=== PATIENT | male | born 1960 | race Caucasian/White ===

== ENCOUNTER 2017-06-27 19:23 | Emergency (ER) | payer MEDICAID ==
[~2017-06-27] VITALS: Ht 182.9 cm; Wt 101.3 kg
[~2017-06-27 19:23] MED LIST: ALPR1TAB21; AMITRIPTYLINE; ANTIBIOTIC; ASPI81TA57 PO; DIAZ10TA PO; DIAZEPAM; DOXY100C2 PO; HYDR-34 PO; HYDROCODONE; LANZOPRAZOLE PO; LNS30CCR PO; LNZ600T PO; MUSCLE RELAXER; NAPR-243 PO; OXC5T PO; OXYC5TAB; PRM25T PO; STOOL SOFTENER; SULF1TAB7; WRF5T PO
[2017-06-27] MEDS ORDERED: CIPR500S3 PO (19:57)
[2017-06-27] MEDS ORDERED: MELO15TA39 PO (19:57)
[2017-06-27] MEDS ORDERED: HYDR-757 PO (19:57)
[2017-06-27] MEDS ORDERED: SENN8.8S7 PO (19:57)
[2017-06-27] MEDS ORDERED: IBUP-1780 PO (19:57)
[2017-06-27] MEDS ORDERED: DIAZ10TA3 (19:57)
[2017-06-27] MEDS ORDERED: CYCL10TA9 (19:57)
[2017-06-27] MEDS ORDERED: AMIT25TA9 (19:57)
[2017-06-27] MEDS ORDERED: METR500T21 PO (19:57)
[2017-06-27] MEDS ORDERED: OMEP20TA7 PO (19:57)
[2017-06-27] MEDS ORDERED: NS IV 1000 ML 1,000 ML IV ONE (20:04)
[2017-06-27 20:10] LABS: BASOPHILS # (AUTO) 0.1 10^3/uL (0.0-0.1); BASOPHILS % (AUTO) 1 % (0-10); EOSINOPHILS # (AUTO) 0.7 10^3/uL (0.0-0.3); EOSINOPHILS % (AUTO) 8 % (0-10); LYMPHOCYTES # (AUTO) 1.9 X 10^3 (1.0-4.0); LYMPHOCYTES % (AUTO) 22 % (12-44); MEAN CORPUSCULAR HEMOGLOBIN 29 PG (25-34); MEAN CORPUSCULAR HGB CONC 34 G/DL (32-36); MEAN CORPUSCULAR VOLUME 86 FL (80-99); MEAN PLATELET VOLUME 10.2 FL (7.4-10.4); MONOCYTES # (AUTO) 1.2 X 10^3 (0.0-1.0); MONOCYTES % (AUTO) 14 % (0-12); NEUTROPHILS % (AUTO) 56 % (42-75); PLATELET COUNT 421 10^3/uL (130-400); RED BLOOD COUNT 5.16 10^6/uL (4.35-5.85); RED CELL DISTRIBUTION WIDTH 14.6 % (10.0-14.5)
[2017-06-27 20:22] LABS: ALANINE AMINOTRANSFERASE 56 U/L (0-55); ALBUMIN 3.6 GM/DL (3.2-4.5); ANION GAP 6 MMOL/L (5-14); ASPARTATE AMINO TRANSFERASE 31 U/L (5-34); BILIRUBIN,TOTAL 0.4 MG/DL (0.1-1.0); BLOOD UREA NITROGEN 21 MG/DL (7-18); BUN/CREATININE RATIO 19; CALCIUM 8.8 MG/DL (8.5-10.1); CARBON DIOXIDE 26 MMOL/L (21-32); CHLORIDE 107 MMOL/L (98-107); CREATININE SERUM 1.11 MG/DL (0.60-1.30); GFR ESTIMATED > 60; GLUCOSE 101 MG/DL (70-105); POTASSIUM 4.2 MMOL/L (3.6-5.0); SODIUM 139 MMOL/L (135-145); TOTAL PROTEIN 6.5 GM/DL (6.4-8.2)
--- NOTE | 2017-06-27 20:49 | ED Abdominal Pain ---
General Chief Complaint: Abdominal/GI Problems Stated Complaint: AB PAIN Nursing Triage Note: C/O ABDOMINAL PAIN/BLOATING, CONSTIPATION, BLOOD IN STOOL, DX WITH DIVERTICULITIS TODAY Sepsis Screen: No Definite Risk Source of Information: Patient Exam Limitations: No Limitations History of Present Illness Time Seen By Provider: 20:00 Initial Comments Here with report of lower abdominal pain and blood in stool. Seen at [facility] earlier today and had CT scan and labs done. They were concerned about diverticular disease and prescribed Cipro and Flagyl. He has not filled that yet. He has had another bloody stool. This all started when he changed his diet to try to get hold there but involving mostly potatoes and meat as his main source of food and he became quite constipated. Over the last week and a half he has had 4 doses of laxatives which did produce stool but he had to push for a hard to get stool started as he is having fairly significant cramping after the laxative. He was able to pass the stool which was initially very hard and then running. Over the last day and a half he has had blood in his stool as well. Does have history of internal hemorrhoids that were fixed. States after a bowel movement he does have blood in his stool. He is on daily aspirin and states that he does bleed easily. Pain is mostly are described as cramping on the left sided. He did have bloating which has decreased since having bowel movements. Has not follow-up with a surgeon since 2009 does have history of partial colectomy. Timing/Duration: 1 Week, Changing Over Time, Getting Worse Severity/Quality: Moderate Location: LUQ, LLQ, Suprapubic Radiation: No Radiation Activities at Onset: None Modifying Factors: Improves With Defecating, Worsens With Eating Associated Symptoms: No Back Pain, No Chest Pain, No Fever/Chills, No Nausea/ Vomiting, No Shortness of Air, No Weakness Allergies and Home Medications Allergies Coded Allergies: No Known Drug Allergies (Unverified , 10/29/10) Home Medications Amitriptyline HCl 25 Mg Tablet, (Reported) Aspirin 81 Mg Tablet., 81 MG PO DAILY, #100 Ref 4 Prescribed by: GILES CHRISTIANSON on 02/18/15 0830 Ciprofloxacin 500 Mg/[address] [facility].rec, 500 MG PO, (Reported) Cyclobenzaprine HCl 10 Mg Tablet, (Reported) Diazepam 10 Mg Tablet, (Reported) Doxycycline Hyclate 100 Mg Capsule, 1 EACH PO BID, #20 Prescribed by: GILES CHRISTIANSON on 02/18/15 0900 Hydrocodone/Acetaminophen 1 Each Tablet, 1 EACH PO, (Reported) Ibuprofen 800 Mg Tablet, 800 MG PO Q8H PRN for PAIN, (Reported) Meloxicam 15 Mg Tablet, 15 MG PO, (Reported) Metronidazole 500 Mg Tablet, 500 MG PO, (Reported) Omeprazole 20 Mg Tablet.dr, 20 MG PO, (Reported) Sennosides 8.8 Mg/5 Ml Syrup, 8.8 MG PO, (Reported) Review of Systems Constitutional: see HPI, No chills, No fever EENTM: No Symptoms Reported Respiratory: No Symptoms Reported Cardiovascular: No Symptoms Reported Gastrointestinal: See HPI, Abdominal Pain, Constipated, Diarrhea, Denies Nausea , Rectal Bleeding, Denies Vomiting Genitourinary: No Symptoms Reported Musculoskeletal: no symptoms reported Skin: no symptoms reported Psychiatric/Neurological: No Symptoms Reported Endocrine: No Symptoms Reported All Other Systems Reviewed Negative Unless Noted: Yes Past Ahevcir-Iqzkih-Iivzwx Hx Patient Social History Alcohol Use: Denies Use Recreational Drug Use: No 2nd Hand Smoke Exposure: No Recent Foreign Travel: No Contact w/Someone Who Travel: No Recent Infectious Disease Expo: No Recent Hopitalizations: Yes (for cellulitis / blood clot) Immunizations Up To Date Tetanus Booster (TDap): Unknown Seasonal Allergies Seasonal Allergies: No Surgeries History of Surgeries: Yes (COLON RESECTION) Surgeries: Appendectomy, Orthopedic, Pancreatic Respiratory History of Respiratory Disorde: No Cardiovascular History of Cardiac Disorders: No Neurological History of Neurological Disord: No Reproductive System Hx Reproductive Disorders: No Sexually Transmitted Disease: No Genitourinary History of Genitourinary Disor: No Gastrointestinal History of Gastrointestinal Di: Yes Gastrointestinal Disorders: Gastroesophageal Reflux, Diverticulosis Musculoskeletal History of Musculoskeletal Dis: Yes Musculoskeletal Disorders: Degenerate Disk Disease, Arthritis, Chronic Back Pain Endocrine History of Endocrine Disorders: No HEENT History of HEENT Disorders: No Cancer History of Cancer: No Psychosocial History of Psychiatric Problem: Yes Behavioral Health Disorders: Anxiety Integumentary History of Skin or Integumenta: No Blood Transfusions History of Blood Disorders: No Reviewed Nursing Assessment Reviewed/Agree w Nursing PMH: Yes Family Medical History Significant Family History: No Pertinent Family Hx Physical Exam Vital Signs VS - Last 72 Hours, by Label 06/27/17 19:58 Temp 98.5 Pulse 100 Resp 18 B/P (MAP) 108/81 Pulse Ox 94 O2 Delivery Room Air Capillary Refill : Less Than 3 Seconds General Appearance: WD/WN, no apparent distress HEENT: PERRL/EOMI, pharynx normal Neck: full range of motion, supple Respiratory: lungs clear, normal breath sounds Cardiovascular: no murmur, tachycardia Peripheral Pulses: 2+ Dorsalis Pedis (R), 2+ Left Dors-Pedis (L), 2+ Radial Pulses (R), 2+ Radial Pulses (L) Gastrointestinal: soft, No guarding, No rebound, tenderness (mild left lower quadrant) Rectal: normal rectal tone, blood streaked stool, heme positive stool, hemorrhoids (question of internal bogginess it may represent hemorrhoids. No external hemorrhoids noted.), No mass, No tenderness Extremities: non-tender, normal inspection Back: normal inspection, no CVA tenderness, no vertebral tenderness Neurologic/Psychiatric: no motor/sensory deficits, alert, oriented x 3 Skin: normal color, warm/dry Progress/Results/Core Measures Results/Orders Lab Results Laboratory Tests Test 06/27/17 19:40 Range/Units White Blood Count 9.0 4.3-11.0 10^3/uL Red Blood Count 5.16 4.35-5.85 10^6/uL Hemoglobin 14.8 13.3-17.7 G/DL Hematocrit 44 40-54 % Mean Corpuscular Volume 86 80-99 FL Mean Corpuscular Hemoglobin 29 25-34 PG Mean Corpuscular Hemoglobin Concent 34 32-36 G/DL Red Cell Distribution Width 14.6 H 10.0-14.5 % Platelet Count 421 H 130-400 10^3/uL Mean Platelet Volume 10.2 7.4-10.4 FL Neutrophils (%) (Auto) 56 42-75 % Lymphocytes (%) (Auto) 22 12-44 % Monocytes (%) (Auto) 14 H 0-12 % Eosinophils (%) (Auto) 8 0-10 % Basophils (%) (Auto) 1 0-10 % Neutrophils # (Auto) 5.0 1.8-7.8 X 10^3 Lymphocytes # (Auto) 1.9 1.0-4.0 X 10^3 Monocytes # (Auto) 1.2 H 0.0-1.0 X 10^3 Eosinophils # (Auto) 0.7 H 0.0-0.3 10^3/uL Basophils # (Auto) 0.1 0.0-0.1 10^3/uL Sodium Level 139 135-145 MMOL/L Potassium Level 4.2 3.6-5.0 MMOL/L Chloride Level 107 98-107 MMOL/L Carbon Dioxide Level 26 21-32 MMOL/L Anion Gap 6 5-14 MMOL/L Blood Urea Nitrogen 21 H 7-18 MG/DL Creatinine 1.11 0.60-1.30 MG/DL Estimat Glomerular Filtration Rate > 60 BUN/Creatinine Ratio 19 Glucose Level 101 70-105 MG/DL Calcium Level 8.8 8.5-10.1 MG/DL Total Bilirubin 0.4 0.1-1.0 MG/DL Aspartate Amino Transf (AST/SGOT) 31 5-34 U/L Alanine Aminotransferase (ALT/SGPT) 56 H 0-55 U/L Alkaline Phosphatase 71 40-136 U/L C-Reactive Protein High Sensitivity 0.50 0.00-0.50 MG/DL Total Protein 6.5 6.4-8.2 GM/DL Albumin 3.6 3.2-4.5 GM/DL My Orders Orders - SAJAN CRUZ MD Cbc With Automated Diff (06/27/17 20:04) Comprehensive Metabolic Panel (06/27/17 20:04) Hs C Reactive Protein (06/27/17 20:04) Ua Culture If Indicated (06/27/17 20:04) Saline Lock/Iv-Start (06/27/17 20:04) Ns Iv 1000 Ml (Sodium Chloride 0.9%) (06/27/17 20:04) General/Regular (06/27/17 Dinner) Medications Given in ED Current Medications Medications Dose Ordered Sig/Janet Route Start Time Stop Time Status Last Admin Dose Admin Sodium Chloride 1,000 ml @ 0 mls/hr Q0M ONCE IV 06/27/17 20:04 06/27/17 20:06 DC 06/27/17 20:14 0 MLS/HR Vital Signs/I&O Vital Sign - Last 12Hours 06/27/17 19:58 Temp 98.5 Pulse 100 Resp 18 B/P (MAP) 108/81 Pulse Ox 94 O2 Delivery Room Air Intake and Output 06/28/17 00:00 Intake Total 1000 ml Balance 1000 ml Blood Pressure Mean: 90 Point of Care Testing Fecal Occult: Positive Progress Note : Progress Note Seen and evaluated. IV, labs and UA ordered. Records requested from [facility]. Records reviewed and showed CT scan with moderate diverticulosis without diverticulitis. Hemoglobin noted to be 16.2 over base of 9.9. Creatinine at outside facility was 1.05. Rectal exam performed and is heme positive. Monitor patient. 2154: Patient is doing better. Labs reviewed and hemoglobin similar although less now. I do believe this is likely related to hydration. Patient states that he is hungry and would like something to eat. I wouldn't feed him although nursing track repair supervisor is busy with a critical patient in the ICU so we'll be a little while. Patient states that's okay and he would like to go home. He was instructed on the need for follow-up. I did give him a list of all the surgeons here in [facility] for follow-up. He needs to have further evaluation related to the rectal bleeding and this was discussed with him. I do believe this is likely internal hemorrhoids related to constipation and hard stools but still needs to be further evaluated. He has diverticulosis as well. Patient instructed on light diet and/or clear liquids. Discharged home with return precautions. Patient verbalize understanding instructions and agreement with plan. Case discussed with Dr. Franco. He will see the patient in clinic this week. Call in the morning for appointment. Departure Impression Impression: Primary Impression: Rectal bleeding Additional Impressions: Diverticulosis Qualified Codes: K57.31 - Diverticulosis of large intestine without perforation or abscess with bleeding Constipation Qualified Codes: K59.00 - Constipation, unspecified Disposition: HOME, SELF-CARE Condition: Stable Departure-Patient Inst. Decision time for Depature: 22:05 Referrals: [facility] (PCP/Family) Primary Care Physician Patient Instructions: Diverticulosis (DC), Gastrointestinal Bleeding (DC), Hemorrhoids (DC), Constipation, Adult (DC) Add. Discharge Instructions: All discharge instructions reviewed with patient and/or family. Voiced understanding. You need to eat a light diet and drink plenty of fluids this week. Call Dr. Franco in the morning for appointment this week for recheck and further evaluation and possible colonoscopy as indicated. Return for worse pain, fever , vomiting, increasing bleeding, weakness or other concerns as needed. You should increase fiber in your diet and avoid the laxatives. Copy Copies To 1: IMMANUEL FRANCO MD, TIMOTHY D MD Jun 27, 2017 20:49
[2017-06-27 22:19] VITALS: BP 112/84
== END 2017-06-27 22:19 | disposition home or self-care (01) ==
LOC: EDUNIT# 19:23 → ER 19:26
DX: K62.5 Hemorrhage of anus and rectum (principal); K57.90 Diverticulosis of intestine, part unspecified, without perforation or abscess without bleeding; F41.9 Anxiety disorder, unspecified; M47.9 Spondylosis, unspecified; K21.9 Gastro-esophageal reflux disease without esophagitis; Z90.49 Acquired absence of other specified parts of digestive tract; Z79.82 Long term (current) use of aspirin
CPT/HCPCS: 36415; 80053; 85025; 86141

== ENCOUNTER 2017-06-28 20:13 | Emergency (ER) | payer MEDICAID ==
[~2017-06-28 20:13] MED LIST changes: +AMIT25TA9; +CIPR500S3 PO; +CYCL10TA9; +DIAZ10TA3; +HYDR-757 PO; +IBUP-1780 PO; +MELO15TA39 PO; +METR500T21 PO; +OMEP20TA7 PO; +SENN8.8S7 PO
--- OUTSIDE RECORDS SUMMARY | 2017-06-28 20:18 | XMS REPORT | Clinical Summary ---
Author Author [facility] Address Unknown Phone Unavailable Care Team Providers Care Plane Tender Name Role Phone PCP Unavailable Source Comments Some departments are not documenting in the electronic medical record. If you do not see the information that you expected, contact Release of Information in the Health Information Management department at [phone] for further assistance in locating additional records[facility] Allergies No Known Allergies Current Medications Prescription Sig. Disp. Refills Start End Date Status Date aspirin 81 mg PO chew Take 1 Tab by mouth 90 Tab 3 02/14/20 Active tablet daily. 11 oxycodone (ROXICODONE) 5 Take 1-3 Tabs by mouth 100 Tab 0 02/14/20 Active mg PO tablet every 3 hours as needed 11 for Pain. oxycodone SR (OXYCONTIN) Take 1 Tab by mouth every 60 Tab 0 02/14/20 Active 10 mg PO tablet 12 hours. 11 warfarin (COUMADIN) 5 mg Take 1 Tab by mouth at 90 Tab 0 20 Active PO tablet bedtime daily. Please 11 start taking this on the night of 02/14/2011. docusate (COLACE) 100 mg Take 1 Cap by mouth twice 180 Cap 0 02/14/20 Active PO capsule daily. [address] Take 1 Cap by mouth 30 Cap 3 02/14/20 Active (PREVACID) 30 mg PO daily. 11 capsule promethazine (PHENERGAN) Take 1 Tab by mouth every 30 Tab 1 02/14/20 Active 25 mg PO tablet 6 hours as needed for 11 Nausea. Active Problems Not on file Social History Tobacco Use Types Packs/Day Years Used Date Never Smoker Alcohol Use Drinks/Week oz/Week Comments No Sex Assigned at Date Recorded Not on file Last Filed Vital Signs Vital Sign Reading Time Taken Blood Pressure 115/74 02/13/2011 12:00 PM CDT Pulse 91 02/13/2011 12:00 PM CDT Temperature 36.8 C (98.3 F) 02/13/2011 12:00 PM CDT Respiratory Rate - - Oxygen Saturation 94% 02/13/2011 12:00 PM CDT Inhaled Oxygen - - Concentration Weight 88 kg (194 lb 0.1 oz) 02/04/2011 6:20 AM CDT Height 182.9 cm (6') 02/03/2011 10:00 AM CDT Body Mass Index 26.31 02/04/2011 6:20 AM CDT Plan of Treatment Health Maintenance Due Date Last Done Comments HEPATITIS C SCREENING 1958 PHYSICAL (COMPREHENSIVE) 1965 EXAM PERTUSSIS VACCINE 1969 TETANUS VACCINE 1975 COLORECTAL CANCER 2008 SCREENING INFLUENZA VACCINE 06/20/2017 Results Not on filefrom Last 3 Months
--- OUTSIDE RECORDS SUMMARY | 2017-06-28 20:19 | XMS REPORT ---
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 Active 34018523 Problem Chronic pain syndrome G89.4 Active 29059507 Problem Elevated platelet count D47.3 Active 637159232 Problem Urinary hesitancy R39.11 Active 7222557 Problem Major depressive disorder, recurrent, moderate F33.1 Active 13490744 Problem Posttraumatic stress disorder F43.10 Active 27790626 Problem Gastroesophageal reflux disease, esophagitis presence not specified K21.9 Active 500721701 Problem Other chronic pain G89.29 Active 01940495 ALLERGIES Substance Reaction Event Type Date Status Benzodiazepines Failed UDS- neg for prescribed meds Non Drug Allergy Sep Active Tramadol 50 Mg Tablet Failed UDS- neg for prescribed meds Non Drug Allergy Sep, Active Hydrocodone Failed UDS- neg for prescribed meds Non Drug Allergy Sep, Active Amphetamine Failed UDS- neg for prescribed meds Non Drug Allergy Sep, Active SOCIAL HISTORY No smoking Hx information available PLAN OF CARE Activity Details Follow Up 3 Months Reason: VITAL SIGNS Height 72 in 2016-10-14 Weight 223.1 lbs 2016-10-14 Heart Rate 80 bpm 2016-10-14 Respiratory Rate 20 2016-10-14 BMI 30.25 kg/m2 2016-10-14 Blood pressure systolic 118 mmHg 2016-10-14 Blood pressure diastolic 74 mmHg 2016-10-14 MEDICATIONS Medication Instructions Dosage Frequency Start Date End Date Duration Status Cymbalta 60 MG Orally Twice a day 1 capsule 12h Jul, 30 days Active Aspir-81 81 MG Orally Once a day 1 tablet 24h Active Diazepam 10 MG Orally must last 30 days four times a day 1 tablet as needed 6h Jul, 30 days Active Amitriptyline HCl 10 MG Orally Once a day 1 tablet 24h 17 Oct, 2015 30 days Active Hydrocodone-Acetaminophen 10-325 MG/15ML Orally every 6 hrs 5 ml as needed 6h Active Abilify 5 MG Orally Once a day 1 tablet 24h Sep, 30 day(s) Active RESULTS No Results PROCEDURES Procedure Date Ordered Related Diagnosis Body Site Office Visit, Est Pt., Level 3 Oct 14, 2016 IMMUNIZATIONS No Known Immunizations
--- OUTSIDE RECORDS SUMMARY | 2017-06-28 20:19 | XMS REPORT ---
Author Author OLIVIA LOWERY [facility] [employer] Address Unknown Phone Unavailable Care Team Providers Care Hr Recruiter Name Role Phone OLIVIA LOWERY CP Unavailable Allergies, Adverse Reactions, Alerts Substance Reaction Event Type Tramadol 50 Mg Tablet Failed UDS- neg for prescribed meds Non Drug Allergy Benzodiazepines Failed UDS- neg for prescribed meds Non Drug Allergy Hydrocodone Failed UDS- neg for prescribed meds Non Drug Allergy Amphetamine Failed UDS- neg for prescribed meds Non Drug Allergy Problems Problem Type Condition Code Onset Dates Condition Status Assessment Posttraumatic stress disorder F43.10 Active Assessment 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 Active Problem Chronic pain syndrome G89.4 Active Problem Portal vein thrombosis I81 Active Problem Mass of sinus R22.0 Active Problem Major depressive disorder, recurrent episode, moderate 296.32 Active Assessment Encounter for immunization Z23 Active Problem History of atrial flutter Z86.79 Active Problem 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 Medications Medication Code System Code Instructions Start Date End Date Status Dosage Aspir-81 [facility] [address]-80 81 MG Orally Once a day 1 tablet Ibuprofen [facility] [address]-46 800 MG Orally Three times a day as needed 1 tablet Diazepam [facility] 70885591195 10 MG TAKE ONE TABLET BY MOUTH FOUR TIMES DAILY NEEDED FOR ANXIETY (MUST LAST 30 DAYS) Amitriptyline HCl [facility] [address]-65 25 MG Orally Once a day Oct 02, 2015 1 tablet Cymbalta [facility] [address]-63 60 MG Orally Once a day Oct 02, 2015 1 capsule Procedures Procedure Coding System Code Date SINGLE IMMUNIZATION ADMIN CPT-4 96669 Oct 02, 2015 Office Visit, Est Pt., Level 3 CPT-4 52408 Oct 02, 2015 FLUARIX QUAD (3 & UP)--2014 CPT-4 98722 Oct 02, 2015 Vital Signs Date/Time: Oct 02, 2015 Blood Pressure Systolic 122 mmHg Weight 215.8 lbs Height 72 in BMI 29.26 Index Blood Pressure Diastolic 82 mmHg Results No Known Results Immunizations Vaccine Administration Date FLUARIX QUAD (3 & UP)-[employer]-2014Oct 02, 2015 Summary Purpose [employer] Submission
--- OUTSIDE RECORDS SUMMARY | 2017-06-28 20:19 | XMS REPORT ---
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
--- OUTSIDE RECORDS SUMMARY | 2017-06-28 20:19 | XMS REPORT ---
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 Active Problem Chronic pain syndrome G89.4 Active Problem Portal vein thrombosis I81 Active Problem Mass of sinus R22.0 Active Problem Major depressive disorder, recurrent episode, moderate 296.32 Active Assessment Posttraumatic stress disorder F43.10 Active Problem History of atrial flutter Z86.79 Active Problem 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 Medications Medication Code System Code Instructions Start Date End Date Status Dosage Aspir-81 [facility] [address]-25 81 MG Orally Once a day 1 tablet Diazepam [facility] [address]-83 10 MG TAKE ONE TABLET BY MOUTH FOUR TIMES DAILY NEEDED FOR ANXIETY Cymbalta [facility] [address]-60 60 MG Orally Once a day Oct 02, 2015 1 capsule Amitriptyline HCl [facility] [address]-09 10 MG Orally Once a day Nov 06, 2015 1 tablet Procedures Procedure Coding System Code Date Office Visit, Est Pt., Level 3 CPT-4 64691 January 20, 2016 Vital Signs Date/Time: January 20, 2016 Cardiac Monitoring Heart Rate 88 bpm Weight 212.5 lbs Height 72 in BMI 28.82 Index Blood Pressure Diastolic 80 mmHg Blood Pressure Systolic 130 mmHg Results No Known Results Summary Purpose [employer] Submission
--- OUTSIDE RECORDS SUMMARY | 2017-06-28 20:19 | XMS REPORT ---
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
--- OUTSIDE RECORDS SUMMARY | 2017-06-28 20:19 | XMS REPORT ---
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 46507228 Problem Chronic pain syndrome G89.4 Active 00034332 Problem Elevated platelet count D47.3 Active 299672567 Problem Urinary hesitancy R39.11 Active 8131419 Problem Major depressive disorder, recurrent, moderate F33.1 Active 21222400 Problem Posttraumatic stress disorder F43.10 Active 88924372 Problem Gastroesophageal reflux disease, esophagitis presence not specified K21.9 Active 068776079 Problem Other chronic pain G89.29 Active 45702962 ALLERGIES Unknown Allergies SOCIAL HISTORY No smoking Hx information available PLAN OF CARE VITAL SIGNS MEDICATIONS Unknown Medications RESULTS No Results PROCEDURES No Known procedures IMMUNIZATIONS No Known Immunizations
--- OUTSIDE RECORDS SUMMARY | 2017-06-28 20:19 | XMS REPORT ---
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 Medications Medication Code System Code Instructions Start Date End Date Status Dosage Ibuprofen [facility] [address]-39 800 MG Orally Three times a day as needed 1 tablet Valium [facility] [address]-09 10 MG Orally 4 times a day PRN Must last 30 days 1 tablet Seroquel XR [facility] [address]-81 400 MG Orally Once a day Jul 22, 2015 1 tablet in the evening Aspir-81 [facility] [address]-09 81 MG Orally Once a day 1 tablet Procedures Procedure Coding System Code Date FLUARIX QUAD (3 & UP)--2014 CPT-4 85272 Jul 22, 2015 SINGLE IMMUNIZATION ADMIN CPT-4 55555 Jul 22, 2015 Office Visit, Est Pt., Level 3 CPT-4 89408 Jul 22, 2015 Vital Signs Date/Time: Jul 22, 2015 Cardiac Monitoring Heart Rate 88 bpm Weight 214.6 lbs Height 72 in BMI 29.10 Index Blood Pressure Diastolic 80 mmHg Blood Pressure Systolic 100 mmHg Results No Known Results Immunizations Vaccine Administration Date FLUARIX QUAD (3 & UP)-[facility]-2014Jul 22, 2015 Summary Purpose eClinicalWorks Submission
--- OUTSIDE RECORDS SUMMARY | 2017-06-28 20:19 | XMS REPORT ---
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 Active 94542401 Problem Chronic pain syndrome G89.4 Active 10649925 Problem Elevated platelet count D47.3 Active 198472732 Problem Urinary hesitancy R39.11 Active 9295694 Problem Major depressive disorder, recurrent, moderate F33.1 Active 62719172 Problem Posttraumatic stress disorder F43.10 Active 46429291 Problem Gastroesophageal reflux disease, esophagitis presence not specified K21.9 Active 322512398 Problem Other chronic pain G89.29 Active 36446598 ALLERGIES Unknown Allergies SOCIAL HISTORY No smoking Hx information available PLAN OF CARE VITAL SIGNS MEDICATIONS Unknown Medications RESULTS No Results PROCEDURES No Known procedures IMMUNIZATIONS No Known Immunizations
--- OUTSIDE RECORDS SUMMARY | 2017-06-28 20:19 | XMS REPORT ---
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 [address]-05 10 mg TAKE ONE TABLET BY MOUTH FOUR TIMES DAILY NEEDED FOR ANXIETY Results No Known Results Summary Purpose eClinicalWorks Submission
--- OUTSIDE RECORDS SUMMARY | 2017-06-28 20:19 | XMS REPORT ---
Author Author NAHOMI FLORES e[employer] Address Unknown Phone Unavailable Care Team Providers Care Order Entry Administrator Name Role Phone NAHOMI FLORES CP Unavailable Allergies, Adverse Reactions, Alerts Substance Reaction Event Type Tramadol 50 Mg Tablet Failed UDS- neg for prescribed meds Non Drug Allergy Benzodiazepines Failed UDS- neg for prescribed meds Non Drug Allergy Hydrocodone Failed UDS- neg for prescribed meds Non Drug Allergy Amphetamine Failed UDS- neg for prescribed meds Non Drug Allergy Problems Problem Type Condition Code Onset Dates Condition Status Assessment Paroxysmal atrial fibrillation I48.0 Active Problem Paroxysmal atrial fibrillation I48.0 Active Problem Chronic pain syndrome G89.4 Active Problem Mass of sinus R22.0 Active Assessment Mass of sinus R22.0 Active Assessment Low back pain M54.5 Active Problem Portal vein thrombosis I81 Active Problem Major depressive disorder, recurrent episode, moderate 296.32 Active Medications Medication Code System Code Instructions Start Date End Date Status Dosage Valium [facility] [address]-86 10 MG Orally 4 times a day PRN Must last 30 days 1 tablet Ibuprofen [facility] [address]-12 800 MG Orally Three times a day as needed 1 tablet Abilify [facility] [address]-24 10 MG Orally Once a day March 20, 2015 1 tablet Aspir-81 [facility] [address]-00 81 MG Orally Once a day 1 tablet Procedures Procedure Coding System Code Date ASSAY OF UREA NITROGEN CPT-4 82707 Jun 21, 2015 ASSAY OF CREATININE CPT-4 82139 Jun 21, 2015 Office Visit, Est Pt., Level 4 CPT-4 33927 Jun 21, 2015 Vital Signs Date/Time: Jun 21, 2015 Temperature 97.7 F Weight 216.1 lbs Height 72 in BMI 29.31 Index Blood Pressure Diastolic 74 mmHg Blood Pressure Systolic 122 mmHg Cardiac Monitoring Heart Rate 76 bpm Results No Known Results Summary Purpose eClinicalWorks Submission
--- OUTSIDE RECORDS SUMMARY | 2017-06-28 20:19 | XMS REPORT ---
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
--- OUTSIDE RECORDS SUMMARY | 2017-06-28 20:19 | XMS REPORT ---
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 Active 13410783 Problem History of atrial flutter Z86.79 Active 553445550 Problem Portal vein thrombosis I81 Active 31262831 Problem Elevated platelet count D47.3 Active 903480099 Problem Urinary hesitancy R39.11 Active 2791386 Problem Posttraumatic stress disorder F43.10 Active 47852403 Problem 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
--- OUTSIDE RECORDS SUMMARY | 2017-06-28 20:20 | XMS REPORT ---
Author Author NAHOMI FLORES 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 Active 11691289 Problem Chronic pain syndrome G89.4 Active 45787746 Problem Elevated platelet count D47.3 Active 710165742 Problem Urinary hesitancy R39.11 Active 6738861 Problem Major depressive disorder, recurrent, moderate F33.1 Active 93210559 Problem Posttraumatic stress disorder F43.10 Active 09689881 Problem Gastroesophageal reflux disease, esophagitis presence not specified K21.9 Active 842405891 Problem Other chronic pain G89.29 Active 15012998 ALLERGIES Substance Reaction Event Type Date Status Tramadol 50 Mg Tablet Failed UDS- neg for prescribed meds Non Drug Allergy Sep, Active Benzodiazepines Failed UDS- neg for prescribed meds Non Drug Allergy Sep Active Hydrocodone Failed UDS- neg for prescribed meds Non Drug Allergy Sep, Active Amphetamine Failed UDS- neg for prescribed meds Non Drug Allergy Sep, Active SOCIAL HISTORY No smoking Hx information available PLAN OF CARE Activity Details Follow Up 4 Weeks Reason:f/u results VITAL SIGNS Height 72 in 2016-10-14 Weight 223.8 lbs 2016-10-14 Temperature 97.7 degrees Fahrenheit 2016-10-14 Heart Rate 78 bpm 2016-10-14 Respiratory Rate 20 2016-10-14 BMI 30.35 kg/m2 2016-10-14 Blood pressure systolic 136 mmHg 2016-10-14 Blood pressure diastolic 83 mmHg 2016-10-14 MEDICATIONS Medication Instructions Dosage Frequency Start Date End Date Duration Status Diazepam 10 MG Orally must last 30 days four times a day 1 tablet as needed 6h Jul, 30 days Active Amitriptyline HCl 10 MG Orally Once a day 1 tablet 24h 17 Oct, 2015 30 days Active Abilify 5 MG Orally Once a day 1 tablet 24h Sep, 30 day(s) Active Cymbalta 60 MG Orally Twice a day 1 capsule 12h Jul, 30 days Active Aspir-81 81 MG Orally Once a day 1 tablet 24h Active Hydrocodone-Acetaminophen 10-325 MG/15ML Orally every 6 hrs 5 ml as needed 6h Active Pantoprazole Sodium 40 mg Orally Once a day 1 tablet 24h Sep, 30 day(s) Active RESULTS Name Result Date Reference Range UA W/CULTURE IF INDICATED (IN HOUSE) 2016-10-14 Lot # [id number] Exp date 07/2017 Clarity clear Color yellow Odor yes GLU neg RAY neg KET neg SG 1.015 BLO neg pH 5.5 Protein neg URO 0.2 NIT neg JASMINA neg Lot # Exp date PROCEDURES Procedure Date Ordered Related Diagnosis Body Site URINALYSIS, AUTO, W/O SCOPE Oct 14, 2016 Office Visit, Est Pt., Level 3 Oct 14, 2016 IMMUNIZATIONS No Known Immunizations
--- OUTSIDE RECORDS SUMMARY | 2017-06-28 20:20 | XMS REPORT ---
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
--- OUTSIDE RECORDS SUMMARY | 2017-06-28 20:20 | XMS REPORT ---
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
--- OUTSIDE RECORDS SUMMARY | 2017-06-28 20:20 | XMS REPORT ---
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
--- OUTSIDE RECORDS SUMMARY | 2017-06-28 20:20 | XMS REPORT ---
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
--- OUTSIDE RECORDS SUMMARY | 2017-06-28 20:20 | XMS REPORT ---
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 Active 49255614 Assessment Posttraumatic stress disorder F43.10 Jul, Active 48685250 Problem Posttraumatic stress disorder F43.10 Active 79207517 Problem 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 Active 99989870 Problem Chronic pain syndrome G89.4 Active 76151109 Problem Portal vein thrombosis I81 Active 74810712 Problem Major depressive disorder, recurrent, moderate F33.1 Active 76312428 Problem Mass of sinus R22.0 Active 2153488 ALLERGIES Substance Reaction Event Type Date Status Tramadol 50 Mg Tablet Failed UDS- neg for prescribed meds Non Drug Allergy Jul, Active Benzodiazepines Failed UDS- neg for prescribed meds Non Drug Allergy Jul Active Hydrocodone Failed UDS- neg for prescribed meds Non Drug Allergy Jul, Active Amphetamine Failed UDS- neg for prescribed meds Non Drug Allergy Jul, Active SOCIAL HISTORY No smoking Hx information available PLAN OF CARE VITAL SIGNS Height 72 in 2016-07-27 Weight 217.4 lbs 2016-07-27 Heart Rate 108 bpm 2016-07-27 Respiratory Rate 20 2016-07-27 BMI 29.48 kg/m2 2016-07-27 Blood pressure systolic 97 mmHg 2016-07-27 Blood pressure diastolic 71 mmHg 2016-07-27 MEDICATIONS Medication Instructions Dosage Frequency Start Date End Date Duration Status Diazepam 10 MG Orally must last 30 days four times a day 1 tablet as needed 6h Jul, 30 days Active Hydrocodone-Acetaminophen 10-325 MG/15ML Orally every 6 hrs 5 ml as needed 6h Active Cymbalta 60 MG Orally Once a day 1 capsule 24h 13 Sep, 2015 30 days Active Amitriptyline HCl 10 MG Orally Once a day 1 tablet 24h 17 Oct, 2015 30 days Active Aspir-81 81 MG Orally Once a day 1 tablet 24h Active Cymbalta 60 MG Orally Twice a day 1 capsule 12h Jul, 30 day(s) Active RESULTS No Results PROCEDURES Procedure Date Ordered Related Diagnosis Body Site Office Visit, Est Pt., Level 3 Jul 27, 2016 IMMUNIZATIONS No Known Immunizations
--- OUTSIDE RECORDS SUMMARY | 2017-06-28 20:20 | XMS REPORT ---
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 Medications Medication Code System Code Instructions Start Date End Date Status Dosage Cymbalta [facility] [address]-51 30 MG Orally Twice a day Apr 20, 2016 1 capsule Aspir-81 [facility] [address]-76 81 MG Orally Once a day 1 tablet Diazepam [facility] [address]-80 10 mg TAKE ONE TABLET BY MOUTH FOUR TIMES DAILY NEEDED FOR ANXIETY Amitriptyline HCl [facility] [address]-70 10 MG Orally Once a day Nov 06, 2015 1 tablet Cymbalta [facility] [address]-21 60 MG Orally Once a day Oct 02, 2015 1 capsule Procedures Procedure Coding System Code Date Office Visit, Est Pt., Level 3 CPT-4 25419 Apr 20, 2016 Vital Signs Date/Time: Apr 20, 2016 Cardiac Monitoring Heart Rate 100 bpm Weight 212.9 lbs Height 72 in BMI 28.87 Index Blood Pressure Diastolic 80 mmHg Blood Pressure Systolic 120 mmHg Results No Known Results Summary Purpose eClinicalWorks Submission
--- OUTSIDE RECORDS SUMMARY | 2017-06-28 20:20 | XMS REPORT ---
Author Author NAHOMI FLORES Organization [employer] Address Unknown Phone Unavailable Care Team Providers Care Filter Tender Name Role Phone NAHOMI FLORES Unavailable Allergies No Known Allergies Problems Problem Type Condition Code Onset Dates Condition Status Problem Paroxysmal atrial fibrillation I48.0 Active Problem Chronic pain syndrome G89.4 Active Problem Mass of sinus R22.0 Active Problem Portal vein thrombosis I81 Active Problem Major depressive disorder, recurrent episode, moderate 296.32 Active Medications No Known Medications Results No Known Results Summary Purpose eClinicalWorks Submission
--- OUTSIDE RECORDS SUMMARY | 2017-06-28 20:23 | XMS REPORT | Continuity of Care Document ---
Author Author Formerly [facility], [facility] Address Unknown Phone Unavailable Allergies Active Description Code Type Severity Reaction Onset Reported/Identified Relationship to Patient Clinical Status Yes Darvocet-N 100 Drug Allergy N/A N/A 10/10/2009 Yes Darvocet-N 100 Drug Allergy 10/10/2009 Yes No Known Drug Allergies [id number] Drug Allergy Unknown N/ A 10/29/2010 Yes prednisone 10 mg tablet Drug Allergy N/A N/A 07/23/2014 Yes tramadol 50 mg tablet Drug Allergy N/A N/A 11/20/2014 Yes amphetamine Drug Allergy N/A N/A 11/20/2014 Yes Benzodiazepines Drug Allergy N/A N/A 11/20/2014 Yes hydrocodone Drug Allergy N/A N/A 11/20/2014 Medications Problems Date Dx Coded Attending Type Code Diagnosis Diagnosed By 04/26/2008 784.0 headache 04/26/2008 RYNE ROGERS BRENNEN JAUN 784.0 headache 04/26/2008 784.0 headache 04/26/2008 RYNE ROGERS BRENNEN LEPEH 784.0 headache 04/26/2008 RYNE ROGERS BRENNEN JAUN 784.0 headache 04/26/2008 RYNE ROGERS BRENNEN JAUN 784.0 headache 04/26/2008 VIRGEN DO, SHERRON K 784.0 headache 04/26/2008 RYAN HALL APRN 784.0 headache 04/26/2008 VIRGEN DO, SHERRON K 784.0 headache 04/26/2008 VIRGEN DO, SHERRON K 784.0 headache 04/26/2008 VIRGEN DO, SHERRON K 784.0 headache 04/26/2008 VIRGEN DO, SHERRON K 784.0 headache 04/26/2008 VIRGEN DO, SHERRON K 784.0 headache 04/26/2008 VIRGEN DO, SHERRON K 784.0 headache 04/26/2008 VIRGEN DO, SHERRON K 784.0 headache 04/26/2008 VIRGEN DO, SHERRON K 784.0 headache 04/26/2008 VIRGEN DO, SHERRON K 784.0 headache 04/26/2008 VIRGEN DO, SHERRON K 784.0 headache 04/26/2008 BEVERLEY STAFF RESEARCH ASSOCIATE, OLIVIA M 784.0 headache 04/26/2008 VIRGEN DO, SHERRON K 784.0 headache 04/26/2008 VIRGEN DO, SHERRON K 784.0 headache 04/26/2008 BEVERLEY STAFF RESEARCH ASSOCIATE, OLIVIA M 784.0 headache 04/26/2008 VIRGEN DO, SHERRON K 784.0 headache 06/09/2008 266.2 B12 DEF W/O ANEMIA 06/09/2008 RYNE ROGERS BRENNEN ZAMORANO 266.2 B12 DEF W/O ANEMIA 06/09/2008 266.2 B12 DEF W/O ANEMIA 06/09/2008 RYNE ROGERS BRENNEN ZAMORANO 266.2 B12 DEF W/O ANEMIA 06/09/2008 RYNE ROGERS BRENNEN ZAMORANO 266.2 B12 DEF W/O ANEMIA 06/09/2008 RYNE ROGERS BRENNEN ZAMORANO 266.2 B12 DEF W/O ANEMIA 06/09/2008 VIRGEN DO, SHERRON K 266.2 B12 DEF W/O ANEMIA 06/09/2008 RAFAEL ROGERS RYAN L 266.2 B12 DEF W/O ANEMIA 06/09/2008 VIRGEN DO, SHERRON K 266.2 B12 DEF W/O ANEMIA 06/09/2008 VIRGEN DO, SHERRON K 266.2 B12 DEF W/O ANEMIA 06/09/2008 VIRGEN DO, SHERRON K 266.2 B12 DEF W/O ANEMIA 06/09/2008 VIRGEN DO, SHERRON K 266.2 B12 DEF W/O ANEMIA 06/09/2008 VIRGEN DO, SHERRON K 266.2 B12 DEF W/O ANEMIA 06/09/2008 VIRGEN DO, SHERRON K 266.2 B12 DEF W/O ANEMIA 06/09/2008 VIRGEN DO, SHERRON K 266.2 B12 DEF W/O ANEMIA 06/09/2008 VIRGEN DO, SHERRON K 266.2 B12 DEF W/O ANEMIA 06/09/2008 VIRGEN DO, SHERRON K 266.2 B12 DEF W/O ANEMIA 06/09/2008 VIRGEN DO, SHERRON K 266.2 B12 DEF W/O ANEMIA 06/09/2008 OLIVIA AUGUSTINE 266.2 B12 DEF W/O ANEMIA 06/09/2008 VIRGEN DO, SHERRON K 266.2 B12 DEF W/O ANEMIA 06/09/2008 VIRGEN DO, SHERRON K 266.2 B12 DEF W/O ANEMIA 06/09/2008 OLIVIA AUGUSTINE M 266.2 B12 DEF W/O ANEMIA 06/09/2008 VIRGEN DO, SHERRON K 266.2 B12 DEF W/O ANEMIA 07/04/2008 285.9 ANEMIA 07/04/2008 536.8 Dyspepsia 07/04/2008 MICHELE PROTECTIVE SIGNAL SUPERINTENDENT, BRENNEN LEPEH 285.9 ANEMIA 07/04/2008 MICHELE PROTECTIVE SIGNAL SUPERINTENDENT, BRENNEN LEPEH 536.8 Dyspepsia 07/04/2008 285.9 ANEMIA 07/04/2008 536.8 Dyspepsia 07/04/2008 MICHELE PROTECTIVE SIGNAL SUPERINTENDENT, BRENNEN LEPEH 285.9 ANEMIA 07/04/2008 MICHELE PROTECTIVE SIGNAL SUPERINTENDENT, BRENNEN LEPEH 536.8 Dyspepsia 07/04/2008 MICHELE PROTECTIVE SIGNAL SUPERINTENDENT, BRENNEN LEPEH 285.9 ANEMIA 07/04/2008 MICHELE PROTECTIVE SIGNAL SUPERINTENDENT, BRENNEN LEPEH 536.8 Dyspepsia 07/04/2008 MICHELE PROTECTIVE SIGNAL SUPERINTENDENT, BRENNEN LEPEH 285.9 ANEMIA 07/04/2008 MICHELE PROTECTIVE SIGNAL SUPERINTENDENT, BRENNEN LEPEH 536.8 Dyspepsia 07/04/2008 VIRGEN DO, SHERRON K 285.9 ANEMIA 07/04/2008 VIRGEN DO, SHERRON K 536.8 Dyspepsia 07/04/2008 MADL PROTECTIVE SIGNAL SUPERINTENDENT, RYAN L 285.9 ANEMIA 07/04/2008 MADL PROTECTIVE SIGNAL SUPERINTENDENT, RYAN L 536.8 Dyspepsia 07/04/2008 VIRGEN DO, SHERRON K 285.9 ANEMIA 07/04/2008 VIRGEN DO, SHERRON K 536.8 Dyspepsia 07/04/2008 VIRGEN DO, SHERRON K 285.9 ANEMIA 07/04/2008 VIRGEN DO, SHERRON K 536.8 Dyspepsia 07/04/2008 VIRGEN DO, SHERRON K 285.9 ANEMIA 07/04/2008 VIRGEN DO, SHERRON K 536.8 Dyspepsia 07/04/2008 VIRGEN DO, SHERRON K 285.9 ANEMIA 07/04/2008 VIRGEN DO, SHERRON K 536.8 Dyspepsia 07/04/2008 VIRGEN DO, SHERRON K 285.9 ANEMIA 07/04/2008 VIRGEN DO, SHERRON K 536.8 Dyspepsia 07/04/2008 VIRGEN DO, SHERRON K 285.9 ANEMIA 07/04/2008 VIRGEN DO, SHERRON K 536.8 Dyspepsia 07/04/2008 VIRGEN DO, SHERRON K 285.9 ANEMIA 07/04/2008 VIRGEN DO, SHERRON K 536.8 Dyspepsia 07/04/2008 VIRGEN DO, SHERRON K 285.9 ANEMIA 07/04/2008 VIRGEN DO, SHERRON K 536.8 Dyspepsia 07/04/2008 VIRGEN DO, SHERRON K 285.9 ANEMIA 07/04/2008 VIRGEN DO, SHERRON K 536.8 Dyspepsia 07/04/2008 VIRGEN DO, SHERRON K 285.9 ANEMIA 07/04/2008 VIRGEN DO, SHERRON K 536.8 Dyspepsia 07/04/2008 BEVERLEY DIAZ, OLIVIA M 285.9 ANEMIA 07/04/2008 BEVERLEY DIAZ, OLIVIA M 536.8 Dyspepsia 07/04/2008 VIRGEN DO, SHERRON K 285.9 ANEMIA 07/04/2008 VIRGEN DO, SHERRON K 536.8 Dyspepsia 07/04/2008 VIRGEN DO, SHERRON K 285.9 ANEMIA 07/04/2008 VIRGEN DO, SHERRON K 536.8 Dyspepsia 07/04/2008 BEVERLEY DIAZ, OLIVIA M 285.9 ANEMIA 07/04/2008 BEVERLEY DIAZ, OLIVIA M 536.8 Dyspepsia 07/04/2008 VIRGEN DO, SHERRON K 285.9 ANEMIA 07/04/2008 VIRGEN DO, SHERRON K 536.8 Dyspepsia 09/04/2008 528.9 Mouth Pain 09/04/2008 RYNE ROGERS BRENNEN JAUN 528.9 Mouth Pain 09/04/2008 528.9 Mouth Pain 09/04/2008 BRENNEN MICHELE APRNH 528.9 Mouth Pain 09/04/2008 BRENNEN MICHELE APRNH 528.9 Mouth Pain 09/04/2008 BRENNEN MICHELE APRNH 528.9 Mouth Pain 09/04/2008 VIRGEN DO, SHERRON K 528.9 Mouth Pain 09/04/2008 RYAN HALL APRN 528.9 Mouth Pain 09/04/2008 VIRGEN DO, SHERRON K 528.9 Mouth Pain 09/04/2008 VIRGEN DO, SHERRON K 528.9 Mouth Pain 09/04/2008 VIRGEN DO, SHERRON K 528.9 Mouth Pain 09/04/2008 VIRGEN DO, SHERRON K 528.9 Mouth Pain 09/04/2008 VIRGEN DO, SHERRON K 528.9 Mouth Pain 09/04/2008 VIRGEN DO, SHERRON K 528.9 Mouth Pain 09/04/2008 VIRGEN DO, SHERRON K 528.9 Mouth Pain 09/04/2008 VIRGEN DO, SHERRON K 528.9 Mouth Pain 09/04/2008 VIRGEN DO, SHERRON K 528.9 Mouth Pain 09/04/2008 VIRGEN DO, SHERRON K 528.9 Mouth Pain 09/04/2008 OLIVIA AUGUSTINE M 528.9 Mouth Pain 09/04/2008 VIRGEN DO, SHERRON K 528.9 Mouth Pain 09/04/2008 VIRGEN DO, SHERRON K 528.9 Mouth Pain 09/04/2008 OLIVIA AUGSUTINE 528.9 Mouth Pain 09/04/2008 VIRGEN DO, SHERRON K 528.9 Mouth Pain 01/23/2009 302.72 MALE ERECTILE DISORDER 01/23/2009 780.79 feeling tired or poorly 01/23/2009 BRENNEN MICHELE APRN 302.72 MALE ERECTILE DISORDER 01/23/2009 BRENNEN MICHELE APRN 780.79 feeling tired or poorly 01/23/2009 302.72 MALE ERECTILE DISORDER 01/23/2009 780.79 feeling tired or poorly 01/23/2009 BRENNEN MICHELE APRN 302.72 MALE ERECTILE DISORDER 01/23/2009 BRENNEN MICHELE APRN 780.79 feeling tired or poorly 01/23/2009 BRENNEN MICHELE APRN 302.72 MALE ERECTILE DISORDER 01/23/2009 BRENNEN MICHELE APRN 780.79 feeling tired or poorly 01/23/2009 BRENNEN MICHELE APRN 302.72 MALE ERECTILE DISORDER 01/23/2009 BRENNEN MICHELE APRN 780.79 feeling tired or poorly 01/23/2009 VIRGEN DO, SHERRON K 302.72 MALE ERECTILE DISORDER 01/23/2009 VIRGEN DO, SHERRON K 780.79 feeling tired or poorly 01/23/2009 MADL PROTECTIVE SIGNAL SUPERINTENDENT, RYAN L 302.72 MALE ERECTILE DISORDER 01/23/2009 MADL PROTECTIVE SIGNAL SUPERINTENDENT, RYAN L 780.79 feeling tired or poorly 01/23/2009 VIRGEN DO, SHERRON K 302.72 MALE ERECTILE DISORDER 01/23/2009 VIRGEN DO, SHERRON K 780.79 feeling tired or poorly 01/23/2009 VIRGEN DO, SHERRON K 302.72 MALE ERECTILE DISORDER 01/23/2009 VIRGEN DO, SHERRON K 780.79 feeling tired or poorly 01/23/2009 VIRGEN DO, SHERRON K 302.72 MALE ERECTILE DISORDER 01/23/2009 VIRGEN DO, SHERRON K 780.79 feeling tired or poorly 01/23/2009 VIRGEN DO, SHERRON K 302.72 MALE ERECTILE DISORDER 01/23/2009 VIRGEN DO, SHERRON K 780.79 feeling tired or poorly 01/23/2009 VIRGEN DO, SHERRON K 302.72 MALE ERECTILE DISORDER 01/23/2009 VIRGEN DO, SHERRON K 780.79 feeling tired or poorly 01/23/2009 VIRGEN DO, SHERRON K 302.72 MALE ERECTILE DISORDER 01/23/2009 VIRGEN DO, SHERRON K 780.79 feeling tired or poorly 01/23/2009 VIRGEN DO, SHERRON K 302.72 MALE ERECTILE DISORDER 01/23/2009 VIRGEN DO, SHERRON K 780.79 feeling tired or poorly 01/23/2009 VIRGEN DO, SHERRON K 302.72 MALE ERECTILE DISORDER 01/23/2009 VIRGEN DO, SHERRON K 780.79 feeling tired or poorly 01/23/2009 VIRGEN DO, SHERRON K 302.72 MALE ERECTILE DISORDER 01/23/2009 VIRGEN DO, SHERRON K 780.79 feeling tired or poorly 01/23/2009 VIRGEN DO, SHERRON K 302.72 MALE ERECTILE DISORDER 01/23/2009 VIRGEN DO, SHERRON K 780.79 feeling tired or poorly 01/23/2009 OLIVIA AUGUSTINE 302.72 MALE ERECTILE DISORDER 01/23/2009 OLIVIA AUGUSTINE 780.79 feeling tired or poorly 01/23/2009 VIRGEN DO, SHERRON K 302.72 MALE ERECTILE DISORDER 01/23/2009 VIRGEN DO, SHERRON K 780.79 feeling tired or poorly 01/23/2009 VIRGEN DO, SHERRON K 302.72 MALE ERECTILE DISORDER 01/23/2009 VIRGEN DO, SHERRON K 780.79 feeling tired or poorly 01/23/2009 OLIVIA AUGUSTINE M 302.72 MALE ERECTILE DISORDER 01/23/2009 BEVERLEY DIAZ, OLIVIA M 780.79 feeling tired or poorly 01/23/2009 VIRGEN DO, SHERRON K 302.72 MALE ERECTILE DISORDER 01/23/2009 VIRGEN DO, SHERRON K 780.79 feeling tired or poorly 03/06/2009 789.00 Abdominal Pain 03/06/2009 MICHELE PROTECTIVE SIGNAL SUPERINTENDENT, BRENNEN JAUN 789.00 Abdominal Pain 03/06/2009 789.00 Abdominal Pain 03/06/2009 MICHELE PROTECTIVE SIGNAL SUPERINTENDENT, BRENNEN JAUN 789.00 Abdominal Pain 03/06/2009 MICHELE PROTECTIVE SIGNAL SUPERINTENDENT, BRENNEN LEPEH 789.00 Abdominal Pain 03/06/2009 MICHELE PROTECTIVE SIGNAL SUPERINTENDENT, BRENNEN LEPEH 789.00 Abdominal Pain 03/06/2009 VIRGEN DO, SHERRON K 789.00 Abdominal Pain 03/06/2009 MADVanessa PROTECTIVE SIGNAL SUPERINTENDENT, RYAN L 789.00 Abdominal Pain 03/06/2009 VIRGEN DO, SHERRON K 789.00 Abdominal Pain 03/06/2009 VIRGEN DO, SHERRON K 789.00 Abdominal Pain 03/06/2009 VIRGEN DO, SHERRON K 789.00 Abdominal Pain 03/06/2009 VIRGEN DO, SHERRON K 789.00 Abdominal Pain 03/06/2009 VIRGEN DO, SHERRON K 789.00 Abdominal Pain 03/06/2009 VIRGEN DO, SHERRON K 789.00 Abdominal Pain 03/06/2009 VIRGEN DO, SHERRON K 789.00 Abdominal Pain 03/06/2009 VIRGEN DO, SHERRON K 789.00 Abdominal Pain 03/06/2009 VIRGEN DO, SHERRON K 789.00 Abdominal Pain 03/06/2009 VIRGEN DO, SHERRON K 789.00 Abdominal Pain 03/06/2009 OLIVIA AUGUSTINE 789.00 Abdominal Pain 03/06/2009 VIRGEN DO, SHERRON K 789.00 Abdominal Pain 03/06/2009 VIRGEN DO, SHERRON K 789.00 Abdominal Pain 03/06/2009 OLIVIA AUGUSTINE 789.00 Abdominal Pain 03/06/2009 VIRGEN DO, SHERRON K 789.00 Abdominal Pain 06/13/2009 307.40 INSOMNIA 06/13/2009 V04.81 FLU SHOT 06/13/2009 MICHELE PROTECTIVE SIGNAL SUPERINTENDENT, BRENNEN ZAMORANO 307.40 INSOMNIA 06/13/2009 MICHELE PROTECTIVE SIGNAL SUPERINTENDENT, BRENNEN ZAMORANO V04.81 FLU SHOT 06/13/2009 307.40 INSOMNIA 06/13/2009 V04.81 FLU SHOT 06/13/2009 MICHELE PROTECTIVE SIGNAL SUPERINTENDENT, BRENNEN ZAMORANO 307.40 INSOMNIA 06/13/2009 MICHELE PROTECTIVE SIGNAL SUPERINTENDENT, BRENNEN ZAMORANO V04.81 FLU SHOT 06/13/2009 MICHELE PROTECTIVE SIGNAL SUPERINTENDENT, BRENNEN ZAMORANO 307.40 INSOMNIA 06/13/2009 MICHELE PROTECTIVE SIGNAL SUPERINTENDENT, BRENNEN ZAMORANO V04.81 FLU SHOT 06/13/2009 MICHELE PROTECTIVE SIGNAL SUPERINTENDENT, BRENNEN ZAMORANO 307.40 INSOMNIA 06/13/2009 MICHELE PROTECTIVE SIGNAL SUPERINTENDENT, BRENNEN ZAMORANO V04.81 FLU SHOT 06/13/2009 VIRGEN DO, SHERRON K 307.40 INSOMNIA 06/13/2009 VIRGEN DO, SHERRON K V04.81 FLU SHOT 06/13/2009 MADL PROTECTIVE SIGNAL SUPERINTENDENT, RYAN L 307.40 INSOMNIA 06/13/2009 MADL PROTECTIVE SIGNAL SUPERINTENDENT, RYAN L V04.81 FLU SHOT 06/13/2009 VIRGEN DO, SHERRON K 307.40 INSOMNIA 06/13/2009 VIRGEN DO, SHERRON K V04.81 FLU SHOT 06/13/2009 VIRGEN DO, SHERRON K 307.40 INSOMNIA 06/13/2009 VIRGEN DO, SHERRON K V04.81 FLU SHOT 06/13/2009 VIRGEN DO, SHERRON K 307.40 INSOMNIA 06/13/2009 VIRGEN DO, SHERRON K V04.81 FLU SHOT 06/13/2009 VIRGEN DO, SHERRON K 307.40 INSOMNIA 06/13/2009 VIRGEN DO, SHERRON K V04.81 FLU SHOT 06/13/2009 VIRGEN DO, SHERRON K 307.40 INSOMNIA 06/13/2009 VIRGEN DO, SHERRON K V04.81 FLU SHOT 06/13/2009 VIRGEN DO, SHERRON K 307.40 INSOMNIA 06/13/2009 VIRGEN DO, SHERRON K V04.81 FLU SHOT 06/13/2009 VIRGEN DO, SHERRON K 307.40 INSOMNIA 06/13/2009 VIRGEN DO, SHERRON K V04.81 FLU SHOT 06/13/2009 VIRGEN DO, SHERRON K 307.40 INSOMNIA 06/13/2009 VIRGEN DO, SHERRON K V04.81 FLU SHOT 06/13/2009 VIRGEN DO, SHERRON K 307.40 INSOMNIA 06/13/2009 VIRGEN DO, SHERRON K V04.81 FLU SHOT 06/13/2009 VIRGEN DO, SHERRON K 307.40 INSOMNIA 06/13/2009 VIRGEN DO, SHERRON K V04.81 FLU SHOT 06/13/2009 OLIVIA AUGUSTINE M 307.40 INSOMNIA 06/13/2009 OLIVIA AUGUSTINE M V04.81 FLU SHOT 06/13/2009 VIRGEN DO, SHERRON K 307.40 INSOMNIA 06/13/2009 VIRGEN DO, SHERRON K V04.81 FLU SHOT 06/13/2009 VIRGEN DO, SHERRON K 307.40 INSOMNIA 06/13/2009 VIRGEN DO, SHERRON K V04.81 FLU SHOT 06/13/2009 OLIVIA AUGUSTINE M 307.40 INSOMNIA 06/13/2009 OLIVIA AUGUSTINE M V04.81 FLU SHOT 06/13/2009 VIRGEN DO, SHERRON K 307.40 INSOMNIA 06/13/2009 VIRGEN DO, SHERRON K V04.81 FLU SHOT 09/11/2009 728.85 Muscle Spasm 09/11/2009 847.9 Sprain Back 09/11/2009 MICEHLE SUE BRENNEN JAUN 728.85 Muscle Spasm 09/11/2009 MICHELE SUE BRENNEN JAUN 847.9 Sprain Back 09/11/2009 728.85 Muscle Spasm 09/11/2009 847.9 Sprain Back 09/11/2009 MICHELE PROTECTIVE SIGNAL SUPERINTENDENT, BRENNEN JAUN 728.85 Muscle Spasm 09/11/2009 MICHELE PROTECTIVE SIGNAL SUPERINTENDENT, BRENNEN JAUN 847.9 Sprain Back 09/11/2009 MICHELE PROTECTIVE SIGNAL SUPERINTENDENT, BRENNEN JAUN 728.85 Muscle Spasm 09/11/2009 MICHELE PROTECTIVE SIGNAL SUPERINTENDENT, BRENNEN LEPEH 847.9 Sprain Back 09/11/2009 MICHELE PROTECTIVE SIGNAL SUPERINTENDENT, BRENNEN JAUN 728.85 Muscle Spasm 09/11/2009 MICHELE PROTECTIVE SIGNAL SUPERINTENDENTBRENNENH 847.9 Sprain Back 09/11/2009 VIRGEN DO, SHERRON K 728.85 Muscle Spasm 09/11/2009 VIRGEN DO, SHERRON K 847.9 Sprain Back 09/11/2009 MADL PROTECTIVE SIGNAL SUPERINTENDENT, RYAN L 728.85 Muscle Spasm 09/11/2009 MADL PROTECTIVE SIGNAL SUPERINTENDENT, RYAN L 847.9 Sprain Back 09/11/2009 VIRGEN DO, SHERRON K 728.85 Muscle Spasm 09/11/2009 VIRGEN DO, SHERRON K 847.9 Sprain Back 09/11/2009 VIRGEN DO, SHERRON K 728.85 Muscle Spasm 09/11/2009 VIRGEN DO, SHERRON K 847.9 Sprain Back 09/11/2009 VIRGEN DO, SHERRON K 728.85 Muscle Spasm 09/11/2009 VIRGEN DO, SHERRON K 847.9 Sprain Back 09/11/2009 VIRGEN DO, SHERRON K 728.85 Muscle Spasm 09/11/2009 VIRGEN DO, SHERRON K 847.9 Sprain Back 09/11/2009 VIRGEN DO, SHERRON K 728.85 Muscle Spasm 09/11/2009 VIRGEN DO, SHERRON K 847.9 Sprain Back 09/11/2009 VIRGEN DO, SHERRON K 728.85 Muscle Spasm 09/11/2009 VIRGEN DO, SHERRON K 847.9 Sprain Back 09/11/2009 VIRGEN DO, SHERRON K 728.85 Muscle Spasm 09/11/2009 VIRGEN DO, SHERRON K 847.9 Sprain Back 09/11/2009 VIRGEN DO, SHERRON K 728.85 Muscle Spasm 09/11/2009 VIRGEN DO, SHERRON K 847.9 Sprain Back 09/11/2009 VIRGEN DO, SHERRON K 728.85 Muscle Spasm 09/11/2009 VIRGEN DO, SHERRON K 847.9 Sprain Back 09/11/2009 VIRGEN DO, SHERRON K 728.85 Muscle Spasm 09/11/2009 VIRGEN DO, SHERRON K 847.9 Sprain Back 09/11/2009 OLIVIA AUGUSTINE 728.85 Muscle Spasm 09/11/2009 OLIVIA AUGUSTINE 847.9 Sprain Back 09/11/2009 VIRGEN DO, SHERRON K 728.85 Muscle Spasm 09/11/2009 VIRGEN DO, SHERRON K 847.9 Sprain Back 09/11/2009 VIRGEN DO, SHERRON K 728.85 Muscle Spasm 09/11/2009 VIRGEN DO, SHERRON K 847.9 Sprain Back 09/11/2009 VINICIO AUGUSTINEISTIN M 728.85 Muscle Spasm 09/11/2009 BEVERLEY STAFF RESEARCH ASSOCIATE, OLIVIA M 847.9 Sprain Back 09/11/2009 VIRGEN DO, SHERRON K 728.85 Muscle Spasm 09/11/2009 VIRGEN DO, SHERRON K 847.9 Sprain Back 10/23/2009 NODX No Diagnosis 10/23/2009 MICHELE PROTECTIVE SIGNAL SUPERINTENDENT, BRENNEN ZAMORANO NODX No Diagnosis 10/23/2009 NODX No Diagnosis 10/23/2009 MICHELE PROTECTIVE SIGNAL SUPERINTENDENT, BRENNEN ZAMORANO NODX No Diagnosis 10/23/2009 MICHELE PROTECTIVE SIGNAL SUPERINTENDENT, BRENNEN ZAMORANO NODX No Diagnosis 10/23/2009 MICHELE PROTECTIVE SIGNAL SUPERINTENDENT, BRENNEN ZAMORANO NODX No Diagnosis 10/23/2009 VIRGEN DO, SHERRON K NODX No Diagnosis 10/23/2009 RAFAEL ROGERS RYAN Vanessa NODX No Diagnosis 10/23/2009 VIRGEN DO, SHERRON K NODX No Diagnosis 10/23/2009 VIRGEN DO, SHERRON K NODX No Diagnosis 10/23/2009 VIRGEN DO, SHERRON K NODX No Diagnosis 10/23/2009 VIRGEN DO, SHERRON K NODX No Diagnosis 10/23/2009 VIRGEN DO, SHERRON K NODX No Diagnosis 10/23/2009 VIRGEN DO, SHERRON K NODX No Diagnosis 10/23/2009 VIRGEN DO, SHERRON K NODX No Diagnosis 10/23/2009 VIRGEN DO, SHERRON K NODX No Diagnosis 10/23/2009 VIRGEN DO, SHERRON K NODX No Diagnosis 10/23/2009 VIRGEN DO, SHERRON K NODX No Diagnosis 10/23/2009 BEVERLEY DIAZ OLIVIA M NODX No Diagnosis 10/23/2009 VIRGEN DO, SHERRON K NODX No Diagnosis 10/23/2009 VIRGEN DO, SHERRON K NODX No Diagnosis 10/23/2009 BEVERLEY STAFF RESEARCH ASSOCIATE, OLIVIA M NODX No Diagnosis 10/23/2009 VIRGEN DO, SHERRON K NODX No Diagnosis 11/06/2009 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 11/06/2009 RYNE ROGERS BRENNEN ZAMORANO 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 11/06/2009 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 11/06/2009 RYNE ROGERS BRENNEN LEPEH 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 11/06/2009 MICHELE SUE BRENNEN ZAMORANO 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 11/06/2009 MICHELE PROTECTIVE SIGNAL SUPERINTENDENT, BRENNEN ZAMORANO 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 11/06/2009 VIRGEN DO, SHERRON K 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 11/06/2009 MADL PROTECTIVE SIGNAL SUPERINTENDENT, RYAN L 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 11/06/2009 VIRGEN DO, SHERRON K 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 11/06/2009 VIRGEN DO, SHERRON K 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 11/06/2009 VIRGEN DO, SHERRON K 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 11/06/2009 VIRGEN DO, SHERRON K 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 11/06/2009 VIRGEN DO, SHERRON K 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 11/06/2009 VIRGEN DO, SHERRON K 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 11/06/2009 VIRGEN DO, SHERRON K 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00 ANXIETY UNSPEC 02/19/2010 VIRGEN DO, SHERRON K 300.00 ANXIETY UNSPEC 02/19/2010 VIRGEN DO, SHERRON K 300.00 ANXIETY UNSPEC 02/19/2010 VIRGEN DO, SHERRON K 300.00 ANXIETY UNSPEC 02/19/2010 VIRGEN DO, SHERRON K 300.00 ANXIETY UNSPEC 02/19/2010 VIRGEN DO, SHERRON K 300.00 ANXIETY UNSPEC 02/19/2010 VIRGEN DO, SHERRON K 300.00 ANXIETY UNSPEC 02/19/2010 VIRGEN DO, SHERRON K 300.00 ANXIETY UNSPEC 02/19/2010 VIRGEN DO, SHERRON K 300.00 ANXIETY UNSPEC 02/19/2010 VIRGEN DO, SHERRON K 300.00 ANXIETY UNSPEC 02/19/2010 VIRGEN DO, SHERRON K 300.00 ANXIETY UNSPEC 02/19/2010 OLIVIA AUGUSTINE M 300.00 ANXIETY UNSPEC 02/19/2010 VIRGEN DO, SHERRON K 300.00 ANXIETY UNSPEC 02/19/2010 VIRGEN DO, SHERRON K 300.00 ANXIETY UNSPEC 02/19/2010 OLIVIA AUGUSTINE M 300.00 ANXIETY UNSPEC 02/19/2010 VIRGEN DO, SHERRON K 300.00 ANXIETY UNSPEC 05/09/2010 719.40 PAIN IN JOINT, SITE UNSPECIFIED 05/09/2010 BRENNEN MICHELE APRN 719.40 PAIN IN JOINT, SITE UNSPECIFIED 05/09/2010 719.40 PAIN IN JOINT, SITE UNSPECIFIED 05/09/2010 BRENNEN MICHELE APRN 719.40 PAIN IN JOINT, SITE UNSPECIFIED 05/09/2010 BRENNEN MICHELE APRN 719.40 PAIN IN JOINT, SITE UNSPECIFIED 05/09/2010 BRENNEN MICHELE APRN 719.40 PAIN IN JOINT, SITE UNSPECIFIED 05/09/2010 VIRGEN DO, SHERRON K 719.40 PAIN IN JOINT, SITE UNSPECIFIED 05/09/2010 RYAN HALL APRN 719.40 PAIN IN JOINT, SITE UNSPECIFIED 05/09/2010 VIRGEN DO, SHERRON K 719.40 PAIN IN JOINT, SITE UNSPECIFIED 05/09/2010 VIRGEN DO, SHERRON K 719.40 PAIN IN JOINT, SITE UNSPECIFIED 05/09/2010 VIRGEN DO, SHERRON K 719.40 PAIN IN JOINT, SITE UNSPECIFIED 05/09/2010 VIRGEN DO, SHERRON K 719.40 PAIN IN JOINT, SITE UNSPECIFIED 05/09/2010 VIRGEN DO, SHERRON K 719.40 PAIN IN JOINT, SITE UNSPECIFIED 05/09/2010 VIRGEN DO, SHERRON K 719.40 PAIN IN JOINT, SITE UNSPECIFIED 05/09/2010 VIRGEN DO, SHERRON K 719.40 PAIN IN JOINT, SITE UNSPECIFIED 05/09/2010 VIRGEN DO, SHERRON K 719.40 PAIN IN JOINT, SITE UNSPECIFIED 05/09/2010 VIRGEN DO, SHERRON K 719.40 PAIN IN JOINT, SITE UNSPECIFIED 05/09/2010 VIRGEN DO, SHERRON K 719.40 PAIN IN JOINT, SITE UNSPECIFIED 05/09/2010 BEVERLEY DIAZ, OLIVIA M 719.40 PAIN IN JOINT, SITE UNSPECIFIED 05/09/2010 VIRGEN DO, SHERRON K 719.40 PAIN IN JOINT, SITE UNSPECIFIED 05/09/2010 VIRGEN DO, SHERRON K 719.40 PAIN IN JOINT, SITE UNSPECIFIED 05/09/2010 OLIVIA AUGUSTINE 719.40 PAIN IN JOINT, SITE UNSPECIFIED 05/09/2010 VIRGEN DO, SHERRON K 719.40 PAIN IN JOINT, SITE UNSPECIFIED 06/13/2010 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 06/13/2010 BRENNEN MICHELE APRN 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 06/13/2010 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 06/13/2010 BRENNEN MICHELE APRN 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 06/13/2010 BRENNEN MICHELE APRN 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 06/13/2010 BRENNEN MICHELE APRN 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 06/13/2010 VIRGEN DO, SHERRON K 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 06/13/2010 RYAN HALL APRN 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 06/13/2010 VIRGEN DO, SHERRON K 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 06/13/2010 VIRGEN DO, SHERRON K 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 06/13/2010 VIRGEN DO, SHERRON K 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 06/13/2010 VIRGEN DO, SHERRON K 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 06/13/2010 VIRGEN DO, SHERRON K 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 06/13/2010 VIRGEN DO, SHERRON K 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 06/13/2010 VIRGEN DO, SHERRON K 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 06/13/2010 VIRGEN DO, SHERRON K 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 06/13/2010 VIRGEN DO, SHERRON K 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 06/13/2010 VIRGEN DO, SHERRON K 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 06/13/2010 OLIVIA AUGUSTINE 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 06/13/2010 VIRGEN DO, SHERRON K 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 06/13/2010 VIRGEN DO SHERRON K 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 06/13/2010 OLIVIA AUGUSTINE 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 06/13/2010 VIRGEN DO, SHERRON K 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 07/22/2010 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 07/22/2010 300.02 AN GEN ANXIETY 07/22/2010 301.9 PD PERS DIS NOS 07/22/2010 309.81 AN PTSD 07/22/2010 BRENNEN MICHELE APRN 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 07/22/2010 BRENNEN MICHELE APRN 300.02 AN GEN ANXIETY 07/22/2010 BRENNEN MICHELE APRN 301.9 PD PERS DIS NOS 07/22/2010 BRENNEN MICHELE APRN 309.81 AN PTSD 07/22/2010 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 07/22/2010 300.02 AN GEN ANXIETY 07/22/2010 301.9 PD PERS DIS NOS 07/22/2010 309.81 AN PTSD 07/22/2010 BRENNEN MICHELE APRN 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 07/22/2010 BRENNEN MICHELE APRN 300.02 AN GEN ANXIETY 07/22/2010 BRENNEN MICHELE APRN 301.9 PD PERS DIS NOS 07/22/2010 MICHELE PROTECTIVE SIGNAL SUPERINTENDENTBRENNEN De La Cruz 309.81 AN PTSD 07/22/2010 MICHELE PROTECTIVE SIGNAL SUPERINTENDENTBRENNEN De La Cruz 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 07/22/2010 MICHELE BRENNEN ROGERS 300.02 AN GEN ANXIETY 07/22/2010 MICHELE PROTECTIVE SIGNAL SUPERINTENDENTBRENNEN De La Cruz 301.9 PD PERS DIS NOS 07/22/2010 MICHELE PROTECTIVE SIGNAL SUPERINTENDENTBRENNEN 309.81 AN PTSD 07/22/2010 MICHELE PROTECTIVE SIGNAL SUPERINTENDENT, BRENNEN ZAMORANO 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 07/22/2010 MICHELE PROTECTIVE SIGNAL SUPERINTENDENTBRENNEN De La Cruz 300.02 AN GEN ANXIETY 07/22/2010 MICHELE PROTECTIVE SIGNAL SUPERINTENDENTBRENNEN De La Cruz 301.9 PD PERS DIS NOS 07/22/2010 MICHELE BRENNEN ROGERS 309.81 AN PTSD 07/22/2010 VIRGEN DO, SHERRON K 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 07/22/2010 VIRGEN DO, SHERRON K 300.02 AN GEN ANXIETY 07/22/2010 VIRGEN DO, SHERRON K 301.9 PD PERS DIS NOS 07/22/2010 VIRGEN DO, SHERRON K 309.81 AN PTSD 07/22/2010 MADL PROTECTIVE SIGNAL SUPERINTENDENT, RYAN L 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 07/22/2010 MADL PROTECTIVE SIGNAL SUPERINTENDENT, RYAN L 300.02 AN GEN ANXIETY 07/22/2010 MADL PROTECTIVE SIGNAL SUPERINTENDENT, RYAN L 301.9 PD PERS DIS NOS 07/22/2010 MADL PROTECTIVE SIGNAL SUPERINTENDENT, RYAN L 309.81 AN PTSD 07/22/2010 VIRGEN DO, SHERRON K 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 07/22/2010 VIRGEN DO, SHERRON K 300.02 AN GEN ANXIETY 07/22/2010 VIRGEN DO, SHERRON K 301.9 PD PERS DIS NOS 07/22/2010 VIRGEN DO, SHERRON K 309.81 AN PTSD 07/22/2010 VIRGEN DO, SHERRON K 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 07/22/2010 VIRGEN DO, SHERRON K 300.02 AN GEN ANXIETY 07/22/2010 VIRGEN DO, SHERRON K 301.9 PD PERS DIS NOS 07/22/2010 VIRGEN DO, SHERRON K 309.81 AN PTSD 07/22/2010 VIRGEN DO, SHERRON K 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 07/22/2010 VIRGEN DO, SHERRON K 300.02 AN GEN ANXIETY 07/22/2010 VIRGEN DO, SHERRON K 301.9 PD PERS DIS NOS 07/22/2010 VIRGEN DO, SHERRON K 309.81 AN PTSD 07/22/2010 VIRGEN DO, SHERRON K 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 07/22/2010 VIRGEN DO, SHERRON K 300.02 AN GEN ANXIETY 07/22/2010 VIRGEN DO, SHERRON K 301.9 PD PERS DIS NOS 07/22/2010 VIRGEN DO, SHERRON K 309.81 AN PTSD 07/22/2010 VIRGEN DO, SHERRON K 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 07/22/2010 VIRGEN DO, SHERRON K 300.02 AN GEN ANXIETY 07/22/2010 VIRGEN DO, SHERRON K 301.9 PD PERS DIS NOS 07/22/2010 VIRGEN DO, SHERRON K 309.81 AN PTSD 07/22/2010 VIRGEN DO, SHERRON K 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 07/22/2010 VIRGEN DO, SHERRON K 300.02 AN GEN ANXIETY 07/22/2010 VIRGEN DO, SHERRON K 301.9 PD PERS DIS NOS 07/22/2010 VIRGEN DO, SHERRON K 309.81 AN PTSD 07/22/2010 VIRGEN DO, SHERRON K 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 07/22/2010 VIRGEN DO, SHERRON K 300.02 AN GEN ANXIETY 07/22/2010 VIRGEN DO, SHERRON K 301.9 PD PERS DIS NOS 07/22/2010 VIRGEN DO, SHERRON K 309.81 AN PTSD 07/22/2010 VIRGEN DO, SHERRON K 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 07/22/2010 VIRGEN DO, SHERRON K 300.02 AN GEN ANXIETY 07/22/2010 VIRGEN DO, SHERRON K 301.9 PD PERS DIS NOS 07/22/2010 VIRGEN DO, SHERRON K 309.81 AN PTSD 07/22/2010 VIRGEN DO, SHERRON K 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 07/22/2010 VIRGEN DO, SHERRON K 300.02 AN GEN ANXIETY 07/22/2010 VIRGEN DO, SHERRON K 301.9 PD PERS DIS NOS 07/22/2010 VIRGEN DO, SHERRON K 309.81 AN PTSD 07/22/2010 VIRGEN DO, SHERRON K 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 07/22/2010 VIRGEN DO, SHERRON K 300.02 AN GEN ANXIETY 07/22/2010 VIRGEN DO, SHERRON K 301.9 PD PERS DIS NOS 07/22/2010 VIRGEN DO, SHERRON K 309.81 AN PTSD 07/22/2010 BEVERLEY STAFF RESEARCH ASSOCIATE, OLIVIA M 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 07/22/2010 BEVERLEY STAFF RESEARCH ASSOCIATE, OLIVIA M 300.02 AN GEN ANXIETY 07/22/2010 BEVERLEY STAFF RESEARCH ASSOCIATE, OLIVIA M 301.9 PD PERS DIS NOS 07/22/2010 BEVERLEY STAFF RESEARCH ASSOCIATE, OLIVIA M 309.81 AN PTSD 07/22/2010 VIRGEN DO, SHERRON K 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 07/22/2010 VIRGEN DO, SHERRON K 300.02 AN GEN ANXIETY 07/22/2010 VIRGEN DO, SHERRON K 301.9 PD PERS DIS NOS 07/22/2010 VIRGEN DO, SHERRON K 309.81 AN PTSD 07/22/2010 VIRGEN DO, SHERRON K 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 07/22/2010 VIRGEN DO, SHERRON K 300.02 AN GEN ANXIETY 07/22/2010 VIRGEN DO, SHERRON K 301.9 PD PERS DIS NOS 07/22/2010 VIRGEN DO, SHERRON K 309.81 AN PTSD 07/22/2010 BEVERLEY STAFF RESEARCH ASSOCIATE, OLIVIA M 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 07/22/2010 BEVERLEY STAFF RESEARCH ASSOCIATE, OLIVIA M 300.02 AN GEN ANXIETY 07/22/2010 BEVERLEY STAFF RESEARCH ASSOCIATE, OLIVIA M 301.9 PD PERS DIS NOS 07/22/2010 BEVERLEY STAFF RESEARCH ASSOCIATE, OLIVIA M 309.81 AN PTSD 07/22/2010 VIRGEN DO, SHERRON K 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 07/22/2010 VIRGEN DO, SHERRON K 300.02 AN GEN ANXIETY 07/22/2010 VIRGEN DO, SHERRON K 301.9 PD PERS DIS NOS 07/22/2010 VIRGEN DO, SHERRON K 309.81 AN PTSD 08/08/2010 564.1 Irritable Bowel Syndrome 08/08/2010 BRENNEN MICHELE APRN 564.1 Irritable Bowel Syndrome 08/08/2010 564.1 Irritable Bowel Syndrome 08/08/2010 BRENNEN MICHELE APRN 564.1 Irritable Bowel Syndrome 08/08/2010 BRENNEN MICHELE APRN 564.1 Irritable Bowel Syndrome 08/08/2010 RYNE MONTES DE OCANBRENNEN 564.1 Irritable Bowel Syndrome 08/08/2010 VIRGEN DO, SHERRON K 564.1 Irritable Bowel Syndrome 08/08/2010 RAFAEL PROTECTIVE SIGNAL SUPERINTENDENT, RYAN L 564.1 Irritable Bowel Syndrome 08/08/2010 VIRGEN DO, SHERRON K 564.1 Irritable Bowel Syndrome 08/08/2010 VIRGEN DO, SHERRON K 564.1 Irritable Bowel Syndrome 08/08/2010 VIRGEN DO, SHERRON K 564.1 Irritable Bowel Syndrome 08/08/2010 VIRGEN DO, SHERRON K 564.1 Irritable Bowel Syndrome 08/08/2010 VIRGEN DO, SHERRON K 564.1 Irritable Bowel Syndrome 08/08/2010 VIRGEN DO, SHERRON K 564.1 Irritable Bowel Syndrome 08/08/2010 VIRGEN DO, SHERRON K 564.1 Irritable Bowel Syndrome 08/08/2010 VIRGEN DO, SHERRON K 564.1 Irritable Bowel Syndrome 08/08/2010 VIRGEN DO, SHERRON K 564.1 Irritable Bowel Syndrome 08/08/2010 VIRGEN DO, SHERRON K 564.1 Irritable Bowel Syndrome 08/08/2010 OLIVIA AUGUSTINE 564.1 Irritable Bowel Syndrome 08/08/2010 VIRGEN DO, SHERRON K 564.1 Irritable Bowel Syndrome 08/08/2010 VIRGEN DO, SHERRON K 564.1 Irritable Bowel Syndrome 08/08/2010 OLIVIA AUGUSTINE 564.1 Irritable Bowel Syndrome 08/08/2010 VIRGEN DO, SHERRON K 564.1 Irritable Bowel Syndrome 10/29/2010 Ot 782.0 10/29/2010 Ot 959.6 10/29/2010 Ot E000.8 10/29/2010 Ot E849.0 10/29/2010 Ot E884.9 12/17/2010 562.10 Diverticulosis Of Colon (without Hemorrhage) 12/17/2010 709.9 Unspecified Disorder Of Skin And Subcutaneous Tissue 12/17/2010 RYNE ROGERS BRENNEN ZAMORANO 562.10 Diverticulosis Of Colon (without Hemorrhage) 12/17/2010 MICHELE PROTECTIVE SIGNAL SUPERINTENDENTBRENNENH 709.9 Unspecified Disorder Of Skin And Subcutaneous Tissue 12/17/2010 562.10 Diverticulosis Of Colon (without Hemorrhage) 12/17/2010 709.9 Unspecified Disorder Of Skin And Subcutaneous Tissue 12/17/2010 MICHELE PROTECTIVE SIGNAL SUPERINTENDENTBRENNEN 562.10 Diverticulosis Of Colon (without Hemorrhage) 12/17/2010 MICHELE PROTECTIVE SIGNAL SUPERINTENDENTBRENNEN 709.9 Unspecified Disorder Of Skin And Subcutaneous Tissue 12/17/2010 MICHELE PROTECTIVE SIGNAL SUPERINTENDENT, BRENNEN LEPEH 562.10 Diverticulosis Of Colon (without Hemorrhage) 12/17/2010 MICHELE PROTECTIVE SIGNAL SUPERINTENDENT, BRENNEN LEPEH 709.9 Unspecified Disorder Of Skin And Subcutaneous Tissue 12/17/2010 MICHELE PROTECTIVE SIGNAL SUPERINTENDENT, BRENNEN ZAMORANO 562.10 Diverticulosis Of Colon (without Hemorrhage) 12/17/2010 MICHELE PROTECTIVE SIGNAL SUPERINTENDENTBRENNEN 709.9 Unspecified Disorder Of Skin And Subcutaneous Tissue 12/17/2010 VIRGEN DO SHERRON K 562.10 Diverticulosis Of Colon (without Hemorrhage) 12/17/2010 VIRGEN DO SHERRON K 709.9 Unspecified Disorder Of Skin And Subcutaneous Tissue 12/17/2010 MADL PROTECTIVE SIGNAL SUPERINTENDENT, RYAN L 562.10 Diverticulosis Of Colon (without Hemorrhage) 12/17/2010 MADL PROTECTIVE SIGNAL SUPERINTENDENT, RYAN L 709.9 Unspecified Disorder Of Skin And Subcutaneous Tissue 12/17/2010 VIRGEN DO, SHERRON K 562.10 Diverticulosis Of Colon (without Hemorrhage) 12/17/2010 VIRGEN DO SHERRON K 709.9 Unspecified Disorder Of Skin And Subcutaneous Tissue 12/17/2010 VIRGEN DO, SHERRON K 562.10 Diverticulosis Of Colon (without Hemorrhage) 12/17/2010 VIRGEN DO, SHERRON K 709.9 Unspecified Disorder Of Skin And Subcutaneous Tissue 12/17/2010 VIRGEN DO, SHERRON K 562.10 Diverticulosis Of Colon (without Hemorrhage) 12/17/2010 VIRGEN DO, SHERRON K 709.9 Unspecified Disorder Of Skin And Subcutaneous Tissue 12/17/2010 VIRGEN DO, SHERRON K 562.10 Diverticulosis Of Colon (without Hemorrhage) 12/17/2010 VIRGEN DO SHERRON K 709.9 Unspecified Disorder Of Skin And Subcutaneous Tissue 12/17/2010 VIRGEN DO, SHERRON K 562.10 Diverticulosis Of Colon (without Hemorrhage) 12/17/2010 VIRGEN DO, SHERRON K 709.9 Unspecified Disorder Of Skin And Subcutaneous Tissue 12/17/2010 VIRGEN DO, SHERRON K 562.10 Diverticulosis Of Colon (without Hemorrhage) 12/17/2010 VIRGEN DO, SHERRON K 709.9 Unspecified Disorder Of Skin And Subcutaneous Tissue 12/17/2010 VIRGEN DO, SHERRON K 562.10 Diverticulosis Of Colon (without Hemorrhage) 12/17/2010 VIRGEN DO, SHERRON K 709.9 Unspecified Disorder Of Skin And Subcutaneous Tissue 12/17/2010 VIRGEN DO, SHERRON K 562.10 Diverticulosis Of Colon (without Hemorrhage) 12/17/2010 VIRGEN DO, SHERRON K 709.9 Unspecified Disorder Of Skin And Subcutaneous Tissue 12/17/2010 VIRGEN DO, SHERRON K 562.10 Diverticulosis Of Colon (without Hemorrhage) 12/17/2010 VIRGEN DO, SHERRON K 709.9 Unspecified Disorder Of Skin And Subcutaneous Tissue 12/17/2010 VIRGEN DO, SHERRON K 562.10 Diverticulosis Of Colon (without Hemorrhage) 12/17/2010 VIRGEN DO, SHERRON K 709.9 Unspecified Disorder Of Skin And Subcutaneous Tissue 12/17/2010 OLIVIA AUGUSTINE M 562.10 Diverticulosis Of Colon (without Hemorrhage) 12/17/2010 OLIVIA AUGUSTINE M 709.9 Unspecified Disorder Of Skin And Subcutaneous Tissue 12/17/2010 VIRGEN DO, SHERRON K 562.10 Diverticulosis Of Colon (without Hemorrhage) 12/17/2010 VIRGEN DO, SHERRON K 709.9 Unspecified Disorder Of Skin And Subcutaneous Tissue 12/17/2010 VIRGEN DO, SHERRON K 562.10 Diverticulosis Of Colon (without Hemorrhage) 12/17/2010 VIRGEN DO, SHERRON K 709.9 Unspecified Disorder Of Skin And Subcutaneous Tissue 12/17/2010 OLIVIA AUGUSTINE M 562.10 Diverticulosis Of Colon (without Hemorrhage) 12/17/2010 OLIVIA AUGUSTINE M 709.9 Unspecified Disorder Of Skin And Subcutaneous Tissue 12/17/2010 VIRGEN DO, SHERRON K 562.10 Diverticulosis Of Colon (without Hemorrhage) 12/17/2010 VIRGEN DO, SHERRON K 709.9 Unspecified Disorder Of Skin And Subcutaneous Tissue 02/01/2011 Ot 564.00 02/01/2011 Ot 789.00 02/19/2011 Ot 041.12 02/19/2011 Ot 452 02/19/2011 Ot 530.81 02/19/2011 Ot 558.9 02/19/2011 Ot 562.10 02/19/2011 Ot 564.00 02/19/2011 Ot 575.6 02/19/2011 Ot 682.2 02/21/2011 Ot V58.31 02/23/2011 452 Portal Vein Thrombosis 02/23/2011 682.9 Cellulitis And Abscess Of Unspecified Sites 02/23/2011 MICHELE PROTECTIVE SIGNAL SUPERINTENDENT, BRENNEN ZAMORANO 452 Portal Vein Thrombosis 02/23/2011 MICHELE PROTECTIVE SIGNAL SUPERINTENDENT, BRENNEN LEPEH 682.9 Cellulitis And Abscess Of Unspecified Sites 02/23/2011 452 Portal Vein Thrombosis 02/23/2011 682.9 Cellulitis And Abscess Of Unspecified Sites 02/23/2011 MICHELE PROTECTIVE SIGNAL SUPERINTENDENT, BRENNEN LEPEH 452 Portal Vein Thrombosis 02/23/2011 MICHELE PROTECTIVE SIGNAL SUPERINTENDENT, BRENNEN LEPEH 682.9 Cellulitis And Abscess Of Unspecified Sites 02/23/2011 MICHELE PROTECTIVE SIGNAL SUPERINTENDENT, BRENNEN ZAMORANO 452 Portal Vein Thrombosis 02/23/2011 MICHELE PROTECTIVE SIGNAL SUPERINTENDENT, BRENNEN LEPEH 682.9 Cellulitis And Abscess Of Unspecified Sites 02/23/2011 MICHELE PROTECTIVE SIGNAL SUPERINTENDENT, BRENNEN ZAMORANO 452 Portal Vein Thrombosis 02/23/2011 MICHELE PROTECTIVE SIGNAL SUPERINTENDENT, BRENNEN LEPEH 682.9 Cellulitis And Abscess Of Unspecified Sites 02/23/2011 VIRGEN DO SHERRON K 452 Portal Vein Thrombosis 02/23/2011 VIRGEN DO SHERRON K 682.9 Cellulitis And Abscess Of Unspecified Sites 02/23/2011 MADL PROTECTIVE SIGNAL SUPERINTENDENT, RYAN L 452 Portal Vein Thrombosis 02/23/2011 MADL PROTECTIVE SIGNAL SUPERINTENDENT, RYAN L 682.9 Cellulitis And Abscess Of Unspecified Sites 02/23/2011 VIRGEN DO SHERRON K 452 Portal Vein Thrombosis 02/23/2011 VIRGEN DO SHERRON K 682.9 Cellulitis And Abscess Of Unspecified Sites 02/23/2011 VIRGEN DO SHERRON K 452 Portal Vein Thrombosis 02/23/2011 VIRGEN DO, SHERRON K 682.9 Cellulitis And Abscess Of Unspecified Sites 02/23/2011 VIRGEN DO, SHERRON K 452 Portal Vein Thrombosis 02/23/2011 VIRGEN DO, SHERRON K 682.9 Cellulitis And Abscess Of Unspecified Sites 02/23/2011 VIRGEN DO, SHERRON K 452 Portal Vein Thrombosis 02/23/2011 VIRGEN DO, SHERRON K 682.9 Cellulitis And Abscess Of Unspecified Sites 02/23/2011 VIRGEN DO, SHERRON K 452 Portal Vein Thrombosis 02/23/2011 VIRGEN DO, SHERRON K 682.9 Cellulitis And Abscess Of Unspecified Sites 02/23/2011 VIRGEN DO, SHERRON K 452 Portal Vein Thrombosis 02/23/2011 VIRGEN DO, SHERRON K 682.9 Cellulitis And Abscess Of Unspecified Sites 02/23/2011 VIRGEN DO, SHERRON K 452 Portal Vein Thrombosis 02/23/2011 VIRGEN DO, SHERRON K 682.9 Cellulitis And Abscess Of Unspecified Sites 02/23/2011 VIRGEN DO, SHERRON K 452 Portal Vein Thrombosis 02/23/2011 VIRGEN DO, SHERRON K 682.9 Cellulitis And Abscess Of Unspecified Sites 02/23/2011 VIRGEN DO, SHERRON K 452 Portal Vein Thrombosis 02/23/2011 VIRGEN DO, SHERRON K 682.9 Cellulitis And Abscess Of Unspecified Sites 02/23/2011 VIRGEN DO, SHERRON K 452 Portal Vein Thrombosis 02/23/2011 VIRGEN DO, SHERRON K 682.9 Cellulitis And Abscess Of Unspecified Sites 02/23/2011 OLIVIA AUGUSTINE M 452 Portal Vein Thrombosis 02/23/2011 OLIVIA AUGUSTINE M 682.9 Cellulitis And Abscess Of Unspecified Sites 02/23/2011 VIRGEN DO, SHERRON K 452 Portal Vein Thrombosis 02/23/2011 VIRGEN DO, SHERRON K 682.9 Cellulitis And Abscess Of Unspecified Sites 02/23/2011 VIRGEN DO, SHERRON K 452 Portal Vein Thrombosis 02/23/2011 VIRGEN DO, SHERRON K 682.9 Cellulitis And Abscess Of Unspecified Sites 02/23/2011 OLIVIA AUGUSTINE M 452 Portal Vein Thrombosis 02/23/2011 OLIVIA AUGUSTINE M 682.9 Cellulitis And Abscess Of Unspecified Sites 02/23/2011 VIRGEN DO, SHERRON K 452 Portal Vein Thrombosis 02/23/2011 PARAM DO SHERRON K 682.9 Cellulitis And Abscess Of Unspecified Sites 02/23/2011 Ot 682.9 02/23/2011 Ot V58.61 02/23/2011 Ot 300.00 02/23/2011 Ot 786.50 02/24/2011 780.50 SLEEP DISTURBANCE, UNSPECIFIED 02/24/2011 V58.30 Encounter For Change Or Removal Of Nonsurgical Wound Dressing 02/24/2011 MICHELE PROTECTIVE SIGNAL SUPERINTENDENT, BRENNEN ZAMORANO 780.50 SLEEP DISTURBANCE, UNSPECIFIED 02/24/2011 MICHELE PROTECTIVE SIGNAL SUPERINTENDENT BRENNEN ZAMORANO V58.30 Encounter For Change Or Removal Of Nonsurgical Wound Dressing 02/24/2011 780.50 SLEEP DISTURBANCE, UNSPECIFIED 02/24/2011 V58.30 Encounter For Change Or Removal Of Nonsurgical Wound Dressing 02/24/2011 MICHELE PROTECTIVE SIGNAL SUPERINTENDENT, BRENNEN ZAMORANO 780.50 SLEEP DISTURBANCE, UNSPECIFIED 02/24/2011 MICHELE PROTECTIVE SIGNAL SUPERINTENDENT, BRENNEN ZAMORANO V58.30 Encounter For Change Or Removal Of Nonsurgical Wound Dressing 02/24/2011 MICHELE PROTECTIVE SIGNAL SUPERINTENDENT, BRENNEN ZAMORANO 780.50 SLEEP DISTURBANCE, UNSPECIFIED 02/24/2011 MICHELE PROTECTIVE SIGNAL SUPERINTENDENT, BRENNEN ZAMORANO V58.30 Encounter For Change Or Removal Of Nonsurgical Wound Dressing 02/24/2011 MICHELE PROTECTIVE SIGNAL SUPERINTENDENT, BRENNEN ZAMORANO 780.50 SLEEP DISTURBANCE, UNSPECIFIED 02/24/2011 MICHELE PROTECTIVE SIGNAL SUPERINTENDENT, BRENNEN ZMAORANO V58.30 Encounter For Change Or Removal Of Nonsurgical Wound Dressing 02/24/2011 VIRGEN DO SHERRON K 780.50 SLEEP DISTURBANCE, UNSPECIFIED 02/24/2011 VIRGEN DO SHERRON K V58.30 Encounter For Change Or Removal Of Nonsurgical Wound Dressing 02/24/2011 MADL PROTECTIVE SIGNAL SUPERINTENDENT, RYAN L 780.50 SLEEP DISTURBANCE, UNSPECIFIED 02/24/2011 MADL PROTECTIVE SIGNAL SUPERINTENDENT, RYAN L V58.30 Encounter For Change Or Removal Of Nonsurgical Wound Dressing 02/24/2011 VIRGEN DO SHERRON K 780.50 SLEEP DISTURBANCE, UNSPECIFIED 02/24/2011 VIRGEN DO, SHERRON K V58.30 Encounter For Change Or Removal Of Nonsurgical Wound Dressing 02/24/2011 VIRGEN DO, SHERRON K 780.50 SLEEP DISTURBANCE, UNSPECIFIED 02/24/2011 VIRGEN DO SHERRON K V58.30 Encounter For Change Or Removal Of Nonsurgical Wound Dressing 02/24/2011 VIRGEN DO, SHERRON K 780.50 SLEEP DISTURBANCE, UNSPECIFIED 02/24/2011 VIRGEN DO, SHERRON K V58.30 Encounter For Change Or Removal Of Nonsurgical Wound Dressing 02/24/2011 VIRGEN DO, SHERRON K 780.50 SLEEP DISTURBANCE, UNSPECIFIED 02/24/2011 VIRGEN DO, SHERRON K V58.30 Encounter For Change Or Removal Of Nonsurgical Wound Dressing 02/24/2011 VIRGEN DO, SHERRON K 780.50 SLEEP DISTURBANCE, UNSPECIFIED 02/24/2011 VIRGEN DO, SHERRON K V58.30 Encounter For Change Or Removal Of Nonsurgical Wound Dressing 02/24/2011 VIRGEN DO, SHERRON K 780.50 SLEEP DISTURBANCE, UNSPECIFIED 02/24/2011 VIRGEN DO, SHERRON K V58.30 Encounter For Change Or Removal Of Nonsurgical Wound Dressing 02/24/2011 VIRGEN DO, SHERRON K 780.50 SLEEP DISTURBANCE, UNSPECIFIED 02/24/2011 VIRGEN DO, SHERRON K V58.30 Encounter For Change Or Removal Of Nonsurgical Wound Dressing 02/24/2011 VIRGEN DO, SHERRON K 780.50 SLEEP DISTURBANCE, UNSPECIFIED 02/24/2011 VIRGEN DO, SHERRON K V58.30 Encounter For Change Or Removal Of Nonsurgical Wound Dressing 02/24/2011 VIRGEN DO, SHERRON K 780.50 SLEEP DISTURBANCE, UNSPECIFIED 02/24/2011 VIRGEN DO, SHERRON K V58.30 Encounter For Change Or Removal Of Nonsurgical Wound Dressing 02/24/2011 VIRGEN DO, SHERRON K 780.50 SLEEP DISTURBANCE, UNSPECIFIED 02/24/2011 VIRGEN DO, SHERRON K V58.30 Encounter For Change Or Removal Of Nonsurgical Wound Dressing 02/24/2011 OLIVIA AUGUSTINE M 780.50 SLEEP DISTURBANCE, UNSPECIFIED 02/24/2011 OLIVIA AUGUSTINE M V58.30 Encounter For Change Or Removal Of Nonsurgical Wound Dressing 02/24/2011 VIRGEN DO, SHERRON K 780.50 SLEEP DISTURBANCE, UNSPECIFIED 02/24/2011 VIRGEN DO, SHERRON K V58.30 Encounter For Change Or Removal Of Nonsurgical Wound Dressing 02/24/2011 VIRGEN DO, SHERRON K 780.50 SLEEP DISTURBANCE, UNSPECIFIED 02/24/2011 VIRGEN DO, SHERRON K V58.30 Encounter For Change Or Removal Of Nonsurgical Wound Dressing 02/24/2011 OLIVIA AUGUSTINE 780.50 SLEEP DISTURBANCE, UNSPECIFIED 02/24/2011 OLIVIA AUGUSTINE V58.30 Encounter For Change Or Removal Of Nonsurgical Wound Dressing 02/24/2011 VIRGEN DO, SHERRON K 780.50 SLEEP DISTURBANCE, UNSPECIFIED 02/24/2011 VIRGEN DO, SHERRON K V58.30 Encounter For Change Or Removal Of Nonsurgical Wound Dressing 03/02/2011 789.05 Abdominal Pain Periumbilic 03/02/2011 MICHELE PROTECTIVE SIGNAL SUPERINTENDENT, BRENNEN LEPEH 789.05 Abdominal Pain Periumbilic 03/02/2011 789.05 Abdominal Pain Periumbilic 03/02/2011 MICHELE PROTECTIVE SIGNAL SUPERINTENDENT, BRENNEN LEPEH 789.05 Abdominal Pain Periumbilic 03/02/2011 MICHELEESCOBAR ROGERS BRENNEN LEPEH 789.05 Abdominal Pain Periumbilic 03/02/2011 MICHELEESCOBAR ROGERS BRENNEN LEPEH 789.05 Abdominal Pain Periumbilic 03/02/2011 VIRGEN DO, SHERRON K 789.05 Abdominal Pain Periumbilic 03/02/2011 RYAN HALL APRN 789.05 Abdominal Pain Periumbilic 03/02/2011 VIRGEN DO, SHERRON K 789.05 Abdominal Pain Periumbilic 03/02/2011 VIRGEN DO, SHERRON K 789.05 Abdominal Pain Periumbilic 03/02/2011 VIRGEN DO, SHERRON K 789.05 Abdominal Pain Periumbilic 03/02/2011 VIRGEN DO, SHERRON K 789.05 Abdominal Pain Periumbilic 03/02/2011 VIRGEN DO, SHERRON K 789.05 Abdominal Pain Periumbilic 03/02/2011 VIRGEN DO, SHERRON K 789.05 Abdominal Pain Periumbilic 03/02/2011 VIRGEN DO, SHERRON K 789.05 Abdominal Pain Periumbilic 03/02/2011 VIRGEN DO, SHERRON K 789.05 Abdominal Pain Periumbilic 03/02/2011 VIRGEN DO, SHERRON K 789.05 Abdominal Pain Periumbilic 03/02/2011 VIRGEN DO, SHERRON K 789.05 Abdominal Pain Periumbilic 03/02/2011 OLIVIA AUGUSTINE M 789.05 Abdominal Pain Periumbilic 03/02/2011 VIRGEN DO, SHERRON K 789.05 Abdominal Pain Periumbilic 03/02/2011 VIRGEN DO, SHERRON K 789.05 Abdominal Pain Periumbilic 03/02/2011 OLIVIA AUGUSTINE M 789.05 Abdominal Pain Periumbilic 03/02/2011 VIRGEN DO, SHERRON K 789.05 Abdominal Pain Periumbilic 03/18/2011 V68.1 ISSUE OF REPEAT PRESCRIPTIONS 03/18/2011 BRENNEN MICHELE APRN V68.1 ISSUE OF REPEAT PRESCRIPTIONS 03/18/2011 V68.1 ISSUE OF REPEAT PRESCRIPTIONS 03/18/2011 BRENNEN MICHELE APRN V68.1 ISSUE OF REPEAT PRESCRIPTIONS 03/18/2011 RYNE ROGERS, BRENNEN ZAMORANO V68.1 ISSUE OF REPEAT PRESCRIPTIONS 03/18/2011 BRENNEN MICHELE APRN V68.1 ISSUE OF REPEAT PRESCRIPTIONS 03/18/2011 VIRGEN DO, SHERRON K V68.1 ISSUE OF REPEAT PRESCRIPTIONS 03/18/2011 RAFAEL PROTECTIVE SIGNAL SUPERINTENDENT, RYAN L V68.1 ISSUE OF REPEAT PRESCRIPTIONS 03/18/2011 VIRGEN DO, SHERRON K V68.1 ISSUE OF REPEAT PRESCRIPTIONS 03/18/2011 VIRGEN DO, SHERRON K V68.1 ISSUE OF REPEAT PRESCRIPTIONS 03/18/2011 VIRGEN DO, SHERRON K V68.1 ISSUE OF REPEAT PRESCRIPTIONS 03/18/2011 IVRGEN DO, SHERRON K V68.1 ISSUE OF REPEAT PRESCRIPTIONS 03/18/2011 VIRGEN DO, SHERRON K V68.1 ISSUE OF REPEAT PRESCRIPTIONS 03/18/2011 VIRGEN DO, SHERRON K V68.1 ISSUE OF REPEAT PRESCRIPTIONS 03/18/2011 VIRGEN DO, SHERRON K V68.1 ISSUE OF REPEAT PRESCRIPTIONS 03/18/2011 VIRGEN DO, SHERRON K V68.1 ISSUE OF REPEAT PRESCRIPTIONS 03/18/2011 VIRGEN DO, SHERRON K V68.1 ISSUE OF REPEAT PRESCRIPTIONS 03/18/2011 VIRGEN DO, SHERRON K V68.1 ISSUE OF REPEAT PRESCRIPTIONS 03/18/2011 OLIVIA AUGUSTINE V68.1 ISSUE OF REPEAT PRESCRIPTIONS 03/18/2011 VIRGEN DO, SHERRON K V68.1 ISSUE OF REPEAT PRESCRIPTIONS 03/18/2011 VIRGEN DO, SHERRON K V68.1 ISSUE OF REPEAT PRESCRIPTIONS 03/18/2011 OLIVIA AUGUSTINE V68.1 ISSUE OF REPEAT PRESCRIPTIONS 03/18/2011 VIRGEN DO, SHERRON K V68.1 ISSUE OF REPEAT PRESCRIPTIONS 03/24/2011 Ot 041.12 03/24/2011 Ot 305.1 03/24/2011 Ot 530.81 03/24/2011 Ot 564.00 03/24/2011 Ot 682.2 03/24/2011 Ot V12.51 03/24/2011 Ot V12.79 03/24/2011 Ot V45.72 03/24/2011 Ot V45.79 03/24/2011 Ot V58.61 03/25/2011 V58.69 MEDICATION HIGH RISK 03/25/2011 RYNE ROGERS, BRENNEN ZAMORANO V58.69 MEDICATION HIGH RISK 03/25/2011 V58.69 MEDICATION HIGH RISK 03/25/2011 MICHELE PROTECTIVE SIGNAL SUPERINTENDENT, BRENNEN ZAMORANO V58.69 MEDICATION HIGH RISK 03/25/2011 RYNE ROGERS, BRENNEN ZAMORANO V58.69 MEDICATION HIGH RISK 03/25/2011 RYNE ROGERS, BRENNEN ZAMORANO V58.69 MEDICATION HIGH RISK 03/25/2011 VIRGEN DO, SHERRON K V58.69 MEDICATION HIGH RISK 03/25/2011 RYAN HALL APRN L V58.69 MEDICATION HIGH RISK 03/25/2011 VIRGEN DO, SHERRON K V58.69 MEDICATION HIGH RISK 03/25/2011 VIRGEN DO, SHERRON K V58.69 MEDICATION HIGH RISK 03/25/2011 VIRGEN DO, SHERRON K V58.69 MEDICATION HIGH RISK 03/25/2011 VIRGEN DO, SHERRON K V58.69 MEDICATION HIGH RISK 03/25/2011 VIRGEN DO, SHERRON K V58.69 MEDICATION HIGH RISK 03/25/2011 VIRGEN DO, SHERRON K V58.69 MEDICATION HIGH RISK 03/25/2011 VIRGEN DO, SHERRON K V58.69 MEDICATION HIGH RISK 03/25/2011 VIRGEN DO, SHERRON K V58.69 MEDICATION HIGH RISK 03/25/2011 VIRGEN DO, SHERRON K V58.69 MEDICATION HIGH RISK 03/25/2011 VIRGEN DO, SHERRON K V58.69 MEDICATION HIGH RISK 03/25/2011 OLIVIA AUGUSTINE V58.69 MEDICATION HIGH RISK 03/25/2011 VIRGEN DO, SHERRON K V58.69 MEDICATION HIGH RISK 03/25/2011 VIRGEN DO, SHERRON K V58.69 MEDICATION HIGH RISK 03/25/2011 OLIVIA AUGUSTINE V58.69 MEDICATION HIGH RISK 03/25/2011 VIRGEN DO, SHERRON K V58.69 MEDICATION HIGH RISK 03/26/2011 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 03/26/2011 BRENNEN MICHELE APRN 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 03/26/2011 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 03/26/2011 BRENNEN MICHELE APRN 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 03/26/2011 RYNE MONTES DE OCANBRENNEN 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 03/26/2011 MICHELE PROTECTIVE SIGNAL SUPERINTENDENTBRENNEN 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 03/26/2011 VIRGEN DO, SHERRON K 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 03/26/2011 RAFAEL SUE RYAN L 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 03/26/2011 VIRGEN DO, SHERRON K 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 03/26/2011 VIRGEN DO, SHERRON K 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 03/26/2011 VIRGEN DO, SHERRON K 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 03/26/2011 VIRGEN DO, SHERRON K 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 03/26/2011 VIRGEN DO, SHERRON K 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 03/26/2011 VIRGEN DO, SHERRON K 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 03/26/2011 VIRGEN DO, SHERRON K 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 03/26/2011 VIRGEN DO, SHERRON K 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 03/26/2011 VIRGEN DO, SHERRON K 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 03/26/2011 VIRGEN DO, SHERRON K 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 03/26/2011 OLIVIA AUGUSTINE 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 03/26/2011 VIRGEN DO, SHERRON K 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 03/26/2011 VIRGEN DO, SHERRON K 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 03/26/2011 OLIVIA AUGUSTINE 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 03/26/2011 VIRGEN DO, SHERRON K 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 09/08/2011 Ot 276.51 09/08/2011 Ot 295.30 09/08/2011 Ot 300.00 09/08/2011 Ot 304.00 09/08/2011 Ot 305.1 09/08/2011 Ot 309.81 09/08/2011 Ot 722.91 09/08/2011 Ot V12.51 09/20/2011 Ot 786.50 09/20/2011 Ot 786.52 09/30/2011 298.9 P PSYCHOSIS NOS 09/30/2011 MICHELE PROTECTIVE SIGNAL SUPERINTENDENT, BRENNEN ZAMORANO 298.9 P PSYCHOSIS NOS 09/30/2011 298.9 P PSYCHOSIS NOS 09/30/2011 MIHCELE PROTECTIVE SIGNAL SUPERINTENDENT, BRENNEN LEPEH 298.9 P PSYCHOSIS NOS 09/30/2011 MICHELE PROTECTIVE SIGNAL SUPERINTENDENT, BRENNEN ZAMORANO 298.9 P PSYCHOSIS NOS 09/30/2011 MICHELE PROTECTIVE SIGNAL SUPERINTENDENT, BRENNEN ZAMORANO 298.9 P PSYCHOSIS NOS 09/30/2011 VIRGEN DO, SHERRON K 298.9 P PSYCHOSIS NOS 09/30/2011 MADL PROTECTIVE SIGNAL SUPERINTENDENT, RYAN L 298.9 P PSYCHOSIS NOS 09/30/2011 VIRGEN DO, SHERRON K 298.9 P PSYCHOSIS NOS 09/30/2011 VIRGEN DO, SHERRON K 298.9 P PSYCHOSIS NOS 09/30/2011 VIRGEN DO, SHERRON K 298.9 P PSYCHOSIS NOS 09/30/2011 VIRGEN DO, SHERRON K 298.9 P PSYCHOSIS NOS 09/30/2011 VIRGEN DO, SHERRON K 298.9 P PSYCHOSIS NOS 09/30/2011 VIRGEN DO, SHERRON K 298.9 P PSYCHOSIS NOS 09/30/2011 VIRGEN DO, SHERRON K 298.9 P PSYCHOSIS NOS 09/30/2011 VIRGEN DO, SHERRON K 298.9 P PSYCHOSIS NOS 09/30/2011 VIRGEN DO, SHERRON K 298.9 P PSYCHOSIS NOS 09/30/2011 VIRGEN DO, SHERRON K 298.9 P PSYCHOSIS NOS 09/30/2011 BEVERLEY STAFF RESEARCH ASSOCIATE, OLIVIA M 298.9 P PSYCHOSIS NOS 09/30/2011 VIRGEN DO, SHERRON K 298.9 P PSYCHOSIS NOS 09/30/2011 VIRGEN DO, SHERRON K 298.9 P PSYCHOSIS NOS 09/30/2011 BEVERLEY STAFF RESEARCH ASSOCIATE, OLIVIA M 298.9 P PSYCHOSIS NOS 09/30/2011 VIRGEN DO, SHERRON K 298.9 P PSYCHOSIS NOS 10/04/2013 RYNE MONTES DE OCAN, BRENNEN ZAMORANO 346.90 MIGRAINE HEADACHE 10/04/2013 RYNE PROTECTIVE SIGNAL SUPERINTENDENT, BRENNEN ZAMORANO 346.90 MIGRAINE HEADACHE 10/04/2013 VIRGEN DO, SHERRON K 346.90 MIGRAINE HEADACHE 10/04/2013 MADL PROTECTIVE SIGNAL SUPERINTENDENT, YRAN L 346.90 MIGRAINE HEADACHE 10/04/2013 VIRGEN DO, SHERRON K 346.90 MIGRAINE HEADACHE 10/04/2013 VIRGEN DO, SHERRON K 346.90 MIGRAINE HEADACHE 10/04/2013 VIRGEN DO, SHERRON K 346.90 MIGRAINE HEADACHE 10/04/2013 VIRGEN DO, SHERRON K 346.90 MIGRAINE HEADACHE 10/04/2013 VIRGEN DO, SHERRON K 346.90 MIGRAINE HEADACHE 10/04/2013 VIRGEN DO, SHERRON K 346.90 MIGRAINE HEADACHE 10/04/2013 VIRGEN DO, SHERRON K 346.90 MIGRAINE HEADACHE 10/04/2013 VIRGEN DO, SHERRON K 346.90 MIGRAINE HEADACHE 10/04/2013 VIRGEN DO, SHERRON K 346.90 MIGRAINE HEADACHE 10/04/2013 VIRGEN DO, SHERRON K 346.90 MIGRAINE HEADACHE 10/04/2013 BEVERLEY STAFF RESEARCH ASSOCIATE, OLIVIA M 346.90 MIGRAINE HEADACHE 10/04/2013 VIRGEN DO, SHERRON K 346.90 MIGRAINE HEADACHE 10/04/2013 VIRGEN DO, SHERRON K 346.90 MIGRAINE HEADACHE 10/04/2013 BEVERLEY STAFF RESEARCH ASSOCIATE, OLIVIA M 346.90 MIGRAINE HEADACHE 10/04/2013 VIRGEN DO, SHERRON K 346.90 MIGRAINE HEADACHE 02/13/2014 VIRGEN DO, SHERRON K 338.29 OTHER CHRONIC PAIN 02/13/2014 LAURAVanessa PROTECTIVE SIGNAL SUPERINTENDENT, RYAN L 338.29 OTHER CHRONIC PAIN 02/13/2014 VIRGEN DO, SHERRON K 338.29 OTHER CHRONIC PAIN 02/13/2014 VIRGEN DO, SHERRON K 338.29 OTHER CHRONIC PAIN 02/13/2014 VIRGEN DO, SHERRON K 338.29 OTHER CHRONIC PAIN 02/13/2014 VIRGEN DO, SHERRON K 338.29 OTHER CHRONIC PAIN 02/13/2014 VIRGEN DO, SHERRON K 338.29 OTHER CHRONIC PAIN 02/13/2014 VIRGEN DO, SHERRON K 338.29 OTHER CHRONIC PAIN 02/13/2014 VIRGEN DO, SHERRON K 338.29 OTHER CHRONIC PAIN 02/13/2014 VIRGEN DO, SHERRON K 338.29 OTHER CHRONIC PAIN 02/13/2014 VIRGEN DO, SHERRON K 338.29 OTHER CHRONIC PAIN 02/13/2014 VIRGEN DO, SHERRON K 338.29 OTHER CHRONIC PAIN 02/13/2014 OLIVIA AUGUSTINE M 338.29 OTHER CHRONIC PAIN 02/13/2014 VIRGEN DO, SHERRON K 338.29 OTHER CHRONIC PAIN 02/13/2014 VIRGEN DO, SHERRON K 338.29 OTHER CHRONIC PAIN 02/13/2014 OLIVIA AUGUSTINE 338.29 OTHER CHRONIC PAIN 02/13/2014 VIRGEN DO, SHERRON K 338.29 OTHER CHRONIC PAIN 02/19/2014 MADL PROTECTIVE SIGNAL SUPERINTENDENTRYAN Vanessa 796.9 OTHER NONSPECIFIC ABNORMAL FINDINGS 02/19/2014 VIRGEN DO, SHERRON K 796.9 OTHER NONSPECIFIC ABNORMAL FINDINGS 02/19/2014 VIRGEN DO, SHERRON K 796.9 OTHER NONSPECIFIC ABNORMAL FINDINGS 02/19/2014 VIRGEN DO, SHERRON K 796.9 OTHER NONSPECIFIC ABNORMAL FINDINGS 02/19/2014 VIRGEN DO, SHERRON K 796.9 OTHER NONSPECIFIC ABNORMAL FINDINGS 02/19/2014 VIRGEN DO, SHERRON K 796.9 OTHER NONSPECIFIC ABNORMAL FINDINGS 02/19/2014 VIRGEN DO, SHERRON K 796.9 OTHER NONSPECIFIC ABNORMAL FINDINGS 02/19/2014 VIRGEN DO, SHERRON K 796.9 OTHER NONSPECIFIC ABNORMAL FINDINGS 02/19/2014 VIRGEN DO, SHERRON K 796.9 OTHER NONSPECIFIC ABNORMAL FINDINGS 02/19/2014 VIRGEN DO, SHERRON K 796.9 OTHER NONSPECIFIC ABNORMAL FINDINGS 02/19/2014 VIRGEN DO, SHERRON K 796.9 OTHER NONSPECIFIC ABNORMAL FINDINGS 02/19/2014 OLIVIA AUGUSTINE M 796.9 OTHER NONSPECIFIC ABNORMAL FINDINGS 02/19/2014 VIRGEN DO, SHERRON K 796.9 OTHER NONSPECIFIC ABNORMAL FINDINGS 02/19/2014 VIRGEN DO, SHERRON K 796.9 OTHER NONSPECIFIC ABNORMAL FINDINGS 02/19/2014 OLIVIA AUGUSTINE M 796.9 OTHER NONSPECIFIC ABNORMAL FINDINGS 02/19/2014 VIRGEN DO, SHERRON K 796.9 OTHER NONSPECIFIC ABNORMAL FINDINGS 07/23/2014 VIRGEN DO, SHERRON K 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 AND OTHER LOWER URINARY TRACT SYMPTOMS (LUTS) 07/23/2014 VIRGEN DO, SHERRON K 724.2 LUMBAGO 07/23/2014 VIRGEN DO, SHERRON K 729.5 PAIN IN LIMB 07/23/2014 VIRGEN DO, SHERRON K 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 AND OTHER LOWER URINARY TRACT SYMPTOMS (LUTS) 07/23/2014 VIRGEN DO, SHERRON K 724.2 LUMBAGO 07/23/2014 VIRGEN DO, SHERRON K 729.5 PAIN IN LIMB 07/23/2014 VIRGEN DO, SHERRON K 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 AND OTHER LOWER URINARY TRACT SYMPTOMS (LUTS) 07/23/2014 VIRGEN DO, SHERRON K 724.2 LUMBAGO 07/23/2014 VIRGEN DO, SHERRON K 729.5 PAIN IN LIMB 07/23/2014 VIRGEN DO, SHERRON K 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 AND OTHER LOWER URINARY TRACT SYMPTOMS (LUTS) 07/23/2014 VIRGEN DO, SHERRON K 724.2 LUMBAGO 07/23/2014 VIRGEN DO, SHERRON K 729.5 PAIN IN LIMB 07/23/2014 OLIVIA AUGUSTINE M 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 AND OTHER LOWER URINARY TRACT SYMPTOMS (LUTS) 07/23/2014 OLIVIA AUGUSTINE M 724.2 LUMBAGO 07/23/2014 OLIVIA AUGUSTINE M 729.5 PAIN IN LIMB 07/23/2014 VIRGEN DO, SHERRON K 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 AND OTHER LOWER URINARY TRACT SYMPTOMS (LUTS) 07/23/2014 VIRGEN DO, SHERRON K 724.2 LUMBAGO 07/23/2014 VIRGEN DO, SHERORN K 729.5 PAIN IN LIMB 07/23/2014 VIRGEN DO, SHERRON K 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 AND OTHER LOWER URINARY TRACT SYMPTOMS (LUTS) 07/23/2014 VIRGEN DO, SHERRON K 724.2 LUMBAGO 07/23/2014 VIRGEN DO, SHERRON K 729.5 PAIN IN LIMB 07/23/2014 OLIVIA AUGUSTINE M 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 AND OTHER LOWER URINARY TRACT SYMPTOMS (LUTS) 07/23/2014 OLIVIA AUGUSTINE M 724.2 LUMBAGO 07/23/2014 OLIVIA AUGUSTINE M 729.5 PAIN IN LIMB 07/23/2014 VIRGEN DO, SHERRON K 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 AND OTHER LOWER URINARY TRACT SYMPTOMS (LUTS) 07/23/2014 SHERRON VIRGEN DO K 724.2 LUMBAGO 07/23/2014 SHERRON VIRGEN DO K 729.5 PAIN IN LIMB 08/22/2014 OLIVIA AUGUSTINE 311 MO DEPRESS NOS 08/22/2014 SHERRON VIRGEN DO K 311 MO DEPRESS NOS 08/22/2014 SHERRON VIRGEN DO K 311 MO DEPRESS NOS 08/22/2014 OLIVIA AUGUSTINE M 311 MO DEPRESS NOS 08/22/2014 SHERRON VIRGEN DO K 311 MO DEPRESS NOS 11/05/2014 OLIVIA AUGUSTINE 296.32 MO DEPRESSIVE RECURRENT MODERATE 11/05/2014 SHERRON VIRGEN DO K 296.32 MO DEPRESSIVE RECURRENT MODERATE 02/18/2015 Ot 784.0 02/18/2015 Ot V81.5 02/18/2015 Ot 593.9 02/18/2015 Ot 598.9 02/18/2015 Ot V72.63 02/18/2015 Ot V72.83 02/18/2015 Ot V74.8 02/18/2015 Ot 348.9 02/18/2015 Ot 784.0 02/18/2015 Ot 452 02/18/2015 Ot 557.0 02/18/2015 Ot 789.59 02/18/2015 GILES CHRISTIANSON MD Ot 300.00 02/18/2015 GILES CHRISTIANSON MD Ot 301.0 02/18/2015 GILES CHRISTIANSON MD Ot 414.01 02/18/2015 GILES CHRISTIANSON MD Ot 424.0 02/18/2015 GILES CHRISTIANSON MD Ot 427.32 02/18/2015 GILES CHRISTIANSON MD Ot 919.4 02/18/2015 GILES CHRISTIANSON MD Ot E000.8 02/18/2015 GILES CHRISTIANSON MD Ot E906.4 Procedures Code Description [place] [address] PSYCH IND W/MED CK 20 09/06/2012 95125 ROUTINE VENIPUNCTURE 02/13/2014 58190 INR (IN HOUSE) 08569 CBC 02/13/2014 08717 CMP 02/13/2014 5257499 GFR CALC (RESULT ONLY) 02/13/2014 58556 VITAMIN D 25-HYDROXY (D2,D3, TOTAL) 02/13/2014 56278 VIT B 12 2013 86334 TSH 02/13/2014 TESTFRTOT TESTOSTERONE FREE AND TOTAL MALE 02/13/2014 54668 ROUTINE VENIPUNCTURE 02/19/2014 26565 LIPID PANEL 02/19 J1080 Depo-Testosterone 200 mg/mL oil 03/12/2014 17973 THERAPUTIC INJ SQ/IM 04/11/2014 25720 THERAPUTIC INJ SQ/IM 05/08/2014 75722 THERAPUTIC INJ SQ/IM 06/20/2014 92781 THERAPUTIC INJ SQ/IM 06/20/2014 03940 ROUTINE VENIPUNCTURE 06/21/2014 38064 UA LONG DIP 06/21 TESTFRTOT TESTOSTERONE FREE AND TOTAL MALE 06/22/2014 17196 TESTOSTERONE TOTAL MALES 07/23/2014 86768 THERAPUTIC INJ SQ/IM 07/23/2014 J1080 Depo-Testosterone 200 mg/mL oil 07/23/2014 62998 THERAPUTIC INJ SQ/IM 08/20/2014 59703 THERAPUTIC INJ SQ/IM 09/27/2014 39084 AMERITOX 2014 11337 THERAPUTIC INJ SQ/IM 12/21/2014 Results Encounters ACCT No. Visit Date/Time Discharge Status Pt. Type Provider Facility Loc./Unit Complaint [id number] 12/21/2014 14:36:00 12/21/2014 23: 59:59 [facility] Outpatient SHERRON VIRGEN DO [id number] 11/05/2014 10:03:00 11/05/2014 23: 59:59 [facility] Outpatient SHERRON VIRGEN DO [id number] 11/05/2014 09:04:00 11/05/2014 23: 59:59 [facility] Outpatient OLIVIA AUGUSTINE [id number] 09/27/2014 12:57:00 09/27/2014 23: 59:59 [facility] Outpatient SHERRON VIRGEN DO [id number] 08/22/2014 08:19:00 08/22/2014 23: 59:59 [facility] Outpatient OLIVIA AUGUSTINE [id number] 08/20/2014 11:14:00 08/20/2014 23: 59:59 [facility] Outpatient SHERRON VIRGEN DO [id number] 08/20/2014 10:45:00 08/20/2014 23: 59:59 CLS Outpatient VIRGEN DOSHERRON [id number] 07/23/2014 12:53:00 07/23/2014 23: 59:59 CLS Outpatient VIRGEN DOSHERRON [id number] 07/23/2014 12:53:00 07/23/2014 23: 59:59 CLS Outpatient VIRGEN DOSHERRON [id number] 06/21/2014 11:51:00 06/21/2014 23: 59:59 CLS Outpatient VIRGEN DOSHERRON [id number] 06/20/2014 09:06:00 06/20/2014 23: 59:59 CLS Outpatient VIRGEN DOSHERRON [id number] 06/05/2014 11:28:00 06/05/2014 23: 59:59 CLS Outpatient VIRGEN DOSHERRON [id number] 05/08/2014 13:37:00 05/08/2014 23: 59:59 CLS Outpatient VIRGEN DOSHERRON [id number] 04/11/2014 12:20:00 04/11/2014 23: 59:59 CLS Outpatient VIRGEN DOSHERRON [id number] 03/12/2014 09:18:00 03/12/2014 23: 59:59 CLS Outpatient VIRGEN DOSHERRON [id number] 02/19/2014 08:24:00 02/19/2014 23: 59:59 CLS Outpatient MADL PROTECTIVE SIGNAL SUPERINTENDENTRYAN [id number] 02/13/2014 08:48:00 02/13/2014 23: 59:59 CLS Outpatient VIRGEN DOSHERRON [id number] 12/12/2013 16:22:00 12/12/2013 23: 59:59 CLS Outpatient MICHELE PROTECTIVE SIGNAL SUPERINTENDENTBRENNEN [id number] 10/04/2013 09:47:00 10/04/2013 23: 59:59 CLS Outpatient MICHELE PROTECTIVE SIGNAL SUPERINTENDENTBRENNEN [id number] 01/23/2013 11:08:00 01/23/2013 23: 59:59 CLS Outpatient MICHELE PROTECTIVE SIGNAL SUPERINTENDENTBRENNEN [id number] 09/06/2012 10:35:00 09/06/2012 23: 59:59 CLS Outpatient MICHELE PROTECTIVE SIGNAL SUPERINTENDENTBRENNEN [id number] 04/08/2012 09:14:00 04/08/2012 23:59: 59 CLS Outpatient [id number] 01/10/2013 11:04:00 Document Registration [id number] 05/13/2017 11:16:00 2016 23:59:59 CLS Preadmit MARK DRAPER, NAHOMI De La [place] [facility] RAD MASS OF SINUS [id number] 02/16/2015 22:13:00 2014 12:04:00 DIS Inpatient MEGHAN DRAPER, GILES Caal [facility] [id number] 02/18/2015 08:22:00 Document Registration [id number] 02/18/2015 08:21:00 Document Registration [id number] 02/18/2015 08:21:00 Document Registration [id number] 02/18/2015 08:21:00 Document Registration [id number] 09/20/2011 01:05:00 Document Registration [id number] 09/06/2011 00:55:00 Document Registration [id number] 04/10/2011 10:45:00 Document Registration [id number] 02/23/2011 16:44:00 Document Registration [id number] 02/21/2011 17:19:00 Document Registration [id number] 02/21/2011 08:45:00 Document Registration [id number] 02/14/2011 14:03:00 Document Registration [id number] 02/01/2011 20:31:00 Document Registration [id number] 10/29/2010 19:11:00 Document Registration [id number] 02/11/2010 06:03:00 Document Registration
== END 2017-06-28 21:29 | disposition left against medical advice (07) ==
LOC: EDUNIT# 20:13 → ER 20:15
DX: K92.1 Melena (principal); R10.9 Unspecified abdominal pain

== ENCOUNTER 2017-07-12 05:37 | Outpatient (CLI) | payer MEDICAID ==
[~2017-07-12] VITALS: Ht 182.9 cm; Wt 101.3 kg
== END 2017-07-12 13:22 ==
LOC: PREOP 05:37
PROVIDERS: ATTEND Surgery
DX: Z01.818 Encounter for other preprocedural examination (principal); R10.9 Unspecified abdominal pain; Z87.19 Personal history of other diseases of the digestive system

== ENCOUNTER 2017-07-14 09:27 | Day surgery (SDC) | payer MEDICAID ==
[~2017-07-14] VITALS: Ht 182.9 cm; Wt 101.3 kg
--- OUTSIDE RECORDS SUMMARY | 2017-07-14 09:32 | XMS REPORT | Clinical Summary ---
Author Author [facility] Organization [facility] Address Unknown Phone Unavailable Care Team Providers Care Gimp Tacker Name Role Phone PCP Unavailable Source Comments Some departments are not documenting in the electronic medical record. If you do not see the information that you expected, contact Release of Information in the Health Information Management department at [phone] for further assistance in locating additional records.[facility] Allergies No Known Allergies Current Medications [...] 1975 COLORECTAL CANCER 2008 SCREENING INFLUENZA VACCINE 04/20/2017 Results Not on filefrom Last 3 Months
[2017-07-14] MEDS ORDERED: LACTATED RINGERS 1,000 ML IV ONE (10:10)
[2017-07-14] MEDS ORDERED: LACTATED RINGERS 1,000 ML IV STA (10:10)
[2017-07-14 10:12] VITALS: BP 118/90
[2017-07-14] MEDS ORDERED: LIDOCAINE JELLY 2% (XYLOCAINE) 5 ML TUBE MM PRN (10:15)
[2017-07-14] MEDS ORDERED: MIDAZOLAM 5 MG/5 ML (VERSED) VIAL ONE (10:25)
[2017-07-14] MEDS ORDERED: PROPOFOL INJECTION 100 ML IV ONE (10:25)
[2017-07-14] MEDS ORDERED: KETAMINE HCL 100 MG/ML 5 ML VIAL ONE (10:26)
[2017-07-14] MEDS ORDERED: CIPR-225 PO (10:46)
[2017-07-14] MEDS ORDERED: ASPI-586 PO (10:46)
[2017-07-14] MEDS ORDERED: MELO15TA39 PO (10:46)
[2017-07-14] MEDS ORDERED: DIAZ10TA3 PO (10:46)
[2017-07-14] MEDS ORDERED: OMEP20TA7 PO (10:46)
[2017-07-14] MEDS ORDERED: DOXY100C2 PO (10:46)
[2017-07-14] MEDS ORDERED: SENN8.6T68 PO (10:46)
[2017-07-14] MEDS ORDERED: HYDR-3812 PO (10:46)
[2017-07-14] MEDS ORDERED: METR500T PO (10:46)
[2017-07-14] MEDS ORDERED: IBUP-1780 PO (10:46)
[2017-07-14] MEDS ORDERED: CYCL10TA9 PO (10:46)
[2017-07-14] MEDS ORDERED: AMIT25TA9 PO (10:46)
--- NOTE | 2017-07-14 11:19 | Conscious Sedation/ASA ---
Conscious Sedation Pre-Proced Time Reviewed: 11:00 ASA Class: 2 Airway Mallampati Classification: (stillaguamish appropriate class) I. II. III, IV Lungs Heart ASA score ASA 1: a normal healthy patient ASA 2: a patient with a mild systemic disease (mid diabetes, controlled hypertension, obesity ASA 3: a patient with a severe systemic disease that limits activity (angina , COPD, prior Myocardial infarction) ASA 4: a patient with an incapacitating disease that is a constant threat to life (CHF, renal failure) ASA 5: a moribund patient not expected to survive 24 hrs. (ruptured aneurysm) ASA 6: a declared brain patient whose organs are being harvested. For emergent operations, add the letter E after the classification Grade 2 Sedation Plan: Analgesia, Amnesia, Plan communicated to team members, Discussed options with patient/fam, Discussed risks with patient/fam Note The patient is an appropriate candidate to undergo the planned procedure, sedation, and anesthesia. The patient immediately re-assessed prior to indication. IMMANUEL FRANCO MD Jul 14, 2017 11:19 am
--- NOTE | 2017-07-14 11:21 | Progress Note-Pre Operative ---
Pre-Operative Progress Note H&P Reviewed The H&P was reviewed, patient examined and no changes noted. Date Seen by Provider: Jul 14, 2017 Time Seen by Provider: 11:00 Date H&P Reviewed: Jul 14, 2017 Time H&P Reviewed: 11:00 Pre-Operative Diagnosis: hx colon polyp IMMANUEL FRANCO MD Jul 14, 2017 11:21 am
[2017-07-14] MEDS ORDERED: ACETAMINOPHEN 325 MG TABLET/CAPLET (TYLENOL) PO PRN (11:30)
[2017-07-14] MEDS ORDERED: HYDROcodone/APAP 5 MG/325 MG (LORTAB) TAB PO PRN (11:30)
[2017-07-14] MEDS ORDERED: morphine INJ 10 MG/ML 1ML (SYR OR VIAL) IV PRN (11:30)
[2017-07-14] MEDS ORDERED: ONDANSETRON 4 MG/2 ML (SDV) Z0FRAN IV PRN (11:30)
[2017-07-14 12:50] VITALS: BP 110/80
--- NOTE | 2017-07-14 13:00 | Progress Note-Post Operative ---
Post-Operative Progess Note Surgeon (s)/Head Wrestling Coach (s) Surgeon IMMANUEL FRANCO MD Head Wrestling Coach: none Pre-Operative Diagnosis hx colon polyp Post-Operative Diagnosis chronic stage 2-3 ext and int hemorrhoids, severe impacted pandiverticulosis, no diverticulitis. Procedure & Operative Findings Date of Procedure 07/14/17 Procedure Performed/Findings Colonoscopy Anesthesia Type MAC Estimated Blood Loss Estimated blood loss (mL): minimal Specimens/Packing Specimens Removed none IMMANUEL FRANCO MD Jul 14, 2017 1:00 pm
--- NOTE | 2017-07-14 13:02 | Discharge Inst-Surgical ---
D/C Lap Instructions-JOAN Follow Up 5 yrs Activity as tolerated High Fiber Diet 25g or more per day Avoid Alcohol, Caffeine, Spicy Parmele and Acid foods. Drink 64 fluid oz or more of fluids per day. Symptoms to Report: Fever over 101 degree F, Nausea/Vomiting If any problems/questions: Contact your physician or go to Emergency Room IMMANUEL FRANCO MD Jul 14, 2017 1:02 pm
[2017-07-14 13:30] VITALS: BP 114/84
[2017-07-14 13:54] VITALS: BP 114/84
--- NOTE | 2017-07-14 21:15 | OPERATIVE REPORT ---
DATE OF SERVICE: 07/14/2017 ATTENDING PRIMARY CARE PHYSICIAN: [facility]. PREOPERATIVE DIAGNOSES: 1. History polyp with focus of adenocarcinoma. 2. History of diverticulosis with abdominal pain. POSTOPERATIVE DIAGNOSES: Chronic between stage II and III external and internal hemorrhoids, severe pandiverticulosis with impacted stools identified within the diverticular pockets. There were no signs of any mucosal inflammatory change to indicate any active diverticulitis. PROCEDURE: Colonoscopy. SURGEON: Immanuel Franco MD ANESTHESIA: Monitored anesthesia care. ESTIMATED BLOOD LOSS: Minimal. FINDINGS: Chronic stage between stage II and III external and internal hemorrhoids. There was a severe diverticulosis identified throughout the majority of the colon with spreading at the cecum and part of the ascending colon. Within the diverticular pockets were impacted stool despite the colonic preparation consistent with an impacted diverticulosis; however, no mucosal inflammatory changes to indicate any active diverticulitis. There were no polyps or any neoplasms identified. DISPOSITION: The patient tolerated the procedure well. INDICATIONS: The patient is a 56-year-old male with a history of a colonic polyp, which was excised and found to have a focus of adenocarcinoma. He reports also that he did have some form of colonic resection; however, he is unsure what location. He does have a history of psychiatric issues as well. He does report that he has a strong history of a hard constipation. He did have abdominal pain and underwent a CT scan where significant diverticulosis was identified at that time. DESCRIPTION OF PROCEDURE: The patient was brought to the endoscopy suite, laid in the left lateral decubitus position. After adequate IV pain and sedating medications and monitored anesthesia care, a digital rectal examination was performed. Chronic between stage II and III external and internal hemorrhoids were identified, which were not actively edematous nor inflamed and no bleeding. Normal sphincter tone was felt and there were no palpable masses. The prostate gland was palpable and appeared normal. The endoscope was then intubated to the anus and rectum and gently insufflated. The endoscope was then advanced through the valves of Zamudio of the rectum with no polyps or any neoplasms identified. Through the entire area of the sigmoid, descending and transverse colon, a significant diverticulosis identified. There was also hard impacted stool within the colonic diverticula; however, there were no mucosal inflammatory changes to indicate any active diverticulitis. The cecum appeared normal. The endoscope was then slowly withdrawn taking a second look and suctioning residual air with no additional findings. The patient tolerated the procedure well. We will recommend medical management with a very high fiber diet with at least 31 more grams of fiber per day as well as copious amounts of water to promote soft stools on a daily basis. Due to this extensive diverticulosis, he is at risk of developing severe diverticulitis as well as potential complications. No polyps were identified and from our standpoint, he does not need another colonoscopy for another 5 years; however, sooner if any problems arise. Job ID: [id number] DocumentID: [id number] Dictated Date: 07/14/2017 13:11:42 Spring Tester Date: 07/14/2017 21:15:28 Dictated By: IMMANUEL FRANCO MD MTDD
== END 2017-07-14 13:45 | disposition home or self-care (01) ==
LOC: ENDO 09:27
PROVIDERS: ATTEND Surgery
DX: K62.5 Hemorrhage of anus and rectum (principal); K64.1 Second degree hemorrhoids; K57.32 Diverticulitis of large intestine without perforation or abscess without bleeding; Z86.010 Personal history of colon polyps; I10 Essential (primary) hypertension; I48.91 Unspecified atrial fibrillation; F41.9 Anxiety disorder, unspecified; F32.9 Major depressive disorder, single episode, unspecified; M54.5 Low back pain; Z98.1 Arthrodesis status; Z79.82 Long term (current) use of aspirin; Z79.899 Other long term (current) drug therapy

== ENCOUNTER 2017-08-21 05:51 | Inpatient (IN) | payer MEDICAID ==
[~2017-08-21] VITALS: Ht 182.9 cm; Wt 102.1 kg
[2017-08-21] VITALS (16 sets, daily range): BP systolic 97–132; BP diastolic 63–85
[~2017-08-21 05:51] MED LIST changes: +AMIT25TA9 PO; +ASPI-586 PO; +CIPR-225 PO; +CYCL10TA9 PO; +DIAZ10TA3 PO; +HYDR-3812 PO; +METR500T PO; +SENN8.6T68 PO
--- OUTSIDE RECORDS SUMMARY | 2017-08-21 08:35 | XMS REPORT | Clinical Summary ---
Author Author [facility] Organization [facility] Address Unknown Phone Unavailable Care Team Providers Care Rat Farmer Name Role Phone PCP Unavailable Source Comments Some departments are not documenting in the electronic medical record. If you do not see the information that you expected, contact Release of Information in the Health Information Management department at [phone] for further assistance in locating additional records.[facility] Allergies No Known Allergies Current Medications [...]
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
[2017-08-21 09:32] LABS: MEAN PLATELET VOLUME 10.3 FL (7.4-10.4); RED BLOOD COUNT 5.14 10^6/uL (4.35-5.85); RED CELL DISTRIBUTION WIDTH 13.5 % (10.0-14.5); WHITE BLOOD COUNT 12.1 10^3/uL (4.3-11.0)
[2017-08-21] MEDS: POTASSIUM CL 10MEQ/50ML IVPB 50 ML IV SCH (09:32)
[2017-08-21] MEDS: KCL 20 MEQ TAB (K-DUR) PO SCH (09:32)
[2017-08-21] MEDS: MAGNESIUM 1 GM/100 ML IVPB 100 ML IV SCH (09:32)
[2017-08-21] MEDS: NS IV 1000 ML 1,000 ML IV SCH (09:32)
--- NOTE | 2017-08-21 09:37 | Diagnostic Imaging Report ---
INDICATION: Pulmonary embolus, shortness of breath. EXAMINATION: Chest dated 08/21/2017. COMPARISON: 02/17/2015. FINDINGS: Heart is stable. Pulmonary vasculature is mildly prominent. Bibasilar atelectasis is seen. There are small bilateral effusions. No pneumothorax. IMPRESSION: 1. Bibasilar atelectasis with small adjacent effusions. 2. Pulmonary vascular congestion. Dictated by: Dictated on workstation # [id number]
[2017-08-21 09:46] LABS: ALANINE AMINOTRANSFERASE 32 U/L (0-55); ALBUMIN 3.6 GM/DL (3.2-4.5); ANION GAP 8 MMOL/L (5-14); ASPARTATE AMINO TRANSFERASE 21 U/L (5-34); BILIRUBIN,TOTAL 0.7 MG/DL (0.1-1.0); BLOOD UREA NITROGEN 14 MG/DL (7-18); BUN/CREATININE RATIO 14; CALCIUM 8.9 MG/DL (8.5-10.1); CARBON DIOXIDE 26 MMOL/L (21-32); CHLORIDE 104 MMOL/L (98-107); CREATININE SERUM 1.03 MG/DL (0.60-1.30); GFR ESTIMATED > 60; GLUCOSE 111 MG/DL (70-105); MAGNESIUM 1.9 MG/DL (1.8-2.4); PHOSPHORUS 2.7 MG/DL (2.3-4.7); POTASSIUM 4.5 MMOL/L (3.6-5.0); SODIUM 138 MMOL/L (135-145); TOTAL PROTEIN 6.6 GM/DL (6.4-8.2)
[2017-08-21 09:51] LABS: TROPONIN I < 0.30 NG/ML (<0.30)
--- NOTE | 2017-08-21 10:36 | Diagnostic Imaging Report ---
INDICATION: History of DVT, pulmonary embolus. EXAMINATION: Bilateral lower extremity venous Doppler from 08/21/2017. TECHNIQUE: Waveform and spectral analysis of the lower extremity venous structures. FINDINGS: There is no evidence for deep vein thrombosis with normal compressibility, augmentation and spontaneity of all visualized venous structures. IMPRESSION: 1. No evidence for deep vein thrombosis. Dictated by: Dictated on workstation # [id number]
[2017-08-21] MEDS ORDERED: INFLUENZA TRIvalent 2017-2018 0.5 ML/45 MCG SYR IM ONE (11:15)
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
[2017-08-21] MEDS: morphine INJ 4 MG/ML 1 ML (VIAL/SYRINGE) IVP PRN ×2 (11:47→15:45)
[2017-08-21] MEDS: PANTOPRAZOLE 40 MG (PROTONIX) TAB PO SCH (12:31)
[2017-08-21] MEDS ORDERED: SENNOSIDES 8.6 MG (SENOKOT) TAB PO SCH (13:00)
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
[2017-08-21] MEDS: MELOXICAM 7.5 MG (MOBIC) TABLET PO SCH (14:28)
[2017-08-21] MEDS ORDERED: RT-ALBUTEROL SULF 2.5 MG/3 ML PRE-MIX VIAL IH PRN (15:00)
[2017-08-21] MEDS: ENOXAPARIN 100 MG/1 ML (LOVENOX) SYR SC SCH (15:46)
[2017-08-21] MEDS: HYDROcodone/APAP 5 MG/325 MG (LORTAB) TAB PO PRN (18:34)
[2017-08-21] MEDS ORDERED: ALPRAZolam 1 MG (XANAX) TAB ONE (21:00)
[2017-08-21] MEDS: ALPRAZolam 1 MG (XANAX) TAB PO PRN (21:05)
[2017-08-22] VITALS (13 sets, daily range): BP systolic 90–109; BP diastolic 57–74
[2017-08-22] MEDS: ENOXAPARIN 100 MG/1 ML (LOVENOX) SYR SC SCH ×2 (03:57→14:00)
[2017-08-22] MEDS: NS IV 1000 ML 1,000 ML IV SCH ×2 (04:34→08:10)
[2017-08-22 04:37] LABS: BASOPHILS # (AUTO) 0.1 10^3/uL (0.0-0.1); BASOPHILS % (AUTO) 1 % (0-10); EOSINOPHILS # (AUTO) 0.6 10^3/uL (0.0-0.3); EOSINOPHILS % (AUTO) 6 % (0-10); LYMPHOCYTES # (AUTO) 1.9 X 10^3 (1.0-4.0); LYMPHOCYTES % (AUTO) 20 % (12-44); MEAN CORPUSCULAR HEMOGLOBIN 28 PG (25-34); MEAN CORPUSCULAR HGB CONC 33 G/DL (32-36); MEAN CORPUSCULAR VOLUME 86 FL (80-99); MEAN PLATELET VOLUME 10.4 FL (7.4-10.4); MONOCYTES # (AUTO) 2.1 X 10^3 (0.0-1.0); MONOCYTES % (AUTO) 21 % (0-12); NEUTROPHILS # (AUTO) 5.1 X 10^3 (1.8-7.8); NEUTROPHILS % (AUTO) 52 % (42-75); PLATELET COUNT 360 10^3/uL (130-400); RED CELL DISTRIBUTION WIDTH 13.4 % (10.0-14.5); WHITE BLOOD COUNT 9.8 10^3/uL (4.3-11.0)
[2017-08-22 05:04] LABS: ANION GAP 5 MMOL/L (5-14); BLOOD UREA NITROGEN 15 MG/DL (7-18); BUN/CREATININE RATIO 14; CALCIUM 8.5 MG/DL (8.5-10.1); CARBON DIOXIDE 27 MMOL/L (21-32); CHLORIDE 105 MMOL/L (98-107); GFR ESTIMATED > 60; GLUCOSE 99 MG/DL (70-105); MAGNESIUM 1.8 MG/DL (1.8-2.4); POTASSIUM 3.9 MMOL/L (3.6-5.0); SODIUM 137 MMOL/L (135-145)
[2017-08-22] MEDS ORDERED: MAGNESIUM 1 GM/100 ML IVPB 100 ML IV SCH (06:00)
[2017-08-22] MEDS ORDERED: POTASSIUM CL 10MEQ/50ML IVPB 50 ML IV SCH (06:00)
[2017-08-22] MEDS ORDERED: KCL 20 MEQ TAB (K-DUR) PO SCH (06:00)
[2017-08-22] MEDS: MAGNESIUM 1 GM/100 ML IVPB 100 ML IV SCH (06:19)
[2017-08-22] MEDS: KCL 20 MEQ TAB (K-DUR) PO SCH (06:19)
[2017-08-22] MEDS: POTASSIUM CL 10MEQ/50ML IVPB 50 ML IV SCH (06:19)
[2017-08-22] MEDS: ASPIRIN E.C. 81 MG (ECOTRIN) TAB PO SCH (08:07)
[2017-08-22] MEDS: MELOXICAM 7.5 MG (MOBIC) TABLET PO SCH (08:07)
[2017-08-22] MEDS: AMITRIPTYLINE 25 MG (ELAVIL) TAB PO SCH ×2 (08:07→09:00)
[2017-08-22] MEDS: PANTOPRAZOLE 40 MG (PROTONIX) TAB PO SCH (08:07)
--- NOTE | 2017-08-22 08:09 | Diagnostic Imaging Report ---
INDICATION: Pulmonary embolism, shortness of breath COMPARISON: 08/21/17 FINDINGS: Single view of the chest demonstrates worsening basilar atelectasis, effusion and infiltrate. The heart is prominent without pulmonary edema. There is no pneumothorax. IMPRESSION: Slightly worsening basilar atelectasis, effusion and infiltrate. Dictated by: Dictated on workstation # [id number]
[2017-08-22] MEDS ORDERED: OMEPRAZOLE PO SCH (09:00)
--- NOTE | 2017-08-22 10:32 | Pulmonary Progress Note ---
Subjective Time Seen by Provider: 08:17 Subjective/Events-last exam no complications noted. Exam Exam Vital Signs Date Time Temp Pulse Resp B/P (MAP) Pulse Ox O2 Delivery O2 Flow Rate FiO2 08/22/17 08:15 99.1 Nasal Cannula 3.00 08/22/17 08:10 Nasal Cannula 2.00 08/22/17 07:00 80 08/22/17 06:00 79 15 99/66 (77) 96 Nasal Cannula 2.00 08/22/17 05:00 80 14 97/65 (76) 96 Nasal Cannula 2.00 08/22/17 04:00 Nasal Cannula 2.00 08/22/17 04:00 86 17 95/74 (81) 94 Nasal Cannula 2.00 08/22/17 03:00 83 15 98/61 (73) 93 Nasal Cannula 2.00 08/22/17 01:00 80 08/22/17 01:00 80 14 109/73 (85) 95 Nasal Cannula 2.00 08/22/17 00:00 84 13 90/63 (72) 95 Nasal Cannula 2.00 08/22/17 00:00 Nasal Cannula 2.00 08/21/17 23:00 89 19 98/63 (75) 94 Nasal Cannula 2.00 08/21/17 22:00 97 25 97/64 (75) 92 Nasal Cannula 2.00 08/21/17 21:00 90 17 102/63 (76) 93 Nasal Cannula 2.00 08/21/17 20:00 Nasal Cannula 2.00 08/21/17 20:00 94 17 108/66 (80) 94 Nasal Cannula 2.00 08/21/17 19:26 94 Nasal Cannula 3.00 08/21/17 19:22 98.2 104 20 99/68 (78) 93 Nasal Cannula 2.00 08/21/17 19:00 114 08/21/17 18:00 101 11 104/69 (81) 94 Nasal Cannula 2.00 08/21/17 17:00 96 24 114/75 (88) 95 Nasal Cannula 2.00 08/21/17 16:33 100.8 93 24 113/77 (89) 93 Nasal Cannula 2.00 08/21/17 16:00 Nasal Cannula 2.00 08/21/17 15:00 97 25 132/81 (98) 96 Nasal Cannula 2.00 08/21/17 14:46 98 Nasal Cannula 2.00 08/21/17 14:41 87 96 28 08/21/17 14:00 86 25 107/76 (86) 96 Nasal Cannula 2.00 08/21/17 13:00 87 08/21/17 13:00 90 42 114/73 (87) 100 Nasal Cannula 2.00 08/21/17 12:00 98.4 90 25 110/79 (89) 97 Nasal Cannula 2.00 08/21/17 12:00 Nasal Cannula 2.00 08/21/17 11:00 81 14 109/72 (84) 95 Nasal Cannula 2.00 I & O 08/23/17 07:00 Intake Total 150 ml Balance 150 ml General Appearance: No Apparent Distress, WD/WN, Chronically ill, Obese HEENT: PERRL/EOMI, Normal ENT Inspection, Pharynx Normal Neck: Full Range of Motion, Normal Inspection, Non Tender, Supple, Carotid Bruit Respiratory: Chest Non Tender, Normal Breath Sounds, No Accessory Muscle Use, No Respiratory Distress, Decreased Breath Sounds Cardiovascular: Regular Rate, Rhythm, No Edema, No Gallop, No JVD, No Murmur, Normal Peripheral Pulses Extremity: Normal Capillary Refill, Normal Inspection, Normal Range of Motion, Non Tender, No Calf Tenderness, No Pedal Edema Neurologic/Psychiatric: Alert, Oriented x3, No Motor/Sensory Deficits, Normal Mood/Affect Skin: Normal Color, Warm/Dry Lymphatic: No Adenopathy Results Lab Laboratory Tests 08/21/17 09:19 08/22/17 04:09 Assessment/Plan Assessment/Plan Acute PE -Lovenox 1mg/KG -Will change to PO tomorrow -oxygen Dyspnea Transfer to 4th floor. Clinical Quality Measures DVT/VTE Risk/Contraindication: Risk Factor Score Per Nursin RFS Level Per Nursing on Admit: 4+=Very High SHAD DUQUE DO Aug 22, 2017 10:32
--- NOTE | 2017-08-22 11:41 | Progress Note-Hospitalist ---
Progress Note HPI/CC on Admission CC: Pulmonary embolism with pulmonary infarct with hypoxia HPI: This is a 56-year-old white male recently diagnosed with hepatitis C from the [facility] that presented to the [facility] emergency room with complaints of chest pain and shortness of breath. He does have a remote history of an isolated incidence of atrial fibrillation and a prior colon resection in 2010 but reports that the chest pain or shortness of breath was abrupt in onset and was found to have pulmonary embolism with pulmonary infarction with hypoxia requiring transfer to higher level of care. Currently he is doing well chest pain is tolerable but requiring 2 L of oxygen to maintain O2 sat of 93 percent. Pulmonology was consulted to assist in pulmonary infarction management and pain control will be maintained along with Lovenox switched over to oral anticoagulation tomorrow. Home medications were reconciled. He does report that he had a massive clot in the intestines in 2010 requiring resection of the intestine affected but has not had a history of other blood clots in the past. He has no recent travel and started on no new medication and he is actually ambulatory at home. Bilateral lower extremity ultrasounds were obtained revealing negative DVT. Progress Notes/Assess & Plan Date Seen 08/22/17 Time Seen by Provider: 11:00 Admission Dx/Process Assessment: Acute pulmonary embolism with pulmonary infarction and hypoxia Diagonsis/Assessment & Plan Very difficult to motivate Appreciate Dr Fox's consultation Lovenox until starting PO anti-coagulation tomorrow Moving to the floor Needs to ambulate and get more motivated because he will be set for DC tomorrow AFVSS, Pleasant, flat affect RRR, CTAB diminished on right No edema Assessment: Acute pulmonary embolism with pulmonary infarction and hypoxia Plan: Anti-coagulation Pain control O2 Home meds Ambulate PT Home O2 evaluation PO anti-coagulation tomorrow Diff to motivate Diagnosis/Problems Diagnosis/Problems (1) Pulmonary embolism and infarction Status: Acute Assessment & Plan: Lovenox and pain control (2) Hypoxia Status: Acute Assessment & Plan: O2 maintained (3) Intestine thrombosis Status: Resolved Assessment & Plan: Indicating underlying hypercoagulable state (4) Post-splenectomy Status: Chronic (5) Back pain Status: Chronic Qualifiers: Qualified Codes: M54.5 - Low back pain; G89.29 - Other chronic pain (6) GERD (gastroesophageal reflux disease) Status: Chronic Assessment & Plan: On PPI Qualifiers: Qualified Codes: K21.9 - Gastro-esophageal reflux disease without esophagitis (7) Hepatitis C Status: Chronic Qualifiers: Qualified Codes: B19.20 - Unspecified viral hepatitis C without hepatic coma JUAN MANUEL EVANS DO Aug 22, 2017 11:41
[2017-08-22] MEDS: LACTULOSE SYRUP 10GM/15ML (ENULOSE) 30ML UDC PO SCH ×2 (12:04→20:07)
[2017-08-22] MEDS ORDERED: PRAZ1CAP PO (12:15)
[2017-08-22] MEDS ORDERED: DULO60CA58 PO (12:15)
[2017-08-22] MEDS ORDERED: PANT40TA3 PO (12:15)
[2017-08-22] MEDS ORDERED: ALPR1TAB7 PO (12:15)
[2017-08-22] MEDS ORDERED: ARIP5TAB20 PO (12:15)
--- NOTE | 2017-08-22 13:04 | Cardiology Progress Note ---
Cardiology SOAP Progress Note Subjective: Mild occasional pleuritic chest pain. Objective: I&O/Vital Signs Vital Sign - Last 12Hours 08/22/17 08/22/17 08/22/17 08/22/17 03:00 04:00 04:00 05:00 Pulse 83 86 80 Resp 15 17 14 B/P (MAP) 98/61 (73) 95/74 (81) 97/65 (76) Pulse Ox 93 94 96 O2 Delivery Nasal Cannula Nasal Cannula Nasal Cannula Nasal Cannula O2 Flow Rate 2.00 2.00 2.00 2.00 08/22/17 08/22/17 08/22/17 08/22/17 06:00 07:00 07:00 08:10 Pulse 79 82 80 Resp 17 B/P (MAP) 99/66 (77) 97/70 (79) Pulse Ox 96 94 O2 Delivery Nasal Cannula Nasal Cannula Nasal Cannula O2 Flow Rate 2.00 2.00 2.00 08/22/17 08/22/17 08/22/17 08/22/17 08:15 09:00 10:00 11:00 Temp 99.1 Pulse 85 79 83 Resp 17 14 26 B/P (MAP) 93/66 (75) 97/72 (80) 104/73 (83) Pulse Ox 93 96 95 O2 Delivery Nasal Cannula Nasal Cannula Nasal Cannula Nasal Cannula O2 Flow Rate 3.00 3.00 3.00 3.00 08/22/17 08/22/17 11:50 11:50 Temp 98.7 Pulse 91 Resp 20 B/P (MAP) 108/70 (83) Pulse Ox 94 O2 Delivery Nasal Cannula Nasal Cannula O2 Flow Rate 3.00 3.00 Weight (Pounds): 221 Weight (Ounces): 1.0 Weight (Calculated Kilograms): [id number] Constitutional: No appears stated age, No AAO x 3, No apparent distress, No PERRL, No well-developed, No well-nourished, No other Respiratory: No accessory muscle use, No respiratory distress, No chest tender , No chest expansion is symmetric, No chest is bilaterally symmetric, No lungs clear to percussion, No lungs clear to auscultation, No crackles, No rhonchi, No rales, No stridor, No wheezing, No pleural rub, No other Cardiovascular: regular rate-rhythm, S1 and S2 Gastrointestional: No tender, No soft, No round, No distended, No pulsatile mass, No organomegaly, No guarding, No rebound, No tenderness, No hernia, No mass, No audible bowel sounds, No abnormal bowel sounds, No abdominal bruits, No spleenomegaly, No other Extremities: No normal range of motion, No non-tender, No normal inspection, No pedal edema, No calf tenderness, No normal capillary refill, No pelvis stable , No calf tenderness, No inflammation, No pedal edema, No slow capillary refill , No swelling, No other, No abrasion, No clubbing, No cyanosis, No ecchymosis, No laceration, No no lower extremity edema bilateral, No significant edema, No tenderness, No wound Neurologic/Psychiatric: No gas adjuster II-XII nml as tested, No no motor/sensory deficits, No alert, No normal mood/affect, No oriented x 3, No abnormal cerebellar tests, No abnormal gas adjuster II-XII, No abnormal gait, No aphasia, No EOM palsy, No facial droop, No motor weakness, No sensory deficit, No depressed affect, No disoriented x 3, No other, No grossly intact, No power is 5/5 both on sides Skin: No normal color, No warm/dry, No cyanosis, No cool, No diaphoresis, No damp, No ecchymosis, No jaundice, No mottled, No pallor, No rash, No tattoos/ piercings, No ulcerations, No rash on exposed areas, No ulcerations on exposed areas, No other Results/Procedures: Labs Laboratory Tests 08/22/17 04:09: White Blood Count 9.8, Red Blood Count 4.70, Hemoglobin 13.3, Hematocrit 40, Mean Corpuscular Volume 86, Mean Corpuscular Hemoglobin 28, Mean Corpuscular Hemoglobin Concent 33, Red Cell Distribution Width 13.4, Platelet Count 360, Mean Platelet Volume 10.4, Neutrophils (%) (Auto) 52, Lymphocytes (%) (Auto) 20 , Monocytes (%) (Auto) 21H, Eosinophils (%) (Auto) 6, Basophils (%) (Auto) 1, Neutrophils # (Auto) 5.1, Lymphocytes # (Auto) 1.9, Monocytes # (Auto) 2.1H, Eosinophils # (Auto) 0.6H, Basophils # (Auto) 0.1, Sodium Level 137, Potassium Level 3.9, Chloride Level 105, Carbon Dioxide Level 27, Anion Gap 5, Blood Urea Nitrogen 15, Creatinine 1.10, Estimat Glomerular Filtration Rate > 60, BUN/ Creatinine Ratio 14, Glucose Level 99, Calcium Level 8.5, Phosphorus Level 3.0, Magnesium Level 1.8 Microbiology 08/21/17 MRSA Screen - Final, Complete MRSA not isolated A/P: Assessment/Dx: pulmonary embolism, Paroxysmal atrial fibrillation, History of splenectomy, History of neck fusion Plan: Pulmonary embolism: Patient is on Lovenox. Will recommend changing to Eliquis. etiology of pulmonary embolism unclear. No inciting factor. May need workup for hypercoagulable state. Defer to Dr. Fox and Dr. Mays. Echocardiogram shows mild RV enlargement with normal RV systolic function. Patient complains of having chest discomfort in the last few months. He may be a candidate for pharmacological nuclear stress testing as an outpatient. I have offered him that I can follow him for cardiology as an outpatient. Paroxysmal atrial fibrillation: one episode 2 years ago. No further episodes according to the patient. CHADSVASC score is 0. History of splenectomy: no acute issues. History of neck fusion: no acute issues. Thank you for your consultation. Please call me if you have any questions. Michael Patterson MD, FACP, FACC, FSCAI, FHRS, CCDS Interventional Cardiology Cardiac Electrophysiology Vascular Medicine and Endovascular Interventions Kitty PATTERSON MD Aug 22, 2017 1:04 pm
[2017-08-22] MEDS: morphine INJ 4 MG/ML 1 ML (VIAL/SYRINGE) IVP PRN (13:57)
[2017-08-22] MEDS: HYDROcodone/APAP 5 MG/325 MG (LORTAB) TAB PO PRN (15:33)
[2017-08-22] MEDS: POLYETHYLENE GLYCOL 17 GM (MIRALAX) PACK PO SCH (20:07)
[2017-08-22] MEDS: ALPRAZolam 1 MG (XANAX) TAB PO PRN (20:10)
[2017-08-23] VITALS: BP 103/53
[2017-08-23] MEDS: HYDROcodone/APAP 5 MG/325 MG (LORTAB) TAB PO PRN ×2 (02:58→07:46)
[2017-08-23] MEDS: NS IV 1000 ML 1,000 ML IV SCH (02:58)
[2017-08-23] MEDS: ENOXAPARIN 100 MG/1 ML (LOVENOX) SYR SC SCH (02:59)
[2017-08-23 03:19] VITALS: BP 100/58
[2017-08-23] MEDS: PANTOPRAZOLE 40 MG (PROTONIX) TAB PO SCH (05:17)
[2017-08-23] MEDS: POLYETHYLENE GLYCOL 17 GM (MIRALAX) PACK PO SCH ×3 (07:45→21:21)
[2017-08-23] MEDS: ASPIRIN E.C. 81 MG (ECOTRIN) TAB PO SCH (07:45)
[2017-08-23] MEDS: MELOXICAM 7.5 MG (MOBIC) TABLET PO SCH (07:45)
[2017-08-23] MEDS: AMITRIPTYLINE 25 MG (ELAVIL) TAB PO SCH (07:46)
[2017-08-23] MEDS: LACTULOSE SYRUP 10GM/15ML (ENULOSE) 30ML UDC PO SCH ×3 (07:47→21:21)
[2017-08-23 07:57] VITALS: BP 119/72
--- NOTE | 2017-08-23 08:53 | Cardiology Progress Note ---
Subjective Date Seen by Provider: Aug 23, 2017 Time Seen by Provider: 08:55 Subjective/Events-last exam Patient sitting up in bed. Complaining of chest pain with cough and deep inspiration. Review of Systems General: No Night Sweats, No Fatigue, No Malaise HEENT: No Visual Changes, No Dysphasia Pulmonary: Dyspnea, Cough Cardiovascular: Chest Pain, No: Palpitations, Paroxysmal Noc. Dyspnea, Edema Gastrointestinal: No: Nausea, Vomiting Genitourinary: No Dysuria, No Frequency Musculoskeletal: No: neck pain, back pain Neurological: No: Weakness, Numbness, Change in speech, Confusion Objective-Cardiology Exam Last Set of Vital Signs Vital Signs 08/21/17 08/23/17 14:41 07:57 Temp 97.9 Pulse 86 Resp 22 B/P (MAP) 119/72 (88) Pulse Ox 95 O2 Delivery Nasal Cannula O2 Flow Rate 3.00 FiO2 28 Capillary Refill : I&O Intake and Output 08/24/17 00:00 Intake Total 1222 ml Balance 1222 ml Intake Oral 222 ml IV Total 1000 ml # Voids 2 General: Alert, Oriented X3, Cooperative HEENT: Atraumatic, PERRLA Neck: Supple, No JVD, No Thyromegaly Lungs: Other (decreased breath sounds RLL) Heart: Regular Rate, Normal S1, Normal S2 Abdomen: Normal Bowel Sounds, Soft Extremities: No Clubbing, No Edema Skin: No Rashes, No Significant Lesion Neuro: Normal Gait, Normal Speech, Cranial Nerves 3-12 NL Psych/Mental Status: Mental Status NL, Mood NL A/P-Cardiology Admission Diagnosis PE CAD CP PAF Assessment/Plan Pulmonary embolism: Patient is on Lovenox. Will recommend changing to Eliquis. etiology of pulmonary embolism unclear. No inciting factor. May need workup for hypercoagulable state. Defer to Dr. Fox and Dr. Mays. Echocardiogram shows mild RV enlargement with normal RV systolic function. Nonobstructive CAD- underwent cardiac catheterization by Dr. Maria in 2014 revealing 40 percent ostial LAD, 40 percent proximal LAD. Otherwise nonobstructive disease. Continue to monitor. Patient complains of having chest discomfort in the last few months. He may be a candidate for pharmacological nuclear stress testing as an outpatient. Continue to monitor. Paroxysmal atrial fibrillation/flutter: one episode in 2014, s/p DARINEL with successful cardioversion. No further episodes according to the patient. CHADSVASC score is 0. History of splenectomy: no acute issues. History of neck fusion: no acute issues. Clinical Quality Measures DVT/VTE Risk/Contraindication: Risk Factor Score Per Nursin RFS Level Per Nursing on Admit: 4+=Very High DANGELO RIVERO Aug 23, 2017 08:53
--- NOTE | 2017-08-23 09:05 | Physical Therapy Evaluation ---
PT Evaluation-General Medical Diagnosis Admission Date Aug 21, 2017 at 08:27 Medical Diagnosis: PE, Hypoxia Onset Date: Aug 22, 2017 Therapy Diagnosis Therapy Diagnosis: weakness Height/Weight Height (Feet): 6 Height (Inches): 0.00 Weight (Pounds): 223 Weight (Ounces): 6.0 Precautions Precautions/Isolations: Contact Isolation Weight Bear Status Right Lower Extremity: Right Full Weight Bearing Left Lower Extremity: Left Full Weight Bearing Referral Reason for Referral: Evaluation/Treatment Medical History Pertinent Medical History: Atrial Fib, Arthritis, Diverticulitis Additional Medical History appendectomy, DVT, reflux, hepatitis C, DDD, anxiety Social History Home: Single Level Current Living Status: Alone Entry Into Home: Level Entry Prior/Core FIM Prior Level of Function Functional [place] Measure 0=Not Assessed/NA 4=Minimal Assistance 1=Total Assistance 5=Supervision or Setup 2=Maximal Assistance 6=Modified [place] 3=Moderate Assistance 7=Complete [place] Bed Mobility: 7 Transfers (B,C,W/C) (FIM): 7 Gait: 7 Locomotion: 7 PT Evaluation-Current Subjective Patient states he is doing okay today. He agrees to PT. He states he is feeling fine. He just wants to get over this cough before it gets worse. Pain Numeric Pain Scale: 0-No Pain Location: No Pain Reported Pt/Family Goals Patient hopes to get over current illness in order to return home. Objective Patient Orientation: Normal For Age Problem Solving: Good Attachments: IV ROM/Strength ROM Upper Extremities WNL ROM Lower Extremities WNL Strength Upper Extremities WNL Strength Lower Extremities WNL Integumentary/Posture Integumentary intact Bowel Incontinence: No Bladder Incontinence: No Neuromuscular (Tone, Coordination, Reflexes) Normal Sensory Vision: Functional Hearing: Functional Hand Dominance: Right Sensation Right Upper Extremit: Intact Sensation Left Upper Extremity: Intact Sensation Right Lower Extremit: Intact Sensation Left Lower Extremity: Intact Transfers Functional [place] Measure 0=Not Assessed/NA 4=Minimal Assistance 1=Total Assistance 5=Supervision or Setup 2=Maximal Assistance 6=Modified [place] 3=Moderate Assistance 7=Complete [place] Transfers (B, C, W/C) (FIM): 7 Scootin Rollin Supine to/from Sit: 7 Sit to/from Stand: 7 Patient is able to transfer independently. He states he has gotten up previously to walk by himself to make sure he can perform ambulation. Gait Mode of Locomotion: Walk Anticipated Mode of Locomotion: Walk Gait (FIM): 7 Distance: >500' Gait Level of Assist: 7 Comments/Gait Description Patient ambulates independently pushing his own IV pole. No assistance from PT is required. Balance Sitting Static: Normal Sitting Dynamic: Normal Standing Static: Normal Standing Dynamic: Normal Assessment/Needs This patient is able to perform all bed mobility and ambulation independently. Patient is set for possible dismissal from hospital on this date. Further skilled PT is no longer required on this date. Rehab Potential: Good PT Plan Treatment/Plan Treatment Plan: Discontinue PT Treatment Plan: Other Treatment Duration: Aug 23, 2017 Frequency: Estimated Hrs Per Day: Other Patient and/or Family Agrees t: Yes Patient is dismissed from PT intervention on this date. Safety Risks/Education Patient Education: Gait Training, Reviewed Precautions, Safety Issues Teaching Recipient: Patient Teaching Methods: Demonstration, Discussion Response to Teaching: Verbalize Understanding, Return Demonstration Discharge Recommendations Therapy D/C Recommendations: Home Independently Time/GCodes Time In: 822 Time Out: 836 Total Billed Treatment Time: 14 Total Billed Treatment 1 visit EVM 14 min RAMIRO HOUSTON PT Aug 23, 2017 09:05
--- NOTE | 2017-08-23 09:16 | Cardiology Progress Note ---
Subjective Date Seen by Provider: Aug 23, 2017 Time Seen by Provider: 09:14 Subjective/Events-last exam Patient is laying down in bed, complaining of cough, no chest pain at this time , no shortness of breath. Events since admission were reviewed Objective-Cardiology Exam Last Set of Vital Signs Vital Signs 08/21/17 08/23/17 14:41 07:57 Temp 97.9 Pulse 86 Resp 22 B/P (MAP) 119/72 (88) Pulse Ox 95 O2 Delivery Nasal Cannula O2 Flow Rate 3.00 FiO2 28 Capillary Refill : I&O Intake and Output 08/24/17 00:00 Intake Total 1222 ml Balance 1222 ml Intake Oral 222 ml IV Total 1000 ml # Voids 2 General: Alert, Oriented X3, Cooperative HEENT: Atraumatic, PERRLA Neck: Supple, No JVD, No Thyromegaly Lungs: Other (decreased breath sounds RLL) Heart: Regular Rate, Normal S1, Normal S2 Abdomen: Normal Bowel Sounds, Soft Extremities: No Clubbing, No Edema Skin: No Rashes, No Significant Lesion Neuro: Normal Gait, Normal Speech, Cranial Nerves 3-12 NL Psych/Mental Status: Mental Status NL, Mood NL A/P-Cardiology Admission Diagnosis PE CAD CP PAF Assessment/Plan Pulmonary embolism, Echocardiogram shows mild RV enlargement with normal RV systolic function. Has been on Lovenox, I will change to Eliquis, initiate workup for hypercoagulable state, monitor as an outpatient Nonobstructive CAD- underwent cardiac catheterization by Dr. Maria in 2014 revealing 40 percent ostial LAD, 40 percent proximal LAD. Otherwise nonobstructive disease. Continue to monitor. Patient complains of having chest discomfort in the last few months, follow-up as an outpatient. Paroxysmal atrial fibrillation/flutter: one episode in 2014, s/p DARINEL with successful cardioversion. No further episodes according to the patient. CHADS- VASc score is 0. History of splenectomy: no acute issues. History of neck fusion: no acute issues. History of depression, anxiety. Followed by a psychiatrist. Clinical Quality Measures DVT/VTE Risk/Contraindication: Risk Factor Score Per Nursin RFS Level Per Nursing on Admit: 4+=Very High GILES MARIA MD Aug 23, 2017 09:16
[2017-08-23] MEDS ORDERED: INFLUENZA TRIvalent 2017-2018 0.5 ML/45 MCG SYR IM ONE (09:29)
--- NOTE | 2017-08-23 11:05 | Progress Note (SOAP) ---
Subjective Subjective/Events-last exam States that he is still having pain in his chest when he is coughing. Tolerating PO diet. States that he has been out of bed yesterday but not today. Still feeling short of breath Review of Systems Date Seen by Provider: Aug 23, 2017 Time Seen by Provider: 10:15 General: Chills (1015) Pulmonary: Dyspnea, Cough, Pleuritic Chest Pain Cardiovascular: Chest Pain, No: Palpitations, Orthopnea, Edema Gastrointestinal: No: Nausea, Vomiting, Abdominal Pain Objective Exam Last Set of Vital Signs Vital Signs Date Time Temp Pulse Resp B/P (MAP) Pulse Ox O2 Delivery O2 Flow Rate FiO2 08/23/17 07:57 97.9 86 22 119/72 (88) 95 Nasal Cannula 3.00 08/21/17 14:41 28 Capillary Refill : I&O Intake and Output 08/24/17 00:00 Intake Total 1222 ml Balance 1222 ml Intake Oral 222 ml IV Total 1000 ml # Voids 2 General: Alert, Oriented X3, Cooperative, No Acute Distress Lungs: Clear to Auscultation Heart: Regular Rate, No Murmurs Abdomen: Normal Bowel Sounds, Soft, No Tenderness, No Masses Extremities: No Edema, Normal Pulses, No Tenderness/Swelling Neuro: Strength at 5/5 X4 Ext, Sensation Intact, Cranial Nerves 3-12 NL Results/Procedures Lab Microbiology 08/21/17 MRSA Screen - Final, Complete MRSA not isolated Assessment/Plan Assessment/Plan Plan 56 yo M admitted for hypoxia found to have acute PE with possible infarction plan Acute Pulmonary Embolism with possible infarction - Echo showed mild R heart strain - Started PO anticoagulation - Does no qualify for home oxygen - Patient has h/o intestinal thrombus, needs outpatient workup for hypercoag state Dispo: Took over care from hospitalist today as patient sees Dr Roach, Plan to d /c home tomorrow Clinical Quality Measures DVT/VTE Risk/Contraindication: Risk Factor Score Per Nursin RFS Level Per Nursing on Admit: 4+=Very High NIC ANGULO MD Aug 23, 2017 11:05
[2017-08-23 12:00] VITALS: BP 106/71
[2017-08-23 15:48] VITALS: BP 91/53
[2017-08-23 19:14] VITALS: BP 108/63
[2017-08-23] MEDS: APIXABAN 5 MG (ELIQUIS) TABLET PO SCH (21:11)
[2017-08-23] MEDS: ALPRAZolam 1 MG (XANAX) TAB PO PRN (21:16)
[2017-08-24 00:57] VITALS: BP 122/75
[2017-08-24 04:25] VITALS: BP 123/81
[2017-08-24] MEDS: PANTOPRAZOLE 40 MG (PROTONIX) TAB PO SCH (06:09)
[2017-08-24] MEDS: HYDROcodone/APAP 5 MG/325 MG (LORTAB) TAB PO PRN ×2 (06:37→12:33)
[2017-08-24 08:00] VITALS: BP 134/83
--- NOTE | 2017-08-24 08:04 | Cardiology Progress Note ---
Subjective Date Seen by Provider: Aug 24, 2017 Time Seen by Provider: 08:03 Subjective/Events-last exam Patient is laying down in bed, still having mild chest pain, complaining of cough productive of yellowish sputum with mild hemoptysis Review of Systems General: No Chills, No Night Sweats, No Fatigue, No Malaise, No Appetite, No Other HEENT: No Head Aches, No Visual Changes, No Eye Pain, No Ear Pain, No Dysphasia , No Sinus Congestion, No Post Nasal Drip, No Sore Throat, No Other Pulmonary: Dyspnea, Cough, No Pleuritic Chest Pain, No Other Cardiovascular: Chest Pain, No: Palpitations, Orthopnea, Paroxysmal Noc. Dyspnea, Edema, Lt Headedness, Other Objective-Cardiology Exam Last Set of Vital Signs Vital Signs 08/21/17 08/23/17 08/24/17 14:41 21:00 04:25 Temp 98.4 Pulse 89 Resp 18 B/P (MAP) 123/81 (95) Pulse Ox 94 O2 Delivery Room Air O2 Flow Rate 3.00 FiO2 28 Capillary Refill : I&O Intake and Output 08/24/17 00:00 Intake Total 4514 ml Balance 4514 ml Intake Oral 2514 ml IV Total 2000 ml # Voids 10 # Bowel Movements 2 General: Alert, Oriented X3, Cooperative, No Acute Distress HEENT: Atraumatic, PERRLA Neck: Supple, No JVD, No Thyromegaly Lungs: Clear to Auscultation Heart: Regular Rate, No Murmurs Abdomen: Normal Bowel Sounds, Soft, No Tenderness, No Masses Extremities: No Edema, Normal Pulses, No Tenderness/Swelling Skin: No Rashes, No Significant Lesion Neuro: Strength at 5/5 X4 Ext, Sensation Intact, Cranial Nerves 3-12 NL Psych/Mental Status: Mental Status NL, Mood NL Results Lab Laboratory Tests Test 08/23/17 11:01 Range/Units A/P-Cardiology Admission Diagnosis PE CAD CP PAF Assessment/Plan Pulmonary embolism, Echocardiogram shows mild RV enlargement with normal RV systolic function. Tolerating Eliquis well. Factor V Leiden is pending. If it is negative patient will need full panel for hypercoagulable state. Nonobstructive CAD- underwent cardiac catheterization by Dr. Maria in 2014 revealing 40 percent ostial LAD, 40 percent proximal LAD. Otherwise nonobstructive disease. Continue to monitor. Patient complains of having chest discomfort in the last few months, follow-up as an outpatient. Paroxysmal atrial fibrillation/flutter: one episode in 2014, s/p DARINEL with successful cardioversion. No further episodes according to the patient. CHADS- VASc score is 0. History of splenectomy: no acute issues. History of neck fusion: no acute issues. History of depression, anxiety. Followed by a psychiatrist. Clinical Quality Measures DVT/VTE Risk/Contraindication: Risk Factor Score Per Nursin RFS Level Per Nursing on Admit: 4+=Very High GILES MARIA MD Aug 24, 2017 08:04
[2017-08-24] MEDS: APIXABAN 5 MG (ELIQUIS) TABLET PO SCH (09:29)
[2017-08-24] MEDS: MELOXICAM 7.5 MG (MOBIC) TABLET PO SCH (09:29)
[2017-08-24] MEDS: AMITRIPTYLINE 25 MG (ELAVIL) TAB PO SCH ×2 (09:29→09:41)
[2017-08-24] MEDS: LACTULOSE SYRUP 10GM/15ML (ENULOSE) 30ML UDC PO SCH (09:39)
[2017-08-24] MEDS: POLYETHYLENE GLYCOL 17 GM (MIRALAX) PACK PO SCH (09:40)
--- NOTE | 2017-08-24 10:27 | Discharge Summary ---
Diagnosis/Chief Complaint Date of Admission Aug 21, 2017 at 08:27 Date of Discharge Discharge Summary-Simple/Stand Consultations Discharge Physical Examination Allergies: Coded Allergies: No Known Drug Allergies (Verified , 07/14/17) Vitals & I&Os Vital Sign - Last 12Hours Date Time Temp Pulse Resp B/P (MAP) Pulse Ox O2 Delivery O2 Flow Rate FiO2 08/24/17 08:00 98.0 99 20 134/83 (100) 93 Nasal Cannula 3.00 08/21/17 14:41 28 Intake and Output 08/24/17 00:00 Intake Total 2292 ml Balance 2292 ml Hospital Course See final discharge diagnosis. Discharge Instructions to patient/family Please see electronic discharge instructions given to patient. Discharge Medications Reviewed and agree with Discharge Medication list on patient's Discharge Instruction sheet Clinical Quality Measures DVT/VTE Risk/Contraindication: Risk Factor Score Per Nursin RFS Level Per Nursing on Admit: 4+=Very High NIC ANGULO MD Aug 24, 2017 10:27
[2017-08-24] MEDS ORDERED: APIX5TAB PO (10:29)
--- NOTE | 2017-08-24 10:33 | Discharge Instructions ---
Discharge [facility] Discharge Medications New, Converted or Re-Newed RX: Transmitted to Pharmacy New Medications: Apixaban (Eliquis) 5 Mg Tablet 10 MG PO BID, #30 TAB Continued Medications: Alprazolam (Alprazolam) 1 Mg Tablet 1 MG PO TID PRN for ANXIETY Aspirin (Aspir 81) 81 Mg Tablet.dr 81 MG PO DAILY, TAB Duloxetine HCl (Duloxetine HCl) 60 Mg Capsule.dr 60 MG PO DAILY Pantoprazole Sodium (Pantoprazole Sodium) 40 Mg Tablet.dr 40 MG PO DAILY Discontinued Medications: Aripiprazole (Aripiprazole) 5 Mg Tablet 5 MG PO DAILY Prazosin HCl (Minipress) 1 Mg Capsule 1 MG PO HS Patient Instructions Goal/Follow Up Appt: You will need to find a new primary care doctor You will have a follow up appt with Dr Wilder with cardiology Patient Instructions: - It is very important that you take your blood thinner Return to The Hospital For: - Worsening shortness of breath or chest pain Activity & Diet Discharge Diet: Cardiac Diet Activity as Tolerated: Yes Orders-Post D/C & Referrals Pneu Vac Indicated: Yes Copy Copies To 1: NAHOMI FLORES MD; Kitty WILDER MD, HOLLY R MD Aug 24, 2017 10:33
--- NOTE | 2017-08-24 11:43 | Pulmonary Progress Note ---
Subjective Time Seen by Provider: 11:42 Subjective/Events-last exam No complications noted. Exam Exam Vital Signs Date Time Temp Pulse Resp B/P (MAP) Pulse Ox O2 Delivery O2 Flow Rate FiO2 08/24/17 10:21 96 Room Air 08/24/17 10:21 87 96 08/24/17 08:00 98.0 99 20 134/83 (100) 93 Nasal Cannula 3.00 08/24/17 04:25 98.4 89 18 123/81 (95) 94 Room Air 08/24/17 00:57 99.5 95 18 122/75 (91) 92 Room Air 08/23/17 21:32 92 Room Air 08/23/17 21:00 Nasal Cannula 3.00 08/23/17 19:25 99.1 08/23/17 19:14 97.9 94 22 108/63 (78) 92 Room Air 08/23/17 15:48 100.0 81 22 91/53 (66) 94 Room Air 08/23/17 14:47 Nasal Cannula 3.00 08/23/17 12:00 98.0 91 16 106/71 (83) 90 Room Air I & O 08/24/17 07:00 Intake Total 2514 ml Balance 2514 ml General Appearance: No Apparent Distress, WD/WN, Chronically ill, Obese HEENT: PERRL/EOMI, Normal ENT Inspection, Pharynx Normal Neck: Full Range of Motion, Normal Inspection, Non Tender, Supple, Carotid Bruit Respiratory: Chest Non Tender, Normal Breath Sounds, No Accessory Muscle Use, No Respiratory Distress, Decreased Breath Sounds Cardiovascular: Regular Rate, Rhythm, No Edema, No Gallop, No JVD, No Murmur, Normal Peripheral Pulses Extremity: Normal Capillary Refill, Normal Inspection, Normal Range of Motion, Non Tender, No Calf Tenderness, No Pedal Edema Neurologic/Psychiatric: Alert, Oriented x3, No Motor/Sensory Deficits, Normal Mood/Affect Skin: Normal Color, Warm/Dry Lymphatic: No Adenopathy Assessment/Plan Assessment/Plan 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 -continue Eliquis -oxygen Dyspnea -monitor 232 Clinical Quality Measures DVT/VTE Risk/Contraindication: Risk Factor Score Per Nursin RFS Level Per Nursing on Admit: 4+=Very High SHAD DUQUE DO Aug 24, 2017 11:43
[2017-08-24 12:00] VITALS: BP 122/75
[2017-08-24 13:03] LABS: FACTOR 5 (LEIDEN) MUTATION Negative (Negative)
[2017-08-24 16:04] LABS: FACTOR 5 LEIDEN INTERP See Footnote
[2017-08-25 09:02] LABS: FACTOR II 20210 MUTATIONC Negative (NEG)
== END 2017-08-24 13:45 | disposition home or self-care (01) | DRG 176 ==
LOC: ICU 08:27 → 4TH 08-22 11:50
PROVIDERS: ADMIT Internal Medicine; ATTEND Internal Medicine
DX: I26.99 Other pulmonary embolism without acute cor pulmonale (principal); B18.2 Chronic viral hepatitis C; I48.0 Paroxysmal atrial fibrillation; I25.10 Atherosclerotic heart disease of native coronary artery without angina pectoris; R09.02 Hypoxemia; R07.89 Other chest pain; F41.9 Anxiety disorder, unspecified; F32.9 Major depressive disorder, single episode, unspecified; Z87.891 Personal history of nicotine dependence; Z86.718 Personal history of other venous thrombosis and embolism; K21.9 Gastro-esophageal reflux disease without esophagitis; Z90.81 Acquired absence of spleen; Z98.1 Arthrodesis status; Z23 Encounter for immunization
CPT/HCPCS: 36415; 71010; 80048; 80053; 81240; 81241; 83735; 83880; 84100; 84484; 85025; 85027; 85379; 85610; 85730; 87081; 93306; 93970; 94664; 94760; 94761

== ENCOUNTER 2017-09-01 21:12 | Emergency (ER) | payer MEDICAID ==
[~2017-09-01] VITALS: Ht 182.9 cm; Wt 100.7 kg
[~2017-09-01 21:12] MED LIST changes: +ALPR1TAB7 PO; +APIX5TAB PO; +ARIP5TAB20 PO; +DULO60CA58 PO; +PANT40TA3 PO; +PRAZ1CAP PO
--- OUTSIDE RECORDS SUMMARY | 2017-09-01 21:16 | XMS REPORT | Clinical Summary ---
Author Author [facility] Organization [facility] Address Unknown Phone Unavailable Care Team Providers Care Store Hand Name Role Phone PCP Unavailable Source Comments Some departments are not documenting in the electronic medical record. If you do not see the information that you expected, contact Release of Information in the Health Information Management department at [phone] for further assistance in locating additional records.[facility] Allergies No Known Allergies Current Medications Prescription [...]
[2017-09-01] MEDS ORDERED: ASPIRIN 81 MG CHEW (CHILDREN'S ASA) PO ONE (21:30)
[2017-09-01] MEDS ORDERED: NITROGLYCERIN 0.4 MG SL TABS BTL 25'S SL PRN (21:30)
[2017-09-01 21:54] LABS: ALANINE AMINOTRANSFERASE 31 U/L (0-55); ALBUMIN 3.8 GM/DL (3.2-4.5); ANION GAP 12 MMOL/L (5-14); ASPARTATE AMINO TRANSFERASE 29 U/L (5-34); BILIRUBIN,TOTAL 0.2 MG/DL (0.1-1.0); BLOOD UREA NITROGEN 19 MG/DL (7-18); BUN/CREATININE RATIO 17; CALCIUM 9.2 MG/DL (8.5-10.1); CARBON DIOXIDE 22 MMOL/L (21-32); CHLORIDE 104 MMOL/L (98-107); CREATININE SERUM 1.12 MG/DL (0.60-1.30); GFR ESTIMATED > 60; GLUCOSE 96 MG/DL (70-105); MAGNESIUM 3.1 MG/DL (1.8-2.4); POTASSIUM 5.4 MMOL/L (3.6-5.0); SODIUM 138 MMOL/L (135-145); TOTAL PROTEIN 7.4 GM/DL (6.4-8.2)
[2017-09-01 21:56] LABS: BASOPHILS # (AUTO) 0.1 10^3/uL (0.0-0.1); BASOPHILS % (AUTO) 1 % (0-10); EOSINOPHILS # (AUTO) 0.6 10^3/uL (0.0-0.3); EOSINOPHILS % (AUTO) 5 % (0-10); LYMPHOCYTES # (AUTO) 2.3 X 10^3 (1.0-4.0); LYMPHOCYTES % (AUTO) 19 % (12-44); MEAN CORPUSCULAR HEMOGLOBIN 28 PG (25-34); MEAN CORPUSCULAR HGB CONC 34 G/DL (32-36); MEAN CORPUSCULAR VOLUME 83 FL (80-99); MONOCYTES # (AUTO) 1.8 X 10^3 (0.0-1.0); MONOCYTES % (AUTO) 15 % (0-12); NEUTROPHILS # (AUTO) 7.2 X 10^3 (1.8-7.8); NEUTROPHILS % (AUTO) 60 % (42-75); PLATELET COUNT 653 10^3/uL (130-400); RED CELL DISTRIBUTION WIDTH 14.2 % (10.0-14.5)
[2017-09-01] MEDS ORDERED: IOHEXOL 350 MG/ML 150 ML (OMNIPAQUE 350) VIAL IV ONE (22:00)
[2017-09-01] MEDS ORDERED: NS 100 ML (IVPB) BAG IV ONE (22:00)
[2017-09-01 22:01] LABS: TROPONIN I < 0.30 NG/ML (<0.30)
[2017-09-01 22:03] LABS: INR 0.9 (0.8-1.4); PROTHROMBIN TIME PATIENT 11.8 SEC (12.2-14.7)
[2017-09-01] MEDS ORDERED: RX-CYCLOBENZAPRINE 10 MG (FLEXERIL) TAB PPK#3 PO STA (22:36)
[2017-09-01] MEDS ORDERED: CYCL10TA9 PO (22:41)
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
[2017-09-01] MEDS ORDERED: KETOROLAC 30 MG/ML VIAL IVP ONE (22:45)
[2017-09-01 23:09] VITALS: BP 136/97
--- NOTE | 2017-09-02 06:06 | Diagnostic Imaging Report ---
Clinical indication: Patient with leg pain/cramping and right lower chest pain x5 days. Patient is on blood thinners. Exam: Chest x-ray PA view only. Comparisons: Portable Chest x-ray dated 08/22/2017. Findings: Lungs/pleura: There is improved aeration of both lungs compared to the prior study. There appears to be mild bibasilar atelectasis. There is no definite lung infiltrate seen. There is no pneumothorax. There is no pleural effusion. Mediastinum: Unremarkable. Pulmonary vasculature: Unremarkable. Heart: Unremarkable. Bones/extrathoracic soft tissue: Surgical clips seen overlying the left upper quadrant. Bones show no significant interval abnormality. Impression: 1: There is no radiographic evidence of acute cardiopulmonary process. 2: There is improved aeration of both lungs with mild bibasilar atelectasis present. Dictated by: Dictated on workstation # [id number]
--- NOTE | 2017-09-02 07:48 | Diagnostic Imaging Report ---
PROCEDURE: CT angiography of the chest with contrast. TECHNIQUE: Multiple contiguous axial images were obtained through the chest after uneventful bolus administration of intravenous contrast. Reconstructed CTA MIP acquisitions were also performed. INDICATION: Chest pain. There are no previous CTA chest examinations available for comparison. The plain film examination of the chest performed earlier today at 5:07 AM, noted bibasilar atelectasis/infiltrate and pleural fluid. On this exam, however, the lung bases do seem better aerated. There is only a small amount of atelectasis/infiltrate bilaterally, and there is no pleural effusion. There is a small linear defect within one of the pulmonary arteries to the left upper lobe. This does suggest a pulmonary embolus. The age of this embolus, however, is indeterminate, and this could be chronic in nature. Clinical followup is recommended. There is no other defect within the pulmonary arteries to indicate a pulmonary embolus. The aorta is not abnormally dilated, and there is no sign of a dissection. The heart size is within normal limits. Coronary artery calcifications are evident. There is no mediastinal or hilar adenopathy. The thyroid gland is unremarkable. The bone windows show no evidence for a fracture or for a destructive lesion. The images through the upper abdomen fail to show any sign of an acute abnormality. The postsurgical changes involving the spleen noted on the prior CT abdomen/pelvis exam of 04/10/2011, are again visualized and no different. IMPRESSION: 1. There is a small linear defect in one of the pulmonary arteries to the left upper lobe. This does suggest a pulmonary embolus although the age of this embolus is indeterminate. Clinical followup is recommended. 2. There is no other evidence for a pulmonary embolus or for a dissection. 3. There is mild bibasilar atelectasis/infiltrate. 4. These results were conveyed to the ER by our [employer] service at 2215 hours on 09/01/2017. CRITICAL FINDING Dictated by: Dictated on workstation # [id number]
== END 2017-09-01 23:09 | disposition home or self-care (01) ==
LOC: EDUNIT# 21:12 → ER 21:13
DX: R25.2 Cramp and spasm (principal); I26.99 Other pulmonary embolism without acute cor pulmonale; F41.9 Anxiety disorder, unspecified; M47.9 Spondylosis, unspecified; K21.9 Gastro-esophageal reflux disease without esophagitis; G43.909 Migraine, unspecified, not intractable, without status migrainosus; I48.91 Unspecified atrial fibrillation; Z86.718 Personal history of other venous thrombosis and embolism; Z86.14 Personal history of Methicillin resistant Staphylococcus aureus infection; Z87.891 Personal history of nicotine dependence; Z79.01 Long term (current) use of anticoagulants; Z79.82 Long term (current) use of aspirin
CPT/HCPCS: 36415; 71010; 71275; 80053; 83735; 83880; 84484; 85025; 85610; 85730; 93005; 93041

== ENCOUNTER 2017-09-24 02:03 | Inpatient (IN) | payer MEDICAID ==
[2017-09-24] VITALS (15 sets, daily range): BP systolic 83–143; BP diastolic 71–96
[~2017-09-24] VITALS: Ht 182.9 cm; Wt 102.1 kg
[~2017-09-24 02:03] MED LIST changes: +ACHD5005 PO; -HYDR-3812 PO
[2017-09-24] MEDS ORDERED: DILTIAZEM IV FOR DRIP 125 MG in NS (IVPB) 100 ML IV SCH (05:00)
[2017-09-24] MEDS ORDERED: NS IV 1000 ML 1,000 ML IV SCH ×3 (05:00→11:25)
[2017-09-24 05:05] LABS: BASOPHILS # (AUTO) 0.1 10^3/uL (0.0-0.1); BASOPHILS % (AUTO) 1 % (0-10); EOSINOPHILS # (AUTO) 0.3 10^3/uL (0.0-0.3); EOSINOPHILS % (AUTO) 4 % (0-10); HEMATOCRIT 38 % (40-54); HEMOGLOBIN 14.3 G/DL (13.3-17.7); LYMPHOCYTES # (AUTO) 2.2 X 10^3 (1.0-4.0); LYMPHOCYTES % (AUTO) 23 % (12-44); MEAN CORPUSCULAR HEMOGLOBIN 28 PG (25-34); MEAN CORPUSCULAR HGB CONC 38 G/DL (32-36); MEAN CORPUSCULAR VOLUME 73 FL (80-99); MEAN PLATELET VOLUME 9.3 FL (7.4-10.4); MONOCYTES # (AUTO) 1.5 X 10^3 (0.0-1.0); MONOCYTES % (AUTO) 17 % (0-12); NEUTROPHILS # (AUTO) 5.1 X 10^3 (1.8-7.8); NEUTROPHILS % (AUTO) 56 % (42-75); PLATELET COUNT 376 10^3/uL (130-400); RED BLOOD COUNT 5.15 10^6/uL (4.35-5.85); WHITE BLOOD COUNT 9.2 10^3/uL (4.3-11.0)
[2017-09-24 05:22] LABS: BUN/CREATININE RATIO 18; CALCIUM 8.7 MG/DL (8.5-10.1); CARBON DIOXIDE 23 MMOL/L (21-32); CHLORIDE 107 MMOL/L (98-107); CREATININE SERUM 0.91 MG/DL (0.60-1.30); GFR ESTIMATED > 60; GLUCOSE 102 MG/DL (70-105); MAGNESIUM 2.1 MG/DL (1.8-2.4); POTASSIUM 4.3 MMOL/L (3.6-5.0); SODIUM 140 MMOL/L (135-145)
[2017-09-24] MEDS ORDERED: morphine INJ 4 MG/ML 1 ML (VIAL/SYRINGE) ONE (05:24)
[2017-09-24] MEDS ORDERED: morphine INJ 4 MG/ML 1 ML (VIAL/SYRINGE) IV ONE (06:00)
[2017-09-24] MEDS ORDERED: MAGNESIUM 1 GM/100 ML IVPB 100 ML IV SCH (06:00)
[2017-09-24] MEDS ORDERED: POTASSIUM CL 10MEQ/50ML IVPB 50 ML IV SCH (06:00)
[2017-09-24] MEDS ORDERED: KCL 20 MEQ TAB (K-DUR) PO SCH (06:00)
[2017-09-24] MEDS ORDERED: CATHETER FLUSH 10 ML SYR IV PRN ×2 (07:45→10:45)
[2017-09-24] MEDS ORDERED: INFLUENZA TRIvalent 2017-2018 0.5 ML/45 MCG SYR IM ONE (07:45)
[2017-09-24] MEDS ORDERED: CYCL10TA9 PO (08:25)
[2017-09-24] MEDS ORDERED: APIX5TAB PO (08:25)
[2017-09-24] MEDS ORDERED: ACHD5005 PO (08:25)
--- NOTE | 2017-09-24 08:48 | Diagnostic Imaging Report ---
Portable erect AP chest at 536 hours. INDICATION: Respiratory distress, chest pain. FINDINGS: The heart size is within normal limits and stable when compared to 09/01/2017. The lungs remain generally clear. The coarse bronchovascular markings seen previously are again evident and no different. There is no sign of failure, pneumonia or pleural effusion to indicate an acute abnormality. The mediastinum is not widened. The osseous structures are intact. IMPRESSION: There is no evidence for active disease. When compared to the prior study, there has been no significant change. Dictated by: Dictated on workstation # [id number]
[2017-09-24] MEDS: HYDROcodone/APAP 5 MG/325 MG (LORTAB) TAB PO PRN ×2 (09:16→16:15)
--- NOTE | 2017-09-24 09:36 | Consultation-Cardiology ---
HPI-Cardiology Cardiology Consultation Date of Consultation 09/24/17 Date of Admission Time Seen by Provider: 09:31 Indication: chest pain HPI 56 years old gentleman with history of paroxysmal atrial fibrillation/flutter, had an episode last month. For the past week has been having recurrent episode of palpitation and chest pain described it as pressure in his retrosternal area radiating to the back. Having palpitation. Went to [place] emergency room and noted to be in atrial fibrillation with rapid ventricular response, did not convert after adenosine injection, started on Cardizem and converted spontaneously since then he's been feeling well. He is anxious and asking to go home. Has been having recurrent episodes of chest pain almost on a daily basis described it as dull in nature in the retrosternal area and left side of his chest. Home Medications & Allergies Allergies: Coded Allergies: No Known Drug Allergies (Verified , 07/14/17) Home Medication List Reviewed: Yes KXX-Becvlh-Kazxcq Hx Patient Social History Marital Status: single Alcohol Use: Denies Use Recreational Drug Use: No (DENIES ETOH OR TOBACCO USE) Smoking Status: Former Smoker Type Used: Cigarettes 2nd Hand Smoke Exposure: No Recent Foreign Travel: No Recent Infectious Disease Expo: No Recent Hopitalizations: Yes (08/21-08/24/17 FOR P.E. ) Physical Abuse Screen: No Sexual Abuse: No Immunizations Up To Date Tetanus Booster (TDap): Unknown Date of Influenza Vaccine: Jul 06, 2016 Past Medical History medical history as described below Family Medical History Family Medical Hx noncontributory to his current condition Constitutional: no symptoms reported, see HPI EENTM: see HPI, no symptoms reported Respiratory: see HPI, dyspnea on exertion Cardiovascular: see HPI, chest pain Gastrointestinal: no symptoms reported, see HPI Genitourinary: see HPI Musculoskeletal: no symptoms reported, see HPI Skin: no symptoms reported, see HPI Psychiatric/Neurological: No Symptoms Reported, See HPI Reviewed Test Results Reviewed Test Results Lab Laboratory Tests Test 09/24/17 04:55 Range/Units White Blood Count 9.2 4.3-11.0 10^3/uL Red Blood Count 5.15 4.35-5.85 10^6/uL Hemoglobin 14.3 13.3-17.7 G/DL Hematocrit 38 L 40-54 % Mean Corpuscular Volume 73 L 80-99 FL Mean Corpuscular Hemoglobin 28 25-34 PG Mean Corpuscular Hemoglobin Concent 38 H 32-36 G/DL Red Cell Distribution Width 14.0 10.0-14.5 % Platelet Count 376 130-400 10^3/uL Mean Platelet Volume 9.3 7.4-10.4 FL Neutrophils (%) (Auto) 56 42-75 % Lymphocytes (%) (Auto) 23 12-44 % Monocytes (%) (Auto) 17 H 0-12 % Eosinophils (%) (Auto) 4 0-10 % Basophils (%) (Auto) 1 0-10 % Neutrophils # (Auto) 5.1 1.8-7.8 X 10^3 Lymphocytes # (Auto) 2.2 1.0-4.0 X 10^3 Monocytes # (Auto) 1.5 H 0.0-1.0 X 10^3 Eosinophils # (Auto) 0.3 0.0-0.3 10^3/uL Basophils # (Auto) 0.1 0.0-0.1 10^3/uL Sodium Level 140 135-145 MMOL/L Potassium Level 4.3 3.6-5.0 MMOL/L Chloride Level 107 98-107 MMOL/L Carbon Dioxide Level 23 21-32 MMOL/L Anion Gap 10 5-14 MMOL/L Blood Urea Nitrogen 16 7-18 MG/DL Creatinine 0.91 0.60-1.30 MG/DL Estimat Glomerular Filtration Rate > 60 BUN/Creatinine Ratio 18 Glucose Level 102 70-105 MG/DL Calcium Level 8.7 8.5-10.1 MG/DL Magnesium Level 2.1 1.8-2.4 MG/DL Troponin I < 0.30 <0.30 NG/ML Physical Exam Vital Signs Vital Sign - Last 12Hours 09/24/17 04:30 Temp 97.4 Pulse 74 Resp 19 B/P (MAP) 127/82 (97) Pulse Ox 99 O2 Delivery Room Air Capillary Refill : General Appearance: No Apparent Distress, WD/WN Eyes: Bilateral Eye Normal Inspection, Bilateral Eye PERRL, Bilateral Eye EOMI HEENT: PERRL/EOMI, TMs Normal, Normal ENT Inspection, Pharynx Normal Neck: Full Range of Motion, Normal Inspection, Non Tender, Supple, Carotid Bruit Respiratory: Chest Non Tender, Lungs Clear, Normal Breath Sounds, No Accessory Muscle Use, No Respiratory Distress Cardiovascular: Regular Rate, Rhythm, No Edema, No Gallop, No JVD, No Murmur, Normal Peripheral Pulses Gastrointestinal: Normal Bowel Sounds, No Organomegaly, No Pulsatile Mass, Non Tender, Soft Back: Normal Inspection, No CVA Tenderness, No Vertebral Tenderness Extremity: Normal Capillary Refill, Normal Inspection, Normal Range of Motion, Non Tender, No Calf Tenderness, No Pedal Edema Neurologic/Psychiatric: Alert, Oriented x3, No Motor/Sensory Deficits, Normal Mood/Affect Skin: Normal Color, Warm/Dry Lymphatic: No Adenopathy A/P-Cardiology Admission Diagnosis Chest pain nonspecific etiology Paroxysmal atrial fibrillation Coronary artery disease Back pain Assessment/Plan Chest pain resembling angina, had multiple episode of chest pain. Patient had a cardiac catheterization done in 2014 showing etgf-da-lvufuack disease with 40 percent ostial and proximal LAD otherwise nonobstructive disease, I am planning to start him on antiarrhythmic medication will need to rule out progression of his coronary artery disease, I am planning to proceed with cardiac catheterization Paroxysmal atrial fibrillation/flutter had one episode in 2014 with DARINEL and cardioversion. Had another episode yesterday and questionable for the last week on and off. I will start him on antiarrhythmic medication history of spontaneous Pulmonary embolism, diagnosed in August 2017, Echocardiogram shows mild RV enlargement with normal RV systolic function. Tolerating Eliquis well. Factor V Leiden is pending. If it is negative patient will need full panel for hypercoagulable state. History of hepatitis C, splenectomy, chronic back pain on multiple pain medications. History of neck fusion: no acute issues. History of depression, anxiety. Followed by a psychiatrist. Clinical Quality Measures DVT/VTE Risk/Contraindication: Risk Factor Score Per Nursin RFS Level Per Nursing on Admit: 1=Low/No VTE PPX GILES CHRISTIANSON MD Sep 24, 2017 09:36
[2017-09-24] MEDS ORDERED: LIDOCAINE 1% INJ 50 ML (XYLOCAINE) VIAL ONE (10:02)
[2017-09-24] MEDS ORDERED: HEParin (CATH LAB) 2,000 ML IV ONE (10:03)
[2017-09-24] MEDS ORDERED: MIDAZOLAM 5 MG/5 ML (VERSED) VIAL ONE (10:03)
[2017-09-24] MEDS ORDERED: fentaNYL INJECTION 100 MCG/2 ML AMP ONE (10:03)
[2017-09-24] MEDS ORDERED: VERAPAMIL 5 MG/2 ML (CALAN) VIAL IV ONE (10:44)
[2017-09-24] MEDS ORDERED: HEParin 1000 UNIT/ML (10ML VIAL) FOR BOLUS ONE (10:44)
[2017-09-24] MEDS ORDERED: NITROGLYCERIN DRIP 25 MG/D5W 250 ML IV ONE (10:44)
[2017-09-24] MEDS ORDERED: ALPRAZolam 1 MG (XANAX) TAB PO PRN (10:45)
--- NOTE | 2017-09-24 11:25 | Cardiac Cath Report ---
Cardiac Cath Report Physician (s)/Outside Sales Engineer (s) Physician GILES CHRISTIANSON MD Pre-Procedure Diagnosis Pre-Procedure Diagnosis: Chest pain, atrial fibrillation Post-Procedure Note Procedure Start Date: Sep 24, 2017 Name of Procedure: Left heart catheterization, left ventriculogram. [id number] Findings/Procedure Note PROCEDURE NOTE: After explaining the procedure to the patient, all pros and cons were explained, all questions were answered. The patient signed the consent and then she was placed on the cardiac catheterization laboratory. The patient was placed on the cardiac catheterization laboratory. Wrist was prepped SL fashion local anesthesia was used. Sheath placed in the right radial artery. Hal right and Mei catheter were used to access the coronary system. Hal right was used to cross the valve to the left ventricular cavity, left ventricular gram was done At the end of the procedure the sheath was removed. Closure device was used FINDINGS: Hemodynamics LV 130/25, end-diastolic pressure of 25 Aorta 129/85 mean of 97 ANATOMY: Left Main is free of obstructive disease Left Anterior Descending is tortuous with mild disease proximally 40 percent stenosis nonobstructive disease Left Circumflex is moderate in size with normal obstructive disease Right Coronory Artery is large dominant artery with no obstructive disease LV Gram is normal in size with normal contractility, estimated ejection fraction 60 percent CONCLUSION: 1. Mild coronary artery disease nonobstructive disease, 40 percent proximal LAD , did not change compared to 2014 2. Normal left ventricular size and systolic function estimated ejection fraction 60 percent, elevated left ventricular end-diastolic pressure DISCUSSION AND RECOMMENDATION: medical therapy is recommended patient will be started on class IC antiarrhythmic medication Anesthesia Type: Conscious Sedation Estimated blood loss (mL): 10 ml Contrast Amount: 60 ml Total Radiation Dose: 881 mGy Post-Procedure Diagnosis Post-operative diagnosis: Paroxysmal atrial fibrillation Chest pain nonspecific etiology Coronary artery disease Back pain GILES CHRISTIANSON MD Sep 24, 2017 11:25
[2017-09-24] MEDS ORDERED: FLEC100T PO (11:28)
--- NOTE | 2017-09-24 11:28 | Discharge Inst-Post CATH ---
Discharge Inst-CATH Post Cardiac Cath D/C Inst Follow Up/Plan Appointment with Dr. Maria's office in 2 weeks CARDIAC CATH DISCHARGE INSTRUCTIONS *Hold Metformin for 48 hours post heart cath. ACTIVITY * Go Home directly and rest. * Limit activity of the leg (or wrist if it was used) for 7 days including aerobics, swimming, jogging, bicycling, etc. * Restrict stair-climbing for 7 days if possible, if not, climb up with your non -cath leg, then bring together on the same step. * Avoid lifting, pushing, pulling or excessive movement of the affected extremity for 7 days. * Customary sexual activity may be resumed after 2 days-use caution not to use a position that strains or causes pain to the affected extremity. * No driving for 24 hours. * NO SMOKING. * Avoid straining for bowel movements for 7 days. * Gentle walking on level ground is allowed. * Returning to work will depend on the type of procedure and the results. Your doctor will discuss this with you. CALL YOUR DOCTOR FOR ANY OF THE FOLLOWING: *If bleeding from the puncture site occurs- Apply gentle pressure to site with clean cloth and call your doctor or EMS. * If a knot or lump forms under the skin, increases in size, or causes pain. * If bruising appears to be worsening or moving further down your leg instead of disappearing. * Temperature above 101 F. CARE OF YOUR GROIN INCISION; * Bruising or purple discoloration of the skin near the puncture site is common. * You may shower only, no bathtub bathing for 5 days. Be careful to avoid slipping as your leg may feel stiff. * If a closure device was used on your femoral artery, please see the attached guide regarding care of the device and your leg. * REMOVE the dressing from your groin the next day after your procedure in the shower. CARE OF YOUR WRIST INCISION; * Bruising or purple discoloration of the skin near the puncture site is common. * You may shower. * DO NOT submerge wrist. * Remove dressing in 24 hours. GILES MARIA MD Sep 24, 2017 11:28
[2017-09-24] MEDS ORDERED: FLECAINIDE 100 MG (TAMBOCOR) TAB PO SCH (11:30)
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
[2017-09-24] MEDS ORDERED: APIXABAN 5 MG (ELIQUIS) TABLET PO SCH ×2 (21:00)
[2017-09-25] MEDS ORDERED: PANTOPRAZOLE 40 MG (PROTONIX) TAB PO SCH (07:00)
[2017-09-25] MEDS ORDERED: DULoxetine 30 MG (CYMBALTA) CAP PO SCH (09:00)
[2017-09-25] MEDS ORDERED: ASPIRIN E.C. 81 MG (ECOTRIN) TAB PO SCH (09:00)
--- NOTE | 2017-09-29 15:19 | Physician Query-Final Dx ---
MILTON LIRA 09/29/17 1519: Final Diagnosis Give Final Diagnosis Please give Final Diagnosis JUAN MANUEL EVANS DO 09/29/17 1709: Final Diagnosis Give Final Diagnosis chest pain not of cardiac origin Atrial fib with SVT at [facility] ER prior to transfer MILTON LIRA Sep 29, 2017 15:19 JUAN MANUEL EVANS DO Sep 29, 2017 17:09
== END 2017-09-24 16:25 | disposition home or self-care (01) | DRG 287 ==
LOC: ICU 04:14
PROVIDERS: ADMIT Internal Medicine; ATTEND Internal Medicine
PROC: 4A023N7 Measurement of Cardiac Sampling and Pressure, Left Heart, Percutaneous Approach (ICD-10-PCS; principal; 2017-09-24)
PROC: B2111ZZ Fluoroscopy of Multiple Coronary Arteries using Low Osmolar Contrast (ICD-10-PCS; 2017-09-24)
PROC: B2151ZZ Fluoroscopy of Left Heart using Low Osmolar Contrast (ICD-10-PCS; 2017-09-24)
DX: I48.0 Paroxysmal atrial fibrillation (principal); I47.1 Supraventricular tachycardia; I25.10 Atherosclerotic heart disease of native coronary artery without angina pectoris; K21.9 Gastro-esophageal reflux disease without esophagitis; K59.09 Other constipation; F41.9 Anxiety disorder, unspecified; F32.9 Major depressive disorder, single episode, unspecified; G89.29 Other chronic pain; Z79.891 Long term (current) use of opiate analgesic; Z79.899 Other long term (current) drug therapy; Z86.711 Personal history of pulmonary embolism
CPT/HCPCS: 36415; 71045; 80048; 83735; 84484; 85025; 87081; 93005; 93458

== ENCOUNTER 2017-09-25 20:07 | Emergency (ER) | payer MEDICAID ==
[~2017-09-25] VITALS: Ht 182.9 cm; Wt 101.6 kg
[~2017-09-25 20:07] MED LIST changes: +FLEC100T PO
--- OUTSIDE RECORDS SUMMARY | 2017-09-25 20:12 | XMS REPORT | Clinical Summary ---
Author Author [facility] Organization [facility] Address Unknown Phone Unavailable Care Team Providers Care Echocardiography Technologist Name Role Phone PCP Unavailable Source Comments Some departments are not documenting in the electronic medical record. If you do not see the information that you expected, contact Release of Information in the Health Information Management department at [phone] for further assistance in locating additional records.[facility] Allergies No Known Allergies Current [...]
--- OUTSIDE RECORDS SUMMARY | 2017-09-25 20:17 | XMS REPORT | Continuity of Care Document ---
Author Author [facility] Address Unknown Phone Unavailable Allergies Active Description Code Type Severity Reaction Onset Reported/Identified Relationship to Patient Clinical Status Yes Darvocet-N 100 Drug Allergy N /A N/A 10/10/2009 Yes Darvocet-N 100 Drug Allergy 10/10/2009 Yes prednisone 10 mg tablet Drug Allergy N/A N/A 07/23/2014 Yes tramadol 50 mg tablet Drug Allergy N/A N/A 11/20/2014 Yes amphetamine Drug Allergy N/A N/A 11/20/2014 Yes Benzodiazepines Drug Allergy N/A N/A 11/20/2014 Yes hydrocodone Drug Allergy N/A N/A 11/20/2014 Yes No Known Drug Allergies [id number] Drug Allergy Unknown N/A 07/14/2017 Medications There is no data. Problems Date Dx Coded Attending Type Code [...] DO, SHERRON K 784.0 headache 04/26/2008 BEVERLEY PEANUT SEPARATOR, OLIVIA M 784.0 headache 04/26/2008 VIRGEN DO, SHERRON K 784.0 headache 04/26/2008 VIRGEN DO, SHERRON K 784.0 headache 04/26/2008 BEVERLEY PEANUT SEPARATOR, OLIVIA M 784.0 headache 04/26/2008 VIRGEN DO, [...] K 266.2 B12 DEF W/O ANEMIA 06/09/2008 BEVERLEY DIAZ, OLIVIA M 266.2 B12 DEF W/O ANEMIA 06/09/2008 VIRGEN DO, SHERRON K 266.2 B12 DEF W/O ANEMIA 06/09/2008 VIRGEN DO, SHERRON K 266.2 B12 DEF W/O ANEMIA 06/09/2008 BEVERLEY DIAZ, OLIVIA M 266.2 B12 DEF W/O ANEMIA 06/09/2008 VIRGEN DO, SHERRON K 266.2 B12 DEF W/O ANEMIA 07/04/2008 285.9 ANEMIA 07/04/2008 536.8 Dyspepsia 07/04/2008 MICHELE BIOLOGY TEACHER, BRENNEN LEPEH 285.9 ANEMIA 07/04/2008 MICHELE BIOLOGY TEACHER, BRENNEN LEPEH 536.8 Dyspepsia 07/04/2008 285.9 ANEMIA 07/04/2008 536.8 Dyspepsia 07/04/2008 MICHELE BIOLOGY TEACHER, BRENNEN JAUN 285.9 ANEMIA 07/04/2008 MICHELE BIOLOGY TEACHER, BRENNEN LEPEH 536.8 Dyspepsia 07/04/2008 MICHELE BIOLOGY TEACHER, BRENNEN JAUN 285.9 ANEMIA 07/04/2008 MICHELE BIOLOGY TEACHER, BRENNEN LEPEH 536.8 Dyspepsia 07/04/2008 MICHELE BIOLOGY TEACHER, BRENNEN LEPEH 285.9 ANEMIA 07/04/2008 MICHELE BIOLOGY TEACHER, BRENNEN LEPEH 536.8 Dyspepsia 07/04/2008 VIRGEN DO, SHERRON K 285.9 ANEMIA 07/04/2008 VIRGEN DO, SHERRON K 536.8 Dyspepsia 07/04/2008 MADL BIOLOGY TEACHER, RYAN L 285.9 ANEMIA 07/04/2008 MADL BIOLOGY TEACHER, RYAN L 536.8 Dyspepsia 07/04/2008 VIRGEN DO, [...] BEVERLEY DIAZ, OLIVIA M 285.9 ANEMIA 07/04/2008 BEEVRLEY DIAZ, OLIVIA M 536.8 Dyspepsia 07/04/2008 VIRGEN DO, SHERRON K 285.9 ANEMIA 07/04/2008 VIRGEN DO, SHERRON K 536.8 Dyspepsia 09/04/2008 528.9 Mouth Pain 09/04/2008 BRENNEN MICHELE APRNH 528.9 Mouth Pain 09/04/2008 528.9 Mouth Pain 09/04/2008 BRENNEN MICHELE APRNH 528.9 Mouth Pain 09/04/2008 BRENNEN MICHELE APRNH 528.9 Mouth Pain 09/04/2008 BRENNEN MICHELE APRNH 528.9 Mouth Pain 09/04/2008 VIRGEN DO, SHERRON K 528.9 Mouth Pain 09/04/2008 NIA HALL APRNA L 528.9 Mouth Pain 09/04/2008 VIRGEN DO, SHERRON [...] 01/23/2009 780.79 feeling tired or poorly 01/23/2009 RYNE ROGERS BRENNEN JAUN 302.72 MALE ERECTILE DISORDER 01/23/2009 BRENNEN MICHELE [...] 780.79 feeling tired or poorly 01/23/2009 MADL BIOLOGY TEACHER, RYAN L 302.72 MALE ERECTILE DISORDER 01/23/2009 MADL BIOLOGY TEACHER, RYAN L 780.79 feeling tired or poorly [...] SHERRON K 302.72 MALE ERECTILE DISORDER 01/23/2009 VIGREN DO, SHERRON K 780.79 feeling tired or poorly 01/23/2009 VIRGEN DO, SHERRON K 302.72 MALE ERECTILE DISORDER 01/23/2009 VIRGEN DO, SHERRON K 780.79 feeling tired or poorly 01/23/2009 VIRGEN DO, SHERRON K 302.72 MALE ERECTILE DISORDER 01/23/2009 VIRGEN DO, SHERRON K 780.79 feeling tired or poorly 01/23/2009 VIRGEN DO, SHERRON K 302.72 MALE ERECTILE DISORDER 01/23/2009 VIRGEN DO, SHRERON K 780.79 feeling tired or poorly 01/23/2009 [...] K 780.79 feeling tired or poorly 01/23/2009 BEVERLEY DIAZ, OLIVIA M 302.72 MALE ERECTILE DISORDER 01/23/2009 BEVERLEY DIAZ, OLIVIA M 780.79 feeling tired or poorly 01/23/2009 VIRGEN DO, SHERRON K 302.72 MALE ERECTILE DISORDER 01/23/2009 VIRGEN DO, SHERRON K 780.79 feeling tired or poorly 03/06/2009 789.00 Abdominal Pain 03/06/2009 MICHELE BIOLOGY TEACHER, BRENNEN JAUN 789.00 Abdominal Pain 03/06/2009 789.00 Abdominal Pain 03/06/2009 MICHELE BIOLOGY TEACHER, BRENNEN LEPEH 789.00 Abdominal Pain 03/06/2009 MICHELE BIOLOGY TEACHER, BRENNEN LEPEH 789.00 Abdominal Pain 03/06/2009 MICHELE BIOLOGY TEACHER, BRENNEN JAUN 789.00 Abdominal Pain 03/06/2009 VIRGEN DO, SHERRON K 789.00 Abdominal Pain 03/06/2009 MADVanessa BIOLOGY TEACHER, RYAN L 789.00 Abdominal Pain 03/06/2009 VIRGEN [...] K 789.00 Abdominal Pain 03/06/2009 OLIVIA AUGUSTINE M 789.00 Abdominal Pain 03/06/2009 VIRGEN DO, SHERRON K 789.00 Abdominal Pain 03/06/2009 VIRGEN DO, SHERRON K 789.00 Abdominal Pain 03/06/2009 OLIVIA AUGUSTINE M 789.00 Abdominal Pain 03/06/2009 VIRGEN DO, SHERRON K 789.00 Abdominal Pain 06/13/2009 307.40 INSOMNIA 06/13/2009 V04.81 FLU SHOT 06/13/2009 MICHELE BIOLOGY TEACHER, BRENNEN ZAMORANO 307.40 INSOMNIA 06/13/2009 MICHELE BIOLOGY TEACHER, BRENNEN ZAMORANO V04.81 FLU SHOT 06/13/2009 307.40 INSOMNIA 06/13/2009 V04.81 FLU SHOT 06/13/2009 MICHELE BIOLOGY TEACHER, BRENNEN ZAMORANO 307.40 INSOMNIA 06/13/2009 MICHELE BIOLOGY TEACHER, BRENNEN ZAMORANO V04.81 FLU SHOT 06/13/2009 MICHELE BIOLOGY TEACHER, BRENNEN ZAMORANO 307.40 INSOMNIA 06/13/2009 MICHELE BIOLOGY TEACHER, BRENNEN ZAMORANO V04.81 FLU SHOT 06/13/2009 MICHELE BIOLOGY TEACHER, BRENNEN ZAMORANO 307.40 INSOMNIA 06/13/2009 MICHELE BIOLOGY TEACHER, BRENNEN ZAMORANO V04.81 FLU SHOT 06/13/2009 VIRGEN DO, SHERRON K 307.40 INSOMNIA 06/13/2009 VIRGEN DO, SHERRON K V04.81 FLU SHOT 06/13/2009 MADL BIOLOGY TEACHER, RYAN L 307.40 INSOMNIA 06/13/2009 MADL BIOLOGY TEACHER, RYAN L V04.81 FLU SHOT 06/13/2009 VIRGEN [...] DO, SHERRON K V04.81 FLU SHOT 06/13/2009 LOIVIA AUGUSTINE M 307.40 INSOMNIA 06/13/2009 BEVERLEYOLIVIA RAMESH M V04.81 FLU SHOT 06/13/2009 VIRGEN DO, [...] Muscle Spasm 09/11/2009 847.9 Sprain Back 09/11/2009 RYNE ROGERS BRENNEN JAUN 728.85 Muscle Spasm 09/11/2009 MICHELE SUE BRENNEN JAUN 847.9 Sprain Back 09/11/2009 728.85 Muscle Spasm 09/11/2009 847.9 Sprain Back 09/11/2009 RYNE ROGERS BRENNEN JAUN 728.85 Muscle Spasm 09/11/2009 MICHELE SUE BRENNEN JAUN 847.9 Sprain Back 09/11/2009 MICHELE SUE, BRENNEN JAUN 728.85 Muscle Spasm 09/11/2009 MICHELE SUE BRENNEN JAUN 847.9 Sprain Back 09/11/2009 MICHELE SUE BRENNEN JAUN 728.85 Muscle Spasm 09/11/2009 RYNE ROGERS BRENNNE JAUN 847.9 Sprain Back 09/11/2009 VIRGEN DO SHERRON K 728.85 Muscle Spasm 09/11/2009 VIRGEN DO, SHERRON K 847.9 Sprain Back 09/11/2009 MADL BIOLOGY TEACHER, RYAN L 728.85 Muscle Spasm 09/11/2009 MADL BIOLOGY TEACHER, RYAN L 847.9 Sprain Back 09/11/2009 VIRGEN [...] AUGUSTINE 728.85 Muscle Spasm 09/11/2009 OLIVIA AUGUSTINE M 847.9 Sprain Back 09/11/2009 VIRGEN DO, SHERRON K 728.85 Muscle Spasm 09/11/2009 VIRGEN DO, SHERRON K 847.9 Sprain Back 09/11/2009 VIRGEN DO, SHERRON K 728.85 Muscle Spasm 09/11/2009 VIRGEN DO, SHERRON K 847.9 Sprain Back 09/11/2009 BEVERLEY PEANUT SEPARATOR, OLIVIA M 728.85 Muscle Spasm 09/11/2009 BEVERLEY PEANUT SEPARATOR, OLIVIA M 847.9 Sprain Back 09/11/2009 VIRGEN DO, SHERRON K 728.85 Muscle Spasm 09/11/2009 VIRGEN DO, SHERRON K 847.9 Sprain Back 10/23/2009 NODX No Diagnosis 10/23/2009 MICHELE BIOLOGY TEACHER, BRENNEN ZAMORANO NODX No Diagnosis 10/23/2009 NODX No Diagnosis 10/23/2009 MICHELE BIOLOGY TEACHER, BRENNEN ZAMORANO NODX No Diagnosis 10/23/2009 MICHELE BIOLOGY TEACHER, BRENNEN ZAMORANO NODX No Diagnosis 10/23/2009 MICHELE BIOLOGY TEACHER, BRENNEN ZAMORANO NODX No Diagnosis 10/23/2009 VIRGEN DO, SHERRON K NODX No Diagnosis 10/23/2009 RACHEL HALL APRNNYDelma Mendez NODX No Diagnosis 10/23/2009 VIRGEN DO, SHERRON [...] SHERRON K NODX No Diagnosis 10/23/2009 BEVERLEY PEANUT SEPARATOR OLIVIA M NODX No Diagnosis 10/23/2009 VIRGEN DO, SHERRON K NODX No Diagnosis 10/23/2009 VIRGEN DO, SHERRON K NODX No Diagnosis 10/23/2009 BEVERLEY DIAZ, OLIVIA M NODX No Diagnosis 10/23/2009 VIRGEN DO, SHERRON K NODX No Diagnosis 11/06/2009 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 11/06/2009 RYNE ROGERS BRENNEN JAUN 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00 ANXIETY UNSPEC 02/19/2010 MICHELE BIOLOGY TEACHER, BRENNEN ZAMORANO 300.00 ANXIETY UNSPEC 02/19/2010 300.00 ANXIETY UNSPEC 02/19/2010 MICHELE BIOLOGY TEACHER, BRENNEN ZAMORANO 300.00 ANXIETY UNSPEC 02/19/2010 MICHELE BIOLOGY TEACHER, BRENNEN ZAMORANO 300.00 ANXIETY UNSPEC 02/19/2010 MICHELE BIOLOGY TEACHER, BRENNEN ZAMORANO 300.00 ANXIETY UNSPEC 02/19/2010 VIRGEN DO, SHERRON K 300.00 ANXIETY UNSPEC 02/19/2010 MADL BIOLOGY TEACHER, RYAN L 300.00 ANXIETY UNSPEC 02/19/2010 VIRGEN [...] 300.00 ANXIETY UNSPEC 05/09/2010 719.40 PAIN IN JOINT , SITE UNSPECIFIED 05/09/2010 BRENNEN MICHELE APRN 719.40 PAIN IN JOINT, SITE UNSPECIFIED 05/09/2010 719.40 PAIN IN JOINT , SITE UNSPECIFIED 05/09/2010 BRENNEN MICHELE APRN 719.40 [...] IN JOINT, SITE UNSPECIFIED 05/09/2010 OLIVIA AUGUSTINE M 719.40 PAIN IN JOINT, SITE UNSPECIFIED [...] MICHELE APRN 300.02 AN GEN ANXIETY 07/22/2010 RYNE ROGERS BRENNEN JAUN 301.9 PD PERS DIS NOS 07/22/2010 MICHELE BIOLOGY TEACHERBRENNEN 309.81 AN PTSD 07/22/2010 MICHELE BIOLOGY TEACHER, BRENNEN ZAMORANO 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 07/22/2010 MICHELE BIOLOGY TEACHERBRENNEN 300.02 AN GEN ANXIETY 07/22/2010 MICHELE BIOLOGY TEACHERBRENNEN 301.9 PD PERS DIS NOS 07/22/2010 MICHELE BIOLOGY TEACHERBRENNEN 309.81 AN PTSD 07/22/2010 MICHELE BIOLOGY TEACHER, BRENNEN ZAMORANO 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 07/22/2010 MICHELE BIOLOGY TEACHERBRENNEN De La Cruz 300.02 AN GEN ANXIETY 07/22/2010 MICHELE BIOLOGY TEACHERBRENNEN 301.9 PD PERS DIS NOS 07/22/2010 MICHELE BRENNEN ROGERS 309.81 AN PTSD 07/22/2010 VIRGEN DO, SHERRON K 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 07/22/2010 VIRGEN DO, SHERRON K 300.02 AN GEN ANXIETY 07/22/2010 VIRGEN DO, SHERRON K 301.9 PD PERS DIS NOS 07/22/2010 VIRGEN DO, SHERRON K 309.81 AN PTSD 07/22/2010 MADL BIOLOGY TEACHER, RYAN L 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 07/22/2010 MADL BIOLOGY TEACHER, RYAN L 300.02 AN GEN ANXIETY 07/22/2010 MADL BIOLOGY TEACHER, RYAN L 301.9 PD PERS DIS NOS 07/22/2010 MADL BIOLOGY TEACHER, RYAN L 309.81 AN PTSD 07/22/2010 VIRGEN DO, SEHRRON K 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 07/22/2010 [...] PD PERS DIS NOS 07/22/2010 VIRGEN DO, SHERORN K 309.81 AN PTSD 07/22/2010 VIRGEN DO, SHERRON K 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 07/22/2010 VIRGEN DO, SHERRON K 300.02 AN GEN ANXIETY 07/22/2010 VIRGEN DO, SHERRON K 301.9 PD PERS DIS NOS 07/22/2010 VIRGEN DO, SHERRON K 309.81 AN PTSD 07/22/2010 BEVERLEY PEANUT SEPARATOR, OLIVIA M 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 07/22/2010 BEVERLEY PEANUT SEPARATOR, OLIVIA M 300.02 AN GEN ANXIETY 07/22/2010 BEVERLEY PEANUT SEPARATOR, OLIVIA M 301.9 PD PERS DIS NOS 07/22/2010 BEVERLEY PEANUT SEPARATOR, OLIVIA M 309.81 AN PTSD 07/22/2010 VIRGEN [...] SHERRON K 309.81 AN PTSD 07/22/2010 BEVERLEY PEANUT SEPARATOR, OLIVIA M 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 07/22/2010 BEVERLEY PEANUT SEPARATOR, OLIVIA M 300.02 AN GEN ANXIETY 07/22/2010 BEVERLEY PEANUT SEPARATOR, OLIVIA M 301.9 PD PERS DIS NOS 07/22/2010 BEVERLEY PEANUT SEPARATOR, OLIVIA M 309.81 AN PTSD 07/22/2010 VIRGEN [...] MICHELE APRN 564.1 Irritable Bowel Syndrome 08/08/2010 VIRGEN DO, SHERRON K 564.1 Irritable Bowel Syndrome 08/08/2010 RAFAEL BIOLOGY TEACHER, RYAN L 564.1 Irritable Bowel Syndrome 08/08/2010 [...] Disorder Of Skin And Subcutaneous Tissue 12/17/2010 MICHELEESCOBAR MONTES DE OCANBRENNEN 562.10 Diverticulosis Of Colon (without Hemorrhage) 12/17/2010 MICHELE BIOLOGY TEACHERBRENNENH 709.9 Unspecified Disorder Of Skin And Subcutaneous Tissue 12/17/2010 562.10 Diverticulosis Of Colon (without Hemorrhage) 12/17/2010 709.9 Unspecified Disorder Of Skin And Subcutaneous Tissue 12/17/2010 MICHELE BIOLOGY TEACHERBRENNENH 562.10 Diverticulosis Of Colon (without Hemorrhage) 12/17/2010 MICHELE BIOLOGY TEACHERBRENNENH 709.9 Unspecified Disorder Of Skin And Subcutaneous Tissue 12/17/2010 MICHELE BIOLOGY TEACHER, BRENNEN LEPEH 562.10 Diverticulosis Of Colon (without Hemorrhage) 12/17/2010 MICHELE BIOLOGY TEACHER, BRENNEN LEPEH 709.9 Unspecified Disorder Of Skin And Subcutaneous Tissue 12/17/2010 MICHELE BIOLOGY TEACHER, BRENNEN LEPEH 562.10 Diverticulosis Of Colon (without Hemorrhage) 12/17/2010 MICHELE BIOLOGY TEACHERBRENNENH 709.9 Unspecified Disorder Of Skin And Subcutaneous Tissue 12/17/2010 PARAM DO SHERRON K 562.10 Diverticulosis Of Colon (without Hemorrhage) 12/17/2010 PARAM DO SHERRON K 709.9 Unspecified Disorder Of Skin And Subcutaneous Tissue 12/17/2010 MADL BIOLOGY TEACHER, RYAN L 562.10 Diverticulosis Of Colon (without Hemorrhage) 12/17/2010 MADL BIOLOGY TEACHER, RYAN L 709.9 Unspecified Disorder Of Skin And Subcutaneous Tissue 12/17/2010 VIRGEN DO SHERRON K 562.10 Diverticulosis Of Colon (without Hemorrhage) 12/17/2010 PARAM DO SHERRON K 709.9 Unspecified Disorder Of [...] 562.10 Diverticulosis Of Colon (without Hemorrhage) 12/17/2010 PARAM DO SHERRON K 709.9 Unspecified Disorder Of [...] 564.00 02/01/2011 Ot 789.00 02/19/2011 Ot 041.12 METHICILLIN RESISTANT STAPHYLOCOCCUS AUR 02/19/2011 Ot 452 PORTAL VEIN THROMBOSIS 02/19/2011 Ot 530.81 ESOPHAGEAL REFLUX 02/19/2011 Ot 558.9 NONINF GASTROENTERIT NEC 02/19/2011 Ot 562.10 DIVERTICULOSIS COLON (W/O MENT OF HEMORR 02/19/2011 Ot 564.00 UNSPEC CONSTIPATION 02/19/2011 Ot 575.6 GB CHOLESTEROLOSIS 02/19/2011 Ot 682.2 CELLULITIS OF TRUNK 02/21/2011 Ot V58.31 02/23/2011 452 Portal Vein Thrombosis 02/23/2011 682.9 Cellulitis And Abscess Of Unspecified Sites 02/23/2011 MICHELE SUE BRENNEN LEPEH 452 Portal Vein Thrombosis 02/23/2011 MICHELE SUE BRENNEN LEPEH 682.9 Cellulitis And Abscess Of Unspecified Sites 02/23/2011 452 Portal Vein Thrombosis 02/23/2011 682.9 Cellulitis And Abscess Of Unspecified Sites 02/23/2011 MICHELE BIOLOGY TEACHER, BRENNEN LEPEH 452 Portal Vein Thrombosis 02/23/2011 MICHELE BIOLOGY TEACHER, [facility] 682.9 Cellulitis And Abscess Of Unspecified Sites 02/23/2011 MICHELE BIOLOGY TEACHER, BRENNEN LEPEH 452 Portal Vein Thrombosis 02/23/2011 MICHELE BIOLOGY TEACHER, [facility] 682.9 Cellulitis And Abscess Of Unspecified Sites 02/23/2011 MICHELE SUE BRENNEN LEPEH 452 Portal Vein Thrombosis 02/23/2011 MICHELE BIOLOGY TEACHER, [facility] 682.9 Cellulitis And Abscess Of Unspecified Sites 02/23/2011 SHERRON VIRGEN DO K 452 Portal Vein Thrombosis 02/23/2011 SHERRON VIRGEN DO K 682.9 Cellulitis And Abscess Of Unspecified Sites 02/23/2011 MADL BIOLOGY TEACHERRYAN De La Cruz L 452 Portal Vein Thrombosis 02/23/2011 MADL BIOLOGY TEACHERRYAN De La Cruz L 682.9 Cellulitis And Abscess Of Unspecified Sites 02/23/2011 SHERRON VIRGEN DO K 452 Portal Vein Thrombosis 02/23/2011 VIRGEN [...] AUGUSTINE M 452 Portal Vein Thrombosis 02/23/2011 BEVERLEY CNS, OLIVIA M 682.9 Cellulitis And Abscess Of Unspecified Sites 02/23/2011 SHERRON VIRGEN DO K 452 Portal Vein Thrombosis 02/23/2011 SHERRON VIRGEN DO K 682.9 Cellulitis And Abscess Of Unspecified Sites 02/23/2011 Ot 682.9 02/23/2011 Ot V58.61 02/23/2011 Ot 300.00 02/23/2011 Ot 786.50 02/24/2011 780.50 SLEEP DISTURBANCE, UNSPECIFIED 02/24/2011 V58.30 Encounter For Change Or Removal Of Nonsurgical Wound Dressing 02/24/2011 MICHELE BIOLOGY TEACHER, BRENNEN ZAMORANO 780.50 SLEEP DISTURBANCE, UNSPECIFIED 02/24/2011 MICHELE BIOLOGY TEACHER, BRENNEN ZAMORANO V58.30 Encounter For Change Or Removal Of Nonsurgical Wound Dressing 02/24/2011 780.50 SLEEP DISTURBANCE, UNSPECIFIED 02/24/2011 V58.30 Encounter For Change Or Removal Of Nonsurgical Wound Dressing 02/24/2011 MICHELE BIOLOGY TEACHER, BRENNEN LEPEH 780.50 SLEEP DISTURBANCE, UNSPECIFIED 02/24/2011 MICHELE BIOLOGY TEACHER, BRENNEN ZAMORANO V58.30 Encounter For Change Or Removal Of Nonsurgical Wound Dressing 02/24/2011 MICHELE BIOLOGY TEACHER, BRENNEN LEPEH 780.50 SLEEP DISTURBANCE, UNSPECIFIED 02/24/2011 MICHELE BIOLOGY TEACHER, BRENNEN ZAMORANO V58.30 Encounter For Change Or Removal Of Nonsurgical Wound Dressing 02/24/2011 MICHELE BIOLOGY TEACHER, BRENNEN ZAMORANO 780.50 SLEEP DISTURBANCE, UNSPECIFIED 02/24/2011 MICHELE BIOLOGY TEACHER, BRENNEN ZAMORANO V58.30 Encounter For Change Or Removal Of Nonsurgical Wound Dressing 02/24/2011 SHERRON VIRGEN DO K 780.50 SLEEP DISTURBANCE, UNSPECIFIED 02/24/2011 VIRGEN YOCASTA MELCHORA K V58.30 Encounter For Change Or Removal Of Nonsurgical Wound Dressing 02/24/2011 MADL BIOLOGY TEACHERRYAN De La Cruz L 780.50 SLEEP DISTURBANCE, UNSPECIFIED 02/24/2011 MADL BIOLOGY TEACHERRACHEL De La CruzNYA L V58.30 Encounter For Change Or Removal Of Nonsurgical Wound Dressing 02/24/2011 VIRGEN YOCASTA MELCHORA K 780.50 SLEEP DISTURBANCE, UNSPECIFIED 02/24/2011 YOCASTA VIRGEN DOA K V58.30 Encounter For Change Or Removal [...] AUGUSTINE M 780.50 SLEEP DISTURBANCE, UNSPECIFIED 02/24/2011 BEVERLEY PEANUT SEPARATOR OLIVIA M V58.30 Encounter For Change Or Removal [...] Dressing 03/02/2011 789.05 Abdominal Pain Periumbilic 03/02/2011 RYNE ROGERS BRENNEN LEPEH 789.05 Abdominal Pain Periumbilic 03/02/2011 789.05 Abdominal Pain Periumbilic 03/02/2011 RYNE ROGERS BRENNEN LEPEH 789.05 Abdominal Pain Periumbilic 03/02/2011 RYNE ROGERS BRENNEN JAUN 789.05 Abdominal Pain Periumbilic 03/02/2011 RYNE ROGERS BRENNEN JAUN 789.05 Abdominal Pain Periumbilic 03/02/2011 VIRGEN DO, [...] 789.05 Abdominal Pain Periumbilic 03/02/2011 OLIVIA AUGUSTINE 789.05 Abdominal Pain Periumbilic 03/02/2011 VIRGEN DO, SHERRON K 789.05 Abdominal Pain Periumbilic 03/02/2011 VIRGEN DO, SHERRON K 789.05 Abdominal Pain Periumbilic 03/02/2011 OLIVIA AUGUSTINE 789.05 Abdominal Pain Periumbilic 03/02/2011 VIRGEN DO, SHERRON K 789.05 Abdominal Pain Periumbilic 03/18/2011 V68.1 ISSUE OF REPEAT PRESCRIPTIONS 03/18/2011 MICHELE BIOLOGY TEACHER, BRENNEN ZAMORANO V68.1 ISSUE OF REPEAT PRESCRIPTIONS 03/18/2011 V68.1 ISSUE OF REPEAT PRESCRIPTIONS 03/18/2011 RYNE MONTES DE OCADorothy BRENNEN ZAMORANO V68.1 ISSUE OF REPEAT PRESCRIPTIONS 03/18/2011 RYNE MONTES DE OCADorothy BRENNEN ZAMORANO V68.1 ISSUE OF REPEAT PRESCRIPTIONS 03/18/2011 MICHELE BIOLOGY TEACHER, BRENNEN ZAMORANO V68.1 ISSUE OF REPEAT PRESCRIPTIONS 03/18/2011 VIRGEN DO, SHERRON K V68.1 ISSUE OF REPEAT PRESCRIPTIONS 03/18/2011 RYAN HALL APRN L V68.1 ISSUE OF REPEAT PRESCRIPTIONS 03/18/2011 [...] ISSUE OF REPEAT PRESCRIPTIONS 03/18/2011 OLIVIA AUGUSTINE Kitty V68.1 ISSUE OF REPEAT PRESCRIPTIONS 03/18/2011 VIRGEN DOSHERRON K V68.1 ISSUE OF REPEAT PRESCRIPTIONS 03/24/2011 Ot 041.12 METHICILLIN RESISTANT STAPHYLOCOCCUS AUR 03/24/2011 Ot 305.1 TOBACCO USE DISORDER 03/24/2011 Ot 530.81 ESOPHAGEAL REFLUX 03/24/2011 Ot 564.00 UNSPEC CONSTIPATION 03/24/2011 Ot 682.2 CELLULITIS OF TRUNK 03/24/2011 Ot V12.51 HX-VENOUS THROMBOSIS EMBOLISM 03/24/2011 Ot V12.79 PERSONAL HISTORY OTH SPEC DIGESTIVE SYST 03/24/2011 Ot V45.72 ACQRD ABSENCE INTESTINE - LARGE/SMALL 03/24/2011 Ot V45.79 ACQRD ABSENCE OF OTH ORGAN 03/24/2011 Ot V58.61 ANTICOAGULANTS,LT,CURRENT USE 03/25/2011 V58.69 MEDICATION HIGH RISK 03/25/2011 RYNE ROGERS BRENNEN ZAMORANO V58.69 MEDICATION HIGH RISK 03/25/2011 V58.69 MEDICATION HIGH RISK 03/25/2011 RYNE ROGERS BRENNEN ZAMORANO V58.69 MEDICATION HIGH RISK 03/25/2011 RYNE ROGERS BRENNEN ZAMORANO V58.69 MEDICATION HIGH RISK 03/25/2011 RYNE ROGERS BRENNEN ZAMORANO V58.69 MEDICATION HIGH RISK 03/25/2011 VIRGEN DO, SHERRON K V58.69 MEDICATION HIGH RISK 03/25/2011 RYAN HALL APRN V58.69 MEDICATION HIGH RISK 03/25/2011 VIRGEN DO, [...] SHERRON K V58.69 MEDICATION HIGH RISK 03/25/2011 BEVERLEY DIAZ, OLIVIA M V58.69 MEDICATION HIGH RISK 03/25/2011 VIRGEN DO, SHERRON K V58.69 MEDICATION HIGH RISK 03/25/2011 VIRGEN DO, SHERRON K V58.69 MEDICATION HIGH RISK 03/25/2011 BEVERLEY DIAZ, OLIVIA M V58.69 MEDICATION HIGH RISK 03/25/2011 VIRGEN DO, SHERRON K V58.69 MEDICATION HIGH RISK 03/26/2011 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 03/26/2011 MICHELE BIOLOGY TEACHER, BRENNEN ZAMORANO 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 03/26/2011 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 03/26/2011 RYNE MONTES [place] OCADorothy BRENNEN ZAMORANO 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 03/26/2011 RYNE MONTES [place] OCADorothy BRENNEN ZAMORANO 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 03/26/2011 RYNE MONTES [place] OCADorothy BRENNEN ZAMORANO 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 03/26/2011 VIRGEN DO, SHERRON K 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 03/26/2011 RAFAEL BIOLOGY TEACHERRYAN De La Cruz L V12.04 PERSONAL HISTORY OF METHICILLIN RESISTANT [...] METHICILLIN RESISTANT STAPHYLOCOCCUS AUREUS 03/26/2011 OLIVIA AUGUSTINE M 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 03/26/2011 VIRGEN DO SHERRON K 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 03/26/2011 VIRGEN DO SHERRON K 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 03/26/2011 OLIVIA AUGUSTINE M 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 03/26/2011 PARAM MELCHOR SHERRON K 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 09/08/2011 Ot 276.51 09/08/2011 Ot 295.30 09/08/2011 Ot 300.00 09/08/2011 Ot 304.00 09/08/2011 Ot 305.1 09/08/2011 Ot 309.81 09/08/2011 Ot 722.91 09/08/2011 Ot V12.51 09/20/2011 Ot 786.50 09/20/2011 Ot 786.52 09/30/2011 298.9 P PSYCHOSIS NOS 09/30/2011 MICHELE BIOLOGY TEACHERBRENNEN 298.9 P PSYCHOSIS NOS 09/30/2011 298.9 P PSYCHOSIS NOS 09/30/2011 MICHELE BIOLOGY TEACHER, BRENNEN ZAMORANO 298.9 P PSYCHOSIS NOS 09/30/2011 MICHELE BIOLOGY TEACHERBRENNEN 298.9 P PSYCHOSIS NOS 09/30/2011 MICHELE BIOLOGY TEACHERBRENNEN 298.9 P PSYCHOSIS NOS 09/30/2011 VIRGEN DO, SHERRON K 298.9 P PSYCHOSIS NOS 09/30/2011 RAFAEL BIOLOGY TEACHER, RYAN L 298.9 P PSYCHOSIS NOS 09/30/2011 [...] K 298.9 P PSYCHOSIS NOS 09/30/2011 BEVERLEY PEANUT SEPARATOR, OLIVIA M 298.9 P PSYCHOSIS NOS 09/30/2011 VIRGEN DO, SHERRON K 298.9 P PSYCHOSIS NOS 09/30/2011 VIRGEN DO, SHERRON K 298.9 P PSYCHOSIS NOS 09/30/2011 BEVERLEY PEANUT SEPARATOR, OLIVIA M 298.9 P PSYCHOSIS NOS 09/30/2011 VIRGEN DO, SHERRON K 298.9 P PSYCHOSIS NOS 10/04/2013 MICHELE BIOLOGY TEACHER, BRENNEN ZAMORANO 346.90 MIGRAINE HEADACHE 10/04/2013 MICHELE BIOLOGY TEACHER, BRENNEN ZAMORANO 346.90 MIGRAINE HEADACHE 10/04/2013 VIRGEN DO, SHERRON K 346.90 MIGRAINE HEADACHE 10/04/2013 RAFAEL BIOLOGY TEACHERRYAN De La Cruz L 346.90 MIGRAINE HEADACHE 10/04/2013 VIRGEN DO, [...] SHERRON K 346.90 MIGRAINE HEADACHE 10/04/2013 BEVERLEY PEANUT SEPARATOR, OLIVIA M 346.90 MIGRAINE HEADACHE 10/04/2013 VIRGEN DO, SHERRON K 346.90 MIGRAINE HEADACHE 10/04/2013 VIRGEN DO, SHERRON K 346.90 MIGRAINE HEADACHE 10/04/2013 BEVERLEY PEANUT SEPARATOR, OLIVIA M 346.90 MIGRAINE HEADACHE 10/04/2013 VIRGEN DO, SHERRON K 346.90 MIGRAINE HEADACHE 02/13/2014 VIRGEN DO, SHERRON K 338.29 OTHER CHRONIC PAIN 02/13/2014 LAURAL BIOLOGY TEACHERNIAA L 338.29 OTHER CHRONIC PAIN 02/13/2014 VIRGEN [...] SHERRON K 338.29 OTHER CHRONIC PAIN 02/13/2014 IVRGEN DO, SHERRON K 338.29 OTHER CHRONIC PAIN [...] SHERRON K 338.29 OTHER CHRONIC PAIN 02/19/2014 RYAN HALL APRN 796.9 OTHER NONSPECIFIC ABNORMAL FINDINGS 02/19/2014 VIRGEN [...] SHERRON K 729.5 PAIN IN LIMB 07/23/2014 BEVERLEYOLIVIA RAMESH M 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 AND OTHER LOWER URINARY TRACT SYMPTOMS (LUTS) 07/23/2014 OLIVIA AUGUSTINE 724.2 LUMBAGO 07/23/2014 BEVERLEYOLIVIA RAMESH 729.5 PAIN IN LIMB 07/23/2014 SHERRON VIRGEN DO K 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 AND OTHER LOWER URINARY TRACT SYMPTOMS (LUTS) 07/23/2014 YOCASTA VIRGEN DOA K 724.2 LUMBAGO 07/23/2014 YOCASTA VIRGEN DOA K 729.5 PAIN IN LIMB 08/22/2014 OLIVIA AUGUSTINE M 311 MO DEPRESS NOS 08/22/2014 YOCASTA VIRGEN DOA K 311 MO DEPRESS NOS 08/22/2014 YOCASTA VIRGEN DOA K 311 MO DEPRESS NOS 08/22/2014 OLIVIA AUGUSTINE M 311 MO DEPRESS NOS 08/22/2014 SHERRON VIRGEN DO K 311 MO DEPRESS NOS 11/05/2014 OLIVIA AUGUSTINE 296.32 MO DEPRESSIVE RECURRENT MODERATE 11/05/2014 YOCASTA VIRGEN DOA K 296.32 MO DEPRESSIVE RECURRENT MODERATE 02/18/2015 Ot 784.0 02/18/2015 Ot V81.5 02/18/2015 Ot 593.9 02/18/2015 Ot 598.9 02/18/2015 Ot V72.63 02/18/2015 Ot V72.83 02/18/2015 Ot V74.8 02/18/2015 Ot 348.9 02/18/2015 Ot 784.0 02/18/2015 Ot 452 02/18/2015 Ot 557.0 02/18/2015 Ot 789.59 02/18/2015 GILES CHRISTIANSON MD Ot 300.00 ANXIETY STATE NOS 02/18/2015 GILES CHRISTIANSON MD Ot 301.0 PARANOID PERSONALITY 02/18/2015 GILES CHRISTIANSON MD Ot 414.01 CORONARY ATHEROSCLEROSIS OF [place] CORON 02/18/2015 GILES CHRISTIANSON MD Ot 424.0 MITRAL VALVE DISORDER 02/18/2015 GILES CHRISTIANSON MD Ot 427.32 ATRIAL FLUTTER 02/18/2015 GILES CHRISTIANSON MD Ot 919.4 INSECT BITE NEC 02/18/2015 GILES CHRISTIANSON MD Ot E000.8 OTHER EXTERNAL CAUSE STATUS 02/18/2015 GILES CHRISTIANSON MD Ot E906.4 NONVENOM ARTHROPOD BITE 06/27/2017 SAJAN CRUZ MD, Ot F41.9 ANXIETY DISORDER, UNSPECIFIED 06/27/2017 SAJAN RCUZ MD Ot K21.9 GASTRO-ESOPHAGEAL REFLUX DISEASE WITHOUT 06/27/2017 SAJAN CRUZ MD Ot K57.90 DVRTCLOS OF INTEST, PART UNSP, W/O PERF 06/27/2017 SAJAN CRUZ MD, Ot K62.5 HEMORRHAGE OF ANUS AND RECTUM 06/27/2017 SAJAN CRUZ MD, Ot M47.9 SPONDYLOSIS, UNSPECIFIED 06/27/2017 SAJAN CRUZ MD Ot R10.32 LEFT LOWER QUADRANT PAIN 06/27/2017 SAJAN CRUZ MD Ot Z79.82 LONGTERM (CURRENT) USE OF ASPIRIN 06/27/2017 SAJAN CRUZ MD Ot Z90.49 ACQUIRED ABSENCE OF OTHER SPECIFIED PART 06/29/2017 SAJAN CRUZ MD, Ot F41.9 ANXIETY DISORDER, UNSPECIFIED 06/29/2017 SAJAN CRUZ MD, Ot K21.9 GASTRO-ESOPHAGEAL REFLUX DISEASE WITHOUT 06/29/2017 SAJAN CRUZ MD Ot K57.90 DVRTCLOS OF INTEST, PART UNSP, W/O PERF 06/29/2017 SAJAN CRUZ MD Ot K62.5 HEMORRHAGE OF ANUS AND RECTUM 06/29/2017 SAJAN CRUZ MD, Ot M47.9 SPONDYLOSIS, UNSPECIFIED 06/29/2017 SAJAN CRUZ MD Ot R10.32 LEFT LOWER QUADRANT PAIN 06/29/2017 SAJAN CRUZ MD Ot Z79.82 LONGTERM (CURRENT) USE OF ASPIRIN 06/29/2017 SAJAN CRUZ MD Ot Z90.49 ACQUIRED ABSENCE OF OTHER SPECIFIED PART 06/29/2017 SAJAN CRUZ MD, Ot F41.9 ANXIETY DISORDER, UNSPECIFIED 06/29/2017 SAJAN CRUZ MD Ot K21.9 GASTRO-ESOPHAGEAL REFLUX DISEASE WITHOUT 06/29/2017 SAJAN CRUZ MD Ot K57.90 DVRTCLOS OF INTEST, PART UNSP, W/O PERF 06/29/2017 SAJAN CRUZ MD, Ot K62.5 HEMORRHAGE OF ANUS AND RECTUM 06/29/2017 SAJAN CRUZ MD, Ot M47.9 SPONDYLOSIS, UNSPECIFIED 06/29/2017 SAJAN CRUZ MD, Ot R10.32 LEFT LOWER QUADRANT PAIN 06/29/2017 SAJAN CRUZ MD, Ot Z79.82 [employer] (CURRENT) USE OF ASPIRIN 06/29/2017 SAJAN CRUZ MD, Ot Z90.49 ACQUIRED ABSENCE OF OTHER SPECIFIED PART 06/30/2017 TERESA MENESES MD Ot K92.1 MELENA 06/30/2017 TERESA MENESES MD J Ot R10.9 UNSPECIFIED ABDOMINAL PAIN 06/30/2017 TERESA MENESES MD Ot K92.1 MELENA 06/30/2017 TERESA MENESES MD J Ot R10.9 UNSPECIFIED ABDOMINAL PAIN 07/12/2017 IMMANUEL FRANCO MD Ot R10.9 UNSPECIFIED ABDOMINAL PAIN 07/12/2017 IMMANUEL FRANCO MD Ot Z01.818 ENCOUNTER FOR OTHER PREPROCEDURAL EXAMIN 07/12/2017 IMMANUEL FRANCO MD Ot Z87.19 PERSONAL HISTORY OF OTHER DISEASES OF 07/12/2017 IMMANUEL FRANCO MD Ot R10.9 UNSPECIFIED ABDOMINAL PAIN 07/12/2017 IMMANUEL FRANCO MD Ot Z01.818 ENCOUNTER FOR OTHER PREPROCEDURAL EXAMIN 07/12/2017 IMMANUEL FRANCO MD Ot Z87.19 PERSONAL HISTORY OF OTHER DISEASES OF 07/14/2017 IMMANUEL FRANCO MD Ot F32.9 MAJOR DEPRESSIVE DISORDER, SINGLE EPISOD 07/14/2017 IMMANUEL FRANCO MD, Ot F41.9 ANXIETY DISORDER, UNSPECIFIED 07/14/2017 IMMANUEL FRANCO MD Ot I10 ESSENTIAL (PRIMARY) HYPERTENSION 07/14/2017 IMMANUEL FRANCO MD Ot I48.91 UNSPECIFIED ATRIAL FIBRILLATION 07/14/2017 IMMANUEL FRANCO MD, Ot K57.32 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 07/14/2017 IMMANUEL FRANCO MD, Ot K62.5 HEMORRHAGE OF ANUS AND RECTUM 07/14/2017 IMMANUEL FRANCO MD, Ot K64.1 SECOND DEGREE HEMORRHOIDS 07/14/2017 IMMANUEL FRANCO MD, Ot M54.5 LOW BACK PAIN 07/14/2017 IMMANUEL FRANCO MD, Ot Z79.82 LONGTERM (CURRENT) USE OF ASPIRIN 07/14/2017 IMMANUEL FRANCO MD, Ot Z79.899 OTHER LONGTERM (CURRENT) DRUG THERAPY 07/14/2017 IMMANUEL FRANCO MD, Ot Z86.010 PERSONAL HISTORY OF COLONIC POLYPS 07/14/2017 IMMANUEL FRANCO MD, Ot Z98.1 ARTHRODESIS STATUS 08/23/2017 JUAN MANUEL EVANS DO Ot B18.2 CHRONIC VIRAL HEPATITIS C 08/23/2017 JUAN MANUEL EVANS DO Ot F32.9 MAJOR DEPRESSIVE DISORDER, SINGLE EPISOD 08/23/2017 JUAN MANUEL EVANS DO Ot F41.9 ANXIETY DISORDER, UNSPECIFIED 08/23/2017 JAMILA EVANS DOI Ot I25.10 ATHSCL HEART DISEASE OF [place] CORONARY 08/23/2017 JAMILA EVANS DOI Ot I26.99 OTHER PULMONARY EMBOLISM WITHOUT ACUTE C 08/23/2017 JUAN MANUEL EVANS DO Ot I48.0 PAROXYSMAL ATRIAL FIBRILLATION 08/23/2017 JUAN MANUEL EVANS DO Ot K21.9 GASTRO-ESOPHAGEAL REFLUX DISEASE WITHOUT 08/23/2017 JAMILA EVANS DOI Ot R09.02 HYPOXEMIA 08/23/2017 JUAN MANUEL EVANS DO Ot Z86.718 PERSONAL HISTORY OF OTHER VENOUS THROMBO 08/23/2017 JUAN MANUEL EVANS DO Ot Z87.891 PERSONAL HISTORY OF NICOTINE DEPENDENCE 08/23/2017 JUAN MANUEL EVANS DO Ot Z90.81 ACQUIRED ABSENCE OF SPLEEN 08/23/2017 JUAN MANUEL EVANS DO Ot Z98.1 ARTHRODESIS STATUS 08/24/2017 JUAN MANUEL EVANS DO Ot B18.2 CHRONIC VIRAL HEPATITIS C 08/24/2017 JUAN MANUEL EVANS DO Ot F32.9 MAJOR DEPRESSIVE DISORDER, SINGLE EPISOD 08/24/2017 JAMILA EVANS DOI Ot F41.9 ANXIETY DISORDER, UNSPECIFIED 08/24/2017 NATHAN MELCHOR JUAN MANUEL Ot I25.10 ATHSCL HEART DISEASE OF [place] CORONARY 08/24/2017 JAMILA EVANS DOI Ot I26.99 OTHER PULMONARY EMBOLISM WITHOUT ACUTE C 08/24/2017 JUAN MANUEL EVANS DO Ot I48.0 PAROXYSMAL ATRIAL FIBRILLATION 08/24/2017 JUAN MANUEL EVANS DO Ot K21.9 GASTRO-ESOPHAGEAL REFLUX DISEASE WITHOUT 08/24/2017 JAMILA EVANS DOI Ot R09.02 HYPOXEMIA 08/24/2017 JUAN MANUEL EVANS DO Ot Z86.718 PERSONAL HISTORY OF OTHER VENOUS THROMBO 08/24/2017 JUAN MANUEL EVANS DO Ot Z87.891 PERSONAL HISTORY OF NICOTINE DEPENDENCE 08/24/2017 JUAN MANUEL EVANS DO Ot Z90.81 ACQUIRED ABSENCE OF SPLEEN 08/24/2017 JUAN MANUEL EVANS DO Ot Z98.1 ARTHRODESIS STATUS 08/24/2017 JUAN MANUEL EVANS DO Ot B18.2 CHRONIC VIRAL HEPATITIS C 08/24/2017 JUAN MANUEL EVANS DO Ot F32.9 MAJOR DEPRESSIVE DISORDER, SINGLE EPISOD 08/24/2017 JUAN MANUEL EVANS DO Ot F41.9 ANXIETY DISORDER, UNSPECIFIED 08/24/2017 JAUN MANUEL EVANS DO Ot I25.10 ATHSCL HEART DISEASE OF [place] CORONARY 08/24/2017 JAMILA EVANS DOI Ot I26.99 OTHER PULMONARY EMBOLISM WITHOUT ACUTE C 08/24/2017 JUAN MANUEL EVANS DO Ot I48.0 PAROXYSMAL ATRIAL FIBRILLATION 08/24/2017 JUAN MANUEL EVANS DO Ot K21.9 GASTRO-ESOPHAGEAL REFLUX DISEASE WITHOUT 08/24/2017 JAMILA EVANS DOI Ot R07.89 OTHER CHEST PAIN 08/24/2017 JUAN MANUEL EVANS DO Ot R09.02 HYPOXEMIA 08/24/2017 JUAN MANUEL EVANS DO Ot Z23 ENCOUNTER FOR IMMUNIZATION 08/24/2017 JUAN MANUEL EVANS DO Ot Z86.718 PERSONAL HISTORY OF OTHER VENOUS THROMBO 08/24/2017 JUAN MANUEL EVANS DO Ot Z87.891 PERSONAL HISTORY OF NICOTINE DEPENDENCE 08/24/2017 JUAN MANUEL EVANS DO Ot Z90.81 ACQUIRED ABSENCE OF SPLEEN 08/24/2017 JUAN MANUEL EVANS DO Ot Z98.1 ARTHRODESIS STATUS 09/01/2017 MAHI PANIAGUA DO Ot F41.9 ANXIETY DISORDER, UNSPECIFIED 09/01/2017 MAHI PANIAGUA DO Ot G43.909 MIGRAINE, UNSP, NOT INTRACTABLE, WITHOUT 09/01/2017 MAHI PANIAGUA DO Ot I26.99 OTHER PULMONARY EMBOLISM WITHOUT ACUTE C 09/01/2017 SIVA DO, MAHI K Ot I48.91 UNSPECIFIED ATRIAL FIBRILLATION 09/01/2017 SIVA MAHI K Ot K21.9 GASTRO-ESOPHAGEAL REFLUX DISEASE WITHOUT 09/01/2017 SIVA DO MAHI K Ot M47.9 SPONDYLOSIS, UNSPECIFIED 09/01/2017 SIVA DO MAHI K Ot M79.604 PAIN IN RIGHT LEG 09/01/2017 SIVA DOANILAA K Ot R25.2 CRAMP AND SPASM 09/01/2017 SIVA DOANILAA K Ot Z79.01 LONGTERM (CURRENT) USE OF ANTICOAGULANT 09/01/2017 SIVA DOMAHI K Ot Z79.82 [employer] (CURRENT) USE OF ASPIRIN 09/01/2017 SIVA MAHI MELCHOR Ot Z86.14 PERSONAL HISTORY OF METHICILLIN RESIS ST 09/01/2017 MAHI PANIAGUA DO Ot Z86.718 PERSONAL HISTORY OF OTHER VENOUS THROMBO 09/01/2017 MAHI PANIAGUA DO Ot Z87.891 PERSONAL HISTORY OF NICOTINE DEPENDENCE 09/08/2017 SIVA MAHI Syeda Ot F41.9 ANXIETY DISORDER, UNSPECIFIED 09/08/2017 SIVA DO MAHI K Ot G43.909 MIGRAINE, UNSP, NOT INTRACTABLE, WITHOUT 09/08/2017 SIVA DO MAHI K Ot I26.99 OTHER PULMONARY EMBOLISM WITHOUT ACUTE C 09/08/2017 SIVA DO MAHI K Ot I48.91 UNSPECIFIED ATRIAL FIBRILLATION 09/08/2017 ANILA PANIAGUA DOA Syeda Ot K21.9 GASTRO-ESOPHAGEAL REFLUX DISEASE WITHOUT 09/08/2017 SIVA DOMAHI Ot M47.9 SPONDYLOSIS, UNSPECIFIED 09/08/2017 SIVA DO MAHI Syeda Ot M79.604 PAIN IN RIGHT LEG 09/08/2017 SIVA DOMAHI Ot R25.2 CRAMP AND SPASM 09/08/2017 SIVA MAHI MELCHOR Ot Z79.01 LONGTERM (CURRENT) USE OF ANTICOAGULANT 09/08/2017 SIVA MAHI MELCHOR Ot Z79.82 [employer] (CURRENT) USE OF ASPIRIN 09/08/2017 SIVA MAHI MELCHOR Ot Z86.14 PERSONAL HISTORY OF METHICILLIN RESIS ST 09/08/2017 MAHI PANIAGUA DO Ot Z86.718 PERSONAL HISTORY OF OTHER VENOUS THROMBO 09/08/2017 MAHI PANIAGUA DO Ot Z87.891 PERSONAL HISTORY OF NICOTINE DEPENDENCE Procedures Code Description Performed By Performed On 45.23 COLONOSCOPY 02/16/2011 86.22 EXCIS DEBRIDE OF WOUND, INFECT, OR BURN 02/18/2011 86.04 OTHER SKIN SUBQ I D 03/23/2011 99073 PSYCH IND W/MED CK 20 09/06/2012 73610 ROUTINE VENIPUNCTURE 02/13/2014 61878 INR (IN HOUSE) 02/13/2014 45135 CBC 02/13/2014 00598 CMP 02/13/2014 2341450 GFR CALC (RESULT ONLY) 02/13/2014 57802 VITAMIN D 25-HYDROXY (D2,D3 , TOTAL) 02/13/2014 67100 VIT B 12 02/13/2014 35059 TSH 02/13/2014 TESTFRTOT TESTOSTERONE FREE AND TOTAL MALE 02/13/2014 44446 ROUTINE VENIPUNCTURE 02/19/2014 96444 LIPID PANEL 02/19/2014 J1080 Depo-Testosterone 200 mg/mL oil 03/12/2014 22989 THERAPUTIC INJ SQ/IM 04/11/2014 41711 THERAPUTIC INJ SQ/IM 05/08/2014 65332 THERAPUTIC INJ SQ/IM 06/20/2014 37835 THERAPUTIC INJ SQ/IM 06/20/2014 18206 ROUTINE VENIPUNCTURE 06/21/2014 08753 UA LONG DIP 06/21/2014 TESTFRTOT TESTOSTERONE FREE AND TOTAL MALE 06/22/2014 92017 TESTOSTERONE TOTAL MALES 07/23/2014 22225 THERAPUTIC INJ SQ/IM 07/23/2014 J1080 Depo-Testosterone 200 mg/mL oil 07/23/2014 09232 THERAPUTIC INJ SQ/IM 08/20/2014 39512 THERAPUTIC INJ SQ/IM 09/27/2014 71632 AMERITOX 11/05/2014 03079 THERAPUTIC INJ SQ/IM 12/21/2014 99.61 ATRIAL CARDIOVERSION 02/17/2015 37.22 LEFT HEART CARDIAC CATH 02/18/2015 88.42 CONTRAST AORTOGRAM 02/18/2015 88.53 LT HEART ANGIOCARDIOGRAM 02/18/2015 88.56 CORONAR ARTERIOGR-2 CATH 02/18/2015 Results Test Result Range Complete blood count (CBC) with automated white blood cell (WBC) differential - 06/27/17 19:40 Blood leukocytes automated count (number/volume) 9.0 10*3/uL 4.3-11.0 Blood erythrocytes automated count (number/volume) 5.16 10*6/uL 4.35-5.85 Venous blood hemoglobin measurement (mass/volume) 14.8 g/dL 13.3-17.7 Blood hematocrit (volume fraction) 44 % 40-54 Automated erythrocyte mean corpuscular volume 86 [foz_us] 80-99 Automated erythrocyte mean corpuscular hemoglobin (mass per erythrocyte) 29 pg 25-34 Automated erythrocyte mean corpuscular hemoglobin concentration measurement ( mass/volume) 34 g/dL 32-36 Automated erythrocyte distribution width ratio 14.6 % 10.0-14.5 Automated blood platelet count (count/volume) 421 10*3/uL 130-400 Automated blood platelet mean volume measurement 10.2 [foz_us] 7.4-10.4 Automated blood neutrophils/100 leukocytes 56 % 42-75 Automated blood lymphocytes/100 leukocytes 22 % 12-44 Blood monocytes/100 leukocytes 14 % 0-12 Automated blood eosinophils/100 leukocytes 8 % 0-10 Automated blood basophils/100 leukocytes 1 % 0-10 Blood neutrophils automated count (number/volume) 5.0 10*3 1.8-7.8 Blood lymphocytes automated count (number/volume) 1.9 10*3 1.0-4.0 Blood monocytes automated count (number/volume) 1.2 10*3 0.0-1.0 Automated eosinophil count 0.7 10*3/uL 0.0-0.3 Automated blood basophil count (count/volume) 0.1 10*3/uL 0.0-0.1 Comprehensive metabolic panel - 06/27/17 19:40 Serum or plasma sodium measurement (moles/volume) 139 mmol/L 135-145 Serum or plasma potassium measurement (moles/volume) 4.2 mmol/L 3.6-5.0 Serum or plasma chloride measurement (moles/volume) 107 mmol/L 98-107 Carbon dioxide 26 mmol/L 21-32 Serum or plasma anion gap determination (moles/volume) 6 mmol/L 5-14 Serum or plasma urea nitrogen measurement (mass/volume) 21 mg/dL 7-18 Serum or plasma creatinine measurement (mass/volume) 1.11 mg/dL 0.60-1.30 Serum or plasma urea nitrogen/creatinine mass ratio 19 NRG Serum or plasma creatinine measurement with calculation of estimated glomerular filtration rate > NRG Serum or plasma glucose measurement (mass/volume) 101 mg/dL 70-105 Serum or plasma calcium measurement (mass/volume) 8.8 mg/dL 8.5-10.1 Serum or plasma total bilirubin measurement (mass/volume) 0.4 mg/dL 0.1-1.0 Serum or plasma alkaline phosphatase measurement (enzymatic activity/volume) 71 U/L 40-136 Serum or plasma aspartate aminotransferase measurement (enzymatic activity/ volume) 31 U/L 5-34 Serum or plasma alanine aminotransferase measurement (enzymatic activity/volume ) 56 U/L 0-55 Serum or plasma protein measurement (mass/volume) 6.5 g/dL 6.4-8.2 Serum or plasma albumin measurement (mass/volume) 3.6 g/dL 3.2-4.5 Serum or plasma C reactive protein measurement (mass/volume) - 06/27/17 19:40 Serum or plasma C reactive protein measurement (mass/volume) 0.50 mg /dL 0.00-0.50 Methicillin resistant Staphylococcus aureus (MRSA) screening culture - 09:10 Methicillin resistant Staphylococcus aureus (MRSA) screening culture NEG [facility] Automated blood complete blood count (hemogram) panel - 08/21/17 09:19 Blood leukocytes automated count (number/volume) 12.1 10*3/uL 4.3-11.0 Blood erythrocytes automated count (number/volume) 5.14 10*6/uL 4.35-5.85 Venous blood hemoglobin measurement (mass/volume) 14.4 g/dL 13.3-17.7 Blood hematocrit (volume fraction) 43 % 40-54 Automated erythrocyte mean corpuscular volume 84 [foz_us] 80-99 Automated erythrocyte mean corpuscular hemoglobin (mass per erythrocyte) 28 pg 25-34 Automated erythrocyte mean corpuscular hemoglobin concentration measurement ( mass/volume) 34 g/dL 32-36 Automated erythrocyte distribution width ratio 13.5 % 10.0-14.5 Automated blood platelet count (count/volume) 417 10*3/uL 130-400 Automated blood platelet mean volume measurement 10.3 [foz_us] 7.4-10.4 PT panel in platelet poor plasma by coagulation assay - 08/21/17 09:19 Prothrombin time (PT) in platelet poor plasma by coagulation assay 13.0 s 12.2-14.7 INR in platelet poor plasma or blood by coagulation assay 1.0 0.8-1.4 Activated partial thromboplastin time (aPTT) in platelet poor plasma bycoagulation assay - 08/21/17 09:19 Activated partial thromboplastin time (aPTT) in platelet poor plasma bycoagulation assay 31 s 24-35 Fibrin D-dimer FEU measurement in platelet poor plasma (mass/volume) - 09:19 Fibrin D-dimer FEU measurement in platelet poor plasma (mass/volume) 1.49 ug/mL 0.00-0.49 Comprehensive metabolic panel - 08/21/17 09:19 Serum or plasma sodium measurement (moles/volume) 138 mmol/L 135-145 Serum or plasma potassium measurement (moles/volume) 4.5 mmol/L 3.6-5.0 Serum or plasma chloride measurement (moles/volume) 104 mmol/L 98-107 Carbon dioxide 26 mmol/L 21-32 Serum or plasma anion gap determination (moles/volume) 8 mmol/L 5-14 Serum or plasma urea nitrogen measurement (mass/volume) 14 mg/dL 7-18 Serum or plasma creatinine measurement (mass/volume) 1.03 mg/dL 0.60-1.30 Serum or plasma urea nitrogen/creatinine mass ratio 14 NRG Serum or plasma creatinine measurement with calculation of estimated glomerular filtration rate > NRG Serum or plasma glucose measurement (mass/volume) 111 mg/dL 70-105 Serum or plasma calcium measurement (mass/volume) 8.9 mg/dL 8.5-10.1 Serum or plasma total bilirubin measurement (mass/volume) 0.7 mg/dL 0.1-1.0 Serum or plasma alkaline phosphatase measurement (enzymatic activity/volume) 73 U/L 40-136 Serum or plasma aspartate aminotransferase measurement (enzymatic activity/ volume) 21 U/L 5-34 Serum or plasma alanine aminotransferase measurement (enzymatic activity/volume ) 32 U/L 0-55 Serum or plasma protein measurement (mass/volume) 6.6 g/dL 6.4-8.2 Serum or plasma albumin measurement (mass/volume) 3.6 g/dL 3.2-4.5 Serum or plasma phosphate measurement (mass/volume) - 08/21/17 09:19 Serum or plasma phosphate measurement (mass/volume) 2.7 mg/dL 2.3-4.7 Magnesium - 08/21/17 09:19 Magnesium 1.9 mg/dL 1.8-2.4 Serum or plasma troponin i.cardiac measurement (mass/volume) - 08/21/17 09:19 Serum or plasma troponin i.cardiac measurement (mass/volume) < ng/ mL <0.30 Serum or plasma lithium measurement (moles/volume) - 08/21/17 09:19 BNP level 106.7 pg/mL <100.0 Complete blood count (CBC) with automated white blood cell (WBC) differential - 08/22/17 04:09 Blood leukocytes automated count (number/volume) 9.8 10*3/uL 4.3-11.0 Blood erythrocytes automated count (number/volume) 4.70 10*6/uL 4.35-5.85 Venous blood hemoglobin measurement (mass/volume) 13.3 g/dL 13.3-17.7 Blood hematocrit (volume fraction) 40 % 40-54 Automated erythrocyte mean corpuscular volume 86 [foz_us] 80-99 Automated erythrocyte mean corpuscular hemoglobin (mass per erythrocyte) 28 pg 25-34 Automated erythrocyte mean corpuscular hemoglobin concentration measurement ( mass/volume) 33 g/dL 32-36 Automated erythrocyte distribution width ratio 13.4 % 10.0-14.5 Automated blood platelet count (count/volume) 360 10*3/uL 130-400 Automated blood platelet mean volume measurement 10.4 [foz_us] 7.4-10.4 Automated blood neutrophils/100 leukocytes 52 % 42-75 Automated blood lymphocytes/100 leukocytes 20 % 12-44 Blood monocytes/100 leukocytes 21 % 0-12 Automated blood eosinophils/100 leukocytes 6 % 0-10 Automated blood basophils/100 leukocytes 1 % 0-10 Blood neutrophils automated count (number/volume) 5.1 10*3 1.8-7.8 Blood lymphocytes automated count (number/volume) 1.9 10*3 1.0-4.0 Blood monocytes automated count (number/volume) 2.1 10*3 0.0-1.0 Automated eosinophil count 0.6 10*3/uL 0.0-0.3 Automated blood basophil count (count/volume) 0.1 10*3/uL 0.0-0.1 Whole blood basic metabolic panel - 08/22/17 04:09 Serum or plasma sodium measurement (moles/volume) 137 mmol/L 135-145 Serum or plasma potassium measurement (moles/volume) 3.9 mmol/L 3.6-5.0 Serum or plasma chloride measurement (moles/volume) 105 mmol/L 98-107 Carbon dioxide 27 mmol/L 21-32 Serum or plasma anion gap determination (moles/volume) 5 mmol/L 5-14 Serum or plasma urea nitrogen measurement (mass/volume) 15 mg/dL 7-18 Serum or plasma creatinine measurement (mass/volume) 1.10 mg/dL 0.60-1.30 Serum or plasma urea nitrogen/creatinine mass ratio 14 NRG Serum or plasma creatinine measurement with calculation of estimated glomerular filtration rate > NRG Serum or plasma glucose measurement (mass/volume) 99 mg/dL 70-105 Serum or plasma calcium measurement (mass/volume) 8.5 mg/dL 8.5-10.1 Serum or plasma phosphate measurement (mass/volume) - 08/22/17 04:09 Serum or plasma phosphate measurement (mass/volume) 3.0 mg/dL 2.3-4.7 Magnesium - 08/22/17 04:09 Magnesium 1.8 mg/dL 1.8-2.4 Blood or tissue F5 gene p.R506Q detection by molecular genetics method - 11:01 Blood or tissue F5 gene p.R506Q detection by molecular genetics method Negative Negative Coagulation factor 5 activated measurement (units/volume) in platelet poor plasma by coagulation assay See Footnote [facility] Prothrombin gene [id number] mutation detection - 08/23/17 11:01 Prothrombin gene [id number] mutation detection See footnote [facility] Comprehensive metabolic panel - 09/01/17 21:21 Serum or plasma sodium measurement (moles/volume) 138 mmol/L 135-145 Serum or plasma potassium measurement (moles/volume) 5.4 mmol/L 3.6-5.0 Serum or plasma chloride measurement (moles/volume) 104 mmol/L 98-107 Carbon dioxide 22 mmol/L 21-32 Serum or plasma anion gap determination (moles/volume) 12 mmol/L 5-14 Serum or plasma urea nitrogen measurement (mass/volume) 19 mg/dL 7-18 Serum or plasma creatinine measurement (mass/volume) 1.12 mg/dL 0.60-1.30 Serum or plasma urea nitrogen/creatinine mass ratio 17 NRG Serum or plasma creatinine measurement with calculation of estimated glomerular filtration rate > NRG Serum or plasma glucose measurement (mass/volume) 96 mg/dL 70-105 Serum or plasma calcium measurement (mass/volume) 9.2 mg/dL 8.5-10.1 Serum or plasma total bilirubin measurement (mass/volume) 0.2 mg/dL 0.1-1.0 Serum or plasma alkaline phosphatase measurement (enzymatic activity/volume) 88 U/L 40-136 Serum or plasma aspartate aminotransferase measurement (enzymatic activity/ volume) 29 U/L 5-34 Serum or plasma alanine aminotransferase measurement (enzymatic activity/volume ) 31 U/L 0-55 Serum or plasma protein measurement (mass/volume) 7.4 g/dL 6.4-8.2 Serum or plasma albumin measurement (mass/volume) 3.8 g/dL 3.2-4.5 Complete blood count (CBC) with automated white blood cell (WBC) differential - 09/01/17 21:21 Blood leukocytes automated count (number/volume) 12.0 10*3/uL 4.3-11.0 Blood erythrocytes automated count (number/volume) 5.60 10*6/uL 4.35-5.85 Venous blood hemoglobin measurement (mass/volume) 15.7 g/dL 13.3-17.7 Blood hematocrit (volume fraction) 47 % 40-54 Automated erythrocyte mean corpuscular volume 83 [foz_us] 80-99 Automated erythrocyte mean corpuscular hemoglobin (mass per erythrocyte) 28 pg 25-34 Automated erythrocyte mean corpuscular hemoglobin concentration measurement ( mass/volume) 34 g/dL 32-36 Automated erythrocyte distribution width ratio 14.2 % 10.0-14.5 Automated blood platelet count (count/volume) 653 10*3/uL 130-400 Automated blood platelet mean volume measurement 10.0 [foz_us] 7.4-10.4 Automated blood neutrophils/100 leukocytes 60 % 42-75 Automated blood lymphocytes/100 leukocytes 19 % 12-44 Blood monocytes/100 leukocytes 15 % 0-12 Automated blood eosinophils/100 leukocytes 5 % 0-10 Automated blood basophils/100 leukocytes 1 % 0-10 Blood neutrophils automated count (number/volume) 7.2 10*3 1.8-7.8 Blood lymphocytes automated count (number/volume) 2.3 10*3 1.0-4.0 Blood monocytes automated count (number/volume) 1.8 10*3 0.0-1.0 Automated eosinophil count 0.6 10*3/uL 0.0-0.3 Automated blood basophil count (count/volume) 0.1 10*3/uL 0.0-0.1 PT panel in platelet poor plasma by coagulation assay - 09/01/17 21:21 Prothrombin time (PT) in platelet poor plasma by coagulation assay 11.8 s 12.2-14.7 INR in platelet poor plasma or blood by coagulation assay 0.9 0.8-1.4 Magnesium - 09/01/17 21:21 Magnesium 3.1 mg/dL 1.8-2.4 Serum or plasma troponin i.cardiac measurement (mass/volume) - 09/01/17 21:21 Serum or plasma troponin i.cardiac measurement (mass/volume) < ng/ mL <0.30 Activated partial thromboplastin time (aPTT) in platelet poor plasma bycoagulation assay - 09/01/17 21:21 Activated partial thromboplastin time (aPTT) in platelet poor plasma bycoagulation assay 25 s 24-35 Serum or plasma lithium measurement (moles/volume) - 09/01/17 21:21 BNP level < pg/mL <100.0 Complete blood count (CBC) with automated white blood cell (WBC) differential - 09/24/17 04:55 Blood leukocytes automated count (number/volume) 9.2 10*3/uL 4.3-11.0 Blood erythrocytes automated count (number/volume) 5.15 10*6/uL 4.35-5.85 Venous blood hemoglobin measurement (mass/volume) 14.3 g/dL 13.3-17.7 Blood hematocrit (volume fraction) 38 % 40-54 Automated erythrocyte mean corpuscular volume 73 [foz_us] 80-99 Automated erythrocyte mean corpuscular hemoglobin (mass per erythrocyte) 28 pg 25-34 Automated erythrocyte mean corpuscular hemoglobin concentration measurement ( mass/volume) 38 g/dL 32-36 Automated erythrocyte distribution width ratio 14.0 % 10.0-14.5 Automated blood platelet count (count/volume) 376 10*3/uL 130-400 Automated blood platelet mean volume measurement 9.3 [foz_us] 7.4-10.4 Automated blood neutrophils/100 leukocytes 56 % 42-75 Automated blood lymphocytes/100 leukocytes 23 % 12-44 Blood monocytes/100 leukocytes 17 % 0-12 Automated blood eosinophils/100 leukocytes 4 % 0-10 Automated blood basophils/100 leukocytes 1 % 0-10 Blood neutrophils automated count (number/volume) 5.1 10*3 1.8-7.8 Blood lymphocytes automated count (number/volume) 2.2 10*3 1.0-4.0 Blood monocytes automated count (number/volume) 1.5 10*3 0.0-1.0 Automated eosinophil count 0.3 10*3/uL 0.0-0.3 Automated blood basophil count (count/volume) 0.1 10*3/uL 0.0-0.1 Whole blood basic metabolic panel - 09/24/17 04:55 Serum or plasma sodium measurement (moles/volume) 140 mmol/L 135-145 Serum or plasma potassium measurement (moles/volume) 4.3 mmol/L 3.6-5.0 Serum or plasma chloride measurement (moles/volume) 107 mmol/L 98-107 Carbon dioxide 23 mmol/L 21-32 Serum or plasma anion gap determination (moles/volume) 10 mmol/L 5-14 Serum or plasma urea nitrogen measurement (mass/volume) 16 mg/dL 7-18 Serum or plasma creatinine measurement (mass/volume) 0.91 mg/dL 0.60-1.30 Serum or plasma urea nitrogen/creatinine mass ratio 18 NRG Serum or plasma creatinine measurement with calculation of estimated glomerular filtration rate > NRG Serum or plasma glucose measurement (mass/volume) 102 mg/dL 70-105 Serum or plasma calcium measurement (mass/volume) 8.7 mg/dL 8.5-10.1 Magnesium - 09/24/17 04:55 Magnesium 2.1 mg/dL 1.8-2.4 Serum or plasma troponin i.cardiac measurement (mass/volume) - 09/24/17 04:55 Serum or plasma troponin i.cardiac measurement (mass/volume) < ng/ mL <0.30 Methicillin resistant Staphylococcus aureus (MRSA) screening culture - 08:28 Methicillin resistant Staphylococcus aureus (MRSA) screening culture NEG NRG Encounters ACCT No. Visit Date/Time Discharge Status Pt. Type Provider Facility Loc./Unit Complaint [id number] 12/21/2014 14:36:00 12/21/2014 23:59:59 CLS Outpatient PARAM MELCHOR SHERRON Landa [id number] 11/05/2014 10:03:00 11/05/2014 23:59:59 CLS Outpatient PARAM MELCHOR SHERRON Landa [id number] 11/05/2014 09:04:00 11/05/2014 23:59:59 CLS Outpatient OLIVIA AUGUSTINE [id number] 09/27/2014 12:57:00 09/27/2014 23:59:59 CLS Outpatient PARAM MELCHORSHERRON [id number] 08/22/2014 08:19:00 08/22/2014 23:59:59 CLS Outpatient OLIVIA AUGUSTINE [id number] 08/20/2014 11:14:00 08/20/2014 23:59:59 CLS Outpatient PARAM MELCHORSHERRON [id number] 08/20/2014 10:45:00 08/20/2014 23:59:59 CLS Outpatient VIRGEN DOSHERRON [id number] 07/23/2014 12:53:00 07/23/2014 23:59:59 CLS Outpatient VIRGEN DOSHERRON [id number] 07/23/2014 12:53:00 07/23/2014 23:59:59 CLS Outpatient VIRGEN DOSHERRON [id number] 06/21/2014 11:51:00 06/21/2014 23:59:59 CLS Outpatient VIRGEN DOSHERRON [id number] 06/20/2014 09:06:00 06/20/2014 23:59:59 CLS Outpatient VIRGEN DOSHERRON [id number] 06/05/2014 11:28:00 06/05/2014 23:59:59 CLS Outpatient VIRGEN DOSHERRON [id number] 05/08/2014 13:37:00 05/08/2014 23:59:59 CLS Outpatient VIRGEN DOSHERRON [id number] 04/11/2014 12:20:00 04/11/2014 23:59:59 CLS Outpatient VIRGEN DOSHERRON [id number] 03/12/2014 09:18:00 03/12/2014 23:59:59 CLS Outpatient VIRGEN DOSHERRON [id number] 02/19/2014 08:24:00 02/19/2014 23:59:59 CLS Outpatient RYAN HALL APRN [id number] 02/13/2014 08:48:00 02/13/2014 23:59:59 CLS Outpatient SHERRON VIRGEN DO [id number] 12/12/2013 16:22:00 12/12/2013 23:59:59 CLS Outpatient BRENNEN MICHELE APRN [id number] 10/04/2013 09:47:00 10/04/2013 23:59:59 CLS Outpatient BRENNEN MICHELE APRN [id number] 01/23/2013 11:08:00 01/23/2013 23:59:59 CLS Outpatient BRENNEN MICHELE APRN [id number] 09/06/2012 10:35:00 09/06/2012 23:59:59 CLS Outpatient BRENNEN MICHELE APRN [id number] 04/08/2012 09:14:00 04/08/2012 23:59:59 CLS Outpatient [id number] 01/10/2013 11:04:00 Document Registration [id number] 09/01/2017 21:13:00 09/01/2017 23:09:00 DIS Emergency MAHI PANIAGUA DO [facility] ER LEG CRAMPS;CHEST PAIN; BLOOD CLOTS [id number] 08/21/2017 08:27:00 08/24/2017 13:45:00 DIS Inpatient EVANSJUAN MANUEL MILLER DO [facility] 4TH PE,HYPOXIA [id number] 07/14/2017 09:27:00 07/14/2017 13:45:00 DIS Outpatient IMMANUEL FRANCO MD [facility] ENDO ABD. PAIN/HX DIVERTICULITIS [id number] 07/12/2017 05:37:00 07/12/2017 13:22:00 DIS Outpatient IMMANUEL FRANCO MD [facility] PREOP ABD. PAIN/HX DIVERTICULITIS [id number] 06/28/2017 20:15:00 06/28/2017 21:29:00 DIS Outpatient TERESA MENESES MD [facility] ER ABD PAIN/PASSING BLOOD IN STOOL [id number] 06/27/2017 19:26:00 06/27/2017 22:19:00 DIS Emergency ANTHONY DRAPER, SAJAN Estevez [facility] ER AB PAIN [id number] 05/13/2017 11:16:00 05/13/2017 23:59:59 CLS Preadmit MARK DRAPER, NAHOMI De La Cruz [facility] RAD MASS OF SINUS [id number] 02/16/2015 22:13:00 02/18/2015 12:04:00 DIS Inpatient MEGHAN DRAPER, GILES Caal [facility] CSD TACHYCARDIA [id number] 09/24/2017 05:05:00 Document Registration [id number] 02/18/2015 08:22:00 Document Registration [id number] 02/18/2015 08:21:00 Document Registration [id number] 02/18/2015 08:21:00 Document Registration [id number] 02/18/2015 08:21:00 Document Registration [id number] 09/20/2011 01:05:00 Document Registration [id number] 09/06/2011 00:55:00 Document Registration [id number] 04/10/2011 10:45:00 Document Registration [id number] 02/23/2011 16:44:00 Document Registration [id number] 02/21/2011 17:19:00 Document Registration [id number] 02/21/2011 08:45:00 Document Registration [id number] 02/14/2011 14:03:00 Document Registration [id number] 02/01/2011 20:31:00 Document Registration [id number] 10/29/2010 19:11:00 Document Registration [id number] 02/11/2010 06:03:00 Document Registration
[2017-09-25 20:25] LABS: BASOPHILS # (AUTO) 0.1 10^3/uL (0.0-0.1); BASOPHILS % (AUTO) 1 % (0-10); EOSINOPHILS # (AUTO) 0.6 10^3/uL (0.0-0.3); EOSINOPHILS % (AUTO) 6 % (0-10); HEMATOCRIT 43 % (40-54); HEMOGLOBIN 15.2 G/DL (13.3-17.7); LYMPHOCYTES # (AUTO) 2.2 X 10^3 (1.0-4.0); LYMPHOCYTES % (AUTO) 23 % (12-44); MEAN CORPUSCULAR HEMOGLOBIN 28 PG (25-34); MEAN CORPUSCULAR HGB CONC 35 G/DL (32-36); MEAN CORPUSCULAR VOLUME 79 FL (80-99); MEAN PLATELET VOLUME 9.6 FL (7.4-10.4); MONOCYTES # (AUTO) 1.6 X 10^3 (0.0-1.0); MONOCYTES % (AUTO) 16 % (0-12); NEUTROPHILS # (AUTO) 5.2 X 10^3 (1.8-7.8); NEUTROPHILS % (AUTO) 54 % (42-75); PLATELET COUNT 399 10^3/uL (130-400); RED BLOOD COUNT 5.49 10^6/uL (4.35-5.85); RED CELL DISTRIBUTION WIDTH 14.2 % (10.0-14.5); WHITE BLOOD COUNT 9.6 10^3/uL (4.3-11.0)
[2017-09-25] MEDS ORDERED: NS IV 1000 ML 1,000 ML IV ONE (20:29)
[2017-09-25] MEDS ORDERED: ASPIRIN 81 MG CHEW (CHILDREN'S ASA) PO ONE (20:30)
[2017-09-25 20:39] LABS: INR 0.9 (0.8-1.4); PROTHROMBIN TIME PATIENT 12.6 SEC (12.2-14.7)
[2017-09-25] MEDS ORDERED: NS 100 ML (IVPB) BAG IV ONE (20:45)
[2017-09-25] MEDS ORDERED: IOHEXOL 350 MG/ML 150 ML (OMNIPAQUE 350) VIAL IV ONE (20:45)
[2017-09-25 20:53] LABS: ALANINE AMINOTRANSFERASE 30 U/L (0-55); ALBUMIN 3.8 GM/DL (3.2-4.5); ALKALINE PHOSPHATASE 85 U/L (40-136); BILIRUBIN,TOTAL 0.3 MG/DL (0.1-1.0); BUN/CREATININE RATIO 13; CALCIUM 9.2 MG/DL (8.5-10.1); CARBON DIOXIDE 25 MMOL/L (21-32); CHLORIDE 105 MMOL/L (98-107); CREATININE SERUM 1.04 MG/DL (0.60-1.30); GFR ESTIMATED > 60; GLUCOSE 103 MG/DL (70-105); MAGNESIUM 2.1 MG/DL (1.8-2.4); POTASSIUM 4.1 MMOL/L (3.6-5.0); SODIUM 141 MMOL/L (135-145); TOTAL PROTEIN 6.9 GM/DL (6.4-8.2)
[2017-09-25 21:00] LABS: MYOGLOBIN SERUM 53.8 NG/ML (10.0-92.0)
--- NOTE | 2017-09-25 21:15 | Diagnostic Imaging Report ---
PROCEDURE: CT angiography of the chest with contrast. TECHNIQUE: Multiple contiguous axial images were obtained through the chest after uneventful bolus administration of intravenous contrast. Reconstructed CTA MIP acquisitions were also performed. INDICATION: History of blood clots. Chest pain. COMPARISON: Prior CT angiogram from 09/01/2017. FINDINGS: There is adequate opacification demonstrated of the pulmonary arterial tree. There is no filling defect within the pulmonary arteries on today's examination to suggest embolism. The thoracic aorta is unremarkable. Heart size is normal. There is no pericardial effusion. There are dependent atelectatic changes at both lung bases. There is no focal alveolar consolidation or air bronchograms. There is no effusion or evidence of a pneumothorax. There are no abnormally enlarged mediastinal, hilar or axillary lymph nodes. The visualized portion of the upper abdomen demonstrates no acute process. There are degenerative features within the spine without suspicious or acute osseous abnormality. IMPRESSION: 1. No CT angiographic evidence of pulmonary embolism. 2. Other than dependent atelectasis, the lungs appear clear. Dictated by: Dictated on workstation # [id number]
--- NOTE | 2017-09-25 21:21 | Diagnostic Imaging Report ---
EXAMINATION: Single view of the chest. INDICATION: Chest pain. COMPARISON: Correlation made with a CT from earlier the same day. FINDINGS: There are linear opacities at both lung bases, most suggestive of discoid atelectasis. There is no effusion. There is no pneumothorax. Heart size and mediastinal contours are unremarkable. IMPRESSION: Low lung volumes with bilateral basilar discoid atelectasis. Dictated by: Dictated on workstation # [id number]
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
[2017-09-25 21:54] VITALS: BP 148/109
== END 2017-09-25 21:54 | disposition home or self-care (01) ==
LOC: EDUNIT# 20:07 → ER 20:08
DX: F41.9 Anxiety disorder, unspecified (principal); I48.91 Unspecified atrial fibrillation; M47.9 Spondylosis, unspecified; K21.9 Gastro-esophageal reflux disease without esophagitis; G43.909 Migraine, unspecified, not intractable, without status migrainosus; Z87.19 Personal history of other diseases of the digestive system; Z90.49 Acquired absence of other specified parts of digestive tract; Z87.891 Personal history of nicotine dependence; Z86.711 Personal history of pulmonary embolism; Z86.718 Personal history of other venous thrombosis and embolism; Z79.02 Long term (current) use of antithrombotics/antiplatelets
CPT/HCPCS: 36415; 71045; 71275; 80053; 83735; 83874; 83880; 84484; 85025; 85610; 85730; 93005; 93041

== ENCOUNTER → 2017-11-12 | Outpatient (CLI) | payer MEDICAID ==
[2017-11-12 12:01] LABS: BASOPHILS # (AUTO) 0.1 10^3/uL (0.0-0.1); BASOPHILS % (AUTO) 1 % (0-10); EOSINOPHILS # (AUTO) 0.3 10^3/uL (0.0-0.3); EOSINOPHILS % (AUTO) 3 % (0-10); HEMATOCRIT 46 % (40-54); HEMOGLOBIN 16.2 G/DL (13.3-17.7); LYMPHOCYTES # (AUTO) 1.9 X 10^3 (1.0-4.0); LYMPHOCYTES % (AUTO) 22 % (12-44); MEAN CORPUSCULAR HEMOGLOBIN 28 PG (25-34); MEAN CORPUSCULAR HGB CONC 35 G/DL (32-36); MEAN CORPUSCULAR VOLUME 81 FL (80-99); MONOCYTES # (AUTO) 1.2 X 10^3 (0.0-1.0); MONOCYTES % (AUTO) 14 % (0-12); NEUTROPHILS # (AUTO) 5.3 X 10^3 (1.8-7.8); NEUTROPHILS % (AUTO) 60 % (42-75); PLATELET COUNT 490 10^3/uL (130-400); RED BLOOD COUNT 5.75 10^6/uL (4.35-5.85); RED CELL DISTRIBUTION WIDTH 16.3 % (10.0-14.5); WHITE BLOOD COUNT 8.8 10^3/uL (4.3-11.0)
[2017-11-12 12:17] LABS: ALANINE AMINOTRANSFERASE 30 U/L (0-55); ALKALINE PHOSPHATASE 87 U/L (40-136); BILIRUBIN,TOTAL 0.5 MG/DL (0.1-1.0); BUN/CREATININE RATIO 13; CALCIUM 9.5 MG/DL (8.5-10.1); CARBON DIOXIDE 24 MMOL/L (21-32); CHLORIDE 107 MMOL/L (98-107); GFR ESTIMATED > 60; GLUCOSE 93 MG/DL (70-105); POTASSIUM 4.5 MMOL/L (3.6-5.0); SODIUM 139 MMOL/L (135-145); TOTAL PROTEIN 6.8 GM/DL (6.4-8.2)
== END ==
LOC: LAB 11:37
PROVIDERS: ATTEND Internal Medicine Gastroenterology
DX: B18.2 Chronic viral hepatitis C (principal)
CPT/HCPCS: 36415; 80053; 85025; 87340; 87522; 87902

== ENCOUNTER → 2017-11-22 | Outpatient (CLI) | payer MEDICAID ==
--- NOTE | 2017-11-22 11:28 | Diagnostic Imaging Report ---
INDICATION: Chronic back pain. TIME OF EXAM: 11:16 a.m. Three views of the lumbar spine were obtained. Curvature and alignment is normal. The vertebral body heights are maintained. Disc spaces are fairly well-preserved. There is very minimal anterior spurring present at the L4 and L3 levels. Mild atherosclerotic calcifications in the abdominal aorta are identified. IMPRESSION: Very mild lumbar spondylosis. No acute bony abnormality is detected. Dictated by: Dictated on workstation # [id number]
--- NOTE | 2017-11-22 11:28 | Diagnostic Imaging Report ---
INDICATION: Chronic neck pain and back pain. TIME OF EXAM: 11:30 AM FINDINGS: Curvature and alignment of the cervical spine is normal. There is osseous fusion between the C6 and C7 vertebral bodies. There are severe degenerative changes at the C5-C6 level, with significant disc space narrowing and marginal osteophyte formation. Milder degenerative disc disease C3-C4 level is seen. The prevertebral tissues are normal. The odontoid is intact. No fractures are identified. IMPRESSION: Severe cervical spondylosis as well as postsurgical changes, as described. No acute bony abnormality is detected. Dictated by: Dictated on workstation # [id number]
== END ==
LOC: RAD 10:40
PROVIDERS: ATTEND Nurse Practitioner Family
DX: M50.31 Other cervical disc degeneration, high cervical region (principal); M47.812 Spondylosis without myelopathy or radiculopathy, cervical region; M47.816 Spondylosis without myelopathy or radiculopathy, lumbar region; Z98.1 Arthrodesis status
CPT/HCPCS: 72040; 72100

== ENCOUNTER → 2018-02-18 | Outpatient (CLI) | payer MEDICAID ==
[~2018-02-18] MED LIST changes: +SENN8.8S6 PO; -SENN8.8S7 PO
--- NOTE | 2018-02-18 10:06 | Diagnostic Imaging Report ---
Indication: Groin pain and hernia. Technique: High-resolution real time imaging of both testicles was performed. Right testicle measures 4.8 x 2.6 x 3.3 cm and the left chest measures 4.6 x 2.3 x 3.6 cm. Both testes demonstrate homogeneous echotexture. No discrete testicular mass is identified. There is blood flow bilaterally. There is a 5 mm epididymal cyst on the left. Small bilateral hydroceles are present. There also appears to be a left varicocele. Impression: 1. No evidence of testicular mass or vascular compromise. 2. Small left epididymal head cyst. 3. Small bilateral hydroceles. 4. Left varicocele. Dictated by: Dictated on workstation # [id number]
== END ==
LOC: RAD 08:28
PROVIDERS: ATTEND Nurse Practitioner Family
DX: N50.3 Cyst of epididymis (principal); N43.3 Hydrocele, unspecified; I86.1 Scrotal varices; K46.9 Unspecified abdominal hernia without obstruction or gangrene
CPT/HCPCS: 76870

== ENCOUNTER → 2018-06-24 | Outpatient (CLI) | payer MEDICAID ==
[~2018-06-24] MED LIST changes: +HYDR-4226 PO; -HYDR-757 PO
[2018-06-24 12:44] LABS: BASOPHILS # (AUTO) 0.1 10^3/uL (0.0-0.1); BASOPHILS % (AUTO) 1 % (0-10); EOSINOPHILS # (AUTO) 0.4 10^3/uL (0.0-0.3); EOSINOPHILS % (AUTO) 5 % (0-10); HEMATOCRIT 47 % (40-54); HEMOGLOBIN 16.3 G/DL (13.3-17.7); LYMPHOCYTES # (AUTO) 1.7 X 10^3 (1.0-4.0); LYMPHOCYTES % (AUTO) 21 % (12-44); MEAN CORPUSCULAR HEMOGLOBIN 28 PG (25-34); MEAN CORPUSCULAR HGB CONC 35 G/DL (32-36); MEAN CORPUSCULAR VOLUME 82 FL (80-99); MEAN PLATELET VOLUME 9.9 FL (7.4-10.4); MONOCYTES # (AUTO) 1.2 X 10^3 (0.0-1.0); MONOCYTES % (AUTO) 15 % (0-12); NEUTROPHILS # (AUTO) 4.7 X 10^3 (1.8-7.8); NEUTROPHILS % (AUTO) 58 % (42-75); PLATELET COUNT 478 10^3/uL (130-400); RED BLOOD COUNT 5.75 10^6/uL (4.35-5.85); WHITE BLOOD COUNT 8.1 10^3/uL (4.3-11.0)
[2018-06-24 12:55] LABS: INR 0.9 (0.8-1.4); PROTHROMBIN TIME PATIENT 12.2 SEC (12.2-14.7)
[2018-06-24 13:02] LABS: ALANINE AMINOTRANSFERASE 15 U/L (0-55); ALBUMIN 3.9 GM/DL (3.2-4.5); ALKALINE PHOSPHATASE 71 U/L (40-136); BILIRUBIN,TOTAL 0.3 MG/DL (0.1-1.0); BUN/CREATININE RATIO 12; CARBON DIOXIDE 21 MMOL/L (21-32); CHLORIDE 108 MMOL/L (98-107); CREATININE SERUM 1.18 MG/DL (0.60-1.30); GFR ESTIMATED > 60; GLUCOSE 88 MG/DL (70-105); POTASSIUM 4.3 MMOL/L (3.6-5.0); SODIUM 138 MMOL/L (135-145); TOTAL PROTEIN 6.9 GM/DL (6.4-8.2)
== END ==
LOC: LAB 12:24
PROVIDERS: ATTEND Internal Medicine Gastroenterology
DX: B18.2 Chronic viral hepatitis C (principal)
CPT/HCPCS: 36415; 80053; 82105; 85025; 85610; 87522

== ENCOUNTER → 2018-08-03 | Outpatient (RCR) | payer MEDICAID ==
[~2018-08-03] MED LIST changes: +METR-197 PO; -METR500T21 PO
== END | disposition home or self-care (01) ==
LOC: CR3 07-04 14:30
PROVIDERS: ATTEND Nurse Practitioner Family
DX: Z01.818 Encounter for other preprocedural examination (principal)

== ENCOUNTER 2018-08-05 08:18 | Outpatient (RCR) | payer MEDICAID | END 2018-09-04 | disposition home or self-care (01) | LOC: CR3 08:18 | PROVIDERS: ATTEND Nurse Practitioner Family | DX: Z29.8 Encounter for other specified prophylactic measures (principal) ==

== ENCOUNTER → 2018-09-02 | Outpatient (CLI) | payer MEDICAID ==
--- NOTE | 2018-09-02 14:15 | Diagnostic Imaging Report ---
PROCEDURE: US Thyroid. TECHNIQUE: Multiple real-time grayscale images were obtained of the thyroid in various projections. INDICATION: Elevated TSH. The right thyroid lobe 4.9 x 3.3 x 2.0 cm. Left lobe 5.5 x 2.5 x 1.8 cm. Parenchymal echotexture was homogenous. There was no solid or cystic mass and the color Doppler blood flow is normal. IMPRESSION: Normal sonographic appearance of the nonfocal thyroid. Dictated by: Dictated on workstation # [id number]
== END ==
LOC: RAD 10:40
PROVIDERS: ATTEND Nurse Practitioner Family
DX: R94.6 Abnormal results of thyroid function studies (principal)
CPT/HCPCS: 76536

== ENCOUNTER → 2018-10-04 | Outpatient (CLI) | payer MEDICAID ==
[2018-10-04 10:49] LABS: BASOPHILS # (AUTO) 0.1 10^3/uL (0.0-0.1); BASOPHILS % (AUTO) 1 % (0-10); EOSINOPHILS # (AUTO) 0.4 10^3/uL (0.0-0.3); EOSINOPHILS % (AUTO) 4 % (0-10); HEMATOCRIT 48 % (40-54); HEMOGLOBIN 16.1 G/DL (13.3-17.7); LYMPHOCYTES # (AUTO) 1.6 X 10^3 (1.0-4.0); LYMPHOCYTES % (AUTO) 17 % (12-44); MEAN CORPUSCULAR HEMOGLOBIN 29 PG (25-34); MEAN CORPUSCULAR HGB CONC 34 G/DL (32-36); MEAN CORPUSCULAR VOLUME 84 FL (80-99); MEAN PLATELET VOLUME 10.4 FL (7.4-10.4); MONOCYTES # (AUTO) 1.2 X 10^3 (0.0-1.0); MONOCYTES % (AUTO) 12 % (0-12); NEUTROPHILS # (AUTO) 6.2 X 10^3 (1.8-7.8); NEUTROPHILS % (AUTO) 65 % (42-75); PLATELET COUNT 438 10^3/uL (130-400); RED BLOOD COUNT 5.64 10^6/uL (4.35-5.85); RED CELL DISTRIBUTION WIDTH 15.7 % (10.0-14.5); WHITE BLOOD COUNT 9.4 10^3/uL (4.3-11.0)
[2018-10-04 11:09] LABS: ALANINE AMINOTRANSFERASE 16 U/L (0-55); ALBUMIN 3.8 GM/DL (3.2-4.5); ALKALINE PHOSPHATASE 68 U/L (40-136); BILIRUBIN,TOTAL 0.3 MG/DL (0.1-1.0); BUN/CREATININE RATIO 16; CALCIUM 9.3 MG/DL (8.5-10.1); CARBON DIOXIDE 22 MMOL/L (21-32); CHLORIDE 108 MMOL/L (98-107); CREATININE SERUM 1.18 MG/DL (0.60-1.30); GFR ESTIMATED > 60; GLUCOSE 100 MG/DL (70-105); POTASSIUM 4.3 MMOL/L (3.6-5.0); SODIUM 140 MMOL/L (135-145); TOTAL PROTEIN 6.7 GM/DL (6.4-8.2)
== END ==
LOC: LAB 10:08
PROVIDERS: ATTEND Internal Medicine Gastroenterology
DX: B18.2 Chronic viral hepatitis C (principal)
CPT/HCPCS: 36415; 80053; 82105; 85025; 87522

== ENCOUNTER → 2018-10-04 | Outpatient (CLI) | payer MEDICAID ==
[2018-10-04 10:46] LABS: BASOPHILS # (AUTO) 0.1 10^3/uL (0.0-0.1); BASOPHILS % (AUTO) 1 % (0-10); EOSINOPHILS # (AUTO) 0.4 10^3/uL (0.0-0.3); EOSINOPHILS % (AUTO) 4 % (0-10); HEMATOCRIT 48 % (40-54); HEMOGLOBIN 16.1 G/DL (13.3-17.7); LYMPHOCYTES # (AUTO) 1.6 X 10^3 (1.0-4.0); LYMPHOCYTES % (AUTO) 17 % (12-44); MEAN CORPUSCULAR HEMOGLOBIN 29 PG (25-34); MEAN CORPUSCULAR HGB CONC 34 G/DL (32-36); MEAN CORPUSCULAR VOLUME 84 FL (80-99); MEAN PLATELET VOLUME 10.4 FL (7.4-10.4); MONOCYTES # (AUTO) 1.2 X 10^3 (0.0-1.0); MONOCYTES % (AUTO) 12 % (0-12); NEUTROPHILS # (AUTO) 6.2 X 10^3 (1.8-7.8); NEUTROPHILS % (AUTO) 65 % (42-75); PLATELET COUNT 438 10^3/uL (130-400); RED BLOOD COUNT 5.64 10^6/uL (4.35-5.85); RED CELL DISTRIBUTION WIDTH 15.7 % (10.0-14.5); WHITE BLOOD COUNT 9.4 10^3/uL (4.3-11.0)
[2018-10-04 11:07] LABS: ALANINE AMINOTRANSFERASE 16 U/L (0-55); ALBUMIN 3.9 GM/DL (3.2-4.5); ALKALINE PHOSPHATASE 67 U/L (40-136); BILIRUBIN,TOTAL 0.3 MG/DL (0.1-1.0); BUN/CREATININE RATIO 16; CALCIUM 9.4 MG/DL (8.5-10.1); CARBON DIOXIDE 22 MMOL/L (21-32); CHLORIDE 107 MMOL/L (98-107); CREATININE SERUM 1.19 MG/DL (0.60-1.30); GFR ESTIMATED > 60; GLUCOSE 98 MG/DL (70-105); POTASSIUM 4.3 MMOL/L (3.6-5.0); SODIUM 139 MMOL/L (135-145); TOTAL PROTEIN 6.7 GM/DL (6.4-8.2)
[2018-10-04 11:33] LABS: FREE T4 (FREE THYROXINE) 1.12 NG/DL (0.70-1.48)
== END ==
LOC: LAB 10:11
PROVIDERS: ATTEND Nurse Practitioner Family
DX: I10 Essential (primary) hypertension (principal); I48.0 Paroxysmal atrial fibrillation; E03.8 Other specified hypothyroidism
CPT/HCPCS: 80053; 84439; 84443

== ENCOUNTER 2018-10-12 19:36 | Inpatient (IN) | payer MEDICAID | END 2018-10-13 15:26 | disposition home or self-care (01) | LOC: ICU 19:36 | PROC: 4A023N7 Measurement of Cardiac Sampling and Pressure, Left Heart, Percutaneous Approach (ICD-10-PCS; principal; 2018-10-13) | PROC: B2111ZZ Fluoroscopy of Multiple Coronary Arteries using Low Osmolar Contrast (ICD-10-PCS; 2018-10-13) | PROC: B2151ZZ Fluoroscopy of Left Heart using Low Osmolar Contrast (ICD-10-PCS; 2018-10-13) | PROC: B3101ZZ Fluoroscopy of Thoracic Aorta using Low Osmolar Contrast (ICD-10-PCS; 2018-10-13) | DX: I21.A1 Myocardial infarction type 2 (principal); I48.0 Paroxysmal atrial fibrillation; I25.10 Atherosclerotic heart disease of native coronary artery without angina pectoris; F11.20 Opioid dependence, uncomplicated; F13.20 Sedative, hypnotic or anxiolytic dependence, uncomplicated; G43.909 Migraine, unspecified, not intractable, without status migrainosus; K21.9 Gastro-esophageal reflux disease without esophagitis; K75.9 Inflammatory liver disease, unspecified; E03.9 Hypothyroidism, unspecified; M54.9 Dorsalgia, unspecified; F41.9 Anxiety disorder, unspecified; M19.91 Primary osteoarthritis, unspecified site; K57.90 Diverticulosis of intestine, part unspecified, without perforation or abscess without bleeding; K64.9 Unspecified hemorrhoids; K59.09 Other constipation; Z87.891 Personal history of nicotine dependence; Z86.711 Personal history of pulmonary embolism; Z86.718 Personal history of other venous thrombosis and embolism; Z90.81 Acquired absence of spleen; Z85.038 Personal history of other malignant neoplasm of large intestine; Z98.1 Arthrodesis status ==

== ENCOUNTER 2018-11-24 04:31 | Emergency (ER) | payer MEDICARE, MEDICAID ==
[~2018-11-24] VITALS: Ht 182.9 cm; Wt 95.3 kg
[~2018-11-24 04:31] MED LIST changes: +DILT120C53 PO; +DRON400T2 PO; +LEVO25TA5 PO; +METR-145 PO; -METR-197 PO; +OXYC-529 PO
--- OUTSIDE RECORDS SUMMARY | 2018-11-24 04:40 | XMS REPORT ---
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 Active 30988964 Problem Chronic pain syndrome G89.4 Active 39186973 Problem Portal vein thrombosis I81 Active 95017632 Problem Chronic hepatitis C without hepatic coma B18.2 Active 822240722 Problem Elevated platelet count D47.3 Active 156155345 Problem Other chronic pain G89.29 Active 40184643 Problem Major depressive disorder, recurrent, moderate F33.1 Active 89396384 Problem Urinary hesitancy R39.11 Active 2580799 Problem Gastroesophageal reflux disease, esophagitis presence not specified K21.9 Active 780126297 ALLERGIES Substance Reaction Event Type Date Status Tramadol 50 Mg Tablet Failed UDS- neg for prescribed meds Non Drug Allergy Aug, Active Benzodiazepines Failed UDS- neg for prescribed meds Non Drug Allergy Aug Active Hydrocodone Failed UDS- neg for prescribed meds Non Drug Allergy Aug, Active Amphetamine Failed UDS- neg for prescribed meds Non Drug Allergy Aug, Active ENCOUNTERS Encounter Location Date Diagnosis [facility] [place] [address] [facility] [id number] [address] Sep, Chronic pain syndrome G89.4 [facility] [place] [address] [facility] [id number], [place] [address] Sep, [facility] [place] [address], [place] [address] Sep, [facility] [place] [id number] [place] [address] 61379- 7826 Sep, [facility] [place] [id number] [place] [address] 42378- 9755 Sep, [facility] [place] [id number] [place] [address] 86018- 8791 Sep, [facility] [place] [id number] [place] [address] 04164- 9874 Sep, [facility] [place] [id number] [place] [address] 43363- 5138 Aug, [facility] [place] [id number] [place] [address] 75068- 9107 Aug, Portal vein thrombosis I81 ; Chronic pain syndrome G89.4 ; Other acute pulmonary embolism without acute cor pulmonale I26.99 and Chronic hepatitis C without hepatic coma B18.2 [facility] [place] [id number] [place] [address] 23343- 5616 Aug, [facility] [place] [id number] [place] [address] 01955- 8495 Aug, [facility] [place] [id number] [place] [address] 55826- 5606 Jul, Major depressive disorder, recurrent, moderate F33.1 and Posttraumatic stress disorder F43.10 [facility] [place] [id number] [place] [address] 83526- 3862 Jul, Gastroesophageal reflux disease, esophagitis presence not specified K21.9 [facility] [place] [id number] [place] [address] 77226- 1929 Jun, [facility] [place] [id number] [place] [address] 95745- 1187 Jun, [facility] [place] [id number] [place] [address] 00882- 9985 Jun, Posttraumatic stress disorder F43.10 and 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 [facility] [place] [address] [address] 5125 Apr, [facility] [place] [id number] [place] [address] 36495- 5509 Apr, Mass of sinus R22.0 ; 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 and Elevated platelet count D47.3 [facility] [place] [id number] [place] [address] 63027- 7149 Apr, 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 and Posttraumatic stress disorder F43.10 [place] [address] [address] 53[address] January, [place] [id number] [place] [address] 31383- 0894 January, Posttraumatic stress disorder F43.10 and 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 [place] [id number] [place] [address] 55114- 9077 Dec, 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 and Elevated platelet count D47.3 [facility] [place] [address] [address] 5464 Dec, [facility] [place] [address] [address] 2227 Dec, Low energy R53.83 ; 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 ; Gastroesophageal reflux disease, esophagitis presence not specified K21.9 and Urinary hesitancy R39.11 [place] [address] [address] 3504 Dec, Posttraumatic stress disorder F43.10 and 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 [place] [id number] [place] [address] 21222- 9892 Oct, [facility] [place] [id number] [place] [address] 70153- 8984 Sep, Mass of sinus R22.0 [facility] [place] [id number] [place] [address] 72384- 4447 Sep, Dysuria R30.0 ; Low back pain M54.5 ; Other chronic pain G89.29 ; Poor nutrition E63.9 ; Gastroesophageal reflux disease, esophagitis presence not specified K21.9 and Mass of sinus R22.0 [facility] [place] [id number] [place] [address] 91701- 8026 Sep, Posttraumatic stress disorder F43.10 and 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 [facility] [id number] [place] [address] 40298- 9582 Sep, [facility] [place] [id number] [place] [address] 64689- 1859 Aug, [facility] [place] [id number] [place] [address] 31804- 3233 Aug, Encounter for immunization Z23 [facility] [place] [id number] [place] [address] 64386- 5053 Jul, Posttraumatic stress disorder F43.10 ; 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 and Major depressive disorder, recurrent, moderate F33.1 [facility] [id number] [place] [address] 56539- 0471 Jun, [facility] [place] [id number] [place] [address] 98566- 9878 Jun, [facility] [place] [id number] [place] [address] 00100- 0802 May, [facility] [place] [id number] [place] [address] 78157- 4823 Apr, [facility] [id number] [place] [address] 51097- 7195 Apr, Posttraumatic stress disorder F43.10 and 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 [facility] [place] [address] [address] 2819 Mar, [facility] [place] [id number] [address]- 7825 Feb, [facility] [place] [address] [address]- 8091 January, [facility] [place] [address] [address]- 0841 January, Posttraumatic stress disorder F43.10 and 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 [facility] [place] [address] [address]- 6777 Dec, [facility] [place] [address], [place] [address]- 6503 Nov, [facility] [place] [address] [address]- 2754 Nov, [facility] [place] [address] [address]- 2876 Oct, Posttraumatic stress disorder F43.10 and 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 [facility] [place] [address] [address]- 2802 Sep, Encounter for immunization Z23 ; Posttraumatic stress disorder F43.10 and 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 [facility] [place] [id number] [address]- 2572 Aug, [facility] [place] [id number] [address]- 1886 Aug, [facility] [address] 5682 Jul, Encounter for immunization Z23 ; Posttraumatic stress disorder F43.10 and 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 [facility] [place] [id number] [address]- 1339 Jun, [facility] [id number] [place] [address] 313649- 0723 Jun, Mass of sinus R22.0 ; Low back pain M54.5 and Paroxysmal atrial fibrillation I48.0 [facility] [id number] [place] [address] 40224- 1393 May, [facility] [place] [id number] [place] [address] 03546- 0045 Apr, Posttraumatic stress disorder 309.81 and Major depressive disorder, recurrent episode, moderate 296.32 [facility] [id number] [place] [address] 04711- 4716 Apr, [facility] [place] [id number] [place] [address] 79419- 0775 Mar, Major depressive disorder, recurrent episode, moderate 296.32 and Posttraumatic stress disorder 309.81 [facility] [address], [place] [address]- 4038 Feb, [facility] [id number] [place] [address] 15456- 1467 Feb, [facility] [address] [address]- 5586 January, [facility] [address] [address]- 5234 January, [facility] [address] [address]- 3276 January, [facility] [id number] [place] [address] 23055- 0601 Dec, [facility] [address] [address]- 0973 Dec, [facility] [address] [address]- 1326 Nov, [facility] [place] [facility] [address] [id number] [place] [address]- 6078 Nov, 2014 [facility] [place] [facility] [address] [id number] [place] [address]- 7094 Nov, 2014 [facility] [place] [facility] [address] [id number] [place] [address]- 4590 Nov, 2014 [facility] [place] [facility] [address] [id number] [place] [address]- 5615 Nov, 2014 [facility] [place] [facility] [address] [id number] [place] [address]- 3125 Nov, 2014 [facility] [place] [facility] [address] [id number] [place] [address]- 2373 Nov, 2014 [facility] [place] [facility] [address] [id number] [place] [address]- 7034 Nov, 2014 [facility] [place] [facility] [address] [id number] [place] [address]- 6532 Oct, 2014 [facility] [place] [facility] [address] [id number] [place] [address]- 4564 Oct, 2014 [facility] [place] [facility] [address] [id number] [place] [address]- 5405 Oct, 2014 [facility] [place] [facility] [address] [id number] [place] [address]- 4374 Oct, 2014 [facility] [place] [facility] [address] [id number] [place] [address]- 8206 Oct, 2014 [facility] [place] [facility] [address] [id number] [place] [address]- 1986 Oct, 2014 [facility] [place] [facility] [address] [id number] [place] [address]- 8052 Oct, 2014 [facility] [place] [facility] [address] [facility] [id number] [place] [address]- 2166 Oct, 2014 [facility] [place] [facility] [address] [id number] [place] [address]- 7279 Oct, 2014 [facility] [place] [facility] [address] [id number] [place] [address]- 2696 Oct, 2014 [facility] [place] [facility] [address] [id number] [place] [address]- 4366 Oct, 2014 [facility] [place] [facility] [address] [id number] [place] [address]- 7756 Oct, 2014 [facility] [place] [facility] [address] [id number] [place] [address]- 8536 Oct, 2014 [facility] [place] [facility] [address] [id number] [place] [address]- 3048 Oct, 2014 [facility] [place] [facility] [address] [facility] [id number] [place] [address]- 4159 Oct, 2014 [facility] [place] [facility] [address] [facility] [id number] [place] [address]- 2716 Oct, 2014 [facility] [place] [facility] [address] [facility] [id number] [place] [address]- 5254 Sep, [facility] [place] [facility] [address] [facility] [id number] [place] [address]- 3667 Sep, [facility] [place] [facility] [address] [facility] [id number] [place] [address]- 6336 Sep, [facility] [place] [facility] [address] [facility] [id number] [place] [address]- 9946 Sep, [facility] [place] [facility] [address] [id number] [place] [address]- 1825 Aug, [facility] [place] [facility] [address] [id number] [place] [address]- 8816 Aug, [facility] [place] [facility] [address] [facility] [id number] [place] [address]- 3703 Aug, [facility] [place] [facility] [address] [facility] [id number] [place] [address]- 4730 Aug, [facility] [place] [facility] [address] [id number] [place] 1284 Aug, [facility] [place] [facility] [address] [id number] [place] [address]- 1092 Aug, [facility] [place] [facility] [address] [facility] [id number] [place] [address]- 9812 Aug, [facility] [place] [facility] [address] [id number] [place] 5884 Aug, [facility] [place] [facility] [address] [id number] [place] [address]- 9268 Aug, [facility] [place] [facility] [address] [id number] [place] [address]- 2071 Aug, [facility] [place] [facility] [address] [id number] [place] [address]- 1232 Aug, [facility] [place] [facility] [address] [id number] [place] [address]- 4726 Aug, [facility] [place] [facility] [address] [id number] [place] [address]- 8957 Aug, [facility] [place] [facility] [address] [id number] [place] [address]- 7007 Aug, [facility] [place] [facility] [address] [id number] [place] [address]- 4462 Aug, [facility] [place] [facility] [address] [id number] [place] [address]- 9268 Aug, [facility] [place] [facility] [address] [id number] [place] [address]- 5256 Jul, [facility] [place] [facility] [address] [id number] [place] [address]- 8215 Jul, [facility] [place] [facility] [address] [facility] [id number] [place] [address]- 7130 Jul, [facility] [place] [facility] [address] [id number] [place] [address]- 6898 Jul, [facility] [place] [facility] [address] [id number] [place] [address]- 0081 Jul, [facility] [place] [facility] [address] [id number] [place] [address]- 2483 Jul, [facility] [place] [facility] [address] [id number] [place] [address]- 3077 Jun, [facility] [place] [facility] [address] [id number] [place] [address]- 2136 Jun, [facility] [place] [facility] [address] [id number] [place] [address]- 2255 Jun, [facility] [place] [facility] [address] [id number] [place] [address]- 1423 Jun, [facility] [place] [facility] [address] [id number] [place] [address]- 2333 Jun, [facility] [place] [facility] [address] [id number] [place] [address]- 4223 Jun, [facility] [place] [facility] [address] [id number] [place] [address]- 0078 Jun, [facility] [place] [facility] [address] [facility] [id number] [place] [address]- 9806 Jun, [facility] [place] [facility] [address] [id number] [place] [address]- 9313 Jun, [facility] [place] [facility] [address] [id number] [address]- 9330 Jun, [facility] [place] [facility] [address] [id number] [place] [address]- 4824 Jun, [facility] [place] [facility] [address] [id number] [place] [address]- 9848 Jun, [facility] [place] [facility] [address] [id number] [place] [address]- 4228 Jun, [facility] [place] [facility] [address] [id number] [place] [address]- 3975 Jun, [facility] [place] [facility] [address] [id number] [place] [address]- 2543 May, [facility] [place] [facility] [address] [id number] [place] 3236 May, [facility] [place] [facility] [address] [id number] [place] [address]- 0136 May, [facility] [place] [facility] [address] [id number] [place] [address]- 5455 May, [facility] [place] [facility] [address] [id number] [place] [address]- 9606 Apr, [facility] [place] [facility] [address] [id number] [place] [address]- 4732 Apr, [facility] [place] [facility] [address] [id number] [place] [address]- 6992 Apr, [facility] [place] [facility] [address] [id number] [place] [address]- 5932 Apr, [facility] [place] [facility] [address] [id number] [place] [address]- 8535 Mar, [facility] [place] [facility] [address] [id number] [place] [address]- 2699 Mar, [facility] [place] [facility] [address] [id number] [place] [address]- 7218 Mar, [facility] [place] [facility] [address] [id number] [place] [address]- 2223 Mar, [facility] [place] [facility] [address] [id number] [place] [address]- 4371 Mar, [facility] [place] [facility] [address] [id number] [place] [address]- 8461 Mar, [facility] [place] [facility] [address] [id number] [place] [address]- 5497 Mar, [facility] [place] [facility] [address] [id number] [place] [address]- 6440 Mar, [facility] [place] [facility] [address] [id number] [place] [address]- 7728 Mar, [facility] [place] [facility] [address] [id number] [place] [address] Mar, [facility] [place] [facility] [address] [id number] [place] [address] Mar, [facility] [place] [facility] [address] [id number] [place] [address] Mar, [facility] [place] [facility] [address] [id number] [place] [address] Feb, [facility] [place] [facility] [address] [id number] [place] [address] Feb, [facility] [place] [facility] [address] [id number] [place] [address] Feb, [facility] [place] [facility] [address] [id number] [place] [address] Feb, [facility] [place] [facility] [address] [id number] [place] [address]- [address] Feb, [facility] [place] [facility] [address] [id number] [place] [address]- [address] Feb, [facility] [place] [facility] [address] [id number] [place] [address]- [address] January, [facility] [place] [facility] [address] [id number] [place] [address] January, [facility] [place] [facility] [address] [id number] [place] [address]- [address] January, [facility] [place] [facility] [address] [id number] [place] [address]- [address] January, [facility] [place] [facility] [address] [id number] [place] [address]- [address] January, [facility] [address] [id number] [place] [address] January, [facility] [place] [facility] [address] [id number] [place] [address]- [address] Nov, [facility] [place] [facility] [address] [id number] [place] [address]- [address] Nov, [facility] [place] [facility] [address] [id number] [place] [address]- [address] Nov, [facility] [place] [facility] [address] [id number] [place] [address]- [address] Nov, [facility] [place] [facility] [address] [id number] [place] [address] Oct, [facility] [place] [facility] [address] [id number] [place] [address] Oct, [facility] [place] [facility] [address] [id number] [place] [address]- [address] Sep, [facility] [place] [facility] [address] [id number] [place] [address]- [address] Sep, [facility] [place] [facility] [address] [id number] [place] [address] Sep, [facility] [place] [facility] [address] [id number] [place] [address]- [address] Sep, [facility] [place] [facility] [address] [id number] [place] [address]- [address] Sep, [facility] [place] [facility] [address] [id number] [place] [address]- [address] Aug, [facility] [place] [facility] [address] [id number] [place] [address]- [address] Aug, [facility] [place] [facility] [address] [id number] [place] [address]- [address] Jul, [facility] [place] [facility] [address] [id number] [place] [address] Jul, [facility] [place] [facility] [address] [id number] [place] [address] Jul, [facility] [place] [facility] [address] [id number] [place] [address] Jun, [facility] [place] [facility] [address] [id number] [place] [address] Jun, [facility] [place] [facility] [address] [id number] [place] [address] Jun, [facility] [place] [facility] [address] [id number] [place] [address] Jun, [facility] [place] [facility] [address] [id number] [place] [address] Apr, [facility] [place] [facility] [address] [id number] [place] [address]- [address] Mar, [facility] [place] [facility] [address] [id number] [place] [address]- [address] Mar, [facility] [place] [facility] [address] [id number] [place] [address] January, [facility] [place] [facility] [address] [id number] [place] [address]- [address] Dec, [facility] [place] [facility] [address] [id number], [place] [address] Dec, [facility] [place] [facility] [address] [id number] [place] [address] Nov, [facility] [place] [facility] [address] [id number] [place] [address]- [address] Nov, [facility] [place] [facility] [address] [id number] [place] [address] Nov, [facility] [place] [facility] [address] [id number] [place] [address] 2012 [facility] [place] [facility] [address] [id number] [place] [address] 07 Nov, 2012 [facility] [place] [facility] [address] [id number] [place] [address] 05 Nov, 2012 [facility] [place] [facility] [address] [id number] [place] [address] 20 Oct, 2012 [facility] [place] [facility] [address] [id number] [place] [address] 15 Sep, 2012 [facility] [place] [facility] [address] [id number] [place] [address] 18 Aug, 2012 [facility] [place] [facility] [address] [id number] [place] [address] 18 Aug, 2012 [facility] [place] [facility] [address] [id number] [place] [address] 18 Aug, 2012 [facility] [place] [facility] [address] [id number] [place] [address] Aug, [facility] [place] [facility] [address] [id number] [place] [address] 15 Jul, 2012 [facility] [place] [facility] [address] [facility] [id number] [place] [address] 15 Jul, 2012 [facility] [place] [facility] [address] [id number] [place] [address] Jun, [facility] [place] [facility] [address] [id number] [place] [address] Jun, [facility] [place] [facility] [address] [id number] [place] [address] 18 Jun, 2012 [facility] [place] [facility] [address] [id number] [place] [address] 18 Jun, 2012 [facility] [place] [facility] [address] [facility] [id number] [place] [address] May, [facility] [place] [facility] [address] [id number] [place] [address] 18 May, 2012 [facility] [place] [facility] [address] [id number] [place] [address] 14 May, 2012 [facility] [place] [facility] [address] [id number] [place] [address] 10 May, 2012 [facility] [place] [facility] [address] [id number] [place] [address] 04 May, 2012 [facility] [place] [facility] [address] [id number] [place] [address] 30 Apr, 2012 [facility] [place] [facility] [address] [id number] [place] [address] Apr, [facility] [place] [facility] [address] [id number] [place] [address] Mar, [facility] [place] [facility] [address] [id number] [place] [address] Mar, [facility] [place] [facility] [address] [id number] [place] [address] Mar, [facility] [place] [facility] [address] [id number] [place] [address] Feb, [facility] [place] [facility] [address] [id number] [place] [address] January, [facility] [place] [facility] [address] [id number] [place] [address] 28 Nov, 2011 [facility] [place] [facility] [address] [id number] [place] [address] 13 Nov, 2011 [facility] [place] [facility] [address] [id number] [place] [address] 7766 12 Nov, 2011 [facility] [place] [facility] [address] [id number] [place] [address] 2011 [facility] [place] [facility] [address] [id number] [place] [address] Nov, [facility] [address] [id number] [place] [address] Oct, [facility] [address] [id number] [place] [address] Oct, [facility] [address] [id number] [place] [address] Oct, [facility] [address] [id number] [place] [address] Oct, [facility] [address] [id number] [place] [address] Oct, [facility] [address] [id number] [place] [address] Sep, [facility] [address] [id number] [place] [address] Sep, [facility] [address] [id number] [place] [address] Sep, [facility] [address] [id number] [place] [address] Sep, [facility] [address] [id number] [place] [address] Sep, [facility] [address] [id number] [place] [address] Sep, [facility] [address] [id number] [place] [address] Sep, [facility] [address] [id number] [place] [address] Aug, [facility] [place] [facility] [address] [id number] [place] [address] 50[address] Aug, [facility] [address] [id number] [place] [address]- [address] 16 Aug, 2011 [facility] [place] [facility] [address] [id number] [place] [address] 2546 09 Aug, 2011 [facility] [place] [facility] [address] [id number] [place] [address] 8[address] Aug, [facility] [place] [facility] [address] [id number] [place] [address] 2546 Aug, [facility] [place] [facility] [address] [id number] [place] [address] 3826 Jun, [facility] [place] [facility] [address] [id number] [place] [address] 7546 Jun, [facility] [place] [facility] [address] [id number] [place] [address] 3699 Jun, [facility] [place] [facility] [address] [id number] [place] [address] 9145 Jun, [facility] [place] [facility] [address] [id number] [place] [address] Apr, [facility] [place] [facility] [address] [id number] [place] [address] 89[address] Mar, [facility] [place] [facility] [address] [id number] [place] [address] 1402 Feb, [facility] [place] [facility] [address] [id number] [place] [address] 6273 Sep, [facility] [place] [facility] [address] [id number] [place] [address] 7558 Aug, [facility] [place] [facility] [address] [id number] [place] [address] 2549 Aug, [facility] [place] [facility] [address] [id number] [place] [address] 9116 Jul, [facility] [place] [facility] [address] [id number] [place] [address] 2546 Jul, [facility] [place] [facility] [address] [id number] [place] [address] Jul, [facility] [address] [id number] [address] Jun, [facility] [id number] [address] Apr, [facility] [id number] [place] [address] Oct, [facility] [id number] [place] [address]- [address]66 Aug, [facility] [id number] [place] [address]- 39[address] Jun, [facility] [id number] [place] [address]- [address] Feb, [facility] [id number] [place] [address]- 2576 Aug, [facility] [id number] [place] [address]- 7437 Jun, [facility] [id number] [address] Jun, IMMUNIZATIONS No Known Immunizations SOCIAL HISTORY Never Assessed REASON FOR VISIT VC Follow up --[facility], States he was dx with Hep C recently doesn't remember where PLAN OF CARE Activity Details Follow Up 4 Weeks with PCP rhiannon SUAREZ Reason: VITAL SIGNS Height 72 in 2017-09-02 Weight 230 lbs 2017-09-02 Temperature 97.1 degrees Fahrenheit 2017-09-02 Heart Rate 76 bpm 2017-09-02 Respiratory Rate 20 2017-09-02 BMI 31.19 kg/m2 2017-09-02 Blood pressure systolic 128 mmHg 2017-09-02 Blood pressure diastolic 82 mmHg 2017-09-02 MEDICATIONS Medication Instructions Dosage Frequency Start Date End Date Duration Status Aspir-81 81 MG Orally Once a day 1 tablet 24h Not-Taking Tamsulosin HCl 0.4 MG TAKE ONE CAPSULE BY MOUTH DAILY FOR PROSTATE 30 Not-Taking Cyclobenzaprine HCl 10 MG Orally Three times a day 1 tablet as needed 8h Active Cymbalta 60 MG Orally in the morning 2 capsule Not-Taking Xanax 1 mg TAKE ONE TABLET BY MOUTH THREE TIMES DAILY 30 Active Hydrocodone-Acetaminophen 5-325 MG Orally 3 times a day 1 tablet as needed 8h 14 Aug, 2017 14 days Active Pantoprazole Sodium 40 mg Orally Once a day 1 tablet 24h 90 days Active Hydrocodone-Acetaminophen 10-325 MG/15ML Orally every 6 hrs 5 ml as needed 6h Not-Taking Atorvastatin Calcium 20 mg Orally Once a day 1 tablet 24h 30 Not- Taking Ibuprofen 800 MG Orally Three times a day as needed 1 tablet Not -Taking Duloxetine HCl 60 MG TAKE TWO CAPSULES BY MOUTH ONCE DAILY IN THE MORNING 30 Active Eliquis 5 mg Orally 2 times a day 2 tablets 12h Active Abilify 5 MG Orally Once a day 1 tablet 24h Sep, Active Prazosin HCl 1 MG TAKE ONE CAPSULE BY MOUTH ONCE DAILY AT BEDTIME FOR NIGHTMARES 30 Active RESULTS No Results PROCEDURES No Known procedures INSTRUCTIONS MEDICATIONS ADMINISTERED No Known Medications MEDICAL (GENERAL) HISTORY Type Description Date Medical [...] Atrial Flutter 2014 Hospitalization History Stomach issues Hospitalization History Pulmonary Embolism 08/2017
--- OUTSIDE RECORDS SUMMARY | 2018-11-24 04:41 | XMS REPORT ---
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 [address]-94 30 MG Orally Twice a day Apr 20, 2016 1 capsule Aspir-81 [facility] [address]-90 81 MG Orally Once a day 1 tablet Diazepam [facility] [address]-81 10 mg TAKE ONE TABLET BY MOUTH FOUR TIMES DAILY NEEDED FOR ANXIETY Amitriptyline HCl [facility] [address]-98 10 MG Orally Once a day Nov 06, 2015 1 tablet Cymbalta [facility] [address]-73 60 MG Orally Once a day Oct 02, 2015 1 capsule Procedures Procedure Coding System Code Date Office Visit, Est Pt., Level 3 CPT-4 67987 Apr 20, 2016 Vital Signs Date/Time: Apr 20, 2016 Cardiac Monitoring Heart Rate 100 bpm Weight 212.9 lbs Height 72 in BMI 28.87 Index Blood Pressure Diastolic 80 mmHg Blood Pressure Systolic 120 mmHg Results No Known Results Summary Purpose [employer] Submission
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
--- OUTSIDE RECORDS SUMMARY | 2018-11-24 04:41 | XMS REPORT ---
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
--- OUTSIDE RECORDS SUMMARY | 2018-11-24 04:41 | XMS REPORT ---
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
--- OUTSIDE RECORDS SUMMARY | 2018-11-24 04:42 | XMS REPORT ---
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 Active 23138141 Problem Chronic pain syndrome G89.4 Active 14752730 Problem Portal vein thrombosis I81 Active 04117947 Problem Chronic hepatitis C without hepatic coma B18.2 Active 624582202 Problem Elevated platelet count D47.3 Active 822202063 Problem Other chronic pain G89.29 Active 01823648 Problem Major depressive disorder, recurrent, moderate F33.1 Active 41126043 Problem Urinary hesitancy R39.11 Active 8805149 Problem Gastroesophageal reflux disease, esophagitis presence not specified K21.9 Active [id number] ALLERGIES No Information ENCOUNTERS Encounter Location Date Diagnosis [facility] [id number] [place] [address] 70729- 2324 Sep, Chronic pain syndrome G89.4 [facility] [address] [address] 0[address] Sep, [facility] [id number] [place] [address] 50893- 0177 Sep, [facility] [id number] [place] [address] 36084- 0753 Sep, [facility] [id number] [place] [address] 30603- 8724 Sep, [facility] [id number] [place] [address] 22920- 8847 Sep, [facility] [id number] [place] [address] 41479- 3629 Sep, [facility] [id number] [place] [address] 99954- 4479 Aug, [facility] [id number] [place] [address] 59543- 3014 Aug, Portal vein thrombosis I81 ; Chronic pain syndrome G89.4 ; Other acute pulmonary embolism without acute cor pulmonale I26.99 and Chronic hepatitis C without hepatic coma B18.2 [facility] [id number] [place] [address] 95861- 2626 Aug, [facility] [id number] [place] [address] 68021- 8580 Aug, [facility] [id number] [place] [address] 80633- 5811 Jul, Major depressive disorder, recurrent, moderate F33.1 and Posttraumatic stress disorder F43.10 [facility] [id number] [place] [address] 88221- 6914 Jul, Gastroesophageal reflux disease, esophagitis presence not specified K21.9 [facility] [id number] [place] [address] 21713- 9688 Jun, [facility] [id number] [place] [address] 58064- 5532 Jun, [facility] [id number] [place] [address] 72007- 3831 Jun, Posttraumatic stress disorder F43.10 and 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 [facility] [id number] [place] [address] 77809- 9945 Apr, [facility] [id number] [place] [address] 17359- 4864 Apr, Mass of sinus R22.0 ; 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 and Elevated platelet count D47.3 [facility] [id number] [place] [address] 60842- 1831 Apr, 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 and Posttraumatic stress disorder F43.10 [facility] [id number] [place] [address] 75203- 3057 January, [facility] [id number] [place] [address] 95029- 7147 January, Posttraumatic stress disorder F43.10 and 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 [facility] [id number] [place] [address] 97799- 0178 Dec, 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 and Elevated platelet count D47.3 [facility] [id number] [place] [address] 25975- 2084 Dec, [facility] [id number] [place] [address] 87098- 8876 Dec, Low energy R53.83 ; 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 ; Gastroesophageal reflux disease, esophagitis presence not specified K21.9 and Urinary hesitancy R39.11 [facility] [id number] [place] [address] 47703- 3942 Dec, Posttraumatic stress disorder F43.10 and 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 [facility] [id number] [place] [address] 30131- 7769 Oct, [facility] [id number] [place] [address] 98064- 6334 Sep, Mass of sinus R22.0 [facility] [id number] [place] [address] 04596- 9619 Sep, Dysuria R30.0 ; Low back pain M54.5 ; Other chronic pain G89.29 ; Poor nutrition E63.9 ; Gastroesophageal reflux disease, esophagitis presence not specified K21.9 and Mass of sinus R22.0 [facility] [id number] [place] [address] 77219- 0818 Sep, Posttraumatic stress disorder F43.10 and 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 [facility] [address] 07096- 4610 Sep, [facility] [address] 01226- 3429 Aug, [facility] [address] 85564- 5329 Aug, Encounter for immunization Z23 [facility] [address] 90045- 2931 Jul, Posttraumatic stress disorder F43.10 ; 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 and Major depressive disorder, recurrent, moderate F33.1 [facility] [id number] [place] [address] 41101- 2532 Jun, [facility] [id number] [place] [address] 96011- 3459 Jun, [facility] [id number] [place] [address] 21007- 6222 May, [facility] [id number] [place] [address] 33000- 0485 Apr, [facility] [id number] [place] [address] 67579- 1632 Apr, Posttraumatic stress disorder F43.10 and 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 [facility] [id number] [place] [address] 56015- 5425 Mar, [facility] [address] 88478- 2511 Feb, [facility] [address] [address]- 1085 January, [facility] [id number] [place] [address] 74678- 9459 January, Posttraumatic stress disorder F43.10 and 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 [facility] [id number] [place] [address] 22760- 0094 Dec, [facility] [id number] [place] [address] 13629- 3492 Nov, [facility] [id number] [place] [address] 88980- 9015 Nov, [facility] [id number] [place] [address] 41585- 2303 Oct, Posttraumatic stress disorder F43.10 and 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 [facility] [id number] [place] [address] 40740- 9178 Sep, Encounter for immunization Z23 ; Posttraumatic stress disorder F43.10 and 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 [facility] [id number] [place] [address] 36363- 4181 Aug, [facility] [address] [address]- 9745 Aug, [facility] [id number] [place] [address] 82179- 0848 Jul, Encounter for immunization Z23 ; Posttraumatic stress disorder F43.10 and 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 [facility] [id number] [place] [address] 23214- 5843 Jun, [facility] [id number] [place] [address] 15631- 1391 Jun, Mass of sinus R22.0 ; Low back pain M54.5 and Paroxysmal atrial fibrillation I48.0 [facility] [address] [facility] [id number] [address]- 0118 May, [facility] [id number] [place] [address] 531131- 0824 Apr, Posttraumatic stress disorder 309.81 and Major depressive disorder, recurrent episode, moderate 296.32 [facility] [id number] [place] [address] 77342- 7646 Apr, [facility] [address] [facility] [id number] 6611 Mar, Major depressive disorder, recurrent episode, moderate 296.32 and Posttraumatic stress disorder 309.81 [facility] [id number] [place] [address] 149585- 6687 Feb, [facility] [address] [address]- 6972 Feb, [facility] [id number] [address]- 6587 January, [facility] [address] [address]- 6061 January, [facility] [address] 0993 January, [facility] [address] [address]- 7585 Dec, [facility] [address] [address]- 4728 Dec, [facility] [address] 4895 Nov, [facility] [address] 4812 Nov, [facility] [address] [address]- 5577 Nov, [facility] [id number] [place] [address] [place] [address]- 9844 06 Nov, 2014 [facility] [place] [facility] [address] [id number] [place] [address]- 9950 Nov, 2014 [facility] [place] [facility] [address] [id number] [place] [address]- 4488 Nov, 2014 [facility] [place] [facility] [address] [id number] [place] [address]- 6535 Nov, 2014 [facility] [place] [facility] [address] [id number] [place] [address]- 4532 Nov, 2014 [facility] [place] [facility] [address] [id number] [place] [address]- 1413 Oct, 2014 [facility] [place] [facility] [address] [id number] [place] [address]- 7306 Oct, 2014 [facility] [place] [facility] [address] [id number] [place] [address]- 8652 16 Oct, 2014 [facility] [place] [facility] [address] [id number] [place] [address]- 3370 16 Oct, 2014 [facility] [place] [facility] [address] [id number] [place] [address]- 8833 16 Oct, 2014 [facility] [place] [facility] [address] [id number] [place] [address]- 7992 16 Oct, 2014 [facility] [place] [facility] [address] [id number] [place] [address]- 9877 Oct, 2014 [facility] [place] [facility] [address] [id number] [place] [address]- 9336 Oct, 2014 [facility] [place] [facility] [address] [id number] [place] [address]- 5026 Oct, 2014 [facility] [place] [facility] [address] [id number] [place] [address]- 3391 06 Oct, 2014 [facility] [place] [facility] [address] [id number] [place] [address]- 8663 Oct, 2014 [facility] [place] [facility] [address] [id number] [place] [address]- 2958 Oct, 2014 [facility] [place] [facility] [address] [id number] [place] [address]- 4828 Oct, 2014 [facility] [place] [facility] [address] [id number] [place] [address]- 4606 Oct, 2014 [facility] [place] [facility] [address] [id number] [place] [address]- 4967 Oct, 2014 [facility] [place] [facility] [address] [id number] [place] [address]- 8072 Oct, 2014 [facility] [place] [facility] [address] [id number] [place] [address]- 4705 Sep, [facility] [place] [facility] [address] [facility] [id number] [place] [address]- 0811 Sep, [facility] [place] [facility] [address] [id number] [place] [address]- 5055 Sep, [facility] [place] [facility] [address] [id number] [place] [address]- 5742 Sep, [facility] [place] [facility] [address] [facility] [id number] [place] [address]- 4520 Aug, [facility] [place] [facility] [address] [id number] [place] [address]- 9820 Aug, [facility] [place] [facility] [address] [id number] [place] [address]- 8489 Aug, [facility] [place] [facility] [address] [id number] [place] [address]- 7739 Aug, [facility] [place] [facility] [address] [id number] [place] [address]- 7404 Aug, [facility] [place] [facility] [address] [facility] [id number] [place] [address]- 8590 Aug, [facility] [place] [facility] [address] [id number] [place] [address]- 0893 Aug, [facility] [place] [facility] [address] [id number] [place] 3758 Aug, [facility] [place] [facility] [address] [id number] [place] 3319 Aug, [facility] [place] [facility] [address] [id number] [place] 8302 Aug, [facility] [place] [facility] [address] [id number] [place] [address]- 7947 Aug, [facility] [place] [facility] [address] [id number] [place] 8303 Aug, [facility] [place] [facility] [address] [id number] [place] [address]- 1366 Aug, [facility] [place] [facility] [address] [id number] [place] [address]- 1168 Aug, [facility] [place] [facility] [address] [id number] [place] [address]- 2315 Aug, [facility] [place] [facility] [address] [id number] [place] [address]- 8780 Aug, [facility] [place] [facility] [address] [id number] [place] [address]- 5349 Jul, [facility] [place] [facility] [address] [id number] [place] [address]- 3246 Jul, [facility] [place] [facility] [address] [id number] [place] [address]- 6738 Jul, [facility] [place] [facility] [address] [id number] [place] [address]- 9202 Jul, [facility] [place] [facility] [address] [id number] [place] [address]- 7400 Jul, [facility] [place] [facility] [address] [id number] [place] [address]- 4051 Jul, [facility] [place] [facility] [address] [id number] [place] [address]- 4963 Jun, [facility] [place] [facility] [address] [id number] [place] [address]- 3149 Jun, [facility] [place] [facility] [address] [id number] [place] [address]- 4351 Jun, [facility] [place] [facility] [address] [id number] [place] [address]- 9565 Jun, [facility] [place] [facility] [address] [id number] [place] [address]- 2514 Jun, [facility] [place] [facility] [address] [id number] [place] [address]- 9404 Jun, [facility] [place] [facility] [address] [id number] [place] [address]- 3331 Jun, [facility] [place] [facility] [address] [id number] [place] [address]- 6095 Jun, [facility] [place] [facility] [address] [id number] [place] [address]- 5640 Jun, [facility] [place] [facility] [address] [id number] [place] [address]- 0292 Jun, [facility] [place] [facility] [address] [id number], [place] [address]- 9487 Jun, [facility] [place] [facility] [address] [id number], [place] [address]- 1294 Jun, [facility] [place] [facility] [address] [id number] [place] [address]- 6978 Jun, [facility] [place] [facility] [address] [id number] [place] [address]- 6099 Jun, [facility] [place] [facility] [address] [id number] [place]- 0138 16 May, 2014 [facility] [place] [facility] [address] [id number] [place] [address]- 1991 May, [facility] [place] [facility] [address] [id number] [place] [address]- 1677 May, [facility] [place] [facility] [address] [id number] [place] [address]- 9911 May, [facility] [place] [facility] [address] [id number] [place] [address]- 0050 Apr, [facility] [place] [facility] [address] [id number] [place] [address]- 2877 Apr, [facility] [place] [facility] [address] [id number] [place] [address]- 2426 Apr, [facility] [place] [facility] [address] [id number] [place] [address]- 0460 Apr, [facility] [place] [facility] [address] [id number] [place] [address]- 3100 Mar, [facility] [place] [facility] [address] [id number] [place] [address]- 7855 Mar, [facility] [place] [facility] [address] [id number] [place] [address]- 9547 Mar, [facility] [place] [facility] [address] [id number] [place] [address]- 7236 Mar, [facility] [place] [facility] [address] [id number] [place] [address]- 9360 Mar, [facility] [place] [facility] [address] [id number] [place] [address]- 9031 Mar, [facility] [place] [facility] [address] [id number] [place] [address]- 6349 Mar, [facility] [place] [facility] [address] [id number] [place] [address]- 4985 Mar, [facility] [place] [facility] [address] [id number] [place] [address]- 4754 Mar, [facility] [place] [facility] [address] [id number] [place] [address]- 7300 Mar, [facility] [place] [facility] [address] [id number] [place] [address]- 1073 Mar, [facility] [place] [facility] [address] [id number] [place] [address]- 7025 Mar, [facility] [place] [facility] [address] [id number] [place] [address]- 5496 Feb, [facility] [place] [facility] [address] [id number] [place] [address]- 3564 Feb, [facility] [place] [facility] [address] [id number] [place] [address]- 1698 Feb, [facility] [place] [facility] [address] [id number] [place] [address]- 3087 Feb, [facility] [place] [facility] [address] [id number] [place] [address]- 7679 Feb, [facility] [place] [facility] [address] [id number] [place] [address]- 4378 Feb, [facility] [place] [facility] [address] [id number] [place] [address]- 5650 January, [facility] [place] [facility] [address] [id number] [place] [address]- 6386 January, [facility] [place] [facility] [address] [id number] [place] [address]- 0901 January, [facility] [place] [facility] [address] [id number] [place] [address]- 4361 January, [facility] [place] [facility] [address] [id number] [place] [address]- 7891 January, [facility] [place] [facility] [address] [id number] [place] [address]- 6062 January, [facility] [place] [facility] [address] [id number] [place] [address]- 4918 Nov, [facility] [place] [facility] [address] [id number] [place] [address]- 7285 Nov, [facility] [place] [facility] [address] [id number] [place] [address]- 8681 Nov, [facility] [place] [facility] [address] [id number] [place] [address]- 2634 Nov, [facility] [place] [facility] [address] [id number] [place] [address]- 0892 Oct, [facility] [place] [facility] [address] [id number] [place] [address]- 6796 Oct, [facility] [place] [facility] [address] [id number] [place] [address]- 8387 Sep, [facility] [place] [facility] [address] [id number] [place] [address]- 2858 Sep, [facility] [place] [facility] [address] [id number] [place] [address]- 9523 Sep, [facility] [place] [facility] [address] [id number] [place] [address]- 3803 Sep, [facility] [place] [facility] [address] [id number] [place] [address]- 1408 Sep, [facility] [place] [facility] [address] [id number], [place] [address] Aug, [facility] [place] [facility] [address] [id number], [place] [address] Aug, [facility] [place] [facility] [address] [id number] [place] [address] Jul, [facility] [place] [facility] [address] [id number] [place] [address] Jul, [facility] [place] [facility] [address] [id number] [place] [address] Jul, [facility] [place] [facility] [address] [id number] [place] [address] Jun, [facility] [address] [id number] [place] [address] Jun, [facility] [address] [id number] [place] [address] Jun, [facility] [address] [id number] [place] [address] Jun, [facility] [address] [id number] [place] [address] Apr, [facility] [address] [id number] [place] [address] Mar, [facility] [address] [id number] [place] [address] [address] Mar, [facility] [address] [id number] [place] [address] January, [facility] [address] [id number] [place] [address] Dec, [facility] [address] [id number] [place] [address] Dec, [facility] [address] [id number] [place] [address] Nov, [facility] [address] [id number] [place] [address] Nov, [facility] [address] [id number] [place] [address] Nov, [facility] [address] [id number] [place] [address] 2012 [facility] [address] [id number] [place] [address] Nov, [facility] [address] [id number] [place] [address] Nov, [facility] [place] [facility] [address] [id number] [place] [address] Oct, [facility] [place] [facility] [address] [id number] [place] [address] Sep, [facility] [place] [facility] [address] [id number] [place] [address]- [address] Aug, [facility] [place] [facility] [address] [id number] [place] [address]- [address] Aug, [facility] [place] [facility] [address] [id number] [place] [address]- [address] Aug, [facility] [place] [facility] [address] [id number] [place] [address] Aug, [facility] [place] [facility] [address] [facility] [id number] [place] [address]- [address] Jul, [facility] [place] [facility] [address] [id number], [place] [address] Jul, [facility] [place] [facility] [address] [id number] [place] [address]- [address] Jun, [facility] [place] [facility] [address] [facility] [id number], [place] [address] Jun, [facility] [place] [facility] [address] [facility] [id number], [place] [address] Jun, [facility] [place] [facility] [address] [id number], [place] [address] 18 Jun, 2012 [facility] [place] [facility] [address] [id number], [place] [address] 21 May, 2012 [facility] [place] [facility] [address] [id number], [place] [address] 18 May, 2012 [facility] [place] [facility] [address] [facility] [id number], [place] [address] 14 May, 2012 [facility] [place] [facility] [address] [id number], [place] [address] 10 May, 2012 [facility] [address] [id number] [place] [address] May, [facility] [place] [facility] [address] [id number] [place] [address] Apr, [facility] [place] [facility] [address] [id number] [place] [address] Apr, [facility] [place] [facility] [address] [id number] [place] [address] Mar, [facility] [place] [facility] [address] [id number] [place] [address] Mar, [facility] [place] [facility] [address] [id number] [place] [address] Mar, [facility] [address] [id number] [address] Feb, [facility] [place] [facility] [address] [id number] [place] [address] January, [facility] [place] [facility] [address] [id number] [place] [address] Nov, [facility] [place] [facility] [address] [facility] [id number] [place] [address] Nov, [facility] [place] [facility] [address] [id number] [place] [address] Nov, [facility] [place] [facility] [address] [id number] [place] [address] Nov, [facility] [place] [facility] [address] [id number] [place] [address] Nov, [facility] [place] [facility] [address] [facility] [id number] [place] [address] Oct, [facility] [place] [facility] [address] [facility] [id number] [place] [address] Oct, [facility] [place] [facility] [address] [id number] [place] [address] Oct, [facility] [address] [id number] [place] [address] Oct, [facility] [address] [id number] [place] [address] Oct, [facility] [address] [id number] [place] [address] Sep, [facility] [address] [id number] [place] [address] Sep, [facility] [address] [id number] [place] [address] Sep, [facility] [address] [id number] [place] [address] Sep, [facility] [address] [id number] [place] [address] Sep, [facility] [address] [id number] [place] [address] Sep, [facility] [address] [id number] [place] [address] Sep, [facility] [address] [id number] [place] [address] Aug, [facility] [address] [id number] [place] [address] Aug, [facility] [address] [id number] [place] [address] Aug, [facility] [place] [facility] [address] [id number] [place] [address] Aug, [facility] [address] [id number] [place] [address] Aug, [facility] [address] [id number] [address] 06 Aug, 2011 [facility] [place] [facility] [address] [id number] [place] [address] 25 Jun, 2011 [facility] [place] [facility] [address] [id number] [place] [address] 20 Jun, 2011 [facility] [place] [facility] [address] [id number] [place] [address]- [address] 14 Jun, 2011 [facility] [place] [facility] [address] [id number] [place] [address]- [address] 14 Jun, 2011 [facility] [place] [facility] [address] [id number] [place] [address]- [address] 16 Apr, 2011 [facility] [place] [facility] [address] [id number] [place] [address] Mar, [facility] [place] [facility] [address] [id number] [place] [address] Feb, [facility] [place] [facility] [address] [id number] [place] [address]- [address] Sep, [facility] [place] [facility] [address] [id number] [place] [address] Aug, [facility] [place] [facility] [address] [id number] [place] [address] Aug, [facility] [place] [facility] [address] [id number], [place] [address] Jul, [facility] [place] [facility] [address] [id number] [place] [address] Jul, [facility] [place] [facility] [address] [id number] [place] [address] Jul, [facility] [place] [facility] [address] [id number] [place] [address] Jun, [facility] [place] [facility] [address] [id number] [place] [address] Apr, [facility] [place] [facility] [address] [facility] [id number] [place] [address] 17 Oct, 2009 [facility] [address] [id number] [address] Aug, [facility] [address] [id number], [place] [address] Jun, [facility] [address] [id number], [place] [address] Feb, [facility] [address] [id number], [place] [address] Aug, [facility] [address] [id number], [place] [address] Jun, [facility] [address] [id number], [place] [address] Jun, IMMUNIZATIONS No Known Immunizations SOCIAL HISTORY Never Assessed REASON FOR VISIT Medication question PLAN OF CARE VITAL SIGNS MEDICATIONS Unknown [...]
--- OUTSIDE RECORDS SUMMARY | 2018-11-24 04:42 | XMS REPORT ---
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 Active 04987633 Problem Chronic pain syndrome G89.4 Active 40421481 Problem Elevated platelet count D47.3 Active 514530497 Problem Urinary hesitancy R39.11 Active 5918112 Problem Major depressive disorder, recurrent, moderate F33.1 Active 11802273 Problem Posttraumatic stress disorder F43.10 Active 17071477 Problem Gastroesophageal reflux disease, esophagitis presence not specified K21.9 Active 865688008 Problem Other chronic pain G89.29 Active 55289962 ALLERGIES Substance Reaction Event Type Date Status Tramadol 50 Mg Tablet Failed UDS- neg for prescribed meds Non Drug Allergy Apr, Active Benzodiazepines Failed UDS- neg for prescribed meds Non Drug Allergy Apr Active Hydrocodone Failed UDS- neg for prescribed meds Non Drug Allergy Apr, Active Amphetamine Failed UDS- neg for prescribed meds Non Drug Allergy Apr, Active ENCOUNTERS Encounter Location Date Diagnosis [facility] [id number], [place] [address] Sep, Chronic pain syndrome G89.4 [facility] [id number], [place] [address] Sep, [facility] [id number], [place] [address] 7690 Sep, [facility] [address], [place] [address] Sep, [facility] [address] [address] Sep, [facility] [address] [place] [address]- 5073 Sep, [facility] [address] [place] [address] 180088- 2227 Sep, [facility] [address] [place] [address] 02045- 3805 Aug, [facility] [id number] [place] [address] 66560- 0516 Aug, Portal vein thrombosis I81 ; Chronic pain syndrome G89.4 and Other acute pulmonary embolism without acute cor pulmonale I26.99 [facility] [address], [place] [address] 56[address] Aug, [facility] [address] [place] [address] 06220- 8333 Aug, [facility] [address] [place] [address] 83965- 9260 Jul, Major depressive disorder, recurrent, moderate F33.1 and Posttraumatic stress disorder F43.10 [facility] [address], [place] [address] 54[address] Jul, Gastroesophageal reflux disease, esophagitis presence not specified K21.9 [facility] [address], [place] [address] 4579 Jun, [facility] [id number] [place] [address] 802990- 5596 Jun, [facility] [address], [place] [address]- 0797 Jun, Posttraumatic stress disorder F43.10 and 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 [facility] [address], [place] [address] 55[address] Apr, [facility] [id number] [place] [address] [id number]- 3296 Apr, Mass of sinus R22.0 ; 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 and Elevated platelet count D47.3 [facility] [id number] [place] [address] 78574- 1530 Apr, 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 and Posttraumatic stress disorder F43.10 [place] [id number] [place] [address] 49150- 3326 January, [place] [id number] [place] [address] 00896- 6468 January, Posttraumatic stress disorder F43.10 and 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 [place] [id number] [place] [address] 54243- 4791 Dec, 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 and Elevated platelet count D47.3 [place] [address] [place] [address] 83514 2546 Dec, [place] [address] [place] [address] 40126- 1147 Dec, Low energy R53.83 ; 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 ; Gastroesophageal reflux disease, esophagitis presence not specified K21.9 and Urinary hesitancy R39.11 [place] [address] [place] [address] 45590- 3427 Dec, Posttraumatic stress disorder F43.10 and 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 [place] [address] [place] [address] 34149- 6036 Oct, [place] [id number] [place] [address] 74270- 6650 Sep, Mass of sinus R22.0 [facility] [id number] [place] [address] 86762- 5893 Sep, Dysuria R30.0 ; Low back pain M54.5 ; Other chronic pain G89.29 ; Poor nutrition E63.9 ; Gastroesophageal reflux disease, esophagitis presence not specified K21.9 and Mass of sinus R22.0 [facility] [id number] [place] [address] 10445- 8313 Sep, Posttraumatic stress disorder F43.10 and 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 [facility] [address] [address]- 8923 Sep, [facility] [address] [address]- 4220 Aug, [facility] [address] [address]- 3594 Aug, Encounter for immunization Z23 [facility] [id number] [place] [address] 37400- 9162 Jul, Posttraumatic stress disorder F43.10 ; 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 and Major depressive disorder, recurrent, moderate F33.1 [facility] [id number] [place] [address] 13158- 4894 Jun, [facility] [id number] [place] [address] 27452- 6020 Jun, [facility] [id number] [place] [address] 71208- 5266 May, [facility] [id number] [place] [address] 29609- 4713 Apr, [facility] [id number] [place] [address] 64326- 1429 Apr, Posttraumatic stress disorder F43.10 and 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 [facility] [id number], [place] [address]- 8776 Mar, [facility] [address], [place] [address] 1986 Feb, [facility] [address] [address] January, [facility] [id number] [place] [address] 556767- 2800 January, Posttraumatic stress disorder F43.10 and 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 [facility] [address], [place] [address]- 5276 Dec, [facility] [address], [place] [address]- 6889 Nov, [facility] [address] 5[address] Nov, [facility] [address], [place] [address]- 4354 Oct, Posttraumatic stress disorder F43.10 and 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 [facility] [address] 8968 Sep, Encounter for immunization Z23 ; Posttraumatic stress disorder F43.10 and 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 [facility] [address], [place] [address]- 6986 Aug, [facility] [id number], [place] [address]- 7266 Aug, [facility] [address] 4847 Jul, Encounter for immunization Z23 ; Posttraumatic stress disorder F43.10 and 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 [facility] [address] 9076 Jun, [facility] [address], [place] [address]- 4806 Jun, Mass of sinus R22.0 ; Low back pain M54.5 and Paroxysmal atrial fibrillation I48.0 [facility] [address], [place] [address]- 4576 May, [facility] [id number] [place] [address] 77537- 6978 Apr, Posttraumatic stress disorder 309.81 and Major depressive disorder, recurrent episode, moderate 296.32 [facility] [id number] [place] [address] 26897- 7147 Apr, [facility] [id number] [place] [address]- 2895 Mar, Major depressive disorder, recurrent episode, moderate 296.32 and Posttraumatic stress disorder 309.81 [facility] [address], [place] [address]- 2447 Feb, [facility] [address], [place] [address]- 8486 Feb, [facility] [address], [place] [address]- 5997 January, [facility] [address], [place] [address]- 8178 January, [facility] [address], [place] [address]- 9996 January, [facility] [address], [place] [address]- 9565 Dec, [facility] [address], [place] [address]- 8689 Dec, [facility] [address], [place] [address]- 2546 Nov, [facility] [address], [place] [address]- 7234 Nov, 2014 [facility] [place] [facility] [address] [id number] [place] [address]- 8999 Nov, 2014 [facility] [place] [facility] [address] [id number] [place] [address]- 0651 Nov, 2014 [facility] [place] [facility] [address] [facility] [id number] [place] [address]- 8662 Nov, 2014 [facility] [place] [facility] [address] [facility] [id number] [place] [address]- 8186 Nov, 2014 [facility] [place] [facility] [address] [id number] [place] [address]- 3900 Nov, [facility] [place] [facility] [address] [id number] [place] [address]- 4513 Nov, [facility] [place] [facility] [address] [facility] [id number] [place] [address]- 6401 Oct, 2014 [facility] [place] [facility] [address] [facility] [id number] [place] [address]- 7404 Oct, 2014 [facility] [place] [facility] [address] [facility] [id number] [place] [address]- 9330 Oct, 2014 [facility] [place] [facility] [address] [facility] [id number] [place] [address]- 4142 Oct, 2014 [facility] [place] [facility] [address] [facility] [id number] [place] [address]- 4985 Oct, 2014 [facility] [place] [facility] [address] [facility] [id number] [address]- 7063 Oct, 2014 [facility] [place] [facility] [address] [facility] [id number] [place] [address]- 7432 Oct, 2014 [facility] [place] [facility] [address] [facility] [id number], [place] [address]- 6530 Oct, 2014 [facility] [place] [facility] [address] [facility] [id number] [place] [address]- 5111 Oct, 2014 [facility] [place] [facility] [address] [id number] [place] [address]- 1862 Oct, 2014 [facility] [place] [facility] [address] [id number] [place] [address]- 7263 Oct, 2014 [facility] [place] [facility] [address] [id number] [place] [address]- 5324 Oct, 2014 [facility] [place] [facility] [address] [id number] [place] [address]- 4827 Oct, 2014 [facility] [place] [facility] [address] [id number] [place] [address]- 1805 Oct, 2014 [facility] [place] [facility] [address] [id number] [place] [address]- 3044 Oct, 2014 [facility] [place] [facility] [address] [facility] [id number] [place] [address]- 5751 Oct, 2014 [facility] [place] [facility] [address] [facility] [id number] [place] [address]- 6743 Sep, [facility] [place] [facility] [address] [facility] [id number] [place] [address]- 5719 Sep, [facility] [place] [facility] [address] [facility] [id number], [place] [address]- 2248 Sep, [facility] [place] [facility] [address] [facility] [id number], [place] [address]- 0434 Sep, [facility] [place] [facility] [address] [id number], [place] [address]- 2125 Aug, [facility] [place] [facility] [address] [id number] [place] [address]- 2510 Aug, [facility] [place] [facility] [address] [id number] [place] [address]- 9549 Aug, [facility] [place] [facility] [address] [facility] [id number]- 4309 Aug, [facility] [place] [facility] [address] [id number], [place] [address]- 0775 Aug, [facility] [place] [facility] [address] [id number] [place] [address]- 1317 Aug, [facility] [place] [facility] [address] [id number] [place] [address]- 2345 Aug, [facility] [place] [facility] [address] [facility] [id number] [place] [address]- 8953 Aug, [facility] [place] [facility] [address] [id number] [place] [address]- 4965 Aug, [facility] [place] [facility] [address] [id number] [place] [address]- 6741 Aug, [facility] [place] [facility] [address] [id number] [place] [address]- 3540 Aug, [facility] [place] [facility] [address] [facility] [id number] [place] [address]- 5851 Aug, [facility] [place] [facility] [address] [id number] [place] [address]- 7368 Aug, [facility] [place] [facility] [address] [id number] [place] [address]- 1895 Aug, [facility] [place] [facility] [address] [facility] [id number] [place] [address]- 6790 Aug, [facility] [place] [facility] [address] [id number] [place] [address]- 5465 Aug, [facility] [place] [facility] [address] [id number], [place] [address]- 0717 Jul, [facility] [place] [facility] [address] [id number] [place] [address]- 2154 Jul, [facility] [place] [facility] [address] [facility] [id number] [place] [address]- 3560 Jul, [facility] [place] [facility] [address] [facility] [id number] [place] [address]- 4984 Jul, [facility] [place] [facility] [address] [id number] [place] [address]- 0362 Jul, [facility] [place] [facility] [address] [id number] [place] [address]- 2234 Jul, [facility] [place] [facility] [address] [id number] [place] [address]- 7702 Jun, [facility] [place] [facility] [address] [id number] [place] [address]- 3590 Jun, [facility] [place] [facility] [address] [id number] [place] [address]- 2107 Jun, [facility] [place] [facility] [address] [id number] [place] [address]- 9823 Jun, [facility] [place] [facility] [address] [id number] [place] [address]- 5469 Jun, [facility] [place] [facility] [address] [id number] [place] [address]- 5183 Jun, [facility] [place] [facility] [address] [id number] [place] [address]- 5540 Jun, [facility] [place] [facility] [address] [id number] [place] [address]- 3100 Jun, [facility] [place] [facility] [address] [id number] [place] [address]- 7347 Jun, [facility] [place] [facility] [address] [id number] [place] [address]- 0386 Jun, [facility] [place] [facility] [address] [id number] [place] [address]- 2256 Jun, [facility] [place] [facility] [address] [id number] [place] [address]- 8793 Jun, [facility] [place] [facility] [address] [id number] [place] [address]- 1178 Jun, [facility] [place] [facility] [address] [id number] [place] [address]- 8741 Jun, [facility] [place] [facility] [address] [id number] [place] [address]- 7758 May, [facility] [place] [facility] [address] [id number] [place] [address]- 7393 May, [facility] [place] [facility] [address] [id number] [place] [address]- 3573 May, [facility] [place] [facility] [address] [id number] [place] [address]- 4086 May, [facility] [place] [facility] [address] [id number] [place] [address]- 4889 Apr, [facility] [place] [facility] [address] [id number] [place] [address]- 4341 Apr, [facility] [place] [facility] [address] [id number] [place] [address]- 3895 Apr, [facility] [place] [facility] [address] [id number] [place] [address]- 9644 Apr, [facility] [place] [facility] [address] [id number] [place] [address]- 9539 Mar, [facility] [place] [facility] [address] [id number] [place] [address]- 6866 Mar, [facility] [place] [facility] [address] [id number] [place] [address]- 0785 Mar, [facility] [place] [facility] [address] [id number], [place] [address]- 5455 Mar, [facility] [place] [facility] [address] [id number] [place] [address]- 1614 Mar, [facility] [place] [facility] [address] [id number] [place] [address]- 1075 Mar, [facility] [place] [facility] [address] [id number] [place] [address]- 1182 Mar, [facility] [place] [facility] [address] [id number] [place] [address]- 3801 Mar, [facility] [place] [facility] [address] [id number] [place] [address]- 4489 Mar, [facility] [place] [facility] [address] [id number] [place] [address]- 7503 Mar, [facility] [place] [facility] [address] [id number] [place] [address]- 5333 Mar, [facility] [place] [facility] [address] [id number] [place] [address]- 8637 Mar, [facility] [place] [facility] [address] [id number] [place] [address]- 5268 Feb, [facility] [place] [facility] [address] [id number] [place] [address]- 1052 Feb, [facility] [place] [facility] [address] [id number] [place] [address]- 6809 Feb, [facility] [place] [facility] [address] [id number] [place] [address]- 2405 Feb, [facility] [place] [facility] [address] [id number] [place] [address]- 6575 Feb, [facility] [place] [facility] [address] [id number] [place] [address]- 1385 Feb, [facility] [place] [facility] [address] [id number] [place] [address]- 9225 January, [facility] [place] [facility] [address] [id number] [place] [address]- 6631 January, [facility] [place] [facility] [address] [id number] [place] [address]- 1804 January, [facility] [place] [facility] [address] [id number] [place] [address]- 9357 January, [facility] [place] [facility] [address] [id number] [place] [address]- 3871 January, [facility] [place] [facility] [address] [id number] [place] [address]- 4865 January, [facility] [place] [facility] [address] [id number] [place] [address]- 7700 Nov, [facility] [place] [facility] [address] [id number] [place] [address]- 7147 Nov, [facility] [place] [facility] [address] [id number] [place] [address]- 2556 Nov, [facility] [place] [facility] [address] [id number] [place] [address]- 7178 Nov, [facility] [place] [facility] [address] [id number] [place] [address]- 2067 Oct, [facility] [place] [facility] [address] [id number] [place] [address]- 4014 Oct, [facility] [place] [facility] [address] [id number] [place] [address]- 2914 Sep, [facility] [place] [facility] [address] [id number] [place] [address]- 4272 Sep, [facility] [place] [facility] [address] [id number] [place] [address] Sep, [facility] [place] [facility] [address] [id number] [place] [address] Sep, [facility] [place] [facility] [address] [id number] [place] [address] Sep, [facility] [place] [facility] [address] [id number] [place] [address] Aug, [facility] [place] [facility] [address] [id number] [place] [address] Aug, [facility] [place] [facility] [address] [id number] [place] [address] Jul, [facility] [place] [facility] [address] [id number] [place] [address] Jul, [facility] [place] [facility] [address] [id number] [place] [address] Jul, [facility] [place] [facility] [address] [id number] [place] [address] Jun, [facility] [place] [facility] [address] [id number] [place] [address] Jun, [facility] [place] [facility] [address] [id number] [place] [address] Jun, [facility] [place] [facility] [address] [id number] [place] [address] Jun, [facility] [place] [facility] [address] [id number] [place] [address] Apr, [facility] [place] [facility] [address] [id number] [place] [address] Mar, [facility] [place] [facility] [address] [id number] [place] [address] Mar, [facility] [place] [facility] [address] [id number] [place] [address] January, [facility] [place] [facility] [address] [id number] [place] [address] Dec, [facility] [place] [facility] [address] [id number] [place] [address] Dec, [facility] [place] [facility] [address] [id number] [place] [address] Nov, [facility] [place] [facility] [address] [id number] [place] [address] Nov, [facility] [place] [facility] [address] [id number] [place] [address] Nov, [facility] [place] [facility] [address] [id number] [place] [address] Nov, [facility] [place] [facility] [address] [id number] [place] [address] Nov, [facility] [place] [facility] [address] [id number] [place] [address] Nov, [facility] [place] [facility] [address] [id number] [place] [address] Oct, [facility] [place] [facility] [address] [id number] [place] [address] Sep, [facility] [place] [facility] [address] [id number] [place] [address] Aug, [facility] [place] [facility] [address] [id number] [place] [address] Aug, [facility] [place] [facility] [address] [id number] [place] [address] Aug, [facility] [place] [facility] [address] [id number] [place] [address] Aug, [facility] [place] [facility] [address] [id number] [place] [address] Jul, [facility] [place] [facility] [address] [id number] [place] [address] Jul, [facility] [place] [facility] [address] [facility] [id number] [place] [address] Jun, [facility] [place] [facility] [address] [id number] [place] [address] Jun, [facility] [place] [facility] [address] [id number] [place] [address] Jun, [facility] [place] [facility] [address] [id number] [place] [address] Jun, [facility] [place] [facility] [address] [id number] [place] [address] May, [facility] [place] [facility] [address] [id number] [place] [address] 18 May, 2012 [facility] [place] [facility] [address] [id number] [place] [address] 14 May, 2012 [facility] [place] [facility] [address] [id number] [place] [address] 10 May, 2012 [facility] [place] [facility] [address] [id number] [place] [address] 04 May, 2012 [facility] [place] [facility] [address] [id number] [place] [address] 30 Apr, 2012 [facility] [place] [facility] [address] [id number] [place] [address] Apr, [facility] [place] [facility] [address] [id number] [place] [address] Mar, [facility] [place] [facility] [address] [id number] [place] [address] Mar, [facility] [place] [facility] [address] [id number] [place] [address] Mar, [facility] [place] [facility] [address] [id number] [place] [address] Feb, [facility] [place] [facility] [address] [id number] [place] [address] January, [facility] [place] [facility] [address] [id number] [place] [address] Nov, [facility] [place] [facility] [address] [id number] [place] [address] Nov, [facility] [place] [facility] [address] [id number] [place] [address] Nov, [facility] [place] [facility] [address] [id number] [place] [address] 2011 [facility] [place] [facility] [address] [id number] [place] [address] Nov, [facility] [place] [facility] [address] [id number] [place] [address] 23 Oct, 2011 [facility] [address] [id number] [place] [address] Oct, [facility] [address] [id number] [place] [address] Oct, [facility] [address] [id number] [place] [address] 13 Oct, 2011 [facility] [address] [id number] [place] [address] 10 Oct, 2011 [facility] [address] [id number] [place] [address] Sep, [facility] [address] [id number] [place] [address] Sep, [facility] [address] [id number] [place] [address] Sep, [facility] [address] [id number] [place] [address] Sep, [facility] [address] [id number] [place] [address] Sep, [facility] [address] [id number] [place] [address] Sep, [facility] [address] [id number] [place] [address] Sep, [facility] [address] [id number] [place] [address] Aug, [facility] [address] [id number] [place] [address] Aug, [facility] [address] [id number] [place] [address] 16 Aug, 2011 [facility] [address] [id number] [place] [address] Aug, [facility] [place] [facility] [address] [id number] [place] [address] 09 Aug, 2011 [facility] [place] [facility] [address] [id number] [place] [address] Aug, [facility] [place] [facility] [address] [id number] [place] [address] Jun, [facility] [place] [facility] [address] [id number] [place] [address] Jun, [facility] [place] [facility] [address] [id number] [place] [address] Jun, [facility] [place] [facility] [address] [id number] [place] [address] Jun, [facility] [place] [facility] [address] [id number] [place] [address] Apr, [facility] [place] [facility] [address] [id number] [place] [address] Mar, [facility] [place] [facility] [address] [id number] [place] [address] Feb, [facility] [place] [facility] [address] [id number], [place] [address] Sep, [facility] [place] [facility] [address] [id number], [place] [address] Aug, [facility] [place] [facility] [address] [id number], [place] [address] Aug, [facility] [place] [facility] [address] [id number] [place] [address] Jul, [facility] [place] [facility] [address] [id number], [place] [address] Jul, [facility] [place] [facility] [address] [id number], [place] [address] Jul, [facility] [place] [facility] [address] [id number], [place] [address] Jun, [facility] [address] [id number], [place] [address] Apr, [facility] [address] [id number], [place] [address] Oct, [facility] [id number], [place] [address] Aug, [facility] [id number], [place] [address] Jun, [facility] [id number], [place] [address] Feb, [facility] [id number], [place] [address] Aug, [facility] [id number], [place] [address] Jun, [facility] [address] [id number], [place] [address] Jun, IMMUNIZATIONS No Known Immunizations SOCIAL HISTORY Never Assessed REASON FOR VISIT BH intake Nelly, not taking amytiptyline, atorvastatin, and cymbalta due to pt having headaches. PLAN OF CARE Activity Details Follow Up 4 Weeks Reason: VITAL SIGNS Height 72 in 2017-05-12 Weight 227.7 lbs 2017-05-12 Heart Rate 84 bpm 2017-05-12 Respiratory Rate 20 2017-05-12 BMI 30.88 kg/m2 2017-05-12 Blood pressure systolic 110 mmHg 2017-05-12 Blood pressure diastolic 70 mmHg 2017-05-12 MEDICATIONS Medication Instructions Dosage Frequency Start Date End Date Duration Status Hydrocodone-Acetaminophen 10-325 MG/15ML Orally every 6 hrs 5 ml as needed 6h Active Aspir-81 81 MG Orally Once a day 1 tablet 24h Active Prazosin HCl 1 MG Orally Once a day 1 capsule at bedtime 24h Apr, 30 day(s) Active Pantoprazole Sodium 40 mg Orally Once a day 1 tablet 24h 90 days Active Abilify 5 MG Orally Once a day 1 tablet 24h Sep, 30 days Active Cymbalta 60 MG Orally Once a day in the morning 2 capsule 30 days Active Xanax 1 MG Orally three times [...]
--- OUTSIDE RECORDS SUMMARY | 2018-11-24 04:43 | XMS REPORT ---
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 Active 84760094 Problem Chronic pain syndrome G89.4 Active 19665497 Problem Portal vein thrombosis I81 Active 89074797 Problem Chronic hepatitis C without hepatic coma B18.2 Active 385511630 Problem Elevated platelet count D47.3 Active 776807898 Problem Other chronic pain G89.29 Active 49912611 Problem Major depressive disorder, recurrent, moderate F33.1 Active 90245124 Problem Urinary hesitancy R39.11 Active 8313256 Problem Gastroesophageal reflux disease, esophagitis presence not specified K21.9 Active 049412499 ALLERGIES No Information ENCOUNTERS Encounter Location Date Diagnosis [facility] [id number] [address] Sep, Chronic pain syndrome G89.4 [facility] [id number] [address] 1267 Sep, [facility] [id number] [place] [address] 88092- 6743 Sep, [facility] [id number] [address] 6959 Sep, [facility] [id number] [place] [address] 41766- 6409 Sep, [facility] [id number] [place] [address] 08030- 4470 Sep, [facility] [id number] [place] [address] 70037- 4319 Sep, [facility] [id number] [place] [address] 46343- 2207 Aug, [facility] [id number] [place] [address] 80003- 2196 Aug, Portal vein thrombosis I81 ; Chronic pain syndrome G89.4 ; Other acute pulmonary embolism without acute cor pulmonale I26.99 and Chronic hepatitis C without hepatic coma B18.2 [facility] [id number] [place] [address] 87633- 2035 Aug, [facility] [id number] [place] [address] 40927- 9275 Aug, [facility] [id number] [place] [address] 97966- 2763 Jul, Major depressive disorder, recurrent, moderate F33.1 and Posttraumatic stress disorder F43.10 [facility] [id number] [place] [address] 09924- 0927 Jul, Gastroesophageal reflux disease, esophagitis presence not specified K21.9 [facility] [id number] [place] [address] 17360- 4278 Jun, [facility] [id number] [place] [address] 14186- 9546 Jun, [facility] [id number] [place] [address] 71422- 9554 Jun, Posttraumatic stress disorder F43.10 and 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 [facility] [id number] [place] [address] 57763- 8348 Apr, [facility] [id number] [place] [address] 37435- 9617 Apr, Mass of sinus R22.0 ; 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 and Elevated platelet count D47.3 [facility] [id number] [place] [address] 57503- 8588 Apr, 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 and Posttraumatic stress disorder F43.10 [facility] [id number] [place] [address] 26346- 7558 January, [facility] [id number] [place] [address] 56246- 4866 January, Posttraumatic stress disorder F43.10 and 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 [facility] [id number] [place] [address] 08101- 0578 Dec, 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 and Elevated platelet count D47.3 [facility] [id number] [place] [address] 55362- 5587 Dec, [facility] [id number] [place] [address] 08937- 8610 Dec, Low energy R53.83 ; 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 ; Gastroesophageal reflux disease, esophagitis presence not specified K21.9 and Urinary hesitancy R39.11 [facility] [id number] [place] [address] 87213- 6060 Dec, Posttraumatic stress disorder F43.10 and 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 [facility] [id number] [place] [address] 03371- 1057 Oct, [facility] [id number] [place] [id number] [address]359 Sep, Mass of sinus R22.0 [facility] [id number] [place] [address] 98599- 6400 Sep, Dysuria R30.0 ; Low back pain M54.5 ; Other chronic pain G89.29 ; Poor nutrition E63.9 ; Gastroesophageal reflux disease, esophagitis presence not specified K21.9 and Mass of sinus R22.0 [facility] [id number] [place] [address] 83109- 7050 Sep, Posttraumatic stress disorder F43.10 and 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 [facility] [address] [address]- [address] Sep, [facility] [address] 01875- 9387 Aug, [facility] [address] 18893- 9029 Aug, Encounter for immunization Z23 [facility] [address] 21980- 5487 Jul, Posttraumatic stress disorder F43.10 ; 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 and Major depressive disorder, recurrent, moderate F33.1 [facility] [id number] [place] [address] 75886- 8228 Jun, [facility] [id number] [place] [address] 39614- 0880 Jun, [facility] [id number] [place] [address] 71648- 5934 May, [facility] [id number] [place] [address] 66722- 3363 Apr, [facility] [id number] [place] [address] 70304- 7950 Apr, Posttraumatic stress disorder F43.10 and 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 [facility] [id number] [place] [address] 25067- 6811 Mar, [facility] [id number] [place] [address] 08204- 8785 Feb, [facility] [id number] [address]- 5265 January, [facility] [id number] [place] [address] 85619- 3130 January, Posttraumatic stress disorder F43.10 and 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 [facility] [id number] [place] [address] 94010- 6432 Dec, [facility] [id number] [place] [address] 41183- 6104 Nov, [facility] [id number] [place] [address] 72849- 5618 Nov, [facility] [id number] [place] [address] 42537- 1215 Oct, Posttraumatic stress disorder F43.10 and 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 [facility] [id number] [address]- 6484 Sep, Encounter for immunization Z23 ; Posttraumatic stress disorder F43.10 and 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 [facility] [id number] [address]- 4847 Aug, [facility] [id number] [address]- 5081 Aug, [facility] [id number] [place] [address] 52554- 1697 Jul, Encounter for immunization Z23 ; Posttraumatic stress disorder F43.10 and 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 [facility] [id number] [place] [address] 62787- 7702 Jun, [facility] [id number] [address]- 9128 Jun, Mass of sinus R22.0 ; Low back pain M54.5 and Paroxysmal atrial fibrillation I48.0 [facility] [id number] [address]- 8189 May, [facility] [id number] [address]- 0933 Apr, Posttraumatic stress disorder 309.81 and Major depressive disorder, recurrent episode, moderate 296.32 [facility] [id number] [address]- 5489 Apr, [facility] [id number] [address]- 2348 Mar, Major depressive disorder, recurrent episode, moderate 296.32 and Posttraumatic stress disorder 309.81 [facility] [id number] [address]- 1703 Feb, [facility] [id number] [address]- 0337 Feb, [facility] [id number] [address]- 9286 January, [facility] [id number] [address]- 4425 January, [facility] [id number] [address]- 2553 January, [facility] [id number] [address]- 0025 Dec, [facility] [id number] [address]- 2241 Dec, [facility] [id number] 0077 Nov, [facility] [id number] [address]- 8486 Nov, [facility] [id number] [address]- 7091 Nov, [facility] [id number] [address]- 9114 06 Nov, 2014 [facility] [place] [facility] [address] [id number] [place] [address]- 8664 Nov, 2014 [facility] [place] [facility] [address] [id number] [place] [address]- 2734 Nov, 2014 [facility] [place] [facility] [address] [facility] [id number] [place] [address]- 6236 Nov, 2014 [facility] [place] [facility] [address] [id number] [place] [address]- 7887 Nov, 2014 [facility] [place] [facility] [address] [id number] [place] [address]- 2057 Oct, 2014 [facility] [place] [facility] [address] [id number] [place] [address]- 2329 Oct, 2014 [facility] [place] [facility] [address] [facility] [id number] [place] [address]- 3700 16 Oct, 2014 [facility] [place] [facility] [address] [facility] [id number] [place] [address]- 8875 16 Oct, 2014 [facility] [place] [facility] [address] [facility] [id number] [place] [address]- 8335 16 Oct, 2014 [facility] [place] [facility] [address] [facility] [id number] [place] [address]- 9355 16 Oct, 2014 [facility] [place] [facility] [address] [facility] [id number] [place] [address]- 9715 Oct, 2014 [facility] [place] [facility] [address] [facility] [id number] [place] [address]- 7612 06 Oct, 2014 [facility] [place] [facility] [address] [facility] [id number] [place] [address]- 6586 06 Oct, 2014 [facility] [place] [facility] [address] [facility] [id number] [place] [address]- 6541 06 Oct, 2014 [facility] [place] [facility] [address] [facility] [id number] [place] [address]- 9591 Oct, 2014 [facility] [place] [facility] [address] [id number] [place] 4732 Oct, 2014 [facility] [place] [facility] [address] [id number] [place] [address]- 8617 Oct, 2014 [facility] [place] [facility] [address] [id number] [place] 9083 Oct, 2014 [facility] [place] [facility] [address] [id number] [place] [address]- 0535 Oct, 2014 [facility] [place] [facility] [address] [id number] [place] [address]- 2325 Oct, [facility] [place] [facility] [address] [facility] [id number] [place] [address]- 2565 Sep, [facility] [place] [facility] [address] [facility] [id number] [place] [address]- 2775 Sep, [facility] [place] [facility] [address] [id number] [place] [address]- 5816 Sep, [facility] [place] [facility] [address] [facility] [id number] [place] [address]- 2839 Sep, [facility] [place] [facility] [address] [facility] [id number] [place] [address]- 7321 Aug, [facility] [place] [facility] [address] [facility] [id number] [place] [address]- 1171 Aug, [facility] [place] [facility] [address] [id number] [place] [address]- 4725 Aug, [facility] [place] [facility] [address] [id number] [place] [address]- 6377 Aug, [facility] [place] [facility] [address] [facility] [id number] [place] [address]- 4265 Aug, [facility] [place] [facility] [address] [facility] [id number] [place]- 9247 Aug, [facility] [place] [facility] [address] [id number] [place] [address]- 6101 Aug, [facility] [place] [facility] [address] [id number] [place] 5972 Aug, [facility] [place] [facility] [address] [id number] [place] 6467 Aug, [facility] [place] [facility] [address] [id number] [place] 8721 Aug, [facility] [place] [facility] [address] [id number] [place] [address]- 8270 Aug, [facility] [place] [facility] [address] [id number] [place] [address]- 0995 Aug, [facility] [place] [facility] [address] [id number] [place] [address]- 8045 Aug, [facility] [place] [facility] [address] [id number] [place] [address]- 7451 Aug, [facility] [place] [facility] [address] [id number] [place] [address]- 4547 Aug, [facility] [place] [facility] [address] [id number] [place] [address]- 3764 Aug, [facility] [place] [facility] [address] [id number] [place] [address]- 2555 Jul, [facility] [place] [facility] [address] [id number] [place] [address]- 2412 Jul, [facility] [place] [facility] [address] [id number] [place] [address]- 2939 Jul, [facility] [place] [facility] [address] [id number] [place]- 9169 Jul, [facility] [place] [facility] [address] [id number] [place] [address]- 8634 Jul, [facility] [place] [facility] [address] [id number] [place] [address]- 2130 Jul, [facility] [place] [facility] [address] [id number] [place] [address]- 9956 Jun, [facility] [place] [facility] [address] [id number] [place] [address]- 4688 Jun, [facility] [place] [facility] [address] [id number] [place] [address]- 3800 Jun, [facility] [place] [facility] [address] [id number] [place] [address]- 4616 Jun, [facility] [place] [facility] [address] [id number] [place] [address]- 0394 Jun, [facility] [place] [facility] [address] [id number] [place] [address]- 3038 Jun, [facility] [place] [facility] [address] [id number] [place] [address]- 9605 Jun, [facility] [place] [facility] [address] [id number] [place] [address]- 5314 Jun, [facility] [place] [facility] [address] [id number] [place] [address]- 1301 Jun, [facility] [place] [facility] [address] [id number] [place] [address]- 4790 Jun, [facility] [place] [facility] [address] [id number] [place] [address]- 7016 Jun, [facility] [place] [facility] [address] [id number] [address]- 6857 Jun, [facility] [place] [facility] [address] [id number] [place] [address]- 1336 Jun, [facility] [place] [facility] [address] [id number] [place] [address]- 2199 Jun, [facility] [place] [facility] [address] [id number] [place] [address]- 9485 16 May, 2014 [facility] [place] [facility] [address] [id number] [place] [address]- 2455 May, [facility] [place] [facility] [address] [id number] [place] [address]- 0485 May, [facility] [place] [facility] [address] [id number] [place] [address]- 8854 May, [facility] [place] [facility] [address] [id number] [place] [address]- 8009 Apr, [facility] [place] [facility] [address] [id number] [place] [address]- 1550 Apr, [facility] [place] [facility] [address] [id number] [place] [address]- 3261 Apr, [facility] [place] [facility] [address] [id number] [place] [address]- 0436 Apr, [facility] [place] [facility] [address] [id number] [place] [address]- 3302 Mar, [facility] [place] [facility] [address] [id number] [place] [address]- 1542 Mar, [facility] [place] [facility] [address] [id number] [place] [address]- 8972 Mar, [facility] [place] [facility] [address] [id number] [place] [address]- 0809 Mar, [facility] [place] [facility] [address] [id number] [place] [address]- 6158 Mar, [facility] [place] [facility] [address] [id number] [place] [address]- 8990 Mar, [facility] [place] [facility] [address] [id number] [place] [address]- 8383 Mar, [facility] [place] [facility] [address] [id number] [place] [address]- 3123 Mar, [facility] [place] [facility] [address] [id number] [place] [address]- 3617 Mar, [facility] [place] [facility] [address] [id number] [place] [address]- 5315 Mar, [facility] [place] [facility] [address] [id number] [place] [address]- 4505 Mar, [facility] [place] [facility] [address] [id number] [place] [address]- 5714 Mar, [facility] [place] [facility] [address] [id number] [place] [address]- 5639 Feb, [facility] [place] [facility] [address] [id number] [place] [address]- 6586 Feb, [facility] [place] [facility] [address] [id number] [place] [address]- 0568 Feb, [facility] [place] [facility] [address] [id number] [place] [address]- 1336 Feb, [facility] [place] [facility] [address] [id number] [place] [address]- 8033 Feb, [facility] [place] [facility] [address] [id number] [place] [address]- 5637 Feb, [facility] [place] [facility] [address] [id number] [place] [address]- 5145 January, [facility] [place] [facility] [address] [id number] [place] [address]- 1303 January, [facility] [place] [facility] [address] [id number] [place] [address]- 1578 January, [facility] [place] [facility] [address] [id number] [place] [address]- 9870 January, [facility] [place] [facility] [address] [id number] [place] [address]- 6433 January, [facility] [place] [facility] [address] [id number] [place] [address]- 8662 January, [facility] [place] [facility] [address] [id number] [place] [address]- 4438 Nov, [facility] [place] [facility] [address] [id number] [place] [address] Nov, [facility] [place] [facility] [address] [id number] [place] [address] Nov, [facility] [place] [facility] [address] [id number] [place] [address] Nov, [facility] [place] [facility] [address] [id number] [place] [address] Oct, [facility] [place] [facility] [address] [id number] [place] [address] Oct, [facility] [place] [facility] [address] [id number] [place] [address] Sep, [facility] [place] [facility] [address] [id number] [place] [address] Sep, [facility] [place] [facility] [address] [id number] [place] [address] Sep, [facility] [place] [facility] [address] [id number] [place] [address] Sep, [facility] [place] [facility] [address] [id number] [place] [address] Sep, [facility] [place] [facility] [address] [id number] [place] [address] Aug, [facility] [place] [facility] [address] [id number] [place] [address] Aug, [facility] [place] [facility] [address] [id number] [place] [address] Jul, [facility] [place] [facility] [address] [id number] [place] [address] Jul, [facility] [place] [facility] [address] [id number] [place] [address] Jul, [facility] [place] [facility] [address] [id number] [place] [address] Jun, [facility] [address] [id number] [place] [address] Jun, [facility] [place] [facility] [address] [id number] [place] [address] Jun, [facility] [address] [id number] [place] [address] Jun, [facility] [place] [facility] [address] [id number] [place] [address] Apr, [facility] [address] [id number] [place] [address] Mar, [facility] [place] [facility] [address] [id number] [place] [address] Mar, [facility] [address] [id number] [place] [address] January, [facility] [address] [id number] [place] [address] Dec, [facility] [place] [facility] [address] [id number] [place] [address] Dec, [facility] [address] [id number] [place] [address] Nov, [facility] [place] [facility] [address] [id number] [place] [address] Nov, [facility] [place] [facility] [address] [id number] [place] [address] Nov, [facility] [place] [facility] [address] [id number] [place] [address] 2012 [facility] [place] [facility] [address] [id number] [place] [address] 07 Nov, 2012 [facility] [place] [facility] [address] [id number] [place] [address] Nov, [facility] [place] [facility] [address] [id number] [place] [address] Oct, [facility] [place] [facility] [address] [id number] [place] [address] Sep, [facility] [place] [facility] [address] [id number] [place] [address] Aug, [facility] [place] [facility] [address] [id number] [place] [address] Aug, [facility] [place] [facility] [address] [id number] [place] [address] Aug, [facility] [place] [facility] [address] [id number] [place] [address] Aug, [facility] [place] [facility] [address] [facility] [id number] [place] [address] Jul, [facility] [place] [facility] [address] [id number] [place] [address] Jul, [facility] [place] [facility] [address] [id number] [place] [address] Jun, [facility] [place] [facility] [address] [id number] [place] [address] Jun, [facility] [place] [facility] [address] [facility] [id number] [place] [address] Jun, [facility] [place] [facility] [address] [id number] [place] [address] 18 Jun, 2012 [facility] [place] [facility] [address] [id number] [place] [address] 21 May, 2012 [facility] [place] [facility] [address] [address] [id number] [place] [address] 18 May, 2012 [facility] [place] [facility] [address] [id number] [place] [address] 14 May, 2012 [facility] [place] [facility] [address] [id number] [place] [address] 10 May, 2012 [facility] [place] [facility] [address] [id number] [place] [address] May, [facility] [place] [facility] [address] [id number] [place] [address] Apr, [facility] [place] [facility] [address] [id number] [place] [address] Apr, [facility] [place] [facility] [address] [id number] [place] [address] Mar, [facility] [place] [facility] [address] [id number] [place] [address] Mar, [facility] [place] [facility] [address] [id number] [place] [address] Mar, [facility] [place] [facility] [address] [id number] [place] [address] Feb, [facility] [place] [facility] [address] [id number] [place] [address] January, [facility] [place] [facility] [address] [id number] [place] [address] Nov, [facility] [place] [facility] [address] [id number] [place] [address] Nov, [facility] [place] [facility] [address] [id number] [place] [address] Nov, [facility] [place] [facility] [address] [id number] [place] [address] Nov, [facility] [place] [facility] [address] [id number] [place] [address] Nov, [facility] [place] [facility] [address] [id number] [place] [address] Oct, [facility] [place] [facility] [address] [id number] [place] [address] Oct, [facility] [place] [facility] [address] [id number] [place] [address] 21 Oct, 2011 [facility] [address] [id number] [place] [address] 13 Oct, 2011 [facility] [place] [facility] [address] [id number] [place] [address] 10 Oct, 2011 [facility] [address] [id number] [place] [address] Sep, [facility] [place] [facility] [address] [id number] [place] [address] Sep, [facility] [place] [facility] [address] [id number] [place] [address] Sep, [facility] [address] [id number] [place] [address] Sep, [facility] [address] [id number] [place] [address] Sep, [facility] [address] [id number] [place] [address] Sep, [facility] [address] [id number] [place] [address] Sep, [facility] [address] [id number] [place] [address] Aug, [facility] [address] [id number] [place] [address] Aug, [facility] [place] [facility] [address] [id number] [place] [address] Aug, [facility] [place] [facility] [address] [id number] [place] [address] Aug, [facility] [place] [facility] [address] [id number] [place] [address] Aug, [facility] [place] [facility] [address] [id number] [place] [address] 06 Aug, 2011 [facility] [place] [facility] [address] [id number] [place] [address] 25 Jun, 2011 [facility] [place] [facility] [address] [id number] [place] [address] 20 Jun, 2011 [facility] [place] [facility] [address] [id number] [place] [address] 14 Jun, 2011 [facility] [place] [facility] [address] [id number] [place] [address] 14 Jun, 2011 [facility] [place] [facility] [address] [id number] [place] [address] 16 Apr, 2011 [facility] [place] [facility] [address] [id number] [place] [address] Mar, [facility] [place] [facility] [address] [id number] [place] [address] Feb, [facility] [place] [facility] [address] [id number] [place] [address] Sep, [facility] [place] [facility] [address] [id number] [place] [address] Aug, [facility] [place] [facility] [address] [id number] [place] [address] 83[address] Aug, [facility] [place] [facility] [address] [id number] [place] [address] Jul, [facility] [place] [facility] [address] [id number] [place] [address] Jul, [facility] [place] [facility] [address] [id number] [place] [address] Jul, [facility] [place] [facility] [address] [id number] [place] [address] Jun, [facility] [place] [facility] [address] [id number] [place] [address] Apr, [facility] [place] [facility] [address] [id number] [place] [address] 17 Oct, 2009 [facility] [address] [facility] [id number] [place] [address] Aug, [facility] [id number] [place] [address] Jun, [facility] [address] [id number] [address] Feb, [facility] [id number] [place] [address] Aug, [facility] [id number] [place] [address] Jun, [facility] [address] [id number] [address] Jun, IMMUNIZATIONS No Known Immunizations SOCIAL HISTORY Never Assessed REASON FOR VISIT PLAN OF CARE VITAL SIGNS MEDICATIONS Medication Instructions Dosage Frequency Start Date End Date Duration Status Hydrocodone-Acetaminophen 5-325 MG Orally 3 times a day 1 tablet as needed 8h Aug, Aug, 14 days Active RESULTS No Results PROCEDURES No [...]
--- OUTSIDE RECORDS SUMMARY | 2018-11-24 04:43 | XMS REPORT ---
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 [address]-30 81 MG Orally Once a day 1 tablet Ibuprofen [facility] [address]-24 800 MG Orally Three times a day as needed 1 tablet Diazepam [facility] 06657412460 10 MG TAKE ONE TABLET BY MOUTH FOUR TIMES DAILY NEEDED FOR ANXIETY (MUST LAST 30 DAYS) Amitriptyline HCl [facility] [address]-02 25 MG Orally Once a day Oct 02, 2015 1 tablet Cymbalta [facility] [address]-30 60 MG Orally Once a day Oct 02, 2015 1 capsule Procedures Procedure Coding System Code Date SINGLE IMMUNIZATION ADMIN CPT-4 64928 Oct 02, 2015 Office Visit, Est Pt., Level 3 CPT-4 16384 Oct 02, 2015 FLUARIX QUAD (3 & UP)--2014 CPT-4 13690 Oct 02, 2015 Vital Signs Date/Time: Oct 02, 2015 Blood Pressure Systolic 122 mmHg Weight 215.8 lbs Height 72 in BMI 29.26 Index Blood Pressure Diastolic 82 mmHg Results No Known Results Immunizations Vaccine Administration Date FLUARIX QUAD (3 & UP)-[employer]-2014Oct 02, 2015 Summary Purpose eClinical[employer] Submission
--- OUTSIDE RECORDS SUMMARY | 2018-11-24 04:43 | XMS REPORT ---
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
--- OUTSIDE RECORDS SUMMARY | 2018-11-24 04:43 | XMS REPORT ---
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 Active 00141418 Problem Chronic pain syndrome G89.4 Active 96438342 Problem Portal vein thrombosis I81 Active 31973059 Problem Chronic hepatitis C without hepatic coma B18.2 Active 284560745 Problem Elevated platelet count D47.3 Active 147228309 Problem Other chronic pain G89.29 Active 51010872 Problem Major depressive disorder, recurrent, moderate F33.1 Active 00190596 Problem Urinary hesitancy R39.11 Active 1657605 Problem Gastroesophageal reflux disease, esophagitis presence not specified K21.9 Active [id number] ALLERGIES No Information ENCOUNTERS Encounter Location Date Diagnosis [facility] [id number] [address] Sep, Chronic pain syndrome G89.4 [facility] [id number] [address] 0379 Sep, [facility] [id number] [place] [address] 83016- 1339 Sep, [facility] [address] [address] 1622 Sep, [facility] [id number] [place] [address] 79901- 7921 Sep, [facility] [id number] [place] [address] 61106- 0274 Sep, [facility] [id number] [place] [address] 52246- 1830 Sep, [facility] [id number] [place] [address] 74505- 0155 Aug, [facility] [id number] [place] [address] 59062- 1469 Aug, Portal vein thrombosis I81 ; Chronic pain syndrome G89.4 ; Other acute pulmonary embolism without acute cor pulmonale I26.99 and Chronic hepatitis C without hepatic coma B18.2 [facility] [id number] [place] [address] 28818- 9748 Aug, [facility] [id number] [place] [address] 01723- 0049 Aug, [facility] [id number] [place] [address] 27019- 1614 Jul, Major depressive disorder, recurrent, moderate F33.1 and Posttraumatic stress disorder F43.10 [facility] [id number] [place] [address] 65942- 3095 Jul, Gastroesophageal reflux disease, esophagitis presence not specified K21.9 [facility] [id number] [place] [address] 16131- 2345 Jun, [facility] [id number] [place] [address] 74585- 1740 Jun, [facility] [id number] [place] [address] 91525- 4910 Jun, Posttraumatic stress disorder F43.10 and 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 [facility] [id number] [place] [address] 18062- 3322 Apr, [facility] [id number] [place] [address] 94338- 5115 Apr, Mass of sinus R22.0 ; 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 and Elevated platelet count D47.3 [facility] [id number] [place] [address] 91904- 7663 Apr, 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 and Posttraumatic stress disorder F43.10 [facility] [id number] [place] [address] 41933- 7797 January, [facility] [id number] [place] [address] 17089- 1726 January, Posttraumatic stress disorder F43.10 and 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 [facility] [id number] [place] [address] 68283- 4954 Dec, 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 and Elevated platelet count D47.3 [facility] [id number] [place] [address] 14025- 5132 Dec, [facility] [id number] [place] [address] 27395- 3227 Dec, Low energy R53.83 ; 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 ; Gastroesophageal reflux disease, esophagitis presence not specified K21.9 and Urinary hesitancy R39.11 [facility] [id number] [place] [address] 59211- 3321 Dec, Posttraumatic stress disorder F43.10 and 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 [facility] [id number] [place] [address] 05143- 2650 Oct, [facility] [id number] [place] [address] [address]698 Sep, Mass of sinus R22.0 [facility] [address] [place] [address] 48819- 5272 Sep, Dysuria R30.0 ; Low back pain M54.5 ; Other chronic pain G89.29 ; Poor nutrition E63.9 ; Gastroesophageal reflux disease, esophagitis presence not specified K21.9 and Mass of sinus R22.0 [facility] [id number] [place] [address] 34760- 8471 Sep, Posttraumatic stress disorder F43.10 and 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 [facility] [address] 45535- 6996 Sep, [facility] [address] 34099- 3542 Aug, [facility] [address] 85448- 7802 Aug, Encounter for immunization Z23 [facility] [address] 03565- 6831 Jul, Posttraumatic stress disorder F43.10 ; 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 and Major depressive disorder, recurrent, moderate F33.1 [facility] [id number] [place] [address] 21574- 1948 Jun, [facility] [id number] [place] [address] 86938- 6886 Jun, [facility] [id number] [place] [address] 16935- 3782 May, [facility] [id number] [place] [address] 34743- 2473 Apr, [facility] [id number] [place] [address] 56981- 5946 Apr, Posttraumatic stress disorder F43.10 and 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 [facility] [id number] [place] [address] 93018- 5885 Mar, [facility] [id number] [place] [address] 45420- 0694 Feb, [facility] [address] [address]- 6079 January, [facility] [id number] [place] [address] 88397- 0906 January, Posttraumatic stress disorder F43.10 and 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 [facility] [id number] [place] [address] 21416- 3087 Dec, [facility] [id number] [place] [address] 92852- 6814 Nov, [facility] [id number] [place] [address] 76109- 3325 Nov, [facility] [address] [place] [address] 80036- 5631 Oct, Posttraumatic stress disorder F43.10 and 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 [facility] [address] [address]- 6455 Sep, Encounter for immunization Z23 ; Posttraumatic stress disorder F43.10 and 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 [facility] [address], [place] [address]- 1988 Aug, [facility] [address] [address]- 5337 Aug, [facility] [id number] [place] [address] 19786- 7039 Jul, Encounter for immunization Z23 ; Posttraumatic stress disorder F43.10 and 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 [facility] [address] [place] [address] 77895- 7762 Jun, [facility] [address] [address]- 9347 Jun, Mass of sinus R22.0 ; Low back pain M54.5 and Paroxysmal atrial fibrillation I48.0 [facility] [id number] [address]- 1375 May, [facility] [place] [address] [address]- 1929 Apr, Posttraumatic stress disorder 309.81 and Major depressive disorder, recurrent episode, moderate 296.32 [facility] [address] [address]- 0230 Apr, [facility] [id number] [address]- 8986 Mar, Major depressive disorder, recurrent episode, moderate 296.32 and Posttraumatic stress disorder 309.81 [facility] [id number] [address]- 6249 Feb, [facility] [address] [address]- 8919 Feb, [facility] [address] [address]- 5214 January, [facility] [address] [address]- 3959 January, [facility] [address] [address]- 2942 January, [facility] [address] [address]- 9226 Dec, [facility] [address] [address]- 6107 Dec, [facility] [address] 7428 Nov, [facility] [address] [address]- 1936 Nov, [facility] [address] [address]- 3242 Nov, [facility] [address] [address]- 2311 06 Nov, 2014 [facility] [place] [facility] [address] [id number] [place] [address]- 3163 Nov, 2014 [facility] [place] [facility] [address] [id number] [place] [address]- 3690 Nov, 2014 [facility] [place] [facility] [address] [facility] [id number] [place] [address]- 4118 Nov, 2014 [facility] [place] [facility] [address] [id number] [place] [address]- 3244 Nov, 2014 [facility] [place] [facility] [address] [id number] [place] [address]- 7519 Oct, 2014 [facility] [place] [facility] [address] [id number] [place] [address]- 1270 Oct, 2014 [facility] [place] [facility] [address] [facility] [id number] [place] [address]- 1976 16 Oct, 2014 [facility] [place] [facility] [address] [facility] [id number] [place] [address]- 1362 16 Oct, 2014 [facility] [place] [facility] [address] [facility] [id number] [place] [address]- 7645 16 Oct, 2014 [facility] [place] [facility] [address] [facility] [id number] [place] [address]- 3442 16 Oct, 2014 [facility] [place] [facility] [address] [facility] [id number] [place] [address]- 8066 Oct, 2014 [facility] [place] [facility] [address] [facility] [id number] [place] [address]- 3914 06 Oct, 2014 [facility] [place] [facility] [address] [facility] [id number] [place] [address]- 5072 06 Oct, 2014 [facility] [place] [facility] [address] [facility] [id number] [place] [address]- 2338 06 Oct, 2014 [facility] [place] [facility] [address] [facility] [id number] [place] [address]- 2426 Oct, 2014 [facility] [place] [facility] [address] [id number] [place] 0976 Oct, 2014 [facility] [place] [facility] [address] [id number] [place] [address]- 1993 Oct, 2014 [facility] [place] [facility] [address] [id number] [place] 7960 Oct, 2014 [facility] [place] [facility] [address] [id number] [place] [address]- 0400 Oct, 2014 [facility] [place] [facility] [address] [id number] [place] [address]- 7511 Oct, [facility] [place] [facility] [address] [facility] [id number] [place] [address]- 8831 Sep, [facility] [place] [facility] [address] [facility] [id number] [place] [address]- 3311 Sep, [facility] [place] [facility] [address] [id number] [place] [address]- 6268 Sep, [facility] [place] [facility] [address] [facility] [id number] [place] [address]- 9253 Sep, [facility] [place] [facility] [address] [facility] [id number] [place] [address]- 0475 Aug, [facility] [place] [facility] [address] [facility] [id number] [place] [address]- 6564 Aug, [facility] [place] [facility] [address] [id number] [place] [address]- 1316 Aug, [facility] [place] [facility] [address] [id number] [place] [address]- 4351 Aug, [facility] [place] [facility] [address] [facility] [id number] [place] [address]- 1848 Aug, [facility] [place] [facility] [address] [facility] [id number] [place] 8005 Aug, [facility] [place] [facility] [address] [id number] [place] [address]- 3319 Aug, [facility] [place] [facility] [address] [id number] [place] 3983 Aug, [facility] [place] [facility] [address] [id number] [place] 7059 Aug, [facility] [place] [facility] [address] [id number] [place] 2364 Aug, [facility] [place] [facility] [address] [id number] [place] [address]- 9169 Aug, [facility] [place] [facility] [address] [id number] [place] [address]- 3665 Aug, [facility] [place] [facility] [address] [id number] [place] [address]- 0138 Aug, [facility] [place] [facility] [address] [id number] [place] [address]- 4748 Aug, [facility] [place] [facility] [address] [id number] [place] [address]- 1700 Aug, [facility] [place] [facility] [address] [id number] [place] [address]- 3084 Aug, [facility] [place] [facility] [address] [id number] [place] [address]- 8525 Jul, [facility] [place] [facility] [address] [id number] [place] [address]- 2225 Jul, [facility] [place] [facility] [address] [id number] [place] [address]- 8514 Jul, [facility] [place] [facility] [address] [id number] [place] 9035 Jul, [facility] [place] [facility] [address] [id number] [place] [address]- 1877 Jul, [facility] [place] [facility] [address] [id number] [place] [address]- 3058 Jul, [facility] [place] [facility] [address] [id number] [place] [address]- 8552 Jun, [facility] [place] [facility] [address] [id number] [place] [address]- 9794 Jun, [facility] [place] [facility] [address] [id number] [place] [address]- 9730 Jun, [facility] [place] [facility] [address] [id number] [place] [address]- 1421 Jun, [facility] [place] [facility] [address] [id number] [place] [address]- 5486 Jun, [facility] [place] [facility] [address] [id number] [place] [address]- 9220 Jun, [facility] [place] [facility] [address] [id number] [place] [address]- 8223 Jun, [facility] [place] [facility] [address] [id number] [address]- 0894 Jun, [facility] [place] [facility] [address] [id number] [place] [address]- 4968 Jun, [facility] [place] [facility] [address] [id number] [address]- 0023 Jun, [facility] [place] [facility] [address] [id number], [place] [address]- 2037 Jun, [facility] [place] [facility] [address] [id number], [place] [address]- 3361 Jun, [facility] [place] [facility] [address] [id number], [place] [address]- 6742 Jun, [facility] [place] [facility] [address] [id number] [place] [address]- 3376 Jun, [facility] [place] [facility] [address] [id number], [place] [address]- 3888 16 May, 2014 [facility] [place] [facility] [address] [id number], [place] [address]- 7516 May, [facility] [place] [facility] [address] [id number] [place] [address]- 5341 May, [facility] [place] [facility] [address] [id number] [place] [address]- 6676 May, [facility] [place] [facility] [address] [id number] [place] [address]- 4137 Apr, [facility] [place] [facility] [address] [id number] [place] [address]- 0631 Apr, [facility] [place] [facility] [address] [id number] [place] [address]- 7127 Apr, [facility] [place] [facility] [address] [id number] [place] [address]- 8702 Apr, [facility] [place] [facility] [address] [id number] [place] [address]- 4039 Mar, [facility] [place] [facility] [address] [id number] [place] [address]- 2870 Mar, [facility] [place] [facility] [address] [id number] [place] [address]- 2698 Mar, [facility] [place] [facility] [address] [id number] [place] [address]- 1696 Mar, [facility] [place] [facility] [address] [id number] [place] [address]- 6425 Mar, [facility] [place] [facility] [address] [id number] [place] [address]- 7400 Mar, [facility] [place] [facility] [address] [id number] [place] [address]- 6355 Mar, [facility] [place] [facility] [address] [id number] [place] [address]- 2781 Mar, [facility] [place] [facility] [address] [id number] [place] [address]- 8854 Mar, [facility] [place] [facility] [address] [id number] [place] [address]- 9604 Mar, [facility] [place] [facility] [address] [id number] [place] [address]- 1372 Mar, [facility] [place] [facility] [address] [id number] [place] [address]- 7531 Mar, [facility] [place] [facility] [address] [id number] [place] [address]- 9178 Feb, [facility] [place] [facility] [address] [id number] [place] [address]- 3099 Feb, [facility] [place] [facility] [address] [id number] [place] [address]- 6597 Feb, [facility] [place] [facility] [address] [id number] [place] [address]- 2872 Feb, [facility] [place] [facility] [address] [id number] [place] [address]- 2166 Feb, [facility] [place] [facility] [address] [id number] [place] [address]- 3693 Feb, [facility] [place] [facility] [address] [id number] [place] [address]- 9116 January, [facility] [place] [facility] [address] [id number] [place] [address]- 6425 January, [facility] [place] [facility] [address] [id number] [place] [address]- 9422 January, [facility] [place] [facility] [address] [id number] [place] [address]- 1379 January, [facility] [place] [facility] [address] [id number] [place] [address]- 1811 January, [facility] [place] [facility] [address] [id number] [place] [address]- 9509 January, [facility] [place] [facility] [address] [id number] [place] [address]- 4487 Nov, [facility] [place] [facility] [address] [id number] [place] [address]- 4762 Nov, [facility] [place] [facility] [address] [id number] [place] [address]- 2570 Nov, [facility] [place] [facility] [address] [id number] [place] [address]- 7757 Nov, [facility] [place] [facility] [address] [id number] [place] [address]- 4835 Oct, [facility] [place] [facility] [address] [id number] [place] [address]- 1453 Oct, [facility] [place] [facility] [address] [id number] [place] [address]- 0680 Sep, [facility] [place] [facility] [address] [id number] [place] [address] Sep, [facility] [place] [facility] [address] [id number] [place] [address] Sep, [facility] [place] [facility] [address] [id number] [place] [address] Sep, [facility] [place] [facility] [address] [id number] [place] [address] Sep, [facility] [place] [facility] [address] [id number] [place] [address] Aug, [facility] [place] [facility] [address] [id number] [place] [address] Aug, [facility] [place] [facility] [address] [id number] [place] [address] Jul, [facility] [place] [facility] [address] [id number] [place] [address] Jul, [facility] [place] [facility] [address] [id number] [place] [address] Jul, [facility] [place] [facility] [address] [id number] [place] [address] Jun, [facility] [address] [id number] [place] [address] Jun, [facility] [place] [facility] [address] [id number] [place] [address] Jun, [facility] [address] [id number] [place] [address] Jun, [facility] [place] [facility] [address] [id number] [place] [address] Apr, [facility] [address] [id number] [place] [address] Mar, [facility] [place] [facility] [address] [id number] [place] [address] Mar, [facility] [address] [id number] [place] [address] January, [facility] [address] [id number] [place] [address] Dec, [facility] [place] [facility] [address] [id number] [place] [address] Dec, [facility] [address] [id number] [place] [address] Nov, [facility] [place] [facility] [address] [id number] [place] [address] Nov, [facility] [place] [facility] [address] [id number] [place] [address] Nov, [facility] [place] [facility] [address] [id number] [place] [address] 2012 [facility] [place] [facility] [address] [id number] [place] [address] 07 Nov, 2012 [facility] [place] [facility] [address] [id number] [place] [address] Nov, [facility] [place] [facility] [address] [id number] [place] [address] Oct, [facility] [place] [facility] [address] [id number] [place] [address] Sep, [facility] [place] [facility] [address] [id number] [place] [address] Aug, [facility] [place] [facility] [address] [id number] [place] [address] Aug, [facility] [place] [facility] [address] [id number] [place] [address] Aug, [facility] [place] [facility] [address] [id number] [place] [address] Aug, [facility] [place] [facility] [address] [facility] [id number] [place] [address] Jul, [facility] [place] [facility] [address] [id number] [place] [address] Jul, [facility] [place] [facility] [address] [id number] [place] [address] Jun, [facility] [place] [facility] [address] [id number] [place] [address] Jun, [facility] [place] [facility] [address] [facility] [id number] [place] [address] Jun, [facility] [place] [facility] [address] [id number] [address] 18 Jun, 2012 [facility] [place] [facility] [address] [id number] [place] [address] 21 May, 2012 [facility] [place] [facility] [address] [id number] [place] [address] 18 May, 2012 [facility] [place] [facility] [address] [id number] [address] 14 May, 2012 [facility] [place] [facility] [address] [id number], [place] [address] 10 May, 2012 [facility] [place] [facility] [address] [id number] [place] [address] May, [facility] [place] [facility] [address] [id number] [place] [address] Apr, [facility] [place] [facility] [address] [id number] [place] [address] Apr, [facility] [place] [facility] [address] [id number] [place] [address] Mar, [facility] [place] [facility] [address] [id number] [place] [address] Mar, [facility] [place] [facility] [address] [id number] [place] [address] Mar, [facility] [place] [facility] [address] [id number] [place] [address] Feb, [facility] [place] [facility] [address] [id number] [place] [address] January, [facility] [place] [facility] [address] [id number] [place] [address] Nov, [facility] [place] [facility] [address] [id number] [place] [address] Nov, [facility] [place] [facility] [address] [id number] [place] [address] Nov, [facility] [place] [facility] [address] [id number] [place] [address] Nov, [facility] [place] [facility] [address] [id number] [place] [address] Nov, [facility] [place] [facility] [address] [id number] [place] [address] Oct, [facility] [place] [facility] [address] [id number] [place] [address] Oct, [facility] [place] [facility] [address] [id number] [place] [address]31 21 Oct, 2011 [facility] [address] [id number] [place] [address] 13 Oct, 2011 [facility] [place] [facility] [address] [id number] [place] [address] 10 Oct, 2011 [facility] [address] [id number] [place] [address] Sep, [facility] [place] [facility] [address] [id number] [place] [address] Sep, [facility] [place] [facility] [address] [id number] [place] [address] Sep, [facility] [address] [id number] [place] [address] Sep, [facility] [address] [id number] [place] [address] Sep, [facility] [address] [id number] [place] [address] Sep, [facility] [address] [id number] [place] [address] Sep, [facility] [address] [id number] [place] [address] Aug, [facility] [address] [id number] [place] [address] Aug, [facility] [place] [facility] [address] [id number] [place] [address] Aug, [facility] [place] [facility] [address] [id number] [place] [address] Aug, [facility] [place] [facility] [address] [id number] [place] [address] Aug, [facility] [place] [facility] [address] [id number], [place] [address] 06 Aug, 2011 [facility] [place] [facility] [address] [id number] [place] [address] 25 Jun, 2011 [facility] [place] [facility] [address] [id number] [place] [address] 20 Jun, 2011 [facility] [place] [facility] [address] [id number] [place] [address] 47[address] 14 Jun, 2011 [facility] [place] [facility] [address] [id number] [place] [address] 14 Jun, 2011 [facility] [place] [facility] [address] [id number] [place] [address] 16 Apr, 2011 [facility] [place] [facility] [address] [id number] [place] [address] Mar, [facility] [place] [facility] [address] [id number] [place] [address] Feb, [facility] [place] [facility] [address] [id number] [place] [address] Sep, [facility] [place] [facility] [address] [id number] [place] [address] Aug, [facility] [place] [facility] [address] [id number] [place] [address] Aug, [facility] [place] [facility] [address] [id number], [place] [address] Jul, [facility] [place] [facility] [address] [id number], [place] [address] Jul, [facility] [place] [facility] [address] [id number] [place] [address] Jul, [facility] [place] [facility] [address] [id number] [place] [address] Jun, [facility] [place] [facility] [address] [id number] [place] [address] Apr, [facility] [place] [facility] [address] [facility] [id number], [place] [address] 17 Oct, 2009 [facility] [address] [id number], [place] [address] Aug, [facility] [address] [id number], [place] [address] Jun, [facility] [address] [id number], [place] [address] Feb, [facility] [address] [id number] [address] Aug, [facility] [address] [id number], [place] [address] Jun, [facility] [address] [id number] [address] Jun, IMMUNIZATIONS No Known Immunizations SOCIAL HISTORY Never Assessed REASON FOR VISIT Controlled Med Refill PLAN OF CARE VITAL SIGNS MEDICATIONS Unknown [...]
--- OUTSIDE RECORDS SUMMARY | 2018-11-24 04:44 | XMS REPORT ---
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
--- OUTSIDE RECORDS SUMMARY | 2018-11-24 04:44 | XMS REPORT ---
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
--- OUTSIDE RECORDS SUMMARY | 2018-11-24 04:44 | XMS REPORT ---
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
--- OUTSIDE RECORDS SUMMARY | 2018-11-24 04:44 | XMS REPORT ---
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 Active 01006831 Problem Chronic pain syndrome G89.4 Active 57271217 Problem Portal vein thrombosis I81 Active 07361551 Problem Chronic hepatitis C without hepatic coma B18.2 Active 187979854 Problem Elevated platelet count D47.3 Active 006631005 Problem Other chronic pain G89.29 Active 32595988 Problem Major depressive disorder, recurrent, moderate F33.1 Active 96030141 Problem Urinary hesitancy R39.11 Active 1836220 Problem Gastroesophageal reflux disease, esophagitis presence not specified K21.9 Active 993230767 ALLERGIES No Information ENCOUNTERS Encounter Location Date Diagnosis [facility] [id number] [place] [address] 79337- 8729 Sep, Chronic pain syndrome G89.4 [facility] [address] [address] 15[address] Sep, [facility] [id number] [place] [address] 64770- 1433 Sep, [facility] [id number] [place] [address] 05006- 4392 Sep, [facility] [id number] [place] [address] 64133- 2857 Sep, [facility] [id number] [place] [address] 42893- 1393 Sep, [facility] [id number] [place] [address] 87822- 7230 Sep, [facility] [id number] [place] [address] 24119- 4736 Aug, [facility] [id number] [place] [address] 62426- 0982 Aug, Portal vein thrombosis I81 ; Chronic pain syndrome G89.4 ; Other acute pulmonary embolism without acute cor pulmonale I26.99 and Chronic hepatitis C without hepatic coma B18.2 [facility] [id number] [place] [address] 12188- 4406 Aug, [facility] [id number] [place] [address] 06867- 6937 Aug, [facility] [id number] [place] [address] 55387- 3546 Jul, Major depressive disorder, recurrent, moderate F33.1 and Posttraumatic stress disorder F43.10 [facility] [id number] [place] [address] 78452- 5930 Jul, Gastroesophageal reflux disease, esophagitis presence not specified K21.9 [facility] [id number] [place] [address] 22867- 7625 Jun, [facility] [id number] [place] [address] 32585- 8871 Jun, [facility] [id number] [place] [address] 98225- 6333 Jun, Posttraumatic stress disorder F43.10 and 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 [facility] [id number] [place] [address] 78110- 8599 Apr, [facility] [id number] [place] [address] 87768- 5939 Apr, Mass of sinus R22.0 ; 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 and Elevated platelet count D47.3 [facility] [id number] [place] [address] 33177- 6970 Apr, 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 and Posttraumatic stress disorder F43.10 [facility] [id number] [place] [address] 55912- 0819 January, [facility] [id number] [place] [address] 29284- 0755 January, Posttraumatic stress disorder F43.10 and 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 [facility] [id number] [place] [address] 79579- 7778 Dec, 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 and Elevated platelet count D47.3 [facility] [id number] [place] [address] 22489- 2649 Dec, [facility] [id number] [place] [address] 83501- 2333 Dec, Low energy R53.83 ; 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 ; Gastroesophageal reflux disease, esophagitis presence not specified K21.9 and Urinary hesitancy R39.11 [place] [id number] [place] [address] 60444- 3609 Dec, Posttraumatic stress disorder F43.10 and 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 [facility] [id number] [place] [address] 83369- 5369 Oct, [facility] [id number] [place] [address] 12587- 4404 Sep, Mass of sinus R22.0 [facility] [id number] [place] [address] 12887- 0029 Sep, Dysuria R30.0 ; Low back pain M54.5 ; Other chronic pain G89.29 ; Poor nutrition E63.9 ; Gastroesophageal reflux disease, esophagitis presence not specified K21.9 and Mass of sinus R22.0 [facility] [id number] [place] [address] 53643- 6608 Sep, Posttraumatic stress disorder F43.10 and 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 [facility] [address] 01764- 1518 Sep, [facility] [address] 67731- 8547 Aug, [facility] [address] 97458- 6382 Aug, Encounter for immunization Z23 [facility] [address] 00995- 1605 Jul, Posttraumatic stress disorder F43.10 ; 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 and Major depressive disorder, recurrent, moderate F33.1 [facility] [id number] [place] [address] 24866- 3064 Jun, [facility] [id number] [place] [address] 64091- 2256 Jun, [facility] [id number] [place] [address] 60999- 0321 May, [facility] [id number] [place] [address] 44820- 7203 Apr, [facility] [id number] [place] [address] 72798- 4940 Apr, Posttraumatic stress disorder F43.10 and 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 [facility] [id number] [place] [address] 57491- 3581 Mar, [facility] [address] 41293- 6532 Feb, [facility] [address] [address]- 7182 January, [facility] [id number] [place] [address] 93086- 9456 January, Posttraumatic stress disorder F43.10 and 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 [facility] [id number] [place] [address] 66155- 4310 Dec, [facility] [id number] [place] [address] 33728- 6070 Nov, [facility] [id number] [place] [address] 42713- 0050 Nov, [facility] [id number] [place] [address] 50520- 5158 Oct, Posttraumatic stress disorder F43.10 and 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 [facility] [id number] [place] [address] 40811- 6910 Sep, Encounter for immunization Z23 ; Posttraumatic stress disorder F43.10 and 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 [facility] [id number] [place] [address] 06125- 4504 Aug, [facility] [address] [address]- 4552 Aug, [facility] [id number] [place] [address] 42826- 9728 Jul, Encounter for immunization Z23 ; Posttraumatic stress disorder F43.10 and 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 [facility] [id number] [place] [address] 22330- 6738 Jun, [facility] [id number] [place] [address] 12910- 9335 Jun, Mass of sinus R22.0 ; Low back pain M54.5 and Paroxysmal atrial fibrillation I48.0 [facility] [address] [facility] [id number] [address] 3007 May, [facility] [id number] [place] [address] 212492- 6554 Apr, Posttraumatic stress disorder 309.81 and Major depressive disorder, recurrent episode, moderate 296.32 [facility] [id number] [place] [address] 16959- 8598 Apr, [facility] [address] [facility] [id number] 4938 Mar, Major depressive disorder, recurrent episode, moderate 296.32 and Posttraumatic stress disorder 309.81 [facility] [id number] [place] [address] 680104- 1837 Feb, [facility] [address], [place] [address]- 1078 Feb, [facility] [id number] [address]- 6952 January, [facility] [address] [address]- 0769 January, [facility] [address] 5441 January, [facility] [address] [address]- 7241 Dec, [facility] [address] [address]- 5360 Dec, [facility] [address] 1518 Nov, [facility] [address] 1847 Nov, [facility] [address] [address]- 5411 Nov, [facility] [id number] [place] [address] [place] [address]- 3064 06 Nov, 2014 [facility] [place] [facility] [address] [id number] [place] [address]- 6378 Nov, 2014 [facility] [place] [facility] [address] [id number] [place] [address]- 1755 Nov, 2014 [facility] [place] [facility] [address] [id number] [place] [address]- 3981 Nov, 2014 [facility] [place] [facility] [address] [id number] [place] [address]- 8780 Nov, 2014 [facility] [place] [facility] [address] [id number] [place] [address]- 9055 Oct, 2014 [facility] [place] [facility] [address] [id number] [place] [address]- 6478 Oct, 2014 [facility] [place] [facility] [address] [id number] [place] [address]- 5728 16 Oct, 2014 [facility] [place] [facility] [address] [id number] [place] [address]- 0793 16 Oct, 2014 [facility] [place] [facility] [address] [id number] [place] [address]- 2147 16 Oct, 2014 [facility] [place] [facility] [address] [id number] [place] [address]- 2734 16 Oct, 2014 [facility] [place] [facility] [address] [id number] [place] [address]- 1012 Oct, 2014 [facility] [place] [facility] [address] [id number] [place] [address]- 0234 Oct, 2014 [facility] [place] [facility] [address] [id number] [place] [address]- 3010 Oct, 2014 [facility] [place] [facility] [address] [id number] [place] [address]- 4641 06 Oct, 2014 [facility] [place] [facility] [address] [id number] [place] [address]- 5436 Oct, 2014 [facility] [place] [facility] [address] [id number] [place] [address]- 1315 Oct, 2014 [facility] [place] [facility] [address] [id number] [place] [address]- 9948 Oct, 2014 [facility] [place] [facility] [address] [id number] [place] [address]- 7515 Oct, 2014 [facility] [place] [facility] [address] [id number] [place] [address]- 6232 Oct, 2014 [facility] [place] [facility] [address] [id number] [place] [address]- 4038 Oct, 2014 [facility] [place] [facility] [address] [id number] [place] [address]- 1603 Sep, [facility] [place] [facility] [address] [facility] [id number] [place] [address]- 2966 Sep, [facility] [place] [facility] [address] [id number] [place] [address]- 3685 Sep, [facility] [place] [facility] [address] [id number] [place] [address]- 6918 Sep, [facility] [place] [facility] [address] [facility] [id number] [place] [address]- 4693 Aug, [facility] [place] [facility] [address] [id number] [place] [address]- 1891 Aug, [facility] [place] [facility] [address] [id number] [place] [address]- 8679 Aug, [facility] [place] [facility] [address] [id number] [place] [address]- 0967 Aug, [facility] [place] [facility] [address] [id number] [place] [address]- 4497 Aug, [facility] [place] [facility] [address] [facility] [id number] [place] [address]- 7551 Aug, [facility] [place] [facility] [address] [id number] [place] [address]- 8242 Aug, [facility] [place] [facility] [address] [id number] [place] 6097 Aug, [facility] [place] [facility] [address] [id number] [place] 1161 Aug, [facility] [place] [facility] [address] [id number] [place] 3890 Aug, [facility] [place] [facility] [address] [id number] [place] [address]- 4716 Aug, [facility] [place] [facility] [address] [id number] [place] 4334 Aug, [facility] [place] [facility] [address] [id number] [place] [address]- 0554 Aug, [facility] [place] [facility] [address] [id number] [place] [address]- 9804 Aug, [facility] [place] [facility] [address] [id number] [place] [address]- 3326 Aug, [facility] [place] [facility] [address] [id number] [place] [address]- 9410 Aug, [facility] [place] [facility] [address] [id number] [place] [address]- 9851 Jul, [facility] [place] [facility] [address] [id number] [place] [address]- 4693 Jul, [facility] [place] [facility] [address] [id number] [place] [address]- 8567 Jul, [facility] [place] [facility] [address] [id number] [place] [address]- 7094 Jul, [facility] [place] [facility] [address] [id number] [place] [address]- 2844 Jul, [facility] [place] [facility] [address] [id number] [place] [address]- 4929 Jul, [facility] [place] [facility] [address] [id number] [place] [address]- 2733 Jun, [facility] [place] [facility] [address] [id number] [place] [address]- 1715 Jun, [facility] [place] [facility] [address] [id number] [place] [address]- 9359 Jun, [facility] [place] [facility] [address] [id number] [place] [address]- 5407 Jun, [facility] [place] [facility] [address] [id number] [place] [address]- 0601 Jun, [facility] [place] [facility] [address] [id number] [place] [address]- 3419 Jun, [facility] [place] [facility] [address] [id number] [place] [address]- 3509 Jun, [facility] [place] [facility] [address] [id number] [place] [address]- 4531 Jun, [facility] [place] [facility] [address] [id number] [place] [address]- 9389 Jun, [facility] [place] [facility] [address] [id number] [place] [address]- 9310 Jun, [facility] [place] [facility] [address] [id number], [place] [address]- 4262 Jun, [facility] [place] [facility] [address] [id number], [place] [address]- 6058 Jun, [facility] [place] [facility] [address] [id number] [place] [address]- 9244 Jun, [facility] [place] [facility] [address] [id number] [place] [address]- 7185 Jun, [facility] [place] [facility] [address] [id number] [place] 1658 16 May, 2014 [facility] [place] [facility] [address] [id number] [place] [address]- 7092 May, [facility] [place] [facility] [address] [id number] [place] [address]- 7435 May, [facility] [place] [facility] [address] [id number] [place] [address]- 3531 May, [facility] [place] [facility] [address] [id number] [place] [address]- 1506 Apr, [facility] [place] [facility] [address] [id number] [place] [address]- 1124 Apr, [facility] [place] [facility] [address] [id number] [place] [address]- 7915 Apr, [facility] [place] [facility] [address] [id number] [place] [address]- 2414 Apr, [facility] [place] [facility] [address] [id number] [place] [address]- 7436 Mar, [facility] [place] [facility] [address] [id number] [place] [address]- 3239 Mar, [facility] [place] [facility] [address] [id number] [place] [address]- 0411 Mar, [facility] [place] [facility] [address] [id number] [place] [address]- 1120 Mar, [facility] [place] [facility] [address] [id number] [place] [address]- 5410 Mar, [facility] [place] [facility] [address] [id number] [place] [address]- 4160 Mar, [facility] [place] [facility] [address] [id number] [place] [address]- 9322 Mar, [facility] [place] [facility] [address] [id number] [place] [address]- 8438 Mar, [facility] [place] [facility] [address] [id number] [place] [address]- 9768 Mar, [facility] [place] [facility] [address] [id number] [place] [address]- 5350 Mar, [facility] [place] [facility] [address] [id number] [place] [address]- 7625 Mar, [facility] [place] [facility] [address] [id number] [place] [address]- 4973 Mar, [facility] [place] [facility] [address] [id number] [place] [address]- 3237 Feb, [facility] [place] [facility] [address] [id number] [place] [address]- 9887 Feb, [facility] [place] [facility] [address] [id number] [place] [address]- 9476 Feb, [facility] [place] [facility] [address] [id number] [place] [address]- 5789 Feb, [facility] [place] [facility] [address] [id number] [place] [address]- 8095 Feb, [facility] [place] [facility] [address] [id number] [place] [address]- 5144 Feb, [facility] [place] [facility] [address] [id number] [place] [address]- 9933 January, [facility] [place] [facility] [address] [id number] [place] [address]- 6712 January, [facility] [place] [facility] [address] [id number] [place] [address]- 2935 January, [facility] [place] [facility] [address] [id number] [place] [address]- 0965 January, [facility] [place] [facility] [address] [id number] [place] [address]- 0029 January, [facility] [place] [facility] [address] [id number] [place] [address]- 6361 January, [facility] [place] [facility] [address] [id number] [place] [address]- 9845 Nov, [facility] [place] [facility] [address] [id number] [place] [address]- 9757 Nov, [facility] [place] [facility] [address] [id number] [place] [address]- 0189 Nov, [facility] [place] [facility] [address] [id number] [place] [address]- 3565 Nov, [facility] [place] [facility] [address] [id number] [place] [address]- 3904 Oct, [facility] [place] [facility] [address] [id number] [place] [address]- 1982 Oct, [facility] [place] [facility] [address] [id number] [place] [address]- 8364 Sep, [facility] [place] [facility] [address] [id number] [place] [address]- 7492 Sep, [facility] [place] [facility] [address] [id number] [place] [address]- 6762 Sep, [facility] [place] [facility] [address] [id number] [place] [address]- 4193 Sep, [facility] [place] [facility] [address] [id number] [place] [address]- 7689 Sep, [facility] [place] [facility] [address] [id number], [place] [address]- 1583 Aug, [facility] [place] [facility] [address] [id number], [place] [address]- 3120 Aug, [facility] [place] [facility] [address] [id number] [place] [address]- 8315 Jul, [facility] [place] [facility] [address] [id number] [place] [address] Jul, [facility] [place] [facility] [address] [id number] [place] [address] Jul, [facility] [place] [facility] [address] [id number] [place] [address] Jun, [facility] [address] [id number] [place] [address] Jun, [facility] [address] [id number] [place] [address] Jun, [facility] [address] [id number] [place] [address] Jun, [facility] [address] [id number] [place] [address] Apr, [facility] [address] [id number] [place] [address] Mar, [facility] [address] [id number] [place] [address] Mar, [facility] [address] [id number] [place] [address] January, [facility] [address] [id number] [place] [address] Dec, [facility] [address] [id number] [place] [address] Dec, [facility] [address] [id number] [place] [address] Nov, [facility] [address] [id number] [place] [address] Nov, [facility] [address] [id number] [place] [address]- [address] Nov, [facility] [address] [id number] [place] [address] 2012 [facility] [address] [id number] [place] [address]- [address] Nov, [facility] [address] [id number] [place] [address] Nov, [facility] [place] [facility] [address] [id number] [place] [address] Oct, [facility] [place] [facility] [address] [id number] [place] [address] Sep, [facility] [place] [facility] [address] [id number] [place] [address] Aug, [facility] [place] [facility] [address] [id number] [place] [address]- [address] Aug, [facility] [place] [facility] [address] [id number] [place] [address]- [address] Aug, [facility] [place] [facility] [address] [id number] [place] [address]- [address] Aug, [facility] [place] [facility] [address] [facility] [id number] [place] [address] Jul, [facility] [place] [facility] [address] [id number], [place] [address] Jul, [facility] [place] [facility] [address] [id number] [place] [address] Jun, [facility] [place] [facility] [address] [facility] [id number], [place] [address] Jun, [facility] [place] [facility] [address] [facility] [id number], [place] [address] Jun, [facility] [place] [facility] [address] [id number], [place] [address] 18 Jun, 2012 [facility] [place] [facility] [address] [id number], [place] [address] 21 May, 2012 [facility] [place] [facility] [address] [id number], [place] [address] 18 May, 2012 [facility] [place] [facility] [address] [facility] [id number], [place] [address] 14 May, 2012 [facility] [place] [facility] [address] [id number], [place] [address] 10 May, 2012 [facility] [address] [id number] [place] [address]- [address] May, [facility] [place] [facility] [address] [id number] [place] [address]- [address] Apr, [facility] [place] [facility] [address] [id number] [place] [address]- [address] Apr, [facility] [place] [facility] [address] [id number] [place] [address]- [address] Mar, [facility] [place] [facility] [address] [id number] [place] [address] Mar, [facility] [place] [facility] [address] [id number] [place] [address] Mar, [facility] [address] [id number] [place] [address] Feb, [facility] [place] [facility] [address] [id number] [place] [address] January, [facility] [place] [facility] [address] [id number] [place] [address] Nov, [facility] [place] [facility] [address] [facility] [id number] [place] [address] Nov, [facility] [place] [facility] [address] [id number] [place] [address] Nov, [facility] [place] [facility] [address] [id number] [place] [address] Nov, [facility] [place] [facility] [address] [id number] [place] [address] Nov, [facility] [place] [facility] [address] [facility] [id number] [place] [address] Oct, [facility] [place] [facility] [address] [facility] [id number] [place] [address] Oct, [facility] [place] [facility] [address] [id number] [place] [address] Oct, [facility] [address] [id number] [place] [address] Oct, [facility] [address] [id number] [place] [address] Oct, [facility] [address] [id number] [place] [address] Sep, [facility] [address] [id number] [place] [address] Sep, [facility] [address] [id number] [place] [address] Sep, [facility] [address] [id number] [place] [address] Sep, [facility] [address] [id number] [place] [address] Sep, [facility] [address] [id number] [place] [address] Sep, [facility] [address] [id number] [place] [address] Sep, [facility] [address] [id number] [place] [address] Aug, [facility] [address] [id number] [place] [address] Aug, [facility] [address] [id number] [place] [address] Aug, [facility] [place] [facility] [address] [id number] [place] [address] Aug, [facility] [address] [id number] [place] [address] Aug, [facility] [address] [id number], [place] [address] 06 Aug, 2011 [facility] [place] [facility] [address] [id number] [place] [address] 25 Jun, 2011 [facility] [place] [facility] [address] [id number] [place] [address] 20 Jun, 2011 [facility] [place] [facility] [address] [id number] [place] [address] 14 Jun, 2011 [facility] [place] [facility] [address] [id number] [place] [address] 14 Jun, 2011 [facility] [place] [facility] [address] [id number] [place] [address] 16 Apr, 2011 [facility] [place] [facility] [address] [id number] [place] [address] Mar, [facility] [place] [facility] [address] [id number] [place] [address] Feb, [facility] [place] [facility] [address] [id number] [place] [address] Sep, [facility] [place] [facility] [address] [id number] [place] [address] Aug, [facility] [place] [facility] [address] [id number] [place] [address] Aug, [facility] [place] [facility] [address] [id number], [place] [address] Jul, [facility] [place] [facility] [address] [id number] [place] [address] Jul, [facility] [place] [facility] [address] [id number] [place] [address] Jul, [facility] [place] [facility] [address] [id number] [place] [address] Jun, [facility] [place] [facility] [address] [id number] [place] [address] Apr, [facility] [place] [facility] [address] [facility] [id number] [place] [address] 17 Oct, 2009 [facility] [address] [id number] [address] Aug, [facility] [address] [id number], [place] [address] Jun, [facility] [address] [id number], [place] [address] Feb, [facility] [address] [id number], [place] [address] Aug, [facility] [address] [id number], [place] [address] Jun, [facility] [address] [id number] [address] [address] Jun, IMMUNIZATIONS No Known Immunizations SOCIAL HISTORY Never Assessed REASON FOR VISIT Referral request PLAN OF CARE VITAL SIGNS MEDICATIONS Unknown [...]
--- OUTSIDE RECORDS SUMMARY | 2018-11-24 04:44 | XMS REPORT ---
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 Active 86111804 Problem Chronic pain syndrome G89.4 Active 82336400 Problem Portal vein thrombosis I81 Active 15234031 Problem Chronic hepatitis C without hepatic coma B18.2 Active 576071527 Problem Elevated platelet count D47.3 Active 481235687 Problem Other chronic pain G89.29 Active 57979765 Problem Major depressive disorder, recurrent, moderate F33.1 Active 48845469 Problem Urinary hesitancy R39.11 Active 2605129 Problem Gastroesophageal reflux disease, esophagitis presence not specified K21.9 Active 352358805 ALLERGIES No Information ENCOUNTERS Encounter Location Date Diagnosis [facility] [id number] [place] [address] 46881- 6233 Sep, Chronic pain syndrome G89.4 [facility] [address] [address] 6443 Sep, [facility] [id number] [place] [address] 37720- 3645 Sep, [facility] [id number] [place] [address] 83840- 4335 Sep, [facility] [id number] [place] [address] 04245- 2923 Sep, [facility] [id number] [place] [address] 11025- 9526 Sep, [facility] [id number] [place] [address] 33104- 8696 Sep, [facility] [id number] [place] [address] 95682- 5784 Aug, [facility] [id number] [place] [address] 23679- 1766 Aug, Portal vein thrombosis I81 ; Chronic pain syndrome G89.4 ; Other acute pulmonary embolism without acute cor pulmonale I26.99 and Chronic hepatitis C without hepatic coma B18.2 [facility] [id number] [place] [address] 82201- 4200 Aug, [facility] [id number] [place] [address] 10142- 4653 Aug, [facility] [id number] [place] [address] 40749- 4542 Jul, Major depressive disorder, recurrent, moderate F33.1 and Posttraumatic stress disorder F43.10 [facility] [id number] [place] [address] 98285- 2543 Jul, Gastroesophageal reflux disease, esophagitis presence not specified K21.9 [facility] [id number] [place] [address] 02741- 4191 Jun, [facility] [id number] [place] [address] 01054- 9405 Jun, [facility] [id number] [place] [address] 01015- 1277 Jun, Posttraumatic stress disorder F43.10 and 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 [facility] [id number] [place] [address] 96253- 7986 Apr, [facility] [id number] [place] [address] 89116- 7236 Apr, Mass of sinus R22.0 ; 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 and Elevated platelet count D47.3 [facility] [id number] [place] [address] 19770- 0580 Apr, 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 and Posttraumatic stress disorder F43.10 [facility] [id number] [place] [address] 95156- 3737 January, [facility] [id number] [place] [address] 31313- 7736 January, Posttraumatic stress disorder F43.10 and 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 [facility] [id number] [place] [address] 85257- 7008 Dec, 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 and Elevated platelet count D47.3 [facility] [id number] [place] [address] 52363- 7127 Dec, [facility] [id number] [place] [address] 47818- 6522 Dec, Low energy R53.83 ; 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 ; Gastroesophageal reflux disease, esophagitis presence not specified K21.9 and Urinary hesitancy R39.11 [facility] [id number] [place] [address] 00579- 0818 Dec, Posttraumatic stress disorder F43.10 and 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 [facility] [id number] [place] [address] 73874- 3344 Oct, [facility] [id number] [place] [address] 60233- 5686 Sep, Mass of sinus R22.0 [facility] [id number] [place] [address] 38183- 0696 Sep, Dysuria R30.0 ; Low back pain M54.5 ; Other chronic pain G89.29 ; Poor nutrition E63.9 ; Gastroesophageal reflux disease, esophagitis presence not specified K21.9 and Mass of sinus R22.0 [facility] [id number] [place] [address] 95074- 7790 Sep, Posttraumatic stress disorder F43.10 and 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 [facility] [address] 61736- 8149 Sep, [facility] [address] 44503- 6010 Aug, [facility] [address] 02710- 8153 Aug, Encounter for immunization Z23 [facility] [address] 44055- 3497 Jul, Posttraumatic stress disorder F43.10 ; 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 and Major depressive disorder, recurrent, moderate F33.1 [facility] [id number] [place] [address] 84058- 0916 Jun, [facility] [id number] [place] [address] 77158- 6825 Jun, [facility] [id number] [place] [address] 01913- 6529 May, [facility] [id number] [place] [address] 99250- 0425 Apr, [facility] [id number] [place] [address] 94811- 1235 Apr, Posttraumatic stress disorder F43.10 and 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 [facility] [id number] [place] [address] 70609- 8945 Mar, [facility] [address] 55742- 3347 Feb, [facility] [address] [address]- 8893 January, [facility] [id number] [place] [address] 63344- 7372 January, Posttraumatic stress disorder F43.10 and 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 [facility] [id number] [place] [address] 63297- 8933 Dec, [facility] [id number] [place] [address] 44761- 1130 Nov, [facility] [id number] [place] [address] 22050- 1794 Nov, [facility] [id number] [place] [address] 82813- 8855 Oct, Posttraumatic stress disorder F43.10 and 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 [facility] [id number] [place] [address] 82163- 5630 Sep, Encounter for immunization Z23 ; Posttraumatic stress disorder F43.10 and 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 [facility] [id number] [place] [address] 40734- 7328 Aug, [facility] [address] [address]- 3396 Aug, [facility] [id number] [place] [address] 51728- 2225 Jul, Encounter for immunization Z23 ; Posttraumatic stress disorder F43.10 and 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 [facility] [id number] [place] [address] 59793- 5182 Jun, [facility] [id number] [place] [address] 55626- 2415 Jun, Mass of sinus R22.0 ; Low back pain M54.5 and Paroxysmal atrial fibrillation I48.0 [facility] [address] [facility] [id number] [address]- 7330 May, [facility] [id number] [place] [address] 871238- 2875 Apr, Posttraumatic stress disorder 309.81 and Major depressive disorder, recurrent episode, moderate 296.32 [facility] [id number] [place] [address] 25838- 1356 Apr, [facility] [address] [facility] [id number] 0647 Mar, Major depressive disorder, recurrent episode, moderate 296.32 and Posttraumatic stress disorder 309.81 [facility] [id number] [place] [address] 575399- 8459 Feb, [facility] [address] [address]- 3889 Feb, [facility] [id number] [address]- 9493 January, [facility] [address] [address]- 8925 January, [facility] [address] 9261 January, [facility] [address] [address]- 0616 Dec, [facility] [address] [address]- 3263 Dec, [facility] [address] 0616 Nov, [facility] [address] 2841 Nov, [facility] [address] [address]- 9084 Nov, [facility] [id number] [place] [address] [place] [address]- 3262 06 Nov, 2014 [facility] [place] [facility] [address] [id number] [place] [address]- 4813 Nov, 2014 [facility] [place] [facility] [address] [id number] [place] [address]- 7176 Nov, 2014 [facility] [place] [facility] [address] [id number] [place] [address]- 9485 Nov, 2014 [facility] [place] [facility] [address] [id number] [place] [address]- 9644 Nov, 2014 [facility] [place] [facility] [address] [id number] [place] [address]- 6016 Oct, 2014 [facility] [place] [facility] [address] [id number] [place] [address]- 2640 Oct, 2014 [facility] [place] [facility] [address] [id number] [place] [address]- 1602 16 Oct, 2014 [facility] [place] [facility] [address] [id number] [place] [address]- 9120 16 Oct, 2014 [facility] [place] [facility] [address] [id number] [place] [address]- 5919 16 Oct, 2014 [facility] [place] [facility] [address] [id number] [place] [address]- 3559 16 Oct, 2014 [facility] [place] [facility] [address] [id number] [place] [address]- 5123 Oct, 2014 [facility] [place] [facility] [address] [id number] [place] [address]- 9363 Oct, 2014 [facility] [place] [facility] [address] [id number] [place] [address]- 8242 Oct, 2014 [facility] [place] [facility] [address] [id number] [place] [address]- 3246 06 Oct, 2014 [facility] [place] [facility] [address] [id number] [place] [address]- 9235 Oct, 2014 [facility] [place] [facility] [address] [id number] [place] [address]- 0654 Oct, 2014 [facility] [place] [facility] [address] [id number] [place] [address]- 6702 Oct, 2014 [facility] [place] [facility] [address] [id number] [place] [address]- 0947 Oct, 2014 [facility] [place] [facility] [address] [id number] [place] [address]- 0263 Oct, 2014 [facility] [place] [facility] [address] [id number] [place] [address]- 1329 Oct, 2014 [facility] [place] [facility] [address] [id number] [place] [address]- 0043 Sep, [facility] [place] [facility] [address] [facility] [id number] [place] [address]- 0942 Sep, [facility] [place] [facility] [address] [id number] [place] [address]- 1851 Sep, [facility] [place] [facility] [address] [id number] [place] [address]- 0909 Sep, [facility] [place] [facility] [address] [facility] [id number] [place] [address]- 2030 Aug, [facility] [place] [facility] [address] [id number] [place] [address]- 2315 Aug, [facility] [place] [facility] [address] [id number] [place] [address]- 2007 Aug, [facility] [place] [facility] [address] [id number] [place] [address]- 3070 Aug, [facility] [place] [facility] [address] [id number] [place] [address]- 4336 Aug, [facility] [place] [facility] [address] [facility] [id number] [place] [address]- 5982 Aug, [facility] [place] [facility] [address] [id number] [place] [address]- 4321 Aug, [facility] [place] [facility] [address] [id number] [place] 5991 Aug, [facility] [place] [facility] [address] [id number] [place] 6984 Aug, [facility] [place] [facility] [address] [id number] [place] 7056 Aug, [facility] [place] [facility] [address] [id number] [place] [address]- 6718 Aug, [facility] [place] [facility] [address] [id number] [place] 7653 Aug, [facility] [place] [facility] [address] [id number] [place] [address]- 1640 Aug, [facility] [place] [facility] [address] [id number] [place] [address]- 5730 Aug, [facility] [place] [facility] [address] [id number] [place] [address]- 5012 Aug, [facility] [place] [facility] [address] [id number] [place] [address]- 2343 Aug, [facility] [place] [facility] [address] [id number] [place] [address]- 7116 Jul, [facility] [place] [facility] [address] [id number] [place] [address]- 2125 Jul, [facility] [place] [facility] [address] [id number] [place] [address]- 8644 Jul, [facility] [place] [facility] [address] [id number] [place] [address]- 2806 Jul, [facility] [place] [facility] [address] [id number] [place] [address]- 0483 Jul, [facility] [place] [facility] [address] [id number] [place] [address]- 7031 Jul, [facility] [place] [facility] [address] [id number] [place] [address]- 1606 Jun, [facility] [place] [facility] [address] [id number] [place] [address]- 4921 Jun, [facility] [place] [facility] [address] [id number] [place] [address]- 5841 Jun, [facility] [place] [facility] [address] [id number] [place] [address]- 3211 Jun, [facility] [place] [facility] [address] [id number] [place] [address]- 5381 Jun, [facility] [place] [facility] [address] [id number] [place] [address]- 4410 Jun, [facility] [place] [facility] [address] [id number] [place] [address]- 1840 Jun, [facility] [place] [facility] [address] [id number] [place] [address]- 7276 Jun, [facility] [place] [facility] [address] [id number] [place] [address]- 4140 Jun, [facility] [place] [facility] [address] [id number] [place] [address]- 9431 Jun, [facility] [place] [facility] [address] [id number] [address]- 4297 Jun, [facility] [place] [facility] [address] [id number] [place] [address]- 4607 Jun, [facility] [place] [facility] [address] [id number] [place] [address]- 9849 Jun, [facility] [place] [facility] [address] [id number] [place] [address]- 9225 Jun, [facility] [place] [facility] [address] [id number] [place] 2477 16 May, 2014 [facility] [place] [facility] [address] [id number] [place] [address]- 9800 May, [facility] [place] [facility] [address] [id number] [place] [address]- 0608 May, [facility] [place] [facility] [address] [id number] [place] [address]- 2408 May, [facility] [place] [facility] [address] [id number] [place] [address]- 8896 Apr, [facility] [place] [facility] [address] [id number] [place] [address]- 2676 Apr, [facility] [place] [facility] [address] [id number] [place] [address]- 4056 Apr, [facility] [place] [facility] [address] [id number] [place] [address]- 9631 Apr, [facility] [place] [facility] [address] [id number] [place] [address]- 9240 Mar, [facility] [place] [facility] [address] [id number] [place] [address]- 1240 Mar, [facility] [place] [facility] [address] [id number] [place] [address]- 8137 Mar, [facility] [place] [facility] [address] [id number] [place] [address]- 2933 Mar, [facility] [place] [facility] [address] [id number] [place] [address]- 5994 Mar, [facility] [place] [facility] [address] [id number] [place] [address]- 1195 Mar, [facility] [place] [facility] [address] [id number] [place] [address]- 4646 Mar, [facility] [place] [facility] [address] [id number] [place] [address]- 0790 Mar, [facility] [place] [facility] [address] [id number] [place] [address]- 8182 Mar, [facility] [place] [facility] [address] [id number] [place] [address]- 2195 Mar, [facility] [place] [facility] [address] [id number] [place] [address]- 2797 Mar, [facility] [place] [facility] [address] [id number] [place] [address]- 6540 Mar, [facility] [place] [facility] [address] [id number] [place] [address]- 8217 Feb, [facility] [place] [facility] [address] [id number] [place] [address]- 2733 Feb, [facility] [place] [facility] [address] [id number] [place] [address]- 2399 Feb, [facility] [place] [facility] [address] [id number] [place] [address]- 5341 Feb, [facility] [place] [facility] [address] [id number] [place] [address]- 3926 Feb, [facility] [place] [facility] [address] [id number] [place] [address]- 7125 Feb, [facility] [place] [facility] [address] [id number] [place] [address]- 6364 January, [facility] [place] [facility] [address] [id number] [place] [address]- 3286 January, [facility] [place] [facility] [address] [id number] [place] [address]- 9221 January, [facility] [place] [facility] [address] [id number] [place] [address]- 2511 January, [facility] [place] [facility] [address] [id number] [place] [address]- 3603 January, [facility] [place] [facility] [address] [id number] [place] [address]- 2946 January, [facility] [place] [facility] [address] [id number] [place] [address]- 6104 Nov, [facility] [place] [facility] [address] [id number] [place] [address]- 2709 Nov, [facility] [place] [facility] [address] [id number] [place] [address]- 6175 Nov, [facility] [place] [facility] [address] [id number] [place] [address]- 0500 Nov, [facility] [place] [facility] [address] [id number] [place] [address]- 0381 Oct, [facility] [place] [facility] [address] [id number] [place] [address]- 6828 Oct, [facility] [place] [facility] [address] [id number] [place] [address]- 5147 Sep, [facility] [place] [facility] [address] [id number] [place] [address]- 0454 Sep, [facility] [place] [facility] [address] [id number] [place] [address]- 6802 Sep, [facility] [place] [facility] [address] [id number] [place] [address]- 0152 Sep, [facility] [place] [facility] [address] [id number] [place] [address]- 1705 Sep, [facility] [place] [facility] [address] [id number] [place] [address]- 0176 Aug, [facility] [place] [facility] [address] [id number] [place] [address]- 1181 Aug, [facility] [place] [facility] [address] [id number] [place] [address]- 8682 Jul, [facility] [place] [facility] [address] [id number] [place] [address]- 5398 Jul, [facility] [place] [facility] [address] [id number] [place] [address] Jul, [facility] [place] [facility] [address] [id number] [place] [address] Jun, [facility] [address] [id number] [place] [address] Jun, [facility] [address] [id number] [place] [address] Jun, [facility] [address] [id number] [place] [address] Jun, [facility] [address] [id number] [place] [address] Apr, [facility] [address] [id number] [place] [address] Mar, [facility] [address] [id number] [place] [address] Mar, [facility] [address] [id number] [place] [address] January, [facility] [address] [id number] [place] [address] Dec, [facility] [address] [id number] [place] [address] Dec, [facility] [address] [id number] [place] [address] Nov, [facility] [address] [id number] [place] [address] Nov, [facility] [address] [id number] [place] [address] Nov, [facility] [address] [id number] [place] [address] 2012 [facility] [address] [id number] [place] [address] Nov, [facility] [address] [id number] [place] [address] Nov, [facility] [place] [facility] [address] [id number] [place] [address] Oct, [facility] [place] [facility] [address] [id number] [place] [address] Sep, [facility] [place] [facility] [address] [id number] [place] [address] Aug, [facility] [place] [facility] [address] [id number] [place] [address] Aug, [facility] [place] [facility] [address] [id number] [place] [address] Aug, [facility] [place] [facility] [address] [id number] [place] [address] Aug, [facility] [place] [facility] [address] [facility] [id number] [place] [address] Jul, [facility] [place] [facility] [address] [id number] [place] [address] Jul, [facility] [place] [facility] [address] [id number] [place] [address] Jun, [facility] [place] [facility] [address] [facility] [id number] [place] [address] Jun, [facility] [place] [facility] [address] [facility] [id number] [place] [address] Jun, [facility] [place] [facility] [address] [id number] [place] [address] 18 Jun, 2012 [facility] [place] [facility] [address] [id number] [place] [address] 21 May, 2012 [facility] [place] [facility] [address] [id number] [place] [address] 18 May, 2012 [facility] [place] [facility] [address] [facility] [id number] [place] [address] 14 May, 2012 [facility] [place] [facility] [address] [id number] [place] [address] 10 May, 2012 [facility] [address] [id number] [place] [address] May, [facility] [place] [facility] [address] [id number] [place] [address] Apr, [facility] [place] [facility] [address] [id number] [place] [address] Apr, [facility] [place] [facility] [address] [id number] [place] [address] Mar, [facility] [place] [facility] [address] [id number] [place] [address] Mar, [facility] [place] [facility] [address] [id number] [place] [address] 25[address] Mar, [facility] [address] [id number] [place] [address] Feb, [facility] [place] [facility] [address] [id number] [place] [address] January, [facility] [place] [facility] [address] [id number] [place] [address]- [address] Nov, [facility] [place] [facility] [address] [facility] [id number] [place] [address] Nov, [facility] [place] [facility] [address] [id number] [place] [address] Nov, [facility] [place] [facility] [address] [id number] [place] [address] Nov, [facility] [place] [facility] [address] [id number] [place] [address] Nov, [facility] [place] [facility] [address] [facility] [id number] [place] [address] Oct, [facility] [place] [facility] [address] [facility] [id number] [place] [address] Oct, [facility] [place] [facility] [address] [id number] [place] [address] Oct, [facility] [address] [id number] [place] [address] Oct, [facility] [address] [id number] [place] [address] Oct, [facility] [address] [id number] [place] [address] Sep, [facility] [address] [id number] [place] [address] Sep, [facility] [address] [id number] [place] [address] Sep, [facility] [address] [id number] [place] [address] Sep, [facility] [address] [id number] [place] [address] Sep, [facility] [address] [id number] [place] [address] Sep, [facility] [address] [id number] [place] [address] Sep, [facility] [address] [id number] [place] [address] Aug, [facility] [address] [id number] [place] [address] Aug, [facility] [address] [id number] [place] [address] Aug, [facility] [place] [facility] [address] [id number] [place] [address] Aug, [facility] [address] [id number] [place] [address] Aug, [facility] [address] [id number] [address] 06 Aug, 2011 [facility] [place] [facility] [address] [id number] [place] [address] 25 Jun, 2011 [facility] [place] [facility] [address] [id number] [place] [address] 20 Jun, 2011 [facility] [place] [facility] [address] [id number] [place] [address] 14 Jun, 2011 [facility] [place] [facility] [address] [id number] [place] [address] 14 Jun, 2011 [facility] [place] [facility] [address] [id number] [place] [address] 16 Apr, 2011 [facility] [place] [facility] [address] [id number] [place] [address] Mar, [facility] [place] [facility] [address] [id number] [place] [address] Feb, [facility] [place] [facility] [address] [id number] [place] [address] Sep, [facility] [place] [facility] [address] [id number] [place] [address] Aug, [facility] [place] [facility] [address] [id number] [place] [address] Aug, [facility] [place] [facility] [address] [id number] [address] Jul, [facility] [place] [facility] [address] [id number] [place] [address] Jul, [facility] [place] [facility] [address] [id number] [place] [address] Jul, [facility] [place] [facility] [address] [id number] [place] [address] Jun, [facility] [place] [facility] [address] [id number] [place] [address] Apr, [facility] [place] [facility] [address] [facility] [id number] [place] [address] 17 Oct, 2009 [facility] [address] [id number] [address] Aug, [facility] [address] [id number] [address] Jun, [facility] [address] [id number] [address] Feb, [facility] [address] [id number] [address] Aug, [facility] [address] [id number] [address] Jun, [facility] [address] [id number] [address] [address] Jun, IMMUNIZATIONS No Known Immunizations SOCIAL HISTORY Never Assessed REASON FOR VISIT triage PLAN OF CARE VITAL SIGNS MEDICATIONS Unknown [...]
--- OUTSIDE RECORDS SUMMARY | 2018-11-24 04:45 | XMS REPORT ---
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
--- OUTSIDE RECORDS SUMMARY | 2018-11-24 04:45 | XMS REPORT ---
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 Active 40613543 Problem Chronic pain syndrome G89.4 Active 76580537 Problem Portal vein thrombosis I81 Active 03715555 Problem Chronic hepatitis C without hepatic coma B18.2 Active 722475588 Problem Elevated platelet count D47.3 Active 411895269 Problem Other chronic pain G89.29 Active 29949608 Problem Major depressive disorder, recurrent, moderate F33.1 Active 90922242 Problem Urinary hesitancy R39.11 Active 3630531 Problem Gastroesophageal reflux disease, esophagitis presence not specified K21.9 Active 227912561 ALLERGIES No Information ENCOUNTERS Encounter Location Date Diagnosis [facility] [id number] [address] Sep, Chronic pain syndrome G89.4 [facility] [address] [address] Sep, [facility] [address] [address] 1017 Sep, [facility] [address] [address] 5498 Sep, [facility] [address] [address] 7853 Sep, [facility] [id number] [place] [address] 46463- 3838 Sep, [facility] [id number] [place] [address] 88055- 9497 Sep, [facility] [id number] [place] [address] 07335- 6080 Aug, [facility] [id number] [place] [address] 88529- 6640 Aug, Portal vein thrombosis I81 ; Chronic pain syndrome G89.4 ; Other acute pulmonary embolism without acute cor pulmonale I26.99 and Chronic hepatitis C without hepatic coma B18.2 [facility] [id number] [place] [address] 21546- 6729 Aug, [facility] [id number] [place] [address] 78315- 1109 Aug, [facility] [id number] [place] [address] 39381- 5904 Jul, Major depressive disorder, recurrent, moderate F33.1 and Posttraumatic stress disorder F43.10 [facility] [id number] [place] [address] 28303- 3690 Jul, Gastroesophageal reflux disease, esophagitis presence not specified K21.9 [facility] [id number] [place] [address] 22990- 8899 Jun, [facility] [id number] [place] [address] 09707- 0399 Jun, [facility] [id number] [place] [address] 37864- 6024 Jun, Posttraumatic stress disorder F43.10 and 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 [facility] [id number] [place] [address] 71195- 1590 Apr, [facility] [id number] [place] [address] 65084- 9675 Apr, Mass of sinus R22.0 ; 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 and Elevated platelet count D47.3 [id number] [place] [address] 13247- 3428 Apr, 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 and Posttraumatic stress disorder F43.10 [address] [id number] [place] [address] 96454- 2126 January, [facility] [id number] [place] [address] 12433- 1517 January, Posttraumatic stress disorder F43.10 and 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 [facility] [id number] [place] [address] 19862- 7723 Dec, 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 and Elevated platelet count D47.3 [facility] [id number] [place] [address] 21281- 6425 Dec, [facility] [id number] [place] [address] 25249- 5878 Dec, Low energy R53.83 ; 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 ; Gastroesophageal reflux disease, esophagitis presence not specified K21.9 and Urinary hesitancy R39.11 [address] [facility] [id number] [place] [address] 93868- 4548 Dec, Posttraumatic stress disorder F43.10 and 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 [address] [facility] [id number] [place] [address] 94711- 2282 Oct, [address] [id number] [place] [address] 88110- 9603 Sep, Mass of sinus R22.0 [facility] [id number] [place] [address] 56186- 1109 Sep, Dysuria R30.0 ; Low back pain M54.5 ; Other chronic pain G89.29 ; Poor nutrition E63.9 ; Gastroesophageal reflux disease, esophagitis presence not specified K21.9 and Mass of sinus R22.0 [facility] [id number] [place] [address] 05640- 2351 Sep, Posttraumatic stress disorder F43.10 and 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 [facility] [id number] [place] [address] 45287- 7540 Sep, [facility] [id number] [place] [address] 23590- 8353 Aug, [facility] [address] 34479- 3979 Aug, Encounter for immunization Z23 [facility] [address] 17467- 2434 Jul, Posttraumatic stress disorder F43.10 ; 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 and Major depressive disorder, recurrent, moderate F33.1 [facility] [id number] [place] [address] 19044- 1151 Jun, [facility] [id number] [place] [address] 34805- 3019 Jun, [facility] [id number] [place] [address] 10822- 0544 May, [facility] [id number] [place] [address] 16657- 5731 Apr, [facility] [id number] [place] [address] 87735- 7368 Apr, Posttraumatic stress disorder F43.10 and 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 [facility] [id number] [place] [address] 28158- 6778 Mar, [facility] [id number] [place] [address] 29106- 4647 Feb, [facility] [address] [address]- 7609 January, [facility] [id number] [place] [address] 79605- 7291 January, Posttraumatic stress disorder F43.10 and 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 [facility] [id number] [place] [address] 85832- 3338 Dec, [facility] [id number] [place] [address] 95082- 6849 Nov, [facility] [id number] [place] [address] 82432- 1252 Nov, [facility] [id number] [place] [address] 07308- 5661 Oct, Posttraumatic stress disorder F43.10 and 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 [facility] [id number] [place] [address] 12896- 2124 Sep, Encounter for immunization Z23 ; Posttraumatic stress disorder F43.10 and 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 [facility] [id number] [place] [address] 51028- 4696 Aug, [facility] [address] [address]- 5982 Aug, [facility] [id number] [place] [address] 18250- 5693 Jul, Encounter for immunization Z23 ; Posttraumatic stress disorder F43.10 and 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 [facility] [id number] [place] [address] 48833- 6159 Jun, [facility] [id number] [place] [address] 84035- 8052 Jun, Mass of sinus R22.0 ; Low back pain M54.5 and Paroxysmal atrial fibrillation I48.0 [facility] [id number], [place] [address]- 2615 May, [facility] [address], [place] [address]- 0704 Apr, Posttraumatic stress disorder 309.81 and Major depressive disorder, recurrent episode, moderate 296.32 [facility] [address] [address]- 0458 Apr, [facility] [id number] [place] [address] 26587- 0220 Mar, Major depressive disorder, recurrent episode, moderate 296.32 and Posttraumatic stress disorder 309.81 [facility] [id number] [place] [address] 46918- 0492 Feb, [facility] [address], [place] [address]- 4653 Feb, [facility] [id number] [place] [address] 98280- 9690 January, [facility] [address] 4406 January, [facility] [address], [place] [address]- 2321 January, [facility] [address] 6174 Dec, [facility] [address] [address]- 9685 Dec, [facility] [address], [place] [address]- 3919 Nov, [facility] [id number] [address]- 9526 Nov, [facility] [address], [place] [address]- 3926 Nov, [facility] [address] [address]- 0385 Nov, 2014 [facility] [place] [facility] [address] [id number] [place] [address]- 8879 Nov, 2014 [facility] [place] [facility] [address] [id number] [place] [address]- 5549 Nov, 2014 [facility] [place] [facility] [address] [facility] [id number] [place] [address]- 7450 Nov, 2014 [facility] [place] [facility] [address] [id number] [place] [address]- 6902 Nov, 2014 [facility] [place] [facility] [address] [id number] [place] [address]- 4776 Oct, 2014 [facility] [place] [facility] [address] [id number] [place] [address]- 5375 Oct, 2014 [facility] [place] [facility] [address] [facility] [id number] [place] [address]- 3381 16 Oct, 2014 [facility] [place] [facility] [address] [facility] [id number] [place] [address]- 3619 Oct, 2014 [facility] [place] [facility] [address] [facility] [id number] [place] [address]- 5725 Oct, 2014 [facility] [place] [facility] [address] [facility] [id number] [place] [address]- 5657 Oct, 2014 [facility] [place] [facility] [address] [facility] [id number] [place] [address]- 1322 Oct, 2014 [facility] [place] [facility] [address] [facility] [id number] [place] [address]- 8697 Oct, 2014 [facility] [place] [facility] [address] [id number] [place] [address]- 6698 Oct, 2014 [facility] [place] [facility] [address] [facility] [id number] [address]- 4348 Oct, 2014 [facility] [place] [facility] [address] [facility] [id number] [place] [address]- 8036 Oct, 2014 [facility] [place] [facility] [address] [id number] [place] [address]- 6994 Oct, 2014 [facility] [place] [facility] [address] [id number] [place] [address]- 9757 Oct, 2014 [facility] [place] [facility] [address] [id number] [place] [address]- 8495 Oct, 2014 [facility] [place] [facility] [address] [id number] [place] [address]- 3331 Oct, 2014 [facility] [place] [facility] [address] [id number] [place] [address]- 5206 Oct, [facility] [place] [facility] [address] [id number] [place] [address]- 7895 Sep, [facility] [place] [facility] [address] [facility] [id number] [place] [address]- 2508 Sep, [facility] [place] [facility] [address] [id number] [place] [address]- 3126 Sep, [facility] [place] [facility] [address] [facility] [id number] [place] [address]- 2889 Sep, [facility] [place] [facility] [address] [facility] [id number] [place] [address]- 2212 Aug, [facility] [place] [facility] [address] [facility] [id number] [place] [address]- 3985 Aug, [facility] [place] [facility] [address] [id number] [address]- 6893 Aug, [facility] [place] [facility] [address] [id number] [place] [address]- 4028 Aug, [facility] [place] [facility] [address] [id number] [place] [address]- 6733 Aug, [facility] [place] [facility] [address] [facility] [id number] [place] [address]- 7662 Aug, [facility] [place] [facility] [address] [id number] [place] [address]- 2579 Aug, [facility] [place] [facility] [address] [id number] [place] 6379 Aug, [facility] [place] [facility] [address] [id number] [place] [address]- 1186 Aug, [facility] [place] [facility] [address] [id number] [place] 6289 Aug, [facility] [place] [facility] [address] [id number] [place] [address]- 2027 Aug, [facility] [place] [facility] [address] [id number] [place] [address]- 7206 Aug, [facility] [place] [facility] [address] [id number] [place] [address]- 0122 Aug, [facility] [place] [facility] [address] [id number] [place] [address]- 4874 Aug, [facility] [place] [facility] [address] [id number] [place] [address]- 0944 Aug, [facility] [place] [facility] [address] [id number] [place] [address]- 8865 Aug, [facility] [place] [facility] [address] [facility] [id number] [place] [address]- 2641 Jul, [facility] [place] [facility] [address] [id number] [place] [address]- 5774 Jul, [facility] [place] [facility] [address] [id number] [place] [address]- 3876 Jul, [facility] [place] [facility] [address] [id number] [place] [address]- 0489 Jul, [facility] [place] [facility] [address] [id number] [place] [address]- 1739 Jul, [facility] [place] [facility] [address] [id number] [place] [address]- 1052 Jul, [facility] [place] [facility] [address] [id number] [place] [address]- 2762 Jun, 2013 [facility] [place] [facility] [address] [id number] [place] [address]- 1178 Jun, [facility] [place] [facility] [address] [id number] [place] [address]- 3182 Jun, [facility] [place] [facility] [address] [id number] [place] [address]- 4532 Jun, [facility] [place] [facility] [address] [id number] [place] [address]- 1400 Jun, [facility] [place] [facility] [address] [id number] [place] [address]- 8494 Jun, [facility] [place] [facility] [address] [id number] [place] [address]- 3810 Jun, [facility] [place] [facility] [address] [id number] [place] [address]- 7931 Jun, [facility] [place] [facility] [address] [id number] [place] [address]- 1840 Jun, [facility] [place] [facility] [address] [id number] [place] [address]- 7842 Jun, [facility] [place] [facility] [address] [id number] [place] [address]- 0468 Jun, [facility] [place] [facility] [address] [id number], [place] [address]- 5166 Jun, [facility] [place] [facility] [address] [id number] [place] [address]- 9480 Jun, [facility] [place] [facility] [address] [id number] [place] [address]- 6637 Jun, [facility] [place] [facility] [address] [id number] [place] [address]- 3422 16 May, 2014 [facility] [place] [facility] [address] [id number] [address]- 3067 May, [facility] [place] [facility] [address] [id number] [place] [address]- 0582 May, [facility] [place] [facility] [address] [id number] [place] [address]- 7088 May, [facility] [place] [facility] [address] [id number] [place] [address]- 2812 Apr, [facility] [place] [facility] [address] [id number] [place] [address]- 2913 Apr, [facility] [place] [facility] [address] [id number] [place] [address]- 5365 Apr, [facility] [place] [facility] [address] [id number] [place] [address]- 8146 Apr, [facility] [place] [facility] [address] [id number] [place] [address]- 7803 Mar, [facility] [place] [facility] [address] [id number] [place] [address]- 3080 Mar, [facility] [place] [facility] [address] [id number] [place] [address]- 2627 Mar, [facility] [place] [facility] [address] [id number] [place] [address]- 4149 Mar, [facility] [place] [facility] [address] [id number] [place] [address]- 0413 Mar, [facility] [place] [facility] [address] [id number] [place] [address]- 8308 Mar, [facility] [place] [facility] [address] [id number] [place] [address]- 3869 Mar, [facility] [place] [facility] [address] [id number] [place] [address]- 9611 Mar, [facility] [place] [facility] [address] [id number] [place] [address]- 9055 Mar, [facility] [place] [facility] [address] [id number] [place] [address]- 5376 Mar, [facility] [place] [facility] [address] [id number] [place] [address]- 6618 Mar, [facility] [place] [facility] [address] [id number] [place] [address]- 5270 Mar, [facility] [place] [facility] [address] [id number] [place] [address]- 0553 Feb, [facility] [place] [facility] [address] [id number] [place] [address]- 7700 Feb, [facility] [place] [facility] [address] [id number] [place] [address]- 0562 Feb, [facility] [place] [facility] [address] [id number] [place] [address]- 4429 Feb, [facility] [place] [facility] [address] [id number] [place] [address]- 3483 Feb, [facility] [place] [facility] [address] [id number] [place] [address]- 5187 Feb, [facility] [place] [facility] [address] [id number] [place] [address]- 0188 January, [facility] [place] [facility] [address] [id number] [place] [address]- 5336 January, [facility] [place] [facility] [address] [id number] [place] [address]- 4426 January, [facility] [place] [facility] [address] [id number] [place] [address]- 0067 January, [facility] [place] [facility] [address] [id number] [place] 3366 January, [facility] [place] [facility] [address] [id number] [place] [address]- 7363 January, [facility] [place] [facility] [address] [id number] [place] [address]- 4316 Nov, [facility] [place] [facility] [address] [id number] [place] [address]- 8704 Nov, [facility] [place] [facility] [address] [id number] [place] [address]- 5676 Nov, [facility] [place] [facility] [address] [id number] [place] [address]- 0061 Nov, [facility] [place] [facility] [address] [id number] [place] [address]- 5760 Oct, [facility] [place] [facility] [address] [id number] [place] [address]- 0623 Oct, [facility] [place] [facility] [address] [id number] [place] [address]- 8087 Sep, [facility] [place] [facility] [address] [id number] [place] [address]- 4763 Sep, [facility] [place] [facility] [address] [id number] [place] [address]- 1290 Sep, [facility] [place] [facility] [address] [id number] [place] [address]- 6870 Sep, [facility] [place] [facility] [address] [id number] [place] [address]- 8296 Sep, [facility] [place] [facility] [address] [id number] [place] [address]- 7139 Aug, [facility] [place] [facility] [address] [id number] [place] [address]- 7437 Aug, [facility] [place] [facility] [address] [id number] [place] [address]- 1850 Jul, [facility] [place] [facility] [address] [id number] [place] [address] Jul, [facility] [place] [facility] [address] [id number] [place] [address] Jul, [facility] [place] [facility] [address] [id number] [place] [address] Jun, [facility] [address] [id number] [place] [address] Jun, [facility] [place] [facility] [address] [id number] [place] [address] Jun, [facility] [address] [id number] [place] [address] Jun, [facility] [place] [facility] [address] [id number] [place] [address] Apr, [facility] [address] [id number] [place] [address] Mar, [facility] [place] [facility] [address] [id number] [place] [address] Mar, [facility] [address] [id number] [place] [address] January, [facility] [address] [id number] [place] [address] Dec, [facility] [address] [id number] [place] [address] Dec, [facility] [address] [id number] [place] [address] Nov, [facility] [address] [id number] [place] [address] Nov, [facility] [place] [facility] [address] [id number] [place] [address] Nov, [facility] [place] [facility] [address] [id number] [place] [address] 2012 [facility] [place] [facility] [address] [id number] [place] [address]- [address] Nov, [facility] [place] [facility] [address] [id number] [place] [address]- [address] 05 Nov, 2012 [facility] [place] [facility] [address] [id number] [place] [address] Oct, [facility] [place] [facility] [address] [id number] [place] [address]- [address] Sep, [facility] [place] [facility] [address] [id number] [place] [address] Aug, [facility] [place] [facility] [address] [id number] [place] [address], [place] [address]- [address] Aug, [facility] [place] [facility] [address] [id number] [place] [address] Aug, [facility] [place] [facility] [address] [id number] [place] [address] Aug, [facility] [place] [facility] [address] [facility] [id number] [place] [address] Jul, [facility] [place] [facility] [address] [id number] [place] [address] Jul, [facility] [place] [facility] [address] [id number] [place] [address] Jun, [facility] [place] [facility] [address] [id number] [place] [address]- [address] Jun, [facility] [place] [facility] [address] [facility] [id number] [place] [address] Jun, [facility] [place] [facility] [address] [id number] [place] [address]- [address] 18 Jun, 2012 [facility] [place] [facility] [address] [id number] [place] [address]- [address] 21 May, 2012 [facility] [place] [facility] [address] [id number] [place] [address] 18 May, 2012 [facility] [place] [facility] [address] [id number] [place] [address] 14 May, 2012 [facility] [place] [facility] [address] [id number] [place] [address]- [address] May, [facility] [place] [facility] [address] [id number] [place] [address] 2546 May, [facility] [place] [facility] [address] [id number] [place] [address] Apr, [facility] [place] [facility] [address] [id number] [place] [address] Apr, [facility] [place] [facility] [address] [id number] [place] [address] Mar, [facility] [place] [facility] [address] [id number] [place] [address] Mar, [facility] [place] [facility] [address] [id number] [place] [address] Mar, [facility] [place] [facility] [address] [id number] [place] [address]- [address] Feb, [facility] [place] [facility] [address] [id number] [place] [address] January, [facility] [place] [facility] [address] [id number] [place] [address] Nov, [facility] [place] [facility] [address] [id number] [place] [address] Nov, [facility] [place] [facility] [address] [id number] [place] [address] Nov, [facility] [place] [facility] [address] [id number] [place] [address] Nov, [facility] [place] [facility] [address] [id number] [place] [address] Nov, [facility] [place] [facility] [address] [id number] [place] [address] Oct, [facility] [place] [facility] [address] [id number] [place] [address] Oct, [facility] [place] [facility] [address] [id number] [place] [address] 21 Oct, 2011 [facility] [address] [id number] [place] [address] 13 Oct, 2011 [facility] [place] [facility] [address] [id number] [place] [address] 10 Oct, 2011 [facility] [address] [id number] [place] [address] Sep, [facility] [place] [facility] [address] [id number] [place] [address] Sep, [facility] [address] [id number] [place] [address] Sep, [facility] [address] [id number] [place] [address] Sep, [facility] [address] [id number] [place] [address] Sep, [facility] [address] [id number] [place] [address] Sep, [facility] [address] [id number] [place] [address] Sep, [facility] [address] [id number] [place] [address] Aug, [facility] [address] [id number] [place] [address] Aug, [facility] [place] [facility] [address] [id number] [place] [address] 16 Aug, 2011 [facility] [place] [facility] [address] [id number] [place] [address] Aug, [facility] [place] [facility] [address] [id number] [place] [address] Aug, [facility] [place] [facility] [address] [id number] [place] [address] 06 Aug, 2011 [facility] [place] [facility] [address] [id number] [place] [address] 25 Jun, 2011 [facility] [place] [facility] [address] [id number] [place] [address] 20 Jun, 2011 [facility] [place] [facility] [address] [id number] [place] [address] 14 Jun, 2011 [facility] [place] [facility] [address] [id number] [place] [address] 14 Jun, 2011 [facility] [place] [facility] [address] [id number] [place] [address] 16 Apr, 2011 [facility] [place] [facility] [address] [id number] [place] [address] Mar, [facility] [place] [facility] [address] [id number] [place] [address] Feb, [facility] [place] [facility] [address] [id number] [address] Sep, [facility] [place] [facility] [address] [id number] [place] [address] Aug, [facility] [place] [facility] [address] [id number], [place] [address] Aug, [facility] [place] [facility] [address] [id number], [place] [address] Jul, [facility] [place] [facility] [address] [id number], [place] [address] Jul, [facility] [place] [facility] [address] [id number] [place] [address] Jul, [facility] [place] [facility] [address] [id number], [place] [address] Jun, [facility] [place] [facility] [address] [id number] [place] [address] Apr, [facility] [place] [facility] [address] [facility] [id number] [place] [address] 17 Oct, 2009 [facility] [address] [id number], [place] [address] Aug, [facility] [address] [id number], [place] [address] 30 Jun, 2009 [facility] [address] [facility] [id number][place] [address] Feb, [facility] [address] [id number], [place] [address] Aug, [facility] [address] [id number], [place] [address] Jun, [facility] [address] [id number], [place] [address] Jun, IMMUNIZATIONS No Known Immunizations SOCIAL HISTORY Never Assessed REASON FOR VISIT Requests return call PLAN OF CARE VITAL SIGNS MEDICATIONS Unknown [...]
--- OUTSIDE RECORDS SUMMARY | 2018-11-24 04:45 | XMS REPORT ---
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 Medications Medication Code System Code Instructions Start Date End Date Status Dosage Aspir-81 [facility] [address]-47 81 MG Orally Once a day 1 tablet Diazepam [facility] [address]-15 10 MG TAKE ONE TABLET BY MOUTH FOUR TIMES DAILY NEEDED FOR ANXIETY Cymbalta [facility] [address]-21 60 MG Orally Once a day Oct 02, 2015 1 capsule Amitriptyline HCl [facility] [address]-83 10 MG Orally Once a day Nov 06, 2015 1 tablet Procedures Procedure Coding System Code Date Office Visit, Est Pt., Level 3 CPT-4 54842 January 20, 2016 Vital Signs Date/Time: January 20, 2016 Cardiac Monitoring Heart Rate 88 bpm Weight 212.5 lbs Height 72 in BMI 28.82 Index Blood Pressure Diastolic 80 mmHg Blood Pressure Systolic 130 mmHg Results No Known Results Summary Purpose eClinicalWorks Submission
--- OUTSIDE RECORDS SUMMARY | 2018-11-24 04:45 | XMS REPORT ---
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 Active 94559172 Problem Chronic pain syndrome G89.4 Active 73248735 Problem Portal vein thrombosis I81 Active 31883087 Problem Chronic hepatitis C without hepatic coma B18.2 Active 522385094 Problem Elevated platelet count D47.3 Active 468195076 Problem Other chronic pain G89.29 Active 27082824 Problem Major depressive disorder, recurrent, moderate F33.1 Active 47436303 Problem Urinary hesitancy R39.11 Active 4296597 Problem Gastroesophageal reflux disease, esophagitis presence not specified K21.9 Active 797239308 ALLERGIES No Information ENCOUNTERS Encounter Location Date Diagnosis [facility] [id number] [place] [address] 86052- 6846 Sep, Chronic pain syndrome G89.4 [facility] [address] [address] 86[address] Sep, [facility] [id number] [place] [address] 93806- 0157 Sep, [facility] [id number] [place] [address] 80644- 3911 Sep, [facility] [id number] [place] [address] 92102- 8419 Sep, [facility] [id number] [place] [address] 09497- 6291 Sep, [facility] [id number] [place] [address] 74518- 8975 Sep, [facility] [id number] [place] [address] 57923- 5973 Aug, [facility] [id number] [place] [address] 67926- 2266 Aug, Portal vein thrombosis I81 ; Chronic pain syndrome G89.4 ; Other acute pulmonary embolism without acute cor pulmonale I26.99 and Chronic hepatitis C without hepatic coma B18.2 [facility] [id number] [place] [address] 46692- 2114 Aug, [facility] [id number] [place] [address] 63146- 4033 Aug, [facility] [id number] [place] [address] 83681- 0738 Jul, Major depressive disorder, recurrent, moderate F33.1 and Posttraumatic stress disorder F43.10 [facility] [id number] [place] [address] 93908- 8628 Jul, Gastroesophageal reflux disease, esophagitis presence not specified K21.9 [facility] [id number] [place] [address] 67773- 6954 Jun, [facility] [id number] [place] [address] 60355- 6616 Jun, [facility] [id number] [place] [address] 70378- 3460 Jun, Posttraumatic stress disorder F43.10 and 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 [facility] [id number] [place] [address] 30845- 2254 Apr, [facility] [id number] [place] [address] 45436- 5786 Apr, Mass of sinus R22.0 ; 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 and Elevated platelet count D47.3 [facility] [id number] [place] [address] 49824- 5130 Apr, 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 and Posttraumatic stress disorder F43.10 [facility] [id number] [place] [address] 24066- 9657 January, [facility] [id number] [place] [address] 12691- 6148 January, Posttraumatic stress disorder F43.10 and 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 [facility] [id number] [place] [address] 29445- 8331 Dec, 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 and Elevated platelet count D47.3 [facility] [id number] [place] [address] 19963- 7125 Dec, [facility] [id number] [place] [address] 34350- 2999 Dec, Low energy R53.83 ; 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 ; Gastroesophageal reflux disease, esophagitis presence not specified K21.9 and Urinary hesitancy R39.11 [facility] [id number] [place] [address] 32940- 2074 Dec, Posttraumatic stress disorder F43.10 and 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 [facility] [id number] [place] [address] 67610- 7285 Oct, [facility] [id number] [place] [address] 99939- 5583 Sep, Mass of sinus R22.0 [facility] [id number] [place] [address] 71523- 9768 Sep, Dysuria R30.0 ; Low back pain M54.5 ; Other chronic pain G89.29 ; Poor nutrition E63.9 ; Gastroesophageal reflux disease, esophagitis presence not specified K21.9 and Mass of sinus R22.0 [facility] [id number] [place] [address] 10694- 8624 Sep, Posttraumatic stress disorder F43.10 and 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 [facility] [address] 15148- 0528 Sep, [facility] [address] 24320- 0047 Aug, [facility] [address] 56572- 4876 Aug, Encounter for immunization Z23 [facility] [address] [address]30- 1961 Jul, Posttraumatic stress disorder F43.10 ; 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 and Major depressive disorder, recurrent, moderate F33.1 [facility] [id number] [place] [address] 38703- 1482 Jun, [facility] [id number] [place] [address] 77099- 3076 Jun, [facility] [id number] [place] [address] 34038- 1049 May, [facility] [id number] [place] [address] 89389- 6695 Apr, [facility] [id number] [place] [address] 99939- 0879 Apr, Posttraumatic stress disorder F43.10 and 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 [facility] [id number] [place] [address] 04470- 6260 Mar, [facility] [address] 50736- 1219 Feb, [facility] [address] [address]- 7854 January, [facility] [id number] [place] [address] 13305- 7204 January, Posttraumatic stress disorder F43.10 and 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 [facility] [id number] [place] [address] 85937- 4631 Dec, [facility] [id number] [place] [address] 70602- 7804 Nov, [facility] [id number] [place] [address] 19604- 3752 Nov, [facility] [id number] [place] [address] 94978- 3275 Oct, Posttraumatic stress disorder F43.10 and 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 [facility] [id number] [place] [address] 06727- 5556 Sep, Encounter for immunization Z23 ; Posttraumatic stress disorder F43.10 and 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 [facility] [id number] [place] [address] 58647- 8664 Aug, [facility] [address] [address]- 3647 Aug, [facility] [id number] [place] [address] 06749- 9400 Jul, Encounter for immunization Z23 ; Posttraumatic stress disorder F43.10 and 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 [facility] [id number] [place] [address] 30586- 1188 Jun, [facility] [address] [place] [address] 01555- 6483 Jun, Mass of sinus R22.0 ; Low back pain M54.5 and Paroxysmal atrial fibrillation I48.0 [facility] [address] [facility] [id number] [address]- 8057 May, [facility] [id number] [place] [address] 456101- 6694 Apr, Posttraumatic stress disorder 309.81 and Major depressive disorder, recurrent episode, moderate 296.32 [facility] [id number] [place] [address] 22527- 2809 Apr, [facility] [address] [facility] [id number] 5338 Mar, Major depressive disorder, recurrent episode, moderate 296.32 and Posttraumatic stress disorder 309.81 [facility] [id number] [place] [address] 630822- 9292 Feb, [facility] [address] [address]- 7227 Feb, [facility] [id number] [address]- 2524 January, [facility] [address] [address]- 4587 January, [facility] [address] 2231 January, [facility] [address], [place] [address]- 0666 Dec, [facility] [address] [address]- 4799 Dec, [facility] [address] 2709 Nov, [facility] [address] 6029 Nov, [facility] [address] [address]- 2035 Nov, [facility] [id number] [place] [address] [place] [address]- 6774 06 Nov, 2014 [facility] [place] [facility] [address] [id number] [place] [address]- 0492 Nov, 2014 [facility] [place] [facility] [address] [id number] [place] [address]- 4620 Nov, 2014 [facility] [place] [facility] [address] [id number] [place] [address]- 7484 Nov, 2014 [facility] [place] [facility] [address] [id number] [place] [address]- 1681 Nov, 2014 [facility] [place] [facility] [address] [id number] [place] [address]- 6240 Oct, 2014 [facility] [place] [facility] [address] [id number] [place] [address]- 6433 Oct, 2014 [facility] [place] [facility] [address] [id number] [place] [address]- 2819 16 Oct, 2014 [facility] [place] [facility] [address] [id number] [place] [address]- 4906 16 Oct, 2014 [facility] [place] [facility] [address] [id number] [place] [address]- 8028 16 Oct, 2014 [facility] [place] [facility] [address] [id number] [place] [address]- 8765 16 Oct, 2014 [facility] [place] [facility] [address] [id number] [place] [address]- 4829 Oct, 2014 [facility] [place] [facility] [address] [id number] [place] [address]- 6799 Oct, 2014 [facility] [place] [facility] [address] [id number] [place] [address]- 8877 Oct, 2014 [facility] [place] [facility] [address] [id number] [place] [address]- 4990 06 Oct, 2014 [facility] [place] [facility] [address] [id number] [place] [address]- 7292 Oct, 2014 [facility] [place] [facility] [address] [id number] [place] [address]- 3022 Oct, 2014 [facility] [place] [facility] [address] [id number] [place] [address]- 1899 Oct, 2014 [facility] [place] [facility] [address] [id number] [place] [address]- 8232 Oct, 2014 [facility] [place] [facility] [address] [id number] [place] [address]- 5101 Oct, 2014 [facility] [place] [facility] [address] [id number] [place] [address]- 3703 Oct, 2014 [facility] [place] [facility] [address] [id number] [place] [address]- 8502 Sep, [facility] [place] [facility] [address] [facility] [id number] [place] [address]- 7337 Sep, [facility] [place] [facility] [address] [id number] [place] [address]- 1984 Sep, [facility] [place] [facility] [address] [id number] [place] [address]- 1162 Sep, [facility] [place] [facility] [address] [facility] [id number] [place] [address]- 1588 Aug, [facility] [place] [facility] [address] [id number] [place] [address]- 8451 Aug, [facility] [place] [facility] [address] [id number] [place] [address]- 2233 Aug, [facility] [place] [facility] [address] [id number] [place] [address]- 8989 Aug, [facility] [place] [facility] [address] [id number] [place] [address]- 0017 Aug, [facility] [place] [facility] [address] [facility] [id number] [place] [address]- 9769 Aug, [facility] [place] [facility] [address] [id number] [place] [address]- 9655 Aug, [facility] [place] [facility] [address] [id number] [place] 6602 Aug, [facility] [place] [facility] [address] [id number] [place] 3014 Aug, [facility] [place] [facility] [address] [id number] [place] 0144 Aug, [facility] [place] [facility] [address] [id number] [place] [address]- 3380 Aug, [facility] [place] [facility] [address] [id number] [place] 0299 Aug, [facility] [place] [facility] [address] [id number] [place] [address]- 6144 Aug, [facility] [place] [facility] [address] [id number] [place] [address]- 1447 Aug, [facility] [place] [facility] [address] [id number] [place] [address]- 0863 Aug, [facility] [place] [facility] [address] [id number] [place] [address]- 0248 Aug, [facility] [place] [facility] [address] [id number] [place] [address]- 4588 Jul, [facility] [place] [facility] [address] [id number] [place] [address]- 7939 Jul, [facility] [place] [facility] [address] [id number] [place] [address]- 4700 Jul, [facility] [place] [facility] [address] [id number] [place] [address]- 9788 Jul, [facility] [place] [facility] [address] [id number] [place] [address]- 3588 Jul, [facility] [place] [facility] [address] [id number] [place] [address]- 2202 Jul, [facility] [place] [facility] [address] [id number] [place] [address]- 0067 Jun, [facility] [place] [facility] [address] [id number] [place] [address]- 1823 Jun, [facility] [place] [facility] [address] [id number] [place] [address]- 6959 Jun, [facility] [place] [facility] [address] [id number] [place] [address]- 7372 Jun, [facility] [place] [facility] [address] [id number] [place] [address]- 9109 Jun, [facility] [place] [facility] [address] [id number] [place] [address]- 8294 Jun, [facility] [place] [facility] [address] [id number] [place] [address]- 7065 Jun, [facility] [place] [facility] [address] [id number] [place] [address]- 7804 Jun, [facility] [place] [facility] [address] [id number] [place] [address]- 3236 Jun, [facility] [place] [facility] [address] [id number] [place] [address]- 3169 Jun, [facility] [place] [facility] [address] [id number], [place] [address]- 3316 Jun, [facility] [place] [facility] [address] [id number], [place] [address]- 3609 Jun, [facility] [place] [facility] [address] [id number] [place] [address]- 9969 Jun, [facility] [place] [facility] [address] [id number] [place] [address]- 7877 Jun, [facility] [place] [facility] [address] [id number] [place] 7420 16 May, 2014 [facility] [place] [facility] [address] [id number] [place] [address]- 5670 May, [facility] [place] [facility] [address] [id number] [place] [address]- 7975 May, [facility] [place] [facility] [address] [id number] [place] [address]- 7018 May, [facility] [place] [facility] [address] [id number] [place] [address]- 3688 Apr, [facility] [place] [facility] [address] [id number] [place] [address]- 6845 Apr, [facility] [place] [facility] [address] [id number] [place] [address]- 6436 Apr, [facility] [place] [facility] [address] [id number] [place] [address]- 6307 Apr, [facility] [place] [facility] [address] [id number] [place] [address]- 7771 Mar, [facility] [place] [facility] [address] [id number] [place] [address]- 2537 Mar, [facility] [place] [facility] [address] [id number] [place] [address]- 1117 Mar, [facility] [place] [facility] [address] [id number] [place] [address]- 6208 Mar, [facility] [place] [facility] [address] [id number] [place] [address]- 5476 Mar, [facility] [place] [facility] [address] [id number] [place] [address]- 9815 Mar, [facility] [place] [facility] [address] [id number] [place] [address]- 3083 Mar, [facility] [place] [facility] [address] [id number] [place] [address]- 4395 Mar, [facility] [place] [facility] [address] [id number] [place] [address]- 1802 Mar, [facility] [place] [facility] [address] [id number] [place] [address]- 7728 Mar, [facility] [place] [facility] [address] [id number] [place] [address]- 5359 Mar, [facility] [place] [facility] [address] [id number] [place] [address]- 3504 Mar, [facility] [place] [facility] [address] [id number] [place] [address]- 7955 Feb, [facility] [place] [facility] [address] [id number] [place] [address]- 9603 Feb, [facility] [place] [facility] [address] [id number] [place] [address]- 0706 Feb, [facility] [place] [facility] [address] [id number] [place] [address]- 0216 Feb, [facility] [place] [facility] [address] [id number] [place] [address]- 4601 Feb, [facility] [place] [facility] [address] [id number] [place] [address]- 6921 Feb, [facility] [place] [facility] [address] [id number] [place] [address]- 5167 January, [facility] [place] [facility] [address] [id number] [place] [address]- 6224 January, [facility] [place] [facility] [address] [id number] [place] [address]- 6304 January, [facility] [place] [facility] [address] [id number] [place] [address]- 4987 January, [facility] [place] [facility] [address] [id number] [place] [address]- 1799 January, [facility] [place] [facility] [address] [id number] [place] [address]- 8959 January, [facility] [place] [facility] [address] [id number] [place] [address]- 4002 Nov, [facility] [place] [facility] [address] [id number] [place] [address]- 9788 Nov, [facility] [place] [facility] [address] [id number] [place] [address]- 4214 Nov, [facility] [place] [facility] [address] [id number] [place] [address]- 9855 Nov, [facility] [place] [facility] [address] [id number] [place] [address]- 3716 Oct, [facility] [place] [facility] [address] [id number] [place] [address]- 1859 Oct, [facility] [place] [facility] [address] [id number] [place] [address]- 1375 Sep, [facility] [place] [facility] [address] [id number] [place] [address]- 9800 Sep, [facility] [place] [facility] [address] [id number] [place] [address]- 2650 Sep, [facility] [place] [facility] [address] [id number] [place] [address]- 7396 Sep, [facility] [place] [facility] [address] [id number] [place] [address]- 3842 Sep, [facility] [place] [facility] [address] [id number], [place] [address]- 8201 Aug, [facility] [place] [facility] [address] [id number], [place] [address]- 2580 Aug, [facility] [place] [facility] [address] [id number] [place] [address]- 8424 Jul, [facility] [place] [facility] [address] [id number] [place] [address]- 8421 Jul, [facility] [place] [facility] [address] [id number] [place] [address] Jul, [facility] [place] [facility] [address] [id number] [place] [address] Jun, [facility] [address] [id number] [place] [address] Jun, [facility] [address] [id number] [place] [address] Jun, [facility] [address] [id number] [place] [address] Jun, [facility] [address] [id number] [place] [address] Apr, [facility] [address] [id number] [place] [address] Mar, [facility] [address] [id number] [place] [address] Mar, [facility] [address] [id number] [place] [address] January, [facility] [address] [id number] [place] [address] Dec, [facility] [address] [id number] [place] [address] Dec, [facility] [address] [id number] [place] [address] Nov, [facility] [address] [id number] [place] [address] Nov, [facility] [address] [id number] [place] [address] Nov, [facility] [address] [id number] [place] [address] 2012 [facility] [address] [id number] [place] [address] Nov, [facility] [address] [id number] [place] [address] Nov, [facility] [place] [facility] [address] [id number] [place] [address] Oct, [facility] [place] [facility] [address] [id number] [place] [address] Sep, [facility] [place] [facility] [address] [id number] [place] [address] Aug, [facility] [place] [facility] [address] [id number] [place] [address] Aug, [facility] [place] [facility] [address] [id number] [place] [address] Aug, [facility] [place] [facility] [address] [id number] [place] [address] Aug, [facility] [place] [facility] [address] [facility] [id number] [place] [address] Jul, [facility] [place] [facility] [address] [id number], [place] [address] Jul, [facility] [place] [facility] [address] [id number] [place] [address] Jun, [facility] [place] [facility] [address] [facility] [id number], [place] [address] Jun, [facility] [place] [facility] [address] [facility] [id number], [place] [address] Jun, [facility] [place] [facility] [address] [id number], [place] [address] 18 Jun, 2012 [facility] [place] [facility] [address] [id number], [place] [address] 21 May, 2012 [facility] [place] [facility] [address] [id number], [place] [address] 18 May, 2012 [facility] [place] [facility] [address] [facility] [id number], [place] [address] 14 May, 2012 [facility] [place] [facility] [address] [id number], [place] [address] 10 May, 2012 [facility] [address] [id number] [place] [address] May, [facility] [place] [facility] [address] [id number] [place] [address] Apr, [facility] [place] [facility] [address] [id number] [place] [address] Apr, [facility] [place] [facility] [address] [id number] [place] [address] 1996 Mar, [facility] [place] [facility] [address] [id number] [place] [address] Mar, [facility] [place] [facility] [address] [id number] [place] [address] Mar, [facility] [address] [id number] [place] [address] Feb, [facility] [place] [facility] [address] [id number] [place] [address] January, [facility] [place] [facility] [address] [id number] [place] [address]- [address] Nov, [facility] [place] [facility] [address] [facility] [id number] [place] [address] Nov, [facility] [place] [facility] [address] [id number] [place] [address] Nov, [facility] [place] [facility] [address] [id number] [place] [address] Nov, [facility] [place] [facility] [address] [id number] [place] [address] Nov, [facility] [place] [facility] [address] [id number] [place] [address] Oct, [facility] [place] [facility] [address] [id number] [place] [address] Oct, [facility] [place] [facility] [address] [id number] [place] [address] Oct, [facility] [address] [id number] [place] [address] Oct, [facility] [address] [id number] [place] [address] Oct, [facility] [address] [id number] [place] [address] Sep, [facility] [address] [id number] [place] [address] Sep, [facility] [address] [id number] [place] [address] Sep, [facility] [address] [id number] [place] [address] Sep, [facility] [address] [id number] [place] [address] Sep, [facility] [address] [id number] [place] [address] Sep, [facility] [address] [id number] [place] [address] Sep, [facility] [address] [id number] [place] [address] Aug, [facility] [address] [id number] [place] [address] Aug, [facility] [address] [id number] [place] [address] Aug, [facility] [place] [facility] [address] [id number] [place] [address] Aug, [facility] [address] [id number] [place] [address] Aug, [facility] [address] [id number], [place] [address] 06 Aug, 2011 [facility] [place] [facility] [address] [id number] [place] [address] 25 Jun, 2011 [facility] [place] [facility] [address] [id number] [place] 20 Jun, 2011 [facility] [place] [facility] [address] [id number] [place] [address] 14 Jun, 2011 [facility] [place] [facility] [address] [id number] [place] [address] 14 Jun, 2011 [facility] [place] [facility] [address] [id number] [place] [address] 16 Apr, 2011 [facility] [place] [facility] [address] [id number] [place] [address] Mar, [facility] [place] [facility] [address] [id number] [place] [address] Feb, [facility] [place] [facility] [address] [id number] [place] [address] Sep, [facility] [place] [facility] [address] [id number] [place] [address] Aug, [facility] [place] [facility] [address] [id number] [place] [address] Aug, [facility] [place] [facility] [address] [id number], [place] [address] Jul, [facility] [place] [facility] [address] [id number] [place] [address] Jul, [facility] [place] [facility] [address] [id number] [place] [address] Jul, [facility] [place] [facility] [address] [id number] [place] [address] Jun, [facility] [place] [facility] [address] [id number] [place] [address] Apr, [facility] [place] [facility] [address] [id number] [place] [address] 17 Oct, 2009 [facility] [address] [id number] [address] Aug, [facility] [address] [id number], [place] [address] Jun, [facility] [address] [id number], [place] [address] Feb, [facility] [address] [id number], [place] [address] Aug, [facility] [address] [id number], [place] [address] Jun, [facility] [address] [id number] [address] Jun, IMMUNIZATIONS No Known Immunizations SOCIAL HISTORY Never Assessed REASON FOR VISIT Referral PLAN OF CARE VITAL SIGNS MEDICATIONS Unknown [...]
--- OUTSIDE RECORDS SUMMARY | 2018-11-24 04:46 | XMS REPORT ---
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 Active 38065167 Problem History of atrial flutter Z86.79 Active 235762408 Problem Portal vein thrombosis I81 Active 13591978 Problem Elevated platelet count D47.3 Active 074141194 Problem Urinary hesitancy R39.11 Active 6032237 Problem Posttraumatic stress disorder F43.10 Active 03722842 Problem 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
--- OUTSIDE RECORDS SUMMARY | 2018-11-24 04:46 | XMS REPORT ---
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 75856050 Problem Chronic pain syndrome G89.4 Active 53027101 Problem Elevated platelet count D47.3 Active 811673471 Problem Urinary hesitancy R39.11 Active 4085255 Problem Major depressive disorder, recurrent, moderate F33.1 Active 78870042 Problem Posttraumatic stress disorder F43.10 Active 60033555 Problem Gastroesophageal reflux disease, esophagitis presence not specified K21.9 Active 611888289 Problem Other chronic pain G89.29 Active 39910886 ALLERGIES Unknown Allergies SOCIAL HISTORY No smoking Hx information available PLAN OF CARE VITAL SIGNS MEDICATIONS Unknown Medications RESULTS No Results PROCEDURES No Known procedures IMMUNIZATIONS No Known Immunizations
--- OUTSIDE RECORDS SUMMARY | 2018-11-24 04:46 | XMS REPORT ---
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 91116347 Problem Chronic pain syndrome G89.4 Active 74695932 Problem Elevated platelet count D47.3 Active 638429932 Problem Urinary hesitancy R39.11 Active 9970966 Problem Major depressive disorder, recurrent, moderate F33.1 Active 12095604 Problem Posttraumatic stress disorder F43.10 Active 02090196 Problem Gastroesophageal reflux disease, esophagitis presence not specified K21.9 Active 682977701 Problem Other chronic pain G89.29 Active 29195670 ALLERGIES Unknown Allergies SOCIAL HISTORY No smoking Hx information available PLAN OF CARE VITAL SIGNS MEDICATIONS Unknown Medications RESULTS No Results PROCEDURES No Known procedures IMMUNIZATIONS No Known Immunizations
--- OUTSIDE RECORDS SUMMARY | 2018-11-24 04:46 | XMS REPORT ---
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 Medications Medication Code System Code Instructions Start Date End Date Status Dosage Ibuprofen [facility] [address]-75 800 MG Orally Three times a day as needed 1 tablet Valium [facility] [address]-85 10 MG Orally 4 times a day PRN Must last 30 days 1 tablet Seroquel XR [facility] [address]-16 400 MG Orally Once a day Jul 22, 2015 1 tablet in the evening Aspir-81 [facility] [address]-81 81 MG Orally Once a day 1 tablet Procedures Procedure Coding System Code Date FLUARIX QUAD (3 & UP)--2014 CPT-4 67795 Jul 22, 2015 SINGLE IMMUNIZATION ADMIN CPT-4 08349 Jul 22, 2015 Office Visit, Est Pt., Level 3 CPT-4 53865 Jul 22, 2015 Vital Signs Date/Time: Jul 22, 2015 Cardiac Monitoring Heart Rate 88 bpm Weight 214.6 lbs Height 72 in BMI 29.10 Index Blood Pressure Diastolic 80 mmHg Blood Pressure Systolic 100 mmHg Results No Known Results Immunizations Vaccine Administration Date FLUARIX QUAD (3 & UP)-[facility]-2014Jul 22, 2015 Summary Purpose eClinicalWorks Submission
--- OUTSIDE RECORDS SUMMARY | 2018-11-24 04:46 | XMS REPORT ---
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 Active 91852411 Problem Chronic pain syndrome G89.4 Active 49463082 Problem Portal vein thrombosis I81 Active 16318595 Problem Chronic hepatitis C without hepatic coma B18.2 Active 412996824 Problem Elevated platelet count D47.3 Active 512031236 Problem Other chronic pain G89.29 Active 43929633 Problem Major depressive disorder, recurrent, moderate F33.1 Active 39467722 Problem Urinary hesitancy R39.11 Active 7330954 Problem Gastroesophageal reflux disease, esophagitis presence not specified K21.9 Active 108933266 ALLERGIES No Information ENCOUNTERS Encounter Location Date Diagnosis [facility] [id number] [place] [address] 26572- 1036 Sep, Chronic pain syndrome G89.4 [facility] [address] [address] 5287 Sep, [facility] [id number] [place] [address] 91690- 1481 Sep, [facility] [id number] [place] [address] 11196- 5838 Sep, [facility] [id number] [place] [address] 00087- 5393 Sep, [facility] [id number] [place] [address] 02619- 3069 Sep, [facility] [id number] [place] [address] 58026- 3903 Sep, [facility] [id number] [place] [address] 32080- 2934 Aug, [facility] [id number] [place] [address] 56839- 2649 Aug, Portal vein thrombosis I81 ; Chronic pain syndrome G89.4 ; Other acute pulmonary embolism without acute cor pulmonale I26.99 and Chronic hepatitis C without hepatic coma B18.2 [facility] [id number] [place] [address] 41623- 2059 Aug, [facility] [id number] [place] [address] 83254- 3910 Aug, [facility] [id number] [place] [address] 81248- 6906 Jul, Major depressive disorder, recurrent, moderate F33.1 and Posttraumatic stress disorder F43.10 [facility] [address] [place] [address] 22536- 2465 Jul, Gastroesophageal reflux disease, esophagitis presence not specified K21.9 [facility] [id number] [place] [address] 47489- 0219 Jun, [facility] [id number] [place] [address] 92797- 5568 Jun, [facility] [id number] [place] [address] 69217- 6734 Jun, Posttraumatic stress disorder F43.10 and 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 [facility] [address] [place] [address] 75485- 9806 Apr, [facility] [id number] [place] [address] 33138- 3361 Apr, Mass of sinus R22.0 ; 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 and Elevated platelet count D47.3 [place] [address] [place] [address] 46786- 4990 Apr, 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 and Posttraumatic stress disorder F43.10 [place] [facility] [id number] [place] [address] 25553- 6871 January, [facility] [facility] [id number] [place] [address] 60818- 6201 January, Posttraumatic stress disorder F43.10 and 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 [facility] [facility] [id number] [place] [address] 12460- 0393 Dec, 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 and Elevated platelet count D47.3 [facility] [facility] [id number] [place] [address] 99762- 4596 Dec, [facility] [facility] [id number] [place] [address] 71879- 8910 Dec, Low energy R53.83 ; 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 ; Gastroesophageal reflux disease, esophagitis presence not specified K21.9 and Urinary hesitancy R39.11 [place] [address] [place] [address] 76502- 4082 Dec, Posttraumatic stress disorder F43.10 and 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 [place] [facility] [id number] [place] [address] 70915- 7249 Oct, [facility] [facility] [id number] [place] [address] 95607- 2784 Sep, Mass of sinus R22.0 [facility] [facility] [id number] [place] [address] 76279- 5613 Sep, Dysuria R30.0 ; Low back pain M54.5 ; Other chronic pain G89.29 ; Poor nutrition E63.9 ; Gastroesophageal reflux disease, esophagitis presence not specified K21.9 and Mass of sinus R22.0 [facility] [id number] [place] [address] 71392- 8303 Sep, Posttraumatic stress disorder F43.10 and 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 [facility] [address] 09806- 4583 Sep, [facility] [address] 55667- 2874 Aug, [facility] [address] 85687- 1515 Aug, Encounter for immunization Z23 [facility] [address] 58374- 7248 Jul, Posttraumatic stress disorder F43.10 ; 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 and Major depressive disorder, recurrent, moderate F33.1 [facility] [id number] [place] [address] 21839- 7987 Jun, [facility] [id number] [place] [address] 54290- 8542 Jun, [facility] [id number] [place] [address] 97272- 4245 May, [facility] [id number] [place] [address] 51394- 9150 Apr, [facility] [id number] [place] [address] 87276- 2233 Apr, Posttraumatic stress disorder F43.10 and 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 [facility] [id number] [place] [address] 21235- 5417 Mar, [facility] [address] 27068- 5369 Feb, [facility] [address] [address]- 7461 January, [facility] [id number] [place] [address] 77308- 8556 January, Posttraumatic stress disorder F43.10 and 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 [facility] [id number] [place] [address] 69143- 4524 Dec, [facility] [id number] [place] [address] 39008- 9969 Nov, [facility] [id number] [place] [address] 37116- 1310 Nov, [facility] [id number] [place] [address] 50710- 4271 Oct, Posttraumatic stress disorder F43.10 and 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 [facility] [id number] [place] [address] 64025- 0101 Sep, Encounter for immunization Z23 ; Posttraumatic stress disorder F43.10 and 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 [facility] [address] [place] [address] 22627- 4774 Aug, [facility] [address] [address]- 3867 Aug, [facility] [address] [place] [address] 14400- 9408 Jul, Encounter for immunization Z23 ; Posttraumatic stress disorder F43.10 and 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 [facility] [id number] [place] [address] 16217- 4534 Jun, [facility] [address] [place] [address] 42692- 9257 Jun, Mass of sinus R22.0 ; Low back pain M54.5 and Paroxysmal atrial fibrillation I48.0 [facility] [address] [facility] [id number] [address]- 2836 May, [facility] [id number] [place] [address] 507897- 6088 Apr, Posttraumatic stress disorder 309.81 and Major depressive disorder, recurrent episode, moderate 296.32 [facility] [id number] [place] [address] 69056- 0922 Apr, [facility] [address] [facility] [id number] [place] 5669 Mar, Major depressive disorder, recurrent episode, moderate 296.32 and Posttraumatic stress disorder 309.81 [facility] [id number] [place] [address] 843957- 5078 Feb, [facility] [address] [address]- 0120 Feb, [facility] [id number] [address]- 5015 January, [facility] [address] [address]- 5260 January, [facility] [address] 6193 January, [facility] [address] [address]- 4491 Dec, [facility] [address] [address]- 3115 Dec, [facility] [address] 9156 Nov, [facility] [address] 1072 Nov, [facility] [address] [address]- 4804 Nov, [facility] [id number] [place] [address] [place] [address]- 5691 06 Nov, 2014 [facility] [place] [facility] [address] [id number] [place] [address]- 9775 Nov, 2014 [facility] [place] [facility] [address] [id number] [place] [address]- 6702 Nov, 2014 [facility] [place] [facility] [address] [id number] [place] [address]- 2415 Nov, 2014 [facility] [place] [facility] [address] [id number] [place] [address]- 1623 Nov, 2014 [facility] [place] [facility] [address] [id number] [place] [address]- 1212 Oct, 2014 [facility] [place] [facility] [address] [id number] [place] [address]- 9561 Oct, 2014 [facility] [place] [facility] [address] [id number] [place] [address]- 0348 16 Oct, 2014 [facility] [place] [facility] [address] [id number] [place] [address]- 3640 16 Oct, 2014 [facility] [place] [facility] [address] [id number] [place] [address]- 7912 16 Oct, 2014 [facility] [place] [facility] [address] [id number] [place] [address]- 7512 16 Oct, 2014 [facility] [place] [facility] [address] [id number] [place] [address]- 6481 Oct, 2014 [facility] [place] [facility] [address] [id number] [place] [address]- 1920 Oct, 2014 [facility] [place] [facility] [address] [id number] [place] [address]- 0092 Oct, 2014 [facility] [place] [facility] [address] [id number] [place] [address]- 9536 06 Oct, 2014 [facility] [place] [facility] [address] [id number] [place] [address]- 5681 Oct, 2014 [facility] [place] [facility] [address] [id number] [place] [address]- 4495 Oct, 2014 [facility] [place] [facility] [address] [id number] [place] [address]- 3211 Oct, 2014 [facility] [place] [facility] [address] [id number] [place] [address]- 3915 Oct, 2014 [facility] [place] [facility] [address] [id number] [place] [address]- 9985 Oct, 2014 [facility] [place] [facility] [address] [id number] [place] [address]- 6278 Oct, 2014 [facility] [place] [facility] [address] [id number] [place] [address]- 5166 Sep, [facility] [place] [facility] [address] [facility] [id number] [place] [address]- 1219 Sep, [facility] [place] [facility] [address] [id number] [place] [address]- 3265 Sep, [facility] [place] [facility] [address] [id number] [place] [address]- 6839 Sep, [facility] [place] [facility] [address] [facility] [id number] [place] [address]- 7858 Aug, [facility] [place] [facility] [address] [id number] [place] [address]- 3032 Aug, [facility] [place] [facility] [address] [id number] [place] [address]- 9049 Aug, [facility] [place] [facility] [address] [id number] [place] [address]- 8404 Aug, [facility] [place] [facility] [address] [id number] [place] [address]- 5861 Aug, [facility] [place] [facility] [address] [facility] [id number] [place] [address]- 7278 Aug, [facility] [place] [facility] [address] [id number] [place] [address]- 0871 Aug, [facility] [place] [facility] [address] [id number] [place] 6213 Aug, [facility] [place] [facility] [address] [id number] [place] 7900 Aug, [facility] [place] [facility] [address] [id number] [place] 8231 Aug, [facility] [place] [facility] [address] [id number] [place] [address]- 7099 Aug, [facility] [place] [facility] [address] [id number] [place] 1024 Aug, [facility] [place] [facility] [address] [id number] [place] [address]- 3568 Aug, [facility] [place] [facility] [address] [id number] [place] [address]- 5963 Aug, [facility] [place] [facility] [address] [id number] [place] [address]- 6130 Aug, [facility] [place] [facility] [address] [id number] [place] [address]- 7907 Aug, [facility] [place] [facility] [address] [id number] [place] [address]- 8803 Jul, [facility] [place] [facility] [address] [id number] [place] [address]- 9920 Jul, [facility] [place] [facility] [address] [id number] [place] [address]- 6781 Jul, [facility] [place] [facility] [address] [id number] [place] [address]- 6530 Jul, [facility] [place] [facility] [address] [id number] [place] [address]- 5424 Jul, [facility] [place] [facility] [address] [id number] [place] [address]- 9022 Jul, [facility] [place] [facility] [address] [id number] [place] [address]- 5899 Jun, [facility] [place] [facility] [address] [id number] [place] [address]- 5861 Jun, [facility] [place] [facility] [address] [id number] [place] [address]- 8662 Jun, [facility] [place] [facility] [address] [id number] [place] [address]- 3295 Jun, [facility] [place] [facility] [address] [id number] [place] [address]- 3787 Jun, [facility] [place] [facility] [address] [id number] [place] [address]- 9727 Jun, [facility] [place] [facility] [address] [id number] [place] [address]- 2089 Jun, [facility] [place] [facility] [address] [id number] [place] [address]- 1216 Jun, [facility] [place] [facility] [address] [id number] [place] [address]- 5788 Jun, [facility] [place] [facility] [address] [id number] [place] [address]- 8088 Jun, [facility] [place] [facility] [address] [id number] [place] [address]- 3055 Jun, [facility] [place] [facility] [address] [id number] [place] [address]- 6336 Jun, [facility] [place] [facility] [address] [id number] [place] [address]- 3409 Jun, [facility] [place] [facility] [address] [id number] [place] [address]- 5206 Jun, [facility] [place] [facility] [address] [id number] [place] 5624 16 May, 2014 [facility] [place] [facility] [address] [id number] [place] [address]- 3372 May, [facility] [place] [facility] [address] [id number] [place] [address]- 2927 May, [facility] [place] [facility] [address] [id number] [place] [address]- 8863 May, [facility] [place] [facility] [address] [id number] [place] [address]- 6584 Apr, [facility] [place] [facility] [address] [id number] [place] [address]- 4890 Apr, [facility] [place] [facility] [address] [id number] [place] [address]- 1804 Apr, [facility] [place] [facility] [address] [id number] [place] [address]- 3053 Apr, [facility] [place] [facility] [address] [id number] [place] [address]- 1470 Mar, [facility] [place] [facility] [address] [id number] [place] [address]- 8321 Mar, [facility] [place] [facility] [address] [id number] [place] [address]- 4434 Mar, [facility] [place] [facility] [address] [id number] [place] [address]- 7852 Mar, [facility] [place] [facility] [address] [id number] [place] [address]- 7624 Mar, [facility] [place] [facility] [address] [id number] [place] [address]- 2168 Mar, [facility] [place] [facility] [address] [id number] [place] [address]- 9392 Mar, [facility] [place] [facility] [address] [id number] [place] [address]- 8514 Mar, [facility] [place] [facility] [address] [id number] [place] [address]- 4266 Mar, [facility] [place] [facility] [address] [id number] [place] [address]- 9541 Mar, [facility] [place] [facility] [address] [id number] [place] [address]- 5712 Mar, [facility] [place] [facility] [address] [id number] [place] [address]- 6816 Mar, [facility] [place] [facility] [address] [id number] [place] [address]- 7529 Feb, [facility] [place] [facility] [address] [id number] [place] [address]- 9840 Feb, [facility] [place] [facility] [address] [id number] [place] [address]- 1025 Feb, [facility] [place] [facility] [address] [id number] [place] [address]- 3550 Feb, [facility] [place] [facility] [address] [id number] [place] [address]- 0477 Feb, [facility] [place] [facility] [address] [id number] [place] [address]- 8123 Feb, [facility] [place] [facility] [address] [id number] [place] [address]- 8169 January, [facility] [place] [facility] [address] [id number] [place] [address]- 6795 January, [facility] [place] [facility] [address] [id number] [place] [address]- 4768 January, [facility] [place] [facility] [address] [id number] [place] [address]- 1027 January, [facility] [place] [facility] [address] [id number] [place] [address]- 6705 January, [facility] [place] [facility] [address] [id number] [place] [address]- 5396 January, [facility] [place] [facility] [address] [id number] [place] [address]- 3185 Nov, [facility] [place] [facility] [address] [id number] [place] [address]- 8438 Nov, [facility] [place] [facility] [address] [id number] [place] [address]- 3502 Nov, [facility] [place] [facility] [address] [id number] [place] [address]- 8267 Nov, [facility] [place] [facility] [address] [id number] [place] [address]- 3278 Oct, [facility] [place] [facility] [address] [id number] [place] [address]- 7207 Oct, [facility] [place] [facility] [address] [id number] [place] [address]- 8365 Sep, [facility] [place] [facility] [address] [id number] [place] [address]- 6369 Sep, [facility] [place] [facility] [address] [id number] [place] [address]- 9012 Sep, [facility] [place] [facility] [address] [id number] [place] [address]- 1153 Sep, [facility] [place] [facility] [address] [id number] [place] [address]- 6325 Sep, [facility] [place] [facility] [address] [id number] [place] [address] Aug, [facility] [place] [facility] [address] [id number] [place] [address] Aug, [facility] [place] [facility] [address] [id number] [place] [address] Jul, [facility] [place] [facility] [address] [id number] [place] [address] Jul, [facility] [place] [facility] [address] [id number] [place] [address] Jul, [facility] [place] [facility] [address] [id number] [place] [address] Jun, [facility] [address] [id number] [place] [address] Jun, [facility] [address] [id number] [place] [address] Jun, [facility] [address] [id number] [place] [address] Jun, [facility] [address] [id number] [place] [address] Apr, [facility] [address] [id number] [place] [address] Mar, [facility] [address] [id number] [place] [address] Mar, [facility] [address] [id number] [place] [address] January, [facility] [address] [id number] [place] [address] Dec, [facility] [address] [id number] [place] [address] Dec, [facility] [address] [id number] [place] [address] Nov, [facility] [address] [id number] [place] [address] Nov, [facility] [address] [id number] [place] [address] Nov, [facility] [address] [id number] [place] [address] 2012 [facility] [address] [id number] [place] [address] Nov, [facility] [address] [id number] [place] [address] Nov, [facility] [place] [facility] [address] [id number] [place] [address] Oct, [facility] [place] [facility] [address] [id number] [place] [address] Sep, [facility] [place] [facility] [address] [id number] [place] [address] Aug, [facility] [place] [facility] [address] [id number] [place] [address] Aug, [facility] [place] [facility] [address] [id number] [place] [address] Aug, [facility] [place] [facility] [address] [id number] [place] [address] Aug, [facility] [place] [facility] [address] [facility] [id number] [place] [address] Jul, [facility] [place] [facility] [address] [id number] [place] [address] Jul, [facility] [place] [facility] [address] [id number] [place] [address] Jun, [facility] [place] [facility] [address] [facility] [id number] [place] [address] Jun, [facility] [place] [facility] [address] [facility] [id number] [place] [address] Jun, [facility] [place] [facility] [address] [id number] [place] [address] 18 Jun, 2012 [facility] [place] [facility] [address] [id number] [place] [address] 21 May, 2012 [facility] [place] [facility] [address] [id number] [place] [address] 18 May, 2012 [facility] [place] [facility] [address] [facility] [id number] [place] [address] 14 May, 2012 [facility] [place] [facility] [address] [id number] [place] [address] 10 May, 2012 [facility] [address] [id number] [place] [address] May, [facility] [place] [facility] [address] [id number] [place] [address] Apr, [facility] [place] [facility] [address] [id number] [place] [address] Apr, [facility] [place] [facility] [address] [id number] [place] [address] Mar, [facility] [place] [facility] [address] [id number] [place] [address] Mar, [facility] [place] [facility] [address] [id number] [place] [address] Mar, [facility] [id number] [address] Feb, [facility] [place] [facility] [address] [address] [id number] [place] [address] January, [facility] [place] [facility] [address] [id number] [place] [address] Nov, [facility] [place] [facility] [address] [facility] [id number] [place] [address] Nov, [facility] [place] [facility] [address] [id number] [place] [address] Nov, [facility] [place] [facility] [address] [id number] [place] [address] Nov, [facility] [place] [facility] [address] [id number] [place] [address] Nov, [facility] [place] [facility] [address] [facility] [id number] [place] [address] Oct, [facility] [place] [facility] [address] [facility] [id number] [place] [address] Oct, [facility] [place] [facility] [address] [id number] [place] [address] Oct, [facility] [address] [id number] [place] [address] Oct, [facility] [address] [id number] [place] [address] Oct, [facility] [address] [id number] [place] [address] Sep, [facility] [address] [id number] [place] [address] Sep, [facility] [address] [id number] [place] [address] Sep, [facility] [address] [id number] [place] [address] Sep, [facility] [address] [id number] [place] [address] Sep, [facility] [address] [id number] [place] [address] Sep, [facility] [address] [id number] [place] [address] Sep, [facility] [address] [id number] [place] [address] Aug, [facility] [address] [id number] [place] [address] Aug, [facility] [address] [id number] [place] [address] Aug, [facility] [place] [facility] [address] [id number] [place] [address] Aug, [facility] [address] [id number] [place] [address] Aug, [facility] [address] [id number] [place] [address] 06 Aug, 2011 [facility] [place] [facility] [address] [id number] [place] [address] 25 Jun, 2011 [facility] [place] [facility] [address] [id number] [place] [address] 20 Jun, 2011 [facility] [place] [facility] [address] [id number] [place] [address] 14 Jun, 2011 [facility] [place] [facility] [address] [id number] [place] [address] 14 Jun, 2011 [facility] [place] [facility] [address] [id number] [place] [address] 16 Apr, 2011 [facility] [place] [facility] [address] [id number] [place] [address] Mar, [facility] [place] [facility] [address] [id number] [place] [address] Feb, [facility] [place] [facility] [address] [id number] [place] [address] Sep, [facility] [place] [facility] [address] [id number] [place] [address] Aug, [facility] [place] [facility] [address] [id number] [place] [address] Aug, [facility] [place] [facility] [address] [id number] [place] [address] Jul, [facility] [place] [facility] [address] [id number] [place] [address] Jul, [facility] [place] [facility] [address] [id number] [place] [address] Jul, [facility] [place] [facility] [address] [id number] [place] [address] Jun, [facility] [place] [facility] [address] [id number] [place] [address] Apr, [facility] [place] [facility] [address] [facility] [id number] [place] [address] 17 Oct, 2009 [facility] [address] [id number] [place] [address] Aug, [facility] [address] [id number] [place] [address] Jun, [facility] [address] [id number] [address] Feb, [facility] [address] [id number] [address] Aug, [facility] [address] [id number] [address] [address] Jun, [facility] [address] [id number] [address] Jun, IMMUNIZATIONS No Known Immunizations SOCIAL HISTORY [...]
--- OUTSIDE RECORDS SUMMARY | 2018-11-24 04:47 | XMS REPORT ---
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
--- OUTSIDE RECORDS SUMMARY | 2018-11-24 04:47 | XMS REPORT ---
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 Active 38009350 Problem Chronic pain syndrome G89.4 Active 36893015 Problem Portal vein thrombosis I81 Active 46046321 Problem Chronic hepatitis C without hepatic coma B18.2 Active 806419324 Problem Elevated platelet count D47.3 Active 076773256 Problem Other chronic pain G89.29 Active 63255177 Problem Major depressive disorder, recurrent, moderate F33.1 Active 89952349 Problem Urinary hesitancy R39.11 Active 2146544 Problem Gastroesophageal reflux disease, esophagitis presence not specified K21.9 Active [id number] ALLERGIES No Information ENCOUNTERS Encounter Location Date Diagnosis [facility] [id number] [place] [address] 69895- 4208 Sep, Chronic pain syndrome G89.4 [facility] [id number] [address] 2351 Sep, [facility] [id number] [place] [address] 04392- 8523 Sep, [facility] [id number] [place] [address] 92690- 2552 Sep, [facility] [id number] [place] [address] 91393- 9969 Sep, [facility] [id number] [place] [address] 87415- 1897 Sep, [facility] [id number] [place] [address] 31676- 6000 Sep, [facility] [id number] [place] [address] 58260- 8806 Aug, [facility] [id number] [place] [address] 57368- 8227 Aug, Portal vein thrombosis I81 ; Chronic pain syndrome G89.4 ; Other acute pulmonary embolism without acute cor pulmonale I26.99 and Chronic hepatitis C without hepatic coma B18.2 [facility] [id number] [place] [address] 17969- 0943 Aug, [facility] [id number] [place] [address] 99144- 2760 Aug, [facility] [id number] [place] [address] 37743- 3271 Jul, Major depressive disorder, recurrent, moderate F33.1 and Posttraumatic stress disorder F43.10 [facility] [id number] [place] [address] 65138- 1268 Jul, Gastroesophageal reflux disease, esophagitis presence not specified K21.9 [facility] [id number] [place] [address] 77507- 9849 Jun, [facility] [id number] [place] [address] 73454- 3442 Jun, [facility] [id number] [place] [address] 35505- 1332 Jun, Posttraumatic stress disorder F43.10 and 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 [facility] [id number] [place] [address] 89654- 1044 Apr, [facility] [id number] [place] [address] 52804- 2686 Apr, Mass of sinus R22.0 ; 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 and Elevated platelet count D47.3 [facility] [id number] [place] [address] 63658- 9510 Apr, 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 and Posttraumatic stress disorder F43.10 [facility] [id number] [place] [address] 24275- 9438 January, [facility] [id number] [place] [address] 70892- 7272 January, Posttraumatic stress disorder F43.10 and 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 [facility] [id number] [place] [address] 80971- 2970 Dec, 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 and Elevated platelet count D47.3 [facility] [id number] [place] [address] 75146- 8923 Dec, [facility] [id number] [place] [address] 53364- 4757 Dec, Low energy R53.83 ; 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 ; Gastroesophageal reflux disease, esophagitis presence not specified K21.9 and Urinary hesitancy R39.11 [facility] [id number] [place] [address] 18530- 8366 Dec, Posttraumatic stress disorder F43.10 and 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 [facility] [id number] [place] [address] 76809- 8799 Oct, [facility] [id number] [place] [address] 28767- 5587 Sep, Mass of sinus R22.0 [facility] [id number] [place] [address] 63463- 8671 Sep, Dysuria R30.0 ; Low back pain M54.5 ; Other chronic pain G89.29 ; Poor nutrition E63.9 ; Gastroesophageal reflux disease, esophagitis presence not specified K21.9 and Mass of sinus R22.0 [facility] [id number] [place] [address] 70907- 5437 Sep, Posttraumatic stress disorder F43.10 and 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 [facility] [address] 15187- 9401 Sep, [facility] [address] 90406- 2658 Aug, [facility] [address] 09931- 0958 Aug, Encounter for immunization Z23 [facility] [address] 62820- 9137 Jul, Posttraumatic stress disorder F43.10 ; 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 and Major depressive disorder, recurrent, moderate F33.1 [facility] [id number] [place] [address] 39105- 3183 Jun, [facility] [id number] [place] [address] 34062- 2342 Jun, [facility] [id number] [place] [address] 74592- 2112 May, [facility] [id number] [place] [address] 88058- 1582 Apr, [facility] [id number] [place] [address] 91124- 9772 Apr, Posttraumatic stress disorder F43.10 and 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 [facility] [id number] [place] [address] 58645- 6508 Mar, [facility] [address] 55296- 7764 Feb, [facility] [address] [address]- 9999 January, [facility] [id number] [place] [address] 30017- 4517 January, Posttraumatic stress disorder F43.10 and 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 [facility] [id number] [place] [address] 11024- 6910 Dec, [facility] [id number] [place] [address] 61374- 7527 Nov, [facility] [id number] [place] [address] 59004- 8957 Nov, [facility] [id number] [place] [address] 17382- 6219 Oct, Posttraumatic stress disorder F43.10 and 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 [facility] [id number] [place] [address] 65256- 3516 Sep, Encounter for immunization Z23 ; Posttraumatic stress disorder F43.10 and 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 [facility] [id number] [place] [address] 70451- 9152 Aug, [facility] [id number] [place] [address] 28768- 6439 Aug, [facility] [id number] [place] [address] 14060- 1746 Jul, Encounter for immunization Z23 ; Posttraumatic stress disorder F43.10 and 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 [facility] [id number] [place] [address] 03145- 4563 Jun, [facility] [id number] [place] [address] 86280- 3727 Jun, Mass of sinus R22.0 ; Low back pain M54.5 and Paroxysmal atrial fibrillation I48.0 [facility] [address] [facility] [id number] [address]- 9944 May, [facility] [address] 2668 Apr, Posttraumatic stress disorder 309.81 and Major depressive disorder, recurrent episode, moderate 296.32 [facility] [address] [address]- 0409 Apr, [facility] [address] [facility] [id number] 9934 Mar, Major depressive disorder, recurrent episode, moderate 296.32 and Posttraumatic stress disorder 309.81 [facility] [id number] [place] [address] 331950- 7114 Feb, [facility] [id number] [address]- 2589 Feb, [facility] [id number] [address]- 4563 January, [facility] [address] [address]- 5176 January, [facility] [address] 2782 January, [facility] [address] [address]- 3790 Dec, [facility] [address] [address]- 5414 Dec, [facility] [id number] 1453 Nov, [facility] [address] [address]- 9815 Nov, [facility] [id number] [address]- 1037 Nov, [facility] [id number] [place] [address], [place] [address]- 7687 06 Nov, 2014 [facility] [place] [facility] [address] [id number] [place] [address]- 2920 04 Nov, 2014 [facility] [place] [facility] [address] [id number] [place] [address]- 5326 04 Nov, 2014 [facility] [place] [facility] [address] [id number] [place] [address]- 3013 Nov, 2014 [facility] [place] [facility] [address] [id number] [place] [address]- 0873 Nov, 2014 [facility] [place] [facility] [address] [id number] [place] [address]- 2484 Oct, 2014 [facility] [place] [facility] [address] [id number] [place] [address]- 5289 Oct, 2014 [facility] [place] [facility] [address] [id number] [place] [address]- 9327 16 Oct, 2014 [facility] [place] [facility] [address] [id number] [place] [address]- 4874 16 Oct, 2014 [facility] [place] [facility] [address] [id number] [place] [address]- 9236 16 Oct, 2014 [facility] [place] [facility] [address] [facility] [id number] [place] [address]- 0235 16 Oct, 2014 [facility] [place] [facility] [address] [id number] [place] [address]- 4918 Oct, 2014 [facility] [place] [facility] [address] [id number] [place] [address]- 2117 06 Oct, 2014 [facility] [place] [facility] [address] [id number] [place] [address]- 0900 Oct, 2014 [facility] [place] [facility] [address] [facility] [id number] [place] [address]- 2568 Oct, 2014 [facility] [place] [facility] [address] [facility] [id number] [place] [address]- 4941 Oct, 2014 [facility] [place] [facility] [address] [id number] [place] [address]- 8424 Oct, 2014 [facility] [place] [facility] [address] [id number] [place] [address]- 8422 Oct, 2014 [facility] [place] [facility] [address] [facility] [id number] [place] [address]- 9476 Oct, 2014 [facility] [place] [facility] [address] [id number] [place] [address]- 8313 Oct, 2014 [facility] [place] [facility] [address] [id number] [place] [address]- 7029 Oct, 2014 [facility] [place] [facility] [address] [facility] [id number] [place] [address]- 2239 Sep, [facility] [place] [facility] [address] [facility] [id number] [place] [address]- 0392 Sep, [facility] [place] [facility] [address] [facility] [id number] [place] [address]- 8179 Sep, [facility] [place] [facility] [address] [facility] [id number] [place] [address]- 8548 Sep, [facility] [place] [facility] [address] [facility] [id number] [place] [address]- 5155 Aug, [facility] [place] [facility] [address] [facility] [id number] [place] [address]- 0308 Aug, [facility] [place] [facility] [address] [facility] [id number] [place] [address]- 2026 Aug, [facility] [place] [facility] [address] [id number] [place] [address]- 4508 Aug, [facility] [place] [facility] [address] [facility] [id number] [place] [address]- 4170 Aug, [facility] [place] [facility] [address] [facility] [id number] [place] [address]- 1186 Aug, [facility] [place] [facility] [address] [id number] [place] [address]- 7943 Aug, [facility] [place] [facility] [address] [id number] [place] [address]- 9069 Aug, [facility] [place] [facility] [address] [id number] [place] 7078 Aug, [facility] [place] [facility] [address] [id number] [place] 6207 Aug, [facility] [place] [facility] [address] [id number] [place] 7896 Aug, [facility] [place] [facility] [address] [id number] [place] 5075 Aug, [facility] [place] [facility] [address] [id number] [place] [address]- 3026 Aug, [facility] [place] [facility] [address] [id number] [place] [address]- 0319 Aug, [facility] [place] [facility] [address] [id number] [place] [address]- 6593 Aug, [facility] [place] [facility] [address] [id number] [place] [address]- 8339 Aug, [facility] [place] [facility] [address] [id number] [place] [address]- 0695 Jul, [facility] [place] [facility] [address] [id number] [place] [address]- 2955 Jul, [facility] [place] [facility] [address] [id number] [place] [address]- 2284 Jul, [facility] [place] [facility] [address] [id number] [place] [address]- 7756 Jul, [facility] [place] [facility] [address] [id number] [place] [address]- 5496 Jul, [facility] [place] [facility] [address] [id number] [place] [address]- 8160 Jul, [facility] [place] [facility] [address] [id number] [place] [address]- 5751 Jun, [facility] [place] [facility] [address] [id number] [place] [address]- 2988 Jun, [facility] [place] [facility] [address] [id number] [place] [address]- 2683 Jun, [facility] [place] [facility] [address] [id number] [place] [address]- 1757 Jun, [facility] [place] [facility] [address] [id number] [place] [address]- 3259 Jun, [facility] [place] [facility] [address] [id number] [place] [address]- 1913 Jun, [facility] [place] [facility] [address] [id number] [place] [address]- 7271 Jun, [facility] [place] [facility] [address] [id number], [place] [address]- 8165 Jun, [facility] [place] [facility] [address] [id number] [place] [address]- 2733 Jun, [facility] [place] [facility] [address] [id number], [place] [address]- 1183 Jun, [facility] [place] [facility] [address] [id number], [place] [address]- 2196 Jun, [facility] [place] [facility] [address] [id number], [place] [address]- 8981 Jun, [facility] [place] [facility] [address] [id number] [place] [address]- 4015 Jun, [facility] [place] [facility] [address] [id number], [place] [address]- 8747 Jun, [facility] [place] [facility] [address] [id number] [place] [address]- 0666 16 May, 2014 [facility] [place] [facility] [address] [id number] [place] [address]- 1258 May, [facility] [place] [facility] [address] [id number] [place] [address]- 2316 May, [facility] [place] [facility] [address] [id number] [place] [address]- 6354 May, [facility] [place] [facility] [address] [id number] [place] [address]- 1325 Apr, [facility] [place] [facility] [address] [id number] [place] [address]- 0678 Apr, [facility] [place] [facility] [address] [id number] [place] [address]- 5426 Apr, [facility] [place] [facility] [address] [id number] [place] [address]- 9379 Apr, [facility] [place] [facility] [address] [id number] [place] [address]- 9315 Mar, [facility] [place] [facility] [address] [id number] [place] [address]- 6161 Mar, [facility] [place] [facility] [address] [id number] [place] [address]- 2549 Mar, [facility] [place] [facility] [address] [id number] [place] [address]- 0623 Mar, [facility] [place] [facility] [address] [id number] [place] [address]- 1133 Mar, [facility] [place] [facility] [address] [id number] [place] [address]- 7506 Mar, [facility] [place] [facility] [address] [id number] [place] [address]- 6370 Mar, [facility] [place] [facility] [address] [id number] [place] [address]- 6774 Mar, [facility] [place] [facility] [address] [id number] [place] [address]- 7862 Mar, [facility] [place] [facility] [address] [id number] [place] [address]- 2632 Mar, [facility] [place] [facility] [address] [id number] [place] [address]- 8543 Mar, [facility] [place] [facility] [address] [id number] [place] [address]- 3420 Mar, [facility] [place] [facility] [address] [id number] [place] [address]- 2891 Feb, [facility] [place] [facility] [address] [id number] [place] [address]- 8103 Feb, [facility] [place] [facility] [address] [id number] [place] [address]- 8355 Feb, [facility] [place] [facility] [address] [id number] [place] [address]- 8537 Feb, [facility] [place] [facility] [address] [id number] [place] [address]- 7209 Feb, [facility] [place] [facility] [address] [id number] [place] [address]- 9686 Feb, [facility] [place] [facility] [address] [id number] [place] [address]- 3116 January, [facility] [place] [facility] [address] [id number] [place] [address]- 3645 January, [facility] [place] [facility] [address] [id number] [place] [address]- 0247 January, [facility] [place] [facility] [address] [id number] [place] [address]- 8888 January, [facility] [place] [facility] [address] [id number] [place] [address]- 8844 January, [facility] [place] [facility] [address] [id number] [place] [address]- 1667 January, [facility] [place] [facility] [address] [id number] [place] [address]- 1766 Nov, [facility] [place] [facility] [address] [id number] [place] [address]- 0379 Nov, [facility] [place] [facility] [address] [id number] [place] [address]- 6713 Nov, [facility] [place] [facility] [address] [id number] [place] [address]- 2714 Nov, [facility] [place] [facility] [address] [id number] [place] [address]- 2361 Oct, [facility] [place] [facility] [address] [id number] [place] [address]- 7166 Oct, [facility] [place] [facility] [address] [id number] [place] [address]- 5516 Sep, [facility] [place] [facility] [address] [id number] [place] [address]- 7870 Sep, [facility] [place] [facility] [address] [id number] [place] [address]- 6422 Sep, [facility] [place] [facility] [address] [id number] [place] [address]- 0790 Sep, [facility] [place] [facility] [address] [id number] [place] [address] Sep, [facility] [place] [facility] [address] [id number] [place] [address] Aug, [facility] [place] [facility] [address] [id number] [place] [address] Aug, [facility] [place] [facility] [address] [id number] [place] [address] Jul, [facility] [place] [facility] [address] [id number] [place] [address] Jul, [facility] [place] [facility] [address] [id number] [place] [address] Jul, [facility] [place] [facility] [address] [id number] [place] [address] Jun, [facility] [address] [id number] [place] [address] Jun, [facility] [address] [id number] [place] [address] Jun, [facility] [address] [id number] [place] [address] Jun, [facility] [address] [id number] [place] [address] Apr, [facility] [address] [id number] [place] [address] Mar, [facility] [address] [id number] [place] [address] Mar, [facility] [address] [id number] [place] [address] January[facility] [address] [id number] [place] [address] Dec, [facility] [address] [id number] [place] [address] Dec, [facility] [address] [id number] [place] [address] Nov, [facility] [address] [id number] [place] [address] Nov, [facility] [address] [id number] [place] [address] Nov, [facility] [place] [facility] [address] [id number] [place] [address] 2012 [facility] [address] [id number] [place] [address] Nov, [facility] [address] [id number] [place] [address] Nov, [facility] [place] [facility] [address] [id number] [place] [address] Oct, [facility] [place] [facility] [address] [id number] [place] [address] Sep, [facility] [place] [facility] [address] [id number] [place] [address] Aug, [facility] [place] [facility] [address] [id number] [place] [address] Aug, [facility] [place] [facility] [address] [id number] [place] [address] Aug, [facility] [place] [facility] [address] [id number] [place] [address] Aug, [facility] [place] [facility] [address] [id number] [place] [address] Jul, [facility] [place] [facility] [address] [id number] [place] [address] Jul, [facility] [place] [facility] [address] [id number] [place] [address] Jun, [facility] [place] [facility] [address] [facility] [id number] [place] [address] Jun, [facility] [place] [facility] [address] [id number] [place] [address] Jun, [facility] [place] [facility] [address] [id number] [address] 18 Jun, 2012 [facility] [place] [facility] [address] [id number] [place] [address] 21 May, 2012 [facility] [place] [facility] [address] [id number] [place] [address] 18 May, 2012 [facility] [place] [facility] [address] [id number] [place] [address] 14 May, 2012 [facility] [place] [facility] [address] [id number] [place] [address] 10 May, 2012 [facility] [place] [facility] [address] [id number] [place] [address] May, [facility] [place] [facility] [address] [id number] [place] [address] Apr, [facility] [place] [facility] [address] [id number] [place] [address] 25[address] Apr, [facility] [place] [facility] [address] [id number] [place] [address] Mar, [facility] [place] [facility] [address] [id number] [place] [address] Mar, [facility] [place] [facility] [address] [id number] [place] [address] Mar, [facility] [address] [id number] [place] [address] Feb, [facility] [place] [facility] [address] [id number] [place] [address] January, [facility] [place] [facility] [address] [id number] [place] [address] Nov, [facility] [place] [facility] [address] [id number] [place] [address] Nov, [facility] [place] [facility] [address] [id number] [place] [address]- [address] Nov, [facility] [place] [facility] [address] [id number] [place] [address] Nov, [facility] [place] [facility] [address] [id number] [place] [address] Nov, [facility] [place] [facility] [address] [id number] [place] [address] Oct, [facility] [place] [facility] [address] [id number] [place] [address] Oct, [facility] [place] [facility] [address] [id number] [place] [address] Oct, [facility] [address] [id number] [place] [address] Oct, [facility] [address] [id number] [place] [address] Oct, [facility] [address] [id number] [place] [address] Sep, [facility] [address] [id number] [place] [address] Sep, [facility] [address] [id number] [place] [address] Sep, [facility] [address] [id number] [place] [address] Sep, [facility] [address] [id number] [place] [address] Sep, [facility] [address] [id number] [place] [address] Sep, [facility] [address] [id number] [place] [address] Sep, [facility] [address] [id number] [place] [address] Aug, [facility] [address] [id number] [place] [address] Aug, [facility] [place] [facility] [address] [id number] [place] [address] Aug, [facility] [place] [facility] [address] [id number] [place] [address] Aug, [facility] [place] [facility] [address] [id number] [place] [address] Aug, [facility] [address] [id number], [place] [address] 06 Aug, 2011 [facility] [place] [facility] [address] [id number] [place] [address] 25 Jun, 2011 [facility] [place] [facility] [address] [id number] [place] [address] 20 Jun, 2011 [facility] [place] [facility] [address] [id number] [place] [address] 14 Jun, 2011 [facility] [place] [facility] [address] [id number] [place] [address] 14 Jun, 2011 [facility] [place] [facility] [address] [id number] [place] [address] 16 Apr, 2011 [facility] [place] [facility] [address] [id number] [place] [address] Mar, [facility] [place] [facility] [address] [id number] [place] [address] Feb, [facility] [place] [facility] [address] [id number] [place] [address] Sep, [facility] [place] [facility] [address] [id number] [place] [address] Aug, [facility] [place] [facility] [address] [id number] [place] [address] Aug, [facility] [place] [facility] [address] [id number], [place] [address] Jul, [facility] [place] [facility] [address] [id number] [place] [address] Jul, [facility] [place] [facility] [address] [id number] [place] [address] Jul, [facility] [place] [facility] [address] [id number] [place] [address] Jun, [facility] [place] [facility] [address] [id number] [place] [address] Apr, [facility] [place] [facility] [address] [facility] [id number], [place] [address] 17 Oct, 2009 [facility] [address] [id number], [place] [address] Aug, [facility] [address] [id number], [place] [address] 30 Jun, 2009 [facility] [address] [id number], [place] [address] Feb, [facility] [id number] [address] Aug, [facility] [id number] [address] Jun, [facility] [address] [id number], [place] [address] Jun, IMMUNIZATIONS No Known Immunizations SOCIAL HISTORY Never Assessed REASON FOR VISIT xanax refill PLAN OF CARE VITAL SIGNS MEDICATIONS Medication Instructions Dosage Frequency Start Date End Date Duration Status Xanax 1 mg TAKE ONE TABLET BY MOUTH THREE TIMES DAILY 30 Active RESULTS No Results PROCEDURES No [...]
--- OUTSIDE RECORDS SUMMARY | 2018-11-24 04:47 | XMS REPORT ---
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 Active 17320641 Problem Chronic pain syndrome G89.4 Active 46206489 Problem Portal vein thrombosis I81 Active 52837158 Problem Chronic hepatitis C without hepatic coma B18.2 Active 172203139 Problem Elevated platelet count D47.3 Active 581570434 Problem Other chronic pain G89.29 Active 76021952 Problem Major depressive disorder, recurrent, moderate F33.1 Active 33015300 Problem Urinary hesitancy R39.11 Active 2492904 Problem Gastroesophageal reflux disease, esophagitis presence not specified K21.9 Active 661207041 ALLERGIES No Information ENCOUNTERS Encounter Location Date Diagnosis [facility] [id number] [place] [address] 37788- 3390 Sep, Chronic pain syndrome G89.4 [facility] [address] [address] 7682 Sep, [facility] [id number] [place] [address] 47333- 2961 Sep, [facility] [id number] [place] [address] 82172- 1886 Sep, [facility] [id number] [place] [address] 41789- 2410 Sep, [facility] [id number] [place] [address] 62596- 9530 Sep, [facility] [id number] [place] [address] 13702- 8094 Sep, [facility] [id number] [place] [address] 50333- 7817 Aug, [facility] [id number] [place] [address] 64836- 4899 Aug, Portal vein thrombosis I81 ; Chronic pain syndrome G89.4 ; Other acute pulmonary embolism without acute cor pulmonale I26.99 and Chronic hepatitis C without hepatic coma B18.2 [facility] [id number] [place] [address] 93064- 7235 Aug, [facility] [id number] [place] [address] 88474- 2539 Aug, [facility] [id number] [place] [address] 60321- 9558 Jul, Major depressive disorder, recurrent, moderate F33.1 and Posttraumatic stress disorder F43.10 [facility] [id number] [place] [address] 76350- 0469 Jul, Gastroesophageal reflux disease, esophagitis presence not specified K21.9 [facility] [id number] [place] [address] 59042- 4848 Jun, [facility] [id number] [place] [address] 61068- 8342 Jun, [facility] [id number] [place] [address] 60886- 6701 Jun, Posttraumatic stress disorder F43.10 and 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 [facility] [id number] [place] [address] 50292- 7404 Apr, [facility] [id number] [place] [address] 06779- 6835 Apr, Mass of sinus R22.0 ; 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 and Elevated platelet count D47.3 [facility] [id number] [place] [address] 30247- 3234 Apr, 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 and Posttraumatic stress disorder F43.10 [facility] [id number] [place] [address] 08527- 1533 January, [facility] [id number] [place] [address] 50876- 6415 January, Posttraumatic stress disorder F43.10 and 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 [facility] [id number] [place] [address] 68359- 4676 Dec, 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 and Elevated platelet count D47.3 [facility] [id number] [place] [address] 51166- 1245 Dec, [facility] [id number] [place] [address] 84074- 3315 Dec, Low energy R53.83 ; 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 ; Gastroesophageal reflux disease, esophagitis presence not specified K21.9 and Urinary hesitancy R39.11 [facility] [id number] [place] [address] 14039- 7996 Dec, Posttraumatic stress disorder F43.10 and 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 [facility] [id number] [place] [address] 93476- 4069 Oct, [facility] [id number] [place] [address] 35393- 7702 Sep, Mass of sinus R22.0 [facility] [id number] [place] [address] 14455- 9742 Sep, Dysuria R30.0 ; Low back pain M54.5 ; Other chronic pain G89.29 ; Poor nutrition E63.9 ; Gastroesophageal reflux disease, esophagitis presence not specified K21.9 and Mass of sinus R22.0 [facility] [id number] [place] [address] 67111- 2759 Sep, Posttraumatic stress disorder F43.10 and 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 [facility] [address] 81150- 7508 Sep, [facility] [address] 27963- 2170 Aug, [facility] [address] 71143- 9682 Aug, Encounter for immunization Z23 [facility] [address] 49648- 9326 Jul, Posttraumatic stress disorder F43.10 ; 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 and Major depressive disorder, recurrent, moderate F33.1 [facility] [id number] [place] [address] 82553- 9279 Jun, [facility] [id number] [place] [address] 29084- 2178 Jun, [facility] [id number] [place] [address] 45578- 1876 May, [facility] [id number] [place] [address] 95008- 7129 Apr, [facility] [id number] [place] [address] 39605- 9429 Apr, Posttraumatic stress disorder F43.10 and 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 [facility] [id number] [place] [address] 37240- 3181 Mar, [facility] [address] 88965- 7238 Feb, [facility] [address], [place] [address]- 7842 January, [facility] [id number] [place] [address] 40861- 9829 January, Posttraumatic stress disorder F43.10 and 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 [facility] [id number] [place] [address] 24876- 3935 Dec, [facility] [id number] [place] [address] 68239- 5248 Nov, [facility] [id number] [place] [address] 86460- 2880 Nov, [facility] [id number] [place] [address] 12166- 3506 Oct, Posttraumatic stress disorder F43.10 and 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 [facility] [id number] [place] [address] 96963- 6023 Sep, Encounter for immunization Z23 ; Posttraumatic stress disorder F43.10 and 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 [facility] [address] [place] [address] 93859- 1903 Aug, [facility] [address], [place] [address]- 2934 Aug, [facility] [address] [place] [address] 07921- 3328 Jul, Encounter for immunization Z23 ; Posttraumatic stress disorder F43.10 and 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 [facility] [id number] [place] [address] 43735- 5959 Jun, [facility] [address] [place] [address] 46968- 3516 Jun, Mass of sinus R22.0 ; Low back pain M54.5 and Paroxysmal atrial fibrillation I48.0 [facility] [address] [facility] [id number] [address]- 2542 May, [facility] [id number] [place] [address] 976132- 9762 Apr, Posttraumatic stress disorder 309.81 and Major depressive disorder, recurrent episode, moderate 296.32 [facility] [id number] [place] [address] 75478- 4134 Apr, [facility] [address] [facility] [id number] 0748 Mar, Major depressive disorder, recurrent episode, moderate 296.32 and Posttraumatic stress disorder 309.81 [facility] [id number] [place] [address] 402124- 8389 Feb, [facility] [address], [place] [address]- 6999 Feb, [facility] [id number] [address]- 8207 January, [facility] [address], [place] [address]- 5476 January, [facility] [address] 1947 January, [facility] [address], [place] [address]- 0630 Dec, [facility] [address], [place] [address]- 5894 Dec, [facility] [address] 9426 Nov, [facility] [address] 7604 Nov, [facility] [address] [address]- 1372 Nov, [facility] [id number] [place] [address] [place] [address]- 6469 06 Nov, 2014 [facility] [place] [facility] [address] [id number] [place] [address]- 1769 Nov, 2014 [facility] [place] [facility] [address] [id number] [place] [address]- 6169 Nov, 2014 [facility] [place] [facility] [address] [id number] [place] [address]- 2910 Nov, 2014 [facility] [place] [facility] [address] [id number] [place] [address]- 5824 Nov, 2014 [facility] [place] [facility] [address] [id number] [place] [address]- 8532 Oct, 2014 [facility] [place] [facility] [address] [id number] [place] [address]- 3885 Oct, 2014 [facility] [place] [facility] [address] [id number] [place] [address]- 5286 16 Oct, 2014 [facility] [place] [facility] [address] [id number] [place] [address]- 2981 16 Oct, 2014 [facility] [place] [facility] [address] [id number] [place] [address]- 6259 16 Oct, 2014 [facility] [place] [facility] [address] [id number] [place] [address]- 7939 16 Oct, 2014 [facility] [place] [facility] [address] [id number] [place] [address]- 7228 Oct, 2014 [facility] [place] [facility] [address] [id number] [place] [address]- 2717 Oct, 2014 [facility] [place] [facility] [address] [id number] [place] [address]- 2001 Oct, 2014 [facility] [place] [facility] [address] [id number] [place] [address]- 0399 06 Oct, 2014 [facility] [place] [facility] [address] [id number] [place] [address]- 0191 Oct, 2014 [facility] [place] [facility] [address] [id number] [place] [address]- 2567 Oct, 2014 [facility] [place] [facility] [address] [id number] [place] [address]- 6153 Oct, 2014 [facility] [place] [facility] [address] [id number] [place] [address]- 3691 Oct, 2014 [facility] [place] [facility] [address] [id number] [place] [address]- 9960 Oct, 2014 [facility] [place] [facility] [address] [id number] [place] [address]- 0523 Oct, 2014 [facility] [place] [facility] [address] [id number] [place] [address]- 1493 Sep, [facility] [place] [facility] [address] [facility] [id number] [place] [address]- 3318 Sep, [facility] [place] [facility] [address] [id number] [place] [address]- 0460 Sep, [facility] [place] [facility] [address] [id number] [place] [address]- 4070 Sep, [facility] [place] [facility] [address] [facility] [id number] [place] [address]- 7635 Aug, [facility] [place] [facility] [address] [id number] [place] [address]- 6511 Aug, [facility] [place] [facility] [address] [id number] [place] [address]- 2572 Aug, [facility] [place] [facility] [address] [id number] [place] [address]- 2834 Aug, [facility] [place] [facility] [address] [id number] [place] [address]- 2462 Aug, [facility] [place] [facility] [address] [facility] [id number] [place] [address]- 1040 Aug, [facility] [place] [facility] [address] [id number] [place] [address]- 4806 Aug, [facility] [place] [facility] [address] [id number] [place]- 3324 Aug, [facility] [place] [facility] [address] [id number] [place] 2837 Aug, [facility] [place] [facility] [address] [id number] [place] 6575 Aug, [facility] [place] [facility] [address] [id number] [place] [address]- 0666 Aug, [facility] [place] [facility] [address] [id number] [place] 0979 Aug, [facility] [place] [facility] [address] [id number] [place] [address]- 2029 Aug, [facility] [place] [facility] [address] [id number] [place] [address]- 2734 Aug, [facility] [place] [facility] [address] [id number] [place] [address]- 8384 Aug, [facility] [place] [facility] [address] [id number] [place] [address]- 6278 Aug, [facility] [place] [facility] [address] [id number] [place] [address]- 9778 Jul, [facility] [place] [facility] [address] [id number] [place] [address]- 1167 Jul, [facility] [place] [facility] [address] [id number] [place] [address]- 6362 Jul, [facility] [place] [facility] [address] [id number] [place] [address]- 9214 Jul, [facility] [place] [facility] [address] [id number] [place] [address]- 5625 Jul, [facility] [place] [facility] [address] [id number] [place] [address]- 2656 Jul, [facility] [place] [facility] [address] [id number] [place] [address]- 9727 Jun, [facility] [place] [facility] [address] [id number] [place] [address]- 9532 Jun, [facility] [place] [facility] [address] [id number] [place] [address]- 4527 Jun, [facility] [place] [facility] [address] [id number] [place] [address]- 5123 Jun, [facility] [place] [facility] [address] [id number] [place] [address]- 6786 Jun, [facility] [place] [facility] [address] [id number] [place] [address]- 7472 Jun, [facility] [place] [facility] [address] [id number] [place] [address]- 8319 Jun, [facility] [place] [facility] [address] [id number] [place] [address]- 8378 Jun, [facility] [place] [facility] [address] [id number] [place] [address]- 7553 Jun, [facility] [place] [facility] [address] [id number] [place] [address]- 5915 Jun, [facility] [place] [facility] [address] [id number], [place] [address]- 9371 Jun, [facility] [place] [facility] [address] [id number], [place] [address]- 7227 Jun, [facility] [place] [facility] [address] [id number] [place] [address]- 8446 Jun, [facility] [place] [facility] [address] [id number] [place] [address]- 1356 Jun, [facility] [place] [facility] [address] [id number] [place] 6243 16 May, 2014 [facility] [place] [facility] [address] [id number] [place] [address]- 4853 May, [facility] [place] [facility] [address] [id number] [place] [address]- 2958 May, [facility] [place] [facility] [address] [id number] [place] [address]- 9578 May, [facility] [place] [facility] [address] [id number] [place] [address]- 4088 Apr, [facility] [place] [facility] [address] [id number] [place] [address]- 3694 Apr, [facility] [place] [facility] [address] [id number] [place] [address]- 0128 Apr, [facility] [place] [facility] [address] [id number] [place] [address]- 3148 Apr, [facility] [place] [facility] [address] [id number] [place] [address]- 0843 Mar, [facility] [place] [facility] [address] [id number] [place] [address]- 0440 Mar, [facility] [place] [facility] [address] [id number] [place] [address]- 2476 Mar, [facility] [place] [facility] [address] [id number] [place] [address]- 4922 Mar, [facility] [place] [facility] [address] [id number] [place] [address]- 7055 Mar, [facility] [place] [facility] [address] [id number] [place] [address]- 9940 Mar, [facility] [place] [facility] [address] [id number] [place] [address]- 6954 Mar, [facility] [place] [facility] [address] [id number] [place] [address]- 4778 Mar, [facility] [place] [facility] [address] [id number] [place] [address]- 0252 Mar, [facility] [place] [facility] [address] [id number] [place] [address]- 4579 Mar, [facility] [place] [facility] [address] [id number] [place] [address]- 2314 Mar, [facility] [place] [facility] [address] [id number] [place] [address]- 6245 Mar, [facility] [place] [facility] [address] [id number] [place] [address]- 8293 Feb, [facility] [place] [facility] [address] [id number] [place] [address]- 3307 Feb, [facility] [place] [facility] [address] [id number] [place] [address]- 7135 Feb, [facility] [place] [facility] [address] [id number] [place] [address]- 8702 Feb, [facility] [place] [facility] [address] [id number] [place] [address]- 1792 Feb, [facility] [place] [facility] [address] [id number] [place] [address]- 6800 Feb, [facility] [place] [facility] [address] [id number] [place] [address]- 0088 January, [facility] [place] [facility] [address] [id number] [place] [address]- 1116 January, [facility] [place] [facility] [address] [id number] [place] [address]- 7796 January, [facility] [place] [facility] [address] [id number] [place] [address]- 6728 January, [facility] [place] [facility] [address] [id number] [place] [address]- 0303 January, [facility] [place] [facility] [address] [id number] [place] [address]- 1144 January, [facility] [place] [facility] [address] [id number] [place] [address]- 8696 Nov, [facility] [place] [facility] [address] [id number] [place] [address] Nov, [facility] [place] [facility] [address] [id number] [place] [address] Nov, [facility] [place] [facility] [address] [id number] [place] [address] Nov, [facility] [place] [facility] [address] [id number] [place] [address] Oct, [facility] [place] [facility] [address] [id number] [place] [address] Oct, [facility] [place] [facility] [address] [id number] [place] [address] Sep, [facility] [place] [facility] [address] [id number] [place] [address] Sep, [facility] [place] [facility] [address] [id number] [place] [address] Sep, [facility] [place] [facility] [address] [id number] [place] [address] Sep, [facility] [place] [facility] [address] [id number] [place] [address] Sep, [facility] [place] [facility] [address] [id number], [place] [address] Aug, [facility] [place] [facility] [address] [id number], [place] [address] Aug, [facility] [place] [facility] [address] [id number] [place] [address] Jul, [facility] [place] [facility] [address] [id number] [place] [address] Jul, [facility] [place] [facility] [address] [id number] [place] [address] Jul, [facility] [place] [facility] [address] [id number] [place] [address] Jun, [facility] [address] [id number] [place] [address] Jun, [facility] [address] [id number] [place] [address] Jun, [facility] [address] [id number] [place] [address] Jun, [facility] [address] [id number] [place] [address] Apr, [facility] [address] [id number] [place] [address] Mar, [facility] [address] [id number] [place] [address] Mar, [facility] [address] [id number] [place] [address] January, [facility] [address] [id number] [place] [address] Dec, [facility] [address] [id number] [place] [address] Dec, [facility] [address] [id number] [place] [address] Nov, [facility] [address] [id number] [place] [address] Nov, [facility] [address] [id number] [place] [address] Nov, [facility] [facility] [address] [id number] [place] [address] 2012 [facility] [place] [facility] [address] [id number] [place] [address] Nov, [facility] [address] [id number] [place] [address] Nov, [facility] [place] [facility] [address] [id number] [place] [address] Oct, [facility] [place] [facility] [address] [id number] [place] [address] Sep, [facility] [place] [facility] [address] [id number] [place] [address] Aug, [facility] [place] [facility] [address] [id number] [place] [address] Aug, [facility] [place] [facility] [address] [id number] [place] [address] Aug, [facility] [place] [facility] [address] [id number] [place] [address] Aug, [facility] [place] [facility] [address] [facility] [id number] [place] [address] Jul, [facility] [place] [facility] [address] [id number], [place] [address] Jul, [facility] [place] [facility] [address] [id number] [place] [address] Jun, [facility] [place] [facility] [address] [facility] [id number], [place] [address] Jun, [facility] [place] [facility] [address] [facility] [id number], [place] [address] Jun, [facility] [place] [facility] [address] [id number], [place] [address] 18 Jun, 2012 [facility] [place] [facility] [address] [address] [id number], [place] [address] 21 May, 2012 [facility] [place] [facility] [address] [id number], [place] [address] 18 May, 2012 [facility] [place] [facility] [address] [facility] [id number], [place] [address] 14 May, 2012 [facility] [place] [facility] [address] [id number], [place] [address] 10 May, 2012 [facility] [address] [id number] [place] [address] May, [facility] [place] [facility] [address] [id number] [place] [address] Apr, [facility] [place] [facility] [address] [id number] [place] [address] Apr, [facility] [place] [facility] [address] [id number] [place] [address] Mar, [facility] [place] [facility] [address] [id number] [place] [address] Mar, [facility] [place] [facility] [address] [id number] [place] [address] 25[address] Mar, [facility] [address] [id number] [place] [address] Feb, [facility] [place] [facility] [address] [id number] [place] [address] January, [facility] [place] [facility] [address] [id number] [place] [address] Nov, [facility] [place] [facility] [address] [facility] [id number] [place] [address] Nov, [facility] [place] [facility] [address] [id number] [place] [address] Nov, [facility] [place] [facility] [address] [id number] [place] [address] Nov, [facility] [place] [facility] [address] [id number] [place] [address] Nov, [facility] [place] [facility] [address] [facility] [id number] [place] [address] Oct, [facility] [place] [facility] [address] [facility] [id number] [place] [address] Oct, [facility] [place] [facility] [address] [id number] [place] [address] Oct, [facility] [address] [id number] [place] [address] Oct, [facility] [facility] [address] [id number] [place] [address] Oct, [facility] [facility] [address] [id number] [place] [address] Sep, [facility] [facility] [address] [id number] [place] [address] Sep, [facility] [facility] [address] [id number] [place] [address] Sep, [facility] [address] [id number] [place] [address] Sep, [facility] [address] [id number] [place] [address] Sep, [facility] [address] [id number] [place] [address] 5038 Sep, [facility] [address] [id number] [place] [address] Sep, [facility] [address] [id number] [place] [address] Aug, [facility] [address] [id number] [place] [address] Aug, [facility] [address] [id number] [place] [address] Aug, [facility] [place] [facility] [address] [id number] [place] [address] Aug, [facility] [address] [id number] [place] [address] 4[address] Aug, [facility] [address] [id number], [place] [address] 06 Aug, 2011 [facility] [place] [facility] [address] [id number] [place] [address] 25 Jun, 2011 [facility] [place] [facility] [address] [id number] [place] [address] 20 Jun, 2011 [facility] [place] [facility] [address] [id number] [place] [address]- [address]37 14 Jun, 2011 [facility] [place] [facility] [address] [id number] [place] [address]- [address]01 14 Jun, 2011 [facility] [place] [facility] [address] [id number] [place] [address] 16 Apr, 2011 [facility] [place] [facility] [address] [id number] [place] [address] Mar, [facility] [place] [facility] [address] [id number] [place] [address]45 Feb, [facility] [place] [facility] [address] [id number] [place] [address] Sep, [facility] [place] [facility] [address] [id number] [place] [address]161 Aug, [facility] [place] [facility] [address] [id number] [place] [address] 1743 Aug, [facility] [place] [facility] [address] [id number], [place] [address] Jul, [facility] [place] [facility] [address] [id number] [place] [address] Jul, [facility] [place] [facility] [address] [id number] [place] [address] Jul, [facility] [place] [facility] [address] [id number] [place] [address]147 Jun, [facility] [place] [facility] [address] [id number] [place] [address] 4656 Apr, [facility] [place] [facility] [address] [facility] [id number] [place] [address] 17 Oct, 2009 [facility] [address] [id number] [address] Aug, [facility] [address] [id number], [place] [address] Jun, [facility] [address] [id number], [place] [address] Feb, [facility] [address] [id number], [place] [address] Aug, [facility] [address] [id number], [place] [address] Jun, [facility] [address] [id number] [address] Jun, IMMUNIZATIONS No Known Immunizations SOCIAL HISTORY [...]
--- NOTE | 2018-11-24 04:48 | ED General ---
General Chief Complaint: Head/Cervical Problems Stated Complaint: HEADACHE History of Present Illness Date Seen by Provider: Nov 24, 2018 Time Seen by Provider: 04:38 This is a 58-year-old man with a history of unclear tachycardia treated with Cardizem, dronedarone, and eliquis, pulmonary embolism, here for a sensation of discomfort in the chest and headache similar to prior episodes when his heart rate has been elevated requiring what sounds like chemical cardioversion. He was admitted either a month ago or 2 months ago at outside hospital he states related to similar episode where he was in the ICU for 5 days. History is somewhat limited as he cannot provide details about this. His pain is burning in character, sometimes he'll feel it in his throat but he does not feel it now. He has no shortness of breath. He has no visual change or focal weakness, numbness, or tingling. He has no fever. No neck pain or neck stiffness. Allergies and Home Medications Allergies Coded Allergies: No Known Drug Allergies (Verified , 07/14/17) Home Medications Alprazolam 1 Mg Tablet, 1 MG PO TID PRN for ANXIETY, (Reported) Apixaban 5 Mg Tablet, 5 MG PO BID, (Reported) Diltiazem HCl 120 Mg Cap.er.24h, 120 MG PO 0500, (Reported) Dronedarone HCl 400 Mg Tablet, 400 MG PO BID Prescribed by: NIC LÓPEZ on 10/14/182020 Levothyroxine Sodium 25 Mcg Tablet, 25 MCG PO DAILY, (Reported) Oxycodone HCl 5 Mg Tablet, 5 MG PO QID PRN for PAIN-SEVERE, (Reported) Patient Home Medication List Home Medication List Reviewed: Yes Review of Systems Review of Systems Constitutional: no symptoms reported EENTM: no symptoms reported Respiratory: no symptoms reported Cardiovascular: see HPI Gastrointestinal: no symptoms reported Genitourinary: no symptoms reported Musculoskeletal: no symptoms reported Skin: no symptoms reported Psychiatric/Neurological: See HPI Hematologic/Lymphatic: No Symptoms Reported Immunological/Allergic: no symptoms reported Past Bfdhlmn-Fwecqx-Kkfxni Hx Patient Social History Recent Foreign Travel: No Contact w/Someone Who Travel: No Physical Exam Vital Signs Vital Signs - First Documented 11/24/18 04:46 Temp 99.2 Pulse 102 Resp 18 B/P (MAP) 131/77 (95) Pulse Ox 94 O2 Delivery Room Air Capillary Refill : Height, Weight, BMI Height: '" Weight: lbs. oz. kg; BMI Method: General Appearance: Other (appears mildly anxious, lying supine with eyes closed) Eyes: Bilateral Eye PERRL, Bilateral Eye EOMI HEENT: Pharynx Normal Neck: Supple; No JVD Respiratory: Lungs Clear Cardiovascular: Other (heart rate is about 103 bpm on the monitor, regular, no murmur) Gastrointestinal: Non Tender, Soft Extremity: No Calf Tenderness, No Pedal Edema Neurologic/Psychiatric: Alert, Oriented x3, No Motor/Sensory Deficits, ingot stripper II- XII Norm as Tested Skin: Warm/Dry Progress/Results/Core Measures Suspected Sepsis SIRS Temperature: Pulse: Respiratory Rate: Laboratory Tests 11/24/18 04:55: White Blood Count 11.7H Blood Pressure / Mean: Laboratory Tests 11/24/18 04:55: Creatinine 1.28, INR Comment 1.0, Platelet Count 427H, Total Bilirubin 0.2 Results/Orders Lab Results Laboratory Tests Test 11/24/18 04:55 Range/Units White Blood Count 11.7 H 4.3-11.0 10^3/uL Red Blood Count 5.00 4.35-5.85 10^6/uL Hemoglobin 14.4 13.3-17.7 G/DL Hematocrit 43 40-54 % Mean Corpuscular Volume 87 80-99 FL Mean Corpuscular Hemoglobin 29 25-34 PG Mean Corpuscular Hemoglobin Concent 33 32-36 G/DL Red Cell Distribution Width 14.2 10.0-14.5 % Platelet Count 427 H 130-400 10^3/uL Mean Platelet Volume 9.6 7.4-10.4 FL Neutrophils (%) (Auto) 79 H 42-75 % Lymphocytes (%) (Auto) 7 L 12-44 % Monocytes (%) (Auto) 11 0-12 % Eosinophils (%) (Auto) 3 0-10 % Basophils (%) (Auto) 1 0-10 % Neutrophils # (Auto) 9.2 H 1.8-7.8 X 10^3 Lymphocytes # (Auto) 0.8 L 1.0-4.0 X 10^3 Monocytes # (Auto) 1.3 H 0.0-1.0 X 10^3 Eosinophils # (Auto) 0.3 0.0-0.3 10^3/uL Basophils # (Auto) 0.1 0.0-0.1 10^3/uL Neutrophils % (Manual) 86 % Lymphocytes % (Manual) 3 % Monocytes % (Manual) 7 % Eosinophils % (Manual) 2 % Basophils % (Manual) 0 % Band Neutrophils 2 % Prothrombin Time 13.1 12.2-14.7 SEC INR Comment 1.0 0.8-1.4 Activated Partial Thromboplast Time 25 24-35 SEC Sodium Level 138 135-145 MMOL/L Potassium Level 4.4 3.6-5.0 MMOL/L Chloride Level 102 98-107 MMOL/L Carbon Dioxide Level 23 21-32 MMOL/L Anion Gap 13 5-14 MMOL/L Blood Urea Nitrogen 15 7-18 MG/DL Creatinine 1.28 0.60-1.30 MG/DL Estimat Glomerular Filtration Rate 57 BUN/Creatinine Ratio 12 Glucose Level 104 70-105 MG/DL Calcium Level 9.1 8.5-10.1 MG/DL Corrected Calcium 9.4 8.5-10.1 MG/DL Magnesium Level 2.0 1.8-2.4 MG/DL Total Bilirubin 0.2 0.1-1.0 MG/DL Aspartate Amino Transf (AST/SGOT) 11 5-34 U/L Alanine Aminotransferase (ALT/SGPT) 10 0-55 U/L Alkaline Phosphatase 60 40-136 U/L Troponin T 29 H <=15 NG/L Total Protein 6.2 L 6.4-8.2 GM/DL Albumin 3.6 3.2-4.5 GM/DL My Orders Orders - FREDERICK CASAREZ DO Cbc With Automated Diff (11/24/18 04:42) Magnesium (11/24/18 04:42) Chest 1 View Ap/Pa Only (11/24/18 04:42) Ekg Tracing (11/24/18 04:42) Comprehensive Metabolic Panel (11/24/18 04:42) Protime With Inr (11/24/18 04:42) Partial Thromboplastin Time (11/24/18 04:42) O2 (11/24/18 04:42) Monitor-Rhythm Ecg Trace Only (11/24/18 04:42) Saline Lock/Iv-Start (11/24/18 04:42) Troponin T (11/24/18 04:42) Manual Differential (11/24/18 04:55) Metoclopramide Injection (Reglan Injecti (11/24/18 05:13) Diphenhydramine Injection (Benadryl Inje (11/24/18 05:13) Ct Angio Chest W (11/24/18 05:49) Iopamidol 61% Injection (Isovue 300 61% (11/24/18 06:00) Sodium Chloride Flush (Catheter Flush Sy (11/24/18 06:00) Morphine Injection (Morphine Injection (11/24/18 06:00) Vital Signs/I&O Capillary Refill : Progress Note #1: Progress Note Hx is limited, pt c/o recurrent symptoms of CP and COLLINS, through imaging results we see he has hx of PE, he has mild tachycardia and SpO2 is in low 90's. Given this hx will r/o PE with CTA, and pursuing basic cardiac workup. ECG nonischemic. Treating COLLINS w reglan and benadryl, CP with morphine. Despite being anticoagulated the headache symptom is not new and he is neurologically intact, this was not abrupt in onset, not "worst of life", we will defer head CT at this time. Progress Note #2: Progress Note [facility] [place] [facility] at 0555. Progress Note #3: Progress Note Care signed out to oncoming provider at 6am, with CTA and callback from [facility] hospitalist pending. Departure Impression Primary Impression: Chest pain Additional Impressions: Headache Anticoagulated Hx of pulmonary embolus Disposition: XFER SHT-TRM HOSP Condition: Stable Transfer Time Spoke to Accepting Phy: 06:[address] Calvo @ [facility] Transfer Facility: [facility] Method of Transfer: EMS Departure-Patient Inst. Referrals: NO,LOCAL PHYSICIAN (PCP) Primary Care Physician FREDERICK CASAREZ DO Nov 24, 2018 04:48
--- OUTSIDE RECORDS SUMMARY | 2018-11-24 04:48 | XMS REPORT ---
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
--- OUTSIDE RECORDS SUMMARY | 2018-11-24 04:48 | XMS REPORT ---
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
--- OUTSIDE RECORDS SUMMARY | 2018-11-24 04:48 | XMS REPORT ---
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 Active 18012870 Problem Chronic pain syndrome G89.4 Active 29321155 Problem Elevated platelet count D47.3 Active 064493094 Problem Urinary hesitancy R39.11 Active 0111016 Problem Major depressive disorder, recurrent, moderate F33.1 Active 76530695 Problem Posttraumatic stress disorder F43.10 Active 18620952 Problem Gastroesophageal reflux disease, esophagitis presence not specified K21.9 Active 649336849 Problem Other chronic pain G89.29 Active 20922865 ALLERGIES No Information ENCOUNTERS Encounter Location Date Diagnosis [facility] [id number], [place] [address] Sep, Chronic pain syndrome G89.4 [facility] [address], [place] [address] Sep, [facility] [id number] [place] [address] 98816- 2708 Sep, [facility] [id number] [place] [address] 83339- 5543 Sep, [facility] [address], [place] [address] 4816 Sep, [facility] [address], [place] [address] 7111 Sep, [facility] [id number] [place] [address] 31229- 5839 Sep, [facility] [address], [place] [address] Aug, [facility] [id number] [place] [address] 28219- 8678 Aug, Portal vein thrombosis I81 ; Chronic pain syndrome G89.4 and Other acute pulmonary embolism without acute cor pulmonale I26.99 [facility] [id number] [place] [address] 87179- 0039 Aug, [facility] [id number] [place] [address] 21431- 5533 Aug, [facility] [id number] [place] [address] 44365- 5551 Jul, Major depressive disorder, recurrent, moderate F33.1 and Posttraumatic stress disorder F43.10 [facility] [id number] [place] [address] 33989- 3400 Jul, Gastroesophageal reflux disease, esophagitis presence not specified K21.9 [facility] [address], [place] [address] 2463 Jun, [facility] [id number] [place] [address] 90269- 0723 Jun, [facility] [address], [place] [address] 1270 Jun, Posttraumatic stress disorder F43.10 and 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 [facility] [address], [place] [address] 5702 Apr, [facility] [address], [place] [address]- 6200 Apr, Mass of sinus R22.0 ; 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 and Elevated platelet count D47.3 [facility] [id number] [place] [address] 51751- 7443 Apr, 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 and Posttraumatic stress disorder F43.10 [facility] [id number] [place] [address] 11091- 2088 January, [facility] [id number] [place] [address] 05563- 4541 January, Posttraumatic stress disorder F43.10 and 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 [facility] [id number] [place] [address] 45800- 5131 Dec, 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 and Elevated platelet count D47.3 [facility] [id number] [place] [address] 28485- 5752 Dec, [facility] [id number] [place] [address] 89024- 1290 Dec, Low energy R53.83 ; 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 ; Gastroesophageal reflux disease, esophagitis presence not specified K21.9 and Urinary hesitancy R39.11 [facility] [id number] [place] [address] 08240- 1533 Dec, Posttraumatic stress disorder F43.10 and 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 [facility] [id number] [place] [address] 71607- 6565 Oct, [facility] [id number] [place] [address] 15444- 2308 Sep, Mass of sinus R22.0 [facility] [id number] [place] [address] 81010- 2019 Sep, Dysuria R30.0 ; Low back pain M54.5 ; Other chronic pain G89.29 ; Poor nutrition E63.9 ; Gastroesophageal reflux disease, esophagitis presence not specified K21.9 and Mass of sinus R22.0 [facility] [id number] [place] [address] 10544- 7238 Sep, Posttraumatic stress disorder F43.10 and 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 [facility] [id number] [place] [address] 77214- 6469 Sep, [facility] [address] 85493- 0657 Aug, [facility] [address] 58320- 9843 Aug, Encounter for immunization Z23 [facility] [address] 32067- 0820 Jul, Posttraumatic stress disorder F43.10 ; 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 and Major depressive disorder, recurrent, moderate F33.1 [facility] [id number] [place] [address] 01907- 0865 Jun, [facility] [address] 73075- 7515 Jun, [facility] [id number] [place] [address] 01523- 4688 May, [facility] [id number] [place] [address] 41273- 1923 Apr, [facility] [id number] [place] [address] 33100- 2145 Apr, Posttraumatic stress disorder F43.10 and 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 [facility] [id number] [place] [address] 97321- 0974 Mar, [facility] [id number] [place] [address] 92861- 0041 Feb, [facility] [id number] [place] [address] 05119- 0221 January, [facility] [address], [place] [address]- 5058 January, Posttraumatic stress disorder F43.10 and 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 [facility] [address], [place] [address]- 8193 Dec, [facility] [id number] [place] [address] 11726- 2158 Nov, [facility] [id number] [place] [address] 60062- 8438 Nov, [facility] [id number] [place] [address] 97394- 8343 Oct, Posttraumatic stress disorder F43.10 and 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 [facility] [id number] [place] [address] 35649- 7573 Sep, Encounter for immunization Z23 ; Posttraumatic stress disorder F43.10 and 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 [facility] [id number] [place] [address] 58121- 4882 Aug, [facility] [address], [place] [address]- 4029 Aug, [facility] [address], [place] [address]- 7720 Jul, Encounter for immunization Z23 ; Posttraumatic stress disorder F43.10 and 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 [facility] [address], [place] [address]- 9942 Jun, [facility] [id number] [place] [address] 41693- 8495 Jun, Mass of sinus R22.0 ; Low back pain M54.5 and Paroxysmal atrial fibrillation I48.0 [facility] [id number] [place] [address] 04778- 7931 May, [facility] [address] [facility] [id number], [place] [address]- 0360 Apr, Posttraumatic stress disorder 309.81 and Major depressive disorder, recurrent episode, moderate 296.32 [facility] [address] [facility] [id number] [place] [address]- 7346 Apr, [facility] [address] [facility] [id number], [place] [address]- 6262 Mar, Major depressive disorder, recurrent episode, moderate 296.32 and Posttraumatic stress disorder 309.81 [facility] [address] [facility] [id number], [place] [address]- 2748 Feb, [facility] [address] [facility] [id number], [place] [address]- 6106 Feb, [facility] [id number], [place] [address]- 2782 January, [facility] [id number], [place] [address]- 8367 January, [facility] [id number], [place] [address]- 0973 January, [facility] [id number], [place] [address]- 1927 Dec, [facility] [id number], [place] [address]- 2386 Dec, [facility] [id number], [place] [address] 2549 Nov, [facility] [id number], [place] [address]- 6407 Nov, [facility] [id number], [place] [address]- 2836 Nov, [facility] [id number], [place] [address]- 2546 Nov, [facility] [address] [address]- 2471 04 Nov, 2014 [facility] [place] [facility] [address] [id number] [place] [address]- 6140 Nov, 2014 [facility] [place] [facility] [address] [id number] [place] [address]- 5926 Nov, 2014 [facility] [place] [facility] [address] [id number] [place] [address]- 6920 Nov, 2014 [facility] [place] [facility] [address] [id number] [place] [address]- 3951 Oct, 2014 [facility] [place] [facility] [address] [id number] [place] [address]- 2268 Oct, 2014 [facility] [place] [facility] [address] [facility] [id number] [place] [address]- 5572 16 Oct, 2014 [facility] [place] [facility] [address] [facility] [id number] [place] [address]- 6234 16 Oct, 2014 [facility] [place] [facility] [address] [id number] [place] [address]- 1003 Oct, 2014 [facility] [place] [facility] [address] [facility] [id number] [place] [address]- 3292 16 Oct, 2014 [facility] [place] [facility] [address] [facility] [id number] [place] [address]- 4427 Oct, 2014 [facility] [place] [facility] [address] [facility] [id number], [place] [address]- 1879 Oct, 2014 [facility] [place] [facility] [address] [facility] [id number] [place] [address]- 5218 Oct, 2014 [facility] [place] [facility] [address] [id number] [place] [address]- 3763 Oct, 2014 [facility] [place] [facility] [address] [facility] [id number] [place] [address]- 0245 05 Oct, 2014 [facility] [place] [facility] [address] [facility] [id number] [place] [address]- 5936 05 Oct, 2014 [facility] [place] [facility] [address] [id number] [place] [address]- 1330 Oct, 2014 [facility] [place] [facility] [address] [id number] [place] [address]- 5841 Oct, 2014 [facility] [place] [facility] [address] [id number] [place] [address]- 9267 Oct, 2014 [facility] [place] [facility] [address] [id number] [place] [address]- 6558 Oct, [facility] [place] [facility] [address] [id number] [place] [address]- 9170 Sep, [facility] [place] [facility] [address] [id number] [place] [address]- 9376 Sep, [facility] [place] [facility] [address] [id number] [place] [address]- 5457 Sep, [facility] [place] [facility] [address] [id number] [place] [address]- 8668 Sep, [facility] [place] [facility] [address] [id number] [place] [address]- 8119 Aug, [facility] [place] [facility] [address] [facility] [id number] [place] [address]- 1744 Aug, [facility] [place] [facility] [address] [id number] [place] [address]- 9977 Aug, [facility] [place] [facility] [address] [id number] [place] [address]- 4371 Aug, [facility] [place] [facility] [address] [id number] [place] [address]- 3488 Aug, [facility] [place] [facility] [address] [id number] [place] [address]- 1447 Aug, [facility] [place] [facility] [address] [id number] [place] 9984 Aug, [facility] [place] [facility] [address] [id number] [place] [address]- 5490 Aug, [facility] [place] [facility] [address] [id number] [place] [address]- 1034 Aug, [facility] [place] [facility] [address] [id number] [place] 8799 Aug, [facility] [place] [facility] [address] [id number] [place] [address]- 8426 Aug, [facility] [place] [facility] [address] [id number] [place] [address]- 6369 Aug, [facility] [place] [facility] [address] [id number] [place] [address]- 2137 Aug, [facility] [place] [facility] [address] [id number] [place] [address]- 8557 Aug, [facility] [place] [facility] [address] [id number] [place] [address]- 0556 Aug, [facility] [place] [facility] [address] [id number] [place] [address]- 5736 Aug, [facility] [place] [facility] [address] [id number] [place] [address]- 7390 Jul, [facility] [place] [facility] [address] [id number] [place] [address]- 2785 Jul, [facility] [place] [facility] [address] [id number] [place] [address]- 4799 Jul, [facility] [place] [facility] [address] [id number] [place] [address]- 7210 Jul, [facility] [place] [facility] [address] [id number] [place] [address]- 9982 Jul, [facility] [place] [facility] [address] [id number] [place] [address]- 0597 Jul, [facility] [place] [facility] [address] [id number], [place] [address]- 8358 15 Jun, 2014 [facility] [place] [facility] [address] [id number] [place] [address]- 0585 15 Jun, 2014 [facility] [place] [facility] [address] [id number] [place] [address]- 0788 Jun, [facility] [place] [facility] [address] [id number] [place] [address]- 1195 10 Jun, 2014 [facility] [place] [facility] [address] [id number] [place] [address]- 6899 09 Jun, 2014 [facility] [place] [facility] [address] [id number] [place] [address]- 1574 Jun, [facility] [place] [facility] [address] [id number] [place] [address]- 6588 Jun, [facility] [place] [facility] [address] [id number] [place] [address]- 4534 Jun, [facility] [place] [facility] [address] [id number], [place] [address]- 6633 Jun, [facility] [place] [facility] [address] [id number] [place] [address]- 2314 Jun, [facility] [place] [facility] [address] [id number] [place] [address]- 4944 Jun, [facility] [place] [facility] [address] [id number], [place] [address]- 3416 Jun, [facility] [place] [facility] [address] [id number], [place] [address]- 2609 Jun, [facility] [place] [facility] [address] [id number] [place] [address]- 5059 Jun, [facility] [place] [facility] [address] [id number], [place] [address]- 9945 May, [facility] [place] [facility] [address] [id number], [place] [address]- 3670 16 May, 2013 [facility] [place] [facility] [address] [id number] [place] [address]- 2682 May, [facility] [place] [facility] [address] [id number] [place] [address]- 8869 May, [facility] [place] [facility] [address] [id number] [place] [address]- 1716 Apr, [facility] [place] [facility] [address] [id number] [place] [address]- 7185 Apr, [facility] [place] [facility] [address] [id number] [place] [address]- 2615 Apr, [facility] [place] [facility] [address] [id number] [place] [address]- 2004 Apr, [facility] [place] [facility] [address] [id number] [place] [address]- 7670 Mar, [facility] [place] [facility] [address] [id number] [place] [address]- 6002 Mar, [facility] [place] [facility] [address] [id number] [place] [address]- 8287 Mar, [facility] [place] [facility] [address] [id number] [place] [address]- 6223 Mar, [facility] [place] [facility] [address] [id number] [place] [address]- 5342 Mar, [facility] [place] [facility] [address] [id number] [place] [address]- 8436 Mar, [facility] [place] [facility] [address] [id number] [place] [address]- 5340 Mar, [facility] [place] [facility] [address] [id number] [place] [address]- 5651 Mar, [facility] [place] [facility] [address] [id number] [place] [address]- 6446 Mar, [facility] [place] [facility] [address] [id number] [place] [address]- 2110 Mar, [facility] [place] [facility] [address] [id number] [place] [address]- 2202 Mar, [facility] [place] [facility] [address] [id number] [place] [address]- 0627 Mar, [facility] [place] [facility] [address] [id number] [place] [address]- 3784 Feb, [facility] [place] [facility] [address] [id number] [place] [address]- 6944 Feb, [facility] [place] [facility] [address] [id number] [place] [address]- 2625 Feb, [facility] [place] [facility] [address] [id number] [place] [address]- 1612 Feb, [facility] [place] [facility] [address] [id number] [place] [address]- 0863 Feb, [facility] [place] [facility] [address] [id number] [place] [address]- 6180 Feb, [facility] [place] [facility] [address] [id number] [place] [address]- 5173 January, [facility] [place] [facility] [address] [id number] [place] [address]- 0144 January, [facility] [place] [facility] [address] [id number] [place] [address]- 1641 January, [facility] [place] [facility] [address] [id number] [place] [address]- 2354 January, [facility] [place] [facility] [address] [id number] [place] [address]- 0691 January, [facility] [place] [facility] [address] [id number] [place] [address]- 5370 January, [facility] [place] [facility] [address] [id number] [place] [address]- 3716 Nov, [facility] [place] [facility] [address] [id number], [place] [address]- 4626 Nov, [facility] [place] [facility] [address] [id number] [place] [address]- 9292 Nov, [facility] [place] [facility] [address] [id number] [place] [address]- 0668 Nov, [facility] [place] [facility] [address] [id number] [place] [address]- 0306 Oct, [facility] [place] [facility] [address] [id number] [place] [address]- 8876 Oct, [facility] [place] [facility] [address] [id number] [place] [address]- 2668 Sep, [facility] [place] [facility] [address] [id number] [place] [address]- 5682 Sep, [facility] [place] [facility] [address] [id number] [place] [address]- 6810 Sep, [facility] [place] [facility] [address] [id number] [place] [address]- 9032 Sep, [facility] [place] [facility] [address] [facility] [id number] [place] [address] Sep, [facility] [place] [facility] [address] [facility] [id number] [place] [address] Aug, [facility] [place] [facility] [address] [id number] [place] [address] Aug, [facility] [place] [facility] [address] [id number] [place] [address] Jul, [facility] [place] [facility] [address] [id number] [place] [address] Jul, [facility] [place] [facility] [address] [id number] [place] [address] Jul, [facility] [place] [facility] [address] [facility] [id number] [place] [address] Jun, [facility] [place] [facility] [address] [id number] [place] [address] Jun, [facility] [place] [facility] [address] [id number] [place] [address] Jun, [facility] [place] [facility] [address] [id number] [place] [address] Jun, [facility] [place] [facility] [address] [id number] [place] [address] Apr, [facility] [place] [facility] [address] [id number] [place] [address] Mar, [facility] [place] [facility] [address] [id number] [place] [address] Mar, [facility] [place] [facility] [address] [id number] [place] [address] January, [facility] [place] [facility] [address] [id number] [place] [address] Dec, [facility] [place] [facility] [address] [id number] [place] [address] Dec, [facility] [place] [facility] [address] [id number] [place] [address] Nov, [facility] [place] [facility] [address] [id number] [place] [address] Nov, [facility] [place] [facility] [address] [id number] [place] [address] Nov, [facility] [place] [facility] [address] [id number] [place] [address] Nov, [facility] [place] [facility] [address] [id number] [place] [address] Nov, [facility] [place] [facility] [address] [id number] [place] [address] 05 Nov, 2012 [facility] [place] [facility] [address] [id number] [place] [address] Oct, [facility] [place] [facility] [address] [id number] [place] [address] 15 Sep, 2012 [facility] [place] [facility] [address] [id number] [place] [address] 18 Aug, 2012 [facility] [place] [facility] [address] [facility] [id number] [place] [address] Aug, [facility] [place] [facility] [address] [id number] [place] [address] Aug, [facility] [place] [facility] [address] [id number] [place] [address] Aug, [facility] [place] [facility] [address] [facility] [id number], [place] [address] Jul, [facility] [place] [facility] [address] [facility] [id number] [place] [address] Jul, [facility] [place] [facility] [address] [id number], [place] [address] Jun, [facility] [place] [facility] [address] [id number] [place] [address] 26 Jun, 2012 [facility] [place] [facility] [address] [facility] [id number], [place] [address] 18 Jun, 2012 [facility] [place] [facility] [address] [id number], [place] [address] 18 Jun, 2012 [facility] [place] [facility] [address] [id number], [place] [address] 21 May, 2012 [facility] [place] [facility] [address] [id number], [place] [address] 18 May, 2012 [facility] [place] [facility] [address] [facility] [id number], [place] [address] 14 May, 2012 [facility] [place] [facility] [address] [facility] [facility] [id number], [place] [address] 10 May, 2012 [facility] [place] [facility] [address] [id number] [place] [address] May, [facility] [address] [id number] [place] [address] Apr, [facility] [place] [facility] [address] [id number] [place] [address] Apr, [facility] [address] [id number] [place] [address] Mar, [facility] [address] [id number] [place] [address] Mar, [facility] [address] [id number] [place] [address] Mar, [facility] [address] [id number] [place] [address] Feb, [facility] [address] [id number] [place] [address] January, [facility] [address] [id number] [place] [address] Nov, [facility] [place] [facility] [address] [id number] [place] [address] Nov, [facility] [address] [id number] [place] [address] Nov, [facility] [place] [facility] [address] [id number] [place] [address] Nov, [facility] [place] [facility] [address] [id number] [place] [address] Nov, [facility] [place] [facility] [address] [id number] [place] [address] Oct, [facility] [place] [facility] [address] [id number] [place] [address] Oct, [facility] [address] [id number] [place] [address] Oct, [facility] [address] [id number] [place] [address] 13 Oct, 2011 [facility] [place] [facility] [address] [id number] [place] [address] 10 Oct, 2011 [facility] [address] [id number] [place] [address] Sep, [facility] [place] [facility] [address] [id number] [place] [address] Sep, [facility] [address] [id number] [place] [address] Sep, [facility] [address] [id number] [place] [address] Sep, [facility] [address] [id number] [place] [address] Sep, [facility] [address] [id number] [place] [address] Sep, [facility] [address] [id number] [place] [address] Sep, [facility] [address] [id number] [place] [address] Aug, [facility] [place] [facility] [address] [id number], [place] [address] Aug, [facility] [place] [facility] [address] [id number], [place] [address] Aug, [facility] [place] [facility] [address] [id number] [place] [address] Aug, [facility] [place] [facility] [address] [id number] [place] [address] Aug, [facility] [place] [facility] [address] [id number] [place] [address] Aug, [facility] [place] [facility] [address] [id number] [place] [address] 25 Jun, 2011 [facility] [place] [facility] [address] [id number] [place] [address] 20 Jun, 2011 [facility] [place] [facility] [address] [id number] [place] [address] 14 Jun, 2011 [facility] [place] [facility] [address] [id number] [place] [address] 14 Jun, 2011 [facility] [place] [facility] [address] [id number] [place] [address] 16 Apr, 2011 [facility] [place] [facility] [address] [id number] [place] [address] 19 Mar, 2011 [facility] [place] [facility] [address] [id number] [place] [address] Feb, [facility] [place] [facility] [address] [id number] [place] [address] 19 Sep, 2010 [facility] [place] [facility] [address] [id number] [place] [address] 14 Aug, 2010 [facility] [place] [facility] [address] [id number] [place] [address] Aug, [facility] [place] [facility] [address] [id number] [place] [address] Jul, [facility] [place] [facility] [address] [id number] [place] [address] Jul, [facility] [place] [facility] [address] [id number] [place] [address] Jul, [facility] [place] [facility] [address] [id number] [place] [address] Jun, [facility] [place] [facility] [address] [id number] [place] [address] Apr, [facility] [place] [facility] [address] [id number] [place] [address] Oct, [facility] [address] [facility] [id number], [place] [address] Aug, [facility] [address] [id number], [place] [address] Jun, [facility] [address] [id number] [address] Feb, [facility] [address] [id number], [place] [address] Aug, [facility] [address] [id number], [place] [address] Jun, [facility] [address] [id number], [place] [address] Jun, IMMUNIZATIONS No Known Immunizations SOCIAL HISTORY Never Assessed REASON FOR VISIT PA for MRI brain without PLAN OF CARE VITAL SIGNS MEDICATIONS Unknown [...]
--- OUTSIDE RECORDS SUMMARY | 2018-11-24 04:48 | XMS REPORT ---
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 Active 37115252 Problem Chronic pain syndrome G89.4 Active 11644286 Problem Elevated platelet count D47.3 Active 095730215 Problem Urinary hesitancy R39.11 Active 0301145 Problem Major depressive disorder, recurrent, moderate F33.1 Active 16524075 Problem Posttraumatic stress disorder F43.10 Active 26519993 Problem Gastroesophageal reflux disease, esophagitis presence not specified K21.9 Active 962236129 Problem Other chronic pain G89.29 Active 99369891 ALLERGIES Substance Reaction Event Type Date Status [...] IF INDICATED (IN HOUSE) 2016-10-14 Lot # [id number] Exp date 07/2017 Clarity clear Color yellow [...]
--- OUTSIDE RECORDS SUMMARY | 2018-11-24 04:48 | XMS REPORT ---
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
--- OUTSIDE RECORDS SUMMARY | 2018-11-24 04:48 | XMS REPORT ---
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 Active 03220403 Problem Chronic pain syndrome G89.4 Active 03753216 Problem Elevated platelet count D47.3 Active 454494051 Problem Urinary hesitancy R39.11 Active 2093475 Problem Major depressive disorder, recurrent, moderate F33.1 Active 22665213 Problem Posttraumatic stress disorder F43.10 Active 55724575 Problem Gastroesophageal reflux disease, esophagitis presence not specified K21.9 Active 515921079 Problem Other chronic pain G89.29 Active 77266337 ALLERGIES Substance Reaction Event Type Date Status Tramadol 50 Mg Tablet Failed UDS- neg for prescribed meds Non Drug Allergy Apr, Active Benzodiazepines Failed UDS- neg for prescribed meds Non Drug Allergy Apr Active Hydrocodone Failed UDS- neg for prescribed meds Non Drug Allergy Apr, Active Amphetamine Failed UDS- neg for prescribed meds Non Drug Allergy Apr, Active ENCOUNTERS Encounter Location Date Diagnosis [facility] [address], [place] [address] Sep, Chronic pain syndrome G89.4 [facility] [id number] [address] Sep, [facility] [id number] [address] Sep, [facility] [address], [place] [address] Sep, [facility] [address] [address] Sep, [facility] [id number] [place] [address] 25803- 2160 Sep, [facility] [id number] [place] [address] 913071- 4931 Sep, [facility] [id number] [place] [address] 27519- 4002 Aug, [facility] [id number] [place] [address] 36021- 5691 Aug, Portal vein thrombosis I81 ; Chronic pain syndrome G89.4 and Other acute pulmonary embolism without acute cor pulmonale I26.99 [facility] [address], [place] [address] Aug, [facility] [id number] [place] [address] 76755- 6022 Aug, [facility] [id number] [place] [address] 91802- 5336 Jul, Major depressive disorder, recurrent, moderate F33.1 and Posttraumatic stress disorder F43.10 [facility] [address], [place] [address] 480[address] Jul, Gastroesophageal reflux disease, esophagitis presence not specified K21.9 [facility] [address], [place] [address] 8557 Jun, [facility] [id number] [place] [address] 175894- 3515 Jun, [facility] [address], [place] [address]- 1147 Jun, Posttraumatic stress disorder F43.10 and 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 [facility] [address], [place] [address]- 53[address] Apr, [facility] [id number] [place] [address] [id number]- 6026 Apr, Mass of sinus R22.0 ; 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 and Elevated platelet count D47.3 [facility] [id number] [place] [address] 99670- 0594 Apr, 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 and Posttraumatic stress disorder F43.10 [facility] [id number] [place] [address] 26596- 6576 January, [facility] [id number] [place] [address] 91375- 7648 January, Posttraumatic stress disorder F43.10 and 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 [facility] [id number] [place] [address] 92965- 5088 Dec, 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 and Elevated platelet count D47.3 [facility] [id number] [place] [address] 85966 2546 Dec, [facility] [id number] [place] [address] 77951- 7848 Dec, Low energy R53.83 ; 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 ; Gastroesophageal reflux disease, esophagitis presence not specified K21.9 and Urinary hesitancy R39.11 [facility] [id number] [place] [address] 28173- 8870 Dec, Posttraumatic stress disorder F43.10 and 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 [facility] [id number] [place] [address] 90226- 0496 Oct, [facility] [id number] [place] [address] 51257- 9825 Sep, Mass of sinus R22.0 [facility] [id number] [place] [address] 70853- 8444 Sep, Dysuria R30.0 ; Low back pain M54.5 ; Other chronic pain G89.29 ; Poor nutrition E63.9 ; Gastroesophageal reflux disease, esophagitis presence not specified K21.9 and Mass of sinus R22.0 [facility] [id number] [place] [address] 63398- 0834 Sep, Posttraumatic stress disorder F43.10 and 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 [facility] [address] [address]- 3028 Sep, [facility] [address] [address]- 7921 Aug, [facility] [address] [address]- 5990 Aug, Encounter for immunization Z23 [facility] [id number] [place] [address] 15102- 5670 Jul, Posttraumatic stress disorder F43.10 ; 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 and Major depressive disorder, recurrent, moderate F33.1 [facility] [id number] [place] [address] 58626- 2406 Jun, [facility] [id number] [place] [address] 40742- 6528 Jun, [facility] [id number] [place] [address] 80229- 1790 May, [facility] [id number] [place] [address] 41528- 6233 Apr, [facility] [id number] [place] [address] 10496- 1251 Apr, Posttraumatic stress disorder F43.10 and 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 [facility] [id number], [place] [address]- 7095 Mar, [facility] [address], [place] [address]- 5436 Feb, [facility] [address] [address] January, [facility] [id number] [place] [address] 573662- 3908 January, Posttraumatic stress disorder F43.10 and 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 [facility] [address], [place] [address]- 8576 Dec, [facility] [address] [address]- 5985 Nov, [facility] [address] 395[address] Nov, [facility] [address] [address]- 7695 Oct, Posttraumatic stress disorder F43.10 and 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 [facility] [address] [address]204 Sep, Encounter for immunization Z23 ; Posttraumatic stress disorder F43.10 and 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 [facility] [address], [place] [address]- 3226 Aug, [facility] [id number], [place] [address]- 9306 Aug, [facility] [address] 58[address] Jul, Encounter for immunization Z23 ; Posttraumatic stress disorder F43.10 and 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 [facility] [address] 8266 Jun, [facility] [address] [address]- 5343 Jun, Mass of sinus R22.0 ; Low back pain M54.5 and Paroxysmal atrial fibrillation I48.0 [facility] [address], [place] [address]- 8296 May, [facility] [id number] [place] [address] 73327- 7158 Apr, Posttraumatic stress disorder 309.81 and Major depressive disorder, recurrent episode, moderate 296.32 [facility] [id number] [place] [address] 98602- 4627 Apr, [facility] [id number], [place] [address]- 6070 Mar, Major depressive disorder, recurrent episode, moderate 296.32 and Posttraumatic stress disorder 309.81 [facility] [id number], [place] [address]- 5113 Feb, [facility] [address], [place] [address]- 3263 Feb, [facility] [address], [place] [address]- 4120 January, [facility] [address], [place] [address]- 8779 January, [facility] [address], [place] [address]- 9896 January, [facility] [address], [place] [address]- 3015 Dec, [facility] [id number], [place] [address]- 4274 Dec, [facility] [address], [place] [address]- 2546 Nov, [facility] [address], [place] [address]- 0194 Nov, 2014 [facility] [place] [facility] [address] [id number] [place] [address]- 5539 Nov, 2014 [facility] [place] [facility] [address] [id number] [place] [address]- 4790 Nov, 2014 [facility] [place] [facility] [address] [facility] [id number] [place] [address]- 7652 Nov, 2014 [facility] [place] [facility] [address] [facility] [id number] [place] [address]- 3427 Nov, 2014 [facility] [place] [facility] [address] [id number] [place] [address]- 7619 Nov, [facility] [place] [facility] [address] [id number] [place] [address]- 4204 Nov, [facility] [place] [facility] [address] [facility] [id number] [place] [address]- 3515 Oct, 2014 [facility] [place] [facility] [address] [facility] [id number] [place] [address]- 7849 Oct, 2014 [facility] [place] [facility] [address] [facility] [id number] [place] [address]- 9504 Oct, 2014 [facility] [place] [facility] [address] [facility] [id number] [place] [address]- 2003 Oct, 2014 [facility] [place] [facility] [address] [facility] [id number] [place] [address]- 4387 Oct, 2014 [facility] [place] [facility] [address] [facility] [id number], [place] [address]- 9531 Oct, 2014 [facility] [place] [facility] [address] [facility] [id number] [place] [address]- 5437 Oct, 2014 [facility] [place] [facility] [address] [facility] [id number], [place] [address]- 3777 Oct, 2014 [facility] [place] [facility] [address] [facility] [id number] [place] [address]- 7902 Oct, 2014 [facility] [place] [facility] [address] [id number] [place] [address]- 2412 Oct, 2014 [facility] [place] [facility] [address] [id number] [place] [address]- 4767 Oct, 2014 [facility] [place] [facility] [address] [id number] [place] [address]- 2829 Oct, 2014 [facility] [place] [facility] [address] [id number] [place] [address]- 0086 Oct, 2014 [facility] [place] [facility] [address] [id number] [place] [address]- 0216 Oct, 2014 [facility] [place] [facility] [address] [id number] [place] [address]- 8237 Oct, 2014 [facility] [place] [facility] [address] [facility] [id number] [place] [address]- 1092 Oct, 2014 [facility] [place] [facility] [address] [facility] [id number] [place] [address]- 7053 Sep, [facility] [place] [facility] [address] [facility] [id number] [place] [address]- 5521 Sep, [facility] [place] [facility] [address] [facility] [id number], [place] [address]- 3692 Sep, [facility] [place] [facility] [address] [facility] [id number], [place] [address]- 3459 Sep, [facility] [place] [facility] [address] [id number], [place] [address]- 8023 Aug, [facility] [place] [facility] [address] [id number] [place] [address]- 8708 Aug, [facility] [place] [facility] [address] [id number] [place] [address]- 7861 Aug, [facility] [place] [facility] [address] [facility] [id number]- 0772 Aug, [facility] [place] [facility] [address] [id number], [place] [address]- 1032 Aug, [facility] [place] [facility] [address] [id number] [place] [address]- 6450 Aug, [facility] [place] [facility] [address] [id number] [place] [address]- 7001 Aug, [facility] [place] [facility] [address] [facility] [id number] [place] [address]- 1964 Aug, [facility] [place] [facility] [address] [id number] [place] [address]- 9783 Aug, [facility] [place] [facility] [address] [id number] [place] [address]- 8745 Aug, [facility] [place] [facility] [address] [id number] [place] [address]- 8503 Aug, [facility] [place] [facility] [address] [facility] [id number] [place] [address]- 3468 Aug, [facility] [place] [facility] [address] [id number] [place] [address]- 2916 Aug, [facility] [place] [facility] [address] [id number] [place] [address]- 6373 Aug, [facility] [place] [facility] [address] [facility] [id number] [place] [address]- 9937 Aug, [facility] [place] [facility] [address] [id number] [place] [address]- 9104 Aug, [facility] [place] [facility] [address] [id number], [place] [address]- 0688 Jul, [facility] [place] [facility] [address] [id number] [place] [address]- 5852 Jul, [facility] [place] [facility] [address] [facility] [id number] [place] [address]- 6007 Jul, [facility] [place] [facility] [address] [facility] [id number] [place] [address]- 5332 Jul, [facility] [place] [facility] [address] [id number] [place] [address]- 8803 Jul, [facility] [place] [facility] [address] [id number] [place] [address]- 3583 Jul, [facility] [place] [facility] [address] [id number] [place] [address]- 4473 Jun, [facility] [place] [facility] [address] [id number] [place] [address]- 1518 Jun, [facility] [place] [facility] [address] [id number] [place] [address]- 0949 Jun, [facility] [place] [facility] [address] [id number] [place] [address]- 7541 Jun, [facility] [place] [facility] [address] [id number] [place] [address]- 3212 Jun, [facility] [place] [facility] [address] [id number] [place] [address]- 4659 Jun, [facility] [place] [facility] [address] [id number] [place] [address]- 6641 Jun, [facility] [place] [facility] [address] [id number] [place] [address]- 1848 Jun, [facility] [place] [facility] [address] [id number] [place] [address]- 9978 Jun, [facility] [place] [facility] [address] [id number] [place] [address]- 1053 Jun, [facility] [place] [facility] [address] [id number] [place] [address]- 5196 Jun, [facility] [place] [facility] [address] [id number] [place] [address]- 0247 Jun, [facility] [place] [facility] [address] [id number] [place] [address]- 1538 Jun, [facility] [place] [facility] [address] [id number] [place] [address]- 9317 Jun, [facility] [place] [facility] [address] [id number] [place] [address]- 5903 May, [facility] [place] [facility] [address] [id number] [place] [address]- 4352 May, [facility] [place] [facility] [address] [id number] [place] [address]- 9580 May, [facility] [place] [facility] [address] [id number] [place] [address]- 5090 May, [facility] [place] [facility] [address] [id number] [place] [address]- 1643 Apr, [facility] [place] [facility] [address] [id number] [place] [address]- 0172 Apr, [facility] [place] [facility] [address] [id number] [place] [address]- 5621 Apr, [facility] [place] [facility] [address] [id number] [place] [address]- 2008 Apr, [facility] [place] [facility] [address] [id number] [place] [address]- 6143 Mar, [facility] [place] [facility] [address] [id number] [place] [address]- 4999 Mar, [facility] [place] [facility] [address] [id number] [place] [address]- 9965 Mar, [facility] [place] [facility] [address] [id number], [place] [address]- 9204 Mar, [facility] [place] [facility] [address] [id number] [place] [address]- 4603 Mar, [facility] [place] [facility] [address] [id number] [place] [address]- 9925 Mar, [facility] [place] [facility] [address] [id number] [place] [address]- 5698 Mar, [facility] [place] [facility] [address] [id number] [place] [address]- 8065 Mar, [facility] [place] [facility] [address] [id number] [place] [address]- 6596 Mar, [facility] [place] [facility] [address] [id number] [place] [address]- 8958 Mar, [facility] [place] [facility] [address] [id number] [place] [address]- 2348 Mar, [facility] [place] [facility] [address] [id number] [place] [address]- 6461 Mar, [facility] [place] [facility] [address] [id number] [place] [address]- 0328 Feb, [facility] [place] [facility] [address] [id number] [place] [address]- 0213 Feb, [facility] [place] [facility] [address] [id number] [place] [address]- 3428 Feb, [facility] [place] [facility] [address] [id number] [place] [address]- 9200 Feb, [facility] [place] [facility] [address] [id number] [place] [address]- 8233 Feb, [facility] [place] [facility] [address] [id number] [place] [address]- 1096 Feb, [facility] [place] [facility] [address] [id number] [place] [address]- 3721 January, [facility] [place] [facility] [address] [id number] [place] [address]- 0863 January, [facility] [place] [facility] [address] [id number] [place] [address]- 4660 January, [facility] [place] [facility] [address] [id number] [place] [address]- 7062 January, [facility] [place] [facility] [address] [id number] [place] [address]- 3139 January, [facility] [place] [facility] [address] [id number] [place] [address]- 1390 January, [facility] [place] [facility] [address] [id number] [place] [address]- 2683 Nov, [facility] [place] [facility] [address] [id number] [place] [address]- 1631 Nov, [facility] [place] [facility] [address] [id number] [place] [address]- 3858 Nov, [facility] [place] [facility] [address] [id number] [place] [address]- 3704 Nov, [facility] [place] [facility] [address] [id number] [place] [address]- 6436 Oct, [facility] [place] [facility] [address] [id number] [place] [address]- 0199 Oct, [facility] [place] [facility] [address] [id number] [place] [address]- 3844 Sep, [facility] [place] [facility] [address] [id number] [place] [address]- 8236 Sep, [facility] [place] [facility] [address] [id number] [place] [address]- 8344 Sep, [facility] [place] [facility] [address] [id number] [place] [address]- 6280 Sep, [facility] [place] [facility] [address] [id number] [place] [address]- 7239 Sep, [facility] [place] [facility] [address] [id number] [place] [address]- 4924 Aug, [facility] [place] [facility] [address] [id number] [place] [address]- 3966 Aug, [facility] [place] [facility] [address] [id number] [place] 1767 Jul, [facility] [place] [facility] [address] [id number] [place] [address]- 4081 Jul, [facility] [place] [facility] [address] [id number] [place] [address]- 3383 Jul, [facility] [place] [facility] [address] [id number] [place] [address]- 4131 Jun, [facility] [place] [facility] [address] [id number] [place] [address]- 4956 Jun, [facility] [place] [facility] [address] [id number] [place] [address]- 7720 Jun, [facility] [place] [facility] [address] [id number] [place] [address] Jun, [facility] [place] [facility] [address] [id number] [place] [address] Apr, [facility] [place] [facility] [address] [id number] [place] [address] Mar, [facility] [place] [facility] [address] [id number] [place] [address] Mar, [facility] [place] [facility] [address] [id number] [place] [address] January, [facility] [place] [facility] [address] [id number] [place] [address] Dec, [facility] [place] [facility] [address] [id number] [place] [address] Dec, [facility] [place] [facility] [address] [id number] [place] [address] Nov, [facility] [place] [facility] [address] [id number] [place] [address] Nov, [facility] [place] [facility] [address] [id number] [place] [address] Nov, [facility] [place] [facility] [address] [id number] [place] [address] Nov, [facility] [place] [facility] [address] [id number] [place] [address] Nov, [facility] [place] [facility] [address] [id number] [place] [address] Nov, [facility] [place] [facility] [address] [id number] [place] [address] Oct, [facility] [place] [facility] [address] [id number] [place] [address] Sep, [facility] [place] [facility] [address] [id number] [place] [address] Aug, [facility] [place] [facility] [address] [id number] [place] [address] Aug, [facility] [place] [facility] [address] [id number] [place] [address] Aug, [facility] [place] [facility] [address] [id number] [place] [address] Aug, [facility] [place] [facility] [address] [id number] [place] [address] Jul, [facility] [place] [facility] [address] [id number] [place] [address] Jul, [facility] [place] [facility] [address] [facility] [id number] [place] [address] Jun, [facility] [place] [facility] [address] [id number] [place] [address] Jun, [facility] [place] [facility] [address] [id number] [place] [address] Jun, [facility] [place] [facility] [address] [id number] [place] [address] Jun, [facility] [place] [facility] [address] [id number] [place] [address] May, [facility] [place] [facility] [address] [id number] [place] [address] 18 May, 2012 [facility] [place] [facility] [address] [id number] [place] [address] 14 May, 2012 [facility] [place] [facility] [address] [id number] [place] [address] 10 May, 2012 [facility] [place] [facility] [address] [id number] [place] [address] 04 May, 2012 [facility] [place] [facility] [address] [id number] [place] [address] 30 Apr, 2012 [facility] [place] [facility] [address] [id number] [place] [address] Apr, [facility] [place] [facility] [address] [id number] [place] [address] Mar, [facility] [place] [facility] [address] [id number] [place] [address] Mar, [facility] [place] [facility] [address] [id number] [place] [address] Mar, [facility] [place] [facility] [address] [id number] [place] [address] Feb, [facility] [place] [facility] [address] [id number] [place] [address] January, [facility] [place] [facility] [address] [id number] [place] [address] Nov, [facility] [place] [facility] [address] [id number] [place] [address] Nov, [facility] [place] [facility] [address] [id number] [place] [address] Nov, [facility] [place] [facility] [address] [id number] [place] [address] 2011 [facility] [place] [facility] [address] [id number] [place] [address] Nov, [facility] [place] [facility] [address] [id number] [place] [address] 23 Oct, 2011 [facility] [address] [id number] [place] [address] Oct, [facility] [address] [id number] [place] [address] Oct, [facility] [address] [address] [id number] [place] [address] 13 Oct, 2011 [facility] [address] [id number] [place] [address] 10 Oct, 2011 [facility] [address] [id number] [place] [address] Sep, [facility] [address] [id number] [place] [address] Sep, [facility] [address] [id number] [place] [address] Sep, [facility] [address] [id number] [place] [address] Sep, [facility] [address] [id number] [place] [address] Sep, [facility] [address] [id number] [place] [address] Sep, [facility] [address] [id number] [place] [address] Sep, [facility] [address] [id number] [place] [address] Aug, [facility] [address] [id number] [place] [address] Aug, [facility] [address] [id number] [place] [address] 16 Aug, 2011 [facility] [address] [id number] [place] [address] Aug, [facility] [place] [facility] [address] [id number] [place] [address] 09 Aug, 2011 [facility] [place] [facility] [address] [id number] [place] [address] Aug, [facility] [place] [facility] [address] [id number] [place] [address] Jun, [facility] [place] [facility] [address] [id number] [place] [address] Jun, [facility] [place] [facility] [address] [id number] [place] [address] Jun, [facility] [place] [facility] [address] [id number] [place] [address] Jun, [facility] [place] [facility] [address] [id number] [place] [address] Apr, [facility] [place] [facility] [address] [id number] [place] [address] Mar, [facility] [place] [facility] [address] [id number] [place] [address] Feb, [facility] [place] [facility] [address] [id number], [place] [address] Sep, [facility] [place] [facility] [address] [id number], [place] [address] Aug, [facility] [place] [facility] [address] [id number], [place] [address] Aug, [facility] [place] [facility] [address] [id number] [place] [address] Jul, [facility] [place] [facility] [address] [id number], [place] [address] Jul, [facility] [place] [facility] [address] [id number], [place] [address] Jul, [facility] [place] [facility] [address] [id number], [place] [address] Jun, [facility] [address] [id number], [place] [address] Apr, [facility] [id number], [place] [address] Oct, [facility] [id number], [place] [address] Aug, [facility] [id number], [place] [address] Jun, [facility] [id number], [place] [address] Feb, [facility] [id number], [place] [address] Aug, [facility] [id number], [place] [address] Jun, [facility] [id number], [place] [address] Jun, IMMUNIZATIONS No Known Immunizations SOCIAL HISTORY Never Assessed REASON FOR VISIT HTN f/u---DBennettRN, c/o headache daily in protestant, has been off of medications for 2-3 weeks, headaches have resolved PLAN OF CARE Activity Details Follow Up 4 Weeks Reason:Blood pressure/MRI results VITAL SIGNS Height 72 in 2017-05-12 Weight 227 lbs 2017-05-12 Temperature 98.0 degrees Fahrenheit 2017-05-12 Heart Rate 80 bpm 2017-05-12 Respiratory Rate 20 2017-05-12 BMI 30.78 kg/m2 2017-05-12 Blood pressure systolic 138 mmHg 2017-05-12 Blood pressure diastolic 100 mmHg 2017-05-12 MEDICATIONS Medication Instructions Dosage Frequency Start Date End Date Duration Status Prazosin HCl 1 MG Orally Once a day 1 capsule at bedtime 24h Apr, 30 day(s) Active Cymbalta 60 MG Orally Once a day in the morning 2 capsule 30 days Active Pantoprazole Sodium 40 mg Orally Once a day 1 tablet 24h 90 days Active Aspir-81 81 MG Orally Once a day 1 tablet 24h Active Abilify 5 MG Orally Once a day 1 tablet 24h Sep, 30 days Active Xanax 1 MG Orally three times a day 1 tablet 8h January, 30 days Active Hydrocodone-Acetaminophen 10-325 MG/15ML Orally every 6 hrs 5 ml as needed 6h Active RESULTS No Results PROCEDURES No Known [...]
--- OUTSIDE RECORDS SUMMARY | 2018-11-24 04:48 | XMS REPORT ---
Author Author NAHOMI FLORES Organization [employer] Address Unknown Phone Unavailable Care Team Providers Care Telephone Answering Service Operator Name Role Phone NAHOMI FLORES Unavailable Allergies [...]
--- OUTSIDE RECORDS SUMMARY | 2018-11-24 04:49 | XMS REPORT ---
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 Active 02930446 Problem Chronic pain syndrome G89.4 Active 37132110 Problem Portal vein thrombosis I81 Active 86721182 Problem Chronic hepatitis C without hepatic coma B18.2 Active 529160412 Problem Elevated platelet count D47.3 Active 381896972 Problem Other chronic pain G89.29 Active 49836636 Problem Major depressive disorder, recurrent, moderate F33.1 Active 09646625 Problem Urinary hesitancy R39.11 Active 8047249 Problem Gastroesophageal reflux disease, esophagitis presence not specified K21.9 Active 529103498 ALLERGIES No Information ENCOUNTERS Encounter Location Date Diagnosis [facility] [id number] [place] [address] 57948- 7309 Sep, Chronic pain syndrome G89.4 [facility] [address] [address] 9882 Sep, [facility] [id number] [place] [address] 44859- 5362 Sep, [facility] [id number] [place] [address] 20081- 3031 Sep, [facility] [id number] [place] [address] 03677- 0320 Sep, [facility] [id number] [place] [address] 58553- 9395 Sep, [facility] [id number] [place] [address] 70113- 1526 Sep, [facility] [id number] [place] [address] 98295- 1177 Aug, [facility] [id number] [place] [address] 76798- 7097 Aug, Portal vein thrombosis I81 ; Chronic pain syndrome G89.4 ; Other acute pulmonary embolism without acute cor pulmonale I26.99 and Chronic hepatitis C without hepatic coma B18.2 [facility] [id number] [place] [address] 77289- 9865 Aug, [facility] [id number] [place] [address] 24725- 1557 Aug, [facility] [id number] [place] [address] 79494- 6329 Jul, Major depressive disorder, recurrent, moderate F33.1 and Posttraumatic stress disorder F43.10 [facility] [id number] [place] [address] 43366- 9886 Jul, Gastroesophageal reflux disease, esophagitis presence not specified K21.9 [facility] [id number] [place] [address] 10863- 2963 Jun, [facility] [id number] [place] [address] 79221- 3733 Jun, [facility] [id number] [place] [address] 41816- 6457 Jun, Posttraumatic stress disorder F43.10 and 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 [facility] [id number] [place] [address] 63088- 7986 Apr, [facility] [id number] [place] [address] 93943- 8674 Apr, Mass of sinus R22.0 ; 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 and Elevated platelet count D47.3 [facility] [address] [place] [address] 35204- 2929 Apr, Severe major depression with psychotic features F32.3 and Posttraumatic stress disorder F43.10 [facility] [id number] [place] [address] 44662- 2024 January, [facility] [id number] [place] [address] 55120- 8926 January, Posttraumatic stress disorder F43.10 and Severe major depression with psychotic features F32.3 [facility] [id number] [place] [address] 06962- 8364 Dec, 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 and Elevated platelet count D47.3 [facility] [id number] [place] [address] 81259- 7353 Dec, [facility] [id number] [place] [address] 48303- 5682 Dec, Low energy R53.83 ; 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 ; Gastroesophageal reflux disease, esophagitis presence not specified K21.9 and Urinary hesitancy R39.11 [facility] [address] [place] [address] 87074- 2581 Dec, Posttraumatic stress disorder F43.10 and Severe major depression with psychotic features F32.3 [facility] [id number] [place] [address] 17340- 7800 Oct, [facility] [id number] [place] [address] 21973- 3985 Sep, Mass of sinus R22.0 [facility] [id number] [place] [address] 46253- 3494 Sep, Dysuria R30.0 ; Low back pain M54.5 ; Other chronic pain G89.29 ; Poor nutrition E63.9 ; Gastroesophageal reflux disease, esophagitis presence not specified K21.9 and Mass of sinus R22.0 [facility] [id number] [place] [address] 70376- 1391 Sep, Posttraumatic stress disorder F43.10 and Severe major depression with psychotic features F32.3 [facility] [address] 58788- 2908 Sep, [facility] [address] 21523- 4437 Aug, [facility] [address] 47975- 5486 Aug, Encounter for immunization Z23 [facility] [address] 55474- 9620 Jul, Posttraumatic stress disorder F43.10 ; Severe major depression with psychotic features F32.3 and Major depressive disorder, recurrent, moderate F33.1 [facility] [id number] [place] [address] 77484- 7637 Jun, [facility] [id number] [place] [address] 70460- 9092 Jun, [facility] [id number] [place] [address] 14109- 4685 May, [facility] [id number] [place] [address] 96837- 7834 Apr, [facility] [id number] [place] [address] 24740- 6046 Apr, Posttraumatic stress disorder F43.10 and Severe major depression with psychotic features F32.3 [facility] [id number] [place] [address] 33972- 6533 Mar, [facility] [address] 24915- 6634 Feb, [facility] [address] [address]- 3914 January, [facility] [id number] [place] [address] 64931- 8129 January, Posttraumatic stress disorder F43.10 and Severe major depression with psychotic features F32.3 [facility] [id number] [place] [address] 38813- 3533 Dec, [facility] [id number] [place] [address] 96889- 9153 Nov, [facility] [id number] [place] [address] 48616- 0711 Nov, [facility] [id number] [place] [address] 23335- 0054 Oct, Posttraumatic stress disorder F43.10 and Severe major depression with psychotic features F32.3 [facility] [id number] [place] [address] 31118- 2430 Sep, Encounter for immunization Z23 ; Posttraumatic stress disorder F43.10 and Severe major depression with psychotic features F32.3 [facility] [address] [place] [address] 97394- 8953 Aug, [facility] [address] [address]- 0381 Aug, [facility] [address] [place] [address] 71730- 6915 Jul, Encounter for immunization Z23 ; Posttraumatic stress disorder F43.10 and Severe major depression with psychotic features F32.3 [facility] [id number] [place] [address] 30362- 7885 Jun, [facility] [address] [place] [address] 59582- 0630 Jun, Mass of sinus R22.0 ; Low back pain M54.5 and Paroxysmal atrial fibrillation I48.0 [facility] [address] [facility] [id number] [address]- 9121 May, [facility] [id number] [place] [address] 518824- 1119 Apr, Posttraumatic stress disorder 309.81 and Major depressive disorder, recurrent episode, moderate 296.32 [facility] [id number] [place] [address] 95140- 6629 Apr, [facility] [address] [facility] [id number] 8631 Mar, Major depressive disorder, recurrent episode, moderate 296.32 and Posttraumatic stress disorder 309.81 [facility] [id number] [place] [address] 893543- 7529 Feb, [facility] [address] [address]- 0052 Feb, [facility] [id number] [address]- 1398 January, [facility] [address] [address]- 0555 January, [facility] [address] 9352 January, [facility] [address] [address]- 2176 Dec, [facility] [address] [address]- 6733 Dec, [facility] [address] 5085 Nov, [facility] [address] 5309 Nov, [facility] [address] [address]- 2970 Nov, [facility] [id number] [place] [address] [place] [address]- 4231 06 Nov, 2014 [facility] [place] [facility] [address] [id number] [place] [address]- 5409 Nov, 2014 [facility] [place] [facility] [address] [id number] [place] [address]- 8356 Nov, 2014 [facility] [place] [facility] [address] [id number] [place] [address]- 3585 Nov, 2014 [facility] [place] [facility] [address] [id number] [place] [address]- 2148 Nov, 2014 [facility] [place] [facility] [address] [id number] [place] [address]- 9230 Oct, 2014 [facility] [place] [facility] [address] [id number] [place] [address]- 0644 Oct, 2014 [facility] [place] [facility] [address] [id number] [place] [address]- 9349 16 Oct, 2014 [facility] [place] [facility] [address] [id number] [place] [address]- 1444 16 Oct, 2014 [facility] [place] [facility] [address] [id number] [place] [address]- 0540 16 Oct, 2014 [facility] [place] [facility] [address] [id number] [place] [address]- 9942 16 Oct, 2014 [facility] [place] [facility] [address] [id number] [place] [address]- 6251 Oct, 2014 [facility] [place] [facility] [address] [id number] [place] [address]- 5098 Oct, 2014 [facility] [place] [facility] [address] [id number] [place] [address]- 9178 Oct, 2014 [facility] [place] [facility] [address] [id number] [place] [address]- 9922 06 Oct, 2014 [facility] [place] [facility] [address] [id number] [place] [address]- 5850 Oct, 2014 [facility] [place] [facility] [address] [id number] [place] [address]- 9198 Oct, 2014 [facility] [place] [facility] [address] [id number] [place] [address]- 0901 Oct, 2014 [facility] [place] [facility] [address] [id number] [place] [address]- 7117 Oct, 2014 [facility] [place] [facility] [address] [id number] [place] [address]- 2753 Oct, 2014 [facility] [place] [facility] [address] [id number] [place] [address]- 8867 Oct, 2014 [facility] [place] [facility] [address] [id number] [place] [address]- 9277 Sep, [facility] [place] [facility] [address] [facility] [id number] [place] [address]- 3215 Sep, [facility] [place] [facility] [address] [id number] [place] [address]- 9174 Sep, [facility] [place] [facility] [address] [id number] [place] [address]- 7953 Sep, [facility] [place] [facility] [address] [facility] [id number] [place] [address]- 1535 Aug, [facility] [place] [facility] [address] [id number] [place] [address]- 8792 Aug, [facility] [place] [facility] [address] [id number] [place] [address]- 3125 Aug, [facility] [place] [facility] [address] [id number] [place] [address]- 4894 Aug, [facility] [place] [facility] [address] [id number] [place] [address]- 8131 Aug, [facility] [place] [facility] [address] [facility] [id number] [place] [address]- 6112 Aug, [facility] [place] [facility] [address] [id number] [place] [address]- 7076 Aug, [facility] [place] [facility] [address] [id number] [place] 3408 Aug, [facility] [place] [facility] [address] [id number] [place] 3313 Aug, [facility] [place] [facility] [address] [id number] [place] 5798 Aug, [facility] [place] [facility] [address] [id number] [place] [address]- 8399 Aug, [facility] [place] [facility] [address] [id number] [place] 7231 Aug, [facility] [place] [facility] [address] [id number] [place] [address]- 3488 Aug, [facility] [place] [facility] [address] [id number] [place] [address]- 2324 Aug, [facility] [place] [facility] [address] [id number] [place] [address]- 3667 Aug, [facility] [place] [facility] [address] [id number] [place] [address]- 2708 Aug, [facility] [place] [facility] [address] [id number] [place] [address]- 5094 Jul, [facility] [place] [facility] [address] [id number] [place] [address]- 1070 Jul, [facility] [place] [facility] [address] [id number] [place] [address]- 3215 Jul, [facility] [place] [facility] [address] [id number] [place] [address]- 9547 Jul, [facility] [place] [facility] [address] [id number] [place] [address]- 5199 Jul, [facility] [place] [facility] [address] [id number] [place] [address]- 3880 Jul, [facility] [place] [facility] [address] [id number] [place] [address]- 4434 Jun, [facility] [place] [facility] [address] [id number] [place] [address]- 7422 Jun, [facility] [place] [facility] [address] [id number] [place] [address]- 1524 Jun, [facility] [place] [facility] [address] [id number] [place] [address]- 7355 Jun, [facility] [place] [facility] [address] [id number] [place] [address]- 0223 Jun, [facility] [place] [facility] [address] [id number] [place] [address]- 0617 Jun, [facility] [place] [facility] [address] [id number] [place] [address]- 5152 Jun, [facility] [place] [facility] [address] [id number] [place] [address]- 3052 Jun, [facility] [place] [facility] [address] [id number] [place] [address]- 7300 Jun, [facility] [place] [facility] [address] [id number] [place] [address]- 0957 Jun, [facility] [place] [facility] [address] [id number] [address]- 5289 Jun, [facility] [place] [facility] [address] [id number] [address]- 0655 Jun, [facility] [place] [facility] [address] [id number] [place] [address]- 8872 Jun, [facility] [place] [facility] [address] [id number] [place] [address]- 0360 Jun, [facility] [place] [facility] [address] [id number] [place] 7504 16 May, 2014 [facility] [place] [facility] [address] [id number] [place] [address]- 2928 May, [facility] [place] [facility] [address] [id number] [place] [address]- 7148 May, [facility] [place] [facility] [address] [id number] [place] [address]- 6311 May, [facility] [place] [facility] [address] [id number] [place] [address]- 7645 Apr, [facility] [place] [facility] [address] [id number] [place] [address]- 1902 Apr, [facility] [place] [facility] [address] [id number] [place] [address]- 6644 Apr, [facility] [place] [facility] [address] [id number] [place] [address]- 1067 Apr, [facility] [place] [facility] [address] [id number] [place] [address]- 9363 Mar, [facility] [place] [facility] [address] [id number] [place] [address]- 6048 Mar, [facility] [place] [facility] [address] [id number] [place] [address]- 0284 Mar, [facility] [place] [facility] [address] [id number] [place] [address]- 3532 Mar, [facility] [place] [facility] [address] [id number] [place] [address]- 1343 Mar, [facility] [place] [facility] [address] [id number] [place] [address]- 0261 Mar, [facility] [place] [facility] [address] [id number] [place] [address]- 5914 Mar, [facility] [place] [facility] [address] [id number] [place] [address]- 8110 Mar, [facility] [place] [facility] [address] [id number] [place] [address]- 8831 Mar, [facility] [place] [facility] [address] [id number] [place] [address]- 9260 Mar, [facility] [place] [facility] [address] [id number] [place] [address]- 7348 Mar, [facility] [place] [facility] [address] [id number] [place] [address]- 3970 Mar, [facility] [place] [facility] [address] [id number] [place] [address]- 9131 Feb, [facility] [place] [facility] [address] [id number] [place] [address]- 4370 Feb, [facility] [place] [facility] [address] [id number] [place] [address]- 9613 Feb, [facility] [place] [facility] [address] [id number] [place] [address]- 3161 Feb, [facility] [place] [facility] [address] [id number] [place] [address]- 8150 Feb, [facility] [place] [facility] [address] [id number] [place] [address]- 0630 Feb, [facility] [place] [facility] [address] [id number] [place] [address]- 5475 January, [facility] [place] [facility] [address] [id number] [place] [address]- 8612 January, [facility] [place] [facility] [address] [id number] [place] [address]- 8675 January, [facility] [place] [facility] [address] [id number] [place] [address]- 8646 January, [facility] [place] [facility] [address] [id number] [place] [address]- 5869 January, [facility] [place] [facility] [address] [id number] [place] [address]- 3429 January, [facility] [place] [facility] [address] [id number] [place] [address]- 5766 Nov, [facility] [place] [facility] [address] [id number] [place] [address]- 1680 Nov, [facility] [place] [facility] [address] [id number] [place] [address]- 8819 Nov, [facility] [place] [facility] [address] [id number] [place] [address]- 7989 Nov, [facility] [place] [facility] [address] [id number] [place] [address]- 2328 Oct, [facility] [place] [facility] [address] [id number] [place] [address]- 5646 Oct, [facility] [place] [facility] [address] [id number] [place] [address]- 9209 Sep, [facility] [place] [facility] [address] [id number] [place] [address]- 2286 Sep, [facility] [place] [facility] [address] [id number] [place] [address]- 7098 Sep, [facility] [place] [facility] [address] [id number] [place] [address]- 0796 Sep, [facility] [place] [facility] [address] [id number] [place] [address]- 2218 Sep, [facility] [place] [facility] [address] [id number] [address]- 9940 Aug, [facility] [place] [facility] [address] [id number] [address]- 6086 Aug, [facility] [place] [facility] [address] [id number] [place] [address]- 0899 Jul, [facility] [place] [facility] [address] [id number] [place] [address]- 8739 Jul, [facility] [place] [facility] [address] [id number] [place] [address]- 2599 Jul, [facility] [place] [facility] [address] [id number] [place] [address]- 8147 Jun, [facility] [address] [id number] [place] [address]- 1436 Jun, [facility] [address] [id number] [place] [address] Jun, [facility] [address] [id number] [place] [address] Jun, [facility] [address] [id number] [place] [address] Apr, [facility] [address] [id number] [place] [address] Mar, [facility] [address] [id number] [place] [address] Mar, [facility] [address] [id number] [place] [address] January, [facility] [address] [id number] [place] [address] Dec, [facility] [address] [id number] [place] [address] Dec, [facility] [address] [id number] [place] [address] Nov, [facility] [address] [id number] [place] [address] Nov, [facility] [address] [id number] [place] [address] Nov, [facility] [address] [id number] [place] [address] 2012 [facility] [address] [id number] [place] [address] Nov, [facility] [address] [id number] [place] [address] Nov, [facility] [place] [facility] [address] [id number] [place] [address] Oct, [facility] [place] [facility] [address] [id number] [place] [address] Sep, [facility] [place] [facility] [address] [id number] [place] [address] Aug, [facility] [place] [facility] [address] [id number] [place] [address] Aug, [facility] [place] [facility] [address] [id number] [place] [address] Aug, [facility] [place] [facility] [address] [id number] [place] [address] Aug, [facility] [place] [facility] [address] [facility] [id number] [place] [address] Jul, [facility] [place] [facility] [address] [id number] [place] [address] Jul, [facility] [place] [facility] [address] [id number] [place] [address] Jun, [facility] [place] [facility] [address] [facility] [id number] [place] [address] Jun, [facility] [place] [facility] [address] [facility] [id number] [place] [address] Jun, [facility] [place] [facility] [address] [id number] [place] [address] 18 Jun, 2012 [facility] [place] [facility] [address] [id number] [place] [address] 21 May, 2012 [facility] [place] [facility] [address] [id number] [place] [address] 18 May, 2012 [facility] [place] [facility] [address] [facility] [id number] [place] [address] 14 May, 2012 [facility] [place] [facility] [address] [id number] [place] [address] 10 May, 2012 [facility] [address] [id number] [place] [address] May, [facility] [place] [facility] [address] [id number] [place] [address] Apr, [facility] [place] [facility] [address] [id number] [place] [address] Apr, [facility] [place] [facility] [address] [id number] [place] [address] Mar, [facility] [place] [facility] [address] [id number] [place] [address] Mar, [facility] [place] [facility] [address] [id number] [place] [address] Mar, [facility] [address] [id number] [place] [address] Feb, [facility] [place] [facility] [address] [id number] [place] [address] January, [facility] [place] [facility] [address] [id number] [place] [address] Nov, [facility] [place] [facility] [address] [facility] [id number] [place] [address] Nov, [facility] [place] [facility] [address] [id number] [place] [address] Nov, [facility] [place] [facility] [address] [id number] [place] [address] Nov, [facility] [place] [facility] [address] [id number] [place] [address] Nov, [facility] [place] [facility] [address] [facility] [id number] [place] [address] Oct, [facility] [place] [facility] [address] [facility] [id number] [place] [address] Oct, [facility] [place] [facility] [address] [id number] [place] [address] Oct, [facility] [address] [id number] [place] [address] Oct, [facility] [address] [id number] [place] [address] Oct, [facility] [address] [id number] [place] [address] Sep, [facility] [address] [id number] [place] [address] Sep, [facility] [address] [id number] [place] [address] Sep, [facility] [address] [id number] [place] [address] Sep, [facility] [address] [id number] [place] [address] Sep, [facility] [address] [id number] [place] [address] Sep, [facility] [address] [id number] [place] [address] Sep, [facility] [address] [id number] [place] [address] Aug, [facility] [address] [id number] [place] [address] Aug, [facility] [address] [id number] [place] [address] Aug, [facility] [place] [facility] [address] [id number] [place] [address] Aug, [facility] [address] [id number] [place] [address] Aug, [facility] [address] [id number] [address] 06 Aug, 2011 [facility] [place] [facility] [address] [id number] [place] [address] 25 Jun, 2011 [facility] [place] [facility] [address] [id number] [place] [address] 20 Jun, 2011 [facility] [place] [facility] [address] [id number] [place] [address] 14 Jun, 2011 [facility] [place] [facility] [address] [id number] [place] [address] 14 Jun, 2011 [facility] [place] [facility] [address] [id number] [place] [address] 16 Apr, 2011 [facility] [place] [facility] [address] [id number] [place] [address] Mar, [facility] [place] [facility] [address] [id number] [place] [address] Feb, [facility] [place] [facility] [address] [id number] [place] [address] Sep, [facility] [place] [facility] [address] [id number] [place] [address] Aug, [facility] [place] [facility] [address] [id number] [place] [address] Aug, [facility] [place] [facility] [address] [id number] [address] Jul, [facility] [place] [facility] [address] [id number] [place] [address] Jul, [facility] [place] [facility] [address] [id number] [place] [address] Jul, [facility] [place] [facility] [address] [id number] [place] [address] Jun, [facility] [place] [facility] [address] [id number] [place] [address] Apr, [facility] [place] [facility] [address] [facility] [id number] [place] [address] 17 Oct, 2009 [facility] [address] [id number] [address] Aug, [facility] [address] [id number] [address] Jun, [facility] [address] [id number] [address] Feb, [facility] [address] [id number] [address] Aug, [facility] [address] [id number] [address] Jun, [facility] [address] [id number] [address] Jun, IMMUNIZATIONS No Known Immunizations SOCIAL HISTORY Never Assessed REASON FOR VISIT Refill Request PLAN OF CARE VITAL SIGNS MEDICATIONS Medication Instructions Dosage Frequency Start Date End Date Duration Status Pantoprazole Sodium 40 mg Orally Once a day 1 tablet 24h 90 days Active RESULTS No Results PROCEDURES No [...]
--- OUTSIDE RECORDS SUMMARY | 2018-11-24 04:49 | XMS REPORT ---
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
--- OUTSIDE RECORDS SUMMARY | 2018-11-24 04:50 | XMS REPORT | CCD ---
Author Author Alissa Jimenez Organization [facility] Address [address] [place] [address] Phone Care Team Providers Care Environmental Conservation Officer Name Role Phone PP Unavailable CCM Unavailable Summary Purpose Interface Exchange Insurance Providers Payer name Policy type / Coverage type Covered libertarian ID Effective Begin Date Effective End Date [employer] - Medicaid [id number] 2017 Unknown Family history Father Diagnosis Age At Onset No Known Diseases N/A Mother Diagnosis Age At Onset No Known Diseases N/A Social History Social History Element Codes Description Effective Dates Marital status Unknown Single 09/30/2017 Employment Unknown Currently unemployed 09/30/[address]: 2840983 Former smoker 09/30/[address]: 872762919 Never drinks alcohol 09/30/2017 On Disability Unknown Yes 09/30/2017 Allergies, Adverse Reactions, Alerts Substance Reaction Codes Entered Date Inactivated Date Status NO KNOWN DRUG ALLERGIES Unknown 09/30/2017 No Inactive Date Active Past Medical History Illness Codes Condition Status Onset Date Resolved Date Chronic pain syndrome ICD-9: 338.4 ICD-10: G89.4 Active 09/30/2017 Unknown Encounter for immunization ICD-9: V03.82 ICD-10: Z23 Active 06/20/2018 Unknown Essential (primary) hypertension ICD-9: 401.1 ICD-10: I10 Active 05/09/2018 Unknown Paroxysmal atrial fibrillation ICD-9: 427.31 ICD-10: I48.0 Active 09/30/2017 Unknown Diverticulitis of large intestine without perforation or abscess without bleeding ICD-9: 562.11 ICD-10: K57.32 Active 08/26/2018 Unknown Other specified hypothyroidism ICD-9: 244.8 ICD-10: E03.8 Active 08/19/2018 Unknown Supraventricular tachycardia ICD-9: 427.89 ICD-10: I47.1 Active 08/19/2018 Unknown Dysphagia, oropharyngeal phase ICD-9: 787.22 ICD-10: R13.12 Active 08/19/2018 Unknown Generalized anxiety disorder ICD-9: 300.00 ICD-10: F41.1 Active 09/30/2017 Unknown Major depressive disorder, single episode, moderate ICD-9: 296.22 ICD-10: F32.1 Active 09/30/2017 Unknown Other hydrocele ICD-9 : 603.8 ICD-10: N43.2 Active 03/11/2018 Unknown Acute bronchitis due to other specified organisms ICD-9: 466.0 ICD-10: J20.8 Active 06/27/2018 Unknown Left lower quadrant pain ICD-9: 789.09 ICD-10: R10.32 Active 01/18/2018 Unknown Low back pain ICD-9: 724.2 ICD-10: M54.5 Active 09/30/2017 Unknown Gastro-esophageal reflux disease without esophagitis ICD-9: 530.81 ICD-10: K21.9 Active 09/30/2017 Unknown Headache ICD-9: 784.0 ICD-10: R51 Active 09/30/2017 Unknown Problems Condition Codes Effective Dates Condition Status Chronic pain syndrome ICD-9: 338.4 ICD-10: G89.4 09/30/2017 Active Encounter for immunization ICD-9: V03.82 ICD-10: Z23 06/20/2018 Active Essential (primary) hypertension ICD-9: 401.1 ICD-10: I10 05/09/2018 Active Paroxysmal atrial fibrillation ICD-9: 427.31 ICD-10: I48.0 09/30/2017 Active Diverticulitis of large intestine without perforation or abscess without bleeding ICD-9: 562.11 ICD-10: K57.32 08/26/2018 Active Other specified hypothyroidism ICD-9: 244.8 ICD-10: E03.8 08/19/2018 Active Supraventricular tachycardia ICD-9: 427.89 ICD-10: I47.1 08/19/2018 Active Dysphagia, oropharyngeal phase ICD-9: 787.22 ICD-10: R13.12 08/19/2018 Active Generalized anxiety disorder ICD-9: 300.00 ICD-10: F41.1 09/30/2017 Active Major depressive disorder, single episode, moderate ICD-9: 296.22 ICD-10: F32.1 09/30/2017 Active Other hydrocele ICD-9 : 603.8 ICD-10: N43.2 03/11/2018 Active Acute bronchitis due to other specified organisms ICD-9: 466.0 ICD-10: J20.8 06/27/2018 Active Left lower quadrant pain ICD-9: 789.09 ICD-10: R10.32 01/18/2018 Active Low back pain ICD-9: 724.2 ICD-10: M54.5 09/30/2017 Active Gastro-esophageal reflux disease without esophagitis ICD-9: 530.81 ICD-10: K21.9 09/30/2017 Active Headache ICD-9: 784.0 ICD-10: R51 09/30/2017 Active Medications Medication Codes Instructions Start Date Stop Date Status Fill Instructions oxycodone 5 mg tablet RxNorm: 1232277 1 Tablet(s) PO QID as needed for pain 11/16/2018 12/15/2018 Active Levothroid 25 mcg tablet RxNorm: 545166 1 Tablet(s) PO daily No Stop Date Active alprazolam 1 mg tablet RxNorm: 100318 1 Tablet(s) PO TID as needed anxiety 11/09/2018 12/08/2018 Active Eliquis 5 mg tablet RxNorm: 0782535 1 Tablet(s) PO BID 2018 No Stop Date Active oxycodone 5 mg tablet RxNorm: 9699964 1 Tablet(s) PO QID as needed for pain 11/09/2018 11/15/2018 Inactive cyclobenzaprine 5 mg tablet RxNorm: 431002 1 Tablet(s) PO TID as needed muscle spasms 10/31/2018 No Stop Date Active cyclobenzaprine 5 mg tablet RxNorm: 992035 1 Tablet(s) PO TID as needed muscle spasms 10/25/2018 10/30/2018 Inactive Eliquis 5 mg tablet RxNorm: 0924472 1 Tablet(s) PO BID 201811/08/2018 Inactive oxycodone 5 mg tablet RxNorm: 3753355 1 Tablet(s) PO QID as needed for pain 10/04/2018 11/02/2018 Inactive oxycodone 5 mg tablet RxNorm: 0159482 1 Tablet(s) PO QID as needed for pain 10/04/2018 10/03/2018 Inactive alprazolam 1 mg tablet RxNorm: 163356 1 Tablet(s) PO TID as needed anxiety 10/04/2018 11/02/2018 Inactive alprazolam 1 mg tablet RxNorm: 742039 1 Tablet(s) PO TID as needed anxiety 09/02/2018 10/01/2018 Inactive Eliquis 5 mg tablet RxNorm: 1895887 1 Tablet(s) PO BID 201710/03/2018 Inactive carvedilol 6.25 mg tablet RxNorm: 308237 1 Tablet(s) PO BID 10/18/2018 Inactive oxycodone 5 mg tablet RxNorm: 8399260 1 Tablet(s) PO QID as needed for pain 09/02/2018 10/01/2018 Inactive Flagyl 500 mg tablet RxNorm: 892158 1 Tablet(s) PO TID 201709/04/2018 Inactive metoprolol succinate ER 25 mg tablet,extended release 24 hr RxNorm: 273249 1/2 Tablet(s) PO daily 08/19/2018 10/19/2018 Inactive oxycodone 5 mg tablet RxNorm: 1658700 1 Tablet(s) PO QID as needed for pain 08/02/2018 08/31/2018 Inactive alprazolam 1 mg tablet RxNorm: 780269 1 Tablet(s) PO TID as needed anxiety 08/02/2018 08/31/2018 Inactive Levothroid 25 mcg tablet RxNorm: 011463 1 Tablet(s) PO daily 2018 Inactive alprazolam 1 mg tablet RxNorm: 281696 1 Tablet(s) PO TID as needed anxiety 07/05/2018 08/01/2018 Inactive oxycodone 5 mg tablet RxNorm: 7445208 1 Tablet(s) PO QID as needed for pain 07/05/2018 08/01/2018 Inactive Levothroid 25 mcg tablet RxNorm: 170811 1 Tablet(s) PO daily 08/01/2018 Inactive Kenalog 40 mg/mL suspension for injection RxNorm: 3605822 Milliliter(s) Inj 06/27/2018 06/27/2018 Inactive doxycycline hyclate 100 mg tablet RxNorm: 5841757 1 Tablet(s) PO BID 06/27/2018 07/06/2018 Inactive alprazolam 1 mg tablet RxNorm: 430554 1 Tablet(s) PO TID as needed anxiety 06/08/2018 07/04/2018 Inactive Cymbalta 30 mg capsule,delayed release RxNorm: 231559 1 Capsule(s) PO daily 06/07/2018 06/08/2018 Inactive Bystolic 5 mg tablet RxNorm: 122501 1 Tablet(s) PO daily 201706/09/2018 Inactive oxycodone 5 mg tablet RxNorm: 1702598 1 Tablet(s) PO QID as needed for pain 06/07/2018 07/04/2018 Inactive Cymbalta 30 mg capsule,delayed release RxNorm: 714249 1 Capsule(s) PO daily 05/09/2018 06/06/2018 Inactive alprazolam 1 mg tablet RxNorm: 035139 1 Tablet(s) PO TID as needed anxiety 04/05/2018 05/03/2018 Inactive oxycodone 5 mg tablet RxNorm: 6350484 1 Tablet(s) PO QID as needed for pain 04/05/2018 05/04/2018 Inactive cyclobenzaprine 5 mg tablet RxNorm: 912299 1 Tablet(s) PO TID as needed muscle spasms 03/18/2018 06/01/2018 Inactive mupirocin 2 % topical cream RxNorm: 606345 1 Application TOP BID 03/11/2018 06/08/2018 Inactive hydrocodone 5 mg-acetaminophen 325 mg tablet RxNorm: 271910 1 Tablet(s) PO TID as needed for pain 03/10/2018 04/04/2018 Inactive alprazolam 1 mg tablet RxNorm: 062214 1 Tablet(s) PO TID as needed anxiety 03/10/2018 04/04/2018 Inactive hydrocodone 5 mg-acetaminophen 325 mg tablet RxNorm: 032089 1 Tablet(s) PO TID as needed for pain 02/09/2018 03/09/2018 Inactive alprazolam 1 mg tablet RxNorm: 704234 1 Tablet(s) PO TID as needed anxiety 02/09/2018 03/09/2018 Inactive alprazolam 1 mg tablet RxNorm: 530618 1 Tablet(s) PO TID as needed anxiety 01/10/2018 02/08/2018 Inactive pantoprazole 40 mg tablet,delayed release RxNorm: 198544 1 Tablet(s) PO daily 12/27/2017 06/08/2018 Inactive pantoprazole 40 mg tablet,delayed release RxNorm: 184216 1 Tablet(s) PO daily 12/27/2017 12/26/2017 Inactive hydrocodone 5 mg-acetaminophen 325 mg tablet RxNorm: 880101 1 Tablet(s) PO TID as needed for pain 12/09/2017 01/07/2018 Inactive alprazolam 1 mg tablet RxNorm: 656496 1 Tablet(s) PO TID as needed anxiety 12/09/2017 01/07/2018 Inactive alprazolam 1 mg tablet RxNorm: 518044 1 Tablet(s) PO TID as needed anxiety 11/09/2017 12/08/2017 Inactive hydrocodone 5 mg-acetaminophen 325 mg tablet RxNorm: 644381 1 Tablet(s) PO TID as needed for pain 11/09/2017 12/08/2017 Inactive prednisone 20 mg tablet RxNorm: 850620 2 Tablet(s) PO daily 10/24/2017 Inactive hydrocodone 5 mg-acetaminophen 325 mg tablet RxNorm: 309182 1 Tablet(s) PO TID as needed for pain 10/14/2017 2017 Inactive Multaq 400 mg tablet RxNorm: 500417 1 Tablet(s) PO BID managed by cardiology No Start Date Active Levothroid 25 mcg tablet RxNorm: 860610 1 Tablet(s) PO daily No Start Date 07/04/2018 Inactive hydrocodone 5 mg-acetaminophen 325 mg tablet RxNorm: 708417 1 Tablet(s) PO TID as needed for pain No Start Date 10/13/2017 Inactive Eliquis 5 mg tablet RxNorm: 3331037 1 Tablet(s) PO BID No Start Date 09/01/2018 Inactive cyclobenzaprine 5 mg tablet RxNorm: 669574 1 Tablet(s) PO TID as needed muscle spasms No Start Date 03/17/2018 Inactive Epclusa 400 mg-100 mg tablet RxNorm: 0617496 1 Tablet(s) PO daily No Start Date 07/11/2018 Inactive carvedilol 6.25 mg tablet RxNorm: 274213 1 Tablet(s) PO BID No Start Date 09/01/2018 Inactive pantoprazole 40 mg tablet,delayed release RxNorm: 878148 1 Tablet(s) PO daily No Start Date 12/26/2017 Inactive alprazolam 1 mg tablet RxNorm: 150566 1 Tablet(s) PO TID as needed anxiety No Start Date 2017 Inactive flecainide 100 mg tablet RxNorm: 099847 1 Tablet(s) PO BID No Start Date 06/08/2018 Inactive metoprolol succinate ER 50 mg tablet,extended release 24 hr RxNorm: 346064 1/2 Tablet(s) PO daily managed by Dr Wilder No Start Date 06/08/2018 Inactive duloxetine 60 mg capsule,delayed release RxNorm: 494435 2 Capsule(s) PO daily No Start Date 11/30/2017 Inactive Medication Administered Medication Codes Instructions Start Date Status Kenalog 40 mg/mL suspension for injection RxNorm: 2050876 Milliliter 06/27/2018 No longer Active Immunizations Vaccine Codes Date Status Influenza CVX: 141 06/20/2018 completed Assessments Condition Codes Effective Dates Chronic pain syndrome ICD-10: G89.4 ICD-9: 338.4 10/25/2018 Paroxysmal atrial fibrillation ICD-10: I48.0 ICD-9: 427.31 10/25/2018 Essential (primary) hypertension ICD-10: I10 ICD-9: 401.1 10/25/2018 Supraventricular tachycardia ICD-10: I47.1 ICD-9: 427.89 08/26/2018 Other specified hypothyroidism ICD-10: E03.8 ICD-9: 244.8 08/26/2018 Diverticulitis of large intestine without perforation or abscess without bleeding ICD-10: K57.32 ICD-9: 562.11 08/26/2018 Generalized anxiety disorder ICD-10: F41.1 ICD-9: 300.00 08/19/2018 Dysphagia, oropharyngeal phase ICD-10: R13.12 ICD-9: 787.22 08/19/2018 Major depressive disorder, single episode, moderate ICD-10: F32.1 ICD-9: 296.22 08/19/2018 Acute bronchitis due to other specified organisms ICD-10: J20.8 ICD-9: 466.0 06/27/2018 Encounter for immunization ICD-10: Z23 ICD-9: V03.82 06/20/2018 Other hydrocele ICD-10: N43.2 ICD-9: 603.8 05/09/2018 Low back pain ICD-10: M54.5 ICD-9: 724.2 01/18/2018 Left lower quadrant pain ICD-10: R10.32 ICD-9: 789.09 01/18/2018 Gastro-esophageal reflux disease without esophagitis ICD-10 : K21.9 ICD-9: 530.81 09/30/2017 Headache ICD-10: R51 ICD-9: 784.0 09/30/2017 Reason For Visit Reason For Visit Effective Dates Notes Hospital Follow Up 10/25/2018 Hospital Follow Up 10/20/2018 abdominal pain 08/26/2018 Hospital Follow Up 08/19/2018 low back pain 07/21/2018 cough 06/27/2018 Hospital Follow Up 06/20/2018 low back pain 05/09/2018 headache 03/11/2018 headache 01/18/2018 headache 12/10/2017 headache 11/09/2017 low back pain 10/19/2017 headache 09/30/2017 Results No Results data Review of Systems System Result Effective Dates Constitutional No recent illness 2018 Constitutional No chills 10/25/2018 Constitutional No diaphoresis 10/25/2018 Constitutional No fever 10/25/2018 Eyes No eye erythema 10/25/2018 Ears/Nose/Throat/Neck No nasal allergies 10/25/2018 Ears/Nose/Throat/Neck No nasal discharge 10/25/2018 Cardiovascular No chest pain/pressure 01/2019 Cardiovascular No dyspnea 10/25/2018 Cardiovascular No palpitations 2018 Respiratory No chest congestion 2018 Respiratory No cough 10/25/2018 Gastrointestinal No abdominal pain 2018 Musculoskeletal back pain 10/25/2018 Dermatologic No rash 10/25/2018 Neurologic No alteration of consciousness 10/25/2018 Neurologic headache 10/25/2018 Psychiatric anxiety 10/25/2018 Psychiatric depression 10/25/2018 Psychiatric No suicidality 10/25/2018 Constitutional No recent illness 2018 Constitutional No chills 10/20/2018 Constitutional No diaphoresis 10/20/2018 Constitutional No fever 10/20/2018 Eyes No eye erythema 10/20/2018 Ears/Nose/Throat/Neck No nasal allergies 10/20/2018 Ears/Nose/Throat/Neck No nasal discharge 10/20/2018 Cardiovascular No chest pain/pressure Cardiovascular No dyspnea 10/20/2018 Cardiovascular No palpitations 2018 Respiratory No chest congestion 2018 Respiratory No cough 10/20/2018 Gastrointestinal No abdominal pain 2018 Musculoskeletal back pain 10/20/2018 Dermatologic No rash 10/20/2018 Neurologic No alteration of consciousness 10/20/2018 Neurologic headache 10/20/2018 Psychiatric anxiety 10/20/2018 Psychiatric depression 10/20/2018 Psychiatric No suicidality 10/20/2018 Constitutional recent illness 08/26/2018 Constitutional No chills 08/26/2018 Constitutional No diaphoresis 08/26/2018 Constitutional No fever 08/26/2018 Eyes No eye erythema 08/26/2018 Ears/Nose/Throat/Neck No nasal discharge 08/26/2018 Ears/Nose/Throat/Neck No nasal allergies 08/26/2018 Cardiovascular No chest pain/pressure 03/2018 Cardiovascular No dyspnea 08/26/2018 Cardiovascular palpitations 08/26/2018 Respiratory No cough 08/26/2018 Gastrointestinal abdominal pain 2017 Gastrointestinal No constipation 2017 Gastrointestinal diarrhea 08/26/2018 Gastrointestinal No vomiting 08/26/2018 Gastrointestinal nausea 08/26/2018 Gastrointestinal No melena 08/26/2018 Gastrointestinal No hematochezia 2017 Neurologic No alteration of consciousness 08/26/2018 Neurologic No mental status change 2017 Constitutional No recent illness 2017 Constitutional No chills 08/19/2018 Constitutional No diaphoresis 08/19/2018 Constitutional fatigue 08/19/2018 Constitutional No fever 08/19/2018 Eyes No eye erythema 08/19/2018 Ears/Nose/Throat/Neck No nasal allergies 08/19/2018 Ears/Nose/Throat/Neck No nasal discharge 08/19/2018 Cardiovascular No chest pain/pressure Cardiovascular No dyspnea 08/19/2018 Cardiovascular No palpitations 2017 Respiratory No chest congestion 2017 Respiratory No cough 08/19/2018 Gastrointestinal No abdominal pain 2017 Musculoskeletal back pain 08/19/2018 Dermatologic No rash 08/19/2018 Neurologic No alteration of consciousness 08/19/2018 Neurologic headache 08/19/2018 Psychiatric anxiety 08/19/2018 Psychiatric depression 08/19/2018 Psychiatric No suicidality 08/19/2018 Constitutional No recent illness 2017 Constitutional No chills 07/21/2018 Constitutional No diaphoresis 07/21/2018 Constitutional fatigue 07/21/2018 Constitutional No fever 07/21/2018 Eyes No eye erythema 07/21/2018 Ears/Nose/Throat/Neck No nasal allergies 07/21/2018 Ears/Nose/Throat/Neck No nasal discharge 07/21/2018 Cardiovascular No chest pain/pressure 09/2017 Cardiovascular No dyspnea 07/21/2018 Cardiovascular No palpitations 2017 Respiratory No chest congestion 2017 Respiratory No cough 07/21/2018 Gastrointestinal No abdominal pain 2017 Musculoskeletal back pain 07/21/2018 Dermatologic No rash 07/21/2018 Neurologic No alteration of consciousness 07/21/2018 Neurologic headache 07/21/2018 Psychiatric anxiety 07/21/2018 Psychiatric depression 07/21/2018 Constitutional recent illness 06/27/2018 Constitutional chills 06/27/2018 Constitutional No fever 06/27/2018 Eyes No eye erythema 06/27/2018 Ears/Nose/Throat/Neck nasal allergies 04/2018 Ears/Nose/Throat/Neck nasal discharge 04/2018 Ears/Nose/Throat/Neck postnasal drip 04/2018 Ears/Nose/Throat/Neck sinus congestion Cardiovascular No chest pain/pressure 04/2018 Respiratory productive sputum 06/27/2018 Respiratory cough 06/27/2018 Respiratory wheezing 06/27/2018 Gastrointestinal No abdominal pain 2017 Musculoskeletal No joint complaint 2017 Dermatologic No rash 06/27/2018 Neurologic No alteration of consciousness 06/27/2018 Neurologic No mental status change 2017 Constitutional malaise 06/27/2018 Respiratory No dyspnea 06/27/2018 Constitutional No recent illness 2017 Constitutional No chills 06/20/2018 Constitutional No diaphoresis 06/20/2018 Constitutional No fever 06/20/2018 Eyes No eye erythema 06/20/2018 Ears/Nose/Throat/Neck No nasal allergies 06/20/2018 Ears/Nose/Throat/Neck No nasal discharge 06/20/2018 Cardiovascular No chest pain/pressure 09/2017 Cardiovascular No dyspnea 06/20/2018 Cardiovascular No palpitations 2017 Respiratory No chest congestion 2017 Respiratory No cough 06/20/2018 Gastrointestinal No abdominal pain 2017 Musculoskeletal back pain 06/20/2018 Dermatologic No rash 06/20/2018 Neurologic No alteration of consciousness 06/20/2018 Neurologic headache 06/20/2018 Psychiatric anxiety 06/20/2018 Psychiatric depression 06/20/2018 Psychiatric No suicidality 06/20/2018 Constitutional No recent illness 2017 Constitutional No chills 05/09/2018 Constitutional No diaphoresis 05/09/2018 Constitutional fatigue 05/09/2018 Constitutional No fever 05/09/2018 Eyes No eye erythema 05/09/2018 Ears/Nose/Throat/Neck No nasal allergies 05/09/2018 Ears/Nose/Throat/Neck No nasal discharge 05/09/2018 Cardiovascular No chest pain/pressure Cardiovascular No dyspnea 05/09/2018 Cardiovascular No palpitations 2017 Respiratory No chest congestion 2017 Respiratory No cough 05/09/2018 Gastrointestinal No abdominal pain 2017 Musculoskeletal back pain 05/09/2018 Dermatologic No rash 05/09/2018 Neurologic No alteration of consciousness 05/09/2018 Neurologic headache 05/09/2018 Psychiatric anxiety 05/09/2018 Psychiatric depression 05/09/2018 Psychiatric No suicidality 05/09/2018 Constitutional No recent illness 2017 Constitutional No chills 03/11/2018 Constitutional No diaphoresis 03/11/2018 Constitutional fatigue 03/11/2018 Constitutional No fever 03/11/2018 Eyes No eye erythema 03/11/2018 Ears/Nose/Throat/Neck No nasal allergies 03/11/2018 Ears/Nose/Throat/Neck No nasal discharge 03/11/2018 Cardiovascular No chest pain/pressure Cardiovascular No dyspnea 03/11/2018 Cardiovascular No palpitations 2017 Respiratory No chest congestion 2017 Respiratory No cough 03/11/2018 Gastrointestinal No abdominal pain 2017 Musculoskeletal back pain 03/11/2018 Dermatologic No rash 03/11/2018 Neurologic No alteration of consciousness 03/11/2018 Neurologic headache 03/11/2018 Psychiatric anxiety 03/11/2018 Psychiatric depression 03/11/2018 Psychiatric No suicidality 03/11/2018 Constitutional No recent illness 2017 Constitutional No chills 01/18/2018 Constitutional No diaphoresis 01/18/2018 Constitutional fatigue 01/18/2018 Constitutional No fever 01/18/2018 Eyes No eye erythema 01/18/2018 Ears/Nose/Throat/Neck No nasal allergies 01/18/2018 Ears/Nose/Throat/Neck No nasal discharge 01/18/2018 Cardiovascular No chest pain/pressure 09/2017 Cardiovascular No dyspnea 01/18/2018 Cardiovascular No palpitations 2017 Respiratory No chest congestion 2017 Respiratory No cough 01/18/2018 Gastrointestinal No abdominal pain 2017 Musculoskeletal back pain 01/18/2018 Dermatologic No rash 01/18/2018 Neurologic No alteration of consciousness 01/18/2018 Neurologic headache 01/18/2018 Psychiatric anxiety 01/18/2018 Psychiatric depression 01/18/2018 Psychiatric No suicidality 01/18/2018 Constitutional No recent illness 2017 Constitutional No chills 12/10/2017 Constitutional No diaphoresis 12/10/2017 Constitutional fatigue 12/10/2017 Constitutional No fever 12/10/2017 Eyes No eye erythema 12/10/2017 Ears/Nose/Throat/Neck No nasal allergies 12/10/2017 Ears/Nose/Throat/Neck No nasal discharge 12/10/2017 Cardiovascular No chest pain/pressure Cardiovascular No dyspnea 12/10/2017 Respiratory No chest congestion 2017 Respiratory No cough 12/10/2017 Gastrointestinal No abdominal pain 2017 Musculoskeletal back pain 12/10/2017 Dermatologic No rash 12/10/2017 Neurologic No alteration of consciousness 12/10/2017 Neurologic headache 12/10/2017 Psychiatric anxiety 12/10/2017 Psychiatric depression 12/10/2017 Cardiovascular No palpitations 2017 Constitutional No recent illness 2017 Constitutional No chills 11/09/2017 Constitutional No diaphoresis 11/09/2017 Constitutional fatigue 11/09/2017 Constitutional No fever 11/09/2017 Eyes No eye erythema 11/09/2017 Ears/Nose/Throat/Neck No nasal allergies 11/09/2017 Ears/Nose/Throat/Neck No nasal discharge 11/09/2017 Cardiovascular No chest pain/pressure Cardiovascular No dyspnea 11/09/2017 Cardiovascular No near-syncope/dizziness 11/09/2017 Cardiovascular No palpitations 2017 Cardiovascular No syncope 11/09/2017 Respiratory No chest congestion 2017 Respiratory No cough 11/09/2017 Gastrointestinal No abdominal pain 2017 Musculoskeletal back pain 11/09/2017 Dermatologic No rash 11/09/2017 Neurologic No alteration of consciousness 11/09/2017 Neurologic headache 11/09/2017 Psychiatric anxiety 11/09/2017 Psychiatric depression 11/09/2017 Constitutional No recent illness 2017 Constitutional No chills 10/19/2017 Constitutional No diaphoresis 10/19/2017 Constitutional fatigue 10/19/2017 Constitutional No fever 10/19/2017 Eyes No eye erythema 10/19/2017 Ears/Nose/Throat/Neck No nasal allergies 10/19/2017 Ears/Nose/Throat/Neck No nasal discharge 10/19/2017 Cardiovascular No chest pain/pressure Cardiovascular No dyspnea 10/19/2017 Cardiovascular No near-syncope/dizziness 10/19/2017 Cardiovascular No palpitations 2017 Cardiovascular No syncope 10/19/2017 Respiratory No chest congestion 2017 Respiratory No cough 10/19/2017 Gastrointestinal No abdominal pain 2017 Musculoskeletal back pain 10/19/2017 Dermatologic No rash 10/19/2017 Neurologic No alteration of consciousness 10/19/2017 Psychiatric anxiety 10/19/2017 Psychiatric depression 10/19/2017 Constitutional recent illness 09/30/2017 Constitutional No chills 09/30/2017 Constitutional No diaphoresis 09/30/2017 Constitutional No fever 09/30/2017 Constitutional fatigue 09/30/2017 Eyes No eye erythema 09/30/2017 Ears/Nose/Throat/Neck No nasal discharge 09/30/2017 Ears/Nose/Throat/Neck No nasal allergies 09/30/2017 Cardiovascular No chest pain/pressure 07/2018 Cardiovascular No dyspnea 09/30/2017 Cardiovascular No near-syncope/dizziness 09/30/2017 Cardiovascular No palpitations 2017 Cardiovascular No syncope 09/30/2017 Respiratory No cough 09/30/2017 Respiratory No chest congestion 2017 Gastrointestinal No abdominal pain 2017 Musculoskeletal back pain 09/30/2017 Dermatologic No rash 09/30/2017 Neurologic No alteration of consciousness 09/30/2017 Neurologic headache 09/30/2017 Psychiatric anxiety 09/30/2017 Psychiatric depression 09/30/2017 Physical Exam Exam Name System Name Item Name Status Result Effective Dates Notes Full Exam - General 1995 Constitutional general appearance Overall: well developed 10/25/2018 None Full Exam - General 1994 Constitutional general appearance Overall: in no acute distress 10/25/2018 None Full Exam - General 1994 Constitutional general appearance Overall: well nourished 10/25/2018 None Full Exam - General 1994 Eyes conjunctiva /eyelids Overall: conjunctiva clear 10/25/2018 None Full Exam - General 1994 Eyes conjunctiva /eyelids Overall: cornea clear 10/25/2018 None Full Exam - General 1994 Eyes conjunctiva /eyelids Overall: eyelids normal 10/25/2018 None Full Exam - General 1994 Ears/Nose/Throat lips/teeth/gingiva Overall: benign lips 10/25/2018 None Full Exam - General 1994 Ears/Nose/Throat oral cavity/pharynx/larynx Overall: oral mucosa clear 10/25/2018 None Full Exam - General 1994 Respiratory auscultation Diffuse: diminished 10/25/2018 None Full Exam - General 1994 Respiratory respiratory effort/rhythm Overall: no retractions 10/25/2018 None Full Exam - General 1994 Respiratory respiratory effort/rhythm Overall: normal rate 10/25/2018 None Full Exam - General 1994 Cardiovascular auscultation of heart Rate: regular rate 10/25/2018 None Full Exam - General 1994 Cardiovascular auscultation of heart Rhythm: irregularly irregular rhythm 10/25/2018 None Full Exam - General 1994 Musculoskeletal spine, ribs and pelvis Spine: tender @ lumbar spine 10/25/2018 None Full Exam - General 1994 Musculoskeletal gait and station Overall: normal gait 10/25/2018 None Full Exam - General 1994 Musculoskeletal gait and station Overall: normal station 10/25/2018 None Full Exam - General 1994 Musculoskeletal head and neck Overall: head atraumatic 10/25/2018 None Full Exam - General 1994 Neurologic cranial nerves Overall: crainial nerves 2 - 12 grossly intact 10/25/2018 None Full Exam - General 1994 Psychiatric orientation/consciousness Overall: oriented to person, place and time 10/25/2018 None Full Exam - General 1994 Psychiatric mood and affect Mood: flat 10/25/2018 None Full Exam - General 1994 Psychiatric mood and affect Mood: irritable 10/25/2018 None Full Exam - General 1994 Psychiatric mood and affect Mood: labile mood 10/25/2018 None Full Exam - General 1994 Psychiatric mood and affect Affect: flat 10/25/2018 None Full Exam - General 1995 Constitutional general appearance Overall: well developed 10/20/2018 None Full Exam - General 1995 Constitutional general appearance Overall: in no acute distress 10/20/2018 None Full Exam - General 1995 Constitutional general appearance Overall: well nourished 10/20/2018 None Full Exam - General 1995 Eyes conjunctiva /eyelids Overall: conjunctiva clear 10/20/2018 None Full Exam - General 1995 Eyes conjunctiva /eyelids Overall: cornea clear 10/20/2018 None Full Exam - General 1994 Eyes conjunctiva /eyelids Overall: eyelids normal 10/20/2018 None Full Exam - General 1995 Ears/Nose/Throat lips/teeth/gingiva Overall: benign lips 10/20/2018 None Full Exam - General 1995 Ears/Nose/Throat oral cavity/pharynx/larynx Overall: oral mucosa clear 10/20/2018 None Full Exam - General 1994 Respiratory auscultation Diffuse: diminished 10/20/2018 None Full Exam - General 1994 Respiratory respiratory effort/rhythm Overall: no retractions 10/20/2018 None Full Exam - General 1994 Respiratory respiratory effort/rhythm Overall: normal rate 10/20/2018 None Full Exam - General 1994 Cardiovascular auscultation of heart Rate: regular rate 10/20/2018 None Full Exam - General 1994 Cardiovascular auscultation of heart Rhythm: irregularly irregular rhythm 10/20/2018 None Full Exam - General 1994 Musculoskeletal spine, ribs and pelvis Spine: tender @ lumbar spine 10/20/2018 None Full Exam - General 1994 Musculoskeletal gait and station Overall: normal gait 10/20/2018 None Full Exam - General 1994 Musculoskeletal gait and station Overall: normal station 10/20/2018 None Full Exam - General 1994 Musculoskeletal head and neck Overall: head atraumatic 10/20/2018 None Full Exam - General 1994 Neurologic cranial nerves Overall: crainial nerves 2 - 12 grossly intact 10/20/2018 None Full Exam - General 1994 Psychiatric orientation/consciousness Overall: oriented to person, place and time 10/20/2018 None Full Exam - General 1994 Psychiatric mood and affect Mood: flat 10/20/2018 None Full Exam - General 1994 Psychiatric mood and affect Mood: irritable 10/20/2018 None Full Exam - General 1994 Psychiatric mood and affect Mood: labile mood 10/20/2018 None Full Exam - General 1994 Psychiatric mood and affect Affect: flat 10/20/2018 None Full Exam - General 1994 Constitutional general appearance Overall: well developed 08/26/2018 None Full Exam - General 1994 Constitutional general appearance Overall: in no acute distress 08/26/2018 None Full Exam - General 1994 Constitutional general appearance Overall: well nourished 08/26/2018 None Full Exam - General 1994 Eyes conjunctiva /eyelids Overall: eyelids normal 08/26/2018 None Full Exam - General 1994 Eyes conjunctiva /eyelids Overall: cornea clear 08/26/2018 None Full Exam - General 1994 Eyes conjunctiva /eyelids Overall: conjunctiva clear 08/26/2018 None Full Exam - General 1994 Ears/Nose/Throat lips/teeth/gingiva Overall: benign lips 08/26/2018 None Full Exam - General 1994 Ears/Nose/Throat oral cavity/pharynx/larynx Overall: oral mucosa clear 08/26/2018 None Full Exam - General 1994 Respiratory respiratory effort/rhythm Overall: normal rate 08/26/2018 None Full Exam - General 1994 Respiratory respiratory effort/rhythm Overall: no retractions 08/26/2018 None Full Exam - General 1994 Respiratory auscultation Overall: breath sounds clear bilaterally 08/26/2018 None Full Exam - General 1994 Cardiovascular auscultation of heart Rate: tachycardia 08/26/2018 None Full Exam - General 1994 Abdomen abdominal exam Overall: normal bowel sounds 08/26/2018 None Full Exam - General 1994 Abdomen abdominal exam Lower quadrant: tender to palpation 08/26/2018 None Full Exam - General 1994 Abdomen abdominal exam Lower quadrant: dull pain 08/26/2018 None Full Exam - General 1994 Abdomen abdominal exam Lower quadrant: no guarding 08/26/2018 None Full Exam - General 1994 Abdomen abdominal exam Lower quadrant: no rebound tenderness 08/26/2018 None Full Exam - General 1994 Abdomen abdominal exam Lower quadrant: soft 08/26/2018 None Full Exam - General 1994 Musculoskeletal head and neck Overall: head atraumatic 08/26/2018 None Full Exam - General 1994 Musculoskeletal gait and station Overall: normal station 08/26/2018 None Full Exam - General 1994 Musculoskeletal gait and station Overall: normal gait 08/26/2018 None Full Exam - General 1994 Neurologic cranial nerves Overall: crainial nerves 2 - 12 grossly intact 08/26/2018 None Full Exam - General 1994 Psychiatric orientation/consciousness Overall: oriented to person, place and time 08/26/2018 None Full Exam - General 1994 Psychiatric mood and affect Mood: labile mood 08/26/2018 None Full Exam - General 1994 Constitutional general appearance Overall: well developed 08/19/2018 None Full Exam - General 1994 Constitutional general appearance Overall: in no acute distress 08/19/2018 None Full Exam - General 1994 Constitutional general appearance Overall: well nourished 08/19/2018 None Full Exam - General 1994 Eyes conjunctiva /eyelids Overall: conjunctiva clear 08/19/2018 None Full Exam - General 1994 Eyes conjunctiva /eyelids Overall: cornea clear 08/19/2018 None Full Exam - General 1994 Eyes conjunctiva /eyelids Overall: eyelids normal 08/19/2018 None Full Exam - General 1994 Ears/Nose/Throat lips/teeth/gingiva Overall: benign lips 08/19/2018 None Full Exam - General 1994 Ears/Nose/Throat oral cavity/pharynx/larynx Overall: oral mucosa clear 08/19/2018 None Full Exam - General 1994 Respiratory auscultation Diffuse: diminished 08/19/2018 None Full Exam - General 1994 Respiratory respiratory effort/rhythm Overall: no retractions 08/19/2018 None Full Exam - General 1994 Respiratory respiratory effort/rhythm Overall: normal rate 08/19/2018 None Full Exam - General 1994 Cardiovascular auscultation of heart Rate: regular rate 08/19/2018 None Full Exam - General 1994 Cardiovascular auscultation of heart Rhythm: irregularly irregular rhythm 08/19/2018 None Full Exam - General 1994 Musculoskeletal spine, ribs and pelvis Spine: tender @ lumbar spine 08/19/2018 None Full Exam - General 1994 Musculoskeletal gait and station Overall: normal gait 08/19/2018 None Full Exam - General 1994 Musculoskeletal gait and station Overall: normal station 08/19/2018 None Full Exam - General 1994 Musculoskeletal head and neck Overall: head atraumatic 08/19/2018 None Full Exam - General 1994 Neurologic cranial nerves Overall: crainial nerves 2 - 12 grossly intact 08/19/2018 None Full Exam - General 1994 Psychiatric orientation/consciousness Overall: oriented to person, place and time 08/19/2018 None Full Exam - General 1994 Psychiatric mood and affect Mood: flat 08/19/2018 None Full Exam - General 1994 Psychiatric mood and affect Mood: irritable 08/19/2018 None Full Exam - General 1994 Psychiatric mood and affect Mood: labile mood 08/19/2018 None Full Exam - General 1994 Psychiatric mood and affect Affect: flat 08/19/2018 None Full Exam - General 1994 Neck thyroid Palpation: tender 2017 None Full Exam - General 1994 Constitutional general appearance Overall: well developed 07/21/2018 None Full Exam - General 1994 Constitutional general appearance Overall: in no acute distress 07/21/2018 None Full Exam - General 1994 Constitutional general appearance Overall: well nourished 07/21/2018 None Full Exam - General 1994 Eyes conjunctiva /eyelids Overall: conjunctiva clear 07/21/2018 None Full Exam - General 1994 Eyes conjunctiva /eyelids Overall: cornea clear 07/21/2018 None Full Exam - General 1994 Eyes conjunctiva /eyelids Overall: eyelids normal 07/21/2018 None Full Exam - General 1994 Ears/Nose/Throat lips/teeth/gingiva Overall: benign lips 07/21/2018 None Full Exam - General 1994 Ears/Nose/Throat oral cavity/pharynx/larynx Overall: oral mucosa clear 07/21/2018 None Full Exam - General 1994 Respiratory auscultation Diffuse: diminished 07/21/2018 None Full Exam - General 1994 Respiratory respiratory effort/rhythm Overall: no retractions 07/21/2018 None Full Exam - General 1994 Respiratory respiratory effort/rhythm Overall: normal rate 07/21/2018 None Full Exam - General 1994 Cardiovascular auscultation of heart Rate: regular rate 07/21/2018 None Full Exam - General 1994 Cardiovascular auscultation of heart Rhythm: irregularly irregular rhythm 07/21/2018 None Full Exam - General 1994 Musculoskeletal spine, ribs and pelvis Spine: tender @ lumbar spine 07/21/2018 None Full Exam - General 1994 Musculoskeletal gait and station Overall: normal gait 07/21/2018 None Full Exam - General 1994 Musculoskeletal gait and station Overall: normal station 07/21/2018 None Full Exam - General 1994 Musculoskeletal head and neck Overall: head atraumatic 07/21/2018 None Full Exam - General 1994 Neurologic cranial nerves Overall: crainial nerves 2 - 12 grossly intact 07/21/2018 None Full Exam - General 1994 Psychiatric orientation/consciousness Overall: oriented to person, place and time 07/21/2018 None Full Exam - General 1994 Psychiatric mood and affect Mood: flat 07/21/2018 None Full Exam - General 1994 Psychiatric mood and affect Mood: irritable 07/21/2018 None Full Exam - General 1994 Psychiatric mood and affect Mood: labile mood 07/21/2018 None Full Exam - General 1994 Psychiatric mood and affect Affect: flat 07/21/2018 None Full Exam - General 1994 Constitutional general appearance Overall: well developed 06/27/2018 None Full Exam - General 1994 Constitutional general appearance Overall: in no acute distress 06/27/2018 None Full Exam - General 1994 Constitutional general appearance Overall: well nourished 06/27/2018 None Full Exam - General 1994 Eyes conjunctiva /eyelids Overall: conjunctiva clear 06/27/2018 None Full Exam - General 1994 Eyes conjunctiva /eyelids Overall: eyelids normal 06/27/2018 None Full Exam - General 1994 Ears/Nose/Throat otoscopic exam Overall: external auditory canals clear 06/27/2018 None Full Exam - General 1994 Ears/Nose/Throat otoscopic exam Tympanic membrane: air- fluid level 06/27/2018 None Full Exam - General 1994 Ears/Nose/Throat lips/teeth/gingiva Overall: benign lips 06/27/2018 None Full Exam - General 1994 Ears/Nose/Throat oral cavity/pharynx/larynx Overall: oral mucosa clear 06/27/2018 None Full Exam - General 1994 Ears/Nose/Throat oral cavity/pharynx/larynx Posterior Pharynx: clear post nasal drainage 06/27/2018 None Full Exam - General 1994 Respiratory auscultation Diffuse: diminished 06/27/2018 None Full Exam - General 1994 Respiratory auscultation Lower lung field: expiratory wheezes 06/27/2018 None Full Exam - General 1994 Respiratory respiratory effort/rhythm Overall: no retractions 06/27/2018 None Full Exam - General 1994 Respiratory respiratory effort/rhythm Overall: normal rate 06/27/2018 None Full Exam - General 1994 Lymphatic neck nodes Overall: anterior cervical chain benign 06/27/2018 None Full Exam - General 1994 Lymphatic neck nodes Overall: posterior cervical chain benign 06/27/2018 None Full Exam - General 1994 Neurologic cranial nerves Overall: crainial nerves 2 - 12 grossly intact 06/27/2018 None Full Exam - General 1994 Psychiatric orientation/consciousness Overall: oriented to person, place and time 06/27/2018 None Full Exam - General 1994 Psychiatric mood and affect Overall: normal mood and affect 06/27/2018 None Full Exam - General 1994 Cardiovascular auscultation of heart Rate: regular rate 06/27/2018 None Full Exam - General 1994 Constitutional general appearance Overall: well developed 06/20/2018 None Full Exam - General 1994 Constitutional general appearance Overall: in no acute distress 06/20/2018 None Full Exam - General 1995 Constitutional general appearance Overall: well nourished 06/20/2018 None Full Exam - General 1995 Eyes conjunctiva /eyelids Overall: conjunctiva clear 06/20/2018 None Full Exam - General 1995 Eyes conjunctiva /eyelids Overall: cornea clear 06/20/2018 None Full Exam - General 1994 Eyes conjunctiva /eyelids Overall: eyelids normal 06/20/2018 None Full Exam - General 1994 Ears/Nose/Throat lips/teeth/gingiva Overall: benign lips 06/20/2018 None Full Exam - General 1995 Ears/Nose/Throat oral cavity/pharynx/larynx Overall: oral mucosa clear 06/20/2018 None Full Exam - General 1994 Respiratory auscultation Diffuse: diminished 06/20/2018 None Full Exam - General 1994 Respiratory respiratory effort/rhythm Overall: no retractions 06/20/2018 None Full Exam - General 1994 Respiratory respiratory effort/rhythm Overall: normal rate 06/20/2018 None Full Exam - General 1994 Cardiovascular auscultation of heart Rate: regular rate 06/20/2018 None Full Exam - General 1994 Cardiovascular auscultation of heart Rhythm: irregularly irregular rhythm 06/20/2018 None Full Exam - General 1994 Musculoskeletal spine, ribs and pelvis Spine: tender @ lumbar spine 06/20/2018 None Full Exam - General 1994 Musculoskeletal gait and station Overall: normal gait 06/20/2018 None Full Exam - General 1994 Musculoskeletal gait and station Overall: normal station 06/20/2018 None Full Exam - General 1994 Musculoskeletal head and neck Overall: head atraumatic 06/20/2018 None Full Exam - General 1994 Neurologic cranial nerves Overall: crainial nerves 2 - 12 grossly intact 06/20/2018 None Full Exam - General 1994 Psychiatric orientation/consciousness Overall: oriented to person, place and time 06/20/2018 None Full Exam - General 1994 Psychiatric mood and affect Mood: flat 06/20/2018 None Full Exam - General 1994 Psychiatric mood and affect Mood: irritable 06/20/2018 None Full Exam - General 1994 Psychiatric mood and affect Mood: labile mood 06/20/2018 None Full Exam - General 1994 Psychiatric mood and affect Affect: flat 06/20/2018 None Full Exam - General 1994 Constitutional general appearance Overall: well developed 05/09/2018 None Full Exam - General 1994 Constitutional general appearance Overall: in no acute distress 05/09/2018 None Full Exam - General 1994 Constitutional general appearance Overall: well nourished 05/09/2018 None Full Exam - General 1994 Eyes conjunctiva /eyelids Overall: conjunctiva clear 05/09/2018 None Full Exam - General 1994 Eyes conjunctiva /eyelids Overall: cornea clear 05/09/2018 None Full Exam - General 1994 Eyes conjunctiva /eyelids Overall: eyelids normal 05/09/2018 None Full Exam - General 1994 Ears/Nose/Throat lips/teeth/gingiva Overall: benign lips 05/09/2018 None Full Exam - General 1994 Ears/Nose/Throat oral cavity/pharynx/larynx Overall: oral mucosa clear 05/09/2018 None Full Exam - General 1994 Respiratory auscultation Diffuse: diminished 05/09/2018 None Full Exam - General 1994 Respiratory respiratory effort/rhythm Overall: no retractions 05/09/2018 None Full Exam - General 1994 Respiratory respiratory effort/rhythm Overall: normal rate 05/09/2018 None Full Exam - General 1994 Cardiovascular auscultation of heart Rate: regular rate 05/09/2018 None Full Exam - General 1994 Cardiovascular auscultation of heart Rhythm: irregularly irregular rhythm 05/09/2018 None Full Exam - General 1994 Musculoskeletal spine, ribs and pelvis Spine: tender @ lumbar spine 05/09/2018 None Full Exam - General 1994 Musculoskeletal gait and station Overall: normal gait 05/09/2018 None Full Exam - General 1994 Musculoskeletal gait and station Overall: normal station 05/09/2018 None Full Exam - General 1994 Musculoskeletal head and neck Overall: head atraumatic 05/09/2018 None Full Exam - General 1994 Neurologic cranial nerves Overall: crainial nerves 2 - 12 grossly intact 05/09/2018 None Full Exam - General 1994 Psychiatric orientation/consciousness Overall: oriented to person, place and time 05/09/2018 None Full Exam - General 1994 Psychiatric mood and affect Mood: flat 05/09/2018 None Full Exam - General 1994 Psychiatric mood and affect Mood: irritable 05/09/2018 None Full Exam - General 1994 Psychiatric mood and affect Mood: labile mood 05/09/2018 None Full Exam - General 1994 Psychiatric mood and affect Affect: flat 05/09/2018 None Full Exam - General 1994 Constitutional general appearance Overall: well developed 03/11/2018 None Full Exam - General 1994 Constitutional general appearance Overall: in no acute distress 03/11/2018 None Full Exam - General 1994 Constitutional general appearance Overall: well nourished 03/11/2018 None Full Exam - General 1994 Eyes conjunctiva /eyelids Overall: conjunctiva clear 03/11/2018 None Full Exam - General 1994 Eyes conjunctiva /eyelids Overall: cornea clear 03/11/2018 None Full Exam - General 1994 Eyes conjunctiva /eyelids Overall: eyelids normal 03/11/2018 None Full Exam - General 1994 Eyes pupils and irises Overall: pupils equal, round, reactive to light and accomodation 03/11/2018 None Full Exam - General 1994 Ears/Nose/Throat lips/teeth/gingiva Overall: benign lips 03/11/2018 None Full Exam - General 1994 Ears/Nose/Throat oral cavity/pharynx/larynx Overall: oral mucosa clear 03/11/2018 None Full Exam - General 1994 Respiratory auscultation Diffuse: diminished 03/11/2018 None Full Exam - General 1994 Respiratory respiratory effort/rhythm Overall: no retractions 03/11/2018 None Full Exam - General 1994 Respiratory respiratory effort/rhythm Overall: normal rate 03/11/2018 None Full Exam - General 1994 Cardiovascular auscultation of heart Rate: regular rate 03/11/2018 None Full Exam - General 1994 Cardiovascular auscultation of heart Rhythm: irregularly irregular rhythm 03/11/2018 None Full Exam - General 1994 Musculoskeletal spine, ribs and pelvis Spine: tender @ lumbar spine 03/11/2018 None Full Exam - General 1994 Musculoskeletal gait and station Overall: normal gait 03/11/2018 None Full Exam - General 1994 Musculoskeletal gait and station Overall: normal station 03/11/2018 None Full Exam - General 1994 Musculoskeletal head and neck Overall: head atraumatic 03/11/2018 None Full Exam - General 1994 Neurologic cranial nerves Overall: crainial nerves 2 - 12 grossly intact 03/11/2018 None Full Exam - General 1994 Psychiatric orientation/consciousness Overall: oriented to person, place and time 03/11/2018 None Full Exam - General 1994 Psychiatric mood and affect Mood: flat 03/11/2018 None Full Exam - General 1994 Psychiatric mood and affect Mood: irritable 03/11/2018 None Full Exam - General 1994 Psychiatric mood and affect Mood: labile mood 03/11/2018 None Full Exam - General 1994 Psychiatric mood and affect Affect: flat 03/11/2018 None Full Exam - General 1994 Constitutional general appearance Overall: well developed 01/18/2018 None Full Exam - General 1994 Constitutional general appearance Overall: in no acute distress 01/18/2018 None Full Exam - General 1994 Constitutional general appearance Overall: well nourished 01/18/2018 None Full Exam - General 1994 Eyes conjunctiva /eyelids Overall: conjunctiva clear 01/18/2018 None Full Exam - General 1994 Eyes conjunctiva /eyelids Overall: cornea clear 01/18/2018 None Full Exam - General 1994 Eyes conjunctiva /eyelids Overall: eyelids normal 01/18/2018 None Full Exam - General 1994 Eyes pupils and irises Overall: pupils equal, round, reactive to light and accomodation 01/18/2018 None Full Exam - General 1994 Ears/Nose/Throat lips/teeth/gingiva Overall: benign lips 01/18/2018 None Full Exam - General 1994 Ears/Nose/Throat oral cavity/pharynx/larynx Overall: oral mucosa clear 01/18/2018 None Full Exam - General 1994 Respiratory auscultation Diffuse: diminished 01/18/2018 None Full Exam - General 1994 Respiratory respiratory effort/rhythm Overall: no retractions 01/18/2018 None Full Exam - General 1994 Respiratory respiratory effort/rhythm Overall: normal rate 01/18/2018 None Full Exam - General 1994 Cardiovascular auscultation of heart Rate: regular rate 01/18/2018 None Full Exam - General 1994 Cardiovascular auscultation of heart Rhythm: irregularly irregular rhythm 01/18/2018 None Full Exam - General 1994 Musculoskeletal spine, ribs and pelvis Spine: tender @ lumbar spine 01/18/2018 None Full Exam - General 1994 Musculoskeletal gait and station Overall: normal gait 01/18/2018 None Full Exam - General 1994 Musculoskeletal gait and station Overall: normal station 01/18/2018 None Full Exam - General 1994 Musculoskeletal head and neck Overall: head atraumatic 01/18/2018 None Full Exam - General 1994 Neurologic cranial nerves Overall: crainial nerves 2 - 12 grossly intact 01/18/2018 None Full Exam - General 1994 Psychiatric orientation/consciousness Overall: oriented to person, place and time 01/18/2018 None Full Exam - General 1994 Psychiatric mood and affect Mood: flat 01/18/2018 None Full Exam - General 1994 Psychiatric mood and affect Mood: irritable 01/18/2018 None Full Exam - General 1994 Psychiatric mood and affect Mood: labile mood 01/18/2018 None Full Exam - General 1994 Psychiatric mood and affect Affect: flat 01/18/2018 None Full Exam - General 1994 Constitutional general appearance Overall: well developed 12/10/2017 None Full Exam - General 1994 Constitutional general appearance Overall: in no acute distress 12/10/2017 None Full Exam - General 1994 Constitutional general appearance Overall: well nourished 12/10/2017 None Full Exam - General 1994 Eyes conjunctiva /eyelids Overall: conjunctiva clear 12/10/2017 None Full Exam - General 1994 Eyes conjunctiva /eyelids Overall: cornea clear 12/10/2017 None Full Exam - General 1994 Eyes conjunctiva /eyelids Overall: eyelids normal 12/10/2017 None Full Exam - General 1994 Eyes pupils and irises Overall: pupils equal, round, reactive to light and accomodation 12/10/2017 None Full Exam - General 1994 Ears/Nose/Throat lips/teeth/gingiva Overall: benign lips 12/10/2017 None Full Exam - General 1994 Ears/Nose/Throat oral cavity/pharynx/larynx Overall: oral mucosa clear 12/10/2017 None Full Exam - General 1994 Respiratory auscultation Diffuse: diminished 12/10/2017 None Full Exam - General 1994 Respiratory respiratory effort/rhythm Overall: no retractions 12/10/2017 None Full Exam - General 1994 Respiratory respiratory effort/rhythm Overall: normal rate 12/10/2017 None Full Exam - General 1994 Cardiovascular auscultation of heart Rate: regular rate 12/10/2017 None Full Exam - General 1994 Cardiovascular auscultation of heart Rhythm: irregularly irregular rhythm 12/10/2017 None Full Exam - General 1994 Musculoskeletal spine, ribs and pelvis Spine: tender @ lumbar spine 12/10/2017 None Full Exam - General 1994 Musculoskeletal gait and station Overall: normal gait 12/10/2017 None Full Exam - General 1994 Musculoskeletal gait and station Overall: normal station 12/10/2017 None Full Exam - General 1994 Musculoskeletal head and neck Overall: head atraumatic 12/10/2017 None Full Exam - General 1994 Neurologic cranial nerves Overall: crainial nerves 2 - 12 grossly intact 12/10/2017 None Full Exam - General 1994 Psychiatric orientation/consciousness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 understands the consequences of over-medication. Hypothyroidism - pt with chronic hypothyroidism, continue with current medication, will monitor pt to signs or symptoms of lack of adequate supplementation. Pt is to continue with current dose of medication unless directed otherwise. Check labs at regular intervals q 3 months or q 6 months based on previous levels of control. 08/26/2018 Appointment: [facility] (15 min) Moderate 08/26/2018 Patient Education: Patient Medication Summary Completed 08/26/2018 Visit Plan: Chronic Depression and anxiety - the pt has symptoms of chronic anxiety and depression that have been fairly well controlled since the last office visit. The pt has expected periods of exacerbation with abatement of the symptoms with change in situational exposure. No change in current medications. Chronic Pain Syndrome - pt has chronic pain - has been maintained on current medications, has not sought out other medications, only uses PRN pain medications as directed, and understands the consequences of over-medication. Hypertension - The patient has been counseled to cut back on salt in diet for a no added salt diet, low fat diet, start an exercise program with low weight bearing exercises and higher aerobic activity for heart health. The patient is to check blood pressure readings as an outpatient and either fax, call, or email the readings to the office next week for practitioner to review. The pt is to call for acute concerns. SVT - will refer for second opinion hypothyroid and dysphagia - will order thyroid US 08/19/2018 Appointment: [facility] (30 min) Complex 08/19/2018 Patient Education: Patient Medication Summary Completed 08/19/2018 Patient Education: Depression Completed 08/19/2018 Visit Plan: Chronic Depression and anxiety - the pt has symptoms of chronic anxiety and depression that have been fairly well controlled since the last office visit. The pt has expected periods of exacerbation with abatement of the symptoms with change in situational exposure. No change in current medications. Hypertension - The patient has been counseled to cut back on salt in diet for a no added salt diet, low fat diet, start an exercise program with low weight bearing exercises and higher aerobic activity for heart health. The patient is to check blood pressure readings as an outpatient and either fax, call, or email the readings to the office next week for practitioner to review. The pt is to call for acute concerns. Chronic Pain Syndrome - pt has chronic pain - has been maintained on current medications , has not sought out other medications, only uses PRN pain medications as directed, and understands the consequences of over-medication. Pain contract updated - see scanned document - discussed with pt the need to taper off pain medication. 07/21/2018 Appointment: Alissa Jimeneztel: [address] [facility] (15 min) Moderate 07/21/2018 Patient Education: Patient Medication Summary Completed 07/21/2018 Patient Education: Depression Completed 07/21/2018 Visit Plan: Bronchitis - acute case of bronchitis identified. Pt has been given antibiotics, steroids as appropriate, and pt has been instructed to call if symptoms are not improved, or if symptoms acutely worsen. 06/27/2018 Appointment: Alissa Jimeneztel: [address] [facility] (15 min) Moderate 06/27/2018 Patient Education: Patient Medication Summary Completed 06/27/2018 Visit Plan: Atrial Fibrillation - pt on chronic anticoagulation and is currently rate controlled. The pt is to have labs done as appropriate to monitor medication levels and is to report if they start to feel as if their heart rate is becoming uncontrolled. Pt is to keep track of his heart rates and blood pressures and follow up in 1 month. Hypertension - well controlled - continue with current medications, continue with no added salt diet. Pt has been encouraged to exercise daily. The pt has been advised to call the office if there are any acute concerns about change in blood pressure readings at home. Chronic Pain Syndrome - pt has chronic pain - has been maintained on current medications, has not sought out other medications, only uses PRN pain medications as directed, and understands the consequences of over- medication. 06/20/2018 Appointment: Alissa Jimenez WPtel: [address] [facility] (15 min) Moderate 06/20/2018 Patient Education: Patient Medication Summary Completed 06/20/2018 Appointment: Nurse Visit 05/20/2018 Patient Education: Patient Medication Summary Completed 05/20/2018 Visit Plan: Anxiety - the patient has uncontrolled anxiety and will benefit from an SSRI on a daily basis to attempt control of the symptoms of anxiety (tachycardia, overwhelming sensations, stress, insomnia, etc ). Pt is aware of the risks and benefits of treatment with the above medications. Depression - uncontrolled - Pt has been counseled about the diagnosis of depression, the potential causes, and risks associated with the diagnosis. The pt denies suicidal ideation, or plans. The patient has been counseled about treatment options, and understands the risks associated with treatment of depression, as well as the risks associated with NOT treating the depression. I believe the pt will benefit from medical intervention and an antidepressant has been appropriately prescribed for this patient. Hypertension - The patient has been counseled to cut back on salt in diet for a no added salt diet, low fat diet, start an exercise program with low weight bearing exercises and higher aerobic activity for heart health. The patient is to check blood pressure readings as an outpatient and either fax, call, or email the readings to the office next week for practitioner to review. The pt is to call for acute concerns. Hydrocele - pt has refused to go back to two different urologist and would like to be referred to a 3rd instead - will refer. Chronic Pain Syndrome - pt has chronic pain - has been maintained on current medications , has not sought out other medications, only uses PRN pain medications as directed, and understands the consequences of over-medication. 05/09/2018 Appointment: [facility] Jimenez [facility]Ptel[facility] [facility] (15 min) Moderate 05/09/2018 Patient Education: Patient Medication Summary Completed 05/09/2018 Appointment: [facility] Jimenez [facility]Ptel: [facility] [facility] (30 min) Complex 03/22/2018 Referral: External, Ordering Provider they will call him for appt Initiated Care Plan: Referral Order SNOMED-CT : [id number] Pending 03/13/2018 Visit Plan: Chronic Pain Syndrome - pt has chronic pain - has been maintained on current medications, has not sought out other medications , only uses PRN pain medications as directed, and understands the consequences of over-medication. Chronic Depression and anxiety - the pt has symptoms of chronic anxiety and depression that have been fairly well controlled since the last office visit. The pt has expected periods of exacerbation with abatement of the symptoms with change in situational exposure. No change in current medications. Hydrocele - will refer to urology 03/11/2018 Appointment: [facility] Jimenez [facility]Ptel: [facility] [facility] [place] (15 min) Moderate 03/11/2018 Patient Education: Patient Medication Summary Completed 03/11/2018 Visit Plan: Chronic Pain Syndrome - pt has chronic pain - has been maintained on current medications, has not sought out other medications , only uses PRN pain medications as directed, and understands the consequences of over-medication. Chronic Depression and anxiety - the pt has symptoms of chronic anxiety and depression that have been fairly well controlled since the last office visit. The pt has expected periods of exacerbation with abatement of the symptoms with change in situational exposure. No change in current medications. Groin pain - pt refuses exam - will order US and refer as indicated. 01/18/2018 Appointment: Alissa Jimenez WPtel: [facility] (15 min) Moderate 01/18/2018 Patient Education: Patient Medication Summary Completed 01/18/2018 Visit Plan: Chronic Pain Syndrome - pt has chronic pain - has been maintained on current medications, has not sought out other medications , only uses PRN pain medications as directed, and understands the consequences of over-medication. Chronic Depression and anxiety - the pt has symptoms of chronic anxiety and depression that have been fairly well controlled since the last office visit. The pt has expected periods of exacerbation with abatement of the symptoms with change in situational exposure. No change in current medications. 12/10/2017 Appointment: Alissa Jimenez WPtel: [facility] [place] (30 min) Complex 12/10/2017 Patient Education: Patient Medication Summary Completed 12/10/2017 Appointment: Alissa Jimenez WPtel: [facility] [place] (30 min) Complex 12/07/2017 Appointment: Alissa Jimenez WPtel: [facility] [place] (15 min) Moderate 11/19/2017 Visit Plan: Chronic Pain Syndrome - pt has chronic pain - has been maintained on current medications, has not sought out other medications , only uses PRN pain medications as directed, and understands the consequences of over-medication. Chronic Depression and anxiety - the pt has symptoms of chronic anxiety and depression that have been fairly well controlled since the last office visit. The pt has expected periods of exacerbation with abatement of the symptoms with change in situational exposure. No change in current medications. 11/09/2017 Patient Education: Patient Medication Summary Completed 11/09/2017 Visit Plan: Chronic Pain Syndrome - pt has chronic pain - has been maintained on current medications, has not sought out other medications , only uses PRN pain medications as directed, and understands the consequences of over-medication. Chronic Depression and anxiety - the pt has symptoms of chronic anxiety and depression that have been fairly well controlled since the last office visit. The pt has expected periods of exacerbation with abatement of the symptoms with change in situational exposure. No change in current medications. 10/19/2017 Appointment: Alissa Jimenez WPtel: [address] [place], [place] [id number] (30 min) [facility] 10/19/2017 Patient Education: Patient Medication Summary Completed 10/19/2017 Visit Plan: Chronic Pain Syndrome - pt has chronic pain - has been maintained on current medications, has not sought out other medications , only uses PRN pain medications as directed, and understands the consequences of over-medication. Chronic Back pain - the patient was counseled to always first attempt to use modalities other than pain medication for alleviation of the muscle spasms and pain. The patient was also encouraged to continue with back exercises as previously directed. Pt is to use pain medication as directed. If pain medications are used inappropriately or early refills are requested, the patient understands that is a breech of trust/contract and could result in the patient's termination from this medical practice. Chronic Depression and anxiety - the pt has symptoms of chronic anxiety and depression that have been fairly well controlled since the last office visit. The pt has expected periods of exacerbation with abatement of the symptoms with change in situational exposure. No change in current medications. Esophageal Reflux - the patient has been counseled against excessive intake of caffeine, spicy foods, peppermint, and cinnamon - all of which can exacerbate esophageal reflux. The patient is to take medications as prescribed and call the office if the symptoms are not improving. Atrial Fibrillation - pt on chronic anticoagulation and is currently rate controlled. The pt is to have labs done as appropriate to monitor medication levels and is to report if they start to feel as if their heart rate is becoming uncontrolled. 09/30/2017 Appointment: Alissa Jimenez WPtel: [facility] [facility] [place] New Patient 09/30/2017 Patient Education: Patient Medication Summary Completed 09/30/2017 Referral: External, Ordering Provider Referral Initiated Instructions Comment . Chronic Pain Syndrome - pt has chronic pain - has been maintained on current medications, has not sought out other medications, only uses PRN pain medications as directed, and understands the consequences of over- medication. Chronic Back pain - the patient was counseled to always first attempt to use modalities other than pain medication for alleviation of the muscle spasms and pain. The patient was also encouraged to continue with back exercises as previously directed. Pt is to use pain medication as directed. If pain medications are used inappropriately or early refills are requested, the patient understands that is a breech of trust/contract and could result in the patient's termination from this medical practice. Chronic Depression and anxiety - the pt has symptoms of chronic anxiety and depression that have been fairly well controlled since the last office visit. The pt has expected periods of exacerbation with abatement of the symptoms with change in situational exposure. No change in current medications. Esophageal Reflux - the patient has been counseled against excessive intake of caffeine, spicy foods, peppermint, and cinnamon - all of which can exacerbate esophageal reflux. The patient is to take medications as prescribed and call the office if the symptoms are not improving. Atrial Fibrillation - pt on chronic anticoagulation and is currently rate controlled. The pt is to have labs done as appropriate to monitor medication levels and is to report if they start to feel as if their heart rate is becoming uncontrolled. . Atrial Fibrillation - pt on chronic anticoagulation and is currently rate controlled. The pt is to have labs done as appropriate to monitor medication levels and is to report if they start to feel as if their heart rate is becoming uncontrolled. Pt is to keep track of his heart rates and blood pressures and follow up in 1 month. Hypertension - well controlled - continue with current medications, continue with no added salt diet. Pt has been encouraged to exercise daily. The pt has been advised to call the office if there are any acute concerns about change in blood pressure readings at home. Chronic Pain Syndrome - pt has chronic pain - has been maintained on current medications, has not sought out other medications, only uses PRN pain medications as directed, and understands the consequences of over-medication. I will fill your muscle relaxer for your neck pain/muscle spasm as needed take you thyroid medication. Take diltiazem 120mg once a day take Multaq 400mg twice a day with meals take protonix 40mg once a day take eliquis 5mg twice a day They are sending you the monitor in the mail you have a follow up appointment with Dr. Anderson's office on 11/03 at 2:30 - call their office with any questions about where your appointment is. . Recurrent A.fib/SVT - discussed with pt's body care manager - verified medications and pt is to have a monitor placed - pt is to notify clinic with any changes in the current treatment plan. will start cymbalta for depression/anxiety stay off the metoprolol check heart rate and blood pressures at home and write them down will give you a low dose bystolic for blood pressure and heart rate - take a 1/ 2 pill daily and let me know if it is causing you to feel bad. Referral to urology - Todd Rodrigez fax [phone] attention caleb FRITZ in [place] . Anxiety - the patient has uncontrolled anxiety and will benefit from an SSRI on a daily basis to attempt control of the symptoms of anxiety (tachycardia, overwhelming sensations, stress, insomnia, etc). Pt is aware of the risks and benefits of treatment with the above medications. Depression - uncontrolled - Pt has been counseled about the diagnosis of depression, the potential causes, and risks associated with the diagnosis. The pt denies suicidal ideation, or plans. The patient has been counseled about treatment options, and understands the risks associated with treatment of depression, as well as the risks associated with NOT treating the depression. I believe the pt will benefit from medical intervention and an antidepressant has been appropriately prescribed for this patient. Hypertension - The patient has been counseled to cut back on salt in diet for a no added salt diet, low fat diet, start an exercise program with low weight bearing exercises and higher aerobic activity for heart health. The patient is to check blood pressure readings as an outpatient and either fax , call, or email the readings to the office next week for practitioner to review. The pt is to call for acute concerns. Hydrocele - pt has refused to go back to two different urologist and would like to be referred to a 3rd instead - will refer. Chronic Pain Syndrome - pt has chronic pain - has been maintained on current medications, has not sought out other medications, only uses PRN pain medications as directed, and understands the consequences of over-medication. . Chronic Pain Syndrome - pt has chronic pain - has been maintained on current medications, has not sought out other medications, only uses PRN pain medications as directed, and understands the consequences of over- medication. Chronic Depression and anxiety - the pt has symptoms of chronic anxiety and depression that have been fairly well controlled since the last office visit. The pt has expected periods of exacerbation with abatement of the symptoms with change in situational exposure. No change in current medications. . Chronic Pain Syndrome - pt has chronic pain - has been maintained on current medications, has not sought out other medications, only uses PRN pain medications as directed, and understands the consequences of over- medication. Hypertension - The patient has been counseled to cut back on salt in diet for a no added salt diet, low fat diet, start an exercise program with low weight bearing exercises and higher aerobic activity for heart health. The patient is to check blood pressure readings as an outpatient and either fax , call, or email the readings to the office next week for practitioner to review. The pt is to call for acute concerns. A. Fib/SVT - defer to cardiology Hospital follow up - This was a follow up appointment from the patient's hospitalization during which time Dr. Cowan formulated the assessment and plan for the follow up on this patient's medical condition. . Chronic Pain Syndrome - pt has chronic pain - has been maintained on current medications, has not sought out other medications, only uses PRN pain medications as directed, and understands the consequences of over- medication. Chronic Depression and anxiety - the pt has symptoms of chronic anxiety and depression that have been fairly well controlled since the last office visit. The pt has expected periods of exacerbation with abatement of the symptoms with change in situational exposure. No change in current medications. . Chronic Pain Syndrome - pt has chronic pain - has been maintained on current medications, has not sought out other medications, only uses PRN pain medications as directed, and understands the consequences of over- medication. Chronic Depression and anxiety - the pt has symptoms of chronic anxiety and depression that have been fairly well controlled since the last office visit. The pt has expected periods of exacerbation with abatement of the symptoms with change in situational exposure. No change in current medications. Groin pain - pt refuses exam - will order US and refer as indicated. continue current medications check thyroid at the beginning of September 20 carvedilol twice a day. Chronic Depression and anxiety - the pt has symptoms of chronic anxiety and depression that have been fairly well controlled since the last office visit. The pt has expected periods of exacerbation with abatement of the symptoms with change in situational exposure. No change in current medications. Hypertension - The patient has been counseled to cut back on salt in diet for a no added salt diet, low fat diet, start an exercise program with low weight bearing exercises and higher aerobic activity for heart health. The patient is to check blood pressure readings as an outpatient and either fax , call, or email the readings to the office next week for practitioner to review. The pt is to call for acute concerns. Chronic Pain Syndrome - pt has chronic pain - has been maintained on current medications, has not sought out other medications, only uses PRN pain medications as directed, and understands the consequences of over-medication. Pain contract updated - see scanned document - discussed with pt the need to taper off pain medication. lets get an ultrasound of your thyroid to see how it is stay on your blood thinner and carvedilol . Chronic Depression and anxiety - the pt has symptoms of chronic anxiety and depression that have been fairly well controlled since the last office visit. The pt has expected periods of exacerbation with abatement of the symptoms with change in situational exposure. No change in current medications. Chronic Pain Syndrome - pt has chronic pain - has been maintained on current medications, has not sought out other medications, only uses PRN pain medications as directed, and understands the consequences of over-medication. Hypertension - The patient has been counseled to cut back on salt in diet for a no added salt diet, low fat diet, start an exercise program with low weight bearing exercises and higher aerobic activity for heart health. The patient is to check blood pressure readings as an outpatient and either fax , call, or email the readings to the office next week for practitioner to review. The pt is to call for acute concerns. SVT - will refer for second opinion hypothyroid and dysphagia - will order thyroid US continue taking your levothyroxine 25mcg daily in the morning an hour before food and other medications (thyroid pill) continue carvedilol 6.25mg twice a day (heart pill) continue eliquis 5mg twice a day (blood thinner) Start metoprolol 25mg - 1/2 pill daily (blood pressure/heart rate pill that will help prevent your episodes of a fast heart rate) Continue Cipro 500mg twice a day (antibiotic for diverticulitis) Start Flagyl 500mg three times a day (antibiotic for diverticulitis) dont take it with alcohol because it will cause vomiting Call [phone] to get your thyroid ultrasound scheduled. . Diverticulitis - rx for antibiotic sent to pt's pharmacy - pt advised to avoid seeds, nuts, popcorn, or any other food which has been proven to upset the pt's stomach. intermittent SVT - defer to cardiology Hypertension - well controlled - continue with current medications, continue with no added salt diet. Pt has been encouraged to exercise daily. The pt has been advised to call the office if there are any acute concerns about change in blood pressure readings at home. Chronic Pain Syndrome - pt has chronic pain - has been maintained on current medications, has not sought out other medications, only uses PRN pain medications as directed, and understands the consequences of over-medication. Hypothyroidism - pt with chronic hypothyroidism, continue with current medication, will monitor pt to signs or symptoms of lack of adequate supplementation. Pt is to continue with current dose of medication unless directed otherwise. Check labs at regular intervals q 3 months or q 6 months based on previous levels of control. . Chronic Pain Syndrome - pt has chronic pain - has been maintained on current medications, has not sought out other medications, only uses PRN pain medications as directed, and understands the consequences of over- medication. Chronic Depression and anxiety - the pt has symptoms of chronic anxiety and depression that have been fairly well controlled since the last office visit. The pt has expected periods of exacerbation with abatement of the symptoms with change in situational exposure. No change in current medications. Hydrocele - will refer to urology . Bronchitis - acute case of bronchitis identified. Pt has been given antibiotics, steroids as appropriate, and pt has been instructed to call if symptoms are not improved, or if symptoms acutely worsen. . Chronic Pain Syndrome - pt has chronic pain - has been maintained on current medications, has not sought out other medications, only uses PRN pain medications as directed, and understands the consequences of over- medication. Chronic Depression and anxiety - the pt has symptoms of chronic anxiety and depression that have been fairly well controlled since the last office visit. The pt has expected periods of exacerbation with abatement of the symptoms with change in situational exposure. No change in current medications.
--- OUTSIDE RECORDS SUMMARY | 2018-11-24 04:51 | XMS REPORT | CCD ---
Author Author Alissa Jimenez Organization [facility] Address [address] [place] [address] Phone Care Team Providers Care Exhaust And Muffler Repairer Name Role Phone PP Unavailable CCM Unavailable Summary Purpose Interface Exchange Insurance Providers Payer name Policy type / Coverage type Covered republican ID Effective Begin Date Effective End Date [employer] - Medicaid [id number] 2017 Unknown Family history Father Diagnosis Age At Onset No Known Diseases N/A Mother Diagnosis Age At Onset No Known Diseases N/A Social History Social History Element Codes Description Effective Dates Marital status Unknown Single 09/30/2017 Employment Unknown Currently unemployed 09/30/[address]: 0472301 Former smoker 09/30/[address]: 993445704 Never drinks alcohol 09/30/2017 On Disability Unknown [...] Fill Instructions oxycodone 5 mg tablet RxNorm: 5387309 1 Tablet(s) PO QID as needed for pain 11/09/2018 12/08/2018 Active Levothroid 25 mcg tablet RxNorm: 194912 1 Tablet(s) PO daily No Stop Date Active alprazolam 1 mg tablet RxNorm: 173059 1 Tablet(s) PO TID as needed anxiety 11/09/2018 12/08/2018 Active Eliquis 5 mg tablet RxNorm: 1565019 1 Tablet(s) PO BID 2018 No Stop Date Active cyclobenzaprine 5 mg tablet RxNorm: 657201 1 Tablet(s) PO TID as needed muscle spasms 10/31/2018 No Stop Date Active cyclobenzaprine 5 mg tablet RxNorm: 584052 1 Tablet(s) PO TID as needed muscle spasms 10/25/2018 10/30/2018 Inactive Eliquis 5 mg tablet RxNorm: 9461897 1 Tablet(s) PO BID 201811/08/2018 Inactive oxycodone 5 mg tablet RxNorm: 1217917 1 Tablet(s) PO QID as needed for pain 10/04/2018 11/02/2018 Inactive oxycodone 5 mg tablet RxNorm: 4208984 1 Tablet(s) PO QID as needed for pain 10/04/2018 10/03/2018 Inactive alprazolam 1 mg tablet RxNorm: 384274 1 Tablet(s) PO TID as needed anxiety 10/04/2018 11/02/2018 Inactive alprazolam 1 mg tablet RxNorm: 036968 1 Tablet(s) PO TID as needed anxiety 09/02/2018 10/01/2018 Inactive Eliquis 5 mg tablet RxNorm: 8219833 1 Tablet(s) PO BID 201710/03/2018 Inactive carvedilol 6.25 mg tablet RxNorm: 126583 1 Tablet(s) PO BID 10/18/2018 Inactive oxycodone 5 mg tablet RxNorm: 1072708 1 Tablet(s) PO QID as needed for pain 09/02/2018 10/01/2018 Inactive Flagyl 500 mg tablet RxNorm: 135740 1 Tablet(s) PO TID 201709/04/2018 Inactive metoprolol succinate ER 25 mg tablet,extended release 24 hr RxNorm: 684557 1/2 Tablet(s) PO daily 08/19/2018 10/19/2018 Inactive oxycodone 5 mg tablet RxNorm: 3437046 1 Tablet(s) PO QID as needed for pain 08/02/2018 08/31/2018 Inactive alprazolam 1 mg tablet RxNorm: 193396 1 Tablet(s) PO TID as needed anxiety 08/02/2018 08/31/2018 Inactive Levothroid 25 mcg tablet RxNorm: 658764 1 Tablet(s) PO daily 2018 Inactive alprazolam 1 mg tablet RxNorm: 545031 1 Tablet(s) PO TID as needed anxiety 07/05/2018 08/01/2018 Inactive oxycodone 5 mg tablet RxNorm: 2305832 1 Tablet(s) PO QID as needed for pain 07/05/2018 08/01/2018 Inactive Levothroid 25 mcg tablet RxNorm: 854083 1 Tablet(s) PO daily 08/01/2018 Inactive Kenalog 40 mg/mL suspension for injection RxNorm: 7412466 Milliliter(s) Inj 06/27/2018 06/27/2018 Inactive doxycycline hyclate 100 mg tablet RxNorm: 6819921 1 Tablet(s) PO BID 06/27/2018 07/06/2018 Inactive alprazolam 1 mg tablet RxNorm: 676079 1 Tablet(s) PO TID as needed anxiety 06/08/2018 07/04/2018 Inactive Cymbalta 30 mg capsule,delayed release RxNorm: 093035 1 Capsule(s) PO daily 06/07/2018 06/08/2018 Inactive Bystolic 5 mg tablet RxNorm: 278072 1 Tablet(s) PO daily 201706/09/2018 Inactive oxycodone 5 mg tablet RxNorm: 6510000 1 Tablet(s) PO QID as needed for pain 06/07/2018 07/04/2018 Inactive Cymbalta 30 mg capsule,delayed release RxNorm: 411296 1 Capsule(s) PO daily 05/09/2018 06/06/2018 Inactive alprazolam 1 mg tablet RxNorm: 995103 1 Tablet(s) PO TID as needed anxiety 04/05/2018 05/03/2018 Inactive oxycodone 5 mg tablet RxNorm: 7910183 1 Tablet(s) PO QID as needed for pain 04/05/2018 05/04/2018 Inactive cyclobenzaprine 5 mg tablet RxNorm: 663183 1 Tablet(s) PO TID as needed muscle spasms 03/18/2018 06/01/2018 Inactive mupirocin 2 % topical cream RxNorm: 854653 1 Application TOP BID 03/11/2018 06/08/2018 Inactive hydrocodone 5 mg-acetaminophen 325 mg tablet RxNorm: 788059 1 Tablet(s) PO TID as needed for pain 03/10/2018 04/04/2018 Inactive alprazolam 1 mg tablet RxNorm: 040998 1 Tablet(s) PO TID as needed anxiety 03/10/2018 04/04/2018 Inactive hydrocodone 5 mg-acetaminophen 325 mg tablet RxNorm: 230528 1 Tablet(s) PO TID as needed for pain 02/09/2018 03/09/2018 Inactive alprazolam 1 mg tablet RxNorm: 923198 1 Tablet(s) PO TID as needed anxiety 02/09/2018 03/09/2018 Inactive alprazolam 1 mg tablet RxNorm: 299239 1 Tablet(s) PO TID as needed anxiety 01/10/2018 02/08/2018 Inactive pantoprazole 40 mg tablet,delayed release RxNorm: 068536 1 Tablet(s) PO daily 12/27/2017 06/08/2018 Inactive pantoprazole 40 mg tablet,delayed release RxNorm: 313150 1 Tablet(s) PO daily 12/27/2017 12/26/2017 Inactive hydrocodone 5 mg-acetaminophen 325 mg tablet RxNorm: 361115 1 Tablet(s) PO TID as needed for pain 12/09/2017 01/07/2018 Inactive alprazolam 1 mg tablet RxNorm: 090321 1 Tablet(s) PO TID as needed anxiety 12/09/2017 01/07/2018 Inactive alprazolam 1 mg tablet RxNorm: 559533 1 Tablet(s) PO TID as needed anxiety 11/09/2017 12/08/2017 Inactive hydrocodone 5 mg-acetaminophen 325 mg tablet RxNorm: 039879 1 Tablet(s) PO TID as needed for pain 11/09/2017 12/08/2017 Inactive prednisone 20 mg tablet RxNorm: 788145 2 Tablet(s) PO daily 10/24/2017 Inactive hydrocodone 5 mg-acetaminophen 325 mg tablet RxNorm: 117468 1 Tablet(s) PO TID as needed for pain 10/14/2017 2017 Inactive Multaq 400 mg tablet RxNorm: 713097 1 Tablet(s) PO BID managed by cardiology No Start Date Active Levothroid 25 mcg tablet RxNorm: 488006 1 Tablet(s) PO daily No Start Date 07/04/2018 Inactive hydrocodone 5 mg-acetaminophen 325 mg tablet RxNorm: 881638 1 Tablet(s) PO TID as needed for pain No Start Date 10/13/2017 Inactive Eliquis 5 mg tablet RxNorm: 3780560 1 Tablet(s) PO BID No Start Date 09/01/2018 Inactive cyclobenzaprine 5 mg tablet RxNorm: 075158 1 Tablet(s) PO TID as needed muscle spasms No Start Date 03/17/2018 Inactive Epclusa 400 mg-100 mg tablet RxNorm: 4558589 1 Tablet(s) PO daily No Start Date 07/11/2018 Inactive carvedilol 6.25 mg tablet RxNorm: 829626 1 Tablet(s) PO BID No Start Date 09/01/2018 Inactive pantoprazole 40 mg tablet,delayed release RxNorm: 808639 1 Tablet(s) PO daily No Start Date 12/26/2017 Inactive alprazolam 1 mg tablet RxNorm: 482538 1 Tablet(s) PO TID as needed anxiety No Start Date 2017 Inactive flecainide 100 mg tablet RxNorm: 300155 1 Tablet(s) PO BID No Start Date 06/08/2018 Inactive metoprolol succinate ER 50 mg tablet,extended release 24 hr RxNorm: 797362 1/2 Tablet(s) PO daily managed by Dr Wilder No Start Date 06/08/2018 Inactive duloxetine 60 mg capsule,delayed release RxNorm: 458536 2 Capsule(s) PO daily No Start Date 11/30/2017 Inactive Medication Administered Medication Codes Instructions Start Date Status Kenalog 40 mg/mL suspension for injection RxNorm: 7118670 Milliliter 06/27/2018 No longer Active Immunizations Vaccine Codes Date Status Influenza CVX: 141 06/20/2018 completed Assessments Condition Codes Effective Dates Essential (primary) hypertension ICD-10: I10 ICD-9: 401.1 10/25/2018 Paroxysmal atrial fibrillation ICD-10: I48.0 ICD-9: 427.31 10/25/2018 Chronic pain syndrome ICD-10: G89.4 ICD-9: 338.4 10/25/2018 Other specified hypothyroidism ICD-10: E03.8 ICD-9: 244.8 08/26/2018 Diverticulitis of large intestine without perforation or abscess without bleeding ICD-10: K57.32 ICD-9: 562.11 08/26/2018 Supraventricular tachycardia ICD-10: I47.1 ICD-9: 427.89 08/26/2018 Dysphagia, oropharyngeal phase ICD-10: R13.12 ICD-9: 787.22 08/19/2018 Major depressive disorder, single episode, moderate ICD-10: F32.1 ICD-9: 296.22 08/19/2018 Generalized anxiety disorder ICD-10: F41.1 ICD-9: 300.00 08/19/2018 Acute bronchitis due to other specified organisms ICD-10: J20.8 ICD-9: 466.0 06/27/2018 Encounter for immunization ICD-10: Z23 ICD-9: V03.82 06/20/2018 Other hydrocele ICD-10: N43.2 ICD-9: 603.8 05/09/2018 Left lower quadrant pain ICD-10: R10.32 ICD-9: 789.09 01/18/2018 Low back pain ICD-10: M54.5 ICD-9: 724.2 01/18/2018 Gastro-esophageal reflux disease without esophagitis ICD-10 [...] Effective Dates Notes Full Exam - General 1994 Constitutional general appearance Overall: well developed 10/25/2018 None Full Exam - General 1994 Constitutional general appearance Overall: in no acute distress 10/25/2018 None Full Exam - General 1995 Constitutional general appearance Overall: well nourished 10/25/2018 None Full Exam - General 1995 Eyes conjunctiva /eyelids Overall: conjunctiva clear 10/25/2018 None Full Exam - General 1995 Eyes conjunctiva /eyelids Overall: cornea clear 10/25/2018 None Full Exam - General 1995 Eyes conjunctiva /eyelids Overall: eyelids normal 10/25/2018 None Full Exam - General 1995 Ears/Nose/Throat lips/teeth/gingiva Overall: benign lips 10/25/2018 None Full Exam - General 1995 Ears/Nose/Throat [...] 1994 Constitutional general appearance Overall: well developed 10/20/2018 None Full Exam - General 1994 [...] - General 1995 Eyes conjunctiva /eyelids Overall: eyelids normal 10/20/2018 [...] normal 06/27/2018 None Full Exam - General 1995 Ears/Nose/Throat otoscopic exam Overall: external auditory canals [...] distress 06/20/2018 None Full Exam - General 1994 Constitutional general appearance Overall: well nourished 06/20/2018 None Full Exam - General 1994 Eyes conjunctiva /eyelids Overall: conjunctiva clear 06/20/2018 None Full Exam - General 1994 Eyes conjunctiva /eyelids Overall: cornea clear 06/20/2018 None Full Exam - General 1994 Eyes conjunctiva /eyelids Overall: eyelids normal 06/20/2018 None Full Exam - General 1995 Ears/Nose/Throat lips/teeth/gingiva Overall: benign lips 06/20/2018 None Full Exam - General 1994 [...] nourished 01/18/2018 None Full Exam - General 1995 Eyes conjunctiva /eyelids Overall: conjunctiva clear 01/18/2018 None Full Exam - General 1995 Eyes conjunctiva /eyelids Overall: cornea clear 01/18/2018 None Full Exam - General 1994 Eyes conjunctiva /eyelids Overall: eyelids normal 01/18/2018 None Full Exam - General 1994 Eyes pupils and irises Overall: pupils equal, round, reactive to light and accomodation 01/18/2018 None Full Exam - General 1994 Ears/Nose/Throat lips/teeth/gingiva Overall: benign lips 01/18/2018 None Full Exam - General 1995 Ears/Nose/Throat [...] distress 12/10/2017 None Full Exam - General 1995 Constitutional general appearance Overall: well nourished 12/10/2017 [...] Procedure Codes Date THER/PROPH/DIAG INJ SC/IM CPT-4: 00521 06/27/2018 TRIAMCINOLONE ACET INJ NOS CPT-4: J3301 06/27/2018 IMMUNIZATION ADMIN CPT -4: 61364 06/20/2018 FLU VACC PRSV FREE INC ANTIG CPT-4: 56682 06/20/2018 Vital Signs Date Vital 10/25/2018 Blood Pressure 1: 122/62 Code : 8480-6 BMI: 29.8 Code : 93257-5 Heart Rate 1 : 88 bpm Height: 6' SpO2: 98% Weight: 220 lbs 10/20/2018 Blood Pressure 1: 128/82 Code : 8480-6 BMI: 29.8 Code : 73449-1 Heart Rate 1 : 90 bpm Height: 6' SpO2: 96% Weight: 220 lbs 08/26/2018 Blood Pressure 1: 122/84 Code : 8480-6 BMI: 30.2 Code : 52774-4 Heart Rate 1 : 104 bpm Height: 6' SpO2: 97% Weight: 223 lbs 08/19/2018 Blood Pressure 1: 106/62 Code : 8480-6 BMI: 30.2 Code : 62841-1 Heart Rate 1 : 86 bpm Height: 6' SpO2: 94% Temperature: 36.5 (C) / 97.7 (F) Weight: 223 lbs 07/21/2018 Blood Pressure 1: 112/64 Code : 8480-6 BMI: 30.7 Code : 52842-3 Heart Rate 1 : 93 bpm Height: 6' SpO2: 96% Weight: 226 lbs 06/27/2018 Blood Pressure 1: 106/56 Code : 8480-6 Heart Rate 1: 78 bpm Height: SpO2: 96% Temperature: 36.7 (C) / 98.1 (F) Weight: 228 lbs 06/20/2018 Blood Pressure 1: 130/76 Code : 8480-6 BMI: 30.7 Code : 90628-7 Heart Rate 1 : 83 bpm Height: 6' SpO2: 96% Weight: 226 lbs 05/20/2018 Blood Pressure 1: 124/70 Code : 8480-6 Heart Rate 1: 88 bpm Height: 6' 05/09/2018 Blood Pressure 1: 126/82 Code : 8480-6 BMI: 30.7 Code : 64365-1 Heart Rate 1 : 102 bpm Height: 6' SpO2: 97% Weight: 226 lbs 03/11/2018 Blood Pressure 1: 128/72 Code : 8480-6 BMI: 30.7 Code : 53009-2 Heart Rate 1 : 90 bpm Height: 6' SpO2: 96% Weight: 226 lbs 01/18/2018 Blood Pressure 1: 138/70 Code : 8480-6 BMI: 30.5 Code : 58056-4 Heart Rate 1 : 80 bpm Height: 6' SpO2: 95% Weight: 225 lbs 12/10/2017 Blood Pressure 1: 140/64 Code : 8480-6 BMI: 30.7 Code : 45284-9 Heart Rate 1 : 71 bpm Height: 6' SpO2: 96% Weight: 226 lbs 11/09/2017 Blood Pressure 1: 102/68 Code : 8480-6 Heart Rate 1: 90 bpm Height: 6' SpO2: 97% Weight: 10/19/2017 Blood Pressure 1: 136/82 Code : 8480-6 Heart Rate 1: 98 bpm Height: SpO2: 96% Weight: 09/30/2017 Blood Pressure 1: 130/88 Code : 8480-6 BMI: 31.3 Code : 73652-5 Heart Rate 1 : 101 bpm Height: [...] data Encounters Encounter Performer Location Codes Date 66000 EST. PATIENT, LEVEL IV Diagnosis: Paroxysmal atrial fibrillation[ICD10: I48.0] Diagnosis: Chronic pain syndrome[ICD10: G89.4] Diagnosis: Essential (primary) hypertension[ICD10: I10] Alissa Cowan MD, [facility] CPT-4: 89336 10/25/2018 04454 EST. PATIENT, LEVEL III Diagnosis: Paroxysmal atrial fibrillation[ICD10: I48.0] Diagnosis: Chronic pain syndrome[ICD10: G89.4] Diagnosis: Essential (primary) hypertension[ICD10: I10] Alissa Cowan MD, [facility] CPT-4: 93810 10/20/2018 27905 EST. PATIENT, LEVEL III Diagnosis: Diverticulitis of large intestine without perforation or abscess without bleeding[ICD10: K57.32] Diagnosis: Essential (primary) hypertension[ICD10: I10] Diagnosis: Chronic pain syndrome[ICD10: G89.4] Diagnosis: Supraventricular tachycardia[ICD10: I47.1] Diagnosis: Other specified hypothyroidism[ICD10: E03.8] Alissa Cowan MD, [facility] CPT-4: 65913 08/26/2018 14976 EST. PATIENT, LEVEL III Diagnosis: Generalized anxiety disorder[ICD10: F41.1] Diagnosis: Major depressive disorder, single episode, moderate[ICD10: F32.1] Diagnosis: Chronic pain syndrome[ICD10: G89.4] Diagnosis: Essential (primary) hypertension[ICD10: I10] Diagnosis: Other specified hypothyroidism[ICD10: E03.8] Diagnosis: Dysphagia, oropharyngeal phase[ICD10: R13.12] Diagnosis: Supraventricular tachycardia[ICD10: I47.1] Alissa Cowan MD, [facility] CPT-4: 50356 08/19/2018 44347 EST. PATIENT, LEVEL IV Diagnosis: Generalized anxiety disorder[ICD10: F41.1] Diagnosis: Major depressive disorder, single episode, moderate[ICD10: F32.1] Diagnosis: Chronic pain syndrome[ICD10: G89.4] Diagnosis: Essential (primary) hypertension[ICD10: I10] Alissa Cowan MD, [facility] CPT-4: 05990 07/21/2018 38673 EST. PATIENT, LEVEL IV Diagnosis: Acute bronchitis due to other specified organisms[ICD10: J20.8] Alissa Cowan MD, [facility] CPT-4: 84378 06/27/2018 58373 EST. PATIENT, LEVEL III Diagnosis: Paroxysmal atrial fibrillation[ICD10: I48.0] Diagnosis: Chronic pain syndrome[ICD10: G89.4] Diagnosis: Essential (primary) hypertension[ICD10: I10] Diagnosis: Encounter for immunization[ICD10: Z23] Alissa Cowan MD, [facility] CPT-4: 69901 06/20/2018 (58120) Miscellaneous no charge Diagnosis: Generalized anxiety disorder[ICD10: F41.1] Alissa Cowan MD, [facility] CPT-4: 72304 05/20/2018 00941 EST. PATIENT, LEVEL IV Diagnosis: Generalized anxiety disorder[ICD10: F41.1] Diagnosis: Major depressive disorder, single episode, moderate[ICD10: F32.1] Diagnosis: Other hydrocele[ICD10: N43.2] Diagnosis: Chronic pain syndrome[ICD10: G89.4] Diagnosis: Essential (primary) hypertension[ICD10: I10] Alissa Cowan MD, [facility] CPT-4: 56182 05/09/2018 23862 EST. PATIENT, LEVEL IV Diagnosis: Chronic pain syndrome[ICD10: G89.4] Diagnosis: Generalized anxiety disorder[ICD10: F41.1] Diagnosis: Major depressive disorder, single episode, moderate[ICD10: F32.1] Diagnosis: Other hydrocele[ICD10: N43.2] Alissa Cowan MD, [facility] CPT-4 : 73193 03/11/2018 08377 EST. PATIENT, LEVEL IV Diagnosis: Chronic pain syndrome[ICD10: G89.4] Diagnosis: Low back pain[ICD10: M54.5] Diagnosis: Generalized anxiety disorder[ICD10: F41.1] Diagnosis: Major depressive disorder, single episode, moderate[ICD10: F32.1] Diagnosis: Left lower quadrant pain[ICD10: R10.32] Alissa Cowan MD, [facility] CPT-4: 99803 01/18/2018 16355 EST. PATIENT, LEVEL IV Diagnosis: Chronic pain syndrome[ICD10: G89.4] Diagnosis: Low back pain[ICD10: M54.5] Diagnosis: Generalized anxiety disorder[ICD10: F41.1] Diagnosis: Major depressive disorder, single episode, moderate[ICD10: F32.1] Alissa Cowan MD, [facility] CPT-4: 64418 12/10/2017 47584 EST. PATIENT, LEVEL IV Diagnosis: Chronic pain syndrome[ICD10: G89.4] Diagnosis: Low back pain[ICD10: M54.5] Diagnosis: Generalized anxiety disorder[ICD10: F41.1] Diagnosis: Major depressive disorder, single episode, moderate[ICD10: F32.1] Alissa Cowan MD, [facility] CPT-4: 11680 11/09/2017 73744 EST. PATIENT, LEVEL IV Diagnosis: Chronic pain syndrome[ICD10: G89.4] Diagnosis: Low back pain[ICD10: M54.5] Diagnosis: Generalized anxiety disorder[ICD10: F41.1] Diagnosis: Major depressive disorder, single episode, moderate[ICD10: F32.1] Alissa Cowan MD, [facility] CPT-4: 16984 10/19/2017 OFFICE VISIT, NEW - LEVEL 4 Diagnosis: Chronic pain syndrome[ICD10: G89.4] Diagnosis: Low back pain[ICD10: M54.5] Diagnosis: Headache[ICD10: R51] Diagnosis: Generalized anxiety disorder[ICD10: F41.1] Diagnosis: Major depressive disorder, single episode, moderate[ICD10: F32.1] Diagnosis: Gastro-esophageal reflux disease without esophagitis[ICD10: K21.9] Diagnosis: Paroxysmal atrial fibrillation[ICD10: I48.0] Alissa Cowan MD, [facility] CPT-4: 53275 09/30/2017 Plan of Care Planned Activity Notes Codes Status Date Visit Plan: Recurrent A.fib/SVT - 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 10/25/2018 Appointment: Alissa Jimenez WPtel: [address] [place], [place] [phone] (30 min) [facility] 10/25/2018 Patient Education: Patient Medication Summary Completed 10/25/2018 [facility]ment[facility] [phone] [facility] ([facility] min[facility] Moderate 10/21/2018 Visit Plan: Chronic [...] condition. 10/20/2018 Appointment: [facility] [phone] [facility] ([facility] min) Complex 10/20/2018 Patient Education: Patient [...] of control. 08/26/2018 Appointment: [facility] [phone] [facility] [place] (15 min) Moderate 08/26/2018 Patient Education: Patient [...] [place] 08/19/2018 Appointment: Al[facility]el[facility] [phone] [facility] [place] (30 min) Complex 08/19/2018 Patient Education: Patient [...] taper off pain medication. 07/21/2018 Appointment: Alissa Jimenez WPtel: [phone] [facility] (15 min) Moderate 07/21/2018 Patient Education: Patient Medication Summary Completed 07/21/2018 Patient Education: Depression Completed 07/21/2018 Visit Plan: Bronchitis - acute case of bronchitis identified. Pt has been given antibiotics, steroids as appropriate, and pt has been instructed to call if symptoms are not improved, or if symptoms acutely worsen. 06/27/2018 Appointment: Alissa Jimenez WPtel: [phone] [facility] (15 min) Moderate 06/27/2018 Patient Education: Patient [...] over- medication. 06/20/2018 Appointment: Alissa Jimenez WPtel: [phone] [facility] (15 min) Moderate 06/20/2018 Patient Education: Patient [...] over-medication. 05/09/2018 Appointment: [facility]el[facility] [phone] [facility] (15 min) Moderate 05/09/2018 Patient Education: Patient Medication Summary Completed 05/09/2018 Appointment: [facility]el[facility] [phone] [facility] (30 min) Complex 03/22/2018 Referral: External, Ordering Provider they will call him for appt Initiated Care Plan: Referral Order SNOMED-CT : [id number] Pending 03/13/2018 Visit Plan: Chronic Pain Syndrome [...] to urology 03/11/2018 Appointment: [facility] Jimenez [facility]el[facility] [phone] [facility] (15 min) Moderate 03/11/2018 Patient Education: Patient [...] as indicated. 01/18/2018 Appointment: Alissa Jimenez WPtel: [phone] [facility] [place] (15 min) Moderate 01/18/2018 Patient Education: Patient [...] current medications. 12/10/2017 Appointment: [facility]Ptel[facility] [phone] [facility] [place] (30 min) Complex 12/10/2017 Patient Education: Patient Medication Summary Completed 12/10/2017 Appointment: Alissa Jimenez WPtel: [facility] [place] (30 min) Complex 12/07/2017 Appointment: Al[facility] Jimenez WPtel[facility] [phone] [facility] [place] (15 min) Moderate 11/19/2017 Visit Plan: [...] current medications. 10/19/2017 Appointment: Alissa Jimenez WPtel: [address] [place], [place] [address] (30 min) [facility] 10/19/2017 Patient Education: Patient Medication Summary Completed [...] uncontrolled. 09/30/2017 Appointment: [facility] Jimenez [facility]Ptel[facility] [phone] [facility] [place] New Patient 09/30/2017 Patient Education: Patient [...] . Recurrent A.fib/SVT - discussed with pt's gas station clerk - verified medications and pt is to [...] Referral to urology - Todd Rodrigez fax [phone] attention caleb FRITZ in [place] . Anxiety - the patient has uncontrolled [...] alcohol because it will cause vomiting Call [phone] to get your thyroid ultrasound scheduled. . [...]
--- OUTSIDE RECORDS SUMMARY | 2018-11-24 04:52 | XMS REPORT | CCD ---
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 [employer] Engineer Name Role Phone PP Unavailable CCM Unavailable Summary Purpose Interface Exchange Insurance Providers Payer name Policy type / Coverage type Covered constitution party ID Effective Begin Date Effective End Date [employer] - Medicaid [id number] 2017 Unknown Family history Father Diagnosis Age At Onset No Known Diseases N/A Mother Diagnosis Age At Onset No Known Diseases N/A Social History Social History Element Codes Description Effective Dates Marital status Unknown Single 09/30/2017 Employment Unknown Currently unemployed 09/30/[address]: 1845436 Former smoker 09/30/[address]: 417285603 Never drinks alcohol 09/30/2017 On Disability Unknown [...] Start Date Stop Date Status Fill Instructions cyclobenzaprine 5 mg tablet RxNorm: 285017 1 Tablet(s) PO TID as needed muscle spasms 10/31/2018 No Stop Date Active cyclobenzaprine 5 mg tablet RxNorm: 029483 1 Tablet(s) PO TID as needed muscle spasms 10/25/2018 10/30/2018 Inactive Eliquis 5 mg tablet RxNorm: 6975995 1 Tablet(s) PO BID 2018 No Stop Date Active oxycodone 5 mg tablet RxNorm: 2942119 1 Tablet(s) PO QID as needed for pain 10/04/2018 11/02/2018 Active alprazolam 1 mg tablet RxNorm: 785713 1 Tablet(s) PO TID as needed anxiety 10/04/2018 11/02/2018 Active oxycodone 5 mg tablet RxNorm: 0645760 1 Tablet(s) PO QID as needed for pain 10/04/2018 10/03/2018 Inactive alprazolam 1 mg tablet RxNorm: 163270 1 Tablet(s) PO TID as needed anxiety 09/02/2018 10/01/2018 Inactive Eliquis 5 mg tablet RxNorm: 0055089 1 Tablet(s) PO BID 201710/03/2018 Inactive carvedilol 6.25 mg tablet RxNorm: 211658 1 Tablet(s) PO BID 10/18/2018 Inactive oxycodone 5 mg tablet RxNorm: 0775392 1 Tablet(s) PO QID as needed for pain 09/02/2018 10/01/2018 Inactive Flagyl 500 mg tablet RxNorm: 157201 1 Tablet(s) PO TID 201709/04/2018 Inactive metoprolol succinate ER 25 mg tablet,extended release 24 hr RxNorm: 851435 1/2 Tablet(s) PO daily 08/19/2018 10/19/2018 Inactive Levothroid 25 mcg tablet RxNorm: 417280 1 Tablet(s) PO daily No Stop Date Active oxycodone 5 mg tablet RxNorm: 1585995 1 Tablet(s) PO QID as needed for pain 08/02/2018 08/31/2018 Inactive alprazolam 1 mg tablet RxNorm: 056630 1 Tablet(s) PO TID as needed anxiety 08/02/2018 08/31/2018 Inactive alprazolam 1 mg tablet RxNorm: 700549 1 Tablet(s) PO TID as needed anxiety 07/05/2018 08/01/2018 Inactive oxycodone 5 mg tablet RxNorm: 9285148 1 Tablet(s) PO QID as needed for pain 07/05/2018 08/01/2018 Inactive Levothroid 25 mcg tablet RxNorm: 339585 1 Tablet(s) PO daily 08/01/2018 Inactive Kenalog 40 mg/mL suspension for injection RxNorm: 9843964 Milliliter(s) Inj 06/27/2018 06/27/2018 Inactive doxycycline hyclate 100 mg tablet RxNorm: 2356675 1 Tablet(s) PO BID 06/27/2018 07/06/2018 Inactive alprazolam 1 mg tablet RxNorm: 754380 1 Tablet(s) PO TID as needed anxiety 06/08/2018 07/04/2018 Inactive Cymbalta 30 mg capsule,delayed release RxNorm: 378189 1 Capsule(s) PO daily 06/07/2018 06/08/2018 Inactive Bystolic 5 mg tablet RxNorm: 041773 1 Tablet(s) PO daily 201706/09/2018 Inactive oxycodone 5 mg tablet RxNorm: 1023197 1 Tablet(s) PO QID as needed for pain 06/07/2018 07/04/2018 Inactive Cymbalta 30 mg capsule,delayed release RxNorm: 856873 1 Capsule(s) PO daily 05/09/2018 06/06/2018 Inactive alprazolam 1 mg tablet RxNorm: 387185 1 Tablet(s) PO TID as needed anxiety 04/05/2018 05/03/2018 Inactive oxycodone 5 mg tablet RxNorm: 4484831 1 Tablet(s) PO QID as needed for pain 04/05/2018 05/04/2018 Inactive cyclobenzaprine 5 mg tablet RxNorm: 346614 1 Tablet(s) PO TID as needed muscle spasms 03/18/2018 06/01/2018 Inactive mupirocin 2 % topical cream RxNorm: 258860 1 Application TOP BID 03/11/2018 06/08/2018 Inactive hydrocodone 5 mg-acetaminophen 325 mg tablet RxNorm: 021308 1 Tablet(s) PO TID as needed for pain 03/10/2018 04/04/2018 Inactive alprazolam 1 mg tablet RxNorm: 904213 1 Tablet(s) PO TID as needed anxiety 03/10/2018 04/04/2018 Inactive hydrocodone 5 mg-acetaminophen 325 mg tablet RxNorm: 810271 1 Tablet(s) PO TID as needed for pain 02/09/2018 03/09/2018 Inactive alprazolam 1 mg tablet RxNorm: 368037 1 Tablet(s) PO TID as needed anxiety 02/09/2018 03/09/2018 Inactive alprazolam 1 mg tablet RxNorm: 888502 1 Tablet(s) PO TID as needed anxiety 01/10/2018 02/08/2018 Inactive pantoprazole 40 mg tablet,delayed release RxNorm: 980950 1 Tablet(s) PO daily 12/27/2017 06/08/2018 Inactive pantoprazole 40 mg tablet,delayed release RxNorm: 637383 1 Tablet(s) PO daily 12/27/2017 12/26/2017 Inactive hydrocodone 5 mg-acetaminophen 325 mg tablet RxNorm: 961239 1 Tablet(s) PO TID as needed for pain 12/09/2017 01/07/2018 Inactive alprazolam 1 mg tablet RxNorm: 599989 1 Tablet(s) PO TID as needed anxiety 12/09/2017 01/07/2018 Inactive alprazolam 1 mg tablet RxNorm: 039787 1 Tablet(s) PO TID as needed anxiety 11/09/2017 12/08/2017 Inactive hydrocodone 5 mg-acetaminophen 325 mg tablet RxNorm: 932102 1 Tablet(s) PO TID as needed for pain 11/09/2017 12/08/2017 Inactive prednisone 20 mg tablet RxNorm: 230896 2 Tablet(s) PO daily 10/24/2017 Inactive hydrocodone 5 mg-acetaminophen 325 mg tablet RxNorm: 264685 1 Tablet(s) PO TID as needed for pain 10/14/2017 2017 Inactive Multaq 400 mg tablet RxNorm: 025676 1 Tablet(s) PO BID managed by cardiology No Start Date Active Levothroid 25 mcg tablet RxNorm: 332997 1 Tablet(s) PO daily No Start Date 07/04/2018 Inactive hydrocodone 5 mg-acetaminophen 325 mg tablet RxNorm: 911574 1 Tablet(s) PO TID as needed for pain No Start Date 10/13/2017 Inactive Eliquis 5 mg tablet RxNorm: 9546830 1 Tablet(s) PO BID No Start Date 09/01/2018 Inactive cyclobenzaprine 5 mg tablet RxNorm: 659698 1 Tablet(s) PO TID as needed muscle spasms No Start Date 03/17/2018 Inactive Epclusa 400 mg-100 mg tablet RxNorm: 1151051 1 Tablet(s) PO daily No Start Date 07/11/2018 Inactive carvedilol 6.25 mg tablet RxNorm: 300062 1 Tablet(s) PO BID No Start Date 09/01/2018 Inactive pantoprazole 40 mg tablet,delayed release RxNorm: 802502 1 Tablet(s) PO daily No Start Date 12/26/2017 Inactive alprazolam 1 mg tablet RxNorm: 842308 1 Tablet(s) PO TID as needed anxiety No Start Date 2017 Inactive flecainide 100 mg tablet RxNorm: 502434 1 Tablet(s) PO BID No Start Date 06/08/2018 Inactive metoprolol succinate ER 50 mg tablet,extended release 24 hr RxNorm: 511248 1/2 Tablet(s) PO daily managed by Dr Wilder No Start Date 06/08/2018 Inactive duloxetine 60 mg capsule,delayed release RxNorm: 323615 2 Capsule(s) PO daily No Start Date 11/30/2017 Inactive Medication Administered Medication Codes Instructions Start Date Status Kenalog 40 mg/mL suspension for injection RxNorm: 1040018 Milliliter 06/27/2018 No longer Active Immunizations Vaccine Codes Date Status Influenza CVX: 141 06/20/2018 completed Assessments Condition Codes Effective Dates Chronic pain syndrome ICD-10: G89.4 ICD-9: 338.4 10/25/2018 Paroxysmal atrial fibrillation ICD-10: I48.0 ICD-9: 427.31 10/25/2018 Essential (primary) hypertension ICD-10: I10 ICD-9: 401.1 10/25/2018 Supraventricular tachycardia ICD-10: I47.1 ICD-9: 427.89 08/26/2018 Diverticulitis of large intestine without perforation or abscess without bleeding ICD-10: K57.32 ICD-9: 562.11 08/26/2018 Other specified hypothyroidism ICD-10: E03.8 ICD-9: 244.8 08/26/2018 Major depressive disorder, single episode, moderate ICD-10: F32.1 ICD-9: 296.22 08/19/2018 Generalized anxiety disorder ICD-10: F41.1 ICD-9: 300.00 08/19/2018 Dysphagia, oropharyngeal phase ICD-10: R13.12 ICD-9: 787.22 08/19/2018 Acute bronchitis due to other specified organisms ICD-10: J20.8 ICD-9: 466.0 06/27/2018 Encounter for immunization ICD-10: Z23 ICD-9: V03.82 06/20/2018 Other hydrocele ICD-10: N43.2 ICD-9: 603.8 05/09/2018 Low back pain ICD-10: M54.5 ICD-9: 724.2 01/18/2018 Left lower quadrant pain ICD-10: R10.32 ICD-9: 789.09 01/18/2018 Headache ICD-10: R51 ICD-9: 784.0 09/30/2017 Gastro-esophageal reflux disease without esophagitis ICD-10 : K21.9 ICD-9: 530.81 09/30/2017 Reason For Visit Reason For Visit [...] 10/25/2018 None Full Exam - General 1995 Respiratory auscultation Diffuse: diminished 10/25/2018 None Full Exam - General 1995 Respiratory respiratory effort/rhythm Overall: no retractions 10/25/2018 None Full Exam - General 1995 Respiratory respiratory effort/rhythm Overall: normal rate 10/25/2018 None Full Exam - General 1995 Cardiovascular auscultation of heart Rate: regular rate 10/25/2018 None Full Exam - General 1994 Cardiovascular auscultation of heart Rhythm: irregularly irregular rhythm 10/25/2018 None Full Exam - General 1995 Musculoskeletal spine, ribs and pelvis Spine: tender @ lumbar spine 10/25/2018 None Full Exam - General 1995 Musculoskeletal gait and station Overall: normal gait [...] distress 10/20/2018 None Full Exam - General 1994 Constitutional general appearance Overall: well nourished 10/20/2018 None Full Exam - General 1994 Eyes conjunctiva /eyelids Overall: conjunctiva clear 10/20/2018 None Full Exam - General 1994 Eyes conjunctiva /eyelids Overall: cornea clear 10/20/2018 None Full Exam - General 1995 Eyes conjunctiva /eyelids Overall: eyelids normal 10/20/2018 None Full Exam - General 1995 Ears/Nose/Throat lips/teeth/gingiva Overall: benign lips 10/20/2018 None Full Exam - General 1994 Ears/Nose/Throat oral cavity/pharynx/larynx Overall: oral mucosa clear 10/20/2018 None Full Exam - General 1995 Respiratory auscultation Diffuse: diminished 10/20/2018 None Full Exam - General 1995 Respiratory respiratory effort/rhythm Overall: no retractions 10/20/2018 None Full Exam - General 1995 Respiratory respiratory effort/rhythm Overall: normal rate 10/20/2018 None Full Exam - General 1995 Cardiovascular auscultation of heart Rate: regular rate 10/20/2018 None Full Exam - General 1994 Cardiovascular auscultation of heart Rhythm: irregularly irregular rhythm 10/20/2018 None Full Exam - General 1994 Musculoskeletal spine, ribs and pelvis Spine: tender @ lumbar spine 10/20/2018 None Full Exam - General 1995 Musculoskeletal gait and station Overall: normal gait [...] lips 07/21/2018 None Full Exam - General 1995 Ears/Nose/Throat [...] level 06/27/2018 None Full Exam - General 1995 Ears/Nose/Throat lips/teeth/gingiva Overall: benign lips 06/27/2018 None Full Exam - General 1994 Ears/Nose/Throat oral cavity/pharynx/larynx Overall: oral mucosa clear 06/27/2018 None Full Exam - General 1995 Ears/Nose/Throat oral cavity/pharynx/larynx Posterior Pharynx: clear post [...] Procedure Codes Date THER/PROPH/DIAG INJ SC/IM CPT-4: 00099 06/27/2018 TRIAMCINOLONE ACET INJ NOS CPT-4: J3301 06/27/2018 IMMUNIZATION ADMIN CPT -4: 68860 06/20/2018 FLU VACC PRSV FREE INC ANTIG CPT-4: 15049 06/20/2018 Vital Signs Date Vital 10/25/2018 Blood Pressure 1: 122/62 Code : 8480-6 BMI: 29.8 Code : 17636-3 Heart Rate 1 : 88 bpm Height: 6' SpO2: 98% Weight: 220 lbs 10/20/2018 Blood Pressure 1: 128/82 Code : 8480-6 BMI: 29.8 Code : 54045-3 Heart Rate 1 : 90 bpm Height: 6' SpO2: 96% Weight: 220 lbs 08/26/2018 Blood Pressure 1: 122/84 Code : 8480-6 BMI: 30.2 Code : 64305-3 Heart Rate 1 : 104 bpm Height: 6' SpO2: 97% Weight: 223 lbs 08/19/2018 Blood Pressure 1: 106/62 Code : 8480-6 BMI: 30.2 Code : 18907-3 Heart Rate 1 : 86 bpm Height: 6' SpO2: 94% Temperature: 36.5 (C) / 97.7 (F) Weight: 223 lbs 07/21/2018 Blood Pressure 1: 112/64 Code : 8480-6 BMI: 30.7 Code : 83059-7 Heart Rate 1 : 93 bpm Height: 6' SpO2: 96% Weight: 226 lbs 06/27/2018 Blood Pressure 1: 106/56 Code : 8480-6 Heart Rate 1: 78 bpm Height: SpO2: 96% Temperature: 36.7 (C) / 98.1 (F) Weight: 228 lbs 06/20/2018 Blood Pressure 1: 130/76 Code : 8480-6 BMI: 30.7 Code : 08242-3 Heart Rate 1 : 83 bpm Height: 6' SpO2: 96% Weight: 226 lbs 05/20/2018 Blood Pressure 1: 124/70 Code : 8480-6 Heart Rate 1: 88 bpm Height: 6' 05/09/2018 Blood Pressure 1: 126/82 Code : 8480-6 BMI: 30.7 Code : 87185-0 Heart Rate 1 : 102 bpm Height: 6' SpO2: 97% Weight: 226 lbs 03/11/2018 Blood Pressure 1: 128/72 Code : 8480-6 BMI: 30.7 Code : 55117-4 Heart Rate 1 : 90 bpm Height: 6' SpO2: 96% Weight: 226 lbs 01/18/2018 Blood Pressure 1: 138/70 Code : 8480-6 BMI: 30.5 Code : 16141-1 Heart Rate 1 : 80 bpm Height: 6' SpO2: 95% Weight: 225 lbs 12/10/2017 Blood Pressure 1: 140/64 Code : 8480-6 BMI: 30.7 Code : 05114-1 Heart Rate 1 : 71 bpm Height: 6' SpO2: 96% Weight: 226 lbs 11/09/2017 Blood Pressure 1: 102/68 Code : 8480-6 Heart Rate 1: 90 bpm Height: 6' SpO2: 97% Weight: 10/19/2017 Blood Pressure 1: 136/82 Code : 8480-6 Heart Rate 1: 98 bpm Height: SpO2: 96% Weight: 09/30/2017 Blood Pressure 1: 130/88 Code : 8480-6 BMI: 31.3 Code : 14426-3 Heart Rate 1 : 101 bpm Height: [...] data Encounters Encounter Performer Location Codes Date EST. PATIENT, LEVEL IV Diagnosis: Paroxysmal atrial fibrillation[ICD10: I48.0] Diagnosis: Chronic pain syndrome[ICD10: G89.4] Diagnosis: Essential (primary) hypertension[ICD10: I10] [facility] CPT-4: 00039 10/25/2018 38916 EST. PATIENT, LEVEL III Diagnosis: Paroxysmal atrial fibrillation[ICD10: I48.0] Diagnosis: Chronic pain syndrome[ICD10: G89.4] Diagnosis: Essential (primary) hypertension[ICD10: I10] [facility] CPT-4: 12771 10/20/2018 60095 EST. PATIENT, LEVEL III Diagnosis: Diverticulitis of large intestine without perforation or abscess without bleeding[ICD10: K57.32] Diagnosis: Essential (primary) hypertension[ICD10: I10] Diagnosis: Chronic pain syndrome[ICD10: G89.4] Diagnosis: Supraventricular tachycardia[ICD10: I47.1] Diagnosis: Other specified hypothyroidism[ICD10: E03.8] [facility] MD, [facility] CPT-4: 89250 08/26/2018 40333 EST. PATIENT, LEVEL III Diagnosis: Generalized anxiety disorder[ICD10: F41.1] Diagnosis: Major depressive disorder, single episode, moderate[ICD10: F32.1] Diagnosis: Chronic pain syndrome[ICD10: G89.4] Diagnosis: Essential (primary) hypertension[ICD10: I10] Diagnosis: Other specified hypothyroidism[ICD10: E03.8] Diagnosis: Dysphagia, oropharyngeal phase[ICD10: R13.12] Diagnosis: Supraventricular tachycardia[ICD10: I47.1] Alissa Cowan MD, [facility] CPT-4: 77928 08/19/2018 97952 EST. PATIENT, LEVEL IV Diagnosis: Generalized anxiety disorder[ICD10: F41.1] Diagnosis: Major depressive disorder, single episode, moderate[ICD10: F32.1] Diagnosis: Chronic pain syndrome[ICD10: G89.4] Diagnosis: Essential (primary) hypertension[ICD10: I10] Alissa Cowan MD, [facility] CPT-4: 13655 07/21/2018 32844 EST. PATIENT, LEVEL IV Diagnosis: Acute bronchitis due to other specified organisms[ICD10: J20.8] Alissa Cowan MD, [facility] CPT-4: 54059 06/27/2018 45420 EST. PATIENT, LEVEL III Diagnosis: Paroxysmal atrial fibrillation[ICD10: I48.0] Diagnosis: Chronic pain syndrome[ICD10: G89.4] Diagnosis: Essential (primary) hypertension[ICD10: I10] Diagnosis: Encounter for immunization[ICD10: Z23] Alissa [facility] MD, [facility] CPT-4: 27347 06/20/2018 (08621) Miscellaneous no charge Diagnosis: Generalized anxiety disorder[ICD10: F41.1] Alissa Cowan MD, [facility] CPT-4: 76431 05/20/2018 03433 EST. PATIENT, LEVEL IV Diagnosis: Generalized anxiety disorder[ICD10: F41.1] Diagnosis: Major depressive disorder, single episode, moderate[ICD10: F32.1] Diagnosis: Other hydrocele[ICD10: N43.2] Diagnosis: Chronic pain syndrome[ICD10: G89.4] Diagnosis: Essential (primary) hypertension[ICD10: I10] Alissa Cowan MD, [facility] CPT-4: 80587 05/09/2018 11929 EST. PATIENT, LEVEL IV Diagnosis: Chronic pain syndrome[ICD10: G89.4] Diagnosis: Generalized anxiety disorder[ICD10: F41.1] Diagnosis: Major depressive disorder, single episode, moderate[ICD10: F32.1] Diagnosis: Other hydrocele[ICD10: N43.2] Alissa Cowan MD, [facility] CPT-4 : 81965 03/11/2018 70003 EST. PATIENT, LEVEL IV Diagnosis: Chronic pain syndrome[ICD10: G89.4] Diagnosis: Low back pain[ICD10: M54.5] Diagnosis: Generalized anxiety disorder[ICD10: F41.1] Diagnosis: Major depressive disorder, single episode, moderate[ICD10: F32.1] Diagnosis: Left lower quadrant pain[ICD10: R10.32] Alissa Cowan MD, [facility] CPT-4: 70411 01/18/2018 04996 EST. PATIENT, LEVEL IV Diagnosis: Chronic pain syndrome[ICD10: G89.4] Diagnosis: Low back pain[ICD10: M54.5] Diagnosis: Generalized anxiety disorder[ICD10: F41.1] Diagnosis: Major depressive disorder, single episode, moderate[ICD10: F32.1] Alissa Cowan MD, [facility] CPT-4: 68305 12/10/2017 76345 EST. PATIENT, LEVEL IV Diagnosis: Chronic pain syndrome[ICD10: G89.4] Diagnosis: Low back pain[ICD10: M54.5] Diagnosis: Generalized anxiety disorder[ICD10: F41.1] Diagnosis: Major depressive disorder, single episode, moderate[ICD10: F32.1] [facility] CPT-4: 08935 11/09/2017 81958 EST. PATIENT, LEVEL IV Diagnosis: Chronic pain syndrome[ICD10: G89.4] Diagnosis: Low back pain[ICD10: M54.5] Diagnosis: Generalized anxiety disorder[ICD10: F41.1] Diagnosis: Major depressive disorder, single episode, moderate[ICD10: F32.1] [facility] CPT-4: 41819 10/19/2017 OFFICE VISIT, NEW - LEVEL 4 Diagnosis: Chronic pain syndrome[ICD10: G89.4] Diagnosis: Low back pain[ICD10: M54.5] Diagnosis: Headache[ICD10: R51] Diagnosis: Generalized anxiety disorder[ICD10: F41.1] Diagnosis: Major depressive disorder, single episode, moderate[ICD10: F32.1] Diagnosis: Gastro-esophageal reflux disease without esophagitis[ICD10: K21.9] Diagnosis: Paroxysmal atrial fibrillation[ICD10: I48.0] [facility] CPT-4: 53398 09/30/2017 Plan of Care Planned Activity Notes Codes Status Date Visit Plan: Recurrent A.fib/SVT - 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 10/25/2018 Appointment: Alissa Jimenez [facility]el[facility] ([facility] min) Complex 10/25/2018 Patient Education: Patient Medication Summary Completed 10/25/2018 Appointment: Alissa Jimenez WPtel[facility] (15 min) Moderate 10/21/2018 Visit Plan: Chronic [...] condition. 10/20/2018 App[facility]ment: [facility] Jim[facility] [phone] [facility] (30 min) Complex 10/20/2018 Patient Education: [...] of control. 08/26/2018 Appointment: Al[facility] Jimenez [facility] [address] [facility] (15 min) Moderate 08/26/2018 Patient Education: [...] [place] 08/19/2018 Appointment: [facility] Jimenez [facility] [phone] [facility] [place] (30 min) Complex 08/19/2018 Patient Education: [...] medication. 07/21/2018 App[facility]: [facility] [phone] [facility] [place] (15 min) Moderate 07/21/2018 Patient Education: Patient Medication Summary Completed 07/21/2018 Patient Education: Depression Completed 07/21/2018 Visit Plan: Bronchitis - acute case of bronchitis identified. Pt has been given antibiotics, steroids as appropriate, and pt has been instructed to call if symptoms are not improved, or if symptoms acutely worsen. 06/27/2018 Appointment: Alissa Jimenez WPtel: [phone] [facility] (15 min) Moderate 06/27/2018 Patient Education: Patient [...] medication. 06/20/2018 Appointment: [facility] [phone] [facility] (15 min) Moderate 06/20/2018 Patient Education: Patient [...] of over-medication. 05/09/2018 Appointment: [facility] Jimenez [facility] [phone] [facility] (15 min) Moderate 05/09/2018 Patient Education: Patient Medication Summary Completed 05/09/2018 [facility]ment: [facility] Jimenez [facility] [phone] [facility] [place] (30 min) Complex 03/22/2018 Referral: External, Ordering Provider they will call him for appt Initiated Care Plan: Referral Order SNOMED-CT : [id number] Pending 03/13/2018 Visit Plan: Chronic Pain Syndrome [...] to urology 03/11/2018 App[facility]ment: [facility] Jimenez [facility] [phone] [facility] [place] (15 min) Moderate 03/11/2018 Patient [...] indicated. 01/18/2018 App[facility]ment: [facility] Jimenez [facility] [phone] [facility] (15 min) Moderate 01/18/2018 Patient Education: Patient [...] medications. 12/10/2017 Appointment: Alissa Jimenez WPtel: [phone] [facility] (30 min) Complex 12/10/2017 Patient Education: Patient Medication Summary Completed 12/10/2017 Appointment: Alissa Jimenez WPtel: [phone] [facility] (30 min) Complex 12/07/2017 App[facility] [phone] [facility] ([facility] min) Moderate 11/19/2017 Visit Plan: Chronic [...] current medications. 10/19/2017 App[facility]ment: [facility] [phone] [facility] ([facility] min) Complex 10/19/2017 Patient Education: Patient Medication Summary Completed [...] uncontrolled. 09/30/2017 Appointment: [facility] Jimenez [facility] [phone] [facility] New Patient 09/30/2017 Patient Education: Patient Medication [...] . 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 Anxiety - the patient has uncontrolled [...] alcohol because it will cause vomiting Call [phone] to get your thyroid ultrasound scheduled. . [...]
--- OUTSIDE RECORDS SUMMARY | 2018-11-24 04:54 | XMS REPORT | CCD ---
Author Author Alissa Jimenez Organization [facility] Address [address] [place] [address] Phone Care Team Providers Care Transfer Pumper Name Role Phone PP Unavailable CCM Unavailable Summary Purpose Interface Exchange Insurance Providers Payer name Policy type / Coverage type Covered constitution party ID Effective Begin Date Effective End Date [employer] - Medicaid [id number] 2017 Unknown Family history Father Diagnosis Age At Onset No Known Diseases N/A Mother Diagnosis Age At Onset No Known Diseases N/A Social History Social History Element Codes Description Effective Dates Marital status Unknown Single 09/30/2017 Employment Unknown Currently unemployed 09/30/[address]: 7388504 Former smoker 09/30/[address]: 230654259 Never drinks alcohol 09/30/2017 On Disability Unknown [...] Fill Instructions cyclobenzaprine 5 mg tablet RxNorm: 583826 1 Tablet(s) PO TID as needed muscle spasms 10/25/2018 No Stop Date Active Eliquis 5 mg tablet RxNorm: 2252967 1 Tablet(s) PO BID 2018 No Stop Date Active oxycodone 5 mg tablet RxNorm: 1436142 1 Tablet(s) PO QID as needed for pain 10/04/2018 11/02/2018 Active alprazolam 1 mg tablet RxNorm: 023160 1 Tablet(s) PO TID as needed anxiety 10/04/2018 11/02/2018 Active oxycodone 5 mg tablet RxNorm: 3555985 1 Tablet(s) PO QID as needed for pain 10/04/2018 10/03/2018 Inactive alprazolam 1 mg tablet RxNorm: 766537 1 Tablet(s) PO TID as needed anxiety 09/02/2018 10/01/2018 Inactive Eliquis 5 mg tablet RxNorm: 3416737 1 Tablet(s) PO BID 201710/03/2018 Inactive carvedilol 6.25 mg tablet RxNorm: 523797 1 Tablet(s) PO BID 10/18/2018 Inactive oxycodone 5 mg tablet RxNorm: 1560446 1 Tablet(s) PO QID as needed for pain 09/02/2018 10/01/2018 Inactive Flagyl 500 mg tablet RxNorm: 086865 1 Tablet(s) PO TID 201709/04/2018 Inactive metoprolol succinate ER 25 mg tablet,extended release 24 hr RxNorm: 569570 1/2 Tablet(s) PO daily 08/19/2018 10/19/2018 Inactive Levothroid 25 mcg tablet RxNorm: 910879 1 Tablet(s) PO daily No Stop Date Active oxycodone 5 mg tablet RxNorm: 8536050 1 Tablet(s) PO QID as needed for pain 08/02/2018 08/31/2018 Inactive alprazolam 1 mg tablet RxNorm: 233110 1 Tablet(s) PO TID as needed anxiety 08/02/2018 08/31/2018 Inactive alprazolam 1 mg tablet RxNorm: 510095 1 Tablet(s) PO TID as needed anxiety 07/05/2018 08/01/2018 Inactive oxycodone 5 mg tablet RxNorm: 8234594 1 Tablet(s) PO QID as needed for pain 07/05/2018 08/01/2018 Inactive Levothroid 25 mcg tablet RxNorm: 776986 1 Tablet(s) PO daily 08/01/2018 Inactive Kenalog 40 mg/mL suspension for injection RxNorm: 4927840 Milliliter(s) Inj 06/27/2018 06/27/2018 Inactive doxycycline hyclate 100 mg tablet RxNorm: 1921837 1 Tablet(s) PO BID 06/27/2018 07/06/2018 Inactive alprazolam 1 mg tablet RxNorm: 428040 1 Tablet(s) PO TID as needed anxiety 06/08/2018 07/04/2018 Inactive Cymbalta 30 mg capsule,delayed release RxNorm: 443541 1 Capsule(s) PO daily 06/07/2018 06/08/2018 Inactive Bystolic 5 mg tablet RxNorm: 641069 1 Tablet(s) PO daily 201706/09/2018 Inactive oxycodone 5 mg tablet RxNorm: 7437172 1 Tablet(s) PO QID as needed for pain 06/07/2018 07/04/2018 Inactive Cymbalta 30 mg capsule,delayed release RxNorm: 075097 1 Capsule(s) PO daily 05/09/2018 06/06/2018 Inactive alprazolam 1 mg tablet RxNorm: 531008 1 Tablet(s) PO TID as needed anxiety 04/05/2018 05/03/2018 Inactive oxycodone 5 mg tablet RxNorm: 8540295 1 Tablet(s) PO QID as needed for pain 04/05/2018 05/04/2018 Inactive cyclobenzaprine 5 mg tablet RxNorm: 810721 1 Tablet(s) PO TID as needed muscle spasms 03/18/2018 06/01/2018 Inactive mupirocin 2 % topical cream RxNorm: 694199 1 Application TOP BID 03/11/2018 06/08/2018 Inactive hydrocodone 5 mg-acetaminophen 325 mg tablet RxNorm: 535826 1 Tablet(s) PO TID as needed for pain 03/10/2018 04/04/2018 Inactive alprazolam 1 mg tablet RxNorm: 693069 1 Tablet(s) PO TID as needed anxiety 03/10/2018 04/04/2018 Inactive hydrocodone 5 mg-acetaminophen 325 mg tablet RxNorm: 000289 1 Tablet(s) PO TID as needed for pain 02/09/2018 03/09/2018 Inactive alprazolam 1 mg tablet RxNorm: 021248 1 Tablet(s) PO TID as needed anxiety 02/09/2018 03/09/2018 Inactive alprazolam 1 mg tablet RxNorm: 812792 1 Tablet(s) PO TID as needed anxiety 01/10/2018 02/08/2018 Inactive pantoprazole 40 mg tablet,delayed release RxNorm: 319772 1 Tablet(s) PO daily 12/27/2017 06/08/2018 Inactive pantoprazole 40 mg tablet,delayed release RxNorm: 053699 1 Tablet(s) PO daily 12/27/2017 12/26/2017 Inactive hydrocodone 5 mg-acetaminophen 325 mg tablet RxNorm: 816413 1 Tablet(s) PO TID as needed for pain 12/09/2017 01/07/2018 Inactive alprazolam 1 mg tablet RxNorm: 804535 1 Tablet(s) PO TID as needed anxiety 12/09/2017 01/07/2018 Inactive alprazolam 1 mg tablet RxNorm: 422586 1 Tablet(s) PO TID as needed anxiety 11/09/2017 12/08/2017 Inactive hydrocodone 5 mg-acetaminophen 325 mg tablet RxNorm: 216011 1 Tablet(s) PO TID as needed for pain 11/09/2017 12/08/2017 Inactive prednisone 20 mg tablet RxNorm: 779413 2 Tablet(s) PO daily 10/24/2017 Inactive hydrocodone 5 mg-acetaminophen 325 mg tablet RxNorm: 072396 1 Tablet(s) PO TID as needed for pain 10/14/2017 2017 Inactive Multaq 400 mg tablet RxNorm: 855569 1 Tablet(s) PO BID managed by cardiology No Start Date Active Levothroid 25 mcg tablet RxNorm: 481835 1 Tablet(s) PO daily No Start Date 07/04/2018 Inactive hydrocodone 5 mg-acetaminophen 325 mg tablet RxNorm: 650702 1 Tablet(s) PO TID as needed for pain No Start Date 10/13/2017 Inactive Eliquis 5 mg tablet RxNorm: 5789974 1 Tablet(s) PO BID No Start Date 09/01/2018 Inactive cyclobenzaprine 5 mg tablet RxNorm: 728439 1 Tablet(s) PO TID as needed muscle spasms No Start Date 03/17/2018 Inactive Epclusa 400 mg-100 mg tablet RxNorm: 2003795 1 Tablet(s) PO daily No Start Date 07/11/2018 Inactive carvedilol 6.25 mg tablet RxNorm: 883789 1 Tablet(s) PO BID No Start Date 09/01/2018 Inactive pantoprazole 40 mg tablet,delayed release RxNorm: 631265 1 Tablet(s) PO daily No Start Date 12/26/2017 Inactive alprazolam 1 mg tablet RxNorm: 398124 1 Tablet(s) PO TID as needed anxiety No Start Date 2017 Inactive flecainide 100 mg tablet RxNorm: 244916 1 Tablet(s) PO BID No Start Date 06/08/2018 Inactive metoprolol succinate ER 50 mg tablet,extended release 24 hr RxNorm: 605418 1/2 Tablet(s) PO daily managed by Dr Wilder No Start Date 06/08/2018 Inactive duloxetine 60 mg capsule,delayed release RxNorm: 570744 2 Capsule(s) PO daily No Start Date 11/30/2017 Inactive Medication Administered Medication Codes Instructions Start Date Status Kenalog 40 mg/mL suspension for injection RxNorm: 5660691 Milliliter 06/27/2018 No longer Active Immunizations Vaccine [...] gait 10/25/2018 None Full Exam - General 1995 Musculoskeletal gait and station Overall: normal station [...] normal 10/20/2018 None Full Exam - General 1994 Ears/Nose/Throat lips/teeth/gingiva Overall: benign lips 10/20/2018 None [...] Procedure Codes Date THER/PROPH/DIAG INJ SC/IM CPT-4: 24736 06/27/2018 TRIAMCINOLONE ACET INJ NOS CPT-4: J3301 06/27/2018 IMMUNIZATION ADMIN CPT -4: 17291 06/20/2018 FLU VACC PRSV FREE INC ANTIG CPT-4: 92974 06/20/2018 Vital Signs Date Vital 10/25/2018 Blood Pressure 1: 122/62 Code : 8480-6 BMI: 29.8 Code : 20760-4 Heart Rate 1 : 88 bpm Height: 6' SpO2: 98% Weight: 220 lbs 10/20/2018 Blood Pressure 1: 128/82 Code : 8480-6 BMI: 29.8 Code : 66187-5 Heart Rate 1 : 90 bpm Height: 6' SpO2: 96% Weight: 220 lbs 08/26/2018 Blood Pressure 1: 122/84 Code : 8480-6 BMI: 30.2 Code : 59621-8 Heart Rate 1 : 104 bpm Height: 6' SpO2: 97% Weight: 223 lbs 08/19/2018 Blood Pressure 1: 106/62 Code : 8480-6 BMI: 30.2 Code : 61015-7 Heart Rate 1 : 86 bpm Height: 6' SpO2: 94% Temperature: 36.5 (C) / 97.7 (F) Weight: 223 lbs 07/21/2018 Blood Pressure 1: 112/64 Code : 8480-6 BMI: 30.7 Code : 91965-3 Heart Rate 1 : 93 bpm Height: 6' SpO2: 96% Weight: 226 lbs 06/27/2018 Blood Pressure 1: 106/56 Code : 8480-6 Heart Rate 1: 78 bpm Height: SpO2: 96% Temperature: 36.7 (C) / 98.1 (F) Weight: 228 lbs 06/20/2018 Blood Pressure 1: 130/76 Code : 8480-6 BMI: 30.7 Code : 68464-2 Heart Rate 1 : 83 bpm Height: 6' SpO2: 96% Weight: 226 lbs 05/20/2018 Blood Pressure 1: 124/70 Code : 8480-6 Heart Rate 1: 88 bpm Height: 6' 05/09/2018 Blood Pressure 1: 126/82 Code : 8480-6 BMI: 30.7 Code : 88833-6 Heart Rate 1 : 102 bpm Height: 6' SpO2: 97% Weight: 226 lbs 03/11/2018 Blood Pressure 1: 128/72 Code : 8480-6 BMI: 30.7 Code : 17618-6 Heart Rate 1 : 90 bpm Height: 6' SpO2: 96% Weight: 226 lbs 01/18/2018 Blood Pressure 1: 138/70 Code : 8480-6 BMI: 30.5 Code : 98695-4 Heart Rate 1 : 80 bpm Height: 6' SpO2: 95% Weight: 225 lbs 12/10/2017 Blood Pressure 1: 140/64 Code : 8480-6 BMI: 30.7 Code : 56042-6 Heart Rate 1 : 71 bpm Height: 6' SpO2: 96% Weight: 226 lbs 11/09/2017 Blood Pressure 1: 102/68 Code : 8480-6 Heart Rate 1: 90 bpm Height: 6' SpO2: 97% Weight: 10/19/2017 Blood Pressure 1: 136/82 Code : 8480-6 Heart Rate 1: 98 bpm Height: SpO2: 96% Weight: 09/30/2017 Blood Pressure 1: 130/88 Code : 8480-6 BMI: 31.3 Code : 31892-9 Heart Rate 1 : 101 bpm Height: [...] data Encounters Encounter Performer Location Codes Date 57877 EST. PATIENT, LEVEL IV Diagnosis: Paroxysmal atrial fibrillation[ICD10: I48.0] Diagnosis: Chronic pain syndrome[ICD10: G89.4] Diagnosis: Essential (primary) hypertension[ICD10: I10] Alissa Cowan MD, [facility] CPT-4: 37796 10/25/2018 37242 EST. PATIENT, LEVEL III Diagnosis: Paroxysmal atrial fibrillation[ICD10: I48.0] Diagnosis: Chronic pain syndrome[ICD10: G89.4] Diagnosis: Essential (primary) hypertension[ICD10: I10] Alissa Cowan MD, [facility] CPT-4: 15617 10/20/2018 39337 EST. PATIENT, LEVEL III Diagnosis: Diverticulitis of large intestine without perforation or abscess without bleeding[ICD10: K57.32] Diagnosis: Essential (primary) hypertension[ICD10: I10] Diagnosis: Chronic pain syndrome[ICD10: G89.4] Diagnosis: Supraventricular tachycardia[ICD10: I47.1] Diagnosis: Other specified hypothyroidism[ICD10: E03.8] Alissa Cowan MD, [facility] CPT-4: 31293 08/26/2018 74567 EST. PATIENT, LEVEL III Diagnosis: Generalized anxiety disorder[ICD10: F41.1] Diagnosis: Major depressive disorder, single episode, moderate[ICD10: F32.1] Diagnosis: Chronic pain syndrome[ICD10: G89.4] Diagnosis: Essential (primary) hypertension[ICD10: I10] Diagnosis: Other specified hypothyroidism[ICD10: E03.8] Diagnosis: Dysphagia, oropharyngeal phase[ICD10: R13.12] Diagnosis: Supraventricular tachycardia[ICD10: I47.1] Alissa Cowan MD, [facility] CPT-4: 74424 08/19/2018 24461 EST. PATIENT, LEVEL IV Diagnosis: Generalized anxiety disorder[ICD10: F41.1] Diagnosis: Major depressive disorder, single episode, moderate[ICD10: F32.1] Diagnosis: Chronic pain syndrome[ICD10: G89.4] Diagnosis: Essential (primary) hypertension[ICD10: I10] Alissa Cowan MD, [facility] CPT-4: 30933 07/21/2018 70475 EST. PATIENT, LEVEL IV Diagnosis: Acute bronchitis due to other specified organisms[ICD10: J20.8] Alissa Cowan MD, [facility] CPT-4: 23293 06/27/2018 07933 EST. PATIENT, LEVEL III Diagnosis: Paroxysmal atrial fibrillation[ICD10: I48.0] Diagnosis: Chronic pain syndrome[ICD10: G89.4] Diagnosis: Essential (primary) hypertension[ICD10: I10] Diagnosis: Encounter for immunization[ICD10: Z23] Alissa Cowan MD, [facility] CPT-4: 92764 06/20/2018 ([id number]) Miscellaneous no charge Diagnosis: Generalized anxiety disorder[ICD10: F41.1] Alissa Cowan MD, [facility] CPT-4: 83395 05/20/2018 29970 EST. PATIENT, LEVEL IV Diagnosis: Generalized anxiety disorder[ICD10: F41.1] Diagnosis: Major depressive disorder, single episode, moderate[ICD10: F32.1] Diagnosis: Other hydrocele[ICD10: N43.2] Diagnosis: Chronic pain syndrome[ICD10: G89.4] Diagnosis: Essential (primary) hypertension[ICD10: I10] Alissa Cowan MD, [facility] CPT-4: 12511 05/09/2018 39239 EST. PATIENT, LEVEL IV Diagnosis: Chronic pain syndrome[ICD10: G89.4] Diagnosis: Generalized anxiety disorder[ICD10: F41.1] Diagnosis: Major depressive disorder, single episode, moderate[ICD10: F32.1] Diagnosis: Other hydrocele[ICD10: N43.2] Alissa Cowan MD, [facility] CPT-4 : 19507 03/11/2018 44603 EST. PATIENT, LEVEL IV Diagnosis: Chronic pain syndrome[ICD10: G89.4] Diagnosis: Low back pain[ICD10: M54.5] Diagnosis: Generalized anxiety disorder[ICD10: F41.1] Diagnosis: Major depressive disorder, single episode, moderate[ICD10: F32.1] Diagnosis: Left lower quadrant pain[ICD10: R10.32] Alissa Cowan MD, [facility] CPT-4: 74303 01/18/2018 76498 EST. PATIENT, LEVEL IV Diagnosis: Chronic pain syndrome[ICD10: G89.4] Diagnosis: Low back pain[ICD10: M54.5] Diagnosis: Generalized anxiety disorder[ICD10: F41.1] Diagnosis: Major depressive disorder, single episode, moderate[ICD10: F32.1] Alissa Cowan MD, [facility] CPT-4: 72972 12/10/2017 93723 EST. PATIENT, LEVEL IV Diagnosis: Chronic pain syndrome[ICD10: G89.4] Diagnosis: Low back pain[ICD10: M54.5] Diagnosis: Generalized anxiety disorder[ICD10: F41.1] Diagnosis: Major depressive disorder, single episode, moderate[ICD10: F32.1] Alissa Cowan MD, [facility] CPT-4: 80750 11/09/2017 02612 EST. PATIENT, LEVEL IV Diagnosis: Chronic pain syndrome[ICD10: G89.4] Diagnosis: Low back pain[ICD10: M54.5] Diagnosis: Generalized anxiety disorder[ICD10: F41.1] Diagnosis: Major depressive disorder, single episode, moderate[ICD10: F32.1] [facility] CPT-4: 60070 10/19/2017 OFFICE VISIT, NEW - LEVEL 4 Diagnosis: Chronic pain syndrome[ICD10: G89.4] Diagnosis: Low back pain[ICD10: M54.5] Diagnosis: Headache[ICD10: R51] Diagnosis: Generalized anxiety disorder[ICD10: F41.1] Diagnosis: Major depressive disorder, single episode, moderate[ICD10: F32.1] Diagnosis: Gastro-esophageal reflux disease without esophagitis[ICD10: K21.9] Diagnosis: Paroxysmal atrial fibrillation[ICD10: I48.0] [facility] CPT-4: 67005 09/30/2017 Plan of Care Planned Activity Notes Codes Status Date Visit Plan: Recurrent A.fib/SVT - discussed with pt's environmental engineering manager - verified medications and pt is to have a monitor placed - pt is to notify clinic with any changes in the current treatment plan. 10/25/2018 Appointment: Al[facility] Jimenez [facility]el[id number] ([facility] min[facility] Complex 10/25/2018 Patient Education: Patient Medication Summary Completed 10/25/2018 Appointment: Alissa Jimenez WPtel: [facility] (15 min) Moderate 10/21/2018 Visit Plan: Chronic [...] condition. 10/20/2018 Appointment: Alissa Jimenez WPtel: [phone] [facility] (30 min) Complex 10/20/2018 Patient Education: Patient [...] control. 08/26/2018 App[facility]ment: [phone] (15 min) Moderate 08/26/2018 Patient Education: Patient [...] [place] 08/19/2018 Appointment: [facility] Jimenez [phone] [facility] [place] (30 min) Complex 08/19/2018 Patient Education: [...] pain medication. 07/21/2018 Appointment: Alissa Jimenez WPtel: [facility] [place] (15 min) Moderate 07/21/2018 Patient Education: Patient Medication Summary Completed 07/21/2018 Patient Education: Depression Completed 07/21/2018 Visit Plan: Bronchitis - acute case of bronchitis identified. Pt has been given antibiotics, steroids as appropriate, and pt has been instructed to call if symptoms are not improved, or if symptoms acutely worsen. 06/27/2018 Appointment: [facility] Jimenez [phone] [facility] [place] (15 min) Moderate 06/27/2018 Patient Education: Patient [...] over- medication. 06/20/2018 Appointment: Alissa Jimenez WPtel: [facility] (15 min) Moderate 06/20/2018 Patient Education: Patient [...] of over-medication. 05/09/2018 Appointment: [facility] Jimenez [phone] [facility] [place] (15 min) Moderate 05/09/2018 Patient Education: Patient Medication Summary Completed 05/09/2018 Appointment: Alissa Jimenez WPtel: [facility] [place] (30 min) Complex 03/22/2018 Referral: External, Ordering Provider they will call him for appt Initiated Care Plan: Referral Order SNOMED-CT : [id number] Pending 03/13/2018 Visit Plan: Chronic Pain Syndrome [...] to urology 03/11/2018 Appointment: Alissa Jimenez WPtel: [facility] [place] (15 min) Moderate 03/11/2018 Patient Education: [...] as indicated. 01/18/2018 Appointment: [facility]enez [phone] [facility] [place] (15 min) Moderate 01/18/2018 Patient Education: [...] medications. 12/10/2017 Appointment: Alissa Jimenez WPtel: [phone] [facility] (30 min) Complex 12/10/2017 Patient Education: Patient Medication Summary Completed 12/10/2017 Appointment: Alissa Jimenez WPtel: [phone] [facility] [place] (30 min) Complex 12/07/2017 Appointment: Alissa Jimenez WPtel: [phone] [facility] [place] (15 min) Moderate 11/19/2017 Visit Plan: [...] medications. 10/19/2017 Appointment: Alissa Jimenez WPtel: [phone] [facility] [place] (30 min) Complex 10/19/2017 Patient Education: Patient [...] becoming uncontrolled. 09/30/2017 Appointment: Alissa Jimenez WPtel: [address] [place], [place] [address] New Patient 09/30/2017 Patient Education: Patient Medication [...] . Recurrent A.fib/SVT - discussed with pt's environmental engineering manager - verified medications and pt is [...] Referral to urology - Todd Rodrigez fax [phone] attention caleb FRITZ in [place] . Anxiety - the patient has uncontrolled [...] alcohol because it will cause vomiting Call [phone] to get your thyroid ultrasound scheduled. . [...]
--- OUTSIDE RECORDS SUMMARY | 2018-11-24 04:55 | XMS REPORT | CCD ---
Author Author Alissa Jimenez Organization [facility] Address [address] [place] [address] Phone Care Team Providers Care Network Operations Manager Name Role Phone PP Unavailable CCM Unavailable Summary Purpose Interface Exchange Insurance Providers Payer name Policy type / Coverage type Covered constitution party ID Effective Begin Date Effective End Date [employer] - Medicaid [id number] 2017 Unknown Family history Father Diagnosis Age At Onset No Known Diseases N/A Mother Diagnosis Age At Onset No Known Diseases N/A Social History Social History Element Codes Description Effective Dates Marital status Unknown Single 09/30/2017 Employment Unknown Currently unemployed 09/30/[address]: 8267424 Former smoker 09/30/[address]: 957709077 Never drinks alcohol 09/30/2017 On Disability Unknown [...] Fill Instructions cyclobenzaprine 5 mg tablet RxNorm: 906467 1 Tablet(s) PO TID as needed muscle spasms 10/25/2018 No Stop Date Active Eliquis 5 mg tablet RxNorm: 7451835 1 Tablet(s) PO BID 2018 No Stop Date Active oxycodone 5 mg tablet RxNorm: 1438623 1 Tablet(s) PO QID as needed for pain 10/04/2018 11/02/2018 Active alprazolam 1 mg tablet RxNorm: 989442 1 Tablet(s) PO TID as needed anxiety 10/04/2018 11/02/2018 Active oxycodone 5 mg tablet RxNorm: 0145377 1 Tablet(s) PO QID as needed for pain 10/04/2018 10/03/2018 Inactive alprazolam 1 mg tablet RxNorm: 770793 1 Tablet(s) PO TID as needed anxiety 09/02/2018 10/01/2018 Inactive Eliquis 5 mg tablet RxNorm: 7200127 1 Tablet(s) PO BID 201710/03/2018 Inactive carvedilol 6.25 mg tablet RxNorm: 159405 1 Tablet(s) PO BID 10/18/2018 Inactive oxycodone 5 mg tablet RxNorm: 9915351 1 Tablet(s) PO QID as needed for pain 09/02/2018 10/01/2018 Inactive Flagyl 500 mg tablet RxNorm: 540800 1 Tablet(s) PO TID 201709/04/2018 Inactive metoprolol succinate ER 25 mg tablet,extended release 24 hr RxNorm: 374211 1/2 Tablet(s) PO daily 08/19/2018 10/19/2018 Inactive Levothroid 25 mcg tablet RxNorm: 678545 1 Tablet(s) PO daily No Stop Date Active oxycodone 5 mg tablet RxNorm: 6673640 1 Tablet(s) PO QID as needed for pain 08/02/2018 08/31/2018 Inactive alprazolam 1 mg tablet RxNorm: 047185 1 Tablet(s) PO TID as needed anxiety 08/02/2018 08/31/2018 Inactive alprazolam 1 mg tablet RxNorm: 810233 1 Tablet(s) PO TID as needed anxiety 07/05/2018 08/01/2018 Inactive oxycodone 5 mg tablet RxNorm: 5706302 1 Tablet(s) PO QID as needed for pain 07/05/2018 08/01/2018 Inactive Levothroid 25 mcg tablet RxNorm: 086248 1 Tablet(s) PO daily 08/01/2018 Inactive Kenalog 40 mg/mL suspension for injection RxNorm: 2525082 Milliliter(s) Inj 06/27/2018 06/27/2018 Inactive doxycycline hyclate 100 mg tablet RxNorm: 3740062 1 Tablet(s) PO BID 06/27/2018 07/06/2018 Inactive alprazolam 1 mg tablet RxNorm: 449419 1 Tablet(s) PO TID as needed anxiety 06/08/2018 07/04/2018 Inactive Cymbalta 30 mg capsule,delayed release RxNorm: 737730 1 Capsule(s) PO daily 06/07/2018 06/08/2018 Inactive Bystolic 5 mg tablet RxNorm: 504287 1 Tablet(s) PO daily 201706/09/2018 Inactive oxycodone 5 mg tablet RxNorm: 9796531 1 Tablet(s) PO QID as needed for pain 06/07/2018 07/04/2018 Inactive Cymbalta 30 mg capsule,delayed release RxNorm: 378136 1 Capsule(s) PO daily 05/09/2018 06/06/2018 Inactive alprazolam 1 mg tablet RxNorm: 261854 1 Tablet(s) PO TID as needed anxiety 04/05/2018 05/03/2018 Inactive oxycodone 5 mg tablet RxNorm: 4589775 1 Tablet(s) PO QID as needed for pain 04/05/2018 05/04/2018 Inactive cyclobenzaprine 5 mg tablet RxNorm: 640081 1 Tablet(s) PO TID as needed muscle spasms 03/18/2018 06/01/2018 Inactive mupirocin 2 % topical cream RxNorm: 654745 1 Application TOP BID 03/11/2018 06/08/2018 Inactive hydrocodone 5 mg-acetaminophen 325 mg tablet RxNorm: 801923 1 Tablet(s) PO TID as needed for pain 03/10/2018 04/04/2018 Inactive alprazolam 1 mg tablet RxNorm: 139621 1 Tablet(s) PO TID as needed anxiety 03/10/2018 04/04/2018 Inactive hydrocodone 5 mg-acetaminophen 325 mg tablet RxNorm: 326201 1 Tablet(s) PO TID as needed for pain 02/09/2018 03/09/2018 Inactive alprazolam 1 mg tablet RxNorm: 725496 1 Tablet(s) PO TID as needed anxiety 02/09/2018 03/09/2018 Inactive alprazolam 1 mg tablet RxNorm: 682081 1 Tablet(s) PO TID as needed anxiety 01/10/2018 02/08/2018 Inactive pantoprazole 40 mg tablet,delayed release RxNorm: 107187 1 Tablet(s) PO daily 12/27/2017 06/08/2018 Inactive pantoprazole 40 mg tablet,delayed release RxNorm: 928453 1 Tablet(s) PO daily 12/27/2017 12/26/2017 Inactive hydrocodone 5 mg-acetaminophen 325 mg tablet RxNorm: 856144 1 Tablet(s) PO TID as needed for pain 12/09/2017 01/07/2018 Inactive alprazolam 1 mg tablet RxNorm: 302372 1 Tablet(s) PO TID as needed anxiety 12/09/2017 01/07/2018 Inactive alprazolam 1 mg tablet RxNorm: 484303 1 Tablet(s) PO TID as needed anxiety 11/09/2017 12/08/2017 Inactive hydrocodone 5 mg-acetaminophen 325 mg tablet RxNorm: 996127 1 Tablet(s) PO TID as needed for pain 11/09/2017 12/08/2017 Inactive prednisone 20 mg tablet RxNorm: 978364 2 Tablet(s) PO daily 10/24/2017 Inactive hydrocodone 5 mg-acetaminophen 325 mg tablet RxNorm: 386302 1 Tablet(s) PO TID as needed for pain 10/14/2017 2017 Inactive Multaq 400 mg tablet RxNorm: 146867 1 Tablet(s) PO BID managed by cardiology No Start Date Active Levothroid 25 mcg tablet RxNorm: 184590 1 Tablet(s) PO daily No Start Date 07/04/2018 Inactive hydrocodone 5 mg-acetaminophen 325 mg tablet RxNorm: 419906 1 Tablet(s) PO TID as needed for pain No Start Date 10/13/2017 Inactive Eliquis 5 mg tablet RxNorm: 4354334 1 Tablet(s) PO BID No Start Date 09/01/2018 Inactive cyclobenzaprine 5 mg tablet RxNorm: 893937 1 Tablet(s) PO TID as needed muscle spasms No Start Date 03/17/2018 Inactive Epclusa 400 mg-100 mg tablet RxNorm: 0026822 1 Tablet(s) PO daily No Start Date 07/11/2018 Inactive carvedilol 6.25 mg tablet RxNorm: 693146 1 Tablet(s) PO BID No Start Date 09/01/2018 Inactive pantoprazole 40 mg tablet,delayed release RxNorm: 371703 1 Tablet(s) PO daily No Start Date 12/26/2017 Inactive alprazolam 1 mg tablet RxNorm: 696518 1 Tablet(s) PO TID as needed anxiety No Start Date 2017 Inactive flecainide 100 mg tablet RxNorm: 633558 1 Tablet(s) PO BID No Start Date 06/08/2018 Inactive metoprolol succinate ER 50 mg tablet,extended release 24 hr RxNorm: 370858 1/2 Tablet(s) PO daily managed by Dr Wilder No Start Date 06/08/2018 Inactive duloxetine 60 mg capsule,delayed release RxNorm: 157928 2 Capsule(s) PO daily No Start Date 11/30/2017 Inactive Medication Administered Medication Codes Instructions Start Date Status Kenalog 40 mg/mL suspension for injection RxNorm: 8147047 Milliliter 06/27/2018 No longer Active Immunizations Vaccine [...] Procedure Codes Date THER/PROPH/DIAG INJ SC/IM CPT-4: 33775 06/27/2018 TRIAMCINOLONE ACET INJ NOS CPT-4: J3301 06/27/2018 IMMUNIZATION ADMIN CPT -4: 37832 06/20/2018 FLU VACC PRSV FREE INC ANTIG CPT-4: 93014 06/20/2018 Vital Signs Date Vital 10/25/2018 Blood Pressure 1: 122/62 Code : 8480-6 BMI: 29.8 Code : 03767-6 Heart Rate 1 : 88 bpm Height: 6' SpO2: 98% Weight: 220 lbs 10/20/2018 Blood Pressure 1: 128/82 Code : 8480-6 BMI: 29.8 Code : 31454-6 Heart Rate 1 : 90 bpm Height: 6' SpO2: 96% Weight: 220 lbs 08/26/2018 Blood Pressure 1: 122/84 Code : 8480-6 BMI: 30.2 Code : 94573-6 Heart Rate 1 : 104 bpm Height: 6' SpO2: 97% Weight: 223 lbs 08/19/2018 Blood Pressure 1: 106/62 Code : 8480-6 BMI: 30.2 Code : 36600-0 Heart Rate 1 : 86 bpm Height: 6' SpO2: 94% Temperature: 36.5 (C) / 97.7 (F) Weight: 223 lbs 07/21/2018 Blood Pressure 1: 112/64 Code : 8480-6 BMI: 30.7 Code : 87862-9 Heart Rate 1 : 93 bpm Height: 6' SpO2: 96% Weight: 226 lbs 06/27/2018 Blood Pressure 1: 106/56 Code : 8480-6 Heart Rate 1: 78 bpm Height: SpO2: 96% Temperature: 36.7 (C) / 98.1 (F) Weight: 228 lbs 06/20/2018 Blood Pressure 1: 130/76 Code : 8480-6 BMI: 30.7 Code : 23808-4 Heart Rate 1 : 83 bpm Height: 6' SpO2: 96% Weight: 226 lbs 05/20/2018 Blood Pressure 1: 124/70 Code : 8480-6 Heart Rate 1: 88 bpm Height: 6' 05/09/2018 Blood Pressure 1: 126/82 Code : 8480-6 BMI: 30.7 Code : 28489-3 Heart Rate 1 : 102 bpm Height: 6' SpO2: 97% Weight: 226 lbs 03/11/2018 Blood Pressure 1: 128/72 Code : 8480-6 BMI: 30.7 Code : 39147-6 Heart Rate 1 : 90 bpm Height: 6' SpO2: 96% Weight: 226 lbs 01/18/2018 Blood Pressure 1: 138/70 Code : 8480-6 BMI: 30.5 Code : 11470-9 Heart Rate 1 : 80 bpm Height: 6' SpO2: 95% Weight: 225 lbs 12/10/2017 Blood Pressure 1: 140/64 Code : 8480-6 BMI: 30.7 Code : 67985-7 Heart Rate 1 : 71 bpm Height: 6' SpO2: 96% Weight: 226 lbs 11/09/2017 Blood Pressure 1: 102/68 Code : 8480-6 Heart Rate 1: 90 bpm Height: 6' SpO2: 97% Weight: 10/19/2017 Blood Pressure 1: 136/82 Code : 8480-6 Heart Rate 1: 98 bpm Height: SpO2: 96% Weight: 09/30/2017 Blood Pressure 1: 130/88 Code : 8480-6 BMI: 31.3 Code : 26094-4 Heart Rate 1 : 101 bpm Height: [...] data Encounters Encounter Performer Location Codes Date 58357 EST. PATIENT, LEVEL IV Diagnosis: Paroxysmal atrial fibrillation[ICD10: I48.0] Diagnosis: Chronic pain syndrome[ICD10: G89.4] Diagnosis: Essential (primary) hypertension[ICD10: I10] Alissa Cowan MD, [facility] CPT-4: 76439 10/25/2018 81995 EST. PATIENT, LEVEL III Diagnosis: Paroxysmal atrial fibrillation[ICD10: I48.0] Diagnosis: Chronic pain syndrome[ICD10: G89.4] Diagnosis: Essential (primary) hypertension[ICD10: I10] Alissa Cowan MD, [facility] CPT-4: 81105 10/20/2018 13517 EST. PATIENT, LEVEL III Diagnosis: Diverticulitis of large intestine without perforation or abscess without bleeding[ICD10: K57.32] Diagnosis: Essential (primary) hypertension[ICD10: I10] Diagnosis: Chronic pain syndrome[ICD10: G89.4] Diagnosis: Supraventricular tachycardia[ICD10: I47.1] Diagnosis: Other specified hypothyroidism[ICD10: E03.8] Alissa Cowan MD, [facility] CPT-4: 50894 08/26/2018 71759 EST. PATIENT, LEVEL III Diagnosis: Generalized anxiety disorder[ICD10: F41.1] Diagnosis: Major depressive disorder, single episode, moderate[ICD10: F32.1] Diagnosis: Chronic pain syndrome[ICD10: G89.4] Diagnosis: Essential (primary) hypertension[ICD10: I10] Diagnosis: Other specified hypothyroidism[ICD10: E03.8] Diagnosis: Dysphagia, oropharyngeal phase[ICD10: R13.12] Diagnosis: Supraventricular tachycardia[ICD10: I47.1] Alissa Cowan MD, [facility] CPT-4: 26498 08/19/2018 68431 EST. PATIENT, LEVEL IV Diagnosis: Generalized anxiety disorder[ICD10: F41.1] Diagnosis: Major depressive disorder, single episode, moderate[ICD10: F32.1] Diagnosis: Chronic pain syndrome[ICD10: G89.4] Diagnosis: Essential (primary) hypertension[ICD10: I10] Alissa Cowan MD, [facility] CPT-4: 37605 07/21/2018 23946 EST. PATIENT, LEVEL IV Diagnosis: Acute bronchitis due to other specified organisms[ICD10: J20.8] Alissa Cowan MD, [facility] CPT-4: 40914 06/27/2018 13812 EST. PATIENT, LEVEL III Diagnosis: Paroxysmal atrial fibrillation[ICD10: I48.0] Diagnosis: Chronic pain syndrome[ICD10: G89.4] Diagnosis: Essential (primary) hypertension[ICD10: I10] Diagnosis: Encounter for immunization[ICD10: Z23] Alissa Cowan MD, [facility] CPT-4: 84179 06/20/2018 (24721) Miscellaneous no charge Diagnosis: Generalized anxiety disorder[ICD10: F41.1] Alissa Cowan MD, [facility] CPT-4: 23947 05/20/2018 55114 EST. PATIENT, LEVEL IV Diagnosis: Generalized anxiety disorder[ICD10: F41.1] Diagnosis: Major depressive disorder, single episode, moderate[ICD10: F32.1] Diagnosis: Other hydrocele[ICD10: N43.2] Diagnosis: Chronic pain syndrome[ICD10: G89.4] Diagnosis: Essential (primary) hypertension[ICD10: I10] Alissa Cowan MD, [facility] CPT-4: 17490 05/09/2018 29783 EST. PATIENT, LEVEL IV Diagnosis: Chronic pain syndrome[ICD10: G89.4] Diagnosis: Generalized anxiety disorder[ICD10: F41.1] Diagnosis: Major depressive disorder, single episode, moderate[ICD10: F32.1] Diagnosis: Other hydrocele[ICD10: N43.2] Alissa Cowan MD, [facility] CPT-4 : 69814 03/11/2018 47549 EST. PATIENT, LEVEL IV Diagnosis: Chronic pain syndrome[ICD10: G89.4] Diagnosis: Low back pain[ICD10: M54.5] Diagnosis: Generalized anxiety disorder[ICD10: F41.1] Diagnosis: Major depressive disorder, single episode, moderate[ICD10: F32.1] Diagnosis: Left lower quadrant pain[ICD10: R10.32] Alissa Cowan MD, [facility] CPT-4: 65625 01/18/2018 42088 EST. PATIENT, LEVEL IV Diagnosis: Chronic pain syndrome[ICD10: G89.4] Diagnosis: Low back pain[ICD10: M54.5] Diagnosis: Generalized anxiety disorder[ICD10: F41.1] Diagnosis: Major depressive disorder, single episode, moderate[ICD10: F32.1] Alissa Cowan MD, [facility] CPT-4: 37090 12/10/2017 91241 EST. PATIENT, LEVEL IV Diagnosis: Chronic pain syndrome[ICD10: G89.4] Diagnosis: Low back pain[ICD10: M54.5] Diagnosis: Generalized anxiety disorder[ICD10: F41.1] Diagnosis: Major depressive disorder, single episode, moderate[ICD10: F32.1] Alissa Cowan MD, [facility] CPT-4: 06203 11/09/2017 92818 EST. PATIENT, LEVEL IV Diagnosis: Chronic pain syndrome[ICD10: G89.4] Diagnosis: Low back pain[ICD10: M54.5] Diagnosis: Generalized anxiety disorder[ICD10: F41.1] Diagnosis: Major depressive disorder, single episode, moderate[ICD10: F32.1] [facility] CPT-4: 62852 10/19/2017 OFFICE VISIT, NEW - LEVEL 4 Diagnosis: Chronic pain syndrome[ICD10: G89.4] Diagnosis: Low back pain[ICD10: M54.5] Diagnosis: Headache[ICD10: R51] Diagnosis: Generalized anxiety disorder[ICD10: F41.1] Diagnosis: Major depressive disorder, single episode, moderate[ICD10: F32.1] Diagnosis: Gastro-esophageal reflux disease without esophagitis[ICD10: K21.9] Diagnosis: Paroxysmal atrial fibrillation[ICD10: I48.0] [facility] CPT-4: 16879 09/30/2017 Plan of Care Planned Activity Notes Codes Status Date Visit Plan: Recurrent A.fib/SVT - discussed with pt's roustabout - verified medications and pt is to have a monitor placed - pt is to notify clinic with any changes in the current treatment plan. 10/25/2018 Appointment: [facility] ([facility] Complex 10/25/2018 Patient Education: Patient Medication Summary Completed 10/25/2018 Appointment: Al[facility] Jimenez [facility] (15 min) Moderate 10/21/2018 Visit Plan: [...] condition. 10/20/2018 Appointment: Alissa Jimenez WPtel: [phone] [facility] (30 min) Complex 10/20/2018 Patient Education: Patient [...] control. 08/26/2018 App[facility]ment: [facility] [phone] [facility] (15 min) Moderate 08/26/2018 Patient Education: Patient [...] [place] 08/19/2018 Appointment: [facility] [phone] [facility] [place] (30 min) Complex 08/19/2018 Patient [...] pain medication. 07/21/2018 Appointment: Alissa Jimenez WPtel: [facility] [place] (15 min) Moderate 07/21/2018 Patient Education: Patient Medication Summary Completed 07/21/2018 Patient Education: Depression Completed 07/21/2018 Visit Plan: Bronchitis - acute case of bronchitis identified. Pt has been given antibiotics, steroids as appropriate, and pt has been instructed to call if symptoms are not improved, or if symptoms acutely worsen. 06/27/2018 Appointment: [facility] [phone] [facility] [place] (15 min) Moderate 06/27/2018 Patient Education: [...] over- medication. 06/20/2018 Appointment: Alissa Jimenez [facility]Ptel[facility] (15 min) Moderate 06/20/2018 Patient Education: Patient [...] over-medication. 05/09/2018 Appointment: [facility] [phone] [facility] [place] (15 min) Moderate 05/09/2018 Patient Education: Patient Medication Summary Completed 05/09/2018 Appointment: Alissa Jimenez [facility]Ptel: [facility] [place] (30 min) Complex 03/22/2018 Referral: External, Ordering Provider they will call him for appt Initiated Care Plan: Referral Order SNOMED-CT : [id number] Pending 03/13/2018 Visit Plan: Chronic Pain Syndrome [...] to urology 03/11/2018 Appointment: Alissa Jimenez [facility]Ptel: [facility] [place] (15 min) Moderate 03/11/2018 Patient Education: [...] as indicated. 01/18/2018 Appointment: [facility] [phone] [facility] [place] (15 min) Moderate 01/18/2018 Patient Education: [...] medications. 12/10/2017 Appointment: Alissa Jimenez WPtel: [phone] [facility] (30 min) Complex 12/10/2017 Patient Education: Patient Medication Summary Completed 12/10/2017 Appointment: Alissa Jimenez WPtel: [phone] [facility] [place] (30 min) Complex 12/07/2017 Appointment: Alissa Jimenez WPtel: [phone] [facility] [place] (15 min) Moderate 11/19/2017 Visit Plan: [...] medications. 10/19/2017 Appointment: Alissa Jimenez WPtel: [phone] [facility] [place] (30 min) Complex 10/19/2017 Patient Education: [...] becoming uncontrolled. 09/30/2017 Appointment: Alissa Jimenez WPtel: [address] [place], [place] [address] New Patient 09/30/2017 Patient Education: Patient Medication [...] . Recurrent A.fib/SVT - discussed with pt's roustabout - verified medications and pt is to [...] Referral to urology - Todd Rodrigez fax [phone] attention caleb FRITZ in [place] . Anxiety - the patient has uncontrolled [...] alcohol because it will cause vomiting Call [phone] to get your thyroid ultrasound scheduled. . [...]
--- OUTSIDE RECORDS SUMMARY | 2018-11-24 04:56 | XMS REPORT | CCD ---
Author Author Alissa Jimenez Organization [facility] Address [address] [place] [address] Phone Care Team Providers Care Milieu Coordinator Name Role Phone PP Unavailable CCM Unavailable Summary Purpose Interface Exchange Insurance Providers Payer name Policy type / Coverage type Covered constitution party ID Effective Begin Date Effective End Date [employer] - Medicaid [id number] 2017 Unknown Family history Father Diagnosis Age At Onset No Known Diseases N/A Mother Diagnosis Age At Onset No Known Diseases N/A Social History Social History Element Codes Description Effective Dates Marital status Unknown Single 09/30/2017 Employment Unknown Currently unemployed 09/30/[address]: 9791308 Former smoker 09/30/[address]: 611591504 Never drinks alcohol 09/30/2017 On Disability Unknown [...] Fill Instructions cyclobenzaprine 5 mg tablet RxNorm: 706507 1 Tablet(s) PO TID as needed muscle spasms 10/25/2018 No Stop Date Active Eliquis 5 mg tablet RxNorm: 8643691 1 Tablet(s) PO BID 2018 No Stop Date Active oxycodone 5 mg tablet RxNorm: 1923361 1 Tablet(s) PO QID as needed for pain 10/04/2018 11/02/2018 Active alprazolam 1 mg tablet RxNorm: 004303 1 Tablet(s) PO TID as needed anxiety 10/04/2018 11/02/2018 Active oxycodone 5 mg tablet RxNorm: 3595508 1 Tablet(s) PO QID as needed for pain 10/04/2018 10/03/2018 Inactive alprazolam 1 mg tablet RxNorm: 556811 1 Tablet(s) PO TID as needed anxiety 09/02/2018 10/01/2018 Inactive Eliquis 5 mg tablet RxNorm: 3871440 1 Tablet(s) PO BID 201710/03/2018 Inactive carvedilol 6.25 mg tablet RxNorm: 821097 1 Tablet(s) PO BID 10/18/2018 Inactive oxycodone 5 mg tablet RxNorm: 7735011 1 Tablet(s) PO QID as needed for pain 09/02/2018 10/01/2018 Inactive Flagyl 500 mg tablet RxNorm: 591776 1 Tablet(s) PO TID 201709/04/2018 Inactive metoprolol succinate ER 25 mg tablet,extended release 24 hr RxNorm: 523671 1/2 Tablet(s) PO daily 08/19/2018 10/19/2018 Inactive Levothroid 25 mcg tablet RxNorm: 768169 1 Tablet(s) PO daily No Stop Date Active oxycodone 5 mg tablet RxNorm: 4867234 1 Tablet(s) PO QID as needed for pain 08/02/2018 08/31/2018 Inactive alprazolam 1 mg tablet RxNorm: 456119 1 Tablet(s) PO TID as needed anxiety 08/02/2018 08/31/2018 Inactive alprazolam 1 mg tablet RxNorm: 216663 1 Tablet(s) PO TID as needed anxiety 07/05/2018 08/01/2018 Inactive oxycodone 5 mg tablet RxNorm: 9427583 1 Tablet(s) PO QID as needed for pain 07/05/2018 08/01/2018 Inactive Levothroid 25 mcg tablet RxNorm: 995407 1 Tablet(s) PO daily 08/01/2018 Inactive Kenalog 40 mg/mL suspension for injection RxNorm: 1794456 Milliliter(s) Inj 06/27/2018 06/27/2018 Inactive doxycycline hyclate 100 mg tablet RxNorm: 5656830 1 Tablet(s) PO BID 06/27/2018 07/06/2018 Inactive alprazolam 1 mg tablet RxNorm: 685061 1 Tablet(s) PO TID as needed anxiety 06/08/2018 07/04/2018 Inactive Cymbalta 30 mg capsule,delayed release RxNorm: 727947 1 Capsule(s) PO daily 06/07/2018 06/08/2018 Inactive Bystolic 5 mg tablet RxNorm: 349401 1 Tablet(s) PO daily 201706/09/2018 Inactive oxycodone 5 mg tablet RxNorm: 6138538 1 Tablet(s) PO QID as needed for pain 06/07/2018 07/04/2018 Inactive Cymbalta 30 mg capsule,delayed release RxNorm: 555895 1 Capsule(s) PO daily 05/09/2018 06/06/2018 Inactive alprazolam 1 mg tablet RxNorm: 975878 1 Tablet(s) PO TID as needed anxiety 04/05/2018 05/03/2018 Inactive oxycodone 5 mg tablet RxNorm: 5220857 1 Tablet(s) PO QID as needed for pain 04/05/2018 05/04/2018 Inactive cyclobenzaprine 5 mg tablet RxNorm: 871690 1 Tablet(s) PO TID as needed muscle spasms 03/18/2018 06/01/2018 Inactive mupirocin 2 % topical cream RxNorm: 196610 1 Application TOP BID 03/11/2018 06/08/2018 Inactive hydrocodone 5 mg-acetaminophen 325 mg tablet RxNorm: 904122 1 Tablet(s) PO TID as needed for pain 03/10/2018 04/04/2018 Inactive alprazolam 1 mg tablet RxNorm: 306302 1 Tablet(s) PO TID as needed anxiety 03/10/2018 04/04/2018 Inactive hydrocodone 5 mg-acetaminophen 325 mg tablet RxNorm: 041831 1 Tablet(s) PO TID as needed for pain 02/09/2018 03/09/2018 Inactive alprazolam 1 mg tablet RxNorm: 318770 1 Tablet(s) PO TID as needed anxiety 02/09/2018 03/09/2018 Inactive alprazolam 1 mg tablet RxNorm: 498494 1 Tablet(s) PO TID as needed anxiety 01/10/2018 02/08/2018 Inactive pantoprazole 40 mg tablet,delayed release RxNorm: 588669 1 Tablet(s) PO daily 12/27/2017 06/08/2018 Inactive pantoprazole 40 mg tablet,delayed release RxNorm: 346186 1 Tablet(s) PO daily 12/27/2017 12/26/2017 Inactive hydrocodone 5 mg-acetaminophen 325 mg tablet RxNorm: 276603 1 Tablet(s) PO TID as needed for pain 12/09/2017 01/07/2018 Inactive alprazolam 1 mg tablet RxNorm: 600464 1 Tablet(s) PO TID as needed anxiety 12/09/2017 01/07/2018 Inactive alprazolam 1 mg tablet RxNorm: 180754 1 Tablet(s) PO TID as needed anxiety 11/09/2017 12/08/2017 Inactive hydrocodone 5 mg-acetaminophen 325 mg tablet RxNorm: 233989 1 Tablet(s) PO TID as needed for pain 11/09/2017 12/08/2017 Inactive prednisone 20 mg tablet RxNorm: 669589 2 Tablet(s) PO daily 10/24/2017 Inactive hydrocodone 5 mg-acetaminophen 325 mg tablet RxNorm: 710237 1 Tablet(s) PO TID as needed for pain 10/14/2017 2017 Inactive Multaq 400 mg tablet RxNorm: 766304 1 Tablet(s) PO BID managed by cardiology No Start Date Active Levothroid 25 mcg tablet RxNorm: 175278 1 Tablet(s) PO daily No Start Date 07/04/2018 Inactive hydrocodone 5 mg-acetaminophen 325 mg tablet RxNorm: 526448 1 Tablet(s) PO TID as needed for pain No Start Date 10/13/2017 Inactive Eliquis 5 mg tablet RxNorm: 8475860 1 Tablet(s) PO BID No Start Date 09/01/2018 Inactive cyclobenzaprine 5 mg tablet RxNorm: 427397 1 Tablet(s) PO TID as needed muscle spasms No Start Date 03/17/2018 Inactive Epclusa 400 mg-100 mg tablet RxNorm: 9555968 1 Tablet(s) PO daily No Start Date 07/11/2018 Inactive carvedilol 6.25 mg tablet RxNorm: 232025 1 Tablet(s) PO BID No Start Date 09/01/2018 Inactive pantoprazole 40 mg tablet,delayed release RxNorm: 081744 1 Tablet(s) PO daily No Start Date 12/26/2017 Inactive alprazolam 1 mg tablet RxNorm: 932026 1 Tablet(s) PO TID as needed anxiety No Start Date 2017 Inactive flecainide 100 mg tablet RxNorm: 929567 1 Tablet(s) PO BID No Start Date 06/08/2018 Inactive metoprolol succinate ER 50 mg tablet,extended release 24 hr RxNorm: 175243 1/2 Tablet(s) PO daily managed by Dr Wilder No Start Date 06/08/2018 Inactive duloxetine 60 mg capsule,delayed release RxNorm: 139698 2 Capsule(s) PO daily No Start Date 11/30/2017 Inactive Medication Administered Medication Codes Instructions Start Date Status Kenalog 40 mg/mL suspension for injection RxNorm: 1013955 Milliliter 06/27/2018 No longer Active Immunizations Vaccine [...] Procedure Codes Date THER/PROPH/DIAG INJ SC/IM CPT-4: 37794 06/27/2018 TRIAMCINOLONE ACET INJ NOS CPT-4: J3301 06/27/2018 IMMUNIZATION ADMIN CPT -4: 55622 06/20/2018 FLU VACC PRSV FREE INC ANTIG CPT-4: 13364 06/20/2018 Vital Signs Date Vital 10/25/2018 Blood Pressure 1: 122/62 Code : 8480-6 BMI: 29.8 Code : 59474-7 Heart Rate 1 : 88 bpm Height: 6' SpO2: 98% Weight: 220 lbs 10/20/2018 Blood Pressure 1: 128/82 Code : 8480-6 BMI: 29.8 Code : 85800-5 Heart Rate 1 : 90 bpm Height: 6' SpO2: 96% Weight: 220 lbs 08/26/2018 Blood Pressure 1: 122/84 Code : 8480-6 BMI: 30.2 Code : 43704-2 Heart Rate 1 : 104 bpm Height: 6' SpO2: 97% Weight: 223 lbs 08/19/2018 Blood Pressure 1: 106/62 Code : 8480-6 BMI: 30.2 Code : 92023-8 Heart Rate 1 : 86 bpm Height: 6' SpO2: 94% Temperature: 36.5 (C) / 97.7 (F) Weight: 223 lbs 07/21/2018 Blood Pressure 1: 112/64 Code : 8480-6 BMI: 30.7 Code : 07635-9 Heart Rate 1 : 93 bpm Height: 6' SpO2: 96% Weight: 226 lbs 06/27/2018 Blood Pressure 1: 106/56 Code : 8480-6 Heart Rate 1: 78 bpm Height: SpO2: 96% Temperature: 36.7 (C) / 98.1 (F) Weight: 228 lbs 06/20/2018 Blood Pressure 1: 130/76 Code : 8480-6 BMI: 30.7 Code : 06070-4 Heart Rate 1 : 83 bpm Height: 6' SpO2: 96% Weight: 226 lbs 05/20/2018 Blood Pressure 1: 124/70 Code : 8480-6 Heart Rate 1: 88 bpm Height: 6' 05/09/2018 Blood Pressure 1: 126/82 Code : 8480-6 BMI: 30.7 Code : 96478-2 Heart Rate 1 : 102 bpm Height: 6' SpO2: 97% Weight: 226 lbs 03/11/2018 Blood Pressure 1: 128/72 Code : 8480-6 BMI: 30.7 Code : 71411-8 Heart Rate 1 : 90 bpm Height: 6' SpO2: 96% Weight: 226 lbs 01/18/2018 Blood Pressure 1: 138/70 Code : 8480-6 BMI: 30.5 Code : 51745-0 Heart Rate 1 : 80 bpm Height: 6' SpO2: 95% Weight: 225 lbs 12/10/2017 Blood Pressure 1: 140/64 Code : 8480-6 BMI: 30.7 Code : 37896-3 Heart Rate 1 : 71 bpm Height: 6' SpO2: 96% Weight: 226 lbs 11/09/2017 Blood Pressure 1: 102/68 Code : 8480-6 Heart Rate 1: 90 bpm Height: 6' SpO2: 97% Weight: 10/19/2017 Blood Pressure 1: 136/82 Code : 8480-6 Heart Rate 1: 98 bpm Height: SpO2: 96% Weight: 09/30/2017 Blood Pressure 1: 130/88 Code : 8480-6 BMI: 31.3 Code : 26117-7 Heart Rate 1 : 101 bpm Height: [...] data Encounters Encounter Performer Location Codes Date 77891 EST. PATIENT, LEVEL IV Diagnosis: Paroxysmal atrial fibrillation[ICD10: I48.0] Diagnosis: Chronic pain syndrome[ICD10: G89.4] Diagnosis: Essential (primary) hypertension[ICD10: I10] lAissa Cowan MD, [facility] CPT-4: 24753 10/25/2018 63489 EST. PATIENT, LEVEL III Diagnosis: Paroxysmal atrial fibrillation[ICD10: I48.0] Diagnosis: Chronic pain syndrome[ICD10: G89.4] Diagnosis: Essential (primary) hypertension[ICD10: I10] Alissa Cowan MD, [facility] CPT-4: 57304 10/20/2018 85908 EST. PATIENT, LEVEL III Diagnosis: Diverticulitis of large intestine without perforation or abscess without bleeding[ICD10: K57.32] Diagnosis: Essential (primary) hypertension[ICD10: I10] Diagnosis: Chronic pain syndrome[ICD10: G89.4] Diagnosis: Supraventricular tachycardia[ICD10: I47.1] Diagnosis: Other specified hypothyroidism[ICD10: E03.8] Alissa Cowan MD, [facility] CPT-4: 55072 08/26/2018 46111 EST. PATIENT, LEVEL III Diagnosis: Generalized anxiety disorder[ICD10: F41.1] Diagnosis: Major depressive disorder, single episode, moderate[ICD10: F32.1] Diagnosis: Chronic pain syndrome[ICD10: G89.4] Diagnosis: Essential (primary) hypertension[ICD10: I10] Diagnosis: Other specified hypothyroidism[ICD10: E03.8] Diagnosis: Dysphagia, oropharyngeal phase[ICD10: R13.12] Diagnosis: Supraventricular tachycardia[ICD10: I47.1] Alissa Cowan MD, [facility] CPT-4: 89239 08/19/2018 85256 EST. PATIENT, LEVEL IV Diagnosis: Generalized anxiety disorder[ICD10: F41.1] Diagnosis: Major depressive disorder, single episode, moderate[ICD10: F32.1] Diagnosis: Chronic pain syndrome[ICD10: G89.4] Diagnosis: Essential (primary) hypertension[ICD10: I10] Alissa Cowan MD, [facility] CPT-4: 88356 07/21/2018 27826 EST. PATIENT, LEVEL IV Diagnosis: Acute bronchitis due to other specified organisms[ICD10: J20.8] Alissa Cowan MD, [facility] CPT-4: 68875 06/27/2018 34978 EST. PATIENT, LEVEL III Diagnosis: Paroxysmal atrial fibrillation[ICD10: I48.0] Diagnosis: Chronic pain syndrome[ICD10: G89.4] Diagnosis: Essential (primary) hypertension[ICD10: I10] Diagnosis: Encounter for immunization[ICD10: Z23] Alissa Cowan MD, [facility] CPT-4: 52477 06/20/2018 (30898) Miscellaneous no charge Diagnosis: Generalized anxiety disorder[ICD10: F41.1] Alissa Cowan MD, [facility] CPT-4: 16475 05/20/2018 42994 EST. PATIENT, LEVEL IV Diagnosis: Generalized anxiety disorder[ICD10: F41.1] Diagnosis: Major depressive disorder, single episode, moderate[ICD10: F32.1] Diagnosis: Other hydrocele[ICD10: N43.2] Diagnosis: Chronic pain syndrome[ICD10: G89.4] Diagnosis: Essential (primary) hypertension[ICD10: I10] Alissa Cowan MD, [facility] CPT-4: 52915 05/09/2018 97264 EST. PATIENT, LEVEL IV Diagnosis: Chronic pain syndrome[ICD10: G89.4] Diagnosis: Generalized anxiety disorder[ICD10: F41.1] Diagnosis: Major depressive disorder, single episode, moderate[ICD10: F32.1] Diagnosis: Other hydrocele[ICD10: N43.2] Alissa Cowan MD, [facility] CPT-4 : 99501 03/11/2018 80495 EST. PATIENT, LEVEL IV Diagnosis: Chronic pain syndrome[ICD10: G89.4] Diagnosis: Low back pain[ICD10: M54.5] Diagnosis: Generalized anxiety disorder[ICD10: F41.1] Diagnosis: Major depressive disorder, single episode, moderate[ICD10: F32.1] Diagnosis: Left lower quadrant pain[ICD10: R10.32] Alissa Cowan MD, [facility] CPT-4: 33170 01/18/2018 05201 EST. PATIENT, LEVEL IV Diagnosis: Chronic pain syndrome[ICD10: G89.4] Diagnosis: Low back pain[ICD10: M54.5] Diagnosis: Generalized anxiety disorder[ICD10: F41.1] Diagnosis: Major depressive disorder, single episode, moderate[ICD10: F32.1] Alissa Cowan MD, [facility] CPT-4: 35739 12/10/2017 32519 EST. PATIENT, LEVEL IV Diagnosis: Chronic pain syndrome[ICD10: G89.4] Diagnosis: Low back pain[ICD10: M54.5] Diagnosis: Generalized anxiety disorder[ICD10: F41.1] Diagnosis: Major depressive disorder, single episode, moderate[ICD10: F32.1] Alissa Cowan MD, [facility] CPT-4: 21032 11/09/2017 60522 EST. PATIENT, LEVEL IV Diagnosis: Chronic pain syndrome[ICD10: G89.4] Diagnosis: Low back pain[ICD10: M54.5] Diagnosis: Generalized anxiety disorder[ICD10: F41.1] Diagnosis: Major depressive disorder, single episode, moderate[ICD10: F32.1] [facility] CPT-4: 80316 10/19/2017 OFFICE VISIT, NEW - LEVEL 4 Diagnosis: Chronic pain syndrome[ICD10: G89.4] Diagnosis: Low back pain[ICD10: M54.5] Diagnosis: Headache[ICD10: R51] Diagnosis: Generalized anxiety disorder[ICD10: F41.1] Diagnosis: Major depressive disorder, single episode, moderate[ICD10: F32.1] Diagnosis: Gastro-esophageal reflux disease without esophagitis[ICD10: K21.9] Diagnosis: Paroxysmal atrial fibrillation[ICD10: I48.0] [facility] CPT-4: 68160 09/30/2017 Plan of Care Planned Activity Notes Codes Status Date Visit Plan: Recurrent A.fib/SVT - discussed with pt's equipment technician - verified medications and pt is to have a monitor placed - pt is to notify clinic with any changes in the current treatment plan. 10/25/2018 Patient Education: Patient Medication Summary Completed 10/25/2018 Appointment: Alissa Jimenez WPtel: [address] [place], [place] [id number] (15 min) Moderate 10/21/2018 Visit Plan: Chronic [...] condition. 10/20/2018 [facility] [phone] [facility] [facility] Complex 10/20/2018 Patient [...] control. 08/26/2018 [facility] [phone] [facility] ([facility] min) Moderate 08/26/2018 Patient Education: [...] [place] 08/19/2018 [facility]ment: [facility] [phone] [facility] ([facility] min) Complex 08/19/2018 Patient Education: Patient [...] medication. 07/21/2018 [facility] [phone] [facility] (15 min) Moderate 07/21/2018 Patient Education: Patient Medication Summary Completed 07/21/2018 Patient Education: Depression Completed 07/21/2018 Visit Plan: Bronchitis - acute case of bronchitis identified. Pt has been given antibiotics, steroids as appropriate, and pt has been instructed to call if symptoms are not improved, or if symptoms acutely worsen. 06/27/2018 App[facility]ment: [facility] [phone] [facility] [place] (15 min) Moderate 06/27/2018 Patient [...] medication. 06/20/2018 [facility]ment: [facility] [phone] [facility] (15 min) Moderate 06/20/2018 Patient Education: [...] of over-medication. 05/09/2018 App[facility]ment: [facility] [phone] [facility] [place] (15 min) Moderate 05/09/2018 Patient Education: Patient Medication Summary Completed 05/09/2018 [facility]ment: [facility] [phone] [facility] [place] (30 min) Complex 03/22/2018 Referral: External, Ordering Provider they will call him for appt Initiated Care Plan: Referral Order SNOMED-CT : [id number] Pending 03/13/2018 Visit Plan: Chronic Pain Syndrome [...] Appointment: Alissa Jimenez WPtel: [phone] [facility] [place] (15 min) Moderate 03/11/2018 Patient Education: [...] indicated. 01/18/2018 App[facility]ment: [facility] [phone] [facility] [place] (15 min) Moderate 01/18/2018 Patient [...] current medications. 12/10/2017 Appointment: Alissa Jimenez WPtel: [phone] [facility] (30 min) Complex 12/10/2017 Patient Education: Patient Medication Summary Completed 12/10/2017 Appointment: Alissa Jimenez WPtel: [phone] [facility] [place] (30 min) Complex 12/07/2017 Appointment: Alissa Jimenez WPtel: [phone] [facility] [place] (15 min) Moderate 11/19/2017 Visit Plan: [...] current medications. 10/19/2017 Appointment: Alissa Jimenez WPtel: [phone] [facility] [place] (30 min) Complex 10/19/2017 Patient Education: [...] becoming uncontrolled. 09/30/2017 Appointment: Alissa Jimenez WPtel: [address] [place], [place] [address] New Patient 09/30/2017 Patient Education: Patient Medication [...] . Recurrent A.fib/SVT - discussed with pt's equipment technician - verified medications and pt is [...] Referral to urology - Todd Rodrigez fax [phone] attention caleb FRITZ in [place] . Anxiety - the patient has uncontrolled [...] alcohol because it will cause vomiting Call [phone] to get your thyroid ultrasound scheduled. . [...]
--- OUTSIDE RECORDS SUMMARY | 2018-11-24 04:58 | XMS REPORT | CCD ---
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 Name Role Phone PP Unavailable CCM Unavailable Summary Purpose Interface Exchange Insurance Providers Payer name Policy type / Coverage type Covered democrat ID Effective Begin Date Effective End Date [employer] - Medicaid [id number] 2017 Unknown Family history Father Diagnosis Age At Onset No Known Diseases N/A Mother Diagnosis Age At Onset No Known Diseases N/A Social History Social History Element Codes Description Effective Dates Marital status Unknown Single 09/30/2017 Employment Unknown Currently unemployed 09/30/[address]: 1442627 Former smoker 09/30/[address]: 186246379 Never drinks alcohol 09/30/2017 On Disability Unknown [...] Fill Instructions cyclobenzaprine 5 mg tablet RxNorm: 351967 1 Tablet(s) PO TID as needed muscle spasms 10/25/2018 No Stop Date Active Eliquis 5 mg tablet RxNorm: 7023073 1 Tablet(s) PO BID 2018 No Stop Date Active oxycodone 5 mg tablet RxNorm: 0113127 1 Tablet(s) PO QID as needed for pain 10/04/2018 11/02/2018 Active alprazolam 1 mg tablet RxNorm: 587850 1 Tablet(s) PO TID as needed anxiety 10/04/2018 11/02/2018 Active oxycodone 5 mg tablet RxNorm: 8509270 1 Tablet(s) PO QID as needed for pain 10/04/2018 10/03/2018 Inactive carvedilol 6.25 mg tablet RxNorm: 079465 1 Tablet(s) PO BID No Stop Date Active alprazolam 1 mg tablet RxNorm: 594146 1 Tablet(s) PO TID as needed anxiety 09/02/2018 10/01/2018 Inactive Eliquis 5 mg tablet RxNorm: 2191569 1 Tablet(s) PO BID 201710/03/2018 Inactive oxycodone 5 mg tablet RxNorm: 9181358 1 Tablet(s) PO QID as needed for pain 09/02/2018 10/01/2018 Inactive Flagyl 500 mg tablet RxNorm: 731209 1 Tablet(s) PO TID 201709/04/2018 Inactive metoprolol succinate ER 25 mg tablet,extended release 24 hr RxNorm: 995962 1/2 Tablet(s) PO daily 08/19/2018 09/17/2018 Inactive Levothroid 25 mcg tablet RxNorm: 829971 1 Tablet(s) PO daily No Stop Date Active oxycodone 5 mg tablet RxNorm: 9324927 1 Tablet(s) PO QID as needed for pain 08/02/2018 08/31/2018 Inactive alprazolam 1 mg tablet RxNorm: 116382 1 Tablet(s) PO TID as needed anxiety 08/02/2018 08/31/2018 Inactive alprazolam 1 mg tablet RxNorm: 843125 1 Tablet(s) PO TID as needed anxiety 07/05/2018 08/01/2018 Inactive oxycodone 5 mg tablet RxNorm: 1348248 1 Tablet(s) PO QID as needed for pain 07/05/2018 08/01/2018 Inactive Levothroid 25 mcg tablet RxNorm: 519701 1 Tablet(s) PO daily 08/01/2018 Inactive Kenalog 40 mg/mL suspension for injection RxNorm: 8988032 Milliliter(s) Inj 06/27/2018 06/27/2018 Inactive doxycycline hyclate 100 mg tablet RxNorm: 9744756 1 Tablet(s) PO BID 06/27/2018 07/06/2018 Inactive alprazolam 1 mg tablet RxNorm: 206540 1 Tablet(s) PO TID as needed anxiety 06/08/2018 07/04/2018 Inactive Cymbalta 30 mg capsule,delayed release RxNorm: 967629 1 Capsule(s) PO daily 06/07/2018 06/08/2018 Inactive Bystolic 5 mg tablet RxNorm: 202364 1 Tablet(s) PO daily 201706/09/2018 Inactive oxycodone 5 mg tablet RxNorm: 1048136 1 Tablet(s) PO QID as needed for pain 06/07/2018 07/04/2018 Inactive Cymbalta 30 mg capsule,delayed release RxNorm: 601536 1 Capsule(s) PO daily 05/09/2018 06/06/2018 Inactive alprazolam 1 mg tablet RxNorm: 430603 1 Tablet(s) PO TID as needed anxiety 04/05/2018 05/03/2018 Inactive oxycodone 5 mg tablet RxNorm: 1274121 1 Tablet(s) PO QID as needed for pain 04/05/2018 05/04/2018 Inactive cyclobenzaprine 5 mg tablet RxNorm: 262510 1 Tablet(s) PO TID as needed muscle spasms 03/18/2018 06/01/2018 Inactive mupirocin 2 % topical cream RxNorm: 123776 1 Application TOP BID 03/11/2018 06/08/2018 Inactive hydrocodone 5 mg-acetaminophen 325 mg tablet RxNorm: 740979 1 Tablet(s) PO TID as needed for pain 03/10/2018 04/04/2018 Inactive alprazolam 1 mg tablet RxNorm: 929162 1 Tablet(s) PO TID as needed anxiety 03/10/2018 04/04/2018 Inactive hydrocodone 5 mg-acetaminophen 325 mg tablet RxNorm: 839395 1 Tablet(s) PO TID as needed for pain 02/09/2018 03/09/2018 Inactive alprazolam 1 mg tablet RxNorm: 646782 1 Tablet(s) PO TID as needed anxiety 02/09/2018 03/09/2018 Inactive alprazolam 1 mg tablet RxNorm: 939554 1 Tablet(s) PO TID as needed anxiety 01/10/2018 02/08/2018 Inactive pantoprazole 40 mg tablet,delayed release RxNorm: 003465 1 Tablet(s) PO daily 12/27/2017 06/08/2018 Inactive pantoprazole 40 mg tablet,delayed release RxNorm: 751728 1 Tablet(s) PO daily 12/27/2017 12/26/2017 Inactive hydrocodone 5 mg-acetaminophen 325 mg tablet RxNorm: 128993 1 Tablet(s) PO TID as needed for pain 12/09/2017 01/07/2018 Inactive alprazolam 1 mg tablet RxNorm: 260006 1 Tablet(s) PO TID as needed anxiety 12/09/2017 01/07/2018 Inactive alprazolam 1 mg tablet RxNorm: 509007 1 Tablet(s) PO TID as needed anxiety 11/09/2017 12/08/2017 Inactive hydrocodone 5 mg-acetaminophen 325 mg tablet RxNorm: 702897 1 Tablet(s) PO TID as needed for pain 11/09/2017 12/08/2017 Inactive prednisone 20 mg tablet RxNorm: 765021 2 Tablet(s) PO daily 10/24/2017 Inactive hydrocodone 5 mg-acetaminophen 325 mg tablet RxNorm: 969539 1 Tablet(s) PO TID as needed for pain 10/14/2017 2017 Inactive Levothroid 25 mcg tablet RxNorm: 203697 1 Tablet(s) PO daily No Start Date 07/04/2018 Inactive hydrocodone 5 mg-acetaminophen 325 mg tablet RxNorm: 909317 1 Tablet(s) PO TID as needed for pain No Start Date 10/13/2017 Inactive Eliquis 5 mg tablet RxNorm: 4345942 1 Tablet(s) PO BID No Start Date 09/01/2018 Inactive cyclobenzaprine 5 mg tablet RxNorm: 323605 1 Tablet(s) PO TID as needed muscle spasms No Start Date 03/17/2018 Inactive Epclusa 400 mg-100 mg tablet RxNorm: 1883296 1 Tablet(s) PO daily No Start Date 07/11/2018 Inactive carvedilol 6.25 mg tablet RxNorm: 632201 1 Tablet(s) PO BID No Start Date 09/01/2018 Inactive pantoprazole 40 mg tablet,delayed release RxNorm: 054261 1 Tablet(s) PO daily No Start Date 12/26/2017 Inactive alprazolam 1 mg tablet RxNorm: 507531 1 Tablet(s) PO TID as needed anxiety No Start Date 2017 Inactive flecainide 100 mg tablet RxNorm: 340741 1 Tablet(s) PO BID No Start Date 06/08/2018 Inactive metoprolol succinate ER 50 mg tablet,extended release 24 hr RxNorm: 316283 1/2 Tablet(s) PO daily managed by Dr Wilder No Start Date 06/08/2018 Inactive duloxetine 60 mg capsule,delayed release RxNorm: 777378 2 Capsule(s) PO daily No Start Date 11/30/2017 Inactive Medication Administered Medication Codes Instructions Start Date Status Kenalog 40 mg/mL suspension for injection RxNorm: 9605974 Milliliter 06/27/2018 No longer Active Immunizations Vaccine [...] Effective Dates Notes Hospital Follow Up 10/25/2018 abdominal pain 08/26/2018 Hospital Follow Up 08/19/2018 [...] depression 10/25/2018 Psychiatric No suicidality 10/25/2018 Constitutional recent illness 08/26/2018 Constitutional No chills [...] spine 10/19/2017 None Full Exam - General 1995 Musculoskeletal [...] clear 09/30/2017 None Full Exam - General 1995 Respiratory respiratory effort/rhythm Overall: no retractions 09/30/2017 [...] Procedure Codes Date THER/PROPH/DIAG INJ SC/IM CPT-4: 74122 06/27/2018 TRIAMCINOLONE ACET INJ NOS CPT-4: J3301 06/27/2018 IMMUNIZATION ADMIN CPT -4: 16805 06/20/2018 FLU VACC PRSV FREE INC ANTIG CPT-4: 27845 06/20/2018 Vital Signs Date Vital 10/25/2018 Blood Pressure 1: 122/62 Code : 8480-6 BMI: 29.8 Code : 81686-7 Heart Rate 1 : 88 bpm Height: 6' SpO2: 98% Weight: 220 lbs 08/26/2018 Blood Pressure 1: 122/84 Code : 8480-6 BMI: 30.2 Code : 88366-2 Heart Rate 1 : 104 bpm Height: 6' SpO2: 97% Weight: 223 lbs 08/19/2018 Blood Pressure 1: 106/62 Code : 8480-6 BMI: 30.2 Code : 95369-8 Heart Rate 1 : 86 bpm Height: 6' SpO2: 94% Temperature: 36.5 (C) / 97.7 (F) Weight: 223 lbs 07/21/2018 Blood Pressure 1: 112/64 Code : 8480-6 BMI: 30.7 Code : 56573-0 Heart Rate 1 : 93 bpm Height: 6' SpO2: 96% Weight: 226 lbs 06/27/2018 Blood Pressure 1: 106/56 Code : 8480-6 Heart Rate 1: 78 bpm Height: SpO2: 96% Temperature: 36.7 (C) / 98.1 (F) Weight: 228 lbs 06/20/2018 Blood Pressure 1: 130/76 Code : 8480-6 BMI: 30.7 Code : 79661-0 Heart Rate 1 : 83 bpm Height: 6' SpO2: 96% Weight: 226 lbs 05/20/2018 Blood Pressure 1: 124/70 Code : 8480-6 Heart Rate 1: 88 bpm Height: 6' 05/09/2018 Blood Pressure 1: 126/82 Code : 8480-6 BMI: 30.7 Code : 00679-6 Heart Rate 1 : 102 bpm Height: 6' SpO2: 97% Weight: 226 lbs 03/11/2018 Blood Pressure 1: 128/72 Code : 8480-6 BMI: 30.7 Code : 27482-3 Heart Rate 1 : 90 bpm Height: 6' SpO2: 96% Weight: 226 lbs 01/18/2018 Blood Pressure 1: 138/70 Code : 8480-6 BMI: 30.5 Code : 00976-8 Heart Rate 1 : 80 bpm Height: 6' SpO2: 95% Weight: 225 lbs 12/10/2017 Blood Pressure 1: 140/64 Code : 8480-6 BMI: 30.7 Code : 94087-5 Heart Rate 1 : 71 bpm Height: 6' SpO2: 96% Weight: 226 lbs 11/09/2017 Blood Pressure 1: 102/68 Code : 8480-6 Heart Rate 1: 90 bpm Height: 6' SpO2: 97% Weight: 10/19/2017 Blood Pressure 1: 136/82 Code : 8480-6 Heart Rate 1: 98 bpm Height: SpO2: 96% Weight: 09/30/2017 Blood Pressure 1: 130/88 Code : 8480-6 BMI: 31.3 Code : 99436-4 Heart Rate 1 : 101 bpm Height: [...] None Pertinent Findings Denies fever 10/25/2018 None Location in the [facility] 08/26/2018 None [...] Essential (primary) hypertension[ICD10: I10] Alissa Cowan MD, [facility] CPT-4: 31406 10/25/2018 07689 EST. PATIENT, LEVEL III Diagnosis: Diverticulitis of large intestine without perforation or abscess without bleeding[ICD10: K57.32] Diagnosis: Essential (primary) hypertension[ICD10: I10] Diagnosis: Chronic pain syndrome[ICD10: G89.4] Diagnosis: Supraventricular tachycardia[ICD10: I47.1] Diagnosis: Other specified hypothyroidism[ICD10: E03.8] Alissa Cowan MD, [facility] CPT-4: 41568 08/26/2018 05777 EST. PATIENT, LEVEL III Diagnosis: Generalized anxiety disorder[ICD10: F41.1] Diagnosis: Major depressive disorder, single episode, moderate[ICD10: F32.1] Diagnosis: Chronic pain syndrome[ICD10: G89.4] Diagnosis: Essential (primary) hypertension[ICD10: I10] Diagnosis: Other specified hypothyroidism[ICD10: E03.8] Diagnosis: Dysphagia, oropharyngeal phase[ICD10: R13.12] Diagnosis: Supraventricular tachycardia[ICD10: I47.1] Alissa Cowan MD, [facility] CPT-4: 96261 08/19/2018 65107 EST. PATIENT, LEVEL IV Diagnosis: Generalized anxiety disorder[ICD10: F41.1] Diagnosis: Major depressive disorder, single episode, moderate[ICD10: F32.1] Diagnosis: Chronic pain syndrome[ICD10: G89.4] Diagnosis: Essential (primary) hypertension[ICD10: I10] [facility] CPT-4: 24041 07/21/2018 04136 EST. PATIENT, LEVEL IV Diagnosis: Acute bronchitis due to other specified organisms[ICD10: J20.8] Alissa Cowan MD, [facility] CPT-4: 23301 06/27/2018 04356 EST. PATIENT, LEVEL III Diagnosis: Paroxysmal atrial fibrillation[ICD10: I48.0] Diagnosis: Chronic pain syndrome[ICD10: G89.4] Diagnosis: Essential (primary) hypertension[ICD10: I10] Diagnosis: Encounter for immunization[ICD10: Z23] Alissa Cowan MD, [facility] CPT-4: 45450 06/20/2018 (14704) Miscellaneous no charge Diagnosis: Generalized anxiety disorder[ICD10: F41.1] Alissa Cowan MD, [facility] CPT-4: 29008 05/20/2018 12813 EST. PATIENT, LEVEL IV Diagnosis: Generalized anxiety disorder[ICD10: F41.1] Diagnosis: Major depressive disorder, single episode, moderate[ICD10: F32.1] Diagnosis: Other hydrocele[ICD10: N43.2] Diagnosis: Chronic pain syndrome[ICD10: G89.4] Diagnosis: Essential (primary) hypertension[ICD10: I10] Alissa Cowan MD, [facility] CPT-4: 64641 05/09/2018 85378 EST. PATIENT, LEVEL IV Diagnosis: Chronic pain syndrome[ICD10: G89.4] Diagnosis: Generalized anxiety disorder[ICD10: F41.1] Diagnosis: Major depressive disorder, single episode, moderate[ICD10: F32.1] Diagnosis: Other hydrocele[ICD10: N43.2] Alissa Cowan MD, [facility] CPT-4 : 51519 03/11/2018 94967 EST. PATIENT, LEVEL IV Diagnosis: Chronic pain syndrome[ICD10: G89.4] Diagnosis: Low back pain[ICD10: M54.5] Diagnosis: Generalized anxiety disorder[ICD10: F41.1] Diagnosis: Major depressive disorder, single episode, moderate[ICD10: F32.1] Diagnosis: Left lower quadrant pain[ICD10: R10.32] Alissa Cowan MD, [facility] CPT-4: 88304 01/18/2018 60852 EST. PATIENT, LEVEL IV Diagnosis: Chronic pain syndrome[ICD10: G89.4] Diagnosis: Low back pain[ICD10: M54.5] Diagnosis: Generalized anxiety disorder[ICD10: F41.1] Diagnosis: Major depressive disorder, single episode, moderate[ICD10: F32.1] Alissa Cowan MD, [facility] CPT-4: 33678 12/10/2017 87849 EST. PATIENT, LEVEL IV Diagnosis: Chronic pain syndrome[ICD10: G89.4] Diagnosis: Low back pain[ICD10: M54.5] Diagnosis: Generalized anxiety disorder[ICD10: F41.1] Diagnosis: Major depressive disorder, single episode, moderate[ICD10: F32.1] Alissa Cowan MD, [facility] CPT-4: 64889 11/09/2017 93849 EST. PATIENT, LEVEL IV Diagnosis: Chronic pain syndrome[ICD10: G89.4] Diagnosis: Low back pain[ICD10: M54.5] Diagnosis: Generalized anxiety disorder[ICD10: F41.1] Diagnosis: Major depressive disorder, single episode, moderate[ICD10: F32.1] Alissa Cowan MD, [facility] CPT-4: 43155 10/19/2017 OFFICE VISIT, NEW - LEVEL 4 Diagnosis: Chronic pain syndrome[ICD10: G89.4] Diagnosis: Low back pain[ICD10: M54.5] Diagnosis: Headache[ICD10: R51] Diagnosis: Generalized anxiety disorder[ICD10: F41.1] Diagnosis: Major depressive disorder, single episode, moderate[ICD10: F32.1] Diagnosis: Gastro-esophageal reflux disease without esophagitis[ICD10: K21.9] Diagnosis: Paroxysmal atrial fibrillation[ICD10: I48.0] [facility] CPT-4: 42857 09/30/2017 Plan of Care Planned Activity Notes Codes Status Date Visit Plan: Recurrent A.fib/SVT - discussed with pt's fiber artist - verified medications and pt is to have a monitor placed - pt is to notify clinic with any changes in the current treatment plan. 10/25/2018 Patient Education: Patient Medication Summary Completed 10/25/2018 Appointment: Al[facility] Jimenez [facility] [place] (15 min) Moderate 10/21/2018 Appointment: Alissa Jimenez WPtel: [facility] (30 min) Complex 10/20/2018 Visit Plan: Diverticulitis - rx for [...] Jimenez [facility]Ptel[facility] [address] [facility] (15 min) Moderate 08/26/2018 Patient [...] thyroid US 08/19/2018 Appointment: Alissa Jimenez [facility]el[facility] [address] [facility] (30 min) Complex 08/19/2018 Patient [...] medication. 07/21/2018 Appointment: [facility] Jimenez [facility]el[facility] [address] [facility] (15 min) Moderate 07/21/2018 Patient Education: Patient Medication Summary Completed 07/21/2018 Patient Education: Depression Completed 07/21/2018 Visit Plan: Bronchitis - acute case of bronchitis identified. Pt has been given antibiotics, steroids as appropriate, and pt has been instructed to call if symptoms are not improved, or if symptoms acutely worsen. 06/27/2018 Appointment: Alissa Jimenez [facility]Ptel[facility] [phone] [facility] (15 min) Moderate 06/27/2018 Patient Education: Patient [...] medication. 06/20/2018 Appointment: [facility] Jimenez [facility]Ptel[facility] [phone] [facility] [place] (15 min) Moderate 06/20/2018 Patient Education: Patient [facility] [place] (15 min) Moderate 05/09/2018 Patient Education: Patient Medication Summary Completed 05/09/2018 Appointment: Alissa Jimenez [facility]Ptel[facility] [phone] [facility] [place] (30 min) Complex 03/22/2018 Referral: External, Ordering Provider they will call him for appt Initiated Care Plan: Referral Order SNOMED-CT : [id number] Pending 03/13/2018 Visit Plan: Chronic Pain Syndrome [...] to urology 03/11/2018 Appointment: Al[facility] Jimenez [facility]Ptel[facility] [phone] [facility] [place] (15 min) Moderate 03/11/2018 Patient [...] as indicated. 01/18/2018 Appointment: [facility]enez [facility]el[facility] [phone] [facility] [place] (15 min) Moderate 01/18/2018 [...] current medications. 12/10/2017 Appointment: Alissa Jimenez WPtel: [facility] (30 min) Complex 12/10/2017 Patient Education: Patient Medication Summary Completed 12/10/2017 Appointment: Alissa Jimenez WPtel: [phone] [facility] (30 min) Complex 12/07/2017 Appointment: Alissa Jimenez WPtel: [facility] (15 min) Moderate 11/19/2017 Visit Plan: Chronic [...] current medications. 10/19/2017 Appointment: Alissa Jimenez WPtel: [facility] (30 min) Complex 10/19/2017 Patient Education: Patient [...] becoming uncontrolled. 09/30/2017 Appointment: Alissa Jimenez WPtel: [address] [place], [place] [address] New Patient 09/30/2017 Patient Education: Patient Medication [...] . Recurrent A.fib/SVT - discussed with pt's fiber artist - verified medications and pt is to [...] Referral to urology - Todd Rodrigez fax [phone] attention caleb FRITZ in [place] . Anxiety - the patient has uncontrolled [...] alcohol because it will cause vomiting Call [phone] to get your thyroid ultrasound scheduled. . [...]
--- OUTSIDE RECORDS SUMMARY | 2018-11-24 04:59 | XMS REPORT | CCD ---
Author Author Alissa Jimenez Organization [facility] Address [address] [place] [address] Phone Care Team Providers Care Homemaking Rehabilitation Consultant Name Role Phone PP Unavailable CCM Unavailable Summary Purpose Interface Exchange Insurance Providers Payer name Policy type / Coverage type Covered democrat ID Effective Begin Date Effective End Date [employer] - Medicaid [id number] 2017 Unknown Family history Father Diagnosis Age At Onset No Known Diseases N/A Mother Diagnosis Age At Onset No Known Diseases N/A Social History Social History Element Codes Description Effective Dates Marital status Unknown Single 09/30/2017 Employment Unknown Currently unemployed 09/30/[address]: 8358477 Former smoker 09/30/[address]: 526047208 Never drinks alcohol 09/30/2017 On Disability Unknown Yes 09/30/2017 Allergies, Adverse Reactions, Alerts Substance Reaction Codes Entered Date Inactivated Date Status NO KNOWN DRUG ALLERGIES Unknown 09/30/2017 No Inactive Date Active Past Medical History Illness Codes Condition Status Onset Date Resolved Date Chronic pain syndrome ICD-9: 338.4 ICD-10: G89.4 Active 09/30/2017 Unknown Diverticulitis of large intestine without perforation or abscess without bleeding ICD-9: 562.11 ICD-10: K57.32 Active 08/26/2018 Unknown Essential (primary) hypertension ICD-9: 401.1 ICD-10: I10 Active 05/09/2018 Unknown Other specified hypothyroidism ICD-9: 244.8 ICD-10: [...] ICD-9: 466.0 ICD-10: J20.8 Active 06/27/2018 Unknown Encounter for immunization ICD-9: V03.82 ICD-10: Z23 Active 06/20/2018 Unknown Paroxysmal atrial fibrillation ICD-9: 427.31 ICD-10: I48.0 Active 09/30/2017 Unknown Left lower quadrant pain ICD-9: 789.09 ICD-10: R10.32 Active 01/18/2018 Unknown Low back pain ICD-9: 724.2 ICD-10: M54.5 Active 09/30/2017 Unknown Gastro-esophageal reflux disease without esophagitis ICD-9: 530.81 ICD-10: K21.9 Active 09/30/2017 Unknown Headache ICD-9: 784.0 ICD-10: R51 Active 09/30/2017 Unknown Problems Condition Codes Effective Dates Condition Status Chronic pain syndrome ICD-9: 338.4 ICD-10: G89.4 09/30/2017 Active Diverticulitis of large intestine without perforation or abscess without bleeding ICD-9: 562.11 ICD-10: K57.32 08/26/2018 Active Essential (primary) hypertension ICD-9: 401.1 ICD-10: I10 05/09/2018 Active Other specified hypothyroidism ICD-9: 244.8 ICD-10: [...] organisms ICD-9: 466.0 ICD-10: J20.8 06/27/2018 Active Encounter for immunization ICD-9: V03.82 ICD-10: Z23 06/20/2018 Active Paroxysmal atrial fibrillation ICD-9: 427.31 ICD-10: I48.0 09/30/2017 Active Left lower quadrant pain ICD-9: 789.09 ICD-10: R10.32 01/18/2018 Active Low back pain ICD-9: 724.2 ICD-10: M54.5 09/30/2017 Active Gastro-esophageal reflux disease without esophagitis ICD-9: 530.81 ICD-10: K21.9 09/30/2017 Active Headache ICD-9: 784.0 ICD-10: R51 09/30/2017 Active Medications Medication Codes Instructions Start Date Stop Date Status Fill Instructions alprazolam 1 mg tablet RxNorm: 949587 1 Tablet(s) PO TID as needed anxiety 09/02/2018 10/01/2018 Active Eliquis 5 mg tablet RxNorm: 8690840 1 Tablet(s) PO BID 2017 No Stop Date Active carvedilol 6.25 mg tablet RxNorm: 305329 1 Tablet(s) PO BID No Stop Date Active oxycodone 5 mg tablet RxNorm: 6517029 1 Tablet(s) PO QID as needed for pain 09/02/2018 10/01/2018 Active Flagyl 500 mg tablet RxNorm: 311009 1 Tablet(s) PO TID 201709/04/2018 Active metoprolol succinate ER 25 mg tablet,extended release 24 hr RxNorm: 403999 1/2 Tablet(s) PO daily 08/19/2018 09/17/2018 Active Levothroid 25 mcg tablet RxNorm: 054750 1 Tablet(s) PO daily No Stop Date Active oxycodone 5 mg tablet RxNorm: 5501592 1 Tablet(s) PO QID as needed for pain 08/02/2018 08/31/2018 Inactive alprazolam 1 mg tablet RxNorm: 201376 1 Tablet(s) PO TID as needed anxiety 08/02/2018 08/31/2018 Inactive alprazolam 1 mg tablet RxNorm: 270864 1 Tablet(s) PO TID as needed anxiety 07/05/2018 08/01/2018 Inactive oxycodone 5 mg tablet RxNorm: 5270294 1 Tablet(s) PO QID as needed for pain 07/05/2018 08/01/2018 Inactive Levothroid 25 mcg tablet RxNorm: 889237 1 Tablet(s) PO daily 08/01/2018 Inactive Kenalog 40 mg/mL suspension for injection RxNorm: 6870580 Milliliter(s) Inj 06/27/2018 06/27/2018 Inactive doxycycline hyclate 100 mg tablet RxNorm: 1154720 1 Tablet(s) PO BID 06/27/2018 07/06/2018 Inactive alprazolam 1 mg tablet RxNorm: 490662 1 Tablet(s) PO TID as needed anxiety 06/08/2018 07/04/2018 Inactive Cymbalta 30 mg capsule,delayed release RxNorm: 959139 1 Capsule(s) PO daily 06/07/2018 06/08/2018 Inactive Bystolic 5 mg tablet RxNorm: 762101 1 Tablet(s) PO daily 201706/09/2018 Inactive oxycodone 5 mg tablet RxNorm: 8794787 1 Tablet(s) PO QID as needed for pain 06/07/2018 07/04/2018 Inactive Cymbalta 30 mg capsule,delayed release RxNorm: 168746 1 Capsule(s) PO daily 05/09/2018 06/06/2018 Inactive alprazolam 1 mg tablet RxNorm: 886882 1 Tablet(s) PO TID as needed anxiety 04/05/2018 05/03/2018 Inactive oxycodone 5 mg tablet RxNorm: 9374426 1 Tablet(s) PO QID as needed for pain 04/05/2018 05/04/2018 Inactive cyclobenzaprine 5 mg tablet RxNorm: 437505 1 Tablet(s) PO TID as needed muscle spasms 03/18/2018 06/01/2018 Inactive mupirocin 2 % topical cream RxNorm: 974584 1 Application TOP BID 03/11/2018 06/08/2018 Inactive hydrocodone 5 mg-acetaminophen 325 mg tablet RxNorm: 072347 1 Tablet(s) PO TID as needed for pain 03/10/2018 04/04/2018 Inactive alprazolam 1 mg tablet RxNorm: 616717 1 Tablet(s) PO TID as needed anxiety 03/10/2018 04/04/2018 Inactive hydrocodone 5 mg-acetaminophen 325 mg tablet RxNorm: 474169 1 Tablet(s) PO TID as needed for pain 02/09/2018 03/09/2018 Inactive alprazolam 1 mg tablet RxNorm: 090513 1 Tablet(s) PO TID as needed anxiety 02/09/2018 03/09/2018 Inactive alprazolam 1 mg tablet RxNorm: 424413 1 Tablet(s) PO TID as needed anxiety 01/10/2018 02/08/2018 Inactive pantoprazole 40 mg tablet,delayed release RxNorm: 447654 1 Tablet(s) PO daily 12/27/2017 06/08/2018 Inactive pantoprazole 40 mg tablet,delayed release RxNorm: 122587 1 Tablet(s) PO daily 12/27/2017 12/26/2017 Inactive hydrocodone 5 mg-acetaminophen 325 mg tablet RxNorm: 728786 1 Tablet(s) PO TID as needed for pain 12/09/2017 01/07/2018 Inactive alprazolam 1 mg tablet RxNorm: 671477 1 Tablet(s) PO TID as needed anxiety 12/09/2017 01/07/2018 Inactive alprazolam 1 mg tablet RxNorm: 808612 1 Tablet(s) PO TID as needed anxiety 11/09/2017 12/08/2017 Inactive hydrocodone 5 mg-acetaminophen 325 mg tablet RxNorm: 326153 1 Tablet(s) PO TID as needed for pain 11/09/2017 12/08/2017 Inactive prednisone 20 mg tablet RxNorm: 041296 2 Tablet(s) PO daily 10/24/2017 Inactive hydrocodone 5 mg-acetaminophen 325 mg tablet RxNorm: 323315 1 Tablet(s) PO TID as needed for pain 10/14/2017 2017 Inactive Levothroid 25 mcg tablet RxNorm: 151877 1 Tablet(s) PO daily No Start Date 07/04/2018 Inactive hydrocodone 5 mg-acetaminophen 325 mg tablet RxNorm: 788861 1 Tablet(s) PO TID as needed for pain No Start Date 10/13/2017 Inactive Eliquis 5 mg tablet RxNorm: 0557305 1 Tablet(s) PO BID No Start Date 09/01/2018 Inactive cyclobenzaprine 5 mg tablet RxNorm: 288495 1 Tablet(s) PO TID as needed muscle spasms No Start Date 03/17/2018 Inactive Epclusa 400 mg-100 mg tablet RxNorm: 6461060 1 Tablet(s) PO daily No Start Date 07/11/2018 Inactive carvedilol 6.25 mg tablet RxNorm: 189964 1 Tablet(s) PO BID No Start Date 09/01/2018 Inactive pantoprazole 40 mg tablet,delayed release RxNorm: 028991 1 Tablet(s) PO daily No Start Date 12/26/2017 Inactive alprazolam 1 mg tablet RxNorm: 877810 1 Tablet(s) PO TID as needed anxiety No Start Date 2017 Inactive flecainide 100 mg tablet RxNorm: 602878 1 Tablet(s) PO BID No Start Date 06/08/2018 Inactive metoprolol succinate ER 50 mg tablet,extended release 24 hr RxNorm: 851890 1/2 Tablet(s) PO daily managed by Dr Wilder No Start Date 06/08/2018 Inactive duloxetine 60 mg capsule,delayed release RxNorm: 581641 2 Capsule(s) PO daily No Start Date 11/30/2017 Inactive Medication Administered Medication Codes Instructions Start Date Status Kenalog 40 mg/mL suspension for injection RxNorm: 1657430 Milliliter 06/27/2018 No longer Active Immunizations Vaccine Codes Date Status Influenza CVX: 141 06/20/2018 completed Assessments Condition Codes Effective Dates Supraventricular tachycardia ICD-10: I47.1 ICD-9: 427.89 08/26/2018 Essential (primary) hypertension ICD-10: I10 ICD-9: 401.1 08/26/2018 Chronic pain syndrome ICD-10: G89.4 ICD-9: 338.4 08/26/2018 Other specified hypothyroidism ICD-10: E03.8 ICD-9: [...] for immunization ICD-10: Z23 ICD-9: V03.82 06/20/2018 Paroxysmal atrial fibrillation ICD-10: I48.0 ICD-9: 427.31 06/20/2018 Other hydrocele ICD-10: N43.2 ICD-9: 603.8 05/09/2018 Low back pain ICD-10: M54.5 ICD-9: 724.2 01/18/2018 Left lower quadrant pain ICD-10: R10.32 ICD-9: 789.09 01/18/2018 Gastro-esophageal reflux disease without esophagitis ICD-10 : K21.9 ICD-9: 530.81 09/30/2017 Headache ICD-10: R51 ICD-9: 784.0 09/30/2017 Reason For Visit Reason For Visit Effective Dates Notes abdominal pain 08/26/2018 Hospital Follow Up 08/19/2018 low back pain 07/21/2018 cough 06/27/2018 Hospital Follow Up 06/20/2018 low back pain 05/09/2018 headache 03/11/2018 headache 01/18/2018 headache 12/10/2017 headache 11/09/2017 low back pain 10/19/2017 headache 09/30/2017 Results No Results data Review of Systems System Result Effective Dates Constitutional recent illness 08/26/2018 Constitutional No chills [...] Procedure Codes Date THER/PROPH/DIAG INJ SC/IM CPT-4: 04954 06/27/2018 TRIAMCINOLONE ACET INJ NOS CPT-4: J3301 06/27/2018 IMMUNIZATION ADMIN CPT -4: 68336 06/20/2018 FLU VACC PRSV FREE INC ANTIG CPT-4: 54296 06/20/2018 Vital Signs Date Vital 08/26/2018 Blood Pressure 1: 122/84 Code : 8480-6 BMI: 30.2 Code : 22373-4 Heart Rate 1 : 104 bpm Height: 6' SpO2: 97% Weight: 223 lbs 08/19/2018 Blood Pressure 1: 106/62 Code : 8480-6 BMI: 30.2 Code : 43343-5 Heart Rate 1 : 86 bpm Height: 6' SpO2: 94% Temperature: 36.5 (C) / 97.7 (F) Weight: 223 lbs 07/21/2018 Blood Pressure 1: 112/64 Code : 8480-6 BMI: 30.7 Code : 05575-1 Heart Rate 1 : 93 bpm Height: 6' SpO2: 96% Weight: 226 lbs 06/27/2018 Blood Pressure 1: 106/56 Code : 8480-6 Heart Rate 1: 78 bpm Height: SpO2: 96% Temperature: 36.7 (C) / 98.1 (F) Weight: 228 lbs 06/20/2018 Blood Pressure 1: 130/76 Code : 8480-6 BMI: 30.7 Code : 99425-3 Heart Rate 1 : 83 bpm Height: 6' SpO2: 96% Weight: 226 lbs 05/20/2018 Blood Pressure 1: 124/70 Code : 8480-6 Heart Rate 1: 88 bpm Height: 6' 05/09/2018 Blood Pressure 1: 126/82 Code : 8480-6 BMI: 30.7 Code : 29136-3 Heart Rate 1 : 102 bpm Height: 6' SpO2: 97% Weight: 226 lbs 03/11/2018 Blood Pressure 1: 128/72 Code : 8480-6 BMI: 30.7 Code : 90524-4 Heart Rate 1 : 90 bpm Height: 6' SpO2: 96% Weight: 226 lbs 01/18/2018 Blood Pressure 1: 138/70 Code : 8480-6 BMI: 30.5 Code : 70548-9 Heart Rate 1 : 80 bpm Height: 6' SpO2: 95% Weight: 225 lbs 12/10/2017 Blood Pressure 1: 140/64 Code : 8480-6 BMI: 30.7 Code : 89337-6 Heart Rate 1 : 71 bpm Height: 6' SpO2: 96% Weight: 226 lbs 11/09/2017 Blood Pressure 1: 102/68 Code : 8480-6 Heart Rate 1: 90 bpm Height: 6' SpO2: 97% Weight: 10/19/2017 Blood Pressure 1: 136/82 Code : 8480-6 Heart Rate 1: 98 bpm Height: SpO2: 96% Weight: 09/30/2017 Blood Pressure 1: 130/88 Code : 8480-6 BMI: 31.3 Code : 46224-2 Heart Rate 1 : 101 bpm Height: 6' SpO2: 98% Weight: 231 lbs Functional Status No Functional Status data History of Present Illness Symptom Name Status Result Effective Date Notes Location in the [facility] 08/26/2018 None Quality [...] Performer Location Codes Date EST. PATIENT, LEVEL III Diagnosis: Diverticulitis of large intestine without perforation or abscess without bleeding[ICD10: K57.32] Diagnosis: Essential (primary) hypertension[ICD10: I10] Diagnosis: Chronic pain syndrome[ICD10: G89.4] Diagnosis: Supraventricular tachycardia[ICD10: I47.1] Diagnosis: Other specified hypothyroidism[ICD10: E03.8] Alissa Cowan MD, [facility] CPT-4: 28274 08/26/2018 76458 EST. PATIENT, LEVEL III Diagnosis: Generalized anxiety disorder[ICD10: F41.1] Diagnosis: Major depressive disorder, single episode, moderate[ICD10: F32.1] Diagnosis: Chronic pain syndrome[ICD10: G89.4] Diagnosis: Essential (primary) hypertension[ICD10: I10] Diagnosis: Other specified hypothyroidism[ICD10: E03.8] Diagnosis: Dysphagia, oropharyngeal phase[ICD10: R13.12] Diagnosis: Supraventricular tachycardia[ICD10: I47.1] Alissa Cowan MD, [facility] CPT-4: 81998 08/19/2018 05189 EST. PATIENT, LEVEL IV Diagnosis: Generalized anxiety disorder[ICD10: F41.1] Diagnosis: Major depressive disorder, single episode, moderate[ICD10: F32.1] Diagnosis: Chronic pain syndrome[ICD10: G89.4] Diagnosis: Essential (primary) hypertension[ICD10: I10] Alissa Cowan MD, [facility] CPT-4: 46388 07/21/2018 06375 EST. PATIENT, LEVEL IV Diagnosis: Acute bronchitis due to other specified organisms[ICD10: J20.8] [facility] CPT-4: 81263 06/27/2018 36159 EST. PATIENT, LEVEL III Diagnosis: Paroxysmal atrial fibrillation[ICD10: I48.0] Diagnosis: Chronic pain syndrome[ICD10: G89.4] Diagnosis: Essential (primary) hypertension[ICD10: I10] Diagnosis: Encounter for immunization[ICD10: Z23] Alissa Cowan MD, [facility] CPT-4: 71884 06/20/2018 (88254) Miscellaneous no charge Diagnosis: Generalized anxiety disorder[ICD10: F41.1] Alissa Cowan MD, [facility] CPT-4: 74510 05/20/2018 16946 EST. PATIENT, LEVEL IV Diagnosis: Generalized anxiety disorder[ICD10: F41.1] Diagnosis: Major depressive disorder, single episode, moderate[ICD10: F32.1] Diagnosis: Other hydrocele[ICD10: N43.2] Diagnosis: Chronic pain syndrome[ICD10: G89.4] Diagnosis: Essential (primary) hypertension[ICD10: I10] Alissa Cowan MD, [facility] CPT-4: 77661 05/09/2018 38951 EST. PATIENT, LEVEL IV Diagnosis: Chronic pain syndrome[ICD10: G89.4] Diagnosis: Generalized anxiety disorder[ICD10: F41.1] Diagnosis: Major depressive disorder, single episode, moderate[ICD10: F32.1] Diagnosis: Other hydrocele[ICD10: N43.2] Alissa Cowan MD, [facility] CPT-4 : 82426 03/11/2018 79136 EST. PATIENT, LEVEL IV Diagnosis: Chronic pain syndrome[ICD10: G89.4] Diagnosis: Low back pain[ICD10: M54.5] Diagnosis: Generalized anxiety disorder[ICD10: F41.1] Diagnosis: Major depressive disorder, single episode, moderate[ICD10: F32.1] Diagnosis: Left lower quadrant pain[ICD10: R10.32] Alissa Cowan MD, [facility] CPT-4: 66254 01/18/2018 67134 EST. PATIENT, LEVEL IV Diagnosis: Chronic pain syndrome[ICD10: G89.4] Diagnosis: Low back pain[ICD10: M54.5] Diagnosis: Generalized anxiety disorder[ICD10: F41.1] Diagnosis: Major depressive disorder, single episode, moderate[ICD10: F32.1] Alissa Cowan MD, [facility] CPT-4: 78596 12/10/2017 04153 EST. PATIENT, LEVEL IV Diagnosis: Chronic pain syndrome[ICD10: G89.4] Diagnosis: Low back pain[ICD10: M54.5] Diagnosis: Generalized anxiety disorder[ICD10: F41.1] Diagnosis: Major depressive disorder, single episode, moderate[ICD10: F32.1] Alissa Cowan MD, [facility] CPT-4: 42351 11/09/2017 89307 EST. PATIENT, LEVEL IV Diagnosis: Chronic pain syndrome[ICD10: G89.4] Diagnosis: Low back pain[ICD10: M54.5] Diagnosis: Generalized anxiety disorder[ICD10: F41.1] Diagnosis: Major depressive disorder, single episode, moderate[ICD10: F32.1] Alissa Cowan MD, [facility] CPT-4: 11540 10/19/2017 OFFICE VISIT, NEW - LEVEL 4 Diagnosis: Chronic pain syndrome[ICD10: G89.4] Diagnosis: Low back pain[ICD10: M54.5] Diagnosis: Headache[ICD10: R51] Diagnosis: Generalized anxiety disorder[ICD10: F41.1] Diagnosis: Major depressive disorder, single episode, moderate[ICD10: F32.1] Diagnosis: Gastro-esophageal reflux disease without esophagitis[ICD10: K21.9] Diagnosis: Paroxysmal atrial fibrillation[ICD10: I48.0] Alissa Cowan MD, [facility] CPT-4: 02008 09/30/2017 Plan of Care Planned Activity Notes Codes Status Date Visit Plan: Diverticulitis - rx for antibiotic [...] control. 08/26/2018 [phone] [facility] ([facility] min) Moderate 08/26/2018 Patient Education: [...] 08/19/2018 [facility] [phone] [facility] (30 min) Complex 08/19/2018 Patient Education: [...] medication. 07/21/2018 Appointment: Alissa Jimenez WPtel: [phone] [facility] (15 min) Moderate 07/21/2018 Patient Education: Patient Medication Summary Completed 07/21/2018 Patient Education: Depression Completed 07/21/2018 Visit Plan: Bronchitis - acute case of bronchitis identified. Pt has been given antibiotics, steroids as appropriate, and pt has been instructed to call if symptoms are not improved, or if symptoms acutely worsen. 06/27/2018 Appointment: Alissa Jimenez WPtel: [phone] [facility] (15 min) Moderate 06/27/2018 Patient Education: Patient [...] medication. 06/20/2018 Appointment: Alissa Jimenez WPtel: [phone] [facility] (15 min) Moderate 06/20/2018 Patient Education: [...] of over-medication. 05/09/2018 Appointment: Alissa Jimenez WPtel: [facility] (15 min) Moderate 05/09/2018 Patient Education: Patient Medication Summary Completed 05/09/2018 Appointment: Alissa Jimenez WPtel: [facility] (30 min) Complex 03/22/2018 Referral: External, Ordering Provider they will call him for appt Initiated Care Plan: Referral Order SNOMED-CT : [id number] Pending 03/13/2018 Visit Plan: Chronic Pain Syndrome [...] to urology 03/11/2018 Appointment: Alissa Jimenez WPtel: [facility] [place] (15 min) Moderate 03/11/2018 Patient [...] as indicated. 01/18/2018 Appointment: Alissa Jimenez WPtel: [facility] (15 min) Moderate 01/18/2018 Patient Education: [...] current medications. 12/10/2017 Appointment: Alissa Jimenez WPtel: [facility] [place] (30 min) Complex 12/10/2017 Patient Education: Patient Medication Summary Completed 12/10/2017 Appointment: Alissa Jimenez WPtel: [phone] [facility] [place] (30 min) Complex 12/07/2017 Appointment: Alissa Jimenez WPtel: [facility] [place] (15 min) Moderate 11/19/2017 Visit [...] change in current medications. 10/19/2017 Appointment: Alissa Jimeneztel: [facility] ([facility] min) Complex 10/19/2017 Patient Education: Patient [...] rate is becoming uncontrolled. 09/30/2017 Appointment: [facility] [phone] [facility] [place] New Patient 09/30/2017 Patient Education: [...] directed, and understands the consequences of over-medication. will start cymbalta for depression/anxiety stay off the metoprolol check heart rate and blood pressures at home and write them down will give you a low dose bystolic for blood pressure and heart rate - take a 1/ 2 pill daily and let me know if it is causing you to feel bad. Referral to urology - Todd Rodrigez fax [phone] attention caleb in [place] . Anxiety - the patient has uncontrolled [...] alcohol because it will cause vomiting Call [phone] to get your thyroid ultrasound scheduled. . [...]
[2018-11-24 05:00] VITALS: BP 115/77
--- OUTSIDE RECORDS SUMMARY | 2018-11-24 05:00 | XMS REPORT | CCD ---
Author Author Alissa Jimenez Organization [facility] Address [address] [place] [address] Phone Care Team Providers Care [facility] Name Role Phone PP Unavailable CCM Unavailable Summary Purpose Interface Exchange Insurance Providers Payer name Policy type / Coverage type Covered libertarian ID Effective Begin Date Effective End Date [employer] - Medicaid [id number] 2017 Unknown Family history Father Diagnosis Age At Onset No Known Diseases N/A Mother Diagnosis Age At Onset No Known Diseases N/A Social History Social History Element Codes Description Effective Dates Marital status Unknown Single 09/30/2017 Employment Unknown Currently unemployed 09/30/[address]: 1878457 Former smoker 09/30/[address]: 102999047 Never drinks alcohol 09/30/2017 On Disability Unknown [...] Start Date Stop Date Status Fill Instructions Flagyl 500 mg tablet RxNorm: 915858 1 Tablet(s) PO TID 201709/04/2018 Active metoprolol succinate ER 25 mg tablet,extended release 24 hr RxNorm: 543909 1/2 Tablet(s) PO daily 08/19/2018 09/17/2018 Active alprazolam 1 mg tablet RxNorm: 629961 1 Tablet(s) PO TID as needed anxiety 08/02/2018 08/31/2018 Inactive Levothroid 25 mcg tablet RxNorm: 390792 1 Tablet(s) PO daily No Stop Date Active oxycodone 5 mg tablet RxNorm: 3292949 1 Tablet(s) PO QID as needed for pain 08/02/2018 08/31/2018 Inactive alprazolam 1 mg tablet RxNorm: 293360 1 Tablet(s) PO TID as needed anxiety 07/05/2018 08/01/2018 Inactive oxycodone 5 mg tablet RxNorm: 2034974 1 Tablet(s) PO QID as needed for pain 07/05/2018 08/01/2018 Inactive Levothroid 25 mcg tablet RxNorm: 860622 1 Tablet(s) PO daily 08/01/2018 Inactive Kenalog 40 mg/mL suspension for injection RxNorm: 0122490 Milliliter(s) Inj 06/27/2018 06/27/2018 Inactive doxycycline hyclate 100 mg tablet RxNorm: 2059178 1 Tablet(s) PO BID 06/27/2018 07/06/2018 Inactive alprazolam 1 mg tablet RxNorm: 314830 1 Tablet(s) PO TID as needed anxiety 06/08/2018 07/04/2018 Inactive Cymbalta 30 mg capsule,delayed release RxNorm: 693567 1 Capsule(s) PO daily 06/07/2018 06/08/2018 Inactive Bystolic 5 mg tablet RxNorm: 818583 1 Tablet(s) PO daily 201706/09/2018 Inactive oxycodone 5 mg tablet RxNorm: 9991318 1 Tablet(s) PO QID as needed for pain 06/07/2018 07/04/2018 Inactive Cymbalta 30 mg capsule,delayed release RxNorm: 329101 1 Capsule(s) PO daily 05/09/2018 06/06/2018 Inactive alprazolam 1 mg tablet RxNorm: 571812 1 Tablet(s) PO TID as needed anxiety 04/05/2018 05/03/2018 Inactive oxycodone 5 mg tablet RxNorm: 6180400 1 Tablet(s) PO QID as needed for pain 04/05/2018 05/04/2018 Inactive cyclobenzaprine 5 mg tablet RxNorm: 480185 1 Tablet(s) PO TID as needed muscle spasms 03/18/2018 06/01/2018 Inactive mupirocin 2 % topical cream RxNorm: 417776 1 Application TOP BID 03/11/2018 06/08/2018 Inactive hydrocodone 5 mg-acetaminophen 325 mg tablet RxNorm: 473807 1 Tablet(s) PO TID as needed for pain 03/10/2018 04/04/2018 Inactive alprazolam 1 mg tablet RxNorm: 668563 1 Tablet(s) PO TID as needed anxiety 03/10/2018 04/04/2018 Inactive hydrocodone 5 mg-acetaminophen 325 mg tablet RxNorm: 941325 1 Tablet(s) PO TID as needed for pain 02/09/2018 03/09/2018 Inactive alprazolam 1 mg tablet RxNorm: 618324 1 Tablet(s) PO TID as needed anxiety 02/09/2018 03/09/2018 Inactive alprazolam 1 mg tablet RxNorm: 747997 1 Tablet(s) PO TID as needed anxiety 01/10/2018 02/08/2018 Inactive pantoprazole 40 mg tablet,delayed release RxNorm: 203747 1 Tablet(s) PO daily 12/27/2017 06/08/2018 Inactive pantoprazole 40 mg tablet,delayed release RxNorm: 115316 1 Tablet(s) PO daily 12/27/2017 12/26/2017 Inactive hydrocodone 5 mg-acetaminophen 325 mg tablet RxNorm: 652045 1 Tablet(s) PO TID as needed for pain 12/09/2017 01/07/2018 Inactive alprazolam 1 mg tablet RxNorm: 753830 1 Tablet(s) PO TID as needed anxiety 12/09/2017 01/07/2018 Inactive alprazolam 1 mg tablet RxNorm: 135310 1 Tablet(s) PO TID as needed anxiety 11/09/2017 12/08/2017 Inactive hydrocodone 5 mg-acetaminophen 325 mg tablet RxNorm: 108019 1 Tablet(s) PO TID as needed for pain 11/09/2017 12/08/2017 Inactive prednisone 20 mg tablet RxNorm: 597013 2 Tablet(s) PO daily 10/24/2017 Inactive hydrocodone 5 mg-acetaminophen 325 mg tablet RxNorm: 045088 1 Tablet(s) PO TID as needed for pain 10/14/2017 2017 Inactive Eliquis 5 mg tablet RxNorm: 7577535 1 Tablet(s) PO BID No Start Date Active carvedilol 6.25 mg tablet RxNorm: 856365 1 Tablet(s) PO BID No Start Date Active Levothroid 25 mcg tablet RxNorm: 655298 1 Tablet(s) PO daily No Start Date 07/04/2018 Inactive hydrocodone 5 mg-acetaminophen 325 mg tablet RxNorm: 466590 1 Tablet(s) PO TID as needed for pain No Start Date 10/13/2017 Inactive cyclobenzaprine 5 mg tablet RxNorm: 015845 1 Tablet(s) PO TID as needed muscle spasms No Start Date 03/17/2018 Inactive Epclusa 400 mg-100 mg tablet RxNorm: 7408513 1 Tablet(s) PO daily No Start Date 07/11/2018 Inactive pantoprazole 40 mg tablet,delayed release RxNorm: 830044 1 Tablet(s) PO daily No Start Date 12/26/2017 Inactive alprazolam 1 mg tablet RxNorm: 362992 1 Tablet(s) PO TID as needed anxiety No Start Date 2017 Inactive flecainide 100 mg tablet RxNorm: 944925 1 Tablet(s) PO BID No Start Date 06/08/2018 Inactive metoprolol succinate ER 50 mg tablet,extended release 24 hr RxNorm: 128549 1/2 Tablet(s) PO daily managed by Dr Wilder No Start Date 06/08/2018 Inactive duloxetine 60 mg capsule,delayed release RxNorm: 397977 2 Capsule(s) PO daily No Start Date 11/30/2017 Inactive Medication Administered Medication Codes Instructions Start Date Status Kenalog 40 mg/mL suspension for injection RxNorm: 9848833 Milliliter 06/27/2018 No longer Active Immunizations Vaccine [...] Procedure Codes Date THER/PROPH/DIAG INJ SC/IM CPT-4: 55755 06/27/2018 TRIAMCINOLONE ACET INJ NOS CPT-4: J3301 06/27/2018 IMMUNIZATION ADMIN CPT -4: 48053 06/20/2018 FLU VACC PRSV FREE INC ANTIG CPT-4: 71970 06/20/2018 Vital Signs Date Vital 08/26/2018 Blood Pressure 1: 122/84 Code : 8480-6 BMI: 30.2 Code : 91871-0 Heart Rate 1 : 104 bpm Height: 6' SpO2: 97% Weight: 223 lbs 08/19/2018 Blood Pressure 1: 106/62 Code : 8480-6 BMI: 30.2 Code : 65166-6 Heart Rate 1 : 86 bpm Height: 6' SpO2: 94% Temperature: 36.5 (C) / 97.7 (F) Weight: 223 lbs 07/21/2018 Blood Pressure 1: 112/64 Code : 8480-6 BMI: 30.7 Code : 24441-0 Heart Rate 1 : 93 bpm Height: 6' SpO2: 96% Weight: 226 lbs 06/27/2018 Blood Pressure 1: 106/56 Code : 8480-6 Heart Rate 1: 78 bpm Height: SpO2: 96% Temperature: 36.7 (C) / 98.1 (F) Weight: 228 lbs 06/20/2018 Blood Pressure 1: 130/76 Code : 8480-6 BMI: 30.7 Code : 71474-9 Heart Rate 1 : 83 bpm Height: 6' SpO2: 96% Weight: 226 lbs 05/20/2018 Blood Pressure 1: 124/70 Code : 8480-6 Heart Rate 1: 88 bpm Height: 6' 05/09/2018 Blood Pressure 1: 126/82 Code : 8480-6 BMI: 30.7 Code : 22413-9 Heart Rate 1 : 102 bpm Height: 6' SpO2: 97% Weight: 226 lbs 03/11/2018 Blood Pressure 1: 128/72 Code : 8480-6 BMI: 30.7 Code : 22260-1 Heart Rate 1 : 90 bpm Height: 6' SpO2: 96% Weight: 226 lbs 01/18/2018 Blood Pressure 1: 138/70 Code : 8480-6 BMI: 30.5 Code : 75708-9 Heart Rate 1 : 80 bpm Height: 6' SpO2: 95% Weight: 225 lbs 12/10/2017 Blood Pressure 1: 140/64 Code : 8480-6 BMI: 30.7 Code : 95370-3 Heart Rate 1 : 71 bpm Height: 6' SpO2: 96% Weight: 226 lbs 11/09/2017 Blood Pressure 1: 102/68 Code : 8480-6 Heart Rate 1: 90 bpm Height: 6' SpO2: 97% Weight: 10/19/2017 Blood Pressure 1: 136/82 Code : 8480-6 Heart Rate 1: 98 bpm Height: SpO2: 96% Weight: 09/30/2017 Blood Pressure 1: 130/88 Code : 8480-6 BMI: 31.3 Code : 82130-5 Heart Rate 1 : 101 bpm Height: [...] data Encounters Encounter Performer Location Codes Date 29015 EST. PATIENT, LEVEL III Diagnosis: Diverticulitis of large intestine without perforation or abscess without bleeding[ICD10: K57.32] Diagnosis: Essential (primary) hypertension[ICD10: I10] Diagnosis: Chronic pain syndrome[ICD10: G89.4] Diagnosis: Supraventricular tachycardia[ICD10: I47.1] Diagnosis: Other specified hypothyroidism[ICD10: E03.8] [facility] CPT-4: 34761 08/26/2018 15883 EST. PATIENT, LEVEL III Diagnosis: Generalized anxiety disorder[ICD10: F41.1] Diagnosis: Major depressive disorder, single episode, moderate[ICD10: F32.1] Diagnosis: Chronic pain syndrome[ICD10: G89.4] Diagnosis: Essential (primary) hypertension[ICD10: I10] Diagnosis: Other specified hypothyroidism[ICD10: E03.8] Diagnosis: Dysphagia, oropharyngeal phase[ICD10: R13.12] Diagnosis: Supraventricular tachycardia[ICD10: I47.1] [facility], [facility] CPT-4: 80405 08/19/2018 30917 EST. PATIENT, LEVEL IV Diagnosis: Generalized anxiety disorder[ICD10: F41.1] Diagnosis: Major depressive disorder, single episode, moderate[ICD10: F32.1] Diagnosis: Chronic pain syndrome[ICD10: G89.4] Diagnosis: Essential (primary) hypertension[ICD10: I10] [facility] MD, [facility] CPT-4: 66612 07/21/2018 82072 EST. PATIENT, LEVEL IV Diagnosis: Acute bronchitis due to other specified organisms[ICD10: J20.8] [facility] MD, [facility] CPT-4: 69949 06/27/2018 30428 EST. PATIENT, LEVEL III Diagnosis: Paroxysmal atrial fibrillation[ICD10: I48.0] Diagnosis: Chronic pain syndrome[ICD10: G89.4] Diagnosis: Essential (primary) hypertension[ICD10: I10] Diagnosis: Encounter for immunization[ICD10: Z23] [facility], [facility] CPT-4: 92051 06/20/2018 (19458) Miscellaneous no charge Diagnosis: Generalized anxiety disorder[ICD10: F41.1] [facility]issa [facility] MD, [facility] CPT-4: 44650 05/20/2018 49157 EST. PATIENT, LEVEL IV Diagnosis: Generalized anxiety disorder[ICD10: F41.1] Diagnosis: Major depressive disorder, single episode, moderate[ICD10: F32.1] Diagnosis: Other hydrocele[ICD10: N43.2] Diagnosis: Chronic pain syndrome[ICD10: G89.4] Diagnosis: Essential (primary) hypertension[ICD10: I10] Alissa [facility]an MD, [facility] CPT-4: 73234 05/09/2018 19218 EST. PATIENT, LEVEL IV Diagnosis: Chronic pain syndrome[ICD10: G89.4] Diagnosis: Generalized anxiety disorder[ICD10: F41.1] Diagnosis: Major depressive disorder, single episode, moderate[ICD10: F32.1] Diagnosis: Other hydrocele[ICD10: N43.2] [facility] MD, [facility] CPT-4 : 29597 03/11/2018 25642 EST. PATIENT, LEVEL IV Diagnosis: Chronic pain syndrome[ICD10: G89.4] Diagnosis: Low back pain[ICD10: M54.5] Diagnosis: Generalized anxiety disorder[ICD10: F41.1] Diagnosis: Major depressive disorder, single episode, moderate[ICD10: F32.1] Diagnosis: Left lower quadrant pain[ICD10: R10.32] [facility] MD, [facility] CPT-4: 40729 01/18/2018 23122 EST. PATIENT, LEVEL IV Diagnosis: Chronic pain syndrome[ICD10: G89.4] Diagnosis: Low back pain[ICD10: M54.5] Diagnosis: Generalized anxiety disorder[ICD10: F41.1] Diagnosis: Major depressive disorder, single episode, moderate[ICD10: F32.1] [facility] MD, [facility] CPT-4: 43690 12/10/2017 90097 EST. PATIENT, LEVEL IV Diagnosis: Chronic pain syndrome[ICD10: G89.4] Diagnosis: Low back pain[ICD10: M54.5] Diagnosis: Generalized anxiety disorder[ICD10: F41.1] Diagnosis: Major depressive disorder, single episode, moderate[ICD10: F32.1] [facility], [facility] CPT-4: 74526 11/09/2017 97433 EST. PATIENT, LEVEL IV Diagnosis: Chronic pain syndrome[ICD10: G89.4] Diagnosis: Low back pain[ICD10: M54.5] Diagnosis: Generalized anxiety disorder[ICD10: F41.1] Diagnosis: Major depressive disorder, single episode, moderate[ICD10: F32.1] [facility] MD, [facility] CPT-4: 63843 10/19/2017 OFFICE VISIT, NEW - LEVEL 4 Diagnosis: Chronic pain syndrome[ICD10: G89.4] Diagnosis: Low back pain[ICD10: M54.5] Diagnosis: Headache[ICD10: R51] Diagnosis: Generalized anxiety disorder[ICD10: F41.1] Diagnosis: Major depressive disorder, single episode, moderate[ICD10: F32.1] Diagnosis: Gastro-esophageal reflux disease without esophagitis[ICD10: K21.9] Diagnosis: Paroxysmal atrial fibrillation[ICD10: I48.0] [facility] CPT-4: 58188 09/30/2017 Plan of Care Planned Activity Notes [...] on previous levels of control. 08/26/2018 Appointment: Alisas Jimenez WPtel: [address] [place], [place] [id number] (15 min) Moderate 08/26/2018 Patient Education: Patient [...] [place] 08/19/2018 [facility] [phone] [facility] [place] (30 min) Complex 08/19/2018 Patient [...] medication. 07/21/2018 App[facility]ment: [facility] [phone] [facility] [place] (15 min) Moderate 07/21/2018 Patient Education: Patient Medication Summary Completed 07/21/2018 Patient Education: Depression Completed 07/21/2018 Visit Plan: Bronchitis - acute case of bronchitis identified. Pt has been given antibiotics, steroids as appropriate, and pt has been instructed to call if symptoms are not improved, or if symptoms acutely worsen. 06/27/2018 Appointment: Alissa Jimenez WPtel: [phone] [facility] (15 min) Moderate 06/27/2018 Patient Education: [...] medication. 06/20/2018 App[facility]ment: [facility] [phone] [facility] (15 min) Moderate 06/20/2018 Patient Education: [...] of over-medication. 05/09/2018 App[facility]ment: [facility] [phone] [facility] (15 min) Moderate 05/09/2018 Patient Education: Patient Medication Summary Completed 05/09/2018 App[facility]ment: [facility] [phone] [facility] [place] (30 min) Complex 03/22/2018 Referral: External, Ordering Provider they will call him for appt Initiated Care Plan: Referral Order SNOMED-CT : [id number] Pending 03/13/2018 Visit Plan: Chronic Pain Syndrome [...] urology 03/11/2018 Appointment: [facility] Jimenez [facility] [phone] [facility] [place] (15 min) Moderate 03/11/2018 Patient [...] indicated. 01/18/2018 App[facility]ment: [facility] [phone] [facility] (15 min) Moderate 01/18/2018 Patient Education: Patient [...] medications. 12/10/2017 Appointment: Alissa Jimenez WPtel: [phone] [facility] (30 min) Complex 12/10/2017 Patient Education: Patient Medication Summary Completed 12/10/2017 Appointment: Alissa Jimenez WPtel: [phone] [facility] (30 min) Complex 12/07/2017 App[facility]ment: [facility] [phone] [facility] (15 min) Moderate 11/19/2017 Visit Plan: Chronic [...] medications. 10/19/2017 App[facility]ment: [facility] [phone] [facility] (30 min) Complex 10/19/2017 Patient Education: [...] uncontrolled. 09/30/2017 Appointment: [facility] [phone] [facility] New Patient 09/30/2017 Patient Education: Patient Medication [...] Referral to urology - Todd Rodrigez fax [phone] attention caleb FRITZ in [place] . Anxiety - the patient has uncontrolled [...] alcohol because it will cause vomiting Call [phone] to get your thyroid ultrasound scheduled. . [...]
[2018-11-24] MEDS ORDERED: MULTAQ 400 MG (05:01)
[2018-11-24] MEDS ORDERED: ELIQUIS TAB 5MG (05:01)
[2018-11-24] MEDS ORDERED: CARTIA XT (05:01)
[2018-11-24] MEDS ORDERED: LEVOTHYROXIN TAB 25MCG (05:01)
--- OUTSIDE RECORDS SUMMARY | 2018-11-24 05:01 | XMS REPORT | CCD ---
Author Author Alissa Jimenez Organization [facility] Address [address] [place] [address] Phone Care Team Providers Care Manager Reimbursement Name Role Phone PP Unavailable CCM Unavailable Summary Purpose Interface Exchange Insurance Providers Payer name Policy type / Coverage type Covered green party ID Effective Begin Date Effective End Date [employer] - Medicaid [id number] 2017 Unknown Family history Father Diagnosis Age At Onset No Known Diseases N/A Mother Diagnosis Age At Onset No Known Diseases N/A Social History Social History Element Codes Description Effective Dates Marital status Unknown Single 09/30/2017 Employment Unknown Currently unemployed 09/30/[address]: 8453398 Former smoker 09/30/[address]: 649562293 Never drinks alcohol 09/30/2017 On Disability Unknown [...] Fill Instructions Flagyl 500 mg tablet RxNorm: 777307 1 Tablet(s) PO TID 201709/04/2018 Active metoprolol succinate ER 25 mg tablet,extended release 24 hr RxNorm: 522755 1/2 Tablet(s) PO daily 08/19/2018 09/17/2018 Active oxycodone 5 mg tablet RxNorm: 4400202 1 Tablet(s) PO QID as needed for pain 08/02/2018 08/31/2018 Active alprazolam 1 mg tablet RxNorm: 123671 1 Tablet(s) PO TID as needed anxiety 08/02/2018 08/31/2018 Active Levothroid 25 mcg tablet RxNorm: 748969 1 Tablet(s) PO daily No Stop Date Active alprazolam 1 mg tablet RxNorm: 381229 1 Tablet(s) PO TID as needed anxiety 07/05/2018 08/01/2018 Inactive oxycodone 5 mg tablet RxNorm: 9859146 1 Tablet(s) PO QID as needed for pain 07/05/2018 08/01/2018 Inactive Levothroid 25 mcg tablet RxNorm: 457732 1 Tablet(s) PO daily 08/01/2018 Inactive Kenalog 40 mg/mL suspension for injection RxNorm: 4165633 Milliliter(s) Inj 06/27/2018 06/27/2018 Inactive doxycycline hyclate 100 mg tablet RxNorm: 1644804 1 Tablet(s) PO BID 06/27/2018 07/06/2018 Inactive alprazolam 1 mg tablet RxNorm: 479761 1 Tablet(s) PO TID as needed anxiety 06/08/2018 07/04/2018 Inactive Cymbalta 30 mg capsule,delayed release RxNorm: 762254 1 Capsule(s) PO daily 06/07/2018 06/08/2018 Inactive Bystolic 5 mg tablet RxNorm: 983791 1 Tablet(s) PO daily 201706/09/2018 Inactive oxycodone 5 mg tablet RxNorm: 2247428 1 Tablet(s) PO QID as needed for pain 06/07/2018 07/04/2018 Inactive Cymbalta 30 mg capsule,delayed release RxNorm: 763368 1 Capsule(s) PO daily 05/09/2018 06/06/2018 Inactive alprazolam 1 mg tablet RxNorm: 126527 1 Tablet(s) PO TID as needed anxiety 04/05/2018 05/03/2018 Inactive oxycodone 5 mg tablet RxNorm: 2878399 1 Tablet(s) PO QID as needed for pain 04/05/2018 05/04/2018 Inactive cyclobenzaprine 5 mg tablet RxNorm: 850973 1 Tablet(s) PO TID as needed muscle spasms 03/18/2018 06/01/2018 Inactive mupirocin 2 % topical cream RxNorm: 513734 1 Application TOP BID 03/11/2018 06/08/2018 Inactive hydrocodone 5 mg-acetaminophen 325 mg tablet RxNorm: 911367 1 Tablet(s) PO TID as needed for pain 03/10/2018 04/04/2018 Inactive alprazolam 1 mg tablet RxNorm: 727076 1 Tablet(s) PO TID as needed anxiety 03/10/2018 04/04/2018 Inactive hydrocodone 5 mg-acetaminophen 325 mg tablet RxNorm: 011667 1 Tablet(s) PO TID as needed for pain 02/09/2018 03/09/2018 Inactive alprazolam 1 mg tablet RxNorm: 167450 1 Tablet(s) PO TID as needed anxiety 02/09/2018 03/09/2018 Inactive alprazolam 1 mg tablet RxNorm: 324778 1 Tablet(s) PO TID as needed anxiety 01/10/2018 02/08/2018 Inactive pantoprazole 40 mg tablet,delayed release RxNorm: 714916 1 Tablet(s) PO daily 12/27/2017 06/08/2018 Inactive pantoprazole 40 mg tablet,delayed release RxNorm: 567703 1 Tablet(s) PO daily 12/27/2017 12/26/2017 Inactive hydrocodone 5 mg-acetaminophen 325 mg tablet RxNorm: 446268 1 Tablet(s) PO TID as needed for pain 12/09/2017 01/07/2018 Inactive alprazolam 1 mg tablet RxNorm: 363094 1 Tablet(s) PO TID as needed anxiety 12/09/2017 01/07/2018 Inactive alprazolam 1 mg tablet RxNorm: 561547 1 Tablet(s) PO TID as needed anxiety 11/09/2017 12/08/2017 Inactive hydrocodone 5 mg-acetaminophen 325 mg tablet RxNorm: 080310 1 Tablet(s) PO TID as needed for pain 11/09/2017 12/08/2017 Inactive prednisone 20 mg tablet RxNorm: 941106 2 Tablet(s) PO daily 10/24/2017 Inactive hydrocodone 5 mg-acetaminophen 325 mg tablet RxNorm: 120554 1 Tablet(s) PO TID as needed for pain 10/14/2017 2017 Inactive Eliquis 5 mg tablet RxNorm: 1234918 1 Tablet(s) PO BID No Start Date Active carvedilol 6.25 mg tablet RxNorm: 557744 1 Tablet(s) PO BID No Start Date Active Levothroid 25 mcg tablet RxNorm: 908210 1 Tablet(s) PO daily No Start Date 07/04/2018 Inactive hydrocodone 5 mg-acetaminophen 325 mg tablet RxNorm: 806805 1 Tablet(s) PO TID as needed for pain No Start Date 10/13/2017 Inactive cyclobenzaprine 5 mg tablet RxNorm: 254401 1 Tablet(s) PO TID as needed muscle spasms No Start Date 03/17/2018 Inactive Epclusa 400 mg-100 mg tablet RxNorm: 9079810 1 Tablet(s) PO daily No Start Date 07/11/2018 Inactive pantoprazole 40 mg tablet,delayed release RxNorm: 167259 1 Tablet(s) PO daily No Start Date 12/26/2017 Inactive alprazolam 1 mg tablet RxNorm: 580481 1 Tablet(s) PO TID as needed anxiety No Start Date 2017 Inactive flecainide 100 mg tablet RxNorm: 045631 1 Tablet(s) PO BID No Start Date 06/08/2018 Inactive metoprolol succinate ER 50 mg tablet,extended release 24 hr RxNorm: 508432 1/2 Tablet(s) PO daily managed by Dr Wilder No Start Date 06/08/2018 Inactive duloxetine 60 mg capsule,delayed release RxNorm: 685532 2 Capsule(s) PO daily No Start Date 11/30/2017 Inactive Medication Administered Medication Codes Instructions Start Date Status Kenalog 40 mg/mL suspension for injection RxNorm: 1069083 Milliliter 06/27/2018 No longer Active Immunizations Vaccine [...] Procedure Codes Date THER/PROPH/DIAG INJ SC/IM CPT-4: 32749 06/27/2018 TRIAMCINOLONE ACET INJ NOS CPT-4: J3301 06/27/2018 IMMUNIZATION ADMIN CPT -4: 74635 06/20/2018 FLU VACC PRSV FREE INC ANTIG CPT-4: 44568 06/20/2018 Vital Signs Date Vital 08/26/2018 Blood Pressure 1: 122/84 Code : 8480-6 BMI: 30.2 Code : 93508-5 Heart Rate 1 : 104 bpm Height: 6' SpO2: 97% Weight: 223 lbs 08/19/2018 Blood Pressure 1: 106/62 Code : 8480-6 BMI: 30.2 Code : 52292-0 Heart Rate 1 : 86 bpm Height: 6' SpO2: 94% Temperature: 36.5 (C) / 97.7 (F) Weight: 223 lbs 07/21/2018 Blood Pressure 1: 112/64 Code : 8480-6 BMI: 30.7 Code : 13403-8 Heart Rate 1 : 93 bpm Height: 6' SpO2: 96% Weight: 226 lbs 06/27/2018 Blood Pressure 1: 106/56 Code : 8480-6 Heart Rate 1: 78 bpm Height: SpO2: 96% Temperature: 36.7 (C) / 98.1 (F) Weight: 228 lbs 06/20/2018 Blood Pressure 1: 130/76 Code : 8480-6 BMI: 30.7 Code : 62958-2 Heart Rate 1 : 83 bpm Height: 6' SpO2: 96% Weight: 226 lbs 05/20/2018 Blood Pressure 1: 124/70 Code : 8480-6 Heart Rate 1: 88 bpm Height: 6' 05/09/2018 Blood Pressure 1: 126/82 Code : 8480-6 BMI: 30.7 Code : 91201-0 Heart Rate 1 : 102 bpm Height: 6' SpO2: 97% Weight: 226 lbs 03/11/2018 Blood Pressure 1: 128/72 Code : 8480-6 BMI: 30.7 Code : 08031-5 Heart Rate 1 : 90 bpm Height: 6' SpO2: 96% Weight: 226 lbs 01/18/2018 Blood Pressure 1: 138/70 Code : 8480-6 BMI: 30.5 Code : 59784-0 Heart Rate 1 : 80 bpm Height: 6' SpO2: 95% Weight: 225 lbs 12/10/2017 Blood Pressure 1: 140/64 Code : 8480-6 BMI: 30.7 Code : 80648-8 Heart Rate 1 : 71 bpm Height: 6' SpO2: 96% Weight: 226 lbs 11/09/2017 Blood Pressure 1: 102/68 Code : 8480-6 Heart Rate 1: 90 bpm Height: 6' SpO2: 97% Weight: 10/19/2017 Blood Pressure 1: 136/82 Code : 8480-6 Heart Rate 1: 98 bpm Height: SpO2: 96% Weight: 09/30/2017 Blood Pressure 1: 130/88 Code : 8480-6 BMI: 31.3 Code : 78909-5 Heart Rate 1 : 101 bpm Height: [...] data Encounters Encounter Performer Location Codes Date 13681 EST. PATIENT, LEVEL III Diagnosis: Diverticulitis of large intestine without perforation or abscess without bleeding[ICD10: K57.32] Diagnosis: Essential (primary) hypertension[ICD10: I10] Diagnosis: Chronic pain syndrome[ICD10: G89.4] Diagnosis: Supraventricular tachycardia[ICD10: I47.1] Diagnosis: Other specified hypothyroidism[ICD10: E03.8] [facility] CPT-4: 20969 08/26/2018 03382 EST. PATIENT, LEVEL III Diagnosis: Generalized anxiety disorder[ICD10: F41.1] Diagnosis: Major depressive disorder, single episode, moderate[ICD10: F32.1] Diagnosis: Chronic pain syndrome[ICD10: G89.4] Diagnosis: Essential (primary) hypertension[ICD10: I10] Diagnosis: Other specified hypothyroidism[ICD10: E03.8] Diagnosis: Dysphagia, oropharyngeal phase[ICD10: R13.12] Diagnosis: Supraventricular tachycardia[ICD10: I47.1] [facility] MD, [facility] CPT-4: 01509 08/19/2018 31167 EST. PATIENT, LEVEL IV Diagnosis: Generalized anxiety disorder[ICD10: F41.1] Diagnosis: Major depressive disorder, single episode, moderate[ICD10: F32.1] Diagnosis: Chronic pain syndrome[ICD10: G89.4] Diagnosis: Essential (primary) hypertension[ICD10: I10] Alissa Cowan MD, [facility] CPT-4: 32389 07/21/2018 70817 EST. PATIENT, LEVEL IV Diagnosis: Acute bronchitis due to other specified organisms[ICD10: J20.8] Alissa [facility] MD, [facility] CPT-4: 57575 06/27/2018 62392 EST. PATIENT, LEVEL III Diagnosis: Paroxysmal atrial fibrillation[ICD10: I48.0] Diagnosis: Chronic pain syndrome[ICD10: G89.4] Diagnosis: Essential (primary) hypertension[ICD10: I10] Diagnosis: Encounter for immunization[ICD10: Z23] [facility]issa [facility] MD, [facility] CPT-4: 41553 06/20/2018 (73487) Miscellaneous no charge Diagnosis: Generalized anxiety disorder[ICD10: F41.1] [facility] MD, [facility] CPT-4: 37427 05/20/2018 94962 EST. PATIENT, LEVEL IV Diagnosis: Generalized anxiety disorder[ICD10: F41.1] Diagnosis: Major depressive disorder, single episode, moderate[ICD10: F32.1] Diagnosis: Other hydrocele[ICD10: N43.2] Diagnosis: Chronic pain syndrome[ICD10: G89.4] Diagnosis: Essential (primary) hypertension[ICD10: I10] Alissa Cow[facility] MD, [facility] CPT-4: 65645 05/09/2018 20600 EST. PATIENT, LEVEL IV Diagnosis: Chronic pain syndrome[ICD10: G89.4] Diagnosis: Generalized anxiety disorder[ICD10: F41.1] Diagnosis: Major depressive disorder, single episode, moderate[ICD10: F32.1] Diagnosis: Other hydrocele[ICD10: N43.2] [facility] MD, [facility] CPT-4 : 72805 03/11/2018 96375 EST. PATIENT, LEVEL IV Diagnosis: Chronic pain syndrome[ICD10: G89.4] Diagnosis: Low back pain[ICD10: M54.5] Diagnosis: Generalized anxiety disorder[ICD10: F41.1] Diagnosis: Major depressive disorder, single episode, moderate[ICD10: F32.1] Diagnosis: Left lower quadrant pain[ICD10: R10.32] Al[facility] MD, [facility] CPT-4: 00330 01/18/2018 88413 EST. PATIENT, LEVEL IV Diagnosis: Chronic pain syndrome[ICD10: G89.4] Diagnosis: Low back pain[ICD10: M54.5] Diagnosis: Generalized anxiety disorder[ICD10: F41.1] Diagnosis: Major depressive disorder, single episode, moderate[ICD10: F32.1] [facility] MD, [facility] CPT-4: 66326 12/10/2017 21223 EST. PATIENT, LEVEL IV Diagnosis: Chronic pain syndrome[ICD10: G89.4] Diagnosis: Low back pain[ICD10: M54.5] Diagnosis: Generalized anxiety disorder[ICD10: F41.1] Diagnosis: Major depressive disorder, single episode, moderate[ICD10: F32.1] [facility] MD, [facility] CPT-4: 65108 11/09/2017 83278 EST. PATIENT, LEVEL IV Diagnosis: Chronic pain syndrome[ICD10: G89.4] Diagnosis: Low back pain[ICD10: M54.5] Diagnosis: Generalized anxiety disorder[ICD10: F41.1] Diagnosis: Major depressive disorder, single episode, moderate[ICD10: F32.1] [facility] MD, [facility] CPT-4: 54638 10/19/2017 OFFICE VISIT, NEW - LEVEL 4 Diagnosis: Chronic pain syndrome[ICD10: G89.4] Diagnosis: Low back pain[ICD10: M54.5] Diagnosis: Headache[ICD10: R51] Diagnosis: Generalized anxiety disorder[ICD10: F41.1] Diagnosis: Major depressive disorder, single episode, moderate[ICD10: F32.1] Diagnosis: Gastro-esophageal reflux disease without esophagitis[ICD10: K21.9] Diagnosis: Paroxysmal atrial fibrillation[ICD10: I48.0] [facility] CPT-4: 17422 09/30/2017 Plan of Care Planned Activity Notes [...] of control. 08/26/2018 Appointment: Alissa Jimenez WPtel: [address] [place], [place] [id number] (15 min) Moderate 08/26/2018 Patient Education: Patient [...] [place] 08/19/2018 [facility]ment[facility] [phone] [facility] [place] [place] (30 min) Complex 08/19/2018 Patient Education: [...] medication. 07/21/2018 Appointment: [facility] [phone] [facility] [place] [place] (15 min) Moderate 07/21/2018 Patient Education: Patient Medication Summary Completed 07/21/2018 Patient Education: Depression Completed 07/21/2018 Visit Plan: Bronchitis - acute case of bronchitis identified. Pt has been given antibiotics, steroids as appropriate, and pt has been instructed to call if symptoms are not improved, or if symptoms acutely worsen. 06/27/2018 Appointment: Alissa Jimenez WPtel: [phone] [facility] (15 min) Moderate 06/27/2018 Patient Education: Patient [...] medication. 06/20/2018 Appointment: [facility] [phone] [facility] [place] (15 min) Moderate 06/20/2018 Patient Education: Patient [...] of over-medication. 05/09/2018 Appointment: [facility] [phone] [facility] [place] (15 min) Moderate 05/09/2018 Patient Education: Patient Medication Summary Completed 05/09/2018 Appointment: [facility] Jimenez [facility] [phone] [facility] [place] [place] (30 min) Complex 03/22/2018 Referral: External, Ordering Provider they will call him for appt Initiated Care Plan: Referral Order SNOMED-CT : [id number] Pending 03/13/2018 Visit Plan: Chronic Pain Syndrome [...] to urology 03/11/2018 Appointment: Al[facility] Jimenez [facility] [phone] [facility] [place] (15 min) Moderate 03/11/2018 Patient Education: [...] indicated. 01/18/2018 Appointment: [facility] [phone] [facility] (15 min) Moderate 01/18/2018 Patient Education: Patient [...] medications. 12/10/2017 Appointment: Alissa Jimenez WPtel: [phone] [facility] (30 min) Complex 12/10/2017 Patient Education: Patient Medication Summary Completed 12/10/2017 Appointment: Alissa Jimenez WPtel: [phone] [facility] (30 min) Complex 12/07/2017 App[facility]ment: [phone] [facility] (15 min) Moderate 11/19/2017 Visit Plan: Chronic [...] medications. 10/19/2017 Appointment: [facility] [phone] [facility] ([place] min) Complex 10/19/2017 Patient Education: Patient [...] uncontrolled. 09/30/2017 Appointment: [facility] Jim[phone] [facility] New Patient 09/30/2017 Patient Education: Patient Medication [...] Referral to urology - Todd Rodrigez fax [phone] attention caleb FRITZ in [place] . Anxiety - the patient has uncontrolled [...] alcohol because it will cause vomiting Call [phone] to get your thyroid ultrasound scheduled. . [...]
--- OUTSIDE RECORDS SUMMARY | 2018-11-24 05:03 | XMS REPORT | CCD ---
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 Name Role Phone PP Unavailable CCM Unavailable Summary Purpose Interface Exchange Insurance Providers Payer name Policy type / Coverage type Covered constitution party ID Effective Begin Date Effective End Date [employer] - Medicaid [id number] 2017 Unknown Family history Father Diagnosis Age At Onset No Known Diseases N/A Mother Diagnosis Age At Onset No Known Diseases N/A Social History Social History Element Codes Description Effective Dates Marital status Unknown Single 09/30/2017 Employment Unknown Currently unemployed 09/30/[address]: 1633672 Former smoker 09/30/[address]: 827176587 Never drinks alcohol 09/30/2017 On Disability Unknown Yes 09/30/2017 Allergies, Adverse Reactions, Alerts Substance Reaction Codes Entered Date Inactivated Date Status NO KNOWN DRUG ALLERGIES Unknown 09/30/2017 No Inactive Date Active Past Medical History Illness Codes Condition Status Onset Date Resolved Date Chronic pain syndrome ICD-9: 338.4 ICD-10: G89.4 Active 09/30/2017 Unknown Dysphagia, oropharyngeal phase ICD-9: 787.22 ICD-10: R13.12 Active 08/19/2018 Unknown Essential (primary) hypertension ICD-9: 401.1 ICD-10: I10 Active 05/09/2018 Unknown Generalized anxiety disorder ICD-9: 300.00 ICD-10: F41.1 Active 09/30/2017 Unknown Major depressive disorder, single episode, moderate ICD-9: 296.22 ICD-10: F32.1 Active 09/30/2017 Unknown Other specified hypothyroidism ICD-9: 244.8 ICD-10: E03.8 Active 08/19/2018 Unknown Supraventricular tachycardia ICD-9: 427.89 ICD-10: I47.1 Active 08/19/2018 Unknown Other hydrocele ICD-9 : 603.8 ICD-10: [...] syndrome ICD-9: 338.4 ICD-10: G89.4 09/30/2017 Active Dysphagia, oropharyngeal phase ICD-9: 787.22 ICD-10: R13.12 08/19/2018 Active Essential (primary) hypertension ICD-9: 401.1 ICD-10: I10 05/09/2018 Active Generalized anxiety disorder ICD-9: 300.00 ICD-10: F41.1 09/30/2017 Active Major depressive disorder, single episode, moderate ICD-9: 296.22 ICD-10: F32.1 09/30/2017 Active Other specified hypothyroidism ICD-9: 244.8 ICD-10: E03.8 08/19/2018 Active Supraventricular tachycardia ICD-9: 427.89 ICD-10: I47.1 08/19/2018 Active Other hydrocele ICD-9 : 603.8 ICD-10: [...] Start Date Stop Date Status Fill Instructions metoprolol succinate ER 25 mg tablet,extended release 24 hr RxNorm: 780987 1/2 Tablet(s) PO daily 08/19/2018 09/17/2018 Active oxycodone 5 mg tablet RxNorm: 6528840 1 Tablet(s) PO QID as needed for pain 08/02/2018 08/31/2018 Active alprazolam 1 mg tablet RxNorm: 912184 1 Tablet(s) PO TID as needed anxiety 08/02/2018 08/31/2018 Active Levothroid 25 mcg tablet RxNorm: 909722 1 Tablet(s) PO daily No Stop Date Active alprazolam 1 mg tablet RxNorm: 816487 1 Tablet(s) PO TID as needed anxiety 07/05/2018 08/01/2018 Inactive oxycodone 5 mg tablet RxNorm: 2799439 1 Tablet(s) PO QID as needed for pain 07/05/2018 08/01/2018 Inactive Levothroid 25 mcg tablet RxNorm: 017628 1 Tablet(s) PO daily 08/01/2018 Inactive Kenalog 40 mg/mL suspension for injection RxNorm: 7630615 Milliliter(s) Inj 06/27/2018 06/27/2018 Inactive doxycycline hyclate 100 mg tablet RxNorm: 7227334 1 Tablet(s) PO BID 06/27/2018 07/06/2018 Inactive alprazolam 1 mg tablet RxNorm: 367759 1 Tablet(s) PO TID as needed anxiety 06/08/2018 07/04/2018 Inactive Cymbalta 30 mg capsule,delayed release RxNorm: 495497 1 Capsule(s) PO daily 06/07/2018 06/08/2018 Inactive Bystolic 5 mg tablet RxNorm: 336758 1 Tablet(s) PO daily 201706/09/2018 Inactive oxycodone 5 mg tablet RxNorm: 4520210 1 Tablet(s) PO QID as needed for pain 06/07/2018 07/04/2018 Inactive Cymbalta 30 mg capsule,delayed release RxNorm: 826408 1 Capsule(s) PO daily 05/09/2018 06/06/2018 Inactive alprazolam 1 mg tablet RxNorm: 999049 1 Tablet(s) PO TID as needed anxiety 04/05/2018 05/03/2018 Inactive oxycodone 5 mg tablet RxNorm: 3815013 1 Tablet(s) PO QID as needed for pain 04/05/2018 05/04/2018 Inactive cyclobenzaprine 5 mg tablet RxNorm: 325706 1 Tablet(s) PO TID as needed muscle spasms 03/18/2018 06/01/2018 Inactive mupirocin 2 % topical cream RxNorm: 572806 1 Application TOP BID 03/11/2018 06/08/2018 Inactive hydrocodone 5 mg-acetaminophen 325 mg tablet RxNorm: 552209 1 Tablet(s) PO TID as needed for pain 03/10/2018 04/04/2018 Inactive alprazolam 1 mg tablet RxNorm: 469447 1 Tablet(s) PO TID as needed anxiety 03/10/2018 04/04/2018 Inactive hydrocodone 5 mg-acetaminophen 325 mg tablet RxNorm: 065658 1 Tablet(s) PO TID as needed for pain 02/09/2018 03/09/2018 Inactive alprazolam 1 mg tablet RxNorm: 227604 1 Tablet(s) PO TID as needed anxiety 02/09/2018 03/09/2018 Inactive alprazolam 1 mg tablet RxNorm: 931535 1 Tablet(s) PO TID as needed anxiety 01/10/2018 02/08/2018 Inactive pantoprazole 40 mg tablet,delayed release RxNorm: 460991 1 Tablet(s) PO daily 12/27/2017 06/08/2018 Inactive pantoprazole 40 mg tablet,delayed release RxNorm: 433693 1 Tablet(s) PO daily 12/27/2017 12/26/2017 Inactive hydrocodone 5 mg-acetaminophen 325 mg tablet RxNorm: 545925 1 Tablet(s) PO TID as needed for pain 12/09/2017 01/07/2018 Inactive alprazolam 1 mg tablet RxNorm: 498170 1 Tablet(s) PO TID as needed anxiety 12/09/2017 01/07/2018 Inactive alprazolam 1 mg tablet RxNorm: 993578 1 Tablet(s) PO TID as needed anxiety 11/09/2017 12/08/2017 Inactive hydrocodone 5 mg-acetaminophen 325 mg tablet RxNorm: 771290 1 Tablet(s) PO TID as needed for pain 11/09/2017 12/08/2017 Inactive prednisone 20 mg tablet RxNorm: 101186 2 Tablet(s) PO daily 10/24/2017 Inactive hydrocodone 5 mg-acetaminophen 325 mg tablet RxNorm: 026151 1 Tablet(s) PO TID as needed for pain 10/14/2017 2017 Inactive Eliquis 5 mg tablet RxNorm: 0602039 1 Tablet(s) PO BID No Start Date Active carvedilol 6.25 mg tablet RxNorm: 676461 1 Tablet(s) PO BID No Start Date Active Levothroid 25 mcg tablet RxNorm: 609380 1 Tablet(s) PO daily No Start Date 07/04/2018 Inactive hydrocodone 5 mg-acetaminophen 325 mg tablet RxNorm: 809980 1 Tablet(s) PO TID as needed for pain No Start Date 10/13/2017 Inactive cyclobenzaprine 5 mg tablet RxNorm: 555178 1 Tablet(s) PO TID as needed muscle spasms No Start Date 03/17/2018 Inactive Epclusa 400 mg-100 mg tablet RxNorm: 9137484 1 Tablet(s) PO daily No Start Date 07/11/2018 Inactive pantoprazole 40 mg tablet,delayed release RxNorm: 064237 1 Tablet(s) PO daily No Start Date 12/26/2017 Inactive alprazolam 1 mg tablet RxNorm: 787116 1 Tablet(s) PO TID as needed anxiety No Start Date 2017 Inactive flecainide 100 mg tablet RxNorm: 569534 1 Tablet(s) PO BID No Start Date 06/08/2018 Inactive metoprolol succinate ER 50 mg tablet,extended release 24 hr RxNorm: 655649 1/2 Tablet(s) PO daily managed by Dr Wilder No Start Date 06/08/2018 Inactive duloxetine 60 mg capsule,delayed release RxNorm: 627907 2 Capsule(s) PO daily No Start Date 11/30/2017 Inactive Medication Administered Medication Codes Instructions Start Date Status Kenalog 40 mg/mL suspension for injection RxNorm: 5702931 Milliliter 06/27/2018 No longer Active Immunizations Vaccine Codes Date Status Influenza CVX: 141 06/20/2018 completed Assessments Condition Codes Effective Dates Other specified hypothyroidism ICD-10: E03.8 ICD-9: 244.8 08/19/2018 Essential (primary) hypertension ICD-10: I10 ICD-9: 401.1 08/19/2018 Generalized anxiety disorder ICD-10: F41.1 ICD-9: 300.00 08/19/2018 Chronic pain syndrome ICD-10: G89.4 ICD-9: 338.4 08/19/2018 Dysphagia, oropharyngeal phase ICD-10: R13.12 ICD-9: 787.22 08/19/2018 Major depressive disorder, single episode, moderate ICD-10: F32.1 ICD-9: 296.22 08/19/2018 Supraventricular tachycardia ICD-10: I47.1 ICD-9: 427.89 08/19/2018 Acute bronchitis due to other specified [...] Visit Effective Dates Notes Hospital Follow Up 08/19/2018 low back pain 07/21/2018 cough 06/27/2018 Hospital Follow Up 06/20/2018 low back pain 05/09/2018 headache 03/11/2018 headache 01/18/2018 headache 12/10/2017 headache 11/09/2017 low back pain 10/19/2017 headache 09/30/2017 Results No Results data Review of Systems System Result Effective Dates Constitutional No recent illness 2017 Constitutional No [...] mood 09/30/2017 None Full Exam - General 1995 Psychiatric mood and affect Affect: flat 09/30/2017 None Procedures Procedure Codes Date THER/PROPH/DIAG INJ SC/IM CPT-4: 29082 06/27/2018 TRIAMCINOLONE ACET INJ NOS CPT-4: J3301 06/27/2018 IMMUNIZATION ADMIN CPT -4: 62692 06/20/2018 FLU VACC PRSV FREE INC ANTIG CPT-4: 42157 06/20/2018 Vital Signs Date Vital 08/19/2018 Blood Pressure 1: 106/62 Code : 8480-6 BMI: 30.2 Code : 49547-4 Heart Rate 1 : 86 bpm Height: 6' SpO2: 94% Temperature: 36.5 (C) / 97.7 (F) Weight: 223 lbs 07/21/2018 Blood Pressure 1: 112/64 Code : 8480-6 BMI: 30.7 Code : 85463-3 Heart Rate 1 : 93 bpm Height: 6' SpO2: 96% Weight: 226 lbs 06/27/2018 Blood Pressure 1: 106/56 Code : 8480-6 Heart Rate 1: 78 bpm Height: SpO2: 96% Temperature: 36.7 (C) / 98.1 (F) Weight: 228 lbs 06/20/2018 Blood Pressure 1: 130/76 Code : 8480-6 BMI: 30.7 Code : 93566-8 Heart Rate 1 : 83 bpm Height: 6' SpO2: 96% Weight: 226 lbs 05/20/2018 Blood Pressure 1: 124/70 Code : 8480-6 Heart Rate 1: 88 bpm Height: 6' 05/09/2018 Blood Pressure 1: 126/82 Code : 8480-6 BMI: 30.7 Code : 26711-6 Heart Rate 1 : 102 bpm Height: 6' SpO2: 97% Weight: 226 lbs 03/11/2018 Blood Pressure 1: 128/72 Code : 8480-6 BMI: 30.7 Code : 59698-6 Heart Rate 1 : 90 bpm Height: 6' SpO2: 96% Weight: 226 lbs 01/18/2018 Blood Pressure 1: 138/70 Code : 8480-6 BMI: 30.5 Code : 82008-8 Heart Rate 1 : 80 bpm Height: 6' SpO2: 95% Weight: 225 lbs 12/10/2017 Blood Pressure 1: 140/64 Code : 8480-6 BMI: 30.7 Code : 09974-0 Heart Rate 1 : 71 bpm Height: 6' SpO2: 96% Weight: 226 lbs 11/09/2017 Blood Pressure 1: 102/68 Code : 8480-6 Heart Rate 1: 90 bpm Height: 6' SpO2: 97% Weight: 10/19/2017 Blood Pressure 1: 136/82 Code : 8480-6 Heart Rate 1: 98 bpm Height: SpO2: 96% Weight: 09/30/2017 Blood Pressure 1: 130/88 Code : 8480-6 BMI: 31.3 Code : 51364-8 Heart Rate 1 : 101 bpm Height: 6' SpO2: 98% Weight: 231 lbs Functional Status No Functional Status data History of Present Illness Symptom Name Status Result Effective Date Notes Hospital Follow Up _ cardiac disease 08/19/2018 [...] data Encounters Encounter Performer Location Codes Date 04888 EST. PATIENT, LEVEL III Diagnosis: Generalized anxiety disorder[ICD10: F41.1] Diagnosis: Major depressive disorder, single episode, moderate[ICD10: F32.1] Diagnosis: Chronic pain syndrome[ICD10: G89.4] Diagnosis: Essential (primary) hypertension[ICD10: I10] Diagnosis: Other specified hypothyroidism[ICD10: E03.8] Diagnosis: Dysphagia, oropharyngeal phase[ICD10: R13.12] Diagnosis: Supraventricular tachycardia[ICD10: I47.1] Alissa Cowan MD, [facility] CPT-4: 65279 08/19/2018 71408 EST. PATIENT, LEVEL IV Diagnosis: Generalized anxiety disorder[ICD10: F41.1] Diagnosis: Major depressive disorder, single episode, moderate[ICD10: F32.1] Diagnosis: Chronic pain syndrome[ICD10: G89.4] Diagnosis: Essential (primary) hypertension[ICD10: I10] Alissa Cowan MD, [facility] CPT-4: 25887 07/21/2018 41505 EST. PATIENT, LEVEL IV Diagnosis: Acute bronchitis due to other specified organisms[ICD10: J20.8] Alissa Cowan MD, [facility] CPT-4: 49603 06/27/2018 75850 EST. PATIENT, LEVEL III Diagnosis: Paroxysmal atrial fibrillation[ICD10: I48.0] Diagnosis: Chronic pain syndrome[ICD10: G89.4] Diagnosis: Essential (primary) hypertension[ICD10: I10] Diagnosis: Encounter for immunization[ICD10: Z23] Alissa Cowan MD, [facility] CPT-4: 98943 06/20/2018 (65400) Miscellaneous no charge Diagnosis: Generalized anxiety disorder[ICD10: F41.1] Alissa Cowan MD, [facility] CPT-4: 37410 05/20/2018 31427 EST. PATIENT, LEVEL IV Diagnosis: Generalized anxiety disorder[ICD10: F41.1] Diagnosis: Major depressive disorder, single episode, moderate[ICD10: F32.1] Diagnosis: Other hydrocele[ICD10: N43.2] Diagnosis: Chronic pain syndrome[ICD10: G89.4] Diagnosis: Essential (primary) hypertension[ICD10: I10] Alissa Cowan MD, [facility] CPT-4: 46524 05/09/2018 57079 EST. PATIENT, LEVEL IV Diagnosis: Chronic pain syndrome[ICD10: G89.4] Diagnosis: Generalized anxiety disorder[ICD10: F41.1] Diagnosis: Major depressive disorder, single episode, moderate[ICD10: F32.1] Diagnosis: Other hydrocele[ICD10: N43.2] Alissa Cowan MD, [facility] CPT-4 : 17505 03/11/2018 22676 EST. PATIENT, LEVEL IV Diagnosis: Chronic pain syndrome[ICD10: G89.4] Diagnosis: Low back pain[ICD10: M54.5] Diagnosis: Generalized anxiety disorder[ICD10: F41.1] Diagnosis: Major depressive disorder, single episode, moderate[ICD10: F32.1] Diagnosis: Left lower quadrant pain[ICD10: R10.32] Alissa Cowan MD, [facility] CPT-4: 70336 01/18/2018 62519 EST. PATIENT, LEVEL IV Diagnosis: Chronic pain syndrome[ICD10: G89.4] Diagnosis: Low back pain[ICD10: M54.5] Diagnosis: Generalized anxiety disorder[ICD10: F41.1] Diagnosis: Major depressive disorder, single episode, moderate[ICD10: F32.1] Alissa Cowan MD, [facility] CPT-4: 38343 12/10/2017 96991 EST. PATIENT, LEVEL IV Diagnosis: Chronic pain syndrome[ICD10: G89.4] Diagnosis: Low back pain[ICD10: M54.5] Diagnosis: Generalized anxiety disorder[ICD10: F41.1] Diagnosis: Major depressive disorder, single episode, moderate[ICD10: F32.1] Alissa Cowan MD, [facility] CPT-4: 53990 11/09/2017 01770 EST. PATIENT, LEVEL IV Diagnosis: Chronic pain syndrome[ICD10: G89.4] Diagnosis: Low back pain[ICD10: M54.5] Diagnosis: Generalized anxiety disorder[ICD10: F41.1] Diagnosis: Major depressive disorder, single episode, moderate[ICD10: F32.1] Alissa Cowan MD, [facility] CPT-4: 89245 10/19/2017 OFFICE VISIT, NEW - LEVEL 4 Diagnosis: Chronic pain syndrome[ICD10: G89.4] Diagnosis: Low back pain[ICD10: M54.5] Diagnosis: Headache[ICD10: R51] Diagnosis: Generalized anxiety disorder[ICD10: F41.1] Diagnosis: Major depressive disorder, single episode, moderate[ICD10: F32.1] Diagnosis: Gastro-esophageal reflux disease without esophagitis[ICD10: K21.9] Diagnosis: Paroxysmal atrial fibrillation[ICD10: I48.0] [facility] CPT-4: 57940 09/30/2017 Plan of Care Planned Activity Notes Codes Status Date Visit Plan: Chronic Depression and anxiety - [...] thyroid US 08/19/2018 Appointment: Alissa Jimenez WPtel: [address] [place], [place] [id number] (30 min) [facility] 08/19/2018 Patient Education: Patient Medication Summary Completed [...] off pain medication. 07/21/2018 Appointment: Alissa Jimeneztel: [phone] [facility] (15 min) Moderate 07/21/2018 Patient Education: Patient Medication Summary Completed 07/21/2018 Patient Education: Depression Completed 07/21/2018 Visit Plan: Bronchitis - acute case of bronchitis identified. Pt has been given antibiotics, steroids as appropriate, and pt has been instructed to call if symptoms are not improved, or if symptoms acutely worsen. 06/27/2018 Appointment: Alissa Jimeneztel: [phone] [facility] (15 min) Moderate 06/27/2018 [...] over- medication. 06/20/2018 Appointment: Alissa Jimenez WPtel: [phone] [facility] (15 min) Moderate 06/20/2018 Patient Education: Patient [...] over-medication. 05/09/2018 [facility]ment[phone] ([facility] Moderate 05/09/2018 Patient Education: Patient Medication Summary Completed 05/09/2018 App[facility]ment: [facility] [phone] [facility] ([facility] min) Complex 03/22/2018 Referral: External, Ordering Provider they will call him for appt Initiated Care Plan: Referral Order SNOMED-CT : [id number] Pending 03/13/2018 Visit Plan: Chronic Pain Syndrome [...] to urology 03/11/2018 Appointment: [phone] [id number] [place] (15 min) Moderate 03/11/2018 [...] as indicated. 01/18/2018 Appointment: Alissa Jimenez WPtel: [facility] [place] (15 min) Moderate 01/18/2018 Patient Education: Patient [...] current medications. 12/10/2017 Appointment: Alissa Jimenez WPtel: [facility] [place] [facility] [place] (30 min) Complex 12/10/2017 Patient Education: Patient Medication Summary Completed 12/10/2017 Appointment: Alissa Jimenez WPtel: [facility] [place] [place] (30 min) Complex 12/07/2017 Appointment: Alissa Jimenez WPtel: [facility] [place] [place] (15 min) Moderate 11/19/2017 Visit Plan: [...] current medications. 10/19/2017 Appointment: Alissa Jimenez WPtel: [address] [place], [place] [phone] (30 min) [facility] 10/19/2017 Patient Education: Patient Medication Summary [...] uncontrolled. 09/30/2017 Appointment: [phone] [facility] [place] New Patient 09/30/2017 Patient Education: Patient [...] Referral to urology - Todd Rodrigez fax [phone] attention caleb FRITZ in [place] . Anxiety - the patient has uncontrolled [...] and dysphagia - will order thyroid US . Chronic Pain Syndrome - pt has [...]
--- OUTSIDE RECORDS SUMMARY | 2018-11-24 05:04 | XMS REPORT | CCD ---
Author Author Alissa Jimenez Organization [facility] Address [address] [place] [address] Phone Care Team Providers Care Floor Supervisor Name Role Phone PP Unavailable CCM Unavailable Summary Purpose Interface Exchange Insurance Providers Payer name Policy type / Coverage type Covered green party ID Effective Begin Date Effective End Date [employer] - Medicaid [id number] 2017 Unknown Family history Father Diagnosis Age At Onset No Known Diseases N/A Mother Diagnosis Age At Onset No Known Diseases N/A Social History Social History Element Codes Description Effective Dates Marital status Unknown Single 09/30/2017 Employment Unknown Currently unemployed 09/30/[address]: 9035233 Former smoker 09/30/[address]: 337662419 Never drinks alcohol 09/30/2017 On Disability Unknown [...] 25 mg tablet,extended release 24 hr RxNorm: 755182 1/2 Tablet(s) PO daily 08/19/2018 09/17/2018 Active oxycodone 5 mg tablet RxNorm: 2940281 1 Tablet(s) PO QID as needed for pain 08/02/2018 08/31/2018 Active alprazolam 1 mg tablet RxNorm: 190830 1 Tablet(s) PO TID as needed anxiety 08/02/2018 08/31/2018 Active Levothroid 25 mcg tablet RxNorm: 363666 1 Tablet(s) PO daily No Stop Date Active alprazolam 1 mg tablet RxNorm: 071470 1 Tablet(s) PO TID as needed anxiety 07/05/2018 08/01/2018 Inactive oxycodone 5 mg tablet RxNorm: 2231165 1 Tablet(s) PO QID as needed for pain 07/05/2018 08/01/2018 Inactive Levothroid 25 mcg tablet RxNorm: 723559 1 Tablet(s) PO daily 08/01/2018 Inactive Kenalog 40 mg/mL suspension for injection RxNorm: 7037878 Milliliter(s) Inj 06/27/2018 06/27/2018 Inactive doxycycline hyclate 100 mg tablet RxNorm: 6590611 1 Tablet(s) PO BID 06/27/2018 07/06/2018 Inactive alprazolam 1 mg tablet RxNorm: 566750 1 Tablet(s) PO TID as needed anxiety 06/08/2018 07/04/2018 Inactive Cymbalta 30 mg capsule,delayed release RxNorm: 342385 1 Capsule(s) PO daily 06/07/2018 06/08/2018 Inactive Bystolic 5 mg tablet RxNorm: 166217 1 Tablet(s) PO daily 201706/09/2018 Inactive oxycodone 5 mg tablet RxNorm: 5196518 1 Tablet(s) PO QID as needed for pain 06/07/2018 07/04/2018 Inactive Cymbalta 30 mg capsule,delayed release RxNorm: 748807 1 Capsule(s) PO daily 05/09/2018 06/06/2018 Inactive alprazolam 1 mg tablet RxNorm: 413683 1 Tablet(s) PO TID as needed anxiety 04/05/2018 05/03/2018 Inactive oxycodone 5 mg tablet RxNorm: 7446132 1 Tablet(s) PO QID as needed for pain 04/05/2018 05/04/2018 Inactive cyclobenzaprine 5 mg tablet RxNorm: 103616 1 Tablet(s) PO TID as needed muscle spasms 03/18/2018 06/01/2018 Inactive mupirocin 2 % topical cream RxNorm: 744234 1 Application TOP BID 03/11/2018 06/08/2018 Inactive hydrocodone 5 mg-acetaminophen 325 mg tablet RxNorm: 527524 1 Tablet(s) PO TID as needed for pain 03/10/2018 04/04/2018 Inactive alprazolam 1 mg tablet RxNorm: 055481 1 Tablet(s) PO TID as needed anxiety 03/10/2018 04/04/2018 Inactive hydrocodone 5 mg-acetaminophen 325 mg tablet RxNorm: 480373 1 Tablet(s) PO TID as needed for pain 02/09/2018 03/09/2018 Inactive alprazolam 1 mg tablet RxNorm: 167219 1 Tablet(s) PO TID as needed anxiety 02/09/2018 03/09/2018 Inactive alprazolam 1 mg tablet RxNorm: 129611 1 Tablet(s) PO TID as needed anxiety 01/10/2018 02/08/2018 Inactive pantoprazole 40 mg tablet,delayed release RxNorm: 048288 1 Tablet(s) PO daily 12/27/2017 06/08/2018 Inactive pantoprazole 40 mg tablet,delayed release RxNorm: 216144 1 Tablet(s) PO daily 12/27/2017 12/26/2017 Inactive hydrocodone 5 mg-acetaminophen 325 mg tablet RxNorm: 477837 1 Tablet(s) PO TID as needed for pain 12/09/2017 01/07/2018 Inactive alprazolam 1 mg tablet RxNorm: 941032 1 Tablet(s) PO TID as needed anxiety 12/09/2017 01/07/2018 Inactive alprazolam 1 mg tablet RxNorm: 024012 1 Tablet(s) PO TID as needed anxiety 11/09/2017 12/08/2017 Inactive hydrocodone 5 mg-acetaminophen 325 mg tablet RxNorm: 423282 1 Tablet(s) PO TID as needed for pain 11/09/2017 12/08/2017 Inactive prednisone 20 mg tablet RxNorm: 332197 2 Tablet(s) PO daily 10/24/2017 Inactive hydrocodone 5 mg-acetaminophen 325 mg tablet RxNorm: 624146 1 Tablet(s) PO TID as needed for pain 10/14/2017 2017 Inactive Eliquis 5 mg tablet RxNorm: 4592943 1 Tablet(s) PO BID No Start Date Active carvedilol 6.25 mg tablet RxNorm: 570120 1 Tablet(s) PO BID No Start Date Active Levothroid 25 mcg tablet RxNorm: 916959 1 Tablet(s) PO daily No Start Date 07/04/2018 Inactive hydrocodone 5 mg-acetaminophen 325 mg tablet RxNorm: 450916 1 Tablet(s) PO TID as needed for pain No Start Date 10/13/2017 Inactive cyclobenzaprine 5 mg tablet RxNorm: 608151 1 Tablet(s) PO TID as needed muscle spasms No Start Date 03/17/2018 Inactive Epclusa 400 mg-100 mg tablet RxNorm: 3075620 1 Tablet(s) PO daily No Start Date 07/11/2018 Inactive pantoprazole 40 mg tablet,delayed release RxNorm: 079420 1 Tablet(s) PO daily No Start Date 12/26/2017 Inactive alprazolam 1 mg tablet RxNorm: 716613 1 Tablet(s) PO TID as needed anxiety No Start Date 2017 Inactive flecainide 100 mg tablet RxNorm: 951059 1 Tablet(s) PO BID No Start Date 06/08/2018 Inactive metoprolol succinate ER 50 mg tablet,extended release 24 hr RxNorm: 148797 1/2 Tablet(s) PO daily managed by Dr Wilder No Start Date 06/08/2018 Inactive duloxetine 60 mg capsule,delayed release RxNorm: 149150 2 Capsule(s) PO daily No Start Date 11/30/2017 Inactive Medication Administered Medication Codes Instructions Start Date Status Kenalog 40 mg/mL suspension for injection RxNorm: 8738295 Milliliter 06/27/2018 No longer Active Immunizations Vaccine [...] Procedure Codes Date THER/PROPH/DIAG INJ SC/IM CPT-4: 00613 06/27/2018 TRIAMCINOLONE ACET INJ NOS CPT-4: J3301 06/27/2018 IMMUNIZATION ADMIN CPT -4: 95693 06/20/2018 FLU VACC PRSV FREE INC ANTIG CPT-4: 96161 06/20/2018 Vital Signs Date Vital 08/19/2018 Blood Pressure 1: 106/62 Code : 8480-6 BMI: 30.2 Code : 64646-8 Heart Rate 1 : 86 bpm Height: 6' SpO2: 94% Temperature: 36.5 (C) / 97.7 (F) Weight: 223 lbs 07/21/2018 Blood Pressure 1: 112/64 Code : 8480-6 BMI: 30.7 Code : 98001-1 Heart Rate 1 : 93 bpm Height: 6' SpO2: 96% Weight: 226 lbs 06/27/2018 Blood Pressure 1: 106/56 Code : 8480-6 Heart Rate 1: 78 bpm Height: SpO2: 96% Temperature: 36.7 (C) / 98.1 (F) Weight: 228 lbs 06/20/2018 Blood Pressure 1: 130/76 Code : 8480-6 BMI: 30.7 Code : 18731-1 Heart Rate 1 : 83 bpm Height: 6' SpO2: 96% Weight: 226 lbs 05/20/2018 Blood Pressure 1: 124/70 Code : 8480-6 Heart Rate 1: 88 bpm Height: 6' 05/09/2018 Blood Pressure 1: 126/82 Code : 8480-6 BMI: 30.7 Code : 28522-1 Heart Rate 1 : 102 bpm Height: 6' SpO2: 97% Weight: 226 lbs 03/11/2018 Blood Pressure 1: 128/72 Code : 8480-6 BMI: 30.7 Code : 50227-7 Heart Rate 1 : 90 bpm Height: 6' SpO2: 96% Weight: 226 lbs 01/18/2018 Blood Pressure 1: 138/70 Code : 8480-6 BMI: 30.5 Code : 52505-1 Heart Rate 1 : 80 bpm Height: 6' SpO2: 95% Weight: 225 lbs 12/10/2017 Blood Pressure 1: 140/64 Code : 8480-6 BMI: 30.7 Code : 24253-2 Heart Rate 1 : 71 bpm Height: 6' SpO2: 96% Weight: 226 lbs 11/09/2017 Blood Pressure 1: 102/68 Code : 8480-6 Heart Rate 1: 90 bpm Height: 6' SpO2: 97% Weight: 10/19/2017 Blood Pressure 1: 136/82 Code : 8480-6 Heart Rate 1: 98 bpm Height: SpO2: 96% Weight: 09/30/2017 Blood Pressure 1: 130/88 Code : 8480-6 BMI: 31.3 Code : 22209-2 Heart Rate 1 : 101 bpm Height: [...] data Encounters Encounter Performer Location Codes Date 21343 EST. PATIENT, LEVEL III Diagnosis: Generalized anxiety disorder[ICD10: F41.1] Diagnosis: Major depressive disorder, single episode, moderate[ICD10: F32.1] Diagnosis: Chronic pain syndrome[ICD10: G89.4] Diagnosis: Essential (primary) hypertension[ICD10: I10] Diagnosis: Other specified hypothyroidism[ICD10: E03.8] Diagnosis: Dysphagia, oropharyngeal phase[ICD10: R13.12] Diagnosis: Supraventricular tachycardia[ICD10: I47.1] Alissa Cowan MD, [facility] CPT-4: 13926 08/19/2018 61722 EST. PATIENT, LEVEL IV Diagnosis: Generalized anxiety disorder[ICD10: F41.1] Diagnosis: Major depressive disorder, single episode, moderate[ICD10: F32.1] Diagnosis: Chronic pain syndrome[ICD10: G89.4] Diagnosis: Essential (primary) hypertension[ICD10: I10] Alissa Cowan MD, [facility] CPT-4: 43003 07/21/2018 03080 EST. PATIENT, LEVEL IV Diagnosis: Acute bronchitis due to other specified organisms[ICD10: J20.8] Alissa Cowan MD, [facility] CPT-4: 17459 06/27/2018 91522 EST. PATIENT, LEVEL III Diagnosis: Paroxysmal atrial fibrillation[ICD10: I48.0] Diagnosis: Chronic pain syndrome[ICD10: G89.4] Diagnosis: Essential (primary) hypertension[ICD10: I10] Diagnosis: Encounter for immunization[ICD10: Z23] Alissa Cowan MD, [facility] CPT-4: 93238 06/20/2018 ([id number]) Miscellaneous no charge Diagnosis: Generalized anxiety disorder[ICD10: F41.1] Alissa Cowan MD, [facility] CPT-4: 18281 05/20/2018 71157 EST. PATIENT, LEVEL IV Diagnosis: Generalized anxiety disorder[ICD10: F41.1] Diagnosis: Major depressive disorder, single episode, moderate[ICD10: F32.1] Diagnosis: Other hydrocele[ICD10: N43.2] Diagnosis: Chronic pain syndrome[ICD10: G89.4] Diagnosis: Essential (primary) hypertension[ICD10: I10] Alissa Cowan MD, [facility] CPT-4: 83379 05/09/2018 24161 EST. PATIENT, LEVEL IV Diagnosis: Chronic pain syndrome[ICD10: G89.4] Diagnosis: Generalized anxiety disorder[ICD10: F41.1] Diagnosis: Major depressive disorder, single episode, moderate[ICD10: F32.1] Diagnosis: Other hydrocele[ICD10: N43.2] Alissa Cowan MD, [facility] CPT-4 : 90880 03/11/2018 43460 EST. PATIENT, LEVEL IV Diagnosis: Chronic pain syndrome[ICD10: G89.4] Diagnosis: Low back pain[ICD10: M54.5] Diagnosis: Generalized anxiety disorder[ICD10: F41.1] Diagnosis: Major depressive disorder, single episode, moderate[ICD10: F32.1] Diagnosis: Left lower quadrant pain[ICD10: R10.32] Alissa Cowan MD, [facility] CPT-4: 63016 01/18/2018 84517 EST. PATIENT, LEVEL IV Diagnosis: Chronic pain syndrome[ICD10: G89.4] Diagnosis: Low back pain[ICD10: M54.5] Diagnosis: Generalized anxiety disorder[ICD10: F41.1] Diagnosis: Major depressive disorder, single episode, moderate[ICD10: F32.1] Alissa Cowan MD, [facility] CPT-4: 06351 12/10/2017 82079 EST. PATIENT, LEVEL IV Diagnosis: Chronic pain syndrome[ICD10: G89.4] Diagnosis: Low back pain[ICD10: M54.5] Diagnosis: Generalized anxiety disorder[ICD10: F41.1] Diagnosis: Major depressive disorder, single episode, moderate[ICD10: F32.1] Alissa Cowan MD, [facility] CPT-4: 98525 11/09/2017 21976 EST. PATIENT, LEVEL IV Diagnosis: Chronic pain syndrome[ICD10: G89.4] Diagnosis: Low back pain[ICD10: M54.5] Diagnosis: Generalized anxiety disorder[ICD10: F41.1] Diagnosis: Major depressive disorder, single episode, moderate[ICD10: F32.1] Alissa Cowan MD, [facility] CPT-4: 54140 10/19/2017 OFFICE VISIT, NEW - LEVEL 4 Diagnosis: Chronic pain syndrome[ICD10: G89.4] Diagnosis: Low back pain[ICD10: M54.5] Diagnosis: Headache[ICD10: R51] Diagnosis: Generalized anxiety disorder[ICD10: F41.1] Diagnosis: Major depressive disorder, single episode, moderate[ICD10: F32.1] Diagnosis: Gastro-esophageal reflux disease without esophagitis[ICD10: K21.9] Diagnosis: Paroxysmal atrial fibrillation[ICD10: I48.0] [facility] CPT-4: 90870 09/30/2017 Plan of Care Planned Activity Notes [...] thyroid US 08/19/2018 Appointment: Alissa Jimenez WPtel: [address] [place], [place] [id number] (30 min) [facility] 08/19/2018 Patient Education: Patient Medication Summary Completed [...] off pain medication. 07/21/2018 Appointment: Alissa Jimeneztel: [phone] [facility] (15 min) Moderate 07/21/2018 Patient Education: Patient Medication Summary Completed 07/21/2018 Patient Education: Depression Completed 07/21/2018 Visit Plan: Bronchitis - acute case of bronchitis identified. Pt has been given antibiotics, steroids as appropriate, and pt has been instructed to call if symptoms are not improved, or if symptoms acutely worsen. 06/27/2018 Appointment: Alissa Jimeneztel: [phone] [facility] (15 min) Moderate 06/27/2018 Patient Education: [...] over- medication. 06/20/2018 Appointment: Alissa Jimenez WPtel: [phone] [facility] (15 min) Moderate 06/20/2018 Patient Education: [...] over-medication. 05/09/2018 [phone] [facility] ([facility]) Moderate 05/09/2018 Patient Education: Patient Medication Summary Completed 05/09/2018 Appointment: [facility] [phone] [phone] (30 min) Complex 03/22/2018 Referral: External, Ordering Provider they will call him for appt Initiated Care Plan: Referral Order SNOMED-CT : [id number] Pending 03/13/2018 Visit Plan: Chronic Pain Syndrome [...] to urology 03/11/2018 Appointment: Alissa Jimenez [facility] [phone] [facility] [place] (15 min) Moderate 03/11/2018 Patient Education: [...] as indicated. 01/18/2018 Appointment: Alissa Jimenez WPtel: [facility] (15 min) Moderate 01/18/2018 Patient Education: [...] current medications. 12/10/2017 Appointment: Alissa Jimenez WPtel: [facility] [place] (30 min) Complex 12/10/2017 Patient Education: Patient Medication Summary Completed 12/10/2017 Appointment: Alissa Jimenez WPtel: [phone] [place] (30 min) Complex 12/07/2017 Appointment: Alissa Jimenze WPtel: [facility] [place] (15 min) Moderate 11/19/2017 Visit Plan: [...] current medications. 10/19/2017 Appointment: Alissa Jimenez WPtel: [address] [place], [place] [phone] (30 min) [facility] 10/19/2017 Patient Education: Patient Medication Summary Completed [...] uncontrolled. 09/30/2017 Appointment: [facility] Jimenez [facility]el[facility] [phone] [facility] [place] New Patient 09/30/2017 Patient Education: Patient [...] Referral to urology - Todd Rodrigez fax [phone] attention caleb FRITZ in [place] . Anxiety - the patient has uncontrolled [...]
--- OUTSIDE RECORDS SUMMARY | 2018-11-24 05:05 | XMS REPORT | CCD ---
Author Author Alissa Jimenez Organization [facility] Address [address] [place] [address] Phone Care Team Providers Care Service Technician Copier Name Role Phone PP Unavailable CCM Unavailable Summary Purpose Interface Exchange Insurance Providers Payer name Policy type / Coverage type Covered republican ID Effective Begin Date Effective End Date [employer] - Medicaid [id number] 2017 Unknown Family history Father Diagnosis Age At Onset No Known Diseases N/A Mother Diagnosis Age At Onset No Known Diseases N/A Social History Social History Element Codes Description Effective Dates Marital status Unknown Single 09/30/2017 Employment Unknown Currently unemployed 09/30/[address]: 7112207 Former smoker 09/30/[address]: 674678939 Never drinks alcohol 09/30/2017 On Disability Unknown Yes 09/30/2017 Allergies, Adverse Reactions, Alerts Substance Reaction Codes Entered Date Inactivated Date Status NO KNOWN DRUG ALLERGIES Unknown 09/30/2017 No Inactive Date Active Past Medical History Illness Codes Condition Status Onset Date Resolved Date Chronic pain syndrome ICD-9: 338.4 ICD-10: G89.4 Active 09/30/2017 Unknown Essential (primary) hypertension ICD-9: 401.1 ICD-10: [...] syndrome ICD-9: 338.4 ICD-10: G89.4 09/30/2017 Active Essential (primary) hypertension ICD-9: 401.1 ICD-10: [...] Fill Instructions oxycodone 5 mg tablet RxNorm: 0025700 1 Tablet(s) PO QID as needed for pain 08/02/2018 08/31/2018 Active alprazolam 1 mg tablet RxNorm: 515320 1 Tablet(s) PO TID as needed anxiety 08/02/2018 08/31/2018 Active Levothroid 25 mcg tablet RxNorm: 187703 1 Tablet(s) PO daily No Stop Date Active alprazolam 1 mg tablet RxNorm: 465993 1 Tablet(s) PO TID as needed anxiety 07/05/2018 08/01/2018 Inactive oxycodone 5 mg tablet RxNorm: 7306952 1 Tablet(s) PO QID as needed for pain 07/05/2018 08/01/2018 Inactive Levothroid 25 mcg tablet RxNorm: 341030 1 Tablet(s) PO daily 08/01/2018 Inactive Kenalog 40 mg/mL suspension for injection RxNorm: 1725863 Milliliter(s) Inj 06/27/2018 06/27/2018 Inactive doxycycline hyclate 100 mg tablet RxNorm: 6049500 1 Tablet(s) PO BID 06/27/2018 07/06/2018 Inactive alprazolam 1 mg tablet RxNorm: 228733 1 Tablet(s) PO TID as needed anxiety 06/08/2018 07/04/2018 Inactive Cymbalta 30 mg capsule,delayed release RxNorm: 439825 1 Capsule(s) PO daily 06/07/2018 06/08/2018 Inactive Bystolic 5 mg tablet RxNorm: 941057 1 Tablet(s) PO daily 201706/09/2018 Inactive oxycodone 5 mg tablet RxNorm: 1879669 1 Tablet(s) PO QID as needed for pain 06/07/2018 07/04/2018 Inactive Cymbalta 30 mg capsule,delayed release RxNorm: 124287 1 Capsule(s) PO daily 05/09/2018 06/06/2018 Inactive alprazolam 1 mg tablet RxNorm: 940046 1 Tablet(s) PO TID as needed anxiety 04/05/2018 05/03/2018 Inactive oxycodone 5 mg tablet RxNorm: 7093101 1 Tablet(s) PO QID as needed for pain 04/05/2018 05/04/2018 Inactive cyclobenzaprine 5 mg tablet RxNorm: 860405 1 Tablet(s) PO TID as needed muscle spasms 03/18/2018 06/01/2018 Inactive mupirocin 2 % topical cream RxNorm: 141565 1 Application TOP BID 03/11/2018 06/08/2018 Inactive hydrocodone 5 mg-acetaminophen 325 mg tablet RxNorm: 568094 1 Tablet(s) PO TID as needed for pain 03/10/2018 04/04/2018 Inactive alprazolam 1 mg tablet RxNorm: 761908 1 Tablet(s) PO TID as needed anxiety 03/10/2018 04/04/2018 Inactive hydrocodone 5 mg-acetaminophen 325 mg tablet RxNorm: 777965 1 Tablet(s) PO TID as needed for pain 02/09/2018 03/09/2018 Inactive alprazolam 1 mg tablet RxNorm: 032128 1 Tablet(s) PO TID as needed anxiety 02/09/2018 03/09/2018 Inactive alprazolam 1 mg tablet RxNorm: 340205 1 Tablet(s) PO TID as needed anxiety 01/10/2018 02/08/2018 Inactive pantoprazole 40 mg tablet,delayed release RxNorm: 541883 1 Tablet(s) PO daily 12/27/2017 06/08/2018 Inactive pantoprazole 40 mg tablet,delayed release RxNorm: 841021 1 Tablet(s) PO daily 12/27/2017 12/26/2017 Inactive hydrocodone 5 mg-acetaminophen 325 mg tablet RxNorm: 249103 1 Tablet(s) PO TID as needed for pain 12/09/2017 01/07/2018 Inactive alprazolam 1 mg tablet RxNorm: 685566 1 Tablet(s) PO TID as needed anxiety 12/09/2017 01/07/2018 Inactive alprazolam 1 mg tablet RxNorm: 449831 1 Tablet(s) PO TID as needed anxiety 11/09/2017 12/08/2017 Inactive hydrocodone 5 mg-acetaminophen 325 mg tablet RxNorm: 445366 1 Tablet(s) PO TID as needed for pain 11/09/2017 12/08/2017 Inactive prednisone 20 mg tablet RxNorm: 015419 2 Tablet(s) PO daily 10/24/2017 Inactive hydrocodone 5 mg-acetaminophen 325 mg tablet RxNorm: 205623 1 Tablet(s) PO TID as needed for pain 10/14/2017 2017 Inactive Eliquis 5 mg tablet RxNorm: 4176535 1 Tablet(s) PO BID No Start Date Active carvedilol 6.25 mg tablet RxNorm: 691935 1 Tablet(s) PO BID No Start Date Active Levothroid 25 mcg tablet RxNorm: 241283 1 Tablet(s) PO daily No Start Date 07/04/2018 Inactive hydrocodone 5 mg-acetaminophen 325 mg tablet RxNorm: 912654 1 Tablet(s) PO TID as needed for pain No Start Date 10/13/2017 Inactive cyclobenzaprine 5 mg tablet RxNorm: 403435 1 Tablet(s) PO TID as needed muscle spasms No Start Date 03/17/2018 Inactive Epclusa 400 mg-100 mg tablet RxNorm: 9547309 1 Tablet(s) PO daily No Start Date 07/11/2018 Inactive pantoprazole 40 mg tablet,delayed release RxNorm: 530772 1 Tablet(s) PO daily No Start Date 12/26/2017 Inactive alprazolam 1 mg tablet RxNorm: 972182 1 Tablet(s) PO TID as needed anxiety No Start Date 2017 Inactive flecainide 100 mg tablet RxNorm: 247136 1 Tablet(s) PO BID No Start Date 06/08/2018 Inactive metoprolol succinate ER 50 mg tablet,extended release 24 hr RxNorm: 541097 1/2 Tablet(s) PO daily managed by Dr Wilder No Start Date 06/08/2018 Inactive duloxetine 60 mg capsule,delayed release RxNorm: 552121 2 Capsule(s) PO daily No Start Date 11/30/2017 Inactive Medication Administered Medication Codes Instructions Start Date Status Kenalog 40 mg/mL suspension for injection RxNorm: 2419403 Milliliter 06/27/2018 No longer Active Immunizations Vaccine Codes Date Status Influenza CVX: 141 06/20/2018 completed Assessments Condition Codes Effective Dates Chronic pain syndrome ICD-10: G89.4 ICD-9: 338.4 07/21/2018 Essential (primary) hypertension ICD-10: I10 ICD-9: 401.1 07/21/2018 Major depressive disorder, single episode, moderate ICD-10: F32.1 ICD-9: 296.22 07/21/2018 Generalized anxiety disorder ICD-10: F41.1 ICD-9: 300.00 07/21/2018 Acute bronchitis due to other specified organisms [...] Visit Reason For Visit Effective Dates Notes low back pain 07/21/2018 cough 06/27/2018 Hospital [...] normal 10/19/2017 None Full Exam - General 1995 Ears/Nose/Throat [...] Procedure Codes Date THER/PROPH/DIAG INJ SC/IM CPT-4: 46894 06/27/2018 TRIAMCINOLONE ACET INJ NOS CPT-4: J3301 06/27/2018 IMMUNIZATION ADMIN CPT -4: 74251 06/20/2018 FLU VACC PRSV FREE INC ANTIG CPT-4: 38773 06/20/2018 Vital Signs Date Vital 07/21/2018 Blood Pressure 1: 112/64 Code : 8480-6 BMI: 30.7 Code : 91408-3 Heart Rate 1 : 93 bpm Height: 6' SpO2: 96% Weight: 226 lbs 06/27/2018 Blood Pressure 1: 106/56 Code : 8480-6 Heart Rate 1: 78 bpm Height: SpO2: 96% Temperature: 36.7 (C) / 98.1 (F) Weight: 228 lbs 06/20/2018 Blood Pressure 1: 130/76 Code : 8480-6 BMI: 30.7 Code : 83151-2 Heart Rate 1 : 83 bpm Height: 6' SpO2: 96% Weight: 226 lbs 05/20/2018 Blood Pressure 1: 124/70 Code : 8480-6 Heart Rate 1: 88 bpm Height: 6' 05/09/2018 Blood Pressure 1: 126/82 Code : 8480-6 BMI: 30.7 Code : 31922-1 Heart Rate 1 : 102 bpm Height: 6' SpO2: 97% Weight: 226 lbs 03/11/2018 Blood Pressure 1: 128/72 Code : 8480-6 BMI: 30.7 Code : 80069-4 Heart Rate 1 : 90 bpm Height: 6' SpO2: 96% Weight: 226 lbs 01/18/2018 Blood Pressure 1: 138/70 Code : 8480-6 BMI: 30.5 Code : 33444-8 Heart Rate 1 : 80 bpm Height: 6' SpO2: 95% Weight: 225 lbs 12/10/2017 Blood Pressure 1: 140/64 Code : 8480-6 BMI: 30.7 Code : 46031-7 Heart Rate 1 : 71 bpm Height: 6' SpO2: 96% Weight: 226 lbs 11/09/2017 Blood Pressure 1: 102/68 Code : 8480-6 Heart Rate 1: 90 bpm Height: 6' SpO2: 97% Weight: 10/19/2017 Blood Pressure 1: 136/82 Code : 8480-6 Heart Rate 1: 98 bpm Height: SpO2: 96% Weight: 09/30/2017 Blood Pressure 1: 130/88 Code : 8480-6 BMI: 31.3 Code : 67095-5 Heart Rate 1 : 101 bpm Height: 6' SpO2: 98% Weight: 231 lbs Functional Status No Functional Status data History of Present Illness Symptom Name Status Result Effective Date Notes low back pain Quality chronic 07/21/2018 None [...] Codes Date EST. PATIENT, LEVEL IV Diagnosis: Generalized anxiety disorder[ICD10: F41.1] Diagnosis: Major depressive disorder, single episode, moderate[ICD10: F32.1] Diagnosis: Chronic pain syndrome[ICD10: G89.4] Diagnosis: Essential (primary) hypertension[ICD10: I10] [facility] CPT-4: 51708 07/21/2018 11712 EST. PATIENT, LEVEL IV Diagnosis: Acute bronchitis due to other specified organisms[ICD10: J20.8] [facility]issa Cowan MD, [facility] CPT-4: 88748 06/27/2018 85544 EST. PATIENT, LEVEL III Diagnosis: Paroxysmal atrial fibrillation[ICD10: I48.0] Diagnosis: Chronic pain syndrome[ICD10: G89.4] Diagnosis: Essential (primary) hypertension[ICD10: I10] Diagnosis: Encounter for immunization[ICD10: Z23] [facility] MD, [facility] CPT-4: 93158 06/20/2018 ([id number]) Miscellaneous no charge Diagnosis: Generalized anxiety disorder[ICD10: F41.1] Alissa Cowan MD, [facility] CPT-4: 21730 05/20/2018 06500 EST. PATIENT, LEVEL IV Diagnosis: Generalized anxiety disorder[ICD10: F41.1] Diagnosis: Major depressive disorder, single episode, moderate[ICD10: F32.1] Diagnosis: Other hydrocele[ICD10: N43.2] Diagnosis: Chronic pain syndrome[ICD10: G89.4] Diagnosis: Essential (primary) hypertension[ICD10: I10] Alissa Cowan MD, [facility] CPT-4: 85328 05/09/2018 39691 EST. PATIENT, LEVEL IV Diagnosis: Chronic pain syndrome[ICD10: G89.4] Diagnosis: Generalized anxiety disorder[ICD10: F41.1] Diagnosis: Major depressive disorder, single episode, moderate[ICD10: F32.1] Diagnosis: Other hydrocele[ICD10: N43.2] Alissa Cowan MD, [facility] CPT-4 : 10264 03/11/2018 06570 EST. PATIENT, LEVEL IV Diagnosis: Chronic pain syndrome[ICD10: G89.4] Diagnosis: Low back pain[ICD10: M54.5] Diagnosis: Generalized anxiety disorder[ICD10: F41.1] Diagnosis: Major depressive disorder, single episode, moderate[ICD10: F32.1] Diagnosis: Left lower quadrant pain[ICD10: R10.32] Alissa Cowan MD, [facility] CPT-4: 22092 01/18/2018 43936 EST. PATIENT, LEVEL IV Diagnosis: Chronic pain syndrome[ICD10: G89.4] Diagnosis: Low back pain[ICD10: M54.5] Diagnosis: Generalized anxiety disorder[ICD10: F41.1] Diagnosis: Major depressive disorder, single episode, moderate[ICD10: F32.1] Alissa Cowan MD, [facility] CPT-4: 08821 12/10/2017 93165 EST. PATIENT, LEVEL IV Diagnosis: Chronic pain syndrome[ICD10: G89.4] Diagnosis: Low back pain[ICD10: M54.5] Diagnosis: Generalized anxiety disorder[ICD10: F41.1] Diagnosis: Major depressive disorder, single episode, moderate[ICD10: F32.1] Alissa Cowan MD, [facility] CPT-4: 33106 11/09/2017 15381 EST. PATIENT, LEVEL IV Diagnosis: Chronic pain syndrome[ICD10: G89.4] Diagnosis: Low back pain[ICD10: M54.5] Diagnosis: Generalized anxiety disorder[ICD10: F41.1] Diagnosis: Major depressive disorder, single episode, moderate[ICD10: F32.1] [facility] MD, [facility] CPT-4: 35757 10/19/2017 OFFICE VISIT, NEW - LEVEL 4 Diagnosis: Chronic pain syndrome[ICD10: G89.4] Diagnosis: Low back pain[ICD10: M54.5] Diagnosis: Headache[ICD10: R51] Diagnosis: Generalized anxiety disorder[ICD10: F41.1] Diagnosis: Major depressive disorder, single episode, moderate[ICD10: F32.1] Diagnosis: Gastro-esophageal reflux disease without esophagitis[ICD10: K21.9] Diagnosis: Paroxysmal atrial fibrillation[ICD10: I48.0] Alissa [facility] MD, [facility] CPT-4: 26364 09/30/2017 Plan of Care Planned Activity Notes [...] medication. 07/21/2018 Appointment: Alissa Jimenez WPtel: [phone] [facility] (15 min) Moderate 07/21/2018 Patient Education: Patient Medication Summary Completed 07/21/2018 Patient Education: Depression Completed 07/21/2018 Visit Plan: Bronchitis - acute case of bronchitis identified. Pt has been given antibiotics, steroids as appropriate, and pt has been instructed to call if symptoms are not improved, or if symptoms acutely worsen. 06/27/2018 Appointment: Alissa Jimenez WPtel: [phone] [facility] (15 min) Moderate 06/27/2018 Patient Education: Patient [...] medication. 06/20/2018 Appointment: Alissa Jimenez WPtel: [phone] [facility] (15 min) Moderate 06/20/2018 Patient Education: Patient [...] over-medication. 05/09/2018 Appointment: Alissa Jimenez WPtel: [phone] [facility] (15 min) Moderate 05/09/2018 Patient Education: Patient Medication Summary Completed 05/09/2018 Appointment: [phone] (30 min) Complex 03/22/2018 Referral: External, Ordering Provider they will call him for appt Initiated Care Plan: Referral Order SNOMED-CT : [id number] Pending 03/13/2018 Visit Plan: Chronic Pain Syndrome [...] urology 03/11/2018 Appointment: Alissa Jimenez [facility]Ptel: [phone] [facility] [place] (15 min) Moderate 03/11/2018 Patient Education: [...] indicated. 01/18/2018 Appointment: Alissa Jimenez [facility]el[phone] [facility] [place] (15 min) Moderate 01/18/2018 Patient Education: [...] current medications. 12/10/2017 Appointment: Alissa Jimenez WPtel: [facility] [place] (30 min) Complex 12/10/2017 Patient Education: Patient Medication Summary Completed 12/10/2017 Appointment: Alissa Jimenez [facility]Ptel: [phone] [facility] [place] [place] (30 min) Complex 12/07/2017 Appointment: Alissa Jimenez [facility]Ptel[phone] [facility] [place] (15 min) Moderate 11/19/2017 Visit Plan: [...] current medications. 10/19/2017 Appointment: Alissa Jimenez WPtel: [address] [place], [place] [address] (30 min) [facility] 10/19/2017 Patient Education: Patient Medication Summary Completed [...] uncontrolled. 09/30/2017 Appointment: Alissa Jimenez [facility]Ptel[phone] [facility] [place] New Patient 09/30/2017 Patient Education: Patient [...] Referral to urology - Todd Rodrigez fax [phone] attention caleb FRITZ in [place] . Anxiety - the patient has uncontrolled [...] the need to taper off pain medication. . Chronic Pain Syndrome - pt has [...]
--- OUTSIDE RECORDS SUMMARY | 2018-11-24 05:06 | XMS REPORT | CCD ---
Author Author Alissa Jimenez Organization [facility] Address [address] [place] [address] Phone Care Team Providers Care Java Websphere Developer Name Role Phone PP Unavailable CCM Unavailable Summary Purpose Interface Exchange Insurance Providers Payer name Policy type / Coverage type Covered democrat ID Effective Begin Date Effective End Date [employer] - Medicaid [id number] 2017 Unknown Family history Father Diagnosis Age At Onset No Known Diseases N/A Mother Diagnosis Age At Onset No Known Diseases N/A Social History Social History Element Codes Description Effective Dates Marital status Unknown Single 09/30/2017 Employment Unknown Currently unemployed 09/30/[address]: 8943262 Former smoker 09/30/[address]: 273842246 Never drinks alcohol 09/30/2017 On Disability Unknown [...] Fill Instructions alprazolam 1 mg tablet RxNorm: 629158 1 Tablet(s) PO TID as needed anxiety 07/05/2018 08/03/2018 Active oxycodone 5 mg tablet RxNorm: 3898512 1 Tablet(s) PO QID as needed for pain 07/05/2018 08/03/2018 Active Levothroid 25 mcg tablet RxNorm: 613043 1 Tablet(s) PO daily No Stop Date Active Kenalog 40 mg/mL suspension for injection RxNorm: 8366266 Milliliter(s) Inj 06/27/2018 06/27/2018 Inactive doxycycline hyclate 100 mg tablet RxNorm: 6776341 1 Tablet(s) PO BID 06/27/2018 07/06/2018 Inactive alprazolam 1 mg tablet RxNorm: 754639 1 Tablet(s) PO TID as needed anxiety 06/08/2018 07/04/2018 Inactive Cymbalta 30 mg capsule,delayed release RxNorm: 077307 1 Capsule(s) PO daily 06/07/2018 06/08/2018 Inactive Bystolic 5 mg tablet RxNorm: 434787 1 Tablet(s) PO daily 201706/09/2018 Inactive oxycodone 5 mg tablet RxNorm: 4931985 1 Tablet(s) PO QID as needed for pain 06/07/2018 07/04/2018 Inactive Cymbalta 30 mg capsule,delayed release RxNorm: 898109 1 Capsule(s) PO daily 05/09/2018 06/06/2018 Inactive alprazolam 1 mg tablet RxNorm: 045201 1 Tablet(s) PO TID as needed anxiety 04/05/2018 05/03/2018 Inactive oxycodone 5 mg tablet RxNorm: 7677375 1 Tablet(s) PO QID as needed for pain 04/05/2018 05/04/2018 Inactive cyclobenzaprine 5 mg tablet RxNorm: 072576 1 Tablet(s) PO TID as needed muscle spasms 03/18/2018 06/01/2018 Inactive mupirocin 2 % topical cream RxNorm: 482708 1 Application TOP BID 03/11/2018 06/08/2018 Inactive hydrocodone 5 mg-acetaminophen 325 mg tablet RxNorm: 522195 1 Tablet(s) PO TID as needed for pain 03/10/2018 04/04/2018 Inactive alprazolam 1 mg tablet RxNorm: 803842 1 Tablet(s) PO TID as needed anxiety 03/10/2018 04/04/2018 Inactive hydrocodone 5 mg-acetaminophen 325 mg tablet RxNorm: 603672 1 Tablet(s) PO TID as needed for pain 02/09/2018 03/09/2018 Inactive alprazolam 1 mg tablet RxNorm: 960857 1 Tablet(s) PO TID as needed anxiety 02/09/2018 03/09/2018 Inactive alprazolam 1 mg tablet RxNorm: 549074 1 Tablet(s) PO TID as needed anxiety 01/10/2018 02/08/2018 Inactive pantoprazole 40 mg tablet,delayed release RxNorm: 749708 1 Tablet(s) PO daily 12/27/2017 06/08/2018 Inactive pantoprazole 40 mg tablet,delayed release RxNorm: 155112 1 Tablet(s) PO daily 12/27/2017 12/26/2017 Inactive hydrocodone 5 mg-acetaminophen 325 mg tablet RxNorm: 041736 1 Tablet(s) PO TID as needed for pain 12/09/2017 01/07/2018 Inactive alprazolam 1 mg tablet RxNorm: 832093 1 Tablet(s) PO TID as needed anxiety 12/09/2017 01/07/2018 Inactive alprazolam 1 mg tablet RxNorm: 111279 1 Tablet(s) PO TID as needed anxiety 11/09/2017 12/08/2017 Inactive hydrocodone 5 mg-acetaminophen 325 mg tablet RxNorm: 436625 1 Tablet(s) PO TID as needed for pain 11/09/2017 12/08/2017 Inactive prednisone 20 mg tablet RxNorm: 220536 2 Tablet(s) PO daily 10/24/2017 Inactive hydrocodone 5 mg-acetaminophen 325 mg tablet RxNorm: 022368 1 Tablet(s) PO TID as needed for pain 10/14/2017 2017 Inactive Eliquis 5 mg tablet RxNorm: 6786712 1 Tablet(s) PO BID No Start Date Active carvedilol 6.25 mg tablet RxNorm: 156906 1 Tablet(s) PO BID No Start Date Active Levothroid 25 mcg tablet RxNorm: 369750 1 Tablet(s) PO daily No Start Date 07/04/2018 Inactive hydrocodone 5 mg-acetaminophen 325 mg tablet RxNorm: 246318 1 Tablet(s) PO TID as needed for pain No Start Date 10/13/2017 Inactive cyclobenzaprine 5 mg tablet RxNorm: 650127 1 Tablet(s) PO TID as needed muscle spasms No Start Date 03/17/2018 Inactive Epclusa 400 mg-100 mg tablet RxNorm: 8502561 1 Tablet(s) PO daily No Start Date 07/11/2018 Inactive pantoprazole 40 mg tablet,delayed release RxNorm: 700446 1 Tablet(s) PO daily No Start Date 12/26/2017 Inactive alprazolam 1 mg tablet RxNorm: 741687 1 Tablet(s) PO TID as needed anxiety No Start Date 2017 Inactive flecainide 100 mg tablet RxNorm: 967853 1 Tablet(s) PO BID No Start Date 06/08/2018 Inactive metoprolol succinate ER 50 mg tablet,extended release 24 hr RxNorm: 093280 1/2 Tablet(s) PO daily managed by Dr Wilder No Start Date 06/08/2018 Inactive duloxetine 60 mg capsule,delayed release RxNorm: 167545 2 Capsule(s) PO daily No Start Date 11/30/2017 Inactive Medication Administered Medication Codes Instructions Start Date Status Kenalog 40 mg/mL suspension for injection RxNorm: 3957596 Milliliter 06/27/2018 No longer Active Immunizations Vaccine Codes Date Status Influenza CVX: 141 06/20/2018 completed Assessments Condition Codes Effective Dates Generalized anxiety disorder ICD-10: F41.1 ICD-9: 300.00 07/21/2018 Chronic pain syndrome ICD-10: G89.4 ICD-9: 338.4 07/21/2018 Essential (primary) hypertension ICD-10: I10 ICD-9: 401.1 07/21/2018 Major depressive disorder, single episode, moderate ICD-10: F32.1 ICD-9: 296.22 07/21/2018 Acute bronchitis due to other specified [...] Procedure Codes Date THER/PROPH/DIAG INJ SC/IM CPT-4: 93779 06/27/2018 TRIAMCINOLONE ACET INJ NOS CPT-4: J3301 06/27/2018 IMMUNIZATION ADMIN CPT -4: 26860 06/20/2018 FLU VACC PRSV FREE INC ANTIG CPT-4: 91877 06/20/2018 Vital Signs Date Vital 07/21/2018 Blood Pressure 1: 112/64 Code : 8480-6 BMI: 30.7 Code : 17145-1 Heart Rate 1 : 93 bpm Height: 6' SpO2: 96% Weight: 226 lbs 06/27/2018 Blood Pressure 1: 106/56 Code : 8480-6 Heart Rate 1: 78 bpm Height: SpO2: 96% Temperature: 36.7 (C) / 98.1 (F) Weight: 228 lbs 06/20/2018 Blood Pressure 1: 130/76 Code : 8480-6 BMI: 30.7 Code : 50005-4 Heart Rate 1 : 83 bpm Height: 6' SpO2: 96% Weight: 226 lbs 05/20/2018 Blood Pressure 1: 124/70 Code : 8480-6 Heart Rate 1: 88 bpm Height: 6' 05/09/2018 Blood Pressure 1: 126/82 Code : 8480-6 BMI: 30.7 Code : 95305-2 Heart Rate 1 : 102 bpm Height: 6' SpO2: 97% Weight: 226 lbs 03/11/2018 Blood Pressure 1: 128/72 Code : 8480-6 BMI: 30.7 Code : 24385-6 Heart Rate 1 : 90 bpm Height: 6' SpO2: 96% Weight: 226 lbs 01/18/2018 Blood Pressure 1: 138/70 Code : 8480-6 BMI: 30.5 Code : 70872-6 Heart Rate 1 : 80 bpm Height: 6' SpO2: 95% Weight: 225 lbs 12/10/2017 Blood Pressure 1: 140/64 Code : 8480-6 BMI: 30.7 Code : 30479-0 Heart Rate 1 : 71 bpm Height: 6' SpO2: 96% Weight: 226 lbs 11/09/2017 Blood Pressure 1: 102/68 Code : 8480-6 Heart Rate 1: 90 bpm Height: 6' SpO2: 97% Weight: 10/19/2017 Blood Pressure 1: 136/82 Code : 8480-6 Heart Rate 1: 98 bpm Height: SpO2: 96% Weight: 09/30/2017 Blood Pressure 1: 130/88 Code : 8480-6 BMI: 31.3 Code : 54686-5 Heart Rate 1 : 101 bpm Height: [...] data Encounters Encounter Performer Location Codes Date 76869 EST. PATIENT, LEVEL IV Diagnosis: Generalized anxiety disorder[ICD10: F41.1] Diagnosis: Major depressive disorder, single episode, moderate[ICD10: F32.1] Diagnosis: Chronic pain syndrome[ICD10: G89.4] Diagnosis: Essential (primary) hypertension[ICD10: I10] Alissa Cowan MD, [facility] CPT-4: 72475 07/21/2018 95569 EST. PATIENT, LEVEL IV Diagnosis: Acute bronchitis due to other specified organisms[ICD10: J20.8] [facility] CPT-4: 29213 06/27/2018 79236 EST. PATIENT, LEVEL III Diagnosis: Paroxysmal atrial fibrillation[ICD10: I48.0] Diagnosis: Chronic pain syndrome[ICD10: G89.4] Diagnosis: Essential (primary) hypertension[ICD10: I10] Diagnosis: Encounter for immunization[ICD10: Z23] Alissa Cowan MD, [facility] CPT-4: 37049 06/20/2018 ([id number]) Miscellaneous no charge Diagnosis: Generalized anxiety disorder[ICD10: F41.1] Alissa Cowan MD, [facility] CPT-4: 27414 05/20/2018 24864 EST. PATIENT, LEVEL IV Diagnosis: Generalized anxiety disorder[ICD10: F41.1] Diagnosis: Major depressive disorder, single episode, moderate[ICD10: F32.1] Diagnosis: Other hydrocele[ICD10: N43.2] Diagnosis: Chronic pain syndrome[ICD10: G89.4] Diagnosis: Essential (primary) hypertension[ICD10: I10] Alissa Cowan MD, [facility] CPT-4: 86015 05/09/2018 11347 EST. PATIENT, LEVEL IV Diagnosis: Chronic pain syndrome[ICD10: G89.4] Diagnosis: Generalized anxiety disorder[ICD10: F41.1] Diagnosis: Major depressive disorder, single episode, moderate[ICD10: F32.1] Diagnosis: Other hydrocele[ICD10: N43.2] Alissa Cowan MD, [facility] CPT-4 : 21589 03/11/2018 29015 EST. PATIENT, LEVEL IV Diagnosis: Chronic pain syndrome[ICD10: G89.4] Diagnosis: Low back pain[ICD10: M54.5] Diagnosis: Generalized anxiety disorder[ICD10: F41.1] Diagnosis: Major depressive disorder, single episode, moderate[ICD10: F32.1] Diagnosis: Left lower quadrant pain[ICD10: R10.32] Alissa Cowan MD, [facility] CPT-4: 55783 01/18/2018 56910 EST. PATIENT, LEVEL IV Diagnosis: Chronic pain syndrome[ICD10: G89.4] Diagnosis: Low back pain[ICD10: M54.5] Diagnosis: Generalized anxiety disorder[ICD10: F41.1] Diagnosis: Major depressive disorder, single episode, moderate[ICD10: F32.1] Alissa Cowan MD, [facility] CPT-4: 90574 12/10/2017 59634 EST. PATIENT, LEVEL IV Diagnosis: Chronic pain syndrome[ICD10: G89.4] Diagnosis: Low back pain[ICD10: M54.5] Diagnosis: Generalized anxiety disorder[ICD10: F41.1] Diagnosis: Major depressive disorder, single episode, moderate[ICD10: F32.1] Alissa Cowan MD, [facility] CPT-4: 29374 11/09/2017 27000 EST. PATIENT, LEVEL IV Diagnosis: Chronic pain syndrome[ICD10: G89.4] Diagnosis: Low back pain[ICD10: M54.5] Diagnosis: Generalized anxiety disorder[ICD10: F41.1] Diagnosis: Major depressive disorder, single episode, moderate[ICD10: F32.1] Alissa Cowan MD, [facility] CPT-4: 35327 10/19/2017 OFFICE VISIT, NEW - LEVEL 4 Diagnosis: Chronic pain syndrome[ICD10: G89.4] Diagnosis: Low back pain[ICD10: M54.5] Diagnosis: Headache[ICD10: R51] Diagnosis: Generalized anxiety disorder[ICD10: F41.1] Diagnosis: Major depressive disorder, single episode, moderate[ICD10: F32.1] Diagnosis: Gastro-esophageal reflux disease without esophagitis[ICD10: K21.9] Diagnosis: Paroxysmal atrial fibrillation[ICD10: I48.0] Alissa Cowan MD, [facility] CPT-4: 39254 09/30/2017 Plan of Care Planned Activity Notes [...] need to taper off pain medication. 07/21/2018 Patient Education: Patient Medication Summary Completed 07/21/2018 Patient Education: Depression Completed 07/21/2018 Visit Plan: Bronchitis - acute case of bronchitis identified. Pt has been given antibiotics, steroids as appropriate, and pt has been instructed to call if symptoms are not improved, or if symptoms acutely worsen. 06/27/2018 Appointment: Alissa Jimenez WPtel: [phone] [facility] (15 min) Moderate 06/27/2018 Patient Education: Patient [...] medication. 06/20/2018 Appointment: Alissa Jimenez WPtel: [phone] [facility] (15 min) Moderate 06/20/2018 Patient Education: Patient [...] over-medication. 05/09/2018 Appointment: [phone] (15 min) Moderate 05/09/2018 Patient Education: Patient Medication Summary Completed 05/09/2018 Appointment: [facility] Jimenez [phone] [facility] (30 min) Complex 03/22/2018 Referral: External, Ordering Provider they will call him for appt Initiated Care Plan: Referral Order SNOMED-CT : [id number] Pending 03/13/2018 Visit Plan: Chronic Pain Syndrome [...] urology 03/11/2018 Appointment: Alissa Jimenez [facility]Ptel[facility] [phone] [facility] [place] (15 min) Moderate 03/11/2018 Patient Education: [...] Appointment: Alissa Jimenez [facility]el[phone] [facility] [place] (15 min) Moderate 01/18/2018 Patient Education: [...] medications. 12/10/2017 Appointment: Alissa Jimenez [facility]el[phone] [facility] [place] (30 min) Complex 12/10/2017 Patient Education: Patient Medication Summary Completed 12/10/2017 Appointment: Alissa Jimenez [facility]el[facility] [phone] [facility] [place] (30 min) Complex 12/07/2017 Appointment: Alissa Jimenez [facility]el[facility] [phone] [facility] [place] (15 min) Moderate 11/19/2017 Visit Plan: [...] medications. 10/19/2017 Appointment: Alissa Jimenez [phone] [facility] (30 min) Complex 10/19/2017 Patient Education: Patient [...] Appointment: Alissa Jimenez [facility]el[phone] [facility] New Patient 09/30/2017 Patient Education: Patient Medication [...] Referral to urology - Todd Rodrigez fax [phone] rylan FRITZ in [place] . Anxiety - the patient has uncontrolled [...]
--- OUTSIDE RECORDS SUMMARY | 2018-11-24 05:07 | XMS REPORT | CCD ---
Author Author Alissa Jimenez Organization [facility] Address [address] [place] [address] Phone Care Team Providers Care Planimeter Operator Name Role Phone PP Unavailable CCM Unavailable Summary Purpose Interface Exchange Insurance Providers Payer name Policy type / Coverage type Covered green party ID Effective Begin Date Effective End Date [employer] - Medicaid [id number] 2017 Unknown Family history Father Diagnosis Age At Onset No Known Diseases N/A Mother Diagnosis Age At Onset No Known Diseases N/A Social History Social History Element Codes Description Effective Dates Marital status Unknown Single 09/30/2017 Employment Unknown Currently unemployed 09/30/[address]: 9712719 Former smoker 09/30/[address]: 483894292 Never drinks alcohol 09/30/2017 On Disability Unknown [...] Fill Instructions alprazolam 1 mg tablet RxNorm: 800221 1 Tablet(s) PO TID as needed anxiety 07/05/2018 08/03/2018 Active oxycodone 5 mg tablet RxNorm: 3293767 1 Tablet(s) PO QID as needed for pain 07/05/2018 08/03/2018 Active Levothroid 25 mcg tablet RxNorm: 082275 1 Tablet(s) PO daily No Stop Date Active Kenalog 40 mg/mL suspension for injection RxNorm: 3192600 Milliliter(s) Inj 06/27/2018 06/27/2018 Inactive doxycycline hyclate 100 mg tablet RxNorm: 2043083 1 Tablet(s) PO BID 06/27/2018 07/06/2018 Inactive alprazolam 1 mg tablet RxNorm: 434473 1 Tablet(s) PO TID as needed anxiety 06/08/2018 07/04/2018 Inactive Cymbalta 30 mg capsule,delayed release RxNorm: 138550 1 Capsule(s) PO daily 06/07/2018 06/08/2018 Inactive Bystolic 5 mg tablet RxNorm: 117171 1 Tablet(s) PO daily 201706/09/2018 Inactive oxycodone 5 mg tablet RxNorm: 8245134 1 Tablet(s) PO QID as needed for pain 06/07/2018 07/04/2018 Inactive Cymbalta 30 mg capsule,delayed release RxNorm: 735526 1 Capsule(s) PO daily 05/09/2018 06/06/2018 Inactive alprazolam 1 mg tablet RxNorm: 183885 1 Tablet(s) PO TID as needed anxiety 04/05/2018 05/03/2018 Inactive oxycodone 5 mg tablet RxNorm: 2495670 1 Tablet(s) PO QID as needed for pain 04/05/2018 05/04/2018 Inactive cyclobenzaprine 5 mg tablet RxNorm: 088355 1 Tablet(s) PO TID as needed muscle spasms 03/18/2018 06/01/2018 Inactive mupirocin 2 % topical cream RxNorm: 569777 1 Application TOP BID 03/11/2018 06/08/2018 Inactive hydrocodone 5 mg-acetaminophen 325 mg tablet RxNorm: 942684 1 Tablet(s) PO TID as needed for pain 03/10/2018 04/04/2018 Inactive alprazolam 1 mg tablet RxNorm: 258253 1 Tablet(s) PO TID as needed anxiety 03/10/2018 04/04/2018 Inactive hydrocodone 5 mg-acetaminophen 325 mg tablet RxNorm: 121902 1 Tablet(s) PO TID as needed for pain 02/09/2018 03/09/2018 Inactive alprazolam 1 mg tablet RxNorm: 404685 1 Tablet(s) PO TID as needed anxiety 02/09/2018 03/09/2018 Inactive alprazolam 1 mg tablet RxNorm: 008628 1 Tablet(s) PO TID as needed anxiety 01/10/2018 02/08/2018 Inactive pantoprazole 40 mg tablet,delayed release RxNorm: 691293 1 Tablet(s) PO daily 12/27/2017 06/08/2018 Inactive pantoprazole 40 mg tablet,delayed release RxNorm: 623295 1 Tablet(s) PO daily 12/27/2017 12/26/2017 Inactive hydrocodone 5 mg-acetaminophen 325 mg tablet RxNorm: 547387 1 Tablet(s) PO TID as needed for pain 12/09/2017 01/07/2018 Inactive alprazolam 1 mg tablet RxNorm: 387474 1 Tablet(s) PO TID as needed anxiety 12/09/2017 01/07/2018 Inactive alprazolam 1 mg tablet RxNorm: 287917 1 Tablet(s) PO TID as needed anxiety 11/09/2017 12/08/2017 Inactive hydrocodone 5 mg-acetaminophen 325 mg tablet RxNorm: 133452 1 Tablet(s) PO TID as needed for pain 11/09/2017 12/08/2017 Inactive prednisone 20 mg tablet RxNorm: 809787 2 Tablet(s) PO daily 10/24/2017 Inactive hydrocodone 5 mg-acetaminophen 325 mg tablet RxNorm: 404584 1 Tablet(s) PO TID as needed for pain 10/14/2017 2017 Inactive Eliquis 5 mg tablet RxNorm: 4943750 1 Tablet(s) PO BID No Start Date Active carvedilol 6.25 mg tablet RxNorm: 160551 1 Tablet(s) PO BID No Start Date Active Levothroid 25 mcg tablet RxNorm: 274479 1 Tablet(s) PO daily No Start Date 07/04/2018 Inactive hydrocodone 5 mg-acetaminophen 325 mg tablet RxNorm: 053495 1 Tablet(s) PO TID as needed for pain No Start Date 10/13/2017 Inactive cyclobenzaprine 5 mg tablet RxNorm: 339606 1 Tablet(s) PO TID as needed muscle spasms No Start Date 03/17/2018 Inactive Epclusa 400 mg-100 mg tablet RxNorm: 5714322 1 Tablet(s) PO daily No Start Date 07/11/2018 Inactive pantoprazole 40 mg tablet,delayed release RxNorm: 426166 1 Tablet(s) PO daily No Start Date 12/26/2017 Inactive alprazolam 1 mg tablet RxNorm: 184208 1 Tablet(s) PO TID as needed anxiety No Start Date 2017 Inactive flecainide 100 mg tablet RxNorm: 401456 1 Tablet(s) PO BID No Start Date 06/08/2018 Inactive metoprolol succinate ER 50 mg tablet,extended release 24 hr RxNorm: 356094 1/2 Tablet(s) PO daily managed by Dr Wilder No Start Date 06/08/2018 Inactive duloxetine 60 mg capsule,delayed release RxNorm: 429638 2 Capsule(s) PO daily No Start Date 11/30/2017 Inactive Medication Administered Medication Codes Instructions Start Date Status Kenalog 40 mg/mL suspension for injection RxNorm: 0733738 Milliliter 06/27/2018 No longer Active Immunizations Vaccine [...] Procedure Codes Date THER/PROPH/DIAG INJ SC/IM CPT-4: 55874 06/27/2018 TRIAMCINOLONE ACET INJ NOS CPT-4: J3301 06/27/2018 IMMUNIZATION ADMIN CPT -4: 33660 06/20/2018 FLU VACC PRSV FREE INC ANTIG CPT-4: 10972 06/20/2018 Vital Signs Date Vital 07/21/2018 Blood Pressure 1: 112/64 Code : 8480-6 BMI: 30.7 Code : 54180-5 Heart Rate 1 : 93 bpm Height: 6' SpO2: 96% Weight: 226 lbs 06/27/2018 Blood Pressure 1: 106/56 Code : 8480-6 Heart Rate 1: 78 bpm Height: SpO2: 96% Temperature: 36.7 (C) / 98.1 (F) Weight: 228 lbs 06/20/2018 Blood Pressure 1: 130/76 Code : 8480-6 BMI: 30.7 Code : 08418-1 Heart Rate 1 : 83 bpm Height: 6' SpO2: 96% Weight: 226 lbs 05/20/2018 Blood Pressure 1: 124/70 Code : 8480-6 Heart Rate 1: 88 bpm Height: 6' 05/09/2018 Blood Pressure 1: 126/82 Code : 8480-6 BMI: 30.7 Code : 99217-3 Heart Rate 1 : 102 bpm Height: 6' SpO2: 97% Weight: 226 lbs 03/11/2018 Blood Pressure 1: 128/72 Code : 8480-6 BMI: 30.7 Code : 93044-8 Heart Rate 1 : 90 bpm Height: 6' SpO2: 96% Weight: 226 lbs 01/18/2018 Blood Pressure 1: 138/70 Code : 8480-6 BMI: 30.5 Code : 20344-3 Heart Rate 1 : 80 bpm Height: 6' SpO2: 95% Weight: 225 lbs 12/10/2017 Blood Pressure 1: 140/64 Code : 8480-6 BMI: 30.7 Code : 44717-1 Heart Rate 1 : 71 bpm Height: 6' SpO2: 96% Weight: 226 lbs 11/09/2017 Blood Pressure 1: 102/68 Code : 8480-6 Heart Rate 1: 90 bpm Height: 6' SpO2: 97% Weight: 10/19/2017 Blood Pressure 1: 136/82 Code : 8480-6 Heart Rate 1: 98 bpm Height: SpO2: 96% Weight: 09/30/2017 Blood Pressure 1: 130/88 Code : 8480-6 BMI: 31.3 Code : 87790-0 Heart Rate 1 : 101 bpm Height: [...] data Encounters Encounter Performer Location Codes Date 06454 EST. PATIENT, LEVEL IV Diagnosis: Generalized anxiety disorder[ICD10: F41.1] Diagnosis: Major depressive disorder, single episode, moderate[ICD10: F32.1] Diagnosis: Chronic pain syndrome[ICD10: G89.4] Diagnosis: Essential (primary) hypertension[ICD10: I10] Alissa Cowan MD, [facility] CPT-4: 72988 07/21/2018 02258 EST. PATIENT, LEVEL IV Diagnosis: Acute bronchitis due to other specified organisms[ICD10: J20.8] [facility] CPT-4: 51492 06/27/2018 03899 EST. PATIENT, LEVEL III Diagnosis: Paroxysmal atrial fibrillation[ICD10: I48.0] Diagnosis: Chronic pain syndrome[ICD10: G89.4] Diagnosis: Essential (primary) hypertension[ICD10: I10] Diagnosis: Encounter for immunization[ICD10: Z23] Alissa Cowan MD, [facility] CPT-4: 17730 06/20/2018 ([id number]) Miscellaneous no charge Diagnosis: Generalized anxiety disorder[ICD10: F41.1] Alissa Cowan MD, [facility] CPT-4: 10779 05/20/2018 42619 EST. PATIENT, LEVEL IV Diagnosis: Generalized anxiety disorder[ICD10: F41.1] Diagnosis: Major depressive disorder, single episode, moderate[ICD10: F32.1] Diagnosis: Other hydrocele[ICD10: N43.2] Diagnosis: Chronic pain syndrome[ICD10: G89.4] Diagnosis: Essential (primary) hypertension[ICD10: I10] Alissa Cowan MD, [facility] CPT-4: 15354 05/09/2018 71014 EST. PATIENT, LEVEL IV Diagnosis: Chronic pain syndrome[ICD10: G89.4] Diagnosis: Generalized anxiety disorder[ICD10: F41.1] Diagnosis: Major depressive disorder, single episode, moderate[ICD10: F32.1] Diagnosis: Other hydrocele[ICD10: N43.2] Alissa Cowan MD, [facility] CPT-4 : 74514 03/11/2018 18374 EST. PATIENT, LEVEL IV Diagnosis: Chronic pain syndrome[ICD10: G89.4] Diagnosis: Low back pain[ICD10: M54.5] Diagnosis: Generalized anxiety disorder[ICD10: F41.1] Diagnosis: Major depressive disorder, single episode, moderate[ICD10: F32.1] Diagnosis: Left lower quadrant pain[ICD10: R10.32] Alissa Cowan MD, [facility] CPT-4: 48343 01/18/2018 89162 EST. PATIENT, LEVEL IV Diagnosis: Chronic pain syndrome[ICD10: G89.4] Diagnosis: Low back pain[ICD10: M54.5] Diagnosis: Generalized anxiety disorder[ICD10: F41.1] Diagnosis: Major depressive disorder, single episode, moderate[ICD10: F32.1] Alissa Cowan MD, [facility] CPT-4: 95736 12/10/2017 35419 EST. PATIENT, LEVEL IV Diagnosis: Chronic pain syndrome[ICD10: G89.4] Diagnosis: Low back pain[ICD10: M54.5] Diagnosis: Generalized anxiety disorder[ICD10: F41.1] Diagnosis: Major depressive disorder, single episode, moderate[ICD10: F32.1] Alissa Cowan MD, [facility] CPT-4: 12557 11/09/2017 65535 EST. PATIENT, LEVEL IV Diagnosis: Chronic pain syndrome[ICD10: G89.4] Diagnosis: Low back pain[ICD10: M54.5] Diagnosis: Generalized anxiety disorder[ICD10: F41.1] Diagnosis: Major depressive disorder, single episode, moderate[ICD10: F32.1] Alissa Cowan MD, [facility] CPT-4: 46125 10/19/2017 OFFICE VISIT, NEW - LEVEL 4 Diagnosis: Chronic pain syndrome[ICD10: G89.4] Diagnosis: Low back pain[ICD10: M54.5] Diagnosis: Headache[ICD10: R51] Diagnosis: Generalized anxiety disorder[ICD10: F41.1] Diagnosis: Major depressive disorder, single episode, moderate[ICD10: F32.1] Diagnosis: Gastro-esophageal reflux disease without esophagitis[ICD10: K21.9] Diagnosis: Paroxysmal atrial fibrillation[ICD10: I48.0] Alissa Cowan MD, [facility] CPT-4: 55550 09/30/2017 Plan of Care Planned Activity Notes [...] worsen. 06/27/2018 Appointment: Alissa Jimenez WPtel: [phone] [facility] (15 min) Moderate 06/27/2018 Patient Education: [...] medication. 06/20/2018 Appointment: Alissa Jimenez WPtel: [phone] [facility] (15 min) Moderate 06/20/2018 Patient Education: Patient [...] over-medication. 05/09/2018 App[facility]ment: [phone] ([facility] [place]) Moderate 05/09/2018 Patient Education: Patient Medication Summary Completed 05/09/2018 Appointment: [phone] (30 min) Complex 03/22/2018 Referral: External, Ordering Provider they will call him for appt Initiated Care Plan: Referral Order SNOMED-CT : [id number] Pending 03/13/2018 Visit Plan: Chronic Pain Syndrome [...] to urology 03/11/2018 Appointment: [facility] Jimenez [phone] [place] (15 min) Moderate 03/11/2018 Patient Education: [...] indicated. 01/18/2018 Appointment: [facility] Jimenez [phone] [place] (15 min) Moderate 01/18/2018 Patient Education: [...] medications. 12/10/2017 Appointment: [facility] Jimenez [phone] [place] (30 min) Complex 12/10/2017 Patient Education: Patient Medication Summary Completed 12/10/2017 Appointment: [facility] Jimenez [phone] [place] (30 min) Complex 12/07/2017 Appointment: Alissa Jimenez [phone] [place] (15 min) Moderate 11/19/2017 Visit Plan: [...] medications. 10/19/2017 Appointment: [facility] Jim[phone] (30 min) Complex 10/19/2017 Patient Education: Patient [...] uncontrolled. 09/30/2017 Appointment: [facility] Jimenez [phone] New Patient 09/30/2017 Patient Education: Patient Medication [...] Referral to urology - Todd Rodrigez fax [phone] rylan FRITZ in [place] . Anxiety - the patient has uncontrolled [...]
--- OUTSIDE RECORDS SUMMARY | 2018-11-24 05:07 | XMS REPORT | CCD ---
Author Author Alissa Jimenez Organization [facility] Address [address] [place] [address] Phone Care Team Providers Care Cnc Maintenance Technician Name Role Phone PP Unavailable CCM Unavailable Summary Purpose Interface Exchange Insurance Providers Payer name Policy type / Coverage type Covered green party ID Effective Begin Date Effective End Date [employer] - Primary Medicaid [id number] 2017 Unknown Family history Father Diagnosis Age At Onset No Known Diseases N/A Mother Diagnosis Age At Onset No Known Diseases N/A Social History Social History Element Codes Description Effective Dates Marital status Unknown Single 09/30/2017 Employment Unknown Currently unemployed 09/30/[address]: 4016132 Former smoker 09/30/[address]: 970910098 Never drinks alcohol 09/30/2017 On Disability Unknown Yes 09/30/2017 Allergies, Adverse Reactions, Alerts Allergies, Adverse Reactions, Alerts data not found Past Medical History Illness Codes Condition Status Onset Date Resolved Date Chronic pain syndrome ICD-9: 338.4 ICD-10: G89.4 Active 09/30/2017 Unknown Gastro-esophageal reflux disease without esophagitis ICD-9: 530.81 ICD-10: K21.9 Active 09/30/2017 Unknown Generalized anxiety disorder ICD-9: 300.00 ICD-10: F41.1 Active 09/30/2017 Unknown Headache ICD-9: 784.0 ICD-10: R51 Active 09/30/2017 Unknown Low back pain ICD-9: 724.2 ICD-10: M54.5 Active 09/30/2017 Unknown Major depressive disorder, single episode, moderate ICD-9: 296.22 ICD-10: F32.1 Active 09/30/2017 Unknown Paroxysmal atrial fibrillation ICD-9: 427.31 ICD-10: I48.0 Active 09/30/2017 Unknown Problems Condition Codes Effective Dates Condition Status Chronic pain syndrome ICD-9: 338.4 ICD-10: G89.4 09/30/2017 Active Gastro-esophageal reflux disease without esophagitis ICD-9: 530.81 ICD-10: K21.9 09/30/2017 Active Generalized anxiety disorder ICD-9: 300.00 ICD-10: F41.1 09/30/2017 Active Headache ICD-9: 784.0 ICD-10: R51 09/30/2017 Active Low back pain ICD-9: 724.2 ICD-10: M54.5 09/30/2017 Active Major depressive disorder, single episode, moderate ICD-9: 296.22 ICD-10: F32.1 09/30/2017 Active Paroxysmal atrial fibrillation ICD-9: 427.31 ICD-10: I48.0 09/30/2017 Active Medications Medication Codes Instructions Start Date Stop Date Status Fill Instructions prednisone 20 mg tablet RxNorm: 696841 2 Tablet(s) PO daily 10/24/2017 Inactive hydrocodone 5 mg-acetaminophen 325 mg tablet RxNorm: 324496 1 Tablet(s) PO TID as needed for pain 10/14/2017 No Stop Date Active Eliquis 5 mg tablet RxNorm: 4959335 1 Tablet(s) PO BID No Start Date Active pantoprazole 40 mg tablet,delayed release RxNorm: 149672 1 Tablet(s) PO daily No Start Date Active alprazolam 1 mg tablet RxNorm: 330520 1 Tablet(s) PO TID as needed anxiety No Start Date Active flecainide 100 mg tablet RxNorm: 538543 1 Tablet(s) PO BID No Start Date Active duloxetine 60 mg capsule,delayed release RxNorm: 834800 2 Capsule(s) PO daily No Start Date Active hydrocodone 5 mg-acetaminophen 325 mg tablet RxNorm: 135825 1 Tablet(s) PO TID as needed for pain No Start Date 10/13/2017 Inactive Medication Administered No Medication Administered data Immunizations No Immunization data Assessments Condition Codes Effective Dates Paroxysmal atrial fibrillation ICD-10: I48.0 ICD-9: 427.31 09/30/2017 Chronic pain syndrome ICD-10: G89.4 ICD-9: 338.4 09/30/2017 Gastro-esophageal reflux disease without esophagitis ICD-10 : K21.9 ICD-9: 530.81 09/30/2017 Major depressive disorder, single episode, moderate ICD-10: F32.1 ICD-9: 296.22 09/30/2017 Low back pain ICD-10: M54.5 ICD-9: 724.2 09/30/2017 Generalized anxiety disorder ICD-10: F41.1 ICD-9: 300.00 09/30/2017 Headache ICD-10: R51 ICD-9: 784.0 09/30/2017 Reason For Visit Reason For Visit Effective Dates Notes headache 09/30/2017 Results No Results data Review of Systems System Result Effective Dates Constitutional recent illness 09/30/2017 Constitutional No chills [...] and affect Affect: flat 09/30/2017 None Procedures No Procedures data Vital Signs Date Vital 09/30/2017 Blood Pressure 1: 130/88 Code : 8480-6 BMI: 31.3 Code : 44229-4 Heart Rate 1 : 101 bpm Height: 6' SpO2: 98% Weight: 231 lbs Functional Status No Functional Status data History of Present Illness Symptom Name Status Result Effective Date Notes headache Quality chronic 09/30/2017 None headache Quality [...] data Encounters Encounter Performer Location Codes Date OFFICE VISIT, NEW - LEVEL 4 Diagnosis: Chronic pain syndrome[ICD10: G89.4] Diagnosis: Low back pain[ICD10: M54.5] Diagnosis: Headache[ICD10: R51] Diagnosis: Generalized anxiety disorder[ICD10: F41.1] Diagnosis: Major depressive disorder, single episode, moderate[ICD10: F32.1] Diagnosis: Gastro-esophageal reflux disease without esophagitis[ICD10: K21.9] Diagnosis: Paroxysmal atrial fibrillation[ICD10: I48.0] [facility] CPT-4: 90653 09/30/2017 Plan of Care Planned Activity Notes Codes Status Date Appointment: Alissa Jimenez WPtel: [facility] ([facility] Complex 10/19/2017 Visit Plan: Chronic Pain Syndrome - [...] rate is becoming uncontrolled. 09/30/2017 Appointment: Alissa iJmenez WPtel: [facility] New Patient 09/30/2017 Patient Education: Patient Medication Summary Completed 09/30/2017 Instructions Comment . Chronic Pain Syndrome - [...]
--- OUTSIDE RECORDS SUMMARY | 2018-11-24 05:07 | XMS REPORT | CCD ---
Author Author Alissa Jimenez Organization [facility] Address [address] [place] [address] Phone Care Team Providers Care Portable Canteen Operator Name Role Phone PP Unavailable CCM Unavailable Summary Purpose Interface Exchange Insurance Providers Payer name Policy type / Coverage type Covered alliance party ID Effective Begin Date Effective End Date [employer] - Primary Medicaid [id number] 2017 Unknown Family history Father Diagnosis Age At Onset No Known Diseases N/A Mother Diagnosis Age At Onset No Known Diseases N/A Social History Social History Element Codes Description Effective Dates Marital status Unknown Single 09/30/2017 Employment Unknown Currently unemployed 09/30/[address]: 3798412 Former smoker 09/30/[address]: 672181838 Never drinks alcohol 09/30/2017 On Disability Unknown [...] Fill Instructions prednisone 20 mg tablet RxNorm: 114500 2 Tablet(s) PO daily 10/24/2017 Inactive hydrocodone 5 mg-acetaminophen 325 mg tablet RxNorm: 352155 1 Tablet(s) PO TID as needed for pain 10/14/2017 No Stop Date Active Eliquis 5 mg tablet RxNorm: 3951068 1 Tablet(s) PO BID No Start Date Active pantoprazole 40 mg tablet,delayed release RxNorm: 646976 1 Tablet(s) PO daily No Start Date Active alprazolam 1 mg tablet RxNorm: 101778 1 Tablet(s) PO TID as needed anxiety No Start Date Active flecainide 100 mg tablet RxNorm: 286966 1 Tablet(s) PO BID No Start Date Active duloxetine 60 mg capsule,delayed release RxNorm: 556243 2 Capsule(s) PO daily No Start Date Active hydrocodone 5 mg-acetaminophen 325 mg tablet RxNorm: 869823 1 Tablet(s) PO TID as needed for [...] Code : 8480-6 BMI: 31.3 Code : 00953-9 Heart Rate 1 : 101 bpm Height: [...] Paroxysmal atrial fibrillation[ICD10: I48.0] Alissa Cowan MD, [facility] CPT-4: 78693 09/30/2017 Plan of Care Planned Activity Notes Codes Status Date Appointment: Alissa Jimenez WPtel: [facility] (30 min) Complex 10/19/2017 Appointment: Alissa Jimenez WPtel: [facility] New Patient 09/30/2017 Patient Education: Patient Medication Summary Completed 09/30/2017 Instructions No Instructions
--- OUTSIDE RECORDS SUMMARY | 2018-11-24 05:08 | XMS REPORT | Continuity of Care Document ---
Author Author [facility] Organization [facility] Address Unknown Phone Unavailable Care Team Providers Care Silk Opener Name Role Phone [facility] OF PCP Insurance Providers Payer Name Policy Number Subscriber Name Relationship Marin [employer] Amer[employer]p [id number] Juan Carlos Gaffney 16 Self / Same As Patient Advance Directives Directive Response Recorded Date/Time Advance Directives No 02/16/15 10:47pm Health Care Power of Coil Placer No 02/16/15 10:47pm Organ Donor No 02/16/15 10:47pm Resuscitation Status Full Code 02/16/15 10:47pm Problems No known problems or medical conditions. Medications Medication Dose Route Sig Days/Qty Instructions Order Date Discontinued Date Status Lansoprazole PO DAILY 02/06/10 10/29/10 Discontinued [Amitriptyline] 10/29/10 02/01/11 Discontinued [Diazepam] 10/29/10 02/01/11 Discontinued [Hydrocodone] 10/29/10 02/01/11 Discontinued [Muscle Relaxer] 10/29/10 02/01/11 Discontinued Alprazolam 02/01/11 02/14/11 Discontinued Sulfamethoxazole/Trimethoprim 02/01/11 02/14/11 Discontinued Oxycodone Hcl 02/01/11 02/21/11 Discontinued [Stool Softener] 02/01/11 02/21/11 Discontinued Promethazine Hcl 25 Mg PO NEEDED 02/14/11 02/21/11 Discontinued [Lanzoprazole] 30 Mg PO DAILY 02/14/11 02/21/11 Discontinued Oxycodone HCl (Oxycodone IR) PO 3HR PRN 02/14/11 02/21/11 Discontinued Warfarin Sodium 7.5 Mg PO DAILY@18 03/23/11 03/24/11 Discontinued Linezolid 600 Mg PO TWICE A DAY 30 Days 03/24/11 09/06/11 Discontinued Acetaminophen/Hydrocodone Bitart 1 - 2 Tab PO EVERY 6 HOURS PRN 35 Qty 03/24/11 02/18/15 Discontinued Diazepam 1 Tab PO THREE TIMES A DAY 09/06/11 02/18/15 Discontinued Naproxen 1 Each PO TID PRN 20 Qty FOR PAIN 09/20/11 02/18/15 Discontinued Aspirin 81 Mg PO DAILY 100 Qty 02/18/15 Active Doxycycline Hyclate (Vibramycin) 1 Each PO TWICE A DAY 20 Qty 02/18/15 Active Social History Social History Problem Response Recorded Date/Time Alcohol Use Past History 02/16/2015 11:02pm Recreational Drug Use No 02/16/2015 11:02pm Recent Foreign Travel No 02/16/2015 10:57pm Recent Infectious Disease Exposure No 02/16/2015 10:57pm Hospitalization with Isolation Denies 02/18/2015 12:45pm Sexually Transmitted Disease No 02/16/2015 10:57pm Smoking Status Never a Smoker 02/16/2015 10:47pm Query Response Start Date Stop Date Smoking Status Never a Smoker Hospital Discharge Instructions Patient Instructions Physician Instructions Follow Up/Plan Appointment with Dr. Christianson in [facility] CARDIAC CATH DISCHARGE INSTRUCTIONS Cardiac Rehab Please be expecting a follow up call from Cardiac Rehab within in one week. *Hold Metformin for 48 hours post heart cath. ACTIVITY * Go Home directly and rest. * Limit activity of the leg (or wrist if it was used) for 7 days including aerobics, swimming, jogging, bicycling, etc. * Restrict stair-climbing for 7 days if possible, if not, climb up with your non-cath leg, then bring together on the same step. * Avoid lifting, pushing, pulling or excessive movement of the affected extremity for 7 days. * Customary sexual activity may be resumed after 2 days-use caution not to use a position that strains or causes pain to the affected extremity. * No driving for 24 hours. * NO SMOKING. * Avoid straining for bowel movements for 7 days. * Gentle walking on level ground is allowed. * Returning to work will depend on the type of procedure and the results. Your doctor will discuss this with you. CALL YOUR DOCTOR FOR ANY OF THE FOLLOWING: *If bleeding from the puncture site occurs- Apply gentle pressure to site with clean cloth and call your doctor or EMS. * If a knot or lump forms under the skin, increases in size, or causes pain. * If bruising appears to be worsening or moving further down your leg instead of disappearing. * Temperature above 101 F. CARE OF YOUR GROIN INCISION; * Bruising or purple discoloration of the skin near the puncture site is common. * You may shower only, no bathtub bathing for 5 days. Be careful to avoid slipping as your leg may feel stiff. * If a closure device was used on your femoral artery, please see the attached guide regarding care of the device and your leg. * REMOVE the dressing from your groin the next day after your procedure in the shower. CARE OF YOUR WRIST INCISION; * Bruising or purple discoloration of the skin near the puncture site is common. * You may shower. * DO NOT submerge wrist. * Remove dressing in 24 hours. Plan of Care Discharge Date 02/18/15 12:04pm Disposition 30 STILL A PATIENT Instructions/Education Provided Healthy Heart Diet (DC) Forms Provided Follow-Up Fax PDI Medical Prescriptions See Medications Section Referrals (Unspecified) 1 Week Reason(s) for Referral: FOLLOW UP WITH DR. CHRISTIANSON'S OFFICE NEXT WEEK. Additional Instructions/Education FOLLOW UP WITH DR. CHRISTIANSON'S OFFICE NEXT WEEK. Functional Status Query Response Date Recorded Comprehension Ability Understands Concepts February 18, 2015 11:48am Allergies, Adverse Reactions, Alerts Allergen Type Severity Reaction Status Last Updated No Known Drug Allergies Active 10/29/10 Immunizations Name Given Type Tetanus Booster (TDap) Unknown Historical pneumococcal polysaccharide PPV23 02/18/15 Administered Vital Signs Acute Vital Signs Vital Response Date/Time Temperature (Fahrenheit) 98.4 degrees F (97.6 - 99.5) Temperature (Calculated Celsius) 36.75123 degrees C (36.4 - 37.5) Temperature Source Temporal Pulse Rate (adult) 79 bpm (60 - 90) Respiratory Rate 20 bpm (12 - 24) O2 Sat by Pulse Oximetry 96 % (88 - 100) Blood Pressure 132/81 mm Hg Pain Pain Intensity 0 Height (Feet) 6 feet Height (Calculated Centimeters) 182.514690 cm Weight (Pounds) 223 pounds Weight (Ounces) 4.8 oz Weight (Calculated Grams) 474880.177 gm Weight (Calculated Kilograms) 101.482800 kilograms Height 6 ft 0 in Weight 223 lb Body Mass Index 30.3 kg/m^2 Results Laboratory Results Test Name Result Units Flags Reference Collection Date/Time Result Date/ Time Comments White Blood Count 10.7 10^3/uL 4.3-11.0 02/18/2015 6:10a02/18/2015 6: 42am Red Blood Count 4.44 10^6/uL 4.35-5.85 02/18/2015 6:02/18/2015 6: 42am Hemoglobin 12.8 G/DL L 13.3-17.7 02/18/2015 6:02/18/2015 6:42am Hematocrit 39 % L 40-54 02/18/2015 6:02/18/2015 6:42am Mean Corpuscular Volume 88 FL 80-99 02/18/2015 6:02/18/2015 6: 42am Mean Corpuscular Hemoglobin 29 PG 25-34 02/18/2015 6:02/18/2015 6: 42am Mean Corpuscular Hemoglobin Concent 33 G/DL 32-36 02/18/2015 6:09/2014 6:42am Red Cell Distribution Width 15.4 % H 10.0-14.5 02/18/2015 6:2014 6:42am Platelet Count 273 10^3/uL 130-400 02/18/2015 6:02/18/2015 6:42am Mean Platelet Volume 10.1 FL 7.4-10.4 02/18/2015 6:10a02/18/2015 6: 42am Prothrombin Time 13.3 SEC 12.2-14.7 02/17/2015 4:45am 02/17/2015 5: 21am INR Comment 1.0 0.8-1.4 02/17/2015 4:45am 02/17/2015 5:21am INTERPRETIVE DATA SUGGESTED THERAPEUTIC RANGE FOR INR'S: VENOUS THROMBOSIS, PULMONARY EMBOLISM, OR PREVENTION OF SYSTEMIC EMBOLISM (EG. IN ATRIAL FIBRILLATION): 2.0 - 3.0 MECHANICAL PROSTHETIC HEART VALVES: 2.5 - 3.5* *NOTE: INR'S UP TO 4.5 MAY BE NECESSARY IN SELECTED GROUPS OF HIGH RISK PATIENTS. [employer] CONSENSUS CONFERENCE ON ANTITHROMBOTIC THERAPY (2000). Activated Partial Thromboplast Time 29 SEC 24-35 02/17/2015 4:45am 5:21am Sodium Level 140 MMOL/L 135-145 02/18/2015 6:10a02/18/2015 6:41am Potassium Level 4.2 MMOL/L 3.6-5.0 02/18/2015 6:10a02/18/2015 6:41am Chloride Level 114 MMOL/L H 98-107 02/18/2015 6:10a02/18/2015 6:41am Carbon Dioxide Level 20 MMOL/L L 21-32 02/18/2015 6:10a02/18/2015 6: 41am Blood Urea Nitrogen 16 MG/DL 7-18 02/18/2015 6:10a02/18/2015 6:41am Creatinine 0.75 MG/DL 0.60-1.30 02/18/2015 6:10a02/18/2015 6:41am BUN/Creatinine Ratio 21 02/18/2015 6:10a02/18/2015 6:41am Estimat Glomerular Filtration Rate > 60 02/18/2015 6:10a2014 6:41am GFR INTERPRETIVE DATA UNITS FOR ESTIMATED GFR (eGFR): mL/min/1.73 M2 REFERENCE RANGE FOR ESTIMATED GFR (eGFR) eGFR NORMAL eGFR >60 MODERATELY DECREASED eGFR 30-59 SEVERLY DECREASED eGFR 15-29 KIDNEY FAILURE <15 (OR DIALYSIS) Glucose Level 96 MG/DL 70-105 02/18/2015 6:10a02/18/2015 6:41am Calcium Level 8.3 MG/DL L 8.5-10.1 02/18/2015 6:10a02/18/2015 6:41am Magnesium Level 2.1 MG/DL 1.8-2.4 02/17/2015 4:45am 02/17/2015 5:31am Total Bilirubin 0.5 MG/DL 0.1-1.0 02/17/2015 4:45am 02/17/2015 5:31am Alkaline Phosphatase 59 U/L 40-136 02/17/2015 4:45am 02/17/2015 5:31am Aspartate Amino Transf (AST/SGOT) 16 U/L 5-34 02/17/2015 4:45am 2014 5:31am Alanine Aminotransferase (ALT/SGPT) 27 U/L 0-55 02/17/2015 4:45am 02/17 5:31am Troponin I < 0.30 NG/ML <0.30 02/17/2015 4:45am 02/17/2015 5:52am B-Type Natriuretic Peptide 159.9 PG/ML H <100.0 02/17/2015 4:45am 2014 5:52am Total Protein 5.2 G/DL L 6.4-8.2 02/17/2015 4:45am 02/17/2015 5:31am Albumin 3.0 G/DL L 3.2-4.5 02/17/2015 4:45am 02/17/2015 5:31am Triglycerides Level 61 MG/DL <150 02/17/2015 4:45am 02/17/2015 5:31am Cholesterol Level 178 MG/DL < 200 02/17/2015 4:45am 02/17/2015 5:31am HDL Cholesterol 33 MG/DL L 40-60 02/17/2015 4:45am 02/17/2015 5:31am LDL Cholesterol Direct 127 MG/DL 1-129 02/17/2015 4:45am 02/17/2015 5: 31am VLDL Cholesterol 12 MG/DL 5-40 02/17/2015 4:45am 02/17/2015 5:31am Thyroid Stimulating Hormone (TSH) 1.00 UIU/ML 0.35-4.94 02/17/2015 4: 45am 02/17/2015 5:52am Digoxin Level 0.44 NG/ML L 0.80-2.00 02/17/2015 4:45am 02/17/2015 5:52am Procedures Procedure Status Date Provider(s) Transesophageal echocardiography with contrast completed 02/17/15 GILES CHRISTIANSON MD Tracing only of electrocardiogram completed 02/17/15 GLIES CHRISTIANSON MD Tracing only of electrocardiogram completed 02/17/15 GILES CHRISTIANSON MD Encounters Encounter Location Date/Time Discharged Inpatient Via [facility] 02/16/15 10:13pm
[2018-11-24 05:11] LABS: HEMATOCRIT 43 % (40-54); HEMOGLOBIN 14.4 G/DL (13.3-17.7); MEAN CORPUSCULAR HEMOGLOBIN 29 PG (25-34); MEAN CORPUSCULAR HGB CONC 33 G/DL (32-36); MEAN CORPUSCULAR VOLUME 87 FL (80-99); PLATELET COUNT 427 10^3/uL (130-400); RED CELL DISTRIBUTION WIDTH 14.2 % (10.0-14.5); WHITE BLOOD COUNT 11.7 10^3/uL (4.3-11.0)
--- OUTSIDE RECORDS SUMMARY | 2018-11-24 05:11 | XMS REPORT | Continuity of Care Document ---
Author Author [facility] Address Unknown Phone Unavailable Allergies Active Description Code Type Severity Reaction Onset Reported/Identified Relationship to Patient Clinical Status Yes NO KNOWN DRUG ALLERGIES UNKNOWN NO KNOWN DRUG ALLERG Yes Darvocet-N 100 Drug Allergy N /A N/A 10/10/2009 Yes Darvocet-N 100 Drug Allergy 10/10/2009 Yes prednisone 10 mg tablet Drug Allergy N/A N/A 07/23/2014 Yes tramadol 50 mg tablet Drug Allergy N/A N/A 11/20/2014 Yes amphetamine Drug Allergy N/A N/A 11/20/2014 Yes Benzodiazepines Drug Allergy N/A N/A 11/20/2014 Yes hydrocodone Drug Allergy N/A N/A 11/20/2014 Yes No Known Drug Allergies [id number] Drug Allergy Unknown N/A 07/14/2017 Medications Medication Packaging Start Date Stop Date Route Dosage Sig NORMAL SALINE 1000CC IV BAG INJ 0.9 % (NS 1000CC IV BAG) ml 06/28/2017 07/13/2017 CONTINUOUSEVERY 0 Hour HYDROXYZINE TAB 25 MG (ATARAX) MG 06/29/2017 06/29/2017 ONCE&0040 NORMAL SALINE 1000CC IV BAG INJ 0.9 % (NS 1000CC IV BAG) ml 08/05/2018 08/05/2018 ONCE&1425 ALPRAZOLAM TAB 0.25 MG (XANAX) MG 08/05/2018 08/05/2018 PRN ONCE Metoprolol IV soln 5mg/5cc vial (Lopressor) MG 08/05/2018 08/05/2018 ONCE&1443 MORPHINE SYRINGE INJ 2 MG/CC MG 08/05/2018 PRN ONCE POTASSIUM CHLORIDE TAB 20 MEQ (K-DUR) MEQ 08/05/2018 08/05/2018 ONCE&1549 OXYCODONE 5MG/APAP 325MG TAB(PERCOCET-5) TAB 08/05/2018 08/12/2018 PRN QID CARVEDILOL TAB 6.25 MG (COREG) MG 08/05/2018 08/11/2018 QPM&2000 ALPRAZOLAM TAB 1 MG (XANAX) MG 08/15/2018 PRN TID APIXABAN TAB 5 MG (ELIQUIS) MG 08/12/2018 BID&0800,2000 ACETAMINOPHEN ORAL TABLET 325mg(Tylenol) MG 08/05/2018 08/05/2018 ONCE&2013 LEVALBUTEROL CONCENTRATE SOLN 1.25 MG/0.5CC (XOPENEX CONCENTRATE) MG 08/05/2018 08/15/2018 QID&0600,1100,1600,2100 ALPRAZOLAM TAB 0.5 MG (XANAX) MG 08/15/2018 PRN Q8H CARVEDILOL TAB 12.5 MG (COREG) MG 08/06/2018 08/12/2018 QAM&0800 LEVOTHYROXINE TAB 25MCG (SYNTHROID) MCG 08/06/2018 08/12/2018 Daily&0900 Problems Date Dx Coded Attending Type Code Diagnosis Diagnosed By 04/26/2008 784.0 headache 04/26/2008 RYNE ROGERS BRENNEN JAUN 784.0 headache 04/26/2008 784.0 headache 04/26/2008 RYNE ROGERS BRENNEN JAUN 784.0 headache 04/26/2008 RYNE ROGERS BRENNEN JAUN 784.0 headache 04/26/2008 RYNE ROGERS BRENNEN JAUN 784.0 headache 04/26/2008 PARAM MELCHOR, SHERRON K 784.0 headache 04/26/2008 RYAN HALL [...] DO, SHERRON K 784.0 headache 04/26/2008 BEVERLEY PROJECT CONTROL MANAGER, OLIVIA M 784.0 headache 04/26/2008 VIRGEN DO, SHERRON K 784.0 headache 04/26/2008 VIRGEN DO, SHERRON K 784.0 headache 04/26/2008 BEVERLEY PROJECT CONTROL MANAGER, OLIVIA M 784.0 headache 04/26/2008 VIRGEN DO, SHERRON K 784.0 headache 06/09/2008 266.2 B12 DEF W/O ANEMIA 06/09/2008 MICHELE MACADAM RAKER, BRENNEN ZAMORANO 266.2 B12 DEF W/O ANEMIA 06/09/2008 266.2 B12 DEF W/O ANEMIA 06/09/2008 MICHELE MACADAM RAKER, BRENNEN ZAMORANO 266.2 B12 DEF W/O ANEMIA 06/09/2008 MICHELE MACADAM RAKER, BRENNEN ZAMORANO 266.2 B12 DEF W/O ANEMIA 06/09/2008 MICHELE MACADAM RAKER, BRENNEN ZAMORANO 266.2 B12 DEF W/O ANEMIA 06/09/2008 VIRGEN DO, SHERRON K 266.2 B12 DEF W/O ANEMIA 06/09/2008 LAURA MACADAM RAKER, RYAN L 266.2 B12 DEF W/O ANEMIA [...] 266.2 B12 DEF W/O ANEMIA 06/09/2008 BEVERLEY PROJECT CONTROL MANAGER, OLIVIA M 266.2 B12 DEF W/O ANEMIA 06/09/2008 VIRGEN DO, SHERRON K 266.2 B12 DEF W/O ANEMIA 06/09/2008 VIRGEN DO, SHERRON K 266.2 B12 DEF W/O ANEMIA 06/09/2008 OLIVIA AUGUSTINE M 266.2 B12 DEF W/O ANEMIA 06/09/2008 VIRGEN DO, SHERRON K 266.2 B12 DEF W/O ANEMIA 07/04/2008 285.9 ANEMIA 07/04/2008 536.8 Dyspepsia 07/04/2008 MICHELE MACADAM RAKER, BRENNEN JAUN 285.9 ANEMIA 07/04/2008 MICHELE MACADAM RAKER, BRENNEN JAUN 536.8 Dyspepsia 07/04/2008 285.9 ANEMIA 07/04/2008 536.8 Dyspepsia 07/04/2008 MICHELE MACADAM RAKER, BRENNEN JAUN 285.9 ANEMIA 07/04/2008 MICHELE MACADAM RAKER, BRENNEN JAUN 536.8 Dyspepsia 07/04/2008 MICHELE MACADAM RAKER, BRENNEN JAUN 285.9 ANEMIA 07/04/2008 MICHELE MACADAM RAKER, BRENNEN JAUN 536.8 Dyspepsia 07/04/2008 MICHELE MACADAM RAKER, BRENNEN JAUN 285.9 ANEMIA 07/04/2008 MICHELE MACADAM RAKER, BRENNEN LEPEH 536.8 Dyspepsia 07/04/2008 VIRGEN DO, SHERRON K 285.9 ANEMIA 07/04/2008 VIRGEN DO, SHERRON K 536.8 Dyspepsia 07/04/2008 MADL MACADAM RAKER, RYAN L 285.9 ANEMIA 07/04/2008 MADL MACADAM RAKER, RYAN L 536.8 Dyspepsia 07/04/2008 VIRGEN DO, [...] 09/04/2008 528.9 Mouth Pain 09/04/2008 BRENNEN MICHELE APRN 528.9 Mouth Pain 09/04/2008 528.9 Mouth Pain 09/04/2008 BRENNEN MICHELE APRN 528.9 Mouth Pain 09/04/2008 BRENNEN MICHELE APRN 528.9 Mouth Pain 09/04/2008 BRENNEN MICHELE APRN 528.9 Mouth Pain 09/04/2008 VIRGEN DO, [...] K 528.9 Mouth Pain 09/04/2008 OLIVIA AUGUSTINE 528.9 Mouth Pain 09/04/2008 VIRGEN DO, SHERRON K 528.9 Mouth Pain 09/04/2008 VIRGEN DO, SHERRON K 528.9 Mouth Pain 09/04/2008 OLIVIA AUGUSTINE 528.9 Mouth Pain 09/04/2008 VIRGEN DO, SHERRON [...] 780.79 feeling tired or poorly 01/23/2009 MADL MACADAM RAKER, RYAN L 302.72 MALE ERECTILE DISORDER 01/23/2009 MADL MACADAM RAKER, RYAN L 780.79 feeling tired or poorly [...] AUGUSTINE M 302.72 MALE ERECTILE DISORDER 01/23/2009 OLIVIA AUGUSTINE M 780.79 feeling tired or poorly 01/23/2009 VIRGEN DO, SHERRON K 302.72 MALE ERECTILE DISORDER 01/23/2009 VIRGEN DO, SHERRON K 780.79 feeling tired or poorly 03/06/2009 789.00 Abdominal Pain 03/06/2009 MICHELE MACADAM RAKER, BRENNEN JAUN 789.00 Abdominal Pain 03/06/2009 789.00 Abdominal Pain 03/06/2009 MICHELE MACADAM RAKER, BRENNEN JAUN 789.00 Abdominal Pain 03/06/2009 MICHELE MACADAM RAKER, BRENNEN LEPEH 789.00 Abdominal Pain 03/06/2009 MICHELE MACADAM RAKER, BRENNEN LEPEH 789.00 Abdominal Pain 03/06/2009 VIRGEN DO, SHERRON K 789.00 Abdominal Pain 03/06/2009 RAFAEL ROGERS RYAN L 789.00 Abdominal Pain 03/06/2009 VIRGEN [...] INSOMNIA 06/13/2009 V04.81 FLU SHOT 06/13/2009 MICHELE MACADAM RAKER, BRENNEN ZAMORANO 307.40 INSOMNIA 06/13/2009 MICHELE MACADAM RAKER, BRENNEN ZAMORANO V04.81 FLU SHOT 06/13/2009 307.40 INSOMNIA 06/13/2009 V04.81 FLU SHOT 06/13/2009 MICHELE MACADAM RAKER, BRENNEN ZAMORANO 307.40 INSOMNIA 06/13/2009 MICHELE MACADAM RAKER, BRENNEN ZAMORANO V04.81 FLU SHOT 06/13/2009 MICHELE MACADAM RAKER, BRENNEN ZAMORANO 307.40 INSOMNIA 06/13/2009 MICHELE MACADAM RAKER, BRENNEN ZAMORANO V04.81 FLU SHOT 06/13/2009 MICHELE MACADAM RAKER, BRENNEN ZAMORANO 307.40 INSOMNIA 06/13/2009 MICHELE MACADAM RAKER, BRENNEN ZAMORANO V04.81 FLU SHOT 06/13/2009 VIRGEN DO, SHERRON K 307.40 INSOMNIA 06/13/2009 VIRGEN DO, SHERRON K V04.81 FLU SHOT 06/13/2009 MADL MACADAM RAKER, RYAN L 307.40 INSOMNIA 06/13/2009 MADL MACADAM RAKER, RYAN L V04.81 FLU SHOT 06/13/2009 VIRGEN [...] DO, SHERRON K V04.81 FLU SHOT 06/13/2009 BEVERLEY DIAZ, OLIVIA M 307.40 INSOMNIA 06/13/2009 BEVERLEY DIAZ, OLIVIA M V04.81 FLU SHOT 06/13/2009 VIRGEN DO, [...] Spasm 09/11/2009 847.9 Sprain Back 09/11/2009 MICHELE SUE BRENNEN JAUN 728.85 Muscle Spasm 09/11/2009 MICHELE SUE BRENNEN JAUN 847.9 Sprain Back 09/11/2009 728.85 Muscle Spasm 09/11/2009 847.9 Sprain Back 09/11/2009 MICHELE SUE BRENNEN JAUN 728.85 Muscle Spasm 09/11/2009 MICHELE MACADAM RAKER, BRENNEN JAUN 847.9 Sprain Back 09/11/2009 MICHELE MACADAM RAKER, BRENNEN JAUN 728.85 Muscle Spasm 09/11/2009 MICHELE MACADAM RAKER, BRENNEN JAUN 847.9 Sprain Back 09/11/2009 MICHELE MACADAM RAKER, BRENNEN JAUN 728.85 Muscle Spasm 09/11/2009 MICHELE MACADAM RAKER, BRENNEN JAUN 847.9 Sprain Back 09/11/2009 VIRGEN DO, SHERRON K 728.85 Muscle Spasm 09/11/2009 VIRGEN DO, SHERRON K 847.9 Sprain Back 09/11/2009 MADL MACADAM RAKER, RYAN L 728.85 Muscle Spasm 09/11/2009 RAFAEL ROGERS, RYAN L 847.9 Sprain Back 09/11/2009 VIRGEN [...] K 847.9 Sprain Back 09/11/2009 VIRGEN DO, SEHRRON K 728.85 Muscle Spasm 09/11/2009 VIGREN DO, SHERRON K 847.9 Sprain Back 09/11/2009 OLIVIA AUGUSTINE 728.85 Muscle Spasm 09/11/2009 BEVERLEY DIAZ, OLIVIA Tang 847.9 Sprain Back 09/11/2009 VIRGEN DO, SHERRON K 728.85 Muscle Spasm 09/11/2009 VIRGEN DO, SHERRON K 847.9 Sprain Back 10/23/2009 NODX No Diagnosis 10/23/2009 MICHEEL MACADAM RAKER, BRENNEN ZAMORANO NODX No Diagnosis 10/23/2009 NODX No Diagnosis 10/23/2009 MICHELE MACADAM RAKER, BRENNEN ZAMORANO NODX No Diagnosis 10/23/2009 MICHELE MACADAM RAKER, BRENNEN ZAMORANO NODX No Diagnosis 10/23/2009 MICHELE MACADAM RAKER, BRENNEN ZAMORANO NODX No Diagnosis 10/23/2009 VIRGEN DO, SHERRON K NODX No Diagnosis 10/23/2009 RYAN HALL APRN NODX No Diagnosis 10/23/2009 VIRGEN DO, SHERRON [...] DO, SHERRON K NODX No Diagnosis 10/23/2009 OLIVIA AUGUSTINE M NODX No Diagnosis 10/23/2009 VIRGEN DO, [...] BRENNEN JAUN 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 11/06/2009 RYNE ROGERS BRENNEN JAUN 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 11/06/2009 BRENNEN MICHELE APRN 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 11/06/2009 VIRGEN DO, SHERRON K 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 11/06/2009 MADL MACADAM RAKER, RYAN L 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 11/06/2009 [...] 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 11/06/2009 OLIVIA AUGUSTINE 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 11/06/2009 VIRGEN DO, SHERRON K 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 11/06/2009 VIRGEN DO, SHERRON K 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 11/06/2009 OLIVIA AUGUSTINE 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 11/06/2009 VIRGEN DO, SHERRON K 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 02/11/2010 Ot 595.2 02/11/2010 Ot 597.80 02/11/2010 Ot 601.1 02/19/2010 300.00 ANXIETY UNSPEC 02/19/2010 MICHELEBRENNEN SUMNER APRN 300.00 ANXIETY UNSPEC 02/19/2010 300.00 ANXIETY UNSPEC 02/19/2010 MICHELEBRENNEN SUMNER APRN 300.00 ANXIETY UNSPEC 02/19/2010 MICHELE MACADAM RAKERBRENNEN 300.00 ANXIETY UNSPEC 02/19/2010 MICHELE BRENNEN ROGERS 300.00 ANXIETY UNSPEC 02/19/2010 VIRGEN DO, SHERRON K 300.00 ANXIETY UNSPEC 02/19/2010 MADL KIM ROGERSWNYA L 300.00 ANXIETY UNSPEC 02/19/2010 VIRGEN DO, [...] DO, SHERRON K 300.00 ANXIETY UNSPEC 02/19/2010 BEVERLEY DIAZ, OLIVIA M 300.00 ANXIETY UNSPEC 02/19/2010 VIRGEN DO, SHERRON K 300.00 ANXIETY UNSPEC 02/19/2010 VIRGEN DO, SHERRON K 300.00 ANXIETY UNSPEC 02/19/2010 BEVERLEY DIAZ, OLIVIA M 300.00 ANXIETY UNSPEC 02/19/2010 VIRGEN DO, SHERRON K 300.00 ANXIETY UNSPEC 05/09/2010 719.40 PAIN IN JOINT , SITE UNSPECIFIED 05/09/2010 RYNE ROGERS BRENNEN JAUN 719.40 PAIN IN JOINT, SITE UNSPECIFIED 05/09/2010 719.40 PAIN IN JOINT , SITE UNSPECIFIED 05/09/2010 BRENNEN MICHELE APRN 719.40 PAIN IN JOINT, SITE UNSPECIFIED 05/09/2010 BRENNEN MICHELE APRNH 719.40 PAIN IN JOINT, SITE UNSPECIFIED 05/09/2010 [...] NATURE OF RESPIRATORY SYSTEM 06/13/2010 OLIVIA AUGUSTINE M 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 06/13/2010 VIRGEN DO, SHERRON K 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 06/13/2010 VIRGEN DO SHERRON K 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 06/13/2010 OLIVIA AUGUSTINE M 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 [...] 301.9 PD PERS DIS NOS 07/22/2010 MICHELE MACADAM RAKERBRENNEN 309.81 AN PTSD 07/22/2010 MICHELE MACADAM RAKER, BRENNEN ZAMORANO 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 07/22/2010 MICHELE MACADAM RAKER, BRENNEN ZAMORANO 300.02 AN GEN ANXIETY 07/22/2010 MICHELE MACADAM RAKER, BRENNEN ZAMORANO 301.9 PD PERS DIS NOS 07/22/2010 MICHELE MACADAM RAKER, BRENNEN ZAMORANO 309.81 AN PTSD 07/22/2010 MICHELE MACADAM RAKER, BRENNEN ZAMORANO 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 07/22/2010 MICHELE MACADAM RAKER, BRENNEN ZAMORANO 300.02 AN GEN ANXIETY 07/22/2010 MICHELE MACADAM RAKER, BRENNEN ZAMORANO 301.9 PD PERS DIS NOS 07/22/2010 MICHELE MACADAM RAKER, BRENNEN ZAMORANO 309.81 AN PTSD 07/22/2010 VIRGEN DO, SHERRON K 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 07/22/2010 VIRGEN DO, SHERRON K 300.02 AN GEN ANXIETY 07/22/2010 VIRGEN DO, SHERRON K 301.9 PD PERS DIS NOS 07/22/2010 VIRGEN DO, SHERRON K 309.81 AN PTSD 07/22/2010 MADL MACADAM RAKER, RYAN L 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 07/22/2010 MADL MACADAM RAKER, RYAN L 300.02 AN GEN ANXIETY 07/22/2010 MADL MACADAM RAKER, RYAN L 301.9 PD PERS DIS NOS 07/22/2010 MADL MACADAM RAKER, RYAN L 309.81 AN PTSD 07/22/2010 VIRGEN [...] SHERRON K 309.81 AN PTSD 07/22/2010 BEVERLEY PROJECT CONTROL MANAGER, OLIVIA M 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 07/22/2010 BEVERLEY PROJECT CONTROL MANAGER, OLIVIA M 300.02 AN GEN ANXIETY 07/22/2010 BEVERLEY PROJECT CONTROL MANAGER, OLIVIA M 301.9 PD PERS DIS NOS 07/22/2010 BEVERLEY PROJECT CONTROL MANAGER, OLIVIA M 309.81 AN PTSD 07/22/2010 VIRGEN [...] SHERRON K 309.81 AN PTSD 07/22/2010 BEVERLEY PROJECT CONTROL MANAGER, OLIVIA M 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 07/22/2010 BEVERLEY PROJECT CONTROL MANAGER, OLIVIA M 300.02 AN GEN ANXIETY 07/22/2010 BEVERLEY PROJECT CONTROL MANAGER, OLIVIA M 301.9 PD PERS DIS NOS 07/22/2010 BEVERLEY PROJECT CONTROL MANAGER, OLIVIA M 309.81 AN PTSD 07/22/2010 VIRGEN DO, SHERRON K 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 07/22/2010 VIRGEN DO, SHERRON K 300.02 AN GEN ANXIETY 07/22/2010 VIRGEN DO, SHERRON K 301.9 PD PERS DIS NOS 07/22/2010 VIRGEN DO, SHERRON K 309.81 AN PTSD 08/08/2010 564.1 Irritable Bowel Syndrome 08/08/2010 BRENNEN MICHELE APRN 564.1 Irritable Bowel Syndrome 08/08/2010 564.1 Irritable Bowel Syndrome 08/08/2010 MICHELE MACADAM RAKER, BRENNEN JAUN 564.1 Irritable Bowel Syndrome 08/08/2010 MICHELE MACADAM RAKERBRENNENH 564.1 Irritable Bowel Syndrome 08/08/2010 MICHELEESCOBAR ROGERS BRENNEN ZAMORANO 564.1 Irritable Bowel Syndrome 08/08/2010 VIRGEN DO, SHERRON K 564.1 Irritable Bowel Syndrome 08/08/2010 KIM HALL APRNWNYA Vanessa 564.1 Irritable Bowel Syndrome 08/08/2010 VIRGEN DO, [...] And Subcutaneous Tissue 12/17/2010 RYNE ROGERS BRENNEN JAUN 562.10 Diverticulosis Of Colon (without Hemorrhage) 12/17/2010 RYNE ROGERS BRENNEN LEPEH 709.9 Unspecified Disorder Of Skin And Subcutaneous Tissue 12/17/2010 562.10 Diverticulosis Of Colon (without Hemorrhage) 12/17/2010 709.9 Unspecified Disorder Of Skin And Subcutaneous Tissue 12/17/2010 MICHELE MACADAM RAKER, BRENNEN LEPEH 562.10 Diverticulosis Of Colon (without Hemorrhage) 12/17/2010 MICHELE MACADAM RAKER, BRENNEN LEPEH 709.9 Unspecified Disorder Of Skin And Subcutaneous Tissue 12/17/2010 MICHELE MACADAM RAKER, BRENNEN LEPEH 562.10 Diverticulosis Of Colon (without Hemorrhage) 12/17/2010 MICHELE MACADAM RAKER, BRENNEN LEPEH 709.9 Unspecified Disorder Of Skin And Subcutaneous Tissue 12/17/2010 MICHELE MACADAM RAKER, BRENNEN LEPEH 562.10 Diverticulosis Of Colon (without Hemorrhage) 12/17/2010 MICHELE MACADAM RAKERBRENNENH 709.9 Unspecified Disorder Of Skin And Subcutaneous Tissue 12/17/2010 VIRGEN DO SHERRON K 562.10 Diverticulosis Of Colon (without Hemorrhage) 12/17/2010 VIRGEN DO SHERRON K 709.9 Unspecified Disorder Of Skin And Subcutaneous Tissue 12/17/2010 MADL MACADAM RAKER, RYAN L 562.10 Diverticulosis Of Colon (without Hemorrhage) 12/17/2010 MADL MACADAM RAKER, RYAN L 709.9 Unspecified Disorder Of Skin [...] 562.10 Diverticulosis Of Colon (without Hemorrhage) 12/17/2010 BEVERLEY DIAZ, OLIVIA M 709.9 Unspecified Disorder Of Skin And [...] Cellulitis And Abscess Of Unspecified Sites 02/23/2011 RYNE ROGERS BRENNEN LEPEH 452 Portal Vein Thrombosis 02/23/2011 RYNE ROGERS BRENNEN LEPEH 682.9 Cellulitis And Abscess Of Unspecified Sites 02/23/2011 452 Portal Vein Thrombosis 02/23/2011 682.9 Cellulitis And Abscess Of Unspecified Sites 02/23/2011 RYNE ROGERS BRENNEN LEPEH 452 Portal Vein Thrombosis 02/23/2011 MICHELE SUE BRENNEN LEPEH 682.9 Cellulitis And Abscess Of Unspecified Sites 02/23/2011 RYNE ROGERS BRENNEN LEPEH 452 Portal Vein Thrombosis 02/23/2011 RYNE ROGERS BRENNEN LEPEH 682.9 Cellulitis And Abscess Of Unspecified Sites 02/23/2011 RYNE ROGERS BRENNEN LEPEH 452 Portal Vein Thrombosis 02/23/2011 RYNE ROGERS BRENNEN LEPEH 682.9 Cellulitis And Abscess Of Unspecified Sites 02/23/2011 YOCASTA VIRGEN DOA K 452 Portal Vein Thrombosis 02/23/2011 YOCASTA VIRGEN DOA K 682.9 Cellulitis And Abscess Of Unspecified Sites 02/23/2011 MADL RYAN ROGERS L 452 Portal Vein Thrombosis 02/23/2011 MADL MACADAM RAKERNIA De La CruzA L 682.9 Cellulitis And Abscess Of Unspecified Sites 02/23/2011 YOCASTA VIRGEN DOA K 452 Portal Vein Thrombosis 02/23/2011 YOCASTA VIRGEN DOA K 682.9 Cellulitis And Abscess Of Unspecified [...] Abscess Of Unspecified Sites 02/23/2011 VIRGEN DO, SHERORN K 452 Portal Vein Thrombosis 02/23/2011 VIRGEN [...] Cellulitis And Abscess Of Unspecified Sites 02/23/2011 YOCASTA VIRGEN DOA K 452 Portal Vein Thrombosis 02/23/2011 VIRGEN DO SHERRON K 682.9 Cellulitis And Abscess Of Unspecified Sites 02/23/2011 Ot 682.9 02/23/2011 Ot V58.61 02/23/2011 Ot 300.00 02/23/2011 Ot 786.50 02/24/2011 780.50 SLEEP DISTURBANCE, UNSPECIFIED 02/24/2011 V58.30 Encounter For Change Or Removal Of Nonsurgical Wound Dressing 02/24/2011 MICHELE MACADAM RAKER, BRENNEN ZAMORANO 780.50 SLEEP DISTURBANCE, UNSPECIFIED 02/24/2011 MICHELE MACADAM RAKER, BRENNEN ZAMORANO V58.30 Encounter For Change Or Removal Of Nonsurgical Wound Dressing 02/24/2011 780.50 SLEEP DISTURBANCE, UNSPECIFIED 02/24/2011 V58.30 Encounter For Change Or Removal Of Nonsurgical Wound Dressing 02/24/2011 MICHELE MACADAM RAKER, BRENNEN ZAMORANO 780.50 SLEEP DISTURBANCE, UNSPECIFIED 02/24/2011 MICHELE MACADAM RAKER, BRENNEN ZAMORANO V58.30 Encounter For Change Or Removal Of Nonsurgical Wound Dressing 02/24/2011 MICHELE MACADAM RAKER, BRENNEN ZAMORANO 780.50 SLEEP DISTURBANCE, UNSPECIFIED 02/24/2011 MICHELE MACADAM RAKER, BRENNEN ZAMORANO V58.30 Encounter For Change Or Removal Of Nonsurgical Wound Dressing 02/24/2011 MICHELE MACADAM RAKER, BRENNEN ZAMORANO 780.50 SLEEP DISTURBANCE, UNSPECIFIED 02/24/2011 MICHELE MACADAM RAKER, BRENNEN ZAMORANO V58.30 Encounter For Change Or Removal Of Nonsurgical Wound Dressing 02/24/2011 VIRGEN DO SHERRON K 780.50 SLEEP DISTURBANCE, UNSPECIFIED 02/24/2011 VIRGEN DO SHERRON K V58.30 Encounter For Change Or Removal Of Nonsurgical Wound Dressing 02/24/2011 MADL MACADAM RAKER, RYAN L 780.50 SLEEP DISTURBANCE, UNSPECIFIED 02/24/2011 MADL MACADAM RAKER, RYAN L V58.30 Encounter For Change Or [...] Or Removal Of Nonsurgical Wound Dressing 02/24/2011 BEVERLEY PROJECT CONTROL MANAGER, OLIVIA M 780.50 SLEEP DISTURBANCE, UNSPECIFIED 02/24/2011 BEVERLEY PROJECT CONTROL MANAGER, OLIVIA M V58.30 Encounter For Change Or [...] SHERRON K 789.05 Abdominal Pain Periumbilic 03/02/2011 RAFAEL ROGERS RYAN L 789.05 Abdominal Pain Periumbilic 03/02/2011 VIRGEN DO, [...] V68.1 ISSUE OF REPEAT PRESCRIPTIONS 03/18/2011 MICHELE MACADAM RAKER, BRENNEN ZAMORANO V68.1 ISSUE OF REPEAT PRESCRIPTIONS 03/18/2011 V68.1 ISSUE OF REPEAT PRESCRIPTIONS 03/18/2011 RYNE MONTES DE OCADorothy BRENNEN ZAMORANO V68.1 ISSUE OF REPEAT PRESCRIPTIONS 03/18/2011 RYNE ROGERS BRENNEN ZAMORANO V68.1 ISSUE OF REPEAT PRESCRIPTIONS 03/18/2011 MICHELE MACADAM RAKER, BRENNEN ZAMORANO V68.1 ISSUE OF REPEAT PRESCRIPTIONS 03/18/2011 VIRGEN DO, SHERRON K V68.1 ISSUE OF REPEAT PRESCRIPTIONS 03/18/2011 RYAN HALL APRN V68.1 ISSUE OF REPEAT PRESCRIPTIONS 03/18/2011 [...] K V58.69 MEDICATION HIGH RISK 03/25/2011 BEVERLEY PROJECT CONTROL MANAGER, OLIVIA M V58.69 MEDICATION HIGH RISK 03/25/2011 VIRGEN DO, SHERRON K V58.69 MEDICATION HIGH RISK 03/25/2011 VIRGEN DO, SHERRON K V58.69 MEDICATION HIGH RISK 03/25/2011 BEVERLEY DIAZ, OLIVIA M V58.69 MEDICATION HIGH RISK 03/25/2011 VIRGEN DO, SHERRON K V58.69 MEDICATION HIGH RISK 03/26/2011 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 03/26/2011 MICHELE MACADAM RAKER, BRENNEN ZAMORANO 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 03/26/2011 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 03/26/2011 MICHELE MACADAM RAKER, BRENNEN ZAMORANO 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 03/26/2011 MICHELE MACADAM RAKER BRENNEN ZAMORANO 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 03/26/2011 MICHELE MACADAM RAKER, BRENNEN ZAMORANO 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 03/26/2011 VIRGEN DO, SHERRON K 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 03/26/2011 RAFAEL ROGERS RYAN L V12.04 PERSONAL HISTORY OF METHICILLIN [...] HISTORY OF METHICILLIN RESISTANT STAPHYLOCOCCUS AUREUS 03/26/2011 BEVERLEY DIAZOLIVIA M 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 03/26/2011 VIRGEN DO SHERRON K 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 09/08/2011 Ot 276.51 09/08/2011 Ot 295.30 09/08/2011 Ot 300.00 09/08/2011 Ot 304.00 09/08/2011 Ot 305.1 09/08/2011 Ot 309.81 09/08/2011 Ot 722.91 09/08/2011 Ot V12.51 09/20/2011 Ot 786.50 09/20/2011 Ot 786.52 09/30/2011 298.9 P PSYCHOSIS NOS 09/30/2011 MICHELE MACADAM RAKER, BRENNEN ZAMORANO 298.9 P PSYCHOSIS NOS 09/30/2011 298.9 P PSYCHOSIS NOS 09/30/2011 MICHELE MACADAM RAKER, BRENNEN LEPEH 298.9 P PSYCHOSIS NOS 09/30/2011 MICHELE MACADAM RAKER, BRENNEN LEPEH 298.9 P PSYCHOSIS NOS 09/30/2011 MICHELE MACADAM RAKER, BRENNEN LEPEH 298.9 P PSYCHOSIS NOS 09/30/2011 VIRGEN DO, SHERRON K 298.9 P PSYCHOSIS NOS 09/30/2011 MADVanessa MACADAM RAKER, RYAN L 298.9 P PSYCHOSIS NOS 09/30/2011 [...] K 298.9 P PSYCHOSIS NOS 09/30/2011 BEVERLEY PROJECT CONTROL MANAGER, OLIVIA M 298.9 P PSYCHOSIS NOS 09/30/2011 VIRGEN DO, SHERRON K 298.9 P PSYCHOSIS NOS 09/30/2011 VIRGEN DO, SHERRON K 298.9 P PSYCHOSIS NOS 09/30/2011 BEVERLEY PROJECT CONTROL MANAGER, OLIVIA M 298.9 P PSYCHOSIS NOS 09/30/2011 VIRGEN DO, SHERRON K 298.9 P PSYCHOSIS NOS 10/04/2013 MICHELE MACADAM RAKERBRENNEN 346.90 MIGRAINE HEADACHE 10/04/2013 MICHELE MACADAM RAKER, BRENNEN ZAMORANO 346.90 MIGRAINE HEADACHE 10/04/2013 VIRGEN DO, SHERRON K 346.90 MIGRAINE HEADACHE 10/04/2013 MADL MACADAM RAKER, RYAN L 346.90 MIGRAINE HEADACHE 10/04/2013 VIRGEN DO, [...] SHERRON K 346.90 MIGRAINE HEADACHE 10/04/2013 BEVERLEY PROJECT CONTROL MANAGER, OLIVIA M 346.90 MIGRAINE HEADACHE 10/04/2013 VIRGEN DO, SHERRON K 346.90 MIGRAINE HEADACHE 10/04/2013 VIRGEN DO, SHERRON K 346.90 MIGRAINE HEADACHE 10/04/2013 BEVERLEY PROJECT CONTROL MANAGER, OLIVIA M 346.90 MIGRAINE HEADACHE 10/04/2013 VIRGEN DO, SHERRON K 346.90 MIGRAINE HEADACHE 02/13/2014 VIRGEN DO, SHERRON K 338.29 OTHER CHRONIC PAIN 02/13/2014 MADL MACADAM RAKER, RYAN L 338.29 OTHER CHRONIC PAIN 02/13/2014 [...] SHERRON K 338.29 OTHER CHRONIC PAIN 02/19/2014 MADVanessa MACADAM RAKER, RYAN L 796.9 OTHER NONSPECIFIC ABNORMAL FINDINGS 02/19/2014 VIRGEN [...] 729.5 PAIN IN LIMB 07/23/2014 OLIVIA AUGUSTINE 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 AND OTHER LOWER URINARY TRACT SYMPTOMS (LUTS) 07/23/2014 OLIVIA AUGUSTINE 724.2 LUMBAGO 07/23/2014 OLIVIA AUGUSTINE 729.5 PAIN IN LIMB 07/23/2014 VIRGEN DO, [...] 729.5 PAIN IN LIMB 07/23/2014 OLIVIA AUGUSTINE 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 AND OTHER LOWER URINARY TRACT SYMPTOMS (LUTS) 07/23/2014 BEVERLEY DIAZOLIVIA M 724.2 LUMBAGO 07/23/2014 BEVERLEY DIAZ OLIVIA M 729.5 PAIN IN LIMB 07/23/2014 SHERRON VIRGEN DO K 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 AND OTHER LOWER URINARY TRACT SYMPTOMS (LUTS) 07/23/2014 SHERRON VIRGEN DO K 724.2 LUMBAGO 07/23/2014 YOCASTA VIRGEN DOA K 729.5 PAIN IN LIMB 08/22/2014 BEVERLEY DIAZ OLIVIA M 311 MO DEPRESS NOS 08/22/2014 YOCASTA VIRGEN DOA K 311 MO DEPRESS NOS 08/22/2014 YOCASTA VIRGEN DOA K 311 MO DEPRESS NOS 08/22/2014 BEVERLEY DIAZ OLIVIA M 311 MO DEPRESS NOS 08/22/2014 YOCASTA VIRGEN DOA K 311 MO DEPRESS NOS 11/05/2014 BEVERLEY EMILYOLIVIA Kitty 296.32 MO DEPRESSIVE RECURRENT MODERATE 11/05/2014 YOCASTA [...] CHRISTIANSON MD Ot 414.01 CORONARY ATHEROSCLEROSIS OF RESIGHINI CORON 02/18/2015 GILES CHRISTIANSON MD Ot 424.0 MITRAL VALVE DISORDER 02/18/2015 GILES CHRISTIANSON MD Ot 427.32 ATRIAL FLUTTER 02/18/2015 GILES CHRISTIANSON MD Ot 919.4 INSECT BITE NEC 02/18/2015 GILES CHRISTIANSON MD Ot E000.8 OTHER EXTERNAL CAUSE STATUS 02/18/2015 MEGHAN DRAPER, GILES Caal Ot E906.4 NONVENOM ARTHROPOD BITE 06/27/2017 SAJAN CRUZ MD, Ot F41.9 ANXIETY DISORDER, UNSPECIFIED 06/27/2017 SAJAN CRUZ MD, Ot K21.9 GASTRO-ESOPHAGEAL REFLUX DISEASE WITHOUT 06/27/2017 SAJAN CRUZ MD, Ot K57.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 OF INTEST, PART UNSP, W/O PERF 06/27/2017 SAJAN CRUZ MD, Ot K62.5 HEMORRHAGE OF ANUS AND RECTUM 06/27/2017 SAJAN CRUZ MD, Ot M47.9 SPONDYLOSIS, UNSPECIFIED 06/27/2017 SAJAN CRUZ MD, Ot R10.32 LEFT LOWER QUADRANT PAIN 06/27/2017 SAJAN CRUZ MD Ot Z79.82 TRACK AND FIELD COACH (CURRENT) USE OF ASPIRIN 06/27/2017 SAJAN CRUZ MD Ot Z90.49 ACQUIRED ABSENCE OF OTHER SPECIFIED PART 06/28/2017 TERESA MENESES MD Ot K92.1 MELENA 06/28/2017 TERESA MENESES MD Ot R10.9 UNSPECIFIED ABDOMINAL PAIN 06/29/2017 ROSITA WATKINS W 300.00 ANXIETY STATE, UNSPECIFIED 06/29/2017 ROSITA WATKINS 562.11 DIVERTICULITIS OF COLON WITHOUT MENTION OF HEMORRHAGE 06/29/2017 ROSITA WATKINS W F41.9 ANXIETY DISORDER, UNSPECIFIED 06/29/2017 ROSITA WATKINS K57.33 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CESS W BLEEDING 06/29/2017 SAJAN CRUZ MD, Ot F41.9 ANXIETY DISORDER, UNSPECIFIED 06/29/2017 SAJAN CRUZ MD, Ot K21.9 GASTRO-ESOPHAGEAL REFLUX DISEASE WITHOUT 06/29/2017 SAJAN CRUZ MD, Ot K57.90 DVRTCLOS OF INTEST, PART UNSP, W/O PERF 06/29/2017 SAJAN CRUZ MD, Ot K62.5 HEMORRHAGE OF ANUS AND RECTUM 06/29/2017 SAJAN CRUZ MD, Ot M47.9 SPONDYLOSIS, UNSPECIFIED 06/29/2017 SAJAN CRUZ MD, Ot R10.32 LEFT LOWER QUADRANT PAIN 06/29/2017 SAJAN CRUZ MD, Ot Z79.82 TRACK AND FIELD COACH (CURRENT) USE OF ASPIRIN 06/29/2017 SAJAN CRUZ MD Ot Z90.49 ACQUIRED ABSENCE OF OTHER SPECIFIED PART 06/29/2017 SAJAN CRUZ MD, Ot F41.9 ANXIETY DISORDER, UNSPECIFIED 06/29/2017 SAJAN CRUZ MD, Ot K21.9 GASTRO-ESOPHAGEAL REFLUX DISEASE WITHOUT 06/29/2017 SAJAN CRUZ MD, Ot K57.90 DVRTCLOS OF INTEST, PART UNSP, W/O PERF 06/29/2017 SAJAN CRUZ MD, Ot K62.5 HEMORRHAGE OF ANUS AND RECTUM 06/29/2017 SAJAN CRUZ MD, Ot M47.9 SPONDYLOSIS, UNSPECIFIED 06/29/2017 SAJAN CRUZ MD, Ot R10.32 LEFT LOWER QUADRANT PAIN 06/29/2017 SAJAN CRUZ MD, Ot Z79.82 TRACK AND FIELD COACH (CURRENT) USE OF ASPIRIN 06/29/2017 SAJAN CRUZ MD, Ot Z90.49 ACQUIRED ABSENCE OF OTHER SPECIFIED PART 06/30/2017 TERESA MENESES MD Ot K92.1 MELENA 06/30/2017 TERESA MENESES MD Ot R10.9 UNSPECIFIED ABDOMINAL PAIN 06/30/2017 TERESA MENESES MD Ot K92.1 MELENA 06/30/2017 TERESA MENESES MD Ot R10.9 UNSPECIFIED ABDOMINAL PAIN 07/12/2017 [...] OF OTHER DISEASES OF 07/14/2017 IMMANUEL FRANCO MD, Ot F32.9 MAJOR DEPRESSIVE DISORDER, SINGLE EPISOD 07/14/2017 IMMANUEL FRANCO MD, Ot F41.9 ANXIETY DISORDER, UNSPECIFIED 07/14/2017 IMMANUEL FRANCO MD, Ot I10 ESSENTIAL (PRIMARY) HYPERTENSION 07/14/2017 IMMANUEL FRANCO MD, Ot I48.91 UNSPECIFIED ATRIAL FIBRILLATION 07/14/2017 IMMANUEL FRANCO MD, Ot K57.32 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 07/14/2017 IMMANUEL FRANCO MD, Ot K62.5 HEMORRHAGE OF ANUS AND RECTUM 07/14/2017 IMMANUEL FRANCO MD, Ot K64.1 SECOND DEGREE HEMORRHOIDS 07/14/2017 IMMANUEL FRANCO MD, Ot M54.5 LOW BACK PAIN 07/14/2017 IMMANUEL FRANCO MD, Ot Z79.82 TRACK AND FIELD COACH (CURRENT) USE OF ASPIRIN 07/14/2017 IMMANUEL FRANCO MD, Ot Z79.899 OTHER GROUP HOME (CURRENT) DRUG THERAPY 07/14/2017 IMMANUEL FRANCO MD, Ot Z86.010 PERSONAL HISTORY OF COLONIC POLYPS 07/14/2017 IMMANUEL FRANCO MD, Ot Z98.1 ARTHRODESIS STATUS 08/23/2017 JUAN MANUEL EVANS DO Ot B18.2 CHRONIC VIRAL HEPATITIS C 08/23/2017 JUAN MANUEL EVANS DO, Ot F32.9 MAJOR DEPRESSIVE DISORDER, SINGLE EPISOD 08/23/2017 JUAN MANUEL EVANS DO, Ot F41.9 ANXIETY DISORDER, UNSPECIFIED 08/23/2017 JUAN MANUEL EVANS DO Ot I25.10 ATHSCL HEART DISEASE OF [place] CORONARY 08/23/2017 JUAN MANUEL EVANS DO Ot I26.99 OTHER PULMONARY EMBOLISM WITHOUT ACUTE C 08/23/2017 JUAN MANUEL EVANS DO Ot I48.0 PAROXYSMAL ATRIAL FIBRILLATION 08/23/2017 JUAN MANUEL EVANS DO Ot K21.9 GASTRO-ESOPHAGEAL REFLUX DISEASE WITHOUT 08/23/2017 JUAN MANUEL EVANS DO Ot R09.02 HYPOXEMIA 08/23/2017 JUAN MANUEL EVANS DO Ot Z86.718 PERSONAL HISTORY OF OTHER VENOUS THROMBO 08/23/2017 JUAN MANUEL EVANS DO Ot Z87.891 PERSONAL HISTORY OF NICOTINE DEPENDENCE 08/23/2017 JUAN MANUEL EVANS DO Ot Z90.81 ACQUIRED ABSENCE OF SPLEEN 08/23/2017 NATHAN MELCHOR JUAN MANUEL Ot Z98.1 ARTHRODESIS STATUS 08/24/2017 NATHAN MELCHOR JUAN MANUEL Ot B18.2 CHRONIC VIRAL HEPATITIS C 08/24/2017 JAMILA EVANS DOI Ot F32.9 MAJOR DEPRESSIVE DISORDER, SINGLE EPISOD 08/24/2017 JAMILA EVANS DOI Ot F41.9 ANXIETY DISORDER, UNSPECIFIED 08/24/2017 NATHAN MELCHOR JUAN MANUEL Ot I25.10 ATHSCL HEART DISEASE OF [place] CORONARY 08/24/2017 NATHAN MELCHOR JUAN MANUEL Ot I26.99 OTHER PULMONARY EMBOLISM WITHOUT ACUTE C 08/24/2017 JAMILA EVANS DOI Ot I48.0 PAROXYSMAL ATRIAL FIBRILLATION 08/24/2017 JAMILA EVANS DOI Ot K21.9 GASTRO-ESOPHAGEAL REFLUX DISEASE WITHOUT 08/24/2017 JAMILA EVANS DOI Ot R09.02 HYPOXEMIA 08/24/2017 JAMILA EVANS DOI Ot Z86.718 PERSONAL HISTORY OF OTHER VENOUS THROMBO 08/24/2017 JAMILA EVANS DOI Ot Z87.891 PERSONAL HISTORY OF NICOTINE DEPENDENCE 08/24/2017 JAMILA EVANS DOI Ot Z90.81 ACQUIRED ABSENCE OF SPLEEN 08/24/2017 JAMILA EVANS DOI Ot Z98.1 ARTHRODESIS STATUS 08/24/2017 JAMILA EVANS DOI Ot B18.2 CHRONIC VIRAL HEPATITIS C 08/24/2017 JAMILA EVANS DOI Ot F32.9 MAJOR DEPRESSIVE DISORDER, SINGLE EPISOD 08/24/2017 JAMILA EVANS DOI Ot F41.9 ANXIETY DISORDER, UNSPECIFIED 08/24/2017 JAMILA EVANS DOI Ot I25.10 ATHSCL HEART DISEASE OF [place] CORONARY 08/24/2017 NATHAN MELCHOR JUAN MANUEL Ot I26.99 OTHER PULMONARY EMBOLISM WITHOUT ACUTE C 08/24/2017 NATHAN MELCHOR JUAN MANUEL Ot I48.0 PAROXYSMAL ATRIAL FIBRILLATION 08/24/2017 JAMILA EVANS DOI Ot K21.9 GASTRO-ESOPHAGEAL REFLUX DISEASE WITHOUT 08/24/2017 JAMILA EVANS DOI Ot R07.89 OTHER CHEST PAIN 08/24/2017 JAMILA EVANS DOI Ot R09.02 HYPOXEMIA 08/24/2017 JUAN MANUEL EVANS DO Ot Z23 ENCOUNTER FOR IMMUNIZATION 08/24/2017 JAMILA EVANS DOI Ot Z86.718 PERSONAL HISTORY OF OTHER VENOUS THROMBO 08/24/2017 EVANSJUAN MANUEL MILLER DO Ot Z87.891 PERSONAL HISTORY OF NICOTINE DEPENDENCE 08/24/2017 EVANSJUAN MANUEL MILLER DO Ot Z90.81 ACQUIRED ABSENCE OF SPLEEN 08/24/2017 EVANSJUAN MANUEL MILLER DO Ot Z98.1 ARTHRODESIS STATUS 09/01/2017 SIVA MELCHOR MAHI K Ot F41.9 ANXIETY DISORDER, UNSPECIFIED 09/01/2017 SIVA MELCHOR MAHI K Ot G43.909 MIGRAINE, UNSP, NOT INTRACTABLE, WITHOUT 09/01/2017 SIVA ANILAA K Ot I26.99 OTHER PULMONARY EMBOLISM WITHOUT ACUTE C 09/01/2017 SIVA MAHI Ot I48.91 UNSPECIFIED ATRIAL FIBRILLATION 09/01/2017 MAHI PANIAGUA DO Ot K21.9 GASTRO-ESOPHAGEAL REFLUX DISEASE WITHOUT 09/01/2017 MAHI PANIAGUA DO Ot M47.9 SPONDYLOSIS, UNSPECIFIED 09/01/2017 MAHI PANIAGUA DO Ot M79.604 PAIN IN RIGHT LEG 09/01/2017 MAHI PANIAGUA DO Ot R25.2 CRAMP AND SPASM 09/01/2017 MAHI PANIAGUA DO Ot Z79.01 TRACK AND FIELD COACH (CURRENT) USE OF ANTICOAGULANT 09/01/2017 MAHI PANIAGUA DO Ot Z79.82 TRACK AND FIELD COACH (CURRENT) USE OF ASPIRIN 09/01/2017 MAHI PANIAGUA DO Ot Z86.14 PERSONAL HISTORY OF METHICILLIN RESIS ST 09/01/2017 MAHI PANIAGUA DO Ot Z86.718 PERSONAL HISTORY OF OTHER VENOUS THROMBO 09/01/2017 MAHI PANIAGUA DO Ot Z87.891 PERSONAL HISTORY OF NICOTINE DEPENDENCE 09/08/2017 MAHI PANIAGUA DO Ot F41.9 ANXIETY DISORDER, UNSPECIFIED 09/08/2017 SIVAMAHI Carballo DO Ot G43.909 MIGRAINE, UNSP, NOT INTRACTABLE, WITHOUT 09/08/2017 MAHI PANIAGUA DO Ot I26.99 OTHER PULMONARY EMBOLISM WITHOUT ACUTE C 09/08/2017 MAHI PANIAGUA DO Ot I48.91 UNSPECIFIED ATRIAL FIBRILLATION 09/08/2017 MAHI PANIAGUA DO Ot K21.9 GASTRO-ESOPHAGEAL REFLUX DISEASE WITHOUT 09/08/2017 MAHI PANIAGUA DO Ot M47.9 SPONDYLOSIS, UNSPECIFIED 09/08/2017 MAHI PANIAGUA DO Ot M79.604 PAIN IN RIGHT LEG 09/08/2017 MAHI PANIAGUA DO Ot R25.2 CRAMP AND SPASM 09/08/2017 MAHI PANIAGUA DO Ot Z79.01 TRACK AND FIELD COACH (CURRENT) USE OF ANTICOAGULANT 09/08/2017 MAHI PANIAGUA DO Ot Z79.82 GROUP HOME (CURRENT) USE OF ASPIRIN 09/08/2017 MAHI PANIAGUA DO Ot Z86.14 PERSONAL HISTORY OF METHICILLIN RESIS ST 09/08/2017 MAHI PANIAGUA DO Ot Z86.718 PERSONAL HISTORY OF OTHER VENOUS THROMBO 09/08/2017 MAHI PANIAGUA DO Ot Z87.891 PERSONAL HISTORY OF NICOTINE DEPENDENCE 09/24/2017 JUAN MANUEL EVANS DO Ot F32.9 MAJOR DEPRESSIVE DISORDER, SINGLE EPISOD 09/24/2017 JUAN MANUEL EVANS DO Ot F41.9 ANXIETY DISORDER, UNSPECIFIED 09/24/2017 JUAN MANUEL EVANS DO Ot G89.29 OTHER CHRONIC PAIN 09/24/2017 JUAN MANUEL EVANS DO Ot I25.10 ATHSCL HEART DISEASE OF [place] CORONARY 09/24/2017 JAMILA EVANS DOI Ot I47.1 SUPRAVENTRICULAR TACHYCARDIA 09/24/2017 JAMILA EVANS DOI Ot I48.0 PAROXYSMAL ATRIAL FIBRILLATION 09/24/2017 JUAN MANUEL EVANS DO Ot K21.9 GASTRO-ESOPHAGEAL REFLUX DISEASE WITHOUT 09/24/2017 JAMILA EVANS DOI Ot K59.09 OTHER CONSTIPATION 09/24/2017 JUAN MANUEL EVANS DO Ot Z79.891 TRACK AND FIELD COACH (CURRENT) USE OF OPIATE ANALGE 09/24/2017 JUAN MANUEL EVANS DO Ot Z79.899 OTHER TRACK AND FIELD COACH (CURRENT) DRUG THERAPY 09/24/2017 JUAN MANUEL EVANS DO Ot Z86.711 PERSONAL HISTORY OF PULMONARY EMBOLISM 09/25/2017 MAHI PANIAGUA DO Ot F41.9 ANXIETY DISORDER, UNSPECIFIED 09/25/2017 MAHI PANIAGUA DO Ot G43.909 MIGRAINE, UNSP, NOT INTRACTABLE, WITHOUT 09/25/2017 MAHI PANIAGUA DO Ot I48.91 UNSPECIFIED ATRIAL FIBRILLATION 09/25/2017 MAHI PANIAGUA DO Ot K21.9 GASTRO-ESOPHAGEAL REFLUX DISEASE WITHOUT 09/25/2017 MAHI PANIAGUA DO Ot M47.9 SPONDYLOSIS, UNSPECIFIED 09/25/2017 MAHI PANIAGUA DO Ot R07.9 CHEST PAIN, UNSPECIFIED 09/25/2017 MAHI PANIAGUA DO Ot Z79.02 TRACK AND FIELD COACH (CURRENT) USE OF ANTITHROMBOTI 09/25/2017 MAHI PANIAGUA DO Ot Z86.711 PERSONAL HISTORY OF PULMONARY EMBOLISM 09/25/2017 MAHI PANIAGUA DO Ot Z86.718 PERSONAL HISTORY OF OTHER VENOUS THROMBO 09/25/2017 MAHI PANIAGUA DO Ot Z87.19 PERSONAL HISTORY OF OTHER DISEASES OF TH 09/25/2017 MAHI PANIAGUA DO Ot Z87.891 PERSONAL HISTORY OF NICOTINE DEPENDENCE 09/25/2017 MAHI PANIAGUA DO Ot Z90.49 ACQUIRED ABSENCE OF OTHER SPECIFIED PART 09/27/2017 MAHI PANIAGUA DO Ot F41.9 ANXIETY DISORDER, UNSPECIFIED 09/27/2017 MAHI PANIAGUA DO Ot R07.89 OTHER CHEST PAIN 09/27/2017 MAHI PANIAGUA DO Ot R07.9 CHEST PAIN, UNSPECIFIED 11/16/2017 ERIKA DRAPER, JEOVANNY Mayo Ot B18.2 CHRONIC VIRAL HEPATITIS C 11/24/2017 Ot M47.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 11/24/2017 Ot M47.816 SPONDYLOSIS W/O MYELOPATHY OR RADICULOPA 11/24/2017 Ot M50.31 OTHER CERVICAL DISC DEGENERATION, HIGH 11/24/2017 Ot Z98.1 ARTHRODESIS STATUS 11/24/2017 JEOVANNY JAMES MD P Ot B18.2 CHRONIC VIRAL HEPATITIS C 12/03/2017 Ot M47.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 12/03/2017 Ot M47.816 SPONDYLOSIS W/O MYELOPATHY OR RADICULOPA 12/03/2017 Ot M50.31 OTHER CERVICAL DISC DEGENERATION, HIGH 12/03/2017 Ot Z98.1 ARTHRODESIS STATUS 02/18/2018 JEOVANNY JAMES MD Ot B18.2 CHRONIC VIRAL HEPATITIS C 02/18/2018 Ot M47.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 02/18/2018 Ot M47.816 SPONDYLOSIS W/O MYELOPATHY OR RADICULOPA 02/18/2018 Ot M50.31 OTHER CERVICAL DISC DEGENERATION, HIGH 02/18/2018 Ot Z98.1 ARTHRODESIS STATUS 03/07/2018 EMILIE BANEGAS MACADAM RAKER Ot I86.1 SCROTAL VARICES 03/07/2018 EMILIE BANEGAS MACADAM RAKER Ot K46.9 UNSPECIFIED ABDOMINAL HERNIA WITHOUT OBS 03/07/2018 EMILIE BANEGAS MACADAM RAKER Ot N43.3 HYDROCELE, UNSPECIFIED 03/07/2018 EMILIE BANEGAS MACADAM RAKER Ot N50.3 CYST OF EPIDIDYMIS 06/24/2018 ERIKA DRAPER, JEOVANNY Mayo Ot B18.2 CHRONIC VIRAL HEPATITIS C 06/24/2018 Ot M47.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 06/24/2018 Ot M47.816 SPONDYLOSIS W/O MYELOPATHY OR RADICULOPA 06/24/2018 Ot M50.31 OTHER CERVICAL DISC DEGENERATION, HIGH 06/24/2018 Ot Z98.1 ARTHRODESIS STATUS 06/24/2018 EMILIE BANEGAS MACADAM RAKER Ot I86.1 SCROTAL VARICES 06/24/2018 EMILIE BANEGAS MACADAM RAKER Ot K46.9 UNSPECIFIED ABDOMINAL HERNIA WITHOUT OBS 06/24/2018 EMILIE BANEGAS MACADAM RAKER Ot N43.3 HYDROCELE, UNSPECIFIED 06/24/2018 EMILIE BANEGAS MACADAM RAKER Ot N50.3 CYST OF EPIDIDYMIS 06/24/2018 ERIKA DRAPER, JEOVANNY Mayo Ot B18.2 CHRONIC VIRAL HEPATITIS C 06/24/2018 Ot M47.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 06/24/2018 Ot M47.816 SPONDYLOSIS W/O MYELOPATHY OR RADICULOPA 06/24/2018 Ot M50.31 OTHER CERVICAL DISC DEGENERATION, HIGH 06/24/2018 Ot Z98.1 ARTHRODESIS STATUS 06/24/2018 EMILIE BANEGAS MACADAM RAKER Ot I86.1 SCROTAL VARICES 06/24/2018 EMILIE BANEGAS MACADAM RAKER Ot K46.9 UNSPECIFIED ABDOMINAL HERNIA WITHOUT OBS 06/24/2018 EMILIE BANEGAS MACADAM RAKER Ot N43.3 HYDROCELE, UNSPECIFIED 06/24/2018 EMILIE BANEGAS MACADAM RAKER Ot N50.3 CYST OF EPIDIDYMIS 06/28/2018 ERIKA DRAPER, JEOVANNY Mayo Ot B18.2 CHRONIC VIRAL HEPATITIS C 07/05/2018 ERIKA DRAPER, JEOVANNY Mayo Ot B18.2 CHRONIC VIRAL HEPATITIS C 08/03/2018 CARRINGTON GARAYP Ot Z01.818 ENCOUNTER FOR OTHER PREPROCEDURAL EXAMIN 08/04/2018 CARRINGTON GARAYP Ot Z01.818 ENCOUNTER FOR OTHER PREPROCEDURAL EXAMIN 08/05/2018 Champagne, Kymberly-Justice W 401.9 UNSPECIFIED ESSENTIAL HYPERTENSION 08/05/2018 Champagne, Kymber[employer]-Justice W 427.0 PAROXYSMAL SUPRAVENTRICULAR TACHYCARDIA 08/05/2018 Champagne, [employer]Justice W 427.31 ATRIAL FIBRILLATION 08/05/2018 Champagne, [employer]Justice W I10 ESSENTIAL (PRIMARY) HYPERTENSION 08/05/2018 Champagne, Kymber[employer]-Justice W I47.1 SUPRAVENTRICULAR TACHYCARDIA 08/05/2018 Champagne, Kymber[employer]-Justice W I48.0 PAROXYSMAL ATRIAL FIBRILLATION 08/05/2018 Champagne, [employer]Justice W 401.9 UNSPECIFIED ESSENTIAL HYPERTENSION 08/05/2018 Champagne, [employer]-Justice W 427.0 PAROXYSMAL SUPRAVENTRICULAR TACHYCARDIA 08/05/2018 Champagne, [employer]Justice W 427.31 ATRIAL FIBRILLATION 08/05/2018 Champagne, [employer]Justice W I10 ESSENTIAL (PRIMARY) HYPERTENSION 08/05/2018 Champagne, [employer]ym[employer]-Justice W I47.1 SUPRAVENTRICULAR TACHYCARDIA 08/05/2018 Champagne, [employer]Justice W I48.0 PAROXYSMAL ATRIAL FIBRILLATION 08/05/2018 Champagne, [employer]Justice W 401.9 UNSPECIFIED ESSENTIAL HYPERTENSION 08/05/2018 Champagne, [employer]-Justice W 427.0 PAROXYSMAL SUPRAVENTRICULAR TACHYCARDIA 08/05/2018 Champagne, [employer]Justice W 427.31 ATRIAL FIBRILLATION 08/05/2018 Champagne, [employer]-Justice W I10 ESSENTIAL (PRIMARY) HYPERTENSION 08/05/2018 Champagne, Kymber[employer]-Justice W I47.1 SUPRAVENTRICULAR TACHYCARDIA 08/05/2018 Champagne, Kymber[employer]-Justice W I48.0 PAROXYSMAL ATRIAL FIBRILLATION 08/06/2018 Champagne, [employer]Justice W 240.9 GOITER, UNSPECIFIED 08/06/2018 Champagne, [employer]ym[employer]Justice W 272.4 08/06/2018 Champagne, Kymber[employer]-Justice W 274.9 GOUT, UNSPECIFIED 08/06/2018, [employer] W 401.0 08/06/2018, [employer] W 401.9 UNSPECIFIED ESSENTIAL HYPERTENSION 08/06/2018, [employer] W 427.0 PAROXYSMAL SUPRAVENTRICULAR TACHYCARDIA 08/06/2018, [employer] A 427.31 ATRIAL FIBRILLATION 08/06/2018 Champagne, [employer]Justice W E04.9 NONTOXIC GOITER, UNSPECIFIED 08/06/2018, [employer] W E78.5 HYPERLIPIDEMIA, UNSPECIFIED 08/06/2018, [employer] W I10 ESSENTIAL (PRIMARY) HYPERTENSION 08/06/2018, [employer] W I47.1 SUPRAVENTRICULAR TACHYCARDIA 08/06/2018, [employer] A I48.0 PAROXYSMAL ATRIAL FIBRILLATION 08/06/2018, [employer] W M10.9 GOUT, UNSPECIFIED 08/06/2018, [employer] W 401.9 UNSPECIFIED ESSENTIAL HYPERTENSION 08/06/2018, [employer] W 427.0 PAROXYSMAL SUPRAVENTRICULAR TACHYCARDIA 08/06/2018, [employer] W 427.31 ATRIAL FIBRILLATION 08/06/2018, [employer] W I10 ESSENTIAL (PRIMARY) HYPERTENSION 08/06/2018, [employer] W I47.1 SUPRAVENTRICULAR TACHYCARDIA 08/06/2018, [employer] W I48.0 PAROXYSMAL ATRIAL FIBRILLATION 08/06/2018, [employer] W 240.9 GOITER, UNSPECIFIED 08/06/2018, [employer] W 401.9 UNSPECIFIED ESSENTIAL HYPERTENSION 08/06/2018, [employer] W 427.0 PAROXYSMAL SUPRAVENTRICULAR TACHYCARDIA 08/06/2018, [employer] W 427.31 ATRIAL FIBRILLATION 08/06/2018 Champagne, [employer] W E04.9 NONTOXIC GOITER, UNSPECIFIED 08/06/2018 Champagne, [employer] W I10 ESSENTIAL (PRIMARY) HYPERTENSION 08/06/2018, [employer] W I47.1 SUPRAVENTRICULAR TACHYCARDIA 08/06/2018 Champagne, [employer]-Justice W I48.0 PAROXYSMAL ATRIAL FIBRILLATION 09/04/2018 GARAY, CARRINGTON M UNEMPLOYMENT INSPECTOR Ot Z29.8 ENCOUNTER FOR OTHER SPECIFIED PROPHYLACT 09/05/2018 EMILIE BANEGAS MACADAM RAKER Ot R94.6 ABNORMAL RESULTS OF THYROID FUNCTION MIKE 09/05/2018 GARAYCARRINGTON UNEMPLOYMENT INSPECTOR Ot Z29.8 ENCOUNTER FOR OTHER SPECIFIED PROPHYLACT 09/16/2018 EMILIE BANEGAS MACADAM RAKER Ot R94.6 ABNORMAL RESULTS OF THYROID FUNCTION MIKE 10/04/2018 JEOVANNY JAMES MD P Ot B18.2 CHRONIC VIRAL HEPATITIS C 10/04/2018 Ot M47.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 10/04/2018 Ot M47.816 SPONDYLOSIS W/O MYELOPATHY OR RADICULOPA 10/04/2018 Ot M50.31 OTHER CERVICAL DISC DEGENERATION, HIGH 10/04/2018 Ot Z98.1 ARTHRODESIS STATUS 10/04/2018 EMILIE BANEGAS MACADAM RAKER Ot I86.1 SCROTAL VARICES 10/04/2018 EMILIE BANEGAS MACADAM RAKER Ot K46.9 UNSPECIFIED ABDOMINAL HERNIA WITHOUT OBS 10/04/2018 EMILIE BANEGAS APRN Ot N43.3 HYDROCELE, UNSPECIFIED 10/04/2018 EMILIE BANEGAS MACADAM RAKER Ot N50.3 CYST OF EPIDIDYMIS 10/04/2018 JEOVANNY JAMES MD P Ot B18.2 CHRONIC VIRAL HEPATITIS C 10/04/2018 EMILIE BANEGAS APRN Ot R94.6 ABNORMAL RESULTS OF THYROID FUNCTION MIKE 10/05/2018 JEOVANNY JAMES MD P Ot B18.2 CHRONIC VIRAL HEPATITIS C 10/05/2018 EMILIE BANEGAS APRN Ot E03.8 OTHER SPECIFIED HYPOTHYROIDISM 10/05/2018 EMILIE BANEGAS APRN Ot I10 ESSENTIAL (PRIMARY) HYPERTENSION 10/05/2018 EMILIE BANEGAS APRN Ot I48.0 PAROXYSMAL ATRIAL FIBRILLATION 10/13/2018 NIC LÓPEZ MD Ot E03.9 HYPOTHYROIDISM, UNSPECIFIED 10/13/2018 NIC LÓPEZ MD Ot F11.20 OPIOID DEPENDENCE, UNCOMPLICATED 10/13/2018 NIC LÓPEZ MD Ot F13.20 SEDATIVE, HYPNOTIC OR ANXIOLYTIC DEPENDE 10/13/2018 NIC LÓPEZ MD Ot F41.9 ANXIETY DISORDER, UNSPECIFIED 10/13/2018 NIC LÓPEZ MD Ot G43.909 MIGRAINE, UNSP, NOT INTRACTABLE, WITHOUT 10/13/2018 NIC LÓPEZ MD Ot I10 ESSENTIAL (PRIMARY) HYPERTENSION 10/13/2018 NIC LÓPEZ MD Ot I21.A1 MYOCARDIAL INFARCTION TYPE 2 10/13/2018 NIC LÓPEZ MD Ot I25.10 ATHSCL HEART DISEASE OF [place] CORONARY 10/13/2018 NIC LÓPEZ MD Ot I48.0 PAROXYSMAL ATRIAL FIBRILLATION 10/13/2018 NIC LÓPEZ MD, Ot K21.9 GASTRO-ESOPHAGEAL REFLUX DISEASE WITHOUT 10/13/2018 NIC LÓPEZ MD, Ot K57.90 DVRTCLOS OF INTEST, PART UNSP, W/O PERF 10/13/2018 NIC LÓPEZ MD, Ot K59.09 OTHER CONSTIPATION 10/13/2018 NIC LÓPEZ MD Ot K64.9 UNSPECIFIED HEMORRHOIDS 10/13/2018 NIC LÓPEZ MD, Ot K75.9 INFLAMMATORY LIVER DISEASE, UNSPECIFIED 10/13/2018 NIC LÓPEZ MD Ot M19.91 PRIMARY OSTEOARTHRITIS, UNSPECIFIED SITE 10/13/2018 NIC LÓPEZ MD, Ot M54.9 DORSALGIA, UNSPECIFIED 10/13/2018 NIC LÓPEZ MD Ot Z85.038 PERSONAL HISTORY OF MALIGNANT NEOPLASM O 10/13/2018 NIC LÓPEZ MD Ot Z86.711 PERSONAL HISTORY OF PULMONARY EMBOLISM 10/13/2018 NIC LÓPEZ MD, Ot Z86.718 PERSONAL HISTORY OF OTHER VENOUS THROMBO 10/13/2018 NIC LÓPEZ MD Ot Z87.891 PERSONAL HISTORY OF NICOTINE DEPENDENCE 10/13/2018 NIC LÓPEZ MD Ot Z90.81 ACQUIRED ABSENCE OF SPLEEN 10/13/2018 NIC LÓPEZ MD Ot Z98.1 ARTHRODESIS STATUS Procedures Code Description Performed By Performed On 45.23 COLONOSCOPY 02/16/2011 86.22 EXCIS DEBRIDE OF WOUND, INFECT, OR BURN 02/18/2011 86.04 OTHER SKIN SUBQ I D 03/23/2011 17834 PSYCH IND W/MED CK 20 09/06/2012 33275 ROUTINE VENIPUNCTURE 02/13/2014 58572 INR (IN HOUSE) 02/13/2014 76630 CBC 02/13/2014 07079 CMP 02/13/2014 [id number] GFR CALC (RESULT ONLY) 02/13/2014 08589 VITAMIN D 25-HYDROXY (D2,D3 , TOTAL) 02/13/2014 14859 VIT B 12 02/13/2014 64672 TSH 02/13/2014 TESTFRTOT TESTOSTERONE FREE AND TOTAL MALE 02/13/2014 02375 ROUTINE VENIPUNCTURE 02/19/2014 39349 LIPID PANEL 02/19/2014 J1080 Depo-Testosterone 200 mg/mL oil 03/12/2014 42391 THERAPUTIC INJ SQ/IM 04/11/2014 68540 THERAPUTIC INJ SQ/IM 05/08/2014 84924 THERAPUTIC INJ SQ/IM 06/20/2014 83850 THERAPUTIC INJ SQ/IM 06/20/2014 92200 ROUTINE VENIPUNCTURE 06/21/2014 66321 UA LONG DIP 06/21/2014 TESTFRTOT TESTOSTERONE FREE AND TOTAL MALE 06/22/2014 16312 TESTOSTERONE TOTAL MALES 07/23/2014 86840 THERAPUTIC INJ SQ/IM 07/23/2014 J1080 Depo-Testosterone 200 mg/mL oil 07/23/2014 35742 THERAPUTIC INJ SQ/IM 08/20/2014 65945 THERAPUTIC INJ SQ/IM 09/27/2014 80335 [employer] 11/05/2014 92811 THERAPUTIC INJ SQ/IM 12/21/2014 99.61 ATRIAL CARDIOVERSION 02/17/2015 37.22 LEFT HEART CARDIAC CATH 02/18/2015 88.42 CONTRAST AORTOGRAM 02/18/2015 88.53 LT HEART ANGIOCARDIOGRAM 02/18/2015 88.56 CORONAR ARTERIOGR-2 CATH 02/18/2015 [id number] MEASURE OF CARDIAC SAMPL PRESSURE, L H 09/24/2017 [id number] FLUOROSCOPY OF MULT COR ART USING L OSM 09/24/2017 [id number] FLUOROSCOPY OF LEFT HEART USING LOW OSMO 09/24/2017 [id number] MEASURE OF CARDIAC SAMPL PRESSURE, L H 10/13/2018 [id number] FLUOROSCOPY OF MULT COR ART USING L OSM 10/13/2018 [id number] FLUOROSCOPY OF LEFT HEART USING LOW OSMO 10/13/2018 [id number] FLUOROSCOPY OF THORACIC AORTA USING LOW 10/13/2018 Results Test Result Range CBC With Differential/Platelet - 01/07/17 09:03 WBC 8.8 x10E3/uL 3.4-10.8 RBC 5.24 x10E6/uL 4.14-5.80 Hemoglobin 15.0 g/dL 12.6-17.7 Hematocrit 44.3 % 37.5-51.0 MCV 85 fL 79-97 MCH 28.6 pg 26.6-33.0 MCHC 33.9 g/dL 31.5-35.7 RDW 13.9 % 12.3-15.4 Platelets 494 x10E3/uL 150-379 Neutrophils 57 % Lymphs 20 % Monocytes 15 % Eos 7 % Basos 1 % Neutrophils (Absolute) 5.1 x10E3/uL 1.4-7.0 Lymphs (Absolute) 1.8 x10E3/uL 0.7-3.1 Monocytes(Absolute) 1.3 x10E3/uL 0.1-0.9 Eos (Absolute) 0.6 x10E3/uL 0.0-0.4 Baso (Absolute) 0.1 x10E3/uL 0.0-0.2 Immature Granulocytes 0 % Immature Grans (Abs) 0.0 x10E3/uL 0.0-0.1 Comp. Metabolic Panel (14) - 01/07/17 09:03 Glucose, Serum 92 mg/dL 65-99 BUN 13 mg/dL 6-24 Creatinine, Serum 1.05 mg/dL 0.76-1.27 eGFR If NonAfricn Am 78 mL/min/1.73 >59 eGFR If Africn Am 90 mL/min/1.73 >59 BUN/Creatinine Ratio 12 9-20 Sodium, Serum 140 mmol/L 134-144 Potassium, Serum 4.5 mmol/L 3.5-5.2 Chloride, Serum 101 mmol/L 96-106 Carbon Dioxide, Total 23 mmol/L 18-29 Calcium, Serum 10.0 mg/dL 8.7-10.2 Protein, Total, Serum 6.0 g/dL 6.0-8.5 Albumin, Serum 3.8 g/dL 3.5-5.5 Globulin, Total 2.2 g/dL 1.5-4.5 A/G Ratio 1.7 1.2-2.2 Bilirubin, Total 0.4 mg/dL 0.0-1.2 Alkaline Phosphatase, S 83 IU/L 39-117 AST (SGOT) 20 IU/L 0-40 ALT (SGPT) 33 IU/L 0-44 Lipid Panel - 01/07/17 09:03 Cholesterol, Total 199 mg/dL 100-199 Triglycerides 196 mg/dL 0-149 HDL Cholesterol 41 mg/dL >39 VLDL Cholesterol Won 39 mg/dL 5-40 LDL Cholesterol Calc 119 mg/dL 0-99 Testosterone, Serum - 01/07/17 09:03 Testosterone, Serum 499 ng/dL [phone] Comment: Comment TSH - 01/07/17 09:03 TSH 3.550 uIU/mL 0.450-4.500 Prostate-Specific Ag, Serum - 01/07/17 09:03 Prostate Specific Ag, Serum 3.0 ng/mL 0.0-4.0 Complete blood count (CBC) with automated white [...] protein measurement (mass/volume) 0.50 mg /dL 0.00-0.50 C-Reactive Protein - 06/28/17 22:54 C-Reactive Protein 0.74 mg/dL 0.00-0.50 Comprehensive Metabolic Panel - 06/28/17 22:54 Albumin 3.8 g/dL 3.6-5.1 ALP 80 U/L 35-130 ALT 57 U/L 6-45 Anion Gap 15 6-14 AST 39 U/L 2-40 BUN 18 mg/dL 5-25 Calcium 9.4 mg/dL 8.3-10.4 Chloride 107 mmol/L 95-114 CO2 22 mEq/L 22-33 Creat 1.20 mg/dL 0.50-1.50 eGFR 62 mL/min/1.73m2 >59 Globulin 3.0 g/dL 2.3-3.5 Glucose 102 mg/dL 70-110 Osmo 291 280-295 Potassium 3.9 mmol/L 3.5-5.3 Sodium 140 mmol/L 134-148 TBil 0.6 mg/dL 0.2-1.2 TP 6.8 g/dL 6.0-8.3 IFOBT Occult Blood - 06/28/17 23:10 IFOBT Occult Blood POSITIVE Negative Methicillin resistant Staphylococcus aureus (MRSA) screening culture - 09:10 Methicillin resistant Staphylococcus aureus (MRSA) screening culture NEG [facility] Automated blood complete blood count [...] poor plasma by coagulation assay See Footnote [facility] Prothrombin gene [id number] mutation detection - 08/23/17 11:01 Prothrombin gene [id number] mutation detection See footnote [facility] Comprehensive metabolic panel - 09/01/17 21:21 Serum or plasma sodium measurement (moles/volume) 138 mmol/L 135-145 Serum or plasma potassium measurement (moles/volume) 5.4 mmol/L 3.6-5.0 Serum or plasma chloride measurement (moles/volume) 104 mmol/L 98-107 Carbon dioxide 22 mmol/L -32 Serum or plasma anion gap determination (moles/volume) [...] Staphylococcus aureus (MRSA) screening culture NEG NRG Complete blood count (CBC) with automated white blood cell (WBC) differential - 09/25/17 20:20 Blood leukocytes automated count (number/volume) 9.6 10*3/uL 4.3-11.0 Blood erythrocytes automated count (number/volume) 5.49 10*6/uL 4.35-5.85 Venous blood hemoglobin measurement (mass/volume) 15.2 g/dL 13.3-17.7 Blood hematocrit (volume fraction) 43 % 40-54 Automated erythrocyte mean corpuscular volume 79 [foz_us] 80-99 Automated erythrocyte mean corpuscular hemoglobin (mass per erythrocyte) 28 pg 25-34 Automated erythrocyte mean corpuscular hemoglobin concentration measurement ( mass/volume) 35 g/dL 32-36 Automated erythrocyte distribution width ratio 14.2 % 10.0-14.5 Automated blood platelet count (count/volume) 399 10*3/uL 130-400 Automated blood platelet mean volume measurement 9.6 [foz_us] 7.4-10.4 Automated blood neutrophils/100 leukocytes 54 % 42-75 Automated blood lymphocytes/100 leukocytes 23 % 12-44 Blood monocytes/100 leukocytes 16 % 0-12 Automated blood eosinophils/100 leukocytes 6 % 0-10 Automated blood basophils/100 leukocytes 1 % 0-10 Blood neutrophils automated count (number/volume) 5.2 10*3 1.8-7.8 Blood lymphocytes automated count (number/volume) 2.2 10*3 1.0-4.0 Blood monocytes automated count (number/volume) 1.6 10*3 0.0-1.0 Automated eosinophil count 0.6 10*3/uL 0.0-0.3 Automated blood basophil count (count/volume) 0.1 10*3/uL 0.0-0.1 PT panel in platelet poor plasma by coagulation assay - 09/25/17 20:20 Prothrombin time (PT) in platelet poor plasma by coagulation assay 12.6 s 12.2-14.7 INR in platelet poor plasma or blood by coagulation assay 0.9 0.8-1.4 Activated partial thromboplastin time (aPTT) in platelet poor plasma bycoagulation assay - 09/25/17 20:20 Activated partial thromboplastin time (aPTT) in platelet poor plasma bycoagulation assay 27 s 24-35 Comprehensive metabolic panel - 09/25/17 20:20 Serum or plasma sodium measurement (moles/volume) 141 mmol/L 135-145 Serum or plasma potassium measurement (moles/volume) 4.1 mmol/L 3.6-5.0 Serum or plasma chloride measurement (moles/volume) 105 mmol/L 98-107 Carbon dioxide 25 mmol/L 21-32 Serum or plasma anion gap determination (moles/volume) 11 mmol/L 5-14 Serum or plasma urea nitrogen measurement (mass/volume) 13 mg/dL 7-18 Serum or plasma creatinine measurement (mass/volume) 1.04 mg/dL 0.60-1.30 Serum or plasma urea nitrogen/creatinine mass ratio 13 NRG Serum or plasma creatinine measurement with calculation of estimated glomerular filtration rate > NRG Serum or plasma glucose measurement (mass/volume) 103 mg/dL 70-105 Serum or plasma calcium measurement (mass/volume) 9.2 mg/dL 8.5-10.1 Serum or plasma total bilirubin measurement (mass/volume) 0.3 mg/dL 0.1-1.0 Serum or plasma alkaline phosphatase measurement (enzymatic activity/volume) 85 U/L 40-136 Serum or plasma aspartate aminotransferase measurement (enzymatic activity/ volume) 21 U/L 5-34 Serum or plasma alanine aminotransferase measurement (enzymatic activity/volume ) 30 U/L 0-55 Serum or plasma protein measurement (mass/volume) 6.9 g/dL 6.4-8.2 Serum or plasma albumin measurement (mass/volume) 3.8 g/dL 3.2-4.5 Magnesium - 09/25/17 20:20 Magnesium 2.1 mg/dL 1.8-2.4 Serum or plasma lithium measurement (moles/volume) - 09/25/17 20:20 BNP level 72.3 pg/mL <100.0 Serum or plasma troponin i.cardiac measurement (mass/volume) - 09/25/17 20:20 Serum or plasma troponin i.cardiac measurement (mass/volume) < ng/ mL <0.30 Myoglobin, serum - 09/25/17 20:20 Myoglobin, serum 53.8 ng/mL 10.0-92.0 Complete blood count (CBC) with automated white blood cell (WBC) differential - 11/12/17 11:55 Blood leukocytes automated count (number/volume) 8.8 10*3/uL 4.3-11.0 Blood erythrocytes automated count (number/volume) 5.75 10*6/uL 4.35-5.85 Venous blood hemoglobin measurement (mass/volume) 16.2 g/dL 13.3-17.7 Blood hematocrit (volume fraction) 46 % 40-54 Automated erythrocyte mean corpuscular volume 81 [foz_us] 80-99 Automated erythrocyte mean corpuscular hemoglobin (mass per erythrocyte) 28 pg 25-34 Automated erythrocyte mean corpuscular hemoglobin concentration measurement ( mass/volume) 35 g/dL 32-36 Automated erythrocyte distribution width ratio 16.3 % 10.0-14.5 Automated blood platelet count (count/volume) 490 10*3/uL 130-400 Automated blood platelet mean volume measurement 10.0 [foz_us] 7.4-10.4 Automated blood neutrophils/100 leukocytes 60 % 42-75 Automated blood lymphocytes/100 leukocytes 22 % 12-44 Blood monocytes/100 leukocytes 14 % 0-12 Automated blood eosinophils/100 leukocytes 3 % 0-10 Automated blood basophils/100 leukocytes 1 % 0-10 Blood neutrophils automated count (number/volume) 5.3 10*3 1.8-7.8 Blood lymphocytes automated count (number/volume) 1.9 10*3 1.0-4.0 Blood monocytes automated count (number/volume) 1.2 10*3 0.0-1.0 Automated eosinophil count 0.3 10*3/uL 0.0-0.3 Automated blood basophil count (count/volume) 0.1 10*3/uL 0.0-0.1 Comprehensive metabolic panel - 11/12/17 11:55 Serum or plasma sodium measurement (moles/volume) 139 mmol/L 135-145 Serum or plasma potassium measurement (moles/volume) 4.5 mmol/L 3.6-5.0 Serum or plasma chloride measurement (moles/volume) 107 mmol/L 98-107 Carbon dioxide 24 mmol/L 21-32 Serum or plasma anion gap determination (moles/volume) 8 mmol/L 5-14 Serum or plasma urea nitrogen measurement (mass/volume) 14 mg/dL 7-18 Serum or plasma creatinine measurement (mass/volume) 1.10 mg/dL 0.60-1.30 Serum or plasma urea nitrogen/creatinine mass ratio 13 NRG Serum or plasma creatinine measurement with calculation of estimated glomerular filtration rate > NRG Serum or plasma glucose measurement (mass/volume) 93 mg/dL 70-105 Serum or plasma calcium measurement (mass/volume) 9.5 mg/dL 8.5-10.1 Serum or plasma total bilirubin measurement (mass/volume) 0.5 mg/dL 0.1-1.0 Serum or plasma alkaline phosphatase measurement (enzymatic activity/volume) 87 U/L 40-136 Serum or plasma aspartate aminotransferase measurement (enzymatic activity/ volume) 20 U/L 5-34 Serum or plasma alanine aminotransferase measurement (enzymatic activity/volume ) 30 U/L 0-55 Serum or plasma protein measurement (mass/volume) 6.8 g/dL 6.4-8.2 Serum or plasma albumin measurement (mass/volume) 4.0 g/dL 3.2-4.5 Body fluid hepatitis B virus surface antigen detection - 11/12/17 11:55 Confirmatory quantitative serum or plasma hepatitis B virus surface antigen measurement Non-Reactive Non-Reactive Hepatitis C virus RNA viral load by probe and target amplification method ( units/volume) - 11/12/17 11:55 Hepatitis C virus (HCV) RNA viral load measurement (log number/volume) 6.90 % <=1.07 Hepatitis C virus (HCV) RNA detection by PCR with reflex to quantitation [id number] <=11 HEPATITIS C GENOTYPE - 11/12/17 11:55 Blood hepatitis C virus genotype identification by probe and target amplification method Type 1A NRG Complete blood count (CBC) with automated white blood cell (WBC) differential - 06/24/18 12:38 Blood leukocytes automated count (number/volume) 8.1 10*3/uL 4.3-11.0 Blood erythrocytes automated count (number/volume) 5.75 10*6/uL 4.35-5.85 Venous blood hemoglobin measurement (mass/volume) 16.3 g/dL 13.3-17.7 Blood hematocrit (volume fraction) 47 % 40-54 Automated erythrocyte mean corpuscular volume 82 [foz_us] 80-99 Automated erythrocyte mean corpuscular hemoglobin (mass per erythrocyte) 28 pg 25-34 Automated erythrocyte mean corpuscular hemoglobin concentration measurement ( mass/volume) 35 g/dL 32-36 Automated erythrocyte distribution width ratio 15.0 % 10.0-14.5 Automated blood platelet count (count/volume) 478 10*3/uL 130-400 Automated blood platelet mean volume measurement 9.9 [foz_us] 7.4-10.4 Automated blood neutrophils/100 leukocytes 58 % 42-75 Automated blood lymphocytes/100 leukocytes 21 % 12-44 Blood monocytes/100 leukocytes 15 % 0-12 Automated blood eosinophils/100 leukocytes 5 % 0-10 Automated blood basophils/100 leukocytes 1 % 0-10 Blood neutrophils automated count (number/volume) 4.7 10*3 1.8-7.8 Blood lymphocytes automated count (number/volume) 1.7 10*3 1.0-4.0 Blood monocytes automated count (number/volume) 1.2 10*3 0.0-1.0 Automated eosinophil count 0.4 10*3/uL 0.0-0.3 Automated blood basophil count (count/volume) 0.1 10*3/uL 0.0-0.1 PT panel in platelet poor plasma by coagulation assay - 06/24/18 12:38 Prothrombin time (PT) in platelet poor plasma by coagulation assay 12.2 s 12.2-14.7 INR in platelet poor plasma or blood by coagulation assay 0.9 0.8-1.4 Comprehensive metabolic panel - 06/24/18 12:38 Serum or plasma sodium measurement (moles/volume) 138 mmol/L 135-145 Serum or plasma potassium measurement (moles/volume) 4.3 mmol/L 3.6-5.0 Serum or plasma chloride measurement (moles/volume) 108 mmol/L 98-107 Carbon dioxide 21 mmol/L 21-32 Serum or plasma anion gap determination (moles/volume) 9 mmol/L 5-14 Serum or plasma urea nitrogen measurement (mass/volume) 14 mg/dL 7-18 Serum or plasma creatinine measurement (mass/volume) 1.18 mg/dL 0.60-1.30 Serum or plasma urea nitrogen/creatinine mass ratio 12 NRG Serum or plasma creatinine measurement with calculation of estimated glomerular filtration rate > NRG Serum or plasma glucose measurement (mass/volume) 88 mg/dL 70-105 Serum or plasma calcium measurement (mass/volume) 10.0 mg/dL 8.5-10.1 Serum or plasma total bilirubin measurement (mass/volume) 0.3 mg/dL 0.1-1.0 Serum or plasma alkaline phosphatase measurement (enzymatic activity/volume) 71 U/L 40-136 Serum or plasma aspartate aminotransferase measurement (enzymatic activity/ volume) 12 U/L 5-34 Serum or plasma alanine aminotransferase measurement (enzymatic activity/volume ) 15 U/L 0-55 Serum or plasma protein measurement (mass/volume) 6.9 g/dL 6.4-8.2 Serum or plasma albumin measurement (mass/volume) 3.9 g/dL 3.2-4.5 CALCIUM CORRECTED 10.1 mg/dL 8.5-10.1 Serum or plasma paowh-2-uixlsjhcudr.tumor marker measurement (mass/volume) - 12:38 Serum or plasma wlbbl-7-vsqsnzgtpik.tumor marker measurement (mass/volume) 6.0 % 0.0-8.8 Hepatitis C virus RNA viral load by probe and target amplification method ( units/volume) - 06/24/18 12:38 Hepatitis C virus (HCV) RNA viral load measurement (log number/volume) Not Detected Not Detected Hepatitis C virus (HCV) RNA detection by PCR with reflex to quantitation Not Detected Not Detected Thyroid Stimulating Hormone - 08/05/18 14:43 TSH 1.68 mIU/mL 0.32-5.00 iStat BMP - 08/05/18 14:43 BUN 20 mg/dL 5-25 Chloride 101 mmol/L 95-114 CO2 21 mEq/L 22-33 Creat 1.10 mg/dL 0.50-1.50 eGFR 68 mL/min/1.73m2 >59 Glucose 137 mg/dL 70-110 Ionized Ca 1.13 mmol/L 1.12-1.32 Potassium 3.5 mmol/L 3.5-5.3 Sodium 140 mmol/L 134-148 Troponin I - 08/05/18 18:00 Troponin <0.020 ng/mL 0.0-0.4 Cardiac Panel - 08/05/18 21:52 CK 76 U/L 26-174 CK-MB 0.1 ng/ml 0.0-9.2 Myoglobin 58.6 ng/ml 1.6-154.9 Troponin <0.020 ng/mL 0.0-0.4 Cardiac Panel - 08/06/18 07:15 CK 75 U/L 26-174 CK-MB 0.6 ng/ml 0.0-9.2 Myoglobin 53.8 ng/ml 1.6-154.9 Troponin <0.020 ng/mL 0.0-0.4 Complete blood count (CBC) with automated white blood cell (WBC) differential - 10/04/18 10:34 Blood leukocytes automated count (number/volume) 9.4 10*3/uL 4.3-11.0 Blood erythrocytes automated count (number/volume) 5.64 10*6/uL 4.35-5.85 Venous blood hemoglobin measurement (mass/volume) 16.1 g/dL 13.3-17.7 Blood hematocrit (volume fraction) 48 % 40-54 Automated erythrocyte mean corpuscular volume 84 [foz_us] 80-99 Automated erythrocyte mean corpuscular hemoglobin (mass per erythrocyte) 29 pg 25-34 Automated erythrocyte mean corpuscular hemoglobin concentration measurement ( mass/volume) 34 g/dL 32-36 Automated erythrocyte distribution width ratio 15.7 % 10.0-14.5 Automated blood platelet count (count/volume) 438 10*3/uL 130-400 Automated blood platelet mean volume measurement 10.4 [foz_us] 7.4-10.4 Automated blood neutrophils/100 leukocytes 65 % 42-75 Automated blood lymphocytes/100 leukocytes 17 % 12-44 Blood monocytes/100 leukocytes 12 % 0-12 Automated blood eosinophils/100 leukocytes 4 % 0-10 Automated blood basophils/100 leukocytes 1 % 0-10 Blood neutrophils automated count (number/volume) 6.2 10*3 1.8-7.8 Blood lymphocytes automated count (number/volume) 1.6 10*3 1.0-4.0 Blood monocytes automated count (number/volume) 1.2 10*3 0.0-1.0 Automated eosinophil count 0.4 10*3/uL 0.0-0.3 Automated blood basophil count (count/volume) 0.1 10*3/uL 0.0-0.1 Complete blood count (CBC) with automated white blood cell (WBC) differential - 10/04/18 10:34 Blood leukocytes automated count (number/volume) 9.4 10*3/uL 4.3-11.0 Blood erythrocytes automated count (number/volume) 5.64 10*6/uL 4.35-5.85 Venous blood hemoglobin measurement (mass/volume) 16.1 g/dL 13.3-17.7 Blood hematocrit (volume fraction) 48 % 40-54 Automated erythrocyte mean corpuscular volume 84 [foz_us] 80-99 Automated erythrocyte mean corpuscular hemoglobin (mass per erythrocyte) 29 pg 25-34 Automated erythrocyte mean corpuscular hemoglobin concentration measurement ( mass/volume) 34 g/dL 32-36 Automated erythrocyte distribution width ratio 15.7 % 10.0-14.5 Automated blood platelet count (count/volume) 438 10*3/uL 130-400 Automated blood platelet mean volume measurement 10.4 [foz_us] 7.4-10.4 Automated blood neutrophils/100 leukocytes 65 % 42-75 Automated blood lymphocytes/100 leukocytes 17 % 12-44 Blood monocytes/100 leukocytes 12 % 0-12 Automated blood eosinophils/100 leukocytes 4 % 0-10 Automated blood basophils/100 leukocytes 1 % 0-10 Blood neutrophils automated count (number/volume) 6.2 10*3 1.8-7.8 Blood lymphocytes automated count (number/volume) 1.6 10*3 1.0-4.0 Blood monocytes automated count (number/volume) 1.2 10*3 0.0-1.0 Automated eosinophil count 0.4 10*3/uL 0.0-0.3 Automated blood basophil count (count/volume) 0.1 10*3/uL 0.0-0.1 Comprehensive metabolic panel - 10/04/18 10:34 Serum or plasma sodium measurement (moles/volume) 139 mmol/L 135-145 Serum or plasma potassium measurement (moles/volume) 4.3 mmol/L 3.6-5.0 Serum or plasma chloride measurement (moles/volume) 107 mmol/L 98-107 Carbon dioxide 22 mmol/L 21-32 Serum or plasma anion gap determination (moles/volume) 10 mmol/L 5-14 Serum or plasma urea nitrogen measurement (mass/volume) 19 mg/dL 7-18 Serum or plasma creatinine measurement (mass/volume) 1.19 mg/dL 0.60-1.30 Serum or plasma urea nitrogen/creatinine mass ratio 16 NRG Serum or plasma creatinine measurement with calculation of estimated glomerular filtration rate > NRG Serum or plasma glucose measurement (mass/volume) 98 mg/dL 70-105 Serum or plasma calcium measurement (mass/volume) 9.4 mg/dL 8.5-10.1 Serum or plasma total bilirubin measurement (mass/volume) 0.3 mg/dL 0.1-1.0 Serum or plasma alkaline phosphatase measurement (enzymatic activity/volume) 67 U/L 40-136 Serum or plasma aspartate aminotransferase measurement (enzymatic activity/ volume) 16 U/L 5-34 Serum or plasma alanine aminotransferase measurement (enzymatic activity/volume ) 16 U/L 0-55 Serum or plasma protein measurement (mass/volume) 6.7 g/dL 6.4-8.2 Serum or plasma albumin measurement (mass/volume) 3.9 g/dL 3.2-4.5 CALCIUM CORRECTED 9.5 mg/dL 8.5-10.1 Comprehensive metabolic panel - 10/04/18 10:34 Serum or plasma sodium measurement (moles/volume) 140 mmol/L 135-145 Serum or plasma potassium measurement (moles/volume) 4.3 mmol/L 3.6-5.0 Serum or plasma chloride measurement (moles/volume) 108 mmol/L 98-107 Carbon dioxide 22 mmol/L 21-32 Serum or plasma anion gap determination (moles/volume) 10 mmol/L 5-14 Serum or plasma urea nitrogen measurement (mass/volume) 19 mg/dL 7-18 Serum or plasma creatinine measurement (mass/volume) 1.18 mg/dL 0.60-1.30 Serum or plasma urea nitrogen/creatinine mass ratio 16 NRG Serum or plasma creatinine measurement with calculation of estimated glomerular filtration rate > NRG Serum or plasma glucose measurement (mass/volume) 100 mg/dL 70-105 Serum or plasma calcium measurement (mass/volume) 9.3 mg/dL 8.5-10.1 Serum or plasma total bilirubin measurement (mass/volume) 0.3 mg/dL 0.1-1.0 Serum or plasma alkaline phosphatase measurement (enzymatic activity/volume) 68 U/L 40-136 Serum or plasma aspartate aminotransferase measurement (enzymatic activity/ volume) 17 U/L 5-34 Serum or plasma alanine aminotransferase measurement (enzymatic activity/volume ) 16 U/L 0-55 Serum or plasma protein measurement (mass/volume) 6.7 g/dL 6.4-8.2 Serum or plasma albumin measurement (mass/volume) 3.8 g/dL 3.2-4.5 CALCIUM CORRECTED 9.5 mg/dL 8.5-10.1 THYROID STIMULATING HORMONE - 10/04/18 10:34 THYROID STIMULATING HORMONE 3.56 u[iU]/mL 0.35-4.94 Serum or plasma thyroxine (T4) free measurement (mass/volume) - 10/04/18 10:34 Serum or plasma thyroxine (T4) free measurement (mass/volume) 1.12 ng/dL 0.70-1.48 Serum or plasma uxmik-7-mexhykglwxt.tumor marker measurement (mass/volume) - 10:34 Serum or plasma avghk-9-axjcxmbnreh.tumor marker measurement (mass/volume) 6.0 % 0.0-8.8 Hepatitis C virus RNA viral load by probe and target amplification method ( units/volume) - 10/04/18 10:34 Hepatitis C virus (HCV) RNA viral load measurement (log number/volume) Not Detected Not Detected Hepatitis C virus (HCV) RNA detection by PCR with reflex to quantitation Not Detected Not Detected Serum or plasma troponin i.cardiac measurement (mass/volume) - 10/12/18 20:30 Serum or plasma troponin i.cardiac measurement (mass/volume) 0.058 ng/mL <0.028 THYROID STIMULATING HORMONE - 10/12/18 20:30 THYROID STIMULATING HORMONE 4.22 u[iU]/mL 0.35-4.94 Serum or plasma thyroxine (T4) free measurement (mass/volume) - 10/12/18 20:30 Serum or plasma thyroxine (T4) free measurement (mass/volume) 1.11 ng/dL 0.70-1.48 Methicillin resistant Staphylococcus aureus (MRSA) screening culture - 20:38 Methicillin resistant Staphylococcus aureus (MRSA) screening culture NEG NRG Complete blood count (CBC) with automated white blood cell (WBC) differential - 10/13/18 03:33 Blood leukocytes automated count (number/volume) 8.5 10*3/uL 4.3-11.0 Blood erythrocytes automated count (number/volume) 4.68 10*6/uL 4.35-5.85 Venous blood hemoglobin measurement (mass/volume) 13.2 g/dL 13.3-17.7 Blood hematocrit (volume fraction) 39 % 40-54 Automated erythrocyte mean corpuscular volume 84 [foz_us] 80-99 Automated erythrocyte mean corpuscular hemoglobin (mass per erythrocyte) 28 pg 25-34 Automated erythrocyte mean corpuscular hemoglobin concentration measurement ( mass/volume) 34 g/dL 32-36 Automated erythrocyte distribution width ratio 15.5 % 10.0-14.5 Automated blood platelet count (count/volume) 383 10*3/uL 130-400 Automated blood platelet mean volume measurement 10.1 [foz_us] 7.4-10.4 Automated blood neutrophils/100 leukocytes 54 % 42-75 Automated blood lymphocytes/100 leukocytes 25 % 12-44 Blood monocytes/100 leukocytes 16 % 0-12 Automated blood eosinophils/100 leukocytes 5 % 0-10 Automated blood basophils/100 leukocytes 1 % 0-10 Blood neutrophils automated count (number/volume) 4.6 10*3 1.8-7.8 Blood lymphocytes automated count (number/volume) 2.1 10*3 1.0-4.0 Blood monocytes automated count (number/volume) 1.3 10*3 0.0-1.0 Automated eosinophil count 0.4 10*3/uL 0.0-0.3 Automated blood basophil count (count/volume) 0.1 10*3/uL 0.0-0.1 Serum or plasma phosphate measurement (mass/volume) - 10/13/18 03:33 Serum or plasma phosphate measurement (mass/volume) 3.4 mg/dL 2.3-4.7 Magnesium - 10/13/18 03:33 Magnesium 2.0 mg/dL 1.8-2.4 Comprehensive metabolic panel - 10/13/18 03:33 Serum or plasma sodium measurement (moles/volume) 139 mmol/L 135-145 Serum or plasma potassium measurement (moles/volume) 4.1 mmol/L 3.6-5.0 Serum or plasma chloride measurement (moles/volume) 111 mmol/L 98-107 Carbon dioxide 21 mmol/L 21-32 Serum or plasma anion gap determination (moles/volume) 7 mmol/L 5-14 Serum or plasma urea nitrogen measurement (mass/volume) 17 mg/dL 7-18 Serum or plasma creatinine measurement (mass/volume) 0.94 mg/dL 0.60-1.30 Serum or plasma urea nitrogen/creatinine mass ratio 18 NRG Serum or plasma creatinine measurement with calculation of estimated glomerular filtration rate > NRG Serum or plasma glucose measurement (mass/volume) 88 mg/dL 70-105 Serum or plasma calcium measurement (mass/volume) 8.5 mg/dL 8.5-10.1 Serum or plasma total bilirubin measurement (mass/volume) 0.4 mg/dL 0.1-1.0 Serum or plasma alkaline phosphatase measurement (enzymatic activity/volume) 51 U/L 40-136 Serum or plasma aspartate aminotransferase measurement (enzymatic activity/ volume) 13 U/L 5-34 Serum or plasma alanine aminotransferase measurement (enzymatic activity/volume ) 11 U/L 0-55 Serum or plasma protein measurement (mass/volume) 4.8 g/dL 6.4-8.2 Serum or plasma albumin measurement (mass/volume) 3.1 g/dL 3.2-4.5 CALCIUM CORRECTED 9.2 mg/dL 8.5-10.1 Serum or plasma troponin i.cardiac measurement (mass/volume) - 10/13/18 03:33 Serum or plasma troponin i.cardiac measurement (mass/volume) 0.048 ng/mL <0.028 Encounters ACCT No. Visit Date/Time Discharge Status Pt. Type Provider Facility Loc./Unit Complaint [id number] 12/21/2014 14:36:00 12/21/2014 23:59:59 CLS Outpatient VIRGEN DOYOCASTAA Syeda [id number] 11/05/2014 10:03:00 11/05/2014 23:59:59 CLS Outpatient VIRGEN DOSHERRON [id number] 11/05/2014 09:04:00 11/05/2014 23:59:59 CLS Outpatient OLIVIA AUGUSTINE [id number] 09/27/2014 12:57:00 09/27/2014 23:59:59 CLS Outpatient VIRGEN DOSHERRON [id number] 08/22/2014 08:19:00 08/22/2014 23:59:59 CLS Outpatient OLIVIA AUGUSTINE [id number] 08/20/2014 11:14:00 08/20/2014 23:59:59 CLS Outpatient VIRGEN DOSHERRON [id number] 08/20/2014 10:45:00 08/20/2014 23:59:59 CLS Outpatient VIRGEN DOSHERRON [id number] 07/23/2014 12:53:00 07/23/2014 23:59:59 CLS Outpatient VIRGEN DOYOCASTAA Syeda [id number] 07/23/2014 12:53:00 07/23/2014 23:59:59 CLS Outpatient VIRGEN DO SHERRON Syeda [id number] 06/21/2014 11:51:00 06/21/2014 23:59:59 CLS Outpatient VIRGEN DO SHERRON Syeda [id number] 06/20/2014 09:06:00 06/20/2014 23:59:59 CLS Outpatient VIRGEN DO SHERRON Syeda [id number] 06/05/2014 11:28:00 06/05/2014 23:59:59 CLS Outpatient VIRGEN DO SHERRON Syeda [id number] 05/08/2014 13:37:00 05/08/2014 23:59:59 CLS Outpatient VIRGEN DOSHERRON [id number] 04/11/2014 12:20:00 04/11/2014 23:59:59 CLS Outpatient PARAM DOSHERRON [id number] 03/12/2014 09:18:00 03/12/2014 23:59:59 CLS Outpatient PARAM DOSHERRON [id number] 02/19/2014 08:24:00 02/19/2014 23:59:59 CLS Outpatient RAFAEL MONTES DE OCANRYAN [id number] 02/13/2014 08:48:00 02/13/2014 23:59:59 CLS Outpatient VIRGEN DOSHERRON [id number] 12/12/2013 16:22:00 12/12/2013 23:59:59 CLS Outpatient BRENNEN MICHELE APRN [id number] 10/04/2013 09:47:00 10/04/2013 23:59:59 CLS Outpatient BRENNEN MICHELE APRN [id number] 01/23/2013 11:08:00 01/23/2013 23:59:59 CLS Outpatient BRENNEN MICHELE APRN [id number] 09/06/2012 10:35:00 09/06/2012 23:59:59 CLS Outpatient BRENNEN MICHELE APRN [id number] 04/08/2012 09:14:00 04/08/2012 23:59:59 CLS Outpatient [id number] 01/10/2013 11:04:00 Document Registration [id number] 09/24/2017 09:08:55 09/24/2017 23:59:59 CLS Outpatient [id number] 10/12/2018 19:36:00 10/13/2018 15:26:00 DIS Inpatient NIC LÓPEZ MD [facility] ICU AFIB W RVR AND CP [id number] 10/04/2018 10:11:00 10/04/2018 23:59:59 CLS Outpatient EMILIE BANEGAS APRN [facility] LAB I10 [id number] 10/04/2018 10:08:00 10/04/2018 23:59:59 CLS Outpatient JEOVANNY JAMES MD [facility] LAB SEE ORDER [id number] 09/05/2018 00:11:00 09/05/2018 23:59:59 CLS Preadmit CARRINGTON GARAY [facility] [place] [id number] CARDIAC REHAB PHASE III [id number] 08/05/2018 08:18:00 09/04/2018 00:01:00 DIS Outpatient CARRINGTON GARAY [facility] [place] [id number] CARDIAC REHAB PHASE III [id number] 08/23/2018 10:33:00 08/23/2018 23:59:59 CLS Outpatient EMILIE BANEGAS APRN [facility] RAD ELEVATED TSH,THYROID TENDERNESS [id number] 08/03/2018 07:26:00 08/03/2018 00:01:00 DIS Outpatient CARRINGTON GARAY [facility] [place] [id number] CARDIAC REHAB PHASE III [id number] 06/24/2018 12:24:00 06/24/2018 23:59:59 CLS Outpatient JEOVANNY JAMES MD [facility] LAB B18.2 [id number] 02/18/2018 08:28:00 02/18/2018 23:59:59 CLS Outpatient EMILIE BANEGAS APRN [facility] RAD GROIN PAIN,HERNIA [id number] 11/12/2017 11:37:00 11/12/2017 23:59:59 CLS Outpatient JEOVANNY JAMES MD [facility] LAB B18.2 [id number] 11/09/2017 11:00:00 11/09/2017 23:59:59 CLS Preadmit EMILIE BANEGAS APRN [facility] RAD NECK PAIN,LOW BACK PAIN [id number] 10/07/2017 08:00:00 10/07/2017 23:59:59 CLS Preadmit Kitty PATTERSON MD [facility] CARD R07.9 CHEST PAIN [id number] 09/25/2017 20:08:00 09/25/2017 21:54:00 DIS Emergency MAHI PANIAGUA DO [facility] ER CP [id number] 09/24/2017 04:14:00 09/24/2017 16:25:00 DIS Inpatient JUAN MANUEL EVANS DO [facility] ICU A-FIB [id number] 09/01/2017 21:13:00 09/01/2017 23:09:00 DIS Emergency MAHI PANIAGUA DO [facility] ER LEG CRAMPS;CHEST PAIN; BLOOD CLOTS [id number] 08/21/2017 08:27:00 08/24/2017 13:45:00 DIS Inpatient NATHAN MELCHOR JUAN MANUEL [facility] 4TH PE,HYPOXIA [id number] 07/14/2017 09:27:00 07/14/2017 13:45:00 DIS Outpatient IMMANUEL FRANCO MD [facility] ENDO ABD. PAIN/HX DIVERTICULITIS [id number] 07/12/2017 05:37:00 07/12/2017 13:22:00 DIS Outpatient IMMANUEL FRANCO MD [facility] PREOP ABD. PAIN/HX DIVERTICULITIS [id number] 06/28/2017 20:15:00 06/28/2017 21:29:00 DIS Emergency ZAIRA DRAPER, TERESA Caal [facility] ER ABD PAIN/PASSING BLOOD IN STOOL [id number] 06/27/2017 19:26:00 06/27/2017 22:19:00 DIS Emergency SAJAN CRUZ MD [facility] ER AB PAIN [id number] 05/13/2017 11:16:00 05/13/2017 23:59:59 CLS Preadmit NAHOMI FLORES MD [facility] RAD MASS OF SINUS [id number] 02/16/2015 22:13:00 02/18/2015 12:04:00 DIS Inpatient GILES CHRISTIANSON MD [facility] CSD TACHYCARDIA [id number] 11/22/2017 10:40:00 Document Registration [id number] 02/18/2015 08:22:00 Document Registration [id number] 02/18/2015 08:21:00 Document Registration [id number] 02/18/2015 08:21:00 Document Registration [id number] 02/18/2015 08:21:00 Document Registration [id number] 09/20/2011 01:05:00 Document Registration [id number] 09/06/2011 00:55:00 Document Registration [id number] 04/10/2011 10:45:00 Document Registration [id number] 02/23/2011 16:44:00 Document Registration [id number] 02/21/2011 17:19:00 Document Registration [id number] 02/21/2011 08:45:00 Document Registration [id number] 02/14/2011 14:03:00 Document Registration [id number] 02/01/2011 20:31:00 Document Registration [id number] 10/29/2010 19:11:00 Document Registration [id number] 02/11/2010 06:03:00 Document Registration [id number] 01/08/2017 10:09:00 Document Registration [id number] 08/05/2018 14:25:00 08/06/2018 08:30:00 DIS Outpatient [facility] [id number] 06/28/2017 21:46:00 06/29/2017 02:10:00 DIS Outpatient ROSITA WATKINS [id number] 06/28/2017 23:55:46 Document Registration [id number] 09/02/2017 11:40:00 09/02/2017 23:59:59 CLS Outpatient MARK DRAPER, NAHOMI [facility]
[2018-11-24 05:12] LABS: BASOPHILS % (AUTO) 1 % (0-10); EOSINOPHILS % (AUTO) 3 % (0-10); LYMPHOCYTES # (AUTO) 0.8 X 10^3 (1.0-4.0); LYMPHOCYTES % (AUTO) 7 % (12-44); MEAN PLATELET VOLUME 9.6 FL (7.4-10.4); MONOCYTES % (AUTO) 11 % (0-12); NEUTROPHILS # (AUTO) 9.2 X 10^3 (1.8-7.8); NEUTROPHILS % (AUTO) 79 % (42-75)
[2018-11-24 05:13] LABS: BASOPHILS # (AUTO) 0.1 10^3/uL (0.0-0.1); EOSINOPHILS # (AUTO) 0.3 10^3/uL (0.0-0.3); MONOCYTES # (AUTO) 1.3 X 10^3 (0.0-1.0)
[2018-11-24] MEDS ORDERED: METOCLOPRAMIDE INJ 10 MG/2 ML (REGLAN) IVP STA (05:13)
[2018-11-24] MEDS ORDERED: diphenhydrAMINE 50 MG/ML INJ (BENADRYL) IVP STA (05:13)
[2018-11-24 05:26] LABS: BAND NEUTROPHILS 2 %; BASOPHILS % (MANUAL) 0 %; EOSINOPHILS % (MANUAL) 2 %; LYMPHOCYTES % (MANUAL) 3 %; MONOCYTES % (MANUAL) 7 %; NEUTROPHILS % (MANUAL) 86 %
[2018-11-24 05:27] LABS: PROTHROMBIN TIME PATIENT 13.1 SEC (12.2-14.7)
[2018-11-24 05:30] VITALS: BP 100/71
[2018-11-24 05:31] LABS: POTASSIUM 4.4 MMOL/L (3.6-5.0)
[2018-11-24 05:32] LABS: ALBUMIN 3.6 GM/DL (3.2-4.5); BILIRUBIN,TOTAL 0.2 MG/DL (0.1-1.0); CALCIUM 9.1 MG/DL (8.5-10.1); CREATININE SERUM 1.28 MG/DL (0.60-1.30); TOTAL PROTEIN 6.2 GM/DL (6.4-8.2)
[2018-11-24 06:00] VITALS: BP 118/71
[2018-11-24] MEDS ORDERED: CATHETER FLUSH 10 ML SYR IV PRN (06:00)
[2018-11-24] MEDS ORDERED: morphine INJ 10 MG/ML 1ML (SYR OR VIAL) IVP STA (06:00)
[2018-11-24] MEDS ORDERED: IOPAMIDOL 61% 100 ML (ISOVUE 300) VIAL IV ONE (06:00)
--- NOTE | 2018-11-24 06:04 | Diagnostic Imaging Report ---
CHEST 1 VIEW AP/PA ONLY Indication: Headache and dizziness Comparison: 09/25/2017 Findings: No focal airspace disease in the visualized lungs. Hazy opacities in right lung base favor summation shadow of normal pulmonary vasculature. Please note that the posterior lower lobes are poorly evaluated by portable radiography. No pleural effusion or pneumothorax. Normal cardiomediastinal silhouette. Impression: No acute cardiopulmonary process by portable radiography. Dictated by: Dictated on workstation # [id number]
--- NOTE | 2018-11-24 06:58 | NUR ---
[facility] ambulance in [place] notified of need for transfer back to [facility] due to multiple transfers in this ed.
--- NOTE | 2018-11-24 07:07 | NUR ---
[facility] will come to get pt, approximately 1.5 hrs.
--- NOTE | 2018-11-24 08:13 | Diagnostic Imaging Report ---
PROCEDURE: CT angiography of the chest with contrast. TECHNIQUE: Multiple contiguous axial images were obtained through the chest after uneventful bolus administration of intravenous contrast. 2D reconstructed CTA MIP acquisitions were also performed. INDICATION: Dizziness with atrial fibrillation and RVR. COMPARISON: CTA chest from 09/25/2017 FINDINGS: Vasculature: No central pulmonary emboli. Assessment of the bilateral lower lobe segmental and subsegmental pulmonary arteries is limited due to fairly extensive respiratory motion artifact at these levels. No CT features of right ventricular strain or pulmonary hypertension. Thoracic aorta is normal in caliber. No aortic dissection or pseudoaneurysm. Heart and mediastinum: Visualized thyroid is normal. No supraclavicular, axillary, or intra-thoracic lymphadenopathy. Heart is borderline enlarged without pericardial effusion. Pleura: No pleural effusion or pneumothorax. Lungs and airway: No endoluminal lesion in the trachea or central bronchi. No pulmonary mass or consolidation. There is a small amount of dependent atelectasis within the bilateral lower lobes. No concerning pulmonary nodule. Upper abdomen: Soft tissue stranding in the mesenteric root is similar to prior CT from 04/10/2011. Musculoskeletal: No concerning osseous lesion. IMPRESSION: 1. No evidence of central pulmonary emboli. Extensive respiratory motion artifact limits evaluation of the basilar and segmental and subsegmental pulmonary arteries. 2. No acute aortic syndrome. 3. No acute pulmonary pathology or pleural effusion. Dictated by: Dictated on workstation # [id number]
[2018-11-24 09:31] VITALS: BP 116/82
== END 2018-11-24 09:20 | disposition short-term general hospital (02) ==
LOC: ER FS 04:35 → EDBD 04:35 → MERGE 04:35 → ER FS 09:20
DX: R07.9 Chest pain, unspecified (principal); R51 Headache; Z86.711 Personal history of pulmonary embolism; Z79.01 Long term (current) use of anticoagulants
CPT/HCPCS: 36415; 71045; 71275; 80053; 83735; 84484; 85007; 85027; 85610; 85730; 93041

== ENCOUNTER 2019-01-06 15:48 | Emergency (ER) | payer MEDICAID ==
[~2019-01-06] VITALS: Ht 182.9 cm; Wt 100.7 kg
[~2019-01-06 15:48] MED LIST changes: +CARTIA XT; +ELIQUIS TAB 5MG; +LEVOTHYROXIN TAB 25MCG; +MULTAQ 400 MG
[2019-01-06 16:24] VITALS: BP 121/82
--- NOTE | 2019-01-06 16:26 | NUR ---
WHEN THIS RN WENT IN TO CARRY OUT ORDERS AND START AND IV, THE PT STATED I FEEL BETTER NOW. "I KNOW WHAT CAUSED IT NOW, I TOOK MY MEDICATIONS WITHOUT EATING AND THAT HAS MADE ME FEEL LIKE THIS BEFORE. I DO NOT WANT TO BE SEEN NOW." ADVISED DR POST OF PTS WISHES. THIS RN EXPLAINED TO MR GAFFNEY THAT THE RISK OF LEAVING COULD RESULT IN AND THAT IT WOULD BE BENEFICIAL FOR HIM TO STAY AND GET A CARDIAC WORKUP DONE. PT REFUSED AND STATED I WILL SIGN THE AMA FORM. PT LEFT ED AT THIS TIME AMBULATING.
== END 2019-01-06 16:25 | disposition home or self-care (01) ==
LOC: EDUNIT# 15:48 → ER FS 15:50
DX: R53.1 Weakness (principal); Z95.5 Presence of coronary angioplasty implant and graft
CPT/HCPCS: 99281

== ENCOUNTER 2019-03-01 11:21 | Emergency (ER) | payer MEDICAID ==
[~2019-03-01] VITALS: Ht 182.9 cm; Wt 100.7 kg
--- NOTE | 2019-03-01 12:05 | ED Integumentary General ---
General Chief Complaint: Bite-Animal/Human/Insect Stated Complaint: ABSCESS Source: patient Exam Limitations: no limitations History of Present Illness Date Seen by Provider: Mar 01, 2019 Time Seen by Provider: 11:53 Initial Comments Of the spider bite that occurred on Wednesday he went to his doctor on Wednesday. He did not see the spider but his had a spider that he saw bite him before that acted just like this. He was put on doxycycline and took one dose Wednesday. He's now been on antibiotics for 2 days. He does not have diabetes but he does have a history of A. fib with RVR on anticoagulants. He's having pain in his left tricep and increasing redness. His primary doctor told him if it's getting worse to come to the ER so he presented. There is no drainage, pointing or head. No fevers chills nausea vomiting or diarrhea. Allergies and Home Medications Allergies Coded Allergies: No Known Drug Allergies (Verified , 07/14/17) Home Medications Alprazolam 1 Mg Tablet, 1 MG PO TID PRN for ANXIETY, (Reported) Apixaban 5 Mg Tablet, 5 MG PO BID, (Reported) Diltiazem HCl 120 Mg Cap.er.24h, 120 MG PO 0500, (Reported) Dronedarone HCl 400 Mg Tablet, 400 MG PO BID Prescribed by: NIC LÓPEZ on 10/14/182020 Levothyroxine Sodium 25 Mcg Tablet, 25 MCG PO DAILY, (Reported) Oxycodone HCl 5 Mg Tablet, 5 MG PO QID PRN for PAIN-SEVERE, (Reported) Patient Home Medication List Home Medication List Reviewed: Yes Review of Systems Review of Systems Constitutional: No chills, No diaphoresis EENTM: No ear discharge, No ear pain Respiratory: No cough, No short of breath Cardiovascular: No chest pain, No edema Gastrointestinal: No abdominal pain, No nausea Genitourinary: No discharge, No dysuria Musculoskeletal: see HPI Past Mlwfudm-Ykejeo-Ahoygo Hx Patient Social History Alcohol Use: Denies Use Recreational Drug Use: No (DENIES ETOH OR TOBACCO USE) Type Used: Cigarettes Former Smoker, Quit: Jul 12, 1985 2nd Hand Smoke Exposure: No Recent Hopitalizations: No Physical Abuse: No Sexual Abuse: No Mistreated: No Fear: No Immunizations Up To Date Tetanus Booster (TDap): Unknown Date of Pneumonia Vaccine: Jul 21, 2018 Date of Influenza Vaccine: Jul 21, 2018 Seasonal Allergies Seasonal Allergies: No Past Medical History Surgeries: Yes (splenectomy, 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) Appendectomy Respiratory: No Pulmonary Embolism Cardiac: Yes (atrial flutter, portal vein thrombosis, CAD) Atrial Fibrillation, Deep Vein Thrombosis Neurological: Yes Headaches /Migraines Reproductive Disorders: No Sexually Transmitted Disease: Yes (Hep C: treated) HIV/AIDS: No Genitourinary: Yes (enlarged prostate) Prostate Problems Gastrointestinal: Yes Diverticulosis, Hemorrhoids Musculoskeletal: Yes (bulging disk lower bacck) Arthritis Endocrine: No Hypothyroidsim HEENT: No Loss of Vision: Denies Hearing Impairment: Denies Cancer: Yes (adenocarcinoma colon (polyp during colonoscopy)) What Type of Treatment Did You: Surgical Intervention Psychosocial: Yes Anxiety, Depression Integumentary: No Blood Disorders: No Adverse Reaction/Blood Tranf: No Family Medical History Heart Disease, Hypertension Physical Exam Vital Signs Capillary Refill : General Appearance: WD/WN, mild distress HEENT: PERRL/EOMI, pharynx normal Neck: full range of motion, normal inspection Cardiovascular: normal peripheral pulses, regular rate, rhythm Respiratory: no respiratory distress, no accessory muscle use Neurologic/Psychiatric: alert, normal mood/affect, oriented x 3 Skin: rash (erythematous rash consistent with cellulitis over the left upper tricep and a few less than 1 cm spots of ecchymotic discoloration at no induration, palpable fluctuance.) Progress/Results/Core Measures Results/Orders My Orders Orders - TERESA MENESES Ceftriaxone For Im Use (Rocephin For Im (03/01/19 12:15) Lidocaine 1% Inj 20 Ml (Xylocaine 1% Inj (03/01/19 12:15) Progress Progress Note : Time: 12:10 Progress Note Possible spider bite and/or developing abscess without anything to target drain presently. For his pain we'll recommend heat, Percocet. He can't use NSAIDs because of his heart. There is nothing to drain yet so we'll just give him a gram or Rocephin. Given the option to do an observation stay in the hospital with IV antibiotics but he would prefer to trial outpatient treatment still. His only 2 days end of the doxycycline so we'll give him the Rocephin today having follow-up David either with his primary care or here in the ER for repeat Rocephin and examination. Departure Impression Primary Impression: Cellulitis of left upper extremity Disposition: HOME, SELF-CARE Condition: Stable Departure-Patient Inst. Decision time for Depature: 12:12 Referrals: [facility] (PCP) Primary Care Physician NIKKI WILEY APRN (Family) Primary Care Physician Patient Instructions: Cellulitis (Skin Infection), Adult (DC) Add. Discharge Instructions: Keep the skin clean with regular soap and water. Apply heat or hot compresses every hour. If the wound begins to point or have some discharge from it and bring it back to the doctor's office or ER to have it drained. Continue taking the doxycycline twice a day and plan to follow up Wednesday with your primary care office or return to the ER if necessary. Use the Percocet 1 tablet every 6 hours as necessary for pain. All discharge instructions reviewed with patient and/or family. Voiced understanding. Scripts Oxycodone HCl/Acetaminophen (Percocet 5-325 mg Tablet) 1 Each Tablet 1 TAB PO Q6H PRN for BREAKTHROUGH PAIN MDD 6 TABS, #14 TAB 0 Refills Prov: TERESA MENESES 03/01/19 TERESA MENESES Mar 01, 2019 12:05
[2019-03-01] MEDS ORDERED: OXYC1TAB87 PO (12:14)
[2019-03-01] MEDS ORDERED: LIDOCAINE 1% INJ 20 ML 20 ML VIAL INJ ONE (12:15)
[2019-03-01] MEDS ORDERED: cefTRIAXone 1,000 MG/2.86 ml vial (IM ONLY) IM ONE (12:15)
[2019-03-01 12:17] VITALS: BP 126/70
[2019-03-01] MEDS ORDERED: OXYC-199 PO (23:28)
== END 2019-03-01 12:17 | disposition home or self-care (01) ==
LOC: EDUNIT# 11:21 → ER FS 11:23
DX: L03.114 Cellulitis of left upper limb (principal); I48.91 Unspecified atrial fibrillation; I25.10 Atherosclerotic heart disease of native coronary artery without angina pectoris; I48.92 Unspecified atrial flutter; G43.909 Migraine, unspecified, not intractable, without status migrainosus; B19.20 Unspecified viral hepatitis C without hepatic coma; E03.9 Hypothyroidism, unspecified; F41.9 Anxiety disorder, unspecified; F32.9 Major depressive disorder, single episode, unspecified; Z86.010 Personal history of colon polyps; Z87.448 Personal history of other diseases of urinary system; Z82.49 Family history of ischemic heart disease and other diseases of the circulatory system; Z87.891 Personal history of nicotine dependence; Z90.49 Acquired absence of other specified parts of digestive tract; Z90.81 Acquired absence of spleen; Z86.718 Personal history of other venous thrombosis and embolism
CPT/HCPCS: 96372; 99284

== ENCOUNTER 2019-03-01 21:53 | Emergency (ER) | payer MEDICAID ==
[~2019-03-01] VITALS: Ht 182.9 cm; Wt 99.8 kg
[~2019-03-01 21:53] MED LIST changes: +OXYC1TAB87 PO
[2019-03-01 22:55] LABS: BASOPHILS # (AUTO) 0.1 10^3/uL (0.0-0.1); BASOPHILS % (AUTO) 1 % (0-10); EOSINOPHILS # (AUTO) 0.6 10^3/uL (0.0-0.3); EOSINOPHILS % (AUTO) 5 % (0-10); HEMATOCRIT 44 % (40-54); LYMPHOCYTES % (AUTO) 18 % (12-44); MEAN CORPUSCULAR HEMOGLOBIN 28 PG (25-34); MEAN CORPUSCULAR HGB CONC 34 G/DL (32-36); MEAN CORPUSCULAR VOLUME 82 FL (80-99); MEAN PLATELET VOLUME 9.9 FL (7.4-10.4); MONOCYTES # (AUTO) 1.8 X 10^3 (0.0-1.0); MONOCYTES % (AUTO) 17 % (0-12); NEUTROPHILS # (AUTO) 6.6 X 10^3 (1.8-7.8); NEUTROPHILS % (AUTO) 60 % (42-75); PLATELET COUNT 453 10^3/uL (130-400); RED CELL DISTRIBUTION WIDTH 15.2 % (10.0-14.5)
[2019-03-01 23:16] LABS: ALBUMIN 3.9 GM/DL (3.2-4.5); BILIRUBIN,TOTAL 0.3 MG/DL (0.1-1.0); CALCIUM 9.3 MG/DL (8.5-10.1); CREATININE SERUM 1.45 MG/DL (0.60-1.30); POTASSIUM 4.1 MMOL/L (3.6-5.0); TOTAL PROTEIN 6.5 GM/DL (6.4-8.2)
[2019-03-01] MEDS ORDERED: OXYC-199 PO (23:28)
--- NOTE | 2019-03-01 23:28 | ED General ---
General Chief Complaint: Upper Extremity Stated Complaint: R ARM RASH Nursing Triage Note: Patient ambulatory to ER FT1 with complaint of left arm/elbow swelling and redness. Patient states this began last Wednesday and on Wednesday he saw his PCP and was prescribed Doxycycline which he has been taking. He states it has gotten worse and today he was seen at the [facility] ER and was given an Antibiotic injection IM. He states the ER doctor at [facility] wanted to admit him to [facility] so he decided to come in tonight. Patient believes the infection was caused by a spider bite. Nursing Sepsis Screen: No Definite Risk Source of Information: Patient Exam Limitations: No Limitations History of Present Illness Date Seen by Provider: Mar 01, 2019 Time Seen by Provider: 22:20 Initial Comments This 58-year-old man presents to the emergency room with pain, erythema, and swelling of the left upper arm that may be related to spider bite. He first noticed symptoms on March 27. He presented to his PCP 2 days later and was started on doxycycline. Symptoms worsened and he presented to the [facility] ER earlier today. Admission was suggestion for IV antibiotics but patient declined due to other things he had going on in his life time. He was prescribed hydrocodone and given an injection of Rocephin. Symptoms have worsened tonight. The affected area includes to dusky areas with skin depression suggestive of spider bite. Patient is afebrile. He is in significant pain. He cannot take NSAID medications due to anticoagulation. Allergies and Home Medications Allergies Coded Allergies: No Known Drug Allergies (Verified , 03/01/19) Home Medications Alprazolam 1 Mg Tablet, 1 MG PO TID PRN for ANXIETY, (Reported) Apixaban 5 Mg Tablet, 5 MG PO BID, (Reported) Diltiazem HCl 120 Mg Cap.er.24h, 120 MG PO 0500, (Reported) Dronedarone HCl 400 Mg Tablet, 400 MG PO BID Prescribed by: NIC LÓPEZ on 10/14/182020 Levothyroxine Sodium 25 Mcg Tablet, 25 MCG PO DAILY, (Reported) Oxycodone HCl 5 Mg Tablet, 5 MG PO QID PRN for PAIN-SEVERE, (Reported) Oxycodone HCl/Acetaminophen 1 Each Tablet, 1 TAB PO Q6H PRN for BREAKTHROUGH PAIN Prescribed by: TERESA MENESES on 03/01/19 1214 Oxycodone HCl/Acetaminophen 1 Each Tablet, 1-2 TAB PO Q4H PRN for PAIN-MODERATE Prescribed by: MUNDO SCHAFFER on 03/01/19 4710 Patient Home Medication List Home Medication List Reviewed: Yes Review of Systems Review of Systems Constitutional: no symptoms reported EENTM: no symptoms reported Respiratory: no symptoms reported Cardiovascular: no symptoms reported Gastrointestinal: no symptoms reported Genitourinary: no symptoms reported Musculoskeletal: see HPI Skin: see HPI Psychiatric/Neurological: No Symptoms Reported Hematologic/Lymphatic: No Symptoms Reported Past Okioklt-Mdimzq-Mgilku Hx Past Med/Social Hx: Reviewed and Corrections made Patient Social History Alcohol Use: Denies Use Recreational Drug Use: No (DENIES ETOH OR TOBACCO USE) Smoking Status: Former Smoker Type Used: Cigarettes Former Smoker, Quit: Jul 12, 1985 2nd Hand Smoke Exposure: No Recent Foreign Travel: No Contact w/Someone Who Travel: No Recent Infectious Disease Expo: No Recent Hopitalizations: No Immunizations Up To Date Tetanus Booster (TDap): Unknown Date of Pneumonia Vaccine: Jul 21, 2018 Date of Influenza Vaccine: Jul 21, 2018 Seasonal Allergies Seasonal Allergies: No Past Medical History Surgeries: Yes (splenectomy, 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) Appendectomy Respiratory: Yes Pulmonary Embolism Cardiac: Yes (atrial flutter, portal vein thrombosis, CAD) Atrial Fibrillation, Deep Vein Thrombosis Neurological: Yes Headaches /Migraines Reproductive Disorders: No Sexually Transmitted Disease: Yes (Hep C: treated) HIV/AIDS: No Genitourinary: Yes (enlarged prostate) Prostate Problems Gastrointestinal: Yes Diverticulosis, Hemorrhoids Musculoskeletal: Yes (bulging disk lower back, laminectomy cervical fusion) Arthritis Endocrine: Yes Hypothyroidsim HEENT: No Loss of Vision: Denies Hearing Impairment: Denies Cancer: Yes (adenocarcinoma colon (polyp during colonoscopy)) Colon Did You Recieve Any Treatments: Yes What Type of Treatment Did You: Surgical Intervention Psychosocial: Yes Anxiety, Depression Integumentary: No Blood Disorders: No Adverse Reaction/Blood Tranf: No Family Medical History Heart Disease, Hypertension Physical Exam Vital Signs Vital Signs - First Documented 03/01/19 21:54 Temp 97.7 Pulse 98 Resp 16 B/P (MAP) 112/89 (97) Pulse Ox 94 O2 Delivery Room Air Capillary Refill : Less Than 3 Seconds Height, Weight, BMI Height: 6'0" Weight: 220lbs. 0oz. [id number]; 30.1 BMI Method:Actual General Appearance: WD/WN, Mild Distress HEENT: Normal ENT Inspection Neck: Normal Inspection Respiratory: Lungs Clear, Normal Breath Sounds, No Accessory Muscle Use, No Respiratory Distress Cardiovascular: Regular Rate, Rhythm, No Edema, No Murmur, Normal Peripheral Pulses (left radial pulse intact) Gastrointestinal: Non Tender, Soft Extremity: Other (there are well demarcated areas of redness extending from the medial left elbow up to the axilla. There are 2 dusky regions on the posterior aspect with subtle indentation. 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 as Tested Skin: Warm/Dry, Erythema, Other (see extremity exam above) Focused Exam Lactate Level 03/01/19 22:38: Lactic Acid Level 0.89 Lactic Acid Level Laboratory Tests Test 03/01/19 22:38 Lactic Acid Level 0.89 MMOL/L (0.50-2.00) Progress/Results/Core Measures Suspected Sepsis Recent Fever Within 48 Hours: No Infection Criteria Present: Documented Infection New/Unexplained Altered Menta: No Sepsis Screen: No Definite Risk SIRS Temperature:97.7 Pulse: 98 Respiratory Rate: 16 Laboratory Tests 03/01/19 22:38: White Blood Count 11.0 Blood Pressure 112 /89 Mean: 97 03/01/19 22:38: Lactic Acid Level 0.89 Laboratory Tests 03/01/19 22:38: Creatinine 1.45H, Platelet Count 453H, Total Bilirubin 0.3 Results/Orders Lab Results Laboratory Tests Test 03/01/19 22:38 Range/Units White Blood Count 11.0 4.3-11.0 10^3/uL Red Blood Count 5.35 4.35-5.85 10^6/uL Hemoglobin 15.0 13.3-17.7 G/DL Hematocrit 44 40-54 % Mean Corpuscular Volume 82 80-99 FL Mean Corpuscular Hemoglobin 28 25-34 PG Mean Corpuscular Hemoglobin Concent 34 32-36 G/DL Red Cell Distribution Width 15.2 H 10.0-14.5 % Platelet Count 453 H 130-400 10^3/uL Mean Platelet Volume 9.9 7.4-10.4 FL Neutrophils (%) (Auto) 60 42-75 % Lymphocytes (%) (Auto) 18 12-44 % Monocytes (%) (Auto) 17 H 0-12 % Eosinophils (%) (Auto) 5 0-10 % Basophils (%) (Auto) 1 0-10 % Neutrophils # (Auto) 6.6 1.8-7.8 X 10^3 Lymphocytes # (Auto) 2.0 1.0-4.0 X 10^3 Monocytes # (Auto) 1.8 H 0.0-1.0 X 10^3 Eosinophils # (Auto) 0.6 H 0.0-0.3 10^3/uL Basophils # (Auto) 0.1 0.0-0.1 10^3/uL Sodium Level 144 135-145 MMOL/L Potassium Level 4.1 3.6-5.0 MMOL/L Chloride Level 106 98-107 MMOL/L Carbon Dioxide Level 25 21-32 MMOL/L Anion Gap 13 5-14 MMOL/L Blood Urea Nitrogen 21 H 7-18 MG/DL Creatinine 1.45 H 0.60-1.30 MG/DL Estimat Glomerular Filtration Rate 50 BUN/Creatinine Ratio 14 Glucose Level 103 70-105 MG/DL Lactic Acid Level 0.89 0.50-2.00 MMOL/L Calcium Level 9.3 8.5-10.1 MG/DL Corrected Calcium 9.4 8.5-10.1 MG/DL Total Bilirubin 0.3 0.1-1.0 MG/DL Aspartate Amino Transf (AST/SGOT) 12 5-34 U/L Alanine Aminotransferase (ALT/SGPT) 14 0-55 U/L Alkaline Phosphatase 72 40-136 U/L C-Reactive Protein High Sensitivity 1.99 H 0.00-0.50 MG/DL Total Protein 6.5 6.4-8.2 GM/DL Albumin 3.9 3.2-4.5 GM/DL My Orders Orders - MUNDO JUAREZ MD Cbc With Automated Diff (03/01/19 22:29) Comprehensive Metabolic Panel (03/01/19 22:29) Hs C Reactive Protein (03/01/19 22:29) Blood Culture (03/01/19 22:29) Lactic Acid Analyzer (03/01/19 22:29) Vital Signs/I&O 03/01/19 03/01/19 21:54 23:30 Temp 97.7 97.5 Pulse 98 91 Resp 16 16 B/P (MAP) 112/89 (97) 116/79 (91) Pulse Ox 94 95 O2 Delivery Room Air Room Air Capillary Refill : Less Than 3 Seconds Blood Pressure Mean: 97 Progress Note : Progress Note Vital signs were unremarkable and labs did not indicate any suggestion of bacterial infection. Symptoms are likely due to spider bite. Patient was presc ribed Percocet for more potent pain management. He was advised to continue doxycycline. I've advised him to follow up with either Dr. Lou or the wound care clinic for monitoring of the area. Skin marker was used to outline the areas of erythema. Departure Impression Primary Impression: Spider bite wound Qualified Codes: T63.301D - Toxic effect of unspecified spider venom, accidental (unintentional), subsequent encounter Disposition: 01 HOME, SELF-CARE Condition: Stable Departure-Patient Inst. Decision time for Depature: 23:25 Referrals: [facility] Primary Care Physician NIKKI WILEY APRN (Family) Primary Care Physician IMMANUEL LOU MD, MICHAEL G MD Patient Instructions: Spider Bites Add. Discharge Instructions: Your symptoms are consistent with a spider bite. Complete the antibiotics previously prescribed to prevent secondary infection. Please follow-up with a surgeon such as Dr. Lou or the [facility]. Dr. LOU's information as below. The wound care clinic and contacted at [phone] or [phone]. Return to the ER if you have worsening symptoms. You may increase your hydrocodone previously prescribed up to 2 tablets every 4 hours as needed. You may also replace hydrocodone with Percocet prescription provided. May be beneficial to take an [id number] stool softener while you are on hydrocodone or Percocet to prevent constipation. All discharge instructions reviewed with patient and/or family. Voiced understanding. Scripts Oxycodone HCl/Acetaminophen (Percocet 5-325 mg Tablet) 1 Each Tablet 1-2 TAB PO Q4H PRN for PAIN-MODERATE MDD 6, #20 TAB Prov: MUNDO JUAREZ MD 03/01/19 Copy Copies To 1: SHERRON VIRGEN JOSHUA T MD Mar 01, 2019 23:28
[2019-03-01 23:30] VITALS: BP 116/79
== END 2019-03-01 23:36 | disposition home or self-care (01) ==
LOC: EDUNIT# 21:53 → ER 21:54
DX: T63.301D Toxic effect of unspecified spider venom, accidental (unintentional), subsequent encounter (principal); I48.91 Unspecified atrial fibrillation; I25.10 Atherosclerotic heart disease of native coronary artery without angina pectoris; I48.92 Unspecified atrial flutter; G43.909 Migraine, unspecified, not intractable, without status migrainosus; B19.20 Unspecified viral hepatitis C without hepatic coma; E03.9 Hypothyroidism, unspecified; F41.9 Anxiety disorder, unspecified; F32.9 Major depressive disorder, single episode, unspecified; Z86.010 Personal history of colon polyps; Z98.1 Arthrodesis status; Z87.19 Personal history of other diseases of the digestive system; Z87.448 Personal history of other diseases of urinary system; Z82.49 Family history of ischemic heart disease and other diseases of the circulatory system; Z79.01 Long term (current) use of anticoagulants; Z87.891 Personal history of nicotine dependence; Z90.49 Acquired absence of other specified parts of digestive tract; Z98.890 Other specified postprocedural states; Z90.81 Acquired absence of spleen; Z86.711 Personal history of pulmonary embolism; Z86.718 Personal history of other venous thrombosis and embolism
CPT/HCPCS: 36415; 80053; 83605; 85025; 86141; 87040

== ENCOUNTER 2019-03-09 16:31 | Emergency (ER) | payer MEDICAID ==
[~2019-03-09] VITALS: Ht 182.9 cm; Wt 99.8 kg
[~2019-03-09 16:31] MED LIST changes: +OXYC-199 PO
[2019-03-09] MEDS ORDERED: DILTIAZEM IV FOR DRIP 125 MG in NS (IVPB) 100 ML IV SCH (17:00)
[2019-03-09] MEDS ORDERED: DILTIAZEM 25 MG/5 ML INJ (CARDIZEM) VIAL IVP ONE (17:00)
[2019-03-09] MEDS ORDERED: NS IV 1000 ML 1,000 ML IV SCH (17:00)
--- NOTE | 2019-03-09 17:10 | ED Chest Pain ---
General Chief Complaint: Cardiac/General Problems Stated Complaint: HIGH HEART RATE Source: patient Exam Limitations: no limitations History of Present Illness Date Seen by Provider: Mar 09, 2019 Time Seen by Provider: 16:55 Initial Comments Patient is a 58-year-old male with history of atrial tachycardia arrhythmia currently anticoagulated on Eliquis who presents with palpitations abrupt onset starting 5 hours prior to the arrival. Patient denies exerting himself time symptoms began. Palpitations are continuous described as fast and pounding. Patient also reports dizziness, headache, mild dyspnea and anxiety. Ports chest tightness but denies chest pain. No recent illnesses. No other acute symptoms or complaints. Patient states he was hospitalized in the ICU at [facility] for this same arrhythmia. His shore hand dredge or barge is Dr. Choco Anderson. Patient states he is not on antiarrhythmics or suppressive medications. Does have a history of hypothyroidism and is compliant with his thyroxine. No history of CAD. Timing/Duration: 4-6 hours Severity/Quality: moderate Location: substernal Radiation: no radiation Activities at Onset: none Prior CP/Workup: echocardiography Associated Symptoms: dizziness, shortness of breath, weakness Allergies and Home Medications Allergies Coded Allergies: No Known Drug Allergies (Verified , 03/01/19) Home Medications Alprazolam 1 Mg Tablet, 1 MG PO TID PRN for ANXIETY, (Reported) Apixaban 5 Mg Tablet, 5 MG PO BID, (Reported) Diltiazem HCl 120 Mg Cap.er.24h, 120 MG PO 0500, (Reported) Dronedarone HCl 400 Mg Tablet, 400 MG PO BID Prescribed by: NIC LÓPEZ on 10/14/182020 Levothyroxine Sodium 25 Mcg Tablet, 25 MCG PO DAILY, (Reported) Oxycodone HCl 5 Mg Tablet, 5 MG PO QID PRN for PAIN-SEVERE, (Reported) Oxycodone HCl/Acetaminophen 1 Each Tablet, 1 TAB PO Q6H PRN for BREAKTHROUGH PAIN Prescribed by: TERESA MENESES on 03/01/19 1214 Oxycodone HCl/Acetaminophen 1 Each Tablet, 1-2 TAB PO Q4H PRN for PAIN-MODERATE Prescribed by: MUNDO SCHAFFER on 03/01/19 7671 Patient Home Medication List Home Medication List Reviewed: Yes Review of Systems Review of Systems Constitutional: see HPI EENTM: See HPI Respiratory: See HPI Cardiovascular: See HPI Gastrointestinal: See HPI Genitourinary: See HPI Musculoskeletal: see HPI Skin: see HPI Psychiatric/Neurological: See HPI Endocrine: See HPI Hematologic/Lymphatic: See HPI Past Wvjlvkr-Odppan-Obqsah Hx Past Med/Social Hx: Reviewed Nursing Past Med/Soc Hx Patient Social History Type Used: Cigarettes Former Smoker, Quit: Jul 12, 1985 2nd Hand Smoke Exposure: No Recent Foreign Travel: No Contact w/Someone Who Travel: No Recent Hopitalizations: No Immunizations Up To Date Tetanus Booster (TDap): Unknown Date of Pneumonia Vaccine: Jul 21, 2018 Date of Influenza Vaccine: Jul 21, 2018 Seasonal Allergies Seasonal Allergies: No Past Medical History Surgeries: Yes (splenectomy, 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) Appendectomy Respiratory: Yes Pulmonary Embolism Cardiac: Yes (atrial flutter, portal vein thrombosis, CAD) Atrial Fibrillation, Deep Vein Thrombosis Neurological: Yes Headaches /Migraines Reproductive Disorders: No Sexually Transmitted Disease: Yes (Hep C: treated) HIV/AIDS: No Genitourinary: Yes (enlarged prostate) Prostate Problems Gastrointestinal: Yes Diverticulosis, Hemorrhoids Musculoskeletal: Yes (bulging disk lower back, laminectomy cervical fusion) Arthritis Endocrine: Yes Hypothyroidsim HEENT: No Loss of Vision: Denies Hearing Impairment: Denies Cancer: Yes (adenocarcinoma colon (polyp during colonoscopy)) Colon Did You Recieve Any Treatments: Yes What Type of Treatment Did You: Surgical Intervention Psychosocial: Yes Anxiety, Depression Integumentary: No Blood Disorders: No Adverse Reaction/Blood Tranf: No Family Medical History Heart Disease, Hypertension Physical Exam Vital Signs Vital Signs - First Documented 03/09/19 16:40 Temp 98.6 Pulse 152 Resp 18 B/P (MAP) 110/92 (98) Pulse Ox 95 O2 Delivery Room Air Capillary Refill : Height, Weight, BMI Height: 6'0" Weight: 220lbs. 0oz. 99.382648ew; 30.1 BMI Method:Actual General Appearance: No Apparent Distress, WD/WN, Anxious HEENT: PERRL/EOMI, TMs Normal Neck: Full Range of Motion, Normal Inspection Respiratory: Chest Non Tender, Lungs Clear, Normal Breath Sounds Cardiovascular: No Edema, Tachycardia Gastrointestinal: Normal Bowel Sounds Extremity: Normal Capillary Refill, Normal Inspection Neurologic/Psychiatric: Alert, Oriented x3 Skin: Normal Color Progress/Results/Core Measures Results/Orders Lab Results Laboratory Tests Test 03/09/19 16:55 Range/Units White Blood Count 9.6 4.3-11.0 10^3/uL Red Blood Count 5.49 4.35-5.85 10^6/uL Hemoglobin 15.3 13.3-17.7 G/DL Hematocrit 45 40-54 % Mean Corpuscular Volume 81 80-99 FL Mean Corpuscular Hemoglobin 28 25-34 PG Mean Corpuscular Hemoglobin Concent 34 32-36 G/DL Red Cell Distribution Width 15.3 H 10.0-14.5 % Platelet Count 494 H 130-400 10^3/uL Mean Platelet Volume 9.2 7.4-10.4 FL Neutrophils (%) (Auto) 49 42-75 % Lymphocytes (%) (Auto) 31 12-44 % Monocytes (%) (Auto) 16 H 0-12 % Eosinophils (%) (Auto) 4 0-10 % Basophils (%) (Auto) 0 0-10 % Neutrophils # (Auto) 4.7 1.8-7.8 X 10^3 Lymphocytes # (Auto) 3.0 1.0-4.0 X 10^3 Monocytes # (Auto) 1.5 H 0.0-1.0 X 10^3 Eosinophils # (Auto) 0.4 H 0.0-0.3 10^3/uL Basophils # (Auto) 0.0 0.0-0.1 10^3/uL Sodium Level 141 135-145 MMOL/L Potassium Level 3.8 3.6-5.0 MMOL/L Chloride Level 102 98-107 MMOL/L Carbon Dioxide Level 26 21-32 MMOL/L Anion Gap 13 5-14 MMOL/L Blood Urea Nitrogen 16 7-18 MG/DL Creatinine 1.25 0.60-1.30 MG/DL Estimat Glomerular Filtration Rate 59 BUN/Creatinine Ratio 13 Glucose Level 107 H 70-105 MG/DL Calcium Level 9.1 8.5-10.1 MG/DL Corrected Calcium 9.3 8.5-10.1 MG/DL Total Bilirubin 0.2 0.1-1.0 MG/DL Aspartate Amino Transf (AST/SGOT) 14 5-34 U/L Alanine Aminotransferase (ALT/SGPT) 12 0-55 U/L Alkaline Phosphatase 71 40-136 U/L Troponin T 24 H <=15 NG/L Total Protein 6.7 6.4-8.2 GM/DL Albumin 3.7 3.2-4.5 GM/DL My Orders Orders - POSTNELLY DO Cbc With Automated Diff (03/09/19 16:59) Comprehensive Metabolic Panel (03/09/19 16:59) Protime With Inr (03/09/19 16:59) Chest 1 View Ap/Pa Only (03/09/19 16:59) Troponin T (03/09/19 16:59) Probnp Fs (03/09/19 16:59) Diltiazem Injection (Cardizem Injection) (03/09/19 17:00) Ns (Ivpb) (Sodium C... W/Diltiazem Iv Fo (03/09/19 17:00) Ns Iv 1000 Ml (Sodium Chloride 0.9%) (03/09/19 17:00) Thyroid Stimulating Hormone (03/09/19 16:55) Alprazolam Tablet (Xanax Tablet) (03/09/19 18:00) Medications Given in ED Current Medications Medications Dose Ordered Sig/Janet Route Start Time Stop Time Status Last Admin Dose Admin Alprazolam 0.5 mg PC ONCE PO 03/09/19 18:00 03/09/19 18:01 03/09/19 17:23 0.5 MG Diltiazem HCl 20 mg ONCE ONCE IVP 03/09/19 17:00 03/09/19 17:02 DC 03/09/19 17:13 20 MG Vital Signs/I&O 03/09/19 03/09/19 16:40 17:20 Temp 98.6 Pulse 152 Resp 18 B/P (MAP) 110/92 (98) 109/84 Pulse Ox 95 O2 Delivery Room Air Initial ECG Impression Date: Mar 09, 2019 Initial ECG Impression Time: 16:49 Initial ECG Rhythm: A Fib/Flutter Initial ECG Impression: Nonspecific Changes, Atrial Fibrillation w/RVR Departure Communication (Admissions) Atrial tachyarrhythmia with stable blood pressure. Denies chest pain. Cardizem bolus, drip and IV fluids given. Patient remains in atrial flutter with ventricular rate in the 140s. Discussed with patient option of doing an elective cardioversion in the emergency department. Patient declined procedure and request transfer to [facility] Dr. Craven accepts patient to [facility]. Patient stable at time of dictation. Impression Primary Impression: Atrial flutter Disposition: 02 XFER SHT-TRM HOSP Condition: Stable Transfer Time Spoke to Accepting Phy: 17:[address] Arreola Method of Transfer: EMS Departure-Patient Inst. Referrals: [facility] [place] (PCP) Primary Care Physician NIKKI WILEY APRN (Family) Primary Care Physician NELLY POST DO Mar 09, 2019 17:10
[2019-03-09 17:20] LABS: BASOPHILS % (AUTO) 0 % (0-10); EOSINOPHILS # (AUTO) 0.4 10^3/uL (0.0-0.3); EOSINOPHILS % (AUTO) 4 % (0-10); HEMATOCRIT 45 % (40-54); HEMOGLOBIN 15.3 G/DL (13.3-17.7); LYMPHOCYTES % (AUTO) 31 % (12-44); MEAN CORPUSCULAR HEMOGLOBIN 28 PG (25-34); MEAN CORPUSCULAR HGB CONC 34 G/DL (32-36); MEAN CORPUSCULAR VOLUME 81 FL (80-99); MEAN PLATELET VOLUME 9.2 FL (7.4-10.4); MONOCYTES # (AUTO) 1.5 X 10^3 (0.0-1.0); MONOCYTES % (AUTO) 16 % (0-12); NEUTROPHILS # (AUTO) 4.7 X 10^3 (1.8-7.8); NEUTROPHILS % (AUTO) 49 % (42-75); PLATELET COUNT 494 10^3/uL (130-400); RED CELL DISTRIBUTION WIDTH 15.3 % (10.0-14.5); WHITE BLOOD COUNT 9.6 10^3/uL (4.3-11.0)
[2019-03-09 17:38] LABS: ALBUMIN 3.7 GM/DL (3.2-4.5); BILIRUBIN,TOTAL 0.2 MG/DL (0.1-1.0); CALCIUM 9.1 MG/DL (8.5-10.1); CREATININE SERUM 1.25 MG/DL (0.60-1.30); POTASSIUM 3.8 MMOL/L (3.6-5.0); TOTAL PROTEIN 6.7 GM/DL (6.4-8.2)
[2019-03-09 17:47] LABS: INR 0.9 (0.8-1.4); PROTHROMBIN TIME PATIENT 12.9 SEC (12.2-14.7)
--- NOTE | 2019-03-09 17:49 | Diagnostic Imaging Report ---
INDICATION: Tachycardia. EXAMINATION: Portable chest at 5:37 p.m. FINDINGS: Heart size and pulmonary vascularity are normal. Lungs are clear. There are no effusions or pneumothoraces. IMPRESSION: Negative chest. Dictated by: Dictated on workstation # [id number]
--- NOTE | 2019-03-09 17:59 | NUR ---
Received call from [facility] transfer line. Patient is going to room 3105. Report is to be called to Juan Jose at [phone]
[2019-03-09] MEDS ORDERED: FUROSEMIDE 40 MG/4 ML INJ (LASIX) IVP ONE (18:00)
[2019-03-09] MEDS ORDERED: ALPRAZolam 0.5 MG (XANAX) TAB PO ONE (18:00)
[2019-03-09 18:08] VITALS: BP 132/90
[2019-03-09] MEDS ORDERED: ACETAMINOPHEN 500 MG TAB (TYLENOL) PO ONE (18:30)
--- NOTE | 2019-03-09 18:32 | NUR ---
Report was given to ROSA Benavides at this time. Cardiazem was continued en route to [facility]. Care was transferred.
[2019-03-09] MEDS ORDERED: ACETAMINOPHEN 500 MG TAB (TYLENOL) ONE (18:33)
--- NOTE | 2019-03-09 18:40 | NUR ---
Pt left the facility at this time.
== END 2019-03-09 18:40 | disposition short-term general hospital (02) ==
LOC: EDUNIT# 16:31 → ER FS 16:33
DX: I48.92 Unspecified atrial flutter (principal); F41.9 Anxiety disorder, unspecified; I25.10 Atherosclerotic heart disease of native coronary artery without angina pectoris; I48.91 Unspecified atrial fibrillation; G43.909 Migraine, unspecified, not intractable, without status migrainosus; E03.9 Hypothyroidism, unspecified; F32.9 Major depressive disorder, single episode, unspecified; Z85.00 Personal history of malignant neoplasm of unspecified digestive organ; Z86.010 Personal history of colon polyps; Z87.19 Personal history of other diseases of the digestive system; Z79.01 Long term (current) use of anticoagulants; Z87.891 Personal history of nicotine dependence; Z90.49 Acquired absence of other specified parts of digestive tract; Z86.711 Personal history of pulmonary embolism; Z86.718 Personal history of other venous thrombosis and embolism; Z82.49 Family history of ischemic heart disease and other diseases of the circulatory system
CPT/HCPCS: 36415; 71045; 80053; 83880; 84443; 84484; 85025; 85610; 93005; 93041

== ENCOUNTER 2019-04-10 20:05 | Emergency (ER) | payer MEDICAID ==
[~2019-04-10] VITALS: Ht 182.9 cm; Wt 101.6 kg
--- NOTE | 2019-04-10 20:24 | ED Chest Pain ---
General Chief Complaint: Chest Pain Stated Complaint: FEELS WEAK, CHEST PAIN, SOB Source: patient, RN notes reviewed, old records Exam Limitations: no limitations History of Present Illness Date Seen by Provider: Apr 10, 2019 Time Seen by Provider: 20:18 Initial Comments Patient presents c/ c/o chest pain, weakness, and dyspnea since yesterday. No known fever. No reported N/V, or diaphoresis. Timing/Duration: intermittent, 1 day Severity/Quality: moderate (7/10), sharp Location: substernal Radiation: no radiation Activities at Onset: none Prior CP/Workup: cardiac cath, echocardiography, heart attack, pulmonary embolism ASA po TWISTER FRAME TENDER: No NTG SL TWISTER FRAME TENDER: No Allergies and Home Medications Allergies Coded Allergies: No Known Drug Allergies (Verified , 03/01/19) Home Medications Alprazolam 1 Mg Tablet, 1 MG PO TID PRN for ANXIETY, (Reported) Apixaban 5 Mg Tablet, 5 MG PO BID, (Reported) Diltiazem HCl 120 Mg Cap.er.24h, 120 MG PO 0500, (Reported) Dronedarone HCl 400 Mg Tablet, 400 MG PO BID Prescribed by: NIC LÓPEZ on 10/14/182020 Levothyroxine Sodium 25 Mcg Tablet, 25 MCG PO DAILY, (Reported) Oxycodone HCl 5 Mg Tablet, 5 MG PO QID PRN for PAIN-SEVERE, (Reported) Oxycodone HCl/Acetaminophen 1 Each Tablet, 1 TAB PO Q6H PRN for BREAKTHROUGH PAIN Prescribed by: TERESA MENESES on 03/01/19 1214 Oxycodone HCl/Acetaminophen 1 Each Tablet, 1-2 TAB PO Q4H PRN for PAIN-MODERATE Prescribed by: MUNDO SCHAFFER on 03/01/19 2328 Patient Home Medication List Home Medication List Reviewed: Yes Review of Systems Review of Systems Constitutional: see HPI, weakness Respiratory: See HPI, Shortness of Air Cardiovascular: Chest Pain All Other Systems Reviewed Negative Unless Noted: Yes (Negative excepted noted.) Past Jhvrqjj-Lxiuda-Gjckkk Hx Patient Social History Type Used: Cigarettes Former Smoker, Quit: Jul 12, 1985 2nd Hand Smoke Exposure: No Recent Foreign Travel: No Contact w/Someone Who Travel: No Recent Hopitalizations: No Immunizations Up To Date Tetanus Booster (TDap): Unknown Date of Pneumonia Vaccine: Jul 21, 2018 Date of Influenza Vaccine: Jul 21, 2018 Seasonal Allergies Seasonal Allergies: No Past Medical History Surgeries: Yes (splenectomy, 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) Appendectomy Respiratory: Yes Pulmonary Embolism Cardiac: Yes (atrial flutter, portal vein thrombosis, CAD) Atrial Fibrillation, Deep Vein Thrombosis Neurological: Yes Headaches /Migraines Reproductive Disorders: No Sexually Transmitted Disease: Yes (Hep C: treated) HIV/AIDS: No Genitourinary: Yes (enlarged prostate) Prostate Problems Gastrointestinal: Yes Diverticulosis, Hemorrhoids Musculoskeletal: Yes (bulging disk lower back, laminectomy cervical fusion) Arthritis Endocrine: Yes Hypothyroidsim HEENT: No Loss of Vision: Denies Hearing Impairment: Denies Cancer: Yes (adenocarcinoma colon (polyp during colonoscopy)) Colon Did You Recieve Any Treatments: Yes What Type of Treatment Did You: Surgical Intervention Psychosocial: Yes Anxiety, Depression Integumentary: No Blood Disorders: No Adverse Reaction/Blood Tranf: No Family Medical History Heart Disease, Hypertension Physical Exam Vital Signs Vital Signs - First Documented 04/10/19 20:25 Temp 98.5 Pulse 100 Resp 24 B/P (MAP) 155/93 (113) Pulse Ox 96 O2 Delivery Room Air Capillary Refill : Height, Weight, BMI Height: 6'0" Weight: 220lbs. 0oz. 99.110397ms; 30.1 BMI Method:Stated General Appearance: No Apparent Distress, WD/WN Respiratory: No Respiratory Distress Cardiovascular: Regular Rate, Rhythm, Other ((+) ACW tenderness c/ palpation) Rectal: Deferred Neurologic/Psychiatric: Alert, Oriented x3, No Motor/Sensory Deficits, Depressed Affect Skin: Warm/Dry Progress/Results/Core Measures Results/Orders Lab Results Laboratory Tests Test 04/10/19 20:12 04/10/19 20:21 Range/Units White Blood Count 10.1 4.3-11.0 10^3/uL Red Blood Count 5.60 4.35-5.85 10^6/uL Hemoglobin 15.4 13.3-17.7 G/DL Hematocrit 46 40-54 % Mean Corpuscular Volume 83 80-99 FL Mean Corpuscular Hemoglobin 28 25-34 PG Mean Corpuscular Hemoglobin Concent 33 32-36 G/DL Red Cell Distribution Width 15.0 H 10.0-14.5 % Platelet Count 490 H 130-400 10^3/uL Mean Platelet Volume 9.4 7.4-10.4 FL Neutrophils (%) (Auto) 56 42-75 % Lymphocytes (%) (Auto) 26 12-44 % Monocytes (%) (Auto) 13 H 0-12 % Eosinophils (%) (Auto) 4 0-10 % Basophils (%) (Auto) 1 0-10 % Neutrophils # (Auto) 5.7 1.8-7.8 X 10^3 Lymphocytes # (Auto) 2.6 1.0-4.0 X 10^3 Monocytes # (Auto) 1.3 H 0.0-1.0 X 10^3 Eosinophils # (Auto) 0.4 H 0.0-0.3 10^3/uL Basophils # (Auto) 0.1 0.0-0.1 10^3/uL Sodium Level 139 135-145 MMOL/L Potassium Level 4.2 3.6-5.0 MMOL/L Chloride Level 100 98-107 MMOL/L Carbon Dioxide Level 26 21-32 MMOL/L Anion Gap 13 5-14 MMOL/L Blood Urea Nitrogen 15 7-18 MG/DL Creatinine 1.30 0.60-1.30 MG/DL Estimat Glomerular Filtration Rate 56 BUN/Creatinine Ratio 12 Glucose Level 127 H 70-105 MG/DL Calcium Level 9.4 8.5-10.1 MG/DL Corrected Calcium 9.3 8.5-10.1 MG/DL Magnesium Level 2.3 1.8-2.4 MG/DL Total Bilirubin 0.4 0.1-1.0 MG/DL Aspartate Amino Transf (AST/SGOT) 23 5-34 U/L Alanine Aminotransferase (ALT/SGPT) 18 0-55 U/L Alkaline Phosphatase 79 40-136 U/L Troponin I < 0.30 <0.30 NG/ML Pro-B-Type Natriuretic Peptide 545.3 H <75.0 PG/ML Total Protein 7.3 6.4-8.2 GM/DL Albumin 4.1 3.2-4.5 GM/DL D-Dimer 0.44 0.00-0.49 UG/ML My Orders Orders - JOSE TAVERAS DO Cbc With Automated Diff (04/10/19 20:17) Comprehensive Metabolic Panel (04/10/19 20:17) Troponin I (7/22/19 20:17) Magnesium (04/10/19 20:17) Probnp Fs (04/10/19 20:20) Ekg Tracing (04/10/19 20:23) Chest Pa/Lat (2 View) (04/10/19 20:23) Fibrin Degradation Products (04/10/19 21:23) Orthostatic Vital Signs (Adult (04/10/19 21:47) Vital Signs/I&O 04/10/19 20:25 Temp 98.5 Pulse 100 Resp 24 B/P (MAP) 155/93 (113) Pulse Ox 96 O2 Delivery Room Air Progress Progress Note : Progress Note Patient refused any IV Toradol, or Decadron. States he is fine and ready to go. Initial ECG Impression Date: Apr 10, 2019 Initial ECG Impression Time: 20:19 Initial ECG Rate: 97 Initial ECG Rhythm: Normal Sinus Initial ECG Impression: Nonspecific Changes Initial ECG Comparisson: No Previous ECG Available Diagnostic Imaging Diagonstic Imaging: Xray Plain Films/CT/US/NM/MRI: chest (nothing acute) Departure Impression Primary Impression: Chest wall pain Disposition: 01 HOME, SELF-CARE Condition: Stable Departure-Patient Inst. Decision time for Depature: 21:55 Referrals: [facility] [place] (PCP) Primary Care Physician NIKKI WILEY APRN (Family) Primary Care Physician Patient Instructions: Chest Pain That Is Not Caused by the Heart (DC) Add. Discharge Instructions: RECOMMEND 400-600 mg OF IBUPROFEN EVERY 6 HOURS NEEDED FOR YOUR CHEST PAIN. RETURN IF IT RETURNS, OR WORSENS. All discharge instructions reviewed with patient and/or family. Voiced understanding. JOSE TAVERAS DO Apr 10, 2019 20:24
[2019-04-10 20:29] LABS: HEMATOCRIT 46 % (40-54); HEMOGLOBIN 15.4 G/DL (13.3-17.7); LYMPHOCYTES % (AUTO) 26 % (12-44); MEAN CORPUSCULAR HEMOGLOBIN 28 PG (25-34); MEAN CORPUSCULAR HGB CONC 33 G/DL (32-36); MEAN CORPUSCULAR VOLUME 83 FL (80-99); MEAN PLATELET VOLUME 9.4 FL (7.4-10.4); NEUTROPHILS % (AUTO) 56 % (42-75); PLATELET COUNT 490 10^3/uL (130-400); WHITE BLOOD COUNT 10.1 10^3/uL (4.3-11.0)
[2019-04-10 20:30] LABS: BASOPHILS # (AUTO) 0.1 10^3/uL (0.0-0.1); BASOPHILS % (AUTO) 1 % (0-10); EOSINOPHILS # (AUTO) 0.4 10^3/uL (0.0-0.3); EOSINOPHILS % (AUTO) 4 % (0-10); LYMPHOCYTES # (AUTO) 2.6 X 10^3 (1.0-4.0); MONOCYTES # (AUTO) 1.3 X 10^3 (0.0-1.0); MONOCYTES % (AUTO) 13 % (0-12); NEUTROPHILS # (AUTO) 5.7 X 10^3 (1.8-7.8)
--- NOTE | 2019-04-10 20:47 | Diagnostic Imaging Report ---
Examination: Chest, frontal and lateral views Indication: Chest pain and shortness of breath. Comparison: Multiple priors, most recent performed on 03/09/2019. Findings: There is mild bibasilar atelectasis. The lungs are otherwise clear and the pulmonary vasculature is normal. No pneumothorax or pleural effusion. The cardiomediastinal silhouette is unchanged. No acute osseous abnormality is identified. Surgical clips are demonstrated in the left upper abdominal quadrant. Impression: Mild bibasilar atelectasis, otherwise no radiographic evidence of acute chest disease. Dictated by: Dictated on workstation # [id number]
[2019-04-10 21:14] LABS: BUN/CREATININE RATIO 12; CARBON DIOXIDE 26 MMOL/L (21-32); CHLORIDE 100 MMOL/L (98-107); GFR ESTIMATED 56; POTASSIUM 4.2 MMOL/L (3.6-5.0); SODIUM 139 MMOL/L (135-145)
[2019-04-10 21:15] LABS: ALANINE AMINOTRANSFERASE 18 U/L (0-55); ALBUMIN 4.1 GM/DL (3.2-4.5); ALKALINE PHOSPHATASE 79 U/L (40-136); BILIRUBIN,TOTAL 0.4 MG/DL (0.1-1.0); CALCIUM 9.4 MG/DL (8.5-10.1); GLUCOSE 127 MG/DL (70-105); MAGNESIUM 2.3 MG/DL (1.8-2.4); TOTAL PROTEIN 7.3 GM/DL (6.4-8.2)
[2019-04-10 22:00] VITALS: BP 116/80
== END 2019-04-10 21:58 | disposition home or self-care (01) ==
LOC: EDUNIT# 20:05 → ER FS 20:06
DX: R07.89 Other chest pain (principal); I25.2 Old myocardial infarction; I48.92 Unspecified atrial flutter; I25.10 Atherosclerotic heart disease of native coronary artery without angina pectoris; I48.91 Unspecified atrial fibrillation; G43.909 Migraine, unspecified, not intractable, without status migrainosus; B19.20 Unspecified viral hepatitis C without hepatic coma; E03.9 Hypothyroidism, unspecified; F41.9 Anxiety disorder, unspecified; F32.9 Major depressive disorder, single episode, unspecified; Z86.711 Personal history of pulmonary embolism; Z86.718 Personal history of other venous thrombosis and embolism; Z95.9 Presence of cardiac and vascular implant and graft, unspecified; Z77.22 Contact with and (suspected) exposure to environmental tobacco smoke (acute) (chronic); Z90.49 Acquired absence of other specified parts of digestive tract; Z87.19 Personal history of other diseases of the digestive system; Z98.2 Presence of cerebrospinal fluid drainage device; Z98.1 Arthrodesis status; Z82.49 Family history of ischemic heart disease and other diseases of the circulatory system
CPT/HCPCS: 36415; 71046; 80053; 83735; 83880; 84484; 85025; 85379; 93005

== ENCOUNTER 2019-05-29 13:29 | Emergency (ER) | payer MEDICAID ==
[~2019-05-29] VITALS: Ht 182 cm; Wt 101.8 kg
[~2019-05-29 13:29] MED LIST changes: -DULO60CA58 PO; +DULO60CA59 PO
--- NOTE | 2019-05-29 14:08 | Diagnostic Imaging Report ---
INDICATION: Chest pain. COMPARISON: 04/10/2019. FINDINGS: Single frontal radiographic view of the chest was obtained and demonstrates normal cardiac silhouette and pulmonary vasculature. Lungs show small bilateral pleural effusions seen laterally; possibly loculated. There are also patchy and confluent alveolar opacities within the bilateral mid and lower lung steele. No pneumothorax is seen on either side. Osseous structures show no gross acute abnormalities. IMPRESSION: 1. Probable small loculated bilateral pleural effusions with associated atelectasis and/or infiltrate within both lower lungs. Dictated by: Dictated on workstation # [id number]
[2019-05-29 14:13] LABS: HEMATOCRIT 41 % (40-54); HEMOGLOBIN 13.8 G/DL (13.3-17.7); MEAN CORPUSCULAR HEMOGLOBIN 28 PG (25-34); MEAN CORPUSCULAR HGB CONC 33 G/DL (32-36); MEAN CORPUSCULAR VOLUME 83 FL (80-99); RED CELL DISTRIBUTION WIDTH 15.4 % (10.0-14.5); WHITE BLOOD COUNT 7.3 10^3/uL (4.3-11.0)
[2019-05-29 14:14] LABS: BASOPHILS # (AUTO) 0.1 10^3/uL (0.0-0.1); BASOPHILS % (AUTO) 1 % (0-10); EOSINOPHILS # (AUTO) 0.2 10^3/uL (0.0-0.3); EOSINOPHILS % (AUTO) 3 % (0-10); LYMPHOCYTES # (AUTO) 1.3 X 10^3 (1.0-4.0); LYMPHOCYTES % (AUTO) 18 % (12-44); MEAN PLATELET VOLUME 9.7 FL (7.4-10.4); MONOCYTES # (AUTO) 0.9 X 10^3 (0.0-1.0); MONOCYTES % (AUTO) 12 % (0-12); NEUTROPHILS # (AUTO) 4.7 X 10^3 (1.8-7.8); NEUTROPHILS % (AUTO) 64 % (42-75); PLATELET COUNT 518 10^3/uL (130-400)
[2019-05-29 14:51] LABS: ALANINE AMINOTRANSFERASE 14 U/L (0-55); ALKALINE PHOSPHATASE 73 U/L (40-136); BILIRUBIN,TOTAL 0.3 MG/DL (0.1-1.0); BUN/CREATININE RATIO 11; CALCIUM 9.5 MG/DL (8.5-10.1); CARBON DIOXIDE 26 MMOL/L (21-32); CHLORIDE 102 MMOL/L (98-107); CREATININE SERUM 1.14 MG/DL (0.60-1.30); GFR ESTIMATED > 60; GLUCOSE 111 MG/DL (70-105); SODIUM 141 MMOL/L (135-145)
[2019-05-29 14:53] LABS: ALBUMIN 3.8 GM/DL (3.2-4.5); TOTAL PROTEIN 6.9 GM/DL (6.4-8.2)
[2019-05-29] MEDS ORDERED: FUROSEMIDE 20 MG (LASIX) TAB ONE ×2 (15:20→15:21)
--- NOTE | 2019-05-29 15:20 | ED Cardiac General ---
History of Present Illness General Chief Complaint: Chest Pain Stated Complaint: CHEST PAIN Nursing Triage Note: CHEST PAIN SINCE LAST WEDNESDAY, SORE THROAT, AND HEADACHE. COMPLAINS OF PAIN WHEN HE BURPS. Source: patient Exam Limitations: no limitations History of Present Illness Date Seen by Provider: May 29, 2019 Time Seen by Provider: 14:00 Initial Comments Patient is a 58-year-old male who presents with chest pain worse with deep breathing, nausea, cough and sore throat 4 days. Patient is 5 days status post cardiac ablation for treatment of A. fib. Patient denies palpitations, exertional dyspnea chest pain. No fever chills, vomiting. No other acute symptoms or complaints.Patient was treated at [facility] for the identical symptoms who presents today 3 days ago. Patient states he was treated for pneumonia and started on antibiotics and was compared live with the antibiotics. Continues to take ibuprofen for pain states overall he just doesn't feel very well. Patient was contacted by his cardiology team this morning and instructed to return to for further evaluation, but prefers to be evaluated in the ED. 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 ASA po LITHOGRAPHERS PRINTER: No Allergies and Home Medications Allergies Coded Allergies: No Known Drug Allergies (Verified , 03/01/19) Home Medications Alprazolam 1 Mg Tablet, 1 MG PO TID PRN for ANXIETY, (Reported) Apixaban 5 Mg Tablet, 5 MG PO BID, (Reported) Diltiazem HCl 120 Mg Cap.er.24h, 120 MG PO 0500, (Reported) Dronedarone HCl 400 Mg Tablet, 400 MG PO BID Prescribed by: NIC LÓPEZ on 10/14/182020 Levothyroxine Sodium 25 Mcg Tablet, 25 MCG PO DAILY, (Reported) Oxycodone HCl 5 Mg Tablet, 5 MG PO QID PRN for PAIN-SEVERE, (Reported) Oxycodone HCl/Acetaminophen 1 Each Tablet, 1 TAB PO Q6H PRN for BREAKTHROUGH PAIN Prescribed by: TERESA MENESES on 03/01/19 1214 Oxycodone HCl/Acetaminophen 1 Each Tablet, 1-2 TAB PO Q4H PRN for PAIN-MODERATE Prescribed by: MUNDO SCHAFFER on 03/01/19 8678 Patient Home Medication List Home Medication List Reviewed: Yes Review of Systems Review of Systems Constitutional: see HPI EENTM: See HPI Respiratory: See HPI Cardiovascular: See HPI Genitourinary: See HPI Musculoskeletal: see HPI Skin: see HPI Psychiatric/Neurological: See HPI Endocrine: See HPI Past Ycaucpi-Lhjnme-Wqdjqk Hx Past Med/Social Hx: Reviewed Nursing Past Med/Soc Hx Patient Social History Alcohol Use: Denies Use Recreational Drug Use: No (DENIES ETOH OR TOBACCO USE) Type Used: Cigarettes Former Smoker, Quit: Jul 12, 1985 2nd Hand Smoke Exposure: No Recent Foreign Travel: No Contact w/Someone Who Travel: No Recent Infectious Disease Expo: No Recent Hopitalizations: No Immunizations Up To Date Tetanus Booster (TDap): Unknown Date of Pneumonia Vaccine: Jul 21, 2018 Date of Influenza Vaccine: Jul 21, 2018 Seasonal Allergies Seasonal Allergies: No Past Medical History Surgeries: Yes (splenectomy, 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) Appendectomy Respiratory: Yes Pulmonary Embolism Cardiac: Yes (atrial flutter, portal vein thrombosis, CAD) Atrial Fibrillation, Deep Vein Thrombosis Neurological: Yes Headaches /Migraines Reproductive Disorders: No Sexually Transmitted Disease: Yes (Hep C: treated) HIV/AIDS: No Genitourinary: Yes (enlarged prostate) Prostate Problems Gastrointestinal: Yes Diverticulosis, Hemorrhoids Musculoskeletal: Yes (bulging disk lower back, laminectomy cervical fusion) Arthritis Endocrine: Yes Hypothyroidsim HEENT: No Loss of Vision: Denies Hearing Impairment: Denies Cancer: Yes (adenocarcinoma colon (polyp during colonoscopy)) Colon Did You Recieve Any Treatments: Yes What Type of Treatment Did You: Surgical Intervention Psychosocial: Yes Anxiety, Depression Integumentary: No Blood Disorders: No Adverse Reaction/Blood Tranf: No Family Medical History Heart Disease, Hypertension Physical Exam Vital Signs Vital Signs - First Documented 05/29/19 14:11 Temp 36.1 Pulse 80 Resp 15 B/P (MAP) 150/101 Pulse Ox 97 O2 Delivery Room Air Capillary Refill : Less Than 3 Seconds Height, Weight, BMI Height: 6'0" Weight: 224lbs. 0oz. [id number]; 30.00 BMI Method:Stated General Appearance: WD/WN, Anxious HEENT: PERRL/EOMI, Normal ENT Inspection, Other (pharyngeal erythema) Neck: Full Range of Motion, Non Tender, Supple Respiratory: Lungs Clear, Decreased Breath Sounds, Other (coarse breath sounds bilaterally) Cardiovascular: Regular Rate, Rhythm, No Edema, Normal Peripheral Pulses Extremity: Normal Capillary Refill, Normal Inspection, Normal Range of Motion, No Calf Tenderness Neurologic/Psychiatric: Alert, Oriented x3, official court interpreter II-XII Norm as Tested Skin: Normal Color, Warm/Dry Focused Exam Sepsis Stage: Ruled Out Progress/Results/Core Measures Results/Orders Lab Results Laboratory Tests Test 05/29/19 14:01 Range/Units White Blood Count 7.3 4.3-11.0 10^3/uL Red Blood Count 4.98 4.35-5.85 10^6/uL Hemoglobin 13.8 13.3-17.7 G/DL Hematocrit 41 40-54 % Mean Corpuscular Volume 83 80-99 FL Mean Corpuscular Hemoglobin 28 25-34 PG Mean Corpuscular Hemoglobin Concent 33 32-36 G/DL Red Cell Distribution Width 15.4 H 10.0-14.5 % Platelet Count 518 H 130-400 10^3/uL Mean Platelet Volume 9.7 7.4-10.4 FL Neutrophils (%) (Auto) 64 42-75 % Lymphocytes (%) (Auto) 18 12-44 % Monocytes (%) (Auto) 12 0-12 % Eosinophils (%) (Auto) 3 0-10 % Basophils (%) (Auto) 1 0-10 % Neutrophils # (Auto) 4.7 1.8-7.8 X 10^3 Lymphocytes # (Auto) 1.3 1.0-4.0 X 10^3 Monocytes # (Auto) 0.9 0.0-1.0 X 10^3 Eosinophils # (Auto) 0.2 0.0-0.3 10^3/uL Basophils # (Auto) 0.1 0.0-0.1 10^3/uL Sodium Level 141 135-145 MMOL/L Potassium Level 4.0 3.6-5.0 MMOL/L Chloride Level 102 98-107 MMOL/L Carbon Dioxide Level 26 21-32 MMOL/L Anion Gap 13 5-14 MMOL/L Blood Urea Nitrogen 13 7-18 MG/DL Creatinine 1.14 0.60-1.30 MG/DL Estimat Glomerular Filtration Rate > 60 BUN/Creatinine Ratio 11 Glucose Level 111 H 70-105 MG/DL Calcium Level 9.5 8.5-10.1 MG/DL Corrected Calcium 9.7 8.5-10.1 MG/DL Total Bilirubin 0.3 0.1-1.0 MG/DL Aspartate Amino Transf (AST/SGOT) 15 5-34 U/L Alanine Aminotransferase (ALT/SGPT) 14 0-55 U/L Alkaline Phosphatase 73 40-136 U/L Troponin I 0.36 *H <0.30 NG/ML Pro-B-Type Natriuretic Peptide 2132.0 H <75.0 PG/ML Total Protein 6.9 6.4-8.2 GM/DL Albumin 3.8 3.2-4.5 GM/DL My Orders Orders - NELLY POST DO Cbc With Automated Diff (05/29/19 13:45) Comprehensive Metabolic Panel (05/29/19 13:45) Troponin I (05/29/19 13:45) Probnp Fs (05/29/19 13:45) Chest 1 View Ap/Pa Only (05/29/19 13:45) Ekg Tracing (05/29/19 13:46) Furosemide Tablet (Lasix Tablet) (05/29/19 15:30) Hydrocodone/Apap 5/325 Tablet (Lortab 5 (05/29/19 15:30) Famotidine Tablet (Pepcid Tablet) (05/29/19 15:30) Furosemide Tablet (Lasix Tablet) (05/29/19 15:20) Furosemide Tablet (Lasix Tablet) (05/29/19 15:21) Hydrocodone/Apap 10/325 Tablet (Lortab 1 (05/29/19 19:30) Medications Given in ED Current Medications Medications Dose Ordered Sig/Janet Route Start Time Stop Time Status Last Admin Dose Admin Acetaminophen/ Hydrocodone Bitart 1 tab ONCE ONCE PO 05/29/19 15:30 05/29/19 15:31 DC 05/29/19 15:31 1 TAB Famotidine 20 mg ONCE ONCE PO 05/29/19 15:30 05/29/19 15:31 DC 05/29/19 15:30 20 MG Furosemide 80 mg ONCE ONCE PO 05/29/19 15:30 05/29/19 15:31 DC 05/29/19 15:30 80 MG Vital Signs/I&O 05/29/19 05/29/19 14:11 18:53 Temp 36.1 Pulse 80 77 Resp 15 18 B/P (MAP) 150/101 124/87 (99) Pulse Ox 97 97 O2 Delivery Room Air Room Air Blood Pressure Mean: 117 Departure Communication (Admissions) EKG: Normal sinus rhythm, rate 76, left anterior fascicular block, poor R-wave progression in anterior leads. QTc interval, 487. No acute ST elevation. interpretation by ED physician Case reviewed with Dr. Chatman nurse practitioner at [facility]. Recommendations were to transfer patient to . Dr. Price accepts patient. Impression Primary Impression: Chest pain Additional Impressions: Congestive heart failure Elevated troponin I level Disposition: SHT-TRM HOSP Condition: Stable Departure-Patient Inst. Referrals: [facility] (PCP) Primary Care Physician NIKKI WILEY APRN (Family) Primary Care Physician NELLY POST DO May 29, 2019 15:19
[2019-05-29] MEDS ORDERED: FAMOTIDINE 20 MG (PEPCID) TABLET PO ONE (15:30)
[2019-05-29] MEDS ORDERED: HYDROcodone/APAP 5 MG/325 MG (LORTAB) TAB PO ONE (15:30)
[2019-05-29] MEDS ORDERED: FUROSEMIDE 40 MG (LASIX) TAB PO ONE (15:30)
[2019-05-29 18:53] VITALS: BP 124/87
[2019-05-29] MEDS ORDERED: HYDROcodone/APAP 10 MG/325 MG (LORTAB) TAB PO ONE (19:30)
--- NOTE | 2019-05-29 21:22 | NUR ---
PT INFORMED THAT EMS TRANSPORTED ANOTHER MORE CRITICAL PATIENT INSTEAD OF TAKING HIM. PT BECAME BELIGERANT BECAUSE HE WAS GOING TO HAVE TO WAIT FOR EMS TO MAKE IT BACK IN [facility].
[2019-05-29] MEDS ORDERED: ALPRAZolam 0.5 MG (XANAX) TAB PO PRN (22:00)
--- NOTE | 2019-05-29 22:29 | NUR ---
PT RESTING IN BED WITH THE LIGHTS OFF. PT STATES THERE IS NOTHING HE NEEDS AT THIS TIME.
--- NOTE | 2019-05-29 22:47 | NUR ---
GORDO BECKWITH AT AND CADE AT TRANSFER CONTACTED AND GIVEN UPDATE ON PT ETA.
--- NOTE | 2019-05-30 00:01 | NUR ---
PT CONTINUES TO REST IN BED. PT INFORMED THAT EMS WAS ENROUTE TO PICK HIM UP. PT STATES THERE IS NOTHING HE NEEDS AT THIS TIME.
[2019-05-30 01:58] VITALS: BP 139/79
== END 2019-05-30 01:57 | disposition short-term general hospital (02) ==
LOC: EDUNIT# 13:29 → ER FS 13:31
DX: R07.9 Chest pain, unspecified (principal); I50.9 Heart failure, unspecified; R79.89 Other specified abnormal findings of blood chemistry; I48.91 Unspecified atrial fibrillation; I48.92 Unspecified atrial flutter; I25.10 Atherosclerotic heart disease of native coronary artery without angina pectoris; G43.909 Migraine, unspecified, not intractable, without status migrainosus; E03.9 Hypothyroidism, unspecified; F41.9 Anxiety disorder, unspecified; F32.9 Major depressive disorder, single episode, unspecified; B19.20 Unspecified viral hepatitis C without hepatic coma; Z86.718 Personal history of other venous thrombosis and embolism; Z86.711 Personal history of pulmonary embolism; Z87.891 Personal history of nicotine dependence; Z90.49 Acquired absence of other specified parts of digestive tract; Z86.010 Personal history of colon polyps; Z82.49 Family history of ischemic heart disease and other diseases of the circulatory system
CPT/HCPCS: 36415; 71045; 80053; 83880; 84484; 85025; 93005

== ENCOUNTER 2019-11-09 13:58 | Emergency (ER) | payer MEDICAID ==
[~2019-11-09] VITALS: Ht 182.8 cm; Wt 100.2 kg
[~2019-11-09 13:58] MED LIST changes: -ARIP5TAB20 PO; +ARIP5TAB57 PO
--- NOTE | 2019-11-09 15:29 | NUR ---
Pt took med per eMAR, pt begins gagging with p.o. Pt mixed his med in water then had more volume to get down. Pt taste tested the medication in anticipation of wanting to refuse.
[2019-11-09] MEDS ORDERED: DEXAMETHASONE 1 MG/ML 5 ML UDC (DECADRON) ORAL SOLUTION PO SCH (15:30)
--- NOTE | 2019-11-09 15:36 | ED General ---
General Chief Complaint: General Problems/Pain Stated Complaint: CHEST PAIN Nursing Triage Note: Pt here reporting numerous c/o's that detail all teeth removed under anesthesia with [facility] yesterday and does not feel well since. Pt states bleeding persisted into evening then he got a headache then started hurting in the chest alittle. Pt states he feels since he was put to sleep the throat is so sore it feels like he is choking. Nursing Sepsis Screen: No Definite Risk History of Present Illness Date Seen by Provider: Nov 09, 2019 Time Seen by Provider: 14:39 Initial Comments The patient is a 59-year-old male with a history of prior atrial fibrillation s/p ablation at [facility] and DVT, formerly on Eliquis but discontinued per patient after his ablation, hypothyroidism and chronic back pain. Yesterday he had a procedure under general anesthesia at the [facility] in [place] during which all of his teeth were removed by an oral surgeon.. Mr. Rice presents with multiple complaints. First, he notes some mild midsternal chest discomfort last evening, but not to day and not now. Pain was achy and non-radiating and non-pleuritic and nonexertional and nothing seemed to make it better or worse. As above, it resolved yesterday evening and has not recurred. Second, he notes pain and swelling to his entire mouth and jaw with onset after having 30-plus teeth removed from his mandible and maxilla yesterday. He reports that this pain is largely controlled with his home pain medications. Third, he notes some mild throat pain and mild discomfort with swallowing, with onset yesterday after awakening from general anesthesia. He was intubated for his procedure. The patient denies fevers, nausea or vomiting, cough, trismus, change in voice, difficulty with secretions, shortness of breath, any chest pain today as above, abdominal pain, flank pain, back pain. Patient is resting comfortably in no acute distress upon initial evaluation in the emergency department and has appropriate vital signs including oxygenation. He is speaking comfortably in full sentences in absolutely no distress. Reportedly the patient spoke to a nurse at the [facility] who advised him that if he was having significant throat pain that he needed to go to the emergency department for evaluation. In speaking to him now he tells me that he thinks he just got worked up in talking to the clinic staff and is not really hurting that much. Allergies and Home Medications Allergies Coded Allergies: No Known Drug Allergies (Verified , 03/01/19) Home Medications Alprazolam 1 Mg Tablet, 1 MG PO TID PRN for ANXIETY, (Reported) Apixaban 5 Mg Tablet, 5 MG PO BID, (Reported) Diltiazem HCl 120 Mg Cap.er.24h, 120 MG PO 0500, (Reported) Dronedarone HCl 400 Mg Tablet, 400 MG PO BID Prescribed by: NIC LÓPEZ on 10/14/182020 Levothyroxine Sodium 25 Mcg Tablet, 25 MCG PO DAILY, (Reported) Oxycodone HCl 5 Mg Tablet, 5 MG PO QID PRN for PAIN-SEVERE, (Reported) Oxycodone HCl/Acetaminophen 1 Each Tablet, 1 TAB PO Q6H PRN for BREAKTHROUGH PAIN Prescribed by: TERESA MENESES on 03/01/19 1214 Oxycodone HCl/Acetaminophen 1 Each Tablet, 1-2 TAB PO Q4H PRN for PAIN-MODERATE Prescribed by: MUNDO SCHAFFER on 03/01/19 5208 Patient Home Medication List Home Medication List Reviewed: Yes Review of Systems Review of Systems Constitutional: see HPI All Other Systems Reviewed Negative Unless Noted: Yes (Negative excepted noted.) Past Fjexzhl-Jdhizn-Oqrbwy Hx Past Med/Social Hx: Reviewed Nursing Past Med/Soc Hx Patient Social History Alcohol Use: Denies Use Recreational Drug Use: No (DENIES ETOH OR TOBACCO USE) Smoking Status: Former Smoker Type Used: Cigarettes Former Smoker, Quit: Jul 12, 1985 2nd Hand Smoke Exposure: No Recent Foreign Travel: No Contact w/Someone Who Travel: No Recent Infectious Disease Expo: No Recent Hopitalizations: No Physical Abuse: No Sexual Abuse: No Mistreated: No Fear: No Immunizations Up To Date Tetanus Booster (TDap): Unknown Date of Pneumonia Vaccine: Jul 21, 2018 Date of Influenza Vaccine: Jul 21, 2018 Seasonal Allergies Seasonal Allergies: No Past Medical History Surgeries: Yes (splenectomy, 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) Appendectomy Respiratory: Yes Pulmonary Embolism Cardiac: Yes (atrial flutter, portal vein thrombosis, CAD) Atrial Fibrillation, Deep Vein Thrombosis Neurological: Yes Headaches /Migraines Reproductive Disorders: No Sexually Transmitted Disease: Yes (Hep C: treated) HIV/AIDS: No Genitourinary: Yes (enlarged prostate) Prostate Problems Gastrointestinal: Yes Diverticulosis, Hemorrhoids Musculoskeletal: Yes (bulging disk lower back, laminectomy cervical fusion) Arthritis Endocrine: Yes Hypothyroidsim HEENT: No Loss of Vision: Denies Hearing Impairment: Denies Cancer: Yes (adenocarcinoma colon (polyp during colonoscopy)) Colon Did You Recieve Any Treatments: Yes What Type of Treatment Did You: Surgical Intervention Psychosocial: Yes Anxiety, Depression Integumentary: No Blood Disorders: No Adverse Reaction/Blood Tranf: No Family Medical History Reviewed Nursing Family Hx Heart Disease, Hypertension Physical Exam Vital Signs Vital Signs - First Documented 11/09/19 14:05 Temp 37.2 Pulse 90 Resp 16 B/P (MAP) 120/84 (96) Pulse Ox 96 O2 Delivery Room Air Capillary Refill : Less Than 3 Seconds Height, Weight, BMI Height: 6'0" Weight: 224lbs. 0oz. [id number]; 29.00 BMI Method:Stated General Appearance: No Apparent Distress Comments This is an older male appearing nontoxic and in no acute distress. Head is normocephalic and atraumatic. Neck is supple and nontender. Oropharynx is moist. There is extensive stigmata of recent oral surgery with tooth removal to entire mandible and maxilla with sutures in place without dehiscence, erythema, warmth, significant tenderness or purulent drainage noted. There is mild swelling to the entire maxillary and mandibular gingiva consistent with recent removal No trismus. No posterior oropharyngeal erythema, tonsillar exudate or swelling or uvular deviation. He is tolerating secretions well. He is speaking in a normal tone of voice. Lungs are clear to auscultation at all stations. There is a normal S1 and S2 without rubs or gallops and capillary refill is appropriate, less than 2 seconds globally. Abdomen is soft, nontender and nondistended. Skin is warm and dry without cyanosis, clubbing or edema. Psychiatrically, the patient demonstrates appropriate mood and affect and is alert. Progress/Results/Core Measures Suspected Sepsis Recent Fever Within 48 Hours: No Infection Criteria Present: None New/Unexplained Altered Menta: No Sepsis Screen: No Definite Risk SIRS Temperature: Pulse: 90 Respiratory Rate: 16 Blood Pressure 120 /84 Mean: 96 Results/Orders My Orders Orders - FLACO DURÁN MD Ekg Tracing (11/09/19 14:52) Ekg Tracing (11/09/19 15:03) Dexamethasone Oral Soln (Ed) (Decadron I (11/09/19 15:30) Vital Signs/I&O 11/09/19 14:05 Temp 37.2 Pulse 90 Resp 16 B/P (MAP) 120/84 (96) Pulse Ox 96 O2 Delivery Room Air Capillary Refill : Less Than 3 Seconds Blood Pressure Mean: 96 Progress Note : Time: 15:44 Progress Note 59-year-old gentleman who presents for evaluation of mild chest discomfort last night and oropharyngeal and throat discomfort after being intubated to have all of his teeth removed yesterday. All symptoms are likely sequela of be sedated procedure yesterday. I have however recommended to the patient that we further evaluate his symptoms with advanced imaging of the soft tissues of the neck as well as labs, EKG, and chest x-ray to further evaluate his chest discomfort last night. Patient declines all testing and states that "I think I just got more worked up and I should've been about my mouth pain." I let the patient know that if he simply wished to be treated for his mouth and throat discomfort and swelling that we would be glad to provide treatment and would give him a dose of steroids and a dose of his home pain medication prior to his release. He has been counseled, though, that there is a risk of missed pathology with this ap proach and that if he elects to defer indicated testing that he is at risk for decompensation, permanent disability and even . He understands these risks and agrees to accept them and be wholly and solely responsible for them in their entirety. He understands that if he changes his mind about being further evaluated he is welcome to return at any time. We will go ahead and treat with some oxycodone and a dose of oral dexamethasone and then released the patient against medical advice per his express request. Departure Impression Primary Impression: Mouth swelling Additional Impression: Throat pain in adult Disposition: 07 AGAINST MEDICAL ADVICE Condition: Stable Departure-Patient Inst. Referrals: [facility] (PCP) Primary Care Physician NIKKI WILEY APRN (Family) Primary Care Physician Patient Instructions: Sore Throat, Adult (DC) Add. Discharge Instructions: Please follow up with your operating oral surgeon in the next 1-2 days for reevaluation of your symptoms. As we have discussed, we are discharging you without further laboratory or imaging evaluation of your chest pain yesterday or of your throat pain today. Because of this, you will be leaving against our advice. If you change your mind about wanting to be further evaluated for these symptoms please don't hesitate to return and we will be glad to take care of you. Return right away for worsening symptoms or other new concerns. FLACO DURÁN MD Nov 09, 2019 15:36
[2019-11-09 15:54] VITALS: BP 115/76
--- NOTE | 2019-11-09 15:54 | NUR ---
Pt discharged to home after refusal of a complete work up for numerous c/o's including Chest pain and SOA. Pt has in detail visited with and explains he is more likely miserable as throat discomfort after yeaterday's intubation/advanced airway for surgery has left him not swallowing food easily and some discomfort with fluids. Pt felt better after steroid p.o. elixir and some ice water. Pt did refuse a CT offer of neck. Pt states he may just be feeling bad after surgery and is hungry but cannot tolerate with throat discomfort. Pt requests discharge without further work up and refusal tests, xrays, CT's, IV or lab. Pt wants to go try an ice cream shake or some hot tea. Dr has advised the cool liquids may be more beneficial to throat discomfort. Pt is not wheezing nor signs of respiratory distress. SaO2 > 95%. Pt reports improvement after steroid.
--- NOTE | 2019-11-09 17:50 | NUR ---
EKG order cancelled by and states to dc the report from chart. The 1409 EKG was Sinus Rhythm, rate 89.
== END 2019-11-09 15:54 | disposition left against medical advice (07) ==
LOC: EDUNIT# 13:58 → ER FS 14:00
DX: R22.0 Localized swelling, mass and lump, head (principal); R07.0 Pain in throat; I48.91 Unspecified atrial fibrillation; I25.10 Atherosclerotic heart disease of native coronary artery without angina pectoris; E03.9 Hypothyroidism, unspecified; F41.9 Anxiety disorder, unspecified; F32.9 Major depressive disorder, single episode, unspecified; Z85.038 Personal history of other malignant neoplasm of large intestine; Z79.01 Long term (current) use of anticoagulants; Z87.891 Personal history of nicotine dependence; Z86.711 Personal history of pulmonary embolism; Z86.718 Personal history of other venous thrombosis and embolism; Z82.49 Family history of ischemic heart disease and other diseases of the circulatory system
CPT/HCPCS: 99283

== ENCOUNTER 2020-01-17 17:22 | Emergency (ER) | payer MEDICAID ==
[~2020-01-17] VITALS: Ht 182.8 cm; Wt 97.3 kg
[~2020-01-17 17:22] MED LIST changes: -OXYC-529 PO; +OXYC5TAB96 PO
[2020-01-17] MEDS ORDERED: ADENOSINE 6 MG/2 ML (ADENOCARD) VIAL IV ONE ×3 (17:31→18:00)
[2020-01-17] MEDS ORDERED: dilTIAZem DRIP PRE-MIX 125 ML IV ONE (17:40)
--- NOTE | 2020-01-17 17:42 | ED Cardiac General ---
History of Present Illness General Stated Complaint: CHEST PAIN Source: patient Exam Limitations: no limitations (MENA AMOR DO) History of Present Illness Date Seen by Provider: Jan 17, 2020 Time Seen by Provider: 17:35 Initial Comments Onset of rapid heart rate today a couple hours prior to arrival. Hx of Card. ablation May 2019 @ [facility]. Pt not a good historian. Says he took heart medication, blood thinner. Now off all of that since the ablation. (MENA AMOR DO) Initial Comments 59 yo Male presenting with rapid heart rate that was present off and on this afternoon. he states that he had some shortness of breath with the rapid heart rate. From review of his chart he has a history of atrial fibrillation and has had to be on diltiazem drip in the past. He had followed with Dr. Emmanuel from Cardiology at for an ablation and would like to be transferred to if he has to go to a hospital. (KACY MARC MD) Allergies and Home Medications Allergies Coded Allergies: No Known Drug Allergies (Verified , 03/01/19) Home Medications Alprazolam 1 Mg Tablet, 1 MG PO TID PRN for ANXIETY, (Reported) Apixaban 5 Mg Tablet, 5 MG PO BID, (Reported) Diltiazem HCl 120 Mg Cap.er.24h, 120 MG PO 0500, (Reported) Dronedarone HCl 400 Mg Tablet, 400 MG PO BID Prescribed by: NIC LÓPEZ on 10/14/182020 Levothyroxine Sodium 25 Mcg Tablet, 25 MCG PO DAILY, (Reported) Oxycodone HCl 5 Mg Tablet, 5 MG PO QID PRN for PAIN-SEVERE, (Reported) Oxycodone HCl/Acetaminophen 1 Each Tablet, 1 TAB PO Q6H PRN for BREAKTHROUGH PAIN Prescribed by: TERESA MENESES on 03/01/19 1214 Oxycodone HCl/Acetaminophen 1 Each Tablet, 1-2 TAB PO Q4H PRN for PAIN-MODERATE Prescribed by: MUNDO SCHAFFER on 03/01/19 1898 Patient Home Medication List Home Medication List Reviewed: Yes (MENA AMOR DO) Home Medication List Reviewed: Yes (KACY MARC MD) Review of Systems Review of Systems Constitutional: see HPI, malaise; No weakness Respiratory: Denies Cough, Denies Shortness of Air Cardiovascular: Chest Pain, Irregular Heart Rate, Palpitations Gastrointestinal: See HPI; Denies Abdominal Pain, Denies Constipated, Denies Diarrhea, Denies Nausea, Denies Poor Appetite Musculoskeletal: No back pain, No joint pain (ROVENSTINEMENA L DO) EENTM: No Symptoms Reported Skin: no symptoms reported Psychiatric/Neurological: No Symptoms Reported Endocrine: No Symptoms Reported Hematologic/Lymphatic: No Symptoms Reported (KACY MARC MD) Past Umcuexn-Guxukk-Einlns Hx Past Med/Social Hx: Reviewed Nursing Past Med/Soc Hx (MENA AMOR L ) Patient Social History Alcohol Use: Denies Use Recreational Drug Use: No Type Used: Cigarettes Former Smoker, Quit: Jul 12, 1985 2nd Hand Smoke Exposure: No Recent Foreign Travel: No Contact w/Someone Who Travel: No Recent Hopitalizations: No (CANDYSTROGER CEBALLOSEN L ) Immunizations Up To Date Tetanus Booster (TDap): Unknown Date of Pneumonia Vaccine: Jul 21, 2018 Date of Influenza Vaccine: Jul 21, 2018 (CANDYSTROGER CEBALLOSEN Vanessa MELCHOR) Seasonal Allergies Seasonal Allergies: No (CANDYSTINEMENA L ) Past Medical History Surgeries: Yes (splenectomy, 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) Appendectomy Respiratory: Yes Pulmonary Embolism Cardiac: Yes (atrial flutter, portal vein thrombosis, CAD) Atrial Fibrillation, Deep Vein Thrombosis Neurological: Yes Headaches /Migraines Reproductive Disorders: No Sexually Transmitted Disease: Yes (Hep C: treated) HIV/AIDS: No Genitourinary: Yes (enlarged prostate) Prostate Problems Gastrointestinal: Yes Diverticulosis, Hemorrhoids Musculoskeletal: Yes (bulging disk lower back, laminectomy cervical fusion) Arthritis Endocrine: Yes Hypothyroidsim HEENT: No Loss of Vision: Denies Hearing Impairment: Denies Cancer: Yes (adenocarcinoma colon (polyp during colonoscopy)) Colon Did You Recieve Any Treatments: Yes What Type of Treatment Did You: Surgical Intervention Psychosocial: Yes Anxiety, Depression Integumentary: No Blood Disorders: No Adverse Reaction/Blood Tranf: No (CANDYSTINEROGERMENA L ) Surgeries: Yes (Cardiac Ablation May 2019 at ) Respiratory: No Cardiac: Yes Atrial Fibrillation, High Cholesterol, Hypertension, Irregular Heartbeat Neurological: No Genitourinary: No Gastrointestinal: No Musculoskeletal: No Endocrine: Yes Hypothyroidsim HEENT: No Cancer: No Psychosocial: No Integumentary: No (KACY MARC MD) Family Medical History Heart Disease, Hypertension (MENA AMOR DO) Physical Exam Vital Signs Vital Signs - First Documented 01/17/20 17:26 Temp 37.0 Pulse 166 Resp 12 B/P (MAP) 131/98 (109) Pulse Ox 94 (KACY MARC MD) Vital Signs Capillary Refill : (MENA AMOR DO) Height, Weight, BMI Height: 6'0" Weight: 224lbs. 0oz. 101.683539rg; 29.00 BMI Method:Stated General Appearance: No Apparent Distress, WD/WN HEENT: Normal ENT Inspection Neck: Normal Inspection, Non Tender, Supple Respiratory: Chest Non Tender, Lungs Clear, No Respiratory Distress Cardiovascular: No Edema, No Gallop, No JVD, Tachycardia Gastrointestinal: Non Tender, Soft Extremity: Normal Capillary Refill, Non Tender, No Calf Tenderness Neurologic/Psychiatric: Alert, Oriented x3, No Motor/Sensory Deficits Skin: Normal Color, Warm/Dry (MENA AMOR DO) Cardiovascular: Irregularly Irregular (KACY MARC MD) Progress/Results/Core Measures Results/Orders Lab Results Laboratory Tests Test 01/17/20 17:35 Range/Units White Blood Count 11.9 H 4.3-11.0 10^3/uL Red Blood Count 5.63 4.35-5.85 10^6/uL Hemoglobin 15.7 13.3-17.7 G/DL Hematocrit 46 40-54 % Mean Corpuscular Volume 81 80-99 FL Mean Corpuscular Hemoglobin 28 25-34 PG Mean Corpuscular Hemoglobin Concent 34 32-36 G/DL Red Cell Distribution Width 15.2 H 10.0-14.5 % Platelet Count 472 H 130-400 10^3/uL Mean Platelet Volume 9.6 7.4-10.4 FL Neutrophils (%) (Auto) 68 42-75 % Lymphocytes (%) (Auto) 16 12-44 % Monocytes (%) (Auto) 10 0-12 % Eosinophils (%) (Auto) 5 0-10 % Basophils (%) (Auto) 1 0-10 % Neutrophils # (Auto) 8.1 H 1.8-7.8 X 10^3 Lymphocytes # (Auto) 1.9 1.0-4.0 X 10^3 Monocytes # (Auto) 1.2 H 0.0-1.0 X 10^3 Eosinophils # (Auto) 0.6 H 0.0-0.3 10^3/uL Basophils # (Auto) 0.1 0.0-0.1 10^3/uL Prothrombin Time 12.2 12.2-14.7 SEC INR Comment 0.9 0.8-1.4 Activated Partial Thromboplast Time 24 24-35 SEC Sodium Level 140 135-145 MMOL/L Potassium Level 4.4 3.6-5.0 MMOL/L Chloride Level 103 98-107 MMOL/L Carbon Dioxide Level 24 21-32 MMOL/L Anion Gap 13 5-14 MMOL/L Blood Urea Nitrogen 18 7-18 MG/DL Creatinine 1.24 0.60-1.30 MG/DL Estimat Glomerular Filtration Rate 59 BUN/Creatinine Ratio 15 Glucose Level 116 H 70-105 MG/DL Calcium Level 10.0 8.5-10.1 MG/DL Corrected Calcium 9.9 8.5-10.1 MG/DL Magnesium Level 2.2 1.6-2.4 MG/DL Total Bilirubin 0.2 0.1-1.0 MG/DL Aspartate Amino Transf (AST/SGOT) 22 5-34 U/L Alanine Aminotransferase (ALT/SGPT) 15 0-55 U/L Alkaline Phosphatase 80 40-136 U/L Troponin I < 0.30 <0.30 NG/ML Pro-B-Type Natriuretic Peptide 1272.0 H <75.0 PG/ML Total Protein 6.8 6.4-8.2 GM/DL Albumin 4.1 3.2-4.5 GM/DL Smear Scan OK (KACY MARC MD) My Orders Orders - KACY MARC MD Enoxaparin Injection (Lovenox Injection) (01/17/20 18:31) Chest 1 View Ap/Pa Only (01/17/20 18:31) Probnp Fs (01/17/20 18:31) Protime With Inr (01/17/20 18:31) Partial Thromboplastin Time (01/17/20 18:31) Magnesium (01/17/20 18:31) (KACY MARC MD) Medications Given in ED Current Medications Medications Dose Ordered Sig/Janet Route Start Time Stop Time Status Last Admin Dose Admin Adenosine 6 mg STK-MED ONCE IV 01/17/20 17:31 01/17/20 17:38 DC 01/17/20 17:52 6 MG Adenosine 12 mg ONCE ONCE IV 01/17/20 18:00 01/17/20 18:01 DC 01/17/20 18:40 12 MG Diltiazem HCl 10 mg ONCE ONCE IVP 01/17/20 18:00 01/17/20 18:01 UNV 01/17/20 17:54 10 MG (KACY MARC MD) Vital Signs/I&O 01/17/20 17:26 Temp 37.0 Pulse 166 Resp 12 B/P (MAP) 131/98 (109) Pulse Ox 94 (KACY MARC MD) Progress Progress Note #1: Time: 18:21 Progress Note I assumed care for the patient from Dr. Lyon at shift change. His labs ca me back showing mild elevation of his WBC count with normal differential. His Chemistry and Troponin are normal. He did require diltiazem bolus and drip to convert him to a sinus rhythm. Will add on magnesium, proBNP, CXR, give lovenox 1 mg/kg SC. 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 1834 call placed to [facility] transfer center and spoke with GORDO Mak. She took the information and will call back. Progress Note #2: Time: 18:58 Progress Note GORDO Mak, from transfer center called back and accepted pt on behalf of Dr. Lev Rodriguez. Will call back with room assignment as soon as one is available. Progress Note #3: Time: 19:18 Progress Note CXR is clear and does not show any acute process. Magnesium is ok at 2.2. proBNP is slightly elevated at 1,272. Coags are normal. Still pending room assignment from . Pt HR down to 90 and BP at 135/83. (KACY MARC MD) Initial ECG Impression Time: 17:27 Initial ECG Rate: 160 Initial ECG Rhythm: SVT Initial ECG Impression: SVT (ANDRESVENSTMENA CEBALLOS DO) EKG : EKG Time: 17:51 Rate: 97 Rhythm: Normal Sinus ECG Comparisson: Changed Comment Sinus Rhythm with rate of 97 bpm. Left anterior fascicular block. LA interval of 178 ms. QT interval of 350 ms with QTc interval of [address] elevation. Improved rate and no longer appears to be in atrial fibrillation with RVR. (KACY MARC MD) Diagnostic Imaging Diagonstic Imaging: Xray Plain Films/CT/US/NM/MRI: chest Comments [facility] [place] NAME: JUAN CARLOS [facility] REC#: [id number] PT STATUS: REG ER : 1960 PHYSICIAN: KACY MARC MD ADMIT DATE: 01/17/20/ER FS Draft Date of Exam:01/17/20 CHEST 1 VIEW AP/PA ONLY INDICATION: Chest pain. EXAMINATION: Chest, one view at 6:40 p.m. FINDINGS: The heart size is within normal limits and stable when compared to 05/29/2019. The previous study did show bibasilar pneumonia/atelectasis and small bilateral pleural effusions. On this exam the lung bases do seem better aerated. There are a few carotid bronchovascular markings in the right infrahilar region but there is no clear evidence for pneumonia or for a pleural effusion. The upper lungs are clear. The mediastinum is not widened. The osseous structures are intact. IMPRESSION: There is no evidence for an acute cardiopulmonary abnormality. Dictated on workstation # [id number] Dict: 01/17/205 Trans: 01/17/20 184 [facility] [id number] Interpreted by: MARLENY MOLINA MD Electronically signed by: (KACY MARC MD) Transfer of Care Time: 18:00 Care transferred to: transfer care to Dr Marc @ shift change. (MENA AMOR DO) Departure Impression Primary Impression: Atrial fibrillation with RVR Disposition: XF SHT-TRM HOSP Condition: Stable Transfer Transfer Reason: Patient preference (MENA AMOR DO) Transfer Reason: Patient preference Time Spoke to Accepting Phy: 18:58 Transfer Progress Notes 1857 GORDO Mak, from [facility] called back and accepted pt on behalf of Dr. Lev Rodriguez for transfer. They requested he be anticoagulated, which I advised he had received 1 mg/kg of Lovenox SC already. They also requested he be NPO for possible cardioversion in am. Will call back with a bed assignment as soon as one is available. Transfer Facility: [facility] Method of Transfer: EMS (KACY MARC MD) Departure-Patient Inst. Referrals: [facility] (PCP) Primary Care Physician NIKKI WILEY APRN (Family) Primary Care Physician MENA AMOR DO Jan 17, 2020 17:42 KACY MARC MD Jan 17, 2020 18:50
[2020-01-17] MEDS ORDERED: NS IV 1000 ML 1,000 ML IV SCH (17:45)
[2020-01-17 17:46] LABS: HEMATOCRIT 46 % (40-54); HEMOGLOBIN 15.7 G/DL (13.3-17.7); MEAN CORPUSCULAR HEMOGLOBIN 28 PG (25-34); MEAN CORPUSCULAR HGB CONC 34 G/DL (32-36); MEAN CORPUSCULAR VOLUME 81 FL (80-99); PLATELET COUNT 472 10^3/uL (130-400); RED CELL DISTRIBUTION WIDTH 15.2 % (10.0-14.5); WHITE BLOOD COUNT 11.9 10^3/uL (4.3-11.0)
[2020-01-17 17:47] LABS: MEAN PLATELET VOLUME 9.6 FL (7.4-10.4)
[2020-01-17 17:49] LABS: BASOPHILS % (AUTO) 1 % (0-10); EOSINOPHILS % (AUTO) 5 % (0-10); LYMPHOCYTES % (AUTO) 16 % (12-44); MONOCYTES % (AUTO) 10 % (0-12); NEUTROPHILS % (AUTO) 68 % (42-75)
[2020-01-17 17:50] LABS: BASOPHILS # (AUTO) 0.1 10^3/uL (0.0-0.1); EOSINOPHILS # (AUTO) 0.6 10^3/uL (0.0-0.3); LYMPHOCYTES # (AUTO) 1.9 X 10^3 (1.0-4.0); MONOCYTES # (AUTO) 1.2 X 10^3 (0.0-1.0); NEUTROPHILS # (AUTO) 8.1 X 10^3 (1.8-7.8)
[2020-01-17 17:58] LABS: SMEAR SCAN COMMENT OK
[2020-01-17] MEDS ORDERED: dilTIAZem DRIP PRE-MIX 125 ML IV SCH (18:00)
[2020-01-17 18:12] LABS: ALANINE AMINOTRANSFERASE 15 U/L (0-55); ALKALINE PHOSPHATASE 80 U/L (40-136); BILIRUBIN,TOTAL 0.2 MG/DL (0.1-1.0); BUN/CREATININE RATIO 15; CARBON DIOXIDE 24 MMOL/L (21-32); CHLORIDE 103 MMOL/L (98-107); CREATININE SERUM 1.24 MG/DL (0.60-1.30); GFR ESTIMATED 59; GLUCOSE 116 MG/DL (70-105); POTASSIUM 4.4 MMOL/L (3.6-5.0); SODIUM 140 MMOL/L (135-145); TOTAL PROTEIN 6.8 GM/DL (6.4-8.2)
[2020-01-17 18:13] LABS: ALBUMIN 4.1 GM/DL (3.2-4.5)
[2020-01-17] MEDS ORDERED: ENOXAPARIN 100 MG/1 ML (LOVENOX) SYR SC STA (18:31)
--- NOTE | 2020-01-17 18:49 | Diagnostic Imaging Report ---
INDICATION: Chest pain. EXAMINATION: Chest, one view at 6:40 p.m. FINDINGS: The heart size is within normal limits and stable when compared to 05/29/2019. The previous study did show bibasilar pneumonia/atelectasis and small bilateral pleural effusions. On this exam the lung bases do seem better aerated. There are a few carotid bronchovascular markings in the right infrahilar region but there is no clear evidence for pneumonia or for a pleural effusion. The upper lungs are clear. The mediastinum is not widened. The osseous structures are intact. IMPRESSION: There is no evidence for an acute cardiopulmonary abnormality. Dictated by: Dictated on workstation # [id number]
[2020-01-17 18:50] LABS: INR 0.9 (0.8-1.4); PROTHROMBIN TIME PATIENT 12.2 SEC (12.2-14.7)
--- OUTSIDE RECORDS SUMMARY | 2020-01-17 18:56 | XMS REPORT | Clinical Summary ---
Author Author [facility] Organization [facility] Address Unknown Phone Unavailable Care Team Providers Care Paid Search Marketing Analyst Name Role Phone Sherman Spicer MD Unavailable Reyna Bond Unavailable Unavailable Indiana Bauer APRN PCP Unavailable Source Comments Some departments are not documenting in the electronic medical record. If you d o not see the information that you expected, contact Release of Information in [facility] [employer] Information Management department at [phone] for further assistan ce in locating additional records.[facility] Allergies No Known Allergies Medications End Date Status Medication Sig Dispensed Refills Start Date Active ALPRAZolam (XANAX) 1 mg Take one 0 tablet tablet by 9 mouth three times daily as needed for Anxiety. Additional Information Patient taking differently: 1 mg Oral TWICE DAILY PRN, Anxiety, Reported on 05/24/2019 10:31 AM Active levothyroxine (SYNTHROID) Take 50 mcg 0 25 mcg tablet by mouth daily. Active pantoprazole DR Take one 74 tablet 0 (PROTONIX) 40 mg tablet tablet by 9 mouth twice daily. Start 1 week before ablation & continue for 30 days after ablation. Active oxyCODONE/acetaminophen Take 1 tablet 0 (PERCOCET; ENDOCET; by mouth ROXICET) 5/325 mg tablet every 4 hours as needed for Pain Active sucralfate (CARAFATE) 1 Take one 60 tablet 0 gram tablet tablet by 9 mouth twice daily. Take on an empty stomach. Active Problems Problem Noted Date Paroxysmal atrial fibrillation 06/12/2019 Acute pericarditis 06/03/2019 STEPH (acute kidney injury) 06/03/2019 Chest pain on breathing 05/30/2019 Essential hypertension 12/14/2018 Hyperlipidemia 12/14/2018 S/P ablation of atrial fibrillation 12/14/2018 Overview: 08/05/18 [facility] - ED pre sented with palpitations, dyspnea, chest pain, "foing to pass out". SVT v s AF rate 220 - 250 bpm. given lopressor 5 mg IVP. negative cardiac enzymes. 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" and to f/u with PCP Encounters Care Team Description Date Type Specialty 01/17/2020 Travel Ya Howard, GORDO Follow-up Phone Call (returned call, lm to c/b) 01/05/2020 Telephone Cardiology Ya Howard RN 11/09/2019 Telephone Cardiology Rafia Snyder RN Other (Cardiac Rehab Referral) 11/07/2019 Telephone Cardiology Rafia Snyder RN Follow Up (left before being seen 020) 10/18/2019 Telephone Cardiology from Last 3 Months Family History Medical History Relation Name Comments Cancer Father Cancer Mother Relation Name Status Comments Father Mother Social History Date Tobacco Use Types Packs/Day Years Used Quit: 1979 Former Smoker Cigarettes Smokeless Tobacco: Never Used Drinks/Week oz/Week Comments Alcohol Use No Sex Assigned at Date Recorded Not on file Industry Job Start Date Occupation Not on file Not on file Not on file Travel End Travel History Travel Start No recent travel history available. Date Recorded COVID-19 Exposure Response 01/17/2020 6:42 PM CDT In the last month, have you been in contact with No / Unsure someone who was confirmed or suspected to have Coronavirus / COVID-19? 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 needed 05/26/2019 7:02 PM Full Code 05/25/2019 6:03 AM Provider has discussed Code Status No, more discussi on w/Patient or Family? needed 02/13/2011 7:21 PM Full Code 02/03/2011 4:36 AM Provider has discussed Code Status Yes w/Patient or Family?
--- OUTSIDE RECORDS SUMMARY | 2020-01-17 18:57 | XMS REPORT | Encounter Summary ---
Author Author [facility] Organization [facility] Address Unknown Phone Unavailable Care Team Providers Care Uniform Force Captain Name Role Phone Sherman Spicer MD Unavailable Reyna Bond Unavailable Unavailable Indiana Bauer APRN PCP Unavailable Encounter Details Care Team Description Date Type Department 01/17/2020 Travel Social History Date Tobacco Use Types Packs/Day [...] or suspected to have Coronavirus / COVID-19? documented as of this encounter Functional Status Date of Assessment Functional Status Response 05/30/2019 Does the patient have a hearing impairment: No documented as of this encounter Plan of Treatment Not on filedocumented as of this encounter Goals Goal Patient Associated Recent Progress Patient-Stat Aut hor Goal Type Problems ed? Take Medication at Right Time, Medication No Lind, Right Day, Right Order, With Adherence Danilo Moseley N or Without Food Correctly documented as of this encounter Visit Diagnoses Not on filedocumented in this encounter
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
--- OUTSIDE RECORDS SUMMARY | 2020-01-17 18:57 | XMS REPORT | Encounter Summary ---
Author Author [facility] Organization [facility] Address Unknown Phone Unavailable Care Team Providers Care Window And Door Installer Name Role Phone Sherman Spicer MD Unavailable Reyna Bond Unavailable Unavailable Indiana Bauer APRN PCP Unavailable Encounter Details Care Team Description Date Type Department Ya Howard RN 08/08/2019 Telephone [facility] [address] [place] [address] Social History Date Tobacco Use Types Packs/Day Years Used Quit: 1979 Former Smoker Cigarettes Smokeless Tobacco: Never Used Drinks/Week oz/Week Comments Alcohol Use No Sex Assigned at Date Recorded Not on file Industry Job Start Date Occupation Not on file Not on file Not on file Travel End Travel History Travel Start No recent travel history available. documented as of this encounter Functional Status Date of Assessment Functional Status Response 05/30/2019 Does the patient have a hearing impairment: No documented as of this encounter Miscellaneous Notes * Telephone Encounter - Ya Howard RN - 08/08/2019 3:05 PM OIL TESTER fax number reported to: [phone] and he read back number states he has an appt tomorrow and will give the fax number to the dental office TESTER * Telephone Encounter - Ya Howard RN - 08/08/2019 3:04 PM OIL TESTER ----- Message from Mercy Carbajal LPN sent at 08/08/2019 10:32 AM OIL TESTER ----- Regarding: MPE- fax # VM from patient on triage line. He is to see dentists tomorrow and we gave him our fax # and he lost it. Could we call # [phone] and leave it on his new secure VM. If we talk to him, ask him what # this is, home or cell. TESTER documented in this encounter Plan of Treatment Not on [...]
--- OUTSIDE RECORDS SUMMARY | 2020-01-17 18:57 | XMS REPORT | Encounter Summary ---
Author Author [facility] Organization [facility] Address Unknown Phone Unavailable Care Team Providers Care Cleaner And Dyer Name Role Phone Sherman Spicer MD Unavailable Reyna Bond Unavailable Unavailable Indiana Bauer APRN PCP Unavailable Reason for Visit * Reason Comments Cardiac Clearance full mouth teeth extraction Encounter Details Care Team Description Date Type Department Rafia Snyder RN Cardiac Clearance (full mouth teeth extr action ) 09/26/2019 Telephone [address] [id number] Social History Date Tobacco Use Types Packs/Day [...] encounter Miscellaneous Notes * Telephone Encounter - Rafia Snyder RN - 09/26/2019 8:49 AM PIPE TESTING TECHNICIAN RN called [facility] fax [phone]) after provider signed surgery risk assessment form that was faxed to [facility] on 09/21/2019. RN was informed by GORDO Reza that patient has cancelled his proce dure scheduled for 09/27/2019 and has not rescheduled. Libia asked that RN go arlette bee and fax surgery risk assessment form to [facility] so that if needed they can forward on cardiac assessment to Dr. Colon[facility]. RN to fax cardiac assessment and recommendation form to provided fax jean-pierre norwood [phone]. Patient scheduled for full mouth teeth extraction with general a nesthesia on 09/27/2019. Per provider patient is low risk, although patient is at risk for post operative AFib and operating physician will need to manage if it o ccurs. Provider requested pre op and post op EKGs. Per provider patient at low r isk to hold Eliquis for 3 days before surgery and to resume SONAM after surgery. RN will have cardiac assessment form scanned into patient EMR. Will remain avail able. GORDO Jackson. Dr. Yasir Colon (dentist) [facility] Of [address] [id number] [facility], [address] [address] TESTING TECHNICIAN documented in this encounter Plan of Treatment [...]
--- OUTSIDE RECORDS SUMMARY | 2020-01-17 18:57 | XMS REPORT | Encounter Summary ---
Author Author [facility] Organization [facility] Address Unknown Phone Unavailable Care Team Providers Care Regulatory Affairs Consultant Name Role Phone Sherman Spicer MD Unavailable Reyna Bond Unavailable Unavailable Indiana Bauer APRN PCP Unavailable Encounter Details Care Team Description Date Type Department Ya Howard, RN 07/21/2019 Telephone [facility] [address] [place] [address] Social History Date Tobacco Use [...] Telephone Encounter - Ya Howard RN - 08/01/2019 10:53 AM HEADER SET UP OPERATOR multiple attempts to reach David to discuss below re:dental appt phone not in working order note in chart states best time to call is from 11 am to 2 pm however, have not b een able to reach David at these times per chart CTA procedures nurses are attempting to call him to schedule post abl ation ccta ER SET UP OPERATOR * Telephone Encounter - Ya Howard RN - 07/21/2019 11:12 AM CDT [id number] = 1 (htn) 05/25/19 LAAA using cryotherapy post op pericarditis treated with colchicine and ibuprofen currently on eliquis procedure: dental extraction of 3 teeth per patient - "will need to put him under to do it" no information has been received from dental office at this time - attempted to call David back at 11:19 am however, phone says the number listed is not a working number * Telephone Encounter - Ya Howard RN - 07/21/2019 11:12 AM CDT ----- Message from Mercy Carbajal LPN sent at 07/21/2019 8:19 AM CDT ----- Regarding: MPE- RTC VM from patient on triage line at 6:51pm last night returning our call. Said that he did not get to the phone in time. He has 3 teeth that need to be extracted and they are going to have to put him u nder to do it. Said that he would need to hold Eliquis. Good time to call back is 11 or 1pm. documented in this encounter Plan of Treatment [...]
--- OUTSIDE RECORDS SUMMARY | 2020-01-17 18:57 | XMS REPORT | Encounter Summary ---
Author Author [facility] Organization [facility] Address Unknown Phone Unavailable Care Team Providers Care Spinning Lathe Operator Hydraulic Name Role Phone Sherman Spicer MD Unavailable Reyna Bond Unavailable Unavailable Indiana Bauer APRN PCP Unavailable Encounter Details Care Team Description Date Type Department Ya Howard, RN 11/09/[address] [facility] [address] [place] [address] Social History Date Tobacco Use [...] Telephone Encounter - Ya Howard RN - 11/09/2019 11:33 AM MULTIMEDIA DESIGNER returned call to David he just had a return call from the anesthesia - told him he was a difficult i ntubation. he was also told that this is all part of the healing process having difficulty swallowing but is forcing himself to drink water now asked about his heart racing, did last night but feels it is not racing now had been told they pulled 31 teeth yesterday he was unable to sleep last night. does have pain medication and plans to sleep this afternoon, advised to keep hyd rated he will c/b the dental office if further questions IMEDIA DESIGNER * Telephone Encounter - Ya Howard RN - 11/09/2019 11:32 AM MULTIMEDIA DESIGNER ----- Message from Mercy Carbajal LPN sent at 11/09/2019 11:17 AM MULTIMEDIA DESIGNER ----- Regarding: MPE- cp and dizzy VM from patient on triage line. Said that he was given Anesthesia yesterday to pull all his teeth. Last night his heart pounded and today he has headache, chest pain ant is lighth eaded, dizzy. Should he to to the ED or see if it gets better?Could it be from the anesthesia? He has new # [phone]. IMEDIA DESIGNER documented in this encounter Plan of Treatment [...]
--- OUTSIDE RECORDS SUMMARY | 2020-01-17 18:57 | XMS REPORT | Encounter Summary ---
Author Author [facility] Organization [facility] Address Unknown Phone Unavailable Care Team Providers Care Sweep Press Operator Name Role Phone Sherman Spicer MD Unavailable Reyna Bond Unavailable Unavailable Indiana Bauer APRN PCP Unavailable Reason for Visit * Reason Comments Medication Question About multiple attempts to c/b, does NOT return calls Anticoagulation Therapy Encounter Details Care Team Description Date Type Department Ya Howard RN Medication Question About Anticoagulatio n Therapy (multiple attempts to c/b, does NOT return calls) 08/03/2019 Telephone The [facility] [address] [place] [facility] [place] [address] Social History Date Tobacco Use Types [...] encounter Miscellaneous Notes * Telephone Encounter - Cecy He RN - 08/03/2019 4:10 PM MARKET RISK MANAGER Mercy Carbajal LPN P Cvm Nurse Yousif NEGRETE from patient on triage line returning our call. Said that he is having all his teeth cut out and they would like to know how antony g he can hold Eliquis. Call back at # [phone]. I called patient back to discuss. I asked that patient have the dental office fax us a form next week when he meet s with them for the first time next week. Patient is agreeable with no further concerns or questions. ET RISK MANAGER * Telephone Encounter - Ya Howard RN - 08/03/2019 3:23 PM MARKET RISK MANAGER see chart regarding numerous calls regarding his dental procedures. I have made numerous attempts to reach David however, he does NOT answer return c alls to him I've left message that more information is needed 1. Where he is having the dental procedure 2. Is this a single extraction 3. He can have the dentist office fax information to us On message today, I said we can not assist him unless he answers our return call s. ET RISK MANAGER * Telephone Encounter - Ya Howard RN - 08/03/2019 3:23 PM MARKET RISK MANAGER ----- Message from Mercy Carbajal LPN sent at 08/03/2019 3:13 PM MARKET RISK MANAGER ----- Regarding: MPE- hold Eliquis VM from patient on triage line. He needs to have tooth extraction and needs to know if he can hold Eliquis, if s o how long. Needs to know this week. Said to call back at # [phone]. ET RISK MANAGER documented in this encounter Plan of Treatment [...]
--- OUTSIDE RECORDS SUMMARY | 2020-01-17 18:57 | XMS REPORT | Encounter Summary ---
Author Author [facility] Organization [facility] Address Unknown Phone Unavailable Care Team Providers Care Pig Farmer Name Role Phone Sherman Spicer MD Unavailable Reyna Bond Unavailable Unavailable Indiana Bauer APRN PCP Unavailable Reason for Visit * Reason Comments Follow Up question regarding dental w ork Encounter Details Care Team Description Date Type Department Rafia Snyder RN Follow Up (question regarding dental wor k ) 08/10/2019 Telephone The [address] [place] [address] Social History Date Tobacco Use Types Packs/Day [...] Telephone Encounter - Ya Howard RN - 09/21/2019 2:44 PM NEUROSURGICAL NURSE PRACTITIONER returned call to [facility] for Dr Colon as noted below [facility] form in Rafia Snyder/Dr Rodriguez's right f ax folder at this time [facility] states David is going to have general anesthesia for full mouth extraction on 09/27/19 He will NOT need to hold his anticoagulation for this procedure However, anesthesia and Dr Colon are requesting the surgery risk assessment f orm to be completed. will require Dr Rodriguez's signature OSURGICAL NURSE PRACTITIONER * Telephone Encounter - Ya Howard RN - 09/21/2019 2:44 PM NEUROSURGICAL NURSE PRACTITIONER MPE- CC Received: Today Message Contents Mercy Carbajal LPN P Cvm Nurse Ep PENELOPE from [facility] with [facility] # [phone]. Said that he is scheduled for full mouth tooth extraction on 09-27-19 under genera l anesthetic with Dr. Colon. He needs cardiac clearance. She needs us to call back with our fax # so she can get form to us. OSURGICAL NURSE PRACTITIONER * Telephone Encounter - Rafia Snyder RN - 08/10/2019 1:38 PM NEUROSURGICAL NURSE PRACTITIONER RN returning call to patient to address questions. Patient expressed that he is very concerned and nervous about upcoming dental work scheduled for after Thanks giving. Patient stated that he initially saw dentist yesterday 08/09/19 for eval uation. Patient repeatedly expressed concern stating that the dentist did not se em to be concerned that patient was taking blood thinner. RN attempted to reassu re patient and stated that RN would reach out to dentist to speak with them abou t blood thinner. Patient provided contact information for dentist (below). Ramiro carroll verbalizes understanding and is agreeable to plan. Patient has no further que stions or concerns at this time. Patient requesting call from either EP office o r dental office confirming that patient is okay to take blood thinner as prescri bed even with upcoming oral surgery. RN reached out to dental office and [facility] req uesting call back. RN spoke with fellow EP RN who stated that it is left up to t he dentist/oral surgeon as to if blood thinner is held or not, and if it is held then EP physician would be consulted. Will remain available. GORDO Guillaume Dr. (dentist) [facility] [address] [address] ----- Message from Mercy Carbajal LPN sent at 08/10/2019 11:33 AM NEUROSURGICAL NURSE PRACTITIONER ----- Regarding: MPE- dental ? VM from patient on triage line. Said that he is going for dental work and has a question. Call back at # [phone]. OSURGICAL NURSE PRACTITIONER documented in this encounter Plan of Treatment [...]
--- OUTSIDE RECORDS SUMMARY | 2020-01-17 18:57 | XMS REPORT | Encounter Summary ---
Author Author [facility] Organization [facility] Address Unknown Phone Unavailable Care Team Providers Care Security Alarm Installer Name Role Phone Sherman Spicer MD Unavailable Reyna Bond Unavailable Unavailable Indiana Bauer APRN PCP Unavailable Reason for Visit * Reason Comments Other all phone numbers on pts ch art not in working order- Letter sent to pt re: office visit on Oct 16 w/ Dr. Rodriguez and post ablton CTA instructions sent to pt- Asked pt to call office and give up dated phone number. carrie stone RN Encounter Details Care Team Description Date Type Department Libertad Stone RN Other (all phone numbers on pts chart no t in working order- Letter sent to pt re: office visit on Oct 16 w/ Dr. Rodriguez and post ablton CTA instructions sent to pt- Asked pt to call office and give up dated phone number. carrie stone RN) 07/26/2019 Documentation [facility] [address] [address] Social History Date Tobacco Use Types Packs/Day [...] Take Medication at Right Time, Medication No Ilnd, Right Day, Right Order, With Adherence Danilo Moseley N or Without Food Correctly documented as of this encounter Visit Diagnoses Not on filedocumented in this encounter
--- OUTSIDE RECORDS SUMMARY | 2020-01-17 18:57 | XMS REPORT | Encounter Summary ---
Author Author [facility] Organization [facility] Address Unknown Phone Unavailable Care Team Providers Care Metal Wire Technician Name Role Phone Sherman Spicer MD Unavailable Reyna Bond Unavailable Unavailable Indiana Bauer APRN PCP Unavailable Reason for Visit * Reason Comments Follow Up left before being seen 10/16 Encounter Details Care Team Description Date Type Department Rafia Snyder RN Follow Up (left before being seen 020) 10/18/[address] [place] [address] Social History Date Tobacco Use Types Packs/Day [...] Telephone Encounter - Rafia Snyder RN - 10/30/2019 12:59 PM MANAGEMENT DEVELOPMENT SPECIALIST RN reaching out to patient informing him that we do not have an avenue where we could get him a discounted or free blood pressure cuff. RN offered to order bloo d pressure cuff for patient and if he went to pick it up and it was too expensiv e, that RN would work on finding another route to get patient a home blood press ure cuff. RN to also inform patient that patient can go to [facility] and usually they have a blood pressure monitoring station and patient can do that 2-3 times per week. RN called and was able to LVM informing patient of above. Will remain available. GORDO Jackson. Constantine Perry RN You 3 days ago Short answer: no we do not. Long answer: The BP monitor we have is only available for female pts as this is sponsored by [employer]. Unfortunately he will not qualify for it. Digital BP m onitors range from $50-90. I am not aware of a company that sells refurbished BP either. This is not identified as a DME so unfortunately, insurance will not co oziel this. Regarding cardiac rehab, I reviewed his history but I didn't see a qualifying dx for cardiac rehab. No recent NC, stents, valve repairs, or EF <35. Let me know if you have any questions. Thank you, -AL Routing comment You Constantine Perry RN 3 days ago Do we know where a patient could get a discounted or free blood pressure cuff to use at home? Routing comment GEMENT DEVELOPMENT SPECIALIST * Addendum Note - Alejandra Greene RN - 10/26/2019 10:30 AM MANAGEMENT DEVELOPMENT SPECIALIST Addended by: ALEJANDRA GREENE on: 10/26/2019 10:30 AM Modules accepted: Orders GEMENT DEVELOPMENT SPECIALIST * Telephone Encounter - Alejandra Greene RN - 10/26/2019 10:04 AM MANAGEMENT DEVELOPMENT SPECIALIST MPE- monitor Received: Today Call patient Message Contents Mercy Carbajal LPN P Cvm Nurse Yousif NEGRETE from patient on triage line at 4:49pm yesterday. Said that we were going to try and get b/p and pulse monitor for him. Any luck in finding them? He is at # [phone]. 10/26/2019 10:04 AM: Pt is asking for a referral to cardiac rehab at [facility]. I informed him that there are certain diagnoses that a pt must have in order to qualify but that we could ask MPE. He is also asking if we found anyth ing out about getting him a free BP cuff. I told him I was not aware of a way to get him a free BP cuff. He said that Rafia told him she would check on a program. I will follow up with Rafia on this. Pt also talked to 20 mins about his frustration with Lacie Zaragoza and Fahad. I li stened to his frustrations. GEMENT DEVELOPMENT SPECIALIST * Telephone Encounter - Rafia Snyder RN - 10/18/2019 1:34 PM MANAGEMENT DEVELOPMENT SPECIALIST RN called number listed in chart for patient ([phone]) and mobile number li sted for son of patient (Kota [phone]) were both disconnected. RN attempt ed to call home number listed for son (Kota [phone]) and that number was also disconnected. RN called [facility] and spoke with GORDO Og wh o stated that patient is on the schedule for procedure (full mouth extraction) o n 10/25/2019. RN informed Lenka that patient did not necessarily need to be seen b y MPE before procedure but that RN needed to speak with patient. Lenka provided phone number for the patient that RN had already attempted ([phone]) which is disconnected. RN to send letter to patient requesting that he contact our off ice [facility] to discuss potential discontinuation of Eliquis and possibly initiation of Lisinopril. Lenka was provided EP refrigeration specialist Line phone number and had no fur ther questions at this time. RN will send no contact letter to patient address o n file. Will remain available. GORDO Jackson. ----- Message from Cecy He RN sent at 10/17/2019 7:29 AM MANAGEMENT DEVELOPMENT SPECIALIST ----- Regarding: call patient? Per his recommendations "Assuming he has not had any recurrent atrial fibrillation that he is aware of, THEN, REGARDING HIS PREOP EVALUATION ... He is at a low/acceptable CV risk for his upcoming surgery. Regarding anticoagulation: Given a chads vas score of 1, w the fact that he is post ablation without recurrent A. fib, and again assuming he has not had any r ecurrent atrial fibrillation, then we will discontinue his Eliquis. Therefore h e will not be on Eliquis at the [...] monitor his pulse closely for any recurrent events." MPE- CC Received: Today Message Contents Mercy Carbajal LPN P Cvm Nurse Yousif NEGRETE on triage line from Lenka with [facility] # [phone]. Said that they are just now going to do surgery and had CC from us but patient t old them that he had test with dye. Anesthesia would like results of test and new CC faxed to them at # [phone] . Said that they had faxed form to us on 10-10-19. 10/18/2019 1434 - RN called phone number provided by GORDO Og with [facility]. Phone number provided for patient was [phone]. RN was able to s peak with patient who stated that he has not been able to afford a home blood pr essure machine and has a difficult time checking is pulse on his own. Patient st ated that he did not feel like he had any episodes of AFib since his ablation, a nd patient stated that he has been doing really good. RN informed patient that p er MPE he can stop Eliquis. Patient v/u that there is still a risk for stroke, b ut it is a very small risk (~2%). RN encouraged patient to keep whatever remaini ng Eliquis he has. Patient v/u. RN informed patient that RN would be contacting physician office where patient is to have a full mouth extraction to inform them of patient clearance for procedure. Patient verbalizes understanding and is agr eeable to plan. Patient has no further questions or concerns at this time. RN to have MPE sign u pdated cardiac authorization/recommendation (clearance) and will fax to [facility]. Will remain available. GORDO Jackson. MPE- RTC for Rafia Received: Today Message Contents Mercy Carbajal LPN P Cvm Nurse Yousif NEGRETE from Lenka with [facility] # [phone] returning our call. Said that they have phone # [phone] for patient and she called and got VM. She left message that we are trying to get a hold of him. GEMENT DEVELOPMENT SPECIALIST documented in this encounter Plan of Treatment [...]
--- OUTSIDE RECORDS SUMMARY | 2020-01-17 18:57 | XMS REPORT | Encounter Summary ---
Author Author [facility] Organization [facility] Address Unknown Phone Unavailable Care Team Providers Care Manufacturing Engineer Supervisor Name Role Phone Sherman Spicer MD Unavailable Reyna Bond Unavailable Unavailable Indiana Bauer APRN PCP Unavailable Reason for Visit * Reason Comments Appointment Request unable to return call, numb er is not working. letter mailed on to address appt question Encounter Details Care Team Description Date Type Department Ya Howard RN Appointment Request (unable to return ca ll, number is not working. letter mailed on to address appt question) 08/24/2019 Telephone [facility] [address] [place] [address] Social History Date Tobacco Use Types Packs/Day [...] Telephone Encounter - Ya Howard RN - 08/24/2019 9:52 AM HEALTH CARE COORDINATOR ----- Message from Allie Ann RN sent at 08/24/2019 9:30 AM HEALTH CARE COORDINATOR ----- Regarding: MPE patient Contact: Received a letter he has two appointments and wants to confirm that he actually needs to come to both. TH CARE COORDINATOR documented in this encounter Plan of Treatment [...]
--- OUTSIDE RECORDS SUMMARY | 2020-01-17 18:57 | XMS REPORT | Encounter Summary ---
Author Author [facility] Organization [facility] Address Unknown Phone Unavailable Care Team Providers Care Auto Radiator Mechanic Name Role Phone Sherman Spicer MD Unavailable Reyna Bond Unavailable Unavailable Indiana Bauer APRN PCP Unavailable Reason for Visit * Reason Comments Other post ablaiton CTA requested Encounter Details Care Team Description Date Type Department Libertad Monson RN Other (post ablaiton CTA requested) 07/25/2019 Telephone The [facility] [address] [address] Social History Date Tobacco Use [...] encounter Miscellaneous Notes * Telephone Encounter - Libertad Monson RN - 07/25/2019 2:09 PM MULTIMEDIA DEVELOPER ----- Message from Beny Paredes RN sent at 04/25/2019 7:58 AM CDT ----- Regarding: need 3 month post-AF ablation CCTA Patient s/p AF ablation on 05/25 w/ MPE. Need 3 month post-AF ablation CCTA. IMEDIA DEVELOPER documented in this encounter Plan of [...]
--- OUTSIDE RECORDS SUMMARY | 2020-01-17 18:57 | XMS REPORT | Encounter Summary ---
Author Author [facility] Organization [facility] Address Unknown Phone Unavailable Care Team Providers Care Bracelet Former Name Role Phone Sherman Spicer MD Unavailable Reyna Bond Unavailable Unavailable Indiana Bauer APRN PCP Unavailable Reason for Visit * Reason Comments Other post ablation ct canceled i nsurance denied Encounter Details Care Team Description Date Type Department Sally Rendon RN Other (post ablation ct canceled insuran ce denied) 10/13/2019 Telephone The [facility] [address] [address] Social History Date Tobacco Use [...] encounter Miscellaneous Notes * Telephone Encounter - Sally Rendon RN - 10/13/2019 7:51 AM EARTH OBSERVATIONS CHIEF SCIENTIST ----- Message from Rafia Snyder RN sent at 10/12/2019 3:36 PM EARTH OBSERVATIONS CHIEF SCIENTIST ----- Regarding: RE: CTA denied MPE does not want to pursue CCTA. ----- Message ----- From: Sally Rendon RN Sent: 10/12/2019 2:39 PM EARTH OBSERVATIONS CHIEF SCIENTIST To: Rafia Snyder RN Subject: RE: CTA denied They just said insurance would not cover it?? ----- Message ----- From: Rafia Snyder RN Sent: 10/12/2019 1:48 PM EARTH OBSERVATIONS CHIEF SCIENTIST To: Sally Rendon RN Subject: RE: CTA denied Yes, his CT is for post ablation. I will review with MPE and get back to you. An y particular reason CT was denied? ----- Message ----- From: Cecy He RN Sent: 10/12/2019 1:20 PM EARTH OBSERVATIONS CHIEF SCIENTIST To: Rafia Snyder RN Subject: FW: CTA denied ----- Message ----- From: Sally Rendon RN Sent: 10/12/2019 12:39 PM EARTH OBSERVATIONS CHIEF SCIENTIST To: Cv Nurse Ep Subject: CTA denied Just wanted to let you know insurance denied ct. Looks like pre cert was contac terri FC. I see that he is post ablation, does he need ct? Pt is coming 10/16 Mo nday for OV and ct H OBSERVATIONS CHIEF SCIENTIST documented in this encounter Plan of Treatment [...]
--- OUTSIDE RECORDS SUMMARY | 2020-01-17 18:57 | XMS REPORT | Encounter Summary ---
Author Author [facility] Organization [facility] Address Unknown Phone Unavailable Care Team Providers Care Spud Driller Name Role Phone Sherman Spicer MD Unavailable Reyna Bond Unavailable Unavailable Indiana Bauer APRN PCP Unavailable Reason for Visit * Reason Comments Other Cardiac Rehab Referral Encounter Details Care Team Description Date Type Department Rafia Snyder RN Other (Cardiac Rehab Referral) 11/07/[address] [facility] [address] [place], [place] [id number] Social History Date Tobacco Use Types Packs/Day [...] Telephone Encounter - Rafia Snyder RN - 11/07/2019 4:41 PM BOAT RIGGER RN verifying that patient qualifies for cardiac rehab before calling patient dede k. Patient can also call insurance to see if he would qualify for cardiac rehab. RN called provided call back number ([phone]) and was able to LVM informing patient of the above. RN left call back number in message. Will remain availab leZarina Jackson RN. ----- Message ----- From: Mercy Carbajal LPN Sent: 11/06/2019 8:18 AM BOAT RIGGER To: Cvm Nurse Yousif Subject: MPE- referral VM from patient on triage line Wednesday at 6:10pm. He wanted to know if we had chance to see if MPE would do the heart rehab referr al for him. Call back at # [phone]. 2019 1337 - RN returning call to patient to inform him that he would need t o call rehab center first to see if he qualifies for cardiac rehab. RN attempted to contact patient twice ([phone] both times and both times received the p rompt that the subscriber is no longer in service. Will remain available. Arturo meeks RN. MPE- RTC Received: Today Call patient Message Contents Mercy Carbajal LPN P Cvm Nurse Yousif NEGRETE from patient on triage line at 5:48pm yesterday returning our call. Should he call Rehab center or do we need to send referral first? Call him back at # [phone]. RIGGER documented in this encounter Plan of Treatment [...]
--- OUTSIDE RECORDS SUMMARY | 2020-01-17 18:57 | XMS REPORT | Encounter Summary ---
Author Author [facility] Organization [facility] Address Unknown Phone Unavailable Care Team Providers Care Thermal Engineer Name Role Phone Sherman Spicer MD Unavailable Reyna Bond Unavailable Unavailable Indiana Bauer APRN PCP Unavailable Reason for Visit * Reason Comments Appointment Request questions re:f/u appt Encounter Details Care Team Description Date Type Department Ya Howard RN Appointment Request (questions re:f/u ap pt) 08/22/2019 Telephone The [facility] [address] [place] [address] Social History Date Tobacco Use [...] Telephone Encounter - Ya Howard RN - 08/22/2019 12:57 PM HEALTH CARE FACILITY ADMINISTRATOR 2/6 appt has been cancelled. asked MARGARITA Ludwig program scheduler to give him a call and clarify TH CARE FACILITY ADMINISTRATOR * Telephone Encounter - Ya Howard RN - 08/22/2019 12:57 PM HEALTH CARE FACILITY ADMINISTRATOR ----- Message from Mercy Carbajal LPN sent at 08/22/2019 11:03 AM HEALTH CARE FACILITY ADMINISTRATOR ----- Regarding: MPE- appt ? VM from patient on triage line. He has sheet of paper that says that he has appointment on 10-16-19 at 10:30 am a nd 10-26-19 at 10:30am. Does he need both of them? He has to make ride arrangements. Call back at # [phone]. TH CARE FACILITY ADMINISTRATOR documented in this encounter Plan of Treatment [...]
--- OUTSIDE RECORDS SUMMARY | 2020-01-17 18:57 | XMS REPORT | Encounter Summary ---
Author Author [facility] Organization [facility] Address Unknown Phone Unavailable Care Team Providers Care Prospecting Observer Name Role Phone Sherman Spicer MD Unavailable Reyna Bond Unavailable Unavailable Indiana Bauer APRN PCP Unavailable Reason for Referral * CTA Procedure (Routine) Referred By Contact Referred To Contact Status Reason Specialty Diagnoses / Procedures Kelby Rodriguez MD [address] [address] [address] New Request Radiology Diagnoses S/P ablation of atrial fibrillation Paroxysmal atrial fibrillation (HCC) Essential hypertension Acute pericarditis, unspecified type P rocedures CT CARDIAC STRUCTURE WO/W CONT * CTA Procedure (Routine) Referred By Contact Referred To Contact Status Reason Specialty Diagnoses / Procedures Kelby Rodriguez MD [address] [address] New Request Radiology Diagnoses S/P ablation of atrial fibrillation Paroxysmal atrial fibrillation (HCC) Essential hypertension Acute pericarditis, unspecified type P rocedures CT LMTD CHEST W CARDIAC Encounter Details Care Team Description Date Type Department Ya Howard RN 10/11/2019 Telephone [facility] [address] [place] [id number] Social History Date Tobacco Use Types Packs/Day [...] as of this encounter Miscellaneous Notes * Addendum Note - Rafia Snyder RN - 10/12/2019 2:48 PM HAND WOOD SANDER Addended by: RFAIA SNYDER on: 10/12/2019 02:48 PM Modules accepted: Orders WOOD SANDER * Telephone Encounter - Rafia Snyder RN - 10/12/2019 2:46 PM HAND WOOD SANDER RN received notification from pre certification that 3 month post ablation CCTA denied. RN reordered CCTA with appropriate diagnoses associated. RN to reach dede k out to pre certification team to verify that CCTA will be covered/is still pedro eduled for 10/16/2019. Will remain available. GORDO Jackson. WOOD SANDER * Telephone Encounter - Ya Howard RN - 10/11/2019 3:52 PM HAND WOOD SANDER returned call to David. left message that he should be done around 1 pm however, did stress that this is an estimate. offered that we could call his ride when he is close to finishing if that would help asked him to cb if further questions WOOD SANDER * Telephone Encounter - Ya Howard RN - 10/11/2019 3:52 PM HAND WOOD SANDER ----- Message from Mercy Carbajal LPN sent at 10/11/2019 12:27 PM HAND WOOD SANDER ----- Regarding: MPE- RTC- he wanted to know how long his appointment will take on Wed. He is having to get a ride and needs to know. He is at # [phone]. WOOD SANDER documented in this encounter Plan of Treatment Order Schedule Name Type Priority Associated Diag noses Expected: 10/12/2019 (Approximate), Expi res: 10/12/2020 CT LMTD CHEST W CARDIAC Imaging Routine S/P ab lation of atrial fibrillation Paroxysmal atrial fibrillation (HCC) Essential hypertension Acute pericarditis, unspecified type Expected: 10/12/2019 (Approximate), Expi res: 10/12/2020 CT CARDIAC STRUCTURE WO/W Imaging Routine S/P ablation of atrial CONT fibrillation Paroxysmal atrial fibrillation (HCC) Essential hypertension Acute pericarditis, unspecified type documented as of this encounter Goals Goal Patient Associated Recent Progress Patient-Stat Aut hor Goal Type Problems ed? Take Medication at Right Time, Medication No Lind, Right Day, Right Order, With Adherence Danilo Moseley N or Without Food Correctly documented as of this encounter Visit Diagnoses Diagnosis S/P ablation of atrial fibrillation Other postprocedural status Paroxysmal atrial fibrillation (HCC) Atrial fibrillation Essential hypertension Unspecified essential hypertension Acute pericarditis, unspecified type documented in this encounter
--- OUTSIDE RECORDS SUMMARY | 2020-01-17 18:57 | XMS REPORT | Encounter Summary ---
Author Author [facility] Organization [facility] Address Unknown Phone Unavailable Care Team Providers Care International Marketing Specialist Name Role Phone Sherman Spicer MD Unavailable Reyna Bond Unavailable Unavailable Indiana Bauer APRN PCP Unavailable Reason for Visit * Reason Comments Follow-up Phone Call returned call, lm to c/b Encounter Details Care Team Description Date Type Department Ya Howard RN Follow-up Phone Call (returned call, to c/b) 01/05/[address] [place] [address] Social History Date Tobacco Use Types Packs/Day [...] Telephone Encounter - Ya Howard RN - 01/05/2020 4:19 PM CDT unable to connect with Mr Rice today. left message and asked him to c/b if he has further questions * Telephone Encounter - Ya Howard RN - 01/05/2020 4:18 PM CDT ----- Message from Mercy Carbajal LPN sent at 01/05/2020 12:40 PM CDT ----- Regarding: MPE- he is ok, just has a heart question. Call him at #[phone]. documented in this encounter Plan of Treatment [...]
--- OUTSIDE RECORDS SUMMARY | 2020-01-17 19:04 | XMS REPORT ---
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 Active 79377296 Problem History of atrial flutter Z86.79 Acti ve 258904389 Problem Portal vein thrombosis I81 Active 66451234 Problem Chronic pain syndrome G89.4 Active 78809401 Problem Severe major depression with psychotic features F3 2.3 Active 33734421 Problem Mass of sinus R22.0 Active 976649 7 Problem Other chronic pain G89.29 Active 8 8421920 Problem Gastroesophageal reflux disease, esophagitis pre sence not specified K21.9 Active 840142876 Problem Urinary hesitancy R39.11 Active 59 39290 Problem Acute non-recurrent frontal sinusitis J01.10 Active 48698028 Problem Major depressive disorder, recurrent, moderate F33 .1 Active 60639746 Problem Diverticulitis K57.92 Active 35531 6006 Problem Posttraumatic stress disorder F43.10 Active 27683804 Problem Elevated platelet count D47.3 Active 335722611 Problem Chronic hepatitis C without hepatic coma B18.2 Active 877470830 Problem Acquired hypothyroidism E03.9 Active 582419645 Problem Sleep disorder G47.9 Active 80756 005 ALLERGIES No Information ENCOUNTERS Encounter Location Date Diagnosis [facility] [address] [id number] [place] [address] Dec, Mouth pain K13.79 and Nausea R11.0 [facility] [address] [id number] [place] [address] Dec, OUTREACH [address] [place] [address] Dec, [address] 340B [id number] [place] [address] 14 Dec, 2019 Chronic pain syndrome G89.4 and Posttraumatic stress disorder F43.10 [facility] [address] 340B [id number] [place] [address] 13 Dec, 2019 Chronic pain syndrome G89.4 and Posttraumatic stress disorder F43.10 [facility] JADIEL [address] 340B [id number] [place] [address] 13 Dec, [address] [id number] [place] [address] 31 Nov, [address] 340[address] [id number] [address] 19 Nov, 2019 Chronic pain syndrome G89.4 and Posttraumatic stress disorder F43.[address] [id number] [address] 17 Nov, 2019 [facility] [address] [id number] [address] [place] [address] [id number] 24 Oct, 2019 [facility] [address] [id number] [address] [place] [address] [id number] Oct, [facility] [address] [place] [address] Oct, Caries K02.9 [facility] [address] [id number] [place] [address] 18 Oct, [address] [id number] [address] 18 Oct, 2019 Chronic pain syndrome G89.4 and Posttraumatic stress disorder F43.10 [address] [id number] [address] 18 Oct, [address] [id number] [place] [address] 14 Oct, 2019 Chronic pain syndrome G89.4 and Posttraumatic stress disorder F43.10 [facility] [address] [id number] [address] [place] [id number] Oct, [address] 340 [id number] [address] Sep, Epigastric abdominal pain R1 0.13 ; Diverticulitis K57.92 and Viral upper respiratory tract infection J06.[address] 340B [id number] [address] Sep, Posttraumatic stress disorde r F43.[address] 340[address] [id number] [address] Sep, Chronic pain syndrome G89.4 and Posttraumatic stress disorder F43.[address] 340 [id number] [address] Sep, [facility] [address] [facility] [id number] [place] [address] Sep, [address] 340 [id number] [address] Sep, [address] 340 [id number] [place] [address] Sep, Dental abscess K04.7 ; Histo ry of atrial flutter Z86.79 and Neck pain M54.[address] 340 [id number] [place] [address] Sep, [address] 340 [id number] [place] [address] Sep, Acquired hypothyroidism E03. 9 [facility] [address] [place] [address] Aug, 201 9 Posttraumatic stress disorder F43.10 and Chronic pain syndrome G89.[address] 340B [id number] [address] Aug, Chronic pain syndrome G89.4 and Dental caries K02.[address] 340 [id number] [address] Aug, [address] 340B [id number] [place] [address] Jul, Sleep disorder G47.9 [facility] [address] [id number] [address] [id number] Jul, Caries K02.[address] 340B [id number] [place] [address] Jun, Low back pain M54.5 and Othe r chronic pain G89.[address] 340[address] [id number] [address] Jun, [address] 340[address] [id number] [address] Jun, Sleep disorder G47.[address] 340B [id number] [place] [address] Jun, Sleep disorder G47.[address] 340B [id number] [place] [address] Jun, Lightheadedness R42 [address] [facility] abscess K04.7 [facility] [address] [id number] [address] [id number] Jun, Dental examination Z01.20 an d Caries K02.[address] 340B [id number] [place] [address] Jun, [address] 340B [id number] [address] Jun, Encounter for immunization Z [address] 340B [id number] [address] Jun, Dental abscess K04.[address] pain, unspecified type R07.[address] 340B [id number] [place] [address] Jun, Encounter for immunization Z [address] 340B [id number] [place] [address] 30 May, 2019 Sleep disorder G47.9 [facility] D[facility] [address] 340B [id number] [place] [address] 24 May, 2019 Chronic pain syndrome G89.4 [facility] JADIEL [address] 340B [id number] [place] [address] 16 May, 2019 History of atrial flutter Z8 6.79 ; Chronic pain syndrome G89.4 and Acquired hypothyroidism E03.9 [facility] JADIEL ANDRADE [address] 340 [id number] [place] [address] May, [facility] JADIEL [address] 340B [id number] [place] [address] May, Nausea R11.0 and Lightheaded ness R42 [facility] [address] 340B [id number] [place] [address] May, Sleep disorder G47.9 [facility] [address] [id number] [place] [address] Apr, Acute non-recurrent frontal sinusitis J01.10 and Tick bite, initial encounter W57.XXXA [facility] DUV[facility] [address] 340B [id number] [address] Apr, Sleep disorder G47.9 [facility] JADIEL [address] 340B [id number] [place] [address] Mar, Sleep disorder G47.9 [facility] JADIEL [facility] [address] 340 [id number] [place] [address] Mar, [facility] JADIEL [address] 340B [id number] [place] [address] Mar, [facility] [address] 340B [id number] [place] [address] Feb, History of atrial flutter Z8 6.79 and Muscle cramping R25.2 [facility] JADIEL [address] 340B [id number] [address] Feb, [facility] AND[facility] [address] 340B [id number] [place] [address] Feb, [facility] [address] 340B [id number] [place] [address] Feb, Cellulitis of left upper ext remity L03.114 and Sleep disorder G47.9 [facility] ANDRADE [address] 340B [id number] [place] [address] Feb, Muscle cramping R25.2 [facility] AND[facility]ADE [address] 340B [id number] [place] [address] January, Chronic pain syndrome G89.4 [facility] ANDRADE [address] 340B [id number] [place] [address] January, [facility] AND[facility] [address] 340B [id number] [place] [address] January, Chronic pain syndrome G89.4 ; Dizziness R42 ; Acquired hypothyroidism E03.9 ; Low back pain M54.5 ; Pulmonary embolism without acute cor pulmonale, unspecified chronicity, unspecified pulmonary embolism type I26.99 and Sleep disorder G47.9 [facility] AND[facility]ADE [address] 340B [id number] [place] [address] January, [facility] AND[facility]ADE [address] 340B [id number] [place] [address] January, [facility] [address] [facility] [id number] [address] [place] [address] Sep, Chronic pain syndrome G89.4 [facility] [address] [facility] [id number] [address] [place] [address] Sep, [facility] [address] [facility] [id number] [address] [place] [address] Sep, [facility] [address] [facility] [id number] [address] [place] [address] Sep, [facility] [address] [id number] [address] [place] [address] Sep, [facility] [address] [facility] [id number] [address] [place] [address] Sep, [facility] [address] [facility] [id number] [address] [place] [address] Sep, [facility] [address] [facility] [id number] [address] [place] [address] Aug, [facility] [address] [facility] [id number] [address] [place] [address] Aug, Portal vein thrombosis I81 ; Chronic pain syndrome G89.4 ; Other acute pulmonary embolism without acute cor pulmonale I26.99 and Chronic hepatitis C without hepatic coma B18.2 [facility] [address] [facility] [id number] [address] [place] [address] Aug, [facility] [address] [facility] [id number] [address] [place] [address] Aug, [facility] [address] [facility] [id number] [address] [place] [address] Jul, Major depressive disorder, r ecurrent, moderate F33.1 and Posttraumatic stress disorder F43.10 [facility] [address] [facility] [id number] [address] [place] [address] Jul, Gastroesophageal reflux dise ase, esophagitis presence not specified K21.9 [facility] [address] [facility] [id number] [address] [place] [address] Jun, [facility] [address] [facility] [id number] [address] [place] [address] Jun, [facility] [address] [facility] [id number] [address] [place] [address] Jun, Posttraumatic stress disorde r F43.10 and Severe major depression with psychotic features F32.3 [facility] [address] [facility] [id number] [address] [place] [address] Apr, [facility] [address] [id number] [address] [place] [address] Apr, Mass of sinus R22.0 ; Athero sclerotic heart disease of [place] coronary artery with unspecified angina pectoris I25.119 and Elevated platelet count D47.3 [facility] [address] [id number] [address] [place] [address] Apr, Severe major depression with psychotic features F32.3 and Posttraumatic stress disorder F43.10 [facility] [address] [id number] [address] [place] [address] January, [facility] [address] [id number] [address] [place] [address] January, Posttraumatic stress disorde r F43.10 and Severe major depression with psychotic features F32.3 [facility] [address] [id number] [address] [place] [address] Dec, 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 and Elevated platelet count D47.3 [facility] [address] [id number] [address] [place] [address] Dec, [facility] [address] [id number] [address] [place] [address] Dec, Low energy R53.83 ; Atherosc lerotic heart disease of [place] coronary artery with unspecified angina pectoris I25.119 ; Gastroesophageal reflux disease, esophagitis presence not specified K21.9 and Urinary hesitancy R39.11 [facility] [address] [id number] [address] [place] [address] Dec, Posttraumatic stress disorde r F43.10 and Severe major depression with psychotic features F32.3 [facility] [address] [id number] [address] [place] [address] Oct, [facility] [address] [id number] [address] [place] [address] Sep, Mass of sinus R22.0 [facility] [address] [id number] [address] [place] [address] Sep, Dysuria R30.0 ; Low back avi n M54.5 ; Other chronic pain G89.29 ; Poor nutrition E63.9 ; Gastroesophageal reflux disease, esophagitis presence not specified K21.9 and Mass of sinus R22.0 [facility] [address] [id number] [address] [place] [address] Sep, Posttraumatic stress disorde r F43.10 and Severe major depression with psychotic features F32.3 [facility] [address] [id number] [address] [place] [address] Sep, [facility] [address] [id number] [address] [place] [address] Aug, [place] [address] [id number] [address] [place] [address] Aug, Encounter for immunization Z 23 [facility] [address] [id number] [address] [place] [address] Jul, Posttraumatic stress disorde r F43.10 ; Severe major depression with psychotic features F32.3 and Major depressive disorder, recurrent, moderate F33.1 [facility] [address] [id number] [address] [place] [address] Jun, [facility] [address] [id number] [address] [place] [address] Jun, [facility] [address] [id number] [address] [place] [address] May, [facility] [address] [id number] [address] [place] [address] Apr, [facility] [address] [id number] [address] [place] [address] Apr, Posttraumatic stress disorde r F43.10 and Severe major depression with psychotic features F32.3 [place] [address] [id number] [address] [place] [address] Mar, [facility] [address] [id number] [address] [place] [address] Feb, [facility] [address] [id number] [address] [place] [address] January, [facility] [address] [id number] [address] [place] [address] January, Posttraumatic stress disorde r F43.10 and Severe major depression with psychotic features F32.3 [facility] [address] [id number] [address] [place] [address] Dec, [facility] [address] [id number] [address] [place] [address] Nov, [facility] [address] [id number] [address] [place] [address] Nov, [facility] [address] [id number] [address] [place] [address] Oct, Posttraumatic stress disorde r F43.10 and Severe major depression with psychotic features F32.3 [facility] [address] [id number] [address] [place] [address] Sep, Encounter for immunization Z 23 ; Posttraumatic stress disorder F43.10 and Severe major depression with psychotic features F32.3 [facility] [address] [id number] [address] [place] [address] Aug, [facility] [address] [id number] [address] [place] [address] Aug, [facility] [address] [facility] [id number] [address] [place] [address] Jul, Encounter for immunization Z 23 ; Posttraumatic stress disorder F43.10 and Severe major depression with psychotic features F32.3 [facility] [address] [facility] [id number] [address] [place] [address] Jun, [facility] [address] [id number] [address] [place] [address] Jun, Mass of sinus R22.0 ; Low ba ck pain M54.5 and Paroxysmal atrial fibrillation I48.0 [facility] [address] [id number] [address] [place] [address] May, [facility] [address] [id number] [address] [place] [address] Apr, Posttraumatic stress disorde r 309.81 and Major depressive disorder, recurrent episode, moderate 296.32 [facility] [address] [id number] [address] [place] [address] Apr, [facility] [address] [id number] [address] [place] [address] Mar, Major depressive disorder, r ecurrent episode, moderate 296.32 and Posttraumatic stress disorder 309.81 [facility] [address] [id number] [address] [place] [address] Feb, [facility] [address] [id number] [address] [place] [address] Feb, [facility] [address] [id number] [address] [place] [address] January, [facility] [address] [id number] [address] [place] [address] January, [facility] [address] [id number] [address] [place] [address] January, [facility] [address] [id number] [address] [place] [address] Dec, [facility] [address] [id number] [address] [place] [address] Dec, [facility] [address] [id number] [address] [place] [address] Nov, [facility] [address] [id number] [address] [place] [address] 06 Nov, 2014 [facility] [address] [id number] [address] [place] [address], [place] [address] Nov, 2014 [facility] [address] [id number] [address] [place] [address], [place] [address] Nov, 2014 [facility] [address] [id number] [address] [place] [address], [place] [address] Nov, 2014 [facility] [address] [id number] [address] [place] [address], [place] [address] 04 Nov, 2014 [facility] [address] [id number] [address] [place] [address], [place] [address] Nov, [facility] [address] [id number] [address] [place] [address], [place] [address] Nov, 2014 [facility] [address] [id number] [address] [place] [address], [place] [address] Oct, 2014 [facility] [address] [id number] [address] [place] [address], [place] [address] Oct, 2014 [facility] [address] [id number] [address] [place] [address], [place] [address] Oct, 2014 [facility] [address] [id number] [address] [place] [address], [place] [address] 16 Oct, 2014 [facility] [address] [id number] [address] [place] [address], [place] [address] Oct, 2014 [facility] [address] [id number] [address] [place] [address], [place] [address] 16 Oct, 2014 [facility] [address] [id number] [address] [place] [address], [place] [address] Oct, 2014 [facility] [address] [id number] [address] [place] [address], [place] [address] Oct, 2014 [facility] [address] [id number] [address] [place] [address], [place] [address] Oct, 2014 [facility] [address] [id number] [address] [place] [address], [place] [address] Oct, 2014 [facility] [address] [id number] [address] [place] [address], [place] [address] Oct, 2014 [facility] [address] [id number] [address] [place] [address], [place] [address] Oct, 2014 [facility] [address] [id number] [address] [place] [address], [place] [address] Oct, 2014 [facility] [address] [id number] [address] [place] [address], [place] [address] Oct, 2014 [facility] [address] [id number] [address] [place] [address], [place] [address] Oct, 2014 [facility] [address] [id number] [address] [place] [address], [place] [address] Oct, 2014 [facility] [address] [id number] [address] [place] [address], [place] [address] Sep, [facility] [address] [id number] [address] [place] [address], [place] [address] Sep, [facility] [address] [id number] [address] [place] [address], [place] [address] Sep, [facility] [address] [id number] [address] [place] [address], [place] [address] Sep, [facility] [address] [id number] [address] [place] [address], [place] [address] Aug, [facility] [address] [id number] [address] [place] [address], [place] [address] Aug, [facility] [address] [id number] [address] [place] [address], [place] [address] Aug, [facility] [address] [id number] [address] [place] [address], [place] [address] Aug, [facility] [address] [id number] [address] [place] [address], [place] [address] Aug, [facility] [address] [id number] [address] [place] [address], [place] [address] Aug, [facility] [address] [id number] [address] [place] [address], [place] [address] Aug, [facility] [address] [id number] [address] [place] [address], [place] [address] Aug, [facility] [address] [id number] [address] [place] [address], [place] [address] Aug, [facility] [address] [id number] [address] [place] [address], [place] [address] Aug, [facility] [address] [id number] [address] [place] [address], [place] [address] Aug, [facility] [address] [id number] [address] [place] [address], [place] [address] Aug, [facility] [address] [id number] [address] [place] [address], [place] [address] Aug, [facility] [address] [id number] [address] [place] [address], [place] [address] Aug, [facility] [address] [id number] [address] [place] [address], [place] [address] Aug, [facility] [address] [id number] [address] [place] [address], [place] [address] Aug, [facility] [address] [id number] [address] [place] [address], [place] [address] Jul, [facility] [address] [id number] [address] [place] [address], [place] [address] Jul, [facility] [address] [id number] [address] [place] [address], [place] [address] Jul, [facility] [address] [id number] [address] [place] [address], [place] [address] Jul, [facility] [address] [id number] [address] [place] [address], [place] [address] Jul, [facility] [address] [id number] [address] [place] [address], [place] [address] Jul, [facility] [address] [id number] [address] [place] [address], [place] [address] Jun, [facility] [address] [id number] [address] [place] [address], [place] [address] Jun, [facility] [address] [id number] [address] [place] [address], [place] [address] Jun, [facility] [address] [id number] [address] [place] [address], [place] [address] Jun, [facility] [address] [id number] [address] [place] [address], [place] [address] Jun, [facility] [address] [id number] [address] [place] [address], [place] [address] Jun, [facility] [address] [id number] [address] [place] [address], [place] [address] Jun, [facility] [address] [id number] [address] [place] [address], [place] [address] Jun, [facility] [address] [id number] [address] [place] [address], [place] [address] Jun, [facility] [address] [id number] [address] [place] [address], [place] [address] Jun, [facility] [address] [id number] [address] [place] [address], [place] [address] Jun, [facility] [address] [id number] [address] [place] [address], [place] [address] Jun, [facility] [address] [id number] [address] [place] [address], [place] [address] Jun, [facility] [address] [id number] [address] [place] [address], [place] [address] Jun, [facility] [address] [id number] [address] [place] [address], [place] [address] May, [facility] [address] [id number] [address] [place] [address], [place] [address] May, [facility] [address] [id number] [address] [place] [address], [place] [address] May, [facility] [address] [id number] [address] [place] [address], [place] [address] May, [facility] [address] [id number] [address] [place] [address], [place] [address] Apr, [facility] [address] [id number] [address] [place] [address], [place] [address] Apr, [facility] [address] [id number] [address] [place] [address], [place] [address] Apr, [facility] [address] [id number] [address] [place] [address], [place] [address] Apr, [facility] [address] [id number] [address] [place] [address], [place] [address] Mar, [facility] [address] [id number] [address] [place] [address], [place] [address] Mar, [facility] [address] [id number] [address] [place] [address], [place] [address] Mar, [facility] [address] [id number] [address] [place] [address], [place] [address] Mar, [facility] [address] [id number] [address] [place] [address], [place] [address] Mar, [facility] [address] [id number] [address] [place] [address], [place] [address] Mar, [facility] [address] [id number] [address] [place] [address], [place] [address] Mar, [facility] [address] [id number] [facility] [address] Mar, [facility] [address] [id number] [facility] [address] Mar, [facility] [address] [id number] [facility] [address] Mar, [facility] [address] [id number] [address] [place] [address], [place] [address] Mar, [facility] [address] [id number] [address] [place] [address], [place] [address] Mar, [facility] [address] [id number] [address] [place] [address], [place] [address] Feb, [facility] [address] [id number] [address] [place] [address], [place] [address] Feb, [facility] [address] [id number] [address] [place] [address], [place] [address] Feb, [facility] [address] [id number] [address] [place] [address], [place] [address] Feb, [facility] [address] [id number] [address] [place] [address], [place] [address] Feb, [facility] [address] [id number] [address] [place] [address], [place] [address] Feb, [facility] [address] [id number] [address] [place] [address], [place] [address] January, [facility] [address] [id number] [address] [place] [address], [place] [address] January, [facility] [address] [id number] [address] [place] [address], [place] [address] January, [facility] [address] [id number] [address] [place] [address], [place] [address] January, [facility] [address] [id number] [address] [place] [address], [place] [address] January, [facility] [address] [id number] [address] [place] [address], [place] [address] January, [facility] [address] [id number] [address] [place] [address], [place] [address] Nov, [facility] [address] [id number] [address] [place] [address], [place] [address] Nov, [facility] [address] [id number] [address] [place] [address], [place] [address] Nov, [facility] [address] [id number] [address] [place] [address], [place] [address] Nov, [facility] [address] [id number] [address] [place] [address], [place] [address] Oct, [facility] [address] [id number] [address] [place] [address], [place] [address] Oct, [facility] [address] [id number] [address] [place] [address], [place] [address] Sep, [facility] [address] [id number] [address] [place] [address], [place] [address] Sep, [facility] [address] [id number] [address] [place] [address], [place] [address] Sep, [facility] [address] [id number] [address] [place] [address], [place] [address] Sep, [facility] [address] [id number] [address] [place] [address], [place] [address] Sep, [facility] [address] [id number] [address] [place] [address], [place] [address] Aug, [facility] [address] [id number] [address] [place] [address], [place] [address] Aug, [facility] [address] [id number] [address] [place] [address], [place] [address] Jul, [facility] [address] [id number] [address] [place] [address] Jul, [facility] [address] [id number] [address] [place] [address], [place] [address] Jul, [facility] [address] [id number] [address] [place] [address], [place] [address] Jun, [facility] [address] [id number] [address] [place] [address], [place] [address] Jun, [facility] [address] [id number] [address] [place] [address], [place] [address] Jun, [facility] [address] [id number] [address] [place] [address], [place] [address] Jun, [facility] [address] [id number] [address] [place] [address], [place] [address] Apr, [facility] [address] [id number] [address] [place] [address], [place] [address] Mar, [facility] [address] [id number] [address] [place] [address], [place] [address] Mar, [facility] [address] [id number] [address] [place] [address], [place] [address] January, [facility] [address] [id number] [address] [place] [address], [place] [address] Dec, [facility] [address] [id number] [address] [place] [address], [place] [address] Dec, [facility] [address] [id number] [address] [place] [address], [place] [address] Nov, [facility] [address] [id number] [address] [place] [address], [place] [address] Nov, [facility] [address] [id number] [address] [place] [address], [place] [address] Nov, [facility] [address] [id number] [address] [place] [address], [place] [address] Nov, [facility] [address] [id number] [address] [place] [address], [place] [address] Nov, [facility] [address] [id number] [address] [place] [address], [place] [address] 05 Nov, 2012 [facility] [address] [id number] [address] [place] [address], [place] [address] Oct, [facility] [address] [id number] [address] [place] [address], [place] [address] 15 Sep, 2012 [facility] [address] [id number] [address] [place] [address], [place] [address] Aug, [facility] [address] [id number] [address] [place] [address], [place] [address] Aug, [facility] [address] [id number] [address] [place] [address], [place] [address] Aug, [facility] [address] [id number] [address] [place] [address], [place] [address] Aug, [facility] [address] [id number] [address] [place] [address], [place] [address] Jul, [facility] [address] [id number] [address] [place] [address], [place] [address] Jul, [facility] [address] [id number] [address] [place] [address], [place] [address] Jun, [facility] [address] [id number] [address] [place] [address], [place] [address] Jun, [facility] [address] [id number] [address] [place] [address], [place] [address] Jun, [facility] [address] [id number] [address] [place] [address], [place] [address] Jun, [facility] [address] [id number] [address] [place] [address], [place] [address] May, [facility] [address] [id number] [address] [place] [address], [place] [address] 18 May, 2012 [facility] [address] [id number] [address] [place] [address], [place] [address] 14 May, 2012 [facility] [address] [id number] [address] [place] [address], [place] [address] 10 May, 2012 [facility] [address] [id number] [address] [place] [address], [place] [address] 04 May, 2012 [facility] [address] [id number] [address] [place] [address], [place] [address] 30 Apr, 2012 [facility] [address] [id number] [address] [place] [address], [place] [address] Apr, [facility] [address] [id number] [address] [place] [address], [place] [address] Mar, [facility] [address] [id number] [address] [place] [address], [place] [address] Mar, [facility] [address] [id number] [address] [place] [address], [place] [address] Mar, [facility] [address] [id number] [address] [place] [address], [place] [address] Feb, [facility] [address] [id number] [address] [place] [address], [place] [address] January, [facility] [address] [id number] [address] [place] [address], [place] [address] Nov, [facility] [address] [id number] [address] [place] [address], [place] [address] Nov, [facility] [address] [id number] [address] [place] [address], [place] [address] Nov, [facility] [address] [id number] [address] [place] [address], [place] [address] 2011 [facility] [address] [id number] [address] [place] [address], [place] [address] Nov, [facility] [address] [id number] [address] [place] [address], [place] [address] 23 Oct, 2011 [facility] [address] [id number] [address] [place] [address], [place] [address] Oct, [facility] [address] [id number] [address] [place] [address], [place] [address] Oct, [facility] [address] [id number] [address] [place] [address], [place] [address] 13 Oct, 2011 [facility] [address] [id number] [address] [place] [address], [place] [address] Oct, [facility] [address] [id number] [address] [place] [address], [place] [address] Sep, [facility] [address] [id number] [address] [place] [address], [place] [address] Sep, [facility] [address] [id number] [address] [place] [address], [place] [address] Sep, [facility] [address] [id number] [address] [place] [address], [place] [address] Sep, [facility] [address] [id number] [address] [place] [address], [place] [address] Sep, [facility] [address] [id number] [address] [place] [address], [place] [address] Sep, [facility] [address] [id number] [address] [place] [address], [place] [address] Sep, [facility] [address] [id number] [address] [place] [address], [place] [address] Aug, [facility] [address] [id number] [address] [place] [address], [place] [address] Aug, [facility] [address] [id number] [address] [place] [address], [place] [address] Aug, [facility] [address] [id number] [address] [place] [address], [place] [address] Aug, [facility] [address] [id number] [address] [place] [address], [place] [address] 09 Aug, 2011 [facility] [address] [id number] [address] [place] [address], [place] [address] Aug, [facility] [address] [id number] [address] [place] [address], [place] [address] Jun, [facility] [address] [id number] [address] [place] [address], [place] [address] Jun, [facility] [address] [id number] [address] [place] [address], [place] [address] 14 Jun, 2011 [facility] [address] [id number] [address] [place] [address], [place] [address] 14 Jun, 2011 [facility] [address] [id number] [address] [place] [address], [place] [address] Apr, [facility] [address] [id number] [address] [place] [address], [place] [address] Mar, [facility] [address] [id number] [address] [place] [address], [place] [address] Feb, [facility] [address] [id number] [address] [place] [address] Sep, [facility] [address] [id number] [address] [place] [address], [place] [address] Aug, [facility] [address] [id number] [address] [place] [address] Aug, [facility] [address] [id number] [address] [place] [address], [place] [address] Jul, [facility] [address] [id number] [address] [place] [address], [place] [address] Jul, [facility] [address] [id number] [address] [place] [address], [place] [address] Jul, [facility] [address] [id number] [address] [place] [address] Jun, [facility] [address] [id number] [address] [place] [address] Apr, [facility] [address] [facility] [id number] [address] [place] [address] Oct, [facility] [address] [facility] [id number] [address] [place] [address] Aug, [facility] [address] [facility] [id number] [address] [place] [address] Jun, [facility] [address] [facility] [id number] [address] [place] [address] Feb, [facility] [address] [facility] [id number] [address] [place] [address] Aug, [facility] [address] [facility] [id number] [address] [place] [address] Jun, [facility] [address] [facility] [id number] [address] [place] [address] Jun, IMMUNIZATIONS No Known Immunizations SOCIAL HISTORY Never Assessed REASON FOR VISIT PLAN OF CARE VITAL SIGNS MEDICATIONS No Known Medications RESULTS No Results PROCEDURES Procedure Date Ordered Result Body Site THER/PROPH/DIAG INJ, SC/IM Jun 20, 2014 INSTRUCTIONS MEDICATIONS ADMINISTERED No Known Medications MEDICAL (GENERAL) HISTORY Type Description Date Medical History headache Medical History depression Medical History hemorrhoids Medical History diverticulosis Medical History portal vein thrombosis Medical History enlarged prostate Medical History adenocarcinoma colon Medical History polyp-2005 Medical History Atrial flutter (past) Medical History CAD Medical History Anxiety Medical History Bulging disk lower back Medical History Arthritis Medical History pulmonary embolus Medical History Hep C,: treated Surgical History splenectomy-Dr. Rand Surgical History sigmoid resection-secondary to diverticulitis stricture- 12/2010 Surgical History colectomy, partial-has a large section o f colon removed Surgical History appendectomy-Dr. Rand 12/2010 Surgical History laminectomy-with disc removal cervical f usion Surgical History neurological surgery Surgical History cervical fusion 1991 Surgical History Upper GI 06/2017 Surgical History abalation for a flutter at [facility] 05/2019 Surgical History teeth removed Hospitalization History [facility] 1988 Hospitalization History Atrial Flutter 2014 Hospitalization History Stomach issues Hospitalization History Pulmonary Embolism 08/2017 Hospitalization History high heart rate 02/2019
--- OUTSIDE RECORDS SUMMARY | 2020-01-17 19:04 | XMS REPORT ---
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 Active 88390194 Problem History of atrial flutter Z86.79 Acti ve 518473375 Problem Portal vein thrombosis I81 Active 79994135 Problem Chronic pain syndrome G89.4 Active 92742427 Problem Severe major depression with psychotic features F3 2.3 Active 27659416 Problem Mass of sinus R22.0 Active 393024 7 Problem Other chronic pain G89.29 Active 8 9903201 Problem Gastroesophageal reflux disease, esophagitis pre sence not specified K21.9 Active 890419500 Problem Urinary hesitancy R39.11 Active 59 24362 Problem Acute non-recurrent frontal sinusitis J01.10 Active 18306091 Problem Major depressive disorder, recurrent, moderate F33 .1 Active 41772890 Problem Diverticulitis K57.92 Active 96038 6006 Problem Posttraumatic stress disorder F43.10 Active 58272845 Problem Elevated platelet count D47.3 Active 538349533 Problem Chronic hepatitis C without hepatic coma B18.2 Active 667108984 Problem Acquired hypothyroidism E03.9 Active 796033161 Problem Sleep disorder G47.9 Active 17422 005 ALLERGIES No Information ENCOUNTERS Encounter Location Date Diagnosis [facility] [address] [id number] [place] [address] Dec, Mouth pain K13.79 and Nausea R11.0 [facility] [address] [id number] [place] [address] Dec, OUTREACH [address] [place] [address] Dec, [address] 340B [id number] [place] [address] 14 Dec, 2019 Chronic pain syndrome G89.4 and Posttraumatic stress disorder F43.10 [facility] [address] 340B [id number] [place] [address] 13 Dec, 2019 Chronic pain syndrome G89.4 and Posttraumatic stress disorder F43.10 [facility] JADIEL [address] 340B [id number] [place] [address] 13 Dec, [address] [id number] [place] [address] 31 Nov, [address] 340B [id number], [place] [address] 19 Nov, 2019 Chronic pain syndrome G89.4 and Posttraumatic stress disorder F43.10 [address] [id number], [place] [address] 17 Nov, 2019 [facility] [address] [id number] [address] [place] [address] [id number] 24 Oct, 2019 [facility] [address] [id number] [address] [place] [id number] Oct, [facility] [address] [place] [address] Oct, [address] K[address] [facility] [address] [id number] [place] [address] 18 Oct, 2019 [address] [id number], [place] [address] 18 Oct, 2019 Chronic pain syndrome G89.4 and Posttraumatic stress disorder F43.10 [address] [id number], [place] [address] 18 Oct, 2019 [address] [id number], [place] [address] 14 Oct, 2019 Chronic pain syndrome G89.4 and Posttraumatic stress disorder F43.10 [facility] [address] [id number] [address] [place] [id number] Oct, [address] 340 [id number], [place] [address] Sep, Epigastric abdominal pain R1 0.13 ; Diverticulitis K57.92 and Viral upper respiratory tract infection J06.[address] [id number], [place] [address] Sep, Posttraumatic stress disorde r F43.[address] 340[address] [id number], [place] [address] Sep, Chronic pain syndrome G89.4 and Posttraumatic stress disorder F43.[address] 340 [id number], [place] [address] Sep, [facility] [address] [facility] [id number] [place] [address] Sep, [address] [id number], [place] [address] Sep, [address] 340 [id number], [place] [address] Sep, Dental abscess K04.7 ; Histo ry of atrial flutter Z86.79 and Neck pain M54.[address] [id number], [place] [address] Sep, [address] 340 [id number], [place] [address] Sep, Acquired hypothyroidism E03. 9 [facility] [address] [place] [address] Aug, 201 9 Posttraumatic stress disorder F43.10 and Chronic pain syndrome G89.[address] 340[address] [id number], [place] [address] Aug, Chronic pain syndrome G89.4 and Dental caries K02.[address] [id number], [place] [address] Aug, [address] 340[address] [id number] [place] [address] Jul, Sleep disorder G47.9 [facility] [address] [id number] [address] [id number] Jul, Caries K02.[address] 340[address] [id number] [place] [address] Jun, Low back pain M54.5 and Othe r chronic pain G89.[address] 340[address] [id number], [place] [address] Jun, [address] 340[address] [id number], [place] [address] Jun, Sleep disorder G47.[address] 340B [id number], [place] [address] Jun, Sleep disorder G47.[address] 340[address] [id number], [place] [address] Jun, Lightheadedness R42 and Drew al abscess K04.7 [facility] [address] [id number] [place] [phone] Jun, Dental examination Z01.20 an d Caries K02.[address] 340[address] [id number], [place] [address] Jun, [address] 340[address] [id number], [place] [address] Jun, Encounter for immunization Z [address] 340[address] [id number], [place] [address] Jun, Dental abscess K04.[address] pain, unspecified type R07.[address] 340[address] [id number] [place] [address] Jun, Encounter for immunization Z [address] 340[address] [id number], [place] [address] 30 May, 2019 Sleep disorder G47.9 [facility] [address] 340B [id number] [place] [address] 24 May, 2019 Chronic pain syndrome G89.4 [facility] JADIEL [address] 340B [id number] [place] [address] 16 May, 2019 History of atrial flutter Z8 6.79 ; Chronic pain syndrome G89.4 and Acquired hypothyroidism E03.9 [facility] JADIEL ANDRADE [address] 340 [id number] [place] [address] May, [facility] JADIEL [address] 340B [id number], [place] [address] May, Nausea R11.0 and Lightheaded ness R42 [facility] [address] 340B [id number], [place] [address] May, Sleep disorder G47.9 [facility] [address] 340 [id number] [place] [address] Apr, Acute non-recurrent frontal sinusitis J01.10 and Tick bite, initial encounter W57.XXXA [facility] D[facility] [address] 340B [id number], [place] [address] Apr, Sleep disorder G47.9 [facility] JADIEL [address] 340B [id number], [place] [address] Mar, Sleep disorder G47.9 [facility] JADIEL [facility] [address] [id number] [place] [address] Mar, [facility] JADIEL [address] 340B [id number], [place] [address] Mar, [facility] [address] 340[address] [id number] [place] [address] Feb, History of atrial flutter Z8 6.79 and Muscle cramping R25.2 [facility] JADIEL [address] 340B [id number], [place] [address] Feb, [facility] [address] [id number] [place] [address] Feb, [facility] [address] 340B [id number] [place] [address] Feb, Cellulitis of left upper ext remity L03.114 and Sleep disorder G47.9 [facility] AND[facility] [address] 340B [id number] [place] [address] Feb, Muscle cramping R25.2 [facility] AND[facility] [address] 340B [id number] [place] [address] January, Chronic pain syndrome G89.4 [facility] AND[facility] [address] 340B [id number] [place] [address] January, [facility] [address] 340B [id number] [place] [address] January, Chronic pain syndrome G89.4 ; Dizziness R42 ; Acquired hypothyroidism E03.9 ; Low back pain M54.5 ; Pulmonary embolism without acute cor pulmonale, unspecified chronicity, unspecified pulmonary embolism type I26.99 and Sleep disorder G47.9 [facility] AND[facility] [address] 340B [id number] [place] [address] January, [facility] [address] 340B [id number] [place] [address] January, [facility] [address] [facility] [id number] [address] [place] [address] Sep, Chronic pain syndrome G89.4 [facility] [address] [facility] [id number] [address] [place] [address] Sep, [facility] [address] [facility] [id number] [address] [place] [address] Sep, [facility] [address] [facility] [id number] [address] [place] [address] Sep, [facility] [address] [id number] [address] [place] [address] Sep, [facility] [address] [facility] [id number] [address] [place] [address] Sep, [facility] [address] [facility] [id number] [address] [place] [address] Sep, [facility] [address] [facility] [id number] [address] [place] [address] Aug, [facility] [address] [facility] [id number] [address] [place] [address] Aug, Portal vein thrombosis I81 ; Chronic pain syndrome G89.4 ; Other acute pulmonary embolism without acute cor pulmonale I26.99 and Chronic hepatitis C without hepatic coma B18.2 [facility] [address] [facility] [id number] [address] [place] [address] Aug, [facility] [address] [facility] [id number] [address] [place] [address] Aug, [facility] [address] [facility] [id number] [address] [place] [address] Jul, Major depressive disorder, r ecurrent, moderate F33.1 and Posttraumatic stress disorder F43.10 [facility] [address] [facility] [id number] [address] [place] [address] Jul, Gastroesophageal reflux dise ase, esophagitis presence not specified K21.9 [facility] [address] [facility] [id number] [address] [place] [address] Jun, [facility] [address] [facility] [id number] [address] [place] [address] Jun, [facility] [address] [facility] [id number] [address] [place] [address] Jun, Posttraumatic stress disorde r F43.10 and Severe major depression with psychotic features F32.3 [facility] [address] [facility] [id number] [address] [place] [address] Apr, [facility] [address] [id number] [address] [place] [address] Apr, Mass of sinus R22.0 ; Athero sclerotic heart disease of [place] coronary artery with unspecified angina pectoris I25.119 and Elevated platelet count D47.3 [facility] [address] [id number] [address] [place] [address] Apr, Severe major depression with psychotic features F32.3 and Posttraumatic stress disorder F43.10 [facility] [address] [id number] [address] [place] [address] January, [facility] [address] [id number] [address] [place] [address] January, Posttraumatic stress disorde r F43.10 and Severe major depression with psychotic features F32.3 [facility] [address] [id number] [address] [place] [address] Dec, Atherosclerotic heart diseas e of [place] coronary artery with unspecified angina pectoris I25.119 and Elevated platelet count D47.3 [facility] [address] [id number] [address] [place] [address] Dec, [facility] [address] [id number] [address] [place] [address] Dec, Low energy R53.83 ; Atherosc lerotic heart disease of ven[place] ira coronary artery with unspecified angina pectoris I25.119 ; Gastroesophageal reflux disease, esophagitis presence not specified K21.9 and Urinary hesitancy R39.11 [facility] [address] [id number] [address] [place] [address] Dec, Posttraumatic stress disorde r F43.10 and Severe major depression with psychotic features F32.3 [facility] [address] [id number] [address] [place] [address] Oct, [facility] [address] [id number] [address] [place] [address] Sep, Mass of sinus R22.0 [facility] [address] [id number] [address] [place] [address] Sep, Dysuria R30.0 ; Low back avi n M54.5 ; Other chronic pain G89.29 ; Poor nutrition E63.9 ; Gastroesophageal reflux disease, esophagitis presence not specified K21.9 and Mass of sinus R22.0 [facility] [address] [id number] [address] [place] [address] Sep, Posttraumatic stress disorde r F43.10 and Severe major depression with psychotic features F32.3 [facility] [address] [id number] [address] [place] [address] Sep, [facility] [address] [id number] [address] [place] [address] Aug, [place] [address] [id number] [address] [place] [address] Aug, Encounter for immunization Z 23 [facility] [address] [id number] [address] [place] [address] Jul, Posttraumatic stress disorde r F43.10 ; Severe major depression with psychotic features F32.3 and Major depressive disorder, recurrent, moderate F33.1 [facility] [address] [id number] [address] [place] [address] Jun, [facility] [address] [id number] [address] [place] [address] Jun, [facility] [address] [id number] [address] [place] [address] May, [facility] [address] [id number] [address] [place] [address] Apr, [facility] [address] [id number] [address] [place] [address] Apr, Posttraumatic stress disorde r F43.10 and Severe major depression with psychotic features F32.3 [place] [address] [id number] [address] [place] [address] Mar, [facility] [address] [id number] [address] [place] [address] Feb, [facility] [address] [id number] [address] [place] [address] January, [facility] [address] [id number] [address] [place] [address] January, Posttraumatic stress disorde r F43.10 and Severe major depression with psychotic features F32.3 [facility] [address] [id number] [address] [place] [address] Dec, [facility] [address] [id number] [address] [place] [address] Nov, [facility] [address] [id number] [address] [place] [address] Nov, [facility] [address] [id number] [address] [place] [address] Oct, Posttraumatic stress disorde r F43.10 and Severe major depression with psychotic features F32.3 [facility] [address] [id number] [address] [place] [address] Sep, Encounter for immunization Z 23 ; Posttraumatic stress disorder F43.10 and Severe major depression with psychotic features F32.3 [facility] [address] [id number] [address] [place] [address] Aug, [facility] [address] [id number] [address] [place] [address] Aug, [facility] [address] [facility] [id number] [address] [place] [address] Jul, Encounter for immunization Z 23 ; Posttraumatic stress disorder F43.10 and Severe major depression with psychotic features F32.3 [facility] [address] [facility] [id number] [address] [place] [address] Jun, [facility] [address] [id number] [address] [place] [address] Jun, Mass of sinus R22.0 ; Low ba ck pain M54.5 and Paroxysmal atrial fibrillation I48.0 [facility] [address] [id number] [address] [place] [address] May, [facility] [address] [id number] [address] [place] [address] Apr, Posttraumatic stress disorde r 309.81 and Major depressive disorder, recurrent episode, moderate 296.32 [facility] [address] [id number] [address] [place] [address] Apr, [facility] [address] [id number] [address] [place] [address] Mar, Major depressive disorder, r ecurrent episode, moderate 296.32 and Posttraumatic stress disorder 309.81 [facility] [address] [id number] [address] [place] [address] Feb, [facility] [address] [id number] [address] [place] [address] Feb, [facility] [address] [id number] [address] [place] [address] January, [facility] [address] [id number] [address] [place] [address] January, [facility] [address] [id number] [address] [place] [address] January, [facility] [address] [id number] [address] [place] [address] Dec, [facility] [address] [id number] [address] [place] [address] Dec, [facility] [address] [id number] [address] [place] [address] Nov, [facility] [address] [id number] [address] [place] [address] 06 Nov, 2014 [facility] [address] [id number] [address] [place] [address], [place] [address] Nov, 2014 [facility] [address] [id number] [address] [place] [address], [place] [address] Nov, 2014 [facility] [address] [id number] [address] [place] [address], [place] [address] Nov, 2014 [facility] [address] [id number] [address] [place] [address], [place] [address] 04 Nov, 2014 [facility] [address] [id number] [address] [place] [address], [place] [address] Nov, [facility] [address] [id number] [address] [place] [address], [place] [address] Nov, 2014 [facility] [address] [id number] [address] [place] [address], [place] [address] Oct, 2014 [facility] [address] [id number] [address] [place] [address], [place] [address] Oct, 2014 [facility] [address] [id number] [address] [place] [address], [place] [address] Oct, 2014 [facility] [address] [id number] [address] [place] [address], [place] [address] 16 Oct, 2014 [facility] [address] [id number] [address] [place] [address], [place] [address] Oct, 2014 [facility] [address] [id number] [address] [place] [address], [place] [address] 16 Oct, 2014 [facility] [address] [id number] [address] [place] [address], [place] [address] Oct, 2014 [facility] [address] [id number] [address] [place] [address], [place] [address] Oct, 2014 [facility] [address] [id number] [address] [place] [address], [place] [id number] Oct, 2014 [facility] [address] [id number] [address] [place] [address], [place] [id number] Oct, 2014 [facility] [address] [id number] [address] [place] [address], [place] [id number] Oct, 2014 [facility] [address] [id number] [address] [place] [address], [place] [id number] Oct, 2014 [facility] [address] [id number] [address] [place] [address], [place] [id number] Oct, 2014 [facility] [address] [id number] [address] [place] [address], [place] [id number] Oct, 2014 [facility] [address] [id number] [address] [place] [address], [place] [id number] Oct, 2014 [facility] [address] [id number] [address] [place] [address], [place] [id number] Oct, 2014 [facility] [address] [id number] [address] [place] [address], [place] [id number] Sep, [facility] [address] [id number] [address] [place] [address], [place] [id number] Sep, [facility] [address] [id number] [address] [place] [address], [place] [id number] Sep, [facility] [address] [id number] [address] [place] [address], [place] [id number] Sep, [facility] [address] [id number] [address] [place] [address], [place] [id number] Aug, [facility] [address] [id number] [address] [place] [address], [place] [id number] Aug, [facility] [address] [id number] [address] [place] [address], [place] [id number] Aug, [facility] [address] [id number] [address] [place] [address], [place] [id number] Aug, [facility] [address] [address] [id number] [address] [place] [address], [place] [address] Aug, [facility] [address] [id number] [address] [place] [address], [place] [address] Aug, [facility] [address] [id number] [address] [place] [address], [place] [address] Aug, [facility] [address] [id number] [address] [place] [address], [place] [address] Aug, [facility] [address] [id number] [address] [place] [address], [place] [address] Aug, [facility] [address] [id number] [address] [place] [address], [place] [address] Aug, [facility] [address] [id number] [address] [place] [address], [place] [address] Aug, [facility] [address] [id number] [address] [place] [address], [place] [address] Aug, [facility] [address] [id number] [address] [place] [address], [place] [address] Aug, [facility] [address] [id number] [address] [place] [address], [place] [address] Aug, [facility] [address] [id number] [address] [place] [address], [place] [address] Aug, [facility] [address] [id number] [address] [place] [address], [place] [address] Aug, [facility] [address] [id number] [address] [place] [address], [place] [address] Jul, [facility] [address] [id number] [address] [place] [address], [place] [address] Jul, [facility] [address] [id number] [address] [place] [address], [place] [address] Jul, [facility] [address] [id number] [address] [place] [address], [place] [address] Jul, [facility] [address] [id number] [address] [place] [address], [place] [address] Jul, [facility] [address] [id number] [address] [place] [address], [place] [address] Jul, [facility] [address] [id number] [address] [place] [address], [place] [address] Jun, [facility] [address] [id number] [address] [place] [address], [place] [address] Jun, [facility] [address] [id number] [address] [place] [address], [place] [address] Jun, [facility] [address] [id number] [address] [place] [address], [place] [address] Jun, [facility] [address] [id number] [address] [place] [address], [place] [address] Jun, [facility] [address] [id number] [address] [place] [address], [place] [address] Jun, [facility] [address] [id number] [address] [place] [address], [place] [address] Jun, [facility] [address] [id number] [address] [place] [address], [place] [address] Jun, [facility] [address] [id number] [address] [place] [address], [place] [address] Jun, [facility] [address] [id number] [address] [place] [address], [place] [address] Jun, [facility] [address] [id number] [address] [place] [address], [place] [address] Jun, [facility] [address] [id number] [address] [place] [address], [place] [address] Jun, [facility] [address] [id number] [address] [place] [address], [place] [address] Jun, [facility] [address] [id number] [address] [place] [address], [place] [address] Jun, [facility] [address] [id number] [address] [place] [address], [place] [address] May, [facility] [address] [id number] [address] [place] [address], [place] [address] May, [facility] [address] [id number] [address] [place] [address], [place] [address] May, [facility] [address] [id number] [address] [place] [address], [place] [address] May, [facility] [address] [id number] [address] [place] [address], [place] [address] Apr, [facility] [address] [id number] [address] [place] [address], [place] [address] Apr, [facility] [address] [id number] [address] [place] [address], [place] [address] Apr, [facility] [address] [id number] [address] [place] [address], [place] [address] Apr, [facility] [address] [id number] [address] [place] [address], [place] [address] Mar, [facility] [address] [id number] [address] [place] [address], [place] [address] Mar, [facility] [address] [id number] [address] [place] [address], [place] [address] Mar, [facility] [address] [id number] [address] [place] [address], [place] [address] Mar, [facility] [address] [id number] [address] [place] [address], [place] [address] Mar, [facility] [address] [id number] [address] [place] [address], [place] [address] Mar, [facility] [address] [id number] [address] [place] [address], [place] [address] Mar, [facility] [address] [id number] [facility] [place] [address] Mar, [facility] [address] [id number] [facility] [place] [address] Mar, [facility] [address] [id number] [facility] [place] [address] Mar, [facility] [address] [id number] [address] [place] [address], [place] [address] Mar, [facility] [address] [id number] [address] [place] [address], [place] [address] Mar, [facility] [address] [id number] [address] [place] [address], [place] [address] Feb, [facility] [address] [id number] [address] [place] [address], [place] [address] Feb, [facility] [address] [id number] [address] [place] [address], [place] [address] Feb, [facility] [address] [id number] [address] [place] [address], [place] [address] Feb, [facility] [address] [id number] [address] [place] [address], [place] [address] Feb, [facility] [address] [id number] [address] [place] [address], [place] [address] Feb, [facility] [address] [id number] [address] [place] [address], [place] [address] January, [facility] [address] [id number] [address] [place] [address], [place] [address] January, [facility] [address] [id number] [address] [place] [address], [place] [address] January, [facility] [address] [id number] [address] [place] [address], [place] [address] January, [facility] [address] [id number] [address] [place] [address], [place] [address] January, [facility] [address] [id number] [address] [place] [address], [place] [address] January, [facility] [address] [id number] [address] [place] [address], [place] [address] Nov, [facility] [address] [id number] [address] [place] [address], [place] [address] Nov, [facility] [address] [id number] [address] [place] [address], [place] [address] Nov, [facility] [address] [id number] [address] [place] [address], [place] [address] Nov, [facility] [address] [id number] [address] [place] [address], [place] [address] Oct, [facility] [address] [id number] [address] [place] [address], [place] [address] Oct, [facility] [address] [id number] [address] [place] [address], [place] [address] Sep, [facility] [address] [id number] [address] [place] [address], [place] [address] Sep, [facility] [address] [id number] [address] [place] [address], [place] [address] Sep, [facility] [address] [id number] [address] [place] [address], [place] [address] Sep, [facility] [address] [id number] [address] [place] [address], [place] [address] Sep, [facility] [address] [id number] [address] [place] [address], [place] [address] Aug, [facility] [address] [id number] [address] [place] [address], [place] [address] Aug, [facility] [address] [id number] [address] [place] [address], [place] [address] Jul, [facility] [address] [id number] [address] [place] [address] Jul, [facility] [address] [id number] [address] [place] [address], [place] [address] Jul, [facility] [address] [id number] [address] [place] [address], [place] [address] Jun, [facility] [address] [id number] [address] [place] [address], [place] [address] Jun, [facility] [address] [id number] [address] [place] [address], [place] [address] Jun, [facility] [address] [id number] [address] [place] [address], [place] [address] Jun, [facility] [address] [id number] [address] [place] [address], [place]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
--- OUTSIDE RECORDS SUMMARY | 2020-01-17 19:05 | XMS REPORT ---
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 Active 23270784 Problem History of atrial flutter Z86.79 Acti ve 828347464 Problem Portal vein thrombosis I81 Active 23257150 Problem Chronic pain syndrome G89.4 Active 68402728 Problem Severe major depression with psychotic features F3 2.3 Active 91033379 Problem Mass of sinus R22.0 Active 324128 7 Problem Other chronic pain G89.29 Active 8 1831557 Problem Gastroesophageal reflux disease, esophagitis pre sence not specified K21.9 Active 995851044 Problem Urinary hesitancy R39.11 Active 59 35206 Problem Acute non-recurrent frontal sinusitis J01.10 Active 85011862 Problem Major depressive disorder, recurrent, moderate F33 .1 Active 69707460 Problem Diverticulitis K57.92 Active 28066 6006 Problem Posttraumatic stress disorder F43.10 Active 43650270 Problem Elevated platelet count D47.3 Active 030156900 Problem Chronic hepatitis C without hepatic coma B18.2 Active 848500891 Problem Acquired hypothyroidism E03.9 Active 969514832 Problem Sleep disorder G47.9 Active 70744 005 ALLERGIES No Information ENCOUNTERS Encounter Location Date Diagnosis [facility] [address] [id number] [place] [address] Dec, Mouth pain K13.79 and Nausea R11.0 [facility] [address] 340 [id number] [place] [address] Dec, OUTREACH [address] [place] [address] Dec, [address] 340B [id number] [place] [address] 14 Dec, 2019 Chronic pain syndrome G89.4 and Posttraumatic stress disorder F43.10 [facility] [address] 340B [id number] [place] [address] 13 Dec, 2019 Chronic pain syndrome G89.4 and Posttraumatic stress disorder F43.10 [facility] JADIEL [address] 340B [id number] [place] [address] 13 Dec, [address] [id number] [place] [address] 31 Nov, [address] 340B [id number] [address] 19 Nov, 2019 Chronic pain syndrome G89.4 and Posttraumatic stress disorder F43.10 [address] [id number] [place] [address] 17 Nov, 2019 [facility] [address] [id number] [address] [place] [id number] 24 Oct, 2019 [facility] [address] [id number] [address] [place] [id number] Oct, [facility] [address] [place] [address] Oct, Caries K02.9 [facility] [address] [id number] [place] [address] 18 Oct, 2019 [address] [id number] [place] [address] 18 Oct, 2019 Chronic pain syndrome G89.4 and Posttraumatic stress disorder F43.10 [address] [id number] [place] [address] 18 Oct, [address] [id number] [place] [address] 14 Oct, 2019 Chronic pain syndrome G89.4 and Posttraumatic stress disorder F43.10 [facility] [address] [id number] [address] [place] [id number] Oct, [address] 340 [id number] [address] Sep, Epigastric abdominal pain R1 0.13 ; Diverticulitis K57.92 and Viral upper respiratory tract infection J06.[address] 340 [id number] [place] [address] Sep, Posttraumatic stress disorde r F43.[address] 340 [id number] [place] [address] Sep, Chronic pain syndrome G89.4 and Posttraumatic stress disorder F43.[address] 340 [id number] [place] [address] Sep, [facility] [address] [facility] [id number] [place] [address] Sep, [address] [id number] [address] Sep, [address] [id number] [place] [address] Sep, Dental abscess K04.7 ; Histo ry of atrial flutter Z86.79 and Neck pain M54.[address] 340 [id number] [place] [address] Sep, Acquired hypothyroidism E03. [address] 340 [id number] [place] [address] Sep, [facility] [address] [place] [address] Aug, 201 9 Posttraumatic stress disorder F43.10 and Chronic pain syndrome G89.[address] 340B [id number] [place] [address] Aug, Chronic pain syndrome G89.4 and Dental caries K02.[address] [id number] [place] [address] Aug, [address] 340B [id number] [place] [address] Jul, Sleep disorder G47.9 [facility] [address] [id number] [address] [id number] Jul, Caries K02.[address] 340B [id number] [place] [address] Jun, Low back pain M54.5 and Othe r chronic pain G89.[address] 340B [id number] [place] [address] Jun, [address] 340B [id number] [place] [address] Jun, Sleep disorder G47.[address] 340B [id number] [place] [address] Jun, Sleep disorder G47.[address] 340B [id number] [place] [address] Jun, Lightheadedness R42 and Bent al abscess K04.7 [facility] [address] [id number] [address] [id number] Jun, Dental examination Z01.20 an d Caries K02.[address] 340B [id number] [place] [address] Jun, [address] 340B [id number] [place] [address] Jun, Encounter for immunization Z [address] 340B [id number] [place] [address] Jun, Dental abscess K04.[address] pain, unspecified type R07.[address] 340B [id number] [place] [address] Jun, Encounter for immunization Z [address] 340B [id number] [place] [address] 30 May, 2019 Sleep disorder G47.9 [facility] [address] 340B [id number] [place] [address] 24 May, 2019 Chronic pain syndrome G89.4 [facility] JADIEL [address] 340B [id number] [place] [address] 16 May, 2019 History of atrial flutter Z8 6.79 ; Chronic pain syndrome G89.4 and Acquired hypothyroidism E03.9 [facility] JADIEL ANDRADE [address] 340 [id number] [place] [address] May, [facility] JADIEL [address] 340B [id number] [place] [address] May, Nausea R11.0 and Lightheaded ness R42 [facility] [place] [address] 340B [id number] [place] [address] May, Sleep disorder G47.9 [facility] [address] [id number] [place] [address] Apr, Acute non-recurrent frontal sinusitis J01.10 and Tick bite, initial encounter W57.XXXA [facility] [place] [address] 340B [id number] [place] [address] Apr, Sleep disorder G47.9 [facility] JADIEL [address] 340B [id number] [place] [address] Mar, Sleep disorder G47.9 [facility] JADIEL [facility] [address] 340 [id number] [place] [address] Mar, [facility] JADIEL [address] 340B [id number] [place] [address] Mar, [facility] [address] 340B [id number] [place] [address] Feb, History of atrial flutter Z8 6.79 and Muscle cramping R25.2 [facility] JADIEL [address] 340B [id number] [place] [address] Feb, [facility] [address] 340B [id number] [place] [address] Feb, [facility] [address] 340B [id number] [place] [address] Feb, Cellulitis of left upper ext remity L03.114 and Sleep disorder G47.9 [facility] AND[facility] [address] 340B [id number] [place] [address] Feb, Muscle cramping R25.2 [facility] [address] 340B [id number] [place] [address] January, Chronic pain syndrome G89.4 [facility] [place] [address] 340B [id number] [place] [address] January, [facility] [place] [address] 340B [id number] [place] [address] January, Chronic pain syndrome G89.4 ; Dizziness R42 ; Acquired hypothyroidism E03.9 ; Low back pain M54.5 ; Pulmonary embolism without acute cor pulmonale, unspecified chronicity, unspecified pulmonary embolism type I26.99 and Sleep disorder G47.9 [facility] [address] 340B [id number] [place] [address] January, [facility] [place] [address] 340B [id number] [place] [address] January, [facility] [address] [facility] [id number] [address] [place] [address] Sep, Chronic pain syndrome G89.4 [facility] [address] [facility] [id number] [address] [place] [address] Sep, [facility] [address] [facility] [id number] [address] [place] [address] Sep, [facility] [address] [facility] [id number] [address] [place] [address] Sep, [facility] [address] [id number] [address] [place] [address] Sep, [facility] [address] [facility] [id number] [address] [place] [address] Sep, [facility] [address] [facility] [id number] [address] [place] [address] Sep, [facility] [address] [facility] [id number] [address] [place] [address] Aug, [facility] [address] [facility] [id number] [address] [place] [address] Aug, Portal vein thrombosis I81 ; Chronic pain syndrome G89.4 ; Other acute pulmonary embolism without acute cor pulmonale I26.99 and Chronic hepatitis C without hepatic coma B18.2 [facility] [address] [facility] [id number] [address] [place] [address] Aug, [facility] [address] [facility] [id number] [address] [place] [address] Aug, [facility] [address] [facility] [id number] [address] [place] [address] Jul, Major depressive disorder, r ecurrent, moderate F33.1 and Posttraumatic stress disorder F43.10 [facility] [address] [facility] [id number] [address] [place] [address] Jul, Gastroesophageal reflux dise ase, esophagitis presence not specified K21.9 [facility] [address] [facility] [id number] [address] [place] [address] Jun, [facility] [address] [facility] [id number] [address] [place] [address] Jun, [facility] [address] [facility] [id number] [address] [place] [address] Jun, Posttraumatic stress disorde r F43.10 and Severe major depression with psychotic features F32.3 [facility] [address] [facility] [id number] [address] [place] [address] Apr, [facility] [address] [id number] [address] [place] [address] Apr, Mass of sinus R22.0 ; Athero sclerotic heart disease of [place] coronary artery with unspecified angina pectoris I25.119 and Elevated platelet count D47.3 [facility] [address] [id number] [address] [place] [address] Apr, Severe major depression with psychotic features F32.3 and Posttraumatic stress disorder F43.10 [facility] [address] [id number] [address] [place] [address] January, [facility] [address] [id number] [address] [place] [address] January, Posttraumatic stress disorde r F43.10 and Severe major depression with psychotic features F32.3 [facility] [address] [id number] [address] [place] [address] Dec, 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 and Elevated platelet count D47.3 [facility] [address] [id number] [address] [place] [address] Dec, [facility] [address] [id number] [address] [place] [address] Dec, Low energy R53.83 ; Atherosc lerotic heart disease of [place] coronary artery with unspecified angina pectoris I25.119 ; Gastroesophageal reflux disease, esophagitis presence not specified K21.9 and Urinary hesitancy R39.11 [facility] [address] [id number] [address] [place] [address] Dec, Posttraumatic stress disorde r F43.10 and Severe major depression with psychotic features F32.3 [facility] [address] [id number] [address] [place] [address] Oct, [facility] [address] [id number] [address] [place] [address] Sep, Mass of sinus R22.0 [facility] [address] [id number] [address] [place] [address] Sep, Dysuria R30.0 ; Low back avi n M54.5 ; Other chronic pain G89.29 ; Poor nutrition E63.9 ; Gastroesophageal reflux disease, esophagitis presence not specified K21.9 and Mass of sinus R22.0 [facility] [address] [id number] [address] [place] [address] Sep, Posttraumatic stress disorde r F43.10 and Severe major depression with psychotic features F32.3 [facility] [address] [id number] [address] [place] [address] Sep, [facility] [address] [id number] [address] [place] [address] Aug, [place] [address] [id number] [address] [place] [address] Aug, Encounter for immunization Z 23 [facility] [address] [id number] [address] [place] [address] Jul, Posttraumatic stress disorde r F43.10 ; Severe major depression with psychotic features F32.3 and Major depressive disorder, recurrent, moderate F33.1 [facility] [address] [id number] [address] [place] [address] Jun, [facility] [address] [id number] [address] [place] [address] Jun, [facility] [address] [id number] [address] [place] [address] May, [facility] [address] [id number] [address] [place] [address] Apr, [facility] [address] [id number] [address] [place] [address] Apr, Posttraumatic stress disorde r F43.10 and Severe major depression with psychotic features F32.3 [place] [address] [id number] [address] [place] [address] Mar, [facility] [address] [id number] [address] [place] [address] Feb, [facility] [address] [id number] [address] [place] [address] January, [facility] [address] [id number] [address] [place] [address] January, Posttraumatic stress disorde r F43.10 and Severe major depression with psychotic features F32.3 [facility] [address] [id number] [address] [place] [address] Dec, [facility] [address] [id number] [address] [place] [address] Nov, [facility] [address] [id number] [address] [place] [address] Nov, [facility] [address] [id number] [address] [place] [address] Oct, Posttraumatic stress disorde r F43.10 and Severe major depression with psychotic features F32.3 [facility] [address] [id number] [address] [place] [address] Sep, Encounter for immunization Z 23 ; Posttraumatic stress disorder F43.10 and Severe major depression with psychotic features F32.3 [facility] [address] [id number] [address] [place] [address] Aug, [facility] [address] [id number] [address] [place] [address] Aug, [facility] [address] [facility] [id number] [address] [place] [address] Jul, Encounter for immunization Z 23 ; Posttraumatic stress disorder F43.10 and Severe major depression with psychotic features F32.3 [facility] [address] [facility] [id number] [address] [place] [address] Jun, [facility] [address] [id number] [address] [place] [address] Jun, Mass of sinus R22.0 ; Low ba ck pain M54.5 and Paroxysmal atrial fibrillation I48.0 [facility] [address] [id number] [address] [place] [address] May, [facility] [address] [id number] [address] [place] [address] Apr, Posttraumatic stress disorde r 309.81 and Major depressive disorder, recurrent episode, moderate 296.32 [facility] [address] [id number] [address] [place] [address] Apr, [facility] [address] [id number] [address] [place] [address] Mar, Major depressive disorder, r ecurrent episode, moderate 296.32 and Posttraumatic stress disorder 309.81 [facility] [address] [id number] [address] [place] [address] Feb, [facility] [address] [id number] [address] [place] [address] Feb, [facility] [address] [id number] [address] [place] [address] January, [facility] [address] [id number] [address] [place] [address] January, [facility] [address] [id number] [address] [place] [address] January, [facility] [address] [id number] [address] [place] [address] Dec, [facility] [address] [id number] [address] [place] [address] Dec, [facility] [address] [id number] [address] [place] [address] Nov, [facility] [address] [id number] [address] [place] [address] 06 Nov, 2014 [facility] [address] [id number] [address] [place] [address], [place] [address] Nov, 2014 [facility] [address] [id number] [address] [place] [address], [place] [address] Nov, 2014 [facility] [address] [id number] [address] [place] [address], [place] [address] Nov, 2014 [facility] [address] [id number] [address] [place] [address], [place] [address] 04 Nov, 2014 [facility] [address] [id number] [address] [place] [address], [place] [address] Nov, [facility] [address] [id number] [address] [place] [address], [place] [address] Nov, 2014 [facility] [address] [id number] [address] [place] [address], [place] [address] Oct, 2014 [facility] [address] [id number] [address] [place] [address], [place] [address] Oct, 2014 [facility] [address] [id number] [address] [place] [address], [place] [address] Oct, 2014 [facility] [address] [id number] [address] [place] [address], [place] [address] 16 Oct, 2014 [facility] [address] [id number] [address] [place] [address], [place] [address] Oct, 2014 [facility] [address] [id number] [address] [place] [address], [place] [address] 16 Oct, 2014 [facility] [address] [id number] [address] [place] [address], [place] [address] Oct, 2014 [facility] [address] [id number] [address] [place] [address], [place] [address] Oct, 2014 [facility] [address] [id number] [address] [place] [address], [place] [address] Oct, 2014 [facility] [address] [id number] [address] [place] [address], [place] [address] Oct, 2014 [facility] [address] [id number] [address] [place] [address], [place] [address] Oct, 2014 [facility] [address] [id number] [address] [place] [address], [place] [address] Oct, 2014 [facility] [address] [id number] [address] [place] [address], [place] [address] Oct, 2014 [facility] [address] [id number] [address] [place] [address], [place] [address] Oct, 2014 [facility] [address] [id number] [address] [place] [address], [place] [address] Oct, 2014 [facility] [address] [id number] [address] [place] [address], [place] [address] Oct, 2014 [facility] [address] [id number] [address] [place] [address], [place] [address] Sep, [facility] [address] [id number] [address] [place] [address], [place] [address] Sep, [facility] [address] [id number] [address] [place] [address], [place] [address] Sep, [facility] [address] [id number] [address] [place] [address], [place] [address] Sep, [facility] [address] [id number] [address] [place] [address], [place] [address] Aug, [facility] [address] [id number] [address] [place] [address], [place] [address] Aug, [facility] [address] [id number] [address] [place] [address], [place] [address] Aug, [facility] [address] [id number] [address] [place] [address], [place] [address] Aug, [facility] [address] [id number] [address] [place] [address], [place] [address] Aug, [facility] [address] [id number] [address] [place] [address], [place] [address] Aug, [facility] [address] [id number] [address] [place] [address], [place] [address] Aug, [facility] [address] [id number] [address] [place] [address], [place] [address] Aug, [facility] [address] [id number] [address] [place] [address], [place] [address] Aug, [facility] [address] [id number] [address] [place] [address], [place] [address] Aug, [facility] [address] [id number] [address] [place] [address], [place] [address] Aug, [facility] [address] [id number] [address] [place] [address], [place] [address] Aug, [facility] [address] [id number] [address] [place] [address], [place] [address] Aug, [facility] [address] [id number] [address] [place] [address], [place] [address] Aug, [facility] [address] [id number] [address] [place] [address], [place] [address] Aug, [facility] [address] [id number] [address] [place] [address], [place] [address] Aug, [facility] [address] [id number] [address] [place] [address], [place] [address] Jul, [facility] [address] [id number] [address] [place] [address], [place] [address] Jul, [facility] [address] [id number] [address] [place] [address], [place] [address] Jul, [facility] [address] [id number] [address] [place] [address], [place] [address] Jul, [facility] [address] [id number] [address] [place] [address], [place] [address] Jul, [facility] [address] [id number] [address] [place] [address], [place] [address] Jul, [facility] [address] [id number] [address] [place] [address], [place] [address] Jun, [facility] [address] [id number] [address] [place] [address], [place] [address] Jun, [facility] [address] [id number] [address] [place] [address], [place] [address] Jun, [facility] [address] [id number] [address] [place] [address], [place] [address] Jun, [facility] [address] [id number] [address] [place] [address], [place] [address] Jun, [facility] [address] [id number] [address] [place] [address], [place] [address] Jun, [facility] [address] [id number] [address] [place] [address], [place] [address] Jun, [facility] [address] [id number] [address] [place] [address], [place] [address] Jun, [facility] [address] [id number] [address] [place] [address], [place] [address] Jun, [facility] [address] [id number] [address] [place] [address], [place] [address] Jun, [facility] [address] [id number] [address] [place] [address], [place] [address] Jun, [facility] [address] [id number] [address] [place] [address], [place] [address] Jun, [facility] [address] [id number] [address] [place] [address], [place] [address] Jun, [facility] [address] [id number] [address] [place] [address], [place] [address] Jun, [facility] [address] [id number] [address] [place] [address], [place] [address] May, [facility] [address] [id number] [address] [place] [address], [place] [address] May, [facility] [address] [id number] [address] [place] [address], [place] [address] May, [facility] [address] [id number] [address] [place] [address], [place] [address] May, [facility] [address] [id number] [address] [place] [address], [place] [address] Apr, [facility] [address] [id number] [address] [place] [address], [place] [address] Apr, [facility] [address] [id number] [address] [place] [address], [place] [address] Apr, [facility] [address] [id number] [address] [place] [address], [place] [address] Apr, [facility] [address] [id number] [address] [place] [address], [place] [address] Mar, [facility] [address] [id number] [address] [place] [address], [place] [address] Mar, [facility] [address] [id number] [address] [place] [address], [place] [address] Mar, [facility] [address] [id number] [address] [place] [address], [place] [address] Mar, [facility] [address] [id number] [address] [place] [address], [place] [address] Mar, [facility] [address] [id number] [address] [place] [address], [place] [address] Mar, [facility] [address] [id number] [address] [place] [address], [place] [address] Mar, [facility] [address] [id number] [facility] [place] [address] Mar, [facility] [address] [id number] [facility] [place] [address] Mar, [facility] [address] [id number] [facility] [place] [address] Mar, [facility] [address] [id number] [address] [place] [address], [place] [address] Mar, [facility] [address] [id number] [address] [place] [address], [place] [address] Mar, [facility] [address] [id number] [address] [place] [address], [place] [address] Feb, [facility] [address] [id number] [address] [place] [address], [place] [address] Feb, [facility] [address] [id number] [address] [place] [address], [place] [address] Feb, [facility] [address] [id number] [address] [place] [address], [place] [address] Feb, [facility] [address] [id number] [address] [place] [address], [place] [address] Feb, [facility] [address] [id number] [address] [place] [address], [place] [address] Feb, [facility] [address] [id number] [address] [place] [address], [place] [address] January, [facility] [address] [id number] [address] [place] [address], [place] [address] January, [facility] [address] [id number] [address] [place] [address], [place] [address] January, [facility] [address] [id number] [address] [place] [address], [place] [address] January, [facility] [address] [id number] [address] [place] [address], [place] [address] January, [facility] [address] [id number] [address] [place] [address], [place] [address] January, [facility] [address] [id number] [address] [place] [address], [place] [address] Nov, [facility] [address] [id number] [address] [place] [address], [place] [address] Nov, [facility] [address] [id number] [address] [place] [address], [place] [address] Nov, [facility] [address] [id number] [address] [place] [address], [place] [address] Nov, [facility] [address] [id number] [address] [place] [address], [place] [address] Oct, [facility] [address] [id number] [address] [place] [address], [place] [address] Oct, [facility] [address] [id number] [address] [place] [address], [place] [address] Sep, [facility] [address] [id number] [address] [place] [address], [place] [address] Sep, [facility] [address] [id number] [address] [place] [address], [place] [address] Sep, [facility] [address] [id number] [address] [place] [address], [place] [address] Sep, [facility] [address] [id number] [address] [place] [address], [place] [address] Sep, [facility] [address] [id number] [address] [place] [address], [place] [address] Aug, [facility] [address] [id number] [address] [place] [address], [place] [address] Aug, [facility] [address] [id number] [address] [place] [address], [place] [address] Jul, [facility] [address] [id number] [address] [place] [address] Jul, [facility] [address] [id number] [address] [place] [address], [place] [address] Jul, [facility] [address] [id number] [address] [place] [address], [place] [address] Jun, [facility] [address] [id number] [address] [place] [address], [place] [address] Jun, [facility] [address] [id number] [address] [place] [address], [place] [address] Jun, [facility] [address] [id number] [address] [place] [address], [place] [address] Jun, [facility] [address] [id number] [address] [place] [address], [place] [address] Apr, [facility] [address] [id number] [address] [place] [address], [place] [address] Mar, [facility] [address] [id number] [address] [place] [address], [place] [address] Mar, [facility] [address] [id number] [address] [place] [address], [place] [address] January, [facility] [address] [id number] [address] [place] [address], [place] [address] Dec,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
--- OUTSIDE RECORDS SUMMARY | 2020-01-17 19:05 | XMS REPORT ---
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 Active 18196368 Problem History of atrial flutter Z86.79 Acti ve 627789748 Problem Portal vein thrombosis I81 Active 18786179 Problem Chronic pain syndrome G89.4 Active 70685438 Problem Severe major depression with psychotic features F3 2.3 Active 96034777 Problem Mass of sinus R22.0 Active 069489 7 Problem Other chronic pain G89.29 Active 8 9449305 Problem Gastroesophageal reflux disease, esophagitis pre sence not specified K21.9 Active 843033193 Problem Urinary hesitancy R39.11 Active 59 91797 Problem Acute non-recurrent frontal sinusitis J01.10 Active 43352582 Problem Major depressive disorder, recurrent, moderate F33 .1 Active 87030379 Problem Diverticulitis K57.92 Active 29774 6006 Problem Posttraumatic stress disorder F43.10 Active 69354410 Problem Elevated platelet count D47.3 Active 253758022 Problem Chronic hepatitis C without hepatic coma B18.2 Active 167958039 Problem Acquired hypothyroidism E03.9 Active 136517281 Problem Sleep disorder G47.9 Active 88497 005 ALLERGIES No Information ENCOUNTERS Encounter Location Date Diagnosis [address] [id number] [place] [address] Nov, [address] 340[address] [id number] [address] Nov, Chronic pain syndrome G89.4 and Posttraumatic stress disorder F43.[address] 340[address] [id number] [place] [address] Nov, [facility] [address] [facility] [id number] [address] [place] [id number] Oct, [facility] [address] [id number] [address] [place] [id number] Oct, [facility] [address] [place] [address] Oct, Caries K02.9 [facility] [address] [id number] [place] [address] Oct, [address] 340[address] [id number] [address] Oct, Chronic pain syndrome G89.4 and Posttraumatic stress disorder F43.[address] 340[address] [id number] [place] [address] Oct, [address] 340[address] [id number] [place] [address] Oct, Chronic pain syndrome G89.4 and Posttraumatic stress disorder F43.10 [facility] [address] [id number] [place] [id number] Oct, [address] [id number] [place] [address] Sep, Epigastric abdominal pain R1 0.13 ; Diverticulitis K57.92 and Viral upper respiratory tract infection J06.[address] 340[address] [id number] [place] [address] Sep, Posttraumatic stress disorde r F43.[address] 340[address] [id number] [place] [address] Sep, Chronic pain syndrome G89.4 and Posttraumatic stress disorder F43.[address] 340[address] [id number] [place] [address] Sep, [facility] [address] [id number] [place] [address] Sep, [address] 340[address] [id number] [place] [address] Sep, [address] 340[address] [id number] [place] [address] Sep, Dental abscess K04.7 ; Histo ry of atrial flutter Z86.79 and Neck pain M54.[address] 340[address] [id number] [place] [address] Sep, [address] 340[address] [id number] [address] Sep, Acquired hypothyroidism E03. 9 [facility] [address] [place] [address] Aug, 9 Posttraumatic stress disorder F43.10 and Chronic pain syndrome G89.[address] 340B [id number] [place] [address] Aug, Chronic pain syndrome G89.4 and Dental caries K02.[address] 340[address] [id number] [place] [address] Aug, [address] 340[address] [id number] [place] [address] Jul, Sleep disorder G47.9 [facility] [address] [facility] [id number] [address] [id number] Jul, Caries K02.[address] 340B [id number] [place] [address] Jun, Low back pain M54.5 and Othe r chronic pain G89.[address] 340B [id number] [place] [address] Jun, [address] 340B [id number] [place] [address] Jun, Sleep disorder G47.[address] 340[address] 81602502EQEAGLE [place] [address] Jun, Sleep disorder G47.[address] 340[address] [id number] [place] [address] 07 Jun, 2019 Lightheadedness R42 and Charles al abscess K04.7 [facility] [address] [id number] [address] [id number] Jun, Dental examination Z01.20 an d Caries K02.[address] 340 [id number] [place] [address] Jun, [address] 340B [id number] [place] [address] Jun, Encounter for immunization Z [address] 340B 12199734JFEAGLE [place] [address] Jun, Dental abscess K04.[address] pain, unspecified type R07.[address] 340B [id number] [place] [address] Jun, Encounter for immunization Z [address] 340B 78461384WREAGLE [place] [address] May, Sleep disorder G47.[address] 340B 82054916DLEAGLE [place] [address] May, 2019 Chronic pain syndrome G89.[address] 340B 90984848NKEAGLE [place] [address] 16 May, 2019 History of atrial flutter Z8 6.79 ; Chronic pain syndrome G89.4 and Acquired hypothyroidism E03.[address] 340[address] 57894650MMEAGLE [place] [address] May, [address] 340B [id number] [place] [address] May, Nausea R11.0 and Lightheaded ness R42 [address] 340B [id number] [place] [address] May, Sleep disorder G47.9 [facility] [address] 340 [id number] [address] Apr, Acute non-recurrent frontal sinusitis J01.10 and Tick bite, initial encounter W57.XXXA [facility] [address] 340B [id number] [place] [address] Apr, Sleep disorder G47.9 [facility] [address] [id number] [place] [address] Mar, Sleep disorder G47.9 [facility] [address] 340 [id number] [place] [address] Mar, [facility] [address] 340B [id number] [place] [address] Mar, [facility] [address] 340B [id number] [place] [address] Feb, History of atrial flutter Z8 6.79 and Muscle cramping R25.2 [facility] [address] 340B [id number] [place] [address] Feb, [facility] [address] 340B [id number] [place] [address] Feb, [facility] [address] 340B [id number] [place] [address] Feb, Cellulitis of left upper ext remity L03.114 and Sleep disorder G47.9 [facility] [address] 340B [id number] [place] [address] Feb, Muscle cramping R25.2 [facility] [address] 340B [id number] [place] [address] January, Chronic pain syndrome G89.4 [facility] [address] 340B [id number] [place] [address] January, [facility] [address] 340B [id number] [place] [address] January, Chronic pain syndrome G89.4 ; Dizziness R42 ; Acquired hypothyroidism E03.9 ; Low back pain M54.5 ; Pulmonary embolism without acute cor pulmonale, unspecified chronicity, unspecified pulmonary embolism type I26.99 and Sleep disorder G47.9 [facility] JADIEL [address] 340B [id number] [place] [address] January, [address] 340B [id number] [place] [address] January, [facility] [address] [id number] [address] [place] [address] Sep, Chronic pain syndrome G89.4 [facility] [address] [id number] [address] [place] [address] Sep, [facility] [address] [id number] [address] [place] [address] Sep, [facility] [address] [id number] [address] [place] [address] Sep, [facility] [address] [id number] [address] [place] [address] Sep, [facility] [address] [id number] [address] [place] [address] Sep, [facility] [address] [id number] [address] [place] [address] Sep, [facility] [address] [id number] [address] [place] [address] Aug, [facility] [address] [id number] [address] [place] [address] Aug, Portal vein thrombosis I81 ; Chronic pain syndrome G89.4 ; Other acute pulmonary embolism without acute cor pulmonale I26.99 and Chronic hepatitis C without hepatic coma B18.2 [facility] [address] [id number] [address] [place] [address] Aug, [facility] [address] [facility] [id number] [address] [place] [address] Aug, [facility] [address] [facility] [id number] [address] [place] [address] Jul, Major depressive disorder, r ecurrent, moderate F33.1 and Posttraumatic stress disorder F43.10 [place] [address] [facility] [id number] [address] [place] [address] Jul, Gastroesophageal reflux dise ase, esophagitis presence not specified K21.9 [facility] [address] [id number] [address] [place] [address] Jun, [place] [address] [facility] [id number] [address] [place] [address] Jun, [place] [address] [facility] [id number] [address] [place] [address] Jun, Posttraumatic stress disorde r F43.10 and Severe major depression with psychotic features F32.3 [place] [address] [facility] [id number] [address] [place] [address] Apr, [place] [address] [facility] [id number] [address] [place] [address] Apr, Mass of sinus R22.0 ; Athero sclerotic heart disease of [place] coronary artery with unspecified angina pectoris I25.119 and Elevated platelet count D47.3 [place] [address] [facility] [id number] [address] [place] [address] Apr, Severe major depression with psychotic features F32.3 and Posttraumatic stress disorder F43.10 [place] [address] [facility] [id number] [address] [place] [address] January, [place] [address] [facility] [id number] [address] [place] [address] January, Posttraumatic stress disorde r F43.10 and Severe major depression with psychotic features F32.3 [place] [address] [facility] [id number] [address] [place] [address] Dec, Atherosclerotic heart diseas e of [place] coronary artery with unspecified angina pectoris I25.119 and Elevated platelet count D47.3 [place] [address] [place] [id number] [place] [address] Dec, [place] [address] [place] [id number] [place] [address] Dec, Low energy R53.83 ; Atherosc lerotic heart disease of [place] coronary artery with unspecified angina pectoris I25.119 ; Gastroesophageal reflux disease, esophagitis presence not specified K21.9 and Urinary hesitancy R39.11 [place] [address] [address] Dec, Posttraumatic stress disorde r F43.10 and Severe major depression with psychotic features F32.3 [place] [address] [address] Oct, [place] [address] [address] Sep, Mass of sinus R22.0 [place] [address] [address] Sep, Dysuria R30.0 ; Low back avi n M54.5 ; Other chronic pain G89.29 ; Poor nutrition E63.9 ; Gastroesophageal reflux disease, esophagitis presence not specified K21.9 and Mass of sinus R22.0 [place] [address] [address] Sep, Posttraumatic stress disorde r F43.10 and Severe major depression with psychotic features F32.3 [place] [address] [address] Sep, [place] [address] [place] [id number] [place] [address] Aug, [place] [address] [address] Aug, Encounter for immunization Z 23 [facility] [address] [id number] [address] [place] [address] Jul, Posttraumatic stress disorde r F43.10 ; Severe major depression with psychotic features F32.3 and Major depressive disorder, recurrent, moderate F33.1 [facility] [address] [id number] [address] [place] [address] Jun, [facility] [address] [id number] [address] [place] [address] Jun, [facility] [address] [id number] [address] [place] [address] May, [facility] [address] [id number] [address] [place] [address] Apr, [facility] [address] [id number] [address] [place] [address] Apr, Posttraumatic stress disorde r F43.10 and Severe major depression with psychotic features F32.3 [facility] [address] [id number] [address] [place] [address] Mar, [facility] [address] [id number] [address] [place] [address] Feb, [facility] [address] [id number] [address] [place] [address] January, [facility] [address] [id number] [address] [place] [address] January, Posttraumatic stress disorde r F43.10 and Severe major depression with psychotic features F32.3 [facility] [address] [id number] [address] [place] [address] Dec, [facility] [address] [id number] [address] [place] [address] Nov, [facility] [address] [id number] [address] [place] [address] Nov, [facility] [address] [facility] [id number] [address] [place] [address] Oct, Posttraumatic stress disorde r F43.10 and Severe major depression with psychotic features F32.3 [facility] [address] [facility] [id number] [address] [place] [address] Sep, Encounter for immunization Z 23 ; Posttraumatic stress disorder F43.10 and Severe major depression with psychotic features F32.3 [facility] [address] [facility] [id number] [address] [place] [address] Aug, [facility] [address] [facility] [id number] [address] [place] [address] Aug, [facility] [address] [place] [id number] [address] [place] [address] Jul, Encounter for immunization Z 23 ; Posttraumatic stress disorder F43.10 and Severe major depression with psychotic features F32.3 [facility] [address] [place] [id number] [address] [place] [address] Jun, [facility] [address] [place] [id number] [address] [place] [address] Jun, Mass of sinus R22.0 ; Low ba ck pain M54.5 and Paroxysmal atrial fibrillation I48.0 [facility] [address] [place] [id number] [address] [place] [address] May, [facility] [address] [facility] [id number] [address] [place] [address] Apr, Posttraumatic stress disorde r 309.81 and Major depressive disorder, recurrent episode, moderate 296.32 [facility] [address] [place] [id number] [address] [place] [address] Apr, [facility] [address] [place] [id number] [address] [place] [address] Mar, Major depressive disorder, r ecurrent episode, moderate 296.32 and Posttraumatic stress disorder 309.81 [place] [address] [place] [id number] [address] [place] [place] [address], [place] [address] Feb, [facility] [address] [id number] [address] [place] [address], [place] [address] Feb, [facility] [address] [id number] [address] [place] [address], [place] [address] January, [facility] [address] [id number] [address] [place] [address], [place] [address] January, [facility] [address] [id number] [address] [place] [address], [place] [address] January, [facility] [address] [id number] [address] [place] [address], [place] [address] Dec, [facility] [address] [id number] [address] [place] [address], [place] [address] Dec, [facility] [address] [id number] [address] [place] [address], [place] [address] Nov, [facility] [address] [id number] [address] [place] [address], [place] [address] Nov, [facility] [address] [id number] [address] [place] [address], [place] [address] Nov, [facility] [address] [id number] [address] [place] [address], [place] [address] Nov, [facility] [address] [id number] [address] [place] [address], [place] [address] Nov, [facility] [address] [id number] [address] [place] [address], [place] [address] Nov, [facility] [address] [id number] [address] [place] [address], [place] [address] Nov, [facility] [address] [id number] [address] [place] [address], [place] [address] Nov, [facility] [address] [id number] [address] [place] [address], [place] [address] Oct, [facility] [address] [id number] [address] [place] [address], [place] [address] Oct, 2014 [facility] [address] [id number] [address] [place] [address], [place] [address] Oct, 2014 [facility] [address] [id number] [address] [place] [address], [place] [address] 16 Oct, 2014 [facility] [address] [id number] [address] [place] [address], [place] [address] Oct, 2014 [facility] [address] [id number] [address] [place] [address], [place] [address] Oct, 2014 [facility] [address] [id number] [address] [place] [address], [place] [address] Oct, 2014 [facility] [address] [id number] [address] [place] [address], [place] [address] Oct, 2014 [facility] [address] [id number] [address] [place] [address], [place] [address] Oct, 2014 [facility] [address] [id number] [address] [place] [address], [place] [address] Oct, 2014 [facility] [address] [id number] [address] [place] [address], [place] [address] 05 Oct, 2014 [facility] [address] [id number] [address] [place] [address], [place] [address] Oct, 2014 [facility] [address] [id number] [address] [place] [address], [place] [address] Oct, 2014 [facility] [address] [id number] [address] [place] [address], [place] [address] Oct, 2014 [facility] [address] [id number] [address] [place] [address], [place] [address] Oct, 2014 [facility] [address] [id number] [address] [place] [address], [place] [address] Oct, 2014 [facility] [address] [id number] [address] [place] [address], [place] [address] 08 Sep, 2014 [facility] [address] [id number] [address] [place] [address], [place] [address] Sep, [facility] [address] [id number] [address] [place] [address], [place] [address] Sep, [facility] [address] [id number] [address] [place] [address], [place] [address] Sep, [facility] [address] [id number] [address] [place] [address], [place] [address] Aug, [facility] [address] [id number] [address] [place] [address], [place] [address] Aug, [facility] [address] [id number] [address] [place] [address], [place] [address] Aug, [facility] [address] [id number] [address] [place] [address], [place] [address] Aug, [facility] [address] [id number] [address] [place] [address], [place] [address] Aug, [facility] [address] [id number] [address] [place] [address], [place] [address] Aug, [facility] [address] [id number] [address] [place] [address], [place] [address] Aug, [facility] [address] [id number] [address] [place] [address], [place] [address] Aug, [facility] [address] [id number] [address] [place] [address], [place] [address] Aug, [facility] [address] [id number] [address] [place] [address], [place] [address] Aug, [facility] [address] [id number] [address] [place] [address], [place] [address] Aug, [facility] [address] [id number] [address] [place] [address] [address] Aug, [facility] [address] [id number] [address] [place] [address], [place] [address] Aug, [facility] [address] [id number] [address] [place] [address], [place] [address] Aug, [facility] [address] [id number] [address] [place] [address], [place] [address] Aug, [facility] [address] [id number] [address] [place] [address], [place] [address] Aug, [facility] [address] [id number] [address] [place] [address], [place] [address] Jul, [facility] [address] [id number] [address] [place] [address], [place] [address] Jul, [facility] [address] [id number] [address] [place] [address], [place] [address] Jul, [facility] [address] [id number] [address] [place] [address], [place] [address] Jul, [facility] [address] [id number] [address] [place] [address], [place] [address] Jul, [facility] [address] [id number] [address] [place] [address], [place] [address] Jul, [facility] [address] [id number] [address] [place] [address], [place] [address] Jun, [facility] [address] [id number] [address] [place] [id number] Jun, [facility] [address] [id number] [address] [place] [address], [place] [address] Jun, [facility] [address] [id number] [address] [place] [address], [place] [address] Jun, [facility] [address] [id number] [address] [place], [place] [address], [place] [address] Jun, [facility] [address] [id number] [address] [place] [address], [place] [address] 07 Jun, 2013 [facility] [address] [id number] [address] [place] [address], [place] [address] 07 Jun, 2013 [facility] [address] [id number] [address] [place] [address], [place] [address] Jun, [facility] [address] [id number] [address] [place] [address], [place] [address] Jun, 2013 [facility] [address] [id number] [address] [place] [address], [place] [address] Jun, 2013 [facility] [address] [id number] [address] [place] [address], [place] [address] Jun, [facility] [address] [id number] [address] [place] [address], [place] [address] Jun, [facility] [address] [id number] [address] [place] [address], [place] [address] Jun, [facility] [address] [id number] [address] [place] [address], [place] [address] Jun, [facility] [address] [id number] [address] [place] [address], [place] [address] 16 May, 2013 [facility] [address] [id number] [address] [place] [address], [place] [address] 16 May, 2013 [facility] [address] [id number] [address] [place] [address], [place] [address] 16 May, 2013 [facility] [address] [id number] [address] [place] [address], [place] [address] 16 May, 2013 [facility] [address] [id number] [address] [place] [address], [place] [address] Apr, [facility] [address] [id number] [address] [place] [address], [place] [address] Apr, [facility] [address] [id number] [address] [place] [address], [place] [address] Apr, [facility] [address] [id number] [address] [place] [address], [place] [address] Apr, [facility] [address] [id number] [address] [place] [address], [place] [address] Mar, [facility] [address] [id number] [address] [place] [address], [place] [address] Mar, [facility] [address] [id number] [address] [place] [address], [place] [address] Mar, [facility] [address] [id number] [address] [place] [address], [place] [address] Mar, [facility] [address] [id number] [address] [place] [address], [place] [address] Mar, [facility] [address] [id number] [address] [place] [address], [place] [address] Mar, [facility] [address] [id number] [address] [place] [address], [place] [address] Mar, [facility] [address] [id number] [address] [place] [address], [place] [address] Mar, [facility] [address] [id number] [address] [place] [address], [place] [address] Mar, [facility] [address] [id number] [address] [place] [address], [place] [address] Mar, [facility] [address] [id number] [address] [place] [address], [place] [address] Mar, [facility] [address] [id number] [address] [place] [address], [place] [address] Mar, [facility] [address] [id number] [address] [place] [address], [place] [address] Feb, [facility] [address] [id number] [address] [place] [address], [place] [address] Feb, [facility] [address] [id number] [address] [place] [address], [place] [address] Feb, [facility] [address] [id number] [facility] [place] [address] Feb, [facility] [address] [id number] [address] [place] [address], [place] [address] Feb, [facility] [address] [id number] [address] [place] [address], [place] [address] Feb, [facility] [address] [id number] [address] [place] [address], [place] [address] January, [facility] [address] [id number] [address] [place] [address], [place] [address] January, [facility] [address] [id number] [address] [place] [address], [place] [address] January, [facility] [address] [id number] [address] [place] [address], [place] [address] January, [facility] [address] [id number] [address] [place] [address], [place] [address] January, [facility] [address] [id number] [address] [place] [address], [place] [address] January, [facility] [address] [id number] [address] [place] [address], [place] [address] Nov, [facility] [address] [id number] [address] [place] [address], [place] [address] Nov, [facility] [address] [id number] [address] [place] [address], [place] [address] Nov, [facility] [address] [id number] [address] [place] [address], [place] [address] Nov, [facility] [address] [id number] [address] [place] [address], [place] [address] Oct, [facility] [address] [id number] [address] [place] [address], [place] [address] Oct, [facility] [address] [id number] [address] [place] [address], [place] [address] Sep, [facility] [address] [id number] [address] [place] [address], [place] [address] Sep, [facility] [address] [id number] [address] [place] [address], [place] [address] Sep, [facility] [address] [id number] [address] [place] [address], [place] [address] Sep, [facility] [address] [id number] [address] [place] [address], [place] [address] Sep, [facility] [address] [id number] [address] [place] [address], [place] [address] Aug, [facility] [address] [id number] [address] [place] [address], [place] [address] Aug, [facility] [address] [id number] [address] [place] [address], [place] [address] Jul, [facility] [address] [id number] [address] [place] [address], [place] [address] Jul, [facility] [address] [id number] [address] [place] [address], [place] [address] Jul, [facility] [address] [id number] [address] [place] [address], [place] [address] Jun, [facility] [address] [id number] [address] [place] [address], [place] [address] Jun, [facility] [address] [id number] [address] [place] [address], [place] [address] Jun, [facility] [address] [id number] [address] [place] [address], [place] [address] Jun, [facility] [address] [id number] [address] [place] [address], [place] [address] Apr, [facility] [address] [id number] [address] [place] [address], [place] [address] Mar, [facility] [address] [id number] [address] [place] [address], [place] [address] Mar, [facility] [address] [id number] [address] [place] [address], [place] [address] January, [facility] [address] [id number] [address] [place] [address], [place] [address] Dec, [facility] [address] [id number] [address] [place] [address], [place] [address] Dec, [facility] [address] [id number] [address] [place] [address], [place] [address] Nov, [facility] [address] [id number] [address] [place] [address], [place] [address] Nov, [facility] [address] [id number] [address] [place] [address], [place] [address] Nov, [facility] [address] [id number] [address] [place] [address], [place] [address] 2012 [facility] [address] [id number] [address] [place] [address], [place] [address] Nov, [facility] [address] [id number] [address] [place]

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
--- OUTSIDE RECORDS SUMMARY | 2020-01-17 19:06 | XMS REPORT ---
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 Active 97594628 Problem History of atrial flutter Z86.79 Acti ve 276717776 Problem Portal vein thrombosis I81 Active 88317015 Problem Chronic pain syndrome G89.4 Active 77384034 Problem Severe major depression with psychotic features F3 2.3 Active 46731923 Problem Mass of sinus R22.0 Active 214000 7 Problem Other chronic pain G89.29 Active 8 8937033 Problem Gastroesophageal reflux disease, esophagitis pre sence not specified K21.9 Active 680930611 Problem Urinary hesitancy R39.11 Active 59 96772 Problem Acute non-recurrent frontal sinusitis J01.10 Active 13375558 Problem Major depressive disorder, recurrent, moderate F33 .1 Active 64173031 Problem Diverticulitis K57.92 Active 40127 6006 Problem Posttraumatic stress disorder F43.10 Active 28001091 Problem Elevated platelet count D47.3 Active 617420065 Problem Chronic hepatitis C without hepatic coma B18.2 Active 047062757 Problem Acquired hypothyroidism E03.9 Active 734554977 Problem Sleep disorder G47.9 Active 71631 005 ALLERGIES No Information ENCOUNTERS Encounter Location Date Diagnosis [address] 340B [id number] [place] [address] Nov, [address] 340[place] [id number] [address] Nov, Chronic pain syndrome G89.4 and Posttraumatic stress disorder F43.[address] 340B [id number] [place] [address] Nov, [facility] [address] [id number] [address] [place] [id number] Oct, [facility] [address] [id number] [address] [place] [id number] Oct, [facility] [address] [place] [address] Oct, [address] [facility] [address] [id number] [place] [address] Oct, [address] 340[address] [id number] [place] [address] Oct, Chronic pain syndrome G89.4 and Posttraumatic stress disorder F43.[address] 340[address] [id number] [place] [address] Oct, [address] 340[place] [id number] [place] [address] Oct, Chronic pain syndrome G89.4 and Posttraumatic stress disorder F43.10 [facility] [address] [id number] [place] [id number] Oct, [address] 340B [id number] [place] [address] Sep, Epigastric abdominal pain R1 0.13 ; Diverticulitis K57.92 and Viral upper respiratory tract infection J06.[address] 340[address] [id number] [place] [address] Sep, Posttraumatic stress disorde r F43.[address] 340[address] [id number] [place] [address] Sep, Chronic pain syndrome G89.4 and Posttraumatic stress disorder F43.[address] 340B [id number] [place] [address] Sep, [facility] [address] [id number] [place] [address] Sep, [address] 340B [id number] [place] [address] Sep, [address] 340B [id number] [place] [address] Sep, Dental abscess K04.7 ; Histo ry of atrial flutter Z86.79 and Neck pain M54.[address] 340[address] [id number] [place] [address] Sep, [address] 340B [id number] [place] [address] Sep, Acquired hypothyroidism E03. 9 [facility] [address] [place] [address] Aug, 9 Posttraumatic stress disorder F43.10 and Chronic pain syndrome G89.[address] 340B [id number] [place] [address] Aug, Chronic pain syndrome G89.4 and Dental caries K02.[address] 340B [id number] [place] [address] Aug, [address] 340B [id number] [place] [address] Jul, Sleep disorder G47.9 [facility] [address] [id number] [address] [place] [id number] Jul, Caries K02.[address] 340B [id number] [place] [address] Jun, Low back pain M54.5 and Othe r chronic pain G89.[address] 340B [id number] [place] [address] Jun, [address] 340B [id number] [place] [address] Jun, Sleep disorder G47.[address] 340B [id number] [place] [address] Jun, Sleep disorder G47.[address] 340B [id number] [place] [address] 07 Jun, 2019 Lightheadedness R42 and Sutter al abscess K04.7 [facility] [address] [id number] [address] [place] [id number] Jun, Dental examination Z01.20 an d Caries K02.[address] 340 [id number] [place] [address] Jun, [address] 340B [id number] [place] [address] Jun, Encounter for immunization Z [address] 340B [id number] [place] [address] Jun, Dental abscess K04.[address] pain, unspecified type R07.[address] 340B [id number] [place] [address] Jun, Encounter for immunization Z [address] 340B [id number] [place] [address] May, Sleep disorder G47.[address] 340B [id number] [place] [address] 24 May, 2019 Chronic pain syndrome G89.[address] 340B [id number] [place] [address] 16 May, 2019 History of atrial flutter Z8 6.79 ; Chronic pain syndrome G89.4 and Acquired hypothyroidism E03.[address] 340B [id number] [place] [address] May, [address] 340B [id number] [place] [address] May, Nausea R11.0 and Lightheaded ness R42 [address] 340B [id number] [place] [address] May, Sleep disorder G47.9 [facility] [address] 340 [id number] [place] [address] Apr, Acute non-recurrent frontal sinusitis J01.10 and Tick bite, initial encounter W57.XXXA [facility] [address] 340B [id number] [place] [address] Apr, Sleep disorder G47.9 [facility] [address] 340[address] [id number] [place] [address] Mar, Sleep disorder G47.9 [facility] [address] 340 [id number] [place] [address] Mar, [facility] [address] 340B [id number] [place] [address] Mar, [facility] [address] 340B [id number] [place] [address] Feb, History of atrial flutter Z8 6.79 and Muscle cramping R25.2 [facility] [address] 340B [id number] [place] [address] Feb, [facility] [address] 340B [id number] [place] [address] Feb, [facility] [address] 340B [id number] [place] [address] Feb, Cellulitis of left upper ext remity L03.114 and Sleep disorder G47.9 [facility] [address] 340B [id number] [place] [address] Feb, Muscle cramping R25.2 [facility] [address] 340B [id number] [place] [address] January, Chronic pain syndrome G89.4 [facility] [address] 340B [id number] [place] [address] January, [facility] [address] 340B [id number] [place] [address] January, Chronic pain syndrome G89.4 ; Dizziness R42 ; Acquired hypothyroidism E03.9 ; Low back pain M54.5 ; Pulmonary embolism without acute cor pulmonale, unspecified chronicity, unspecified pulmonary embolism type I26.99 and Sleep disorder G47.9 [facility] JADIEL [address] 340B [id number] [place] [address] January, [address] 340B [id number] [place] [address] January, [facility] [address] [id number] [address] [place] [address] Sep, Chronic pain syndrome G89.4 [facility] [address] [id number] [address] [place] [address] Sep, [facility] [address] [id number] [address] [place] [address] Sep, [facility] [address] [id number] [address] [place] [address] Sep, [facility] [address] [id number] [address] [place] [address] Sep, [facility] [address] [id number] [address] [place] [address] Sep, [facility] [address] [id number] [address] [place] [address] Sep, [facility] [address] [id number] [address] [place] [address] Aug, [facility] [address] [id number] [address] [place] [address] Aug, Portal vein thrombosis I81 ; Chronic pain syndrome G89.4 ; Other acute pulmonary embolism without acute cor pulmonale I26.99 and Chronic hepatitis C without hepatic coma B18.2 [facility] [address] [id number] [address] [place] [address] Aug, [facility] [address] [facility] [id number] [address] [place] [address] Aug, [facility] [address] [facility] [id number] [address] [place] [address] Jul, Major depressive disorder, r ecurrent, moderate F33.1 and Posttraumatic stress disorder F43.10 [place] [address] [address] [facility] [id number] [address] [place] [address] Jul, Gastroesophageal reflux dise ase, esophagitis presence not specified K21.9 [facility] [address] [id number] [address] [place] [address] Jun, [place] [address] [address] [facility] [id number] [address] [place] [address] Jun, [place] [address] [address] [facility] [id number] [address] [place] [address] Jun, Posttraumatic stress disorde r F43.10 and Severe major depression with psychotic features F32.3 [place] [address] [address] [facility] [id number] [address] [place] [address] Apr, [place] [address] [address] [facility] [id number] [address] [place] [address] Apr, Mass of sinus R22.0 ; Athero sclerotic heart disease of [place] coronary artery with unspecified angina pectoris I25.119 and Elevated platelet count D47.3 [place] [address] [address] [facility] [id number] [address] [place] [address] Apr, Severe major depression with psychotic features F32.3 and Posttraumatic stress disorder F43.10 [place] [address] [address] [facility] [id number] [address] [place] [address] January, [place] [address] [address] [facility] [id number] [address] [place] [address] January, Posttraumatic stress disorde r F43.10 and Severe major depression with psychotic features F32.3 [place] [address] [address] [facility] [id number] [address] [place] [address] Dec, Atherosclerotic heart diseas e of [place] coronary artery with unspecified angina pectoris I25.119 and Elevated platelet count D47.3 [place] [address] [place] [id number] [place] [address] Dec, [place] [address] [place] [id number] [place] [address] Dec, Low energy R53.83 ; Atherosc lerotic heart disease of [place] coronary artery with unspecified angina pectoris I25.119 ; Gastroesophageal reflux disease, esophagitis presence not specified K21.9 and Urinary hesitancy R39.11 [place] [address] [address] Dec, Posttraumatic stress disorde r F43.10 and Severe major depression with psychotic features F32.3 [place] [address] [address] Oct, [place] [address] [address] Sep, Mass of sinus R22.0 [place] [address] [address] Sep, Dysuria R30.0 ; Low back avi n M54.5 ; Other chronic pain G89.29 ; Poor nutrition E63.9 ; Gastroesophageal reflux disease, esophagitis presence not specified K21.9 and Mass of sinus R22.0 [place] [address] [address] Sep, Posttraumatic stress disorde r F43.10 and Severe major depression with psychotic features F32.3 [place] [address] [address] Sep, [place] [address] [address] [place] [id number] [place] [address] Aug, [place] [address] [address] Aug, Encounter for immunization Z 23 [facility] [address] [id number] [address] [place] [address] Jul, Posttraumatic stress disorde r F43.10 ; Severe major depression with psychotic features F32.3 and Major depressive disorder, recurrent, moderate F33.1 [facility] [address] [id number] [address] [place] [address] Jun, [facility] [address] [id number] [address] [place] [address] Jun, [facility] [address] [id number] [address] [place] [address] May, [facility] [address] [id number] [address] [place] [address] Apr, [facility] [address] [id number] [address] [place] [address] Apr, Posttraumatic stress disorde r F43.10 and Severe major depression with psychotic features F32.3 [facility] [address] [id number] [address] [place] [address] Mar, [facility] [address] [id number] [address] [place] [address] Feb, [facility] [address] [id number] [address] [place] [address] January, [facility] [address] [id number] [address] [place] [address] January, Posttraumatic stress disorde r F43.10 and Severe major depression with psychotic features F32.3 [facility] [address] [id number] [address] [place] [address] Dec, [facility] [address] [id number] [address] [place] [address] Nov, [facility] [address] [id number] [address] [place] [address] Nov, [facility] [address] [facility] [id number] [address] [place] [address] Oct, Posttraumatic stress disorde r F43.10 and Severe major depression with psychotic features F32.3 [facility] [address] [facility] [id number] [address] [place] [address] Sep, Encounter for immunization Z 23 ; Posttraumatic stress disorder F43.10 and Severe major depression with psychotic features F32.3 [facility] [address] [facility] [id number] [address] [place] [address] Aug, [facility] [address] [facility] [id number] [address] [place] [address] Aug, [facility] [address] [place] [id number] [address] [place] [address] Jul, Encounter for immunization Z 23 ; Posttraumatic stress disorder F43.10 and Severe major depression with psychotic features F32.3 [facility] [address] [place] [id number] [address] [place] [address] Jun, [facility] [address] [place] [id number] [address] [place] [address] Jun, Mass of sinus R22.0 ; Low ba ck pain M54.5 and Paroxysmal atrial fibrillation I48.0 [facility] [address] [place] [id number] [address] [place] [address] May, [facility] [address] [facility] [id number] [address] [place] [address] Apr, Posttraumatic stress disorde r 309.81 and Major depressive disorder, recurrent episode, moderate 296.32 [facility] [address] [place] [id number] [address] [place] [address] Apr, [facility] [address] [place] [id number] [address] [place] [address] Mar, Major depressive disorder, r ecurrent episode, moderate 296.32 and Posttraumatic stress disorder 309.81 [place] [address] [address] [place] [id number] [address] [place] [address], [place] [address] Feb, [facility] [address] [id number] [address] [place] [address], [place] [address] Feb, [facility] [address] [id number] [address] [place] [address], [place] [address] January, [facility] [address] [id number] [address] [place] [address], [place] [address] January, [facility] [address] [id number] [address] [place] [address], [place] [address] January, [facility] [address] [id number] [address] [place] [address], [place] [address] Dec, [facility] [address] [id number] [address] [place] [address], [place] [address] Dec, [facility] [address] [id number] [address] [place] [address], [place] [address] Nov, [facility] [address] [id number] [address] [place] [address], [place] [address] Nov, [facility] [address] [id number] [address] [place] [address], [place] [address] Nov, [facility] [address] [id number] [address] [place] [address], [place] [address] Nov, [facility] [address] [id number] [address] [place] [address], [place] [address] Nov, [facility] [address] [id number] [address] [place] [address], [place] [address] Nov, [facility] [address] [id number] [address] [place] [address], [place] [address] Nov, [facility] [address] [id number] [address] [place] [address], [place] [address] Nov, [facility] [address] [id number] [address] [place] [address], [place] [address] Oct, [facility] [address] [id number] [address] [place] [address], [place] [address] Oct, 2014 [facility] [address] [id number] [address] [place] [address], [place] [address] Oct, 2014 [facility] [address] [id number] [address] [place] [address], [place] [address] 16 Oct, 2014 [facility] [address] [id number] [address] [place] [address], [place] [address] Oct, 2014 [facility] [address] [id number] [address] [place] [address], [place] [address] Oct, 2014 [facility] [address] [id number] [address] [place] [address], [place] [address] Oct, 2014 [facility] [address] [id number] [address] [place] [address], [place] [address] Oct, 2014 [facility] [address] [id number] [address] [place] [address], [place] [address] Oct, 2014 [facility] [address] [id number] [address] [place] [address], [place] [address] Oct, 2014 [facility] [address] [id number] [address] [place] [address], [place] [address] 05 Oct, 2014 [facility] [address] [id number] [address] [place] [address], [place] [address] Oct, 2014 [facility] [address] [id number] [address] [place] [address], [place] [address] Oct, 2014 [facility] [address] [id number] [address] [place] [address], [place] [address] Oct, 2014 [facility] [address] [id number] [address] [place] [address], [place] [address] Oct, 2014 [facility] [address] [id number] [address] [place] [address], [place] [address] Oct, 2014 [facility] [address] [id number] [address] [place] [address], [place] [address] 08 Sep, 2014 [facility] [address] [id number] [address] [place] [address], [place] [address] Sep, [facility] [address] [id number] [address] [place] [address], [place] [address] Sep, [facility] [address] [id number] [address] [place] [address], [place] [address] Sep, [facility] [address] [id number] [address] [place] [address], [place] [address] Aug, [facility] [address] [id number] [address] [place] [address], [place] [address] Aug, [facility] [address] [id number] [address] [place] [address], [place] [address] Aug, [facility] [address] [id number] [address] [place] [address], [place] [address] Aug, [facility] [address] [id number] [address] [place] [address], [place] [address] Aug, [facility] [address] [id number] [address] [place] [address], [place] [address] Aug, [facility] [address] [id number] [address] [place] [address], [place] [address] Aug, [facility] [address] [id number] [address] [place] [address], [place] [address] Aug, [facility] [address] [id number] [address] [place] [address], [place] [address] Aug, [facility] [address] [id number] [address] [place] [address], [place] [address] Aug, [facility] [address] [id number] [address] [place] [address], [place] [id number] Aug, [facility] [address] [id number] [address] [place] [address] [address] Aug, [facility] [address] [id number] [address] [place] [address], [place] [address] Aug, [facility] [address] [id number] [address] [place] [address], [place] [address] Aug, [facility] [address] [id number] [address] [place] [address], [place] [address] Aug, [facility] [address] [id number] [address] [place] [address], [place] [address] Aug, [facility] [address] [id number] [address] [place] [address], [place] [address] Jul, [facility] [address] [id number] [address] [place] [address], [place] [address] Jul, [facility] [address] [id number] [address] [place] [address], [place] [address] Jul, [facility] [address] [id number] [address] [place] [address], [place] [address] Jul, [facility] [address] [id number] [address] [place] [address], [place] [address] Jul, [facility] [address] [id number] [address] [place] [address], [place] [address] Jul, [facility] [address] [id number] [address] [place] [address], [place] [address] Jun, [facility] [address] [id number] [address] [place] [id number] Jun, [facility] [address] [id number] [address] [place] [address], [place] [address] Jun, [facility] [address] [id number] 21 [place] [address], [place] [address] Jun, [facility] [address] [id number] [address] [place] [address], [place] [address] Jun, [facility] [address] [id number] [address] [place] [address], [place] [address] 07 Jun, 2013 [facility] [address] [id number] [address] [place] [address], [place] [address] 07 Jun, 2013 [facility] [address] [id number] [address] [place] [address], [place] [address] Jun, [facility] [address] [id number] [address] [place] [address], [place] [address] Jun, 2013 [facility] [address] [id number] [address] [place] [address], [place] [address] Jun, 2013 [facility] [address] [id number] [address] [place] [address], [place] [address] Jun, [facility] [address] [id number] [address] [place] [address], [place] [address] Jun, [facility] [address] [id number] [address] [place] [address], [place] [address] Jun, [facility] [address] [id number] [address] [place] [address], [place] [address] Jun, [facility] [address] [id number] [address] [place] [address], [place] [address] 16 May, 2013 [facility] [address] [id number] [address] [place] [address], [place] [address] 16 May, 2013 [facility] [address] [id number] [address] [place] [address], [place] [address] 16 May, 2013 [facility] [address] [id number] [address] [place] [address], [place] [address] 16 May, 2013 [facility] [address] [id number] [address] [place] [address], [place] [address] Apr, [facility] [address] [id number] [address] [place] [address], [place] [address] Apr, [facility] [address] [id number] [address] [place] [address], [place] [address] Apr, [facility] [address] [id number] [address] [place] [address], [place] [address] Apr, [facility] [address] [id number] [address] [place] [address], [place] [address] Mar, [facility] [address] [id number] [address] [place] [address], [place] [address] Mar, [facility] [address] [id number] [address] [place] [address], [place] [address] Mar, [facility] [address] [id number] [address] [place] [address], [place] [address] Mar, [facility] [address] [id number] [address] [place] [address], [place] [address] Mar, [facility] [address] [id number] [address] [place] [address], [place] [address] Mar, [facility] [address] [id number] [address] [place] [address], [place] [address] Mar, [facility] [address] [id number] [address] [place] [address], [place] [address] Mar, [facility] [address] [id number] [address] [place] [address], [place] [address] Mar, [facility] [address] [id number] [address] [place] [address], [place] [address] Mar, [facility] [address] [id number] [address] [place] [address], [place] [address] Mar, [facility] [address] [id number] [address] [place] [address], [place] [address] Mar, [facility] [address] [id number] [address] [place] [address], [place] [address] Feb, [facility] [address] [id number] [address] [place] [address], [place] [address] Feb, [facility] [address] [id number] [address] [place] [address], [place] [address] Feb, [facility] [address] [id number] [facility] [place] [address] Feb, [facility] [address] [id number] [address] [place] [address], [place] [address] Feb, [facility] [address] [id number] [address] [place] [address], [place] [address] Feb, [facility] [address] [id number] [address] [place] [address], [place] [address] January, [facility] [address] [id number] [address] [place] [address], [place] [address] January, [facility] [address] [id number] [address] [place] [address], [place] [address] January, [facility] [address] [id number] [address] [place] [address], [place] [address] January, [facility] [address] [id number] [address] [place] [address], [place] [address] January, [facility] [address] [id number] [address] [place] [address], [place] [address] January, [facility] [address] [id number] [address] [place] [address], [place] [address] Nov, [facility] [address] [id number] [address] [place] [address], [place] [address] Nov, [facility] [address] [id number] [address] [place] [address], [place] [address] Nov, [facility] [address] [id number] [address] [place] [address], [place] [address] Nov, [facility] [address] [id number] [address] [place] [address], [place] [address] Oct, [facility] [address] [id number] [address] [place] [address], [place] [address] Oct, [facility] [address] [id number] [address] [place] [address], [place] [address] Sep, [facility] [address] [id number] [address] [place] [address], [place] [address] Sep, [facility] [address] [id number] [address] [place] [address], [place] [address] Sep, [facility] [address] [id number] [address] [place] [address], [place] [address] Sep, [facility] [address] [id number] [address] [place] [address], [place] [address] Sep, [facility] [address] [id number] [address] [place] [address], [place] [address] Aug, [facility] [address] [id number] [address] [place] [address], [place] [address] Aug, [facility] [address] [id number] [address] [place] [address], [place] [address] Jul, [facility] [address] [id number] [address] [place] [address], [place] [address] Jul, [facility] [address] [id number] [address] [place] [address], [place] [address] Jul, [facility] [address] [id number] [address] [place] [address], [place] [address] Jun, [facility] [address] [id number] [address] [place] [address], [place] [address] Jun, [facility] [address] [id number] [address] [place] [address], [place] [address] Jun, [facility] [address] [id number] [address] [place] [address], [place] [address] Jun, [facility] [address] [id number] [address] [place] [address], [place] [address] Apr, [facility] [address] [id number] [address] [place] [address], [place] [address] Mar, [facility] [address] [id number] [address] [place] [address], [place] [address] Mar, [facility] [address] [id number] [address] [place] [address], [place] [address] January, [facility] [address] [id number] [address] [place] [address], [place] [address] Dec, [facility] [address] [id number] [address] [place] [address], [place] [address] Dec, [facility] [address] [id number] [address] [place] [address], [place] [address] Nov, [facility] [address] [id number] [address] [place] [address], [place] [address] Nov, [facility] [address] [id number] [address] [place] [address], [place] [address] Nov, [facility] [address] [id number] [address] [place] [address], [place] [address] 2012 [facility] [address] [id number]

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
[2020-01-17 19:08] LABS: MAGNESIUM 2.2 MG/DL (1.6-2.4)
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
--- OUTSIDE RECORDS SUMMARY | 2020-01-17 19:09 | XMS REPORT ---
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 Active 83617799 Problem Mass of sinus R22.0 Active 976364 7 Problem History of atrial flutter Z86.79 Acti ve 662672263 Problem Portal vein thrombosis I81 Active 74036507 Problem Chronic pain syndrome G89.4 Active 97444039 Problem Major depressive disorder, recurrent, moderate F33 .1 Active 84878359 Problem Other chronic pain G89.29 Active 8 6889211 Problem Gastroesophageal reflux disease, esophagitis pre sence not specified K21.9 Active 223360198 Problem Sleep disorder G47.9 Active 32238 005 Problem Posttraumatic stress disorder F43.10 Active 47556910 Problem Acute non-recurrent frontal sinusitis J01.10 Active 77350554 Problem Severe major depression with psychotic features F3 2.3 Active 17262498 Problem Urinary hesitancy R39.11 Active 59 98575 Problem Elevated platelet count D47.3 Active 762089925 Problem Chronic hepatitis C without hepatic coma B18.2 Active 299180141 Problem Acquired hypothyroidism E03.9 Active [id number] ALLERGIES No Information ENCOUNTERS Encounter Location Date Diagnosis [address] [address] Jun, [facility] [address] [id number] [place] [id number] Jun, [address] [address] Jun, [address] [address] Jun, Encounter for immunization Z23 [address] [address] Jun, Dental abscess K04.7 and Chest pain, uns pecified type R07.[address] [address] Jun, [address] [address] May, Sleep disorder G47.[address] [address] May, Chronic pain syndrome G89.[address] [address] 16 May, 2019 History of atrial flutter Z86.79 ; Chron ic pain syndrome G89.4 and Acquired hypothyroidism E03.[address] [address] May, [address] [address] May, Nausea R11.0 and Lightheadedness R42 [address] [address] May, Sleep disorder G47.9 [facility] [address] [facility] [place] [address] Apr, Acute non-recurrent frontal sinusitis J0 1.10 and Tick bite, initial encounter W57.XXXA [facility] [address] [address] Apr, Sleep disorder G47.[address] [address] Mar, Sleep disorder G47.9 [facility] [address] [facility] [place] [address] Mar, [address] [address] Mar, [address] [address] Feb, History of atrial flutter Z86.79 and Mus jose cramping R25.[address] [address] Feb, [facility] [address] [address] Feb, [facility] [address] [address] Feb, Cellulitis of left upper extremity L03.1 14 and Sleep disorder G47.9 [facility] JADIEL ANDRADE [address] [address] Feb, Muscle cramping R25.2 [facility] J[facility]IEL ANDRADE [address] [place] [address] January, Chronic pain syndrome G89.4 [facility] JADIEL [address] [place] [address] January, [facility] J[facility]EL [address] [place] [address] January, Chronic pain syndrome G89.4 ; Dizziness R42 ; Acquired hypothyroidism E03.9 ; Low back pain M54.5 ; Pulmonary embolism without acute cor pulmonale, unspecified chronicity, unspecified pulmonary embolism type I26.99 and Sleep disorder G47.9 [facility] JADIEL ANDRADE [address] [place] [address] January, [facility] [address] [place] [address] January, [facility] [address] [facility] [id number] [address] [place] [address] Sep, Chronic pain syndrome G89.4 [facility] [address] [id number] [address] [place] [address] Sep, [facility] [address] [id number] [address] [place] [address] Sep, [facility] [address] [facility] [id number] [address] [place] [address] Sep, [facility] [address] [facility] [id number] [address] [place] [address] Sep, [facility] [address] [facility] [id number] [address] [place] [address] Sep, [facility] [address] [id number] [address] [place] [address] Sep, [facility] [address] [id number] [address] [place] [address] Aug, [facility] [address] [facility] [id number] [address] [place] [address] Aug, Portal vein thrombosis I81 ; Chronic pain syndrome G89.4 ; Other acute pulmonary embolism without acute cor pulmonale I26.99 and Chronic hepatitis C without hepatic coma B18.2 [facility] [address] [id number] [address] [place] [address] Aug, [facility] [address] [facility] [id number] [address] [place] [address] Aug, [facility] [address] [place] [id number] [address] [place] [address] Jul, Major depressive disorder, r ecurrent, moderate F33.1 and Posttraumatic stress disorder F43.10 [facility] [address] [id number] [address] [place] [address] Jul, Gastroesophageal reflux dise ase, esophagitis presence not specified K21.9 [facility] [address] [facility] [id number] [address] [place] [address] Jun, [facility] [address] [facility] [id number] [address] [place] [address] Jun, [facility] [address] [place] [id number] [address] [place] [address] Jun, Posttraumatic stress disorde r F43.10 and Severe major depression with psychotic features F32.3 [facility] [address] [facility] [id number] [address] [place] [address] Apr, [facility] [address] [facility] [id number] [address] [place] [address] Apr, Mass of sinus R22.0 ; Athero sclerotic heart disease of [place] coronary artery with unspecified angina pectoris I25.119 and Elevated platelet count D47.3 [facility] [address] [id number] [address] [place] [address] Apr, Severe major depression with psychotic features F32.3 and Posttraumatic stress disorder F43.10 [place] [address] [id number] [address] [place] [address] January, [place] [address] [id number] [address] [place] [address] January, Posttraumatic stress disorde r F43.10 and Severe major depression with psychotic features F32.3 [place] [address] [id number] [address] [place] [address] Dec, 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 and Elevated platelet count D47.3 [place] [address] [id number] [address] [place] [address] Dec, [place] [address] [id number] [address] [place] [address] Dec, Low energy R53.83 ; Atherosc lerotic heart disease of [place] coronary artery with unspecified angina pectoris I25.119 ; Gastroesophageal reflux disease, esophagitis presence not specified K21.9 and Urinary hesitancy R39.11 [place] [address] [id number] [address] [place] [address] Dec, Posttraumatic stress disorde r F43.10 and Severe major depression with psychotic features F32.3 [place] [address] [id number] [address] [place] [address] Oct, [place] [address] [facility] [id number] [address] [place] [address] Sep, Mass of sinus R22.0 [facility] [address] [facility] [id number] [address] [place] [address] Sep, Dysuria R30.0 ; Low back avi n M54.5 ; Other chronic pain G89.29 ; Poor nutrition E63.9 ; Gastroesophageal reflux disease, esophagitis presence not specified K21.9 and Mass of sinus R22.0 [facility] [address] [id number] [address] [place] [address] Sep, Posttraumatic stress disorde r F43.10 and Severe major depression with psychotic features F32.3 [facility] [address] [id number] [address] [place] [address] Sep, [facility] [address] [id number] [address] [place] [address] Aug, [facility] [address] [id number] [address] [place] [address] Aug, Encounter for immunization Z 23 [facility] [address] [id number] [address] [place] [address] Jul, Posttraumatic stress disorde r F43.10 ; Severe major depression with psychotic features F32.3 and Major depressive disorder, recurrent, moderate F33.1 [facility] [address] [id number] [address] [place] [address] Jun, [facility] [address] [id number] [address] [place] [address] Jun, [facility] [address] [id number] [address] [place] [address] May, [facility] [address] [id number] [address] [place] [address] Apr, [facility] [address] [id number] [address] [place] [address] Apr, Posttraumatic stress disorde r F43.10 and Severe major depression with psychotic features F32.3 [facility] [address] [id number] [address] [place] [address] Mar, [facility] [address] [id number] [address] [place] [address] Feb, [facility] [address] [id number] [address] [place] [address] January, [facility] [address] [facility] [id number] [address] [place] [address] January, Posttraumatic stress disorde r F43.10 and Severe major depression with psychotic features F32.3 [facility] [address] [id number] [address] [place] [address] Dec, [facility] [address] [id number] [address] [place] [address] Nov, [facility] [address] [facility] [id number] [address] [place] [address] Nov, [facility] [address] [facility] [id number] [address] [place] [address] Oct, Posttraumatic stress disorde r F43.10 and Severe major depression with psychotic features F32.3 [facility] [address] [facility] [id number] [address] [place] [address] Sep, Encounter for immunization Z 23 ; Posttraumatic stress disorder F43.10 and Severe major depression with psychotic features F32.3 [facility] [address] [facility] [id number] [address] [place] [address] Aug, [facility] [address] [facility] [id number] [address] [place] [address] Aug, [facility] [address] [facility] [id number] [address] [place] [address] Jul, Encounter for immunization Z 23 ; Posttraumatic stress disorder F43.10 and Severe major depression with psychotic features F32.3 [facility] [address] [facility] [id number] [address] [place] [address] Jun, [facility] [address] [facility] [id number] [address] [place] [address] Jun, Mass of sinus R22.0 ; Low ba ck pain M54.5 and Paroxysmal atrial fibrillation I48.0 [facility] [address] [id number] [address] [place] [address] May, [facility] [address] [id number] [address] [place] [address] Apr, Posttraumatic stress disorde r 309.81 and Major depressive disorder, recurrent episode, moderate 296.32 [facility] [address] [id number] [address] [place] [address] Apr, [facility] [address] [id number] [address] [place] [address] Mar, Major depressive disorder, r ecurrent episode, moderate 296.32 and Posttraumatic stress disorder 309.81 [facility] [address] [id number] [address] [place] [address] Feb, [facility] [address] [id number] [address] [place] [address] Feb, [facility] [address] [id number] [address] [place] [address] January, [facility] [address] [id number] [address] [place] [address] January, [facility] [address] [id number] [address] [place] [address] January, [facility] [address] [id number] [address] [place] [address] Dec, [facility] [address] [id number] [address] [place] [address] Dec, [facility] [address] [id number] [address] [place] [address] Nov, [facility] [address] [id number] [address] [place] [address] Nov, [facility] [address] [id number] [address] [place] [address] Nov, [facility] [address] [id number] [address] [place] [address], [place] [address] 06 Nov, 2014 [facility] [address] [id number] [address] [place] [address], [place] [address] 04 Nov, 2014 [facility] [address] [id number] [address] [place] [address], [place] [address] 04 Nov, 2014 [facility] [address] [id number] [address] [place] [address], [place] [address] Nov, 2014 [facility] [address] [id number] [address] [place] [address], [place] [address] Nov, 2014 [facility] [address] [id number] [address] [place] [address], [place] [address] Oct, 2014 [facility] [address] [id number] [address] [place] [address], [place] [address] Oct, 2014 [facility] [address] [id number] [address] [place] [address], [place] [address] 16 Oct, 2014 [facility] [address] [id number] [address] [place] [address], [place] [address] Oct, 2014 [facility] [address] [id number] [address] [place] [address], [place] [address] Oct, 2014 [facility] [address] [id number] [address] [place] [address], [place] [address] 16 Oct, 2014 [facility] [address] [id number] [address] [place] [address], [place] [address] Oct, 2014 [facility] [address] [id number] [address] [place] [address], [place] [address] Oct, 2014 [facility] [address] [id number] [address] [place] [address], [place] [address] Oct, 2014 [facility] [address] [id number] [address] [place] [address], [place] [address] 06 Oct, 2014 [facility] [address] [id number] [address] [place] [address], [place] [address] Oct, 2014 [facility] [address] [id number] [address] [place] [address], [place] [address] Oct, 2014 [facility] [address] [id number] [address] [place] [address], [place] [address] Oct, 2014 [facility] [address] [id number] [address] [place] [address], [place] [address] Oct, 2014 [facility] [address] [id number] [address] [place] [address], [place] [address] Oct, 2014 [facility] [address] [id number] [address] [place] [address], [place] [address] Oct, [facility] [address] [id number] [address] [place] [address], [place] [address] Sep, [facility] [address] [id number] [address] [place] [address], [place] [address] Sep, [facility] [address] [id number] [address] [place] [address], [place] [address] Sep, [facility] [address] [id number] [address] [place] [address], [place] [address] Sep, [facility] [address] [id number] [address] [place] [address], [place] [address] Aug, [facility] [address] [id number] [address] [place] [address], [place] [address] Aug, [facility] [address] [id number] [address] [place] [address], [place] [address] Aug, [facility] [address] [id number] [address] [place] [address], [place] [address] Aug, [facility] [address] [id number] [address] [place] [address], [place] [address] Aug, [facility] [address] [id number] [address] [place] [address], [place] [address] Aug, [facility] [address] [id number] [address] [place] [address], [place] [address] Aug, [facility] [address] [id number] [address] [place] [address], [place] [address] Aug, [facility] [address] [id number] [address] [place] [address], [place] [address] Aug, [facility] [address] [id number] [address] [place] [address], [place] [address] Aug, [facility] [address] [id number] [address] [place] [address], [place] [address] Aug, [facility] [address] [id number] [address] [place] [address], [place] [address] Aug, [facility] [address] [id number] [address] [place] [address], [place] [address] Aug, [facility] [address] [id number] [address] [place] [address], [place] [address] Aug, [facility] [address] [id number] [address] [place] [address], [place] [address] Aug, [facility] [address] [id number] [address] [place] [address], [place] [address] Aug, [facility] [address] [id number] [address] [place] [address], [place] [address] Jul, [facility] [address] [id number] [address] [place] [address], [place] [address] Jul, [facility] [address] [id number] [address] [place] [address], [place] [address] Jul, [facility] [address] [id number] [address] [place] [address], [place] [address] Jul, [facility] [address] [id number] [address] [place] [address], [place] [address] Jul, [facility] [address] [id number] [address] [place] [address], [place] [address] Jul, [facility] [address] [id number] [address] [place] [address], [place] [address] 15 Jun, 2014 [facility] [address] [id number] [address] [place] [address], [place] [address] 15 Jun, 2014 [facility] [address] [id number] [address] [place] [address], [place] [address] Jun, [facility] [address] [id number] [address] [place] [address], [place] [address] Jun, [facility] [address] [id number] [address] [place] [address], [place] [address] Jun, [facility] [address] [id number] [address] [place] [address], [place] [address] Jun, [facility] [address] [id number] [address] [place] [address], [place] [address] Jun, [facility] [address] [id number] [address] [place] [address] Jun, [facility] [address] [id number] [address] [place] [address], [place] [address] Jun, [facility] [address] [id number] [address] [place] [address] Jun, [facility] [address] [id number] [address] [place] [address] Jun, [facility] [address] [id number] [address] [place] [address] Jun, [facility] [address] [id number] [address] [place] [address], [place] [address] Jun, [facility] [address] [id number] [address] [place] [address] Jun, [facility] [address] [id number] [address] [place] [address], [place] [address] 16 May, 2014 [facility] [address] [id number] [facility] [place] [address] 16 May, 2013 [facility] [address] [id number] [address] [place] [address], [place] [address] May, [facility] [address] [id number] [address] [place] [address], [place] [address] May, [facility] [address] [id number] [address] [place] [address], [place] [address] Apr, [facility] [address] [id number] [address] [place] [address], [place] [address] Apr, [facility] [address] [id number] [address] [place] [address], [place] [address] Apr, [facility] [address] [id number] [address] [place] [address], [place] [address] Apr, [facility] [address] [id number] [address] [place] [address], [place] [address] Mar, [facility] [address] [id number] [address] [place] [address], [place] [address] Mar, [facility] [address] [id number] [address] [place] [address], [place] [address] Mar, [facility] [address] [id number] [address] [place] [address], [place] [address] Mar, [facility] [address] [id number] [address] [place] [address], [place] [address] Mar, [facility] [address] [id number] [address] [place] [address], [place] [address] Mar, [facility] [address] [id number] [address] [place] [address], [place] [address] Mar, [facility] [address] [id number] [address] [place] [address], [place] [address] Mar, [facility] [address] [id number] [address] [place] [address], [place] [address] Mar, [facility] [address] [id number] [address] [place] [address], [place] [address] Mar, [facility] [address] [id number] [address] [place] [address], [place] [address] Mar, [facility] [address] [id number] [address] [place] [address], [place] [address] Mar, [facility] [address] [id number] [address] [place] [address], [place] [address] Feb, [facility] [address] [id number] [address] [place] [address], [place] [address] Feb, [facility] [address] [id number] [address] [place] [address], [place] [address] Feb, [facility] [address] [id number] [address] [place] [address], [place] [address] Feb, [facility] [address] [id number] [address] [place] [address], [place] [address] Feb, [facility] [address] [id number] [address] [place] [address], [place] [address] Feb, [facility] [address] [id number] [address] [place] [address], [place] [address] January, [facility] [address] [id number] [address] [place] [address], [place] [address] January, [facility] [address] [id number] [address] [place] [address], [place] [address] January, [facility] [address] [id number] [address] [place] [address], [place] [address] January, [facility] [address] [id number] [address] [place] [address], [place] [address] January, [facility] [address] [id number] [address] [place] [address], [place] [address] January, [facility] [address] [id number] [address] [place] [address], [place] [address] Nov, [facility] [address] [id number] [address] [place] [address], [place] [address] Nov, [facility] [address] [id number] [address] [place] [address], [place] [address] Nov, [facility] [address] [id number] [address] [place] [address], [place] [address] Nov, [facility] [address] [id number] [address] [place] [address], [place] [address] Oct, [facility] [address] [id number] [address] [place] [address], [place] [address] Oct, [facility] [address] [id number] [address] [place] [address], [place] [address] Sep, [facility] [address] [id number] [address] [place] [address], [place] [address] Sep, [facility] [address] [id number] [address] [place] [address], [place] [address] Sep, [facility] [address] [id number] [address] [place] [address], [place] [address] Sep, [facility] [address] [id number] [address] [place] [address], [place] [address] Sep, [facility] [address] [id number] [address] [place] [address], [place] [address] Aug, [facility] [address] [id number] [address] [place] [address], [place] [address] Aug, [facility] [address] [id number] [address] [place] [address], [place] [address] Jul, [facility] [address] [id number] [address] [place] [address], [place] [address] Jul, [facility] [address] [id number] [address] [place] [address], [place] [address] Jul, [facility] [address] [id number] [facility] [place] [address] Jun, [facility] [address] [id number] [address] [place] [address], [place] [address] Jun, [facility] [address] [id number] [address] [place] [address], [place] [address] Jun, [facility] [address] [id number] [address] [place] [address], [place] [address] Jun, [facility] [address] [id number] [address] [place] [address], [place] [address] Apr, [facility] [address] [id number] [address] [place] [address], [place] [address] Mar, [facility] [address] [id number] [address] [place] [address], [place] [address] Mar, [facility] [address] [id number] [address] [place] [address], [place] [address] January, [facility] [address] [id number] [address] [place] [address], [place] [address] Dec, [facility] [address] [id number] [address] [place] [address], [place] [address] Dec, [facility] [address] [id number] [address] [place] [address], [place] [address] Nov, [facility] [address] [id number] [address] [place] [address], [place] [address] Nov, [facility] [address] [id number] [address] [place] [address], [place] [address] Nov, [facility] [address] [id number] [address] [place] [address], [place] [address] 2012 [facility] [address] [id number] [address] [place] [address], [place] [address] 07 Nov, 2012 [facility] [address] [id number] [address] [place] [address], [place] [address] Nov, [facility] [address] [id number] [address] [place] [address], [place] [address] Oct, [facility] [address] [id number] [address] [place] [address], [place] [address] 15 Sep, 2012 [facility] [address] [id number] [address] [place] [address], [place] [address] 18 Aug, 2012 [facility] [address] [id number] [address] [place] [address], [place] [address] 18 Aug, 2012 [facility] [address] [id number] [address] [place] [address], [place] [address] Aug, [facility] [address] [id number] [address] [place] [address], [place] [address] 18 Aug, 2012 [facility] [address] [id number] [address] [place] [address], [place] [address] 15 Jul, 2012 [facility] [address] [id number] [address] [place] [address], [place] [address] 15 Jul, 2012 [facility] [address] [id number] [address] [place] [address], [place] [address] Jun, [facility] [address] [id number] [address] [place] [address], [place] [address] 26 Jun, 2012 [facility] [address] [id number] [address] [place] [address], [place] [address] 18 Jun, 2012 [facility] [address] [id number] [address] [place] [address] 18 Jun, 2012 [facility] [address] [id number] [address] [place] [address], [place] [address] 21 May, 2012 [facility] [address] [id number] [address] [place] [address] 18 May, 2012 [facility] [address] [id number] [address] [place] [address], [place] [address] 14 May, 2012 [facility] [address] [id number] [address] [place] [address], [place] [address] 10 May, 2012 [facility] [address] [id number] [address] [place] [address], [place] [address] 04 May, 2012 [facility] [address] [id number] [address] [place] [address], [place] [address] Apr, [facility] [address] [id number] [address] [place] [address], [place] [address] Apr, [facility] [address] [id number] [address] [place] [address], [place] [address] Mar, [facility] [address] [id number] [address] [place] [address], [place] [address] Mar, [facility] [address] [id number] [address] [place] [address], [place] [address] Mar, [facility] [address] [id number] [address] [place] [address], [place] [address] Feb, [facility] [address] [id number] [address] [place] [address], [place] [address] January, [facility] [address] [id number] [address] [place] [address], [place] [address] Nov, [facility] [address] [id number] [address] [place] [address], [place] [address] Nov, [facility] [address] [id number] [address] [place] [address], [place] [address] Nov, [facility] [address] [id number] [address] [place] [address], [place] [address] Nov, [facility] [address] [id number] [address] [place] [address], [place] [address] Nov, [facility] [address] [id number] [address] [place] [address], [place] [address] Oct, [facility] [address] [id number] [address] [place] [address], [place] [address] Oct, [facility] [address] [id number] [address] [place] [address], [place] [address] Oct, [facility] [address] [id number] [address] [place] [address], [place] [address] Oct, [facility] [address] [id number] [address] [place] [address], [place] [address] Oct, [facility] [address] [id number] [address] [place] [address], [place] [address] Sep, [facility] [address] [id number] [address] [place] [address], [place] [address] Sep, [facility] [address] [id number] [address] [place] [address], [place] [address] Sep, [facility] [address] [id number] [address] [place]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
--- OUTSIDE RECORDS SUMMARY | 2020-01-17 19:09 | XMS REPORT ---
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 Active 59907286 Problem Mass of sinus R22.0 Active 477377 7 Problem History of atrial flutter Z86.79 Acti ve 196912434 Problem Portal vein thrombosis I81 Active 49187604 Problem Chronic pain syndrome G89.4 Active 14530682 Problem Major depressive disorder, recurrent, moderate F33 .1 Active 18602610 Problem Other chronic pain G89.29 Active 8 3374147 Problem Gastroesophageal reflux disease, esophagitis pre sence not specified K21.9 Active 733318771 Problem Sleep disorder G47.9 Active 79974 005 Problem Posttraumatic stress disorder F43.10 Active 00806638 Problem Acute non-recurrent frontal sinusitis J01.10 Active 94865478 Problem Severe major depression with psychotic features F3 2.3 Active 31468582 Problem Urinary hesitancy R39.11 Active 59 64685 Problem Elevated platelet count D47.3 Active 051700684 Problem Chronic hepatitis C without hepatic coma B18.2 Active 629404501 Problem Acquired hypothyroidism E03.9 Active [id number] ALLERGIES No Information ENCOUNTERS Encounter Location Date Diagnosis [address] [place] [address] Sep, [address] [place] [address] Sep, [address] [place] [address] Sep, Acquired hypothyroidism E03. 9 [facility] [address] [place] [address] Aug, 201 9 Posttraumatic stress disorder F43.10 and Chronic pain syndrome G89.[address] [place] [address] Aug, Chronic pain syndrome G89.4 and Dental caries K02.[address] [place] [address] Aug, [address] [place] [address] Jul, Sleep disorder G47.9 [facility] [address] [id number] Jul, Caries K02.9 [address] [place] [address] Jun, Low back pain M54.5 and Othe r chronic pain G89.29 [address] [place] [address] Jun, [address] [place] [address] Jun, Sleep disorder G47.9 [address] [place] [address] Jun, Sleep disorder G47.9 [address] [place] [address] Jun, Lightheadedness R42 and Carbon al abscess K04.7 [facility] [address] [id number] Jun, Dental examination Z01.20 and Caries K02 .[address] [place] [address] Jun, [address] [place] [address] Jun, Encounter for immunization Z 23 [address] [place] [address] Jun, Dental abscess K04.[address] pain, unspecified type R07.9 [facility] [address] [place] [address] Jun, Encounter for immunization Z 23 [facility] [address] [place] [address] 30 May, 2019 Sleep disorder G47.9 [facility] [address] [place] [address] 24 May, 2019 Chronic pain syndrome G89.4 [facility] [address] [place] [address] 16 May, 2019 History of atrial flutter Z8 6.79 ; Chronic pain syndrome G89.4 and Acquired hypothyroidism E03.9 [facility] [address] [place] [address] May, [address] [place] [address] May, Nausea R11.0 and Lightheaded ness R42 [facility] [address] [place] [address] May, Sleep disorder G47.9 [facility] [address] [place] [address] Apr, Acute non-recurrent frontal sinusitis J01.10 and Tick bite, initial encounter W57.XXXA [facility] [address] [place] [address] Apr, Sleep disorder G47.9 [facility] [address] [place] [address] Mar, Sleep disorder G47.9 [facility] [address] [place] [address] Mar, [facility] [address] [place] [address] Mar, [facility] [address] [place] [address] Feb, History of atrial flutter Z8 6.79 and Muscle cramping R25.2 [facility] [address] [place] [address] Feb, [facility] [address] [place] [address] Feb, [facility] [address] [place] [address] Feb, Cellulitis of left upper ext remity L03.114 and Sleep disorder G47.9 [facility] [address] [place] [address] Feb, Muscle cramping R25.2 [facility] [address] [place] [address] January, Chronic pain syndrome G89.4 [facility] [address] [place] [address] January, [facility] [address] [place] [address] January, Chronic pain syndrome G89.4 ; Dizziness R42 ; Acquired hypothyroidism E03.9 ; Low back pain M54.5 ; Pulmonary embolism without acute cor pulmonale, unspecified chronicity, unspecified pulmonary embolism type I26.99 and Sleep disorder G47.9 [facility] [address] [place] [address] January, [facility] [address] [place] [address] January, [facility] [address] [id number] [place] [address] Sep, Chronic pain syndrome G89.4 [facility] [address] [id number] [place] [address] Sep, [facility] [address] [id number] [place] [address] Sep, [facility] [address] [address] Sep, [facility] [address] [address] Sep, [facility] [address] [address] Sep, [facility] [address] [address] Sep, [facility] [address] [address] Aug, [facility] [address] [address] Aug, Portal vein thrombosis I81 ; Chronic avi n syndrome G89.4 ; Other acute pulmonary embolism without acute cor pulmonale I26.99 and Chronic hepatitis C without hepatic coma B18.2 [place] [address] [address] Aug, [facility] [address] [address] Aug, [place] [address] [address] Jul, Major depressive disorder, recurrent, mo derate F33.1 and Posttraumatic stress disorder F43.10 [place] [address] [address] Jul, Gastroesophageal reflux disease, esophag itis presence not specified K21.9 [facility] [address] [address] Jun, [facility] [address] [address] Jun, [facility] [address] [address] Jun, Posttraumatic stress disorder F43.10 and Severe major depression with psychotic features F32.3 [facility] [address] [address] Apr, [place] [address] [address] Apr, Mass of sinus R22.0 ; Atherosclerotic he art disease of [place] coronary artery with unspecified angina pectoris I25.119 and Elevated platelet count D47.3 [place] [address] [address] Apr, Severe major depression with psychotic f eatures F32.3 and Posttraumatic stress disorder F43.10 [place] [address] [address] January, [place] [address] [address] January, Posttraumatic stress disorder F43.10 and Severe major depression with psychotic features F32.3 [place] [address] [address] Dec, Atherosclerotic heart disease of [place] coronary artery with unspecified angina pectoris I25.119 and Elevated platelet count D47.3 [place] [address] [address] Dec, [place] [address] [address] Dec, Low energy R53.83 ; Atherosclerotic hear t disease of [place] coronary artery with unspecified angina pectoris I25.119 ; Gastroesophageal reflux disease, esophagitis presence not specified K21.9 and Urinary hesitancy R39.11 [place] [address] [address] Dec, Posttraumatic stress disorder F43.10 and Severe major depression with psychotic features F32.3 [place] [address] [address] Oct, [place] [address] [address] Sep, Mass of sinus R22.0 [place] [address] [address] Sep, Dysuria R30.0 ; Low back pain M54.5 ; Ot her chronic pain G89.29 ; Poor nutrition E63.9 ; Gastroesophageal reflux disease, esophagitis presence not specified K21.9 and Mass of sinus R22.0 [facility] [address] [address] Sep, Posttraumatic stress disorder F43.10 and Severe major depression with psychotic features F32.3 [facility] [address] [address] Sep, [facility] [address] [address] Aug, [place] [address] [address] Aug, Encounter for immunization Z23 [place] [address] [address] Jul, Posttraumatic stress disorder F43.10 ; S evere major depression with psychotic features F32.3 and Major depressive disorder, recurrent, moderate F33.1 [facility] [address] [address] Jun, [facility] [address] [address] Jun, [facility] [address] [address] May, [facility] [address] [address] Apr, [facility] [address] [address] Apr, Posttraumatic stress disorder F43.10 and Severe major depression with psychotic features F32.3 [facility] [address] [address] Mar, [facility] [address] [address] Feb, [facility] [address] [address] January, [facility] [address] [address] January, Posttraumatic stress disorder F43.10 and Severe major depression with psychotic features F32.3 [facility] [address] [address] Dec, [facility] [address] [address] Nov, [facility] [address] [address] Nov, [facility] [address] [address] Oct, Posttraumatic stress disorder F43.10 and Severe major depression with psychotic features F32.3 [facility] [address] [address] Sep, Encounter for immunization Z23 ; Posttra umatic stress disorder F43.10 and Severe major depression with psychotic features F32.3 [facility] [address] [address] Aug, [facility] [address] [address] Aug, [facility] [address] [address] Jul, Encounter for immunization Z23 ; Posttra umatic stress disorder F43.10 and Severe major depression with psychotic features F32.3 [facility] [address] [address] Jun, [facility] [address] [address] Jun, Mass of sinus R22.0 ; Low back pain M54. 5 and Paroxysmal atrial fibrillation I48.0 [facility] [address] [address] May, [facility] [address] [id number] [place] [address] Apr, Posttraumatic stress disorder 309.81 and Major depressive disorder, recurrent episode, moderate 296.32 [facility] [address] [place] [id number] [place] [address] Apr, [facility] [address] [place] [address] [id number] [place] [address] Mar, Major depressive disorder, recurrent epi sode, moderate 296.32 and Posttraumatic stress disorder 309.81 [facility] [address] [id number] [place] [address] Feb, [facility] [address] [place] [address] [id number] [place] [address] Feb, [facility] [address] [place] [address] [id number] [place] [address] January, [facility] [address] [id number] [place] [address] January, [facility] [address] [address] [id number] [place] [address] January, [facility] [address] [address] [id number] [place] [address] Dec, [facility] [address] [id number] [place] [address] Dec, [facility] [address] [address] [id number] [place] [address] Nov, [facility] [address] [address] [id number] [place] [address] Nov, [facility] [id number] [place] [address] Nov, [facility] [id number] [place] [address] Nov, [facility] [address] [id number] [place] [address] Nov, [facility] [address] [address] [id number] [place] [address] Nov, 2014 [facility] [place] [facility] [address] [id number] [place] [address] Nov, [facility] [place] [facility] [address] [id number] [place] [address] Nov, 2014 [facility] [place] [facility] [address] [id number] [place] [address] Oct, 2014 [facility] [place] [facility] [address] [id number] [place] [address] Oct, 2014 [facility] [place] [facility] [address] [id number] [place] [address] Oct, 2014 [facility] [place] [facility] [address] [id number] [place] [address] Oct, 2014 [facility] [place] [facility] [address] [id number] [place] [address] Oct, 2014 [facility] [place] [facility] [address] [id number] [place] [address] Oct, 2014 [facility] [place] [facility] [address] [id number] [place] [address] Oct, 2014 [facility] [place] [facility] [address] [id number] [place] [address] Oct, 2014 [facility] [place] [facility] [address] [id number] [place] [address] Oct, 2014 [facility] [place] [facility] [address] [id number] [place] [address] Oct, 2014 [facility] [place] [facility] [address] [id number] [place] [address] Oct, 2014 [facility] [place] [facility] [address] [id number] [place] [address] Oct, 2014 [facility] [place] [facility] [address] [id number] [place] [address] Oct, 2014 [facility] [place] [facility] [address] [id number] [place] [address] Oct, 2014 [facility] [place] [facility] [address] [id number] [place] [address] Oct, 2014 [facility] [place] [facility] [address] [id number] [place] [address] Oct, [facility] [place] [facility] [address] [id number] [place] [address] Sep, [facility] [place] [facility] [address] [id number] [place] [address] Sep, [facility] [place] [facility] [address] [id number] [place] [address] Sep, [facility] [place] [facility] [address] [id number] [place] [address] Sep, [facility] [place] [facility] [address] [id number] [place] [address] Aug, [facility] [place] [facility] [address] [id number] [place] [address] Aug, [facility] [place] [facility] [address] [id number] [place] [address] Aug, [facility] [place] [facility] [address] [id number] [place] [address] Aug, [facility] [place] [facility] [address] [id number] [place] [address] Aug, [facility] [place] [facility] [address] [id number] [place] [address] Aug, [facility] [place] [facility] [address] [id number] [place] [address] Aug, [facility] [place] [facility] [address] [id number] [place] [address] Aug, [facility] [place] [facility] [address] [id number] [place] [address] Aug, [facility] [place] [facility] [address] [id number] [place] [address] Aug, [facility] [place] [facility] [address] [id number] [place] [address] Aug, [facility] [place] [facility] [address] [id number] [place] [address] Aug, [facility] [place] [facility] [address] [id number] [place] [address] Aug, [facility] [place] [facility] [address] [id number] [place] [address] Aug, [facility] [place] [facility] [address] [id number] [place] [address] Aug, [facility] [place] [facility] [address] [id number] [place] [address] Aug, [facility] [place] [facility] [address] [id number] [place] [address] Jul, [facility] [place] [facility] [address] [id number] [place] [address] Jul, [facility] [place] [facility] [address] [id number] [place] [address] Jul, [facility] [place] [facility] [address] [id number] [place] [address] Jul, [facility] [place] [facility] [address] [id number] [place] [address] Jul, [facility] [place] [facility] [address] [id number] [place] [address] Jul, [facility] [place] [facility] [address] [id number] [place] [address] Jun, [facility] [place] [facility] [address] [id number] [place] [address] Jun, [facility] [place] [facility] [address] [id number] [place] [address] Jun, [facility] [place] [facility] [address] [id number] [place] [address] Jun, [facility] [place] [facility] [address] [id number] [place] [address] Jun, [facility] [place] [facility] [address] [id number] [place] [address] Jun, 2013 [facility] [place] [facility] [address] [id number] [place] [address] Jun, 2013 [facility] [place] [facility] [address] [id number] [place] [address] Jun, 2013 [facility] [place] [facility] [address] [id number] [place] [address] Jun, 2013 [facility] [place] [facility] [address] [id number] [place] [address] Jun, 2013 [facility] [place] [facility] [address] [id number] [place] [address] Jun, 2013 [facility] [place] [facility] [address] [id number] [place] [address] Jun, 2013 [facility] [place] [facility] [address] [id number] [place] [address] Jun, 2013 [facility] [place] [facility] [address] [id number] [place] [address] Jun, [facility] [place] [facility] [address] [id number] [place] [address] May, 2013 [facility] [place] [facility] [address] [id number] [place] [address] May, 2013 [facility] [place] [facility] [address] [id number] [place] [address] May, 2013 [facility] [place] [facility] [address] [id number] [place] [address] May, 2013 [facility] [place] [facility] [address] [id number] [place] [address] Apr, [facility] [place] [facility] [address] [id number] [place] [address] Apr, [facility] [place] [facility] [address] [id number] [place] [address] Apr, [facility] [place] [facility] [address] [id number] [place] [address] Apr, [facility] [place] [facility] [address] [id number] [facility] [place] [address] Mar, [facility] [place] [facility] [address] [facility] [id number] [place] [address] Mar, [facility] [place] [facility] [address] [id number] [facility] [place] [address] Mar, [facility] [place] [facility] [address] [facility] [id number] [place] [address] Mar, [facility] [place] [facility] [address] [facility] [id number] [facility] [place] [address] Mar, [facility] [place] [facility] [address] [facility] [id number] [place] [address] Mar, [facility] [place] [facility] [address] [id number] [facility] [place] [address] Mar, [facility] [place] [facility] [address] [id number] [facility] [place] [address] Mar, [facility] [place] [facility] [address] [facility] [id number] [facility] [place] [address] Mar, [facility] [place] [facility] [address] [id number] [place] [address] Mar, [facility] [place] [facility] [address] [id number] [place] [address] Mar, [facility] [place] [facility] [address] [id number] [place] [address] Mar, [facility] [place] [facility] [address] [facility] [id number] [facility] [place] [address] Feb, [facility] [place] [facility] [address] [id number] [place] [address] Feb, [facility] [place] [facility] [address] [facility] [id number] [place] [address] Feb, [facility] [place] [facility] [address] [id number] [place] [address] Feb, [facility] [place] [facility] [address] [facility] [id number] [facility] [place] [address] Feb, [facility] [place] [facility] [address] [facility] [id number] [place] [address] Feb, [facility] [place] [facility] [address] [facility] [id number] [place] [address] January, [facility] [place] [facility] [address] [id number] [place] [address] January, [facility] [place] [facility] [address] [facility] [id number] [place] [address] January, [facility] [place] [facility] [address] [facility] [id number] [place] [address] January, [facility] [place] [facility] [address] [id number] [place] [address] January, [facility] [place] [facility] [address] [id number] [place] [address] January, [facility] [place] [facility] [address] [facility] [id number] [place] [address] Nov, [facility] [address] [facility] [id number] [place] [address] Nov, [facility] [address] [id number] [place] [address] Nov, [facility] [address] [id number] [place] [address] Nov, [facility] [address] [id number] [place] [address] Oct, [facility] [address] [facility] [id number] [place] [address] Oct, [facility] [address] [id number] [place] [address] Sep, [facility] [address] [id number] [place] [address] Sep, [facility] [address] [id number] [place] [address] Sep, [facility] [address] [id number] [place] [address] Sep, [facility] [address] [id number] [place] [address] Sep, [facility] [address] [id number] [place] [address] Aug, [facility] [address] [id number] [place] [address] Aug, [facility] [address] [id number] [place] [address] Jul, [facility] [address] [id number] [place] [address] Jul, [facility] [address] [id number] [place] [address] Jul, [facility] [address] [id number] [place] [address] Jun, [facility] [address] [id number] [place] [address] Jun, [facility] [address] [id number] [place] [address] Jun, [facility] [address] [id number] [place] [address] Jun, [facility] [address] [id number] [place] [address] Apr, [facility] [address] [id number] [place] [address] Mar, [facility] [address] [id number] [place] [address] Mar, [facility] [address] [id number] [place] [address] January, [facility] [address] [id number] [place] [address] Dec, [facility] [address] [id number] [place] [address] Dec, [facility] [address] [id number] [place] [address] Nov, [facility] [address] [id number] [place] [address] Nov, [facility] [address] [id number] [place] [address] Nov, [facility] [address] [id number] [place] [address] 2012 [facility] [address] [id number] [place] [address] 07 Nov, 2012 [facility] [address] [id number] [place] [address] 05 Nov, 2012 [facility] [address] [id number] [place] [address] Oct, [facility] [id number] [place] [address] Sep, [facility] [address] [id number] [place] [address] Aug, [facility] [id number] [place] [address] Aug, [facility] [address] [id number] [place] [address] Aug, [facility] [id number] [place] [address] Aug, [facility] [address] [id number] [place] [address] Jul, [facility] [id number] [place] [address] Jul, [facility] [address] [id number] [place] [address] Jun, [facility] [address] [id number] [place] [address] Jun, [facility] [address] [id number] [place] [address] 18 Jun, 2012 [facility] [address] [id number] [place] [address] 18 Jun, 2012 [facility] [address] [id number] [place] [address] 21 May, 2012 [facility] [address] [id number] [place] [address] 18 May, 2012 [facility] [address] [id number] [place] [address] 14 May, 2012 [facility] [address] [id number] [place] [address] 10 May, 2012 [facility] [address] [id number] [place] [address] 04 May, 2012 [facility] [address] [id number] [place] [address] 30 Apr, 2012 [facility] [address] [id number] [place] [address] Apr, [facility] [address] [id number] [place] [address] Mar, [facility] [address] [id number] [place] [address] Mar, [facility] [address] [id number] [place] [address] Mar, [facility] [address] [id number] [place] [address] Feb, [facility] [address] [id number] [place] [address] January, [facility] [address] [id number] [place] [address] Nov, [facility] [address] [id number] [place] [address] Nov, [facility] [address] [id number] [place] [address] Nov, [facility] [address] [id number] [place] [address] Nov, [facility] [address] [id number] [place] [address] Nov, [facility] [address] [id number] [place] [address] Oct, [facility] [address] [id number] [place] [address] Oct, [facility] [address] [id number] [place] [address] Oct, [facility] [address] [id number] [place] [address] Oct, [facility] [address] [id number] [place] [address] Oct, [facility] [address] [id number] [place] [address] Sep, [facility] [address] [id number] [place] [address] Sep, [facility] [address] [id number] [place] [address] Sep, [facility] [address] [id number] [place] [address] Sep, [facility] [address] [id number] [place] [address] Sep, [facility] [address] [id number] [place] [address] Sep, [facility] [address] [id number] [place] [address] Sep, [facility] [address] [id number] [place] [address] Aug, [facility] [address] [id number] [place] [address] Aug, [facility] [address] [id number] [place] [address] 16 Aug, 2011 [facility] [address] [id number] [place] [address] Aug, [facility] [address] [id number] [place] [address] Aug, [facility] [address] [id number] [place] [address] Aug, [facility] [address] [id number] [place] [address] Jun, [facility] [address] [id number] [place] [address] Jun, [facility] [address] [id number] [place] [address] 14 Jun, 2011 [facility] [id number] [place] [address] 14 Jun, 2011 [facility] [id number] [place] [address] Apr, [facility] [address] [id number] [place] [address] Mar, [facility] [address] [id number] [place] [address] Feb, [facility] [address] [id number] [place] [address] Sep, [facility] [address] [id number] [place] [address] 14 Aug, 2010 [facility] [address] [id number] [place] [address] Aug, [facility] [id number] [place] [address] Jul, [facility] [address] [id number] [place] [address] Jul, [facility] [id number] [place] [address] Jul, [facility] [address] [id number] [place] [address] Jun, [facility] [id number] [place] [address] Apr, [facility] [address] [id number] [place] [address] Oct, [facility] [id number] [place] [address] Aug, [facility] [address] [address] Jun, [facility] [address] [address] Feb, [facility] [id number] [place] [address] Aug, [facility] [address] [address] Jun, [facility] [id number] [place] [address] Jun, IMMUNIZATIONS No Known Immunizations SOCIAL HISTORY [...]
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
--- OUTSIDE RECORDS SUMMARY | 2020-01-17 19:10 | XMS REPORT ---
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 Active 12722095 Problem Mass of sinus R22.0 Active 962335 7 Problem History of atrial flutter Z86.79 Acti ve 545711790 Problem Portal vein thrombosis I81 Active 64420233 Problem Chronic pain syndrome G89.4 Active 98028780 Problem Major depressive disorder, recurrent, moderate F33 .1 Active 73018606 Problem Other chronic pain G89.29 Active 8 1236518 Problem Gastroesophageal reflux disease, esophagitis pre sence not specified K21.9 Active 605429025 Problem Sleep disorder G47.9 Active 13878 005 Problem Posttraumatic stress disorder F43.10 Active 43186378 Problem Acute non-recurrent frontal sinusitis J01.10 Active 04646814 Problem Severe major depression with psychotic features F3 2.3 Active 57186479 Problem Urinary hesitancy R39.11 Active 59 65164 Problem Elevated platelet count D47.3 Active 841319835 Problem Chronic hepatitis C without hepatic coma B18.2 Active 668083194 Problem Acquired hypothyroidism E03.9 Active [id number] ALLERGIES No Information ENCOUNTERS Encounter Location Date Diagnosis [address] [address] Jun, [facility] [address] [id number] [place] [id number] Jun, [address] [address] Jun, [address] [address] Jun, [facility] for [facility] Z[facility] [address] [address] Jun, Dental abscess K04.7 and Chest pain, uns pecified type R07.[address] [address] Jun, [address] [address] May, Sleep disorder G47.[address] [address] May, Chronic pain syndrome G89.[address] [address] 16 May, 2019 History of atrial flutter Z86.79 ; Chron ic pain syndrome G89.4 and Acquired hypothyroidism E03.[address] [address] May, [address] [address] May, Nausea R11.0 and Lightheadedness R42 [address] [address] May, Sleep disorder G47.9 [facility] [address] [place] [place] [address] Apr, Acute non-recurrent frontal sinusitis J0 1.10 and Tick bite, initial encounter W57.XXXA [address] [address] Apr, Sleep disorder G47.[address] [address] Mar, Sleep disorder G47.9 [facility] [address] [place] [place] [address] Mar, [address] [address] Mar, [address] [address] Feb, History of atrial flutter Z86.79 and Mus jose cramping R25.2 [facility] [address] [address] Feb, [facility] [address] [address] Feb, [address] [address] Feb, Cellulitis of left upper extremity L03.1 14 and Sleep disorder G47.[address] [address] Feb, Muscle cramping R25.[address] [place] [address] January, Chronic pain syndrome G89.[address] [address] January, [address] [address] January, Chronic pain syndrome G89.4 ; Dizziness R42 ; Acquired hypothyroidism E03.9 ; Low back pain M54.5 ; Pulmonary embolism without acute cor pulmonale, unspecified chronicity, unspecified pulmonary embolism type I26.99 and Sleep disorder G47.9 [facility] [address] [place] [address] January, [address] [address] January, [facility] [address] [facility] [id number] [address] [place] [address] Sep, Chronic pain syndrome G89.4 [facility] [address] [id number] [address] [place] [address] Sep, [facility] [address] [facility] [id number] [address] [place] [address] Sep, [facility] [address] [facility] [id number] [address] [place] [address] Sep, [facility] [address] [facility] [id number] [address] [place] [address] Sep, [facility] [address] [place] [id number] [address] [place] [address] Sep, [facility] [address] [facility] [id number] [address] [place] [address] Sep, [facility] [address] [facility] [id number] [address] [place] [address] Aug, [facility] [address] [place] [id number] [place] [address] Aug, Portal vein thrombosis I81 ; Chronic pain syndrome G89.4 ; Other acute pulmonary embolism without acute cor pulmonale I26.99 and Chronic hepatitis C without hepatic coma B18.2 [facility] [address] [place] [id number] [address] [place] [address] Aug, [facility] [address] [place] [id number] [address] [place] [address] Aug, [facility] [address] [address] Jul, Major depressive disorder, r ecurrent, moderate F33.1 and Posttraumatic stress disorder F43.10 [place] [address] [address] Jul, Gastroesophageal reflux dise ase, esophagitis presence not specified K21.9 [facility] [address] [place] [address] Jun, [facility] [address] [place] [id number] [address] [place] [address] Jun, [facility] [address] [place] [address] Jun, Posttraumatic stress disorde r F43.10 and Severe major depression with psychotic features F32.3 [facility] [address] [place] [address] Apr, [facility] [address] [address] Apr, Mass of sinus R22.0 ; Athero sclerotic heart disease of bel[place]ski coronary artery with unspecified angina pectoris I25.119 and Elevated platelet count D47.3 [facility] [address] [id number] [address] [place] [address] Apr, Severe major depression with psychotic features F32.3 and Posttraumatic stress disorder F43.10 [facility] [address] [id number] [address] [place] [address] January, [facility] [address] [id number] [address] [place] [address] January, Posttraumatic stress disorde r F43.10 and Severe major depression with psychotic features F32.3 [facility] [address] [id number] [address] [place] [address] Dec, Atherosclerotic heart diseas e of [place] coronary artery with unspecified angina pectoris I25.119 and Elevated platelet count D47.3 [facility] [address] [id number] [address] [place] [address] Dec, [facility] [address] [id number] [address] [place] [address] Dec, Low energy R53.83 ; Atherosc lerotic heart disease of belk[place]ski coronary artery with unspecified angina pectoris I25.119 ; Gastroesophageal reflux disease, esophagitis presence not specified K21.9 and Urinary hesitancy R39.11 [facility] [address] [id number] [address] [place] [address] Dec, Posttraumatic stress disorde r F43.10 and Severe major depression with psychotic features F32.3 [facility] [address] [facility] [id number] [address] [place] [address] Oct, [facility] [address] [facility] [id number] [address] [place] [address] Sep, Mass of sinus R22.0 [facility] [address] [facility] [id number] [address] [place] [address] Sep, Dysuria R30.0 ; Low back avi n M54.5 ; Other chronic pain G89.29 ; Poor nutrition E63.9 ; Gastroesophageal reflux disease, esophagitis presence not specified K21.9 and Mass of sinus R22.0 [facility] [address] [facility] [id number] [address] [place] [address] Sep, Posttraumatic stress disorde r F43.10 and Severe major depression with psychotic features F32.3 [facility] [address] [id number] [address] [place] [address] Sep, [facility] [address] [facility] [id number] [address] [place] [address] Aug, [place] [address] [facility] [id number] [address] [place] [address] Aug, Encounter for immunization Z 23 [facility] [address] [facility] [id number] [address] [place] [address] Jul, Posttraumatic stress disorde r F43.10 ; Severe major depression with psychotic features F32.3 and Major depressive disorder, recurrent, moderate F33.1 [facility] [address] [facility] [id number] [address] [place] [address] Jun, [facility] [address] [facility] [id number] [address] [place] [address] Jun, [facility] [address] [facility] [id number] [address] [place] [address] May, [facility] [address] [id number] [address] [place] [address] Apr, [facility] [address] [facility] [id number] [address] [place] [address] Apr, Posttraumatic stress disorde r F43.10 and Severe major depression with psychotic features F32.3 [facility] [address] [facility] [id number] [address] [place] [address] Mar, [facility] [address] [id number] [address] [place] [address] Feb, [facility] [address] [id number] [address] [place] [address] January, [facility] [address] [id number] [address] [place] [address] January, Posttraumatic stress disorde r F43.10 and Severe major depression with psychotic features F32.3 [facility] [address] [id number] [address] [place] [address] Dec, [facility] [address] [id number] [address] [place] [address] Nov, [facility] [address] [id number] [address] [place] [address] Nov, [facility] [address] [id number] [address] [place] [address] Oct, Posttraumatic stress disorde r F43.10 and Severe major depression with psychotic features F32.3 [facility] [address] [id number] [address] [place] [address] Sep, Encounter for immunization Z 23 ; Posttraumatic stress disorder F43.10 and Severe major depression with psychotic features F32.3 [facility] [address] [id number] [address] [place] [address] Aug, [facility] [address] [id number] [address] [place] [address] Aug, [facility] [address] [id number] [address] [place] [address] Jul, Encounter for immunization Z 23 ; Posttraumatic stress disorder F43.10 and Severe major depression with psychotic features F32.3 [facility] [address] [id number] [address] [place] [address] Jun, [facility] [address] [id number] [address] [place] [address] Jun, Mass of sinus R22.0 ; Low ba ck pain M54.5 and Paroxysmal atrial fibrillation I48.0 [facility] [address] [id number] [address] [place] [address] May, [facility] [address] [id number] [address] [place] [address] Apr, Posttraumatic stress disorde r 309.81 and Major depressive disorder, recurrent episode, moderate 296.32 [facility] [address] [id number] [address] [place] [address] Apr, [facility] [address] [id number] [address] [place] [address] Mar, Major depressive disorder, r ecurrent episode, moderate 296.32 and Posttraumatic stress disorder 309.81 [facility] [address] [id number] [address] [place] [address] Feb, [facility] [address] [id number] [address] [place] [address] Feb, [facility] [address] [id number] [address] [place] [address] January, [facility] [address] [id number] [address] [place] [address] January, [facility] [address] [id number] [address] [place] [address] January, [facility] [address] [id number] [address] [place] [address] Dec, [facility] [address] [id number] [address] [place] [address] Dec, [facility] [address] [id number] [address] [place] [address] Nov, [facility] [address] [id number] [address] [place] [id number] Nov, [facility] [address] [id number] [address] [place] [address], [place] [address] 06 Nov, 2014 [facility] [address] [id number] [address] [place] [address], [place] [address] 06 Nov, 2014 [facility] [address] [id number] [address] [place] [address], [place] [address] 04 Nov, 2014 [facility] [address] [id number] [address] [place] [address], [place] [address] 04 Nov, 2014 [facility] [address] [id number] [address] [place] [address], [place] [address] Nov, 2014 [facility] [address] [id number] [address] [place] [address], [place] [address] Nov, 2014 [facility] [address] [id number] [address] [place] [address], [place] [address] Oct, 2014 [facility] [address] [id number] [address] [place] [address], [place] [address] Oct, 2014 [facility] [address] [id number] [address] [place] [address], [place] [address] 16 Oct, 2014 [facility] [address] [id number] [address] [place] [address], [place] [address] 16 Oct, 2014 [facility] [address] [id number] [address] [place] [address], [place] [address] 16 Oct, 2014 [facility] [address] [id number] [address] [place] [address], [place] [address] 16 Oct, 2014 [facility] [address] [id number] [address] [place] [address], [place] [address] 06 Oct, 2014 [facility] [address] [id number] [address] [place] [address], [place] [address] Oct, 2014 [facility] [address] [id number] [address] [place] [address], [place] [address] 06 Oct, 2014 [facility] [address] [id number] [address] [place] [address], [place] [address] Oct, 2014 [facility] [address] [id number] [address] [place] [address], [place] [address] Oct, 2014 [facility] [address] [id number] [address] [place] [address], [place] [address] Oct, 2014 [facility] [address] [id number] [address] [place] [address], [place] [address] Oct, 2014 [facility] [address] [id number] [address] [place] [address], [place] [address] Oct, 2014 [facility] [address] [id number] [address] [place] [address], [place] [address] Oct, 2014 [facility] [address] [id number] [address] [place] [address], [place] [address] Oct, 2014 [facility] [address] [id number] [address] [place] [address], [place] [address] Sep, [facility] [address] [id number] [address] [place] [address], [place] [address] Sep, [facility] [address] [id number] [address] [place] [address], [place] [address] Sep, [facility] [address] [id number] [address] [place] [address], [place] [address] Sep, [facility] [address] [id number] [address] [place] [address], [place] [address] Aug, [facility] [address] [id number] [address] [place] [address], [place] [address] Aug, [facility] [address] [id number] [address] [place] [address], [place] [address] Aug, [facility] [address] [id number] [address] [place] [address], [place] [address] Aug, [facility] [address] [id number] [address] [place] [address], [place] [address] Aug, [facility] [address] [id number] [facility] [place] [address] Aug, [facility] [address] [id number] [address] [place] [address], [place] [address] Aug, [facility] [address] [id number] [address] [place] [address], [place] [address] Aug, [facility] [address] [id number] [address] [place] [address], [place] [address] Aug, [facility] [address] [id number] [address] [place] [address], [place] [address] Aug, [facility] [address] [id number] [address] [place] [address], [place] [address] Aug, [facility] [address] [id number] [address] [place] [address], [place] [address] Aug, [facility] [address] [id number] [address] [place] [address], [place] [address] Aug, [facility] [address] [id number] [address] [place] [address], [place] [address] Aug, [facility] [address] [id number] [address] [place] [address], [place] [address] Aug, [facility] [address] [id number] [address] [place] [address], [place] [address] Aug, [facility] [address] [id number] [address] [place] [address], [place] [address] Jul, [facility] [address] [id number] [address] [place] [address], [place] [address] Jul, [facility] [address] [id number] [address] [place] [address], [place] [address] Jul, [facility] [address] [id number] [address] [place] [address], [place] [address] Jul, [facility] [address] [id number] [address] [place] [address], [place] [address] Jul, [facility] [address] [id number] [address] [place] [address], [place] [address] Jul, [facility] [address] [id number] [address] [place] [address], [place] [address] Jun, [facility] [address] [id number] [address] [place] [address], [place] [address] Jun, [facility] [address] [id number] [address] [place] [address], [place] [address] Jun, [facility] [address] [id number] [address] [place] [address], [place] [address] Jun, [facility] [address] [id number] [address] [place] [address], [place] [address] Jun, [facility] [address] [id number] [address] [place] [address], [place] [address] Jun, [facility] [address] [id number] [address] [place] [address] Jun, [facility] [address] [id number] [address] [place] [address], [place] [address] Jun, [facility] [address] [id number] [address] [place] [address] Jun, [facility] [address] [id number] [address] [place] [id number] Jun, [facility] [address] [id number] [address] [place] [address] Jun, [facility] [address] [id number] [address] [place] [address], [place] [address] Jun, [facility] [address] [id number] [address] [place] [id number] Jun, [facility] [address] [id number] [address] [place] [id number] Jun, [facility] [address] [id number] [facility] [place] [address] 16 May, 2013 [facility] [address] [id number] [address] [place] [address], [place] [address] May, [facility] [address] [id number] [address] [place] [address], [place] [address] May, [facility] [address] [id number] [address] [place] [address], [place] [address] May, [facility] [address] [id number] [address] [place] [address], [place] [address] Apr, [facility] [address] [id number] [address] [place] [address], [place] [address] Apr, [facility] [address] [id number] [address] [place] [address], [place] [address] Apr, [facility] [address] [id number] [address] [place] [address], [place] [address] Apr, [facility] [address] [id number] [address] [place] [address], [place] [address] Mar, [facility] [address] [id number] [address] [place] [address], [place] [address] Mar, [facility] [address] [id number] [address] [place] [address], [place] [address] Mar, [facility] [address] [id number] [address] [place] [address], [place] [address] Mar, [facility] [address] [id number] [address] [place] [address], [place] [address] Mar, [facility] [address] [id number] [address] [place] [address], [place] [address] Mar, [facility] [address] [id number] [address] [place] [address], [place] [address] Mar, [facility] [address] [id number] [address] [place] [address], [place] [address] Mar, [facility] [address] [id number] [facility] [place] [address] Mar, [facility] [address] [id number] [facility] [place] [address] Mar, [facility] [address] [id number] [facility] [place] [address] Mar, [facility] [address] [id number] [address] [place] [address], [place] [address] Mar, [facility] [address] [id number] [facility] [place] [address] Feb, [facility] [address] [id number] [address] [place] [address], [place] [address] Feb, [facility] [address] [id number] [address] [place] [address], [place] [address] Feb, [facility] [address] [id number] [address] [place] [address], [place] [address] Feb, [facility] [address] [id number] [address] [place] [address], [place] [address] Feb, [facility] [address] [id number] [address] [place] [address], [place] [address] Feb, [facility] [address] [id number] [address] [place] [address], [place] [address] January, [facility] [address] [id number] [address] [place] [address], [place] [address] January, [facility] [address] [id number] [address] [place] [address], [place] [address] January, [facility] [address] [id number] [address] [place] [address], [place] [address] January, [facility] [address] [id number] [address] [place] [address], [place] [address] January, [facility] [facility] [address] [id number] [address] [place] [address], [place] [address] January, [facility] [address] [id number] [address] [place] [address], [place] [address] Nov, [facility] [address] [id number] [address] [place] [address], [place] [address] Nov, [facility] [address] [id number] [address] [place] [address], [place] [address] Nov, [facility] [address] [id number] [address] [place] [address], [place] [address] Nov, [facility] [address] [id number] [address] [place] [address], [place] [address] Oct, [facility] [address] [id number] [address] [place] [address], [place] [address] Oct, [facility] [address] [id number] [address] [place] [address], [place] [address] Sep, [facility] [address] [id number] [address] [place] [address], [place] [address] Sep, [facility] [address] [id number] [address] [place] [address], [place] [address] Sep, [facility] [address] [id number] [address] [place] [address], [place] [address] Sep, [facility] [address] [id number] [address] [place] [address], [place] [address] Sep, [facility] [address] [id number] [address] [place] [address], [place] [address] Aug, [facility] [address] [id number] [address] [place] [address], [place] [address] Aug, [facility] [address] [id number] [address] [place] [address], [place] [address] Jul, [facility] [address] [id number] [address] [place] [address], [place] [address] Jul, [facility] [address] [id number] [address] [place] [address], [place] [address] Jul, [facility] [address] [id number] [address] [place] [address], [place] [address] Jun, [facility] [address] [id number] [address] [place] [address], [place] [address] Jun, [facility] [address] [id number] [address] [place] [address], [place] [address] Jun, [facility] [address] [id number] [address] [place] [address], [place] [address] Jun, [facility] [address] [id number] [address] [place] [address], [place] [address] Apr, [facility] [address] [id number] [address] [place] [address], [place] [address] Mar, [facility] [address] [id number] [address] [place] [address], [place] [address] Mar, [facility] [address] [id number] [address] [place] [address], [place] [address] January, [facility] [address] [id number] [address] [place] [address], [place] [address] Dec, [facility] [address] [id number] [address] [place] [address], [place] [address] Dec, [facility] [address] [id number] [address] [place] [address], [place] [address] Nov, [facility] [address] [id number] [address] [place] [address], [place] [address] Nov, [facility] [address] [id number] [address] [place] [address], [place] [address] 09 Nov, 2012 [facility] [address] [id number] [address] [place] [address], [place] [address] 2012 [facility] [address] [id number] [address] [place] [address], [place] [address] Nov, [facility] [address] [id number] [address] [place] [address], [place] [address] 05 Nov, 2012 [facility] [address] [id number] [address] [place] [address], [place] [address] 20 Oct, 2012 [facility] [address] [id number] [address] [place] [address], [place] [address] 15 Sep, 2012 [facility] [address] [id number] [address] [place] [address], [place] [address] 18 Aug, 2012 [facility] [address] [id number] [address] [place] [address], [place] [address] 18 Aug, 2012 [facility] [address] [id number] [address] [place] [address], [place] [address] Aug, [facility] [address] [id number] [address] [place] [address], [place] [address] Aug, [facility] [address] [id number] [address] [place] [address], [place] [address] 15 Jul, 2012 [facility] [address] [id number] [address] [place] [address], [place] [address] 15 Jul, 2012 [facility] [address] [id number] [address] [place] [address], [place] [address] Jun, [facility] [address] [id number] [address] [place] [address], [place] [address] Jun, [facility] [address] [id number] [address] [place] [address] Jun, [facility] [address] [id number] [address] [place] [address], [place] [address] 18 Jun, 2012 [facility] [address] [id number] [address] [place] [address], [place] [address] May, [facility] [address] [id number] [address] [place] [address], [place] [address] 18 May, 2012 [facility] [address] [id number] [address] [place] [address], [place] [address] 14 May, 2012 [facility] [address] [id number] [address] [place] [address], [place] [address] 10 May, 2012 [facility] [address] [id number] [address] [place] [address], [place] [address] 04 May, 2012 [facility] [address] [id number] [address] [place] [address], [place] [address] 30 Apr, 2012 [facility] [address] [id number] [address] [place] [address], [place] [address] Apr, [facility] [address] [id number] [address] [place] [address], [place] [address] Mar, [facility] [address] [id number] [address] [place] [address], [place] [address] Mar, [facility] [address] [id number] [address] [place] [address], [place] [address] Mar, [facility] [address] [id number] [address] [place] [address], [place] [address] Feb, [facility] [address] [id number] [address] [place] [address], [place] [address] January, [facility] [address] [id number] [address] [place] [address], [place] [address] Nov, [facility] [address] [id number] [address] [place] [address], [place] [address] Nov, [facility] [address] [id number] [address] [place] [address], [place] [address] Nov, [facility] [address] [id number] [address] [place] [address], [place] [address] 2011 [facility] [address] [id number] [address] [place] [address], [place] [address] Nov, [facility] [address] [id number] [address] [place] [address], [place] [address] Oct, [facility] [address] [id number] [address] [place] [address], [place] [address] Oct, [facility] [address] [id number] [address] [place] [address], [place] [address] Oct, [facility] [address] [id number] [address] [place] [address], [place] [address] 13 Oct, 2011 [facility] [address] [id number] [address] [place] [address], [place] [address] Oct, [facility] [address] [id number] [address] [place] [address], [place] [address] Sep, [facility] [address] [id number] [address] [place] [address], [place] [address] Sep, [facility] [address] [id number] [address] [place] [address], [place] [address] Sep, [facility] [address] [id number] [address] [place] [address], [place] [address] Sep, [facility] [address] [id number] [address] [place] [address], [place] [address] Sep, [facility] [address] [id number] [address] [place] [address], [place] [address] Sep, [facility] [address] [id number] [address] [place] [address], [place] [address] Sep, [facility] [address] [id number] [address] [place] [address], [place]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
--- OUTSIDE RECORDS SUMMARY | 2020-01-17 19:10 | XMS REPORT ---
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 Active 68960226 Problem Mass of sinus R22.0 Active 110346 7 Problem History of atrial flutter Z86.79 Acti ve 913291595 Problem Portal vein thrombosis I81 Active 58928352 Problem Chronic pain syndrome G89.4 Active 27143012 Problem Major depressive disorder, recurrent, moderate F33 .1 Active 50909111 Problem Other chronic pain G89.29 Active 8 2888907 Problem Gastroesophageal reflux disease, esophagitis pre sence not specified K21.9 Active 273579264 Problem Sleep disorder G47.9 Active 86934 005 Problem Posttraumatic stress disorder F43.10 Active 51727251 Problem Acute non-recurrent frontal sinusitis J01.10 Active 95363211 Problem Severe major depression with psychotic features F3 2.3 Active 03811855 Problem Urinary hesitancy R39.11 Active 59 53551 Problem Elevated platelet count D47.3 Active 648856147 Problem Chronic hepatitis C without hepatic coma B18.2 Active 528976537 Problem Acquired hypothyroidism E03.9 Active [id number] ALLERGIES No Information ENCOUNTERS Encounter Location Date Diagnosis [address] [address] Jun, [facility] [address] [id number] [place] [id number] Jun, [address] [address] Jun, [address] [address] Jun, Encounter for immunization Z23 [address] [address] Jun, Dental abscess K04.7 and Chest pain, uns pecified type R07.[address] [address] Jun, [address] [address] May, Sleep disorder G47.[address] [address] May, Chronic pain syndrome G89.[address] [address] 16 May, 2019 History of atrial flutter Z86.79 ; Chron ic pain syndrome G89.4 and Acquired hypothyroidism E03.[address] [address] May, [address] [address] May, Nausea R11.0 and Lightheadedness R42 [address] [address] May, Sleep disorder G47.9 [facility] [address] [facility] [place] [address] Apr, Acute non-recurrent frontal sinusitis J0 1.10 and Tick bite, initial encounter W57.XXXA [facility] [address] [address] Apr, Sleep disorder G47.[address] [address] Mar, Sleep disorder G47.9 [facility] [address] [place] [facility] [place] [address] Mar, [address] [address] Mar, [address] [address] Feb, History of atrial flutter Z86.79 and Mus jose cramping R25.[address] [address] Feb, [facility] [place] ANDRADE [address] [address] Feb, [facility] [place] ANDRADE [address] [address] Feb, Cellulitis of left upper extremity L03.1 14 and Sleep disorder G47.9 [facility] JADIEL ANDRADE [address] [address] Feb, Muscle cramping R25.2 [facility] JADIEL ANDRADE [address] [place] [address] January, Chronic pain syndrome G89.4 [facility] JADIEL [address] [place] [address] January, [facility] [address] [place] [address] January, Chronic pain syndrome G89.4 ; Dizziness R42 ; Acquired hypothyroidism E03.9 ; Low back pain M54.5 ; Pulmonary embolism without acute cor pulmonale, unspecified chronicity, unspecified pulmonary embolism type I26.99 and Sleep disorder G47.9 [facility] JADIEL ANDRADE [address] [place] [address] January, [facility] [place] [address] [place] [address] January, [facility] [address] [facility] [id number] [address] [place] [address] Sep, Chronic pain syndrome G89.4 [facility] [address] [id number] [address] [place] [address] Sep, [facility] [address] [id number] [address] [place] [id number] Sep, [facility] [address] [facility] [id number] [address] [place] [address] Sep, [facility] [address] [facility] [id number] [address] [place] [address] Sep, [facility] [address] [facility] [id number] [address] [place] [address] Sep, [facility] [address] [id number] [address] [place] [address] Sep, [facility] [address] [id number] [address] [place] [address] Aug, [facility] [address] [facility] [id number] [address] [place] [address] Aug, Portal vein thrombosis I81 ; Chronic pain syndrome G89.4 ; Other acute pulmonary embolism without acute cor pulmonale I26.99 and Chronic hepatitis C without hepatic coma B18.2 [facility] [address] [id number] [address] [place] [address] Aug, [facility] [address] [facility] [id number] [address] [place] [address] Aug, [facility] [address] [place] [id number] [address] [place] [address] Jul, Major depressive disorder, r ecurrent, moderate F33.1 and Posttraumatic stress disorder F43.10 [facility] [address] [id number] [address] [place] [address] Jul, Gastroesophageal reflux dise ase, esophagitis presence not specified K21.9 [facility] [address] [facility] [id number] [address] [place] [address] Jun, [facility] [address] [facility] [id number] [address] [place] [address] Jun, [facility] [address] [place] [id number] [address] [place] [id number] Jun, Posttraumatic stress disorde r F43.10 and Severe major depression with psychotic features F32.3 [facility] [address] [facility] [id number] [address] [place] [address] Apr, [facility] [address] [facility] [id number] [address] [place] [address] Apr, Mass of sinus R22.0 ; Athero sclerotic heart disease of inupiat coronary artery with unspecified angina pectoris I25.119 and Elevated platelet count D47.3 [facility] [address] [id number] [address] [place] [address] Apr, Severe major depression with psychotic features F32.3 and Posttraumatic stress disorder F43.10 [place] [address] [id number] [address] [place] [id number] January, [place] [address] [id number] [address] [place] [address] January, Posttraumatic stress disorde r F43.10 and Severe major depression with psychotic features F32.3 [place] [address] [id number] [address] [place] [id number] Dec, 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 and Elevated platelet count D47.3 [place] [address] [id number] [address] [place] [address] Dec, [place] [address] [id number] [address] [place] [address] Dec, Low energy R53.83 ; Atherosc lerotic heart disease of inupiat coronary artery with unspecified angina pectoris I25.119 ; Gastroesophageal reflux disease, esophagitis presence not specified K21.9 and Urinary hesitancy R39.11 [place] [address] [id number] [address] [place] [id number] Dec, Posttraumatic stress disorde r F43.10 and Severe major depression with psychotic features F32.3 [place] [address] [id number] [address] [place] [id number] Oct, [place] [address] [facility] [id number] [address] [place] [address] Sep, Mass of sinus R22.0 [facility] [address] [facility] [id number] [address] [place] [address] Sep, Dysuria R30.0 ; Low back vai n M54.5 ; Other chronic pain G89.29 ; Poor nutrition E63.9 ; Gastroesophageal reflux disease, esophagitis presence not specified K21.9 and Mass of sinus R22.0 [facility] [address] [id number] [address] [place] [phone] Sep, Posttraumatic stress disorde r F43.10 and Severe major depression with psychotic features F32.3 [facility] [address] [id number] [address] [place] [id number] Sep, [facility] [address] [id number] [address] [place] [address] Aug, [facility] [address] [id number] [address] [place] [address] Aug, Encounter for immunization Z 23 [facility] [address] [id number] [address] [place] [address] Jul, Posttraumatic stress disorde r F43.10 ; Severe major depression with psychotic features F32.3 and Major depressive disorder, recurrent, moderate F33.1 [facility] [address] [id number] [address] [place] [phone] Jun, [facility] [address] [id number] [address] [place] [id number] Jun, [facility] [address] [id number] [address] [place] [phone] May, [facility] [address] [id number] [address] [place] [id number] Apr, [facility] [address] [id number] [address] [place] [address] Apr, Posttraumatic stress disorde r F43.10 and Severe major depression with psychotic features F32.3 [facility] [address] [id number] [address] [place] [id number] Mar, [facility] [address] [id number] [address] [place] [id number] Feb, [facility] [address] [id number] [address] [place] [id number] January, [facility] [address] [facility] [id number] [address] [place] [id number] January, Posttraumatic stress disorde r F43.10 and Severe major depression with psychotic features F32.3 [facility] [address] [id number] [address] [place] [phone] Dec, [facility] [address] [id number] [address] [place] [id number] Nov, [facility] [address] [facility] [id number] [address] [place] [id number] Nov, [facility] [address] [facility] [id number] [address] [place] [address] Oct, Posttraumatic stress disorde r F43.10 and Severe major depression with psychotic features F32.3 [facility] [address] [facility] [id number] [address] [place] [id number] Sep, Encounter for immunization Z 23 ; Posttraumatic stress disorder F43.10 and Severe major depression with psychotic features F32.3 [facility] [address] [facility] [id number] [address] [place] [id number] Aug, [facility] [address] [facility] [id number] [address] [place] [phone] Aug, [facility] [address] [facility] [id number] [address] [place] [id number] Jul, Encounter for immunization Z 23 ; Posttraumatic stress disorder F43.10 and Severe major depression with psychotic features F32.3 [facility] [address] [facility] [id number] [address] [place] [id number] Jun, [facility] [address] [facility] [id number] [address] [place] [id number] Jun, Mass of sinus R22.0 ; Low ba ck pain M54.5 and Paroxysmal atrial fibrillation I48.0 [facility] [address] [id number] [address] [place] [id number] May, [facility] [address] [id number] [address] [place] [address] Apr, Posttraumatic stress disorde r 309.81 and Major depressive disorder, recurrent episode, moderate 296.32 [facility] [address] [id number] [address] [place] [id number] Apr, [facility] [address] [id number] [address] [place] [id number] Mar, Major depressive disorder, r ecurrent episode, moderate 296.32 and Posttraumatic stress disorder 309.81 [facility] [address] [id number] [address] [place] [id number] Feb, [facility] [address] [id number] [address] [place] [phone] Feb, [facility] [address] [id number] [address] [place] [id number] January, [facility] [address] [id number] [address] [place] [phone] January, [facility] [address] [id number] [address] [place] [phone] January, [facility] [address] [id number] [address] [place] [id number] Dec, [facility] [address] [id number] [address] [place] [phone] Dec, [facility] [address] [id number] [address] [place] [phone] Nov, [facility] [address] [id number] [address] [place] [id number] Nov, [facility] [address] [id number] [address] [place] [phone] Nov, [facility] [address] [id number] [address] [place] [address], [place] [address] 06 Nov, 2014 [facility] [address] [id number] [address] [place] [address], [place] [address] 04 Nov, 2014 [facility] [address] [id number] [address] [place] [address], [place] [address] 04 Nov, 2014 [facility] [address] [id number] [address] [place] [address], [place] [address] Nov, 2014 [facility] [address] [id number] [address] [place] [address], [place] [address] Nov, 2014 [facility] [address] [id number] [address] [place] [address], [place] [address] Oct, 2014 [facility] [address] [id number] [address] [place] [address], [place] [address] Oct, 2014 [facility] [address] [id number] [address] [place] [address], [place] [address] 16 Oct, 2014 [facility] [address] [id number] [address] [place] [address], [place] [address] Oct, 2014 [facility] [address] [id number] [address] [place] [address], [place] [address] Oct, 2014 [facility] [address] [id number] [address] [place] [address], [place] [address] 16 Oct, 2014 [facility] [address] [id number] [address] [place] [address], [place] [address] Oct, 2014 [facility] [address] [id number] [address] [place] [address], [place] [address] Oct, 2014 [facility] [address] [id number] [address] [place] [address], [place] [address] Oct, 2014 [facility] [address] [id number] [address] [place] [address], [place] [address] 06 Oct, 2014 [facility] [address] [id number] [address] [place] [address], [place] [address] Oct, 2014 [facility] [address] [id number] [address] [place] [address], [place] [address] Oct, 2014 [facility] [address] [id number] [address] [place] [address], [place] [address] Oct, 2014 [facility] [address] [id number] [address] [place] [address], [place] [address] Oct, 2014 [facility] [address] [id number] [address] [place] [address], [place] [address] Oct, 2014 [facility] [address] [id number] [address] [place] [address], [place] [address] Oct, [facility] [address] [id number] [address] [place] [address], [place] [address] Sep, [facility] [address] [id number] [address] [place] [address], [place] [address] Sep, [facility] [address] [id number] [address] [place] [address], [place] [address] Sep, [facility] [address] [id number] [address] [place] [address], [place] [address] Sep, [facility] [address] [id number] [address] [place] [address], [place] [address] Aug, [facility] [address] [id number] [address] [place] [address], [place] [address] Aug, [facility] [address] [id number] [address] [place] [address], [place] [address] Aug, [facility] [address] [id number] [address] [place] [address], [place] [address] Aug, [facility] [address] [id number] [address] [place] [address], [place] [address] Aug, [facility] [address] [id number] [address] [place] [address], [place] [address] Aug, [facility] [address] [id number] [address] [place] [address], [place] [address] Aug, [facility] [address] [id number] [address] [place] [address], [place] [address] Aug, [facility] [address] [id number] [address] [place] [address], [place] [address] Aug, [facility] [address] [id number] [address] [place] [address], [place] [address] Aug, [facility] [address] [id number] [address] [place] [address], [place] [address] Aug, [facility] [address] [id number] [address] [place] [address], [place] [address] Aug, [facility] [address] [id number] [address] [place] [address], [place] [address] Aug, [facility] [address] [id number] [address] [place] [address], [place] [address] Aug, [facility] [address] [id number] [address] [place] [address], [place] [address] Aug, [facility] [address] [id number] [address] [place] [address], [place] [address] Aug, [facility] [address] [id number] [address] [place] [address], [place] [address] Jul, [facility] [address] [id number] [address] [place] [address], [place] [address] Jul, [facility] [address] [id number] [address] [place] [address], [place] [address] Jul, [facility] [address] [id number] [address] [place] [address], [place] [address] Jul, [facility] [address] [id number] [address] [place] [address], [place] [address] Jul, [facility] [address] [id number] [address] [place] [address], [place] [address] Jul, [facility] [address] [id number] [address] [place] [address], [place] [address] 15 Jun, 2014 [facility] [address] [id number] [address] [place] [address], [place] [address] 15 Jun, 2014 [facility] [address] [id number] [address] [place] [address], [place] [address] Jun, [facility] [address] [id number] [address] [place] [address], [place] [address] Jun, [facility] [address] [id number] [address] [place] [address], [place] [address] Jun, [facility] [address] [id number] [address] [place] [address], [place] [address] Jun, [facility] [address] [id number] [address] [place] [address], [place] [address] Jun, [facility] [address] [id number] [address] [place] [id number] Jun, [facility] [address] [id number] [address] [place] [address], [place] [address] Jun, [facility] [address] [id number] [address] [place] [id number] Jun, [facility] [address] [id number] [address] [place] [id number] Jun, [facility] [address] [id number] [address] [place] [id number] Jun, [facility] [address] [id number] [address] [place] [address], [place] [address] Jun, [facility] [address] [id number] [address] [place] [id number] Jun, [facility] [address] [id number] [address] [place] [address], [place] [address] 16 May, 2014 [facility] [address] [id number] [facility][note 3][facility] [place] [id number] 16 May, 2013 [facility] [address] [id number] [address] [place] [address], [place] [address] May, [facility] [address] [id number] [address] [place] [address], [place] [address] May, [facility] [address] [id number] [address] [place] [address], [place] [address] Apr, [facility] [address] [id number] [address] [place] [address], [place] [address] Apr, [facility] [address] [id number] [address] [place] [address], [place] [address] Apr, [facility] [address] [id number] [address] [place] [address], [place] [address] Apr, [facility] [address] [id number] [address] [place] [address], [place] [address] Mar, [facility] [address] [id number] [address] [place] [address], [place] [address] Mar, [facility] [address] [id number] [address] [place] [address], [place] [address] Mar, [facility] [address] [id number] [address] [place] [address], [place] [address] Mar, [facility] [address] [id number] [address] [place] [address], [place] [address] Mar, [facility] [address] [id number] [address] [place] [address], [place] [address] Mar, [facility] [address] [id number] [address] [place] [address], [place] [address] Mar, [facility] [address] [id number] [address] [place] [address], [place] [address] Mar, [facility] [address] [id number] [address] [place] [address], [place] [address] Mar, [facility] [address] [id number] [address] [place] [address], [place] [address] Mar, [facility] [address] [id number] [address] [place] [address], [place] [address] Mar, [facility] [address] [id number] [address] [place] [address], [place] [address] Mar, [facility] [address] [id number] [address] [place] [address], [place] [address] Feb, [facility] [address] [id number] [address] [place] [address], [place] [address] Feb, [facility] [address] [id number] [address] [place] [address], [place] [address] Feb, [facility] [address] [id number] [address] [place] [address], [place] [address] Feb, [facility] [address] [id number] [address] [place] [address], [place] [address] Feb, [facility] [address] [id number] [address] [place] [address], [place] [address] Feb, [facility] [address] [id number] [address] [place] [address], [place] [address] January, [facility] [address] [id number] [address] [place] [address], [place] [address] January, [facility] [address] [id number] [address] [place] [address], [place] [address] January, [facility] [address] [id number] [address] [place] [address], [place] [address] January, [facility] [address] [id number] [address] [place] [address], [place] [address] January, [facility] [address] [id number] [address] [place] [address], [place] [address] January, [facility] [address] [id number] [address] [place] [address], [place] [address] Nov, [facility] [address] [id number] [address] [place] [address], [place] [address] Nov, [facility] [address] [id number] [address] [place] [address], [place] [address] Nov, [facility] [address] [id number] [address] [place] [address], [place] [address] Nov, [facility] [address] [id number] [address] [place] [address], [place] [address] Oct, [facility] [address] [id number] [address] [place] [address], [place] [address] Oct, [facility] [address] [id number] [address] [place] [address], [place] [address] Sep, [facility] [address] [id number] [address] [place] [address], [place] [address] Sep, [facility] [address] [id number] [address] [place] [address], [place] [address] Sep, [facility] [address] [id number] [address] [place] [address], [place] [address] Sep, [facility] [address] [id number] [address] [place] [address], [place] [address] Sep, [facility] [address] [id number] [address] [place] [address], [place] [address] Aug, [facility] [address] [id number] [address] [place] [address], [place] [address] Aug, [facility] [address] [id number] [address] [place] [address], [place] [address] Jul, [facility] [address] [id number] [address] [place] [address], [place] [address] Jul, [facility] [address] [id number] [address] [place] [address], [place] [address] Jul, [facility] [address] [id number] [facility] [place] [address] Jun, [facility] [address] [id number] [address] [place] [address], [place] [address] Jun, [facility] [address] [id number] [address] [place] [address], [place] [address] Jun, [facility] [address] [id number] [address] [place] [address], [place] [address] Jun, [facility] [address] [id number] [address] [place] [address], [place] [address] Apr, [facility] [address] [id number] [address] [place] [address], [place] [address] Mar, [facility] [address] [id number] [address] [place] [address], [place] [address] Mar, [facility] [address] [id number] [address] [place] [address], [place] [address] January, [facility] [address] [id number] [address] [place] [address], [place] [address] Dec, [facility] [address] [id number] [address] [place] [address], [place] [address] Dec, [facility] [address] [id number] [address] [place] [address], [place] [address] Nov, [facility] [address] [id number] [address] [place] [address], [place] [address] Nov, [facility] [address] [id number] [address] [place] [address], [place] [address] Nov, [facility] [address] [id number] [address] [place] [address], [place] [address] 2012 [facility] [address] [id number] [address] [place] [address], [place] [address] 07 Nov, 2012 [facility] [address] [id number] [address] [place] [address], [place] [address] Nov, [facility] [address] [id number] [address] [place] [address], [place] [address] Oct, [facility] [address] [id number] [address] [place] [address], [place] [address] 15 Sep, 2012 [facility] [address] [id number] [address] [place] [address], [place] [address] 18 Aug, 2012 [facility] [address] [id number] [address] [place] [address], [place] [address] 18 Aug, 2012 [facility] [address] [id number] [address] [place] [address], [place] [address] Aug, [facility] [address] [id number] [address] [place] [address], [place] [address] 18 Aug, 2012 [facility] [address] [id number] [address] [place] [address], [place] [address] 15 Jul, 2012 [facility] [address] [id number] [address] [place] [address], [place] [address] 15 Jul, 2012 [facility] [address] [id number] [address] [place] [address], [place] [address] Jun, [facility] [address] [id number] [address] [place] [address], [place] [address] 26 Jun, 2012 [facility] [address] [id number] [address] [place] [address], [place] [address] 18 Jun, 2012 [facility] [address] [id number] [address] [place] [id number] 18 Jun, 2012 [facility] [address] [id number] [address] [place] [address], [place] [address] 21 May, 2012 [facility] [address] [id number] [address] [place] [id number] 18 May, 2012 [facility] [address] [id number] [address] [place] [address], [place] [address] 14 May, 2012 [facility] [address] [id number] [address] [place] [address], [place] [address] 10 May, 2012 [facility] [address] [id number] [address] [place] [address], [place] [address] 04 May, 2012 [facility] [address] [id number] [address] [place] [address], [place] [address] Apr, [facility] [address] [id number] [address] [place] [address], [place] [address] Apr, [facility] [address] [id number] [address] [place] [address], [place] [address] Mar, [facility] [address] [id number] [address] [place] [address], [place] [address] Mar, [facility] [address] [id number] [address] [place] [address], [place] [address] Mar, [facility] [address] [id number] [address] [place] [address], [place] [address] Feb, [facility] [address] [id number] [address] [place] [address], [place] [address] January, [facility] [address] [id number] [address] [place] [address], [place] [address] Nov, [facility] [address] [id number] [address] [place] [address], [place] [address] Nov, [facility] [address] [id number] [address] [place] [address], [place] [address] Nov, [facility] [address] [id number] [address] [place] [address], [place] [address] Nov, [facility] [address] [id number] [address] [place] [address], [place] [address] Nov, [facility] [address] [id number] [address] [place] [address], [place] [address] Oct, [facility] [address] [id number] [address] [place] [address], [place] [address] Oct, [facility] [address] [id number] [address] [place] [address], [place] [address] Oct, [facility] [address] [id number] [address] [place] [address], [place] [address] Oct, [facility] [address] [id number] [address] [place] [address], [place] [address] Oct, [facility] [address] [id number] [address] [place] [address], [place] [address] Sep, [facility] [address] [id number] [address] [place] [address], [place] [address] Sep, [facility] [address] [id number] [address] [place] [address], [place] [address] Sep,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
--- OUTSIDE RECORDS SUMMARY | 2020-01-17 19:10 | XMS REPORT ---
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 Active 04525321 Problem Mass of sinus R22.0 Active 138332 7 Problem History of atrial flutter Z86.79 Acti ve 680168872 Problem Portal vein thrombosis I81 Active 79440860 Problem Chronic pain syndrome G89.4 Active 30104993 Problem Major depressive disorder, recurrent, moderate F33 .1 Active 29764508 Problem Other chronic pain G89.29 Active 8 9513033 Problem Gastroesophageal reflux disease, esophagitis pre sence not specified K21.9 Active 820980951 Problem Sleep disorder G47.9 Active 09365 005 Problem Posttraumatic stress disorder F43.10 Active 09793545 Problem Acute non-recurrent frontal sinusitis J01.10 Active 38077818 Problem Severe major depression with psychotic features F3 2.3 Active 50657677 Problem Urinary hesitancy R39.11 Active 59 50369 Problem Elevated platelet count D47.3 Active 509508049 Problem Chronic hepatitis C without hepatic coma B18.2 Active 478079515 Problem Acquired hypothyroidism E03.9 Active 326782644 ALLERGIES No Information ENCOUNTERS Encounter Location Date Diagnosis [address] [address] Jun, [facility] [address] [id number] [place] [id number] Jun, [address] [address] Jun, [address] [address] Jun, Encounter for immunization Z23 [address] [address] Jun, Dental abscess K04.7 and Chest pain, uns pecified type R07.[address] [address] Jun, [address] [address] May, Sleep disorder G47.[address] [address] May, Chronic pain syndrome G89.[address] [address] 16 May, 2019 History of atrial flutter Z86.79 ; Chron ic pain syndrome G89.4 and Acquired hypothyroidism E03.[address] [address] May, [address] [address] May, Nausea R11.0 and Lightheadedness R42 [address] [address] May, Sleep disorder G47.9 [facility] [address] [place] [facility] [place] [address] Apr, Acute non-recurrent frontal sinusitis J0 1.10 and Tick bite, initial encounter W57.[facility]A [facility] [address] [address] Apr, Sleep disorder G47.[address] [address] Mar, Sleep disorder G47.9 [facility] [address] [place] [facility] [place] [address] Mar, [address] [address] Mar, [address] [address] Feb, History of atrial flutter Z86.79 and Mus jose cramping R25.[address] [address] Feb, [facility] [address] [address] Feb, [facility] [place] [address] [address] Feb, Cellulitis of left upper extremity L03.1 14 and Sleep disorder G47.9 [facility] [place]ADE [address] [address] Feb, Muscle cramping R25.2 [facility] [place]ADE [address] [place] [address] January, Chronic pain syndrome G89.4 [facility] J[facility] [address] [place] [address] January, [facility] [address] [place] [address] January, Chronic pain syndrome G89.4 ; Dizziness R42 ; Acquired hypothyroidism E03.9 ; Low back pain M54.5 ; Pulmonary embolism without acute cor pulmonale, unspecified chronicity, unspecified pulmonary embolism type I26.99 and Sleep disorder G47.9 [facility] JADIEL ANDRADE [address] [place] [address] January, [facility] [address] [place] [address] January, [facility] [address] [facility] [id number] [address] [place] [address] Sep, Chronic pain syndrome G89.4 [facility] [address] [id number] [address] [place] [address] Sep, [facility] [address] [id number] [address] [place] [address] Sep, [facility] [address] [facility] [id number] [address] [place] [address] Sep, [facility] [address] [facility] [id number] [address] [place] [address] Sep, [facility] [address] [facility] [id number] [address] [place] [address] Sep, [facility] [address] [id number] [address] [place] [address] Sep, [facility] [address] [id number] [address] [place] [address] Aug, [facility] [address] [facility] [id number] [address] [place] [address] Aug, Portal vein thrombosis I81 ; Chronic pain syndrome G89.4 ; Other acute pulmonary embolism without acute cor pulmonale I26.99 and Chronic hepatitis C without hepatic coma B18.2 [facility] [address] [id number] [address] [place] [address] Aug, [facility] [address] [facility] [id number] [address] [place] [address] Aug, [facility] [address] [place] [id number] [address] [place] [address] Jul, Major depressive disorder, r ecurrent, moderate F33.1 and Posttraumatic stress disorder F43.10 [facility] [address] [id number] [address] [place] [address] Jul, Gastroesophageal reflux dise ase, esophagitis presence not specified K21.9 [facility] [address] [facility] [id number] [address] [place] [address] Jun, [facility] [address] [facility] [id number] [address] [place] [address] Jun, [facility] [address] [place] [id number] [address] [place] [address] Jun, Posttraumatic stress disorde r F43.10 and Severe major depression with psychotic features F32.3 [facility] [address] [facility] [id number] [address] [place] [address] Apr, [facility] [address] [facility] [id number] [address] [place] [address] Apr, Mass of sinus R22.0 ; Athero sclerotic heart disease of [place] coronary artery with unspecified angina pectoris I25.119 and Elevated platelet count D47.3 [facility] [address] [id number] [address] [place] [address] Apr, Severe major depression with psychotic features F32.3 and Posttraumatic stress disorder F43.10 [place] [address] [id number] [address] [place] [address] January, [place] [address] [id number] [address] [place] [address] January, Posttraumatic stress disorde r F43.10 and Severe major depression with psychotic features F32.3 [place] [address] [id number] [address] [place] [address] Dec, 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 I25.119 and Elevated platelet count D47.3 [place] [address] [id number] [address] [place] [address] Dec, [place] [address] [id number] [address] [place] [address] Dec, Low energy R53.83 ; Atherosc lerotic heart disease of [place] coronary artery with unspecified angina pectoris I25.119 ; Gastroesophageal reflux disease, esophagitis presence not specified K21.9 and Urinary hesitancy R39.11 [place] [address] [id number] [address] [place] [address] Dec, Posttraumatic stress disorde r F43.10 and Severe major depression with psychotic features F32.3 [place] [address] [id number] [address] [place] [address] Oct, [place] [address] [facility] [id number] [address] [place] [address] Sep, Mass of sinus R22.0 [facility] [address] [facility] [id number] [address] [place] [address] Sep, Dysuria R30.0 ; Low back avi n M54.5 ; Other chronic pain G89.29 ; Poor nutrition E63.9 ; Gastroesophageal reflux disease, esophagitis presence not specified K21.9 and Mass of sinus R22.0 [facility] [address] [id number] [address] [place] [address] Sep, Posttraumatic stress disorde r F43.10 and Severe major depression with psychotic features F32.3 [facility] [address] [id number] [address] [place] [address] Sep, [facility] [address] [id number] [address] [place] [address] Aug, [facility] [address] [id number] [address] [place] [address] Aug, Encounter for immunization Z 23 [facility] [address] [id number] [address] [place] [address] Jul, Posttraumatic stress disorde r F43.10 ; Severe major depression with psychotic features F32.3 and Major depressive disorder, recurrent, moderate F33.1 [facility] [address] [id number] [address] [place] [address] Jun, [facility] [address] [id number] [address] [place] [address] Jun, [facility] [address] [id number] [address] [place] [address] May, [facility] [address] [id number] [address] [place] [address] Apr, [facility] [address] [id number] [address] [place] [address] Apr, Posttraumatic stress disorde r F43.10 and Severe major depression with psychotic features F32.3 [facility] [address] [id number] [address] [place] [address] Mar, [facility] [address] [id number] [address] [place] [address] Feb, [facility] [address] [id number] [address] [place] [address] January, [facility] [address] [facility] [id number] [address] [place] [address] January, Posttraumatic stress disorde r F43.10 and Severe major depression with psychotic features F32.3 [facility] [address] [id number] [address] [place] [address] Dec, [facility] [address] [id number] [address] [place] [address] Nov, [facility] [address] [facility] [id number] [address] [place] [address] Nov, [facility] [address] [facility] [id number] [address] [place] [address] Oct, Posttraumatic stress disorde r F43.10 and Severe major depression with psychotic features F32.3 [facility] [address] [facility] [id number] [address] [place] [address] Sep, Encounter for immunization Z 23 ; Posttraumatic stress disorder F43.10 and Severe major depression with psychotic features F32.3 [facility] [address] [facility] [id number] [address] [place] [address] Aug, [facility] [address] [facility] [id number] [address] [place] [address] Aug, [facility] [address] [facility] [id number] [address] [place] [address] Jul, Encounter for immunization Z 23 ; Posttraumatic stress disorder F43.10 and Severe major depression with psychotic features F32.3 [facility] [address] [facility] [id number] [address] [place] [address] Jun, [facility] [address] [facility] [id number] [address] [place] [address] Jun, Mass of sinus R22.0 ; Low ba ck pain M54.5 and Paroxysmal atrial fibrillation I48.0 [facility] [address] [id number] [address] [place] [address] May, [facility] [address] [id number] [address] [place] [address] Apr, Posttraumatic stress disorde r 309.81 and Major depressive disorder, recurrent episode, moderate 296.32 [facility] [address] [id number] [address] [place] [address] Apr, [facility] [address] [id number] [address] [place] [address] Mar, Major depressive disorder, r ecurrent episode, moderate 296.32 and Posttraumatic stress disorder 309.81 [facility] [address] [id number] [address] [place] [address] Feb, [facility] [address] [id number] [address] [place] [address] Feb, [facility] [address] [id number] [address] [place] [phone] January, [facility] [address] [id number] [address] [place] [address] January, [facility] [address] [id number] [address] [place] [address] January, [facility] [address] [id number] [address] [place] [phone] Dec, [facility] [address] [id number] [address] [place] [phone] Dec, [facility] [address] [id number] [address] [place] [address] Nov, [facility] [address] [id number] [address] [place] [phone] Nov, [facility] [address] [id number] [address] [place] [phone] Nov, [facility] [address] [id number] [address] [place] [address], [place] [address] 06 Nov, 2014 [facility] [address] [id number] [address] [place] [address], [place] [address] 04 Nov, 2014 [facility] [address] [id number] [address] [place] [address], [place] [address] 04 Nov, 2014 [facility] [address] [id number] [address] [place] [address], [place] [address] Nov, 2014 [facility] [address] [id number] [address] [place] [address], [place] [address] Nov, 2014 [facility] [address] [id number] [address] [place] [address], [place] [address] Oct, 2014 [facility] [address] [id number] [address] [place] [address], [place] [address] Oct, 2014 [facility] [address] [id number] [address] [place] [address], [place] [address] 16 Oct, 2014 [facility] [address] [id number] [address] [place] [address], [place] [address] Oct, 2014 [facility] [address] [id number] [address] [place] [address], [place] [address] Oct, 2014 [facility] [address] [id number] [address] [place] [address], [place] [address] 16 Oct, 2014 [facility] [address] [id number] [address] [place] [address], [place] [address] Oct, 2014 [facility] [address] [id number] [address] [place] [address], [place] [address] Oct, 2014 [facility] [address] [id number] [address] [place] [address], [place] [address] Oct, 2014 [facility] [address] [id number] [address] [place] [address], [place] [address] 06 Oct, 2014 [facility] [address] [id number] [address] [place] [address], [place] [address] Oct, 2014 [facility] [address] [id number] [address] [place] [address], [place] [address] Oct, 2014 [facility] [address] [id number] [address] [place] [address], [place] [address] Oct, 2014 [facility] [address] [id number] [address] [place] [address], [place] [address] Oct, 2014 [facility] [address] [id number] [address] [place] [address], [place] [address] Oct, 2014 [facility] [address] [id number] [address] [place] [address], [place] [address] Oct, [facility] [address] [id number] [address] [place] [address], [place] [address] Sep, [facility] [address] [id number] [address] [place] [address], [place] [address] Sep, [facility] [address] [id number] [address] [place] [address], [place] [address] Sep, [facility] [address] [id number] [address] [place] [address], [place] [address] Sep, [facility] [address] [id number] [address] [place] [address], [place] [address] Aug, [facility] [address] [id number] [address] [place] [address], [place] [address] Aug, [facility] [address] [id number] [address] [place] [address], [place] [address] Aug, [facility] [address] [id number] [address] [place] [address], [place] [address] Aug, [facility] [address] [id number] [address] [place] [address], [place] [address] Aug, [facility] [address] [id number] [address] [place] [address], [place] [address] Aug, [facility] [address] [id number] [address] [place] [address], [place] [address] Aug, [facility] [address] [id number] [address] [place] [address], [place] [address] Aug, [facility] [address] [id number] [address] [place] [address], [place] [address] Aug, [facility] [address] [id number] [address] [place] [address], [place] [address] Aug, [facility] [address] [id number] [address] [place] [address], [place] [address] Aug, [facility] [address] [id number] [address] [place] [address], [place] [address] Aug, [facility] [address] [id number] [address] [place] [address], [place] [address] Aug, [facility] [address] [id number] [address] [place] [address], [place] [address] Aug, [facility] [address] [id number] [address] [place] [address], [place] [address] Aug, [facility] [address] [id number] [address] [place] [address], [place] [address] Aug, [facility] [address] [id number] [address] [place] [address], [place] [address] Jul, [facility] [address] [id number] [address] [place] [address], [place] [address] Jul, [facility] [address] [id number] [address] [place] [address], [place] [address] Jul, [facility] [address] [id number] [address] [place] [address], [place] [address] Jul, [facility] [address] [id number] [address] [place] [address], [place] [address] Jul, [facility] [address] [id number] [address] [place] [address], [place] [address] Jul, [facility] [address] [id number] [address] [place] [address], [place] [address] 15 Jun, 2014 [facility] [address] [id number] [address] [place] [address], [place] [address] 15 Jun, 2014 [facility] [address] [id number] [address] [place] [address], [place] [address] Jun, [facility] [address] [id number] [address] [place] [address], [place] [address] Jun, [facility] [address] [id number] [address] [place] [address], [place] [address] Jun, [facility] [address] [id number] [address] [place] [address], [place] [address] Jun, [facility] [address] [id number] [address] [place] [address], [place] [address] Jun, [facility] [address] [id number] [address] [place] [address] Jun, [facility] [address] [id number] [address] [place] [address], [place] [address] Jun, [facility] [address] [id number] [address] [place] [address] Jun, [facility] [address] [id number] [address] [place] [id number] Jun, [facility] [address] [id number] [address] [place] [id number] Jun, [facility] [address] [id number] [address] [place] [address], [place] [address] Jun, [facility] [address] [id number] [address] [place] [id number] Jun, [facility] [address] [id number] [address] [place] [address], [place] [address] 16 May, 2014 [facility] [address] [id number] [facility] [place] [address] 16 May, 2013 [facility] [address] [id number] [address] [place] [address], [place] [address] May, [facility] [address] [id number] [address] [place] [address], [place] [address] May, [facility] [address] [id number] [address] [place] [address], [place] [address] Apr, [facility] [address] [id number] [address] [place] [address], [place] [address] Apr, [facility] [address] [id number] [address] [place] [address], [place] [address] Apr, [facility] [address] [id number] [address] [place] [address], [place] [address] Apr, [facility] [address] [id number] [address] [place] [address], [place] [address] Mar, [facility] [address] [id number] [address] [place] [address], [place] [address] Mar, [facility] [address] [id number] [address] [place] [address], [place] [address] Mar, [facility] [address] [id number] [address] [place] [address], [place] [address] Mar, [facility] [address] [id number] [address] [place] [address], [place] [address] Mar, [facility] [address] [id number] [address] [place] [address], [place] [address] Mar, [facility] [address] [id number] [address] [place] [address], [place] [address] Mar, [facility] [address] [id number] [address] [place] [address], [place] [address] Mar, [facility] [address] [id number] [address] [place] [address], [place] [address] Mar, [facility] [address] [id number] [address] [place] [address], [place] [address] Mar, [facility] [address] [id number] [address] [place] [address], [place] [address] Mar, [facility] [address] [id number] [address] [place] [address], [place] [address] Mar, [facility] [address] [id number] [address] [place] [address], [place] [address] Feb, [facility] [address] [id number] [address] [place] [address], [place] [address] Feb, [facility] [address] [id number] [address] [place] [address], [place] [address] Feb, [facility] [address] [id number] [address] [place] [address], [place] [address] Feb, [facility] [address] [id number] [address] [place] [address], [place] [address] Feb, [facility] [address] [id number] [address] [place] [address], [place] [address] Feb, [facility] [address] [id number] [address] [place] [address], [place] [address] January, [facility] [address] [id number] [address] [place] [address], [place] [address] January, [facility] [address] [id number] [address] [place] [address], [place] [address] January, [facility] [address] [id number] [address] [place] [address], [place] [address] January, [facility] [address] [id number] [address] [place] [address], [place] [address] January, [facility] [address] [id number] [address] [place] [address], [place] [address] January, [facility] [address] [id number] [address] [place] [address], [place] [address] Nov, [facility] [address] [id number] [address] [place] [address], [place] [address] Nov, [facility] [address] [id number] [address] [place] [address], [place] [address] Nov, [facility] [address] [id number] [address] [place] [address], [place] [address] Nov, [facility] [address] [id number] [address] [place] [address], [place] [address] Oct, [facility] [address] [id number] [address] [place] [address], [place] [address] Oct, [facility] [address] [id number] [address] [place] [address], [place] [address] Sep, [facility] [address] [id number] [address] [place] [address], [place] [address] Sep, [facility] [address] [id number] [address] [place] [address], [place] [address] Sep, [facility] [address] [id number] [address] [place] [address], [place] [address] Sep, [facility] [address] [id number] [address] [place] [address], [place] [address] Sep, [facility] [address] [id number] [address] [place] [address], [place] [address] Aug, [facility] [address] [id number] [address] [place] [address], [place] [address] Aug, [facility] [address] [id number] [address] [place] [address], [place] [address] Jul, [facility] [address] [id number] [address] [place] [address], [place] [address] Jul, [facility] [address] [id number] [address] [place] [address], [place] [address] Jul, [facility] [address] [id number] [facility] [place] [address] Jun, [facility] [address] [id number] [address] [place] [address], [place] [address] Jun, [facility] [address] [id number] [address] [place] [address], [place] [address] Jun, [facility] [address] [id number] [address] [place] [address], [place] [address] Jun, [facility] [address] [id number] [address] [place] [address], [place] [address] Apr, [facility] [address] [id number] [address] [place] [address], [place] [address] Mar, [facility] [address] [id number] [address] [place] [address], [place] [address] Mar, [facility] [address] [id number] [address] [place] [address], [place] [address] January, [facility] [address] [id number] [address] [place] [address], [place] [address] Dec, [facility] [address] [id number] [address] [place] [address], [place] [address] Dec, [facility] [address] [id number] [address] [place] [address], [place] [address] Nov, [facility] [address] [id number] [address] [place] [address], [place] [address] Nov, [facility] [address] [id number] [address] [place] [address], [place] [address] Nov, [facility] [address] [id number] [address] [place] [address], [place] [address] 2012 [facility] [address] [id number] [address] [place] [address], [place] [address] 07 Nov, 2012 [facility] [address] [id number] [address] [place] [address], [place] [address] Nov, [facility] [address] [id number] [address] [place] [address], [place] [address] Oct, [facility] [address] [id number] [address] [place] [address], [place] [address] 15 Sep, 2012 [facility] [address] [id number] [address] [place] [address], [place] [address] 18 Aug, 2012 [facility] [address] [id number] [address] [place] [address], [place] [address] 18 Aug, 2012 [facility] [address] [id number] [address] [place] [address], [place] [address] Aug, [facility] [address] [id number] [address] [place] [address], [place] [address] 18 Aug, 2012 [facility] [address] [id number] [address] [place] [address], [place] [address] 15 Jul, 2012 [facility] [address] [id number] [address] [place] [address], [place] [address] 15 Jul, 2012 [facility] [address] [id number] [address] [place] [address], [place] [address] Jun, [facility] [address] [id number] [address] [place] [address], [place] [address] 26 Jun, 2012 [facility] [address] [id number] [address] [place] [address], [place] [address] 18 Jun, 2012 [facility] [address] [id number] [address] [place] [address] 18 Jun, 2012 [facility] [address] [id number] [address] [place] [address], [place] [address] 21 May, 2012 [facility] [address] [id number] [address] [place] [address] 18 May, 2012 [facility] [address] [id number] [address] [place] [address], [place] [address] 14 May, 2012 [facility] [address] [id number] [address] [place] [address], [place] [address] 10 May, 2012 [facility] [address] [id number] [address] [place] [address], [place] [address] 04 May, 2012 [facility] [address] [id number] [address] [place] [address], [place] [address] Apr, [facility] [address] [id number] [address] [place] [address], [place] [address] Apr, [facility] [address] [id number] [address] [place] [address], [place] [address] Mar, [facility] [address] [id number] [address] [place] [address], [place] [address] Mar, [facility] [address] [id number] [address] [place] [address], [place] [address] Mar, [facility] [address] [id number] [address] [place] [address], [place] [address] Feb, [facility] [address] [id number] [address] [place] [address], [place] [address] January, [facility] [address] [id number] [address] [place] [address], [place] [address] Nov, [facility] [address] [id number] [address] [place] [address], [place] [address] Nov, [facility] [address] [id number] [address] [place] [address], [place] [address] Nov, [facility] [address] [id number] [address] [place] [address], [place] [address] Nov, [facility] [address] [id number] [address] [place] [address], [place] [address] Nov, [facility] [address] [id number] [address] [place] [address], [place] [address] Oct, [facility] [address] [id number] [address] [place] [address], [place] [address] Oct, [facility] [address] [id number] [address] [place] [address], [place] [address] Oct, [facility] [address] [id number] [address] [place] [address], [place] [address] Oct, [facility] [address] [id number] [address] [place] [address], [place] [address] Oct, [facility] [address] [id number] [address] [place] [address], [place] [address] Sep, [facility] [address] [id number] [address] [place] [address], [place] [address] Sep, [facility] [address] [id number] [address] [place] [address], [place] [address] Sep, [facility] [address] [id number]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
--- OUTSIDE RECORDS SUMMARY | 2020-01-17 19:11 | XMS REPORT ---
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 Active 30083501 Problem Mass of sinus R22.0 Active 279623 7 Problem History of atrial flutter Z86.79 Acti ve 264501952 Problem Portal vein thrombosis I81 Active 77550337 Problem Chronic pain syndrome G89.4 Active 50684930 Problem Major depressive disorder, recurrent, moderate F33 .1 Active 86388963 Problem Other chronic pain G89.29 Active 8 8183808 Problem Gastroesophageal reflux disease, esophagitis pre sence not specified K21.9 Active 761143925 Problem Sleep disorder G47.9 Active 42010 005 Problem Posttraumatic stress disorder F43.10 Active 85946376 Problem Acute non-recurrent frontal sinusitis J01.10 Active 91125409 Problem Severe major depression with psychotic features F3 2.3 Active 08669135 Problem Urinary hesitancy R39.11 Active 59 29929 Problem Elevated platelet count D47.3 Active 280080445 Problem Chronic hepatitis C without hepatic coma B18.2 Active 493328542 Problem Acquired hypothyroidism E03.9 Active 857967019 ALLERGIES No Information ENCOUNTERS Encounter Location Date Diagnosis [address] [address] Jun, [address] [address] 24 May, 2019 Chronic pain syndrome G89.[address] [address] 16 May, 2019 History of atrial flutter Z86.79 ; Chron ic pain syndrome G89.4 and Acquired hypothyroidism E03.9 [facility] [address] [place] [address] May, [facility] [address] [address] May, Nausea R11.0 and Lightheadedness R42 [facility] [address] [address] May, Sleep disorder G47.9 [facility] [address] [place] [address] Apr, Acute non-recurrent frontal sinusitis J0 1.10 and Tick bite, initial encounter W57.XXXA [address] [place] [address] Apr, Sleep disorder G47.[address] [place] [address] Mar, Sleep disorder G47.9 [facility] [address] [place] [address] Mar, [address] [place] [address] Mar, [address] [place] [address] Feb, History of atrial flutter Z86.79 and Mus jose cramping R25.[address] [address] Feb, [address] [address] Feb, [address] [address] Feb, Cellulitis of left upper extremity L03.1 14 and Sleep disorder G47.[address] [place] [address] Feb, Muscle cramping R25.2 [facility] [address] [address] January, Chronic pain syndrome G89.[address] [place] [address] January, [facility] [address] [facility] [place] [address] January, Chronic pain syndrome G89.4 ; Dizziness R42 ; Acquired hypothyroidism E03.9 ; Low back pain M54.5 ; Pulmonary embolism without acute cor pulmonale, unspecified chronicity, unspecified pulmonary embolism type I26.99 and Sleep disorder G47.[address] [place] [address] January, [address] [address] January, [facility] [address] [id number] [address] [place] [address] Sep, Chronic pain syndrome G89.4 [facility] [address] [id number] [address] [place] [address] Sep, [facility] [address] [id number] [address] [place] [address] Sep, [facility] [address] [id number] [address] [place] [address] Sep, [facility] [address] [id number] [address] [place] [address] Sep, [facility] [address] [id number] [address] [place] [address] Sep, [facility] [address] [id number] [address] [place] [address] Sep, [facility] [address] [id number] [address] [place] [address] Aug, [facility] [address] [id number] [address] [place] [address] Aug, Portal vein thrombosis I81 ; Chronic pain syndrome G89.4 ; Other acute pulmonary embolism without acute cor pulmonale I26.99 and Chronic hepatitis C without hepatic coma B18.2 [facility] [address] [id number] [address] [place] [address] Aug, [facility] [address] [facility] [id number] [address] [place] [address] Aug, [facility] [address] [facility] [id number] [address] [place] [address] Jul, Major depressive disorder, r ecurrent, moderate F33.1 and Posttraumatic stress disorder F43.10 [facility] [address] [facility] [id number] [address] [place] [address] Jul, Gastroesophageal reflux dise ase, esophagitis presence not specified K21.9 [facility] [address] [facility] [id number] [address] [place] [address] Jun, [place] [address] [facility] [id number] [address] [place] [address] Jun, [facility] [address] [place] [id number] [address] [place] [address] Jun, Posttraumatic stress disorde r F43.10 and Severe major depression with psychotic features F32.3 [facility] [address] [facility] [id number] [address] [place] [address] Apr, [place] [address] [facility] [id number] [address] [place] [address] Apr, Mass of sinus R22.0 ; Athero sclerotic heart disease of [place] coronary artery with unspecified angina pectoris I25.119 and Elevated platelet count D47.3 [facility] [address] [facility] [id number] [address] [place] [address] Apr, Severe major depression with psychotic features F32.3 and Posttraumatic stress disorder F43.10 [place] [id number] [facility] [id number] [address] [place] [address] January, [facility] [address] [facility] [id number] [address] [place] [address] January, Posttraumatic stress disorde r F43.10 and Severe major depression with psychotic features F32.3 [place] [address] [facility] [id number] [address] [place] [address] Dec, 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.119 and Elevated platelet count D47.3 [place] [address] [place] [id number] [address] [place] [address] Dec, [place] [address] [place] [id number] [address] [place] [address] Dec, Low energy R53.83 ; Atherosc lerotic heart disease of [place] coronary artery with unspecified angina pectoris I25.119 ; Gastroesophageal reflux disease, esophagitis presence not specified K21.9 and Urinary hesitancy R39.11 [place] [address] [place] [id number] [place] [address] Dec, Posttraumatic stress disorde r F43.10 and Severe major depression with psychotic features F32.3 [place] [address] [address] Oct, [place] [address] [place] [id number] [address] [place] [address] Sep, Mass of sinus R22.0 [place] [address] [address] Sep, Dysuria R30.0 ; Low back avi n M54.5 ; Other chronic pain G89.29 ; Poor nutrition E63.9 ; Gastroesophageal reflux disease, esophagitis presence not specified K21.9 and Mass of sinus R22.0 [place] [address] [place] [id number] [address] [place] [address] Sep, Posttraumatic stress disorde r F43.10 and Severe major depression with psychotic features F32.3 [place] [address] [place] [id number] [address] [place] [address] Sep, [place] [address] [place] [id number] [address] [place] [address] Aug, [place] [address] [place] [address] [place] [address] Aug, Encounter for immunization Z 23 [facility] [address] [id number] [address] [place] [address] Jul, Posttraumatic stress disorde r F43.10 ; Severe major depression with psychotic features F32.3 and Major depressive disorder, recurrent, moderate F33.1 [facility] [address] [id number] [address] [place] [address] Jun, [facility] [address] [id number] [address] [place] [address] Jun, [facility] [address] [id number] [address] [place] [address] May, [facility] [address] [id number] [address] [place] [address] Apr, [facility] [address] [id number] [address] [place] [address] Apr, Posttraumatic stress disorde r F43.10 and Severe major depression with psychotic features F32.3 [facility] [address] [id number] [address] [place] [address] Mar, [facility] [address] [id number] [address] [place] [address] Feb, [facility] [address] [id number] [address] [place] [address] January, [facility] [address] [id number] [address] [place] [address] January, Posttraumatic stress disorde r F43.10 and Severe major depression with psychotic features F32.3 [facility] [address] [id number] [address] [place] [address] Dec, [facility] [address] [id number] [address] [place] [address] Nov, [facility] [address] [place] [id number] [address] [place] [address] Nov, [facility] [address] [place] [id number] [address] [place] [address] Oct, Posttraumatic stress disorde r F43.10 and Severe major depression with psychotic features F32.3 [facility] [address] [place] [id number] [place] [address] Sep, Encounter for immunization Z 23 ; Posttraumatic stress disorder F43.10 and Severe major depression with psychotic features F32.3 [facility] [address] [place] [id number] [place] [address] Aug, [facility] [address] [address] Aug, [place] [address] [address] Jul, Encounter for immunization Z 23 ; Posttraumatic stress disorder F43.10 and Severe major depression with psychotic features F32.3 [place] [id number] [address] Jun, [place] [address] [address] Jun, Mass of sinus R22.0 ; Low ba ck pain M54.5 and Paroxysmal atrial fibrillation I48.0 [place] [address] [address] May, [facility] [address] [address] Apr, Posttraumatic stress disorde r 309.81 and Major depressive disorder, recurrent episode, moderate 296.32 [place] [address] [place] [id number] [place] [address] Apr, [facility] [address] [place] [id number] [place] [address] Mar, Major depressive disorder, r ecurrent episode, moderate 296.32 and Posttraumatic stress disorder 309.81 [facility] [address] [id number] [address] [place] [address], [place] [address] Feb, [facility] [address] [id number] [address] [place] [address], [place] [address] Feb, [facility] [address] [id number] [address] [place] [address], [place] [address] January, [facility] [address] [id number] [address] [place] [address], [place] [address] January, [facility] [address] [id number] [address] [place] [address], [place] [address] January, [facility] [address] [id number] [address] [place] [address], [place] [address] Dec, [facility] [address] [id number] [address] [place] [address], [place] [address] Dec, [facility] [address] [id number] [address] [place] [address] Nov, [facility] [address] [id number] [address] [place] [address], [place] [address] Nov, [facility] [address] [id number] [address] [place] [address] Nov, [facility] [address] [id number] [address] [place] [address] Nov, [facility] [address] [id number] [address] [place] [address] Nov, [facility] [address] [id number] [address] [place] [address] Nov, [facility] [address] [id number] [address] [place] [address] Nov, [facility] [address] [id number] [address] [place] [address] Nov, [facility] [address] [id number] [address] [place] [address] [place] [address] Oct, 2014 [facility] [address] [id number] [address] [place] [address], [place] [address] Oct, 2014 [facility] [address] [id number] [address] [place] [address], [place] [address] 16 Oct, 2014 [facility] [address] [id number] [address] [place] [address] 16 Oct, 2014 [facility] [address] [id number] [address] [place] [address], [place] [address] 16 Oct, 2014 [facility] [address] [id number] [address] [place] [address], [place] [address] Oct, 2014 [facility] [address] [id number] [address] [place] [address] 06 Oct, 2014 [facility] [address] [id number] [address] [place] [address] Oct, 2014 [facility] [address] [id number] [address] [place] [address] Oct, 2014 [facility] [address] [id number] [address] [place] [address] Oct, 2014 [facility] [address] [id number] [address] [place] [address] 05 Oct, 2014 [facility] [address] [id number] [address] [place] [address] Oct, 2014 [facility] [address] [id number] [address] [place] [address] Oct, 2014 [facility] [address] [id number] [address] [place] [address] Oct, 2014 [facility] [address] [id number] [address] [place] [address] Oct, 2014 [facility] [address] [id number] [address] [place] [address] Oct, [facility] [address] [id number] [address] [place] [address], [place] [address] Sep, [facility] [address] [id number] [address] [place] [address], [place] [address] Sep, [facility] [address] [id number] [address] [place] [address], [place] [address] Sep, [facility] [address] [id number] [address] [place] [address], [place] [address] Sep, [facility] [address] [id number] [address] [place] [address], [place] [address] Aug, [facility] [address] [id number] [address] [place] [address], [place] [address] Aug, [facility] [address] [id number] [address] [place] [address], [place] [address] Aug, [facility] [address] [id number] [address] [place] [address], [place] [address] Aug, [facility] [address] [id number] [address] [place] [address], [place] [address] Aug, [facility] [address] [id number] [address] [place] [address], [place] [address] Aug, [facility] [address] [id number] [address] [place] [address], [place] [address] Aug, [facility] [address] [id number] [address] [place] [address], [place] [address] Aug, [facility] [address] [id number] [address] [place] [address], [place] [address] Aug, [facility] [address] [id number] [address] [place] [address], [place] [address] Aug, [facility] [address] [id number] [address] [place] [address], [place] [address] Aug, [facility] [address] [id number] [address] [place] [address], [place] [address] Aug, [facility] [address] [id number] [address] [place] [address], [place] [address] Aug, [facility] [address] [id number] [address] [place] [address], [place] [address] Aug, [facility] [address] [id number] [address] [place] [address], [place] [address] Aug, [facility] [address] [id number] [address] [place] [address], [place] [address] Aug, [facility] [address] [id number] [address] [place] [address], [place] [address] Jul, [facility] [address] [id number] [address] [place] [address], [place] [address] Jul, [facility] [address] [id number] [address] [place] [address], [place] [address] Jul, [facility] [address] [id number] [address] [place] [address], [place] [address] Jul, [facility] [address] [id number] [address] [place] [address], [place] [address] Jul, [facility] [address] [id number] [address] [place] [address], [place] [address] Jul, [facility] [address] [id number] [address] [place] [address], [place] [address] Jun, [facility] [address] [id number] [address] [place] [address], [place] [address] Jun, [facility] [address] [id number] [address] [place] [address], [place] [address] Jun, [facility] [address] [id number] [address] [place] [address], [place] [address] Jun, [facility] [address] [id number] [address] [place] [address], [place] [address] Jun, [facility] [address] [id number] [address] [place] [address], [place] [address] Jun, 2013 [facility] [address] [id number] [address] [place] [address], [place] [address] Jun, 2013 [facility] [address] [id number] [address] [place] [address], [place] [address] Jun, 2013 [facility] [address] [id number] [address] [place] [address], [place] [address] Jun, 2013 [facility] [address] [id number] [address] [place] [address], [place] [address] Jun, [facility] [address] [id number] [address] [place] [address], [place] [address] Jun, [facility] [address] [id number] [address] [place] [address], [place] [address] Jun, [facility] [address] [id number] [address] [place] [address], [place] [address] Jun, [facility] [address] [id number] [address] [place] [address], [place] [address] Jun, [facility] [address] [id number] [address] [place] [address], [place] [address] 16 May, 2013 [facility] [address] [id number] [address] [place] [address], [place] [address] 16 May, 2013 [facility] [address] [id number] [address] [place] [address], [place] [address] 16 May, 2013 [facility] [address] [id number] [address] [place] [address], [place] [address] 16 May, 2014 [facility] [address] [id number] [address] [place] [address], [place] [address] Apr, [facility] [address] [id number] [address] [place] [address], [place] [address] Apr, [facility] [address] [id number] [address] [place] [address] [place] [address] Apr, [facility] [address] [id number] [address] [place] [address], [place] [address] Apr, [facility] [address] [id number] [address] [place] [address], [place] [address] Mar, [facility] [address] [id number] [address] [place] [address], [place] [address] Mar, [facility] [address] [id number] [address] [place] [address], [place] [address] Mar, [facility] [address] [id number] [address] [place] [address], [place] [address] Mar, [facility] [address] [id number] [address] [place] [address], [place] [address] Mar, [facility] [address] [id number] [address] [place] [address], [place] [address] Mar, [facility] [address] [id number] [address] [place] [address], [place] [address] Mar, [facility] [address] [id number] [address] [place] [address], [place] [address] Mar, [facility] [address] [id number] [address] [place] [address], [place] [id number] Mar, [facility] [address] [id number] [address] [place] [address], [place] [address] Mar, [facility] [address] [id number] [address] [place] [address], [place] [address] Mar, [facility] [address] [id number] [address] [place] [address], [place] [id number] Mar, [facility] [address] [id number] [address] [place] [address], [place] [address] Feb, [facility] [address] [id number] [address] [place] [address], [place] [address] Feb, [facility] [address] [id number] [facility] [place] [address] Feb, [facility] [address] [id number] [facility] [place] [address] Feb, [facility] [address] [id number] [address] [place] [address], [place] [address] Feb, [facility] [address] [id number] [address] [place] [address], [place] [address] Feb, [facility] [address] [id number] [address] [place] [address], [place] [address] January, [facility] [address] [id number] [address] [place] [address], [place] [address] January, [facility] [address] [id number] [address] [place] [address], [place] [address] January, [facility] [address] [id number] [address] [place] [address], [place] [address] January, [facility] [address] [id number] [address] [place] [address], [place] [address] January, [facility] [address] [id number] [address] [place] [address], [place] [address] January, [facility] [address] [id number] [address] [place] [address], [place] [address] Nov, [facility] [address] [id number] [address] [place] [address], [place] [address] Nov, [facility] [address] [id number] [address] [place] [address], [place] [address] Nov, [facility] [address] [id number] [address] [place] [address], [place] [address] Nov, [facility] [address] [id number] [address] [place] [address], [place] [address] Oct, [facility] [address] [id number] [address] [place] [address], [place] [address] Oct, [facility] [address] [id number] [address] [place] [address], [place] [address] Sep, [facility] [address] [id number] [address] [place] [address], [place] [id number] Sep, [facility] [address] [id number] [address] [place] [address], [place] [address] Sep, [facility] [address] [id number] [address] [place] [address], [place] [address] Sep, [facility] [address] [id number] [address] [place] [address], [place] [address] Sep, [facility] [address] [id number] [address] [place] [address], [place] [address] Aug, [facility] [address] [id number] [address] [place] [address], [place] [address] Aug, [facility] [address] [id number] [address] [place] [address], [place] [address] Jul, [facility] [address] [id number] [address] [place] [address], [place] [address] Jul, [facility] [address] [id number] [address] [place] [address], [place] [address] Jul, [facility] [address] [id number] [address] [place] [address], [place] [address] Jun, [facility] [address] [id number] [address] [place] [address] Jun, [facility] [address] [id number] [address] [place] [address], [place] [address] Jun, [facility] [address] [id number] [address] [place] [address], [place] [address] Jun, [facility] [address] [id number] [address] [place] [address], [place] [address] Apr, [facility] [address] [id number] [address] [place] [address], [place] [address] Mar, [facility] [address] [id number] [address] [place] [address], [place] [address] Mar, [facility] [address] [id number] [address] [place] [address], [place] [address] January, [facility] [address] [id number] [address] [place] [address], [place] [address] Dec, [facility] [address] [id number] [address] [place] [address], [place] [address] Dec, [facility] [address] [id number] [address] [place] [address], [place] [address] Nov, [facility] [address] [id number] [address] [place] [address], [place] [address] Nov, [facility] [address] [id number] [address] [place] [address], [place] [address] Nov, [facility] [address] [id number] [address] [place] [address], [place] [address] 2012 [facility] [address] [id number] [address] [place] [address], [place] [address] Nov, [facility] [address] [id number] [address] [place] [address], [place] [address] 05 Nov, 2012 [facility] [address] [id number] [address] [place] [address], [place] [address] Oct, [facility] [address] [id number] [address] [place] [address], [place] [address] Sep, [facility] [address] [id number] [address] [place] [address], [place] [address] Aug, [facility] [address] [id number] [address] [place] [address], [place] [address] Aug, [facility] [address] [id number] [address] [place] [address], [place] [address] Aug, [facility] [address] [id number] [address] [place] [address], [place] [address] 18 Aug, 2012 [facility] [address] [id number] [address] [place] [address], [place] [address] Jul, [facility] [address] [id number] [address] [place] [address], [place] [address] Jul, [facility] [address] [id number] [address] [place] [address], [place] [address] Jun, [facility] [address] [id number] [address] [place] [address], [place] [address] Jun, [facility] [address] [id number] [address] [place] [address], [place] [address] Jun, [facility] [address] [id number] [address] [place] [address], [place] [address] Jun, [facility] [address] [id number] [address] [place] [address], [place] [address] 21 May, 2012 [facility] [address] [id number] [address] [place] [address], [place] [address] 18 May, 2012 [facility] [address] [id number] [address] [place] [address] 14 May, 2012 [facility] [address] [id number] [address] [place] [id number] 10 May, 2012 [facility] [address] [id number] [address] [place] [id number] 04 May, 2012 [facility] [address] [id number] [address] [place] [address], [place] [address] 30 Apr, 2012 [facility] [address] [id number] [address] [place] [id number] 20 Apr, 2012 [facility] [address] [id number] [address] [place] [id number] 31 Mar, 2012 [facility] [address] [id number] [address] [place] [address] Mar, [facility] [address] [id number] [address] [place] [address], [place] [address] Mar, [facility] [address] [id number] [address] [place] [address], [place] [address] Feb, [facility] [address] [id number] [address] [place] [address], [place] [address] January, [facility] [address] [id number] [address] [place] [address], [place] [address] Nov, [facility] [address] [id number] [address] [place] [address], [place] [address] Nov, [facility] [address] [id number] [address] [place] [address], [place] [address] Nov, [facility] [address] [id number] [address] [place] [address], [place] [address] Nov, [facility] [address] [id number] [address] [place] [address], [place] [address] Nov, [facility] [address] [id number] [address] [place] [address], [place] [address] Oct, [facility] [address] [id number] [address] [place] [address], [place] [address] Oct, [facility] [address] [id number] [address] [place] [address], [place] [address] Oct, [facility] [address] [id number] [address] [place] [address], [place] [address] Oct, [facility] [address] [id number] [address] [place] [address], [place] [address] Oct, [facility] [address] [id number] [address] [place] [address], [place] [address] Sep, [facility] [address] [id number] [address] [place] [address], [place] [address] Sep, [facility] [address] [id number] [address] [place] [address], [place] [address] Sep, [facility] [address] [id number] [address] [place] [address], [place] [address] Sep, [facility] [address] [id number] [address] [place] [address], [place] [address] Sep, [facility] [address] [id number] [address] [place] [address], [place] [address] Sep, [facility] [address] [id number] [address] [place] [address], [place] [address] Sep, [facility] [address] [id number] [address] [place] [address], [place] [address] Aug, [facility] [address] [id number] [address] [place] [address], [place] [address] Aug, [facility] [address] [id number] [address] [place] [address], [place] [address] Aug, [facility] [address] [id number] [address] [place] [address], [place] [address] Aug, [facility] [address] [id number] [address] [place] [address], [place] [address] Aug, [facility] [address] [id number] [address] [place] [address], [place] [address] Aug, [facility] [address] [id number] [address] [place] [address], [place] [address] Jun, [facility]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
--- OUTSIDE RECORDS SUMMARY | 2020-01-17 19:32 | XMS REPORT | Continuity of Care Document ---
Demographics Preferred Language Unknown Marital Status Unknown Latter Day Affiliation Unknown Race Unknown Ethnic Group Unknown Author Organization Unknown Address Unknown Phone Unavailable Allergies Active Description Code Type Severity Reaction Onset Reported/Identified Relationship to Patient Clinical Status Yes NO KNOWN DRUG ALLERGIES UNKNOWN NO KNOWN DRUG ALLERG Yes NO KNOWN DRUG ALLERGIES UNKNOWN UNKNOWN Yes Darvocet-N 100 Drug Allergy N/A N/A 10/10/2009 Yes Darvocet-N 100 Drug Allergy 10/10/2009 Yes prednisone 10 mg tablet Drug Allergy N/A N/A 07/23/2014 Yes tramadol 50 mg tablet Drug Allergy N/A N/A 11/20/2014 Yes amphetamine Drug Allergy N/A N/A 11/20/2014 Yes Benzodiazepines Drug Allergy N/A N/A 11/20/2014 Yes hydrocodone Drug Allergy N/A N/A 11/20/2014 Yes No Known Drug Allergies [id number] Drug Allergy Unknown N/A 11/24/2018 Yes No Known Drug Allergies [id number] Drug Allergy Unknown N/A 03/01/2019 Medications Medication Packaging Start Date St op Date Route Dosage Sig NORMAL SALINE 1000CC IV BAG INJ 0.9 % (NS 1000CC IV BAG) ml 06/28/2017 07/13/2017 CONTINUOUSEVERY 0 Hour HYDROXYZINE TAB 25 MG (ATARAX) MG 06/29/2017 06/29/2017 ONCE&0040 NORMAL SALINE 1000CC IV BAG INJ 0.9 % (NS 1000CC IV BAG) ml 08/05/2018 08/05/2018 ONCE&1425 ALPRAZOLAM TAB 0.25 MG (XANAX) MG 08/05/2018 08/05/2018 PRN ONCE Metoprolol IV soln 5mg/5cc vial (Lopressor ) MG 08/05/2018 08/05/2018 ONCE&1443 MORPHINE SYRINGE INJ 2 MG/CC MG 08/05/2018 08/05/2018 PRN ONCE POTASSIUM CHLORIDE TAB 20 MEQ (K-DUR) MEQ 08/05/2018 08/05/2018 ONCE&1549 OXYCODONE 5MG/APAP 325MG TAB(PERCOCET-5) TAB 08/05/2018 08/12/2018 PRN QID CARVEDILOL TAB 6.25 MG (COREG) MG 08/05/2018 08/11/2018 QPM&2000 ALPRAZOLAM TAB 1 MG (XANAX) MG 08/05/2018 08/15/2018 PRN TID APIXABAN TAB 5 MG (ELIQUIS) MG 08/05/2018 08/12/2018 BID&0800,2000 ACETAMINOPHEN ORAL TABLET 325mg(Tylenol) MG 08/05/2018 08/05/2018 ONCE&2013 LEVALBUTEROL CONCENTRATE ESTRELLA N 1.25 MG/0.5CC (XOPENEX CONCENTRATE) MG 08/05/2018 08/15/2018 QID&0600,1100,16 00,2100 ALPRAZOLAM TAB 0.5 MG (XANAX) MG 08/05/2018 08/15/2018 PRN Q8H CARVEDILOL TAB 12.5 MG (COREG) MG 08/06/2018 08/12/2018 QAM&0800 LEVOTHYROXINE TAB 25MCG (SYNTHROID) MCG 08/06/2018 08/12/2018 Daily&0900 KETOROLAC VIAL INJ 30 MG/CC (TORADOL VIAL) MG 02/03/2019 02/03/2019 ONCE&1730 DIAZEPAM TAB 2 MG (VALIUM) M G 02/03/2019 02/03/2019 ONCE&1730 MECLIZINE TAB 25 MG (ANTIVERT) MG 02/03/2019 02/03/2019 ONCE&1730 NORMAL SALINE 500CC IV BAG I NJ 0.9 % (NS 500CC IV BAG) ml 02/03/2019 02/03/2019 ONCE&1730 ALPRAZOLAM TAB 0.25 MG (XANAX) MG 03/20/2019 03/20/2019 PRN ONCE Normal SALINE 0.9 % (NS 100cc) (plain bag) ml 03/20/2019 03/22/2019 CONTINUOUSEVERY 0 Hour DILTIAZEM BOLUS VIAL INJ 25 MG/5CC (CARDIZEM BOLUS VIAL) MG 03/20/2019 03/20/2019 ONCE&1808 DILTIAZEM BOLUS VIAL INJ 25 MG/5CC (CARDIZEM BOLUS VIAL) MG 03/20/2019 03/20/2019 ONCE&1817 Amiodarone in dextrose IV so lution (Nexterone 360mg) MG 03/20/2019 03/20/2019 ONCE&1852 Amiodarone in dextrose IV so lution (Nexterone 150mg) MG 03/20/2019 03/20/2019 ONCE&1852 DIGOXIN INJ 500mcg/2cc amp (Lanoxin) MCG 03/20/2019 03/20/2019 ONCE&1852 NORMAL SALINE 1000CC IV BAG INJ 0.9 % (NS 1000CC IV BAG) ml 03/20/2019 03/22/2019 CONTINUOUSEVERY 0 Hour ONDANSETRON VIAL INJ 4 MG/2CC (ZOFRAN 2CC VIAL) MG 05/19/2019 05/19/2019 PRN ONCE NITROSTAT TAB 0.4 MG (NITROGLYCERINE) MG 05/19/2019 05/19/2019 PRN ONCE KETOROLAC VIAL INJ 15 MG/CC (TORADOL VIAL) MG 05/19/2019 05/19/2019 ONCE&0425 NORMAL SALINE 1000CC IV BAG INJ 0.9 % (NS 1000CC IV BAG) ml 05/19/2019 05/19/2019 ONCE&0425 NORMAL SALINE 500CC IV BAG I NJ 0.9 % (NS 500CC IV BAG) ml 05/19/2019 05/19/2019 ONCE&0426 PROCHLORPERAZINE VIAL INJ 10 MG/2CC (COMPAZINE VIAL) MG 05/19/2019 05/19/2019 PRN ONCE Doxycycline hyclate 100mg capsule (Vibramy josh) MG 05/19/2019 05/19/2019 ONCE&0456 NORMAL SALINE 500CC IV BAG I NJ 0.9 % (NS 500CC IV BAG) ml 05/19/2019 05/19/2019 ONCE&0509 BENZONATATE CAP 100 MG (TESSALON) MG 05/27/2019 05/27/2019 ONCE&1834 OXYCODONE 5MG/APAP 325MG TAB(PERCOCET-5) TAB 05/27/2019 05/27/2019 ONCE&1834 GUAIFENESIN - DM LIQ (ROBITUSSIN DM) MLS 05/27/2019 05/27/2019 ONCE&1834 PHENAZOPYRIDINE TAB 100 MG (PYRIDIUM) MG 05/27/2019 05/27/2019 ONCE&2020 AMOX-CLAV 875/125 TAB 875 MG-125MG (AUGMEN TIN) TAB 05/27/2019 05/27/2019 ONCE&2020 Problems Date Dx Coded Attending Type Code Diagnosis Diagnosed By 04/26/2008 784.0 headache 04/26/2008 RYNE ROGERS, BRENNEN ZAMORANO 784.0 headache 04/26/2008 784.0 headache 04/26/2008 MICHELE ASSISTANT WOMEN'S SOCCER COACH, BRENNEN ZAMORANO 784.0 headache 04/26/2008 RYNE ROGERS, BRENNEN ZAMORANO 784.0 headache 04/26/2008 RYNE MONTES DE OCAN, BRENNEN ZAMORANO 784.0 headache 04/26/2008 VIRGEN DO, SHERRON K 784.0 headache 04/26/2008 MADVanessa ASSISTANT WOMEN'S SOCCER COACH, RYAN L 784 .0 headache 04/26/2008 VIRGEN DO, SHERRON K 784.0 [...] DO, SHERRON K 784.0 headache 04/26/2008 BEVERLEY SHAREPOINT SPECIALIST, OLIVIA M 784.0 headache 04/26/2008 VIRGEN DO, SHERRON K 784.0 headache 04/26/2008 VIRGEN DO, SHERRON K 784.0 headache 04/26/2008 BEVERLEY SHAREPOINT SPECIALIST, OLIVIA M 784.0 headache 04/26/2008 VIRGEN DO, [...] K 266.2 B12 DEF W/O ANEMIA 06/09/2008 RYAN HALL APRN 266 .2 B12 DEF W/O ANEMIA 06/09/2008 VIRGEN DO, [...] 266.2 B12 DEF W/O ANEMIA 06/09/2008 BEVERLEY SHAREPOINT SPECIALIST, OLIVIA M 266.2 B12 DEF W/O ANEMIA 06/09/2008 VIRGEN DO, SHERRON K 266.2 B12 DEF W/O ANEMIA 06/09/2008 VIRGEN DO, SHERRON K 266.2 B12 DEF W/O ANEMIA 06/09/2008 BEVERLEY SHAREPOINT SPECIALIST, OLIVIA M 266.2 B12 DEF W/O ANEMIA 06/09/2008 VIRGEN DO, SHERRON K 266.2 B12 DEF W/O ANEMIA 07/04/2008 285.9 ANEMIA 07/04/2008 536.8 Dysp epsia 07/04/2008 RYNE ROGERS BRENNEN JAUN 285.9 ANEMIA 07/04/2008 MICHELE SUE BRENNEN JAUN 536.8 Dyspepsia 07/04/2008 285.9 ANEMIA 07/04/2008 536.8 Dysp epsia 07/04/2008 MICHELE SUE BRENNEN JAUN 285.9 ANEMIA 07/04/2008 MICHELE SUE BRENNEN JAUN 536.8 Dyspepsia 07/04/2008 MICHELE SUE BRENNEN JAUN 285.9 ANEMIA 07/04/2008 MICHELE ASSISTANT WOMEN'S SOCCER COACH, BRENNEN JAUN 536.8 Dyspepsia 07/04/2008 MICHELE ASSISTANT WOMEN'S SOCCER COACH, BRENNEN JAUN 285.9 ANEMIA 07/04/2008 MICHELE ASSISTANT WOMEN'S SOCCER COACH, BRENNEN ZAMORANO 536.8 Dyspepsia 07/04/2008 VIRGEN DO, SHERRON K 285.9 ANEMIA 07/04/2008 VIRGEN DO, SHERRON K 536.8 Dyspepsia 07/04/2008 MADL ASSISTANT WOMEN'S SOCCER COACH, RYAN L 285 .9 ANEMIA 07/04/2008 MADL ASSISTANT WOMEN'S SOCCER COACH, RYAN L 536 .8 Dyspepsia 07/04/2008 VIRGEN DO, SHERRON K 285.9 [...] VIRGEN DO, SHERRON K 536.8 Dyspepsia 07/04/2008 OLIVIA AUGUSTINE M 285.9 ANEMIA 07/04/2008 OLIVIA AUGUSTINE M 536.8 Dyspepsia 07/04/2008 VIRGEN DO, SHERRON K 285.9 ANEMIA 07/04/2008 VIRGEN DO, SHERRON K 536.8 Dyspepsia 07/04/2008 VIRGEN DO, SHERRON K 285.9 ANEMIA 07/04/2008 VIRGNE DO, SHERRON K 536.8 Dyspepsia 07/04/2008 BEVERLEY DIAZ, OLIVIA M 285.9 ANEMIA 07/04/2008 BEVERLEY DIAZ, OLIVIA M 536.8 Dyspepsia 07/04/2008 VIRGEN DO, SHERRON K 285.9 ANEMIA 07/04/2008 VIRGEN DO, SHERRON K 536.8 Dyspepsia 09/04/2008 528.9 Mout h Pain 09/04/2008 MICHELE ASSISTANT WOMEN'S SOCCER COACH, BRENNEN JAUN 528.9 Mouth Pain 09/04/2008 528.9 Mout h Pain 09/04/2008 MICHELE ASSISTANT WOMEN'S SOCCER COACH, BRENNEN JAUN 528.9 Mouth Pain 09/04/2008 MICHELE ASSISTANT WOMEN'S SOCCER COACH, BRENNEN JAUN 528.9 Mouth Pain 09/04/2008 MICHELE ASSISTANT WOMEN'S SOCCER COACH, BRENNEN JAUN 528.9 Mouth Pain 09/04/2008 VIRGEN DO, SHERRON K 528.9 Mouth Pain 09/04/2008 MADL ASSISTANT WOMEN'S SOCCER COACH, RYAN L 528 .9 Mouth Pain 09/04/2008 VIRGEN DO, SHERRON K [...] SHERRON K 528.9 Mouth Pain 01/23/2009 302.72 MAL E ERECTILE DISORDER 01/23/2009 780.79 fee ling tired or poorly 01/23/2009 MICHELE ASSISTANT WOMEN'S SOCCER COACH, BRENNEN ZAMORANO 302.72 MALE ERECTILE DISORDER 01/23/2009 MICHELE ASSISTANT WOMEN'S SOCCER COACH, BRENNEN ZAMORANO 780.79 feeling tired or poorly 01/23/2009 302.72 MAL E ERECTILE DISORDER 01/23/2009 780.79 fee ling tired or poorly 01/23/2009 MICHELE ASSISTANT WOMEN'S SOCCER COACH, BRENNEN ZAMORANO 302.72 MALE ERECTILE DISORDER 01/23/2009 MICHELE ASSISTANT WOMEN'S SOCCER COACH, BRENNEN ZAMORANO 780.79 feeling tired or poorly 01/23/2009 MICHELE ASSISTANT WOMEN'S SOCCER COACH, BRENNEN ZAMORANO 302.72 MALE ERECTILE DISORDER 01/23/2009 MICHELE ASSISTANT WOMEN'S SOCCER COACH, BRENNEN ZAMORANO 780.79 feeling tired or poorly 01/23/2009 MICHELE ASSISTANT WOMEN'S SOCCER COACH, BRENNEN ZAMORANO 302.72 MALE ERECTILE DISORDER 01/23/2009 MICHELE ASSISTANT WOMEN'S SOCCER COACH, BRENNEN ZAMORANO 780.79 feeling tired or poorly 01/23/2009 VIRGEN DO, SHERRON K 302.72 MALE ERECTILE DISORDER 01/23/2009 VIRGEN DO, SHERRON K 780.79 feeling tired or poorly 01/23/2009 MADL ASSISTANT WOMEN'S SOCCER COACH, RYAN L 302 .72 MALE ERECTILE DISORDER 01/23/2009 MADL ASSISTANT WOMEN'S SOCCER COACH, RYAN L 780 .79 feeling tired or poorly 01/23/2009 VIRGEN DO, [...] 780.79 feeling tired or poorly 03/06/2009 789.00 Abd ominal Pain 03/06/2009 MICHELE ASSISTANT WOMEN'S SOCCER COACH, BRENNEN JAUN 789.00 Abdominal Pain 03/06/2009 789.00 Abd ominal Pain 03/06/2009 MICHELE ASSISTANT WOMEN'S SOCCER COACH, BRENNEN JAUN 789.00 Abdominal Pain 03/06/2009 MICHELE ASSISTANT WOMEN'S SOCCER COACH, BRENNEN JAUN 789.00 Abdominal Pain 03/06/2009 MICHELE ASSISTANT WOMEN'S SOCCER COACH, BRENNEN JAUN 789.00 Abdominal Pain 03/06/2009 VIRGEN DO, SHERRON K 789.00 Abdominal Pain 03/06/2009 RYAN HALL APRN 789 .00 Abdominal Pain 03/06/2009 VIRGEN DO, SHERRON K [...] DO, SHERRON K 789.00 Abdominal Pain 03/06/2009 BEVERLEY DIAZ, OLIVIA M 789.00 Abdominal Pain 03/06/2009 VIRGEN DO, SHERRON K 789.00 Abdominal Pain 03/06/2009 VIRGEN DO, SHERRON K 789.00 Abdominal Pain 03/06/2009 BEVERLEY DIAZ, OLIVIA M 789.00 Abdominal Pain 03/06/2009 VIRGEN DO, SHERRON K 789.00 Abdominal Pain 06/13/2009 307.40 INS OMNIA 06/13/2009 V04.81 FLU SHOT 06/13/2009 MICHELE ASSISTANT WOMEN'S SOCCER COACH, BRENNEN ZAMORANO 307.40 INSOMNIA 06/13/2009 MICHELE ASSISTANT WOMEN'S SOCCER COACH, BRENNEN ZAMORANO V04.81 FLU SHOT 06/13/2009 307.40 INS OMNIA 06/13/2009 V04.81 FLU SHOT 06/13/2009 MICHELE ASSISTANT WOMEN'S SOCCER COACH, BRENNEN ZAMORANO 307.40 INSOMNIA 06/13/2009 MICHELE ASSISTANT WOMEN'S SOCCER COACH, BRENNEN ZAMORANO V04.81 FLU SHOT 06/13/2009 MICHELE ASSISTANT WOMEN'S SOCCER COACH, BRENNEN ZAMORANO 307.40 INSOMNIA 06/13/2009 MICHELE ASSISTANT WOMEN'S SOCCER COACH, BRENNEN ZAMORANO V04.81 FLU SHOT 06/13/2009 MICHELE ASSISTANT WOMEN'S SOCCER COACH, BRENNEN ZAMORANO 307.40 INSOMNIA 06/13/2009 MICHELE ASSISTANT WOMEN'S SOCCER COACH, BRENNEN ZAMORANO V04.81 FLU SHOT 06/13/2009 VIRGEN DO, SHERRON K 307.40 INSOMNIA 06/13/2009 VIRGEN DO, SHERRON K V04.81 FLU SHOT 06/13/2009 MADL ASSISTANT WOMEN'S SOCCER COACH, RYAN L 307 .40 INSOMNIA 06/13/2009 MADL ASSISTANT WOMEN'S SOCCER COACH, RYAN L V04 .81 FLU SHOT 06/13/2009 VIRGEN DO, SHERRON K [...] SHERRON K V04.81 FLU SHOT 09/11/2009 728.85 Mus jose Spasm 09/11/2009 847.9 Spra in Back 09/11/2009 RYNE ROGERS, BRENNEN LEPEH 728.85 Muscle Spasm 09/11/2009 RYNE ROGERS, BRENNEN ZAMORANO 847.9 Sprain Back 09/11/2009 728.85 Mus jose Spasm 09/11/2009 847.9 Spra in Back 09/11/2009 RYNE ROGERS, BRENNEN LEPEH 728.85 Muscle Spasm 09/11/2009 RYNE ROGERS, BRENNEN LEPEH 847.9 Sprain Back 09/11/2009 RYNE ROGERS, BRENNEN LEPEH 728.85 Muscle Spasm 09/11/2009 RYNE ROGERS, BRENNEN LEPEH 847.9 Sprain Back 09/11/2009 RYNE ROGERS, BRENNEN LEPEH 728.85 Muscle Spasm 09/11/2009 RYNE ROGERS, BRENNEN ZAMORANO 847.9 Sprain Back 09/11/2009 VIRGEN DO, SHERRON K 728.85 Muscle Spasm 09/11/2009 VIRGEN DO, SHERRON K 847.9 Sprain Back 09/11/2009 MADL ASSISTANT WOMEN'S SOCCER COACH, RYAN L 728 .85 Muscle Spasm 09/11/2009 MADL ASSISTANT WOMEN'S SOCCER COACH, RYAN L 847 .9 Sprain Back 09/11/2009 VIRGEN DO, SHERRON K [...] SHERRON K 847.9 Sprain Back 09/11/2009 BEVERLEY SHAREPOINT SPECIALIST, OLIVIA M 728.85 Muscle Spasm 09/11/2009 BEVERLEY SHAREPOINT SPECIALIST, OLIVIA M 847.9 Sprain Back 09/11/2009 VIRGEN DO, SHERRON K 728.85 Muscle Spasm 09/11/2009 VIRGEN DO, SHERRON K 847.9 Sprain Back 09/11/2009 VIRGEN DO, SHERRON K 728.85 Muscle Spasm 09/11/2009 VIRGEN DO, SHERRON K 847.9 Sprain Back 09/11/2009 BEVERLEY SHAREPOINT SPECIALIST, OLIVIA M 728.85 Muscle Spasm 09/11/2009 BEVERLEY SHAREPOINT SPECIALIST, OLIVIA M 847.9 Sprain Back 09/11/2009 VIRGEN DO, SHERRON K 728.85 Muscle Spasm 09/11/2009 VIRGEN DO, SHERRON K 847.9 Sprain Back 10/23/2009 NODX No Di agnosis 10/23/2009 MICHELE ASSISTANT WOMEN'S SOCCER COACHBRENNEN NODX No Diagnosis 10/23/2009 NODX No Di agnosis 10/23/2009 MICHELE ASSISTANT WOMEN'S SOCCER COACHBRENNEN NODX No Diagnosis 10/23/2009 MICHELE ASSISTANT WOMEN'S SOCCER COACHBRENNEN NODX No Diagnosis 10/23/2009 MICHELE ASSISTANT WOMEN'S SOCCER COACHBRENNEN NODX No Diagnosis 10/23/2009 VIRGEN DO, SHERRON K NODX No Diagnosis 10/23/2009 RYAN HALL APRN NOD X No Diagnosis 10/23/2009 VIRGEN DO, SHERRON K [...] SHERRON K NODX No Diagnosis 10/23/2009 BEVERLEY SHAREPOINT SPECIALIST, OLIVIA M N ODX No Diagnosis 10/23/2009 VIRGEN DO, SHERRON K NODX No Diagnosis 10/23/2009 VIRGEN DO, SHERRON K NODX No Diagnosis 10/23/2009 BEVERLEY SHAREPOINT SPECIALIST, OLIVIA M N ODX No Diagnosis 10/23/2009 VIRGEN DO, SHERRON K NODX No Diagnosis 11/06/2009 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 11/06/2009 MICHELE BRENNEN ROGERS 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 11/06/2009 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 11/06/2009 BRENNEN MICHELE APRN 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 11/06/2009 MICHELE BRENNEN ROGERS 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 11/06/2009 MICHELE BRENNEN ROGERS 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 11/06/2009 VIRGEN DO, SHERRON K 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 11/06/2009 RYAN HALL APRN 257 .2 OTHER TESTICULAR HYPOFUNCTION 11/06/2009 VIRGEN DO, SHERRON [...] Ot 597.80 02/11/2010 Ot 601.1 02/19/2010 300.00 ANX IETY UNSPEC 02/19/2010 BRENNEN MICHELE APRN 300.00 ANXIETY UNSPEC 02/19/2010 300.00 ANX IETY UNSPEC 02/19/2010 BRENNEN MICHELE APRN 300.00 ANXIETY UNSPEC 02/19/2010 BRENNEN MICHELE APRN 300.00 ANXIETY UNSPEC 02/19/2010 BRENNEN MICHELE APRN 300.00 ANXIETY UNSPEC 02/19/2010 VIRGEN DO, SHERRON K 300.00 ANXIETY UNSPEC 02/19/2010 RAFAEL RYAN ROGERS Vanessa 300 .00 ANXIETY UNSPEC 02/19/2010 VIRGEN DO, SHERRON K [...] SHERRON K 300.00 ANXIETY UNSPEC 05/09/2010 719.40 JOLIE N IN JOINT, SITE UNSPECIFIED 05/09/2010 MICHELE ASSISTANT WOMEN'S SOCCER COACH, BRENNEN ZAMORANO 719.40 PAIN IN JOINT, SITE UNSPECIFIED 05/09/2010 719.40 JOLIE N IN JOINT, SITE UNSPECIFIED 05/09/2010 MICHELE ASSISTANT WOMEN'S SOCCER COACH, BRENNEN ZAMORANO 719.40 PAIN IN JOINT, SITE UNSPECIFIED 05/09/2010 MICHELE ASSISTANT WOMEN'S SOCCER COACH, BRENNEN ZAMORANO 719.40 PAIN IN JOINT, SITE UNSPECIFIED 05/09/2010 MICHELE ASSISTANT WOMEN'S SOCCER COACH, BRENNEN ZAMORANO 719.40 PAIN IN JOINT, SITE UNSPECIFIED 05/09/2010 VIRGEN DO, SHERRON K 719.40 PAIN IN JOINT, SITE UNSPECIFIED 05/09/2010 RAFAEL ASSISTANT WOMEN'S SOCCER COACH, RYAN L 719 .40 PAIN IN JOINT, SITE UNSPECIFIED 05/09/2010 VIRGEN [...] PAIN IN JOINT, SITE UNSPECIFIED 06/13/2010 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 06/13/2010 MICHELE ASSISTANT WOMEN'S SOCCER COACH, BRENNEN JAUN 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 06/13/2010 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 06/13/2010 MICHELE ASSISTANT WOMEN'S SOCCER COACH, BRENNEN JAUN 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 06/13/2010 MICHELE ASSISTANT WOMEN'S SOCCER COACH, BRENNEN JAUN 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 06/13/2010 MICHELE ASSISTANT WOMEN'S SOCCER COACH, BRENNEN JAUN 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 06/13/2010 VIRGEN DO, SHERRON K 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 06/13/2010 MADL ASSISTANT WOMEN'S SOCCER COACH, RYAN L 239 .1 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 [...] OF UNSPECIFIED NATURE OF RESPIRATORY SYSTEM 06/13/2010 SHERRON VIRGEN DO 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 06/13/2010 OLIVIA AUGUSTINE 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 06/13/2010 SHERRON VIRGEN DO 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 07/22/2010 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 07/22/2010 300.02 AN GEN ANXIETY 07/22/2010 301.9 PD P ERS DIS NOS 07/22/2010 309.81 AN PTSD 07/22/2010 MICHELE SUE BRENNEN ZAMORANO 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 07/22/2010 MICHELE SUE BRENNEN JAUN 300.02 AN GEN ANXIETY 07/22/2010 MICHELE SUE BRENNEN JAUN 301.9 PD PERS DIS NOS 07/22/2010 MICHELE SUE BRENNEN AJUN 309.81 AN PTSD 07/22/2010 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 07/22/2010 300.02 AN GEN ANXIETY 07/22/2010 301.9 PD P ERS DIS NOS 07/22/2010 309.81 AN PTSD 07/22/2010 MICHELE SUE BRENNEN ZAMORANO 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 07/22/2010 MICHELE SUE BRENNEN JAUN 300.02 AN GEN ANXIETY 07/22/2010 MICHELE SUE BRENNEN JAUN 301.9 PD PERS DIS NOS 07/22/2010 MICHELE SUE BRENNEN JAUN 309.81 AN PTSD 07/22/2010 MICHELE SUE BRENNEN ZAMORANO 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 07/22/2010 MICHELE SUE BRENNEN JAUN 300.02 AN GEN ANXIETY 07/22/2010 MICHELE ASSISTANT WOMEN'S SOCCER COACH, BRENNEN JAUN 301.9 PD PERS DIS NOS 07/22/2010 MICHELE SUE BRENNEN JAUN 309.81 AN PTSD 07/22/2010 MICHELE SUE BRENNEN JAUN 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 07/22/2010 MICHELE SUE BRENNEN JAUN 300.02 AN GEN ANXIETY 07/22/2010 MICHELE SUE BRENNEN JAUN 301.9 PD PERS DIS NOS 07/22/2010 MICHELE SUE BRENNEN JAUN 309.81 AN PTSD 07/22/2010 VIRGEN DO, SHERRON K 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 07/22/2010 VIRGEN DO, SHERRON K 300.02 AN GEN ANXIETY 07/22/2010 VIRGEN DO, SHERRON K 301.9 PD PERS DIS NOS 07/22/2010 VIRGEN DO, SHERRON K 309.81 AN PTSD 07/22/2010 MADL ASSISTANT WOMEN'S SOCCER COACH, RYAN L 295 .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 07/22/2010 MADL ASSISTANT WOMEN'S SOCCER COACH, RYAN L 300 .02 AN GEN ANXIETY 07/22/2010 MADL ASSISTANT WOMEN'S SOCCER COACH, RYAN L 301 .9 PD PERS DIS NOS 07/22/2010 MADL ASSISTANT WOMEN'S SOCCER COACH, RYAN L 309 .81 AN PTSD 07/22/2010 VIRGEN DO, SHERRON K [...] SHERRON K 309.81 AN PTSD 07/22/2010 BEVERLEY SHAREPOINT SPECIALIST, OLIVIA M 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 07/22/2010 BEVERLEY SHAREPOINT SPECIALIST, OLIVIA M 300.02 AN GEN ANXIETY 07/22/2010 BEVERLEY SHAREPOINT SPECIALIST, OLIVIA M 301.9 PD PERS DIS NOS 07/22/2010 BEVERLEY SHAREPOINT SPECIALIST, OLIVIA M 309.81 AN PTSD 07/22/2010 VIRGEN [...] SHERRON K 309.81 AN PTSD 07/22/2010 BEVERLEY SHAREPOINT SPECIALIST, OLIVIA M 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 07/22/2010 BEVERLEY SHAREPOINT SPECIALIST, OLIVIA M 300.02 AN GEN ANXIETY 07/22/2010 BEVERLEY SHAREPOINT SPECIALIST, OLIVIA M 301.9 PD PERS DIS NOS 07/22/2010 BEVERLEY SHAREPOINT SPECIALIST, OLIVIA M 309.81 AN PTSD 07/22/2010 VIRGEN DO, SHERRON K 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 07/22/2010 VIRGEN DO, SHERRON K 300.02 AN GEN ANXIETY 07/22/2010 VIRGEN DO, SHERRON K 301.9 PD PERS DIS NOS 07/22/2010 VIRGEN DO, SHERRON K 309.81 AN PTSD 08/08/2010 564.1 Irri table Bowel Syndrome 08/08/2010 BRENNEN MICHELE APRN 564.1 Irritable Bowel Syndrome 08/08/2010 564.1 Irri table Bowel Syndrome 08/08/2010 BRENNEN MICHELE APRN 564.1 Irritable Bowel Syndrome 08/08/2010 BRENNEN MICHELE APRN 564.1 Irritable Bowel Syndrome 08/08/2010 BRENNEN MICHELE APRN 564.1 Irritable Bowel Syndrome 08/08/2010 VIRGEN DO, SHERRON K 564.1 Irritable Bowel Syndrome 08/08/2010 RYAN HALL APRN 564 .1 Irritable Bowel Syndrome 08/08/2010 VIRGEN DO, SHERORN K 564.1 Irritable Bowel Syndrome 08/08/2010 VIRGEN [...] Ot E849.0 10/29/2010 Ot E884.9 12/17/2010 562.10 Div erticulosis Of Colon (without Hemorrhage) 12/17/2010 709.9 Unsp ecified Disorder Of Skin And Subcutaneous Tissue 12/17/2010 BRENNEN MICHELE APRN 562.10 Diverticulosis Of Colon (without Hemorrhage) 12/17/2010 BRENNEN MICHELE APRN 709.9 Unspecified Disorder Of Skin And Subcutaneous Tissue 12/17/2010 562.10 Div erticulosis Of Colon (without Hemorrhage) 12/17/2010 709.9 Unsp ecified Disorder Of Skin And Subcutaneous Tissue 12/17/2010 BRENNEN MICHELE APRN 562.10 Diverticulosis Of Colon (without Hemorrhage) 12/17/2010 BRENNEN MICHELE APRN 709.9 Unspecified Disorder Of Skin And Subcutaneous Tissue 12/17/2010 BRENNEN MICHELE APRN 562.10 Diverticulosis Of Colon (without Hemorrhage) 12/17/2010 BRENNEN MICHELE APRN 709.9 Unspecified Disorder Of Skin And Subcutaneous Tissue 12/17/2010 BRENNEN MICHELE APRN 562.10 Diverticulosis Of Colon (without Hemorrhage) 12/17/2010 BRENNEN MICHELE APRN 709.9 Unspecified Disorder Of Skin And Subcutaneous Tissue 12/17/2010 VIRGEN DO, SHERRON K 562.10 Diverticulosis Of Colon (without Hemorrhage) 12/17/2010 VIRGEN DO, SHERRON K 709.9 Unspecified Disorder Of Skin And Subcutaneous Tissue 12/17/2010 MADL ASSISTANT WOM[employer]'S SOCCER COACH, RYAN L 562 .10 Diverticulosis Of Colon (without Hemorrhage) 12/17/2010 MADL ASSISTANT WOMEN'S SOCCER COACH, RYAN L 709 .9 Unspecified Disorder Of Skin And Subcutaneous Tissue [...] Disorder Of Skin And Subcutaneous Tissue 12/17/2010 SHERRON VIRGEN DO 562.10 Diverticulosis Of Colon (without Hemorrhage) 12/17/2010 SHERRON VIRGEN DO 709.9 Unspecified Disorder Of Skin And Subcutaneous Tissue 12/17/2010 SHERRON VIRGEN DO 562.10 Diverticulosis Of Colon (without Hemorrhage) 12/17/2010 SHERRON VIRGEN DO 709.9 Unspecified Disorder Of Skin And Subcutaneous Tissue 12/17/2010 OLIVIA AUGUSTINE 562.10 Diverticulosis Of Colon (without Hemorrhage) 12/17/2010 OLIVIA AUGUSTINE 709.9 Unspecified Disorder Of Skin And Subcutaneous Tissue 12/17/2010 SHERRON VIRGEN DO 562.10 Diverticulosis Of Colon (without Hemorrhage) 12/17/2010 SHERRON VIRGEN DO 709.9 Unspecified Disorder Of Skin And Subcutaneous Tissue 12/17/2010 SHERRON VIRGEN DO 562.10 Diverticulosis Of Colon (without Hemorrhage) 12/17/2010 SHERRON VIRGEN DO 709.9 Unspecified Disorder Of Skin And Subcutaneous Tissue 12/17/2010 OLIVIA AUGUSTINE 562.10 Diverticulosis Of Colon (without Hemorrhage) 12/17/2010 OLIVIA AUGUSTINE 709.9 Unspecified Disorder Of Skin And Subcutaneous Tissue 12/17/2010 SHERRON VIRGEN DO 562.10 Diverticulosis Of Colon (without Hemorrhage) 12/17/2010 SHERRON VIRGEN DO 709.9 Unspecified Disorder Of Skin And Subcutaneous Tissue 02/01/2011 Ot 564.00 02/01/2011 Ot 789.00 02/19/2011 Ot 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 02/19/2011 Ot 452 PORTAL VEIN THROMBOSIS 02/19/2011 Ot 530.81 ESO PHAGEAL REFLUX 02/19/2011 Ot 558.9 LINWOOD NF GASTROENTERIT NEC 02/19/2011 Ot 562.10 DIV ERTICULOSIS COLON (W/O MENT OF HEMORR 02/19/2011 Ot 564.00 UNS PEC CONSTIPATION 02/19/2011 Ot 575.6 GB C HOLESTEROLOSIS 02/19/2011 Ot 682.2 CELL ULITIS OF TRUNK 02/21/2011 Ot V58.31 02/23/2011 452 Portal Vein Thrombosis 02/23/2011 682.9 Cell ulitis And Abscess Of Unspecified Sites 02/23/2011 MICHELE ASSISTANT WOM[employer]'S SOCCER COACH, BRENNEN ZAMORANO 452 Portal Vein Thrombosis 02/23/2011 MICHELE ASSISTANT WOMEN'S SOCCER COACH, BRENNEN LEPEH 682.9 Cellulitis And Abscess Of Unspecified Sites 02/23/2011 452 Portal Vein Thrombosis 02/23/2011 682.9 Cell ulitis And Abscess Of Unspecified Sites 02/23/2011 MICHELE ASSISTANT WOMEN'S SOCCER COACH, BRENNEN LEPEH 452 Portal Vein Thrombosis 02/23/2011 MICHELE ASSISTANT WOMEN'S SOCCER COACH, BRENNEN LEPEH 682.9 Cellulitis And Abscess Of Unspecified Sites 02/23/2011 MICHELE ASSISTANT WOMEN'S SOCCER COACH, BRENNEN ZAMORANO 452 Portal Vein Thrombosis 02/23/2011 MICHELE ASSISTANT WOMEN'S SOCCER COACH, BRENNEN LEPEH 682.9 Cellulitis And Abscess Of Unspecified Sites 02/23/2011 MICHELE ASSISTANT WOMEN'S SOCCER COACH, BRENNEN ZAMORANO 452 Portal Vein Thrombosis 02/23/2011 MICHELE ASSISTANT WOMEN'S SOCCER COACH, BRENNEN ZAMORANO 682.9 Cellulitis And Abscess Of Unspecified Sites 02/23/2011 VIRGEN DO, SHERRON K 452 Portal Vein Thrombosis 02/23/2011 VIRGEN DO, SHERRON K 682.9 Cellulitis And Abscess Of Unspecified Sites 02/23/2011 MADL ASSISTANT WOM[employer]'S SOCCER COACH, RYAN L 452 Portal Vein Thrombosis 02/23/2011 MADL ASSISTANT WOMEN'S SOCCER COACH, RYAN L 682 .9 Cellulitis And Abscess Of Unspecified Sites 02/23/2011 [...] Abscess Of Unspecified Sites 02/23/2011 OLIVIA AUGUSTINE 4 52 Portal Vein Thrombosis 02/23/2011 OLIVIA UAGUSTINE 682.9 Cellulitis And Abscess Of Unspecified Sites 02/23/2011 VIRGEN DO, SHERRON K 452 Portal Vein Thrombosis 02/23/2011 VIRGEN DO, SHERRON K 682.9 Cellulitis And Abscess Of Unspecified Sites 02/23/2011 VIRGEN DO, SHERRON K 452 Portal Vein Thrombosis 02/23/2011 VIRGEN DO, SHERRON K 682.9 Cellulitis And Abscess Of Unspecified Sites 02/23/2011 OLIVIA AUGUSTINE M 4 52 Portal Vein Thrombosis 02/23/2011 OLIVIA AUGUSTINE M 682.9 Cellulitis And Abscess Of Unspecified Sites 02/23/2011 VIRGEN DO, SHERRON K 452 Portal Vein Thrombosis 02/23/2011 VIRGEN DO, SHERRON K 682.9 Cellulitis And Abscess Of Unspecified Sites 02/23/2011 Ot 682.9 02/23/2011 Ot V58.61 02/23/2011 Ot 300.00 02/23/2011 Ot 786.50 02/24/2011 780.50 SLE EP DISTURBANCE, UNSPECIFIED 02/24/2011 V58.30 Enc ounter For Change Or Removal Of Nonsurgical Wound Dressing 02/24/2011 BRENNEN MICHELE APRN 780.50 SLEEP DISTURBANCE, UNSPECIFIED 02/24/2011 BRENNEN MICHELE APRN V58.30 Encounter For Change Or Removal Of Nonsurgical Wound D ressing 02/24/2011 780.50 SLE EP DISTURBANCE, UNSPECIFIED 02/24/2011 V58.30 Enc ounter For Change Or Removal Of Nonsurgical Wound Dressing 02/24/2011 MICHELE ASSISTANT WOMEN'S SOCCER COACH, BRENNEN ZAMORANO 780.50 SLEEP DISTURBANCE, UNSPECIFIED 02/24/2011 MICHELE ASSISTANT WOMEN'S SOCCER COACH, BRENNEN ZAMORANO V58.30 Encounter For Change Or Removal Of Nonsurgical Wound D ressing 02/24/2011 MICHELE ASSISTANT WOMEN'S SOCCER COACH, BRENNEN ZAMORANO 780.50 SLEEP DISTURBANCE, UNSPECIFIED 02/24/2011 MICHELE ASSISTANT WOMEN'S SOCCER COACH, BRENNEN ZAMORANO V58.30 Encounter For Change Or Removal Of Nonsurgical Wound D ressing 02/24/2011 MICHELE ASSISTANT WOMEN'S SOCCER COACH, BRENNEN ZAMORANO 780.50 SLEEP DISTURBANCE, UNSPECIFIED 02/24/2011 MICHELE ASSISTANT WOMEN'S SOCCER COACH, BRENNEN ZAMORANO V58.30 Encounter For Change Or Removal Of Nonsurgical Wound D ressing 02/24/2011 VIRGEN DO, SHERRON K 780.50 SLEEP DISTURBANCE, UNSPECIFIED 02/24/2011 VIRGEN DO, SHERRON K V58.30 Encounter For Change Or Removal Of Nonsurgical Wound Dressing 02/24/2011 MADL ASSISTANT WOMEN'S SOCCER COACH, RYAN L 780 .50 SLEEP DISTURBANCE, UNSPECIFIED 02/24/2011 MADL ASSISTANT WOMEN'S SOCCER COACH, RYAN L V58 .30 Encounter For Change Or Removal Of Nonsurgical [...] Removal Of Nonsurgical Wound Dressing 02/24/2011 BEVERLEY SHAREPOINT SPECIALIST, OLIVIA M 780.50 SLEEP DISTURBANCE, UNSPECIFIED 02/24/2011 BEVERLEY SHAREPOINT SPECIALIST, OLIVIA M V58.30 Encounter For Change Or Removal Of Nonsurgical Wound D ressing 02/24/2011 VIRGEN DO, SHERRON K 780.50 SLEEP DISTURBANCE, UNSPECIFIED 02/24/2011 VIRGEN DO, SHERRON K V58.30 Encounter For Change Or Removal Of Nonsurgical Wound Dressing 02/24/2011 VIRGEN DO, SHERRON K 780.50 SLEEP DISTURBANCE, UNSPECIFIED 02/24/2011 VIRGEN DO, SHERRON K V58.30 Encounter For Change Or Removal Of Nonsurgical Wound Dressing 02/24/2011 BEVERLEY SHAREPOINT SPECIALIST, OLIVIA M 780.50 SLEEP DISTURBANCE, UNSPECIFIED 02/24/2011 BEVERLEY SHAREPOINT SPECIALIST, OLIVIA M V58.30 Encounter For Change Or Removal Of Nonsurgical Wound D ressing 02/24/2011 VIRGEN DO, SHERRON K 780.50 SLEEP DISTURBANCE, UNSPECIFIED 02/24/2011 VIRGEN DO, SHERRON K V58.30 Encounter For Change Or Removal Of Nonsurgical Wound Dressing 03/02/2011 789.05 Abd ominal Pain Periumbilic 03/02/2011 BRENNEN MICHELE APRN 789.05 Abdominal Pain Periumbilic 03/02/2011 789.05 Abd ominal Pain Periumbilic 03/02/2011 BRENNEN MICHELE APRN 789.05 Abdominal Pain Periumbilic 03/02/2011 BRENNEN MICHELE APRN 789.05 Abdominal Pain Periumbilic 03/02/2011 BRENNEN MICHELE APRN 789.05 Abdominal Pain Periumbilic 03/02/2011 VIRGEN DO, SHERRON K 789.05 Abdominal Pain Periumbilic 03/02/2011 RYAN HALL APRN 789 .05 Abdominal Pain Periumbilic 03/02/2011 VIRGEN DO, SHERRON [...] K 789.05 Abdominal Pain Periumbilic 03/18/2011 V68.1 ISSU E OF REPEAT PRESCRIPTIONS 03/18/2011 RYNE ASSISTANT WOMEN'S SOCCER COACHBRENNEN V68.1 ISSUE OF REPEAT PRESCRIPTIONS 03/18/2011 V68.1 ISSU E OF REPEAT PRESCRIPTIONS 03/18/2011 BRENNEN MICHELE APRN V68.1 ISSUE OF REPEAT PRESCRIPTIONS 03/18/2011 BRENNEN MICHELE APRN V68.1 ISSUE OF REPEAT PRESCRIPTIONS 03/18/2011 BRENNEN MICHELE APRN V68.1 ISSUE OF REPEAT PRESCRIPTIONS 03/18/2011 VIRGEN DO, SHERRON K V68.1 ISSUE OF REPEAT PRESCRIPTIONS 03/18/2011 RYAN HALL APRN Vanessa V68 .1 ISSUE OF REPEAT PRESCRIPTIONS 03/18/2011 VIRGEN DO, [...] ISSUE OF REPEAT PRESCRIPTIONS 03/24/2011 Ot 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 03/24/2011 Ot 305.1 TOBA MEDICAL PHYSIOLOGIST USE DISORDER 03/24/2011 Ot 530.81 ESO PHAGEAL REFLUX 03/24/2011 Ot 564.00 UNS PEC CONSTIPATION 03/24/2011 Ot 682.2 CELL ULITIS OF TRUNK 03/24/2011 Ot V12.51 HX- VENOUS THROMBOSIS EMBOLISM 03/24/2011 Ot V12.79 PER MATHEW HISTORY OT SPEC DIGESTIVE SYST 03/24/[address] ABSENCE INTESTINE - LARGE/SMALL 03/24/[address] ABSENCE OF OTH ORGAN 03/24/2011 Ot V58.61 ANTICOAGULANTS,LT,CURRENT USE 03/25/2011 V58.69 MED ICATION HIGH RISK 03/25/2011 RYNE ROGERS BRENNEN ZAMORANO V58.69 MEDICATION HIGH RISK 03/25/2011 V58.69 MED ICATION HIGH RISK 03/25/2011 RYNE ROGERS BRENNEN ZAMORANO V58.69 MEDICATION HIGH RISK 03/25/2011 RYNE ROGERS, BRENNEN ZAMORANO V58.69 MEDICATION HIGH RISK 03/25/2011 RYNE ROGERS, BRENNEN ZAMORANO V58.69 MEDICATION HIGH RISK 03/25/2011 VIRGEN DO, SHERRON K V58.69 MEDICATION HIGH RISK 03/25/2011 RAFAEL ROGERS RYAN L V58 .69 MEDICATION HIGH RISK 03/25/2011 VIRGEN DO, SHERRON [...] V58.69 MEDICATION HIGH RISK 03/25/2011 OLIVIA AUGUSTINE M V58.69 MEDICATION HIGH RISK 03/25/2011 VIRGEN DO, SHERRON K V58.69 MEDICATION HIGH RISK 03/25/2011 VIRGEN DO, SHERRON K V58.69 MEDICATION HIGH RISK 03/25/2011 OLIVIA AUGUSTINE M V58.69 MEDICATION HIGH RISK 03/25/2011 VIRGEN DO, SHERRON K V58.69 MEDICATION HIGH RISK 03/26/2011 V12.04 PER MATHEW HISTORY OF METHICILLIN RESISTANT STAPHYLOCOCCUS AUREUS 03/26/2011 BRENNEN MICHELE APRN V12.04 PERSONAL HISTORY OF METHICILLIN RESISTANT STAPHYLOCOCC US AUREUS 03/26/2011 V12.04 PER MATHEW HISTORY OF METHICILLIN RESISTANT STAPHYLOCOCCUS AUREUS 03/26/2011 BRENNEN MICHELE APRN V12.04 PERSONAL HISTORY OF METHICILLIN RESISTANT STAPHYLOCOCC US AUREUS 03/26/2011 BRENNEN MICHELE APRN V12.04 PERSONAL HISTORY OF METHICILLIN RESISTANT STAPHYLOCOCC US AUREUS 03/26/2011 BRENNEN MICHELE APRN V12.04 PERSONAL HISTORY OF METHICILLIN RESISTANT STAPHYLOCOCC US AUREUS 03/26/2011 VIRGEN DO, SHERRON K 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 03/26/2011 MADVanessa ROGERS, RYAN L V12 .04 PERSONAL HISTORY OF METHICILLIN RESISTANT STAPHYLOCOCCUS AUREUS [...] M V12.04 PERSONAL HISTORY OF METHICILLIN RESISTANT STAPHYLOCOCC US AUREUS 03/26/2011 VIRGEN DO, SHERRON K 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 03/26/2011 VIRGEN DO, SHERRON K 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 03/26/2011 OLIVIA AUGUSTINE M V12.04 PERSONAL HISTORY OF METHICILLIN RESISTANT STAPHYLOCOCC US AUREUS 03/26/2011 VIRGEN DO, SHERRON K 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 09/08/2011 Ot 276.51 09/08/2011 Ot 295.30 09/08/2011 Ot 300.00 09/08/2011 Ot 304.00 09/08/2011 Ot 305.1 09/08/2011 Ot 309.81 09/08/2011 Ot 722.91 09/08/2011 Ot V12.51 09/20/2011 Ot 786.50 09/20/2011 Ot 786.52 09/30/2011 298.9 P PS YCHOSIS NOS 09/30/2011 MICHELE ASSISTANT WOMEN'S SOCCER COACH, BRENNEN JAUN 298.9 P PSYCHOSIS NOS 09/30/2011 298.9 P PS YCHOSIS NOS 09/30/2011 MICHELE ASSISTANT WOMEN'S SOCCER COACH, BRENNEN ZAMORANO 298.9 P PSYCHOSIS NOS 09/30/2011 MICHELE ASSISTANT WOMEN'S SOCCER COACH, BRENNEN ZAMORANO 298.9 P PSYCHOSIS NOS 09/30/2011 MICHELE ASSISTANT WOMEN'S SOCCER COACH, BRENNEN ZAMORANO 298.9 P PSYCHOSIS NOS 09/30/2011 VIRGEN DO, SHERRON K 298.9 P PSYCHOSIS NOS 09/30/2011 RAFAEL ASSISTANT WOMEN'S SOCCER COACHNIA De La CruzA L 298 .9 P PSYCHOSIS NOS 09/30/2011 VIRGEN DO, SHERRON K 298.9 P PSYCHOSIS NOS 09/30/2011 VRIGEN DO, SHERRON K 298.9 P PSYCHOSIS NOS [...] K 298.9 P PSYCHOSIS NOS 09/30/2011 BEVERLEY SHAREPOINT SPECIALIST, OLIVIA M 298.9 P PSYCHOSIS NOS 09/30/2011 VIRGEN DO, SHERRON K 298.9 P PSYCHOSIS NOS 09/30/2011 VIRGEN DO, SHERRON K 298.9 P PSYCHOSIS NOS 09/30/2011 BEVERLEY SHAREPOINT SPECIALIST, OLIVIA M 298.9 P PSYCHOSIS NOS 09/30/2011 VIRGEN DO, SHERRON K 298.9 P PSYCHOSIS NOS 10/04/2013 BRENNEN MICHELE APRN 346.90 MIGRAINE HEADACHE 10/04/2013 RYNE MONTES DE OCAN, BRENNEN ZAMORANO 346.90 MIGRAINE HEADACHE 10/04/2013 VIRGEN DO, SHERRON K 346.90 MIGRAINE HEADACHE 10/04/2013 RAFAEL ROGERS, RYAN L 346 .90 MIGRAINE HEADACHE 10/04/2013 VIRGEN DO, SHERRON K [...] DO, SHERRON K 346.90 MIGRAINE HEADACHE 10/04/2013 OLIVIA AUGUSTINE M 346.90 MIGRAINE HEADACHE 10/04/2013 VIRGEN DO, SHERRON K 346.90 MIGRAINE HEADACHE 10/04/2013 VIRGEN DO, SHERRON K 346.90 MIGRAINE HEADACHE 10/04/2013 OLIVIA AUGUSTINE M 346.90 MIGRAINE HEADACHE 10/04/2013 VIRGEN DO, SHERRON K 346.90 MIGRAINE HEADACHE 02/13/2014 VIRGEN DO, SHERRON K 338.29 OTHER CHRONIC PAIN 02/13/2014 RAFAEL MONTES DE OCAN, RYAN L 338 .29 OTHER CHRONIC PAIN 02/13/2014 VIRGEN DO, SHERRON [...] K 338.29 OTHER CHRONIC PAIN 02/19/2014 MADL ASSISTANT WOMEN'S SOCCER COACH RYAN L 796 .9 OTHER NONSPECIFIC ABNORMAL FINDINGS 02/19/2014 VIRGEN DO, [...] K 796.9 OTHER NONSPECIFIC ABNORMAL FINDINGS 02/19/2014 BEVERLEY SHAREPOINT SPECIALIST, OLIVIA M 796.9 OTHER NONSPECIFIC ABNORMAL FINDINGS 02/19/2014 VIRGEN DO, SHERRON K 796.9 OTHER NONSPECIFIC ABNORMAL FINDINGS 02/19/2014 VIRGEN DO, SHERRON K 796.9 OTHER NONSPECIFIC ABNORMAL FINDINGS 02/19/2014 BEVERLEY SHAREPOINT SPECIALIST, OLIVIA M 796.9 OTHER NONSPECIFIC ABNORMAL FINDINGS 02/19/2014 [...] 729.5 PAIN IN LIMB 08/22/2014 OLIVIA AUGUSTINE Kitty 3 11 MO DEPRESS NOS 08/22/2014 YOCASTA VIRGEN DOA K 311 MO DEPRESS NOS 08/22/2014 YOCASTA VIRGEN DOA K 311 MO DEPRESS NOS 08/22/2014 OLIVIA AUGUSTINE M 3 11 MO DEPRESS NOS 08/22/2014 YOCASTA VIRGEN DOA K 311 MO DEPRESS NOS 11/05/2014 OLIVIA AUGUSTINE Kitty 296.32 MO DEPRESSIVE RECURRENT MODERATE 11/05/2014 SHERRON VIRGEN DO K 296.32 MO DEPRESSIVE RECURRENT MODERATE 02/18/2015 Ot 784.0 02/18/2015 Ot V81.5 02/18/2015 Ot 593.9 02/18/2015 Ot 598.9 02/18/2015 Ot V72.63 02/18/2015 Ot V72.83 02/18/2015 Ot V74.8 02/18/2015 Ot 348.9 02/18/2015 Ot 784.0 02/18/2015 Ot 452 02/18/2015 Ot 557.0 02/18/2015 Ot 789.59 02/18/2015 GILES CHRISTIANSON MD Ot 300. 00 ANXIETY STATE NOS 02/18/2015 GILES CHRISTIANSON MD Ot 301. 0 PARANOID PERSONALITY 02/18/2015 GILES CHRISTIANSON MD Ot 414. 01 CORONARY ATHEROSCLEROSIS OF [place] CORON 02/18/2015 GILES CHRISTIANSON MD Ot 424. 0 MITRAL VALVE DISORDER 02/18/2015 GILES CHRISTIANSON MD Ot 427. 32 ATRIAL FLUTTER 02/18/2015 GILES CHRISTIANSON MD Ot 919. 4 INSECT BITE NEC 02/18/2015 GILES CHRISTIANSON MD Ot E000 .8 OTHER EXTERNAL CAUSE STATUS 02/18/2015 GILES CHRISTIANSON MD Ot E906 .4 NONVENOM ARTHROPOD BITE 06/27/2017 SAJAN CRUZ MD Ot F41.9 ANXIETY DISORDER, UNSPECIFIED 06/27/2017 SAJAN CRUZ MD Ot K21.9 GASTRO-ESOPHAGEAL REFLUX DISEASE WITHOUT 06/27/2017 SAJAN CRUZ MD Ot K57.90 DVRTCLOS OF INTEST, PART UNSP, W/O PERF 06/27/2017 SAJAN CRUZ MD, Ot K62.5 HEMORRHAGE OF ANUS AND RECTUM 06/27/2017 SAJAN CRUZ MD, Ot M47.9 SPONDYLOSIS, UNSPECIFIED 06/27/2017 SAJAN CRUZ MD, Ot R10.32 LEFT LOWER QUADRANT PAIN 06/27/2017 SAJAN CRUZ MD, Ot Z79.82 SKILLED NURSING (CURRENT) USE OF ASPIRIN 06/27/2017 SAJAN CRUZ MD, Ot Z90.49 ACQUIRED ABSENCE OF OTHER SPECIFIED PART 06/28/2017 TERESA MENESES MD Ot K92. 1 MELENA 06/28/2017 TERESA MENESES MD Ot R10. 9 UNSPECIFIED ABDOMINAL PAIN 06/29/2017 ROSITA WATKINS W 300.0 0 ANXIETY STATE, UNSPECIFIED 06/29/2017 ROSITA WATKINS 562.1 1 DIVERTICULITIS OF COLON WITHOUT MENTION OF HEMORRHAGE 06/29/2017 ROSITA WATKINS W F41.9 ANXIETY DISORDER, UNSPECIFIED 06/29/2017 ROSITA WATKINS A K57.3 3 DVTRCLI OF LG INT W/O PERFORATION OR [...] PAIN 06/29/2017 SAJAN CRUZ MD, Ot Z79.82 SKILLED NURSING (CURRENT) USE OF ASPIRIN 06/29/2017 SAJAN CRUZ MD, Ot Z90.49 ACQUIRED ABSENCE OF OTHER SPECIFIED PART 06/29/2017 ANTHONY MD, SAJAN D Ot F41.9 ANXIETY DISORDER, UNSPECIFIED 06/29/2017 SAJAN CRUZ MD, Ot K21.9 GASTRO-ESOPHAGEAL REFLUX DISEASE WITHOUT 06/29/2017 SAJAN CRUZ MD, Ot K57.90 DVRTCLOS OF INTEST, PART UNSP, W/O PERF 06/29/2017 SAJAN CRUZ MD, Ot K62.5 HEMORRHAGE OF ANUS AND RECTUM 06/29/2017 SAJAN CRUZ MD, Ot M47.9 SPONDYLOSIS, UNSPECIFIED 06/29/2017 SAJAN CRUZ MD, Ot R10.32 LEFT LOWER QUADRANT PAIN 06/29/2017 SAJAN CRUZ MD, Ot Z79.82 SKILLED NURSING (CURRENT) USE OF ASPIRIN 06/29/2017 SAJAN CRUZ MD, Ot Z90.49 ACQUIRED ABSENCE OF OTHER SPECIFIED PART 06/30/2017 TERESA MENESES MD J Ot K92. 1 MELENA 06/30/2017 KASANDRA MENESES MDUS J Ot R10. 9 UNSPECIFIED ABDOMINAL PAIN 06/30/2017 KASANDRA MENESES MDUS J Ot K92. 1 MELENA 06/30/2017 KASANDRA MENESES MDUS J Ot R10. 9 UNSPECIFIED ABDOMINAL PAIN 07/12/2017 IMMANUEL FRANCO MD Ot R10.9 UNSPECIFIED ABDOMINAL PAIN 07/12/2017 IMMANUEL FRANCO MD Ot Z01.81 8 ENCOUNTER FOR OTHER PREPROCEDURAL EXAMIN 07/12/2017 IMMANUEL FRANCO MD Ot Z87.19 PERSONAL HISTORY OF OTHER DISEASES OF 07/12/2017 IMMANUEL FRANCO MD Ot R10.9 UNSPECIFIED ABDOMINAL PAIN 07/12/2017 IMMANUEL FRANCO MD Ot Z01.81 8 ENCOUNTER FOR OTHER PREPROCEDURAL EXAMIN 07/12/2017 IMMANUEL [...] PAIN 07/14/2017 IMMANUEL FRANCO MD, Ot Z79.82 SENIOR CONTROLS ENGINEER (CURRENT) USE OF ASPIRIN 07/14/2017 IMMANUEL FRANCO MD, Ot Z79.89 9 OTHER SKILLED NURSING (CURRENT) DRUG THERAPY 07/14/2017 IMMANUEL FRANCO MD, Ot Z86.01 0 PERSONAL HISTORY OF COLONIC POLYPS 07/14/2017 IMMANUEL FRANCO MD, Ot Z98.1 ARTHRODESIS STATUS 08/23/2017 JUAN MANUEL EVANS DO Ot B18.2 CHRONIC VIRAL HEPATITIS C 08/23/2017 JUAN MANUEL EVANS DO Ot F32.9 MAJOR DEPRESSIVE DISORDER, SINGLE EPISOD 08/23/2017 JUAN MANUEL EVANS DO Ot F41.9 ANXIETY DISORDER, UNSPECIFIED 08/23/2017 JUAN MANUEL EVANS DO Ot I25.10 ATHSCL HEART DISEASE OF [place] CORONARY 08/23/2017 JUAN MANUEL EVANS DO Ot I26.99 OTHER PULMONARY EMBOLISM WITHOUT ACUTE C 08/23/2017 JUAN MANUEL EVANS DO Ot I48.0 PAROXYSMAL ATRIAL FIBRILLATION 08/23/2017 JUAN MANUEL EVANS DO Ot K21.9 GASTRO-ESOPHAGEAL REFLUX DISEASE WITHOUT 08/23/2017 JUAN MANUEL EVANS DO Ot R09.02 HYPOXEMIA 08/23/2017 JUAN MANUEL EVANS DO Ot Z86.71 8 PERSONAL HISTORY OF OTHER VENOUS THROMBO 08/23/2017 JUAN MANUEL EVANS DO Ot Z87.89 1 PERSONAL HISTORY OF NICOTINE DEPENDENCE 08/23/2017 JUAN MANUEL EVANS DO Ot Z90.81 ACQUIRED ABSENCE OF SPLEEN 08/23/2017 JUAN MANUEL EVANS DO Ot Z98.1 ARTHRODESIS STATUS 08/24/2017 JUAN MANUEL EVANS DO Ot B18.2 CHRONIC VIRAL HEPATITIS C 08/24/2017 JUAN MANUEL EVANS DO Ot F32.9 MAJOR DEPRESSIVE DISORDER, SINGLE EPISOD 08/24/2017 JUAN MANUEL EVANS DO Ot F41.9 ANXIETY DISORDER, UNSPECIFIED 08/24/2017 NATHAN MELCHOR JUAN MNAUEL Ot I25.10 ATHSCL HEART DISEASE OF [place] CORONARY 08/24/2017 NATHAN MELCHOR JUAN MANUEL Ot I26.99 OTHER PULMONARY EMBOLISM WITHOUT ACUTE C 08/24/2017 NATHAN MELCHOR JUAN MANUEL Ot I48.0 PAROXYSMAL ATRIAL FIBRILLATION 08/24/2017 NATHAN MELCHOR JUAN MANUEL Ot K21.9 GASTRO-ESOPHAGEAL REFLUX DISEASE WITHOUT 08/24/2017 NATHAN MELCHOR JUAN MANUEL Ot R09.02 HYPOXEMIA 08/24/2017 JAMILA EVANS DOI Ot Z86.71 8 PERSONAL HISTORY OF OTHER VENOUS THROMBO 08/24/2017 JAMILA EVANS DOI Ot Z87.89 1 PERSONAL HISTORY OF NICOTINE DEPENDENCE 08/24/2017 JUAN MANUEL EVANS DO Ot Z90.81 ACQUIRED ABSENCE OF SPLEEN 08/24/2017 JUAN MANUEL EVANS DO Ot Z98.1 ARTHRODESIS STATUS 08/24/2017 JUAN MANUEL EVANS DO Ot B18.2 CHRONIC VIRAL HEPATITIS C 08/24/2017 JUAN MANUEL EVANS DO Ot F32.9 MAJOR DEPRESSIVE DISORDER, SINGLE EPISOD 08/24/2017 JUAN MANUEL EVANS DO Ot F41.9 ANXIETY DISORDER, UNSPECIFIED 08/24/2017 NATHAN MELCHOR JUAN MANUEL Ot I25.10 ATHSCL HEART DISEASE OF [place] CORONARY 08/24/2017 NATHAN MELCHOR JUAN MANUEL Ot I26.99 OTHER PULMONARY EMBOLISM WITHOUT ACUTE C 08/24/2017 NATHAN MELCHOR JUAN MANUEL Ot I48.0 PAROXYSMAL ATRIAL FIBRILLATION 08/24/2017 JUAN MANUEL EVANS DO Ot K21.9 GASTRO-ESOPHAGEAL REFLUX DISEASE WITHOUT 08/24/2017 JAMILA EVANS DOI Ot R07.89 OTHER CHEST PAIN 08/24/2017 JUAN MANUEL EVANS DO Ot R09.02 HYPOXEMIA 08/24/2017 JUAN MANUEL EVANS DO Ot Z23 ENCOUNTER FOR IMMUNIZATION 08/24/2017 JUAN MANUEL EVANS DO Ot Z86.71 8 PERSONAL HISTORY OF OTHER VENOUS THROMBO 08/24/2017 JUAN MANUEL EVANS DO Ot Z87.89 1 PERSONAL HISTORY OF NICOTINE DEPENDENCE 08/24/2017 NATHAN MELCHOR JUAN MANUEL Ot Z90.81 ACQUIRED ABSENCE OF SPLEEN 08/24/2017 NATHAN MELCHOR JUAN MANUEL Ot Z98.1 ARTHRODESIS STATUS 09/01/2017 MAHI PANIAGUA DO Ot F41.9 ANXIETY DISORDER, UNSPECIFIED 09/01/2017 SIVA DO MAHI K Ot G43.909 MIGRAINE, UNSP, NOT INTRACTABLE, WITHOUT 09/01/2017 SIVA DO, MAHI K Ot I26.99 OTHER PULMONARY EMBOLISM WITHOUT ACUTE C 09/01/2017 SIVA DO MAHI K Ot I48.91 UNSPECIFIED ATRIAL FIBRILLATION 09/01/2017 INVERNESS DO MAHI K Ot K21.9 GASTRO-ESOPHAGEAL REFLUX DISEASE WITHOUT 09/01/2017 SIVA DO MAHI K Ot M47.9 SPONDYLOSIS, UNSPECIFIED 09/01/2017 SIVA DO MAHI K Ot M79.604 PAIN IN RIGHT LEG 09/01/2017 SIVA DO MAHI K Ot R25.2 CRAMP AND SPASM 09/01/2017 SIVA DOANILAA K Ot Z79.01 SENIOR CONTROLS ENGINEER (CURRENT) USE OF ANTICOAGULANT 09/01/2017 [facility] Ot Z79.82 SENIOR CONTROLS ENGINEER (CURRENT) USE OF ASPIRIN 09/01/2017 SIVA DOMAHI Ot Z86.14 PERSONAL HISTORY OF METHICILLIN RESIS ST 09/01/2017 SIVA ANILAA K Ot Z86.718 PERSONAL HISTORY OF OTHER VENOUS THROMBO 09/01/2017 SIVA MAHI K Ot Z87.891 PERSONAL HISTORY OF NICOTINE DEPENDENCE 09/08/2017 SIVA MELCHOR MAHI K Ot F41.9 ANXIETY DISORDER, UNSPECIFIED 09/08/2017 SIVA DO MAHI K Ot G43.909 MIGRAINE, UNSP, NOT INTRACTABLE, WITHOUT 09/08/2017 SIVA DO MAHI K Ot I26.99 OTHER PULMONARY EMBOLISM WITHOUT ACUTE C 09/08/2017 SIVA DO MAHI Syeda Ot I48.91 UNSPECIFIED ATRIAL FIBRILLATION 09/08/2017 SIVA DO MAHI K Ot K21.9 GASTRO-ESOPHAGEAL REFLUX DISEASE WITHOUT 09/08/2017 SIVA DO MAHI K Ot M47.9 SPONDYLOSIS, UNSPECIFIED 09/08/2017 SIVA DOANILAA K Ot M79.604 PAIN IN RIGHT LEG 09/08/2017 SIVA DO MAHI K Ot R25.2 CRAMP AND SPASM 09/08/2017 SIVA DOANILAA K Ot Z79.01 SKILLED NURSING (CURRENT) USE OF ANTICOAGULANT 09/08/2017 SIVA DOANILAA K Ot Z79.82 SKILLED NURSING (CURRENT) USE OF ASPIRIN 09/08/2017 MAHI PANIAGUA DO Ot Z86.14 PERSONAL HISTORY OF METHICILLIN RESIS ST 09/08/2017 MAHI PANIAGUA DO Ot Z86.718 PERSONAL HISTORY OF OTHER VENOUS THROMBO 09/08/2017 MAHI PANIAGUA DO Ot Z87.891 PERSONAL HISTORY OF NICOTINE DEPENDENCE 09/24/2017 NATHAN MELCHOR JUAN MANUEL Ot F32.9 MAJOR DEPRESSIVE DISORDER, SINGLE EPISOD 09/24/2017 JAMILA EVANS DOI Ot F41.9 ANXIETY DISORDER, UNSPECIFIED 09/24/2017 NATHAN MELCHOR JUAN MANUEL Ot G89.29 OTHER CHRONIC PAIN 09/24/2017 JAMILA EVANS DOI Ot I25.10 ATHSCL HEART DISEASE OF [place] CORONARY 09/24/2017 NATHAN MELCHOR JUAN MANUEL Ot I47.1 SUPRAVENTRICULAR TACHYCARDIA 09/24/2017 NATHAN MELCHOR JUAN MANUEL Ot I48.0 PAROXYSMAL ATRIAL FIBRILLATION 09/24/2017 NATHAN MELCHOR JUAN MANUEL Ot K21.9 GASTRO-ESOPHAGEAL REFLUX DISEASE WITHOUT 09/24/2017 JAMILA EVANS DOI Ot K59.09 OTHER CONSTIPATION 09/24/2017 NATHAN MELCHOR JUAN MANUEL Ot Z79.89 1 SENIOR CONTROLS ENGINEER (CURRENT) USE OF OPIATE ANALGE 09/24/2017 NATHAN MELCHOR JUAN MANUEL Ot Z79.89 9 OTHER SKILLED NURSING (CURRENT) DRUG THERAPY 09/24/2017 NATHAN MELCHOR JUAN MANUEL Ot Z86.71 1 PERSONAL HISTORY OF PULMONARY EMBOLISM 09/25/2017 MAHI [...] UNSPECIFIED 09/25/2017 MAHI PANIAGUA DO Ot Z79.02 SENIOR CONTROLS ENGINEER (CURRENT) USE OF ANTITHROMBOTI 09/25/2017 MAHI PANIAGUA DO Ot Z86.711 PERSONAL HISTORY OF PULMONARY EMBOLISM 09/25/2017 MAHI PANIAGUA DO Ot Z86.718 PERSONAL HISTORY OF OTHER VENOUS THROMBO 09/25/2017 MAHI PANIAGUA DO Ot Z87.19 PERSONAL HISTORY OF OTHER DISEASES OF TH 09/25/2017 MAHI PANIAGUA DO Ot Z87.891 PERSONAL HISTORY OF NICOTINE DEPENDENCE 09/25/2017 MHAI PANIAGUA DO Ot Z90.49 ACQUIRED ABSENCE OF OTHER SPECIFIED PART 09/27/2017 MAHI PANIAGUA DO Ot F41.9 ANXIETY DISORDER, UNSPECIFIED 09/27/2017 MAHI PANIAGUA DO Ot R07.89 OTHER CHEST PAIN 09/27/2017 MAHI PANIAGUA DO Ot R07.9 CHEST PAIN, UNSPECIFIED 11/16/2017 ERIKA DRAPER, JEOVANNY Mayo Ot B18. 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 2 CHRONIC VIRAL HEPATITIS C 07/05/2018 JEOVANNY JAMES MD P Ot B18. 2 CHRONIC VIRAL HEPATITIS C 08/03/2018 CARRINGTON GARAY Ot Z01.818 ENCOUNTER FOR OTHER PREPROCEDURAL EXAMIN 08/04/2018 CARRINGTON GARAY [facility] Ot Z01.818 ENCOUNTER FOR OTHER PREPROCEDURAL EXAMIN 08/05/2018 Champagne, Kymberly-Justice W 401.9 UNSPECIFIED ESSENTIAL HYPERTENSION 08/05/2018 Champagne, [employer]ymber[employer]-Justice W 427.0 PAROXYSMAL SUPRAVENTRICULAR TACHYCARDIA 08/05/2018 Champagne, [employer]ym[employer]-Justice W 427.31 ATRIAL FIBRILLATION 08/05/2018 Champagne, Kym[employer]-Justice W I10 ESSENTIAL (PRIMARY) HYPERTENSION 08/05/2018 Champagne, Kymber[employer]-Justice W I47.1 SUPRAVENTRICULAR TACHYCARDIA 08/05/2018, [employer] W I48.0 PAROXYSMAL ATRIAL FIBRILLATION 08/05/2018, [employer] W 401.9 UNSPECIFIED ESSENTIAL HYPERTENSION 08/05/2018, [employer] W 427.0 PAROXYSMAL SUPRAVENTRICULAR TACHYCARDIA 08/05/2018, [employer] W 427.31 ATRIAL FIBRILLATION 08/05/2018 Champagne, [employer]-Justice W I10 ESSENTIAL (PRIMARY) HYPERTENSION 08/05/2018, [employer] W I47.1 SUPRAVENTRICULAR TACHYCARDIA 08/05/2018, [employer] W I48.0 PAROXYSMAL ATRIAL FIBRILLATION 08/05/2018, [employer] W 401.9 UNSPECIFIED ESSENTIAL HYPERTENSION 08/05/2018, [employer] W 427.0 PAROXYSMAL SUPRAVENTRICULAR TACHYCARDIA 08/05/2018, [employer] W 427.31 ATRIAL FIBRILLATION 08/05/2018 Champagne, [employer] W I10 ESSENTIAL (PRIMARY) HYPERTENSION 08/05/2018 Champagne, [employer] W I47.1 SUPRAVENTRICULAR TACHYCARDIA 08/05/2018 Champagne, [employer] W I48.0 PAROXYSMAL ATRIAL FIBRILLATION 08/06/2018 Champagne, [employer] W 240.9 GOITER, UNSPECIFIED 08/06/2018, [place] W 272.4 08/06/2018, [facility] W 274.9 GOUT, UNSPECIFIED 08/06/2018 Champagne, [place] W 401.0 08/06/2018 Champagne, [place] W 401.9 UNSPECIFIED ESSENTIAL HYPERTENSION 08/06/2018 Champagne, [place] W 427.0 PAROXYSMAL SUPRAVENTRICULAR TACHYCARDIA 08/06/2018 Champagne, [place] A 427.31 ATRIAL FIBRILLATION 08/06/2018 Champagne, [place] W E04.9 NONTOXIC GOITER, UNSPECIFIED 08/06/2018 Champagne, [place] W E78.5 HYPERLIPIDEMIA, UNSPECIFIED 08/06/2018 Champagne, [place] W I10 ESSENTIAL (PRIMARY) HYPERTENSION 08/06/2018 Champagne, [place] W I47.1 SUPRAVENTRICULAR TACHYCARDIA 08/06/2018 Champagne, [place] A I48.0 PAROXYSMAL ATRIAL FIBRILLATION 08/06/2018 Champagne, [place] W M10.9 GOUT, UNSPECIFIED 08/06/2018 Champagne, [place] W 401.9 UNSPECIFIED ESSENTIAL HYPERTENSION 08/06/2018, [place] W 427.0 PAROXYSMAL SUPRAVENTRICULAR TACHYCARDIA 08/06/2018, [place] W 427.31 ATRIAL FIBRILLATION 08/06/2018 Champagne, [place] W I10 ESSENTIAL (PRIMARY) HYPERTENSION 08/06/2018 Champagne, [place] W I47.1 SUPRAVENTRICULAR TACHYCARDIA 08/06/2018, [place] W I48.0 PAROXYSMAL ATRIAL FIBRILLATION 08/06/2018 Champagne, [place] W 240.9 GOITER, UNSPECIFIED 08/06/2018 Champagne, [place] W 401.9 UNSPECIFIED ESSENTIAL HYPERTENSION 08/06/2018 Champagne, [place] W 427.0 PAROXYSMAL SUPRAVENTRICULAR TACHYCARDIA 08/06/2018, [place] W 427.31 ATRIAL FIBRILLATION 08/06/2018 Champagne, [place] W E04.9 NONTOXIC GOITER, UNSPECIFIED 08/06/2018 Champagne, [place] W I10 ESSENTIAL (PRIMARY) HYPERTENSION 08/06/2018 Champagne, [place] W I47.1 SUPRAVENTRICULAR TACHYCARDIA 08/06/2018 Champagne, [place] W I48.0 PAROXYSMAL ATRIAL FIBRILLATION 09/04/2018 CARRINGTON GARAY Ot Z29.8 ENCOUNTER FOR OTHER SPECIFIED PROPHYLACT 09/05/2018 EMILIE BANEGAS APRN Ot R94.6 ABNORMAL RESULTS OF THYROID FUNCTION MIKE 09/05/2018 GARAY, CARRINGTON M TOOL CHECKER Ot Z29.8 ENCOUNTER FOR OTHER SPECIFIED PROPHYLACT 09/16/2018 EMILIE BANEGAS ASSISTANT WOMEN'S SOCCER COACH Ot R94.6 ABNORMAL RESULTS OF THYROID FUNCTION MIKE 10/04/2018 JEOVANNY JAMES MD P Ot B18. 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 2 CHRONIC VIRAL HEPATITIS C 10/04/2018 EMILIE BANEGAS APRN Ot R94.6 ABNORMAL RESULTS OF THYROID FUNCTION MIKE 10/05/2018 JEOVANNY JAMES MD Ot B18. 2 CHRONIC VIRAL HEPATITIS C 10/05/2018 EMILIE BANEGAS ASSISTANT WOMEN'S SOCCER COACH Ot E03.8 OTHER SPECIFIED HYPOTHYROIDISM 10/05/2018 EMILIE BANEGAS ASSISTANT WOMEN'S SOCCER COACH Ot I1 0 ESSENTIAL (PRIMARY) HYPERTENSION 10/05/2018 EMILIE BANEGAS APRN [...] INTRACTABLE, WITHOUT 10/13/2018 NIC LÓPEZ MD Ot I1 0 ESSENTIAL (PRIMARY) HYPERTENSION 10/13/2018 NIC LÓPEZ MD Ot I21.A1 MYOCARDIAL INFARCTION TYPE 2 10/13/2018 NIC LÓPEZ MD Ot I25.10 ATHSCL HEART DISEASE OF [place] CORONARY 10/13/2018 NIC LÓPEZ MD Ot I48.0 PAROXYSMAL ATRIAL FIBRILLATION 10/13/2018 NIC LÓPEZ MD Ot K21.9 GASTRO-ESOPHAGEAL REFLUX DISEASE WITHOUT 10/13/2018 NIC LÓPEZ MD Ot K57.90 DVRTCLOS OF INTEST, PART UNSP, W/O PERF 10/13/2018 NIC LÓPEZ MD Ot K59.09 OTHER CONSTIPATION 10/13/2018 NIC LÓPEZ MD Ot K64.9 UNSPECIFIED HEMORRHOIDS 10/13/2018 NIC LÓPEZ MD Ot K75.9 INFLAMMATORY LIVER DISEASE, UNSPECIFIED 10/13/2018 NIC LÓPEZ MD Ot M19.91 PRIMARY OSTEOARTHRITIS, UNSPECIFIED SITE 10/13/2018 NIC LÓPEZ MD Ot M54.9 DORSALGIA, UNSPECIFIED 10/13/2018 NIC LÓPEZ MD Ot Z85.038 PERSONAL HISTORY OF MALIGNANT NEOPLASM O 10/13/2018 INC LÓPEZ MD Ot Z86.711 PERSONAL HISTORY OF PULMONARY EMBOLISM 10/13/2018 NIC LÓPEZ MD Ot Z86.718 PERSONAL HISTORY OF OTHER VENOUS THROMBO 10/13/2018 NIC LÓPEZ MD Ot Z87.891 PERSONAL HISTORY OF NICOTINE DEPENDENCE 10/13/2018 NIC LÓPEZ MD Ot Z90.81 ACQUIRED ABSENCE OF SPLEEN 10/13/2018 NIC LÓPEZ MD Ot Z98.1 ARTHRODESIS STATUS 11/24/2018 ERIKA DRAPER, JEOVANNY P Ot B18. 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 2 CHRONIC VIRAL HEPATITIS C 11/24/2018 EMILIE BANEGAS APRN Ot R94.6 ABNORMAL RESULTS OF THYROID FUNCTION MIKE 11/24/2018 JEOVANNY JAMES MD Ot B18. 2 CHRONIC VIRAL HEPATITIS C 11/24/2018 EMILIE BANEGAS APRN Ot E03.8 OTHER SPECIFIED HYPOTHYROIDISM 11/24/2018 EMILIE BANEGAS APRN Ot I1 0 ESSENTIAL (PRIMARY) HYPERTENSION 11/24/2018 EMILIE BANEGAS APRN Ot I48.0 PAROXYSMAL ATRIAL FIBRILLATION 11/24/2018 Ot R07.9 CHES T PAIN, UNSPECIFIED 11/24/2018 Ot R51 HEADACHE 11/24/2018 Ot Z79.01 ADAL G TERM (CURRENT) USE OF ANTICOAGULANT 11/24/2018 Ot Z86.711 PE RSONAL HISTORY OF PULMONARY EMBOLISM 11/25/2018 JEOVANNY JAMES MD Ot B18. 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 2 CHRONIC VIRAL HEPATITIS C 11/25/2018 EMILIE BANEGAS APRN Ot R94.6 ABNORMAL RESULTS OF THYROID FUNCTION MIKE 11/25/2018 JEOVANNY JAMSE MD Ot B18. 2 CHRONIC VIRAL HEPATITIS C 11/25/2018 MAKENZIE, EMILIE M ASSISTANT WOMEN'S SOCCER COACH Ot E03.8 OTHER SPECIFIED HYPOTHYROIDISM 11/25/2018 EMILIE BANEGAS ASSISTANT WOMEN'S SOCCER COACH Ot I1 0 ESSENTIAL (PRIMARY) HYPERTENSION 11/25/2018 EMILIE BANEGAS ASSISTANT WOMEN'S SOCCER COACH Ot I48.0 PAROXYSMAL ATRIAL FIBRILLATION 01/06/2019 POST DO, NELLY Ot R53.1 WEAKNESS 01/06/2019 POST DO, NELLY Ot Z95.5 PRESENCE OF CORONARY ANGIOPLASTY IMPLANT 01/10/2019 POST DO, NELLY Ot R53.1 WEAKNESS 01/10/2019 POST DO, NELLY Ot Z95.5 PRESENCE OF CORONARY ANGIOPLASTY IMPLANT 02/03/2019 Rick Doyle W 386.11 BENIGN PAROXYSMAL POSITIONAL VERTIGO 02/03/2019 Rick Doyle H81.13 BENIGN PAROXYSMAL VERTIGO, BILATERAL 03/01/2019 TERESA MENESES MD Ot B19. 20 UNSPECIFIED VIRAL HEPATITIS C WITHOUT HE 03/01/2019 TERESA MENESES MD Ot E03. 9 HYPOTHYROIDISM, UNSPECIFIED 03/01/2019 TERESA MENESES MD Ot F32. 9 MAJOR DEPRESSIVE DISORDER, SINGLE EPISOD 03/01/2019 TERESA MENESES MD Ot F41. 9 ANXIETY DISORDER, UNSPECIFIED 03/01/2019 TERESA MENESES MD Ot G43.909 MIGRAINE, UNSP, NOT INTRACTABLE, WITHOUT 03/01/2019 TERESA MENESES MD Ot I25. 10 ATHSCL HEART DISEASE OF [place] CORONARY 03/01/2019 TERESA MENESES MD Ot I48. 91 UNSPECIFIED ATRIAL FIBRILLATION 03/01/2019 TERESA MENESES MD Ot I48. 92 UNSPECIFIED ATRIAL FLUTTER 03/01/2019 TERESA MENESES MD Ot L03.114 CELLULITIS OF LEFT UPPER LIMB 03/01/2019 TERESA MENESES MD Ot Z82. 49 FAMILY HX OF [place] HEART DIS AND OTH DI 03/01/2019 TERESA MENESES MD Ot Z86.010 PERSONAL HISTORY OF COLONIC POLYPS 03/01/2019 TERESA MENESES MD Ot Z86.718 PERSONAL HISTORY OF OTHER VENOUS THROMBO 03/01/2019 TERESA MENESES MD Ot Z87.448 PERSONAL HISTORY OF OTHER DISEASES OF UR 03/01/2019 TERESA MENESES MD Ot Z87.891 PERSONAL HISTORY OF NICOTINE DEPENDENCE 03/01/2019 TERESA MENESES MD Ot Z90. 49 ACQUIRED ABSENCE OF OTHER SPECIFIED PART 03/01/2019 TERESA MENESES MD Ot Z90. 81 ACQUIRED ABSENCE OF SPLEEN 03/01/2019 MUNDO JUAREZ MD, Ot B19.20 UNSPECIFIED VIRAL HEPATITIS C WITHOUT HE 03/01/2019 MUNDO JUAREZ MD, Ot E03.9 HYPOTHYROIDISM, UNSPECIFIED 03/01/2019 MUNDO JUAREZ MD, Ot F32.9 MAJOR DEPRESSIVE DISORDER, SINGLE EPISOD 03/01/2019 MUNDO JUAREZ MD, Ot F41.9 ANXIETY DISORDER, UNSPECIFIED 03/01/2019 MUNDO JUAREZ MD, Ot G43.909 MIGRAINE, UNSP, NOT INTRACTABLE, WITHOUT 03/01/2019 MUNDO JUAREZ MD, Ot I25.10 ATHSCL HEART DISEASE OF [place] CORONARY 03/01/2019 MUNDO JUAREZ MD, Ot I48.91 UNSPECIFIED ATRIAL FIBRILLATION 03/01/2019 MUNDO JUAREZ MD, Ot I48.92 UNSPECIFIED ATRIAL FLUTTER 03/01/2019 MUNDO JUAREZ MD, Ot M79.89 OTHER SPECIFIED SOFT TISSUE DISORDERS 03/01/2019 MUNDO JUAREZ MD, Ot 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, ACCID 03/01/2019 MUNDO JUAREZ MD, Ot Z79.01 SENIOR CONTROLS ENGINEER (CURRENT) USE OF ANTICOAGULANT 03/01/2019 MUNDO JUAREZ MD, Ot Z82.49 FAMILY HX OF [place] HEART DIS AND OTH DI 03/01/2019 MUNDO JUAREZ MD, Ot Z86.010 PERSONAL HISTORY OF COLONIC POLYPS 03/01/2019 MUNDO JUAREZ MD, Ot Z86.711 PERSONAL HISTORY OF PULMONARY EMBOLISM 03/01/2019 MUNDO JUAREZ MD, Ot Z86.718 PERSONAL HISTORY OF OTHER VENOUS THROMBO 03/01/2019 MUNDO JUAREZ MD, Ot Z87.19 PERSONAL HISTORY OF OTHER DISEASES OF TH 03/01/2019 MUNDO JUAREZ MD, Ot Z87.448 PERSONAL HISTORY OF OTHER DISEASES OF UR 03/01/2019 MUNDO JUAREZ MD, Ot Z87.891 PERSONAL HISTORY OF NICOTINE DEPENDENCE 03/01/2019 MUNDO JUAREZ MD, Ot Z90.49 ACQUIRED ABSENCE OF OTHER SPECIFIED PART 03/01/2019 MUNDO JUAREZ MD, Ot Z90.81 ACQUIRED ABSENCE OF SPLEEN 03/01/2019 MUNDO JUAREZ MD, Ot Z98.1 ARTHRODESIS STATUS 03/01/2019 MUNDO JUAREZ MD, Ot Z98.890 OTHER SPECIFIED POSTPROCEDURAL STATES 03/03/2019 MUNDO JUAREZ MD, Ot B19.20 UNSPECIFIED VIRAL HEPATITIS C WITHOUT HE 03/03/2019 MUNDO JUAREZ MD, Ot E03.9 HYPOTHYROIDISM, UNSPECIFIED 03/03/2019 MUNDO JUAREZ MD, Ot F32.9 MAJOR DEPRESSIVE DISORDER, SINGLE EPISOD 03/03/2019 MUNDO JUAREZ MD, Ot F41.9 ANXIETY DISORDER, UNSPECIFIED 03/03/2019 MUNDO JUAREZ MD, Ot G43.909 MIGRAINE, UNSP, NOT INTRACTABLE, WITHOUT 03/03/2019 MUNDO JUAREZ MD, Ot I25.10 ATHSCL HEART DISEASE OF [place] CORONARY 03/03/2019 MUNDO JUAREZ MD, Ot I48.91 UNSPECIFIED ATRIAL FIBRILLATION 03/03/2019 MUNDO JUAREZ MD, Ot I48.92 UNSPECIFIED ATRIAL FLUTTER 03/03/2019 MUNDO JUAREZ MD, Ot M79.89 OTHER SPECIFIED SOFT TISSUE DISORDERS 03/03/2019 MUNDO JUAREZ MD, Ot 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, ACCID 03/03/2019 MUNDO JUAREZ MD, Ot Z79.01 SKILLED NURSING (CURRENT) USE OF ANTICOAGULANT 03/03/2019 MUNDO JUAREZ MD, Ot Z82.49 FAMILY HX OF [place] HEART DIS AND OTH DI 03/03/2019 MUNDO JUAREZ MD, Ot Z86.010 PERSONAL HISTORY OF COLONIC POLYPS 03/03/2019 MUNDO JUAREZ MD, Ot Z86.711 PERSONAL HISTORY OF PULMONARY EMBOLISM 03/03/2019 MUNDO JUAREZ MD Ot Z86.718 PERSONAL HISTORY OF OTHER VENOUS THROMBO 03/03/2019 MUNDO JUAREZ MD Ot Z87.19 PERSONAL HISTORY OF OTHER DISEASES OF TH 03/03/2019 MUNDO JUAREZ MD Ot Z87.448 PERSONAL HISTORY OF OTHER DISEASES OF UR 03/03/2019 MUNDO JUAREZ MD Ot Z87.891 PERSONAL HISTORY OF NICOTINE DEPENDENCE 03/03/2019 MUNDO JUAREZ MD Ot Z90.49 ACQUIRED ABSENCE OF OTHER SPECIFIED PART 03/03/2019 MUNDO JUAREZ MD Ot Z90.81 ACQUIRED ABSENCE OF SPLEEN 03/03/2019 MUNDO JUAREZ MD Ot Z98.1 ARTHRODESIS STATUS 03/03/2019 MUNDO JUAREZ MD Ot Z98.890 OTHER SPECIFIED POSTPROCEDURAL STATES 03/03/2019 TERESA MENESES MD Ot B19. 20 UNSPECIFIED VIRAL HEPATITIS C WITHOUT HE 03/03/2019 TERESA MENESES MD Ot E03. 9 HYPOTHYROIDISM, UNSPECIFIED 03/03/2019 TERESA MENESES MD Ot F32. 9 MAJOR DEPRESSIVE DISORDER, SINGLE EPISOD 03/03/2019 TERESA MENESES MD Ot F41. 9 ANXIETY DISORDER, UNSPECIFIED 03/03/2019 TERESA MENESES MD Ot G43.909 MIGRAINE, UNSP, NOT INTRACTABLE, WITHOUT 03/03/2019 TERESA MENESES MD Ot I25. 10 ATHSCL HEART DISEASE OF [place] CORONARY 03/03/2019 TERESA MENESES MD Ot I48. 91 UNSPECIFIED ATRIAL FIBRILLATION 03/03/2019 TERESA MENESES MD Ot I48. 92 UNSPECIFIED ATRIAL FLUTTER 03/03/2019 TERESA MENESES MD Ot L03.114 CELLULITIS OF LEFT UPPER LIMB 03/03/2019 TERESA MENESES MD Ot Z82. 49 FAMILY HX OF [place] HEART DIS AND OTH DI 03/03/2019 TERESA MENESES MD Ot Z86.010 PERSONAL HISTORY OF COLONIC POLYPS 03/03/2019 TERESA MENESES MD Ot Z86.718 PERSONAL HISTORY OF OTHER VENOUS THROMBO 03/03/2019 TERESA MENESES MD Ot Z87.448 PERSONAL HISTORY OF OTHER DISEASES OF UR 03/03/2019 TERESA MENESES MD Ot Z87.891 PERSONAL HISTORY OF NICOTINE DEPENDENCE 03/03/2019 TERESA MENESES MD Ot Z90. 49 ACQUIRED ABSENCE OF OTHER SPECIFIED PART 03/03/2019 TERESA MENESES MD Ot Z90. 81 ACQUIRED ABSENCE OF SPLEEN 03/03/2019 TERESA MENESES MD Ot B19. 20 UNSPECIFIED VIRAL HEPATITIS C WITHOUT HE 03/03/2019 TERESA MENESES MD Ot E03. 9 HYPOTHYROIDISM, UNSPECIFIED 03/03/2019 TERESA MENESES MD Ot F32. 9 MAJOR DEPRESSIVE DISORDER, SINGLE EPISOD 03/03/2019 TERESA MENESES MD Ot F41. 9 ANXIETY DISORDER, UNSPECIFIED 03/03/2019 TERESA MENESES MD Ot G43.909 MIGRAINE, UNSP, NOT INTRACTABLE, WITHOUT 03/03/2019 TERESA MENESES MD Ot I25. 10 ATHSCL HEART DISEASE OF [place] CORONARY 03/03/2019 TERESA MENESES MD Ot I48. 91 UNSPECIFIED ATRIAL FIBRILLATION 03/03/2019 TERESA MENESES MD Ot I48. 92 UNSPECIFIED ATRIAL FLUTTER 03/03/2019 TERESA MENESES MD Ot L03.114 CELLULITIS OF LEFT UPPER LIMB 03/03/2019 TERESA MENESES MD Ot Z82. 49 FAMILY HX OF [place] HEART DIS AND OTH DI 03/03/2019 TERESA MENESES MD Ot Z86.010 PERSONAL HISTORY OF COLONIC POLYPS 03/03/2019 TERESA MENESES MD Ot Z86.718 PERSONAL HISTORY OF OTHER VENOUS THROMBO 03/03/2019 TERESA MENESES MD Ot Z87.448 PERSONAL HISTORY OF OTHER DISEASES OF UR 03/03/2019 TERESA MENESES MD Ot Z87.891 PERSONAL HISTORY OF NICOTINE DEPENDENCE 03/03/2019 TERESA MENESES MD Ot Z90. 49 ACQUIRED ABSENCE OF OTHER SPECIFIED PART 03/03/2019 TERESA MENESES MD Ot Z90. 81 ACQUIRED ABSENCE OF SPLEEN 03/09/2019 ERIKA DRAPER, JEOVANNY Mayo Ot B18. 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 2 CHRONIC VIRAL HEPATITIS C 03/09/2019 EMILIE BANEGAS APRN Ot R94.6 ABNORMAL RESULTS OF THYROID FUNCTION MIKE 03/09/2019 ERIKA DRAPER, JEOVANNY P Ot B18. 2 CHRONIC VIRAL HEPATITIS C 03/09/2019 EMILIE BANEGAS ASSISTANT WOMEN'S SOCCER COACH Ot E03.8 OTHER SPECIFIED HYPOTHYROIDISM 03/09/2019 EMILIE BANEGAS ASSISTANT WOMEN'S SOCCER COACH Ot I1 0 ESSENTIAL (PRIMARY) HYPERTENSION 03/09/2019 EMILIE BANEGAS ASSISTANT WOMEN'S SOCCER COACH Ot I48.0 PAROXYSMAL ATRIAL FIBRILLATION 03/09/2019 NELLY POST DO Ot E03.9 HYPOTHYROIDISM, UNSPECIFIED 03/09/2019 NELLY POST DO Ot F32.9 MAJOR DEPRESSIVE DISORDER, SINGLE EPISOD 03/09/2019 NELLY POST DO, Ot F41.9 ANXIETY DISORDER, UNSPECIFIED 03/09/2019 NELLY POST DO Ot G43.909 MIGRAINE, UNSP, NOT INTRACTABLE, WITHOUT 03/09/2019 NELLY POST DO Ot I25.10 ATHSCL HEART DISEASE OF [place] CORONARY 03/09/2019 NELLY POST DO Ot I48.91 UNSPECIFIED ATRIAL FIBRILLATION 03/09/2019 NELLY POST DO Ot I48.92 UNSPECIFIED ATRIAL FLUTTER 03/09/2019 NELLY POST DO Ot R00.0 TACHYCARDIA, UNSPECIFIED 03/09/2019 NELLY POST DO Ot Z79.01 SENIOR CONTROLS ENGINEER (CURRENT) USE OF ANTICOAGULANT 03/09/2019 NELLY POST DO Ot Z82.49 FAMILY HX OF [place] HEART DIS AND OTH DI 03/09/2019 NELLY POST DO Ot Z85.00 PERSONAL HISTORY OF MALIGNANT NEOPLASM O 03/09/2019 DUNNELL DO, NELLY Ot Z86.010 PERSONAL HISTORY OF COLONIC POLYPS 03/09/2019 DUNNELL DO, NELLY Ot Z86.711 PERSONAL HISTORY OF PULMONARY EMBOLISM 03/09/2019 DUNNELL DO, NELLY Ot Z86.718 PERSONAL HISTORY OF OTHER VENOUS THROMBO 03/09/2019 DUNNELL DO, NELLY Ot Z87.19 PERSONAL HISTORY OF OTHER DISEASES OF 03/09/2019 DUNNELL DO, NELLY Ot Z87.891 PERSONAL HISTORY OF NICOTINE DEPENDENCE 03/09/2019 DUNNELL DO, NELLY Ot Z90.49 ACQUIRED ABSENCE OF OTHER SPECIFIED PART 03/10/2019 DUNNELL DO, NELLY Ot E03.9 HYPOTHYROIDISM, UNSPECIFIED 03/10/2019 DUNNELL DO, NELLY Ot F32.9 MAJOR DEPRESSIVE DISORDER, SINGLE EPISOD 03/10/2019 DUNNELL DO, NELLY Ot F41.9 ANXIETY DISORDER, UNSPECIFIED 03/10/2019 DUNNELL DO, NELLY Ot G43.909 MIGRAINE, UNSP, NOT INTRACTABLE, WITHOUT 03/10/2019 DUNNELL DO, NELLY Ot I25.10 ATHSCL HEART DISEASE OF [place] CORONARY 03/10/2019 DUNNELL DO, NELLY Ot I48.91 UNSPECIFIED ATRIAL FIBRILLATION 03/10/2019 DUNNELL DO, NELLY Ot I48.92 UNSPECIFIED ATRIAL FLUTTER 03/10/2019 DUNNELL DO, NELLY Ot R00.0 TACHYCARDIA, UNSPECIFIED 03/10/2019 DUNNELL DO, NELLY Ot Z79.01 SKILLED NURSING (CURRENT) USE OF ANTICOAGULANT 03/10/2019 DUNNELL DO, NELLY Ot Z82.49 FAMILY HX OF [place] HEART DIS AND OTH DI 03/10/2019 DUNNELL DO, NELLY Ot Z85.00 PERSONAL HISTORY OF MALIGNANT NEOPLASM O 03/10/2019 DUNNELL DO, NELLY Ot Z86.010 PERSONAL HISTORY OF COLONIC POLYPS 03/10/2019 DUNNELL DO, NELLY Ot Z86.711 PERSONAL HISTORY OF PULMONARY EMBOLISM 03/10/2019 DUNNELL DO, NELLY Ot Z86.718 PERSONAL HISTORY OF OTHER VENOUS THROMBO 03/10/2019 DUNNELL DO, NELLY Ot Z87.19 PERSONAL HISTORY OF OTHER DISEASES OF 03/10/2019 POST DO, NELLY Ot Z87.891 PERSONAL HISTORY OF NICOTINE DEPENDENCE 03/10/2019 DUNNELL DO, NELLY Ot Z90.49 ACQUIRED ABSENCE OF OTHER SPECIFIED PART 03/10/2019 DUNNELL DO, NELLY Ot E03.9 HYPOTHYROIDISM, UNSPECIFIED 03/10/2019 DUNNELL DO, NELLY Ot F32.9 MAJOR DEPRESSIVE DISORDER, SINGLE EPISOD 03/10/2019 POST DO, NELLY Ot F41.9 ANXIETY DISORDER, UNSPECIFIED 03/10/2019 POST DO, NELLY Ot G43.909 MIGRAINE, UNSP, NOT INTRACTABLE, WITHOUT 03/10/2019 POST DO, NELLY Ot I25.10 ATHSCL HEART DISEASE OF [place] CORONARY 03/10/2019 POST DO, NELLY Ot I48.91 UNSPECIFIED ATRIAL FIBRILLATION 03/10/2019 POST DO, NELLY Ot I48.92 UNSPECIFIED ATRIAL FLUTTER 03/10/2019 POST DO, NELLY Ot R00.0 TACHYCARDIA, UNSPECIFIED 03/10/2019 POST DO, NELLY Ot Z79.01 SENIOR CONTROLS ENGINEER (CURRENT) USE OF ANTICOAGULANT 03/10/2019 POST DO, NELLY Ot Z82.49 FAMILY HX OF [place] HEART DIS AND OTH DI 03/10/2019 POST DO, NELLY Ot Z85.00 PERSONAL HISTORY OF MALIGNANT NEOPLASM O 03/10/2019 POST DO, NELLY Ot Z86.010 PERSONAL HISTORY OF COLONIC POLYPS 03/10/2019 POST DO, NELLY Ot Z86.711 PERSONAL HISTORY OF PULMONARY EMBOLISM 03/10/2019 POST DO, NELLY Ot Z86.718 PERSONAL HISTORY OF OTHER VENOUS THROMBO 03/10/2019 POST DO, NELLY Ot Z87.19 PERSONAL HISTORY OF OTHER DISEASES OF TH 03/10/2019 SEJAL DO, NELLY Ot Z87.891 PERSONAL HISTORY OF NICOTINE DEPENDENCE 03/10/2019 POST DO, NELLY Ot Z90.49 ACQUIRED ABSENCE OF OTHER SPECIFIED PART 03/13/2019 POST DO, NELLY Ot B19.20 UNSPECIFIED VIRAL HEPATITIS C WITHOUT HE 03/13/2019 SEJAL DO, NELLY Ot E03.9 HYPOTHYROIDISM, UNSPECIFIED 03/13/2019 POST DO, NELLY Ot F32.9 MAJOR DEPRESSIVE DISORDER, SINGLE EPISOD 03/13/2019 POST DO, NELLY Ot F41.9 ANXIETY DISORDER, UNSPECIFIED 03/13/2019 POST DO, NELLY Ot G43.909 MIGRAINE, UNSP, NOT INTRACTABLE, WITHOUT 03/13/2019 SEJAL DO, NELLY Ot I25.10 ATHSCL HEART DISEASE OF [place] CORONARY 03/13/2019 POST DO, NELLY Ot I48.91 UNSPECIFIED ATRIAL FIBRILLATION 03/13/2019 POST DO, NELLY Ot I48.92 UNSPECIFIED ATRIAL FLUTTER 03/13/2019 POST DO, NELLY Ot R00.0 TACHYCARDIA, UNSPECIFIED 03/13/2019 DUNNELL DO, NELLY Ot Z79.01 SKILLED NURSING (CURRENT) USE OF ANTICOAGULANT 03/13/2019 DUNNELL DO, NELLY Ot Z82.49 FAMILY HX OF ISCHE[place] HEART DIS AND OTH DI 03/13/2019 DUNNELL DO, NELLY Ot Z85.00 PERSONAL HISTORY OF MALIGNANT NEOPLASM O 03/13/2019 DUNNELL DO, NELLY Ot Z86.010 PERSONAL HISTORY OF COLONIC POLYPS 03/13/2019 DUNNELL DO, NELLY Ot Z86.711 PERSONAL HISTORY OF PULMONARY EMBOLISM 03/13/2019 DUNNELL DO, NELLY Ot Z86.718 PERSONAL HISTORY OF OTHER VENOUS THROMBO 03/13/2019 DUNNELL DO, NELLY Ot Z87.19 PERSONAL HISTORY OF OTHER DISEASES OF TH 03/13/2019 DUNNELL DO, NELLY Ot Z87.891 PERSONAL HISTORY OF NICOTINE DEPENDENCE 03/13/2019 DUNNELL DO, NELLY Ot Z90.49 ACQUIRED ABSENCE OF OTHER SPECIFIED PART 03/15/2019 DUNNELL DO, NELLY Ot B19.20 UNSPECIFIED VIRAL HEPATITIS C WITHOUT HE 03/15/2019 DUNNELL DO, NELLY Ot E03.9 HYPOTHYROIDISM, UNSPECIFIED 03/15/2019 DUNNELL DO, NELLY Ot F32.9 MAJOR DEPRESSIVE DISORDER, SINGLE EPISOD 03/15/2019 DUNNELL DO, NELLY Ot F41.9 ANXIETY DISORDER, UNSPECIFIED 03/15/2019 DUNNELL DO, NELLY Ot G43.909 MIGRAINE, UNSP, NOT INTRACTABLE, WITHOUT 03/15/2019 DUNNELL DO, NELLY Ot I25.10 ATHSCL HEART DISEASE OF [place] CORONARY 03/15/2019 DUNNELL DO, NELLY Ot I48.91 UNSPECIFIED ATRIAL FIBRILLATION 03/15/2019 DUNNELL DO, NELLY Ot I48.92 UNSPECIFIED ATRIAL FLUTTER 03/15/2019 DUNNELL DO, NELLY Ot R00.0 TACHYCARDIA, UNSPECIFIED 03/15/2019 DUNNELL DO, NELLY Ot Z79.01 SKILLED NURSING (CURRENT) USE OF ANTICOAGULANT 03/15/2019 DUNNELL DO, NELLY Ot Z82.49 FAMILY HX OF [place] HEART DIS AND OTH DI 03/15/2019 DUNNELL DO, NELLY Ot Z85.00 PERSONAL HISTORY OF MALIGNANT NEOPLASM O 03/15/2019 DUNNELL DO, NELLY Ot Z86.010 PERSONAL HISTORY OF COLONIC POLYPS 03/15/2019 DUNNELL DO, NELLY Ot Z86.711 PERSONAL HISTORY OF PULMONARY EMBOLISM 03/15/2019 DUNNELL DO, NELLY Ot Z86.718 PERSONAL HISTORY OF OTHER VENOUS THROMBO 03/15/2019 NELLY POST DO, Ot Z87.19 PERSONAL HISTORY OF OTHER DISEASES OF TH 03/15/2019 NELLY POST DO, Ot Z87.891 PERSONAL HISTORY OF NICOTINE DEPENDENCE 03/15/2019 NELLY POST DO, Ot Z90.49 ACQUIRED ABSENCE OF OTHER SPECIFIED PART 03/20/2019 Rick Doyle W 785.0 TACHYCARDIA, UNSPECIFIED 03/20/2019 HeriRick rosa W R00.0 TACHYCARDIA, UNSPECIFIED 04/10/2019 JOSE TAVERAS DO, Ot B19.20 UNSPECIFIED VIRAL HEPATITIS C WITHOUT HE 04/10/2019 JOSE TAVERAS DO, Ot E03.9 HYPOTHYROIDISM, UNSPECIFIED 04/10/2019 JOSE TAVERAS DO, Ot F32.9 MAJOR DEPRESSIVE DISORDER, SINGLE EPISOD 04/10/2019 JOSE TAVERAS DO, Ot F41.9 ANXIETY DISORDER, UNSPECIFIED 04/10/2019 JOSE TAVERAS DO, Ot G43.909 MIGRAINE, UNSP, NOT INTRACTABLE, WITHOUT 04/10/2019 JOSE TAVERAS DO, Ot I25.10 ATHSCL HEART DISEASE OF [place] CORONARY 04/10/2019 JOSE TAVERAS DO, Ot I25.2 OLD MYOCARDIAL INFARCTION 04/10/2019 JOSE TAVERAS DO, Ot I48.91 UNSPECIFIED ATRIAL FIBRILLATION 04/10/2019 JOSE TAVERAS DO, Ot I48.92 UNSPECIFIED ATRIAL FLUTTER 04/10/2019 JOSE TAVERAS DO, Ot R07.2 PRECORDIAL PAIN 04/10/2019 JOSE TAVERAS DO, Ot R07.89 OTHER CHEST PAIN 04/10/2019 JOSE TAVERAS DO, Ot Z77.22 CNTCT W AND EXPSR TO ENVIRON TOBACCO SMO 04/10/2019 JOSE TAVERAS DO, Ot Z82.49 FAMILY HX OF I[place]HE[place] HEART DIS AND OTH DI 04/10/2019 JOSE TAVERAS DO, Ot Z86.711 PERSONAL HISTORY OF PULMONARY EMBOLISM 04/10/2019 JOSE TAVERAS DO, Ot Z86.718 PERSONAL HISTORY OF OTHER VENOUS THROMBO 04/10/2019 JOSE TAVERAS DO, Ot Z87.19 PERSONAL HISTORY OF OTHER DISEASES OF 04/10/2019 JOSE TAVERAS DO, Ot Z90.49 ACQUIRED ABSENCE OF OTHER SPECIFIED PART 04/10/2019 JOSE TAVERAS DO, Ot Z95.9 PRESENCE OF CARDIAC AND VASCULAR IMPLANT 04/10/2019 JOSE TAVERAS DO Ot Z98.1 ARTHRODESIS STATUS 04/10/2019 JOSE TAVERAS DO Ot Z98.2 PRESENCE OF CEREBROSPINAL FLUID DRAINAGE 04/14/2019 TERESA MENESES MD Ot B19. 20 UNSPECIFIED VIRAL HEPATITIS C WITHOUT HE 04/14/2019 TERESA MENEESS MD Ot E03. 9 HYPOTHYROIDISM, UNSPECIFIED 04/14/2019 TERESA MENESES MD Ot F32. 9 MAJOR DEPRESSIVE DISORDER, SINGLE EPISOD 04/14/2019 TERESA MENESES MD Ot F41. 9 ANXIETY DISORDER, UNSPECIFIED 04/14/2019 TERESA MENESES MD Ot G43.909 MIGRAINE, UNSP, NOT INTRACTABLE, WITHOUT 04/14/2019 TERESA MENESES MD Ot I25. 10 ATHSCL HEART DISEASE OF [place] CORONARY 04/14/2019 TERESA MENESES MD Ot I48. 91 UNSPECIFIED ATRIAL FIBRILLATION 04/14/2019 TERESA MENESES MD Ot I48. 92 UNSPECIFIED ATRIAL FLUTTER 04/14/2019 TERESA MENESES MD Ot L03.114 CELLULITIS OF LEFT UPPER LIMB 04/14/2019 TERESA MENESES MD Ot Z82. 49 FAMILY HX OF [facility] 04/14/2019 TERESA MENESES MD Ot Z86.010 PERSONAL HISTORY OF COLONIC POLYPS 04/14/2019 TERESA MENESES MD Ot Z86.718 PERSONAL HISTORY OF OTHER VENOUS THROMBO 04/14/2019 TERESA MENESES MD Ot Z87.448 PERSONAL HISTORY OF OTHER DISEASES OF UR 04/14/2019 TERESA MENESES MD Ot Z87.891 PERSONAL HISTORY OF NICOTINE DEPENDENCE 04/14/2019 TERESA MENESES MD Ot Z90. 49 ACQUIRED ABSENCE OF OTHER SPECIFIED PART 04/14/2019 TERESA MENESES MD Ot Z90. 81 ACQUIRED ABSENCE OF SPLEEN 04/17/2019 JOSE TAVERAS DO Ot B19.20 UNSPECIFIED VIRAL HEPATITIS C WITHOUT HE 04/17/2019 JOSE TAVERAS DO Ot E03.9 HYPOTHYROIDISM, UNSPECIFIED 04/17/2019 JOSE TAVERAS DO Ot F32.9 MAJOR DEPRESSIVE DISORDER, SINGLE EPISOD 04/17/2019 JOSE TAVERAS DO Ot F41.9 ANXIETY DISORDER, UNSPECIFIED 04/17/2019 JOSE TAVERAS DO, Ot G43.909 MIGRAINE, UNSP, NOT INTRACTABLE, WITHOUT 04/17/2019 JOSE TAVERAS DO, Ot I25.10 ATHSCL HEART DISEASE OF [place] CORONARY 04/17/2019 JOSE TAVERAS DO, Ot I25.2 OLD MYOCARDIAL INFARCTION 04/17/2019 JOSE TAVERAS DO, Ot I48.91 UNSPECIFIED ATRIAL FIBRILLATION 04/17/2019 JOSE TAVERAS DO, Ot I48.92 UNSPECIFIED ATRIAL FLUTTER 04/17/2019 JOSE TAVERAS DO, Ot R07.2 PRECORDIAL PAIN 04/17/2019 JOSE TAVERAS DO, Ot R07.89 OTHER CHEST PAIN 04/17/2019 JOSE TAVERAS DO, Ot Z77.22 CNTCT W AND EXPSR TO ENVIRON TOBACCO SMO 04/17/2019 JOSE TAVERAS DO, Ot Z82.49 FAMILY HX OF [facility] 04/17/2019 JOSE TVAERAS DO, Ot Z86.711 PERSONAL HISTORY OF PULMONARY EMBOLISM 04/17/2019 JOSE TAVERAS DO, Ot Z86.718 PERSONAL HISTORY OF OTHER VENOUS THROMBO 04/17/2019 JOSE TAVERAS DO, Ot Z87.19 PERSONAL HISTORY OF OTHER DISEASES OF TH 04/17/2019 JOSE TAVERAS DO, Ot Z90.49 ACQUIRED ABSENCE OF OTHER SPECIFIED PART 04/17/2019 JOSE TAVERAS DO, Ot Z95.9 PRESENCE OF CARDIAC AND VASCULAR IMPLANT 04/17/2019 JOSE TAVERAS DO, Ot Z98.1 ARTHRODESIS STATUS 04/17/2019 JOSE TAVERAS DO, Ot Z98.2 PRESENCE OF CEREBROSPINAL FLUID DRAINAGE 04/20/2019 TERESA MENESES MD Ot B19. 20 UNSPECIFIED VIRAL HEPATITIS C WITHOUT HE 04/20/2019 TERESA MENESES MD Ot E03. 9 HYPOTHYROIDISM, UNSPECIFIED 04/20/2019 TERESA MENESES MD Ot F32. 9 MAJOR DEPRESSIVE DISORDER, SINGLE EPISOD 04/20/2019 TERESA MENESES MD Ot F41. 9 ANXIETY DISORDER, UNSPECIFIED 04/20/2019 TERESA MENESES MD Ot G43.909 MIGRAINE, UNSP, NOT INTRACTABLE, WITHOUT 04/20/2019 TERESA MENESES MD Ot I25. 10 ATHSCL HEART DISEASE OF [place] CORONARY 04/20/2019 TERESA MENESES MD Ot I48. 91 UNSPECIFIED ATRIAL FIBRILLATION 04/20/2019 TERESA MENESES MD Ot I48. 92 UNSPECIFIED ATRIAL FLUTTER 04/20/2019 TERESA MENESES MD Ot L03.114 CELLULITIS OF LEFT UPPER LIMB 04/20/2019 TERESA MENESES MD Ot Z82. 49 FAMILY HX OF [facility] 04/20/2019 TERESA MENESES MD Ot Z86.010 PERSONAL HISTORY OF COLONIC POLYPS 04/20/2019 TERESA MENESES MD Ot Z86.718 PERSONAL HISTORY OF OTHER VENOUS THROMBO 04/20/2019 TERESA MENESES MD Ot Z87.448 PERSONAL HISTORY OF OTHER DISEASES OF UR 04/20/2019 TEERSA MENESES MD, Ot Z87.891 PERSONAL HISTORY OF NICOTINE DEPENDENCE 04/20/2019 TERESA MENESES MD Ot Z90. 49 ACQUIRED ABSENCE OF OTHER SPECIFIED PART 04/20/2019 TERESA MENESES MD Ot Z90. 81 ACQUIRED ABSENCE OF SPLEEN 05/19/2019 LEISURE, LORENAA W 780.4 DIZZINESS AND GIDDINESS 05/19/2019 LEISURE, LYNIETA W R42 DIZZINESS AND GIDDINESS 05/27/2019 Rick Doyle W 466.0 ACUTE BRONCHITIS 05/27/2019 Rick Doyle W 788.1 DYSURIA 05/27/2019 Rick Doyle W J20.9 ACUTE BRONCHITIS, UNSPECIFIED 05/27/2019 Rick Doyle W R30.0 DYSURIA 06/02/2019 NELLY POST DO Ot B19.20 UNSPECIFIED VIRAL HEPATITIS C WITHOUT HE 06/02/2019 NELLY POST DO Ot E03.9 HYPOTHYROIDISM, UNSPECIFIED 06/02/2019 NELLY POST DO Ot F32.9 MAJOR DEPRESSIVE DISORDER, SINGLE EPISOD 06/02/2019 NELLY POST DO, Ot F41.9 ANXIETY DISORDER, UNSPECIFIED 06/02/2019 NELLY POST DO, Ot G43.909 MIGRAINE, UNSP, NOT INTRACTABLE, WITHOUT 06/02/2019 NELLY POST DO, Ot I25.10 ATHSCL HEART DISEASE OF [place] CORONARY 06/02/2019 NELLY POST DO Ot I48.91 UNSPECIFIED ATRIAL FIBRILLATION 06/02/2019 NELLY POST DO, Ot I48.92 UNSPECIFIED ATRIAL FLUTTER 06/02/2019 POST DO, NELLY Ot I50.9 HEART FAILURE, UNSPECIFIED 06/02/2019 POST DO, NELLY Ot R07.9 CHEST PAIN, UNSPECIFIED 06/02/2019 DUNNELL DO, NELLY Ot R79.89 OTHER SPECIFIED ABNORMAL FINDINGS OF BLO 06/02/2019 SEJAL DO, NELLY Ot Z82.49 FAMILY HX OF [facility] 06/02/2019 POST DO, NELLY Ot Z86.010 PERSONAL HISTORY OF COLONIC POLYPS 06/02/2019 POST DO, NELLY Ot Z86.711 PERSONAL HISTORY OF PULMONARY EMBOLISM 06/02/2019 [facility], NELLY Ot Z86.718 PERSONAL HISTORY OF OTHER VENOUS THROMBO 06/02/2019 [facility], NELLY Ot Z87.891 PERSONAL HISTORY OF NICOTINE DEPENDENCE 06/02/2019 [facility], NELLY Ot Z90.49 ACQUIRED ABSENCE OF OTHER SPECIFIED PART 10/10/2019 Rick Doyle 784.0 HEADACHE 10/10/2019 Rick Doyle 786.2 COUGH 10/10/2019 Rick Doyle 790.8 UNSPECIFIED VIREMIA 10/10/2019 Rick Doyle B34.9 VIRAL INFECTION, UNSPECIFIED 10/10/2019 Rick Doyle E04.9 NONTOXIC GOITER, UNSPECIFIED 10/10/2019 Rick Doyle E78.5 HYPERLIPIDEMIA, UNSPECIFIED 10/10/2019 Rick Doyle F41.9 ANXIETY DISORDER, UNSPECIFIED 10/10/2019 Rick Doyle H81.13 BENIGN PAROXYSMAL VERTIGO, BILATERAL 10/10/2019 Rick Doyle I10 ESSENTIAL (PRIMARY) HYPERTENSION 10/10/2019 Rick Doyle I47.1 SUPRAVENTRICULAR TACHYCARDIA 10/10/2019 Rick Doyle I48.0 PAROXYSMAL ATRIAL FIBRILLATION 10/10/2019 Rick Doyle J20.9 ACUTE BRONCHITIS, UNSPECIFIED 10/10/2019 Rick Doyle 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 20 UNSPECIFIED VIRAL HEPATITIS C WITHOUT HE 10/21/2019 TERESA MENESES MD Ot E03. 9 HYPOTHYROIDISM, UNSPECIFIED 10/21/2019 TERESA MENESES MD Ot F32. 9 MAJOR DEPRESSIVE DISORDER, SINGLE EPISOD 10/21/2019 TERESA MENESES MD Ot F41. 9 ANXIETY DISORDER, UNSPECIFIED 10/21/2019 TERESA MENESES MD Ot G43.909 MIGRAINE, UNSP, NOT INTRACTABLE, WITHOUT 10/21/2019 TERESA MENSEES MD Ot I25. 10 ATHSCL HEART DISEASE OF [place] CORONARY 10/21/2019 TERESA MENESES MD Ot I48. 91 UNSPECIFIED ATRIAL FIBRILLATION 10/21/2019 TERESA MENESES MD Ot I48. 92 UNSPECIFIED ATRIAL FLUTTER 10/21/2019 TERESA MENESES MD Ot L03.114 CELLULITIS OF LEFT UPPER LIMB 10/21/2019 TERESA MENESES MD Ot Z82. 49 FAMILY HX OF [facility] DI 10/21/2019 TERESA MENESES MD, Ot Z86.010 PERSONAL HISTORY OF COLONIC POLYPS 10/21/2019 TERESA MENESES MD Ot Z86.718 PERSONAL HISTORY OF OTHER VENOUS THROMBO 10/21/2019 TERESA MENESES MD Ot Z87.448 PERSONAL HISTORY OF OTHER DISEASES OF UR 10/21/2019 TERESA MENESES MD Ot Z87.891 PERSONAL HISTORY OF NICOTINE DEPENDENCE 10/21/2019 TERESA MENESES MD Ot Z90. 49 ACQUIRED ABSENCE OF OTHER SPECIFIED PART 10/21/2019 TERESA MENESES MD Ot Z90. 81 ACQUIRED ABSENCE OF SPLEEN 11/11/2019 CARRINGTON GARAY Ot Z01.818 ENCOUNTER FOR OTHER PREPROCEDURAL EXAMIN 11/14/2019 FLACO DURÁN MD Ot E03. 9 HYPOTHYROIDISM, UNSPECIFIED 11/14/2019 FLACO DURÁN MD Ot F32. 9 MAJOR DEPRESSIVE DISORDER, SINGLE EPISOD 11/14/2019 FLACO DURÁN MD Ot F41. 9 ANXIETY DISORDER, UNSPECIFIED 11/14/2019 FLACO DURÁN MD, Ot I25. 10 ATHSCL HEART DISEASE OF [place] CORONARY 11/14/2019 FLACO DURÁN MD, Ot I48. 91 UNSPECIFIED ATRIAL FIBRILLATION 11/14/2019 FLACO DURÁN MD, Ot R07. 0 PAIN IN THROAT 11/14/2019 FLACO DURÁN MD, Ot R07. 9 CHEST PAIN, UNSPECIFIED 11/14/2019 FLACO DURÁN MD, Ot R22. 0 LOCALIZED SWELLING, MASS AND LUMP, HEAD 11/14/2019 FLACO DURÁN MD, Ot Z79. 01 SKILLED NURSING (CURRENT) USE OF ANTICOAGULANT 11/14/2019 FLACO DURÁN MD, Ot Z82. 49 FAMILY HX OF [facility] DIS [facility] O[facility] DI 11/14/2019 FLACO DURÁN MD Ot Z85.038 PERSONAL HISTORY OF MALIGNANT NEOPLASM O 11/14/2019 FLACO DURÁN MD, Ot Z86.711 PERSONAL HISTORY OF PULMONARY EMBOLISM 11/14/2019 FLACO DURÁN MD, Ot Z86.718 PERSONAL HISTORY OF OTHER VENOUS THROMBO 11/14/2019 FLACO DURÁN MD Ot Z87.891 PERSONAL HISTORY OF NICOTINE DEPENDENCE 11/22/2019 FLACO DURÁN MD Ot E03. 9 HYPOTHYROIDISM, UNSPECIFIED 11/22/2019 FLACO DURÁN MD, Ot F32. 9 MAJOR DEPRESSIVE DISORDER, SINGLE EPISOD 11/22/2019 FLACO DURÁN MD, Ot F41. 9 ANXIETY DISORDER, UNSPECIFIED 11/22/2019 FLACO DURÁN MD, Ot I25. 10 ATHSCL HEART DISEASE OF [place] CORONARY 11/22/2019 FLACO DURÁN MD, Ot I48. 91 UNSPECIFIED ATRIAL FIBRILLATION 11/22/2019 FLACO DURÁN MD Ot R07. 0 PAIN IN THROAT 11/22/2019 FLACO DURÁN MD Ot R07. 9 CHEST PAIN, UNSPECIFIED 11/22/2019 FLACO DURÁN MD, Ot R22. 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 49 FAMILY HX OF [facility] DIS AND O[facility] DI 11/22/2019 FLACO DURÁN MD Ot Z85.038 PERSONAL HISTORY OF MALIGNANT NEOPLASM O 11/22/2019 FLACO DURÁN MD Ot Z86.711 PERSONAL HISTORY OF PULMONARY EMBOLISM 11/22/2019 FLACO DURÁN MD, Ot Z86.718 PERSONAL HISTORY OF OTHER VENOUS THROMBO 11/22/2019 FLACO DURÁN MD, Ot Z87.891 PERSONAL HISTORY OF NICOTINE DEPENDENCE 12/20/2019 TERESA MENESES MD Ot B19. 20 UNSPECIFIED VIRAL HEPATITIS C WITHOUT HE 12/20/2019 TERESA MENESES MD Ot E03. 9 HYPOTHYROIDISM, UNSPECIFIED 12/20/2019 TERESA MENESES MD Ot F32. 9 MAJOR DEPRESSIVE DISORDER, SINGLE EPISOD 12/20/2019 TERESA MENESES MD Ot F41. 9 ANXIETY DISORDER, UNSPECIFIED 12/20/2019 TERESA MENESES MD Ot G43.909 MIGRAINE, UNSP, NOT INTRACTABLE, WITHOUT 12/20/2019 TERESA MENESES MD Ot I25. 10 ATHSCL HEART DISEASE OF [place] CORONARY 12/20/2019 TERESA MENESES MD Ot I48. 91 UNSPECIFIED ATRIAL FIBRILLATION 12/20/2019 TERESA MENESES MD Ot I48. 92 UNSPECIFIED ATRIAL FLUTTER 12/20/2019 TERESA MENESES MD Ot L03.114 CELLULITIS OF LEFT UPPER LIMB 12/20/2019 TERESA MENESES MD Ot Z82. 49 FAMILY HX OF [facility] DIS AND OTH DI 12/20/2019 TERESA MENESES MD Ot Z86.010 PERSONAL HISTORY OF COLONIC POLYPS 12/20/2019 TERESA MENESES MD Ot Z86.718 PERSONAL HISTORY OF OTHER VENOUS THROMBO 12/20/2019 TERESA MENESES MD Ot Z87.448 PERSONAL HISTORY OF OTHER DISEASES OF UR 12/20/2019 TERESA MENESES MD Ot Z87.891 PERSONAL HISTORY OF NICOTINE DEPENDENCE 12/20/2019 TERESA MENESES MD Ot Z90. 49 ACQUIRED ABSENCE OF OTHER SPECIFIED PART 12/20/2019 TERESA MENESES MD Ot Z90. 81 ACQUIRED ABSENCE OF SPLEEN Procedures Code Description Performed By Per tad On 45.23 COLO NOSCOPY 02/16/2011 86.22 EXCI S DEBRIDE OF WOUND, INFECT, OR BURN 02/18/2011 86.04 OTHE R SKIN SUBQ I D 03/23/2011 90149 PSYC H IND W/MED CK 20 09/06/2012 00331 ROUT INE VENIPUNCTURE 02/13/2014 59960 INR (IN HOUSE) 02/13/2014 96111 CBC 02/13/2014 11157 CMP 02/13/2014 4877114 GF R CALC (RESULT ONLY) 02/13/2014 02847 SONDRA MIN D 25-HYDROXY (D2,D3, TOTAL) 02/13/2014 58731 VIT B 12 02/13/2014 66887 TSH 02/13/2014 TESTFRTOT TESTOSTERONE FREE AND TOTAL MALE 02/13/2014 85037 ROUT INE VENIPUNCTURE 02/19/2014 85426 LIPI D PANEL 02/19/2014 J1080 Depo -Testosterone 200 mg/mL oil 03/12/2014 54609 THER APUTIC INJ SQ/IM 04/11/2014 52781 THER APUTIC INJ SQ/IM 05/08/2014 78872 THER APUTIC INJ SQ/IM 06/20/2014 85886 THER APUTIC INJ SQ/IM 06/20/2014 32090 ROUT INE VENIPUNCTURE 06/21/2014 41205 UA L PRABHAKAR DIP 06/21/2014 TESTFRTOT TESTOSTERONE FREE AND TOTAL MALE 06/22/2014 61342 TEST OSTERONE TOTAL MALES 07/23/2014 26274 THER APUTIC INJ SQ/IM 07/23/2014 J1080 Depo -Testosterone 200 mg/mL oil 07/23/2014 60374 THER APUTIC INJ SQ/IM 08/20/2014 02458 THER APUTIC INJ SQ/IM 09/27/2014 73106 AMERITOX 11/05/2014 54451 THER APUTIC INJ SQ/IM 12/21/2014 99.61 ATRI AL CARDIOVERSION 02/17/2015 37.22 LEFT HEART CARDIAC CATH 02/18/2015 88.42 CONT RAST AORTOGRAM 02/18/2015 88.53 LT H EART ANGIOCARDIOGRAM 02/18/2015 88.56 ZACKERY WILLIAM ARTERIOGR-2 CATH 02/18/2015 [id number] ME ASURE OF CARDIAC SAMPL PRESSURE, L H 09/24/2017 [id number] FL UOROSCOPY OF MULT COR ART USING L OSM 09/24/2017 [id number] FL UOROSCOPY OF LEFT HEART USING LOW OSMO 09/24/2017 [id number] ME ASURE OF CARDIAC SAMPL PRESSURE, L H 10/13/2018 [id number] FL UOROSCOPY OF MULT COR ART USING L OSM 10/13/2018 [id number] FL UOROSCOPY OF LEFT HEART USING LOW OSMO 10/13/2018 [id number] FL UOROSCOPY OF THORACIC AORTA USING LOW 10/13/2018 Results Test Result Range CBC With Differential/Platelet - 7 09:03 WBC 8.8 x10E3/uL 3.4-10.8 RBC 5.24 x10E6/uL 4.14-5.80 Hemoglobin 15.0 g/dL 12.6-17.7 Hematocrit 44.3 % 37.5-51.0 MCV 85 fL 79-97 MCH 28.6 pg 26.6-33.0 MCHC 33.9 g/dL 31.5-35.7 RDW 13.9 % 12.3-15.4 Platelets 494 x10E3/uL 150-379 Neutrophils 57 % Lymphs 20 % Monocytes 15 % Eos 7 % Basos 1 % Neutrophils (Absolute) 5.1 x10E3/uL 1.4- 7.0 Lymphs (Absolute) 1.8 x10E3/uL 0.7-3.1 Monocytes(Absolute) 1.3 x10E3/uL 0.1-0.9 Eos (Absolute) 0.6 x10E3/uL 0.0-0.4 Baso (Absolute) 0.1 x10E3/uL 0.0-0.2 Immature Granulocytes 0 % Immature Grans (Abs) 0.0 x10E3/uL 0.0-0. 1 Comp. Metabolic Panel (14) - 01/07/17 09 :03 Glucose, Serum 92 mg/dL 65-99 BUN 13 [...] uIU/mL 0.450-4.500 Prostate-Specific Ag, Serum - 01/07/17 0 9:03 Prostate Specific Ag, Serum 3.0 ng/mL 0. 0-4.0 Complete blood count (CBC) with automate d white blood cell (WBC) differential - 06/27/17 19:40 Blood leukocytes automated count (number/volume) 9.0 10*3/uL 4.3-11.0 Blood erythrocytes automated count (number/volume) 5.16 10*6/uL 4.35-5.85 Venous blood hemoglobin measurement (mass/volume) 14.8 g/dL 13.3-17.7 Blood hematocrit (volume fraction) 44 % 40-54 Automated erythrocyte mean corpuscular volume 86 [ foz_us] 80-99 Automated erythrocyte mean corpuscular h emoglobin (mass per erythrocyte) 29 pg 25-34 Automated erythrocyte mean corpuscular h emoglobin concentration measurement (mass/volume) 34 g/dL 32-36 Automated erythrocyte distribution width ratio 14. 6 % 10.0- 14.5 Automated blood platelet count (count/volume) 421 10*3/uL [...] 10*3 1.0-4.0 Blood monocytes automated count (number/volume) 1. 2 10*3 0.0-1.0 Automated eosinophil count 0.7 10*3/uL 0 .0-0.3 Automated blood basophil count (count/volume) 0.1 10*3/uL 0.0-0.1 Comprehensive metabolic panel - 06/27/17 19:40 Serum or plasma sodium measurement (moles/volume) 139 mmol/L 135-145 Serum or plasma potassium measurement (moles/volume) 4.2 mmol/L 3.6-5.0 Serum or plasma chloride measurement (moles/volume) 107 mmol/L 98-107 Carbon dioxide 26 mmol/L 21-32 Serum or plasma anion gap determination (moles/volume) 6 mmol/L 5-14 Serum or plasma urea nitrogen measurement (mass/volume ) 21 mg/dL 7-18 Serum or plasma creatinine measurement (mass/volume) 1.11 mg/dL 0.60-1.30 Serum or plasma urea nitrogen/creatinine mass ratio 19 NRG Serum or plasma creatinine measurement w ith calculation of estimated glomerular filtration rate > NRG Serum or plasma glucose measurement (mass/volume) 101 mg/dL 70-105 Serum or plasma calcium measurement (mass/volume) 8.8 mg/dL 8.5-10.1 Serum or plasma total bilirubin measurement (mass/volu me) 0.4 mg/dL 0.1-1.0 Serum or plasma alkaline phosphatase javon surement (enzymatic activity/volume) 71 U/L 40-136 Serum or plasma aspartate aminotransfera se measurement (enzymatic activity/volume) 31 U/L 5-34 Serum or plasma alanine aminotransferase measurement (enzymatic activity/volume) 56 U/L 0-55 Serum or plasma protein measurement (mass/volume) 6.5 g/dL 6.4-8.2 Serum or plasma albumin measurement (mass/volume) 3.6 g/dL 3.2-4.5 Serum or plasma C reactive protein measu rement (mass/volume) - 06/27/17 19:40 Serum or plasma C reactive protein measurement (mass/v olume) 0.50 mg/dL 0.00-0.50 C-Reactive Protein - 06/28/17 22:54 C-Reactive [...] Occult Blood POSITIVE Negative Methicillin resistant Staphylococcus aur eus (MRSA) screening culture - 08/21/17 09:10 Methicillin resistant Staphylococcus aureus (MRSA) scr eening culture NEG NRG Automated blood complete blood count (he mogram) panel - 08/21/17 09:19 Blood leukocytes automated count (number/volume) 12.1 10*3/uL 4.3-11.0 Blood erythrocytes automated count (number/volume) 5.14 10*6/uL 4.35-5.85 Venous blood hemoglobin measurement (mass/volume) 14.4 g/dL 13.3-17.7 Blood hematocrit (volume fraction) 43 % 40-54 Automated erythrocyte mean corpuscular volume 84 [ foz_us] 80-99 Automated erythrocyte mean corpuscular h emoglobin (mass per erythrocyte) 28 pg 25-34 Automated erythrocyte mean corpuscular h emoglobin concentration measurement (mass/volume) 34 g/dL 32-36 Automated erythrocyte distribution width ratio 13. 5 % 10.0- 14.5 Automated blood platelet count (count/volume) 417 10*3/uL 130-400 Automated blood platelet mean volume measurement 10.3 [foz_us] 7.4-10.4 PT panel in platelet poor plasma by coag ulation assay - 08/21/17 09:19 Prothrombin time (PT) in platelet poor plasma by coagu lation assay 13.0 s 12.2-14.7 INR in platelet poor plasma or blood by coagulation as say 1.0 0.8-1.4 Activated partial thromboplastin time (a PTT) in platelet poor plasma bycoagulation assay - 08/21/17 09:19 Activated partial thromboplastin time (a PTT) in platelet poor plasma bycoagulation assay 31 s 24-35 Fibrin D-dimer FEU measurement in platel et poor plasma (mass/volume) - 08/21/17 09:19 Fibrin D-dimer FEU measurement in platelet [...] 5-14 Serum or plasma urea nitrogen measurement (mass/volume ) 14 mg/dL 7-18 Serum or plasma creatinine measurement (mass/volume) 1.03 mg/dL 0.60-1.30 Serum or plasma urea nitrogen/creatinine mass ratio 14 NRG Serum or plasma creatinine measurement w ith calculation of estimated glomerular filtration rate > NRG Serum or plasma glucose measurement (mass/volume) 111 mg/dL 70-105 Serum or plasma calcium measurement (mass/volume) 8.9 mg/dL 8.5-10.1 Serum or plasma total bilirubin measurement (mass/volu me) 0.7 mg/dL 0.1-1.0 Serum or plasma alkaline phosphatase javon surement (enzymatic activity/volume) 73 U/L 40-136 Serum or plasma aspartate aminotransfera se measurement (enzymatic activity/volume) 21 U/L 5-34 Serum or plasma alanine aminotransferase measurement (enzymatic activity/volume) 32 U/L 0-55 Serum or plasma protein measurement (mass/volume) 6.6 g/dL 6.4-8.2 Serum or plasma albumin measurement (mass/volume) 3.6 g/dL 3.2-4.5 Serum or plasma phosphate measurement (m ass/volume) - 08/21/17 09:19 Serum or plasma phosphate measurement (mass/volume) 2.7 mg/dL 2.3-4.7 Magnesium - 08/21/17 09:19 Magnesium 1.9 mg/dL 1.8-2.4 Serum or plasma troponin i.cardiac measu rement (mass/volume) - 08/21/17 09:19 Serum or plasma troponin i.cardiac measurement (mass/v olume) < ng/mL <0.30 Serum or plasma lithium measurement (mol es/volume) - 08/21/17 09:19 BNP level 106.7 pg/mL <100.0 Complete blood count (CBC) with automate d white blood cell (WBC) differential - 08/22/17 04:09 Blood leukocytes automated count (number/volume) 9.8 10*3/uL 4.3-11.0 Blood erythrocytes automated count (number/volume) 4.70 10*6/uL 4.35-5.85 Venous blood hemoglobin measurement (mass/volume) 13.3 g/dL 13.3-17.7 Blood hematocrit (volume fraction) 40 % 40-54 Automated erythrocyte mean corpuscular volume 86 [ foz_us] 80-99 Automated erythrocyte mean corpuscular h emoglobin (mass per erythrocyte) 28 pg 25-34 Automated erythrocyte mean corpuscular h emoglobin concentration measurement (mass/volume) 33 g/dL 32-36 Automated erythrocyte distribution width ratio 13. 4 % 10.0- 14.5 Automated blood platelet count (count/volume) 360 10*3/uL [...] 10*3 1.0-4.0 Blood monocytes automated count (number/volume) 2. 1 10*3 0.0-1.0 Automated eosinophil count 0.6 10*3/uL 0 .0-0.3 Automated blood basophil count (count/volume) 0.1 10*3/uL 0.0-0.1 Whole blood basic metabolic panel - 12/04 04:09 Serum or plasma sodium measurement (moles/volume) 137 mmol/L 135-145 Serum or plasma potassium measurement (moles/volume) 3.9 mmol/L 3.6-5.0 Serum or plasma chloride measurement (moles/volume) 105 mmol/L 98-107 Carbon dioxide 27 mmol/L 21-32 Serum or plasma anion gap determination (moles/volume) 5 mmol/L 5-14 Serum or plasma urea nitrogen measurement (mass/volume ) 15 mg/dL 7-18 Serum or plasma creatinine measurement (mass/volume) 1.10 mg/dL 0.60-1.30 Serum or plasma urea nitrogen/creatinine mass ratio 14 NRG Serum or plasma creatinine measurement w ith calculation of estimated glomerular filtration rate > NRG Serum or plasma glucose measurement (mass/volume) 99 mg/dL 70-105 Serum or plasma calcium measurement (mass/volume) 8.5 mg/dL 8.5-10.1 Serum or plasma phosphate measurement (m ass/volume) - 08/22/17 04:09 Serum or plasma phosphate measurement (mass/volume) 3.0 mg/dL 2.3-4.7 Magnesium - 08/22/17 04:09 Magnesium 1.8 mg/dL 1.8-2.4 Blood or tissue F5 gene p.[id number] detectio n by molecular genetics method - 08/23/17 11:01 Blood or tissue F5 gene p.R506Q detectio n by molecular genetics method Negative Negative Coagulation factor 5 activated measureme nt (units/volume) in platelet poor plasma by coagulation assay See Footnote NRG Prothrombin gene [id number] mutation detect ion - 08/23/17 11:01 Prothrombin gene [id number] mutation detection See fo kehinde NR Comprehensive metabolic panel - 09/01/17 21:21 Serum or plasma sodium measurement (moles/volume) 138 mmol/L 135-145 Serum or plasma potassium measurement (moles/volume) 5.4 mmol/L 3.6-5.0 Serum or plasma chloride measurement (moles/volume) 104 mmol/L 98-107 Carbon dioxide 22 mmol/L 21-32 Serum or plasma anion gap determination (moles/volume) 12 mmol/L 5-14 Serum or plasma urea nitrogen measurement (mass/volume ) 19 mg/dL 7-18 Serum or plasma creatinine measurement (mass/volume) 1.12 mg/dL 0.60-1.30 Serum or plasma urea nitrogen/creatinine mass ratio 17 NRG Serum or plasma creatinine measurement w ith calculation of estimated glomerular filtration rate > NRG Serum or plasma glucose measurement (mass/volume) 96 mg/dL 70-105 Serum or plasma calcium measurement (mass/volume) 9.2 mg/dL 8.5-10.1 Serum or plasma total bilirubin measurement (mass/volu me) 0.2 mg/dL 0.1-1.0 Serum or plasma alkaline phosphatase javon surement (enzymatic activity/volume) 88 U/L 40-136 Serum or plasma aspartate aminotransfera se measurement (enzymatic activity/volume) 29 U/L 5-34 Serum or plasma alanine aminotransferase measurement (enzymatic activity/volume) 31 U/L 0-55 Serum or plasma protein measurement (mass/volume) 7.4 g/dL 6.4-8.2 Serum or plasma albumin measurement (mass/volume) 3.8 g/dL 3.2-4.5 Complete blood count (CBC) with automate d white blood cell (WBC) differential - 09/01/17 21:21 Blood leukocytes automated count (number/volume) 12.0 10*3/uL 4.3-11.0 Blood erythrocytes automated count (number/volume) 5.60 10*6/uL 4.35-5.85 Venous blood hemoglobin measurement (mass/volume) 15.7 g/dL 13.3-17.7 Blood hematocrit (volume fraction) 47 % 40-54 Automated erythrocyte mean corpuscular volume 83 [ foz_us] 80-99 Automated erythrocyte mean corpuscular h emoglobin (mass per erythrocyte) 28 pg 25-34 Automated erythrocyte mean corpuscular h emoglobin concentration measurement (mass/volume) 34 g/dL 32-36 Automated erythrocyte distribution width ratio 14. 2 % 10.0- 14.5 Automated blood platelet count (count/volume) 653 10*3/uL [...] 10*3 1.0-4.0 Blood monocytes automated count (number/volume) 1. 8 10*3 0.0-1.0 Automated eosinophil count 0.6 10*3/uL 0 .0-0.3 Automated blood basophil count (count/volume) 0.1 10*3/uL 0.0-0.1 PT panel in platelet poor plasma by coag ulation assay - 09/01/17 21:21 Prothrombin time (PT) in platelet poor plasma by coagu lation assay 11.8 s 12.2-14.7 INR in platelet poor plasma or blood by coagulation as say 0.9 0.8-1.4 Magnesium - 09/01/17 21:21 Magnesium 3.1 mg/dL 1.8-2.4 Serum or plasma troponin i.cardiac measu rement (mass/volume) - 09/01/17 21:21 Serum or plasma troponin i.cardiac measurement (mass/v olume) < ng/mL <0.30 Activated partial thromboplastin time (a PTT) in platelet poor plasma bycoagulation assay - 09/01/17 21:21 Activated partial thromboplastin time (a PTT) in platelet poor plasma bycoagulation assay 25 s 24-35 Serum or plasma lithium measurement (mol es/volume) - 09/01/17 21:21 BNP level < pg/mL <100.0 Complete blood count (CBC) with automate d white blood cell (WBC) differential - 09/24/17 04:55 Blood leukocytes automated count (number/volume) 9.2 10*3/uL 4.3-11.0 Blood erythrocytes automated count (number/volume) 5.15 10*6/uL 4.35-5.85 Venous blood hemoglobin measurement (mass/volume) 14.3 g/dL 13.3-17.7 Blood hematocrit (volume fraction) 38 % 40-54 Automated erythrocyte mean corpuscular volume 73 [ foz_us] 80-99 Automated erythrocyte mean corpuscular h emoglobin (mass per erythrocyte) 28 pg 25-34 Automated erythrocyte mean corpuscular h emoglobin concentration measurement (mass/volume) 38 g/dL 32-36 Automated erythrocyte distribution width ratio 14. 0 % 10.0- 14.5 Automated blood platelet count (count/volume) 376 10*3/uL [...] 10*3 1.0-4.0 Blood monocytes automated count (number/volume) 1. 5 10*3 0.0-1.0 Automated eosinophil count 0.3 10*3/uL 0 .0-0.3 Automated blood basophil count (count/volume) 0.1 10*3/uL 0.0-0.1 Whole blood basic metabolic panel - 02/04 04:55 Serum or plasma sodium measurement (moles/volume) 140 mmol/L 135-145 Serum or plasma potassium measurement (moles/volume) 4.3 mmol/L 3.6-5.0 Serum or plasma chloride measurement (moles/volume) 107 mmol/L 98-107 Carbon dioxide 23 mmol/L 21-32 Serum or plasma anion gap determination (moles/volume) 10 mmol/L 5-14 Serum or plasma urea nitrogen measurement (mass/volume ) 16 mg/dL 7-18 Serum or plasma creatinine measurement (mass/volume) 0.91 mg/dL 0.60-1.30 Serum or plasma urea nitrogen/creatinine mass ratio 18 NRG Serum or plasma creatinine measurement w ith calculation of estimated glomerular filtration rate > NRG Serum or plasma glucose measurement (mass/volume) 102 mg/dL 70-105 Serum or plasma calcium measurement (mass/volume) 8.7 mg/dL 8.5-10.1 Magnesium - 09/24/17 04:55 Magnesium 2.1 mg/dL 1.8-2.4 Serum or plasma troponin i.cardiac measu rement (mass/volume) - 09/24/17 04:55 Serum or plasma troponin i.cardiac measurement (mass/v olume) < ng/mL <0.30 Methicillin resistant Staphylococcus aur eus (MRSA) screening culture - 09/24/17 08:28 Methicillin resistant Staphylococcus aureus (MRSA) scr eening culture NEG NRG Complete blood count (CBC) with automate d white blood cell (WBC) differential - 09/25/17 20:20 Blood leukocytes automated count (number/volume) 9.6 10*3/uL 4.3-11.0 Blood erythrocytes automated count (number/volume) 5.49 10*6/uL 4.35-5.85 Venous blood hemoglobin measurement (mass/volume) 15.2 g/dL 13.3-17.7 Blood hematocrit (volume fraction) 43 % 40-54 Automated erythrocyte mean corpuscular volume 79 [ foz_us] 80-99 Automated erythrocyte mean corpuscular h emoglobin (mass per erythrocyte) 28 pg 25-34 Automated erythrocyte mean corpuscular h emoglobin concentration measurement (mass/volume) 35 g/dL 32-36 Automated erythrocyte distribution width ratio 14. 2 % 10.0- 14.5 Automated blood platelet count (count/volume) 399 10*3/uL [...] 10*3 1.0-4.0 Blood monocytes automated count (number/volume) 1. 6 10*3 0.0-1.0 Automated eosinophil count 0.6 10*3/uL 0 .0-0.3 Automated blood basophil count (count/volume) 0.1 10*3/uL 0.0-0.1 PT panel in platelet poor plasma by coag ulation assay - 09/25/17 20:20 Prothrombin time (PT) in platelet poor plasma by coagu lation assay 12.6 s 12.2-14.7 INR in platelet poor plasma or blood by coagulation as say 0.9 0.8-1.4 Activated partial thromboplastin time (a PTT) in platelet poor plasma bycoagulation assay - 09/25/17 20:20 Activated partial thromboplastin time (a PTT) in platelet poor plasma bycoagulation assay 27 s 24-35 Comprehensive metabolic panel - 09/25/17 20:20 Serum or plasma sodium measurement (moles/volume) 141 mmol/L 135-145 Serum or plasma potassium measurement (moles/volume) 4.1 mmol/L 3.6-5.0 Serum or plasma chloride measurement (moles/volume) 105 mmol/L 98-107 Carbon dioxide 25 mmol/L 21-32 Serum or plasma anion gap determination (moles/volume) 11 mmol/L 5-14 Serum or plasma urea nitrogen measurement (mass/volume ) 13 mg/dL 7-18 Serum or plasma creatinine measurement (mass/volume) 1.04 mg/dL 0.60-1.30 Serum or plasma urea nitrogen/creatinine mass ratio 13 NRG Serum or plasma creatinine measurement w ith calculation of estimated glomerular filtration rate > NRG Serum or plasma glucose measurement (mass/volume) 103 mg/dL 70-105 Serum or plasma calcium measurement (mass/volume) 9.2 mg/dL 8.5-10.1 Serum or plasma total bilirubin measurement (mass/volu me) 0.3 mg/dL 0.1-1.0 Serum or plasma alkaline phosphatase javon surement (enzymatic activity/volume) 85 U/L 40-136 Serum or plasma aspartate aminotransfera se measurement (enzymatic activity/volume) 21 U/L 5-34 Serum or plasma alanine aminotransferase measurement (enzymatic activity/volume) 30 U/L 0-55 Serum or plasma protein measurement (mass/volume) 6.9 g/dL 6.4-8.2 Serum or plasma albumin measurement (mass/volume) 3.8 g/dL 3.2-4.5 Magnesium - 09/25/17 20:20 Magnesium 2.1 mg/dL 1.8-2.4 Serum or plasma lithium measurement (mol es/volume) - 09/25/17 20:20 BNP level 72.3 pg/mL <100.0 Serum or plasma troponin i.cardiac measu rement (mass/volume) - 09/25/17 20:20 Serum or plasma troponin i.cardiac measurement (mass/v olume) < ng/mL <0.30 Myoglobin, serum - 09/25/17 20:20 Myoglobin, serum 53.8 ng/mL 10.0-92.0 Complete blood count (CBC) with automate d white blood cell (WBC) differential - 11/12/17 11:55 Blood leukocytes automated count (number/volume) 8.8 10*3/uL 4.3-11.0 Blood erythrocytes automated count (number/volume) 5.75 10*6/uL 4.35-5.85 Venous blood hemoglobin measurement (mass/volume) 16.2 g/dL 13.3-17.7 Blood hematocrit (volume fraction) 46 % 40-54 Automated erythrocyte mean corpuscular volume 81 [ foz_us] 80-99 Automated erythrocyte mean corpuscular h emoglobin (mass per erythrocyte) 28 pg 25-34 Automated erythrocyte mean corpuscular h emoglobin concentration measurement (mass/volume) 35 g/dL 32-36 Automated erythrocyte distribution width ratio 16. 3 % 10.0- 14.5 Automated blood platelet count (count/volume) 490 10*3/uL [...] 10*3 1.0-4.0 Blood monocytes automated count (number/volume) 1. 2 10*3 0.0-1.0 Automated eosinophil count 0.3 10*3/uL 0 .0-0.3 Automated blood basophil count (count/volume) 0.1 10*3/uL 0.0-0.1 Comprehensive metabolic panel - 11/12/17 11:55 Serum or plasma sodium measurement (moles/volume) 139 mmol/L 135-145 Serum or plasma potassium measurement (moles/volume) 4.5 mmol/L 3.6-5.0 Serum or plasma chloride measurement (moles/volume) 107 mmol/L 98-107 Carbon dioxide 24 mmol/L 21-32 Serum or plasma anion gap determination (moles/volume) 8 mmol/L 5-14 Serum or plasma urea nitrogen measurement (mass/volume ) 14 mg/dL 7-18 Serum or plasma creatinine measurement (mass/volume) 1.10 mg/dL 0.60-1.30 Serum or plasma urea nitrogen/creatinine mass ratio 13 NRG Serum or plasma creatinine measurement w ith calculation of estimated glomerular filtration rate > NRG Serum or plasma glucose measurement (mass/volume) 93 mg/dL 70-105 Serum or plasma calcium measurement (mass/volume) 9.5 mg/dL 8.5-10.1 Serum or plasma total bilirubin measurement (mass/volu me) 0.5 mg/dL 0.1-1.0 Serum or plasma alkaline phosphatase javon surement (enzymatic activity/volume) 87 U/L 40-136 Serum or plasma aspartate aminotransfera se measurement (enzymatic activity/volume) 20 U/L 5-34 Serum or plasma alanine aminotransferase measurement (enzymatic activity/volume) 30 U/L 0-55 Serum or plasma protein measurement (mass/volume) 6.8 g/dL 6.4-8.2 Serum or plasma albumin measurement (mass/volume) 4.0 g/dL 3.2-4.5 Body fluid hepatitis B virus surface ant igen detection - 11/12/17 11:55 Confirmatory quantitative serum or plasm a hepatitis B virus surface antigen measurement Non-Reactive Non-Reactive Hepatitis C virus RNA viral load by prob e and target amplification method (units/volume) - 11/12/17 11:55 Hepatitis C virus (HCV) RNA viral load m easurement (log number/volume) 6.90 % <=1.07 Hepatitis C virus (HCV) RNA detection by PCR with reflex to quantitation [id number] <=11 HEPATITIS C GENOTYPE - 11/12/17 11:55 Blood hepatitis C virus genotype identif ication by probe and target amplification method Type 1A NRG Complete blood count (CBC) with automate d white blood cell (WBC) differential - 06/24/18 12:38 Blood leukocytes automated count (number/volume) 8.1 10*3/uL 4.3-11.0 Blood erythrocytes automated count (number/volume) 5.75 10*6/uL 4.35-5.85 Venous blood hemoglobin measurement (mass/volume) 16.3 g/dL 13.3-17.7 Blood hematocrit (volume fraction) 47 % 40-54 Automated erythrocyte mean corpuscular volume 82 [ foz_us] 80-99 Automated erythrocyte mean corpuscular h emoglobin (mass per erythrocyte) 28 pg 25-34 Automated erythrocyte mean corpuscular h emoglobin concentration measurement (mass/volume) 35 g/dL 32-36 Automated erythrocyte distribution width ratio 15. 0 % 10.0- 14.5 Automated blood platelet count (count/volume) 478 10*3/uL [...] 10*3 1.0-4.0 Blood monocytes automated count (number/volume) 1. 2 10*3 0.0-1.0 Automated eosinophil count 0.4 10*3/uL 0 .0-0.3 Automated blood basophil count (count/volume) 0.1 10*3/uL 0.0-0.1 PT panel in platelet poor plasma by coag ulation assay - 06/24/18 12:38 Prothrombin time (PT) in platelet poor plasma by coagu lation assay 12.2 s 12.2-14.7 INR in platelet poor plasma or blood by coagulation as say 0.9 0.8-1.4 Comprehensive metabolic panel - 06/24/18 12:38 Serum or plasma sodium measurement (moles/volume) 138 mmol/L 135-145 Serum or plasma potassium measurement (moles/volume) 4.3 mmol/L 3.6-5.0 Serum or plasma chloride measurement (moles/volume) 108 mmol/L 98-107 Carbon dioxide 21 mmol/L 21-32 Serum or plasma anion gap determination (moles/volume) 9 mmol/L 5-14 Serum or plasma urea nitrogen measurement (mass/volume ) 14 mg/dL 7-18 Serum or plasma creatinine measurement (mass/volume) 1.18 mg/dL 0.60-1.30 Serum or plasma urea nitrogen/creatinine mass ratio 12 NRG Serum or plasma creatinine measurement w ith calculation of estimated glomerular filtration rate > NRG Serum or plasma glucose measurement (mass/volume) 88 mg/dL 70-105 Serum or plasma calcium measurement (mass/volume) 10.0 mg/dL 8.5-10.1 Serum or plasma total bilirubin measurement (mass/volu me) 0.3 mg/dL 0.1-1.0 Serum or plasma alkaline phosphatase javon surement (enzymatic activity/volume) 71 U/L 40-136 Serum or plasma aspartate aminotransfera se measurement (enzymatic activity/volume) 12 U/L 5-34 Serum or plasma alanine aminotransferase measurement (enzymatic activity/volume) 15 U/L 0-55 Serum or plasma protein measurement (mass/volume) 6.9 g/dL 6.4-8.2 Serum or plasma albumin measurement (mass/volume) 3.9 g/dL 3.2-4.5 CALCIUM CORRECTED 10.1 mg/dL 8.5-10.1 Serum or plasma urfac-4-asxejuvizhc.tumo r marker measurement (mass/volume) - 06/24/18 12:38 Serum or plasma ahuzb-1-gxmuepcirfe.tumo r marker measurement (mass/volume) 6.0 % 0.0-8.8 Hepatitis C virus RNA viral load by prob e and target amplification method (units/volume) - 06/24/18 12:38 Hepatitis C virus (HCV) RNA viral load m easurement (log number/volume) Not Detected Not Detected Hepatitis C virus (HCV) RNA detection by PCR with reflex to quantitation Not Detected Not Detected Thyroid Stimulating Hormone - 08/05/18 1 4:43 TSH 1.68 mIU/mL 0.32-5.00 iStat BMP - [...] ng/mL 0.0-0.4 Complete blood count (CBC) with automate d white blood cell (WBC) differential - 10/04/18 10:34 Blood leukocytes automated count (number/volume) 9.4 10*3/uL 4.3-11.0 Blood erythrocytes automated count (number/volume) 5.64 10*6/uL 4.35-5.85 Venous blood hemoglobin measurement (mass/volume) 16.1 g/dL 13.3-17.7 Blood hematocrit (volume fraction) 48 % 40-54 Automated erythrocyte mean corpuscular volume 84 [ foz_us] 80-99 Automated erythrocyte mean corpuscular h emoglobin (mass per erythrocyte) 29 pg 25-34 Automated erythrocyte mean corpuscular h emoglobin concentration measurement (mass/volume) 34 g/dL 32-36 Automated erythrocyte distribution width ratio 15. 7 % 10.0- 14.5 Automated blood platelet count (count/volume) 438 10*3/uL [...] 10*3 1.0-4.0 Blood monocytes automated count (number/volume) 1. 2 10*3 0.0-1.0 Automated eosinophil count 0.4 10*3/uL 0 .0-0.3 Automated blood basophil count (count/volume) 0.1 10*3/uL 0.0-0.1 Complete blood count (CBC) with automate d white blood cell (WBC) differential - 10/04/18 10:34 Blood leukocytes automated count (number/volume) 9.4 10*3/uL 4.3-11.0 Blood erythrocytes automated count (number/volume) 5.64 10*6/uL 4.35-5.85 Venous blood hemoglobin measurement (mass/volume) 16.1 g/dL 13.3-17.7 Blood hematocrit (volume fraction) 48 % 40-54 Automated erythrocyte mean corpuscular volume 84 [ foz_us] 80-99 Automated erythrocyte mean corpuscular h emoglobin (mass per erythrocyte) 29 pg 25-34 Automated erythrocyte mean corpuscular h emoglobin concentration measurement (mass/volume) 34 g/dL 32-36 Automated erythrocyte distribution width ratio 15. 7 % 10.0- 14.5 Automated blood platelet count (count/volume) 438 10*3/uL [...] 10*3 1.0-4.0 Blood monocytes automated count (number/volume) 1. 2 10*3 0.0-1.0 Automated eosinophil count 0.4 10*3/uL 0 .0-0.3 Automated blood basophil count (count/volume) 0.1 10*3/uL 0.0-0.1 Comprehensive metabolic panel - 10/04/18 10:34 Serum or plasma sodium measurement (moles/volume) 139 mmol/L 135-145 Serum or plasma potassium measurement (moles/volume) 4.3 mmol/L 3.6-5.0 Serum or plasma chloride measurement (moles/volume) 107 mmol/L 98-107 Carbon dioxide 22 mmol/L 21-32 Serum or plasma anion gap determination (moles/volume) 10 mmol/L 5-14 Serum or plasma urea nitrogen measurement (mass/volume ) 19 mg/dL 7-18 Serum or plasma creatinine measurement (mass/volume) 1.19 mg/dL 0.60-1.30 Serum or plasma urea nitrogen/creatinine mass ratio 16 NRG Serum or plasma creatinine measurement w ith calculation of estimated glomerular filtration rate > NRG Serum or plasma glucose measurement (mass/volume) 98 mg/dL 70-105 Serum or plasma calcium measurement (mass/volume) 9.4 mg/dL 8.5-10.1 Serum or plasma total bilirubin measurement (mass/volu me) 0.3 mg/dL 0.1-1.0 Serum or plasma alkaline phosphatase javon surement (enzymatic activity/volume) 67 U/L 40-136 Serum or plasma aspartate aminotransfera se measurement (enzymatic activity/volume) 16 U/L 5-34 Serum or plasma alanine aminotransferase measurement (enzymatic activity/volume) 16 U/L 0-55 Serum or plasma protein [...] 5-14 Serum or plasma urea nitrogen measurement (mass/volume ) 19 mg/dL 7-18 Serum or plasma creatinine measurement (mass/volume) 1.18 mg/dL 0.60-1.30 Serum or plasma urea nitrogen/creatinine mass ratio 16 NRG Serum or plasma creatinine measurement w ith calculation of estimated glomerular filtration rate > NRG Serum or plasma glucose measurement (mass/volume) 100 mg/dL 70-105 Serum or plasma calcium measurement (mass/volume) 9.3 mg/dL 8.5-10.1 Serum or plasma total bilirubin measurement (mass/volu me) 0.3 mg/dL 0.1-1.0 Serum or plasma alkaline phosphatase javon surement (enzymatic activity/volume) 68 U/L 40-136 Serum or plasma aspartate aminotransfera se measurement (enzymatic activity/volume) 17 U/L 5-34 Serum or plasma alanine aminotransferase measurement (enzymatic activity/volume) 16 U/L 0-55 Serum or plasma protein measurement (mass/volume) 6.7 g/dL 6.4-8.2 Serum or plasma albumin measurement (mass/volume) 3.8 g/dL 3.2-4.5 CALCIUM CORRECTED 9.5 mg/dL 8.5-10.1 THYROID STIMULATING HORMONE - 10/04/18 1 0:34 THYROID STIMULATING HORMONE 3.56 u[iU]/mL 0.35-4.94 Serum or plasma thyroxine (T4) free man urement (mass/volume) - 10/04/18 10:34 Serum or plasma thyroxine (T4) free measurement (mass/ volume) 1.12 ng/dL 0.70-1.48 Serum or plasma zabyr-1-tenubwvsstl.tumo r marker measurement (mass/volume) - 10/04/18 10:34 Serum or plasma uwakd-9-qvlkkbmerbd.tumo r marker measurement (mass/volume) 6.0 % 0.0-8.8 Hepatitis C virus RNA viral load by prob e and target amplification method (units/volume) - 10/04/18 10:34 Hepatitis C virus (HCV) RNA viral load m easurement (log number/volume) Not Detected Not Detected Hepatitis C virus (HCV) RNA detection by PCR with reflex to quantitation Not Detected Not Detected Serum or plasma troponin i.cardiac measu rement (mass/volume) - 10/12/18 20:30 Serum or plasma troponin i.cardiac measurement (mass/v olume) 0.058 ng/mL <0.028 THYROID STIMULATING HORMONE - 10/12/18 2 0:30 THYROID STIMULATING HORMONE 4.22 u[iU]/mL 0.35-4.94 Serum or plasma thyroxine (T4) free man urement (mass/volume) - 10/12/18 20:30 Serum or plasma thyroxine (T4) free measurement (mass/ volume) 1.11 ng/dL 0.70-1.48 Methicillin resistant Staphylococcus aur eus (MRSA) screening culture - 10/12/18 20:38 Methicillin resistant Staphylococcus aureus (MRSA) scr eening culture NEG NRG Complete blood count (CBC) with automate d white blood cell (WBC) differential - 10/13/18 03:33 Blood leukocytes automated count (number/volume) 8.5 10*3/uL 4.3-11.0 Blood erythrocytes automated count (number/volume) 4.68 10*6/uL 4.35-5.85 Venous blood hemoglobin measurement (mass/volume) 13.2 g/dL 13.3-17.7 Blood hematocrit (volume fraction) 39 % 40-54 Automated erythrocyte mean corpuscular volume 84 [ foz_us] 80-99 Automated erythrocyte mean corpuscular h emoglobin (mass per erythrocyte) 28 pg 25-34 Automated erythrocyte mean corpuscular h emoglobin concentration measurement (mass/volume) 34 g/dL 32-36 Automated erythrocyte distribution width ratio 15. 5 % 10.0- 14.5 Automated blood platelet count (count/volume) 383 10*3/uL [...] 10*3 1.0-4.0 Blood monocytes automated count (number/volume) 1. 3 10*3 0.0-1.0 Automated eosinophil count 0.4 10*3/uL 0 .0-0.3 Automated blood basophil count (count/volume) 0.1 10*3/uL 0.0-0.1 Serum or plasma phosphate measurement (m ass/volume) - 10/13/18 03:33 Serum or plasma phosphate [...] 5-14 Serum or plasma urea nitrogen measurement (mass/volume ) 17 mg/dL 7-18 Serum or plasma creatinine measurement (mass/volume) 0.94 mg/dL 0.60-1.30 Serum or plasma urea nitrogen/creatinine mass ratio 18 NRG Serum or plasma creatinine measurement w ith calculation of estimated glomerular filtration rate > NRG Serum or plasma glucose measurement (mass/volume) 88 mg/dL 70-105 Serum or plasma calcium measurement (mass/volume) 8.5 mg/dL 8.5-10.1 Serum or plasma total bilirubin measurement (mass/volu me) 0.4 mg/dL 0.1-1.0 Serum or plasma alkaline phosphatase javon surement (enzymatic activity/volume) 51 U/L 40-136 Serum or plasma aspartate aminotransfera se measurement (enzymatic activity/volume) 13 U/L 5-34 Serum or plasma alanine aminotransferase measurement (enzymatic activity/volume) 11 U/L 0-55 Serum or plasma protein measurement (mass/volume) 4.8 g/dL 6.4-8.2 Serum or plasma albumin measurement (mass/volume) 3.1 g/dL 3.2-4.5 CALCIUM CORRECTED 9.2 mg/dL 8.5-10.1 Serum or plasma troponin i.cardiac measu rement (mass/volume) - 10/13/18 03:33 Serum or plasma troponin i.cardiac measurement (mass/v olume) 0.048 ng/mL <0.028 Complete blood count (CBC) with automate d white blood cell (WBC) differential - 11/24/18 04:55 Blood leukocytes automated count (number/volume) 11.7 10*3/uL 4.3-11.0 Blood erythrocytes automated count (number/volume) 5.00 10*6/uL 4.35-5.85 Venous blood hemoglobin measurement (mass/volume) 14.4 g/dL 13.3-17.7 Blood hematocrit (volume fraction) 43 % 40-54 Automated erythrocyte mean corpuscular volume 87 [ foz_us] 80-99 Automated erythrocyte mean corpuscular h emoglobin (mass per erythrocyte) 29 pg 25-34 Automated erythrocyte mean corpuscular h emoglobin concentration measurement (mass/volume) 33 g/dL 32-36 Automated erythrocyte distribution width ratio 14. 2 % 10.0- 14.5 Automated blood platelet count (count/volume) 427 10*3/uL 130-400 Automated blood platelet mean volume measurement 9.6 [foz_us] 7.4-10.4 Automated blood neutrophils/100 leukocytes 79 % 42-75 Automated blood lymphocytes/100 leukocytes 7 % 12-44 Blood monocytes/100 leukocytes 11 % 0-12 Automated blood eosinophils/100 leukocytes 3 % 0-10 Automated blood basophils/100 leukocytes 1 % 0-10 Blood neutrophils automated count (number/volume) 9.2 10*3 1.8-7.8 Blood lymphocytes automated count (number/volume) 0.8 10*3 1.0-4.0 Blood monocytes automated count (number/volume) 1. 3 10*3 0.0-1.0 Automated eosinophil count 0.3 10*3/uL 0 .0-0.3 Automated blood basophil count (count/volume) 0.1 10*3/uL 0.0-0.1 Blood manual differential performed dete ction - 11/24/18 04:55 Blood monocytes/100 leukocytes 7 % NRG Manual blood segmented neutrophils/100 leukocytes 86 % NRG Blood band neutrophils/100 leukocytes 2 % NRG Manual blood lymphocytes/100 leukocytes 3 % NRG Manual eosinophils/100 leukocytes in nose 2 % NRG Manual blood basophils/100 leukocytes 0 % NRG PT panel in platelet poor plasma by coag ulation assay - 11/24/18 04:55 Prothrombin time (PT) in platelet poor plasma by coagu lation assay 13.1 s 12.2-14.7 INR in platelet poor plasma or blood by coagulation as say 1.0 0.8-1.4 Activated partial thromboplastin time (a PTT) in platelet poor plasma bycoagulation assay - 11/24/18 04:55 Activated partial thromboplastin time (a PTT) in platelet poor plasma bycoagulation assay 25 s 24-35 Comprehensive metabolic panel - 11/24/18 04:55 Serum or plasma sodium measurement (moles/volume) 138 mmol/L 135-145 Serum or plasma potassium measurement (moles/volume) 4.4 mmol/L 3.6-5.0 Serum or plasma chloride measurement (moles/volume) 102 mmol/L 98-107 Carbon dioxide 23 mmol/L 21-32 Serum or plasma anion gap determination (moles/volume) 13 mmol/L 5-14 Serum or plasma urea nitrogen measurement (mass/volume ) 15 mg/dL 7-18 Serum or plasma creatinine measurement (mass/volume) 1.28 mg/dL 0.60-1.30 Serum or plasma urea nitrogen/creatinine mass ratio 12 NRG Serum or plasma creatinine measurement w ith calculation of estimated glomerular filtration rate 57 NRG Serum or plasma glucose measurement (mass/volume) 104 mg/dL 70-105 Serum or plasma calcium measurement (mass/volume) 9.1 mg/dL 8.5-10.1 Serum or plasma total bilirubin measurement (mass/volu me) 0.2 mg/dL 0.1-1.0 Serum or plasma alkaline phosphatase javon surement (enzymatic activity/volume) 60 U/L 40-136 Serum or plasma aspartate aminotransfera se measurement (enzymatic activity/volume) 11 U/L 5-34 Serum or plasma alanine aminotransferase measurement (enzymatic activity/volume) 10 U/L 0-55 Serum or plasma protein measurement (mass/volume) 6.2 g/dL 6.4-8.2 Serum or plasma albumin measurement (mass/volume) 3.6 g/dL 3.2-4.5 CALCIUM CORRECTED 9.4 mg/dL 8.5-10.1 Magnesium - 11/24/18 04:55 Magnesium 2.0 mg/dL 1.8-2.4 TROPONIN T - 11/24/18 04:55 TROPONIN T 29 % <=15 Thyroid Stimulating Hormone - 02/03/19 1 7:45 TSH 2.71 mIU/mL 0.32-5.00 Urinalysis - 02/03/19 19:12 Icotest N/A Negative Urine Volume Urine Volume Sufficient (10mL) Urine Yeast No Yeast present Urine-Appearance Clear Clear Urine-Bacteria Negative Urine-Bilirubin Negative Negative Urine-Blood Negative Negative Urine-Color Yellow Colorless-Lt. [place] ow Urine-Glucose Negative Negative Urine-Ketones Negative Negative Urine-Leukocytes Negative Negative Urine-Mucus 1+ Urine-Nitrite Negative Negative Urine-Other Urine Saved if Culture Need ed (48hrs from time of collection) Urine-pH 5.5 5-8.5 Urine-Protein Negative Negative Urine-RBC Negative Urine-Specific [place] 1.010 1.000-1 .030 Urine-WBC Rare/HPF Urobilinogen 0.2 E.U./dL 0.2-1.0 PDM - 09 PANEL (PROFILE 1) - 02/08/19 14 :15 Prescribed Drug 1 Oxycodone NRG Creatinine 169.9 mg/dL > or = 20.0 pH 5.93 4.5 - 9.0 Oxidant NEGATIVE mcg/mL <200 Amphetamines NEGATIVE ng/mL <500 medMATCH Amphetamines CONSISTENT NRG Benzodiazepines NEGATIVE CONFIRMED ng/mL <100 Marijuana Metabolite NEGATIVE ng/mL <20 medMATCH Marijuana Metab CONSISTENT NRG Cocaine Metabolite NEGATIVE ng/mL <150 medMATCH Cocaine Metab CONSISTENT NRG Opiates NEGATIVE CONFIRMED ng/mL <100 Oxycodone POSITIVE ng/mL <100 COMMENT NRG Alphahydroxyalprazolam NEGATIVE ng/mL <25 medMATCH aOH alprazolam INCONSISTENT NR G Alphahydroxymidazolam NEGATIVE ng/mL < 50 medMATCH aOH midazolam CONSISTENT NRG Alphahydroxytriazolam NEGATIVE ng/mL < 50 medMATCH aOH triazolam CONSISTENT NRG Aminoclonazepam NEGATIVE ng/mL <25 medMATCH Aminoclonazepam CONSISTENT NRG Hydroxyethylflurazepam NEGATIVE ng/mL <50 medMATCH OH,Et flurazepam CONSISTENT NR G Lorazepam NEGATIVE ng/mL <50 medMATCH Lorazepam CONSISTENT NRG Nordiazepam NEGATIVE ng/mL <50 medMATCH Nordiazepam CONSISTENT NRG Oxazepam NEGATIVE ng/mL <50 medMATCH Oxazepam CONSISTENT NRG Temazepam NEGATIVE ng/mL <50 medMATCH Temazepam CONSISTENT NRG Codeine NEGATIVE ng/mL <50 medMATCH Codeine CONSISTENT NRG Hydrocodone NEGATIVE ng/mL <50 medMATCH Hydrocodone CONSISTENT NRG Hydromorphone NEGATIVE ng/mL <50 medMATCH Hydromorphone CONSISTENT NRG Morphine NEGATIVE ng/mL <50 medMATCH Morphine CONSISTENT NRG Norhydrocodone NEGATIVE ng/mL <50 medMATCH Norhydrocodone CONSISTENT NRG Prescribed Drug 2 Alprazolam NRG Noroxycodone 2284 ng/mL <50 medMATCH Noroxycodone CONSISTENT NRG Oxycodone 3811 ng/mL <50 medMATCH Oxycodone CONSISTENT NRG Oxymorphone 1591 ng/mL <50 medMATCH Oxymorphone CONSISTENT NRG Barbiturates NEGATIVE ng/mL <300 medMATCH Barbiturates CONSISTENT NRG Methadone Metabolite NEGATIVE ng/mL <100 medMATCH Methadone Metab CONSISTENT NRG Phencyclidine NEGATIVE ng/mL <25 medMATCH Phencyclidine CONSISTENT NRG CMP - 02/20/19 17:23 GLUCOSE 94 mg/dL 65-99 UREA NITROGEN (BUN) 18 mg/dL 7-25 CREATININE 1.49 mg/dL 0.70-1.25 eGFR NON-AFR. SWISS 50 mL/min/1.73m2 > OR = 60 eGFR 58 mL/min/1.73m2 > OR = 60 BUN/CREATININE RATIO 12 (calc) 6-22 SODIUM 138 mmol/L 135-146 POTASSIUM 5.0 mmol/L 3.5-5.3 CHLORIDE 103 mmol/L 98-110 CARBON DIOXIDE 26 mmol/L 20-32 CALCIUM 9.5 mg/dL 8.6-10.3 PROTEIN, TOTAL 6.6 g/dL 6.1-8.1 ALBUMIN 3.9 g/dL 3.6-5.1 GLOBULIN 2.7 g/dL (calc) 1.9-3.7 ALBUMIN/GLOBULIN RATIO 1.4 (calc) 1.0-2. 5 BILIRUBIN, TOTAL 0.4 mg/dL 0.2-1.2 ALKALINE PHOSPHATASE 67 U/L 40-115 AST 17 U/L 10-35 ALT 11 U/L 9-46 Complete blood count (CBC) with automate d white blood cell (WBC) differential - 03/01/19 22:38 Blood leukocytes automated count (number/volume) 11.0 10*3/uL 4.3-11.0 Blood erythrocytes automated count (number/volume) 5.35 10*6/uL 4.35-5.85 Venous blood hemoglobin measurement (mass/volume) 15.0 g/dL 13.3-17.7 Blood hematocrit (volume fraction) 44 % 40-54 Automated erythrocyte mean corpuscular volume 82 [ foz_us] 80-99 Automated erythrocyte mean corpuscular h emoglobin (mass per erythrocyte) 28 pg 25-34 Automated erythrocyte mean corpuscular h emoglobin concentration measurement (mass/volume) 34 g/dL 32-36 Automated erythrocyte distribution width ratio 15. 2 % 10.0- 14.5 Automated blood platelet count (count/volume) 453 10*3/uL 130-400 Automated blood platelet mean volume measurement 9.9 [foz_us] 7.4-10.4 Automated blood neutrophils/100 leukocytes 60 % 42-75 Automated blood lymphocytes/100 leukocytes 18 % 12-44 Blood monocytes/100 leukocytes 17 % 0-12 Automated blood eosinophils/100 leukocytes 5 % 0-10 Automated blood basophils/100 leukocytes 1 % 0-10 Blood neutrophils automated count (number/volume) 6.6 10*3 1.8-7.8 Blood lymphocytes automated count (number/volume) 2.0 10*3 1.0-4.0 Blood monocytes automated count (number/volume) 1. 8 10*3 0.0-1.0 Automated eosinophil count 0.6 10*3/uL 0 .0-0.3 Automated blood basophil count (count/volume) 0.1 10*3/uL 0.0-0.1 Blood lactic acid measurement (moles/vol ume) - 03/01/19 22:38 Blood lactic acid measurement (moles/volume) 0.89 mmol/L 0.50-2.00 Comprehensive metabolic panel - 03/01/19 22:38 Serum or plasma sodium measurement (moles/volume) 144 mmol/L 135-145 Serum or plasma potassium measurement (moles/volume) 4.1 mmol/L 3.6-5.0 Serum or plasma chloride measurement (moles/volume) 106 mmol/L 98-107 Carbon dioxide 25 mmol/L 21-32 Serum or plasma anion gap determination (moles/volume) 13 mmol/L 5-14 Serum or plasma urea nitrogen measurement (mass/volume ) 21 mg/dL 7-18 Serum or plasma creatinine measurement (mass/volume) 1.45 mg/dL 0.60-1.30 Serum or plasma urea nitrogen/creatinine mass ratio 14 NRG Serum or plasma creatinine measurement w ith calculation of estimated glomerular filtration rate 50 NRG Serum or plasma glucose measurement (mass/volume) 103 mg/dL 70-105 Serum or plasma calcium measurement (mass/volume) 9.3 mg/dL 8.5-10.1 Serum or plasma total bilirubin measurement (mass/volu me) 0.3 mg/dL 0.1-1.0 Serum or plasma alkaline phosphatase javon surement (enzymatic activity/volume) 72 U/L 40-136 Serum or plasma aspartate aminotransfera se measurement (enzymatic activity/volume) 12 U/L 5-34 Serum or plasma alanine aminotransferase measurement (enzymatic activity/volume) 14 U/L 0-55 Serum or plasma protein measurement (mass/volume) 6.5 g/dL 6.4-8.2 Serum or plasma albumin measurement (mass/volume) 3.9 g/dL 3.2-4.5 CALCIUM CORRECTED 9.4 mg/dL 8.5-10.1 Serum or plasma C reactive protein measu rement (mass/volume) - 03/01/19 22:38 Serum or plasma C reactive protein measurement (mass/v olume) 1.99 mg/dL 0.00-0.50 Bacterial blood culture - 03/01/19 22:38 Bacterial blood culture NG NRG Bacterial blood culture - 03/01/19 22:55 Bacterial blood culture NG NRG Complete blood count (CBC) with automate d white blood cell (WBC) differential - 03/09/19 16:55 Blood leukocytes automated count (number/volume) 9.6 10*3/uL 4.3-11.0 Blood erythrocytes automated count (number/volume) 5.49 10*6/uL 4.35-5.85 Venous blood hemoglobin measurement (mass/volume) 15.3 g/dL 13.3-17.7 Blood hematocrit (volume fraction) 45 % 40-54 Automated erythrocyte mean corpuscular volume 81 [ foz_us] 80-99 Automated erythrocyte mean corpuscular h emoglobin (mass per erythrocyte) 28 pg 25-34 Automated erythrocyte mean corpuscular h emoglobin concentration measurement (mass/volume) 34 g/dL 32-36 Automated erythrocyte distribution width ratio 15. 3 % 10.0- 14.5 Automated blood platelet count (count/volume) 494 10*3/uL 130-400 Automated blood platelet mean volume measurement 9.2 [foz_us] 7.4-10.4 Automated blood neutrophils/100 leukocytes 49 % 42-75 Automated blood lymphocytes/100 leukocytes 31 % 12-44 Blood monocytes/100 leukocytes 16 % 0-12 Automated blood eosinophils/100 leukocytes 4 % 0-10 Automated blood basophils/100 leukocytes 0 % 0-10 Blood neutrophils automated count (number/volume) 4.7 10*3 1.8-7.8 Blood lymphocytes automated count (number/volume) 3.0 10*3 1.0-4.0 Blood monocytes automated count (number/volume) 1. 5 10*3 0.0-1.0 Automated eosinophil count 0.4 10*3/uL 0 .0-0.3 Automated blood basophil count (count/volume) 0.0 10*3/uL 0.0-0.1 Comprehensive metabolic panel - 03/09/19 16:55 Serum or plasma sodium measurement (moles/volume) 141 mmol/L 135-145 Serum or plasma potassium measurement (moles/volume) 3.8 mmol/L 3.6-5.0 Serum or plasma chloride measurement (moles/volume) 102 mmol/L 98-107 Carbon dioxide 26 mmol/L 21-32 Serum or plasma anion gap determination (moles/volume) 13 mmol/L 5-14 Serum or plasma urea nitrogen measurement (mass/volume ) 16 mg/dL 7-18 Serum or plasma creatinine measurement (mass/volume) 1.25 mg/dL 0.60-1.30 Serum or plasma urea nitrogen/creatinine mass ratio 13 NRG Serum or plasma creatinine measurement w ith calculation of estimated glomerular filtration rate 59 NRG Serum or plasma glucose measurement (mass/volume) 107 mg/dL 70-105 Serum or plasma calcium measurement (mass/volume) 9.1 mg/dL 8.5-10.1 Serum or plasma total bilirubin measurement (mass/volu me) 0.2 mg/dL 0.1-1.0 Serum or plasma alkaline phosphatase javon surement (enzymatic activity/volume) 71 U/L 40-136 Serum or plasma aspartate aminotransfera se measurement (enzymatic activity/volume) 14 U/L 5-34 Serum or plasma alanine aminotransferase measurement (enzymatic activity/volume) 12 U/L 0-55 Serum or plasma protein measurement (mass/volume) 6.7 g/dL 6.4-8.2 Serum or plasma albumin measurement (mass/volume) 3.7 g/dL 3.2-4.5 CALCIUM CORRECTED 9.3 mg/dL 8.5-10.1 TROPONIN T - 03/09/19 16:55 TROPONIN T 24 % <=15 PT panel in platelet poor plasma by coag ulation assay - 03/09/19 16:55 Prothrombin time (PT) in platelet poor plasma by coagu lation assay 12.9 s 12.2-14.7 INR in platelet poor plasma or blood by coagulation as say 0.9 0.8-1.4 PROBNP FS - 03/09/19 16:55 PROBNP FS 702.9 pg/mL <75.0 THYROID STIMULATING HORMONE - 03/09/19 1 6:55 THYROID STIMULATING HORMONE 3.63 u[iU]/mL 0.35-4.94 Cardiac Panel - 03/20/19 18:10 CK 99 U/L 26-174 CK-MB 1.0 ng/ml 0.0-9.2 Myoglobin 57.8 ng/ml 1.6-154.9 Troponin 0.028 ng/mL 0.000-0.400 Complete blood count (CBC) with automate d white blood cell (WBC) differential - 04/10/19 20:12 Blood leukocytes automated count (number/volume) 10.1 10*3/uL 4.3-11.0 Blood erythrocytes automated count (number/volume) 5.60 10*6/uL 4.35-5.85 Venous blood hemoglobin measurement (mass/volume) 15.4 g/dL 13.3-17.7 Blood hematocrit (volume fraction) 46 % 40-54 Automated erythrocyte mean corpuscular volume 83 [ foz_us] 80-99 Automated erythrocyte mean corpuscular h emoglobin (mass per erythrocyte) 28 pg 25-34 Automated erythrocyte mean corpuscular h emoglobin concentration measurement (mass/volume) 33 g/dL 32-36 Automated erythrocyte distribution width ratio 15. 0 % 10.0- 14.5 Automated blood platelet count (count/volume) 490 10*3/uL 130-400 Automated blood platelet mean volume measurement 9.4 [foz_us] 7.4-10.4 Automated blood neutrophils/100 leukocytes 56 % 42-75 Automated blood lymphocytes/100 leukocytes 26 % 12-44 Blood monocytes/100 leukocytes 13 % 0-12 Automated blood eosinophils/100 leukocytes 4 % 0-10 Automated blood basophils/100 leukocytes 1 % 0-10 Blood neutrophils automated count (number/volume) 5.7 10*3 1.8-7.8 Blood lymphocytes automated count (number/volume) 2.6 10*3 1.0-4.0 Blood monocytes automated count (number/volume) 1. 3 10*3 0.0-1.0 Automated eosinophil count 0.4 10*3/uL 0 .0-0.3 Automated blood basophil count (count/volume) 0.1 10*3/uL 0.0-0.1 Comprehensive metabolic panel - 04/10/19 20:12 Serum or plasma sodium measurement (moles/volume) 139 mmol/L 135-145 Serum or plasma potassium measurement (moles/volume) 4.2 mmol/L 3.6-5.0 Serum or plasma chloride measurement (moles/volume) 100 mmol/L 98-107 Carbon dioxide 26 mmol/L 21-32 Serum or plasma anion gap determination (moles/volume) 13 mmol/L 5-14 Serum or plasma urea nitrogen measurement (mass/volume ) 15 mg/dL 7-18 Serum or plasma creatinine measurement (mass/volume) 1.30 mg/dL 0.60-1.30 Serum or plasma urea nitrogen/creatinine mass ratio 12 NRG Serum or plasma creatinine measurement w ith calculation of estimated glomerular filtration rate 56 NRG Serum or plasma glucose measurement (mass/volume) 127 mg/dL 70-105 Serum or plasma calcium measurement (mass/volume) 9.4 mg/dL 8.5-10.1 Serum or plasma total bilirubin measurement (mass/volu me) 0.4 mg/dL 0.1-1.0 Serum or plasma alkaline phosphatase javon surement (enzymatic activity/volume) 79 U/L 40-136 Serum or plasma aspartate aminotransfera se measurement (enzymatic activity/volume) 23 U/L 5-34 Serum or plasma alanine aminotransferase measurement (enzymatic activity/volume) 18 U/L 0-55 Serum or plasma protein measurement (mass/volume) 7.3 g/dL 6.4-8.2 Serum or plasma albumin measurement (mass/volume) 4.1 g/dL 3.2-4.5 CALCIUM CORRECTED 9.3 mg/dL 8.5-10.1 Magnesium - 04/10/19 20:12 Magnesium 2.3 mg/dL 1.8-2.4 Serum or plasma troponin i.cardiac measu rement (mass/volume) - 04/10/19 20:12 Serum or plasma troponin i.cardiac measurement (mass/v olume) < ng/mL <0.30 PROBNP FS - 04/10/19 20:12 PROBNP FS 545.3 pg/mL <75.0 Fibrin D-dimer FEU measurement in platel et poor plasma (mass/volume) - 04/10/19 20:21 Fibrin D-dimer FEU measurement in platelet poor plasma (mass/volume) 0.44 ug/mL 0.00-0.49 Cardiac Panel - 05/19/19 04:03 CK 220 U/L 26-174 CK-MB 0.9 ng/ml 0.0-9.2 Myoglobin 112.7 ng/ml 1.6-154.9 Troponin 0.030 ng/mL 0.000-0.400 Ehrlichia Ab Panel - 05/19/19 04:53 E. chaffeensis (HME) IgG Titer Negative Neg:<1:64 E. chaffeensis (HME) IgM Titer Negative Neg:<1:20 HGE IgG Titer Negative Neg:<1:64 HGE IgM Titer Negative Neg:<1:20 Lyme Ab/Western Blot Reflex - 05/19/19 0 4:53 Lyme IgG/IgM Ab <0.91 ISR 0.00-0.90 Lyme Disease Ab, Quant, IgM <0.80 index 0.00-0.79 Jannet Mtn Spotted Fev, IgG, Qn - 9 04:53 RMSF, IgG, EIA Positive Negative RMSF, IgG, IFA - 05/19/19 04:53 RMSF, IgG, IFA 1:64 Neg <1:64 Jannet Mtn Spotted Fever, IgM - 05/19/19 04:53 Jannet Ctn Spotted Fever, IgM 0.25 index 0.00-0.89 Francisella tularensis Abs - 05/19/19 04 :53 Francisella tularensis IgG Negative Neg ative Francisella tularensis IgM Negative Neg ative Ehrlichia Ab Panel - 05/19/19 04:53 E. CHAFFEENSIS (HME) IGG TITER NEGATIVE NEG:<1:64 E. CHAFFEENSIS (HME) IGM TITER NEGATIVE NEG:<1:20 HGE IGG TITER NEGATIVE NEG:<1:64 HGE IGM TITER NEGATIVE NEG:<1:20 Jannet Ctn Spotted Fev,IgG - 05/19/19 04: 53 RMSF, IGG, EIA POSITIVE NEGATIVE RMSF, IGG, IFA 1:64 NEG <1:64 Ajnnet Ctn Spotted Fever, IgM - 05/19/19 04:53 JANNET CON SPOTTED FEVER, IGM 0.25 INDEX 0.00-0.89 Francisella tularensis Antibody IFA - 04:53 FRANCISELLA TULARENSIS IGG NEGATIVE NEG ATIVE FRANCISELLA TULARENSIS IGM NEGATIVE NEG ATIVE BMP - 05/27/19 18:34 Anion Gap 13 6-14 BUN 18 mg/dL 5-25 Calcium 9.4 mg/dL 8.3-10.4 Chloride 107 mmol/L 95-114 CO2 23 mEq/L 22-33 Creat 1.13 mg/dL 0.50-1.50 eGFR 66 mL/min/1.73m2 >59 Glucose 85 mg/dL 70-110 Osmo 288 280-295 Potassium 3.9 mmol/L 3.5-5.3 Sodium 139 mmol/L 134-148 Urinalysis - 05/27/19 19:40 Icotest N/A Negative Urine Volume Urine Volume Sufficient (10mL) Urine Yeast No Yeast present Urine-Appearance Slightly Cloudy Clear Urine-Bacteria Negative Urine-Bilirubin Negative Negative Urine-Blood Negative Negative Urine-Color Yellow Colorless-Lt. [place] ow Urine-Epithelial Cells 0-5/HPF Urine-Glucose Negative Negative Urine-Ketones Negative Negative Urine-Leukocytes Negative Negative Urine-Mucus 1+ Urine-Nitrite Negative Negative Urine-Other Urine Saved if Culture Need ed (48hrs from time of collection) Urine-pH 6.0 5-8.5 Urine-Protein Trace Negative Urine-RBC 0-2/HPF Urine-Specific [place] 1.015 1.000-1 .030 Urine-WBC 0-2/HPF Urobilinogen 0.2 0.2-1.0 Complete blood count (CBC) with automate d white blood cell (WBC) differential - 05/29/19 14:01 Blood leukocytes automated count (number/volume) 7.3 10*3/uL 4.3-11.0 Blood erythrocytes automated count (number/volume) 4.98 10*6/uL 4.35-5.85 Venous blood hemoglobin measurement (mass/volume) 13.8 g/dL 13.3-17.7 Blood hematocrit (volume fraction) 41 % 40-54 Automated erythrocyte mean corpuscular volume 83 [ foz_us] 80-99 Automated erythrocyte mean corpuscular h emoglobin (mass per erythrocyte) 28 pg 25-34 Automated erythrocyte mean corpuscular h emoglobin concentration measurement (mass/volume) 33 g/dL 32-36 Automated erythrocyte distribution width ratio 15. 4 % 10.0- 14.5 Automated blood platelet count (count/volume) 518 10*3/uL 130-400 Automated blood platelet mean volume measurement 9.7 [foz_us] 7.4-10.4 Automated blood neutrophils/100 leukocytes 64 % 42-75 Automated blood lymphocytes/100 leukocytes 18 % 12-44 Blood monocytes/100 leukocytes 12 % 0-12 Automated blood eosinophils/100 leukocytes 3 % 0-10 Automated blood basophils/100 leukocytes 1 % 0-10 Blood neutrophils automated count (number/volume) 4.7 10*3 1.8-7.8 Blood lymphocytes automated count (number/volume) 1.3 10*3 1.0-4.0 Blood monocytes automated count (number/volume) 0. 9 10*3 0.0-1.0 Automated eosinophil count 0.2 10*3/uL 0 .0-0.3 Automated blood basophil count (count/volume) 0.1 10*3/uL 0.0-0.1 Comprehensive metabolic panel - 05/29/19 14:01 Serum or plasma sodium measurement (moles/volume) 141 mmol/L 135-145 Serum or plasma potassium measurement (moles/volume) 4.0 mmol/L 3.6-5.0 Serum or plasma chloride measurement (moles/volume) 102 mmol/L 98-107 Carbon dioxide 26 mmol/L 21-32 Serum or plasma anion gap determination (moles/volume) 13 mmol/L 5-14 Serum or plasma urea nitrogen measurement (mass/volume ) 13 mg/dL 7-18 Serum or plasma creatinine measurement (mass/volume) 1.14 mg/dL 0.60-1.30 Serum or plasma urea nitrogen/creatinine mass ratio 11 NRG Serum or plasma creatinine measurement w ith calculation of estimated glomerular filtration rate > NRG Serum or plasma glucose measurement (mass/volume) 111 mg/dL 70-105 Serum or plasma calcium measurement (mass/volume) 9.5 mg/dL 8.5-10.1 Serum or plasma total bilirubin measurement (mass/volu me) 0.3 mg/dL 0.1-1.0 Serum or plasma alkaline phosphatase javon surement (enzymatic activity/volume) 73 U/L 40-136 Serum or plasma aspartate aminotransfera se measurement (enzymatic activity/volume) 15 U/L 5-34 Serum or plasma alanine aminotransferase measurement (enzymatic activity/volume) 14 U/L 0-55 Serum or plasma protein measurement (mass/volume) 6.9 g/dL 6.4-8.2 Serum or plasma albumin measurement (mass/volume) 3.8 g/dL 3.2-4.5 CALCIUM CORRECTED 9.7 mg/dL 8.5-10.1 Serum or plasma troponin i.cardiac measu rement (mass/volume) - 05/29/19 14:01 Serum or plasma troponin i.cardiac measurement (mass/v olume) 0.36 ng/mL <0.30 PROBNP FS - 05/29/19 14:01 PROBNP FS 2132.0 pg/mL <75.0 PDM - 09 PANEL (PROFILE 1) - 06/13/19 10 :17 Prescribed Drug 1 Oxycodone NRG Creatinine 173.3 mg/dL > or = 20.0 pH 6.0 4.5-9.0 Oxidant NEGATIVE mcg/mL <200 Amphetamines NEGATIVE ng/mL <500 medMATCH Amphetamines CONSISTENT NRG Benzodiazepines POSITIVE ng/mL <100 Marijuana Metabolite NEGATIVE ng/mL <20 medMATCH Marijuana Metab CONSISTENT NRG Cocaine Metabolite NEGATIVE ng/mL <150 medMATCH Cocaine Metab CONSISTENT NRG Opiates NEGATIVE CONFIRMED ng/mL <100 Oxycodone POSITIVE ng/mL <100 COMMENT NRG Alphahydroxyalprazolam 223 ng/mL <25 medMATCH aOH alprazolam CONSISTENT NRG Alphahydroxymidazolam NEGATIVE ng/mL < 50 medMATCH aOH midazolam CONSISTENT NRG Alphahydroxytriazolam NEGATIVE ng/mL < 50 medMATCH aOH triazolam CONSISTENT NRG Aminoclonazepam NEGATIVE ng/mL <25 medMATCH Aminoclonazepam CONSISTENT NRG Hydroxyethylflurazepam NEGATIVE ng/mL <50 medMATCH OH,Et flurazepam CONSISTENT NR G Lorazepam NEGATIVE ng/mL <50 medMATCH Lorazepam CONSISTENT NRG Nordiazepam NEGATIVE ng/mL <50 medMATCH Nordiazepam CONSISTENT NRG Oxazepam NEGATIVE ng/mL <50 medMATCH Oxazepam CONSISTENT NRG Temazepam NEGATIVE ng/mL <50 medMATCH Temazepam CONSISTENT NRG Codeine NEGATIVE ng/mL <50 medMATCH Codeine CONSISTENT NRG Hydrocodone NEGATIVE ng/mL <50 medMATCH Hydrocodone CONSISTENT NRG Hydromorphone NEGATIVE ng/mL <50 medMATCH Hydromorphone CONSISTENT NRG Morphine NEGATIVE ng/mL <50 medMATCH Morphine CONSISTENT NRG Norhydrocodone NEGATIVE ng/mL <50 medMATCH Norhydrocodone CONSISTENT NRG Prescribed Drug 2 Alprazolam NRG Noroxycodone 1800 ng/mL <50 medMATCH Noroxycodone CONSISTENT NRG Oxycodone 786 ng/mL <50 medMATCH Oxycodone CONSISTENT NRG Oxymorphone 991 ng/mL <50 medMATCH Oxymorphone CONSISTENT NRG Barbiturates NEGATIVE ng/mL <300 medMATCH Barbiturates CONSISTENT NRG Methadone Metabolite NEGATIVE ng/mL <100 medMATCH Methadone Metab CONSISTENT NRG Phencyclidine NEGATIVE ng/mL <25 medMATCH Phencyclidine CONSISTENT NRG Lipase - 10/10/19 19:03 Lipase 9 U/L 7-59 Encounters ACCT No. Visit Date/Time Discharge Status Pt. Type Provider Facility Loc./Unit Complaint [id number] 01/08/2017 10:09:00 Document Registration [id number] 11/09/2019 14:00:00 020 15:54:00 DIS Outpatient LEEANNA DRAPER, FLACO Verma [facility] ER FS CHEST PAIN [id number] 05/29/2019 13:31:00 01:57:00 DIS Outpatient NELLY POST DO [facility] ER FS CHEST PAIN [id number] 04/10/2019 20:06:00 21:58:00 DIS Emergency JOSE TAVERAS DO [facility] ER FS FEELS WEAK, CHEST PAIN, SOB [id number] 03/09/2019 16:33:00 18:40:00 DIS Outpatient NELLY POST DO [facility] ER FS HIGH HEART RATE [id number] 03/01/2019 21:54:00 23:36:00 DIS Emergency LARRY DRAPER, MUNDO Lawson [facility] ER R ARM RASH [id number] 03/01/2019 11:23:00 12:17:00 DIS Outpatient ZAIRA DRAPER, TERESA Caal [facility] ER FS ABSCESS [id number] 01/06/2019 15:50:00 16:25:00 DIS Emergency NELLY POST DO [facility] ER FS POST OP WEAKNESS [id number] 10/12/2018 19:36:00 15:26:00 DIS Inpatient NIC LÓPEZ MD [facility] ICU AFIB W RVR AND CP [id number] 10/04/2018 10:11:00 23:59:59 CLS Outpatient EMILIE BANEGAS APRN [facility] LAB I10 [id number] 10/04/2018 10:08:00 23:59:59 CLS Outpatient JEOVANNY JAMES MD [facility] LAB SEE ORDER [id number] 09/05/2018 00:11:00 23:59:59 CLS Preadmit CARRINGTON GARAY [facility] CR3 CARDIAC REHAB P HASE III [id number] 08/05/2018 08:18:00 00:01:00 DIS Outpatient CARRINGTON GARAY [facility] CR3 CARDIAC REHAB P HASE III [id number] 08/23/2018 10:33:00 018 23:59:59 CLS Outpatient EMILIE BANEGAS APRN [facility] RAD ELEVATED TSH,THYROID T ENDERNESS [id number] 08/03/2018 07:26:00 018 00:01:00 DIS Outpatient CARRINGTON GARAY TOOL CHECKER [facility] CR3 CARDIAC REHAB P HASE III [id number] 06/24/2018 12:24:00 018 23:59:59 CLS Outpatient JEOVANNY JAMES MD [facility] LAB B18.2 [id number] 02/18/2018 08:28:00 018 23:59:59 CLS Outpatient EMILIE BANEGAS APRN [facility] RAD GROIN PAIN,HERNIA [id number] 11/12/2017 11:37:00 018 23:59:59 CLS Outpatient JEOVANNY JAMES MD [facility] LAB B18.2 [id number] 11/09/2017 11:00:00 018 23:59:59 CLS Preadmit EMILIE BANEGAS APRN [facility] RAD NECK PAIN,LOW BACK PAIN [id number] 10/07/2017 08:00:00 018 23:59:59 CLS Preadmit Kitty PATTERSON MD [facility] CARD R07.9 CHEST PAIN [id number] 09/25/2017 20:08:00 018 21:54:00 DIS Emergency SIVA MAHI MELCHOR [facility] ER CP [id number] 09/24/2017 04:14:00 018 16:25:00 DIS Inpatient JUAN MANUEL EVANS DO [facility] ICU A-FIB [id number] 09/01/2017 21:13:00 017 23:09:00 DIS Emergency SIVA MAHI MELCHOR K [facility] ER LEG CRAMPS;CHEST PAIN;B LOOD CLOTS [id number] 08/21/2017 08:27:00 017 13:45:00 DIS Inpatient JUAN MANUEL EVANS DO, [facility] 4TH PE,HYPOXIA [id number] 07/14/2017 09:27:00 017 13:45:00 DIS Outpatient IMMANUEL FRANCO MD [facility] ENDO ABD. PAIN/HX DIVERTICUL ITIS [id number] 07/12/2017 05:37:00 017 13:22:00 DIS Outpatient IMMANUEL FRANCO MD [facility] PREOP ABD. PAIN/HX DIVERTICUL ITIS [id number] 06/28/2017 20:15:00 017 21:29:00 DIS Emergency TERESA MENESES MD [facility] ER ABD PAIN/PASSING BLOOD IN STOOL [id number] 06/27/2017 19:26:00 017 22:19:00 DIS Emergency SAJAN CRUZ MD [facility] ER AB PAIN [id number] 05/13/2017 11:16:00 017 23:59:59 CLS Preadmit NAHOMI FLORES MD [facility] RAD MASS OF SINUS [id number] 02/16/2015 22:13:00 015 12:04:00 DIS Inpatient GILES CHRISTIANSON MD [facility] CSD TACHYCARDIA [id number] 01/17/2020 17:23:[address] Emergency KACY MARC MD [facility] ER FS CHEST PAIN [id number] 11/25/2018 11:02:00 Document Registration [id number] 11/22/2017 10:40:00 Document Registration [id number] 02/18/2015 08:22:00 Document Registration [id number] 02/18/2015 08:21:00 Document Registration [id number] 02/18/2015 08:21:00 Document Registration [id number] 02/18/2015 08:21:00 Document Registration [id number] 09/20/2011 01:05:00 Document Registration [id number] 09/06/2011 00:55:00 Document Registration [id number] 04/10/2011 10:45:00 Document Registration [id number] 02/23/2011 16:44:00 Document Registration [id number] 02/21/2011 17:19:00 Document Registration [id number] 02/21/2011 08:45:00 Document Registration [id number] 02/14/2011 14:03:00 Document Registration [id number] 02/01/2011 20:31:00 Document Registration [id number] 10/29/2010 19:11:00 Document Registration [id number] 02/11/2010 06:03:00 Document Registration [id number] 05/24/2019 14:09:00 Document Registration [id number] 11/24/2018 04:35:00 [facility] 09:20:00 DIS Emergency FREDERICK CASAREZ DO [facility] ER FS HEADACHE [id number] 01/03/2020 15:10:00 01/03/2020 23:59:5 9 CLS Outpatient NIKKI [facility] [id number] 06/13/2019 10:15:00 Document Registration [id number] 02/20/2019 17:20:00 Document Registration [id number] 02/08/2019 14:00:00 Document Registration [id number] 05/24/2019 15:09:00 Document Registration [id number] 05/30/2019 10:10:00 Document Registration [id number] 12/21/2014 14:36:00 12/21/2014 23:59: 59 CLS Outpatient SHERRON VIRGEN DO [id number] 11/05/2014 10:03:00 11/05/2014 23:59: 59 CLS Outpatient SHERRON VIRGEN DO [id number] 11/05/2014 09:04:00 11/05/2014 23:59: 59 CLS Outpatient OLIVIA AUGUSTINE [id number] 09/27/2014 12:57:00 09/27/2014 23:59: 59 CLS Outpatient SHERRON VIRGEN DO [id number] 08/22/2014 08:19:00 08/22/2014 23:59: 59 CLS Outpatient [facility] [id number] 08/20/2014 11:14:00 08/20/2014 23:59: 59 CLS Outpatient VIRGEN DOSHERRON [id number] 08/20/2014 10:45:00 08/20/2014 23:59: 59 CLS Outpatient VIRGEN DOSHERRON [id number] 07/23/2014 12:53:00 07/23/2014 23:59: 59 CLS Outpatient VIRGEN DOSHERRON [id number] 07/23/2014 12:53:00 07/23/2014 23:59: 59 CLS Outpatient VIRGEN DO, SHERRON Landa [id number] 06/21/2014 11:51:00 06/21/2014 23:59: 59 CLS Outpatient VIRGEN DOSHERRON [id number] 06/20/2014 09:06:00 06/20/2014 23:59: 59 CLS Outpatient VIRGEN DOSHERRON [id number] 06/05/2014 11:28:00 06/05/2014 23:59: 59 CLS Outpatient VIRGEN DOSHERRON [id number] 05/08/2014 13:37:00 05/08/2014 23:59: 59 CLS Outpatient VIRGEN DO, SHERRON Landa [id number] 04/11/2014 12:20:00 04/11/2014 23:59: 59 CLS Outpatient VIRGEN DOSHERRON [id number] 03/12/2014 09:18:00 03/12/2014 23:59: 59 CLS Outpatient VIRGEN DOSHERRON [id number] 02/19/2014 08:24:00 02/19/2014 23:59: 59 CLS Outpatient MADL [facility]IST[facility] COACHRYAN Vanessa [id number] 02/13/2014 08:48:00 02/13/2014 23:59: 59 CLS Outpatient VIRGEN DOSHERRON Syeda [id number] 12/12/2013 16:22:00 12/12/2013 23:59: 59 CLS Outpatient MICHELE [facility]IST[facility] COACH BRENNEN JAUN [id number] 10/04/2013 09:47:00 10/04/2013 23:59: 59 CLS Outpatient MICHELE ASSIST[facility] [employer] 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, BRENNEN JAUN [id number] 01/23/2013 11:08:00 01/23/2013 23:59: 59 CLS Outpatient MICHELE ASSIST[facility] BRENNEN JAUN [id number] 09/06/2012 10:35:00 09/06/2012 23:59: 59 CLS Outpatient BRENNEN MICHELE APRN [id number] 04/08/2012 09:14:00 04/08/2012 23:59:5 9 CLS Outpatient [id number] 01/10/2013 11:04:00 Document Registration [id number] 10/10/2019 18:31:00 10/10/2019 20:07 :00 DIS Outpatient Yanira [facility] ER [id number] 05/29/2019 12:35:00 05/29/2019 12:35: 00 DIS Outpatient Yanira [place] [id number] 05/27/2019 17:58:00 05/27/2019 20:50: 00 DIS Outpatient Yanira [facility] ER [id number] 05/19/2019 03:52:00 05/19/2019 06:15: 00 DIS Outpatient ROSENDA [facility] ER [id number] 03/20/2019 17:55:00 03/20/2019 20:08: 00 DIS Outpatient Yanira [facility] ER [id number] 02/03/2019 17:01:00 02/03/2019 19:16: 00 DIS Outpatient Yanira [facility] ER [id number] 08/05/2018 14:25:00 08/06/2018 08:30: 00 DIS Outpatient Eduardo Champagne [facility] ER [id number] 06/28/2017 21:46:00 06/29/2017 02:10: 00 DIS Outpatient ROSITA WATKINS [id number] 06/28/2017 23:55:46 Document Registration
--- NOTE | 2020-01-17 19:45 | NUR ---
EMS CALLED FOR TRANSPORT
[2020-01-17 20:00] VITALS: BP 124/84
== END 2020-01-17 20:05 | disposition short-term general hospital (02) ==
LOC: EDUNIT# 17:22 → ER FS 17:23
DX: I48.91 Unspecified atrial fibrillation (principal); I48.92 Unspecified atrial flutter; I25.10 Atherosclerotic heart disease of native coronary artery without angina pectoris; G40.909 Epilepsy, unspecified, not intractable, without status epilepticus; B19.20 Unspecified viral hepatitis C without hepatic coma; N40.0 Benign prostatic hyperplasia without lower urinary tract symptoms; Z87.19 Personal history of other diseases of the digestive system; M19.91 Primary osteoarthritis, unspecified site; E03.9 Hypothyroidism, unspecified; Z85.038 Personal history of other malignant neoplasm of large intestine; F41.9 Anxiety disorder, unspecified; F32.9 Major depressive disorder, single episode, unspecified; Z86.711 Personal history of pulmonary embolism; Z87.891 Personal history of nicotine dependence; Z79.899 Other long term (current) drug therapy
CPT/HCPCS: 36415; 71045; 80053; 83735; 83880; 84484; 85025; 85610; 85730; 93005

== ENCOUNTER 2020-02-20 19:27 | Emergency (ER) | payer MEDICAID ==
[~2020-02-20] VITALS: Ht 182.8 cm; Wt 93.1 kg
--- NOTE | 2020-02-20 19:56 | ED Chest Pain ---
General Chief Complaint: Chest Pain Stated Complaint: CHEST PAIN Source: patient Exam Limitations: no limitations History of Present Illness Date Seen by Provider: Feb 20, 2020 Time Seen by Provider: 19:30 Initial Comments Patient presents ER by private conveyance with chief complaint of chest pain. He has a history of atrial fibrillation status post 2 ablations by cardiology at [facility]. Most recent ablation was June 2019. He is always in atrial ablation and on Eliquis. He takes dofetilide 125 mg twice a day. He has chest pain substernal starting about 1600. Take his schedule heart meds but nothing else. He has a mild headache which he usually treats with his oxycodone at home but he has not taken any recently. He says he does not want anything for it right now. He's having no nausea, radiation of pain, sweats, jaw pain numbness or tingling. No history of heart attacks or coronary disease. Follows with Nae Navarrete nurse practitioner locally at [facility]. No shortness of breath, recent travel, sick contacts or fever. Coronary angiogram in September [address] Wilder: Type II myocardial infarction likely secondary to rapid atrial fibrillation. Moderate first item disease with patent rest of the coronary arteries. Increased left ventricular end-diastolic pressure suggesting diastolic dysfunction. Echocardiogram by Dr. Wilder September 2018: EF of 55-65%. Left ventricular diastolic function parameters are normal. Allergies and Home Medications Allergies Coded Allergies: No Known Drug Allergies (Verified , 03/01/19) Home Medications Alprazolam 1 Mg Tablet, 1 MG PO TID PRN for ANXIETY, (Reported) Apixaban 5 Mg Tablet, 5 MG PO BID, (Reported) Diltiazem HCl 120 Mg Cap.er.24h, 120 MG PO 0500, (Reported) Dronedarone HCl 400 Mg Tablet, 400 MG PO BID Prescribed by: NIC LÓPEZ on 10/14/182020 Levothyroxine Sodium 25 Mcg Tablet, 25 MCG PO DAILY, (Reported) Oxycodone HCl 5 Mg Tablet, 5 MG PO QID PRN for PAIN-SEVERE, (Reported) Oxycodone HCl/Acetaminophen 1 Each Tablet, 1 TAB PO Q6H PRN for BREAKTHROUGH PAIN Prescribed by: TERESA MENESES on 03/01/19 1214 Oxycodone HCl/Acetaminophen 1 Each Tablet, 1-2 TAB PO Q4H PRN for PAIN-MODERATE Prescribed by: MUNDO SCHAFFER on 03/01/19 8832 Patient Home Medication List Home Medication List Reviewed: Yes Review of Systems Review of Systems Constitutional: No chills, No fever EENTM: No Blurred Vision, No Double Vision Respiratory: Denies Cough, Denies Shortness of Air Cardiovascular: See HPI, Chest Pain; Denies Edema; Irregular Heart Rate Gastrointestinal: Denies Abdomen Distended, Denies Abdominal Pain Genitourinary: Denies Burning, Denies Discharge Musculoskeletal: No back pain, No joint swelling Skin: No change in color, No dryness, No hx of skin cancer Psychiatric/Neurological: Headache; Denies Numbness, Denies Paresthesia All Other Systems Reviewed Negative Unless Noted: Yes Past Nxcsvgs-Miguhi-Ivyepe Hx Patient Social History Alcohol Use: Denies Use Recreational Drug Use: No Smoking Status: Former Smoker Type Used: Cigarettes Former Smoker, Quit: Jul 12, 1985 2nd Hand Smoke Exposure: No Recent Foreign Travel: No Contact w/Someone Who Travel: No Recent Hopitalizations: No Immunizations Up To Date Tetanus Booster (TDap): Unknown Date of Pneumonia Vaccine: Jul 21, 2018 Date of Influenza Vaccine: Jul 21, 2018 Seasonal Allergies Seasonal Allergies: No Past Medical History Surgeries: Yes (Cardiac Ablation May 2019 at [facility]) Appendectomy Respiratory: No Pulmonary Embolism Cardiac: Yes Atrial Fibrillation, High Cholesterol, Hypertension, Irregular Heartbeat Neurological: No Headaches /Migraines Reproductive Disorders: No Sexually Transmitted Disease: Yes (Hep C: treated) HIV/AIDS: No Genitourinary: No Prostate Problems Gastrointestinal: No Diverticulosis, Hemorrhoids Musculoskeletal: No Arthritis Endocrine: Yes Hypothyroidsim HEENT: No Loss of Vision: Denies Hearing Impairment: Denies Cancer: No Colon Did You Recieve Any Treatments: Yes What Type of Treatment Did You: Surgical Intervention Psychosocial: No Anxiety, Depression Integumentary: No Blood Disorders: No Adverse Reaction/Blood Tranf: No Family Medical History Heart Disease, Hypertension Physical Exam Vital Signs Vital Signs - First Documented 02/20/20 02/20/20 02/20/20 19:40 19:48 20:45 Temp 36.6 Pulse 145 Resp 16 B/P (MAP) 121/82 (95) Pulse Ox 96 O2 Delivery Room Air O2 Flow Rate 2.00 Capillary Refill : Height, Weight, BMI Height: 6'0" Weight: 224lbs. 0oz. 101.090097kv; 29.00 BMI Method:Stated General Appearance: WD/WN, Mild Distress HEENT: PERRL/EOMI, Pharynx Normal, Moist Mucous Membranes Neck: Full Range of Motion, Normal Inspection Respiratory: Chest Non Tender, Lungs Clear, Normal Breath Sounds, No Accessory Muscle Use, No Respiratory Distress Cardiovascular: No Edema, Normal Peripheral Pulses, Irregularly Irregular, Tachycardia (140-150) Gastrointestinal: Normal Bowel Sounds, Non Tender, Soft Neurologic/Psychiatric: Alert, Oriented x3, No Motor/Sensory Deficits Skin: Normal Color, Warm/Dry Progress/Results/Core Measures Results/Orders Lab Results Laboratory Tests Test 02/20/20 19:35 Range/Units White Blood Count 11.1 H 4.3-11.0 10^3/uL Red Blood Count 5.26 4.35-5.85 10^6/uL Hemoglobin 14.6 13.3-17.7 G/DL Hematocrit 43 40-54 % Mean Corpuscular Volume 82 80-99 FL Mean Corpuscular Hemoglobin 28 25-34 PG Mean Corpuscular Hemoglobin Concent 34 32-36 G/DL Red Cell Distribution Width 14.6 H 10.0-14.5 % Platelet Count 530 H 130-400 10^3/uL Mean Platelet Volume 10.1 7.4-10.4 FL Neutrophils (%) (Auto) 64 42-75 % Lymphocytes (%) (Auto) 20 12-44 % Monocytes (%) (Auto) 11 0-12 % Eosinophils (%) (Auto) 4 0-10 % Basophils (%) (Auto) 1 0-10 % Neutrophils # (Auto) 7.0 1.8-7.8 X 10^3 Lymphocytes # (Auto) 2.3 1.0-4.0 X 10^3 Monocytes # (Auto) 1.2 H 0.0-1.0 X 10^3 Eosinophils # (Auto) 0.5 H 0.0-0.3 10^3/uL Basophils # (Auto) 0.1 0.0-0.1 10^3/uL Prothrombin Time 13.7 12.2-14.7 SEC INR Comment 1.0 0.8-1.4 Activated Partial Thromboplast Time 26 24-35 SEC Sodium Level 142 135-145 MMOL/L Potassium Level 3.8 3.6-5.0 MMOL/L Chloride Level 104 98-107 MMOL/L Carbon Dioxide Level 23 21-32 MMOL/L Anion Gap 15 H 5-14 MMOL/L Blood Urea Nitrogen 17 7-18 MG/DL Creatinine 1.31 H 0.60-1.30 MG/DL Estimat Glomerular Filtration Rate 56 BUN/Creatinine Ratio 13 Glucose Level 105 70-105 MG/DL Calcium Level 9.5 8.5-10.1 MG/DL Corrected Calcium 9.5 8.5-10.1 MG/DL Magnesium Level 2.2 1.6-2.4 MG/DL Total Bilirubin 0.4 0.1-1.0 MG/DL Aspartate Amino Transf (AST/SGOT) 20 5-34 U/L Alanine Aminotransferase (ALT/SGPT) 14 0-55 U/L Alkaline Phosphatase 88 40-136 U/L Myoglobin 219.5 H 10.0-92.0 NG/ML Troponin I < 0.30 <0.30 NG/ML Pro-B-Type Natriuretic Peptide 1323.0 H <75.0 PG/ML Total Protein 7.0 6.4-8.2 GM/DL Albumin 4.0 3.2-4.5 GM/DL My Orders Orders - ZAIRA,TERESA J Cbc With Automated Diff (02/20/20 19:48) Magnesium (02/20/20 19:48) Chest 1 View Ap/Pa Only (02/20/20 19:48) Ekg Tracing (02/20/20 19:48) Comprehensive Metabolic Panel (02/20/20 19:48) Myoglobin Serum (02/20/20 19:48) Protime With Inr (02/20/20 19:48) Partial Thromboplastin Time (02/20/20 19:48) O2 (02/20/20 19:48) Monitor-Rhythm Ecg Trace Only (02/20/20 19:48) Aspirin Chewable Tablet (Baby Aspirin Ch (02/20/20 20:00) Ed Iv/Invasive Line Start (02/20/20 19:48) Troponin I Fs (02/20/20 19:48) Probnp Fs (02/20/20 19:48) Ed Iv/Invasive Line Start (02/20/20 19:48) Ns Iv 1000 Ml (Sodium Chloride 0.9%) (02/20/20 19:48) Diltiazem Drip Pre-Mix (Cardizem Drip Pr (02/20/20 20:00) Diltiazem Injection (Cardizem Injection) (02/20/20 20:00) Morphine Injection (Morphine Injection (02/20/20 20:18) Morphine Injection (Morphine Injection (02/20/20 20:20) Ua Culture If Indicated (02/20/20 20:37) Drug Screen Stat (Urine) (02/20/20 20:37) Enoxaparin Injection (Lovenox Injection) (02/20/20 21:00) Fibrin Degradation Products (02/20/20 21:00) Enoxaparin Injection (Lovenox Injection) (02/20/20 21:00) Ekg Tracing (02/20/20 21:05) Medications Given in ED Current Medications Medications Dose Ordered Sig/Janet Route Start Time Stop Time Status Last Admin Dose Admin Aspirin 324 mg ONCE ONCE PO 02/20/20 20:00 02/20/20 20:01 DC 02/20/20 20:10 324 MG Diltiazem HCl 10 mg ONCE ONCE IVP 02/20/20 20:00 02/20/20 20:01 DC 02/20/20 20:01 10 MG Enoxaparin Sodium 100 mg STK-MED ONCE .ROUTE 02/20/20 21:00 02/20/20 21:02 DC 02/20/20 21:03 90 MG Vital Signs/I&O 02/20/20 02/20/20 02/20/20 19:40 19:48 20:45 Temp 36.6 Pulse 145 Resp 16 B/P (MAP) 121/82 (95) Pulse Ox 96 97 O2 Delivery Room Air Room Air Nasal Cannula O2 Flow Rate 2.00 Progress Progress Note #1: Time: 19:54 Progress Note 10 mg Cardizem IV push followed by a bag of fluids and Cardizem drip. He is already on Eliquis so it would be okay for him to convert. There was a mild delay in obtaining the EKG as the first machine failed to operate correctly and we had to bring a second machine in but it's battery was so we had to find a cord. This added about 10 minutes to his care time. Plan is to rate control him and transfer him back to per his wishes since his media relations intern there. Last time he was there they discussed doing further procedures and he didn't want to do it at that time. He says today he would like to do another ablation if they offered. Four morphine IV for his pain. Progress Note #2: Time: 20:33 Progress Note After EKG was obtained and looks rather regular and could be A. fib RVR but could also be sinus tachycardia from? Dehydration, drugs, pain? We'll see what morphine does. We'll attempt to get a urinalysis and drug screen. Progress Note #3: Time: 20:45 Progress Note Rhythm on the EKGs looks pretty regular as well as on the monitor. Other dysrhythmia tachycardia with a narrow QRS? He denies it was dehydration because been mowing his grass and after a liter fluids he should've seen some improvement but it did nothing. He does not seem to be in acute heart failure based on chest x-ray and stable BNP. He has a stable blood pressure. He says he only drinks about one cup of coffee a day and denies use of any other stimulants or narcotics outside of his prescribed opiates and benzodiazepines. He doesn't have any review of systems or history to suggest infection but we are going to collect a urinalysis to rule out UTI. We'll also collect a urine drug screen to rule out stimulant narcotic use. He does have a history of blood clots. He is not anemic nor hypoxic. Pulmonary embolism could be the source of his symptoms. Would like to get a CT angiogram of his chest but he has a stated allergy to IV contrast dye. He says he takes his Eliquis. He'll largely unremarkable cardiac catheterization last year on record and he said he's had one since then and no stents or history of [place]. If his urine drug screen is neg ative for stimulants then a pulmonary embolism is a likely source of his tachycardia, chest pain and oxygen sats being on the lower end of normal so we'll plan to cover him with Lovenox. D Dimer. Initial ECG Impression Date: Feb 20, 2020 Initial ECG Impression Time: 19:49 Initial ECG Rate: 140 Initial ECG Rhythm: S.Tach Initial ECG Intervals: QT (458) Initial ECG Impression: Nonspecific Changes (sinus tachycardia) Initial ECG Comparisson: Unchanged Comment He has a history of Atrial fibrillation with rapid ventricular response but while no P waves can be seen the QRS complexes do appear to be regular no clinically relevant ST T-wave elevation or depression. A flutter with rapid ventricular response? EKG : EKG Time: 21:10 Rate: 140 Rhythm: A Fib/Flutter Intervals: QT (458) ECG Comparisson: Unchanged ECG Impression: Atrial Fibrillation w/RVR Comment Suspect atrial flutter with rapid ventricular response without clinically relevant ST changes. Diagnostic Imaging Diagonstic Imaging: Xray Plain Films/CT/US/NM/MRI: chest (1v) Comments NAME: JUAN CARLOS GAFFNEY [facility] REC#: [id number] PT STATUS: REG ER : 1960 PHYSICIAN: TERESA MENESES MD ADMIT DATE: 02/20/20/ER FS Draft Date of Exam:02/20/20 CHEST 1 VIEW AP/PA ONLY INDICATION: Chest pain EXAM: Portable chest at 7:53 PM FINDINGS: Heart size and pulmonary vascularity are normal. Lungs are clear. There are no effusions or pneumothoraces. IMPRESSION: Negative chest Dictated on workstation # [id number] Dict: 02/20/201999 Trans: 02/20/202001 [facility] [id number] Interpreted by: SAJAN RIVAS MD Electronically signed by: Reviewed: Reviewed by Me Departure Impression Primary Impression: Unstable angina Additional Impression: Atrial flutter with rapid ventricular response Disposition: [facility] ([facility]) Condition: Stable Transfer Transfer Reason: Patient preference (his electrophysiology media relations intern is at ) Time Spoke to Accepting Phy: 20:45 Transfer Progress Notes 2024: Called [facility] triage. Cristal. Dr Howard accepts the patient. 2104: Paged media relations intern: Dr Howard, Cardiology states that it could be a flutter given the rate and still appear regular. He would recommend continuing the Cardizem. He would like to review the EKGs. We will fax both copies to him. 2114: Both EKGs reviewed and faxed to the media relations intern as well as the chest x- ray was clouded to [facility]. Transfer Facility: [facility] Method of Transfer: EMS Departure-Patient Inst. Referrals: [facility] (PCP) Primary Care Physician NIKKI WILEY APRN (Family) Primary Care Physician ETRESA MENESES Feb 20, 2020 19:56
[2020-02-20] MEDS ORDERED: ASPIRIN 81 MG CHEW (CHILDREN'S ASA) PO ONE (20:00)
[2020-02-20] MEDS: NS IV 1000 ML 1,000 ML IV SCH ×2 (20:00→20:25)
[2020-02-20 20:03] LABS: HEMATOCRIT 43 % (40-54); HEMOGLOBIN 14.6 G/DL (13.3-17.7); MEAN CORPUSCULAR HEMOGLOBIN 28 PG (25-34); MEAN CORPUSCULAR HGB CONC 34 G/DL (32-36); MEAN CORPUSCULAR VOLUME 82 FL (80-99); MEAN PLATELET VOLUME 10.1 FL (7.4-10.4); PLATELET COUNT 530 10^3/uL (130-400); RED CELL DISTRIBUTION WIDTH 14.6 % (10.0-14.5); WHITE BLOOD COUNT 11.1 10^3/uL (4.3-11.0)
--- NOTE | 2020-02-20 20:03 | Diagnostic Imaging Report ---
INDICATION: Chest pain EXAM: Portable chest at 7:53 PM FINDINGS: Heart size and pulmonary vascularity are normal. Lungs are clear. There are no effusions or pneumothoraces. IMPRESSION: Negative chest Dictated by: Dictated on workstation # [id number]
[2020-02-20 20:04] LABS: BASOPHILS # (AUTO) 0.1 10^3/uL (0.0-0.1); BASOPHILS % (AUTO) 1 % (0-10); EOSINOPHILS # (AUTO) 0.5 10^3/uL (0.0-0.3); EOSINOPHILS % (AUTO) 4 % (0-10); LYMPHOCYTES # (AUTO) 2.3 X 10^3 (1.0-4.0); LYMPHOCYTES % (AUTO) 20 % (12-44); MONOCYTES # (AUTO) 1.2 X 10^3 (0.0-1.0); MONOCYTES % (AUTO) 11 % (0-12); NEUTROPHILS % (AUTO) 64 % (42-75)
[2020-02-20] MEDS: dilTIAZem DRIP PRE-MIX 125 ML IV SCH ×2 (20:05→21:21)
[2020-02-20 20:11] LABS: PROTHROMBIN TIME PATIENT 13.7 SEC (12.2-14.7)
[2020-02-20 20:17] LABS: BILIRUBIN,TOTAL 0.4 MG/DL (0.1-1.0); CALCIUM 9.5 MG/DL (8.5-10.1); CREATININE SERUM 1.31 MG/DL (0.60-1.30); MAGNESIUM 2.2 MG/DL (1.6-2.4); POTASSIUM 3.8 MMOL/L (3.6-5.0)
[2020-02-20] MEDS ORDERED: morphine INJ 10 MG/ML 1ML (SYR OR VIAL) IVP STA ×2 (20:18→22:11)
[2020-02-20] MEDS ORDERED: morphine INJ 10 MG/ML 1ML (SYR OR VIAL) ONE (20:20)
--- NOTE | 2020-02-20 20:33 | NUR ---
HUNG THE 2ND BAG OF SALINE ORDERED THEN AFTER APPROX 30 COLEMAN INFUSED DC'D THE ORDER DO TO THE LABS.
--- NOTE | 2020-02-20 20:51 | NUR ---
PT. HAD BEEN GIVEN 4 MG MS EARLIER. WHEN THIS RN ASKED IF THE PAIN MEDICATION HELPED THE PT. JUST SHRUGGED HIS SHOULDERS AND DID NOT GIVEN AN ANSWER. PT. DID NOT WANT TO TAKE THE BABY ASA BUT DID BECAUSE THE DOCTOR HAD ORDERED IT. ANYTIME THE IV IS TOUCHED THE PT STATES IT IS GETTING PULLED OR TWISTED. PT IS COOPERATIVE BUT IS BLUNT AND STATED HE REALLY DID NOT WANT TO BE HERE THAT HIS WAS CRYING SO HE IS HERE FOR HER ONLY.
--- NOTE | 2020-02-20 20:55 | NUR ---
ATTEMPTED TO GET A UA AND PT WAS UNABLE TO GIVE A SAMPLE AT THIS TIME.
[2020-02-20] MEDS ORDERED: ENOXAPARIN 100 MG/1 ML (LOVENOX) SYR ONE (21:00)
[2020-02-20] MEDS ORDERED: ENOXAPARIN 100 MG/1 ML (LOVENOX) SYR SC ONE (21:00)
[2020-02-20] MEDS ORDERED: ALPRAZolam 0.25 MG (XANAX) TAB PO ONE (21:45)
--- NOTE | 2020-02-20 21:53 | NUR ---
CATRINA CALLED WITH A BED AT THIS TIME.
[2020-02-20 21:59] VITALS: BP 121/90
== END 2020-02-20 22:20 | disposition short-term general hospital (02) ==
LOC: EDUNIT# 19:27 → ER FS 19:28
DX: I20.0 Unstable angina (principal); I48.92 Unspecified atrial flutter; I25.2 Old myocardial infarction; I10 Essential (primary) hypertension; I48.91 Unspecified atrial fibrillation; E03.9 Hypothyroidism, unspecified; F41.9 Anxiety disorder, unspecified; F32.9 Major depressive disorder, single episode, unspecified; Z85.038 Personal history of other malignant neoplasm of large intestine; Z79.01 Long term (current) use of anticoagulants; Z87.891 Personal history of nicotine dependence; Z86.711 Personal history of pulmonary embolism; Z82.49 Family history of ischemic heart disease and other diseases of the circulatory system
CPT/HCPCS: 36415; 71045; 80053; 83735; 83874; 83880; 84484; 85025; 85379; 85610; 85730; 93041

== ENCOUNTER 2020-03-11 19:58 | Inpatient (IN) | payer MEDICAID ==
[~2020-03-11] VITALS: Ht 183 cm; Wt 128.3 kg
[2020-03-11] VITALS (8 sets, daily range): BP systolic 102–128; BP diastolic 59–100
[2020-03-11] MEDS ORDERED: NITROGLYCERIN 0.4 MG SL TABS BTL 25'S SL PRN (20:15)
[2020-03-11 20:23] LABS: BASOPHILS % (AUTO) 0 % (0-10); EOSINOPHILS # (AUTO) 0.2 10^3/uL (0.0-0.3); EOSINOPHILS % (AUTO) 2 % (0-10); HEMATOCRIT 39 % (40-54); HEMOGLOBIN 13.4 G/DL (13.3-17.7); LYMPHOCYTES % (AUTO) 7 % (12-44); MEAN CORPUSCULAR HEMOGLOBIN 28 PG (25-34); MEAN CORPUSCULAR HGB CONC 34 G/DL (32-36); MEAN CORPUSCULAR VOLUME 82 FL (80-99); MEAN PLATELET VOLUME 10.1 FL (7.4-10.4); MONOCYTES # (AUTO) 1.3 X 10^3 (0.0-1.0); MONOCYTES % (AUTO) 9 % (0-12); NEUTROPHILS # (AUTO) 11.9 X 10^3 (1.8-7.8); NEUTROPHILS % (AUTO) 83 % (42-75); PLATELET COUNT 437 10^3/uL (130-400); RED CELL DISTRIBUTION WIDTH 15.7 % (10.0-14.5); WHITE BLOOD COUNT 14.4 10^3/uL (4.3-11.0)
[2020-03-11] MEDS ORDERED: PROMETHAZINE INJ 25 MG/ML (PHENERGAN) AMP IVP ONE (20:30)
--- NOTE | 2020-03-11 20:30 | NUR ---
sl ntg held at this time per jorge castellanos.
--- NOTE | 2020-03-11 20:31 | ED Chest Pain ---
General Chief Complaint: Chest Pain Stated Complaint: FEVER,WEAKNESS,CP Source: patient Exam Limitations: no limitations History of Present Illness Date Seen by Provider: Mar 11, 2020 Time Seen by Provider: 20:22 Initial Comments to ER by EMS from home near [facility] with multitude of complaints including chest pressure, nausea, palpitations and rapid heart rate sensation at home, abdominal bloating, abdominal discomfort, headache, fatigue.no fevers no chills no cough. He has had some shortness of breath. Follows with [facility] Dr. Emmanuel and most recently had A. fib cryoablation done on May [id number]. Recently was switched back to amiodarone on 03/01/20 for post A. fib ablation paroxysmal A. fib. Hes still on Eliquis. He had a negative stress test as well as a cardiac catheterization here last year showing nonobstructive coronary disease Timing/Duration: constant, changing over time Severity/Quality: moderate Location: central Radiation: no radiation Activities at Onset: none ASA po EDUCATIONAL PROGRAM DIRECTOR: No NTG SL EDUCATIONAL PROGRAM DIRECTOR: No Associated Symptoms: fatigue, nausea/vomiting, shortness of breath, weakness Allergies and Home Medications Allergies Uncoded Allergies: IV contrast (Allergy, Unknown, 03/11/20) Home Medications Alprazolam 1 Mg Tablet, 1 MG PO TID PRN for ANXIETY, (Reported) Apixaban 5 Mg Tablet, 5 MG PO BID, (Reported) Levothyroxine Sodium 25 Mcg Tablet, 25 MCG PO DAILY, (Reported) Oxycodone HCl 5 Mg Tablet, 5 MG PO QID PRN for PAIN-SEVERE, (Reported) Patient Home Medication List Home Medication List Reviewed: Yes Review of Systems Review of Systems Constitutional: see HPI, malaise, weakness EENTM: No Symptoms Reported Respiratory: See HPI, Shortness of Air Cardiovascular: See HPI, Chest Pain, Irregular Heart Rate, Palpitations Gastrointestinal: No Symptoms Reported Genitourinary: No Symptoms Reported Musculoskeletal: no symptoms reported Skin: no symptoms reported Psychiatric/Neurological: No Symptoms Reported Endocrine: No Symptoms Reported Hematologic/Lymphatic: No Symptoms Reported Past Bkpumzl-Crqsya-Upobgw Hx Patient Social History Type Used: Cigarettes Former Smoker, Quit: Jul 12, 1985 2nd Hand Smoke Exposure: No Recent Hopitalizations: No Immunizations Up To Date Tetanus Booster (TDap): Unknown Date of Pneumonia Vaccine: Jul 21, 2018 Date of Influenza Vaccine: Jul 21, 2018 Seasonal Allergies Seasonal Allergies: No Past Medical History Surgeries: Yes (Cardiac Ablation May 2019 at [facility]) Appendectomy Respiratory: No Pulmonary Embolism Cardiac: Yes Atrial Fibrillation, High Cholesterol, Hypertension, Irregular Heartbeat Neurological: No Headaches /Migraines Reproductive Disorders: No Sexually Transmitted Disease: Yes (Hep C: treated) HIV/AIDS: No Genitourinary: No Prostate Problems Gastrointestinal: No Diverticulosis, Hemorrhoids Musculoskeletal: No Arthritis Endocrine: Yes Hypothyroidsim HEENT: No Loss of Vision: Denies Hearing Impairment: Denies Cancer: No Colon Did You Recieve Any Treatments: Yes What Type of Treatment Did You: Surgical Intervention Psychosocial: No Anxiety, Depression Integumentary: No Blood Disorders: No Adverse Reaction/Blood Tranf: No Family Medical History Heart Disease, Hypertension Physical Exam Vital Signs Vital Signs - First Documented 03/11/20 20:02 Temp 37.2 Pulse 98 Resp 25 B/P (MAP) 109/68 (82) Capillary Refill : Less Than 3 Seconds Height, Weight, BMI Height: 6'0" Weight: 224lbs. 0oz. 101.250409dz; 27.00 BMI Method:Stated General Appearance: No Apparent Distress, WD/WN, Chronically ill, Other (no distress, heart rate is 97 normal sinus rhythm. Blood pressure is 120 systolic. Talks extensively about his chronic medical conditions. He believes the amiodarone is contributing to his current nausea and symptoms.) HEENT: PERRL/EOMI, TMs Normal Respiratory: Normal Breath Sounds, No Accessory Muscle Use, No Respiratory Distress Cardiovascular: Regular Rate, Rhythm, Normal Peripheral Pulses Gastrointestinal: Normal Bowel Sounds, Non Tender, Soft Extremity: Normal Capillary Refill, Normal Inspection Neurologic/Psychiatric: Alert, Oriented x3 Skin: Normal Color, Warm/Dry Focused Exam Lactate Level 03/11/20 20:11: Lactic Acid Level 1.61 Lactic Acid Level Laboratory Tests Test 03/11/20 20:11 Lactic Acid Level 1.61 MMOL/L (0.50-2.00) Progress/Results/Core Measures Results/Orders Lab Results Laboratory Tests Test 03/11/20 20:11 03/11/20 21:05 Range/Units White Blood Count 14.4 H 4.3-11.0 10^3/uL Red Blood Count 4.79 4.35-5.85 10^6/uL Hemoglobin 13.4 13.3-17.7 G/DL Hematocrit 39 L 40-54 % Mean Corpuscular Volume 82 80-99 FL Mean Corpuscular Hemoglobin 28 25-34 PG Mean Corpuscular Hemoglobin Concent 34 32-36 G/DL Red Cell Distribution Width 15.7 H 10.0-14.5 % Platelet Count 437 H 130-400 10^3/uL Mean Platelet Volume 10.1 7.4-10.4 FL Neutrophils (%) (Auto) 83 H 42-75 % Lymphocytes (%) (Auto) 7 L 12-44 % Monocytes (%) (Auto) 9 0-12 % Eosinophils (%) (Auto) 2 0-10 % Basophils (%) (Auto) 0 0-10 % Neutrophils # (Auto) 11.9 H 1.8-7.8 X 10^3 Lymphocytes # (Auto) 1.0 1.0-4.0 X 10^3 Monocytes # (Auto) 1.3 H 0.0-1.0 X 10^3 Eosinophils # (Auto) 0.2 0.0-0.3 10^3/uL Basophils # (Auto) 0.0 0.0-0.1 10^3/uL Neutrophils % (Manual) 90 % Lymphocytes % (Manual) 3 % Monocytes % (Manual) 6 % Eosinophils % (Manual) 0 % Basophils % (Manual) 0 % Band Neutrophils 0 % Reactive Lymphocytes 1 % Poikilocytosis MODERATE Anisocytosis SLIGHT Elliptocytes SLIGHT Prothrombin Time 15.4 H 12.2-14.7 SEC INR Comment 1.2 0.8-1.4 Activated Partial Thromboplast Time 21 L 24-35 SEC Sodium Level 140 135-145 MMOL/L Potassium Level 3.5 L 3.6-5.0 MMOL/L Chloride Level 107 98-107 MMOL/L Carbon Dioxide Level 23 21-32 MMOL/L Anion Gap 10 5-14 MMOL/L Blood Urea Nitrogen 12 7-18 MG/DL Creatinine 1.41 H 0.60-1.30 MG/DL Estimat Glomerular Filtration Rate 51 BUN/Creatinine Ratio 9 Glucose Level 109 H 70-105 MG/DL Lactic Acid Level 1.61 0.50-2.00 MMOL/L Calcium Level 8.9 8.5-10.1 MG/DL Corrected Calcium 9.1 8.5-10.1 MG/DL Magnesium Level 2.0 1.6-2.4 MG/DL Total Bilirubin 0.5 0.1-1.0 MG/DL Aspartate Amino Transf (AST/SGOT) 15 5-34 U/L Alanine Aminotransferase (ALT/SGPT) 14 0-55 U/L Alkaline Phosphatase 89 40-136 U/L Myoglobin 91.3 10.0-92.0 NG/ML Troponin I 0.105 H <0.028 NG/ML B-Type Natriuretic Peptide 242.3 H <100.0 PG/ML Total Protein 6.2 L 6.4-8.2 GM/DL Albumin 3.7 3.2-4.5 GM/DL Urine Color YELLOW Urine Clarity CLEAR Urine pH 7.5 5-9 Urine Specific [place] 1.015 L 1.016-1.022 Urine Protein NEGATIVE NEGATIVE Urine Glucose (UA) NEGATIVE NEGATIVE Urine Ketones NEGATIVE NEGATIVE Urine Nitrite NEGATIVE NEGATIVE Urine Bilirubin NEGATIVE NEGATIVE Urine Urobilinogen 2.0 < = 1.0 MG/DL Urine Leukocyte Esterase 3+ H NEGATIVE Urine RBC (Auto) TRACE-I NEGATIVE Urine RBC RARE /HPF Urine WBC 25-50 H /HPF Urine Squamous Epithelial Cells RARE /HPF Urine Crystals NONE /LPF Urine Bacteria MODERATE H /HPF Urine Casts NONE /LPF Urine Mucus SMALL H /LPF Urine Culture Indicated YES Urine Opiates Screen POSITIVE H NEGATIVE Urine Oxycodone Screen NEGATIVE NEGATIVE Urine Methadone Screen NEGATIVE NEGATIVE Urine Propoxyphene Screen NEGATIVE NEGATIVE Urine Barbiturates Screen NEGATIVE NEGATIVE Ur Tricyclic Antidepressants Screen NEGATIVE NEGATIVE Urine Phencyclidine Screen NEGATIVE NEGATIVE Urine Amphetamines Screen NEGATIVE NEGATIVE Urine Methamphetamines Screen NEGATIVE NEGATIVE Urine Benzodiazepines Screen POSITIVE H NEGATIVE Urine Cocaine Screen NEGATIVE NEGATIVE Urine Cannabinoids Screen NEGATIVE NEGATIVE My Orders Orders - LATRICE AGARWAL APRN Cbc With Automated Diff (03/11/20 20:08) Magnesium (03/11/20 20:08) Chest 1 View, Ap/Pa Only (03/11/20 20:08) Ekg Tracing (03/11/20 20:08) Comprehensive Metabolic Panel (03/11/20 20:08) Myoglobin Serum (03/11/20 20:08) Protime With Inr (03/11/20 20:08) Partial Thromboplastin Time (03/11/20 20:08) O2 (03/11/20 20:08) Monitor-Rhythm Ecg Trace Only (03/11/20 20:08) Lipid Panel (03/12/20 06:00) Ed Iv/Invasive Line Start (03/11/20 20:08) BNP (03/11/20 20:08) Nitroglycerin 0.4 Mg Btl 25's (Nitrostat (03/11/20 20:15) Promethazine Injection (Phenergan Injec (03/11/20 20:30) Manual Differential (03/11/20 20:11) Troponin I (03/11/20 20:11) Ct Abdomen/Pelvis Wo (03/11/20 20:33) Antacid Suspension (Mylanta Suspension (03/11/20 20:45) Lidocaine 2% Viscous 15 Ml (Xylocaine Vi (03/11/20 20:45) Ua Culture If Indicated (03/11/20 21:00) Drug Screen Stat (Urine) (03/11/20 21:00) Urine Culture (03/11/20 21:05) Ceftriaxone For Iv Use (Rocephin For I (03/11/20 21:30) Lactic Acid Analyzer (03/11/20 21:28) Blood Culture (03/11/20 21:28) Coronavirus Sars-Cov-2 So 2018 (03/11/20 21:35) Medications Given in ED Current Medications Medications Dose Ordered Sig/Janet Route Start Time Stop Time Status Last Admin Dose Admin Al Hydrox/Mg Hydrox/Simethicone 30 ml ONCE ONCE PO 03/11/20 20:45 03/11/20 20:46 DC 03/11/20 20:44 30 ML Ceftriaxone Sodium 1000 mg/ Sterile Water 10 ml @ 200 mls/hr ONCE ONCE IV 03/11/20 21:30 03/11/20 21:32 DC 03/11/20 21:39 200 MLS/HR Lidocaine HCl 10 ml ONCE ONCE PO 03/11/20 20:45 03/11/20 20:46 DC 03/11/20 20:44 10 ML Promethazine HCl 12.5 mg ONCE ONCE IVP 03/11/20 20:30 03/11/20 20:31 DC 03/11/20 20:29 12.5 MG Vital Signs/I&O 03/11/20 03/11/20 03/11/20 03/11/20 20:02 20:02 20:02 20:15 Temp 37.2 Pulse 98 101 Resp 25 20 B/P (MAP) 109/68 (82) 122/59 (80) Pulse Ox 90 90 93 O2 Delivery Nasal Cannula Nasal Cannula Nasal Cannula Nasal Cannula O2 Flow Rate 2.00 2.0 2.0 2.00 03/11/20 03/11/20 03/11/20 03/11/20 20:30 20:45 21:00 21:45 Pulse 93 100 94 97 Resp 18 20 18 21 B/P (MAP) 120/69 (86) 128/73 (91) 118/100 (106) 107/62 (77) Pulse Ox 94 93 94 89 O2 Delivery Nasal Cannula Nasal Cannula Room Air Room Air O2 Flow Rate 2.00 2.00 Diagnostic Imaging Diagonstic Imaging: Xray Plain Films/CT/US/NM/MRI: chest Comments NAME: JUAN CARLOS GAFFNEY MED REC#: [id number] PT STATUS: REG ER : 1960 PHYSICIAN: LATRICE AGARWAL APRN ADMIT DATE: 03/11/20/ER Draft Date of Exam:03/11/20 CHEST 1 VIEW, AP/PA ONLY INDICATION: Chest pain EXAMINATION: Chest 03/11/2020 FINDINGS: Two views of the chest There is atelectasis at the left lung base laterally. Remaining lungs clear. No effusions, no pneumothorax. Heart and pulmonary vasculature normal. IMPRESSION: Minimal left base atelectasis, otherwise negative chest. Dictated on workstation # [id number] Dict: 03/11/202053 Trans: 03/11/202057 [facility] [id number] Interpreted by: ELLEN DUKE MD Electronically signed by: Departure Communication (Admissions) Time/Spoke to Admitting Phy: 22:[address] Roach, given the clean heart catheter last year we will admit to her, consult cardiology in the morning with a repeat troponin in the morning. Continue home dose of aspirin Eliquis Xanax and hydrocodone, add Rocephin and Phenergan for nausea and treatment of UTI. He states he is still nauseous but he also states he would like a glass of tea, a bag of chips and a sandwich Impression Primary Impression: Chest pain Qualified Codes: R07.9 - Chest pain, unspecified Disposition: 09 ADMITTED INPATIENT Condition: Stable Admissions Decision to Admit Reason: Admit from ER (General) Decision to Admit/Date: Mar 11, 2020 Time/Decision to Admit Time: 20:58 Departure-Patient Inst. Referrals: [facility] [place] (PCP) Primary Care Physician NIKKI WILEY APRN (Family) Primary Care Physician LATRICE AGARWAL APRN Mar 11, 2020 20:31
[2020-03-11 20:34] LABS: INR 1.2 (0.8-1.4); PROTHROMBIN TIME PATIENT 15.4 SEC (12.2-14.7)
[2020-03-11 20:35] LABS: ALBUMIN 3.7 GM/DL (3.2-4.5); POTASSIUM 3.5 MMOL/L (3.6-5.0)
[2020-03-11 20:36] LABS: CALCIUM 8.9 MG/DL (8.5-10.1)
[2020-03-11 20:37] LABS: TOTAL PROTEIN 6.2 GM/DL (6.4-8.2)
[2020-03-11 20:39] LABS: BAND NEUTROPHILS 0 %; BASOPHILS % (MANUAL) 0 %; BILIRUBIN,TOTAL 0.5 MG/DL (0.1-1.0); EOSINOPHILS % (MANUAL) 0 %; LYMPHOCYTES % (MANUAL) 3 %; MONOCYTES % (MANUAL) 6 %; NEUTROPHILS % (MANUAL) 90 %; REACTIVE LYMPHOCYTES 1 %
[2020-03-11 20:40] LABS: ANISOCYTOSIS SLIGHT; ELLIPT/OVALOCYTES SLIGHT; POIKILOCYTOSIS MODERATE
[2020-03-11 20:41] LABS: CREATININE SERUM 1.41 MG/DL (0.60-1.30)
[2020-03-11] MEDS ORDERED: LISI10TA2 PO (20:41)
[2020-03-11] MEDS ORDERED: AMIO200T4 PO (20:41)
[2020-03-11] MEDS ORDERED: ATOR40TA70 PO (20:41)
[2020-03-11] MEDS ORDERED: DOFE125C4 PO (20:41)
[2020-03-11] MEDS ORDERED: ANTACID SUSP 30 ML UDC (MYLANTA) PO ONE (20:45)
[2020-03-11] MEDS ORDERED: LIDOCAINE 2% VISCOUS 15 ML UDC PO ONE (20:45)
--- OUTSIDE RECORDS SUMMARY | 2020-03-11 20:45 | XMS REPORT | Encounter Summary ---
Author Author [facility] Organization [facility] Address Unknown Phone Unavailable Care Team Providers Care Hr Business Partner Consultant Name Role Phone Sherman Spicer MD Unavailable Reyna Bond Unavailable Unavailable Indiana Bauer APRN PCP Unavailable Reason for Visit * Reason Comments Test/procedure PFT needed. Encounter Details Care Team Description Date Type Department Patrick Constantino RN Test/procedure (PFT needed.) 03/11/[address] [id number] Social History Date Tobacco Use Types Packs/Day Years Used Quit: 1979 Former Smoker Cigarettes Smokeless Tobacco: Never Used Drinks/Week oz/Week Comments Alcohol Use No Sex Assigned at Date Recorded Not on file Industry Job Start Date Occupation Not on file Not on file Not on file Travel End Travel History Travel Start No recent travel history available. Date Recorded COVID-19 Exposure Response 03/01/2020 9:05 AM CDT In the last month, have you been in contact with No / Unsure someone who was confirmed or suspected to have Coronavirus / COVID-19? documented as of this encounter Functional Status Date of Assessment Functional Status Response 02/21/2020 Does the patient have a hearing impairment: No documented as of this encounter Miscellaneous Notes * Telephone Encounter - Patrick Constantino RN - 03/11/2020 11:08 AM CDT Called pt and LVM to inform him of need for PFT after amio start. Pt given PFT scheduling number [phone] and advised to complete this in the next 4-6 week s. documented in this encounter Plan of Treatment Order Schedule Name Type Priority Associated Diag noses Ordered: 03/11/2020 PFT COMPLETE PULM PFT Routine Atrial flutt er with rapid FUNCTION ventricular response (HCC) Paroxysmal A-fib (HCC) documented as of this encounter Goals Goal Patient Associated Recent Progress Patient-Stat Aut hor Goal Type Problems ed? Take Medication at Right Time, Medication No Lind, Right Day, Right Order, With Adherence Danilo Moseley N or Without Food Correctly documented as of this encounter Visit Diagnoses Diagnosis Atrial flutter with rapid ventricular r esponse (HCC) Atrial flutter Paroxysmal A-fib (HCC) Atrial fibrillation documented in this encounter
--- OUTSIDE RECORDS SUMMARY | 2020-03-11 20:45 | XMS REPORT | Encounter Summary ---
Author Author [facility] Organization [facility] Address Unknown Phone Unavailable Care Team Providers Care Dry Cleaner Hand Name Role Phone Sherman Spicer MD Unavailable Reyna Bond Unavailable Unavailable Indiana Bauer APRN PCP Unavailable Encounter Details Care Team Description Date Type Department Ya Howard RN 03/05/2020 Telephone [facility] [address] [place] [address] Social History Date Tobacco Use [...] Telephone Encounter - Ya Howard RN - 03/05/2020 4:15 PM CDT have attempted to call David today in response to the voice mail he left below per chart review, he was to start amiodarone yesterday would like to discuss taking this medication WITH FOOD and clarify how "my kidne ys hurt" phone did not ring earlier today able to leave voice mail just now and asked him to c/b to discuss if he does not hear from Dr Rodriguez's office * Telephone Encounter - Ya Howard RN - 03/05/2020 4:15 PM CDT ----- Message from Mercy Carbajal LPN sent at 03/05/2020 8:27 AM CDT ----- Regarding: MPE- med reaction VM from patient on triage line at 10:07pm last night. Said that the new medication is making his kidneys and belly hurt. Call him at #[phone] and said to keep trying if he does not answer as somet imes his phone does not ring. documented in this encounter Plan of Treatment [...]
--- OUTSIDE RECORDS SUMMARY | 2020-03-11 20:45 | XMS REPORT | Encounter Summary ---
Author Author [facility] Organization [facility] Address Unknown Phone Unavailable Care Team Providers Care Supervisor Plasma Name Role Phone Sherman Spicer MD Unavailable Reyna Bond Unavailable Unavailable Indiana Bauer APRN PCP Unavailable Reason for Visit * Reason Comments Medication Question pt is on HC9 Encounter Details Care Team Description Date Type Department Brandi Wolfe RN Medication Question (pt is on HC9) 02/23/[address] Tele[address] [address] Social History Date Tobacco Use Types Packs/Day Years Used Quit: 1979 Former Smoker Cigarettes Smokeless Tobacco: Never Used Drinks/Week oz/Week Comments Alcohol Use No Sex Assigned at Date Recorded Not on file Industry Job Start Date Occupation Not on file Not on file Not on file Travel End Travel History Travel Start No recent travel history available. Date Recorded COVID-19 Exposure Response 02/20/2020 8:47 PM CDT In the last month, have you been in contact with No / Unsure someone who was confirmed or suspected to have Coronavirus / COVID-19? documented as of this encounter Functional Status Date of Assessment Functional Status Response 02/21/2020 Does the patient have a hearing impairment: No documented as of this encounter Miscellaneous Notes * Telephone Encounter - Brandi Wolfe RN - 02/23/2020 12:17 PM CDT Attempted to return call to patient. Patient is still currently inpatient and contacted our office d/t concerns that his medications are "making him sick." LVM recommending that he contact his rounding team in the hospital. * Telephone Encounter - Brandi Wolfe RN - 02/23/2020 11:58 AM CDT ----- Message from Mercy Carbajal LPN sent at 02/23/2020 11:43 AM CDT ----- Regarding: MPE- discharge ? VM from patient on triage line returning our call. Said that he is going home today and he is concerned as the medication he is on is making him sick. He would like call back at #[phone]. documented in this encounter Plan of Treatment [...]
--- OUTSIDE RECORDS SUMMARY | 2020-03-11 20:45 | XMS REPORT | Encounter Summary ---
Author Author [facility] Organization [facility] Address Unknown Phone Unavailable Care Team Providers Care Enrollment Representative Name Role Phone Sherman Spicer MD Unavailable Reyna Bond Unavailable Unavailable Indiana Bauer APRN PCP Unavailable Reason for Visit * Reason Comments Tachycardia multiple attempts to contac t, no answer, he c/b but unable to return call Encounter Details Care Team Description Date Type Department Cecy He RN Tachycardia (multiple attempts to contac t, no answer, he c/b but unable to return call) 02/28/2020 Telephone [facility] [address] [place] [address] Social History Date Tobacco Use Types Packs/Day [...] Telephone Encounter - Ya Howard RN - 02/29/2020 4:24 PM CDT no answer again today, appt is scheduled in am * Telephone Encounter - Ya Howard RN - 02/28/2020 5:00 PM CDT multiple attempts to contact Mr Rice today. Dr Rodriguez reviewed chart and recommends rate control for Mr Rice until he can h ave EP study/procedure completed suggested using Metoprolol succinate 25 mg per day. Mr Rice's chart notes side effect in past from beta blockers and would like to discuss this prior to sending rx to pharmacy. will continue to call him He is scheduled for appt with Dr Rodriguez on Wednesday * Telephone Encounter - Cecy He RN - 02/28/2020 9:00 AM CDT Left VM for patient to go to ER if HR is still high. * Telephone Encounter - Cecy He RN - 02/28/2020 9:00 AM CDT ----- Message from Mercy Carbajal LPN sent at 02/28/2020 8:41 AM CDT ----- Regarding: MPE- chest pain VM from patient on triage line at 6:67pm yesterday. Said that his heart is hurting again and HR 145-155. He is going to go to bed and try to sleep. Said to call him in am at #[phone]. documented in this encounter Plan of Treatment [...]
--- OUTSIDE RECORDS SUMMARY | 2020-03-11 20:45 | XMS REPORT | Encounter Summary ---
Author Author [facility] Organization [facility] Address Unknown Phone Unavailable Care Team Providers Care Tree Trimmer Helper Name Role Phone Sherman Spicer MD Unavailable Reyna Bond Unavailable Unavailable Indiana Bauer APRN PCP Unavailable Encounter Details Care Team Description Date Type Department 03/01/2020 Travel Social History Date Tobacco Use Types [...]
--- OUTSIDE RECORDS SUMMARY | 2020-03-11 20:45 | XMS REPORT | Encounter Summary ---
Author Author [facility] Organization [facility] Address Unknown Phone Unavailable Care Team Providers Care Hydroelectric Plant Structural Engineer Name Role Phone Sherman Spicer MD Unavailable Reyna Bond Unavailable Unavailable Indiana Bauer APRN PCP Unavailable Encounter Details Care Team Description Date Type Department Ya Howard RN 03/06/2020 Telephone [facility] [address] [place] [address] Social History Date Tobacco Use [...] Telephone Encounter - Patrick Constantino RN - 03/06/2020 4:22 PM CDT RC to pt and LVM. Pt advised per MPE OV note on 03/01 to check BP at least once per day and record values. Pt also advised to seek emergent care if bleeding, s welling or pain become worse as noted below. MPE- RC Received: Today Call patient Message Contents Mercy Carbajal LPN P Cvm Nurse Yousif NEGRETE from patient on triage line. Said that he got a wrist b/p cuff and was 110/73. How often should he check it. * Telephone Encounter - Ya Howard, RN - 03/06/2020 12:00 PM CDT returned call to David again this morning states, "I think I'm too much medicine". since starting the amiodarone said his stomach just started hurting and doesn't stop. denies cramping, just "hurts across his stomach and back" denies nausea or vomiting. denies diarrhea. asked him about blood in stools. states "I just noticed a little blood". descri bed as small amount David was away from his home he said and was very brief and said he "didn't want to talk any more" asked if I should call back at later time but he said "no" He did tell me his heart rate was only 80 bpm right now I relayed to David, i will discuss with Dr Rodriguez but if his pain or bleeding wors en he needs to call or go to the ED * Telephone Encounter - Ya Howard RN - 03/06/2020 12:00 PM CDT ----- Message from Mercy Carbajal LPN sent at 03/06/2020 8:09 AM CDT ----- Regarding: PATRICK NEGRETE from patient on triage line at 4:33pm yesterday returning our call. Said that his belly still hurts and he has blood in his stools. documented in this encounter Plan of Treatment [...]
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
--- OUTSIDE RECORDS SUMMARY | 2020-03-11 20:45 | XMS REPORT | Clinical Summary ---
Author Author [facility] Organization [facility] Address Unknown Phone Unavailable Care Team Providers Care Emery Wheel Worker Name Role Phone Sherman Spicer MD Unavailable Reyna Bond Unavailable Unavailable Indiana Bauer APRN PCP Unavailable Source Comments Some departments are not documenting in the electronic medical record. If you d o not see the information that you expected, contact Release of Information in [facility] [email or web address] Information Management department at [phone] for further assistan ce in locating additional records.[facility] Allergies Comments Active Allergy Reactions Severity Noted Date Patient states he feels nausea, headache, dizzy, hot ("like it will blow his head up"), and like he will throw up when he receives contrast dye. Iodinated Contrast Media NAUSEA AND Low 01/16 VOMITING Medications End Date Status Medication Sig Dispensed Refills Start Date Active ALPRAZolam (XANAX) 1 mg Take one 0 tablet tablet by 9 mouth three times daily as needed for Anxiety. Additional Information Patient taking differently: (No dose reported), (No route reported), (No frequency reported), Take one-half tablet by mouth every morning, and one tablet at night., Informant: Outside Record, Reported on 01/19/2020 9:41 AM Active levothyroxine (SYNTHROID) Take 50 mcg 0 50 mcg tablet by mouth daily 30 minutes before breakfast. Active oxyCODONE (ROXICODONE) 10 Take 10 mg by 0 mg tablet mouth every 3-4 hours as needed for Pain Active apixaban (ELIQUIS) 5 mg Take one 60 tablet 1 tablet tablet by 0 mouth twice daily. Active atorvastatin (LIPITOR) 40 Take one 90 tablet 0 mg tablet tablet by 0 mouth daily. 06/13/2020 Active amiodarone (CORDARONE) Take two 266 tablet 0 200 mg tablet tablets by 0 mouth twice daily for 14 days, THEN one tablet three times daily for 30 days, THEN two tablets daily for 60 days. Take with food. Active lisinopriL (ZESTRIL) 10 Take one 90 tablet 3 mg tablet tablet by 0 mouth daily. Active Miscellaneous Medical automatic 1 each 0 02/18 Supply [facility] blood 0 pressure machine to monitor VS daily. 03/01/2020 Discontinued (Patient's Suero ce) cyanocobalamin (VITAMIN Take 100 mcg 0 B-12) 100 mcg tablet by mouth daily. 03/01/2020 Discontinued (Patient's Suero ce) cholecalciferol (VITAMIN Take 1,000 0 D-3) 1,000 units tablet Units by mouth daily. 03/01/2020 Discontinued (Therapy comple cosme) ascorbic acid (vitamin C) Take 250 mg 0 (VITAMIN-C) 250 mg tablet by mouth daily. 03/01/2020 Discontinued (Per Provider) dofetilide (TIKOSYN) 125 Take one 120 capsule 0 0 mcg capsuleIndications: capsule by 0 prevention of recurrent mouth twice atrial fibrillation daily. Indications: prevention of recurrent atrial fibrillation 03/01/2020 Discontinued (Therapy comple cosme) senna/docusate Take two 60 tablet 0 (SENOKOT-S) 8.6/50 mg tablets by 0 tablet mouth twice daily. Active Problems Problem Noted Date Type 2 NSTEMI (non-ST elevated myocardial infarction) 02/21/2020 Chronic headaches 02/21/2020 Paroxysmal A-fib 02/02/2020 Atypical chest pain 02/02/2020 Hypothyroid 02/02/2020 Chronic back pain 02/02/2020 Migraine 02/02/2020 Anxiety 02/02/2020 History of pulmonary embolus (PE) 02/02/2020 Atrial flutter with rapid ventricular response 01/17 Overview: 01/18/2020 - ECHO: Left Ventricle: Nor mal size. Mild concentric hypertrophy. Normal ejection fraction. LV endocardial border difficult to visualize due to body habitus. Overall ejection fraction appears to be normal 60%. No obvious regional wall mo tion abnormalities. Right Ventricle: Normal size and ejection fra ction. No hemodynamically significant valvular abnormalities. Ao rta: The sinuses of Valsalva are mildly dilated. Normal central venous pressure (0-5 mm Hg). Acute pericarditis 06/03/2019 STEPH (acute kidney injury) 06/03/2019 Chest pain on breathing 05/30/2019 Essential hypertension 12/14/2018 Hyperlipidemia 12/14/2018 S/P ablation of atrial fibrillation 12/14/2018 Overview: 08/05/18 [facility] - ED pre sented with palpitations, dyspnea, chest pain, "foing to pass out". SVT v s AF rate 220 - 250 bpm. given lopressor 5 mg IVP. negative cardiac enzymes. 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" and to f/u with PCP Encounters Care Team Description Date Type Specialty Ya Howard RN Follow Up (unsure of reason of call, LM to c/b) 03/11/2020 Telephone Cardiology Patrick Constantino RN Test/procedure (PFT needed.) 03/11/2020 Telephone Cardiology Ya Howard RN 03/06/2020 Telephone Cardiology Ya Howard RN 03/05/2020 Telephone Cardiology Kelby Rodriguez MD Atrial fibrillation (post hospital follo w up, wants to know if he can exercise) 03/01/2020 Office Visit Cardiology 03/01/2020 Travel Cecy He RN Tachycardia (multiple attempts to contac t, no answer, he c/b but unable to return call) 02/28/2020 Telephone Cardiology Brandi Wolfe RN Medication Question (pt is on HC9) 02/23/2020 Telephone Cardiology Tsering Diehl RN Follow-up Phone Call 02/21/2020 Telephone Cardiology Maine Howard MD Ferrell, Ryan S, MD Atrial flutter with rapid ventricular re sponse (HCC) 02/20/2020 Hospital Cardiology - Encounter 02/23/2020 02/20/2020 Hospital Radiology Encounter 02/20/2020 Travel Brandi Wolfe RN Other 02/06/2020 Telephone Cardiology Tsering Diehl RN Follow-up Phone Call 02/05/2020 Telephone Cardiology Deirdre Chowdhury MD Kvapil, Jared A, MD Paroxysmal A-fib (HCC) 02/02/2020 Hospital Encounter 02/01/2020 Travel Noemi Hernandez RN Anticoagulation (Eliquis hold ) 02/01/2020 Telephone Cardiology Patrick Constantino, GORDO Tachycardia 01/24/2020 Telephone Cardiology Patrick Constantino RN Follow Up (Pt requested MPE to see [facility] room. EP consulted, RRR rounding today.) 01/18/2020 Telephone Cardiology Lev Rodriguez MD Owens, Steven D, MD Atrial flutter with rapid ventricular re sponse (HCC) 01/17/2020 Hospital - Encounter 01/22/2020 01/17/2020 Hospital Radiology Encounter 01/17/2020 Travel Ya Howard RN Follow-up Phone Call (returned call, lm to c/b) 01/05/2020 Telephone Cardiology from Last 3 Months Family [...] Pressure 87 03/01/2020 9:33 AM CDT Pulse 36.3 C (97.4 F) 02/23/2020 8:19 AM CDT Temperature - - Respiratory Rate 97% 02/23/2020 8:19 AM CDT Oxygen Saturation - - Inhaled Oxygen Concentration 95.3 kg (210 lb) 03/01/2020 9:33 AM CDT Weight 182.9 cm (6') 03/01/2020 9:33 AM CDT Height 28.48 03/01/2020 9:33 AM CDT Body Mass Index Plan of Treatment Health [...] Lind, Right Day, Right Order, With Adherence [place]ore[place], R N or Without Food Correctly Procedures Comments Procedure Name Priority Date/Time Associated Diag nosis ECG-SCAN 03/01/2020 12:00 AM CDT HC MAGNESIUM Routine 02/23/2020 5:14 AM CDT HC BASIC METABOLIC PANEL Routine 02/23/2020 5:14 AM CDT HC CBC W/ AUTOMATED DIFF Routine 02/23/2020 5:14 AM CDT HC MAGNESIUM Routine 02/22/2020 5:04 AM CDT HC BASIC METABOLIC PANEL Routine 02/22/2020 5:04 AM CDT HC CBC W/ AUTOMATED DIFF Routine 02/22/2020 5:04 AM CDT TROPONIN-I Routine 02/21/2020 4:45 AM CDT HC MAGNESIUM Routine 02/21/2020 4:45 AM CDT HC PHENCYCLIDINES; QUAL Routine 02/21/2020 3:00 AM CDT HC OPIATES; QUAL Routine 02/21/2020 3:00 AM CDT HC COCAINE; QUAL Routine 02/21/2020 3:00 AM CDT HC CANNABINOIDS; QUAL Routine 02/21/2020 3:00 AM CDT HC BENZODIAZEPINES, QUAL Routine 02/21/2020 3:00 AM CDT HC BARBITURATES Routine 02/21/2020 3:00 AM CDT HC AMPHETAMINES QUAL, Routine 02/21/2020 URINE 3:00 AM CDT CHEST SINGLE VIEW STAT 02/21/2020 12:37 AM CDT ECG 12-LEAD Routine 02/21/2020 12:08 AM CDT HC *FREE T4 (REFLEX) Routine 02/20/2020 11:33 PM CDT HC TROPONIN-I Add on 02/20/2020 11:33 PM CDT HC TSH SCREEN Routine 02/20/2020 11:33 PM CDT HC PHOSPHOROUS, SERUM Routine 02/20/2020 11:33 PM CDT HC MAGNESIUM Routine 02/20/2020 11:33 PM CDT HC COMPREHENSIVE Routine 02/20/2020 METABOLIC PANEL 11:33 PM CDT HC PTT(APTT) Routine 02/20/2020 11:33 PM CDT HC PT(INR) Routine 02/20/2020 11:33 PM CDT HC CBC W/ AUTOMATED DIFF Routine 02/20/2020 11:33 PM CDT COVID-19 (SARS-COV-2) PCR Routine 02/20/2020 11:33 PM CDT GENERAL RAD CHEST Routine 02/20/2020 Diagnosis un known EXTERNAL IMAGING 12:00 AM CDT TELEMETRY STRIPS-SCAN 02/20/2020 12:00 AM CDT HC TROPONIN-I Routine 02/02/2020 11:15 AM CDT COVID-19 (SARS-COV-2) PCR Routine 02/02/2020 9:35 AM CDT TROPONIN-I Routine 02/02/2020 8:50 AM CDT HC STAT 02/02/2020 LIPID-5:CHOL/TRG/HDL/LDL+ 2:33 AM CDT VLDL HC TROPONIN-I Routine 02/02/2020 2:33 AM CDT HC MAGNESIUM Routine 02/02/2020 2:33 AM CDT HC HEMOGLOBIN A1C Routine 02/02/2020 2:33 AM CDT HC TSH SCREEN STAT 02/02/2020 2:33 AM CDT HC B-TYPE NATRIURETIC STAT 02/02/2020 PEPTIDE 2:33 AM CDT HC COMPREHENSIVE STAT 02/02/2020 METABOLIC PANEL 2:33 AM CDT HC CBC W/ AUTOMATED DIFF STAT 02/02/2020 2:33 AM CDT TELEMETRY STRIPS-SCAN 02/02/2020 12:00 AM CDT ECG-SCAN 02/02/2020 12:00 AM CDT HC COMPREHENSIVE Routine 01/22/2020 METABOLIC PANEL 3:56 AM CDT HC MAGNESIUM Routine 01/22/2020 3:56 AM CDT HC PT(INR) Routine 01/22/2020 3:56 AM CDT HC CBC W/ AUTOMATED DIFF Routine 01/22/2020 3:56 AM CDT ECG 12-LEAD Routine 01/21/2020 5:00 AM CDT ECG 12-LEAD Routine 01/21/2020 5:00 AM CDT HC PT(INR) Routine 01/21/2020 4:38 AM CDT HC MAGNESIUM Routine 01/21/2020 4:38 AM CDT HC COMPREHENSIVE Routine 01/21/2020 METABOLIC PANEL 4:38 AM CDT HC CBC W/ AUTOMATED DIFF Routine 01/21/2020 4:38 AM CDT HC PT(INR) Routine 01/20/2020 9:52 AM CDT ECG 12-LEAD Routine 01/20/2020 5:00 AM CDT HC MAGNESIUM Routine 01/20/2020 4:03 AM CDT HC COMPREHENSIVE Routine 01/20/2020 METABOLIC PANEL 4:03 AM CDT HC CBC W/ AUTOMATED DIFF Routine 01/20/2020 4:03 AM CDT ECG-SCAN 01/20/2020 12:00 AM CDT ECG-SCAN 01/20/2020 12:00 AM CDT ECG-SCAN 01/20/2020 12:00 AM CDT ECG-SCAN 01/20/2020 12:00 AM CDT ECG 12-LEAD Routine 01/19/2020 5:00 PM CDT ECG 12-LEAD Routine 01/19/2020 5:00 AM CDT HC PT(INR) Routine 01/19/2020 4:21 AM CDT HC MAGNESIUM Routine 01/19/2020 4:21 AM CDT HC COMPREHENSIVE Routine 01/19/2020 METABOLIC PANEL 4:21 AM CDT HC CBC W/ AUTOMATED DIFF Routine 01/19/2020 4:21 AM CDT POC GLUCOSE 01/18/2020 8:45 PM CDT 2D + DOPPLER ECHO NO Routine 01/18/2020 CONTRAST 9:49 AM CDT HC TROPONIN-I Routine 01/18/2020 6:03 AM CDT UA REFLEX CULTURE LABEL Routine 01/18/2020 3:50 AM CDT URINALYSIS MICROSCOPIC Routine 01/18/2020 REFLEX TO CULTURE 3:50 AM CDT HC URINALYSIS UAR Routine 01/18/2020 3:50 AM CDT HC Add on 01/18/2020 LIPID-5:CHOL/TRG/HDL/LDL+ 3:40 AM CDT VLDL HC MAGNESIUM Routine 01/18/2020 3:40 AM CDT HC COMPREHENSIVE Routine 01/18/2020 METABOLIC PANEL 3:40 AM CDT HC CBC W/ AUTOMATED DIFF Routine 01/18/2020 3:40 AM CDT HC TROPONIN-I STAT 01/18/2020 2:05 AM CDT HC HEMOGLOBIN A1C Specimen 01/18/2020 in Lab 12:17 AM CDT TROPONIN-I STAT 01/18/2020 12:00 AM CDT CHEST 2 VIEWS SONAM 01/17/2020 11:22 PM CDT HC TSH SCREEN Routine 01/17/2020 10:50 PM CDT HC TROPONIN-I STAT 01/17/2020 10:50 PM CDT HC B-TYPE NATRIURETIC Routine 01/17/2020 PEPTIDE 10:50 PM CDT HC PHOSPHOROUS, SERUM Routine 01/17/2020 10:50 PM CDT HC MAGNESIUM STAT 01/17/2020 10:50 PM CDT HC COMPREHENSIVE STAT 01/17/2020 METABOLIC PANEL 10:50 PM CDT HC PTT(APTT) Routine 01/17/2020 10:50 PM CDT HC PT(INR) Routine 01/17/2020 10:50 PM CDT HC CBC W/ AUTOMATED DIFF STAT 01/17/2020 10:50 PM CDT GENERAL RAD CHEST Routine 01/17/2020 EXTERNAL IMAGING 12:00 AM CDT TELEMETRY STRIPS-SCAN 01/17/2020 12:00 AM CDT TELEMETRY STRIPS-SCAN 01/17/2020 12:00 AM CDT TELEMETRY STRIPS-SCAN 01/17/2020 12:00 AM CDT TELEMETRY STRIPS-SCAN 01/17/2020 12:00 AM CDT TELEMETRY STRIPS-SCAN 01/17/2020 12:00 AM CDT TELEMETRY STRIPS-SCAN 01/17/2020 12:00 AM CDT ECG-SCAN 01/17/2020 12:00 AM CDT ECG-SCAN 01/17/2020 12:00 AM CDT ECG-SCAN 01/17/2020 12:00 AM CDT ECG-SCAN 01/17/2020 12:00 AM CDT ECG-SCAN 01/17/2020 12:00 AM CDT ECG-SCAN 01/17/2020 12:00 AM CDT ECG-SCAN 01/17/2020 12:00 AM CDT ECG-SCAN 01/17/2020 12:00 AM CDT from Last 3 Months Results * ECG-SCAN (03/01/2020 12:00 AM CDT) Narrative Performed At This result has an attachment that is n ot available. Ordered by an unspecified provider. * CBC AND DIFF (02/23/2020 5:14 AM CDT) Only the most recent of 10 results within the time period is included. White Blood 8.2 4.5 - 11.0 K/UL [facility] Cells RBC 4.62 4.4 - 5.5 M/UL [facility] Hemoglobin 13.0 (L) 13.5 - 16.5 GM/DL [facility] Hematocrit 38.7 (L) 40 - 50 % [facility] MCV 83.7 80 - 100 FL [facility] MCH 28.0 26 - 34 PG [facility] MCHC 33.5 32.0 - 36.0 G/DL [facility] RDW 14.8 11 - 15 % [facility] Platelet Count 441 (H) 150 - 400 K/UL [facility] MPV 8.2 7 - 11 FL [facility] Neutrophils 56 41 - 77 % [facility] Lymphocytes 21 (L) 24 - 44 % [facility] Monocytes 12 4 - 12 % [facility] Eosinophils 10 (H) 0 - 5 % [facility] Basophils 1 0 - 2 % [facility] Absolute 4.56 1.8 - 7.0 K/UL [facility] Neutrophil Count Absolute Lymph 1.73 1.0 - 4.8 K/UL [facility] Count Absolute 1.00 (H) 0 - 0.80 K/UL [facility] Monocyte Count Absolute 0.80 (H) 0 - 0.45 K/UL [facility] Eosinophil Count Absolute 0.09 0 - 0.20 K/UL [facility] Basophil Count Specimen Blood Performing Organization Address [facility] Ph one Number [facility] [address] [place] [address] * MAGNESIUM (02/23/2020 5:14 AM CDT) Only the most recent of 11 results within the time period is included. Magnesium 2.1 1.6 - 2.6 mg/dL [facility] Specimen Blood Performing Organization Address [facility] Ph one Number [facility] [address] [place] [address] * BASIC METABOLIC PANEL (02/23/2020 5:14 AM CDT) Only the most recent of 2 results within the time period is included. Sodium 141 137 - 147 MMOL/L [facility] Potassium 4.3 3.5 - 5.1 MMOL/L [facility] Chloride 109 98 - 110 MMOL/L [facility] CO2 23 21 - 30 MMOL/L [facility] Anion Gap 9 3 - 12 [facility] Glucose 99 70 - 100 MG/DL [facility] Blood Urea 18 7 - 25 MG/DL [facility] Nitrogen Creatinine 1.08 0.4 - 1.24 MG/DL [facility] Calcium 8.4 (L) 8.5 - 10.6 MG/DL [facility] eGFR Non >60 >60 mL/min [facility] Comment: [employer] The eGFR is not validated f or use in drug dosing adjustments. Continue to use estimated creatinine clearance per dosing reference text. Please contact the Clinical Pharmacist for questions. eGFR >60 >60 mL/min [facility] [employer] Comment: The eGFR is not validated for use in drug dosing adjustments. Continue to use estimated creatinine clearance per dosing reference text. Please contact the Clinical Pharmacist for questions. Specimen Blood Performing Organization Address [facility] one Number [facility] [address] [place] [address] * TROPONIN-I (02/21/2020 4:45 AM CDT) Only the most recent of 9 results within the time period is included. Troponin-I 0.07 (H) 0.0 - 0.05 NG/ML [facility] Specimen Blood Performing Organization Address [facility] one Number [facility] [address] [place] [address] * PHENCYCLIDINES-URINE RANDOM (02/21/2020 3:00 AM CDT) Phencyclidine NEG NEG-NEG [facility] (PCP) Comment: RESULTS WERE OBTAINED BY IMMUNOASSAY AND ARE PRESUMPTIVE ONLY. POSITIVE INDICATES THE PRESENCE OF SUBSTANCE WITH CHARACTERISTICS SIMILAR TO DRUG-DRUG CLASS OR METABOLITE IN CONC. EQUAL TO OR EXCEEDING VALUES LISTED. PHENCYCLIDINE (PCP) 25 NG/ML Specimen Urine - Urine Narrative Performed At This result has an attachment that is n ot available. Performing Organization Address [facility] one Number [facility] [address] [place] [address] * OPIATES-URINE RANDOM (02/21/2020 3:00 AM CDT) Opiates-Urine POS (A) NEG-NEG [facility] Comment: RESULTS WERE OBTAINED BY IMMUNOASSAY AND ARE PRESUMPTIVE ONLY. POSITIVE INDICATES THE PRESENCE OF SUBSTANCE WITH CHARACTERISTICS SIMILAR TO DRUG-DRUG CLASS OR METABOLITE IN CONC. EQUAL TO OR EXCEEDING VALUES LISTED. OPIATES 2000 NG/ML Specimen Urine - Urine Performing Organization Address [facility] one Number [facility] [address] [place] [address] * COCAINE-URINE RANDOM (02/21/2020 3:00 AM CDT) Cocaine-Urine NEG NEG-NEG [facility] Comment: RESULTS WERE OBTAINED BY IMMUNOASSAY AND ARE PRESUMPTIVE ONLY. POSITIVE INDICATES THE PRESENCE OF SUBSTANCE WITH CHARACTERISTICS SIMILAR TO DRUG-DRUG CLASS OR METABOLITE IN CONC. EQUAL TO OR EXCEEDING VALUES LISTED. COCAINE 300 NG/ML Specimen Urine - Urine Performing Organization Address [facility] Ph one Number [facility] [address] [place] [address] * CANNABINOIDS-URINE RANDOM (02/21/2020 3:00 AM CDT) THC NEG NEG-NEG [facility] Comment: RESULTS WERE OBTAINED BY IMMUNOASSAY AND ARE PRESUMPTIVE ONLY. POSITIVE INDICATES THE PRESENCE OF SUBSTANCE WITH CHARACTERISTICS SIMILAR TO DRUG-DRUG CLASS OR METABOLITE IN CONC. EQUAL TO OR EXCEEDING VALUES LISTED. CANNABINOIDS 50 NG/ML Specimen Urine - Urine Performing Organization [facility] Ph one Susanne FRITZ [facility] [address] [place] [address] * BENZODIAZEPINES-URINE RANDOM (02/21/2020 3:00 AM CDT) Benzodiazepines POS (A) NEG-NEG [facility] Comment: RESULTS WERE OBTAINED BY IMMUNOASSAY AND ARE PRESUMPTIVE ONLY. POSITIVE INDICATES THE PRESENCE OF SUBSTANCE WITH CHARACTERISTICS SIMILAR TO DRUG-DRUG CLASS OR METABOLITE IN CONC. EQUAL TO OR EXCEEDING VALUES LISTED. BENZODIAZEPINES 200 NG/ML Specimen Urine - Urine Performing Organization Address [facility] Ph one Susanne FRITZ [facility] [address] [place] [address] * BARBITURATES-URINE RANDOM (02/21/2020 3:00 AM CDT) Barbiturates,Ur NEG NEG-NEG [facility] ine Comment: RESULTS WERE OBTAINED BY IMMUNOASSAY AND ARE PRESUMPTIVE ONLY. POSITIVE INDICATES THE PRESENCE OF SUBSTANCE WITH CHARACTERISTICS SIMILAR TO DRUG-DRUG CLASS OR METABOLITE IN CONC. EQUAL TO OR EXCEEDING VALUES LISTED. BARBITURATES 200 NG/ML Specimen Urine - Urine Performing Organization Address [facility] Ph one Susanne FRITZ [facility] [address] [place] [address] * AMPHETAMINES-URINE RANDOM (02/21/2020 3:00 AM CDT) Amphetamines NEG NEG-NEG [facility] Comment: RESULTS WERE OBTAINED BY IMMUNOASSAY AND ARE PRESUMPTIVE ONLY. POSITIVE INDICATES THE PRESENCE OF SUBSTANCE WITH CHARACTERISTICS SIMILAR TO DRUG-DRUG CLASS OR METABOLITE IN CONC. EQUAL TO OR EXCEEDING VALUES LISTED. AMPHETAMINES 1000 NG/ML Specimen Urine - Urine Performing Organization Address City/State/Zipcode Ph one Number [facility] [address] [place] [address] * CHEST SINGLE VIEW (02/21/2020 12:37 AM CDT) Specimen Impressions Performed At Stable chest radiograph demonstrating no acute cardio pulmonary abnormalities. [facility] Finalized by Noe Amezquita M.D. on 020 8:31 AM. Dictated by Noe Amezquita M.D. on 02/21/2020 8:30 AM. Narrative Performed At CHEST SINGLE VIEW [facility] History: chest pain, atrial fibrillation. Technique: Single portable AP upright view of the chest was obtained. Comparison: Comparison is made to an examination of 01/17/2020. Findings: Cardiac size and configuration are stab le. There is no vascular congestion. No acute interstitial or alveolar opacitie s are identified. No parenchymal masses are detected. Hilar and mediastinal con figurations are normal. There is no pleural fluid. No pneumothorax is ident ified. Procedure Note Interface, Radiant Results - 02/21/2020 8:34 AM CDT CHEST SINGLE VIEW History: chest pain, atrial fibrillation. Technique: Single portable AP upright view of the chest was obtained. Comparison: Comparison is made to an examination of 01/17/2020. Findings: Cardiac size and configuration are stable. There is no vascular congestion. No acute interstitial or alveolar opacities are identified. No parenchymal masses are detected. Hilar and mediastinal configurations are normal. There is no pleural fluid. No pneumothorax is identified. IMPRESSION Stable chest radiograph demonstrating no acute cardiopulmonary abnormalities. Finalized by Noe Amezquita M.D. on 02/21/2020 8:31 AM. Dictated by Noe Amezquita M.D. on 02/21/2020 8:30 AM. Performing Organization Address City/State/Zipcode Ph one Number [facility] RESULTS * COVID-19 (SARS-COV-2) PCR (02/20/2020 11:33 PM CDT) Only the most recent of 2 results within the time period is included. COVID-19 NASOPHARYNGEAL SWAB [facility] (SARS-CoV-2) PCR Source COVID-19 NOT DETECTED DN-NOT DETECTED [facility] (SARS-CoV-2) Comment: PCR This assay is designed to detect the N and/or RdRp genes of SARS-CoV-2 using nucleic acid amplification. A "Not Detected" result does not preclude the possibility of SARS-CoV-2 infection since the adequacy of sample collection and/or low viral burden may result in the presence of viral nucleic acids below the analytical sensitivity of this test method. Test results should be used along with other clinical and laboratory data in making the diagnosis. Test parameters have not been validated for screening in asymptomatic patients. This test is authorized for use under the FDA Emergency Use Authorization and performance characteristics have been verified by the [facility]. Fact sheet for providers: https://www.fda.gov/media/6848 56/download Fact sheet for patients: https://www.fda.gov/media/1745 57/download Specimen Nasopharyngeal Swab Performing Organization [facility] one Number [facility] [address] [place] [address] * FREE T4-FREE THYROXINE (02/20/2020 11:33 PM CDT) T4-Free 1.2 0.6 - 1.6 NG/DL [facility] Specimen Performing [facility] one Number [facility] [address] [place] [address] * TSH WITH FREE T4 REFLEX (02/20/2020 11:33 PM CDT) Only the most recent of 3 results within the time period is included. TSH 10.27 (H) 0.35 - 5.00 MCU/ML [facility] Specimen Blood Performing [facility] one Number [facility] [address] [place] [address] * PTT (APTT) (02/20/2020 11:33 PM CDT) Only the most recent of 2 results within the time period is included. APTT 32.4 24.0 - 36.5 SEC [facility] Specimen Blood Performing [facility] one Number MAIN LAB [address] [place] [address] * PROTIME INR (PT) (02/20/2020 11:33 PM CDT) Only the most recent of 6 results within the time period is included. INR 1.3 (H) 0.8 - 1.2 [facility] Specimen Blood Performing Organization Address [facility] one Number [facility] [address] [place] [address] * PHOSPHORUS (02/20/2020 11:33 PM CDT) Only the most recent of 2 results within the time period is included. Phosphorus 2.7 2.0 - 4.5 MG/DL [facility] Specimen Blood Performing Organization Address [facility] one Number [facility] [address] [place] [address] * COMPREHENSIVE METABOLIC PANEL (02/20/2020 11:33 PM CDT) Only the most recent of 8 results within the time period is included. Sodium 141 137 - 147 MMOL/L [facility] Potassium 3.8 3.5 - 5.1 MMOL/L [facility] Chloride 111 (H) 98 - 110 MMOL/L [facility] Glucose 91 70 - 100 MG/DL [facility] Blood Urea 16 7 - 25 MG/DL [facility] Nitrogen Creatinine 1.27 (H) 0.4 - 1.24 MG/DL [facility] Calcium 8.9 8.5 - 10.6 MG/DL [facility] Total Protein 6.4 6.0 - 8.0 G/DL [facility] Total Bilirubin 0.6 0.3 - 1.2 MG/DL [facility] Albumin 3.9 3.5 - 5.0 G/DL [facility] Alk Phosphatase 78 25 - 110 U/L [facility] AST (SGOT) 18 7 - 40 U/L [facility] CO2 19 (L) 21 - 30 MMOL/L [facility] ALT (SGPT) 14 7 - 56 U/L [facility] Anion Gap 11 3 - 12 [facility] eGFR Non 58 (L) >60 mL/min [facility] Comment: [facility] The eGFR is not validated f or use in drug dosing adjustments. Continue to use estimated creatinine clearance per dosing reference text. Please contact the Clinical Pharmacist for questions. eGFR >60 >60 mL/min [facility] Comment: The eGFR is not validated for use in drug dosing adjustments. Continue to use estimated creatinine clearance per dosing reference text. Please contact the Clinical Pharmacist for questions. Specimen Blood Performing Organization Address [facility] one Number [facility] [address] [place] [address] * GENERAL RAD CHEST EXTERNAL IMAGING (02/20/2020 12:00 AM CDT) Only the most recent of 2 results within the time period is included. Specimen Narrative Performed At This order has been auto finalized and does not contain a result. * TELEMETRY STRIPS-SCAN (02/20/2020 12:00 AM CDT) Narrative Performed At This result has an attachment that is n ot available. Ordered by an unspecified provider. * BNP (B-TYPE NATRIURETIC PEPTI) (02/02/2020 2:33 AM CDT) Only the most recent of 2 results within the time period is included. B Type 184.0 (H) 0 - 100 PG/ML MAIN LAB Natriuretic Peptide Specimen Blood Performing Organization Address [facility] one Number MAIN LAB [address] [place] [address] * HEMOGLOBIN A1C (02/02/2020 2:33 AM CDT) Only the most recent of 2 results within the time period is included. Hemoglobin A1C 5.6 4.0 - 6.0 % MAIN LAB Comment: The ADA recommends that most patients with type 1 and type 2 diabetes maintain an A1c level <7%. Specimen Blood Performing Organization Address [facility] one Number MAIN LAB [address] [place] [address] * LIPID PROFILE (02/02/2020 2:33 AM CDT) Only the most recent of 2 results within the time period is included. Cholesterol 128 <200 MG/DL MAIN LAB Triglycerides 82 <150 MG/DL [facility] MAIN [facility] HDL 30 (L) >40 MG/DL MAIN LAB LDL 76 <100 mg/dL [facility] MAIN [facility] VLDL 16 MG/DL [facility] MAIN [facility] Non HDL 98 MG/DL MAIN LAB Cholesterol Comment: Calculated non-HDL Cholesterol (non-HDL-C) indirectly measures LDL-C, Lp(a), IDL-C, and VLDL-C. It is a surrogate marker for Apoprotein B. Goal should be less than 130 mg/dL. Specimen Performing Organization Address [facility]/Zipcode Ph one Number [facility] MAIN LAB [address] [place] [address] * TELEMETRY STRIPS-SCAN (02/02/2020 12:00 AM CDT) Narrative Performed At This result has an attachment that is n ot available. Ordered by an unspecified provider. * ECG-SCAN (02/02/2020 12:00 AM CDT) Narrative Performed At This result has an attachment that is n ot available. Ordered by an unspecified provider. * ECG-SCAN (01/20/2020 12:00 AM CDT) Narrative Performed At This result has an attachment that is n ot available. Ordered by an unspecified provider. * ECG-SCAN (01/20/2020 12:00 AM CDT) Narrative Performed At This result has an attachment that is n ot available. Ordered by an unspecified provider. * ECG-SCAN (01/20/2020 12:00 AM CDT) Narrative Performed At This result has an attachment that is n ot available. Ordered by an unspecified provider. * ECG-SCAN (01/20/2020 12:00 AM CDT) Narrative Performed At This result has an attachment that is n ot available. Ordered by an unspecified provider. * POC GLUCOSE (01/18/2020 8:45 PM CDT) Glucose, POC 94 70 - 100 MG/DL MAIN LAB Specimen Performing Organization Address [facility] one Number MAIN LAB [address] [place] [address] * 2D + DOPPLER ECHO (01/18/2020 9:49 AM CDT) IVS 1.31 0.6 - 1.0 cm OTHER OUTSIDE LAB LVIDD 5.25 4.2 - 5.8 cm OTHER OUTSIDE LAB LVIDS 3.94 2.5 - 4.0 cm OTHER OUTSIDE LAB PW 1.34 0.6 - 1.0 cm OTHER OUTSIDE LAB Left Ventricle 99.29 62 - 150 mL OTHER OUTSIDE Diastolic LAB Volume Left Ventricle 45.13 34 - 74 mL OTHER OUTSIDE Diastolic LAB Volume Index Left Ventricle 41.45 21 - 61 mL OTHER OUTSIDE Systolic Volume LAB Left Ventricle 18.84 11 - 31 mL OTHER OUTSIDE Systolic Volume LAB Index TDI lateral e' 0.13 m/s OTHER OUTSIDE LAB Right 2.85 1.9 - 3.5 cm OTHER OUTSIDE Ventricular Mid LAB Diameter LA size 3.75 3.0 - 4.0 cm OTHER OUTSIDE LAB LA volume 54.94 18 - 58 mL OTHER OUTSIDE LAB Right Atrial 19.38 <18 cm2 OTHER OUTSIDE Area LAB Right Atrial 5.41 2.1 - 2.7 cm OTHER OUTSIDE Major Dimension LAB AV peak 1.07 m/s OTHER OUTSIDE velocity LAB MV Peak A Lalo 0.42 m/s OTHER OUTSIDE LAB MV Peak E Lalo 0.90 m/s OTHER OUTSIDE PW LAB Right 3.26 2.5 - 4.1 cm OTHER OUTSIDE Ventricular LAB Basal Diameter Right Heart 0.10 m/s OTHER OUTSIDE Systolic TDI S' LAB Right Heart 1.45 >1.7 cm OTHER OUTSIDE Systolic Mmode LAB TAPSE Ao root annulus 2.04 2.0 - 3.2 cm OTHER OUTSIDE LAB Sinus 4.31 2.8 - 4.0 cm OTHER OUTSIDE LAB STJ 3.35 2.3 - 3.5 cm OTHER OUTSIDE LAB Ascending aorta 3.40 cm OTHER OUTSIDE LAB BSA 2.2 m2 OTHER OUTSIDE LAB FS 24.95 28 - 44 % OTHER OUTSIDE LAB EF 42.42 % OTHER OUTSIDE LAB Proximal aorta 3.7 2.6 - 3.8 cm OTHER OUTSIDE LAB Aortic arch 2.6 cm OTHER OUTSIDE LAB LV mass 290.42 88 - 224 g OTHER OUTSIDE LAB RWT 0.51 <=0.42 OTHER OUTSIDE LAB E/A ratio 2.14 OTHER OUTSIDE LAB Lateral E/E' 6.92 OTHER OUTSIDE ratio LAB Left Atrium 24.97 16 - 34 OTHER OUTSIDE Index LAB Cardiology Siemens [id number] OTHER OUTSIDE Ultrasound LAB Machine Left Ventricle 132.01 49 - 115 g/m2 OTHER OUTSIDE Mass Index LAB TDI Medial e' 0.080 m/s OTHER OUTSIDE LAB Medial E/E' 11.25 OTHER OUTSIDE ratio LAB ECHO EF 58 % OTHER OUTSIDE LAB Specimen Narrative Performed At OTHER OUTSIDE LAB Left Ventricle: Normal size. Mild co ncentric hypertrophy. Normal ejection fraction. LV endocardial borde r difficult to visualize due to body habitus. Overall ejection fraction appears to be normal 60%. No obvious regional wall motion abnormalit ies. Right Ventricle: Normal size and eje ction fraction. No hemodynamically significant valvu lar abnormalities. Aorta: The sinuses of Valsalva are m ildly dilated. Normal central venous pressure (0-5 mm Hg). No major changes from prior study 2018, EF slightly improved. Performing Organization Address [facility] one Number OTHER OUTSIDE LAB * UA REFLEX CULTURE LABEL (01/18/2020 3:50 AM CDT) UA Reflex Criteria for reflex to culture [facility] MARK N LAB Culture are WBC>10, Positive Nitrit e, and/or >=+1 leukocytes. If quantity is not sufficient, an addendum will follow. Specimen Urine Performing Organization Address [facility] one Number [facility] MAIN LAB [address] [place] [address] * URINALYSIS MICROSCOPIC REFLEX TO CULTURE (01/18/2020 3:50 AM CDT) WBCs,UA 0-2 0 - 2 /HPF [facility] MAIN LAB RBCs,UA 0-2 0 - 3 /HPF [facility] MAIN LAB Comment,UA Criteria for reflex to culture [facility] N [facility] are WBC>10, Positive Nitrite, and/or >=+1 leukocytes. If quantity is not sufficient, an addendum will follow. MucousUA 2+ [facility] MAIN LAB Specimen Urine Performing Organization Address [facility] Ph one Number [facility] MAIN LAB [address] [place] [address] * URINALYSIS DIPSTICK REFLEX TO CULTURE (01/18/2020 3:50 AM CDT) Color,UA YELLOW [facility] MAIN [facility] Turbidity,UA CLEAR CLEAR-CLEAR [facility] MAIN [facility] Specific 1.019 1.003 - 1.035 [facility] MAIN LAB Warren-Urine pH,UA 5.0 5.0 - 8.0 [facility] MAIN LAB Protein,UA NEG NEG-NEG [facility] MAIN [facility] Glucose,UA NEG NEG-NEG [facility] MAIN [facility] Ketones,UA NEG NEG-NEG [facility] MAIN [facility] Bilirubin,UA NEG NEG-NEG [facility] MAIN [facility] Blood,UA NEG NEG-NEG [facility] MAIN [facility] Urobilinogen,UA NORMAL NORM-NORMAL [facility] MAIN [facility] Nitrite,UA NEG NEG-NEG [facility] MAIN [facility] Leukocytes,UA NEG NEG-NEG [facility] MAIN LAB Urine Ascorbic NEG NEG-NEG [facility] MAIN LAB Acid, UA Specimen Urine Performing Organization Address [facility] Ph one Number [facility] MAIN LAB [address] [place] [address] * CHEST 2 VIEWS (01/17/2020 11:22 PM CDT) Specimen Impressions Performed At No acute cardiopulmonary process. [facility] RAD RESULTS Finalized by Kandi Plata M.D. on 7:02 AM. Dictated by Kandi Plata M.D. on 01/18/2020 7:00 AM. Narrative Performed At CHEST 2 VIEWS [facility] RAD RESULTS INDICATION: cardiac arrythmia. COMPARISON STUDY: 05/30/2019. FINDINGS: Lungs: The lung volume is normal. No fo hema airspace disease. Pleura: No pleural effusion or pneumoth orax. Heart and Mediastinum: The cardiomedias tinal silhouette and great vessels are stable. Skeletal Structures and Soft Tissues: M ild degenerative changes in the thoracic spine. Left upper quadrant surgical cli ps. Procedure Note Interface, Radiant Results - 01/18/2020 7:05 AM CDT CHEST 2 VIEWS INDICATION: cardiac arrythmia. COMPARISON STUDY: 05/30/2019. FINDINGS: Lungs: The lung volume is normal. No focal airspace disease. Pleura: No pleural effusion or pneumothorax. Heart and Mediastinum: The cardiomediastinal silhouette and great vessels are stable. Skeletal Structures and Soft Tissues: Mild degenerative changes in the thoracic spine. Left upper quadrant surgical clips. IMPRESSION No acute cardiopulmonary process. Finalized by Kandi Plata M.D. on 01/18/2020 7:02 AM. Dictated by Kandi Plata M.D. on 01/18/2020 7:00 AM. Performing Organization Address [facility] one Number [facility] RAD RESULTS * TELEMETRY STRIPS-SCAN (01/17/2020 12:00 AM CDT) Narrative Performed At This result has an attachment that is n ot available. Ordered by an unspecified provider. * TELEMETRY STRIPS-SCAN (01/17/2020 12:00 AM CDT) Narrative Performed At This result has an attachment that is n ot available. Ordered by an unspecified provider. * TELEMETRY STRIPS-SCAN (01/17/2020 12:00 AM CDT) Narrative Performed At This result has an attachment that is n ot available. Ordered by an unspecified provider. * TELEMETRY STRIPS-SCAN (01/17/2020 12:00 AM CDT) Narrative Performed At This result has an attachment that is n ot available. Ordered by an unspecified provider. * TELEMETRY STRIPS-SCAN (01/17/2020 12:00 AM CDT) Narrative Performed At This result has an attachment that is n ot available. Ordered by an unspecified provider. * TELEMETRY STRIPS-SCAN (01/17/2020 12:00 AM CDT) Narrative Performed At This result has an attachment that is n ot available. Ordered by an unspecified provider. * ECG-SCAN (01/17/2020 12:00 AM CDT) Narrative Performed At This result has an attachment that is n ot available. Ordered by an unspecified provider. * ECG-SCAN (01/17/2020 12:00 AM CDT) Narrative Performed At This result has an attachment that is n ot available. Ordered by an unspecified provider. * ECG-SCAN (01/17/2020 12:00 AM CDT) Narrative Performed At This result has an attachment that is n ot available. Ordered by an unspecified provider. * ECG-SCAN (01/17/2020 12:00 AM CDT) Narrative Performed At This result has an attachment that is n ot available. Ordered by an unspecified provider. * ECG-SCAN (01/17/2020 12:00 AM CDT) Narrative Performed At This result has an attachment that is n ot available. Ordered by an unspecified provider. * ECG-SCAN (01/17/2020 12:00 AM CDT) Narrative Performed At This result has an attachment that is n ot available. Ordered by an unspecified provider. * ECG-SCAN (01/17/2020 12:00 AM CDT) Narrative Performed At This result has an attachment that is n ot available. Ordered by an unspecified provider. * ECG-SCAN (01/17/2020 12:00 AM CDT) Narrative Performed At This result has an attachment that is n ot available. Ordered by an unspecified provider. 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 02/21/2020 1:07 AM Full Code 02/21/2020 12:08 AM Provider has discussed Code Status No, more discussi on w/Patient or Family? needed 02/02/2020 5:58 PM Full Code 02/02/2020 2:01 AM Provider has discussed Code Status No, more discussi on w/Patient or Family? needed 01/22/2020 2:25 PM Full Code 01/18/2020 5:40 PM Provider has discussed Code Status Yes w/Patient or Family? 01/18/2020 5:40 PM Full Code 01/17/2020 9:52 PM Provider has discussed Code Status No, more discussi on w/Patient or Family? needed
--- OUTSIDE RECORDS SUMMARY | 2020-03-11 20:45 | XMS REPORT | Encounter Summary ---
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 Name Role Phone Sherman Spicer MD Unavailable Reyna Bond Unavailable Unavailable Indiana Bauer APRN PCP Unavailable Reason for Visit * Reason Comments Follow Up unsure of reason of call, L M to c/b Encounter Details Care Team Description Date Type Department Ya Howard RN Follow Up (unsure of reason of call, LM to c/b) 03/11/2020 Telephone [facility] [address] [place] [facility] [place] [id number] Social History Date Tobacco Use Types Packs/Day [...] Telephone Encounter - Ya Howard RN - 03/11/2020 4:38 PM CDT left message to return call * Telephone Encounter - Ya Howard RN - 03/11/2020 4:38 PM CDT ----- Message from Mercy Carbajal LPN sent at 03/11/2020 2:02 PM CDT ----- Regarding: PATRICK NEGRETE from patient on triage line returning our call. Message was garbled and only got out do same day. Call him at #[phone]. documented in this encounter Plan of Treatment [...]
--- OUTSIDE RECORDS SUMMARY | 2020-03-11 20:46 | XMS REPORT | Encounter Summary ---
Author Author [facility] Organization [facility] Address Unknown Phone Unavailable Care Team Providers Care Figure Clerk Name Role Phone Sherman Spicer MD Unavailable Reyna Bond Unavailable Unavailable Indiana Bauer APRN PCP Unavailable Reason for Visit * Auth/Cert Referred By Contact Referred To Contact Status Reason Specialty Diagnoses / Procedures Diagnoses Atrial fibrillation with RVR (HCC) CP/a fib with RVR Encounter Details Care Team Description Date Type Department Maine Howard MD [address] [facility] [id number] [place] [address] [phone] [place] [address] [facility] [place] [address] [place] [address] [phone] Atrial flutter with rapid ventricular re sponse (HCC) 02/20/2020 [facility] 02/23/2020 [address] [place] [address] Social History Date Tobacco Use Types Packs/Day [...] Signs Reading Time Taken Comments Vital Sign 112/80 02/23/2020 11:38 AM CDT Blood Pressure 85 02/23/2020 8:19 AM CDT Pulse 36.3 C (97.4 F) 02/23/2020 8:19 AM CDT Temperature - - Respiratory Rate 97% 02/23/2020 8:19 AM CDT Oxygen Saturation - - Inhaled Oxygen Concentration 95.3 kg (210 lb 3.2 oz) 02/21/2020 12:00 AM CDT Weight 183 cm (6' 0.05") 02/21/2020 12:00 AM CDT Height 28.47 02/21/2020 12:00 AM CDT Body Mass Index documented in this encounter Functional Status Date of Assessment Functional Status Response 02/21/2020 Does the patient have a hearing impairment: No documented as of this encounter Discharge Summaries * Nelly Rodriguez MD - 02/23/2020 11:40 AM CDT Physician Discharge Summary Name: David Rice Date Of : 1960 Age: 59 years Admit date: 02/20/2020 Discharge date: 02/23/2020 Attending Physician: Nelly Rodriguez MD Service: Cardiology-[address] [place] [address]/[facility] 2634 Physician Summary completed by: Tripp Martinez MD Reason for hospitalization: Atrial fibrillation with RVR Significant PMH: Medical History: Diagnosis Date Arrhythmia Atrial fibrillation Disorder of thyroid gland Diverticulitis Diverticulosis Hepatitis Hepatitis C Hyperlipidemia Hypertension Mesenteric thrombosis (HCC) 2010 SHABANA (obstructive sleep apnea) Psychiatric illness anxiety Pulmonary embolism (HCC) 2010 Allergies: Contrast dye iv, iodine containing [iodinated contrast media] Admission Physical Exam notable for: CV: irregularly irregular rhythm, tachycar naomi Admission Lab/Radiology studies notable for: Troponin 0.08 Brief Hospital Course: David Riceis a 59 y.o.malewith medical history of atrial fibrillation/f lutters/p ablation05/25/2019, HTN, anxiety, chronic back pain, chronic headach es, chronic nausea, chronic malaise, hypothyroidism, PE and 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 He was placed on IV diltiazem prior to transfer which reso lved his A.fib with RVR and he was transitioned to PO diltiazem CD 180 mg. Histo ry of intolerance to diltiazem previously (dizziness) and began to re-experience dizziness and worsneing nausea. EP discussed option of ablation however patient unable to decide if wants this. Initially plan was to continue medical manageme nt until re-discussion with Dr. Rodriguez in clinic about ablation however on day of discharge, due to persistent intolerance to diltiazem and declining to try other medications such as beta diana since he has intolerance to that as well, he elected to discontinue diltiazem and will discuss next steps in therapy with Dr. Rodriguez at currently scheduled outpatient appointment on 03/01. No changes made to CD REACTOR OPERATOR medications and will continue CD REACTOR OPERATOR Tikosyn and Eliquis on discharge. Condition at Discharge: Stable Discharge Diagnoses: Hospital Problems Active Problems * (Principal) Atrial flutter with rapid ventricular response (HCC) Essential hypertension Hyperlipidemia Hypothyroid Chronic back pain Anxiety History of pulmonary embolus (PE) Type 2 NSTEMI (non-ST elevated myocardial infarction) (HCC) Chronic headaches Surgical Procedures: None Significant Diagnostic Studies and Procedures: noted in brief hospital course Consults: Cardiology - EP Patient Disposition: Home Patient instructions/medications: Cardiac Diet Limiting unhealthy fats and cholesterol is the most important step you can take in reducing your risk for cardiovascular disease. Unhealthy fats include satur ated and trans fats. Monitor your sodium and cholesterol intake. Restrict your sodium to 2g (grams) or 2000mg (milligrams) daily, and your cholesterol to 200mg daily. If you have questions regarding your diet at home, you may contact a dietitian wilder t . Report These Signs and Symptoms Please contact your doctor if you have any of the following symptoms: temperatu re higher than 100.4 degrees F, uncontrolled pain, persistent nausea and/or vomi ting or difficulty breathing Risk Reduction Plan Cardiac Event Personal Risk Factor Reduction Plan Take this sheet to your physician to show treatment recommendations David Rice Admission Date: 02/20/2020 LOS: @LOS@ Blood Pressure Risk Goal: Keep blood pressure below 130/80 Your Numbers: BP Readings from Last 1 Encounters: 20 : 122/83 Plan: High blood pressure is the single most important risk factor for cardiac e vents because it's the #1 cause of cardiac events. Take medication as prescribe d and monitor your blood pressure. Abnormal lipids (fats in blood) Risk Goal: Total Cholesterol: <200 LDL (bad cholesterol): primary prevention <100 LDL (bad cholesterol): secondary prevention < 70 HDL ("good" cholesterol): >40 for men, >50 for women Triglycerides: <150 Your Numbers: Cholesterol Date Value Ref Range Status 02/02/2020 128 <200 MG/DL Final LDL Date Value Ref Range Status 02/02/2020 76 <100 mg/dL Final HDL Date Value Ref Range Status 02/02/2020 30 (L) >40 MG/DL Final Triglycerides Date Value Ref Range Status 02/02/2020 82 <150 MG/DL Final Plan: Diets high in saturated fat, trans fat and cholesterol can raise blood cho lesterol levels increasing your risk of having a cardiac event. Take medication as prescribed and eat a heart healthy, low sodium diet. Smoking Risk Goals: If you smoke, STOP! Plan: Smoking DOUBLES your risk of having a cardiac event. Quitting can greatly reduce your risk. To register for smoking cessation program call [phone] or visit www.smokefree.gov Diabetes Risk Goal: Non-diabetic: Below 5.7% Goal for diabetic: Less than 7% Your Numbers: Hemoglobin A1C Date Value Ref Range Status 02/02/2020 5.6 4.0 - 6.0 % Final Comment: The ADA recommends that most patients with type 1 and type 2 diabetes maintain an A1c level <7%. Plan: If you have diabetes, even if treated, you are at an increased risk of hav ing a cardiac event. Alcohol Use Risk Goal: Alcohol use can lead to a cardiac event. Plan: For men, limit intake to no more than 2 drinks per day. For women, limit intake to no more than one drink per day. Weight Management Risk Goal: Healthy: BMI is 18.5 to 24.9 Overweight: BMI is 25 to 29.9 Obese: BMI is 30 or higher Morbid Obesity: BMI [...] Your Numbers: Your BMI (Calculated): 28.47 Plan: If you have questions about your diet after you go home, you can call a ashtyn gill at [phone] Physical Activity Risk Goal: Patients should have approval by a physician prior to beginning an exercis e program. Plan: Try to get at least 30 minutes of moderate physical activity five days a w [place] or 20 minutes of vigorous physical activity three days a week with your doct or's approval. To the Neurology and the NeuroSurg Discharge order sets set add a new order in t he education section titled "Risk Reduction Plan", in the comments section add t he following (default select this new order for neuro and neuro surg and ensure this information is added to the AVS). Questions About Your Stay For questions or concerns regarding your hospital stay: - DURING BUSINESS HOURS (8:00 AM - 4:30 PM): Call [phone] and asked to be transferred to your discharge attending physic joni. - AFTER BUSINESS HOURS (4:30 PM - 8:00 AM, on weekends, or holidays): Call [phone] and ask the gristmill operator to page the on-call doctor for the discha rge attending physician. Discharging attending physician: NELLY RODRIGUEZ [[id number]] Activity as Tolerated It is important to keep increasing your activity level after you leave the hosp ital. Moving around can help prevent blood clots, lung infection (pneumonia) an d other problems. Gradually increasing the number of times you are up moving ar ound will help you return to your normal activity level more quickly. Continue to increase the number of times you are up to the chair and walking daily to ret urn to your normal activity level. Begin to work towards your normal activity le angelina at discharge. Current Discharge Medication List CONTINUE these medications which have NOT CHANGED Details ALPRAZolam (XANAX) 1 mg tablet Take one tablet by mouth three times daily as nee ded for Anxiety. PRESCRIPTION TYPE: No Print apixaban (ELIQUIS) 5 mg tablet Take one tablet by mouth twice daily. Qty: 60 tablet, Refills: 1 PRESCRIPTION TYPE: Normal ascorbic acid (vitamin C) (VITAMIN-C) 250 mg tablet Take 250 mg by mouth daily. PRESCRIPTION TYPE: Historical Med atorvastatin (LIPITOR) 40 mg tablet Take one tablet by mouth daily. Qty: 90 tablet, Refills: 0 PRESCRIPTION TYPE: Normal cholecalciferol (VITAMIN D-3) 1,000 units tablet Take 1,000 Units by mouth daily . PRESCRIPTION TYPE: Historical Med cyanocobalamin (VITAMIN B-12) 100 mcg tablet Take 100 mcg by mouth daily. PRESCRIPTION TYPE: Historical Med dofetilide (TIKOSYN) 125 mcg capsule Take one capsule by mouth twice daily. Merna cations: prevention of recurrent atrial fibrillation Qty: 120 capsule, Refills: 0 PRESCRIPTION TYPE: Normal levothyroxine (SYNTHROID) 50 mcg tablet Take 50 mcg by mouth daily 30 minutes be fore breakfast. PRESCRIPTION TYPE: Historical Med oxyCODONE (ROXICODONE) 10 mg tablet Take 10 mg by mouth every 3-4 hours as neede d for Pain PRESCRIPTION TYPE: Historical Med senna/docusate (SENOKOT-S) 8.6/50 mg tablet Take two tablets by mouth twice phoebe y. Qty: 60 tablet, Refills: 0 PRESCRIPTION TYPE: Normal Scheduled appointments: Mar 01, 2020 10:00 AM CDT Return Patient with Kelby Rodriguez MD [facility] (CVM Exam) [address] [facility] [address] May 16, 2020 8:00 AM CDT New Patient with Murtaza Allan DO [facility] ([facility]) [address] [address] Pending items needing follow up: None Signed: Tripp Martinez MD 02/23/2020 cc: Primary Care Physician: Indiana Bauer Verified Referring physicians: Self, Referral Additional provider(s): Cardiology Staff Physician I personally saw & evaluated this patient prior to discharge and formulated the discharge planning as outlined by the resident. I concur with the above documentation of the hospital course, summary and treatm ent plan unless otherwise noted. Nelly Rodriguez MD, FACC, FACP documented in this encounter Discharge Instructions * Patient Instructions* Kirsten Tamayo RN - 02/23/2020 11:11 AM CDT Apixaban (Eliquis) Information You will be discharged on apixaban. Apixaban is an anticoagulant medication ( blood thinner) that prevents your blood from clotting normally. Apixaban is used to prevent new blood clots or treat blood clots that have already formed . Why do I need to take apixaban? You may need to take apixaban if you have an abnormal heart rhythm (such as atri al fibrillation), had a stroke, heart attack, blood clot in your lungs or extrem ities, or if you are at high risk for developing new clots due to immobility or recent surgery. How do I take apixaban? It is very important you take apixaban exactly as prescribed. Try to take apixab an at the same times each day. If you forget to take a dose, take it as soon as you remember. If it is less than 6 hours before your next dose, skip the missed dose and return to your normal schedule with next dose. Do not take two apixaban doses at the same time. Do not stop taking apixaban, change your dose, or intentionally skip doses unles s instructed to do so by your healthcare provider. Does apixaban interact with any food, medications, or procedures? You can take apixaban with or without food. Grapefruit juice may increase the effect of apixaban and increase your bleeding risk. Avoid consuming grapefruit juice while taking apixaban. Some medications, including xbxl-eqj-wbrqshp (OTC) pain medications (such as nap roxen, ibuprofen, Aleve, Advil, Motrin), may increase your risk of bleedin g if taken with apixaban. Talk with your doctor or pharmacist before starting an y new OTC or prescription medications, vitamins, herbal products or supplements. Apixaban may need to be held prior to some procedures. Tell all your healthcare providers that you take apixaban and check with all providers prior to any proce dure to see if it is safe to continue apixaban. What adverse reactions should I be aware of? The most common unwanted reaction seen with apixaban is an increased risk of ble eding and bruising. You may bruise more easily, and it may take longer for any bleeding to stop. Fem irvin: You may notice heavier than normal menstrual cycles. To protect yourself, avoid activities that can put you at risk of falls, cuts, b ruising, or bleeding. Take extra precautions with daily activities such as sha ving, brushing teeth, gardening with tools, and using knives to prepare food. Female: If you are , considering getting , or are breast-feeding , talk with your healthcare provider about the risks and benefits of taking apix aban. When should I seek immediate medical attention? Call your doctor or go to the emergency department if you: Have any major trauma, fall or hit to your head. Even if you feel well you sh ould be evaluated for internal bleeding. Cough up blood. This may be a sign of a bleed in your lungs. Vomit bright red blood or what looks like coffee-grounds. This may be a sig n of a bleed in your stomach. Notice black tar-like stool or bright red blood with stool. This may be a sig h of a bleed in your intestines. Notice red, pink, or reddish-brown urine. This may be a sign of a bleed in yo ur urinary track. Have bleeding from nose, gums, wound, or cut that is very heavy or will not s top even with applied pressure. Female: Have heavy uncontrolled vaginal bleeding that is not your normal. Feel dizzy, tired, weak or pass out without an explanation. This may be a sig n of excessive blood loss. Have heavy pressure on your chest, difficulty breathing, or shortness of salvador th. This may be a sign of a clot in your lungs. Have sudden swelling, pain, redness, and extreme temperature change in your l eg. This may be a sign of a clot in your leg. Medicine Information - Tikosyn Read the Medication Guide before you start taking TIKOSYN and each time you get a refill. This information does not take the place of talking with your doctor a bout your condition or treatment. What is the most important information I should know about TIKOSYN? TIKOSYN can cause serious side effects, including a type of abnormal heartbeat c alled [place], which can lead to . To establish the right dose of TIKOSYN, treatment with TIKOSYN must be started i n a hospital where your heart rate and kidney function will be checked for the f irst 3 days of treatment. It is important that when you go home, you take the ex act dose of TIKOSYN that your doctor prescribed for you. While you take TIKOSYN, always watch for signs of abnormal heartbeat. Call your doctor and go to the hospital right away if you: Feel faint Become dizzy, or Have a fast heartbeat What is TIKOSYN? TIKOSYN is a prescription medicine that is used to treat an irregular heartbeat (atrial fibrillation or atrial flutter). It is not known if TIKOSYN is safe and effective in children under 18 years of a ge. Who should not take TIKOSYN? Do not take TIKOSYN if you: Have an irregular heartbeat called long QT syndrome Have kidney problems or are on kidney dialysis Take any of these medicines: ? cimetidine (TAGAMET, TAGAMET HB)* ? verapamil (CALAN, CALAN SR, COVERA-HS, ISOPTIN, ISOPTIN SR, VERELAN, VERELAN P M, TARKA)* ? ketoconazole (NIZORAL, XOLEGEL, EXTINA)* ? trimethoprim alone (PROLOPRIM, TRIMPEX)* or the combination of trimethoprim an d sulfamethoxazole (BACTRIM, SEPTRA SULFATRIM)* ? prochlorperazine (COMPAZINE, COMPO)* ? megestrol (MEGACE)* ? dolutegravir (TIVICAY)* ? hydrochlorothiazide alone or in combination with other medicines (such as ESID EMIL, EZIDE, HYDRODIURIL, HYDRO-PAR, MICROZIDE, or ORETIC)* ? Ask your doctor if you are not sure if any of your medicines are the kind list ed above. ? Are allergic to dofetilide in TIKOSYN. See the end of this leaflet for a compl ete list of ingredients in TIKOSYN. What should I tell my doctor before taking TIKOSYN? Before taking TIKOSYN, tell your doctor about all of your medical conditions inc luding if you: Have heart problems Have kidney or liver problems Are or plan to become . It is not known if TIKOSYN will harm your unborn baby. Are breast-feeding or plan to breast-feed. It is not known if TIKOSYN passes into your breast milk. You and your doctor should decide if you will take TIKOSY N or breast-feed. You should not do both. Especially tell your doctor if you take medicines to treat: Heart problems High blood pressure Depression or other mental problems Asthma Allergies, or hay fever Skin problems Infections Ask your doctor if you are not sure about the medicines you take. Tell your doct or about all prescription and non-prescription medicines, vitamins, dietary supp lements, and any natural or herbal remedies. TIKOSYN and other medicines may a ffect each other, causing serious side effects. If you take TIKOSYN with certain medicines, you will be more likely to have a different type of abnormal heartbe at. See Who should not take TIKOSYN? Know the medicines you take. Keep a list of your medicines and show it to your d octor and pharmacist when you get a new medicine. How should I take TIKOSYN? Take TIKOSYN exactly as your doctor tells you. Do not change your TIKOSYN dose unless your doctor tells you to. Your doctor will do tests before you start and while you take TIKOSYN. Do not stop taking TIKOSYN until your doctor tells you to stop. If you miss a dose, just take the next dose at your regular time. Do not take 2 doses of CATHI SYN at the same time. TIKOSYN can be taken with or without food. If you take too much TIKOSYN, call your doctor or go to the nearest hospital emergency room right away. Take your TIKOSYN capsules with you to show to the do ctor. What are the possible side effects of TIKOSYN? TIKOSYN can cause serious side effects, including a type of abnormal heartbeat c alled [place], which can lead to . See What is the most impor tant information I should know about TIKOSYN? The most common side effects of TIKOSYN include: Headache Chest pain Dizziness Call your doctor right away if you have signs of an electrolyte imbalance: Severe diarrhea Unusual sweating Vomiting Not hungry (loss of appetite) Increased thirst (drinking more than normal) Tell your doctor if you have side effects that bother you or do not go away. These are not all the possible side effects of TIKOSYN. For more information, ask your doctor or pharmacist. Call your doctor for medical advice about side effects. You may report side effects to the FDA at 4-135-ORJ-4269. How should I store TIKOSYN? Store TIKOSYN between 59 to 86F (15-30C). Keep TIKOSYN away from moisture and humidity. Keep TIKOSYN in a tightly closed container. Keep TIKOSYN and all medications out of the reach of children. General Information about TIKOSYN Medicines are sometimes prescribed for purposes other than those listed in a Med ication Guide. Do not use TIKOSYN for a condition for which it was not prescribe d. Do not give TIKOSYN to other people, even if they have the same symptoms you have. It may harm them. This Medication Guide summarizes the most important information about TIKOSYN. I f you would like more information, talk with your doctor. You can ask your doc tor or pharmacist for information about TIKOSYN that is written for [facility]. For more about TIKOSYN, go to www.[employer] or call 2-790-OLKNNIY (6-454-556-7 134). What are the ingredients in TIKOSYN? Active ingredient: dofetilide Inactive ingredients: Capsule fill: microcrystalline cellulose, corn starch, colloidal silicon dioxide , and magnesium stearate Capsule shell: gelatin, titanium dioxide, and FD&C Yellow 6 Imprinting ink: iron oxide black, shellac, n-butyl alcohol, isopropyl alcohol, p ropylene glycol, and ammonium hydroxide * Listed trademarks are the property of their respective owners. Rx only [facility] LAB-0405-3.0 This Medication Guide has been approved by the U.S. Food and Drug Administration . GERD (Adult) The esophagus is a tube that carries food from the mouth to the stomach. A valve (the LES, lower esophageal sphincter) at the lower end of the esophagus prevent s stomach acid from flowing upward. When this valve doesn't work properly, stoma ch contents may repeatedly flow back up (reflux) into the esophagus. This is hema ledgastroesophageal reflux disease (GERD).GERD can irritate the esophagus. I t can cause problems with pain, swallowing or breathing. In severe cases, GERD c an cause recurrent pneumonia (from aspiration or breathing in particles) or othe r serious problems. Symptoms of reflux include burning, pressure or sharp pain in the upper abdomen or mid to lower chest. The pain can spread to the neck, back, or shoulder. There may be belching, an acid taste in the back of the throat, chronic cough, or sor e throat, or hoarseness. GERD symptoms often occur during the day after a big me al. They can also occur at night when lying down. Home care Lifestyle changes can help reduce symptoms. If needed, your healthcare provider may prescribe medicines.Symptoms often improve with treatment, but if treatmen t is stopped, the symptoms often return after a few months. So most persons with GERD will need to continue treatment or get treatment on and off. Lifestyle changes Limit or avoid fatty, fried, and spicy foods, as well as coffee, chocolate, m int, and foods with high acid content such as tomatoes and citrus fruit and juic es (orange, grapefruit, lemon). Dont eat large meals, especially at night. Frequent, smaller meals are bes t. Don't lie down right after eating. And dont eat anything 3 hours before go ing to bed. Don't drink alcohol or smoke. As much as possible, stay away from second hand smoke. If you are overweight, losing weight will reduce symptoms. Don't wear tight clothing around your stomach area. If your symptoms occur during sleep, use a foam wedge to elevate your upper b davidson (not just your head.) Or, place 4" blocks under the head of your bed. Or use 2 bed risers under your bedframe. Medicines If needed, medicines can help relieve the symptoms of GERD and prevent damage to the esophagus. Discuss a medicine plan with your healthcare provider. This may include one or more of the following medicines: Antacids to help neutralize the normal acids in your stomach. Acid blockers (Histamine or H2 blockers) to decrease acid production. Acid inhibitors (proton pump inhibitors PPIs) to decrease acid production in a different way than the blockers. They may work better, but can take a little l onger to take effect. Take an antacid 30 to 60 minutes after eating and at bedtime, but not at the ruben e time as an acid diana. Try not to take medicines such as ibuprofen and aspirin. If you are taking aspir in for your heart or other medical reasons, talk to your healthcare provider abo ut stopping it. Follow-up care Follow up with your healthcare provider or as advised by our staff. When to seek medical advice Call your healthcare provider if any of the following occur: Stomach pain gets worse or moves to the lower right abdomen (appendix area) Chest pain appears or gets worse, or spreads to the back, neck, shoulder, or arm An [id number] trial of medicine doesn't relieve your symptoms Weight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 possibly AVNRT etc. 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 PLAN / RECOMMENDATION: Reasonable to treat with diltiazem in addition to dofetil jacinto. His QT interval on telemetry is stable with the combination (noted diltiaz em-dofetilide interaction). I discussed with Dr. Rodriguez and Dr. Rodriguez. I offe red patient option of expedited outpatient scheduling for redo ablation procedur e. He is unwilling to commit to a treatment strategy. Plan is to continue anti coagulation, continue dofetilide and diltiazem, have is tooth extracted as an ou tpatient, follow-up with Dr. Rodriguez to arrange redo ablation procedure. He is no t interested in going back on amiodarone. Staff name: GOVIND Roblero, Date: 02/22/2020 documented in this encounter Miscellaneous Notes * Care Plan - Kirsten Tamayo RN - 02/23/2020 11:47 AM CDT Problem: Discharge Planning Goal: Participation in plan of care Outcome: Goal Ongoing Goal: Knowledge regarding plan of care Outcome: Goal Ongoing Goal: Prepared for discharge Outcome: Goal Ongoing Problem: Infection, Risk of Goal: Absence of infection Outcome: Goal Ongoing Goal: Knowledge of Infection Control Procedures Outcome: Goal Ongoing * Case Mgmt DC Plan - Margaux Reich - 02/23/2020 11:20 AM CDT Medicaid Transportation Summary for David Rice Requested By: Pricilla Carlson LMSW Date: 02/23/2020 Medicaid Flatlock Sewing Machine Operator: Homero ([facility]) Data Recovery Planner: Karla Destination: [address] , [place] [address] Additional Travelers: NO Transportation Arrival Window: 11:50AM-2:20PM Transportation to Contact Unit HC9, Prior to Arrival: Yes, Patient to be Waiting in Lobby: Yes Trip Reservation Number: [phone] Margaux Reich Grinder Set Up Operator Internal * Case Mgmt DC Plan - Pricilla Carlson - 02/23/2020 11:00 AM CDT Case Management Progress Note NAME:David Rice : 959 AGE: 59 y.o. ADMISSION DATE: 02/20/2020 DAYS ADMITTED: LOS: 2 days Todays Date: 02/23/2020 Plan Patient will discharge home today via Medicaid transport with resumption of HCBS services. Interventions ? Support Support: Pt/Family Updates re:POC or DC Plan CV1 team notified SW that patient has a follow up appt next Wednesday and has misse d several of his last appts. SW called patient and asked if there was any specif ic reason why he was missing his appts. Patient denied this and said he was not sure if he was going to make the appt next Wednesday because he might be switching doctors. SW acknowledged this and reminded patient he needs to call and arrange Medicaid transportation at least 3 days in advance if is planning on keeping the appt. Patient acknowledged same. ? Info or Referral Information or Referral to Community Resources: No Needs Identified ? Discharge Planning Discharge Planning: Transportation Arrangements and/or Resources SW saw discharge orders are signed. SW tasked SHIRT LINE OPERATOR to request Medicaid transporta tion. SW appreciates the assistance. ? Medication Needs Medication Needs: No Needs Identified o Financial Financial: No Needs Identified ? Legal Legal: No Needs Identified ? Other Other/None: No needs identified Disposition ? Expected Discharge Date Expected Discharge Date: 02/23/20 Expected Discharge Time: 1600 ? Transportation Does the patient need discharge transport arranged?: Yes Transportation Name, Phone and Availability #1: Patient will need Medicaid trans portation arranged at discharge. Does the patient use Medicaid Transportation?: Yes ? Next Level of Care (Acute Psych discharges only) ? Discharge Disposition Durable Medical Equipment No service has been selected for the patient. [facility] Destination No service has been selected for the patient. Home Care No service has been selected for the patient. Dialysis/Infusion No service has been selected for the patient. Pricilla Carlson LMSW [id number] * Care Plan - Melissa Rice RN - 02/23/2020 4:28 AM CDT Problem: Discharge Planning Goal: Participation in plan of care Outcome: Goal Ongoing Flowsheets (Taken 02/23/2020 0428) Participation in Plan of Care: Involve patient/caregiver in care planning decisi on making Problem: Discharge Planning Goal: Knowledge regarding plan of care Outcome: Goal Ongoing Flowsheets (Taken 02/23/2020 042) Knowledge regarding plan of care: Provide infection prevention education Provide VTE signs and symptoms education Provide plan of care education Provide fall prevention education Provide medication management education Problem: Infection, Risk of Goal: Absence of infection Outcome: Goal Ongoing Flowsheets (Taken 02/23/2020 042) Absence of infection: Assess for infection (Monitor SIRS Criteria) Monitor for signs and symptoms of infection Implement prevention measures as indicated * Case Mgmt DC Plan - Pricilla Carlson - 02/22/2020 9:59 AM CDT Case Management Progress Note NAME:David Rice : 959 AGE: 59 y.o. ADMISSION DATE: 02/20/2020 DAYS ADMITTED: LOS: 1 day Todays Date: 02/22/2020 Plan Planning for patient to discharge home via Medicaid transport tomorrow. Interventions ? Support Support: Pt/Family Updates re:POC or DC Plan ? Info or Referral Information or Referral to Community Resources: No Needs Identified ? Discharge Planning Discharge Planning: Transportation Arrangements and/or Resources BREE notified by CV1 team that patient is medically stable for transport today. BREE informed team that SW will need signed discharge orders before can request M edicaid transport. Update [id number] BREE notified that patient is not discharging today and will likely discharge van rrow. ? Medication Needs Medication Needs: No Needs Identified o Financial Financial: No Needs Identified ? Legal Legal: No Needs Identified ? Other Other/None: No needs identified Disposition ? Expected Discharge Date Expected Discharge Date: 02/22/20 Expected Discharge Time: 1600 ? Transportation Does the patient need discharge transport arranged?: Yes Transportation Name, Phone and Availability #1: Patient will need Medicaid trans portation arranged at discharge. Does the patient use Medicaid Transportation?: Yes ? Next Level of Care (Acute Psych discharges only) ? Discharge Disposition Durable Medical Equipment No service has been selected for the patient. [facility] Destination No service has been selected for the patient. Home Care No service has been selected for the patient. Dialysis/Infusion No service has been selected for the patient. Pricilla Carlson LMSW [id number] * Case Mgmt DC Plan - Pricilla Carlson - 02/21/2020 11:21 AM CDT Case Management Admission Assessment NAME:David Rice :[birth year] AGE: 59 y.o. ADMISSION DATE: 02/20/2020 DAYS ADMITTED: LOS: 0 days Todays Date: 02/21/2020 Source of Information: Patient, EMR Plan Plan: Case Management Assessment, Assist PRN with SW/NCM Services Per chart review, patient is a 59 y.o.malewith medical history of atrial fib rillation/fuitters/p ablation05/25/2019, HTN, anxiety, chronic back pain, hypo thyroidism who presents as transfer for atrial fibrillation with RVR. SW familiar with patient from previous admission on CV1 service. Patient was rec ently hospitalized at [facility] from 02/02/20-02/02/20 and discharged home via Medic aid transportation with HCBS services. SW called patient to complete initial assessment and discuss discharge planning over the phone due to COVID-19 precautions. Patient denied any changes with insu barbara, RX coverage, living arrangements, ADL needs since prior hospital stay. Ihsan mariee did notify SW his HCBS hours increased by one hour per day for a total of 4 hours. They assist with shopping, cooking, cleaning and laundry.Patient denied any needs at discharge other than assistance arranging Medicaid transportation. CM team will continue to follow along for discharge planning and to provide sup port. [place] [address] (home) Emergency Contact Extended Emergency Contact Information Primary Emergency Contact: Kota Rice Address: [place] [address] Mobile Relation: Son Secondary Emergency Contact: Onur Rice Mobile Relation: Son Production Supervisor Off Shift needed? No Healthcare Directive Transportation Does the patient need discharge transport arranged?: Yes Transportation Name, Phone and Availability #1: Patient will need Medicaid trans portation arranged at discharge. Does the patient use Medicaid Transportation?: Yes Expected Discharge Date Living Situation Prior to Admission ? Living Arrangements Type of Residence: Home, with Home Health or other assistance Living Arrangements: Alone How many levels in the residence?: 1 Can patient live on one level if needed?: Yes Does residence have entry and/or side stairs?: No Assistance needed prior to admit or anticipated on discharge: Yes Who provides assistance or could if needed?: Patient has HCBS for 4 hours per da y. Are they in good health?: Yes Can support system provide 24/7 care if needed?: No ? Level of Function Prior level of function: Needs assist with ADLs Which ADLs require assistance?: Shopping, cooking, cleaning, laundry Who assists with ADLs?: HCBS provider ? Cognitive Abilities Cognitive Abilities: Alert and Oriented, Engages in problem solving and planning , Participates in decision making Financial Resources ? Coverage Primary Insurance: Medicaid(Aetna Medicaid) Secondary Insurance: No insurance Additional Coverage: RX(Covered thru Aetna Medicaid) ? Source of Income Source Of Income: SSDI ? Financial Assistance Needed? N/A Psychosocial Needs ? Mental Health Mental Health History: No ? Substance Use History Substance Use History Screen: No ? Other N/A Current/Previous Services ? PCP Indiana Bauer, None, None ? Pharmacy [facility] - [place], [place] - [address] [facility] [address] [facility] [address] [place], [place] - [address] [facility]. [address] [facility] [address] [facility] [address] [facility]. [place] [address] [facility] [address] ? Durable Medical Equipment Durable Medical Equipment at home: None ? Home Health Receiving home health: No ? Hemodialysis or Peritoneal Dialysis Undergoing hemodialysis or peritoneal dialysis: No ? Tube/Enteral Feeds Receive tube/enteral feeds: No ? Infusion Receive infusions: No ? Private Duty Private duty help used: No ? Home and Community Based Services Home and community based services: Yes HCBS assistance hours/week: 4 hours per day Provider Schedule: Every day of the week Services provided: Shopping, laundry, cleaning, cooking ? Nelly Escalera: N/A ? Hospice Hospice: No ? Outpatient Therapy PT: No OT: No MATCH MAKER: No ? Custodial Facility/Intermediate SNF: No NH: No ? Inpatient Rehab IPR: No ? Long-Term Acute Care Hospital LTACH: No ? Acute Hospital Stay Acute Hospital Stay: In the past Was patient's stay within the last 30 days?: Yes Name of Hospital: [facility] When did patient receive care?: 02/02/20-02/02/20 Readmission Code Group: 7. Advancement of Disease / Chronic Illness Management 7. Advancement of Disease / Chronic Illness Management: 7a1. Cardiac: CHF / AMI Pricilla Carlson LMSW [id number] documented in this encounter Plan of Treatment Not on filedocumented as of this encounter Goals Goal Patient Associated Recent Progress Patient-Stat Aut hor Goal Type Problems ed? Take Medication at Right Time, Medication No Lind, Right Day, Right Order, With Adherence Danilo Moseley N or Without Food Correctly documented as of this encounter Procedures Comments Procedure Name Priority Date/Time Associated Diag nosis HC CBC W/ AUTOMATED DIFF Routine 02/23/2020 5:14 AM CDT HC MAGNESIUM Routine 02/23/2020 5:14 AM CDT HC BASIC METABOLIC PANEL Routine 02/23/2020 5:14 AM CDT HC CBC W/ AUTOMATED DIFF Routine 02/22/2020 5:04 AM CDT HC MAGNESIUM Routine 02/22/2020 5:04 AM CDT HC BASIC METABOLIC PANEL Routine 02/22/2020 5:04 AM CDT TROPONIN-I Routine [...] ECG 12-LEAD Routine 02/21/2020 12:08 AM CDT COVID-19 (SARS-COV-2) PCR Routine 02/20/2020 11:33 PM CDT HC *FREE T4 (REFLEX) Routine 02/20/2020 11:33 PM CDT HC TSH SCREEN Routine 02/20/2020 11:33 PM CDT HC TROPONIN-I Add on 02/20/2020 11:33 PM CDT HC PTT(APTT) Routine 02/20/2020 11:33 PM CDT HC PT(INR) Routine 02/20/2020 11:33 PM CDT HC CBC W/ AUTOMATED DIFF Routine 02/20/2020 11:33 PM CDT HC PHOSPHOROUS, SERUM Routine 02/20/2020 11:33 PM CDT HC MAGNESIUM Routine 02/20/2020 11:33 PM CDT HC COMPREHENSIVE Routine 02/20/2020 METABOLIC PANEL 11:33 PM CDT TELEMETRY STRIPS-SCAN 02/20/2020 12:00 AM CDT documented in this encounter Results * MAGNESIUM (02/23/2020 5:14 AM CDT) Pathologist [facility] Magnesium 2.1 1.6 - 2.6 mg/dL MAIN LAB Specimen Blood Performing Organization Address [facility] one Number MAIN LAB [address] [place] [address] * BASIC METABOLIC PANEL (02/23/2020 5:14 AM CDT) [facility] Sodium 141 137 - 147 MMOL/L KU [...] >60 >60 mL/min [facility] MAIN LAB Comment: [facility] The eGFR is not validated f or use in drug dosing adjustments. Continue to use estimated creatinine clearance per dosing reference text. Please contact the Clinical Pharmacist for questions. eGFR >60 >60 mL/min [facility] MAIN LAB [facility] Comment: The eGFR is not validated for use in drug dosing adjustments. Continue to use estimated creatinine clearance per dosing reference text. Please contact the Clinical Pharmacist for questions. Specimen Blood Performing Organization Address [facility] one Number MAIN LAB [address] [place] [address] * CBC AND DIFF (02/23/2020 5:14 AM CDT) Pathologist [facility] White Blood 8.2 4.5 - 11.0 K/UL [...] Basophil Count Specimen Blood Performing Organization Address [facility] Ph one Number [facility]U MAIN LAB [address] [place] [address] * MAGNESIUM (02/22/2020 5:04 AM CDT) Pathologist [facility] Magnesium 2.1 1.6 - 2.6 mg/dL [facility] MAIN LAB Specimen Blood Performing Organization Address [facility] Ph one Number [facility] MAIN LAB [address] [place] [address] * BASIC METABOLIC PANEL (02/22/2020 5:04 AM CDT) Sodium 139 137 - 147 MMOL/L [facility] MAIN LAB Potassium 4.1 3.5 - 5.1 MMOL/L [facility] MAIN LAB Chloride 109 98 - 110 MMOL/L [facility] MAIN LAB CO2 24 21 - 30 MMOL/L [facility] MAIN LAB Anion Gap 6 3 - 12 [facility] MAIN LAB Glucose 97 70 - 100 MG/DL [facility] MAIN LAB Blood Urea 20 7 - 25 MG/DL [facility] MAIN LAB Nitrogen Creatinine 1.14 0.4 - 1.24 MG/DL [facility] MAIN LAB Calcium 8.4 (L) 8.5 - 10.6 MG/DL [facility] MAIN LAB eGFR Non >60 >60 mL/min [facility] MAIN LAB Comment: [facility] The eGFR is not validated f or use in drug dosing adjustments. Continue to use estimated creatinine clearance per dosing reference text. Please contact the Clinical Pharmacist for questions. eGFR >60 >60 mL/min [facility] MAIN [facility] Comment: The eGFR is not validated for use in drug dosing adjustments. Continue to use estimated creatinine clearance per dosing reference text. Please contact the Clinical Pharmacist for questions. Specimen Blood Performing Organization Address City/[facility] Ph one Number [facility] MAIN LAB [address] [place] [address] * CBC AND DIFF (02/22/2020 5:04 AM CDT) Pathologist [facility] White Blood 9.0 4.5 - 11.0 K/UL [facility] MAIN LAB Cells RBC 4.60 4.4 - 5.5 M/UL [facility] MAIN LAB Hemoglobin 13.0 (L) 13.5 - 16.5 GM/DL [facility] MAIN LAB Hematocrit 38.6 (L) 40 - 50 % [facility] MAIN LAB MCV 83.9 80 - 100 FL [facility] MAIN LAB MCH 28.4 26 - 34 PG [facility] MAIN LAB MCHC 33.8 32.0 - 36.0 G/DL [facility] MAIN LAB RDW 14.7 11 - 15 % [facility] MAIN LAB Platelet Count 426 (H) 150 - 400 K/UL [facility] MAIN LAB MPV 8.3 7 - 11 FL [facility] MAIN LAB Neutrophils 57 41 - 77 % [facility] MAIN LAB Lymphocytes 18 (L) 24 - 44 % [facility] MAIN LAB Monocytes 13 (H) 4 - 12 % [facility] MAIN LAB Eosinophils 10 (H) 0 - 5 % [facility] MAIN LAB Basophils 2 0 - 2 % [facility] MAIN LAB Absolute 5.14 1.8 - 7.0 K/UL [facility] MAIN LAB Neutrophil Count Absolute Lymph 1.66 1.0 - 4.8 K/UL [facility] MAIN LAB Count Absolute 1.19 (H) 0 - 0.80 K/UL [facility] MAIN LAB Monocyte Count Absolute 0.90 (H) 0 - 0.45 K/UL [facility] MAIN LAB Eosinophil Count Absolute 0.13 0 - 0.20 K/UL [facility] MAIN LAB Basophil Count Specimen Blood Performing Organization Address City/State/Zipcode Ph one Number [facility]U MAIN LAB [address] [place] [address] * TROPONIN-I (02/21/2020 4:45 AM CDT) Pathologist [facility] Troponin-I 0.07 (H) 0.0 - 0.05 NG/ML MAIN LAB Specimen Blood Performing Organization Address [facility] Ph one Number [facility] [address] [place] [address] * MAGNESIUM (02/21/2020 4:45 AM CDT) Magnesium 2.1 1.6 - 2.6 mg/dL MAIN LAB Specimen Blood Performing Organization Address [facility] one Number [facility] [address] [place] [address] * PHENCYCLIDINES-URINE RANDOM (02/21/2020 3:00 AM CDT) Phencyclidine NEG NEG-NEG [facility] (PCP) Comment: RESULTS WERE OBTAINED BY IMMUNOASSAY AND ARE PRESUMPTIVE ONLY. POSITIVE INDICATES THE PRESENCE OF SUBSTANCE WITH CHARACTERISTICS SIMILAR TO DRUG-DRUG CLASS OR METABOLITE IN CONC. EQUAL TO OR EXCEEDING VALUES LISTED. PHENCYCLIDINE (PCP) 25 NG/ML Specimen Urine - Urine Narrative Performed At This result has an attachment that is n ot available. Performing Organization Address [facility] one Number [facility] [address] [place] [address] * OPIATES-URINE RANDOM (02/21/2020 3:00 AM CDT) Opiates-Urine POS (A) NEG-NEG [facility] Comment: RESULTS WERE OBTAINED BY IMMUNOASSAY AND ARE PRESUMPTIVE ONLY. POSITIVE INDICATES THE PRESENCE OF SUBSTANCE WITH CHARACTERISTICS SIMILAR TO DRUG-DRUG CLASS OR METABOLITE IN CONC. EQUAL TO OR EXCEEDING VALUES LISTED. OPIATES 2000 NG/ML Specimen Urine - Urine Performing Organization Address [facility] one Number [facility] [address] [place] [address] * COCAINE-URINE RANDOM (02/21/2020 3:00 AM CDT) Cocaine-Urine NEG NEG-NEG [facility] Comment: RESULTS WERE OBTAINED BY IMMUNOASSAY AND ARE PRESUMPTIVE ONLY. POSITIVE INDICATES THE PRESENCE OF SUBSTANCE WITH CHARACTERISTICS SIMILAR TO DRUG-DRUG CLASS OR METABOLITE IN CONC. EQUAL TO OR EXCEEDING VALUES LISTED. COCAINE 300 NG/ML Specimen Urine - Urine Performing Organization Address [facility] Ph one Number [facility] [address] [place] [address] * CANNABINOIDS-URINE RANDOM (02/21/2020 3:00 AM CDT) THC NEG NEG-NEG MAIN LAB Comment: RESULTS WERE OBTAINED BY IMMUNOASSAY AND ARE PRESUMPTIVE ONLY. POSITIVE INDICATES THE PRESENCE OF SUBSTANCE WITH CHARACTERISTICS SIMILAR TO DRUG-DRUG CLASS OR METABOLITE IN CONC. EQUAL TO OR EXCEEDING VALUES LISTED. CANNABINOIDS 50 NG/ML Specimen Urine - Urine Performing Organization [facility] one Number MAIN LAB [address] [place] [address] * BENZODIAZEPINES-URINE RANDOM (02/21/2020 3:00 AM CDT) Benzodiazepines POS (A) NEG-NEG MAIN LAB Comment: RESULTS WERE OBTAINED BY IMMUNOASSAY AND ARE PRESUMPTIVE ONLY. POSITIVE INDICATES THE PRESENCE OF SUBSTANCE WITH CHARACTERISTICS SIMILAR TO DRUG-DRUG CLASS OR METABOLITE IN CONC. EQUAL TO OR EXCEEDING VALUES LISTED. BENZODIAZEPINES 200 NG/ML Specimen Urine - Urine Performing Organization [facility] one Number MAIN LAB [address] [place] [address] * BARBITURATES-URINE RANDOM (02/21/2020 3:00 AM CDT) Barbiturates,Ur NEG NEG-NEG MAIN LAB ine Comment: RESULTS WERE OBTAINED BY IMMUNOASSAY AND ARE PRESUMPTIVE ONLY. POSITIVE INDICATES THE PRESENCE OF SUBSTANCE WITH CHARACTERISTICS SIMILAR TO DRUG-DRUG CLASS OR METABOLITE IN CONC. EQUAL TO OR EXCEEDING VALUES LISTED. BARBITURATES 200 NG/ML Specimen Urine - Urine Performing Organization [facility] one Number MAIN LAB [address] [place] [address] * AMPHETAMINES-URINE RANDOM (02/21/2020 3:00 AM CDT) Amphetamines NEG NEG-NEG MAIN LAB Comment: RESULTS WERE OBTAINED BY IMMUNOASSAY AND ARE PRESUMPTIVE ONLY. POSITIVE INDICATES THE PRESENCE OF SUBSTANCE WITH CHARACTERISTICS SIMILAR TO DRUG-DRUG CLASS OR METABOLITE IN CONC. EQUAL TO OR EXCEEDING VALUES LISTED. AMPHETAMINES 1000 NG/ML Specimen Urine - Urine Performing Organization [facility] Ph one Number MAIN LAB [address] [place] [address] * CHEST SINGLE VIEW (02/21/2020 12:37 AM [...] on 02/21/2020 8:30 AM. Performing Organization Address [facility] Ph one Number [facility] RAD RESULTS * FREE T4-FREE THYROXINE (02/20/2020 11:33 PM CDT) T4-Free 1.2 0.6 - 1.6 NG/DL [facility] MAIN LAB Specimen Performing Organization Address [facility] Ph one Number MAIN LAB [address] [place] [address] * TROPONIN-I (02/20/2020 11:33 PM CDT) Troponin-I 0.08 (H) 0.0 - 0.05 NG/ML MAIN LAB Specimen Performing Organization Address [facility] Ph one Number MAIN LAB [address] [place] [address] * COVID-19 (SARS-COV-2) PCR (02/20/2020 11:33 PM CDT) COVID-19 NASOPHARYNGEAL SWAB [facility] (SARS-CoV-2) PCR Source COVID-19 NOT DETECTED DN-NOT DETECTED [facility] (SARS-CoV-2) Comment: PCR This assay is [...] performance characteristics have been verified by the [facility]. Fact sheet for providers: https://www.fda.gov/media/1367 56/download Fact sheet for patients: https://www.fda.gov/media/2421 57/download Specimen Nasopharyngeal Swab Performing Organization Address City/[facility] one Number MAIN LAB [address] [place] [address] * TSH WITH FREE T4 REFLEX (02/20/2020 11:33 PM CDT) TSH 10.27 (H) 0.35 - 5.00 MCU/ML MAIN LAB Specimen Blood Performing Organization Address [facility] Ph one Number MAIN LAB [address] [place] [address] * PHOSPHORUS (02/20/2020 11:33 PM CDT) Phosphorus 2.7 2.0 - 4.5 MG/DL MAIN LAB Specimen Blood Performing Organization Address [facility] one Number MAIN LAB [address] [place] [address] * MAGNESIUM (02/20/2020 11:33 PM CDT) Magnesium 2.0 1.6 - 2.6 mg/dL MAIN LAB Specimen Blood Performing Organization Address [facility] one Number MAIN LAB [address] [place] [address] * COMPREHENSIVE METABOLIC PANEL (02/20/2020 11:33 PM CDT) Sodium 141 137 - 147 MMOL/L [facility] [...] LAB eGFR Non 58 (L) >60 mL/min MAIN LAB Comment: [facility] The eGFR is not validated f or use in drug dosing adjustments. Continue to use estimated creatinine clearance per dosing reference text. Please contact the Clinical Pharmacist for questions. eGFR >60 >60 mL/min MAIN LAB [facility] Comment: The eGFR is not validated for use in drug dosing adjustments. Continue to use estimated creatinine clearance per dosing reference text. Please contact the Clinical Pharmacist for questions. Specimen Blood Performing Organization Address [facility] [place] Ph one Number MAIN LAB [address] [place] [address] * PTT (APTT) (02/20/2020 11:33 PM CDT) APTT 32.4 24.0 - 36.5 SEC MAIN LAB Specimen Blood Performing Organization Address [facility] [place] Ph one Number MAIN LAB [address] [place] [address] * PROTIME INR (PT) (02/20/2020 11:33 PM CDT) INR 1.3 (H) 0.8 - 1.2 MAIN LAB Specimen Blood Performing Organization Address [facility] Ph one Number [facility] MAIN LAB [address] [place] [address] * CBC AND DIFF (02/20/2020 11:33 PM CDT) White Blood 10.2 4.5 - 11.0 K/UL [facility] MAIN LAB Cells RBC 5.13 4.4 - 5.5 M/UL [facility] MAIN LAB Hemoglobin 14.3 13.5 - 16.5 GM/DL [facility] MAIN LAB Hematocrit 42.6 40 - 50 % [facility] MAIN LAB MCV 83.0 80 - 100 FL [facility] MAIN LAB MCH 27.8 26 - 34 PG [facility] MAIN LAB MCHC 33.5 32.0 - 36.0 G/DL [facility] MAIN LAB RDW 14.8 11 - 15 % [facility] MAIN LAB Platelet Count 450 (H) 150 - 400 K/UL [facility] MAIN LAB MPV 8.4 7 - 11 FL [facility] MAIN LAB Neutrophils 60 41 - 77 % [facility] MA[facility] Lymphocytes 24 24 - 44 % [facility] MA[facility] Monocytes 10 4 - 12 % [facility] MAIN [facility] Eosinophils 5 0 - 5 % [facility] MA[facility] Basophils 1 0 - 2 % [facility] MAIN LAB Absolute 6.10 1.8 - 7.0 K/UL [facility] MAIN LAB Neutrophil Count Absolute Lymph 2.42 1.0 - 4.8 K/UL [facility] MAIN LAB Count Absolute 1.07 (H) 0 - 0.80 K/UL [facility] MAIN LAB Monocyte Count Absolute 0.53 (H) 0 - 0.45 K/UL [facility] MAIN LAB Eosinophil Count Absolute 0.13 0 - 0.20 K/UL [facility] MAIN LAB Basophil Count Specimen Blood Performing Organization Address [facility] Ph one Number MAIN LAB [address] [place] [address] * TELEMETRY STRIPS-SCAN (02/20/2020 12:00 AM CDT) Narrative Performed At This result has an attachment that is n ot available. Ordered by an unspecified provider. documented in this encounter Visit Diagnoses Diagnosis Atrial flutter with rapid ventricular r esponse (HCC) Atrial flutter Essential hypertension Unspecified essential hypertension Hyperlipidemia Other and unspecified hyperlipidemia Hypothyroid Unspecified hypothyroidism History of pulmonary embolus (PE) Personal history of pulmonary embolism Type 2 NSTEMI (non-ST elevated myocardi al infarction) ([facility]) Acute myocardial infarction, subendocar dial infarction, episode of care unspecified Chronic back pain Backache, unspecified Chronic headaches Headache Anxiety Anxiety state, unspecified documented in this encounter Administered Medications Action Date Dose Rate Site Medication Order MAR Action 02/22/2020 8:24 PM CDT 650 mg acetaminophen (TYLENOL) tablet 650 mg Given 650 mg, Oral, EVERY 6 HOURS PRN, Starting Jenny 02/22/20 at 1933, Until Wed02/23/20 at 1348, Pain non-opioid: may be used alone or in combination with opioi d analgesia, TOTAL ACETAMINOPHEN DOSE NOT TO EXCEED 4GM DAILY, 02/23/2020 8:30 AM CDT 0.5 mg ALPRAZolam (XANAX) tablet 0.5 mg Given 0.5 mg, Oral, EVERY 6 HOURS PRN, Starting Wed02/21/20 at 0345, Until Wed02/23/20 at 1348, Anxiety PO 0.5 mg Given 02/23/2020 12:13 AM CDT 0.5 mg Given 02/22/2020 9:52 AM CDT 02/21/2020 1:55 AM CDT 1 mg ALPRAZolam (XANAX) tablet 1 mg Given 1 mg, Oral, THREE TIMES DAILY PRN, Starting Wed02/21/20 at 0007, Until Wed02/21/20 at 0337, Anxiety PO 02/23/2020 8:27 AM CDT 5 mg apixaban (ELIQUIS) tablet 5 mg Given 5 mg, Oral, TWICE DAILY, First dose on Wed02/21/20 at 0900, Until Discontinued, May crush 5 mg or 2.5 mg tablets and suspend in 60 mL of D5W followed by immediate delivery through a nasogastri c tube. No information regarding administration of suspension by mouth i s available. NOTE: This is a HIGH ALERT Medication., 5 mg Given 02/22/2020 8:24 PM CDT 5 mg Given 02/22/2020 8:42 AM CDT 02/21/2020 8:30 AM CDT 81 mg aspirin chewable tablet 81 mg Given 81 mg, Oral, DAILY, First dose on Wed02/21/20 at 0900, Until Discontinued 02/21/2020 4:49 AM CDT 80 mg atorvastatin (LIPITOR) tablet 80 mg Given 80 mg, Oral, ONCE, 1 dose, Wed02/21/20 a t 0300 02/21/2020 5:05 AM CDT 7.5 mg/hr 7.5 mL/hr dilTIAZem (cardIZEM) 125 mg in sodium Dose/Rate chloride 0.9% (NS) 125 mL IV drip (std Change conc) 5-15 mg/hr (5-15 mL/hr), 125 mL, at 5-1 5 mL/hr, Intravenous, TITRATE DIRECTED , Starting Wed02/21/20 at 0045, Until Wed02/21/20 at 0553, Drip Parameters: Initial rate: 5 mg/hr Titrate to keep: HR <110 Titrate by: 2. 5 mg/hr every 15 minutes Hold for: SBP <= 100 and HR <= 60 Std conc = 1 mg/mL, 10 mg/hr 10 mL/hr Dose/Rate Change 02/21/2020 4:51 AM CDT 12.5 mg/hr 12.5 mL/hr Dose/Rate Change 02/21/2020 4:00 AM CDT 02/23/2020 8:27 AM CDT 180 mg dilTIAZem CD (cardIZEM CD) capsule 180 Given mg 180 mg, Oral, DAILY, First dose on Wed02/21/20 at 1145, Until Discontinued, DO NOT CRUSH., 180 mg Given 02/22/2020 8:42 AM CDT 180 mg Given 02/21/2020 11:35 AM CDT 02/23/2020 8:30 AM CDT 125 mcg dofetilide (TIKOSYN) capsule 125 mcg Given 125 mcg, Oral, TWICE DAILY, First dose on Wed02/21/20 at 0600, Until Discontinued, NOTE: This is a HIGH ALER T Medication., 125 mcg Given 02/22/2020 8:25 PM CDT 125 mcg Given 02/22/2020 8:43 AM CDT 02/21/2020 2:30 AM CDT 1,715.4 Units/hr 42.9 mL/hr heparin (porcine) 20,000 units/D5W 500 Given - New mL infusion (std conc)(premade) Bag 0-2,000 Units/hr (0-50 mL/hr) 500 mL, at 0-50 mL/hr, Intravenous, TITRATE DIRECTED , Starting Wed02/21/20 at 0215, Until Wed02/21/20 at 0553, Weight-Based Heparin Protocol - Venous Thromboembolism (VTE) (non-fluid restricted patients) - See separate order for initial IV bolus (from vial) - Initial IV infusion 18 units/kg/hr. Not to exceed 2,000 units/hr - Follow Heparin Infusion Scale - WITH ADJUSTMEN T BOLUS for subsequent bolus and rate changes NOTE: This is a HIGH ALERT Medication., 02/21/2020 2:27 AM CDT 7,624 Units heparin (porcine) BOLUS for continuous Bolus from inf (bag) 7,624 Units Bag 7,624 Units (80 Units/kg 95.3 kg) 190.6 mL, Intravenous, ONCE, 1 dose, Wed02/21/20 at 0215, INITIAL BOLUS for heparin drip -- VTE Treatment Weight-Based Heparin Protocol (non-flui d restricted patients) - Initial IV bolus : 80 units/kg - Not to exceed 10,000 unit s - Administer initial bolus dose via pum p from infusion bag NOTE: This is a HIGH ALERT Medication., 02/23/2020 6:02 AM CDT 50 mcg levothyroxine (SYNTHROID) tablet 50 mcg Given 50 mcg, Oral, DAILY 30MIN BEFORE BREAKFAST, First dose on Wed02/21/20 at 0630, Until Discontinued, Give 1 hour before a meal. If patient is receiving tube feedings, hold tube feed 1hr befor e and 1hr after dose., 50 mcg Given 02/22/2020 6:37 AM CDT 50 mcg Given 02/21/2020 5:55 AM CDT 02/23/2020 5:27 AM CDT 5 mg oxyCODONE (ROXICODONE) tablet 5 mg Given 5 mg, Oral, EVERY 6 HOURS PRN, Startin g Wed02/21/20 at 0007, Until Wed02/23/20 at 1348, Pain PO 5 mg Given 02/22/2020 9:23 PM CDT 5 mg Given 02/22/2020 3:07 PM CDT 02/21/2020 1:55 AM CDT 30 mEq potassium chloride SR (K-DUR) tablet 30 Given mEq 30 mEq, Oral, ONCE, 1 dose, Wed02/21/20 at 0130, Do NOT break or crush table t Give with meal or full glass of water, 02/22/2020 8:24 PM CDT 2 tablets senna/docusate (SENOKOT-S) tablet 2 Given tablet 2 tablet, Oral, TWICE DAILY, First dose on Wed02/21/20 at 0015, Until Discontinued, Hold for loose stools, 2 tablets Given 02/22/2020 8:42 AM CDT 2 tablets Given 02/21/2020 8:30 PM CDT documented in this encounter
--- OUTSIDE RECORDS SUMMARY | 2020-03-11 20:46 | XMS REPORT | Encounter Summary ---
Author Author [facility] Organization [facility] Address Unknown Phone Unavailable Care Team Providers Care Warehouse Incentive Selector Name Role Phone Sherman Spicer MD Unavailable StaReyna hudson Unavailable Unavailable Indiana Bauer APRN PCP Unavailable Reason for Visit * Reason Comments Tachycardia Encounter Details Care Team Description Date Type Department Patrick Constantino RN Tachycardia 01/24/2020 Telephone [facility] [address] [place] [address] Social History Date Tobacco Use [...] Status Date of Assessment Functional Status Response 01/17/2020 Does the patient have a hearing impairment: No documented as of this encounter Miscellaneous Notes * Telephone Encounter - Patrick Constantino RN - 01/24/2020 8:53 AM CDT RC to pt to discuss current condition and symptoms. Pt reports he is asymptomat ic at this time stating "I feel fine now". Pt reports yesterday he got out of h is car and was walking across the parking lot to a store when he felt mild CP. Pt reports he took his HR when he entered the store and had a reading of 115-120 . Pt states he rested for a "little bit" and then was able to continue shopping . Pt stated he was having difficulty hearing while on the phone and started to bec ome angry. No interruption noted on RN side. Pt hung up. RC to pt to continue assessment. Pt answered and was clearly angry with elevated aggressive voice. Pt stated "I said I feel fine, I don't want to talk to you, what do you need". Pt asked for a updated set of VS. Pt again said with a raised voice "I feel fine, what do yo u want". Pt advised that this RN was attempting to help and there was no need t o yell. Pt stated "I don't want your help, I feel fine, leave me alone". This RN attempted to speak with pt again stating that we were here to help and pt hun g up the phone. * Telephone Encounter - Patrick Constantino RN - 01/24/2020 8:51 AM CDT ----- Message from Mercy Carbajal LPN sent at 01/24/2020 8:01 AM CDT ----- Regarding: MPE- elevated HR VM from patient on triage line at 4:57pm yesterday. Said that he is having a little chest pain but nothing that he needs to go to [facility] for. His HR is up to 110 to 116, is that too high. Call him at #[phone]. documented in this encounter Plan of Treatment [...]
--- OUTSIDE RECORDS SUMMARY | 2020-03-11 20:46 | XMS REPORT | Encounter Summary ---
Author Author [facility] Organization [facility] Address Unknown Phone Unavailable Care Team Providers Care Dairy Farm Supervisor Name Role Phone Sherman Spicer MD Unavailable Reyna Bond Unavailable Unavailable Indiana Bauer APRN PCP Unavailable Encounter Details Care Team Description Date Type Department 02/01/2020 Travel Social History Date Tobacco Use Types Packs/Day Years Used Quit: 1979 Former Smoker Cigarettes Smokeless Tobacco: Never Used Drinks/Week oz/Week Comments Alcohol Use No Sex Assigned at Date Recorded Not on file Industry Job Start Date Occupation Not on file Not on file Not on file Travel End Travel History Travel Start No recent travel history available. Date Recorded COVID-19 Exposure Response 02/01/2020 10:16 PM CDT In the last month, have [...]
--- OUTSIDE RECORDS SUMMARY | 2020-03-11 20:46 | XMS REPORT | Encounter Summary ---
Author Author [facility] Organization [facility] Address Unknown Phone Unavailable Care Team Providers Care Air Transport Professionals Name Role Phone Sherman pSicer MD Unavailable Reyna Bond Unavailable Unavailable Indiana Bauer APRN PCP Unavailable Reason for Visit * Reason Comments Anticoagulation Eliquis hold Encounter Details Care Team Description Date Type Department Noemi Hernandez RN Anticoagulation (Eliquis hold ) 02/01/2020 Telephone [facility] [address] [place] [address] Social History Date Tobacco Use [...] Miscellaneous Notes * Telephone Encounter - Ya Howard, RN - 02/02/2020 3:[address] Rodriguez reviewed David's chart including recent hospitalization and feels that h e should NOT stop the Eliquis at this time for dental procedure for tooth extrac tion left message for David with this information and asked that he call back if furth er questions on EP triage nurse line * Telephone Encounter - Noemi Hernandez RN - 02/01/2020 2:27 PM CDT Patient is to be scheduled for tooth extraction and Eliquis hold has been reques cosme. Patient is currently on Eliquis for PAF and hx of mesenteric thrombosis and pulm onary embolism. [id number] score of1:Hypertension He was last see in the hospital 01/16-01/22/2020 with AFL. He did spontaneously con vert to SR. He was restarted on Eliquis at that time. HE was also started on Tik osyn. Will send to MPE for recs. * Telephone Encounter - Noemi Hernandez RN - 02/01/2020 2:23 PM CDT ----- Message from Mercy Carbajal LPN sent at 02/01/2020 2:18 PM CDT ----- Regarding: MPE- hold Eliquis VM from patient on triage line. He needs to have tooth extraction. Can he hold Eliquis and if so, how long? Call him at #[phone]. documented in this encounter Plan of Treatment [...]
--- OUTSIDE RECORDS SUMMARY | 2020-03-11 20:46 | XMS REPORT | Encounter Summary ---
Author Author [facility] Organization [facility] Address Unknown Phone Unavailable Care Team Providers Care Switch Technician Name Role Phone Sherman Spicer MD Unavailable Reyna Bond Unavailable Unavailable Indiana Bauer APRN PCP Unavailable Reason for Visit * Reason Comments Follow-up Phone Call Encounter Details Care Team Description Date Type Department Tsering Diehl, RN Follow-up Phone Call 02/21/2020 Telephone The [address] [place], [place] [id number] Social History Date Tobacco Use Types Packs/Day [...] encounter Miscellaneous Notes * Telephone Encounter - Tsering Diehl RN - 02/21/2020 3:11 PM CDT This RN attempted to return pts call from triage line, at the number he provided , in regards to his inpt concerns. No answer, LVM with call back number. * Telephone Encounter - Tsering Diehl, GORDO - 02/21/2020 3:09 PM CDT ----- Message from Mercy Carbajal LPN sent at 02/21/2020 7:59 AM CDT ----- Regarding: MPE- in hospital VM from patient on triage line at 7:03pm yesterday and 6:29am today. Stated that his heart rate was up to 150 last night and he went to ED and was admitted. He is on 9th floor, room 921 and would like [facility]PE to come see him as they are want ing to do 2 procedures on him and he would like MPE approval. He is at #[phone]. documented in this encounter Plan of Treatment [...]
--- OUTSIDE RECORDS SUMMARY | 2020-03-11 20:46 | XMS REPORT | Encounter Summary ---
Author Author [facility] Organization [facility] Address Unknown Phone Unavailable Care Team Providers Care Parts Counter Clerk Name Role Phone Sherman Spicer MD Unavailable Reyna Bond Unavailable Unavailable Indiana Bauer APRN PCP Unavailable Encounter Details Care Team Description Date Type Department 02/20/2020 [facility] [address] [address] Social History Date Tobacco Use [...] Status Date of Assessment Functional Status Response 02/02/2020 Does the patient have a hearing impairment: No documented as of this encounter Medications at Time of Discharge [...] twice daily. documented as of this encounter Plan of Treatment Not on filedocumented as of this encounter Goals Goal Patient Associated Recent Progress Patient-Stat Aut hor Goal Type Problems ed? Take Medication at Right Time, Medication No Lind, Right Day, Right Order, With Adherence Danilo Moseley N or Without Food Correctly documented as of this encounter Procedures Comments Procedure Name Priority Date/Time Associated Diag nosis GENERAL RAD CHEST Routine 02/20/2020 Diagnosis un known EXTERNAL IMAGING 12:00 AM CDT documented in this encounter Results * GENERAL RAD CHEST EXTERNAL IMAGING (02/20/2020 12:00 AM CDT) Specimen Narrative Performed At This order has been auto finalized and does not contain a result. documented in this encounter Visit Diagnoses Diagnosis Diagnosis unknown Other unknown and unspecified cause of morbidity or mortality documented in this encounter
--- OUTSIDE RECORDS SUMMARY | 2020-03-11 20:46 | XMS REPORT | Encounter Summary ---
Author Author [facility] Organization [facility] Address Unknown Phone Unavailable Care Team Providers Care Outbound Sales Agent Name Role Phone Sherman Spicer MD Unavailable Reyna Bond Unavailable Unavailable Indiana Bauer APRN PCP Unavailable Encounter Details Care Team Description Date Type Department 02/20/2020 Travel Social History Date Tobacco Use Types [...]
--- OUTSIDE RECORDS SUMMARY | 2020-03-11 20:46 | XMS REPORT | Encounter Summary ---
Author Author [facility] Organization [facility] Address Unknown Phone Unavailable Care Team Providers Care Auricular Acupuncturist Name Role Phone Sherman Spicer MD Unavailable Reyna Bond Unavailable Unavailable Indiana Bauer APRN PCP Unavailable Reason for Visit * Reason Comments Follow-up Phone Call Encounter Details Care Team Description Date Type Department Tsering Diehl, RN Follow-up Phone Call 02/05/2020 Telephone The [address] [place], [place] [id number] Social History Date Tobacco Use Types Packs/Day [...] Telephone Encounter - Tsering Diehl RN - 02/05/2020 4:42 PM CDT This RN attempted to contact pt in regards to his VM message on triage line. No answer, left message with call back number. * Telephone Encounter - Tsering Diehl RN - 02/05/2020 4:41 PM CDT ----- Message from Mecry Carbajal LPN sent at 02/05/2020 10:03 AM CDT ----- Regarding: PATRICK NEGRETE from patient on triage line returning our call. Said that he is sorry he missed our call but was in doctors office. Call him at #[phone]. documented in this encounter Plan of Treatment [...]
--- OUTSIDE RECORDS SUMMARY | 2020-03-11 20:46 | XMS REPORT | Encounter Summary ---
Author Author [facility] Organization [facility] Address Unknown Phone Unavailable Care Team Providers Care Knockdown Worker Name Role Phone Sherman Spicer MD Unavailable Reyna Bond Unavailable Unavailable Indiana Bauer APRN PCP Unavailable Reason for Visit * Reason Comments Other Encounter Details Care Team Description Date Type Department Brandi Wolfe, RN Other 02/06/2020 Telephone The [address] [place], [place] [id number] Social History Date Tobacco Use Types Packs/Day [...] Telephone Encounter - Brandi Wolfe RN - 02/06/2020 3:50 PM CDT Attempted to return call to patient. Unable to reach at this time. LVM requesting CB MPE- has 2 ? Received: Today Call patient Message Contents Mercy Carbajal LPN P Cvm Nurse Yousif from patient on triage line. Said he is sorry to bother us. * Telephone Encounter - Brandi Wolfe RN - 02/06/2020 8:58 AM CDT Returned call to patient today. He called because he needed a tooth pulled and i nquired about his anticoagulation. He went on about his most recent experience at during his hospital stay. He w as disappointed on the difference between care between the floors. He reports that Tikosyn is also making him dizzy and lightheaded. He said that jennifer burgos had the same experience on Multaq and Amiodarone. Overall he is very frustrated to travel 150 miles and not see MPE. He will review his concerns at his upcoming appt. * Telephone Encounter - Brandi Wolfe RN - 02/06/2020 8:54 AM CDT ----- Message from Mercy Carbajal LPN sent at 02/06/2020 8:10 AM CDT ----- Regarding: MPE- MAYKEL NEGRETE from patient on triage line at 5:35pm yesterday returning our call. Said that he was sleeping and not feeling good, all I'm doing is sleeping. He is at #[phone]. documented in this encounter Plan of Treatment [...]
--- OUTSIDE RECORDS SUMMARY | 2020-03-11 20:46 | XMS REPORT | Encounter Summary ---
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 or other assistance Living Arrangements: Alone How many levels in the residence?: 1 Can patient live on one level if needed?: Yes Does residence have entry and/or side stairs?: No Assistance needed prior to admit or anticipated on discharge: Yes Who provides assistance or could if needed?: HCBS services- daily for about 3 ho urs Can support system provide 24/7 care if needed?: No ? Level of Function Prior level of function: Needs assist with ADLs Who assists with ADLs?: HCBS ? Cognitive Abilities Cognitive Abilities: Alert and Oriented, Participates in decision making, Recogn izes impact of health condition on lifestyle Financial Resources ? Coverage Primary Insurance: Medicaid(Aetna) Additional Coverage: RX ? Source of Income Source Of Income: SSDI ? Financial Assistance Needed? N/A Psychosocial Needs ? Mental Health Mental Health History: No ? Substance Use History Substance Use History Screen: No ? Other N/A Current/Previous Services ? PCP Indiana Bauer, None, None ? Pharmacy [facility] - [place], [place] - [address] [facility] [facility] [address] [facility] [address] [place], [place] - [address] [facility]. [address] [place] [address] [place] [facility] [address] [place] [address] [facility] [address] ? Durable Medical Equipment Durable Medical Equipment at home: None ? Home Health Receiving home health: No ? Hemodialysis or Peritoneal Dialysis Undergoing hemodialysis or peritoneal dialysis: No ? Tube/Enteral Feeds Receive tube/enteral feeds: No ? Infusion Receive infusions: No ? Private Duty Private duty help used: No ? Home and Community Based Services Home and community based services: Yes HCBS assistance hours/week: Daily for about 3 hours Services provided: shopping, cooking, laundry, cleaning ? Lev White Lev White: N/A ? Hospice Hospice: No ? Outpatient Therapy PT: No OT: No WELDING MACHINE OPERATOR: No ? Fci Facility/Alf SNF: No NH: No ? Inpatient Rehab IPR: No ? Long-Term Acute Care Hospital LTACH: No ? Acute Hospital Stay Acute Hospital Stay: Yes Was patient's stay within the last 30 days?: Yes [facility]: [facility] When did patient receive care?: 01/17/20-01/22/20 Readmission Code Group: 7. Advancement of Disease / Chronic Illness Management 7. Advancement of Disease / Chronic Illness Management: 7a1. Cardiac: CHF / AMI Pricilla Carlson LMSW 0778 * Advanced Care Planning/Resuscitation Status - Bryant Tanner MD - 02/02/2020 2:31 AM CDT Advance Care Planning/Resuscitation Status Conversation Individuals present for advance care planning conversation: patient and resident /fellow physician Pertinent details of conversation (including direct quotes from patient or surro gate): full code Outcome of conversation: Full Code Documents completed as a result of this conversation: None Other documents present, which outline patient/surrogate wishes: None Attestation? N/A documented in this encounter Plan of Treatment Order Schedule Name Type Priority Associated Diag noses Ordered: 02/02/2020 AMB REFERRAL TO NEUROLOGY Outpatient Routine Suction Drum Drier Operator anali intractable Referral headache, unspecified headache type documented as of this encounter Goals Goal Patient Associated Recent Progress Patient-Stat Aut hor Goal Type Problems ed? Take Medication at Right Time, Medication No Lind, Right Day, Right Order, With Adherence Danilo Moseley N or Without Food Correctly documented as of this encounter Procedures Comments Procedure Name Priority Date/Time Associated Diag nosis HC TROPONIN-I Routine 02/02/2020 11:15 AM CDT COVID-19 (SARS-COV-2) PCR Routine 02/02/2020 9:35 AM CDT TROPONIN-I Routine 02/02/2020 8:50 AM CDT HC TSH SCREEN STAT 02/02/2020 2:33 AM CDT HC TROPONIN-I Routine 02/02/2020 2:33 AM CDT HC CBC W/ AUTOMATED DIFF STAT 02/02/2020 2:33 AM CDT HC B-TYPE NATRIURETIC STAT 02/02/2020 PEPTIDE 2:33 AM CDT HC MAGNESIUM Routine 02/02/2020 2:33 AM CDT HC HEMOGLOBIN A1C Routine 02/02/2020 2:33 AM CDT HC STAT 02/02/2020 LIPID-5:CHOL/TRG/HDL/LDL+ 2:33 AM CDT VLDL HC COMPREHENSIVE STAT 02/02/2020 METABOLIC PANEL 2:33 AM CDT TELEMETRY STRIPS-SCAN 02/02/2020 12:00 AM CDT ECG-SCAN 02/02/2020 12:00 AM CDT documented in this encounter Results * TROPONIN-I (02/02/2020 11:15 AM CDT) Troponin-I 0.04 0.0 - 0.05 NG/ML [facility] Specimen Blood Performing Organization Address City/State/Zipcode Ph one Number MAIN LAB [address] [place] [address] * COVID-19 (SARS-COV-2) PCR (02/02/2020 9:35 AM CDT) COVID-19 NASOPHARYNGEAL SWAB [facility] (SARS-CoV-2) PCR Source COVID-19 NOT DETECTED DN-NOT DETECTED [facility] (SARS-CoV-2) Comment: PCR This assay is designed to detect the S and/or ORF1ab genes of SARS-CoV-2 using nucleic acid amplification. [...] not been validated for screening in asymptomatic patients.This test has not been FDA cleared or approved. This test is authorized for use under the FDA Emergency Use Authorization and performance characteristics have been verified by the [facility]. Fact sheet for providers: https://www.fda.gov/media/1362 85/download Fact sheet for patients: https://www.fda.gov/media/1362 87/download Specimen Nasopharyngeal Swab Performing Organization Address City/[facility] Ph one Number [facility] [address] [place] [address] * TROPONIN-I (02/02/2020 8:50 AM CDT) Pathologist [facility] Troponin-I 0.05 0.0 - 0.05 NG/ML [facility] Specimen Blood Performing Organization Address City/[facility] Ph one Number [facility] [address] [place] [address] * LIPID PROFILE (02/02/2020 2:33 AM CDT) Cholesterol 128 <200 MG/DL [facility] Triglycerides 82 <150 MG/DL [facility] HDL 30 (L) >40 MG/DL [facility] LDL 76 <100 mg/dL [facility] VLDL 16 MG/DL [facility] Non HDL 98 MG/DL [facility] Cholesterol Comment: Calculated non-HDL Cholesterol (non-HDL-C) indirectly measures LDL-C, Lp(a), IDL-C, and VLDL-C. It is a surrogate marker for Apoprotein B. Goal should be less than 130 mg/dL. Specimen Performing Organization Address City/[facility] Ph one Number MAIN LAB [address] [place] [address] * TROPONIN-I (02/02/2020 2:33 AM CDT) Troponin-I 0.06 (H) 0.0 - 0.05 NG/ML [facility] Specimen Blood Performing Organization Address [facility] Ph one Number MAIN LAB [address] [place] [address] * MAGNESIUM (02/02/2020 2:33 AM CDT) Magnesium 1.8 1.6 - 2.6 mg/dL MAIN [facility] Specimen Blood Performing Organization Address [facility] one Number MAIN LAB [address] [place] [address] * HEMOGLOBIN A1C (02/02/2020 2:33 AM CDT) Hemoglobin A1C 5.6 4.0 - 6.0 % MAIN [facility] Comment: The ADA recommends that most patients with type 1 and type 2 diabetes maintain an A1c level <7%. Specimen Blood Performing Organization Address [facility] one Number MAIN LAB [address] [place] [address] * TSH WITH FREE T4 REFLEX (02/02/2020 2:33 AM CDT) TSH 4.96 0.35 - 5.00 MCU/ML [facility] Specimen Blood Performing Organization Address [facility] one Number MAIN LAB [address] [place] [address] * BNP (B-TYPE NATRIURETIC PEPTI) (02/02/2020 2:33 AM CDT) B Type 184.0 (H) 0 - 100 PG/ML [facility] Natriuretic Peptide Specimen Blood Performing Organization Address [facility] one Number MAIN LAB [address] [place] [address] * COMPREHENSIVE METABOLIC PANEL (02/02/2020 2:33 AM CDT) Sodium 141 137 - 147 MMOL/L MAIN LAB Potassium 3.7 3.5 - 5.1 MMOL/L [facility] Chloride 109 98 - 110 MMOL/L [facility] Glucose 88 70 - 100 MG/DL [facility] Blood Urea 19 7 - 25 MG/DL [facility] Nitrogen Creatinine 1.14 0.4 - 1.24 MG/DL [facility] Calcium 8.8 8.5 - 10.6 MG/DL [facility] Total Protein 6.1 6.0 - 8.0 G/DL [facility] Total Bilirubin 0.4 0.3 - 1.2 MG/DL [facility] Albumin 3.6 3.5 - 5.0 G/DL [facility] Alk Phosphatase 65 25 - 110 U/L [facility] AST (SGOT) 16 7 - 40 U/L [facility] CO2 21 21 - 30 MMOL/L [facility] ALT (SGPT) 9 7 - 56 U/L [facility] Anion Gap 11 3 - 12 [facility] eGFR Non >60 >60 mL/min [facility] Comment: Ukrainian The eGFR is not validated f or use in drug dosing adjustments. Continue to use estimated creatinine clearance per dosing reference text. Please contact the Clinical Pharmacist for questions. eGFR >60 >60 mL/min [facility] Ukrainian Comment: The eGFR is not validated for use in drug dosing adjustments. Continue to use estimated creatinine clearance per dosing reference text. Please contact the Clinical Pharmacist for questions. Specimen Blood Performing Organization Address City/State/Zipcode Ph one Number [facility] [address] [place] [address] * CBC AND DIFF (02/02/2020 2:33 AM CDT) White Blood 11.4 (H) 4.5 - 11.0 K/UL [facility] Cells RBC 4.93 4.4 - 5.5 M/UL [facility] Hemoglobin 14.0 13.5 - 16.5 GM/DL [facility] Hematocrit 41.4 40 - 50 % [facility] MCV 83.8 80 - 100 FL [facility] MCH 28.3 26 - 34 PG [facility] MCHC 33.8 32.0 - 36.0 G/DL [facility] RDW 15.2 (H) 11 - 15 % [facility] Platelet Count 470 (H) 150 - 400 K/UL [facility] MPV 8.2 7 - 11 FL [facility] Neutrophils 65 41 - 77 % [facility] Lymphocytes 17 (L) 24 - 44 % [facility] Monocytes 11 4 - 12 % [facility] Eosinophils 6 (H) 0 - 5 % [facility] Basophils 1 0 - 2 % [facility] Absolute 7.41 (H) 1.8 - 7.0 K/UL [facility] Neutrophil Count Absolute Lymph 1.93 1.0 - 4.8 K/UL [facility] Count Absolute 1.23 (H) 0 - 0.80 K/UL [facility] Monocyte Count Absolute 0.64 (H) 0 - 0.45 K/UL [facility] Eosinophil Count Absolute 0.15 0 - 0.20 K/UL [facility] Basophil Count Specimen Blood Performing Organization Address City/State/Zipcode Ph one Number [facility] [address] [place] [address] * TELEMETRY STRIPS-SCAN (02/02/2020 12:00 AM CDT) Narrative Performed At This result has an attachment that is n ot available. Ordered by an unspecified provider. * ECG-SCAN (02/02/2020 12:00 AM CDT) Narrative Performed At This result has an attachment that is n ot available. Ordered by an unspecified provider. documented in this encounter Visit Diagnoses Diagnosis Chronic intractable headache, unspecifi ed headache type Paroxysmal A-fib (HCC) Atrial fibrillation Essential hypertension Unspecified essential hypertension Atypical chest pain Other chest pain Hypothyroid Unspecified hypothyroidism Chronic back pain Backache, unspecified Migraine Migraine, unspecified, without mention of intractable migraine without mention of status migrainosus Anxiety Anxiety state, unspecified S/P ablation of atrial fibrillation Other postprocedural status History of pulmonary embolus (PE) Personal history of pulmonary embolism documented in this encounter Admitting Diagnoses Diagnosis Atrial fibrillation (HCC) Atrial fibrillation documented in this encounter Administered Medications Action Date Dose Rate Site Medication Order MAR Action acetaminophen (TYLENOL) tablet 650 mg 650 mg, Oral, EVERY 6 HOURS PRN, Starting Wed02/02/20 at 0224, Until Wed02/02/20 at 1753, Pain non-opioid: january e used alone or in combination with opioi d analgesia, TOTAL ACETAMINOPHEN DOSE NOT TO EXCEED 4GM DAILY, 02/02/2020 2:53 AM CDT 1 mg ALPRAZolam (XANAX) tablet 1 mg Given 1 mg, Oral, THREE TIMES DAILY PRN, Starting Wed02/02/20 at 0202, Until Wed02/02/20 at 1753, Anxiety PO 02/02/2020 2:53 AM CDT 5 mg apixaban (ELIQUIS) tablet 5 mg Given 5 mg, Oral, TWICE DAILY, First dose on Wed02/02/20 at 0315, Until Discontinued , May crush 5 mg or 2.5 mg tablets and suspend in 60 mL of D5W followed by immediate delivery through a nasogastri c tube. No information regarding administration of suspension by mouth i s available. NOTE: This is a HIGH ALERT Medication., 02/02/2020 8:43 AM CDT 40 mg atorvastatin (LIPITOR) tablet 40 mg Given 40 mg, Oral, DAILY, First dose on Wed02/02/20 at 0900, Until Discontinued 02/02/2020 4:57 AM CDT 125 mcg dofetilide (TIKOSYN) capsule 125 mcg Given 125 mcg, Oral, TWICE DAILY, First dose on Wed02/02/20 at 0400, Until Discontinued, NOTE: This is a HIGH ALER T Medication., 02/02/2020 4:57 AM CDT 50 mcg levothyroxine (SYNTHROID) tablet 50 mcg Given 50 mcg, Oral, DAILY 30MIN BEFORE BREAKFAST, First dose on Wed02/02/20 at 0630, Until Discontinued, Give 1 hour before a meal. If patient is receiving tube feedings, hold tube feed 1hr befor e and 1hr after dose., 02/02/2020 4:36 AM CDT 1 g 100 mL/hr magnesium sulfate 1 g/D5W 100 mL IVPB Given - New 1 g, Intravenous, 100 mL, Administer Bag over 1 Hours, ONCE, 1 dose, Wed02/02/20 at 0345, Each 1gm delivers 8.1 mEq Magnesium., 02/02/2020 8:43 AM CDT 5 mg oxyCODONE (ROXICODONE) tablet 5 mg Given 5 mg, Oral, ONCE, 1 dose, Wed02/02/20 a t 0915 polyethylene glycol 3350 (MIRALAX) packet 17 g 17 g (1 packet), Oral, DAILY, First dos e on Wed02/02/20 at 0930, Until Discontinued, 8.5 GRAMS = 0.5 PACKET 17 GRAMS = 1 PACKET 34 GRAMS = 2 PACKETS, 02/02/2020 4:36 AM CDT 40 mEq potassium chloride SR (K-DUR) tablet 40 Given mEq 40 mEq, Oral, ONCE, 1 dose, Wed02/02/20 at 0345, Give with meal or full glass o f water, 02/02/2020 8:43 AM CDT 2 tablets senna/docusate (SENOKOT-S) tablet 2 Given tablet 2 tablet, Oral, TWICE DAILY, First dose on Wed02/02/20 at 0900, Until Discontinued, Hold for loose stools, documented in this encounter
--- OUTSIDE RECORDS SUMMARY | 2020-03-11 20:47 | XMS REPORT | Encounter Summary ---
Author Author [facility] Organization [facility] Address Unknown Phone Unavailable Care Team Providers Care Glaze Maker Name Role Phone Sherman Spicer MD Unavailable Reyna Bond Unavailable Unavailable Indiana Bauer APRN PCP Unavailable Reason for Visit * Reason Comments Other Cardiac Rehab Referral Encounter Details Care Team Description Date Type Department Rafia Snyder RN Other (Cardiac Rehab Referral) 11/07/2019 Telephone [facility] [address] [place], [place] [address] Social History Date Tobacco Use Types Packs/Day [...] Rafia Snyder RN - 11/07/2019 4:41 PM PHYSICAL AERODYNAMICIST RN verifying that patient qualifies for cardiac rehab before calling patient dede k. Patient can also call insurance to see if he would qualify for cardiac rehab. RN called provided call back number ([phone]) and was able to LVM informing patient of the above. RN left call back number in message. Will remain availab le. GORDO Jackson. ----- Message ----- From: Mercy Carbajal LPN Sent: 11/06/2019 8:18 AM PHYSICAL AERODYNAMICIST To: Cvm Nurse Yousif Subject: MPE- referral VM from patient on triage line Wednesday at 6:10pm. He wanted to know if we had chance to see if MPE would do the heart rehab referr al for him. Call back at # [phone]. 2019 1337 - RN returning call to patient to inform him that he would need t o call rehab center first to see if he qualifies for cardiac rehab. RN attempted to contact patient twice ([phone] both times and both times received the [...] referral first? Call him back at # [phone]. ICAL AERODYNAMICIST documented in this encounter Plan of Treatment [...]
--- OUTSIDE RECORDS SUMMARY | 2020-03-11 20:47 | XMS REPORT | Encounter Summary ---
Author Author [facility] Organization [facility] Address Unknown Phone Unavailable Care Team Providers Care Induction Coordination Power Engineer Name Role Phone Sherman Spicer MD Unavailable Reyna Bond Unavailable Unavailable Indiana Bauer APRN PCP Unavailable Encounter Details Care Team Description Date Type Department Ya Howard, RN 11/09/2019 Telephone [facility] [address] [place] [address] Social History Date Tobacco Use [...] Ya Howard RN - 11/09/2019 11:33 AM GLOBAL CONSUMER SECTOR VICE PRESIDENT returned call to David he just had [...] c/b the dental office if further questions AL CONSUMER SECTOR VICE PRESIDENT * Telephone Encounter - Ya Howard RN - 11/09/2019 11:32 AM GLOBAL CONSUMER SECTOR VICE PRESIDENT ----- Message from Mercy Carbajal LPN sent at 11/09/2019 11:17 AM GLOBAL CONSUMER SECTOR VICE PRESIDENT ----- Regarding: MPE- cp and dizzy VM from patient on triage line. Said that he was given Anesthesia yesterday to pull all his teeth. Last night his heart pounded and today he has headache, chest pain ant is lighth eaded, dizzy. Should he to to the ED or see if it gets better?Could it be from the anesthesia? He has new # [phone]. AL CONSUMER SECTOR VICE PRESIDENT documented in this encounter Plan of Treatment [...]
--- OUTSIDE RECORDS SUMMARY | 2020-03-11 20:47 | XMS REPORT | Encounter Summary ---
Author Author [facility] Organization [facility] Address Unknown Phone Unavailable Care Team Providers Care Associate Entertainment Editor Name Role Phone Sherman Spicer MD Unavailable Reyna Bond Unavailable Unavailable Indiana Bauer APRN PCP Unavailable Reason for Visit * Reason Comments Follow Up left before being seen 10/16 Encounter Details Care Team Description Date Type Department Rafia Snyder RN Follow Up (left before being seen 020) 10/18/[address] [place] [address] Social History Date Tobacco Use Types Packs/Day [...] Rafia Snyder RN - 10/30/2019 12:59 PM PIERCER RN reaching out to patient informing him [...] inform patient that patient can go to [facility] pharmacy and usually they have a blood [...] female pts as this is sponsored by [employer]. Unfortunately he will not qualify for it. Digital BP m onitors range from $50-90. I am not aware of a company that sells refurbished BP either. This is not identified as a DME so unfortunately, insurance will not co oziel this. Regarding cardiac rehab, I reviewed his history but I didn't see a qualifying dx for cardiac rehab. No recent NM, stents, valve repairs, or EF <35. Let me know if you have any questions. Thank you, -AL Routing comment You Constantine Perry RN 3 days ago Do we know where a patient could get a discounted or free blood pressure cuff to use at home? Routing comment CER * Addendum Note - Alejandra Greene RN - 10/26/2019 10:30 AM PIERCER Addended by: ALEJANDRA GREENE on: 10/26/2019 10:30 AM Modules accepted: Orders CER * Telephone Encounter - Alejandra Greene RN - 10/26/2019 10:04 AM PIERCER MPE- monitor Received: Today Call patient Message Contents Mercy Carbajal LPN P Cvm Nurse Yousif NEGRETE from patient on triage line at 4:49pm yesterday. Said that we were going to try and get b/p and pulse monitor for him. Any luck in finding them? He is at # [phone]. 10/26/2019 10:04 AM: Pt is asking for a referral to cardiac rehab at [facility]. I informed him that there are certain [...] to 20 mins about his frustration with Armandoeduardo Zaragoza and Fahad. I li stened to his frustrations. CER * Telephone Encounter - Rafia Snyder RN - 10/18/2019 1:34 PM PIERCER RN called number listed in chart for patient ([phone]) and mobile number li sted for son of patient (Kota [phone]) were both disconnected. RN attempt ed to call home number listed for son (Kota [phone]) and that number was also disconnected. RN called [facility] and spoke with GORDO Og wh o stated that patient is on the schedule for procedure (full mouth extraction) o n 10/25/2019. RN informed Lenka that patient did not necessarily need to be seen b y MPE before procedure but that RN needed to speak with patient. Lenka provided phone number for the patient that RN had already attempted ([phone]) which is disconnected. RN to send letter to patient requesting that he contact our off ice SONAM to discuss potential discontinuation of Eliquis and possibly initiation of Lisinopril. Lenka was provided EP financial investment adviser Line phone number and had no fur ther questions at this time. RN will send no contact letter to patient address o n file. Will remain available. GORDO Jackson. ----- Message from Cecy He RN sent at 10/17/2019 7:29 AM PIERCER ----- Regarding: call patient? Per his recommendations [...] NEGRETE on triage line from Lenka with [facility] # [phone]. Said that they are just now going to do surgery and had CC from us but patient t old them that he had test with dye. Anesthesia would like results of test and new CC faxed to them at # [phone] . Said that they had faxed form to us on 10-10-19. 10/18/2019 1434 - RN called phone number provided by GORDO Og with [facility]. Phone number provided for patient was [phone]. RN was able to s peak with [...] cardiac authorization/recommendation (clearance) and will fax to [facility] SONAM. Will remain available. GORDO Jackson. E- RTC for Rafia Received: Today Message Contents Mercy Carbajal LPN P Cvm Nurse Ep PENELOPE from [place] with [facility] # [phone] returning our call. Said that they have phone # [phone] for patient and she called and got VM. She left message that we are trying to get a hold of him. CER documented in this encounter Plan of Treatment [...]
--- OUTSIDE RECORDS SUMMARY | 2020-03-11 20:47 | XMS REPORT | Encounter Summary ---
Author Author [facility] Organization [facility] Address Unknown Phone Unavailable Care Team Providers Care Teacher Dancing Name Role Phone Sherman Spicer MD Unavailable [...]
--- OUTSIDE RECORDS SUMMARY | 2020-03-11 20:47 | XMS REPORT | Encounter Summary ---
Author Author [facility] Organization [facility] Address Unknown Phone Unavailable Care Team Providers Care First Calender Worker Name Role Phone Sherman Spicer MD Unavailable Reyna Bond Unavailable Unavailable Indiana Bauer APRN PCP Unavailable Reason for Visit * Reason Comments Follow Up Pt requested MPE to see chepe in hospital room. EP consulted, RRR rounding today. Encounter Details Care Team Description Date Type Department Patrick Constantino, RN Follow Up (Pt requested MPE to see chepe i n hospital room. EP consulted, RRR rounding today.) 01/18/2020 Telephone [facility] [address] [place] [address] Social History Date Tobacco Use [...] Miscellaneous Notes * Telephone Encounter - Patrick Constantino, RN - 01/18/2020 11:33 AM CDT RC to pt to discuss his request for MPE to visit him in hospital today. Pt info rmed that MPE was not rounding today and RRR had been consulted to assist with h is hospital stay. Pt also informed that MPE would be notified of the hospital v isit and f/u as recommended. Pt stated understanding and then hung up the phone . * Telephone Encounter - Patrick Constantino RN - 01/18/2020 11:32 AM CDT ----- Message from Mercy Carbajal LPN sent at 01/18/2020 10:41 AM CDT ----- Regarding: MPE- in hospital VM from patient on triage line. He was taken to last night with HR [id number]. He is in room 521 and would like MPE to come by and see him. He is at #[phone]. documented in this encounter Plan of Treatment [...]
--- OUTSIDE RECORDS SUMMARY | 2020-03-11 20:47 | XMS REPORT | Encounter Summary ---
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 intact Labs: Hematology: Lab Results Component Value Date HGB 14.3 01/18/2020 HCT 42.0 01/18/2020 PLTCT 408 01/18/2020 WBC 10.3 01/18/2020 NEUT 62 01/18/2020 ANC 6.30 01/18/2020 ALC 1.79 01/18/2020 FARHAN 13 01/18/2020 AMC 1.31 01/18/2020 ABC 0.02 01/18/2020 MCV 83.6 01/18/2020 MCHC 34.1 01/18/2020 MPV 8.3 01/18/2020 RDW 15.3 01/18/2020 , Coagulation: Lab Results Component Value Date PTT 31.0 01/17/2020 INR 1.0 01/17/2020 and General Chemistry: Lab Results Component Value Date NA 142 01/18/2020 K 4.2 01/18/2020 CL 111 01/18/2020 GAP 7 01/18/2020 BUN 18 01/18/2020 CR 1.15 01/18/2020 GLU 101 01/18/2020 GLU 99 05/19/2019 CA 8.8 01/18/2020 ALBUMIN 3.4 01/18/2020 MG 2.1 01/18/2020 TOTBILI 0.3 01/18/2020 ECG: ECG shows sinus rhythm, rate 79, QTC 440 ms Telemetry: Sinus rhythm with rates predominantly in the 70s MAGALI Mao ([id number]) Associated attestation - Ralph Kauffman MD - 01/18/2020 7:03 PM CDT I personally interviewed and/or examined the patient. I have reviewed the histo ry, physical, impression and plan outlined by the Nurse Practitioner. I agree wi th the note below, which I have reviewed and agree with with the exception of up dates/revisions as noted here. Mr. Rice is a 59-year-old male with a past medical history of paroxysmal atria l fibrillation status post ablation on 05/25/2019, hypertension, hyperlipidemia, h ypothyroidism. He presented as a transfer from [facility] in [facility] with chest pain, shortness of breath, and palpitations. These are the symptoms that the patient usually feels when he is in atrial fibrillation. EKG at OSH re vealed a narrow complex somewhat regular flutter at a rate of 160 bpm that termi nated with diltiazem bolus. Notably, his atrial fibrillation in 05/25/2019 was complicated by development of p ericarditis and readmission 1 week later for chest pain found to have a pericard ial effusion. He was in hospital for ~2 weeks per patient. The patient was disch arged on colchicine but had symptoms despite per his report. EKG dated 01/18/2020: sinus rhythm rate of 85 bpm, MT interval of 168 ms, QRS 91 ms, and QTc 481 ms. EKG from outside hospital: 01/16 show what appears to be an atypical atrial flutt er at a rate of 164 beats per minute. Examination demonstrates: GEN: NAD, Alert and oriented, appropriate HEENT: No JVD, MMM CHEST: CTA bilaterally, no wheezing, no rales CARD: Regular rate and rhythm, no murmurs, rubs or gallops ABD: ND, NTTP, +BS EXTRE: Warm, no edema My impression is: #. Paroxysmal Atrial Fibrillation/Flutter with RVR: CHADS VASC 1 (Hypertension). He had a successful cryoballoon ablation procedure on . Now with recur rence of symptomatic atrial fibrillation. -- Converted spontaneously to sinus rhythm -- Off anticoagulation due to low stroke risk. -- didn't tolerate Multaq/diltiazem in the past -- Amio dc'd following ablation -- The episode started less than 48 hours ago. #. Chest pain: No improved and nearly resolved -- chest pain improved in sinus rhythm. -- Low suspicious for ACS -- Low level of troponins suspect NSTEMI TYpe II -- Last Echo 01/05/19 with EF 50-55%. -- Cath 01/05/2019: minimal coronary artery disease. #. History of Mesenteric Venous thrombosis/PE 2011: -- Not on anticoagulation -- No evidence of recurrence. My plan is: #. Now in sinus rhythm. #. Will restart anticoagulation, the episode appears to have started <48 hours ago. #. Will plan to initiation dofetilide 500 mcg BID. #. Will need to be monitored for a total of 5 doses. #. Keep electrolytes balanced. #. Will coordinate OP visit with primary EP to discuss manager terminal plan. The zeeshan ent would like to not be on medications if there are other options Ralph Kauffman MD Cardiovascular Electrophysiology documented in this encounter Miscellaneous Notes * Case Mgmt DC Plan - Margaux Reich - 01/22/2020 10:38 AM CDT Medicaid Transportation Summary for David Rice Requested By: Pricilla Carlson LMSW Date: 01/22/2020 Medicaid Residence Hall Director: [address] ([facility]) Child Care Cook: Kristy Destination: [address] , [place] [address] Additional Travelers: NO Transportation Arrival Window: 11:30AM-1:30PM Transportation to Contact Unit HC 5 15 minutes prior to arrival: Yes, Patient to be Waiting in Lobby: Yes Trip Reservation Number: [phone] Margaux Reich Rounding And Backing Machine Operator * Case Mgmt DC Plan - Pricilla Carlson - 01/22/2020 9:51 AM CDT Case Management Progress Note NAME:David Rice : 959 AGE: 59 y.o. ADMISSION DATE: 01/17/2020 DAYS ADMITTED: LOS: 5 days Todays Date: 01/22/2020 Plan Anticipate patient will discharge home today via Medicaid transportation. Interventions ? Support Support: No Needs Identified ? Info or Referral Information or Referral to Community Resources: No Needs Identified ? Discharge Planning Discharge Planning: Transportation Arrangements and/or Resources Discharge orders are signed. SW tasked [employer] to request Medicaid transportation. S W appreciates the assistance. ? Medication Needs Medication Needs: No Needs Identified o Financial Financial: No Needs Identified ? Legal Legal: No Needs Identified ? Other Other/None: No needs identified Disposition ? Expected Discharge Date Expected Discharge Date: 01/22/20 Expected Discharge Time: 1300 ? Transportation Does the patient need discharge transport arranged?: Yes Transportation Name, Phone and Availability #1: Medicaid transport Does the patient use Medicaid Transportation?: No ? Next Level of Care (Acute Psych discharges only) ? Discharge Disposition Durable Medical Equipment No service has been selected for the patient. [facility] Destination No service has been selected for the patient. Home Care No service has been selected for the patient. Dialysis/Infusion No service has been selected for the patient. Pricilla Carlson LMSW [phone] * Care Plan - Nadja Mcmanus RN - 01/22/2020 12:41 AM CDT Problem: Discharge Planning Goal: Participation in plan of care Outcome: Goal Ongoing Flowsheets (Taken 01/19/2020 1619 by Lizzie Rodrigez RN) Participation in Plan of Care: Involve patient/caregiver in care planning decisi on making Goal: Knowledge regarding plan of care Outcome: Goal Ongoing Flowsheets (Taken 01/19/2020 1619 by Lizzie Rodrigez RN) Knowledge regarding plan of care: Provide admission education to parent/caregiver Provide plan of care education Provide fall prevention education Provide procedural and treatment education Provide infection prevention education Provide medication management education Goal: Prepared for discharge Outcome: Goal Ongoing Flowsheets (Taken 01/22/202039) Prepared for discharge: Complete ADL ability assessment Provide diet and oral health education Problem: Falls, High Risk of Goal: Absence of falls-Adult Patient Outcome: Goal Ongoing Flowsheets (Taken 01/19/2020 1619 by Lizzie Rodrigez RN) Absence of falls-Adult Patient: Complete Fall Risk Assessment. Provide safe ambulation. Implement fall risk bundle. Provde safe environment. Provide fall prevention strategies. Problem: Nausea/Vomiting Goal: Absence of nausea and/or vomiting Outcome: Goal Ongoing Goal: Adequate nutritional intake Outcome: Goal Ongoing Problem: Pain Goal: Management of pain Outcome: Goal Ongoing Flowsheets (Taken 01/22/202039) Management of pain: Complete pain assessment scale according to age, condition and ability to under stand. In the patient who can fully report pain, assess pain characteristics. Manage pain. Assess opioid analgesia side-effects. Assess pain control barriers. Goal: Knowledge of pain management Outcome: Goal Ongoing Flowsheets (Taken 01/22/202039) Knowledge of pain management: Provide pain scale education Provide pain management methods education Provide pharmacological pain management education Goal: Progress Toward Pain Management Goals Outcome: Goal Ongoing Flowsheets (Taken 01/22/202039) Progress toward pain management goals: Progress toward pain management goals Assess progress toward pain management goals Problem: Mobility/Activity Intolerance Goal: Maximize functional ADL's and mobility outcomes Outcome: Goal Ongoing Flowsheets (Taken 01/22/202039) Maximize functional ADLs and mobility outcomes: Manage environmental safety Consider consult for mobility/activity intolerance Manage energy conservation for mobility/activity intolerance Problem: Anxiety Goal: Alleviation of anxiety Outcome: Goal Ongoing Flowsheets (Taken 01/22/202039) Alleviation of Anxiety: Assess coping style Provide coping support to patient/caregiver Provide positive coping methods with education Provide relaxation techniques education Provide comfort promotion interventions * Case Mgmt DC Plan - Grecia Ferrara - 01/21/2020 10:19 AM CDT Case Management Progress Note NAME:David Rice : 959 AGE: 59 y.o. ADMISSION DATE: 01/17/2020 DAYS ADMITTED: LOS: 4 days Todays Date: 01/21/2020 Plan Pt to discharge home once medically stable, will need medicaid transport Interventions ? Support Support: No Needs Identified ? Info or Referral Information or Referral to Community Resources: No Needs Identified ? Discharge Planning Discharge Planning: Transportation Arrangements and/or Resources SW spoke to team, pt not ready for discharge today Primary SW to f/u on Wednesday ? Medication Needs Medication Needs: No Needs Identified ? \\Financial Financial: No Needs Identified ? Legal Legal: No Needs Identified ? Other Other/None: No needs identified Disposition ? Expected Discharge Date Expected Discharge Date: 01/22/20 Expected Discharge Time: 1300 ? Transportation Does the patient need discharge transport arranged?: Yes Transportation Name, Phone and Availability #1: Medicaid transport Does the patient use Medicaid Transportation?: No ? Next Level of Care (Acute Psych discharges only) ? Discharge Disposition Durable Medical Equipment No service has been selected for the patient. Destination No service has been selected for the patient. Home Care No service has been selected for the patient. Dialysis/Infusion No service has been selected for the patient. Grecia Ferrara LMSW *[id number] * Care Plan - Micheal Richardson RN - 01/20/2020 9:36 PM CDT POC discussed w pt. Pt indicates understanding. Will CTE. Problem: Discharge Planning Goal: Participation in plan of care Outcome: Goal Ongoing Goal: Knowledge regarding plan of care Outcome: Goal Ongoing Goal: Prepared for discharge Outcome: Goal Ongoing Problem: Falls, High Risk of Goal: Absence of falls-Adult Patient Outcome: Goal Ongoing Problem: Nausea/Vomiting Goal: Absence of nausea and/or vomiting Outcome: Goal Ongoing Goal: Adequate nutritional intake Outcome: Goal Ongoing * Case Mgmt DC Plan - Britany Hargrove - 01/20/2020 10:46 AM CDT Case Management Progress Note NAME:David Rice : 959 AGE: 59 y.o. ADMISSION DATE: 01/17/2020 DAYS ADMITTED: LOS: 3 days Todays Date: 01/20/2020 Plan Pt will discharge home when medically stable. Interventions ? Support Support: No Needs Identified ? Info or Referral Information or Referral to Community Resources: No Needs Identified ? Discharge Planning Discharge Planning: Transportation Arrangements and/or Resources Per team, pt is not stable for discharge Wednesday. Wednesday SW to follow up. ? Medication Needs Medication Needs: No Needs Identified ? Financial Financial: No Needs Identified ? Legal Legal: No Needs Identified ? Other Other/None: No needs identified Disposition ? Expected Discharge Date Expected Discharge Date: 01/21/20 Expected Discharge Time: 1300 ? Transportation Does the patient need discharge transport arranged?: Yes Transportation Name, Phone and Availability #1: Medicaid transport Does the patient use Medicaid Transportation?: No ? Next Level of Care (Acute Psych discharges only) ? Discharge Disposition Durable Medical Equipment No service has been selected for the patient. Destination No service has been selected for the patient. Home Care No service has been selected for the patient. Dialysis/Infusion No service has been selected for the patient. Britany Hargrove LMSW *[id number] * Care Plan - Micheal Richardson RN - 01/20/2020 12:02 AM CDT Pt understands plan of care. Will CTE. Problem: Discharge Planning Goal: Participation in plan of care 01/20/2020 0002 by Micheal Richardson RN Outcome: Goal Ongoing 01/20/2020 0001 by Micheal Richardson RN Outcome: Goal Ongoing Goal: Knowledge regarding plan of care 01/20/2020 0002 by Micheal Richardson RN Outcome: Goal Ongoing 01/20/2020 0001 by Micheal Richardson RN Outcome: Goal Ongoing Goal: Prepared for discharge 01/20/2020 0002 by Micheal Richardson RN Outcome: Goal Ongoing 01/20/2020 0001 by Micheal Richardson RN Outcome: Goal Ongoing Problem: Falls, High Risk of Goal: Absence of falls-Adult Patient 01/20/2020 0002 by Micheal Richardson RN Outcome: Goal Ongoing 01/20/2020 0001 by Micheal Richardson RN Outcome: Goal Ongoing Problem: Nausea/Vomiting Goal: Absence of nausea and/or vomiting Outcome: Goal Ongoing Goal: Adequate nutritional intake Outcome: Goal Ongoing * Patient Education - Aaron Nagy - 01/19/2020 6:00 PM CDT Pharmacy Anticoagulation Teaching David Ahuja Dwayne was provided with both verbal and written drug information about A pixaban. Discussion with Mr. Rice included: the medication regimen, dosing, mo nitoring, possible adverse effects, food/drug interactions to be aware of and OT C/herbal medication use. Emphasis was placed on the importance of medication com pliance. Mr. Rice was also encouraged to contact the pharmacist with any furth er questions. Aaron Yakov 01/19/2020 1800 * Patient Education - Aaron Nagy - 01/19/2020 5:59 PM CDT Pharmacy Tikosyn Education David Ahuja Dwayne was educated on Tikosyn. Education included obtaining the medicati on following discharge, potential side effects, drug interactions, how to take t he medication, importance of telling all healthcare professionals about Tikosyn use, and answering of any additional patient questions. Mr. Rice was provided a Tikosyn information packet and demonstrated understanding of the information p resented. Mr. Rice was instructed to contact pharmacy if any further questions should arise. Aaron Yakov 01/19/2020 1800 * Care Plan - Lizzie Rodrigez RN - 01/19/2020 4:20 PM CDT Problem: Discharge Planning Goal: Participation in plan of care Flowsheets (Taken 01/19/2020 1619) Participation in Plan of Care: Involve patient/caregiver in care planning margareth on making Goal: Knowledge regarding plan of care Flowsheets (Taken 01/19/2020 1619) Knowledge regarding plan of care: Provide admission education to parent/caregiver Provide plan of care education Provide fall prevention education Provide procedural and treatment education Provide infection prevention education Provide medication management education Goal: Prepared for discharge Flowsheets (Taken 01/19/2020 1619) Prepared for discharge: Complete ADL ability assessment Collaborate with multidisciplinary team for hospital discharge coordination Provide safe use medical equipment education Provide diet and oral health education Problem: Falls, High Risk of Goal: Absence of falls-Adult Patient Flowsheets (Taken 01/19/2020 1619) Absence of falls-Adult Patient: Complete Fall Risk Assessment. Provide safe ambulation. Implement fall risk bundle. Provde safe environment. Provide fall prevention strategies. * Case Mgmt DC Plan - Pricilla Carlson - 01/19/2020 1:33 PM CDT Weekend Needs of SW Instructions for SW W/E Staff: Please check with CV1 team that patient is med ically stable for discharge. Once orders are in, please request Medicaid transpo rtation. Thanks! Weekend Contact at agency/facility: N/A Weekend Fax: N/A Transfer Packet completed (TPOPP & PCS form included as appropriate): N/A Additional family to be contacted: N/A Medication Voucher needed: N/A Additional Resources needed (clothing, meal passes, cab voucher, [employer] [place] [employer], etc): N/A Case Management Progress Note NAME:David Rice : 959 AGE: 59 y.o. ADMISSION DATE: 01/17/2020 DAYS ADMITTED: LOS: 2 days Todays Date: 01/19/2020 Plan Anticipate patient will discharge home likely Wednesday via Medicaid transportation . Interventions ? Support Support: No Needs Identified ? Info or Referral Information or Referral to Community Resources: No Needs Identified ? Discharge Planning Discharge Planning: Transportation Arrangements and/or Resources CM team following for discharge planning needs and to provide support. Per CV1 t easue huddle, patient to likely discharge Wednesday. Patient will need Medicaid trans portation arranged when medically stable. ? Medication Needs Medication Needs: No Needs Identified o Financial Financial: No Needs Identified ? Legal Legal: No Needs Identified ? Other Other/None: No needs identified Disposition ? Expected Discharge Date Expected Discharge Date: 01/21/20 Expected Discharge Time: 1300 ? Transportation Does the patient need discharge transport arranged?: Yes Transportation Name, Phone and Availability #1: Medicaid transport Does the patient use Medicaid Transportation?: No ? Next Level of Care (Acute Psych discharges only) ? Discharge Disposition Durable Medical Equipment No service has been selected for the patient. [facility] Destination No service has been selected for the patient. Home Care No service has been selected for the patient. Dialysis/Infusion No service has been selected for the patient. Pricilla Carlson LMSW [phone] * Care Plan - Bonny Horn RN - 01/19/2020 2:23 AM CDT Patient denies questions/concerns while reviewing POC. Will continue to monitor. Problem: Discharge Planning Goal: Participation in plan of care Outcome: Goal Ongoing Goal: Knowledge regarding plan of care Outcome: Goal Ongoing Goal: Prepared for discharge Outcome: Goal Ongoing Problem: Falls, High Risk of Goal: Absence of falls-Adult Patient Outcome: Goal Ongoing * Case Mgmt DC Plan - Leonela Koch - 01/18/2020 2:33 PM CDT Case Management Progress Note NAME:David Rice : 959 AGE: 59 y.o. ADMISSION DATE: 01/17/2020 DAYS ADMITTED: LOS: 1 day Todays Date: 01/18/2020 Interventions ? Medication Needs NCM called pt's insurance and spoke with rep Pang. Confirmed that Dofetilide 500 mcg PO BID is covered and will cost $0.00. Team updated. Leonela HOUSE, window unit air conditioning mechanic Nurse Light Equipment Operator Inpatient Cardiothoracic Surgery O: [phone] * Case Mgmt DC Plan - Steph Meyers - 01/18/2020 10:26 AM CDT Case Management Admission Assessment NAME:David Rice :[birth year] AGE: 59 y.o. ADMISSION DATE: 01/17/2020 DAYS ADMITTED: LOS: 1 day Todays Date: 01/18/2020 Source of Information: Patient Plan Plan: Case Management Assessment, Discharge Planning for Home Anticipated, Valente mendosa PRN with SW/JAIM[facility] Services SW assisting primary team with completion of assessment and discussion of d/c pl anning needs. SW contacted pt via phone to complete assessment. Pt lives at home by himself in a one level home. There are no steps to enter. Pt reports he does not use DME a nd has no concerns with mobility or navigating the home. Pt has limited support and reports he would not want his sons contacted about anything unless there is a true emergency. His sons live out of town. Pt has HCBS services through [employer] - pt reports that they come daily (p ast EMR states 32 hours a week). They assist with meals, shopping, errands, deborah justin, housekeeping. At discharge, pt will need Medicaid transport arranged. He prefers to be dischar ged early on day of discharge due to the wait for Medicaid to arrive, then dista nce to his home. Primary team to continue to follow for discharge planning. Patient Address/Phone [address] [facility] [address] (home) Emergency Contact Extended Emergency Contact Information Primary Emergency Contact: Kota Rice Address: [place] [address] Mobile Relation: Son Secondary Emergency Contact: Onur Rice Mobile Relation: Son [employer] Diver needed? No Healthcare Directive Healthcare Directive: No, patient does not have a healthcare directive Would patient like to fill out a (a new) Healthcare Directive?: Yes, referral to Social Work Transportation Does the patient need discharge transport arranged?: Yes Transportation Name, Phone and Availability #1: Medicaid transport Does the patient use Medicaid Transportation?: No Expected Discharge Date Living Situation Prior to [...] provides assistance or could if needed?: HCBS services - daily for about 3 h ours Can support system provide 24/7 care if needed?: No ? Level of Function Prior level of function: Needs assist with ADLs Which ADLs require assistance?: housekeeping, laundry, shopping, meals Who assists with ADLs?: HCBS ? Cognitive Abilities Cognitive Abilities: Alert and Oriented, Engages in problem solving and planning , Participates in decision making Financial Resources ? Coverage Primary Insurance: Medicaid([employer]) Additional Coverage: RX ? Source of Income Source Of Income: Other (comment) ? Financial Assistance Needed? No Psychosocial Needs ? Mental Health Mental Health History: No ? Substance Use History Substance Use History Screen: No ? Other N/A Current/Previous Services ? PCP Indiana Bauer, None, None Automatic Machine Attendant: Dr. Rodriguez at ? Pharmacy [facility] - [place], [place] - [address] [facility] [address] [facility] [address] [id number] [place], [place] - [address] [place] [address] [facility] & [address] [facility] [address] ? Durable Medical Equipment Durable Medical Equipment at home: None ? Home Health Receiving home health: No ? Hemodialysis or Peritoneal Dialysis Undergoing hemodialysis or peritoneal dialysis: No ? Tube/Enteral Feeds Receive tube/enteral feeds: No ? Infusion Receive infusions: No ? Private Duty Private duty help used: No ? Home and Community Based Services Home and community based services: Yes Agency name: unsure of agency name, but reports it is through his [employer] Medicaid HCBS assistance hours/week: daily about 3 hours a day Services provided: shopping, cooking, laundry, cleaning, housekeeping tasks ? Lev Escalera: N/A ? Hospice Hospice: No ? Outpatient Therapy PT: No OT: No LINE PILOT: No ? Longterm Facility/Chcf SNF: No NH: No ? Inpatient Rehab IPR: No ? Long-Term Acute Care Hospital LTACH: No ? Acute Hospital Stay Acute Hospital Stay: In the past Was patient's stay within the last 30 days?: No Steph Meyers [facility] [place] *[phone] * Care Plan - Bonny Horn RN - 01/18/2020 7:18 AM CDT Patient denies questions/concerns while reviewing POC. Will continue to monitor. Problem: Discharge Planning Goal: Participation in plan of care Outcome: Goal Ongoing Goal: Knowledge regarding plan of care Outcome: Goal Ongoing Goal: Prepared for discharge Outcome: Goal Ongoing * Advanced Care Planning/Resuscitation Status - Ruth Godinez MD - 01/18/2020 12:58 AM CDT Advance Care Planning/Resuscitation Status Conversation Individuals present for advance care planning conversation: nurse, patient and r esident/fellow physician Pertinent details of conversation (including direct quotes from patient or surro gate): Patient states he would want all ACLS measures if his condition were to d eteriorate or his heart stopped. Outcome of conversation: Full Code Documents completed as a result of this conversation: None Other documents present, which outline patient/surrogate wishes: None Attestation? N/A Ruth Godinez MD Internal Medicine, PGY-3 Pager documented in this encounter Plan of Treatment Order Schedule Name Type Priority Associated Diag noses ONE TIME for 1 Occurrences starting 12/20 until 01/17/2020 ECG 12-LEAD ECG STAT ONE TIME for 1 Occurrences starting 12/21 until 01/18/2020 ECG 12-LEAD ECG Routine documented as of this encounter Goals Goal Patient Associated Recent Progress Patient-Stat Aut hor Goal Type Problems ed? Take Medication at Right Time, Medication No Lind, Right Day, Right Order, With Adherence Danilo Moseley N or Without Food Correctly documented as of this encounter Procedures Comments Procedure Name Priority Date/Time Associated Diag nosis HC PT(INR) Routine 01/22/2020 3:56 AM CDT HC CBC W/ AUTOMATED DIFF Routine 01/22/2020 3:56 AM CDT HC MAGNESIUM Routine 01/22/2020 3:56 AM CDT HC COMPREHENSIVE Routine 01/22/2020 METABOLIC PANEL 3:56 AM CDT ECG 12-LEAD Routine 01/21/2020 5:00 AM CDT ECG 12-LEAD Routine 01/21/2020 5:00 AM CDT HC PT(INR) Routine 01/21/2020 4:38 AM CDT HC CBC W/ AUTOMATED DIFF Routine 01/21/2020 4:38 AM CDT HC MAGNESIUM Routine 01/21/2020 4:38 AM CDT HC COMPREHENSIVE Routine 01/21/2020 METABOLIC PANEL 4:38 AM CDT HC PT(INR) Routine 01/20/2020 9:52 AM CDT ECG 12-LEAD Routine 01/20/2020 5:00 AM CDT HC CBC W/ AUTOMATED DIFF Routine 01/20/2020 4:03 AM CDT HC MAGNESIUM Routine 01/20/2020 4:03 AM CDT HC COMPREHENSIVE Routine 01/20/2020 METABOLIC PANEL 4:03 AM CDT ECG 12-LEAD Routine 01/19/2020 5:00 PM CDT ECG 12-LEAD Routine 01/19/2020 5:00 AM CDT HC PT(INR) Routine 01/19/2020 4:21 AM CDT HC CBC W/ AUTOMATED DIFF Routine 01/19/2020 4:21 AM CDT HC MAGNESIUM Routine 01/19/2020 4:21 AM CDT HC COMPREHENSIVE Routine 01/19/2020 METABOLIC PANEL 4:21 AM CDT POC GLUCOSE 01/18/2020 8:45 PM CDT 2D + DOPPLER ECHO NO Routine 01/18/2020 CONTRAST 9:49 AM CDT HC TROPONIN-I Routine 01/18/2020 6:03 AM CDT UA REFLEX CULTURE LABEL Routine 01/18/2020 3:50 AM CDT URINALYSIS MICROSCOPIC Routine 01/18/2020 REFLEX TO CULTURE 3:50 AM CDT HC URINALYSIS UAR Routine 01/18/2020 3:50 AM CDT HC CBC W/ AUTOMATED DIFF Routine 01/18/2020 3:40 AM CDT HC MAGNESIUM Routine 01/18/2020 3:40 AM CDT HC Add on 01/18/2020 LIPID-5:CHOL/TRG/HDL/LDL+ 3:40 AM CDT VLDL HC COMPREHENSIVE Routine 01/18/2020 METABOLIC PANEL 3:40 AM CDT HC TROPONIN-I STAT 01/18/2020 2:05 AM CDT HC HEMOGLOBIN A1C Specimen 01/18/2020 in Lab 12:17 AM CDT TROPONIN-I STAT 01/18/2020 12:00 AM CDT CHEST 2 VIEWS SONAM 01/17/2020 11:22 PM CDT HC TSH SCREEN Routine 01/17/2020 10:50 PM CDT HC TROPONIN-I STAT 01/17/2020 10:50 PM CDT HC PTT(APTT) Routine 01/17/2020 10:50 PM CDT HC PT(INR) Routine 01/17/2020 10:50 PM CDT HC CBC W/ AUTOMATED DIFF STAT 01/17/2020 10:50 PM CDT HC PHOSPHOROUS, SERUM Routine 01/17/2020 10:50 PM CDT HC B-TYPE NATRIURETIC Routine 01/17/2020 PEPTIDE 10:50 PM CDT HC MAGNESIUM STAT 01/17/2020 10:50 PM CDT HC COMPREHENSIVE STAT 01/17/2020 METABOLIC PANEL 10:50 PM CDT GENERAL RAD CHEST Routine [...] AM CDT ECG-SCAN 01/17/2020 12:00 AM CDT documented in this encounter Results * COMPREHENSIVE METABOLIC PANEL (01/22/2020 3:56 AM CDT) [facility] Sodium 139 137 - 147 MMOL/L [facility] MAIN LAB Potassium 4.2 3.5 - 5.1 MMOL/L [facility]IN [facility] Chloride 109 98 - 110 MMOL/L [facility] MAIN [facility] Glucose 93 70 - 100 MG/DL [facility]IN [facility] Blood Urea 14 7 - 25 MG/DL [facility]IN [facility] Nitrogen Creatinine 1.09 0.4 - 1.24 MG/DL [facility]IN [facility] Calcium 9.0 8.5 - 10.6 MG/DL [facility]IN [facility] Total Protein 6.0 6.0 - 8.0 G/DL [facility]IN [facility] Total Bilirubin 0.5 0.3 - 1.2 MG/DL [facility]IN [facility] Albumin 3.5 3.5 - 5.0 G/DL [facility] MAIN [facility] Alk Phosphatase 60 25 - 110 U/L [facility]IN [facility] AST (SGOT) 20 7 - 40 U/L [facility]IN [facility] CO2 23 21 - 30 MMOL/L [facility]IN [facility] ALT (SGPT) 11 7 - 56 U/L [facility]IN [facility] Anion Gap 7 3 - 12 [facility] MAIN LAB eGFR Non >60 >60 mL/min [facility] MAIN LAB Comment: [place] The eGFR is not validated f or use in drug dosing adjustments. Continue to use estimated creatinine clearance per dosing reference text. Please contact the Clinical Pharmacist for questions. eGFR >60 >60 mL/min [facility] MAIN LAB [place] Comment: The eGFR is not validated for use in drug dosing adjustments. Continue to use estimated creatinine clearance per dosing reference text. Please contact the Clinical Pharmacist for questions. Specimen Blood Performing Organization Address [facility] one Number MAIN LAB [address] [place] [address] * MAGNESIUM (01/22/2020 3:56 AM CDT) Magnesium 2.2 1.6 - 2.6 mg/dL MAIN LAB Specimen Blood Performing Organization Address [facility] one Number MAIN LAB [address] [place] [address] * PROTIME INR (PT) (01/22/2020 3:56 AM CDT) INR 1.1 0.8 - 1.2 MAIN LAB Specimen Blood Performing Organization Address [facility] one Number MAIN LAB [address] [place] [address] * CBC AND DIFF (01/22/2020 3:56 AM CDT) White Blood 8.9 4.5 - 11.0 K/UL [facility] MAIN LAB Cells RBC 5.20 4.4 - 5.5 M/UL [facility] MAIN LAB Hemoglobin 14.5 13.5 - 16.5 GM/DL [facility] MAIN LAB Hematocrit 43.2 40 - 50 % [facility] MAIN LAB MCV 83.0 80 - 100 FL [facility] MAIN LAB MCH 27.9 26 - 34 PG [facility] MAIN LAB MCHC 33.6 32.0 - 36.0 G/DL [facility] MAIN LAB RDW 15.2 (H) 11 - 15 % [facility] MAIN LAB Platelet Count 415 (H) 150 - 400 K/UL [facility] MAIN LAB MPV 8.2 7 - 11 FL [facility] MAIN LAB Neutrophils 62 41 - 77 % [facility] MAIN LAB Lymphocytes 17 (L) 24 - 44 % [facility] MAIN [facility] Monocytes 12 4 - 12 % [facility] MAIN LAB Eosinophils 8 (H) 0 - 5 % MAIN LAB Basophils 1 0 - 2 % MAIN LAB Absolute 5.56 1.8 - 7.0 K/UL [facility] MAIN LAB Neutrophil Count Absolute Lymph 1.51 1.0 - 4.8 K/UL [facility] MAIN LAB Count Absolute 1.03 (H) 0 - 0.80 K/UL [facility] MAIN LAB Monocyte Count Absolute 0.73 (H) 0 - 0.45 K/UL [facility] MAIN LAB Eosinophil Count Absolute 0.11 0 - 0.20 K/UL [facility] MAIN LAB Basophil Count Specimen Blood Performing Organization Address [facility] one Number MAIN LAB [address] [place] [address] * PROTIME INR (PT) (01/21/2020 4:38 AM CDT) INR 1.1 0.8 - 1.2 MAIN LAB Specimen Blood Performing Organization Address [facility] Ph one Number MAIN LAB [address] [place] [address] * MAGNESIUM (01/21/2020 4:38 AM CDT) Magnesium 2.3 1.6 - 2.6 mg/dL MAIN LAB Specimen Blood Performing Organization Address [facility] Ph one Number MAIN LAB [address] [place] [address] * COMPREHENSIVE METABOLIC PANEL (01/21/2020 4:38 AM CDT) Sodium 140 137 - 147 MMOL/L [facility] MAIN LAB Potassium 3.7 3.5 - 5.1 MMOL/L [facility] MAIN LAB Chloride 107 98 - 110 MMOL/L [facility] MAIN LAB Glucose 96 70 - 100 MG/DL [facility] MAIN LAB Blood Urea 14 7 - 25 MG/DL [facility] MAIN LAB Nitrogen Creatinine 1.14 0.4 - 1.24 MG/DL [facility] MAIN LAB Calcium 9.1 8.5 - 10.6 MG/DL [facility] MAIN LAB Total Protein 6.3 6.0 - 8.0 G/DL [facility] MAIN LAB Total Bilirubin 0.4 0.3 - 1.2 MG/DL [facility] MAIN LAB Albumin 3.7 3.5 - 5.0 G/DL [facility] MAIN LAB Alk Phosphatase 62 25 - 110 U/L [facility] MAIN LAB AST (SGOT) 25 7 - 40 U/L [facility] MAIN LAB CO2 26 21 - 30 MMOL/L [facility] MAIN LAB ALT (SGPT) 15 7 - 56 U/L [facility] MAIN LAB Anion Gap 7 3 - 12 [facility] MAIN LAB eGFR Non >60 >60 mL/min [facility] MAIN LAB Comment: [place] The eGFR is not validated f or use in drug dosing adjustments. Continue to use estimated creatinine clearance per dosing reference text. Please contact the Clinical Pharmacist for questions. eGFR >60 >60 mL/min [facility] MAIN LAB [place] Comment: The eGFR is not validated for use in drug dosing adjustments. Continue to use estimated creatinine clearance per dosing reference text. Please contact the Clinical Pharmacist for questions. Specimen Blood Performing Organization Address City/State/Zipcode Ph one Number [facility] MAIN LAB [address] [place] [address] * CBC AND DIFF (01/21/2020 4:38 AM CDT) White Blood 10.2 4.5 - 11.0 K/UL [facility] MAIN LAB Cells RBC 5.30 4.4 - 5.5 M/UL [facility] MAIN LAB Hemoglobin 14.8 13.5 - 16.5 GM/DL [facility] MAIN LAB Hematocrit 44.8 40 - 50 % [facility] MAIN LAB MCV 84.5 80 - 100 FL [facility] MAIN LAB MCH 28.0 26 - 34 PG [facility] MAIN LAB MCHC 33.1 32.0 - 36.0 G/DL [facility] MAIN LAB RDW 15.4 (H) 11 - 15 % [facility] MAIN LAB Platelet Count 414 (H) 150 - 400 K/UL [facility] MAIN LAB MPV 8.1 7 - 11 FL [facility] MAIN LAB Neutrophils 64 41 - 77 % [facility] MAIN LAB Lymphocytes 15 (L) 24 - 44 % [facility] MAIN [facility] Monocytes 11 4 - 12 % [facility] MAIN LAB Eosinophils 8 (H) 0 - 5 % [facility] MAIN LAB Basophils 2 0 - 2 % [facility] MAIN LAB Absolute 6.50 1.8 - 7.0 K/UL [facility] MAIN LAB Neutrophil Count Absolute Lymph 1.57 1.0 - 4.8 K/UL [facility] MAIN LAB Count Absolute 1.16 (H) 0 - 0.80 K/UL [facility] MAIN LAB Monocyte Count Absolute 0.81 (H) 0 - 0.45 K/UL [facility] MAIN LAB Eosinophil Count Absolute 0.19 0 - 0.20 K/UL [facility] MAIN LAB Basophil Count Specimen Blood Performing Organization Address [facility] Ph one Number MAIN LAB [address] [place] [address] * PROTIME INR (PT) (01/20/2020 9:52 AM CDT) INR 1.2 0.8 - 1.2 [facility] MAIN LAB Specimen Blood Performing Organization Address [facility] one Number [facility] MAIN LAB [address] [place] [address] * MAGNESIUM (01/20/2020 4:03 AM CDT) Magnesium 2.2 1.6 - 2.6 mg/dL [facility] MAIN LAB Specimen Blood Performing Organization Address [facility] one Number MAIN LAB [address] [place] [address] * COMPREHENSIVE METABOLIC PANEL (01/20/2020 4:03 AM CDT) Sodium 140 137 - 147 MMOL/L [facility] MAIN LAB Potassium 4.1 3.5 - 5.1 MMOL/L [facility] MAIN LAB Chloride 108 98 - 110 MMOL/L [facility] MAIN LAB Glucose 93 70 - 100 MG/DL [facility] MAIN LAB Blood Urea 15 7 - 25 MG/DL [facility] MAIN [facility] Nitrogen Creatinine 1.10 0.4 - 1.24 MG/DL [facility] MAIN LAB Calcium 9.2 8.5 - 10.6 MG/DL [facility] MAIN LAB Total Protein 6.3 6.0 - 8.0 G/DL [facility] MAIN LAB Total Bilirubin 0.4 0.3 - 1.2 MG/DL [facility] MAIN [facility] Albumin 3.7 3.5 - 5.0 G/DL [facility] MAIN [facility] Alk Phosphatase 59 25 - 110 U/L [facility] MAIN LAB AST (SGOT) 22 7 - 40 U/L [facility] MAIN [facility] CO2 23 21 - 30 MMOL/L [facility] MAIN [facility] ALT (SGPT) 14 7 - 56 U/L [facility] MAIN [facility] Anion Gap 9 3 - 12 [facility] MAIN LAB eGFR Non >60 >60 mL/min [facility] MAIN LAB Comment: [place] The eGFR is not validated f or use in drug dosing adjustments. Continue to use estimated creatinine clearance per dosing reference text. Please contact the Clinical Pharmacist for questions. eGFR >60 >60 mL/min [facility] MAIN LAB [place] Comment: The eGFR is not validated for use in drug dosing adjustments. Continue to use estimated creatinine clearance per dosing reference text. Please contact the Clinical Pharmacist for questions. Specimen Blood Performing Organization Address City/State/Zipcode Ph one Number [facility] MAIN LAB [address] [place] [address] * CBC AND DIFF (01/20/2020 4:03 AM CDT) White Blood 9.6 4.5 - 11.0 K/UL [facility] MAIN LAB Cells RBC 5.18 4.4 - 5.5 M/UL [facility] MAIN LAB Hemoglobin 14.6 13.5 - 16.5 GM/DL [facility] MAIN LAB Hematocrit 43.2 40 - 50 % [facility] MAIN LAB MCV 83.5 80 - 100 FL [facility] MAIN LAB MCH 28.2 26 - 34 PG [facility] MAIN LAB MCHC 33.8 32.0 - 36.0 G/DL [facility] MAIN [facility] RDW 15.6 (H) 11 - 15 % [facility] MAIN LAB Platelet Count 433 (H) 150 - 400 K/UL [facility] MAIN LAB MPV 8.0 7 - 11 FL [facility] MAIN LAB Neutrophils 58 41 - 77 % [facility] MAIN [facility] Lymphocytes 19 (L) 24 - 44 % [facility] MAIN [facility] Monocytes 12 4 - 12 % [facility] MAIN [facility] Eosinophils 10 (H) 0 - 5 % [facility] MAIN [facility] Basophils 1 0 - 2 % [facility] MAIN [facility] Absolute 5.65 1.8 - 7.0 K/UL [facility] MAIN LAB Neutrophil Count Absolute Lymph 1.81 1.0 - 4.8 K/UL [facility] MAIN [facility] Count Absolute 1.13 (H) 0 - 0.80 K/UL [facility] MAIN LAB Monocyte Count Absolute 0.92 (H) 0 - 0.45 K/UL [facility] MAIN LAB Eosinophil Count Absolute 0.14 0 - 0.20 K/UL [facility] MAIN LAB Basophil Count Specimen Blood Performing Organization Address [facility] Ph one Number [facility] MAIN LAB [address] [place] [address] * PROTIME INR (PT) (01/19/2020 4:21 AM CDT) INR 1.2 0.8 - 1.2 [facility] MAIN LAB Specimen Blood Performing Organization Address [facility] one Number [facility] MAIN LAB [address] [place] [address] * MAGNESIUM (01/19/2020 4:21 AM CDT) Magnesium 2.0 1.6 - 2.6 mg/dL [facility] MAIN LAB Specimen Blood Performing Organization Address [facility] one Number MAIN LAB [address] [place] [address] * COMPREHENSIVE METABOLIC PANEL (01/19/2020 4:21 AM CDT) Sodium 141 137 - 147 MMOL/L [facility] MAIN LAB Potassium 4.3 3.5 - 5.1 MMOL/L [facility] MAIN LAB Chloride 108 98 - 110 MMOL/L [facility] MAIN LAB Glucose 96 70 - 100 MG/DL [facility] MAIN [facility] Blood Urea 18 7 - 25 MG/DL [facility] MAIN LAB Nitrogen Creatinine 1.16 0.4 - 1.24 MG/DL [facility] MAIN LAB Calcium 8.9 8.5 - 10.6 MG/DL [facility] MAIN [facility] Total Protein 6.0 6.0 - 8.0 G/DL [facility] MAIN [facility] Total Bilirubin 0.5 0.3 - 1.2 MG/DL [facility] MAIN [facility] Albumin 3.6 3.5 - 5.0 G/DL [facility] MAIN [facility] Alk Phosphatase 61 25 - 110 U/L [facility] MAIN [facility] AST (SGOT) 15 7 - 40 U/L [facility] MAIN [facility] CO2 26 21 - 30 MMOL/L [facility] MAIN [facility] ALT (SGPT) 12 7 - 56 U/L [facility] MAIN [facility] Anion Gap 7 3 - 12 [facility] MAIN LAB eGFR Non >60 >60 mL/min [facility] MAIN LAB Comment: [place] The eGFR is not validated f or use in drug dosing adjustments. Continue to use estimated creatinine clearance per dosing reference text. Please contact the Clinical Pharmacist for questions. eGFR >60 >60 mL/min [facility] MAIN LAB [place] Comment: The eGFR is not validated for use in drug dosing adjustments. Continue to use estimated creatinine clearance per dosing reference text. Please contact the Clinical Pharmacist for questions. Specimen Blood Performing Organization Address City/[facility] one Number [facility] MAIN LAB [address] [place] [address] * CBC AND DIFF (01/19/2020 4:21 AM CDT) White Blood 11.7 (H) 4.5 - 11.0 K/UL [facility] MAIN LAB Cells RBC 5.16 4.4 - 5.5 M/UL [facility] MAIN LAB Hemoglobin 14.2 13.5 - 16.5 GM/DL [facility] MAIN LAB Hematocrit 42.9 40 - 50 % [facility] MAIN LAB MCV 83.2 80 - 100 FL [facility] MAIN LAB MCH 27.5 26 - 34 PG [facility] MAIN [facility] MCHC 33.1 32.0 - 36.0 G/DL [facility] MAIN [facility] RDW 15.5 (H) 11 - 15 % [facility] MAIN LAB Platelet Count 429 (H) 150 - 400 K/UL [facility] MAIN [facility] MPV 8.3 7 - 11 FL [facility] MAIN LAB Neutrophils 63 41 - 77 % [facility] MAIN [facility] Lymphocytes 17 (L) 24 - 44 % [facility] MAIN [facility] Monocytes 11 4 - 12 % [facility] MAIN [facility] Eosinophils 8 (H) 0 - 5 % [facility] MAIN [facility] Basophils 1 0 - 2 % [facility] MAIN [facility] Absolute 7.40 (H) 1.8 - 7.0 K/UL [facility] MAIN LAB Neutrophil Count Absolute Lymph 1.97 1.0 - 4.8 K/UL [facility] MAIN [facility] Count Absolute 1.26 (H) 0 - 0.80 K/UL [facility] MAIN LAB Monocyte Count Absolute 0.89 (H) 0 - 0.45 K/UL [facility] MAIN [facility] Eosinophil Count Absolute 0.14 0 - 0.20 K/UL [facility] MAIN LAB Basophil Count Specimen Blood Performing Organization Address City/[facility]/Zipcode Ph one Number [facility] MAIN LAB [address] [place] [address] * POC GLUCOSE (01/18/2020 8:45 PM CDT) Glucose, POC 94 70 - 100 MG/DL [facility] MAIN LAB Specimen Performing Organization Address City/[facility] Ph one Number [facility] MAIN LAB [address] [place] [address] * 2D + DOPPLER ECHO (01/18/2020 9:49 [...] OTHER OUTSIDE velocity LAB MV Peak A Angelina 0.42 m/s OTHER OUTSIDE LAB MV Peak E Angelina 0.90 m/s OTHER OUTSIDE PW LAB Right [...] 34 OTHER OUTSIDE Index LAB Cardiology Siemens [id number] OTHER OUTSIDE Ultrasound LAB Machine Left Ventricle [...] 2018, EF slightly improved. Performing Organization Address [facility] one Number OTHER OUTSIDE LAB * TROPONIN-I (01/18/2020 6:03 AM CDT) Troponin-I 0.08 (H) 0.0 - 0.05 NG/ML MAIN LAB Specimen Blood Performing Organization Address [facility] one Number MAIN LAB [address] [place] [address] * UA REFLEX CULTURE LABEL (01/18/2020 3:50 AM CDT) UA Reflex Criteria for reflex to culture [facility] LAB Culture are WBC>10, Positive Nitrit e, and/or >=+1 leukocytes. If quantity is not sufficient, an addendum will follow. Specimen Urine Performing Organization Address [facility] one Number [facility] [address] [place] [address] * URINALYSIS MICROSCOPIC REFLEX TO CULTURE (01/18/2020 3:50 AM CDT) WBCs,UA 0-2 0 - 2 /HPF MAIN LAB RBCs,UA 0-2 0 - 3 /HPF MAIN LAB Comment,UA Criteria for reflex to culture [facility] LAB are WBC>10, Positive Nitrite, and/or >=+1 leukocytes. If quantity is not sufficient, an addendum will follow. MucousUA 2+ MAIN LAB Specimen Urine Performing Organization Address [facility] one Number [facility] [address] [place] [address] * URINALYSIS DIPSTICK REFLEX TO CULTURE (01/18/2020 3:50 AM CDT) Color,UA YELLOW [facility] MAIN LAB Turbidity,UA CLEAR CLEAR-CLEAR [facility] MAIN LAB Specific 1.019 1.003 - 1.035 [facility] MAIN LAB [place]-Urine pH,UA 5.0 5.0 - 8.0 KU MAIN [...] Acid, UA Specimen Urine Performing Organization Address [facility] Ph one Number MAIN LAB [address] [place] [id number] * LIPID PROFILE (01/18/2020 3:40 AM CDT) Cholesterol 207 (H) <200 MG/DL [facility] MAIN LAB Triglycerides 171 (H) <150 MG/DL [facility] MAIN LAB HDL 30 (L) >40 MG/DL [facility] MAIN LAB LDL 135 (H) <100 mg/dL [facility] MAIN LAB VLDL 34 MG/DL [facility] MAIN LAB Non HDL 177 MG/DL [facility] MAIN LAB Cholesterol Comment: Calculated non-HDL Cholesterol (non-HDL-C) indirectly measures LDL-C, Lp(a), IDL-C, and VLDL-C. It is a surrogate marker for Apoprotein B. Goal should be less than 130 mg/dL. Specimen Performing Organization Address City/[facility] Ph one Number MAIN LAB [address] [place] [address] * MAGNESIUM (01/18/2020 3:40 AM CDT) Magnesium 2.1 1.6 - 2.6 mg/dL [facility] MAIN LAB Specimen Blood Performing Organization Address [facility] Ph one Number [facility] MAIN LAB [address] [place] [address] * COMPREHENSIVE METABOLIC PANEL (01/18/2020 3:40 AM CDT) Sodium 142 137 - 147 MMOL/L [facility] MAIN LAB Potassium 4.2 3.5 - 5.1 MMOL/L [facility] MAIN LAB Chloride 111 (H) 98 - 110 MMOL/L [facility] MAIN LAB Glucose 101 (H) 70 - 100 MG/DL [facility] MAIN LAB Blood Urea 18 7 - 25 MG/DL [facility] MAIN LAB Nitrogen Creatinine 1.15 0.4 - 1.24 MG/DL [facility] MAIN LAB Calcium 8.8 8.5 - 10.6 MG/DL [facility] MAIN LAB Total Protein 5.9 (L) 6.0 - 8.0 G/DL [facility] MAIN LAB Total Bilirubin 0.3 0.3 - 1.2 MG/DL [facility] MAIN LAB Albumin 3.4 (L) 3.5 - 5.0 G/DL [facility] MAIN LAB Alk Phosphatase 61 25 - 110 U/L [facility] MAIN LAB AST (SGOT) 19 7 - 40 U/L [facility] MAIN LAB CO2 24 21 - 30 MMOL/L [facility] MAIN LAB ALT (SGPT) 13 7 - 56 U/L [facility] MAIN LAB Anion Gap 7 3 - 12 [facility] MAIN LAB eGFR Non >60 >60 mL/min [facility] MAIN LAB Comment: [place] The eGFR is not validated f or use in drug dosing adjustments. Continue to use estimated creatinine clearance per dosing reference text. Please contact the Clinical Pharmacist for questions. eGFR >60 >60 mL/min [facility] MAIN LAB [place] Comment: The eGFR is not validated for use in drug dosing adjustments. Continue to use estimated creatinine clearance per dosing reference text. Please contact the Clinical Pharmacist for questions. Specimen Blood Performing Organization Address City/State/Zipcode Ph one Number [facility] MAIN LAB [address] [place] [address] * CBC AND DIFF (01/18/2020 3:40 AM CDT) White Blood 10.3 4.5 - 11.0 K/UL [facility] MAIN LAB Cells RBC 5.03 4.4 - 5.5 M/UL [facility] MAIN LAB Hemoglobin 14.3 13.5 - 16.5 GM/DL [facility] MAIN LAB Hematocrit 42.0 40 - 50 % [facility] MAIN LAB MCV 83.6 80 - 100 FL [facility] MAIN LAB MCH 28.5 26 - 34 PG [facility] MAIN LAB MCHC 34.1 32.0 - 36.0 G/DL [facility] MAIN LAB RDW 15.3 (H) 11 - 15 % [facility] MAIN LAB Platelet Count 408 (H) 150 - 400 K/UL MAIN LAB MPV 8.3 7 - 11 FL [facility] MAIN LAB Neutrophils 62 41 - 77 % [facility] MAIN LAB Lymphocytes 17 (L) 24 - 44 % [facility] MAIN LAB Monocytes 13 (H) 4 - 12 % [facility] MAIN LAB Eosinophils 8 (H) 0 - 5 % [facility] MAIN LAB Basophils 0 0 - 2 % [facility] MAIN LAB Absolute 6.30 1.8 - 7.0 K/UL [facility] MAIN LAB Neutrophil Count Absolute Lymph 1.79 1.0 - 4.8 K/UL [facility] MAIN LAB Count Absolute 1.31 (H) 0 - 0.80 K/UL [facility] MAIN LAB Monocyte Count Absolute 0.86 (H) 0 - 0.45 K/UL [facility] MAIN LAB Eosinophil Count Absolute 0.02 0 - 0.20 K/UL MAIN LAB Basophil Count Specimen Blood Performing Organization Address City/[facility] Ph one Number MAIN LAB [address] [place] [address] * TROPONIN-I (01/18/2020 2:05 AM CDT) Troponin-I 0.10 (H) 0.0 - 0.05 NG/ML MAIN LAB Specimen Blood Performing Organization Address City/[facility] Ph one Number MAIN LAB [address] [place] [address] * HEMOGLOBIN A1C (01/18/2020 12:17 AM CDT) Hemoglobin A1C 5.6 4.0 - 6.0 % MAIN LAB Comment: The ADA recommends that most patients with type 1 and type 2 diabetes maintain an A1c level <7%. Specimen Blood Performing Organization Address City/[facility] Ph one Number MAIN LAB [address] [place] [address] * TROPONIN-I (01/18/2020 12:00 AM CDT) Troponin-I 0.10 (H) 0.0 - 0.05 NG/ML MAIN LAB Specimen Blood Performing Organization Address [facility] Ph one Number MAIN LAB [address] [place] [address] * CHEST 2 VIEWS (01/17/2020 11:22 PM CDT) Specimen Impressions Performed At No acute cardiopulmonary process. RAD RESULTS Finalized by Kandi Plata M.D. [...] on 01/18/2020 7:00 AM. Performing Organization Address [facility] one Number [facility] RAD RESULTS * TSH WITH FREE T4 REFLEX (01/17/2020 10:50 PM CDT) TSH 4.61 0.35 - 5.00 MCU/ML [facility] MAIN LAB Specimen Blood Performing Organization Address [facility] Ph one Number [facility] MAIN LAB [address] [place] [address] * TROPONIN-I (01/17/2020 10:50 PM CDT) Troponin-I 0.10 (H) 0.0 - 0.05 NG/ML [facility] MAIN LAB Specimen Blood Performing Organization Address [facility] Ph one Number MAIN LAB [address] [place] [address] * BNP (B-TYPE NATRIURETIC PEPTI) (01/17/2020 10:50 PM CDT) B Type 292.0 (H) 0 - 100 PG/ML [facility] MAIN LAB Natriuretic Peptide Specimen Blood Performing Organization Address [facility] Ph one Number [facility] MAIN LAB [address] [place] [address] * PHOSPHORUS (01/17/2020 10:50 PM CDT) Phosphorus 3.2 2.0 - 4.5 MG/DL [facility] MAIN LAB Specimen Blood Performing Organization Address [facility] Ph one Number [facility] MAIN LAB [address] [place] [address] * MAGNESIUM (01/17/2020 10:50 PM CDT) Magnesium 2.1 1.6 - 2.6 mg/dL [facility] MAIN LAB Specimen Blood Performing Organization Address [facility] one Number [facility] MAIN LAB [address] [place] [address] * COMPREHENSIVE METABOLIC PANEL (01/17/2020 10:50 PM CDT) Sodium 143 137 - 147 MMOL/L [facility] MAIN LAB Potassium 3.7 3.5 - 5.1 MMOL/L [facility] MAIN LAB Chloride 110 98 - 110 MMOL/L [facility] MAIN LAB Glucose 93 70 - 100 MG/DL [facility] MAIN LAB Blood Urea 17 7 - 25 MG/DL [facility] MAIN LAB Nitrogen Creatinine 1.07 0.4 - 1.24 MG/DL [facility] MAIN LAB Calcium 9.0 8.5 - 10.6 MG/DL [facility] MAIN LAB Total Protein 6.3 6.0 - 8.0 G/DL [facility] MAIN LAB Total Bilirubin 0.3 0.3 - 1.2 MG/DL [facility] MAIN LAB Albumin 3.6 3.5 - 5.0 G/DL [facility] MAIN LAB Alk Phosphatase 65 25 - 110 U/L [facility] MAIN LAB AST (SGOT) 17 7 - 40 U/L [facility] MAIN LAB CO2 22 21 - 30 MMOL/L [facility] MAIN LAB ALT (SGPT) 13 7 - 56 U/L [facility] MAIN LAB Anion Gap 11 3 - 12 [facility] MAIN LAB eGFR Non >60 >60 mL/min [facility] MAIN LAB Comment: [place] The eGFR is not validated f or use in drug dosing adjustments. Continue to use estimated creatinine clearance per dosing reference text. Please contact the Clinical Pharmacist for questions. eGFR >60 >60 mL/min [facility] MAIN LAB [place] Comment: The eGFR is not validated for use in drug dosing adjustments. Continue to use estimated creatinine clearance per dosing reference text. Please contact the Clinical Pharmacist for questions. Specimen Blood Performing Organization Address [facility] System/[facility] Ph one Number [facility] MAIN LAB [address] [place] [address] * PTT (APTT) (01/17/2020 10:50 PM CDT) APTT 31.0 24.0 - 36.5 SEC [facility] Specimen Blood Performing Organization Address [facility] one Number [facility] MAIN [facility] [address] [place] [address] * PROTIME INR (PT) (01/17/2020 10:50 PM CDT) INR 1.0 0.8 - 1.2 MAIN LAB Specimen Blood Performing Organization Address [facility] one Number [facility] MA[facility] [address] [place] [address] * CBC AND DIFF (01/17/2020 10:50 PM CDT) White Blood 11.4 (H) 4.5 - 11.0 K/UL MAIN LAB Cells RBC 5.28 4.4 - 5.5 M/UL [facility] MAIN [facility] Hemoglobin 14.8 13.5 - 16.5 GM/DL [facility] MAIN [facility] Hematocrit 44.0 40 - 50 % [facility] MA[facility] MCV 83.3 80 - 100 FL MAIN LAB MCH 28.0 26 - 34 PG MAIN LAB MCHC 33.6 32.0 - 36.0 G/DL MAIN LAB RDW 15.3 (H) 11 - 15 % [facility] MAIN [facility] Platelet Count 431 (H) 150 - 400 K/UL [facility] MAIN [facility] MPV 8.4 7 - 11 FL [facility] Neutrophils 63 41 - 77 % [facility] Lymphocytes 18 (L) 24 - 44 % [facility] Monocytes 11 4 - 12 % [facility] Eosinophils 7 (H) 0 - 5 % [facility] Basophils 1 0 - 2 % [facility] Absolute 7.29 (H) 1.8 - 7.0 K/UL [facility] Neutrophil Count Absolute Lymph 2.03 1.0 - 4.8 K/UL [facility] Count Absolute 1.24 (H) 0 - 0.80 K/UL [facility] MA[facility] Monocyte Count Absolute 0.74 (H) 0 - 0.45 K/UL [facility] MA[facility] Eosinophil Count Absolute 0.13 0 - 0.20 K/UL MAIN LAB Basophil Count Specimen Blood Performing Organization Address City/State/Zipcode Ph one Number MAIN LAB [address] [place] [address] * TELEMETRY STRIPS-SCAN (01/17/2020 12:00 AM CDT) [...] available. Ordered by an unspecified provider. * GENERAL RAD CHEST EXTERNAL IMAGING (01/17/2020 12:00 AM CDT) Specimen Narrative Performed At This order has been auto finalized and does not contain a result. documented in this encounter Visit Diagnoses Diagnosis Paroxysmal atrial fibrillation (HCC) Atrial fibrillation Atrial fibrillation with RVR (HCC) Atrial fibrillation Essential hypertension Unspecified essential hypertension Hyperlipidemia Other and unspecified hyperlipidemia S/P ablation of atrial fibrillation Other postprocedural status Atrial flutter with rapid ventricular r esponse (HCC) Atrial flutter documented in this encounter Administered Medications Action Date Dose Rate Site Medication Order MAR Action 01/22/2020 8:36 AM CDT 650 mg acetaminophen (TYLENOL) tablet 650 mg Given 650 mg, Oral, EVERY 6 HOURS PRN, Starting 01/17/20 at 2256, Until 01/22/20 at 1420, Pain non-opioid: may be used alone or in combination with opioi d analgesia, TOTAL ACETAMINOPHEN DOSE NOT TO EXCEED 4GM DAILY, 650 mg Given 01/21/2020 4:09 PM CDT 650 mg Given 01/20/2020 10:44 PM CDT 01/21/2020 11:10 PM CDT 0.5 mg ALPRAZolam (XANAX) tablet 0.5 mg Given 0.5 mg, Oral, EVERY 6 HOURS PRN, Starting Jenny 01/18/20 at 0033, Until 01/22/20 at 1420, Anxiety PO 0.5 mg Given 01/21/2020 3:56 AM CDT 0.5 mg Given 01/20/2020 7:32 PM CDT 01/22/2020 8:36 AM CDT 5 mg apixaban (ELIQUIS) tablet 5 mg Given 5 mg, Oral, TWICE DAILY, First dose on Jenny 01/18/20 at 0600, Until Discontinued , NOTE: This is a HIGH ALERT Medication., 5 mg Given 01/21/2020 9:01 PM CDT 5 mg Given 01/21/2020 8:20 AM CDT atorvastatin (LIPITOR) tablet 40 mg 40 mg, Oral, DAILY, First dose on Wed01/22/20 at 0930, Until Discontinued bismuth subsalicylate (PEPTO-BISMOL) oral suspension 30 mL 30 mL, Oral, EVERY 6 HOURS PRN, Starting Wed01/19/20 at 0932, Until Wed01/22/20 at 1420, Indigestion/Heartburn, DO NOT EXCEED 8 DOSES/DAY, 01/21/2020 9:24 AM CDT 125 mcg dofetilide (TIKOSYN) capsule 125 mcg Given 125 mcg, Oral, EVERY 10 HOURS, First dose (after last modification) on 01/20/20 at 1300, Until Discontinued, - Notify physician BEFORE initiating if baseline QTc >440 msec (500 msec in patients with ventricular conduction abnormalities). - Two hours after firs t dose: record QTc on eMAR (include date & time). Notify manager french prior to giving next dose if: QTc increase by >15% or to >500 msec, or >550 msec in patients with ventricular conduction abnormalities or ventricular pacing. , - Two hours after all subsequent doses: record QTc on eMAR (include date & time). Notify manager french prior to giving next dose if: QTc increase to >500 msec or >550 msec in patients with ventricular conduction abnormalities or ventricular pacing. NOTE: This is a HIG H ALERT Medication., - Orders placed for dofetilide after 2100 will start the following morning at 0700. Adjust start time/date accordingly., 125 mcg Given 01/20/2020 11:22 PM CDT 125 mcg Given 01/20/2020 1:29 PM CDT 01/22/2020 9:02 AM CDT 125 mcg dofetilide (TIKOSYN) capsule 125 mcg Given 125 mcg, Oral, TWICE DAILY, First dose (after last modification) on Wed01/21/20 at 2100, Until Discontinued, - Notify physician BEFORE initiating if baseline QTc >440 msec (500 msec in patients wit h ventricular conduction abnormalities). - Two hours after first dose: record QT c on eMAR (include date & time). Notify manager french prior to giving next dose if: QTc increase by >15% or to >500 msec, or >550 msec in patients with ventricular conduction abnormalities or ventricular pacing. , - Two hours after all subsequent doses: record QTc on Sybil R (include date & time). Notify manager french prior to giving next dose if: QTc increase to >500 msec or >550 msec in patients with ventricular conduction abnormalities or ventricular pacing. NOTE: This is a HIGH ALERT Medication., - Orders placed for dofetilide after 2099 will start the following morning at 0700. Adjust start time/date accordingly., 125 mcg Given 01/21/2020 9:06 PM CDT 01/19/2020 4:29 PM CDT 250 mcg dofetilide (TIKOSYN) capsule 250 mcg Given 250 mcg, Oral, EVERY 10 HOURS, First dose (after last modification) on Wed01/19/20 at 1600, Until Discontinued, - Notify physician BEFORE initiating if baseline QTc >440 msec (500 msec in patients with ventricular conduction abnormalities). - Two hours after firs t dose: record QTc on eMAR (include date & time). Notify manager french prior to giving next dose if: QTc increase by >15% or to >500 msec, or >550 msec in patients with ventricular conduction abnormalities or ventricular pacing. , - Two hours after all subsequent doses: record QTc on eMAR (include date & time). Notify manager french prior to giving next dose if: QTc increase to >500 msec or >550 msec in patients with ventricular conduction abnormalities or ventricular pacing. NOTE: This is a HIG H ALERT Medication., - Orders placed for dofetilide after 2099 will start the following morning at 0700. Adjust start time/date accordingly., 01/19/2020 2:34 AM CDT 500 mcg dofetilide (TIKOSYN) capsule 500 mcg Given 500 mcg, Oral, EVERY 10 HOURS, First dose on Wed01/18/20 at 1600, Until Discontinued, - Notify physician BEFORE initiating if baseline QTc >440 msec (500 msec in patients with ventricular conduction abnormalities). - Two hours after first dose: record QTc on eMAR (include date & time). Notify manager french prior to giving next dose if: QTc increase by >15% or to >500 msec, or >550 msec in patients with ventricular conduction abnormalities or ventricular pacing. , - Two hours after all subsequent doses: record QTc on Sybil R (include date & time). Notify manager french prior to giving next dose if: QTc increase to >500 msec or >550 msec in patients with ventricular conduction abnormalities or ventricular pacing. NOTE: This is a HIGH ALERT Medication., - Orders placed for dofetilide after 2099 will start the following morning at 0700. Adjust start time/date accordingly., 500 mcg Given 01/18/2020 4:38 PM CDT 01/22/2020 9:00 AM CDT 1 lozenge eucalyptus-menthol (HALLS) lozenge 1 Given lozenge 1 lozenge, Oral, EVERY 2 HOURS PRN, Starting Jenny 01/18/20 at 0101, Until 01/22/20 at 1420, Mouth/Throat Pain 1 lozenge Given 01/20/2020 5:58 PM CDT 1 lozenge Given 01/20/2020 8:24 AM CDT 01/20/2020 8:23 AM CDT 25 mcg levothyroxine (SYNTHROID) tablet 25 mcg Given 25 mcg, Oral, DAILY, First dose on Jenny 01/18/20 at 0700, Until Discontinued, Give 1 hour before a meal. If patient is receiving tube feedings, hold tube feed 1hr before and 1hr after dose., 25 mcg Given 01/19/2020 6:14 AM CDT 25 mcg Given 01/18/2020 6:10 AM CDT 01/22/2020 6:12 AM CDT 50 mcg levothyroxine (SYNTHROID) tablet 50 mcg Given 50 mcg, Oral, DAILY, First dose (after last modification) on 01/21/20 at 0700, Until Discontinued, Give 1 hour before a meal. If patient is receiving tube feedings, hold tube feed 1hr befor e and 1hr after dose., 50 mcg Given 01/21/2020 8:15 AM CDT 01/22/2020 8:37 AM CDT 1 patch Leg, Lef t lidocaine (LIDODERM) 5 % topical patch 1 Patch/Topic a patch l Applied 1 patch, Topical, Administer over 12 Hours, DAILY, First dose on 01/21/20 at 0900, Until Discontinued, NURSING PLEASE NOTE: Apply patch ONCE DAILY to leg and REMOVE after designated duration. Apply only to intact skin. Patch may be cut to fit affected area., 1 patch Leg, Upper Left Patch/Topical Applied 01/21/2020 9:24 AM CDT 01/21/2020 11:10 PM CDT 5 mg melatonin tablet 5 mg Given 5 mg, Oral, AT BEDTIME PRN, Starting Sa t 01/20/20 at 2302, Until Wed01/22/20 at 1420, Insomnia 01/22/2020 8:36 AM CDT 5 mg oxyCODONE (ROXICODONE) tablet 5 mg Given 5 mg, Oral, EVERY 6 HOURS PRN, Startin g 01/17/20 at 2256, Until Wed01/22/20 a t 1420, Pain PO 5 mg Given 01/21/2020 11:21 AM CDT 5 mg Given 01/21/2020 3:56 AM CDT 01/21/2020 8:20 AM CDT 17 g polyethylene glycol 3350 (MIRALAX) Given packet 17 g 17 g (1 packet), Oral, TWICE DAILY, First dose (after last modification) on Wed01/19/20 at 2100, Until Discontinued, 8.5 GRAMS = 0.5 PACKET 17 GRAMS = 1 PACKET 34 GRAMS = 2 PACKETS, 01/18/2020 12:44 AM CDT 40 mEq potassium chloride SR (K-DUR) tablet 40 Given mEq 40 mEq, Oral, ONCE, 1 dose, [facility] 01/18/20 at 0030 01/21/2020 8:15 AM CDT 40 mEq potassium chloride SR (K-DUR) tablet 40 Given mEq 40 mEq, Oral, ONCE, 1 dose, [place] 01/21/20 at 0630, - Tablet may be dispersed in water. Place tab in 30 mL of water for 40-60 seconds. - Gently swirl until fully dispersed. If particles remain after admin, add small amount of water and admin remaining content. - DO NOT CRUSH. Tablet may be split in half. , 01/19/2020 10:24 AM CDT 1 tablet senna/docusate (SENOKOT-S) tablet 1 Given tablet 1 tablet, Oral, TWICE DAILY, First dose on Wed01/18/20 at 1230, Until Discontinued, Hold for loose stools, 01/21/2020 9:01 PM CDT 2 tablets senna/docusate (SENOKOT-S) tablet 2 Given tablet 2 tablet, Oral, TWICE DAILY, First dose (after last modification) on 5/1/20 at 2100, Until Discontinued, Hold for loose stools, 2 tablets Given 01/21/2020 8:20 AM CDT 2 tablets Given 01/20/2020 7:32 PM CDT trimethobenzamide (TIGAN) capsule 300 m g 300 mg, Oral, THREE TIMES DAILY PRN, Starting Wed01/19/20 at 1951, Until 01/22/20 at 1420, Nausea/Vomiting PO, Other..., nausea/vomiting; prolonged QT c 01/19/2020 11:02 PM CDT 200 mg Deltoid, Left trimethobenzamide (TIGAN) injection 200 Given mg 200 mg, Intramuscular, EVERY 6 HOURS PRN, Starting Wed01/19/20 at 1951, Until Wed01/22/20 at 1420, Nausea/Vomiting Injectable 01/22/2020 8:43 AM CDT Leg, Lef t Verification of Patch Placement and Patch/Topica Integrity - Lidocaine 5% l Verified TWICE DAILY, First dose on 01/21/20 a t 0900, Until Discontinued, Patch checks are required every shift to ensure the patch is still intact and in place. Please verify patch check findings summer jara NOV entry., Leg, Lower Left Patch/Topical Verified 01/21/2020 9:07 PM CDT Leg, Upper Left Patch/Topical Verified 01/21/2020 9:25 AM CDT documented in this encounter
--- OUTSIDE RECORDS SUMMARY | 2020-03-11 20:47 | XMS REPORT | Encounter Summary ---
Author Author [facility] Organization [facility] Address Unknown Phone Unavailable Care Team Providers Care Deputy Administrator Name Role Phone Sherman Spicer MD Unavailable Reyna Bond Unavailable Unavailable Indiana Bauer APRN PCP Unavailable Encounter Details Care Team Description Date Type Department 01/17/2020 [facility] [address] [address] Social History Date Tobacco Use [...] daily. Indications: prevention of recurrent atrial fibrillation 01/20/2020 levothyroxine (SYNTHROID) Take 50 mcg 0 25 mcg tablet by mouth daily. 01/20/2020 oxyCODONE/acetaminophen Take 1 tablet 0 (PERCOCET; ENDOCET; by mouth ROXICET) 5/325 mg tablet every 4 hours as needed for Pain 04/24/2019 01/20/[address] Take one 74 tablet 0 (PROTONIX) 40 mg tablet tablet by mouth twice daily. Start 1 week before ablation & continue for 30 days after ablation. 01/22/2020 03/01/2020 senna/docusate Take two 60 tablet 0 (SENOKOT-S) 8.6/50 mg tablets by tablet mouth twice daily. 05/26/2019 01/20/2020 sucralfate (CARAFATE) 1 Take one 60 tablet 0 gram tablet tablet by mouth twice daily. Take on an empty stomach. 02/02/2020 vit A-vit Take 2 0 K-wqsqzk-cbnm-copper tablets by (ZLOP-LAEX-VKDT(VIT mouth daily. A,C-BIOTIN)) 2,500 unit-100 mg-2,500 mcg cap 02/02/2020 vitamins, multiple (DAILY Take 1 tablet 0 MULTI-VITAMIN) tablet by mouth daily. documented as of this encounter Plan [...] Name Priority Date/Time Associated Diag nosis ECG-SCAN 01/20/2020 12:00 AM CDT ECG-SCAN 01/20/2020 12:00 AM CDT ECG-SCAN 01/20/2020 12:00 AM CDT ECG-SCAN 01/20/2020 12:00 AM CDT GENERAL RAD CHEST Routine 01/17/2020 EXTERNAL IMAGING 12:00 AM CDT documented in this encounter Results * ECG-SCAN (01/20/2020 12:00 AM CDT) Narrative [...] provider. documented in this encounter Visit Diagnoses Not on filedocumented in this encounter
--- OUTSIDE RECORDS SUMMARY | 2020-03-11 20:47 | XMS REPORT | Encounter Summary ---
Author Author [facility] Organization [facility] Address Unknown Phone Unavailable Care Team Providers Care Cryogenics Engineer Name Role Phone Sherman Spicer MD Unavailable Reyna Bond Unavailable Unavailable Indiana Bauer APRN PCP Unavailable Reason for Visit * Reason Comments Follow-up Phone Call returned call, lm to c/b Encounter Details Care Team Description Date Type Department Ya Howard RN Follow-up Phone Call (returned call, to c/b) 01/05/[address] [place] [address] Social History Date Tobacco Use Types Packs/Day [...] has a heart question. Call him at #[phone]. documented in this encounter Plan of Treatment [...]
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
--- OUTSIDE RECORDS SUMMARY | 2020-03-11 20:48 | XMS REPORT | Encounter Summary ---
Author Author [facility] Organization [facility] Address Unknown Phone Unavailable Care Team Providers Care Hay Rake Operator Name Role Phone Sherman Spicer MD Unavailable Reyna Bond Unavailable Unavailable Indiana Bauer APRN PCP Unavailable Reason for Visit * Reason Comments Cardiac Clearance full mouth teeth extraction Encounter Details Care Team Description Date Type Department Rafia Snyder RN Cardiac Clearance (full mouth teeth extr action ) 09/26/2019 Tele[address] [id number] Social History Date Tobacco Use Types Packs/Day [...] Rafia Snyder RN - 09/26/2019 8:49 AM MINE MOTOR ENGINEER RN called [facility] ( [phone] fax [phone]) after provider signed surgery risk assessment form that was faxed to [facility] on 09/21/2019. RN was informed by GORDO Reza that patient has cancelled his proce dure scheduled for 09/27/2019 and has not rescheduled. Libia asked that RN go arlette bee and fax surgery risk assessment form to [facility] so that if needed they can forward on cardiac assessment to Dr. [facility]. RN to fax cardiac assessment and recommendation form to provided fax jean-pierre norwood [phone]. Patient scheduled for full mouth teeth extraction [...] able. GORDO Jackson. Dr. Yasir Colon (dentist) [facility] Of [address] [address] [facility], [address] [address] MOTOR ENGINEER documented in this encounter Plan of Treatment [...]
--- OUTSIDE RECORDS SUMMARY | 2020-03-11 20:48 | XMS REPORT | Encounter Summary ---
Author Author [facility] Organization [facility] Address Unknown Phone Unavailable Care Team Providers Care Hoister Name Role Phone Sherman Spicer MD Unavailable Reyna Bond Unavailable Unavailable Indiana Bauer APRN PCP Unavailable Reason for Referral * CTA Procedure (Routine) Referred By Contact Referred To Contact Status Reason Specialty Diagnoses / Procedures Kelby Rodriguez MD [address] [address] New Request Radiology Diagnoses S/P ablation of atrial fibrillation Paroxysmal atrial fibrillation (HCC) Essential hypertension Acute pericarditis, unspecified type P rocedures CT CARDIAC STRUCTURE WO/W CONT * CTA Procedure (Routine) Referred By Contact Referred To Contact Status Reason Specialty Diagnoses / Procedures Kelby Rodriguez MD [address] [address] New Request Radiology Diagnoses S/P ablation of atrial fibrillation Paroxysmal atrial fibrillation (HCC) Essential hypertension Acute pericarditis, unspecified type P rocedures CT LMTD CHEST W CARDIAC Encounter Details Care Team Description Date Type Department Ya Howard RN 10/11/2019 Telephone [facility] [address] [place] [phone] Social History Date Tobacco Use Types Packs/Day [...] Rafia Snyder RN - 10/12/2019 2:48 PM POTLINE MONITOR Addended by: RAFIA SNYDER on: 10/12/2019 02:48 PM Modules accepted: Orders INE MONITOR * Telephone Encounter - Rafia Snyder RN - 10/12/2019 2:46 PM POTLINE MONITOR RN received notification from pre certification that 3 month post ablation CCTA denied. RN reordered CCTA with appropriate diagnoses associated. RN to reach dede k out to pre certification team to verify that CCTA will be covered/is still pedro eduled for 10/16/2019. Will remain available. GORDO Jackson. INE MONITOR * Telephone Encounter - Ya Howard RN - 10/11/2019 3:52 PM POTLINE MONITOR returned call to David. left message that he should be done around 1 pm however, did stress that this is an estimate. offered that we could call his ride when he is close to finishing if that would help asked him to cb if further questions INE MONITOR * Telephone Encounter - Ya Howard RN - 10/11/2019 3:52 PM POTLINE MONITOR ----- Message from Mercy Carbajal LPN sent at 10/11/2019 12:27 PM POTLINE MONITOR ----- Regarding: MPE- RTC- he wanted to know how long his appointment will take on Wed. He is having to get a ride and needs to know. He is at # [phone]. INE MONITOR documented in this encounter Plan of Treatment [...]
--- OUTSIDE RECORDS SUMMARY | 2020-03-11 20:48 | XMS REPORT | Encounter Summary ---
Author Author [facility] Organization [facility] Address Unknown Phone Unavailable Care Team Providers Care Gifted Program Teacher Name Role Phone Sherman Spicer MD Unavailable Reyna Bond Unavailable Unavailable Indiana Bauer APRN PCP Unavailable Reason for Visit * Reason Comments Other post ablation ct canceled i nsurance denied Encounter Details Care Team Description Date Type Department Sally Rendon RN Other (post ablation ct canceled insuran ce denied) 10/13/[address] [facility] [address] [id number] Social History Date Tobacco Use [...] Sally Rendon RN - 10/13/2019 7:51 AM MECHANICAL TECHNOLOGIST ----- Message from Rafia Snyder RN sent at 10/12/2019 3:36 PM MECHANICAL TECHNOLOGIST ----- Regarding: RE: CTA denied MPE does not want to pursue CCTA. ----- Message ----- From: Sally Rendon RN Sent: 10/12/2019 2:39 PM MECHANICAL TECHNOLOGIST To: Rafia Snyder RN Subject: RE: CTA denied They just said insurance would not cover it?? ----- Message ----- From: Rafia Snyder RN Sent: 10/12/2019 1:48 PM MECHANICAL TECHNOLOGIST To: Sally Rendon RN Subject: RE: CTA denied Yes, his CT is for post ablation. I will review with MPE and get back to you. An y particular reason CT was denied? ----- Message ----- From: Cecy He RN Sent: 10/12/2019 1:20 PM MECHANICAL TECHNOLOGIST To: Rafia Snyder RN Subject: FW: CTA denied ----- Message ----- From: Sally Rendon RN Sent: 10/12/2019 12:39 PM MECHANICAL TECHNOLOGIST To: Cv Nurse Ep Subject: CTA denied Just wanted to let you know insurance denied ct. Looks like pre cert was [facility]. I see that he is post ablation, does he need ct? Pt is coming 10/16 Mo nday for OV and ct ANICAL TECHNOLOGIST documented in this encounter Plan of Treatment [...]
--- OUTSIDE RECORDS SUMMARY | 2020-03-11 20:53 | XMS REPORT ---
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 Active 81866251 Problem History of atrial flutter Z86.79 Acti ve 813285692 Problem Portal vein thrombosis I81 Active 51522285 Problem Chronic pain syndrome G89.4 Active 55767312 Problem Severe major depression with psychotic features F3 2.3 Active 44365739 Problem Mass of sinus R22.0 Active 008089 7 Problem Other chronic pain G89.29 Active 8 9949576 Problem Gastroesophageal reflux disease, esophagitis pre sence not specified K21.9 Active 409579315 Problem Urinary hesitancy R39.11 Active 59 44826 Problem Acute non-recurrent frontal sinusitis J01.10 Active 88421281 Problem Major depressive disorder, recurrent, moderate F33 .1 Active 84587550 Problem Diverticulitis K57.92 Active 38943 6006 Problem Posttraumatic stress disorder F43.10 Active 56709971 Problem Elevated platelet count D47.3 Active 914269780 Problem Chronic hepatitis C without hepatic coma B18.2 Active 810565415 Problem Acquired hypothyroidism E03.9 Active 592791536 Problem Sleep disorder G47.9 Active 31431 005 ALLERGIES No Information ENCOUNTERS Encounter Location Date Diagnosis [facility] [address] [id number] [place] [address] Dec, Mouth pain K13.79 and Nausea R11.0 [facility] [address] [id number] [place] [address] Dec, OUTREACH [address] [place] [address] Dec, [address] 340B [id number] [place] [address] 14 Dec, 2019 Chronic pain syndrome G89.4 and Posttraumatic stress disorder F43.10 [facility] [address] 340B [id number] [place] [address] 13 Dec, 2019 Chronic pain syndrome G89.4 and Posttraumatic stress disorder F43.10 [facility] JADIEL [address] 340B [id number] [place] [address] 13 Dec, [address] [id number] [place] [address] 31 Nov, [address] 340B [id number] [place] [address] 19 Nov, 2019 Chronic pain syndrome G89.4 and Posttraumatic stress disorder F43.[address] [id number] [place] [address] 17 Nov, 2019 [facility] [address] [id number] [address] [place] [place] [id number] 24 Oct, 2019 [facility] [address] [id number] [address] [place] [place] [address] [id number] Oct, [facility] [address] [place] [address] Oct, Caries K02.9 [facility] [address] [id number] [place] [address] 18 Oct, [address] [id number] [place] [address] 18 Oct, 2019 Chronic pain syndrome G89.4 and Posttraumatic stress disorder F43.10 [address] [id number] [place] [address] 18 Oct, [address] [id number] [place] [address] 14 Oct, 2019 Chronic pain syndrome G89.4 and Posttraumatic stress disorder F43.10 [facility] [address] [id number] [address] [place] [place] [address] [id number] Oct, [address] 340 [id number] [place] [address] Sep, Epigastric abdominal pain R1 0.13 ; Diverticulitis K57.92 and Viral upper respiratory tract infection J06.[address] 340B [id number] [place] [address] Sep, Posttraumatic stress disorde r F43.[address] 340B [id number] [place] [address] Sep, Chronic pain syndrome G89.4 and Posttraumatic stress disorder F43.[address] 340 [id number] [place] [address] Sep, [facility] [address] [facility] [id number] [address] [address] Sep, [address] 340 [id number] [place] [address] Sep, [address] 340 [id number] [place] [address] Sep, Dental abscess K04.7 ; Histo ry of atrial flutter Z86.79 and Neck pain M54.[address] 340 [id number] [place] [address] Sep, [address] 340 [id number] [place] [address] Sep, Acquired hypothyroidism E03. 9 [facility] [address] [place] [address] Aug, 201 9 Posttraumatic stress disorder F43.10 and Chronic pain syndrome G89.[address] 340B [id number] [place] [address] Aug, Chronic pain syndrome G89.4 and Dental caries K02.[address] 340 [id number] [place] [address] Aug, [address] 340B [id number] [place] [address] Jul, Sleep disorder G47.9 [facility] [address] [id number] [place] [id number] Jul, Caries K02.[address] 340B [id number] [place] [address] Jun, Low back pain M54.5 and Othe r chronic pain G89.[address] 340B [id number] [place] [address] Jun, [address] 340B [id number] [place] [address] Jun, Sleep disorder G47.[address] 340B [id number] [place] [address] Jun, Sleep disorder G47.[address] 340B [id number] [place] [address] Jun, Lightheadedness R42 and [place] al abscess K04.7 [facility] [address] [id number] [place] [id number] Jun, Dental examination Z01.20 an d Caries K02.[address] 340B [id number] [place] [address] Jun, [address] 340B [id number] [place] [address] Jun, Encounter for immunization Z [address] 340B [id number] [place] [address] Jun, Dental abscess K04.[address] pain, unspecified type R07.[address] 340B [id number] [place] [address] Jun, Encounter for immunization Z [address] 340B [id number] [place] [address] 30 May, 2019 Sleep disorder G47.9 [facility] [address] 340B [id number] [place] [address] 24 May, 2019 Chronic pain syndrome G89.4 [facility] JADIEL [address] 340B [id number] [place] [address] 16 May, 2019 History of atrial flutter Z8 6.79 ; Chronic pain syndrome G89.4 and Acquired hypothyroidism E03.9 [facility] JADIEL ANDRADE [address] [id number] [place] [address] May, [facility] JADIEL [address] 340B [id number] [place] [address] May, Nausea R11.0 and Lightheaded ness R42 [facility] [address] 340B [id number] [place] [address] May, Sleep disorder G47.9 [facility] [address] [id number] [place] [address] Apr, Acute non-recurrent frontal sinusitis J01.10 and Tick bite, initial encounter W57.XXXA [facility] [address] 340B [id number] [place] [address] Apr, Sleep disorder G47.9 [facility] JADIEL [address] 340B [id number] [place] [address] Mar, Sleep disorder G47.9 [facility] JADIEL [facility] [address] 340 [id number] [place] [address] Mar, [facility] JADIEL [address] 340B [id number] [place] [address] Mar, [facility] [address] 340[address] [id number] [place] [address] Feb, History of atrial flutter Z8 6.79 and Muscle cramping R25.2 [facility] JADIEL [address] 340B [id number] [place] [address] Feb, [facility] AND[facility] [address] 340B [id number] [place] [address] Feb, [facility] [address] 340B [id number] [place] [address] Feb, Cellulitis of left upper ext remity L03.114 and Sleep disorder G47.9 [facility] AND[facility] [address] 340B [id number] [place] [address] Feb, Muscle cramping R25.2 [facility] AND[facility] [address] 340B [id number] [place] [address] January, Chronic pain syndrome G89.4 [facility] AND[facility] [address] 340B [id number] [place] [address] January, [facility] [address] 340B [id number] [place] [address] January, Chronic pain syndrome G89.4 ; Dizziness R42 ; Acquired hypothyroidism E03.9 ; Low back pain M54.5 ; Pulmonary embolism without acute cor pulmonale, unspecified chronicity, unspecified pulmonary embolism type I26.99 and Sleep disorder G47.9 [facility] AND[facility] [address] 340B [id number] [place] [address] January, [facility] [address] 340B [id number] [place] [address] January, [facility] [address] [facility] [id number] [address] [place] [address] Sep, Chronic pain syndrome G89.4 [facility] [address] [facility] [id number] [address] [place] [address] Sep, [facility] [address] [facility] [id number] [address] [place] [address] Sep, [facility] [address] [facility] [id number] [address] [place] [address] Sep, [facility] [address] [id number] [address] [place] [address] Sep, [facility] [address] [facility] [id number] [address] [place] [address] Sep, [facility] [address] [facility] [id number] [address] [place] [address] Sep, [facility] [address] [facility] [id number] [address] [place] [address] Aug, [facility] [address] [facility] [id number] [address] [place] [address] Aug, Portal vein thrombosis I81 ; Chronic pain syndrome G89.4 ; Other acute pulmonary embolism without acute cor pulmonale I26.99 and Chronic hepatitis C without hepatic coma B18.2 [facility] [address] [facility] [id number] [address] [place] [address] Aug, [facility] [address] [facility] [id number] [address] [place] [address] Aug, [facility] [address] [facility] [id number] [address] [place] [address] Jul, Major depressive disorder, r ecurrent, moderate F33.1 and Posttraumatic stress disorder F43.10 [facility] [address] [facility] [id number] [address] [place] [address] Jul, Gastroesophageal reflux dise ase, esophagitis presence not specified K21.9 [facility] [address] [facility] [id number] [address] [place] [address] Jun, [facility] [address] [facility] [id number] [address] [place] [address] Jun, [facility] [address] [facility] [id number] [address] [place] [address] Jun, Posttraumatic stress disorde r F43.10 and Severe major depression with psychotic features F32.3 [facility] [address] [facility] [id number] [address] [place] [address] Apr, [facility] [address] [id number] [address] [place] [address] Apr, Mass of sinus R22.0 ; Athero sclerotic heart disease of sioux coronary artery with unspecified angina pectoris I25.119 and Elevated platelet count D47.3 [facility] [address] [id number] [address] [place] [address] Apr, Severe major depression with psychotic features F32.3 and Posttraumatic stress disorder F43.10 [facility] [address] [id number] [address] [place] [address] January, [facility] [address] [id number] [address] [place] [address] January, Posttraumatic stress disorde r F43.10 and Severe major depression with psychotic features F32.3 [facility] [address] [id number] [address] [place] [address] Dec, 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 and Elevated platelet count D47.3 [facility] [address] [id number] [address] [place] [address] Dec, [facility] [address] [id number] [address] [place] [address] Dec, Low energy R53.83 ; Atherosc lerotic heart disease of sioux coronary artery with unspecified angina pectoris I25.119 ; Gastroesophageal reflux disease, esophagitis presence not specified K21.9 and Urinary hesitancy R39.11 [facility] [address] [id number] [address] [place] [address] Dec, Posttraumatic stress disorde r F43.10 and Severe major depression with psychotic features F32.3 [facility] [address] [id number] [address] [place] [address] Oct, [facility] [address] [id number] [address] [place] [address] Sep, Mass of sinus R22.0 [facility] [address] [id number] [address] [place] [address] Sep, Dysuria R30.0 ; Low back avi n M54.5 ; Other chronic pain G89.29 ; Poor nutrition E63.9 ; Gastroesophageal reflux disease, esophagitis presence not specified K21.9 and Mass of sinus R22.0 [facility] [address] [id number] [address] [place] [address] Sep, Posttraumatic stress disorde r F43.10 and Severe major depression with psychotic features F32.3 [facility] [address] [id number] [address] [place] [address] Sep, [facility] [address] [id number] [address] [place] [address] Aug, [place] [address] [id number] [address] [place] [address] Aug, Encounter for immunization Z 23 [facility] [address] [id number] [address] [place] [address] Jul, Posttraumatic stress disorde r F43.10 ; Severe major depression with psychotic features F32.3 and Major depressive disorder, recurrent, moderate F33.1 [facility] [address] [id number] [address] [place] [address] Jun, [facility] [address] [id number] [address] [place] [address] Jun, [facility] [address] [id number] [address] [place] [address] May, [facility] [address] [id number] [address] [place] [address] Apr, [facility] [address] [id number] [address] [place] [address] Apr, Posttraumatic stress disorde r F43.10 and Severe major depression with psychotic features F32.3 [place] [address] [id number] [address] [place] [address] Mar, [facility] [address] [id number] [address] [place] [address] Feb, [facility] [address] [id number] [address] [place] [address] January, [facility] [address] [id number] [address] [place] [address] January, Posttraumatic stress disorde r F43.10 and Severe major depression with psychotic features F32.3 [facility] [address] [id number] [address] [place] [address] Dec, [facility] [address] [id number] [address] [place] [address] Nov, [facility] [address] [id number] [address] [place] [address] Nov, [facility] [address] [id number] [address] [place] [address] Oct, Posttraumatic stress disorde r F43.10 and Severe major depression with psychotic features F32.3 [facility] [address] [id number] [address] [place] [address] Sep, Encounter for immunization Z 23 ; Posttraumatic stress disorder F43.10 and Severe major depression with psychotic features F32.3 [facility] [address] [id number] [address] [place] [address] Aug, [facility] [address] [id number] [address] [place] [address] Aug, [facility] [address] [facility] [id number] [address] [place] [address] Jul, Encounter for immunization Z 23 ; Posttraumatic stress disorder F43.10 and Severe major depression with psychotic features F32.3 [facility] [address] [facility] [id number] [address] [place] [address] Jun, [facility] [address] [id number] [address] [place] [address] Jun, Mass of sinus R22.0 ; Low ba ck pain M54.5 and Paroxysmal atrial fibrillation I48.0 [facility] [address] [id number] [address] [place] [address] May, [facility] [address] [id number] [address] [place] [address] Apr, Posttraumatic stress disorde r 309.81 and Major depressive disorder, recurrent episode, moderate 296.32 [facility] [address] [id number] [address] [place] [address] Apr, [facility] [address] [id number] [address] [place] [address] Mar, Major depressive disorder, r ecurrent episode, moderate 296.32 and Posttraumatic stress disorder 309.81 [facility] [address] [id number] [address] [place] [address] Feb, [facility] [address] [id number] [address] [place] [address] Feb, [facility] [address] [id number] [address] [place] [address] January, [facility] [address] [id number] [address] [place] [address] January, [facility] [address] [id number] [address] [place] [address] January, [facility] [address] [id number] [address] [place] [address] Dec, [facility] [address] [id number] [address] [place] [address] Dec, [facility] [address] [id number] [address] [place] [address] Nov, [facility] [address] [id number] [address] [place] [address] 06 Nov, 2014 [facility] [address] [id number] [address] [place] [address], [place] [address] Nov, 2014 [facility] [address] [id number] [address] [place] [address], [place] [address] Nov, 2014 [facility] [address] [id number] [address] [place] [address], [place] [address] Nov, 2014 [facility] [address] [id number] [address] [place] [address], [place] [address] 04 Nov, 2014 [facility] [address] [id number] [address] [place] [address], [place] [address] Nov, [facility] [address] [id number] [address] [place] [address], [place] [address] Nov, 2014 [facility] [address] [id number] [address] [place] [address], [place] [address] Oct, 2014 [facility] [address] [id number] [address] [place] [address], [place] [address] Oct, 2014 [facility] [address] [id number] [address] [place] [address], [place] [address] Oct, 2014 [facility] [address] [id number] [address] [place] [address], [place] [address] 16 Oct, 2014 [facility] [address] [id number] [address] [place] [address], [place] [address] Oct, 2014 [facility] [address] [id number] [address] [place] [address], [place] [address] 16 Oct, 2014 [facility] [address] [id number] [address] [place] [address], [place] [address] Oct, 2014 [facility] [address] [id number] [address] [place] [address], [place] [address] Oct, 2014 [facility] [address] [id number] [address] [place] [address], [place] [address] Oct, 2014 [facility] [address] [id number] [address] [place] [address], [place] [address] Oct, 2014 [facility] [address] [id number] [address] [place] [address], [place] [address] Oct, 2014 [facility] [address] [id number] [address] [place] [address], [place] [address] Oct, 2014 [facility] [address] [id number] [address] [place] [address], [place] [address] Oct, 2014 [facility] [address] [id number] [address] [place] [address], [place] [address] Oct, 2014 [facility] [address] [id number] [address] [place] [address], [place] [address] Oct, 2014 [facility] [address] [id number] [address] [place] [address], [place] [address] Oct, 2014 [facility] [address] [id number] [address] [place] [address], [place] [address] Sep, [facility] [address] [id number] [address] [place] [address], [place] [address] Sep, [facility] [address] [id number] [address] [place] [address], [place] [address] Sep, [facility] [address] [id number] [address] [place] [address], [place] [address] Sep, [facility] [address] [id number] [address] [place] [address], [place] [address] Aug, [facility] [address] [id number] [address] [place] [address], [place] [address] Aug, [facility] [address] [id number] [address] [place] [address], [place] [address] Aug, [facility] [address] [id number] [address] [place] [address], [place] [address] Aug, [facility] [address] [id number] [address] [place] [address], [place] [address] Aug, [facility] [address] [id number] [address] [place] [address], [place] [address] Aug, [facility] [address] [id number] [address] [place] [address], [place] [address] Aug, [facility] [address] [id number] [address] [place] [address], [place] [address] Aug, [facility] [address] [id number] [address] [place] [address], [place] [address] Aug, [facility] [address] [id number] [address] [place] [address], [place] [address] Aug, [facility] [address] [id number] [address] [place] [address], [place] [address] Aug, [facility] [address] [id number] [address] [place] [address], [place] [address] Aug, [facility] [address] [id number] [address] [place] [address], [place] [address] Aug, [facility] [address] [id number] [address] [place] [address], [place] [address] Aug, [facility] [address] [id number] [address] [place] [address], [place] [address] Aug, [facility] [address] [id number] [address] [place] [address], [place] [address] Aug, [facility] [address] [id number] [address] [place] [address], [place] [address] Jul, [facility] [address] [address] [id number] [address] [place] [address], [place] [address] Jul, [facility] [address] [id number] [address] [place] [address], [place] [address] Jul, [facility] [address] [id number] [address] [place] [address], [place] [address] Jul, [facility] [address] [id number] [address] [place] [address], [place] [address] Jul, [facility] [address] [id number] [address] [place] [address], [place] [address] Jul, [facility] [address] [id number] [address] [place] [address], [place] [address] Jun, [facility] [address] [id number] [address] [place] [address], [place] [address] Jun, [facility] [address] [id number] [address] [place] [address], [place] [address] Jun, [facility] [address] [id number] [address] [place] [address], [place] [address] Jun, [facility] [address] [id number] [address] [place] [address], [place] [address] Jun, [facility] [address] [id number] [address] [place] [address], [place] [address] Jun, [facility] [address] [id number] [address] [place] [address], [place] [address] Jun, [facility] [address] [id number] [address] [place] [address], [place] [address] Jun, [facility] [address] [id number] [address] [place] [address], [place] [address] Jun, [facility] [address] [id number] [address] [place] [address], [place] [address] Jun, [facility] [address] [id number] [address] [place] [address], [place] [address] Jun, [facility] [address] [id number] [address] [place] [address], [place] [address] Jun, [facility] [address] [id number] [address] [place] [address], [place] [address] Jun, [facility] [address] [id number] [address] [place] [address], [place] [address] Jun, [facility] [address] [id number] [address] [place] [address], [place] [address] May, [facility] [address] [id number] [address] [place] [address], [place] [address] May, [facility] [address] [id number] [address] [place] [address], [place] [address] May, [facility] [address] [id number] [address] [place] [address], [place] [address] May, [facility] [address] [id number] [address] [place] [address], [place] [address] Apr, [facility] [address] [id number] [address] [place] [address], [place] [address] Apr, [facility] [address] [id number] [address] [place] [address], [place] [address] Apr, [facility] [address] [id number] [address] [place] [address], [place] [address] Apr, [facility] [address] [id number] [address] [place] [address], [place] [address] Mar, [facility] [address] [id number] [address] [place] [address], [place] [address] Mar, [facility] [address] [id number] [address] [place] [address], [place] [address] Mar, [facility] [address] [id number] [address] [place] [address], [place] [address] Mar, [facility] [address] [id number] [address] [place] [address], [place] [address] Mar, [facility] [address] [id number] [address] [place] [address], [place] [address] Mar, [facility] [address] [id number] [address] [place] [address], [place] [address] Mar, [facility] [address] [id number] [facility] [place] [address] Mar, [facility] [address] [id number] [facility] [place] [address] Mar, [facility] [address] [id number] [facility] [place] [address] Mar, [facility] [address] [id number] [address] [place] [address], [place] [address] Mar, [facility] [address] [id number] [address] [place] [address], [place] [address] Mar, [facility] [address] [id number] [address] [place] [address], [place] [address] Feb, [facility] [address] [id number] [address] [place] [address], [place] [address] Feb, [facility] [address] [id number] [address] [place] [address], [place] [address] Feb, [facility] [address] [id number] [address] [place] [address], [place] [address] Feb, [facility] [address] [id number] [address] [place] [address], [place] [address] Feb, [facility] [address] [id number] [address] [place] [address], [place] [address] Feb, [facility] [address] [id number] [address] [place] [address], [place] [address] January, [facility] [address] [id number] [address] [place] [address], [place] [address] January, [facility] [address] [id number] [address] [place] [address], [place] [address] January, [facility] [address] [id number] [address] [place] [address], [place] [address] January, [facility] [address] [id number] [address] [place] [address], [place] [address] January, [facility] [address] [id number] [address] [place] [address], [place] [address] January, [facility] [address] [id number] [address] [place] [address], [place] [address] Nov, [facility] [address] [id number] [address] [place] [address], [place] [address] Nov, [facility] [address] [id number] [address] [place] [address], [place] [address] Nov, [facility] [address] [id number] [address] [place] [address], [place] [address] Nov, [facility] [address] [id number] [address] [place] [address], [place] [address] Oct, [facility] [address] [id number] [address] [place] [address], [place] [address] Oct, [facility] [address] [id number] [address] [place] [address], [place] [address] Sep, [facility] [address] [id number] [address] [place] [address], [place] [address] Sep, [facility] [address] [id number] [address] [place] [address], [place] [address] Sep, [facility] [address] [id number] [address] [place] [address], [place] [address] Sep, [facility] [address] [id number] [address] [place] [address], [place] [address] Sep, [facility] [address] [id number] [address] [place] [address], [place] [address] Aug, [facility] [address] [id number] [address] [place] [address], [place] [address] Aug, [facility] [address] [id number] [address] [place] [address], [place] [address] Jul, [facility] [address] [id number] [address] [place] [address] Jul, [facility] [address] [id number] [address] [place] [address], [place] [address] Jul, [facility] [address] [id number] [address] [place] [address], [place] [address] Jun, [facility] [address] [id number] [address] [place] [address], [place] [address] Jun, [facility] [address] [id number] [address] [place] [address], [place] [address] Jun, [facility] [address] [id number] [address] [place] [address], [place] [address] Jun, [facility] [address] [id number] [address] [place] [address], [place] [address] Apr, [facility] [address] [id number] [address] [place] [address], [place] [address] Mar, [facility] [address] [id number] [address] [place] [address], [place] [address] Mar, [facility] [address] [id number] [address] [place] [address], [place] [address] January, [facility]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
--- OUTSIDE RECORDS SUMMARY | 2020-03-11 20:53 | XMS REPORT ---
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 Active 94832966 Problem Mass of sinus R22.0 Active 665350 7 Problem Chronic pain syndrome G89.4 Active 38434197 Problem Posttraumatic stress disorder F43.10 Active 18052696 Problem Severe major depression with psychotic features F3 2.3 Active 16175416 Problem Gastroesophageal reflux disease, esophagitis pre sence not specified K21.9 Active 081381550 Problem Urinary hesitancy R39.11 Active 59 78345 Problem Elevated platelet count D47.3 Active 820643741 Problem Diverticulitis K57.92 Active 89711 6006 Problem Other chronic pain G89.29 Active 8 5696611 Problem Paroxysmal atrial fibrillation I48.0 Active 421278851 Problem Major depressive disorder, recurrent, moderate F33 .1 Active 31915950 Problem Chronic hepatitis C without hepatic coma B18.2 Active 765987188 Problem Sleep disorder G47.9 Active 34464 005 Problem Acquired hypothyroidism E03.9 Active 385019631 Problem Acute non-recurrent frontal sinusitis J01.10 Active 35049224 ALLERGIES No Information ENCOUNTERS Encounter Location Date Diagnosis [address] 340[address] [id number] [place] [address] January, [address] 340[address] [id number], [place] [address] January, [address] 340[address] [id number], [place] [address] January, Mass of neck R22.1 ; Penile rash R21 and Paroxysmal atrial fibrillation I48.0 [facility] [address] [id number] [place] [address] 16 Jan, 2020 [facility] [address] [id number] [address] [address] 12 Jan, 2020 Chronic pain syndrome G89.4 and Posttraumatic stress disorder F43.[address] 340[address] [id number] [place] [address] 12 Jan, 2020 Chronic pain syndrome G89.4 and Posttraumatic stress disorder F43.10 [facility] [address] 340 [id number] [place] [address] 15 Dec, 2019 Mouth pain K13.79 and Nausea R11.0 [facility] [address] 340 [id number] [place] [address] 15 Dec, [address] [place] [address] 15 Dec, [address] 340[address] [id number], [place] [address] 14 Dec, 2019 Chronic pain syndrome G89.4 and Posttraumatic stress disorder F43.[address] 340[address] [id number] [place] [address] 13 Dec, 2019 Chronic pain syndrome G89.4 and Posttraumatic stress disorder F43.[address] 340[address] [id number] [place] [address] 13 Dec, [address] 340[address] [id number], [place] [address] 31 Nov, [address] 340[address] [id number], [place] [address] 19 Nov, 2019 Chronic pain syndrome G89.4 and Posttraumatic stress disorder F43.[address] 340B [id number] [place] [address] 17 Nov, 2019 [facility] [address] [id number] [place] [id number] Oct, [facility] [address] [id number] [address] [place] [id number] Oct, [facility] [address] [place] [address] Oct, Caries K02.9 [facility] [address] [id number] [address] [address] Oct, [address] 340B [id number], [place] [address] Oct, Chronic pain syndrome G89.4 and Posttraumatic stress disorder F43.[address] 340[address] [id number], [place] [address] Oct, [address] 340[address] [id number], [place] [address] Oct, Chronic pain syndrome G89.4 and Posttraumatic stress disorder F43.10 [facility] [address] [facility] [id number] [address] [id number] Oct, [address] 340[address] [id number], [place] [address] Sep, Epigastric abdominal pain R1 0.13 ; Diverticulitis K57.92 and Viral upper respiratory tract infection J06.[address] 340[address] [id number], [place] [address] Sep, Posttraumatic stress disorde r F43.[address] 340[address] [id number], [place] [address] Sep, Chronic pain syndrome G89.4 and Posttraumatic stress disorder F43.[address] 340[address] [id number], [place] [address] Sep, [facility] [address] [id number] [address] [address] Sep, [address] 340[address] [id number], [place] [address] Sep, [address] 340B [id number] [place] [address] Sep, Dental abscess K04.7 ; Histo ry of atrial flutter Z86.79 and Neck pain M54.[address] 340B [id number], [place] [address] Sep, [address] 340[address] [id number], [place] [address] Sep, Acquired hypothyroidism E03. 9 [facility] [address] [place] [address] Aug, 9 Posttraumatic stress disorder F43.10 and Chronic pain syndrome G89.[address] 340B [id number], [place] [address] Aug, Chronic pain syndrome G89.4 and Dental caries K02.[address] 340[address] [id number], [place] [address] Aug, [address] 340B [id number], [place] [address] Jul, Sleep disorder G47.9 [facility] [address] [id number] [address] [id number] Jul, Caries K02.[address] 340 [id number], [place] [address] Jun, Low back pain M54.5 and Othe r chronic pain G89.[address] 340[address] [id number], [place] [address] Jun, [address] 340[address] [id number], [place] [address] Jun, Sleep disorder G47.[address] 340B [id number], [place] [address] Jun, Sleep disorder G47.[address] 340[address] [id number] [place] [address] Jun, Lightheadedness R42 and Polk al abscess K04.7 [facility] [address] [id number] [address] [id number] Jun, Dental examination Z01.20 an d Caries K02.[address] 340B [id number] [place] [address] Jun, [address] 340B [id number], [place] [address] Jun, Encounter for immunization Z [address] 340B [id number], [place] [address] Jun, Dental abscess K04.[address] pain, unspecified type R07.[address] 340B [id number], [place] [address] Jun, Encounter for immunization Z [address] 340B [id number], [place] [address] May, Sleep disorder G47.[address] 340B [id number], [place] [address] May, Chronic pain syndrome G89.[address] 340B [id number], [place] [address] 16 May, 2019 History of atrial flutter Z8 6.79 ; Chronic pain syndrome G89.4 and Acquired hypothyroidism E03.[address] 340B [id number], [place] [address] May, [address] 340B [id number], [place] [address] May, Nausea R11.0 and Lightheaded ness R42 [address] 340B [id number] [place] [address] May, Sleep disorder G47.9 [facility] [address] 340 [id number] [place] [address] Apr, Acute non-recurrent frontal sinusitis J01.10 and Tick bite, initial encounter W57.XXXA [facility] [address] 340B [id number] [place] [address] Apr, Sleep disorder G47.9 [facility] [address] 340B [id number] [place] [address] Mar, Sleep disorder G47.9 [facility] [address] 340 [id number] [place] [address] Mar, [facility] [address] 340B [id number] [place] [address] Mar, LIZ [place] [address] 340B [id number] [place] [address] Feb, History of atrial flutter Z8 6.79 and Muscle cramping R25.2 [facility] [address] 340B [id number] [place] [address] Feb, [facility] [address] 340B [id number] [place] [address] Feb, [facility] [address] 340B [id number] [place] [address] Feb, Cellulitis of left upper ext remity L03.114 and Sleep disorder G47.9 [facility] [address] 340B [id number] [place] [address] Feb, Muscle cramping R25.2 [facility] [address] 340B [id number] [place] [address] January, Chronic pain syndrome G89.4 [facility] [address] 340B [id number] [place] [address] January, [facility] [address] 340B [id number] [place] [address] January, Chronic pain syndrome G89.4 ; Dizziness R42 ; Acquired hypothyroidism E03.9 ; Low back pain M54.5 ; Pulmonary embolism without acute cor pulmonale, unspecified chronicity, unspecified pulmonary embolism type I26.99 and Sleep disorder G47.9 [facility] JADIEL [address] 340B [id number] [place] [address] January, [address] 340B [id number], [place] [address] January, [facility] [address] [id number] [address] [place] [address] Sep, Chronic pain syndrome G89.4 [facility] [address] [id number] [address] [place] [address] Sep, [facility] [address] [id number] [address] [place] [address] Sep, [facility] [address] [id number] [address] [place] [address] Sep, [facility] [address] [id number] [address] [place] [address] Sep, [facility] [address] [id number] [address] [place] [address] Sep, [facility] [address] [id number] [address] [place] [address] Sep, [facility] [address] [id number] [address] [place] [address] Aug, [facility] [address] [id number] [address] [place] [address] Aug, Portal vein thrombosis I81 ; Chronic pain syndrome G89.4 ; Other acute pulmonary embolism without acute cor pulmonale I26.99 and Chronic hepatitis C without hepatic coma B18.2 [facility] [address] [id number] [address] [place] [address] Aug, [facility] [address] [id number] [address] [place] [address] Aug, [facility] [address] [id number] [address] [place] [address] Jul, Major depressive disorder, r ecurrent, moderate F33.1 and Posttraumatic stress disorder F43.10 [place] [address] [id number] [address] [place] [address] Jul, Gastroesophageal reflux dise ase, esophagitis presence not specified K21.9 [facility] [address] [id number] [address] [place] [address] Jun, [facility] [address] [id number] [address] [place] [address] Jun, [facility] [address] [facility] [id number] [address] [place] [address] Jun, Posttraumatic stress disorde r F43.10 and Severe major depression with psychotic features F32.3 [place] [address] [facility] [id number] [address] [place] [address] Apr, [place] [address] [facility] [id number] [address] [place] [address] Apr, Mass of sinus R22.0 ; Athero sclerotic heart disease of red devil coronary artery with unspecified angina pectoris I25.119 and Elevated platelet count D47.3 [place] [address] [facility] [id number] [address] [place] [address] Apr, Severe major depression with psychotic features F32.3 and Posttraumatic stress disorder F43.10 [place] [address] N [facility] [id number] [address] [place] [address] January, [place] [address] [facility] [id number] [address] [place] [address] January, Posttraumatic stress disorde r F43.10 and Severe major depression with psychotic features F32.3 [place] [address] [facility] [id number] [address] [place] [address] Dec, 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 and Elevated platelet count D47.3 [place] [address] [facility] [id number] [address] [place] [address] Dec, [place] [address] [facility] [id number] [address] [place] [address] Dec, Low energy R53.83 ; Atherosc lerotic heart disease of red devil coronary artery with unspecified angina pectoris I25.119 ; Gastroesophageal reflux disease, esophagitis presence not specified K21.9 and Urinary hesitancy R39.11 [place] [address] [facility] [id number] [address] [place] [address] Dec, Posttraumatic stress disorde r F43.10 and Severe major depression with psychotic features F32.3 [place] [address] [place] [id number] [place] [address] Oct, [place] [address] [place] [id number] [place] [address] Sep, Mass of sinus R22.0 [place] [address] [place] [id number] [place] [address] Sep, Dysuria R30.0 ; Low back avi n M54.5 ; Other chronic pain G89.29 ; Poor nutrition E63.9 ; Gastroesophageal reflux disease, esophagitis presence not specified K21.9 and Mass of sinus R22.0 [place] [address] [place] [id number] [address] [place] [address] Sep, Posttraumatic stress disorde r F43.10 and Severe major depression with psychotic features F32.3 [place] [address] [place] [id number] [address] [place] [address] Sep, [place] [address] [place] [id number] [place] [address] Aug, [place] [address] [place] [id number] [place] [address] Aug, Encounter for immunization Z 23 [facility] [address] [id number] [address] [place] [address] Jul, Posttraumatic stress disorde r F43.10 ; Severe major depression with psychotic features F32.3 and Major depressive disorder, recurrent, moderate F33.1 [facility] [address] [id number] [address] [place] [address] Jun, [facility] [address] [id number] [address] [place] [address] Jun, [facility] [address] [id number] [address] [place] [address] May, [facility] [address] [id number] [address] [place] [address] Apr, [facility] [address] [id number] [address] [place] [address] Apr, Posttraumatic stress disorde r F43.10 and Severe major depression with psychotic features F32.3 [facility] [address] [id number] [address] [place] [address] Mar, [facility] [address] [id number] [address] [place] [address] Feb, [facility] [address] [id number] [address] [place] [address] January, [facility] [address] [id number] [address] [place] [address] January, Posttraumatic stress disorde r F43.10 and Severe major depression with psychotic features F32.3 [facility] [address] [id number] [address] [place] [address] Dec, [facility] [address] [id number] [address] [place] [address] Nov, [facility] [address] [id number] [address] [place] [address] Nov, [facility] [address] [place] [id number] [address] [place] [address] Oct, Posttraumatic stress disorde r F43.10 and Severe major depression with psychotic features F32.3 [facility] [address] [place] [id number] [place] [address] Sep, Encounter for immunization Z 23 ; Posttraumatic stress disorder F43.10 and Severe major depression with psychotic features F32.3 [place] [address] [place] [id number] [place] [address] Aug, [place] [address] [place] [id number] [place] [address] Aug, [place] [address] [address] Jul, Encounter for immunization Z 23 ; Posttraumatic stress disorder F43.10 and Severe major depression with psychotic features F32.3 [place] [address] [address] Jun, [place] [address] [address] Jun, Mass of sinus R22.0 ; Low ba ck pain M54.5 and Paroxysmal atrial fibrillation I48.0 [place] [address] [place] [id number] [address] [place] [address] May, [place] [address] [address] Apr, Posttraumatic stress disorde r 309.81 and Major depressive disorder, recurrent episode, moderate 296.32 [place] [address] [place] [id number] [place] [address] Apr, [place] [address] [address] Mar, Major depressive disorder, r ecurrent episode, moderate 296.32 and Posttraumatic stress disorder 309.81 [place] [address] [place] [id number] [place] [address] Feb, [facility] [address] [id number] [address] [place] [address], [place] [address] Feb, [facility] [address] [id number] [address] [place] [address], [place] [address] January, [facility] [address] [id number] [address] [place] [address], [place] [address] January, [facility] [address] [id number] [address] [place] [address], [place] [address] January, [facility] [address] [id number] [address] [place] [address], [place] [address] Dec, [facility] [address] [id number] [address] [place] [address], [place] [address] Dec, [facility] [address] [id number] [address] [place] [address], [place] [address] Nov, [facility] [address] [id number] [address] [place] [address], [place] [address] Nov, [facility] [address] [id number] [address] [place] [address], [place] [address] Nov, [facility] [address] [id number] [address] [place] [address], [place] [address] Nov, [facility] [address] [id number] [address] [place] [address], [place] [address] Nov, [facility] [address] [id number] [address] [place] [address] Nov, [facility] [address] [id number] [address] [place] [address], [place] [address] Nov, [facility] [address] [id number] [address] [place] [address], [place] [address] Nov, [facility] [address] [id number] [address] [place] [address], [place] [address] Oct, [facility] [address] [id number] [address] [place] [address], [place] [address] 27 Oct, 2014 [facility] [address] [id number] [address] [place] [address], [place] [address] 16 Oct, 2014 [facility] [address] [id number] [address] [place] [address], [place] [address] 16 Oct, 2014 [facility] [address] [id number] [address] [place] [address], [place] [address] Oct, 2014 [facility] [address] [id number] [address] [place] [address], [place] [address] Oct, 2014 [facility] [address] [id number] [address] [place] [address], [place] [address] Oct, 2014 [facility] [address] [id number] [address] [place] [address], [place] [address] Oct, 2014 [facility] [address] [id number] [address] [place] [address] Oct, 2014 [facility] [address] [id number] [address] [place] [address], [place] [address] Oct, 2014 [facility] [address] [id number] [address] [place] [address] 05 Oct, 2014 [facility] [address] [id number] [address] [place] [address] Oct, 2014 [facility] [address] [id number] [address] [place] [address] Oct, 2014 [facility] [address] [id number] [address] [place] [address], [place] [address] Oct, 2014 [facility] [address] [id number] [address] [place] [address] Oct, 2014 [facility] [address] [id number] [address] [place] [address] Oct, 2014 [facility] [address] [id number] [address] [place] [address], [place] [address] 08 Sep, 2014 [facility] [address] [id number] [address] [place] [address], [place] [address] Sep, [facility] [address] [id number] [address] [place] [address], [place] [address] Sep, [facility] [address] [id number] [address] [place] [address], [place] [address] Sep, [facility] [address] [id number] [address] [place] [address], [place] [address] Aug, [facility] [address] [id number] [address] [place] [address], [place] [address] Aug, [facility] [address] [id number] [address] [place] [address], [place] [address] Aug, [facility] [address] [id number] [address] [place] [address], [place] [address] Aug, [facility] [address] [id number] [address] [place] [address], [place] [address] Aug, [facility] [address] [id number] [address] [place] [address], [place] [address] Aug, [facility] [address] [id number] [address] [place] [address], [place] [address] Aug, [facility] [address] [id number] [address] [place] [address], [place] [address] Aug, [facility] [address] [id number] [address] [place] [address], [place] [address] Aug, [facility] [address] [id number] [address] [place] [address], [place] [address] Aug, [facility] [address] [id number] [address] [place] [address], [place] [address] Aug, [facility] [address] [id number] [address] [place] [address], [place] [address] Aug, [facility] [address] [id number] [address] [place] [address], [place] [address] Aug, [facility] [address] [id number] [address] [place] [address], [place] [address] Aug, [facility] [address] [id number] [address] [place] [address], [place] [address] Aug, [facility] [address] [id number] [address] [place] [address], [place] [address] Aug, [facility] [address] [id number] [address] [place] [address], [place] [address] Jul, [facility] [address] [id number] [address] [place] [address], [place] [address] Jul, [facility] [address] [id number] [address] [place] [address], [place] [address] Jul, [facility] [address] [id number] [address] [place] [address], [place] [address] Jul, [facility] [address] [id number] [address] [place] [address], [place] [address] Jul, [facility] [address] [id number] [address] [place] [address], [place] [address] Jul, [facility] [address] [id number] [address] [place], [place] [address], [place] [address] Jun, [facility] [address] [id number] [address] [place] [address], [place] [address] Jun, [facility] [address] [id number] [address] [place] [address], [place] [address] Jun, [facility] [address] [id number] [address] [place] [address], [place] [address] Jun, [facility] [address] [id number] [address] [place] [address], [place] [address] Jun, [facility] [address] [id number] [address] [place] [address], [place] [address] Jun, [facility] [address] [id number] [address] [place] [address], [place] [address] Jun, [facility] [address] [id number] [address] [place] [address], [place] [address] Jun, [facility] [address] [id number] [address] [place] [address], [place] [address] Jun, [facility] [address] [id number] [address] [place] [address], [place] [address] Jun, [facility] [address] [id number] [address] [place] [address], [place] [address] Jun, [facility] [address] [id number] [address] [place] [address], [place] [address] Jun, [facility] [address] [id number] [address] [place] [address], [place] [address] Jun, [facility] [address] [id number] [address] [place] [address], [place] [address] Jun, [facility] [address] [id number] [address] [place] [address], [place] [address] May, [facility] [address] [id number] [address] [place] [address], [place] [address] 16 May, 2013 [facility] [address] [id number] [address] [place] [address], [place] [address] 16 May, 2014 [facility] [address] [id number] [address] [place] [address] May, [facility] [address] [id number] [address] [place] [address], [place] [address] Apr, [facility] [address] [id number] [address] [place] [address], [place] [address] Apr, [facility] [address] [id number] [address] [place] [address], [place] [address] Apr, [facility] [address] [id number] [facility] [place] [address] Apr, [facility] [address] [id number] [address] [place] [address], [place] [address] Mar, [facility] [address] [id number] [address] [place] [address], [place] [address] Mar, [facility] [address] [id number] [address] [place] [address], [place] [address] Mar, [facility] [address] [id number] [address] [place] [address], [place] [address] Mar, [facility] [address] [id number] [address] [place] [address], [place] [address] Mar, [facility] [address] [id number] [address] [place] [address], [place] [address] Mar, [facility] [address] [id number] [address] [place] [address], [place] [address] Mar, [facility] [address] [id number] [address] [place] [address], [place] [address] Mar, [facility] [address] [id number] [address] [place] [address], [place] [address] Mar, [facility] [address] [id number] [address] [place] [address], [place] [address] Mar, [facility] [address] [id number] [address] [place] [address], [place] [address] Mar, [facility] [address] [id number] [address] [place] [address], [place] [address] Mar, [facility] [address] [id number] [address] [place] [address], [place] [address] Feb, [facility] [address] [id number] [address] [place] [address], [place] [address] Feb, [facility] [address] [id number] [address] [place] [address], [place] [address] Feb, [facility] [address] [id number] [facility] [place] [address] Feb, [facility] [address] [id number] [address] [place] [address], [place] [address] Feb, [facility] [address] [id number] [address] [place] [address], [place] [address] Feb, [facility] [address] [id number] [address] [place] [address], [place] [address] January, [facility] [address] [id number] [address] [place] [address], [place] [address] January, [facility] [address] [id number] [address] [place] [address], [place] [address] January, [facility] [address] [id number] [address] [place] [address], [place] [address] January, [facility] [address] [id number] [address] [place] [address], [place] [address] January, [facility] [address] [id number] [address] [place] [address], [place] [address] January, [facility] [address] [id number] [address] [place] [address], [place] [address] Nov, [facility] [address] [id number] [address] [place] [address], [place] [address] Nov, [facility] [address] [id number] [address] [place] [address], [place] [address] Nov, [facility] [address] [id number] [address] [place] [address], [place] [address] Nov, [facility] [address] [id number] [address] [place] [address], [place] [address] Oct, [facility] [address] [id number] [address] [place] [address], [place] [address] Oct, [facility] [address] [id number] [address] [place] [address], [place] [address] Sep, [facility] [address] [id number] [address] [place] [address], [place] [address] Sep, [facility] [address] [id number] [address] [place] [address], [place] [address] Sep, [facility] [address] [id number] [address] [place] [address], [place] [address] Sep, [facility] [address] [id number] [address] [place] [address], [place] [address] Sep, [facility] [address] [id number] [address] [place] [address], [place] [address] Aug, [facility] [address] [id number] [address] [place] [address], [place] [address] Aug, [facility] [address] [id number] [address] [place] [address], [place] [address] Jul, [facility] [address] [id number] [address] [place] [address], [place] [address] Jul, [facility] [address] [id number] [address] [place] [address], [place] [address] Jul, [facility] [address] [id number] [address] [place] [address], [place] [address] Jun, [facility] [address] [id number] [address] [place] [address], [place] [address] Jun, [facility] [address] [id number] [address] [place] [address], [place] [address] Jun, [facility] [address]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
--- NOTE | 2020-03-11 20:58 | Diagnostic Imaging Report ---
INDICATION: Chest pain EXAMINATION: Chest 03/11/2020 FINDINGS: Two views of the chest There is atelectasis at the left lung base laterally. Remaining lungs clear. No effusions, no pneumothorax. Heart and pulmonary vasculature normal. IMPRESSION: Minimal left base atelectasis, otherwise negative chest. Dictated by: Dictated on workstation # [id number]
--- OUTSIDE RECORDS SUMMARY | 2020-03-11 21:16 | XMS REPORT | Continuity of Care Document ---
Demographics Preferred Language Unknown Marital Status Unknown Jainism Affiliation Unknown Race Unknown Ethnic Group Unknown Author Organization Unknown Address Unknown Phone Unavailable Allergies Active Description Code Type Severity Reaction Onset Reported/Identified Relationship to Patient Clinical Status Yes IV CONTRAST SEVERE SEVERE Yes NO KNOWN DRUG ALLERGIES UNKNOWN NO [...] N/A 11/20/2014 Yes No Known Drug Allergies [id number] Drug Allergy Unknown N/A 11/24/2018 Yes No Known Drug Allergies [id number] Drug Allergy Unknown N/A 03/01/2019 Medications Medication [...] Diagnosed By 04/26/2008 784.0 headache 04/26/2008 RYNE MONTES DE OCAN, BRENNEN ZAMORANO 784.0 headache 04/26/2008 784.0 headache 04/26/2008 RYNE MONTES DE OCAN, BRENNEN ZAMORANO 784.0 headache 04/26/2008 RYNE MONTES DE OCAN, BRENNEN ZAMORANO 784.0 headache 04/26/2008 RYNE MONTES DE OCAN, BRENNEN ZAMORANO 784.0 headache 04/26/2008 VIRGEN DO, SHERRON K 784.0 headache 04/26/2008 MADVanessa E COMMERCE PROJECT MANAGER, RYAN L 784 .0 headache 04/26/2008 VIRGEN DO, SHERRON K 784.0 headache 04/26/2008 VIRGEN DO, SHERRON K 784.0 headache 04/26/2008 VIGREN DO, SHERRON K 784.0 headache 04/26/2008 VIRGEN DO, SHERRON K 784.0 headache 04/26/2008 VIRGEN DO, SHERRON K 784.0 headache 04/26/2008 VIRGEN DO, SHERRON K 784.0 headache 04/26/2008 VIRGEN DO, SHERRON K 784.0 headache 04/26/2008 VIRGEN DO, SHERRON K 784.0 headache 04/26/2008 VIRGEN DO, SHERRON K 784.0 headache 04/26/2008 VIRGEN DO, SHERRON K 784.0 headache 04/26/2008 BEVERLEY GEAR FINISHER, OLIVIA M 784.0 headache 04/26/2008 VIRGEN DO, SHERRON K 784.0 headache 04/26/2008 VIRGEN DO, SHERRON K 784.0 headache 04/26/2008 BEVERLEY GEAR FINISHER, OLIVIA M 784.0 headache 04/26/2008 VIRGEN DO, SHERRON K 784.0 headache 06/09/2008 266.2 B12 DEF W/O ANEMIA 06/09/2008 RYNE ROGERS BRENNEN ZAMORANO 266.2 B12 DEF W/O ANEMIA 06/09/2008 266.2 B12 DEF W/O ANEMIA 06/09/2008 RYNE ROGERS BRENNEN ZAMORANO 266.2 B12 DEF W/O ANEMIA 06/09/2008 RYNE ROGERS BRENNEN ZAMORANO 266.2 B12 DEF W/O ANEMIA 06/09/2008 RYNE MONTES DE OCAN, BRENNEN ZAMORANO 266.2 B12 DEF W/O ANEMIA [...] 536.8 Dysp epsia 07/04/2008 RYNE ROGERS BRENNEN ZAMORANO 285.9 ANEMIA 07/04/2008 RYNE ROGERS BRENNEN LEPEH 536.8 Dyspepsia 07/04/2008 285.9 ANEMIA 07/04/2008 536.8 Dysp epsia 07/04/2008 RYNE ROGERS BRENNEN JAUN 285.9 ANEMIA 07/04/2008 RYNE ROGERS BRENNEN JAUN 536.8 Dyspepsia 07/04/2008 RYNE ROGERS BRENNEN ZAMORANO 285.9 ANEMIA 07/04/2008 MICHELE E COMMERCE PROJECT MANAGER, BRENNEN JAUN 536.8 Dyspepsia 07/04/2008 MICHELE E COMMERCE PROJECT MANAGER, BRENNEN JAUN 285.9 ANEMIA 07/04/2008 MICHELE E COMMERCE PROJECT MANAGER, BRENNEN ZAMORANO 536.8 Dyspepsia 07/04/2008 VIRGEN DO, SHERRON K 285.9 ANEMIA 07/04/2008 VIRGEN DO, SHERRON K 536.8 Dyspepsia 07/04/2008 MADL E COMMERCE PROJECT MANAGER, RYAN L 285 .9 ANEMIA 07/04/2008 MADL E COMMERCE PROJECT MANAGER, RYAN L 536 .8 Dyspepsia 07/04/2008 VIRGEN [...] DO, SHERRON K 536.8 Dyspepsia 07/04/2008 BEVERLEY GEAR FINISHER, OLIVIA M 285.9 ANEMIA 07/04/2008 BEVERLEY GEAR FINISHER, OLIVIA M 536.8 Dyspepsia 07/04/2008 VIRGEN DO, SHERRON K 285.9 ANEMIA 07/04/2008 VIRGEN DO, SHERRON K 536.8 Dyspepsia 09/04/2008 528.9 Mout h Pain 09/04/2008 MICHELE E COMMERCE PROJECT MANAGER, BRENNEN LEPEH 528.9 Mouth Pain 09/04/2008 528.9 Mout h Pain 09/04/2008 MICHELE E COMMERCE PROJECT MANAGER, BRENNEN JAUN 528.9 Mouth Pain 09/04/2008 MICHELE E COMMERCE PROJECT MANAGER, BRENNEN JAUN 528.9 Mouth Pain 09/04/2008 MICHELE E COMMERCE PROJECT MANAGER, BRENNEN JAUN 528.9 Mouth Pain 09/04/2008 VIRGEN DO, SHERRON K 528.9 Mouth Pain 09/04/2008 MADL E COMMERCE PROJECT MANAGER, RYAN L 528 .9 Mouth Pain 09/04/2008 [...] DO, SHERRON K 528.9 Mouth Pain 09/04/2008 BEVERLEY GEAR FINISHER, OLIVIA M 528.9 Mouth Pain 09/04/2008 VIRGEN DO, SHERRON K 528.9 Mouth Pain 09/04/2008 VIRGEN DO, SHERRON K 528.9 Mouth Pain 09/04/2008 OLIVIA AUGUSTINE 528.9 Mouth Pain 09/04/2008 VIRGEN DO, SHERRON K 528.9 Mouth Pain 01/23/2009 302.72 MAL E ERECTILE DISORDER 01/23/2009 780.79 fee ling tired or poorly 01/23/2009 IMCHELE E COMMERCE PROJECT MANAGER, BRENNEN ZAMORANO 302.72 MALE ERECTILE DISORDER 01/23/2009 MICHELE E COMMERCE PROJECT MANAGER, BRENNEN ZAMORANO 780.79 feeling tired or poorly 01/23/2009 302.72 MAL E ERECTILE DISORDER 01/23/2009 780.79 fee ling tired or poorly 01/23/2009 MICHELE E COMMERCE PROJECT MANAGER, BRENNEN ZAMORANO 302.72 MALE ERECTILE DISORDER 01/23/2009 MICHELE E COMMERCE PROJECT MANAGER, BRENNEN ZAMORANO 780.79 feeling tired or poorly 01/23/2009 MICHELE E COMMERCE PROJECT MANAGER, BRENNEN AZMORANO 302.72 MALE ERECTILE DISORDER 01/23/2009 MICHELE E COMMERCE PROJECT MANAGER, BRENNEN ZAMORANO 780.79 feeling tired or poorly 01/23/2009 MICHELE E COMMERCE PROJECT MANAGER, BRENNEN ZAMORANO 302.72 MALE ERECTILE DISORDER 01/23/2009 MICHELE E COMMERCE PROJECT MANAGER, BRENNEN ZAMORANO 780.79 feeling tired or poorly 01/23/2009 VIRGEN DO, SHERRON K 302.72 MALE ERECTILE DISORDER 01/23/2009 VIRGEN DO, SHERRON K 780.79 feeling tired or poorly 01/23/2009 MADL E COMMERCE PROJECT MANAGER, RYAN L 302 .72 MALE ERECTILE DISORDER 01/23/2009 MADL E COMMERCE PROJECT MANAGER, RYAN L 780 .79 feeling tired or [...] 03/06/2009 789.00 Abd ominal Pain 03/06/2009 MICHELE BRENNEN ROGERS 789.00 Abdominal Pain 03/06/2009 789.00 Abd ominal Pain 03/06/2009 MICHELE E COMMERCE PROJECT MANAGER, BRENNEN ZAMORANO 789.00 Abdominal Pain 03/06/2009 MICHELE BRENNEN ROGERS 789.00 Abdominal Pain 03/06/2009 MICHELE SUE, BRENNEN ZAMORANO 789.00 Abdominal Pain 03/06/2009 VIRGEN DO, SHERRON [...] OMNIA 06/13/2009 V04.81 FLU SHOT 06/13/2009 MICHELE SUE BRENNEN ZAMORANO 307.40 INSOMNIA 06/13/2009 MICHELE E COMMERCE PROJECT MANAGER, BRENNEN ZAMORANO V04.81 FLU SHOT 06/13/2009 307.40 INS OMNIA 06/13/2009 V04.81 FLU SHOT 06/13/2009 MICHELE E COMMERCE PROJECT MANAGER, BRENNEN ZAMORANO 307.40 INSOMNIA 06/13/2009 MICHELE E COMMERCE PROJECT MANAGER, BRENNEN ZAMORANO V04.81 FLU SHOT 06/13/2009 MICHELE E COMMERCE PROJECT MANAGER, BRENNEN ZAMORANO 307.40 INSOMNIA 06/13/2009 MICHELE E COMMERCE PROJECT MANAGER, BRENNEN ZAMORANO V04.81 FLU SHOT 06/13/2009 MICHELE E COMMERCE PROJECT MANAGER, BRENNEN ZAMORANO 307.40 INSOMNIA 06/13/2009 MICHELE E COMMERCE PROJECT MANAGER, BRENNEN ZAMORANO V04.81 FLU SHOT 06/13/2009 VIRGEN DO, SHERRON K 307.40 INSOMNIA 06/13/2009 VIRGEN DO, SHERRON K V04.81 FLU SHOT 06/13/2009 MADL E COMMERCE PROJECT MANAGER, RYAN L 307 .40 INSOMNIA 06/13/2009 MADL E COMMERCE PROJECT MANAGER, RYAN L V04 .81 FLU SHOT 06/13/2009 [...] Spra in Back 09/11/2009 RYNE ROGERS, BRENNEN ZAMORANO 728.85 Muscle Spasm 09/11/2009 MICHELEESCOBAR MONTES DE OCAN, BRENNEN ZAMORANO 847.9 Sprain Back 09/11/2009 728.85 Mus jose Spasm 09/11/2009 847.9 Spra in Back 09/11/2009 MICHELE E COMMERCE PROJECT MANAGER, BRENNEN LEPEH 728.85 Muscle Spasm 09/11/2009 MICHELE E COMMERCE PROJECT MANAGER, BRENNEN ZAMORANO 847.9 Sprain Back 09/11/2009 MICHELE E COMMERCE PROJECT MANAGER, BRENNEN LEPEH 728.85 Muscle Spasm 09/11/2009 MICHELE E COMMERCE PROJECT MANAGER, BRENNEN ZAMORANO 847.9 Sprain Back 09/11/2009 MICHELE E COMMERCE PROJECT MANAGER, BRENNEN ZAMORANO 728.85 Muscle Spasm 09/11/2009 MICHELE E COMMERCE PROJECT MANAGER, BRENNEN ZAMORANO 847.9 Sprain Back 09/11/2009 VIRGEN DO, SHERRON K 728.85 Muscle Spasm 09/11/2009 VIRGEN DO, SHERRON K 847.9 Sprain Back 09/11/2009 MADL E COMMERCE PROJECT MANAGER, RYAN L 728 .85 Muscle Spasm 09/11/2009 MADL E COMMERCE PROJECT MANAGER, RYAN L 847 .9 Sprain Back 09/11/2009 [...] SHERRON K 847.9 Sprain Back 09/11/2009 BEVERLEY DIAZ, OLIVIA M 728.85 Muscle Spasm 09/11/2009 BEVERLEY DIAZ, OLIVIA M 847.9 Sprain Back 09/11/2009 VIRGEN DO, SHERRON K 728.85 Muscle Spasm 09/11/2009 VIRGEN DO, SHERRON K 847.9 Sprain Back 09/11/2009 VIRGEN DO, SHERRON K 728.85 Muscle Spasm 09/11/2009 VIRGEN DO, SHERRON K 847.9 Sprain Back 09/11/2009 BEVERLEY DIAZ, OLIVIA M 728.85 Muscle Spasm 09/11/2009 BEVERLEY DIAZ, OLIVIA M 847.9 Sprain Back 09/11/2009 VIRGEN DO, SHERRON K 728.85 Muscle Spasm 09/11/2009 VIRGEN DO, SHERRON K 847.9 Sprain Back 10/23/2009 NODX No Di agnosis 10/23/2009 MICHELE E COMMERCE PROJECT MANAGERBRENNEN NODX No Diagnosis 10/23/2009 NODX No Di agnosis 10/23/2009 MICHELE E COMMERCE PROJECT MANAGERBRENNEN NODX No Diagnosis 10/23/2009 MICHELE E COMMERCE PROJECT MANAGERBRENNEN NODX No Diagnosis 10/23/2009 MICHELE E COMMERCE PROJECT MANAGERBRENNEN NODX No Diagnosis 10/23/2009 VIRGEN DO, SHERRON K NODX No Diagnosis 10/23/2009 RAFAEL E COMMERCE PROJECT MANAGER, RYAN Mendez NOD X No Diagnosis 10/23/2009 VIRGEN DO, [...] SHERRON K NODX No Diagnosis 10/23/2009 BEVERLEY GEAR FINISHER, OLIVIA M N ODX No Diagnosis 10/23/2009 VIRGEN DO, SHERRON K NODX No Diagnosis 10/23/2009 VIRGEN DO, SHERRON K NODX No Diagnosis 10/23/2009 BEVERLEY GEAR FINISHER, OLIVIA M N ODX No Diagnosis 10/23/2009 VIRGEN DO, SHERRON K NODX No Diagnosis 11/06/2009 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 11/06/2009 BRENNEN MICHELE APRN 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00 ANXIETY UNSPEC 02/19/2010 OLIVIA AUGUSTINE 300.00 ANXIETY UNSPEC 02/19/2010 VIRGEN DO, SHERRON K 300.00 ANXIETY UNSPEC 02/19/2010 VIRGEN DO, SHERRON K 300.00 ANXIETY UNSPEC 02/19/2010 BEVERLEY DIAZ, OLIVIA M 300.00 ANXIETY UNSPEC 02/19/2010 VIRGEN DO, SHERRON K 300.00 ANXIETY UNSPEC 05/09/2010 719.40 JOLIE N IN JOINT, SITE UNSPECIFIED 05/09/2010 MICHELE E COMMERCE PROJECT MANAGER, BRENNEN ZAMORANO 719.40 PAIN IN JOINT, SITE UNSPECIFIED 05/09/2010 719.40 JOLIE N IN JOINT, SITE UNSPECIFIED 05/09/2010 MICHELE E COMMERCE PROJECT MANAGER, BRENNEN ZAMORANO 719.40 PAIN IN JOINT, SITE UNSPECIFIED 05/09/2010 MICHELE E COMMERCE PROJECT MANAGER, BRENNEN ZAMORANO 719.40 PAIN IN JOINT, SITE UNSPECIFIED 05/09/2010 MICHELE E COMMERCE PROJECT MANAGER, BRENNEN ZAMORANO 719.40 PAIN IN JOINT, SITE UNSPECIFIED 05/09/2010 VIRGEN DO, SHERRON K 719.40 PAIN IN JOINT, SITE UNSPECIFIED 05/09/2010 RYAN HALL APRN 719 .40 PAIN IN JOINT, SITE UNSPECIFIED [...] 719.40 PAIN IN JOINT, SITE UNSPECIFIED 05/09/2010 IVRGEN DO, SHERRON K 719.40 PAIN IN JOINT, SITE UNSPECIFIED 05/09/2010 BEVERLEY GEAR FINISHER, OLIVIA M 719.40 PAIN IN JOINT, SITE UNSPECIFIED 05/09/2010 VIRGEN DO, SHERRON K 719.40 PAIN IN JOINT, SITE UNSPECIFIED 06/13/2010 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 06/13/2010 MICHELE E COMMERCE PROJECT MANAGER, BRENNEN JAUN 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 06/13/2010 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 06/13/2010 MICHELE E COMMERCE PROJECT MANAGER, BRENNEN ZAMORANO 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 06/13/2010 MICHELE E COMMERCE PROJECT MANAGER, BRENNEN ZAMORANO 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 06/13/2010 MICHELE E COMMERCE PROJECT MANAGER, BRENNEN ZAMORANO 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 06/13/2010 VIRGEN DO, SHERRON K 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 06/13/2010 RAFAEL ROGERS RYAN L 239 .1 NEOPLASMS OF UNSPECIFIED [...] OF UNSPECIFIED NATURE OF RESPIRATORY SYSTEM 06/13/2010 BEVERLEY DIAZ, OLIVIA M 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 06/13/2010 VIRGEN DO, SHERRON K 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 06/13/2010 SHERRON VIRGEN DO 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 06/13/2010 BEVERLEY DIAZ, OLIVIA Tang 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 06/13/2010 SHERRON VIRGEN DO K 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 07/22/2010 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 07/22/2010 300.02 AN GEN ANXIETY 07/22/2010 301.9 PD P ERS DIS NOS 07/22/2010 309.81 AN PTSD 07/22/2010 MICHELE SUE BRENNEN ZAMORANO 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 07/22/2010 MICHELE E COMMERCE PROJECT MANAGER, BRENNEN JAUN 300.02 AN GEN ANXIETY 07/22/2010 MICHELE E COMMERCE PROJECT MANAGER, BRENNNE JAUN 301.9 PD PERS DIS NOS 07/22/2010 MICHELE SUE BRENNEN JAUN 309.81 AN PTSD 07/22/2010 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 07/22/2010 300.02 AN GEN ANXIETY 07/22/2010 301.9 PD P ERS DIS NOS 07/22/2010 309.81 AN PTSD 07/22/2010 MICHELE E COMMERCE PROJECT MANAGER, BRENNEN ZAMORANO 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 07/22/2010 MICHELE E COMMERCE PROJECT MANAGER, BRENNEN JAUN 300.02 AN GEN ANXIETY 07/22/2010 MICHELE SUE BRENNEN JAUN 301.9 PD PERS DIS NOS 07/22/2010 MICHELE SUE BRENNEN JAUN 309.81 AN PTSD 07/22/2010 MICHELE E COMMERCE PROJECT MANAGER, BRENNEN JAUN 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 07/22/2010 MICHELE E COMMERCE PROJECT MANAGER, BRENNEN JAUN 300.02 AN GEN ANXIETY 07/22/2010 MICHELE E COMMERCE PROJECT MANAGER, BRENNEN JAUN 301.9 PD PERS DIS NOS 07/22/2010 MICHELE E COMMERCE PROJECT MANAGER, BRENNEN JAUN 309.81 AN PTSD 07/22/2010 MICHELE SUE BRENNEN JAUN 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 07/22/2010 MICHELE SUE BRENNEN JAUN 300.02 AN GEN ANXIETY 07/22/2010 MICHELE E COMMERCE PROJECT MANAGER, BRENNEN JAUN 301.9 PD PERS DIS NOS 07/22/2010 BRENNEN MICHELE APRN 309.81 AN PTSD 07/22/2010 VIRGEN DO, SHERRON K 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 07/22/2010 VIRGEN DO, SHERRON K 300.02 AN GEN ANXIETY 07/22/2010 VIRGEN DO, SHERRON K 301.9 PD PERS DIS NOS 07/22/2010 VIRGEN DO, SHERRON K 309.81 AN PTSD 07/22/2010 MADL E COMMERCE PROJECT MANAGER, RYAN L 295 .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 07/22/2010 MADL E COMMERCE PROJECT MANAGER, RYAN L 300 .02 AN GEN ANXIETY 07/22/2010 MADL E COMMERCE PROJECT MANAGER, RYAN L 301 .9 PD PERS DIS NOS 07/22/2010 MADL E COMMERCE PROJECT MANAGER, RYAN L 309 .81 AN PTSD 07/22/2010 [...] 300.02 AN GEN ANXIETY 07/22/2010 VIRGEN DO, SHERRNO K 301.9 PD PERS DIS NOS 07/22/2010 VIRGEN DO, SHERRON K 309.81 AN PTSD 07/22/2010 VIRGEN DO, SHERRON K 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 07/22/2010 VIRGEN DO, SHERRON K 300.02 AN GEN ANXIETY 07/22/2010 VIRGEN DO, SHERRON K 301.9 PD PERS DIS NOS 07/22/2010 VIRGEN DO, SHERRON K 309.81 AN PTSD 07/22/2010 BEVERLEY GEAR FINISHEROLIVIA M 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 07/22/2010 BEVERLEY GEAR FINISHER, OLIVIA M 300.02 AN GEN ANXIETY 07/22/2010 BEVERLEY GEAR FINISHER, OLIVIA M 301.9 PD PERS DIS NOS 07/22/2010 BEVERLEY GEAR FINISHER, OLIVIA M 309.81 AN PTSD 07/22/2010 VIRGEN [...] DO, SHERRON K 309.81 AN PTSD 07/22/2010 BEVRELEY GEAR FINISHER, OLIVIA M 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 07/22/2010 BEVERLEY GEAR FINISHER, OLIVIA M 300.02 AN GEN ANXIETY 07/22/2010 BEVERLEY GEAR FINISHER, OLIVIA M 301.9 PD PERS DIS NOS 07/22/2010 BEVERLEY GEAR FINISHER, OLIVIA M 309.81 AN PTSD 07/22/2010 VIRGEN [...] .1 Irritable Bowel Syndrome 08/08/2010 VIRGEN DO, SHERRON [...] Colon (without Hemorrhage) 12/17/2010 RYNE ROGERS BRENNEN JAUN 709.9 Unspecified Disorder Of Skin And Subcutaneous [...] Of Skin And Subcutaneous Tissue 12/17/2010 MADL E COMMERCE PROJECT MANAGER, RYAN L 562 .10 Diverticulosis Of Colon (without Hemorrhage) 12/17/2010 MADL E COMMERCE PROJECT MANAGER, RYAN L 709 .9 Unspecified Disorder Of [...] Diverticulosis Of Colon (without Hemorrhage) 12/17/2010 SHERRON VRIGEN DO 709.9 Unspecified Disorder Of Skin And [...] And Abscess Of Unspecified Sites 02/23/2011 MICHELE E COMMERCE PROJECT MANAGER, BRENNEN ZAMORANO 452 Portal Vein Thrombosis 02/23/2011 MICHELE E COMMERCE PROJECT MANAGER, BRENNEN ZAMORANO 682.9 Cellulitis And Abscess Of Unspecified Sites 02/23/2011 452 Portal Vein Thrombosis 02/23/2011 682.9 Cell ulitis And Abscess Of Unspecified Sites 02/23/2011 MICHELE E COMMERCE PROJECT MANAGER, BRENNEN ZAMORANO 452 Portal Vein Thrombosis 02/23/2011 MICHELE E COMMERCE PROJECT MANAGER, BRENNEN ZAMORANO 682.9 Cellulitis And Abscess Of Unspecified Sites 02/23/2011 MICHELE E COMMERCE PROJECT MANAGER, BRENNEN ZAMORANO 452 Portal Vein Thrombosis 02/23/2011 MICHELE E COMMERCE PROJECT MANAGER, BRENNEN ZAMORANO 682.9 Cellulitis And Abscess Of Unspecified Sites 02/23/2011 MICHELE E COMMERCE PROJECT MANAGER, BRENNEN ZAMORANO 45Joseph Portal Vein Thrombosis 02/23/2011 MICHELE E COMMERCE PROJECT MANAGER, BRENNEN ZAMORANO 682.9 Cellulitis And Abscess Of Unspecified Sites 02/23/2011 VIRGEN DO, SHERRON K 452 Portal Vein Thrombosis 02/23/2011 VIRGEN DO, SHERRON K 682.9 Cellulitis And Abscess Of Unspecified Sites 02/23/2011 MADL E COMMERCE PROJECT MANAGER, RYAN L 452 Portal Vein Thrombosis 02/23/2011 MADL E COMMERCE PROJECT MANAGER, RYAN L 682 .9 Cellulitis And Abscess [...] 452 Portal Vein Thrombosis 02/23/2011 VIRGEN DO, HSERRON K 682.9 Cellulitis And Abscess Of Unspecified [...] 52 Portal Vein Thrombosis 02/23/2011 OLIVIA AUGUSTINE 682.9 Cellulitis And Abscess Of Unspecified Sites 02/23/2011 VIRGEN DO, SHERRON K 452 Portal Vein Thrombosis 02/23/2011 VIRGEN DO, SHERRON K 682.9 Cellulitis And Abscess Of Unspecified Sites 02/23/2011 VIRGEN DO, SHERRON K 452 Portal Vein Thrombosis 02/23/2011 VIRGEN DO, SHERRON K 682.9 Cellulitis And Abscess Of Unspecified Sites 02/23/2011 OLIVIA AUGUSTINE M 4 52 Portal Vein Thrombosis 02/23/2011 OLIVIA AUGUSTINE 682.9 Cellulitis And Abscess Of Unspecified Sites [...] Removal Of Nonsurgical Wound Dressing 02/24/2011 MICHELE E COMMERCE PROJECT MANAGER, BRENNEN ZAMORANO 780.50 SLEEP DISTURBANCE, UNSPECIFIED 02/24/2011 MICHELE E COMMERCE PROJECT MANAGER, BRENNEN ZAMORANO V58.30 Encounter For Change Or Removal Of Nonsurgical Wound D ressing 02/24/2011 MICHELE E COMMERCE PROJECT MANAGER, BRENNEN ZAMORANO 780.50 SLEEP DISTURBANCE, UNSPECIFIED 02/24/2011 MICHELE E COMMERCE PROJECT MANAGER, BRENNEN ZAMORANO V58.30 Encounter For Change Or Removal Of Nonsurgical Wound D ressing 02/24/2011 MICHELE E COMMERCE PROJECT MANAGER, BRENNEN ZAMORANO 780.50 SLEEP DISTURBANCE, UNSPECIFIED 02/24/2011 MICHELE E COMMERCE PROJECT MANAGER, BRENNEN ZAMORANO V58.30 Encounter For Change Or Removal Of Nonsurgical Wound D ressing 02/24/2011 VIRGEN DO, SHERRON K 780.50 SLEEP DISTURBANCE, UNSPECIFIED 02/24/2011 VIRGEN DO, SHERRON K V58.30 Encounter For Change Or Removal Of Nonsurgical Wound Dressing 02/24/2011 MADL E COMMERCE PROJECT MANAGER, RYAN L 780 .50 SLEEP DISTURBANCE, UNSPECIFIED 02/24/2011 MADL E COMMERCE PROJECT MANAGER, RYAN L V58 .30 Encounter For Change [...] Removal Of Nonsurgical Wound Dressing 02/24/2011 BEVERLEY GEAR FINISHEROLIVIA M 780.50 SLEEP DISTURBANCE, UNSPECIFIED 02/24/2011 OLIVIA [...] RESISTANT STAPHYLOCOCCUS AUR 03/24/2011 Ot 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 03/24/2011 Ot 530.81 ESO PHAGEAL REFLUX 03/24/2011 Ot 564.00 UNS PEC CONSTIPATION 03/24/2011 Ot 682.2 CELL ULITIS OF TRUNK 03/24/2011 Ot V12.51 HX- VENOUS THROMBOSIS EMBOLISM 03/24/2011 Ot V12.79 PER MATHEW HISTORY OTH SPEC DIGESTIVE SYST 03/24/[address] ABSENCE INTESTINE - LARGE/SMALL 03/24/[address] ABSENCE OF OTH ORGAN 03/24/2011 Ot V58.61 ANTICOAGULANTS,LT,CURRENT USE 03/25/2011 V58.69 MED ICATION HIGH RISK 03/25/2011 RYNE ROGERS, BRENNEN ZAMORANO V58.69 MEDICATION HIGH RISK 03/25/2011 V58.69 MED ICATION HIGH RISK 03/25/2011 MICHELE E COMMERCE PROJECT MANAGER, BRENNEN ZAMORANO V58.69 MEDICATION HIGH RISK 03/25/2011 MICHELE E COMMERCE PROJECT MANAGER, BRENNEN ZAMORANO V58.69 MEDICATION HIGH RISK 03/25/2011 MICHELE E COMMERCE PROJECT MANAGER, BRENNEN ZAMORANO V58.69 MEDICATION HIGH RISK 03/25/2011 VIRGEN DO, SHERRON K V58.69 MEDICATION HIGH RISK 03/25/2011 RYAN HALL APRN L V58 .69 MEDICATION HIGH RISK 03/25/2011 [...] OF METHICILLIN RESISTANT STAPHYLOCOCCUS AUREUS 03/26/2011 MICHELE BRENNEN ROGERS V12.04 PERSONAL HISTORY OF METHICILLIN RESISTANT STAPHYLOCOCC US AUREUS 03/26/2011 BRENNEN MICHELE APRN V12.04 PERSONAL HISTORY OF METHICILLIN RESISTANT STAPHYLOCOCC US AUREUS 03/26/2011 BRENNEN MICHELE APRN V12.04 PERSONAL HISTORY OF METHICILLIN RESISTANT STAPHYLOCOCC US AUREUS 03/26/2011 VIRGEN DO, SHERRON K 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 03/26/2011 LAURARYAN Mendez APRN Vanessa V12 .04 PERSONAL HISTORY OF METHICILLIN RESISTANT [...] HISTORY OF METHICILLIN RESISTANT STAPHYLOCOCCUS AUREUS 03/26/2011 VIRGNE DO, SHERRON K V12.04 PERSONAL HISTORY OF [...] 298.9 P PS YCHOSIS NOS 09/30/2011 MICHELE E COMMERCE PROJECT MANAGER, BRENNEN JAUN 298.9 P PSYCHOSIS NOS 09/30/2011 298.9 P PS YCHOSIS NOS 09/30/2011 MICHELE E COMMERCE PROJECT MANAGER, BRENNEN JAUN 298.9 P PSYCHOSIS NOS 09/30/2011 MICHELE E COMMERCE PROJECT MANAGER, BRENNEN JAUN 298.9 P PSYCHOSIS NOS 09/30/2011 MICHELE E COMMERCE PROJECT MANAGER, BRENNEN JAUN 298.9 P PSYCHOSIS NOS 09/30/2011 VIRGEN DO, SHERRON K 298.9 P PSYCHOSIS NOS 09/30/2011 MADL E COMMERCE PROJECT MANAGER, RYAN L 298 .9 P PSYCHOSIS NOS 09/30/2011 [...] K 298.9 P PSYCHOSIS NOS 09/30/2011 BEVERLEY GEAR FINISHER, OLIVIA M 298.9 P PSYCHOSIS NOS 09/30/2011 VIRGEN DO, SHERRON K 298.9 P PSYCHOSIS NOS 09/30/2011 VIRGEN DO, SHERRON K 298.9 P PSYCHOSIS NOS 09/30/2011 BEVERLEY GEAR FINISHER, OLIVIA M 298.9 P PSYCHOSIS NOS 09/30/2011 VIRGEN DO, SHERRON K 298.9 P PSYCHOSIS NOS 10/04/2013 RYNE ROGERS, BRENNEN ZAMORANO 346.90 MIGRAINE HEADACHE 10/04/2013 MICHELE E COMMERCE PROJECT MANAGER, BRENNEN ZAMORANO 346.90 MIGRAINE HEADACHE 10/04/2013 VIRGEN DO, SHERRON K 346.90 MIGRAINE HEADACHE 10/04/2013 MADL E COMMERCE PROJECT MANAGER, RYAN L 346 .90 MIGRAINE HEADACHE 10/04/2013 [...] SHERRON K 346.90 MIGRAINE HEADACHE 10/04/2013 BEVERLEY DIAZ, OLIVIA M 346.90 MIGRAINE HEADACHE 10/04/2013 VIRGEN DO, SHERRON K 346.90 MIGRAINE HEADACHE 02/13/2014 VIRGEN DO, SHERRON K 338.29 OTHER CHRONIC PAIN 02/13/2014 RAFAEL E COMMERCE PROJECT MANAGER, RYAN L 338 .29 OTHER CHRONIC PAIN [...] SHERRON K 338.29 OTHER CHRONIC PAIN 02/19/2014 LAURAVanessa E COMMERCE PROJECT MANAGER, RYAN L 796 .9 OTHER NONSPECIFIC ABNORMAL [...] OTHER NONSPECIFIC ABNORMAL FINDINGS 02/19/2014 VIRGEN DO, HSERRON K 796.9 OTHER NONSPECIFIC ABNORMAL FINDINGS 02/19/2014 [...] PAIN IN LIMB 08/22/2014 OLIVIA AUGUSTINE M 3 11 MO DEPRESS NOS 08/22/2014 YOCASTA VIRGEN DOA K 311 MO DEPRESS NOS 08/22/2014 YOCASTA VIRGEN DOA K 311 MO DEPRESS NOS 08/22/2014 OLIVIA AUGUSTINE M 3 11 MO DEPRESS NOS 08/22/2014 YOCASTA VIRGEN DOA K 311 MO DEPRESS NOS 11/05/2014 OLIVIA AUGUSTINE Ktity 296.32 MO DEPRESSIVE RECURRENT MODERATE 11/05/2014 SHERRON [...] MD Ot 414. 01 CORONARY ATHEROSCLEROSIS OF [place] CORON 02/18/2015 GILES CHRISTIANSON MD Ot 424. 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 1 MELENA 06/28/2017 TERESA MENESES MD Ot R10. 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 06/29/2017 SAJAN CRUZ MD, Ot F41.9 ANXIETY DISORDER, UNSPECIFIED 06/29/2017 SAJAN CURZ MD Ot K21.9 GASTRO-ESOPHAGEAL REFLUX DISEASE WITHOUT 06/29/2017 SAJAN RCUZ MD, Ot K57.90 DVRTCLOS OF INTEST, PART UNSP, W/O PERF 06/29/2017 SAJAN CRUZ MD, Ot K62.5 HEMORRHAGE OF ANUS AND RECTUM 06/29/2017 SAJAN CRUZ MD, Ot M47.9 SPONDYLOSIS, UNSPECIFIED 06/29/2017 SAJAN CRUZ MD, Ot R10.32 LEFT LOWER QUADRANT PAIN 06/29/2017 SAJAN CRUZ MD, Ot Z79.82 SENIOR CARE (CURRENT) USE OF ASPIRIN 06/29/2017 SAJAN CRUZ [...] PAIN 06/29/2017 SAJAN CRUZ MD, Ot Z79.82 WALLPAPER CONSULTANT (CURRENT) USE OF ASPIRIN 06/29/2017 SAJAN CRUZ MD, Ot Z90.49 ACQUIRED ABSENCE OF OTHER SPECIFIED PART 06/30/2017 TERESA MENESES MD Ot K92. 1 MELENA 06/30/2017 TERESA MENESES MD Ot R10. 9 UNSPECIFIED ABDOMINAL PAIN 06/30/2017 ZAIRA DRAPER TERESA J Ot K92. 1 MELENA 06/30/2017 KASANDRA MENESES MDUS Afua Ot R10. 9 UNSPECIFIED ABDOMINAL PAIN 07/12/2017 IMMANUEL FRANCO MD Ot R10.9 UNSPECIFIED ABDOMINAL PAIN 07/12/2017 IMMANUEL FRANCO MD Ot Z01.81 8 ENCOUNTER FOR OTHER PREPROCEDURAL EXAMIN 07/12/2017 IMMANUEL FRANCO MD Ot Z87.19 PERSONAL HISTORY OF OTHER DISEASES OF TH 07/12/2017 IMMANUEL FRANCO MD Ot R10.9 UNSPECIFIED ABDOMINAL PAIN 07/12/2017 IMMANUEL FRANCO MD Ot Z01.81 8 ENCOUNTER FOR OTHER PREPROCEDURAL EXAMIN 07/12/2017 IMMANUEL FRANCO MD Ot Z87.19 PERSONAL HISTORY OF OTHER DISEASES OF TH 07/14/2017 IMMANUEL FRANCO MD Ot F32.9 MAJOR [...] 07/14/2017 IMMANUEL FRANCO MD, Ot Z79.82 SENIOR CARE (CURRENT) USE OF ASPIRIN 07/14/2017 IMMANUEL FRANCO MD, Ot Z79.89 9 OTHER WALLPAPER CONSULTANT (CURRENT) DRUG THERAPY 07/14/2017 IMMANUEL FRANCO MD, [...] DO Ot I25.10 ATHSCL HEART DISEASE OF [place] CORONARY 08/23/2017 JUAN MANUEL EVANS DO Ot [...] DO Ot F41.9 ANXIETY DISORDER, UNSPECIFIED 08/24/2017 JAMILA EVANS DOI Ot I25.10 ATHSCL HEART DISEASE OF [place] CORONARY 08/24/2017 JAMILA EVANS DOI Ot I26.99 [...] EVANS DOI Ot Z98.1 ARTHRODESIS STATUS 08/24/2017 JUAN MANUEL EVANS DO Ot B18.2 CHRONIC VIRAL HEPATITIS C 08/24/2017 JUAN MANUEL EVANS DO Ot F32.9 MAJOR DEPRESSIVE DISORDER, SINGLE EPISOD 08/24/2017 JUAN MANUEL EVANS DO Ot F41.9 ANXIETY DISORDER, UNSPECIFIED 08/24/2017 JAMILA EVANS DOI Ot I25.10 ATHSCL HEART DISEASE OF [place] CORONARY 08/24/2017 JAMILA EVANS DOI Ot I26.99 OTHER PULMONARY EMBOLISM WITHOUT ACUTE C 08/24/2017 JAMILA EVANS DOI Ot I48.0 PAROXYSMAL ATRIAL FIBRILLATION 08/24/2017 JUAN [...] 1 PERSONAL HISTORY OF NICOTINE DEPENDENCE 08/24/2017 JAMILA EVANS DOI Ot Z90.81 ACQUIRED ABSENCE OF SPLEEN 08/24/2017 JUAN MANUEL EVANS DO Ot Z98.1 ARTHRODESIS STATUS 09/01/2017 MAHI PANIAGUA DO Ot F41.9 ANXIETY DISORDER, UNSPECIFIED 09/01/2017 SIVA DO MAHI K Ot G43.909 MIGRAINE, UNSP, NOT INTRACTABLE, WITHOUT 09/01/2017 SIVA DO MAHI K Ot I26.99 OTHER PULMONARY EMBOLISM WITHOUT ACUTE C 09/01/2017 SIVA DO MAHI K Ot I48.91 UNSPECIFIED ATRIAL FIBRILLATION 09/01/2017 SIVA DO MAHI K Ot K21.9 GASTRO-ESOPHAGEAL REFLUX DISEASE WITHOUT 09/01/2017 SIVA DO MAHI K Ot M47.9 SPONDYLOSIS, UNSPECIFIED 09/01/2017 SIVA DO MAHI K Ot M79.604 PAIN IN RIGHT LEG 09/01/2017 SIVA DO MAHI K Ot R25.2 CRAMP AND SPASM 09/01/2017 SIVA DO MHAI K Ot Z79.01 SENIOR CARE (CURRENT) USE OF ANTICOAGULANT 09/01/[facility] WALLPAPER CONSULTANT (CURRENT) USE OF ASPIRIN 09/01/2017 SIVA ANILA MELCHORA K Ot Z86.14 PERSONAL HISTORY OF METHICILLIN RESIS ST 09/01/2017 SIVA MELCHOR MAHI K Ot Z86.718 PERSONAL HISTORY OF OTHER VENOUS THROMBO 09/01/2017 SIVA ANILAA Syeda Ot Z87.891 PERSONAL HISTORY OF NICOTINE DEPENDENCE 09/08/2017 SIVA MELCHOR MAHI Syeda Ot F41.9 ANXIETY DISORDER, UNSPECIFIED 09/08/2017 SIVA DO MAHI K Ot G43.909 MIGRAINE, UNSP, NOT INTRACTABLE, WITHOUT 09/08/2017 SIVA DO MAHI K Ot I26.99 OTHER PULMONARY EMBOLISM WITHOUT ACUTE C 09/08/2017 SIVA DO MAHI K Ot I48.91 UNSPECIFIED ATRIAL FIBRILLATION 09/08/2017 SIVA DO MAHI K Ot K21.9 GASTRO-ESOPHAGEAL REFLUX DISEASE WITHOUT 09/08/2017 SIVA DO MAHI K Ot M47.9 SPONDYLOSIS, UNSPECIFIED 09/08/2017 SIVA DO MAHI K Ot M79.604 PAIN IN RIGHT LEG 09/08/2017 SIVA DO MAHI K Ot R25.2 CRAMP AND SPASM 09/08/2017 SIVA DOANILAA K Ot Z79.01 WALLPAPER CONSULTANT (CURRENT) USE OF ANTICOAGULANT 09/08/2017 MAHI PANIAGUA DO Ot Z79.82 SENIOR CARE (CURRENT) USE OF ASPIRIN 09/08/2017 MAHI PANIAGUA DO Ot Z86.14 PERSONAL HISTORY OF METHICILLIN RESIS ST 09/08/2017 MAHI PANIAGUA DO Ot Z86.718 PERSONAL HISTORY OF OTHER VENOUS THROMBO 09/08/2017 MAHI PANIAGUA DO Ot Z87.891 PERSONAL HISTORY OF NICOTINE DEPENDENCE 09/24/2017 JAMILA EVANS DOI Ot F32.9 MAJOR DEPRESSIVE DISORDER, SINGLE EPISOD 09/24/2017 NATHAN MELCHOR JUAN MANUEL Ot F41.9 ANXIETY DISORDER, UNSPECIFIED 09/24/2017 NATHAN MELCHOR JUAN MANUEL Ot G89.29 OTHER CHRONIC PAIN 09/24/2017 JAMILA EVANS DOI Ot I25.10 ATHSCL HEART DISEASE OF [place] CORONARY 09/24/2017 NATHAN MELCHOR JUAN MANUEL Ot I47.1 SUPRAVENTRICULAR TACHYCARDIA 09/24/2017 NATHAN MELCHOR JUAN MANUEL Ot I48.0 PAROXYSMAL ATRIAL FIBRILLATION 09/24/2017 JAMILA EVANS DOI Ot K21.9 GASTRO-ESOPHAGEAL REFLUX DISEASE WITHOUT 09/24/2017 NATHAN MELCHOR JUAN MANUEL Ot K59.09 OTHER CONSTIPATION 09/24/2017 NATHAN MELCHOR JUAN MANUEL Ot Z79.89 1 WALLPAPER CONSULTANT (CURRENT) USE OF OPIATE ANALGE 09/24/2017 JAMILA EVANS DOI Ot Z79.89 9 OTHER WALLPAPER CONSULTANT (CURRENT) DRUG THERAPY 09/24/2017 NATHAN MELCHOR JUAN MANUEL Ot Z86.71 1 PERSONAL HISTORY OF PULMONARY EMBOLISM 09/25/2017 MAHI PANIAGUA DO Ot F41.9 ANXIETY DISORDER, UNSPECIFIED 09/25/2017 MAHI PANIAGUA DO Ot G43.909 MIGRAINE, UNSP, NOT INTRACTABLE, WITHOUT 09/25/2017 MAHI PANIAGUA DO K Ot I48.91 UNSPECIFIED ATRIAL FIBRILLATION 09/25/2017 MAHI PANIAGUA DO Ot K21.9 GASTRO-ESOPHAGEAL REFLUX DISEASE WITHOUT 09/25/2017 MAHI PANIAGUA DO Ot M47.9 SPONDYLOSIS, UNSPECIFIED 09/25/2017 MAHI PANIAGUA DO Ot R07.9 CHEST PAIN, UNSPECIFIED 09/25/2017 MAHI PANIAGUA DO Ot Z79.02 WALLPAPER CONSULTANT (CURRENT) USE OF ANTITHROMBOTI 09/25/2017 MAHI PANIAGUA [...] W/O MYELOPATHY OR RADICULOPA 11/24/2017 Ot M50.31 OTH ER CERVICAL DISC DEGENERATION, HIGH 11/24/2017 Ot Z98.1 ARTH RODESIS STATUS 11/24/2017 ERIKA DRAPER, JEOVANNY Mayo Ot B18. 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 2 CHRONIC VIRAL HEPATITIS C 07/05/2018 JEOVANNY JAMES MD Ot B18. 2 CHRONIC VIRAL HEPATITIS C 08/03/2018 CARRINGTON GARAY [facility] Ot Z01.818 ENCOUNTER FOR OTHER PREPROCEDURAL EXAMIN 08/04/2018 CARRINGTON GARAY [facility] Ot Z01.818 ENCOUNTER FOR OTHER PREPROCEDURAL [...] 08/06/2018 Champagne, [employer] W 274.9 GOUT, UNSPECIFIED 08/06/2018 Champagne, [employer] W 401.0 08/06/2018 Champagne, [employer] W 401.9 UNSPECIFIED ESSENTIAL HYPERTENSION 08/06/2018, [employer] W 427.0 PAROXYSMAL SUPRAVENTRICULAR TACHYCARDIA 08/06/2018, [employer] A 427.31 ATRIAL FIBRILLATION 08/06/2018, [employer] W E04.9 NONTOXIC GOITER, UNSPECIFIED 08/06/2018, [...] W 427.31 ATRIAL FIBRILLATION 08/06/2018, [employer] W E04.9 NONTOXIC GOITER, UNSPECIFIED 08/06/2018, [employer] W I10 ESSENTIAL (PRIMARY) HYPERTENSION 08/06/2018, [employer] W I47.1 SUPRAVENTRICULAR TACHYCARDIA 08/06/2018, [employer] W I48.0 PAROXYSMAL ATRIAL FIBRILLATION 09/04/2018 CARRINGTON GARAY Ot Z29.8 ENCOUNTER FOR OTHER SPECIFIED PROPHYLACT 09/05/2018 EMILIE BANEGAS APRN Ot R94.6 ABNORMAL RESULTS OF THYROID FUNCTION MIKE 09/05/2018 CARRINGTON GARAY [employer] SUPERVISOR Ot Z29.8 ENCOUNTER FOR OTHER SPECIFIED PROPHYLACT 09/16/2018 EMILIE BANEGAS APRN Ot R94.6 ABNORMAL RESULTS OF THYROID FUNCTION MIKE 10/04/2018 JEOVANNY JAMES MD P Ot B18. 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 2 CHRONIC VIRAL HEPATITIS C 10/04/2018 EMILIE BANEGAS APRN Ot R94.6 ABNORMAL RESULTS OF THYROID FUNCTION MIKE 10/05/2018 JEOVANNY JAMES MD P Ot B18. 2 CHRONIC VIRAL HEPATITIS C 10/05/2018 EMILIE BANEGAS APRN Ot E03.8 OTHER SPECIFIED HYPOTHYROIDISM 10/05/2018 EMILIE BANEGAS APRN Ot I1 0 ESSENTIAL (PRIMARY) HYPERTENSION 10/05/2018 EMILIE BAENGAS APRN Ot I48.0 PAROXYSMAL ATRIAL FIBRILLATION 10/13/2018 [...] Ot I1 0 ESSENTIAL (PRIMARY) HYPERTENSION 10/13/2018 MARIBEL DRAPER, NIC Nguyễn Ot I21.A1 MYOCARDIAL INFARCTION TYPE 2 10/13/2018 NIC LÓPEZ MD Ot I25.10 ATHSCL HEART DISEASE OF [place] CORONARY 10/13/2018 NIC LÓPEZ MD Ot I48.0 [...] Z98.1 ARTHRODESIS STATUS 11/24/2018 ERIKA DRAPER, JEOVANNY Mayo Ot B18. 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 2 CHRONIC VIRAL HEPATITIS C 11/25/2018 EMILIE BANEGAS E COMMERCE PROJECT MANAGER Ot E03.8 OTHER SPECIFIED HYPOTHYROIDISM 11/25/2018 EMILIE BANEGAS E COMMERCE PROJECT MANAGER Ot I1 0 ESSENTIAL (PRIMARY) HYPERTENSION 11/25/2018 EMILIE BANEGAS E COMMERCE PROJECT MANAGER Ot I48.0 PAROXYSMAL ATRIAL FIBRILLATION 01/06/2019 POST [...] Ot I25. 10 ATHSCL HEART DISEASE OF [place] CORONARY 03/01/2019 TERESA MENESES MD Ot I48. [...] MIGRAINE, UNSP, NOT INTRACTABLE, WITHOUT 03/01/2019 MUNDO JURAEZ MD, Ot I25.10 ATHSCL HEART DISEASE OF [place] CORONARY 03/01/2019 MUNDO JUAREZ MD Ot I48.91 UNSPECIFIED ATRIAL FIBRILLATION 03/01/2019 MUNDO JUAREZ MD, Ot I48.92 UNSPECIFIED ATRIAL FLUTTER 03/01/2019 MUNDO JUAREZ MD Ot M79.89 OTHER SPECIFIED SOFT TISSUE DISORDERS 03/01/2019 MUNDO JUAREZ MD, Ot 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, ACCID 03/01/2019 MUNDO JUAREZ MD, Ot Z79.01 WALLPAPER CONSULTANT (CURRENT) USE OF ANTICOAGULANT 03/01/2019 MUNDO JUAREZ MD Ot Z82.49 FAMILY HX OF ISCHEM HEART DIS AND OTH DI 03/01/2019 MUNDO JUAREZ MD, Ot Z86.010 PERSONAL HISTORY OF COLONIC POLYPS 03/01/2019 MUNDO JUAREZ MD Ot Z86.711 PERSONAL HISTORY OF PULMONARY EMBOLISM 03/01/2019 MUNDO JUAREZ MD Ot Z86.718 PERSONAL HISTORY OF OTHER VENOUS THROMBO 03/01/2019 MUNDO JUAREZ MD Ot Z87.19 PERSONAL HISTORY OF OTHER DISEASES OF TH 03/01/2019 MUNDO JUAREZ MD Ot Z87.448 PERSONAL HISTORY [...] HEPATITIS C WITHOUT HE 03/03/2019 MUNDO JUAREZ MD Ot E03.9 HYPOTHYROIDISM, UNSPECIFIED 03/03/2019 MUNDO JUAREZ MD, Ot F32.9 MAJOR DEPRESSIVE DISORDER, SINGLE EPISOD 03/03/2019 MUNDO JUAREZ MD, Ot F41.9 ANXIETY DISORDER, UNSPECIFIED 03/03/2019 MUNDO JUAREZ MD Ot G43.909 MIGRAINE, UNSP, NOT INTRACTABLE, WITHOUT 03/03/2019 MUNDO JUAREZ MD, Ot I25.10 ATHSCL HEART DISEASE OF [place] CORONARY 03/03/2019 MUNDO JUAREZ MD, Ot I48.91 UNSPECIFIED ATRIAL FIBRILLATION 03/03/2019 MUNDO JUAREZ MD, Ot I48.92 UNSPECIFIED ATRIAL FLUTTER 03/03/2019 MUNDO JUAREZ MD Ot M79.89 OTHER SPECIFIED SOFT TISSUE DISORDERS 03/03/2019 MUNDO JUAREZ MD, Ot 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, ACCID 03/03/2019 MUNDO JUAREZ MD, Ot Z79.01 SENIOR CARE (CURRENT) USE OF ANTICOAGULANT 03/03/2019 MUNDO JUAREZ [...] Ot I25. 10 ATHSCL HEART DISEASE OF [place] CORONARY 03/03/2019 TERESA MENESES MD Ot I48. [...] Ot I25. 10 ATHSCL HEART DISEASE OF [place] CORONARY 03/03/2019 TERESA MENESES MD Ot I48. [...] ABSENCE OF SPLEEN 03/09/2019 ERIKA DRAPER, JEOVANNY P Ot B18. 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 2 CHRONIC VIRAL HEPATITIS C 03/09/2019 EMILIE BANEGAS E COMMERCE PROJECT MANAGER Ot R94.6 ABNORMAL RESULTS OF THYROID FUNCTION MIKE 03/09/2019 ERIKA DRAPER, JEOVANNY P Ot B18. 2 CHRONIC VIRAL HEPATITIS C 03/09/2019 EMILIE BANEGAS E COMMERCE PROJECT MANAGER Ot E03.8 OTHER SPECIFIED HYPOTHYROIDISM 03/09/2019 EMILIE BANEGAS E COMMERCE PROJECT MANAGER Ot I1 0 ESSENTIAL (PRIMARY) HYPERTENSION 03/09/2019 EMILIE BANEGAS E COMMERCE PROJECT MANAGER Ot I48.0 PAROXYSMAL ATRIAL FIBRILLATION 03/09/2019 NELLY POST DO Ot B19.20 UNSPECIFIED VIRAL HEPATITIS C WITHOUT HE 03/09/2019 NELLY POST DO Ot E03.9 HYPOTHYROIDISM, UNSPECIFIED 03/09/2019 NELLY POST DO Ot F32.9 MAJOR DEPRESSIVE DISORDER, SINGLE EPISOD 03/09/2019 NELLY POST DO Ot F41.9 ANXIETY DISORDER, UNSPECIFIED 03/09/2019 NELLY POST DO Ot G43.909 MIGRAINE, UNSP, NOT INTRACTABLE, WITHOUT 03/09/2019 NELLY POST DO Ot I25.10 ATHSCL HEART DISEASE OF [place] CORONARY 03/09/2019 NELLY POST DO Ot I48.91 UNSPECIFIED ATRIAL FIBRILLATION 03/09/2019 NELLY POST DO Ot I48.92 UNSPECIFIED ATRIAL FLUTTER 03/09/2019 NELLY POST DO Ot R00.0 TACHYCARDIA, UNSPECIFIED 03/09/2019 NELLY POST DO Ot Z79.01 WALLPAPER CONSULTANT (CURRENT) USE OF ANTICOAGULANT 03/09/2019 NELLY POST DO Ot Z82.49 FAMILY HX OF ISCHE[place] HEART DIS AND OTH DI 03/09/2019 POST DO, NELLY Ot Z85.00 PERSONAL HISTORY OF MALIGNANT NEOPLASM O 03/09/2019 POST DO, NELLY Ot Z86.010 PERSONAL HISTORY OF COLONIC POLYPS 03/09/2019 POST DO, NELLY Ot Z86.711 PERSONAL HISTORY OF PULMONARY EMBOLISM 03/09/2019 POST DO, NELLY Ot Z86.718 PERSONAL HISTORY OF OTHER VENOUS THROMBO 03/09/2019 RENNER DO, NELLY Ot Z87.19 PERSONAL HISTORY OF OTHER DISEASES OF TH 03/09/2019 POST DO, NELLY Ot Z87.891 PERSONAL HISTORY OF NICOTINE DEPENDENCE 03/09/2019 RENNER DO, NELLY Ot Z90.49 ACQUIRED ABSENCE OF OTHER SPECIFIED PART 03/10/2019 POST DO, NELLY Ot E03.9 HYPOTHYROIDISM, UNSPECIFIED 03/10/2019 RENNER DO, NELLY Ot F32.9 MAJOR DEPRESSIVE DISORDER, SINGLE EPISOD 03/10/2019 RENNER DO, NELLY Ot F41.9 ANXIETY DISORDER, UNSPECIFIED 03/10/2019 RENNER DO, NELLY Ot G43.909 MIGRAINE, UNSP, NOT INTRACTABLE, WITHOUT 03/10/2019 POST DO, NELLY Ot I25.10 ATHSCL HEART DISEASE OF [place] CORONARY 03/10/2019 RENNER DO, NELLY Ot I48.91 UNSPECIFIED ATRIAL FIBRILLATION 03/10/2019 RENNER DO, NELLY Ot I48.92 UNSPECIFIED ATRIAL FLUTTER 03/10/2019 RENNER DO, NELLY Ot R00.0 TACHYCARDIA, UNSPECIFIED 03/10/2019 RENNER DO, NELLY Ot Z79.01 WALLPAPER CONSULTANT (CURRENT) USE OF ANTICOAGULANT 03/10/2019 POST DO, [...] HISTORY OF OTHER DISEASES OF TH 03/10/2019 POST DO, NELLY Ot Z87.891 PERSONAL HISTORY OF NICOTINE DEPENDENCE 03/10/2019 POST DO, NELLY Ot Z90.49 ACQUIRED ABSENCE OF OTHER SPECIFIED PART 03/10/2019 RENNER DO, NELLY Ot E03.9 HYPOTHYROIDISM, UNSPECIFIED 03/10/2019 RENNER DO, NELLY Ot F32.9 MAJOR DEPRESSIVE DISORDER, SINGLE EPISOD 03/10/2019 RENNER DO, NELLY Ot F41.9 ANXIETY DISORDER, UNSPECIFIED 03/10/2019 RENNER DO, NELLY Ot G43.909 MIGRAINE, UNSP, NOT INTRACTABLE, WITHOUT 03/10/2019 RENNER DO, NELLY Ot I25.10 ATHSCL HEART DISEASE OF [place] CORONARY 03/10/2019 POST DO, NELLY Ot I48.91 UNSPECIFIED ATRIAL FIBRILLATION 03/10/2019 RENNER DO, NELLY Ot I48.92 UNSPECIFIED ATRIAL FLUTTER 03/10/2019 RENNER DO, NELLY Ot R00.0 TACHYCARDIA, UNSPECIFIED 03/10/2019 RENNER DO, NELLY Ot Z79.01 WALLPAPER CONSULTANT (CURRENT) USE OF ANTICOAGULANT 03/10/2019 RENNER DO, NELLY Ot Z82.49 FAMILY HX OF ISCHEM HEART DIS AND OTH DI 03/10/2019 RENNER DO, NELLY Ot Z85.00 PERSONAL HISTORY OF MALIGNANT NEOPLASM O 03/10/2019 RENNER DO, NELLY Ot Z86.010 PERSONAL HISTORY OF COLONIC POLYPS 03/10/2019 RENNER DO, NELLY Ot Z86.711 PERSONAL HISTORY OF PULMONARY EMBOLISM 03/10/2019 RENNER DO, NELLY Ot Z86.718 PERSONAL HISTORY OF OTHER VENOUS THROMBO 03/10/2019 RENNER DO, NELLY Ot Z87.19 PERSONAL HISTORY OF OTHER DISEASES OF TH 03/10/2019 RENNER DO, NELLY Ot Z87.891 PERSONAL HISTORY OF NICOTINE DEPENDENCE 03/10/2019 RENNER DO, NELLY Ot Z90.49 ACQUIRED ABSENCE OF OTHER SPECIFIED PART 03/13/2019 POST DO, NELLY Ot B19.20 UNSPECIFIED VIRAL HEPATITIS C WITHOUT HE 03/13/2019 POST DO, NELLY Ot E03.9 HYPOTHYROIDISM, UNSPECIFIED 03/13/2019 RENNER DO, NELLY Ot F32.9 MAJOR DEPRESSIVE DISORDER, SINGLE EPISOD 03/13/2019 RENNER DO, NELLY Ot F41.9 ANXIETY DISORDER, UNSPECIFIED 03/13/2019 RENNER DO, NELLY Ot G43.909 MIGRAINE, UNSP, NOT INTRACTABLE, WITHOUT 03/13/2019 RENNER DO, NELLY Ot I25.10 ATHSCL HEART DISEASE OF [place] CORONARY 03/13/2019 POST DO, NELLY Ot I48.91 UNSPECIFIED ATRIAL FIBRILLATION 03/13/2019 RENNER DO, NELLY Ot I48.92 UNSPECIFIED ATRIAL FLUTTER 03/13/2019 RENNER DO, NELLY Ot R00.0 TACHYCARDIA, UNSPECIFIED 03/13/2019 RENNER DO, NELLY Ot Z79.01 SENIOR CARE (CURRENT) USE OF ANTICOAGULANT 03/13/2019 RENNER DO, NELLY Ot Z82.49 FAMILY HX OF ISCHEM HEART DIS AND OTH DI 03/13/2019 POST DO, NELLY Ot Z85.00 PERSONAL HISTORY OF MALIGNANT NEOPLASM O 03/13/2019 POST DO, NELLY Ot Z86.010 PERSONAL HISTORY OF COLONIC POLYPS 03/13/2019 RENNER DO, NELLY Ot Z86.711 PERSONAL HISTORY OF PULMONARY EMBOLISM 03/13/2019 RENNER DO, NELLY Ot Z86.718 PERSONAL HISTORY OF OTHER VENOUS THROMBO 03/13/2019 RENNER DO, NELLY Ot Z87.19 PERSONAL HISTORY OF OTHER DISEASES OF TH 03/13/2019 POST DO, NELLY Ot Z87.891 PERSONAL HISTORY OF NICOTINE DEPENDENCE 03/13/2019 RENNER DO, NELLY Ot Z90.49 ACQUIRED ABSENCE OF OTHER SPECIFIED PART 03/15/2019 POST DO, NELLY Ot B19.20 UNSPECIFIED VIRAL HEPATITIS C WITHOUT HE 03/15/2019 RENNER DO, NELLY Ot E03.9 HYPOTHYROIDISM, UNSPECIFIED 03/15/2019 RENNER DO, NELLY Ot F32.9 MAJOR DEPRESSIVE DISORDER, SINGLE EPISOD 03/15/2019 RENNER DO, NELLY Ot F41.9 ANXIETY DISORDER, UNSPECIFIED 03/15/2019 RENNER DO, NELLY Ot G43.909 MIGRAINE, UNSP, NOT INTRACTABLE, WITHOUT 03/15/2019 POST DO, NELLY Ot I25.10 ATHSCL HEART DISEASE OF [place] CORONARY 03/15/2019 POST DO, NELLY Ot I48.91 UNSPECIFIED ATRIAL FIBRILLATION 03/15/2019 RENNER DO, NELLY Ot I48.92 UNSPECIFIED ATRIAL FLUTTER 03/15/2019 RENNER DO, NELLY Ot R00.0 TACHYCARDIA, UNSPECIFIED 03/15/2019 RENNER DO, NELLY Ot Z79.01 SENIOR CARE (CURRENT) USE OF ANTICOAGULANT 03/15/2019 POST DO, NELLY Ot Z82.49 FAMILY HX OF ISCHEM HEART DIS AND OTH DI 03/15/2019 POST DO, NELLY Ot Z85.00 PERSONAL HISTORY OF MALIGNANT NEOPLASM O 03/15/2019 POST DO, NELLY Ot Z86.010 PERSONAL HISTORY OF COLONIC POLYPS 03/15/2019 POST DO, NELLY Ot Z86.711 PERSONAL HISTORY OF PULMONARY EMBOLISM 03/15/2019 NELLY POST DO, Ot Z86.718 PERSONAL HISTORY OF OTHER VENOUS THROMBO 03/15/2019 NELLY POST DO, Ot Z87.19 PERSONAL HISTORY OF OTHER DISEASES OF TH 03/15/2019 NELLY POST DO, Ot Z87.891 PERSONAL HISTORY OF NICOTINE DEPENDENCE 03/15/2019 NELLY POST DO, Ot Z90.49 ACQUIRED ABSENCE OF OTHER SPECIFIED PART 03/20/2019 Rick Doyle W 785.0 TACHYCARDIA, UNSPECIFIED 03/20/2019 Rick Doyle W R00.0 TACHYCARDIA, UNSPECIFIED 04/10/2019 JOSE TAVERAS [...] DO, Ot I25.10 ATHSCL HEART DISEASE OF [place] CORONARY 04/10/2019 JOSE TAVERAS DO, Ot I25.2 [...] PERSONAL HISTORY OF OTHER DISEASES OF TH 04/10/2019 JOSE TAVERAS DO, Ot Z90.49 ACQUIRED ABSENCE OF OTHER SPECIFIED PART 04/10/2019 JOSE TAVERAS DO Ot Z95.9 PRESENCE OF CARDIAC AND VASCULAR IMPLANT 04/10/2019 JOSE TAVERAS DO Ot Z98.1 ARTHRODESIS STATUS 04/10/2019 JOSE TAVERAS DO Ot Z98.2 PRESENCE OF CEREBROSPINAL FLUID DRAINAGE 04/14/2019 TERESA MENESES MD Ot B19. 20 UNSPECIFIED VIRAL HEPATITIS C WITHOUT HE 04/14/2019 TERESA MENESES MD Ot E03. 9 HYPOTHYROIDISM, UNSPECIFIED 04/14/2019 TERESA MENESES MD Ot F32. 9 MAJOR DEPRESSIVE DISORDER, SINGLE EPISOD 04/14/2019 TERESA MENESES MD Ot F41. 9 ANXIETY DISORDER, UNSPECIFIED 04/14/2019 TERESA MENESES MD Ot G43.909 MIGRAINE, UNSP, NOT INTRACTABLE, WITHOUT 04/14/2019 TERESA MENESES MD Ot I25. 10 ATHSCL HEART DISEASE OF [place] CORONARY 04/14/2019 TERESA MENESES MD Ot I48. [...] DEPRESSIVE DISORDER, SINGLE EPISOD 04/17/2019 JOSE TAVERAS DO, Ot F41.9 ANXIETY DISORDER, UNSPECIFIED 04/17/2019 JOSE TAVERAS DO, Ot G43.909 MIGRAINE, UNSP, NOT INTRACTABLE, WITHOUT 04/17/2019 JOSE TAVERAS DO, Ot I25.10 ATHSCL HEART DISEASE OF [place] CORONARY 04/17/2019 JOSE TAVERAS DO, Ot I25.2 [...] HEART DIS AND OTH DI 04/17/2019 JOSE TAVERAS DO, Ot Z86.711 PERSONAL HISTORY [...] Ot I25. 10 ATHSCL HEART DISEASE OF [place] CORONARY 04/20/2019 TERESA MENESES MD Ot I48. [...] HISTORY OF OTHER DISEASES OF UR 04/20/2019 TERESA MENESES MD Ot Z87.891 PERSONAL HISTORY OF NICOTINE DEPENDENCE 04/20/2019 TERESA MENESES MD Ot Z90. 49 ACQUIRED ABSENCE OF OTHER SPECIFIED PART 04/20/2019 TERESA MENESES MD Ot Z90. 81 ACQUIRED ABSENCE OF SPLEEN 05/19/2019 LEISURE, LORENAA W 780.4 DIZZINESS AND GIDDINESS 05/19/2019 LEISURE, RIVAS W R42 DIZZINESS AND GIDDINESS 05/27/2019 Rick Doyle W 466.0 ACUTE BRONCHITIS 05/27/2019 Rick Doyle W 788.1 DYSURIA 05/27/2019 Rick Doyle W J20.9 ACUTE BRONCHITIS, UNSPECIFIED 05/27/2019 Rick Doyle W R30.0 DYSURIA 05/30/2019 NELLY POST DO Ot B19.20 UNSPECIFIED VIRAL HEPATITIS C WITHOUT HE 05/30/2019 NELLY POST DO Ot E03.9 HYPOTHYROIDISM, UNSPECIFIED 05/30/2019 NELLY POST DO, Ot F32.9 MAJOR DEPRESSIVE DISORDER, SINGLE EPISOD 05/30/2019 NELLY POST DO, Ot F41.9 ANXIETY DISORDER, UNSPECIFIED 05/30/2019 NELLY POST DO, Ot G43.909 MIGRAINE, UNSP, NOT INTRACTABLE, WITHOUT 05/30/2019 NELLY POST DO, Ot I25.10 ATHSCL HEART DISEASE OF [place] CORONARY 05/30/2019 POST DO, NELLY Ot I48.91 UNSPECIFIED ATRIAL FIBRILLATION 05/30/2019 POST DO, NELLY Ot I48.92 UNSPECIFIED ATRIAL FLUTTER 05/30/2019 POST DO, NELLY Ot I50.9 HEART FAILURE, UNSPECIFIED 05/30/2019 RENNER DO, NELLY Ot R07.9 CHEST PAIN, UNSPECIFIED 05/30/2019 RENNER DO, NELLY Ot R79.89 OTHER SPECIFIED ABNORMAL FINDINGS OF BLO 05/30/2019 POST DO, NELLY Ot Z82.49 FAMILY HX OF ISCHE[place] HEART DIS AND OTH DI 05/30/2019 RENNER DO, NELLY Ot Z86.010 PERSONAL HISTORY OF COLONIC POLYPS 05/30/2019 RENNER DO, NELLY Ot Z86.711 PERSONAL HISTORY OF PULMONARY EMBOLISM 05/30/2019 RENNER DO, NELLY Ot Z86.718 PERSONAL HISTORY OF OTHER VENOUS THROMBO 05/30/2019 RENNER DO, NELLY Ot Z87.891 PERSONAL HISTORY OF NICOTINE DEPENDENCE 05/30/2019 RENNER DO, NELLY Ot Z90.49 ACQUIRED ABSENCE OF OTHER SPECIFIED PART 06/02/2019 RENNER DO, NELLY Ot B19.20 UNSPECIFIED VIRAL HEPATITIS C WITHOUT HE 06/02/2019 RENNER DO, NELLY Ot E03.9 HYPOTHYROIDISM, UNSPECIFIED 06/02/2019 RENNER DO, NELLY Ot F32.9 MAJOR DEPRESSIVE DISORDER, SINGLE EPISOD 06/02/2019 RENNER DO, NELLY Ot F41.9 ANXIETY DISORDER, UNSPECIFIED 06/02/2019 RENNER DO, NELLY Ot G43.909 MIGRAINE, UNSP, NOT INTRACTABLE, WITHOUT 06/02/2019 RENNER DO, NELYL Ot I25.10 ATHSCL HEART DISEASE OF [place] CORONARY 06/02/2019 POST DO, NELLY Ot I48.91 UNSPECIFIED ATRIAL FIBRILLATION 06/02/2019 RENNER DO, NELLY Ot I48.92 UNSPECIFIED ATRIAL FLUTTER 06/02/2019 RENNER DO, NELLY Ot I50.9 HEART FAILURE, UNSPECIFIED 06/02/2019 RENNER DO, NELLY Ot R07.9 CHEST PAIN, UNSPECIFIED 06/02/2019 POST DO, NELLY Ot R79.89 OTHER SPECIFIED ABNORMAL FINDINGS OF BLO 06/02/2019 POST DO, NELLY Ot Z82.49 FAMILY HX OF [place] HEART DIS AND OTH DI 06/02/2019 RENNER DO, NELLY Ot Z86.010 PERSONAL HISTORY OF COLONIC POLYPS 06/02/2019 RENNER DO, NELLY Ot Z86.711 PERSONAL HISTORY OF PULMONARY EMBOLISM 06/02/2019 NELLY POST DO Ot Z86.718 PERSONAL HISTORY OF OTHER VENOUS THROMBO 06/02/2019 NELLY POST DO Ot Z87.891 PERSONAL HISTORY OF NICOTINE DEPENDENCE 06/02/2019 NELLY POST DO Ot Z90.49 ACQUIRED ABSENCE OF OTHER [...] GIDDINESS 10/10/2019 Rick Doyle R51 HEADACHE 10/21/2019 ZAIRA DRAPER, TERESA Caal Ot B19. 20 UNSPECIFIED VIRAL HEPATITIS C WITHOUT HE 10/21/2019 ZAIRA DRAPER, TERESA Caal Ot E03. 9 HYPOTHYROIDISM, UNSPECIFIED 10/21/2019 ZAIRA DRAPER, TERESA Caal Ot F32. 9 MAJOR DEPRESSIVE DISORDER, SINGLE EPISOD 10/21/2019 ZAIRA DRAPER, TERESA Caal Ot F41. 9 ANXIETY DISORDER, UNSPECIFIED 10/21/2019 TERESA MENESES MD Ot G43.909 MIGRAINE, UNSP, NOT INTRACTABLE, WITHOUT 10/21/2019 TERESA MENESES MD Ot I25. 10 ATHSCL HEART DISEASE OF [place] CORONARY 10/21/2019 TERESA MENESES MD Ot I48. 91 UNSPECIFIED ATRIAL FIBRILLATION 10/21/2019 TERESA MENESES MD Ot I48. 92 UNSPECIFIED ATRIAL FLUTTER 10/21/2019 TERESA MENESES MD Ot L03.114 CELLULITIS OF LEFT UPPER LIMB 10/21/2019 TERESA MENESES MD Ot Z82. 49 FAMILY HX OF [place] HEART DIS AND OTH DI 10/21/2019 TERESA MENESES MD Ot Z86.010 PERSONAL HISTORY [...] Ot Z90. 81 ACQUIRED ABSENCE OF SPLEEN 11/09/2019 FLACO DURÁN MD Ot E03. 9 HYPOTHYROIDISM, UNSPECIFIED 11/09/2019 FLACO DURÁN MD, Ot F32. 9 MAJOR DEPRESSIVE DISORDER, SINGLE EPISOD 11/09/2019 FLACO DURÁN MD, Ot F41. 9 ANXIETY DISORDER, UNSPECIFIED 11/09/2019 FLACO DURÁN MD, Ot I25. 10 ATHSCL HEART DISEASE OF [place] CORONARY 11/09/2019 FLACO DURÁN MD, Ot I48. 91 UNSPECIFIED ATRIAL FIBRILLATION 11/09/2019 FLACO DURÁN MD Ot R07. 0 PAIN IN THROAT 11/09/2019 FLACO DURÁN MD, Ot R07. 9 CHEST PAIN, UNSPECIFIED 11/09/2019 FLACO DURÁN MD, Ot R22. 0 LOCALIZED SWELLING, MASS AND LUMP, HEAD 11/09/2019 FLACO DURÁN MD, Ot Z79. 01 WALLPAPER CONSULTANT (CURRENT) USE OF ANTICOAGULANT 11/09/2019 FLACO DURÁN MD, Ot Z82. 49 FAMILY HX OF [place] HEART DIS AND OTH DI 11/09/2019 FLACO DURÁN MD, Ot Z85.038 PERSONAL HISTORY OF MALIGNANT NEOPLASM O 11/09/2019 FLACO DURÁN MD, Ot Z86.711 PERSONAL HISTORY OF PULMONARY EMBOLISM 11/09/2019 FLACO DURÁN MD, Ot Z86.718 PERSONAL HISTORY OF OTHER VENOUS THROMBO 11/09/2019 FLACO DURÁN MD, Ot Z87.891 PERSONAL HISTORY OF NICOTINE DEPENDENCE 11/11/2019 CARRINGTON GARAY Ot Z01.818 ENCOUNTER FOR OTHER PREPROCEDURAL EXAMIN 11/14/2019 FLACO DURÁN MD, Ot E03. 9 HYPOTHYROIDISM, UNSPECIFIED 11/14/2019 FLACO DURÁN MD, Ot F32. 9 MAJOR DEPRESSIVE DISORDER, SINGLE EPISOD 11/14/2019 FLACO DURÁN MD, Ot F41. 9 ANXIETY DISORDER, UNSPECIFIED 11/14/2019 FLACO DURÁN MD, Ot I25. 10 ATHSCL HEART DISEASE OF [place] CORONARY 11/14/2019 FLACO DURÁN MD, Ot I48. 91 UNSPECIFIED ATRIAL FIBRILLATION 11/14/2019 FLACO DURÁN MD, Ot R07. 0 PAIN IN THROAT 11/14/2019 FLACO DURÁN MD, Ot R07. 9 CHEST PAIN, UNSPECIFIED 11/14/2019 FLACO DURÁN MD, Ot R22. 0 LOCALIZED SWELLING, MASS AND LUMP, HEAD 11/14/2019 FLACO DURÁN MD, Ot Z79. 01 WALLPAPER CONSULTANT (CURRENT) USE OF ANTICOAGULANT 11/14/2019 FLACO DURÁN MD, Ot Z82. 49 FAMILY HX OF [place] HEART DIS AND OTH DI 11/14/2019 FLACO DURÁN MD, Ot Z85.038 PERSONAL HISTORY OF MALIGNANT NEOPLASM O 11/14/2019 FLACO DURÁN MD, Ot Z86.711 PERSONAL HISTORY OF PULMONARY EMBOLISM 11/14/2019 FLACO DURÁN MD, Ot Z86.718 PERSONAL HISTORY OF OTHER VENOUS THROMBO 11/14/2019 FLACO DURÁN MD, Ot Z87.891 PERSONAL HISTORY OF NICOTINE DEPENDENCE 11/22/2019 FLACO DURÁN MD, Ot E03. 9 HYPOTHYROIDISM, UNSPECIFIED 11/22/2019 FLACO DURÁN MD, Ot F32. 9 MAJOR DEPRESSIVE DISORDER, SINGLE EPISOD 11/22/2019 FLACO DURÁN MD, Ot F41. 9 ANXIETY DISORDER, UNSPECIFIED 11/22/2019 FLACO DURÁN MD, Ot I25. 10 ATHSCL HEART DISEASE OF [place] CORONARY 11/22/2019 FLACO DURÁN MD, Ot I48. 91 UNSPECIFIED ATRIAL FIBRILLATION 11/22/2019 FLACO DURÁN MD, Ot R07. 0 PAIN IN THROAT 11/22/2019 FLACO DURÁN MD, Ot R07. 9 CHEST PAIN, UNSPECIFIED 11/22/2019 FLACO DURÁN MD, Ot R22. 0 LOCALIZED SWELLING, MASS AND LUMP, HEAD 11/22/2019 FLACO DURÁN MD, Ot Z79. 01 WALLPAPER CONSULTANT (CURRENT) USE OF ANTICOAGULANT 11/22/2019 FLACO DURÁN MD, Ot Z82. 49 FAMILY HX OF [place] HEART DIS AND OTH DI 11/22/2019 FLACO DURÁN MD, Ot Z85.038 PERSONAL HISTORY OF MALIGNANT NEOPLASM O 11/22/2019 FLACO DURÁN MD, Ot Z86.711 PERSONAL HISTORY [...] Ot I25. 10 ATHSCL HEART DISEASE OF [place] CORONARY 12/20/2019 TERESA MENESES MD Ot I48. 91 UNSPECIFIED ATRIAL FIBRILLATION 12/20/2019 TERESA MENESES MD Ot I48. 92 UNSPECIFIED ATRIAL FLUTTER 12/20/2019 TERESA MENESES MD Ot L03.114 CELLULITIS OF LEFT UPPER LIMB 12/20/2019 TERESA MENESES MD Ot Z82. 49 FAMILY HX OF [place] HEART DIS AND OTH DI 12/20/2019 TEREAS MENESES MD Ot Z86.010 PERSONAL HISTORY OF [...] Ot Z90. 81 ACQUIRED ABSENCE OF SPLEEN 01/17/2020 JEOVANNY JAMES MD Ot B18. 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 2 CHRONIC VIRAL HEPATITIS C 01/17/2020 EMILIE BANEGAS APRN Ot R94.6 ABNORMAL RESULTS OF THYROID FUNCTION MIKE 01/17/2020 JEOVANNY JAMES MD Ot B18. 2 CHRONIC VIRAL HEPATITIS C 01/17/2020 EMILIE BANEGAS APRN Ot E03.8 OTHER SPECIFIED HYPOTHYROIDISM 01/17/2020 EMILIE BANEGAS APRN Ot I1 0 ESSENTIAL (PRIMARY) HYPERTENSION 01/17/2020 EMILIE BANEGAS APRN Ot I48.0 PAROXYSMAL ATRIAL FIBRILLATION 01/19/2020 KACY MARC MD Ot B19.2 0 UNSPECIFIED VIRAL HEPATITIS C WITHOUT HE 01/19/2020 KACY MARC MD Ot E03.9 HYPOTHYROIDISM, UNSPECIFIED 01/19/2020 KACY MARC MD Ot F32.9 MAJOR DEPRESSIVE DISORDER, SINGLE EPISOD 01/19/2020 KACY MARC MD Ot F41.9 ANXIETY DISORDER, UNSPECIFIED 01/19/2020 KACY MARC MD Ot G40.9 09 EPILEPSY, UNSP, NOT INTRACTABLE, WITHOUT 01/19/2020 KACY MARC MD Ot I25.1 0 ATHSCL HEART DISEASE OF [place] CORONARY 01/19/2020 KACY MARC MD Ot I48.9 1 UNSPECIFIED ATRIAL FIBRILLATION 01/19/2020 KACY MARC MD Ot I48.9 2 UNSPECIFIED ATRIAL FLUTTER 01/19/2020 KACY MARC MD Ot M19.9 1 PRIMARY OSTEOARTHRITIS, UNSPECIFIED SITE 01/19/2020 KACY MARC MD Ot N40.0 BENIGN PROSTATIC HYPERPLASIA WITHOUT LOW 01/19/2020 KACY MARC MD Ot R07.9 CHEST PAIN, UNSPECIFIED 01/19/2020 KACY MARC MD Ot Z79.8 99 OTHER SENIOR CARE (CURRENT) DRUG THERAPY 01/19/2020 KACY MARC MD, Ot Z85.0 38 PERSONAL HISTORY OF MALIGNANT NEOPLASM O 01/19/2020 KACY MARC MD Ot Z86.7 11 PERSONAL HISTORY OF PULMONARY EMBOLISM 01/19/2020 KACY MARC MD Ot Z87.1 9 PERSONAL HISTORY OF OTHER DISEASES OF TH 01/19/2020 KACY MARC MD, Ot Z87.8 91 PERSONAL HISTORY OF NICOTINE DEPENDENCE 01/19/2020 TERESA MENESES MD Ot B19. 20 UNSPECIFIED VIRAL HEPATITIS C WITHOUT HE 01/19/2020 TERESA MENESES MD Ot E03. 9 HYPOTHYROIDISM, UNSPECIFIED 01/19/2020 TERESA MENESES MD Ot F32. 9 MAJOR DEPRESSIVE DISORDER, SINGLE EPISOD 01/19/2020 TERESA MENESES MD Ot F41. 9 ANXIETY DISORDER, UNSPECIFIED 01/19/2020 TERESA MENESES MD Ot G43.909 MIGRAINE, UNSP, NOT INTRACTABLE, WITHOUT 01/19/2020 TERESA MENESES MD, Ot I25. 10 ATHSCL HEART DISEASE OF [place] CORONARY 01/19/2020 TERESA MENESES MD Ot I48. 91 UNSPECIFIED ATRIAL FIBRILLATION 01/19/2020 TERESA MENESES MD Ot I48. 92 UNSPECIFIED ATRIAL FLUTTER 01/19/2020 TERESA MENESES MD Ot L03.114 CELLULITIS OF LEFT UPPER LIMB 01/19/2020 TERESA MENESES MD Ot Z82. 49 FAMILY HX OF [place] HEART DIS AND OTH DI 01/19/2020 TERESA MENESES MD Ot Z86.010 PERSONAL HISTORY OF COLONIC POLYPS 01/19/2020 TERESA MENESES MD, Ot Z86.718 PERSONAL HISTORY OF OTHER VENOUS THROMBO 01/19/2020 TERESA MENESES MD, Ot Z87.448 PERSONAL HISTORY OF OTHER DISEASES OF UR 01/19/2020 TERESA MENESES MD, Ot Z87.891 PERSONAL HISTORY OF NICOTINE DEPENDENCE 01/19/2020 TERESA MENESES MD, Ot Z90. 49 ACQUIRED ABSENCE OF OTHER SPECIFIED PART 01/19/2020 TERESA MENESES MD, Ot Z90. 81 ACQUIRED ABSENCE OF SPLEEN 01/25/2020 FLACO DURÁN MD, Ot E03. 9 HYPOTHYROIDISM, UNSPECIFIED 01/25/2020 FLACO DURÁN MD, Ot F32. 9 MAJOR DEPRESSIVE DISORDER, SINGLE EPISOD 01/25/2020 FLACO DURÁN MD, Ot F41. 9 ANXIETY DISORDER, UNSPECIFIED 01/25/2020 FLACO DURÁN MD, Ot I25. 10 ATHSCL HEART DISEASE OF [place] CORONARY 01/25/2020 FLACO DURÁN MD, Ot I48. 91 UNSPECIFIED ATRIAL FIBRILLATION 01/25/2020 FLACO DURÁN MD, Ot R07. 0 PAIN IN THROAT 01/25/2020 FLACO DURÁN MD, Ot R07. 9 CHEST PAIN, UNSPECIFIED 01/25/2020 FLACO DURÁN MD, Ot R22. 0 LOCALIZED SWELLING, MASS AND LUMP, HEAD 01/25/2020 FLACO DURÁN MD, Ot Z79. 01 WALLPAPER CONSULTANT (CURRENT) USE OF ANTICOAGULANT 01/25/2020 FLACO DURÁN MD, Ot Z82. 49 FAMILY HX OF [place] HEART DIS AND OTH DI 01/25/2020 FLACO DURÁN MD, Ot Z85.038 PERSONAL HISTORY OF MALIGNANT NEOPLASM O 01/25/2020 LEEANNA DRAPER, FLACO Verma Ot Z86.711 PERSONAL HISTORY OF PULMONARY EMBOLISM 01/25/2020 LEEANNA DRAPER, FLACO Verma Ot Z86.718 PERSONAL HISTORY OF OTHER VENOUS THROMBO 01/25/2020 LEEANNA DRAPER, FLACO Verma Ot Z87.891 PERSONAL HISTORY OF NICOTINE DEPENDENCE 02/01/2020 Brown, Ernst W 401.0 MALIGNANT ESSENTIAL HYPERTENSION 02/01/2020 Brown, Ernst W 427.31 ATRIAL FIBRILLATION 02/01/2020 Brown, Ernst W 784.0 HEADACHE 02/01/2020 Brown, Ernst W E04.9 NONTOXIC GOITER, UNSPECIFIED 02/01/2020 Brown, Ernst W E78.5 HYPERLIPIDEMIA, UNSPECIFIED 02/01/2020 Brown, Ernst W F41.9 ANXIETY DISORDER, UNSPECIFIED 02/01/2020 Brown, Ernst W H81.13 BENIGN PAROXYSMAL VERTIGO, BILATERAL 02/01/2020 Brown, Ernst W I10 ESSENTIAL (PRIMARY) HYPERTENSION 02/01/2020 Brown, Ernst W I47.1 SUPRAVENTRICULAR TACHYCARDIA 02/01/2020 Brown, Ernst W I48.0 PAROXYSMAL ATRIAL FIBRILLATION 02/01/2020 Brown, Ernst W I48.91 UNSPECIFIED ATRIAL FIBRILLATION 02/01/2020 Brown, Ernst W J20.9 ACUTE BRONCHITIS, UNSPECIFIED 02/01/2020 Brown, Ernst W 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 9 HYPOTHYROIDISM, UNSPECIFIED 02/22/2020 ZAIRA DRAPER, TERESA J Ot F32. 9 MAJOR DEPRESSIVE DISORDER, SINGLE EPISOD 02/22/2020 ZAIRA DRAPER, TERESA J Ot F41. 9 ANXIETY DISORDER, UNSPECIFIED 02/22/2020 ZAIRA DRAPER, TERESA J Ot I10 ESSENTIAL (PRIMARY) HYPERTENSION 02/22/2020 ZAIRA DRAPER, TERESA J Ot I20. 0 UNSTABLE ANGINA 02/22/2020 TERESA MENESES MD Ot I25. 2 OLD MYOCARDIAL INFARCTION 02/22/2020 TERESA MENESES MD Ot I48. 91 UNSPECIFIED ATRIAL FIBRILLATION 02/22/2020 TERESA MENESES MD Ot I48. 92 UNSPECIFIED ATRIAL FLUTTER 02/22/2020 TERESA MENESES MD Ot R07. 9 CHEST PAIN, UNSPECIFIED 02/22/2020 TERESA MENESES MD Ot Z79. 01 SENIOR CARE (CURRENT) USE OF ANTICOAGULANT 02/22/2020 TERESA MENESES MD Ot Z82. 49 FAMILY HX OF [place] HEART DIS AND OTH DI 02/22/2020 TERESA MENESES MD Ot Z85.038 PERSONAL HISTORY OF MALIGNANT NEOPLASM O 02/22/2020 TERESA MENESES MD Ot Z86.711 PERSONAL HISTORY OF PULMONARY EMBOLISM 02/22/2020 TERESA MENESES MD Ot Z87.891 PERSONAL HISTORY OF NICOTINE DEPENDENCE 02/29/2020 TERESA MENESES MD Ot E03. 9 HYPOTHYROIDISM, UNSPECIFIED 02/29/2020 TERESA MENESES MD Ot F32. 9 MAJOR DEPRESSIVE DISORDER, SINGLE EPISOD 02/29/2020 TERESA MENESES MD Ot F41. 9 ANXIETY DISORDER, UNSPECIFIED 02/29/2020 TERESA MENESES MD Ot I10 ESSENTIAL (PRIMARY) HYPERTENSION 02/29/2020 TERESA MENESES MD Ot I20. 0 UNSTABLE ANGINA 02/29/2020 TERESA MENESES MD Ot I25. 2 OLD MYOCARDIAL INFARCTION 02/29/2020 TERESA MENESES MD Ot I48. 91 UNSPECIFIED ATRIAL FIBRILLATION 02/29/2020 TERESA MENESES MD Ot I48. 92 UNSPECIFIED ATRIAL FLUTTER 02/29/2020 TERESA MENESES MD Ot R07. 9 CHEST PAIN, UNSPECIFIED 02/29/2020 TERESA MENESES MD Ot Z79. 01 SENIOR CARE (CURRENT) USE OF ANTICOAGULANT 02/29/2020 TERESA MENESES MD Ot Z82. 49 FAMILY HX OF [place] HEART DIS AND OTH DI 02/29/2020 TERESA MENESES MD Ot Z85.038 PERSONAL HISTORY OF MALIGNANT NEOPLASM O 02/29/2020 TERESA MENESES MD Ot Z86.711 PERSONAL HISTORY OF PULMONARY EMBOLISM 02/29/2020 ZAIRA DRAPER, TERESA Caal Ot Z87.891 PERSONAL HISTORY OF NICOTINE DEPENDENCE Procedures Code Description Performed By Per formed On 45.23 COLO NOSCOPY 02/16/2011 86.22 EXCI S DEBRIDE OF WOUND, INFECT, OR BURN 02/18/2011 86.04 OTHE R SKIN SUBQ I D 03/23/2011 47126 PSYC H IND W/MED CK 20 09/06/2012 84057 ROUT INE VENIPUNCTURE 02/13/2014 23806 INR (IN HOUSE) 02/13/2014 21648 CBC 02/13/2014 28965 CMP 02/13/2014 1164176 GF R CALC (RESULT ONLY) 02/13/2014 99979 SONDRA MIN D 25-HYDROXY (D2,D3, TOTAL) 02/13/2014 75396 VIT B 12 02/13/2014 08100 TSH 02/13/2014 TESTFRTOT TESTOSTERONE FREE AND TOTAL MALE 02/13/2014 03176 ROUT INE VENIPUNCTURE 02/19/2014 74240 LIPI D PANEL 02/19/2014 J1080 Depo -Testosterone 200 mg/mL oil 03/12/2014 70588 THER APUTIC INJ SQ/IM 04/11/2014 31682 THER APUTIC INJ SQ/IM 05/08/2014 19315 THER APUTIC INJ SQ/IM 06/20/2014 62701 THER APUTIC INJ SQ/IM 06/20/2014 24715 ROUT INE VENIPUNCTURE 06/21/2014 12453 UA L PRABHAKAR DIP 06/21/2014 TESTFRTOT TESTOSTERONE FREE AND TOTAL MALE 06/22/2014 30371 TEST OSTERONE TOTAL MALES 07/23/2014 86232 THER APUTIC INJ SQ/IM 07/23/2014 J1080 Depo -Testosterone 200 mg/mL oil 07/23/2014 16481 THER APUTIC INJ SQ/IM 08/20/2014 55780 THER APUTIC INJ SQ/IM 09/27/2014 08426 AMERITOX 11/05/2014 36684 THER APUTIC INJ SQ/IM 12/21/2014 99.61 ATRI AL CARDIOVERSION 02/17/2015 37.22 LEFT HEART CARDIAC CATH 02/18/2015 88.42 CONT RAST AORTOGRAM 02/18/2015 88.53 LT H EART ANGIOCARDIOGRAM 02/18/2015 88.56 ZACKERY WILLIAM ARTERIOGR-2 CATH 02/18/2015 [id number] ME ASURE OF CARDIAC SAMPL PRESSURE, L H 09/24/2017 [id number] FL UOROSCOPY OF MULT COR ART USING L OSM 09/24/2017 [id number] FL UOROSCOPY OF LEFT HEART USING LOW OSMO 09/24/2017 [id number] ME ASURE OF CARDIAC SAMPL PRESSURE, L H 10/13/2018 [id number] FL UOROSCOPY OF MULT COR ART USING L OSM 10/13/2018 [id number] FL UOROSCOPY OF LEFT HEART USING LOW OSMO 10/13/2018 [id number] FL UOROSCOPY OF THORACIC AORTA USING LOW [...] poor plasma by coagulation assay See Footnote NR Prothrombin gene [id number] mutation detect ion - 08/23/17 11:01 Prothrombin gene [id number] mutation detection See fo otnote [facility] Comprehensive metabolic panel - 09/01/17 21:21 Serum [...] detection by PCR with reflex to quantitation [id number] <=11 HEPATITIS C GENOTYPE - 11/12/17 11:55 [...] CORRECTED 10.1 mg/dL 8.5-10.1 Serum or plasma dwamj-8-wpxykwcjffs.tumo r marker measurement (mass/volume) - 06/24/18 12:38 Serum or plasma pzaci-1-bvoovihtine.tumo r marker measurement (mass/volume) 6.0 % 0.0-8.8 [...] volume) 1.12 ng/dL 0.70-1.48 Serum or plasma tjhmg-9-asbglmgkjwd.tumo r marker measurement (mass/volume) - 10/04/18 10:34 Serum or plasma keoxo-6-vrmskhpnhrv.tumo r marker measurement (mass/volume) 6.0 % 0.0-8.8 [...] Negative Urine-Blood Negative Negative Urine-Color Yellow Colorless-[place] ow Urine-Glucose Negative Negative Urine-Ketones Negative Negative Urine-Leukocytes Negative Negative Urine-Mucus 1+ Urine-Nitrite Negative Negative Urine-Other Urine Saved if Culture Need ed (48hrs from time of collection) Urine-pH 5.5 5-8.5 Urine-Protein Negative Negative Urine-RBC Negative Urine-Specific [place] 1.010 1.000-1 .030 Urine-WBC Rare/HPF Urobilinogen 0.2 [...] 7-25 CREATININE 1.49 mg/dL 0.70-1.25 eGFR NON-AFR. [place] 50 mL/min/1.73m2 > OR = 60 eGFR [...] Disease Ab, Quant, IgM <0.80 [facility]0.79 [facility], Qn - 9 04:53 RMSF, IgG, EIA Positive Negative RMSF, IgG, IFA - 05/19/19 04:53 RMSF, IgG, IFA 1:64 Neg <1:64 Jannet Ndn Spotted Fever, IgM - 05/19/19 04:53 Jannet Ndn Spotted Fever, IgM 0.25 index 0.00-0.89 Francisella tularensis Abs - 05/19/19 04 :53 Francisella tularensis IgG Negative Neg ative Francisella tularensis IgM Negative Neg ative Ehrlichia Ab Panel - 05/19/19 04:53 E. CHAFFEENSIS (HME) IGG TITER NEGATIVE NEG:<1:64 E. CHAFFEENSIS (HME) IGM TITER NEGATIVE NEG:<1:20 HGE IGG TITER NEGATIVE NEG:<1:64 HGE IGM TITER NEGATIVE NEG:<1:20 Jannet Ndn Spotted Fev,IgG - 05/19/19 04: 53 RMSF, IGG, EIA POSITIVE NEGATIVE RMSF, IGG, IFA 1:64 NEG <1:64 Jannet Ndn Spotted Fever, IgM - 05/19/19 04:53 JANNET LAN SPOTTED FEVER, IGM 0.25 INDEX 0.00-0.89 Francisella [...] Negative Urine-Blood Negative Negative Urine-Color Yellow Colorless-[place] ow Urine-Epithelial Cells 0-5/HPF Urine-Glucose Negative Negative Urine-Ketones Negative Negative Urine-Leukocytes Negative Negative Urine-Mucus 1+ Urine-Nitrite Negative Negative Urine-Other Urine Saved if Culture Need ed (48hrs from time of collection) Urine-pH 6.0 5-8.5 Urine-Protein Trace Negative Urine-RBC 0-2/HPF Urine-Specific [place] 1.015 1.000-1 .030 Urine-WBC 0-2/HPF Urobilinogen 0.2 [...] - 10/10/19 19:03 Lipase 9 U/L 7-59 Complete blood count (CBC) with automate d white blood cell (WBC) differential - 01/17/20 17:35 Blood leukocytes automated count (number/volume) 11.9 10*3/uL 4.3-11.0 Blood erythrocytes automated count (number/volume) 5.63 10*6/uL 4.35-5.85 Venous blood hemoglobin measurement (mass/volume) 15.7 g/dL 13.3-17.7 Blood hematocrit (volume fraction) 46 % 40-54 Automated erythrocyte mean corpuscular volume 81 [ foz_us] 80-99 Automated erythrocyte mean corpuscular h emoglobin (mass per erythrocyte) 28 pg 25-34 Automated erythrocyte mean corpuscular h emoglobin concentration measurement (mass/volume) 34 g/dL 32-36 Automated erythrocyte distribution width ratio 15. 2 % 10.0- 14.5 Automated blood platelet count (count/volume) 472 10*3/uL 130-400 Automated blood platelet mean volume measurement 9.6 [foz_us] 7.4-10.4 Automated blood neutrophils/100 leukocytes 68 % 42-75 Automated blood lymphocytes/100 leukocytes 16 % 12-44 Blood monocytes/100 leukocytes 10 % 0-12 Automated blood eosinophils/100 leukocytes 5 % 0-10 Automated blood basophils/100 leukocytes 1 % 0-10 Blood neutrophils automated count (number/volume) 8.1 10*3 1.8-7.8 Blood lymphocytes automated count (number/volume) 1.9 10*3 1.0-4.0 Blood monocytes automated count (number/volume) 1. 2 10*3 0.0-1.0 Automated eosinophil count 0.6 10*3/uL 0 .0-0.3 Automated blood basophil count (count/volume) 0.1 10*3/uL 0.0-0.1 Blood blood smear finding identification by light micr oscopy [facility] Comprehensive metabolic panel - 01/17/20 17:35 Serum or plasma sodium measurement (moles/volume) 140 mmol/L 135-145 Serum or plasma potassium measurement (moles/volume) 4.4 mmol/L 3.6-5.0 Serum or plasma chloride measurement (moles/volume) 103 mmol/L 98-107 Carbon dioxide 24 mmol/L 21-32 Serum or plasma anion gap determination (moles/volume) 13 mmol/L 5-14 Serum or plasma urea nitrogen measurement (mass/volume ) 18 mg/dL 7-18 Serum or plasma creatinine measurement (mass/volume) 1.24 mg/dL 0.60-1.30 Serum or plasma urea nitrogen/creatinine mass ratio 15 NRG Serum or plasma creatinine measurement w ith calculation of estimated glomerular filtration rate 59 NRG Serum or plasma glucose measurement (mass/volume) 116 mg/dL 70-105 Serum or plasma calcium measurement (mass/volume) 10.0 mg/dL 8.5-10.1 Serum or plasma total bilirubin measurement (mass/volu me) 0.2 mg/dL 0.1-1.0 Serum or plasma alkaline phosphatase javon surement (enzymatic activity/volume) 80 U/L 40-136 Serum or plasma aspartate aminotransfera se measurement (enzymatic activity/volume) 22 U/L 5-34 Serum or plasma alanine aminotransferase measurement (enzymatic activity/volume) 15 U/L 0-55 Serum or plasma protein measurement (mass/volume) 6.8 g/dL 6.4-8.2 Serum or plasma albumin measurement (mass/volume) 4.1 g/dL 3.2-4.5 CALCIUM CORRECTED 9.9 mg/dL 8.5-10.1 TROPONIN I FS - 01/17/20 17:35 TROPONIN I FS < 0.30 <0.30 PT panel in platelet poor plasma by coag ulation assay - 01/17/20 17:35 Prothrombin time (PT) in platelet poor plasma by coagu lation assay 12.2 s 12.2-14.7 INR in platelet poor plasma or blood by coagulation as say 0.9 0.8-1.4 Activated partial thromboplastin time (a PTT) in platelet poor plasma bycoagulation assay - 01/17/20 17:35 Activated partial thromboplastin time (a PTT) in platelet poor plasma bycoagulation assay 24 s 24-35 Magnesium - 01/17/20 17:35 Magnesium 2.2 mg/dL 1.6-2.4 PROBNP FS - 01/17/20 17:35 PROBNP FS 1272.0 pg/mL <75.0 Cardiac Panel - 02/01/20 21:00 CK 109 U/L 26-174 CK-MB 1.6 ng/ml 0.0-9.2 Myoglobin 114.8 ng/ml 1.6-154.9 Troponin 0.107 ng/mL 0.000-0.400 EKG - 02/01/20 22:10 EKG Complete TSH - 02/14/20 07:23 TSH 3.34 mIU/L 0.40-4.50 PT panel in platelet poor plasma by coag ulation assay - 02/20/20 19:35 Prothrombin time (PT) in platelet poor plasma by coagu lation assay 13.7 s 12.2-14.7 INR in platelet poor plasma or blood by coagulation as say 1.0 0.8-1.4 Activated partial thromboplastin time (a PTT) in platelet poor plasma bycoagulation assay - 02/20/20 19:35 Activated partial thromboplastin time (a PTT) in platelet poor plasma bycoagulation assay 26 s 24-35 Complete blood count (CBC) with automate d white blood cell (WBC) differential - 02/20/20 19:35 Blood leukocytes automated count (number/volume) 11.1 10*3/uL 4.3-11.0 Blood erythrocytes automated count (number/volume) 5.26 10*6/uL 4.35-5.85 Venous blood hemoglobin measurement (mass/volume) 14.6 g/dL 13.3-17.7 Blood hematocrit (volume fraction) 43 % 40-54 Automated erythrocyte mean corpuscular volume 82 [ foz_us] 80-99 Automated erythrocyte mean corpuscular h emoglobin (mass per erythrocyte) 28 pg 25-34 Automated erythrocyte mean corpuscular h emoglobin concentration measurement (mass/volume) 34 g/dL 32-36 Automated erythrocyte distribution width ratio 14. 6 % 10.0- 14.5 Automated blood platelet count (count/volume) 530 10*3/uL 130-400 Automated blood platelet mean volume measurement 10.1 [foz_us] 7.4-10.4 Automated blood neutrophils/100 leukocytes 64 % 42-75 Automated blood lymphocytes/100 leukocytes 20 % 12-44 Blood monocytes/100 leukocytes 11 % 0-12 Automated blood eosinophils/100 leukocytes 4 % 0-10 Automated blood basophils/100 leukocytes 1 % 0-10 Blood neutrophils automated count (number/volume) 7.0 10*3 1.8-7.8 Blood lymphocytes automated count (number/volume) 2.3 10*3 1.0-4.0 Blood monocytes automated count (number/volume) 1. 2 10*3 0.0-1.0 Automated eosinophil count 0.5 10*3/uL 0 .0-0.3 Automated blood basophil count (count/volume) 0.1 10*3/uL 0.0-0.1 Comprehensive metabolic panel - 02/20/20 19:35 Serum or plasma sodium measurement (moles/volume) 142 mmol/L 135-145 Serum or plasma potassium measurement (moles/volume) 3.8 mmol/L 3.6-5.0 Serum or plasma chloride measurement (moles/volume) 104 mmol/L 98-107 Carbon dioxide 23 mmol/L 21-32 Serum or plasma anion gap determination (moles/volume) 15 mmol/L 5-14 Serum or plasma urea nitrogen measurement (mass/volume ) 17 mg/dL 7-18 Serum or plasma creatinine measurement (mass/volume) 1.31 mg/dL 0.60-1.30 Serum or plasma urea nitrogen/creatinine mass ratio 13 NRG Serum or plasma creatinine measurement w ith calculation of estimated glomerular filtration rate 56 NRG Serum or plasma glucose measurement (mass/volume) 105 mg/dL 70-105 Serum or plasma calcium measurement (mass/volume) 9.5 mg/dL 8.5-10.1 Serum or plasma total bilirubin measurement (mass/volu me) 0.4 mg/dL 0.1-1.0 Serum or plasma alkaline phosphatase javon surement (enzymatic activity/volume) 88 U/L 40-136 Serum or plasma aspartate aminotransfera se measurement (enzymatic activity/volume) 20 U/L 5-34 Serum or plasma alanine aminotransferase measurement (enzymatic activity/volume) 14 U/L 0-55 Serum or plasma protein measurement (mass/volume) 7.0 g/dL 6.4-8.2 Serum or plasma albumin measurement (mass/volume) 4.0 g/dL 3.2-4.5 CALCIUM CORRECTED 9.5 mg/dL 8.5-10.1 Magnesium - 02/20/20 19:35 Magnesium 2.2 mg/dL 1.6-2.4 Myoglobin, serum - 02/20/20 19:35 Myoglobin, serum 219.5 ng/mL 10.0-92.0 TROPONIN I FS - 02/20/20 19:35 TROPONIN I FS < 0.30 <0.30 PROBNP FS - 02/20/20 19:35 PROBNP FS 1323.0 pg/mL <75.0 Fibrin D-dimer FEU measurement in platel et poor plasma (mass/volume) - 02/20/20 19:35 Fibrin D-dimer FEU measurement in platelet poor plasma (mass/volume) 0.39 ug/mL 0.00-0.49 Complete blood count (CBC) with automate d white blood cell (WBC) differential - 03/11/20 20:11 Blood leukocytes automated count (number/volume) 14.4 10*3/uL 4.3-11.0 Blood erythrocytes automated count (number/volume) 4.79 10*6/uL 4.35-5.85 Venous blood hemoglobin measurement (mass/volume) 13.4 g/dL 13.3-17.7 Blood hematocrit (volume fraction) 39 % 40-54 Automated erythrocyte mean corpuscular volume 82 [ foz_us] 80-99 Automated erythrocyte mean corpuscular h emoglobin (mass per erythrocyte) 28 pg 25-34 Automated erythrocyte mean corpuscular h emoglobin concentration measurement (mass/volume) 34 g/dL 32-36 Automated erythrocyte distribution width ratio 15. 7 % 10.0- 14.5 Automated blood platelet count (count/volume) 437 10*3/uL 130-400 Automated blood platelet mean volume measurement 10.1 [foz_us] 7.4-10.4 Automated blood neutrophils/100 leukocytes 83 % 42-75 Automated blood lymphocytes/100 leukocytes 7 % 12-44 Blood monocytes/100 leukocytes 9 % 0-12 Automated blood eosinophils/100 leukocytes 2 % 0-10 Automated blood basophils/100 leukocytes 0 % 0-10 Blood neutrophils automated count (number/volume) 11.9 10*3 1.8-7.8 Blood lymphocytes automated count (number/volume) 1.0 10*3 1.0-4.0 Blood monocytes automated count (number/volume) 1. 3 10*3 0.0-1.0 Automated eosinophil count 0.2 10*3/uL 0 .0-0.3 Automated blood basophil count (count/volume) 0.0 10*3/uL 0.0-0.1 Comprehensive metabolic panel - 03/11/20 20:11 Serum or plasma sodium measurement (moles/volume) 140 mmol/L 135-145 Serum or plasma potassium measurement (moles/volume) 3.5 mmol/L 3.6-5.0 Serum or plasma chloride measurement (moles/volume) 107 mmol/L 98-107 Carbon dioxide 23 mmol/L 21-32 Serum or plasma anion gap determination (moles/volume) 10 mmol/L 5-14 Serum or plasma urea nitrogen measurement (mass/volume ) 12 mg/dL 7-18 Serum or plasma creatinine measurement (mass/volume) 1.41 mg/dL 0.60-1.30 Serum or plasma urea nitrogen/creatinine mass ratio 9 NRG Serum or plasma creatinine measurement w ith calculation of estimated glomerular filtration rate 51 NRG Serum or plasma glucose measurement (mass/volume) 109 mg/dL 70-105 Serum or plasma calcium measurement (mass/volume) 8.9 mg/dL 8.5-10.1 Serum or plasma total bilirubin measurement (mass/volu me) 0.5 mg/dL 0.1-1.0 Serum or plasma alkaline phosphatase javon surement (enzymatic activity/volume) 89 U/L 40-136 Serum or plasma aspartate aminotransfera se measurement (enzymatic activity/volume) 15 U/L 5-34 Serum or plasma alanine aminotransferase measurement (enzymatic activity/volume) 14 U/L 0-55 Serum or plasma protein measurement (mass/volume) 6.2 g/dL 6.4-8.2 Serum or plasma albumin measurement (mass/volume) 3.7 g/dL 3.2-4.5 CALCIUM CORRECTED 9.1 mg/dL 8.5-10.1 PT panel in platelet poor plasma by coag ulation assay - 03/11/20 20:11 Prothrombin time (PT) in platelet poor plasma by coagu lation assay 15.4 s 12.2-14.7 INR in platelet poor plasma or blood by coagulation as say 1.2 0.8-1.4 Activated partial thromboplastin time (a PTT) in platelet poor plasma bycoagulation assay - 03/11/20 20:11 Activated partial thromboplastin time (a PTT) in platelet poor plasma bycoagulation assay 21 s 24-35 Manual absolute plasma cell count - 02/19 11/09 20:11 Blood monocytes/100 leukocytes 6 % NRG Manual blood segmented neutrophils/100 leukocytes 90 % NRG Blood band neutrophils/100 leukocytes 0 % NRG Manual blood lymphocytes/100 leukocytes 3 % NRG Manual eosinophils/100 leukocytes in nose 0 % NRG Manual blood basophils/100 leukocytes 0 % NRG Blood lymphocytes variant/100 leukocytes 1 % NRG Blood anisocytosis detection by light microscopy S LIGHT NRG Blood ovalocytes detection by light microscopy SLI GHT NRG Blood poikilocytosis detection by light microscopy MODERATE NRG Magnesium - 03/11/20 20:11 Magnesium 2.0 mg/dL 1.6-2.4 Serum or plasma troponin i.cardiac measu rement (mass/volume) - 03/11/20 20:11 Serum or plasma troponin i.cardiac measurement (mass/v olume) 0.105 ng/mL <0.028 Myoglobin, serum - 03/11/20 20:11 Myoglobin, serum 91.3 ng/mL 10.0-92.0 Encounters ACCT No. Visit Date/Time Discharge Status Pt. Type Provider Facility Loc./Unit Complaint [id number] 01/08/2017 10:09:00 Document Registration [id number] 09/24/2017 09:08:55 09/24/2017 23:59:5 9 CLS Outpatient [id number] 02/20/2020 19:28:00 22:20:00 DIS Outpatient ZAIRA DRAPER, TERESA Caal [facility] ER FS CHEST PAIN [id number] 01/17/2020 17:23:00 20:05:00 DIS Outpatient KACY MARC MD [facility] ER FS CHEST PAIN [id number] 11/09/2019 14:00:00 15:54:00 DIS Outpatient FLACO DURÁN MD [facility] ER FS CHEST PAIN [id number] 05/29/2019 13:31:00 01:57:00 DIS Emergency NELLY POST DO [facility] ER FS CHEST PAIN [id number] 04/10/2019 20:06:00 21:58:00 DIS Emergency JOSE TAVERAS DO [facility] ER FS FEELS WEAK, CHEST PAIN, SOB [id number] 03/09/2019 16:33:00 18:40:00 DIS Emergency NELLY POTS DO [facility] ER FS HIGH HEART RATE [id number] 03/01/2019 21:54:00 23:36:00 DIS Emergency LARRY DRAPER, MUNDO Lawson [facility] ER R ARM RASH [id number] 03/01/2019 11:23:00 12:17:00 DIS Outpatient ZAIRA DRAPER, TERESA Caal [facility] ER FS ABSCESS [id number] 01/06/2019 15:50:00 16:25:00 DIS Emergency POST NELLY MELCHOR [facility] ER FS POST OP WEAKNESS [id number] 10/12/2018 19:36:00 15:26:00 DIS Inpatient MARIBEL DRAPER, NIC Nguyễn [facility] ICU AFIB W RVR AND CP [id number] 10/04/2018 10:11:00 23:59:59 CLS Outpatient EMILIE BANEGAS APRN [facility] LAB I10 [id number] 10/04/2018 10:08:00 23:59:59 CLS Outpatient ERIKA DRAPER, JEOVANNY Mayo [facility] LAB SEE ORDER [id number] 09/05/2018 00:11:00 23:59:59 CLS Preadmit CARRINGTON GARAY [facility] CR3 CARDIAC REHAB P HASE III [id number] 08/05/2018 08:18:00 00:01:00 DIS Outpatient CARRINGTON GARAY [facility] CR3 CARDIAC REHAB P HASE III [id number] 08/23/2018 10:33:00 23:59:59 CLS Outpatient EMILIE BANEGAS APRN [facility] RAD ELEVATED TSH,THYROID T ENDERNESS [id number] 08/03/2018 07:26:00 00:01:00 DIS Outpatient CARRINGTON GARAY [facility] CR3 CARDIAC REHAB P HASE III [id number] 06/24/2018 12:24:00 018 23:59:59 CLS Outpatient JEOVANNY JAMES MD [facility] LAB B18.2 [id number] 02/18/2018 08:28:00 018 23:59:59 CLS Outpatient EMILIE BANEGAS APRN [facility] RAD GROIN PAIN,HERNIA [id number] 11/12/2017 11:37:00 018 23:59:59 CLS Outpatient JEOVANNY JAMES MD [facility] LAB B18.2 [id number] 11/09/2017 11:00:00 018 23:59:59 CLS Preadmit EMILIE BANEGAS APRN [facility] RAD NECK PAIN,LOW BACK PAIN [id number] 10/07/2017 08:00:00 018 23:59:59 CLS Preadmit Kitty PATTERSON MD [facility] CARD R07.9 CHEST PAIN [id number] 09/25/2017 20:08:00 018 21:54:00 DIS Emergency MAHI PANIAGUA DO [facility] ER CP [id number] 09/24/2017 04:14:00 018 16:25:00 DIS Inpatient JUAN MANUEL EVANS DO [facility] ICU A-FIB [id number] 09/01/2017 21:13:00 017 23:09:00 DIS Emergency MAHI PANIAGUA DO [facility] ER LEG CRAMPS;CHEST PAIN;B LOOD CLOTS [id number] 08/21/2017 08:27:00 017 13:45:00 DIS Inpatient JUAN MANUEL EVANS DO [facility] 4TH PE,HYPOXIA [id number] 07/14/2017 09:27:00 017 13:45:00 DIS Outpatient IMMANUEL FRANCO MD [facility] ENDO ABD. PAIN/HX DIVERTICUL ITIS [id number] 07/12/2017 05:37:00 10/23/2 017 13:22:00 DIS Outpatient JOAN DRAPER, IMMANUEL [facility] PREOP ABD. PAIN/HX DIVERTICUL ITIS [id number] 06/28/2017 20:15:00 017 21:29:00 DIS Emergency TERESA MENESES MD [facility] ER ABD PAIN/PASSING BLOOD IN STOOL [id number] 06/27/2017 19:26:00 017 22:19:00 DIS Emergency SAJAN CRUZ MD [facility] ER AB PAIN [id number] 05/13/2017 11:16:00 017 23:59:59 CLS Preadmit MARK DRAPER, NAHOMI De La Cruz [facility] RAD MASS OF SINUS [id number] 02/16/2015 22:13:00 015 12:04:00 DIS Inpatient MEGHAN DRAPER, GILES Caal [facility] CSD TACHYCARDIA [id number] 03/11/2020 20:25:00 Document Registration [id number] 11/25/2018 11:02:00 Document Registration [id number] 11/22/2017 10:40:00 Document Registration [id number] 02/18/2015 08:22:00 Document Registration [id number] 02/18/2015 08:21:00 Document Registration [id number] 02/18/2015 08:21:00 Document Registration [id number] 02/18/2015 08:21:00 Document Registration [id number] 09/20/2011 01:05:00 Document Registration [id number] 09/06/2011 00:55:00 Document Registration [id number] 04/10/2011 10:45:00 Document Registration [id number] 02/23/2011 16:44:00 Document Registration [id number] 02/21/2011 17:19:00 Document Registration [id number] 02/21/2011 08:45:00 Document Registration [id number] 02/14/2011 14:03:00 Document Registration [id number] 02/01/2011 20:31:00 Document Registration [id number] 10/29/2010 19:11:00 Document Registration [id number] 02/11/2010 06:03:00 Document Registration [id number] 05/24/2019 14:09:00 Document Registration [id number] 11/24/2018 04:35:00 09:20:00 DIS Emergency FREDERICK CASAREZ DO [facility] ER FS HEADACHE [id number] 03/06/2020 08:40:00 03/06/2020 23:59:5 9 CLS Out[facility] [id number] 02/14/2020 07:15:00 Document Registration [id number] 06/13/2019 10:15:00 Document Registration [id number] 02/20/2019 17:20:00 Document Registration [id number] 02/08/2019 14:00:00 Document Registration [id number] 05/24/2019 15:09:00 Document Registration [id number] 05/30/2019 10:10:00 Document Registration [id number] 12/21/2014 14:36:00 12/21/2014 23:59: 59 CLS Outpatient VIRGEN DOSHERRON [id number] 11/05/2014 10:03:00 11/05/2014 23:59: 59 CLS Outpatient VIRGEN DOSHERRON [id number] 11/05/2014 09:04:00 11/05/2014 23:59: 59 CLS Outpatient OLIVIA AUGUSTINE [id number] 09/27/2014 12:57:00 09/27/2014 23:59: 59 CLS Outpatient VIRGEN DOSHERRON [id number] 08/22/2014 08:19:00 08/22/2014 23:59: 59 CLS Outpatient OLIVIA AUGUSTINE [id number] 08/20/2014 11:14:00 08/20/2014 23:59: 59 CLS Outpatient VIRGEN DOSHERRON [id number] 08/20/2014 10:45:00 08/20/2014 23:59: 59 CLS Outpatient VIRGEN DOSHERRON [id number] 07/23/2014 12:53:00 07/23/2014 23:59: 59 CLS Outpatient VIRGEN DOSHERRON [id number] 07/23/2014 12:53:00 07/23/2014 23:59: 59 CLS Outpatient VIRGEN DOSHERRON [id number] 06/21/2014 11:51:00 06/21/2014 23:59: 59 CLS Outpatient VIRGEN DOSHERRON [id number] 06/20/2014 09:06:00 06/20/2014 23:59: 59 CLS Outpatient VIRGEN DOSHERRON [id number] 06/05/2014 11:28:00 06/05/2014 23:59: 59 CLS Outpatient VIRGEN DOSHERRON [id number] 05/08/2014 13:37:00 05/08/2014 23:59: 59 CLS Outpatient VIRGEN DOSHERRON [id number] 04/11/2014 12:20:00 04/11/2014 23:59: 59 CLS Outpatient VIRGEN DOSHERRON [id number] 03/12/2014 09:18:00 03/12/2014 23:59: 59 CLS Outpatient VIRGEN DOSHERRON [id number] 02/19/2014 08:24:00 02/19/2014 23:59: 59 CLS Outpatient RAFAEL E COMMERCE PROJECT MANAGERRYAN [id number] 02/13/2014 08:48:00 02/13/2014 23:59: 59 CLS Outpatient VIRGEN DOSHERRON [id number] 12/12/2013 16:22:00 12/12/2013 23:59: 59 CLS Outpatient MICHELE E COMMERCE PROJECT MANAGERBRENNEN De La Cruz [id number] 10/04/2013 09:47:00 10/04/2013 23:59: 59 CLS Outpatient MICHELE E COMMERCE PROJECT MANAGERBRENNEN De La Cruz [id number] 01/23/2013 11:08:00 01/23/2013 23:59: 59 CLS Outpatient MICHELE E COMMERCE PROJECT MANAGERBRENNEN De La Cruz [id number] 09/06/2012 10:35:00 09/06/2012 23:59: 59 CLS Outpatient MICHELE E COMMERCE PROJECT MANAGERBRENNEN De La Cruz [id number] 04/08/2012 09:14:00 04/08/2012 23:59:5 9 CLS Outpatient [id number] 01/10/2013 11:04:00 Document Registration [id number] 02/01/2020 20:08:00 02/01/2020 23:48 :00 [id number] 10/10/2019 18:31:00 10/10/2019 20:07 :00 DIS Outpatient Yanira [facility] ER [id number] 05/29/2019 12:35:00 05/29/2019 12:35: 00 DIS Outpatient Yanira Erbacon [id number] 05/27/2019 17:58:00 05/27/2019 20:50: 00 DIS Outpatient Yanira [facility] ER [id number] 05/19/2019 03:52:00 05/19/2019 06:15: [address] [facility] ER [id number] 03/20/2019 17:55:00 03/20/2019 20:08: 00 DIS Outpatient Yanira [facility] ER [id number] 02/03/2019 17:01:00 02/03/2019 19:16: 00 DIS Outpatient Yanira [facility] ER [id number] 08/05/2018 14:25:00 08/06/2018 08:30: 00 DIS Outpatient Eduardo Champagne [facility] ER [id number] 06/28/2017 21:46:00 06/29/2017 02:10: 00 DIS Outpatient ROSITA WATKINS [id number] 06/28/2017 23:55:46 Document Registration
[2020-03-11 21:19] LABS: BILIRUBIN,URINE NEGATIVE (NEGATIVE); CLARITY,URINE CLEAR; COLOR,URINE YELLOW; GLUCOSE, URINE (UA) NEGATIVE (NEGATIVE); KETONES,URINE NEGATIVE (NEGATIVE); LEUKOCYTE ESTERASE ,URINE 3+ (NEGATIVE); NITRITE,URINE NEGATIVE (NEGATIVE); PH,URINE 7.5 (5-9); PROTEIN,URINE NEGATIVE (NEGATIVE)
--- NOTE | 2020-03-11 21:24 | NUR ---
pt removing monitoring devices.
[2020-03-11 21:26] LABS: BACTERIA,URINE MODERATE /HPF; RBC,URINE RARE /HPF; SQUAMOUS EPITHELIAL CELL,UR RARE /HPF; WBC,URINE 25-50 /HPF
[2020-03-11] MEDS ORDERED: cefTRIAXone FOR IV USE 1,000 MG in WATER (STERILE) FOR INJECTION 10 ML IV ONE (21:30)
[2020-03-11 21:31] LABS: AMPHETAMINE SCREEN, URINE NEGATIVE (NEGATIVE); BARBITURATE SCREEN URINE NEGATIVE (NEGATIVE); BENZODIAZEPINES SCREEN URINE POSITIVE (NEGATIVE); CANNABINOID SCREEN, URINE NEGATIVE (NEGATIVE); COCAINE SCREEN URINE NEGATIVE (NEGATIVE); METHADONE STAT NEGATIVE (NEGATIVE); METHAMPHETAMINE SCREEN URINE S NEGATIVE (NEGATIVE); OPIATE SCREEN URINE POSITIVE (NEGATIVE); OXYCODONE STAT NEGATIVE (NEGATIVE); PROPOXYPHENE STAT NEGATIVE (NEGATIVE); TRICYCLIC ANTIDEPRESSANTS SCRE NEGATIVE (NEGATIVE)
--- NOTE | 2020-03-11 21:59 | Diagnostic Imaging Report ---
PROCEDURE: CT abdomen and pelvis without contrast. TECHNIQUE: Multiple contiguous axial images were obtained through the abdomen and pelvis without the use of intravenous contrast. Auto Exposure Controls were utilized during the CT exam to meet ALARA standards for radiation dose reduction. INDICATION: Upper abdominal pain, nausea, vomiting, weakness, chest pain EXAMINATION: CT abdomen and pelvis without contrast dated 03/11/2020 FINDINGS: The lack of contrast limits evaluation. In addition, there is marked motion artifact also limiting evaluation. There is no acute abnormality within the liver. The gallbladder appears distended. The spleen not well seen. Multiple tiny densities in the left upper quadrant noted perhaps due to splenules. 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 Pancreas is atrophied, otherwise unremarkable. Adrenal glands unremarkable. Bilateral nephrolithiasis is noted nonobstructive. No ureteral stones appreciated. There are diverticular changes throughout the colon. No obvious acute diverticulitis. No inflammatory change about the bowel loops. No free fluid or air in the abdomen or pelvis. Atherosclerotic disease is seen. Mild fat stranding in the mid mesentery is noted of uncertain etiology. Nonetheless, this is stable since the previous CT from 04/10/2011. IMPRESSION: 1. Limited evaluation as above. No obvious acute abnormality with incidental findings as noted. Dictated by: Dictated on workstation # [id number]
--- OUTSIDE RECORDS SUMMARY | 2020-03-11 22:36 | XMS REPORT | Encounter Summary ---
Author Author [facility] Organization [facility] Address Unknown Phone Unavailable Care Team Providers Care Allergist Immunologist Name Role Phone Sherman Spicer MD Unavailable Reyna Bond Unavailable Unavailable Indiana Bauer APRN PCP Unavailable Reason for Visit * Reason Comments Test/procedure PFT needed. Encounter Details Care Team Description Date Type Department Patrick Constantino RN Test/procedure (PFT needed.) 03/11/[address] [id number] Social History Date Tobacco Use Types Packs/Day [...] amio start. Pt given PFT scheduling number [phone] and advised to complete this in the [...]
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
--- OUTSIDE RECORDS SUMMARY | 2020-03-11 22:36 | XMS REPORT | Encounter Summary ---
Author Author [facility] Organization [facility] Address Unknown Phone Unavailable Care Team Providers Care Game Preserve Manager Name Role Phone Sherman Spicer MD Unavailable Reyna Bond Unavailable Unavailable Indiana Bauer APRN PCP Unavailable Encounter Details Care Team Description Date Type Department Ya Howard RN 03/06/2020 Telephone [facility] [address] [place] [address] Social History Date Tobacco Use [...]
--- OUTSIDE RECORDS SUMMARY | 2020-03-11 22:36 | XMS REPORT | Clinical Summary ---
Author Author [facility] Organization [facility] Address Unknown Phone Unavailable Care Team Providers Care Director Of Cardiac Cath Lab Name Role Phone Sherman Spicer MD Unavailable Reyna Bond Unavailable Unavailable Indiana Bauer APRN PCP Unavailable Source Comments Some departments are not documenting in the electronic medical record. If you d o not see the information that you expected, contact Release of Information in [facility] Information Management department at [phone] for further assistan ce in locating additional records.[facility] Allergies Comments Active Allergy Reactions Severity Noted [...] Medical automatic 1 each 0 02/18 Supply [facility] blood 0 pressure machine to monitor VS [...] ablation of atrial fibrillation 12/14/2018 Overview: 08/05/18 [facility] - ED pre sented with [...] Follow Up (Pt requested MPE to see [facility] room. EP consulted, RRR rounding today.) [...] Basophil Count Specimen Blood Performing Organization Address [facility] Ph one Number [facility] [address] [place] [address] * MAGNESIUM (02/23/2020 5:14 AM CDT) Only the most recent of 11 results within the time period is included. Magnesium 2.1 1.6 - 2.6 mg/dL [facility] Specimen Blood Performing Organization Address [facility] Ph one Number [facility] [address] [place] [address] * BASIC METABOLIC PANEL (02/23/2020 5:14 AM [...] >60 >60 mL/min [facility] Comment: Salvad[place] The eGFR is not validated f or use in drug dosing adjustments. Continue to use estimated creatinine clearance per dosing reference text. Please contact the Clinical Pharmacist for questions. eGFR >60 >60 mL/min [facility] Salvadorean Comment: The eGFR is not validated for use in drug dosing adjustments. Continue to use estimated creatinine clearance per dosing reference text. Please contact the Clinical Pharmacist for questions. Specimen Blood Performing Organization Address [facility] one Number [facility] [address] [place] [address] * TROPONIN-I (02/21/2020 4:45 AM CDT) Only the most recent of 9 results within the time period is included. Troponin-I 0.07 (H) 0.0 - 0.05 NG/ML [facility] Specimen Blood Performing Organization Address [facility] one Number [facility] [address] [place] [address] * PHENCYCLIDINES-URINE RANDOM (02/21/2020 3:00 AM CDT) Phencyclidine NEG NEG-NEG [facility] (PCP) Comment: RESULTS WERE OBTAINED BY IMMUNOASSAY AND ARE PRESUMPTIVE ONLY. POSITIVE INDICATES THE PRESENCE OF SUBSTANCE WITH CHARACTERISTICS SIMILAR TO DRUG-DRUG CLASS OR METABOLITE IN CONC. EQUAL TO OR EXCEEDING VALUES LISTED. PHENCYCLIDINE (PCP) 25 NG/ML Specimen Urine - Urine Narrative Performed At This result has an attachment that is n ot available. Performing Organization Address [facility] one Number [facility] [address] [place] [address] * OPIATES-URINE RANDOM (02/21/2020 3:00 AM CDT) Opiates-Urine POS (A) NEG-NEG [facility] Comment: RESULTS WERE OBTAINED BY IMMUNOASSAY AND ARE PRESUMPTIVE ONLY. POSITIVE INDICATES THE PRESENCE OF SUBSTANCE WITH CHARACTERISTICS SIMILAR TO DRUG-DRUG CLASS OR METABOLITE IN CONC. EQUAL TO OR EXCEEDING VALUES LISTED. OPIATES 2000 NG/ML Specimen Urine - Urine Performing Organization Address [facility] one Number [facility] [address] [place] [address] * COCAINE-URINE RANDOM (02/21/2020 3:00 AM CDT) Cocaine-Urine NEG NEG-NEG [facility] Comment: RESULTS WERE OBTAINED BY IMMUNOASSAY AND ARE PRESUMPTIVE ONLY. POSITIVE INDICATES THE PRESENCE OF SUBSTANCE WITH CHARACTERISTICS SIMILAR TO DRUG-DRUG CLASS OR METABOLITE IN CONC. EQUAL TO OR EXCEEDING VALUES LISTED. COCAINE 300 NG/ML Specimen Urine - Urine Performing Organization Address [facility] Ph one Number [facility] [address] [place] [address] * CANNABINOIDS-URINE RANDOM (02/21/2020 3:00 AM CDT) THC NEG NEG-NEG MAIN LAB Comment: RESULTS WERE OBTAINED BY IMMUNOASSAY AND ARE PRESUMPTIVE ONLY. POSITIVE INDICATES THE PRESENCE OF SUBSTANCE WITH CHARACTERISTICS SIMILAR TO DRUG-DRUG CLASS OR METABOLITE IN CONC. EQUAL TO OR EXCEEDING VALUES LISTED. CANNABINOIDS 50 NG/ML Specimen Urine - Urine Performing Organization [facility] Ph one Susanne FRITZ [facility] [address] [place] [address] * BENZODIAZEPINES-URINE RANDOM (02/21/2020 3:00 AM CDT) Benzodiazepines POS (A) NEG-NEG MAIN LAB Comment: RESULTS WERE OBTAINED BY IMMUNOASSAY AND ARE PRESUMPTIVE ONLY. POSITIVE INDICATES THE PRESENCE OF SUBSTANCE WITH CHARACTERISTICS SIMILAR TO DRUG-DRUG CLASS OR METABOLITE IN CONC. EQUAL TO OR EXCEEDING VALUES LISTED. BENZODIAZEPINES 200 NG/ML Specimen Urine - Urine Performing Organization Address [facility] Ph one Susanne FRITZ [facility] [address] [place] [address] * BARBITURATES-URINE RANDOM (02/21/2020 3:00 AM CDT) Barbiturates,Ur NEG NEG-NEG [facility] ine Comment: RESULTS WERE OBTAINED BY IMMUNOASSAY AND ARE PRESUMPTIVE ONLY. POSITIVE INDICATES THE PRESENCE OF SUBSTANCE WITH CHARACTERISTICS SIMILAR TO DRUG-DRUG CLASS OR METABOLITE IN CONC. EQUAL TO OR EXCEEDING VALUES LISTED. BARBITURATES 200 NG/ML Specimen Urine - Urine Performing Organization Address [facility] Ph one Susanne FRITZ [facility] [address] [place] [address] * AMPHETAMINES-URINE RANDOM (02/21/2020 3:00 AM CDT) [...] Number [facility] [address] [place] [address] * CHEST SINGLE VIEW (02/21/2020 12:37 AM [...] performance characteristics have been verified by the [facility]. Fact sheet for providers: https://www.fda.gov/media/5694 56/download Fact sheet for patients: https://www.fda.gov/media/9324 57/download Specimen Nasopharyngeal Swab Performing Organization [facility] one Number MAIN LAB [address] [place] [address] * FREE T4-FREE THYROXINE (02/20/2020 11:33 PM CDT) T4-Free 1.2 0.6 - 1.6 NG/DL MAIN LAB Specimen Performing [facility] one Number MAIN LAB [address] [place] [address] * TSH WITH FREE T4 REFLEX (02/20/2020 11:33 PM CDT) Only the most recent of 3 results within the time period is included. TSH 10.27 (H) 0.35 - 5.00 MCU/ML MAIN LAB Specimen Blood Performing [facility] one Number MAIN LAB [address] [place] [address] * PTT (APTT) (02/20/2020 11:33 PM CDT) Only the most recent of 2 results within the time period is included. APTT 32.4 24.0 - 36.5 SEC MAIN LAB Specimen Blood Performing [facility] one Number MAIN LAB [address] [place] [address] * PROTIME INR (PT) (02/20/2020 11:33 PM CDT) Only the most recent of 6 results within the time period is included. INR 1.3 (H) 0.8 - 1.2 [facility] Specimen Blood Performing Organization Address [facility] one Number [facility] [address] [place] [address] * PHOSPHORUS (02/20/2020 11:33 PM CDT) Only the most recent of 2 results within the time period is included. Phosphorus 2.7 2.0 - 4.5 MG/DL [facility] Specimen Blood Performing Organization Address [facility] one Number [facility] [address] [place] [address] * COMPREHENSIVE METABOLIC PANEL (02/20/2020 11:33 PM [...] (L) >60 mL/min [facility] Comment: [place] The eGFR is not validated f or use in drug dosing adjustments. Continue to use estimated creatinine clearance per dosing reference text. Please contact the Clinical Pharmacist for questions. eGFR >60 >60 mL/min [facility] Salv[place]orean Comment: The eGFR is not validated for use in drug dosing adjustments. Continue to use estimated creatinine clearance per dosing reference text. Please contact the Clinical Pharmacist for questions. Specimen Blood Performing Organization Address [facility] one Number [facility] [address] [place] [address] * GENERAL RAD CHEST EXTERNAL IMAGING (02/20/2020 [...] Natriuretic Peptide Specimen Blood Performing Organization Address [facility] one Number MAIN LAB [address] [place] [address] * HEMOGLOBIN A1C (02/02/2020 2:33 AM CDT) Only the most recent of 2 results within the time period is included. Hemoglobin A1C 5.6 4.0 - 6.0 % MAIN LAB Comment: The ADA recommends that most patients with type 1 and type 2 diabetes maintain an A1c level <7%. Specimen Blood Performing Organization Address [facility] one Number MAIN LAB [address] [place] [address] * LIPID PROFILE (02/02/2020 2:33 AM CDT) [...] than 130 mg/dL. Specimen Performing Organization Address [facility] Ph one Number [facility] [address] [place] [address] * TELEMETRY STRIPS-SCAN (02/02/2020 12:00 AM CDT) [...] MG/DL MAIN LAB Specimen Performing Organization Address [facility] one Number MAIN LAB [address] [place] [address] * 2D + DOPPLER ECHO (01/18/2020 9:49 [...] 34 OTHER OUTSIDE Index LAB Cardiology Siemens [id number] OTHER OUTSIDE Ultrasound LAB Machine Left Ventricle [...] 2018, EF slightly improved. Performing Organization Address [facility] one Number OTHER OUTSIDE LAB * UA REFLEX CULTURE LABEL (01/18/2020 3:50 AM CDT) UA Reflex Criteria for reflex to culture [facility] N [facility] Culture are WBC>10, Positive Nitrit e, and/or >=+1 leukocytes. If quantity is not sufficient, an addendum will follow. Specimen Urine Performing Organization Address [facility] one Number [facility] [address] [place] [address] * URINALYSIS MICROSCOPIC REFLEX TO CULTURE (01/18/2020 [...] MAIN LAB Specimen Urine Performing Organization Address [facility] Ph one Number [facility] [address] [place] [address] * URINALYSIS DIPSTICK REFLEX TO CULTURE (01/18/2020 3:50 AM CDT) Color,UA YELLOW [facility] Turbidity,UA CLEAR CLEAR-CLEAR [facility] Specific 1.019 1.003 - 1.035 [facility] [place]-Urine pH,UA 5.0 5.0 - 8.0 [facility]IN [...] Acid, UA Specimen Urine Performing Organization Address [facility] Ph one Number [facility] [address] [place] [address] * CHEST 2 VIEWS (01/17/2020 11:22 PM [...] on 01/18/2020 7:00 AM. 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
--- OUTSIDE RECORDS SUMMARY | 2020-03-11 22:36 | XMS REPORT | Encounter Summary ---
Author Author [facility] Organization [facility] Address Unknown Phone Unavailable Care Team Providers Care Filleter Name Role Phone Sherman Spicer MD Unavailable Reyna Bond Unavailable Unavailable Indiana Bauer APRN PCP Unavailable Reason for Visit * Reason Comments Follow Up unsure of reason of call, L M to c/b Encounter Details Care Team Description Date Type Department Ya Howard RN Follow Up (unsure of reason of call, LM to c/b) 03/11/2020 Telephone [facility] [address] [place] [id number] Social History Date Tobacco Use Types Packs/Day [...] out do same day. Call him at #[phone]. documented in this encounter Plan of Treatment [...]
--- OUTSIDE RECORDS SUMMARY | 2020-03-11 22:36 | XMS REPORT | Encounter Summary ---
Author Author [facility] Organization [facility] Address Unknown Phone Unavailable Care Team Providers Care Ocean Forwarder Name Role Phone Sherman Spicer MD Unavailable [...]
--- OUTSIDE RECORDS SUMMARY | 2020-03-11 22:36 | XMS REPORT | Encounter Summary ---
Author Author [facility] Organization [facility] Address Unknown Phone Unavailable Care Team Providers Care Food Preparation Supervisor Name Role Phone Sherman Spicer MD Unavailable Reyna Bond Unavailable Unavailable Indiana Bauer APRN PCP Unavailable Encounter Details Care Team Description Date Type Department Ya Howard RN 03/05/2020 Telephone [facility] [address] [place] [address] Social History Date Tobacco [...] kidneys and belly hurt. Call him at #[phone] and said to keep trying if he [...]
--- OUTSIDE RECORDS SUMMARY | 2020-03-11 22:36 | XMS REPORT | Encounter Summary ---
Author Author [facility] Organization [facility] Address Unknown Phone Unavailable Care Team Providers Care Sheet Metal Welder Name Role Phone Sherman Spicer MD Unavailable Reyna Bond Unavailable Unavailable Indiana Bauer APRN PCP Unavailable Reason for Visit * Reason Comments Medication Question pt is on HC9 Encounter Details Care Team Description Date Type Department Brandi Wolfe RN Medication Question (pt is on HC9) 02/23/2020 Telephone The [address] [address] Social History Date Tobacco Use Types Packs/Day [...] sick. He would like call back at #[phone]. documented in this encounter Plan of Treatment [...]
--- OUTSIDE RECORDS SUMMARY | 2020-03-11 22:36 | XMS REPORT | Encounter Summary ---
Author Author [facility] Organization [facility] Address Unknown Phone Unavailable Care Team Providers Care Footwear Machinery Instructor Name Role Phone Sherman Spicer MD Unavailable [...] unable to return call) 02/28/2020 Telephone The [facility] [address] [place] [address] Social History Date Tobacco Use [...] Said to call him in am at #[phone]. documented in this encounter Plan of Treatment [...]
--- OUTSIDE RECORDS SUMMARY | 2020-03-11 22:37 | XMS REPORT | Encounter Summary ---
Author Author [facility] Organization [facility] Address Unknown Phone Unavailable Care Team Providers Care Card Maker Name Role Phone Sherman Spicer MD [...]
--- OUTSIDE RECORDS SUMMARY | 2020-03-11 22:37 | XMS REPORT | Encounter Summary ---
Author Author [facility] Organization [facility] Address Unknown Phone Unavailable Care Team Providers Care Gumming Machine Operator Name Role Phone Sherman Spicer MD Unavailable Reyna Bond Unavailable Unavailable Indiana Bauer APRN PCP Unavailable Reason for Visit * Reason Comments Follow-up Phone Call Encounter Details Care Team Description Date Type Department Tsering Diehl, RN Follow-up Phone Call 02/05/2020 Telephone The [address] [place], [place] [id number] Social History Date Tobacco Use Types Packs/Day [...] 02/05/2020 4:41 PM CDT ----- Message from Mercy Carbajal LPN sent at 02/05/2020 10:03 AM CDT ----- Regarding: PATRICK NEGRETE from patient on triage line returning our call. Said that he is sorry he missed our call but was in doctors office. Call him at #[phone]. documented in this encounter Plan of Treatment [...]
--- OUTSIDE RECORDS SUMMARY | 2020-03-11 22:37 | XMS REPORT | Encounter Summary ---
Author Author [facility] Organization [facility] Address Unknown Phone Unavailable Care Team Providers Care Photo Journalist Name Role Phone Sherman Spicer MD Unavailable Reyna Bond Unavailable Unavailable Indiana Bauer APRN PCP Unavailable Reason for Visit * Reason Comments Other Encounter Details Care Team Description Date Type Department Brandi Wolfe, RN Other 02/06/2020 Telephone The [address] [place], [place] [id number] Social History Date Tobacco Use Types Packs/Day [...] to bother us. * Telephone Encounter - Bradni Wolfe RN - 02/06/2020 8:58 AM CDT [...] I'm doing is sleeping. He is at #[phone]. documented in this encounter Plan of Treatment [...]
--- OUTSIDE RECORDS SUMMARY | 2020-03-11 22:37 | XMS REPORT | Encounter Summary ---
Author Author [facility] Organization [facility] Address Unknown Phone Unavailable Care Team Providers Care Technical Developer Name Role Phone Sherman Spicer MD Unavailable Reyna Bond Unavailable Unavailable Indiana Bauer APRN PCP Unavailable Reason for Visit * Reason Comments Anticoagulation Eliquis hold Encounter Details Care Team Description Date Type Department Noemi Hernandez RN Anticoagulation (Eliquis hold ) 02/01/2020 Telephone [facility] [address] [place] [address] Social History Date Tobacco Use [...] of mesenteric thrombosis and pulm onary embolism. [id number] score of1:Hypertension He was last see in [...] if so, how long? Call him at #[phone]. documented in this encounter Plan of Treatment [...]
--- OUTSIDE RECORDS SUMMARY | 2020-03-11 22:37 | XMS REPORT | Encounter Summary ---
Author Author [facility] Organization [facility] Address Unknown Phone Unavailable Care Team Providers Care Greenhouse Specialist Name Role Phone Sherman Spicer MD Unavailable Reyna Bond Unavailable Unavailable Indiana Bauer APRN PCP Unavailable Encounter Details Care Team Description Date Type Department 02/20/2020 [facility] [address] [address] Social History Date Tobacco Use [...]
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
--- OUTSIDE RECORDS SUMMARY | 2020-03-11 22:37 | XMS REPORT | Encounter Summary ---
Author Author [facility] Organization [facility] Address Unknown Phone Unavailable Care Team Providers Care X Ray Technologist Name Role Phone Sherman Spicer MD Unavailable Reyna Bond Unavailable Unavailable Indiana Bauer APRN PCP Unavailable Reason for Visit * Reason Comments Follow-up Phone Call Encounter Details Care Team Description Date Type Department Tsering Diehl, RN Follow-up Phone Call 02/21/2020 Telephone The [address] [place], [place] [id number] Social History Date Tobacco Use Types Packs/Day [...] would like MPE approval. He is at #[phone]. documented in this encounter Plan of Treatment [...]
--- OUTSIDE RECORDS SUMMARY | 2020-03-11 22:37 | XMS REPORT | Encounter Summary ---
Author Author [facility] Organization [facility] Address Unknown Phone Unavailable Care Team Providers Care Tool Crib Manager Name Role Phone Sherman Spicer MD Unavailable StaReyna hudson Unavailable Unavailable Indiana Bauer APRN PCP Unavailable Reason for Visit * Reason Comments Tachycardia Encounter Details Care Team Description Date Type Department Patrick Constantino RN Tachycardia 01/24/2020 Telephone The [facility] [address] [place] [address] Social History Date Tobacco Use [...] is that too high. Call him at #[phone]. documented in this encounter Plan of Treatment [...]
--- OUTSIDE RECORDS SUMMARY | 2020-03-11 22:37 | XMS REPORT | Encounter Summary ---
Author Author [facility] Organization [facility] Address Unknown Phone Unavailable Care Team Providers Care Promotion Specialist Name Role Phone Sherman Spicer MD [...]
--- OUTSIDE RECORDS SUMMARY | 2020-03-11 22:38 | XMS REPORT | Encounter Summary ---
Author Author [facility] Organization [facility] Address Unknown Phone Unavailable Care Team Providers Care Chief Airline Radio Operator Name Role Phone Sherman Spicer MD Unavailable Reyna Bond Unavailable Unavailable Indiana Bauer APRN PCP Unavailable Reason for Visit * Reason Comments Other Cardiac Rehab Referral Encounter Details Care Team Description Date Type Department Rafia Snyder RN Other (Cardiac Rehab Referral) 11/07/2019 Telephone The [facility] [address] [place], [place] [address] Social History Date Tobacco Use Types Packs/Day [...] Rafia Snyder RN - 11/07/2019 4:41 PM EDGE BLACKER RN verifying that patient qualifies for cardiac rehab before calling patient dede k. Patient can also call insurance to see if he would qualify for cardiac rehab. RN called provided call back number ([phone]) and was able to LVM informing patient of the above. RN left call back number in message. Will remain availab le. GORDO Jackson. ----- Message ----- From: Mercy Carbajal LPN Sent: 11/06/2019 8:18 AM EDGE BLACKER To: Cvm Nurse Yousif Subject: MPE- referral VM from patient on triage line Wednesday at 6:10pm. He wanted to know if we had chance to see if MPE would do the heart rehab referr al for him. Call back at # [phone]. 2019 1337 - RN returning call to patient to inform him that he would need t o call rehab center first to see if he qualifies for cardiac rehab. RN attempted to contact patient twice ([phone] both times and both times received the [...] referral first? Call him back at # [phone]. BLACKER documented in this encounter Plan of Treatment [...]
--- OUTSIDE RECORDS SUMMARY | 2020-03-11 22:38 | XMS REPORT | Encounter Summary ---
Author Author [facility] Organization [facility] Address Unknown Phone Unavailable Care Team Providers Care Woods Overseer Name Role Phone Sherman Spicer MD Unavailable [...]
--- OUTSIDE RECORDS SUMMARY | 2020-03-11 22:38 | XMS REPORT | Encounter Summary ---
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 text. Please contact the Clinical Pharmacist for questions. eGFR >60 >60 mL/min K[facility] MAIN LAB [place] Comment: The eGFR is not validated for use in drug dosing adjustments. Continue to use estimated creatinine clearance per dosing reference text. Please contact the Clinical Pharmacist for questions. Specimen Blood Performing Organization Address City/[facility] Ph one Number [facility] MAIN LAB [address] [place] [address] * CBC AND DIFF (01/19/2020 4:21 AM [...] Basophil Count Specimen Blood Performing Organization Address City/[facility]/Zipcode Ph one Number KU MAIN LAB [address] [place] [address] * POC GLUCOSE (01/18/2020 8:45 PM CDT) Glucose, POC 94 70 - 100 MG/DL K[facility] MAIN LAB Specimen Performing Organization Address City/[facility] Ph one Number [place] MAIN LAB [address] [place] [address] * 2D + DOPPLER ECHO (01/18/2020 9:49 [...] 34 OTHER OUTSIDE Index LAB Cardiology Siemens [id number] OTHER OUTSIDE Ultrasound LAB Machine Left Ventricle [...] 2018, EF slightly improved. Performing Organization Address [facility] one Number OTHER OUTSIDE LAB * TROPONIN-I (01/18/2020 6:03 AM CDT) Troponin-I 0.08 (H) 0.0 - 0.05 NG/ML MAIN LAB Specimen Blood Performing Organization Address [facility] one Number MAIN LAB [address] [place] [address] * UA REFLEX CULTURE LABEL (01/18/2020 3:50 AM CDT) UA Reflex Criteria for reflex to culture [facility] Culture are WBC>10, Positive Nitrit e, and/or >=+1 leukocytes. If quantity is not sufficient, an addendum will follow. Specimen Urine Performing Organization Address [facility] one Number [facility] [address] [place] [address] * URINALYSIS MICROSCOPIC REFLEX TO CULTURE (01/18/2020 3:50 AM CDT) WBCs,UA 0-2 0 - 2 /HPF MAIN LAB RBCs,UA 0-2 0 - 3 /HPF MAIN LAB Comment,UA Criteria for reflex to culture [facility] are WBC>10, Positive Nitrite, and/or >=+1 leukocytes. If quantity is not sufficient, an addendum will follow. MucousUA 2+ MAIN LAB Specimen Urine Performing Organization Address [facility] one Number [facility] [address] [place] [address] * URINALYSIS DIPSTICK REFLEX TO CULTURE (01/18/2020 3:50 AM CDT) Color,UA YELLOW K[facility] MAIN LAB Turbidity,UA CLEAR CLEAR-CLEAR [facility] MAIN LAB Specific 1.019 1.003 - 1.035 K[facility] MAIN LAB [place]-Urine pH,UA 5.0 5.0 - 8.0 KU MAIN [...] Acid, UA Specimen Urine Performing Organization Address [facility] Ph one Number MAIN LAB [address] [place] [id number] * LIPID PROFILE (01/18/2020 3:40 AM CDT) [...] than 130 mg/dL. Specimen Performing Organization Address City/[facility] Ph one Number MAIN LAB [address] [place] [address] * MAGNESIUM (01/18/2020 3:40 AM CDT) Magnesium 2.1 1.6 - 2.6 mg/dL K[facility] MAIN LAB Specimen Blood Performing Organization Address [facility] Ph one Number KU MAIN LAB [address] [place] [address] * COMPREHENSIVE METABOLIC PANEL (01/18/2020 3:40 AM [...] >60 >60 mL/min K[facility] MAIN LAB Comment: [place] The eGFR is not validated f or use in drug dosing adjustments. Continue to use estimated creatinine clearance per dosing reference text. Please contact the Clinical Pharmacist for questions. eGFR >60 >60 mL/min K[facility] MAIN LAB [place] Comment: The eGFR is not validated for use in drug dosing adjustments. Continue to use estimated creatinine clearance per dosing reference text. Please contact the Clinical Pharmacist for questions. Specimen Blood Performing Organization Address City/State/Zipcode Ph one Number KU MAIN LAB [address] [place] [address] * CBC AND DIFF (01/18/2020 3:40 AM [...] Basophil Count Specimen Blood Performing Organization Address City/[facility] Ph one Number MAIN LAB [address] [place] [address] * TROPONIN-I (01/18/2020 2:05 AM CDT) Troponin-I 0.10 (H) 0.0 - 0.05 NG/ML MAIN LAB Specimen Blood Performing Organization Address City/[facility] Ph one Number MAIN LAB [address] [place] [address] * HEMOGLOBIN A1C (01/18/2020 12:17 AM CDT) Hemoglobin A1C 5.6 4.0 - 6.0 % MAIN LAB Comment: The ADA recommends that most patients with type 1 and type 2 diabetes maintain an A1c level <7%. Specimen Blood Performing Organization Address City/[facility] Ph one Number MAIN LAB [address] [place] [address] * TROPONIN-I (01/18/2020 12:00 AM CDT) Troponin-I 0.10 (H) 0.0 - 0.05 NG/ML MAIN LAB Specimen Blood Performing Organization Address [facility] Ph one Number MAIN LAB [address] [place] [address] * CHEST 2 VIEWS (01/17/2020 11:22 PM [...] on 01/18/2020 7:00 AM. Performing Organization Address [facility] one Number KU RAD RESULTS * TSH WITH FREE T4 REFLEX (01/17/2020 10:50 PM CDT) TSH 4.61 0.35 - 5.00 MCU/ML K[facility] MAIN LAB Specimen Blood Performing Organization Address [facility] Ph one Number KU MAIN LAB [address] [place] [address] * TROPONIN-I (01/17/2020 10:50 PM CDT) Troponin-I 0.10 (H) 0.0 - 0.05 NG/ML [facility] MAIN LAB Specimen Blood Performing Organization Address [facility] Ph one Number MAIN LAB [address] [place] [address] * BNP (B-TYPE NATRIURETIC PEPTI) (01/17/2020 10:50 PM CDT) B Type 292.0 (H) 0 - 100 PG/ML K[facility] MAIN LAB Natriuretic Peptide Specimen Blood Performing Organization Address [facility] Ph one Number KU MAIN LAB [address] [place] [address] * PHOSPHORUS (01/17/2020 10:50 PM CDT) Phosphorus 3.2 2.0 - 4.5 MG/DL KU MAIN LAB Specimen Blood Performing Organization Address [facility] Ph one Number KU MAIN LAB [address] [place] [address] * MAGNESIUM (01/17/2020 10:50 PM CDT) Magnesium 2.1 1.6 - 2.6 mg/dL K[facility] MAIN LAB Specimen Blood Performing Organization Address [facility] one Number [facility]U MAIN LAB [address] [place] [address] * COMPREHENSIVE METABOLIC PANEL (01/17/2020 10:50 PM [...] >60 >60 mL/min [facility] MAIN LAB Comment: [place] The eGFR is not validated f or use in drug dosing adjustments. Continue to use estimated creatinine clearance per dosing reference text. Please contact the Clinical Pharmacist for questions. eGFR >60 >60 mL/min [facility] MAIN LAB [place] Comment: The eGFR is not validated for use in drug dosing adjustments. Continue to use estimated creatinine clearance per dosing reference text. Please contact the Clinical Pharmacist for questions. Specimen Blood Performing Organization Address [facility] Ph one Number KU MAIN LAB [address] [place] [address] * PTT (APTT) (01/17/2020 10:50 PM CDT) APTT 31.0 24.0 - 36.5 SEC [facility] MAIN LAB Specimen Blood Performing Organization Address [facility] one Number KU MAIN LAB [address] [place] [address] * PROTIME INR (PT) (01/17/2020 10:50 PM CDT) INR 1.0 0.8 - 1.2 MAIN LAB Specimen Blood Performing Organization Address [facility] one Number [facility] MAIN LAB [address] [place] [address] * CBC AND DIFF (01/17/2020 10:50 PM [...] one Number MAIN LAB [address] [place] [address] * TELEMETRY STRIPS-SCAN (01/17/2020 12:00 AM CDT) [...] on eMAR (include date & time). Notify deep fat fry cook prior to giving next dose if: QTc increase by >15% or to >500 msec, or >550 msec in patients with ventricular conduction abnormalities or ventricular pacing. , - Two hours after all subsequent doses: record QTc on eMAR (include date & time). Notify deep fat fry cook prior to giving next dose if: QTc [...] on eMAR (include date & time). Notify deep fat fry cook prior to giving next dose if: QTc increase by >15% or to >500 msec, or >550 msec in patients with ventricular conduction abnormalities or ventricular pacing. , - Two hours after all subsequent doses: record QTc on Sybil R (include date & time). Notify deep fat fry cook prior to giving next dose if: QTc [...] on eMAR (include date & time). Notify deep fat fry cook prior to giving next dose if: QTc increase by >15% or to >500 msec, or >550 msec in patients with ventricular conduction abnormalities or ventricular pacing. , - Two hours after all subsequent doses: record QTc on eMAR (include date & time). Notify deep fat fry cook prior to giving next dose if: QTc [...] on eMAR (include date & time). Notify deep fat fry cook prior to giving next dose if: QTc increase by >15% or to >500 msec, or >550 msec in patients with ventricular conduction abnormalities or ventricular pacing. , - Two hours after all subsequent doses: record QTc on Sybil R (include date & time). Notify deep fat fry cook prior to giving next dose if: QTc [...] mEq 40 mEq, Oral, ONCE, 1 dose, [facility] 01/18/20 at 0030 01/21/2020 8:15 AM CDT 40 mEq potassium chloride SR (K-DUR) tablet 40 Given mEq 40 mEq, Oral, ONCE, 1 dose, [place] 01/21/20 at 0630, - Tablet may be [...]
--- OUTSIDE RECORDS SUMMARY | 2020-03-11 22:38 | XMS REPORT | Encounter Summary ---
Author Author [facility] Organization [facility] Address Unknown Phone Unavailable Care Team Providers Care Loan Auditor Name Role Phone Sherman Spicer MD Unavailable Reyna Bond Unavailable Unavailable Indiana Bauer APRN PCP Unavailable Encounter Details Care Team Description Date Type Department Ya Howard, RN 11/09/2019 Telephone [facility] [address] [place] [address] Social History Date Tobacco Use [...] Ya Howard RN - 11/09/2019 11:33 AM ADDICTIONS COUNSELOR ASSISTANT returned call to David he just had [...] c/b the dental office if further questions CTIONS COUNSELOR ASSISTANT * Telephone Encounter - Ya Howard RN - 11/09/2019 11:32 AM ADDICTIONS COUNSELOR ASSISTANT ----- Message from Mercy Carbajal LPN sent at 11/09/2019 11:17 AM ADDICTIONS COUNSELOR ASSISTANT ----- Regarding: MPE- cp and dizzy VM from patient on triage line. Said that he was given Anesthesia yesterday to pull all his teeth. Last night his heart pounded and today he has headache, chest pain ant is lighth eaded, dizzy. Should he to to the ED or see if it gets better?Could it be from the anesthesia? He has new # [phone]. CTIONS COUNSELOR ASSISTANT documented in this encounter Plan of Treatment [...]
--- OUTSIDE RECORDS SUMMARY | 2020-03-11 22:38 | XMS REPORT | Encounter Summary ---
Author Author [facility] Organization [facility] Address Unknown Phone Unavailable Care Team Providers Care Electronics Engineering Manager Name Role Phone Sherman Spicer MD Unavailable Reyna Bond Unavailable Unavailable Indiana Bauer APRN PCP Unavailable Reason for Visit * Reason Comments Follow-up Phone Call returned call, lm to c/b Encounter Details Care Team Description Date Type Department Ya Howard RN Follow-up Phone Call (returned call, to c/b) 01/05/[address] [place] [address] Social History Date Tobacco Use Types Packs/Day [...] has a heart question. Call him at #[phone]. documented in this encounter Plan of Treatment [...]
--- OUTSIDE RECORDS SUMMARY | 2020-03-11 22:38 | XMS REPORT | Encounter Summary ---
Author Author [facility] Organization [facility] Address Unknown Phone Unavailable Care Team Providers Care Molder Feeder Name Role Phone Sherman Spicer MD Unavailable [...] consulted, RRR rounding today.) 01/18/2020 Telephone [facility] [address] [place] [address] Social History Date Tobacco Use [...] by and see him. He is at #[phone]. documented in this encounter Plan of Treatment [...]
--- OUTSIDE RECORDS SUMMARY | 2020-03-11 22:38 | XMS REPORT | Encounter Summary ---
Author Author [facility] Organization [facility] Address Unknown Phone Unavailable Care Team Providers Care Kiln Charger Name Role Phone Sherman Spicer MD Unavailable Reyna Bond Unavailable Unavailable Indiana Bauer APRN PCP Unavailable Encounter Details Care Team Description Date Type Department 01/17/2020 [facility] [address] [address] Social History Date Tobacco Use [...] stomach. 02/02/2020 vit A-vit Take 2 0 Q-bvlyeg-ibxa-copper tablets by ([id number](VIT mouth daily. A,C-BIOTIN)) 2,500 unit-100 mg-2,500 mcg [...]
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
--- OUTSIDE RECORDS SUMMARY | 2020-03-11 22:39 | XMS REPORT | Encounter Summary ---
Author Author [facility] Organization [facility] Address Unknown Phone Unavailable Care Team Providers Care Feed Crusher Name Role Phone Sherman Spicer MD Unavailable Reyna Bond Unavailable Unavailable Indiana Bauer APRN PCP Unavailable Reason for Visit * Reason Comments Follow Up left before being seen 10/16 Encounter Details Care Team Description Date Type Department Rafia Snyder RN Follow Up (left before being seen 020) 10/18/[address] [place] [address] Social History Date Tobacco Use Types Packs/Day [...] Rafia Snyder RN - 10/30/2019 12:59 PM SAFETY RELIEF VALVE TECHNICIAN RN reaching out to patient informing him [...] female pts as this is sponsored by [employer]. Unfortunately he will not qualify for it. Digital BP m onitors range from $50-90. I am not aware of a company that sells refurbished BP either. This is not identified as a DME so unfortunately, insurance will not co ozile this. Regarding cardiac rehab, I reviewed his history but I didn't see a qualifying dx for cardiac rehab. No recent RI, stents, valve repairs, or EF <35. Let me know if you have any questions. Thank you, -AL Routing comment You Constantine Perry RN 3 days ago Do we know where a patient could get a discounted or free blood pressure cuff to use at home? Routing comment TY RELIEF VALVE TECHNICIAN * Addendum Note - Aljeandra Greene RN - 10/26/2019 10:30 AM SAFETY RELIEF VALVE TECHNICIAN Addended by: ALEJANDRA GREENE on: 10/26/2019 10:30 AM Modules accepted: Orders TY RELIEF VALVE TECHNICIAN * Telephone Encounter - Alejandra Greene RN - 10/26/2019 10:04 AM SAFETY RELIEF VALVE TECHNICIAN MPE- monitor Received: Today Call patient Message Contents Mercy Carbajal LPN P Cvm Nurse Yousif NEGRETE from patient on triage line at 4:49pm yesterday. Said that we were going to try and get b/p and pulse monitor for him. Any luck in finding them? He is at # [phone]. 10/26/2019 10:04 AM: Pt is asking for a referral to cardiac rehab at [facility]. I informed him that there [...] Fahad. I li stened to his frustrations. TY RELIEF VALVE TECHNICIAN * Telephone Encounter - Rafia Snyder RN - 10/18/2019 1:34 PM SAFETY RELIEF VALVE TECHNICIAN RN called number listed in chart for patient ([phone]) and mobile number li sted for son of patient (Kota [phone]) were both disconnected. RN attempt ed to call home number listed for son ([place]ota [phone]) and that number was also disconnected. RN called [facility] and spoke with GORDO Og wh o stated that patient is on the schedule for procedure (full mouth extraction) o n 10/25/2019. RN informed Lenka that patient did not necessarily need to be seen b y MPE before procedure but that RN needed to speak with patient. Lenka provided phone number for the patient that RN had already attempted ([phone]) which is disconnected. RN to send letter to patient requesting that he contact our off ice [facility] to discuss potential discontinuation of Eliquis and possibly initiation of Lisinopril. Lenka was provided EP jack tamp operator Line phone number and had no fur ther questions at this time. RN will send no contact letter to patient address o n file. Will remain available. GORDO Jackson. ----- Message from Cecy He RN sent at 10/17/2019 7:29 AM SAFETY RELIEF VALVE TECHNICIAN ----- Regarding: call patient? Per his recommendations [...] NEGRETE on triage line from Lenka with [facility] # [phone]. Said that they are just now going to do surgery and had CC from us but patient t old them that he had test with dye. Anesthesia would like results of test and new CC faxed to them at # [phone] . Said that they had faxed form to us on 10-10-19. 10/18/2019 1434 - RN called phone number provided by GORDO Og with [facility]. Phone number provided for patient was [phone]. RN was able to s peak with [...] cardiac authorization/recommendation (clearance) and will fax to [facility]. Will remain available. GORDO Jackson. E- RTC for Rafia Received: Today Message Contents Mercy Carbajal LPN P Cvm Nurse Ep PENELOPE from [place] with [facility] # [phone] returning our call. Said that they have phone # [phone] for patient and she called and got VM. She left message that we are trying to get a hold of him. TY RELIEF VALVE TECHNICIAN documented in this encounter Plan of [...]
--- OUTSIDE RECORDS SUMMARY | 2020-03-11 22:39 | XMS REPORT | Encounter Summary ---
Author Author [facility] Organization [facility] Address Unknown Phone Unavailable Care Team Providers Care Insurance Legal Assistant Name Role Phone Sherman Spicer MD Unavailable Reyna Bond Unavailable Unavailable Indiana Bauer APRN PCP Unavailable Reason for Visit * Reason Comments Cardiac Clearance full mouth teeth extraction Encounter Details Care Team Description Date Type Department Rafia Snyder RN Cardiac Clearance (full mouth teeth extr action ) 09/26/[address] [id number] Social History Date Tobacco Use Types Packs/Day [...] Rafia Snyder RN - 09/26/2019 8:49 AM X RAY NURSE RN called [facility] fax [phone]) after provider signed surgery risk assessment form that was faxed to [facility] on 09/21/2019. RN was informed by GORDO Reza that patient has cancelled his proce dure scheduled for 09/27/2019 and has not rescheduled. Libia asked that RN go arlette bee and fax surgery risk assessment form to [facility] so that if needed they can forward on cardiac assessment to Dr. Colon's of [facility]. RN to fax cardiac assessment and recommendation form to provided fax jean-pierre norwood [phone]. Patient scheduled for full mouth teeth extraction [...] able. GORDO Jackson. Dr. Yasir Colon (dentist) [facility] Of [address] [address] [facility], [address] [address] X RAY NURSE documented in this encounter Plan of Treatment [...]
--- OUTSIDE RECORDS SUMMARY | 2020-03-11 22:39 | XMS REPORT | Encounter Summary ---
Author Author [facility] Organization [facility] Address Unknown Phone Unavailable Care Team Providers Care Testing Machine Operator Name Role Phone Sherman Spicer MD Unavailable Reyna Bond Unavailable Unavailable Indiana Bauer APRN PCP Unavailable Reason for Referral * CTA Procedure (Routine) Referred By Contact Referred To Contact Status Reason Specialty Diagnoses / Procedures Kelby Rodriguez MD [address] [address] [address] New Request Radiology Diagnoses S/P ablation of atrial fibrillation Paroxysmal atrial fibrillation (HCC) Essential hypertension Acute pericarditis, unspecified type P rocedures CT CARDIAC STRUCTURE WO/W CONT * CTA Procedure (Routine) Referred By Contact Referred To Contact Status Reason Specialty Diagnoses / Procedures Kelby Rodriguez MD [address] [address] New Request Radiology Diagnoses S/P ablation of atrial fibrillation Paroxysmal atrial fibrillation (HCC) Essential hypertension Acute pericarditis, unspecified type P rocedures CT LMTD CHEST W CARDIAC Encounter Details Care Team Description Date Type Department Ya Howard RN 10/11/2019 Telephone [facility] [address] [place] [address] Social History Date Tobacco Use Types Packs/Day [...] Rafia Snyder RN - 10/12/2019 2:48 PM PARTNER MANAGER Addended by: RAFIA SNYDER on: 10/12/2019 02:48 PM Modules accepted: Orders NER MANAGER * Telephone Encounter - Rafia Snyder RN - 10/12/2019 2:46 PM PARTNER MANAGER RN received notification from pre certification that 3 month post ablation CCTA denied. RN reordered CCTA with appropriate diagnoses associated. RN to reach dede k out to pre certification team to verify that CCTA will be covered/is still pedro eduled for 10/16/2019. Will remain available. GORDO Jackson. NER MANAGER * Telephone Encounter - Ya Howard RN - 10/11/2019 3:52 PM PARTNER MANAGER returned call to David. left message that he should be done around 1 pm however, did stress that this is an estimate. offered that we could call his ride when he is close to finishing if that would help asked him to cb if further questions NER MANAGER * Telephone Encounter - Ya Howard RN - 10/11/2019 3:52 PM PARTNER MANAGER ----- Message from Mercy Carbajal LPN sent at 10/11/2019 12:27 PM PARTNER MANAGER ----- Regarding: MPE- RTC- he wanted to know how long his appointment will take on Wed. He is having to get a ride and needs to know. He is at # [phone]. NER MANAGER documented in this encounter Plan of [...]
--- OUTSIDE RECORDS SUMMARY | 2020-03-11 22:39 | XMS REPORT | Encounter Summary ---
Author Author [facility] Organization [facility] Address Unknown Phone Unavailable Care Team Providers Care Network Technician Name Role Phone Sherman Spicer MD Unavailable Reyna Bond Unavailable Unavailable Indiana Bauer APRN PCP Unavailable Reason for Visit * Reason Comments Other post ablation ct canceled i nsurance denied Encounter Details Care Team Description Date Type Department Sally Rendon RN Other (post ablation ct canceled insuran ce denied) 10/13/2019 Telephone [facility] [address] [address] Social History Date Tobacco Use [...] Sally Rendon RN - 10/13/2019 7:51 AM 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 ----- Message ----- From: Sally Rendon RN Sent: 10/12/2019 2:39 PM ROLLED OATS MILL OPERATOR To: Rafia Snyder RN Subject: RE: CTA denied They just said insurance would not cover it?? ----- Message ----- From: Rafia Snyder RN Sent: 10/12/2019 1:48 PM ROLLED OATS MILL OPERATOR To: Sally Rendon RN Subject: RE: CTA denied Yes, his CT is for post ablation. I will review with MPE and get back to you. An y particular reason CT was denied? ----- Message ----- From: Cecy He RN Sent: 10/12/2019 1:20 PM ROLLED OATS MILL OPERATOR To: Rafia Snyder RN Subject: FW: CTA denied ----- Message ----- From: Sally Rendon RN Sent: 10/12/2019 12:39 PM ROLLED OATS MILL OPERATOR To: Cv Nurse Ep Subject: CTA denied Just wanted to let you know insurance denied ct. Looks like pre cert was [facility]. I see that he is post ablation, does he need ct? Pt is coming 10/16 Mo nday for OV and ct ED OATS MILL OPERATOR documented in this encounter Plan of Treatment [...]
[2020-03-11] MEDS ORDERED: PROMETHAZINE INJ 25 MG/ML (PHENERGAN) AMP IV PRN (22:45)
--- OUTSIDE RECORDS SUMMARY | 2020-03-11 23:05 | XMS REPORT | Continuity of Care Document ---
Demographics Preferred Language Unknown Marital Status Unknown Protestant Affiliation Unknown Race Unknown Ethnic Group Unknown [...] N/A 11/20/2014 Yes No Known Drug Allergies [id number] Drug Allergy Unknown N/A 11/24/2018 Yes No Known Drug Allergies [id number] Drug Allergy Unknown N/A 03/01/2019 Medications Medication [...] DO, SHERRON K 784.0 headache 04/26/2008 MADVanessa REAL ESTATE OPERATIONS MANAGER, RYAN L 784 .0 headache 04/26/2008 [...] DO, SHERRON K 784.0 headache 04/26/2008 [employer] SUPERVISOR, OLIVIA M 784.0 headache 04/26/2008 VIRGEN DO, SHERRON K 784.0 headache 04/26/2008 VIRGEN DO, SHERRON K 784.0 headache 04/26/2008 [employer] SUPERVISOR, OLIVIA M 784.0 headache 04/26/2008 VIRGEN DO, [...] ROGERS BRENNEN ZAMORANO 285.9 ANEMIA 07/04/2008 MICHELE REAL ESTATE OPERATIONS MANAGER, BRENNEN JAUN 536.8 Dyspepsia 07/04/2008 MICHELE REAL ESTATE OPERATIONS MANAGER, BRENNEN JAUN 285.9 ANEMIA 07/04/2008 MICHELE REAL ESTATE OPERATIONS MANAGER, BRENNEN ZAMORANO 536.8 Dyspepsia 07/04/2008 VIRGEN DO, SHERRON K 285.9 ANEMIA 07/04/2008 VIRGEN DO, SHERRON K 536.8 Dyspepsia 07/04/2008 MADL REAL ESTATE OPERATIONS MANAGER, RYAN L 285 .9 ANEMIA 07/04/2008 MADL REAL ESTATE OPERATIONS MANAGER, RYAN L 536 .8 Dyspepsia 07/04/2008 [...] DO, SHERRON K 536.8 Dyspepsia 07/04/2008 [employer] SUPERVISOR, OLIVIA M 285.9 ANEMIA 07/04/2008 [employer] SUPERVISOR, OLIVIA M 536.8 Dyspepsia 07/04/2008 VIRGEN DO, SHERRON K 285.9 ANEMIA 07/04/2008 VIRGEN DO, SHERRON K 536.8 Dyspepsia 09/04/2008 528.9 Mout h Pain 09/04/2008 MICHELE REAL ESTATE OPERATIONS MANAGER, BRENNEN LEPEH 528.9 Mouth Pain 09/04/2008 528.9 Mout h Pain 09/04/2008 MICHELE REAL ESTATE OPERATIONS MANAGER, BRENNEN JAUN 528.9 Mouth Pain 09/04/2008 MICHELE REAL ESTATE OPERATIONS MANAGER, BRENNEN JAUN 528.9 Mouth Pain 09/04/2008 MICHELE REAL ESTATE OPERATIONS MANAGER, BRENNEN JAUN 528.9 Mouth Pain 09/04/2008 VIRGEN DO, SHERRON K 528.9 Mouth Pain 09/04/2008 MADL REAL ESTATE OPERATIONS MANAGER, RYAN L 528 .9 Mouth Pain [...] SHERRON K 528.9 Mouth Pain 09/04/2008 [employer] SUPERVISOR, OLIVIA M 528.9 Mouth Pain 09/04/2008 VIRGEN DO, SHERRON K 528.9 Mouth Pain 09/04/2008 VIRGEN DO, SHERRON K 528.9 Mouth Pain 09/04/2008 OLIVIA AUGUSTINE 528.9 Mouth Pain 09/04/2008 VIRGEN DO, SHERRON K 528.9 Mouth Pain 01/23/2009 302.72 MAL E ERECTILE DISORDER 01/23/2009 780.79 fee ling tired or poorly 01/23/2009 MICHELE REAL ESTATE OPERATIONS MANAGER, BRENNEN ZAMORANO 302.72 MALE ERECTILE DISORDER 01/23/2009 MICHELE REAL ESTATE OPERATIONS MANAGER, BRENNEN ZAMORANO 780.79 feeling tired or poorly 01/23/2009 302.72 MAL E ERECTILE DISORDER 01/23/2009 780.79 fee ling tired or poorly 01/23/2009 MICHELE REAL ESTATE OPERATIONS MANAGER, BRENNEN ZAMORANO 302.72 MALE ERECTILE DISORDER 01/23/2009 MICHELE REAL ESTATE OPERATIONS MANAGER, BRENNEN ZAMORANO 780.79 feeling tired or poorly 01/23/2009 MICHELE REAL ESTATE OPERATIONS MANAGER, BRENNEN ZAMORANO 302.72 MALE ERECTILE DISORDER 01/23/2009 MICHELE REAL ESTATE OPERATIONS MANAGER, BRENNEN ZAMORANO 780.79 feeling tired or poorly 01/23/2009 MICHELE REAL ESTATE OPERATIONS MANAGER, BRENNEN ZMAORANO 302.72 MALE ERECTILE DISORDER 01/23/2009 MICHELE REAL ESTATE OPERATIONS MANAGER, BRENNEN ZAMORANO 780.79 feeling tired or poorly 01/23/2009 VIRGEN DO, SHERRON K 302.72 MALE ERECTILE DISORDER 01/23/2009 VIRGEN DO, SHERRON K 780.79 feeling tired or poorly 01/23/2009 MADL REAL ESTATE OPERATIONS MANAGER, RYAN L 302 .72 MALE ERECTILE DISORDER 01/23/2009 MADL REAL ESTATE OPERATIONS MANAGER, RYAN L 780 .79 feeling tired [...] 03/06/2009 789.00 Abd ominal Pain 03/06/2009 MICHELE REAL ESTATE OPERATIONS MANAGER, BRENNEN ZAMORANO 789.00 Abdominal Pain 03/06/2009 [...] SUE BRENNEN ZAMORANO 307.40 INSOMNIA 06/13/2009 MICHELE REAL ESTATE OPERATIONS MANAGER, BRENNEN ZAMORANO V04.81 FLU SHOT 06/13/2009 307.40 INS OMNIA 06/13/2009 V04.81 FLU SHOT 06/13/2009 MICHELE REAL ESTATE OPERATIONS MANAGER, BRENNEN ZAMORANO 307.40 INSOMNIA 06/13/2009 MICHELE REAL ESTATE OPERATIONS MANAGER, BRENNEN ZAMORANO V04.81 FLU SHOT 06/13/2009 MICHELE REAL ESTATE OPERATIONS MANAGER, BRENNEN ZAMORANO 307.40 INSOMNIA 06/13/2009 MICHELE REAL ESTATE OPERATIONS MANAGER, BRENNEN ZAMORANO V04.81 FLU SHOT 06/13/2009 MICHELE REAL ESTATE OPERATIONS MANAGER, BRENNEN ZAMORANO 307.40 INSOMNIA 06/13/2009 MICHELE REAL ESTATE OPERATIONS MANAGER, BRENNEN ZAMORANO V04.81 FLU SHOT 06/13/2009 VIRGEN DO, SHERRON K 307.40 INSOMNIA 06/13/2009 VIRGEN DO, SHERRON K V04.81 FLU SHOT 06/13/2009 MADL REAL ESTATE OPERATIONS MANAGER, RYAN L 307 .40 INSOMNIA 06/13/2009 MADL REAL ESTATE OPERATIONS MANAGER, RYAN L V04 .81 FLU SHOT [...] SHERRON K 307.40 INSOMNIA 06/13/2009 VIRGEN DO, SHRERON K V04.81 FLU SHOT 06/13/2009 VIRGEN DO, [...] 09/11/2009 847.9 Spra in Back 09/11/2009 MICHELE REAL ESTATE OPERATIONS MANAGER, BRENNEN LEPEH 728.85 Muscle Spasm 09/11/2009 MICHELE REAL ESTATE OPERATIONS MANAGER, BRENNEN ZAMORANO 847.9 Sprain Back 09/11/2009 MICHELE REAL ESTATE OPERATIONS MANAGER, BRENNEN LEPEH 728.85 Muscle Spasm 09/11/2009 MICHELE REAL ESTATE OPERATIONS MANAGER, BRENNEN ZAMORANO 847.9 Sprain Back 09/11/2009 MICHELE REAL ESTATE OPERATIONS MANAGER, BRENNEN ZAMORANO 728.85 Muscle Spasm 09/11/2009 MICHELE REAL ESTATE OPERATIONS MANAGER, BRENNEN ZAMORANO 847.9 Sprain Back 09/11/2009 VIRGEN DO, SHERRON K 728.85 Muscle Spasm 09/11/2009 VIRGEN DO, SHERRON K 847.9 Sprain Back 09/11/2009 MADL REAL ESTATE OPERATIONS MANAGER, RYAN L 728 .85 Muscle Spasm 09/11/2009 MADL REAL ESTATE OPERATIONS MANAGER, RYAN L 847 .9 Sprain Back 09/11/2009 VIRGEN DO, SHERRON K 728.85 Muscle Spasm 09/11/2009 VIRGEN DO, SHERRON K 847.9 Sprain Back 09/11/2009 VIRGEN DO, SHERRON K 728.85 Muscle Spasm 09/11/2009 IVRGEN DO, SHERRON K 847.9 Sprain Back 09/11/2009 VRIGEN DO, SHERRON K 728.85 Muscle Spasm 09/11/2009 [...] DO, SHERRON K 728.85 Muscle Spasm 09/11/2009 VIREGN DO, SHERRON K 847.9 Sprain Back 09/11/2009 [...] 10/23/2009 NODX No Di agnosis 10/23/2009 MICHELE REAL ESTATE OPERATIONS MANAGERBRENNEN NODX No Diagnosis 10/23/2009 NODX No Di agnosis 10/23/2009 MICHELE REAL ESTATE OPERATIONS MANAGERBRENNEN NODX No Diagnosis 10/23/2009 MICHELE REAL ESTATE OPERATIONS MANAGERBRENNEN NODX No Diagnosis 10/23/2009 MICHELE REAL ESTATE OPERATIONS MANAGERBRENNEN NODX No Diagnosis 10/23/2009 VIRGEN DO, SHERRON K NODX No Diagnosis 10/23/2009 RAFAEL REAL ESTATE OPERATIONS MANAGER, RYAN Mendez NOD X No Diagnosis [...] SHERRON K NODX No Diagnosis 10/23/2009 [employer] SUPERVISOR, OLIVIA M N ODX No Diagnosis 10/23/2009 VIRGEN DO, SHERRON K NODX No Diagnosis 10/23/2009 VIRGEN DO, SHERRON K NODX No Diagnosis 10/23/2009 [employer] SUPERVISOR, OLIVIA M N ODX No Diagnosis 10/23/2009 [...] N IN JOINT, SITE UNSPECIFIED 05/09/2010 MICHELE REAL ESTATE OPERATIONS MANAGER, BRENNEN ZAMORANO 719.40 PAIN IN JOINT, SITE UNSPECIFIED 05/09/2010 719.40 JOLIE N IN JOINT, SITE UNSPECIFIED 05/09/2010 MICHELE REAL ESTATE OPERATIONS MANAGER, BRENNEN ZAMORANO 719.40 PAIN IN JOINT, SITE UNSPECIFIED 05/09/2010 MICHELE REAL ESTATE OPERATIONS MANAGER, BRENNEN ZAMORANO 719.40 PAIN IN JOINT, SITE UNSPECIFIED 05/09/2010 MICHELE REAL ESTATE OPERATIONS MANAGER, BRENNEN ZAMORANO 719.40 PAIN IN JOINT, [...] PAIN IN JOINT, SITE UNSPECIFIED 05/09/2010 [employer] SUPERVISOR, OLIVIA M 719.40 PAIN IN JOINT, SITE UNSPECIFIED 05/09/2010 VIRGEN DO, SHERRON K 719.40 PAIN IN JOINT, SITE UNSPECIFIED 06/13/2010 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 06/13/2010 MICHELE REAL ESTATE OPERATIONS MANAGER, BRENNEN JAUN 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.] 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 07/22/2010 MICHELE REAL ESTATE OPERATIONS MANAGER, BRENNEN JAUN 300.02 AN GEN ANXIETY 07/22/2010 MICHELE REAL ESTATE OPERATIONS MANAGER, BRENNEN JAUN 301.9 PD PERS DIS NOS 07/22/2010 MICHELE SUE BRENNEN JAUN 309.81 AN PTSD 07/22/2010 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 07/22/2010 300.02 AN GEN ANXIETY 07/22/2010 301.9 PD P ERS DIS NOS 07/22/2010 309.81 AN PTSD 07/22/2010 MICHELE REAL ESTATE OPERATIONS MANAGER, BRENNEN ZAMORANO 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 07/22/2010 MICHELE REAL ESTATE OPERATIONS MANAGER, BRENNEN JAUN 300.02 AN GEN ANXIETY 07/22/2010 MICHELE SUE BRENNEN AJUN 301.9 PD PERS DIS NOS 07/22/2010 MICHELE SUE BRENNEN JAUN 309.81 AN PTSD 07/22/2010 MICHELE REAL ESTATE OPERATIONS MANAGER, BRENNEN JAUN 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 07/22/2010 MICHELE REAL ESTATE OPERATIONS MANAGER, BRENNEN JAUN 300.02 AN GEN ANXIETY 07/22/2010 MICHELE REAL ESTATE OPERATIONS MANAGER, BRENNEN JAUN 301.9 PD PERS DIS NOS 07/22/2010 MICHELE REAL ESTATE OPERATIONS MANAGER, BRENNEN JAUN 309.81 AN PTSD 07/22/2010 MICHELE SUE BRENNEN JAUN 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 07/22/2010 MICHELE SUE BRENNEN JAUN 300.02 AN GEN ANXIETY 07/22/2010 MICHELE REAL ESTATE OPERATIONS MANAGER, BRENNEN JAUN 301.9 PD PERS DIS NOS 07/22/2010 BRENNEN MICHELE APRN 309.81 AN PTSD 07/22/2010 VIRGEN DO, SHERRON K 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 07/22/2010 VIRGEN DO, SHERRON K 300.02 AN GEN ANXIETY 07/22/2010 VIRGEN DO, SHERRON K 301.9 PD PERS DIS NOS 07/22/2010 VIRGEN DO, SHERRON K 309.81 AN PTSD 07/22/2010 MADL REAL ESTATE OPERATIONS MANAGER, RYAN L 295 .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 07/22/2010 MADL REAL ESTATE OPERATIONS MANAGER, RYAN L 300 .02 AN GEN ANXIETY 07/22/2010 MADL REAL ESTATE OPERATIONS MANAGER, RYAN L 301 .9 PD PERS DIS NOS 07/22/2010 MADL REAL ESTATE OPERATIONS MANAGER, RYAN L 309 .81 AN PTSD [...] K 309.81 AN PTSD 07/22/2010 VIRGEN DO, HSERRON K 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 07/22/2010 [...] SHERRON K 309.81 AN PTSD 07/22/2010 [employer] SUPERVISOROLIVIA M 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 07/22/2010 [employer] SUPERVISOR, OLIVIA M 300.02 AN GEN ANXIETY 07/22/2010 [employer] SUPERVISOR, OLIVIA M 301.9 PD PERS DIS NOS 07/22/2010 [employer] SUPERVISOR, OLIVIA M 309.81 AN PTSD 07/22/2010 VIRGEN [...] SHERRON K 309.81 AN PTSD 07/22/2010 [employer] SUPERVISOR, OLIVIA M 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 07/22/2010 [employer] SUPERVISOR, OLIVIA M 300.02 AN GEN ANXIETY 07/22/2010 [employer] SUPERVISOR, OLIVIA M 301.9 PD PERS DIS NOS 07/22/2010 [employer] SUPERVISOR, OLIVIA M 309.81 AN PTSD 07/22/2010 VIRGEN [...] Of Skin And Subcutaneous Tissue 12/17/2010 MADL REAL ESTATE OPERATIONS MANAGER, RYAN L 562 .10 Diverticulosis Of Colon (without Hemorrhage) 12/17/2010 MADL REAL ESTATE OPERATIONS MANAGER, RYAN L 709 .9 Unspecified Disorder [...] And Abscess Of Unspecified Sites 02/23/2011 MICHELE REAL ESTATE OPERATIONS MANAGER, BRENNEN ZAMORANO 452 Portal Vein Thrombosis 02/23/2011 MICHELE REAL ESTATE OPERATIONS MANAGER, BRENNEN ZAMORANO 682.9 Cellulitis And Abscess Of Unspecified Sites 02/23/2011 452 Portal Vein Thrombosis 02/23/2011 682.9 Cell ulitis And Abscess Of Unspecified Sites 02/23/2011 MICHELE REAL ESTATE OPERATIONS MANAGER, BRENNEN ZAMORANO 452 Portal Vein Thrombosis 02/23/2011 MICHELE REAL ESTATE OPERATIONS MANAGER, BRENNEN ZAMORANO 682.9 Cellulitis And Abscess Of Unspecified Sites 02/23/2011 MICHELE REAL ESTATE OPERATIONS MANAGER, BRENNEN ZAMROANO 452 Portal Vein Thrombosis 02/23/2011 MICHELE REAL ESTATE OPERATIONS MANAGER, BRENNEN ZAMORANO 682.9 Cellulitis And Abscess Of Unspecified Sites 02/23/2011 MICHELE REAL ESTATE OPERATIONS MANAGER, BRENNEN ZAMORANO 45Joseph Portal Vein Thrombosis 02/23/2011 MICHELE REAL ESTATE OPERATIONS MANAGER, BRENNEN ZAMORANO 682.9 Cellulitis And Abscess Of Unspecified Sites 02/23/2011 VIRGEN DO, SHERRON K 452 Portal Vein Thrombosis 02/23/2011 VIRGEN DO, SHERRON K 682.9 Cellulitis And Abscess Of Unspecified Sites 02/23/2011 MADL REAL ESTATE OPERATIONS MANAGER, RYAN L 452 Portal Vein Thrombosis 02/23/2011 MADL REAL ESTATE OPERATIONS MANAGER, RYAN L 682 .9 Cellulitis And [...] Removal Of Nonsurgical Wound Dressing 02/24/2011 MICHELE REAL ESTATE OPERATIONS MANAGER, BRENNEN ZAMORANO 780.50 SLEEP DISTURBANCE, UNSPECIFIED 02/24/2011 MICHELE REAL ESTATE OPERATIONS MANAGER, BRENNEN ZAMORANO V58.30 Encounter For Change Or Removal Of Nonsurgical Wound D ressing 02/24/2011 MICHELE REAL ESTATE OPERATIONS MANAGER, BRENNEN ZAMORANO 780.50 SLEEP DISTURBANCE, UNSPECIFIED 02/24/2011 MICHELE REAL ESTATE OPERATIONS MANAGER, BRENNEN ZAMORANO V58.30 Encounter For Change Or Removal Of Nonsurgical Wound D ressing 02/24/2011 MICHELE REAL ESTATE OPERATIONS MANAGER, BRENNEN ZAMORANO 780.50 SLEEP DISTURBANCE, UNSPECIFIED 02/24/2011 MICHEEL REAL ESTATE OPERATIONS MANAGER, BRENNEN ZAMORANO V58.30 Encounter For Change Or Removal Of Nonsurgical Wound D ressing 02/24/2011 VIRGEN DO, SHERRON K 780.50 SLEEP DISTURBANCE, UNSPECIFIED 02/24/2011 VIRGEN DO, SHERRON K V58.30 Encounter For Change Or Removal Of Nonsurgical Wound Dressing 02/24/2011 MADL REAL ESTATE OPERATIONS MANAGER, RYAN L 780 .50 SLEEP DISTURBANCE, UNSPECIFIED 02/24/2011 MADL REAL ESTATE OPERATIONS MANAGER, RYAN L V58 .30 Encounter For [...] Removal Of Nonsurgical Wound Dressing 02/24/2011 [employer] SUPERVISOROLIVIA M 780.50 SLEEP DISTURBANCE, UNSPECIFIED 02/24/2011 OLIVIA [...] SHERRON K 789.05 Abdominal Pain Periumbilic 03/02/2011 RAYN HALL APRN 789 .05 Abdominal Pain Periumbilic [...] RESISTANT STAPHYLOCOCCUS AUR 03/24/2011 Ot 305.1 TOBA GLOBAL RECRUITER USE DISORDER 03/24/2011 Ot 530.81 ESO PHAGEAL [...] V58.69 MED ICATION HIGH RISK 03/25/2011 MICHELE REAL ESTATE OPERATIONS MANAGER, BRENNEN ZAMORANO V58.69 MEDICATION HIGH RISK 03/25/2011 MICHELE REAL ESTATE OPERATIONS MANAGER, BRENNEN ZAMORANO V58.69 MEDICATION HIGH RISK 03/25/2011 MICHELE REAL ESTATE OPERATIONS MANAGER, BRENNEN ZAMORANO V58.69 MEDICATION HIGH RISK [...] 298.9 P PS YCHOSIS NOS 09/30/2011 MICHELE REAL ESTATE OPERATIONS MANAGER, BRENNEN JAUN 298.9 P PSYCHOSIS NOS 09/30/2011 298.9 P PS YCHOSIS NOS 09/30/2011 MICHELE REAL ESTATE OPERATIONS MANAGER, BRENNEN JAUN 298.9 P PSYCHOSIS NOS 09/30/2011 MICHELE REAL ESTATE OPERATIONS MANAGER, BRENNEN JAUN 298.9 P PSYCHOSIS NOS 09/30/2011 MICHELE REAL ESTATE OPERATIONS MANAGER, BRENNEN JAUN 298.9 P PSYCHOSIS NOS 09/30/2011 VIRGEN DO, SHERRON K 298.9 P PSYCHOSIS NOS 09/30/2011 MADL REAL ESTATE OPERATIONS MANAGER, RYAN L 298 .9 P PSYCHOSIS [...] K 298.9 P PSYCHOSIS NOS 09/30/2011 [employer] SUPERVISOR, OLIVIA M 298.9 P PSYCHOSIS NOS 09/30/2011 VIRGEN DO, SHERRON K 298.9 P PSYCHOSIS NOS 09/30/2011 VIRGEN DO, SHERRON K 298.9 P PSYCHOSIS NOS 09/30/2011 [employer] SUPERVISOR, OLIVIA M 298.9 P PSYCHOSIS NOS 09/30/2011 VIRGEN DO, SHERRON K 298.9 P PSYCHOSIS NOS 10/04/2013 RYNE ROGERS, BRENNEN ZAMORANO 346.90 MIGRAINE HEADACHE 10/04/2013 MICHELE REAL ESTATE OPERATIONS MANAGER, BRENNEN ZAMORANO 346.90 MIGRAINE HEADACHE 10/04/2013 VIRGEN DO, SHERRON K 346.90 MIGRAINE HEADACHE 10/04/2013 MADL REAL ESTATE OPERATIONS MANAGER, RYAN L 346 .90 MIGRAINE HEADACHE [...] K 338.29 OTHER CHRONIC PAIN 02/13/2014 RAFAEL REAL ESTATE OPERATIONS MANAGER, RYAN L 338 .29 OTHER CHRONIC [...] K 338.29 OTHER CHRONIC PAIN 02/19/2014 LAURAVanessa REAL ESTATE OPERATIONS MANAGER, RYAN L 796 .9 OTHER NONSPECIFIC [...] URINARY TRACT SYMPTOMS (LUTS) 07/23/2014 VIRGEN DO, SHRERON K 724.2 LUMBAGO 07/23/2014 VIRGEN DO, SHERRON [...] MD Ot 414. 01 CORONARY ATHEROSCLEROSIS OF [place] CORON 02/18/2015 GILES CHRISTIANSON MD Ot 424. [...] PAIN 06/27/2017 SAJAN CRUZ MD, Ot Z79.82 BUSINESS SYSTEMS MANAGER (CURRENT) USE OF ASPIRIN 06/27/2017 SAJAN CRUZ [...] PAIN 06/29/2017 SAJAN CRUZ MD, Ot Z79.82 HALFWAY (CURRENT) USE OF ASPIRIN 06/29/2017 SAJAN CRUZ [...] PAIN 06/29/2017 SAJAN CRUZ MD, Ot Z79.82 BUSINESS SYSTEMS MANAGER (CURRENT) USE OF ASPIRIN 06/29/2017 SAJAN CRUZ [...] PAIN 07/14/2017 IMMANUEL FRANCO MD, Ot Z79.82 HALFWAY (CURRENT) USE OF ASPIRIN 07/14/2017 IMMANUEL FRANCO MD, Ot Z79.89 9 OTHER BUSINESS SYSTEMS MANAGER (CURRENT) DRUG THERAPY 07/14/2017 IMMANUEL FRANCO MD, [...] DO Ot I25.10 ATHSCL HEART DISEASE OF [place] CORONARY 08/23/2017 JUAN MANUEL EVANS DO Ot [...] DOI Ot I25.10 ATHSCL HEART DISEASE OF [place] CORONARY 08/24/2017 JAMILA EVANS DOI Ot I26.99 [...] DOI Ot I25.10 ATHSCL HEART DISEASE OF [place] CORONARY 08/24/2017 JAMILA EVANS DOI Ot I26.99 [...] R25.2 CRAMP AND SPASM 09/01/2017 SIVA DO MAHI K Ot Z79.01 HALFWAY (CURRENT) USE OF ANTICOAGULANT 09/01/2017 [facility] Ot Z79.82 BUSINESS SYSTEMS MANAGER (CURRENT) USE OF ASPIRIN 09/01/2017 SIVA ANILA [...] SPASM 09/08/2017 SIVA DOANILAA K Ot 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 09/08/2017 MAHI PANIAGUA DO Ot Z79.82 HALFWAY (CURRENT) USE OF ASPIRIN 09/08/2017 MAHI PANIAGUA [...] DOI Ot I25.10 ATHSCL HEART DISEASE OF [place] CORONARY 09/24/2017 NATHAN MELCHOR JUAN MANUEL Ot I47.1 SUPRAVENTRICULAR TACHYCARDIA 09/24/2017 NATHAN MELCHOR JUAN MANUEL Ot I48.0 PAROXYSMAL ATRIAL FIBRILLATION 09/24/2017 JAMILA EVANS DOI Ot K21.9 GASTRO-ESOPHAGEAL REFLUX DISEASE WITHOUT 09/24/2017 NATHAN MELCHOR JUAN MANUEL Ot K59.09 OTHER CONSTIPATION 09/24/2017 NATHAN MELCHOR JUAN MANUEL Ot Z79.89 1 BUSINESS SYSTEMS MANAGER (CURRENT) USE OF OPIATE ANALGE 09/24/2017 JAMILA EVANS DOI Ot Z79.89 9 OTHER BUSINESS SYSTEMS MANAGER (CURRENT) DRUG THERAPY 09/24/2017 NATHAN MELCHOR JUAN [...] UNSPECIFIED 09/25/2017 MAHI PANIAGUA DO Ot Z79.02 BUSINESS SYSTEMS MANAGER (CURRENT) USE OF ANTITHROMBOTI 09/25/2017 MAHI PANIAGUA [...] ARTH RODESIS STATUS 03/07/2018 MAKENZIE, EMILIE M REAL ESTATE OPERATIONS MANAGER Ot I86.1 SCROTAL VARICES 03/07/2018 EMILIE BANEGAS REAL ESTATE OPERATIONS MANAGER Ot K46.9 UNSPECIFIED ABDOMINAL HERNIA WITHOUT OBS 03/07/2018 EMILIE BANEGAS REAL ESTATE OPERATIONS MANAGER Ot N43.3 HYDROCELE, UNSPECIFIED 03/07/2018 EMILIE BANEGAS REAL ESTATE OPERATIONS MANAGER Ot N50.3 CYST OF EPIDIDYMIS 06/24/2018 ERIKA DRAPER, JEOVANNY Mayo Ot B18. 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 2 CHRONIC VIRAL HEPATITIS C 07/05/2018 JEOVANNY JAMES MD Ot B18. 2 CHRONIC VIRAL HEPATITIS C 08/03/2018 CARRINGTON GARAY [facility] Ot Z01.818 ENCOUNTER FOR OTHER PREPROCEDURAL EXAMIN 08/04/2018 CARRINGTON GARAY [facility] Ot Z01.818 ENCOUNTER FOR OTHER PREPROCEDURAL [...] OF THYROID FUNCTION MIKE 09/05/2018 CARRINGTON GARAY PUBLIC INFORMATION COORDINATOR Ot Z29.8 ENCOUNTER FOR OTHER SPECIFIED PROPHYLACT [...] Ot I86.1 SCROTAL VARICES 10/04/2018 EMILIE BANEGAS REAL ESTATE OPERATIONS MANAGER Ot K46.9 UNSPECIFIED ABDOMINAL HERNIA WITHOUT OBS 10/04/2018 EMILIE BANEGAS APRN Ot N43.3 HYDROCELE, UNSPECIFIED 10/04/2018 EMILIE BANEGAS REAL ESTATE OPERATIONS MANAGER Ot N50.3 CYST OF EPIDIDYMIS 10/04/2018 [...] MD Ot I25.10 ATHSCL HEART DISEASE OF [place] CORONARY 10/13/2018 NIC LÓPEZ MD Ot I48.0 [...] I86.1 SCROTAL VARICES 11/24/2018 MAKENZIE, EMILIE M REAL ESTATE OPERATIONS MANAGER Ot K46.9 UNSPECIFIED ABDOMINAL HERNIA WITHOUT [...] CHRONIC VIRAL HEPATITIS C 11/25/2018 EMILIE BANEGAS REAL ESTATE OPERATIONS MANAGER Ot E03.8 OTHER SPECIFIED HYPOTHYROIDISM 11/25/2018 EMILIE BANEGAS REAL ESTATE OPERATIONS MANAGER Ot I1 0 ESSENTIAL (PRIMARY) HYPERTENSION 11/25/2018 EMILIE BANEGAS REAL ESTATE OPERATIONS MANAGER Ot I48.0 PAROXYSMAL ATRIAL FIBRILLATION 01/06/2019 [...] Ot I25. 10 ATHSCL HEART DISEASE OF [place] CORONARY 03/01/2019 TERESA MENESES MD Ot I48. 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 10 ATHSCL HEART DISEASE OF [place] CORONARY 03/03/2019 TERESA MENESES MD Ot I48. [...] Ot I25. 10 ATHSCL HEART DISEASE OF [place] CORONARY 03/03/2019 TERESA MENESES MD Ot I48. [...] Z98.1 ARTH RODESIS STATUS 03/09/2019 EMILIE BANEGAS REAL ESTATE OPERATIONS MANAGER Ot I86.1 SCROTAL VARICES 03/09/2019 EMILIE BANEGAS REAL ESTATE OPERATIONS MANAGER Ot K46.9 UNSPECIFIED ABDOMINAL HERNIA WITHOUT OBS 03/09/2019 EMILIE BANEGAS REAL ESTATE OPERATIONS MANAGER Ot N43.3 HYDROCELE, UNSPECIFIED 03/09/2019 EMILIE BANEGAS REAL ESTATE OPERATIONS MANAGER Ot N50.3 CYST OF EPIDIDYMIS 03/09/2019 ERIKA DRAPER, JEOVANNY P Ot B18. 2 CHRONIC VIRAL HEPATITIS C 03/09/2019 EMILIE BANEGAS REAL ESTATE OPERATIONS MANAGER Ot R94.6 ABNORMAL RESULTS OF THYROID FUNCTION MIKE 03/09/2019 ERIKA DRAPER, JEOVANNY P Ot B18. 2 CHRONIC VIRAL HEPATITIS C 03/09/2019 EMILIE BANEGAS REAL ESTATE OPERATIONS MANAGER Ot E03.8 OTHER SPECIFIED HYPOTHYROIDISM 03/09/2019 EMILIE BANEGAS REAL ESTATE OPERATIONS MANAGER Ot I1 0 ESSENTIAL (PRIMARY) HYPERTENSION 03/09/2019 EMILIE BANEGAS REAL ESTATE OPERATIONS MANAGER Ot I48.0 PAROXYSMAL ATRIAL FIBRILLATION 03/09/2019 [...] DO Ot I25.10 ATHSCL HEART DISEASE OF [place] CORONARY 03/09/2019 NELLY POST DO Ot I48.91 UNSPECIFIED ATRIAL FIBRILLATION 03/09/2019 NELLY POST DO Ot I48.92 UNSPECIFIED ATRIAL FLUTTER 03/09/2019 NELLY POST DO Ot R00.0 TACHYCARDIA, UNSPECIFIED 03/09/2019 NELLY POST DO Ot 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 03/09/2019 NELLY POST [...] PERSONAL HISTORY OF OTHER VENOUS THROMBO 03/09/2019 [place] DO, NELLY Ot Z87.19 PERSONAL HISTORY OF OTHER DISEASES OF TH 03/09/2019 POST DO, NELLY Ot Z87.891 PERSONAL HISTORY OF NICOTINE DEPENDENCE 03/09/2019 [place] DO, NELLY Ot Z90.49 ACQUIRED ABSENCE OF OTHER SPECIFIED PART 03/10/2019 POST DO, NELLY Ot E03.9 HYPOTHYROIDISM, UNSPECIFIED 03/10/2019 [place] DO, NELLY Ot F32.9 MAJOR DEPRESSIVE DISORDER, SINGLE EPISOD 03/10/2019 [place] DO, NELLY Ot F41.9 ANXIETY DISORDER, UNSPECIFIED 03/10/2019 [place] DO, NELLY Ot G43.909 MIGRAINE, UNSP, NOT INTRACTABLE, WITHOUT 03/10/2019 POST DO, NELLY Ot I25.10 ATHSCL HEART DISEASE OF [place] CORONARY 03/10/2019 [place] DO, NELLY Ot I48.91 UNSPECIFIED ATRIAL FIBRILLATION 03/10/2019 [place] DO, NELLY Ot I48.92 UNSPECIFIED ATRIAL FLUTTER 03/10/2019 [place] DO, NELLY Ot R00.0 TACHYCARDIA, UNSPECIFIED 03/10/2019 [place] DO, NELLY Ot 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 03/10/2019 POST DO, [...] ACQUIRED ABSENCE OF OTHER SPECIFIED PART 03/10/2019 [place] DO, NELLY Ot E03.9 HYPOTHYROIDISM, UNSPECIFIED 03/10/2019 [place] DO, NELLY Ot F32.9 MAJOR DEPRESSIVE DISORDER, SINGLE EPISOD 03/10/2019 [place] DO, NELLY Ot F41.9 ANXIETY DISORDER, UNSPECIFIED 03/10/2019 [place] DO, NELLY Ot G43.909 MIGRAINE, UNSP, NOT INTRACTABLE, WITHOUT 03/10/2019 [place] DO, NELLY Ot I25.10 ATHSCL HEART DISEASE OF [place] CORONARY 03/10/2019 POST DO, NELLY Ot I48.91 UNSPECIFIED ATRIAL FIBRILLATION 03/10/2019 [place] DO, NELLY Ot I48.92 UNSPECIFIED ATRIAL FLUTTER 03/10/2019 [place] DO, NELLY Ot R00.0 TACHYCARDIA, UNSPECIFIED 03/10/2019 [place] DO, NELLY Ot 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 03/10/2019 [place] DO, NELLY Ot Z82.49 FAMILY HX OF [place] HEART DIS AND OTH DI 03/10/2019 [place] DO, NELLY Ot Z85.00 PERSONAL HISTORY OF MALIGNANT NEOPLASM O 03/10/2019 [place] DO, NELLY Ot Z86.010 PERSONAL HISTORY OF COLONIC POLYPS 03/10/2019 [place] DO, NELLY Ot Z86.711 PERSONAL HISTORY OF PULMONARY EMBOLISM 03/10/2019 [place] DO, NELLY Ot Z86.718 PERSONAL HISTORY OF OTHER VENOUS THROMBO 03/10/2019 [place] DO, NELLY Ot Z87.19 PERSONAL HISTORY OF OTHER DISEASES OF TH 03/10/2019 [place] DO, NELLY Ot Z87.891 PERSONAL HISTORY OF NICOTINE DEPENDENCE 03/10/2019 [place] DO, NELLY Ot Z90.49 ACQUIRED ABSENCE OF OTHER SPECIFIED PART 03/13/2019 POST DO, NELLY Ot B19.20 UNSPECIFIED VIRAL HEPATITIS C WITHOUT HE 03/13/2019 POST DO, NELLY Ot E03.9 HYPOTHYROIDISM, UNSPECIFIED 03/13/2019 [place] DO, NELLY Ot F32.9 MAJOR DEPRESSIVE DISORDER, SINGLE EPISOD 03/13/2019 [place] DO, NELLY Ot F41.9 ANXIETY DISORDER, UNSPECIFIED 03/13/2019 [place] DO, NELLY Ot G43.909 MIGRAINE, UNSP, NOT INTRACTABLE, WITHOUT 03/13/2019 [place] DO, NELLY Ot I25.10 ATHSCL HEART DISEASE OF [place] CORONARY 03/13/2019 POST DO, NELLY Ot I48.91 UNSPECIFIED ATRIAL FIBRILLATION 03/13/2019 [place] DO, NELLY Ot I48.92 UNSPECIFIED ATRIAL FLUTTER 03/13/2019 [place] DO, NELLY Ot R00.0 TACHYCARDIA, UNSPECIFIED 03/13/2019 [place] DO, NELLY Ot Z79.01 HALFWAY (CURRENT) USE OF ANTICOAGULANT 03/13/2019 [place] DO, NELLY Ot Z82.49 FAMILY HX OF [place] HEART DIS AND OTH DI 03/13/2019 POST DO, NELLY Ot Z85.00 PERSONAL HISTORY OF MALIGNANT NEOPLASM O 03/13/2019 POST DO, NELLY Ot Z86.010 PERSONAL HISTORY OF COLONIC POLYPS 03/13/2019 [place] DO, NELLY Ot Z86.711 PERSONAL HISTORY OF PULMONARY EMBOLISM 03/13/2019 [place] DO, NELLY Ot Z86.718 PERSONAL HISTORY OF OTHER VENOUS THROMBO 03/13/2019 [place] DO, NELLY Ot Z87.19 PERSONAL HISTORY OF OTHER DISEASES OF TH 03/13/2019 POST DO, NELLY Ot Z87.891 PERSONAL HISTORY OF NICOTINE DEPENDENCE 03/13/2019 [place] DO, ENLLY Ot Z90.49 ACQUIRED ABSENCE OF OTHER SPECIFIED PART 03/15/2019 POST DO, NELLY Ot B19.20 UNSPECIFIED VIRAL HEPATITIS C WITHOUT HE 03/15/2019 [place] DO, NELLY Ot E03.9 HYPOTHYROIDISM, UNSPECIFIED 03/15/2019 [place] DO, NELLY Ot F32.9 MAJOR DEPRESSIVE DISORDER, SINGLE EPISOD 03/15/2019 [place] DO, NELLY Ot F41.9 ANXIETY DISORDER, UNSPECIFIED 03/15/2019 [place] DO, NELLY Ot G43.909 MIGRAINE, UNSP, NOT INTRACTABLE, WITHOUT 03/15/2019 POST DO, NELLY Ot I25.10 ATHSCL HEART DISEASE OF [place] CORONARY 03/15/2019 POST DO, NELLY Ot I48.91 UNSPECIFIED ATRIAL FIBRILLATION 03/15/2019 [place] DO, NELLY Ot I48.92 UNSPECIFIED ATRIAL FLUTTER 03/15/2019 [place] DO, NELLY Ot R00.0 TACHYCARDIA, UNSPECIFIED 03/15/2019 [place] DO, NELLY Ot Z79.01 HALFWAY (CURRENT) USE OF ANTICOAGULANT 03/15/2019 POST DO, [...] DO, Ot I25.10 ATHSCL HEART DISEASE OF [place] CORONARY 04/10/2019 JOSE TAVERAS DO, Ot I25.2 [...] Ot I25. 10 ATHSCL HEART DISEASE OF [place] CORONARY 04/14/2019 TERESA MENESES MD Ot I48. [...] DO, Ot I25.10 ATHSCL HEART DISEASE OF [place] CORONARY 04/17/2019 JOSE TAVERAS DO, Ot I25.2 [...] Ot I25. 10 ATHSCL HEART DISEASE OF [place] CORONARY 04/20/2019 TERESA MENESES MD Ot I48. [...] DO, Ot I25.10 ATHSCL HEART DISEASE OF [place] CORONARY 05/30/2019 POST DO, NELLY Ot I48.91 UNSPECIFIED ATRIAL FIBRILLATION 05/30/2019 POST DO, NELLY Ot I48.92 UNSPECIFIED ATRIAL FLUTTER 05/30/2019 POST DO, NELLY Ot I50.9 HEART FAILURE, UNSPECIFIED 05/30/2019 [place] DO, NELLY Ot R07.9 CHEST PAIN, UNSPECIFIED 05/30/2019 [place] DO, NELLY Ot R79.89 OTHER SPECIFIED ABNORMAL FINDINGS OF BLO 05/30/2019 POST DO, NELLY Ot Z82.49 FAMILY HX OF [place] HEART DIS AND OTH DI 05/30/2019 [place] DO, NELLY Ot Z86.010 PERSONAL HISTORY OF COLONIC POLYPS 05/30/2019 [place] DO, NELLY Ot Z86.711 PERSONAL HISTORY OF PULMONARY EMBOLISM 05/30/2019 [place] DO, NELLY Ot Z86.718 PERSONAL HISTORY OF OTHER VENOUS THROMBO 05/30/2019 [place] DO, NELLY Ot Z87.891 PERSONAL HISTORY OF NICOTINE DEPENDENCE 05/30/2019 [place] DO, NELLY Ot Z90.49 ACQUIRED ABSENCE OF OTHER SPECIFIED PART 06/02/2019 [place] DO, NELLY Ot B19.20 UNSPECIFIED VIRAL HEPATITIS C WITHOUT HE 06/02/2019 [place] DO, NELLY Ot E03.9 HYPOTHYROIDISM, UNSPECIFIED 06/02/2019 [place] DO, NELLY Ot F32.9 MAJOR DEPRESSIVE DISORDER, SINGLE EPISOD 06/02/2019 [place] DO, NELLY Ot F41.9 ANXIETY DISORDER, UNSPECIFIED 06/02/2019 [place] DO, NELLY Ot G43.909 MIGRAINE, UNSP, NOT INTRACTABLE, WITHOUT 06/02/2019 [place] DO, NELLY Ot I25.10 ATHSCL HEART DISEASE OF [place] CORONARY 06/02/2019 POST DO, NELLY Ot I48.91 UNSPECIFIED ATRIAL FIBRILLATION 06/02/2019 [place] DO, NELLY Ot I48.92 UNSPECIFIED ATRIAL FLUTTER 06/02/2019 [place] DO, NELLY Ot I50.9 HEART FAILURE, UNSPECIFIED 06/02/2019 [place] DO, NELLY Ot R07.9 CHEST PAIN, UNSPECIFIED 06/02/2019 POST DO, NELLY Ot R79.89 OTHER SPECIFIED ABNORMAL FINDINGS OF BLO 06/02/2019 POST DO, NELLY Ot Z82.49 FAMILY HX OF [place] HEART DIS AND OTH DI 06/02/2019 [place] DO, NELLY Ot Z86.010 PERSONAL HISTORY OF COLONIC POLYPS 06/02/2019 [place] DO, NELLY Ot Z86.711 PERSONAL HISTORY OF [...] Ot I25. 10 ATHSCL HEART DISEASE OF [place] CORONARY 10/21/2019 TERESA MENESES MD Ot I48. [...] Ot I25. 10 ATHSCL HEART DISEASE OF [place] CORONARY 11/09/2019 FLACO DURÁN MD, Ot I48. 91 UNSPECIFIED ATRIAL FIBRILLATION 11/09/2019 FLACO DURÁN MD Ot R07. 0 PAIN IN THROAT 11/09/2019 FLACO DURÁN MD, Ot R07. 9 CHEST PAIN, UNSPECIFIED 11/09/2019 FLACO DURÁN MD, Ot R22. 0 LOCALIZED SWELLING, MASS AND LUMP, HEAD 11/09/2019 FLACO DURÁN MD, Ot Z79. 01 BUSINESS SYSTEMS MANAGER (CURRENT) USE OF ANTICOAGULANT 11/09/2019 FLACO DURÁN [...] Ot I25. 10 ATHSCL HEART DISEASE OF [place] CORONARY 11/14/2019 FLACO DURÁN MD, Ot I48. 91 UNSPECIFIED ATRIAL FIBRILLATION 11/14/2019 FLACO DURÁN MD, Ot R07. 0 PAIN IN THROAT 11/14/2019 FLACO DURÁN MD, Ot R07. 9 CHEST PAIN, UNSPECIFIED 11/14/2019 FLACO DURÁN MD, Ot R22. 0 LOCALIZED SWELLING, MASS AND LUMP, HEAD 11/14/2019 FLACO DURÁN MD, Ot Z79. 01 BUSINESS SYSTEMS MANAGER (CURRENT) USE OF ANTICOAGULANT 11/14/2019 FLACO DURÁN [...] Ot I25. 10 ATHSCL HEART DISEASE OF [place] CORONARY 11/22/2019 FLACO DURÁN MD, Ot I48. 91 UNSPECIFIED ATRIAL FIBRILLATION 11/22/2019 FLACO DURÁN MD, Ot R07. 0 PAIN IN THROAT 11/22/2019 FLACO DURÁN MD, Ot R07. 9 CHEST PAIN, UNSPECIFIED 11/22/2019 FLACO DURÁN MD, Ot R22. 0 LOCALIZED SWELLING, MASS AND LUMP, HEAD 11/22/2019 FLACO DURÁN MD, Ot Z79. 01 BUSINESS SYSTEMS MANAGER (CURRENT) USE OF ANTICOAGULANT 11/22/2019 FLACO DURÁN [...] Ot I25. 10 ATHSCL HEART DISEASE OF [place] CORONARY 12/20/2019 TERESA MENESES MD Ot I48. [...] Ot I25.1 0 ATHSCL HEART DISEASE OF [place] CORONARY 01/19/2020 KACY MARC MD Ot I48.9 1 UNSPECIFIED ATRIAL FIBRILLATION 01/19/2020 KACY MARC MD Ot I48.9 2 UNSPECIFIED ATRIAL FLUTTER 01/19/2020 KACY MARC MD Ot M19.9 1 PRIMARY OSTEOARTHRITIS, UNSPECIFIED SITE 01/19/2020 KACY MARC MD Ot N40.0 BENIGN PROSTATIC HYPERPLASIA WITHOUT LOW 01/19/2020 KACY MARC MD Ot R07.9 CHEST PAIN, UNSPECIFIED 01/19/2020 KACY MARC MD Ot Z79.8 99 OTHER HALFWAY (CURRENT) DRUG THERAPY 01/19/2020 KACY MARC MD, [...] Ot I25. 10 ATHSCL HEART DISEASE OF [place] CORONARY 01/19/2020 TERESA MENESES MD Ot I48. 91 UNSPECIFIED ATRIAL FIBRILLATION 01/19/2020 TEERSA MENESES MD Ot I48. 92 UNSPECIFIED ATRIAL [...] Ot I25. 10 ATHSCL HEART DISEASE OF [place] CORONARY 01/25/2020 FLACO DURÁN MD, Ot I48. 91 UNSPECIFIED ATRIAL FIBRILLATION 01/25/2020 FLACO DURÁN MD, Ot R07. 0 PAIN IN THROAT 01/25/2020 FLACO DURÁN MD, Ot R07. 9 CHEST PAIN, UNSPECIFIED 01/25/2020 FLACO DURÁN MD, Ot R22. 0 LOCALIZED SWELLING, MASS AND LUMP, HEAD 01/25/2020 FLACO DURÁN MD, Ot Z79. 01 BUSINESS SYSTEMS MANAGER (CURRENT) USE OF ANTICOAGULANT 01/25/2020 FLACO DURÁN [...] Brown, Ernst W R51 HEADACHE 02/22/2020 ZAIRA RDAPER, TERESA J Ot E03. 9 HYPOTHYROIDISM, UNSPECIFIED [...] 02/22/2020 TERESA MENESES MD Ot Z79. 01 HALFWAY (CURRENT) USE OF ANTICOAGULANT 02/22/2020 TERESA MENESES [...] Ot I10 ESSENTIAL (PRIMARY) HYPERTENSION 02/29/2020 TERESA EMNESES MD Ot I20. 0 UNSTABLE ANGINA 02/29/2020 TERESA MENESES MD Ot I25. 2 OLD MYOCARDIAL INFARCTION 02/29/2020 TERESA MENESES MD Ot I48. 91 UNSPECIFIED ATRIAL FIBRILLATION 02/29/2020 TERESA MENESES MD Ot I48. 92 UNSPECIFIED ATRIAL FLUTTER 02/29/2020 TERESA MENESES MD Ot R07. 9 CHEST PAIN, UNSPECIFIED 02/29/2020 TERESA MENESES MD Ot Z79. 01 HALFWAY (CURRENT) USE OF ANTICOAGULANT 02/29/2020 TERESA MENESES [...] OTHE R SKIN SUBQ I D 03/23/2011 68594 PSYC H IND W/MED CK 20 09/06/2012 26420 ROUT INE VENIPUNCTURE 02/13/2014 67339 INR (IN HOUSE) 02/13/2014 97774 CBC 02/13/2014 34802 CMP 02/13/2014 0424402 GF R CALC (RESULT ONLY) 02/13/2014 34528 SONDRA MIN D 25-HYDROXY (D2,D3, TOTAL) 02/13/2014 29345 VIT B 12 02/13/2014 30315 TSH 02/13/2014 TESTFRTOT TESTOSTERONE FREE AND TOTAL MALE 02/13/2014 95706 ROUT INE VENIPUNCTURE 02/19/2014 80256 LIPI D PANEL 02/19/2014 J1080 Depo -Testosterone 200 mg/mL oil 03/12/2014 60931 THER APUTIC INJ SQ/IM 04/11/2014 94017 THER APUTIC INJ SQ/IM 05/08/2014 91704 THER APUTIC INJ SQ/IM 06/20/2014 64791 THER APUTIC INJ SQ/IM 06/20/2014 15216 ROUT INE VENIPUNCTURE 06/21/2014 94007 UA L PRABHAKAR DIP 06/21/2014 TESTFRTOT TESTOSTERONE FREE AND TOTAL MALE 06/22/2014 52242 TEST OSTERONE TOTAL MALES 07/23/2014 38190 THER APUTIC INJ SQ/IM 07/23/2014 J1080 Depo -Testosterone 200 mg/mL oil 07/23/2014 92314 THER APUTIC INJ SQ/IM 08/20/2014 06892 THER APUTIC INJ SQ/IM 09/27/2014 27780 AMERITOX 11/05/2014 16353 THER APUTIC INJ SQ/IM 12/21/2014 99.61 ATRI AL CARDIOVERSION 02/17/2015 37.22 LEFT HEART CARDIAC CATH 02/18/2015 88.42 CONT RAST AORTOGRAM 02/18/2015 88.53 LT H EART ANGIOCARDIOGRAM 02/18/2015 88.56 ZACKERY WILLIAM ARTERIOGR-2 CATH 02/18/2015 [id number] ME ASURE OF CARDIAC SAMPL PRESSURE, L H 09/24/2017 [id number] FL UOROSCOPY OF MULT COR ART USING L OSM 09/24/2017 [id number] FL UOROSCOPY OF LEFT HEART USING LOW OSMO 09/24/2017 [id number] ME ASURE OF CARDIAC SAMPL PRESSURE, L H 10/13/2018 [id number] FL UOROSCOPY OF MULT COR ART USING L OSM 10/13/2018 [id number] FL UOROSCOPY OF LEFT HEART USING LOW OSMO 10/13/2018 [id number] FL UOROSCOPY OF THORACIC AORTA USING LOW [...] coagulation assay See Footnote NR Prothrombin gene L47215I mutation detect ion - 08/23/17 11:01 Prothrombin gene [id number] mutation detection See fo otnote [facility] Comprehensive metabolic panel - 09/01/17 21:21 Serum [...] detection by PCR with reflex to quantitation [id number] <=11 HEPATITIS C GENOTYPE - 11/12/17 11:55 [...] CORRECTED 10.1 mg/dL 8.5-10.1 Serum or plasma enjgm-6-ikafakknrii.tumo r marker measurement (mass/volume) - 06/24/18 12:38 Serum or plasma cevng-4-pocbudmubct.tumo r marker measurement (mass/volume) 6.0 % 0.0-8.8 [...] volume) 1.12 ng/dL 0.70-1.48 Serum or plasma tsfqz-1-mfgntnljyfl.tumo r marker measurement (mass/volume) - 10/04/18 10:34 Serum or plasma ptwkr-2-kliioxvataj.tumo r marker measurement (mass/volume) 6.0 % 0.0-8.8 [...] Negative Urine-Blood Negative Negative Urine-Color Yellow Colorless-[place] ow Urine-Glucose Negative Negative Urine-Ketones Negative Negative Urine-Leukocytes Negative Negative Urine-Mucus 1+ Urine-Nitrite Negative Negative Urine-Other Urine Saved if Culture Need ed (48hrs from time of collection) Urine-pH 5.5 5-8.5 Urine-Protein Negative Negative Urine-RBC Negative Urine-Specific Purdy 1.010 1.000-1 .030 Urine-WBC Rare/HPF Urobilinogen 0.2 [...] 7-25 CREATININE 1.49 mg/dL 0.70-1.25 eGFR NON-AFR. BRITISH 50 mL/min/1.73m2 > OR = 60 eGFR [...] Disease Ab, Quant, IgM <0.80 [facility]00[facility]0.79 [facility], Qn - 9 04:53 RMSF, IgG, EIA Positive Negative RMSF, IgG, IFA - 05/19/19 04:53 RMSF, IgG, IFA 1:64 Neg <1:64 Jannet Ctn Spotted Fever, IgM - 05/19/19 04:53 Jannet [...] RMSF, IGG, IFA 1:64 NEG <1:64 Jannet Ctn Spotted Fever, IgM - 05/19/19 04:53 JANNET ARN SPOTTED FEVER, IGM 0.25 INDEX 0.00-0.89 Francisella [...] Negative Urine-Blood Negative Negative Urine-Color Yellow Colorless-[place] ow Urine-Epithelial Cells 0-5/HPF Urine-Glucose Negative Negative Urine-Ketones Negative Negative Urine-Leukocytes Negative Negative Urine-Mucus 1+ Urine-Nitrite Negative Negative Urine-Other Urine Saved if Culture Need ed (48hrs from time of collection) Urine-pH 6.0 5-8.5 Urine-Protein Trace Negative Urine-RBC 0-2/HPF Urine-Specific [place]dy 1.015 1.000-1 .030 Urine-WBC 0-2/HPF Urobilinogen 0.2 [...] smear finding identification by light micr oscopy [facility] Comprehensive metabolic panel - 01/17/20 17:35 Serum [...] 03/11/20 20:11 Myoglobin, serum 91.3 ng/mL 10.0-92.0 Serum or plasma lithium measurement (mol es/volume) - 03/11/20 20:11 BNP PT 242.3 pg/mL <100.0 Blood lactic acid measurement (moles/vol ume) - 03/11/20 20:11 Blood lactic acid measurement (moles/volume) 1.61 mmol/L 0.50-2.00 Complete urinalysis with reflex to cultu re - 03/11/20 21:05 Urine color determination YELLOW NRG Urine clarity determination CLEAR NR G Urine pH measurement by test strip 7.5 5-9 Specific gravity of urine by test strip 1.015 1.016-1.022 Urine protein assay by test strip, semi-quantitative NEGATIVE NEGATIVE Urine glucose detection by automated test strip NE GATIVE NEGATIVE Erythrocytes detection in urine sediment by light micr oscopy TRACE-I NEGATIVE Urine ketones detection by automated test strip NE GATIVE NEGATIVE Urine nitrite detection by test strip NEGATIVE NEGATIVE Urine total bilirubin detection by test strip NEGA TIVE NEGATIVE Urine urobilinogen measurement by automated test strip (mass/volume) 2.0 mg/dL < = 1.0 Urine leukocyte esterase detection by dipstick 3+ NEGATIVE Automated urine sediment erythrocyte cou nt by microscopy (number/high power field) RARE NRG Automated urine sediment leukocyte count by microscopy (number/high power field) [HPF] NRG Bacteria detection in urine sediment by light microsco py MODERATE NRG Squamous epithelial cells detection in u rine sediment by light microscopy RARE NRG Crystals detection in urine sediment by light microsco py NONE NRG Casts detection in urine sediment by light microscopy NONE NRG Mucus detection in urine sediment by light microscopy SMALL NRG Complete urinalysis with reflex to culture YES NRG Urine drug screening test - 03/11/20 21: 05 Urine phencyclidine detection by screening method NEGATIVE NEGATIVE Urine benzodiazepines detection by screening method POSITIVE NEGATIVE Urine cocaine detection NEGATIVE NEGATI VE Urine amphetamines detection by screening method N EGATIVE NEGATIVE Urine methamphetamine detection by screening method NEGATIVE NEGATIVE Urine cannabinoids detection by screening method N EGATIVE NEGATIVE Urine opiates detection by screening method POSITI VE NEGATIVE Urine barbiturates detection NEGATIVE N EGATIVE Screening urine tricyclic antidepressants detection NEGATIVE NEGATIVE Urine methadone detection by screening method NEGA TIVE NEGATIVE Urine oxycodone detection NEGATIVE NEGA TIVE Urine propoxyphene detection NEGATIVE N EGATIVE Encounters ACCT No. Visit Date/Time Discharge Status Pt. Type Provider Facility Loc./Unit Complaint [id number] 01/08/2017 10:09:00 Document Registration [id number] 09/24/2017 09:08:55 09/24/2017 23:59:5 9 CLS Outpatient [id number] 02/20/2020 19:28:00 22:20:00 DIS Outpatient ZAIAR DRAPER, TERESA Caal [facility] ER FS CHEST PAIN [id number] 01/17/2020 17:23:00 20:05:00 DIS Outpatient MONICO DRAPER, KACY Feliciano [facility] ER FS CHEST PAIN [id number] 11/09/2019 14:00:00 15:54:00 DIS Outpatient LEEANNA DRAPER, FLACO Verma [facility] ER FS CHEST PAIN [id number] 05/29/2019 13:31:00 01:57:00 DIS Emergency NELLY POST DO [facility] ER FS CHEST PAIN [id number] 04/10/2019 20:06:00 21:58:00 DIS Emergency JOSE TAVERAS DO [facility] ER FS FEELS WEAK, CHEST PAIN, SOB [id number] 03/09/2019 16:33:00 18:40:00 DIS Emergency NELLY POST DO [facility] ER FS HIGH HEART RATE [id number] 03/01/2019 21:54:00 23:36:00 DIS Emergency BRUEGGEMANN MD, MUNDO Lawson [facility] ER R ARM RASH [id number] 03/01/2019 11:23:00 12:17:00 DIS Outpatient ZAIRA DRAPER, TERESA Caal [facility] ER FS ABSCESS [id number] 01/06/2019 15:50:00 16:25:00 DIS Emergency NELLY POST DO [facility] ER FS POST OP WEAKNESS [id number] 10/12/2018 19:36:00 15:26:00 DIS Inpatient MARIBEL DRAPER, NIC Nguyễn [facility] ICU AFIB W RVR AND CP [id number] 10/04/2018 10:11:00 23:59:59 CLS Outpatient EMILIE BANEGAS APRN [facility] LAB I10 [id number] 10/04/2018 10:08:00 23:59:59 CLS Outpatient JEOVANNY JAMES MD [facility] LAB SEE ORDER [id number] 09/05/2018 00:11:00 23:59:59 CLS Preadmit CARRINGTON GARAY [facility] CR3 CARDIAC REHAB P HASE III [id number] 08/05/2018 08:18:00 00:01:00 DIS Outpatient CARRINGTON GARAY [facility] CR3 CARDIAC REHAB P HASE III [id number] 08/23/2018 10:33:00 23:59:59 CLS Outpatient EMILIE BANEGAS APRN [facility] RAD ELEVATED TSH,THYROID T ENDERNESS [id number] 08/03/2018 07:26:00 00:01:00 DIS Outpatient CARRINGTON GARAY [facility] CR3 CARDIAC REHAB P HASE III [id number] 06/24/2018 12:24:00 23:59:59 CLS Outpatient JEOVANNY JAMES MD [facility] LAB B18.2 [id number] 02/18/2018 08:28:00 018 23:59:59 CLS Outpatient EMILIE BANEGAS APRN [facility] RAD GROIN PAIN,HERNIA [id number] 11/12/2017 11:37:00 018 23:59:59 CLS Outpatient JEOVANNY JAMES MD [facility] LAB B18.2 [id number] 11/09/2017 11:00:00 018 23:59:59 CLS Preadmit EMILIE BANEGAS APRN [facility] RAD NECK PAIN,LOW BACK PAIN [id number] 10/07/2017 08:00:00 018 23:59:59 CLS Preadmit YESENIA DRAPER, Kitty HYLTON [facility] CARD R07.9 CHEST PAIN [id number] 09/25/2017 20:08:00 018 21:54:00 DIS Emergency SIVA MAHI [facility]ELCH[facility] ER CP [id number] 09/24/2017 04:14:00 018 16:25:00 DIS Inpatient JUAN MANUEL EVANS DO [facility] ICU A-FIB [id number] 09/01/2017 21:13:00 017 23:09:00 DIS Emergency CAVE JUNCTION MAHI MELCH[facility] ER LEG CRAMPS;CHEST PAIN;B LOOD CLOTS [id number] 08/21/2017 08:27:00 017 13:45:00 DIS Inpatient JUAN MANUEL EVANS DO [facility] 4TH PE,HYPOXIA [id number] 07/14/2017 09:27:00 017 13:45:00 DIS Outpatient IMMANUEL FRANCO MD [facility] ENDO ABD. PAIN/HX DIVERTICUL ITIS [id number] 07/12/2017 05:37:00 017 13:22:00 DIS Outpatient IMMANUEL FRANCO MD [facility] PREOP ABD. PAIN/HX DIVERTICUL ITIS [id number] 06/28/2017 20:15:00 017 21:29:00 DIS Emergency TERESA MENESES MD [facility] ER ABD PAIN/PASSING BLOOD IN STOOL [id number] 06/27/2017 19:26:00 017 22:19:00 DIS Emergency SAJAN CRUZ MD [facility] ER AB PAIN [id number] 05/13/2017 11:16:00 017 23:59:59 CLS Preadmit MARK DRAPER, NAHOMI De La Cruz [facility] RAD MASS OF SINUS [id number] 02/16/2015 22:13:00 015 12:04:00 DIS Inpatient MEGHAN DRAPER, GILES Caal [facility] CSD TACHYCARDIA [id number] 03/11/2020 20:25:00 Document Registration [id number] 11/25/2018 11:02:00 Document Registration [id number] 11/22/2017 10:40:00 Document Registration [id number] 02/18/2015 08:22:00 Document Registration [id number] 02/18/2015 08:21:00 Document Registration [id number] 02/18/2015 08:21:00 Document Registration [id number] 02/18/2015 08:21:00 Document Registration [id number] 09/20/2011 01:05:00 Document Registration [id number] 09/06/2011 00:55:00 Document Registration [id number] 04/10/2011 10:45:00 Document Registration [id number] 02/23/2011 16:44:00 Document Registration [id number] 02/21/2011 17:19:00 Document Registration [id number] 02/21/2011 08:45:00 Document Registration [id number] 02/14/2011 14:03:00 Document Registration [id number] 02/01/2011 20:31:00 Document Registration [id number] 10/29/2010 19:11:00 Document Registration [id number] 02/11/2010 06:03:00 Document Registration [id number] 05/24/2019 14:09:00 Document Registration [id number] 11/24/2018 04:35:00 09:20:00 DIS Emergency FREDERICK CASAREZ DO [facility] ER FS HEADACHE [id number] 03/06/2020 08:40:00 03/06/2020 23:59:5 9 CLS Outpatient INEZ NIKKI Dan[facility] [id number] 02/14/2020 07:15:00 Document Registration [id number] 06/13/2019 10:15:00 Document Registration [id number] 02/20/2019 17:20:00 Document Registration [id number] 02/08/2019 14:00:00 Document Registration [id number] 05/24/2019 15:09:00 Document Registration [id number] 05/30/2019 10:10:00 Document Registration [id number] 12/21/2014 14:36:00 12/21/2014 23:59: 59 CLS Outpatient VIRGEN DOSHERRON [id number] 11/05/2014 10:03:00 11/05/2014 23:59: 59 CLS Outpatient VIRGEN DOSHERRON [id number] 11/05/2014 09:04:00 11/05/2014 23:59: 59 CLS Outpatient OLIVIA AUGUSTINE [id number] 09/27/2014 12:57:00 09/27/2014 23:59: 59 CLS Outpatient VIRGEN DOSHERRON [id number] 08/22/2014 08:19:00 08/22/2014 23:59: 59 CLS Outpatient OLIVIA AUGUSTINE [id number] 08/20/2014 11:14:00 08/20/2014 23:59: 59 CLS Outpatient VIRGEN DOSHERRON [id number] 08/20/2014 10:45:00 08/20/2014 23:59: 59 CLS Outpatient VIRGEN DOSHERRON [id number] 07/23/2014 12:53:00 07/23/2014 23:59: 59 CLS Outpatient VIRGEN DOSHERRON [id number] 07/23/2014 12:53:00 07/23/2014 23:59: 59 CLS Outpatient VIRGEN DOSHERRON [id number] 06/21/2014 11:51:00 06/21/2014 23:59: 59 CLS Outpatient VIRGEN DOSHERRON [id number] 06/20/2014 09:06:00 06/20/2014 23:59: 59 CLS Outpatient VIRGEN DOSHERRON [id number] 06/05/2014 11:28:00 06/05/2014 23:59: 59 CLS Outpatient VIRGEN DOSHERRON [id number] 05/08/2014 13:37:00 05/08/2014 23:59: 59 CLS Outpatient VIRGEN DOSHERRON [id number] 04/11/2014 12:20:00 04/11/2014 23:59: 59 CLS Outpatient VIRGEN DOSHERRON [id number] 03/12/2014 09:18:00 03/12/2014 23:59: 59 CLS Outpatient VIRGEN DOSHERRON [id number] 02/19/2014 08:24:00 02/19/2014 23:59: 59 CLS Outpatient [facility]URAL [employer] [facility] [id number] 02/13/2014 08:48:00 02/13/2014 23:59: 59 CLS Outpatient VIRGEN DOSHERRON [id number] 12/12/2013 16:22:00 12/12/2013 23:59: 59 CLS Outpatient MICHELE [employer] [facility]ENNEN [id number] 10/04/2013 09:47:00 10/04/2013 23:59: 59 CLS Outpatient MICHELE [employer] [facility] [id number] 01/23/2013 11:08:00 01/23/2013 23:59: 59 CLS Outpatient MICHELE [employer]ENNEN De La [place] [id number] 09/06/2012 10:35:00 09/06/2012 23:59: 59 CLS Outpatient MICHELE [employer] MANAGERBRENNEN [id number] 04/08/2012 09:14:00 04/08/2012 23:59:5 9 CLS Outpatient [id number] 01/10/2013 11:04:00 Document Registration [id number] 02/01/2020 20:08:00 02/01/2020 23:48 :00 [id number]/10/2019 18:31:00 10/10/2019 20:07 :00 DIS Outpatient [facility] [id number] 05/29/2019 12:35:00 05/29/2019 12:35: 00 DIS Outpatient Yanira Rick [id number] 05/27/2019 17:58:00 05/27/2019 20:50: 00 DIS Out[facility] [facility] [id number] 05/19/2019 03:52:00 05/19/2019 06:15: 00 DIS Outpatient ROSENDA ARTIEHANNAH [facility] ER [id number] 03/20/2019 17:55:00 03/20/2019 20:08: 00 DIS Outpatient Yanira [facility] ER [id number] 02/03/2019 17:01:00 02/03/2019 19:16: 00 DIS Outpatient Yanira [facility] ER [id number] 08/05/2018 14:25:00 08/06/2018 08:30: 00 DIS Outpatient Eduardo Champagne [facility] ER [id number] 06/28/2017 21:46:00 06/29/2017 02:10: 00 DIS Outpatient ROSITA WATKINS [id number] 06/28/2017 23:55:46 Document Registration
[2020-03-11] MEDS: oxyCODONE/APAP 5/325MG (PERCOCET 5) TABLET PO PRN (23:15)
[2020-03-12] VITALS (30 sets, daily range): BP systolic 56–124; BP diastolic 34–78
[2020-03-12] MEDS ORDERED: NS IV 1000 ML 1,000 ML ONE ×2 (02:26→02:42)
[2020-03-12] MEDS ORDERED: ACETAMINOPHEN 500 MG TAB (TYLENOL) ONE (02:41)
[2020-03-12] MEDS ORDERED: IBUPROFEN 600 MG (MOTRIN) TAB PO ONE (02:41)
[2020-03-12] MEDS ORDERED: NITROGLYCERIN 0.4 MG SL TABS BTL 25'S SL ONE (02:41)
[2020-03-12] MEDS ORDERED: morphine INJ 4 MG/ML 1 ML (VIAL/SYRINGE) ONE (02:41)
[2020-03-12] MEDS ORDERED: morphine INJ 10 MG/ML 1ML (SYR OR VIAL) IVP STA (02:43)
[2020-03-12] MEDS ORDERED: ACETAMINOPHEN 500 MG TAB (TYLENOL) PO PRN (02:45)
[2020-03-12] MEDS ORDERED: ONDANSETRON 4 MG/2 ML (SDV) Z0FRAN ONE (02:54)
[2020-03-12] MEDS: NS IV 1000 ML 1,000 ML IV SCH ×7 (03:00→21:50)
[2020-03-12] MEDS: ONDANSETRON 4 MG/2 ML (SDV) Z0FRAN IVP PRN ×2 (03:14→19:56)
[2020-03-12] MEDS: ALPRAZolam 1 MG (XANAX) TAB PO PRN ×3 (03:24→23:49)
--- NOTE | 2020-03-12 04:01 | NUR ---
TIMELINE NOTE- 0245-PT CALLED THIS RN TO ROOM, PT STATED "MY CHEST HURTS, MY JAW HURTS AND MY NECK." VITAL SIGNS 70/45 MANUAL BP, O2 92% ON 2L NC, TEMP 38.9. PT SHAKING UNCONTROLLABLY. EKG OBTAINED. NOTIFIED DR FLORES OF PT CONDITION, START IV BOLUS PER DR FLORES-BP IMPROVING TO 98/56. SEE ORDER HX. NOTIFIED DR CHRISTIANSON OF CONSULT AND PT CONDITION, ORDERS FOR 2MG MORPHINE. END OF 1LITER BOLUS BP 75/40, NOTIFIED DR FLORES, SEE ORDER HX, MOVED PT TO ICU 4. CONSULT E-ICU AND DR DUQUE.
[2020-03-12] MEDS ORDERED: LIDOCAINE UROJET 2% GEL 10 ML PKG ONE (04:17)
[2020-03-12 05:05] LABS: BASOPHILS # (AUTO) 0.1 10^3/uL (0.0-0.1); BASOPHILS % (AUTO) 0 % (0-10); EOSINOPHILS # (AUTO) 0.1 10^3/uL (0.0-0.3); EOSINOPHILS % (AUTO) 1 % (0-10); HEMATOCRIT 38 % (40-54); HEMOGLOBIN 12.8 G/DL (13.3-17.7); LYMPHOCYTES # (AUTO) 1.6 X 10^3 (1.0-4.0); LYMPHOCYTES % (AUTO) 10 % (12-44); MEAN CORPUSCULAR HEMOGLOBIN 28 PG (25-34); MEAN CORPUSCULAR HGB CONC 34 G/DL (32-36); MEAN CORPUSCULAR VOLUME 84 FL (80-99); MEAN PLATELET VOLUME 11.1 FL (7.4-10.4); MONOCYTES % (AUTO) 12 % (0-12); NEUTROPHILS # (AUTO) 12.1 X 10^3 (1.8-7.8); NEUTROPHILS % (AUTO) 77 % (42-75); PLATELET COUNT 420 10^3/uL (130-400); RED CELL DISTRIBUTION WIDTH 16.1 % (10.0-14.5); WHITE BLOOD COUNT 15.8 10^3/uL (4.3-11.0)
[2020-03-12 05:08] LABS: POTASSIUM 3.8 MMOL/L (3.6-5.0)
[2020-03-12 05:09] LABS: CALCIUM 8.7 MG/DL (8.5-10.1)
[2020-03-12 05:14] LABS: CREATININE SERUM 1.69 MG/DL (0.60-1.30)
[2020-03-12] MEDS ORDERED: NOREPINEPHRINE 4 MG/250 ML 250 ML IV ONE (05:22)
[2020-03-12] MEDS: NOREPINEPHRINE 4 MG/250 ML 250 ML IV SCH ×3 (05:30→15:36)
--- NOTE | 2020-03-12 05:33 | NUR ---
notified dr gentile of consult and pt condition, orders to bolus additional liter of normal saline. will continue to monitor.
--- NOTE | 2020-03-12 05:39 | NUR ---
UPDATED DR FLORES ON PT CONDITION. THIS RN ASKED PT TO PUT IN A MEEHAN CATH D/T LOW BLOOD PRESSURE AND DECREASED URINE OUTPUT. PT EDUCATED THOROUGHLY ON SUBJECT, PT REFUSED MEEHAN CATH SAYING "IT HURT TOO MUCH." OFFERED NUMBING MEDICATION FOR INSERTION OF MEEHAN CATH, PT CONTINUED TO REFUSE. PT STATED "THERE IS NO USE TALKING ABOUT IT, I DO NOT WANT ONE." WILL CONTINUE TO MONITOR AND EDUCATE.
[2020-03-12] MEDS ORDERED: IBUPROFEN 600 MG (MOTRIN) TAB PO SCH (06:00)
--- NOTE | 2020-03-12 06:13 | NUR ---
DR DUQUE AT BEDSIDE TO INSERT CENTRAL LINE.
[2020-03-12] MEDS ORDERED: MIDAZOLAM 5 MG/5 ML (VERSED) VIAL ONE (06:19)
[2020-03-12] MEDS ORDERED: fentaNYL INJECTION 100 MCG/2 ML AMP ONE (06:19)
[2020-03-12] MEDS ORDERED: MIDAZOLAM 5 MG/5 ML (VERSED) VIAL IVP ONE (06:45)
[2020-03-12] MEDS ORDERED: fentaNYL INJECTION 100 MCG/2 ML AMP IVP ONE (06:45)
[2020-03-12] MEDS ORDERED: NS IV 1000 ML 1,000 ML IV ONE (07:00)
--- NOTE | 2020-03-12 08:00 | Pulmonary Consultation ---
History of Present Illness History of Present Illness Date Seen by Provider: Mar 12, 2020 Time Seen by Provider: 07:55 Date of Admission Allergies and Home Medications Allergies Uncoded Allergies: IV contrast (Allergy, Unknown, 03/11/20) Home Medications Alprazolam 1 Mg Tablet, 1 MG PO TID PRN for ANXIETY, (Reported) Apixaban 5 Mg Tablet, 5 MG PO BID, (Reported) Levothyroxine Sodium 25 Mcg Tablet, 25 MCG PO DAILY, (Reported) Oxycodone HCl 5 Mg Tablet, 5 MG PO QID PRN for PAIN-SEVERE, (Reported) Past Nzxigro-Bkdrsr-Dzdkjh Hx Patient Social History Alcohol Use: Denies Use Recreational Drug Use: No Smoking Status: Former Smoker Type Used: Cigarettes Former Smoker, Quit: Jul 12, 1985 2nd Hand Smoke Exposure: No Recent Foreign Travel: No Contact w/Someone Who Travel: No Recent Infectious Disease Expo: No Recent Hopitalizations: No Physical Abuse: No Sexual Abuse: No Mistreated: No Fear: No Immunizations Up To Date Tetanus Booster (TDap): Unknown Date of Pneumonia Vaccine: Jul 21, 2018 Date of Influenza Vaccine: Jul 21, 2018 Seasonal Allergies Seasonal Allergies: No Past Medical History Surgeries: Yes (Cardiac Ablation ) Appendectomy Respiratory: Yes Pulmonary Embolism Cardiac: Yes Atrial Fibrillation, High Cholesterol, Hypertension, Irregular Heartbeat Neurological: Yes Headaches /Migraines Reproductive Disorders: No Sexually Transmitted Disease: Yes (Hep C: treated) HIV/AIDS: No Genitourinary: No Prostate Problems Gastrointestinal: No Diverticulosis, Hemorrhoids Musculoskeletal: No Arthritis Endocrine: Yes Hypothyroidsim HEENT: No Loss of Vision: Denies Hearing Impairment: Denies Cancer: Yes Colon Did You Recieve Any Treatments: Yes What Type of Treatment Did You: Surgical Intervention Psychosocial: Yes Anxiety, Depression Integumentary: No Blood Disorders: No Adverse Reaction/Blood Tranf: No Family Medical History Heart Disease, Hypertension Review of Systems Time Seen by Provider: 08:03 Sepsis Event Evaluation Height, Weight, BMI Height: 6'0" Weight: 224lbs. 0oz. 101.198530no; 29.17 BMI Method:Stated Exam Exam Vital Signs Date Time Temp Pulse Resp B/P (MAP) Pulse Ox O2 Delivery O2 Flow Rate FiO2 03/12/20 07:00 75 03/12/20 06:44 117/72 03/12/20 06:00 72 11 109/65 (80) 95 Nasal Cannula 2.00 03/12/20 05:45 76 20 102/59 (73) 95 Nasal Cannula 2.00 03/12/20 05:32 36.2 03/12/20 05:30 77 30 59/34 (42) 93 Nasal Cannula 2.00 03/12/20 05:30 70 59/34 03/12/20 05:15 82 9 56/36 (43) 93 Nasal Cannula 2.00 03/12/20 05:00 85 15 79/49 (59) 92 Nasal Cannula 2.00 03/12/20 04:45 86 18 92 Nasal Cannula 2.00 03/12/20 04:30 84 10 72/55 (61) 94 Nasal Cannula 2.00 03/12/20 04:22 37.7 03/12/20 04:15 90 10 91/61 (71) 93 Nasal Cannula 2.00 03/12/20 04:00 89 21 76/48 (57) 93 Nasal Cannula 2.00 03/12/20 04:00 92 Nasal Cannula 2.00 03/12/20 03:57 90 34 85/52 (63) 96 Nasal Cannula 2.00 03/12/20 03:53 90 14 84/54 (64) 95 Nasal Cannula 2.00 03/12/20 03:46 38.3 03/12/20 03:22 38.9 03/12/20 03:18 97/65 (76) 03/12/20 03:15 38.3 03/12/20 03:11 38.9 03/12/20 03:00 39.1 03/12/20 01:00 91 03/12/20 00:10 38.0 86 16 91/50 (64) 92 Nasal Cannula 2.00 03/11/20 23:39 94 Nasal Cannula 2.00 03/11/20 23:35 94 Nasal Cannula 2.00 03/11/20 23:32 38.3 91 16 104/63 94 Nasal Cannula 2.00 2.00 03/11/20 23:05 38.3 91 16 104/63 (77) 94 Nasal Cannula 2.00 03/11/20 22:52 91 03/11/20 22:40 94 18 102/95 (97) 92 Room Air 03/11/20 22:08 37.1 96 18 97/59 (77) 93 Room Air 03/11/20 21:45 97 21 107/62 (77) 89 Room Air 03/11/20 21:00 94 18 118/100 (106) 94 Room Air 03/11/20 20:45 100 20 128/73 (91) 93 Nasal Cannula 2.00 03/11/20 20:30 93 18 120/69 (86) 94 Nasal Cannula 2.00 03/11/20 20:15 101 20 122/59 (80) 93 Nasal Cannula 2.00 03/11/20 20:02 37.2 98 25 109/68 (82) 90 Nasal Cannula 2.0 03/11/20 20:02 Nasal Cannula 2.0 03/11/20 20:02 90 Nasal Cannula 2.00 I & O 03/12/20 07:00 Intake Total 4960 ml Output Total 125 ml Balance 4835 ml Height & Weight Height: 6'0" Weight: 224lbs. 0oz. 101.471671iy; 29.17 BMI Method:Stated General Appearance: No Apparent Distress, WD/WN, Chronically ill, Other (no distress, heart rate is 97 normal sinus rhythm. Blood pressure is 120 systolic. Talks extensively about his chronic medical conditions. He believes the amiodarone is contributing to his current nausea and symptoms.) HEENT: PERRL/EOMI, TMs Normal Respiratory: Normal Breath Sounds, No Accessory Muscle Use, No Respiratory Distress Cardiovascular: Regular Rate, Rhythm, Normal Peripheral Pulses Capillary Refill: Less Than 3 Seconds Extremity: Normal Capillary Refill, Normal Inspection Neurologic/Psychiatric: Alert, Oriented x3 Skin: Normal Color, Warm/Dry Results Lab Laboratory Tests 03/11/20 20:11 03/12/20 03:00 Assessment/Plan Assessment/Plan Severe sepsis with septic shock -Pt has had 4 liters of IVF through the night -Currently on Levophed -LA is normal x 2 -Normal saline currently at 150 -Will place central line -Kay cultures pending -COVID is pending UTI with sepsis -Continue Rocephin renal failure -monitor Anemia -Monitor NSTEMI with CP -Cardiology following SHAD DUQUE DO Mar 12, 2020 08:00
--- NOTE | 2020-03-12 08:04 | Pulmonary Procedures ---
Pulmonary Procedures Date of Procedure Date of Service: Mar 12, 2020 Lumen: triple (US guided) Central Line Procedure: betadine prep, sterile drapes applied, sterile dressing applied Position: internal jugular (R) Anesthesia: Lidocaine Volume Anesthetic (ccs): 5 Complications: none Post Position: sutured, good blood return, position confirmed w/ CXR SHAD DUQUE DO Mar 12, 2020 08:04
--- NOTE | 2020-03-12 08:28 | Diagnostic Imaging Report ---
INDICATION: Central line placement. Time of exam: 7:11 AM Correlation is made with prior chest from 03/11/2020. Heart size is stable. A right IJ line has been placed and has the tip overlying the SVC. No pneumothorax is identified. There is bibasilar subsegmental atelectasis. There is no effusion. There is some density in the right upper lobe which may represent some mild infiltrate. IMPRESSION: 1. Right IJ line placement without pneumothorax. 2. Bibasilar subsegmental atelectasis. There is also some infiltrate or atelectasis right upper lobe. Dictated by: Dictated on workstation # [id number]
[2020-03-12] MEDS: APIXABAN 5 MG (ELIQUIS) TABLET PO SCH ×2 (08:49→21:49)
[2020-03-12] MEDS: ASPIRIN E.C. 81 MG (ECOTRIN) TAB PO SCH (08:49)
[2020-03-12] MEDS: IBUPROFEN 600 MG (MOTRIN) TAB PO PRN ×2 (13:18→23:49)
[2020-03-12] MEDS: oxyCODONE/APAP 5/325MG (PERCOCET 5) TABLET PO PRN ×2 (14:11→23:49)
[2020-03-12] MEDS ORDERED: OXYC10TA7 PO (15:47)
[2020-03-12] MEDS ORDERED: ALPR1TAB2 PO (15:47)
[2020-03-12] MEDS ORDERED: LEVO50TA6 PO (15:47)
--- NOTE | 2020-03-12 15:52 | NUR ---
I CALLED THE PATIENTS ROOM PHONE- THE NURSE WAS IN THE ROOM AND SHE ANSWERED BUT THE PT REFUSED TO TALK TO ME. I LET THE NURSE KNOW WHY I WAS CALLING AND QUESTIONS I HAD AND SHE TRIED TO ASK HIM BUT HE WOULDNT GIVE HER ANY INFORMATION. THERE WAS A MED LIST ON HIS CHART- SO I USED THAT, THE EXT MED HISTORY AND CALLED [facility] AND [facility] TO COMPLETE THE MED REC AMIODARONE 200MG: I PUT THE FILL DIRECTIONS IN THE NOTES ON THE MED REC. 2 TABS BID X 14 DAYS(PICKED UP ON 03-01-2020 & HE SHOULD STILL BE ON THESE DIRECTIONS) 1 TAB TID X 30 DAYS 2 TABS DAILY X 60 DAYS
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
[2020-03-12] MEDS ORDERED: cefTRIAXone 1,000 MG/SWFI 10 ML IV PUSH IV SCH ×2 (21:00)
[2020-03-12] MEDS ORDERED: cefTRIAXone 1,000 MG IV (ROCEPHIN) VIAL ONE (21:40)
[2020-03-12] MEDS ORDERED: WATER (STERILE) FOR INJECTION 10 ML ONE (21:40)
[2020-03-12 22:07] LABS: POTASSIUM 4.2 MMOL/L (3.6-5.0)
[2020-03-12 22:08] LABS: CALCIUM 7.9 MG/DL (8.5-10.1)
[2020-03-12 22:13] LABS: CREATININE SERUM 1.3 MG/DL (0.60-1.30)
[2020-03-13] VITALS (30 sets, daily range): BP systolic 84–160; BP diastolic 49–96
[2020-03-13] MEDS ORDERED: guaiFENesin/CODEINE (ROBITUSSIN AC) 10ML UDC PO PRN (01:30)
[2020-03-13] MEDS: NOREPINEPHRINE 4 MG/250 ML 250 ML IV SCH ×4 (03:34→23:04)
[2020-03-13 04:18] LABS: BASOPHILS % (AUTO) 0 % (0-10); EOSINOPHILS # (AUTO) 0.3 10^3/uL (0.0-0.3); EOSINOPHILS % (AUTO) 2 % (0-10); HEMATOCRIT 34 % (40-54); HEMOGLOBIN 11.2 G/DL (13.3-17.7); LYMPHOCYTES # (AUTO) 1.4 X 10^3 (1.0-4.0); LYMPHOCYTES % (AUTO) 7 % (12-44); MEAN CORPUSCULAR HEMOGLOBIN 28 PG (25-34); MEAN CORPUSCULAR HGB CONC 33 G/DL (32-36); MEAN CORPUSCULAR VOLUME 86 FL (80-99); MEAN PLATELET VOLUME 10.2 FL (7.4-10.4); MONOCYTES # (AUTO) 2.4 X 10^3 (0.0-1.0); MONOCYTES % (AUTO) 11 % (0-12); NEUTROPHILS # (AUTO) 17.3 X 10^3 (1.8-7.8); NEUTROPHILS % (AUTO) 80 % (42-75); PLATELET COUNT 332 10^3/uL (130-400); RED CELL DISTRIBUTION WIDTH 16.1 % (10.0-14.5); WHITE BLOOD COUNT 21.6 10^3/uL (4.3-11.0)
[2020-03-13] MEDS: NS IV 1000 ML 1,000 ML IV SCH (04:31)
[2020-03-13 04:36] LABS: POTASSIUM 4.4 MMOL/L (3.6-5.0)
[2020-03-13 04:37] LABS: CALCIUM 8.1 MG/DL (8.5-10.1)
[2020-03-13 04:42] LABS: CREATININE SERUM 1.4 MG/DL (0.60-1.30); PHOSPHORUS 3.1 MG/DL (2.3-4.7)
[2020-03-13 04:44] LABS: MAGNESIUM 1.9 MG/DL (1.6-2.4)
[2020-03-13 04:58] LABS: ACANTHOCYTES SLIGHT; BAND NEUTROPHILS 4 %; BURR CELLS SLIGHT; EOSINOPHILS % (MANUAL) 1 %; HYPOCHROMASIA SLIGHT; LYMPHOCYTES % (MANUAL) 11 %; MONOCYTES % (MANUAL) 10 %; NEUTROPHILS % (MANUAL) 74 %
[2020-03-13 04:59] LABS: ROULEAUX SLIGHT; SCHISTOCYTES SLIGHT
[2020-03-13] MEDS ORDERED: LACTATED RINGERS 2,000 ML IV ONE (05:50)
[2020-03-13] MEDS ORDERED: NS (IVPB) 100 ML ONE (05:52)
[2020-03-13] MEDS ORDERED: PIPERACILLIN/TAZO 4.5 GM VIAL (ZOSYN) IV ONE (05:52)
--- NOTE | 2020-03-13 05:54 | Pulmonary Progress Note ---
Subjective Time Seen by a Provider: 05:52 Subjective/Events-last exam Levophed turned off yesterday around 2200. Sepsis Event Evaluation Height, Weight, BMI Height: 6'0" Weight: 224lbs. 0oz. 101.556022go; 29.17 BMI Method:Stated Focused Exam Lactate Level 03/11/20 20:11: Lactic Acid Level 1.61 03/12/20 03:00: Lactic Acid Level 1.54 03/12/20 21:44: Lactic Acid Level 0.80 Exam Exam Vital Signs Date Time Temp Pulse Resp B/P (MAP) Pulse Ox O2 Delivery O2 Flow Rate FiO2 03/13/20 05:00 78 17 102/71 (81) 97 Nasal Cannula 2.00 03/13/20 04:10 96 Nasal Cannula 2.00 03/13/20 04:08 36.2 03/13/20 04:00 81 14 90/58 (69) 96 Nasal Cannula 2.00 03/13/20 03:00 82 12 90/69 (76) 96 Nasal Cannula 2.00 03/13/20 02:00 84 14 84/58 (67) 96 Nasal Cannula 2.00 03/13/20 01:23 37.1 03/13/20 01:00 93 16 112/49 (70) 94 Nasal Cannula 2.00 03/13/20 01:00 93 03/13/20 00:24 38.1 03/13/20 00:00 93 24 107/59 (75) 91 Nasal Cannula 2.00 03/12/20 23:57 90 Nasal Cannula 2.00 03/12/20 23:49 38.3 03/12/20 23:14 38.2 03/12/20 23:00 92 25 91/69 (76) 91 Nasal Cannula 2.00 03/12/20 22:32 111/70 03/12/20 22:00 92 15 114/66 (82) 66 Nasal Cannula 2.00 03/12/20 21:00 89 20 108/72 (84) 92 Nasal Cannula 2.00 03/12/20 20:30 71/26 03/12/20 20:08 102 35 121/52 (75) 96 Nasal Cannula 2.00 03/12/20 20:00 37.0 03/12/20 20:00 91 Nasal Cannula 2.00 03/12/20 19:00 78 03/12/20 19:00 78 11 92/70 (77) 97 Nasal Cannula 2.00 03/12/20 18:00 75 14 124/78 (93) 96 Room Air 03/12/20 17:00 80 16 112/75 (87) 96 Room Air 03/12/20 16:00 84 21 118/72 (87) 95 Room Air 03/12/20 15:37 37.3 03/12/20 15:36 86 98/62 03/12/20 15:00 90 20 107/70 (82) 94 Room Air 03/12/20 14:00 85 21 122/71 (88) 97 Room Air 03/12/20 13:21 38.6 89 22 105/76 (86) 94 Room Air 03/12/20 13:18 38.6 03/12/20 13:00 75 18 117/75 (89) 95 Nasal Cannula 2.00 03/12/20 12:22 70 03/12/20 12:00 71 15 114/71 (85) 98 Nasal Cannula 2.00 03/12/20 11:00 69 30 104/61 (75) 97 Nasal Cannula 2.00 03/12/20 10:00 66 14 96/55 (69) 96 Nasal Cannula 2.00 03/12/20 09:00 Nasal Cannula 2.00 03/12/20 09:00 71 14 93/53 (66) 93 Nasal Cannula 2.00 03/12/20 08:54 Nasal Cannula 03/12/20 08:00 94 Nasal Cannula 2.00 03/12/20 08:00 72 16 107/71 (83) 96 Nasal Cannula 2.00 03/12/20 07:00 73 13 104/58 (73) 95 Nasal Cannula 2.00 03/12/20 07:00 75 03/12/20 06:44 117/72 03/12/20 06:00 72 11 109/65 (80) 95 Nasal Cannula 2.00 I & O 03/13/20 07:00 Intake Total 2550 ml Output Total 450 ml Balance 2100 ml Height & Weight Height: 6'0" Weight: 224lbs. 0oz. 101.083815vy; 29.17 BMI Method:Stated General Appearance: WD/WN, Chronically ill, Severe Distress, Other (no distress, heart rate is 97 normal sinus rhythm. Blood pressure is 120 systolic. Talks extensively about his chronic medical conditions. He believes the amiodarone is contributing to his current nausea and symptoms.) HEENT: PERRL/EOMI, TMs Normal Respiratory: Accessory Muscle Use, Decreased Breath Sounds, Respiratory Distress, Stridor, Wheezing Cardiovascular: Normal Peripheral Pulses, Tachycardia Capillary Refill: Less Than 3 Seconds Gastrointestinal: non tender, soft Extremity: Normal Capillary Refill, Normal Inspection Neurologic/Psychiatric: Alert, Oriented x3 Skin: Normal Color, Warm/Dry Results Lab Laboratory Tests 03/11/20 20:11 03/12/20 03:00 03/12/20 21:44 03/13/20 04:12 Assessment/Plan Assessment/Plan Worsening respiratory failure -start precedex -Give ativan x 1 add morphine -Pt may need intubation. -give solumedrol 125mg IV x 1 then 40 q 6 Severe sepsis with septic shock - Levophed - is off -Normal saline currently at 150 -Change to LR -Give a liter bolus of LR secondary to low BP and decreased UO. -Kay cultures pending -COVID is negative -Repeat BC and change rocephin to Zosyn and add Vanco secondary to worsening leukocytosis and fever, rigors, chills. RUL pneumonia with new onset hemoptysis -Sputum collected today -Change Abx to Zoysn and Vanco -Check sputum AFB x 3 -Check TB gold -Add respiratory isolation -MRSA swab is pending -add SVNs UTI with Ecoli - Zosyn renal failure -monitor Anemia -Monitor NSTEMI with CP -Cardiology following UPDATE: Called back to room by RN secondary to worsening respiratory distress. Secondary to patients nausea, hemoptysis and subglottic wheeze/cough anesthesia called for intubation. Pt was intubated with size 8 ET tube. I was at bedside assisting with procedure. total time spent with pt including this mornings visit is 90min of ICU time. Critical Care: Critically Ill Patient Time spent with patient (mins): 90 SHAD DUQUE DO Mar 13, 2020 05:54
[2020-03-13] MEDS ORDERED: PIPERACILLIN/TAZOBACTAM (BULK) 4.5 GM in NS (IVPB) 100 ML IV ONE (06:00)
[2020-03-13] MEDS ORDERED: LACTATED RINGERS 1,000 ML IV SCH (06:00)
--- NOTE | 2020-03-13 06:00 | NUR ---
DR DUQUE AT BEDSIDE, PT HAS COUGHING FIT AND COUGHING UP SMALL TO MODERATE AMOUNT OF YOSEF RED SPUTUM. PT SHAKING UNCONTROLLABLY. PT TACHYPNEIC, DIAPHORETIC AND TACHYCARDIC. PT AGREEABLE TO INTUBATION. ORDERS FROM DR DUQUE TO INTUBATE.
[2020-03-13] MEDS: LACTATED RINGERS 1,000 ML IV SCH ×4 (06:02→22:46)
--- NOTE | 2020-03-13 06:18 | NUR ---
PT ENCOURAGED TO URINATE, PT REFUSED. DR DUQUE NOTIFIED OF LOW URINE OUTPUT.
[2020-03-13] MEDS: morphine INJ 4 MG/ML 1 ML (VIAL/SYRINGE) IVP PRN ×2 (06:22→20:45)
[2020-03-13] MEDS ORDERED: LORazepam INJ 2 MG/ML (ATIVAN) VIAL IVP ONE (06:38)
[2020-03-13] MEDS ORDERED: LORazepam INJ 2 MG/ML (ATIVAN) VIAL ONE (06:38)
[2020-03-13] MEDS ORDERED: morphine INJ 10 MG/ML 1ML (SYR OR VIAL) IVP STA (06:38)
[2020-03-13] MEDS ORDERED: DexMEDEtomidine 250 ML DRIP 250 ML IV ONE (06:39)
[2020-03-13] MEDS ORDERED: NS (IVPB) 250 ML ONE (06:40)
[2020-03-13] MEDS ORDERED: VANCOMYCIN 1000 MG/VIAL ONE (06:41)
[2020-03-13] MEDS: RT-ALBUTEROL/IPRATROPIUM 3 ML (DUONEB) VIAL INH SCH ×5 (06:42→22:24)
[2020-03-13] MEDS: RT-BUDESONIDE NEBS 0.5 MG/2ML (PULMICORT) AMP INH SCH ×2 (06:42→18:51)
[2020-03-13] MEDS ORDERED: LORazepam INJ 2 MG/ML (ATIVAN) VIAL IV PRN (06:45)
[2020-03-13] MEDS ORDERED: PHARMACY TO DOSE IV SCH (06:45)
[2020-03-13] MEDS ORDERED: methylPREDNISolone 125 MG (Solu-MEDROL) VIAL ONE (06:50)
[2020-03-13] MEDS: VANCOMYCIN INJECTION 1,000 MG in NS (IVPB) 250 ML IV SCH ×3 (06:51→08:30)
[2020-03-13] MEDS ORDERED: PROPOFOL DRIP (ICU) 100 ML IV ONE (06:56)
[2020-03-13] MEDS ORDERED: methylPREDNISolone 125 MG (Solu-MEDROL) VIAL IVP ONE (07:00)
--- NOTE | 2020-03-13 07:18 | NUR ---
PTD VANCOMYCIN LABS: SCR 1.4 (CRCL ~ 67) WBC 21.6 (14.4) CULTURES: PENDING (URINE HAS ECOLI) MRSA SWAB PENDING A/P: DR DUQUE ORDERED VANCOMYCIN 2 GRAMS (1GRAM IV Q1H X 2 DOSES) ALREADY STARTED BY NURSING. WILL CONTINUE WITH THE 2GRAM LOADING DOSE (~20MG/KG) AND THEN START THIS EVENING AT 1800 VANCOMYCIN 1,500MG IV Q12H. WILL CHECK A TROUGH LEVEL ON 03/14 @ 0500 (PRIOR TO 3RD DOSE) AND ADJUST IF NEEDED MONITOR CLOSELY DUE TO LOW URINE OUTPUT AND SCR/CRCL. MAY NEED TO BE CHANGED TO [id number] IF LEVEL IS ELEVATED.
--- NOTE | 2020-03-13 07:38 | Anesthesia-Procedure Note ---
Procedures/Interventions Procedure Start/Stop/Diagnosis Date of Procedure: Mar 13, 2020 Start Time: 07:00 Referring Physician: Dr Fox Preprocedural Diagnosis: Resp. Failure Brief History Called to ICU [address] Fox for urgent/emergent intubation. Pt with recent hemoptysis and current nausea. COVID neg x 2. Pre-oxygenate times 5 minutes. Stop Time: 07:10 Postprocedural Diagnosis: same Intubation Reason Intubation/Diagnosis: Resp Failure RSI: Yes 100% pre-Ox, [id number]: Yes Intubation Method: orotracheal Videoscope used: Yes ([place] X3) Grade View: 1 Medications: Propofol (150 mg), Succinylcholine (100 mg), Versed (2 mg) Mask Ventilation: negative Positive End Tide CO2: Yes Breath Sounds after Intubation: bilateral-equal ETT Securred @ (cm): 22 Intubated with ease: Yes Intubation Complications: no complications GEORGINA PRESLEY DO Mar 13, 2020 07:37
--- NOTE | 2020-03-13 08:10 | NUR ---
INTUBATION TIMELINE: 0708: DR. DUQUE AND ANESTHESIA IN ROOM. 0710: 2MG VERSED ADMINISTERED. 0712: 150MCG PROPOFOL ADMINISTERED FOLLOWED BY 100 OF SUCC. 0714: PT INTUBATED. LUNG SOUNDS ON BOTH SIDES, CO2 COLOR CHANGE. SIZE 8 ET TUBE, 22 AT TEETH, TV 450, RATE 24, PEEP 5 FIO2 65% 0717: PROPOFOL DRIP STARTED. PT MOVED TO [facility] PRESSURE ROOM WITH RT BAGGING. 0735: OG TUBE PLACED. 0740: MEEHAN CATHETER PLACED USING STERILE TECHNIQUE. PATENT AND DRAINING. 0750: X-RAY IN ROOM TO VERIFY TUBE PLACEMENT. 0800: RESTRAINTS ORDERED AND PLACED. PT TOLERATING INTUBATION.
[2020-03-13] MEDS: DexMEDEtomidine 250 ML DRIP 250 ML IV SCH ×2 (08:11→22:46)
[2020-03-13] MEDS: ASPIRIN E.C. 81 MG (ECOTRIN) TAB PO SCH (08:14)
[2020-03-13] MEDS ORDERED: PANTOPRAZOLE 40 MG (PROTONIX) VIAL ONE (08:20)
[2020-03-13] MEDS: PROPOFOL DRIP (ICU) 100 ML IV SCH ×2 (08:20→20:33)
--- NOTE | 2020-03-13 08:25 | Diagnostic Imaging Report ---
INDICATION: Intubation. TECHNIQUE: Single view chest 8:03 AM. CORRELATION STUDY: 03/13/2020 FINDINGS: Interval placement endotracheal tube. Tip superimposed over the trachea tip just below the level of the clavicles. Gastric tube is also in place. Tip likely just at or slightly distal to the gastroesophageal junction. Side-port superior to the junction. Right IJ central line remains in place tip at the high right para mediastinal region. Heart size remains enlarged. Mediastinum is prominent and appears increased from prior study. Increasing vascular congestion. Scattered pulmonary parenchymal densities are present particularly in the more central perihilar and basilar distribution. IMPRESSION: 1. Interval intubation and placement of gastric tube. Gastric tube is slightly proximal in position. 2. Cardiac enlargement with prominent mediastinum accentuated increased from prior study. There appears to be increasing severity of vascular congestion. 3. Scattered pulmonary parenchymal densities may reflect edema versus infiltrate. Follow-up imaging recommended. Dictated by: Dictated on workstation # [id number]
[2020-03-13] MEDS: LEVOTHYROXINE 50 MCG (LEVOTHROID) TAB PO SCH (08:33)
[2020-03-13] MEDS: PANTOPRAZOLE 40 MG (PROTONIX) VIAL IV SCH (08:33)
--- NOTE | 2020-03-13 08:33 | Diagnostic Imaging Report ---
INDICATION: Chest pain. Time of exam 4:24 AM Correlation is made with prior chest from one day earlier. Right IJ line has tip overlying the SVC. Bibasilar subsegmental atelectasis or infiltrate persists. There continues to be some minimal infiltrate right upper chest. No significant effusion or pneumothorax is seen. IMPRESSION: Overall similar appearance of chest with bilateral infiltrates/atelectasis when compared with exam one day earlier. Dictated by: Dictated on workstation # [id number]
[2020-03-13] MEDS: APIXABAN 5 MG (ELIQUIS) TABLET PO SCH ×2 (08:34→20:34)
[2020-03-13] MEDS ORDERED: LEVOTHYROXINE 25 MCG (LEVOTHROID) TAB PO SCH (09:00)
[2020-03-13] MEDS ORDERED: PANTOPRAZOLE 40 MG (PROTONIX) TAB PO SCH (09:00)
[2020-03-13 10:08] LABS: ABG BASE EXCESS -6.1 MMOL/L (-2.5-2.5); ABG OXYGEN SATURATION 79 % (94-100); ABG PCO2 52 MMHG (35-45); ABG PO2 50 MMHG (79-93); ABG TCO2 22.3 MMOL/L (21.0-31.0)
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
[2020-03-13 10:11] LABS: ABG PH 7.21 (7.37-7.43)
[2020-03-13 10:12] LABS: INSPIRED O2 65%; PATIENT TEMP 36.2; VENTILATOR YES
--- NOTE | 2020-03-13 11:32 | NUR ---
"Received dietary consult regarding pt's vent status. Est. kcal needs: [id number] kcal | 20-25 kcal/kg Est. Pro needs: 78-98 g Pro | 0.8-1.0 g Pro/kg Note pt is currently intubated/sedated. If pt is to remain NPO for more than 3days, would recommend the following TF: Jevity 1.5 at goal rate of 55ml/hr. Begin at 10ml/hr and increase by 10ml q6h as medically able and as tolerated. Monitor gastric residuals for tolerance. At goal rate, provides 1980 kcal (20 kcal/kg); 84 g Pro (0.9 g Pro/kg); and 1002ml free water. Flush with 75ml H2O q4h for hydration status. With flushes, provides 1452ml free water. Will continue to follow and reassess as pt needs, intake, and status change. Manohar Hauser, MS, RD, LD"
[2020-03-13] MEDS: PIPERACILLIN/TAZOBACTAM (BULK) 4.5 GM in NS (IVPB) 100 ML IV SCH ×2 (12:03→20:34)
[2020-03-13] MEDS: methylPREDNISolone 40 MG/ML (Solu-MEDROL) VIAL IV SCH ×3 (12:04→23:04)
[2020-03-13 12:08] LABS: ABG OXYGEN SATURATION 99 % (94-100); ABG PCO2 35 MMHG (35-45); ABG PO2 115 MMHG (79-93)
[2020-03-13 12:10] LABS: ABG PH 7.32 (7.37-7.43); ALLENS TEST YES-POS; PATIENT TEMP 37; VENTILATOR YES
[2020-03-13 12:11] LABS: INSPIRED O2 65%
--- NOTE | 2020-03-13 14:44 | Diagnostic Imaging Report ---
PROCEDURE: US Venous Lower Ext [place]. INDICATION: Chest pain, urinary tract infection, intubation, nausea and vomiting. TECHNIQUE: Grayscale with color-flow and Doppler waveform evaluation of the bilateral lower extremity deep venous systems. CORRELATION STUDY: None FINDINGS: Color and grayscale sonographic images demonstrate no intraluminal defect within the visualized portion of the common femoral, superficial femoral and/or popliteal veins to suggest thrombus formation. These vessels demonstrate normal response to compression and augmentation. No soft tissue fluid collection. IMPRESSION: 1. Negative for deep venous thrombosis of either leg. Dictated by: Dictated on workstation # [id number]
--- NOTE | 2020-03-13 15:10 | History & Physical ---
HPI History of Present Illness: Late entry H&P due to being COVID PUI, seen by [facility] only on first day of admission. 59 yo male admitted with chest pain and UTI, shortly after admission had high fevers, low blood pressure, septic shock. His BP did not improve with 4 liters of fluid, started on norepinephrine drip which was able to be discontin ued yesterday pm. However, this morning he had worsening work of breathing and hemoptysis and was intubated. Exam Limitations: clinical condition Date seen by provider: Mar 13, 2020 Time Seen by Provider: 10:00 Attending Physician Nahomi Roach MD PCP Center/[facility] Consult Date of Admission Mar 12, 2020 at 09:49 Home Medications Home Medications Reviewed patient Home Medication Reconciliation performed by pharmacy medication reconciliations tv technician and/or nursing. Patients Allergies have been reviewed. Allergies Uncoded Allergies: IV contrast (Allergy, Unknown, 03/11/20) NKG-Zqftzy-Cushxy Hx Patient Social History Alcohol Use: Denies Use Recreational Drug Use: No Smoking Status: Former Smoker Type Used: Cigarettes 2nd Hand Smoke Exposure: No Recent Foreign Travel: No Contact w/other who traveled: No Recent Hopitalizations: No Recent Infectious Disease Expo: No Immunizations Up To Date Tetanus Booster (TDap): Unknown Date of Pneumonia Vaccine: Jul 21, 2018 Date of Influenza Vaccine: Jul 21, 2018 Past Medical History PMHx: Hep C A fib HTN HLD Family Medical History Significant Family History: Heart Disease, Hypertension Review of Systems (CHC) Constitutional: fever, other (unable to obtain due to patient condition) Reviewed Test Results Reviewed Test Results Lab Laboratory Tests Test 03/11/20 20:11 03/11/20 21:05 03/11/20 21:35 03/12/20 03:00 Range/Units White Blood Count 14.4 H 15.8 H 4.3-11.0 10^3/uL Red Blood Count 4.79 4.57 4.35-5.85 10^6/uL Hemoglobin 13.4 12.8 L 13.3-17.7 G/DL Hematocrit 39 L 38 L 40-54 % Mean Corpuscular Volume 82 84 80-99 FL Mean Corpuscular Hemoglobin 28 28 25-34 PG Mean Corpuscular Hemoglobin Concent 34 34 32-36 G/DL Red Cell Distribution Width 15.7 H 16.1 H 10.0-14.5 % Platelet Count 437 H 420 H 130-400 10^3/uL Mean Platelet Volume 10.1 11.1 H 7.4-10.4 FL Neutrophils (%) (Auto) 83 H 77 H 42-75 % Lymphocytes (%) (Auto) 7 L 10 L 12-44 % Monocytes (%) (Auto) 9 12 0-12 % Eosinophils (%) (Auto) 2 1 0-10 % Basophils (%) (Auto) 0 0 0-10 % Neutrophils # (Auto) 11.9 H 12.1 H 1.8-7.8 X 10^3 Lymphocytes # (Auto) 1.0 1.6 1.0-4.0 X 10^3 Monocytes # (Auto) 1.3 H 2.0 H 0.0-1.0 X 10^3 Eosinophils # (Auto) 0.2 0.1 0.0-0.3 10^3/uL Basophils # (Auto) 0.0 0.1 0.0-0.1 10^3/uL Neutrophils % (Manual) 90 % Lymphocytes % (Manual) 3 % Monocytes % (Manual) 6 % Eosinophils % (Manual) 0 % Basophils % (Manual) 0 % Band Neutrophils 0 % Reactive Lymphocytes 1 % Poikilocytosis MODERATE Anisocytosis SLIGHT Elliptocytes SLIGHT Prothrombin Time 15.4 H 12.2-14.7 SEC INR Comment 1.2 0.8-1.4 Activated Partial Thromboplast Time 21 L 24-35 SEC Sodium Level 140 141 135-145 MMOL/L Potassium Level 3.5 L 3.8 3.6-5.0 MMOL/L Chloride Level 107 107 98-107 MMOL/L Carbon Dioxide Level 23 23 21-32 MMOL/L Anion Gap 10 11 5-14 MMOL/L Blood Urea Nitrogen 12 15 7-18 MG/DL Creatinine 1.41 H 1.69 H 0.60-1.30 MG/DL Estimat Glomerular Filtration Rate 51 41 BUN/Creatinine Ratio 9 9 Glucose Level 109 H 99 70-105 MG/DL Lactic Acid Level 1.61 1.54 0.50-2.00 MMOL/L Calcium Level 8.9 8.7 8.5-10.1 MG/DL Corrected Calcium 9.1 8.5-10.1 MG/DL Magnesium Level 2.0 2.0 1.6-2.4 MG/DL Total Bilirubin 0.5 0.1-1.0 MG/DL Aspartate Amino Transf (AST/SGOT) 15 5-34 U/L Alanine Aminotransferase (ALT/SGPT) 14 0-55 U/L Alkaline Phosphatase 89 40-136 U/L Myoglobin 91.3 10.0-92.0 NG/ML Troponin I 0.105 H 0.170 H <0.028 NG/ML B-Type Natriuretic Peptide 242.3 H <100.0 PG/ML Total Protein 6.2 L 6.4-8.2 GM/DL Albumin 3.7 3.2-4.5 GM/DL SARS-CoV-2 IgG Antibody Negative Negative Urine Color YELLOW Urine Clarity CLEAR Urine pH 7.5 5-9 Urine Specific [place] 1.015 L 1.016-1.022 Urine Protein NEGATIVE NEGATIVE Urine Glucose (UA) NEGATIVE NEGATIVE Urine Ketones NEGATIVE NEGATIVE Urine Nitrite NEGATIVE NEGATIVE Urine Bilirubin NEGATIVE NEGATIVE Urine Urobilinogen 2.0 < = 1.0 MG/DL Urine Leukocyte Esterase 3+ H NEGATIVE Urine RBC (Auto) TRACE-I NEGATIVE Urine RBC RARE /HPF Urine WBC 25-50 H /HPF Urine Squamous Epithelial Cells RARE /HPF Urine Crystals NONE /LPF Urine Bacteria MODERATE H /HPF Urine Casts NONE /LPF Urine Mucus SMALL H /LPF Urine Culture Indicated YES Urine Opiates Screen POSITIVE H NEGATIVE Urine Oxycodone Screen NEGATIVE NEGATIVE Urine Methadone Screen NEGATIVE NEGATIVE Urine Propoxyphene Screen NEGATIVE NEGATIVE Urine Barbiturates Screen NEGATIVE NEGATIVE Ur Tricyclic Antidepressants Screen NEGATIVE NEGATIVE Urine Phencyclidine Screen NEGATIVE NEGATIVE Urine Amphetamines Screen NEGATIVE NEGATIVE Urine Methamphetamines Screen NEGATIVE NEGATIVE Urine Benzodiazepines Screen POSITIVE H NEGATIVE Urine Cocaine Screen NEGATIVE NEGATIVE Urine Cannabinoids Screen NEGATIVE NEGATIVE Coronavirus (COVID-19)(PCR) Negative Negative Phosphorus Level 4.0 2.3-4.7 MG/DL Triglycerides Level 72 <150 MG/DL Cholesterol Level 104 < 200 MG/DL LDL Cholesterol Direct 63 1-129 MG/DL VLDL Cholesterol 14 5-40 MG/DL HDL Cholesterol 26 L 40-60 MG/DL Procalcitonin 0.48 H <0.10 NG/ML Test 03/12/20 21:44 03/13/20 04:12 03/13/20 06:01 03/13/20 08:40 Range/Units Sodium Level 140 140 135-145 MMOL/L Potassium Level 4.2 4.4 3.6-5.0 MMOL/L Chloride Level 111 H 112 H 98-107 MMOL/L Carbon Dioxide Level 21 20 L 21-32 MMOL/L Anion Gap 8 8 5-14 MMOL/L Blood Urea Nitrogen 18 21 H 7-18 MG/DL Creatinine 1.30 1.40 H 0.60-1.30 MG/DL Estimat Glomerular Filtration Rate 56 52 BUN/Creatinine Ratio 14 15 Glucose Level 128 H 111 H 70-105 MG/DL Lactic Acid Level 0.80 0.64 0.50-2.00 MMOL/L Calcium Level 7.9 L 8.1 L 8.5-10.1 MG/DL White Blood Count 21.6 H 4.3-11.0 10^3/uL Red Blood Count 4.01 L 4.35-5.85 10^6/uL Hemoglobin 11.2 L 13.3-17.7 G/DL Hematocrit 34 L 40-54 % Mean Corpuscular Volume 86 80-99 FL Mean Corpuscular Hemoglobin 28 25-34 PG Mean Corpuscular Hemoglobin Concent 33 32-36 G/DL Red Cell Distribution Width 16.1 H 10.0-14.5 % Platelet Count 332 130-400 10^3/uL Mean Platelet Volume 10.2 7.4-10.4 FL Neutrophils (%) (Auto) 80 H 42-75 % Lymphocytes (%) (Auto) 7 L 12-44 % Monocytes (%) (Auto) 11 0-12 % Eosinophils (%) (Auto) 2 0-10 % Basophils (%) (Auto) 0 0-10 % Neutrophils # (Auto) 17.3 H 1.8-7.8 X 10^3 Lymphocytes # (Auto) 1.4 1.0-4.0 X 10^3 Monocytes # (Auto) 2.4 H 0.0-1.0 X 10^3 Eosinophils # (Auto) 0.3 0.0-0.3 10^3/uL Basophils # (Auto) 0.0 0.0-0.1 10^3/uL Neutrophils % (Manual) 74 % Lymphocytes % (Manual) 11 % Monocytes % (Manual) 10 % Eosinophils % (Manual) 1 % Band Neutrophils 4 % Hypochromasia SLIGHT Tim Cells SLIGHT Acanthocytes SLIGHT Rouleau SLIGHT Schistocytes SLIGHT Phosphorus Level 3.1 2.3-4.7 MG/DL Magnesium Level 1.9 1.6-2.4 MG/DL Test 03/13/20 09:36 03/13/20 11:53 03/13/20 11:58 Range/Units Blood Gas Puncture Site LEFT RADIAL L RADIAL Blood Gas Patient Temperature 36.2 37 Arterial Blood pH 7.21 *L 7.32 *L 7.37-7.43 Arterial Blood Partial Pressure CO2 52 H 35 35-45 MMHG Arterial Blood Partial Pressure O2 50 L 115 H 79-93 MMHG Arterial Blood HCO3 21 L 18 L 23-27 MMOL/L Arterial Blood Total CO2 22.3 19.0 L 21.0-31.0 MMOL/L Arterial Blood Oxygen Saturation 79 L 99 94-100 % Arterial Blood Base Excess -6.1 L -7.0 L -2.5-2.5 MMOL/L Kevin Test NA YES-POS Blood Gas Ventilator Setting YES YES Blood Gas Inspired Oxygen 65% 65% Glucometer 138 H 70-110 MG/DL Physical Exam-(CHC) Physical Exam Vital Signs VS - Last 72 Hours, by Label 03/11/20 03/11/20 03/11/20 03/11/20 20:02 20:02 20:02 20:15 Temp 37.2 Pulse 98 101 Resp 20 B/P (MAP) 109/68 (82) 122/59 (80) Pulse Ox 90 90 93 O2 Delivery Nasal Cannula Nasal Cannula Nasal Cannula Nasal Cannula O2 Flow Rate 2.00 2.0 2.0 2.00 03/11/20 03/11/20 03/11/20 03/11/20 20:30 20:45 21:00 21:45 Pulse 93 100 94 97 Resp 18 20 18 21 B/P (MAP) 120/69 (86) 128/73 (91) 118/100 (106) 107/62 (77) Pulse Ox 94 93 94 89 O2 Delivery Nasal Cannula Nasal Cannula Room Air Room Air O2 Flow Rate 2.00 2.00 03/11/20 03/11/20 03/11/20 03/11/20 22:08 22:40 22:52 23:05 Temp 37.1 38.3 Pulse 96 94 91 91 Resp 18 16 B/P (MAP) 97/59 (77) 102/95 (97) 104/63 (77) Pulse Ox 93 92 94 O2 Delivery Room Air Room Air Nasal Cannula O2 Flow Rate 2.00 03/11/20 03/11/20 03/11/20 03/12/20 23:32 23:35 23:39 00:10 Temp 38.3 38.0 Pulse 91 86 Resp 16 16 B/P (MAP) 104/63 91/50 (64) Pulse Ox 94 94 94 92 O2 Delivery Nasal Cannula Nasal Cannula Nasal Cannula Nasal Cannula O2 Flow Rate 2.00 2.00 2.00 2.00 2.00 03/12/20 03/12/20 03/12/20 03/12/20 01:00 03:00 03:11 03:15 Temp 39.1 38.9 38.3 Pulse 91 03/12/20 03/12/20 03/12/20 03/12/20 03:18 03:22 03:46 03:53 Temp 38.9 38.3 Pulse 90 Resp 14 B/P (MAP) 97/65 (76) 84/54 (64) Pulse Ox 95 O2 Delivery Nasal Cannula O2 Flow Rate 2.00 03/12/20 03/12/20 03/12/20 03/12/20 03:57 04:00 04:00 04:15 Pulse 90 89 90 Resp 34 21 10 B/P (MAP) 85/52 (63) 76/48 (57) 91/61 (71) Pulse Ox 96 92 93 93 O2 Delivery Nasal Cannula Nasal Cannula Nasal Cannula Nasal Cannula O2 Flow Rate 2.00 2.00 2.00 2.00 03/12/20 03/12/20 03/12/20 03/12/20 04:22 04:30 04:45 05:00 Temp 37.7 Pulse 84 86 85 Resp 10 18 15 B/P (MAP) 72/55 (61) 79/49 (59) Pulse Ox 94 92 92 O2 Delivery Nasal Cannula Nasal Cannula Nasal Cannula O2 Flow Rate 2.00 2.00 2.00 03/12/20 03/12/20 03/12/20 03/12/20 05:15 05:30 05:30 05:32 Temp 36.2 Pulse 82 70 77 Resp 9 30 B/P (MAP) 56/36 (43) 59/34 59/34 (42) Pulse Ox 93 93 O2 Delivery Nasal Cannula Nasal Cannula O2 Flow Rate 2.00 2.00 03/12/20 03/12/20 03/12/20 03/12/20 05:45 06:00 06:44 07:00 Pulse 76 72 75 Resp 20 11 B/P (MAP) 102/59 (73) 109/65 (80) 117/72 Pulse Ox 95 95 O2 Delivery Nasal Cannula Nasal Cannula O2 Flow Rate 2.00 2.00 03/12/20 03/12/20 03/12/20 03/12/20 07:00 08:00 08:00 08:54 Pulse 73 72 Resp 13 16 B/P (MAP) 104/58 (73) 107/71 (83) Pulse Ox 95 96 94 O2 Delivery Nasal Cannula Nasal Cannula Nasal Cannula Nasal Cannula O2 Flow Rate 2.00 2.00 2.00 03/12/20 03/12/20 03/12/20 03/12/20 09:00 09:00 10:00 11:00 Pulse 71 66 69 Resp 14 14 30 B/P (MAP) 93/53 (66) 96/55 (69) 104/61 (75) Pulse Ox 93 96 97 O2 Delivery Nasal Cannula Nasal Cannula Nasal Cannula Nasal Cannula O2 Flow Rate 2.00 2.00 2.00 2.00 03/12/20 03/12/20 03/12/20 03/12/20 12:00 12:22 13:00 13:18 Temp 38.6 Pulse 71 70 75 Resp 15 18 B/P (MAP) 114/71 (85) 117/75 (89) Pulse Ox 98 95 O2 Delivery Nasal Cannula Nasal Cannula O2 Flow Rate 2.00 2.00 03/12/20 03/12/20 03/12/20 03/12/20 13:21 14:00 15:00 15:36 Temp 38.6 Pulse 89 85 90 86 Resp 22 21 20 B/P (MAP) 105/76 (86) 122/71 (88) 107/70 (82) 98/62 Pulse Ox 94 97 94 O2 Delivery Room Air Room Air Room Air 03/12/20 03/12/20 03/12/20 03/12/20 15:37 16:00 17:00 18:00 Temp 37.3 Pulse 84 80 75 Resp 21 16 14 B/P (MAP) 118/72 (87) 112/75 (87) 124/78 (93) Pulse Ox 95 96 96 O2 Delivery Room Air Room Air Room Air 03/12/20 03/12/20 03/12/20 03/12/20 19:00 19:00 20:00 20:00 Temp 37.0 Pulse 78 78 Resp 11 B/P (MAP) 92/70 (77) Pulse Ox 97 91 O2 Delivery Nasal Cannula Nasal Cannula O2 Flow Rate 2.00 2.00 03/12/20 03/12/20 03/12/20 03/12/20 20:08 20:30 21:00 22:00 Pulse 102 89 92 Resp 35 20 15 B/P (MAP) 121/52 (75) 71/26 108/72 (84) 114/66 (82) Pulse Ox 96 92 66 O2 Delivery Nasal Cannula Nasal Cannula Nasal Cannula O2 Flow Rate 2.00 2.00 2.00 03/12/20 03/12/20 03/12/20 03/12/20 22:32 23:00 23:14 23:49 Temp 38.2 38.3 Pulse 92 Resp 25 B/P (MAP) 111/70 91/69 (76) Pulse Ox 91 O2 Delivery Nasal Cannula O2 Flow Rate 2.00 03/12/20 03/13/20 03/13/20 03/13/20 23:57 00:00 00:24 01:00 Temp 38.1 Pulse 93 93 Resp 24 B/P (MAP) 107/59 (75) Pulse Ox 90 91 O2 Delivery Nasal Cannula Nasal Cannula O2 Flow Rate 2.00 2.00 03/13/20 03/13/20 03/13/20 03/13/20 01:00 01:23 02:00 03:00 Temp 37.1 Pulse 93 84 82 Resp 16 14 12 B/P (MAP) 112/49 (70) 84/58 (67) 90/69 (76) Pulse Ox 94 96 96 O2 Delivery Nasal Cannula Nasal Cannula Nasal Cannula O2 Flow Rate 2.00 2.00 2.00 03/13/20 03/13/20 03/13/20 03/13/20 04:00 04:08 04:10 05:00 Temp 36.2 Pulse 81 78 Resp 14 17 B/P (MAP) 90/58 (69) 102/71 (81) Pulse Ox 96 96 97 O2 Delivery Nasal Cannula Nasal Cannula Nasal Cannula O2 Flow Rate 2.00 2.00 2.00 603/13/20 03/13/20 03/13/20 06:00 06:17 06:42 07:00 Pulse 80 102 122 Resp 18 22 53 B/P (MAP) 91/49 (63) 120/64 (82) 119/86 (97) Pulse Ox 99 93 70 85 O2 Delivery Nasal Cannula Nasal Cannula Nasal Cannula Nasal Cannula O2 Flow Rate 2.00 2.00 2.00 2.00 03/13/20 03/13/20 03/13/20 03/13/20 07:01 07:44 08:00 08:00 Pulse 114 92 88 Resp 17 23 B/P (MAP) 109/68 (82) Pulse Ox 94 98 98 O2 Delivery Mechanical Ventilator Mechanical Ventilator O2 Flow Rate 65.00 FiO2 65 65 03/13/20 03/13/20 03/13/20 03/13/20 08:11 08:20 09:00 09:39 Pulse 80 80 86 85 Resp 15 18 B/P (MAP) 124/76 (92) Pulse Ox 96 98 O2 Delivery Mechanical Ventilator O2 Flow Rate 65.00 FiO2 65 03/13/20 03/13/20 03/13/20 03/13/20 10:00 10:39 11:00 12:00 Pulse 84 81 78 77 Resp 16 24 B/P (MAP) 145/89 (107) 134/81 160/96 (117) 117/77 (90) Pulse Ox 98 99 99 O2 Delivery Mechanical Ventilator Mechanical Ventilator Mechanical Ventilator O2 Flow Rate 65.00 65.00 65.00 03/13/20 03/13/20 03/13/20 03/13/20 12:00 12:40 13:00 14:00 Pulse 75 74 73 Resp 24 B/P (MAP) 120/81 (94) 119/87 (98) Pulse Ox 98 97 97 O2 Delivery Mechanical Ventilator Mechanical Ventilator Mechanical Ventilator O2 Flow Rate 65.00 65.00 FiO2 65 Capillary Refill : Less Than 3 Seconds General Appearance: other (intubated, sedated) Respiratory: rhonchi Cardiovascular: regular rate, rhythm, no murmur Gastrointestinal: normal bowel sounds, soft Extremities: no pedal edema Skin: normal color, warm/dry Assessment/Plan Assessment/Plan Admission Status: Inpatient Order (span 2 midnights) Reason for Inpatient Admission: Septic shock (1) Septic shock Status: Acute Assessment & Plan: Thought to be secondary to urinary tract infection. Off pressor therapy since 03/12 pm. Remains febrile and with leukocytosis. Abx changed from ceftriaxone broadened to zosyn and vancomycin due to worsening. (2) Urinary tract infection Status: Acute Assessment & Plan: E coli prelim, initially on ceftriaxone, changed to Zosyn and Vanc as noted above. (3) Atrial fibrillation Status: Chronic Assessment & Plan: Cardiology consulted, appreciate recommendations. Qualifiers: Qualified Codes: I48.0 - Paroxysmal atrial fibrillation (4) Respiratory failure Status: Acute Assessment & Plan: Intubated 03/13 am, appreciate Dr. Fox's recommendations. Sputum pending for TB and culture. COVID PCR neg. Qualifiers: Qualified Codes: J96.01 - Acute respiratory failure with hypoxia; J96.02 - Acute respiratory failure with hypercapnia (5) Elevated troponin Status: Acute Assessment & Plan: Cardiology consulted, appreciate recommendations (6) DVT prophylaxis Status: Acute Assessment & Plan: On Eliquis, held am of 03/13 due to hemoptysis. Clinical Quality Measures AMI/AHF: ASA po Prior to arrival: No DVT/VTE Risk/Contraindication: Risk Factor Score Per Nursin RFS Level Per Nursing on Admit: 4+=Very High NAHOMI ROACH MD Mar 13, 2020 15:10
[2020-03-13] MEDS ORDERED: MIDAZOLAM 5 MG/5 ML (VERSED) VIAL IJ ONE (15:30)
[2020-03-13] MEDS ORDERED: SUCCINYLCHOLINE INJ 100 MG/5 ML SYR INJ ONE (15:30)
--- NOTE | 2020-03-13 15:40 | NUR ---
This RN contacted next of kin listed to request consent for bronchoscopy in the AM due to pt being sedated. This RN explained pt condition and requested verbal consent via phone. Next of kin requested to call this nurse back.
--- NOTE | 2020-03-13 15:50 | NUR ---
This RN received phone call back from next of kin stating that "I am not the medical power of assistant prosecuting attorney and do not feel comfortable making decisions on his behalf. We have not spoken in years." This RN stated to next of kin "that is understandable, do you know of anyone else that we could call or if he does have a medical DPOA?" Next of kin stated no. This RN thanked next of kin and disconnected line. This RN contacted Dr. Fox and informed of situation. Dr. Fox stated to hold off on bronchoscopy at this time.
[2020-03-13 16:34] LABS: ABG BASE EXCESS -7.5 MMOL/L (-2.5-2.5); ABG OXYGEN SATURATION 77 % (94-100); ABG PCO2 42 MMHG (35-45); ABG PO2 49 MMHG (79-93); ABG TCO2 19.5 MMOL/L (21.0-31.0)
[2020-03-13 16:43] LABS: ABG PH 7.26 (7.37-7.43)
[2020-03-13 16:44] LABS: ALLENS TEST POS; INSPIRED O2 24; PATIENT TEMP 37.1; VENTILATOR YES
[2020-03-13] MEDS ORDERED: SODIUM BICARB 8.4% 50 MEQ/50 ML VIAL ONE (16:44)
--- NOTE | 2020-03-13 16:47 | Diagnostic Imaging Report ---
INDICATION: Respiratory failure. Portable chest at 04:35 p.m. FINDINGS: There is an ET tube projecting over the trachea. NG tube tip is at the GE junction. Right IJ central line tip projects over the SVC. There is some left basilar atelectasis. IMPRESSION: Left lower lobe atelectasis. NG tube tip is at the GE junction. Dictated by: Dictated on workstation # [id number]
[2020-03-13] MEDS ORDERED: SODIUM BICARB 8.4% 50 MEQ/50 ML VIAL IV ONE (17:00)
[2020-03-13] MEDS: VANCOMYCIN 1500 MG/NS 500 ML IVPB IV SCH ×2 (17:37)
[2020-03-13 17:51] LABS: ABG BASE EXCESS -7.5 MMOL/L (-2.5-2.5); ABG OXYGEN SATURATION 92 % (94-100); ABG PCO2 39 MMHG (35-45); ABG PO2 65 MMHG (79-93); ABG TCO2 19.2 MMOL/L (21.0-31.0)
[2020-03-13 17:54] LABS: ABG PH 7.28 (7.37-7.43); ALLENS TEST POS; INSPIRED O2 26; PATIENT TEMP 36.8; VENTILATOR YES
[2020-03-13] MEDS ORDERED: dilTIAZem DRIP PRE-MIX 125 ML IV SCH (18:00)
[2020-03-14] VITALS (29 sets, daily range): BP systolic 98–155; BP diastolic 62–93
[2020-03-14] MEDS: RT-ALBUTEROL/IPRATROPIUM 3 ML (DUONEB) VIAL INH SCH ×6 (02:20→22:10)
[2020-03-14] MEDS: PROPOFOL DRIP (ICU) 100 ML IV SCH ×4 (02:34→22:17)
[2020-03-14] MEDS: PIPERACILLIN/TAZOBACTAM (BULK) 4.5 GM in NS (IVPB) 100 ML IV SCH ×3 (04:09→19:56)
[2020-03-14 04:42] LABS: ABG BASE EXCESS -8.1 MMOL/L (-2.5-2.5); ABG OXYGEN SATURATION 97 % (94-100); ABG PCO2 36 MMHG (35-45); ABG PO2 93 MMHG (79-93); ABG TCO2 18.3 MMOL/L (21.0-31.0)
[2020-03-14 04:48] LABS: BASOPHILS % (AUTO) 0 % (0-10); EOSINOPHILS % (AUTO) 0 % (0-10); HEMATOCRIT 38 % (40-54); HEMOGLOBIN 12.5 G/DL (13.3-17.7); LYMPHOCYTES # (AUTO) 0.3 X 10^3 (1.0-4.0); LYMPHOCYTES % (AUTO) 1 % (12-44); MEAN CORPUSCULAR HGB CONC 33 G/DL (32-36); MEAN CORPUSCULAR VOLUME 84 FL (80-99); MEAN PLATELET VOLUME 10.7 FL (7.4-10.4); MONOCYTES # (AUTO) 0.9 X 10^3 (0.0-1.0); MONOCYTES % (AUTO) 4 % (0-12); NEUTROPHILS # (AUTO) 20.7 X 10^3 (1.8-7.8); NEUTROPHILS % (AUTO) 95 % (42-75); PLATELET COUNT 388 10^3/uL (130-400); RED CELL DISTRIBUTION WIDTH 16.7 % (10.0-14.5); WHITE BLOOD COUNT 21.8 10^3/uL (4.3-11.0)
[2020-03-14 04:51] LABS: POTASSIUM 3.6 MMOL/L (3.6-5.0)
[2020-03-14 04:52] LABS: CALCIUM 8.2 MG/DL (8.5-10.1)
[2020-03-14 04:53] LABS: ALLENS TEST YES-POS; INSPIRED O2 AC MODE; PATIENT TEMP 36.5; VENTILATOR YES
[2020-03-14 04:53] LABS: MEAN CORPUSCULAR HEMOGLOBIN 27 PG (25-34)
[2020-03-14 04:57] LABS: CREATININE SERUM 1.4 MG/DL (0.60-1.30); PHOSPHORUS 2.1 MG/DL (2.3-4.7)
[2020-03-14 04:59] LABS: MAGNESIUM 1.9 MG/DL (1.6-2.4)
[2020-03-14] MEDS ORDERED: TROUGH ORDER-PHARMACY XX ONE (05:00)
[2020-03-14] MEDS: NOREPINEPHRINE 4 MG/250 ML 250 ML IV SCH ×2 (05:26→12:02)
[2020-03-14] MEDS: POTASSIUM CL 10MEQ/50ML IVPB 50 ML IV SCH ×3 (05:27→06:14)
[2020-03-14] MEDS: MAGNESIUM 1 GM/100 ML IVPB 100 ML IV SCH (05:27)
[2020-03-14] MEDS: KCL 20 MEQ TAB (K-DUR) PO SCH (05:27)
--- NOTE | 2020-03-14 05:43 | Pulmonary Progress Note ---
Subjective Time Seen by a Provider: 05:35 Subjective/Events-last exam Pt is sedated on vent. Sepsis Event Evaluation Height, Weight, BMI Height: 6'0" Weight: 224lbs. 0oz. [id number]; 29.17 BMI Method:Stated Focused Exam Lactate Level 03/12/20 03:00: Lactic Acid Level 1.54 03/12/20 21:44: Lactic Acid Level 0.80 03/13/20 06:01: Lactic Acid Level 0.64 Exam Exam Vital Signs Date Time Temp Pulse Resp B/P (MAP) Pulse Ox O2 Delivery O2 Flow Rate FiO2 03/14/20 05:04 Mechanical Ventilator 85.00 03/14/20 05:00 79 25 109/69 (82) 95 Mechanical Ventilator 90.00 03/14/20 04:11 95 Mechanical Ventilator 95 03/14/20 04:00 80 26 107/68 (81) 96 Mechanical Ventilator 90.00 03/14/20 03:00 81 25 108/69 (82) 96 Mechanical Ventilator 90.00 03/14/20 02:34 100/65 03/14/20 02:23 78 26 95 90 03/14/20 02:00 77 25 104/67 (79) 96 Mechanical Ventilator 95.00 03/14/20 01:00 80 03/14/20 01:00 78 26 100/63 (75) 95 Mechanical Ventilator 95.00 03/14/20 00:00 80 26 98/63 (75) 95 Mechanical Ventilator 95.00 03/13/20 23:59 95 Mechanical Ventilator 95 03/13/20 23:17 95 95 03/13/20 23:07 Mechanical Ventilator 95.00 03/13/20 23:00 82 25 98/63 (75) 95 Mechanical Ventilator 100.00 03/13/20 22:46 82 03/13/20 22:30 77 26 95 100 03/13/20 22:00 77 25 96/63 (74) 95 Mechanical Ventilator 100.00 03/13/20 21:00 80 25 102/67 (79) 95 Mechanical Ventilator 100.00 03/13/20 20:33 96/65 03/13/20 20:32 36.1 03/13/20 20:00 86 25 101/66 (78) 94 Mechanical Ventilator 100.00 03/13/20 20:00 95 Mechanical Ventilator 100 03/13/20 19:00 83 6/24/20 19:00 82 26 106/69 (81) 94 Mechanical Ventilator 100.00 03/13/20 18:55 83 26 94 100 03/13/20 18:00 118 25 113/79 (90) 92 Mechanical Ventilator 100.00 03/13/20 17:00 112 26 113/78 (90) 92 Mechanical Ventilator 100.00 03/13/20 16:54 Mechanical Ventilator 100.00 03/13/20 16:43 135 90 03/13/20 16:03 89 100 03/13/20 16:00 98 24 108/66 (80) 89 Mechanical Ventilator 65.00 03/13/20 16:00 98 Mechanical Ventilator 65 03/13/20 15:15 71 24 96 65 03/13/20 15:00 71 24 106/66 (79) 96 Mechanical Ventilator 65.00 03/13/20 14:00 73 24 119/87 (98) 97 Mechanical Ventilator 65.00 03/13/20 13:00 74 23 120/81 (94) 97 Mechanical Ventilator 65.00 03/13/20 12:40 75 03/13/20 12:00 98 Mechanical Ventilator 65 03/13/20 12:00 77 24 117/77 (90) 99 Mechanical Ventilator 65.00 03/13/20 11:00 78 23 160/96 (117) 99 Mechanical Ventilator 65.00 03/13/20 10:39 81 134/81 03/13/20 10:00 84 16 145/89 (107) 98 Mechanical Ventilator 65.00 03/13/20 09:39 85 18 98 65 03/13/20 09:00 86 15 124/76 (92) 96 Mechanical Ventilator 65.00 03/13/20 08:20 80 03/13/20 08:11 80 03/13/20 08:00 88 23 109/68 (82) 98 Mechanical Ventilator 65.00 03/13/20 08:00 98 Mechanical Ventilator 65 03/13/20 07:44 92 17 94 65 03/13/20 07:01 114 03/13/20 07:00 122 53 119/86 (97) 85 Nasal Cannula 2.00 03/13/20 06:42 70 Nasal Cannula 2.00 03/13/20 06:17 102 22 120/64 (82) 93 Nasal Cannula 2.00 6/24/20 06:00 80 18 91/49 (63) 99 Nasal Cannula 2.00 I & O 03/14/20 07:00 Intake Total 1950 ml Output Total 1075 ml Balance 875 ml Height & Weight Height: 6'0" Weight: 224lbs. 0oz. 101.955294ng; 29.17 BMI Method:Stated General Appearance: WD/WN, Chronically ill, Moderate Distress, Other (sedated on vent) HEENT: PERRL/EOMI, TMs Normal Respiratory: Accessory Muscle Use, Decreased Breath Sounds, Respiratory Distress, Stridor, Wheezing Cardiovascular: Normal Peripheral Pulses, Tachycardia Capillary Refill: Less Than 3 Seconds Gastrointestinal: normal bowel sounds, soft Extremity: Normal Capillary Refill, Normal Inspection Neurologic/Psychiatric: Alert, Oriented x3 Skin: Normal Color, Warm/Dry Results Lab Laboratory Tests 03/12/20 21:44 03/13/20 04:12 03/14/20 04:15 Assessment/Plan Assessment/Plan Worsening respiratory failure -Propofol and precedex currently -solumedrol 40 q 6 -Duonebs Severe sepsis with septic shock - Levophed - is off -LR at 150 -Kay cultures pending -COVID is negative -Repeat BC and change rocephin to Zosyn and add Vanco secondary to worsening leukocytosis and fever, rigors, chills. RUL pneumonia with new onset hemoptysis -Was planning on bronchoscopy today however unable to get consent. -RN states there has not been any blood from ET tube -Continue Zoysn and Vanco -Check sputum AFB -Check TB gold -MRSA swab is pending Metabolic acidosis -Repeat LA -IVF UTI with Ecoli - Zosyn renal failure -monitor Anemia -Monitor NSTEMI with CP -Cardiology following SHAD DUQUE DO Mar 14, 2020 05:43
[2020-03-14] MEDS: inSUlin ASPART (NovoLOG) 1 UNIT/0.01 ML (CHARGE PER UNIT) SQ SCH ×4 (06:02→23:01)
[2020-03-14] MEDS: VANCOMYCIN 1500 MG/NS 500 ML IVPB IV SCH ×4 (06:03→16:25)
[2020-03-14] MEDS: LACTATED RINGERS 1,000 ML IV SCH ×3 (06:03→19:51)
[2020-03-14] MEDS: methylPREDNISolone 40 MG/ML (Solu-MEDROL) VIAL IV SCH ×4 (06:03→23:01)
[2020-03-14] MEDS: DexMEDEtomidine 250 ML DRIP 250 ML IV SCH ×3 (06:05→19:56)
--- NOTE | 2020-03-14 06:50 | NUR ---
NOTIFIED [facility] OF CRITICAL LABS, NO NEW ORDERS. WILL CONTINUE TO MONITOR.
--- NOTE | 2020-03-14 07:01 | Diagnostic Imaging Report ---
INDICATION: Respiratory failure. Comparison made with prior examination from 03/13/2020. FINDINGS: Heart size is normal. There is some venous congestion. There are patchy bibasal infiltrates. There is a left pleural effusion. There is no pneumothorax. Lines and tubes are in satisfactory position. IMPRESSION: Patchy bibasal infiltrates and a left pleural effusion. Mild central pulmonary venous congestion. Dictated by: Dictated on workstation # [id number]
[2020-03-14] MEDS: RT-BUDESONIDE NEBS 0.5 MG/2ML (PULMICORT) AMP INH SCH ×2 (07:13→19:22)
--- NOTE | 2020-03-14 08:00 | NUR ---
pt's og found to be coiled in mouth and back of throat. oral gastric tube removed and nasal gastric tube placed and gastric content noted in tubing.
[2020-03-14] MEDS: ASPIRIN E.C. 81 MG (ECOTRIN) TAB PO SCH (08:11)
[2020-03-14] MEDS: LEVOTHYROXINE 50 MCG (LEVOTHROID) TAB PO SCH (08:11)
[2020-03-14] MEDS: PANTOPRAZOLE 40 MG (PROTONIX) VIAL IV SCH (08:11)
[2020-03-14] MEDS: APIXABAN 5 MG (ELIQUIS) TABLET PO SCH ×2 (08:12→19:57)
--- NOTE | 2020-03-14 08:22 | Progress Note ---
Subjective Subjective/Events-last exam Remains intubated and sedated, has new lactic acidosis. Focused Exam Lactate Level 03/12/20 21:44: Lactic Acid Level 0.80 03/13/20 06:01: Lactic Acid Level 0.64 03/14/20 06:05: Lactic Acid Level 4.66*H Lactic Acid Level Laboratory Tests Test 03/14/20 06:05 Lactic Acid Level 4.66 MMOL/L (0.50-2.00) *H Objective Exam Last Set of Vital Signs Vital Signs Date Time Temp Pulse Resp B/P (MAP) Pulse Ox O2 Delivery O2 Flow Rate FiO2 03/14/20 08:00 Mechanical Ventilator 03/14/20 08:00 35.9 87 25 105/62 (76) 93 70.00 03/14/20 07:13 70 Capillary Refill : Less Than 3 Seconds I&O Intake and Output 03/14/20 00:00 Intake Total 3000 ml Output Total 925 ml Balance 2075 ml Intake Oral 50 ml IV Total 2890 ml Other 60 ml Output Urine Total 925 ml General: Other (sedated, moving right arm some) Lungs: Clear to Auscultation Heart: Regular Rate, No Murmurs Abdomen: Normal Bowel Sounds, Soft Extremities: Other (trace edema left leg) Results/Procedures Lab Laboratory Tests 03/13/20 08:40: 03/13/20 09:36: Blood Gas Puncture Site LEFT RADIAL, Blood Gas Patient Temperature 36.2, Arterial Blood pH 7.21*L, Arterial Blood Partial Pressure CO2 52H, Arterial Blood Partial Pressure O2 50L, Arterial Blood HCO3 21L, Arterial Blood Total CO2 22.3, Arterial Blood Oxygen Saturation 79L, Arterial Blood Base Excess -6.1L, Kevin Test NA, Blood Gas Ventilator Setting YES, Blood Gas Inspired Oxygen 65% 03/13/20 11:53: Blood Gas Puncture Site L RADIAL, Blood Gas Patient Temperature 37, Arterial Blood pH 7.32*L, Arterial Blood Partial Pressure CO2 35, Arterial Blood Partial Pressure O2 115H, Arterial Blood HCO3 18L, Arterial Blood Total CO2 19.0L, Arterial Blood Oxygen Saturation 99, Arterial Blood Base Excess -7.0L, Kevin Test YES-POS, Blood Gas Ventilator Setting YES, Blood Gas Inspired Oxygen 65% 03/13/20 11:58: Glucometer 138H 03/13/20 16:19: Blood Gas Puncture Site LFT RAD, Blood Gas Patient Temperature 37.1, Arterial Blood pH 7.26*L, Arterial Blood Partial Pressure CO2 42, Arterial Blood Partial Pressure O2 49L, Arterial Blood HCO3 18L, Arterial Blood Total CO2 19.5L, Arterial Blood Oxygen Saturation 77L, Arterial Blood Base Excess -7.5L, Kevin Test POS, Blood Gas Ventilator Setting YES, Blood Gas Inspired Oxygen 24 03/13/20 16:32: Glucometer 106 03/13/20 17:37: Glucometer 178H 03/13/20 17:42: Blood Gas Puncture Site LFT RAD, Blood Gas Patient Temperature 36.8, Arterial Blood pH 7.28*L, Arterial Blood Partial Pressure CO2 39, Arterial Blood Partial Pressure O2 65L, Arterial Blood HCO3 18L, Arterial Blood Total CO2 19.2L, Arterial Blood Oxygen Saturation 92L, Arterial Blood Base Excess -7.5L, Kevin Test POS, Blood Gas Ventilator Setting YES, Blood Gas Inspired Oxygen 26 03/13/20 23:03: Glucometer 237H 03/14/20 04:15: White Blood Count 21.8H, Red Blood Count 4.55, Hemoglobin 12.5L, Hematocrit 38L, Mean Corpuscular Volume 84, Mean Corpuscular Hemoglobin 27, Mean Corpuscular Hemoglobin Concent 33, Red Cell Distribution Width 16.7H, Platelet Count 388, Me an Platelet Volume 10.7H, Neutrophils (%) (Auto) 95H, Lymphocytes (%) (Auto) 1L, Monocytes (%) (Auto) 4, Eosinophils (%) (Auto) 0, Basophils (%) (Auto) 0, Neutrophils # (Auto) 20.7H, Lymphocytes # (Auto) 0.3L, Monocytes # (Auto) 0.9, Eosinophils # (Auto) 0.0, Basophils # (Auto) 0.0, Sodium Level 140, Potassium Level 3.6, Chloride Level 111H, Carbon Dioxide Level 16L, Anion Gap 13, Blood Urea Nitrogen 25H, Creatinine 1.40H, Estimat Glomerular Filtration Rate 52, BUN/Creatinine Ratio 18, Glucose Level 233H, Calcium Level 8.2L, Phosphorus Level 2.1L, Magnesium Level 1.9, Procalcitonin 2.37H, Vancomycin Level Trough 17.0 03/14/20 04:25: Blood Gas Puncture Site LEFT RADIAL, Blood Gas Patient Temperature 36.5, Arterial Blood pH 7.30*L, Arterial Blood Partial Pressure CO2 36, Arterial Blood Partial Pressure O2 93, Arterial Blood HCO3 17*L, Arterial Blood Total CO2 18.3L , Arterial Blood Oxygen Saturation 97, Arterial Blood Base Excess -8.1L, Kevin Test YES-POS, Blood Gas Ventilator Setting YES, Blood Gas Inspired Oxygen AC MODE 03/14/20 06:05: Lactic Acid Level 4.66*H Microbiology 03/13/20 Gram Stain - Final, Resulted 03/13/20 Sputum Culture, Resulted Pending 03/13/20 Blood Culture - Preliminary, Resulted No growth 03/11/20 Urine Culture - Final, Complete Escherichia coli Assessment/Plan Assessment/Plan (1) Septic shock Status: Acute Assessment & Plan: Thought to be secondary to urinary tract infection. Off pressor therapy since 03/12 pm. Remains febrile and with leukocytosis. Abx changed from ceftriaxone broadened to zosyn and vancomycin due to worsening. 03/14- blood pressure stable, but now has lactic acidosis, appreciate Dr. Fox recommendations. Continuing vanc and zosyn. Sputum culture pending. (2) Urinary tract infection Status: Acute Assessment & Plan: E coli prelim, initially on ceftriaxone, changed to Zosyn and Vanc as noted above. (3) Atrial fibrillation Status: Chronic Assessment & Plan: Cardiology consulted, appreciate recommendations. Qualifiers: Qualified Codes: I48.0 - Paroxysmal atrial fibrillation (4) Respiratory failure Status: Acute Assessment & Plan: Intubated 03/13 am, appreciate Dr. Fox's recommendations. Sputum pending for TB and culture. COVID PCR neg. Qualifiers: Qualified Codes: J96.01 - Acute respiratory failure with hypoxia; J96.02 - Acute respiratory failure with hypercapnia (5) Elevated troponin Status: Acute Assessment & Plan: Cardiology consulted, appreciate recommendations (6) Lactic acidosis Status: Acute Assessment & Plan: In spite of aggressive volume resuscitation, BP stabilized, currently on LR at 150 mls/hr, but has new lactic acidosis in spite of aggressive sepsis treatment and intubation. (7) DVT prophylaxis Status: [facility] & [facility] Clinical Quality Measures AMI/AHF: ASA po Prior to arrival: No DVT/VTE Risk/Contraindication: Risk Factor Score Per Nursin RFS Level Per Nursing on Admit: 4+=Very High NAHOMI FLORES MD Mar 14, 2020 08:22
[2020-03-14] MEDS ORDERED: POTASSIUM PHOSPHATE INJ 30 MM in NS (IVPB) 250 ML IV ONE (09:00)
[2020-03-14] MEDS ORDERED: LACTATED RINGERS 1,000 ML IV SCH (10:45)
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
[2020-03-14 16:56] LABS: RSV PCR TEST Not Detected (Not Detected)
[2020-03-15] VITALS (29 sets, daily range): BP systolic 129–155; BP diastolic 75–96
[2020-03-15] MEDS: PROPOFOL DRIP (ICU) 100 ML IV SCH ×4 (02:30→19:43)
[2020-03-15] MEDS: DexMEDEtomidine 250 ML DRIP 250 ML IV SCH ×4 (02:31→21:00)
[2020-03-15] MEDS: LACTATED RINGERS 1,000 ML IV SCH ×4 (02:31→21:00)
[2020-03-15] MEDS: RT-ALBUTEROL/IPRATROPIUM 3 ML (DUONEB) VIAL INH SCH ×6 (02:58→22:24)
[2020-03-15 03:03] LABS: ABG BASE EXCESS -3.2 MMOL/L (-2.5-2.5); ABG OXYGEN SATURATION 96 % (94-100); ABG PCO2 31 MMHG (35-45); ABG PH 7.43 (7.37-7.43); ABG PO2 76 MMHG (79-93); ABG TCO2 21.5 MMOL/L (21.0-31.0)
[2020-03-15 03:09] LABS: BASOPHILS % (AUTO) 0 % (0-10); HEMATOCRIT 35 % (40-54); HEMOGLOBIN 12.3 G/DL (13.3-17.7); LYMPHOCYTES # (AUTO) 0.2 X 10^3 (1.0-4.0); LYMPHOCYTES % (AUTO) 1 % (12-44); MEAN CORPUSCULAR HEMOGLOBIN 28 PG (25-34); MEAN CORPUSCULAR HGB CONC 35 G/DL (32-36); MEAN CORPUSCULAR VOLUME 82 FL (80-99); MEAN PLATELET VOLUME 10.7 FL (7.4-10.4); MONOCYTES # (AUTO) 1.6 X 10^3 (0.0-1.0); MONOCYTES % (AUTO) 5 % (0-12); PLATELET COUNT 398 10^3/uL (130-400); RED CELL DISTRIBUTION WIDTH 16.3 % (10.0-14.5)
[2020-03-15 03:09] LABS: ALLENS TEST YES-POS; INSPIRED O2 45%; VENTILATOR YES
[2020-03-15 03:11] LABS: WHITE BLOOD COUNT 35.3 10^3/uL (4.3-11.0)
[2020-03-15 03:14] LABS: NEUTROPHILS % (AUTO) 94 % (42-75)
[2020-03-15 03:15] LABS: EOSINOPHILS % (AUTO) 0 % (0-10); NEUTROPHILS # (AUTO) 33.3 X 10^3 (1.8-7.8)
[2020-03-15 03:29] LABS: BUN/CREATININE RATIO 22; CARBON DIOXIDE 18 MMOL/L (21-32); CHLORIDE 111 MMOL/L (98-107); CREATININE SERUM 1.01 MG/DL (0.60-1.30); GFR ESTIMATED > 60; GLUCOSE 148 MG/DL (70-105); MAGNESIUM 1.7 MG/DL (1.6-2.4); PHOSPHORUS 2.3 MG/DL (2.3-4.7); POTASSIUM 3.4 MMOL/L (3.6-5.0); SODIUM 139 MMOL/L (135-145); TRIGLYCERIDES 85 MG/DL (<150)
[2020-03-15 03:39] LABS: BAND NEUTROPHILS 4 %; LYMPHOCYTES % (MANUAL) 1 %; MONOCYTES % (MANUAL) 4 %; NEUTROPHILS % (MANUAL) 91 %; RBC MORPH NORMAL
[2020-03-15] MEDS: PIPERACILLIN/TAZOBACTAM (BULK) 4.5 GM in NS (IVPB) 100 ML IV SCH ×3 (04:01→19:42)
[2020-03-15] MEDS: POTASSIUM CL 10MEQ/50ML IVPB 50 ML IV SCH ×5 (04:05→07:01)
[2020-03-15] MEDS: MAGNESIUM 1 GM/100 ML IVPB 100 ML IV SCH ×3 (04:05→05:06)
[2020-03-15] MEDS: KCL 20 MEQ TAB (K-DUR) PO SCH (04:47)
[2020-03-15] MEDS: inSUlin ASPART (NovoLOG) 1 UNIT/0.01 ML (CHARGE PER UNIT) SQ SCH ×4 (04:53→23:12)
[2020-03-15] MEDS: VANCOMYCIN 1500 MG/NS 500 ML IVPB IV SCH ×4 (05:06→18:30)
[2020-03-15] MEDS: methylPREDNISolone 40 MG/ML (Solu-MEDROL) VIAL IV SCH ×4 (05:06→19:42)
--- NOTE | 2020-03-15 05:18 | Pulmonary Progress Note ---
Subjective Time Seen by a Provider: 05:10 Subjective/Events-last exam Pt is sedated on vent Sepsis Event Evaluation Height, Weight, BMI Height: 6'0" Weight: 224lbs. 0oz. 101.481643ps; 29.17 BMI Method:Stated Focused Exam Lactate Level 03/14/20 19:30: Lactic Acid Level 2.92*H 03/14/20 23:05: Lactic Acid Level 2.61*H 03/15/20 02:30: Lactic Acid Level 1.66 Lactic Acid Level Laboratory Tests Test 03/15/20 02:30 Lactic Acid Level 1.66 MMOL/L (0.50-2.00) Exam Exam Vital Signs Date Time Temp Pulse Resp B/P (MAP) Pulse Ox O2 Delivery O2 Flow Rate FiO2 03/15/20 05:00 81 25 138/89 (105) 96 Mechanical Ventilator 45.00 03/15/20 04:00 96 Mechanical Ventilator 45 03/15/20 04:00 82 25 142/91 (108) 96 Mechanical Ventilator 45.00 03/15/20 04:00 36.2 Mechanical Ventilator 45.00 03/15/20 03:02 85 26 96 45 03/15/20 03:00 83 25 145/91 (109) 96 Mechanical Ventilator 45.00 03/15/20 02:31 83 147/92 03/15/20 02:30 83 147/92 03/15/20 02:00 83 25 147/92 (110) 96 Mechanical Ventilator 45.00 03/15/20 01:00 87 26 150/92 (111) 96 Mechanical Ventilator 45.00 03/15/20 01:00 88 03/15/20 00:00 86 25 150/90 (110) 95 Mechanical Ventilator 45.00 03/15/20 00:00 95 Mechanical Ventilator 45 03/14/20 23:00 90 25 146/89 (108) 95 Mechanical Ventilator 45.00 03/14/20 22:50 35.9 Mechanical Ventilator 45.00 03/14/20 22:18 85 26 95 45 03/14/20 22:17 84 143/87 03/14/20 22:00 82 25 143/87 (105) 96 Mechanical Ventilator 45.00 03/14/20 21:00 82 26 137/87 (104) 96 Mechanical Ventilator 45.00 03/14/20 20:00 86 26 138/87 (104) 96 Mechanical Ventilator 45.00 03/14/20 20:00 94 Mechanical Ventilator 45 03/14/20 19:56 87 135/83 03/14/20 19:25 36.0 Mechanical Ventilator 45.00 03/14/20 19:20 80 26 94 45 03/14/20 19:00 81 26 153/90 (111) 96 Mechanical Ventilator 55.00 03/14/20 19:00 82 03/14/20 18:00 84 26 148/90 (109) 95 Mechanical Ventilator 55.00 03/14/20 17:00 86 26 149/83 (105) 95 Mechanical Ventilator 55.00 03/14/20 16:32 89 145/83 03/14/20 16:00 90 25 140/82 (101) 94 Mechanical Ventilator 55.00 03/14/20 16:00 96 Mechanical Ventilator 45 03/14/20 15:00 89 21 138/82 (100) 95 Mechanical Ventilator 55.00 03/14/20 14:30 84 26 94 45 03/14/20 14:21 80 137/81 03/14/20 14:20 80 137/81 03/14/20 14:00 84 26 137/81 (99) 94 Mechanical Ventilator 55.00 03/14/20 13:00 85 26 128/79 (95) 95 Mechanical Ventilator 55.00 03/14/20 12:47 86 03/14/20 12:00 96 Mechanical Ventilator 45 03/14/20 11:55 36.2 89 26 124/69 (87) 96 Mechanical Ventilator 55.00 03/14/20 11:00 89 26 121/71 (88) 97 Mechanical Ventilator 55.00 03/14/20 10:35 Mechanical Ventilator 55.00 03/14/20 10:32 91 26 95 60 03/14/20 10:00 89 14 108/62 (77) 93 Mechanical Ventilator 70.00 03/14/20 09:00 87 25 112/67 (82) 95 Mechanical Ventilator 70.00 03/14/20 08:00 Mechanical Ventilator 03/14/20 08:00 35.9 87 25 105/62 (76) 93 Mechanical Ventilator 70.00 03/14/20 07:13 87 26 95 70 03/14/20 07:00 88 25 107/64 (78) 95 Mechanical Ventilator 75.00 03/14/20 06:42 88 03/14/20 06:19 Mechanical Ventilator 75.00 03/14/20 06:05 80 107/67 03/14/20 06:00 79 25 95 03/14/20 06:00 80 26 104/65 (78) 95 Mechanical Ventilator 85.00 I & O 03/15/20 07:00 Intake Total 3615 ml Output Total 1110 ml Balance 2505 ml Height & Weight Height: 6'0" Weight: 224lbs. 0oz. 101.250435iz; 29.17 BMI Method:Stated General Appearance: WD/WN, Chronically ill, Other (sedated on vent) HEENT: PERRL/EOMI, TMs Normal Respiratory: Accessory Muscle Use, Decreased Breath Sounds, Respiratory Distress Cardiovascular: Normal Peripheral Pulses, Tachycardia Capillary Refill: Less Than 3 Seconds Gastrointestinal: normal bowel sounds, soft Extremity: Normal Capillary Refill, Normal Inspection Neurologic/Psychiatric: Alert, Oriented x3 Skin: Normal Color, Warm/Dry Lymphatic: No Adenopathy Results Lab Laboratory Tests 03/14/20 04:15 03/15/20 02:30 Assessment/Plan Assessment/Plan Acute respiratory failure -Propofol and precedex currently -Not ready to wean from vent yet. -Decrease PEEP to 12 from 14. -continue to titrate Fi02 down as tolerated. -solumedrol 40 decrease to Q12 -Check BNP and PCT -Duonebs -repeat COVID testing Worsening leukocytosis -Continue Vanco and Zosyn for now -decrease solumedrol to Q 12 -repeat UA and PCT -MRSA swab is negative -Doubt TB however TB gold is pending -Repeat COVID testing Severe sepsis with septic shock - Levophed - is off -LR at 150 -Kay cultures pending -COVID is negative -Continue Zosyn and Vanco pneumonia -RN states there has not been any blood from ET tube -Continue Zoysn and Vanco -Check sputum AFB - TB gold pending -MRSA swab is pending Bood appears to be coming from tongue bite not hemoptysis -No blood from OG or ET tube Metabolic lactic acidosis -- Improved -IVF UTI with Ecoli - Zosyn renal failure -monitor Anemia -Monitor NSTEMI with CP -Cardiology following SHAD DUQUE DO Mar 15, 2020 05:17
[2020-03-15 05:50] LABS: BILIRUBIN,URINE NEGATIVE (NEGATIVE); CLARITY,URINE CLEAR; COLOR,URINE YELLOW; GLUCOSE, URINE (UA) NEGATIVE (NEGATIVE); KETONES,URINE NEGATIVE (NEGATIVE); LEUKOCYTE ESTERASE ,URINE 1+ (NEGATIVE); NITRITE,URINE NEGATIVE (NEGATIVE); PH,URINE 6.5 (5-9); PROTEIN,URINE TRACE (NEGATIVE)
[2020-03-15 06:13] LABS: BACTERIA,URINE NEGATIVE /HPF; SQUAMOUS EPITHELIAL CELL,UR RARE /HPF
[2020-03-15] MEDS: RT-BUDESONIDE NEBS 0.5 MG/2ML (PULMICORT) AMP INH SCH ×2 (07:00→18:50)
[2020-03-15] MEDS: PANTOPRAZOLE 40 MG (PROTONIX) VIAL IV SCH (08:58)
[2020-03-15] MEDS ORDERED: SODIUM PHOSPHATE INJ 30 MM in NS (IVPB) 250 ML IV ONE (09:00)
[2020-03-15] MEDS ORDERED: ASPIRIN E.C. 81 MG (ECOTRIN) TAB PO ONE (09:12)
[2020-03-15] MEDS ORDERED: ASPIRIN 81 MG CHEW (CHILDREN'S ASA) ONE (09:15)
[2020-03-15] MEDS: APIXABAN 5 MG (ELIQUIS) TABLET PO SCH ×2 (09:18→19:42)
[2020-03-15] MEDS: LEVOTHYROXINE 50 MCG (LEVOTHROID) TAB PO SCH (09:18)
[2020-03-15] MEDS: ASPIRIN 81 MG CHEW (CHILDREN'S ASA) PO SCH (09:18)
--- NOTE | 2020-03-15 09:20 | Physician Query Clarification ---
PQ-Further Specificity Admission/Discharge Admission Date: Mar 12, 2020 at 09:49 Discharge Date: The medical record reflects the following clinical scenario: Dr. Flores, History/Risk Factors: Mild CAD Paroxysmal atrial fib Severe sepsis with septic shock Clinical Findings:Chest pressure. Troponin 0.105, 0.[address] Fox documented NSTEMI on his consult. Dr. Wilder documented, " Coronary angiography showed mild CAD, therefore, likely Type II OK." on his consult. On his plan he documented plague rupture vs Type II OK. Treatment:Nitrostat 0.4mg, Morphine injection 2 mg, Diltiazem HCI IV Q24H. Question: Can you further specify etiology of elevated troponin per the clinical indicators above? Please document a response in the Progress Notes or Discharge Summary. 1. NSTEMI 2. Type II OK 3. Other, with explanation of the clinical findings. 4. Clinically undetermined, no explanation for the clinical findings. PHYSICIAN RESPONSE Can you specify per above: 2 Please remember a lack of response to the above will prompt a phone page by CDI/Coding staff. In responding to this query, please exercise your independent professional judgment. The purpose of this communication is to more accurately reflect the complexity of your patients condition. The fact that a question is asked does not imply that any particular answer is desired or expected. Thank you for your timely response to this clarification. Requestors name: Saira Caal [facility] Phone # ext [phone] or [phone] THIS PHYSICIAN QUERY FORM IS A PERMANENT PART OF THE MEDICAL RECORD SAIRA CALA Mar 15, 2020 09:20 NAHOMI FLORES MD Mar 15, 2020 16:24
--- NOTE | 2020-03-15 09:42 | NUR ---
"RD FOLLOW-UP Est. kcal needs: 8926-2868 kcal | 20-25 kcal/kg Est. Pro needs: 78-98 g Pro | 0.8-1.0 g Pro/kg Note pt is currently NPO x2d, per chart review. If pt is to remain NPO for more than 3days, would recommend the following TF: Jevity 1.5 at goal rate of 55ml/hr. Begin at 10ml/hr and increase by 10ml q6h as medically able and as tolerated. Monitor gastric residuals for tolerance. At goal rate, provides 1980 kcal (20 kcal/kg); 84 g Pro (0.9 g Pro/kg); and 1002ml free water. Flush with 75ml H2O q4h for hydration status. With flushes, provides 1452ml free water. Will continue to follow and reassess as pt needs, intake, and status change. Manohar Hauser MS, RD, LD C: [phone]"
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
--- NOTE | 2020-03-15 13:06 | Progress Note ---
Subjective Subjective/Events-last exam Afebrile, FiO2 on vent down to 40%. BP trending up. Focused Exam Lactate Level 03/14/20 19:30: Lactic Acid Level 2.92*H 03/14/20 23:05: Lactic Acid Level 2.61*H 03/15/20 02:30: Lactic Acid Level 1.66 Objective Exam Last Set of Vital Signs Vital Signs Date Time Temp Pulse Resp B/P (MAP) Pulse Ox O2 Delivery O2 Flow Rate FiO2 03/15/20 12:21 36.5 03/15/20 12:09 93 Mechanical Ventilator 35 03/15/20 11:00 85 25 139/91 (107) 35.00 Capillary Refill : Less Than 3 Seconds I&O Intake and Output 03/15/20 00:00 Intake Total 2085 ml Output Total 1210 ml Balance 875 ml Intake Oral 0 ml IV Total 1985 ml Other 100 ml Output Urine Total 1210 ml General: Other (sedated, ventilated) Lungs: Clear to Auscultation, Normal Air Movement Heart: Regular Rate, No Murmurs Abdomen: Normal Bowel Sounds, Soft Extremities: Other (trace edema) Results/Procedures Lab Laboratory Tests 03/14/20 16:20: Lactic Acid Level 3.63*H 03/14/20 16:35: Glucometer 176H 03/14/20 18:05: Glucometer 153H 03/14/20 19:30: Lactic Acid Level 2.92*H 03/14/20 22:48: Glucometer 219H 03/14/20 23:05: Lactic Acid Level 2.61*H 03/15/20 02:30: Lactic Acid Level 1.66, White Blood Count 35.3*H, Red Blood Count 4.33L, Hemoglobin 12.3L, Hematocrit 35L, Mean Corpuscular Volume 82, Mean Corpuscular Hemoglobin 28, Mean Corpuscular Hemoglobin Concent 35, Red Cell Distribution Width 16.3H, Platelet Count 398, Mean Platelet Volume 10.7H, Neutrophils (%) (Auto) 94H, Lymphocytes (%) (Auto) 1L, Monocytes (%) (Auto) 5, Eosinophils (%) (Auto) 0, Basophils (%) (Auto) 0, Neutrophils # (Auto) 33.3H, Lymphocytes # (Auto) 0.2L, Monocytes # (Auto) 1.6H, Eosinophils # (Auto) 0.0, Basophils # (Auto) 0.0, Neutrophils % (Manual) 91, Lymphocytes % (Manual) 1, Monocytes % (Manual) 4, Band Neutrophils 4, Blood Morphology Comment NORMAL, Sodium Level 139, Potassium Level 3.4L, Chloride Level 111H, Carbon Dioxide Level 18L, Anion Gap 10, Blood Urea Nitrogen 22H, Creatinine 1.01, Estimat Glomerular Filtration Rate > 60, BUN/Creatinine Ratio 22, Glucose Level 148H, Calcium Level 8.0L, Phosphorus Level 2.3, Magnesium Level 1.7, B-Type Natriuretic Peptide 297.2H, Triglycerides Level 85, Procalcitonin 1.36H 03/15/20 02:40: Blood Gas Puncture Site LEFT RADIAL, Blood Gas Patient Temperature 36.0, Arterial Blood pH 7.43, Arterial Blood Partial Pressure CO2 31L, Arterial Blood Partial Pressure O2 76L, Arterial Blood HCO3 21L, Arterial Blood Total CO2 21.5, Arterial Blood Oxygen Saturation 96, Arterial Blood Base Excess -3.2L, Kevin Test YES-POS, Blood Gas Ventilator Setting YES, Blood Gas Inspired Oxygen 45% 03/15/20 03:30: 03/15/20 05:30: Urine Color YELLOW, Urine Clarity CLEAR, Urine pH 6.5, Urine Specific [place] 1.020, Urine Protein TRACEH, Urine Glucose (UA) NEGATIVE, Urine Ketones NEGATIVE, Urine Nitrite NEGATIVE, Urine Bilirubin NEGATIVE, Urine Urobilinogen 0.2, Urine Leukocyte Esterase 1+H, Urine RBC (Auto) NEGATIVE, Urine RBC 2-5H, Urine WBC 10-25H, Urine Squamous Epithelial Cells RARE, Urine Crystals NONE, Urine Bacteria NEGATIVE, Urine Casts NONE, Urine Mucus NEGATIVE, Urine Culture Indicated YES 03/15/20 05:35: 03/15/20 12:08: Glucometer 132H Microbiology 03/13/20 Gram Stain - Final, Complete 03/13/20 Sputum Culture - Final, Complete Usual upper respiratory laron 03/13/20 Blood Culture - Preliminary, Resulted No growth 03/11/20 Urine Culture - Final, Complete Escherichia coli Assessment/Plan Assessment/Plan (1) Septic shock Status: Acute Assessment & Plan: Thought to be secondary to urinary tract infection. Off pressor therapy since 03/12 pm. Remains febrile and with leukocytosis. Abx changed from ceftriaxone broadened to zosyn and vancomycin due to worsening. 03/14- blood pressure stable, but now has lactic acidosis, appreciate Dr. Fox recommendations. Continuing vanc and zosyn. Sputum culture pending. 03/15- Quantiferon gold neg, sputum culture with usual laron, blood culture with gram pos cocci. Repeat COVID PCR today, antibody pending. Lactic acid trending back down. WBC increasing but with lymphopenia concerning for COVID, repeat pending. (2) Urinary tract infection Status: Acute Assessment & Plan: E coli prelim, initially on ceftriaxone, changed to Zosyn and Vanc as noted above. E coli with no resistance. (3) Atrial fibrillation Status: Chronic Assessment & Plan: Cardiology consulted, appreciate recommendations. Qualifiers: Qualified Codes: I48.0 - Paroxysmal atrial fibrillation (4) Respiratory failure Status: Acute Assessment & Plan: Intubated 24 am, appreciate Dr. Fox's recommendations. Sputum pending for TB and culture. COVID PCR neg. 03/15 repeating COVID PCR. Sputum culture with usual laron. Remains intubated, appreciate Dr. Fox's recommendations. Qualifiers: Qualified Codes: J96.01 - Acute respiratory failure with hypoxia; J96.02 - Acute respiratory failure with hypercapnia (5) Elevated troponin Status: Acute Assessment & Plan: Cardiology consulted, appreciate recommendations. Echo with normal EF. (6) Lactic acidosis Status: Resolved Assessment & Plan: In spite of aggressive volume resuscitation, BP stabilized, currently on LR at 150 mls/hr, but has new lactic acidosis in spite of aggressive sepsis treatment and intubation. 03/15 improved. (7) DVT prophylaxis Status: Acute Assessment & Plan: On [facility] Clinical Quality Measures AMI/AHF: ASA po Prior to arrival: No DVT/VTE Risk/Contraindication: Risk Factor Score Per Nursin RFS Level Per Nursing on Admit: 4+=Very High NAHOMI FLORES MD Mar 15, 2020 13:06
--- NOTE | 2020-03-15 15:22 | NUR ---
CM/SS: As per consult related to no next of kin contact as son indicated he did not want to be contacted to make decisions on behalf of pt. Call to Elias Rice [phone] - listed as next of kin for pt. This worker left a message for Elias to call attempting to obtain some additional information on pt and contacts for medical decisions.
--- NOTE | 2020-03-15 15:57 | NUR ---
CM/SS: Return call from Elias Rice/Deborah Rice - [phone]- listed as next of kin per facesheet. They have made it clear they DO NOT want to be contacted about the patient. They have shared they do not have a relationship with him, and no longer want to be contacted. They were asked if there was someone else to contact, they have indicated they have no idea. This worker thanked them for returning the call.
--- NOTE | 2020-03-15 16:00 | NUR ---
CM/SS: DO NOT CONTACT MARTA GAFFNEY [phone] - about anything related to the pt. He does not have a relationship with the pt and has asked NOT to be contacted.
--- NOTE | 2020-03-15 22:04 | NUR ---
DR GARDUNO NOTIFIED OF PT COVID SWAB AND ANTIBODY TESTING COMING BACK NEGATIVE. ORDERS RECEIVED TO TAKE PT OUT OF ISOLATION.
[2020-03-16] VITALS (18 sets, daily range): BP systolic 146–168; BP diastolic 87–102
[2020-03-16] MEDS: PROPOFOL DRIP (ICU) 100 ML IV SCH ×3 (01:09→11:48)
[2020-03-16] MEDS: RT-ALBUTEROL/IPRATROPIUM 3 ML (DUONEB) VIAL INH SCH ×4 (02:22→13:25)
[2020-03-16 03:00] LABS: ABG BASE EXCESS -2.1 MMOL/L (-2.5-2.5); ABG OXYGEN SATURATION 98 % (94-100); ABG PCO2 32 MMHG (35-45); ABG PH 7.44 (7.37-7.43); ABG PO2 100 MMHG (79-93); ABG TCO2 22.4 MMOL/L (21.0-31.0)
[2020-03-16 03:01] LABS: BASOPHILS % (AUTO) 0 % (0-10); EOSINOPHILS % (AUTO) 0 % (0-10); HEMATOCRIT 36 % (40-54); HEMOGLOBIN 12.3 G/DL (13.3-17.7); LYMPHOCYTES # (AUTO) 0.3 X 10^3 (1.0-4.0); LYMPHOCYTES % (AUTO) 1 % (12-44); MEAN CORPUSCULAR HEMOGLOBIN 28 PG (25-34); MEAN CORPUSCULAR HGB CONC 34 G/DL (32-36); MEAN CORPUSCULAR VOLUME 81 FL (80-99); MEAN PLATELET VOLUME 10.5 FL (7.4-10.4); MONOCYTES # (AUTO) 1.3 X 10^3 (0.0-1.0); MONOCYTES % (AUTO) 5 % (0-12); NEUTROPHILS # (AUTO) 25.1 X 10^3 (1.8-7.8); NEUTROPHILS % (AUTO) 94 % (42-75); PLATELET COUNT 420 10^3/uL (130-400); RED CELL DISTRIBUTION WIDTH 16.5 % (10.0-14.5); WHITE BLOOD COUNT 26.7 10^3/uL (4.3-11.0)
[2020-03-16 03:06] LABS: ALLENS TEST YES-POS; INSPIRED O2 40%; PATIENT TEMP 37.2; VENTILATOR YES
[2020-03-16] MEDS: LACTATED RINGERS 1,000 ML IV SCH ×2 (03:12→10:28)
[2020-03-16] MEDS: PIPERACILLIN/TAZOBACTAM (BULK) 4.5 GM in NS (IVPB) 100 ML IV SCH ×2 (03:12→13:00)
[2020-03-16] MEDS: DexMEDEtomidine 250 ML DRIP 250 ML IV SCH ×2 (03:15→10:28)
[2020-03-16 03:20] LABS: BUN/CREATININE RATIO 28; CALCIUM 7.9 MG/DL (8.5-10.1); CARBON DIOXIDE 19 MMOL/L (21-32); CHLORIDE 114 MMOL/L (98-107); CREATININE SERUM 0.94 MG/DL (0.60-1.30); GFR ESTIMATED > 60; GLUCOSE 130 MG/DL (70-105); MAGNESIUM 2.2 MG/DL (1.6-2.4); PHOSPHORUS 2.7 MG/DL (2.3-4.7); POTASSIUM 3.9 MMOL/L (3.6-5.0); SODIUM 142 MMOL/L (135-145)
[2020-03-16] MEDS: POTASSIUM CL 10MEQ/50ML IVPB 50 ML IV SCH (03:26)
[2020-03-16] MEDS: MAGNESIUM 1 GM/100 ML IVPB 100 ML IV SCH (03:26)
[2020-03-16] MEDS: KCL 20 MEQ TAB (K-DUR) PO SCH (03:26)
[2020-03-16] MEDS: VANCOMYCIN 1500 MG/NS 500 ML IVPB IV SCH ×2 (04:47)
[2020-03-16] MEDS: inSUlin ASPART (NovoLOG) 1 UNIT/0.01 ML (CHARGE PER UNIT) SQ SCH ×2 (06:10→12:51)
[2020-03-16] MEDS: RT-BUDESONIDE NEBS 0.5 MG/2ML (PULMICORT) AMP INH SCH (06:33)
--- NOTE | 2020-03-16 07:53 | Diagnostic Imaging Report ---
Indication: Intubated, chest pain. Comparison: 03/14/2020 Findings: Single view of the chest demonstrate cardiac enlargement with worsening central vascular congestion and bibasilar atelectasis and effusion. There is no pneumothorax. Support devices are stable. Impression: Cardiac enlargement with worsening central vascular congestion, basilar atelectasis and effusion. Underlying pneumonia not excluded. Dictated by: Dictated on workstation # [id number]
[2020-03-16] MEDS: APIXABAN 5 MG (ELIQUIS) TABLET PO SCH (08:13)
[2020-03-16] MEDS: PANTOPRAZOLE 40 MG (PROTONIX) VIAL IV SCH (08:13)
[2020-03-16] MEDS: methylPREDNISolone 40 MG/ML (Solu-MEDROL) VIAL IV SCH (08:13)
[2020-03-16] MEDS: LEVOTHYROXINE 50 MCG (LEVOTHROID) TAB PO SCH (08:14)
[2020-03-16] MEDS: ASPIRIN 81 MG CHEW (CHILDREN'S ASA) PO SCH (08:14)
--- NOTE | 2020-03-16 09:57 | NUR ---
This RN received a call from a man stating he is Kota Rice and is the pt's son. He stated he has not talked to the pt in over a week and he was worried about him. I explained to this individual that there is not a password set up on this pt's account and that over the phone, without a password, I could tell him the patient is here and stable. This individual stated he lived one hour away in [facility] and asked if he needed to come to the hospital with ID to prove who he was. I told him that he did have that option. The individual on the phone then proceeded to tell this nurse, "Why don't you get off your lazy ass and fucking go in there and ask him." This RN explained to the person on the phone that this was not possible to which he responded, "Isn't that your fucking job? Get off your ass you bitch and fucking go in there." This RN then stated she would not tolerate being spoke to in that manner and that she would gladly continue the conversation when is was not hostile and verbally aggressive. The phone call ended. (although there is no documentation of this being a son as there is no one listed on the facecsheet or in the emergency contact by this name. Social service reported talking to a son named Elias on 03-15-2020. Elias told social media designer that he was unaware of any other kin to be contacted to make decisions for the patient at this time and that he did not wish to be contacted regarding the patient and wants nothing to do with this patient).
--- NOTE | 2020-03-16 11:48 | NUR ---
[facility] called et gave bed for room transfer - [id number]
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
--- NOTE | 2020-03-16 12:14 | NUR ---
Report called to GORDO Torres at [facility]
--- NOTE | 2020-03-16 12:34 | NUR ---
Notified [facility] need for transfer
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
== END 2020-03-16 14:10 | disposition short-term general hospital (02) | DRG 871 ==
LOC: EDUNIT# 19:58 → ER 19:59 → CSD 21:55 → ICU 03-12 03:45 → OBSVTOIN 03-12 09:49 → ICU 03-12 19:56
PROVIDERS: ADMIT Family Medicine; ATTEND Internal Medicine
PROC: 5A1945Z Respiratory Ventilation, 24-96 Consecutive Hours (ICD-10-PCS; principal; 2020-03-13)
PROC: 0BH17EZ Insertion of Endotracheal Airway into Trachea, Via Natural or Artificial Opening (ICD-10-PCS; 2020-03-13)
DX: A41.51 Sepsis due to Escherichia coli [E. coli] (principal); R65.21 Severe sepsis with septic shock; J18.9 Pneumonia, unspecified organism; J96.00 Acute respiratory failure, unspecified whether with hypoxia or hypercapnia; I21.A1 Myocardial infarction type 2; N39.0 Urinary tract infection, site not specified; R04.2 Hemoptysis; N17.9 Acute kidney failure, unspecified; E87.2 Acidosis; I25.10 Atherosclerotic heart disease of native coronary artery without angina pectoris; I48.0 Paroxysmal atrial fibrillation; D64.9 Anemia, unspecified; I10 Essential (primary) hypertension; E78.00 Pure hypercholesterolemia, unspecified; E03.9 Hypothyroidism, unspecified; M19.91 Primary osteoarthritis, unspecified site; F41.9 Anxiety disorder, unspecified; F32.9 Major depressive disorder, single episode, unspecified; G43.909 Migraine, unspecified, not intractable, without status migrainosus; N42.9 Disorder of prostate, unspecified; K57.90 Diverticulosis of intestine, part unspecified, without perforation or abscess without bleeding; K64.9 Unspecified hemorrhoids; Z20.828 Contact with and (suspected) exposure to other viral communicable diseases; Z86.711 Personal history of pulmonary embolism; Z79.01 Long term (current) use of anticoagulants; Z85.038 Personal history of other malignant neoplasm of large intestine; Z87.891 Personal history of nicotine dependence; Z86.19 Personal history of other infectious and parasitic diseases; Z90.81 Acquired absence of spleen
CPT/HCPCS: 36415; 36600; 71045; 74176; 80048; 80053; 80061; 80202; 80306; 81000; 82805; 82962; 83605; 83735; 83874; 83880; 84100; 84145; 84478; 84484; 85007; 85025; 85027; 85610; 85730; 86480; 86769; 87040; 87070; 87077; 87081; 87088; 87186; 87205; 87631; 87635; 93005; 93041; 93306; 93970; 94002; 94003; 94640; 94799; 96374; 96375; G0378

== ENCOUNTER 2020-03-28 23:29 | Emergency (ER) | payer MEDICAID ==
[~2020-03-28] VITALS: Ht 182.8 cm; Wt 88.0 kg
[~2020-03-28 23:29] MED LIST changes: +ALPR1TAB2 PO; +AMIO200T4 PO; +ATOR40TA70 PO; +DOFE125C4 PO; +LEVO50TA6 PO; +LISI10TA2 PO; +OXYC10TA7 PO
--- OUTSIDE RECORDS SUMMARY | 2020-03-28 23:37 | XMS REPORT | Clinical Summary ---
Author Author [facility] Organization [facility] Address Unknown Phone Unavailable Care Team Providers Care Analysis Intern Name Role Phone Sherman Spicer MD Unavailable Reyna Bond Unavailable Unavailable Indiana Bauer APRN PCP Unavailable Lenka Fuentes RN [phone] Unavailable Source Comments Some departments are not documenting in the electronic medical record. If you d o not see the information that you expected, contact [facility] Information [facility] Information Management department at [phone] for further assistan ce in locating additional records.[facility] Allergies Comments Active Allergy Reactions Severity Noted [...] mouth daily 30 minutes before breakfast. Active apixaban (ELIQUIS) 5 mg Take one 60 tablet 1 tablet tablet by 0 mouth twice daily. Active atorvastatin (LIPITOR) 40 Take one 90 tablet 0 mg tablet tablet by 0 mouth daily. Active lisinopriL (ZESTRIL) 10 Take one 90 tablet 3 mg tablet tablet by 0 mouth daily. Active Miscellaneous Medical automatic 1 each 0 1 Supply [facility] blood 0 pressure machine to monitor VS daily. Active amiodarone (CORDARONE) Take two 60 tablet 1 200 mg tablet tablets by 0 mouth daily. Take with food. 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 Active acetaminophen (TYLENOL) Take two 0 325 mg tablet tablets by 0 mouth every 4 hours as needed. This medication may be purchased from over the counter from your preferred pharmacy Active melatonin 5 mg tab Take one 0 tablet by 0 mouth at bedtime daily. Active senna (SENOKOT) 8.6 mg Take one 0 02 tablet tablet by 0 mouth twice daily. Active oxyCODONE (ROXICODONE) 10 Take one 12 tablet 0 mg tablet tablet by 0 mouth every 12 hours as needed Active dilTIAZem CD (CARDIZEM Take one 90 capsule 0 CD) 120 mg capsule capsule by 0 mouth daily. Active traZODone (DESYREL) 50 mg Take one 30 tablet 0 tablet tablet by 0 mouth at bedtime as needed. 03/27/2020 Discontinued oxyCODONE (ROXICODONE) 10 Take 10 mg by 0 mg tablet mouth every 3-4 hours as needed for Pain 03/01/2020 Discontinued (Patient's Suero ce) cyanocobalamin (VITAMIN [...] tablets by 0 tablet mouth twice daily. 03/27/2020 Discontinued (Reorder) amiodarone (CORDARONE) Take two 266 tablet 0 200 mg tablet tablets by 0 mouth twice daily for 14 days, THEN one tablet three times daily for 30 days, THEN two tablets daily for 60 days. Take with food. 03/23/2020 Discontinued (Removed from [facility] Med List) dofetilide (TIKOSYN) 125 Take 125 mcg 0 mcg capsule by mouth twice daily. 03/28/2020 Discontinued dilTIAZem CD (CARDIZEM Take one 90 capsule 0 CD) 120 mg capsule capsule by 0 mouth daily. 03/28/2020 Discontinued traZODone (DESYREL) 50 mg Take one 30 tablet 0 tablet tablet by 0 mouth at bedtime as needed. 03/28/2020 Discontinued traZODone (DESYREL) 50 mg Take one 30 tablet 0 tablet tablet by 0 mouth at bedtime as needed. 03/28/2020 Discontinued dilTIAZem CD (CARDIZEM Take one 90 capsule 0 CD) 120 mg capsule capsule by 0 mouth daily. Active Problems Patient Care Coordination Note Please complete a medical screening exam to rule out emergent issues. If no emergent needs are identified, please contact the MVP Team. 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 coli sepsis 03/16/2020 Type 2 NSTEMI (non-ST elevated myocardial infarction) [...] ablation of atrial fibrillation 12/14/2018 Overview: 08/05/18 [facility] - ED pre sented with palpitations, dyspnea, chest pain, "foing to pass out". SVT v s AF rate 220 - 250 bpm. given lopressor 5 mg IVP. negative cardiac enzymes. 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 coli sepsis (HCC) 03/16/2020 Hospital - Encounter 03/28/2020 03/16/2020 Hospital Radiology Encounter 03/16/2020 Travel Cristi Colin MD 03/15/2020 Orders Only Lab 03/14/2020 Hospital Radiology Encounter 03/13/2020 Hospital Radiology Encounter 03/13/2020 Hospital Radiology Encounter 03/13/2020 Hospital Radiology Encounter 03/13/2020 Hospital Radiology Encounter 03/12/2020 Hospital Radiology Encounter Ya Howard, GORDO Nausea (lm that n/v after taking medicat ion, attempted to c/b - line disconnected) 03/12/2020 Telephone Cardiology 03/11/2020 Hospital Radiology Encounter 03/11/2020 Hospital Radiology Encounter Ya Howard RN Follow Up (unsure of [...] (Eliquis hold ) 02/01/2020 Telephone Cardiology Patrick Constantino RN Tachycardia 01/24/2020 Telephone Cardiology Patrick Constantino RN Follow Up (Pt requested MPE to see [facility] hospital room. EP consulted, RRR rounding today.) 01/18/2020 Telephone Cardiology Lev Rodriguez MD Owens, Steven D, MD Atrial flutter with rapid ventricular re sponse (HCC) 01/17/2020 Hospital - Encounter 01/22/2020 01/17/2020 Hospital Radiology Encounter 01/17/2020 Ya Abebe RN Follow-up Phone Call (returned call, lm [...] history available. Date Recorded COVID-19 Exposure Response 03/27/2020 6:26 AM CDT In the last month, have you been in contact with [facility] to assess someone who was confirmed or suspected to have Coronavirus / COVID-19? Last Filed Vital Signs Reading Time Taken Comments Vital Sign 135/82 03/28/2020 12:09 PM CDT Blood Pressure 81 03/28/2020 12:09 PM CDT Pulse 36.8 C (98.2 F) 03/28/2020 12:09 PM CDT Temperature - - Respiratory Rate 96% 03/28/2020 12:09 PM CDT Oxygen Saturation - - Inhaled Oxygen Concentration 91.4 kg (201 lb 8 oz) 03/28/2020 4:00 AM CDT Weight 182.9 cm (6') 03/18/2020 7:27 AM CDT Height 27.33 03/18/2020 7:27 AM CDT Body Mass Index Plan of Treatment Health Maintenance Due Date Last Done Comments HIV SCREENING 1973 DTAP/TDAP VACCINES (1 - 1976 Tdap) HEPATITIS C SCREENING 1976 PHYSICAL (COMPREHENSIVE) 1976 EXAM COLORECTAL CANCER 2008 SCREENING SHINGLES RECOMBINANT 2008 VACCINE (1 of 2) INFLUENZA VACCINE 06/20/2020 06/20/2018 Goals Goal Patient Associated Recent Progress Patient-Stat Aut hor Goal Type Problems ed? GOAL General No Tana Saldivar, GORDO Note: Get stronger Take Medication at Right Time, Medication No Lind, Right Day, Right Order, With Adherence Danilo Moseley N or Without Food Correctly Procedures Comments Procedure Name Priority Date/Time Associated Diag nosis MULTI GATED Routine 03/27/2020 2:17 PM CDT HC MAGNESIUM Routine 03/27/2020 4:48 AM CDT HC COMPREHENSIVE Routine 03/27/2020 METABOLIC PANEL 4:48 AM CDT HC CBC W/ AUTOMATED DIFF Routine 03/27/2020 4:48 AM CDT HC MAGNESIUM Routine 03/26/2020 4:31 AM CDT HC COMPREHENSIVE Routine 03/26/2020 METABOLIC PANEL 4:31 AM CDT HC CBC W/ AUTOMATED DIFF Routine 03/26/2020 4:31 AM CDT TROPONIN-I STAT 03/26/2020 3:15 AM CDT HC TROPONIN-I STAT 03/26/2020 12:45 AM CDT ECG 12-LEAD STAT 03/26/2020 12:26 AM CDT HC MAGNESIUM Routine 03/25/2020 4:48 AM CDT HC COMPREHENSIVE Routine 03/25/2020 METABOLIC PANEL 4:48 AM CDT HC CBC W/ AUTOMATED DIFF Routine 03/25/2020 4:48 AM CDT HC MAGNESIUM Routine 03/24/2020 4:00 AM CDT HC COMPREHENSIVE Routine 03/24/2020 METABOLIC PANEL 4:00 AM CDT HC CBC W/ AUTOMATED DIFF Routine 03/24/2020 4:00 AM CDT HC TROPONIN-I Routine 03/24/2020 12:40 AM CDT ECG 12-LEAD Routine 03/23/2020 11:06 PM CDT HC MAGNESIUM Routine 03/23/2020 4:12 AM CDT HC COMPREHENSIVE Routine 03/23/2020 METABOLIC PANEL 4:12 AM CDT HC CBC W/ AUTOMATED DIFF Routine 03/23/2020 4:12 AM CDT HC MAGNESIUM STAT 03/22/2020 2:10 PM CDT BASIC METABOLIC PANEL Routine 03/22/2020 2:10 PM CDT HC MAGNESIUM Routine 03/22/2020 7:55 AM CDT HC BASIC METABOLIC PANEL Routine 03/22/2020 7:55 AM CDT HC MAGNESIUM Routine 03/22/2020 4:00 AM CDT HC COMPREHENSIVE Routine 03/22/2020 METABOLIC PANEL 4:00 AM CDT HC CBC W/ AUTOMATED DIFF Routine 03/22/2020 4:00 AM CDT CONSULT IV THERAPY TEAM Routine 03/21/2020 7:50 PM CDT CHEST SINGLE VIEW Routine 03/21/2020 5:40 PM CDT HC MAGNESIUM Routine 03/21/2020 5:15 PM CDT HC BASIC METABOLIC PANEL Routine 03/21/2020 5:15 PM CDT TROPONIN-I Routine 03/21/2020 1:55 PM CDT HC TP/CR RATIO, RANDOM Routine 03/21/2020 1:55 PM CDT HC TROPONIN-I 03/21/2020 3:15 AM CDT HC MAGNESIUM Routine 03/21/2020 3:15 AM CDT HC COMPREHENSIVE Routine 03/21/2020 METABOLIC PANEL 3:15 AM CDT HC CBC W/ AUTOMATED DIFF Routine 03/21/2020 3:15 AM CDT TROPONIN-I STAT 03/20/2020 7:33 PM CDT HC TROPONIN-I Add on 03/20/2020 2:10 PM CDT HC MAGNESIUM STAT 03/20/2020 2:10 PM CDT HC BASIC METABOLIC PANEL STAT 03/20/2020 2:10 PM CDT HC BLOOD Routine 03/20/2020 GASES;(CALCULATED 02) 8:36 AM CDT CHEST SINGLE VIEW Routine 03/20/2020 8:29 AM CDT HC MAGNESIUM Routine 03/20/2020 4:45 AM CDT HC COMPREHENSIVE Routine 03/20/2020 METABOLIC PANEL 4:45 AM CDT HC CBC W/ AUTOMATED DIFF Routine 03/20/2020 4:45 AM CDT HC TSH(THYROID Routine 03/19/2020 STIMULATING HORM) 3:58 AM CDT HC TRIGLYCERIDE Routine 03/19/2020 3:58 AM CDT HC BLOOD Routine 03/19/2020 GASES;(CALCULATED 02) 3:58 AM CDT HC MAGNESIUM Routine 03/19/2020 3:58 AM CDT HC COMPREHENSIVE Routine 03/19/2020 METABOLIC PANEL 3:58 AM CDT HC CBC W/ AUTOMATED DIFF Routine 03/19/2020 3:58 AM CDT CONSULT IV THERAPY TEAM STAT 03/18/2020 8:38 PM CDT CBC STAT 03/18/2020 12:10 PM CDT HC CALCIUM IONIZED Routine 03/18/2020 9:45 AM CDT HC PHOSPHOROUS, SERUM STAT 03/18/2020 9:45 AM CDT HC MAGNESIUM STAT 03/18/2020 9:45 AM CDT BASIC METABOLIC PANEL STAT 03/18/2020 9:45 AM CDT 2D + DOPPLER ECHO W/ Routine 03/18/2020 CONTRAST 7:27 AM CDT HC BLOOD Routine 03/18/2020 GASES;(CALCULATED 02) 7:25 AM CDT CHEST SINGLE VIEW Routine 03/18/2020 5:23 AM CDT HC MAGNESIUM Routine 03/18/2020 4:30 AM CDT HC COMPREHENSIVE Routine 03/18/2020 METABOLIC PANEL 4:30 AM CDT HC CBC W/ AUTOMATED DIFF Routine 03/18/2020 4:30 AM CDT HC BASIC METABOLIC PANEL STAT 03/18/2020 1:38 AM CDT HC B-TYPE NATRIURETIC STAT 03/18/2020 PEPTIDE 1:38 AM CDT HC MAGNESIUM STAT 03/18/2020 1:38 AM CDT CULTURE-BLOOD Routine 03/17/2020 W/SENSITIVITY 10:00 PM CDT HC CULTURE-BLOOD Routine 03/17/2020 10:00 PM CDT HC MAGNESIUM Routine 03/17/2020 1:24 PM CDT HC BASIC METABOLIC PANEL Routine 03/17/2020 1:24 PM CDT HC BLOOD Routine 03/17/2020 GASES;(CALCULATED 02) 8:50 AM CDT HC PROLCALCITONIN (PROCA) Add on 03/17/2020 2:50 AM CDT HC MAGNESIUM Routine 03/17/2020 2:50 AM CDT HC COMPREHENSIVE Routine 03/17/2020 METABOLIC PANEL 2:50 AM CDT HC CBC W/ AUTOMATED DIFF Routine 03/17/2020 2:[address] ABD/PELV WO CONTRAST STAT 03/16/2020 9:[address] CHEST WO CONTRAST STAT 03/16/2020 9:43 PM CDT HC VANCOMYCIN-TIMED STAT 03/16/2020 8:07 PM CDT HC LACTIC ACID - BG STAT 03/16/2020 SYRINGE 8:07 PM CDT URINALYSIS, MICROSCOPIC Routine 03/16/2020 5:30 PM CDT HC URINALYSIS, AUTO W Routine 03/16/2020 MICRO 5:30 PM CDT HC TRIGLYCERIDE Add on 03/16/2020 5:26 PM CDT HC LIPASE STAT 03/16/2020 5:26 PM CDT HC B-TYPE NATRIURETIC Routine 03/16/2020 PEPTIDE 5:26 PM CDT HC PHOSPHOROUS, SERUM Routine 03/16/2020 5:26 PM CDT HC MAGNESIUM Routine 03/16/2020 5:26 PM CDT HC BLOOD STAT 03/16/2020 GASES;(CALCULATED 02) 5:26 PM CDT HC COMPREHENSIVE Routine 03/16/2020 METABOLIC PANEL 5:26 PM CDT HC PTT(APTT) Routine 03/16/2020 5:26 PM CDT HC PT(INR) Routine 03/16/2020 5:26 PM CDT HC CBC W/ AUTOMATED DIFF Routine 03/16/2020 5:26 PM CDT HC CULTURE-BLOOD Routine 03/16/2020 5:24 PM CDT HC CULTURE-LOWER RESP Routine 03/16/2020 4:55 PM CDT HC GRAM STAIN 03/16/2020 4:55 PM CDT CULTURE-BLOOD Routine 03/16/2020 W/SENSITIVITY 3:26 PM CDT GENERAL RAD CHEST Routine 03/16/2020 EXTERNAL IMAGING 10:53 AM CDT ECG-SCAN 03/16/2020 12:00 AM CDT ECG-SCAN 03/16/2020 12:00 AM CDT ECG-SCAN 03/16/2020 12:00 AM CDT ECG-SCAN 03/16/2020 12:00 AM CDT ECG-SCAN 03/16/2020 12:00 AM CDT ECG-SCAN 03/16/2020 12:00 AM CDT ECG-SCAN 03/16/2020 12:00 AM CDT ECG-SCAN 03/16/2020 12:00 AM CDT ECG-SCAN 03/16/2020 12:00 AM CDT ECG-SCAN 03/16/2020 12:00 AM CDT ECG-SCAN 03/16/2020 12:00 AM CDT ECG-SCAN 03/16/2020 12:00 AM CDT ECG-SCAN 03/16/2020 12:00 AM CDT EXTERNAL COVID-19 Routine 03/15/2020 (SARS-COV-2) GENERAL RAD CHEST Routine 03/14/2020 EXTERNAL IMAGING 12:00 AM CDT GENERAL RAD CHEST Routine 03/13/2020 EXTERNAL IMAGING 12:15 AM CDT [facility] EXTERNAL IMAGING Routine 03/13/2020 12:10 AM CDT GENERAL RAD CHEST Routine 03/13/2020 EXTERNAL IMAGING 12:05 AM CDT GENERAL RAD CHEST Routine 03/13/2020 EXTERNAL IMAGING 12:00 AM CDT GENERAL RAD CHEST Routine 03/12/2020 EXTERNAL IMAGING 12:[address] ABD/PEL EXTERNAL Routine 03/11/2020 IMAGING 12:05 AM CDT GENERAL RAD CHEST Routine 03/11/2020 EXTERNAL IMAGING 12:00 AM CDT ECG-SCAN 03/01/2020 12:00 AM CDT HC MAGNESIUM [...] CDT from Last 3 Months Results * REGADENOSON MPI STRESS TEST (03/27/2020 2:17 PM CDT) Baseline HR 92 bpm OTHER OUTSIDE LAB Baseline BP - 125 mmHg OTHER OUTSIDE Sys LAB Peak HR 97 bpm OTHER OUTSIDE LAB Peak BP - Sys 147 mmHg OTHER OUTSIDE LAB PUL TO JEFF 0.36 OTHER OUTSIDE COUNT RATIO LAB Stress Dose 1.8 mCi OTHER OUTSIDE LAB Rest Dose 0.55 mCi OTHER OUTSIDE LAB CV NUCLEAR BMI 28.32 kg/m2 OTHER OUTSIDE LAB MPI EF 51 % OTHER OUTSIDE LAB TID Ratio 1.09 OTHER OUTSIDE LAB Summed Stress 3 OTHER OUTSIDE Score LAB Summed Rest 0 OTHER OUTSIDE Score LAB Baseline BP - 83 mmHg OTHER OUTSIDE Castro LAB Peak BP - Castro 80 OTHER OUTSIDE LAB LV volume 92 mL OTHER OUTSIDE LAB Study Number [id number] OTHER OUTSIDE LAB Nuclear In aggregate the current study OTHER OUTSIDE Cardiology is low risk in regards to LAB Mortality Risk predicted annual cardiovascular mortality rate. Specimen Narrative Performed At OTHER OUTSIDE LAB Nuclear Report [facility] Division of Nuclear Cardiac Imaging Consultation Report EXAMINATION: D-SPECT Gated [id number] 1 Chloride myocardial perfusion single-photon emission computed tomogra phy for viability, resting regional wall function, resting ejection fractio n, and perfusion imaging utilizing Regadenoson pharmacological stress. Date of Study: 03/27/20 Study #: [id number] CATRINA CATRINA Billing ID: [id number] Referring Physician: Requested by: Jaylene Cloud MD BMI: 28.32 kg/m2 INDICATIONS FOR STUDY (HISTORY): This is a 59 year old male with a history of acute encephalopathy/deliriu m, and acute respiratory failure with hypoxemia/hypercarbia, severe seps is, history of paroxysmal atrial fibrillation, type II non-ST segment el evation myocardial infarction, acute renal injury, essential hypertens ion, pulmonary embolism, and chronic lower back pain. This study i s being done to rule out significant myocardial ischemia. PROCEDURAL DETAILS: Initially, the pa tient received a 5 ml intravenous infusion of Regadenoson at 0.08 mg/ml o oziel 10 to 15 seconds. Approximately 20 seconds later 1.8 mCi of [id number] Chloride was injected intravenously. Throughout the infusion continuous electrocardiographic monitoring and serial electrocardiogram s were obtained, as well as intermittent blood pressure recordings. Gated upright D-SPECT tomographic images were then acquired approximately 5 minutes after discontinuation of the regadenoson infusion. When indicate d supine D-SPECT images were also obtained. The patient returned in approximately 4 hours and received an additional intravenous injection of 0.5 5 mCi of [id number] Chloride as a reinjected dose to assist in the detect ion of myocardial ischemia and viability. Images were then reacquire d and compared to post stress images. FINDINGS: Pharmacological Stress Electrocardiogra m: The patient's resting heart rate was 92 bpm and the resting blood p ressure was 125/83. The patient s peak stress heart rate was 97 bpm and t he peak stress blood pressure was 147/80. The patient experienced sever e and nausea. The resting ECG shows sinus rhythm. F ollowing Regadenoson infusion there are no new diagnostic ECG changes and t here is no significant ectopy. Conclusion: Pharmacologic stress ECG is negative for ischemia. Fnppphmkm-dg-Ygvxrlernq Count Ratio: 0.36 (normal = or < 0.52). Scintigraphic Findings: Raw images re veal the left ventricular cavity is normal in size. There is normal pulmo nary tracer uptake. There is no significant attenuation present. No t ransient ischemic dilation is present. Tomographic images were reconstructed i n three orthogonal views. There is normal homogenous uptake of thallium in all myocardial segments. There are no perfusion defects. All myocard ial segments appear viable. Polar coordinate map identifies no perf usion abnormalities. TID Ratio: 1.09 (normal <1.36). Summed Stress Score: 3 , Summed Re st Score: 0 Regional Wall Thickening and Motion Pos t Stress: There is normal left ventricular wall motion and thickening of all myocardial segments. Left Ventricular Ejection Fraction = 51 %. Left Ventricular End Diastolic Volume: 92 mL SUMMARY/OPINION: This study is probab ly normal with no evidence of significant myocardial ischemia. Left v entricular systolic function is normal. There are no high risk prognost ic indicators present. The pharmacologic ECG portion of the study is negative for ischemia. There are no prior studies available fo r comparison. In aggregate the current study is low r isk in regards to predicted annual cardiovascular mortality rate. Performing Organization Address [facility] Number OTHER OUTSIDE LAB * CBC AND DIFF (03/27/2020 4:48 AM CDT) Only the most recent of 22 results within the time period is included. White Blood 8.1 4.5 - 11.0 K/UL [facility] Cells RBC 3.94 (L) 4.4 - 5.5 M/UL [facility] Hemoglobin 11.2 (L) 13.5 - 16.5 GM/DL [facility] Hematocrit 32.4 (L) 40 - 50 % [facility] MCV 82.3 80 - 100 FL [facility] MCH 28.5 26 - 34 PG [facility] MCHC 34.6 32.0 - 36.0 G/DL [facility] RDW 14.7 11 - 15 % [facility] Platelet Count 533 (H) 150 - 400 K/UL [facility] MPV 8.2 7 - 11 FL [facility] Neutrophils 71 41 - 77 % [facility] Lymphocytes 10 (L) 24 - 44 % [facility] Monocytes 14 (H) 4 - 12 % [facility] Eosinophils 4 0 - 5 % [facility] Basophils 1 0 - 2 % [facility] Absolute 5.83 1.8 - 7.0 K/UL [facility] Neutrophil Count Absolute Lymph 0.77 (L) 1.0 - 4.8 K/UL [facility] Count Absolute 1.11 (H) 0 - 0.80 K/UL [facility] Monocyte Count Absolute 0.33 0 - 0.45 K/UL [facility] Eosinophil Count Absolute 0.09 0 - 0.20 K/UL [facility] Basophil Count Specimen Blood Performing Organization Address City/[facility] Ph one Number [facility] [address] [place] [address] * MAGNESIUM (03/27/2020 4:48 AM CDT) Only the most recent of 30 results within the time period is included. Magnesium 2.0 1.6 - 2.6 mg/dL [facility] Specimen Blood Performing Organization Address [facility] one Number [facility] [address] [place] [address] * COMPREHENSIVE METABOLIC PANEL (03/27/2020 4:48 AM CDT) Only the most recent of 20 results within the time period is included. Sodium 140 137 - 147 MMOL/L [facility] Potassium 3.6 3.5 - 5.1 MMOL/L [facility] Chloride 105 98 - 110 MMOL/L [facility] Glucose 96 70 - 100 MG/DL [facility] Blood Urea 18 7 - 25 MG/DL [facility] Nitrogen Creatinine 1.01 0.4 - 1.24 MG/DL [facility] Calcium 8.5 8.5 - 10.6 MG/DL [facility] Total Protein 5.7 (L) 6.0 - 8.0 G/DL [facility] Total Bilirubin 0.7 0.3 - 1.2 MG/DL [facility] Albumin 3.1 (L) 3.5 - 5.0 G/DL [facility] Alk Phosphatase 80 25 - 110 U/L [facility] AST (SGOT) 18 7 - 40 U/L [facility] CO2 26 21 - 30 MMOL/L [facility] ALT (SGPT) 25 7 - 56 U/L [facility] Anion Gap 9 3 - 12 [facility] eGFR Non >60 >60 mL/min [facility] Comment: [place] The eGFR is not validated f or use in drug dosing adjustments. Continue to use estimated creatinine clearance per dosing reference text. Please contact the Clinical Pharmacist for questions. eGFR >60 >60 mL/min [facility] [place] Comment: The eGFR is not validated for use in drug dosing adjustments. Continue to use estimated creatinine clearance per dosing reference text. Please contact the Clinical Pharmacist for questions. Specimen Blood Performing Organization Address City/[facility] one Number [facility] [address] [place] [address] * TROPONIN-I (03/26/2020 3:15 AM CDT) Only the most recent of 16 results within the time period is included. Troponin-I 0.10 (H) 0.0 - 0.05 NG/ML [facility] Specimen Blood Performing Organization Address [facility] one Number [facility] [address] [place] [address] * BASIC METABOLIC PANEL (03/22/2020 2:10 PM CDT) Only the most recent of 9 results within the time period is included. Sodium 142 137 - 147 MMOL/L [facility] Potassium 3.7 3.5 - 5.1 MMOL/L [facility] Chloride 108 98 - 110 MMOL/L [facility] CO2 27 21 - 30 MMOL/L [facility] Anion Gap 7 3 - 12 [facility] Glucose 91 70 - 100 MG/DL [facility] Blood Urea 40 (H) 7 - 25 MG/DL [facility] Nitrogen Creatinine 1.11 0.4 - 1.24 MG/DL [facility] Calcium 8.0 (L) 8.5 - 10.6 MG/DL [facility] eGFR Non >60 >60 mL/min [facility] Comment: [place] The eGFR is not validated f or use in drug dosing adjustments. Continue to use estimated creatinine clearance per dosing reference text. Please contact the Clinical Pharmacist for questions. eGFR >60 >60 mL/min [facility] [place] Comment: The eGFR is not validated for use in drug dosing adjustments. Continue to use estimated creatinine clearance per dosing reference text. Please contact the Clinical Pharmacist for questions. Specimen Blood Performing Organization Address [facility] one Number [facility] [address] [place] [address] * CHEST SINGLE VIEW (03/21/2020 5:40 PM CDT) Only the most recent of 4 results within the time period is included. Specimen Impressions Performed At Persistent small pleural effusions with slight decrease in bibasilar opacities. [facility] RESULTS By my electronic signature, I attest th at I have personally reviewed the images for this examination and formulated the interpretations and opinions expressed in this report Finalized by JACQUI OBREGON M.D. on 2019 7:44 AM. Dictated by Patrick Ward MD on 03/22/2020 7:17 AM. Narrative Performed At CHEST SINGLE VIEW [facility] RESULTS Clinical Indication: Increasing oxygen requirements. Comparison: Chest radiograph from 020. CT chest/abdomen/pelvis from 03/16/2020. Findings: Interval removal of endotracheal and ga stric tubes. Surgical clips overlie the left upper quadrant of the abdomen. Stable cardiomediastinal configuration. Slight decrease in bibasilar pulmonary opacities and small pleural effusions. No pneumothorax. Procedure Note Interface, Radiant Results - 03/22/2020 7:47 AM CDT CHEST SINGLE VIEW Clinical Indication: Increasing oxygen requirements. Comparison: Chest radiograph from 03/20/2020. CT chest/abdomen/pelvis from 03/16/2020. Findings: Interval removal of endotracheal and gastric tubes. Surgical clips overlie the left upper quadrant of the abdomen. Stable cardiomediastinal configuration. Slight decrease in bibasilar pulmonary opacities and small pleural effusions. No pneumothorax. IMPRESSION Persistent small pleural effusions with slight decrease in bibasilar opacities. By my electronic signature, I attest that I have personally reviewed the images for this examination and formulated the interpretations and opinions expressed in this report Finalized by JACQUI OBREGON M.D. on 03/22/2020 7:44 AM. Dictated by Patrick Ward MD on 03/22/2020 7:17 AM. Performing Organization Address [facility] [facility] Ph one Number KU RAD RESULTS * PROTEIN/CR RATIO,UR RAN (03/21/2020 1:55 PM CDT) Protein, Random 5 MG/DL K[facility] MAIN LAB Creatinine, 9 MG/DL [facility] MAIN LAB Random Protein/CR 0.6 [facility] MAIN [facility] ratio Specimen Urine - Urine Performing Organization Address [facility] Ph one Number [facility]U MAIN LAB [address] [place] [address] * BLOOD GASES, ARTERIAL (03/20/2020 8:36 AM CDT) Only the most recent of 5 results within the time period is included. pH-Arterial 7.41 7.35 - 7.45 [facility] MAIN LAB pCO2-Arterial 47 (H) 35 - 45 MMHG [facility] MAIN LAB pO2-Arterial 90 80 - 100 MMHG [facility] MAIN LAB Base 4.1 MMOL/L [facility] MAIN LAB Excess-Arterial O2 Sat-Arterial 96.8 95 - 99 % [facility] MAIN LAB Bicarbonate-ART 28.1 (H) 21 - 28 MMOL/L [facility] MAIN LAB -Hema Specimen Blood, arterial - Blood Performing Organization Address [facility] one Number MAIN LAB [address] [place] [address] * TRIGLYCERIDE (03/19/2020 3:58 AM CDT) Only the most recent of 2 results within the time period is included. Triglycerides 120 <150 MG/DL MAIN LAB Specimen Blood Performing Organization Address [facility] one Number MAIN LAB [address] [place] [address] * THYROID STIMULATING HORMONE-TSH (03/19/2020 3:58 AM CDT) TSH 7.65 (H) 0.35 - 5.00 MCU/ML MAIN LAB Specimen Blood Performing Organization Address [facility] one Number MAIN LAB [address] [place] [address] * CBC (03/18/2020 12:10 PM CDT) White Blood 16.5 (H) 4.5 - 11.0 K/UL MAIN LAB Cells RBC 4.49 4.4 - 5.5 M/UL MAIN LAB Hemoglobin 12.4 (L) 13.5 - 16.5 GM/DL [facility] MAIN LAB Hematocrit 37.2 (L) 40 - 50 % [facility] MAIN LAB MCV 82.9 80 - 100 FL [facility] MAIN LAB MCH 27.6 26 - 34 PG MAIN LAB MCHC 33.3 32.0 - 36.0 G/DL MAIN LAB RDW 15.4 (H) 11 - 15 % [facility] MAIN LAB Platelet Count 346 150 - 400 K/UL [facility] MAIN LAB MPV 8.6 7 - 11 FL MAIN LAB Specimen Blood Performing Organization Address [facility] one Number MAIN LAB [address] [place] [address] * IONIZED CALCIUM,BG (03/18/2020 9:45 AM CDT) Ionized Calcium 1.20 1.0 - 1.3 MMOL/L [facility] MAIN LAB Specimen Blood Performing Organization Address [facility] one Number MAIN LAB [address] [place] [address] * PHOSPHORUS (03/18/2020 9:45 AM CDT) Only the most recent of 4 results within the time period is included. Phosphorus 4.0 2.0 - 4.5 MG/DL MAIN LAB Specimen Blood Performing Organization Address [facility] one Number MAIN LAB [address] [place] [address] * 2D + DOPPLER ECHO (03/18/2020 7:27 AM CDT) Only the most recent of 2 results within the time period is included. IVS 1.14 0.6 - 1.0 cm OTHER OUTSIDE LAB LVIDD 4.77 4.2 - 5.8 cm OTHER OUTSIDE LAB LVIDS 3.69 2.5 - 4.0 cm OTHER OUTSIDE LAB PW 1.03 0.6 - 1.0 cm OTHER OUTSIDE LAB TDI lateral e' 0.12 m/s OTHER OUTSIDE LAB LA size 3.74 3.0 - 4.0 cm OTHER OUTSIDE LAB LA volume 45.34 18 - 58 mL OTHER OUTSIDE LAB Right Atrial 12.91 <18 cm2 OTHER OUTSIDE Area LAB Right Atrial 4.88 2.1 - 2.7 cm OTHER OUTSIDE Major Dimension LAB AV peak 1.30 m/s OTHER OUTSIDE velocity LAB MV Peak A Lalo 0.53 m/s OTHER OUTSIDE LAB MV Peak E Lalo 0.80 m/s OTHER OUTSIDE PW LAB Right Heart 1.15 >1.7 cm OTHER OUTSIDE Systolic Mmode LAB TAPSE Right Heart 0.15 m/s OTHER OUTSIDE Systolic TDI S' LAB Ao root annulus 2.11 2.0 - 3.2 cm OTHER OUTSIDE LAB Sinus 4.13 2.8 - 4.0 cm OTHER OUTSIDE LAB STJ 3.69 2.3 - 3.5 cm OTHER OUTSIDE LAB Ascending aorta 3.67 cm OTHER OUTSIDE LAB BSA 2.54 m2 OTHER OUTSIDE LAB FS 22.64 28 - 44 % OTHER OUTSIDE LAB EF 38.49 % OTHER OUTSIDE LAB LV mass 188.40 88 - 224 g OTHER OUTSIDE LAB RWT 0.43 <=0.42 OTHER OUTSIDE LAB E/A ratio 1.51 OTHER OUTSIDE LAB Lateral E/E' 6.67 OTHER OUTSIDE ratio LAB Left Atrium 17.85 16 - 34 OTHER OUTSIDE Index LAB Left Ventricle 74.17 49 - 115 g/m2 OTHER OUTSIDE Mass Index LAB Cardiology Siemens [id number] OTHER OUTSIDE Ultrasound LAB Machine Referring [employer] OTHER OUTSIDE Provider LAB CV ECHO PV Floor RN OTHER OUTSIDE PLASTIC SHAPER LAB ECHO EF 60 % OTHER OUTSIDE LAB Specimen Narrative Performed At OTHER OUTSIDE LAB 1. No regional wall motion abnormalitie s are seen. Overall LV systolic function appears normal. The estimated left ventricular ejection fraction is 60%. Left ventricular contractility appears similar when compared with the prior echocardiogram performed on . 2. Normal left ventricular diastolic fu nction. 3. The right ventricle is not visualize d well. Limited views suggest normal right ventricular size and contr actility. 4. Normal chamber dimensions. 5. The mitral and tricuspid cardiac chanelle ves appear structurally normal. The aortic and pulmonic valves are not visu alized well. There is no evidence of significant valvular regurgitation o r stenosis by doppler exam. 6. The aortic root is mildly dilated an d measures approximately 4.1 cm in diameter at the Sinus of Valsalva. Di stal to the Sinotubular junction, the proximal ascending aorta measures a pproximately 3.7 cm in diameter. 7. No pericardial effusion is seen. Performing Organization Address [facility] Ph one Number OTHER OUTSIDE LAB * BNP (B-TYPE NATRIURETIC PEPTI) (03/18/2020 1:38 AM CDT) Only the most recent of 4 results within the time period is included. Captual B Type 548.0 (H) 0 - 100 PG/ML MAIN LAB Natriuretic Peptide Specimen Blood Performing Organization Address [facility] one Number MAIN LAB [address] [place] [address] * CULTURE-BLOOD W/SENSITIVITY (03/17/2020 10:00 PM CDT) Only the most recent of 4 results within the time period is included. Battery Name BLOOD CULTURE [facility] MAIN LAB Specimen BLOOD MAIN LAB Description LEFT RADIAL Special NONE [facility] MAIN LAB Requests Culture NO GROWTH 5 DAYS [facility] MAIN LAB Report Status FINAL [facility] MAIN LAB 03/24/2020 Specimen Blood Performing Organization Address [facility] one Number MAIN LAB [address] [place] [address] * PROCALCITONIN (03/17/2020 2:50 AM CDT) Procalcitonin 0.44 (H) <0.11 ng/mL [facility] MAIN LAB Specimen Performing Organization Address [facility] one Number MAIN LAB [address] [place] [address] * CT ABD/PELV WO CONTRAST (03/16/2020 9:43 PM CDT) Specimen Impressions Performed At CHEST: [facility] RAD RESULTS 1. Large bilateral pleural effusions with adjacent complete consolidation of the bilateral lower lobes and adjacent dependent portions of the upper lobes. 2. Large dominant hypoattenuating rig ht thyroid nodule which is incompletely evaluated by CT. If clinically indicate d a nonemergent ultrasound of the thyroid could be obtained for further evaluatio n. 3. Moderate body wall edema. ABDOMEN AND PELVIS: 1. Moderate abdominopelvic ascites an d body wall edema, findings suggestive of fluid overload. 2. Persistent findings of nonspecific mesenteric panniculitis. 3. Moderate to severe left colonic di verticulosis coli. By my electronic signature, I attest th at I have personally reviewed the images for this examination and formulated the interpretations and opinions expressed in this report Finalized by Stephen Huerta MD, PhD on 03/16/2020 10:24 PM. Dictated by Sherman Gibbs MD on 03/16/2020 9:43 PM. Narrative Performed At CT CHEST, ABDOMEN AND PELVIS [facility] RAD RESULTS Clinical Indication: 59-year-old male w ith pneumonia and abdominal pain. Technique: Multiple contiguous axial im ages were obtained through the chest, abdomen and pelvis without IV contrast material. Post processing coronal and sagittal reconstruction images were mad e from the axial images. IV contrast: None. Bowel contrast: Yes Comparison: External CT abdomen pelvis March 11, 2020. CT chest abdomen pelvis June 08, 2019. CHEST FINDINGS: Evaluation of the mediastinum and edis, including the vasculature and for lymphadenopathy, is limited without the use of IV contrast. Lower Neck: Large dominant right thyroi d lobe hypodense nodule measuring 3.3 x 1.8 cm (series 3 image 6). A few smalle r hypoattenuating thyroid nodules are identified. Axilla, Mediastinum and Edis: No axilla ry, hilar, or mediastinal lymphadenopathy. Heart and Great Vessels: Right IJ centr al venous catheter is in place. Heart size is normal. No significant pericard ial effusion. Mild calcific coronary disease. Airway, Lungs and Pleura: An endotrache al tube is in place with the distal tip well above the hilario. Large bilateral pleural effusions with complete atelectasis of the bilateral lower lobe portion of the upper lobes and right middle lobe. Chest Wall and Osseous Structures: Mode rate chest wall edema. No destructive osseous lesion. Abdomen and Pelvis Findings: Limited evaluation without the use of I V contrast which includes the viscera and vasculature. Liver and Biliary system: Liver is norm al in size without obvious hepatic lesion. Gallbladder is present and at t he upper limits of normal for size. No biliary ductal dilation. 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 Adrenal Glands and Kidneys: Adrenal gla nds are unremarkable. Punctate nonobstructing left renal calculi. No h ydronephrosis. Pancreas and Retroperitoneum: Marked fa tty pancreatic atrophy. No retroperitoneal lymphadenopathy. Aorta and Major Vessels: Mild calcific aortoiliac atherosclerosis. Bowel, Mesentery and Peritoneal space: Gastric tube has its tip in the gastric body. There is groundglass opacificatio n the central mesentery/zoe mesentery similar prior study. The small bowel is opacified with oral contrast material. Prior distal colonic resection and rean astomosis. Mild edema fluid are noted tracking right prerenal fascia and varsha cent to the second portion of duodenum. The small and large bowel loops are nor mal in caliber. Moderate abdominopelvic ascites. No pneumoperitoneum or extrava sation of oral contrast material to suggest an active bowel leak. Moderate to severe left colonic diverticulosis coli present. Pelvis: Urinary bladder is mildly diste nded with a Sarmiento catheter in place and a small amount of intraluminal gas, likel y from instrumentation. The prostate is mildly enlarged with dystrophic calcifi cations. No pelvic lymphadenopathy. Abdominal wall and Osseous Structures: Moderate body wall edema. No destructive osseous lesion. Procedure Note Interface, Radiant Results - 03/16/2020 10:[address] CHEST, ABDOMEN AND PELVIS Clinical Indication: 59-year-old male with pneumonia and abdominal pain. Technique: Multiple contiguous axial images were obtained through the chest, abdomen and pelvis without IV contrast material. Post processing coronal and sagittal reconstruction images were made from the axial images. IV contrast: None. Bowel contrast: Yes Comparison: External CT abdomen pelvis March 11, 2020. CT chest abdomen pelvis June 08, 2019. CHEST FINDINGS: Evaluation of the mediastinum and edis, including the vasculature and for lymphadenopathy, is limited without the use of IV contrast. Lower Neck: Large dominant right thyroid lobe hypodense nodule measuring 3.3 x 1.8 cm (series 3 image 6). A few smaller hypoattenuating thyroid nodules are identified. Axilla, Mediastinum and Edis: No axillary, hilar, or mediastinal lymphadenopathy. Heart and Great Vessels: Right IJ central venous catheter is in place. Heart size is normal. No significant pericardial effusion. Mild calcific coronary disease. Airway, Lungs and Pleura: An endotracheal tube is in place with the distal tip well above the hilario. Large bilateral pleural effusions with complete atelectasis of the bilateral lower lobe portion of the upper lobes and right middle lobe. Chest Wall and Osseous Structures: Moderate chest wall edema. No destructive osseous lesion. Abdomen and Pelvis Findings: Limited evaluation without the use of IV contrast which includes the viscera and vasculature. Liver and Biliary system: Liver is normal in size without obvious hepatic lesion. Gallbladder is present and at the upper limits of normal for size. No biliary ductal dilation. Spleen: Prior splenectomy with a few small residual splenules. Adrenal Glands and Kidneys: Adrenal glands are unremarkable. Punctate nonobstructing left renal calculi. No hydronephrosis. Pancreas and Retroperitoneum: Marked fatty pancreatic atrophy. No retroperitoneal lymphadenopathy. Aorta and Major Vessels: Mild calcific aortoiliac atherosclerosis. Bowel, Mesentery and Peritoneal space: Gastric tube has its tip in the gastric body. There is groundglass opacification the central mesentery/zoe mesentery similar prior study. The small bowel is opacified with oral contrast material. Prior distal colonic resection and reanastomosis. Mild edema fluid are noted tracking right prerenal fascia and adjacent to the second portion of duodenum. The small and large bowel loops are normal in caliber. Moderate abdominopelvic ascites. No pneumoperitoneum or extravasation of oral contrast material to suggest an active bowel leak. Moderate to severe left colonic diverticulosis coli present. Pelvis: Urinary bladder is mildly distended with a Sarmiento catheter in place and a small amount of intraluminal gas, likely from instrumentation. The prostate is mildly enlarged with dystrophic calcifications. No pelvic lymphadenopathy. Abdominal wall and Osseous Structures: Moderate body wall edema. No destructive osseous lesion. IMPRESSION CHEST: 1. Large bilateral pleural effusions wi th adjacent complete consolidation of the bilateral lower lobes and adjacent dependent portions of the upper lobes. 2. Large dominant hypoattenuating right thyroid nodule which is incompletely evaluated by CT. If clinically indicated a nonemergent ultrasound of the thyroid could be obtained for further evaluation. 3. Moderate body wall edema. ABDOMEN AND PELVIS: 1. Moderate abdominopelvic ascites and body wall edema, findings suggestive of fluid overload. 2. Persistent findings of nonspecific m esenteric panniculitis. 3. Moderate to severe left colonic dive rticulosis coli. By my electronic signature, I attest that I have personally reviewed the images for this examination and formulated the interpretations and opinions expressed in this report Finalized by Stephen Huerta MD, PhD on 03/16/2020 10:24 PM. Dictated by Sherman Gibbs MD on 03/16/2020 9:43 PM. Performing Organization Address City/State/Zipcode Ph one Number KU RAD RESULTS * CT CHEST WO CONTRAST (03/16/2020 9:43 PM CDT) Specimen Impressions Performed At CHEST: [facility] RAD RESULTS 1. Large bilateral pleural effusions with adjacent complete consolidation of the bilateral lower lobes and adjacent dependent portions of the upper lobes. 2. Large dominant hypoattenuating rig ht thyroid nodule which is incompletely evaluated by CT. If clinically indicate d a nonemergent ultrasound of the thyroid could be obtained for further evaluatio n. 3. Moderate body wall edema. ABDOMEN AND PELVIS: 1. Moderate abdominopelvic ascites an d body wall edema, findings suggestive of fluid overload. 2. Persistent findings of nonspecific mesenteric panniculitis. 3. Moderate to severe left colonic di verticulosis coli. By my electronic signature, I attest th at I have personally reviewed the images for this examination and formulated the interpretations and opinions expressed in this report Finalized by Stephen Huerta MD, PhD on 03/16/2020 10:24 PM. Dictated by Sherman Gibbs MD on 03/16/2020 9:43 PM. Narrative Performed At CT CHEST, ABDOMEN AND PELVIS [facility] RAD RESULTS Clinical Indication: 59-year-old male w ith pneumonia and abdominal pain. Technique: Multiple contiguous axial im ages were obtained through the chest, abdomen and pelvis without IV contrast material. Post processing coronal and sagittal reconstruction images were mad e from the axial images. IV contrast: None. Bowel contrast: Yes Comparison: External CT abdomen pelvis March 11, 2020. CT chest abdomen pelvis June 08, 2019. CHEST FINDINGS: Evaluation of the mediastinum and edis, including the vasculature and for lymphadenopathy, is limited without the use of IV contrast. Lower Neck: Large dominant right thyroi d lobe hypodense nodule measuring 3.3 x 1.8 cm (series 3 image 6). A few smalle r hypoattenuating thyroid nodules are identified. Axilla, Mediastinum and Edis: No axilla ry, hilar, or mediastinal lymphadenopathy. Heart and Great Vessels: Right IJ centr al venous catheter is in place. Heart size is normal. No significant pericard ial effusion. Mild calcific coronary disease. Airway, Lungs and Pleura: An endotrache al tube is in place with the distal tip well above the hilario. Large bilateral pleural effusions with complete atelectasis of the bilateral lower lobe portion of the upper lobes and right middle lobe. Chest Wall and Osseous Structures: Mode rate chest wall edema. No destructive osseous lesion. Abdomen and Pelvis Findings: Limited evaluation without the use of I V contrast which includes the viscera and vasculature. Liver and Biliary system: Liver is norm al in size without obvious hepatic lesion. Gallbladder is present and at t he upper limits of normal for size. No biliary ductal dilation. 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 Adrenal Glands and Kidneys: Adrenal gla nds are unremarkable. Punctate nonobstructing left renal calculi. No h ydronephrosis. Pancreas and Retroperitoneum: Marked fa tty pancreatic atrophy. No retroperitoneal lymphadenopathy. Aorta and Major Vessels: Mild calcific aortoiliac atherosclerosis. Bowel, Mesentery and Peritoneal space: Gastric tube has its tip in the gastric body. There is groundglass opacificatio n the central mesentery/zoe mesentery similar prior study. The small bowel is opacified with oral contrast material. Prior distal colonic resection and rean astomosis. Mild edema fluid are noted tracking right prerenal fascia and varsha cent to the second portion of duodenum. The small and large bowel loops are nor mal in caliber. Moderate abdominopelvic ascites. No pneumoperitoneum or extrava sation of oral contrast material to suggest an active bowel leak. Moderate to severe left colonic diverticulosis coli present. Pelvis: Urinary bladder is mildly diste nded with a Sarmiento catheter in place and a small amount of intraluminal gas, likel y from instrumentation. The prostate is mildly enlarged with dystrophic calcifi cations. No pelvic lymphadenopathy. Abdominal wall and Osseous Structures: Moderate body wall edema. No destructive osseous lesion. Procedure Note Interface, Radiant Results - 03/16/2020 10:[address] CHEST, ABDOMEN AND PELVIS Clinical Indication: 59-year-old male with pneumonia and abdominal pain. Technique: Multiple contiguous axial images were obtained through the chest, abdomen and pelvis without IV contrast material. Post processing coronal and sagittal reconstruction images were made from the axial images. IV contrast: None. Bowel contrast: Yes Comparison: External CT abdomen pelvis March 11, 2020. CT chest abdomen pelvis June 08, 2019. CHEST FINDINGS: Evaluation of the mediastinum and edis, including the vasculature and for lymphadenopathy, is limited without the use of IV contrast. Lower Neck: Large dominant right thyroid lobe hypodense nodule measuring 3.3 x 1.8 cm (series 3 image 6). A few smaller hypoattenuating thyroid nodules are identified. Axilla, Mediastinum and Edis: No axillary, hilar, or mediastinal lymphadenopathy. Heart and Great Vessels: Right IJ central venous catheter is in place. Heart size is normal. No significant pericardial effusion. Mild calcific coronary disease. Airway, Lungs and Pleura: An endotracheal tube is in place with the distal tip well above the hilario. Large bilateral pleural effusions with complete atelectasis of the bilateral lower lobe portion of the upper lobes and right middle lobe. Chest Wall and Osseous Structures: Moderate chest wall edema. No destructive osseous lesion. Abdomen and Pelvis Findings: Limited evaluation without the use of IV contrast which includes the viscera and vasculature. Liver and Biliary system: Liver is normal in size without obvious hepatic lesion. Gallbladder is present and at the upper limits of normal for size. No biliary ductal dilation. Spleen: Prior splenectomy with a few small residual splenules. Adrenal Glands and Kidneys: Adrenal glands are unremarkable. Punctate nonobstructing left renal calculi. No hydronephrosis. Pancreas and Retroperitoneum: Marked fatty pancreatic atrophy. No retroperitoneal lymphadenopathy. Aorta and Major Vessels: Mild calcific aortoiliac atherosclerosis. Bowel, Mesentery and Peritoneal space: Gastric tube has its tip in the gastric body. There is groundglass opacification the central mesentery/zoe mesentery similar prior study. The small bowel is opacified with oral contrast material. Prior distal colonic resection and reanastomosis. Mild edema fluid are noted tracking right prerenal fascia and adjacent to the second portion of duodenum. The small and large bowel loops are normal in caliber. Moderate abdominopelvic ascites. No pneumoperitoneum or extravasation of oral contrast material to suggest an active bowel leak. Moderate to severe left colonic diverticulosis coli present. Pelvis: Urinary bladder is mildly distended with a Sarmiento catheter in place and a small amount of intraluminal gas, likely from instrumentation. The prostate is mildly enlarged with dystrophic calcifications. No pelvic lymphadenopathy. Abdominal wall and Osseous Structures: Moderate body wall edema. No destructive osseous lesion. IMPRESSION CHEST: 1. Large bilateral pleural effusions wi th adjacent complete consolidation of the bilateral lower lobes and adjacent dependent portions of the upper lobes. 2. Large dominant hypoattenuating right thyroid nodule which is incompletely evaluated by CT. If clinically indicated a nonemergent ultrasound of the thyroid could be obtained for further evaluation. 3. Moderate body wall edema. ABDOMEN AND PELVIS: 1. Moderate abdominopelvic ascites and body wall edema, findings suggestive of fluid overload. 2. Persistent findings of nonspecific m esenteric panniculitis. 3. Moderate to severe left colonic dive rticulosis coli. By my electronic signature, I attest that I have personally reviewed the images for this examination and formulated the interpretations and opinions expressed in this report Finalized by Stephen Huerta MD, PhD on 03/16/2020 10:24 PM. Dictated by Sherman Gibbs MD on 03/16/2020 9:43 PM. Performing Organization Address City/State/Zipcode Ph one Number KU RAD RESULTS * LACTIC ACID (BG - RAPID LACTATE) (03/16/2020 8:07 PM CDT) Lactic Acid,BG 1.7 0.5 - 2.0 MMOL/L [facility] MAIN LAB Specimen Blood Performing Organization Address [facility] Ph one Number MAIN LAB [address] [place] [address] * VANCOMYCIN TIMED LEVEL (03/16/2020 8:07 PM CDT) Vancomycin 14.1 MCG/ML MAIN LAB Random Specimen Blood Performing Organization Address [facility] Ph one Number MAIN LAB [address] [place] [address] * URINALYSIS, MICROSCOPIC (03/16/2020 5:30 PM CDT) WBCs,UA 20-50 0 - 2 /HPF MAIN LAB RBCs,UA PACKED 0 - 3 /HPF MAIN LAB Specimen Urine - Urine Performing Organization Address [facility] one Number MAIN LAB [address] [place] [address] * URINALYSIS DIPSTICK (03/16/2020 5:30 PM CDT) Color,UA YELLOW [facility]U MAIN LAB Turbidity,UA CLEAR CLEAR-CLEAR MAIN LAB Specific 1.029 1.003 - 1.035 MAIN LAB [place]-Urine pH,UA 6.0 5.0 - 8.0 K[facility] MAIN LAB Protein,UA 2+ (A) NEG-NEG MAIN LAB Glucose,UA NEG NEG-NEG MAIN LAB Ketones,UA NEG NEG-NEG MAIN LAB Bilirubin,UA NEG NEG-NEG MAIN LAB Blood,UA 3+ (A) NEG-NEG MAIN LAB Urobilinogen,UA NORMAL NORM-NORMAL [facility] MAIN LAB Nitrite,UA NEG NEG-NEG MAIN LAB Leukocytes,UA TRACE (A) NEG-NEG MAIN LAB Urine Ascorbic NEG NEG-NEG MAIN LAB Acid, UA Specimen Urine - Urine Performing Organization Address [facility] one Number MAIN LAB [address] [place] [address] * PTT (APTT) (03/16/2020 5:26 PM CDT) Only the most recent of 3 results within the time period is included. APTT 20.7 (L) 24.0 - 36.5 SEC MAIN LAB Specimen Blood Performing Organization Address [facility] Ph one Number MAIN LAB [address] [place] [address] * PROTIME INR (PT) (03/16/2020 5:26 PM CDT) Only the most recent of 7 results within the time period is included. INR 1.3 (H) 0.8 - 1.2 MAIN LAB Specimen Blood Performing Organization Address [facility] Ph one Number MAIN LAB [address] [place] [address] * LIPASE (03/16/2020 5:26 PM CDT) Lipase 4 (L) 11 - 82 U/L MAIN LAB Specimen Blood Performing Organization Address [facility] Ph one Number MAIN LAB [address] [place] [address] * GRAM STAIN (03/16/2020 4:55 PM CDT) Battery Name GRAM STAIN [facility] MAIN LAB Specimen TRACHEAL ASPIRATE MAIN LAB Description Special NONE [facility] MAIN LAB Requests Gram Stain LESS THAN 10/LPF MAIN LAB NEUTROPHILS LESS THAN 10/LPF SQUAMOUS EPITHELIAL CELLS NO ORGANISMS SEEN Report Status FINAL MAIN LAB 03/16/2020 Specimen Tracheal Aspirate Performing Organization Address [facility] one Number MAIN LAB [address] [place] [address] * CULTURE-RESP,LOWER W/SENSITIVITY (03/16/2020 4:55 PM CDT) Battery Name LOWER RESP CULTURE [facility] MAIN LAB Specimen TRACHEAL ASPIRATE MAIN LAB Description Special NONE [facility] MAIN LAB Requests Direct Gram LESS THAN 10/LPF [facility] MAIN LAB Stain NEUTROPHILS LESS THAN 10/LPF SQUAMOUS EPITHELIAL CELLS NO ORGANISMS SEEN Culture Light growth MAIN LAB NO SIGNIFICANT OLIVER Report Status FINAL MAIN LAB 03/18/2020 Specimen Tracheal Aspirate Performing Organization Address [facility] one Number MAIN LAB [address] [place] [address] * GENERAL RAD CHEST EXTERNAL IMAGING (03/16/2020 10:53 AM CDT) Only the most recent of 9 results within the time period is included. Specimen Narrative Performed At This order has been auto finalized and does not contain a result. * ECG-SCAN (03/16/2020 12:00 AM CDT) Narrative Performed At This result has an attachment that is n ot available. Ordered by an unspecified provider. * ECG-SCAN (03/16/2020 12:00 AM CDT) Narrative Performed At This result has an attachment that is n ot available. Ordered by an unspecified provider. * ECG-SCAN (03/16/2020 12:00 AM CDT) Narrative Performed At This result has an attachment that is n ot available. Ordered by an unspecified provider. * ECG-SCAN (03/16/2020 12:00 AM CDT) Narrative Performed At This result has an attachment that is n ot available. Ordered by an unspecified provider. * ECG-SCAN (03/16/2020 12:00 AM CDT) Narrative Performed At This result has an attachment that is n ot available. Ordered by an unspecified provider. * ECG-SCAN (03/16/2020 12:00 AM CDT) Narrative Performed At This result has an attachment that is n ot available. Ordered by an unspecified provider. * ECG-SCAN (03/16/2020 12:00 AM CDT) Narrative Performed At This result has an attachment that is n ot available. Ordered by an unspecified provider. * ECG-SCAN (03/16/2020 12:00 AM CDT) Narrative Performed At This result has an attachment that is n ot available. Ordered by an unspecified provider. * ECG-SCAN (03/16/2020 12:00 AM CDT) Narrative Performed At This result has an attachment that is n ot available. Ordered by an unspecified provider. * ECG-SCAN (03/16/2020 12:00 AM CDT) Narrative Performed At This result has an attachment that is n ot available. Ordered by an unspecified provider. * ECG-SCAN (03/16/2020 12:00 AM CDT) Narrative Performed At This result has an attachment that is n ot available. Ordered by an unspecified provider. * ECG-SCAN (03/16/2020 12:00 AM CDT) Narrative Performed At This result has an attachment that is n ot available. Ordered by an unspecified provider. * ECG-SCAN (03/16/2020 12:00 AM CDT) Narrative Performed At This result has an attachment that is n ot available. Ordered by an unspecified provider. * EXTERNAL COVID-19 (SARS-COV-2) (03/15/2020) Overall OTHER OUTSIDE COVID-19 LAB (SARS-CoV-2) Result Source COVID-19 STILL PUMP OPERATOR Swab OTHER OUTSIDE (SARS-CoV-2) LAB COVID-19 NegativeComment: Via Sosa MA OU RICHY (SARS-CoV-2) [place] LAB RNA Kay-SARS RNA OTHER OUTSIDE LAB Specimen Nasopharyngeal Swab - Nasopharyngeal Swab Narrative Performed At This result has an attachment that is n ot available. Performing Organization Address [facility] one Number OTHER OUTSIDE LAB * US MISC EXTERNAL IMAGING (03/13/2020 12:10 AM CDT) Specimen Narrative Performed At This order has been auto finalized and does not contain a result. * CT ABD/PEL EXTERNAL IMAGING (03/11/2020 12:05 AM CDT) Specimen Narrative Performed At This order has been auto finalized and does not contain a result. * ECG-SCAN (03/01/2020 12:00 AM CDT) Narrative Performed At This result has an attachment that is n ot available. Ordered by an unspecified provider. * PHENCYCLIDINES-URINE RANDOM (02/21/2020 3:00 AM CDT) Phencyclidine NEG NEG-NEG MAIN LAB (PCP) Comment: RESULTS WERE OBTAINED BY IMMUNOASSAY AND ARE PRESUMPTIVE ONLY. POSITIVE INDICATES THE PRESENCE OF SUBSTANCE WITH CHARACTERISTICS SIMILAR TO DRUG-DRUG CLASS OR METABOLITE IN CONC. EQUAL TO OR EXCEEDING VALUES LISTED. PHENCYCLIDINE (PCP) 25 NG/ML Specimen Urine - Urine Narrative Performed At This result has an attachment that is n ot available. Performing Organization Address [facility] one Number MAIN LAB [address] [place] [address] * OPIATES-URINE RANDOM (02/21/2020 3:00 AM CDT) Opiates-Urine POS (A) NEG-NEG MAIN LAB Comment: RESULTS WERE OBTAINED BY IMMUNOASSAY AND ARE PRESUMPTIVE ONLY. POSITIVE INDICATES THE PRESENCE OF SUBSTANCE WITH CHARACTERISTICS SIMILAR TO DRUG-DRUG CLASS OR METABOLITE IN CONC. EQUAL TO OR EXCEEDING VALUES LISTED. OPIATES 2000 NG/ML Specimen Urine - Urine Performing Organization Address [facility] Ph one Number MAIN LAB [address] [place] [address] * COCAINE-URINE RANDOM (02/21/2020 3:00 AM CDT) Cocaine-Urine NEG NEG-NEG MAIN LAB Comment: RESULTS WERE OBTAINED BY IMMUNOASSAY AND ARE PRESUMPTIVE ONLY. POSITIVE INDICATES THE PRESENCE OF SUBSTANCE WITH CHARACTERISTICS SIMILAR TO DRUG-DRUG CLASS OR METABOLITE IN CONC. EQUAL TO OR EXCEEDING VALUES LISTED. COCAINE 300 NG/ML Specimen Urine - Urine Performing Organization Address [facility] Ph one Susanne PEREZ LAB [address] [place] [address] * CANNABINOIDS-URINE RANDOM (02/21/2020 3:00 AM CDT) THC NEG NEG-NEG MAIN LAB Comment: RESULTS WERE OBTAINED BY IMMUNOASSAY AND ARE PRESUMPTIVE ONLY. POSITIVE INDICATES THE PRESENCE OF SUBSTANCE WITH CHARACTERISTICS SIMILAR TO DRUG-DRUG CLASS OR METABOLITE IN CONC. EQUAL TO OR EXCEEDING VALUES LISTED. CANNABINOIDS 50 NG/ML Specimen Urine - Urine Performing Organization [facility] Ph one Susanne FRITZ [facility] LAB [address] [place] [address] * BENZODIAZEPINES-URINE RANDOM (02/21/2020 3:00 AM CDT) Benzodiazepines POS (A) NEG-NEG MAIN LAB Comment: RESULTS WERE OBTAINED BY IMMUNOASSAY AND ARE PRESUMPTIVE ONLY. POSITIVE INDICATES THE PRESENCE OF SUBSTANCE WITH CHARACTERISTICS SIMILAR TO DRUG-DRUG CLASS OR METABOLITE IN CONC. EQUAL TO OR EXCEEDING VALUES LISTED. BENZODIAZEPINES 200 NG/ML Specimen Urine - Urine Performing Organization Address [facility] Ph one Susanne FRITZ [facility] LAB [address] [place] [address] * BARBITURATES-URINE RANDOM (02/21/2020 3:00 AM CDT) Barbiturates,Ur NEG NEG-NEG MAIN LAB ine Comment: RESULTS WERE OBTAINED BY IMMUNOASSAY AND ARE PRESUMPTIVE ONLY. POSITIVE INDICATES THE PRESENCE OF SUBSTANCE WITH CHARACTERISTICS SIMILAR TO DRUG-DRUG CLASS OR METABOLITE IN CONC. EQUAL TO OR EXCEEDING VALUES LISTED. BARBITURATES 200 NG/ML Specimen Urine - Urine Performing Organization Address [facility] Ph one Susanne FRITZ [facility] [address] [place] [address] * AMPHETAMINES-URINE RANDOM (02/21/2020 3:00 AM CDT) Amphetamines NEG NEG-NEG MAIN LAB Comment: RESULTS WERE OBTAINED BY IMMUNOASSAY AND ARE PRESUMPTIVE ONLY. POSITIVE INDICATES THE PRESENCE OF SUBSTANCE WITH CHARACTERISTICS SIMILAR TO DRUG-DRUG CLASS OR METABOLITE IN CONC. EQUAL TO OR EXCEEDING VALUES LISTED. AMPHETAMINES 1000 NG/ML Specimen Urine - Urine Performing Organization [facility] one Number [facility] [address] [place] [address] * COVID-19 (SARS-COV-2) PCR (02/20/2020 11:33 PM CDT) Only the most recent of 2 results within the time period is included. COVID-19 NASOPHARYNGEAL SWAB [facility] [...] performance characteristics have been verified by the [facility]. Fact sheet for providers: https://www.fda.gov/media/7615 56/download Fact sheet for patients: https://www.fda.gov/media/6447 57/download Specimen Nasopharyngeal Swab Performing Organization [facility] one Number [facility] [address] [place] [address] * FREE T4-FREE THYROXINE (02/20/2020 11:33 PM CDT) T4-Free 1.2 0.6 - 1.6 NG/DL MAIN LAB Specimen Performing Organization [facility] one Number [facility] [address] [place] [address] * TSH WITH FREE T4 REFLEX (02/20/2020 11:33 PM CDT) Only the most recent of 3 results within the time period is included. TSH 10.27 (H) 0.35 - 5.00 MCU/ML [facility] LAB Specimen Blood Performing Organization [facility] Ph one Number [facility] MAIN LAB [address] [place] [address] * TELEMETRY STRIPS-SCAN (02/20/2020 12:00 AM CDT) Narrative Performed At This result has an attachment that is n ot available. Ordered by an unspecified provider. * HEMOGLOBIN A1C (02/02/2020 2:33 AM CDT) Only the most recent of 2 results within the time period is included. Hemoglobin A1C 5.6 4.0 - 6.0 % [facility] MAIN LAB Comment: The ADA recommends that most patients with type 1 and type 2 diabetes maintain an A1c level <7%. Specimen Blood Performing Organization Address [facility] one Number MAIN LAB [address] [place] [address] * LIPID PROFILE (02/02/2020 2:33 AM CDT) Only the most recent of 2 results within the time period is included. Cholesterol 128 <200 MG/DL [facility] MAIN LAB Triglycerides 82 <150 MG/DL [facility] MAIN LAB HDL 30 (L) >40 MG/DL [facility] MAIN LAB LDL 76 <100 mg/dL [facility] MAIN LAB VLDL 16 MG/DL [facility] MAIN LAB Non HDL 98 MG/DL [facility] MAIN LAB Cholesterol Comment: Calculated non-HDL Cholesterol (non-HDL-C) indirectly measures LDL-C, Lp(a), IDL-C, and VLDL-C. It is a surrogate marker for Apoprotein B. Goal should be less than 130 mg/dL. Specimen Performing Organization Address [facility] Ph one Number MAIN LAB [address] [place] [address] * TELEMETRY STRIPS-SCAN (02/02/2020 12:00 AM CDT) [...] * POC GLUCOSE (01/18/2020 8:45 PM CDT) Pathologist [facility] Glucose, POC 94 70 - 100 MG/DL MAIN LAB Specimen Performing Organization Address [facility] one Number MAIN LAB [address] [place] [address] * UA REFLEX CULTURE LABEL (01/18/2020 3:50 AM CDT) Pathologist [facility] UA Reflex Criteria for reflex to culture [facility] LAB Culture are WBC>10, Positive Nitrit e, and/or >=+1 leukocytes. If quantity is not sufficient, an addendum will follow. Specimen Urine Performing Organization Address [facility] one Number [facility] [address] [place] [address] * URINALYSIS MICROSCOPIC REFLEX TO CULTURE (01/18/2020 3:50 AM CDT) Pathologist [facility] WBCs,UA 0-2 0 - 2 /HPF MAIN LAB RBCs,UA 0-2 0 - 3 /HPF MAIN LAB Comment,UA Criteria for reflex to culture [facility] LAB are WBC>10, Positive Nitrite, and/or >=+1 leukocytes. If quantity is not sufficient, an addendum will follow. MucousUA 2+ [facility] Specimen Urine Performing Organization Address [facility] Ph one Number [facility] LAB [address] [place] [address] * URINALYSIS DIPSTICK REFLEX TO CULTURE (01/18/2020 3:50 AM CDT) Pathologist [facility] Color,UA YELLOW MAIN LAB Turbidity,UA CLEAR CLEAR-CLEAR MAIN LAB Specific 1.019 1.003 - 1.035 MAIN LAB [place]-Urine pH,UA 5.0 5.0 - 8.0 MAIN LAB Protein,UA NEG NEG-NEG MAIN LAB Glucose,UA NEG NEG-NEG [facility] MAIN LAB Ketones,UA NEG NEG-NEG [facility] MAIN LAB Bilirubin,UA NEG NEG-NEG [facility] MAIN LAB Blood,UA NEG NEG-NEG [facility] MAIN LAB Urobilinogen,UA NORMAL NORM-NORMAL [facility] MAIN LAB Nitrite,UA NEG NEG-NEG [facility] MAIN LAB Leukocytes,UA NEG NEG-NEG [facility] MAIN LAB Urine Ascorbic NEG NEG-NEG [facility] MAIN LAB Acid, UA Specimen Urine Performing Organization Address [facility] one Number [facility] MAIN LAB [address] [place] [address] * CHEST 2 VIEWS (01/17/2020 11:22 PM [...] on 01/18/2020 7:00 AM. Performing Organization Address [facility] one Number [facility] RAD RESULTS * TELEMETRY [...] Dates Group AETNA MEDICAID AETNA xxxxxxxxxxx 2019-P BETTER [facility] [place] [phone] Advance Directives Patient [place] Explanation Type Date Recorded Advance 05/30/2019 3:15 PM Directive/DPOA Date Inactivated Comments Code Status Date Activated 03/28/2020 5:04 PM Full Code 03/22/2020 3:00 PM Provider has discussed Code Status Yes w/Patient or Family? 03/22/2020 3:00 PM Full Code 03/16/2020 4:16 PM Provider has discussed Code Status No, more discussi on w/Patient or Family? needed 02/23/2020 1:53 PM Full Code 02/21/2020 1:07 [...]
--- OUTSIDE RECORDS SUMMARY | 2020-03-28 23:40 | XMS REPORT | Encounter Summary ---
Author Author [facility] Organization [facility] Address Unknown Phone Unavailable Care Team Providers Care Rehabilitation Services Director Name Role Phone Sherman Spicer MD Unavailable StaReyna hudson Unavailable Unavailable Indiana Bauer APRN PCP Unavailable Lenka Fuentes RN [phone] Unavailable Encounter Details Care Team Description Date Type Department 03/27/2020 Travel Social History Date Tobacco Use Types [...] month, have you been in contact with Mary ble to assess someone who was confirmed or suspected to have Coronavirus / COVID-19? documented as of this encounter Functional Status Date of Assessment Functional Status Response 03/25/2020 Does the patient have a hearing impairment: No documented as of this encounter Plan of Treatment Not on filedocumented as of this encounter Goals Goal Patient Associated Recent Progress Patient-Stat Aut hor Goal Type Problems ed? GOAL General No Tana Saldivar, RN Note: Get stronger Take Medication at Right Time, Medication No Lind, Right Day, Right Order, With Adherence Danilo Moseley N or Without Food Correctly documented as of this encounter Visit Diagnoses Not on filedocumented in this encounter
--- OUTSIDE RECORDS SUMMARY | 2020-03-28 23:40 | XMS REPORT | Encounter Summary ---
Author Author [facility] Organization [facility] Address Unknown Phone Unavailable Care Team Providers Care Tool Crib Supervisor Name Role Phone Sherman Spicer MD Unavailable Reyna Bond Unavailable Unavailable Indiana Bauer APRN PCP Unavailable Encounter Details Care Team Description Date Type Department 03/16/2020 Travel Social History Date Tobacco Use Types Packs/Day Years Used Quit: 1979 Former Smoker Cigarettes Smokeless Tobacco: Never Used Drinks/Week oz/Week Comments Alcohol Use No Sex Assigned at Date Recorded Not on file Industry Job Start Date Occupation Not on file Not on file Not on file Travel End Travel History Travel Start No recent travel history available. Date Recorded COVID-19 Exposure Response 03/16/2020 11:32 AM CDT In the last month, have [...]
--- OUTSIDE RECORDS SUMMARY | 2020-03-28 23:40 | XMS REPORT | Encounter Summary ---
Author Author [facility] Organization [facility] Address Unknown Phone Unavailable Care Team Providers Care Trauma Manager Name Role Phone Sherman Spicer MD Unavailable Reyna Bond Unavailable Unavailable Indiana Bauer APRN PCP Unavailable Lenka Fuentes RN [phone] Unavailable Encounter Details Care Team Description Date Type Department Lenka Fuentes, GORDO 03/21/2020 Patient [facility] [address] [place] [id number] Social History Date Tobacco Use Types Packs/Day [...] impairment: No documented as of this encounter Progress Notes * Lenka Fuentes, GORDO - 03/21/2020 12:56 PM CDT Continuum of Care Multiple Visit Patient - Case Management Note NAME: David Rice : 1960 AGE: 59 y.o. Admits in past 12 mos: ED Visits: 0 Admissions: 5 Source of Information: Care Planning Considerations: Pending Assessment Interventions: RNCM unable to complete MVP assessment at this time due to medic al issues- acute encephalopathy and delerium. RNCM to continue follow up and at tempt assessment at later time when patient is more stable. Drivers of Utilization History: Pending Assessment. MVP team to continue to follow and provide further care planning considerations as appropriate. Lenka Fuentes RN Office #[phone] documented in this encounter Plan of Treatment Not on filedocumented as of this encounter Goals Goal Patient Associated Recent Progress Patient-Stat Aut hor Goal Type Problems ed? GOAL General No Tana Saldivar RN Note: Get stronger Take Medication at Right Time, Medication No Lind, Right Day, Right Order, With Adherence Danilo Moseley N or Without Food Correctly documented as of this encounter Visit Diagnoses Not on filedocumented in this encounter
--- OUTSIDE RECORDS SUMMARY | 2020-03-28 23:40 | XMS REPORT | Encounter Summary ---
Author Author [facility] Organization [facility] Address Unknown Phone Unavailable Care Team Providers Care Embedded Software Development Engineer Name Role Phone Sherman Spicer MD Unavailable Reyna Bond Unavailable Unavailable Indiana Bauer APRN PCP Unavailable Lenka Fuentes RN [phone] Unavailable Reason for Visit * Reason Comments Follow-up Phone Call Encounter Details Care Team Description Date Type Department Tsering Diehl, GORDO Follow-up Phone Call 03/25/2020 Telephone [facility] [address] [place] [address] Social History Date Tobacco Use [...] Telephone Encounter - Tsering Diehl RN - 03/25/2020 4:35 PM CDT This RN contacted pt in regards to VM on triage line requesting MPE presence in hospital. No answer, LVM with call back number. * Telephone Encounter - Tsering Diehl, GOROD - 03/25/2020 4:20 PM CDT ----- Message from Mercy Carbajal LPN sent at 03/25/2020 1:16 PM CDT ----- Regarding: MPE- in hospital VM from patient on triage line. Said that he is in [facility] and would like [facility]PE to come see him as soon as possible. He is on 8th floor, #[phone]. documented in this encounter Plan of Treatment [...]
--- OUTSIDE RECORDS SUMMARY | 2020-03-28 23:40 | XMS REPORT | Encounter Summary ---
Author Author [facility] Organization [facility] Address Unknown Phone Unavailable Care Team Providers Care Landcare Facilitator Name Role Phone Sherman Spicer MD Unavailable Reyna Bond Unavailable Unavailable Indiana Bauer APRN PCP Unavailable Lenka Fuentes RN [phone] Unavailable Reason for Referral * Consult, Test & Treat (Routine) Referred By Contact Referred To Contact Status Reason Specialty Diagnoses / Procedures Lev Wiggins MD [address] [facility] [address] [place] [address] New Request Diagnoses Atrial flutter with rapid ventricular response (HCC) P rocedures REQUEST FOR CARDIOLOGY APPOINTMENT Reason for Visit * Reason Comments Appointment Encounter Details Care Team Description Date Type Department Samia Garzon RN Appointment 03/21/2020 Telephone [facility] [place] [address] [facility] [address] [place], [place] [id number] Social History Date Tobacco Use Types Packs/Day [...] encounter Miscellaneous Notes * Telephone Encounter - Samia Garzon RN - 03/26/2020 11:48 AM CDT 03/26/2020 11:48 AM Neither pt numbers on file are working at this time. Sent letter to pt. * Telephone Encounter - Samia Garzon RN - 03/21/2020 1:28 PM CDT ----- Message from Lev Wiggins MD sent at 03/21/2020 1:15 PM CDT ----- Could we please arrange a follow-up with Dr. Rodriguez in the next 4-6 to weeks, shireen nk you documented in this encounter Plan of Treatment [...]
--- OUTSIDE RECORDS SUMMARY | 2020-03-28 23:40 | XMS REPORT | Encounter Summary ---
Author Author [facility] Organization [facility] Address Unknown Phone Unavailable Care Team Providers Care Firewall Administrator Name Role Phone Sherman Spicer MD Unavailable Reyna Bond Unavailable Unavailable Indiana Bauer APRN PCP Unavailable Reason for Visit * Auth/Cert Referred By Contact Referred To Contact Status Reason Specialty Diagnoses / Procedures Diagnoses E. coli sepsis (HCC) Septic Gallbladder Encounter Details Care Team Description Date Type Department Siva Oliveira MD [address] [facility] [address] [place] [id number] 03/16/2020 [facility] [address] [place] [id number] Social History Date Tobacco Use Types [...] Date End Date Medication Sig Dispensed Refills 03/27/2020 acetaminophen (TYLENOL) Take two 0 325 mg tablet tablets by mouth every 4 hours as needed. This medication may be purchased from over the counter from your preferred pharmacy 12/14/2018 ALPRAZolam (XANAX) 1 mg Take one 0 tablet tablet by mouth three times daily as needed for Anxiety. 03/27/2020 amiodarone (CORDARONE) Take two 60 tablet 1 200 mg tablet tablets by mouth daily. Take with food. Follow up with child care centre manager for dose adjustments 01/22/2020 apixaban (ELIQUIS) 5 mg Take one 60 tablet 1 tablet tablet by mouth twice daily. 01/22/2020 atorvastatin (LIPITOR) 40 Take one 90 tablet 0 mg tablet tablet by mouth daily. 03/28/2020 dilTIAZem CD (CARDIZEM Take one 90 capsule 0 CD) 120 mg capsule capsule by mouth daily. 03/27/2020 furosemide (LASIX) 20 mg Take one 60 tablet 1 tablet tablet by mouth twice daily. levothyroxine (SYNTHROID) Take 50 mcg 0 50 mcg tablet by mouth daily 30 minutes before breakfast. 03/01/2020 lisinopriL (ZESTRIL) 10 Take one 90 tablet 3 mg tablet tablet by mouth daily. 03/27/2020 melatonin 5 mg tab Take one 0 tablet by mouth at bedtime daily. 03/01/2020 Miscellaneous Medical automatic 1 each 0 Supply [facility] blood pressure machine to monitor VS daily. 03/27/2020 oxyCODONE (ROXICODONE) 10 Take one 12 tablet 0 mg tablet tablet by mouth every 12 hours as needed 03/27/2020 senna (SENOKOT) 8.6 mg Take one 0 tablet tablet by mouth twice daily. 03/28/2020 traZODone (DESYREL) 50 mg Take one 30 tablet 0 tablet tablet by mouth at bedtime as needed. 03/01/2020 03/27/2020 amiodarone (CORDARONE) Take two 266 tablet 0 200 mg tablet tablets by mouth twice daily for 14 days, THEN one tablet three times daily for 30 days, THEN two tablets daily for 60 days. Take with food. 03/28/2020 03/28/2020 dilTIAZem CD (CARDIZEM Take one 90 capsule 0 CD) 120 mg capsule capsule by mouth daily. 03/28/2020 03/28/2020 dilTIAZem CD (CARDIZEM Take one 90 capsule 0 CD) 120 mg capsule capsule by mouth daily. 03/23/2020 dofetilide (TIKOSYN) 125 Take 125 mcg 0 mcg capsule by mouth twice daily. 03/27/2020 oxyCODONE (ROXICODONE) 10 Take 10 mg by 0 mg tablet mouth every 3-4 hours as needed for Pain 03/28/2020 03/28/2020 traZODone (DESYREL) 50 mg Take one 30 tablet 0 tablet tablet by mouth at bedtime as needed. 03/27/2020 03/28/2020 traZODone (DESYREL) 50 mg Take one 30 tablet 0 tablet tablet by mouth at bedtime as needed. documented as of this encounter Plan of [...] Procedure Name Priority Date/Time Associated Diag nosis CT ABD/PELV WO CONTRAST STAT 03/16/2020 9:[address] CHEST WO CONTRAST STAT 03/16/2020 9:43 PM CDT documented in this encounter Visit Diagnoses Not on filedocumented in this encounter Administered Medications Action Date Dose Rate Site Medication Order MAR Action 03/16/2020 8:25 PM CDT 30 mL diatrizoate meglumine & sodium 66-10 % Given (GWENGASTROTAYA) oral solution 30 mL 30 mL, Per NG tube, ONCE, 1 dose, 03/16/20 at 2029 documented in this encounter
--- OUTSIDE RECORDS SUMMARY | 2020-03-28 23:40 | XMS REPORT | Encounter Summary ---
Author Author [facility] Organization [facility] Address Unknown Phone Unavailable Care Team Providers Care Conductor Freight Name Role Phone Sherman Spicer MD Unavailable Reyna Bond Unavailable Unavailable Indiana Bauer APRN PCP Unavailable Lenka Fuentes RN [phone] Unavailable Reason for Visit * Auth/Cert Referred By Contact Referred To Contact Status Reason Specialty Diagnoses / Procedures Diagnoses E. coli sepsis (HCC) Septic Gallbladder Encounter Details Care Team Description Date Type Department Siva Oliveira MD [address] [facility] L[facility] [address] [place] [id number] [phone] Nikolai Whalen MD [address] [facility] Lvl [address] [place] [address] [phone] Jaylene Cloud MD [address] [place] [address] [phone] E. coli sepsis (HCC) 03/16/2020 [facility] 03/28/2020 [address] [place] [address] Social History Date Tobacco Use Types Packs/Day [...] 03/18/2020 7:27 AM CDT Body Mass Index documented in [...] daily. Take with food. Follow up with clean out driller helper for dose adjustments 01/22/2020 apixaban (ELIQUIS) 5 [...] Miscellaneous Medical automatic 1 each 0 Supply [facility] blood pressure machine to monitor VS daily. 03/27/2020 oxyCODONE (ROXICODONE) 10 Take one 12 tablet 0 mg tablet tablet by mouth every 12 hours as needed 03/27/2020 senna (SENOKOT) 8.6 mg Take one 0 tablet tablet by mouth twice daily. 03/28/2020 traZODone (DESYREL) 50 mg Take one 30 tablet 0 tablet tablet by mouth at bedtime as needed. documented as of this encounter Progress Notes * Frida Meier RN - 03/28/2020 2:34 PM CDT David Rice discharged on 03/28/2020. . Discharge instructions reviewed with patient. Valuables returned: Personal Items / Valuables: Cell Phone Where Are Valuables Stored?: with pt. Home medications: . Functional assessment at discharge complete: Yes . * Jaylene Cloud MD - 03/27/2020 3:35 PM CDT General Progress Note Name: David Rice Today's Date: 03/27/2020 Admission Date: 03/16/2020 LOS: 11 days Assessment/Plan: Principal Problem: E. 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 History of PAF, episodes recurrent narrow complex tachycardia Patient was treated with IV metoprolol and IV amiodarone loading per cardiology recommendation Currently on amiodarone 400 mg p.o. daily, Cardizem CD 120 mg daily,continue E liquis for stroke prevention. 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 male. Patient is seen and examined at bedside, he is complaining about lower back pain and requesting oxycodone that he was taking f or more than a decade, he dislikes tramadol, patient stated that he is going thr ough grief as his son was killed and buried him while patient is hospitalized [facility] when offered associate scientist services he refused "I already talked to my student services counselor" Medications Scheduled Meds:amiodarone (CORDARONE) tablet 400 mg, 400 mg, Oral, QDAY apixaban (ELIQUIS) tablet 5 mg, 5 mg, Oral, BID atorvastatin (LIPITOR) tablet 40 mg, 40 mg, Oral, QDAY dilTIAZem CD (cardIZEM CD) capsule 120 mg, 120 mg, Oral, QDAY famotidine (PEPCID) tablet 20 mg, 20 mg, Oral, BID furosemide (LASIX) tablet 20 mg, 20 mg, Oral, BID(9-17) guaiFENesin LA (MUCINEX) tablet 600 mg, 600 mg, Oral, BID levothyroxine (SYNTHROID) tablet 50 mcg, 50 mcg, Oral, QDAY(07) melatonin tablet 5 mg, 5 mg, Oral, QHS senna (SENOKOT) tablet 1 tablet, 1 tablet, Oral, BID Continuous Infusions: PRN and Respiratory Meds:acetaminophen Q4H PRN, aminophylline PRN, eucalyptus-me nthol Once PRN, eucalyptus-menthol Q2H PRN, nitroglycerin Q5 MIN PRN, oxyCODONE Q12H PRN, polyethylene glycol 3350 QDAY PRN, sodium chloride 0.9% (NS) PRN, traZ ODone QHS PRN Review of Systems: All other systems reviewed and are negative. Objective: Vital Signs: Last Filed Vital Signs: 24 Vic r Range BP: 132/87 (03/27 1531) Temp: 36.7 C (98 F) (03/27 1531) Pulse: 89 (03/27 1531) Respirations: 18 PER MINUTE (03/27 1531) SpO2: 98 % (03/27 1531) BP: (100-148)/(60-87) Temp: [36.6 C (97.9 F)-36.8 C (98.3 F)] Pulse: [83-95] Respirations: [15 PER MINUTE-18 PER MINUTE] SpO2: [94 %-98 %] Intensity Pain Scale (Self Report): 8 (03/27/20 1137) Vitals: 03/25/20 0517 03/26/20 0519 03/27/20 0327 Weight: 100.9 kg (222 lb 7.1 oz) 94.7 kg (208 lb 12.4 oz) 90.5 kg (199 lb 9.6 oz ) Intake/Output Summary: (Last 24 hours) Intake/Output Summary (Last 24 hours) at 03/27/2020 1647 Last data filed at 03/27/2020 1152 Gross per 24 hour Intake 0 ml Output 965 ml Net -965 ml Stool Occurrence: 0 Physical Exam General appearance: Cooperative and no distress Respiratory: clear to auscultation bilaterally, no wheezing or rales Cardiovascular: regular rate and rhythm, S1, S2 normal, no murmur or gallop GI: Abdomen: soft, non distended, non-tender. Bowel sounds present, no organomeg itzel Extremities: moves all limbs, no redness or tenderness in the calves or thighs, no edema Genitourinary: no bladder distension Skin: dry, no rashes Neurologic: Awake oriented x3, no situational awareness Lab Review 24-hour labs: Results for orders placed or performed during the hospital encounter of 03/16/20 (from the past 24 hour(s)) CBC AND DIFF Collection Time: 03/27/20 4:48 AM Result Value Ref Range White Blood Cells 8.1 4.5 - 11.0 K/UL RBC 3.94 (L) 4.4 - 5.5 M/UL Hemoglobin 11.2 (L) 13.5 - 16.5 GM/DL Hematocrit 32.4 (L) 40 - 50 % MCV 82.3 80 - 100 FL MCH 28.5 26 - 34 PG MCHC 34.6 32.0 - 36.0 G/DL RDW 14.7 11 - 15 % Platelet Count 533 (H) 150 - 400 K/UL MPV 8.2 7 - 11 FL Neutrophils 71 41 - 77 % Lymphocytes 10 (L) 24 - 44 % Monocytes 14 (H) 4 - 12 % Eosinophils 4 0 - 5 % Basophils 1 0 - 2 % Absolute Neutrophil Count 5.83 1.8 - 7.0 K/UL Absolute Lymph Count 0.77 (L) 1.0 - 4.8 K/UL Absolute Monocyte Count 1.11 (H) 0 - 0.80 K/UL Absolute Eosinophil Count 0.33 0 - 0.45 K/UL Absolute Basophil Count 0.09 0 - 0.20 K/UL COMPREHENSIVE METABOLIC PANEL Collection Time: 03/27/20 4:48 AM Result Value Ref Range Sodium 140 137 - 147 MMOL/L Potassium 3.6 3.5 - 5.1 MMOL/L Chloride 105 98 - 110 MMOL/L Glucose 96 70 - 100 MG/DL Blood Urea Nitrogen 18 7 - 25 MG/DL Creatinine 1.01 0.4 - 1.24 MG/DL Calcium 8.5 8.5 - 10.6 MG/DL Total Protein 5.7 (L) 6.0 - 8.0 G/DL Total Bilirubin 0.7 0.3 - 1.2 MG/DL Albumin 3.1 (L) 3.5 - 5.0 G/DL Alk Phosphatase 80 25 - 110 U/L AST (SGOT) 18 7 - 40 U/L CO2 26 21 - 30 MMOL/L ALT (SGPT) 25 7 - 56 U/L Anion Gap 9 3 - 12 eGFR Non >60 >60 mL/min eGFR >60 >60 mL/min MAGNESIUM Collection Time: 03/27/20 4:48 AM Result Value Ref Range Magnesium 2.0 1.6 - 2.6 mg/dL Point of Care Testing (Last 24 hours) Glucose: 96 (03/27/20 0448) Radiology and other Diagnostics Review: No pertinent radiology. Jaylene Cloud MD Pager: [phone] * Carie Crouch, PT - 03/27/2020 2:00 PM CDT PHYSICAL THERAPY NOTE Name: David Rice : 1960 Age: 59 y.o. Admission Date: 03/16/2020 LOS: 11 days 8:30 AM, 10 AM - Patient was unavailable for physical therapy due to being off u nit for part 1 of cardiac stress test. RN reports plan for patient to undergo p art 2 in early afternoon. Physical therapy will continue to follow and provide intervention as indicated after completion of test. 2 PM - Patient remains off unit for part 2 of stress test. PT to follow-up at a later time/date. Therapist: Carie Crouch, PT Date: 03/27/2020 * Amee Adamson - 03/27/2020 10:25 AM CDT OCCUPATIONAL THERAPY PROGRESS NOTE Name: David Rice : 1960 Age: 59 y.o. Admission Date: 03/16/2020 LOS: 11 days Mobility Patient Turn/Position: Chair Progressive Mobility Level: Active transfer to chair Distance Walked (feet): 25 ft Level of Assistance: Assist X1 Assistive Device: None Time Tolerated: 0-10 minutes Activity Limited By: Weakness Subjective Pertinent Dx per Physician: PMHx of fibrillation/flutter s/p ablation 05/25/2019, HTN, anxiety, chronic back pain, chronic headaches, chronic nausea, chronic roldan ise, hypothyroidism, PE and mesenteric venous thrombosis on anticoagulation with Ira who presented from OSH with severe sepsis. He was also diagnosed with U TI and pneumonia at OSH. Cardiology consulted for narrow complex tachycardia dur ing this admission and pt placed on amiodarone. He was extubated on 03/20. He gerri ins volume overloaded. Precautions: Falls Pain / Complaints: Patient agrees to participate in therapy Objective Psychosocial Status: Willing and Cooperative to Participate Home Living Type of Home: House Home Layout: One Level Bathroom Shower / Tub: Tub/Shower Unit Bathroom Toilet: Standard Comment: Notes reflect that he has one stair to enter. Pt [place]. Prior Function Level Of [place]: Independent with ADLs and functional transfers;Independen t with homemaking w/ ambulation Lives With: Alone Receives Help From: None Needed Other Function Comments: Lives with his two greyhounds. ADL's Where Assessed: Chair Eating Assist: Independent LE Dressing Assist: Minimal Assist LE Dressing Deficits: Increased Time To Complete;Don/Doff R Sock;Don/Doff L Sock ADL Mobility Bed Mobility: Supine to Sit: Standby assist Transfer Type: Sit to stand Transfer: Assistance Level: From;Bed;Minimal assist Transfer: Assistive Device: None Transfer: Type of Assistance: For balance;For safety considerations Other Transfer Type: Stand to sit Other Transfer: Assistance Level: To;Bedside chair;Minimal assist Other Transfer: Assistive Device: None Other Transfer: Type of Assistance: For balance;For safety considerations End of Activity Status: Up in chair;Nursing notified Transfer Comments: Entered patient's room due to bed alarm sounding. Patient req uesting to have sheets changed. Stood up and started moving to chair without wal ker or assistance. Required minimal physical assist for balance and safety to ge t to chair. Patient sat in chair without good safety precautions of making sure chair was behind him or reaching back to lower into chair safely. Cognition Comprehension: WFL to Adequately Complete Self Care Tasks Safely Expression: WFL Adequate to Meet Daily Needs Problem Solving: Decreased Judgment/Safety Attention: Awake/Alert Cognition Comment: Patient more conversive this date but continues to present wi th impulsive behaviors and impaired safety awareness. Assessment Assessment: Decreased ADL Status;Decreased Endurance;Decreased High-Level ADLs;D ecreased Self-Care Trans Prognosis: Good;w/Cont OT s/p Acute Discharge Goal Formulation: Patient Comments: Patient is limited by his safety awareness and need for physical katharina tance with mobility. Will benefit from ongoing therapeutic intervention. AM-PAC 6 Clicks Daily Activity Inpatient Putting on and taking off regular lower body clothes?: A Lot Bathing (Including washing, rinsing, drying): A Lot Toileting, which includes using toilet, bedpan, or urinal: A Little Putting on and taking off regular upper body clothing: A Little Taking care of personal grooming such as brushing teeth: A Little Eating meals?: None Daily Activity Raw Score: 17 Standardized (t-scale) score: 37.26 CMS 0-100% Score: 50.11 CMS G Code Modifier: CK Plan Progress: Progressing Toward Goals OT Frequency: 3-5x/week OT Plan for Next Visit: Safety awareness and balance for grooming at sink. ADL Goals Patient Will Perform Grooming: w/ Minimum Assist;in Chair;at Edge of Bed Patient Will Perform UE Dressing: w/ Moderate Assist Patient Will Perform LE Dressing: w/ Moderate Assist Functional Transfer Goals Pt Will Transfer To Bedside Commode: Met Pt Will Transfer To Toilet: w/ Stand By Assist OT Discharge Recommendations Recommendation: Inpatient setting Patient Currently Requires Physical Assist With: Ambulation;Bathing;Dressing;Jean Claude oming;Toileting;Transfers Therapist: Amee Patel OTR/L Date: 03/27/2020 * Jaylene Cloud MD - 03/26/2020 2:03 PM CDT General Progress Note Name: David Rice Today's Date: 03/26/2020 Admission Date: 03/16/2020 LOS: 10 days Assessment/Plan: Principal Problem: E. 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 Lasix Severe sepsis, resolved, due toUTI and gram-negative mica pneumonia,improving Patient was treated with broad-spectrum antibioticsivvancomycin and Zosyn, now de-escalated to IV Zosyncompleted on03/23/2020.Reviewed notes reported ly patient urine cultures are positive for E. coli and blood cultures done on grew staph hemolyticus OSH,MRSA swab was negativeOSH History of PAF, episodes recurrent narrow complex tachycardia Patient was treated with IV metoprolol and IV amiodarone loading per cardiology recommendation Currently on amiodarone 400 mg p.o. daily, Cardizem CD 120 mg daily,continue E liquis for stroke prevention. Type II NSTEMI,patient is complaining about intermittent chest pain, trop is m ildly elevated with out a peak, discussed with sheeter operator who suggested s tress test, re consult them if it is positive, noted history of nonobstructive C AD, ordered Lexiscan today Troponin was mildly elevated without a significant peak likely fromwall stress and tachycardia setting of sepsis, echo 03/18-preserved EF 60% with no regional wall motion abnormalities, no hemodynamically significant valvular disease,per charting patient had left heart catheterization 01/05/2019 which showed minimal coronary artery disease/nonocclusive disease Acute renal injurydue to sepsis, resolved Serum creatinine had improved and returned to baseline Essential hypertension,today hisblood pressure is at goal, 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 SW is assisting patient in pl acement Consults:Cardiology Antibiotic end date:03/23/2020 DVT prophylaxis:Anniequis Code Status;full code Dispo:dc if stress test is negative and placement is confirmed, anticipated dc 03/27 Subjective David Seymour Rice is a 59 y.o. male. Patient is seen and examined at bedside, per R N patient is complaining about intermittent chest pain, declined to eat and he w ould like to stay in hospital for few days. When asked about chest pain he denie d and appeared disengaged during my visit Medications Scheduled Meds:amiodarone (CORDARONE) tablet 400 mg, 400 mg, Oral, QDAY apixaban (ELIQUIS) tablet 5 mg, 5 mg, Oral, BID atorvastatin (LIPITOR) tablet 40 mg, 40 mg, Oral, QDAY dilTIAZem CD (cardIZEM CD) capsule 120 mg, 120 mg, Oral, QDAY famotidine (PEPCID) tablet 20 mg, 20 mg, Oral, BID furosemide (LASIX) tablet 20 mg, 20 mg, Oral, BID(-) guaiFENesin LA (MUCINEX) tablet 600 mg, 600 mg, Oral, BID levothyroxine (SYNTHROID) tablet 50 mcg, 50 mcg, Oral, QDAY() senna (SENOKOT) tablet 1 tablet, 1 tablet, Oral, BID Continuous Infusions: PRN and Respiratory Meds:acetaminophen Q4H PRN, eucalyptus-menthol Q2H PRN, poly ethylene glycol 3350 QDAY PRN, traMADoL Q6H PRN Review of Systems: All other systems reviewed and are negative. Objective: Vital Signs: Last Filed Vital Signs: 24 Vic r Range BP: 147/78 (03/26 1253) Temp: 36.9 C (98.5 F) (03/26 1253) Pulse: 85 (03/26 1253) Respirations: 16 PER MINUTE (03/26 1253) SpO2: 97 % (03/26 1253) BP: (128-147)/(69-86) Temp: [36.6 C (97.9 F)-36.9 C (98.5 F)] Pulse: [81-96] Respirations: [15 PER MINUTE-18 PER MINUTE] SpO2: [96 %-98 %] Intensity Pain Scale (Self Report): 7 (03/26/20823) Intensity Pain Scale (Self Report): 3 (03/26/20823) Vitals: 03/23/20 0314 03/25/20 0517 03/26/20 0519 Weight: 108.2 kg (238 lb 8.6 oz) 100.9 kg (222 lb 7.1 oz) 94.7 kg (208 lb 12.4 o z) Intake/Output Summary: (Last 24 hours) Intake/Output Summary (Last 24 hours) at 03/26/2020 1404 Last data filed at 03/26/2020 1253 Gross per 24 hour Intake 390 ml Output 1750 ml Net -1360 ml Stool Occurrence: 0 Physical Exam General appearance: Normal mental status, cooperative and no distress Respiratory: clear to auscultation bilaterally, no wheezing or rales Cardiovascular: regular rate and rhythm, S1, S2 normal, no murmur or gallop GI: Abdomen: soft, non distended, non-tender. Bowel sounds present, no organomeg itzel Extremities: moves all limbs, no redness or tenderness in the calves or thighs, no edema Genitourinary: no bladder distension Skin: dry, no rashes Neurologic: AAOX3, non focal Lab Review 24-hour labs: Results for orders placed or performed during the hospital encounter of 03/16/20 (from the past 24 hour(s)) TROPONIN-I Collection Time: 03/26/20 12:45 AM Result Value Ref Range Troponin-I 0.09 (H) 0.0 - 0.05 NG/ML TROPONIN-I Collection Time: 03/26/20 3:15 AM Result Value Ref Range Troponin-I 0.10 (H) 0.0 - 0.05 NG/ML CBC AND DIFF Collection Time: 03/26/20 4:31 AM Result Value Ref Range White Blood Cells 10.7 4.5 - 11.0 K/UL RBC 3.73 (L) 4.4 - 5.5 M/UL Hemoglobin 10.7 (L) 13.5 - 16.5 GM/DL Hematocrit 30.6 (L) 40 - 50 % MCV 82.2 80 - 100 FL MCH 28.6 26 - 34 PG MCHC 34.8 32.0 - 36.0 G/DL RDW 14.5 11 - 15 % Platelet Count 500 (H) 150 - 400 K/UL MPV 8.5 7 - 11 FL Neutrophils 71 41 - 77 % Lymphocytes 11 (L) 24 - 44 % Monocytes 13 (H) 4 - 12 % Eosinophils 4 0 - 5 % Basophils 1 0 - 2 % Absolute Neutrophil Count 7.71 (H) 1.8 - 7.0 K/UL Absolute Lymph Count 1.18 1.0 - 4.8 K/UL Absolute Monocyte Count 1.35 (H) 0 - 0.80 K/UL Absolute Eosinophil Count 0.45 0 - 0.45 K/UL Absolute Basophil Count 0.06 0 - 0.20 K/UL COMPREHENSIVE METABOLIC PANEL Collection Time: 03/26/20 4:31 AM Result Value Ref Range Sodium 139 137 - 147 MMOL/L Potassium 3.7 3.5 - 5.1 MMOL/L Chloride 109 98 - 110 MMOL/L Glucose 88 70 - 100 MG/DL Blood Urea Nitrogen 24 7 - 25 MG/DL Creatinine 1.05 0.4 - 1.24 MG/DL Calcium 8.2 (L) 8.5 - 10.6 MG/DL Total Protein 5.5 (L) 6.0 - 8.0 G/DL Total Bilirubin 0.6 0.3 - 1.2 MG/DL Albumin 3.0 (L) 3.5 - 5.0 G/DL Alk Phosphatase 76 25 - 110 U/L AST (SGOT) 19 7 - 40 U/L CO2 22 21 - 30 MMOL/L ALT (SGPT) 26 7 - 56 U/L Anion Gap 8 3 - 12 eGFR Non >60 >60 mL/min eGFR >60 >60 mL/min MAGNESIUM Collection Time: 03/26/20 4:31 AM Result Value Ref Range Magnesium 2.0 1.6 - 2.6 mg/dL Point of Care Testing (Last 24 hours) Glucose: 88 (03/26/20 0431) Radiology and other Diagnostics Review: Pertinent radiology reviewed. Jaylene Cloud MD Pager: [phone] * Carie Crouch, PT - 03/26/2020 10:08 AM CDT PHYSICAL THERAPY PROGRESS NOTE Name: David Rice : 1960 Age: 59 y.o. Admission Date: 03/16/2020 LOS: 10 days Mobility Patient Turn/Position: Chair Progressive Mobility Level: Walk in hallway Distance Walked (feet): 60 ft Level of Assistance: Assist X1 Assistive Device: Walker Time Tolerated: 0-10 minutes Activity Limited By: Weakness;Mental Status Variability Subjective Significant hospital events: PMHx of fibrillation/flutter s/p ablation 05/25/2019, HTN, anxiety, chronic back pain, chronic headaches, chronic nausea, chronic mal aise, hypothyroidism, PE and mesenteric venous thrombosis on anticoagulation wit jennifer Roth PTA who presented from OSH with severe sepsis. He was also diagnosed w ith UTI and pneumonia at OSH. Cardiology consulted for narrow complex tachycardi a during this admission and pt placed on amiodarone. He was extubated on 03/20. at evening he became agitated with hallucinations. Also had increased O2 require ment. He remains volume overloaded. Mental / Cognitive Status: Alert;Cooperative(Delayed processing, minimally verba l) Persons Present: Occupational Therapist Pain: Patient has no complaint of pain Pain Interventions: Patient assisted into position of comfort Patient Owned Equipment: None Home Situation: Lives Alone Type of Home: House Entry Stairs: 1-2 Stairs Comments: Patient highly confused and difficulty to direct patient this afternoo n. I Bed Mobility/Transfer Bed Mobility: Supine to Sit: Head of Bed Elevated;Standby Assist Transfer Type: Sit to Stand(bed-->toilet-->chair) Transfer: Assistance Level: Minimal Assist Transfer: Assistive Device: Roller Walker Comments: HOB 50 degress: 123/78 mmHg, BP 90 bpm. Sitting EOB: 142/84 mmHg, B P 92 bpm. Standin/83 mmHg, BP 96 bpm. Denied dizziness with position ch lucy, but patient appeared symptomatic during ambulation. More details in gait section. Balance Sitting Balance: Static Sitting Balance;2 UE Support;Standby Assist Standing Balance: Static Standing Balance;2 UE support;Minimal Assist;Dynamic St anding Balance;Moderate Assist Gait Gait Distance: 60 feet Gait: Assistance Level: Moderate Assist Gait: Assistive Device: Roller Walker Gait: Descriptors: Pathway deviations;Scissoring;Loss of balance Comments: Patient denies dizziness/lightheadedness, but kept taking hands off RW to hold his head. At one point, patient reached for couch in hallway to support self. Frequent cues to keep hands on RW/stop walking if needing to take single hand off RW. Cues to roll RW vs. pick it up to advance position. Ataxic gait and intermittent retropulsion. Tried to get patient to sit in hallway chair wh en appearing symptomatic, but unable to redirect patient (processing difficulty vs. behavioral?). Assessment/Progress Impaired Mobility Due To: Decreased Strength;Cognitive Deficits;Medical Status L imitation;Impaired Balance Assessment/Progress: Should Improve w/ Continued PT Comments: Patient minimally verbal and with delayed responses- suspect processin g difficulty and some cunfusion. Required mod assistance for gait instability a nd frequent cues for safety. Patient appears to by experiencing head symptoms d uring mobility but denies dizziness or lightheadedness (stops to hold head with both hands). Will benefit from ongoing medical mgmt and ongoing PT. AM-PAC 6 Clicks Basic Mobility Inpatient Turning from your back to your side while in a flat bed without using bed rails: None Moving from lying on your back to sitting on the side of a flatbed without using bedrails : A Little Moving to and from a bed to a chair (including a wheelchair): A Little Standing up from a chair using your arms (e.g. wheelchair, or bedside chair): A Little To walk in hospital room: A Lot Climbing 3-5 steps with a railing: A Lot Raw Score: 17 Standardized (T-scale) Score: 39.67 Basic Mobility CMS 0-100%: 43.83 CMS G Code Modifier for Basic Mobility: CK Goals Goal Formulation: With Patient, Patient Unable to Participate in Goal Setting Time For Goal Achievement: 7 days Patient Will Go Supine To/From Sit: w/ Stand By Assist Patient Will Transfer Bed/Chair: w/ Stand By Assist Patient Will Transfer Sit to Stand: w/ Stand By Assist Patient Will Ambulate: 31-50 Feet, w/ Walker, w/ Stand By Assist Plan Treatment Interventions: Mobility Training;Strengthening;Balance Activities Plan Frequency: 5 Days per Week PT Plan for Next Visit: Ax2 for safety/chair-follow if doing hallway distances. Bed mobility from flat, progress gait distance. Work on safety awareness and g ait quality. PT Discharge Recommendations Recommendation: Inpatient setting Patient Currently Requires Physical Assist With: All mobility Patient Currently Requires Equipment: (Ongoing assessment - currently utilizing RW) Therapist: Carie Crouch, PT Date: 03/26/2020 * Ramez Fragoso RN - 03/26/2020 12:45 AM CDT Patient complaining of intermittent chest pain with exertion. Pain ranges anywhe re between a 3 and a 8. Notified provider. ekg and trending trops. * Jaylene Cloud MD - 03/25/2020 1:46 PM CDT General Progress Note Name: David Rice Today's Date: 03/25/2020 Admission Date: 03/16/2020 LOS: 9 days Assessment/Plan: Principal Problem: E. 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 Radha Sarmiento was re moved few days ago Severe sepsis, resolved, due to UTI and gram-negative mica pneumonia,improving Patient was treated with broad-spectrum antibioticsivvancomycin and Zosyn, now de-escalated to IV Zosyncompleted on 03/23/2020.Reviewed notes reportedl y patient urine cultures are positive for E. coli and blood cultures done on 02/19 3 grew staph hemolyticus OSH,MRSA swab was negativeOSH History of PAF, episodes recurrent narrow complex tachycardia Patient was treated with IV metoprolol and IV amiodarone loading per cardiology recommendation Currently on amiodarone 400 mg p.o. daily, Cardizem CD 120 mg daily,continue E liquis for stroke prevention. Type II NSTEMI, history of nonobstructive CAD, complained about cp last night, E KG with no ischemic changes, mildly elevated trop, if cp is recurrent will dw wi th cardiology Troponin was mildly elevated without a significant peak likely fromwall stress and tachycardia setting of sepsis, echo 03/18-preserved EF 60% with no regional wall motion abnormalities, no hemodynamically significant valvular disease,per charting patient had left heart catheterization 01/05/2019 which showed minimal coronary artery disease/nonocclusive disease Acute renal injurydue to sepsis, resolved Serum creatinine had improved and returned to baseline Essential hypertension,today hisblood pressure is at goal, 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 male. Patient is seen and examined at bedside, his m ental status is better and back to normal, he is complaining about lower back pa in and insufficient pain control Medications Scheduled Meds:amiodarone (CORDARONE) tablet 400 mg, 400 mg, Oral, QDAY apixaban (ELIQUIS) tablet 5 mg, 5 mg, Oral, BID atorvastatin (LIPITOR) tablet 40 mg, 40 mg, Oral, QDAY dilTIAZem CD (cardIZEM CD) capsule 120 mg, 120 mg, Oral, QDAY famotidine (PEPCID) tablet 20 mg, 20 mg, Oral, BID furosemide (LASIX) tablet 20 mg, 20 mg, Oral, BID(9-17) guaiFENesin LA (MUCINEX) tablet 600 mg, 600 mg, Oral, BID levothyroxine (SYNTHROID) tablet 50 mcg, 50 mcg, Oral, QDAY(07) QUEtiapine (SEROquel) tablet 50 mg, 50 mg, Per NG tube, QHS senna (SENOKOT) tablet 1 tablet, 1 tablet, Oral, BID Continuous Infusions: PRN and Respiratory Meds:acetaminophen Q4H PRN, eucalyptus-menthol Q2H PRN, poly ethylene glycol 3350 QDAY PRN, traMADoL Q6H PRN Review of Systems: All other systems reviewed and are negative. Objective: Vital Signs: Last Filed Vital Signs: 24 Vic r Range BP: 126/78 (03/25 1200) Temp: 37 C (98.6 F) (03/25 1200) Pulse: 94 (03/25 1226) Respirations: 18 PER MINUTE (03/25 1200) SpO2: 96 % (03/25 1200) BP: (103-153)/(60-83) Temp: [36.7 C (98.1 F)-37.2 C (98.9 F)] Pulse: [77-94] Respirations: [16 PER MINUTE-18 PER MINUTE] SpO2: [94 %-100 %] Intensity Pain Scale (Self Report): 8 (03/25/20 1250) Intensity Pain Scale (Self Report): 7 (03/25/20 0944) Vitals: 03/20/20 0200 03/23/20 0314 03/25/20 0517 Weight: 112.6 kg (248 lb 3.8 oz) 108.2 kg (238 lb 8.6 oz) 100.9 kg (222 lb 7.1 o z) Intake/Output Summary: (Last 24 hours) Intake/Output Summary (Last 24 hours) at 03/25/2020 1346 Last data filed at 03/25/2020 1254 Gross per 24 hour Intake 610 ml Output 1025 ml Net -415 ml Stool Occurrence: 1 Physical Exam General appearance: Cooperative and no distress Respiratory: clear to auscultation bilaterally, no wheezing or rales Cardiovascular: regular rate and rhythm, S1, S2 normal, no murmur or gallop GI: Abdomen: soft, non distended, non-tender. Bowel sounds present, no organomeg itzel Extremities: moves all limbs, no redness or tenderness in the calves or thighs, no edema Genitourinary: no bladder distension Skin: dry, no rashes Neurologic: Awake oriented to place and person Psych: normal mood, affect and insight Lab Review 24-hour labs: Results for orders placed or performed during the hospital encounter of 03/16/20 (from the past 24 hour(s)) CBC AND DIFF Collection Time: 03/25/20 4:48 AM Result Value Ref Range White Blood Cells 10.5 4.5 - 11.0 K/UL RBC 3.76 (L) 4.4 - 5.5 M/UL Hemoglobin 10.7 (L) 13.5 - 16.5 GM/DL Hematocrit 31.2 (L) 40 - 50 % MCV 83.0 80 - 100 FL MCH 28.3 26 - 34 PG MCHC 34.2 32.0 - 36.0 G/DL RDW 14.4 11 - 15 % Platelet Count 520 (H) 150 - 400 K/UL MPV 8.2 7 - 11 FL Neutrophils 67 41 - 77 % Lymphocytes 13 (L) 24 - 44 % Monocytes 13 (H) 4 - 12 % Eosinophils 6 (H) 0 - 5 % Basophils 1 0 - 2 % Absolute Neutrophil Count 7.02 (H) 1.8 - 7.0 K/UL Absolute Lymph Count 1.41 1.0 - 4.8 K/UL Absolute Monocyte Count 1.40 (H) 0 - 0.80 K/UL Absolute Eosinophil Count 0.60 (H) 0 - 0.45 K/UL Absolute Basophil Count 0.10 0 - 0.20 K/UL COMPREHENSIVE METABOLIC PANEL Collection Time: 03/25/20 4:48 AM Result Value Ref Range Sodium 142 137 - 147 MMOL/L Potassium 3.6 3.5 - 5.1 MMOL/L Chloride 109 98 - 110 MMOL/L Glucose 87 70 - 100 MG/DL Blood Urea Nitrogen 27 (H) 7 - 25 MG/DL Creatinine 1.06 0.4 - 1.24 MG/DL Calcium 8.1 (L) 8.5 - 10.6 MG/DL Total Protein 5.4 (L) 6.0 - 8.0 G/DL Total Bilirubin 0.7 0.3 - 1.2 MG/DL Albumin 3.0 (L) 3.5 - 5.0 G/DL Alk Phosphatase 73 25 - 110 U/L AST (SGOT) 22 7 - 40 U/L CO2 24 21 - 30 MMOL/L ALT (SGPT) 29 7 - 56 U/L Anion Gap 9 3 - 12 eGFR Non >60 >60 mL/min eGFR >60 >60 mL/min MAGNESIUM Collection Time: 03/25/20 4:48 AM Result Value Ref Range Magnesium 2.2 1.6 - 2.6 mg/dL Point of Care Testing (Last 24 hours) Glucose: 87 (03/25/20 0448) Radiology and other Diagnostics Review: No pertinent radiology. Jaylene Cloud MD Pager: [phone] * Nel Cosme - 03/25/2020 10:40 AM CDT SPEECH-LANGUAGE PATHOLOGY Follow-up completed this date with RN re: pt's tolerance of current diet. Per RN , pt demonstrating no s/sx of aspiration/penetration with intake at this time. A nticipate pt functioning WFL with least restrictive diet. Of note, pt continuing to demonstrate confusion which, at this time, is attributed to acute encephalop athy/delirium. These sources best addressed with medical intervention/management , however should primary team wish to address this while in current setting, may consider cognitive-communication evaluation. [employer] will otherwise sign-off at this time. RECOMMENDATIONS: Regular/thins. Medications whole with thin liquids. No ongoing ST at this time. Pt discussed with RN. Therapist: Nel Ibanez MA, CCC-[employer] Voalte: [id number] Date: 03/25/2020 * Carie Crouch, PT - 03/25/2020 9:20 AM CDT PHYSICAL THERAPY PROGRESS NOTE Name: David Rice : 1960 Age: 59 y.o. Admission Date: 03/16/2020 LOS: 9 days Mobility Patient Turn/Position: Chair Progressive Mobility Level: Walk in room Distance Walked (feet): 10 ft(x2) Level of Assistance: Assist X1 Assistive Device: Walker Time Tolerated: 0-10 minutes Activity Limited By: Weakness;Patient request to stop Subjective Significant hospital events: PMHx of fibrillation/flutter s/p ablation 05/25/2019, HTN, anxiety, chronic back pain, chronic headaches, chronic nausea, chronic mal aise, hypothyroidism, PE and mesenteric venous thrombosis on anticoagulation wit jennifer Roth PTA who presented from OSH with severe sepsis. He was also diagnosed w ith UTI and pneumonia at OSH. Cardiology consulted for narrow complex tachycardi a during this admission and pt placed on amiodarone. He was extubated on at evening he became agitated with hallucinations. Also had increased O2 require ment. He remains volume overloaded. Mental / Cognitive Status: Alert;Cooperative;Withdrawn Persons Present: Occupational Therapist Pain: Patient has no complaint of pain Pain Interventions: Patient assisted into position of comfort Patient Owned Equipment: None Home Situation: Lives Alone Type of Home: House Entry Stairs: 1-2 Stairs Comments: Patient highly confused and difficulty to direct patient this afternoo n. I Bed Mobility/Transfer Bed Mobility: Supine to Sit: Head of Bed Elevated;Standby Assist Transfer Type: Sit to Stand(bed-->toilet-->chair) Transfer: Assistance Level: Minimal Assist;of 1st person Transfer: Assistive Device: Roller Walker Balance Sitting Balance: Static Sitting Balance;2 UE Support;Minimal Assist Standing Balance: Static Standing Balance;2 UE support;Moderate Assist Gait Gait Distance: 20 feet(10' x2 with seated bathroom break) Gait: Assistance Level: Minimal Assist Gait: Assistive Device: Roller Walker Comments: Instability noted, required cues for safety awareness. Variable step length Assessment/Progress Impaired Mobility Due To: Decreased Strength;Cognitive Deficits;Medical Status L imitation;Impaired Balance Assessment/Progress: Should Improve w/ Continued PT Comments: Patient minimally verbal - unable to determine if confused or withdraw n; follows commands. Requires min x1 and cues for safety. Recommend ongoing us e of RW at this time. AM-PAC 6 Clicks Basic Mobility Inpatient Turning from your back to your side while in a flat bed without using bed rails: None Moving from lying on your back to sitting on the side of a flatbed without using bedrails : A Little Moving to and from a bed to a chair (including a wheelchair): A Little Standing up from a chair using your arms (e.g. wheelchair, or bedside chair): A Little To walk in hospital room: A Little Climbing 3-5 steps with a railing: A Lot Raw Score: 18 Standardized (T-scale) Score: 41.05 Basic Mobility CMS 0-100%: 40.47 CMS G Code Modifier for Basic Mobility: CK Goals Goal Formulation: With Patient, Patient Unable to Participate in Goal Setting Time For Goal Achievement: 7 days Patient Will Go Supine To/From Sit: w/ Stand By Assist Patient Will Transfer Bed/Chair: w/ Stand By Assist Patient Will Transfer Sit to Stand: w/ Stand By Assist Patient Will Ambulate: 31-50 Feet, w/ Walker, w/ Stand By Assist Plan Treatment Interventions: Mobility Training;Strengthening;Balance Activities Plan Frequency: 5 Days per Week PT Plan for Next Visit: Bed mobility from flat, progress gait distance. Trial s tairs if pt hoping to d/c home PT Discharge Recommendations Recommendation: Inpatient setting Patient Currently Requires Physical Assist With: All mobility Patient Currently Requires Equipment: (Ongoing assessment - currently utilizing RW) Therapist: Carie Crouch, PT Date: 03/25/2020 * Amee Adamson - 03/25/2020 9:19 AM CDT OCCUPATIONAL THERAPY PROGRESS NOTE Name: David Rice : 1960 Age: 59 y.o. Admission Date: 03/16/2020 LOS: 9 days Mobility Patient Turn/Position: Chair Progressive Mobility Level: Walk in room Distance Walked (feet): 10 ft(x2) Level of Assistance: Assist X1 Assistive Device: Walker Time Tolerated: 0-10 minutes Activity Limited By: Weakness;Patient request to stop Subjective Pertinent Dx per Physician: PMHx of fibrillation/flutter s/p ablation 05/25/2019, HTN, anxiety, chronic back pain, chronic headaches, chronic nausea, chronic roldan ise, hypothyroidism, PE and mesenteric venous thrombosis on anticoagulation with Ira who presented from OSH with severe sepsis. He was also diagnosed with U TI and pneumonia at OSH. Cardiology consulted for narrow complex tachycardia dur ing this admission and pt placed on amiodarone. He was extubated on 03/20. He gerri ins volume overloaded. Precautions: Falls Pain / Complaints: Patient has no c/o pain Objective Psychosocial Status: Willing and Cooperative to Participate Persons Present: Physical Therapist Home Living Type of Home: House Home Layout: One Level Bathroom Shower / Tub: Tub/Shower Unit Bathroom Toilet: Standard Comment: Notes reflect that he has one stair to enter. Pt [place] Prior Function Level Of [place]: Independent with ADLs and functional transfers;Independen t with homemaking w/ ambulation Lives With: Alone Receives Help From: None Needed Other Function Comments: Lives with his two greyhounds. ADL's Where Assessed: Edge of Bed;In Bathroom Eating Assist: Independent LE Dressing Assist: Maximum Assist LE Dressing Deficits: Don/Doff R Sock;Don/Doff L Sock Toileting Assist: Stand By Assist Toileting Deficits: Increased Time To Complete Comment: Attempted to have patient don socks to which he replied, "I don't need them." Would not attempt to don. Required maximum assist as patient used hands t o lift leg. ADL Mobility Bed Mobility: Supine to Sit: Standby assist Transfer Type: Sit to stand Transfer: Assistance Level: From;Bed;Minimal assist Transfer: Assistive Device: Roller walker Transfer: Type of Assistance: For balance;For safety considerations;For strength deficit Other Transfer Type: Sit to/from stand Other Transfer: Assistance Level: To/from;Toilet;Minimal assist Other Transfer: Assistive Device: Roller walker Other Transfer: Type of Assistance: For balance;For safety considerations;For st rength deficit End of Activity Status: Up in chair;Nursing notified;Instructed patient to use c all light;Instructed patient to request assist with mobility Gait Distance: 20 feet Gait: Assistance Level: Minimal assist Gait: Assistive Device: Roller walker Cognition Cognition Comment: Flat affect and minimally conversive. Assessment Assessment: Decreased ADL Status;Decreased Safe/Judg during ADL;Decreased Endura nce;Decreased Self-Care Trans;Decreased High-Level ADLs Goal Formulation: Patient Comments: Patient making gradual progress towards improved mobility and function . Patient continues to require physical assistance for ADLs and mobility. Will b enefit from ongoing therapeutic intervention. AM-PAC 6 Clicks Daily Activity Inpatient Putting on and taking off regular lower body clothes?: A Lot Bathing (Including washing, rinsing, drying): A Lot Toileting, which includes using toilet, bedpan, or urinal: A Little Putting on and taking off regular upper body clothing: A Little Taking care of personal grooming such as brushing teeth: A Little Eating meals?: None Daily Activity Raw Score: 17 Standardized (t-scale) score: 37.26 CMS 0-100% Score: 50.11 CMS G Code Modifier: CK Plan Progress: Progressing Toward Goals OT Frequency: 3-5x/week OT Plan for Next Visit: LB dressing. ADL Goals Patient Will Perform Grooming: w/ Minimum Assist;in Chair;at Edge of Bed Patient Will Perform UE Dressing: w/ Moderate Assist Patient Will Perform LE Dressing: w/ Moderate Assist Functional Transfer Goals Pt Will Transfer To Bedside Commode: Met Pt Will Transfer To Toilet: w/ Stand By Assist OT Discharge Recommendations Recommendation: Inpatient setting Patient Currently Requires Physical Assist With: Ambulation;Bathing;Dressing;Jean Claude oming;Stairs;Toileting;Transfers Therapist: Amee Patel OTR/L Date: 03/25/2020 * Jaylene Cloud MD - 03/24/2020 1:53 PM CDT General Progress Note Name: David Rice Today's Date: 03/24/2020 Admission Date: 03/16/2020 LOS: 8 days Assessment/Plan: Principal Problem: E. 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- eEliquis presented from outside hospital with severe sepsis due to UTI and pneumonia,patient was extubated on 03/20/2020,and his hospital course was complicated by ICU delirium Acute encephalopathy/ delirium, waxing and waning course, mild confused today, a void sedating medication will henny robitussin AC, continue seroquel Acute respiratory failure with hypoxemia and hypercarbia, improved Secondary to fluid overload- bilateral pleural effusion and lower lobe consolida tion, with diuresis Oxygen requirement improved improved with IV diuresis,monitor daily I/Oand urine output Severe sepsis, resolved, due to UTI and gram-negative mica pneumonia,improving Patient was treated with broad-spectrum antibioticsivvancomycin and Zosyn, now de-escalated to IV Zosyn completed on 03/23/2020.Reviewed notes reportedly patient urine cultures are positive for E. coli and blood cultures done on 03/12 grew staph hemolyticus OSH,MRSA swab was negativeOSH History of PAF, episodes recurrent narrow complex tachycardia Patient was treated with IV metoprolol and IV amiodarone loading per cardiology recommendation Currently on amiodarone 400 mg p.o. daily, Cardizem CD 120 mg daily,continue E liquis for stroke prevention.continue po lasix 20mg bid for leg and scrotal ed [place], apply jock strap for support, jenise rn Type II NSTEMI, history of nonobstructive CAD, complained about cp last night, E KG with no ischemic changes, mildly elevated trop, if cp is recurrent will [facility] cardiology Troponin was mildly elevated without a significant peak likely fromwall stress and tachycardia setting of sepsis, echo 03/18-preserved EF 60% with no regional wall motion abnormalities, no hemodynamically significant valvular disease,per charting patient had left heart catheterization 01/05/2019 which showed minimal coronary artery disease/nonocclusive disease Acute renal injurydue to sepsis, resolved Serum creatinine had improved and returned to baseline Essential hypertension,today hisblood pressure is at goal, 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 male. Patient is seen and examined at bedside, he ap pears mildly confused today, complains about poor sleep and lack of appetite, he is unsure whats bothering him Medications Scheduled Meds:amiodarone (CORDARONE) tablet 400 mg, 400 mg, Oral, QDAY apixaban (ELIQUIS) tablet 5 mg, 5 mg, Oral, BID atorvastatin (LIPITOR) tablet 40 mg, 40 mg, Oral, QDAY dilTIAZem CD (cardIZEM CD) capsule 120 mg, 120 mg, Oral, QDAY famotidine (PEPCID) tablet 20 mg, 20 mg, Oral, BID furosemide (LASIX) tablet 20 mg, 20 mg, Oral, BID(-) levothyroxine (SYNTHROID) tablet 50 mcg, 50 mcg, Oral, QDAY() potassium chloride SR (K-DUR) tablet 40 mEq, 40 mEq, Oral, QDAY w/breakfast QUEtiapine (SEROquel) tablet 50 mg, 50 mg, Per NG tube, QHS senna (SENOKOT) tablet 1 tablet, 1 tablet, Oral, BID Continuous Infusions: PRN and Respiratory Meds:codeine/guaiFENesin Q6H PRN, eucalyptus-menthol Q2H PRN , oxyCODONE Q6H PRN, polyethylene glycol 3350 QDAY PRN Review of Systems: All other systems reviewed and are negative. Objective: Vital Signs: Last Filed Vital Signs: 24 Vic r Range BP: 124/67 (03/24 717) Temp: 37.4 C (99.4 F) (03/24 717) Pulse: 85 (03/24 717) Respirations: 16 PER MINUTE (03/24 717) SpO2: 97 % (03/24 717) BP: (106-143)/(51-80) Temp: [36.8 C (98.2 F)-37.4 C (99.4 F)] Pulse: [85-97] Respirations: [16 PER MINUTE-19 PER MINUTE] SpO2: [92 %-97 %] Vitals: 03/18/20 0727 03/20/20 0200 03/23/20 0314 Weight: 127.5 kg (281 lb) 112.6 kg (248 lb 3.8 oz) 108.2 kg (238 lb 8.6 oz) Intake/Output Summary: (Last 24 hours) Intake/Output Summary (Last 24 hours) at 03/24/2020 1353 Last data filed at 03/24/2020 0732 Gross per 24 hour Intake 220 ml Output 2450 ml Net -2230 ml Stool Occurrence: 0 Physical Exam General appearance:cooperative and no distress Respiratory: clear to auscultation bilaterally, no wheezing or rales Cardiovascular: regular rate and rhythm, S1, S2 normal, no murmur or gallop GI: Abdomen: soft, non distended, non-tender. Bowel sounds present, no organomeg itzel Extremities: moves all limbs, mild 1+ leg edema Genitourinary: no bladder distension, scrotal and penile edema, Skin: dry, no rashes Neurologic: awake, confused, oriented to place and person Psych: normal mood, affect and insight Lab Review 24-hour labs: Results for orders placed or performed during the hospital encounter of 03/16/20 (from the past 24 hour(s)) TROPONIN-I Collection Time: 03/24/20 12:40 AM Result Value Ref Range Troponin-I 0.14 (H) 0.0 - 0.05 NG/ML CBC AND DIFF Collection Time: 03/24/20 4:00 AM Result Value Ref Range White Blood Cells 12.6 (H) 4.5 - 11.0 K/UL RBC 3.83 (L) 4.4 - 5.5 M/UL Hemoglobin 10.8 (L) 13.5 - 16.5 GM/DL Hematocrit 31.6 (L) 40 - 50 % MCV 82.6 80 - 100 FL MCH 28.2 26 - 34 PG MCHC 34.2 32.0 - 36.0 G/DL RDW 14.5 11 - 15 % Platelet Count 480 (H) 150 - 400 K/UL MPV 8.6 7 - 11 FL Neutrophils 72 41 - 77 % Lymphocytes 10 (L) 24 - 44 % Monocytes 15 (H) 4 - 12 % Eosinophils 3 0 - 5 % Basophils 0 0 - 2 % Absolute Neutrophil Count 9.10 (H) 1.8 - 7.0 K/UL Absolute Lymph Count 1.20 1.0 - 4.8 K/UL Absolute Monocyte Count 1.90 (H) 0 - 0.80 K/UL Absolute Eosinophil Count 0.40 0 - 0.45 K/UL Absolute Basophil Count 0.10 0 - 0.20 K/UL COMPREHENSIVE METABOLIC PANEL Collection Time: 03/24/20 4:00 AM Result Value Ref Range Sodium 142 137 - 147 MMOL/L Potassium 3.6 3.5 - 5.1 MMOL/L Chloride 111 (H) 98 - 110 MMOL/L Glucose 78 70 - 100 MG/DL Blood Urea Nitrogen 31 (H) 7 - 25 MG/DL Creatinine 1.04 0.4 - 1.24 MG/DL Calcium 7.9 (L) 8.5 - 10.6 MG/DL Total Protein 5.4 (L) 6.0 - 8.0 G/DL Total Bilirubin 0.7 0.3 - 1.2 MG/DL Albumin 2.9 (L) 3.5 - 5.0 G/DL Alk Phosphatase 71 25 - 110 U/L AST (SGOT) 21 7 - 40 U/L CO2 23 21 - 30 MMOL/L ALT (SGPT) 29 7 - 56 U/L Anion Gap 8 3 - 12 eGFR Non >60 >60 mL/min eGFR >60 >60 mL/min MAGNESIUM Collection Time: 03/24/20 4:00 AM Result Value Ref Range Magnesium 2.2 1.6 - 2.6 mg/dL Point of Care Testing (Last 24 hours) Glucose: 78 (03/24/20 0400) Radiology and other Diagnostics Review: EKG Reviewed Jaylene Cloud MD Pager: [phone] * Zahira Ohara RN - 03/24/2020 7:00 AM CDT Pt heart rate in the 110-120 range starting at 0645, reaching 151, mostly when p atient is coughing. Patient asymptomatic. notified. * Zahira Ohara RN - 03/24/2020 12:[address] Vasquez OK to give 2100 meds now. Patient wishes to take 2100 meds now. * Zahira Ohara RN - 03/23/2020 9:26 PM CDT 2120: RN entered room to pass medications and assess patient. Patient made a comment [place] when this RN ask ed where he was right now. Then, patient did not answer any other orientation qu estions or elaborate. Patient refused this RN to assess patient. At 1900 patient oriented to person. Patient refused all 2100 medications-- patient educated on the importance of the medications-- espeically amiodarone, eliquis, and IV antibiotic. This RN asked multiple times for the patient to take medications, patient continued to refuse. Pt stated he had headache, did not want any medication for headache, just wanted to sleep. Dr. Vasquez notifed at 2131, no further orders 2220 Per another RN, patient would like to talk to doctor about DNAR status. Dr. Vasquez notified. MD notified of patient having chest pain, pt states he feels pressure on his bhavani st. Patient did not elaborate on any other symptoms. Dr. Vasquez notified Orders for EKG, troponin. 0030 Patient allowed RN to assess pt, and give meds. Pt states his chest only hurts w hen he coughs. 0400 patient cooperative for rest of shift. Calmly resting in bed. * Jaylene Cloud MD - 03/23/2020 11:39 AM CDT General Progress Note Name: David Rice Today's Date: 03/23/2020 Admission Date: 03/16/2020 LOS: 7 days Assessment/Plan: Principal Problem: E. 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- eEliquis presented from outside hospital with severe sepsis due to UTI and pneumonia, patient was extubated on 03/20/2020, and his hospital course was c omplicated by ICU delirium Acute encephalopathy/ delirium, resolved Acute respiratory failure with hypoxemia and hypercarbia, improved Secondary to fluid overload- bilateral pleural effusion and lower lobe consolida tion, with diuresis Oxygen requirement improved improved with IV diuresis, monitor daily I/O and ur ine output Severe sepsis due to suspected UTI and gram-negative mica pneumonia, improving Patient was treated with broad-spectrum antibiotics iv vancomycin and Zosyn, now de-escalated to IV Zosyn stop date 03/23/2020. Reviewed notes reportedly patient urine cultures are positive for E. coli and blood cultures done on 03/[address] aph hemolyticus OSH, MRSA swab was negative OSH History of PAF, episodes recurrent narrow complex tachycardia Patient was treated with IV metoprolol and IV amiodarone loading per cardiology recommendation Currently on amiodarone 400 mg p.o. daily, Cardizem CD 120 mg daily, continue El iquis for stroke prevention. ordered another dose of iv lasix 40mg once today, s tart po lasix 20mg bid from tomorrow Type II NSTEMI, history of nonobstructive CAD Troponin was mildly elevated without a significant peak likely from wall stress and tachycardia setting of sepsis, echo 03/18-preserved EF 60% with no regional w all motion abnormalities, no hemodynamically significant valvular disease, per ronal [place]ral patient had left heart catheterization 01/05/2019 which showed minimal co ronary artery disease/nonocclusive disease Acute renal injury due to sepsis, resolved Serum creatinine had improved and returned to baseline Essential hypertension, today his blood pressure is at goal, lisinopril was held because of STEPH, once iv diuresis is completed and bp allow will resume lisinopril History of pulmonary embolism, mesenteric vein thrombosis Continue Eliquis Chronic lower back pain, physical debility 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 male. Patient is seen and examined at bedside, no ne w complaints he expressed frustration about lack of food choices with cardiac di et, he declined to eat breakfast. Nasal cannula O2 is discontinued during my vis it Medications Scheduled Meds:amiodarone (CORDARONE) tablet 400 mg, 400 mg, Oral, QDAY apixaban (ELIQUIS) tablet 5 mg, 5 mg, Oral, BID atorvastatin (LIPITOR) tablet 40 mg, 40 mg, Oral, QDAY dilTIAZem CD (cardIZEM CD) capsule 120 mg, 120 mg, Oral, QDAY famotidine (PEPCID) tablet 20 mg, 20 mg, Oral, BID [START ON 03/24/2020] furosemide (LASIX) tablet 20 mg, 20 mg, Oral, BID(-) levothyroxine (SYNTHROID) tablet 50 mcg, 50 mcg, Oral, QDAY() piperacillin/tazobactam (ZOSYN) 3.375 g in sodium chloride 0.9% (NS) 100 mL IVPB (MB+), 3.375 g, Intravenous, Q6H* QUEtiapine (SEROquel) tablet 50 mg, 50 mg, Per NG tube, QHS senna (SENOKOT) tablet 1 tablet, 1 tablet, Oral, BID Continuous Infusions: PRN and Respiratory Meds:oxyCODONE Q6H PRN, polyethylene glycol 3350 QDAY PRN Review of Systems: All other systems reviewed and are negative. Objective: Vital Signs: Last Filed Vital Signs: 24 Vic r Range BP: 125/72 (03/23 1108) Temp: 36.7 C (98.1 F) (03/23 1108) Pulse: 85 (03/23 1108) Respirations: 16 PER MINUTE (03/23 1108) SpO2: 94 % (07/04 1108) SpO2 Pulse: 82 (03/22 1200) BP: (120-138)/(68-78) Temp: [36.4 C (97.5 F)-37.1 C (98.8 F)] Pulse: [80-95] Respirations: [14 PER MINUTE-18 PER MINUTE] SpO2: [92 %-95 %] Intensity Pain Scale (Self Report): 4 (03/22/20 1200) Vitals: 03/18/20 0727 03/20/20 0200 03/23/20 0314 Weight: 127.5 kg (281 lb) 112.6 kg (248 lb 3.8 oz) 108.2 kg (238 lb 8.6 oz) Intake/Output Summary: (Last 24 hours) Intake/Output Summary (Last 24 hours) at 03/23/2020 1139 Last data filed at 03/23/2020 0909 Gross per 24 hour Intake 650 ml Output 1440 ml Net -790 ml Stool Occurrence: 0 Physical Exam General appearance: cooperative and no distress Respiratory: clear to auscultation bilaterally, no wheezing or rales Cardiovascular: regular rate and rhythm, S1, S2 normal, no murmur or gallop GI: Abdomen: soft, non distended, non-tender. Bowel sounds present, no organomeg itzel Extremities: moves all limbs, 1+ bilateral pitting pedal edema Genitourinary: no bladder distension Skin: dry, no rashes Neurologic: AAOx4, non focal exam Psych: normal mood, affect and insight Lab Review 24-hour labs: Results for orders placed or performed during the hospital encounter of 03/16/20 (from the past 24 hour(s)) BASIC METABOLIC PANEL Collection Time: 03/22/20 2:10 PM Result Value Ref Range Sodium 142 137 - 147 MMOL/L Potassium 3.7 3.5 - 5.1 MMOL/L Chloride 108 98 - 110 MMOL/L CO2 27 21 - 30 MMOL/L Anion Gap 7 3 - 12 Glucose 91 70 - 100 MG/DL Blood Urea Nitrogen 40 (H) 7 - 25 MG/DL Creatinine 1.11 0.4 - 1.24 MG/DL Calcium 8.0 (L) 8.5 - 10.6 MG/DL eGFR Non >60 >60 mL/min eGFR >60 >60 mL/min MAGNESIUM Collection Time: 03/22/20 2:10 PM Result Value Ref Range Magnesium 2.4 1.6 - 2.6 mg/dL CBC AND DIFF Collection Time: 03/23/20 4:12 AM Result Value Ref Range White Blood Cells 11.9 (H) 4.5 - 11.0 K/UL RBC 4.17 (L) 4.4 - 5.5 M/UL Hemoglobin 11.4 (L) 13.5 - 16.5 GM/DL Hematocrit 34.3 (L) 40 - 50 % MCV 82.3 80 - 100 FL MCH 27.4 26 - 34 PG MCHC 33.3 32.0 - 36.0 G/DL RDW 15.1 (H) 11 - 15 % Platelet Count 473 (H) 150 - 400 K/UL MPV 8.1 7 - 11 FL Neutrophils 66 41 - 77 % Lymphocytes 12 (L) 24 - 44 % Monocytes 17 (H) 4 - 12 % Eosinophils 5 0 - 5 % Basophils 0 0 - 2 % Absolute Neutrophil Count 7.92 (H) 1.8 - 7.0 K/UL Absolute Lymph Count 1.38 1.0 - 4.8 K/UL Absolute Monocyte Count 2.00 (H) 0 - 0.80 K/UL Absolute Eosinophil Count 0.55 (H) 0 - 0.45 K/UL Absolute Basophil Count 0.04 0 - 0.20 K/UL COMPREHENSIVE METABOLIC PANEL Collection Time: 03/23/20 4:12 AM Result Value Ref Range Sodium 142 137 - 147 MMOL/L Potassium 3.5 3.5 - 5.1 MMOL/L Chloride 109 98 - 110 MMOL/L Glucose 109 (H) 70 - 100 MG/DL Blood Urea Nitrogen 38 (H) 7 - 25 MG/DL Creatinine 1.07 0.4 - 1.24 MG/DL Calcium 8.1 (L) 8.5 - 10.6 MG/DL Total Protein 5.5 (L) 6.0 - 8.0 G/DL Total Bilirubin 0.7 0.3 - 1.2 MG/DL Albumin 2.9 (L) 3.5 - 5.0 G/DL Alk Phosphatase 73 25 - 110 U/L AST (SGOT) 26 7 - 40 U/L CO2 24 21 - 30 MMOL/L ALT (SGPT) 30 7 - 56 U/L Anion Gap 9 3 - 12 eGFR Non >60 >60 mL/min eGFR >60 >60 mL/min MAGNESIUM Collection Time: 03/23/20 4:12 AM Result Value Ref Range Magnesium 2.4 1.6 - 2.6 mg/dL Point of Care Testing (Last 24 hours) Glucose: (!) 109 (03/23/20 0412) Radiology and other Diagnostics Review: No pertinent radiology. Jaylene Cloud MD Pager: [phone] * Kathy Martinez RN - 03/22/2020 3:30 PM CDT Patient arrived to room # HC813 via bed transported by patient transport. Patien t transferred to the bed with assistance. Bedside safety checks completed. Initi al patient assessment completed. Refer to flowsheet for details. Admission skin assessment completed with:GORDO Chacon Pressure injury present on arrival?:Y lip 1. Head/Face/Neck: Y lip 2. Trunk/Back:N 3. Upper Extremities:N 4. Lower Extremities:N 5. Pelvic/Coccyx: N 6. Assessed for device associated injury? Y-lip 7. Malnutrition Screening Tool (Nursing Nutrition Assessment) Completed? Y See Doc Flowsheet for additional wound details. INTERVENTIONS: * Liv Polo RN - 03/22/2020 2:52 PM CDT 0725 Assumed care and received SBAR from Allie Ralph RN. Bedside safety check per formed. Patient lethargic and oriented to person, place, and situation; continue s to verbalize hallucinations. No concerns at this time, will review orders and continue to monitor. 0800 Initial assessment complete at this time, see doc flow for details. VSS per terrie ent trend. Plan of care reviewed and patient resting comfortably. Will continue to monitor. 0945 Dr. Whalen and team at bedside, reviewing orders and discussing plan of care. Sarah mariee downgraded to floor status. 1200 Assessment complete, see doc flow sheet for details. VSS per patient trend. Terrie ent lethargic and oriented, reporting some abdominal discomfort. No changes from initial assessment, will continue to monitor. 1430 Sarmiento catheter removed, protocol implemented. 1435 SBAR given to GORDO Stark on HC8; transport placed for patient. Attempted to notify patient's son, Kota, of room transfer, no answer; GORDO Stark notified. * Jaylene Cloud MD - 03/22/2020 1:51 PM CDT General Progress Note Name: David Rice Today's Date: 03/22/2020 Admission Date: 03/16/2020 LOS: 6 days Assessment/Plan: Principal Problem: E. 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- eEliquis presented from outside hospital with severe sepsis due to UTI and pneumonia, patient was extubated on 03/20/2020, and his hospital course was c omplicated by ICU delirium Acute encephalopathy/ delirium, sedation for vent or sepsis related improved with Seroquel, he is coherent and able to hold normal conversation duri ng my visit Provide low stimulation environment and frequent reorientation, avoid tethers Acute respiratory failure with hypoxemia and hypercarbia, improving Secondary to fluid overload, bilateral pleural effusion and lower lobe consolida tion Oxygen needs have improved improved with IV diuresis, currently on 2 L of supple mental oxygen continue attempt to wean to room air, monitor daily I/O and urine output Severe sepsis due to suspected UTI and gram-negative mica pneumonia, improving Patient was treated with broad-spectrum antibiotics iv vancomycin and Zosyn, now de-escalated to IV Zosyn only with an end date 03/23. Reviewed notes reportedly patient urine cultures are positive for E. coli and blood cultures done on 03/12 grew staph hemolyticus OSH, MRSA swab was negative OSH History of PAF, episodes recurrent narrow complex tachycardia Patient was treated with IV metoprolol and IV amiodarone loading per cardiology recommendation Currently on amiodarone 400 mg p.o. daily, Cardizem CD 120 mg daily, continue El iquis for stroke prevention. IV Lasix 40 mg daily based on response and renal f unction Type II NSTEMI, history of nonobstructive CAD Troponin was mildly elevated without a significant peak likely from wall stress and tachycardia setting of sepsis, echo 03/18-preserved EF 60% with no regional w all motion abnormalities, no hemodynamically significant valvular disease, per ronal [place] patient had left heart catheterization 01/05/2019 which showed minimal co ronary artery disease/nonocclusive disease Acute renal injury due to sepsis, resolved Serum creatinine had improved and returned to baseline Essential hypertension, today his blood pressure is at goal, lisinopril was held because of STEPH, we can resume History of pulmonary embolism, mesenteric vein thrombosis Continue Eliquis Chronic lower back pain, physical debility 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 male. Patient is seen and examined at bedside, he is complaining about chronic lower back pain, requesting to resume pain medication, complains about diarrhea and afraid to drink liquids, overall feeling better Medications Scheduled Meds:amiodarone (CORDARONE) tablet 400 mg, 400 mg, Oral, QDAY apixaban (ELIQUIS) tablet 5 mg, 5 mg, Oral, BID atorvastatin (LIPITOR) tablet 40 mg, 40 mg, Oral, QDAY calcium carbonate (TUMS) chew tablet 500-1,000 mg, 500-1,000 mg, Oral, ONCE dilTIAZem CD (cardIZEM CD) capsule 120 mg, 120 mg, Oral, QDAY famotidine (PEPCID) tablet 20 mg, 20 mg, Oral, BID levothyroxine (SYNTHROID) tablet 50 mcg, 50 mcg, Oral, QDAY(07) piperacillin/tazobactam (ZOSYN) 3.375 g in sodium chloride 0.9% (NS) 100 mL IVPB (MB+), 3.375 g, Intravenous, Q6H* QUEtiapine (SEROquel) tablet 50 mg, 50 mg, Per NG tube, QHS senna (SENOKOT) tablet 1 tablet, 1 tablet, Oral, BID Continuous Infusions: PRN and Respiratory Meds:polyethylene glycol 3350 QDAY PRN Review of Systems: All other systems reviewed and are negative. Objective: Vital Signs: Last Filed Vital Signs: 24 Vic r Range BP: 127/76 (03/22 1200) Temp: 37.1 C (98.7 F) (03/22 0800) Pulse: 82 (03/22 1200) Respirations: 18 PER MINUTE (03/22 1200) SpO2: 93 % (03/22 1200) SpO2 Pulse: 82 (03/22 1200) BP: (106-151)/(70-94) Temp: [36.9 C (98.4 F)-37.9 C (100.3 F)] Pulse: [77-101] Respirations: [0 PER MINUTE-23 PER MINUTE] SpO2: [92 %-99 %] Intensity Pain Scale (Self Report): Asleep (03/22/20 1100) Vitals: 03/16/20 1627 03/18/20 0727 03/20/20 0200 Weight: 127.5 kg (281 lb 1.4 oz) 127.5 kg (281 lb) 112.6 kg (248 lb 3.8 oz) Intake/Output Summary: (Last 24 hours) Intake/Output Summary (Last 24 hours) at 03/22/2020 1351 Last data filed at 03/22/2020 1200 Gross per 24 hour Intake 510 ml Output 4898 ml Net -4388 ml Stool Occurrence: 1 Physical Exam General appearance: Normal mental status, cooperative and no distress Respiratory: clear to auscultation bilaterally, no wheezing or rales ant exam Cardiovascular: regular rate and rhythm, S1, S2 normal, no murmur or gallop GI: Abdomen: soft, non distended, non-tender. Bowel sounds present, no organomeg itzel Extremities: moves all limbs, no redness or tenderness in the calves or thighs, no edema Genitourinary: no bladder distension Skin: dry, no rashes Neurologic: AAOx4, non focal exam Psych: normal mood, affect and insight Lab Review 24-hour labs: Results for orders placed or performed during the hospital encounter of 03/16/20 (from the past 24 hour(s)) BASIC METABOLIC PANEL Collection Time: 03/21/20 5:15 PM Result Value Ref Range Sodium 144 137 - 147 MMOL/L Potassium 3.5 3.5 - 5.1 MMOL/L Chloride 108 98 - 110 MMOL/L CO2 26 21 - 30 MMOL/L Anion Gap 10 3 - 12 Glucose 113 (H) 70 - 100 MG/DL Blood Urea Nitrogen 35 (H) 7 - 25 MG/DL Creatinine 1.04 0.4 - 1.24 MG/DL Calcium 8.3 (L) 8.5 - 10.6 MG/DL eGFR Non >60 >60 mL/min eGFR >60 >60 mL/min MAGNESIUM Collection Time: 03/21/20 5:15 PM Result Value Ref Range Magnesium 2.4 1.6 - 2.6 mg/dL CBC AND DIFF Collection Time: 03/22/20 4:00 AM Result Value Ref Range White Blood Cells 13.4 (H) 4.5 - 11.0 K/UL RBC 3.51 (L) 4.4 - 5.5 M/UL Hemoglobin 10.0 (L) 13.5 - 16.5 GM/DL Hematocrit 29.4 (L) 40 - 50 % MCV 83.8 80 - 100 FL MCH 28.5 26 - 34 PG MCHC 34.0 32.0 - 36.0 G/DL RDW 15.0 11 - 15 % Platelet Count 498 (H) 150 - 400 K/UL MPV 8.5 7 - 11 FL Neutrophils 69 41 - 77 % Lymphocytes 10 (L) 24 - 44 % Monocytes 18 (H) 4 - 12 % Eosinophils 3 0 - 5 % Basophils 0 0 - 2 % Absolute Neutrophil Count 9.33 (H) 1.8 - 7.0 K/UL Absolute Lymph Count 1.28 1.0 - 4.8 K/UL Absolute Monocyte Count 2.39 (H) 0 - 0.80 K/UL Absolute Eosinophil Count 0.39 0 - 0.45 K/UL Absolute Basophil Count 0.05 0 - 0.20 K/UL COMPREHENSIVE METABOLIC PANEL Collection Time: 03/22/20 4:00 AM Result Value Ref Range Sodium 145 137 - 147 MMOL/L Potassium 4.0 3.5 - 5.1 MMOL/L Chloride 112 (H) 98 - 110 MMOL/L Glucose 78 70 - 100 MG/DL Blood Urea Nitrogen 35 (H) 7 - 25 MG/DL Creatinine 1.05 0.4 - 1.24 MG/DL Calcium 7.3 (L) 8.5 - 10.6 MG/DL Total Protein 5.0 (L) 6.0 - 8.0 G/DL Total Bilirubin 0.7 0.3 - 1.2 MG/DL Albumin 2.5 (L) 3.5 - 5.0 G/DL Alk Phosphatase 59 25 - 110 U/L AST (SGOT) 34 7 - 40 U/L CO2 27 21 - 30 MMOL/L ALT (SGPT) 27 7 - 56 U/L Anion Gap 6 3 - 12 eGFR Non >60 >60 mL/min eGFR >60 >60 mL/min MAGNESIUM Collection Time: 03/22/20 4:00 AM Result Value Ref Range Magnesium 2.3 1.6 - 2.6 mg/dL BASIC METABOLIC PANEL Collection Time: 03/22/20 7:55 AM Result Value Ref Range Sodium 144 137 - 147 MMOL/L Potassium 4.3 3.5 - 5.1 MMOL/L Chloride 111 (H) 98 - 110 MMOL/L CO2 26 21 - 30 MMOL/L Anion Gap 7 3 - 12 Glucose 86 70 - 100 MG/DL Blood Urea Nitrogen 39 (H) 7 - 25 MG/DL Creatinine 0.98 0.4 - 1.24 MG/DL Calcium 8.1 (L) 8.5 - 10.6 MG/DL eGFR Non >60 >60 mL/min eGFR >60 >60 mL/min MAGNESIUM Collection Time: 03/22/20 7:55 AM Result Value Ref Range Magnesium 2.5 1.6 - 2.6 mg/dL BASIC METABOLIC PANEL Collection Time: 03/22/20 2:10 PM Result Value Ref Range Sodium 142 137 - 147 MMOL/L Potassium 3.7 3.5 - 5.1 MMOL/L Chloride 108 98 - 110 MMOL/L CO2 27 21 - 30 MMOL/L Anion Gap 7 3 - 12 Glucose 91 70 - 100 MG/DL Blood Urea Nitrogen 40 (H) 7 - 25 MG/DL Creatinine 1.11 0.4 - 1.24 MG/DL Calcium 8.0 (L) 8.5 - 10.6 MG/DL eGFR Non >60 >60 mL/min eGFR >60 >60 mL/min MAGNESIUM Collection Time: 03/22/20 2:10 PM Result Value Ref Range Magnesium 2.4 1.6 - 2.6 mg/dL Point of Care Testing (Last 24 hours) Glucose: 86 (03/22/20 0755) Radiology and other Diagnostics Review: No pertinent radiology. Jaylene Cloud MD Pager: [phone] * Nikolai Whalen MD - 03/22/2020 11:51 AM CDT MICU Progress Note Name: David Rice Today's Date: 03/22/2020 Admission Date: 03/16/2020 LOS: 6 days Assessment/Plan: Principal Problem: E. coli sepsis (HCC) Active Problems: Septic shock (HCC) 59 y.o. male with a PMHx of fibrillation/flutters/p ablation05/25/2019, HTN, a nxiety, chronic back pain,chronic headaches,chronic nausea, chronic malaise, hypothyroidism, PE and mesenteric venous thrombosis on anticoagulation with El iquis PTAwho presentedfrom OSH with severe sepsis. He was also diagnosed wit h UTI and pneumonia at OSH. Cardiology consulted for narrow complex tachycardia during this admission and pt placed on amiodarone. He was extubated on 03/20. Post extubation course has been complicated by ICU delirium. We are continuing diure sis for volume overload status Neuro/psych: Sedation for Intubation (resolved) - 03/20 extubated, propofol d/c'ed Acute encephalopathy - Differential includes most likely ICU delirium with waxing/waning course vs se psis vs underlying psychiatric disorder Plan - Patient slept well last night after receiving 25mg of Seroquel at approx 1700 and another 50mg at bedtime. 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 - CXR with improved aeration of the lung bases, continued small-moderate b/l ple ural effusions - 03/20 extubated Plan - Continue diuresis as discuss elsewhere - incentive spirometry q4h as mental status allows CV: Paroxysmal Atrial Fibrillation Recurrent Narrow Complex Tachycardia\\ Volume Overload Status - Follows with Dr. Rodriguez - s/p Ablation - CHADSVASC: 1 - ALUMINUM BOAT INSPECTOR on a/c with Eliquis due to previous thrombosis - AARD: amiodarone taper. Previously on tikosyn - SR on admission - 03/18: multiple episodes of narrow complex tachycardia. Appears a-fib RVR and a flutter; Received metoprolol pushes, amiodarone IV bolus. Per cardiology restar cosme on amiodarone gtt - TTE 03/18: LVEF 60%, normal diastolic function, CVP 10 mmHg, atrial size normal - 03/19: sustained narrow complex tachycardia overnight with rates 140-150 Plan - Volume overload status may be related to decreased cardiac output secondary to recurrent tachycarrhythmias - Cardiology following appreciate recommendations. - Continue Apixaban, Amiodarone 400mg PO daily - Start Diltiazem CD 120mg daily this AM - Continue diuresis, Lasix 40mg IV given today - BMP + Mg BID with above diuresis and robust UOP - Replete lytes to keep K > 4 and Mg > 2 - Cardiac diet, 1.5L volume restriction - Strict I's and O's, daily weights NSTEMI, suspect type 2 (resolved) Nonobstructive CAD - trop 0.105 - > 0.17 at OSH - suspect due to demand of sepsis - 01/05/19:Cardiac Catheterization after abnormal stress test at OSH showed min imal coronary artery disease - 2D echo 01/18/20 -Left Ventriclewith mild concentric hypertrophy.LVEF 60% - TTE 03/18: LVEF 60%, normal diastolic function, CVP 10 mmHg, atrial size normal - trop 03/20 0.22 -> 0.32 -> 0.72 Plan - Troponin peaked at 0.72. No need for further trend Hx of PE Hx of Mesenteric Venous Thrombosis - anticoagulation as above HLD - Continue barge captain atorvastatin 40 mg qd Essential HTN -Currently holding ALUMINUM BOAT INSPECTOR Lisinopril 10mg daily during diuresis to avoid potential STEPH. Patient may benefit from MARLEY-I once euvolemic due to mild degree of protei everett. GI: GERD - Continue famotidine Nutrition -Cardiac diet Bowel Regimen - Sennakot, miralax - Tube feeds per regulatory consultant /Renal: Lactic Acidosis -resolved - 5.08 -> 1.66 at OSH STEPH (Resolved) - OSH Cr 1.6 -> 1.0 - Cr 0.97 on admission Volume Overload - continue diuresis as discussed elsewhere Endo: Hypothyroidism - barge captain levothyroxine 50 mcg daily ID: Severe Sepsis- resolved UTI Pneumonia, suspected bacterial - Started on Rocephin then broadened to Vancomycin and zosyn - U/A c/w UTI at OSH - UCx (OSH 03/11): E. Coli - BCx (OSH 03/12): Staph haemoylticus 1/4 bottles x 2 - OSH MRSA swab negative - CT a/p 03/16: moderate abdominopelvic ascites and body wall edema. Nonspecific mesenteric panniculitis. Moderate-severe left colonic diverticulosis - CT chest 03/16: see above - Procal: 0.44 - BCx: 1/4 bottles - staph. 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 urinne specimens appropriately Note: Sarmiento care performed. Problem: VTE, Risk of Goal: Absence of venous thrombosis Outcome: Goal Ongoing Flowsheets (Taken 03/18/2020 0252 by Allie Ralph, RN) Absence of venous thrombosis: Assess peripheral circulation Assess for signs and symptoms of venous thrombosis Utilize prevent measures Problem: Self-Care Deficit Goal: Maximize Heart Failure Knowledge Outcome: Goal Ongoing Goal: Maximize Heart Failure Attitudes Outcome: Goal Ongoing Goal: Maximize Heart Failure Behaviors Outcome: Goal Ongoing Problem: Nutrition Deficit Goal: Adequate nutritional intake Outcome: Goal Ongoing Flowsheets (Taken 03/22/2020 0533 by Allie Ralph RN) Adequate nutritional intake: Assess dietary preferences Promote oral fluid intake Assess nutritional status Problem: Falls, High Risk of Goal: Absence of falls-Adult Patient Outcome: Goal Ongoing Flowsheets (Taken 03/22/2020 0533 by Allie Ralph, RN) Absence of falls-Adult Patient: Complete Fall Risk Assessment. Provde safe environment. Implement fall risk bundle. Consider additional interventions if patient is confused, has gait/balance prob lems and on high risk medications. Provide fall prevention strategies. Note: Fall bundle in place. Problem: Aspiration, Risk of Goal: Tolerates oral intake Outcome: Goal Ongoing Goal: Absence of aspiration Outcome: Goal Ongoing Problem: Self-Care Deficit Goal: Maximize ADL functioning Outcome: Goal Ongoing Problem: Mobility/Activity Intolerance Goal: Maximize functional ADL's and mobility outcomes Outcome: Goal Ongoing Flowsheets (Taken 03/22/2020 0621 by Allie Ralph RN) Maximize functional ADLs and mobility outcomes: Administer oxygen to maintain SpO2 at approprate levels Manage environmental safety Maintain body position Problem: Injury-Risk of, Non-Violent Physical Restraints Goal: Absence of Injury while physically restrained (Non-Violent) Outcome: Goal Achieved Problem: Falls, High Risk of Goal: Absence of Falls-Pediatric patient Outcome: Goal Achieved * Care Plan - Allie Ralph RN - 03/22/2020 6:21 AM CDT Problem: Discharge Planning Goal: Participation in plan of care Outcome: Goal Ongoing Flowsheets (Taken 03/22/2020 0533) Participation in Plan of Care: Involve patient/caregiver in care planning decisi on making Goal: Knowledge regarding plan of care Outcome: Goal Ongoing Goal: Prepared for discharge Outcome: Goal Ongoing Problem: Injury-Risk of, Non-Violent Physical Restraints Goal: Absence of Injury while physically restrained (Non-Violent) 03/22/2020 0621 by Allie Ralph RN Outcome: Goal Ongoing Flowsheets (Taken 03/16/2020 2310) Absence of injury while physically restrained - non-violent: Alternatives considered or attempted before application of non-violent restrain ts Monitor/document for non-violent patients 03/22/2020 0526 by Allie Ralph RN Reactivated Problem: Skin Integrity Goal: Skin integrity intact Outcome: Goal Ongoing Flowsheets (Taken 03/16/2020 2310) Skin integrity intact: Assess nutrition Assure position change Monitor skin integrity Reduce skin shear, friction and tissue load Provide skin care interventions Provide incontinence management interventions Goal: Healing of skin (Wound & Incision) Outcome: Goal Ongoing Flowsheets (Taken 03/18/2020 0252) Healing of wound (wounds and Incisions): Assess for signs and symptoms of wound infection Goal: Healing of skin (Pressure Injury) Outcome: Goal Ongoing Flowsheets (Taken 03/22/2020 0533) Healing of skin (Pressure Injury): Assess for signs and symptoms of pressure injury infection Assess pressure injury Implement pressure injury care as ordered Problem: Infection, Risk of, Urinary Catheter-Associated Urinary Tract Infection Goal: Absence of urinary catheter-associated infection Outcome: Goal Ongoing Flowsheets (Taken 03/16/2020 2310) Absence of urinary catheter-associated infections: Manage urinary catheter Assess for signs and sypmtoms of catheter-associated urinary tract infection Collect urinne specimens appropriately Problem: VTE, Risk of Goal: Absence of venous thrombosis Outcome: Goal Ongoing Flowsheets (Taken 03/18/2020 0252) Absence of venous thrombosis: Assess peripheral circulation Assess for signs and symptoms of venous thrombosis Utilize prevent measures Problem: Self-Care Deficit Goal: Maximize Heart Failure Knowledge Outcome: Goal Ongoing Goal: Maximize Heart Failure Attitudes Outcome: Goal Ongoing Goal: Maximize Heart Failure Behaviors Outcome: Goal Ongoing Problem: Nutrition Deficit Goal: Adequate nutritional intake Outcome: Goal Ongoing Flowsheets (Taken 03/22/2020 05) Adequate nutritional intake: Assess dietary preferences Promote oral fluid intake Assess nutritional status Problem: Falls, High Risk of Goal: Absence of falls-Adult Patient Outcome: Goal Ongoing Flowsheets (Taken 03/22/2020 05) Absence of falls-Adult Patient: Complete Fall Risk Assessment. Provde safe environment. Implement fall risk bundle. Consider additional interventions if patient is confused, has gait/balance prob lems and on high risk medications. Provide fall prevention strategies. Problem: Aspiration, Risk of Goal: Tolerates oral intake Outcome: Goal Ongoing Flowsheets (Taken 03/22/2020532) Tolerates Oral Intake: Manage oral intake Goal: Absence of aspiration Outcome: Goal Ongoing Flowsheets (Taken 03/22/2020 05) Absence of aspiration: Assess for signs and symptoms of aspiration Assess cough ability Assess gag reflex Elevate head of bed Problem: Self-Care Deficit Goal: Maximize ADL functioning Outcome: Goal Ongoing Problem: Mobility/Activity Intolerance Goal: Maximize functional ADL's and mobility outcomes Outcome: Goal Ongoing Flowsheets (Taken 03/22/2020 0621) Maximize functional ADLs and mobility outcomes: Administer oxygen to maintain SpO2 at approprate levels Manage environmental safety Maintain body position * Care Plan - Anni Gonzales RD - 03/21/2020 2:03 PM CDT Problem: Nutrition Deficit Goal: Adequate nutritional intake Outcome: Goal Ongoing Extubated 03/20, TF stopped. WELDER EXPLOSION following, advanced to cardiac/soft diet with 1. 5L fluid restriction this am. Pt reports poor appetite so far, ate only a few bi bud of mashed potatoes with gravy and chicken for lunch today -- encouraged incr eased intakes. Will send Boost HP once daily to assist with meeting needs. Anni Gonzales, MS, RD, LD, CNSC Available on Voalte * Care Plan - Vero Tejada RN - 03/20/2020 5:00 AM CDT Problem: Discharge Planning Goal: Participation in plan of care Outcome: Goal Ongoing Goal: Knowledge regarding plan of care Outcome: Goal Ongoing Goal: Prepared for discharge Outcome: Goal Ongoing Problem: Injury-Risk of, Non-Violent Physical Restraints Goal: Absence of Injury while physically restrained (Non-Violent) Outcome: Goal Ongoing Problem: Skin Integrity Goal: Skin integrity intact Outcome: Goal Ongoing Goal: Healing of skin (Wound & Incision) Outcome: Goal Ongoing Goal: Healing of skin (Pressure Injury) Outcome: Goal Ongoing Problem: Infection, Risk of, Urinary Catheter-Associated Urinary Tract Infection Goal: Absence of urinary catheter-associated infection Outcome: Goal Ongoing Problem: Respiratory Impairment (Ventilated Patients) Goal: Normal spontaneous ventilation Outcome: Goal Ongoing Goal: Absence of pulmonary infection (Adult only) Outcome: Goal Ongoing Problem: VTE, Risk of Goal: Absence of venous thrombosis Outcome: Goal Ongoing Problem: Self-Care Deficit Goal: Maximize Heart Failure Knowledge Outcome: Goal Ongoing Goal: Maximize Heart Failure Attitudes Outcome: Goal Ongoing Goal: Maximize Heart Failure Behaviors Outcome: Goal Ongoing Problem: Nutrition Deficit Goal: Adequate nutritional intake Outcome: Goal Ongoing Problem: Falls, High Risk of Goal: Absence of falls-Adult Patient Outcome: Goal Ongoing Goal: Absence of Falls-Pediatric patient Outcome: Goal Ongoing * Case Mgmt DC Plan - Johanny Almaguer RN - 03/18/2020 3:32 PM CDT Case Management Admission Assessment NAME:David Rice :[birth year] AGE: 59 y.o. ADMISSION DATE: 03/16/2020 DAYS ADMITTED: LOS: 2 days Todays Date: 03/18/2020 Source of Information: EMR review from admission 02/20/20, confirmed no changes ann Escudero, patient's Son. Plan Plan: Case Management Assessment, Assist PRN with SW/NCM Services, Discharge Omega nning for Home Anticipated Infectious work up Wean from vent as tolerated. Consult Cardiology Consult PT/OT DC planning on going Patient lives at home alone and was independent with ADLs prior to admission. Patient uses [employer] for cooking , shopping, cleaning, and laundry. Patient uses Medicaid transportation. Will continue to follow for CM needs. [facility] [address] [place] [address] (home) Emergency Contact Extended Emergency Contact Information Primary Emergency Contact: Kota Rice Address: [place] [address] Mobile Relation: Son Secondary Emergency Contact: Onur Rice Mobile Relation: Son Window Caser needed? No Healthcare Directive Transportation Does the patient need discharge transport arranged?: Yes Transportation Name, Phone and Availability #1: [email or web address] Does the patient use Medicaid Transportation?: Yes Expected Discharge Date Expected Discharge Date: 03/25/20 Living Situation Prior to Admission ? Living Arrangements Type of Residence: Home, with Home Health or other assistance Living Arrangements: Alone Bathroom Shower / Tub: Tub/Shower Unit How many levels in the residence?: 1 Can patient live on one level if needed?: N/A Does residence have entry and/or side stairs?: Yes(1) Assistance needed prior to admit or anticipated on discharge: Yes Who provides assistance or could if needed?: [employer] Are they in good health?: Yes Can support system provide 24/7 care if needed?: No ? Level of Function Prior level of function: Needs assist with ADLs Which ADLs require assistance?: Shopping, Cooking, Cleaning, Laundry Who assists with ADLs?: [employer] ? Cognitive Abilities Cognitive Abilities: Unable to Assess Financial Resources ? Coverage Primary Insurance: Medicaid Additional Coverage: RX ? Source of Income Source Of Income: SSDI ? Financial Assistance Needed? Psychosocial Needs ? Mental Health Mental Health History: No ? Substance Use History ? Other Current/Previous Services ? PCP [place] [facility], None, None ? Pharmacy [address] [address] ? Durable Medical Equipment Durable Medical Equipment at home: (none) ? Home Health Receiving home health: No ? Hemodialysis or Peritoneal Dialysis Undergoing hemodialysis or peritoneal dialysis: No ? Tube/Enteral Feeds Receive tube/enteral feeds: No ? Infusion Receive infusions: No ? Private Duty Private duty help used: No ? Home and Community Based Services Home and community based services: Yes HC[employer] assistance hours/week: 4hours/week ? Lev Escalera: N/A ? Hospice Hospice: No ? Outpatient Therapy PT: No OT: No WELDER EXPLOSION: No ? Fpc Facility/Fdc SNF: No NH: No ? Inpatient Rehab IPR: No ? Long-Term Acute Care Hospital LTACH: No ? Acute Hospital Stay Acute Hospital Stay: Yes Was patient's stay within the last 30 days?: Yes Name of Hospital: [facility] When did patient receive care?: 02/20/20 to 02/23/20 Readmission Code Group: 9. Unrelated Readmision Johanny Almaguer RN, BSN Nurse Associate Manager [employer] [phone] or [phone] * Care Plan - Allie Ralph RN - 03/18/2020 2:56 AM CDT Problem: Discharge Planning Goal: Participation in plan of care Outcome: Goal Ongoing Goal: Knowledge regarding plan of care Outcome: Goal Ongoing Goal: Prepared for discharge Outcome: Goal Ongoing Problem: Injury-Risk of, Non-Violent Physical Restraints Goal: Absence of Injury while physically restrained (Non-Violent) Outcome: Goal Ongoing Flowsheets (Taken 03/16/2020 2310) Absence of injury while physically restrained - non-violent: Alternatives considered or attempted before application of non-violent restrain ts Monitor/document for non-violent patients Problem: Skin Integrity Goal: Skin integrity intact Outcome: Goal Ongoing Flowsheets (Taken 03/16/20200) Skin integrity intact: Assess nutrition Assure position change Monitor skin integrity Reduce skin shear, friction and tissue load Provide skin care interventions Provide incontinence management interventions Goal: Healing of skin (Wound & Incision) Outcome: Goal Ongoing Flowsheets (Taken 03/18/2020 0252) Healing of wound (wounds and Incisions): Assess for signs and symptoms of wound infection Goal: Healing of skin (Pressure Injury) Outcome: Goal Ongoing Problem: Infection, Risk of, Central Venous Catheter-Associated Bloodstream Infe ction Goal: Absence of CVC Associated Bloodstream infection Outcome: Goal Ongoing Flowsheets (Taken 03/16/20200) Absence of CVC associated bloodstream infection: Assess for central line catheter infection (Monitor SIRS criteria) Manage central venous catheter Follow central line bundle components Problem: Infection, Risk of, Urinary Catheter-Associated Urinary Tract Infection Goal: Absence of urinary catheter-associated infection Outcome: Goal Ongoing Flowsheets (Taken 03/16/2020 2310) Absence of urinary catheter-associated infections: Manage urinary catheter Assess for signs and sypmtoms of catheter-associated urinary tract infection Collect urinne specimens appropriately Problem: Respiratory Impairment (Ventilated Patients) Goal: Normal spontaneous ventilation Outcome: Goal Ongoing Flowsheets (Taken 03/16/2020 2310) Normal Spontaneous Ventilation: Assess mechanical ventilation Assess mechanical ventilation weaning readiness Provide mechanical ventilation managment Manage endotracheal/tracheal tube Provide oral hygiene Goal: Absence of pulmonary infection (Adult only) Outcome: Goal Ongoing Flowsheets (Taken 03/16/2020 2310) Absence of pulmonary infection: Intiate ventilator-associated pneumonia bundle Problem: VTE, Risk of Goal: Absence of venous thrombosis Outcome: Goal Ongoing Flowsheets (Taken 03/18/2020 0252) Absence of venous thrombosis: Assess peripheral circulation Assess for signs and symptoms of venous thrombosis Utilize prevent measures Problem: Self-Care Deficit Goal: Maximize Heart Failure Knowledge Outcome: Goal Ongoing Goal: Maximize Heart Failure Attitudes Outcome: Goal Ongoing Goal: Maximize Heart Failure Behaviors Outcome: Goal Ongoing Problem: Nutrition Deficit Goal: Adequate nutritional intake Outcome: Goal Ongoing Flowsheets (Taken 03/18/2020 0252) Adequate nutritional intake: Manage tube feeding and enteral nutritional administration Assess nutritional status Problem: Falls, High Risk of Goal: Absence of falls-Adult Patient Outcome: Goal Ongoing Flowsheets (Taken 03/18/2020 0252) Absence of falls-Adult Patient: Complete Fall Risk Assessment. Provde safe environment. * Care Plan - Ines Hyman RN - 03/17/2020 6:53 PM CDT Problem: Discharge Planning Goal: Participation in plan of care Outcome: Goal Ongoing Goal: Knowledge regarding plan of care Outcome: Goal Ongoing Goal: Prepared for discharge Outcome: Goal Ongoing Problem: Injury-Risk of, Non-Violent Physical Restraints Goal: Absence of Injury while physically restrained (Non-Violent) Outcome: Goal Ongoing Problem: Skin Integrity Goal: Skin integrity intact Outcome: Goal Ongoing Goal: Healing of skin (Wound & Incision) Outcome: Goal Ongoing Goal: Healing of skin (Pressure Injury) Outcome: Goal Ongoing Problem: Infection, Risk of, Central Venous Catheter-Associated Bloodstream Infe ction Goal: Absence of CVC Associated Bloodstream infection Outcome: Goal Ongoing Problem: Infection, Risk of, Urinary Catheter-Associated Urinary Tract Infection Goal: Absence of urinary catheter-associated infection Outcome: Goal Ongoing Problem: Respiratory Impairment (Ventilated Patients) Goal: Normal spontaneous ventilation Outcome: Goal Ongoing Goal: Absence of pulmonary infection (Adult only) Outcome: Goal Ongoing Problem: VTE, Risk of Goal: Absence of venous thrombosis Outcome: Goal Ongoing Problem: Self-Care Deficit Goal: Maximize Heart Failure Knowledge Outcome: Goal Ongoing Goal: Maximize Heart Failure Attitudes Outcome: Goal Ongoing Goal: Maximize Heart Failure Behaviors Outcome: Goal Ongoing Problem: Nutrition Deficit Goal: Adequate nutritional intake Outcome: Goal Ongoing Problem: Falls, High Risk of Goal: Absence of falls-Adult Patient Outcome: Goal Ongoing Goal: Absence of Falls-Pediatric patient Outcome: Goal Ongoing * Care Plan - Allie Ralph RN - 03/16/2020 11:12 PM CDT Problem: Discharge Planning Goal: Participation in plan of care Outcome: Goal Ongoing Goal: Knowledge regarding plan of care Outcome: Goal Ongoing Goal: Prepared for discharge Outcome: Goal Ongoing Problem: Injury-Risk of, Non-Violent Physical Restraints Goal: Absence of Injury while physically restrained (Non-Violent) Outcome: Goal Ongoing Flowsheets (Taken 03/16/2020 2310) Absence of injury while physically restrained - non-violent: Alternatives considered or attempted before application of non-violent restrain ts Monitor/document for non-violent patients Problem: Skin Integrity Goal: Skin integrity intact Outcome: Goal Ongoing Flowsheets (Taken 03/16/20200) Skin integrity intact: Assess nutrition Assure position change Monitor skin integrity Reduce skin shear, friction and tissue load Provide skin care interventions Provide incontinence management interventions Problem: Infection, Risk of, Central Venous Catheter-Associated Bloodstream Infe ction Goal: Absence of CVC Associated Bloodstream infection Outcome: Goal Ongoing Flowsheets (Taken 03/16/2020 2310) Absence of CVC associated bloodstream infection: Assess for central line catheter infection (Monitor SIRS criteria) Manage central venous catheter Follow central line bundle components Problem: Infection, Risk of, Urinary Catheter-Associated Urinary Tract Infection Goal: Absence of urinary catheter-associated infection Outcome: Goal Ongoing Flowsheets (Taken 03/16/2020 2310) Absence of urinary catheter-associated infections: Manage urinary catheter Assess for signs and sypmtoms of catheter-associated urinary tract infection Collect urinne specimens appropriately Problem: Respiratory Impairment (Ventilated Patients) Goal: Normal spontaneous ventilation Outcome: Goal Ongoing Flowsheets (Taken 03/16/2020 2310) Normal Spontaneous Ventilation: Assess mechanical ventilation Assess mechanical ventilation weaning readiness Provide mechanical ventilation managment Manage endotracheal/tracheal tube Provide oral hygiene Goal: Absence of pulmonary infection (Adult only) Outcome: Goal Ongoing Flowsheets (Taken 03/16/2020 2310) Absence of pulmonary infection: Intiate ventilator-associated pneumonia bundle documented in this encounter Plan of Treatment Not on filedocumented as of this encounter Goals Goal Patient Associated Recent Progress Patient-Stat Aut hor Goal Type Problems ed? GOAL General No Tana Saldivar RN Note: Get stronger Take Medication at Right Time, Medication No Lind, Right Day, Right Order, With Adherence Lorelei, Danilo N or Without Food Correctly documented as of this encounter Procedures Comments Procedure Name Priority Date/Time Associated Diag nosis MULTI GATED Routine 03/27/2020 2:17 PM CDT HC CBC W/ AUTOMATED DIFF Routine 03/27/2020 4:48 AM CDT HC MAGNESIUM Routine 03/27/2020 4:48 AM CDT HC COMPREHENSIVE Routine 03/27/2020 METABOLIC PANEL 4:48 AM CDT HC CBC W/ AUTOMATED DIFF Routine 03/26/2020 4:31 AM CDT HC MAGNESIUM Routine 03/26/2020 4:31 AM CDT HC COMPREHENSIVE Routine 03/26/2020 METABOLIC PANEL 4:31 AM CDT TROPONIN-I STAT 03/26/2020 3:15 AM CDT HC TROPONIN-I STAT 03/26/2020 12:45 AM CDT ECG 12-LEAD STAT 03/26/2020 12:26 AM CDT HC CBC W/ AUTOMATED DIFF Routine 03/25/2020 4:48 AM CDT HC MAGNESIUM Routine 03/25/2020 4:48 AM CDT HC COMPREHENSIVE Routine 03/25/2020 METABOLIC PANEL 4:48 AM CDT HC CBC W/ AUTOMATED DIFF Routine 03/24/2020 4:00 AM CDT HC MAGNESIUM Routine 03/24/2020 4:00 AM CDT HC COMPREHENSIVE Routine 03/24/2020 METABOLIC PANEL 4:00 AM CDT HC TROPONIN-I Routine 03/24/2020 12:40 AM CDT ECG 12-LEAD Routine 03/23/2020 11:06 PM CDT HC CBC W/ AUTOMATED DIFF Routine 03/23/2020 4:12 AM CDT HC MAGNESIUM Routine 03/23/2020 4:12 AM CDT HC COMPREHENSIVE Routine 03/23/2020 METABOLIC PANEL 4:12 AM CDT HC MAGNESIUM STAT 03/22/2020 2:10 PM CDT BASIC METABOLIC PANEL Routine 03/22/2020 2:10 PM CDT HC MAGNESIUM Routine 03/22/2020 7:55 AM CDT HC BASIC METABOLIC PANEL Routine 03/22/2020 7:55 AM CDT HC CBC W/ AUTOMATED DIFF Routine 03/22/2020 4:00 AM CDT HC MAGNESIUM Routine 03/22/2020 4:00 AM CDT HC COMPREHENSIVE Routine 03/22/2020 METABOLIC PANEL 4:00 AM CDT CONSULT IV THERAPY TEAM Routine 03/21/2020 7:50 PM CDT CHEST SINGLE VIEW Routine 03/21/2020 5:40 PM CDT HC MAGNESIUM Routine 03/21/2020 5:15 PM CDT HC BASIC METABOLIC PANEL Routine 03/21/2020 5:15 PM CDT HC TP/CR RATIO, RANDOM Routine 03/21/2020 1:55 PM CDT TROPONIN-I Routine 03/21/2020 1:55 PM CDT HC TROPONIN-I 03/21/2020 3:15 AM CDT HC CBC W/ AUTOMATED DIFF Routine 03/21/2020 3:15 AM CDT HC MAGNESIUM Routine 03/21/2020 3:15 AM CDT HC COMPREHENSIVE Routine 03/21/2020 METABOLIC PANEL 3:15 AM CDT TROPONIN-I STAT 03/20/2020 7:33 PM CDT HC TROPONIN-I Add on 03/20/2020 2:10 PM CDT HC MAGNESIUM STAT 03/20/2020 2:10 PM CDT HC BASIC METABOLIC PANEL STAT 03/20/2020 2:10 PM CDT HC BLOOD Routine 03/20/2020 GASES;(CALCULATED 02) 8:36 AM CDT CHEST SINGLE VIEW Routine 03/20/2020 8:29 AM CDT HC CBC W/ AUTOMATED DIFF Routine 03/20/2020 4:45 AM CDT HC MAGNESIUM Routine 03/20/2020 4:45 AM CDT HC COMPREHENSIVE Routine 03/20/2020 METABOLIC PANEL 4:45 AM CDT HC CBC W/ AUTOMATED DIFF Routine 03/19/2020 3:58 AM CDT HC TRIGLYCERIDE Routine 03/19/2020 3:58 AM CDT HC TSH(THYROID Routine 03/19/2020 STIMULATING HORM) 3:58 AM CDT HC MAGNESIUM Routine 03/19/2020 3:58 AM CDT HC BLOOD Routine 03/19/2020 GASES;(CALCULATED 02) 3:58 AM CDT HC COMPREHENSIVE Routine 03/19/2020 METABOLIC PANEL 3:58 AM CDT CONSULT IV THERAPY TEAM [...] VIEW Routine 03/18/2020 5:23 AM CDT HC CBC W/ AUTOMATED DIFF Routine 03/18/2020 4:30 AM CDT HC MAGNESIUM Routine 03/18/2020 4:30 AM CDT HC COMPREHENSIVE Routine 03/18/2020 METABOLIC PANEL 4:30 AM CDT HC B-TYPE NATRIURETIC STAT 03/18/2020 PEPTIDE 1:38 AM CDT HC MAGNESIUM STAT 03/18/2020 1:38 AM CDT HC BASIC METABOLIC PANEL STAT 03/18/2020 1:38 AM CDT CULTURE-BLOOD Routine 03/17/2020 W/SENSITIVITY 10:00 PM CDT HC CULTURE-BLOOD Routine 03/17/2020 10:00 PM CDT HC MAGNESIUM Routine 03/17/2020 1:24 PM CDT HC BASIC METABOLIC PANEL Routine 03/17/2020 1:24 PM CDT HC BLOOD Routine 03/17/2020 GASES;(CALCULATED 02) 8:50 AM CDT HC PROLCALCITONIN (PROCA) Add on 03/17/2020 2:50 AM CDT HC CBC W/ AUTOMATED DIFF Routine 03/17/2020 2:50 AM CDT HC MAGNESIUM Routine 03/17/2020 2:50 AM CDT HC COMPREHENSIVE Routine 03/17/2020 METABOLIC PANEL 2:[address] ABD/PELV WO CONTRAST STAT 03/16/2020 9:[address] CHEST WO CONTRAST STAT 03/16/2020 9:43 PM CDT HC LACTIC ACID - BG STAT 03/16/2020 SYRINGE 8:07 PM CDT HC VANCOMYCIN-TIMED STAT 03/16/2020 8:07 PM CDT URINALYSIS, MICROSCOPIC Routine 03/16/2020 5:30 PM CDT HC URINALYSIS, AUTO W Routine 03/16/2020 MICRO 5:30 PM CDT HC PTT(APTT) Routine 03/16/2020 5:26 PM CDT HC PT(INR) Routine 03/16/2020 5:26 PM CDT HC CBC W/ AUTOMATED DIFF Routine 03/16/2020 5:26 PM CDT HC TRIGLYCERIDE Add on 03/16/2020 5:26 PM CDT HC PHOSPHOROUS, SERUM Routine 03/16/2020 5:26 PM CDT HC B-TYPE NATRIURETIC Routine 03/16/2020 PEPTIDE 5:26 PM CDT HC MAGNESIUM Routine 03/16/2020 5:26 PM CDT HC LIPASE STAT 03/16/2020 5:26 PM CDT HC BLOOD STAT 03/16/2020 GASES;(CALCULATED 02) 5:26 PM CDT HC COMPREHENSIVE Routine 03/16/2020 METABOLIC PANEL 5:26 PM CDT HC CULTURE-BLOOD Routine 03/16/2020 5:24 PM CDT HC GRAM STAIN 03/16/2020 4:55 PM CDT HC CULTURE-LOWER RESP Routine 03/16/2020 4:55 PM CDT CULTURE-BLOOD Routine 03/16/2020 W/SENSITIVITY 3:26 PM CDT ECG-SCAN 03/16/2020 12:00 AM CDT ECG-SCAN [...] AM CDT EXTERNAL COVID-19 Routine 03/15/2020 (SARS-COV-2) documented in this encounter Results * REGADENOSON MPI STRESS TEST (03/27/2020 [...] 92 mL OTHER OUTSIDE LAB Study Number [id number] OTHER OUTSIDE LAB Nuclear In aggregate the current study OTHER OUTSIDE Cardiology is low risk in regards to LAB Mortality Risk predicted annual cardiovascular mortality rate. Specimen Narrative Performed At OTHER OUTSIDE LAB Nuclear Report [facility] Division of Nuclear Cardiac Imaging Consultation Report EXAMINATION: D-SPECT Gated [id number] 1 Chloride myocardial perfusion single-photon emission computed tomogra phy for viability, resting regional wall function, resting ejection fractio n, and perfusion imaging utilizing Regadenoson pharmacological stress. Date of Study: 03/27/20 Study #: [id number] CATRINA Billing ID: [id number] Referring Physician: Requested by: Jaylene Cloud MD [...] Approximately 20 seconds later 1.8 mCi of [id number] Chloride was injected intravenously. Throughout the infusion [...] intravenous injection of 0.5 5 mCi of [id number] Chloride as a reinjected dose to assist [...] Pharmacologic stress ECG is negative for ischemia. Dhmruzobg-yn-Snsnkcrqmm Count Ratio: 0.36 (normal = or < [...] annual cardiovascular mortality rate. Performing Organization Address City/State/Zipcode Ph one Number OTHER OUTSIDE LAB * MAGNESIUM (03/27/2020 4:48 AM CDT) Magnesium 2.0 1.6 - 2.6 mg/dL [facility]IN [facility] Specimen Blood Performing Organization Address [facility] one Number [facility] MAIN [facility] [address] [place] [address] * COMPREHENSIVE METABOLIC PANEL (03/27/2020 4:48 AM CDT) Sodium 140 137 - 147 [...] >60 >60 mL/min [facility]IN [facility] Comment: [place] The eGFR is not validated f or use in drug dosing adjustments. Continue to use estimated creatinine clearance per dosing reference text. Please contact the Clinical Pharmacist for questions. eGFR >60 >60 mL/min [facility] [place] Comment: The eGFR is not validated for use in drug dosing adjustments. Continue to use estimated creatinine clearance per dosing reference text. Please contact the Clinical Pharmacist for questions. Specimen Blood Performing Organization Address [facility] one Number [facility] [address] [place] [address] * CBC AND DIFF (03/27/2020 4:48 AM CDT) White Blood 8.1 4.5 - 11.0 K/UL [...] Basophil Count Specimen Blood Performing Organization Address [facility] Ph one Number MAIN LAB [address] [place] [address] * MAGNESIUM (03/26/2020 4:31 AM CDT) Pathologist [facility] Magnesium 2.0 1.6 - 2.6 mg/dL [facility] Specimen Blood Performing Organization Address [facility] Ph one Number [facility] MAIN [facility] [address] [place] [address] * COMPREHENSIVE METABOLIC PANEL (03/26/2020 4:31 AM CDT) Sodium 139 137 - 147 MMOL/L [facility] Potassium 3.7 3.5 - 5.1 MMOL/L [facility] Chloride 109 98 - 110 MMOL/L [facility] Glucose 88 70 - 100 MG/DL [facility] Blood Urea 24 7 - 25 MG/DL [facility] Nitrogen Creatinine 1.05 0.4 - 1.24 MG/DL [facility] Calcium 8.2 (L) 8.5 - 10.6 MG/DL [facility] Total Protein 5.5 (L) 6.0 - 8.0 G/DL [facility] Total Bilirubin 0.6 0.3 - 1.2 MG/DL [facility] Albumin 3.0 (L) 3.5 - 5.0 G/DL [facility] Alk Phosphatase 76 25 - 110 U/L [facility] AST (SGOT) 19 7 - 40 U/L [facility] CO2 22 21 - 30 MMOL/L [facility] ALT (SGPT) 26 7 - 56 U/L [facility] Anion Gap 8 3 - 12 [facility] eGFR Non >60 >60 mL/min [facility] Comment: [place] The eGFR is not validated f or use in drug dosing adjustments. Continue to use estimated creatinine clearance per dosing reference text. Please contact the Clinical Pharmacist for questions. eGFR >60 >60 mL/min [facility] [place] Comment: The eGFR is not validated for use in drug dosing adjustments. Continue to use estimated creatinine clearance per dosing reference text. Please contact the Clinical Pharmacist for questions. Specimen Blood Performing Organization Address City/State/Zipcode Ph one Number [facility] MAIN [facility] [address] [place] [address] * CBC AND DIFF (03/26/2020 4:31 AM CDT) White Blood 10.7 4.5 - 11.0 K/UL [facility] Cells RBC 3.73 (L) 4.4 - 5.5 M/UL [facility] Hemoglobin 10.7 (L) 13.5 - 16.5 GM/DL [facility] Hematocrit 30.6 (L) 40 - 50 % [facility] MCV 82.2 80 - 100 FL [facility] MCH 28.6 26 - 34 PG [facility] MCHC 34.8 32.0 - 36.0 G/DL [facility] RDW 14.5 11 - 15 % [facility] Platelet Count 500 (H) 150 - 400 K/UL [facility] MPV 8.5 7 - 11 FL [facility] Neutrophils 71 41 - 77 % [facility] Lymphocytes 11 (L) 24 - 44 % [facility] Monocytes 13 (H) 4 - 12 % [facility] Eosinophils 4 0 - 5 % [facility] Basophils 1 0 - 2 % [facility] Absolute 7.71 (H) 1.8 - 7.0 K/UL [facility] Neutrophil Count Absolute Lymph 1.18 1.0 - 4.8 K/UL [facility] Count Absolute 1.35 (H) 0 - 0.80 K/UL [facility] Monocyte Count Absolute 0.45 0 - 0.45 K/UL [facility] Eosinophil Count Absolute 0.06 0 - 0.20 K/UL [facility] Basophil Count Specimen Blood Performing Organization Address [facility] Ph one Number MAIN LAB [address] [place] [address] * TROPONIN-I (03/26/2020 3:15 AM CDT) Troponin-I 0.10 (H) 0.0 - 0.05 NG/ML [facility]IN [facility] Specimen Blood Performing Organization Address [facility] Ph one Number MAIN LAB [address] [place] [address] * TROPONIN-I (03/26/2020 12:45 AM CDT) Troponin-I 0.09 (H) 0.0 - 0.05 NG/ML [facility] Specimen Blood Performing Organization Address [facility] Ph one Number MAIN LAB [address] [place] [address] * MAGNESIUM (03/25/2020 4:48 AM CDT) Magnesium 2.2 1.6 - 2.6 mg/dL [facility] Specimen Blood Performing Organization Address [facility] one Number MAIN LAB [address] [place] [address] * COMPREHENSIVE METABOLIC PANEL (03/25/2020 4:48 AM CDT) Sodium 142 137 - 147 MMOL/L [facility] Potassium 3.6 3.5 - 5.1 MMOL/L [facility] Chloride 109 98 - 110 MMOL/L [facility] Glucose 87 70 - 100 MG/DL [facility] Blood Urea 27 (H) 7 - 25 MG/DL [facility] Nitrogen Creatinine 1.06 0.4 - 1.24 MG/DL [facility] Calcium 8.1 (L) 8.5 - 10.6 MG/DL [facility] Total Protein 5.4 (L) 6.0 - 8.0 G/DL [facility] Total Bilirubin 0.7 0.3 - 1.2 MG/DL [facility] Albumin 3.0 (L) 3.5 - 5.0 G/DL [facility] Alk Phosphatase 73 25 - 110 U/L [facility] AST (SGOT) 22 7 - 40 U/L [facility] CO2 24 21 - 30 MMOL/L [facility] ALT (SGPT) 29 7 - 56 U/L [facility] Anion Gap 9 3 - 12 [facility] eGFR Non >60 >60 mL/min [facility] Comment: [place] The eGFR is not validated f or use in drug dosing adjustments. Continue to use estimated creatinine clearance per dosing reference text. Please contact the Clinical Pharmacist for questions. eGFR >60 >60 mL/min [facility] [place] Comment: The eGFR is not validated for use in drug dosing adjustments. Continue to use estimated creatinine clearance per dosing reference text. Please contact the Clinical Pharmacist for questions. Specimen Blood Performing Organization Address City/State/Zipcode Ph one Number [facility]IN [facility] [address] [place] [address] * CBC AND DIFF (03/25/2020 4:48 AM CDT) White Blood 10.5 4.5 - 11.0 K/UL [facility] Cells RBC 3.76 (L) 4.4 - 5.5 M/UL [facility] Hemoglobin 10.7 (L) 13.5 - 16.5 GM/DL [facility] Hematocrit 31.2 (L) 40 - 50 % [facility] MCV 83.0 80 - 100 FL [facility] MCH 28.3 26 - 34 PG [facility] MCHC 34.2 32.0 - 36.0 G/DL [facility] RDW 14.4 11 - 15 % [facility] Platelet Count 520 (H) 150 - 400 K/UL [facility] MPV 8.2 7 - 11 FL [facility] Neutrophils 67 41 - 77 % [facility] Lymphocytes 13 (L) 24 - 44 % [facility] Monocytes 13 (H) 4 - 12 % [facility] Eosinophils 6 (H) 0 - 5 % [facility] Basophils 1 0 - 2 % [facility] Absolute 7.02 (H) 1.8 - 7.0 K/UL [facility] Neutrophil Count Absolute Lymph 1.41 1.0 - 4.8 K/UL [facility] Count Absolute 1.40 (H) 0 - 0.80 K/UL [facility] Monocyte Count Absolute 0.60 (H) 0 - 0.45 K/UL [facility] Eosinophil Count Absolute 0.10 0 - 0.20 K/UL [facility] Basophil Count Specimen Blood Performing Organization Address [facility] one Number [facility]IN [facility] [address] [place] [address] * MAGNESIUM (03/24/2020 4:00 AM CDT) Magnesium 2.2 1.6 - 2.6 mg/dL [facility] Specimen Blood Performing Organization Address [facility] one Number [facility] [address] [place] [address] * COMPREHENSIVE METABOLIC PANEL (03/24/2020 4:00 AM CDT) Sodium 142 137 - 147 MMOL/L [facility] Potassium 3.6 3.5 - 5.1 MMOL/L [facility] Chloride 111 (H) 98 - 110 MMOL/L [facility] Glucose 78 70 - 100 MG/DL [facility] Blood Urea 31 (H) 7 - 25 MG/DL [facility] Nitrogen Creatinine 1.04 0.4 - 1.24 MG/DL [facility] Calcium 7.9 (L) 8.5 - 10.6 MG/DL [facility] Total Protein 5.4 (L) 6.0 - 8.0 G/DL [facility] Total Bilirubin 0.7 0.3 - 1.2 MG/DL [facility] Albumin 2.9 (L) 3.5 - 5.0 G/DL [facility] Alk Phosphatase 71 25 - 110 U/L [facility] AST (SGOT) 21 7 - 40 U/L [facility] CO2 23 21 - 30 MMOL/L [facility] ALT (SGPT) 29 7 - 56 U/L [facility] Anion Gap 8 3 - 12 [facility] eGFR Non >60 >60 mL/min [facility] Comment: [place] The eGFR is not validated f or use in drug dosing adjustments. Continue to use estimated creatinine clearance per dosing reference text. Please contact the Clinical Pharmacist for questions. eGFR >60 >60 mL/min [facility] [place] Comment: The eGFR is not validated for use in drug dosing adjustments. Continue to use estimated creatinine clearance per dosing reference text. Please contact the Clinical Pharmacist for questions. Specimen Blood Performing Organization Address [facility] Ph one Number [facility] [address] [place] [address] * CBC AND DIFF (03/24/2020 4:00 AM CDT) Pathologist [facility] White Blood 12.6 (H) 4.5 - 11.0 K/UL [facility] Cells RBC 3.83 (L) 4.4 - 5.5 M/UL [facility] Hemoglobin 10.8 (L) 13.5 - 16.5 GM/DL [facility] Hematocrit 31.6 (L) 40 - 50 % [facility] MCV 82.6 80 - 100 FL [facility] MCH 28.2 26 - 34 PG [facility] MCHC 34.2 32.0 - 36.0 G/DL [facility] RDW 14.5 11 - 15 % [facility] Platelet Count 480 (H) 150 - 400 K/UL [facility] MPV 8.6 7 - 11 FL [facility] Neutrophils 72 41 - 77 % [facility] Lymphocytes 10 (L) 24 - 44 % [facility] Monocytes 15 (H) 4 - 12 % [facility] Eosinophils 3 0 - 5 % [facility] Basophils 0 0 - 2 % [facility] Absolute 9.10 (H) 1.8 - 7.0 K/UL [facility] Neutrophil Count Absolute Lymph 1.20 1.0 - 4.8 K/UL [facility] Count Absolute 1.90 (H) 0 - 0.80 K/UL [facility] Monocyte Count Absolute 0.40 0 - 0.45 K/UL [facility] Eosinophil Count Absolute 0.10 0 - 0.20 K/UL [facility] Basophil Count Specimen Blood Performing Organization Address [facility] Ph one Number [facility]IN [facility] [address] [place] [address] * TROPONIN-I (03/24/2020 12:40 AM CDT) Pathologist [facility] Troponin-I 0.14 (H) 0.0 - 0.05 NG/ML [facility] Specimen Blood Performing Organization Address City/[facility] Ph one Number MAIN LAB [address] [place] [address] * MAGNESIUM (03/23/2020 4:12 AM CDT) Pathologist [facility] Magnesium 2.4 1.6 - 2.6 mg/dL [facility] Specimen Blood Performing Organization Address City/State/Zipcode Ph one Number [facility] [address] [place] [address] * COMPREHENSIVE METABOLIC PANEL (03/23/2020 4:12 AM CDT) Sodium 142 137 - 147 MMOL/L [facility] Potassium 3.5 3.5 - 5.1 MMOL/L [facility] Chloride 109 98 - 110 MMOL/L [facility] Glucose 109 (H) 70 - 100 MG/DL [facility] Blood Urea 38 (H) 7 - 25 MG/DL [facility] Nitrogen Creatinine 1.07 0.4 - 1.24 MG/DL [facility] Calcium 8.1 (L) 8.5 - 10.6 MG/DL [facility] Total Protein 5.5 (L) 6.0 - 8.0 G/DL [facility] Total Bilirubin 0.7 0.3 - 1.2 MG/DL [facility] Albumin 2.9 (L) 3.5 - 5.0 G/DL [facility] Alk Phosphatase 73 25 - 110 U/L [facility] AST (SGOT) 26 7 - 40 U/L [facility] CO2 24 21 - 30 MMOL/L [facility] ALT (SGPT) 30 7 - 56 U/L [facility] Anion Gap 9 3 - 12 [facility] eGFR Non >60 >60 mL/min [facility] Comment: [place] The eGFR is not validated f or use in drug dosing adjustments. Continue to use estimated creatinine clearance per dosing reference text. Please contact the Clinical Pharmacist for questions. eGFR >60 >60 mL/min [facility] [place] Comment: The eGFR is not validated for use in drug dosing adjustments. Continue to use estimated creatinine clearance per dosing reference text. Please contact the Clinical Pharmacist for questions. Specimen Blood Performing Organization Address City/State/Zipcode Ph one Number [facility]IN [facility] [address] [place] [address] * CBC AND DIFF (03/23/2020 4:12 AM CDT) White Blood 11.9 (H) 4.5 - 11.0 K/UL [facility] Cells RBC 4.17 (L) 4.4 - 5.5 M/UL [facility] Hemoglobin 11.4 (L) 13.5 - 16.5 GM/DL [facility] Hematocrit 34.3 (L) 40 - 50 % [facility] MCV 82.3 80 - 100 FL [facility] MCH 27.4 26 - 34 PG [facility] MCHC 33.3 32.0 - 36.0 G/DL [facility] RDW 15.1 (H) 11 - 15 % [facility] Platelet Count 473 (H) 150 - 400 K/UL [facility] MPV 8.1 7 - 11 FL [facility] Neutrophils 66 41 - 77 % [facility] Lymphocytes 12 (L) 24 - 44 % [facility] Monocytes 17 (H) 4 - 12 % [facility] Eosinophils 5 0 - 5 % [facility] Basophils 0 0 - 2 % [facility] Absolute 7.92 (H) 1.8 - 7.0 K/UL [facility] Neutrophil Count Absolute Lymph 1.38 1.0 - 4.8 K/UL [facility] Count Absolute 2.00 (H) 0 - 0.80 K/UL [facility] Monocyte Count Absolute 0.55 (H) 0 - 0.45 K/UL [facility] Eosinophil Count Absolute 0.04 0 - 0.20 K/UL [facility] Basophil Count Specimen Blood Performing Organization Address [facility] Ph one Number MAIN LAB [address] [place] [address] * MAGNESIUM (03/22/2020 2:10 PM CDT) Pathologist [facility] Magnesium 2.4 1.6 - 2.6 mg/dL [facility] Specimen Blood Performing Organization Address [facility] Ph one Number MAIN LAB [address] [place] [address] * BASIC METABOLIC PANEL (03/22/2020 2:10 PM CDT) Sodium 142 137 - 147 MMOL/L [...] >60 >60 mL/min [facility] Comment: [place] The eGFR is not validated f or use in drug dosing adjustments. Continue to use estimated creatinine clearance per dosing reference text. Please contact the Clinical Pharmacist for questions. eGFR >60 >60 mL/min [facility] [place] Comment: The eGFR is not validated for use in drug dosing adjustments. Continue to use estimated creatinine clearance per dosing reference text. Please contact the Clinical Pharmacist for questions. Specimen Blood Performing Organization Address [facility] one Number MAIN LAB [address] [place] [address] * MAGNESIUM (03/22/2020 7:55 AM CDT) Magnesium 2.5 1.6 - 2.6 mg/dL [facility] Specimen Blood Performing Organization Address [facility] one Number MAIN LAB [address] [place] [address] * BASIC METABOLIC PANEL (03/22/2020 7:55 AM CDT) Sodium 144 137 - 147 MMOL/L [facility] Potassium 4.3 3.5 - 5.1 MMOL/L [facility] Chloride 111 (H) 98 - 110 MMOL/L [facility] CO2 26 21 - 30 MMOL/L [facility] Anion Gap 7 3 - 12 [facility] Glucose 86 70 - 100 MG/DL [facility] Blood Urea 39 (H) 7 - 25 MG/DL [facility] Nitrogen Creatinine 0.98 0.4 - 1.24 MG/DL [facility] Calcium 8.1 (L) 8.5 - 10.6 MG/DL [facility] eGFR Non >60 >60 mL/min MAIN LAB Comment: [place] The eGFR is not validated f or use in drug dosing adjustments. Continue to use estimated creatinine clearance per dosing reference text. Please contact the Clinical Pharmacist for questions. eGFR >60 >60 mL/min [facility] [place] Comment: The eGFR is not validated for use in drug dosing adjustments. Continue to use estimated creatinine clearance per dosing reference text. Please contact the Clinical Pharmacist for questions. Specimen Blood Performing Organization Address [facility] one Number MAIN LAB [address] [place] [address] * MAGNESIUM (03/22/2020 4:00 AM CDT) Magnesium 2.3Comment: SLT HEMOLYSIS 1.6 - 2.6 mg/dL [facility] Specimen Blood Performing Organization Address City/[facility] Ph one Number [facility] [address] [place] [address] * COMPREHENSIVE METABOLIC PANEL (03/22/2020 4:00 AM CDT) Sodium 145 137 - 147 MMOL/L [facility] Potassium 4.0Comment: SLT HEMOLYSIS 3.5 - 5.1 MMOL/L [facility] Chloride 112 (H) 98 - 110 MMOL/L [facility] Glucose 78 70 - 100 MG/DL [facility] Blood Urea 35 (H) 7 - 25 MG/DL [facility] Nitrogen Creatinine 1.05 0.4 - 1.24 MG/DL [facility] Calcium 7.3 (L) 8.5 - 10.6 MG/DL [facility] Total Protein 5.0 (L) 6.0 - 8.0 G/DL [facility] Total Bilirubin 0.7 0.3 - 1.2 MG/DL [facility] Albumin 2.5 (L) 3.5 - 5.0 G/DL [facility] Alk Phosphatase 59 25 - 110 U/L [facility] AST (SGOT) 34 7 - 40 U/L [facility] CO2 27 21 - 30 MMOL/L [facility] ALT (SGPT) 27 7 - 56 U/L [facility] Anion Gap 6 3 - 12 [facility] eGFR Non >60 >60 mL/min [facility] Comment: [place] The eGFR is not validated f or use in drug dosing adjustments. Continue to use estimated creatinine clearance per dosing reference text. Please contact the Clinical Pharmacist for questions. eGFR >60 >60 mL/min [facility] [place] Comment: The eGFR is not validated for use in drug dosing adjustments. Continue to use estimated creatinine clearance per dosing reference text. Please contact the Clinical Pharmacist for questions. Specimen Blood Performing Organization Address City/[facility] Ph one Number [facility] [address] [place] [address] * CBC AND DIFF (03/22/2020 4:00 AM CDT) White Blood 13.4 (H) 4.5 - 11.0 K/UL [facility] Cells RBC 3.51 (L) 4.4 - 5.5 M/UL [facility] Hemoglobin 10.0 (L) 13.5 - 16.5 GM/DL [facility] Hematocrit 29.4 (L) 40 - 50 % [facility] MCV 83.8 80 - 100 FL [facility] MCH 28.5 26 - 34 PG [facility] MCHC 34.0 32.0 - 36.0 G/DL [facility] RDW 15.0 11 - 15 % [facility] Platelet Count 498 (H) 150 - 400 K/UL [facility] MPV 8.5 7 - 11 FL [facility] Neutrophils 69 41 - 77 % [facility] Lymphocytes 10 (L) 24 - 44 % [facility] Monocytes 18 (H) 4 - 12 % [facility] Eosinophils 3 0 - 5 % [facility] Basophils 0 0 - 2 % [facility] Absolute 9.33 (H) 1.8 - 7.0 K/UL [facility] Neutrophil Count Absolute Lymph 1.28 1.0 - 4.8 K/UL [facility] Count Absolute 2.39 (H) 0 - 0.80 K/UL [facility] Monocyte Count Absolute 0.39 0 - 0.45 K/UL [facility] Eosinophil Count Absolute 0.05 0 - 0.20 K/UL [facility] Basophil Count Specimen Blood Performing Organization Address City/State/Zipcode Ph one Number [facility] [address] [place] [address] * CHEST SINGLE VIEW (03/21/2020 5:40 PM CDT) Specimen Impressions Performed At Persistent small pleural [...] on 03/22/2020 7:17 AM. Performing Organization Address City/State/Zipcode Ph one Number [facility] RAD RESULTS * MAGNESIUM (03/21/2020 5:15 PM CDT) Magnesium 2.4 1.6 - 2.6 mg/dL [facility] Specimen Blood Performing Organization Address City/State/Zipcode Ph one Number [facility] MAIN [facility] [address] [place] [address] * BASIC METABOLIC PANEL (03/21/2020 5:15 PM CDT) Sodium 144 137 - 147 MMOL/L [facility] Potassium 3.5 3.5 - 5.1 MMOL/L [facility] Chloride 108 98 - 110 MMOL/L [facility] CO2 26 21 - 30 MMOL/L [facility] Anion Gap 10 3 - 12 [facility] Glucose 113 (H) 70 - 100 MG/DL [facility] Blood Urea 35 (H) 7 - 25 MG/DL [facility] Nitrogen Creatinine 1.04 0.4 - 1.24 MG/DL [facility] Calcium 8.3 (L) 8.5 - 10.6 MG/DL [facility] eGFR Non >60 >60 mL/min [facility] Comment: [place] The eGFR is not validated f or use in drug dosing adjustments. Continue to use estimated creatinine clearance per dosing reference text. Please contact the Clinical Pharmacist for questions. eGFR >60 >60 mL/min [facility] [place] Comment: The eGFR is not validated for use in drug dosing adjustments. Continue to use estimated creatinine clearance per dosing reference text. Please contact the Clinical Pharmacist for questions. Specimen Blood Performing Organization Address [facility] one Number MAIN LAB [address] [place] [address] * TROPONIN-I (03/21/2020 1:55 PM CDT) Troponin-I 0.67 (H) 0.0 - 0.05 NG/ML [facility] Specimen Blood Performing Organization Address [facility] one Number MAIN LAB [address] [place] [address] * PROTEIN/CR RATIO,UR RAN (03/21/2020 1:55 PM CDT) Protein, Random 5 MG/DL [facility] Creatinine, 9 MG/DL [facility] Random Protein/CR 0.6 [facility] ratio Specimen Urine - Urine Performing Organization [facility] one Number MAIN LAB [address] [place] [address] * TROPONIN-I (03/21/2020 3:15 AM CDT) Troponin-I 0.72 (H) 0.0 - 0.05 NG/ML [facility] Specimen Performing Organization [facility] one Number MAIN LAB [address] [place] [id number] * MAGNESIUM (03/21/2020 3:15 AM CDT) Magnesium 2.3 1.6 - 2.6 mg/dL [facility] Specimen Blood Performing Organization Address [facility] one Number MAIN LAB [address] [place] [address] * COMPREHENSIVE METABOLIC PANEL (03/21/2020 3:15 AM CDT) Sodium 146 137 - 147 MMOL/L [facility] Potassium 3.8 3.5 - 5.1 MMOL/L [facility] Chloride 109 98 - 110 MMOL/L [facility] Glucose 108 (H) 70 - 100 MG/DL [facility] Blood Urea 41 (H) 7 - 25 MG/DL [facility] Nitrogen Creatinine 1.05 0.4 - 1.24 MG/DL [facility] Calcium 8.5 8.5 - 10.6 MG/DL [facility] Total Protein 5.9 (L) 6.0 - 8.0 G/DL [facility] Total Bilirubin 0.6 0.3 - 1.2 MG/DL [facility] Albumin 3.2 (L) 3.5 - 5.0 G/DL [facility] Alk Phosphatase 76 25 - 110 U/L [facility] AST (SGOT) 32 7 - 40 U/L [facility] CO2 25 21 - 30 MMOL/L [facility] ALT (SGPT) 26 7 - 56 U/L [facility] Anion Gap 12 3 - 12 [facility] eGFR Non >60 >60 mL/min [facility] Comment: [place] The eGFR is not validated f or use in drug dosing adjustments. Continue to use estimated creatinine clearance per dosing reference text. Please contact the Clinical Pharmacist for questions. eGFR >60 >60 mL/min [facility] [place] Comment: The eGFR is not validated for use in drug dosing adjustments. Continue to use estimated creatinine clearance per dosing reference text. Please contact the Clinical Pharmacist for questions. Specimen Blood Performing Organization Address City/State/Zipcode Ph one Number [facility] [address] [place] [address] * CBC AND DIFF (03/21/2020 3:15 AM CDT) White Blood 16.3 (H) 4.5 - 11.0 K/UL [facility] Cells RBC 4.49 4.4 - 5.5 M/UL [facility] Hemoglobin 12.6 (L) 13.5 - 16.5 GM/DL [facility] Hematocrit 37.2 (L) 40 - 50 % [facility] MCV 83.0 80 - 100 FL [facility] MCH 28.1 26 - 34 PG [facility] MCHC 33.9 32.0 - 36.0 G/DL [facility] RDW 15.1 (H) 11 - 15 % [facility] Platelet Count 504 (H) 150 - 400 K/UL [facility] MPV 8.1 7 - 11 FL [facility] Neutrophils 81 (H) 41 - 77 % [facility] Lymphocytes 4 (L) 24 - 44 % [facility] Monocytes 15 (H) 4 - 12 % [facility] Eosinophils 0 0 - 5 % [facility] Basophils 0 0 - 2 % [facility] Absolute 13.20 (H) 1.8 - 7.0 K/UL [facility] Neutrophil Count Absolute Lymph 0.61 (L) 1.0 - 4.8 K/UL [facility] Count Absolute 2.44 (H) 0 - 0.80 K/UL [facility] Monocyte Count Absolute 0.03 0 - 0.45 K/UL [facility] Eosinophil Count Absolute 0.03 0 - 0.20 K/UL [facility] Basophil Count Specimen Blood Performing Organization Address [facility] Ph one Number MA[facility] LAB [address] [place] [address] * TROPONIN-I (03/20/2020 7:33 PM CDT) Troponin-I 0.32 (H) 0.0 - 0.05 NG/ML [facility] Specimen Blood Performing Organization Address [facility] Ph one Number MAIN LAB [address] [place] [address] * TROPONIN-I (03/20/2020 2:10 PM CDT) Troponin-I 0.22 (H) 0.0 - 0.05 NG/ML [facility] Specimen Performing Organization Address [facility] Ph one Number MAIN LAB [address] [place] [address] * MAGNESIUM (03/20/2020 2:10 PM CDT) Magnesium 2.5 1.6 - 2.6 mg/dL [facility] Specimen Blood Performing Organization Address [facility] Ph one Number MAIN LAB [address] [place] [address] * BASIC METABOLIC PANEL (03/20/2020 2:10 PM CDT) Sodium 147 137 - 147 MMOL/L [facility] Potassium 3.6 3.5 - 5.1 MMOL/L [facility] Chloride 108 98 - 110 MMOL/L [facility] CO2 31 (H) 21 - 30 MMOL/L [facility] Anion Gap 8 3 - 12 [facility] Glucose 119 (H) 70 - 100 MG/DL [facility] Blood Urea 46 (H) 7 - 25 MG/DL [facility] Nitrogen Creatinine 1.25 (H) 0.4 - 1.24 MG/DL [facility] Calcium 8.3 (L) 8.5 - 10.6 MG/DL [facility] eGFR Non 59 (L) >60 mL/min [facility] Comment: [place] The eGFR is not validated f or use in drug dosing adjustments. Continue to use estimated creatinine clearance per dosing reference text. Please contact the Clinical Pharmacist for questions. eGFR >60 >60 mL/min [facility] [place] Comment: The eGFR is not validated for use in drug dosing adjustments. Continue to use estimated creatinine clearance per dosing reference text. Please contact the Clinical Pharmacist for questions. Specimen Blood Performing Organization Address City/[facility] Ph one Number [facility] [address] [place] [address] * BLOOD GASES, ARTERIAL (03/20/2020 8:36 AM CDT) pH-Arterial 7.41 7.35 - 7.45 [facility] pCO2-Arterial 47 (H) 35 - 45 MMHG [facility] pO2-Arterial 90 80 - 100 MMHG [facility] Base 4.1 MMOL/L [facility] Excess-Arterial O2 Sat-Arterial 96.8 95 - 99 % [facility] Bicarbonate-ART 28.1 (H) 21 - 28 MMOL/L [facility] -Won Specimen Blood, arterial - Blood Performing Organization Address City/[facility] Ph one Number [facility] [address] [place] [address] * CHEST SINGLE VIEW (03/20/2020 8:29 AM CDT) Specimen Impressions Performed At Similar appearance of the chest with pe rsistent bilateral pleural effusions with [facility] RESULTS adjacent opacities, compatible with ate lectasis and/or pneumonia. Finalized by Reina Stack M.D. on 03/20/2020 9:18 AM. Dictated by Reina Stack M.D. on 03/20/2020 9:16 AM. Narrative Performed At CHEST SINGLE VIEW [facility] RESULTS Indication: intubated, hypoxia, follow up effusions. Comparison: March 18, 2020 Findings: The heart and pulmonary vasculature are similar in appearance. There are persistent bilateral pleural effusions with adjacent opacities, compatible with atelectasis and/or pneumonia. No pneumo thorax is identified. ET and NG tubes appear in similar positions. There is i nterval removal of the right IJ catheter. Procedure Note Interface, Radiant Results - 03/20/2020 9:21 AM CDT CHEST SINGLE VIEW Indication: intubated, hypoxia, follow up effusions. Comparison: March 18, 2020 Findings: The heart and pulmonary vasculature are similar in appearance. There are persistent bilateral pleural effusions with adjacent opacities, compatible with atelectasis and/or pneumonia. No pneumothorax is identified. ET and NG tubes appear in similar positions. There is interval removal of the right IJ catheter. IMPRESSION Similar appearance of the chest with persistent bilateral pleural effusions with adjacent opacities, compatible with atelectasis and/or pneumonia. Finalized by Reina Stack M.D. on 03/20/2020 9:18 AM. Dictated by Reina Stack M.D. on 03/20/2020 9:16 AM. Performing Organization Address City/[facility] Ph one Number [facility] * MAGNESIUM (03/20/2020 4:45 AM CDT) Magnesium 2.4 1.6 - 2.6 mg/dL [facility] Specimen Blood Performing Organization Address City/[facility] Ph one Number [facility] [address] [place] [address] * COMPREHENSIVE METABOLIC PANEL (03/20/2020 4:45 AM CDT) Sodium 145 137 - 147 MMOL/L [facility] Potassium 4.0 3.5 - 5.1 MMOL/L [facility] Chloride 112 (H) 98 - 110 MMOL/L [facility] Glucose 162 (H) 70 - 100 MG/DL [facility] Blood Urea 44 (H) 7 - 25 MG/DL [facility] Nitrogen Creatinine 1.01 0.4 - 1.24 MG/DL [facility] Calcium 7.8 (L) 8.5 - 10.6 MG/DL [facility] Total Protein 5.1 (L) 6.0 - 8.0 G/DL [facility] Total Bilirubin 0.3 0.3 - 1.2 MG/DL [facility] Albumin 2.8 (L) 3.5 - 5.0 G/DL [facility] Alk Phosphatase 65 25 - 110 U/L [facility] AST (SGOT) 21 7 - 40 U/L [facility] CO2 23 21 - 30 MMOL/L [facility] ALT (SGPT) 18 7 - 56 U/L [facility] Anion Gap 10 3 - 12 [facility] eGFR Non >60 >60 mL/min [facility] Comment: [place] The eGFR is not validated f or use in drug dosing adjustments. Continue to use estimated creatinine clearance per dosing reference text. Please contact the Clinical Pharmacist for questions. eGFR >60 >60 mL/min [facility] [place] Comment: The eGFR is not validated for use in drug dosing adjustments. Continue to use estimated creatinine clearance per dosing reference text. Please contact the Clinical Pharmacist for questions. Specimen Blood Performing Organization Address [facility] Ph one Number [facility] [address] [place] [address] * CBC AND DIFF (03/20/2020 4:45 AM CDT) White Blood 14.5 (H) 4.5 - 11.0 K/UL [facility] Cells RBC 4.16 (L) 4.4 - 5.5 M/UL [facility] Hemoglobin 11.8 (L) 13.5 - 16.5 GM/DL [facility] Hematocrit 34.9 (L) 40 - 50 % [facility] MCV 83.8 80 - 100 FL [facility] MCH 28.4 26 - 34 PG [facility] MCHC 33.9 32.0 - 36.0 G/DL [facility] RDW 15.4 (H) 11 - 15 % [facility] Platelet Count 429 (H) 150 - 400 K/UL [facility] MPV 8.0 7 - 11 FL [facility] Neutrophils 76 41 - 77 % [facility] Lymphocytes 6 (L) 24 - 44 % [facility] Monocytes 14 (H) 4 - 12 % [facility] Eosinophils 4 0 - 5 % [facility] Basophils 0 0 - 2 % [facility] Absolute 10.87 (H) 1.8 - 7.0 K/UL [facility] Neutrophil Count Absolute Lymph 0.87 (L) 1.0 - 4.8 K/UL [facility] Count Absolute 2.07 (H) 0 - 0.80 K/UL [facility] Monocyte Count Absolute 0.59 (H) 0 - 0.45 K/UL [facility] Eosinophil Count Absolute 0.06 0 - 0.20 K/UL [facility] Basophil Count Specimen Blood Performing Organization Address City/[facility] Ph one Number [facility] [address] [place] [address] * MAGNESIUM (03/19/2020 3:58 AM CDT) Magnesium 2.3 1.6 - 2.6 mg/dL [facility] Specimen Blood Performing Organization Address City/State/Zipcode Ph one Number [facility] [address] [place] [address] * COMPREHENSIVE METABOLIC PANEL (03/19/2020 3:58 AM CDT) Sodium 146 137 - 147 MMOL/L [facility] Potassium 3.9 3.5 - 5.1 MMOL/L [facility] Chloride 112 (H) 98 - 110 MMOL/L [facility] Glucose 129 (H) 70 - 100 MG/DL [facility] Blood Urea 40 (H) 7 - 25 MG/DL [facility] Nitrogen Creatinine 1.12 0.4 - 1.24 MG/DL [facility] Calcium 8.1 (L) 8.5 - 10.6 MG/DL [facility] Total Protein 5.1 (L) 6.0 - 8.0 G/DL [facility] Total Bilirubin 0.3 0.3 - 1.2 MG/DL [facility] Albumin 2.7 (L) 3.5 - 5.0 G/DL [facility] Alk Phosphatase 66 25 - 110 U/L [facility] AST (SGOT) 15 7 - 40 U/L [facility] CO2 27 21 - 30 MMOL/L [facility] ALT (SGPT) 18 7 - 56 U/L [facility] Anion Gap 7 3 - 12 [facility] eGFR Non >60 >60 mL/min [facility] Comment: [place] The eGFR is not validated f or use in drug dosing adjustments. Continue to use estimated creatinine clearance per dosing reference text. Please contact the Clinical Pharmacist for questions. eGFR >60 >60 mL/min [facility] [place] Comment: The eGFR is not validated for use in drug dosing adjustments. Continue to use estimated creatinine clearance per dosing reference text. Please contact the Clinical Pharmacist for questions. Specimen Blood Performing Organization Address City/State/Zipcode Ph one Number [facility] [address] [place] [address] * CBC AND DIFF (03/19/2020 3:58 AM CDT) White Blood 12.8 (H) 4.5 - 11.0 K/UL [facility] Cells RBC 4.43 4.4 - 5.5 M/UL MAIN LAB Hemoglobin 12.1 (L) 13.5 - 16.5 GM/DL MAIN LAB Hematocrit 36.5 (L) 40 - 50 % MAIN LAB MCV 82.4 80 - 100 FL MAIN LAB MCH 27.3 26 - 34 PG MAIN LAB MCHC 33.1 32.0 - 36.0 G/DL MAIN LAB RDW 15.1 (H) 11 - 15 % MAIN LAB Platelet Count 434 (H) 150 - 400 K/UL MAIN LAB MPV 8.1 7 - 11 FL MAIN LAB Segmented 80 (H) 41 - 77 % MAIN LAB Neutrophils Lymphocytes 5 (L) 24 - 44 % MAIN LAB Monocytes 13 (H) 4 - 12 % MAIN LAB Eosinophil 1 0 - 5 % MAIN LAB Myelocyte 1 % MAIN LAB ANISO PRESENT MAIN LAB POIK PRESENT MAIN LAB Platelet SLT INC MAIN LAB Estimate Absolute 10.24 (H) 1.8 - 7.0 K/UL MAIN LAB Neutrophil Count Manual Specimen Blood Performing Organization Address [facility] Ph one Number MAIN LAB [address] [place] [address] * THYROID STIMULATING HORMONE-TSH (03/19/2020 3:58 AM CDT) TSH 7.65 (H) 0.35 - 5.00 MCU/ML MAIN LAB Specimen Blood Performing Organization Address [facility] Ph one Number MAIN LAB [address] [place] [address] * TRIGLYCERIDE (03/19/2020 3:58 AM CDT) Triglycerides 120 <150 MG/DL MAIN LAB Specimen Blood Performing Organization Address [facility] Ph one Number MAIN LAB [address] [place] [address] * BLOOD GASES, ARTERIAL (03/19/2020 3:58 AM CDT) pH-Arterial 7.46 (H) 7.35 - 7.45 MAIN LAB pCO2-Arterial 40 35 - 45 MMHG MAIN LAB pO2-Arterial 103 (H) 80 - 100 MMHG [facility] Base 4.1 MMOL/L MAIN LAB Excess-Arterial O2 Sat-Arterial 98.0 95 - 99 % MAIN LAB Bicarbonate-ART 28.1 (H) 21 - 28 MMOL/L MAIN LAB -Won Specimen Blood, arterial - Blood Performing Organization Address [facility] one Number MAIN LAB [address] [place] [address] * CBC (03/18/2020 12:10 PM CDT) White Blood 16.5 (H) 4.5 - 11.0 K/UL MAIN LAB Cells RBC 4.49 4.4 - 5.5 M/UL MAIN LAB Hemoglobin 12.4 (L) 13.5 - 16.5 GM/DL MAIN LAB Hematocrit 37.2 (L) 40 - 50 % MAIN LAB MCV 82.9 80 - 100 FL MAIN LAB MCH 27.6 26 - 34 PG MAIN LAB MCHC 33.3 32.0 - 36.0 G/DL MAIN LAB RDW 15.4 (H) 11 - 15 % MAIN LAB Platelet Count 346 150 - 400 K/UL MAIN LAB MPV 8.6 7 - 11 FL MAIN LAB Specimen Blood Performing Organization Address [facility] one Number MAIN LAB [address] [place] [address] * IONIZED CALCIUM,BG (03/18/2020 9:45 AM CDT) Ionized Calcium 1.20 1.0 - 1.3 MMOL/L MAIN LAB Specimen Blood Performing Organization Address [facility] Ph one Number MAIN LAB [address] [place] [address] * PHOSPHORUS (03/18/2020 9:45 AM CDT) Phosphorus 4.0 2.0 - 4.5 MG/DL MAIN LAB Specimen Blood Performing Organization Address [facility] Ph one Number MAIN LAB [address] [place] [address] * MAGNESIUM (03/18/2020 9:45 AM CDT) Magnesium 2.4 1.6 - 2.6 mg/dL MAIN LAB Specimen Blood Performing Organization Address [facility] Ph one Number MAIN LAB [address] [place] [address] * BASIC METABOLIC PANEL (03/18/2020 9:45 AM CDT) Pathologist [facility] Sodium 148 (H) 137 - 147 MMOL/L MAIN LAB Potassium 4.1 3.5 - 5.1 MMOL/L MAIN LAB Chloride 112 (H) 98 - 110 MMOL/L [facility] CO2 28 21 - 30 MMOL/L [facility] Anion Gap 8 3 - 12 [facility] Glucose 102 (H) 70 - 100 MG/DL MAIN LAB Blood Urea 39 (H) 7 - 25 MG/DL MAIN LAB Nitrogen Creatinine 1.31 (H) 0.4 - 1.24 MG/DL [facility] Calcium 8.4 (L) 8.5 - 10.6 MG/DL MAIN LAB eGFR Non 56 (L) >60 mL/min MAIN LAB Comment: [place] The eGFR is not validated f or use in drug dosing adjustments. Continue to use estimated creatinine clearance per dosing reference text. Please contact the Clinical Pharmacist for questions. eGFR >60 >60 mL/min MAIN LAB [place] Comment: The eGFR is not validated for use in drug dosing adjustments. Continue to use estimated creatinine clearance per dosing reference text. Please contact the Clinical Pharmacist for questions. Specimen Blood Performing Organization Address City/State/Zipcode Ph one Number [facility] [address] [place] [address] * 2D + DOPPLER ECHO (03/18/2020 7:27 AM CDT) IVS 1.14 0.6 - 1.0 cm OTHER [...] OTHER OUTSIDE Mass Index LAB Cardiology Siemens [id number] OTHER OUTSIDE Ultrasound LAB Machine Referring [place] Bauer OTHER OUTSIDE Provider LAB CV ECHO PV Floor RN OTHER OUTSIDE SEWING TRIMMER LAB ECHO EF 60 % OTHER OUTSIDE [...] pericardial effusion is seen. Performing Organization Address City/State/[facility] Ph one Number OTHER OUTSIDE LAB * BLOOD GASES, ARTERIAL (03/18/2020 7:25 AM CDT) pH-Arterial 7.43 7.35 - 7.45 [facility] pCO2-Arterial 39 35 - 45 MMHG [facility] pO2-Arterial 96 80 - 100 MMHG [facility] Base 1.9 MMOL/L [facility] Excess-Arterial O2 Sat-Arterial 97.4 95 - 99 % [facility] Bicarbonate-ART 26.0 21 - 28 MMOL/L [facility] -Won Specimen Blood, arterial - Blood Performing Organization Address City/State/[facility] Ph one Number [facility] [address] [place] [address] * CHEST SINGLE VIEW (03/18/2020 5:23 AM CDT) Specimen Impressions Performed At 1. Support devices as discussed. [facility] RESULTS 2. Decrease in now small to moderate bilateral pleural effusions with improvement in patchy pulmonary edema. 3. Improved aeration of the lung base s with persistent consolidation of the medial left lung base. By my electronic signature, I attest th at I have personally reviewed the images for this examination and formulated the interpretations and opinions expressed in this report Finalized by Noe Amezquita M.D. on 2019 9:57 AM. Dictated by Siva Miller M.D. on 03/18/2020 8:03 AM. Narrative Performed At CHEST SINGLE VIEW [facility] RESULTS Clinical Indication: Male, 59 years old . Volume overload Comparison: CT chest 03/16/2020; chest r adiograph 03/16/2020 Findings: The patient is rotated to the left on e xamination. Endotracheal tube, right IJ central ankit ous catheter, nasogastric gastric tube remain in place. The cardiomediastinal silhouette is wit hin normal limits. There is no pulmonary vascular congestion. Improving aeration of the mid to lower lungs with persistent consolidation of the medial left lung base. Improving pulmonary edema. Decrease in small to moderate bi lateral pleural effusions. No pneumothorax. Surgical clips project ov er the left upper quadrant of the abdomen. Procedure Note Interface, Radiant Results - 03/18/2020 10:00 AM CDT CHEST SINGLE VIEW Clinical Indication: Male, 59 years old. Volume overload Comparison: CT chest 03/16/2020; chest radiograph 03/16/2020 Findings: The patient is rotated to the left on examination. Endotracheal tube, right IJ central venous catheter, nasogastric gastric tube remain in place. The cardiomediastinal silhouette is within normal limits. There is no pulmonary vascular congestion. Improving aeration of the mid to lower lungs with persistent consolidation of the medial left lung base. Improving pulmonary edema. Decrease in small to moderate bilateral pleural effusions. No pneumothorax. Surgical clips project over the left upper quadrant of the abdomen. IMPRESSION 1. Support devices as discussed. 2. Decrease in now small to moderate bi lateral pleural effusions with improvement in patchy pulmonary edema. 3. Improved aeration of the lung bases with persistent consolidation of the medial left lung base. By my electronic signature, I attest that I have personally reviewed the images for this examination and formulated the interpretations and opinions expressed in this report Finalized by Noe Amezquita M.D. on 03/18/2020 9:57 AM. Dictated by Siva Miller M.D. on 03/18/2020 8:03 AM. Performing Organization Address City/State/Zipcode Ph one Number [facility] RESULTS * MAGNESIUM (03/18/2020 4:30 AM CDT) Magnesium 2.4 1.6 - 2.6 mg/dL [facility] Specimen Blood Performing Organization Address City/[facility] Ph one Number MAIN LAB [address] [place] [address] * COMPREHENSIVE METABOLIC PANEL (03/18/2020 4:30 AM CDT) Sodium 146 137 - 147 MMOL/L [facility] Potassium 4.1 3.5 - 5.1 MMOL/L [facility] Chloride 113 (H) 98 - 110 MMOL/L [facility] Glucose 112 (H) 70 - 100 MG/DL [facility] Blood Urea 38 (H) 7 - 25 MG/DL [facility] Nitrogen Creatinine 1.17 0.4 - 1.24 MG/DL [facility] Calcium 8.1 (L) 8.5 - 10.6 MG/DL [facility] Total Protein 5.1 (L) 6.0 - 8.0 G/DL [facility] Total Bilirubin 0.4 0.3 - 1.2 MG/DL [facility] Albumin 2.8 (L) 3.5 - 5.0 G/DL [facility] Alk Phosphatase 65 25 - 110 U/L [facility] AST (SGOT) 17 7 - 40 U/L [facility] CO2 27 21 - 30 MMOL/L [facility] ALT (SGPT) 21 7 - 56 U/L [facility] Anion Gap 6 3 - 12 [facility] eGFR Non >60 >60 mL/min [facility] Comment: [place] The eGFR is not validated f or use in drug dosing adjustments. Continue to use estimated creatinine clearance per dosing reference text. Please contact the Clinical Pharmacist for questions. eGFR >60 >60 mL/min [facility] [place] Comment: The eGFR is not validated for use in drug dosing adjustments. Continue to use estimated creatinine clearance per dosing reference text. Please contact the Clinical Pharmacist for questions. Specimen Blood Performing Organization Address [facility] Ph one Number [facility] [address] [place] [id number] * CBC AND DIFF (03/18/2020 4:30 AM CDT) White Blood 17.4 (H) 4.5 - 11.0 K/UL [facility] Cells RBC 4.57 4.4 - 5.5 M/UL [facility] Hemoglobin 12.9 (L) 13.5 - 16.5 GM/DL [facility] Hematocrit 37.9 (L) 40 - 50 % [facility] MCV 83.1 80 - 100 FL [facility] MCH 28.4 26 - 34 PG [facility] MCHC 34.1 32.0 - 36.0 G/DL [facility] RDW 15.4 (H) 11 - 15 % [facility] Platelet Count 407 (H) 150 - 400 K/UL [facility] MPV 8.2 7 - 11 FL [facility] Neutrophils 87 (H) 41 - 77 % [facility] Lymphocytes 5 (L) 24 - 44 % [facility] Monocytes 8 4 - 12 % [facility] Eosinophils 0 0 - 5 % [facility] Basophils 0 0 - 2 % [facility] Absolute 15.23 (H) 1.8 - 7.0 K/UL [facility] Neutrophil Count Absolute Lymph 0.78 (L) 1.0 - 4.8 K/UL [facility] Count Absolute 1.37 (H) 0 - 0.80 K/UL [facility] Monocyte Count Absolute 0.03 0 - 0.45 K/UL [facility] Eosinophil Count Absolute 0.04 0 - 0.20 K/UL [facility] Basophil Count Specimen Blood Performing Organization Address City/[facility] Ph one Number [facility] [address] [place] [address] * BASIC METABOLIC PANEL (03/18/2020 1:38 AM CDT) Sodium 147 137 - 147 MMOL/L [facility] Potassium 4.2 3.5 - 5.1 MMOL/L [facility] Chloride 113 (H) 98 - 110 MMOL/L [facility] CO2 25 21 - 30 MMOL/L [facility] Anion Gap 9 3 - 12 [facility] Glucose 102 (H) 70 - 100 MG/DL [facility] Blood Urea 38 (H) 7 - 25 MG/DL [facility] Nitrogen Creatinine 1.14 0.4 - 1.24 MG/DL [facility] Calcium 8.2 (L) 8.5 - 10.6 MG/DL MAIN LAB eGFR Non >60 >60 mL/min MAIN LAB Comment: [place] The eGFR is not validated f or use in drug dosing adjustments. Continue to use estimated creatinine clearance per dosing reference text. Please contact the Clinical Pharmacist for questions. eGFR >60 >60 mL/min MAIN LAB [place] Comment: The eGFR is not validated for use in drug dosing adjustments. Continue to use estimated creatinine clearance per dosing reference text. Please contact the Clinical Pharmacist for questions. Specimen Blood Performing Organization Address City/[facility] Ph one Number MAIN LAB [address] [place] [address] * BNP (B-TYPE NATRIURETIC PEPTI) (03/18/2020 1:38 AM CDT) B Type 548.0 (H) 0 - 100 PG/ML MAIN LAB Natriuretic Peptide Specimen Blood Performing Organization Address [facility] Ph one Number MAIN LAB [address] [place] [address] * MAGNESIUM (03/18/2020 1:38 AM CDT) Magnesium 2.5 1.6 - 2.6 mg/dL MAIN LAB Specimen Blood Performing Organization Address [facility] Ph one Number MAIN LAB [address] [place] [address] * CULTURE-BLOOD W/SENSITIVITY (03/17/2020 10:00 PM CDT) Battery Name BLOOD CULTURE MAIN LAB Specimen BLOOD MAIN LAB Description LEFT RADIAL Special NONE MAIN LAB Requests Culture NO GROWTH 5 DAYS MAIN LAB Report Status FINAL MAIN LAB 03/24/2020 Specimen Blood Performing Organization Address City/[facility]/Zipcode Ph one Number MAIN LAB [address] [place] [address] * CULTURE-BLOOD W/SENSITIVITY (03/17/2020 10:00 PM CDT) Battery Name BLOOD CULTURE MAIN LAB Specimen BLOOD MAIN LAB Description RIGHT IJ WHT Special NONE [facility] MAIN LAB Requests Culture NO GROWTH 5 DAYS [facility] MAIN LAB Report Status FINAL MAIN LAB 03/24/2020 Specimen Blood Performing Organization Address [facility] one Number MAIN LAB [address] [place] [address] * MAGNESIUM (03/17/2020 1:24 PM CDT) Magnesium 2.4 1.6 - 2.6 mg/dL MAIN LAB Specimen Blood Performing Organization Address [facility] one Number MAIN LAB [address] [place] [phone] * BASIC METABOLIC PANEL (03/17/2020 1:24 PM CDT) Sodium 147 137 - 147 MMOL/L MAIN LAB Potassium 3.9 3.5 - 5.1 MMOL/L MAIN LAB Chloride 114 (H) 98 - 110 MMOL/L MAIN LAB CO2 24 21 - 30 MMOL/L KU MAIN LAB Anion Gap 9 3 - 12 MAIN LAB Glucose 100 70 - 100 MG/DL MAIN LAB Blood Urea 39 (H) 7 - 25 MG/DL MAIN LAB Nitrogen Creatinine 1.32 (H) 0.4 - 1.24 MG/DL MAIN LAB Calcium 8.3 (L) 8.5 - 10.6 MG/DL MAIN LAB eGFR Non 55 (L) >60 mL/min MAIN LAB Comment: Albanian The eGFR is not validated f or use in drug dosing adjustments. Continue to use estimated creatinine clearance per dosing reference text. Please contact the Clinical Pharmacist for questions. eGFR >60 >60 mL/min MAIN LAB Albanian Comment: The eGFR is not validated for use in drug dosing adjustments. Continue to use estimated creatinine clearance per dosing reference text. Please contact the Clinical Pharmacist for questions. Specimen Blood Performing Organization Address [facility] one Number MAIN LAB [address] [place] [address] * BLOOD GASES, ARTERIAL (03/17/2020 8:50 AM CDT) pH-Arterial 7.47 (H) 7.35 - 7.45 KU MAIN LAB pCO2-Arterial 32 (L) 35 - 45 MMHG KU MAIN LAB pO2-Arterial 102 (H) 80 - 100 MMHG KU MAIN LAB Base 0.2 MMOL/L KU MAIN LAB Excess-Arterial O2 Sat-Arterial 97.9 95 - 99 % KU MAIN LAB Bicarbonate-ART 24.6 21 - 28 MMOL/L KU MAIN LAB -Won Specimen Blood, arterial - Blood Performing Organization Address [facility] Ph one Number MAIN LAB [address] [place] [address] * PROCALCITONIN (03/17/2020 2:50 AM CDT) Pathologist [facility] Procalcitonin 0.44 (H) <0.11 ng/mL MAIN LAB Specimen Performing Organization Address [facility] Ph one Number MAIN LAB [address] [place] [address] * MAGNESIUM (03/17/2020 2:50 AM CDT) Pathologist [facility] Magnesium 2.4 1.6 - 2.6 mg/dL MAIN LAB Specimen Blood Performing Organization Address [facility] Ph one Number MAIN LAB [address] [place] [address] * COMPREHENSIVE METABOLIC PANEL (03/17/2020 2:50 AM CDT) Pathologist [facility] Sodium 143 137 - 147 MMOL/L KU MAIN LAB Potassium 4.1 3.5 - 5.1 MMOL/L KU MAIN LAB Chloride 113 (H) 98 - 110 MMOL/L KU MAIN LAB Glucose 101 (H) 70 - 100 MG/DL KU MAIN LAB Blood Urea 36 (H) 7 - 25 MG/DL KU MAIN LAB Nitrogen Creatinine 1.10 0.4 - 1.24 MG/DL KU MAIN LAB Calcium 7.9 (L) 8.5 - 10.6 MG/DL KU MAIN LAB Total Protein 4.8 (L) 6.0 - 8.0 G/DL KU MAIN LAB Total Bilirubin 0.4 0.3 - 1.2 MG/DL KU MAIN LAB Albumin 2.7 (L) 3.5 - 5.0 G/DL KU MAIN LAB Alk Phosphatase 61 25 - 110 U/L KU MAIN LAB AST (SGOT) 14 7 - 40 U/L KU MAIN LAB CO2 24 21 - 30 MMOL/L KU MAIN LAB ALT (SGPT) 18 7 - 56 U/L KU MAIN LAB Anion Gap 6 3 - 12 KU MAIN LAB eGFR Non >60 >60 mL/min KU MAIN LAB Comment: [place]ian The eGFR is not validated f or use in drug dosing adjustments. Continue to use estimated creatinine clearance per dosing reference text. Please contact the Clinical Pharmacist for questions. eGFR >60 >60 mL/min KU MAIN LAB Albanian Comment: The eGFR is not validated for use in drug dosing adjustments. Continue to use estimated creatinine clearance per dosing reference text. Please contact the Clinical Pharmacist for questions. Specimen Blood Performing Organization Address City/State/Zipcode Ph one Number KU MAIN LAB [address] [place] [address] * CBC AND DIFF (03/17/2020 2:50 AM CDT) White Blood 22.9 (H) 4.5 - 11.0 K/UL KU MAIN LAB Cells RBC 4.33 (L) 4.4 - 5.5 M/UL KU MAIN LAB Hemoglobin 12.3 (L) 13.5 - 16.5 GM/DL KU MAIN LAB Hematocrit 35.5 (L) 40 - 50 % KU MAIN LAB MCV 82.0 80 - 100 FL KU MAIN LAB MCH 28.3 26 - 34 PG [facility]U MAIN LAB MCHC 34.6 32.0 - 36.0 G/DL KU MAIN LAB RDW 15.6 (H) 11 - 15 % KU MAIN LAB Platelet Count 374 150 - 400 K/UL KU MAIN LAB MPV 8.2 7 - 11 FL K[facility] MAIN LAB Neutrophils 89 (H) 41 - 77 % KU MAIN LAB Lymphocytes 2 (L) 24 - 44 % KU MAIN LAB Monocytes 9 4 - 12 % KU MAIN LAB Eosinophils 0 0 - 5 % [facility] MAIN LAB Basophils 0 0 - 2 % KU MAIN LAB Absolute 20.48 (H) 1.8 - 7.0 K/UL KU MAIN LAB Neutrophil Count Absolute Lymph 0.35 (L) 1.0 - 4.8 K/UL KU MAIN LAB Count Absolute 2.00 (H) 0 - 0.80 K/UL KU MAIN LAB Monocyte Count Absolute 0.00 0 - 0.45 K/UL KU MAIN LAB Eosinophil Count Absolute 0.05 0 - 0.20 K/UL KU MAIN LAB Basophil Count Specimen Blood Performing Organization Address City/State/Zipcode Ph one Number KU MAIN LAB [address] [place] [address] * CT ABD/PELV WO CONTRAST (03/16/2020 9:43 [...] on 03/16/2020 9:43 PM. Performing Organization Address [facility] Ph one Number RAD RESULTS * VANCOMYCIN TIMED LEVEL (03/16/2020 8:07 PM CDT) Pathologist [facility] Vancomycin 14.1 MCG/ML MAIN LAB Random Specimen Blood Performing Organization Address [facility] Ph one Number MAIN LAB [address] [place] [address] * LACTIC ACID (BG - RAPID LACTATE) (03/16/2020 8:07 PM CDT) Pathologist [facility] Lactic Acid,BG 1.7 0.5 - 2.0 MMOL/L MAIN LAB Specimen Blood Performing Organization Address [facility] Ph one Number MAIN LAB [address] [place] [address] * URINALYSIS, MICROSCOPIC (03/16/2020 5:30 PM CDT) WBCs,UA 20-50 0 - 2 /HPF KU MAIN LAB RBCs,UA PACKED 0 - 3 /HPF KU MAIN LAB Specimen Urine - Urine Performing Organization Address [facility] Ph one Number MAIN LAB [address] [place] [address] * URINALYSIS DIPSTICK (03/16/2020 5:30 PM CDT) Color,UA YELLOW KU MAIN LAB Turbidity,UA CLEAR CLEAR-CLEAR KU MAIN LAB Specific 1.029 1.003 - 1.035 MAIN LAB Pixley-Urine pH,UA 6.0 5.0 - 8.0 MAIN LAB Protein,UA 2+ (A) NEG-NEG MAIN LAB Glucose,UA NEG NEG-NEG MAIN LAB Ketones,UA NEG NEG-NEG K[facility] MAIN LAB Bilirubin,UA NEG NEG-NEG MAIN LAB Blood,UA 3+ (A) NEG-NEG MAIN LAB Urobilinogen,UA NORMAL NORM-NORMAL MAIN LAB Nitrite,UA NEG NEG-NEG MAIN LAB Leukocytes,UA TRACE (A) NEG-NEG MAIN LAB Urine Ascorbic NEG NEG-NEG MAIN LAB Acid, UA Specimen Urine - Urine Performing Organization Address [facility] Ph one Number MAIN LAB [address] [place] [address] * TRIGLYCERIDE (03/16/2020 5:26 PM CDT) Triglycerides 145 <150 MG/DL KU MAIN LAB Specimen Performing Organization Address [facility] Ph one Number MAIN LAB [address] [place] [address] * LIPASE (03/16/2020 5:26 PM CDT) Lipase 4 (L) 11 - 82 U/L MAIN LAB Specimen Blood Performing Organization Address [facility] Ph one Number MAIN LAB [address] [place] [address] * BNP (B-TYPE NATRIURETIC PEPTI) (03/16/2020 5:26 PM CDT) B Type 645.0 (H) 0 - 100 PG/ML MAIN LAB Natriuretic Peptide Specimen Blood Performing Organization Address [facility] Ph one Number MAIN LAB [address] [place] [address] * PHOSPHORUS (03/16/2020 5:26 PM CDT) Pathologist [facility] Phosphorus 3.1 2.0 - 4.5 MG/DL KU MAIN LAB Specimen Blood Performing Organization Address [facility] Ph one Number MAIN LAB [address] [place] [address] * MAGNESIUM (03/16/2020 5:26 PM CDT) Pathologist [facility] Magnesium 2.3 1.6 - 2.6 mg/dL KU MAIN LAB Specimen Blood Performing Organization Address [facility] Ph one Number MAIN LAB [address] [place] [address] * BLOOD GASES, ARTERIAL (03/16/2020 5:26 PM CDT) Pathologist [facility] pH-Arterial 7.40 7.35 - 7.45 KU MAIN LAB pCO2-Arterial 36 35 - 45 MMHG KU MAIN LAB pO2-Arterial 64 (L) 80 - 100 MMHG KU MAIN LAB Base 1.7 MMOL/L KU MAIN LAB Deficit-Arteria l O2 Sat-Arterial 90.2 (L) 95 - 99 % K[facility] MAIN LAB Bicarbonate-ART 22.8 21 - 28 MMOL/L KU MAIN LAB -Won Specimen Blood, arterial - Blood Performing Organization Address [facility] Ph one Number MAIN LAB [address] [place] [address] * COMPREHENSIVE METABOLIC PANEL (03/16/2020 5:26 PM CDT) Pathologist [facility] Sodium 141 137 - 147 MMOL/L K[facility] MAIN LAB Potassium 4.2 3.5 - 5.1 MMOL/L K[facility] MAIN LAB Chloride 113 (H) 98 - 110 MMOL/L K[facility] MAIN LAB Glucose 136 (H) 70 - 100 MG/DL K[facility] MAIN LAB Blood Urea 31 (H) 7 - 25 MG/DL K[facility] MAIN LAB Nitrogen Creatinine 0.97 0.4 - 1.24 MG/DL K[facility] MAIN LAB Calcium 7.8 (L) 8.5 - 10.6 MG/DL KU MAIN LAB Total Protein 4.6 (L) 6.0 - 8.0 G/DL K[facility] MAIN LAB Total Bilirubin 0.3 0.3 - 1.2 MG/DL KU MAIN LAB Albumin 2.7 (L) 3.5 - 5.0 G/DL MAIN LAB Alk Phosphatase 66 25 - 110 U/L K[facility] MAIN LAB AST (SGOT) 13 7 - 40 U/L [facility] MAIN LAB CO2 21 21 - 30 MMOL/L MAIN LAB ALT (SGPT) 16 7 - 56 U/L MAIN LAB Anion Gap 7 3 - 12 MAIN LAB eGFR Non >60 >60 mL/min MAIN LAB Comment: Albanian The eGFR is not validated f or use in drug dosing adjustments. Continue to use estimated creatinine clearance per dosing reference text. Please contact the Clinical Pharmacist for questions. eGFR >60 >60 mL/min MAIN LAB Albanian Comment: The eGFR is not validated for use in drug dosing adjustments. Continue to use estimated creatinine clearance per dosing reference text. Please contact the Clinical Pharmacist for questions. Specimen Blood Performing Organization Address [facility] one Number MAIN LAB [address] [place] [address] * PTT (APTT) (03/16/2020 5:26 PM CDT) APTT 20.7 (L) 24.0 - 36.[address] [facility] LAB Specimen Blood Performing Organization Address [facility] one Number MAIN LAB [address] [place] [id number] * PROTIME INR (PT) (03/16/2020 5:26 PM CDT) Pathologist [facility] INR 1.3 (H) 0.8 - 1.2 [facility] LAB Specimen Blood Performing Organization Address [facility] one Number MAIN LAB [address] [place] [address] * CBC AND DIFF (03/16/2020 5:26 PM CDT) White Blood 22.9 (H) 4.5 - 11.0 K/UL MAIN LAB Cells RBC 4.41 4.4 - 5.5 M/UL MAIN LAB Hemoglobin 12.2 (L) 13.5 - 16.5 GM/DL MAIN LAB Hematocrit 36.5 (L) 40 - 50 % MAIN LAB MCV 82.6 80 - 100 FL MAIN LAB MCH 27.7 26 - 34 PG MAIN LAB MCHC 33.5 32.0 - 36.0 G/DL MAIN LAB RDW 15.3 (H) 11 - 15 % KU MAIN LAB Platelet Count 382 150 - 400 K/UL K[facility] MAIN LAB MPV 8.3 7 - 11 FL K[facility] MAIN LAB Neutrophils 93 (H) 41 - 77 % K[facility] MAIN LAB Lymphocytes 1 (L) 24 - 44 % K[facility] MAIN LAB Monocytes 5 4 - 12 % K[facility] MAIN LAB Eosinophils 0 0 - 5 % K[facility] MAIN LAB Basophils 1 0 - 2 % K[facility] MAIN LAB Absolute 21.37 (H) 1.8 - 7.0 K/UL KU MAIN LAB Neutrophil Count Absolute Lymph 0.24 (L) 1.0 - 4.8 K/UL KU MAIN LAB Count Absolute 1.12 (H) 0 - 0.80 K/UL KU MAIN LAB Monocyte Count Absolute 0.00 0 - 0.45 K/UL KU MAIN LAB Eosinophil Count Absolute 0.16 0 - 0.20 K/UL KU MAIN LAB Basophil Count Specimen Blood Performing Organization Address [facility] one Number MAIN LAB [address] [place] [address] * CULTURE-BLOOD W/SENSITIVITY (03/16/2020 5:24 PM CDT) Battery Name BLOOD CULTURE KU MAIN LAB Specimen BLOOD [facility] MAIN LAB Description RIGHT RADIAL ARTERIAL LINE Special NONE KU MAIN LAB Requests Culture NO GROWTH 5 DAYS KU MAIN LAB Report Status FINAL [facility] MAIN LAB 03/22/2020 Specimen Blood Performing Organization Address [facility] Ph one Number MAIN LAB [address] [place] [address] * CULTURE-RESP,LOWER W/SENSITIVITY (03/16/2020 4:55 PM CDT) Battery Name LOWER RESP CULTURE KU MAIN LAB Specimen TRACHEAL ASPIRATE K[facility] MAIN LAB Description Special NONE K[facility] MAIN LAB Requests Direct Gram LESS THAN 10/LPF KU MAIN LAB Stain NEUTROPHILS LESS THAN 10/LPF SQUAMOUS EPITHELIAL CELLS NO ORGANISMS SEEN Culture Light growth KU MAIN LAB NO SIGNIFICANT OLIVER Report Status FINAL KU MAIN LAB 03/18/2020 Specimen Tracheal Aspirate Performing Organization Address [facility] Ph one Number MAIN LAB [address] [place] [address] * GRAM STAIN (03/16/2020 4:55 PM CDT) Battery Name GRAM STAIN KU MAIN LAB Specimen TRACHEAL ASPIRATE KU MAIN LAB Description Special NONE KU MAIN LAB Requests Gram Stain LESS THAN 10/LPF KU MAIN LAB NEUTROPHILS LESS THAN 10/LPF SQUAMOUS EPITHELIAL CELLS NO ORGANISMS SEEN Report Status FINAL [facility] MAIN LAB 03/16/2020 Specimen Tracheal Aspirate Performing Organization Address City/[facility]/Zipcode Ph one Number MAIN LAB [address] [place] [address] * CULTURE-BLOOD W/SENSITIVITY (03/16/2020 3:26 PM CDT) Battery Name BLOOD CULTURE KU MAIN LAB Specimen BLOOD [facility] MAIN LAB Description RIGHT IJ RED LUMEN Special NONE [facility] MAIN LAB Requests Culture POSITIVE SMEAR: K[facility] MAIN LAB GRAM POSITIVE COCCI RESEMBLING STAPHYLOCOCCI one bottle only CRITICAL VALUE CALLED TO AND READ BACK BY/TIME/TECH Ines hyman 1703 03/17/20 by AM STAPHYLOCOCCUS, COAGULASE NEGATIVE , probable contamination. Susceptibility performed only by special request. 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 Performing Organization Address City/State/Zipcode Ph one Number OTHER OUTSIDE LAB documented in this encounter Visit Diagnoses Diagnosis Sepsis due to Escherichia coli with enc ephalopathy without septic shock ([facility]) Chest pain on breathing Painful respiration Paroxysmal A-fib ([facility]) Atrial fibrillation Type 2 NSTEMI (non-ST elevated myocardi al infarction) ([facility]) Acute myocardial infarction, subendocar dial infarction, episode of care unspecified Septic shock ([facility]) Unspecified septicemia E. coli sepsis ([facility]) Other septicemia due to gram-negative o rganism documented in this encounter Administered Medications Action Date Dose Rate Site Medication Order MAR Action 03/24/2020 10:29 PM CDT 650 mg acetaminophen (TYLENOL) tablet 650 mg Given 650 mg, Oral, EVERY 4 HOURS PRN, Starting 03/24/20 at 1359, Until Jenny 03/28/20 at 1659, Pain non-opioid: may be used alone or in combination with opioi d analgesia, TOTAL ACETAMINOPHEN DOSE NOT TO EXCEED 4GM DAILY, 03/19/2020 12:54 PM CDT 12 mg adenosine (ADENOCARD) syringe 12 mg Given 12 mg, Intravenous, ONCE, 1 dose, Wed03/19/20 at 1345 03/19/2020 12:52 PM CDT 6 mg adenosine (ADENOCARD) syringe 6 mg Given 6 mg, Intravenous, ONCE, 1 dose, Wed03/19/20 at 1345 03/18/2020 5:35 PM CDT 6 mg ADENOSINE 3 MG/ML IV SYRG (Cabinet Given Override) NOW, 1 dose, Wed03/18/20 at 1745, Created by cabinet override, Created by cabinet override, 03/27/2020 8:37 AM CDT 50 mg aminophylline injection 50 mg Given 50 mg, Intravenous, NEEDED, Starting Wed03/27/20 at 0741, Until Wed03/27/20 at 1940, Other..., Shortness of breath or bronchospasm, IV push slowly over 2-3 minutes if shortness of breath or bronchospasm occurs. Reassess in 10 minutes, if symptoms persists despite stopping regadenoson infusion or if the patient has abdominal pain/GI symptoms. Repeat aminophyline 50mg., MAC Procedur e Area Only - Medications 03/18/2020 4:10 AM CDT 150 mg 600 mL/hr amiodarone (CORDARONE) 150 mg in Given dextrose 5% (D5W) 100 mL IVPB (load) 150 mg, Intravenous, 100 mL, Administer over 10 Minutes, ONCE, 1 dose, Wed03/18/20 at 0400, SPECIAL TUBING REQUIRED Bolus Dose, 03/18/2020 6:22 PM CDT 150 mg 600 mL/hr amiodarone (CORDARONE) 150 mg in Given dextrose 5% (D5W) 100 mL IVPB (load) 150 mg, Intravenous, 100 mL, Administer over 10 Minutes, ONCE, 1 dose, Wed03/18/20 at 1830, SPECIAL TUBING REQUIRED Bolus Dose, 03/21/2020 1:04 PM CDT 0.5 mg/min 17 mL/hr amiodarone (CORDARONE) 360 mg in Given - New dextrose, iso-osm 200 mL infusion Bag 0.5-1 mg/min (16.6667-33.3333 mL/hr, rounded to 17-33 mL/hr) 200 mL, at 17-33 mL/hr, Intravenous, TITRATE DIRECTED , Starting 03/18/20 at 1745, Until Jenny 03/21/20 at 1451, SPECIAL TUBING REQUIRED Std conc= 1.8mg/mL. Initiate infusion at 1mg/min for the first 6 hours, followed by 0.5mg/min maint rate., 0.5 mg/min 17 mL/hr Given - New Bag 03/21/2020 1:03 AM CDT 0.5 mg/min 17 mL/hr Dose/Rate Verify 03/20/2020 7:38 PM CDT 03/19/2020 3:27 PM CDT 200 mg amiodarone (CORDARONE) tablet 200 mg Given 200 mg, Oral, THREE TIMES DAILY, First dose on 03/16/20 at 2100, Until Discontinued 200 mg Given 03/19/2020 8:00 AM CDT 200 mg Given 03/18/2020 8:40 PM CDT 03/27/2020 9:03 PM CDT 400 mg amiodarone (CORDARONE) tablet 400 mg Given 400 mg, Oral, DAILY, First dose on Jenny 03/21/20 at 2100, Until Discontinued 400 mg Given 03/26/2020 7:46 PM CDT 400 mg Given 03/25/2020 8:22 PM CDT 03/28/2020 9:22 AM CDT 5 mg apixaban (ELIQUIS) tablet 5 mg Given 5 mg, Oral, TWICE DAILY, First dose on Jenny 03/21/20 at 2100, Until Discontinued, May crush 5 mg or 2.5 mg tablets and suspend in 60 mL of D5W followed by immediate delivery through a nasogastri c tube. No information regarding administration of suspension by mouth i s available. NOTE: This is a HIGH ALERT Medication., 5 mg Given 03/27/2020 9:03 PM CDT 5 mg Given 03/27/2020 3:54 PM CDT 03/28/2020 9:22 AM CDT 40 mg atorvastatin (LIPITOR) tablet 40 mg Given 40 mg, Oral, DAILY, First dose on 03/16/20 at 1930, Until Discontinued 40 mg Given 03/27/2020 10:17 AM CDT 40 mg Given 03/26/2020 8:35 AM CDT 03/22/2020 4:06 PM CDT 500 mg calcium carbonate (TUMS) chew tablet Given 500-1,000 mg 500-1,000 mg, Oral, ONCE, 1 dose, Wed03/22/20 at 1345, Each tab delivers 200mg elemental calcium., 03/20/2020 7:57 AM CDT 15 mL chlorhexidine gluconate (PERIDEX) 0.12 % Given solution 15 mL 15 mL, SEE ADMIN INSTRUCTIONS, TWICE DAILY, First dose on 03/17/20 at 0800, Until Discontinued, In mechanically ventilated patient, apply with swab to entire oral cavity and artificial airway. Discontinue when patient is no longer ventilated., 15 mL Given 03/19/2020 8:10 PM CDT 15 mL Given 03/19/2020 8:00 AM CDT 03/17/2020 3:04 AM CDT 0.2 mcg/kg/hr 6.4 mL/hr dexMEDEtomidine (PRECEDEX) 400 mcg/NS Infusion 100 ml IV drip (premade) Restarted 100 mL, 0.2-1 mcg/kg/hr 127.5 kg (6.375-31.875 mL/hr, rounded t o 6.4-31.9 mL/hr), at 6.4-31.9 mL/hr, Intravenous, TITRATE DIRECTED , Starting 03/16/20 at 1700, Until 03/20/20 at 1456, -Initiate at 0.2 mcg/kg/hr and maintain for 30 minutes -Titrate to keep: RASS of 0 to -2 a.) Titrate infusion in increments of 0.1 mcg/kg/hr at 5 minute intervals until goal sedation level achieved or maintenance exceeds 1.0 mcg/kg/hr b.) If HR < 60 or SBP < 100 mmHg hold for 1 0 minutes then restart at dose reduced by 0.3 mcg/kg/hr c.) Notify physician for persistent hypotension (SBP < 90 mmHg) or bradycardia (HR < 50) over 15 minute s d.) For breakthrough agitation NOTIFY PHYSICIAN and consider bolus of 1 mcg/k g over 20 min if HR and BP are acceptable . e.) Notify physician if maintenance exceeds 1 mcg/kg/hr -Taper agent continuously to lowest effective dose t o achieve desired level of sedation keeping patient calm and able to participate in care. Std conc= 4mcg/m l NOTE: For weight-based dosing, use patient dosing weight. NOTE: This is a HIGH ALERT Medication., 0.2 mcg/kg/hr 6.4 mL/hr Given - New Bag 03/16/2020 9:59 PM CDT 03/28/2020 9:22 AM CDT 120 mg dilTIAZem CD (cardIZEM CD) capsule 120 Given mg 120 mg, Oral, DAILY, First dose on Wed03/22/20 at 0900, Until Discontinued, DO NOT CRUSH., 120 mg Given 03/27/2020 10:17 AM CDT 120 mg Given 03/26/2020 8:34 AM CDT 03/20/2020 8:24 PM CDT 30 mg dilTIAZem HCL (cardIZEM) tablet 30 mg Given 30 mg, Oral, TWICE DAILY, First dose on Wed03/20/20 at 1230, Until Discontinued 30 mg Given 03/20/2020 11:40 AM CDT 03/21/2020 1:00 PM CDT 30 mg dilTIAZem HCL (cardIZEM) tablet 30 mg Given 30 mg, Oral, EVERY 6 HOURS, First dose (after last modification) on Wed03/21/20 at 1200, Until Discontinued 03/21/2020 9:29 PM CDT 60 mg dilTIAZem HCL (cardIZEM) tablet 60 mg Given 60 mg, Oral, TWICE DAILY, First dose (after last modification) on Wed03/21/20 at 1900, Until Discontinued 03/21/2020 9:05 AM CDT 130 mg Abdomen: LUQ enoxaparin (LOVENOX) injection 130 mg Given 130 mg (rounded from 127.5 mg = 1 mg/kg 127.5 kg), Subcutaneous, TWICE DAILY, First dose on Wed03/17/20 at 2100, Unti l Discontinued, For patients undergoing surgery: Consult physician in advance - - enoxaparin is an anticoagulant and may need to be held for 12hr prior to surgery or invasive procedures. NOTE: This is a HIGH ALERT Medication., 130 mg Abdominal Tissue Given 03/20/2020 8:24 PM CDT 130 mg Abdomen:LUQ Given 03/20/2020 8:00 AM CDT 03/28/2020 6:30 AM CDT 1 lozenge eucalyptus-menthol (HALLS) lozenge 1 Given lozenge 1 lozenge, Oral, EVERY 2 HOURS PRN, Starting 03/23/20 at 1801, Until Jenny 03/28/20 at 1659, Mouth/Throat Pain 1 lozenge Given 03/26/2020 4:50 PM CDT 1 lozenge Given 03/25/2020 12:57 PM CDT 03/22/2020 8:19 AM CDT 20 mg famotidine (PEPCID) injection 20 mg Given 20 mg, Intravenous, TWICE DAILY, First dose on 03/16/20 at 2100, Until Discontinued, DILUTE W/ 10ML NS OR D5W. GIVE IV PUSH OVER 2 MIN, 20 mg Given 03/21/2020 9:32 PM CDT 20 mg Given 03/21/2020 8:55 AM CDT 03/28/2020 9:22 AM CDT 20 mg famotidine (PEPCID) tablet 20 mg Given 20 mg, Oral, TWICE DAILY, First dose on Wed03/22/20 at 2100, Until Discontinued 20 mg Given 03/27/2020 9:04 PM CDT 20 mg Given 03/27/2020 10:18 AM CDT 03/22/2020 8:19 AM CDT 40 mg furosemide (LASIX) injection 40 mg Given 40 mg, 4 mL, Intravenous, ONCE, 1 dose, Wed03/22/20 at 0815, PROTECT FROM LIGHT, 03/23/2020 11:12 AM CDT 40 mg furosemide (LASIX) injection 40 mg Given 40 mg, 4 mL, Intravenous, ONCE, 1 dose, 03/23/20 at 1130, PROTECT FROM LIGHT, 03/16/2020 8:52 PM CDT 60 mg furosemide (LASIX) injection 60 mg Given 60 mg, 6 mL, Intravenous, ONCE, 1 dose, 03/16/20 at 1915, PROTECT FROM LIGHT , 03/17/2020 8:37 AM CDT 60 mg furosemide (LASIX) injection 60 mg Given 60 mg, 6 mL, Intravenous, ONCE, 1 dose, 03/17/20 at 0915, PROTECT FROM LIGHT , 03/18/2020 7:45 AM CDT 60 mg furosemide (LASIX) injection 60 mg Given 60 mg, 6 mL, Intravenous, ONCE, 1 dose, 03/18/20 at 0730, PROTECT FROM LIGHT , 03/19/2020 12:08 PM CDT 60 mg furosemide (LASIX) injection 60 mg Given 60 mg, 6 mL, Intravenous, ONCE, 1 dose, 03/19/20 at 1230, PROTECT FROM LIGHT , 03/20/2020 11:40 AM CDT 60 mg furosemide (LASIX) injection 60 mg Given 60 mg, 6 mL, Intravenous, ONCE, 1 dose, Wed03/20/20 at 1215, PROTECT FROM LIGHT, 03/21/2020 11:30 AM CDT 60 mg furosemide (LASIX) injection 60 mg Given 60 mg, 6 mL, Intravenous, ONCE, 1 dose, [facility] 03/21/20 at 1030, PROTECT FROM LIGHT, 03/28/2020 9:21 AM CDT 20 mg furosemide (LASIX) tablet 20 mg Given 20 mg, Oral, TWICE DAILY, First dose on Wed03/24/20 at 0900, Until Discontinued 20 mg Given 03/27/2020 6:08 PM CDT 20 mg Given 03/27/2020 10:17 AM CDT 03/28/2020 9:21 AM CDT 600 mg guaiFENesin LA (MUCINEX) tablet 600 mg Given 600 mg, Oral, TWICE DAILY, First dose o n Wed03/24/20 at 1500, Until Discontinued 600 mg Given 03/27/2020 9:02 PM CDT 600 mg Given 03/27/2020 10:17 AM CDT 03/20/2020 7:13 PM CDT 2.5 mg haloperidol (HALDOL) injection 2.5 mg Given 2.5 mg, Intravenous, ONCE, 1 dose, Wed03/20/20 at 2000, PROTECT FROM LIGHT Haloperidol lactate can be given IV or IM, please review route ordered by provider and the IVP med reference list if necessary. , 03/17/2020 6:57 AM CDT 5,000 Units Abdomina l Tissue heparin (porcine) PF syringe 5,000 Units Given 5,000 Units, Subcutaneous, EVERY 8 HOURS, First dose on 03/16/20 at 2200, Until Discontinued, NOTE: This is a HIGH ALERT Medication., 5,000 Units Abdominal Tissue Given 03/16/2020 10:06 PM CDT 03/28/2020 6:19 AM CDT 50 mcg levothyroxine (SYNTHROID) tablet 50 mcg Given 50 mcg, Oral, DAILY, First dose on Wed03/17/20 at 0700, Until Discontinued, Give 1 hour before a meal and 1 hour apart from other meds. If patient is receiving tube feedings, hold tube feed 1hr before and 1hr after dose., 50 mcg Given 03/26/2020 6:23 AM CDT 50 mcg Given 03/25/2020 6:00 AM CDT 03/27/2020 9:02 PM CDT 5 mg melatonin tablet 5 mg Given 5 mg, Oral, AT BEDTIME DAILY, First dos e on Wed03/26/20 at 2230, Until Discontinued 5 mg Given 03/26/2020 10:53 PM CDT 03/18/2020 4:52 AM CDT 5 mg metoprolol (LOPRESSOR) injection 5 mg Given 5 mg, Intravenous, ONCE, 1 dose, Wed03/18/20 at 0500, PROTECT FROM LIGHT, 03/18/2020 1:30 AM CDT 5 mg METOPROLOL TARTRATE 5 MG/5 ML IV SOLN Given (Cabinet Override) NOW, 1 dose, Wed03/18/20 at 0130, Created by cabinet override PROTECT FRO M LIGHT, Created by cabinet override, nitroglycerin (NITROSTAT) tablet 0.4 mg 0.4 mg, Sublingual, EVERY 5 MIN PRN, 3 doses, Starting Wed03/27/20 at 0641, Until Jenny 03/28/20 at 1659, Other..., HTN or Chest Pain, Record BP before and after administration. Notify physician if chest pain persists after 3 doses. Obtain ECG after image acquisition if needed to assure baseline status., MAC Procedure Area Only - Medications 03/28/2020 12:54 AM CDT 10 mg oxyCODONE (ROXICODONE) tablet 10 mg Given 10 mg, Oral, EVERY 12 HOURS PRN, Starting Wed03/27/20 at 1008, Until Jenny 03/28/20 at 1659, Pain PO 10 mg Given 03/27/2020 11:44 AM CDT 03/24/2020 9:13 AM CDT 5 mg oxyCODONE (ROXICODONE) tablet 5 mg Given 5 mg, Oral, EVERY 6 HOURS PRN, Startin g Wed03/22/20 at 1502, Until 03/24/20 at 1358, Pain PO 5 mg Given 03/23/2020 9:19 AM CDT 5 mg Given 03/22/2020 8:48 PM CDT 03/18/2020 7:17 AM CDT 1.5 Diluted mL perflutren lipid microspheres (DEFINITY) Given injection 1-20 Diluted mL 1-20 Diluted mL, Intravenous, ONCE PRN, 1 dose, Starting 03/18/20 at 0712, Until 03/18/20 at 0717, For Procedure, A wastewater plant civil engineer may only administer Definity through a saline lock. If IV is in use or a port, PICC, or central line is being used a nurse must administer. NOTE: This is a HIGH ALERT Medication., MAC Procedure Area Only - Medications 03/23/2020 3:31 PM CDT 3.375 g 200 mL/hr piperacillin/tazobactam (ZOSYN) 3.375 g Given - New in sodium chloride 0.9% (NS) 100 mL IVPB Bag (MB+) 3.375 g, Intravenous, at 200 mL/hr, EVERY 6 HOURS, 29 doses, First dose on 03/16/20 at 1930, Last dose on 03/23/20 at 2130 3.375 g 200 mL/hr Given - New Bag 03/23/2020 9:10 AM CDT 3.375 g 200 mL/hr Given - New Bag 03/23/2020 3:32 AM CDT 03/24/2020 2:02 AM CDT 3.375 g 200 mL/hr piperacillin/tazobactam (ZOSYN) 3.375 g Given - New in sodium chloride 0.9% (NS) 100 mL IVPB Bag (MB+) 3.375 g, Intravenous, at 200 mL/hr, ONCE, 1 dose, 03/24/20 at 0215 polyethylene glycol 3350 (MIRALAX) packet 17 g 17 g (1 packet), Oral, DAILY PRN, Starting 03/16/20 at 1829, Until Jenny 03/28/20 at 1659, Constipation PO, 8.5 GRAMS = 0.5 PACKET 17 GRAMS = 1 PACKET 34 GRAMS = 2 PACKETS, 03/17/2020 3:59 PM CDT 20 mEq potassium chloride oral solution 20 mEq Given 20 mEq, Per OG Tube, ONCE, 1 dose, [place] 03/17/20 at 1615, Give with a meal or dilute oral solution with 4 oz of water , 03/20/2020 6:45 PM CDT 40 mEq potassium chloride SR (K-DUR) tablet 40 Given mEq 40 mEq, Oral, ONCE, 1 dose, [facility] 03/20/20 at 1800, - Tablet may be dispersed in water. Place tab in 30 mL of water for 40-60 seconds. - Gently swirl until fully dispersed. If particles remain after admin, add small amount of water and admin remaining content. - DO NOT CRUSH. Tablet may be split in half. Give with meal or full glass of water, 03/21/2020 8:55 AM CDT 40 mEq potassium chloride SR (K-DUR) tablet 40 Given mEq 40 mEq, Oral, ONCE, 1 dose, [facility] 03/21/20 at 0700, - Tablet may be dispersed in water. Place tab in 30 mL of water for 40-60 seconds. - Gently swirl until fully dispersed. If particles remain after admin, add small amount of water and admin remaining content. - DO NOT CRUSH. Tablet may be split in half. Give with meal or full glass of water, 03/21/2020 9:28 PM CDT 40 mEq potassium chloride SR (K-DUR) tablet 40 Given mEq 40 mEq, Oral, ONCE, 1 dose, [facility] 03/21/20 at 1915, - Tablet may be dispersed in water. Place tab in 30 mL of water for 40-60 seconds. - Gently swirl until fully dispersed. If particles remain after admin, add small amount of water and admin remaining content. - DO NOT CRUSH. Tablet may be split in half. Give with meal or full glass of water, 03/25/2020 9:46 AM CDT 40 mEq potassium chloride SR (K-DUR) tablet 40 Given mEq 40 mEq, Oral, DAILY WITH BREAKFAST, 3 doses, First dose on 03/23/20 at 1215 , Last dose on 03/25/20 at 0800, - Tablet may be dispersed in water. Place tab in 30 mL of water for 40-60 seconds. - Gently swirl until fully dispersed. If particles remain after admin, add small amount of water and admin remaining content. - DO NOT CRUSH. Tablet may be split in half. Give with meal or full glass of water, 40 mEq Given 03/24/2020 9:13 AM CDT 40 mEq Given 03/23/2020 4:05 PM CDT 03/20/2020 11:54 AM CDT 15 mcg/kg/min 11.5 mL/hr propofol (DIPRIVAN) 10 mg/mL IV drip Dose/Rate 5-30 mcg/kg/min Verify 127.5 kg (3.825-22.95 mL/hr, rounded to 3.8-23 mL/hr) 100 mL, at 3.8-23 mL/hr, Intravenous, TITRATE DIRECTED , Starting 03/16/20 at 1700, Until 03/20/20 at 1456, Initial rate: 5 mcg/kg/min (5-50 mcg/kg/min) Titrate to keep: RASS of 0 to -2 Titrate by: 5 mcg/kg/min every 5 minutes as needed to maintain desired clinical response Call physician if maintenance exceeds 150 mcg/kg/min Tape r agent continuously to lowest effective dose to achieve desired clinical response Std conc = 10 mg/mL NOTE: This is a HIGH ALERT Medication. , 15 mcg/kg/min 11.5 mL/hr Dose/Rate Change 03/20/2020 10:50 AM CDT 20 mcg/kg/min 15.3 mL/hr Dose/Rate Change 03/20/2020 10:43 AM CDT 03/21/2020 3:52 PM CDT 25 mg QUEtiapine (SEROquel) tablet 25 mg Given 25 mg, Oral, ONCE, 1 dose, Wed03/21/20 a t 1600 03/25/2020 8:22 PM CDT 50 mg QUEtiapine (SEROquel) tablet 50 mg Given 50 mg, Per NG tube, AT BEDTIME DAILY, First dose on Wed03/21/20 at 2100, Until Discontinued 50 mg Given 03/24/2020 9:41 PM CDT 50 mg Given 03/24/2020 12:23 AM CDT 03/27/2020 8:32 AM CDT 0.4 mg regadenoson (LEXISCAN) injection 0.4 mg Given 0.4 mg, Intravenous, ONCE, 1 dose, Wed03/27/20 at 0730, Inject 0.4 mg Regadenoson IV over 10 to 15 seconds, flush with 10 mL 0.9% Sodium Chloride solution IV over 10-20 seconds., MAC Procedure Area Only - Medications 03/21/2020 9:28 PM CDT 8.8 mg senna (SENOKOT) oral syrup 8.8 mg Given 8.8 mg, Oral, TWICE DAILY, First dose o n 03/16/20 at 2100, Until Discontinued , Hold for loose stools, 8.8 mg Given 03/21/2020 8:55 AM CDT 8.8 mg Given 03/19/2020 8:00 AM CDT 03/26/2020 8:34 AM CDT 1 tablet senna (SENOKOT) tablet 1 tablet Given 1 tablet, Oral, TWICE DAILY, First dose on Wed03/22/20 at 2100, Until Discontinued, Hold for loose stools, 1 tablet Given 03/25/2020 8:22 PM CDT 1 tablet Given 03/25/2020 3:05 PM CDT 03/22/2020 4:52 PM CDT 1,000 mL 5 mL/hr SODIUM CHLORIDE 0.9 % IV SOLP (Cabinet Given - New Override) Bag NOW, 1 dose, Wed03/22/20 at 1545, Create d by cabinet override, Created by cabinet override, 03/25/2020 9:53 AM CDT 50 mg traMADoL (ULTRAM) tablet 50 mg Given 50 mg, Oral, EVERY 6 HOURS PRN, Starting 03/24/20 at 1359, Until 03/27/20 at 1009, Pain PO 03/26/2020 10:53 PM CDT 50 mg traZODone (DESYREL) tablet 50 mg Given 50 mg, Oral, AT BEDTIME PRN, Starting 03/26/20 at 2227, Until Jenny 03/28/20 at 1659, Insomnia 03/19/2020 10:18 AM CDT 1,500 mg 187 mL/hr vancomycin (VANCOCIN) 1,500 mg in sodium Given - New chloride 0.9% (NS) IVPB Bag 1,500 mg, Intravenous, 280 mL, Administer over 90 Minutes, EVERY 12 HOURS, First dose (after last modification) on 03/17/20 at 0800, Until Discontinued, Note Pharmacokineti c Monitoring: Please record infusion start time (Action= Given) and stop jackie e (Action= Completed) of dose when blood levels are drawn., 1,500 mg 187 mL/hr Given - New Bag 03/18/2020 11:46 PM CDT 1,500 mg 187 mL/hr Given - New Bag 03/18/2020 7:59 AM CDT documented in this encounter
--- OUTSIDE RECORDS SUMMARY | 2020-03-28 23:41 | XMS REPORT | Encounter Summary ---
Author Author [facility] Organization [facility] Address Unknown Phone Unavailable Care Team Providers Care Claims Support Specialist Name Role Phone Sherman Spicer MD Unavailable Reyna Bond Unavailable Unavailable Indiana Bauer APRN PCP Unavailable Encounter Details Care Team Description Date Type Department Ya Howard RN 03/05/2020 Telephone The [facility] [address] [place] [address] Social History Date Tobacco Use [...] kidneys and belly hurt. Call him at #[phone] and said to keep trying if he [...]
--- OUTSIDE RECORDS SUMMARY | 2020-03-28 23:41 | XMS REPORT | Encounter Summary ---
Author Author [facility] Organization [facility] Address Unknown Phone Unavailable Care Team Providers Care Chief Procurement Officer Name Role Phone Sherman Spicer MD Unavailable Reyna Bond Unavailable Unavailable Indiana Bauer APRN PCP Unavailable Reason for Visit * Reason Comments Medication Question pt is on HC9 Encounter Details Care Team Description Date Type Department Brandi Wolfe RN Medication Question (pt is on HC9) 02/23/2020 Telephone The [address] [address] Social History Date Tobacco Use Types Packs/Day [...] sick. He would like call back at #[phone]. documented in this encounter Plan of Treatment [...]
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
--- OUTSIDE RECORDS SUMMARY | 2020-03-28 23:41 | XMS REPORT | Encounter Summary ---
Author Author [facility] Organization [facility] Address Unknown Phone Unavailable Care Team Providers Care Scientific Illustrator Name Role Phone Sherman Spicer MD Unavailable Reyna Bond Unavailable Unavailable Indiana Bauer APRN PCP Unavailable Encounter Details Care Team Description Date Type Department 03/12/2020 [facility] [address] [address] Social History Date Tobacco Use [...] 3 mg tablet tablet by mouth daily. 03/01/2020 Miscellaneous Medical automatic 1 each 0 Supply [facility] blood pressure machine to monitor VS daily. 03/01/2020 03/27/2020 amiodarone (CORDARONE) Take two 266 tablet 0 200 mg tablet tablets by mouth twice daily for 14 days, THEN one tablet three times daily for 30 days, THEN two tablets daily for 60 days. Take with food. 03/27/2020 oxyCODONE (ROXICODONE) 10 Take 10 mg by 0 mg tablet mouth every 3-4 hours as needed for Pain documented as of this encounter Plan of [...] Associated Diag nosis GENERAL RAD CHEST Routine 03/12/2020 EXTERNAL IMAGING 12:00 AM CDT documented in this encounter Results * GENERAL RAD CHEST EXTERNAL IMAGING (03/12/2020 12:00 AM CDT) Specimen Narrative Performed At This order has been auto finalized and does not contain a result. documented in this encounter Visit Diagnoses Not on filedocumented in this encounter
--- OUTSIDE RECORDS SUMMARY | 2020-03-28 23:41 | XMS REPORT | Encounter Summary ---
Author Author [facility] Organization [facility] Address Unknown Phone Unavailable Care Team Providers Care Craft Worker Name Role Phone Sherman Spicer MD Unavailable Reyna Bond Unavailable Unavailable Indiana Bauer APRN PCP Unavailable Encounter Details Care Team Description Date Type Department Ya Howard RN 03/06/2020 Telephone The [facility] [address] [place] [address] Social History Date Tobacco Use [...] it. * Telephone Encounter - Ya Howard, GORDO - 03/06/2020 12:00 PM CDT returned call [...]
--- OUTSIDE RECORDS SUMMARY | 2020-03-28 23:41 | XMS REPORT | Encounter Summary ---
Author Author [facility] Organization [facility] Address Unknown Phone Unavailable Care Team Providers Care Psychiatric Social Worker Supervisor Name Role Phone Sherman Spicer MD Unavailable Reyna Bond Unavailable Unavailable Indiana Bauer APRN PCP Unavailable Encounter Details Care Team Description Date Type Department 03/11/2020 [facility] [address] [address] Social History Date Tobacco Use [...] Miscellaneous Medical automatic 1 each 0 Supply [facility] blood pressure machine to monitor VS daily. [...] Name Priority Date/Time Associated Diag nosis CT ABD/PEL EXTERNAL Routine 03/11/2020 IMAGING 12:05 AM CDT documented in this encounter Results * CT ABD/PEL EXTERNAL IMAGING (03/11/2020 12:05 AM CDT) Specimen Narrative Performed At This order has been auto finalized and does not contain a result. documented in this encounter Visit Diagnoses Not on filedocumented in this encounter
--- OUTSIDE RECORDS SUMMARY | 2020-03-28 23:41 | XMS REPORT | Encounter Summary ---
Author Author [facility] Organization [facility] Address Unknown Phone Unavailable Care Team Providers Care Sofa Inspector Name Role Phone Sherman Spicer MD Unavailable Reyna Bond Unavailable Unavailable Indiana Bauer APRN PCP Unavailable Encounter Details Care Team Description Date Type Department 03/13/2020 [facility] [address] [address] Social History Date Tobacco [...] Miscellaneous Medical automatic 1 each 0 Supply [facility] blood pressure machine to monitor VS daily. [...] Procedure Name Priority Date/Time Associated Diag nosis [facility] EXTERNAL IMAGING Routine 03/13/2020 12:10 AM CDT documented in this encounter Results * [facility] EXTERNAL IMAGING (03/13/2020 12:10 AM CDT) Specimen Narrative Performed At This order has been auto finalized and does not contain a result. documented in this encounter Visit Diagnoses Not on filedocumented in this encounter
--- OUTSIDE RECORDS SUMMARY | 2020-03-28 23:41 | XMS REPORT | Encounter Summary ---
Author Author [facility] Organization [facility] Address Unknown Phone Unavailable Care Team Providers Care Research Physicist Name Role Phone Sherman Spicer MD Unavailable [...]
--- OUTSIDE RECORDS SUMMARY | 2020-03-28 23:41 | XMS REPORT | Encounter Summary ---
Author Author [facility] Organization [facility] Address Unknown Phone Unavailable Care Team Providers Care Latrine Cleaner Name Role Phone Sherman Spicer MD Unavailable Reyna Bond Unavailable Unavailable Indiana Bauer APRN PCP Unavailable Encounter Details Care Team Description Date Type Department 03/13/2020 [facility] [address] [address] Social History Date Tobacco Use [...] Miscellaneous Medical automatic 1 each 0 Supply [facility] blood pressure machine to monitor VS daily. [...] Associated Diag nosis GENERAL RAD CHEST Routine 03/13/2020 EXTERNAL IMAGING 12:05 AM CDT documented in this encounter Results * GENERAL RAD CHEST EXTERNAL IMAGING (03/13/2020 12:05 AM CDT) Specimen Narrative Performed At This order has been auto finalized and does not contain a result. documented in this encounter Visit Diagnoses Not on filedocumented in this encounter
--- OUTSIDE RECORDS SUMMARY | 2020-03-28 23:41 | XMS REPORT | Encounter Summary ---
Author Author [facility] Organization [facility] Address Unknown Phone Unavailable Care Team Providers Care Help Desk Rep Name Role Phone Sherman Spicer MD Unavailable Reyna Bond Unavailable Unavailable Indiana Bauer APRN PCP Unavailable Encounter Details Care Team Description Date Type Department 03/14/2020 [facility] [address] [address] Social History Date Tobacco Use [...] Miscellaneous Medical automatic 1 each 0 Supply [facility] blood pressure machine to monitor VS daily. [...] Associated Diag nosis GENERAL RAD CHEST Routine 03/14/2020 EXTERNAL IMAGING 12:00 AM CDT documented in this encounter Results * GENERAL RAD CHEST EXTERNAL IMAGING (03/14/2020 12:00 AM CDT) Specimen Narrative Performed At This order has been auto finalized and does not contain a result. documented in this encounter Visit Diagnoses Not on filedocumented in this encounter
--- OUTSIDE RECORDS SUMMARY | 2020-03-28 23:41 | XMS REPORT | Encounter Summary ---
Author Author [facility] Organization [facility] Address Unknown Phone Unavailable Care Team Providers Care Blueprinting And Photocopy Supervisor Name Role Phone Sherman Spicer MD Unavailable Reyna Bond Unavailable Unavailable Indiana Bauer APRN PCP Unavailable Encounter Details Care Team Description Date Type Department 03/11/2020 [facility] [address] [address] Social History Date Tobacco Use [...] Miscellaneous Medical automatic 1 each 0 Supply [facility] blood pressure machine to monitor [...] Associated Diag nosis GENERAL RAD CHEST Routine 03/11/2020 EXTERNAL IMAGING 12:00 AM CDT documented in this encounter Results * GENERAL RAD CHEST EXTERNAL IMAGING (03/11/2020 12:00 AM CDT) Specimen Narrative Performed At This order has been auto finalized and does not contain a result. documented in this encounter Visit Diagnoses Not on filedocumented in this encounter
--- OUTSIDE RECORDS SUMMARY | 2020-03-28 23:41 | XMS REPORT | Encounter Summary ---
Author Author [facility] Organization [facility] Address Unknown Phone Unavailable Care Team Providers Care Grade Tamper Name Role Phone Sherman Spicer MD Unavailable Reyna Bond Unavailable Unavailable Indiana Bauer APRN PCP Unavailable Reason for Visit * Reason Comments Test/procedure PFT needed. Encounter Details Care Team Description Date Type Department Patrick Constantino RN Test/procedure (PFT needed.) 03/11/[address] Tele[address] [id number] Social History Date Tobacco Use Types Packs/Day [...] Telephone Encounter - Patrick Constantino RN - 03/14/2020 3:26 PM CDT Attempted to call phone numbers listed in chart, all are disconnected or not wor lazara. Letter mailed to pt requesting updated contact information and for pt to schedule PFT. * Telephone Encounter - Patrick Constantino RN - 03/11/2020 11:08 AM CDT Called pt and LVM to inform him of need for PFT after amio start. Pt given PFT scheduling number [phone] and advised to complete this in the [...]
--- OUTSIDE RECORDS SUMMARY | 2020-03-28 23:41 | XMS REPORT | Encounter Summary ---
Author Author [facility] Organization [facility] Address Unknown Phone Unavailable Care Team Providers Care Display Department Manager Name Role Phone Sherman Spicer MD Unavailable Reyna Bond Unavailable Unavailable Indiana Bauer APRN PCP Unavailable Encounter Details Care Team Description Date Type Department 03/16/2020 [facility] [address] [address] Social History Date Tobacco Use [...] daily. Take with food. Follow up with lawn service manager for dose adjustments 01/22/2020 apixaban (ELIQUIS) [...] Miscellaneous Medical automatic 1 each 0 Supply [facility] blood pressure machine to monitor VS [...] Associated Diag nosis GENERAL RAD CHEST Routine 03/16/2020 EXTERNAL IMAGING 10:53 AM CDT documented in this encounter Results * GENERAL RAD CHEST EXTERNAL IMAGING (03/16/2020 10:53 AM CDT) Specimen Narrative Performed At This order has been auto finalized and does not contain a result. documented in this encounter Visit Diagnoses Not on filedocumented in this encounter
--- OUTSIDE RECORDS SUMMARY | 2020-03-28 23:41 | XMS REPORT | Encounter Summary ---
Author Author [facility] Organization [facility] Address Unknown Phone Unavailable Care Team Providers Care Avionics Systems Engineer Name Role Phone Sherman Spicer MD [...] unable to return call) 02/28/2020 Telephone [facility] [address] [place] [address] Social History Date Tobacco Use [...] Said to call him in am at #[phone]. documented in this encounter Plan of Treatment [...]
--- OUTSIDE RECORDS SUMMARY | 2020-03-28 23:41 | XMS REPORT | Encounter Summary ---
Author Author [facility] Organization [facility] Address Unknown Phone Unavailable Care Team Providers Care Private Duty Lpn Name Role Phone Sherman Spicer MD Unavailable Reyna Bond Unavailable Unavailable Indiana Bauer APRN PCP Unavailable Encounter Details Care Team Description Date Type Department 03/13/2020 [facility] [address] [address] Social History Date Tobacco [...] Miscellaneous Medical automatic 1 each 0 Supply [facility] blood pressure machine to monitor VS [...] Routine 03/13/2020 EXTERNAL IMAGING 12:00 AM CDT documented in this encounter Results * GENERAL RAD CHEST EXTERNAL IMAGING (03/13/2020 12:00 AM CDT) Specimen Narrative Performed At This order has been auto finalized and does not contain a result. documented in this encounter Visit Diagnoses Not on filedocumented in this encounter
--- OUTSIDE RECORDS SUMMARY | 2020-03-28 23:41 | XMS REPORT | Encounter Summary ---
Author Author [facility] Organization [facility] Address Unknown Phone Unavailable Care Team Providers Care Supervisor Looping Name Role Phone Sherman Spicer MD Unavailable Reyna Bond Unavailable Unavailable Indiana Bauer APRN PCP Unavailable Reason for Visit * Reason Comments Follow Up unsure of reason of call, L M to c/b Encounter Details Care Team Description Date Type Department Ya Howard RN Follow Up (unsure of reason of call, LM to c/b) 03/11/2020 Telephone The [facility] [address] [place] [facility] [place] [id number] Social History Date Tobacco Use Types Packs/Day [...] out do same day. Call him at #[phone]. documented in this encounter Plan of Treatment [...]
--- OUTSIDE RECORDS SUMMARY | 2020-03-28 23:41 | XMS REPORT | Encounter Summary ---
Author Author [facility] Organization [facility] Address Unknown Phone Unavailable Care Team Providers Care Block Cableman Name Role Phone Sherman Spicer MD Unavailable StalcupReyna Unavailable Unavailable Indiana Bauer APRN PCP Unavailable Lenka Fuentes RN [phone] Unavailable Encounter Details Care Team Description Date Type Department Unknown, Unknown, 03/15/2020 Orders Only The [address] [address] Social History Date Tobacco Use Types Packs/Day [...]
--- OUTSIDE RECORDS SUMMARY | 2020-03-28 23:41 | XMS REPORT | Encounter Summary ---
Author Author [facility] Organization [facility] Address Unknown Phone Unavailable Care Team Providers Care Washer And Capper Machine Operator Name Role Phone Sherman Spicer MD Unavailable Reyna Bond Unavailable Unavailable Indiana Bauer APRN PCP Unavailable Encounter Details Care Team Description Date Type Department 03/13/2020 [facility] [address] [address] Social History Date Tobacco Use [...] Miscellaneous Medical automatic 1 each 0 Supply [facility] blood pressure machine to [...] Routine 03/13/2020 EXTERNAL IMAGING 12:15 AM CDT documented in this encounter Results * GENERAL RAD CHEST EXTERNAL IMAGING (03/13/2020 12:15 AM CDT) Specimen Narrative Performed At This order has been auto finalized and does not contain a result. documented in this encounter Visit Diagnoses Not on filedocumented in this encounter
--- OUTSIDE RECORDS SUMMARY | 2020-03-28 23:42 | XMS REPORT | Encounter Summary ---
Author Author [facility] Organization [facility] Address Unknown Phone Unavailable Care Team Providers Care Dry Cleaning Machine Operator Helper Name Role Phone Sherman Spicer MD [...]
--- OUTSIDE RECORDS SUMMARY | 2020-03-28 23:42 | XMS REPORT | Encounter Summary ---
Author Author [facility] Organization [facility] Address Unknown Phone Unavailable Care Team Providers Care Water Meter Reader Name Role Phone Sherman Spicer MD Unavailable Reyna Bond Unavailable Unavailable Indiana Bauer APRN PCP Unavailable Encounter Details Care Team Description Date Type Department 02/20/2020 [facility] [address] [address] Social History Date Tobacco Use [...] mouth daily 30 minutes before breakfast. 03/01/2020 ascorbic acid (vitamin C) Take 250 [...] daily. Indications: prevention of recurrent atrial fibrillation 03/27/2020 oxyCODONE (ROXICODONE) 10 Take 10 mg by 0 mg tablet mouth every 3-4 hours as needed for Pain 01/22/2020 03/01/2020 senna/docusate Take two 60 tablet [...]
--- OUTSIDE RECORDS SUMMARY | 2020-03-28 23:42 | XMS REPORT | Encounter Summary ---
Author Author [facility] Organization [facility] Address Unknown Phone Unavailable Care Team Providers Care Instrumentation Fitter Name Role Phone Sherman Spicer MD Unavailable Reyna Bond Unavailable Unavailable Indiana Bauer APRN PCP Unavailable Reason for Visit * Reason Comments Follow-up Phone Call Encounter Details Care Team Description Date Type Department Tsering Diehl, RN Follow-up Phone Call 02/21/2020 Telephone The [address] [place], [place] [id number] Social History Date Tobacco Use Types Packs/Day [...] would like MPE approval. He is at #[phone]. documented in this encounter Plan of Treatment [...]
--- OUTSIDE RECORDS SUMMARY | 2020-03-28 23:42 | XMS REPORT | Encounter Summary ---
Author Author [facility] Organization [facility] Address Unknown Phone Unavailable Care Team Providers Care Airplane Tester Name Role Phone Sherman Spicer MD Unavailable Reyna Bond Unavailable Unavailable Indiana Bauer APRN PCP Unavailable Reason for Visit * Reason Comments Follow-up Phone Call Encounter Details Care Team Description Date Type Department Tsering Diehl, RN Follow-up Phone Call 02/05/2020 Telephone The [address] [place], [place] [id number] Social History Date Tobacco Use Types Packs/Day [...] was in doctors office. Call him at #[phone]. documented in this encounter Plan of Treatment [...]
--- OUTSIDE RECORDS SUMMARY | 2020-03-28 23:42 | XMS REPORT | Encounter Summary ---
Author Author [facility] Organization [facility] Address Unknown Phone Unavailable Care Team Providers Care Registered Phlebotomist Part Time Name Role Phone Sherman Spicer MD Unavailable Reyna Bond Unavailable Unavailable Indiana Bauer APRN PCP Unavailable Reason for Visit * Reason Comments Anticoagulation Eliquis hold Encounter Details Care Team Description Date Type Department Noemi Hernandez RN Anticoagulation (Eliquis hold ) 02/01/[address] [facility] [address] [place] [address] Social History Date Tobacco Use [...] of mesenteric thrombosis and pulm onary embolism. [id number] score of1:Hypertension He was last see in [...] if so, how long? Call him at #[phone]. documented in this encounter Plan of Treatment [...]
--- OUTSIDE RECORDS SUMMARY | 2020-03-28 23:42 | XMS REPORT | Encounter Summary ---
Author Author [facility] Organization [facility] Address Unknown Phone Unavailable Care Team Providers Care Prize Jacker Name Role Phone Sherman Spicer MD Unavailable Reyna Bond Unavailable Unavailable Indiana Bauer APRN PCP Unavailable Reason for Visit * Reason Comments Other Encounter Details Care Team Description Date Type Department Brandi Wolfe, RN Other 02/06/2020 Telephone The [address] [place], [place] [id number] Social History Date Tobacco Use Types Packs/Day [...] I'm doing is sleeping. He is at #[phone]. documented in this encounter Plan of Treatment [...]
--- OUTSIDE RECORDS SUMMARY | 2020-03-28 23:42 | XMS REPORT | Encounter Summary ---
Author Author [facility] Organization [facility] Address Unknown Phone Unavailable Care Team Providers Care Chief Privacy Officer Name Role Phone Sherman Spicer MD [...]
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
--- OUTSIDE RECORDS SUMMARY | 2020-03-28 23:43 | XMS REPORT | Encounter Summary ---
Author Author [facility] Organization [facility] Address Unknown Phone Unavailable Care Team Providers Care Senior Net Programmer Name Role Phone Sherman Spicer MD Unavailable Reyna Bond Unavailable Unavailable Indiana Bauer APRN PCP Unavailable Encounter Details Care Team Description Date Type Department 01/17/2020 [facility] [address] [address] Social History Date Tobacco Use [...] 0 25 mcg tablet by mouth daily. 03/27/2020 oxyCODONE (ROXICODONE) 10 Take 10 mg by 0 mg tablet mouth every 3-4 hours as needed for Pain 01/20/2020 oxyCODONE/acetaminophen Take 1 tablet 0 (PERCOCET; [...] stomach. 02/02/2020 vit A-vit Take 2 0 L-lljtlg-zrhu-copper tablets by (EBKA-CXAY-MXSM(VIT mouth daily. A,C-BIOTIN)) 2,500 unit-100 mg-2,500 mcg [...]
--- OUTSIDE RECORDS SUMMARY | 2020-03-28 23:43 | XMS REPORT | Encounter Summary ---
Author Author [facility] Organization [facility] Address Unknown Phone Unavailable Care Team Providers Care Grain Oilseed Or Pasture Farm Worker Name Role Phone Sherman Spicer MD Unavailable StaReyna hudson Unavailable Unavailable Indiana Bauer APRN PCP Unavailable Reason for Visit * Reason Comments Tachycardia Encounter Details Care Team Description Date Type Department Patrick Constantino RN Tachycardia 01/24/2020 Telephone [facility] [address] [place] [address] Social History Date Tobacco Use [...] nothing that he needs [facility]. His HR is up to 110 to 116, is that too high. Call him at #[phone]. documented in this encounter Plan of Treatment [...]
--- OUTSIDE RECORDS SUMMARY | 2020-03-28 23:43 | XMS REPORT | Encounter Summary ---
Author Author [facility] Organization [facility] Address Unknown Phone Unavailable Care Team Providers Care Computer Systems Manager Name Role Phone Sherman Spicer MD [...] consulted, RRR rounding today.) 01/18/2020 Telephone [facility] [address] [place] [address] Social History Date Tobacco Use [...] by and see him. He is at #[phone]. documented in this encounter Plan of Treatment [...]
--- OUTSIDE RECORDS SUMMARY | 2020-03-28 23:43 | XMS REPORT | Encounter Summary ---
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 Performing Organization Address [facility] Ph one Number MAIN LAB [address] [place] [address] * PROTIME INR (PT) (01/22/2020 3:56 AM CDT) INR 1.1 0.8 - 1.2 MAIN LAB Specimen Blood Performing Organization Address [facility] Ph one Number MAIN LAB [address] [place] [address] * CBC AND DIFF (01/22/2020 3:56 AM CDT) Pathologist [facility] White Blood 8.9 4.5 - 11.0 K/UL MAIN LAB Cells RBC 5.20 4.4 - 5.5 M/UL KU MAIN LAB Hemoglobin 14.5 13.5 - 16.5 GM/DL KU MAIN LAB Hematocrit 43.2 40 - 50 % KU MAIN LAB MCV 83.0 80 - 100 FL KU MAIN LAB MCH 27.9 26 - 34 PG MAIN LAB MCHC 33.6 32.0 - 36.0 G/DL MAIN LAB RDW 15.2 (H) 11 - [...] Basophil Count Specimen Blood Performing Organization Address [facility] Ph one Number MAIN LAB [address] [place] [address] * PROTIME INR (PT) (01/21/2020 4:38 AM CDT) Pathologist [facility] INR 1.1 0.8 - 1.2 MAIN LAB Specimen Blood Performing Organization Address [facility] Ph one Number MAIN LAB [address] [place] [address] * MAGNESIUM (01/21/2020 4:38 AM CDT) [facility] Magnesium 2.3 1.6 - 2.6 mg/dL MAIN LAB Specimen Blood Performing Organization Address [facility] Ph one Number MAIN LAB [address] [place] [address] * COMPREHENSIVE METABOLIC PANEL (01/21/2020 4:38 AM [...] Ph one Number KU MAIN LAB [address] [place] [address] * CBC AND DIFF (01/21/2020 4:38 AM [...] Basophil Count Specimen Blood Performing Organization Address [facility] one Number MAIN LAB [address] [place] [address] * PROTIME INR (PT) (01/20/2020 9:52 AM CDT) INR 1.2 0.8 - 1.2 KU MAIN LAB Specimen Blood Performing Organization Address [facility] one Number MAIN LAB [address] [place] [address] * MAGNESIUM (01/20/2020 4:03 AM CDT) Magnesium 2.2 1.6 - 2.6 mg/dL KU MAIN LAB Specimen Blood Performing Organization Address [facility] one Number MAIN LAB [address] [place] [phone] * COMPREHENSIVE METABOLIC PANEL (01/20/2020 4:03 AM [...] Ph one Number KU MAIN LAB [address] [place] [address] * CBC AND DIFF (01/20/2020 4:03 AM [...] Basophil Count Specimen Blood Performing Organization Address [facility] one Number KU MAIN LAB [address] [place] [address] * PROTIME INR (PT) (01/19/2020 4:21 AM CDT) INR 1.2 0.8 - 1.2 KU MAIN LAB Specimen Blood Performing Organization Address [facility] one Number KU MAIN LAB [address] [place] [address] * MAGNESIUM (01/19/2020 4:21 AM CDT) Magnesium 2.0 1.6 - 2.6 mg/dL KU MAIN LAB Specimen Blood Performing Organization Address [facility] one Number KU MAIN LAB [address] [place] [address] * COMPREHENSIVE METABOLIC PANEL (01/19/2020 4:21 AM [...] for questions. Specimen Blood Performing Organization Address [facility] Ph one Number [facility] MAIN LAB [address] [place] [address] * CBC AND DIFF (01/19/2020 4:21 AM [...] Basophil Count Specimen Blood Performing Organization Address [facility] Ph one Number [facility] MAIN LAB [address] [place] [address] * POC GLUCOSE (01/18/2020 8:45 PM CDT) Glucose, POC 94 70 - 100 MG/DL KU MAIN LAB Specimen Performing Organization Address [facility] Ph one Number [facility] MAIN LAB [address] [place] [phone] * 2D + DOPPLER ECHO (01/18/2020 9:49 [...] 34 OTHER OUTSIDE Index LAB Cardiology Siemens [id number] OTHER OUTSIDE Ultrasound LAB Machine Left Ventricle [...] 2018, EF slightly improved. Performing Organization Address [facility] one Number OTHER OUTSIDE LAB * TROPONIN-I (01/18/2020 6:03 AM CDT) Troponin-I 0.08 (H) 0.0 - 0.05 NG/ML MAIN LAB Specimen Blood Performing Organization Address [facility] Ph one Number MAIN LAB [address] [place] [address] * UA REFLEX CULTURE LABEL (01/18/2020 3:50 AM CDT) Pathologist [facility] UA Reflex Criteria for reflex to culture [facility] LAB Culture are WBC>10, Positive Nitrit e, and/or >=+1 leukocytes. If quantity is not sufficient, an addendum will follow. Specimen Urine Performing Organization Address [facility] Ph one Number MAIN LAB [address] [place] [address] * URINALYSIS MICROSCOPIC REFLEX TO CULTURE (01/18/2020 3:50 AM CDT) WBCs,UA 0-2 0 - 2 /HPF MAIN LAB RBCs,UA 0-2 0 - 3 /HPF MAIN LAB Comment,UA Criteria for reflex to culture [facility] N LAB are WBC>10, Positive Nitrite, and/or >=+1 leukocytes. If quantity is not sufficient, an addendum will follow. MucousUA 2+ MAIN LAB Specimen Urine Performing Organization Address [facility] Ph one Number KU MAIN LAB [address] [place] [address] * URINALYSIS DIPSTICK REFLEX TO CULTURE (01/18/2020 3:50 AM CDT) Color,UA YELLOW KU MAIN LAB Turbidity,UA CLEAR CLEAR-CLEAR KU MAIN LAB Specific 1.019 1.003 - 1.035 KU MAIN LAB [place]-Urine pH,UA 5.0 5.0 - 8.0 KU MAIN [...] Acid, UA Specimen Urine Performing Organization Address [facility] one Number MAIN LAB [address] [place] [phone] * LIPID PROFILE (01/18/2020 3:40 AM CDT) [...] than 130 mg/dL. Specimen Performing Organization Address [facility] Ph one Number MAIN LAB [address] [place] [address] * MAGNESIUM (01/18/2020 3:40 AM CDT) Magnesium 2.1 1.6 - 2.6 mg/dL KU MAIN LAB Specimen Blood Performing Organization Address [facility] Ph one Number MAIN LAB [address] [place] [address] * COMPREHENSIVE METABOLIC PANEL (01/18/2020 3:40 AM [...] Ph one Number KU MAIN LAB [address] [place] [address] * CBC AND DIFF (01/18/2020 3:40 AM [...] LAB MPV 8.3 7 - 11 FL MAIN LAB Neutrophils 62 41 - 77 % KU MAIN LAB Lymphocytes 17 (L) 24 - 44 % KU MAIN LAB Monocytes 13 (H) 4 - 12 % KU MAIN LAB Eosinophils 8 (H) 0 - 5 % KU MAIN LAB Basophils 0 0 - 2 % MAIN LAB Absolute 6.30 1.8 - 7.0 K/UL KU MAIN LAB Neutrophil Count Absolute Lymph 1.79 1.0 - 4.8 K/UL KU MAIN LAB Count Absolute 1.31 (H) 0 - 0.80 K/UL KU MAIN LAB Monocyte Count Absolute 0.86 (H) 0 - 0.45 K/UL MAIN LAB Eosinophil Count Absolute 0.02 0 - 0.20 K/UL MAIN LAB Basophil Count Specimen Blood Performing Organization Address [facility] Ph one Number MAIN LAB [address] [place] [address] * TROPONIN-I (01/18/2020 2:05 AM CDT) Troponin-I 0.10 (H) 0.0 - 0.05 NG/ML MAIN LAB Specimen Blood Performing Organization Address [facility] one Number MAIN LAB [address] [place] [address] * HEMOGLOBIN A1C (01/18/2020 12:17 AM CDT) Hemoglobin A1C 5.6 4.0 - 6.0 % MAIN LAB Comment: The ADA recommends that most patients with type 1 and type 2 diabetes maintain an A1c level <7%. Specimen Blood Performing Organization Address [facility] Ph one Number MAIN LAB [address] [place] [address] * TROPONIN-I (01/18/2020 12:00 AM CDT) Troponin-I 0.10 (H) 0.0 - 0.05 NG/ML MAIN LAB Specimen Blood Performing Organization Address [facility] Ph one Number MAIN LAB [address] [place] [address] * CHEST 2 VIEWS (01/17/2020 11:22 PM [...] on 01/18/2020 7:00 AM. Performing Organization Address [facility] one Number KU RAD RESULTS * TSH WITH FREE T4 REFLEX (01/17/2020 10:50 PM CDT) TSH 4.61 0.35 - 5.00 MCU/ML KU MAIN LAB Specimen Blood Performing Organization Address [facility] Ph one Number MAIN LAB [address] [place] [address] * TROPONIN-I (01/17/2020 10:50 PM CDT) Troponin-I 0.10 (H) 0.0 - 0.05 NG/ML MAIN LAB Specimen Blood Performing Organization Address [facility] Ph one Number MAIN LAB [address] [place] [address] * BNP (B-TYPE NATRIURETIC PEPTI) (01/17/2020 10:50 PM CDT) B Type 292.0 (H) 0 - 100 PG/ML KU MAIN LAB Natriuretic Peptide Specimen Blood Performing Organization Address [facility] one Number KU MAIN LAB [address] [place] [address] * PHOSPHORUS (01/17/2020 10:50 PM CDT) Phosphorus 3.2 2.0 - 4.5 MG/DL KU MAIN LAB Specimen Blood Performing Organization Address [facility] one Number KU MAIN LAB [address] [place] [address] * MAGNESIUM (01/17/2020 10:50 PM CDT) Magnesium 2.1 1.6 - 2.6 mg/dL KU MAIN LAB Specimen Blood Performing Organization Address [facility] one Number KU MAIN LAB [address] [place] [address] * COMPREHENSIVE METABOLIC PANEL (01/17/2020 10:50 PM [...] for questions. Specimen Blood Performing Organization Address [facility] one Number [facility] MAIN LAB [address] [place] [address] * PTT (APTT) (01/17/2020 10:50 PM CDT) APTT 31.0 24.0 - 36.5 SEC KU MAIN LAB Specimen Blood Performing Organization Address [facility] one Number KU MAIN LAB [address] [place] [address] * PROTIME INR (PT) (01/17/2020 10:50 PM CDT) INR 1.0 0.8 - 1.2 MAIN LAB Specimen Blood Performing Organization Address [facility] one Number MAIN LAB [address] [place] [address] * CBC AND DIFF (01/17/2020 10:50 PM CDT) White Blood 11.4 (H) 4.5 - 11.0 K/UL KU MAIN LAB Cells RBC 5.28 4.4 - 5.5 M/UL KU MAIN LAB Hemoglobin 14.8 13.5 - 16.5 GM/DL KU MAIN LAB Hematocrit 44.0 40 - 50 % KU MAIN LAB MCV 83.3 80 - 100 FL KU MAIN LAB [...] Basophil Count Specimen Blood Performing Organization Address [facility] Ph one Number MAIN LAB [address] [place] [address] * TELEMETRY STRIPS-SCAN (01/17/2020 12:00 AM CDT) [...] mg, Oral, EVERY 6 HOURS PRN, Starting Wed01/17/20 at 2256, Until Wed01/22/20 at 1420, Pain non-opioid: may be used [...] mg, Oral, TWICE DAILY, First dose on Wed01/18/20 at 0600, Until Discontinued , NOTE: This is a HIGH ALERT Medication., 5 mg Given 01/21/2020 9:01 PM CDT 5 mg Given 01/21/2020 8:20 AM CDT atorvastatin (LIPITOR) tablet 40 mg 40 mg, Oral, DAILY, First dose on 01/22/20 at 0930, Until Discontinued bismuth subsalicylate (PEPTO-BISMOL) [...] on eMAR (include date & time). Notify beekeeper farmer prior to giving next dose if: QTc increase by >15% or to >500 msec, or >550 msec in patients with ventricular conduction abnormalities or ventricular pacing. , - Two hours after all subsequent doses: record QTc on eMAR (include date & time). Notify beekeeper farmer prior to giving next dose if: QTc [...] on eMAR (include date & time). Notify beekeeper farmer prior to giving next dose if: QTc increase by >15% or to >500 msec, or >550 msec in patients with ventricular conduction abnormalities or ventricular pacing. , - Two hours after all subsequent doses: record QTc on Sybil R (include date & time). Notify beekeeper farmer prior to giving next dose if: QTc [...] on eMAR (include date & time). Notify beekeeper farmer prior to giving next dose if: QTc increase by >15% or to >500 msec, or >550 msec in patients with ventricular conduction abnormalities or ventricular pacing. , - Two hours after all subsequent doses: record QTc on eMAR (include date & time). Notify beekeeper farmer prior to giving next dose if: QTc [...] on eMAR (include date & time). Notify beekeeper farmer prior to giving next dose if: QTc increase by >15% or to >500 msec, or >550 msec in patients with ventricular conduction abnormalities or ventricular pacing. , - Two hours after all subsequent doses: record QTc on Sybil R (include date & time). Notify beekeeper farmer prior to giving next dose if: QTc [...] Starting Sa t 01/20/20 at 2302, Until 01/22/20 at 1420, Insomnia 01/22/2020 8:36 AM CDT 5 mg oxyCODONE (ROXICODONE) tablet 5 mg Given 5 mg, Oral, EVERY 6 HOURS PRN, Startin g 01/17/20 at 2256, Until 01/22/20 a t 1420, Pain PO 5 mg [...] mEq, Oral, ONCE, 1 dose, [facility] 01/18/20 at 0030 01/21/2020 8:15 AM CDT 40 mEq potassium chloride SR (K-DUR) tablet 40 Given mEq 40 mEq, Oral, ONCE, 1 dose, [place] 01/21/20 at 0630, - Tablet may be [...] tablet, Oral, TWICE DAILY, First dose on Jenny 01/18/20 at 1230, Until Discontinued, Hold for loose stools, 01/21/2020 9:01 PM CDT 2 tablets senna/docusate (SENOKOT-S) tablet 2 Given tablet 2 tablet, Oral, TWICE DAILY, First dose (after last modification) on Wed01/19/20 at 2100, Until Discontinued, Hold for loose [...] HOURS PRN, Starting Wed01/19/20 at 1951, Until 01/22/20 at 1420, Nausea/Vomiting Injectable 01/22/2020 8:43 AM CDT Leg, Lef t Verification of Patch Placement and Patch/Topica Integrity - Lidocaine 5% l Verified TWICE DAILY, First dose on Wed01/21/20 a t 0900, Until Discontinued, Patch checks are required every shift to ensure the patch is still intact and in place. Please verify patch check findings summer jara MAR entry., Leg, Lower Left Patch/Topical Verified 01/21/2020 9:07 PM CDT Leg, Upper Left Patch/Topical Verified 01/21/2020 9:25 AM CDT documented in this encounter
--- OUTSIDE RECORDS SUMMARY | 2020-03-28 23:44 | XMS REPORT | Encounter Summary ---
Author Author [facility] Organization [facility] Address Unknown Phone Unavailable Care Team Providers Care Fur Coat Sewer Name Role Phone Sherman Spicer MD Unavailable Reyna Bond Unavailable Unavailable Indiana Bauer APRN PCP Unavailable Reason for Referral * CTA Procedure (Routine) Referred By Contact Referred To Contact Status Reason Specialty Diagnoses / Procedures Kelby Rodriguez MD [address] [address] New Request Radiology Diagnoses S/P ablation of atrial fibrillation Paroxysmal atrial fibrillation (HCC) Essential hypertension Acute pericarditis, unspecified type P rocedures CT CARDIAC STRUCTURE WO/W CONT * CTA Procedure (Routine) Referred By Contact Referred To Contact Status Reason Specialty Diagnoses / Procedures Kelby Rodriguez MD [address] [address] New Request Radiology Diagnoses S/P ablation of atrial fibrillation Paroxysmal atrial fibrillation (HCC) Essential hypertension Acute pericarditis, unspecified type P rocedures CT LMTD CHEST W CARDIAC Encounter Details Care Team Description Date Type Department Ya Howard RN 10/11/2019 Telephone [facility] [address] [place] [phone] Social History Date Tobacco Use Types Packs/Day [...] encounter Miscellaneous Notes * Addendum Note - Jyothi Snyder RN - 10/12/2019 2:48 PM JUNIOR ANALYST Addended by: JYOTHI SNYDER on: 10/12/2019 02:48 PM Modules accepted: Orders OR ANALYST * Telephone Encounter - Jyothi Snyder RN - 10/12/2019 2:46 PM JUNIOR ANALYST RN received notification from pre certification that 3 month post ablation CCTA denied. RN reordered CCTA with appropriate diagnoses associated. RN to reach dede k out to pre certification team to verify that CCTA will be covered/is still pedro eduled for 10/16/2019. Will remain available. GORDO Jackson. OR ANALYST * Telephone Encounter - Ya Howard RN - 10/11/2019 3:52 PM JUNIOR ANALYST returned call to David. left message that he should be done around 1 pm however, did stress that this is an estimate. offered that we could call his ride when he is close to finishing if that would help asked him to cb if further questions OR ANALYST * Telephone Encounter - Ya Howard RN - 10/11/2019 3:52 PM JUNIOR ANALYST ----- Message from Mercy Carbajal LPN sent at 10/11/2019 12:27 PM JUNIOR ANALYST ----- Regarding: MPE- RTC- he wanted to know how long his appointment will take on Wed. He is having to get a ride and needs to know. He is at # [phone]. OR ANALYST documented in this encounter Plan of Treatment [...]
--- OUTSIDE RECORDS SUMMARY | 2020-03-28 23:44 | XMS REPORT | Encounter Summary ---
Author Author [facility] Organization [facility] Address Unknown Phone Unavailable Care Team Providers Care Flue Blower Name Role Phone Sherman Spicer MD Unavailable [...]
--- OUTSIDE RECORDS SUMMARY | 2020-03-28 23:44 | XMS REPORT | Encounter Summary ---
Author Author [facility] Organization [facility] Address Unknown Phone Unavailable Care Team Providers Care [facility] Director Name Role Phone Sherman Spicer MD Unavailable Reyna Bond Unavailable Unavailable Indiana Bauer APRN PCP Unavailable Reason for Visit * Reason Comments Other post ablation ct canceled i nsurance denied Encounter Details Care Team Description Date Type Department Sally Rendon RN Other (post ablation ct canceled insuran ce denied) 10/13/2019 Telephone [facility] [address] [address] Social History Date Tobacco Use [...] Sally Rendon RN - 10/13/2019 7:51 AM NAVAL AIRCREWMAN MECHANICAL ----- Message from Rafia Snyder RN sent at 10/12/2019 3:36 PM NAVAL AIRCREWMAN MECHANICAL ----- Regarding: RE: CTA denied MPE does not want to pursue CCTA. ----- Message ----- From: Sally Rendon RN Sent: 10/12/2019 2:39 PM NAVAL AIRCREWMAN MECHANICAL To: Rafia Snyder RN Subject: RE: CTA denied They just said insurance would not cover it?? ----- Message ----- From: Rafia Snyder RN Sent: 10/12/2019 1:48 PM NAVAL AIRCREWMAN MECHANICAL To: Sally Rendon RN Subject: RE: CTA denied Yes, his CT is for post ablation. I will review with MPE and get back to you. An y particular reason CT was denied? ----- Message ----- From: Cecy He RN Sent: 10/12/2019 1:20 PM NAVAL AIRCREWMAN MECHANICAL To: Rafia Snyder RN Subject: FW: CTA denied ----- Message ----- From: Sally Rendon RN Sent: 10/12/2019 12:39 PM NAVAL AIRCREWMAN MECHANICAL To: Cv Nurse Ep Subject: CTA denied Just wanted to let you know insurance denied ct. Looks like pre cert was ariella murray FC. I see that he is post ablation, does he need ct? Pt is coming 10/16 Mo nday for OV and ct L AIRCREWMAN MECHANICAL documented in this encounter Plan of Treatment [...]
--- OUTSIDE RECORDS SUMMARY | 2020-03-28 23:44 | XMS REPORT | Encounter Summary ---
Author Author [facility] Organization [facility] Address Unknown Phone Unavailable Care Team Providers Care Meteorology Instructor Name Role Phone Sherman Spicer MD Unavailable Reyna Bond Unavailable Unavailable Indiana Bauer APRN PCP Unavailable Encounter Details Care Team Description Date Type Department Ya Howard, RN 11/09/2019 Telephone [facility] [address] [place] [address] Social History Date Tobacco Use [...] Ya Howard RN - 11/09/2019 11:33 AM GASKET SUPERVISOR returned call to David he just had [...] c/b the dental office if further questions ET SUPERVISOR * Telephone Encounter - Ya Howard RN - 11/09/2019 11:32 AM GASKET SUPERVISOR ----- Message from Mercy Carbajal LPN sent at 11/09/2019 11:17 AM GASKET SUPERVISOR ----- Regarding: MPE- cp and dizzy VM from patient on triage line. Said that he was given Anesthesia yesterday to pull all his teeth. Last night his heart pounded and today he has headache, chest pain ant is lighth eaded, dizzy. Should he to to the ED or see if it gets better?Could it be from the anesthesia? He has new # [phone]. ET SUPERVISOR documented in this encounter Plan of Treatment [...]
--- OUTSIDE RECORDS SUMMARY | 2020-03-28 23:44 | XMS REPORT ---
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 Active 59664077 Problem Mass of sinus R22.0 Active 808519 7 Problem Chronic pain syndrome G89.4 Active 83179311 Problem Posttraumatic stress disorder F43.10 Active 79274169 Problem Severe major depression with psychotic features F3 2.3 Active 88512136 Problem Gastroesophageal reflux disease, esophagitis pre sence not specified K21.9 Active 305733787 Problem Urinary hesitancy R39.11 Active 59 46278 Problem Elevated platelet count D47.3 Active 977080963 Problem Diverticulitis K57.92 Active 95900 6006 Problem Other chronic pain G89.29 Active 8 0301988 Problem Paroxysmal atrial fibrillation I48.0 Active 883723111 Problem Major depressive disorder, recurrent, moderate F33 .1 Active 36607607 Problem Chronic hepatitis C without hepatic coma B18.2 Active 214932811 Problem Sleep disorder G47.9 Active 27366 005 Problem Acquired hypothyroidism E03.9 Active 193383608 Problem Acute non-recurrent frontal sinusitis J01.10 Active 75010132 ALLERGIES No Information ENCOUNTERS Encounter Location Date Diagnosis [address] [id number] [place] [address] Feb, [address] [id number] [address] 17 Feb, 2020 Throat pain R07.[address] 340[address] [id number], [place] [address] 11 Feb, 2020 Chronic pain syndrome G89.4 [facility] [address] [id number] [place] [address] 10 Feb, 2020 Chronic pain syndrome G89.4 and Posttraumatic stress disorder F43.10 [facility] [address] [id number] [place] [address] 08 Feb, 2020 Paroxysmal atrial fibrillati on I48.0 and Acquired hypothyroidism E03.9 [facility] [address] [facility] [id number] [place] [address] 04 Feb, 2020 [facility] [address] [facility] [id number] [address] [place] [address] 03 Feb, [address] 340[address] [id number], [place] [address] Feb, [address] 340[address] [id number], [place] [address] January, [address] 340[address] [id number], [place] [address] January, Acquired hypothyroidism E03. [address] 340[address] [id number], [place] [address] January, Mass of neck R22.1 ; Penile rash R21 and Paroxysmal atrial fibrillation I48.0 [facility] [address] 340B [id number], [place] [address] January, [address] 340[address] [id number], [place] [address] January, Mass of neck R22.1 ; Penile rash R21 and Paroxysmal atrial fibrillation I48.0 [facility] [address] 340 [id number] [place] [address] January, [facility] [address] [id number] [address] [place] [address] 12 Jan, 2020 Chronic pain syndrome G89.4 and Posttraumatic stress disorder F43.[address] 340B [id number], [place] [address] January, Chronic pain syndrome G89.4 and Posttraumatic stress disorder F43.10 [facility] [address] [id number] [address] 15 Dec, 2019 Mouth pain K13.79 and Nausea R11.0 [facility] [address] [id number] [place] [address] 15 Dec, 2019 OUTREACH [facility] [address] [place] [address] 15 Dec, [address] 340B [id number] [place] [address] 14 Dec, 2019 Chronic pain syndrome G89.4 and Posttraumatic stress disorder F43.10 [facility] [address] 340B [id number] [place] [address] 13 Dec, 2019 Chronic pain syndrome G89.4 and Posttraumatic stress disorder F43.10 [facility] [address] 340B [id number], [place] [address] Dec, [address] 340[address] [id number] [place] [address] 31 Nov, [address] 340[address] [id number], [place] [address] Nov, Chronic pain syndrome G89.4 and Posttraumatic stress disorder F43.[address] 340B [id number], [place] [address] 17 Nov, 2019 [facility] [address] [facility] [id number] 00[place] [id number] Oct, [facility] [address] [id number] [place] [id number] Oct, [facility] [address] [place] [address] Oct, Caries K02.9 [facility] [address] [id number] 100KS [place] [address] Oct, [facility] [address] 340[address] [id number] [place] [address] 18 Oct, 2019 Chronic pain syndrome G89.4 and Posttraumatic stress disorder F43.[address] 340B [id number] [place] [address] 18 Oct, [address] 340B [id number] [place] [address] 14 Oct, 2019 Chronic pain syndrome G89.4 and Posttraumatic stress disorder F43.10 [facility] [address] [facility] [id number] 00[place] [id number] 05 Oct, [address] 340B [id number], [place] [address] Sep, Epigastric abdominal pain R1 0.13 ; Diverticulitis K57.92 and Viral upper respiratory tract infection J06.[address] 340B [id number], [place] [address] Sep, Posttraumatic stress disorde r F43.[address] 340B [id number], [place] [address] Sep, Chronic pain syndrome G89.4 and Posttraumatic stress disorder F43.[address] 340[address] [id number], [place] [address] Sep, [facility] [address] [id number] 100KS [place] [address] Sep, [address] 340[address] [id number], [place] [address] Sep, [address] 340[address] [id number], [place] [address] Sep, Dental abscess K04.7 ; Histo ry of atrial flutter Z86.79 and Neck pain M54.[address] 340B [id number] [place] [address] Sep, [address] 340B [id number] [place] [address] Sep, Acquired hypothyroidism E03. 9 [facility] [address] [place] [address] Aug, 9 Posttraumatic stress disorder F43.10 and Chronic pain syndrome G89.[address] 340B [id number], [place] [address] Aug, Chronic pain syndrome G89.4 and Dental caries K02.[address] 340[address] [id number], [place] [address] Aug, [address] 340[address] [id number], [place] [address] Jul, Sleep disorder G47.9 [facility] [address] [id number] [address] [place] [id number] Jul, Caries K02.[address] 340B [id number], [place] [address] Jun, Low back pain M54.5 and Othe r chronic pain G89.[address] 340B [id number], [place] [address] Jun, [address] 340B [id number], [place] [address] Jun, Sleep disorder G47.[address] 340B [id number], [place] [address] Jun, Sleep disorder G47.[address] 340B [id number], [place] [address] Jun, Lightheadedness R42 and Merritt al abscess K04.7 [facility] [address] [id number] [address] [place] [id number] Jun, Dental examination Z01.20 an d Caries K02.[address] 340B [id number], [place] [address] Jun, [facility] [place] [address] 340B [id number] [place] [address] Jun, Encounter for immunization Z 23 [facility] [address] 340B [id number] [place] [address] Jun, Dental abscess K04.[address] pain, unspecified type R07.9 [facility] [place] [address] 340B [id number], [place] [address] Jun, Encounter for immunization Z 23 [facility] [place] [address] 340B [id number], [place] [address] May, Sleep disorder G47.9 [facility] [address] 340B [id number], [place] [address] May, Chronic pain syndrome G89.4 [facility] [address] 340B [id number], [place] [address] 16 May, 2019 History of atrial flutter Z8 6.79 ; Chronic pain syndrome G89.4 and Acquired hypothyroidism E03.9 [facility] [address] 340B [id number], [place] [address] May, [facility] [address] 340B [id number], [place] [address] May, Nausea R11.0 and Lightheaded ness R42 [facility] [address] 340B [id number], [place] [address] May, Sleep disorder G47.9 [facility] [address] 340 [id number] [place] [address] Apr, Acute non-recurrent frontal sinusitis J01.10 and Tick bite, initial encounter W57.XXXA [facility] [address] 340B [id number] [place] [address] Apr, Sleep disorder G47.9 [facility] [address] 340B [id number], [place] [address] Mar, Sleep disorder G47.9 [facility] [address] [id number] [address] Mar, [facility] [place] [address] 340B [id number] [place] [address] Mar, [facility] [place] [address] 340B [id number] [place] [address] Feb, History of atrial flutter Z8 6.79 and Muscle cramping R25.2 [facility] [place] [address] 340B [id number] [place] [address] Feb, [facility] [place] [address] 340B [id number] [place] [address] Feb, [facility] [place] [address] 340B [id number] [place] [address] Feb, Cellulitis of left upper ext remity L03.114 and Sleep disorder G47.9 [facility] [place] [address] 340B [id number] [place] [address] Feb, Muscle cramping R25.2 [facility] [address] 340B [id number] [place] [address] January, Chronic pain syndrome G89.4 [facility] [place] [address] 340B [id number] [place] [address] January, [facility] [address] 340B [id number] [place] [address] January, Chronic pain syndrome G89.4 ; Dizziness R42 ; Acquired hypothyroidism E03.9 ; Low back pain M54.5 ; Pulmonary embolism without acute cor pulmonale, unspecified chronicity, unspecified pulmonary embolism type I26.99 and Sleep disorder G47.9 [facility] [address] 340B [id number] [place] [address] January, [facility] [address] 340B [id number] [place] [address] January, [facility] [address] [id number] [address] [place] [address] Sep, Chronic pain syndrome G89.4 [facility] [address] [id number] [address] [place] [address] Sep, [facility] [address] [id number] [address] [place] [address] Sep, [facility] [address] [id number] [address] [place] [address] Sep, [facility] [address] [id number] [address] [place] [address] Sep, [facility] [address] [id number] [address] [place] [address] Sep, [facility] [address] [id number] [address] [place] [address] Sep, [facility] [address] [id number] [address] [place] [address] Aug, [facility] [address] [id number] [address] [place] [address] Aug, Portal vein thrombosis I81 ; Chronic pain syndrome G89.4 ; Other acute pulmonary embolism without acute cor pulmonale I26.99 and Chronic hepatitis C without hepatic coma B18.2 [facility] [address] [id number] [address] [place] [address] Aug, [facility] [address] [id number] [address] [place] [address] Aug, [facility] [address] [facility] [id number] [address] [place] [address] Jul, Major depressive disorder, r ecurrent, moderate F33.1 and Posttraumatic stress disorder F43.10 [facility] [address] [id number] [address] [place] [address] Jul, Gastroesophageal reflux dise ase, esophagitis presence not specified K21.9 [facility] [address] [id number] [address] [place] [address] Jun, [facility] [address] [id number] [address] [place] [address] Jun, [facility] [address] [id number] [address] [place] [address] Jun, Posttraumatic stress disorde r F43.10 and Severe major depression with psychotic features F32.3 [facility] [address] [id number] [address] [place] [address] Apr, [facility] [address] [id number] [address] [place] [address] Apr, Mass of sinus R22.0 ; Athero sclerotic heart disease of [place] coronary artery with unspecified angina pectoris I25.119 and Elevated platelet count D47.3 [place] [address] [id number] [address] [place] [address] Apr, Severe major depression with psychotic features F32.3 and Posttraumatic stress disorder F43.10 [place] [address] [id number] [address] [place] [address] January, [facility] [address] [id number] [address] [place] [address] January, Posttraumatic stress disorde r F43.10 and Severe major depression with psychotic features F32.3 [place] [address] [id number] [address] [place] [address] Dec, Atherosclerotic heart diseas e of [place] coronary artery with unspecified angina pectoris I25.119 and Elevated platelet count D47.3 [place] [address] [id number] [address] [place] [address] Dec, [facility] [address] [id number] [address] [place] [address] Dec, Low energy R53.83 ; Atherosc lerotic heart disease of [place] coronary artery with unspecified angina pectoris I25.119 ; Gastroesophageal reflux disease, esophagitis presence not specified K21.9 and Urinary hesitancy R39.11 [facility] [address] [facility] [id number] [address] [place] [address] Dec, Posttraumatic stress disorde r F43.10 and Severe major depression with psychotic features F32.3 [facility] [address] [id number] [address] [place] [address] Oct, [facility] [address] [facility] [id number] [address] [place] [address] Sep, Mass of sinus R22.0 [place] [address] [facility] [id number] [address] [place] [address] Sep, Dysuria R30.0 ; Low back avi n M54.5 ; Other chronic pain G89.29 ; Poor nutrition E63.9 ; Gastroesophageal reflux disease, esophagitis presence not specified K21.9 and Mass of sinus R22.0 [place] [address] [facility] [id number] [address] [place] [address] Sep, Posttraumatic stress disorde r F43.10 and Severe major depression with psychotic features F32.3 [place] [address] [facility] [id number] [address] [place] [address] Sep, [place] [address] [facility] [id number] [address] [place] [address] Aug, [place] [address] [place] [id number] [address] [place] [address] Aug, Encounter for immunization Z 23 [place] [address] [facility] [id number] [address] [place] [address] Jul, Posttraumatic stress disorde r F43.10 ; Severe major depression with psychotic features F32.3 and Major depressive disorder, recurrent, moderate F33.1 [place] [address] [facility] [id number] [address] [place] [address] Jun, [place] [address] [id number] [address] [place] [address] Jun, [facility] [address] [id number] [address] [place] [address] May, [facility] [address] [id number] [address] [place] [address] Apr, [facility] [address] [id number] [address] [place] [address] Apr, Posttraumatic stress disorde r F43.10 and Severe major depression with psychotic features F32.3 [facility] [address] [id number] [address] [place] [address] Mar, [facility] [address] [id number] [address] [place] [address] Feb, [facility] [address] [id number] [address] [place] [address] January, [facility] [address] [id number] [address] [place] [address] January, Posttraumatic stress disorde r F43.10 and Severe major depression with psychotic features F32.3 [facility] [address] [id number] [address] [place] [address] Dec, [facility] [address] [id number] [address] [place] [address] Nov, [facility] [address] [id number] [address] [place] [address] Nov, [facility] [address] [id number] [address] [place] [address] Oct, Posttraumatic stress disorde r F43.10 and Severe major depression with psychotic features F32.3 [facility] [address] [id number] [address] [place] [address] Sep, Encounter for immunization Z 23 ; Posttraumatic stress disorder F43.10 and Severe major depression with psychotic features F32.3 [facility] [address] [place] [id number] [address] [place] [address] Aug, [facility] [address] [place] [id number] [address] [place] [address] Aug, [facility] [address] [place] [id number] [place] [address] Jul, Encounter for immunization Z 23 ; Posttraumatic stress disorder F43.10 and Severe major depression with psychotic features F32.3 [facility] [address] [address] Jun, [facility] [address] [address] Jun, Mass of sinus R22.0 ; Low ba ck pain M54.5 and Paroxysmal atrial fibrillation I48.0 [facility] [address] [address] May, [facility] [address] [address] Apr, Posttraumatic stress disorde r 309.81 and Major depressive disorder, recurrent episode, moderate 296.32 [facility] [address] [address] Apr, [facility] [address] [place] [id number] [address] [place] [address] Mar, Major depressive disorder, r ecurrent episode, moderate 296.32 and Posttraumatic stress disorder 309.81 [facility] [address] [place] [id number] [address] [place] [address] Feb, [facility] [address] [address] Feb, [facility] [address] [place] [id number] [place] [address] January, [facility] [address] [address] January, [facility] [address] [id number] [address] [place] [address], [place] [address] January, [facility] [address] [id number] [address] [place] [address], [place] [address] 14 Dec, 2014 [facility] [address] [id number] [address] [place] [address], [place] [address] Dec, [facility] [address] [id number] [address] [place] [address], [place] [address] Nov, [facility] [address] [id number] [address] [place] [address], [place] [address] Nov, [facility] [address] [id number] [address] [place] [address], [place] [address] Nov, [facility] [address] [id number] [address] [place] [address], [place] [address] Nov, [facility] [address] [id number] [address] [place] [address], [place] [address] Nov, [facility] [address] [id number] [address] [place] [address], [place] [address] Nov, [facility] [address] [id number] [address] [place] [address], [place] [address] Nov, [facility] [address] [id number] [address] [place] [address], [place] [address] Nov, [facility] [address] [id number] [address] [place] [address], [place] [address] Oct, [facility] [address] [id number] [address] [place] [address], [place] [address] Oct, [facility] [address] [id number] [address] [place] [address], [place] [address] Oct, [facility] [address] [id number] [address] [place] [address], [place] [address] Oct, [facility] [address] [id number] [address] [place] [address], [place] [address] Oct, 2014 [facility] [address] [id number] [address] [place] [address], [place] [address] Oct, 2014 [facility] [address] [id number] [address] [place] [address], [place] [id number] Oct, 2014 [facility] [address] [id number] [address] [place] [address], [place] [id number] Oct, 2014 [facility] [address] [id number] [address] [place] [address], [place] [id number] Oct, 2014 [facility] [address] [id number] [address] [place] [address], [place] [id number] Oct, 2014 [facility] [address] [id number] [address] [place] [address], [place] [id number] Oct, 2014 [facility] [address] [id number] [address] [place] [address], [place] [id number] Oct, 2014 [facility] [address] [id number] [address] [place] [id number] Oct, 2014 [facility] [address] [id number] [address] [place] [address], [place] [id number] Oct, 2014 [facility] [address] [id number] [address] [place] [id number] Oct, 2014 [facility] [address] [id number] [address] [place] [id number] Oct, 2014 [facility] [address] [id number] [address] [place] [id number] Sep, [facility] [address] [id number] [address] [place] [id number] Sep, [facility] [address] [id number] [address] [place] [id number] Sep, [facility] [address] [id number] [address] [place] [id number] Sep, [facility] [address] [id number] [address] [place] [id number] Aug, [facility] [facility] [address] [id number] [address] [place] [address], [place] [id number] Aug, [facility] [address] [id number] [address] [place] [address], [place] [address] Aug, [facility] [address] [id number] [address] [place] [address], [place] [id number] Aug, [facility] [address] [id number] [address] [place] [address], [place] [id number] Aug, [facility] [address] [id number] [address] [place] [address], [place] [address] Aug, [facility] [address] [id number] [address] [place] [address], [place] [id number] Aug, [facility] [address] [id number] [address] [place] [address], [place] [id number] Aug, [facility] [address] [id number] [address] [place] [address], [place] [id number] Aug, [facility] [address] [id number] [address] [place] [address], [place] [address] Aug, [facility] [address] [id number] [address] [place] [address], [place] [id number] Aug, [facility] [address] [id number] [address] [place] [address], [place] [address] Aug, [facility] [address] [id number] [address] [place] [address], [place] [address] Aug, [facility] [address] [id number] [address] [place] [address], [place] [address] Aug, [facility] [address] [id number] [address] [place] [address], [place] [address] Aug, [facility] [address] [id number] [address] [place] [address], [place] [id number] Aug, [facility] [address] [id number] [address] [place] [address], [place] [id number] Jul, [facility] [address] [id number] [address] [place] [address], [place] [id number] Jul, [facility] [address] [id number] [address] [place] [address], [place] [address] Jul, [facility] [address] [id number] [address] [place] [address], [place] [id number] Jul, [facility] [address] [id number] [address] [place] [address], [place] [id number] Jul, [facility] [address] [id number] [address] [place] [address], [place] [address] Jul, [facility] [address] [id number] [address] [place] [address], [place] [address] Jun, [facility] [address] [id number] [address] [place] [address], [place] [id number] Jun, [facility] [address] [id number] [address] [place] [address], [place] [address] Jun, [facility] [address] [id number] [address] [place] [address], [place] [address] Jun, [facility] [address] [id number] [address] [place] [address], [place] [address] Jun, [facility] [address] [id number] [address] [place] [id number] Jun, [facility] [address] [id number] [address] [place] [address], [place] [address] Jun, [facility] [address] [id number] [address] [place] [address], [place] [address] Jun, [facility] [address] [id number] [address] [place] [id number] Jun, [facility] [address] [id number] [address] [place] [address], [place] [address] Jun, [facility] [address] [id number] [address] [place] [address], [place] [id number] Jun, [facility] [address] [id number] [address] [place] [address], [place] [id number] Jun, [facility] [address] [id number] [address] [place] [address], [place] [address] Jun, [facility] [address] [id number] [address] [place] [address], [place] [address] Jun, [facility] [address] [id number] [address] [place] [address], [place] [address] May, [facility] [address] [id number] [address] [place] [address], [place] [address] May, [facility] [address] [id number] [address] [place] [address], [place] [address] May, [facility] [address] [id number] [address] [place] [address], [place] [address] May, [facility] [address] [id number] [address] [place] [address], [place] [address] Apr, [facility] [address] [id number] [address] [place] [address], [place] [address] Apr, [facility] [address] [id number] [address] [place] [address], [place] [address] Apr, [facility] [address] [id number] [address] [place] [address], [place] [address] Apr, [facility] [address] [id number] [address] [place] [address], [place] [address] Mar, [facility] [address] [id number] [address] [place] [address], [place] [address] Mar, [facility] [address] [id number] [address] [place] [address], [place] [id number] Mar, [facility] [address] [id number] [facility] [place] [address] Mar, [facility] [address] [id number] [address] [place] [address], [place] [id number] Mar, [facility] [address] [id number] [facility] [place] [address] Mar, [facility] [address] [id number] [address] [place] [address], [place] [address] Mar, [facility] [address] [id number] [address] [place] [address], [place] [address] Mar, [facility] [address] [id number] [address] [place] [address], [place] [address] Mar, [facility] [address] [id number] [address] [place] [address], [place] [address] Mar, [facility] [address] [id number] [address] [place] [address], [place] [address] Mar, [facility] [address] [id number] [address] [place] [address], [place] [address] Mar, [facility] [address] [id number] [address] [place] [address], [place] [id number] Feb, [facility] [address] [id number] [address] [place] [address], [place] [address] Feb, [facility] [address] [id number] [address] [place] [address], [place] [address] Feb, [facility] [address] [id number] [address] [place] [address], [place] [address] Feb, [facility] [address] [id number] [address] [place] [address], [place] [address] Feb, [facility] [address] [id number] [address] [place] [address], [place] [address] Feb, [facility] [address] [id number] [facility] [place] [address] January, [facility] [address] [id number] [address] [place] [address], [place] [address] January, [facility] [address] [id number] [facility] [place] [address] January, [facility] [address] [id number] [address] [place] [address], [place] [address] January, [facility] [address] [id number] [address] [place] [address], [place] [address] January, [facility] [address] [id number] [address] [place] [address], [place] [address] January, [facility] [address] [id number] [address] [place] [address], [place] [id number] Nov, [facility] [address] [id number] [address] [place] [address], [place] [address] Nov, [facility] [address] [id number] [address] [place] [address], [place] [address] Nov, [facility] [address] [id number] [address] [place] [address], [place] [address] Nov, [facility] [address] [id number] [address] [place] [address], [place] [address] Oct, [facility] [address] [id number] [address] [place] [address], [place] [address] Oct,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
--- OUTSIDE RECORDS SUMMARY | 2020-03-28 23:44 | XMS REPORT | Encounter Summary ---
Author Author [facility] Organization [facility] Address Unknown Phone Unavailable Care Team Providers Care Medical Assistant Ob Gyn Name Role Phone Sherman Spicer MD Unavailable Reyna Bond Unavailable Unavailable Indiana Bauer APRN PCP Unavailable Reason for Visit * Reason Comments Other Cardiac Rehab Referral Encounter Details Care Team Description Date Type Department Rafia Snyder RN Other (Cardiac Rehab Referral) 11/07/2019 Telephone [facility] [address] [place], [place] [address] Social History Date Tobacco Use Types Packs/Day [...] Rafia Snyder RN - 11/07/2019 4:41 PM COPY CENTER OPERATOR RN verifying that patient qualifies for cardiac rehab before calling patient dede k. Patient can also call insurance to see if he would qualify for cardiac rehab. RN called provided call back number ([phone]) and was able to LVM informing patient of the above. RN left call back number in message. Will remain availab le. GORDO Jackson. ----- Message ----- From: Mercy Carbajal LPN Sent: 11/06/2019 8:18 AM COPY CENTER OPERATOR To: Cvm Nurse Yousif Subject: [facility]- referral VM from patient on triage line Wednesday at 6:10pm. He wanted to know if we had chance to see if [facility] would do the heart rehab referr al for him. Call back at # [phone]. 2019 1337 - RN returning call to patient to inform him that he would need t o call rehab center first to see if he qualifies for cardiac rehab. RN attempted to contact patient twice ([phone] both times and both times received the [...] referral first? Call him back at # [phone]. CENTER OPERATOR documented in this encounter Plan of [...]
--- OUTSIDE RECORDS SUMMARY | 2020-03-28 23:44 | XMS REPORT ---
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 Active 59573929 Problem Mass of sinus R22.0 Active 623239 7 Problem Chronic pain syndrome G89.4 Active 05775744 Problem Posttraumatic stress disorder F43.10 Active 47219476 Problem Severe major depression with psychotic features F3 2.3 Active 70242304 Problem Gastroesophageal reflux disease, esophagitis pre sence not specified K21.9 Active 683125404 Problem Urinary hesitancy R39.11 Active 59 08672 Problem Elevated platelet count D47.3 Active 650221189 Problem Diverticulitis K57.92 Active 80991 6006 Problem Other chronic pain G89.29 Active 8 7295581 Problem Paroxysmal atrial fibrillation I48.0 Active 966770970 Problem Major depressive disorder, recurrent, moderate F33 .1 Active 46069110 Problem Chronic hepatitis C without hepatic coma B18.2 Active 082554177 Problem Sleep disorder G47.9 Active 74577 005 Problem Acquired hypothyroidism E03.9 Active 562122390 Problem Acute non-recurrent frontal sinusitis J01.10 Active 49277715 ALLERGIES No Information ENCOUNTERS Encounter Location Date Diagnosis [address] 340B [id number] [place] [address] Feb, [address] 340[id number] [address] 17 Feb, 2020 Throat pain R07.[address] 340[address] [id number], [place] [address] Feb, Chronic pain syndrome G89.4 [facility] [address] 340B [id number] [place] [address] 10 Feb, 2020 Chronic pain syndrome G89.4 and Posttraumatic stress disorder F43.10 [facility] [address] 340B [id number] [place] [address] 08 Feb, 2020 Paroxysmal atrial fibrillati on I48.0 and Acquired hypothyroidism E03.9 [facility] [address] [facility] [address] [id number] [place] [address] 04 Feb, 2020 [facility] [address] [facility] [id number] [place] [address] 03 Feb, [address] 340[address] [id number], [place] [address] Feb, [address] 340B [id number], [place] [address] January, [address] 340[address] [id number], [place] [address] January, Acquired hypothyroidism E03. [address] 340[address] [id number], [place] [address] January, Mass of neck R22.1 ; Penile rash R21 and Paroxysmal atrial fibrillation I48.0 [facility] [address] 340[place] [id number], [place] [address] January, [address] 340B [id number], [place] [address] January, Mass of neck R22.1 ; Penile rash R21 and Paroxysmal atrial fibrillation I48.0 [facility] [address] 340 [id number] [place] [address] January, [facility] [address] [id number] [address] [place] [address] 12 Jan, 2020 Chronic pain syndrome G89.4 and Posttraumatic stress disorder F43.[address] 340B [id number], [place] [address] January, Chronic pain syndrome G89.4 and Posttraumatic stress disorder F43.10 [facility] [address] 340 [id number] [place] [address] 15 Dec, 2019 Mouth pain K13.79 and Nausea R11.0 [facility] [address] 340 [id number] [place] [address] 15 Dec, 2019 OUTREACH [facility] [address] [place] [place] [address] 15 Dec, [address] 340B [id number] [place] [address] 14 Dec, 2019 Chronic pain syndrome G89.4 and Posttraumatic stress disorder F43.10 [facility] [address] 340B [id number] [place] [address] 13 Dec, 2019 Chronic pain syndrome G89.4 and Posttraumatic stress disorder F43.10 [facility] [address] 340B [id number], [place] [address] Dec, [address] 340B [id number] [place] [address] 31 Nov, [address] 340B [id number], [place] [address] Nov, Chronic pain syndrome G89.4 and Posttraumatic stress disorder F43.[address] 340B [id number], [place] [address] 17 Nov, 2019 [facility] [address] [facility] [id number] 00[place] [id number] Oct, [facility] [address] [id number] [place] [id number] Oct, [facility] [address] [place] [address] Oct, Caries K02.9 [facility] [address] [id number] 100KS [place] [address] Oct, [facility] [address] 340B [id number] [place] [address] 18 Oct, 2019 Chronic pain syndrome G89.4 and Posttraumatic stress disorder F43.10 [facility] [address] 340B [id number] [place] [address] 18 Oct, [address] 340B [id number] [place] [address] 14 Oct, 2019 Chronic pain syndrome G89.4 and Posttraumatic stress disorder F43.10 [facility] [address] [facility] [id number] 00[place] [id number] 05 Oct, [address] 340B [id number], [place] [address] Sep, Epigastric abdominal pain R1 0.13 ; Diverticulitis K57.92 and Viral upper respiratory tract infection J06.[address] 340B [id number], [place] [address] Sep, Posttraumatic stress disorde r F43.[address] 340B [id number], [place] [address] Sep, Chronic pain syndrome G89.4 and Posttraumatic stress disorder F43.[address] 340B [id number], [place] [address] Sep, [facility] [address] [id number] 100[place] [address] Sep, [address] 340B [id number], [place] [address] Sep, [address] 340B [id number], [place] [address] Sep, Dental abscess K04.7 ; Histo ry of atrial flutter Z86.79 and Neck pain M54.2 [facility] [address] 340B [id number], [place] [address] Sep, Acquired hypothyroidism E03. [address] 340B [id number] [place] [address] Sep, [facility] [address] [place] [address] Aug, 9 Posttraumatic stress disorder F43.10 and Chronic pain syndrome G89.[address] 340B [id number] [place] [address] Aug, Chronic pain syndrome G89.4 and Dental caries K02.[address] 340B [id number], [place] [address] Aug, [address] 340B [id number], [place] [address] Jul, Sleep disorder G47.9 [facility] [address] [id number] [address] [place] [id number] Jul, Caries K02.[address] 340B [id number], [place] [address] Jun, Low back pain M54.5 and Othe r chronic pain G89.[address] 340B [id number], [place] [address] Jun, [address] 340B [id number], [place] [address] Jun, Sleep disorder G47.[address] 340B [id number], [place] [address] Jun, Sleep disorder G47.[address] 340B [id number], [place] [address] Jun, Lightheadedness R42 and [place] al abscess K04.7 [facility] [address] [id number] [address] [place] [id number] Jun, Dental examination Z01.20 an d Caries K02.[address] 340B [id number], [place] [address] Jun, [facility] [address] 340B [id number] [place] [address] Jun, Encounter for immunization Z 23 [facility] [address] 340B [id number] [place] [address] Jun, Dental abscess K04.[address] pain, unspecified type R07.9 [facility] [address] 340B [id number], [place] [address] Jun, Encounter for immunization Z 23 [facility] [address] 340B [id number], [place] [address] May, Sleep disorder G47.9 [facility] [address] 340B [id number], [place] [address] May, Chronic pain syndrome G89.4 [facility] [address] 340[place] [id number], [place] [address] 16 May, 2019 History of atrial flutter Z8 6.79 ; Chronic pain syndrome G89.4 and Acquired hypothyroidism E03.9 [facility] [address] 340B [id number], [place] [address] May, [facility] [address] 340B [id number], [place] [address] May, Nausea R11.0 and Lightheaded ness R42 [facility] [address] 340B [id number], [place] [address] May, Sleep disorder G47.9 [facility] [address] 340 [id number] [place] [address] Apr, Acute non-recurrent frontal sinusitis J01.10 and Tick bite, initial encounter W57.XXXA [facility] [address] 340B [id number] [place] [address] Apr, Sleep disorder G47.9 [facility] [address] 340B [id number], [place] [address] Mar, Sleep disorder G47.9 [facility] [address] 340 [id number] [address] Mar, [facility] [address] 340B [id number] [place] [address] Mar, [facility] [address] 340B [id number] [place] [address] Feb, History of atrial flutter Z8 6.79 and Muscle cramping R25.2 [facility] [address] 340B [id number] [place] [address] Feb, [facility] [address] 340B [id number] [place] [address] Feb, [facility] [address] 340B [id number] [place] [address] Feb, Cellulitis of left upper ext remity L03.114 and Sleep disorder G47.9 [facility] [address] 340B [id number] [place] [address] Feb, Muscle cramping R25.2 [facility] [address] 340B [id number] [place] [address] January, Chronic pain syndrome G89.4 [facility] [address] 340B [id number] [place] [address] January, [facility] [address] 340B [id number] [place] [address] January, Chronic pain syndrome G89.4 ; Dizziness R42 ; Acquired hypothyroidism E03.9 ; Low back pain M54.5 ; Pulmonary embolism without acute cor pulmonale, unspecified chronicity, unspecified pulmonary embolism type I26.99 and Sleep disorder G47.9 [facility] [address] 340B [id number] [place] [address] January, [facility] [address] 340B [id number] [place] [address] January, [facility] [address] [id number] [address] [place] [address] Sep, Chronic pain syndrome G89.4 [facility] [address] [id number] [address] [place] [address] Sep, [facility] [address] [id number] [address] [place] [address] Sep, [facility] [address] [id number] [address] [place] [address] Sep, [facility] [address] [id number] [address] [place] [address] Sep, [facility] [address] [id number] [address] [place] [address] Sep, [facility] [address] [id number] [address] [place] [address] Sep, [facility] [address] [id number] [address] [place] [address] Aug, [facility] [address] [id number] [address] [place] [address] Aug, Portal vein thrombosis I81 ; Chronic pain syndrome G89.4 ; Other acute pulmonary embolism without acute cor pulmonale I26.99 and Chronic hepatitis C without hepatic coma B18.2 [facility] [address] [id number] [address] [place] [address] Aug, [facility] [address] [id number] [address] [place] [address] Aug, [facility] [address] [facility] [id number] [place] [address] Jul, Major depressive disorder, r ecurrent, moderate F33.1 and Posttraumatic stress disorder F43.10 [facility] [address] [id number] [address] [place] [address] Jul, Gastroesophageal reflux dise ase, esophagitis presence not specified K21.9 [facility] [address] [id number] [address] [place] [address] Jun, [facility] [address] [id number] [address] [place] [address] Jun, [facility] [address] [id number] [address] [place] [address] Jun, Posttraumatic stress disorde r F43.10 and Severe major depression with psychotic features F32.3 [facility] [address] [id number] [address] [place] [address] Apr, [facility] [address] [id number] [address] [place] [address] Apr, Mass of sinus R22.0 ; Athero sclerotic heart disease of [place] coronary artery with unspecified angina pectoris I25.119 and Elevated platelet count D47.3 [facility] [address] [id number] [address] [place] [address] Apr, Severe major depression with psychotic features F32.3 and Posttraumatic stress disorder F43.10 [facility] [address] [id number] [address] [place] [address] January, [facility] [address] [id number] [address] [place] [address] January, Posttraumatic stress disorde r F43.10 and Severe major depression with psychotic features F32.3 [facility] [address] [id number] [address] [place] [address] Dec, Atherosclerotic heart diseas e of [place] coronary artery with unspecified angina pectoris I25.119 and Elevated platelet count D47.3 [facility] [address] [id number] [address] [place] [address] Dec, [facility] [address] [id number] [address] [place] [address] Dec, Low energy R53.83 ; Atherosc lerotic heart disease of [place] coronary artery with unspecified angina pectoris I25.119 ; Gastroesophageal reflux disease, esophagitis presence not specified K21.9 and Urinary hesitancy R39.11 [facility] [address] [facility] [id number] [place] [address] Dec, Posttraumatic stress disorde r F43.10 and Severe major depression with psychotic features F32.3 [facility] [address] [id number] [address] [place] [address] Oct, [facility] [address] [facility] [id number] [place] [address] Sep, Mass of sinus R22.0 [facility] [address] [facility] [id number] [place] [address] Sep, Dysuria R30.0 ; Low back avi n M54.5 ; Other chronic pain G89.29 ; Poor nutrition E63.9 ; Gastroesophageal reflux disease, esophagitis presence not specified K21.9 and Mass of sinus R22.0 [facility] [address] [facility] [id number] [place] [address] Sep, Posttraumatic stress disorde r F43.10 and Severe major depression with psychotic features F32.3 [facility] [address] [facility] [id number] [place] [address] Sep, [facility] [address] [facility] [id number] [place] [address] Aug, [facility] [address] [place] [id number] [address] [place] [address] Aug, Encounter for immunization Z 23 [facility] [address] [facility] [id number] [place] [address] Jul, Posttraumatic stress disorde r F43.10 ; Severe major depression with psychotic features F32.3 and Major depressive disorder, recurrent, moderate F33.1 [place] [address] [facility] [id number] [place] [address] Jun, [place] [address] [id number] [address] [place] [address] Jun, [facility] [address] [id number] [address] [place] [address] May, [facility] [address] [id number] [address] [place] [address] Apr, [facility] [address] [id number] [address] [place] [address] Apr, Posttraumatic stress disorde r F43.10 and Severe major depression with psychotic features F32.3 [facility] [address] [id number] [address] [place] [address] Mar, [facility] [address] [id number] [address] [place] [address] Feb, [facility] [address] [id number] [address] [place] [address] January, [facility] [address] [id number] [address] [place] [address] January, Posttraumatic stress disorde r F43.10 and Severe major depression with psychotic features F32.3 [facility] [address] [id number] [address] [place] [address] Dec, [facility] [address] [id number] [address] [place] [address] Nov, [facility] [address] [id number] [address] [place] [address] Nov, [facility] [address] [id number] [address] [place] [address] Oct, Posttraumatic stress disorde r F43.10 and Severe major depression with psychotic features F32.3 [facility] [address] [id number] [address] [place] [address] Sep, Encounter for immunization Z 23 ; Posttraumatic stress disorder F43.10 and Severe major depression with psychotic features F32.3 [facility] [address] [place] [id number] [address] [place] [address] Aug, [facility] [address] [place] [id number] [address] [place] [address] Aug, [facility] [address] [place] [id number] [place] [address] Jul, Encounter for immunization Z 23 ; Posttraumatic stress disorder F43.10 and Severe major depression with psychotic features F32.3 [facility] [address] [address] Jun, [facility] [address] [address] Jun, Mass of sinus R22.0 ; Low ba ck pain M54.5 and Paroxysmal atrial fibrillation I48.0 [facility] [address] [address] May, [facility] [address] [address] Apr, Posttraumatic stress disorde r 309.81 and Major depressive disorder, recurrent episode, moderate 296.32 [facility] [address] [address] Apr, [facility] [address] [place] [id number] [address] [place] [address] Mar, Major depressive disorder, r ecurrent episode, moderate 296.32 and Posttraumatic stress disorder 309.81 [facility] [address] [place] [id number] [address] [place] [address] Feb, [facility] [address] [address] Feb, [facility] [address] [place] [id number] [place] [address] January, [facility] [address] [address] January, [facility] [address] [id number] [address] [place] [address], [place] [address] January, [facility] [address] [id number] [address] [place] [address], [place] [address] 14 Dec, 2014 [facility] [address] [id number] [address] [place] [address], [place] [address] Dec, [facility] [address] [id number] [address] [place] [address], [place] [address] Nov, [facility] [address] [id number] [address] [place] [address], [place] [address] Nov, [facility] [address] [id number] [address] [place] [address], [place] [address] Nov, [facility] [address] [id number] [address] [place] [address], [place] [address] Nov, [facility] [address] [id number] [address] [place] [address], [place] [address] Nov, [facility] [address] [id number] [address] [place] [address], [place] [address] Nov, [facility] [address] [id number] [address] [place] [address], [place] [address] Nov, [facility] [address] [id number] [address] [place] [address], [place] [address] Nov, [facility] [address] [id number] [address] [place] [address], [place] [address] Oct, [facility] [address] [id number] [address] [place] [address], [place] [address] Oct, [facility] [address] [id number] [address] [place] [address], [place] [address] Oct, [facility] [address] [id number] [address] [place] [address], [place] [address] Oct, [facility] [address] [id number] [address] [place] [address], [place] [address] Oct, 2014 [facility] [address] [id number] [address] [place] [address], [place] [address] Oct, 2014 [facility] [address] [id number] [address] [place] [address], [place] [address] Oct, 2014 [facility] [address] [id number] [address] [place] [address], [place] [address] Oct, 2014 [facility] [address] [id number] [address] [place] [address], [place] [address] Oct, 2014 [facility] [address] [id number] [address] [place] [address], [place] [address] Oct, 2014 [facility] [address] [id number] [address] [place] [address], [place] [address] Oct, 2014 [facility] [address] [id number] [address] [place] [address], [place] [address] Oct, 2014 [facility] [address] [id number] [address] [place] [id number] Oct, 2014 [facility] [address] [id number] [address] [place] [address], [place] [address] Oct, 2014 [facility] [address] [id number] [address] [place] [id number] Oct, 2014 [facility] [address] [id number] [address] [place] [id number] Oct, 2014 [facility] [address] [id number] [address] [place] [address] Sep, [facility] [address] [id number] [address] [place] [id number] Sep, [facility] [address] [id number] [address] [place] [id number] Sep, [facility] [address] [id number] [address] [place] [id number] Sep, [facility] [address] [id number] [facility] [place] [address] Aug, [facility] [address] [id number] [address] [place] [address], [place] [address] Aug, [facility] [address] [address] [id number] [address] [place] [address], [place] [address] Aug, [facility] [address] [id number] [address] [place] [address], [place] [address] Aug, [facility] [address] [id number] [address] [place] [address], [place] [address] Aug, [facility] [address] [id number] [address] [place] [address], [place] [address] Aug, [facility] [address] [id number] [address] [place] [address], [place] [address] Aug, [facility] [address] [id number] [address] [place] [address], [place] [address] Aug, [facility] [address] [id number] [address] [place] [address], [place] [address] Aug, [facility] [address] [id number] [address] [place] [address], [place] [address] Aug, [facility] [address] [id number] [address] [place] [address], [place] [address] Aug, [facility] [address] [id number] [address] [place] [address], [place] [address] Aug, [facility] [address] [id number] [address] [place] [address], [place] [address] Aug, [facility] [address] [id number] [address] [place] [address], [place] [address] Aug, [facility] [address] [id number] [address] [place] [address], [place] [address] Aug, [facility] [address] [id number] [address] [place] [address], [place] [address] Aug, [facility] [address] [id number] [address] [place] [address], [place] [address] Jul, [facility] [address] [id number] [address] [place] [address], [place] [address] Jul, [facility] [address] [id number] [address] [place] [address], [place] [address] Jul, [facility] [address] [id number] [address] [place] [address], [place] [address] Jul, [facility] [address] [id number] [address] [place] [address], [place] [address] Jul, [facility] [address] [id number] [address] [place] [address], [place] [address] Jul, [facility] [address] [id number] [address] [place] [address], [place] [address] Jun, [facility] [address] [id number] [address] [place] [address], [place] [address] Jun, [facility] [address] [id number] [address] [place] [address], [place] [address] Jun, [facility] [address] [id number] [address] [place] [address], [place] [address] Jun, [facility] [address] [id number] [address] [place] [address], [place] [address] Jun, [facility] [address] [id number] [address] [place] [address] Jun, [facility] [address] [id number] [address] [place] [address], [place] [address] Jun, [facility] [address] [id number] [address] [place] [address], [place] [address] Jun, [facility] [address] [id number] [address] [place] [address] Jun, [facility] [address] [id number] [address] [place] [address], [place] [address] Jun, [facility] [address] [id number] [address] [place] [address], [place] [address] Jun, [facility] [address] [id number] [address] [place] [address], [place] [address] Jun, [facility] [address] [id number] [address] [place] [address], [place] [address] Jun, [facility] [address] [id number] [address] [place] [address], [place] [address] Jun, [facility] [address] [id number] [address] [place] [address], [place] [address] May, [facility] [address] [id number] [address] [place] [address], [place] [address] May, [facility] [address] [id number] [address] [place] [address], [place] [address] May, [facility] [address] [id number] [address] [place] [address], [place] [address] May, [facility] [address] [id number] [address] [place] [address], [place] [address] Apr, [facility] [address] [id number] [address] [place] [address], [place] [address] Apr, [facility] [address] [id number] [address] [place] [address], [place] [address] Apr, [facility] [address] [id number] [address] [place] [address], [place] [address] Apr, [facility] [address] [id number] [address] [place] [address], [place] [address] Mar, [facility] [address] [id number] [address] [place] [address], [place] [address] Mar, [facility] [address] [id number] [address] [place] [address], [place] [address] Mar, [facility] [address] [id number] [facility] [place] [address] Mar, [facility] [address] [id number] [address] [place] [address], [place] [address] Mar, [facility] [address] [id number] [facility] [place] [address] Mar, [facility] [address] [id number] [address] [place] [address], [place] [address] Mar, [facility] [address] [id number] [address] [place] [address], [place] [address] Mar, [facility] [address] [id number] [address] [place] [address], [place] [address] Mar, [facility] [address] [id number] [address] [place] [address], [place] [address] Mar, [facility] [address] [id number] [address] [place] [address], [place] [address] Mar, [facility] [address] [id number] [address] [place] [address], [place] [address] Mar, [facility] [address] [id number] [address] [place] [address], [place] [address] Feb, [facility] [address] [id number] [address] [place] [address], [place] [address] Feb, [facility] [address] [id number] [address] [place] [address], [place] [address] Feb, [facility] [address] [id number] [address] [place] [address], [place] [address] Feb, [facility] [address] [id number] [address] [place] [address], [place] [address] Feb, [facility] [address] [id number] [address] [place] [address], [place] [address] Feb, [facility] [address] [id number] [facility] [place] [address] January, [facility] [address] [id number] [address] [place] [address], [place] [address] January, [facility] [address] [id number] [facility] [place] [address] January, [facility] [address] [id number] [address] [place] [address], [place] [address] January, [facility] [address] [id number] [address] [place] [address], [place] [address] January, [facility] [address] [id number] [address] [place] [address], [place] [address] January, [facility] [address] [id number] [address] [place] [address], [place] [address] Nov, [facility] [address] [id number] [address] [place] [address], [place] [address] Nov, [facility] [address] [id number] [address] [place] [address], [place] [address] Nov, [facility] [address] [id number] [address] [place] [address], [place] [address] Nov, [facility] [address] [id number] [address] [place] [address], [place] [address] Oct, [facility] [address] [id number] [address] [place] [address], [place] [address] Oct, [facility] [address] [id number] [address] [place] [address], [place] [address] Sep, [facility] [address] [id number] [address] [place] [address], [place] [address] Sep, [facility] [address] [id number] [address] [place] [address], [place] [address] Sep, [facility] [address] [id number] [address]

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
--- OUTSIDE RECORDS SUMMARY | 2020-03-28 23:44 | XMS REPORT | Encounter Summary ---
Author Author [facility] Organization [facility] Address Unknown Phone Unavailable Care Team Providers Care Chief Electrician Name Role Phone hSerman Spicer MD Unavailable Reyna Bond Unavailable Unavailable Indiana Bauer APRN PCP Unavailable Reason for Visit * Reason Comments Follow-up Phone Call returned call, lm to c/b Encounter Details Care Team Description Date Type Department Ya Howard RN Follow-up Phone Call (returned call, to c/b) 01/05/[address] [place] [address] Social History Date Tobacco Use Types Packs/Day [...] has a heart question. Call him at #[phone]. documented in this encounter Plan of Treatment [...]
--- OUTSIDE RECORDS SUMMARY | 2020-03-28 23:44 | XMS REPORT | Encounter Summary ---
Author Author [facility] Organization [facility] Address Unknown Phone Unavailable Care Team Providers Care Ski Lift Attendant Name Role Phone Sherman Spicer MD Unavailable Reyna Bond Unavailable Unavailable Indiana Bauer APRN PCP Unavailable Reason for Visit * Reason Comments Follow Up left before being seen 10/16 Encounter Details Care Team Description Date Type Department Rafia Snyder RN Follow Up (left before being seen 020) 10/18/[address] [place] [address] Social History Date Tobacco Use Types Packs/Day [...] Rafia Snyder RN - 10/30/2019 12:59 PM FABRICATION MACHINE OPERATOR RN reaching out to patient informing him [...] female pts as this is sponsored by charity: [employer]. Unfortunately he will not qualify for it. Digital BP m onitors range from $50-90. I am not aware of a company that sells refurbished BP either. This is not identified as a DME so unfortunately, insurance will not co oziel this. Regarding cardiac rehab, I reviewed his history but I didn't see a qualifying dx for cardiac rehab. No recent [place], stents, valve repairs, or EF <35. Let me know if you have any questions. Thank you, -AL Routing comment You Constantine Perry RN 3 days ago Do we know where a patient could get a discounted or free blood pressure cuff to use at home? Routing comment ICATION MACHINE OPERATOR * Addendum Note - Alejandra Greene RN - 10/26/2019 10:30 AM FABRICATION MACHINE OPERATOR Addended by: ALEJANDRA GREENE on: 10/26/2019 10:30 AM Modules accepted: Orders ICATION MACHINE OPERATOR * Telephone Encounter - Alejandra Greene RN - 10/26/2019 10:04 AM FABRICATION MACHINE OPERATOR MPE- monitor Received: Today Call patient Message Contents Mercy Carbajal LPN P Cvm Nurse Yousif NEGRETE from patient on triage line at 4:49pm yesterday. Said that we were going to try and get b/p and pulse monitor for him. Any luck in finding them? He is at # [phone]. 10/26/2019 10:04 AM: Pt is asking for a referral to cardiac rehab at [facility]. I informed him that there [...] Fahad. I li stened to his frustrations. ICATION MACHINE OPERATOR * Telephone Encounter - Rafia Snyder RN - 10/18/2019 1:34 PM FABRICATION MACHINE OPERATOR RN called number listed in chart for patient ([phone]) and mobile number li sted for son of patient (Kota [phone]) were both disconnected. RN attempt ed to call home number listed for son (Kota [phone]) and that number was also disconnected. RN called [facility] and spoke with GORDO Og wh o stated that patient is on the schedule for procedure (full mouth extraction) o n 10/25/2019. RN informed Lenka that patient did not necessarily need to be seen b y MPE before procedure but that RN needed to speak with patient. Lenka provided phone number for the patient that RN had already attempted ([phone]) which is disconnected. RN to send letter to patient requesting that he contact our off ice [facility]ON[facility] to discuss potential discontinuation of Eliquis and possibly initiation of Lisinopril. Lenka was provided EP retail account representative Line phone number and had no fur ther questions at this time. RN will send no contact letter to patient address o n file. Will remain available. GORDO Jackson. ----- Message from Cecy He RN sent at 10/17/2019 7:29 AM FABRICATION MACHINE OPERATOR ----- Regarding: call patient? Per his recommendations [...] NEGRETE on triage line from Lenka with [facility] # [phone]. Said that they are just now going to do surgery and had CC from us but patient t old them that he had test with dye. Anesthesia would like results of test and new CC faxed to them at # [phone] . Said that they had faxed form to us on 10-10-19. 10/18/2019 1434 - RN called phone number provided by GORDO Og with [facility]. Phone number provided for patient was [phone]. RN was able to s peak with [...] cardiac authorization/recommendation (clearance) and will fax to [facility]. Will remain available. GORDO Jackson. E- RTC for Rafia Received: Today Message Contents Mercy Carbajal LPN P Cvm Nurse Ep PENELOPE from Lenka with [facility] # [phone] returning our call. Said that they have phone # [phone] for patient and she called and got VM. She left message that we are trying to get a hold of him. ICATION MACHINE OPERATOR documented in this encounter Plan of [...]
[2020-03-28] MEDS ORDERED: NITROGLYCERIN 0.4 MG SL TABS BTL 25'S SL PRN (23:45)
[2020-03-28] MEDS ORDERED: ASPIRIN 81 MG CHEW (CHILDREN'S ASA) PO ONE (23:45)
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
[2020-03-28 23:52] LABS: WHITE BLOOD COUNT 9.5 10^3/uL (4.3-11.0)
[2020-03-28 23:53] LABS: BASOPHILS # (AUTO) 0.1 10^3/uL (0.0-0.1); BASOPHILS % (AUTO) 1 % (0-10); EOSINOPHILS # (AUTO) 0.3 10^3/uL (0.0-0.3); EOSINOPHILS % (AUTO) 4 % (0-10); HEMATOCRIT 33 % (40-54); HEMOGLOBIN 10.9 G/DL (13.3-17.7); LYMPHOCYTES # (AUTO) 1.1 X 10^3 (1.0-4.0); LYMPHOCYTES % (AUTO) 12 % (12-44); MEAN CORPUSCULAR HEMOGLOBIN 27 PG (25-34); MEAN CORPUSCULAR HGB CONC 34 G/DL (32-36); MEAN CORPUSCULAR VOLUME 82 FL (80-99); MEAN PLATELET VOLUME 10.1 FL (7.4-10.4); MONOCYTES # (AUTO) 1.1 X 10^3 (0.0-1.0); MONOCYTES % (AUTO) 12 % (0-12); NEUTROPHILS # (AUTO) 6.9 X 10^3 (1.8-7.8); NEUTROPHILS % (AUTO) 72 % (42-75); PLATELET COUNT 642 10^3/uL (130-400); RED CELL DISTRIBUTION WIDTH 14.9 % (10.0-14.5)
--- OUTSIDE RECORDS SUMMARY | 2020-03-29 00:05 | XMS REPORT | Continuity of Care Document ---
Demographics Preferred Language Unknown Marital Status Unknown Jewish Affiliation Unknown Race Unknown Ethnic Group Unknown [...] N/A 11/20/2014 Yes No Known Drug Allergies [id number] Drug Allergy Unknown N/A 11/24/2018 Yes No Known Drug Allergies [id number] Drug Allergy Unknown N/A 03/01/2019 Yes IV contrast IV contrast Unknown N/A 03/11/2020 Medications Medication Packaging Start Date St op [...] 784.0 headache 04/26/2008 784.0 headache 04/26/2008 MICHELE SUE, BRENNEN ZAMORANO 784.0 headache 04/26/2008 RYNE ROGERS, BRENNEN ZAMORANO 784.0 headache 04/26/2008 MICHELE VISUAL MERCHANDISING ASSISTANT, BRENNEN ZAMORANO 784.0 headache 04/26/2008 VIRGEN DO, SHERRON K 784.0 headache 04/26/2008 RAFAEL ROGERS RYAN L 784 .0 headache 04/26/2008 VIRGEN [...] DO, SHERRON K 784.0 headache 04/26/2008 BEVERLEY STAMPING DIE MAKER BENCH, OLIVIA M 784.0 headache 04/26/2008 VIRGEN DO, SHERRON K 784.0 headache 04/26/2008 VIRGEN DO, SHERRON K 784.0 headache 04/26/2008 BEVERLEY STAMPING DIE MAKER BENCH, OLIVIA M 784.0 headache 04/26/2008 VIRGEN DO, SHERRON K 784.0 headache 06/09/2008 266.2 B12 DEF W/O ANEMIA 06/09/2008 RYNE ROGERS BRENNEN ZAMORANO 266.2 B12 DEF W/O ANEMIA 06/09/2008 266.2 B12 DEF W/O ANEMIA 06/09/2008 RYNE ROGERS BRENNEN JAUN 266.2 B12 DEF W/O ANEMIA 06/09/2008 RYNE ROGERS BRENNEN ZAMORANO 266.2 B12 DEF W/O ANEMIA 06/09/2008 MICHELE VISUAL MERCHANDISING ASSISTANT BRENNEN ZAMORANO 266.2 B12 DEF W/O ANEMIA [...] JAUN 285.9 ANEMIA 07/04/2008 RYNE ROGERS BRENNEN LEPEH 536.8 Dyspepsia 07/04/2008 285.9 ANEMIA 07/04/2008 536.8 Dysp epsia 07/04/2008 RYNE ROGERS BRENNEN JAUN 285.9 ANEMIA 07/04/2008 MICHELE SUE BRENNEN ZAMORANO 536.8 Dyspepsia 07/04/2008 MICHELE VISUAL MERCHANDISING ASSISTANT, BRENNEN JAUN 285.9 ANEMIA 07/04/2008 MICHELE VISUAL MERCHANDISING ASSISTANT, BRENNEN AJUN 536.8 Dyspepsia 07/04/2008 MICHELE VISUAL MERCHANDISING ASSISTANT, BRENNEN JAUN 285.9 ANEMIA 07/04/2008 MICHELE VISUAL MERCHANDISING ASSISTANT, BRENNEN JAUN 536.8 Dyspepsia 07/04/2008 VIRGEN DO, SHERRON K 285.9 ANEMIA 07/04/2008 VIRGEN DO, SHERRON K 536.8 Dyspepsia 07/04/2008 MADL VISUAL MERCHANDISING ASSISTANT, RYAN L 285 .9 ANEMIA 07/04/2008 MADL VISUAL MERCHANDISING ASSISTANT, RYAN L 536 .8 Dyspepsia 07/04/2008 VIRGEN [...] SHERRON K 536.8 Dyspepsia 07/04/2008 OLIVIA AUGUSTINE 285.9 ANEMIA 07/04/2008 BEVERLEY STAMPING DIE MAKER BENCH, OLIVIA M 536.8 Dyspepsia 07/04/2008 VIRGEN DO, SHERRON K 285.9 ANEMIA 07/04/2008 VIRGEN DO, SHERRON K 536.8 Dyspepsia 07/04/2008 VIRGEN DO, SHERRON K 285.9 ANEMIA 07/04/2008 VIRGEN DO, SHERRON K 536.8 Dyspepsia 07/04/2008 BEVERLEY CNS, OLIVIA M 285.9 ANEMIA 07/04/2008 BEVERLEY DIAZ, OLIVIA M 536.8 Dyspepsia 07/04/2008 VIRGEN DO, SHERRON K 285.9 ANEMIA 07/04/2008 VIRGEN DO, SHERRON K 536.8 Dyspepsia 09/04/2008 528.9 Mout h Pain 09/04/2008 RYNE ROGERS, BRENNEN LEPEH 528.9 Mouth Pain 09/04/2008 528.9 Mout h Pain 09/04/2008 RYNE ROGERS, BRENNEN JAUN 528.9 Mouth Pain 09/04/2008 MICHELE VISUAL MERCHANDISING ASSISTANT, BRENNEN JAUN 528.9 Mouth Pain 09/04/2008 MICHELE VISUAL MERCHANDISING ASSISTANT, BRENNEN JAUN 528.9 Mouth Pain 09/04/2008 VIRGEN DO, SHERRON K 528.9 Mouth Pain 09/04/2008 RAFAEL ROGERS RYAN L 528 .9 Mouth Pain 09/04/2008 [...] fee ling tired or poorly 01/23/2009 MICHELE VISUAL MERCHANDISING ASSISTANT, BRENNEN ZAMORANO 302.72 MALE ERECTILE DISORDER 01/23/2009 MICHELE VISUAL MERCHANDISING ASSISTANT, BRENNEN ZAMORANO 780.79 feeling tired or poorly 01/23/2009 302.72 MAL E ERECTILE DISORDER 01/23/2009 780.79 fee ling tired or poorly 01/23/2009 MICHELE VISUAL MERCHANDISING ASSISTANT, BRENNEN ZAMORANO 302.72 MALE ERECTILE DISORDER 01/23/2009 MICHELE VISUAL MERCHANDISING ASSISTANT, BRENNEN ZAMORANO 780.79 feeling tired or poorly 01/23/2009 MICHELE VISUAL MERCHANDISING ASSISTANT, BRENNEN ZAMORANO 302.72 MALE ERECTILE DISORDER 01/23/2009 MICHELE VISUAL MERCHANDISING ASSISTANT BRENNEN ZAMORANO 780.79 feeling tired or poorly 01/23/2009 MICHELE VISUAL MERCHANDISING ASSISTANT, BRENNEN ZAMORANO 302.72 MALE ERECTILE DISORDER 01/23/2009 MICHELE VISUAL MERCHANDISING ASSISTANT, BRENNEN ZAMORANO 780.79 feeling tired or poorly 01/23/2009 VIRGEN DO, SHERRON K 302.72 MALE ERECTILE DISORDER 01/23/2009 VIRGEN DO, SHERRON K 780.79 feeling tired or poorly 01/23/2009 MADL VISUAL MERCHANDISING ASSISTANT, RYAN L 302 .72 MALE ERECTILE DISORDER 01/23/2009 MADL VISUAL MERCHANDISING ASSISTANT, RYAN L 780 .79 feeling tired or [...] Pain 03/06/2009 789.00 Abd ominal Pain 03/06/2009 RYNE ROGERS, BRENNEN ZAMORANO 789.00 Abdominal Pain 03/06/2009 MICHELE BRENNEN ROGERS 789.00 Abdominal Pain 03/06/2009 MICHELE BRENNEN ROGERS 789.00 Abdominal Pain 03/06/2009 VIRGEN DO, SHERRON [...] SUE BRENNEN ZAMORANO 307.40 INSOMNIA 06/13/2009 MICHELE VISUAL MERCHANDISING ASSISTANT, BRENNEN ZAMORANO V04.81 FLU SHOT 06/13/2009 307.40 INS OMNIA 06/13/2009 V04.81 FLU SHOT 06/13/2009 MICHELE VISUAL MERCHANDISING ASSISTANT, BRENNEN ZAMORANO 307.40 INSOMNIA 06/13/2009 MICHELE VISUAL MERCHANDISING ASSISTANT, BRENNEN ZAMORNAO V04.81 FLU SHOT 06/13/2009 MICHELE VISUAL MERCHANDISING ASSISTANT, BRENNEN ZAMORANO 307.40 INSOMNIA 06/13/2009 MICHELE VISUAL MERCHANDISING ASSISTANT, BRENNEN ZAMORANO V04.81 FLU SHOT 06/13/2009 MICHELE VISUAL MERCHANDISING ASSISTANT, BRENNEN ZAMORANO 307.40 INSOMNIA 06/13/2009 MICHELE VISUAL MERCHANDISING ASSISTANT, BRENNEN ZAMORANO V04.81 FLU SHOT 06/13/2009 VIRGEN DO, SHERRON K 307.40 INSOMNIA 06/13/2009 VIRGEN DO, SHERRON K V04.81 FLU SHOT 06/13/2009 MADL VISUAL MERCHANDISING ASSISTANT, RYAN L 307 .40 INSOMNIA 06/13/2009 MADL VISUAL MERCHANDISING ASSISTANT, RYAN L V04 .81 FLU SHOT 06/13/2009 [...] K V04.81 FLU SHOT 06/13/2009 VIRGEN DO, SHRERON K 307.40 INSOMNIA 06/13/2009 VIRGEN DO, SHERRON K V04.81 FLU SHOT 06/13/2009 OLIVIA AUGUSTINE M 307.40 INSOMNIA 06/13/2009 OLIVIA AUGUSTINE M V04.81 FLU SHOT 06/13/2009 VIRGEN DO, SHERRON K 307.40 INSOMNIA 06/13/2009 VIRGEN DO, SHERRON K V04.81 FLU SHOT 06/13/2009 VIRGEN DO, SHERRON K 307.40 INSOMNIA 06/13/2009 VIRGEN DO, SHERRON K V04.81 FLU SHOT 06/13/2009 OLIVIA AUGUSTINE M 307.40 INSOMNIA 06/13/2009 BEVERLEY STAMPING DIE MAKER BENCHOLIVIA V04.81 FLU SHOT 06/13/2009 VIRGEN DO, SHERRON K 307.40 INSOMNIA 06/13/2009 VIRGEN DO, SHERRON K V04.81 FLU SHOT 09/11/2009 728.85 Mus jose Spasm 09/11/2009 847.9 Spra in Back 09/11/2009 MICHELE VISUAL MERCHANDISING ASSISTANT, BRENNEN LEPEH 728.85 Muscle Spasm 09/11/2009 MICHELE VISUAL MERCHANDISING ASSISTANT, BRENNEN ZAMORANO 847.9 Sprain Back 09/11/2009 728.85 Mus jose Spasm 09/11/2009 847.9 Spra in Back 09/11/2009 MICHELE VISUAL MERCHANDISING ASSISTANT, BRENNEN LEPEH 728.85 Muscle Spasm 09/11/2009 MICHELE VISUAL MERCHANDISING ASSISTANT, BRENNEN ZAMORANO 847.9 Sprain Back 09/11/2009 MICHELE VISUAL MERCHANDISING ASSISTANT, BRENNEN LEPEH 728.85 Muscle Spasm 09/11/2009 MICHELE VISUAL MERCHANDISING ASSISTANT, BRENNEN LEPEH 847.9 Sprain Back 09/11/2009 MICHELE VISUAL MERCHANDISING ASSISTANT, BRENNEN LEPEH 728.85 Muscle Spasm 09/11/2009 MICHELE VISUAL MERCHANDISING ASSISTANT, BRENNEN ZAMORANO 847.9 Sprain Back 09/11/2009 VIRGEN DO, SHERRON K 728.85 Muscle Spasm 09/11/2009 VIRGEN DO, SHERRON K 847.9 Sprain Back 09/11/2009 MADL VISUAL MERCHANDISING ASSISTANT, RYAN L 728 .85 Muscle Spasm 09/11/2009 MADL VISUAL MERCHANDISING ASSISTANT, RYAN L 847 .9 Sprain Back 09/11/2009 [...] OLIVIA M 728.85 Muscle Spasm 09/11/2009 BEVERLEY STAMPING DIE MAKER BENCHOLIVIA M 847.9 Sprain Back 09/11/2009 VIRGEN DO, SHERRON K 728.85 Muscle Spasm 09/11/2009 VIRGEN DO, SHERRON K 847.9 Sprain Back 09/11/2009 VIRGEN DO, SHERRON K 728.85 Muscle Spasm 09/11/2009 VIRGEN DO, SHERRON K 847.9 Sprain Back 09/11/2009 BEVERLEY DIAZ, OLIVIA M 728.85 Muscle Spasm 09/11/2009 BEVERLEY STAMPING DIE MAKER BENCH, OLIVIA M 847.9 Sprain Back 09/11/2009 VIRGEN DO, SHERRON K 728.85 Muscle Spasm 09/11/2009 VIRGEN DO, SHERRON K 847.9 Sprain Back 10/23/2009 NODX No Di agnosis 10/23/2009 MICHELE VISUAL MERCHANDISING ASSISTANTBRENNEN NODX No Diagnosis 10/23/2009 NODX No Di agnosis 10/23/2009 MICHELE VISUAL MERCHANDISING ASSISTANT, BRENNEN ZAMORANO NODX No Diagnosis 10/23/2009 MICHELE VISUAL MERCHANDISING ASSISTANT, BRENNEN ZAMORANO NODX No Diagnosis 10/23/2009 MICHELE VISUAL MERCHANDISING ASSISTANTBRENNEN NODX No Diagnosis 10/23/2009 VIRGEN DO, SHERRON K NODX No Diagnosis 10/23/2009 RYAN HALL APRN NOD X No Diagnosis 10/23/2009 VIRGEN DO, SHERRON K NODX No Diagnosis 10/23/2009 VIRGEN DO, SHERRON K NODX No Diagnosis 10/23/2009 VIRGEN DO, HSERRON K NODX No Diagnosis 10/23/2009 VIRGEN DO, SHERRON K NODX No Diagnosis 10/23/2009 VIRGEN DO, SHERRON K NODX No Diagnosis 10/23/2009 VIRGEN DO, SHERRON K NODX No Diagnosis 10/23/2009 VIRGEN DO, SHERRON K NODX No Diagnosis 10/23/2009 VIRGEN DO, SHERRON K NODX No Diagnosis 10/23/2009 VIRGEN DO, SHERRON K NODX No Diagnosis 10/23/2009 VIRGEN DO, SHERRON K NODX No Diagnosis 10/23/2009 BEVERLEY STAMPING DIE MAKER BENCH, OLIVIA M N ODX No Diagnosis 10/23/2009 VIRGEN DO, SHERRON K NODX No Diagnosis 10/23/2009 VIRGEN DO, SHERRON K NODX No Diagnosis 10/23/2009 BEVERLEY STAMPING DIE MAKER BENCH, OLIVIA M N ODX No Diagnosis 10/23/2009 VIRGEN DO, SHERRON K NODX No Diagnosis 11/06/2009 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 11/06/2009 RYNE ROGERS BRENNEN JAUN 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 11/06/2009 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 11/06/2009 BRENNEN MICHELE APRNH 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 11/06/2009 BRENNEN MICHELE APRNH 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 11/06/2009 RYNE ROGERS BRENNEN JAUN 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 11/06/2009 VIRGEN DO, [...] MICHELE APRN 300.00 ANXIETY UNSPEC 02/19/2010 MICHELEBRENNEN SUMNER APRN 300.00 ANXIETY UNSPEC 02/19/2010 BRENNEN MICHELE [...] AUGUSTINE 300.00 ANXIETY UNSPEC 02/19/2010 VIRGEN DO, SHRERON K 300.00 ANXIETY UNSPEC 02/19/2010 VIRGEN DO, SHERRON K 300.00 ANXIETY UNSPEC 02/19/2010 OLIVIA AUGUSTINE M 300.00 ANXIETY UNSPEC 02/19/2010 VIRGEN DO, SHERRON K 300.00 ANXIETY UNSPEC 05/09/2010 719.40 JOLIE N IN JOINT, SITE UNSPECIFIED 05/09/2010 MICHELE VISUAL MERCHANDISING ASSISTANT, BRENNEN LEPEH 719.40 PAIN IN JOINT, SITE UNSPECIFIED 05/09/2010 719.40 JOLIE N IN JOINT, SITE UNSPECIFIED 05/09/2010 MICHELE VISUAL MERCHANDISING ASSISTANT, BRENNEN LEPEH 719.40 PAIN IN JOINT, SITE UNSPECIFIED 05/09/2010 MICHELE VISUAL MERCHANDISING ASSISTANT, BRENNEN LEPEH 719.40 PAIN IN JOINT, SITE UNSPECIFIED 05/09/2010 MICHELE VISUAL MERCHANDISING ASSISTANT, RBENNEN LEPEH 719.40 PAIN IN JOINT, SITE UNSPECIFIED 05/09/2010 [...] UNSPECIFIED NATURE OF RESPIRATORY SYSTEM 06/13/2010 MICHELE VISUAL MERCHANDISING ASSISTANT, BRENNEN JAUN 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 06/13/2010 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 06/13/2010 MICHELE VISUAL MERCHANDISING ASSISTANT, BRENNEN JAUN 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 06/13/2010 MICHELE VISUAL MERCHANDISING ASSISTANT, BRENNEN JAUN 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 06/13/2010 MICHELE VISUAL MERCHANDISING ASSISTANT, BRENNEN LEPEH 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 06/13/2010 VIRGEN DO, SHERRON K 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 06/13/2010 MADL VISUAL MERCHANDISING ASSISTANT, RYAN L 239 .1 NEOPLASMS OF UNSPECIFIED [...] OF UNSPECIFIED NATURE OF RESPIRATORY SYSTEM 06/13/2010 PARAM MELCHOR SHERRON K 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 06/13/2010 PARAM MELCHOR SHERRON Syeda 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] ROGERS 300.02 AN GEN ANXIETY 07/22/2010 MICHELE SUE BRENNEN ZAMORANO 301.9 PD PERS DIS NOS 07/22/2010 MICHELE SUE, BRENNEN ZAMORANO 309.81 AN PTSD 07/22/2010 VIRGEN DO, SHERRON K 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 07/22/2010 VIRGEN DO, SHERRON K 300.02 AN GEN ANXIETY 07/22/2010 VIRGEN DO, SHERRON K 301.9 PD PERS DIS NOS 07/22/2010 VIRGEN DO, SHERRON K 309.81 AN PTSD 07/22/2010 MADL VISUAL MERCHANDISING ASSISTANT, RYAN L 295 .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 07/22/2010 MADL VISUAL MERCHANDISING ASSISTANT, RYAN L 300 .02 AN GEN ANXIETY 07/22/2010 MADL VISUAL MERCHANDISING ASSISTANT, RYAN L 301 .9 PD PERS DIS NOS 07/22/2010 MADL VISUAL MERCHANDISING ASSISTANT, RYAN L 309 .81 AN PTSD 07/22/2010 [...] DO, SHERRON K 309.81 AN PTSD 07/22/2010 OLIVIA AUGUSTINE M 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 07/22/2010 BEVERLEY STAMPING DIE MAKER BENCHOLIVIA M 300.02 AN GEN ANXIETY 07/22/2010 BEVERLEY STAMPING DIE MAKER BENCHOLIVIA M 301.9 PD PERS DIS NOS 07/22/2010 OLIVIA AUGUSTINE M 309.81 AN PTSD 07/22/2010 VIRGEN DO, [...] SHERRON K 309.81 AN PTSD 07/22/2010 BEVERLEY STAMPING DIE MAKER BENCH, OLIVIA M 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 07/22/2010 BEVERLEY STAMPING DIE MAKER BENCH, OLIVIA M 300.02 AN GEN ANXIETY 07/22/2010 BEVERLEY STAMPING DIE MAKER BENCH, OLIVIA M 301.9 PD PERS DIS NOS 07/22/2010 BEVERLEY STAMPING DIE MAKER BENCH, OLIVIA M 309.81 AN PTSD 07/22/2010 VIRGEN [...] SHERRON K 564.1 Irritable Bowel Syndrome 08/08/2010 BEVERLEY DIAZ, OLIVIA M 564.1 Irritable Bowel Syndrome 08/08/2010 VIRGEN DO, SHERRON K 564.1 Irritable Bowel Syndrome 08/08/2010 VIRGEN DO, SHERRON K 564.1 Irritable Bowel Syndrome 08/08/2010 BEVERLEY DIAZ, OLIVIA M 564.1 Irritable Bowel Syndrome 08/08/2010 VIRGEN DO, [...] Of Skin And Subcutaneous Tissue 12/17/2010 RYNE MONTES DE OCANBRENNEN 562.10 Diverticulosis Of Colon (without Hemorrhage) 12/17/2010 BRENNEN MICHELE APRN 709.9 Unspecified Disorder Of Skin And Subcutaneous Tissue 12/17/2010 VIRGEN DO, SHERRON K 562.10 Diverticulosis Of Colon (without Hemorrhage) 12/17/2010 VIRGEN DO, SHERRON K 709.9 Unspecified Disorder Of Skin And Subcutaneous Tissue 12/17/2010 LAURAL VISUAL MERCHANDISING ASSISTANT, RYAN L 562 .10 Diverticulosis Of Colon (without Hemorrhage) 12/17/2010 MADL VISUAL MERCHANDISING ASSISTANT, RYAN L 709 .9 Unspecified Disorder Of [...] And Abscess Of Unspecified Sites 02/23/2011 MICHELE VISUAL MERCHANDISING ASSISTANT, BRENNEN ZAMORANO 452 Portal Vein Thrombosis 02/23/2011 MICHELE VISUAL MERCHANDISING ASSISTANT, BRENNEN LEPEH 682.9 Cellulitis And Abscess Of Unspecified Sites 02/23/2011 452 Portal Vein Thrombosis 02/23/2011 682.9 Cell ulitis And Abscess Of Unspecified Sites 02/23/2011 MICHELE VISUAL MERCHANDISING ASSISTANT, BRENNEN ZAMORANO 45Joseph Portal Vein Thrombosis 02/23/2011 MICHELE VISUAL MERCHANDISING ASSISTANT, BRENNEN LEPEH 682.9 Cellulitis And Abscess Of Unspecified Sites 02/23/2011 MICHELE VISUAL MERCHANDISING ASSISTANT, BRENNEN ZAMORANO 452 Portal Vein Thrombosis 02/23/2011 MICHELE VISUAL MERCHANDISING ASSISTANT, BRENNEN ZAMORANO 682.9 Cellulitis And Abscess Of Unspecified Sites 02/23/2011 MICHELE VISUAL MERCHANDISING ASSISTANT, BRENNEN ZAMORANO 45Joseph Portal Vein Thrombosis 02/23/2011 MICHELE VISUAL MERCHANDISING ASSISTANT, BRENENN ZAMORANO 682.9 Cellulitis And Abscess Of Unspecified Sites 02/23/2011 VIRGEN DO, SHERRON K 452 Portal Vein Thrombosis 02/23/2011 VIRGEN DO, SHERRON K 682.9 Cellulitis And Abscess Of Unspecified Sites 02/23/2011 MADL VISUAL MERCHANDISING ASSISTANT, RYAN L 452 Portal Vein Thrombosis 02/23/2011 MADL VISUAL MERCHANDISING ASSISTANT, RYAN L 682 .9 Cellulitis And Abscess [...] Cellulitis And Abscess Of Unspecified Sites 02/23/2011 OLIIVA AUGUSTINE 4 52 Portal Vein Thrombosis 02/23/2011 [...] MICHELE APRN 780.50 SLEEP DISTURBANCE, UNSPECIFIED 02/24/2011 MICHELE VISUAL MERCHANDISING ASSISTANT, BRENNEN ZAMORANO V58.30 Encounter For Change Or Removal Of Nonsurgical Wound D ressing 02/24/2011 780.50 SLE EP DISTURBANCE, UNSPECIFIED 02/24/2011 V58.30 Enc ounter For Change Or Removal Of Nonsurgical Wound Dressing 02/24/2011 MICHELE VISUAL MERCHANDISING ASSISTANT, BRENNEN ZAMORANO 780.50 SLEEP DISTURBANCE, UNSPECIFIED 02/24/2011 MICHELE VISUAL MERCHANDISING ASSISTANT, BRENNEN ZAMORANO V58.30 Encounter For Change Or Removal Of Nonsurgical Wound D ressing 02/24/2011 MICHELE VISUAL MERCHANDISING ASSISTANT, BRENNEN ZAMORANO 780.50 SLEEP DISTURBANCE, UNSPECIFIED 02/24/2011 MICHELE VISUAL MERCHANDISING ASSISTANT, BRENNEN ZAMORANO V58.30 Encounter For Change Or Removal Of Nonsurgical Wound D ressing 02/24/2011 MICHELE VISUAL MERCHANDISING ASSISTANT, BRENNEN ZAMORANO 780.50 SLEEP DISTURBANCE, UNSPECIFIED 02/24/2011 MICHELE VISUAL MERCHANDISING ASSISTANT, BRENNEN ZAMORANO V58.30 Encounter For Change Or Removal Of Nonsurgical Wound D ressing 02/24/2011 VIRGEN DO, SHERRON K 780.50 SLEEP DISTURBANCE, UNSPECIFIED 02/24/2011 VIRGEN DO, SHERRON K V58.30 Encounter For Change Or Removal Of Nonsurgical Wound Dressing 02/24/2011 MADL VISUAL MERCHANDISING ASSISTANT, RYAN L 780 .50 SLEEP DISTURBANCE, UNSPECIFIED 02/24/2011 MADL VISUAL MERCHANDISING ASSISTANT, RYAN L V58 .30 Encounter For Change [...] V68.1 ISSU E OF REPEAT PRESCRIPTIONS 03/18/2011 MICHELE VISUAL MERCHANDISING ASSISTANTBRENNEN V68.1 ISSUE OF REPEAT PRESCRIPTIONS 03/18/2011 V68.1 ISSU E OF REPEAT PRESCRIPTIONS 03/18/2011 BRENNEN MICHELE APRN V68.1 ISSUE OF REPEAT PRESCRIPTIONS 03/18/2011 BRENNEN MICHELE APRN V68.1 ISSUE OF REPEAT PRESCRIPTIONS 03/18/2011 BRENNEN MICHELE APRN V68.1 ISSUE OF REPEAT PRESCRIPTIONS 03/18/2011 VIRGEN DO, SHERRON K V68.1 ISSUE OF REPEAT PRESCRIPTIONS 03/18/2011 RAFAEL ROGERS RYAN L V68 .1 ISSUE OF REPEAT PRESCRIPTIONS 03/18/2011 [...] RESISTANT STAPHYLOCOCCUS AUR 03/24/2011 Ot 305.1 TOBA RESIDENT CARE MANAGER USE DISORDER 03/24/2011 Ot 530.81 ESO PHAGEAL [...] V58.69 MED ICATION HIGH RISK 03/25/2011 MICHELE SUE BRENNEN ZAMORANO V58.69 MEDICATION HIGH RISK 03/25/2011 V58.69 MED ICATION HIGH RISK 03/25/2011 MICHELE VISUAL MERCHANDISING ASSISTANT, BRENNEN ZAMORANO V58.69 MEDICATION HIGH RISK 03/25/2011 MICHELE VISUAL MERCHANDISING ASSISTANT BRENNEN ZAMORANO V58.69 MEDICATION HIGH RISK 03/25/2011 MICHELE VISUAL MERCHANDISING ASSISTANT, BRENNEN ZAMORANO V58.69 MEDICATION HIGH RISK 03/25/2011 VIRGEN DO, SHERRON K V58.69 MEDICATION HIGH RISK 03/25/2011 RYAN HALL APRN V58 .69 MEDICATION HIGH RISK 03/25/2011 VIRGEN [...] OCANBRENNEN V12.04 PERSONAL HISTORY OF METHICILLIN RESISTANT STAPHYLOCOCC US AUREUS 03/26/2011 V12.04 PER MATHEW HISTORY OF METHICILLIN RESISTANT STAPHYLOCOCCUS AUREUS 03/26/2011 RYNE MONTES DE OCANBRENNEN V12.04 PERSONAL HISTORY OF METHICILLIN RESISTANT STAPHYLOCOCC US AUREUS 03/26/2011 BRENNEN MICHELE APRN V12.04 PERSONAL HISTORY OF METHICILLIN RESISTANT STAPHYLOCOCC US AUREUS 03/26/2011 MICHELE VISUAL MERCHANDISING ASSISTANTBRENNEN V12.04 PERSONAL HISTORY OF METHICILLIN RESISTANT STAPHYLOCOCC US AUREUS 03/26/2011 VIRGEN DO, SHERRON K 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 03/26/2011 RAFAEL KIM ROGERSWNYDelma Mendez V12 .04 PERSONAL HISTORY OF METHICILLIN RESISTANT [...] METHICILLIN RESISTANT STAPHYLOCOCCUS AUREUS 03/26/2011 VIRGEN DO, SEHRRON K 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 03/26/2011 VIRGEN DO, SHERRON K 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 03/26/2011 VIRGEN DO, SHERRON K 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 03/26/2011 VIRGEN DO, SHERRON K 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 03/26/2011 OLIVIA AUGUSTINE V12.04 PERSONAL HISTORY OF METHICILLIN RESISTANT STAPHYLOCOCC US AUREUS 03/26/2011 VIRGEN DO, SHERRON K 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 03/26/2011 VIRGEN DO, SHERRON K 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 03/26/2011 OLIVIA AUGUSTINE V12.04 PERSONAL HISTORY OF METHICILLIN RESISTANT STAPHYLOCOCC US AUREUS 03/26/2011 VIRGEN DO, SHERRON K 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 09/08/2011 Ot 276.51 09/08/2011 Ot 295.30 09/08/2011 Ot 300.00 09/08/2011 Ot 304.00 09/08/2011 Ot 305.1 09/08/2011 Ot 309.81 09/08/2011 Ot 722.91 09/08/2011 Ot V12.51 09/20/2011 Ot 786.50 09/20/2011 Ot 786.52 09/30/2011 298.9 P PS YCHOSIS NOS 09/30/2011 IMCHELE VISUAL MERCHANDISING ASSISTANT, BRENNEN JAUN 298.9 P PSYCHOSIS NOS 09/30/2011 298.9 P PS YCHOSIS NOS 09/30/2011 MICHELE VISUAL MERCHANDISING ASSISTANT, BRENNEN LEPEH 298.9 P PSYCHOSIS NOS 09/30/2011 MICHELE VISUAL MERCHANDISING ASSISTANT, BRENNEN ZAMORANO 298.9 P PSYCHOSIS NOS 09/30/2011 MICHELE VISUAL MERCHANDISING ASSISTANT, BRENNEN ZAMORANO 298.9 P PSYCHOSIS NOS 09/30/2011 VIRGEN DO, SHERRON K 298.9 P PSYCHOSIS NOS 09/30/2011 MADL VISUAL MERCHANDISING ASSISTANT, RYAN L 298 .9 P PSYCHOSIS NOS [...] K 298.9 P PSYCHOSIS NOS 09/30/2011 BEVERLEY STAMPING DIE MAKER BENCH, OLVIIA M 298.9 P PSYCHOSIS NOS 09/30/2011 VIRGEN DO, SHERRON K 298.9 P PSYCHOSIS NOS 09/30/2011 VIRGEN DO, SHERRON K 298.9 P PSYCHOSIS NOS 09/30/2011 BEVERLEY STAMPING DIE MAKER BENCH, OLIVIA M 298.9 P PSYCHOSIS NOS 09/30/2011 VIRGEN DO, SHERRON K 298.9 P PSYCHOSIS NOS 10/04/2013 BRENNEN MICHELE APRN 346.90 MIGRAINE HEADACHE 10/04/2013 BRENNEN MICHELE APRN 346.90 MIGRAINE HEADACHE 10/04/2013 VIRGEN DO, SHERRON K 346.90 MIGRAINE HEADACHE 10/04/2013 RAFAEL MONTES DE OCAN, RYAN L 346 .90 MIGRAINE HEADACHE 10/04/2013 [...] SHERRON K 346.90 MIGRAINE HEADACHE 10/04/2013 BEVERLEY STAMPING DIE MAKER BENCH, OLIVIA M 346.90 MIGRAINE HEADACHE 10/04/2013 VIRGEN DO, SHERRON K 346.90 MIGRAINE HEADACHE 10/04/2013 VIRGEN DO, SHERRON K 346.90 MIGRAINE HEADACHE 10/04/2013 BEVERLEY STAMPING DIE MAKER BENCH, OLIVIA M 346.90 MIGRAINE HEADACHE 10/04/2013 VIRGEN DO, SHERRON K 346.90 MIGRAINE HEADACHE 02/13/2014 VIRGEN DO, SHERRON K 338.29 OTHER CHRONIC PAIN 02/13/2014 MADVanessa VISUAL MERCHANDISING ASSISTANT, RYAN L 338 .29 OTHER CHRONIC PAIN [...] K 338.29 OTHER CHRONIC PAIN 02/19/2014 MADL VISUAL MERCHANDISING ASSISTANT, RYAN L 796 .9 OTHER NONSPECIFIC ABNORMAL [...] OTHER NONSPECIFIC ABNORMAL FINDINGS 02/19/2014 OLIVIA AUGUSTINE 796.9 OTHER NONSPECIFIC ABNORMAL FINDINGS 02/19/2014 VIRGEN [...] AUGUSTINE M 729.5 PAIN IN LIMB 07/23/2014 SHERRON [...] K 311 MO DEPRESS NOS 08/22/2014 BEVERLEY CNS, OILVIA M 3 11 MO DEPRESS NOS 08/22/2014 YOCASTA VIRGEN DOA K 311 MO DEPRESS NOS 11/05/2014 OLIVIA AUGUSTINE M 296.32 MO DEPRESSIVE RECURRENT MODERATE 11/05/2014 SHERRON [...] MD Ot 414. 01 CORONARY ATHEROSCLEROSIS OF [place] CORON 02/18/2015 GILES CHRISTIANSON MD Ot 424. [...] PAIN 06/27/2017 SAJAN CRUZ MD, Ot Z79.82 HALFWAY (CURRENT) USE OF ASPIRIN 06/27/2017 SAJAN CRUZ MD, Ot Z90.49 ACQUIRED ABSENCE OF OTHER SPECIFIED PART 06/28/2017 TERESA MENESES MD Ot K92. 1 MELENA 06/28/2017 TERESA MENESES MD Ot R10. 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 1 MELENA 06/30/2017 TERESA MENESES MD Ot R10. 9 UNSPECIFIED ABDOMINAL PAIN 06/30/2017 TERESA MENESES MD Ot K92. 1 MELENA 06/30/2017 TERESA MENESES MD Ot R10. 9 UNSPECIFIED ABDOMINAL PAIN 07/12/2017 [...] DEPRESSIVE DISORDER, SINGLE EPISOD 07/14/2017 IMMANUEL FRANCO MD Ot F41.9 ANXIETY DISORDER, UNSPECIFIED 07/14/2017 IMMANUEL [...] PAIN 07/14/2017 IMMANUEL FRANCO MD, Ot Z79.82 HEAVY LIFT RIGGER (CURRENT) USE OF ASPIRIN 07/14/2017 IMMANUEL FRANCO MD, Ot Z79.89 9 OTHER HEAVY LIFT RIGGER (CURRENT) DRUG THERAPY 07/14/2017 IMMANUEL FRANCO MD, [...] DO Ot I25.10 ATHSCL HEART DISEASE OF [place] CORONARY 08/23/2017 JUAN MANUEL EVANS DO Ot [...] F32.9 MAJOR DEPRESSIVE DISORDER, SINGLE EPISOD 08/24/2017 NATHAN MELCHOR JUAN MANUEL Ot F41.9 ANXIETY DISORDER, UNSPECIFIED 08/24/2017 NATHAN MELCHOR JUAN MANUEL Ot I25.10 ATHSCL HEART DISEASE OF [place] CORONARY 08/24/2017 NATHAN MELCHOR, JUAN MANUEL Ot I26.99 OTHER PULMONARY EMBOLISM WITHOUT ACUTE C 08/24/2017 NATHAN MELCHOR JUAN MANUEL Ot I48.0 PAROXYSMAL ATRIAL FIBRILLATION 08/24/2017 JAMILA EVANS DOI Ot K21.9 GASTRO-ESOPHAGEAL REFLUX DISEASE WITHOUT 08/24/2017 NATHAN MELCHOR JUAN MANUEL Ot R09.02 HYPOXEMIA 08/24/2017 NATHAN MELCHOR JUAN MANUEL Ot Z86.71 8 PERSONAL HISTORY OF OTHER VENOUS THROMBO 08/24/2017 JAMILA EVANS DOI Ot Z87.89 1 PERSONAL HISTORY OF NICOTINE DEPENDENCE 08/24/2017 NATHAN MELCHOR JUAN MANUEL Ot Z90.81 ACQUIRED ABSENCE OF SPLEEN 08/24/2017 NATHAN MELCHOR JUAN MANUEL Ot Z98.1 ARTHRODESIS STATUS 08/24/2017 JAMILA EVANS DOI Ot B18.2 CHRONIC VIRAL HEPATITIS C 08/24/2017 NATHAN MELCHOR JUAN MANUEL Ot F32.9 MAJOR DEPRESSIVE DISORDER, SINGLE EPISOD 08/24/2017 NATHAN MELCHOR JUAN MANUEL Ot F41.9 ANXIETY DISORDER, UNSPECIFIED 08/24/2017 NATHAN MELCHOR JUAN MANUEL Ot I25.10 ATHSCL HEART DISEASE OF [place] CORONARY 08/24/2017 NATHAN MELCHOR JUAN MANUEL Ot I26.99 OTHER PULMONARY EMBOLISM WITHOUT ACUTE C 08/24/2017 NATHAN MELCHOR JUAN MANUEL Ot I48.0 PAROXYSMAL ATRIAL FIBRILLATION 08/24/2017 JAMILA EAVNS DOI Ot K21.9 GASTRO-ESOPHAGEAL REFLUX DISEASE WITHOUT 08/24/2017 NATHAN MELCHOR JUAN MANUEL Ot R07.89 OTHER CHEST PAIN 08/24/2017 NATHAN MELCHOR JUAN MANUEL Ot R09.02 HYPOXEMIA 08/24/2017 JUAN MANUEL EVANS DO Ot Z23 ENCOUNTER FOR IMMUNIZATION 08/24/2017 JAMILA EVANS DOI Ot Z86.71 8 PERSONAL HISTORY OF OTHER VENOUS THROMBO 08/24/2017 NATHAN MELCHOR JUAN MANUEL Ot Z87.89 1 PERSONAL HISTORY OF NICOTINE DEPENDENCE 08/24/2017 NATHAN MELCHOR JUAN MANUEL Ot Z90.81 ACQUIRED ABSENCE OF SPLEEN 08/24/2017 NATHAN MELCHOR JUAN MANUEL Ot Z98.1 ARTHRODESIS STATUS 09/01/2017 SIVA MELCHOR MAHI Landa Ot F41.9 ANXIETY DISORDER, UNSPECIFIED 09/01/2017 SIVA MAHI K Ot G43.909 MIGRAINE, UNSP, NOT [...] M79.604 PAIN IN RIGHT LEG 09/01/2017 SIVA ANILAA K Ot R25.2 CRAMP AND SPASM 09/01[facility] Z[facility].01 HALFWAY (CURRENT) USE OF ANTICOAGULANT 09/01/2017 MAHI PANIAGUA DO Ot Z79.82 HEAVY LIFT RIGGER (CURRENT) USE OF ASPIRIN 09/01/2017 SIVA MAHI MELCHOR Ot Z86.14 PERSONAL HISTORY OF METHICILLIN RESIS ST 09/01/2017 SIVA MELCHOR MAHI Syeda Ot Z86.718 PERSONAL HISTORY OF OTHER VENOUS THROMBO 09/01/2017 SIVA MAHI MELCHOR Ot Z87.891 PERSONAL HISTORY OF NICOTINE DEPENDENCE 09/08/2017 SIVA MAHI K Ot F41.9 ANXIETY DISORDER, UNSPECIFIED 09/08/2017 SIVA MAHI K Ot G43.909 MIGRAINE, UNSP, NOT INTRACTABLE, WITHOUT 09/08/2017 SIVA DO MAHI K Ot I26.99 OTHER PULMONARY EMBOLISM WITHOUT ACUTE C 09/08/2017 SIVA MAHI K Ot I48.91 UNSPECIFIED ATRIAL FIBRILLATION 09/08/2017 SIVA DO MAHI K Ot K21.9 GASTRO-ESOPHAGEAL REFLUX DISEASE WITHOUT 09/08/2017 SIVA DOANILAA K Ot M47.9 SPONDYLOSIS, UNSPECIFIED 09/08/2017 SIVA DO MAHI K Ot M79.604 PAIN IN RIGHT LEG 09/08/2017 SIVA DOANILAA K Ot R25.2 CRAMP AND SPASM 09/08/2017 SIVA DOANILAA K Ot Z79.01 HEAVY LIFT RIGGER (CURRENT) USE OF ANTICOAGULANT 09/08/2017 MAHI PANIAGUA DO Ot Z79.82 HEAVY LIFT RIGGER (CURRENT) USE OF ASPIRIN 09/08/2017 MAHI PANIAGUA DO Ot Z86.14 PERSONAL HISTORY OF METHICILLIN RESIS ST 09/08/2017 MAHI PANIAGUA DO Ot Z86.718 PERSONAL HISTORY OF OTHER VENOUS THROMBO 09/08/2017 MAHI PANIAGUA DO Ot Z87.891 PERSONAL HISTORY OF NICOTINE DEPENDENCE 09/24/2017 NATHAN MELCHOR JUAN MANUEL Ot F32.9 MAJOR DEPRESSIVE DISORDER, SINGLE EPISOD 09/24/2017 NATHAN MELCHOR JUAN MANUEL Ot F41.9 ANXIETY DISORDER, UNSPECIFIED 09/24/2017 JAMILA EVANS DOI Ot G89.29 OTHER CHRONIC PAIN 09/24/2017 JAMILA EVANS DOI Ot I25.10 ATHSCL HEART DISEASE OF [place] CORONARY 09/24/2017 NATHAN MELCHOR JUAN MANUEL Ot I47.1 SUPRAVENTRICULAR TACHYCARDIA 09/24/2017 NATHAN MELCHOR JUAN MANUEL Ot I48.0 PAROXYSMAL ATRIAL FIBRILLATION 09/24/2017 NATHAN MELCHOR JUAN MANUEL Ot K21.9 GASTRO-ESOPHAGEAL REFLUX DISEASE WITHOUT 09/24/2017 NATHAN MELCHOR JUAN MANUEL Ot K59.09 OTHER CONSTIPATION 09/24/2017 NATHAN MELCHOR JUAN MANUEL Ot Z79.89 1 HALFWAY (CURRENT) USE OF OPIATE ANALGE 09/24/2017 NATHAN MELCHOR JUAN MANUEL Ot Z79.89 9 OTHER HALFWAY (CURRENT) DRUG THERAPY 09/24/2017 NATHAN MELCHOR JUAN [...] UNSPECIFIED 09/25/2017 MAHI PANIAGUA DO Ot Z79.02 HEAVY LIFT RIGGER (CURRENT) USE OF ANTITHROMBOTI 09/25/2017 MAHI PANIAGUA [...] W/O MYELOPATHY OR RADICULOPA 02/18/2018 Ot M50.31 OT ER CERVICAL DISC DEGENERATION, HIGH 02/18/2018 Ot Z98.1 ARTH RODESIS STATUS 03/07/2018 EMILIE BANEGAS VISUAL MERCHANDISING ASSISTANT Ot I86.1 SCROTAL VARICES 03/07/2018 EMILIE BANEGAS VISUAL MERCHANDISING ASSISTANT Ot K46.9 UNSPECIFIED ABDOMINAL HERNIA WITHOUT OBS 03/07/2018 EMILIE BANEGAS VISUAL MERCHANDISING ASSISTANT Ot N43.3 HYDROCELE, UNSPECIFIED 03/07/2018 EMILIE BANEGAS VISUAL MERCHANDISING ASSISTANT Ot N50.3 CYST OF EPIDIDYMIS 06/24/2018 ERIKA DRAPER, JEOVANNY Mayo Ot B18. 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 2 CHRONIC VIRAL HEPATITIS C 07/05/2018 JEOVANNY JAMES MD P Ot B18. 2 CHRONIC VIRAL HEPATITIS C 08/03/2018 [place]ARR[place] GARAY Ot Z01.818 ENCOUNTER FOR OTHER PREPROCEDURAL EXAMIN 08/04/2018 [place] GARAY Ot Z01.818 ENCOUNTER FOR OTHER PREPROCEDURAL EXAMIN 08/05/2018 Champagne, Kymberly-Justice W 401.9 UNSPECIFIED ESSENTIAL HYPERTENSION 08/05/2018 Champagne, Kymberly-Justice W 427.0 PAROXYSMAL SUPRAVENTRICULAR TACHYCARDIA 08/05/2018 Champagne, Kymberly-Justice W 427.31 ATRIAL FIBRILLATION 08/05/2018 Champagne, Kymberly-Justice W I10 ESSENTIAL (PRIMARY) HYPERTENSION 08/05/2018 Champagne, Kymberly-Justice W I47.1 SUPRAVENTRICULAR TACHYCARDIA 08/05/2018 Champagne, Kymberly-Justice W I48.0 PAROXYSMAL ATRIAL FIBRILLATION 08/05/2018 Champagne, Kymberly-Justice W 401.9 UNSPECIFIED ESSENTIAL HYPERTENSION 08/05/2018, [place]ym[place]-Justice W 427.0 PAROXYSMAL SUPRAVENTRICULAR TACHYCARDIA 08/05/2018 Champagne, Kymberly-Justice W 427.31 ATRIAL FIBRILLATION 08/05/2018 Champagne, Kymberly-Justice W I10 ESSENTIAL (PRIMARY) HYPERTENSION 08/05/2018 Champagne, Kymberly-Justice W I47.1 SUPRAVENTRICULAR TACHYCARDIA 08/05/2018 Champagne, Kymberly-Justice W I48.0 PAROXYSMAL ATRIAL FIBRILLATION 08/05/2018 Champagne, Kymberly-Jusitce W 401.9 UNSPECIFIED ESSENTIAL HYPERTENSION 08/05/2018 Champagne, Kymberly-Justice W 427.0 PAROXYSMAL SUPRAVENTRICULAR TACHYCARDIA 08/05/2018 Champagne, Kmyberly-Justice W 427.31 ATRIAL FIBRILLATION 08/05/2018 Champagne, Kymberly-Justice W I10 ESSENTIAL (PRIMARY) HYPERTENSION 08/05/2018 Champagne, Kymberly-Justice W I47.1 SUPRAVENTRICULAR TACHYCARDIA 08/05/2018 Champagne, Kymberly-Justice W I48.0 PAROXYSMAL ATRIAL FIBRILLATION 08/06/2018 Champagne, Kymberly-Justice W 240.9 GOITER, UNSPECIFIED 08/06/2018, Kymberly-Justice W 272.4 08/06/2018 Champagne, Kymberly-Justice W 274.9 GOUT, UNSPECIFIED 08/06/2018 Champagne, Kymberly-Justice W 401.0 08/06/2018, Kymberly-Justice W 401.9 UNSPECIFIED ESSENTIAL HYPERTENSION 08/06/2018, [place]-Justice W 427.0 PAROXYSMAL SUPRAVENTRICULAR TACHYCARDIA 08/06/2018, K[place]-Justice A 427.31 ATRIAL FIBRILLATION 08/06/2018 Champagne, Kymberly-Justice W E04.9 NONTOXIC GOITER, UNSPECIFIED 08/06/2018 Champagne, Kymberly-Justice W E78.5 HYPERLIPIDEMIA, UNSPECIFIED 08/06/2018, Kymberly-Justice [...] Z29.8 ENCOUNTER FOR OTHER SPECIFIED PROPHYLACT 09/05/2018 MAKENZIE, EMILIE M VISUAL MERCHANDISING ASSISTANT Ot R94.6 ABNORMAL RESULTS OF THYROID FUNCTION MIKE 09/05/2018 TANISHACARRINGTON CORE DRILLING SUPERVISOR Ot Z29.8 ENCOUNTER FOR OTHER SPECIFIED [...] EPIDIDYMIS 10/04/2018 JEOVANNY JAMES MD P Ot B18. 2 CHRONIC VIRAL HEPATITIS C 10/04/2018 EMILIE BNAEGAS APRN Ot R94.6 ABNORMAL RESULTS OF THYROID [...] Ot I21.A1 MYOCARDIAL INFARCTION TYPE 2 10/13/2018 NCI LÓPEZ MD Ot I25.10 ATHSCL HEART DISEASE OF [place] CORONARY 10/13/2018 NIC LÓPEZ MD Ot I48.0 [...] BANEGAS APRN Ot I86.1 SCROTAL VARICES 11/24/2018 EMILIE BANEGAS APRN Ot K46.9 UNSPECIFIED ABDOMINAL HERNIA WITHOUT OBS 11/24/2018 EMILIE BANEGAS APRN Ot N43.3 HYDROCELE, UNSPECIFIED 11/24/2018 EMILIE BANEGAS APRN Ot N50.3 CYST OF EPIDIDYMIS 11/24/2018 JEOVANNY JAMES MD P Ot B18. 2 CHRONIC VIRAL HEPATITIS C 11/24/2018 EMILIE BANEGAS APRN Ot R94.6 ABNORMAL RESULTS OF THYROID FUNCTION MIKE 11/24/2018 JEOVANNY JAMES MD P Ot B18. 2 [...] OF PULMONARY EMBOLISM 11/25/2018 JEOVANNY JAMES MD P Ot B18. 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 2 CHRONIC VIRAL HEPATITIS C 11/25/2018 EMILIE BANEGAS APRN Ot R94.6 ABNORMAL RESULTS OF THYROID FUNCTION MIKE 11/25/2018 ERIKA DRAPER, JEOVANNY Mayo Ot B18. 2 CHRONIC VIRAL HEPATITIS C 11/25/2018 EMILIE BANEGAS VISUAL MERCHANDISING ASSISTANT Ot E03.8 OTHER SPECIFIED HYPOTHYROIDISM 11/25/2018 EMILIE BANEGAS VISUAL MERCHANDISING ASSISTANT Ot I1 0 ESSENTIAL (PRIMARY) HYPERTENSION 11/25/2018 EMILIE BANEGAS VISUAL MERCHANDISING ASSISTANT Ot I48.0 PAROXYSMAL ATRIAL FIBRILLATION 01/06/2019 POST DO, NELLY Ot R53.1 WEAKNESS 01/06/2019 POST DO, NELLY Ot Z95.5 PRESENCE OF CORONARY ANGIOPLASTY IMPLANT 01/10/2019 POST DO, NELLY Ot R53.1 WEAKNESS 01/10/2019 POST DO, NELLY Ot Z95.5 PRESENCE OF CORONARY ANGIOPLASTY IMPLANT 02/03/2019 Rick Doyle 386.11 BENIGN PAROXYSMAL POSITIONAL VERTIGO 02/03/2019 Rick [...] Ot I25. 10 ATHSCL HEART DISEASE OF [place] CORONARY 03/01/2019 TERESA MENESES MD Ot I48. [...] OTHER DISEASES OF UR 03/01/2019 TERESA MENESES MD, Ot Z87.891 PERSONAL HISTORY OF NICOTINE DEPENDENCE 03/01/2019 TERESA MENESES MD Ot Z90. 49 ACQUIRED ABSENCE OF OTHER SPECIFIED PART 03/01/2019 TERESA MENESES MD, Ot Z90. 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 10 ATHSCL HEART DISEASE OF [place] CORONARY 03/03/2019 TERESA MENESES MD Ot I48. [...] Ot I25. 10 ATHSCL HEART DISEASE OF [place] CORONARY 03/03/2019 TERESA MENESES MD Ot I48. [...] W/O MYELOPATHY OR RADICULOPA 03/09/2019 Ot M50.31 OTH ER CERVICAL DISC DEGENERATION, HIGH 03/09/2019 Ot Z98.1 ARTH RODESIS STATUS 03/09/2019 EMILIE BANEGAS APRN Ot I86.1 SCROTAL VARICES 03/09/2019 EMILIE BANEGAS VISUAL MERCHANDISING ASSISTANT Ot K46.9 UNSPECIFIED ABDOMINAL HERNIA WITHOUT OBS 03/09/2019 EMILIE BANEGAS VISUAL MERCHANDISING ASSISTANT Ot N43.3 HYDROCELE, UNSPECIFIED 03/09/2019 EMILIE BANEGAS VISUAL MERCHANDISING ASSISTANT Ot N50.3 CYST OF EPIDIDYMIS 03/09/2019 ERIKA DRAPER, JEOVANNY P Ot B18. 2 CHRONIC VIRAL HEPATITIS C 03/09/2019 EMILIE BANEGAS VISUAL MERCHANDISING ASSISTANT Ot R94.6 ABNORMAL RESULTS OF THYROID FUNCTION MIKE 03/09/2019 ERIKA DRAPER, JEOVANNY P Ot B18. 2 CHRONIC VIRAL HEPATITIS C 03/09/2019 EMILIE BANEGAS VISUAL MERCHANDISING ASSISTANT Ot E03.8 OTHER SPECIFIED HYPOTHYROIDISM 03/09/2019 EMILIE BANEGAS VISUAL MERCHANDISING ASSISTANT Ot I1 0 ESSENTIAL (PRIMARY) HYPERTENSION 03/09/2019 EMILIE BANEGAS VISUAL MERCHANDISING ASSISTANT Ot I48.0 PAROXYSMAL ATRIAL FIBRILLATION 03/09/2019 NELLY [...] DO Ot I25.10 ATHSCL HEART DISEASE OF [place] CORONARY 03/09/2019 NELLY POST DO Ot I48.91 UNSPECIFIED ATRIAL FIBRILLATION 03/09/2019 NELLY POST DO Ot I48.92 UNSPECIFIED ATRIAL FLUTTER 03/09/2019 NELLY POST DO Ot R00.0 TACHYCARDIA, UNSPECIFIED 03/09/2019 NELLY POST DO Ot Z79.01 HEAVY LIFT RIGGER (CURRENT) USE OF ANTICOAGULANT 03/09/2019 [place] DO, NELLY Ot Z82.49 FAMILY HX OF ISCHEM HEART DIS AND OTH DI 03/09/2019 [place] DO, NELLY Ot Z85.00 PERSONAL HISTORY OF MALIGNANT NEOPLASM O 03/09/2019 [place] DO, NELLY Ot Z86.010 PERSONAL HISTORY OF COLONIC POLYPS 03/09/2019 [place] DO, NELLY Ot Z86.711 PERSONAL HISTORY OF PULMONARY EMBOLISM 03/09/2019 [place] DO, NELLY Ot Z86.718 PERSONAL HISTORY OF OTHER VENOUS THROMBO 03/09/2019 [place] DO, NELLY Ot Z87.19 PERSONAL HISTORY OF OTHER DISEASES OF TH 03/09/2019 [place] DO, NELLY Ot Z87.891 PERSONAL HISTORY OF NICOTINE DEPENDENCE 03/09/2019 [place] DO, NELLY Ot Z90.49 ACQUIRED ABSENCE OF OTHER SPECIFIED PART 03/10/2019 [place] DO, NELLY Ot E03.9 HYPOTHYROIDISM, UNSPECIFIED 03/10/2019 [place] DO, NELLY Ot F32.9 MAJOR DEPRESSIVE DISORDER, SINGLE EPISOD 03/10/2019 [place] DO, NELLY Ot F41.9 ANXIETY DISORDER, UNSPECIFIED 03/10/2019 [place] DO, NELLY Ot G43.909 MIGRAINE, UNSP, NOT INTRACTABLE, WITHOUT 03/10/2019 [place] DO, NELLY Ot I25.10 ATHSCL HEART DISEASE OF [place] CORONARY 03/10/2019 [place] DO, NELLY Ot I48.91 UNSPECIFIED ATRIAL FIBRILLATION 03/10/2019 [place] DO, NELLY Ot I48.92 UNSPECIFIED ATRIAL FLUTTER 03/10/2019 [place] DO, NELLY Ot R00.0 TACHYCARDIA, UNSPECIFIED 03/10/2019 [place] DO, NELLY Ot Z79.01 HEAVY LIFT RIGGER (CURRENT) USE OF ANTICOAGULANT 03/10/2019 POST DO, NELLY Ot Z82.49 FAMILY HX OF ISCHEM HEART DIS AND OTH DI 03/10/2019 [place] DO, NELLY Ot Z85.00 PERSONAL HISTORY OF MALIGNANT NEOPLASM O 03/10/2019 [place] DO, NELLY Ot Z86.010 PERSONAL HISTORY OF COLONIC POLYPS 03/10/2019 [place] DO, NELLY Ot Z86.711 PERSONAL HISTORY OF PULMONARY EMBOLISM 03/10/2019 POST DO, NELLY Ot Z86.718 PERSONAL HISTORY OF OTHER VENOUS THROMBO 03/10/2019 [place] DO, NELLY Ot Z87.19 PERSONAL HISTORY OF OTHER DISEASES OF TH 03/10/2019 POST DO, NELLY Ot Z87.891 PERSONAL HISTORY OF NICOTINE DEPENDENCE 03/10/2019 [place] DO, NELLY Ot Z90.49 ACQUIRED ABSENCE OF OTHER SPECIFIED PART 03/10/2019 POST DO, NELLY Ot E03.9 HYPOTHYROIDISM, UNSPECIFIED 03/10/2019 POST DO, NELLY Ot F32.9 MAJOR DEPRESSIVE DISORDER, SINGLE EPISOD 03/10/2019 [place] DO, NELLY Ot F41.9 ANXIETY DISORDER, UNSPECIFIED 03/10/2019 [place] DO, NELLY Ot G43.909 MIGRAINE, UNSP, NOT INTRACTABLE, WITHOUT 03/10/2019 POST DO, NELLY Ot I25.10 ATHSCL HEART DISEASE OF [place] CORONARY 03/10/2019 POST DO, NELLY Ot I48.91 UNSPECIFIED ATRIAL FIBRILLATION 03/10/2019 [place] DO, NELLY Ot I48.92 UNSPECIFIED ATRIAL FLUTTER 03/10/2019 [place] DO, NELLY Ot R00.0 TACHYCARDIA, UNSPECIFIED 03/10/2019 [place] DO, NELLY Ot Z79.01 HEAVY LIFT RIGGER (CURRENT) USE OF ANTICOAGULANT 03/10/2019 [place] DO, NELLY Ot Z82.49 FAMILY HX OF ISCHEM HEART DIS AND OTH DI 03/10/2019 POST DO, NELLY Ot Z85.00 PERSONAL HISTORY OF MALIGNANT NEOPLASM O 03/10/2019 [place] DO, NELLY Ot Z86.010 PERSONAL HISTORY OF COLONIC POLYPS 03/10/2019 [place] DO, NELLY Ot Z86.711 PERSONAL HISTORY OF PULMONARY EMBOLISM 03/10/2019 [place] DO, NELLY Ot Z86.718 PERSONAL HISTORY OF OTHER VENOUS THROMBO 03/10/2019 [place] DO, NELLY Ot Z87.19 PERSONAL HISTORY OF OTHER DISEASES OF TH 03/10/2019 [place] DO, NELLY Ot Z87.891 PERSONAL HISTORY OF NICOTINE DEPENDENCE 03/10/2019 [place] DO, NELLY Ot Z90.49 ACQUIRED ABSENCE OF OTHER SPECIFIED PART 03/13/2019 POST DO, NELLY Ot B19.20 UNSPECIFIED VIRAL HEPATITIS C WITHOUT HE 03/13/2019 POST DO, NELLY Ot E03.9 HYPOTHYROIDISM, UNSPECIFIED 03/13/2019 POST DO, NELLY Ot F32.9 MAJOR DEPRESSIVE DISORDER, SINGLE EPISOD 03/13/2019 POST DO, NELLY Ot F41.9 ANXIETY DISORDER, UNSPECIFIED 03/13/2019 [place] DO, NELLY Ot G43.909 MIGRAINE, UNSP, NOT INTRACTABLE, WITHOUT 03/13/2019 POST DO, NELLY Ot I25.10 ATHSCL HEART DISEASE OF [place] CORONARY 03/13/2019 POST DO, NELLY Ot I48.91 UNSPECIFIED ATRIAL FIBRILLATION 03/13/2019 [place] DO, NELLY Ot I48.92 UNSPECIFIED ATRIAL FLUTTER 03/13/2019 [place] DO, NELLY Ot R00.0 TACHYCARDIA, UNSPECIFIED 03/13/2019 [place] DO, NELLY Ot Z79.01 HALFWAY (CURRENT) USE OF ANTICOAGULANT 03/13/2019 [place] DO, NELLY Ot Z82.49 FAMILY HX OF ISCHEM HEART DIS AND OTH DI 03/13/2019 [place] DO, NELLY Ot Z85.00 PERSONAL HISTORY OF MALIGNANT NEOPLASM O 03/13/2019 [place] DO, NELLY Ot Z86.010 PERSONAL HISTORY OF COLONIC POLYPS 03/13/2019 [place] DO, NELLY Ot Z86.711 PERSONAL HISTORY OF PULMONARY EMBOLISM 03/13/2019 [place] DO, NELLY Ot Z86.718 PERSONAL HISTORY OF OTHER VENOUS THROMBO 03/13/2019 [place] DO, NELLY Ot Z87.19 PERSONAL HISTORY OF OTHER DISEASES OF TH 03/13/2019 [place] DO, NELLY Ot Z87.891 PERSONAL HISTORY OF NICOTINE DEPENDENCE 03/13/2019 [place] DO, NELLY Ot Z90.49 ACQUIRED ABSENCE OF OTHER SPECIFIED PART 03/15/2019 [place] DO, NELLY Ot B19.20 UNSPECIFIED VIRAL HEPATITIS C WITHOUT HE 03/15/2019 [place] DO, NELLY Ot E03.9 HYPOTHYROIDISM, UNSPECIFIED 03/15/2019 [place] DO, NELLY Ot F32.9 MAJOR DEPRESSIVE DISORDER, SINGLE EPISOD 03/15/2019 [place] DO, NELLY Ot F41.9 ANXIETY DISORDER, UNSPECIFIED 03/15/2019 [place] DO, NELLY Ot G43.909 MIGRAINE, UNSP, NOT INTRACTABLE, WITHOUT 03/15/2019 [place] DO, NELLY Ot I25.10 ATHSCL HEART DISEASE OF [place] CORONARY 03/15/2019 [place] DO, NELLY Ot I48.91 UNSPECIFIED ATRIAL FIBRILLATION 03/15/2019 [place] DO, NELLY Ot I48.92 UNSPECIFIED ATRIAL FLUTTER 03/15/2019 [place] DO, NELLY Ot R00.0 TACHYCARDIA, UNSPECIFIED 03/15/2019 [place] DO, NELLY Ot Z79.01 HALFWAY (CURRENT) USE OF ANTICOAGULANT 03/15/2019 [place] DO, NELLY Ot Z82.49 FAMILY HX OF ISCHEM HEART DIS AND OTH DI 03/15/2019 [place] DO, NELLY Ot Z85.00 PERSONAL HISTORY OF MALIGNANT NEOPLASM O 03/15/2019 [place] DO, NELLY Ot Z86.010 PERSONAL HISTORY OF COLONIC POLYPS 03/15/2019 [place] DO, Ot Z86.711 PERSONAL HISTORY OF PULMONARY EMBOLISM 03/15/2019 NELLY [place] DO, Ot Z86.718 PERSONAL HISTORY OF OTHER VENOUS THROMBO 03/15/2019 NELLY [place] DO, Ot Z87.19 PERSONAL HISTORY OF OTHER DISEASES OF 03/15/2019 NELLY POST DO, Ot Z87.891 PERSONAL HISTORY OF NICOTINE DEPENDENCE 03/15/2019 NELLY POST DO, Ot Z90.49 ACQUIRED ABSENCE OF OTHER SPECIFIED PART 03/20/2019 Rick Doyle W 785.0 TACHYCARDIA, UNSPECIFIED 03/20/2019 Rick Doyle R00.0 TACHYCARDIA, UNSPECIFIED 04/10/2019 JOSE TAVERAS DO, [...] DO, Ot I25.10 ATHSCL HEART DISEASE OF [place] CORONARY 04/10/2019 JOSE TAVERAS DO, Ot I25.2 [...] OF OTHER DISEASES OF 04/10/2019 JOSE TAVERAS DO Ot Z90.49 ACQUIRED ABSENCE OF OTHER [...] Ot I25. 10 ATHSCL HEART DISEASE OF [place] CORONARY 04/14/2019 TREESA MENESES MD Ot I48. 91 UNSPECIFIED ATRIAL [...] Ot E03.9 HYPOTHYROIDISM, UNSPECIFIED 04/17/2019 JOSE TAVERAS DO, Ot F32.9 MAJOR DEPRESSIVE DISORDER, SINGLE EPISOD 04/17/2019 JOSE TAVERAS DO, Ot F41.9 ANXIETY DISORDER, UNSPECIFIED 04/17/2019 JOSE TAVERAS DO, Ot G43.909 MIGRAINE, UNSP, NOT INTRACTABLE, WITHOUT 04/17/2019 JOSE TAVERAS DO, Ot I25.10 ATHSCL HEART DISEASE OF [place] CORONARY 04/17/2019 JOSE TAVERAS DO, Ot I25.2 [...] Ot I25. 10 ATHSCL HEART DISEASE OF [place] CORONARY 04/20/2019 TERESA MENESES MD Ot I48. [...] OTHER DISEASES OF UR 04/20/2019 TERESA MENESES MD, Ot Z87.891 PERSONAL HISTORY OF NICOTINE DEPENDENCE 04/20/2019 TERESA MENESES MD Ot Z90. 49 ACQUIRED ABSENCE OF OTHER SPECIFIED PART 04/20/2019 TERESA MENESES MD Ot Z90. 81 ACQUIRED ABSENCE OF SPLEEN 05/19/2019 LEISURE, RIVAS W 780.4 DIZZINESS AND GIDDINESS 05/19/2019 LEISURE, RIVAS W R42 DIZZINESS AND GIDDINESS 05/27/2019 Rick Doyle W 466.0 ACUTE BRONCHITIS 05/27/2019 Rick Doyle 788.1 DYSURIA 05/27/2019 Rick Doyle J20.9 ACUTE BRONCHITIS, UNSPECIFIED 05/27/2019 Rick Doyle R30.0 DYSURIA 05/30/2019 [place] DO, Ot B19.20 UNSPECIFIED VIRAL HEPATITIS C WITHOUT HE 05/30/2019 NELLY POST DO, Ot E03.9 HYPOTHYROIDISM, UNSPECIFIED 05/30/2019 NELLY POST DO, Ot F32.9 MAJOR DEPRESSIVE DISORDER, SINGLE EPISOD 05/30/2019 NELLY POST DO, Ot F41.9 ANXIETY DISORDER, UNSPECIFIED 05/30/2019 NELLY POST DO, Ot G43.909 MIGRAINE, UNSP, NOT INTRACTABLE, WITHOUT 05/30/2019 NELLY POST DO, Ot I25.10 ATHSCL HEART DISEASE OF [place] CORONARY 05/30/2019 [facility] DO, NELLY Ot I48.91 UNSPECIFIED ATRIAL FIBRILLATION 05/30/2019 [place] DO, NELLY Ot I48.92 UNSPECIFIED ATRIAL FLUTTER 05/30/2019 [facility] DO, NELLY Ot I50.9 HEART FAILURE, UNSPECIFIED 05/30/2019 [place] DO, NELLY Ot R07.9 CHEST PAIN, UNSPECIFIED 05/30/2019 [place] DO, NELLY Ot R79.89 OTHER SPECIFIED ABNORMAL FINDINGS OF BLO 05/30/2019 [place] DO, NELLY Ot Z82.49 FAMILY HX OF ISCHEM HEART DIS AND OTH DI 05/30/2019 [place] DO, NELLY Ot Z86.010 PERSONAL HISTORY OF COLONIC POLYPS 05/30/2019 [place] DO, NELLY Ot Z86.711 PERSONAL HISTORY OF PULMONARY EMBOLISM 05/30/2019 [place] DO, NELLY Ot Z86.718 PERSONAL HISTORY OF OTHER VENOUS THROMBO 05/30/2019 [place] DO, NELLY Ot Z87.891 PERSONAL HISTORY OF NICOTINE DEPENDENCE 05/30/2019 [place] DO, NELLY Ot Z90.49 ACQUIRED ABSENCE OF OTHER SPECIFIED PART 06/02/2019 [place] DO, NELLY Ot B19.20 UNSPECIFIED VIRAL HEPATITIS C WITHOUT HE 06/02/2019 [place] DO, NELLY Ot E03.9 HYPOTHYROIDISM, UNSPECIFIED 06/02/2019 [place] DO, NELLY Ot F32.9 MAJOR DEPRESSIVE DISORDER, SINGLE EPISOD 06/02/2019 [place] DO, NELLY Ot F41.9 ANXIETY DISORDER, UNSPECIFIED 06/02/2019 [place] DO, NELLY Ot G43.909 MIGRAINE, UNSP, NOT INTRACTABLE, WITHOUT 06/02/2019 [place] DO, NELLY Ot I25.10 ATHSCL HEART DISEASE OF [place] CORONARY 06/02/2019 [place] DO, NELLY Ot I48.91 UNSPECIFIED ATRIAL FIBRILLATION 06/02/2019 [place] DO, NELLY Ot I48.92 UNSPECIFIED ATRIAL FLUTTER 06/02/2019 [place] DO, NELLY Ot I50.9 HEART FAILURE, UNSPECIFIED 06/02/2019 [place] DO, NELLY Ot R07.9 CHEST PAIN, UNSPECIFIED 06/02/2019 [place] DO, NELLY Ot R79.89 OTHER SPECIFIED ABNORMAL FINDINGS OF BLO 06/02/2019 [place] DO, NELLY Ot Z82.49 FAMILY HX OF ISCHEM HEART DIS AND OTH DI 06/02/2019 [place] DO, NELLY Ot Z86.010 PERSONAL HISTORY OF COLONIC POLYPS 06/02/2019 [place] DO, NELLY Ot Z86.711 PERSONAL HISTORY OF PULMONARY EMBOLISM 06/02/2019 SEJAL MELCHORNELLY Ot Z86.718 PERSONAL HISTORY OF OTHER VENOUS THROMBO 06/02/2019 SEJAL MELCHORNELLY Ot Z87.891 PERSONAL HISTORY OF NICOTINE DEPENDENCE 06/02/2019 POST NELLY Ot Z90.49 ACQUIRED ABSENCE OF OTHER [...] Ot I25. 10 ATHSCL HEART DISEASE OF [place] CORONARY 10/21/2019 TERESA MENESES MD Ot I48. [...] Z90. 81 ACQUIRED ABSENCE OF SPLEEN 11/09/2019 FLCAO DURÁN MD Ot E03. 9 HYPOTHYROIDISM, UNSPECIFIED 11/09/2019 FLACO DURÁN MD Ot F32. 9 MAJOR DEPRESSIVE DISORDER, SINGLE EPISOD 11/09/2019 FLACO DURÁN MD Ot F41. 9 ANXIETY DISORDER, UNSPECIFIED 11/09/2019 FLACO DURÁN MD Ot I25. 10 ATHSCL HEART DISEASE OF [place] CORONARY 11/09/2019 FLACO DURÁN MD Ot I48. 91 UNSPECIFIED ATRIAL FIBRILLATION 11/09/2019 FLACO DURÁN MD Ot R07. 0 PAIN IN THROAT 11/09/2019 FLACO DURÁN MD, Ot R07. 9 CHEST PAIN, UNSPECIFIED 11/09/2019 FLACO DURÁN MD Ot R22. 0 LOCALIZED SWELLING, MASS AND LUMP, HEAD 11/09/2019 LEEANNA MD, FLACO W Ot Z79. 01 HALFWAY (CURRENT) USE OF ANTICOAGULANT 11/09/2019 FLACO DURÁN [...] Ot I25. 10 ATHSCL HEART DISEASE OF [place] CORONARY 11/14/2019 FLACO DURÁN MD, Ot I48. 91 UNSPECIFIED ATRIAL FIBRILLATION 11/14/2019 FLACO DURÁN MD Ot R07. 0 PAIN IN THROAT 11/14/2019 FLACO DURÁN MD, Ot R07. 9 CHEST PAIN, UNSPECIFIED 11/14/2019 FLACO DURÁN MD, Ot R22. 0 LOCALIZED SWELLING, MASS AND LUMP, HEAD 11/14/2019 FLACO DURÁN MD, Ot Z79. 01 HALFWAY (CURRENT) USE OF ANTICOAGULANT 11/14/2019 FLACO DURÁN [...] Ot I25. 10 ATHSCL HEART DISEASE OF [place] CORONARY 11/22/2019 FLACO DURÁN MD, Ot I48. 91 UNSPECIFIED ATRIAL FIBRILLATION 11/22/2019 FLACO DURÁN MD, Ot R07. 0 PAIN IN THROAT 11/22/2019 FLACO DURÁN MD, Ot R07. 9 CHEST PAIN, UNSPECIFIED 11/22/2019 FLACO DURÁN MD, Ot R22. 0 LOCALIZED SWELLING, MASS AND LUMP, HEAD 11/22/2019 FLACO DURÁN MD, Ot Z79. 01 HEAVY LIFT RIGGER (CURRENT) USE OF ANTICOAGULANT 11/22/2019 FLACO DURÁN [...] Ot I25. 10 ATHSCL HEART DISEASE OF [place] CORONARY 12/20/2019 TERESA MENESES MD Ot I48. [...] Ot I25.1 0 ATHSCL HEART DISEASE OF [place] CORONARY 01/19/2020 KACY MARC MD Ot I48.9 [...] HALFWAY (CURRENT) DRUG THERAPY 01/19/2020 KACY MARC MD Ot Z85.0 38 PERSONAL HISTORY OF MALIGNANT NEOPLASM O 01/19/2020 KACY MARC MD Ot Z86.7 11 PERSONAL HISTORY OF PULMONARY EMBOLISM 01/19/2020 KACY MARC MD Ot Z87.1 9 PERSONAL HISTORY OF OTHER DISEASES OF TH 01/19/2020 KACY MARC MD Ot Z87.8 91 PERSONAL HISTORY OF NICOTINE [...] UNSP, NOT INTRACTABLE, WITHOUT 01/19/2020 TERESA MENESES MD Ot I25. 10 ATHSCL HEART DISEASE OF [place] CORONARY 01/19/2020 TERESA MENESES MD Ot I48. [...] OF OTHER VENOUS THROMBO 01/19/2020 TERESA MENESES MD Ot Z87.448 PERSONAL HISTORY OF OTHER DISEASES OF UR 01/19/2020 TERESA MENESES MD, Ot Z87.891 PERSONAL HISTORY OF NICOTINE DEPENDENCE 01/19/2020 TERESA MENESES MD, Ot Z90. 49 ACQUIRED ABSENCE OF OTHER SPECIFIED PART 01/19/2020 TERESA MENESES MD Ot Z90. 81 ACQUIRED ABSENCE OF SPLEEN 01/25/2020 FLACO DURÁN MD Ot E03. 9 HYPOTHYROIDISM, UNSPECIFIED 01/25/2020 FLACO DURÁN MD Ot F32. 9 MAJOR DEPRESSIVE DISORDER, SINGLE EPISOD 01/25/2020 FLACO DURÁN MD, Ot F41. 9 ANXIETY DISORDER, UNSPECIFIED 01/25/2020 FLACO DURÁN MD, Ot I25. 10 ATHSCL HEART DISEASE OF [place] CORONARY 01/25/2020 FLACO DURÁN MD Ot I48. 91 UNSPECIFIED ATRIAL FIBRILLATION 01/25/2020 FLACO DURÁN MD Ot R07. 0 PAIN IN THROAT 01/25/2020 FLACO DURÁN MD, Ot R07. 9 CHEST PAIN, UNSPECIFIED 01/25/2020 FLACO DURÁN MD, Ot R22. 0 LOCALIZED SWELLING, MASS AND LUMP, HEAD 01/25/2020 FLACO DURÁN MD, Ot Z79. 01 HALFWAY (CURRENT) USE OF ANTICOAGULANT 01/25/2020 FLACO DURÁN MD, Ot Z82. 49 FAMILY HX OF [place] HEART DIS AND OTH DI 01/25/2020 FLACO DURÁN MD Ot Z85.038 PERSONAL HISTORY OF MALIGNANT NEOPLASM O 01/25/2020 FLACO DURÁN MD Ot Z86.711 PERSONAL HISTORY OF PULMONARY EMBOLISM 01/25/2020 FLACO DURÁN MD, Ot Z86.718 PERSONAL HISTORY OF OTHER VENOUS THROMBO 01/25/2020 FLACO DURÁN MD, Ot Z87.891 PERSONAL HISTORY [...] W R51 HEADACHE 02/22/2020 ZAIRA DRAPER, TERESA Caal Ot E03. 9 HYPOTHYROIDISM, UNSPECIFIED 02/22/2020 ZAIRA DRAPER, TERESA Caal Ot F32. 9 MAJOR DEPRESSIVE DISORDER, SINGLE EPISOD 02/22/2020 ZAIRA DRAPER, TERESA Caal Ot F41. 9 ANXIETY DISORDER, UNSPECIFIED 02/22/2020 ZAIRA DRAPER, TERESA Caal Ot I10 ESSENTIAL (PRIMARY) HYPERTENSION 02/22/2020 TERESA MENESES MD Ot I20. 0 UNSTABLE ANGINA 02/22/2020 TERESA MENESES MD Ot I25. 2 OLD MYOCARDIAL INFARCTION 02/22/2020 TERESA MENESES MD J Ot I48. 91 UNSPECIFIED ATRIAL FIBRILLATION 02/22/2020 TERESA MENESES MD J Ot I48. 92 UNSPECIFIED ATRIAL FLUTTER 02/22/2020 [...] UNSPECIFIED ATRIAL FIBRILLATION 02/29/2020 TERESA MENESES MD J Ot I48. 92 UNSPECIFIED ATRIAL FLUTTER 02/29/2020 TERESA MENESES MD Ot R07. 9 CHEST PAIN, UNSPECIFIED 02/29/2020 TERESA MENESES MD Ot Z79. 01 HEAVY LIFT RIGGER (CURRENT) USE OF ANTICOAGULANT 02/29/2020 TERESA MENESES MD J Ot Z82. 49 FAMILY HX OF [place] HEART DIS AND OTH DI 02/29/2020 TERESA MENESES MD Ot Z85.038 PERSONAL HISTORY OF MALIGNANT NEOPLASM O 02/29/2020 TERESA MENESES MD Ot Z86.711 PERSONAL HISTORY OF PULMONARY EMBOLISM 02/29/2020 ZAIRA DRAPER, TERESA Caal Ot Z87.891 PERSONAL HISTORY OF NICOTINE DEPENDENCE 03/15/2020 SHAAN DRAPER, JUAN CARLOS Estevez Ot A41. 51 SEPSIS DUE TO ESCHERICHIA COLI [E. COLI] 03/15/2020 SHAAN DRAPER, JUAN CARLOS Estevez Ot D64. 9 ANEMIA, UNSPECIFIED 03/15/2020 SHAAN DRAPER, JUAN CARLOS Estevez Ot E03. 9 HYPOTHYROIDISM, UNSPECIFIED 03/15/2020 SHAAN DRAPER, JUAN CARLOS Estevez Ot E78. 00 PURE HYPERCHOLESTEROLEMIA, UNSPECIFIED 03/15/2020 SHAAN DRAPER, JUAN CARLOS Estevez Ot E87. 2 ACIDOSIS 03/15/2020 JUAN CARLOS GARDUNO MD Ot F32. 9 MAJOR DEPRESSIVE DISORDER, SINGLE EPISOD 03/15/2020 SHAAN DRAPER, JUAN CARLOS Estevez Ot F41. 9 ANXIETY DISORDER, UNSPECIFIED 03/15/2020 JUAN CARLOS GARDUNO MD Ot G43.909 MIGRAINE, UNSP, NOT INTRACTABLE, WITHOUT 03/15/2020 SHAAN DRAPER, JUAN CARLOS Estevez Ot I10 ESSENTIAL (PRIMARY) HYPERTENSION 03/15/2020 SHAAN DRAPER, JUAN CARLOS Estevez Ot I21. A1 MYOCARDIAL INFARCTION TYPE 2 03/15/2020 SHAAN DRAPER, JUAN CARLOS Estevez Ot I25. 10 ATHSCL HEART DISEASE OF [place] CORONARY 03/15/2020 SHAAN DRAPER, JUAN CARLOS Estevez Ot I48. 0 PAROXYSMAL ATRIAL FIBRILLATION 03/15/2020 SHAAN DRAPER, JUAN CARLOS Estevez Ot J18. 9 PNEUMONIA, UNSPECIFIED ORGANISM 03/15/2020 SHAAN DRAPER, JUAN CARLOS Estevez Ot J96. 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 9 UNSPECIFIED HEMORRHOIDS 03/15/2020 SHAAN DRAPER, JUAN CARLOS Estevez Ot M19. 91 PRIMARY OSTEOARTHRITIS, UNSPECIFIED SITE 03/15/2020 JUAN CARLOS GARDUNO MD Ot N17. 9 ACUTE KIDNEY FAILURE, UNSPECIFIED 03/15/2020 JUAN CARLOS GARDUNO MD Ot N39. 0 URINARY TRACT INFECTION, SITE NOT SPECIF 03/15/2020 JUAN CARLOS GARDUNO MD Ot N42. 9 DISORDER OF PROSTATE, UNSPECIFIED 03/15/2020 SHAAN DRAPER, JUAN CARLOS Estevez Ot R04. 2 HEMOPTYSIS 03/15/2020 JUAN CARLOS GARDUNO MD Ot R65. 21 SEVERE SEPSIS WITH SEPTIC SHOCK 03/15/2020 SHAAN DRAPER, JUAN CARLOS Estevez Ot Z20.828 CONTACT W AND EXPOSURE TO OTH VIRAL COMM 03/15/2020 JUAN CARLOS GARDUNO MD Ot Z79. 01 HEAVY LIFT RIGGER (CURRENT) USE OF ANTICOAGULANT 03/15/2020 JUAN CARLOS GARDUNO MD Ot Z85.038 PERSONAL HISTORY OF MALIGNANT NEOPLASM O 03/15/2020 JUAN CARLOS GARDUNO MD Ot Z86. 19 PERSONAL HISTORY OF OTHER INFECTIOUS AND 03/15/2020 JUAN CARLOS GARDUNO MD Ot Z86.711 PERSONAL HISTORY OF PULMONARY EMBOLISM 03/15/2020 JUAN CARLOS GARDUNO MD Ot Z87.891 PERSONAL HISTORY OF NICOTINE DEPENDENCE 03/15/2020 JUAN CARLOS GARDUNO MD Ot Z90. 81 ACQUIRED ABSENCE OF SPLEEN 03/16/2020 JUAN CARLOS GARDUNO MD Ot A41. 51 SEPSIS DUE TO ESCHERICHIA COLI [E. COLI] 03/16/2020 JUAN CARLOS GARDUNO MD Ot D64. 9 ANEMIA, UNSPECIFIED 03/16/2020 JUAN CARLOS GARDUNO MD Ot E03. 9 HYPOTHYROIDISM, UNSPECIFIED 03/16/2020 JUAN CARLOS GARDUNO MD Ot E78. 00 PURE HYPERCHOLESTEROLEMIA, UNSPECIFIED 03/16/2020 JUAN CARLOS GARDUNO MD Ot E87. 2 ACIDOSIS 03/16/2020 JUAN CARLOS GARDUNO MD Ot F32. 9 MAJOR DEPRESSIVE DISORDER, SINGLE EPISOD 03/16/2020 JUAN CARLOS GARDUNO MD Ot F41. 9 ANXIETY DISORDER, UNSPECIFIED 03/16/2020 JUAN CARLOS GARDUNO MD Ot G43.909 MIGRAINE, UNSP, NOT INTRACTABLE, WITHOUT 03/16/2020 JUAN CARLOS GARDUNO MD Ot I10 ESSENTIAL (PRIMARY) HYPERTENSION 03/16/2020 JUAN CARLOS GARDUNO MD Ot I21. A1 MYOCARDIAL INFARCTION TYPE 2 03/16/2020 JUAN CARLOS GARDUNO MD Ot I25. 10 ATHSCL HEART DISEASE OF [place] CORONARY 03/16/2020 JUAN CARLOS GARDUNO MD Ot I48. 0 PAROXYSMAL ATRIAL FIBRILLATION 03/16/2020 JUANC ARLOS GARDUNO MD Ot J18. 9 PNEUMONIA, UNSPECIFIED ORGANISM 03/16/2020 JUAN CARLOS GARDUNO MD Ot J96. 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 9 UNSPECIFIED HEMORRHOIDS 03/16/2020 JUAN CARLOS GARDUNO MD Ot M19. 91 PRIMARY OSTEOARTHRITIS, UNSPECIFIED SITE 03/16/2020 JUAN CARLOS GARDUNO MD Ot N17. 9 ACUTE KIDNEY FAILURE, UNSPECIFIED 03/16/2020 JUAN CARLOS GARDUNO MD Ot N39. 0 URINARY TRACT INFECTION, SITE NOT SPECIF 03/16/2020 JUAN CARLOS GARDUNO MD Ot N42. 9 DISORDER OF PROSTATE, UNSPECIFIED 03/16/2020 JUAN CARLOS GARDUNO MD Ot R04. 2 HEMOPTYSIS 03/16/2020 JUAN CARLOS GARDUNO MD Ot R65. 21 SEVERE SEPSIS WITH SEPTIC SHOCK 03/16/2020 JUAN CARLOS GARDUNO MD Ot Z20.828 CONTACT W AND EXPOSURE TO OTH VIRAL COMM 03/16/2020 JUAN CARLOS GARDUNO MD Ot Z79. 01 HALFWAY (CURRENT) USE OF ANTICOAGULANT 03/16/2020 JUAN CARLOS GARDUNO MD Ot Z85.038 PERSONAL HISTORY OF MALIGNANT NEOPLASM O 03/16/2020 JUAN CARLOS GARDUNO MD Ot Z86. 19 PERSONAL HISTORY OF OTHER INFECTIOUS AND 03/16/2020 JUAN CARLOS GARDUNO MD Ot Z86.711 PERSONAL HISTORY OF PULMONARY EMBOLISM 03/16/2020 JUAN CARLOS GARDUNO MD Ot Z87.891 PERSONAL HISTORY OF NICOTINE DEPENDENCE 03/16/2020 JUAN CARLOS GARDUNO MD Ot Z90. 81 ACQUIRED ABSENCE OF SPLEEN 03/16/2020 JUAN CARLOS GARDUNO MD Ot A41. 51 SEPSIS DUE TO ESCHERICHIA COLI [E. COLI] 03/16/2020 JUAN CARLOS GARDUNO MD Ot D64. 9 ANEMIA, UNSPECIFIED 03/16/2020 JUAN CARLOS GARDUNO MD Ot E03. 9 HYPOTHYROIDISM, UNSPECIFIED 03/16/2020 JUAN CARLOS GARDUNO MD Ot E78. 00 PURE HYPERCHOLESTEROLEMIA, UNSPECIFIED 03/16/2020 JUAN CARLOS GARDUNO MD Ot E87. 2 ACIDOSIS 03/16/2020 JUAN CARLOS GARDUNO MD Ot F32. 9 MAJOR DEPRESSIVE DISORDER, SINGLE EPISOD 03/16/2020 JUAN CARLOS GARDUNO MD Ot F41. 9 ANXIETY DISORDER, UNSPECIFIED 03/16/2020 JUAN CARLOS GARDUNO MD Ot G43.909 MIGRAINE, UNSP, NOT INTRACTABLE, WITHOUT 03/16/2020 JUAN CARLOS GARDUNO MD Ot I10 ESSENTIAL (PRIMARY) HYPERTENSION 03/16/2020 JUAN CARLOS GARDUNO MD Ot I21. A1 MYOCARDIAL INFARCTION TYPE 2 03/16/2020 JUAN CARLOS GARDUNO MD Ot I25. 10 ATHSCL HEART DISEASE OF [place] CORONARY 03/16/2020 JUAN CARLOS GARDUNO MD Ot I48. 0 PAROXYSMAL ATRIAL FIBRILLATION 03/16/2020 JUAN CARLOS GARDUNO MD Ot J18. 9 PNEUMONIA, UNSPECIFIED ORGANISM 03/16/2020 JUAN CARLOS GARDUNO MD Ot J96. 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 9 UNSPECIFIED HEMORRHOIDS 03/16/2020 JUAN CARLOS GARDUNO MD Ot M19. 91 PRIMARY OSTEOARTHRITIS, UNSPECIFIED SITE 03/16/2020 JUAN CARLOS GARDUNO MD Ot N17. 9 ACUTE KIDNEY FAILURE, UNSPECIFIED 03/16/2020 JUAN CARLOS GARDUNO MD Ot N39. 0 URINARY TRACT INFECTION, SITE NOT SPECIF 03/16/2020 JUAN CARLOS GARDUNO MD, Ot N42. 9 DISORDER OF PROSTATE, UNSPECIFIED 03/16/2020 JUAN CARLOS GARDUNO MD Ot R04. 2 HEMOPTYSIS 03/16/2020 JUAN CARLOS GARDUNO MD Ot R65. 21 SEVERE SEPSIS WITH SEPTIC SHOCK 03/16/2020 JUAN CARLOS GARDUNO MD Ot Z20.828 CONTACT W AND EXPOSURE TO OTH VIRAL COMM 03/16/2020 JUAN CARLOS GARDUNO MD Ot Z79. 01 HEAVY LIFT RIGGER (CURRENT) USE OF ANTICOAGULANT 03/16/2020 JUAN CARLOS GARDUNO MD Ot Z85.038 PERSONAL HISTORY OF MALIGNANT NEOPLASM O 03/16/2020 JUAN CARLOS GARDUNO MD Ot Z86. 19 PERSONAL HISTORY OF OTHER INFECTIOUS AND 03/16/2020 JUAN CARLOS GARDUNO MD Ot Z86.711 PERSONAL HISTORY OF PULMONARY EMBOLISM 03/16/2020 JUAN CARLOS GARDUNO MD Ot Z87.891 PERSONAL HISTORY OF NICOTINE DEPENDENCE 03/16/2020 JUAN CARLOS GARDUNO MD Ot Z90. 81 ACQUIRED ABSENCE OF SPLEEN Procedures Code Description Performed By Per formed On 45.23 COLO NOSCOPY 02/16/2011 86.22 EXCI S DEBRIDE OF WOUND, INFECT, OR BURN 02/18/2011 86.04 OTHE R SKIN SUBQ I D 03/23/2011 86719 PSYC H IND W/MED CK 20 09/06/2012 06184 ROUT INE VENIPUNCTURE 02/13/2014 17514 INR (IN HOUSE) 02/13/2014 05451 CBC 02/13/2014 95430 CMP 02/13/2014 4923211 GF R CALC (RESULT ONLY) 02/13/2014 56279 SONDRA MIN D 25-HYDROXY (D2,D3, TOTAL) 02/13/2014 77688 VIT B 12 02/13/2014 52751 TSH 02/13/2014 TESTFRTOT TESTOSTERONE FREE AND TOTAL MALE 02/13/2014 84352 ROUT INE VENIPUNCTURE 02/19/2014 10758 LIPI D PANEL 02/19/2014 J1080 Depo -Testosterone 200 mg/mL oil 03/12/2014 36914 THER APUTIC INJ SQ/IM 04/11/2014 44173 THER APUTIC INJ SQ/IM 05/08/2014 09265 THER APUTIC INJ SQ/IM 06/20/2014 37676 THER APUTIC INJ SQ/IM 06/20/2014 18832 ROUT INE VENIPUNCTURE 06/21/2014 79983 UA L PRABHAKAR DIP 06/21/2014 TESTFRTOT TESTOSTERONE FREE AND TOTAL MALE 06/22/2014 45102 TEST OSTERONE TOTAL MALES 07/23/2014 84438 THER APUTIC INJ SQ/IM 07/23/2014 J1080 Depo -Testosterone 200 mg/mL oil 07/23/2014 29998 THER APUTIC INJ SQ/IM 08/20/2014 51939 THER APUTIC INJ SQ/IM 09/27/2014 11421 AMERITOX 11/05/2014 69867 THER APUTIC INJ SQ/IM 12/21/2014 99.61 ATRI AL CARDIOVERSION 02/17/2015 37.22 LEFT HEART CARDIAC CATH 02/18/2015 88.42 CONT RAST AORTOGRAM 02/18/2015 88.53 LT H EART ANGIOCARDIOGRAM 02/18/2015 88.56 ZACKERY WILLIAM ARTERIOGR-2 CATH 02/18/2015 [id number] ME ASURE OF CARDIAC SAMPL PRESSURE, L H 09/24/2017 [id number] FL UOROSCOPY OF MULT COR ART USING L OSM 09/24/2017 [id number] FL UOROSCOPY OF LEFT HEART USING LOW OSMO 09/24/2017 [id number] ME ASURE OF CARDIAC SAMPL PRESSURE, L H 10/13/2018 [id number] FL UOROSCOPY OF MULT COR ART USING L OSM 10/13/2018 [id number] FL UOROSCOPY OF LEFT HEART USING LOW OSMO 10/13/2018 [id number] FL UOROSCOPY OF THORACIC AORTA USING LOW 10/13/2018 [id number] IN SERTION OF ENDOTRACHEAL AIRWAY INTO TR 03/13/2020 [id number] RE SPIRATORY VENTILATION, 24- 96 CONSECUTI 03/13/2020 Results Test Result Range CBC With Differential/Platelet [...] poor plasma by coagulation assay See Footnote [facility] Prothrombin gene [id number] mutation detect ion - 08/23/17 11:01 Prothrombin gene [id number] mutation detection See fo otnote [facility] Comprehensive metabolic panel - 09/01/17 21:21 [...] e and target amplification method (units/volume) - 02/23/18 11:55 Hepatitis C virus (HCV) RNA viral load m easurement (log number/volume) 6.90 % <=1.07 Hepatitis C virus (HCV) RNA detection by PCR with reflex to quantitation [id number] <=11 HEPATITIS C GENOTYPE - 11/12/17 11:55 [...] CORRECTED 10.1 mg/dL 8.5-10.1 Serum or plasma neeix-0-rvnpyhqvuzk.tumo r marker measurement (mass/volume) - 06/24/18 12:38 Serum or plasma otmru-1-ysyhzlolgzg.tumo r marker measurement (mass/volume) 6.0 % 0.0-8.8 [...] volume) 1.12 ng/dL 0.70-1.48 Serum or plasma rzeiw-7-iktufydsadr.tumo r marker measurement (mass/volume) - 10/04/18 10:34 Serum or plasma tvtpi-6-ulzisbaebnq.tumo r marker measurement (mass/volume) 6.0 % 0.0-8.8 [...] Negative Urine-Blood Negative Negative Urine-Color Yellow Colorless-[place] Urine-Glucose Negative Negative Urine-Ketones Negative Negative Urine-Leukocytes Negative Negative Urine-Mucus 1+ Urine-Nitrite Negative Negative Urine-Other Urine Saved if Culture Need ed (48hrs from time of collection) Urine-pH 5.5 5-8.5 Urine-Protein Negative Negative Urine-RBC Negative Urine-Specific [place] 1.010 1.000-1 .030 Urine-WBC Rare/HPF Urobilinogen 0.2 [...] 7-25 CREATININE 1.49 mg/dL 0.70-1.25 eGFR NON-AFR. [place] 50 mL/min/1.73m2 > OR = 60 eGFR [...] Spotted Fever, IgM - 05/19/19 04:[address] Spotted Fever, IgM 0.25 index 0.00-0.89 Francisella tularensis Abs - 05/19/19 04 :53 Francisella tularensis IgG Negative Neg ative Francisella tularensis IgM Negative Neg ative Ehrlichia Ab Panel - 05/19/19 04:53 E. CHAFFEENSIS (HME) IGG TITER NEGATIVE NEG:<1:64 E. CHAFFEENSIS (HME) IGM TITER NEGATIVE NEG:<1:20 HGE IGG TITER NEGATIVE NEG:<1:64 HGE IGM TITER NEGATIVE NEG:<1:20 Jannet Mtn Spotted Fev,IgG - 05/19/19 04: 53 RMSF, IGG, EIA POSITIVE NEGATIVE RMSF, IGG, IFA 1:64 NEG <1:64 Jannet Mtn Spotted Fever, IgM - 05/19/19 04:53 JANNET MTN SPOTTED FEVER, IGM 0.25 INDEX 0.00-0.89 Francisella [...] Negative Urine-Blood Negative Negative Urine-Color Yellow Colorless-[place] Urine-Epithelial Cells 0-5/HPF Urine-Glucose Negative Negative Urine-Ketones Negative Negative Urine-Leukocytes Negative Negative Urine-Mucus 1+ Urine-Nitrite Negative Negative Urine-Other Urine Saved if Culture Need ed (48hrs from time of collection) Urine-pH 6.0 5-8.5 Urine-Protein Trace Negative Urine-RBC 0-2/HPF Urine-Specific [place] 1.015 1.000-1 .030 Urine-WBC 0-2/HPF Urobilinogen 0.2 [...] smear finding identification by light micr oscopy OK [facility] Comprehensive metabolic panel - 01/17/20 17:35 [...] lactic acid measurement (moles/volume) 1.61 mmol/L 0.50-2.00 COVID-19 IgG Only SO - 03/11/20 20:11 Coronavirus Ab [Units/volume] in Serum Negative Negative Complete urinalysis with reflex to cultu re [...] TIVE Urine propoxyphene detection NEGATIVE N EGATIVE Bacterial urine culture - 03/11/20 21:05 Bacterial urine culture [id number] NRG COLONY COUNT >100,000/ML NRG SUSCEPTIBILITY SUSCEPTIBILITY REPORTED 03/13/20 12: 20 NRG RAPID ID PRELIM RAPID ID TEST AT [facility] 03/12 07:30 NRG ID CONFIRMATION RML CONFIRMED ID 03/12 15:05 NRG Dirithromycin susceptibility test by dis k diffusion - 03/11/20 21:05 Gentamicin susceptibility test by minimum inhibitory c oncentration <= NRG Trimethoprim/sulfamethoxazole susceptibi lity test by minimum inhibitoryconcentration <= NRG Levofloxacin susceptibility test by minimum inhibitory concentration <= NRG Ampicillin susceptibility test by minimum inhibitory c oncentration <= NRG Cefazolin susceptibility test by minimum inhibitory co ncentration <= NRG Ceftriaxone susceptibility test by minimum inhibitory concentration <= NRG Ciprofloxacin susceptibility test by minimum inhibitor y concentration <= NRG Meropenem susceptibility test by minimum inhibitory co ncentration <= NRG Nitrofurantoin susceptibility test by vt nimum inhibitory concentration <= NRG Amoxicillin and clavulanate potassium susc GRETCHEN <= NRG Bacterial blood culture - 03/11/20 21:30 QUANTITY OF GROWTH . NRG Bacterial blood culture SEE COMMEN NRG Coronavirus SARS-CoV-2 SO 2019 - 0 21:35 Coronavirus Ab [Units/volume] in Serum Negative Negative Bacterial blood culture - 03/11/20 21:36 Bacterial blood culture NG NRG Blood lactic acid measurement (moles/vol ume) - 03/12/20 03:00 Blood lactic acid measurement (moles/volume) 1.54 mmol/L 0.50-2.00 Serum or plasma troponin i.cardiac measu rement (mass/volume) - 03/12/20 03:00 Serum or plasma troponin i.cardiac measurement (mass/v olume) 0.170 ng/mL <0.028 Lipid 1996 panel - 03/12/20 03:00 Serum or plasma triglyceride measurement (mass/volume) 72 mg/dL <150 Serum or plasma cholesterol measurement (mass/volume) 104 mg/dL < 200 Serum or plasma cholesterol in HDL measurement (mass/v olume) 26 mg/dL 40-60 Cholesterol in LDL [mass/volume] in serum or plasma by direct assay 63 mg/dL 1-129 Serum or plasma cholesterol in VLDL measurement (mass/ volume) 14 mg/dL 5-40 Whole blood basic metabolic panel - 02/19 12/07 03:00 Serum or plasma sodium measurement (moles/volume) 141 mmol/L 135-145 Serum or plasma potassium measurement (moles/volume) 3.8 mmol/L 3.6-5.0 Serum or plasma chloride measurement (moles/volume) 107 mmol/L 98-107 Carbon dioxide 23 mmol/L 21-32 Serum or plasma anion gap determination (moles/volume) 11 mmol/L 5-14 Serum or plasma urea nitrogen measurement (mass/volume ) 15 mg/dL 7-18 Serum or plasma creatinine measurement (mass/volume) 1.69 mg/dL 0.60-1.30 Serum or plasma urea nitrogen/creatinine mass ratio 9 NRG Serum or plasma creatinine measurement w ith calculation of estimated glomerular filtration rate 41 NRG Serum or plasma glucose measurement (mass/volume) 99 mg/dL 70-105 Serum or plasma calcium measurement (mass/volume) 8.7 mg/dL 8.5-10.1 Complete blood count (CBC) with automate d white blood cell (WBC) differential - 03/12/20 03:00 Blood leukocytes automated count (number/volume) 15.8 10*3/uL 4.3-11.0 Blood erythrocytes automated count (number/volume) 4.57 10*6/uL 4.35-5.85 Venous blood hemoglobin measurement (mass/volume) 12.8 g/dL 13.3-17.7 Blood hematocrit (volume fraction) 38 % 40-54 Automated erythrocyte mean corpuscular volume 84 [ foz_us] 80-99 Automated erythrocyte mean corpuscular h emoglobin (mass per erythrocyte) 28 pg 25-34 Automated erythrocyte mean corpuscular h emoglobin concentration measurement (mass/volume) 34 g/dL 32-36 Automated erythrocyte distribution width ratio 16. 1 % 10.0- 14.5 Automated blood platelet count (count/volume) 420 10*3/uL 130-400 Automated blood platelet mean volume measurement 11.1 [foz_us] 7.4-10.4 Automated blood neutrophils/100 leukocytes 77 % 42-75 Automated blood lymphocytes/100 leukocytes 10 % 12-44 Blood monocytes/100 leukocytes 12 % 0-12 Automated blood eosinophils/100 leukocytes 1 % 0-10 Automated blood basophils/100 leukocytes 0 % 0-10 Blood neutrophils automated count (number/volume) 12.1 10*3 1.8-7.8 Blood lymphocytes automated count (number/volume) 1.6 10*3 1.0-4.0 Blood monocytes automated count (number/volume) 2. 0 10*3 0.0-1.0 Automated eosinophil count 0.1 10*3/uL 0 .0-0.3 Automated blood basophil count (count/volume) 0.1 10*3/uL 0.0-0.1 Serum or plasma phosphate measurement (m ass/volume) - 03/12/20 03:00 Serum or plasma phosphate measurement (mass/volume) 4.0 mg/dL 2.3-4.7 Magnesium - 03/12/20 03:00 Magnesium 2.0 mg/dL 1.6-2.4 PROCALCITONIN (PCT) - 03/12/20 03:00 PROCALCITONIN (PCT) 0.48 ng/mL <0.10 Methicillin resistant Staphylococcus aur eus (MRSA) screening culture - 03/12/20 04:00 Methicillin resistant Staphylococcus aureus (MRSA) scr eening culture NEG [facility] Bacterial blood culture - 03/12/20 08:35 Bacterial blood culture NG NR Bacterial blood culture - 03/12/20 08:38 QUANTITY OF GROWTH . NR Bacterial blood culture SEE COMMEN NR Bacterial blood culture - 03/12/20 18:00 Bacterial blood culture NG [facility] Whole blood basic metabolic panel - 02/19 12/07 21:44 Serum or plasma sodium measurement (moles/volume) 140 [...] NRG Serum or plasma glucose measurement (mass/volume) 128 mg/dL 70-105 Serum or plasma calcium measurement (mass/volume) 7.9 mg/dL 8.5-10.1 Blood lactic acid measurement (moles/vol ume) - 03/12/20 21:44 Blood lactic acid measurement (moles/volume) 0.80 mmol/L 0.50-2.00 Sputum Gram stain - 03/12/20 23:52 Sputum Gram stain Many yeast NRG Bacterial sputum culture - 03/12/20 23:5 2 QUANTITY OF GROWTH SMALL AMOUNT NRG Bacterial sputum culture USUAL RESP NRG Complete blood count (CBC) with automate d white blood cell (WBC) differential - 03/13/20 04:12 Blood leukocytes automated count (number/volume) 21.6 10*3/uL 4.3-11.0 Blood erythrocytes automated count (number/volume) 4.01 10*6/uL 4.35-5.85 Venous blood hemoglobin measurement (mass/volume) 11.2 g/dL 13.3-17.7 Blood hematocrit (volume fraction) 34 % 40-54 Automated erythrocyte mean corpuscular volume 86 [ foz_us] 80-99 Automated erythrocyte mean corpuscular h emoglobin (mass per erythrocyte) 28 pg 25-34 Automated erythrocyte mean corpuscular h emoglobin concentration measurement (mass/volume) 33 g/dL 32-36 Automated erythrocyte distribution width ratio 16. 1 % 10.0- 14.5 Automated blood platelet count (count/volume) 332 10*3/uL 130-400 Automated blood platelet mean volume measurement 10.2 [foz_us] 7.4-10.4 Automated blood neutrophils/100 leukocytes 80 % 42-75 Automated blood lymphocytes/100 leukocytes 7 % 12-44 Blood monocytes/100 leukocytes 11 % 0-12 Automated blood eosinophils/100 leukocytes 2 % 0-10 Automated blood basophils/100 leukocytes 0 % 0-10 Blood neutrophils automated count (number/volume) 17.3 10*3 1.8-7.8 Blood lymphocytes automated count (number/volume) 1.4 10*3 1.0-4.0 Blood monocytes automated count (number/volume) 2. 4 10*3 0.0-1.0 Automated eosinophil count 0.3 10*3/uL 0 .0-0.3 Automated blood basophil count (count/volume) 0.0 10*3/uL 0.0-0.1 Whole blood basic metabolic panel - 02/19 01/07 04:12 Serum or plasma sodium measurement (moles/volume) 140 mmol/L 135-145 Serum or plasma potassium measurement (moles/volume) 4.4 mmol/L 3.6-5.0 Serum or plasma chloride measurement (moles/volume) 112 mmol/L 98-107 Carbon dioxide 20 mmol/L 21-32 Serum or plasma anion gap determination (moles/volume) 8 mmol/L 5-14 Serum or plasma urea nitrogen measurement (mass/volume ) 21 mg/dL 7-18 Serum or plasma creatinine measurement (mass/volume) 1.40 mg/dL 0.60-1.30 Serum or plasma urea nitrogen/creatinine mass ratio 15 NRG Serum or plasma creatinine measurement w ith calculation of estimated glomerular filtration rate 52 NRG Serum or plasma glucose measurement (mass/volume) 111 mg/dL 70-105 Serum or plasma calcium measurement (mass/volume) 8.1 mg/dL 8.5-10.1 Serum or plasma phosphate measurement (m ass/volume) - 03/13/20 04:12 Serum or plasma phosphate measurement (mass/volume) 3.1 mg/dL 2.3-4.7 Magnesium - 03/13/20 04:12 Magnesium 1.9 mg/dL 1.6-2.4 Manual absolute plasma cell count - 02/19 01/07 04:12 Blood monocytes/100 leukocytes 10 % NRG Manual blood segmented neutrophils/100 leukocytes 74 % NRG Blood band neutrophils/100 leukocytes 4 % NRG Manual blood lymphocytes/100 leukocytes 11 % NRG Manual eosinophils/100 leukocytes in nose 1 % NRG Blood hypochromia detection by light microscopy SL IGHT NRG Blood rouleaux detection by light microscopy SLIGH T NRG Blood mraiela cells detection by light microscopy SLI GHT NRG Acanthocyte detection SLIGHT NRG Blood schistocytes detection by light microscopy S LIGHT NRG Blood lactic acid measurement (moles/vol ume) - 03/13/20 06:01 Blood lactic acid measurement (moles/volume) 0.64 mmol/L 0.50-2.00 Bacterial blood culture - 03/13/20 06:01 Bacterial blood culture NG NRG Bacterial blood culture - 03/13/20 06:16 QUANTITY OF GROWTH Isolated NRG Bacterial blood culture [id number] NRG SUSCEPTIBILITY SUSCEPTIBILITY REPORTED 03/16 10:45 NRG [facility] - 03/13/20 06:1 6 Oxacillin susceptibility test by minimum inhibitory co ncentration > NRG Clindamycin susceptibility test by minimum inhibitory concentration <= NRG Erythromycin susceptibility test by minimum inhibitory concentration <= NRG Vancomycin susceptibility test by minimum inhibitory c oncentration 1 NRG Rifampin susceptibility test by minimum inhibitory con centration <= NRG Cefazolin susceptibility test by minimum inhibitory co ncentration R NRG Linezolid susceptibility test by minimum inhibitory co ncentration <= NRG Penicillin G susceptibility test by minimum inhibitory concentration > NRG Moxifloxacin susceptibility test by minimum inhibitory concentration S NRG Minocycline susc GRETCHEN <= NRG Bacterial blood culture - 03/13/20 06:17 Bacterial blood culture NG NRG Sputum Gram stain - 03/13/20 07:40 Sputum Gram stain No bacteria seen NRG Bacterial sputum culture - 03/13/20 07:4 0 QUANTITY OF GROWTH SMALL AMOUNT NRG Bacterial sputum culture USUAL RESP NRG RESPIRATORY VIRUS PANEL - 03/13/20 08:40 Serum ragweed IgE antibody assay Not Detected Not Detected Serum or plasma aripiprazole measurement (mass/volume) Footnote Not Detected PARAINFLU 3 PCR Footnote Not Detected METAPNEUMO PCR Not Detected Not Detecte d Adenovirus detection, CSF, PCR Footnote Not Detected INFLUENZA A PCR Not Detected Not Detect ed INFLUENZA B PCR Not Detected Not Detect ed TB GOLD QUANTIFERON PLUS - 03/13/20 08:4 0 [id number] 0.00 [iU]/mL 0.00-0.34 QuantiFERON-TB test Negative Negative Mycobacterium tuberculosis susceptibility test 0.0 2 [iU]/mL 0.00-7.99 Blood Mycobacterium tuberculosis tubercu oumar stimulated gamma interferon/mitogen stimulated gamma interferon ratio 0.53 [iU]/mL 0.50-10.00 Arterial blood gas measurement - 0 09:36 Blood pCO2 52 mm[Hg] 35-45 Blood pO2 50 mm[Hg] 79-93 Arterial blood bicarbonate measurement (moles/volume) 21 mmol/L 23-27 Arterial blood base excess by calculation -6.1 mmo l/L -2.5-2.5 Arterial blood oxygen saturation measurement 79 % 94-100 * Inhaled oxygen flow rate 65% NRG Arterial blood pH measurement with patient temperature correction 7.21 7.37-7.43 Arterial blood carbon dioxide, total measurement (mole s/volume) 22.3 mmol/L 21.0-31.0 Body site LEFT RADIAL NRG Assessment of wrist artery patency prior to arterial p uncture NA NRG Setting of ventilation mode YES NR G Measurement of body temperature 36.2 NRG Arterial blood gas measurement - 0 11:53 Blood pCO2 35 mm[Hg] 35-45 Blood pO2 115 mm[Hg] 79-93 Arterial blood bicarbonate measurement (moles/volume) 18 mmol/L 23-27 Arterial blood base excess by calculation -7.0 mmo l/L -2.5-2.5 Arterial blood oxygen saturation measurement 99 % 94-100 * Inhaled oxygen flow rate 65% NRG Arterial blood pH measurement with patient temperature correction 7.32 7.37-7.43 Arterial blood carbon dioxide, total measurement (mole s/volume) 19.0 mmol/L 21.0-31.0 Body site L RADIAL NRG Assessment of wrist artery patency prior to arterial p uncture YES-POS NRG Setting of ventilation mode YES NR G Measurement of body temperature 37 NRG Capillary blood glucose measurement by g lucometer (mass/volume) - 03/13/20 11:58 Capillary blood glucose measurement by glucometer (mas s/volume) 138 mg/dL 70-110 Arterial blood gas measurement - 0 16:19 Blood pCO2 42 mm[Hg] 35-45 Blood pO2 49 mm[Hg] 79-93 Arterial blood bicarbonate measurement (moles/volume) 18 mmol/L 23-27 Arterial blood base excess by calculation -7.5 mmo l/L -2.5-2.5 Arterial blood oxygen saturation measurement 77 % 94-100 * Inhaled oxygen flow rate 24 NRG Arterial blood pH measurement with patient temperature correction 7.26 7.37-7.43 Arterial blood carbon dioxide, total measurement (mole s/volume) 19.5 mmol/L 21.0-31.0 Body site LFT RAD NRG Assessment of wrist artery patency prior to arterial p uncture POS NRG Setting of ventilation mode YES NR G Measurement of body temperature 37.1 NRG Capillary blood glucose measurement by g lucometer (mass/volume) - 03/13/20 16:32 Capillary blood glucose measurement by glucometer (mas s/volume) 106 mg/dL 70-110 Capillary blood glucose measurement by g lucometer (mass/volume) - 03/13/20 17:37 Capillary blood glucose measurement by glucometer (mas s/volume) 178 mg/dL 70-110 Arterial blood gas measurement - 0 17:42 Blood pCO2 39 mm[Hg] 35-45 Blood pO2 65 mm[Hg] 79-93 Arterial blood bicarbonate measurement (moles/volume) 18 mmol/L 23-27 Arterial blood base excess by calculation -7.5 mmo l/L -2.5-2.5 Arterial blood oxygen saturation measurement 92 % 94-100 * Inhaled oxygen flow rate 26 NRG Arterial blood pH measurement with patient temperature correction 7.28 7.37-7.43 Arterial blood carbon dioxide, total measurement (mole s/volume) 19.2 mmol/L 21.0-31.0 Body site LFT RAD NRG Assessment of wrist artery patency prior to arterial p uncture POS NRG Setting of ventilation mode YES NR G Measurement of body temperature 36.8 NRG Capillary blood glucose measurement by g lucometer (mass/volume) - 03/13/20 23:02 Capillary blood glucose measurement by glucometer (mas s/volume) 250 mg/dL 70-110 Capillary blood glucose measurement by g lucometer (mass/volume) - 03/13/20 23:03 Capillary blood glucose measurement by glucometer (mas s/volume) 237 mg/dL 70-110 Whole blood basic metabolic panel - 02/19 02/06 04:15 Serum or plasma sodium measurement (moles/volume) 140 mmol/L 135-145 Serum or plasma potassium measurement (moles/volume) 3.6 mmol/L 3.6-5.0 Serum or plasma chloride measurement (moles/volume) 111 mmol/L 98-107 Carbon dioxide 16 mmol/L 21-32 Serum or plasma anion gap determination (moles/volume) 13 mmol/L 5-14 Serum or plasma urea nitrogen measurement (mass/volume ) 25 mg/dL 7-18 Serum or plasma creatinine measurement (mass/volume) 1.40 mg/dL 0.60-1.30 Serum or plasma urea nitrogen/creatinine mass ratio 18 NRG Serum or plasma creatinine measurement w ith calculation of estimated glomerular filtration rate 52 NRG Serum or plasma glucose measurement (mass/volume) 233 mg/dL 70-105 Serum or plasma calcium measurement (mass/volume) 8.2 mg/dL 8.5-10.1 Complete blood count (CBC) with automate d white blood cell (WBC) differential - 03/14/20 04:15 Blood leukocytes automated count (number/volume) 21.8 10*3/uL 4.3-11.0 Blood erythrocytes automated count (number/volume) 4.55 10*6/uL 4.35-5.85 Venous blood hemoglobin measurement (mass/volume) 12.5 g/dL 13.3-17.7 Blood hematocrit (volume fraction) 38 % 40-54 Automated erythrocyte mean corpuscular volume 84 [ foz_us] 80-99 Automated erythrocyte mean corpuscular h emoglobin (mass per erythrocyte) 27 pg 25-34 Automated erythrocyte mean corpuscular h emoglobin concentration measurement (mass/volume) 33 g/dL 32-36 Automated erythrocyte distribution width ratio 16. 7 % 10.0- 14.5 Automated blood platelet count (count/volume) 388 10*3/uL 130-400 Automated blood platelet mean volume measurement 10.7 [foz_us] 7.4-10.4 Automated blood neutrophils/100 leukocytes 95 % 42-75 Automated blood lymphocytes/100 leukocytes 1 % 12-44 Blood monocytes/100 leukocytes 4 % 0-12 Automated blood eosinophils/100 leukocytes 0 % 0-10 Automated blood basophils/100 leukocytes 0 % 0-10 Blood neutrophils automated count (number/volume) 20.7 10*3 1.8-7.8 Blood lymphocytes automated count (number/volume) 0.3 10*3 1.0-4.0 Blood monocytes automated count (number/volume) 0. 9 10*3 0.0-1.0 Automated eosinophil count 0.0 10*3/uL 0 .0-0.3 Automated blood basophil count (count/volume) 0.0 10*3/uL 0.0-0.1 Serum or plasma phosphate measurement (m ass/volume) - 03/14/20 04:15 Serum or plasma phosphate measurement (mass/volume) 2.1 mg/dL 2.3-4.7 Magnesium - 03/14/20 04:15 Magnesium 1.9 mg/dL 1.6-2.4 Vancomycin trough - 03/14/20 04:15 Vancomycin trough 17.0 ug/mL 10.0-20.0 PROCALCITONIN (PCT) - 03/14/20 04:15 PROCALCITONIN (PCT) 2.37 ng/mL <0.10 Serum or plasma troponin i.cardiac measu rement (mass/volume) - 03/14/20 04:15 Serum or plasma troponin i.cardiac measurement (mass/v olume) 0.145 ng/mL <0.028 Serum or plasma lithium measurement (mol es/volume) - 03/14/20 04:15 BNP PT 349.3 pg/mL <100.0 Arterial blood gas measurement - 0 04:25 Blood pCO2 36 mm[Hg] 35-45 Blood pO2 93 mm[Hg] 79-93 Arterial blood bicarbonate measurement (moles/volume) 17 mmol/L 23-27 Arterial blood base excess by calculation -8.1 mmo l/L -2.5-2.5 Arterial blood oxygen saturation measurement 97 % 94-100 * Inhaled oxygen flow rate AC MODE NRG Arterial blood pH measurement with patient temperature correction 7.30 7.37-7.43 Arterial blood carbon dioxide, total measurement (mole s/volume) 18.3 mmol/L 21.0-31.0 Body site LEFT RADIAL NRG Assessment of wrist artery patency prior to arterial p uncture YES-POS NRG Setting of ventilation mode YES NR G Measurement of body temperature 36.5 NRG Blood lactic acid measurement (moles/vol ume) - 03/14/20 06:05 Blood lactic acid measurement (moles/volume) 4.66 mmol/L 0.50-2.00 Serum or plasma lactate measurement (mol es/volume) - 03/14/20 08:35 Serum or plasma lactate measurement (moles/volume) 5.08 mmol/L 0.50-2.00 Capillary blood glucose measurement by g lucometer (mass/volume) - 03/14/20 11:52 Capillary blood glucose measurement by glucometer (mas s/volume) 189 mg/dL 70-110 Serum or plasma lactate measurement (mol es/volume) - 03/14/20 13:00 Serum or plasma lactate measurement (moles/volume) 4.89 mmol/L 0.50-2.00 Serum or plasma lactate measurement (mol es/volume) - 03/14/20 16:20 Serum or plasma lactate measurement (moles/volume) 3.63 mmol/L 0.50-2.00 Capillary blood glucose measurement by g lucometer (mass/volume) - 03/14/20 16:35 Capillary blood glucose measurement by glucometer (mas s/volume) 176 mg/dL 70-110 Capillary blood glucose measurement by g lucometer (mass/volume) - 03/14/20 18:05 Capillary blood glucose measurement by glucometer (mas s/volume) 153 mg/dL 70-110 Serum or plasma lactate measurement (mol es/volume) - 03/14/20 19:30 Serum or plasma lactate measurement (moles/volume) 2.92 mmol/L 0.50-2.00 Capillary blood glucose measurement by g lucometer (mass/volume) - 03/14/20 22:48 Capillary blood glucose measurement by glucometer (mas s/volume) 219 mg/dL 70-110 Serum or plasma lactate measurement (mol es/volume) - 03/14/20 23:05 Serum or plasma lactate measurement (moles/volume) 2.61 mmol/L 0.50-2.00 Complete blood count (CBC) with automate d white blood cell (WBC) differential - 03/15/20 02:30 Blood leukocytes automated count (number/volume) 35.3 10*3/uL 4.3-11.0 Blood erythrocytes automated count (number/volume) 4.33 10*6/uL 4.35-5.85 Venous blood hemoglobin measurement (mass/volume) 12.3 g/dL 13.3-17.7 Blood hematocrit (volume fraction) 35 % 40-54 Automated erythrocyte mean corpuscular volume 82 [ foz_us] 80-99 Automated erythrocyte mean corpuscular h emoglobin (mass per erythrocyte) 28 pg 25-34 Automated erythrocyte mean corpuscular h emoglobin concentration measurement (mass/volume) 35 g/dL 32-36 Automated erythrocyte distribution width ratio 16. 3 % 10.0- 14.5 Automated blood platelet count (count/volume) 398 10*3/uL 130-400 Automated blood platelet mean volume measurement 10.7 [foz_us] 7.4-10.4 Automated blood neutrophils/100 leukocytes 94 % 42-75 Automated blood lymphocytes/100 leukocytes 1 % 12-44 Blood monocytes/100 leukocytes 5 % 0-12 Automated blood eosinophils/100 leukocytes 0 % 0-10 Automated blood basophils/100 leukocytes 0 % 0-10 Blood neutrophils automated count (number/volume) 33.3 10*3 1.8-7.8 Blood lymphocytes automated count (number/volume) 0.2 10*3 1.0-4.0 Blood monocytes automated count (number/volume) 1. 6 10*3 0.0-1.0 Automated eosinophil count 0.0 10*3/uL 0 .0-0.3 Automated blood basophil count (count/volume) 0.0 10*3/uL 0.0-0.1 Serum or plasma lactate measurement (mol es/volume) - 03/15/20 02:30 Serum or plasma lactate measurement (moles/volume) 1.66 mmol/L 0.50-2.00 Whole blood basic metabolic panel - 02/19 03/09 02:30 Serum or plasma sodium measurement (moles/volume) 139 mmol/L 135-145 Serum or plasma potassium measurement (moles/volume) 3.4 mmol/L 3.6-5.0 Serum or plasma chloride measurement (moles/volume) 111 mmol/L 98-107 Carbon dioxide 18 mmol/L 21-32 Serum or plasma anion gap determination (moles/volume) 10 mmol/L 5-14 Serum or plasma urea nitrogen measurement (mass/volume ) 22 mg/dL 7-18 Serum or plasma creatinine measurement (mass/volume) 1.01 mg/dL 0.60-1.30 Serum or plasma urea nitrogen/creatinine mass ratio 22 NRG Serum or plasma creatinine measurement w ith calculation of estimated glomerular filtration rate > NRG Serum or plasma glucose measurement (mass/volume) 148 mg/dL 70-105 Serum or plasma calcium measurement (mass/volume) 8.0 mg/dL 8.5-10.1 Serum or plasma phosphate measurement (m ass/volume) - 03/15/20 02:30 Serum or plasma phosphate measurement (mass/volume) 2.3 mg/dL 2.3-4.7 Magnesium - 03/15/20 02:30 Magnesium 1.7 mg/dL 1.6-2.4 Serum or plasma triglyceride measurement (mass/volume) - 03/15/20 02:30 Serum or plasma triglyceride measurement (mass/volume) 85 mg/dL <150 Manual absolute plasma cell count - 02/19 03/09 02:30 Blood monocytes/100 leukocytes 4 % NRG Manual blood segmented neutrophils/100 leukocytes 91 % NRG Blood band neutrophils/100 leukocytes 4 % NRG Manual blood lymphocytes/100 leukocytes 1 % NRG Blood erythrocyte morphology finding identification NORMAL NRG Serum or plasma lithium measurement (mol es/volume) - 03/15/20 02:30 BNP PT 297.2 pg/mL <100.0 PROCALCITONIN (PCT) - 03/15/20 02:30 PROCALCITONIN (PCT) 1.36 ng/mL <0.10 Arterial blood gas measurement - 0 02:40 Blood pCO2 31 mm[Hg] 35-45 Blood pO2 76 mm[Hg] 79-93 Arterial blood bicarbonate measurement (moles/volume) 21 mmol/L 23-27 Arterial blood base excess by calculation -3.2 mmo l/L -2.5-2.5 Arterial blood oxygen saturation measurement 96 % 94-100 * Inhaled oxygen flow rate 45% NRG Arterial blood pH measurement with patient temperature correction 7.43 7.37-7.43 Arterial blood carbon dioxide, total measurement (mole s/volume) 21.5 mmol/L 21.0-31.0 Body site LEFT RADIAL NRG Assessment of wrist artery patency prior to arterial p uncture YES-POS NRG Setting of ventilation mode YES NR G Measurement of body temperature 36.0 NRG COVID-19 IgG Only SO - 03/15/20 03:30 Coronavirus Ab [Units/volume] in Serum Negative Negative Complete urinalysis with reflex to cultu re - 03/15/20 05:30 Urine color determination YELLOW NRG Urine clarity determination CLEAR NR G Urine pH measurement by test strip 6.5 5-9 Specific gravity of urine by test strip 1.020 1.016-1.022 Urine protein assay by test strip, semi-quantitative TRACE NEGATIVE Urine glucose detection by automated test strip NE GATIVE NEGATIVE Erythrocytes detection in urine sediment by light micr oscopy NEGATIVE NEGATIVE Urine ketones detection by automated test strip NE GATIVE NEGATIVE Urine nitrite detection by test strip NEGATIVE NEGATIVE Urine total bilirubin detection by test strip NEGA TIVE NEGATIVE Urine urobilinogen measurement by automated test strip (mass/volume) 0.2 mg/dL < = 1.0 Urine leukocyte esterase detection by dipstick 1+ NEGATIVE Automated urine sediment erythrocyte cou nt by microscopy (number/high power field) [HPF] NRG Automated urine sediment leukocyte count by microscopy (number/high power field) [HPF] NRG Bacteria detection in urine sediment by light microsco py NEGATIVE NRG Squamous epithelial cells detection in u rine sediment by light microscopy RARE NRG Crystals detection in urine sediment by light microsco py NONE NRG Casts detection in urine sediment by light microscopy NONE NRG Mucus detection in urine sediment by light microscopy NEGATIVE NRG Complete urinalysis with reflex to culture YES NRG Bacterial urine culture - 03/15/20 05:30 Bacterial urine culture NG NRG Coronavirus SARS-CoV-2 SO 2018 - 0 05:35 Coronavirus Ab [Units/volume] in Serum Negative Negative Capillary blood glucose measurement by g lucometer (mass/volume) - 03/15/20 12:08 Capillary blood glucose measurement by glucometer (mas s/volume) 132 mg/dL 70-110 Capillary blood glucose measurement by g lucometer (mass/volume) - 03/15/20 18:01 Capillary blood glucose measurement by glucometer (mas s/volume) 127 mg/dL 70-110 Capillary blood glucose measurement by g lucometer (mass/volume) - 03/15/20 18:33 Capillary blood glucose measurement by glucometer (mas s/volume) 122 mg/dL 70-110 Capillary blood glucose measurement by g lucometer (mass/volume) - 03/15/20 22:59 Capillary blood glucose measurement by glucometer (mas s/volume) 122 mg/dL 70-110 Complete blood count (CBC) with automate d white blood cell (WBC) differential - 03/16/20 02:39 Blood leukocytes automated count (number/volume) 26.7 10*3/uL 4.3-11.0 Blood erythrocytes automated count (number/volume) 4.42 10*6/uL 4.35-5.85 Venous blood hemoglobin measurement (mass/volume) 12.3 g/dL 13.3-17.7 Blood hematocrit (volume fraction) 36 % 40-54 Automated erythrocyte mean corpuscular volume 81 [ foz_us] 80-99 Automated erythrocyte mean corpuscular h emoglobin (mass per erythrocyte) 28 pg 25-34 Automated erythrocyte mean corpuscular h emoglobin concentration measurement (mass/volume) 34 g/dL 32-36 Automated erythrocyte distribution width ratio 16. 5 % 10.0- 14.5 Automated blood platelet count (count/volume) 420 10*3/uL 130-400 Automated blood platelet mean volume measurement 10.5 [foz_us] 7.4-10.4 Automated blood neutrophils/100 leukocytes 94 % 42-75 Automated blood lymphocytes/100 leukocytes 1 % 12-44 Blood monocytes/100 leukocytes 5 % 0-12 Automated blood eosinophils/100 leukocytes 0 % 0-10 Automated blood basophils/100 leukocytes 0 % 0-10 Blood neutrophils automated count (number/volume) 25.1 10*3 1.8-7.8 Blood lymphocytes automated count (number/volume) 0.3 10*3 1.0-4.0 Blood monocytes automated count (number/volume) 1. 3 10*3 0.0-1.0 Automated eosinophil count 0.0 10*3/uL 0 .0-0.3 Automated blood basophil count (count/volume) 0.0 10*3/uL 0.0-0.1 Whole blood basic metabolic panel - 02/19 04/08 02:39 Serum or plasma sodium measurement (moles/volume) 142 mmol/L 135-145 Serum or plasma potassium measurement (moles/volume) 3.9 mmol/L 3.6-5.0 Serum or plasma chloride measurement (moles/volume) 114 mmol/L 98-107 Carbon dioxide 19 mmol/L 21-32 Serum or plasma anion gap determination (moles/volume) 9 mmol/L 5-14 Serum or plasma urea nitrogen measurement (mass/volume ) 26 mg/dL 7-18 Serum or plasma creatinine measurement (mass/volume) 0.94 mg/dL 0.60-1.30 Serum or plasma urea nitrogen/creatinine mass ratio 28 NRG Serum or plasma creatinine measurement w ith calculation of estimated glomerular filtration rate > NRG Serum or plasma glucose measurement (mass/volume) 130 mg/dL 70-105 Serum or plasma calcium measurement (mass/volume) 7.9 mg/dL 8.5-10.1 Serum or plasma phosphate measurement (m ass/volume) - 03/16/20 02:39 Serum or plasma phosphate measurement (mass/volume) 2.7 mg/dL 2.3-4.7 Magnesium - 03/16/20 02:39 Magnesium 2.2 mg/dL 1.6-2.4 Arterial blood gas measurement - 0 02:46 Blood pCO2 32 mm[Hg] 35-45 Blood pO2 100 mm[Hg] 79-93 Arterial blood bicarbonate measurement (moles/volume) 21 mmol/L 23-27 Arterial blood base excess by calculation -2.1 mmo l/L -2.5-2.5 Arterial blood oxygen saturation measurement 98 % 94-100 * Inhaled oxygen flow rate 40% NRG Arterial blood pH measurement with patient temperature correction 7.44 7.37-7.43 Arterial blood carbon dioxide, total measurement (mole s/volume) 22.4 mmol/L 21.0-31.0 Body site LEFT RADIAL NRG Assessment of wrist artery patency prior to arterial p uncture YES-POS NRG Setting of ventilation mode YES NR G Measurement of body temperature 37.2 NRG Capillary blood glucose measurement by g lucometer (mass/volume) - 03/16/20 11:26 Capillary blood glucose measurement by glucometer (mas s/volume) 117 mg/dL 70-110 Encounters ACCT No. Visit Date/Time Discharge Status Pt. Type Provider Facility Loc./Unit Complaint [id number] 01/08/2017 10:09:00 Document Registration [id number] 09/24/2017 09:08:55 09/24/2017 23:59:5 9 CLS Outpatient [id number] 03/12/2020 09:49:00 14:10:00 DIS Inpatient SHAAN DRAPER, JUAN CARLOS Estevez [facility] ICU CHEST PAIN,UTI,N/V [id number] 02/20/2020 19:28:00 22:20:00 DIS Outpatient TERESA MENESES MD [facility] ER FS CHEST PAIN [id number] 01/17/2020 17:23:00 04/29/2 020 20:05:00 DIS Outpatient ENYART MD, KACY Feliciano [facility] ER FS CHEST PAIN [id number] 11/09/2019 14:00:00 15:54:00 DIS Outpatient LEEANNA DRAPER, FLACO Verma [facility] ER FS CHEST PAIN [id number] 05/29/2019 13:31:00 01:57:00 DIS Emergency POST DO, NELLY [facility] ER FS CHEST PAIN [id number] 04/10/2019 20:06:00 21:58:00 DIS Emergency DARCY DO, JOSE D [facility] ER FS FEELS WEAK, CHEST PAIN, SOB [id number] 03/09/2019 16:33:00 18:40:00 DIS Emergency POST DONELLY [facility] ER FS HIGH HEART RATE [id number] 03/01/2019 21:54:00 23:36:00 DIS Emergency LARRY DRAPER, MUNDO Lawson [facility] ER R ARM RASH [id number] 03/01/2019 11:23:00 12:17:00 DIS Outpatient ZAIRA DRAPER, TERESA Caal [facility] ER FS ABSCESS [id number] 01/06/2019 15:50:00 16:25:00 DIS Emergency NELLY POST DO [facility] ER FS POST OP WEAKNESS [id number] 10/12/2018 19:36:00 15:26:00 DIS Inpatient MARIBEL DRAPER, NIC Nguyễn [facility] ICU AFIB W RVR AND CP [id number] 10/04/2018 10:11:00 23:59:59 CLS Outpatient EMILIE BANEGAS APRN [facility] LAB I10 [id number] 10/04/2018 10:08:00 23:59:59 CLS Outpatient ERIKA DRAPER, JEOVANNY Mayo [facility] LAB SEE ORDER [id number] 09/05/2018 00:11:00 23:59:59 CLS Preadmit CARRINGTON GARAY [facility] CR3 CARDIAC REHAB P HASE III [id number] 08/05/2018 08:18:00 018 00:01:00 DIS Outpatient CARRINGTON GARAY [facility] CR3 CARDIAC REHAB P HASE III [id number] 08/23/2018 10:33:00 018 23:59:59 CLS Outpatient EMILIE BANEGAS APRN [facility] RAD ELEVATED TSH,THYROID T ENDERNESS [id number] 08/03/2018 07:26:00 00:01:00 DIS Outpatient CARRINGTON GARAY [facility] CR3 CARDIAC REHAB P HASE III [id number] 06/24/2018 12:24:00 018 23:59:59 CLS Outpatient JEOVANNY JAMES MD [facility] LAB B18.2 [id number] 02/18/2018 08:28:00 018 23:59:59 CLS Outpatient EMILIE BANEGAS APRN [facility] RAD GROIN PAIN,HERNIA [id number] 11/12/2017 11:37:00 018 23:59:59 CLS Outpatient JEOVANNY JAMES MD [facility] LAB B18.2 [id number] 11/09/2017 11:00:00 018 23:59:59 CLS Preadmit EMILIE BANEGAS APRN [facility] RAD NECK PAIN,LOW BACK PAIN [id number] 10/07/2017 08:00:00 018 23:59:59 CLS Preadmit Kitty PATTERSON MD [facility] CARD R07.9 CHEST PAIN [id number] 09/25/2017 20:08:00 018 21:54:00 DIS Emergency MAHI PANIAGUA DO [facility] ER CP [id number] 09/24/2017 04:14:00 018 16:25:00 DIS Inpatient JUAN MANUEL EVANS DO [facility] ICU A-FIB [id number] 09/01/2017 21:13:00 017 23:09:00 DIS Emergency MAHI PANIAGUA DO [facility] ER LEG CRAMPS;CHEST PAIN;B LOOD CLOTS [id number] 08/21/2017 08:27:00 017 13:45:00 DIS Inpatient JUAN MANUEL EVANS DO, [facility] 4TH PE,HYPOXIA [id number] 07/14/2017 09:27:00 017 13:45:00 DIS Outpatient IMMANUEL FRANCO MD [facility] ENDO ABD. PAIN/HX DIVERTICUL ITIS [id number] 07/12/2017 05:37:00 017 13:22:00 DIS Outpatient IMMANUEL FRANCO MD [facility] PREOP ABD. PAIN/HX DIVERTICUL ITIS [id number] 06/28/2017 20:15:00 017 21:29:00 DIS Emergency TERESA MENESES MD [facility] ER ABD PAIN/PASSING BLOOD IN STOOL [id number] 06/27/2017 19:26:00 017 22:19:00 DIS Emergency SAJAN CRUZ MD [facility] ER AB PAIN [id number] 05/13/2017 11:16:00 017 23:59:59 CLS Preadmit NAHOMI FLORES MD [facility] RAD MASS OF SINUS [id number] 02/16/2015 22:13:00 015 12:04:00 DIS Inpatient GILES CHRISTIANSON MD [facility] CSD TACHYCARDIA [id number] 11/25/2018 11:02:00 Document Registration [id number] 11/22/2017 10:40:00 Document Registration [id number] 02/18/2015 08:22:00 Document Registration [id number] 02/18/2015 08:21:00 Document Registration [id number] 02/18/2015 08:21:00 Document Registration [id number] 02/18/2015 08:21:00 Document Registration [id number] 09/20/2011 01:05:00 Document Registration [id number] 09/06/2011 00:55:00 Document Registration [id number] 04/10/2011 10:45:00 Document Registration [id number] 02/23/2011 16:44:00 Document Registration [id number] 02/21/2011 17:19:00 Document Registration [id number] 02/21/2011 08:45:00 Document Registration [id number] 02/14/2011 14:03:00 Document Registration [id number] 02/01/2011 20:31:00 Document Registration [id number] 10/29/2010 19:11:00 Document Registration [id number] 02/11/2010 06:03:00 Document Registration [id number] 05/24/2019 14:09:00 Document Registration [id number] 11/24/2018 04:35:00 019 09:20:00 DIS Emergency FREDERICK CASAREZ DO [facility] ER FS HEADACHE [id number] 03/06/2020 08:40:00 03/06/2020 23:59:5 9 CLS Outpatient NIKKI WILEY [facility] [id number] 02/14/2020 07:15:00 Document Registration [id number] 06/13/2019 10:15:00 Document Registration [id number] 02/20/2019 17:20:00 Document Registration [id number] 02/08/2019 14:00:00 Document Registration [id number] 05/24/2019 15:09:00 Document Registration [id number] 05/30/2019 10:10:00 Document Registration [id number] 12/21/2014 14:36:00 12/21/2014 23:59: 59 CLS Outpatient SHERRON VIRGEN DO [id number] 11/05/2014 10:03:00 11/05/2014 23:59: 59 CLS Outpatient SHERRON VIRGEN DO [id number] 11/05/2014 09:04:00 11/05/2014 23:59: 59 CLS Outpatient OLIVIA AUGUSTINE [id number] 09/27/2014 12:57:00 09/27/2014 23:59: 59 CLS Outpatient VIRGEN DOSHERRON [id number] 08/22/2014 08:19:00 08/22/2014 23:59: 59 CLS Outpatient OLIVIA AUGUSTINE [id number] 08/20/2014 11:14:00 08/20/2014 23:59: 59 CLS Outpatient VIRGEN DOSHERRON [id number] 08/20/2014 10:45:00 08/20/2014 23:59: 59 CLS Outpatient VIRGEN DO, SHERRON Syeda [id number] 07/23/2014 12:53:00 07/23/2014 23:59: 59 CLS Outpatient VIRGEN DO, SHERRON Syeda [id number] 07/23/2014 12:53:00 07/23/2014 23:59: 59 CLS Outpatient VIRGEN DO, SHERRON Syeda [id number] 06/21/2014 11:51:00 06/21/2014 23:59: 59 CLS Outpatient VIRGEN DO, SHERRON Syeda [id number] 06/20/2014 09:06:00 06/20/2014 23:59: 59 CLS Outpatient VIRGEN DO, SHERRON Syeda [id number] 06/05/2014 11:28:00 06/05/2014 23:59: 59 CLS Outpatient VIRGEN DO, SHERRON Syeda [id number] 05/08/2014 13:37:00 05/08/2014 23:59: 59 CLS Outpatient VIRGEN DOSHERRON [id number] 04/11/2014 12:20:00 04/11/2014 23:59: 59 CLS Outpatient VIRGEN DOYOCASTAA Syeda [id number] 03/12/2014 09:18:00 03/12/2014 23:59: 59 CLS Outpatient VIRGEN DO, SHERRON Syeda [id number] 02/19/2014 08:24:00 02/19/2014 23:59: 59 CLS Outpatient RYAN HALL APRN [id number] 02/13/2014 08:48:00 02/13/2014 23:59: 59 CLS Outpatient VIRGEN DO, SHERRON K [id number] 12/12/2013 16:22:00 12/12/2013 23:59: 59 CLS Outpatient RYNE ROGERS BRENNEN LEPEH [id number] 10/04/2013 09:47:00 10/04/2013 23:59: 59 CLS Outpatient BRENNEN MICHELE APRN [id number] 01/23/2013 11:08:00 01/23/2013 23:59: 59 CLS Outpatient BRENNEN MICHELE APRN [id number] 09/06/2012 10:35:00 09/06/2012 23:59: 59 CLS Outpatient BRENNEN MCIHELE APRN [id number] 04/08/2012 09:14:00 04/08/2012 23:59:5 9 CLS Outpatient [id number] 01/10/2013 11:04:00 Document Registration [id number] 02/01/2020 20:08:00 02/01/2020 23:48 :00 DIS Outpatient Jason [facility] ER [id number] 10/10/2019 18:31:00 10/10/2019 20:07 :00 DIS Outpatient Yanira [facility] ER [id number] 05/29/2019 12:35:00 05/29/2019 12:35: 00 DIS Outpatient Yanira [place] [id number] 05/27/2019 17:58:00 05/27/2019 20:50: 00 DIS Outpatient Herinikohussein [facility] ER [id number] 05/19/2019 03:52:00 05/19/2019 06:15: 00 DIS Outpatient RIVAS HERZOG [facility] ER [id number] 03/20/2019 17:55:00 03/20/2019 20:08: 00 DIS Outpatient Heriniko [facility] ER [id number] 02/03/2019 17:01:00 02/03/2019 19:16: 00 DIS Outpatient Yanira [facility] ER [id number] 08/05/2018 14:25:00 08/06/2018 08:30: 00 DIS Outpatient Eduardo Champagne [facility] ER [id number] 06/28/2017 21:46:00 06/29/2017 02:10: 00 DIS Outpatient ROSITA WATKINS [id number] 06/28/2017 23:55:46 Document Registration
[2020-03-29 00:06] LABS: INR 1.3 (0.8-1.4)
[2020-03-29 00:20] LABS: POTASSIUM 3.2 MMOL/L (3.6-5.0); SODIUM 138 MMOL/L (135-145)
--- NOTE | 2020-03-29 00:20 | NUR ---
PT STATES HE NEEDS TO URINATE. PT GIVEN A URINAL. PT STATES HE NEEDS HELP STANDING UP TO THE BEDSIDE. PT INFORMED THAT THIS WAS NOT POSSIBLE SINCE HE STATES HE CANNOT MOVE HIS LEGS. PT NOW STATES HE DOES NOT NEED TO URINATE. URINAL LEFT WITH PT HANGING ON SIDE RAIL OF BED.
[2020-03-29 00:21] LABS: ALANINE AMINOTRANSFERASE 26 U/L (0-55); ALBUMIN 3.6 GM/DL (3.2-4.5); ALKALINE PHOSPHATASE 93 U/L (40-136); BILIRUBIN,TOTAL 0.6 MG/DL (0.1-1.0); BUN/CREATININE RATIO 14; CARBON DIOXIDE 24 MMOL/L (21-32); CHLORIDE 104 MMOL/L (98-107); CREATININE SERUM 1.07 MG/DL (0.60-1.30); GFR ESTIMATED > 60; GLUCOSE 105 MG/DL (70-105); LIPASE 30 U/L (8-78); TOTAL PROTEIN 6.2 GM/DL (6.4-8.2)
[2020-03-29 00:43] VITALS: BP 151/78
--- NOTE | 2020-03-29 06:24 | Diagnostic Imaging Report ---
INDICATION: Cough. COMPARISON: 03/16/2020. FINDINGS: Single view of the chest demonstrates minimal basilar atelectasis having significantly improved compared to the prior exam. Patient is no longer intubated. The heart is slightly enlarged. No pulmonary edema. There is no pneumothorax. IMPRESSION: Minimal basilar atelectasis. Dictated by: Dictated on workstation # [id number]
== END 2020-03-29 00:43 | disposition home or self-care (01) ==
LOC: EDUNIT# 23:29 → ER FS 23:31
DX: R53.81 Other malaise (principal); R07.9 Chest pain, unspecified; I10 Essential (primary) hypertension; I48.91 Unspecified atrial fibrillation; E78.00 Pure hypercholesterolemia, unspecified; E03.9 Hypothyroidism, unspecified; F32.9 Major depressive disorder, single episode, unspecified; F41.9 Anxiety disorder, unspecified; Z86.711 Personal history of pulmonary embolism; Z87.828 Personal history of other (healed) physical injury and trauma; Z91.041 Radiographic dye allergy status; Z79.01 Long term (current) use of anticoagulants; Z87.891 Personal history of nicotine dependence; Z79.890 Hormone replacement therapy; Z85.038 Personal history of other malignant neoplasm of large intestine; Z82.49 Family history of ischemic heart disease and other diseases of the circulatory system
CPT/HCPCS: 36415; 71045; 80053; 83690; 83735; 83874; 83880; 84484; 85025; 85610; 85730; 93005; 93041

== ENCOUNTER 2020-03-29 16:58 | Inpatient (IN) | payer MEDICAID ==
[~2020-03-29] VITALS: Ht 182.9 cm; Wt 88.7 kg
--- NOTE | 2020-03-29 17:10 | ED General ---
General Stated Complaint: WEAKNESS Source of Information: Patient Exam Limitations: No Limitations History of Present Illness Date Seen by Provider: Mar 29, 2020 Time Seen by Provider: 17:10 Initial Comments To ER by private vehicle from home with reports of generalized weakness and inability to care for himself at home. He was just discharged yesterday from the [facility] following a prolonged admission. I initially admitted him here on 03/12/24 urinary tract infection/sepsis/paroxysmal A. fib. He declined during that admission required intubation and pressor support and was transferred to the [facility]. Diagnoses during the [facility] admission included acute ICU delirium -improved upon discharge with Trazodone respiratory failure with hypoxia and hypercarbia -Intubated then ultimately extubated and transitioned to room air and improved with diuresis severe sepsis due to urinary tract infection and gram-negative mica pneumonia -tx with zosyn Paroxysmal A. 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 Chronic low back pain -on home oxycodone BID Hepatitis C Post-Splenectomy Timing/Duration: Constant Severity: Moderate Associated Systoms: No Chest Pain, No Cough, No Diaphoresis, No Fever/Chills, No Headaches, No Nausea/Vomiting, No Shortness of Air, No Syncope; Weakness Allergies and Home Medications Allergies Uncoded Allergies: IV contrast (Allergy, Unknown, 03/11/20) Home Medications Alprazolam 1 Mg Tablet, 0.5 MG PO DAILY PRN for ANXIETY, (Reported) Alprazolam 1 Mg Tablet, 1 MG PO HS PRN for ANXIETY, (Reported) Amiodarone HCl 200 Mg Tablet, 400 MG PO BID, (Reported) PT PICKED UP ON 03-01-2020 & IS ON THE FIRST SET OF DIRECTIONS: 2 TABS TWICE DAILY X 14 DAYS THEN 1 TAB THREE TIMES DAILY X 30 DAYS THEN 2 TABS DAILY X 60 DAYS Apixaban 5 Mg Tablet, 5 MG PO BID, (Reported) Atorvastatin Calcium 40 Mg Tablet, 40 MG PO DAILY, (Reported) Dofetilide 125 Mcg Capsule, 125 MCG PO BID, (Reported) Levothyroxine Sodium 50 Mcg Tablet, 50 MCG PO DAILY, (Reported) Lisinopril 10 Mg Tablet, 10 MG PO DAILY, (Reported) Oxycodone HCl 10 Mg Tablet, 10 MG PO Q6H PRN for PAIN-SEVERE (8-10), (Reported) Patient Home Medication List Home Medication List Reviewed: Yes Review of Systems Review of Systems Constitutional: see HPI; No chills, No fever; malaise, weakness EENTM: see HPI Respiratory: no symptoms reported; No dyspnea on exertion Cardiovascular: no symptoms reported; No chest pain, No edema; Hx of Intervention; No palpitations Gastrointestinal: No abdominal pain, No constipation, No diarrhea Genitourinary: no symptoms reported Musculoskeletal: no symptoms reported Skin: no symptoms reported Psychiatric/Neurological: No Symptoms Reported, Emotional Problems Immunological/Allergic: no symptoms reported Past Dgdpwkp-Cljqfh-Tuearf Hx Patient Social History Type Used: Cigarettes Former Smoker, Quit: Jul 12, 1985 2nd Hand Smoke Exposure: No Recent Foreign Travel: No Contact w/Someone Who Travel: No Recent Hopitalizations: No Immunizations Up To Date Tetanus Booster (TDap): Unknown Date of Pneumonia Vaccine: Jul 21, 2018 Date of Influenza Vaccine: Jul 21, 2018 Seasonal Allergies Seasonal Allergies: No Past Medical History Surgeries: Yes (Cardiac Ablation ) Appendectomy Respiratory: Yes Pulmonary Embolism Cardiac: Yes Atrial Fibrillation, High Cholesterol, Hypertension, Irregular Heartbeat Neurological: Yes Headaches /Migraines Reproductive Disorders: No Sexually Transmitted Disease: Yes (Hep C: treated) HIV/AIDS: No Genitourinary: No Prostate Problems Gastrointestinal: No Diverticulosis, Hemorrhoids Musculoskeletal: No Arthritis Endocrine: Yes Hypothyroidsim HEENT: No Loss of Vision: Denies Hearing Impairment: Denies Cancer: Yes Colon Did You Recieve Any Treatments: Yes What Type of Treatment Did You: Surgical Intervention Psychosocial: Yes Anxiety, Depression Integumentary: No Blood Disorders: No Adverse Reaction/Blood Tranf: No Family Medical History Heart Disease, Hypertension Physical Exam Vital Signs Vital Signs - First Documented 03/29/20 17:00 Temp 36.8 Pulse 93 Resp 20 B/P (MAP) 139/90 (106) Pulse Ox 97 Capillary Refill : Height, Weight, BMI Height: 6'0" Weight: 224lbs. 0oz. 101.894308gs; 26.00 BMI Method:Stated General Appearance: No Apparent Distress, WD/WN, Other (alert and oriented to person place time and situation. Doesn't recall any details from his admission. Does require assistance getting from wheelchair to bed and lifting his legs onto the bed. Blood pressure 139/90, heart rate 84 sinus, oxygen 95% room air, afebrile.) HEENT: PERRL/EOMI, TMs Normal Neck: Full Range of Motion, Normal Inspection Respiratory: Normal Breath Sounds, No Accessory Muscle Use, No Respiratory Distress Cardiovascular: Regular Rate, Rhythm, Normal Peripheral Pulses Gastrointestinal: Non Tender, Soft, Other Extremity: Normal Capillary Refill, Normal Inspection, Swelling (trace pitting edema bilateral lower extremities) Neurologic/Psychiatric: Alert, Oriented x3 Skin: Normal Color, Warm/Dry Procedures/Interventions Date of ETT Placement: Mar 13, 2020 Time of ETT Placement: 729 Progress/Results/Core Measures Suspected Sepsis SIRS Temperature: Pulse: Respiratory Rate: Laboratory Tests 03/29/20 17:10: White Blood Count 6.3 Blood Pressure / Mean: Laboratory Tests 03/29/20 17:10: Creatinine 1.18, INR Comment 1.2, Platelet Count 688H, Total Bilirubin 0.6 Results/Orders Lab Results Laboratory Tests Test 03/29/20 17:10 Range/Units White Blood Count 6.3 4.3-11.0 10^3/uL Red Blood Count 4.14 L 4.35-5.85 10^6/uL Hemoglobin 11.6 L 13.3-17.7 G/DL Hematocrit 34 L 40-54 % Mean Corpuscular Volume 81 80-99 FL Mean Corpuscular Hemoglobin 28 25-34 PG Mean Corpuscular Hemoglobin Concent 34 32-36 G/DL Red Cell Distribution Width 15.6 H 10.0-14.5 % Platelet Count 688 H 130-400 10^3/uL Mean Platelet Volume 10.2 7.4-10.4 FL Neutrophils (%) (Auto) 70 42-75 % Lymphocytes (%) (Auto) 13 12-44 % Monocytes (%) (Auto) 14 H 0-12 % Eosinophils (%) (Auto) 3 0-10 % Basophils (%) (Auto) 1 0-10 % Neutrophils # (Auto) 4.4 1.8-7.8 X 10^3 Lymphocytes # (Auto) 0.8 L 1.0-4.0 X 10^3 Monocytes # (Auto) 0.9 0.0-1.0 X 10^3 Eosinophils # (Auto) 0.2 0.0-0.3 10^3/uL Basophils # (Auto) 0.1 0.0-0.1 10^3/uL Prothrombin Time 15.8 H 12.2-14.7 SEC INR Comment 1.2 0.8-1.4 Sodium Level 139 135-145 MMOL/L Potassium Level 3.1 L 3.6-5.0 MMOL/L Chloride Level 106 98-107 MMOL/L Carbon Dioxide Level 22 21-32 MMOL/L Anion Gap 11 5-14 MMOL/L Blood Urea Nitrogen 13 7-18 MG/DL Creatinine 1.18 0.60-1.30 MG/DL Estimat Glomerular Filtration Rate > 60 BUN/Creatinine Ratio 11 Glucose Level 108 H 70-105 MG/DL Calcium Level 9.1 8.5-10.1 MG/DL Corrected Calcium 9.3 8.5-10.1 MG/DL Total Bilirubin 0.6 0.1-1.0 MG/DL Aspartate Amino Transf (AST/SGOT) 22 5-34 U/L Alanine Aminotransferase (ALT/SGPT) 30 0-55 U/L Alkaline Phosphatase 96 40-136 U/L Total Protein 6.7 6.4-8.2 GM/DL Albumin 3.8 3.2-4.5 GM/DL My Orders Orders - LATRICE AGARWAL [employer]INEERING ADVISOR Cbc With Automated Diff (03/29/20 17:03) Comprehensive Metabolic Panel (03/29/20 17:03) BNP (03/29/20 17:03) Chest 1 View, Ap/Pa Only (03/29/20 17:04) Ed Iv/Invasive Line Start (03/29/20 17:04) Ua Culture If Indicated (03/29/20 17:04) Protime With Inr (03/29/20 17:04) Magnesium (03/29/20:31) Thyroid Stimulating Hormone (03/29/20 17:31) Free T4 (Free Thyroxine) (03/29/20 17:31) Ekg Tracing (03/29/20 17:34) Vital Signs/I&O 03/29/20 17:00 Temp 36.8 Pulse 93 Resp 20 B/P (MAP) 139/90 (106) Pulse Ox 97 Capillary Refill : Diagnostic Imaging Diagonstic Imaging: Xray Comments NAME: JUAN CARLOS GAFFNEY [facility] REC#: [id number] PT STATUS: REG ER : 1960 PHYSICIAN: LATRICE AGARWAL APRN ADMIT DATE: 03/29/20/ER Draft Date of Exam:03/29/20 CHEST 1 VIEW, AP/PA ONLY HISTORY: Chest pain. TECHNIQUE: Frontal view of the chest. COMPARISON: 03/28/2020. FINDINGS: Lung volumes are normal. There is mildly increased linear opacity in the left lung base. No pleural effusion or pneumothorax is seen. The cardiac silhouette is normal in size. IMPRESSION: 1. Linear opacity in the left lung base, may represent atelectasis or infiltrate. Dictated on workstation # [id number] Dict: 03/29/20 1733 Trans: 03/29/20 1737 [id number] Interpreted by: LUPE MO MD Electronically signed by: Departure Communication (Admissions) Time/Spoke to Admitting Phy: 17:29 Impression Primary Impression: Physical debility Additional Impression: General weakness Disposition: ADMITTED INPATIENT Condition: Stable Admissions Decision to Admit Reason: Admit from ER (General) Decision to Admit/Date: Mar 29, 2020 Time/Decision to Admit Time: 17:29 Departure-Patient Inst. Decision time for Depature: 17:27 Referrals: [facility] (PCP) Primary Care Physician NIKKI WILEY APRN (Family) Primary Care Physician LATRICE AGARWAL APRN Mar 29, 2020 17:10
[2020-03-29 17:19] LABS: BASOPHILS # (AUTO) 0.1 10^3/uL (0.0-0.1); BASOPHILS % (AUTO) 1 % (0-10); EOSINOPHILS # (AUTO) 0.2 10^3/uL (0.0-0.3); EOSINOPHILS % (AUTO) 3 % (0-10); HEMATOCRIT 34 % (40-54); HEMOGLOBIN 11.6 G/DL (13.3-17.7); LYMPHOCYTES # (AUTO) 0.8 X 10^3 (1.0-4.0); LYMPHOCYTES % (AUTO) 13 % (12-44); MEAN CORPUSCULAR HEMOGLOBIN 28 PG (25-34); MEAN CORPUSCULAR HGB CONC 34 G/DL (32-36); MEAN CORPUSCULAR VOLUME 81 FL (80-99); MEAN PLATELET VOLUME 10.2 FL (7.4-10.4); MONOCYTES # (AUTO) 0.9 X 10^3 (0.0-1.0); MONOCYTES % (AUTO) 14 % (0-12); NEUTROPHILS # (AUTO) 4.4 X 10^3 (1.8-7.8); NEUTROPHILS % (AUTO) 70 % (42-75); PLATELET COUNT 688 10^3/uL (130-400); RED CELL DISTRIBUTION WIDTH 15.6 % (10.0-14.5); WHITE BLOOD COUNT 6.3 10^3/uL (4.3-11.0)
[2020-03-29 17:29] LABS: ALBUMIN 3.8 GM/DL (3.2-4.5); CHLORIDE 106 MMOL/L (98-107); INR 1.2 (0.8-1.4); POTASSIUM 3.1 MMOL/L (3.6-5.0); PROTHROMBIN TIME PATIENT 15.8 SEC (12.2-14.7); SODIUM 139 MMOL/L (135-145)
[2020-03-29 17:30] LABS: CALCIUM 9.1 MG/DL (8.5-10.1)
[2020-03-29 17:31] LABS: GLUCOSE 108 MG/DL (70-105)
[2020-03-29 17:32] LABS: TOTAL PROTEIN 6.7 GM/DL (6.4-8.2)
[2020-03-29 17:33] LABS: BILIRUBIN,TOTAL 0.6 MG/DL (0.1-1.0); CARBON DIOXIDE 22 MMOL/L (21-32)
[2020-03-29 17:35] LABS: ALKALINE PHOSPHATASE 96 U/L (40-136); CREATININE SERUM 1.18 MG/DL (0.60-1.30); GFR ESTIMATED > 60
[2020-03-29 17:36] LABS: BUN/CREATININE RATIO 11
--- NOTE | 2020-03-29 17:37 | Diagnostic Imaging Report ---
HISTORY: Chest pain. TECHNIQUE: Frontal view of the chest. COMPARISON: 03/28/2020. FINDINGS: Lung volumes are normal. There is mildly increased linear opacity in the left lung base. No pleural effusion or pneumothorax is seen. The cardiac silhouette is normal in size. IMPRESSION: 1. Linear opacity in the left lung base, may represent atelectasis or infiltrate. Dictated by: Dictated on workstation # [id number]
[2020-03-29 17:38] LABS: ALANINE AMINOTRANSFERASE 30 U/L (0-55)
[2020-03-29 18:06] LABS: FREE T4 (FREE THYROXINE) 1.41 NG/DL (0.70-1.48)
[2020-03-29] MEDS ORDERED: BISACODYL 10 MG SUPP (DULCOLAX) PR PRN (18:15)
[2020-03-29] MEDS ORDERED: DOCUSATE SODIUM 100 MG (COLACE) CAP PO PRN (18:15)
[2020-03-29] MEDS ORDERED: HYDROcodone/APAP 10 MG/325 MG (LORTAB) TAB PO PRN (18:15)
[2020-03-29] MEDS ORDERED: LOPERAMIDE 2 MG (IMODIUM) TABLET PO PRN (18:15)
[2020-03-29] MEDS ORDERED: NON-FORMULARY MEDICATION 1 EA EA (Oxycodone HCl 10 MG) PO PRN (18:15)
[2020-03-29] MEDS ORDERED: ONDANSETRON 4 MG (ZOFRAN) ORAL DISSOLVE TAB PO PRN (18:15)
[2020-03-29] MEDS ORDERED: ENOXAPARIN 40 MG/0.4 ML (LOVENOX) SYR SC SCH (18:15)
[2020-03-29] MEDS ORDERED: CALCIUM CARBONATE 500 MG (TUMS) TAB.CHEW PO PRN (18:15)
[2020-03-29] MEDS ORDERED: diphenhydrAMINE 25 MG TAB (BENADRYL) PO PRN (18:15)
[2020-03-29] MEDS ORDERED: MELATONIN 3 MG TABLET PO PRN (18:15)
--- NOTE | 2020-03-29 18:50 | NUR ---
JUAN CARLOS GAFFNEY admitted to room 411-1, with an admitting diagnosis of WEAKNESS, on 03/29/20 from ER via W/C, accompanied by STAFF.JUAN CARLOS GAFFNEY introduced to surroundings, call light, bed controls, phone, TV, temperature control, lights, meal times, smoking policy, visitor policy, side rail policy, bathrooms and showers. Patient Rights given to patient in the handbook.JUAN CARLOS GAFFNEY verbalizes understanding that [facility] is not responsible for the loss or damage to any personal effects or valuables that are kept in the patients posession during their hospitalization. The following Patient Care Plans were discussed with the PT: Discharge Planning, PAIN CONTROL,IV THERAPY, and PT/OT/REHAB, TESTS AND PROCEDURES. JUAN CARLOS GAFFNEY verbalizes understanding of Interdisciplinary Patient Education. Patient and/or family were informed about the Rapid Response Team and its purpose.
[2020-03-29 18:56] VITALS: BP 123/76
[2020-03-29] MEDS ORDERED: CATHETER FLUSH 10 ML SYR IV PRN (19:00)
[2020-03-29 19:01] VITALS: BP 123/76
[2020-03-29] MEDS: APIXABAN 5 MG (ELIQUIS) TABLET PO SCH (20:52)
[2020-03-29] MEDS: SENNA W/DOCUSATE (SENOKOT S) TABLET PO SCH (20:52)
[2020-03-29] MEDS: ALPRAZolam 1 MG (XANAX) TAB PO SCH (20:52)
[2020-03-29] MEDS: CATHETER FLUSH 10 ML SYR IV SCH (20:53)
[2020-03-30] VITALS: BP 124/73
[2020-03-30 04:00] VITALS: BP 115/74
[2020-03-30 04:25] LABS: BILIRUBIN,URINE NEGATIVE (NEGATIVE); CLARITY,URINE CLOUDY; COLOR,URINE YELLOW; GLUCOSE, URINE (UA) NEGATIVE (NEGATIVE); KETONES,URINE NEGATIVE (NEGATIVE); LEUKOCYTE ESTERASE ,URINE 3+ (NEGATIVE); NITRITE,URINE POSITIVE (NEGATIVE); PH,URINE 6.5 (5-9); PROTEIN,URINE 1+ (NEGATIVE)
[2020-03-30 04:32] LABS: BACTERIA,URINE LARGE /HPF; RBC,URINE 25-50 /HPF
[2020-03-30 06:03] LABS: BASOPHILS # (AUTO) 0.1 10^3/uL (0.0-0.1); BASOPHILS % (AUTO) 1 % (0-10); EOSINOPHILS # (AUTO) 0.4 10^3/uL (0.0-0.3); EOSINOPHILS % (AUTO) 4 % (0-10); HEMATOCRIT 33 % (40-54); HEMOGLOBIN 11.1 G/DL (13.3-17.7); LYMPHOCYTES # (AUTO) 0.9 X 10^3 (1.0-4.0); LYMPHOCYTES % (AUTO) 8 % (12-44); MEAN CORPUSCULAR HEMOGLOBIN 27 PG (25-34); MEAN CORPUSCULAR HGB CONC 33 G/DL (32-36); MEAN CORPUSCULAR VOLUME 82 FL (80-99); MEAN PLATELET VOLUME 10.7 FL (7.4-10.4); MONOCYTES # (AUTO) 1.1 X 10^3 (0.0-1.0); MONOCYTES % (AUTO) 10 % (0-12); NEUTROPHILS # (AUTO) 8.3 X 10^3 (1.8-7.8); NEUTROPHILS % (AUTO) 77 % (42-75); PLATELET COUNT 647 10^3/uL (130-400); RED CELL DISTRIBUTION WIDTH 15.7 % (10.0-14.5); WHITE BLOOD COUNT 10.8 10^3/uL (4.3-11.0)
[2020-03-30 06:19] LABS: ALBUMIN 3.5 GM/DL (3.2-4.5); CHLORIDE 107 MMOL/L (98-107); POTASSIUM 3.2 MMOL/L (3.6-5.0); SODIUM 141 MMOL/L (135-145)
[2020-03-30 06:22] LABS: GLUCOSE 98 MG/DL (70-105)
[2020-03-30 06:23] LABS: BILIRUBIN,TOTAL 0.6 MG/DL (0.1-1.0); CARBON DIOXIDE 23 MMOL/L (21-32)
[2020-03-30 06:25] LABS: ALKALINE PHOSPHATASE 91 U/L (40-136); CREATININE SERUM 1.08 MG/DL (0.60-1.30); GFR ESTIMATED > 60
[2020-03-30 06:27] LABS: BUN/CREATININE RATIO 12
[2020-03-30 06:28] LABS: ALANINE AMINOTRANSFERASE 26 U/L (0-55)
[2020-03-30] MEDS: CATHETER FLUSH 10 ML SYR IV SCH ×3 (06:56→19:53)
[2020-03-30] MEDS: KCL 20 MEQ TAB (K-DUR) PO SCH (06:57)
[2020-03-30] MEDS: LEVOTHYROXINE 50 MCG (LEVOTHROID) TAB PO SCH (06:57)
[2020-03-30 07:58] VITALS: BP 127/77
[2020-03-30] MEDS: ACETAMINOPHEN 500 MG TAB (TYLENOL) PO PRN (08:36)
[2020-03-30] MEDS: ALPRAZolam 0.5 MG (XANAX) TAB PO PRN (08:43)
--- NOTE | 2020-03-30 08:45 | NUR ---
patient shaking and complaining of being cold. temperature taken currently at 38.3 or 100.94 F Tylenol given and patient stated he would like Xanax at this time to help with his anxiety of being in the hospital again. will check temperature again
[2020-03-30] MEDS: lisINopril 10 MG (PRINIVIL) TABLET PO SCH (09:57)
[2020-03-30] MEDS: SENNA W/DOCUSATE (SENOKOT S) TABLET PO SCH ×2 (09:57→19:52)
[2020-03-30] MEDS: APIXABAN 5 MG (ELIQUIS) TABLET PO SCH ×2 (09:57→19:52)
[2020-03-30] MEDS ORDERED: NS IV 1000 ML 1,000 ML ONE (10:02)
[2020-03-30] MEDS: NS IV 1000 ML 1,000 ML IV SCH ×2 (10:09→19:57)
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
--- NOTE | 2020-03-30 10:24 | Diagnostic Imaging Report ---
Indication: Dyspnea with fever. Comparison: 03/29/2020. Discussion: Single portable upright view of the chest was obtained. Improved aeration of the lingula. No consolidation on this exam. No pleural fluid or pneumothorax. Normal heart size. No osseous abnormality. Impression: 1. Negative chest. Dictated by: Dictated on workstation # [id number]
[2020-03-30] MEDS ORDERED: VANCOMYCIN INJECTION 1,000 MG in NS (IVPB) 250 ML IV SCH (10:30)
--- NOTE | 2020-03-30 10:52 | Physical Therapy Evaluation ---
PT Evaluation-General Medical Diagnosis Admission Date Mar 29, 2020 at 17:29 Medical Diagnosis: UTI/SEPSIS Onset Date: Mar 29, 2020 Therapy Diagnosis Therapy Diagnosis: UNSTEADY GAIT Height/Weight Height (Feet): 6 Height (Inches): 0 Weight (Pounds): 224 Weight (Ounces): 0 Precautions Precautions/Isolations: Fall Prevention, Standard Precautions Weight Bear Status Right Lower Extremity: Right Weight Bearing/Tolerated Left Lower Extremity: Left Weight Bearing/Tolerated Medical History Pertinent Medical History: Atrial Fib, Arthritis, Diverticulitis Additional Medical History chronic low back pain Prior Prior Level of Function SCALE: Activities may be completed with or without assistive devices. 0-Hcjkvemucz-sxxedrh completes the activity by him/herself with no assistance from a helper. 5-Set-up or Clean-up Assistance-helper sets up or cleans up; patient completes activity. [place] assists only prior to or following the activity. 4-Supervision or Touching Assistance-helper provides verbal cues and/or touching/steadying and/or contact guard assistance as patient completes activity. Assistance may be provided throughout the activity or intermittently. 3-Partial/Moderate Assistance-helper does LESS THAN HALF the effort. [place] lifts, holds or supports trunk or limbs, but provides less than half the effort. 2-Substantial/Maximal Assistance-helper does MORE THAN HALF the effort. [place] lifts or holds trunk or limbs and provides more than half the effort. 9-Yfbzqzici-wrndze does ALL the effort. Patient does none of the effort to complete the activity. Or, the assistance of 2 or more helpers is required for the patient to complete the activity. If activity was not attempted, code reason: 7-Patient Refused. 9-Not Applicable-not attempted and the patient did not perform the activity before the current illness, exacerbation or injury. 10-Not Attempted due to Environmental Limitations-(lack of equipment, weather restraints, etc.). 88-Not Attempted due to Medical Conditions or Safety Concerns. Bed Mobility: 6 Transfers (B,C,W/C): 6 Gait: 6 Stairs: 6 PT Evaluation-Current Subjective Pt reports the last few weeks are fuzzy. He was admitted to this hospital and then due to complications was sent to were he was intubated. He returned home but was not able to manage due to weakness. Admitted here on 03/29. Objective Patient Orientation: Person, Place, Situation Attachments: IV ROM/Strength ROM Upper Extremities WFL ROM Lower Extremities WFL Strength Upper Extremities 4/5 Strength Lower Extremities 4/5 Integumentary/Posture Bowel Incontinence: Yes Bladder Incontinence: Yes Neuromuscular (Tone, Coordination, Reflexes) Pt having intention tremors in the legs during gait. Increase with fatigue. Sensory Vision: Functional Hearing: Functional Sensation Right Lower Extremit: Impaired Sensation Left Lower Extremity: Impaired Transfers Roll Left to Right (QC): 5 Sit to Lying (QC): 5 Lying to Sitting/Side of Bed(Q: 4 Sit to Stand (QC): 4 Chair/Lbk-ig-Iscyw Xfer(QC): 4 Toilet Transfer (QC): 4 Gait Does the Patient Walk?: Yes Mode of Locomotion: Walk Walk 10 feet (QC): 4 Walk 50 ft with 2 Turns(QC): 4 Distance: 100ft Gait Assistive Device: Handheld Assist Comments/Gait Description Pt refused the walker. Reports he doesn't use one at home and does not want to start. He held the rail on the wall. LEs became unsteady after 75ft due to fatigue. Wheelchair Training Does the Pt Use a Wheelchair?: No Balance Sitting Static: Normal Sitting Dynamic: Normal Standing Static: Fair Standing Dynamic: Poor Assessment/Needs Pt has weakness and sudden onset of LE fatigue. He is unsteady during gait. Pt will benefit from PT to increase strength and gait stability. Rehab Potential: Good PT Fpc Goals Fpc Goals PT Truck Jumper Goals Time Frame: Apr 05, 2020 Roll Left & Right (QC): 6 Sit to Lying (QC): 6 Lying-Sitting on Side/Bed(QC): 6 Sit to Stand (QC): 6 Chair/Lkj-mg-Nmnze Xfer(QC): 6 Toilet Transfer (QC): 6 Car Transfer (QC): 6 Walk 10 feet (QC): 6 Walk 50ft with 2 Turns (QC): 6 Walk 150 ft (QC): 6 Walking 10ft on Uneven Surface: 6 1 Step (curb) (QC): 6 4 Steps (QC): 6 Picking up an Object (QC): 5 PT Plan Problem List Problem List: Activity Tolerance, Functional Strength, Safety, Balance, Gait Treatment/Plan Treatment Plan: Continue Plan of Care Treatment Plan: Bed Mobility, Education, Functional Activity Vanessa, Functional Strength, Group Therapy, Gait, Safety, Therapeutic Exercise Treatment Duration: Apr 05, 2020 Frequency: 6 times per week Estimated Hrs Per Day: .25 hour per day Patient and/or Family Agrees t: Yes Safety Risks/Education Patient Education: Gait Training, Steps Teaching Recipient: Patient Discharge Recommendations Therapy Discharge Recommendati: Post Acute PT Target Placement home Time/GCodes Time In: 950 Time Out: 1010 Total Billed Treatment Time: 20 Total Billed Treatment visit, eval moderate complexity 20 minutes MERCY ARGUETA PT Mar 30, 2020 10:52
[2020-03-30] MEDS ORDERED: PIPERACILLIN/TAZOBACTAM (BULK) 4.5 GM in NS (IVPB) 100 ML IV NR (11:00)
[2020-03-30 11:11] VITALS: BP 106/65
--- NOTE | 2020-03-30 11:20 | NUR ---
CRITICAL LACTIC ACID OF 2.22 REPORTED TO EVANS
[2020-03-30 11:22] LABS: BILIRUBIN,URINE NEGATIVE (NEGATIVE); CLARITY,URINE CLOUDY; COLOR,URINE YELLOW; GLUCOSE, URINE (UA) NEGATIVE (NEGATIVE); KETONES,URINE NEGATIVE (NEGATIVE); LEUKOCYTE ESTERASE ,URINE 3+ (NEGATIVE); NITRITE,URINE POSITIVE (NEGATIVE); PROTEIN,URINE 1+ (NEGATIVE)
--- NOTE | 2020-03-30 11:29 | NUR ---
current temperature 38.5. antibiotics infusing
[2020-03-30 11:53] LABS: BACTERIA,URINE LARGE /HPF; RBC,URINE 25-50 /HPF; WBC,URINE TNTC /HPF
[2020-03-30] MEDS ORDERED: VANCOMYCIN 1,750 MG/NS 500 ML IVPB IV NR ×2 (12:00)
[2020-03-30] MEDS ORDERED: MAGNESIUM 1 GM/100 ML IVPB 100 ML IV ONE (12:45)
[2020-03-30] MEDS ORDERED: KCL 10 MEQ TAB (MICRO K) PO ONE (12:45)
--- NOTE | 2020-03-30 12:52 | NUR ---
critical lactic acid repeat of 2.12. lower than previous drawl
[2020-03-30] MEDS: POTASSIUM CL 10MEQ/50ML IVPB 50 ML IV SCH ×4 (12:53→15:36)
--- NOTE | 2020-03-30 13:49 | Occ Therapy Progress Note ---
Therapy Progress Note OT order received. Physical therapy acknowledged OT order and did a gross UE exam. OT to begin treatment 03/31/20. MERCY ARGUETA PT Mar 30, 2020 13:49
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
[2020-03-30 16:33] VITALS: BP 107/68
[2020-03-30] MEDS: PIPERACILLIN/TAZO 4.5 GM/NS 100 ML IV SCH ×2 (17:21)
[2020-03-30] MEDS: ALPRAZolam 1 MG (XANAX) TAB PO SCH (19:52)
[2020-03-30 20:16] VITALS: BP 110/71
[2020-03-30] MEDS: VANCOMYCIN 1250 MG/NS 250 ML IVPB IV SCH ×2 (23:37)
[2020-03-31] VITALS (10 sets, daily range): BP systolic 95–153; BP diastolic 57–97
[2020-03-31] MEDS: PIPERACILLIN/TAZO 4.5 GM/NS 100 ML IV SCH ×6 (01:13→17:01)
[2020-03-31] MEDS: KCL 20 MEQ TAB (K-DUR) PO SCH (05:43)
[2020-03-31] MEDS: LEVOTHYROXINE 50 MCG (LEVOTHROID) TAB PO SCH (05:43)
[2020-03-31] MEDS: KCL 10 MEQ TAB (MICRO K) PO SCH (05:43)
[2020-03-31] MEDS: CATHETER FLUSH 10 ML SYR IV SCH (05:43)
[2020-03-31 07:03] LABS: BASOPHILS # (AUTO) 0.1 10^3/uL (0.0-0.1); BASOPHILS % (AUTO) 1 % (0-10); EOSINOPHILS # (AUTO) 0.3 10^3/uL (0.0-0.3); EOSINOPHILS % (AUTO) 3 % (0-10); HEMATOCRIT 28 % (40-54); HEMOGLOBIN 9.1 G/DL (13.3-17.7); LYMPHOCYTES # (AUTO) 1.3 X 10^3 (1.0-4.0); LYMPHOCYTES % (AUTO) 12 % (12-44); MEAN CORPUSCULAR HEMOGLOBIN 27 PG (25-34); MEAN CORPUSCULAR HGB CONC 32 G/DL (32-36); MEAN CORPUSCULAR VOLUME 85 FL (80-99); MEAN PLATELET VOLUME 11.2 FL (7.4-10.4); MONOCYTES # (AUTO) 1.4 X 10^3 (0.0-1.0); MONOCYTES % (AUTO) 12 % (0-12); NEUTROPHILS # (AUTO) 8.3 X 10^3 (1.8-7.8); NEUTROPHILS % (AUTO) 73 % (42-75); PLATELET COUNT 515 10^3/uL (130-400); RED CELL DISTRIBUTION WIDTH 15.7 % (10.0-14.5); WHITE BLOOD COUNT 11.5 10^3/uL (4.3-11.0)
[2020-03-31 07:25] LABS: ALBUMIN 3.1 GM/DL (3.2-4.5)
[2020-03-31 07:26] LABS: POTASSIUM 3.8 MMOL/L (3.6-5.0)
[2020-03-31 07:27] LABS: CALCIUM 8.2 MG/DL (8.5-10.1)
[2020-03-31 07:28] LABS: TOTAL PROTEIN 5.3 GM/DL (6.4-8.2)
[2020-03-31 07:30] LABS: BILIRUBIN,TOTAL 0.6 MG/DL (0.1-1.0)
[2020-03-31 07:32] LABS: CREATININE SERUM 1.23 MG/DL (0.60-1.30)
[2020-03-31] MEDS: NS IV 1000 ML 1,000 ML IV SCH ×2 (08:12→20:31)
[2020-03-31] MEDS: SENNA W/DOCUSATE (SENOKOT S) TABLET PO SCH ×2 (08:13→20:05)
[2020-03-31] MEDS: lisINopril 10 MG (PRINIVIL) TABLET PO SCH (08:13)
[2020-03-31] MEDS: APIXABAN 5 MG (ELIQUIS) TABLET PO SCH ×2 (08:13→20:05)
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
[2020-03-31] MEDS ORDERED: guaiFENesin/CODEINE (ROBITUSSIN AC) 10ML UDC PO PRN (12:15)
[2020-03-31] MEDS: VANCOMYCIN 1250 MG/NS 250 ML IVPB IV SCH ×2 (12:26)
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
[2020-03-31] MEDS: ACETAMINOPHEN 500 MG TAB (TYLENOL) PO PRN (15:52)
--- NOTE | 2020-03-31 17:38 | NUR ---
ICU reported to 4th floor staff that patients HR is in the 160s this RN checked patients vitals which are currently BP106/[address] Wilder notifed ordered cardizem 10mg IV now and recheck vitals, suspects patient may be in Afib. Telemety Tech stated patient is currently in NSR
--- NOTE | 2020-03-31 18:20 | NUR ---
Website Project Manager here at this time, gave diltiazem. BP currently 107/[address] Wilder called and did not answer. stated he is busy to give him a moment. patient now complaining of a headache and chest pain
[2020-03-31] MEDS ORDERED: dilTIAZem DRIP PRE-MIX 125 ML IV ONE (18:33)
--- NOTE | 2020-03-31 18:34 | NUR ---
Transferred to ICU gave bedside report to Ratna CARO
--- NOTE | 2020-03-31 18:35 | NUR ---
Report received at bedside from GORDO Lemus from 4th floor. Pt HR 150s on arrival to ICU room. BP within normal limits at this time. Pt currently confused and rambling about the possibility of his son being . Will continue to closely monitor and awaiting orders from Cardiology at this time.
[2020-03-31] MEDS ORDERED: ADENOSINE 6 MG/2 ML (ADENOCARD) VIAL IV ONE ×4 (18:45→19:07)
--- NOTE | 2020-03-31 18:45 | NUR ---
Dr. Wilder notified of pt's transfer to ICU. EKG obtained and presented to physician. Orders received to give 6mg Adenosine IV push with continuous EKG tracing and 12mg Adenosine IV push with continuous EKG tracing. Results given to Physician during this time post orders. See eMAR for details on administration times. EKG tracings place in chart. New orders received to place pt on cardizem and Amiodarone gtts. VSS post medication administration. Report given to shift supervisor rn RN who will assume pt care at this time.
[2020-03-31] MEDS ORDERED: WATER (STERILE) FOR INJECTION 10 ML ONE (19:30)
[2020-03-31] MEDS ORDERED: cefTRIAXone 1,000 MG IV (ROCEPHIN) VIAL ONE (19:30)
[2020-03-31] MEDS: cefTRIAXone FOR IV USE 1,000 MG in WATER (STERILE) FOR INJECTION 10 ML IV SCH (19:37)
[2020-03-31] MEDS ORDERED: AMIODARONE 450 MG/9 ML (CORDARONE) VIAL IV ONE (19:39)
[2020-03-31] MEDS ORDERED: D5W IV SOLUTION (EXCEL) 250 ML IV ONE (19:47)
[2020-03-31] MEDS: ALPRAZolam 1 MG (XANAX) TAB PO SCH (20:05)
[2020-03-31] MEDS: dilTIAZem DRIP PRE-MIX 125 ML IV SCH (20:27)
[2020-03-31] MEDS: AMIODARONE INJECTION 450 MG in D5W IV SOLUTION (EXCEL) 250 ML IV SCH (20:29)
[2020-04-01] VITALS (22 sets, daily range): BP systolic 92–125; BP diastolic 59–91
[2020-04-01] MEDS: ALPRAZolam 0.5 MG (XANAX) TAB PO PRN (01:06)
[2020-04-01 03:47] LABS: BASOPHILS # (AUTO) 0.1 10^3/uL (0.0-0.1); BASOPHILS % (AUTO) 1 % (0-10); EOSINOPHILS # (AUTO) 0.4 10^3/uL (0.0-0.3); EOSINOPHILS % (AUTO) 5 % (0-10); HEMATOCRIT 31 % (40-54); HEMOGLOBIN 10.2 G/DL (13.3-17.7); LYMPHOCYTES # (AUTO) 0.8 X 10^3 (1.0-4.0); LYMPHOCYTES % (AUTO) 9 % (12-44); MEAN CORPUSCULAR HEMOGLOBIN 27 PG (25-34); MEAN CORPUSCULAR HGB CONC 33 G/DL (32-36); MEAN CORPUSCULAR VOLUME 84 FL (80-99); MEAN PLATELET VOLUME 10.4 FL (7.4-10.4); MONOCYTES % (AUTO) 11 % (0-12); NEUTROPHILS # (AUTO) 6.8 X 10^3 (1.8-7.8); NEUTROPHILS % (AUTO) 74 % (42-75); PLATELET COUNT 525 10^3/uL (130-400); WHITE BLOOD COUNT 9.2 10^3/uL (4.3-11.0)
[2020-04-01] MEDS: AMIODARONE INJECTION 450 MG in D5W IV SOLUTION (EXCEL) 250 ML IV SCH (03:55)
[2020-04-01 04:06] LABS: ALBUMIN 3.3 GM/DL (3.2-4.5); CHLORIDE 110 MMOL/L (98-107); SODIUM 139 MMOL/L (135-145)
[2020-04-01 04:07] LABS: CALCIUM 8.7 MG/DL (8.5-10.1)
[2020-04-01 04:08] LABS: GLUCOSE 114 MG/DL (70-105)
[2020-04-01 04:09] LABS: TOTAL PROTEIN 5.8 GM/DL (6.4-8.2)
[2020-04-01 04:10] LABS: CARBON DIOXIDE 19 MMOL/L (21-32)
[2020-04-01 04:11] LABS: BILIRUBIN,TOTAL 0.4 MG/DL (0.1-1.0)
[2020-04-01 04:12] LABS: ALKALINE PHOSPHATASE 83 U/L (40-136); GFR ESTIMATED > 60
[2020-04-01 04:13] LABS: BUN/CREATININE RATIO 9
[2020-04-01 04:15] LABS: ALANINE AMINOTRANSFERASE 20 U/L (0-55); MAGNESIUM 2.1 MG/DL (1.6-2.4)
[2020-04-01] MEDS: POTASSIUM CL 10MEQ/50ML IVPB 50 ML IV SCH (04:26)
[2020-04-01] MEDS: KCL 20 MEQ TAB (K-DUR) PO SCH ×2 (04:26→06:26)
[2020-04-01] MEDS: MAGNESIUM 1 GM/100 ML IVPB 100 ML IV SCH (04:26)
--- NOTE | 2020-04-01 04:33 | NUR ---
PATIENT CONTINUES TO BE UNCOOPERATIVE. EXPLAINED TO PATIENT MULTIPLE TIMES THROUGHOUT THE NIGHT THAT HE IS TOO UNSTEADY ON HIS FEET WITH ALL OF THE IV TUBING AND CORDS TO GET UP TO USE THE URINAL INDEPENDENTLY. FURTHER EXPLAINED TO PATIENT THAT WE ARE HERE FOR HIS SAFETY AND SIMPLY DO NOT WANT HIM TO FALL. PATIENT CONTINUES TO STATE "MY KNEES DON'T WORK, BUT I'M NOT GOING TO FALL. ONCE I STAND FOR AWHILE, I AM FINE". THIS WAS HIS STATEMENT IMMEDIATELY AFTER NEARLY FALLING. WILL CONTINUE TO ATTEMPT TO REINFORCE.
[2020-04-01] MEDS: dilTIAZem DRIP PRE-MIX 125 ML IV SCH ×2 (06:21→17:27)
[2020-04-01] MEDS: LEVOTHYROXINE 50 MCG (LEVOTHROID) TAB PO SCH (06:26)
[2020-04-01] MEDS: KCL 10 MEQ TAB (MICRO K) PO SCH (06:26)
--- NOTE | 2020-04-01 06:52 | Pulmonary Consultation ---
History of Present Illness History of Present Illness Date of Admission Allergies and Home Medications Allergies Uncoded Allergies: IV contrast (Allergy, Unknown, 03/11/20) Home Medications Alprazolam 1 Mg Tablet, 0.5 MG PO DAILY PRN for ANXIETY, (Reported) Alprazolam 1 Mg Tablet, 1 MG PO HS PRN for ANXIETY, (Reported) Amiodarone HCl 200 Mg Tablet, 400 MG PO BID, (Reported) PT PICKED UP ON 03-01-2020 & IS ON THE FIRST SET OF DIRECTIONS: 2 TABS TWICE DAILY X 14 DAYS THEN 1 TAB THREE TIMES DAILY X 30 DAYS THEN 2 TABS DAILY X 60 DAYS Apixaban 5 Mg Tablet, 5 MG PO BID, (Reported) Atorvastatin Calcium 40 Mg Tablet, 40 MG PO DAILY, (Reported) Dofetilide 125 Mcg Capsule, 125 MCG PO BID, (Reported) Levothyroxine Sodium 50 Mcg Tablet, 50 MCG PO DAILY, (Reported) Lisinopril 10 Mg Tablet, 10 MG PO DAILY, (Reported) Oxycodone HCl 10 Mg Tablet, 10 MG PO Q6H PRN for PAIN-SEVERE (8-10), (Reported) Past Mocyjif-Kdpzmr-Wcpxhv Hx Past Med/Social Hx: Reviewed Nursing Past Med/Soc Hx, Reviewed and Corrections made Patient Social History Alcohol Use: Denies Use Recreational Drug Use: No (DENIES ETOH OR TOBACCO USE) Smoking Status: Former Smoker Type Used: Cigarettes Former Smoker, Quit: Jul 12, 1985 2nd Hand Smoke Exposure: No Recent Foreign Travel: No Contact w/Someone Who Travel: No Recent Infectious Disease Expo: No Recent Hopitalizations: Yes ([facility]) Physical Abuse: No Sexual Abuse: No Immunizations Up To Date Tetanus Booster (TDap): Unknown Date of Pneumonia Vaccine: Jul 21, 2018 Date of Influenza Vaccine: Jul 21, 2018 Seasonal Allergies Seasonal Allergies: No Past Medical History Surgeries: Yes (Cardiac Ablation ) Appendectomy Respiratory: Yes Pulmonary Embolism Cardiac: Yes Atrial Fibrillation, High Cholesterol, Hypertension, Irregular Heartbeat Neurological: Yes Headaches /Migraines Reproductive Disorders: No Sexually Transmitted Disease: Yes (Hep C: treated) HIV/AIDS: No Genitourinary: No Prostate Problems Gastrointestinal: Yes (COLON CA WITH SURGICAL INTERVENTION) Diverticulosis, Hemorrhoids Musculoskeletal: Yes Arthritis, Chronic Back Pain Endocrine: Yes Hypothyroidsim HEENT: No Loss of Vision: Denies Hearing Impairment: Denies Cancer: Yes Colon Did You Recieve Any Treatments: Yes What Type of Treatment Did You: Surgical Intervention Psychosocial: Yes Anxiety, Depression Integumentary: No Blood Disorders: No Adverse Reaction/Blood Tranf: No Family Medical History Heart Disease, Hypertension Sepsis Event Evaluation Height, Weight, BMI Height: 6'0" Weight: 224lbs. 0oz. 101.585608hl; 26.51 BMI Method:Stated Exam Exam Vital Signs Date Time Temp Pulse Resp B/P (MAP) Pulse Ox O2 Delivery O2 Flow Rate FiO2 04/01/20 06:00 126 15 103/86 (92) 95 Room Air 04/01/20 05:00 130 10 102/80 (87) 94 Room Air 04/01/20 04:00 117 10 109/80 (90) 97 Room Air 04/01/20 04:00 37.1 04/01/20 04:00 96 Room Air 04/01/20 03:00 115 14 110/73 (85) 95 Room Air 04/01/20 02:00 114 14 112/87 (95) 98 Room Air 04/01/20 01:00 111 04/01/20 01:00 112 13 119/86 (97) 95 Room Air 04/01/20 00:00 37.2 04/01/20 00:00 96 Room Air 04/01/20 00:00 110 19 116/75 (89) 94 Room Air 03/31/20 23:00 113 22 107/70 (82) 97 Room Air 03/31/20 22:00 112 15 113/82 (92) 96 Room Air 03/31/20 21:00 116 15 110/65 (80) 99 Room Air 03/31/20 20:00 109 14 153/97 (115) 97 Room Air 03/31/20 20:00 97 Room Air 03/31/20 19:00 111 03/31/20 19:00 111 14 108/66 (80) 97 Room Air 03/31/20 16:00 37.0 84 16 106/63 (77) 95 Room Air 03/31/20 12:32 83 03/31/20 11:44 36.8 83 20 117/74 (88) 96 Room Air 03/31/20 09:00 Room Air 03/31/20 07:49 37.8 85 20 123/77 (92) 96 Room Air 03/31/20 07:00 93 I & O 04/01/20 07:00 Intake Total 550 ml Output Total 900 ml Balance -350 ml Height & Weight Height: 6'0" Weight: 224lbs. 0oz. 101.473333es; 26.51 BMI Method:Stated General Appearance: No Apparent Distress, WD/WN, Chronically ill HEENT: PERRL/EOMI, Normal ENT Inspection, Pharynx Normal, Moist Mucous Membranes Neck: Full Range of Motion, Normal Inspection, Non Tender Respiratory: Chest Non Tender, Lungs Clear, Normal Breath Sounds, No Accessory Muscle Use, No Respiratory Distress Cardiovascular: Regular Rate, Rhythm, No Edema, No Gallop, No JVD, No Murmur, Normal Peripheral Pulses Capillary Refill: Less Than 3 Seconds Extremity: Normal Capillary Refill, Normal Inspection, Normal Range of Motion, Non Tender, No Calf Tenderness, No Pedal Edema Neurologic/Psychiatric: Alert, Oriented x3, No Motor/Sensory Deficits, Normal Mood/Affect, Motor Weakness (all extremities 4/5 strength) Skin: Normal Color, Warm/Dry Lymphatic: No Adenopathy Results Lab Laboratory Tests 03/31/20 05:40 04/01/20 03:38 SHAD DUQUE DO Apr 01, 2020 06:52
[2020-04-01] MEDS: APIXABAN 5 MG (ELIQUIS) TABLET PO SCH ×2 (08:04→21:20)
[2020-04-01] MEDS: lisINopril 10 MG (PRINIVIL) TABLET PO SCH (08:04)
[2020-04-01] MEDS: SENNA W/DOCUSATE (SENOKOT S) TABLET PO SCH ×2 (08:04→21:20)
[2020-04-01] MEDS: NS IV 1000 ML 1,000 ML IV SCH (08:05)
--- NOTE | 2020-04-01 08:06 | Diagnostic Imaging Report ---
HISTORY: Dyspnea COMPARISON: 03/30/2020 TECHNIQUE: Frontal view of the chest. FINDINGS: No focal consolidation is seen. Lung volumes appear normal. The cardiac silhouette is normal in size. There is no pleural effusion or pneumothorax. IMPRESSION: 1. No acute pulmonary abnormality is seen. Dictated by: Dictated on workstation # [id number]
--- NOTE | 2020-04-01 08:19 | Physical Therapy Progress Note ---
Therapy Progress Note Patient transferred to ICU. PT will require new orders to continue with therapy. PT will consult with RN on this date. RAMIRO HOUSTON PT Apr 01, 2020 08:19
--- NOTE | 2020-04-01 09:06 | Occ Therapy Progress Note ---
Therapy Progress Note Pt. transferred to ICU due to change in medical status. Will need new OT orders when medically ready for OT treatment. 0905 DEB DURAN OT Apr 01, 2020 09:06
--- NOTE | 2020-04-01 10:21 | Physical Therapy Evaluation ---
PT Evaluation-General Medical Diagnosis Admission Date Mar 30, 2020 at 11:30 Medical Diagnosis: UTI/SEPSIS Onset Date: Mar 29, 2020 Therapy Diagnosis Therapy Diagnosis: generalized weakness/debility Height/Weight Height (Feet): 6 Height (Inches): 0 Weight (Pounds): 224 Weight (Ounces): 0 Precautions Precautions/Isolations: Fall Prevention, Standard Precautions Weight Bear Status Right Lower Extremity: Right Weight Bearing/Tolerated Left Lower Extremity: Left Weight Bearing/Tolerated Referral Physician: Davon Reason for Referral: Evaluation/Treatment Medical History Pertinent Medical History: Atrial Fib, Arthritis, Diverticulitis Current History transfer to ICU Reviewed History: Yes Prior Prior Level of Function SCALE: Activities may be completed with or without assistive devices. 5-Bdvmymrqss-zglfgle completes the activity by him/herself with no assistance from a helper. 5-Set-up or Clean-up Assistance-helper sets up or cleans up; patient completes activity. [place] assists only prior to or following the activity. 4-Supervision or Touching Assistance-helper provides verbal cues and/or touching/steadying and/or contact guard assistance as patient completes activity. Assistance may be provided throughout the activity or intermittently. 3-Partial/Moderate Assistance-helper does LESS THAN HALF the effort. [place] lifts, holds or supports trunk or limbs, but provides less than half the effort. 2-Substantial/Maximal Assistance-helper does MORE THAN HALF the effort. [place] lifts or holds trunk or limbs and provides more than half the effort. 2-Mrydyfwfz-opmmht does ALL the effort. Patient does none of the effort to complete the activity. Or, the assistance of 2 or more helpers is required for the patient to complete the activity. If activity was not attempted, code reason: 7-Patient Refused. 9-Not Applicable-not attempted and the patient did not perform the activity before the current illness, exacerbation or injury. 10-Not Attempted due to Environmental Limitations-(lack of equipment, weather restraints, etc.). 88-Not Attempted due to Medical Conditions or Safety Concerns. Bed Mobility: 6 Transfers (B,C,W/C): 6 Gait: 6 Indoor Mobility (Ambulation): Independent Prior Devices Use: None PT Evaluation-Current Subjective Patient is very agitated and reluctantly agrees to PT. Adamantly refuses FWW use and gait belt. Pain Numeric Pain Scale: 0-No Pain Location: No Pain Reported Objective Patient Orientation: Normal For Age Attachments: IV ROM/Strength ROM Lower Extremities bilateral LE WFL Strength Lower Extremities 4+/5 grossly bilateral LE Integumentary/Posture Integumentary refer to nursing notes Bowel Incontinence: No Bladder Incontinence: No Posture WFL Neuromuscular (Tone, Coordination, Reflexes) grossly intact Sensory Vision: Functional Hearing: Functional Sensation Right Lower Extremit: Impaired Sensation Left Lower Extremity: Impaired Transfers Roll Left to Right (QC): 6 Lying to Sitting/Side of Bed(Q: 6 Sit to Stand (QC): 6 Chair/Gdt-du-Qsrtj Xfer(QC): 6 Gait Does the Patient Walk?: Yes (refused to perform) Gait Assistive Device: None Balance Sitting Static: Normal Sitting Dynamic: Normal Standing Static: Fair Standing Dynamic: Fair Assessment/Needs 59 y.o. male, is very agitated and ceased treatment. Patient would benefit from skilled PT to address functional strength and mobility. Patient appears to self limit and currently has a sitter due to confusion. Rehab Potential: Fair Post Rehab Potential-Barriers: compliance PT Fci Goals Fci Goals PT Fci Goals Time Frame: Apr 05, 2020 Roll Left & Right (QC): 6 Sit to Lying (QC): 6 Lying-Sitting on Side/Bed(QC): 6 Sit to Stand (QC): 6 Chair/Ugc-dr-Mncou Xfer(QC): 6 Toilet Transfer (QC): 6 Car Transfer (QC): 6 Walk 10 feet (QC): 6 Walk 50ft with 2 Turns (QC): 6 Walk 150 ft (QC): 6 Walking 10ft on Uneven Surface: 6 1 Step (curb) (QC): 6 4 Steps (QC): 6 Picking up an Object (QC): 5 PT Plan Treatment/Plan Treatment Plan: Continue Plan of Care Treatment Plan: Bed Mobility, Education, Functional Activity Vanessa, Functional Strength, Group Therapy, Gait, Safety, Therapeutic Exercise Treatment Duration: Apr 05, 2020 Frequency: 6 times per week Estimated Hrs Per Day: .25 hour per day Patient and/or Family Agrees t: Yes Time/GCodes Time In: 918 Time Out: 930 Total Billed Treatment Time: 12 Total Billed Treatment 1 visit EVModC 12 min RAMIRO HOUSTON PT Apr 01, 2020 10:21
[2020-04-01] MEDS ORDERED: TROUGH ORDER-PHARMACY XX NR (11:00)
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
--- NOTE | 2020-04-01 14:39 | Occupational Therapy Eval ---
OT Evaluation-General/PLF Medical Diagnosis Admission Date Mar 30, 2020 at 11:30 Medical Diagnosis: UTI/SEPSIS Onset Date: Mar 29, 2020 Therapy Diagnosis Therapy Diagnosis: Weakness Height/Weight Height (Feet): 6 Height (Inches): 0 Weight (Pounds): 224 Weight (Ounces): 0 Precautions Precautions/Isolations: Fall Prevention, Standard Precautions Weight Bear Status Weight Bearing Restriction: Weight Bearing/Tolerated Referral Physician: Davon Referral Reason: Activity Tolerance, Self Care, Evaluation/Treatment, Strengthening/ROM Medical History Pertinent Medical History: Atrial Fib, Arthritis, Diverticulitis, HTN Additional Medical History Pulmonary embolism, diverticulosis Current History Multiple recent hospitalizations. Currently diagnosed with encephalopathy, sepsis, and ARF. Reviewed History: Yes Social History Current Living Status: Alone ADL-Prior Level of Function SCALE: Activities may be completed with or without assistive devices. 3-Aadwwslvxz-awrhftr completes the activity by him/herself with no assistance from a helper. 5-Set-up or Clean-up Assistance-helper sets up or cleans up; patient completes activity. [place] assists only prior to or following the activity. 4-Supervision or Touching Assistance-helper provides verbal cues and/or touching/steadying and/or contact guard assistance as patient completes activity. Assistance may be provided throughout the activity or intermittently. 3-Partial/Moderate Assistance-helper does LESS THAN HALF the effort. [place] lifts, holds or supports trunk or limbs, but provides less than half the effort. 2-Substantial/Maximal Assistance-helper does MORE THAN HALF the effort. [place] lifts or holds trunk or limbs and provides more than half the effort. 6-Prcfibchx-xjhrux does ALL the effort. Patient does none of the effort to complete the activity. Or, the assistance of 2 or more helpers is required for the patient to complete the activity. If activity was not attempted, code reason: 7-Patient Refused. 9-Not Applicable-not attempted and the patient did not perform the activity before the current illness, exacerbation or injury. 10-Not Attempted due to Environmental Limitations-(lack of equipment, weather restraints, etc.). 88-Not Attempted due to Medical Conditions or Safety Concerns. ADL PLOF Comments Pt. states that he was independent, that he drives, and lives in [facility]. Self Care: Unknown Functional Cognition: Unknown Drive Self: Yes OT Current Status Subjective Pt. agitated throughout treatment. Mental Status/Objective Patient Orientation: Confused Attachments: IV, Telemetry Current Upper Extremity ROM Right- WFL Left- Limited at shoulder level to approximately 90 degrees. ADL-Treatment Pt. in bed when OT entered room. Pt. has sitter watching through window due to agitation. Pt. did not attempt to look at or talk to therapist at first. OT persistent and so pt. began to decrease guarded behavior. Pt. is confused about current situation. Pt. declines treatment at first, but states, "I will if you want me to." Pt. transfers supine-sit with independence. OT observes pt. lift his legs using his hands, and he states that he is really weak. OT brushes pt's hair while student nicola for him. This encouraged longer sit on side of bed. Pt. reports many medical issues, and is difficult to follow. Pt. inconsistent with reporting his physical issues. OT asks pt. to extend legs, one at a time, while seated on side of bed. Pt. uses his hands to assist, and then performs, "tonic" movement in ankle when OT attempts to have him flex/extend ankle. Pt. resists ankle PROM, but is not agitated while doing so. Pt. reports that he is so weak and that he can't walk, but then does stand very quickly at side of bed, very impulsively. OT attempted quickly to hold pt., as not sure if he was unstable. Pt. stood at side of bed with no LOB and reports that he just needed to stand. Pt. sits back on side and when OT encourages pt. to lay down to rest, pt, asks OT to stay longer. OT does and pt. agrees to lay down. Pt. transfers self back into bed with independence. All needs met and sitter present at end of session. Education OT Patient Education: Correct positioning, Progress toward Goal/Update tx plan, Purpose of tx/functional activities, Reviewed precautions, Rehab process, Transfer techniques Teaching Recipient: Patient Teaching Methods: Demonstration, Discussion Response to Teaching: Reinforcement Needed OT Short Term Goals Short Term Goals Time Frame: Apr 08, 2020 Eatin Oral hygiene: 4 Toileting hygiene: 3 Shower/bathe self: 3 Upper body dressin Lower body dressin Putting on/taking off footwear: 3 OT Shelter Goals Shelter Goals Time Frame: Apr 15, 2020 Eating (QC): 6 Oral Hygiene (QC): 6 Toileting Hygiene (QC): 6 Shower/Bathe Self (QC): 4 Upper Body Dressing (QC): 5 Lower Body Dressing (QC): 4 On/Off Footwear (QC): 4 Additional Goals: 1-Demonstrate ADL Tasks, 2-Verbalize Understanding, 3- ImproveStrength/Vanessa 1=Demonstrate adherence to instructed precautions during ADL tasks. 2=Patient will verbalize/demonstrate understanding of assistive devices/modifications for ADL. 3=Patient will improve strength/tolerance for activity to enable patient to perform ADL's. OT Education/Plan Problem List/Assessment Assessment: Decreased Activ Tolerance, Decreased Safety Aware, Dependent Transfers, Impaired Bed Mobility, Impaired Cognition, Impaired I ADL's, Impaired Self-Care Skills, Restricted Funct UE ROM Discharge Recommendations Plan/Recommendations: Continue POC Therapy Discharge Recommendati: Post Acute OT Barriers to Progress Cognition limits pt at this time. Treatment Plan/Plan of Care Treatment,Training & Education: Yes Patient would benefit from OT for education, treatment and training to promote independence in ADL's, mobility, safety and/or upper extremity function for ADL's. Plan of Care: ADL Retraining, Functional Mobility, UE Funct Exercise/Act Treatment Duration: Apr 15, 2020 Frequency: 5 times per week Estimated Hrs Per Day: .25 hour per day Agreement: Yes Rehab Potential: Fair Time/GCodes Start Time: 13:40 Stop Time: 14:07 Total Time Billed (hr/min): 27 Billed Treatment Time 1, EVH x 10minutes, FA [id number] DEB DURAN OT Apr 01, 2020 14:39
--- NOTE | 2020-04-01 14:48 | NUR ---
IRF Met with patient as this television script writer has been in consistent communication with him prior to admission, for possibility of admitting to ARU. Patient states he wishes to transfer to , due to the fact that is where is physician is located. When asked if he has any children, patient stated he did not know if one of them were alive or not. Patient states he does not know if he dreamt his son was killed or if it was reality. When asked if the patient has any other relatives/friends he would like to list as a contact, the patient handed this television script writer his phone and stated, "Talk to Carmine, but not in here, out in the hallway." Carmine states she is not related to patient but knows him very well. Carmine does not wish to be his emergency contact; however, does wish to be contacted in regard to discharge planning as she is his landlord. Carmine, adoptive mother of patient's son, requests that patient's son, Onur not be contacted in any capacity. This television script writer ensured that Onur's contact information is not listed; therefore, will not be utilized. Carmine did confirm that patient's son, Carmine' adoptive son, is in fact alive. This was questioned as patient has reported to physician that his son was recently killed. Upon completion of conversation with Carmine, patient notified that Carmine is willing to be communicated with, if he agrees. Patient states he is okay with that. Due to current status, patient no longer meets criteria for admission to ARU. Additionally, insurance has since denied admission. Dr. Mays and SW notified of all information stated in this note.
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
[2020-04-01] MEDS: cefTRIAXone FOR IV USE 1,000 MG in WATER (STERILE) FOR INJECTION 10 ML IV SCH (17:29)
[2020-04-01] MEDS: ALPRAZolam 1 MG (XANAX) TAB PO SCH (21:21)
--- NOTE | 2020-04-01 21:25 | NUR ---
INFORMED DR. PATTERSON THAT PATIENT'S CURRENT HR IS 130'S A-FLUTTER WITH BP-107/76, AMIO IS FINISHED AND CARDIZEM IS AT 15 MG/HR AND THAT PATIENT IS RESTING COMFORTABLY AT THIS TIME. RECEIVED ORDER FOR AMIODARONE 200MG PO BID.
[2020-04-01] MEDS: AMIODARONE 200 MG (CORDARONE) TAB PO SCH (21:59)
[2020-04-02] VITALS (21 sets, daily range): BP systolic 96–129; BP diastolic 61–101
[2020-04-02 03:32] LABS: CHLORIDE 111 MMOL/L (98-107); POTASSIUM 4.3 MMOL/L (3.6-5.0); SODIUM 141 MMOL/L (135-145)
[2020-04-02 03:33] LABS: CALCIUM 9.1 MG/DL (8.5-10.1); GLUCOSE 97 MG/DL (70-105)
[2020-04-02 03:35] LABS: CARBON DIOXIDE 20 MMOL/L (21-32)
[2020-04-02 03:37] LABS: CREATININE SERUM 1.12 MG/DL (0.60-1.30); GFR ESTIMATED > 60
[2020-04-02 03:38] LABS: BUN/CREATININE RATIO 6
[2020-04-02 03:40] LABS: MAGNESIUM 2.1 MG/DL (1.6-2.4)
[2020-04-02] MEDS: NS IV 1000 ML 1,000 ML IV SCH ×2 (03:44→16:12)
[2020-04-02] MEDS: dilTIAZem DRIP PRE-MIX 125 ML IV SCH (03:44)
[2020-04-02] MEDS: ALPRAZolam 0.5 MG (XANAX) TAB PO PRN (03:48)
[2020-04-02] MEDS: MAGNESIUM 1 GM/100 ML IVPB 100 ML IV SCH (03:56)
[2020-04-02] MEDS: POTASSIUM CL 10MEQ/50ML IVPB 50 ML IV SCH (03:56)
[2020-04-02] MEDS: KCL 20 MEQ TAB (K-DUR) PO SCH ×2 (03:56→09:27)
--- NOTE | 2020-04-02 04:49 | Pulmonary Progress Note ---
Subjective Time Seen by a Provider: 04:47 Sepsis Event Evaluation Height, Weight, BMI Height: 6'0" Weight: 224lbs. 0oz. 101.623876ei; 26.51 BMI Method:Stated Focused Exam Lactate Level 03/30/20 10:20: Lactic Acid Level 2.22*H 03/30/20 12:25: Lactic Acid Level 2.12*H 03/30/20 15:10: Lactic Acid Level 1.47 Exam Exam Vital Signs Date Time Temp Pulse Resp B/P (MAP) Pulse Ox O2 Delivery O2 Flow Rate FiO2 04/02/20 04:00 37.2 04/02/20 00:00 94 Room Air 04/01/20 23:21 37.8 04/01/20 20:00 93 Room Air 04/01/20 19:49 37.3 04/01/20 18:00 130 14 92/59 (70) 95 Room Air 04/01/20 18:00 130 14 92/59 (70) 95 Room Air 04/01/20 17:00 130 16 110/74 (86) 97 Room Air 04/01/20 16:00 130 19 118/91 (100) 96 Room Air 04/01/20 16:00 96 Room Air 04/01/20 15:39 37.4 04/01/20 15:00 129 23 123/84 (97) 93 Room Air 04/01/20 14:00 133 37 116/84 (95) 98 Room Air 04/01/20 13:00 129 15 125/88 (100) 97 Room Air 04/01/20 12:50 130 04/01/20 12:00 96 Room Air 04/01/20 12:00 36.8 04/01/20 12:00 114 12 109/81 (90) 94 Room Air 04/01/20 11:59 37.4 04/01/20 11:00 116 11 119/87 (98) 97 Room Air 04/01/20 10:00 116 17 96 Room Air 04/01/20 09:00 112 14 95 Room Air 04/01/20 08:00 36.9 04/01/20 08:00 114 15 102/77 (85) 92 Room Air 04/01/20 08:00 96 Room Air 04/01/20 07:00 113 13 110/78 (89) 95 Room Air 04/01/20 06:38 130 7/13/20 06:00 126 15 103/86 (92) 95 Room Air 04/01/20 05:00 130 10 102/80 (87) 94 Room Air I & O 04/02/20 07:00 Intake Total 725 ml Output Total 1750 ml Balance -1025 ml Height & Weight Height: 6'0" Weight: 224lbs. 0oz. 101.591819wk; 26.51 BMI Method:Stated General Appearance: No Apparent Distress, WD/WN HEENT: PERRL/EOMI; No Pale Conjunctivae (L), No Pale Conjunctivae (R), No Scleral Icterus (L), No Scleral Icterus (R) Neck: Supple, Tender Lateral (tenderness on soft area of swelling on lateral mid neck, attributes it to intubation from prior hospitalization) Respiratory: Chest Non Tender, Lungs Clear, Normal Breath Sounds, No Accessory Muscle Use, No Respiratory Distress Cardiovascular: No Edema, No Gallop, No JVD, No Murmur, Normal Peripheral Pulses, Irregularly Irregular, Tachycardia Capillary Refill: Less Than 3 Seconds Extremity: Normal Capillary Refill, Normal Inspection, Non Tender, No Calf Tenderness, No Pedal Edema Neurologic/Psychiatric: Alert, Oriented x3, No Motor/Sensory Deficits, Normal Mood/Affect, Disoriented (confused about which floor he is on) Skin: Normal Color, Warm/Dry Lymphatic: No Adenopathy Results Lab Laboratory Tests 03/31/20 05:40 04/01/20 03:38 04/02/20 03:00 Assessment/Plan Assessment/Plan AF with RVR -Cardiology is following -Cardizem Anemia -Monitor Confusion with aggression requiring sitter UTI -Currently on SHAD Cabrera DO Apr 02, 2020 04:49
--- NOTE | 2020-04-02 07:43 | Diagnostic Imaging Report ---
INDICATION: Dyspnea. Compared 04/01 FINDINGS: There is suboptimal inspiratory volume crowding the lung markings. This likely accounts for basilar pulmonary opacities having developed suggestive of partial atelectasis, pneumonia developing particularly on the right could not be excluded in the appropriate clinical scenario. No pneumothorax. IMPRESSION: Limited inspiratory volume. There is likely some developing bibasilar partial atelectasis. Dictated by: Dictated on workstation # [id number]
[2020-04-02] MEDS: AMIODARONE 200 MG (CORDARONE) TAB PO SCH ×2 (09:26→20:01)
[2020-04-02] MEDS: APIXABAN 5 MG (ELIQUIS) TABLET PO SCH ×2 (09:26→20:01)
[2020-04-02] MEDS: SENNA W/DOCUSATE (SENOKOT S) TABLET PO SCH ×2 (09:26→20:01)
[2020-04-02] MEDS: KCL 10 MEQ TAB (MICRO K) PO SCH (09:27)
[2020-04-02] MEDS: LEVOTHYROXINE 50 MCG (LEVOTHROID) TAB PO SCH (09:27)
--- NOTE | 2020-04-02 10:29 | Occupational Ther Daily Note ---
OT Current Status-Daily Note Subjective No pain reported. Appearance Pt. sitting on side of bed when OT entered room. Pt. using urinal. With encouragement, pt. agrees to work with OT. Mental Status/Objective Patient Orientation: Confused Attachments: IV, Telemetry ADL-Treatment Therapy Code Descriptions/Definitions Functional [place] Measure: 0=Not Assessed/NA 4=Minimal Assistance 1=Total Assistance 5=Supervision or Setup 2=Maximal Assistance 6=Modified [place] 3=Moderate Assistance 7=Complete IndependenceSCALE: Activities may be completed with or without assistive devices. 5-Fibipoxcxa-ztzqpcb completes the activity by him/herself with no assistance fr om a helper. 5-Set-up or Clean-up Assistance-helper sets up or cleans up; patient completes activity. [place] assists only prior to or following the activity. 4-Supervision or Touching Assistance-helper provides verbal cues and/or touching/steadying and/or contact guard assistance as patient completes activity. Assistance may be provided throughout the activity or intermittently. 3-Partial/Moderate Assistance-helper does LESS THAN HALF the effort. [place] lifts, holds or supports trunk or limbs, but provides less than half the effort. 2-Substantial/Maximal Assistance-helper does MORE THAN HALF the effort. [place] lifts or holds trunk or limbs and provides more than half the effort. 3-Fcctqdcux-aypsji does ALL the effort. Patient does none of the effort to complete the activity. Or, the assistance of 2 or more helpers is required for the patient to complete the activity. If activity was not attempted, code reason: 7-Patient Refused. 9-Not Applicable-not attempted and the patient did not perform the activity before the current illness, exacerbation or injury. 10-Not Attempted due to Environmental Limitations-(lack of equipment, weather restraints, etc.). 88-Not Attempted due to Medical Conditions or Safety Concerns. Shower/Bathe Self (QC): 4 (SBA and increased time.) On/Off Footwear: 6 Toileting Hygiene (QC): 6 (urinal only) Other Treatment Pt. sitting on side of bed using urinal. Hands urinal to OT. Pt. transfers self back to bed with independence. Pt. is encouraged to participate. OT encourages pt. to eat breakfast, as tray is sitting on table untouched. Pt. declines. OT asks pt. questions regarding sleep and pain. Pt. verbalizes that he doesn't hurt but didn't sleep well. OT attempts to engage pt. in UE exercises. Pt. lefts left UE to full range, and then holds in the air. Pt. tells OT, "you can move my legs." OT encourages pt. to participate in LE mobility, as pt. will do little else. Pt. keeps eyes closed through most of treatment and moves LE with no difficulty, but does not engage in full exercises. OT asks pt. if he would like to get cleaned up. Pt. states that he can do "whatever." Pt. stays in supine position but moves around in bed. Pt. is handed warm bath wipes and encouraged to wash all parts. Pt. does this, but is still difficult to follow conversation mcintosh. All needs are met and pt. is in bed with sitter at end of treatment. Education OT Patient Education: Correct positioning, Modified ADL techniques, Progress toward Goal/Update tx plan, Purpose of tx/functional activities, Reviewed precautions, Rehab process, Safety issues, Transfer techniques Teaching Recipient: Patient Teaching Methods: Demonstration, Discussion Response to Teaching: Reinforcement Needed OT Short Term Goals Short Term Goals Time Frame: Apr 08, 2020 Eatin Oral hygiene: 4 Toileting hygiene: 3 Shower/bathe self: 3 Upper body dressin Lower body dressin Putting on/taking off footwear: 3 OT Group Home Goals Group Home Goals Time Frame: Apr 15, 2020 Eating (QC): 6 Oral Hygiene (QC): 6 Toileting Hygiene (QC): 6 Shower/Bathe Self (QC): 4 Upper Body Dressing (QC): 5 Lower Body Dressing (QC): 4 On/Off Footwear (QC): 4 Additional Goals: 1-Demonstrate ADL Tasks, 2-Verbalize Understanding, 3- ImproveStrength/Vanessa 1=Demonstrate adherence to instructed precautions during ADL tasks. 2=Patient will verbalize/demonstrate understanding of assistive devices/modifications for ADL. 3=Patient will improve strength/tolerance for activity to enable patient to perform ADL's. OT Education/Plan Problem List/Assessment Assessment: Decreased Activ Tolerance, Decreased Safety Aware, Impaired Cognition Discharge Recommendations Plan/Recommendations: Continue POC Therapy Discharge Recommendati: 24 Hour Supervision Barriers to Progress Pt. is physically able to take care of self, but requires increased time, freq uent re-direction, and multiple cues to sequence and participate. Treatment Plan/Plan of Care Treatment,Training & Education: Yes Patient would benefit from OT for education, treatment and training to promote independence in ADL's, mobility, safety and/or upper extremity function for ADL's. Plan of Care: ADL Retraining, Functional Mobility, UE Funct Exercise/Act Treatment Duration: Apr 15, 2020 Frequency: 5 times per week Estimated Hrs Per Day: .25 hour per day Agreement: Yes Rehab Potential: Fair Time/GCodes Start Time: 08:40 Stop Time: 08:55 Total Time Billed (hr/min): 15 Billed Treatment Time 1,ADL DEB DURAN OT Apr 02, 2020 10:29
--- NOTE | 2020-04-02 11:01 | Physical Therapy Daily Note ---
PT Daily Note-Current Subjective Patient in bed pre tx, agrees reluctantly to PT, says "whatever". Indicated that he doesn't have any pain when asked. Mental Status Patient Orientation: Person, Unable to Assess (patient communicates very little), Mumbles Transfers SCALE: Activities may be completed with or without assistive devices. 7-Agtjwtuvma-qjphdnm completes the activity by him/herself with no assistance from a helper. 5-Set-up or Clean-up Assistance-helper sets up or cleans up; patient completes activity. Delta assists only prior to or following the activity. 4-Supervision or Touching Assistance-helper provides verbal cues and/or touching/steadying and/or contact guard assistance as patient completes activity. Assistance may be provided throughout the activity or intermittently. 3-Partial/Moderate Assistance-helper does LESS THAN HALF the effort. Delta lifts, holds or supports trunk or limbs, but provides less than half the effort. 2-Substantial/Maximal Assistance-helper does MORE THAN HALF the effort. Delta lifts or holds trunk or limbs and provides more than half the effort. 8-Fazvynose-qxidkf does ALL the effort. Patient does none of the effort to complete the activity. Or, the assistance of 2 or more helpers is required for the patient to complete the activity. If activity was not attempted, code reason: 7-Patient Refused. 9-Not Applicable-not attempted and the patient did not perform the activity before the current illness, exacerbation or injury. 10-Not Attempted due to Environmental Limitations-(lack of equipment, weather restraints, etc.). 88-Not Attempted due to Medical Conditions or Safety Concerns. Roll Left & Right (QC): 6 Sit to Lying (QC): 6 Lying to Sitting/Side of Bed(Q: 6 Sit to Stand (QC): 4 Chair/Uvo-rw-Upcse Xfer(QC): 4 SBA for sit to stand and transfer Weight Bearing Right Lower Extremity: Right Weight Bearing/Tolerated Left Lower Extremity: Left Weight Bearing/Tolerated Gait Training Distance: 400' Walk 10 feet (QC): 4 Walk 50 ft with 2 Turns(QC): 4 Walk 150 ft (QC): 4 Gait Persons Needed: 1 Gait Assistive Device: FWW SBA, slow ambulation, needs cues for direction but he takes them poorly, very agitated, has unsteady moments but was able to recover without assist Treatments bed mobility and transfers, ambulation Assessment Current Status: Fair Progress improved ambulation but patient is agitated, doesn't follow directions well, poor safety awareness PT Senior Administrator Support Goals Alf Goals PT Senior Administrator Support Goals Time Frame: Apr 05, 2020 Roll Left & Right (QC): 6 Sit to Lying (QC): 6 Lying-Sitting on Side/Bed(QC): 6 Sit to Stand (QC): 6 Chair/Diz-we-Nhmdj Xfer(QC): 6 Toilet Transfer (QC): 6 Car Transfer (QC): 6 Walk 10 feet (QC): 6 Walk 50ft with 2 Turns (QC): 6 Walk 150 ft (QC): 6 Walking 10ft on Uneven Surface: 6 1 Step (curb) (QC): 6 4 Steps (QC): 6 Picking up an Object (QC): 5 PT Plan Problem List Problem List: Activity Tolerance, Functional Strength, Safety, Balance, Gait, Transfer Treatment/Plan Treatment Plan: Continue Plan of Care Treatment Plan: Bed Mobility, Education, Functional Activity Vanessa, Functional Strength, Group Therapy, Gait, Safety, Therapeutic Exercise Treatment Duration: Apr 05, 2020 Frequency: 6 times per week Estimated Hrs Per Day: .25 hour per day Patient and/or Family Agrees t: Yes Safety Risks/Education Patient Education: Gait Training, Transfer Techniques, Correct Positioning, Safety Issues Teaching Recipient: Patient Teaching Methods: Demonstration, Discussion Response to Teaching: Reinforcement Needed Time/GCodes Time In: 1023 Time Out: 1034 Total Billed Treatment Time: 11 Total Billed Treatment 1 visit GT 11EVAN CHICAS PT Apr 02, 2020 11:01
--- NOTE | 2020-04-02 12:13 | NUR ---
CM/SS: Telephone call from [facility] Officer Captain, Maliha Obed [phone], she is checking on the status of the pt, as she thought he was going to be admitted to Inpatient Rehab. Verified that pt is currently in the ICU and it is difficult to know what to believe or not believe from pt. She verifies this as well. She verifies that pt has 42 home community based service hours in the home as well as delivered meals, and home yuri life alert. She would like to see pt be able to go to rehab if possible. This worker will follow up.
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
--- NOTE | 2020-04-02 13:26 | NUR ---
CM/SS: Visited with pt as to his current status and plan for discharge Plan: Undetermined at this time Summary: Pt is in bed with noted periods of confusion. He is able to say he came from and that he was to go to inpatient rehab. He reports that he just wants to know when, as his knees are too weak. Pt reports living at home alone and that his son checks on him daily. Pt reports that he did not work with Physical Therapy much when he was in . Throughout the conversation, pt does not establish eye contact, as he gives you information. Pt asked to talk with the women from rehab, this worker notifies her that pt request to speak with her. This worker thanks pt for visiting with her.
--- NOTE | 2020-04-02 14:32 | NUR ---
IRF Met with patient at his request. Patient states he wants to be moved out of ICU and is unsure as to why he is admitted to that unit. He requests this worker to get him transferred. This service writer advisor explained that it is up to his medical team to determine when that is appropriate. Patient also states he is refraining from eating as he does not want to have to utilize commode in room. Met with nurse outside of patient's room to receive an update in regard to his medical status. Nurse also informed of statement in regard to patient not wanting to eat. Patient notified he remains in ICU due to his heart rate and administration of IV medication. Reminded patient his insurance had denied admission to inpatient rehab; however, this service writer advisor stated she would be happy to review his recent performance with therapy. Patient goes on to reminisce and discuss familial issues and hardships. This service writer advisor allowed patient a safe space to talk, as well as provided supportive and active listening. This service writer advisor ensured patient she would be by to check on him tomorrow morning. Did review PT/OT progress notes and patient appears to be ambulating (400ft, FWW) and transferring with supervision; completing bed mobility with independence; SBA with bathing and independent with putting footwear on/off. Patient does not meet criteria for admission as he does not require intensive therapies and is considered "too functional." SW notified of details related to interaction and current level of function.
--- NOTE | 2020-04-02 14:57 | NUR ---
"RD ASSESSMENT PMHx: afib; hypercholesterolemia; HTN; Hep-C; diverticulosis; hypothyroidism; CA(colon) PT INTERACTION: Pt was awake and pleasant during nutrition assessment. Pt states current appetite is alright. Note avg PO intake of 34% x2d, per chart review. Pt states following a regular diet at home, and has no issues with chewing/swallowing food, despite having no teeth. Pt states no recent issues with nausea, vomiting, constipation, or diarrhea. Note last BM was 03/31, and pt currently on bowel regimen of senna BID, per chart review. Pt states no recent wt changes. Note recent 19# wt loss x2mon, per chart review. ABNORMAL NUTRITION-RELATED LAB VALUES LOW: HIGH: Cl 111 Est. kcal needs: 1775 kcal | 20 kcal/kg Est. Pro needs: 71 g Pro | 0.8 g Pro/kg PES STATEMENT: Inadequate oral intake (NI-2.1) related to loss of appetite as evidenced by pt interview | avg PO intake 34% x2d INTERVENTION: Continue with current diet order of Regular diet. Add Ensure Enlive (vary) to meals TID, for increased kcal intake. Provides 350 kcal and 13 g Pro per serving. Encouraged pt to eat when able. Will continue to follow and reassess as pt needs, intake, and status change. MONITOR/EVALUATE: PO Intake; Plan of Care; Hydration Status; Weight Status; Lab Values Manohar Hauser, MS, RD, LD"
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
[2020-04-02] MEDS: cefTRIAXone FOR IV USE 1,000 MG in WATER (STERILE) FOR INJECTION 10 ML IV SCH (16:17)
--- NOTE | 2020-04-02 18:54 | NUR ---
Report called to GORDO Ohara who will tuck patient in and give report to car shifter on arrival to 4th floor room 406. Pt escorted by NT at this time.
--- NOTE | 2020-04-02 20:00 | NUR ---
UPON ENTERING PT'S ROOM PT STATES, "I NEED MY HEART MEDICATION. I HAVEN'T HAD IT FOR DAYS, BUT NO ONE CARES. IS IT FINALLY SHIFT CHANGE? MAYBE I WILL GET A DECENT NURSE THIS TIME AROUND." THIS RN THEN REASSURES PT THAT HIS MEDICATIONS HAVE BEEN ADMINISTERED DAILY ORDERED. THIS RN THEN VERBALLY STATES PT'S MEDICATIONS ALLOWED AND SHOWS PT MEDICATIONS IN THEIR INDIVIDUAL PACKAGING. THIS RN THEN PLACES MEDICATIONS INTO MED CUP AND ATTEMPTS TO HAND CUP TO PT. PT WILL NOT TAKE MEDICATION CUP FROM THIS RN AND STATES, "NAH, I'M GOOD. I DON'T FEEL LIKE TAKING THEM NOW. YOU CAN BRING THEM BACK LATER." THIS RN THEN EDUCATES PT ON THE IMPORTANCE OF TAKING HIS MEDICATIONS THEY ARE ORDERED BY THE DOCTOR. PT FINALLY AGREES TO TAKE MEDS. THIS RN THEN ASKS IF PT NEEDS ANYTHING ELSE BEFORE SHE LEAVES THE ROOM. PT STATES, "NO. I'M GOOD." WHEN THIS RN TURNS TO STEP TOWARD THE DOOR PT PRESSES CALL LIGHT. THIS RN TURNS AROUND AND STATES, "DID YOU ACCIDENTALLY HIT YOUR BUTTON?" PT STATES, "NO, YOU NEED TO GO GET ME A 7 UP. I'M THIRSTY. DON'T TAKE TOO LONG." PT THEN LAUGHS THIS RN EXITS ROOM.
[2020-04-02] MEDS: ALPRAZolam 1 MG (XANAX) TAB PO SCH (20:01)
[2020-04-03 00:17] VITALS: BP 135/80
[2020-04-03 03:59] VITALS: BP 110/80
[2020-04-03 06:12] LABS: CHLORIDE 109 MMOL/L (98-107); SODIUM 140 MMOL/L (135-145)
[2020-04-03 06:13] LABS: CALCIUM 9.5 MG/DL (8.5-10.1); GLUCOSE 107 MG/DL (70-105)
[2020-04-03 06:15] LABS: CARBON DIOXIDE 21 MMOL/L (21-32)
[2020-04-03 06:17] LABS: GFR ESTIMATED > 60; PHOSPHORUS 3.5 MG/DL (2.3-4.7)
[2020-04-03 06:18] LABS: BUN/CREATININE RATIO 8
[2020-04-03] MEDS: KCL 20 MEQ TAB (K-DUR) PO SCH ×2 (06:35→06:47)
[2020-04-03] MEDS: MAGNESIUM 1 GM/100 ML IVPB 100 ML IV SCH (06:35)
[2020-04-03] MEDS: POTASSIUM CL 10MEQ/50ML IVPB 50 ML IV SCH (06:35)
[2020-04-03] MEDS: NS IV 1000 ML 1,000 ML IV SCH (06:36)
[2020-04-03] MEDS: LEVOTHYROXINE 50 MCG (LEVOTHROID) TAB PO SCH (06:38)
[2020-04-03] MEDS: KCL 10 MEQ TAB (MICRO K) PO SCH (06:47)
[2020-04-03 08:16] VITALS: BP 121/75
[2020-04-03] MEDS: AMIODARONE 200 MG (CORDARONE) TAB PO SCH (09:14)
[2020-04-03] MEDS: APIXABAN 5 MG (ELIQUIS) TABLET PO SCH (09:15)
[2020-04-03] MEDS: SENNA W/DOCUSATE (SENOKOT S) TABLET PO SCH (09:15)
--- NOTE | 2020-04-03 09:36 | Physical Therapy Daily Note ---
PT Daily Note-Current Subjective Patient in bed pre tx, agrees to PT, has no complaints of pain. Appearance Patient in bed post tx with nurse call, phone, tray, all needs met. Mental Status Patient Orientation: Person, Confused Transfers SCALE: Activities may be completed with or without assistive devices. 5-Hwlnokkhul-rbrvykg completes the activity by him/herself with no assistance from a helper. 5-Set-up or Clean-up Assistance-helper sets up or cleans up; patient completes activity. [place] assists only prior to or following the activity. 4-Supervision or Touching Assistance-helper provides verbal cues and/or touching/steadying and/or contact guard assistance as patient completes activity. Assistance may be provided throughout the activity or intermittently. 3-Partial/Moderate Assistance-helper does LESS THAN HALF the effort. [place] lifts, holds or supports trunk or limbs, but provides less than half the effort. 2-Substantial/Maximal Assistance-helper does MORE THAN HALF the effort. [place] lifts or holds trunk or limbs and provides more than half the effort. 8-Aewnrogph-xievgo does ALL the effort. Patient does none of the effort to complete the activity. Or, the assistance of 2 or more helpers is required for the patient to complete the activity. If activity was not attempted, code reason: 7-Patient Refused. 9-Not Applicable-not attempted and the patient did not perform the activity before the current illness, exacerbation or injury. 10-Not Attempted due to Environmental Limitations-(lack of equipment, weather restraints, etc.). 88-Not Attempted due to Medical Conditions or Safety Concerns. Roll Left & Right (QC): 6 Sit to Lying (QC): 6 Lying to Sitting/Side of Bed(Q: 6 Sit to Stand (QC): 6 Chair/Zxn-bo-Ayubq Xfer(QC): 4 SBA with transfers Weight Bearing Right Lower Extremity: Right Weight Bearing/Tolerated Left Lower Extremity: Left Weight Bearing/Tolerated Gait Training Distance: 600' Walk 10 feet (QC): 4 Walk 50 ft with 2 Turns(QC): 4 Walk 150 ft (QC): 4 Gait Persons Needed: 1 Gait Assistive Device: None SBA, no AD, slow ambulation, no LOB, no SOB Treatments bed mobility and transfers, ambulation Assessment Current Status: Fair Progress improving endurance and balance PT Mcfp Goals Pneumatic Tube Operator Goals PT Mcfp Goals Time Frame: Apr 05, 2020 Roll Left & Right (QC): 6 Sit to Lying (QC): 6 Lying-Sitting on Side/Bed(QC): 6 Sit to Stand (QC): 6 Chair/Xye-sj-Dkkxk Xfer(QC): 6 Toilet Transfer (QC): 6 Car Transfer (QC): 6 Walk 10 feet (QC): 6 Walk 50ft with 2 Turns (QC): 6 Walk 150 ft (QC): 6 Walking 10ft on Uneven Surface: 6 1 Step (curb) (QC): 6 4 Steps (QC): 6 Picking up an Object (QC): 5 PT Plan Problem List Problem List: Activity Tolerance, Functional Strength, Safety, Balance, Gait, Transfer Treatment/Plan Treatment Plan: Continue Plan of Care Treatment Plan: Bed Mobility, Education, Functional Activity Vanessa, Functional Strength, Group Therapy, Gait, Safety, Therapeutic Exercise Treatment Duration: Apr 05, 2020 Frequency: 6 times per week Estimated Hrs Per Day: .25 hour per day Patient and/or Family Agrees t: Yes Safety Risks/Education Patient Education: Gait Training, Transfer Techniques, Correct Positioning, Safety Issues Teaching Recipient: Patient Teaching Methods: Demonstration, Discussion Response to Teaching: Reinforcement Needed Time/GCodes Time In: 0852 Time Out: 13 Total Billed Treatment Time: 21 Total Billed Treatment 1 visit GT 21' EVAN HAWKINS PT Apr 03, 2020 09:36
[2020-04-03] MEDS ORDERED: AMIO200T4 PO (09:57)
[2020-04-03] MEDS ORDERED: POTA10TA6 PO (09:57)
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
--- NOTE | 2020-04-03 11:43 | Occupational Ther Daily Note ---
OT Current Status-Daily Note Subjective No pain reported. Pt. states that he feels like he is getting stronger. Appearance Pt. in bed when therapy entered. Agrees to work with OT. Mental Status/Objective Patient Orientation: Person, Place ADL-Treatment Therapy Code Descriptions/Definitions Functional Divide Measure: 0=Not Assessed/NA 4=Minimal Assistance 1=Total Assistance 5=Supervision or Setup 2=Maximal Assistance 6=Modified Divide 3=Moderate Assistance 7=Complete IndependenceSCALE: Activities may be completed with or without assistive devices. 7-Eloyftkewk-hfsfqgw completes the activity by him/herself with no assistance from a helper. 5-Set-up or Clean-up Assistance-helper sets up or cleans up; patient completes activity. [place] assists only prior to or following the activity. 4-Supervision or Touching Assistance-helper provides verbal cues and/or touching/steadying and/or contact guard assistance as patient completes activity. Assistance may be provided throughout the activity or intermittently. 3-Partial/Moderate Assistance-helper does LESS THAN HALF the effort. [place] lifts, holds or supports trunk or limbs, but provides less than half the effort. 2-Substantial/Maximal Assistance-helper does MORE THAN HALF the effort. [place] lifts or holds trunk or limbs and provides more than half the effort. 6-Iomsltfjg-zdhvat does ALL the effort. Patient does none of the effort to complete the activity. Or, the assistance of 2 or more helpers is required for the patient to complete the activity. If activity was not attempted, code reason: 7-Patient Refused. 9-Not Applicable-not attempted and the patient did not perform the activity before the current illness, exacerbation or injury. 10-Not Attempted due to Environmental Limitations-(lack of equipment, weather restraints, etc.). 88-Not Attempted due to Medical Conditions or Safety Concerns. On/Off Footwear: 6 (With donning slipper socks.) Other Treatment Pt. is in bed when OT enters room. Pt remembers conversation that was had yesterday with this therapist, and recalls it. Pt. asks what this OT wants him to do. OT encourages pt. to shower. Pt. states, "they are supposed to be bringing me some towels. OT offers to go get towels. Pt. states that he doesn't want to shower right now. OT gives him choice of what to do, as to not agitate him further. Pt. requests to ambulate. Pt. ambulates with independence, without walker up and down long hallway 3 times. Pt. is engaged in conversation throughout, and seems to be in better mood than day before. Pt. transfers back to bed. All needs are met. Education OT Patient Education: Correct positioning, Modified ADL techniques, Progress toward Goal/Update tx plan, Purpose of tx/functional activities, Reviewed precautions, Rehab process, Safety issues, Transfer techniques Teaching Recipient: Patient Teaching Methods: Demonstration, Discussion Response to Teaching: Verbalize Understanding, Return Demonstration, R einforcement Needed OT Short Term Goals Short Term Goals Time Frame: Apr 08, 2020 Eatin Oral hygiene: 4 Toileting hygiene: 3 Shower/bathe self: 3 Upper body dressin Lower body dressin Putting on/taking off footwear: 3 OT Maintenance And Operations Supervisor Goals Maintenance And Operations Supervisor Goals Time Frame: Apr 15, 2020 Eating (QC): 6 Oral Hygiene (QC): 6 Toileting Hygiene (QC): 6 Shower/Bathe Self (QC): 4 Upper Body Dressing (QC): 5 Lower Body Dressing (QC): 4 On/Off Footwear (QC): 4 Additional Goals: 1-Demonstrate ADL Tasks, 2-Verbalize Understanding, 3- ImproveStrength/Vanessa 1=Demonstrate adherence to instructed precautions during ADL tasks. 2=Patient will verbalize/demonstrate understanding of assistive devices/modifications for ADL. 3=Patient will improve strength/tolerance for activity to enable patient to perform ADL's. OT Education/Plan Problem List/Assessment Assessment: Decreased Activ Tolerance, Decreased Safety Aware, Impaired Cognition Pt. made comment during ambulation that he was going to "pretend" to fall. Pt. states that he is joking. Pt. has gait belt on. Discharge Recommendations Plan/Recommendations: Continue POC Treatment Plan/Plan of Care Treatment,Training & Education: Yes Patient would benefit from OT for education, treatment and training to promote independence in ADL's, mobility, safety and/or upper extremity function for ADL's. Plan of Care: ADL Retraining, Functional Mobility, UE Funct Exercise/Act Treatment Duration: Apr 15, 2020 Frequency: 5 times per week Estimated Hrs Per Day: .25 hour per day Agreement: Yes Rehab Potential: Fair Time/GCodes Start Time: 09:55 Stop Time: 10:19 Total Time Billed (hr/min): 24 Billed Treatment Time 1, FA x 2 DEB DURAN OT Apr 03, 2020 11:43
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
--- NOTE | 2020-04-03 14:28 | NUR ---
CM/SS: Telephone Call to [place] [employer] Lieutenant Maliha Sandy , letting her know that pt will be discharged today to home. She asked if pt got an order for a walker. This worker reported that pt was not using a walker when walking, and when asked about needing one or other items for dismissal. Pt reported that he did not need anything. This worker gave information to [place] [employer]. She plans to follow up with pt once he is home. She has requested to have the discharged summary faxed . This worker will fax when completed.
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
== END 2020-04-03 12:18 | disposition home or self-care (01) | DRG 871 ==
LOC: EDUNIT# 16:58 → ER 17:00 → 4TH 17:29 → OBSVTOIN 03-30 11:30 → ICU 03-31 18:36 → 4TH 04-02 18:52
PROVIDERS: ADMIT Internal Medicine; ATTEND Internal Medicine
DX: A41.51 Sepsis due to Escherichia coli [E. coli] (principal); I21.A1 Myocardial infarction type 2; N12 Tubulo-interstitial nephritis, not specified as acute or chronic; G72.81 Critical illness myopathy; I48.92 Unspecified atrial flutter; E87.2 Acidosis; C18.9 Malignant neoplasm of colon, unspecified; I48.0 Paroxysmal atrial fibrillation; F60.3 Borderline personality disorder; R41.0 Disorientation, unspecified; G89.4 Chronic pain syndrome; E78.5 Hyperlipidemia, unspecified; I10 Essential (primary) hypertension; M19.91 Primary osteoarthritis, unspecified site; E03.9 Hypothyroidism, unspecified; F41.9 Anxiety disorder, unspecified; F32.9 Major depressive disorder, single episode, unspecified; K21.9 Gastro-esophageal reflux disease without esophagitis; B18.2 Chronic viral hepatitis C; Z79.01 Long term (current) use of anticoagulants; Z86.711 Personal history of pulmonary embolism; Z90.81 Acquired absence of spleen; Z98.1 Arthrodesis status
CPT/HCPCS: 36415; 71045; 80048; 80053; 80202; 81000; 83605; 83735; 83880; 84100; 84145; 84439; 84443; 85025; 85610; 87040; 87077; 87088; 87186; 93005; 93306; G0378

== ENCOUNTER 2020-04-06 18:27 | Emergency (ER) | payer MEDICAID ==
[~2020-04-06] VITALS: Ht 182.8 cm; Wt 88.2 kg
[~2020-04-06 18:27] MED LIST changes: +POTA10TA6 PO
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
--- OUTSIDE RECORDS SUMMARY | 2020-04-06 18:39 | XMS REPORT | Encounter Summary ---
Author Author [facility] Organization [facility] Address Unknown Phone Unavailable Care Team Providers Care Fountain Attendant Name Role Phone Sherman Spicer MD Unavailable Reyna Bond Unavailable Unavailable Indiana Bauer APRN PCP Unavailable Lenka Fuentes RN [phone] Unavailable Reason for Visit * Reason Comments Medication Question amiodarone Encounter Details Care Team Description Date Type Department Beny Praedes RN Medication Question (amiodarone) 04/05/[address] [facility] [address] [place] [address] Social History Date Tobacco Use Types Packs/Day [...] you been in contact with [facility] to assess someone who was confirmed or suspected to have Coronavirus / COVID-19? documented as of this encounter Functional Status Date of Assessment Functional Status Response 03/25/2020 Does the patient have a hearing impairment: No documented as of this encounter Miscellaneous Notes * Addendum Note - Patrick Eckert RN - 04/05/2020 1:26 PM CDT Addended by: PATRICK ECKERT on: 04/05/2020 01:26 PM Modules accepted: Orders * Telephone Encounter - Patrick Eckert RN - 04/05/2020 1:15 PM CDT Reviewed with MPE. Per MPE, pt to increase current amio dose to 600mg q day for 2 weeks. Then on 04/20/2020, pt to decrease amio to 400mg q day for 3 months. Then on 07/21/2020, pt to decrease to 200mg q day. Called pt to inform him of MPE recommendations. Explained this to pt x3 times. Pt wrote down the dosing and was able to read back to this RN. Reviewed plan wi th the patient. Patient verbalized understanding and does not have any further q uestions or concerns. No further education requested from patient. Patient has o ur contact information for future needs. * Telephone Encounter - Beny Paredes RN - 04/05/2020 10:36 AM CDT Per 03/01 MPE OV... -- On Wednesday, we will initiate Amiodarone 400 mg BID for 2 weeks, then 200 mg TI D for one month, then 400 mg/d for 3 months, then decrease to 200 mg/d pending r esponse. He was due to be on... 400bid until 03/18 200tid until 04/17 400qd until 07/18 200qd thereafter Returned call. He states he was recently hospitalized at (03/16-03/28). He is unsure of how much amio he was taking (per the Discharge Summary, he was t ransitioned to 400qd prior to DC). He has been taking 400bid since discharge & wants to know what dose he should be taking now. 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 I instructed him to decrease amio to 200tid for the next month. We also reviewed the dosing, as above, thereafter. Will route to Will for MPE review. * Telephone Encounter - Beny Paredes RN - 04/05/2020 10:36 AM CDT ----- Message from Mercy Carbajal LPN sent at 04/05/2020 8:15 AM CDT ----- Regarding: MPE- med issue VM from patient on triage line at 8:02pm last night. Said that he needs to talk to us about the Amiodarone that he is on. Call him at #[phone]. documented in this encounter Plan of Treatment [...]
--- OUTSIDE RECORDS SUMMARY | 2020-04-06 18:39 | XMS REPORT | Encounter Summary ---
Author Author [facility] Organization [facility] Address Unknown Phone Unavailable Care Team Providers Care De Alcoholizer Name Role Phone Sherman Spicer MD Unavailable Reyna Bond Unavailable Unavailable Indiana Bauer APRN PCP Unavailable Lenka Fuentes RN [phone] Unavailable Reason for Visit * Reason Comments Appointment Encounter Details Care Team Description Date Type Department Patrick Constantino RN Appointment 04/01/2020 Telephone The [address] [place] [address] Social History Date Tobacco Use Types Packs/Day [...] month, have you been in contact with [facility] to assess someone who was confirmed or suspected to have Coronavirus / COVID-19? documented as of this encounter Functional Status Date of Assessment Functional Status Response 03/25/2020 Does the patient have a hearing impairment: No documented as of this encounter Miscellaneous Notes * Telephone Encounter - Patrick Constantino RN - 04/01/2020 1:12 PM CDT Pt called scheduling line and was transferred to Clinic. Pt reports he is cu rrently admitted to [facility] in [place], [place] for CP and SOA. Pt reports he was admitted on Wednesday03/29/2020. Pt states he wants to be transferred to . Pt informed that this could not happen d/t [facility] but pt could schedule a OV with MPE when DC from [facility]. This RN spoke to pt for approximately 25 minutes regarding this and his current medical condition. Pt explained that the elsi neff MD had made changes to his medications and pt continues to complain of feeli brittney lightheaded and CP. Again, pt informed that this RN could not transfer care from [facility] but pt offered OV with MPE on DC. Pt threatened to leave AMA a nd pt informed that he had the right to do so, but it was not advised to leave A MA. Pt informed to continue medical treatment there. Pt stated he does not hav e transportation to for OV or for procedures. Pt offered patient assistance information and pt hung up on RN. documented in this encounter Plan of Treatment [...]
--- OUTSIDE RECORDS SUMMARY | 2020-04-06 18:40 | XMS REPORT | Encounter Summary ---
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 only) ? Discharge Disposition Durable Medical Equipment No service has been selected for the patient. Destination - Selection Complete Service Provider Request Status Selected Services Address Phone Number Fax Numb er [facility] Selected Inpatient Rehabilitation [address] [facility] [id number] Home Care No service has been selected for the patient. Dialysis/Infusion No service has been selected for the patient. Lara James LMSW *[id number] * Care Plan - Mahogany Medina RN - 03/26/2020 9:49 PM CDT Problem: Discharge Planning Goal: Participation in plan of care Outcome: Goal Ongoing Flowsheets (Taken 03/22/2020 8138 by Allie Ralph, RN) Participation in Plan of Care: Involve patient/caregiver in care planning margareth on making Note: Pt involved in discharge planning and teaching and verbalizes ajay gZarina Pt questions and concerns addressed regarding discharge Goal: Knowledge regarding plan of care Outcome: Goal Ongoing Flowsheets (Taken 03/22/2020 3764 by Liv Polo, RN) Knowledge regarding plan of care: Provide fall prevention education Provide VTE signs and symptoms education Provide plan of care education Provide procedural and treatment education Provide medication management education Provide infection prevention education Goal: Prepared for discharge Outcome: Goal Ongoing Flowsheets (Taken 03/22/2020 1424 by Liv Polo, GORDO) Prepared for discharge: Complete ADL ability assessment [...] (Taken 03/22/2020 0533 by Allie Ralph RN) Healing of skin (Pressure Injury): Assess for signs and symptoms of pressure injury infection Assess pressure injury Implement pressure injury care as ordered Problem: VTE, Risk of Goal: Absence of venous thrombosis Outcome: Goal Ongoing Flowsheets (Taken 03/18/2020 0252 by Allie Ralph RN) Absence of venous thrombosis: Assess peripheral [...] (Taken 03/22/2020 0533 by Allie Ralph RN) Absence of falls-Adult Patient: Complete Fall [...] mobility outcomes Outcome: Goal Ongoing Flowsheets (Taken 03/22/2020620 by Allie Ralph, GORDO) Maximize functional ADLs and mobility outcomes: Administer [...] supplements as ordered. Encourage consistent meal intake lenaor ts. Jamilah Torres RD, LD [employer]Me * Case Mgmt DC Plan - Lara James LMSW - 03/26/2020 12:04 PM CDT Case Management Progress Note NAME:David Rice : 959 AGE: 59 y.o. ADMISSION DATE: 03/16/2020 DAYS ADMITTED: LOS: 10 days Todays Date: 03/26/2020 Plan Anticipate discharge to [facility] in [place], [place] pending insurance autho rization. Interventions ? [...] he would like to be closer to [place], [place]. He is no longer interested in [facility]. Pt requested a referral be sent to [facility] in [place], [place]. SW faxed referral to [facility] and updated [facility] admissions team that p t's preference has changed. SW received phone call from pt's [facility] rifle case repairer, Maliha Rice , [email or web address]) and provided update on POC. 1400: SW called [facility] to f/u on referral ([phone]). BREE spoke chaparrita Wood, who advised referral is being reviewed professional services manager December. BREE spoke with Michelle, who requested referral be re-faxed to [phone]. BREE re-faxed. 1430: BREE notified by December at [facility] ([phone]) that they can clinic ally accept pt for IPR and will initiate insurance authorization today. BREE will continue to follow. ? Medication Needs Financial ? Legal ? Other Disposition ? Expected Discharge Date Expected Discharge Date: 03/27/20 Expected Discharge Time: 1400 ? Transportation Does the patient need discharge transport arranged?: Yes Transportation Name, Phone and Availability #1: [email or web address] Does the patient use Medicaid Transportation?: Yes ? Next Level of Care (Acute Psych discharges only) ? Discharge Disposition Durable Medical Equipment No service has been selected for the patient. Destination - Selection Complete Service Provider Request Status Selected Services Address Phone Number Fax Numb er [facility] Selected Inpatient Rehabilitation [address] [facility] [id number] Home Care No service has been selected for the patient. Dialysis/Infusion No service has been selected for the patient. Lara James LMSW *[phone] * Case Mgmt DC Plan - Nadja Fleming RN - 03/26/2020 10:04 AM CDT Notified by Lara BOUDREAUX) that the patient is anticipated to be ready for disch arge today and would prefer to stay at 's IP rehab unit. Per BREE, patient does not have a strong family support system; however does have HCBS. Rehab will r eview chart for possible admission. [id number]- er chart review, patient was determined to be an appropriate candidate fo [facility] level of care per rehab consult yesterday. Patient noted to have chest avi n this morning. Troponin, EKG, and stress test all ordered. 1158 - Notified by Lara Lund (BREE), that the patient has now changed his mind an d would like to go to [facility]. Rehab will stop following the patient for possible rehab admission at this time. BREE can contact Rehab admission li mar again, if anything changes. Vickey, Inpatient Admissions Nurse/Rehab. (office# [phone] or voalte# [phone]). * Care Plan - Deborah Gramajo RN [...] 2:54 PM CDT Case Management Progress Note NAME:David [...] at d/c. PM&R consult today, recs pending. SW called pt at bedside to discuss plan. Pt states he is agreeable to IPR and would prefer [facility]. He is open to exploring other facilities if [facility] cannot ac cept. SW notified [facility] admissions team that pt is interested in [facility]. SW will continue to follow. ? Medication Needs Financial ? Legal ? Other Disposition ? Expected Discharge Date Expected Discharge Date: 03/26/20 Expected Discharge Time: 1600 ? Transportation Does the patient need discharge transport arranged?: Yes Transportation Name, Phone and Availability #1: [id number] Does the patient use Medicaid Transportation?: Yes [...] care Outcome: Goal Ongoing Flowsheets (Taken 03/22/2020 0553 by Allie Ralph, RN) Participation in Plan of Care: Involve patient/caregiver in care planning decisi on making Goal: Knowledge regarding plan of care Outcome: Goal Ongoing Flowsheets (Taken 03/22/2020 1484) Knowledge regarding plan of care: Provide fall prevention education Provide VTE signs and symptoms education Provide plan of care education Provide procedural and treatment education Provide medication management education Provide infection prevention education Note: Updated patient and son on plan of care. Goal: Prepared for discharge Outcome: Goal Ongoing Flowsheets (Taken 03/22/2020 3674) Prepared for discharge: Complete ADL ability assessment [...] (Taken 03/18/2020 0252 by Allie Ralph, RN) Healing of wound (wounds and Incisions): [...] Patient Outcome: Goal Ongoing Flowsheets (Taken 03/22/2020 05 by Allie Ralph, RN) Absence of falls-Adult [...] Ralph RN Outcome: Goal Ongoing Flowsheets (Taken 03/16/20200) Absence of injury while physically restrained - [...] catheter-associated infection Outcome: Goal Ongoing Flowsheets (Taken 03/16/20200) Absence of urinary catheter-associated infections: Manage urinary [...] intake Outcome: Goal Ongoing Flowsheets (Taken 03/22/2020 0533) Adequate nutritional intake: Assess dietary preferences Promote oral fluid intake Assess nutritional status Problem: Falls, High Risk of Goal: Absence of falls-Adult Patient Outcome: Goal Ongoing Flowsheets (Taken 03/22/2020 0533) Absence of falls-Adult Patient: Complete Fall Risk Assessment. Provde safe environment. Implement fall risk bundle. Consider additional interventions if patient is confused, has gait/balance prob lems and on high risk medications. Provide fall prevention strategies. Problem: Aspiration, Risk of Goal: Tolerates oral intake Outcome: Goal Ongoing Flowsheets (Taken 03/22/2020 0533) Tolerates Oral Intake: Manage oral intake Goal: Absence of aspiration Outcome: Goal Ongoing Flowsheets (Taken 03/22/2020 0533) Absence of aspiration: Assess for signs and [...] Outcome: Goal Ongoing Extubated 03/20, TF stopped. MOHS SURGEON/GENERAL DERMATOLOGIST following, advanced to cardiac/soft diet with 1. 5L fluid restriction this am. Pt reports poor appetite so far, ate only a few bi bud of mashed potatoes with gravy and chicken for lunch today -- encouraged incr eased intakes. Will send Boost HP once daily to assist with meeting needs. Anni Gonzales, MS, RD, LD, CNSC Available on [employer] * Care Plan - Vero Tejada RN [...] to follow for CM needs. Patient Address/Phone [address] [place] [address] (home) Emergency Contact Extended Emergency Contact Information Primary Emergency Contact: Kota Rice Address: [place] [address] Mobile Relation: Son Secondary Emergency Contact: Onur Rice Mobile Relation: Son Email Marketing Intern needed? No Healthcare Directive Transportation Does the patient need discharge transport arranged?: Yes Transportation Name, Phone and Availability #1: [email or web address] Does the patient use Medicaid Transportation?: Yes [...] PCP [place] Bauer, None, None ? Pharmacy [address] [address] ? Durable Medical Equipment Durable Medical Equipment [...] ? Outpatient Therapy PT: No OT: No MOHS SURGEON/GENERAL DERMATOLOGIST: No ? Alf Facility/Intermediate SNF: No NH: No ? Inpatient Rehab IPR: No ? Long-Term Acute Care Hospital LTACH: No ? Acute Hospital Stay Acute Hospital Stay: Yes Was patient's stay within the last 30 days?: Yes [facility] When did patient receive care?: 02/20/20 to 02/23/20 Readmission Code Group: 9. Unrelated Readmision Johanny Almaguer RN, BSN Nurse Vp Software Support [phone] * Care Plan - Allie Ralph RN - 03/18/2020 2:56 AM CDT Problem: Discharge Planning Goal: Participation in plan of care Outcome: Goal Ongoing Goal: Knowledge regarding plan of care Outcome: Goal Ongoing Goal: Prepared for discharge Outcome: Goal Ongoing Problem: Injury-Risk of, Non-Violent Physical Restraints Goal: Absence of Injury while physically restrained (Non-Violent) Outcome: Goal Ongoing Flowsheets (Taken 03/16/20200) Absence of injury while physically restrained - [...] catheter-associated infection Outcome: Goal Ongoing Flowsheets (Taken 03/16/20200) Absence of urinary catheter-associated infections: Manage urinary catheter Assess for signs and sypmtoms of catheter-associated urinary tract infection Collect urinne specimens appropriately Problem: Respiratory Impairment (Ventilated Patients) Goal: Normal spontaneous ventilation Outcome: Goal Ongoing Flowsheets (Taken 03/16/20200) Normal Spontaneous Ventilation: Assess mechanical ventilation Assess mechanical ventilation weaning readiness Provide mechanical ventilation managment Manage endotracheal/tracheal tube Provide oral hygiene Goal: Absence of pulmonary infection (Adult only) Outcome: Goal Ongoing Flowsheets (Taken 03/16/20200) Absence of pulmonary infection: Intiate ventilator-associated pneumonia bundle Problem: VTE, Risk of Goal: Absence of venous thrombosis Outcome: Goal Ongoing Flowsheets (Taken 03/18/2020 025) Absence of venous thrombosis: Assess peripheral circulation Assess for signs and symptoms of venous thrombosis Utilize prevent measures Problem: Self-Care Deficit Goal: Maximize Heart Failure Knowledge Outcome: Goal Ongoing Goal: Maximize Heart Failure Attitudes Outcome: Goal Ongoing Goal: Maximize Heart Failure Behaviors Outcome: Goal Ongoing Problem: Nutrition Deficit Goal: Adequate nutritional intake Outcome: Goal Ongoing Flowsheets (Taken 03/18/2020 025) Adequate nutritional intake: Manage tube feeding and enteral nutritional administration Assess nutritional status Problem: Falls, High Risk of Goal: Absence of falls-Adult Patient Outcome: Goal Ongoing Flowsheets (Taken 03/18/2020 025) Absence of falls-Adult Patient: Complete Fall Risk [...] 92 mL OTHER OUTSIDE LAB Study Number [id number] OTHER OUTSIDE LAB Nuclear In aggregate the current study OTHER OUTSIDE Cardiology is low risk in regards to LAB Mortality Risk predicted annual cardiovascular mortality rate. Specimen Narrative Performed At OTHER OUTSIDE LAB Nuclear Report [facility] Division of Nuclear Cardiac Imaging Consultation Report EXAMINATION: D-SPECT Gated [id number] 1 Chloride myocardial perfusion single-photon emission computed tomogra phy for viability, resting regional wall function, resting ejection fractio n, and perfusion imaging utilizing Regadenoson pharmacological stress. Date of Study: 03/27/20 Study #: [id number] [facility] Billing ID: [id number] Referring Physician: Requested by: Jaylene Mcdonough MD BMI: 28.32 kg/m2 INDICATIONS FOR STUDY [...] myocardial ischemia. PROCEDURAL DETAILS: Initially, the pa kendallnt received a 5 ml intravenous infusion of Regadenoson at 0.08 mg/ml o oziel 10 to 15 seconds. Approximately 20 seconds later 1.8 mCi of [id number] Chloride was injected intravenously. Throughout the infusion [...] intravenous injection of 0.5 5 mCi of [id number] Chloride as a reinjected dose to assist [...] Pharmacologic stress ECG is negative for ischemia. Byzoobpjd-cm-Kegmpzehzl Count Ratio: 0.36 (normal = or < [...] annual cardiovascular mortality rate. Performing Organization Address [facility] Ph one Number OTHER OUTSIDE LAB * MAGNESIUM (03/27/2020 4:48 AM CDT) Magnesium 2.0 1.6 - 2.6 mg/dL [facility] MAIN [facility] Specimen Blood Performing Organization Address [facility] Ph one Number [facility] MAIN LAB [address] [place] [address] * COMPREHENSIVE METABOLIC PANEL (03/27/2020 4:48 AM [...] >60 >60 mL/min [facility] Comment: [place] The eGFR is not validated f or use in drug dosing adjustments. Continue to use estimated creatinine clearance per dosing reference text. Please contact the Clinical Pharmacist for questions. eGFR >60 >60 mL/min [facility] [place] Comment: The eGFR is not validated for use in drug dosing adjustments. Continue to use estimated creatinine clearance per dosing reference text. Please contact the Clinical Pharmacist for questions. Specimen Blood Performing Organization Address City/State/Zipcode Ph one Number [facility] MAIN [facility] [address] [place] [address] * CBC AND DIFF (03/27/2020 4:48 AM [...] Basophil Count Specimen Blood Performing Organization Address [facility] Ph one Number MAIN LAB [address] [place] [address] * MAGNESIUM (03/26/2020 4:31 AM CDT) Pathologist [facility] Magnesium 2.0 1.6 - 2.6 mg/dL [facility] Specimen Blood Performing Organization Address [facility] Ph one Number [facility] MAIN [facility] [address] [place] [address] * COMPREHENSIVE METABOLIC PANEL (03/26/2020 4:31 AM CDT) Pathologist [facility] Sodium 139 137 - 147 MMOL/L [facility] [...] >60 >60 mL/min [facility] Comment: [place] The eGFR is not validated f or use in drug dosing adjustments. Continue to use estimated creatinine clearance per dosing reference text. Please contact the Clinical Pharmacist for questions. eGFR >60 >60 mL/min [facility] [place] Comment: The eGFR is not validated for use in drug dosing adjustments. Continue to use estimated creatinine clearance per dosing reference text. Please contact the Clinical Pharmacist for questions. Specimen Blood Performing Organization Address [facility] one Number [facility] MAIN [facility] [address] [place] [address] * CBC AND DIFF (03/26/2020 4:31 AM [...] Basophil Count Specimen Blood Performing Organization Address [facility] one Number [facility] MAIN [facility] [address] [place] [address] * TROPONIN-I (03/26/2020 3:15 AM CDT) Troponin-I 0.10 (H) 0.0 - 0.05 NG/ML [facility] Specimen Blood Performing Organization Address [facility] one Number [facility] [address] [place] [address] * TROPONIN-I (03/26/2020 12:45 AM CDT) Troponin-I 0.09 (H) 0.0 - 0.05 NG/ML [facility] Specimen Blood Performing Organization Address [facility] one Number [facility] MA[facility] [address] [place] [address] * MAGNESIUM (03/25/2020 4:48 AM CDT) Magnesium 2.2 1.6 - 2.6 mg/dL [facility] Specimen Blood Performing Organization Address [facility] one Number [facility] [address] [place] [address] * COMPREHENSIVE METABOLIC PANEL (03/25/2020 4:48 AM [...] >60 >60 mL/min [facility] Comment: [place] The eGFR is not validated f or use in drug dosing adjustments. Continue to use estimated creatinine clearance per dosing reference text. Please contact the Clinical Pharmacist for questions. eGFR >60 >60 mL/min [facility] [place] Comment: The eGFR is not validated for use in drug dosing adjustments. Continue to use estimated creatinine clearance per dosing reference text. Please contact the Clinical Pharmacist for questions. Specimen Blood Performing Organization Address [facility] one Number [facility] [address] [place] [address] * CBC AND DIFF (03/25/2020 4:48 AM [...] Basophil Count Specimen Blood Performing Organization Address [facility] one Number [facility] [address] [place] [address] * MAGNESIUM (03/24/2020 4:00 AM CDT) Magnesium 2.2 1.6 - 2.6 mg/dL [facility]IN [facility] Specimen Blood Performing Organization Address City/[facility]/Zipcode Ph one Number [facility] MAIN LAB [address] [place] [address] * COMPREHENSIVE METABOLIC PANEL (03/24/2020 4:00 AM [...] >60 >60 mL/min [facility] Comment: [place] The eGFR is not validated f or use in drug dosing adjustments. Continue to use estimated creatinine clearance per dosing reference text. Please contact the Clinical Pharmacist for questions. eGFR >60 >60 mL/min [facility] [place] Comment: The eGFR is not validated for use in drug dosing adjustments. Continue to use estimated creatinine clearance per dosing reference text. Please contact the Clinical Pharmacist for questions. Specimen Blood Performing Organization Address City/State/Zipcode Ph one Number [facility] MAIN [facility] [address] [place] [address] * CBC AND DIFF (03/24/2020 4:00 AM CDT) White Blood 12.6 (H) 4.5 - 11.0 K/UL [facility] Cells RBC 3.83 (L) 4.4 - 5.5 M/UL [facility] Hemoglobin 10.8 (L) 13.5 - 16.5 GM/DL [facility] Hematocrit 31.6 (L) 40 - 50 % [facility] MCV 82.6 80 - 100 FL [facility]IN [facility] MCH 28.2 26 - 34 PG MAIN LAB MCHC 34.2 32.0 - 36.0 [...] Basophil Count Specimen Blood Performing Organization Address [facility] Ph one Number MAIN LAB [address] [place] [address] * TROPONIN-I (03/24/2020 12:40 AM CDT) Troponin-I 0.14 (H) 0.0 - 0.05 NG/ML MAIN LAB Specimen Blood Performing Organization Address [facility] Ph one Number MAIN LAB [address] [place] [address] * MAGNESIUM (03/23/2020 4:12 AM CDT) Magnesium 2.4 1.6 - 2.6 mg/dL MAIN LAB Specimen Blood Performing Organization Address [facility] Ph one Number MAIN LAB [address] [place] [address] * COMPREHENSIVE METABOLIC PANEL (03/23/2020 4:12 AM [...] >60 >60 mL/min [facility] Comment: [place] The eGFR is not validated f or use in drug dosing adjustments. Continue to use estimated creatinine clearance per dosing reference text. Please contact the Clinical Pharmacist for questions. eGFR >60 >60 mL/min [facility] [place] Comment: The eGFR is not validated for use in drug dosing adjustments. Continue to use estimated creatinine clearance per dosing reference text. Please contact the Clinical Pharmacist for questions. Specimen Blood Performing Organization Address City/State/Zipcode Ph one Number [facility]IN [facility] [address] [place] [address] * CBC AND DIFF (03/23/2020 4:12 AM [...] Basophil Count Specimen Blood Performing Organization Address [facility] one Number MAIN LAB [address] [place] [address] * MAGNESIUM (03/22/2020 2:10 PM CDT) Magnesium 2.4 1.6 - 2.6 mg/dL [facility]IN [facility] Specimen Blood Performing Organization Address [facility] one Number MAIN LAB [address] [place] [address] * BASIC METABOLIC PANEL (03/22/2020 2:10 PM [...] >60 >60 mL/min [facility] Comment: [place] The eGFR is not validated f or use in drug dosing adjustments. Continue to use estimated creatinine clearance per dosing reference text. Please contact the Clinical Pharmacist for questions. eGFR >60 >60 mL/min [facility] [place] Comment: The eGFR is not validated for use in drug dosing adjustments. Continue to use estimated creatinine clearance per dosing reference text. Please contact the Clinical Pharmacist for questions. Specimen Blood Performing Organization Address [facility] one Number MAIN LAB [address] [place] [address] * MAGNESIUM (03/22/2020 7:55 AM CDT) Magnesium 2.5 1.6 - 2.6 mg/dL [facility] MAIN [facility] Specimen Blood Performing Organization Address [facility] one Number MAIN LAB [address] [place] [address] * BASIC METABOLIC PANEL (03/22/2020 7:55 AM [...] >60 >60 mL/min [facility] Comment: [place] The eGFR is not validated f or use in drug dosing adjustments. Continue to use estimated creatinine clearance per dosing reference text. Please contact the Clinical Pharmacist for questions. eGFR >60 >60 mL/min MAIN LAB [place] Comment: The eGFR is not validated for use in drug dosing adjustments. Continue to use estimated creatinine clearance per dosing reference text. Please contact the Clinical Pharmacist for questions. Specimen Blood Performing Organization Address [facility] one Number MAIN LAB [address] [place] [address] * MAGNESIUM (03/22/2020 4:00 AM CDT) Magnesium 2.3Comment: SLT HEMOLYSIS 1.6 - 2.6 mg/dL [facility] MAIN LAB Specimen Blood Performing Organization Address [facility] [facility] MAIN LAB [address] [id number] * COMPREHENSIVE METABOLIC PANEL (03/22/2020 4:00 AM [...] >60 >60 mL/min [facility] MAIN LAB Comment: [place] The eGFR is not validated f or use in drug dosing adjustments. Continue to use estimated creatinine clearance per dosing reference text. Please contact the Clinical Pharmacist for questions. eGFR >60 >60 mL/min [facility] MAIN LAB [place] Comment: The eGFR is not validated for use in drug dosing adjustments. Continue to use estimated creatinine clearance per dosing reference text. Please contact the Clinical Pharmacist for questions. Specimen Blood Performing Organization Address City/State/Zipcode Ph one Number [facility] MAIN LAB [address] [place] [address] * CBC AND DIFF (03/22/2020 4:00 AM [...] Ph one Number [facility] MAIN LAB [address] [place] [address] * CHEST SINGLE VIEW (03/21/2020 5:40 PM [...] on 03/22/2020 7:17 AM. Performing Organization Address [facility] one Number [facility]U RAD RESULTS * MAGNESIUM (03/21/2020 5:15 PM CDT) Pathologist [facility] Magnesium 2.4 1.6 - 2.6 mg/dL MAIN LAB Specimen Blood Performing Organization Address [facility] one Number [facility] MAIN LAB [address] [place] [address] * BASIC METABOLIC PANEL (03/21/2020 5:15 PM CDT) Pathologist [facility] Sodium 144 137 - 147 MMOL/L K[facility] [...] >60 >60 mL/min [facility] MAIN LAB Comment: [place] The eGFR is not validated f or use in drug dosing adjustments. Continue to use estimated creatinine clearance per dosing reference text. Please contact the Clinical Pharmacist for questions. eGFR >60 >60 mL/min [facility] MAIN LAB [place] Comment: The eGFR is not validated for use in drug dosing adjustments. Continue to use estimated creatinine clearance per dosing reference text. Please contact the Clinical Pharmacist for questions. Specimen Blood Performing Organization Address [facility] one Number [facility] MAIN LAB [address] [place] [address] * TROPONIN-I (03/21/2020 1:55 PM CDT) Pathologist [facility] Troponin-I 0.67 (H) 0.0 - 0.05 NG/ML [facility] MAIN LAB Specimen Blood Performing Organization Address [facility] one Number MAIN LAB [address] [place] [address] * PROTEIN/CR RATIO,UR RAN (03/21/2020 1:55 PM CDT) Protein, Random 5 MG/DL [facility] MAIN LAB Creatinine, 9 MG/DL [facility] MAIN LAB Random Protein/CR 0.6 [facility] MAIN LAB ratio Specimen Urine - Urine Performing Organization Address [facility] one Number MAIN LAB [address] [place] [address] * TROPONIN-I (03/21/2020 3:15 AM CDT) Troponin-I 0.72 (H) 0.0 - 0.05 NG/ML [facility] MAIN LAB Specimen Performing Organization Address [facility] one Number MAIN LAB [address] [place] [address] * MAGNESIUM (03/21/2020 3:15 AM CDT) Magnesium 2.3 1.6 - 2.6 mg/dL [facility] MAIN LAB Specimen Blood Performing Organization Address [facility] one Number MAIN LAB [address] [place] [address] * COMPREHENSIVE METABOLIC PANEL (03/21/2020 3:15 AM [...] >60 >60 mL/min [facility] MAIN LAB Comment: [place] The eGFR is not validated f or use in drug dosing adjustments. Continue to use estimated creatinine clearance per dosing reference text. Please contact the Clinical Pharmacist for questions. eGFR >60 >60 mL/min [facility] MAIN LAB [place] Comment: The eGFR is not validated for use in drug dosing adjustments. Continue to use estimated creatinine clearance per dosing reference text. Please contact the Clinical Pharmacist for questions. Specimen Blood Performing Organization Address City/[facility] Number [facility] MAIN [facility] [address] [place] [address] * CBC AND DIFF (03/21/2020 3:15 AM [...] Ph one Number [facility] MAIN LAB [address] [place] [address] * TROPONIN-I (03/20/2020 7:33 PM CDT) Troponin-I 0.32 (H) 0.0 - 0.05 NG/ML [facility] MAIN LAB Specimen Blood Performing Organization Address [facility] Ph one Number MAIN LAB [address] [place] [address] * TROPONIN-I (03/20/2020 2:10 PM CDT) Troponin-I 0.22 (H) 0.0 - 0.05 NG/ML [facility] MAIN LAB Specimen Performing Organization Address [facility] Ph one Number MAIN LAB [address] [place] [address] * MAGNESIUM (03/20/2020 2:10 PM CDT) Magnesium 2.5 1.6 - 2.6 mg/dL MAIN LAB Specimen Blood Performing Organization Address [facility] Ph one Number MAIN LAB [address] [place] [address] * BASIC METABOLIC PANEL (03/20/2020 2:10 PM CDT) Sodium 147 137 - 147 MMOL/L [facility] MAIN LAB Potassium 3.6 3.5 - 5.1 MMOL/L [facility] MAIN LAB Chloride 108 98 - 110 MMOL/L MAIN LAB CO2 31 (H) 21 - [...] (L) >60 mL/min [facility] MAIN LAB Comment: [place] The eGFR is not validated f or use in drug dosing adjustments. Continue to use estimated creatinine clearance per dosing reference text. Please contact the Clinical Pharmacist for questions. eGFR >60 >60 mL/min [facility] MAIN LAB [place] Comment: The eGFR is not validated for use in drug dosing adjustments. Continue to use estimated creatinine clearance per dosing reference text. Please contact the Clinical Pharmacist for questions. Specimen Blood Performing Organization Address City/[facility] Ph one Number MAIN LAB [address] [place] [address] * BLOOD GASES, ARTERIAL (03/20/2020 8:36 AM [...] Blood, arterial - Blood Performing Organization Address [facility] Ph one Number MAIN LAB [address] [place] [address] * CHEST SINGLE VIEW (03/20/2020 8:29 AM [...] on 03/20/2020 9:16 AM. Performing Organization Address [facility] one Number [facility] RAD RESULTS * MAGNESIUM (03/20/2020 4:45 AM CDT) Magnesium 2.4 1.6 - 2.6 mg/dL [facility] MAIN LAB Specimen Blood Performing Organization Address [facility] one Number MAIN LAB [address] [place] [address] * COMPREHENSIVE METABOLIC PANEL (03/20/2020 4:45 AM [...] >60 >60 mL/min [facility] MAIN LAB Comment: [place] The eGFR is not validated f or use in drug dosing adjustments. Continue to use estimated creatinine clearance per dosing reference text. Please contact the Clinical Pharmacist for questions. eGFR >60 >60 mL/min [facility] MAIN LAB [place] Comment: The eGFR is not validated for use in drug dosing adjustments. Continue to use estimated creatinine clearance per dosing reference text. Please contact the Clinical Pharmacist for questions. Specimen Blood Performing Organization Address [facility]/Zipcode Ph one Number [facility] MAIN LAB [address] [place] [address] * CBC AND DIFF (03/20/2020 4:45 AM [...] Basophil Count Specimen Blood Performing Organization Address [facility] Ph one Number [facility] MAIN LAB [address] [place] [address] * MAGNESIUM (03/19/2020 3:58 AM CDT) Magnesium 2.3 1.6 - 2.6 mg/dL [facility] MAIN LAB Specimen Blood Performing Organization Address City/[facility] Ph one Number MAIN LAB [address] [place] [address] * COMPREHENSIVE METABOLIC PANEL (03/19/2020 3:58 AM CDT) Pathologist [facility] Sodium 146 137 - 147 MMOL/L K[facility] [...] >60 >60 mL/min [facility] MAIN LAB Comment: [place] The eGFR is not validated f or use in drug dosing adjustments. Continue to use estimated creatinine clearance per dosing reference text. Please contact the Clinical Pharmacist for questions. eGFR >60 >60 mL/min [facility] MAIN LAB [place] Comment: The eGFR is not validated for use in drug dosing adjustments. Continue to use estimated creatinine clearance per dosing reference text. Please contact the Clinical Pharmacist for questions. Specimen Blood Performing Organization Address City/State/Zipcode Ph one Number [facility] MAIN LAB [address] [place] [address] * CBC AND DIFF (03/19/2020 3:58 AM CDT) White Blood 12.8 (H) 4.5 - 11.0 K/UL [facility] MAIN LAB Cells RBC 4.43 4.4 - 5.5 M/UL [facility] MAIN LAB Hemoglobin 12.1 (L) 13.5 - 16.5 GM/DL [facility] MAIN LAB Hematocrit 36.5 (L) 40 - 50 % [facility] MAIN LAB MCV 82.4 80 - 100 FL [facility] MAIN LAB MCH 27.3 26 - 34 PG [facility] MAIN LAB MCHC 33.1 32.0 - 36.0 G/DL [facility] MAIN LAB RDW 15.1 (H) 11 - 15 % [facility] MAIN LAB Platelet Count 434 (H) 150 [...] Count Manual Specimen Blood Performing Organization Address [facility] Ph one Number MAIN LAB [address] [place] [address] * THYROID STIMULATING HORMONE-TSH (03/19/2020 3:58 AM CDT) TSH 7.65 (H) 0.35 - 5.00 MCU/ML MAIN LAB Specimen Blood Performing Organization Address [facility] Ph one Number MAIN LAB [address] [place] [address] * TRIGLYCERIDE (03/19/2020 3:58 AM CDT) Triglycerides 120 <150 MG/DL MAIN LAB Specimen Blood Performing Organization Address [facility] one Number MAIN LAB [address] [place] [address] * BLOOD GASES, ARTERIAL (03/19/2020 3:58 AM CDT) pH-Arterial 7.46 (H) 7.35 - 7.45 MAIN LAB pCO2-Arterial 40 35 - 45 MMHG MAIN LAB pO2-Arterial 103 (H) 80 - 100 MMHG MAIN LAB Base 4.1 MMOL/L MAIN LAB Excess-Arterial O2 Sat-Arterial 98.0 95 - 99 % MAIN LAB Bicarbonate-ART 28.1 (H) 21 - 28 MMOL/L MAIN LAB -Won Specimen Blood, arterial - Blood Performing Organization Address [facility] one Number MAIN LAB [address] [place] [address] * CBC (03/18/2020 12:10 PM CDT) White Blood 16.5 (H) 4.5 - 11.0 K/UL MAIN LAB Cells RBC 4.49 4.4 - 5.5 M/UL [facility] MAIN LAB Hemoglobin 12.4 (L) 13.5 - 16.5 GM/DL MAIN LAB Hematocrit 37.2 (L) 40 - 50 % [facility] MAIN LAB MCV 82.9 80 - 100 FL [facility] MAIN LAB MCH 27.6 26 - 34 PG [facility] MAIN LAB MCHC 33.3 32.0 - 36.0 G/DL MAIN LAB RDW 15.4 (H) 11 - 15 % MAIN LAB Platelet Count 346 150 - 400 K/UL MAIN LAB MPV 8.6 7 - 11 FL [facility] MAIN LAB Specimen Blood Performing Organization Address [facility] Ph one Number MAIN LAB [address] [place] [address] * IONIZED CALCIUM,BG (03/18/2020 9:45 AM CDT) Ionized Calcium 1.20 1.0 - 1.3 MMOL/L MAIN LAB Specimen Blood Performing Organization Address [facility] Ph one Number MAIN LAB [address] [place] [address] * PHOSPHORUS (03/18/2020 9:45 AM CDT) Phosphorus 4.0 2.0 - 4.5 MG/DL MAIN LAB Specimen Blood Performing Organization Address [facility] Ph one Number MAIN LAB [address] [place] [address] * MAGNESIUM (03/18/2020 9:45 AM CDT) Magnesium 2.4 1.6 - 2.6 mg/dL MAIN LAB Specimen Blood Performing Organization Address [facility] Ph one Number MAIN LAB [address] [place] [address] * BASIC METABOLIC PANEL (03/18/2020 9:45 AM CDT) Sodium 148 (H) 137 - 147 MMOL/L [facility] MAIN LAB [...] 25 MG/DL [facility] MAIN LAB Nitrogen Creatinine 1.31 (H) 0.4 - 1.24 MG/DL [facility] MAIN LAB Calcium 8.4 (L) 8.5 - 10.6 MG/DL [facility] MAIN LAB eGFR Non 56 (L) >60 mL/min [facility] MAIN LAB Comment: [place] The eGFR is not validated f or use in drug dosing adjustments. Continue to use estimated creatinine clearance per dosing reference text. Please contact the Clinical Pharmacist for questions. eGFR >60 >60 mL/min [facility] MAIN LAB [place] Comment: The eGFR is not validated for use in drug dosing adjustments. Continue to use estimated creatinine clearance per dosing reference text. Please contact the Clinical Pharmacist for questions. Specimen Blood Performing Organization Address City/State/Zipcode Ph one Number [facility] MAIN LAB [address] [place] [address] * 2D + DOPPLER ECHO (03/18/2020 7:27 [...] OTHER OUTSIDE Mass Index LAB Cardiology Siemens [id number] OTHER OUTSIDE Ultrasound LAB Machine Referring Indiana Bauer OTHER OUTSIDE Provider LAB CV ECHO PV Floor RN OTHER OUTSIDE PALLET ASSEMBLER LAB ECHO EF 60 % OTHER OUTSIDE [...] pericardial effusion is seen. Performing Organization Address City/[facility] Ph one Number OTHER OUTSIDE LAB * [...] Blood, arterial - Blood Performing Organization Address City/[facility] Ph one Number [facility] MAIN LAB [address] [place] [address] * CHEST SINGLE VIEW (03/18/2020 5:23 AM [...] on 03/18/2020 8:03 AM. Performing Organization Address [facility] one Number [facility] RAD RESULTS * MAGNESIUM (03/18/2020 4:30 AM CDT) Magnesium 2.4 1.6 - 2.6 mg/dL [facility] MAIN LAB Specimen Blood Performing Organization Address [facility] one Number [place] MAIN LAB [address] [place] [address] * COMPREHENSIVE METABOLIC PANEL (03/18/2020 4:30 AM [...] >60 >60 mL/min [facility] MAIN LAB Comment: [place] The eGFR is not validated f or use in drug dosing adjustments. Continue to use estimated creatinine clearance per dosing reference text. Please contact the Clinical Pharmacist for questions. eGFR >60 >60 mL/min [facility] MAIN LAB [place] Comment: The eGFR is not validated for use in drug dosing adjustments. Continue to use estimated creatinine clearance per dosing reference text. Please contact the Clinical Pharmacist for questions. Specimen Blood Performing Organization Address [facility] one Number [facility] MAIN LAB [address] [place] [address] * CBC AND DIFF (03/18/2020 4:30 AM [...] Ph one Number [facility] MAIN LAB [address] [place] [address] * BASIC METABOLIC PANEL (03/18/2020 1:38 AM [...] >60 >60 mL/min [facility] MAIN LAB Comment: [place] The eGFR is not validated f or use in drug dosing adjustments. Continue to use estimated creatinine clearance per dosing reference text. Please contact the Clinical Pharmacist for questions. eGFR >60 >60 mL/min [facility] MAIN LAB [place] Comment: The eGFR is not validated for use in drug dosing adjustments. Continue to use estimated creatinine clearance per dosing reference text. Please contact the Clinical Pharmacist for questions. Specimen Blood Performing Organization Address City/[facility] Number MAIN LAB [address] [place] [address] * BNP (B-TYPE NATRIURETIC PEPTI) (03/18/2020 1:38 AM CDT) B Type 548.0 (H) 0 - 100 PG/ML MAIN LAB Natriuretic Peptide Specimen Blood Performing Organization Address [facility] one Number MAIN LAB [address] [place] [address] * MAGNESIUM (03/18/2020 1:38 AM CDT) Magnesium 2.5 1.6 - 2.6 mg/dL MAIN LAB Specimen Blood Performing Organization Address [facility] one Number MAIN LAB [address] [place] [address] * CULTURE-BLOOD W/SENSITIVITY (03/17/2020 10:00 PM CDT) Battery Name BLOOD CULTURE MAIN LAB Specimen BLOOD MAIN LAB Description LEFT RADIAL Special NONE MAIN LAB Requests Culture NO GROWTH 5 DAYS MAIN LAB Report Status FINAL MAIN LAB 03/24/2020 Specimen Blood Performing Organization Address [facility] Ph one Number MAIN LAB [address] [place] [address] * CULTURE-BLOOD W/SENSITIVITY (03/17/2020 10:00 PM CDT) Battery Name BLOOD CULTURE MAIN LAB Specimen BLOOD MAIN LAB Description RIGHT IJ WHT Special NONE MAIN LAB Requests Culture NO GROWTH 5 DAYS MAIN LAB Report Status FINAL MAIN LAB 03/24/2020 Specimen Blood Performing Organization Address [facility] one Number MAIN LAB [address] [place] [address] * MAGNESIUM (03/17/2020 1:24 PM CDT) Magnesium 2.4 1.6 - 2.6 mg/dL [facility] MAIN LAB Specimen Blood Performing Organization Address [facility] one Number MAIN LAB [address] [place] [address] * BASIC METABOLIC PANEL (03/17/2020 1:24 PM CDT) Sodium 147 137 - 147 MMOL/L [facility] MAIN LAB Potassium 3.9 3.5 - 5.1 MMOL/L [facility] MAIN LAB Chloride 114 (H) 98 - 110 MMOL/L [facility] MAIN LAB CO2 24 21 - 30 MMOL/L [facility] MAIN LAB Anion Gap 9 3 - 12 [facility] MAIN LAB Glucose 100 70 - 100 MG/DL [facility] MAIN LAB Blood Urea 39 (H) 7 - 25 MG/DL [facility] MAIN LAB Nitrogen Creatinine 1.32 (H) 0.4 - 1.24 MG/DL [facility] MAIN LAB Calcium 8.3 (L) 8.5 - 10.6 MG/DL [facility] MAIN LAB eGFR Non 55 (L) >60 mL/min [facility] MAIN LAB Comment: [place] The eGFR is not validated f or use in drug dosing adjustments. Continue to use estimated creatinine clearance per dosing reference text. Please contact the Clinical Pharmacist for questions. eGFR >60 >60 mL/min MAIN LAB [place] Comment: The eGFR is not validated for use in drug dosing adjustments. Continue to use estimated creatinine clearance per dosing reference text. Please contact the Clinical Pharmacist for questions. Specimen Blood Performing Organization Address [facility] one Number MAIN LAB [address] [place] [address] * BLOOD GASES, ARTERIAL (03/17/2020 8:50 AM CDT) pH-Arterial 7.47 (H) 7.35 - 7.45 K[facility] MAIN LAB pCO2-Arterial 32 (L) 35 - 45 MMHG [facility] MAIN LAB pO2-Arterial 102 (H) 80 - 100 MMHG MAIN LAB Base 0.2 MMOL/L MAIN LAB Excess-Arterial O2 Sat-Arterial 97.9 95 - 99 % [facility] MAIN LAB Bicarbonate-ART 24.6 21 - 28 MMOL/L [facility] MAIN LAB -Won Specimen Blood, arterial - Blood Performing Organization Address [facility]/Zipcode Ph one Number KU MAIN LAB [address] [place] [address] * PROCALCITONIN (03/17/2020 2:50 AM CDT) Procalcitonin 0.44 (H) <0.11 ng/mL [facility] MAIN LAB Specimen Performing Organization Address [facility] one Number MAIN LAB [address] [place] [address] * MAGNESIUM (03/17/2020 2:50 AM CDT) Magnesium 2.4 1.6 - 2.6 mg/dL [facility] MAIN LAB Specimen Blood Performing Organization Address [facility] one Number MAIN LAB [address] [place] [address] * COMPREHENSIVE METABOLIC PANEL (03/17/2020 2:50 AM CDT) Sodium 143 137 - 147 MMOL/L [...] >60 >60 mL/min [facility] MAIN LAB Comment: [place] The eGFR is not validated f or use in drug dosing adjustments. Continue to use estimated creatinine clearance per dosing reference text. Please contact the Clinical Pharmacist for questions. eGFR >60 >60 mL/min [facility] MAIN LAB [place] Comment: The eGFR is not validated for use in drug dosing adjustments. Continue to use estimated creatinine clearance per dosing reference text. Please contact the Clinical Pharmacist for questions. Specimen Blood Performing Organization Address City/[facility]/Zipcode Ph one Number KU MAIN LAB [address] [place] [address] * CBC AND DIFF (03/17/2020 2:50 AM [...] Ph one Number [facility] MAIN LAB [address] [place] [address] * CT ABD/PELV WO CONTRAST (03/16/2020 9:43 [...] on 03/16/2020 9:43 PM. Performing Organization Address [facility] one Number RAD RESULTS * VANCOMYCIN TIMED LEVEL (03/16/2020 8:07 PM CDT) Vancomycin 14.1 MCG/ML [facility] MAIN LAB Random Specimen Blood Performing Organization Address [facility] one Number MAIN LAB [address] [place] [address] * LACTIC ACID (BG - RAPID LACTATE) (03/16/2020 8:07 PM CDT) Lactic Acid,BG 1.7 0.5 - 2.0 MMOL/L [facility] MAIN LAB Specimen Blood Performing Organization Address [facility] one Number MAIN LAB [address] [place] [address] * URINALYSIS, MICROSCOPIC (03/16/2020 5:30 PM CDT) WBCs,UA 20-50 0 - 2 /HPF K[facility] MAIN LAB RBCs,UA PACKED 0 - 3 /HPF [facility] MAIN LAB Specimen Urine - Urine Performing Organization [facility] one Number MAIN LAB [address] [place] [address] * URINALYSIS DIPSTICK (03/16/2020 5:30 PM CDT) Color,UA YELLOW [facility] MAIN LAB Turbidity,UA CLEAR CLEAR-CLEAR [facility] MAIN LAB Specific 1.029 1.003 - 1.035 MAIN LAB [place]-Urine pH,UA 6.0 5.0 - 8.0 MAIN LAB [...] Specimen Urine - Urine Performing Organization Address City/[facility] one Number MAIN LAB [address] [place] [address] * TRIGLYCERIDE (03/16/2020 5:26 PM CDT) Triglycerides 145 <150 MG/DL MAIN LAB Specimen Performing Organization Address [facility] Ph one Number MAIN LAB [address] [place] [address] * LIPASE (03/16/2020 5:26 PM CDT) Lipase 4 (L) 11 - 82 U/L MAIN LAB Specimen Blood Performing Organization Address [facility] Ph one Number MAIN LAB [address] [place] [address] * BNP (B-TYPE NATRIURETIC PEPTI) (03/16/2020 5:26 PM CDT) B Type 645.0 (H) 0 - 100 PG/ML MAIN LAB Natriuretic Peptide Specimen Blood Performing Organization Address [facility] one Number MAIN LAB [address] [place] [address] * PHOSPHORUS (03/16/2020 5:26 PM CDT) Phosphorus 3.1 2.0 - 4.5 MG/DL MAIN LAB Specimen Blood Performing Organization Address [facility] one Number MAIN LAB [address] [place] [address] * MAGNESIUM (03/16/2020 5:26 PM CDT) Magnesium 2.3 1.6 - 2.6 mg/dL K[facility] MAIN LAB Specimen Blood Performing Organization Address [facility] Ph one Number KU MAIN LAB [address] [place] [address] * BLOOD GASES, ARTERIAL (03/16/2020 5:26 PM CDT) pH-Arterial 7.40 7.35 - 7.45 KU MAIN [...] Blood, arterial - Blood Performing Organization Address [facility] Ph one Number KU MAIN LAB [address] [place] [address] * COMPREHENSIVE METABOLIC PANEL (03/16/2020 5:26 PM CDT) Pathologist [facility] Sodium 141 137 - 147 MMOL/L KU [...] 30 MMOL/L K[facility] MAIN LAB ALT (SGPT) 16 7 - 56 U/L [facility] MAIN LAB Anion Gap 7 3 - 12 K[facility] MAIN LAB eGFR Non >60 >60 mL/min [facility] MAIN LAB Comment: [place] The eGFR is not validated f or use in drug dosing adjustments. Continue to use estimated creatinine clearance per dosing reference text. Please contact the Clinical Pharmacist for questions. eGFR >60 >60 mL/min K[facility] MAIN LAB [place] Comment: The eGFR is not validated for use in drug dosing adjustments. Continue to use estimated creatinine clearance per dosing reference text. Please contact the Clinical Pharmacist for questions. Specimen Blood Performing Organization Address City/[facility] Ph one Number [place] MAIN LAB [address] [place] [address] * PTT (APTT) (03/16/2020 5:26 PM CDT) APTT 20.7 (L) 24.0 - 36.5 SEC [facility] MAIN LAB Specimen Blood Performing Organization Address [facility] Ph one Number KU MAIN LAB [address] [place] [address] * PROTIME INR (PT) (03/16/2020 5:26 PM CDT) INR 1.3 (H) 0.8 - 1.2 [facility] MA[facility] Specimen Blood Performing Organization Address [facility] one Number MAIN LAB [address] [place] [address] * CBC AND DIFF (03/16/2020 5:26 PM CDT) White Blood 22.9 (H) 4.5 - 11.0 K/UL [facility] MA[facility] Cells RBC 4.41 4.4 - 5.5 M/UL [facility] Hemoglobin 12.2 (L) 13.5 - 16.5 GM/DL [facility] Hematocrit 36.5 (L) 40 - 50 % [facility] MCV 82.6 80 - 100 FL [facility] MCH 27.7 26 - 34 PG [facility] MAIN [facility] [...] Basophil Count Specimen Blood Performing Organization Address [facility] one Number [facility] MAIN [facility] [address] [place] [address] * CULTURE-BLOOD W/SENSITIVITY (03/16/2020 5:24 PM CDT) Battery Name BLOOD CULTURE [facility] Specimen BLOOD [facility] Description RIGHT RADIAL ARTERIAL LINE Special NONE [facility] Requests Culture NO GROWTH 5 DAYS [facility] Report Status FINAL [facility] 03/22/2020 Specimen Blood Performing Organization Address [facility] one Number [facility] MAIN [facility] [address] [place] [id number] * CULTURE-RESP,LOWER W/SENSITIVITY (03/16/2020 4:55 PM CDT) [...] 03/18/2020 Specimen Tracheal Aspirate Performing Organization Address [facility] one Number [facility] MAIN [facility] [address] [place] [address] * GRAM STAIN (03/16/2020 4:55 PM CDT) Battery Name GRAM STAIN [facility] Specimen TRACHEAL ASPIRATE [facility] Description Special NONE [facility] Requests Gram Stain LESS THAN 10/LPF [facility] NEUTROPHILS LESS THAN 10/LPF SQUAMOUS EPITHELIAL CELLS NO ORGANISMS SEEN Report Status FINAL [facility] 03/16/2020 Specimen Tracheal Aspirate Performing Organization Address [facility] one Number [facility] MAIN [facility] [address] [place] [address] * CULTURE-BLOOD W/SENSITIVITY (03/16/2020 3:26 PM CDT) Battery Name BLOOD CULTURE [facility] Specimen BLOOD [facility] Description RIGHT IJ RED LUMEN Special NONE [facility] Requests Culture POSITIVE SMEAR: [facility] GRAM POSITIVE COCCI RESEMBLING STAPHYLOCOCCI one bottle only CRITICAL VALUE CALLED TO AND READ BACK BY/TIME/TECH Ines hyman 170 03/17/20 by AM STAPHYLOCOCCUS, COAGULASE NEGATIVE , probable contamination. Susceptibility performed only by special request. Report Status FINAL MAIN LAB 03/22/2020 Specimen Blood Performing Organization Address City/State/Zipcode Ph one Number MAIN LAB [address] [place] [address] * ECG-SCAN (03/16/2020 12:00 AM CDT) Narrative [...] OUTSIDE COVID-19 LAB (SARS-CoV-2) Result Source COVID-19 [employer] Swab OTHER OUTSIDE (SARS-CoV-2) LAB COVID-19 NegativeComment: Via Sosa OTHER OU TSIDE (SARS-CoV-2) [place] LAB RNA [place] RNA OTHER OUTSIDE LAB Specimen Nasopharyngeal Swab - Nasopharyngeal Swab Narrative Performed At This result has an attachment that is n ot available. Performing Organization Address City/State/Zipcode Ph one Number OTHER OUTSIDE LAB documented in this encounter Visit Diagnoses Diagnosis Sepsis due to Escherichia coli with enc ephalopathy without septic shock (HCC) Chest pain on breathing Painful respiration Paroxysmal A-fib (HCC) Atrial fibrillation Type 2 NSTEMI (non-ST elevated myocardi al infarction) ([facility]) Acute myocardial infarction, subendocar dial infarction, episode of care unspecified Septic shock (HCC) Unspecified septicemia E. coli sepsis ([facility]) Other septicemia due to gram-negative o [...] Given 12 mg, Intravenous, ONCE, 1 dose, 03/19/20 at 1345 03/19/2020 12:52 PM CDT 6 mg adenosine (ADENOCARD) syringe 6 mg Given 6 mg, Intravenous, ONCE, 1 dose, 03/19/20 at 1345 03/18/2020 5:35 PM CDT 6 mg ADENOSINE 3 MG/ML IV SYRG (Cabinet Given Override) NOW, 1 dose, Wed03/18/20 at 1745, Created by sheilat override, Created by lisa montesinoside, 03/27/2020 8:37 AM CDT 50 mg aminophylline [...] 17-33 mL/hr, Intravenous, TITRATE DIRECTED , Starting Wed03/18/20 at 1745, Until Jenny 03/21/20 at 1451, [...] mg, 6 mL, Intravenous, ONCE, 1 dose, 03/20/20 at 1215, PROTECT FROM LIGHT, 03/21/2020 11:30 AM CDT 60 mg furosemide (LASIX) injection 60 mg Given 60 mg, 6 mL, Intravenous, ONCE, 1 dose, Jenny 03/21/20 at 1030, PROTECT FROM LIGHT, 03/28/2020 [...] 50 mcg, Oral, DAILY, First dose on 03/17/20 at 0700, Until Discontinued, Give 1 hour [...] mL, Intravenous, ONCE PRN, 1 dose, Starting Wed03/18/20 at 0712, Until Wed03/18/20 at 0717, For Procedure, A multi sensor operator may only administer Definity through a saline [...] Intravenous, at 200 mL/hr, ONCE, 1 dose, [place] 03/24/20 at 0215 polyethylene glycol 3350 (MIRALAX) [...] mEq, Per OG Tube, ONCE, 1 dose, 03/17/20 at 1615, Give with a meal or dilute oral solution with 4 oz of water , 03/20/2020 6:45 PM CDT 40 mEq potassium chloride SR (K-DUR) tablet 40 Given mEq 40 mEq, Oral, ONCE, 1 dose, 03/20/20 at 1800, - Tablet may be [...] mEq 40 mEq, Oral, ONCE, 1 dose, [facility] 03/21/20 at 0700, - Tablet may be [...] mEq 40 mEq, Oral, ONCE, 1 dose, [facility] 03/21/20 at 1915, - Tablet may be [...] DIRECTED , Starting 03/16/20 at 1700, Until Wed03/20/20 at 1456, Initial rate: 5 mcg/kg/min (5-50 [...] Given 25 mg, Oral, ONCE, 1 dose, [facility] 03/21/20 a t 1600 03/25/2020 8:22 PM CDT 50 mg QUEtiapine (SEROquel) tablet 50 mg Given 50 mg, Per NG tube, AT BEDTIME DAILY, First dose on Jenny 03/21/20 at 2100, Until Discontinued 50 mg Given [...] mg, Oral, EVERY 6 HOURS PRN, Starting Wed03/24/20 at 1359, Until 03/27/20 at 1009, Pain [...] HOURS, First dose (after last modification) on Wed03/17/20 at 0800, Until Discontinued, Note Pharmacokineti c Monitoring: Please record infusion start time (Action= Given) and stop jackie e (Action= Completed) of dose when blood levels are drawn., 1,500 mg 187 mL/hr Given - New Bag 03/18/2020 11:46 PM CDT 1,500 mg 187 mL/hr Given - New Bag 03/18/2020 7:59 AM CDT documented in this encounter
--- OUTSIDE RECORDS SUMMARY | 2020-04-06 18:41 | XMS REPORT | Encounter Summary ---
Author Author [facility] Organization [facility] Address Unknown Phone Unavailable Care Team Providers Care Electrotherapist Name Role Phone Sherman Spicer MD Unavailable Reyna Bond Unavailable Unavailable Indiana Bauer APRN PCP Unavailable Lenka Fuentes RN [phone] Unavailable Reason for Visit * Reason Comments Follow-up Phone Call Encounter Details Care Team Description Date Type Department Tsering Diehl, GORDO Follow-up Phone Call 03/25/2020 Telephone [facility] [address] [place] [address] Social History Date Tobacco Use [...] Telephone Encounter - Tsering Diehl, GORDO - 03/25/2020 4:20 PM CDT ----- Message from Mercy Carbajal LPN sent at 03/25/2020 1:16 PM CDT ----- Regarding: MPE- in hospital VM from patient on triage line. Said that he is in [facility] and would like MPE to come see him as soon as possible. He is on 8th floor, #[phone]. documented in this encounter Plan of Treatment [...]
--- OUTSIDE RECORDS SUMMARY | 2020-04-06 18:41 | XMS REPORT | Encounter Summary ---
Author Author [facility] Organization [facility] Address Unknown Phone Unavailable Care Team Providers Care Registered Public Health Nurse Name Role Phone Sherman Sipcer MD Unavailable Reyna Bond Unavailable Unavailable Indiana Bauer APRN PCP Unavailable Encounter Details Care Team Description Date Type Department 03/13/2020 [facility] [address] [address] Social History Date Tobacco Use [...] Miscellaneous Medical automatic 1 each 0 Supply [facility] blood pressure [...] Procedure Name Priority Date/Time Associated Diag nosis [facility] Routine 03/13/2020 12:10 AM CDT documented in this encounter Results * [facility] (03/13/2020 12:10 AM CDT) Specimen Narrative Performed At This order has been auto finalized and does not contain a result. documented in this encounter Visit Diagnoses Not on filedocumented in this encounter
--- OUTSIDE RECORDS SUMMARY | 2020-04-06 18:41 | XMS REPORT | Encounter Summary ---
Author Author [facility] Organization [facility] Address Unknown Phone Unavailable Care Team Providers Care Sweat Box Attendant Name Role Phone Sherman Spicer MD Unavailable Reyna Bond Unavailable Unavailable Indiana Bauer APRN PCP Unavailable Encounter Details Care Team Description Date Type Department 03/16/2020 [facility] [address] [address] Social History Date Tobacco Use [...] Miscellaneous Medical automatic 1 each 0 Supply [facility] blood pressure machine to monitor VS daily. [...] daily. Take with food. Follow up with hand straightener for dose adjustments 03/01/2020 03/27/2020 amiodarone (CORDARONE) Take two 266 [...]
--- OUTSIDE RECORDS SUMMARY | 2020-04-06 18:41 | XMS REPORT | Encounter Summary ---
Author Author [facility] Organization [facility] Address Unknown Phone Unavailable Care Team Providers Care Soil Conservation Aide Name Role Phone Sherman Spicer MD Unavailable Reyna Bond Unavailable Unavailable Indiana Bauer APRN PCP Unavailable Encounter Details Care Team Description Date Type Department 03/14/2020 [facility] [address] [address] Social History Date Tobacco Use [...] Miscellaneous Medical automatic 1 each 0 Supply [facility] blood pressure machine to monitor VS daily. [...]
--- OUTSIDE RECORDS SUMMARY | 2020-04-06 18:41 | XMS REPORT | Encounter Summary ---
Author Author [facility] Organization [facility] Address Unknown Phone Unavailable Care Team Providers Care Fire Alarm Operator Name Role Phone Sherman Spicer MD Unavailable [place], Reyna Unavailable Unavailable Indiana Bauer APRN PCP Unavailable Lenka Fuentes RN [phone] Unavailable Encounter Details Care Team Description Date Type Department Unknown, UnknownMD 03/15/2020 Orders Only The [address] [address] Social History Date Tobacco Use Types Packs/Day [...]
--- OUTSIDE RECORDS SUMMARY | 2020-04-06 18:41 | XMS REPORT | Encounter Summary ---
Author Author [facility] Organization [facility] Address Unknown Phone Unavailable Care Team Providers Care Franchise Sales Representative Name Role Phone Sherman Spicer MD Unavailable Reyna Bond Unavailable Unavailable Indiana Bauer APRN PCP Unavailable Lenka Fuentes RN [phone] Unavailable Reason for Referral * Consult, Test & Treat (Routine) Referred By Contact Referred To Contact Status Reason Specialty Diagnoses / Procedures Lev Wiggins MD [address] [facility] [address] [place] [address] New Request Diagnoses Atrial flutter with rapid ventricular response (HCC) P rocedures REQUEST FOR CARDIOLOGY APPOINTMENT Reason for Visit * Reason Comments Appointment Encounter Details Care Team Description Date Type Department Samia Garzon RN Appointment 03/21/2020 Telephone [facility] [address] [facility] [address] [place], [place] [id number] Social History Date Tobacco Use Types Packs/Day [...]
--- OUTSIDE RECORDS SUMMARY | 2020-04-06 18:41 | XMS REPORT | Encounter Summary ---
Author Author [facility] Organization [facility] Address Unknown Phone Unavailable Care Team Providers Care Container Finisher Name Role Phone Sherman Spicer MD Unavailable Reyna Bond Unavailable Unavailable Indiana Bauer APRN PCP Unavailable Encounter Details Care Team Description Date Type Department 03/13/2020 [facility] [address] [address] Social History Date Tobacco Use [...] Medical automatic 1 each 0 Supply [facility] blood pressure machine to monitor VS daily. [...]
--- OUTSIDE RECORDS SUMMARY | 2020-04-06 18:41 | XMS REPORT | Encounter Summary ---
Author Author [facility] Organization [facility] Address Unknown Phone Unavailable Care Team Providers Care Service Station Operator Name Role Phone Sherman Spicer MD Unavailable Reyna Bond Unavailable Unavailable Indiana Bauer APRN PCP Unavailable Reason for Visit * Auth/Cert Referred By Contact Referred To Contact Status Reason Specialty Diagnoses / Procedures Diagnoses E. coli sepsis (HCC) Septic Gallbladder Encounter Details Care Team Description Date Type Department Siva Oliveira MD [address] Orth[facility] Lvl [address] [place] [address] 03/16/2020 [facility] [address] [place] [address] Social History Date Tobacco Use Types [...] tablet by mouth at bedtime daily. 03[facility]01/2020 [facility] 1 each 0 [facility] blood pressure machine to [...] daily. Take with food. Follow up with outsole molder for dose adjustments 03/01/2020 03/27/2020 amiodarone (CORDARONE) [...] diatrizoate meglumine & sodium 66-10 % Given (-GASTROVIEW) oral solution 30 mL 30 mL, Per NG tube, ONCE, 1 dose, 03/16/20 at 2029 documented in this encounter
--- OUTSIDE RECORDS SUMMARY | 2020-04-06 18:41 | XMS REPORT | Encounter Summary ---
Author Author [facility] Organization [facility] Address Unknown Phone Unavailable Care Team Providers Care Photoengraving Etcher Name Role Phone Sherman Spicer MD Unavailable StaReyna hudson Unavailable Unavailable Indiana Bauer APRN PCP Unavailable Lenka Fuentes RN [phone] Unavailable Encounter Details Care Team Description Date [...]
--- OUTSIDE RECORDS SUMMARY | 2020-04-06 18:41 | XMS REPORT | Encounter Summary ---
Author Author [facility] Organization [facility] Address Unknown Phone Unavailable Care Team Providers Care Iron Molder Helper Name Role Phone Sherman Spicer MD Unavailable StaReyna hudson Unavailable Unavailable Indiana Bauer APRN PCP Unavailable Lenka Fuentes RN [phone] Unavailable Encounter Details Care Team Description Date Type Department Lenka Fuentes, GORDO 03/21/2020 Patient [facility] [address] [place] [address] Social History Date Tobacco Use Types Packs/Day [...] considerations as appropriate. Lenka Fuentes RN Office #[phone] documented in this encounter Plan of Treatment [...]
--- OUTSIDE RECORDS SUMMARY | 2020-04-06 18:41 | XMS REPORT | Encounter Summary ---
Author Author [facility] Organization [facility] Address Unknown Phone Unavailable Care Team Providers Care Plastic Surgery Nurse Name Role Phone Sherman Spicer MD Unavailable Reyna Bond Unavailable Unavailable Indiana Bauer APRN PCP Unavailable Encounter Details Care Team Description Date Type Department 03/13/2020 [facility] [address] [address] Social History Date Tobacco Use [...] Miscellaneous Medical automatic 1 each 0 Supply [facility] blood pressure machine to monitor VS daily. [...]
--- OUTSIDE RECORDS SUMMARY | 2020-04-06 18:41 | XMS REPORT | Encounter Summary ---
Author Author [facility] Organization [facility] Address Unknown Phone Unavailable Care Team Providers Care Trim Mechanic Name Role Phone Sheramn Spicer MD Unavailable Reyna Bond Unavailable Unavailable Indiana Bauer APRN PCP Unavailable Encounter Details Care Team Description Date Type Department 03/13/2020 [facility] [address] [address] Social History Date Tobacco Use [...] automatic 1 each 0 Supply [facility] blood pressure machine to monitor [...]
--- OUTSIDE RECORDS SUMMARY | 2020-04-06 18:41 | XMS REPORT | Encounter Summary ---
Author Author [facility] Organization [facility] Address Unknown Phone Unavailable Care Team Providers Care Flight Instructor Name Role Phone Sherman Spicer MD [...]
--- OUTSIDE RECORDS SUMMARY | 2020-04-06 18:41 | XMS REPORT | Encounter Summary ---
Author Author [facility] Organization [facility] Address Unknown Phone Unavailable Care Team Providers Care Site Leader Name Role Phone Sherman Spicer MD Unavailable Reyna Bond Unavailable Unavailable Indiana Bauer APRN PCP Unavailable Encounter Details Care Team Description Date Type Department 03/12/2020 [facility] [address] [address] Social History Date Tobacco Use [...] Miscellaneous Medical automatic 1 each 0 Supply [facility] blood pressure machine to monitor VS daily. [...]
--- OUTSIDE RECORDS SUMMARY | 2020-04-06 18:42 | XMS REPORT | Encounter Summary ---
Author Author [facility] Organization [facility] Address Unknown Phone Unavailable Care Team Providers Care Building Maintenance Engineer Name Role Phone Sherman Spicer MD Unavailable Reyna Bond Unavailable Unavailable Indiana Bauer APRN PCP Unavailable Encounter Details Care Team Description Date Type Department Ya Howard RN 03/05/2020 Telephone [facility] [address] [place] [address] Social History Date Tobacco Use [...] if he does not hear from Dr Emert's office * Telephone Encounter - Ya Howard RN - 03/05/2020 4:15 PM CDT ----- Message from Mercy Carbajal LPN sent at 03/05/2020 8:27 AM CDT ----- Regarding: MPE- med reaction VM from patient on triage line at 10:07pm last night. Said that the new medication is making his kidneys and belly hurt. Call him at #[phone] and said to keep trying if he [...]
--- OUTSIDE RECORDS SUMMARY | 2020-04-06 18:42 | XMS REPORT | Encounter Summary ---
Author Author [facility] Organization [facility] Address Unknown Phone Unavailable Care Team Providers Care Chemical Maker Name Role Phone Sherman Spicer MD [...] Take Medication at Right Time, Medication No Lnid, Right Day, Right Order, With Adherence Danilo Moseley N or Without Food Correctly documented as of this encounter Visit Diagnoses Not on filedocumented in this encounter
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
--- OUTSIDE RECORDS SUMMARY | 2020-04-06 18:42 | XMS REPORT | Encounter Summary ---
Author Author [facility] Organization [facility] Address Unknown Phone Unavailable Care Team Providers Care Chief Of Pediatric Urology Name Role Phone Sherman Spicer MD Unavailable [...] c/b - line disconnected) 03/12/2020 Telephone The [facility] [address] [place] [address] Social History Date Tobacco Use [...] Telephone Encounter - Ya Howard, RN - 03/12/2020 2:48 PM CDT attempted to [...]
--- OUTSIDE RECORDS SUMMARY | 2020-04-06 18:42 | XMS REPORT | Encounter Summary ---
Author Author [facility] Organization [facility] Address Unknown Phone Unavailable Care Team Providers Care Restaurant Crew Member Name Role Phone Sherman Spicer MD Unavailable Reyna Bond Unavailable Unavailable Indiana Bauer APRN PCP Unavailable Encounter Details Care Team Description Date Type Department 03/11/2020 [facility] [address] [address] Social History Date Tobacco Use [...] Miscellaneous Medical automatic 1 each 0 Supply [facility] blood pressure machine to monitor VS daily. [...]
--- OUTSIDE RECORDS SUMMARY | 2020-04-06 18:42 | XMS REPORT | Encounter Summary ---
Author Author [facility] Organization [facility] Address Unknown Phone Unavailable Care Team Providers Care Corrosion Control Technician Name Role Phone Sherman Spicer MD Unavailable Reyna Bond Unavailable Unavailable Indiana Bauer APRN PCP Unavailable Reason for Visit * Reason Comments Medication Question pt is on HC9 Encounter Details Care Team Description Date Type Department Brandi Wolfe RN Medication Question (pt is on HC9) 02/23/2020 Telephone The [address] [place] [address] Social History Date Tobacco Use Types Packs/Day [...] sick. He would like call back at #[phone]. documented in this encounter Plan of Treatment Not on filedocumented as of this encounter Goals Goal Patient Associated Recent Progress Patient-Stat Aut hor Goal Type Problems ed? GOAL General No Tana Saldiavr, RN Note: Get stronger Take Medication at Right Time, Medication No Lind, Right Day, Right Order, With Adherence Danilo Moseley N or Without Food Correctly documented as of this encounter Visit Diagnoses Not on filedocumented in this encounter
--- OUTSIDE RECORDS SUMMARY | 2020-04-06 18:42 | XMS REPORT | Encounter Summary ---
Author Author [facility] Organization [facility] Address Unknown Phone Unavailable Care Team Providers Care Promotional Advertising Assistant Name Role Phone Sherman Spicer MD Unavailable StalcReyna feng Unavailable Unavailable Indiana Bauer APRN PCP Unavailable Reason for Visit * Reason Comments Tachycardia multiple attempts to contac t, no answer, he c/b but unable to return call Encounter Details Care Team Description Date Type Department Cecy He RN Tachycardia (multiple attempts to contac t, no answer, he c/b but unable to return call) 02/28/2020 Telephone The [facility] [address] [place] [address] Social History Date Tobacco Use Types Packs/Day [...] Telephone Encounter - Ya Howard, RN - 02/29/2020 4:24 PM CDT no [...] Said to call him in am at #[phone]. documented in this encounter Plan of Treatment [...]
--- OUTSIDE RECORDS SUMMARY | 2020-04-06 18:42 | XMS REPORT | Encounter Summary ---
Author Author [facility] Organization [facility] Address Unknown Phone Unavailable Care Team Providers Care Product Introduction Manager Name Role Phone Sherman Spicer MD Unavailable Reyna Bond Unavailable Unavailable Indiana Bauer APRN PCP Unavailable Reason for Visit * Reason Comments Follow-up Phone Call Encounter Details Care Team Description Date Type Department Tsering Diehl, RN Follow-up Phone Call 02/21/2020 Telephone The [address] [phone] Social History Date Tobacco Use Types Packs/Day [...] would like MPE approval. He is at #[phone]. documented in this encounter Plan of Treatment [...]
--- OUTSIDE RECORDS SUMMARY | 2020-04-06 18:42 | XMS REPORT | Encounter Summary ---
Author Author [facility] Organization [facility] Address Unknown Phone Unavailable Care Team Providers Care Air [employer] Crewmember Name Role Phone Sherman Spicer MD Unavailable Reyna Bond Unavailable Unavailable Indiana Bauer APRN PCP Unavailable Encounter Details Care Team Description Date Type Department 03/11/2020 [facility] [address] [address] Social History Date Tobacco Use [...]
--- OUTSIDE RECORDS SUMMARY | 2020-04-06 18:42 | XMS REPORT | Encounter Summary ---
Author Author [facility] Organization [facility] Address Unknown Phone Unavailable Care Team Providers Care Bead Builder Name Role Phone Sherman Spicer MD Unavailable Reyna Bond Unavailable Unavailable Indiana Bauer APRN PCP Unavailable Reason for Visit * Reason Comments Test/procedure PFT needed. Encounter Details Care Team Description Date Type Department Patrick Constantino RN Test/procedure (PFT needed.) 03/11/2020 Telephone The [address] [place], [place] [id number] Social History Date Tobacco Use Types Packs/Day [...] amio start. Pt given PFT scheduling number [phone] and advised to complete this in the [...]
--- OUTSIDE RECORDS SUMMARY | 2020-04-06 18:42 | XMS REPORT | Encounter Summary ---
Author Author [facility] Organization [facility] Address Unknown Phone Unavailable Care Team Providers Care Mail Sorter Name Role Phone Sherman Spicer MD Unavailable Reyna Bond Unavailable Unavailable Indiana Bauer APRN PCP Unavailable Reason for Visit * Reason Comments Follow Up unsure of reason of call, L M to c/b Encounter Details Care Team Description Date Type Department Ya Howard RN Follow Up (unsure of reason of call, LM to c/b) 03/11/2020 Telephone The [facility] [address] [place] [id number] Social History Date Tobacco Use Types Packs/Day [...] out do same day. Call him at #[phone]. documented in this encounter Plan of Treatment [...]
--- OUTSIDE RECORDS SUMMARY | 2020-04-06 18:42 | XMS REPORT | Encounter Summary ---
Author Author [facility] Organization [facility] Address Unknown Phone Unavailable Care Team Providers Care Clinical Research Tech Name Role Phone Sherman Spicer MD Unavailable Reyna Bond Unavailable Unavailable Indiana Bauer APRN PCP Unavailable Encounter Details Care Team Description Date Type Department Ya Howard RN 03/06/[address] [facility] [address] [place] [address] Social History Date Tobacco Use [...] to pt and LVM. Pt advised per MPBraden OV note on 03/01 to check BP [...]
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
--- OUTSIDE RECORDS SUMMARY | 2020-04-06 18:43 | XMS REPORT | Encounter Summary ---
Author Author [facility] Organization [facility] Address Unknown Phone Unavailable Care Team Providers Care Remittance Clerk Name Role Phone Sherman Spicer MD Unavailable Reyna Bond Unavailable Unavailable Indiana Bauer APRN PCP Unavailable Reason for Visit * Reason Comments Follow-up Phone Call Encounter Details Care Team Description Date Type Department Tsering Diehl, GORDO Follow-up Phone Call 02/05/[address] [id number] Social History Date Tobacco Use Types Packs/Day [...] was in doctors office. Call him at #[phone]. documented in this encounter Plan of Treatment [...]
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
--- OUTSIDE RECORDS SUMMARY | 2020-04-06 18:43 | XMS REPORT | Encounter Summary ---
Author Author [facility] Organization [facility] Address Unknown Phone Unavailable Care Team Providers Care Desizing Machine Back Tender Name Role Phone Sherman Spicer MD Unavailable Reyna Bond Unavailable Unavailable Indiana Bauer APRN PCP Unavailable Encounter Details Care Team Description Date Type Department 02/20/2020 [facility] [address] [address] Social History Date Tobacco Use [...]
--- OUTSIDE RECORDS SUMMARY | 2020-04-06 18:43 | XMS REPORT | Encounter Summary ---
Author Author [facility] Organization [facility] Address Unknown Phone Unavailable Care Team Providers Care Manager Social Media Name Role Phone Sherman Spicer MD Unavailable [...]
--- OUTSIDE RECORDS SUMMARY | 2020-04-06 18:43 | XMS REPORT | Encounter Summary ---
Author Author [facility] Organization [facility] Address Unknown Phone Unavailable Care Team Providers Care Work And Family Life Consultant Name Role Phone Sherman Spicer MD Unavailable Stalcup, Reyna Unavailable Unavailable Indiana Bauer APRN PCP Unavailable Reason for Visit * Reason Comments Tachycardia Encounter Details Care Team Description Date Type Department Patrick Constantino RN Tachycardia 01/24/2020 Telephone [facility] [address] [place] [address] Social History Date Tobacco Use [...] nothing that he needs to go to [facility] for. His HR is up to 110 to 116, is that too high. Call him at #[phone]. documented in this encounter Plan of Treatment [...]
--- OUTSIDE RECORDS SUMMARY | 2020-04-06 18:43 | XMS REPORT | Encounter Summary ---
Author Author [facility] Organization [facility] Address Unknown Phone Unavailable Care Team Providers Care Cda Teacher Name Role Phone Sherman Spicer MD Unavailable StaReyna hudson Unavailable Unavailable Indiana Bauer APRN PCP Unavailable Reason for Visit * Reason Comments Other Encounter Details Care Team Description Date Type Department Brandi Wolfe, RN Other 02/06/2020 Telephone The [address] [place] [address] Social History Date Tobacco Use Types [...] I'm doing is sleeping. He is at #[phone]. documented in this encounter Plan of Treatment [...]
--- OUTSIDE RECORDS SUMMARY | 2020-04-06 18:43 | XMS REPORT | Encounter Summary ---
Author Author [facility] Organization [facility] Address Unknown Phone Unavailable Care Team Providers Care Executive Sales Assistant Name Role Phone Sherman Spicer MD [...]
--- OUTSIDE RECORDS SUMMARY | 2020-04-06 18:43 | XMS REPORT | Encounter Summary ---
Author Author [facility] Organization [facility] Address Unknown Phone Unavailable Care Team Providers Care Human Service Worker Name Role Phone Sherman Spicer MD Unavailable Reyna Bond Unavailable Unavailable Indiana Bauer APRN PCP Unavailable Reason for Visit * Reason Comments Anticoagulation Eliquis hold Encounter Details Care Team Description Date Type Department Noemi Hernandez RN Anticoagulation (Eliquis hold ) 02/01/2020 Telephone The [facility] [address] [place] [address] Social History Date Tobacco Use [...] Telephone Encounter - Ya Howard, GORDO - 02/02/2020 3:[address] [...] of mesenteric thrombosis and pulm onary embolism. [id number] score of1:Hypertension He was last see in [...] if so, how long? Call him at #[phone]. documented in this encounter Plan of Treatment [...]
--- OUTSIDE RECORDS SUMMARY | 2020-04-06 18:44 | XMS REPORT | Encounter Summary ---
Author Author [facility] Organization [facility] Address Unknown Phone Unavailable Care Team Providers Care Motor Inspection Mechanic Name Role Phone Sherman Spicer MD Unavailable Reyna Bond Unavailable Unavailable Indiana Bauer APRN PCP Unavailable Encounter Details Care Team Description Date Type Department 01/17/2020 [facility] [address] [address] Social History Date Tobacco Use [...] stomach. 02/02/2020 vit A-vit Take 2 0 T-gelxgz-fmkx-copper tablets by (JWJY-LYGJ-DETK(VIT mouth daily. A,C-BIOTIN)) 2,500 unit-100 mg-2,500 mcg [...]
--- OUTSIDE RECORDS SUMMARY | 2020-04-06 18:44 | XMS REPORT | Encounter Summary ---
Author Author [facility] Organization [facility] Address Unknown Phone Unavailable Care Team Providers Care Supervisor Mapping Name Role Phone Sherman Spicer MD Unavailable Reyna Bond Unavailable Unavailable Indiana Bauer APRN PCP Unavailable Reason for Visit * Reason Comments Follow-up Phone Call returned call, lm to c/b Encounter Details Care Team Description Date Type Department Ya Howard RN Follow-up Phone Call (returned call, to c/b) 01/05/[address] [place] [address] Social History Date Tobacco Use Types Packs/Day [...] has a heart question. Call him at #[phone]. documented in this encounter Plan of Treatment [...]
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
--- OUTSIDE RECORDS SUMMARY | 2020-04-06 18:44 | XMS REPORT | Encounter Summary ---
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 Clinical Pharmacist for questions. eGFR >60 >60 mL/min [facility] MAIN LAB Gambian Comment: The eGFR is not validated for use in drug dosing adjustments. Continue to use estimated creatinine clearance per dosing reference text. Please contact the Clinical Pharmacist for questions. Specimen Blood Performing Organization Address City/State/Zipcode Ph one Number KU MAIN LAB [address] [place] [address] * CBC AND DIFF (01/20/2020 4:03 AM [...] Basophil Count Specimen Blood Performing Organization Address [facility] one Number KU MAIN LAB [address] [place] [address] * PROTIME INR (PT) (01/19/2020 4:21 AM CDT) INR 1.2 0.8 - 1.2 [facility] MAIN LAB Specimen Blood Performing Organization Address [facility] one Number KU MAIN LAB [address] [place] [address] * MAGNESIUM (01/19/2020 4:21 AM CDT) Magnesium 2.0 1.6 - 2.6 mg/dL K[facility] MAIN LAB Specimen Blood Performing Organization Address [facility] one Number KU MAIN LAB [address] [place] [address] * COMPREHENSIVE METABOLIC PANEL (01/19/2020 4:21 AM [...] >60 >60 mL/min [facility] MAIN LAB Comment: [place]ian The eGFR is not validated f or use in drug dosing adjustments. Continue to use estimated creatinine clearance per dosing reference text. Please contact the Clinical Pharmacist for questions. eGFR >60 >60 mL/min [facility] MAIN LAB Gambian Comment: The eGFR is not validated for use in drug dosing adjustments. Continue to use estimated creatinine clearance per dosing reference text. Please contact the Clinical Pharmacist for questions. Specimen Blood Performing Organization Address City/[facility] Ph one Number [facility] MAIN LAB [address] [place] [address] * CBC AND DIFF (01/19/2020 4:21 AM [...] Basophil Count Specimen Blood Performing Organization Address City/[facility] Ph one Number ACTRINA MAIN LAB [address] [place] [phone] * POC GLUCOSE (01/18/2020 8:45 PM CDT) Glucose, POC 94 70 - 100 MG/DL [facility] MAIN LAB Specimen Performing Organization Address City/[facility] Ph one Number [place] MAIN LAB [address] [place] [phone] * 2D + DOPPLER ECHO (01/18/2020 9:49 [...] 34 OTHER OUTSIDE Index LAB Cardiology Siemens [id number] OTHER OUTSIDE Ultrasound LAB Machine Left Ventricle [...] 2018, EF slightly improved. Performing Organization Address [facility] one Number OTHER OUTSIDE LAB * TROPONIN-I (01/18/2020 6:03 AM CDT) Pathologist [facility] Troponin-I 0.08 (H) 0.0 - 0.05 NG/ML MAIN LAB Specimen Blood Performing Organization Address [facility] Ph one Number MAIN LAB [address] [place] [address] * UA REFLEX CULTURE LABEL (01/18/2020 3:50 AM CDT) Pathologist [facility] UA Reflex Criteria for reflex to culture [facility] LAB Culture are WBC>10, Positive Nitrit e, and/or >=+1 leukocytes. If quantity is not sufficient, an addendum will follow. Specimen Urine Performing Organization Address [facility] Ph one Number MAIN LAB [address] [place] [address] * URINALYSIS MICROSCOPIC REFLEX TO CULTURE (01/18/2020 3:50 AM CDT) WBCs,UA 0-2 0 - 2 /HPF MAIN LAB RBCs,UA 0-2 0 - 3 /HPF MAIN LAB Comment,UA Criteria for reflex to culture [facility] N LAB are WBC>10, Positive Nitrite, and/or >=+1 leukocytes. If quantity is not sufficient, an addendum will follow. MucousUA 2+ MAIN LAB Specimen Urine Performing Organization Address [facility] Ph one Number MAIN LAB [address] [place] [address] * URINALYSIS DIPSTICK REFLEX TO CULTURE (01/18/2020 3:50 AM CDT) Color,UA YELLOW [facility] MAIN LAB Turbidity,UA CLEAR CLEAR-CLEAR [facility] MAIN LAB Specific 1.019 1.003 - 1.035 [facility] MAIN LAB [place]-Urine pH,UA 5.0 5.0 - 8.0 K[facility] MAIN [...] Acid, UA Specimen Urine Performing Organization Address [facility] one Number MAIN LAB [address] [place] [address] * LIPID PROFILE (01/18/2020 3:40 AM CDT) [...] than 130 mg/dL. Specimen Performing Organization Address [facility] Ph one Number MAIN LAB [address] [place] [address] * MAGNESIUM (01/18/2020 3:40 AM CDT) Magnesium 2.1 1.6 - 2.6 mg/dL MAIN LAB Specimen Blood Performing Organization Address [facility] Ph one Number MAIN LAB [address] [place] [address] * COMPREHENSIVE METABOLIC PANEL (01/18/2020 3:40 AM [...] >60 >60 mL/min [facility] MAIN LAB Comment: [place]ian The eGFR is not validated f or use in drug dosing adjustments. Continue to use estimated creatinine clearance per dosing reference text. Please contact the Clinical Pharmacist for questions. eGFR >60 >60 mL/min [facility] MAIN LAB Gambian Comment: The eGFR is not validated for use in drug dosing adjustments. Continue to use estimated creatinine clearance per dosing reference text. Please contact the Clinical Pharmacist for questions. Specimen Blood Performing Organization Address City/State/Zipcode Ph one Number [facility] MAIN LAB [address] [place] [address] * CBC AND DIFF (01/18/2020 3:40 AM [...] Count Absolute 0.02 0 - 0.20 K/UL [facility] MAIN LAB Basophil Count Specimen Blood Performing Organization Address City/[facility] Ph one Number MAIN LAB [address] [place] [address] * TROPONIN-I (01/18/2020 2:05 AM CDT) Troponin-I 0.10 (H) 0.0 - 0.05 NG/ML MAIN LAB Specimen Blood Performing Organization Address [facility] one Number MAIN LAB [address] [place] [address] * HEMOGLOBIN A1C (01/18/2020 12:17 AM CDT) Hemoglobin A1C 5.6 4.0 - 6.0 % MAIN LAB Comment: The ADA recommends that most patients with type 1 and type 2 diabetes maintain an A1c level <7%. Specimen Blood Performing Organization Address City/[facility] Ph one Number MAIN LAB [address] [place] [address] * TROPONIN-I (01/18/2020 12:00 AM CDT) Troponin-I 0.10 (H) 0.0 - 0.05 NG/ML MAIN LAB Specimen Blood Performing Organization Address [facility] Ph one Number MAIN LAB [address] [place] [address] * CHEST 2 VIEWS (01/17/2020 11:22 PM [...] on 01/18/2020 7:00 AM. Performing Organization Address [facility] one Number KU RAD RESULTS * TSH WITH FREE T4 REFLEX (01/17/2020 10:50 PM CDT) TSH 4.61 0.35 - 5.00 MCU/ML [facility] MAIN LAB Specimen Blood Performing Organization Address [facility] Ph one Number MAIN LAB [address] [place] [address] * TROPONIN-I (01/17/2020 10:50 PM CDT) Troponin-I 0.10 (H) 0.0 - 0.05 NG/ML [facility] MAIN LAB Specimen Blood Performing Organization Address [facility] Ph one Number MAIN LAB [address] [place] [address] * BNP (B-TYPE NATRIURETIC PEPTI) (01/17/2020 10:50 PM CDT) B Type 292.0 (H) 0 - 100 PG/ML [facility] MAIN LAB Natriuretic Peptide Specimen Blood Performing Organization Address [facility] one Number [facility] MAIN LAB [address] [place] [address] * PHOSPHORUS (01/17/2020 10:50 PM CDT) Phosphorus 3.2 2.0 - 4.5 MG/DL [facility] MAIN LAB Specimen Blood Performing Organization Address [facility] one Number [facility] MAIN LAB [address] [place] [address] * MAGNESIUM (01/17/2020 10:50 PM CDT) Magnesium 2.1 1.6 - 2.6 mg/dL [facility] MAIN LAB Specimen Blood Performing Organization Address [facility] one Number [facility] MAIN LAB [address] [place] [address] * COMPREHENSIVE METABOLIC PANEL (01/17/2020 10:50 PM [...] >60 >60 mL/min [facility] MAIN LAB Comment: [place]ian The eGFR is not validated f or use in drug dosing adjustments. Continue to use estimated creatinine clearance per dosing reference text. Please contact the Clinical Pharmacist for questions. eGFR >60 >60 mL/min [facility] MAIN LAB Gambian Comment: The eGFR is not validated for use in drug dosing adjustments. Continue to use estimated creatinine clearance per dosing reference text. Please contact the Clinical Pharmacist for questions. Specimen Blood Performing Organization Address [facility] one Number [facility] MAIN LAB [address] [place] [address] * PTT (APTT) (01/17/2020 10:50 PM CDT) APTT 31.0 24.0 - 36.5 SEC MAIN LAB Specimen Blood Performing Organization Address [facility] one Number [facility] MAIN LAB [address] [place] [address] * PROTIME INR (PT) (01/17/2020 10:50 PM CDT) INR 1.0 0.8 - 1.2 MAIN LAB Specimen Blood Performing Organization Address [facility] one Number MAIN LAB [address] [place] [address] * CBC AND DIFF (01/17/2020 10:50 PM [...] Basophil Count Specimen Blood Performing Organization Address City/State/[facility] Ph one Number MAIN LAB [address] [place] [address] * TELEMETRY STRIPS-SCAN (01/17/2020 12:00 AM CDT) [...] Atrial flutter with rapid ventricular r esponse ([facility]) Atrial flutter documented in this encounter Administered [...] Oral, TWICE DAILY, First dose on Jenny 4/30/20 at 0600, Until Discontinued , NOTE: This [...] on eMAR (include date & time). Notify entry level sales associate prior to giving next dose if: QTc increase by >15% or to >500 msec, or >550 msec in patients with ventricular conduction abnormalities or ventricular pacing. , - Two hours after all subsequent doses: record QTc on eMAR (include date & time). Notify entry level sales associate prior to giving next dose if: QTc [...] on eMAR (include date & time). Notify entry level sales associate prior to giving next dose if: QTc increase by >15% or to >500 msec, or >550 msec in patients with ventricular conduction abnormalities or ventricular pacing. , - Two hours after all subsequent doses: record QTc on Sybil R (include date & time). Notify entry level sales associate prior to giving next dose if: QTc [...] on eMAR (include date & time). Notify entry level sales associate prior to giving next dose if: QTc increase by >15% or to >500 msec, or >550 msec in patients with ventricular conduction abnormalities or ventricular pacing. , - Two hours after all subsequent doses: record QTc on eMAR (include date & time). Notify entry level sales associate prior to giving next dose if: QTc [...] on eMAR (include date & time). Notify entry level sales associate prior to giving next dose if: QTc increase by >15% or to >500 msec, or >550 msec in patients with ventricular conduction abnormalities or ventricular pacing. , - Two hours after all subsequent doses: record QTc on Sybil R (include date & time). Notify entry level sales associate prior to giving next dose if: QTc [...] mEq 40 mEq, Oral, ONCE, 1 dose, [place] 01/21/20 at 0630, - Tablet may be [...] place. Please verify patch check findings summer pritchard this MAR entry., Leg, Lower Left Patch/Topical Verified 01/21/2020 9:07 PM CDT Leg, Upper Left Patch/Topical Verified 01/21/2020 9:25 AM CDT documented in this encounter
--- OUTSIDE RECORDS SUMMARY | 2020-04-06 18:44 | XMS REPORT | Encounter Summary ---
Author Author [facility] Organization [facility] Address Unknown Phone Unavailable Care Team Providers Care Master Control Technician Name Role Phone Sherman Spicer MD Unavailable Reyna Bond Unavailable Unavailable Indiana Bauer APRN PCP Unavailable Reason for Visit * Reason Comments Follow Up Pt requested MPE to see chepe in hospital room. EP consulted, RRR rounding today. Encounter Details Care Team Description Date Type Department Patrick Constantino RN Follow Up (Pt requested MPE to see chepe i n hospital room. EP consulted, RRR rounding today.) 01/18/2020 Telephone [facility] [address] [place] [address] Social History Date Tobacco Use [...] the phone . * Telephone Encounter - Patrikc Constantino RN - 01/18/2020 11:32 AM CDT ----- Message from Mercy Carbajal LPN sent at 01/18/2020 10:41 AM CDT ----- Regarding: MPE- in hospital VM from patient on triage line. He was taken to last night with HR 160-190. He is in room 521 and would like MPE to come by and see him. He is at #[phone]. documented in this encounter Plan of Treatment [...]
--- OUTSIDE RECORDS SUMMARY | 2020-04-06 18:44 | XMS REPORT | Encounter Summary ---
Author Author [facility] Organization [facility] Address Unknown Phone Unavailable Care Team Providers Care Dicer Operator Name Role Phone Sherman Spicer MD Unavailable Reyna Bond Unavailable Unavailable Indiana Bauer APRN PCP Unavailable Reason for Visit * Reason Comments Other Cardiac Rehab Referral Encounter Details Care Team Description Date Type Department Rafia Snyder RN Other (Cardiac Rehab Referral) 11/07/2019 Telephone [facility] [address] [place], [place] [id number] Social History Date Tobacco Use Types Packs/Day [...] Rafia Snyder RN - 11/07/2019 4:41 PM STONE GLUER RN verifying that patient qualifies for cardiac rehab before calling patient dede k. Patient can also call insurance to see if he would qualify for cardiac rehab. RN called provided call back number ([phone]) and was able to LVM informing patient of the above. RN left call back number in message. Will remain availab leZarina Jackson RN. ----- Message ----- From: Mercy Carbajal LPN Sent: 11/06/2019 8:18 AM STONE GLUER To: Cvm Nurse Yousif Subject: MPE- referral VM from patient on triage line Wednesday at 6:10pm. He wanted to know if we had chance to see if MPE would do the heart rehab referr al for him. Call back at # [phone]. 2019 1337 - RN returning call to patient to inform him that he would need t o call rehab center first to see if he qualifies for cardiac rehab. RN attempted to contact patient twice ([phone] both times and both times received the p rompt that the subscriber is no longer in service. Will remain available. Arturo meeks RN. MPE- RTC Received: Today Call patient Message Contents Mercy Carbajal LPN P Cvm Nurse Yousif VM from patient on triage line at 5:48pm yesterday returning our call. Should he call Rehab center or do we need to send referral first? Call him back at # [phone]. E GLUER documented in this encounter Plan of Treatment [...]
--- OUTSIDE RECORDS SUMMARY | 2020-04-06 18:44 | XMS REPORT | Encounter Summary ---
Author Author [facility] Organization [facility] Address Unknown Phone Unavailable Care Team Providers Care Fuel Cell Builder Name Role Phone Sherman Spicer MD [...]
--- OUTSIDE RECORDS SUMMARY | 2020-04-06 18:44 | XMS REPORT | Encounter Summary ---
Author Author [facility] Organization [facility] Address Unknown Phone Unavailable Care Team Providers Care Basin Operator Name Role Phone Sherman Spicer MD Unavailable Reyna Bond Unavailable Unavailable Indiana Bauer APRN PCP Unavailable Reason for Visit * Reason Comments Follow Up left before being seen 10/16 Encounter Details Care Team Description Date Type Department Rafia Snyder RN Follow Up (left before being seen 020) 10/18/[address] [place] [address] Social History Date Tobacco Use Types Packs/Day [...] Rafia Snyder RN - 10/30/2019 12:59 PM REELING MACHINE OPERATOR RN reaching out to patient [...] inform patient that patient can go to [facility] and usually they have a blood [...] female pts as this is sponsored by [employer] [facility]. Unfortunately he will not qualify for it. Digital BP m onitors range from $50-90. I am not aware of a company that sells refurbished BP either. This is not identified as a DME so unfortunately, insurance will not co oziel this. Regarding cardiac rehab, I reviewed his history but I didn't see a qualifying dx for cardiac rehab. No recent OR, stents, valve repairs, or EF <35. Let me know if you have any questions. Thank you, -AL Routing comment You Constantine Perry RN 3 days ago Do we know where a patient could get a discounted or free blood pressure cuff to use at home? Routing comment ING MACHINE OPERATOR * Addendum Note - Alejandra Greene RN - 10/26/2019 10:30 AM REELING MACHINE OPERATOR Addended by: ALEJANDRA GREENE on: 10/26/2019 10:30 AM Modules accepted: Orders ING MACHINE OPERATOR * Telephone Encounter - Alejandra Greene RN - 10/26/2019 10:04 AM REELING MACHINE OPERATOR MPE- monitor Received: Today Call patient Message Contents Mercy Carbajal LPN P Cvm Nurse Yousif NEGRETE from patient on triage line at 4:49pm yesterday. Said that we were going to try and get b/p and pulse monitor for him. Any luck in finding them? He is at # [phone]. 10/26/2019 10:04 AM: Pt is asking for a referral to cardiac rehab at [facility]. I informed him that there are [...] Fahad. I li stened to his frustrations. ING MACHINE OPERATOR * Telephone Encounter - Rafia Snyder RN - 10/18/2019 1:34 PM REELING MACHINE OPERATOR RN called number listed in chart for patient ([phone]) and mobile number li sted for son of patient ([place]ota [phone]) were both disconnected. RN attempt ed to call home number listed for son (Kota [phone]) and that number was also disconnected. RN called [facility] and spoke with GORDO Og wh o stated that patient is on the schedule for procedure (full mouth extraction) o n 10/25/2019. RN informed Lenka that patient did not necessarily need to be seen b y MPE before procedure but that RN needed to speak with patient. Lenka provided phone number for the patient that RN had already attempted ([phone]) which is disconnected. RN to send letter to patient requesting that he contact our off ice SONAM to discuss potential discontinuation of Eliquis and possibly initiation of Lisinopril. Lenka was provided EP burring wheel operator Line phone number and had no fur ther questions at this time. RN will send no contact letter to patient address o n file. Will remain available. GORDO Jackson. ----- Message from Cecy He RN sent at 10/17/2019 7:29 AM REELING MACHINE OPERATOR ----- Regarding: call patient? Per [...] NEGRETE on triage line from Lenka with [facility] # [phone]. Said that they are just now going to do surgery and had CC from us but patient t old them that he had test with dye. Anesthesia would like results of test and new CC faxed to them at # [phone] . Said that they had faxed form to us on 10-10-19. 10/18/2019 1434 - RN called phone number provided by GORDO Og with [facility]. Phone number provided for patient was [phone]. RN was able to s peak with [...] cardiac authorization/recommendation (clearance) and will fax to [facility]ON[facility]. Will remain available. GORDO Jackson. E- RTC for Rafia Received: Today Message Contents Mercy Carbajal LPN P Cvm Nurse Ep PENELOPE from Lenka with [facility] # [phone] returning our call. Said that they have phone # [phone] for patient and she called and got VM. She left message that we are trying to get a hold of him. ING MACHINE OPERATOR documented in this encounter Plan [...]
--- OUTSIDE RECORDS SUMMARY | 2020-04-06 18:45 | XMS REPORT | Encounter Summary ---
Author Author [facility] Organization [facility] Address Unknown Phone Unavailable Care Team Providers Care Rn Coronary Care Unit Name Role Phone Sherman Spicer MD Unavailable Reyna Bond Unavailable Unavailable Indiana Bauer APRN PCP Unavailable Reason for Referral * CTA Procedure (Routine) Referred By Contact Referred To Contact Status Reason Specialty Diagnoses / Procedures Kelby Rodriguez MD [address] [address] New Request Radiology Diagnoses S/P ablation of atrial fibrillation Paroxysmal atrial fibrillation (HCC) Essential hypertension Acute pericarditis, unspecified type P rocedures CT CARDIAC STRUCTURE WO/W CONT * CTA Procedure (Routine) Referred By Contact Referred To Contact Status Reason Specialty Diagnoses / Procedures Kelby Rodriguez MD [address] [address] New Request Radiology Diagnoses S/P ablation of atrial fibrillation Paroxysmal atrial fibrillation (HCC) Essential hypertension Acute pericarditis, unspecified type P rocedures CT LMTD CHEST W CARDIAC Encounter Details Care Team Description Date Type Department Ya Howard RN 10/11/2019 Telephone [facility] [address] [place] [id number] Social History Date Tobacco Use Types Packs/Day [...] Rafia Snyder RN - 10/12/2019 2:48 PM ACCOUNTS RECEIVABLE CLERK Addended by: RAFIA SNYDER on: 10/12/2019 02:48 PM Modules accepted: Orders UNTS RECEIVABLE CLERK * Telephone Encounter - Rafia Snyder RN - 10/12/2019 2:46 PM ACCOUNTS RECEIVABLE CLERK RN received notification from pre certification that 3 month post ablation CCTA denied. RN reordered CCTA with appropriate diagnoses associated. RN to reach dede k out to pre certification team to verify that CCTA will be covered/is still pedro eduled for 10/16/2019. Will remain available. GORDO Jackson. UNTS RECEIVABLE CLERK * Telephone Encounter - Ya Howard RN - 10/11/2019 3:52 PM ACCOUNTS RECEIVABLE CLERK returned call to David. left message that he should be done around 1 pm however, did stress that this is an estimate. offered that we could call his ride when he is close to finishing if that would help asked him to cb if further questions UNTS RECEIVABLE CLERK * Telephone Encounter - Ya Howard RN - 10/11/2019 3:52 PM ACCOUNTS RECEIVABLE CLERK ----- Message from Mercy Carbajal LPN sent at 10/11/2019 12:27 PM ACCOUNTS RECEIVABLE CLERK ----- Regarding: MPE- RTC- he wanted to know how long his appointment will take on Wed. He is having to get a ride and needs to know. He is at # [phone]. UNTS RECEIVABLE CLERK documented in this encounter Plan of Treatment [...]
--- OUTSIDE RECORDS SUMMARY | 2020-04-06 18:45 | XMS REPORT | Encounter Summary ---
Author Author [facility] Organization [facility] Address Unknown Phone Unavailable Care Team Providers Care Tank Builder Name Role Phone Shreman Spicer MD Unavailable Reyna Bond Unavailable Unavailable Indiana Bauer APRN PCP Unavailable Reason for Visit * Reason Comments Other post ablation ct canceled i nsurance denied Encounter Details Care Team Description Date Type Department Sally Rendon RN Other (post ablation ct canceled insuran ce denied) 10/13/2019 Telephone [facility] [address] [address] Social History Date Tobacco Use [...] Sally Rendon RN - 10/13/2019 7:51 AM ELECTRICAL SOLDERER ----- Message from Rafia Snyder RN sent at 10/12/2019 3:36 PM ELECTRICAL SOLDERER ----- Regarding: RE: CTA denied MPE does not want to pursue CCTA. ----- Message ----- From: Sally Rendon RN Sent: 10/12/2019 2:39 PM ELECTRICAL SOLDERER To: Rafia Snyder RN Subject: RE: CTA denied They just said insurance would not cover it?? ----- Message ----- From: Rafia Snyder RN Sent: 10/12/2019 1:48 PM ELECTRICAL SOLDERER To: Sally Rendon RN Subject: RE: CTA denied Yes, his CT is for post ablation. I will review with MPE and get back to you. An y particular reason CT was denied? ----- Message ----- From: Cecy He RN Sent: 10/12/2019 1:20 PM ELECTRICAL SOLDERER To: Rafia Snyder RN Subject: FW: CTA denied ----- Message ----- From: Sally Rendon RN Sent: 10/12/2019 12:39 PM ELECTRICAL SOLDERER To: Cv Nurse Ep Subject: CTA denied Just wanted to let you know insurance denied ct. Looks like pre cert was contac [facility]. I see that he is post ablation, does he need ct? Pt is coming 10/16 Mo nday for OV and ct TRICAL SOLDERER documented in this encounter Plan of Treatment [...]
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
[2020-04-06 18:59] LABS: BASOPHILS # (AUTO) 0.1 10^3/uL (0.0-0.1); BASOPHILS % (AUTO) 1 % (0-10); EOSINOPHILS # (AUTO) 0.2 10^3/uL (0.0-0.3); EOSINOPHILS % (AUTO) 2 % (0-10); HEMATOCRIT 35 % (40-54); HEMOGLOBIN 11.6 G/DL (13.3-17.7); LYMPHOCYTES # (AUTO) 1.5 X 10^3 (1.0-4.0); LYMPHOCYTES % (AUTO) 20 % (12-44); MEAN CORPUSCULAR HEMOGLOBIN 27 PG (25-34); MEAN CORPUSCULAR HGB CONC 33 G/DL (32-36); MEAN CORPUSCULAR VOLUME 82 FL (80-99); MEAN PLATELET VOLUME 9.9 FL (7.4-10.4); MONOCYTES # (AUTO) 0.9 X 10^3 (0.0-1.0); MONOCYTES % (AUTO) 12 % (0-12); NEUTROPHILS # (AUTO) 4.7 X 10^3 (1.8-7.8); NEUTROPHILS % (AUTO) 65 % (42-75); PLATELET COUNT 617 10^3/uL (130-400); RED CELL DISTRIBUTION WIDTH 15.3 % (10.0-14.5); WHITE BLOOD COUNT 7.3 10^3/uL (4.3-11.0)
--- OUTSIDE RECORDS SUMMARY | 2020-04-06 19:07 | XMS REPORT | Continuity of Care Document ---
Demographics Preferred Language Unknown Marital Status Unknown Anabaptism Affiliation Unknown Race Unknown Ethnic Group Unknown [...] N/A 11/20/2014 Yes No Known Drug Allergies [id number] Drug Allergy Unknown N/A 11/24/2018 Yes No Known Drug Allergies [id number] Drug Allergy Unknown N/A 03/01/2019 Yes IV [...] ROGERS, BRENNEN ZAMORANO 784.0 headache 04/26/2008 MICHELE CREMATOR, BRENNEN ZAMORANO 784.0 headache 04/26/2008 VIRGEN DO, [...] DO, SHERRON K 784.0 headache 04/26/2008 BEVERLEY AUTOMATIC PROFILE SHAPER OPERATOR, OLIVIA M 784.0 headache 04/26/2008 VIRGEN DO, SHERRON K 784.0 headache 04/26/2008 VIRGEN DO, SHERRON K 784.0 headache 04/26/2008 BEVERLEY AUTOMATIC PROFILE SHAPER OPERATOR, OLIVIA M 784.0 headache 04/26/2008 VIRGEN DO, SHERRON K 784.0 headache 06/09/2008 266.2 B12 DEF W/O ANEMIA 06/09/2008 RYNE ROGERS BRENNEN ZAMORANO 266.2 B12 DEF W/O ANEMIA 06/09/2008 266.2 B12 DEF W/O ANEMIA 06/09/2008 RYNE ROGERS BRENNEN JAUN 266.2 B12 DEF W/O ANEMIA 06/09/2008 RYNE ROGERS BRENNEN ZAMORANO 266.2 B12 DEF W/O ANEMIA 06/09/2008 MICHELE CREMATOR BRENNEN ZAMORANO 266.2 B12 DEF W/O ANEMIA [...] SUE BRENNEN ZAMORANO 536.8 Dyspepsia 07/04/2008 MICHELE CREMATOR, BRENNEN JAUN 285.9 ANEMIA 07/04/2008 MICHELE CREMATOR, BRENNEN JAUN 536.8 Dyspepsia 07/04/2008 MICHELE CREMATOR, BRENNEN JAUN 285.9 ANEMIA 07/04/2008 MICHELE CREMATOR, BRENNEN JUAN 536.8 Dyspepsia 07/04/2008 VIRGEN DO, SHERRON K 285.9 ANEMIA 07/04/2008 VIRGEN DO, SHERRON K 536.8 Dyspepsia 07/04/2008 MADL CREMATOR, RYAN L 285 .9 ANEMIA 07/04/2008 MADL CREMATOR, RYAN L 536 .8 Dyspepsia 07/04/2008 VIRGEN [...] 07/04/2008 OLIVIA AUGUSTINE 285.9 ANEMIA 07/04/2008 BEVERLEY AUTOMATIC PROFILE SHAPER OPERATOR, OLIVIA M 536.8 Dyspepsia 07/04/2008 VIRGEN DO, [...] BRENNEN JAUN 528.9 Mouth Pain 09/04/2008 MICHELE CREMATOR, BRENNEN JAUN 528.9 Mouth Pain 09/04/2008 MICHELE CREMATOR, BRENNEN JAUN 528.9 Mouth Pain 09/04/2008 VIRGEN [...] fee ling tired or poorly 01/23/2009 MICHELE CREMATOR, BRENNEN ZAMORANO 302.72 MALE ERECTILE DISORDER 01/23/2009 MICHELE CREMATOR, BRENNEN ZAMORANO 780.79 feeling tired or poorly 01/23/2009 302.72 MAL E ERECTILE DISORDER 01/23/2009 780.79 fee ling tired or poorly 01/23/2009 MICHELE CREMATOR, BRENNEN ZAMORANO 302.72 MALE ERECTILE DISORDER 01/23/2009 MICHELE CREMATOR, BRENNEN ZAMORANO 780.79 feeling tired or poorly 01/23/2009 MICHELE CREMATOR, BRENNEN ZAMORANO 302.72 MALE ERECTILE DISORDER 01/23/2009 MICHELE CREMATOR BRENNEN ZAMORANO 780.79 feeling tired or poorly 01/23/2009 MICHELE CREMATOR, BRENNEN ZAMORANO 302.72 MALE ERECTILE DISORDER 01/23/2009 MICHELE CREMATOR, BRENNEN ZAMORANO 780.79 feeling tired or poorly 01/23/2009 VIRGEN DO, SHERRON K 302.72 MALE ERECTILE DISORDER 01/23/2009 VIRGEN DO, SHERRON K 780.79 feeling tired or poorly 01/23/2009 MADL CREMATOR, RYAN L 302 .72 MALE ERECTILE DISORDER 01/23/2009 MADL CREMATOR, RYAN L 780 .79 feeling tired or [...] SUE BRENNEN ZAMORANO 307.40 INSOMNIA 06/13/2009 MICHELE CREMATOR, BRENNEN ZAMORANO V04.81 FLU SHOT 06/13/2009 307.40 INS OMNIA 06/13/2009 V04.81 FLU SHOT 06/13/2009 MICHELE CREMATOR, BRENNEN ZAMORANO 307.40 INSOMNIA 06/13/2009 MICHELE CREMATOR, BRENNEN ZAMORANO V04.81 FLU SHOT 06/13/2009 MICHELE CREMATOR, BRENNEN ZAMORANO 307.40 INSOMNIA 06/13/2009 MICHELE CREMATOR, BRENNEN ZAMORANO V04.81 FLU SHOT 06/13/2009 MICHELE CREMATOR, BRENNEN ZAMORANO 307.40 INSOMNIA 06/13/2009 MICHELE CREMATOR, BRENNEN ZAMORANO V04.81 FLU SHOT 06/13/2009 VIRGEN DO, SHERRON K 307.40 INSOMNIA 06/13/2009 VIRGEN DO, SHERRON K V04.81 FLU SHOT 06/13/2009 MADL CREMATOR, RYAN L 307 .40 INSOMNIA 06/13/2009 MADL CREMATOR, RYAN L V04 .81 FLU SHOT 06/13/2009 [...] OLIVIA AUGUSTINE M 307.40 INSOMNIA 06/13/2009 BEVERLEY AUTOMATIC PROFILE SHAPER OPERATOROLIVIA V04.81 FLU SHOT 06/13/2009 VIRGEN DO, SHERRON K 307.40 INSOMNIA 06/13/2009 VIRGEN DO, SHERRON K V04.81 FLU SHOT 09/11/2009 728.85 Mus jose Spasm 09/11/2009 847.9 Spra in Back 09/11/2009 MICHELE CREMATOR, BRENNEN LEPEH 728.85 Muscle Spasm 09/11/2009 MICHELE CREMATOR, BRENNEN ZAMORANO 847.9 Sprain Back 09/11/2009 728.85 Mus jose Spasm 09/11/2009 847.9 Spra in Back 09/11/2009 MICHELE CREMATOR, BRENNEN LEPEH 728.85 Muscle Spasm 09/11/2009 MICHELE CREMATOR, BRENNEN ZAMORANO 847.9 Sprain Back 09/11/2009 MICHELE CREMATOR, BRENNEN LEPEH 728.85 Muscle Spasm 09/11/2009 MICHELE CREMATOR, BRENNEN LEPEH 847.9 Sprain Back 09/11/2009 MICHELE CREMATOR, BRENNEN LEPEH 728.85 Muscle Spasm 09/11/2009 MICHELE CREMATOR, BRENNEN ZAMORANO 847.9 Sprain Back 09/11/2009 VIRGEN DO, SHERRON K 728.85 Muscle Spasm 09/11/2009 VIRGEN DO, SHERRON K 847.9 Sprain Back 09/11/2009 MADL CREMATOR, RYAN L 728 .85 Muscle Spasm 09/11/2009 MADL CREMATOR, RYAN L 847 .9 Sprain Back 09/11/2009 [...] OLIVIA M 728.85 Muscle Spasm 09/11/2009 BEVERLEY AUTOMATIC PROFILE SHAPER OPERATOROLIVIA M 847.9 Sprain Back 09/11/2009 VIRGEN DO, SHERRON K 728.85 Muscle Spasm 09/11/2009 VIRGEN DO, SHERRON K 847.9 Sprain Back 09/11/2009 VIRGEN DO, SHERRON K 728.85 Muscle Spasm 09/11/2009 VIRGEN DO, SHERRON K 847.9 Sprain Back 09/11/2009 BEVERLEY DIAZ, OLIVIA M 728.85 Muscle Spasm 09/11/2009 BEVERLEY AUTOMATIC PROFILE SHAPER OPERATOR, OLIVIA M 847.9 Sprain Back 09/11/2009 VIRGEN DO, SHERRON K 728.85 Muscle Spasm 09/11/2009 VIRGEN DO, SHERRON K 847.9 Sprain Back 10/23/2009 NODX No Di agnosis 10/23/2009 MICHELE CREMATORBRENNEN NODX No Diagnosis 10/23/2009 NODX No Di agnosis 10/23/2009 MICHELE CREMATOR, BRENNEN ZAMORANO NODX No Diagnosis 10/23/2009 MICHELE CREMATOR, BRENNEN ZAMORANO NODX No Diagnosis 10/23/2009 MICHELE CREMATORBRENNEN NODX No Diagnosis 10/23/2009 VIRGEN DO, SHERRON [...] SHERRON K NODX No Diagnosis 10/23/2009 BEVERLEY AUTOMATIC PROFILE SHAPER OPERATOR, OLIVIA M N ODX No Diagnosis 10/23/2009 VIRGEN DO, SHERRON K NODX No Diagnosis 10/23/2009 VIRGEN DO, SHERRON K NODX No Diagnosis 10/23/2009 BEVERLEY AUTOMATIC PROFILE SHAPER OPERATOR, OLIVIA M N ODX No Diagnosis 10/23/2009 [...] N IN JOINT, SITE UNSPECIFIED 05/09/2010 MICHELE CREMATOR, BRENNEN LEPEH 719.40 PAIN IN JOINT, SITE UNSPECIFIED 05/09/2010 719.40 JOLIE N IN JOINT, SITE UNSPECIFIED 05/09/2010 MICHELE CREMATOR, BRENNEN LEPEH 719.40 PAIN IN JOINT, SITE UNSPECIFIED 05/09/2010 MICHELE CREMATOR, BRENNEN LEPEH 719.40 PAIN IN JOINT, SITE UNSPECIFIED 05/09/2010 MICHELE CREMATOR, BRENNEN LEPEH 719.40 PAIN IN JOINT, SITE [...] UNSPECIFIED NATURE OF RESPIRATORY SYSTEM 06/13/2010 MICHELE CREMATOR, BRENNEN JAUN 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 06/13/2010 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 06/13/2010 MICHELE CREMATOR, BRENNEN JAUN 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 06/13/2010 MICHELE CREMATOR, BRENNEN JAUN 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 06/13/2010 MICHELE CREMATOR, BRENNEN LEPEH 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 06/13/2010 VIRGEN DO, SHERRON K 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 06/13/2010 MADL CREMATOR, RYAN L 239 .1 NEOPLASMS OF UNSPECIFIED [...] 300.02 AN GEN ANXIETY 07/22/2010 MICHELE SUE BRNENEN JAUN 301.9 PD PERS DIS NOS 07/22/2010 [...] SHERRON K 309.81 AN PTSD 07/22/2010 MADL CREMATOR, RYAN L 295 .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 07/22/2010 MADL CREMATOR, RYAN L 300 .02 AN GEN ANXIETY 07/22/2010 MADL CREMATOR, RYAN L 301 .9 PD PERS DIS NOS 07/22/2010 MADL CREMATOR, RYAN L 309 .81 AN PTSD 07/22/2010 [...] 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 07/22/2010 BEVERLEY AUTOMATIC PROFILE SHAPER OPERATOROLIVIA M 300.02 AN GEN ANXIETY 07/22/2010 BEVERLEY AUTOMATIC PROFILE SHAPER OPERATOROILVIA M 301.9 PD PERS DIS NOS 07/22/2010 [...] SHERRON K 309.81 AN PTSD 07/22/2010 BEVERLEY AUTOMATIC PROFILE SHAPER OPERATOR, OLIVIA M 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 07/22/2010 BEVERLEY AUTOMATIC PROFILE SHAPER OPERATOR, OLIVIA M 300.02 AN GEN ANXIETY 07/22/2010 BEVERLEY AUTOMATIC PROFILE SHAPER OPERATOR, OLIVIA M 301.9 PD PERS DIS NOS 07/22/2010 BEVERLEY AUTOMATIC PROFILE SHAPER OPERATOR, OLIVIA M 309.81 AN PTSD 07/22/2010 VIRGEN [...] Diverticulosis Of Colon (without Hemorrhage) 12/17/2010 BRENNEN MIHCELE APRN 709.9 Unspecified Disorder Of Skin And [...] Of Skin And Subcutaneous Tissue 12/17/2010 LAURAL CREMATOR, RYAN L 562 .10 Diverticulosis Of Colon (without Hemorrhage) 12/17/2010 MADL CREMATOR, RYAN L 709 .9 Unspecified Disorder Of [...] And Abscess Of Unspecified Sites 02/23/2011 MICHELE CREMATOR, BRENNEN ZAMORANO 452 Portal Vein Thrombosis 02/23/2011 MICHELE CREMATOR, BRENNEN LEPEH 682.9 Cellulitis And Abscess Of Unspecified Sites 02/23/2011 452 Portal Vein Thrombosis 02/23/2011 682.9 Cell ulitis And Abscess Of Unspecified Sites 02/23/2011 MICHELE CREMATOR, BRENNEN ZAMORANO 45Joseph Portal Vein Thrombosis 02/23/2011 MICHELE CREMATOR, BRENNEN LEPEH 682.9 Cellulitis And Abscess Of Unspecified Sites 02/23/2011 MICHELE CREMATOR, BRENNEN ZAMORANO 452 Portal Vein Thrombosis 02/23/2011 MICHELE CREMATOR, BRENNEN ZAMORANO 682.9 Cellulitis And Abscess Of Unspecified Sites 02/23/2011 MICHELE CREMATOR, BRENNEN ZAMORANO 45Joseph Portal Vein Thrombosis 02/23/2011 MICHELE CREMATOR, BRENNEN ZAMORANO 682.9 Cellulitis And Abscess Of Unspecified Sites 02/23/2011 VIRGEN DO, SHERRON K 452 Portal Vein Thrombosis 02/23/2011 VIRGEN DO, SHERRON K 682.9 Cellulitis And Abscess Of Unspecified Sites 02/23/2011 MADL CREMATOR, RYAN L 452 Portal Vein Thrombosis 02/23/2011 MADL CREMATOR, RYAN L 682 .9 Cellulitis And Abscess [...] APRN 780.50 SLEEP DISTURBANCE, UNSPECIFIED 02/24/2011 MICHELE CREMATOR, BRENNEN ZAMORANO V58.30 Encounter For Change Or Removal Of Nonsurgical Wound D ressing 02/24/2011 780.50 SLE EP DISTURBANCE, UNSPECIFIED 02/24/2011 V58.30 Enc ounter For Change Or Removal Of Nonsurgical Wound Dressing 02/24/2011 MICHELE CREMATOR, BRENNEN ZAMORANO 780.50 SLEEP DISTURBANCE, UNSPECIFIED 02/24/2011 MICHELE CREMATOR, BRENNEN ZAMORANO V58.30 Encounter For Change Or Removal Of Nonsurgical Wound D ressing 02/24/2011 MICHELE CREMATOR, BRENNEN ZAMORANO 780.50 SLEEP DISTURBANCE, UNSPECIFIED 02/24/2011 MICHELE CREMATOR, BRENNEN ZAMORANO V58.30 Encounter For Change Or Removal Of Nonsurgical Wound D ressing 02/24/2011 MICHELE CREMATOR, BRENNEN ZAMORANO 780.50 SLEEP DISTURBANCE, UNSPECIFIED 02/24/2011 MICHELE CREMATOR, BRENNEN ZAMORANO V58.30 Encounter For Change Or Removal Of Nonsurgical Wound D ressing 02/24/2011 VIRGEN DO, SHERRON K 780.50 SLEEP DISTURBANCE, UNSPECIFIED 02/24/2011 VIRGEN DO, SHERRON K V58.30 Encounter For Change Or Removal Of Nonsurgical Wound Dressing 02/24/2011 MADL CREMATOR, RYAN L 780 .50 SLEEP DISTURBANCE, UNSPECIFIED 02/24/2011 MADL CREMATOR, RYAN L V58 .30 Encounter For Change [...] ISSU E OF REPEAT PRESCRIPTIONS 03/18/2011 MICHELE CREMATORBRENNEN V68.1 ISSUE OF REPEAT PRESCRIPTIONS 03/18/2011 V68.1 [...] RESISTANT STAPHYLOCOCCUS AUR 03/24/2011 Ot 305.1 TOBA UM NURSE USE DISORDER 03/24/2011 Ot 530.81 ESO PHAGEAL [...] V58.69 MED ICATION HIGH RISK 03/25/2011 MICHELE CREMATOR, BRENNEN ZAMORANO V58.69 MEDICATION HIGH RISK 03/25/2011 MICHELE CREMATOR BRENNEN ZAMORANO V58.69 MEDICATION HIGH RISK 03/25/2011 MICHELE CREMATOR, BRENNEN ZAMORANO V58.69 MEDICATION HIGH RISK 03/25/2011 [...] METHICILLIN RESISTANT STAPHYLOCOCC US AUREUS 03/26/2011 BRENNEN MICHLEE APRN V12.04 PERSONAL HISTORY OF METHICILLIN RESISTANT STAPHYLOCOCC US AUREUS 03/26/2011 MICHELE CREMATORBRENNEN V12.04 PERSONAL HISTORY OF METHICILLIN RESISTANT STAPHYLOCOCC [...] 298.9 P PS YCHOSIS NOS 09/30/2011 MICHELE CREMATOR, BRENNEN JAUN 298.9 P PSYCHOSIS NOS 09/30/2011 298.9 P PS YCHOSIS NOS 09/30/2011 MICHELE CREMATOR, BRENNEN LEPEH 298.9 P PSYCHOSIS NOS 09/30/2011 MICHELE CREMATOR, BRENNEN ZAMORANO 298.9 P PSYCHOSIS NOS 09/30/2011 MICHELE CREMATOR, BRENNEN ZAMORANO 298.9 P PSYCHOSIS NOS 09/30/2011 VIRGEN DO, SHERRON K 298.9 P PSYCHOSIS NOS 09/30/2011 MADL CREMATOR, RYAN L 298 .9 P PSYCHOSIS NOS [...] K 298.9 P PSYCHOSIS NOS 09/30/2011 BEVERLEY AUTOMATIC PROFILE SHAPER OPERATOR, OLIVIA M 298.9 P PSYCHOSIS NOS 09/30/2011 VIRGEN DO, SHERRON K 298.9 P PSYCHOSIS NOS 09/30/2011 VIRGEN DO, SHERRON K 298.9 P PSYCHOSIS NOS 09/30/2011 BEVERLEY AUTOMATIC PROFILE SHAPER OPERATOR, OLIVIA M 298.9 P PSYCHOSIS NOS 09/30/2011 [...] SHERRON K 346.90 MIGRAINE HEADACHE 10/04/2013 BEVERLEY AUTOMATIC PROFILE SHAPER OPERATOR, OLIVIA M 346.90 MIGRAINE HEADACHE 10/04/2013 VIRGEN DO, SHERRON K 346.90 MIGRAINE HEADACHE 10/04/2013 VIRGEN DO, SHERRON K 346.90 MIGRAINE HEADACHE 10/04/2013 BEVERLEY AUTOMATIC PROFILE SHAPER OPERATOR, OLIVIA M 346.90 MIGRAINE HEADACHE 10/04/2013 VIRGEN DO, SHERRON K 346.90 MIGRAINE HEADACHE 02/13/2014 VIRGEN DO, SHERRON K 338.29 OTHER CHRONIC PAIN 02/13/2014 MADVanessa CREMATOR, RYAN L 338 .29 OTHER CHRONIC PAIN [...] K 338.29 OTHER CHRONIC PAIN 02/19/2014 MADL CREMATOR, RYAN L 796 .9 OTHER NONSPECIFIC ABNORMAL [...] 311 MO DEPRESS NOS 08/22/2014 BEVERLEY CNS, OLIVIA M 3 11 MO DEPRESS NOS 08/22/2014 YOCASTA VIRGEN DOA K 311 MO DEPRESS NOS 11/05/2014 OLIVAI AUGUSTINE M 296.32 MO DEPRESSIVE RECURRENT MODERATE [...] MD Ot 414. 01 CORONARY ATHEROSCLEROSIS OF I[place] CORON 02/18/2015 GILES CHRISTIANSON MD Ot 424. [...] PAIN 06/27/2017 SAJAN CRUZ MD, Ot Z79.82 FDC (CURRENT) USE OF ASPIRIN 06/27/2017 SAJAN CRUZ [...] PAIN 06/29/2017 SAJAN CRUZ MD, Ot Z79.82 WRAPPER STITCHER (CURRENT) USE OF ASPIRIN 06/29/2017 SAJAN CRUZ [...] PAIN 06/29/2017 SAJAN CRUZ MD, Ot Z79.82 WRAPPER STITCHER (CURRENT) USE OF ASPIRIN 06/29/2017 SAJAN CURZ MD, Ot Z90.49 ACQUIRED ABSENCE OF OTHER [...] PAIN 07/14/2017 IMMANUEL FRANCO MD, Ot Z79.82 WRAPPER STITCHER (CURRENT) USE OF ASPIRIN 07/14/2017 IMMANUEL FRANCO MD, Ot Z79.89 9 OTHER WRAPPER STITCHER (CURRENT) DRUG THERAPY 07/14/2017 IMMANUEL FRANCO MD, [...] DO Ot 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[place] CORONARY 08/23/2017 JUAN MANUEL EVANS DO Ot [...] MANUEL Ot 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 CORONARY 08/24/2017 NATHAN MELCHOR, JUAN MANUEL Ot [...] MANUEL Ot 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 CORONARY 08/24/2017 NATHAN MELCHOR JUAN MANUEL Ot [...] K Ot R25.2 CRAMP AND SPASM 09/01/2017 [facility] Ot Z79.01 [facility] (CURRENT) USE OF ANTICOAGULANT 09/01/2017 MAHI PANIAGUA DO Ot Z79.82 WRAPPER STITCHER (CURRENT) USE OF ASPIRIN 09/01/2017 SIVA MAHI [...] SPASM 09/08/2017 SIVA DOANILAA K Ot Z79.01 WRAPPER STITCHER (CURRENT) USE OF ANTICOAGULANT 09/08/2017 MAHI PANIAGUA DO Ot Z79.82 WRAPPER STITCHER (CURRENT) USE OF ASPIRIN 09/08/2017 MAHI PANIAGUA [...] DOI Ot 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[place] CORONARY 09/24/2017 NATHAN MELCHOR JUAN MANUEL Ot I47.1 SUPRAVENTRICULAR TACHYCARDIA 09/24/2017 NATHAN MELCHOR JUAN MANUEL Ot I48.0 PAROXYSMAL ATRIAL FIBRILLATION 09/24/2017 NATHAN MELCHOR JUAN MANUEL Ot K21.9 GASTRO-ESOPHAGEAL REFLUX DISEASE WITHOUT 09/24/2017 NATHAN MELCHOR JUAN MANUEL Ot K59.09 OTHER CONSTIPATION 09/24/2017 NATHAN MELCHOR JUAN MANUEL Ot Z79.89 1 [facility] (CURRENT) USE OF OPIATE ANALGE 09/24/2017 NATHAN MELCHOR JUAN MANUEL Ot Z79.89 9 OTHER [facility] (CURRENT) DRUG THERAPY 09/24/2017 NATHAN MELCHOR JUAN [...] UNSPECIFIED 09/25/2017 MAHI PANIAGUA DO Ot Z79.02 WRAPPER STITCHER (CURRENT) USE OF ANTITHROMBOTI 09/25/2017 MAHI PANIAGUA [...] Z98.1 ARTH RODESIS STATUS 03/07/2018 EMILIE BANEGAS CREMATOR Ot I86.1 SCROTAL VARICES 03/07/2018 EMILIE BANEGAS CREMATOR Ot K46.9 UNSPECIFIED ABDOMINAL HERNIA WITHOUT OBS 03/07/2018 EMILIE BANEGAS CREMATOR Ot N43.3 HYDROCELE, UNSPECIFIED 03/07/2018 EMILIE BANEGAS CREMATOR Ot N50.3 CYST OF EPIDIDYMIS 06/24/2018 ERIKA DRAPER, JEOVANNY Mayo Ot B18. 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 06/24/2018 Ot M50.31 OTH ER CERVICAL DISC DEGENERATION, HIGH 06/24/2018 Ot Z98.1 ARTH RODESIS STATUS 06/24/2018 EMILIE BANEGAS CREMATOR Ot I86.1 SCROTAL VARICES 06/24/2018 EMILIE BANEGAS CREMATOR Ot K46.9 UNSPECIFIED ABDOMINAL HERNIA WITHOUT OBS 06/24/2018 EMILIE BANEGAS CREMATOR Ot N43.3 HYDROCELE, UNSPECIFIED 06/24/2018 EMILIE BANEGAS CREMATOR Ot N50.3 CYST OF EPIDIDYMIS 06/28/2018 JEOVANNY [...] OTHER SPECIFIED PROPHYLACT 09/05/2018 MAKENZIE, EMILIE M CREMATOR Ot R94.6 ABNORMAL RESULTS OF THYROID FUNCTION MIKE 09/05/2018 TANISHACARRINGTON NOTE TAKER Ot Z29.8 ENCOUNTER FOR OTHER SPECIFIED PROPHYLACT [...] MD Ot 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[place] CORONARY 10/13/2018 NIC LÓPEZ MD Ot I48.0 [...] Ot N50.3 CYST OF EPIDIDYMIS 11/24/2018 JEOVANNY JAMSE MD P Ot B18. 2 CHRONIC VIRAL [...] Z98.1 ARTH RODESIS STATUS 11/25/2018 EMILIE BANEGAS CREMATOR Ot I86.1 SCROTAL VARICES 11/25/2018 EMILIE BANEGAS [...] CHRONIC VIRAL HEPATITIS C 11/25/2018 EMILIE BANEGAS CREMATOR Ot E03.8 OTHER SPECIFIED HYPOTHYROIDISM 11/25/2018 EMILIE BANEGAS CREMATOR Ot I1 0 ESSENTIAL (PRIMARY) HYPERTENSION 11/25/2018 EMILIE BANEGAS CREMATOR Ot I48.0 PAROXYSMAL ATRIAL FIBRILLATION 01/06/2019 POST [...] Ot I25. 10 ATHSCL HEART DISEASE OF I[place] CORONARY 03/01/2019 TERESA MENSEES MD Ot I48. 91 UNSPECIFIED ATRIAL FIBRILLATION 03/01/2019 TEERSA MENESES MD Ot I48. 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, ACCID 03/01/2019 MUNDO JUAREZ MD, Ot Z79.01 WRAPPER STITCHER (CURRENT) USE OF ANTICOAGULANT 03/01/2019 MUNDO JUAREZ [...] MD, Ot 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 CORONARY 03/03/2019 MUNDO JUAREZ MD, Ot I48.91 UNSPECIFIED ATRIAL FIBRILLATION 03/03/2019 MUNDO JUAREZ MD, Ot I48.92 UNSPECIFIED ATRIAL FLUTTER 03/03/2019 MUNDO JUAREZ MD, Ot M79.89 OTHER SPECIFIED SOFT TISSUE DISORDERS 03/03/2019 MUNDO JUAREZ MD, Ot 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, ACCID 03/03/2019 MUNDO JUAREZ MD, Ot Z79.01 FDC (CURRENT) USE OF ANTICOAGULANT 03/03/2019 MUNDO JUAREZ [...] Ot Z98.890 OTHER SPECIFIED POSTPROCEDURAL STATES 03/03/2019 TERSEA MENESES MD Ot B19. 20 UNSPECIFIED VIRAL [...] Ot I25. 10 ATHSCL HEART DISEASE OF [place] CORONARY 03/03/2019 TERESA MENESES MD Ot I48. [...] Ot I25. 10 ATHSCL HEART DISEASE OF [place] CORONARY 03/03/2019 TERESA MENESES MD Ot I48. [...] Ot I86.1 SCROTAL VARICES 03/09/2019 EMILIE BANEGAS CREMATOR Ot K46.9 UNSPECIFIED ABDOMINAL HERNIA WITHOUT OBS 03/09/2019 EMILIE BANEGAS CREMATOR Ot N43.3 HYDROCELE, UNSPECIFIED 03/09/2019 EMILIE BANEGAS CREMATOR Ot N50.3 CYST OF EPIDIDYMIS 03/09/2019 ERIKA DRAPER, JEOVANNY P Ot B18. 2 CHRONIC VIRAL HEPATITIS C 03/09/2019 EMILIE BANEGAS CREMATOR Ot R94.6 ABNORMAL RESULTS OF THYROID FUNCTION MIKE 03/09/2019 ERIKA DRAPER, JEOVANNY P Ot B18. 2 CHRONIC VIRAL HEPATITIS C 03/09/2019 EMILIE BANEGAS CREMATOR Ot E03.8 OTHER SPECIFIED HYPOTHYROIDISM 03/09/2019 EMILIE BANEGAS CREMATOR Ot I1 0 ESSENTIAL (PRIMARY) HYPERTENSION 03/09/2019 EMILIE BANEGAS CREMATOR Ot I48.0 PAROXYSMAL ATRIAL FIBRILLATION 03/09/2019 NELLY [...] DO Ot 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 CORONARY 03/09/2019 NELLY POST DO Ot I48.91 UNSPECIFIED ATRIAL FIBRILLATION 03/09/2019 NELLY POST DO Ot I48.92 UNSPECIFIED ATRIAL FLUTTER 03/09/2019 NELLY POST DO Ot R00.0 TACHYCARDIA, UNSPECIFIED 03/09/2019 NELLY POST DO Ot Z79.01 WRAPPER STITCHER (CURRENT) USE OF ANTICOAGULANT 03/09/2019 KARLSTAD DO, NELLY Ot Z82.49 FAMILY HX OF ISCHEM HEART DIS AND OTH DI 03/09/2019 KARLSTAD DO, NELLY Ot Z85.00 PERSONAL HISTORY OF MALIGNANT NEOPLASM O 03/09/2019 KARLSTAD DO, NELLY Ot Z86.010 PERSONAL HISTORY OF COLONIC POLYPS 03/09/2019 KARLSTAD DO, NELLY Ot Z86.711 PERSONAL HISTORY OF PULMONARY EMBOLISM 03/09/2019 KARLSTAD DO, NELLY Ot Z86.718 PERSONAL HISTORY OF OTHER VENOUS THROMBO 03/09/2019 KARLSTAD DO, NELLY Ot Z87.19 PERSONAL HISTORY OF OTHER DISEASES OF TH 03/09/2019 KARLSTAD DO, NELLY Ot Z87.891 PERSONAL HISTORY OF NICOTINE DEPENDENCE 03/09/2019 KARLSTAD DO, NELLY Ot Z90.49 ACQUIRED ABSENCE OF OTHER SPECIFIED PART 03/10/2019 KARLSTAD DO, NELLY Ot E03.9 HYPOTHYROIDISM, UNSPECIFIED 03/10/2019 KARLSTAD DO, NELLY Ot F32.9 MAJOR DEPRESSIVE DISORDER, SINGLE EPISOD 03/10/2019 KARLSTAD DO, NELLY Ot F41.9 ANXIETY DISORDER, UNSPECIFIED 03/10/2019 KARLSTAD DO, NELLY Ot G43.909 MIGRAINE, UNSP, NOT INTRACTABLE, WITHOUT 03/10/2019 KARLSTAD DO, NELLY Ot 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 CORONARY 03/10/2019 KARLSTAD DO, NELLY Ot I48.91 UNSPECIFIED ATRIAL FIBRILLATION 03/10/2019 KARLSTAD DO, NELLY Ot I48.92 UNSPECIFIED ATRIAL FLUTTER 03/10/2019 KARLSTAD DO, NELLY Ot R00.0 TACHYCARDIA, UNSPECIFIED 03/10/2019 KARLSTAD DO, NELLY Ot Z79.01 WRAPPER STITCHER (CURRENT) USE OF ANTICOAGULANT 03/10/2019 POST DO, NELLY Ot Z82.49 FAMILY HX OF ISCHEM HEART DIS AND OTH DI 03/10/2019 KARLSTAD DO, NELLY Ot Z85.00 PERSONAL HISTORY OF MALIGNANT NEOPLASM O 03/10/2019 KARLSTAD DO, NELLY Ot Z86.010 PERSONAL HISTORY OF COLONIC POLYPS 03/10/2019 KARLSTAD DO, NELLY Ot Z86.711 PERSONAL HISTORY OF PULMONARY EMBOLISM 03/10/2019 POST DO, NELLY Ot Z86.718 PERSONAL HISTORY OF OTHER VENOUS THROMBO 03/10/2019 KARLSTAD DO, NELLY Ot Z87.19 PERSONAL HISTORY OF OTHER DISEASES OF TH 03/10/2019 POST DO, NELLY Ot Z87.891 PERSONAL HISTORY OF NICOTINE DEPENDENCE 03/10/2019 KARLSTAD DO, NELLY Ot Z90.49 ACQUIRED ABSENCE OF OTHER SPECIFIED PART 03/10/2019 POST DO, NELLY Ot E03.9 HYPOTHYROIDISM, UNSPECIFIED 03/10/2019 POST DO, NELLY Ot F32.9 MAJOR DEPRESSIVE DISORDER, SINGLE EPISOD 03/10/2019 KARLSTAD DO, NELLY Ot F41.9 ANXIETY DISORDER, UNSPECIFIED 03/10/2019 KARLSTAD DO, NELLY Ot G43.909 MIGRAINE, UNSP, NOT INTRACTABLE, WITHOUT 03/10/2019 POST DO, NELLY Ot 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 CORONARY 03/10/2019 POST DO, NELLY Ot I48.91 UNSPECIFIED ATRIAL FIBRILLATION 03/10/2019 KARLSTAD DO, NELLY Ot I48.92 UNSPECIFIED ATRIAL FLUTTER 03/10/2019 KARLSTAD DO, NELLY Ot R00.0 TACHYCARDIA, UNSPECIFIED 03/10/2019 KARLSTAD DO, NELLY Ot Z79.01 WRAPPER STITCHER (CURRENT) USE OF ANTICOAGULANT 03/10/2019 KARLSTAD DO, NELLY Ot Z82.49 FAMILY HX OF ISCHEM HEART DIS AND OTH DI 03/10/2019 POST DO, NELLY Ot Z85.00 PERSONAL HISTORY OF MALIGNANT NEOPLASM O 03/10/2019 KARLSTAD DO, NELLY Ot Z86.010 PERSONAL HISTORY OF COLONIC POLYPS 03/10/2019 KARLSTAD DO, NELLY Ot Z86.711 PERSONAL HISTORY OF PULMONARY EMBOLISM 03/10/2019 KARLSTAD DO, NLELY Ot Z86.718 PERSONAL HISTORY OF OTHER VENOUS THROMBO 03/10/2019 KARLSTAD DO, NELLY Ot Z87.19 PERSONAL HISTORY OF OTHER DISEASES OF TH 03/10/2019 KARLSTAD DO, NELLY Ot Z87.891 PERSONAL HISTORY OF NICOTINE DEPENDENCE 03/10/2019 KARLSTAD DO, NELLY Ot Z90.49 ACQUIRED ABSENCE OF OTHER SPECIFIED PART 03/13/2019 POST DO, NELLY Ot B19.20 UNSPECIFIED VIRAL HEPATITIS C WITHOUT HE 03/13/2019 POST DO, NELLY Ot E03.9 HYPOTHYROIDISM, UNSPECIFIED 03/13/2019 POST DO, NELLY Ot F32.9 MAJOR DEPRESSIVE DISORDER, SINGLE EPISOD 03/13/2019 POST DO, NELLY Ot F41.9 ANXIETY DISORDER, UNSPECIFIED 03/13/2019 KARLSTAD DO, NELLY Ot G43.909 MIGRAINE, UNSP, NOT INTRACTABLE, WITHOUT 03/13/2019 POST DO, NELLY Ot 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 CORONARY 03/13/2019 POST DO, NELLY Ot I48.91 UNSPECIFIED ATRIAL FIBRILLATION 03/13/2019 KARLSTAD DO, NELLY Ot I48.92 UNSPECIFIED ATRIAL FLUTTER 03/13/2019 KARLSTAD DO, NELLY Ot R00.0 TACHYCARDIA, UNSPECIFIED 03/13/2019 KARLSTAD DO, NELLY Ot Z79.01 FDC (CURRENT) USE OF ANTICOAGULANT 03/13/2019 KARLSTAD DO, NELLY Ot Z82.49 FAMILY HX OF ISCHEM HEART DIS AND OTH DI 03/13/2019 KARLSTAD DO, NELLY Ot Z85.00 PERSONAL HISTORY OF MALIGNANT NEOPLASM O 03/13/2019 KARLSTAD DO, NELLY Ot Z86.010 PERSONAL HISTORY OF COLONIC POLYPS 03/13/2019 KARLSTAD DO, NELLY Ot Z86.711 PERSONAL HISTORY OF PULMONARY EMBOLISM 03/13/2019 KARLSTAD DO, NELLY Ot Z86.718 PERSONAL HISTORY OF OTHER VENOUS THROMBO 03/13/2019 KARLSTAD DO, NELLY Ot Z87.19 PERSONAL HISTORY OF OTHER DISEASES OF TH 03/13/2019 KARLSTAD DO, NELLY Ot Z87.891 PERSONAL HISTORY OF NICOTINE DEPENDENCE 03/13/2019 KARLSTAD DO, NELLY Ot Z90.49 ACQUIRED ABSENCE OF OTHER SPECIFIED PART 03/15/2019 KARLSTAD DO, NELLY Ot B19.20 UNSPECIFIED VIRAL HEPATITIS C WITHOUT HE 03/15/2019 KARLSTAD DO, NELLY Ot E03.9 HYPOTHYROIDISM, UNSPECIFIED 03/15/2019 KARLSTAD DO, NELLY Ot F32.9 MAJOR DEPRESSIVE DISORDER, SINGLE EPISOD 03/15/2019 KARLSTAD DO, NELLY Ot F41.9 ANXIETY DISORDER, UNSPECIFIED 03/15/2019 KARLSTAD DO, NELLY Ot G43.909 MIGRAINE, UNSP, NOT INTRACTABLE, WITHOUT 03/15/2019 KARLSTAD DO, NELLY Ot 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 CORONARY 03/15/2019 KARLSTAD DO, NELLY Ot I48.91 UNSPECIFIED ATRIAL FIBRILLATION 03/15/2019 KARLSTAD DO, NELLY Ot I48.92 UNSPECIFIED ATRIAL FLUTTER 03/15/2019 KARLSTAD DO, NELLY Ot R00.0 TACHYCARDIA, UNSPECIFIED 03/15/2019 KARLSTAD DO, NELLY Ot Z79.01 FDC (CURRENT) USE OF ANTICOAGULANT 03/15/2019 KARLSTAD DO, NELLY Ot Z82.49 FAMILY HX OF ISCHEM HEART DIS AND OTH DI 03/15/2019 KARLSTAD DO, NELLY Ot Z85.00 PERSONAL HISTORY OF MALIGNANT NEOPLASM O 03/15/2019 KARLSTAD DO, NELLY Ot Z86.010 PERSONAL HISTORY OF [...] DO, Ot 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 CORONARY 04/10/2019 JOSE TAVERAS DO, Ot I25.2 [...] Ot I25. 10 ATHSCL HEART DISEASE OF [place] CORONARY 04/14/2019 TERESA MENESES MD Ot I48. [...] DO, Ot 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 CORONARY 04/17/2019 JOSE TAVERAS DO, Ot I25.2 [...] Ot I25. 10 ATHSCL HEART DISEASE OF [place] CORONARY 04/20/2019 TERESA MENESES MD Ot I48. [...] DO, Ot 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 CORONARY 05/30/2019 POST DO, NELLY Ot I48.91 UNSPECIFIED ATRIAL FIBRILLATION 05/30/2019 POST DO, NELLY Ot I48.92 UNSPECIFIED ATRIAL FLUTTER 05/30/2019 POST DO, NELLY Ot I50.9 HEART FAILURE, UNSPECIFIED 05/30/2019 KARLSTAD DO, NELLY Ot R07.9 CHEST PAIN, UNSPECIFIED 05/30/2019 POST DO, NELLY Ot R79.89 OTHER SPECIFIED ABNORMAL FINDINGS OF BLO 05/30/2019 POST DO, NELLY Ot Z82.49 FAMILY HX OF ISCHEM HEART DIS AND OTH DI 05/30/2019 KARLSTAD DO, NELLY Ot Z86.010 PERSONAL HISTORY OF COLONIC POLYPS 05/30/2019 KARLSTAD DO, NELLY Ot Z86.711 PERSONAL HISTORY OF PULMONARY EMBOLISM 05/30/2019 KARLSTAD DO, NELLY Ot Z86.718 PERSONAL HISTORY OF OTHER VENOUS THROMBO 05/30/2019 KARLSTAD DO, NELLY Ot Z87.891 PERSONAL HISTORY OF NICOTINE DEPENDENCE 05/30/2019 KARLSTAD DO, NELLY Ot Z90.49 ACQUIRED ABSENCE OF OTHER SPECIFIED PART 06/02/2019 KARLSTAD DO, NELLY Ot B19.20 UNSPECIFIED VIRAL HEPATITIS C WITHOUT HE 06/02/2019 KARLSTAD DO, NELLY Ot E03.9 HYPOTHYROIDISM, UNSPECIFIED 06/02/2019 KARLSTAD DO, NELLY Ot F32.9 MAJOR DEPRESSIVE DISORDER, SINGLE EPISOD 06/02/2019 KARLSTAD DO, NELLY Ot F41.9 ANXIETY DISORDER, UNSPECIFIED 06/02/2019 KARLSTAD DO, NELLY Ot G43.909 MIGRAINE, UNSP, NOT INTRACTABLE, WITHOUT 06/02/2019 KARLSTAD DO, NELLY Ot 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 10 ATHSCL HEART DISEASE OF [place] CORONARY 10/21/2019 TERESA MENESES MD Ot I48. [...] Ot I25. 10 ATHSCL HEART DISEASE OF [place] CORONARY 11/09/2019 FLACO DURÁN MD Ot I48. 91 UNSPECIFIED ATRIAL FIBRILLATION 11/09/2019 FLACO DURÁN MD Ot R07. 0 PAIN IN THROAT 11/09/2019 FLACO DURÁN MD, Ot R07. 9 CHEST PAIN, UNSPECIFIED 11/09/2019 FLACO DURÁN MD Ot R22. 0 LOCALIZED SWELLING, MASS AND LUMP, HEAD 11/09/2019 LEEANNA MD, FLACO W Ot Z79. 01 FDC (CURRENT) USE OF ANTICOAGULANT 11/09/2019 FLACO DURÁN [...] Ot I25. 10 ATHSCL HEART DISEASE OF [place] CORONARY 11/14/2019 FLACO DURÁN MD, Ot I48. 91 UNSPECIFIED ATRIAL FIBRILLATION 11/14/2019 FLACO DURÁN MD Ot R07. 0 PAIN IN THROAT 11/14/2019 FLACO DURÁN MD, Ot R07. 9 CHEST PAIN, UNSPECIFIED 11/14/2019 FLACO DURÁN MD, Ot R22. 0 LOCALIZED SWELLING, MASS AND LUMP, HEAD 11/14/2019 FLACO DURÁN MD, Ot Z79. 01 FDC (CURRENT) USE OF ANTICOAGULANT 11/14/2019 FLACO DURÁN [...] Ot I25. 10 ATHSCL HEART DISEASE OF [place] CORONARY 11/22/2019 FLACO DURÁN MD, Ot I48. 91 UNSPECIFIED ATRIAL FIBRILLATION 11/22/2019 FLACO DURÁN MD, Ot R07. 0 PAIN IN THROAT 11/22/2019 FLACO DURÁN MD, Ot R07. 9 CHEST PAIN, UNSPECIFIED 11/22/2019 FLACO DURÁN MD, Ot R22. 0 LOCALIZED SWELLING, MASS AND LUMP, HEAD 11/22/2019 FLACO DURÁN MD, Ot Z79. 01 WRAPPER [employer]ITCHER (CURRENT) USE OF ANTICOAGULANT 11/22/2019 FLACO DURÁN [...] Ot I25. 10 ATHSCL HEART DISEASE OF [place] CORONARY 12/20/2019 TERESA MENESES MD Ot I48. [...] Ot I25.1 0 ATHSCL HEART DISEASE OF [place] CORONARY 01/19/2020 KACY MARC MD Ot I48.9 1 UNSPECIFIED ATRIAL FIBRILLATION 01/19/2020 KACY MARC MD Ot I48.9 2 UNSPECIFIED ATRIAL FLUTTER 01/19/2020 KACY MARC MD Ot M19.9 1 PRIMARY OSTEOARTHRITIS, UNSPECIFIED SITE 01/19/2020 KACY MARC MD Ot N40.0 BENIGN PROSTATIC HYPERPLASIA WITHOUT LOW 01/19/2020 KACY MARC MD Ot R07.9 CHEST PAIN, UNSPECIFIED 01/19/2020 KACY MARC MD Ot Z79.8 99 OTHER F[facility] (CURRENT) DRUG THERAPY 01/19/2020 KACY MARC MD [...] Ot I25. 10 ATHSCL HEART DISEASE OF [place] CORONARY 01/19/2020 TERESA MENESES MD Ot I48. [...] Ot I25. 10 ATHSCL HEART DISEASE OF [place] CORONARY 01/25/2020 FLACO DURÁN MD Ot I48. 91 UNSPECIFIED ATRIAL FIBRILLATION 01/25/2020 FLACO DURÁN MD Ot R07. 0 PAIN IN THROAT 01/25/2020 FLACO DURÁN MD, Ot R07. 9 CHEST PAIN, UNSPECIFIED 01/25/2020 FLACO DURÁN MD, Ot R22. 0 LOCALIZED SWELLING, MASS AND LUMP, HEAD 01/25/2020 FLACO DURÁN MD, Ot Z79. 01 FDC (CURRENT) USE OF ANTICOAGULANT 01/25/2020 FLACO DURÁN [...] W I48.91 UNSPECIFIED ATRIAL FIBRILLATION 02/01/2020 Brown, Renst W J20.9 ACUTE BRONCHITIS, UNSPECIFIED 02/01/2020 Brown, [...] 02/22/2020 TERESA MENESES MD Ot Z79. 01 FDC (CURRENT) USE OF ANTICOAGULANT 02/22/2020 TERESA MENESES [...] R07. 9 CHEST PAIN, UNSPECIFIED 02/29/2020 TERESA MEENSES MD Ot Z79. 01 WRAPPER [employer]ITCHER (CURRENT) USE OF ANTICOAGULANT 02/29/2020 TERESA MENESES MD J Ot Z82. 49 FAMILY HX OF ISCHEM HEART DIS AND OTH DI 02/29/2020 TERESA MENESES MD Ot Z85.038 PERSONAL HISTORY OF MALIGNANT NEOPLASM O 02/29/2020 TERESA MENESES MD Ot Z86.711 PERSONAL HISTORY OF PULMONARY EMBOLISM 02/29/2020 ZAIRA DRAPER, TERESA Caal Ot Z87.891 PERSONAL HISTORY OF NICOTINE DEPENDENCE 03/11/2020 SHAAN DRAPER, JUAN CARLOS Estevez Ot A41. 51 SEPSIS DUE TO ESCHERICHIA COLI [E. COLI] 03/11/2020 SHAAN DRAPER, JUAN CARLOS Estevez Ot D64. 9 ANEMIA, UNSPECIFIED 03/11/2020 SHAAN DRAPER, JUAN CARLOS Estevez Ot E03. 9 HYPOTHYROIDISM, UNSPECIFIED 03/11/2020 SHAAN DRAPER, JUAN CARLOS Estevez Ot E78. 00 PURE HYPERCHOLESTEROLEMIA, UNSPECIFIED 03/11/2020 SHAAN DRAPER, JUAN CARLOS Estevez Ot E87. 2 ACIDOSIS 03/11/2020 JUAN CARLOS GARDUNO MD Ot F32. 9 MAJOR DEPRESSIVE DISORDER, SINGLE EPISOD 03/11/2020 JUAN CARLOS GARDUNO MD Ot F41. 9 ANXIETY DISORDER, UNSPECIFIED 03/11/2020 JUAN CARLOS GARDUNO MD Ot G43.909 MIGRAINE, UNSP, NOT INTRACTABLE, WITHOUT 03/11/2020 SHAAN DRAPER, JUAN CARLOS Estevez Ot I10 ESSENTIAL (PRIMARY) HYPERTENSION 03/11/2020 JUAN CARLOS GARDUNO MD Ot I21. A1 MYOCARDIAL INFARCTION TYPE 2 03/11/2020 JUAN CARLOS GARDUNO MD Ot I25. 10 ATHSCL HEART DISEASE OF [place] CORONARY 03/11/2020 SHAAN DRAPER, JUAN CARLOS Estevez Ot I48. 0 PAROXYSMAL ATRIAL FIBRILLATION 03/11/2020 JUAN CARLOS GARDUNO MD Ot J18. 9 PNEUMONIA, UNSPECIFIED ORGANISM 03/11/2020 SHAAN DRAPER, JUAN CARLOS Estevez Ot J96. 00 ACUTE RESPIRATORY FAILURE, UNSP W HYPOXI 03/11/2020 SHAAN DRAPER, JUAN CARLOS Estevez Ot K57. 90 DVRTCLOS OF INTEST, PART UNSP, W/O PERF 03/11/2020 JUAN CARLOS GARDUNO MD Ot K64. 9 UNSPECIFIED HEMORRHOIDS 03/11/2020 JUAN CARLOS GARDUNO MD Ot M19. 91 PRIMARY OSTEOARTHRITIS, UNSPECIFIED SITE 03/11/2020 JUAN CARLOS GARDUNO MD Ot N17. 9 ACUTE KIDNEY FAILURE, UNSPECIFIED 03/11/2020 JUAN CARLOS GARDUNO MD Ot N39. 0 URINARY TRACT INFECTION, SITE NOT SPECIF 03/11/2020 JUAN CARLOS GARDUNO MD Ot N42. 9 DISORDER OF PROSTATE, UNSPECIFIED 03/11/2020 SHAAN DRAPER, JUAN CARLOS Estevez Ot R04. 2 HEMOPTYSIS 03/11/2020 JUAN CARLOS GARDUNO MD Ot R65. 21 SEVERE SEPSIS WITH SEPTIC SHOCK 03/11/2020 SHAAN DRAPER, JUAN CARLOS Estevez Ot Z20.828 CONTACT W AND EXPOSURE TO OTH VIRAL COMM 03/11/2020 JUAN CARLOS GARDUNO MD Ot Z79. 01 WRAPPER [employer]ITCHER (CURRENT) USE OF ANTICOAGULANT 03/11/2020 JUAN CARLOS GARDUNO MD Ot Z85.038 PERSONAL HISTORY OF MALIGNANT NEOPLASM O 03/11/2020 JUAN CARLOS GARDUNO MD Ot Z86. 19 PERSONAL HISTORY OF OTHER INFECTIOUS AND 03/11/2020 JUAN CARLOS GARDUNO MD Ot Z86.711 PERSONAL HISTORY OF PULMONARY EMBOLISM 03/11/2020 JUAN CARLOS GARDUNO MD Ot Z87.891 PERSONAL HISTORY OF NICOTINE DEPENDENCE 03/11/2020 JUAN CARLOS GARDUNO MD Ot Z90. 81 ACQUIRED ABSENCE OF SPLEEN 03/15/2020 JUAN CARLOS GARDUNO MD Ot A41. 51 SEPSIS DUE TO ESCHERICHIA COLI [E. COLI] 03/15/2020 JUAN CARLOS GARDUNO MD Ot D64. 9 ANEMIA, UNSPECIFIED 03/15/2020 JUAN CARLOS GARDUNO MD Ot E03. 9 HYPOTHYROIDISM, UNSPECIFIED 03/15/2020 JUAN CARLOS GARDUNO MD Ot E78. 00 PURE HYPERCHOLESTEROLEMIA, UNSPECIFIED 03/15/2020 JUAN CARLOS GARDUNO MD Ot E87. 2 ACIDOSIS 03/15/2020 JUAN CARLOS GARDUNO MD Ot F32. 9 MAJOR DEPRESSIVE DISORDER, SINGLE EPISOD 03/15/2020 JUAN CARLOS GARDUNO MD Ot F41. 9 ANXIETY DISORDER, UNSPECIFIED 03/15/2020 JUAN CARLOS GARDUNO MD Ot G43.909 MIGRAINE, UNSP, NOT INTRACTABLE, WITHOUT 03/15/2020 JUAN CARLOS GARDUNO MD Ot I10 ESSENTIAL (PRIMARY) HYPERTENSION 03/15/2020 JUAN CARLOS GARDUNO MD Ot I21. A1 MYOCARDIAL INFARCTION TYPE 2 03/15/2020 JUAN CARLOS GARDUNO MD Ot I25. 10 ATHSCL HEART DISEASE OF [place] CORONARY 03/15/2020 JUAN CARLOS GARDUNO MD Ot I48. 0 PAROXYSMAL ATRIAL FIBRILLATION 03/15/2020 JUAN CARLOS GARDUNO MD Ot J18. 9 PNEUMONIA, UNSPECIFIED ORGANISM 03/15/2020 JUAN CARLOS GARDUNO MD Ot J96. 00 ACUTE RESPIRATORY FAILURE, UNSP W HYPOXI 03/15/2020 JUAN CARLOS GARDUNO MD Ot K57. 90 DVRTCLOS OF INTEST, PART UNSP, W/O PERF 03/15/2020 JUAN CARLOS GARDUNO MD Ot K64. 9 UNSPECIFIED HEMORRHOIDS 03/15/2020 JUAN CARLOS GARDUNO MD Ot M19. 91 PRIMARY OSTEOARTHRITIS, UNSPECIFIED SITE 03/15/2020 JUAN CARLOS GARDUNO MD Ot N17. 9 ACUTE KIDNEY FAILURE, UNSPECIFIED 03/15/2020 JUAN CARLOS GARDUNO MD Ot N39. 0 URINARY TRACT INFECTION, SITE NOT SPECIF 03/15/2020 JUAN CARLOS GARDUNO MD Ot N42. 9 DISORDER OF PROSTATE, UNSPECIFIED 03/15/2020 JUAN CARLOS GARDUNO MD Ot R04. 2 HEMOPTYSIS 03/15/2020 JUAN CARLOS GARDUNO MD Ot R65. 21 SEVERE SEPSIS WITH SEPTIC SHOCK 03/15/2020 JUAN CARLOS GARDUNO MD Ot Z20.828 CONTACT W AND EXPOSURE TO OTH VIRAL COMM 03/15/2020 JUAN CARLOS GARDUNO MD Ot Z79. 01 FDC (CURRENT) USE OF ANTICOAGULANT 03/15/2020 JUAN CARLOS [...] Ot I25. 10 ATHSCL HEART DISEASE OF [place] CORONARY 03/16/2020 JUAN CARLOS GARDUNO MD Ot [...] K64. 9 UNSPECIFIED HEMORRHOIDS 03/16/2020 JUAN CARLOS GRADUNO MD Ot M19. 91 PRIMARY OSTEOARTHRITIS, UNSPECIFIED [...] JUAN CARLOS GARDUNO MD Ot Z79. 01 WRAPPER [employer]ITCHER (CURRENT) USE OF ANTICOAGULANT 03/16/2020 JUAN CARLOS [...] MD Ot D64. 9 ANEMIA, UNSPECIFIED 03/16/2020 SHAAN DRAPER, JUAN CARLOS Estevez Ot E03. 9 HYPOTHYROIDISM, UNSPECIFIED 03/16/2020 SHAAN DRAPER, JUAN CARLOS Estevez Ot E78. 00 PURE HYPERCHOLESTEROLEMIA, UNSPECIFIED 03/16/2020 SHAAN DRAPER, JUAN CARLOS Estevez Ot E87. 2 ACIDOSIS 03/16/2020 SHAAN DRAPER, JUAN CARLOS Estevez Ot F32. 9 MAJOR DEPRESSIVE DISORDER, SINGLE EPISOD 03/16/2020 SHAAN DRAPER, JUANC ARLOS Estevez Ot F41. 9 ANXIETY DISORDER, UNSPECIFIED 03/16/2020 SHAAN DRAPER, JUAN CARLOS Estevez Ot G43.909 MIGRAINE, UNSP, NOT INTRACTABLE, WITHOUT 03/16/2020 SHAAN DRAPER, JUAN CARLOS Estevez Ot I10 ESSENTIAL (PRIMARY) HYPERTENSION 03/16/2020 SHAAN DRAPER, JUAN CARLOS Estevez Ot I21. A1 MYOCARDIAL INFARCTION TYPE 2 03/16/2020 SHAAN DRAPER, JUAN CARLOS Estevez Ot I25. 10 ATHSCL HEART DISEASE OF [place] CORONARY 03/16/2020 SHAAN DRAPER, JUAN CARLOS Estevez Ot I48. 0 PAROXYSMAL ATRIAL FIBRILLATION 03/16/2020 SHAAN DRAPER, JUAN CARLOS Estevez Ot J18. 9 PNEUMONIA, UNSPECIFIED ORGANISM 03/16/2020 SHAAN DRAPER, JUAN CARLOS Estevze Ot J96. 00 ACUTE RESPIRATORY FAILURE, UNSP W HYPOXI 03/16/2020 SHAAN DRAPER, JUAN CARLOS Estevez Ot K57. 90 DVRTCLOS OF INTEST, PART UNSP, W/O PERF 03/16/2020 SHAAN DRAPER, JUAN CARLOS Estevez Ot K64. 9 UNSPECIFIED HEMORRHOIDS 03/16/2020 SHAAN DRAPER, JUAN CARLOS Estevez Ot M19. 91 PRIMARY OSTEOARTHRITIS, UNSPECIFIED SITE 03/16/2020 SHAAN DRAPER, JUAN CARLOS Estevez Ot N17. 9 ACUTE KIDNEY FAILURE, UNSPECIFIED 03/16/2020 SHAAN DRAPER, JUAN CARLOS Estevez Ot N39. 0 URINARY TRACT INFECTION, SITE NOT SPECIF 03/16/2020 SHAAN DRAPER, JUAN CARLOS Estevez Ot N42. 9 DISORDER OF PROSTATE, UNSPECIFIED 03/16/2020 SHAAN DRAPER, JUAN CARLOS Estevez Ot R04. 2 HEMOPTYSIS 03/16/2020 JUAN CARLOS GARDUNO MD Ot R65. 21 SEVERE SEPSIS WITH SEPTIC SHOCK 03/16/2020 JUAN CARLOS GARDUNO MD Ot Z20.828 CONTACT W AND EXPOSURE TO OTH VIRAL COMM 03/16/2020 JUAN CARLOS GARDUNO MD Ot Z79. 01 FDC (CURRENT) USE OF ANTICOAGULANT 03/16/2020 JUAN CARLOS [...] Ot Z90. 81 ACQUIRED ABSENCE OF SPLEEN 04/01/2020 TERESA MENESES MD Ot E03. 9 HYPOTHYROIDISM, UNSPECIFIED 04/01/2020 TERESA MENESES MD Ot E78. 00 PURE HYPERCHOLESTEROLEMIA, UNSPECIFIED 04/01/2020 TERESA MENESES MD Ot F32. 9 MAJOR DEPRESSIVE DISORDER, SINGLE EPISOD 04/01/2020 TERESA MENESES MD Ot F41. 9 ANXIETY DISORDER, UNSPECIFIED 04/01/2020 TERESA MENESES MD Ot I10 ESSENTIAL (PRIMARY) HYPERTENSION 04/01/2020 TERESA MENESES MD Ot I48. 91 UNSPECIFIED ATRIAL FIBRILLATION 04/01/2020 TERESA MENESES MD Ot R07. 9 CHEST PAIN, UNSPECIFIED 04/01/2020 TERESA MENESES MD Ot R53. 81 OTHER MALAISE 04/01/2020 TERESA MENESES MD Ot Z79. 01 WRAPPER STITCHER (CURRENT) USE OF ANTICOAGULANT 04/01/2020 TERESA MENESES MD Ot Z79.890 HORMONE REPLACEMENT THERAPY 04/01/2020 TERESA MENESES MD Ot Z82. 49 FAMILY HX OF ISCHEM HEART DIS AND OTH DI 04/01/2020 TERESA MENESES MD Ot Z85.038 PERSONAL HISTORY OF MALIGNANT NEOPLASM O 04/01/2020 TERESA MENESES MD Ot Z86.711 PERSONAL HISTORY OF PULMONARY EMBOLISM 04/01/2020 TERESA MENESES MD Ot Z87.828 PERSONAL HISTORY OF OTH (HEALED) PHYSICA 04/01/2020 TERESA MENESES MD Ot Z87.891 PERSONAL HISTORY OF NICOTINE DEPENDENCE 04/01/2020 TERESA MENESES MD Ot Z91.041 RADIOGRAPHIC DYE ALLERGY STATUS 04/03/2020 JUAN MANUEL EVANS DO Ot A41.51 SEPSIS DUE TO ESCHERICHIA COLI [E. COLI] 04/03/2020 EVANS DO, JUAN MANUEL Ot B18.2 CHRONIC VIRAL HEPATITIS C 04/03/2020 EVANS DO, JUAN MANUEL Ot C18.9 MALIGNANT NEOPLASM OF COLON, UNSPECIFIED 04/03/2020 EVANS DO, JUAN MANUEL Ot E03.9 HYPOTHYROIDISM, UNSPECIFIED 04/03/2020 EVANS DO, JUAN MANUEL Ot E78.5 HYPERLIPIDEMIA, UNSPECIFIED 04/03/2020 EVANS DO, JUAN MANUEL Ot E87.2 ACIDOSIS 04/03/2020 EVANS DO, JUAN MANUEL Ot F32.9 MAJOR DEPRESSIVE DISORDER, SINGLE EPISOD 04/03/2020 EVANS DO, JUAN MANUEL Ot F41.9 ANXIETY DISORDER, UNSPECIFIED 04/03/2020 EVANS DO, JUAN MANUEL Ot F60.3 BORDERLINE PERSONALITY DISORDER 04/03/2020 EVANS DO, JUAN MANUEL Ot G72.81 CRITICAL ILLNESS MYOPATHY 04/03/2020 EVANS DO, JUAN MANUEL Ot G89.4 CHRONIC PAIN SYNDROME 04/03/2020 EVANS DO, JUAN MANUEL Ot I10 ESSENTIAL (PRIMARY) HYPERTENSION 04/03/2020 EVANS DO, JUAN MANUEL Ot I21.A1 MYOCARDIAL INFARCTION TYPE 2 04/03/2020 EVANS DO, JUAN MANUEL Ot I48.0 PAROXYSMAL ATRIAL FIBRILLATION 04/03/2020 EVANS DO, JUAN MANUEL Ot I48.92 UNSPECIFIED ATRIAL FLUTTER 04/03/2020 EVANS DO, JUAN MANUEL Ot K21.9 GASTRO-ESOPHAGEAL REFLUX DISEASE WITHOUT 04/03/2020 EVANS DO, JUAN MANUEL Ot M19.91 PRIMARY OSTEOARTHRITIS, UNSPECIFIED SITE 04/03/2020 EVANS DO, JUAN MANUEL Ot N12 TUBULO-INTERSTITIAL NEPHRITIS, NOT SPCF 04/03/2020 EVANS DO, JUAN MANUEL Ot R41.0 DISORIENTATION, UNSPECIFIED 04/03/2020 EVANS DO, JUAN MANUEL Ot Z79.01 FDC (CURRENT) USE OF ANTICOAGULANT 04/03/2020 EVANS DO, JUAN MANUEL Ot Z86.71 1 PERSONAL HISTORY OF PULMONARY EMBOLISM 04/03/2020 EVANS DO, JUAN MANUEL Ot Z90.81 ACQUIRED ABSENCE OF SPLEEN 04/03/2020 EVANS DO, JUAN MANUEL Ot Z98.1 ARTHRODESIS STATUS 04/05/2020 JUAN CARLOS GARDUNO MD Ot A41. 51 SEPSIS DUE TO ESCHERICHIA COLI [E. COLI] 04/05/2020 JUAN CARLOS GARDUNO MD Ot D64. 9 ANEMIA, UNSPECIFIED 04/05/2020 GARDUNO MD, JUAN CARLOS D Ot E03. 9 HYPOTHYROIDISM, UNSPECIFIED 04/05/2020 SHAAN DRAPER, JUAN CARLOS Estevez Ot E78. 00 PURE HYPERCHOLESTEROLEMIA, UNSPECIFIED 04/05/2020 SHAAN DRAPER, JUAN CARLOS Estevez Ot E87. 2 ACIDOSIS 04/05/2020 SHAAN DRAPER, JUAN CARLOS Estevez Ot F32. 9 MAJOR DEPRESSIVE DISORDER, SINGLE EPISOD 04/05/2020 SHAAN DRAPER, JUAN CARLOS Estevez Ot F41. 9 ANXIETY DISORDER, UNSPECIFIED 04/05/2020 SHAAN DRAPER, JUAN CARLOS Estevez Ot G43.909 MIGRAINE, UNSP, NOT INTRACTABLE, WITHOUT 04/05/2020 SHAAN DRAPER, JUAN CARLOS Estevez Ot I10 ESSENTIAL (PRIMARY) HYPERTENSION 04/05/2020 SHAAN DRAPER, JUAN CARLOS Estevez Ot I21. A1 MYOCARDIAL INFARCTION TYPE 2 04/05/2020 JUAN CARLOS GARDUNO MD Ot I25. 10 ATHSCL HEART DISEASE OF [place] CORONARY 04/05/2020 JUAN CARLOS GARDUNO MD Ot I48. 0 PAROXYSMAL ATRIAL FIBRILLATION 04/05/2020 JUAN CARLOS GARDUNO MD Ot J18. 9 PNEUMONIA, UNSPECIFIED ORGANISM 04/05/2020 JUAN CARLOS GARDUNO MD Ot J96. 00 ACUTE RESPIRATORY FAILURE, UNSP W HYPOXI 04/05/2020 JUAN CARLOS GARDUNO MD Ot K57. 90 DVRTCLOS OF INTEST, PART UNSP, W/O PERF 04/05/2020 JUAN CARLOS GARDUNO MD Ot K64. 9 UNSPECIFIED HEMORRHOIDS 04/05/2020 JUAN CARLOS GARDUNO MD Ot M19. 91 PRIMARY OSTEOARTHRITIS, UNSPECIFIED SITE 04/05/2020 JUAN CARLOS GARDUNO MD Ot N17. 9 ACUTE KIDNEY FAILURE, UNSPECIFIED 04/05/2020 JUAN CARLOS GARDUNO MD Ot N39. 0 URINARY TRACT INFECTION, SITE NOT SPECIF 04/05/2020 SHAAN DRAPER, JUAN CARLOS Estevez Ot N42. 9 DISORDER OF PROSTATE, UNSPECIFIED 04/05/2020 SHAAN DRAPER, JUAN CARLOS Estevez Ot R04. 2 HEMOPTYSIS 04/05/2020 JUAN CARLOS GARDUNO MD Ot R65. 21 SEVERE SEPSIS WITH SEPTIC SHOCK 04/05/2020 JUAN CARLOS GARDUNO MD Ot Z20.828 CONTACT W AND EXPOSURE TO OTH VIRAL COMM 04/05/2020 JUAN CARLOS GARDUNO MD Ot Z79. 01 WRAPPER STITCHER (CURRENT) USE OF ANTICOAGULANT 04/05/2020 JUAN CARLOS GARDUNO MD Ot Z85.038 PERSONAL HISTORY OF MALIGNANT NEOPLASM O 04/05/2020 SHAAN DRAPER, JUAN CARLOS Estevez Ot Z86. 19 PERSONAL HISTORY OF OTHER INFECTIOUS AND 04/05/2020 SHAAN DRAPER, UJAN CARLOS Estevez Ot Z86.711 PERSONAL HISTORY OF PULMONARY EMBOLISM 04/05/2020 SHAAN DRAPER, JUAN CARLOS Estevez Ot Z87.891 PERSONAL HISTORY OF NICOTINE DEPENDENCE 04/05/2020 SHAAN DRAPER, JUAN CARLOS Estevez Ot Z90. 81 ACQUIRED ABSENCE OF SPLEEN 04/05/2020 SHAAN DRAPER, JUAN CARLOS Estevez Ot A41. 51 SEPSIS DUE TO ESCHERICHIA COLI [E. COLI] 04/05/2020 SHAAN DRAPER, JUAN CARLOS Estevez Ot D64. 9 ANEMIA, UNSPECIFIED 04/05/2020 SHAAN DRAPER, JUAN CARLOS Estevez Ot E03. 9 HYPOTHYROIDISM, UNSPECIFIED 04/05/2020 SHAAN DRAPER, JUAN CARLOS Estevez Ot E78. 00 PURE HYPERCHOLESTEROLEMIA, UNSPECIFIED 04/05/2020 SHAAN DRAPER, JUAN CARLOS Estevez Ot E87. 2 ACIDOSIS 04/05/2020 SHAAN DRAPER, JUAN CARLOS Estevez Ot F32. 9 MAJOR DEPRESSIVE DISORDER, SINGLE EPISOD 04/05/2020 SHAAN DRAPER, JUAN CARLOS Estevez Ot F41. 9 ANXIETY DISORDER, UNSPECIFIED 04/05/2020 SHAAN DRAPER, JUAN CARLOS Estevez Ot G43.909 MIGRAINE, UNSP, NOT INTRACTABLE, WITHOUT 04/05/2020 SHAAN DRAPER, JUAN CARLOS Estevez Ot I10 ESSENTIAL (PRIMARY) HYPERTENSION 04/05/2020 SHAAN DRAPER, JUAN CARLOS Estevez Ot I21. A1 MYOCARDIAL INFARCTION TYPE 2 04/05/2020 SHAAN DRAPER, JUAN CARLOS Estevez Ot I25. 10 ATHSCL HEART DISEASE OF [place] CORONARY 04/05/2020 SHAAN DRAPER, JUAN CARLOS Estevez Ot I48. 0 PAROXYSMAL ATRIAL FIBRILLATION 04/05/2020 SHAAN DRAPER, JUAN CARLOS Estevez Ot J18. 9 PNEUMONIA, UNSPECIFIED ORGANISM 04/05/2020 SHAAN DRAPER, JUAN CARLOS Estevez Ot J96. 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 9 UNSPECIFIED HEMORRHOIDS 04/05/2020 JUAN CARLOS GARDUNO MD Ot M19. 91 PRIMARY OSTEOARTHRITIS, UNSPECIFIED SITE 04/05/2020 JUAN CARLOS GARDUNO MD Ot N17. 9 ACUTE KIDNEY FAILURE, UNSPECIFIED 04/05/2020 JUAN CARLOS GARDUNO MD Ot N39. 0 URINARY TRACT INFECTION, SITE NOT SPECIF 04/05/2020 SHAAN DRAPER, JUAN CARLOS Estevez Ot N42. 9 DISORDER OF PROSTATE, UNSPECIFIED 04/05/2020 SHAAN DRAPER, JUAN CARLOS Estevez Ot R04. 2 HEMOPTYSIS 04/05/2020 SHAAN DRAPER, JUAN CARLOS Estevez Ot R65. 21 SEVERE SEPSIS WITH SEPTIC SHOCK 04/05/2020 SHAAN DRAPER, JUAN CARLOS Estevez Ot Z20.828 CONTACT W AND EXPOSURE TO OTH VIRAL COMM 04/05/2020 SHAAN DRAPER, JUAN CARLOS Estevez Ot Z79. 01 WRAPPER STITCHER (CURRENT) USE OF ANTICOAGULANT 04/05/2020 SHAAN DRAPER, JUAN CARLOS Estevez Ot Z85.038 PERSONAL HISTORY OF MALIGNANT NEOPLASM O 04/05/2020 SHAAN DRAPER, JUAN CARLOS Estevez Ot Z86. 19 PERSONAL HISTORY OF OTHER INFECTIOUS AND 04/05/2020 SHAAN DRAPER, JUAN CARLOS Estevez Ot Z86.711 PERSONAL HISTORY OF PULMONARY EMBOLISM 04/05/2020 SHAAN DRAPER, JUAN CARLOS Estevez Ot Z87.891 PERSONAL HISTORY OF NICOTINE DEPENDENCE 04/05/2020 SHAAN DRAPER, JUAN CARLOS Estevez Ot Z90. 81 ACQUIRED ABSENCE OF SPLEEN 04/05/2020 SHAAN DRAPER, JUAN CARLOS Estevez Ot A41. 51 SEPSIS DUE TO ESCHERICHIA COLI [E. COLI] 04/05/2020 SHAAN DRAPER, JUAN CARLOS Estevez Ot D64. 9 ANEMIA, UNSPECIFIED 04/05/2020 SHAAN DRAPER, JUAN CARLOS Estevez Ot E03. 9 HYPOTHYROIDISM, UNSPECIFIED 04/05/2020 SHAAN DRAPER, JUAN CARLOS Estevez Ot E78. 00 PURE HYPERCHOLESTEROLEMIA, UNSPECIFIED 04/05/2020 SHAAN DRAPER, JUAN CARLOS Estevez Ot E87. 2 ACIDOSIS 04/05/2020 SHAAN DRAPER, JUAN CARLOS Estevez Ot F32. 9 MAJOR DEPRESSIVE DISORDER, SINGLE EPISOD 04/05/2020 SHAAN DRAPER, JUAN CARLOS Estevez Ot F41. 9 ANXIETY DISORDER, UNSPECIFIED 04/05/2020 SHAAN DRAPER, JUAN CARLOS Estevez Ot G43.909 MIGRAINE, UNSP, NOT INTRACTABLE, WITHOUT 04/05/2020 SHAAN DRAPER, JUAN CARLOS Estevez Ot I10 ESSENTIAL (PRIMARY) HYPERTENSION 04/05/2020 SHAAN DRAPER, JUAN CARLOS Estevez Ot I21. A1 MYOCARDIAL INFARCTION TYPE 2 04/05/2020 SHAAN DRAPER, JUAN CARLOS Estevez Ot I25. 10 ATHSCL HEART DISEASE OF [place] CORONARY 04/05/2020 SHAAN DRAPER, JUAN CARLOS Estevez Ot I48. 0 PAROXYSMAL ATRIAL FIBRILLATION 04/05/2020 SHAAN DRAPER, JUAN CARLOS Estevez Ot J18. 9 PNEUMONIA, UNSPECIFIED ORGANISM 04/05/2020 JUAN CARLOS GARDUNO MD Ot J96. 00 ACUTE RESPIRATORY FAILURE, UNSP W HYPOXI 04/05/2020 JUAN CARLOS GARDUNO MD Ot K57. 90 DVRTCLOS OF INTEST, PART UNSP, W/O PERF 04/05/2020 JUAN CARLOS GARDUNO MD Ot K64. 9 UNSPECIFIED HEMORRHOIDS 04/05/2020 JUAN CARLOS GARDUNO MD Ot M19. 91 PRIMARY OSTEOARTHRITIS, UNSPECIFIED SITE 04/05/2020 JUAN CARLOS GARDUNO MD Ot N17. 9 ACUTE KIDNEY FAILURE, UNSPECIFIED 04/05/2020 JUAN CARLOS GARDUNO MD Ot N39. 0 URINARY TRACT INFECTION, SITE NOT SPECIF 04/05/2020 JUAN CARLOS GARDUNO MD, Ot N42. 9 DISORDER OF PROSTATE, UNSPECIFIED 04/05/2020 JUAN CARLOS GARDUNO MD Ot R04. 2 HEMOPTYSIS 04/05/2020 JUAN CARLOS GARDUNO MD Ot R65. 21 SEVERE SEPSIS WITH SEPTIC SHOCK 04/05/2020 JUAN CARLOS GARDUNO MD Ot Z20.828 CONTACT W AND EXPOSURE TO OTH VIRAL COMM 04/05/2020 JUAN CARLOS GARDUNO MD Ot Z79. 01 WRAPPER STITCHER (CURRENT) USE OF ANTICOAGULANT 04/05/2020 JUAN CARLOS GARDUNO MD Ot Z85.038 PERSONAL HISTORY OF MALIGNANT NEOPLASM O 04/05/2020 JUAN CRALOS GARDUNO MD Ot Z86. 19 PERSONAL HISTORY OF OTHER INFECTIOUS AND 04/05/2020 JUAN CARLOS GARDUNO MD Ot Z86.711 PERSONAL HISTORY OF PULMONARY EMBOLISM 04/05/2020 JUAN CARLOS GARDUNO MD Ot Z87.891 PERSONAL HISTORY OF NICOTINE DEPENDENCE 04/05/2020 JUAN CARLOS GARDUNO MD Ot Z90. 81 ACQUIRED ABSENCE OF SPLEEN Procedures Code Description Performed By Per formed On 45.23 COLO NOSCOPY 02/16/2011 86.22 EXCI S DEBRIDE OF WOUND, INFECT, OR BURN 02/18/2011 86.04 OTHE R SKIN SUBQ I D 03/23/2011 41085 PSYC H IND W/MED CK 20 09/06/2012 23775 ROUT INE VENIPUNCTURE 02/13/2014 90910 INR (IN HOUSE) 02/13/2014 36914 CBC 02/13/2014 12885 CMP 02/13/2014 [id number] GF R CALC (RESULT ONLY) 02/13/2014 37909 SONDRA MIN D 25-HYDROXY (D2,D3, TOTAL) 02/13/2014 50169 VIT B 12 02/13/2014 96851 TSH 02/13/2014 TESTFRTOT TESTOSTERONE FREE AND TOTAL MALE 02/13/2014 00322 ROUT INE VENIPUNCTURE 02/19/2014 29751 LIPI D PANEL 02/19/2014 J1080 Depo -Testosterone 200 mg/mL oil 03/12/2014 32666 THER APUTIC INJ SQ/IM 04/11/2014 35985 THER APUTIC INJ SQ/IM 05/08/2014 24594 THER APUTIC INJ SQ/IM 06/20/2014 54949 THER APUTIC INJ SQ/IM 06/20/2014 04306 ROUT INE VENIPUNCTURE 06/21/2014 09079 UA L PRABHAKAR DIP 06/21/2014 TESTFRTOT TESTOSTERONE FREE AND TOTAL MALE 06/22/2014 99589 TEST OSTERONE TOTAL MALES 07/23/2014 20807 THER APUTIC INJ SQ/IM 07/23/2014 J1080 Depo -Testosterone 200 mg/mL oil 07/23/2014 53686 THER APUTIC INJ SQ/IM 08/20/2014 05539 THER APUTIC INJ SQ/IM 09/27/2014 36023 [employer]ITOX 11/05/2014 66002 THER APUTIC INJ SQ/IM 12/21/2014 99.61 ATRI AL CARDIOVERSION 02/17/2015 37.22 LEFT HEART CARDIAC CATH 02/18/2015 88.42 CONT RAST AORTOGRAM 02/18/2015 88.53 LT H EART ANGIOCARDIOGRAM 02/18/2015 88.56 ZACKERY WILLIAM ARTERIOGR-2 CATH 02/18/2015 [id number] ME ASURE OF CARDIAC SAMPL PRESSURE, L H 09/24/2017 [id number] FL UOROSCOPY OF MULT COR ART USING L OSM 09/24/2017 [id number] FL UOROSCOPY OF LEFT HEART USING LOW OSMO 09/24/2017 [id number] ME ASURE OF CARDIAC SAMPL PRESSURE, L H 10/13/2018 [id number] FL UOROSCOPY OF MULT COR ART USING L OSM 10/13/2018 [id number] FL UOROSCOPY OF LEFT HEART USING LOW OSMO 10/13/2018 [id number] FL UOROSCOPY OF THORACIC AORTA USING LOW 10/13/2018 [id number] IN SERTION OF ENDOTRACHEAL AIRWAY INTO TR 03/13/2020 [id number] RE SPIRATORY VENTILATION, 24- 96 CONSECUTI 03/13/2020 [...] coagulation assay See Footnote NR Prothrombin gene [id number] mutation detect ion - 08/23/17 11:01 Prothrombin gene [id number] mutation detection See fo otnote [facility] Comprehensive metabolic panel - 09/01/17 [...] detection by PCR with reflex to quantitation [id number] <=11 HEPATITIS C GENOTYPE - 11/12/17 11:55 [...] CORRECTED 10.1 mg/dL 8.5-10.1 Serum or plasma [id number]-0-wchvptuxhvr.tumo r marker measurement (mass/volume) - 06/24/18 12:38 Serum or plasma [id number]-6-[id number].tumo r marker measurement (mass/volume) 6.0 % 0.0-8.8 [...] volume) 1.12 ng/dL 0.70-1.48 Serum or plasma pmxmk-7-biwhacpgpad.tumo r marker measurement (mass/volume) - 10/04/18 10:34 Serum or plasma ipvrg-5-dqgsyucemtj.tumo r marker measurement (mass/volume) 6.0 % 0.0-8.8 [...] 0.058 ng/mL <0.028 THYROID STIMULATING HORMONE - 01/23/19 2 0:30 THYROID STIMULATING HORMONE 4.22 u[iU]/mL [...] Negative Urine-Blood Negative Negative Urine-Color Yellow Colorless-[place] Urine-Glucose Negative Negative Urine-Ketones Negative Negative Urine-Leukocytes Negative Negative Urine-Mucus 1+ Urine-Nitrite Negative Negative Urine-Other Urine Saved if Culture Need ed (48hrs from time of collection) Urine-pH 5.5 5-8.5 Urine-Protein Negative Negative Urine-RBC Negative Urine-Specific [place] 1.010 1.000-1 .030 Urine-WBC Rare/HPF Urobilinogen 0.2 [...] Negative Urine-Blood Negative Negative Urine-Color Yellow Colorless-[place] Urine-Epithelial Cells 0-5/HPF Urine-Glucose Negative Negative Urine-Ketones Negative Negative Urine-Leukocytes Negative Negative Urine-Mucus 1+ Urine-Nitrite Negative Negative Urine-Other Urine Saved if Culture Need ed (48hrs from time of collection) Urine-pH 6.0 5-8.5 Urine-Protein Trace Negative Urine-RBC 0-2/HPF Urine-Specific [place] 1.015 1.000-1 .030 Urine-WBC 0-2/HPF Urobilinogen 0.2 [...] finding identification by light micr oscopy OK [facility] Comprehensive metabolic panel - 01/17/20 17:35 [...] calculation of estimated glomerular filtration rate 59 NR Serum or plasma glucose measurement (mass/volume) 116 [...] culture - 03/11/20 21:05 Bacterial urine culture [id number] NRG COLONY COUNT >100,000/ML NRG SUSCEPTIBILITY SUSCEPTIBILITY REPORTED 03/13/20 12: 20 NRG RAPID ID PRELIM RAPID ID TEST AT [facility] 03/12 07:30 NRG ID CONFIRMATION RML [...] ncentration <= NRG Nitrofurantoin susceptibility test by mi nimum inhibitory concentration <= NRG Amoxicillin and [...] Staphylococcus aureus (MRSA) scr eening culture NEG [facility] Bacterial blood culture - 03/12/20 08:35 Bacterial blood culture NG [facility] Bacterial blood culture - 03/12/20 08:38 QUANTITY OF GROWTH . [facility] Bacterial blood culture SEE COMMEN [facility] Bacterial blood culture - 03/12/20 18:00 Bacterial blood culture NG [facility] Whole blood basic metabolic panel - 02/19 [...] by light microscopy SLIGH T NRG Blood mariela cells detection by light microscopy SLI GHT NRG Acanthocyte detection SLIGHT NRG Blood schistocytes detection by light microscopy S LIGHT NRG Blood lactic acid measurement (moles/vol ume) - 03/13/20 06:01 Blood lactic acid measurement (moles/volume) 0.64 mmol/L 0.50-2.00 Bacterial blood culture - 03/13/20 06:01 Bacterial blood culture NG NRG Bacterial blood culture - 03/13/20 06:16 QUANTITY OF GROWTH Isolated NRG Bacterial blood culture [id number] NRG SUSCEPTIBILITY SUSCEPTIBILITY REPORTED 03/16 10:45 NRG [...] GOLD QUANTIFERON PLUS - 03/13/20 08:4 0 [id number] 0.00 [iU]/mL 0.00-0.34 QuantiFERON-TB test Negative Negative [...] urine culture NG NRG Coronavirus SARS-CoV-2 SO 2019 - 0 05:35 Coronavirus Ab [Units/volume] in [...] by glucometer (mas s/volume) 117 mg/dL 70-110 Complete blood count (CBC) with automate d white blood cell (WBC) differential - 03/28/20 23:46 Blood leukocytes automated count (number/volume) 9.5 10*3/uL 4.3-11.0 Blood erythrocytes automated count (number/volume) 3.99 10*6/uL 4.35-5.85 Venous blood hemoglobin measurement (mass/volume) 10.9 g/dL 13.3-17.7 Blood hematocrit (volume fraction) 33 % 40-54 Automated erythrocyte mean corpuscular volume 82 [ foz_us] 80-99 Automated erythrocyte mean corpuscular h emoglobin (mass per erythrocyte) 27 pg 25-34 Automated erythrocyte mean corpuscular h emoglobin concentration measurement (mass/volume) 34 g/dL 32-36 Automated erythrocyte distribution width ratio 14. 9 % 10.0- 14.5 Automated blood platelet count (count/volume) 642 10*3/uL 130-400 Automated blood platelet mean volume measurement 10.1 [foz_us] 7.4-10.4 Automated blood neutrophils/100 leukocytes 72 % 42-75 Automated blood lymphocytes/100 leukocytes 12 % 12-44 Blood monocytes/100 leukocytes 12 % 0-12 Automated blood eosinophils/100 leukocytes 4 % 0-10 Automated blood basophils/100 leukocytes 1 % 0-10 Blood neutrophils automated count (number/volume) 6.9 10*3 1.8-7.8 Blood lymphocytes automated count (number/volume) 1.1 10*3 1.0-4.0 Blood monocytes automated count (number/volume) 1. 1 10*3 0.0-1.0 Automated eosinophil count 0.3 10*3/uL 0 .0-0.3 Automated blood basophil count (count/volume) 0.1 10*3/uL 0.0-0.1 PT panel in platelet poor plasma by coag ulation assay - 03/28/20 23:46 Prothrombin time (PT) in platelet poor plasma by coagu lation assay 16.0 s 12.2-14.7 INR in platelet poor plasma or blood by coagulation as say 1.3 0.8-1.4 Activated partial thromboplastin time (a PTT) in platelet poor plasma bycoagulation assay - 03/28/20 23:46 Activated partial thromboplastin time (a PTT) in platelet poor plasma bycoagulation assay 28 s 24-35 TROPONIN I FS - 03/28/20 23:46 TROPONIN I FS < 0.30 <0.30 Comprehensive metabolic panel - 03/28/20 23:46 Serum or plasma sodium measurement (moles/volume) 138 mmol/L 135-145 Serum or plasma potassium measurement (moles/volume) 3.2 mmol/L 3.6-5.0 Serum or plasma chloride measurement (moles/volume) 104 mmol/L 98-107 Carbon dioxide 24 mmol/L 21-32 Serum or plasma anion gap determination (moles/volume) 10 mmol/L 5-14 Serum or plasma urea nitrogen measurement (mass/volume ) 15 mg/dL 7-18 Serum or plasma creatinine measurement (mass/volume) 1.07 mg/dL 0.60-1.30 Serum or plasma urea nitrogen/creatinine mass ratio 14 NRG Serum or plasma creatinine measurement w ith calculation of estimated glomerular filtration rate > NRG Serum or plasma glucose measurement (mass/volume) 105 mg/dL 70-105 Serum or plasma calcium measurement (mass/volume) 9.0 mg/dL 8.5-10.1 Serum or plasma total bilirubin measurement (mass/volu me) 0.6 mg/dL 0.1-1.0 Serum or plasma alkaline phosphatase javon surement (enzymatic activity/volume) 93 U/L 40-136 Serum or plasma aspartate aminotransfera se measurement (enzymatic activity/volume) 19 U/L 5-34 Serum or plasma alanine aminotransferase measurement (enzymatic activity/volume) 26 U/L 0-55 Serum or plasma protein measurement (mass/volume) 6.2 g/dL 6.4-8.2 Serum or plasma albumin measurement (mass/volume) 3.6 g/dL 3.2-4.5 CALCIUM CORRECTED 9.3 mg/dL 8.5-10.1 Magnesium - 03/28/20 23:46 Magnesium 2.0 mg/dL 1.6-2.4 Myoglobin, serum - 03/28/20 23:46 Myoglobin, serum 67.4 ng/mL 10.0-92.0 Lipase - 03/28/20 23:46 Lipase 30 U/L 8-78 PROBNP FS - 03/28/20 23:46 PROBNP FS 1770.0 pg/mL <75.0 Complete blood count (CBC) with automate d white blood cell (WBC) differential - 03/29/20 17:10 Blood leukocytes automated count (number/volume) 6.3 10*3/uL 4.3-11.0 Blood erythrocytes automated count (number/volume) 4.14 10*6/uL 4.35-5.85 Venous blood hemoglobin measurement (mass/volume) 11.6 g/dL 13.3-17.7 Blood hematocrit (volume fraction) 34 % 40-54 Automated erythrocyte mean corpuscular volume 81 [ foz_us] 80-99 Automated erythrocyte mean corpuscular h emoglobin (mass per erythrocyte) 28 pg 25-34 Automated erythrocyte mean corpuscular h emoglobin concentration measurement (mass/volume) 34 g/dL 32-36 Automated erythrocyte distribution width ratio 15. 6 % 10.0- 14.5 Automated blood platelet count (count/volume) 688 10*3/uL 130-400 Automated blood platelet mean volume measurement 10.2 [foz_us] 7.4-10.4 Automated blood neutrophils/100 leukocytes 70 % 42-75 Automated blood lymphocytes/100 leukocytes 13 % 12-44 Blood monocytes/100 leukocytes 14 % 0-12 Automated blood eosinophils/100 leukocytes 3 % 0-10 Automated blood basophils/100 leukocytes 1 % 0-10 Blood neutrophils automated count (number/volume) 4.4 10*3 1.8-7.8 Blood lymphocytes automated count (number/volume) 0.8 10*3 1.0-4.0 Blood monocytes automated count (number/volume) 0. 9 10*3 0.0-1.0 Automated eosinophil count 0.2 10*3/uL 0 .0-0.3 Automated blood basophil count (count/volume) 0.1 10*3/uL 0.0-0.1 Comprehensive metabolic panel - 03/29/20 17:10 Serum or plasma sodium measurement (moles/volume) 139 mmol/L 135-145 Serum or plasma potassium measurement (moles/volume) 3.1 mmol/L 3.6-5.0 Serum or plasma chloride measurement (moles/volume) 106 mmol/L 98-107 Carbon dioxide 22 mmol/L 21-32 [...] NRG Serum or plasma glucose measurement (mass/volume) 108 mg/dL 70-105 Serum or plasma calcium measurement (mass/volume) 9.1 mg/dL 8.5-10.1 Serum or plasma total bilirubin measurement (mass/volu me) 0.6 mg/dL 0.1-1.0 Serum or plasma alkaline phosphatase javon surement (enzymatic activity/volume) 96 U/L 40-136 Serum or plasma aspartate aminotransfera se measurement (enzymatic activity/volume) 22 U/L 5-34 Serum or plasma alanine aminotransferase measurement (enzymatic activity/volume) 30 U/L 0-55 Serum or plasma protein measurement (mass/volume) 6.7 g/dL 6.4-8.2 Serum or plasma albumin measurement (mass/volume) 3.8 g/dL 3.2-4.5 CALCIUM CORRECTED 9.3 mg/dL 8.5-10.1 PT panel in platelet poor plasma by coag ulation assay - 03/29/20 17:10 Prothrombin time (PT) in platelet poor plasma by coagu lation assay 15.8 s 12.2-14.7 INR in platelet poor plasma or blood by coagulation as say 1.2 0.8-1.4 Magnesium - 03/29/20 17:10 Magnesium 2.0 mg/dL 1.6-2.4 Serum or plasma lithium measurement (mol es/volume) - 03/29/20 17:10 BNP PT 403.7 pg/mL <100.0 THYROID STIMULATING HORMONE - 03/29/20 1 7:10 THYROID STIMULATING HORMONE 4.10 u[iU]/mL 0.35-4.94 Serum or plasma thyroxine (T4) free man urement (mass/volume) - 03/29/20 17:10 Serum or plasma thyroxine (T4) free measurement (mass/ volume) 1.41 ng/dL 0.70-1.48 PROCALCITONIN (PCT) - 03/29/20 17:10 PROCALCITONIN (PCT) 0.04 ng/mL <0.10 Complete urinalysis with reflex to cultu re - 03/30/20 04:15 Urine color determination YELLOW NRG Urine clarity determination CLOUDY NR G Urine pH measurement by test strip 6.5 5-9 Specific gravity of urine by test strip 1.020 1.016-1.022 Urine protein assay by test strip, semi-quantitative 1+ NEGATIVE Urine glucose detection by automated test strip NE GATIVE NEGATIVE Erythrocytes detection in urine sediment by light micr oscopy 3+ NEGATIVE Urine ketones detection by automated test strip NE GATIVE NEGATIVE Urine nitrite detection by test strip POSITIVE NEGATIVE Urine total bilirubin detection by test strip NEGA TIVE NEGATIVE Urine urobilinogen measurement by automated test strip (mass/volume) 1.0 mg/dL < = 1.0 Urine leukocyte esterase detection by dipstick 3+ NEGATIVE Automated urine sediment erythrocyte cou nt by microscopy (number/high power field) [HPF] NRG Automated urine sediment leukocyte count by microscopy (number/high power field) [HPF] NRG Bacteria detection in urine sediment by light microsco py LARGE NRG Crystals detection in urine sediment by light microsco py NONE NRG Casts detection in urine sediment by light microscopy NONE NRG Mucus detection in urine sediment by light microscopy LARGE NRG Complete urinalysis with reflex to culture YES NRG Bacterial urine culture - 03/30/20 04:15 Bacterial urine culture [id number] NRG COLONY COUNT >100,000/ML NRG SUSCEPTIBILITY SUSCEPTIBILITY REPORTED 03-31-20 05 NRG Dirithromycin susceptibility test by dis k diffusion - 03/30/20 04:15 Gentamicin susceptibility test by minimum inhibitory c [...] ncentration <= NRG Nitrofurantoin susceptibility test by mi nimum inhibitory concentration <= NRG Amoxicillin and clavulanate potassium susc GRETCHEN <= NRG Complete blood count (CBC) with automate d white blood cell (WBC) differential - 03/30/20 05:43 Blood leukocytes automated count (number/volume) 10.8 10*3/uL 4.3-11.0 Blood erythrocytes automated count (number/volume) 4.08 10*6/uL 4.35-5.85 Venous blood hemoglobin measurement (mass/volume) 11.1 g/dL 13.3-17.7 Blood hematocrit (volume fraction) 33 % 40-54 Automated erythrocyte mean corpuscular volume 82 [ foz_us] 80-99 Automated erythrocyte mean corpuscular h emoglobin (mass per erythrocyte) 27 pg 25-34 Automated erythrocyte mean corpuscular h emoglobin concentration measurement (mass/volume) 33 g/dL 32-36 Automated erythrocyte distribution width ratio 15. 7 % 10.0- 14.5 Automated blood platelet count (count/volume) 647 10*3/uL 130-400 Automated blood platelet mean volume measurement 10.7 [foz_us] 7.4-10.4 Automated blood neutrophils/100 leukocytes 77 % 42-75 Automated blood lymphocytes/100 leukocytes 8 % 12-44 Blood monocytes/100 leukocytes 10 % 0-12 Automated blood eosinophils/100 leukocytes 4 % 0-10 Automated blood basophils/100 leukocytes 1 % 0-10 Blood neutrophils automated count (number/volume) 8.3 10*3 1.8-7.8 Blood lymphocytes automated count (number/volume) 0.9 10*3 1.0-4.0 Blood monocytes automated count (number/volume) 1. 1 10*3 0.0-1.0 Automated eosinophil count 0.4 10*3/uL 0 .0-0.3 Automated blood basophil count (count/volume) 0.1 10*3/uL 0.0-0.1 Comprehensive metabolic panel - 03/30/20 05:43 Serum or plasma sodium measurement (moles/volume) 141 mmol/L 135-145 Serum or plasma potassium measurement (moles/volume) 3.2 mmol/L 3.6-5.0 Serum or plasma chloride measurement (moles/volume) 107 mmol/L 98-107 Carbon dioxide 23 mmol/L 21-32 Serum or plasma anion gap determination (moles/volume) 11 mmol/L 5-14 Serum or plasma urea nitrogen measurement (mass/volume ) 13 mg/dL 7-18 Serum or plasma creatinine measurement (mass/volume) 1.08 mg/dL 0.60-1.30 Serum or plasma urea nitrogen/creatinine mass ratio 12 NRG Serum or plasma creatinine measurement w ith calculation of estimated glomerular filtration rate > NRG Serum or plasma glucose measurement (mass/volume) 98 mg/dL 70-105 Serum or plasma calcium measurement (mass/volume) 9.0 mg/dL 8.5-10.1 Serum or plasma total bilirubin measurement (mass/volu me) 0.6 mg/dL 0.1-1.0 Serum or plasma alkaline phosphatase javon surement (enzymatic activity/volume) 91 U/L 40-136 Serum or plasma aspartate aminotransfera se measurement (enzymatic activity/volume) 20 U/L 5-34 Serum or plasma alanine aminotransferase measurement (enzymatic activity/volume) 26 U/L 0-55 Serum or plasma protein measurement (mass/volume) 6.0 g/dL 6.4-8.2 Serum or plasma albumin measurement (mass/volume) 3.5 g/dL 3.2-4.5 CALCIUM CORRECTED 9.4 mg/dL 8.5-10.1 Magnesium - 03/30/20 05:43 Magnesium 2.0 mg/dL 1.6-2.4 Blood lactic acid measurement (moles/vol ume) - 03/30/20 10:20 Blood lactic acid measurement (moles/volume) 2.22 mmol/L 0.50-2.00 PROCALCITONIN (PCT) - 03/30/20 10:20 PROCALCITONIN (PCT) 0.04 ng/mL <0.10 Bacterial blood culture - 03/30/20 10:20 Bacterial blood culture NG NRG Bacterial blood culture - 03/30/20 10:28 Bacterial blood culture NG NRG Complete urinalysis with reflex to cultu re - 03/30/20 11:15 Urine color determination YELLOW NRG Urine clarity determination CLOUDY NR G Urine pH measurement by test strip 6.0 5-9 Specific gravity of urine by test strip 1.025 1.016-1.022 Urine protein assay by test strip, semi-quantitative 1+ NEGATIVE Urine glucose detection by automated test strip NE GATIVE NEGATIVE Erythrocytes detection in urine sediment by light micr oscopy 3+ NEGATIVE Urine ketones detection by automated test strip NE GATIVE NEGATIVE Urine nitrite detection by test strip POSITIVE NEGATIVE Urine total bilirubin detection by test strip NEGA TIVE NEGATIVE Urine urobilinogen measurement by automated test strip (mass/volume) 0.2 mg/dL < = 1.0 Urine leukocyte esterase detection by dipstick 3+ NEGATIVE Automated urine sediment erythrocyte cou nt by microscopy (number/high power field) [HPF] NRG Automated urine sediment leukocyte count by microscopy (number/high power field) TNTC NRG Bacteria detection in urine sediment by light microsco py LARGE NRG Squamous epithelial cells detection in u rine sediment by light microscopy NONE NRG Crystals detection in urine sediment by light microsco py NONE NRG Casts detection in urine sediment by light microscopy NONE NRG Mucus detection in urine sediment by light microscopy NEGATIVE NRG Complete urinalysis with reflex to culture YES NRG Bacterial urine culture - 03/30/20 11:15 Bacterial urine culture [id number] NRG COLONY COUNT >100,000/ML NRG SUSCEPTIBILITY REFER TO PREVIOUS CULTURE FOR NRG MRSA SCREEN SUSCEPTIBILITY OF SAME ORGANISM. NRG Serum or plasma lactate measurement (mol es/volume) - 03/30/20 12:25 Serum or plasma lactate measurement (moles/volume) 2.12 mmol/L 0.50-2.00 Blood lactic acid measurement (moles/vol ume) - 03/30/20 15:10 Blood lactic acid measurement (moles/volume) 1.47 mmol/L 0.50-2.00 Complete blood count (CBC) with automate d white blood cell (WBC) differential - 03/31/20 05:40 Blood leukocytes automated count (number/volume) 11.5 10*3/uL 4.3-11.0 Blood erythrocytes automated count (number/volume) 3.35 10*6/uL 4.35-5.85 Venous blood hemoglobin measurement (mass/volume) 9.1 g/dL 13.3-17.7 Blood hematocrit (volume fraction) 28 % 40-54 Automated erythrocyte mean corpuscular volume 85 [ foz_us] 80-99 Automated erythrocyte mean corpuscular h emoglobin (mass per erythrocyte) 27 pg 25-34 Automated erythrocyte mean corpuscular h emoglobin concentration measurement (mass/volume) 32 g/dL 32-36 Automated erythrocyte distribution width ratio 15. 7 % 10.0- 14.5 Automated blood platelet count (count/volume) 515 10*3/uL 130-400 Automated blood platelet mean volume measurement 11.2 [foz_us] 7.4-10.4 Automated blood neutrophils/100 leukocytes 73 % 42-75 Automated blood lymphocytes/100 leukocytes 12 % 12-44 Blood monocytes/100 leukocytes 12 % 0-12 Automated blood eosinophils/100 leukocytes 3 % 0-10 Automated blood basophils/100 leukocytes 1 % 0-10 Blood neutrophils automated count (number/volume) 8.3 10*3 1.8-7.8 Blood lymphocytes automated count (number/volume) 1.3 10*3 1.0-4.0 Blood monocytes automated count (number/volume) 1. 4 10*3 0.0-1.0 Automated eosinophil count 0.3 10*3/uL 0 .0-0.3 Automated blood basophil count (count/volume) 0.1 10*3/uL 0.0-0.1 Comprehensive metabolic panel - 03/31/20 05:40 Serum or plasma sodium measurement (moles/volume) 137 mmol/L 135-145 Serum or plasma potassium measurement (moles/volume) 3.8 mmol/L 3.6-5.0 Serum or plasma chloride measurement (moles/volume) 107 mmol/L 98-107 Carbon dioxide 20 mmol/L 21-32 Serum or plasma anion gap determination (moles/volume) 10 mmol/L 5-14 Serum or plasma urea nitrogen measurement (mass/volume ) 15 mg/dL 7-18 Serum or plasma creatinine measurement (mass/volume) 1.23 mg/dL 0.60-1.30 Serum or plasma urea nitrogen/creatinine mass ratio 12 NRG Serum or plasma creatinine measurement w ith calculation of estimated glomerular filtration rate 60 NRG Serum or plasma glucose measurement (mass/volume) 89 mg/dL 70-105 Serum or plasma calcium measurement (mass/volume) 8.2 mg/dL 8.5-10.1 Serum or plasma total bilirubin measurement (mass/volu me) 0.6 mg/dL 0.1-1.0 Serum or plasma alkaline phosphatase javon surement (enzymatic activity/volume) 77 U/L 40-136 Serum or plasma aspartate aminotransfera se measurement (enzymatic activity/volume) 15 U/L 5-34 Serum or plasma alanine aminotransferase measurement (enzymatic activity/volume) 21 U/L 0-55 Serum or plasma protein measurement (mass/volume) 5.3 g/dL 6.4-8.2 Serum or plasma albumin measurement (mass/volume) 3.1 g/dL 3.2-4.5 CALCIUM CORRECTED 8.9 mg/dL 8.5-10.1 Complete blood count (CBC) with automate d white blood cell (WBC) differential - 04/01/20 03:38 Blood leukocytes automated count (number/volume) 9.2 10*3/uL 4.3-11.0 Blood erythrocytes automated count (number/volume) 3.73 10*6/uL 4.35-5.85 Venous blood hemoglobin measurement (mass/volume) 10.2 g/dL 13.3-17.7 Blood hematocrit (volume fraction) 31 % 40-54 Automated erythrocyte mean corpuscular volume 84 [ foz_us] 80-99 Automated erythrocyte mean corpuscular h emoglobin (mass per erythrocyte) 27 pg 25-34 Automated erythrocyte mean corpuscular h emoglobin concentration measurement (mass/volume) 33 g/dL 32-36 Automated erythrocyte distribution width ratio 16. 0 % 10.0- 14.5 Automated blood platelet count (count/volume) 525 10*3/uL 130-400 Automated blood platelet mean volume measurement 10.4 [foz_us] 7.4-10.4 Automated blood neutrophils/100 leukocytes 74 % 42-75 Automated blood lymphocytes/100 leukocytes 9 % 12-44 Blood monocytes/100 leukocytes 11 % 0-12 Automated blood eosinophils/100 leukocytes 5 % 0-10 Automated blood basophils/100 leukocytes 1 % 0-10 Blood neutrophils automated count (number/volume) 6.8 10*3 1.8-7.8 Blood lymphocytes automated count (number/volume) 0.8 10*3 1.0-4.0 Blood monocytes automated count (number/volume) 1. 0 10*3 0.0-1.0 Automated eosinophil count 0.4 10*3/uL 0 .0-0.3 Automated blood basophil count (count/volume) 0.1 10*3/uL 0.0-0.1 Comprehensive metabolic panel - 04/01/20 03:38 Serum or plasma sodium measurement (moles/volume) 139 mmol/L 135-145 Serum or plasma potassium measurement (moles/volume) 4.0 mmol/L 3.6-5.0 Serum or plasma chloride measurement (moles/volume) 110 mmol/L 98-107 Carbon dioxide 19 mmol/L 21-32 Serum or plasma anion gap determination (moles/volume) 10 mmol/L 5-14 Serum or plasma urea nitrogen measurement (mass/volume ) 10 mg/dL 7-18 Serum or plasma creatinine measurement (mass/volume) 1.10 mg/dL 0.60-1.30 Serum or plasma urea nitrogen/creatinine mass ratio 9 NRG Serum or plasma creatinine measurement w ith calculation of estimated glomerular filtration rate > NRG Serum or plasma glucose measurement (mass/volume) 114 mg/dL 70-105 Serum or plasma calcium measurement (mass/volume) 8.7 mg/dL 8.5-10.1 Serum or plasma total bilirubin measurement (mass/volu me) 0.4 mg/dL 0.1-1.0 Serum or plasma alkaline phosphatase javon surement (enzymatic activity/volume) 83 U/L 40-136 Serum or plasma aspartate aminotransfera se measurement (enzymatic activity/volume) 13 U/L 5-34 Serum or plasma alanine aminotransferase measurement (enzymatic activity/volume) 20 U/L 0-55 Serum or plasma protein measurement (mass/volume) 5.8 g/dL 6.4-8.2 Serum or plasma albumin measurement (mass/volume) 3.3 g/dL 3.2-4.5 CALCIUM CORRECTED 9.3 mg/dL 8.5-10.1 Magnesium - 04/01/20 03:38 Magnesium 2.1 mg/dL 1.6-2.4 Vancomycin trough - 04/01/20 11:27 Vancomycin trough 11.1 ug/mL 10.0-20.0 Whole blood basic metabolic panel - 03/20 01/07 03:00 Serum or plasma sodium measurement (moles/volume) 141 mmol/L 135-145 Serum or plasma potassium measurement (moles/volume) 4.3 mmol/L 3.6-5.0 Serum or plasma chloride measurement (moles/volume) 111 mmol/L 98-107 Carbon dioxide 20 mmol/L 21-32 Serum or plasma anion gap determination (moles/volume) 10 mmol/L 5-14 Serum or plasma urea nitrogen measurement (mass/volume ) 7 mg/dL 7-18 Serum or plasma creatinine measurement (mass/volume) 1.12 mg/dL 0.60-1.30 Serum or plasma urea nitrogen/creatinine mass ratio 6 NRG Serum or plasma creatinine measurement w ith calculation of estimated glomerular filtration rate > NRG Serum or plasma glucose measurement (mass/volume) 97 mg/dL 70-105 Serum or plasma calcium measurement (mass/volume) 9.1 mg/dL 8.5-10.1 Magnesium - 04/02/20 03:00 Magnesium 2.1 mg/dL 1.6-2.4 Serum or plasma phosphate measurement (m ass/volume) - 04/02/20 03:00 Serum or plasma phosphate measurement (mass/volume) 3.7 mg/dL 2.3-4.7 Whole blood basic metabolic panel - 03/20 02/06 05:22 Serum or plasma sodium measurement (moles/volume) 140 mmol/L 135-145 Serum or plasma potassium measurement (moles/volume) 4.0 mmol/L 3.6-5.0 Serum or plasma chloride measurement (moles/volume) 109 mmol/L 98-107 Carbon dioxide 21 mmol/L 21-32 Serum or plasma anion gap determination (moles/volume) 10 mmol/L 5-14 Serum or plasma urea nitrogen measurement (mass/volume ) 9 mg/dL 7-18 Serum or plasma creatinine measurement (mass/volume) 1.10 mg/dL 0.60-1.30 Serum or plasma urea nitrogen/creatinine mass ratio 8 NRG Serum or plasma creatinine measurement w ith calculation of estimated glomerular filtration rate > NRG Serum or plasma glucose measurement (mass/volume) 107 mg/dL 70-105 Serum or plasma calcium measurement (mass/volume) 9.5 mg/dL 8.5-10.1 Serum or plasma phosphate measurement (m ass/volume) - 04/03/20 05:22 Serum or plasma phosphate measurement (mass/volume) 3.5 mg/dL 2.3-4.7 Magnesium - 04/03/20 05:22 Magnesium 2.0 mg/dL 1.6-2.4 VIT B-12 - 04/06/20 13:26 Vitamin B12 468.00 pg/mL 213.00-816.00 Urinalysis - 04/06/20 13:26 Icotest N/A Negative Urine Volume Urine Volume Sufficient (10mL) Urine-Appearance Clear Clear Urine-Bacteria 1+ Urine-Bilirubin Negative Negative Urine-Blood Negative Negative Urine-Color Yellow Colorless-Lt. [place] ow Urine-Epithelial Cells 0-5/HPF Urine-Glucose Negative Negative Urine-Ketones Negative Negative Urine-Leukocytes 1+ Negative Urine-Nitrite Negative Negative Urine-Other Urine Saved if Culture Need ed (48hrs from time of collection) Urine-pH 7.5 5-8.5 Urine-Protein Negative Negative Urine-RBC 2-5/HPF Urine-Specific [place] 1.015 1.000-1 .030 Urine-WBC 2-5/HPF Urobilinogen 0.2 E.U./dL 0.2-1.0 Encounters ACCT No. Visit Date/Time Discharge Status Pt. Type Provider Facility Loc./Unit Complaint [id number] 01/08/2017 10:09:00 Document Registration [id number] 09/24/2017 09:08:55 09/24/2017 23:59:5 9 CLS Outpatient [id number] 03/30/2020 11:30:00 12:18:00 DIS Outpatient JUAN MANUEL EVANS DO [facility] 4TH GENERAL WEAKNESS,DEBILI TY [id number] 03/28/2020 23:31:00 00:43:00 DIS Outpatient ZAIRA DRAPER, TERESA Caal [facility] ER FS CHEST PAIN,NUMB LEGS [id number] 03/12/2020 09:49:00 14:10:00 DIS Inpatient SHAAN DRAPER, JUAN CARLOS Estevez [facility] ICU CHEST PAIN,UTI,N/V [id number] 02/20/2020 19:28:00 22:20:00 DIS Outpatient ZAIRA DRAPER, TERESA Caal [facility] ER FS CHEST PAIN [id number] 01/17/2020 17:23:00 20:05:00 DIS Outpatient KACY MARC MD [facility] ER FS CHEST PAIN [id number] 11/09/2019 14:00:00 15:54:00 DIS Outpatient LEEANNA DRAPER, FLACO Verma [facility] ER FS CHEST PAIN [id number] 05/29/2019 13:31:00 01:57:00 DIS Emergency NELLY POST DO [facility] ER FS CHEST PAIN [id number] 04/10/2019 20:06:00 21:58:00 DIS Emergency JOSE TAVERAS DO [facility] ER FS FEELS WEAK, CHEST PAIN, SOB [id number] 03/09/2019 16:33:00 18:40:00 DIS Emergency NELLY POST DO [facility] ER FS HIGH HEART RATE [id number] 03/01/2019 21:54:00 23:36:00 DIS Emergency MUNDO JUAREZ MD [facility] ER R ARM RASH [id number] 03/01/2019 11:23:00 12:17:00 DIS Outpatient ZAIRA DRAPER, TERESA Caal [facility] ER FS ABSCESS [id number] 01/06/2019 15:50:00 16:25:00 DIS Emergency NELLY POST DO [facility] ER FS POST OP WEAKNESS [id number] 10/12/2018 19:36:00 15:26:00 DIS Inpatient NIC LÓPEZ MD [facility] ICU AFIB W RVR AND CP [id number] 10/04/2018 10:11:00 23:59:59 CLS Outpatient EMILIE BANEGAS APRN [facility] LAB I10 [id number] 10/04/2018 10:08:00 019 23:59:59 CLS Outpatient JEOVANNY JAMES MD [facility] LAB SEE ORDER [id number] 09/05/2018 00:11:00 018 23:59:59 CLS Preadmit CARRINGTON GARAY NOTE TAKER [facility] CR3 CARDIAC REHAB P HASE III [id number] 08/05/2018 08:18:00 018 00:01:00 DIS Outpatient CARRINGTON GARAY NOTE TAKER [facility] CR3 CARDIAC REHAB P HASE III [id number] 08/23/2018 10:33:00 23:59:59 CLS Outpatient EMILIE BANEGAS APRN [facility] RAD ELEVATED TSH,THYROID T ENDERNESS [id number] 08/03/2018 07:26:00 018 00:01:00 DIS Outpatient CARRINGTON GARAYP [facility] CR3 CARDIAC REHAB P HASE III [id number] 06/24/2018 12:24:00 018 23:59:59 CLS Outpatient JEOVANNY JAMES MD [facility] LAB B18.2 [id number] 02/18/2018 08:28:00 018 23:59:59 CLS Outpatient EMILIE BANEGAS APRN [facility] RAD GROIN PAIN,HERNIA [id number] 11/12/2017 11:37:00 018 23:59:59 CLS Outpatient JEOVANNY JAMES MD [facility] LAB B18.2 [id number] 11/09/2017 11:00:00 018 23:59:59 CLS Preadmit EMILIE BANEGAS APRN [facility] RAD NECK PAIN,LOW BACK PAIN [id number] 10/07/2017 08:00:00 018 23:59:59 CLS Preadmit Kitty PATTERSON MD [facility] CARD R07.9 CHEST PAIN [id number] 09/25/2017 20:08:00 018 21:54:00 DIS Emergency MAHI PANIAGUA DO [facility] ER CP [id number] 09/24/2017 04:14:00 018 16:25:00 DIS [facility] ICU A-FIB [id number] 09/01/2017 21:13:00 017 23:09:00 DIS Emergency MIDDLETON MAHI MELCHOR [facility] ER LEG CRAMPS;CHEST PAIN;B LOOD CLOTS [id number] 08/21/2017 08:27:00 017 13:45:00 DIS [facility] 4TH PE,HYPOXIA [id number] 07/14/2017 09:27:00 017 13:45:00 DIS Outpatient IMMANUEL FRANCO MD [facility] ENDO ABD. PAIN/HX DIVERTICUL ITIS [id number] 07/12/2017 05:37:00 017 13:22:00 DIS Outpatient IMMANUEL FRANCO MD [facility] PREOP ABD. PAIN/HX DIVERTICUL ITIS [id number] 06/28/2017 20:15:00 017 21:29:00 DIS Emergency TERESA MENESES MD [facility] ER ABD PAIN/PASSING BLOOD IN STOOL [id number] 06/27/2017 19:26:00 017 22:19:00 DIS Emergency SAJAN CRUZ MD [facility] ER AB PAIN [id number] 05/13/2017 11:16:00 017 23:59:59 CLS Preadmit NAHOMI FLORES MD [facility] RAD MASS OF SINUS [id number] 02/16/2015 22:13:00 015 12:04:00 DIS Inpatient GILES CHRISTIANSON MD [facility] CSD TACHYCARDIA [id number] 11/25/2018 11:02:00 Document Registration [id number] 11/22/2017 10:40:00 Document Registration [id number] 02/18/2015 08:22:00 Document Registration [id number] 02/18/2015 08:21:00 Document Registration [id number] 02/18/2015 08:21:00 Document Registration [id number] 02/18/2015 08:21:00 Document Registration [id number] 09/20/2011 01:05:00 Document Registration [id number] 09/06/2011 00:55:00 Document Registration [id number] 04/10/2011 10:45:00 Document Registration [id number] 02/23/2011 16:44:00 Document Registration [id number] 02/21/2011 17:19:00 Document Registration [id number] 02/21/2011 08:45:00 Document Registration [id number] 02/14/2011 14:03:00 Document Registration [id number] 02/01/2011 20:31:00 Document Registration [id number] 10/29/2010 19:11:00 Document Registration [id number] 02/11/2010 06:03:00 Document Registration [id number] 05/24/2019 14:09:00 Document Registration [id number] 11/24/2018 04:35:00 019 09:20:00 DIS Emergency FREDERICK CASAREZ DO [facility] ER FS HEADACHE [id number] 04/04/2020 11:40:00 [id number] 02/14/2020 07:15:00 Document Registration [id number] 06/13/2019 10:15:00 Document Registration [id number] 02/20/2019 17:20:00 Document Registration [id number] 02/08/2019 14:00:00 Document Registration [id number] 05/24/2019 15:09:00 Document Registration [id number] 05/30/2019 10:10:00 Document Registration [id number] 12/21/2014 14:36:00 12/21/2014 23:59: 59 CLS Outpatient VIRGEN DOSHERRON [id number] 11/05/2014 10:03:00 11/05/2014 23:59: 59 CLS Outpatient VIRGEN DOSHERRON [id number] 11/05/2014 09:04:00 11/05/2014 23:59: 59 CLS Outpatient BEVERLEY DIAZ, OLIVIA Tang [id number] 09/27/2014 12:57:00 09/27/2014 23:59: 59 CLS Outpatient VIRGEN DOSHERRON [id number] 08/22/2014 08:19:00 08/22/2014 23:59: 59 CLS Outpatient OLIVIA AUGUSTINE [id number] 08/20/2014 11:14:00 08/20/2014 23:59: 59 CLS Outpatient VIRGEN DOSHERRON [id number] 08/20/2014 10:45:00 08/20/2014 23:59: 59 CLS Outpatient VIRGEN DO, SHERRON Landa [id number] 07/23/2014 12:53:00 07/23/2014 23:59: 59 CLS Outpatient VIRGEN DOSHERRON [id number] 07/23/2014 12:53:00 07/23/2014 23:59: 59 CLS Outpatient VIRGEN DO, SHERRON Landa [id number] 06/21/2014 11:51:00 06/21/2014 23:59: 59 CLS Outpatient VIRGEN DO, SHERRON Landa [id number] 06/20/2014 09:06:00 06/20/2014 23:59: 59 CLS Outpatient VIRGEN DOSHERRON [id number] 06/05/2014 11:28:00 06/05/2014 23:59: 59 CLS Outpatient VIRGEN DOSHERRON Syeda [id number] 05/08/2014 13:37:00 05/08/2014 23:59: 59 CLS Outpatient VIRGEN DO, SHERRON Syeda [id number] 04/11/2014 12:20:00 04/11/2014 23:59: 59 CLS Outpatient VIRGEN DO, SHERRON Syeda [id number] 03/12/2014 09:18:00 03/12/2014 23:59: 59 CLS Outpatient VIRGEN DO, SHERRON Syeda [id number] 02/19/2014 08:24:00 02/19/2014 23:59: 59 CLS Outpatient MADL CREMATORRYAN L [id number] 02/13/2014 08:48:00 02/13/2014 23:59: 59 CLS Outpatient SHERRON VIRGEN DO [id number] 12/12/2013 16:22:00 12/12/2013 23:59: 59 CLS Outpatient BRENNEN MICHELE APRN [id number] 10/04/2013 09:47:00 10/04/2013 23:59: 59 CLS Outpatient RYNE CREMATORBRENNEN De La Cruz [id number] 01/23/2013 11:08:00 01/23/2013 23:59: 59 CLS Outpatient MICHELE CREMATORBRENNEN De La Cruz [id number] 09/06/2012 10:35:00 09/06/2012 23:59: 59 CLS Outpatient RYNE CREMATORBRENNEN De La Cruz [id number] 04/08/2012 09:14:00 04/08/2012 23:59:5 9 CLS Outpatient [id number] 01/10/2013 11:04:00 Document Registration [id number] 02/01/2020 20:08:00 02/01/2020 23:48 :00 DIS Outpatient Jason [facility] ER [id number] 10/10/2019 18:31:00 10/10/2019 20:07 :00 DIS Outpatient Yanira [facility] ER [id number] 05/29/2019 12:35:00 05/29/2019 12:35: 00 DIS Outpatient Yanira [place] [id number] 05/27/2019 17:58:00 05/27/2019 20:50: 00 [id number] 05/19/2019 03:52:00 05/19/2019 06:15: 00 DIS Outpatient RIVAS HERZOG [facility] ER [id number] 03/20/2019 17:55:00 03/20/2019 20:08: 00 DIS Outpatient Yanira [facility] ER [id number] 02/03/2019 17:01:00 02/03/2019 19:16: 00 DIS Outpatient Yanira [facility] ER [id number] 08/05/2018 14:25:00 08/06/2018 08:30: 00 DIS Outpatient Eduardo Champagne [facility] ER [id number] 06/28/2017 21:46:00 06/29/2017 02:10: 00 DIS Outpatient ROSITA WATKINS [id number] 04/06/2020 13:10:00 Document Registration [id number] 06/28/2017 23:55:46 Document Registration
[2020-04-06] MEDS ORDERED: NS IV 1000 ML 1,000 ML IV SCH (19:15)
[2020-04-06 19:17] VITALS: BP_SYST 108; BP_SYST 79; BP_SYST 81; BP_DIAS 59; BP_DIAS 60; BP_DIAS 62
[2020-04-06 19:19] LABS: BUN/CREATININE RATIO 8; CARBON DIOXIDE 23 MMOL/L (21-32); CHLORIDE 105 MMOL/L (98-107); CREATININE SERUM 1.34 MG/DL (0.60-1.30); GFR ESTIMATED 54; GLUCOSE 105 MG/DL (70-105); POTASSIUM 3.9 MMOL/L (3.6-5.0); SODIUM 142 MMOL/L (135-145)
[2020-04-06 19:20] LABS: ALANINE AMINOTRANSFERASE 19 U/L (0-55); ALBUMIN 3.9 GM/DL (3.2-4.5); ALKALINE PHOSPHATASE 105 U/L (40-136); BILIRUBIN,TOTAL 0.3 MG/DL (0.1-1.0); MAGNESIUM 1.7 MG/DL (1.6-2.4); TOTAL PROTEIN 6.6 GM/DL (6.4-8.2)
--- NOTE | 2020-04-06 19:27 | Diagnostic Imaging Report ---
INDICATION: Chest pain. EXAMINATION: Chest, one view, 6:58 p.m. FINDINGS: The heart size is within normal limits and the heart does seem less prominent than noted on the prior exam of 04/02/2020. There may be a very small amount of atelectasis/infiltrate in each lung base. The lungs are otherwise clear. There is no evidence for failure or a pleural effusion. The mediastinum is not widened. The osseous structures are intact. IMPRESSION: There is mild bibasilar atelectasis/infiltrate. There is no acute abnormality noted otherwise. Dictated by: Dictated on workstation # [id number]
--- NOTE | 2020-04-06 19:39 | ED General ---
General Chief Complaint: Dizziness/Syncope Stated Complaint: NAUSEA Source of Information: Patient History of Present Illness Date Seen by Provider: Apr 06, 2020 Time Seen by Provider: 18:50 Initial Comments Patient is a 59-year-old male with history of A. fib, ablation, congestive heart failure and CAD was discharged from [facility] earlier this week for treatment of congestive heart failure presents with dizziness with syncopal episode while standing, generalized malaise and nausea. Patient states he felt weak and dizzy since discharge from [facility]. Dizziness is worse with standing and activity. He is compliant with all his medications and is currently on amiodarone and Eliquis. He denies exertional chest pain and exertional shortness of breath. No fever chills, vomiting. No increased leg pain or swelling. No other acute symptoms or complaints. On EMS arrival, patient was tachycardic with heart rate in the 110s systolic blood pressure in the 90s. Timing/Duration: 4-5 Days Severity: Moderate Modifying Factors: improves with Movement Associated Systoms: Malaise, Nausea/Vomiting, Syncope, Weakness Allergies and Home Medications Allergies Uncoded Allergies: IV contrast (Allergy, Unknown, 03/11/20) Home Medications Alprazolam 1 Mg Tablet, 0.5 MG PO DAILY PRN for ANXIETY, (Reported) Alprazolam 1 Mg Tablet, 1 MG PO HS PRN for ANXIETY, (Reported) Amiodarone HCl 200 Mg Tablet, 200 MG PO BID Prescribed by: JUAN MANUEL EVANS on 04/03/20956 Apixaban 5 Mg Tablet, 5 MG PO BID, (Reported) Atorvastatin Calcium 40 Mg Tablet, 40 MG PO DAILY, (Reported) Levothyroxine Sodium 50 Mcg Tablet, 50 MCG PO DAILY, (Reported) Lisinopril 10 Mg Tablet, 10 MG PO DAILY, (Reported) Oxycodone HCl 10 Mg Tablet, 10 MG PO Q6H PRN for PAIN-SEVERE (8-10), (Reported) Potassium Chloride 10 Meq Tablet.er, 10 MEQ PO DAILY@0700 Prescribed by: JUAN MANUEL EVANS on 04/03/20956 Patient Home Medication List Home Medication List Reviewed: Yes Review of Systems Review of Systems Constitutional: see HPI EENTM: see HPI Respiratory: see HPI Cardiovascular: see HPI Psychiatric/Neurological: See HPI All Other Systems Reviewed Negative Unless Noted: Yes Past Cydqemd-Umzvmi-Zijknx Hx Past Med/Social Hx: Reviewed Nursing Past Med/Soc Hx Patient Social History Alcohol Use: Occasionally Uses Recreational Drug Use: No (DENIES TOBACCO USE, DENIES ILLICIT) Type Used: Cigarettes Former Smoker, Quit: Jul 12, 1985 2nd Hand Smoke Exposure: No Recent Hopitalizations: Yes ([facility]) Physical Abuse: No Sexual Abuse: No Mistreated: No Fear: No Immunizations Up To Date Tetanus Booster (TDap): Unknown Date of Pneumonia Vaccine: Jul 21, 2018 Date of Influenza Vaccine: Jul 21, 2018 Seasonal Allergies Seasonal Allergies: No Past Medical History Surgeries: Yes (Cardiac Ablation ) Appendectomy Respiratory: Yes Pulmonary Embolism Cardiac: Yes Atrial Fibrillation, High Cholesterol, Hypertension, Irregular Heartbeat Neurological: Yes Headaches /Migraines Reproductive Disorders: No Sexually Transmitted Disease: Yes (Hep C: treated) HIV/AIDS: No Genitourinary: No Prostate Problems Gastrointestinal: Yes (COLON CA WITH SURGICAL INTERVENTION) Diverticulosis, Hemorrhoids Musculoskeletal: Yes Arthritis, Chronic Back Pain Endocrine: Yes Hypothyroidsim HEENT: No Loss of Vision: Denies Hearing Impairment: Denies Cancer: Yes Colon Did You Recieve Any Treatments: Yes What Type of Treatment Did You: Surgical Intervention Psychosocial: Yes Anxiety, Depression Integumentary: No Blood Disorders: No Adverse Reaction/Blood Tranf: No Family Medical History Heart Disease, Hypertension Physical Exam Vital Signs Vital Signs - First Documented 04/06/20 18:30 Temp 37.6 Pulse 108 Resp 18 B/P (MAP) 115/65 (82) Pulse Ox 100 O2 Delivery Room Air Capillary Refill : Height, Weight, BMI Height: 6'0" Weight: 224lbs. 0oz. 101.498923zx; 26.51 BMI Method:Stated General Appearance: No Apparent Distress, Anxious Eyes: Bilateral Eye Normal Inspection, Bilateral Eye PERRL HEENT: PERRL/EOMI, Normal ENT Inspection Neck: Full Range of Motion, Normal Inspection Respiratory: Lungs Clear Cardiovascular: Regular Rate, Rhythm Gastrointestinal: Soft Back: Normal Inspection Extremity: Normal Capillary Refill Neurologic/Psychiatric: Alert, Oriented x3, No Motor/Sensory Deficits, leadite heater II- XII Norm as Tested Skin: Normal Color Focused Exam Sepsis Stage: Ruled Out Lactate Level 04/06/20 18:45: Lactic Acid Level 2.48*H 04/06/20 20:45: Lactic Acid Level 0.90 Lactic Acid Level Laboratory Tests Test 04/06/20 18:45 04/06/20 20:45 Lactic Acid Level 2.48 MMOL/L (0.50-2.00) *H 0.90 MMOL/L (0.50-2.00) Procedures/Interventions Date of ETT Placement: Mar 13, 2020 Time of ETT Placement: 0730 Progress/Results/Core Measures Suspected Sepsis SIRS Temperature: Pulse: 106 Respiratory Rate: Laboratory Tests 04/06/20 18:45: White Blood Count 7.3 Blood Pressure 79 /62 Mean: 68 04/06/20 18:45: Lactic Acid Level 2.48*H 04/06/20 20:45: Lactic Acid Level 0.90 Laboratory Tests 04/06/20 18:45: Creatinine 1.34H, Platelet Count 617H, Total Bilirubin 0.3 Results/Orders Lab Results Laboratory Tests Test 04/06/20 18:45 04/06/20 20:45 Range/Units White Blood Count 7.3 4.3-11.0 10^3/uL Red Blood Count 4.24 L 4.35-5.85 10^6/uL Hemoglobin 11.6 L 13.3-17.7 G/DL Hematocrit 35 L 40-54 % Mean Corpuscular Volume 82 80-99 FL Mean Corpuscular Hemoglobin 27 25-34 PG Mean Corpuscular Hemoglobin Concent 33 32-36 G/DL Red Cell Distribution Width 15.3 H 10.0-14.5 % Platelet Count 617 H 130-400 10^3/uL Mean Platelet Volume 9.9 7.4-10.4 FL Neutrophils (%) (Auto) 65 42-75 % Lymphocytes (%) (Auto) 20 12-44 % Monocytes (%) (Auto) 12 0-12 % Eosinophils (%) (Auto) 2 0-10 % Basophils (%) (Auto) 1 0-10 % Neutrophils # (Auto) 4.7 1.8-7.8 X 10^3 Lymphocytes # (Auto) 1.5 1.0-4.0 X 10^3 Monocytes # (Auto) 0.9 0.0-1.0 X 10^3 Eosinophils # (Auto) 0.2 0.0-0.3 10^3/uL Basophils # (Auto) 0.1 0.0-0.1 10^3/uL Sodium Level 142 135-145 MMOL/L Potassium Level 3.9 3.6-5.0 MMOL/L Chloride Level 105 98-107 MMOL/L Carbon Dioxide Level 23 21-32 MMOL/L Anion Gap 14 5-14 MMOL/L Blood Urea Nitrogen 11 7-18 MG/DL Creatinine 1.34 H 0.60-1.30 MG/DL Estimat Glomerular Filtration Rate 54 BUN/Creatinine Ratio 8 Glucose Level 105 70-105 MG/DL Lactic Acid Level 2.48 *H 0.90 0.50-2.00 MMOL/L Calcium Level 10.0 8.5-10.1 MG/DL Corrected Calcium 10.1 8.5-10.1 MG/DL Magnesium Level 1.7 1.6-2.4 MG/DL Total Bilirubin 0.3 0.1-1.0 MG/DL Aspartate Amino Transf (AST/SGOT) 16 5-34 U/L Alanine Aminotransferase (ALT/SGPT) 19 0-55 U/L Alkaline Phosphatase 105 40-136 U/L Troponin I < 0.30 <0.30 NG/ML Pro-B-Type Natriuretic Peptide 1645.0 H <75.0 PG/ML Total Protein 6.6 6.4-8.2 GM/DL Albumin 3.9 3.2-4.5 GM/DL My Orders Orders - NELLY POST DO Cbc With Automated Diff (04/06/20 18:51) Comprehensive Metabolic Panel (04/06/20 18:51) Ekg Tracing (04/06/20 18:51) Troponin I Fs (04/06/20 18:51) Probnp Fs (04/06/20 18:51) Magnesium (04/06/20 18:51) Chest 1 View Ap/Pa Only (04/06/20 18:51) Lactic Acid Analyzer (04/06/20 18:51) Blood Culture (04/06/20 18:51) Ns Iv 1000 Ml (Sodium Chloride 0.9%) (04/06/20 19:15) Orthostatic Vital Signs (Adult (04/06/20 19:12) Blood Culture (04/06/20 19:35) Acetaminophen Tablet (Tylenol Tablet) (04/06/20 20:45) Ct Head W Wo (04/06/20 20:54) Oxycodone/Acet 10/325mg Tablet (Percocet (04/06/20 21:15) Ct Head Wo (04/06/20 21:30) Oxycodone/Apap 5/325mg Tablet (Percocet (04/06/20 21:48) Oxycodone/Apap 5/325mg Tablet (Percocet (04/06/20 22:15) Medications Given in ED Current Medications Medications Dose Ordered Sig/Janet Route Start Time Stop Time Status Last Admin Dose Admin Oxycodone/ Acetaminophen 2 tab ONCE ONCE PO 04/06/20 22:15 04/06/20 22:16 DC 04/06/20 22:08 2 TAB Vital Signs/I&O 04/06/20 04/06/20 18:30 19:17 Temp 37.6 Pulse 108 90 97 106 Resp 18 B/P (MAP) 115/65 (82) 108/60 (76) 81/59 (66) 79/62 (68) Pulse Ox 100 O2 Delivery Room Air Capillary Refill : Blood Pressure Mean: 68 Departure Communication (Admissions) Patient tachycardic hypotensive with syncope on orthostatic testing. Blood pressure improved with fluids. Lab work, imaging reviewed. CT head negative. Patient accepted to [facility] Impression Primary Impression: Syncope Additional Impression: CHF exacerbation Disposition: XF SHT-TRM HOSP Condition: Stable Departure-Patient Inst. Referrals: [facility]/ (PCP) Primary Care Physician NIKKI WILEY APRN (Family) Primary Care Physician Patient Instructions: Orthostatic Hypotension (DC), Syncope (Fainting) (DC) Add. Discharge Instructions: All discharge instructions reviewed with patient and/or family. Voiced underst anding. NELLY POST DO Apr 06, 2020 19:39
[2020-04-06] MEDS ORDERED: ACETAMINOPHEN 500 MG TAB (TYLENOL) PO ONE (20:45)
[2020-04-06] MEDS ORDERED: oxyCODONE/APAP 10/325MG (PERCOCET 10) TABLET PO ONE (21:15)
[2020-04-06] MEDS ORDERED: oxyCODONE/APAP 5/325MG (PERCOCET 5) TABLET ONE (21:48)
[2020-04-06] MEDS ORDERED: oxyCODONE/APAP 5/325MG (PERCOCET 5) TABLET PO ONE (22:15)
[2020-04-06 22:48] VITALS: BP 111/71
--- NOTE | 2020-04-07 07:51 | Diagnostic Imaging Report ---
PROCEDURE: CT head without contrast. TECHNIQUE: Multiple contiguous axial images were obtained through the brain without the use of intravenous contrast. Auto Exposure Controls were utilized during the CT exam to meet ALARA standards for radiation dose reduction. DATE: April 06, 2020. COMPARISON: MRI brain February 03, 2010. INDICATION: 59-year-old male, dizziness. Weakness. FINDINGS: There is an air-fluid level in the left sphenoid sinus. 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 There is a groundglass attenuation lesion of the right side of the sphenoid on axial image 7 measuring approximately 3.3 x 1.9 x 1.5 cm in size. The mastoid air cells and middle ears are well-aerated. The ventricles and cerebral spinal fluid spaces are of normal size and configuration for the patient's age. There is no mass effect or midline shift. There is no acute intracranial hemorrhage. There is no abnormal extra-axial fluid collection. IMPRESSION: 1. No identified acute intracranial abnormality. 2. 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 3. Air-fluid level in the left sphenoid sinus. Recommend correlation clinically for possibility of acute sinusitis. Dictated by: Dictated on workstation # [id number]
== END 2020-04-06 23:28 | disposition short-term general hospital (02) ==
LOC: EDUNIT# 18:27 → ER FS 18:28
DX: R55 Syncope and collapse (principal); I50.9 Heart failure, unspecified; I10 Essential (primary) hypertension; E78.00 Pure hypercholesterolemia, unspecified; I48.91 Unspecified atrial fibrillation; G89.29 Other chronic pain; M54.9 Dorsalgia, unspecified; E03.9 Hypothyroidism, unspecified; F41.9 Anxiety disorder, unspecified; Z91.041 Radiographic dye allergy status; Z85.038 Personal history of other malignant neoplasm of large intestine; Z82.49 Family history of ischemic heart disease and other diseases of the circulatory system; Z79.01 Long term (current) use of anticoagulants; Z79.891 Long term (current) use of opiate analgesic
CPT/HCPCS: 36415; 70450; 71045; 80053; 83605; 83735; 83880; 84484; 85025; 87040; 93005

== ENCOUNTER 2020-04-26 22:39 | Inpatient (IN) | payer MEDICAID ==
[~2020-04-26] VITALS: Ht 152.4 cm; Wt 91.3 kg
[2020-04-26] MEDS ORDERED: ASPIRIN 81 MG CHEW (CHILDREN'S ASA) PO ONE (23:00)
[2020-04-26 23:11] VITALS: BP_SYST 113; BP_SYST 120; BP_SYST 126; BP_DIAS 84; BP_DIAS 85; BP_DIAS 90
[2020-04-26 23:17] LABS: BASOPHILS # (AUTO) 0.1 10^3/uL (0.0-0.1); BASOPHILS % (AUTO) 1 % (0-10); EOSINOPHILS # (AUTO) 0.4 10^3/uL (0.0-0.3); EOSINOPHILS % (AUTO) 3 % (0-10); HEMATOCRIT 36 % (40-54); HEMOGLOBIN 11.9 G/DL (13.3-17.7); LYMPHOCYTES # (AUTO) 1.8 X 10^3 (1.0-4.0); LYMPHOCYTES % (AUTO) 16 % (12-44); MEAN CORPUSCULAR HEMOGLOBIN 27 PG (25-34); MEAN CORPUSCULAR HGB CONC 33 G/DL (32-36); MEAN CORPUSCULAR VOLUME 80 FL (80-99); MONOCYTES # (AUTO) 1.1 X 10^3 (0.0-1.0); MONOCYTES % (AUTO) 10 % (0-12); NEUTROPHILS # (AUTO) 7.7 X 10^3 (1.8-7.8); NEUTROPHILS % (AUTO) 70 % (42-75); PLATELET COUNT 583 10^3/uL (130-400); RED CELL DISTRIBUTION WIDTH 15.3 % (10.0-14.5)
[2020-04-26 23:30] LABS: INR 1.2 (0.8-1.4); PROTHROMBIN TIME PATIENT 15.6 SEC (12.2-14.7)
[2020-04-26] MEDS ORDERED: LACTATED RINGERS 1,000 ML IV ONE (23:41)
[2020-04-26 23:45] LABS: ALANINE AMINOTRANSFERASE 13 U/L (0-55); ALBUMIN 3.8 GM/DL (3.2-4.5); ALKALINE PHOSPHATASE 112 U/L (40-136); BILIRUBIN,TOTAL 0.3 MG/DL (0.1-1.0); BUN/CREATININE RATIO 15; CALCIUM 9.5 MG/DL (8.5-10.1); CARBON DIOXIDE 21 MMOL/L (21-32); CHLORIDE 109 MMOL/L (98-107); CREATININE SERUM 1.04 MG/DL (0.60-1.30); GFR ESTIMATED > 60; GLUCOSE 96 MG/DL (70-105); MAGNESIUM 1.9 MG/DL (1.6-2.4); POTASSIUM 3.5 MMOL/L (3.6-5.0); SODIUM 140 MMOL/L (135-145); TOTAL PROTEIN 6.5 GM/DL (6.4-8.2)
[2020-04-27] VITALS (7 sets, daily range): BP systolic 112–147; BP diastolic 66–96
--- NOTE | 2020-04-27 00:07 | ED Cardiac General ---
History of Present Illness General Chief Complaint: Chest Pain Stated Complaint: CHEST PAIN Nursing Triage Note: c/o left sided chest pain, near syncope x3 hrs. Source: patient Exam Limitations: no limitations History of Present Illness Date Seen by Provider: Apr 26, 2020 Time Seen by Provider: 23:25 Initial Comments Here with report of intermittent left-sided chest pain that he describes as a pressure that has been going on for the last 3 hours. Also feels weak and has almost passed out. Patient states that every time he stands up he gets weak. He was just released from [facility] yesterday but admits that they wanted to keep him but he left AMA. He was supposed to go to rehabilitation. Does have long-standing history of atrial fibrillation that is sometimes uncontrolled and significant disease related to that including long-term hospitalization. Today he states that whenever he stands up he gets weak and he is afraid to go to sleep because he is afraid his blood pressures dropping too low. Denies nausea, vomiting, breathing problems, weakness or fever. States that he does feel hot and cold at times. This is been going on for a few weeks as well. Timing/Duration: 4-6 hours, constant Severity: mild, moderate Location: central Activities at Onset: none Prior CP/Workup: cardiac cath, echocardiography Modifying Factors: worse with exercise; improves with lying down, improves with rest NTG SL DIRECTOR OF SOLUTIONS ARCHITECTURE: No ASA po DIRECTOR OF SOLUTIONS ARCHITECTURE: No Associated Systoms: Chest Pain; No Cough, No Nausea/Vomiting, No Shortness of Air; Weakness Allergies and Home Medications Allergies Uncoded Allergies: IV contrast (Allergy, Unknown, 03/11/20) Home Medications Alprazolam 1 Mg Tablet, 0.5 MG PO DAILY PRN for ANXIETY, (Reported) Alprazolam 1 Mg Tablet, 1 MG PO HS PRN for ANXIETY, (Reported) Amiodarone HCl 200 Mg Tablet, 200 MG PO BID Prescribed by: JUAN MANUEL EVANS on 04/03/20 0957 Apixaban 5 Mg Tablet, 5 MG PO BID, (Reported) Atorvastatin Calcium 40 Mg Tablet, 40 MG PO DAILY, (Reported) Levothyroxine Sodium 50 Mcg Tablet, 50 MCG PO DAILY, (Reported) Lisinopril 10 Mg Tablet, 10 MG PO DAILY, (Reported) Oxycodone HCl 10 Mg Tablet, 10 MG PO Q6H PRN for PAIN-SEVERE (8-10), (Reported) Potassium Chloride 10 Meq Tablet.er, 10 MEQ PO DAILY@0700 Prescribed by: JUAN MANUEL EVANS on 04/03/20 0926 Patient Home Medication List Home Medication List Reviewed: Yes Review of Systems Review of Systems Constitutional: see HPI, chills; No fever; weakness EENTM: No Nose Congestion, No Throat Pain Respiratory: Denies Cough, Denies Shortness of Air Cardiovascular: Chest Pain; Denies Edema; Lightheadedness, Syncope Gastrointestinal: Denies Abdominal Pain, Denies Nausea, Denies Vomiting Genitourinary: No Symptoms Reported Musculoskeletal: No back pain; muscle weakness Skin: no symptoms reported Psychiatric/Neurological: Depressed; Denies Headache; Weakness Endocrine: No Symptoms Reported All Other Systems Reviewed Negative Unless Noted: Yes Past Nslipby-Qjllcg-Zfaggt Hx Past Med/Social Hx: Reviewed Nursing Past Med/Soc Hx Patient Social History Alcohol Use: Denies Use Recreational Drug Use: No Smoking Status: Former Smoker Type Used: Cigarettes Former Smoker, Quit: Jul 12, 1985 2nd Hand Smoke Exposure: No Recent Foreign Travel: No Contact w/Someone Who Travel: No Recent Infectious Disease Expo: No Recent Hopitalizations: No Physical Abuse: No Sexual Abuse: No Mistreated: No Fear: No Immunizations Up To Date Tetanus Booster (TDap): Unknown Date of Pneumonia Vaccine: Jul 21, 2018 Date of Influenza Vaccine: Jul 21, 2018 Seasonal Allergies Seasonal Allergies: No Past Medical History Surgeries: Yes (Cardiac Ablation, spleenectomy) Appendectomy, Bowel Surgery Respiratory: Yes Pulmonary Embolism Cardiac: Yes Atrial Fibrillation, High Cholesterol, Hypertension, Irregular Heartbeat Neurological: Yes Headaches /Migraines Reproductive Disorders: No Sexually Transmitted Disease: Yes (Hep C: treated) HIV/AIDS: No Genitourinary: No Prostate Problems Gastrointestinal: Yes (COLON CA WITH SURGICAL INTERVENTION) Diverticulosis, Hemorrhoids Musculoskeletal: Yes Arthritis, Chronic Back Pain Endocrine: Yes Hypothyroidsim HEENT: No Loss of Vision: Denies Hearing Impairment: Denies Cancer: Yes Colon Did You Recieve Any Treatments: Yes What Type of Treatment Did You: Surgical Intervention Psychosocial: Yes Anxiety, Depression Integumentary: No Blood Disorders: No Adverse Reaction/Blood Tranf: No Family Medical History Reviewed Nursing Family Hx Heart Disease, Hypertension Physical Exam Vital Signs Vital Signs - First Documented 04/26/20 22:53 Temp 36.9 Pulse 87 Resp 16 B/P (MAP) 131/89 (103) Capillary Refill : Less Than 3 Seconds Height, Weight, BMI Height: 6'0" Weight: 224lbs. 0oz. [id number]; 26.00 BMI Method:Stated General Appearance: No Apparent Distress, WD/WN HEENT: PERRL/EOMI, Pharynx Normal Neck: Non Tender, Supple Respiratory: Lungs Clear, Normal Breath Sounds Cardiovascular: Regular Rate, Rhythm, No Murmur Gastrointestinal: Non Tender, Soft Extremity: Normal Range of Motion, Non Tender Neurologic/Psychiatric: Alert, Oriented x3 Skin: Normal Color, Warm/Dry Procedures/Interventions Date of ETT Placement: Mar 13, 2020 Time of ETT Placement: 07 Progress/Results/Core Measures Results/Orders Lab Results Laboratory Tests Test 04/26/20 23:00 Range/Units White Blood Count 11.0 4.3-11.0 10^3/uL Red Blood Count 4.47 4.35-5.85 10^6/uL Hemoglobin 11.9 L 13.3-17.7 G/DL Hematocrit 36 L 40-54 % Mean Corpuscular Volume 80 80-99 FL Mean Corpuscular Hemoglobin 27 25-34 PG Mean Corpuscular Hemoglobin Concent 33 32-36 G/DL Red Cell Distribution Width 15.3 H 10.0-14.5 % Platelet Count 583 H 130-400 10^3/uL Mean Platelet Volume 10.0 7.4-10.4 FL Neutrophils (%) (Auto) 70 42-75 % Lymphocytes (%) (Auto) 16 12-44 % Monocytes (%) (Auto) 10 0-12 % Eosinophils (%) (Auto) 3 0-10 % Basophils (%) (Auto) 1 0-10 % Neutrophils # (Auto) 7.7 1.8-7.8 X 10^3 Lymphocytes # (Auto) 1.8 1.0-4.0 X 10^3 Monocytes # (Auto) 1.1 H 0.0-1.0 X 10^3 Eosinophils # (Auto) 0.4 H 0.0-0.3 10^3/uL Basophils # (Auto) 0.1 0.0-0.1 10^3/uL Erythrocyte Sedimentation Rate 30 0-30 MM/HR Prothrombin Time 15.6 H 12.2-14.7 SEC INR Comment 1.2 0.8-1.4 Activated Partial Thromboplast Time 31 24-35 SEC D-Dimer 0.51 H 0.00-0.49 UG/ML Sodium Level 140 135-145 MMOL/L Potassium Level 3.5 L 3.6-5.0 MMOL/L Chloride Level 109 H 98-107 MMOL/L Carbon Dioxide Level 21 21-32 MMOL/L Anion Gap 10 5-14 MMOL/L Blood Urea Nitrogen 16 7-18 MG/DL Creatinine 1.04 0.60-1.30 MG/DL Estimat Glomerular Filtration Rate > 60 BUN/Creatinine Ratio 15 Glucose Level 96 70-105 MG/DL Calcium Level 9.5 8.5-10.1 MG/DL Corrected Calcium 9.7 8.5-10.1 MG/DL Magnesium Level 1.9 1.6-2.4 MG/DL Total Bilirubin 0.3 0.1-1.0 MG/DL Aspartate Amino Transf (AST/SGOT) 14 5-34 U/L Alanine Aminotransferase (ALT/SGPT) 13 0-55 U/L Alkaline Phosphatase 112 40-136 U/L Lactate Dehydrogenase 155 125-220 U/L Myoglobin 36.8 10.0-92.0 NG/ML Troponin I 0.109 H <0.028 NG/ML C-Reactive Protein High Sensitivity 1.27 H 0.00-0.50 MG/DL Total Protein 6.5 6.4-8.2 GM/DL Albumin 3.8 3.2-4.5 GM/DL Procalcitonin 0.03 <0.10 NG/ML My Orders Orders - SAJAN CRUZ MD Cbc With Automated Diff (04/26/20 22:47) Magnesium (04/26/20 22:47) Chest 1 View, Ap/Pa Only (04/26/20 22:47) Ekg Tracing (04/26/20 22:47) Comprehensive Metabolic Panel (04/26/20 22:47) Myoglobin Serum (04/26/20 22:47) Protime With Inr (04/26/20 22:47) Partial Thromboplastin Time (04/26/20 22:47) O2 (04/26/20 22:47) Monitor-Rhythm Ecg Trace Only (04/26/20 22:47) Lipid Panel (04/27/20 06:00) Ed Iv/Invasive Line Start (04/26/20 22:47) Troponin I (04/26/20 22:47) Aspirin Chewable Tablet (Baby Aspirin Ch (04/26/20 23:00) Fibrin Degradation Products (04/26/20 22:47) Procalcitonin (Pct) (04/26/20 22:47) Hs C Reactive Protein (04/26/20 22:47) Erythrocyte Sedimentation Rate (04/26/20 22:47) LDH (04/26/20 22:47) Lactated Ringers (Lr 1000 Ml Iv Solution (04/26/20 23:41) Medications Given in ED Current Medications Medications Dose Ordered Sig/Janet Route Start Time Stop Time Status Last Admin Dose Admin Aspirin 324 mg ONCE ONCE PO 04/26/20 23:00 04/26/20 23:01 DC 04/26/20 22:55 324 MG Lactated Ringer's 1,000 ml @ ud STK-MED ONCE IV 04/26/20 23:41 04/26/20 23:45 DC 04/26/20 23:46 999 MLS/HR Vital Signs/I&O 04/26/20 04/26/20 04/26/20 04/26/20 22:53 22:53 22:53 23:11 Temp 36.9 Pulse 87 85 89 97 Resp 16 B/P (MAP) 131/89 (103) 120/85 (97) 126/90 (102) 113/84 (94) Pulse Ox 97 97 O2 Delivery Room Air Room Air Room Air Blood Pressure Mean: 94 Progress Progress Note : Progress Note Seen and evaluated. Orthostatic vital signs done by nurse and mildly positive with increased heart rate and decrease in blood pressure but systolic remained above 100 throughout testing. IV, labs, EKG, chest x-ray, ASA 324 mg by mouth ordered. LR 1 L bolus. Monitor patient. I have reviewed [facility] notes and patient did in fact leave on 04/25/20 AGAINST MEDICAL ADVICE. He did have acceptance for skilled facility at [facility]. This was no longer available after he left AGAINST MEDICAL ADVICE. He did have negative COVID-19 testing on 04/07/20. He did have prolonged stay from 04/07/20 until 04/25/20 related to syncope and atrial fibrillation and also is noted to have hypothyroidism. 0032: Troponin noted to be mildly elevated. Chest x-ray and EKG noted. No laboratory findings concerning for COVID-19 and has had recent negative testing. Patient's initial presentation consistent with previous presentation. Due to elevated troponin, patient will need admission. Monitor patient. 0037: I discussed the case with Dr. Hurd. He is recommending admission and he will follow in the morning and see him in consult. 0040: I discussed the case with Dr. Perdomo who agrees to admission, observation status. Discussed with patient who agrees with plan. Initial ECG Impression Date: Apr 27, 2020 Initial ECG Impression Time: 22:55 Initial ECG Rate: 87 Initial ECG Rhythm: Normal Sinus Comment Sinus rhythm with left anterior fascicular block. Prolonged QT interval. Left axis deviation. No evidence of ST elevation NM. Similar to previous of 04/06/20. Interpreted by me. Diagnostic Imaging Diagonstic Imaging: Xray Plain Films/CT/US/NM/MRI: chest Comments Bibasilar atelectasis Reviewed: Reviewed by Me Departure Communication (Admissions) Time/Spoke to Admitting Phy: 00:40 Time/Spoke to Consulting Phy: 00:37 Impression Primary Impression: Chest pain Qualified Codes: R07.9 - Chest pain, unspecified Additional Impressions: Near syncope Elevated troponin Disposition: ADMITTED INPATIENT Condition: Stable Admissions Decision to Admit Reason: Admit from ER (General) Decision to Admit/Date: Apr 27, 2020 Time/Decision to Admit Time: 00:37 Departure-Patient Inst. Referrals: [facility] (PCP) Primary Care Physician NIKKI WILEY APRN (Family) Primary Care Physician SAJAN CRUZ MD Apr 27, 2020 00:07
--- NOTE | 2020-04-27 01:25 | NUR ---
JUAN CARLOS GAFFNEY admitted to room 408-1, with an admitting diagnosis of Chest pain & near syncope, on 04/27/20 from Ed via , accompanied by staff.JUAN CARLOS GAFFNEY introduced to surroundings, call light, bed controls, phone, TV, temperature control, lights, meal times, smoking policy, visitor policy, side rail policy, bathrooms and showers. Patient Rights given to patient in the handbook. JUAN CARLOS GAFFNEY verbalizes understanding that [facility] is not responsible for the loss or damage to any personal effects or valuables that are kept in the patients possession during their hospitalization. Patient denies any questions or concerns at this time.
[2020-04-27] MEDS ORDERED: morphine INJ 4 MG/ML 1 ML (VIAL/SYRINGE) IV PRN (01:45)
[2020-04-27] MEDS: oxyCODONE/APAP 10/325MG (PERCOCET 10) TABLET PO PRN ×4 (03:28→23:06)
--- NOTE | 2020-04-27 03:44 | NUR ---
0247-pt states that he has chronic head & neck pain 10 numerically-pt reports that he takes oxycodone for the pain at home & would like to have it restarted. during the admission process pt stated that several times earlier in the day he felt like he would be better off not living. pt denies having an active plan to end his life, denies suicidal thoughts right now, but does feel very lonely. pt states that his son has very little to do with him. pt states that he has had extended stays in the hospital & is just very tired of fighting to stay well. this rn contacted dr. guajardo about pt pain & informed her of patient's thoughts of not wanting to live. oxycodone order received 0315-no harm contract signed by patient 0340-telesitter set up in patient's room
[2020-04-27 05:31] LABS: BASOPHILS # (AUTO) 0.1 10^3/uL (0.0-0.1); BASOPHILS % (AUTO) 1 % (0-10); EOSINOPHILS # (AUTO) 0.5 10^3/uL (0.0-0.3); EOSINOPHILS % (AUTO) 5 % (0-10); HEMATOCRIT 33 % (40-54); HEMOGLOBIN 10.8 G/DL (13.3-17.7); LYMPHOCYTES # (AUTO) 1.6 X 10^3 (1.0-4.0); LYMPHOCYTES % (AUTO) 15 % (12-44); MEAN CORPUSCULAR HEMOGLOBIN 27 PG (25-34); MEAN CORPUSCULAR HGB CONC 33 G/DL (32-36); MEAN CORPUSCULAR VOLUME 80 FL (80-99); MEAN PLATELET VOLUME 10.3 FL (7.4-10.4); MONOCYTES # (AUTO) 1.2 X 10^3 (0.0-1.0); MONOCYTES % (AUTO) 12 % (0-12); NEUTROPHILS # (AUTO) 6.9 X 10^3 (1.8-7.8); NEUTROPHILS % (AUTO) 67 % (42-75); PLATELET COUNT 562 10^3/uL (130-400); RED CELL DISTRIBUTION WIDTH 14.9 % (10.0-14.5); WHITE BLOOD COUNT 10.3 10^3/uL (4.3-11.0)
[2020-04-27 05:53] LABS: ALANINE AMINOTRANSFERASE 12 U/L (0-55); ALBUMIN 3.5 GM/DL (3.2-4.5); ALKALINE PHOSPHATASE 102 U/L (40-136); BILIRUBIN,TOTAL 0.3 MG/DL (0.1-1.0); BUN/CREATININE RATIO 12; CALCIUM 9.1 MG/DL (8.5-10.1); CARBON DIOXIDE 22 MMOL/L (21-32); CHLORIDE 109 MMOL/L (98-107); CHOLESTEROL 124 MG/DL (< 200); CREATININE SERUM 1.06 MG/DL (0.60-1.30); GFR ESTIMATED > 60; GLUCOSE 128 MG/DL (70-105); HDL CHOLESTEROL 30 MG/DL (40-60); POTASSIUM 3.2 MMOL/L (3.6-5.0); SODIUM 141 MMOL/L (135-145); TOTAL PROTEIN 6.2 GM/DL (6.4-8.2); TRIGLYCERIDES 72 MG/DL (<150); VLDL CHOLESTEROL 14 MG/DL (5-40)
[2020-04-27] MEDS: LEVOTHYROXINE 50 MCG (LEVOTHROID) TAB PO SCH (06:14)
--- NOTE | 2020-04-27 07:55 | Diagnostic Imaging Report ---
EXAMINATION: Chest 1 view HISTORY: Chest pain COMPARISON: 04/02/2020 FINDINGS: There is mild bibasilar atelectasis. Otherwise, the lungs are clear without edema or pneumonia. No pleural effusion or pneumothorax. Heart size is normal. IMPRESSION: 1. Mild atelectasis, otherwise clear lungs. Dictated by: Dictated on workstation # [id number]
[2020-04-27] MEDS: APIXABAN 5 MG (ELIQUIS) TABLET PO SCH ×2 (08:38→19:35)
[2020-04-27] MEDS: AMIODARONE 200 MG (CORDARONE) TAB PO SCH (08:39)
[2020-04-27] MEDS: ASPIRIN E.C. 81 MG (ECOTRIN) TAB PO SCH (08:39)
[2020-04-27] MEDS ORDERED: dilTIAZem120 MG (CARDIZEM CD) CAP PO SCH (09:00)
[2020-04-27] MEDS: ONDANSETRON 4 MG/2 ML (SDV) Z0FRAN IV PRN (09:30)
--- NOTE | 2020-04-27 11:23 | Consultation-Cardiology ---
HPI-Cardiology Cardiology Consultation: Date of Consultation 04/27/20 Time Seen by a Provider: 11:00 Date of Admission Attending Physician Hermila Perdomo MD Admitting Physician [place] Consulting Physician KAYLAN FULTON MD, MA, FACP, FACC, [facility], CCDS Primary lace stripper: Dr Wilder HPI: Chief Complaint: CC: Weakness, especially of the legs HPI 59 yo man who has been admitted to dr Perdomo for bilat leg weakness and inability to stand on his feet; feels weak and dizzy, as if he may pass out, when on his feet. Has spent 8 of the last 9 weeks in hospitals, mostly [facility], until he signed himself out from [facility] day before yesterday. The very next day he came to this hospital's ER and was admitted for the symptoms described above. Also note L upper chest discomfort persistent for 2-3 days, waxing and waning, generally mild, nonradiating, w/o aggravating or relieving factors, sometimes sharp, sometimes dull, not experienced before. States has had hospitalization in February and March 2020 for sepsis. Reports A Fib ablation in by Dr Rodriguez. Thinks had recurrence of A Fib in February [address] Rodriguez told him he may need repeat ablation. Notes gen anxiety. Poor appetite. Intermittent nausea and vomiting. No abd pain. No leg swelling. Reports loss of 40 lbs in the last 2 months. Review of Systems-Cardiology Review of Systems Constitutional: malaise, tiredness, weight loss, other (see under HPI) Eyes: No vision change Ears/Nose/Throat: No ear discharge, No nasal drainage, No recent hearing loss Respiratory: As described under HPI Cardiovascular: As described under HPI Gastrointestinal: As described under HPI Genitourinary: No dysuria, No hematuria, No urine frequency changes Musculoskeletal: No back pain, No joint pain Skin: No rash, No ulcerations Psychiatric/Neurological: other (see under HPI); No focal weakness Hematologic: No bleeding abnormalities All Other Systems Reviewed Negative Unless Noted: Yes VDF-Yhcyqh-Rquvzq Hx Patient Social History Alcohol Use: Denies Use Recreational Drug Use: No Smoking Status: Former Smoker Type Used: Cigarettes 2nd Hand Smoke Exposure: No Recent Foreign Travel: No Recent Infectious Disease Expo: No Hospitalization with Isolation: Denies Immunizations Up To Date Tetanus Booster (TDap): Unknown Date of Pneumonia Vaccine: Jul 21, 2018 Date of Influenza Vaccine: Jul 21, 2018 Past Medical History PMH As described under Assessment. Family Medical History Family History: FH: emphysema 19 MOTHER FH: lung cancer 19 FATHER Allergies and Home Medications Allergies Uncoded Allergies: IV contrast (Allergy, Unknown, 03/11/20) Home Medications Alprazolam 1 Mg Tablet, 0.5 MG PO DAILY PRN for ANXIETY, (Reported) Alprazolam 1 Mg Tablet, 1 MG PO HS PRN for ANXIETY, (Reported) Amiodarone HCl 200 Mg Tablet, 200 MG PO BID Prescribed by: JUAN MANUEL EVANS on 04/03/20 0957 Apixaban 5 Mg Tablet, 5 MG PO BID, (Reported) Atorvastatin Calcium 40 Mg Tablet, 40 MG PO DAILY, (Reported) Levothyroxine Sodium 50 Mcg Tablet, 50 MCG PO DAILY, (Reported) Lisinopril 10 Mg Tablet, 10 MG PO DAILY, (Reported) Oxycodone HCl 10 Mg Tablet, 10 MG PO Q6H PRN for PAIN-SEVERE (8-10), (Reported) Potassium Chloride 10 Meq Tablet.er, 10 MEQ PO DAILY@0700 Prescribed by: JUAN MANUEL EVANS on 04/03/20 0957 Patient Home Medication List Home Medication List Reviewed: Yes Physical Exam-Cardiology Physical Exam Vital Signs/I&O 04/27/20 04/27/20 04/27/20 04/27/20 01:18 01:29 01:45 01:50 Temp 36.7 37.1 37.1 Pulse 77 85 85 Resp 16 18 18 B/P (MAP) 136/94 (94) 147/86 147/86 (106) Pulse Ox 98 97 97 O2 Delivery Room Air Room Air Room Air Room Air 04/27/20 04/27/20 04/27/20 04/27/20 02:27 04:00 07:00 08:00 Temp 37.0 Pulse 78 81 76 Resp 20 B/P (MAP) 126/79 (95) Pulse Ox 97 O2 Delivery Room Air Room Air 04/27/20 08:10 Temp 36.6 Pulse 76 Resp 18 B/P (MAP) 126/79 (95) Pulse Ox 97 O2 Delivery Room Air Capillary Refill : Less Than 3 Seconds Constitutional: AAO x 3, well-developed, well-nourished, other (appears somewhat anxious and nervous, shaking both legs) HEENT: PERRL, EOMI, hearing is well preserved Neck: carotid pulses are 2 + bilaterally, with good upstrokes Respiratory: No accessory muscle use; other (fair to good bilat air entry, coarse basal crackles on the L) Cardiovascular: regular rate-rhythm, S1 and S2, systolic murmur (soft GRISELDA at ca rd base) Gastrointestinal: No tender; soft; No guarding, No rebound; audible bowel sounds Extremities: No clubbing, No cyanosis, No significant edema Neurologic/Psychiatric: oriented x 3, other (moves all limbs equally) Skin: warm/dry; No cyanosis, No cool, No diaphoresis, No rash on exposed areas, No ulcerations on exposed areas Data Review Labs Laboratory Tests 04/26/20 23:00: White Blood Count 11.0, Red Blood Count 4.47, Hemoglobin 11.9L, Hematocrit 36L, Mean Corpuscular Volume 80, Mean Corpuscular Hemoglobin 27, Mean Corpuscular Hemoglobin Concent 33, Red Cell Distribution Width 15.3H, Platelet Count 583H, Mean Platelet Volume 10.0, Neutrophils (%) (Auto) 70, Lymphocytes (%) (Auto) 16, Monocytes (%) (Auto) 10, Eosinophils (%) (Auto) 3, Basophils (%) (Auto) 1, Neutrophils # (Auto) 7.7, Lymphocytes # (Auto) 1.8, Monocytes # (Auto) 1.1H, E osinophils # (Auto) 0.4H, Basophils # (Auto) 0.1, Erythrocyte Sedimentation Rate 30, Prothrombin Time 15.6H, INR Comment 1.2, Activated Partial Thromboplast Time 31, D-Dimer 0.51H, Sodium Level 140, Potassium Level 3.5L, Chloride Level 109H, Carbon Dioxide Level 21, Anion Gap 10, Blood Urea Nitrogen 16, Creatinine 1.04, Estimat Glomerular Filtration Rate > 60, BUN/Creatinine Ratio 15, Glucose Level 96, Calcium Level 9.5, Corrected Calcium 9.7, Magnesium Level 1.9, Total Bilirubin 0.3, Aspartate Amino Transf (AST/SGOT) 14, Alanine Aminotransferase (ALT/SGPT) 13, Alkaline Phosphatase 112, Lactate Dehydrogenase 155, Myoglobin 36.8, Troponin I 0.109H, C-Reactive Protein High Sensitivity 1.27H, Total Protein 6.5, Albumin 3.8, Procalcitonin 0.03 04/27/20 04:55: White Blood Count 10.3, Red Blood Count 4.06L, Hemoglobin 10.8L, Hematocrit 33L, Mean Corpuscular Volume 80, Mean Corpuscular Hemoglobin 27, Mean Corpuscular Hemoglobin Concent 33, Red Cell Distribution Width 14.9H, Platelet Count 562H, Mean Platelet Volume 10.3, Neutrophils (%) (Auto) 67, Lymphocytes (%) (Auto) 15, Monocytes (%) (Auto) 12, Eosinophils (%) (Auto) 5, Basophils (%) (Auto) 1, Neutrophils # (Auto) 6.9, Lymphocytes # (Auto) 1.6, Monocytes # (Auto) 1.2H, Eosinophils # (Auto) 0.5H, Basophils # (Auto) 0.1, Sodium Level 141, Potassium Level 3.2L, Chloride Level 109H, Carbon Dioxide Level 22, Anion Gap 10, Blood Urea Nitrogen 13, Creatinine 1.06, Estimat Glomerular Filtration Rate > 60, BUN/Creatinine Ratio 12, Glucose Level 128H, Calcium Level 9.1, Corrected Calcium 9.5, Total Bilirubin 0.3, Aspartate Amino Transf (AST/SGOT) 12, Alanine Aminotransferase (ALT/SGPT) 12, Alkaline Phosphatase 102, Troponin I 0.123H, To jim Protein 6.2L, Albumin 3.5, Triglycerides Level 72, Cholesterol Level 124, LDL Cholesterol Direct 74, VLDL Cholesterol 14, HDL Cholesterol 30L Laboratory Tests 04/26/20 23:00 04/27/20 04:55 A/P-Cardiology Assessment/Admission Diagnosis Marked weakness and wgt loss due to prolonged hospitalizations for 8 out of 9 weeks of February, March, and Apr 2020 Long hospitalizations for sepsis in February, March, and Apr 2020 Orthostatic symptoms w/o orthostatic hypotension PAF, s/p ablation by Dr Rodriguez at [facility] in 2018 or 2019; pt reports to have had recurrence in February 2020 Mild CAD consisting of mild to mod dz of the LAD that has been unchanged on card caths of 2014, 2017, and 2018 (last in Sep [address] Wilder) Echo of 03/31/20: LVEF 55-65%, mod MR, PASP 35-40 mmHg Mild troponin elevation w/o evidence of ACS: type 2 IN Discussion and Recomendations * Replenish K * Advised to increase oral intake and focus on nutrition * D/c long-acting dilt (no A Fib at this time) * Continue amiodarone * PT/OT Clinical Quality Measures AMI/AHF: ASA po Prior to arrival: No DVT/VTE Risk/Contraindication: Risk Factor Score Per Nursin RFS Level Per Nursing on Admit: 4+=Very High KAYLAN FULTON MD FACP FAC CCDS Apr 27, 2020 11:23
[2020-04-27] MEDS ORDERED: KCL 20 MEQ TAB (K-DUR) PO ONE (11:45)
[2020-04-27] MEDS ORDERED: ALPRAZolam 1 MG (XANAX) TAB PO PRN (12:15)
[2020-04-27] MEDS ORDERED: MECLIZINE 25 MG (ANTIVERT) TAB PO PRN (12:15)
--- NOTE | 2020-04-27 12:19 | History & Physical-Hospitalist ---
History of Present Illness HPI/Chief Complaint This is a 59-year-old white male who was recently discharged from [facility] after an extended hospital stay for atrial fibrillation and deconditioning. The patient had gone AMA even though he had been approved for usp. He was frustrated by his weakness and thought he could make it at home. He then began developing chest pain and presented to our emergency room with an elevated troponin. At The time of my interview this morning the patient is rather Morose but has no complaints of chest pain. He has diffuse tremors that he said he's had since he was on the ventilator. He said that he did not take advantage of a opportunity to go to rehabilitation and strengthening and he regrets it now. He complains of dizziness with standing, loss of apetitte and nausea without vomiting. He notes he is afraid to go to sleep. Source: patient Exam Limitations: no limitations Date Seen 04/27/20 Time Seen by a Provider: 10:30 Attending Physician Ariana Perdomo MD [facility] Referring Physician Date of Admission Apr 27, 2020 at 00:47 Home Medications & Allergies Home Medications Reviewed patient Home Medication Reconciliation performed by pharmacy medication reconciliations analytical technician and/or nursing. Patients Allergies have been reviewed. Allergies Allergies Uncoded Allergies IV contrast ( Allergy, Unknown, 03/11/20) Past Fljtrhc-Waxnld-Erpxle Hx Past Med/Social Hx: Reviewed Nursing Past Med/Soc Hx Patient Social History Marrital Status: single Employed/Student: unemployed Alcohol Use: Denies Use Recreational Drug Use: No Smoking Status: Former Smoker Former Smoker, Quit: Jul 12, 1985 Type Used: Cigarettes 2nd Hand Smoke Exposure: No Recent Foreign Travel: No Contact w/other who traveled: No Recent Hopitalizations: No Recent Infectious Disease Expo: No Immunizations Up To Date Tetanus Booster (TDap): Unknown Date of Pneumonia Vaccine: Jul 21, 2018 Date of Influenza Vaccine: Jul 21, 2018 Seasonal Allergies Seasonal Allergies: No Past Medical History Surgeries: Appendectomy, Bowel Surgery Respiratory: Pneumonia, Pulmonary Embolism Cardiac: Atrial Fibrillation, High Cholesterol, Hypertension, Irregular Heartbeat Neurological: Headaches /Migraines Reproductive: No Sexually Transmitted Disease: Yes (Hep C: treated) HIV/AIDS: No Genitourinary: Prostate Problems Gastrointestinal: Diverticulosis, Hemorrhoids Musculoskeletal: Arthritis, Chronic Back Pain Endocrine: Hypothyroidsim Loss of Vision: Denies Hearing Impairment: Denies Cancer: Colon Did You Recieve Any Treatments: Yes What Type of Treatment Did You: Surgical Intervention Psychosocial: Anxiety, Depression History of Blood Disorders: No Adverse Reaction to Blood Anne: No Family History Reviewed Nursing Family Hx FH: emphysema 19 MOTHER FH: lung cancer 19 FATHER Heart Disease, Hypertension Review of Systems Constitutional: see HPI Respiratory: dyspnea on exertion Cardiovascular: palpitations Gastrointestinal: no symptoms reported Genitourinary: no symptoms reported Musculoskeletal: joint pain, muscle weakness Skin: no symptoms reported Psychiatric/Neurological: Anxiety, Depressed, Other (Dizziness) Physical Exam Physical Exam Vital Signs Vital Signs - First Documented 04/26/20 22:53 Temp 36.9 Pulse 87 Resp 16 B/P (MAP) 131/89 (103) Capillary Refill : Less Than 3 Seconds Height, Weight, BMI Height: 6'0" Weight: 224lbs. 0oz. 101.670385up; 39.30 BMI Method:Stated General Appearance: No Apparent Distress, WD/WN, Other (Uncapped) HEENT: Other Neck: Limited Range of Motion Respiratory: Chest Non Tender, Lungs Clear, Normal Breath Sounds, No Accessory Muscle Use, No Respiratory Distress Cardiovascular: Systolic Murmur, Irregularly Irregular Gastrointestinal: Normal Bowel Sounds, Non Tender, Soft Rectal: Deferred Back: Normal Inspection Neurologic/Psychiatric: Alert, Oriented x3, personal coach II-XII Norm as Tested, Depressed Affect, Other (Tremors of his lower legs and upper without cogwheeling) Results Results/Procedures Labs Laboratory Tests 04/26/20 23:00 04/27/20 04:55 Patient resulted labs reviewed. Assessment/Plan Admission Diagnosis Chest pain -possibly Unstable angina- but it is vague in his description without precipitating factors- Coronary artery disease Chronic paroxysmal atrial fibrillation- currently in sinus on amiodarone, Chronic depression and anxiety Failed back Diffuse weakness with mild orthostasis most likely secondary to prolonged hospitalizations poor social situation without emotional support We'll check an a.m. cortisol especially since he had symptoms of orthostasis. Beta diana may be helpful and avoiding pranav inhibitors. Patient will be seen by cardiology. Because of his depression will have a psychological consult as well. Hopefully he can be evaluated for rehabilitation unit here and participate Admission Status: Observation Clinical Quality Measures AMI/AHF: ASA po Prior to arrival: No DVT/VTE Risk/Contraindication: Risk Factor Score Per Nursin RFS Level Per Nursing on Admit: 4+=Very High Copy Copies To 1: [facility]/ARIANA VALDIVIA MD Apr 27, 2020 12:19
[2020-04-27] MEDS ORDERED: ALPRAZolam 0.5 MG (XANAX) TAB PO PRN (12:30)
[2020-04-27] MEDS: ALPRAZolam 0.5 MG (XANAX) TAB PO PRN (20:49)
--- NOTE | 2020-04-27 20:50 | NUR ---
PT. ANXIOUS DR. JAEGER NOTIFIED, NEW ORDERS RECEIVED: XANAX 0.5MG Q6HRS PRN
--- NOTE | 2020-04-27 23:00 | NUR ---
PT. COMPLAINING OF CHEST PAIN. VITAL SIGNS TAKEN, AND PRN EKG DONE- SINUS RHYTHM WILL CONTINUE TO MONITOR.
[2020-04-28] VITALS: BP 112/72
[2020-04-28 04:00] VITALS: BP 99/57
[2020-04-28 05:08] LABS: BASOPHILS # (AUTO) 0.1 10^3/uL (0.0-0.1); BASOPHILS % (AUTO) 1 % (0-10); EOSINOPHILS # (AUTO) 0.9 10^3/uL (0.0-0.3); EOSINOPHILS % (AUTO) 10 % (0-10); HEMATOCRIT 30 % (40-54); LYMPHOCYTES # (AUTO) 1.8 X 10^3 (1.0-4.0); LYMPHOCYTES % (AUTO) 20 % (12-44); MEAN CORPUSCULAR HEMOGLOBIN 27 PG (25-34); MEAN CORPUSCULAR HGB CONC 33 G/DL (32-36); MEAN CORPUSCULAR VOLUME 81 FL (80-99); MEAN PLATELET VOLUME 9.8 FL (7.4-10.4); MONOCYTES # (AUTO) 1.2 X 10^3 (0.0-1.0); MONOCYTES % (AUTO) 14 % (0-12); NEUTROPHILS # (AUTO) 5.1 X 10^3 (1.8-7.8); NEUTROPHILS % (AUTO) 56 % (42-75); PLATELET COUNT 499 10^3/uL (130-400); RED CELL DISTRIBUTION WIDTH 15.3 % (10.0-14.5)
[2020-04-28 05:32] LABS: BUN/CREATININE RATIO 11; CALCIUM 8.5 MG/DL (8.5-10.1); CARBON DIOXIDE 24 MMOL/L (21-32); CHLORIDE 107 MMOL/L (98-107); CREATININE SERUM 1.02 MG/DL (0.60-1.30); GFR ESTIMATED > 60; GLUCOSE 103 MG/DL (70-105); MAGNESIUM 1.8 MG/DL (1.6-2.4); POTASSIUM 3.8 MMOL/L (3.6-5.0); SODIUM 137 MMOL/L (135-145)
[2020-04-28] MEDS: KCL 10 MEQ TAB (MICRO K) PO SCH (06:07)
[2020-04-28] MEDS: LEVOTHYROXINE 50 MCG (LEVOTHROID) TAB PO SCH (06:07)
[2020-04-28] MEDS: ONDANSETRON 4 MG/2 ML (SDV) Z0FRAN IV PRN (08:16)
[2020-04-28] MEDS: AMIODARONE 200 MG (CORDARONE) TAB PO SCH (08:17)
[2020-04-28] MEDS: APIXABAN 5 MG (ELIQUIS) TABLET PO SCH ×2 (08:17→20:39)
[2020-04-28] MEDS: ASPIRIN E.C. 81 MG (ECOTRIN) TAB PO SCH (08:17)
[2020-04-28 08:21] VITALS: BP 109/70
[2020-04-28] MEDS ORDERED: LEVOTHYROXINE 50 MCG (LEVOTHROID) TAB PO SCH (09:00)
[2020-04-28 11:37] VITALS: BP 103/76
[2020-04-28] MEDS: ALPRAZolam 0.5 MG (XANAX) TAB PO PRN ×2 (12:13→20:39)
--- NOTE | 2020-04-28 13:24 | Progress Note - Hospitalist ---
Subjective HPI/CC On Admission Date Seen by Provider: Apr 28, 2020 Time Seen by Provider: 12:00 This is a 59-year-old white male who was recently discharged from [facility] after an extended hospital stay for atrial fibrillation and deconditioning. The patient had gone AMA even though he had been approved for nursing home. He was frustrated by his weakness and thought he could make it at home. He then began developing chest pain and presented to our emergency room with an elevated troponin. At The time of my interview this morning the patient is rather Morose but has no complaints of chest pain. He has diffuse tremors that he said he's had since he was on the ventilator. He said that he did not take advantage of a opportunity to go to rehabilitation and strengthening and he regrets it now. He complains of dizziness with standing, loss of apetitte and nausea without vomiting. He notes he is afraid to go to sleep. Subjective/Events-last exam Patient appears to be stronger today he actually got up to the bathroom with a walker and is looking forward to getting a shower today he says he feels better does not appear to be nearly a shaky. Review of Systems Gastrointestinal: Nausea, Vomiting Neurological: Weakness Objective Exam Vital Signs Vital Signs Date Time Temp Pulse Resp B/P (MAP) Pulse Ox O2 Delivery O2 Flow Rate FiO2 04/28/20 12:57 77 04/28/20 11:37 37.1 18 103/76 (85) 95 Room Air Capillary Refill : Less Than 3 Seconds General Appearance: No Apparent Distress HEENT: Other Neck: Full Range of Motion, Normal Inspection, Non Tender Respiratory: Chest Non Tender, Lungs Clear, Normal Breath Sounds, No Accessory Muscle Use, No Respiratory Distress Cardiovascular: Regular Rate, Rhythm, No Gallop, No JVD, Normal Peripheral Pulses Gastrointestinal: Normal Bowel Sounds, Non Tender, Soft Rectal: Deferred Back: Normal Inspection, No CVA Tenderness, No Vertebral Tenderness Extremity: Normal Range of Motion, Non Tender, No Calf Tenderness Neurologic/Psychiatric: Alert, Oriented x3, Depressed Affect Results/Procedures Lab Laboratory Tests 04/28/20 04:45 Patient resulted labs reviewed. Assessment/Plan Assessment and Plan Assess & Plan/Chief Complaint Chest pain -resolved Coronary artery disease Chronic paroxysmal atrial fibrillation- currently in sinus on amiodarone, Chronic depression and anxiety-social work consult and psychology consult Failed back-with chronic pain issues Diffuse weakness with mild orthostasis most likely secondary to prolonged hospitalizations-PT OT and rehabilitation have consult poor social situation without emotional support Nausea and vomiting of uncertain etiology will treat for gastritis and perhaps use Reglan does well Clinical Quality Measures AMI/AHF: ASA po Prior to arrival: No DVT/VTE Risk/Contraindication: Risk Factor Score Per Nursin RFS Level Per Nursing on Admit: 4+=Very High ARIANA JAEGER MD Apr 28, 2020 13:24
[2020-04-28 15:53] VITALS: BP 90/54
[2020-04-28] MEDS: METOCLOPRAMIDE INJ 10 MG/2 ML (REGLAN) IVP SCH ×2 (16:04→20:40)
--- NOTE | 2020-04-28 16:24 | Progress Note - Cardiology ---
Cardiology SOAP Progress Note Subjective: Nausea and vomiting this am. Couldn't keep food down No cp No shortness of breath at rest No focal weakness Gen weakness and malaise persistent Objective: I&O/Vital Signs 04/28/20 04/28/20 04/28/20 04/28/20 07:00 08:21 08:45 11:37 Temp 36.9 37.1 Pulse 70 78 76 Resp 18 18 B/P (MAP) 109/70 (83) 103/76 (85) Pulse Ox 96 95 O2 Delivery Room Air Room Air Room Air 04/28/20 04/28/20 12:57 15:53 Temp 37.1 Pulse 77 81 Resp 15 B/P (MAP) 90/54 (66) Pulse Ox 97 O2 Delivery Room Air 04/28/20 00:00 Intake Total 1700 ml Output Total 1100 ml Balance 600 ml Weight (Pounds): 224 Weight (Ounces): 0 Weight (Calculated Kilograms): 101.152894 Constitutional: AAO x 3, well-developed, well-nourished, other (appears somewhat anxious and nervous, shaking both legs) Respiratory: No accessory muscle use; other (fair to good bilat air entry, coarse basal crackles on the L) Cardiovascular: regular rate-rhythm, S1 and S2, systolic murmur (soft GRISELAD at card base) Gastrointestional: No tender; soft; No guarding, No rebound; audible bowel sounds Extremities: No clubbing, No cyanosis, No significant edema Neurologic/Psychiatric: oriented x 3, other (moves all limbs equally) Skin: warm/dry; No cyanosis, No cool, No diaphoresis, No rash on exposed areas, No ulcerations on exposed areas Results/Procedures: Labs Laboratory Tests 04/28/20 04:45: White Blood Count 9.0, Red Blood Count 3.70L, Hemoglobin 10.0L, Hematocrit 30L, Mean Corpuscular Volume 81, Mean Corpuscular Hemoglobin 27, Mean Corpuscular Hemoglobin Concent 33, Red Cell Distribution Width 15.3H, Platelet Count 499H, Mean Platelet Volume 9.8, Neutrophils (%) (Auto) 56, Lymphocytes (%) (Auto) 20, Monocytes (%) (Auto) 14H, Eosinophils (%) (Auto) 10, Basophils (%) (Auto) 1, Neutrophils # (Auto) 5.1, Lymphocytes # (Auto) 1.8, Monocytes # (Auto) 1.2H, Eosinophils # (Auto) 0.9H, Basophils # (Auto) 0.1, Sodium Level 137, Potassium Level 3.8, Chloride Level 107, Carbon Dioxide Level 24, Anion Gap 6, Blood Urea Nitrogen 11, Creatinine 1.02, Estimat Glomerular Filtration Rate > 60, BUN/Creatinine Ratio 11, Glucose Level 103, Calcium Level 8.5, Magnesium Level 1.8 Laboratory Tests 04/26/20 23:00 04/27/20 04:55 04/28/20 04:45 A/P: Assessment: Marked weakness and wgt loss due to prolonged hospitalizations for sepsis in February, March, and Apr 2020 Nausea and vomiting and poor oral intake Orthostatic symptoms/hypotension PAF, s/p ablation by Dr Rodriguez at [facility] in 2018 or 2019; pt reports to have had recurrence in February 2020 Mild CAD consisting of mild to mod dz of the LAD that has been unchanged on card caths of 2014, 2017, and 2018 (last in Sep [address] Wilder to eval minimal tro ponin elev) Echo of 03/31/20: LVEF 55-65%, mod MR, PASP 35-40 mmHg Mild troponin elevation w/o evidence of ACS: type 2 ND (likely due to transient hypotension due to meds and low oral intake) Plan: * Advised increased oral intake and improved nutrition. Meanwhile, iv fluids * Diltiazem d/c'd (because of h/o intermittently low bp and postural symptoms) * Reduce amiodarone (pt reports nausea after current dose of amiodarone) * PT/OT * Monitor labs Clinical Quality Measures AMI/AHF: ASA po Prior to arrival: KAYLAN Kelly MD FACP FAC CCDS Apr 28, 2020 16:24
[2020-04-28] MEDS: NS IV 1000 ML 1,000 ML IV SCH (17:00)
[2020-04-28 19:37] VITALS: BP 106/61
[2020-04-29] VITALS: BP 109/69
[2020-04-29] MEDS: NS IV 1000 ML 1,000 ML IV SCH ×3 (02:58→22:40)
[2020-04-29] MEDS: ALPRAZolam 0.5 MG (XANAX) TAB PO PRN (03:04)
[2020-04-29 03:42] VITALS: BP 125/78
[2020-04-29 05:29] LABS: BASOPHILS # (AUTO) 0.1 10^3/uL (0.0-0.1); BASOPHILS % (AUTO) 1 % (0-10); EOSINOPHILS % (AUTO) 9 % (0-10); HEMATOCRIT 31 % (40-54); HEMOGLOBIN 9.9 G/DL (13.3-17.7); LYMPHOCYTES # (AUTO) 1.2 X 10^3 (1.0-4.0); LYMPHOCYTES % (AUTO) 11 % (12-44); MEAN CORPUSCULAR HEMOGLOBIN 27 PG (25-34); MEAN CORPUSCULAR HGB CONC 32 G/DL (32-36); MEAN CORPUSCULAR VOLUME 82 FL (80-99); MEAN PLATELET VOLUME 10.6 FL (7.4-10.4); MONOCYTES # (AUTO) 1.4 X 10^3 (0.0-1.0); MONOCYTES % (AUTO) 13 % (0-12); NEUTROPHILS # (AUTO) 6.8 X 10^3 (1.8-7.8); NEUTROPHILS % (AUTO) 66 % (42-75); PLATELET COUNT 498 10^3/uL (130-400); WHITE BLOOD COUNT 10.3 10^3/uL (4.3-11.0)
[2020-04-29 05:51] LABS: POTASSIUM 4.2 MMOL/L (3.6-5.0)
[2020-04-29 05:52] LABS: CALCIUM 8.3 MG/DL (8.5-10.1)
[2020-04-29 05:56] LABS: CREATININE SERUM 1.24 MG/DL (0.60-1.30)
[2020-04-29 05:59] LABS: MAGNESIUM 1.9 MG/DL (1.6-2.4)
[2020-04-29] MEDS: KCL 10 MEQ TAB (MICRO K) PO SCH (06:18)
[2020-04-29] MEDS: METOCLOPRAMIDE INJ 10 MG/2 ML (REGLAN) IVP SCH ×4 (06:18→22:24)
[2020-04-29] MEDS: LEVOTHYROXINE 50 MCG (LEVOTHROID) TAB PO SCH (06:18)
[2020-04-29] MEDS: oxyCODONE/APAP 10/325MG (PERCOCET 10) TABLET PO PRN ×2 (06:36→12:10)
[2020-04-29 08:00] VITALS: BP 120/73
--- NOTE | 2020-04-29 08:41 | Progress Note - Cardiology ---
Cardiology SOAP Progress Note Subjective: Sitting up in bed. States he feels better this morning. Nausea improved. C/O chest heaviness, but reports chronic and unchanged. No c/o dyspnea, palpitations, syncope or near syncope. Objective: I&O/Vital Signs 04/29/20 04/29/20 04/29/20 04/29/20 01:00 03:42 07:00 08:00 Temp 37.2 Pulse 81 81 83 Resp 18 B/P (MAP) 125/78 (94) Pulse Ox 97 O2 Delivery Room Air Room Air 04/29/20 08:00 Temp 36.3 Pulse 81 Resp 17 B/P (MAP) 120/73 (89) Pulse Ox 95 O2 Delivery Room Air 04/29/20 00:00 Intake Total 990 ml Output Total 400 ml Balance 590 ml Weight (Pounds): 224 Weight (Ounces): 0 Weight (Calculated Kilograms): 101.656231 Constitutional: AAO x 3, well-developed, well-nourished, other (appears somewhat anxious and nervous, shaking both legs) Respiratory: No accessory muscle use, No respiratory distress; other (fair to good bilat air entry, coarse basal crackles on the L) Cardiovascular: regular rate-rhythm, S1 and S2, systolic murmur (soft GRISELDA at c antonina base) Gastrointestional: No tender; soft; No guarding, No rebound; audible bowel sounds Extremities: No clubbing, No cyanosis, No significant edema Neurologic/Psychiatric: oriented x 3, other (moves all limbs equally) Skin: warm/dry; No cyanosis, No cool, No diaphoresis, No rash on exposed areas, No ulcerations on exposed areas Results/Procedures: Labs Laboratory Tests 04/29/20 04:37: White Blood Count 10.3, Red Blood Count 3.74L, Hemoglobin 9.9L, Hematocrit 31L, Mean Corpuscular Volume 82, Mean Corpuscular Hemoglobin 27, Mean Corpuscular Hemoglobin Concent 32, Red Cell Distribution Width 15.0H, Platelet Count 498H, Mean Platelet Volume 10.6H, Neutrophils (%) (Auto) 66, Lymphocytes (%) (Auto) 11L, Monocytes (%) (Auto) 13H, Eosinophils (%) (Auto) 9, Basophils (%) (Auto) 1, Neutrophils # (Auto) 6.8, Lymphocytes # (Auto) 1.2, Monocytes # (Auto) 1.4H, Eosinophils # (Auto) 1.0H, Basophils # (Auto) 0.1 04/29/20 04:57: Sodium Level 140, Potassium Level 4.2, Chloride Level 109H, Carbon Dioxide Level 24, Anion Gap 7, Blood Urea Nitrogen 12, Creatinine 1.24, Estimat Glomerular Filtration Rate 59, BUN/Creatinine Ratio 10, Glucose Level 89, Calcium Level 8.3L, Magnesium Level 1.9 A/P: Assessment: Marked weakness and wgt loss due to prolonged hospitalizations for sepsis in February, March, and Apr 2020 Nausea and vomiting and poor oral intake - improved Orthostatic symptoms/hypotension - improved PAF, s/p ablation by Dr Rodriguez at [facility] in 2018 or 2019; pt reports to have had recurrence in February 2020 OAC with Eliquis Mild CAD consisting of mild to mod dz of the LAD that has been unchanged on card caths of 2014, 2017, and 2018 (last in Sep [address] Wilder to eval minimal troponin elev) Echo of 03/31/20: LVEF 55-65%, mod MR, PASP 35-40 mmHg Mild troponin elevation w/o evidence of ACS: type 2 HI (likely due to transient hypotension due to meds and low oral intake) Plan: * Advised increased oral intake and improved nutrition. Meanwhile, iv fluids * Diltiazem d/c'd (because of h/o intermittently low bp and postural symptoms) * Continued reduced amiodarone (pt reports nausea after current dose of amiodarone) - improved with reduced dose * PT/OT * Monitor labs * Continue OAC with Eliquis Clinical Quality Measures AMI/AHF: ASA po Prior to arrival: GEOVANNA Mabry Apr 29, 2020 08:41
[2020-04-29] MEDS: AMIODARONE 200 MG (CORDARONE) TAB PO SCH (09:35)
[2020-04-29] MEDS: APIXABAN 5 MG (ELIQUIS) TABLET PO SCH ×2 (09:35→22:23)
--- NOTE | 2020-04-29 10:17 | Progress Note - Hospitalist ---
Subjective HPI/CC On Admission Date Seen by Provider: Apr 29, 2020 Time Seen by Provider: 10:00 This is a 59-year-old white male who was recently discharged from [facility] after an extended hospital stay for atrial fibrillation and deconditioning. The patient had gone AMA even though he had been approved for [facility]. He was frustrated by his weakness and thought he could make it at home. He then began developing chest pain and presented to our emergency room with an elevated troponin. At The time of my interview this morning the patient is rather Morose but has no complaints of chest pain. He has diffuse tremors that he said he's had since he was on the ventilator. He said that he did not take advantage of a opportunity to go to rehabilitation and strengthening and he regrets it now. He complains of dizziness with standing, loss of apetitte and nausea without vomiting. He notes he is afraid to go to sleep. Subjective/Events-last exam Changed Pt to inpatient for Type II SC Has borderline personality disorder [facility] to there No more nausea and vomiting Had some pre-syncopal episodes but now he is much better Review of Systems General: Fatigue, Malaise Neurological: Weakness Objective Exam Vital Signs Vital Signs Date Time Temp Pulse Resp B/P (MAP) Pulse Ox O2 Delivery O2 Flow Rate FiO2 04/29/20 19:53 37.4 92 18 121/84 (96) 95 Room Air Capillary Refill : Less Than 3 Seconds General Appearance: No Apparent Distress, WD/WN, Chronically ill Respiratory: Chest Non Tender, Lungs Clear, Normal Breath Sounds, No Accessory Muscle Use, No Respiratory Distress Cardiovascular: Regular Rate, Rhythm, No Edema, No Gallop, No JVD, No Murmur, Normal Peripheral Pulses Neurologic/Psychiatric: Alert, Oriented x3, No Motor/Sensory Deficits, Normal Mood/Affect Results/Procedures Lab Laboratory Tests 04/29/20 04:37 04/29/20 04:57 Patient resulted labs reviewed. Assessment/Plan Assessment and Plan Assess & Plan/Chief Complaint Assessment: Chest pain Type 2 SC Borderline personality disorder Malingering Severe debility Depression Nausea and vomiting Plan: Supportive care Appreciate cardiology Monitor nausea and vomiting Needs jail placement Diagnosis/Problems Diagnosis/Problems (1) Near syncope Status: Acute (2) Hypertension (3) Hyperlipidemia (4) Atrial fibrillation Status: Chronic (5) Elevated troponin Status: Acute Clinical Quality Measures AMI/AHF: ASA po Prior to arrival: No DVT/VTE Risk/Contraindication: Risk Factor Score Per Nursin RFS Level Per Nursing on Admit: 4+=Very High JUAN MANUEL EVANS DO Apr 29, 2020 10:17
--- NOTE | 2020-04-29 10:56 | Physical Therapy Evaluation ---
PT Evaluation-General Medical Diagnosis Admission Date Apr 27, 2020 at 11:23 Medical Diagnosis: afib, deconditioning Onset Date: Apr 27, 2020 Therapy Diagnosis Therapy Diagnosis: impaired mobility, strength, endurance Height/Weight Height (Feet): 6 Height (Inches): 0 Weight (Pounds): 224 Weight (Ounces): 0 Precautions Precautions/Isolations: Fall Prevention, Standard Precautions Weight Bear Status Right Lower Extremity: Right Weight Bearing/Tolerated Left Lower Extremity: Left Weight Bearing/Tolerated Referral Physician: Leanne Reason for Referral: Evaluation/Treatment Medical History Pertinent Medical History: Atrial Fib, Arthritis, Diverticulitis, HTN Additional Medical History Past Medical History Surgeries: Appendectomy, Bowel Surgery Respiratory: Pneumonia, Pulmonary Embolism Cardiac: Atrial Fibrillation, High Cholesterol, Hypertension, Irregular Heartbeat Neurological: Headaches /Migraines Reproductive: No Sexually Transmitted Disease: Yes (Hep C: treated) HIV/AIDS: No Genitourinary: Prostate Problems Gastrointestinal: Diverticulosis, Hemorrhoids Musculoskeletal: Arthritis, Chronic Back Pain Endocrine: Hypothyroidsim Loss of Vision: Denies Hearing Impairment: Denies Cancer: Colon Did You Recieve Any Treatments: Yes What Type of Treatment Did You: Surgical Intervention Psychosocial: Anxiety, Depression Reviewed History: Yes Social History Home: Single Level Current Living Status: Alone Entry Into Home: Stairs Without Railing PT Steps Into Home: 1 Prior Prior Level of Function SCALE: Activities may be completed with or without assistive devices. 7-Tysiqrcpma-augspvr completes the activity by him/herself with no assistance from a helper. 5-Set-up or Clean-up Assistance-helper sets up or cleans up; patient completes activity. Tuthill assists only prior to or following the activity. 4-Supervision or Touching Assistance-helper provides verbal cues and/or touching/steadying and/or contact guard assistance as patient completes activity. Assistance may be provided throughout the activity or intermittently. 3-Partial/Moderate Assistance-helper does LESS THAN HALF the effort. Tuthill lifts, holds or supports trunk or limbs, but provides less than half the effort. 2-Substantial/Maximal Assistance-helper does MORE THAN HALF the effort. Tuthill lifts or holds trunk or limbs and provides more than half the effort. 7-Fqynocgiz-pctyid does ALL the effort. Patient does none of the effort to complete the activity. Or, the assistance of 2 or more helpers is required for the patient to complete the activity. If activity was not attempted, code reason: 7-Patient Refused. 9-Not Applicable-not attempted and the patient did not perform the activity before the current illness, exacerbation or injury. 10-Not Attempted due to Environmental Limitations-(lack of equipment, weather restraints, etc.). 88-Not Attempted due to Medical Conditions or Safety Concerns. Bed Mobility: 6 Transfers (B,C,W/C): 6 Gait: 6 Stairs: 6 Indoor Mobility (Ambulation): Independent Stairs: Independent PT Evaluation-Current Subjective Patient sitting on side of bed pre tx, agrees to PT, would like to get up and walk, has unrated pain in both shoulders. Pt/Family Goals "to get stronger" Objective Patient Orientation: Person, Place, Situation Attachments: IV ROM/Strength ROM Lower Extremities WNL Strength Lower Extremities LLE (hip flexion 1/5, knee flexion 2/5, knee extension 3/5, dorsiflexion 0/5), RLE (hip flexion 1/5, knee flexion 2/5, knee extension 3/5, dorsiflexion 0/5) Sensory Hearing: Functional Sensation Right Lower Extremit: Impaired Sensation Left Lower Extremity: Impaired Sensation Lower Extremities intact light touch in both legs but seems decreased from about mid calf down. Transfers Sit to Stand (QC): 4 Chair/Btj-cm-Gygyd Xfer(QC): 4 SBA, cues for safety and direction Gait Does the Patient Walk?: Yes Mode of Locomotion: Walk Anticipated Mode of Locomotion: Walk Walk 10 feet (QC): 4 Walk 50 ft with 2 Turns(QC): 4 Distance: 100' Gait Assistive Device: FWW Comments/Gait Description Slow ambulation, cues for direction, intermittent tremors in arms and legs Balance Sitting Static: Normal Sitting Dynamic: Normal Standing Static: Good Standing Dynamic: Fair Treatment BLE seated exercises x20 (AP, LAQ) Assessment/Needs Patient has impaired mobility, strength, endurance. She is very shaky with ambulation. He was able to dorsiflex during ambulation for heel strike but not able to dorsiflex during strength testing, leg strength seems like it is more than during MMT since he was able to ambulate with SBA. Rehab Potential: Fair PT Vessel Captain Goals Halfway Goals PT Halfway Goals Time Frame: May 06, 2020 Roll Left & Right (QC): 6 Sit to Lying (QC): 6 Lying-Sitting on Side/Bed(QC): 6 Sit to Stand (QC): 5 Chair/Paz-nb-Dlyjs Xfer(QC): 5 Walk 10 feet (QC): 5 Walk 50ft with 2 Turns (QC): 5 Walk 150 ft (QC): 5 PT Plan Problem List Problem List: Activity Tolerance, Functional Strength, Safety, Balance, Gait, Transfer Treatment/Plan Treatment Plan: Continue Plan of Care Treatment Plan: Education, Functional Activity Vanessa, Functional Strength, Gait, Safety, Therapeutic Exercise, Transfers Treatment Duration: May 06, 2020 Frequency: 6 times per week Estimated Hrs Per Day: .25 hour per day Patient and/or Family Agrees t: Yes Safety Risks/Education Patient Education: Gait Training, Transfer Techniques, Correct Positioning, Safety Issues Teaching Recipient: Patient Teaching Methods: Demonstration, Discussion Response to Teaching: Reinforcement Needed Discharge Recommendations Plan Patient will perform bed mobility and transfer training, balance and endurance training, functional strengthening, stair training, gait training, and education, to improve functional mobility and independence at home. Therapy Discharge Recommendati: Scheduled Assistance, Other, See Comments (NH), Home & Family Time/GCodes Time In: 1020 Time Out: 1040 Total Billed Treatment Time: 20 Total Billed Treatment 1 visit ALYSHA Bueno' EVAN HAWKINS PT Apr 29, 2020 10:55
--- NOTE | 2020-04-29 11:17 | Progress Note - Cardiology ---
Cardiology SOAP Progress Note Subjective: Dizziness and weakness better but not resolved No cp or palp or syncope or shortness of breath No focal weakness No n/v today. Had it yesterday Objective: I&O/Vital Signs 04/29/20 04/29/20 04/29/20 04/29/20 00:00 01:00 03:42 07:00 Temp 37.4 37.2 Pulse 83 81 81 83 Resp 16 18 B/P (MAP) 109/69 (82) 125/78 (94) Pulse Ox 96 97 O2 Delivery Room Air Room Air 04/29/20 04/29/20 08:00 08:00 Temp 36.3 Pulse 81 Resp 17 B/P (MAP) 120/73 (89) Pulse Ox 95 O2 Delivery Room Air Room Air 04/29/20 00:00 Intake Total 990 ml Output Total 400 ml Balance 590 ml Weight (Pounds): 224 Weight (Ounces): 0 Weight (Calculated Kilograms): 101.410411 Constitutional: AAO x 3, well-developed, well-nourished, other (appears somewhat anxious and nervous, shaking both legs) Respiratory: No accessory muscle use, No respiratory distress; other (fair to good bilat air entry, coarse basal crackles on the L) Cardiovascular: regular rate-rhythm, S1 and S2, systolic murmur (soft GRISELDA at card base) Gastrointestional: No tender; soft; No guarding, No rebound; audible bowel sounds Extremities: No clubbing, No cyanosis, No significant edema Neurologic/Psychiatric: oriented x 3, other (moves all limbs equally) Skin: warm/dry; No cyanosis, No cool, No diaphoresis, No rash on exposed areas, No ulcerations on exposed areas Results/Procedures: Labs Laboratory Tests 04/29/20 04:37: White Blood Count 10.3, Red Blood Count 3.74L, Hemoglobin 9.9L, Hematocrit 31L, Mean Corpuscular Volume 82, Mean Corpuscular Hemoglobin 27, Mean Corpuscular Hemoglobin Concent 32, Red Cell Distribution Width 15.0H, Platelet Count 498H, Mean Platelet Volume 10.6H, Neutrophils (%) (Auto) 66, Lymphocytes (%) (Auto) 11L, Monocytes (%) (Auto) 13H, Eosinophils (%) (Auto) 9, Basophils (%) (Auto) 1, Neutrophils # (Auto) 6.8, Lymphocytes # (Auto) 1.2, Monocytes # (Auto) 1.4H, Eosinophils # (Auto) 1.0H, Basophils # (Auto) 0.1 04/29/20 04:57: Sodium Level 140, Potassium Level 4.2, Chloride Level 109H, Carbon Dioxide Level 24, Anion Gap 7, Blood Urea Nitrogen 12, Creatinine 1.24, Estimat Glomerular Filtration Rate 59, BUN/Creatinine Ratio 10, Glucose Level 89, Calcium Level 8.3L, Magnesium Level 1.9 A/P: Assessment: Marked weakness and wgt loss due to prolonged hospitalizations for sepsis in February, March, and Apr 2020 Nausea and vomiting and poor oral intake - improved Orthostatic symptoms/hypotension - improved PAF, s/p ablation by Dr Rodriguez at [facility] in 2018 or 2019; pt reports to have had recurrence in February 2020 OAC with Eliquis Mild CAD consisting of mild to mod dz of the LAD that has been unchanged on card caths of 2014, 2017, and 2018 (last in Sep [address] Wilder to eval minimal troponin elev) Echo of 03/31/20: LVEF 55-65%, mod MR, PASP 35-40 mmHg Mild troponin elevation w/o evidence of ACS: type 2 [place] (likely due to transient hypotension due to meds and low oral intake) Plan: * Advised increased oral intake and improved nutrition. Meanwhile, iv fluids * Diltiazem d/c'd (because of h/o intermittently low bp and postural symptoms) * Rreduced amiodarone (pt reports nausea after current dose of amiodarone) - improved with reduced dose * PT/OT * Monitor labs * Continue OAC with Eliquis Clinical Quality Measures AMI/AHF: ASA po Prior to arrival: KAYLAN Kelly MD FACP [facility] CCDS Apr 29, 2020 11:17
--- NOTE | 2020-04-29 11:33 | NUR ---
CM/SS: Visited with pt as per consult for thought of wanted to end his life Plan: Undetermined at this time - pt is from home with home community based services in place for 42 hours per week Summary: Pt reports that he is back as he recently left . Pt reports he has been in the hospital the last two months for various things related to his heart and his physical condition. Pt reports he left AMA and then knew that was not a good idea, so he came to the [facility] and was transferred here. Pt seems motivated to get to feeling better and walking more. He reports he is just week. Discuss with pt his thoughts and how he was doing mentally. Expressed that was concerned about his thoughts and his talking about wanting to end his life. He reports he just said that as he is frustrated with everything, but not like that. He reports if he can go to rehab that would be great. He does report that he has been involved with mental health and he went but quit going. Pt is unable to say why he quit going, only to say that he did not like talking with the people all the time. He reports it was helpful at times. Pt is not having any feelings of wanting to harm himself at this time. However pt does have a history of mental health. Discussed the AMA leaving from . He reports if he had it to do over again, he would of been discharged when they said, not when was ready to go. Pt is encouraged to remain in the hospital until a physician says he can leave. Pt continues to want to know about Inpatient Rehab, so that he can get stronger. This worker will follow up.
[2020-04-29 12:00] VITALS: BP 145/84
--- NOTE | 2020-04-29 12:16 | NUR ---
CM/SS: Telephone Call from [place] - [phone] - [facility] at [facility] - Wanting to update this worker on the status of this pt. She reports that pt has been at left AM and was to go to a skilled unit at [facility] - pt determined he did not want to go there or [place]. Once pt left AM he was not a candidate for admission there at [facility]. Pt also had issues with saying things that were inappropriate and touching a nursing staff inappropriate as well. She did not have all of the details related to this incident. Pt does have 42 hours of home community based services approved at this time. This worker will follow up with [facility] when she has more information.
[2020-04-29] MEDS: ONDANSETRON 4 MG/2 ML (SDV) Z0FRAN IV PRN (13:03)
--- NOTE | 2020-04-29 13:27 | Occupational Therapy Eval ---
OT Evaluation-General/PLF Medical Diagnosis Admission Date Apr 27, 2020 at 11:23 Medical Diagnosis: afib, deconditioning Onset Date: Apr 27, 2020 Therapy Diagnosis Therapy Diagnosis: decr funct mobility Height/Weight Height (Feet): 6 Height (Inches): 0 Weight (Pounds): 224 Weight (Ounces): 0 Precautions Precautions/Isolations: Fall Prevention, Standard Precautions Referral Physician: Leanne Referral Reason: Evaluation/Treatment Medical History Pertinent Medical History: Atrial Fib, Arthritis, CAD, Diverticulitis, HTN, Hypothroidism Additional Medical History Cardiac ablation. Bowel surgery (colon CA). Pulmonary embolism. Headache/migraine. Chronic back pain. Anxiety, depression. Current History Admitted with chest pain, weakness. Recent discharge from long stay at [facility]. Tremors since hospitalized, per pt report. Social History Home: Single Level Current Living Status: Alone Entry Into Home: Stairs Without Railing Steps Into Home: 1 ADL-Prior Level of Function SCALE: Activities may be completed with or without assistive devices. 3-Zgentultui-zllieuc completes the activity by him/herself with no assistance from a helper. 5-Set-up or Clean-up Assistance-helper sets up or cleans up; patient completes activity. [place] assists only prior to or following the activity. 4-Supervision or Touching Assistance-helper provides verbal cues and/or touching/steadying and/or contact guard assistance as patient completes activity. Assistance may be provided throughout the activity or intermittently. 3-Partial/Moderate Assistance-helper does LESS THAN HALF the effort. [place] lifts, holds or supports trunk or limbs, but provides less than half the effort. 2-Substantial/Maximal Assistance-helper does MORE THAN HALF the effort. [place] lifts or holds trunk or limbs and provides more than half the effort. 6-Inhhtfjor-zoebid does ALL the effort. Patient does none of the effort to complete the activity. Or, the assistance of 2 or more helpers is required for the patient to complete the activity. If activity was not attempted, code reason: 7-Patient Refused. 9-Not Applicable-not attempted and the patient did not perform the activity before the current illness, exacerbation or injury. 10-Not Attempted due to Environmental Limitations-(lack of equipment, weather restraints, etc.). 88-Not Attempted due to Medical Conditions or Safety Concerns. ADL PLOF Comments Pt reported that he was previously able to do everything for himself. He is disabled. OT Current Status Subjective Pt seen in room, up in bed, looking at phone. Pain reported 0/10. Appearance Alert. Cooperative but "dismissed" OT by returning to his phone. Current Glasses/Contacts: Yes Upper Extremity ROM WFL bilat Upper Extremity Coordination Functional per observation and pt report Upper Extremity Strength 5/5 bilat Pt reported both left and right handed. ADL-Treatment ADL-Current Pt reported that he has no problems with his arms, just his legs. He said that he has no difficulties putting on his socks or managing his clothing when toileting and is able to feed himself. He "just needs to get my legs stronger" and said that he did not need OT. Education OT Patient Education: Purpose of tx/functional activities, Rehab process Teaching Recipient: Patient Teaching Methods: Discussion Response to Teaching: Verbalize Understanding OT Lab Intern Goals Lab Intern Goals 1=Demonstrate adherence to instructed precautions during ADL tasks. 2=Patient will verbalize/demonstrate understanding of assistive devices/modifications for ADL. 3=Patient will improve strength/tolerance for activity to enable patient to p erform ADL's. OT Education/Plan Problem List/Assessment Assessment: Dependent Transfers Pt reported that he does not need help with ADLs and does not need OT. Bilat UE strength 5/5. DC OT Discharge Recommendations Plan/Recommendations: Discontinue OT Treatment Plan/Plan of Care Treatment,Training & Education: No Patient would benefit from OT for education, treatment and training to promote independence in ADL's, mobility, safety and/or upper extremity function for ADL's. Plan of Care: OTHER (DC OT) Treatment Duration: Apr 29, 2020 Frequency: 1 time per week Estimated Hrs Per Day: Other (DC) Agreement: Yes Rehab Potential: Fair Time/GCodes Start Time: 13:05 Stop Time: 13:13 Total Time Billed (hr/min): 8 Billed Treatment Time visit, OT da low intensity 8 minutes SARIAH MASTERS OT Apr 29, 2020 13:27
--- NOTE | 2020-04-29 14:12 | NUR ---
Patient has had several negatvie tests will remove MRSA isolation. Spoke with Balwinder CARO.
--- NOTE | 2020-04-29 14:25 | NUR ---
Pastoral care visit, pt waved [facility] out of room and stated he did not want to visit with any [facility].
--- NOTE | 2020-04-29 14:29 | NUR ---
IRF Evaluation Determination: Denied Explanation: Reviewer very familiar with patient and his situation as he has been referred on more than one occasion. The timeline is as follows... Initial referral made by [facility], patient was denied by insurance for admission to ARU, stating his needs would best be met a SNF level of care. Patient eventually discharged from to home. Patient admitted to [facility] and re-assessed for admission to ARU. He was denied as he was considered 'too functional' and it was recommended to discharge home, which did occur. Patient re-admitted to and was referred a third time. Patient was denied as he was not expected to actively participate in 3 hours of therapy per day, 5 days a week. Additionally, insurance recently denied admission. According to CATRINA GIRON, during his most recent visit, several referrals were made to various ARU's, which all resulted in a denial from the facility and/or denial by insurance. BREE notified of above information. Thank you for this referral.
[2020-04-29 15:30] VITALS: BP 111/70
[2020-04-29] MEDS ORDERED: DICLOFENAC 1% GEL 100 GM (VOLTAREN) TUBE TOP PRN (17:15)
[2020-04-29 19:53] VITALS: BP 121/84
[2020-04-29] MEDS: DOCUSATE SODIUM 100 MG (COLACE) CAP PO SCH (22:23)
[2020-04-29] MEDS: ALPRAZolam 1 MG (XANAX) TAB PO PRN (22:23)
[2020-04-30 00:05] VITALS: BP 115/67
[2020-04-30] MEDS: oxyCODONE/APAP 10/325MG (PERCOCET 10) TABLET PO PRN (03:45)
[2020-04-30 04:40] VITALS: BP 120/78
[2020-04-30 05:21] LABS: BASOPHILS % (AUTO) 0 % (0-10); EOSINOPHILS # (AUTO) 0.7 10^3/uL (0.0-0.3); EOSINOPHILS % (AUTO) 6 % (0-10); HEMATOCRIT 31 % (40-54); HEMOGLOBIN 10.1 G/DL (13.3-17.7); LYMPHOCYTES # (AUTO) 1.4 X 10^3 (1.0-4.0); LYMPHOCYTES % (AUTO) 14 % (12-44); MEAN CORPUSCULAR HEMOGLOBIN 27 PG (25-34); MEAN CORPUSCULAR HGB CONC 33 G/DL (32-36); MEAN CORPUSCULAR VOLUME 82 FL (80-99); MEAN PLATELET VOLUME 10.1 FL (7.4-10.4); MONOCYTES # (AUTO) 1.6 X 10^3 (0.0-1.0); MONOCYTES % (AUTO) 16 % (0-12); NEUTROPHILS # (AUTO) 6.7 X 10^3 (1.8-7.8); NEUTROPHILS % (AUTO) 64 % (42-75); PLATELET COUNT 500 10^3/uL (130-400); RED CELL DISTRIBUTION WIDTH 15.2 % (10.0-14.5); WHITE BLOOD COUNT 10.5 10^3/uL (4.3-11.0)
[2020-04-30 05:38] LABS: ALBUMIN 3.4 GM/DL (3.2-4.5); CHLORIDE 106 MMOL/L (98-107); SODIUM 138 MMOL/L (135-145)
[2020-04-30 05:39] LABS: CALCIUM 8.4 MG/DL (8.5-10.1)
[2020-04-30 05:40] LABS: GLUCOSE 117 MG/DL (70-105)
[2020-04-30 05:42] LABS: BILIRUBIN,TOTAL 0.3 MG/DL (0.1-1.0); CARBON DIOXIDE 24 MMOL/L (21-32)
[2020-04-30 05:44] LABS: ALKALINE PHOSPHATASE 98 U/L (40-136); CREATININE SERUM 1.17 MG/DL (0.60-1.30); GFR ESTIMATED > 60
[2020-04-30 05:45] LABS: BUN/CREATININE RATIO 9
[2020-04-30 05:47] LABS: ALANINE AMINOTRANSFERASE 12 U/L (0-55)
[2020-04-30] MEDS: METOCLOPRAMIDE INJ 10 MG/2 ML (REGLAN) IVP SCH ×5 (07:45→20:05)
[2020-04-30] MEDS: LEVOTHYROXINE 50 MCG (LEVOTHROID) TAB PO SCH (07:51)
[2020-04-30] MEDS: KCL 10 MEQ TAB (MICRO K) PO SCH (07:51)
[2020-04-30 08:15] VITALS: BP 122/71
[2020-04-30] MEDS: DOCUSATE SODIUM 100 MG (COLACE) CAP PO SCH ×2 (08:43→20:06)
[2020-04-30] MEDS: lisINopril 10 MG (PRINIVIL) TABLET PO SCH (08:43)
[2020-04-30] MEDS: APIXABAN 5 MG (ELIQUIS) TABLET PO SCH ×4 (08:44→20:06)
[2020-04-30] MEDS: AMIODARONE 200 MG (CORDARONE) TAB PO SCH (08:44)
[2020-04-30] MEDS: NS IV 1000 ML 1,000 ML IV SCH ×2 (08:46→18:14)
--- NOTE | 2020-04-30 09:47 | Physical Therapy Daily Note ---
PT Daily Note-Current Subjective Patient is very agitated and initially declined PT. Reluctantly agrees after much encouragement. Pain Numeric Pain Scale: 5-Moderate Pain Location: Soft Tissue Location Body Site: Generalized Pain Description: Chronic Mental Status Patient Orientation: Person, Time, Situation Attachments: IV Transfers SCALE: Activities may be completed with or without assistive devices. 3-Izlbmffrlo-ykyvsjl completes the activity by him/herself with no assistance from a helper. 5-Set-up or Clean-up Assistance-helper sets up or cleans up; patient completes activity. [place] assists only prior to or following the activity. 4-Supervision or Touching Assistance-helper provides verbal cues and/or touching/steadying and/or contact guard assistance as patient completes activity. Assistance may be provided throughout the activity or intermittently. 3-Partial/Moderate Assistance-helper does LESS THAN HALF the effort. [place] lifts, holds or supports trunk or limbs, but provides less than half the effort. 2-Substantial/Maximal Assistance-helper does MORE THAN HALF the effort. [place] lifts or holds trunk or limbs and provides more than half the effort. 8-Miptmjoce-jveuhy does ALL the effort. Patient does none of the effort to complete the activity. Or, the assistance of 2 or more helpers is required for the patient to complete the activity. If activity was not attempted, code reason: 7-Patient Refused. 9-Not Applicable-not attempted and the patient did not perform the activity before the current illness, exacerbation or injury. 10-Not Attempted due to Environmental Limitations-(lack of equipment, weather restraints, etc.). 88-Not Attempted due to Medical Conditions or Safety Concerns. Sit to Stand (QC): 6 Weight Bearing Right Lower Extremity: Right Weight Bearing/Tolerated Left Lower Extremity: Left Weight Bearing/Tolerated Gait Training Does the Patient Walk?: Yes Distance: 300' Walk 10 feet (QC): 6 Walk 50 ft with 2 Turns(QC): 6 Walk 150 ft (QC): 6 Gait Assistive Device: FWW safe and functional with no deviation Exercises Seated Therapy Exercises: Ankle pumps, Long arc quads, Hip flexion Seated Reps: 12 Assessment Patient ceases treatment and remains up in recliner. Patient demonstrates good strength and functional mobility. PT Sealing Machine Operator Goals Mcc Goals PT Mcc Goals Time Frame: May 06, 2020 Roll Left & Right (QC): 6 Sit to Lying (QC): 6 Lying-Sitting on Side/Bed(QC): 6 Sit to Stand (QC): 5 Chair/Dfn-ou-Vpgaf Xfer(QC): 5 Walk 10 feet (QC): 5 Walk 50ft with 2 Turns (QC): 5 Walk 150 ft (QC): 5 PT Plan Treatment/Plan Treatment Plan: Continue Plan of Care Treatment Plan: Education, Functional Activity Vanessa, Functional Strength, Gait, Safety, Therapeutic Exercise, Transfers Treatment Duration: May 06, 2020 Frequency: 6 times per week Estimated Hrs Per Day: .25 hour per day Patient and/or Family Agrees t: Yes Time/GCodes Time In: 930 Time Out: 941 Total Billed Treatment Time: 11 Total Billed Treatment 1 visit FA 11 min RAMIRO HOUSTON PT Apr 30, 2020 09:47
--- NOTE | 2020-04-30 09:59 | Progress Note - Hospitalist ---
Subjective HPI/CC On Admission Date Seen by Provider: Apr 30, 2020 Time Seen by Provider: 10:00 This is a 59-year-old white male who was recently discharged from [facility] after an extended hospital stay for atrial fibrillation and deconditioning. The patient had gone AMA even though he had been approved for pen[facility]ent[facility]. He was frustrated by his weakness and thought he could make it at home. He then began developing chest pain and presented to our emergency room with an elevated troponin. At The time of my interview this morning the patient is rather Mor[place] but has no complaints of chest pain. He has diffuse tremors that he said he's had since he was on the ventilator. He said that he did not take advantage of a opportunity to go to rehabilitation and strengthening and he regrets it now. He complains of dizziness with standing, loss of apetitte and nausea without vomiting. He notes he is afraid to go to sleep. Subjective/Events-last exam PT and OT ordered Hgb 10.1 No more syncopal episodes Borderline personality and malingering noted Very difficult to manage this patient due to frequent readmissions and leaving AMA from the fdc Review of Systems General: Fatigue, Malaise Neurological: Weakness Objective Exam Vital Signs Vital Signs Date Time Temp Pulse Resp B/P (MAP) Pulse Ox O2 Delivery O2 Flow Rate FiO2 04/30/20 19:00 84 04/30/20 15:30 37.2 18 139/68 (91) 92 Room Air Capillary Refill : Less Than 3 SecondsLess Than 3 Seconds General Appearance: No Apparent Distress, WD/WN Respiratory: Chest Non Tender, Lungs Clear, Normal Breath Sounds, No Accessory Muscle Use, No Respiratory Distress Cardiovascular: Regular Rate, Rhythm, No Edema, No Gallop, No JVD, No Murmur, Normal Peripheral Pulses Neurologic/Psychiatric: Alert, Oriented x3, No Motor/Sensory Deficits, Normal Mood/Affect Results/Procedures Lab Laboratory Tests 04/30/20 04:55 Patient resulted labs reviewed. Assessment/Plan Assessment and Plan Assess & Plan/Chief Complaint Assessment: Chest pain Type 2 OR Borderline personality disorder Malingering Severe debility Depression Nausea and vomiting Plan: Supportive care Appreciate cardiology Monitor nausea and vomiting Needs fdc placement 04/30/20: PT/OT Monitor hemoglobin Disposition per social work Diagnosis/Problems Diagnosis/Problems (1) Near syncope Status: Acute (2) Hypertension (3) Hyperlipidemia (4) Atrial fibrillation Status: Chronic (5) Elevated troponin Status: Acute Clinical Quality Measures AMI/AHF: ASA po Prior to arrival: No DVT/VTE Risk/Contraindication: Risk Factor Score Per Nursin RFS Level Per Nursing on Admit: 4+=Very High JUAN MANUEL EVANS DO Apr 30, 2020 09:59
--- NOTE | 2020-04-30 11:59 | NUR ---
CM/SS: Visited with pt as to plan for discharge - Pt reports he WILL NOT go to a nursing facility. Plan: Undetermined at this time. - Pt has been denied inpatient rehabilitation services DME: Front Wheeled Walker may be needed Summary: Pt is in bed at the time of the visit. Pt reports he was able to walk some this morning. He reports his arms still weak and legs are getting stronger. Pt reports he wanted to know about Rehab. This worker indicates to pt that he was denied for Rehab based on his [facility] Insurance. He would be able to go to a skilled facility, however pt is adamant he will NOT be going to a skilled/shelter for placement. He is just wanting to get stronger and go home. Pt reports he will need a walker. Pt was offered a walker on his hospital stay last time, and refused. He does report that he does not have one. This worker does attempt to close the door for privacy and pt request for it to be opened. Pt is encouraged to get stronger and walk when he feels like it. This worker will follow up.
--- NOTE | 2020-04-30 13:07 | NUR ---
"RD ASSESSMENT PMHx: pneumonia; afib; hypercholesterolemia; HTN; hepatitis-C; diverticulosis; hypothyroidism PT INTERACTION: Pt was awake and semi-pleasant during nutrition assessment. Pt states current appetite is alright. Note avg PO intake 50-75% x2d, per chart review. Pt states following a regular diet at home, and he has no issues with chewing/swallowing food, despite having no teeth. Pt states some recent issues with nausea, vomiting, constipation, and diarrhea. Note last BM was 04/29 and pt currently on bowel regimen of colace BID, per chart review. Pt states unsure of recent wt changes. Note recent 20# wt loss x6mon, per chart review. ABNORMAL NUTRITION-RELATED LAB VALUES LOW: Ca 8.4; Pro 6.0 HIGH: glu 117 Est. kcal needs: 1375 kcal | 15 kcal/kg Est. Pro needs: 73 g Pro | 0.8 g Pro/kg PES STATEMENT: Inadequate oral intake (NI-2.1) related to loss of appetite | nausea | vomiting | constipation | diarrhea as evidenced by pt interview | avg PO intake 50-75% x2d INTERVENTION: Continue with current diet order of Regular diet. Pt may benefit from nutrition supplementation if PO intake declines. Will continue to follow and reassess as pt needs, intake, and status change. MONITOR/EVALUATE: PO Intake; Plan of Care; Hydration Status; Weight Status; Lab Values Manohar Hauser, MS, RD, LD"
--- NOTE | 2020-04-30 14:04 | Cardiology Progress Note ---
Cardiology SOAP Progress Note Subjective: Denies any new cardiac complaints. Complains of fatigue. Objective: I&O/Vital Signs 04/30/20 04/30/20 04/30/20 04/30/20 04:40 06:49 08:00 08:15 Temp 37.4 36.5 Pulse 85 76 90 Resp 18 20 B/P (MAP) 120/78 (92) 122/71 (88) Pulse Ox 94 98 O2 Delivery Room Air Room Air Room Air 04/30/20 12:43 Pulse 83 04/30/20 00:00 Intake Total 1055 ml Output Total 1000 ml Balance 55 ml Weight (Pounds): 224 Weight (Ounces): 0 Weight (Calculated Kilograms): 101.045780 Constitutional: AAO x 3, well-developed, well-nourished, other (appears somewhat anxious and nervous, shaking both legs) Respiratory: No accessory muscle use, No respiratory distress; other (fair to good bilat air entry, coarse basal crackles on the L) Cardiovascular: regular rate-rhythm, S1 and S2, systolic murmur (soft GRISELDA at card base) Gastrointestional: No tender; soft; No guarding, No rebound; audible bowel sounds Extremities: No clubbing, No cyanosis, No significant edema Neurologic/Psychiatric: oriented x 3, other (moves all limbs equally) Skin: warm/dry; No cyanosis, No cool, No diaphoresis, No rash on exposed areas, No ulcerations on exposed areas Results/Procedures: Labs Laboratory Tests 04/30/20 04:55: White Blood Count 10.5, Red Blood Count 3.78L, Hemoglobin 10.1L, Hematocrit 31L, Mean Corpuscular Volume 82, Mean Corpuscular Hemoglobin 27, Mean Corpuscular Hemoglobin Concent 33, Red Cell Distribution Width 15.2H, Platelet Count 500H, Mean Platelet Volume 10.1, Neutrophils (%) (Auto) 64, Lymphocytes (%) (Auto) 14, Monocytes (%) (Auto) 16H, Eosinophils (%) (Auto) 6, Basophils (%) (Auto) 0, Neutrophils # (Auto) 6.7, Lymphocytes # (Auto) 1.4, Monocytes # (Auto) 1.6H, Eosinophils # (Auto) 0.7H, Basophils # (Auto) 0.0, Sodium Level 138, Potassium Level 4.0, Chloride Level 106, Carbon Dioxide Level 24, Anion Gap 8, Blood Urea Nitrogen 11, Creatinine 1.17, Estimat Glomerular Filtration Rate > 60, BUN/Creatinine Ratio 9, Glucose Level 117H, Calcium Level 8.4L, Corrected Calcium 8.9, Total Bilirubin 0.3, Aspartate Amino Transf (AST/SGOT) 12, Alanine Aminotransferase (ALT/SGPT) 12, Alkaline Phosphatase 98, Total Protein 6.0L, Albumin 3.4 A/P: Assessment/Dx: Marked weakness and wgt loss due to prolonged hospitalizations for sepsis in February, March, and Apr 2020 Nausea and vomiting and poor oral intake - improved Orthostatic symptoms/hypotension - improved PAF, s/p ablation by Dr Rodriguez at [facility] in 2018 or 2019; pt reports to have had recurrence in February 2020 OAC with Eliquis Mild CAD consisting of mild to mod dz of the LAD that has been unchanged on card caths of 2014, 2017, and 2018 (last in Sep 2018 to eval minimal troponin elev) Echo of 03/31/20: LVEF 55-65%, mod MR, PASP 35-40 mmHg Mild troponin elevation w/o evidence of ACS: type 2 [place] (likely due to transient hypotension due to meds and low oral intake) Plan: * Advised increased oral intake and improved nutrition. Meanwhile, iv fluids * Diltiazem d/c'd (because of h/o intermittently low bp and postural symptoms) * Reduced amiodarone (pt reports nausea after current dose of amiodarone) - improved with reduced dose * PT/OT * Monitor labs * Continue OAC with Eliquis Thank you for your consultation. Please call me if you have any questions. Michael Wilder MD, FACP, FACC, FSCAI, FHRS, CCDS Interventional Cardiology Cardiac Electrophysiology Vascular Medicine and Endovascular Interventions Clinical Quality Measures AMI/AHF: ASA po Prior to arrival: Kitty Zapata MD Apr 30, 2020 14:04
[2020-04-30 15:30] VITALS: BP 139/68
--- NOTE | 2020-04-30 20:40 | NUR ---
Pt wanted this RN to put a note on his chart about the following: - He is willing to go to a assisted facility that can do rehab but not to an ordinary care home.
[2020-04-30] MEDS: ALPRAZolam 1 MG (XANAX) TAB PO PRN (23:35)
--- NOTE | 2020-05-01 | NUR ---
PT. COMPLAINING OF CHEST PAIN. VITAL SIGNS TAKEN, AND PRN EKG DONE- SINUS RHYTHM WILL CONTINUE TO MONITOR. 2299 - pt complaining of chest pain, rated 6/10, not radiating. - Vital signs taken : BP = 122/78; HR=85; RR = 20; Temp = 37.4C; O2 Sat = 95% RA - EKG Done - Sinus rhythm, no changes from previous EKG. - Offered pain pills and Xanax, pt refused both medications. - Will continue to monitor 2334 - pt called this RN back to the room and pt requested to have the Xanax. Medication administered. Addendum: 05/01/20 at 0402 by ADIEL GONZALEZ RN 2299 - pt complaining of chest pain, rated 6/10, not radiating. - Vital signs taken : BP = 122/78; HR=85; RR = 20; Temp = 37.4C; O2 Sat = 95% RA - EKG Done - Sinus rhythm, no changes from previous EKG.
--- NOTE | 2020-05-01 | NUR ---
2300 - pt complaining of chest pain, rated 6/10, not radiating. - Vital signs taken : BP = 122/78; HR=85; RR = 20; Temp = 37.4C; O2 Sat = 95% RA - EKG Done - Sinus rhythm, no changes from previous EKG. - Offered pain pills and Xanax, pt refused both medications. - Will continue to monitor 2335 - pt called this RN back to the room and pt requested to have the Xanax. Medication administered.
[2020-05-01 00:15] VITALS: BP 133/78
[2020-05-01] MEDS: NS IV 1000 ML 1,000 ML IV SCH ×2 (03:49→13:59)
[2020-05-01 04:25] VITALS: BP 121/74
[2020-05-01 05:48] LABS: BASOPHILS % (AUTO) 0 % (0-10); EOSINOPHILS # (AUTO) 0.7 10^3/uL (0.0-0.3); EOSINOPHILS % (AUTO) 8 % (0-10); HEMATOCRIT 29 % (40-54); HEMOGLOBIN 9.4 G/DL (13.3-17.7); LYMPHOCYTES # (AUTO) 1.4 X 10^3 (1.0-4.0); LYMPHOCYTES % (AUTO) 16 % (12-44); MEAN CORPUSCULAR HEMOGLOBIN 27 PG (25-34); MEAN CORPUSCULAR HGB CONC 33 G/DL (32-36); MEAN CORPUSCULAR VOLUME 82 FL (80-99); MEAN PLATELET VOLUME 10.5 FL (7.4-10.4); MONOCYTES # (AUTO) 1.6 X 10^3 (0.0-1.0); MONOCYTES % (AUTO) 18 % (0-12); NEUTROPHILS # (AUTO) 5.1 X 10^3 (1.8-7.8); NEUTROPHILS % (AUTO) 58 % (42-75); PLATELET COUNT 459 10^3/uL (130-400); RED CELL DISTRIBUTION WIDTH 15.4 % (10.0-14.5); WHITE BLOOD COUNT 8.8 10^3/uL (4.3-11.0)
[2020-05-01] MEDS: METOCLOPRAMIDE INJ 10 MG/2 ML (REGLAN) IVP SCH ×4 (06:01→20:35)
[2020-05-01] MEDS: KCL 10 MEQ TAB (MICRO K) PO SCH (06:01)
[2020-05-01] MEDS: LEVOTHYROXINE 50 MCG (LEVOTHROID) TAB PO SCH (06:01)
[2020-05-01 06:13] LABS: ALANINE AMINOTRANSFERASE 11 U/L (0-55); ALKALINE PHOSPHATASE 91 U/L (40-136); BILIRUBIN,TOTAL 0.4 MG/DL (0.1-1.0); BUN/CREATININE RATIO 10; CALCIUM 8.3 MG/DL (8.5-10.1); CARBON DIOXIDE 23 MMOL/L (21-32); CHLORIDE 110 MMOL/L (98-107); CREATININE SERUM 0.93 MG/DL (0.60-1.30); GFR ESTIMATED > 60; GLUCOSE 81 MG/DL (70-105); POTASSIUM 3.8 MMOL/L (3.6-5.0); SODIUM 141 MMOL/L (135-145); TOTAL PROTEIN 5.4 GM/DL (6.4-8.2)
--- NOTE | 2020-05-01 06:33 | Progress Note - Hospitalist ---
Subjective HPI/CC On Admission Date Seen by Provider: May 01, 2020 Time Seen by Provider: 10:00 This is a 59-year-old white male who was recently discharged from [facility] after an extended hospital stay for atrial fibrillation and deconditioning. The patient had gone AMA even though he had been approved for alf. He was frustrated by his weakness and thought he could make it at home. He then began developing chest pain and presented to our emergency room with an elevated troponin. At The time of my interview this morning the patient is rather Morose but has no complaints of chest pain. He has diffuse tremors that he said he's had since he was on the ventilator. He said that he did not take advantage of a opportunity to go to rehabilitation and strengthening and he regrets it now. He complains of dizziness with standing, loss of apetitte and nausea without vomiting. He notes he is afraid to go to sleep. Subjective/Events-last exam Pt having more and more questions and problems Borderline personality and malingering makes it very difficult to manage Social work consulted for home car Hgb stable at 9.4 Very difficult personality Review of Systems General: Fatigue, Malaise Neurological: Weakness Objective Exam Vital Signs Vital Signs Date Time Temp Pulse Resp B/P (MAP) Pulse Ox O2 Delivery O2 Flow Rate FiO2 05/01/20 20:00 36.8 79 18 122/78 (93) 96 Room Air Capillary Refill : Less Than 3 SecondsLess Than 3 Seconds General Appearance: No Apparent Distress, WD/WN HEENT: PERRL/EOMI, TMs Normal, Normal ENT Inspection, Pharynx Normal, Moist Mucous Membranes Neck: Full Range of Motion, Normal Inspection, Non Tender, Supple, Carotid Bruit Respiratory: Chest Non Tender, Lungs Clear, Normal Breath Sounds, No Accessory Muscle Use, No Respiratory Distress Cardiovascular: Regular Rate, Rhythm, No Edema, No Gallop, No JVD, No Murmur, Normal Peripheral Pulses Gastrointestinal: Normal Bowel Sounds, No Organomegaly, No Pulsatile Mass, Non Tender, Soft Back: Normal Inspection, No CVA Tenderness, No Vertebral Tenderness Extremity: Normal Capillary Refill, Normal Inspection, Normal Range of Motion, Non Tender, No Calf Tenderness, No Pedal Edema Neurologic/Psychiatric: Alert, Oriented x3, No Motor/Sensory Deficits, Normal Mood/Affect Skin: Normal Color, Warm/Dry Lymphatic: No Adenopathy Results/Procedures Lab Laboratory Tests 05/01/20 04:42 Patient resulted labs reviewed. Assessment/Plan Assessment and Plan Assess & Plan/Chief Complaint Assessment: Chest pain Type 2 [place] Borderline personality disorder Malingering Severe debility Depression Nausea and vomiting Plan: Supportive care Appreciate cardiology Monitor nausea and vomiting Needs fci placement 04/30/20: PT/OT Monitor hemoglobin Disposition per social work 05/01/20: Needs a fci or home care Malingering noted Hemoglobin stable at 9.4 Diagnosis/Problems Diagnosis/Problems (1) Near syncope Status: Acute (2) Hypertension (3) Hyperlipidemia (4) Atrial fibrillation Status: Chronic (5) Elevated troponin Status: Acute Clinical Quality Measures AMI/AHF: ASA po Prior to arrival: No DVT/VTE Risk/Contraindication: Risk Factor Score Per Nursin RFS Level Per Nursing on Admit: 4+=Very High JUAN MANUEL EVANS DO May 01, 2020 06:33
[2020-05-01 08:00] VITALS: BP 126/75
[2020-05-01] MEDS: oxyCODONE/APAP 10/325MG (PERCOCET 10) TABLET PO PRN ×2 (08:42→22:38)
[2020-05-01] MEDS: ONDANSETRON 4 MG/2 ML (SDV) Z0FRAN IV PRN (08:42)
[2020-05-01] MEDS: DOCUSATE SODIUM 100 MG (COLACE) CAP PO SCH ×2 (08:42→20:34)
[2020-05-01] MEDS: AMIODARONE 200 MG (CORDARONE) TAB PO SCH (08:42)
[2020-05-01] MEDS: APIXABAN 5 MG (ELIQUIS) TABLET PO SCH ×2 (08:42→20:34)
[2020-05-01] MEDS: lisINopril 10 MG (PRINIVIL) TABLET PO SCH (08:42)
--- NOTE | 2020-05-01 09:55 | Physical Therapy Progress Note ---
Therapy Progress Note Patient refused PT this morning. He says he is nauseated and thinks he overdid it yesterday. Will check back this afternoon. EVAN HAWKINS PT May 01, 2020 09:55
[2020-05-01 12:00] VITALS: BP 131/80
--- NOTE | 2020-05-01 12:30 | NUR ---
WALKED IN POST, WITH WALKER, SHERRI WELL, C/O ABD PAIN, SMALL BROWN STOOL.
--- NOTE | 2020-05-01 14:34 | NUR ---
CM/SS: Visited with pt as to plan for discharge Plan: Undetermined at this time - pt is open today to going to a Skilled Facility Summary: Pt is all over the place as to what he wants to do. Pt is open today to going to the facility in [place]. Pt reports having a rough night and that he is feeling not so good today, but if he needs to go home today he can. This worker talks with pt and reports that a referral can be made to [facility]. Pt request to see this worker again after initial visit, and states at this time he wants to just go home and use his home community based service hours. Pt is approved for 42 hours per week. He feels likes he will be strong enough tomorrow and will work with Physical therapy today and will also need a walker. Referral to [facility]. Information is reviewed, and pt is accepted. The are notified that pt wants to just go home with home community based service hours. They will hold referral if pt were to change his mind. Call from Maliha - Contract Lead with [employer] - letting her know that pt would be going home on tomorrow with walker and using his home community based service hours. Maliha will follow up with pt upon his release from the hospital.
--- NOTE | 2020-05-01 14:45 | Physical Therapy Daily Note ---
PT Daily Note-Current Subjective Patient in bed pre tx, agrees reluctantly to PT, has pain in knees and low back (unrated) Appearance Patient in bed post tx with nurse call, phone, tray, all needs met, telesitter in room. Mental Status Patient Orientation: Person, Place, Situation Attachments: IV Transfers SCALE: Activities may be completed with or without assistive devices. 3-Nwjxfmmdfs-citgoak completes the activity by him/herself with no assistance from a helper. 5-Set-up or Clean-up Assistance-helper sets up or cleans up; patient completes activity. [place] assists only prior to or following the activity. 4-Supervision or Touching Assistance-helper provides verbal cues and/or touching/steadying and/or contact guard assistance as patient completes activity. Assistance may be provided throughout the activity or intermittently. 3-Partial/Moderate Assistance-helper does LESS THAN HALF the effort. [place] lifts, holds or supports trunk or limbs, but provides less than half the effort. 2-Substantial/Maximal Assistance-helper does MORE THAN HALF the effort. [place] lifts or holds trunk or limbs and provides more than half the effort. 5-Yqeouxglx-mysrez does ALL the effort. Patient does none of the effort to complete the activity. Or, the assistance of 2 or more helpers is required for the patient to complete the activity. If activity was not attempted, code reason: 7-Patient Refused. 9-Not Applicable-not attempted and the patient did not perform the activity before the current illness, exacerbation or injury. 10-Not Attempted due to Environmental Limitations-(lack of equipment, weather restraints, etc.). 88-Not Attempted due to Medical Conditions or Safety Concerns. Roll Left & Right (QC): 6 Sit to Lying (QC): 6 Lying to Sitting/Side of Bed(Q: 6 Sit to Stand (QC): 6 Chair/Mwe-ou-Rbuxf Xfer(QC): 4 Weight Bearing Right Lower Extremity: Right Weight Bearing/Tolerated Left Lower Extremity: Left Weight Bearing/Tolerated Gait Training Distance: 800' Walk 10 feet (QC): 4 Walk 50 ft with 2 Turns(QC): 4 Walk 150 ft (QC): 4 Gait Persons Needed: 1 Gait Assistive Device: None SBA, fair speed, patient stays close to wall, some unsteadiness but no LOB, needs to ambulate with a rolling walker. Treatments ambulation Assessment Current Status: Fair Progress improving endurance and balance but needs to use a rolling walker when ambulating PT Human Resources Vice President Goals Snf Goals PT Snf Goals Time Frame: May 06, 2020 Roll Left & Right (QC): 6 Sit to Lying (QC): 6 Lying-Sitting on Side/Bed(QC): 6 Sit to Stand (QC): 5 Chair/Cnu-he-Mdymh Xfer(QC): 5 Walk 10 feet (QC): 5 Walk 50ft with 2 Turns (QC): 5 Walk 150 ft (QC): 5 PT Plan Problem List Problem List: Activity Tolerance, Functional Strength, Safety, Balance, Gait, Transfer Treatment/Plan Treatment Plan: Continue Plan of Care Treatment Plan: Education, Functional Activity Vanessa, Functional Strength, Gait, Safety, Therapeutic Exercise, Transfers Treatment Duration: May 06, 2020 Frequency: 6 times per week Estimated Hrs Per Day: .25 hour per day Patient and/or Family Agrees t: Yes Safety Risks/Education Patient Education: Gait Training, Transfer Techniques, Correct Positioning, Safety Issues Teaching Recipient: Patient Teaching Methods: Demonstration, Discussion Response to Teaching: Reinforcement Needed Time/GCodes Time In: 1418 Time Out: 1429 Total Billed Treatment Time: 11 Total Billed Treatment 1 visit GT 11EVAN CHICAS PT May 01, 2020 14:45
[2020-05-01 15:30] VITALS: BP 122/79
[2020-05-01] MEDS: ALPRAZolam 0.5 MG (XANAX) TAB PO PRN (15:34)
--- NOTE | 2020-05-01 17:47 | Cardiology Progress Note ---
Cardiology SOAP Progress Note Subjective: Complaint of chest discomfort. Objective: I&O/Vital Signs 05/01/20 05/01/20 05/01/20 05/01/20 06:48 08:00 08:00 12:00 Temp 36.7 36.3 Pulse 88 83 96 Resp 18 20 B/P (MAP) 126/75 (92) 131/80 (97) Pulse Ox 92 96 O2 Delivery Room Air Room Air Room Air 05/01/20 05/01/20 12:47 15:30 Temp 36.6 Pulse 79 78 Resp 20 B/P (MAP) 122/79 (93) Pulse Ox 95 O2 Delivery Room Air 05/01/20 00:00 Intake Total 2600 ml Output Total 1250 ml Balance 1350 ml Weight (Pounds): 224 Weight (Ounces): 0 Weight (Calculated Kilograms): 101.477191 Constitutional: AAO x 3, well-developed, well-nourished, other (appears somewhat anxious and nervous, shaking both legs) Respiratory: No accessory muscle use, No respiratory distress; other (fair to good bilat air entry, coarse basal crackles on the L) Cardiovascular: regular rate-rhythm, S1 and S2, systolic murmur (soft GRISELDA at card base) Gastrointestional: No tender; soft; No guarding, No rebound; audible bowel sounds Extremities: No clubbing, No cyanosis, No significant edema Neurologic/Psychiatric: oriented x 3, other (moves all limbs equally) Skin: warm/dry; No cyanosis, No cool, No diaphoresis, No rash on exposed areas, No ulcerations on exposed areas Results/Procedures: Labs Laboratory Tests 05/01/20 04:42: White Blood Count 8.8, Red Blood Count 3.50L, Hemoglobin 9.4L, Hematocrit 29L, Mean Corpuscular Volume 82, Mean Corpuscular Hemoglobin 27, Mean Corpuscular Hemoglobin Concent 33, Red Cell Distribution Width 15.4H, Platelet Count 459H, Mean Platelet Volume 10.5H, Neutrophils (%) (Auto) 58, Lymphocytes (%) (Auto) 16, Monocytes (%) (Auto) 18H, Eosinophils (%) (Auto) 8, Basophils (%) (Auto) 0, Neutrophils # (Auto) 5.1, Lymphocytes # (Auto) 1.4, Monocytes # (Auto) 1.6H, Eosinophils # (Auto) 0.7H, Basophils # (Auto) 0.0, Sodium Level 141, Potassium Level 3.8, Chloride Level 110H, Carbon Dioxide Level 23, Anion Gap 8, Blood Urea Nitrogen 9, Creatinine 0.93, Estimat Glomerular Filtration Rate > 60, BUN/Creatinine Ratio 10, Glucose Level 81, Calcium Level 8.3L, Corrected Calcium 9.1, Total Bilirubin 0.4, Aspartate Amino Transf (AST/SGOT) 12, Alanine Aminotransferase (ALT/SGPT) 11, Alkaline Phosphatase 91, Total Protein 5.4L, Albumin 3.0L A/P: Assessment/Dx: Marked weakness and wgt loss due to prolonged hospitalizations for sepsis in February, March, and Apr 2020 Nausea and vomiting and poor oral intake - improved Orthostatic symptoms/hypotension - improved PAF, s/p ablation by Dr Rodriguez at [facility] in 2018 or 2019; pt reports to have had recurrence in February 2020 OAC with Eliquis Mild CAD consisting of mild to mod dz of the LAD that has been unchanged on card caths of 2014, 2017, and 2018 (last in Sep 2018 to eval minimal troponin elev) Echo of 03/31/20: LVEF 55-65%, mod MR, PASP 35-40 mmHg Mild troponin elevation w/o evidence of ACS: type 2 PA (likely due to transient hypotension due to meds and low oral intake) Plan: * Advised increased oral intake and improved nutrition. Meanwhile, iv fluids * Diltiazem d/c'd (because of h/o intermittently low bp and postural symptoms) * Reduced amiodarone (pt reports nausea after current dose of amiodarone) - improved with reduced dose * PT/OT * Monitor labs * Continue OAC with Eliquis Thank you for your consultation. Please call me if you have any questions. Michael Wilder MD, FACP, FACC, FSCAI, FHRS, CCDS Interventional Cardiology Cardiac Electrophysiology Vascular Medicine and Endovascular Interventions Clinical Quality Measures AMI/AHF: ASA po Prior to arrival: Kitty Zapata MD May 01, 2020 17:47
[2020-05-01 20:00] VITALS: BP 122/78
[2020-05-01] MEDS: ALPRAZolam 1 MG (XANAX) TAB PO PRN (20:34)
--- NOTE | 2020-05-01 23:00 | NUR ---
[id number]-this rn contacted dr. welsh-pt reporting having had blood in his stool this evening (not witnessed by staff) & is requesting a sleep aid no new orders at this time
[2020-05-02] VITALS: BP 120/71
[2020-05-02] MEDS: NS IV 1000 ML 1,000 ML IV SCH ×2 (00:04→10:41)
[2020-05-02] MEDS: ALPRAZolam 0.5 MG (XANAX) TAB PO PRN (02:09)
[2020-05-02 04:00] VITALS: BP 98/62
[2020-05-02] MEDS: LEVOTHYROXINE 50 MCG (LEVOTHROID) TAB PO SCH (05:28)
[2020-05-02] MEDS: METOCLOPRAMIDE INJ 10 MG/2 ML (REGLAN) IVP SCH ×2 (05:28→11:00)
[2020-05-02 05:40] LABS: BASOPHILS # (AUTO) 0.1 10^3/uL (0.0-0.1); BASOPHILS % (AUTO) 1 % (0-10); EOSINOPHILS # (AUTO) 0.8 10^3/uL (0.0-0.3); EOSINOPHILS % (AUTO) 9 % (0-10); HEMATOCRIT 28 % (40-54); LYMPHOCYTES # (AUTO) 1.3 X 10^3 (1.0-4.0); LYMPHOCYTES % (AUTO) 16 % (12-44); MEAN CORPUSCULAR HEMOGLOBIN 27 PG (25-34); MEAN CORPUSCULAR HGB CONC 32 G/DL (32-36); MEAN CORPUSCULAR VOLUME 82 FL (80-99); MEAN PLATELET VOLUME 10.4 FL (7.4-10.4); MONOCYTES # (AUTO) 1.3 X 10^3 (0.0-1.0); MONOCYTES % (AUTO) 15 % (0-12); NEUTROPHILS # (AUTO) 4.9 X 10^3 (1.8-7.8); NEUTROPHILS % (AUTO) 59 % (42-75); PLATELET COUNT 418 10^3/uL (130-400); RED CELL DISTRIBUTION WIDTH 15.2 % (10.0-14.5); WHITE BLOOD COUNT 8.3 10^3/uL (4.3-11.0)
[2020-05-02 06:08] LABS: ALANINE AMINOTRANSFERASE 10 U/L (0-55); ALKALINE PHOSPHATASE 87 U/L (40-136); BILIRUBIN,TOTAL 0.3 MG/DL (0.1-1.0); BUN/CREATININE RATIO 11; CALCIUM 8.2 MG/DL (8.5-10.1); CARBON DIOXIDE 25 MMOL/L (21-32); CHLORIDE 111 MMOL/L (98-107); CREATININE SERUM 0.95 MG/DL (0.60-1.30); GFR ESTIMATED > 60; GLUCOSE 95 MG/DL (70-105); POTASSIUM 3.7 MMOL/L (3.6-5.0); SODIUM 141 MMOL/L (135-145); TOTAL PROTEIN 5.3 GM/DL (6.4-8.2)
[2020-05-02] MEDS: KCL 10 MEQ TAB (MICRO K) PO SCH (07:04)
[2020-05-02 08:34] VITALS: BP 117/73
[2020-05-02] MEDS: DOCUSATE SODIUM 100 MG (COLACE) CAP PO SCH (08:49)
[2020-05-02] MEDS: APIXABAN 5 MG (ELIQUIS) TABLET PO SCH (08:49)
[2020-05-02] MEDS: lisINopril 10 MG (PRINIVIL) TABLET PO SCH (08:49)
[2020-05-02] MEDS: AMIODARONE 200 MG (CORDARONE) TAB PO SCH (08:49)
--- NOTE | 2020-05-02 09:15 | Physical Therapy Daily Note ---
PT Daily Note-Current Subjective Patient sitting EOB and agrees to PT. No c/o. Pain Numeric Pain Scale: 0-No Pain Location: No Pain Reported Mental Status Patient Orientation: Normal For Age Attachments: IV Transfers SCALE: Activities may be completed with or without assistive devices. 3-Wccpnnywqp-oomzvml completes the activity by him/herself with no assistance from a helper. 5-Set-up or Clean-up Assistance-helper sets up or cleans up; patient completes activity. [place] assists only prior to or following the activity. 4-Supervision or Touching Assistance-helper provides verbal cues and/or touching/steadying and/or contact guard assistance as patient completes activity. Assistance may be provided throughout the activity or intermittently. 3-Partial/Moderate Assistance-helper does LESS THAN HALF the effort. Supply lifts, holds or supports trunk or limbs, but provides less than half the effort. 2-Substantial/Maximal Assistance-helper does MORE THAN HALF the effort. Supply lifts or holds trunk or limbs and provides more than half the effort. 5-Katnefjso-sfggqe does ALL the effort. Patient does none of the effort to complete the activity. Or, the assistance of 2 or more helpers is required for the patient to complete the activity. If activity was not attempted, code reason: 7-Patient Refused. 9-Not Applicable-not attempted and the patient did not perform the activity before the current illness, exacerbation or injury. 10-Not Attempted due to Environmental Limitations-(lack of equipment, weather restraints, etc.). 88-Not Attempted due to Medical Conditions or Safety Concerns. Sit to Stand (QC): 6 Weight Bearing Right Lower Extremity: Right Weight Bearing/Tolerated Left Lower Extremity: Left Weight Bearing/Tolerated Gait Training Does the Patient Walk?: Yes Distance: 800' Walk 10 feet (QC): 6 Walk 50 ft with 2 Turns(QC): 6 Walk 150 ft (QC): 6 Gait Assistive Device: None slow, steady, functional gait sequence Assessment Patient is currently at independent PLOF with all gross motor skills. Plan dismissal this week. PT to dismiss patient from services at this time. PT Electronic Sensing Equipment Assembler Goals Mcfp Goals PT Electronic Sensing Equipment Assembler Goals Time Frame: May 06, 2020 Roll Left & Right (QC): 6 Sit to Lying (QC): 6 Lying-Sitting on Side/Bed(QC): 6 Sit to Stand (QC): 5 Chair/Kmt-ps-Mqpux Xfer(QC): 5 Walk 10 feet (QC): 5 Walk 50ft with 2 Turns (QC): 5 Walk 150 ft (QC): 5 PT Plan Treatment/Plan Treatment Plan: Discontinue PT, goals met Treatment Plan: Education, Functional Activity Vanessa, Functional Strength, Gait, Safety, Therapeutic Exercise, Transfers Treatment Duration: May 06, 2020 Frequency: 6 times per week Estimated Hrs Per Day: .25 hour per day Patient and/or Family Agrees t: Yes Time/GCodes Time In: 902 Time Out: 911 Total Billed Treatment Time: 9 Total Billed Treatment 1 visit FA 9 min RAMIRO HOUSTON PT May 02, 2020 09:15
[2020-05-02] MEDS ORDERED: AMIO200T4 PO (10:23)
[2020-05-02] MEDS ORDERED: MECL-149 PO (10:23)
--- NOTE | 2020-05-02 10:24 | Discharge Summary ---
Discharge Summary Hospital Course Was the Problem List Reviewed?: Yes Problems/Dx: (1) Near syncope Status: Acute (2) Hypertension (3) Hyperlipidemia (4) Atrial fibrillation Status: Chronic (5) Elevated troponin Status: Acute Hospital Course Date of Admission: Apr 27, 2020 at 11:23 Admission Diagnosis : Family Physician/Provider: Indiana Bauer Aprn Date of Discharge: 05/02/20 Discharge Diagnosis: Chest pain, AF, Debility Hospital Course: Hospital course: Pt had a lengthy hospital course, as he does every time he is admitted. He came in with syncopal episode and chest pain, cardiology adjusted some medication including Amiodarone, Pt overall had really good supportive care, he was able to get around with PT, I did order a walker for him for discharge but due to his borderline personality disorder and malingering and somatic complaints it is really difficult to manage this Pt especially with chronic pain issues and chronic debility and disability. Labs and Pending Lab Test: Laboratory Tests 05/02/20 05:10: White Blood Count 8.3, Red Blood Count 3.40L, Hemoglobin 9.0L, Hematocrit 28L, Mean Corpuscular Volume 82, Mean Corpuscular Hemoglobin 27, Mean Corpuscular Hemoglobin Concent 32, Red Cell Distribution Width 15.2H, Platelet Count 418H, M maria t Platelet Volume 10.4, Neutrophils (%) (Auto) 59, Lymphocytes (%) (Auto) 16, Monocytes (%) (Auto) 15H, Eosinophils (%) (Auto) 9, Basophils (%) (Auto) 1, Neutrophils # (Auto) 4.9, Lymphocytes # (Auto) 1.3, Monocytes # (Auto) 1.3H, Eosinophils # (Auto) 0.8H, Basophils # (Auto) 0.1, Sodium Level 141, Potassium Level 3.7, Chloride Level 111H, Carbon Dioxide Level 25, Anion Gap 5, Blood Urea Nitrogen 10, Creatinine 0.95, Estimat Glomerular Filtration Rate > 60, BUN/Creatinine Ratio 11, Glucose Level 95, Calcium Level 8.2L, Corrected Calcium 9.0, Total Bilirubin 0.3, Aspartate Amino Transf (AST/SGOT) 8, Alanine Aminotransferase (ALT/SGPT) 10, Alkaline Phosphatase 87, Total Protein 5.3L, Albumin 3.0L Home Meds Active Meclizine HCl 25 Mg Tablet 12.5 Mg PO TID PRN Amiodarone HCl 200 Mg Tablet 200 Mg PO DAILY Klor-Con 10 (Potassium Chloride) 10 Meq Tablet.er 10 Meq PO DAILY@0700 Amiodarone HCl 200 Mg Tablet 200 Mg PO BID Reported Xanax (Alprazolam) 1 Mg Tablet 1 Mg PO HS PRN Levothyroxine Sodium 50 Mcg Tablet 50 Mcg PO DAILY Oxycodone HCl 10 Mg Tablet 10 Mg PO Q6H PRN Atorvastatin Calcium 40 Mg Tablet 40 Mg PO DAILY Lisinopril 10 Mg Tablet 10 Mg PO DAILY Eliquis (Apixaban) 5 Mg Tablet 5 Mg PO BID Alprazolam 1 Mg Tablet 0.5 Mg PO DAILY PRN Assessment/Pt Instructions [facility] in 1 week Discharge Planning: <30 minutes discharge planning Discharge Instructions Discharge Diet: Cardiac Diet Discharge Physical Examination Vital Signs Vital Signs Date Time Temp Pulse Resp B/P (MAP) Pulse Ox O2 Delivery O2 Flow Rate FiO2 05/02/20 08:34 37.1 89 18 117/73 (88) 93 Room Air General Appearance: No Apparent Distress, WD/WN HEENT: PERRL/EOMI, TMs Normal, Normal ENT Inspection, Pharynx Normal, Moist Mucous Membranes Respiratory: Chest Non Tender, Lungs Clear, Normal Breath Sounds, No Accessory Muscle Use, No Respiratory Distress Cardiovascular: Regular Rate, Rhythm, No Edema, No Gallop, No JVD, No Murmur, Normal Peripheral Pulses Gastrointestinal: Normal Bowel Sounds, No Organomegaly, No Pulsatile Mass, Non Tender, Soft Extremity: Normal Capillary Refill, Normal Inspection, Normal Range of Motion, Non Tender, No Calf Tenderness, No Pedal Edema Skin: Normal Color, Warm/Dry Neurologic/Psychiatric: Alert, Oriented x3, No Motor/Sensory Deficits, Normal Mood/Affect Allergies: Uncoded Allergies: IV contrast (Allergy, Unknown, 03/11/20) Discharge Summary Date of Admission Apr 27, 2020 at 11:23 Date of Discharge Discharge Date: May 02, 2020 Admission Diagnosis Chest pain -possibly Unstable angina- but it is vague in his description without precipitating factors- Coronary artery disease Chronic paroxysmal atrial fibrillation- currently in sinus on amiodarone, Chronic depression and anxiety Failed back Diffuse weakness with mild orthostasis most likely secondary to prolonged hospitalizations poor social situation without emotional support We'll check an a.m. cortisol especially since he had symptoms of orthostasis. Beta diana may be helpful and avoiding pranav inhibitors. Patient will be seen by cardiology. Because of his depression will have a psychological consult as well. Hopefully he can be evaluated for rehabilitation unit here and participate Discharge Diagnosis Assessment: Chest pain Type 2 [place] Borderline personality disorder Malingering Severe debility Depression Nausea and vomiting Plan: Supportive care Appreciate cardiology Monitor nausea and vomiting Needs fdc placement 04/30/20: PT/OT Monitor hemoglobin Disposition per social work 05/01/20: Needs a fdc or home care Malingering noted Hemoglobin stable at 9.4 (1) Near syncope Status: Acute (2) Hypertension (3) Hyperlipidemia (4) Atrial fibrillation Status: Chronic (5) Elevated troponin Status: Acute Clinical Quality Measures AMI/AHF: ASA po Prior to arrival: No DVT/VTE Risk/Contraindication: Risk Factor Score Per Nursin RFS Level Per Nursing on Admit: 4+=Very High JUAN MANUEL EVANS DO May 02, 2020 10:24
[2020-05-02 11:54] VITALS: BP 121/69
--- NOTE | 2020-05-02 12:31 | NUR ---
CM/SS: Visited with pt as to plan for discharge Plan: Pt will return home with home community based services and a front wheeled walker Summary: Pt will be going home today. He will use his home community based service hours (42) to assist him in the home. Front wheeled walker is ordered and delivered to the hospital. Pt wants this worker to call [facility] and let them know he will not be coming there. This worker notifies [facility] that pt will not be coming. Pt is wished well at time of discharge.
--- NOTE | 2020-05-02 16:23 | NUR ---
I WAS UNABLE TO COMPLETE THE MED REC PRIOR TO THE PT BEING DISCHARGED. I SPOKE WITH HIM TWICE SINCE HE ARRIVED AND BOTH TIMES HE WAS NOT FORTHCOMING WITH INFORMATION, AND WOULD NOT TELL ME WHAT MEDICATIONS HE WAS CURRENTLY TAKING PRIOR TO BEING ADMITTED. WHEN I EXPLAINED THE IMPORTANCE OF KNOWING MEDICATIONS HE WAS ON HE WOULD STATE "THE DR KNOWS WHAT THEY WANT ME ON AND I DONT WANT WRONG MEDS GIVEN TO ME WHEN I LEAVE" WHILE HE WAS STARING OUT THE WINDOW. THE MED REC MAY NOT BE ACCURATE DUE TO HIS PRIOR STAY AT (AND PT WAS NOT DIVULGING WHAT HE STARTED TAKING WHEN HE LEFT).
--- NOTE | 2020-05-02 18:08 | Cardiology Progress Note ---
Cardiology SOAP Progress Note Subjective: No cardiac complaints. Objective: I&O/Vital Signs 05/02/20 05/02/20 05/02/20 05/02/20 07:06 08:00 08:34 11:54 Temp 37.1 36.4 Pulse 81 89 94 Resp 18 18 B/P (MAP) 117/73 (88) 121/69 (86) Pulse Ox 93 96 O2 Delivery Room Air Room Air Room Air 05/02/20 12:00 B/P (MAP) 05/02/20 00:00 Intake Total 2330 ml Balance 2330 ml Weight (Pounds): 224 Weight (Ounces): 0 Weight (Calculated Kilograms): 101.413536 Constitutional: AAO x 3, well-developed, well-nourished, other (appears somewhat anxious and nervous, shaking both legs) Respiratory: No accessory muscle use, No respiratory distress; other (fair to good bilat air entry, coarse basal crackles on the L) Cardiovascular: regular rate-rhythm, S1 and S2, systolic murmur (soft GRISELDA at card base) Gastrointestional: No tender; soft; No guarding, No rebound; audible bowel sounds Extremities: No clubbing, No cyanosis, No significant edema Neurologic/Psychiatric: oriented x 3, other (moves all limbs equally) Skin: warm/dry; No cyanosis, No cool, No diaphoresis, No rash on exposed areas, No ulcerations on exposed areas Results/Procedures: Labs Laboratory Tests 05/02/20 05:10: White Blood Count 8.3, Red Blood Count 3.40L, Hemoglobin 9.0L, Hematocrit 28L, Mean Corpuscular Volume 82, Mean Corpuscular Hemoglobin 27, Mean Corpuscular Hemoglobin Concent 32, Red Cell Distribution Width 15.2H, Platelet Count 418H, Mean Platelet Volume 10.4, Neutrophils (%) (Auto) 59, Lymphocytes (%) (Auto) 16, Monocytes (%) (Auto) 15H, Eosinophils (%) (Auto) 9, Basophils (%) (Auto) 1, Neutrophils # (Auto) 4.9, Lymphocytes # (Auto) 1.3, Monocytes # (Auto) 1.3H, Eosinophils # (Auto) 0.8H, Basophils # (Auto) 0.1, Sodium Level 141, Potassium Level 3.7, Chloride Level 111H, Carbon Dioxide Level 25, Anion Gap 5, Blood Urea Nitrogen 10, Creatinine 0.95, Estimat Glomerular Filtration Rate > 60, BUN /Creatinine Ratio 11, Glucose Level 95, Calcium Level 8.2L, Corrected Calcium 9.0, Total Bilirubin 0.3, Aspartate Amino Transf (AST/SGOT) 8, Alanine Aminotransferase (ALT/SGPT) 10, Alkaline Phosphatase 87, Total Protein 5.3L, Albumin 3.0L A/P: Assessment/Dx: Marked weakness and wgt loss due to prolonged hospitalizations for sepsis in February, March, and Apr 2020 Nausea and vomiting and poor oral intake - improved Orthostatic symptoms/hypotension - improved PAF, s/p ablation by Dr Rodriguez at [facility] in 2018 or 2019; pt reports to have had recurrence in February 2020 OAC with Eliquis Mild CAD consisting of mild to mod dz of the LAD that has been unchanged on card caths of 2014, 2017, and 2018 (last in Sep 2018 to eval minimal troponin elev) Echo of 03/31/20: LVEF 55-65%, mod MR, PASP 35-40 mmHg Mild troponin elevation w/o evidence of ACS: type 2 CA (likely due to transient hypotension due to meds and low oral intake) Plan: * Advised increased oral intake and improved nutrition. Meanwhile, iv fluids * Diltiazem d/c'd (because of h/o intermittently low bp and postural symptoms) * Reduced amiodarone (pt reports nausea after current dose of amiodarone) - improved with reduced dose * PT/OT * Monitor labs * Continue OAC with Eliquis * Patient is being transferred to a long-term today. 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 Thank you for your consultation. Please call me if you have any questions. Michael Wilder MD, FACP, FACC, FSCAI, FHRS, CCDS Interventional Cardiology Cardiac Electrophysiology Vascular Medicine and Endovascular Interventions Clinical Quality Measures AMI/AHF: ASA po Prior to arrival: Kitty Zapata MD May 02, 2020 18:08
--- OUTSIDE RECORDS SUMMARY | 2020-05-03 11:24 | XMS REPORT | Encounter Summary ---
Author Author [facility] Organization [facility] Address Unknown Phone Unavailable Care Team Providers Care Injection Molding Operator Name Role Phone Sherman Spicer MD Unavailable StaReyna hudson Unavailable Unavailable Indiana Bauer APRN PCP Unavailable Lenka Fuentes RN [phone] Unavailable Encounter Details Care Team Description Date Type Department Ya Howard RN 04/26/2020 Telephone Cardiology: [place] [address] [facility] [place] [address] Social History Date Tobacco Use Types Packs/Day Years Used Quit: 1979 Former Smoker Cigarettes Smokeless Tobacco: Never Used Drinks/Week oz/Week Comments Alcohol Use No Sex Assigned at Date Recorded Not on file Date Recorded COVID-19 Exposure Response 04/06/2020 8:31 PM CDT In the last month, have you been in contact with No / Unsure someone who was confirmed or suspected to have Coronavirus / COVID-19? documented as of this encounter Functional Status Date of Assessment Functional Status Response 04/07/2020 Does the patient have a hearing impairment: No documented as of this encounter Miscellaneous Notes * Telephone Encounter - Ya Howard RN - 04/26/2020 12:00 PM CDT PATRICK BRAR Received: Today Call patient Message Contents Mercy Carbajal LPN P Cvm Nurse Yousif VM from patient on triage line and could make out every word this jackie. 1- I was not discharged, I walked out because I was getting weaker and weaker. 2- I don Not need a refill, I need to know how to take Amiodarone. Is it daily or BID. 3- do I still need to take high b/p and cholesterol medication. 4- so he is wanting to know what medications to take and how often. 5- He is at #[phone], said to leave message and I'm done. attempted to call David back however, phone kept disconnecting. 04/25/20 hospital progress note his medications were listed as following Medications Scheduled Meds:amiodarone (CORDARONE) tablet 400 mg, 400 mg, Oral, QDAY apixaban (ELIQUIS) tablet 5 mg, 5 mg, Oral, BID atorvastatin (LIPITOR) tablet 40 mg, 40 mg, Oral, QDAY diclofenac (VOLTAREN) 1 % topical gel 2 g, 2 g, Topical, QID dilTIAZem CD (cardIZEM CD) capsule 120 mg, 120 mg, Oral, QDAY levothyroxine (SYNTHROID) tablet 50 mcg, 50 mcg, Oral, QDAY 30 min before breakf ast melatonin tablet 5 mg, 5 mg, Oral, QHS polyethylene glycol 3350 (MIRALAX) packet 17 g, 1 packet, Oral, QDAY senna (SENOKOT) tablet 1-2 tablet, 1-2 tablet, Oral, BID traZODone (DESYREL) tablet 25 mg, 25 mg, Oral, QHS * Telephone Encounter - Ya Howard RN - 04/26/2020 9:53 AM CDT returned call to Mr Rice however, no answer. left message on voice mail to call back if he does not have his medication (per discharge note and protective services case worker note, he left AMA last evening) asked him to c/b when he received my message * Telephone Encounter - Ya Howard RN - 04/26/2020 9:38 AM CDT ----- Message from Mercy Carbajal LPN sent at 04/26/2020 8:15 AM CDT ----- Regarding: MPE- hospital / VM from patient on triage line. Said that he just got out of [facility] last night. Call was garbled after that and all I could make out was given 1 Amiodarone and that was it of 42 second VM. Call him at #[phone]. documented in this encounter Plan of Treatment [...]
--- OUTSIDE RECORDS SUMMARY | 2020-05-03 11:24 | XMS REPORT | Clinical Summary ---
Author Author [facility] Organization [facility] Address Unknown Phone Unavailable Care Team Providers Care Training Development Specialist Name Role Phone Sherman Spicer MD Unavailable StaReyna hudson Unavailable Unavailable Indiana Bauer APRN PCP Unavailable Lenka Fuentes RN [phone] Unavailable Source Comments Some departments are not documenting in the electronic medical record. If you d o not see the information that you expected, contact Release of Information in [facility] [employer] Information Management department at [phone] for further assistan ce in locating additional records.[facility] Allergies Comments Active Allergy Reactions Severity Noted [...] Information Patient taking differently: 1 mg Oral AT BEDTIME DAILY, Informant: Outside Record, Reported on 04/07/2020 1:32 PM Active levothyroxine (SYNTHROID) Take 50 mcg 0 50 mcg tablet by mouth daily 30 minutes before breakfast. Active apixaban (ELIQUIS) 5 mg Take one 60 tablet 1 tablet tablet by 0 mouth twice daily. Active atorvastatin (LIPITOR) 40 Take one 90 tablet 0 mg tablet tablet by 0 mouth daily. Active Miscellaneous Medical automatic 1 each 0 / Supply [employer] blood 0 pressure machine to monitor VS daily. Active oxyCODONE (ROXICODONE) 10 Take one 12 tablet 0 mg tablet tablet by 0 mouth every 12 hours as needed Active dilTIAZem CD (CARDIZEM Take one 90 capsule 0 CD) 120 mg capsule capsule by 0 mouth daily. Active traZODone (DESYREL) 50 mg Take one 30 tablet 0 tablet tablet by 0 mouth at bedtime as needed. Additional Information Patient not taking. Informant: Self, Reported on 04/07/2020 1:59 PM Active amiodarone (CORDARONE) Take 2 0 04/18/2 02 200 mg tablet tablets (400 0 mg) by mouth once daily until 07/18. Then take 1 tablet (200mg) by mouth once daily thereafter 04/11/2020 Discontinued lisinopriL (ZESTRIL) 10 Take one 90 tablet 3 mg tablet tablet by 0 mouth daily. 04/05/2020 Discontinued amiodarone (CORDARONE) Take two 60 tablet 1 200 mg tablet tablets by 0 mouth daily. Take with food. Follow up with raiser helper for dose adjustments 04/11/2020 Discontinued furosemide (LASIX) 20 mg Take one 60 tablet 1 0 tablet tablet by 0 mouth twice daily. 04/07/2020 Discontinued (Removed from P TA Med List) acetaminophen (TYLENOL) Take two 0 325 mg tablet tablets by 0 mouth every 4 hours as needed. This medication may be purchased from over the counter from your preferred pharmacy 04/07/2020 Discontinued (Removed from P TA Med List) melatonin 5 mg tab Take one 0 tablet by 0 mouth at bedtime daily. 04/07/2020 Discontinued (Removed from P TA Med List) senna (SENOKOT) 8.6 mg Take one 0 03/27/2 02 tablet tablet by 0 mouth twice daily. 04/11/2020 Discontinued (Reorder) amiodarone (CORDARONE) Take three 312 tablet 0 200 mg tablet tablets by 0 mouth daily for 14 days, THEN one tablet twice daily for 90 days, THEN one tablet daily for 90 days. Take 600mg q day for 2 weeks,on 04/20/2020 then take 400mg q day for 3 months. On 07/21/2020, take 200mg q day. Take with food. 04/18/2020 Discontinued (Reorder) amiodarone (CORDARONE) Take 1 tablet 312 tablet 0 0 200 mg tablet (200mg) by 0 mouth three times daily until 04/17. Then take 2 tablets (400 mg) by mouth once daily until 07/18. Then take 1 tablet (200mg) by mouth once daily thereafter Active Problems Patient Care Coordination Note Please complete a medical screening exam to rule out emergent issues. If no emergent needs are identified, please contact the MVP Team. MVP Team Contact: Lenka Fuentes RN Pager: [phone] (Pager Available M-F [phone]) ED Visits: 0 Admissions: 5 Primary Associate Designer of Utilization (see progress note): Suspect ED is easier to access. Patient's Barriers/Challenges: Typically transferred from OSH History of recurrent A.fib Anxiety Limited support systems Interventions: Unable to assess this IP admission. Per EMR, IP SWCM assisted with placement for d/c - [facility]. Patient refused direct transfer to rehab facility [...] Rodriguez - [facility] / Indiana Bauer (PAPER INSPECTOR) - PCP external ([facility]) Disposition: Patient was d/c home on 03/28/2020 with resumption of HCBS services. Patient instructed to f/u with [facility] on 03/29/2020. Pt last assessed: Unable to assess this IP admission. Problem Noted Date Contamination of blood culture 04/08/2020 Syncope 04/07/2020 Septic shock 03/16/2020 E. coli sepsis 03/16/2020 [...] Description Date Type Specialty Ya Howard RN 04/26/2020 Telephone Cardiology Surya Greene RN Follow-up Phone Call 04/22/2020 Telephone Cardiology Patrick Constantino, RN Medical Question 04/17/2020 Telephone Cardiology Ya Howard RN Follow-up Phone Call (returned call - [facility] inpatient at [facility]) 04/15/2020 Telephone Cardiology Ya Howard RN 04/09/2020 Telephone Cardiology Giovani Victor MBBS Dosokey, Eslam M, MD Raza, Sidra, MD Pei, Lei, MD Ansari, MD Jorge Sheridan Johanna S, MD Syncope 04/07/2020 Hospital - Encounter 04/25/2020 04/06/2020 Hospital Radiology Encounter 04/06/2020 Hospital Radiology Encounter 04/06/2020 Travel Beny Paredes, executive coordinator Question (amiodarone) 04/05/2020 Telephone Cardiology Patrick Constantino, RN Appointment 04/01/2020 Telephone Cardiology 03/27/2020 Travel Tsering Diehl, GORDO Follow-up Phone Call 03/25/2020 Telephone Cardiology Samia Garzon, RN Appointment 03/21/2020 Telephone Cardiology Lenka Fuentes RN 03/21/2020 Patient Outreach Siva Oliveira MD 03/16/2020 Hospital Radiology Encounter Siva Oliveira MD Latham, Heath E, MD Gogireddy, Jaylene Rodriguez MD E. coli sepsis (HCC) 03/16/2020 Hospital [...] is on HC9) 02/23/2020 Telephone Cardiology Tsering Diehl, GORDO Follow-up Phone Call 02/21/2020 Telephone Cardiology [place] [...] Anticoagulation (Eliquis hold ) 02/01/2020 Telephone Cardiology from Last 3 Months Family [...] Signs Reading Time Taken Comments Vital Sign 130/84 04/25/2020 11:38 AM CDT Blood Pressure 81 04/25/2020 11:38 AM CDT Pulse 36.9 C (98.4 F) 04/25/2020 11:38 AM CDT Temperature - - Respiratory Rate 98% 04/25/2020 11:38 AM CDT Oxygen Saturation - - Inhaled Oxygen Concentration 108.5 kg (239 lb 3.2 oz) 04/07/2020 12:58 AM CDT Weight 182.9 cm (6') 04/07/2020 12:58 AM CDT Height 32.44 04/07/2020 12:58 AM CDT Body Mass Index Plan of [...] Name Priority Date/Time Associated Diag nosis HC BASIC METABOLIC PANEL Routine 04/24/2020 4:46 AM CDT HC CBC W/ AUTOMATED DIFF Routine 04/24/2020 4:46 AM CDT HC BASIC METABOLIC PANEL Routine 04/23/2020 4:01 AM CDT HC CBC W/ AUTOMATED DIFF Routine 04/23/2020 4:01 AM CDT HC BASIC METABOLIC PANEL Routine 04/22/2020 3:52 AM CDT HC CBC W/ AUTOMATED DIFF Routine 04/22/2020 3:52 AM CDT HC BASIC METABOLIC PANEL Routine 04/21/2020 3:45 AM CDT HC CBC W/ AUTOMATED DIFF Routine 04/21/2020 3:45 AM CDT HC BASIC METABOLIC PANEL Routine 04/20/2020 4:14 AM CDT HC CBC W/ AUTOMATED DIFF Routine 04/20/2020 4:14 AM CDT HC BASIC METABOLIC PANEL Routine 04/19/2020 3:56 AM CDT HC CBC W/ AUTOMATED DIFF Routine 04/19/2020 3:56 AM CDT ECG 12-LEAD STAT 04/19/2020 1:32 AM CDT URINALYSIS, MICROSCOPIC Routine 04/18/2020 5:10 PM CDT HC URINALYSIS, AUTO W Routine 04/18/2020 MICRO 5:10 PM CDT HC TSH(THYROID Routine 04/18/2020 STIMULATING HORM) 4:46 PM CDT HC CBC W/ AUTOMATED DIFF Routine 04/18/2020 4:46 PM CDT HC COMPREHENSIVE Routine 04/18/2020 METABOLIC PANEL 4:46 PM CDT HC BASIC METABOLIC PANEL Routine 04/18/2020 7:53 AM CDT HC CBC W/ AUTOMATED DIFF Routine 04/18/2020 7:53 AM CDT HC BASIC METABOLIC PANEL Routine 04/17/2020 4:28 AM CDT HC CBC W/ AUTOMATED DIFF Routine 04/17/2020 4:28 AM CDT ECG 12-LEAD Routine 04/16/2020 12:40 AM CDT HC CBC,AUTOMATED 04/14/2020 8:08 AM CDT HC BASIC METABOLIC PANEL 04/14/2020 8:08 AM CDT HC BASIC METABOLIC PANEL Routine 04/12/2020 6:24 PM CDT HC COMPREHENSIVE Routine 04/10/2020 METABOLIC PANEL 3:44 AM CDT HC CBC W/ AUTOMATED DIFF Routine 04/10/2020 3:44 AM CDT HC TROPONIN-I STAT 04/09/2020 2:30 PM CDT ECG 12-LEAD STAT 04/09/2020 2:07 PM CDT HC COMPREHENSIVE Routine 04/09/2020 METABOLIC PANEL 4:06 AM CDT HC CBC W/ AUTOMATED DIFF Routine 04/09/2020 4:06 AM CDT CULTURE-BLOOD Routine 04/08/2020 W/SENSITIVITY 4:12 PM CDT HC CULTURE-BLOOD Routine 04/08/2020 4:00 PM CDT HC COMPREHENSIVE Routine 04/08/2020 METABOLIC PANEL 4:47 AM CDT HC CBC W/ AUTOMATED DIFF Routine 04/08/2020 4:47 AM CDT ECG 12-LEAD STAT 04/07/2020 6:39 AM CDT HC TROPONIN-I STAT 04/07/2020 6:[address] HEAD WO CONTRAST STAT 04/07/2020 6:02 AM CDT TROPONIN-I STAT 04/07/2020 4:15 AM CDT HC *FREE T4 (REFLEX) Routine 04/07/2020 2:45 AM CDT HC TSH SCREEN Routine 04/07/2020 2:45 AM CDT HC TROPONIN-I STAT 04/07/2020 2:45 AM CDT HC B-TYPE NATRIURETIC Routine 04/07/2020 PEPTIDE 2:45 AM CDT HC Routine 04/07/2020 LIPID-5:CHOL/TRG/HDL/LDL+ 2:45 AM CDT VLDL HC HEMOGLOBIN A1C Routine 04/07/2020 2:45 AM CDT HC PHOSPHOROUS, SERUM Routine 04/07/2020 2:45 AM CDT HC MAGNESIUM Routine 04/07/2020 2:45 AM CDT HC PT(INR) Routine 04/07/2020 2:45 AM CDT HC COMPREHENSIVE Routine 04/07/2020 METABOLIC PANEL 2:45 AM CDT HC CBC W/ AUTOMATED DIFF Routine 04/07/2020 2:45 AM CDT COVID-19 (SARS-COV-2) PCR Routine 04/07/2020 2:45 AM CDT TELEMETRY STRIPS-SCAN 04/07/2020 12:00 AM CDT ECG-SCAN 04/07/2020 12:00 AM CDT ECG-SCAN 04/07/2020 12:00 AM CDT ECG-SCAN 04/07/2020 12:00 AM CDT ECG-SCAN 04/07/2020 12:00 AM CDT TELEMETRY STRIPS-SCAN 04/07/2020 12:[address] HEAD EXTERNAL IMAGING Routine 04/06/2020 12:05 AM CDT GENERAL RAD CHEST Routine 04/06/2020 EXTERNAL IMAGING 12:00 AM CDT MULTI GATED Routine 03/27/2020 2:17 PM CDT [...] Routine 03/16/2020 EXTERNAL IMAGING 10:53 AM CDT TELEMETRY STRIPS-SCAN 03/16/2020 12:00 AM CDT TELEMETRY STRIPS-SCAN 03/16/2020 12:00 AM CDT TELEMETRY STRIPS-SCAN 03/16/2020 12:00 AM CDT ECG-SCAN 03/16/2020 12:00 [...] Routine 03/13/2020 EXTERNAL IMAGING 12:15 AM CDT [facility] EXTERNAL IMAGING Routine 03/13/2020 12:10 AM CDT [...] AM CDT ECG-SCAN 02/02/2020 12:00 AM CDT from Last 3 Months Results * CBC AND DIFF (04/24/2020 4:46 AM CDT) Only the most recent of 29 results within the time period is included. White Blood 8.2 4.5 - 11.0 K/UL [facility] Cells RBC 3.88 (L) 4.4 - 5.5 M/UL [facility] Hemoglobin 10.6 (L) 13.5 - 16.5 GM/DL [facility] Hematocrit 31.8 (L) 40 - 50 % [facility] MCV 81.8 80 - 100 FL [facility] MCH 27.4 26 - 34 PG [facility] MCHC 33.5 32.0 - 36.0 G/DL [facility] RDW 14.9 11 - 15 % [facility] Platelet Count 440 (H) 150 - 400 K/UL [facility] MAIN [...] - 2 % [facility] Absolute 5.03 1.8 - 7.0 K/UL [facility] Neutrophil Count Absolute Lymph 1.44 1.0 - 4.8 K/UL [facility] Count Absolute 1.00 (H) 0 - 0.80 K/UL [facility] Monocyte Count Absolute 0.60 (H) 0 - 0.45 K/UL [facility] Eosinophil Count Absolute 0.11 0 - 0.20 K/UL [facility] Basophil Count Specimen Blood Performing Organization Address City/State/Zipcode Ph one Number [facility] [address] [place] [address] * BASIC METABOLIC PANEL (04/24/2020 4:46 AM CDT) Only the most recent of 19 results within the time period is included. Sodium 142 137 - 147 MMOL/L [facility] Potassium 3.8 3.5 - 5.1 MMOL/L [facility] Chloride 108 98 - 110 MMOL/L [facility] CO2 25 21 - 30 MMOL/L [facility] Anion Gap 9 3 - 12 [facility] Glucose 93 70 - 100 MG/DL [facility] Blood Urea 17 7 - 25 MG/DL [facility] Nitrogen Creatinine 1.14 0.4 - 1.24 MG/DL [facility] Calcium 8.6 8.5 - 10.6 MG/DL [facility] eGFR Non >60 >60 mL/min [facility] Comment: [place] The eGFR is not validated f or use in drug dosing adjustments. Continue to use estimated creatinine clearance per dosing reference text. Please contact the Clinical Pharmacist for questions. eGFR >60 >60 mL/min [facility] [place] Comment: The eGFR is not validated for use in drug dosing adjustments. Continue to use estimated creatinine clearance per dosing reference text. Please contact the Clinical Pharmacist for questions. Specimen Blood Performing Organization Address [facility] Ph one Number [facility] [address] [place] [address] * URINALYSIS, MICROSCOPIC (04/18/2020 5:10 PM CDT) Only the most recent of 2 results within the time period is included. WBCs,UA 0-2 0 - 2 /HPF [facility] RBCs,UA NONE 0 - 3 /HPF [facility] Specimen Urine - Urine Performing Organization Address [facility] Ph one Number [facility] [address] [place] [address] * URINALYSIS DIPSTICK (04/18/2020 5:10 PM CDT) Only the most recent of 2 results within the time period is included. Color,UA STRAW [facility] Turbidity,UA CLEAR CLEAR-CLEAR [facility] Specific 1.004 1.003 - 1.035 [facility] Jackman-Urine pH,UA 7.0 5.0 - 8.0 [facility] Protein,UA [...] [facility] Acid, UA Specimen Urine - Urine Performing Organization Address [facility] one Number [facility] [address] [place] [address] * THYROID STIMULATING HORMONE-TSH (04/18/2020 4:46 PM CDT) Only the most recent of 2 results within the time period is included. TSH 1.95 0.35 - 5.00 MCU/ML [facility] Specimen Blood Performing Organization Address [facility] Ph one Number [facility] [address] [place] [address] * COMPREHENSIVE METABOLIC PANEL (04/18/2020 4:46 PM CDT) Only the most recent of 19 results within the time period is included. Pathologist [facility] Sodium 142 137 - 147 MMOL/L K[facility] [...] 8.0 G/DL [facility] Total Bilirubin 0.2 (L) 0.3 - 1.2 MG/DL [facility] Albumin 3.6 3.5 - 5.0 G/DL [facility] Alk Phosphatase 106 25 - 110 U/L [facility] AST (SGOT) 14 7 - 40 U/L [facility] CO2 27 21 - 30 MMOL/L [facility] ALT (SGPT) 14 7 - 56 U/L [facility] Anion Gap 10 3 - 12 [facility] eGFR Non 56 (L) >60 mL/min [facility] Comment: [place] The eGFR is not validated f or use in drug dosing adjustments. Continue to use estimated creatinine clearance per dosing reference text. Please contact the Clinical Pharmacist for questions. eGFR >60 >60 mL/min [facility] [place] Comment: The eGFR is not validated for use in drug dosing adjustments. Continue to use estimated creatinine clearance per dosing reference text. Please contact the Clinical Pharmacist for questions. Specimen Blood Performing Organization Address City/State/Zipcode Ph one Number [facility] [address] [place] [address] * CBC (04/14/2020 8:08 AM CDT) Only the most recent of 2 results within the time period is included. Pathologist [facility] White Blood 6.2 4.5 - 11.0 K/UL [facility] Cells RBC 4.05 (L) 4.4 - 5.5 M/UL [facility] Hemoglobin 11.5 (L) 13.5 - 16.5 GM/DL [facility] Hematocrit 33.6 (L) 40 - 50 % [facility] MCV 82.9 80 - 100 FL [facility] MCH 28.5 26 - 34 PG [facility] MCHC 34.3 32.0 - 36.0 G/DL [facility] RDW 15.3 (H) 11 - 15 % [facility] Platelet Count 334 150 - 400 K/UL [facility] MPV 8.1 7 - 11 FL [facility] Specimen Performing Organization Address [facility] one Number [facility] [address] [place] [address] * TROPONIN-I (04/09/2020 2:30 PM CDT) Only the most recent of 16 results within the time period is included. Troponin-I 0.04 0.0 - 0.05 NG/ML [facility] Specimen Blood Performing Organization Address [facility] one Number MAIN LAB [address] [place] [address] * CULTURE-BLOOD W/SENSITIVITY (04/08/2020 4:12 PM CDT) Only the most recent of 6 results within the time period is included. Battery Name BLOOD CULTURE MAIN LAB Specimen BLOOD [facility] Description RIGHT H Special NONE MAIN LAB Requests Culture NO GROWTH 5 DAYS [facility] Report Status FINAL [facility] 04/14/2020 Specimen Blood Performing Organization Address [facility] one Number MAIN LAB [address] [place] [address] * CT HEAD WO CONTRAST (04/07/2020 6:02 AM CDT) Specimen Impressions Performed At IMPRESSION: [facility] RESULTS 1. No acute intracranial hemorrhage o r mass effect. 2. 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 By my electronic signature, I attest th at I have personally reviewed the images for this examination and formulated the interpretations and opinions expressed in this report Finalized by Stephen Huerta MD, PhD on 04/07/2020 6:21 AM. Dictated by Errol Sandy MD on 04/07/2020 6:05 AM. Narrative Performed At EXAM: CT HEAD [facility] RESULTS HISTORY: Male, 59 years old, Headache, loss of c onsciousness. Trauma 24 hours ago or more. TECHNIQUE: Multiple contiguous axial im ages were obtained of the brain without intravenous contrast. COMPARISON: None FINDINGS: The ventricles and subarachnoid spaces are normal in size and configuration. There is no midline shift or mass eff ect. The lópez white matter interfaces are maintained. The basal cisterns are blandon nt. There is no evidence of acute intracranial hemorrhage or extra-axial fluid collection. Redemonstration of findings compatible with fibrous dyspla jelena involving the posterior right ethmoid and right sphenoid sinuses. Additional areas of predominantly sclerotic heterogeneous bone are seen within the right frontal calvarium and right sphenoid wing. Procedure Note Interface, Radiant Results - 04/07/2020 6:25 AM CDT EXAM: CT HEAD HISTORY: Male, 59 years old, Headache, loss of consciousness. Trauma 24 hours ago or more. TECHNIQUE: Multiple contiguous axial images were obtained of the brain without intravenous contrast. COMPARISON: None FINDINGS: The ventricles and subarachnoid spaces are normal in size and configuration. There is no midline shift or mass effect. The lópez white matter interfaces are maintained. The basal cisterns are patent. There is no evidence of acute intracranial hemorrhage or extra-axial fluid collection. 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 Additional areas of predominantly sclerotic heterogeneous bone are seen within the right frontal calvarium and right sphenoid wing. IMPRESSION IMPRESSION: 1. No acute intracranial hemorrhage or mass effect. 2. 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 By my electronic signature, I attest that I have personally reviewed the images for this examination and formulated the interpretations and opinions expressed in this report Finalized by Stephen Huerta MD, PhD on 04/07/2020 6:21 AM. Dictated by Errol Sandy MD on 04/07/2020 6:05 AM. Performing Organization Address City/State/Zipcode Ph one Number RAD RESULTS * COVID-19 (SARS-COV-2) PCR (04/07/2020 2:45 AM CDT) Only the most recent of 3 results within the time period is included. COVID-19 NASOPHARYNGEAL SWAB MAIN LAB (SARS-CoV-2) PCR Source COVID-19 NOT DETECTED DN-NOT DETECTED MAIN LAB (SARS-CoV-2) Comment: PCR This assay [...] performance characteristics have been verified by the [facility]. Fact sheet for providers: https://www.fda.gov/media/6868 85/download Fact sheet for patients: https://www.fda.gov/media/8806 87/download Specimen Nasopharyngeal Swab Performing Organization Address [facility] one Number MAIN LAB [address] [place] [address] * FREE T4-FREE THYROXINE (04/07/2020 2:45 AM CDT) Only the most recent of 2 results within the time period is included. T4-Free 1.5 0.6 - 1.6 NG/DL MAIN LAB Specimen Performing Organization Address [facility] one Number MAIN LAB [address] [place] [address] * TSH WITH FREE T4 REFLEX (04/07/2020 2:45 AM CDT) Only the most recent of 3 results within the time period is included. TSH 8.22 (H) 0.35 - 5.00 MCU/ML MAIN LAB Specimen Blood Performing Organization Address [facility] one Number MAIN LAB [address] [place] [address] * PROTIME INR (PT) (04/07/2020 2:45 AM CDT) Only the most recent of 3 results within the time period is included. INR 1.4 (H) 0.8 - 1.2 MAIN LAB Specimen Blood Performing Organization Address [facility] one Number MAIN LAB [address] [place] [address] * PHOSPHORUS (04/07/2020 2:45 AM CDT) Only the most recent of 4 results within the time period is included. Phosphorus 3.4 2.0 - 4.5 MG/DL [facility] Specimen Blood Performing Organization Address [facility] one Number MAIN LAB [address] [place] [address] * BNP (B-TYPE NATRIURETIC PEPTI) (04/07/2020 2:45 AM CDT) Only the most recent of 4 results within the time period is included. B Type 331.0 (H) 0 - 100 PG/ML [facility] Natriuretic Peptide Specimen Blood Performing Organization Address [facility] one Number MAIN LAB [address] [place] [address] * MAGNESIUM (04/07/2020 2:45 AM CDT) Only the most recent of 25 results within the time period is included. Magnesium 1.8 1.6 - 2.6 mg/dL [facility] Specimen Blood Performing Organization Address [facility] one Number MAIN LAB [address] [place] [address] * HEMOGLOBIN A1C (04/07/2020 2:45 AM CDT) Only the most recent of 2 results within the time period is included. Hemoglobin A1C 5.6 4.0 - 6.0 % MAIN LAB Comment: The ADA recommends that most patients with type 1 and type 2 diabetes maintain an A1c level <7%. Specimen Blood Performing Organization Address [facility] one Number MAIN LAB [address] [place] [address] * LIPID PROFILE (04/07/2020 2:45 AM CDT) Only the most recent of 2 results within the time period is included. Cholesterol 114 <200 MG/DL [facility] Triglycerides 78 <150 MG/DL [facility] HDL 29 (L) >40 MG/DL [facility] LDL 70 <100 mg/dL [facility] VLDL 16 MG/DL [facility] Non HDL 85 MG/DL [facility] Cholesterol Comment: Calculated non-HDL Cholesterol (non-HDL-C) indirectly measures LDL-C, Lp(a), IDL-C, and VLDL-C. It is a surrogate marker for Apoprotein B. Goal should be less than 130 mg/dL. Specimen Blood Performing Organization Address City/State/Zipcode Ph one Number [facility] [address] [place] [address] * TELEMETRY STRIPS-SCAN (04/07/2020 12:00 AM CDT) Narrative Performed At This result has an attachment that is n ot available. Ordered by an unspecified provider. * TELEMETRY STRIPS-SCAN (04/07/2020 12:00 AM CDT) Narrative Performed At This result has an attachment that is n ot available. Ordered by an unspecified provider. * ECG-SCAN (04/07/2020 12:00 AM CDT) Narrative Performed At This result has an attachment that is n ot available. Ordered by an unspecified provider. * ECG-SCAN (04/07/2020 12:00 AM CDT) Narrative Performed At This result has an attachment that is n ot available. Ordered by an unspecified provider. * ECG-SCAN (04/07/2020 12:00 AM CDT) Narrative Performed At This result has an attachment that is n ot available. Ordered by an unspecified provider. * ECG-SCAN (04/07/2020 12:00 AM CDT) Narrative Performed At This result has an attachment that is n ot available. Ordered by an unspecified provider. * CT HEAD EXTERNAL IMAGING (04/06/2020 12:05 AM CDT) Specimen Narrative Performed At This order has been auto finalized and does not contain a result. * GENERAL RAD CHEST EXTERNAL IMAGING (04/06/2020 12:00 AM CDT) Only the most recent of 9 results within the time period is included. Specimen Narrative Performed At This order has been auto finalized and does not contain a result. * REGADENOSON MPI STRESS TEST (03/27/2020 2:17 [...] 92 mL OTHER OUTSIDE LAB Study Number [id number] OTHER OUTSIDE LAB Nuclear In aggregate the current study OTHER OUTSIDE Cardiology is low risk in regards to LAB Mortality Risk predicted annual cardiovascular mortality rate. Specimen Narrative Performed At OTHER OUTSIDE LAB Nuclear Report [facility] Division of Nuclear Cardiac Imaging Consultation Report EXAMINATION: D-SPECT Gated [id number] 1 Chloride myocardial perfusion single-photon emission computed tomogra phy for viability, resting regional wall function, resting ejection fractio n, and perfusion imaging utilizing Regadenoson pharmacological stress. Date of Study: 03/27/20 Study #: [id number] CATRINA CATRINA Billing ID: [id number] Referring Physician: Requested by: Jaylene Cloud MD [...] Approximately 20 seconds later 1.8 mCi of [id number] Chloride was injected intravenously. Throughout the infusion [...] intravenous injection of 0.5 5 mCi of [id number] Chloride as a reinjected dose to assist [...] Pharmacologic stress ECG is negative for ischemia. Yzrehbftz-zp-Ifmjqslisb Count Ratio: 0.36 (normal = or < [...] annual cardiovascular mortality rate. Performing Organization Address City/State/[facility] Ph one Number OTHER OUTSIDE LAB * CHEST SINGLE VIEW (03/21/2020 5:40 PM [...] on 03/22/2020 7:17 AM. Performing Organization Address [facility] one Number RAD RESULTS * PROTEIN/CR RATIO,UR RAN (03/21/2020 1:55 PM CDT) Pathologist [facility] Protein, Random 5 MG/DL [facility] Creatinine, 9 MG/DL [facility] Random Protein/CR 0.6 [facility] ratio Specimen Urine - Urine Performing Organization Address [facility] one Number MAIN LAB [address] [place] [address] * BLOOD GASES, ARTERIAL (03/20/2020 8:36 AM [...] Blood, arterial - Blood Performing Organization Address [facility]/Zipcode Ph one Number [facility] MAIN [facility] [address] [place] [address] * TRIGLYCERIDE (03/19/2020 3:58 AM CDT) Only the most recent of 2 results within the time period is included. Pathologist [facility] Triglycerides 120 <150 MG/DL MAIN LAB Specimen Blood Performing Organization Address City/[facility] Ph one Number MAIN LAB [address] [place] [address] * IONIZED CALCIUM,BG (03/18/2020 9:45 AM CDT) Pathologist [facility] Ionized Calcium 1.20 1.0 - 1.3 MMOL/L MAIN LAB Specimen Blood Performing Organization Address [facility] Ph one Number MAIN LAB [address] [place] [address] * 2D + DOPPLER ECHO (03/18/2020 7:27 AM CDT) Pathologist [facility] IVS 1.14 0.6 - 1.0 cm OTHER [...] OTHER OUTSIDE Mass Index LAB Cardiology Siemens [id number] OTHER OUTSIDE Ultrasound LAB Machine Referring [employer] Bauer OTHER OUTSIDE Provider LAB CV ECHO PV Floor RN OTHER OUTSIDE PULMONARY SPECIALIST LAB ECHO EF 60 % OTHER OUTSIDE [...] pericardial effusion is seen. Performing Organization Address City/[facility] Ph one Number OTHER OUTSIDE LAB * PROCALCITONIN (03/17/2020 2:50 AM CDT) Procalcitonin 0.44 (H) <0.11 ng/mL MAIN LAB Specimen Performing Organization Address City/State/Zipcode Ph one Number MAIN LAB [address] [place] [address] * CT ABD/PELV WO CONTRAST (03/16/2020 9:43 [...] on 03/16/2020 9:43 PM. Performing Organization Address [facility] one Number RAD RESULTS * LACTIC ACID (BG - RAPID LACTATE) (03/16/2020 8:07 PM CDT) Lactic Acid,BG 1.7 0.5 - 2.0 MMOL/L MAIN LAB Specimen Blood Performing Organization Address [facility] Ph one Number MAIN LAB [address] [place] [address] * VANCOMYCIN TIMED LEVEL (03/16/2020 8:07 PM CDT) Vancomycin 14.1 MCG/ML [facility] LAB Random Specimen Blood Performing Organization [facility] one Number MAIN LAB [address] [place] [address] * PTT (APTT) (03/16/2020 5:26 PM CDT) Only the most recent of 2 results within the time period is included. APTT 20.7 (L) 24.0 - 36.5 SEC MAIN LAB Specimen Blood Performing Organization [facility] one Number MAIN LAB [address] [place] [address] * LIPASE (03/16/2020 5:26 PM CDT) Lipase 4 (L) 11 - 82 U/L MAIN LAB Specimen Blood Performing Organization [facility]/Zipcode Ph one Number [facility] MAIN [facility] [address] [place] [address] * GRAM STAIN (03/16/2020 4:55 PM CDT) Battery Name GRAM STAIN [facility] Specimen TRACHEAL ASPIRATE MAIN LAB Description Special NONE [facility] Requests Gram Stain LESS THAN 10/LPF [facility] NEUTROPHILS LESS THAN 10/LPF SQUAMOUS EPITHELIAL CELLS NO ORGANISMS SEEN Report Status FINAL [facility] 03/16/2020 Specimen Tracheal Aspirate Performing Organization Address City/[facility] Ph one Number [facility] MA[facility] [address] [place] [address] * CULTURE-RESP,LOWER W/SENSITIVITY (03/16/2020 4:55 PM CDT) [...] 03/18/2020 Specimen Tracheal Aspirate Performing Organization Address [facility] Ph one Number MAIN LAB [address] [place] [address] * TELEMETRY STRIPS-SCAN (03/16/2020 12:00 AM CDT) Narrative Performed At This result has an attachment that is n ot available. Ordered by an unspecified provider. * TELEMETRY STRIPS-SCAN (03/16/2020 12:00 AM CDT) Narrative Performed At This result has an attachment that is n ot available. Ordered by an unspecified provider. 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 Performing Organization Address [facility] one Number OTHER OUTSIDE LAB * US [...] is n ot available. Performing Organization Address [facility] one Number MAIN LAB [address] [place] [address] * OPIATES-URINE RANDOM (02/21/2020 3:00 AM CDT) Opiates-Urine POS (A) NEG-NEG MAIN LAB Comment: RESULTS WERE OBTAINED BY IMMUNOASSAY AND ARE PRESUMPTIVE ONLY. POSITIVE INDICATES THE PRESENCE OF SUBSTANCE WITH CHARACTERISTICS SIMILAR TO DRUG-DRUG CLASS OR METABOLITE IN CONC. EQUAL TO OR EXCEEDING VALUES LISTED. OPIATES 2000 NG/ML Specimen Urine - Urine Performing Organization Address [facility] one Number MAIN LAB [address] [place] [address] * COCAINE-URINE RANDOM (02/21/2020 3:00 AM CDT) Cocaine-Urine NEG NEG-NEG MAIN LAB Comment: RESULTS WERE OBTAINED BY IMMUNOASSAY AND ARE PRESUMPTIVE ONLY. POSITIVE INDICATES THE PRESENCE OF SUBSTANCE WITH CHARACTERISTICS SIMILAR TO DRUG-DRUG CLASS OR METABOLITE IN CONC. EQUAL TO OR EXCEEDING VALUES LISTED. COCAINE 300 NG/ML Specimen Urine - Urine Performing Organization Address [facility] Ph one Number MAIN LAB [address] [place] [address] * CANNABINOIDS-URINE RANDOM (02/21/2020 3:00 AM CDT) THC NEG NEG-NEG MAIN LAB Comment: RESULTS WERE OBTAINED BY IMMUNOASSAY AND ARE PRESUMPTIVE ONLY. POSITIVE INDICATES THE PRESENCE OF SUBSTANCE WITH CHARACTERISTICS SIMILAR TO DRUG-DRUG CLASS OR METABOLITE IN CONC. EQUAL TO OR EXCEEDING VALUES LISTED. CANNABINOIDS 50 NG/ML Specimen Urine - Urine Performing Organization [facility] Ph one Number MAIN LAB [address] [place] [address] * BENZODIAZEPINES-URINE RANDOM (02/21/2020 3:00 AM CDT) Benzodiazepines POS (A) NEG-NEG MAIN LAB Comment: RESULTS WERE OBTAINED BY IMMUNOASSAY AND ARE PRESUMPTIVE ONLY. POSITIVE INDICATES THE PRESENCE OF SUBSTANCE WITH CHARACTERISTICS SIMILAR TO DRUG-DRUG CLASS OR METABOLITE IN CONC. EQUAL TO OR EXCEEDING VALUES LISTED. BENZODIAZEPINES 200 NG/ML Specimen Urine - Urine Performing Organization [facility] one Number MAIN LAB [address] [place] [address] * BARBITURATES-URINE RANDOM (02/21/2020 3:00 AM CDT) Barbiturates,Ur NEG NEG-NEG MAIN LAB ine Comment: RESULTS WERE OBTAINED BY IMMUNOASSAY AND ARE PRESUMPTIVE ONLY. POSITIVE INDICATES THE PRESENCE OF SUBSTANCE WITH CHARACTERISTICS SIMILAR TO DRUG-DRUG CLASS OR METABOLITE IN CONC. EQUAL TO OR EXCEEDING VALUES LISTED. BARBITURATES 200 NG/ML Specimen Urine - Urine Performing Organization [facility] Ph one Number MAIN LAB [address] [place] [address] * AMPHETAMINES-URINE RANDOM (02/21/2020 3:00 AM CDT) Amphetamines NEG NEG-NEG MAIN LAB Comment: RESULTS WERE OBTAINED BY IMMUNOASSAY AND ARE PRESUMPTIVE ONLY. POSITIVE INDICATES THE PRESENCE OF SUBSTANCE WITH CHARACTERISTICS SIMILAR TO DRUG-DRUG CLASS OR METABOLITE IN CONC. EQUAL TO OR EXCEEDING VALUES LISTED. AMPHETAMINES 1000 NG/ML Specimen Urine - Urine Performing Organization [facility] Ph one Number MAIN LAB [address] [place] [address] * TELEMETRY STRIPS-SCAN (02/20/2020 12:00 AM CDT) Narrative Performed At This result has an attachment that is n ot available. Ordered by an unspecified provider. 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 03/28/2020 5:04 PM Full Code 03/22/2020 3:00 [...]
--- OUTSIDE RECORDS SUMMARY | 2020-05-03 11:25 | XMS REPORT | Encounter Summary ---
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 is high because of the multi-system nature of disease process. Subjective: Patient reports that he still have some dizziness when he stands up but overall feels better than yesterday. Still has general weakness and fatigue Still has intermittent headache. ROS: Denies: fever, chills, chest pain, dyspnea, nausea, vomiting, diarrhea, abdomina l pain. Medications: Scheduled Meds:amiodarone (CORDARONE) tablet 200 mg, 200 mg, Oral, TID apixaban (ELIQUIS) tablet 5 mg, 5 mg, Oral, BID atorvastatin (LIPITOR) tablet 40 mg, 40 mg, Oral, QDAY levothyroxine (SYNTHROID) tablet 50 mcg, 50 mcg, Oral, QDAY 30 min before breakf ast melatonin tablet 5 mg, 5 mg, Oral, QHS senna (SENOKOT) tablet 1 tablet, 1 tablet, Oral, BID Continuous Infusions: PRN and Respiratory Meds:ALPRAZolam TID PRN, oxyCODONE/acetaminophen Q6H PRN, pr ochlorperazine Q6H PRN Objective: Vitals: Vital Signs: Last Filed Vital Signs: 24 Collins r Range BP: 111/72 (04/08 1517) Temp: 36.4 C (97.6 F) (04/08 1517) Pulse: 81 (04/08 1517) Respirations: 18 PER MINUTE (04/08 1517) SpO2: 97 % (04/08 1517) BP: (95-127)/(60-86) Temp: [36.4 C (97.6 F)-36.8 C (98.3 F)] Pulse: [72-91] Respirations: [16 PER MINUTE-18 PER MINUTE] SpO2: [96 %-100 %] Intensity Pain Scale (Self Report): 5 (04/08/20 1323) Vitals: 04/07/20 0058 Weight: 108.5 kg (239 lb 3.2 oz) Intake/Output Summary: (Last 24 hours) Intake/Output Summary (Last 24 hours) at 04/08/2020 1527 Last data filed at 04/08/2020 1518 Gross per 24 hour Intake 3840.67 ml Output 625 ml Net 3215.67 ml Stool Occurrence: 0 Physical Exam: GEN: Alert and oriented x 4, no acute distress, cooperative. ENT: Oropharynx pink and moist. No erythema or exudate. PULM: Lungs, clear to auscultation bilaterally. No respiratory distress. CV: Regular rhythm. No murmurs noted. BUE/BLE pulses present. ABD: Soft, non-tender, non-distended. Bowel Sounds present. No rebound tendernes s, no guarding. EXT: No edema, no cyanosis. Lab Review: Recent Labs 04/07/20 0245 04/08/20 0447 NA 142 141 K 4.0 4.2 CL 109 109 CO2 25 23 GAP 8 9 BUN 11 13 CR 1.19 1.19 GLU 92 84 CA 9.1 9.0 ALBUMIN 3.5 3.4* MG 1.8 -- PO4 3.4 -- HGBA1C 5.6 -- TSH 8.22* -- Recent Labs 04/07/20 0245 04/07/20 0415 04/07/20 0630 04/08/20 0447 WBC 6.8 -- -- 6.7 HGB 11.3* -- -- 11.4* HCT 33.5* -- -- 34.1* PLTCT 538* -- -- 502* INR 1.4* -- -- -- AST 15 -- -- 15 ALT 19 -- -- 16 ALKPHOS 93 -- -- 95 TNI 0.05 0.05 0.04 -- Estimated Creatinine Clearance: 83 mL/min (based on SCr of 1.19 mg/dL). Vitals: 04/07/20 0058 Weight: 108.5 kg (239 lb 3.2 oz) No results for input(s): PHART, PO2ART in the last 72 hours. Invalid input(s): PC02A Microbiology - Resulted Micro Last 72 Hrs COVID-19 (SARS-COV-2) PCR Resulted: 04/07/20 0947, Result status: Final result Ordering provider: Antonella Warren MD 04/07/20210 Resulting lab: [facility] Specimen Information Source Collected On Nasopharyngeal Swab 04/07/20 0245 Components Component Value Flag COVID-19 (SARS-CoV-2) PCR Source NASOPHARYNGEAL SWAB COVID-19 (SARS-CoV-2) PCR NOT DETECTED Point of Care Testing (Last 24 hours) Glucose: 84 (04/08/20 0447) Radiology and other Diagnostics Review: Pertinent radiology reviewed. Esther Soto MD Pager [phone] * Ines Carrera RN - 04/08/2020 2:46 PM CDT [facility] notified this RN of blood culture results prior to transfer. 1 of 4 cultures growing coag negative staph. Dr. Soto notified and orders placed for rep eat cultures. * Leonela Doran PT - 04/08/2020 10:43 AM CDT PHYSICAL THERAPY ASSESSMENT Name: David Rice : 1960 Age: 59 y.o. Admission Date: 04/07/2020 LOS: 1 day Mobility Patient Turn/Position: Chair Progressive Mobility Level: Active transfer to chair Distance Walked (feet): 5 ft Level of Assistance: Assist X1 Assistive Device: Walker Time Tolerated: 0-10 minutes Activity Limited By: Weakness;Fatigue;Dizziness Subjective Significant hospital events: 59 y.o. 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 and hypothyroidism, and obesity who was transferred from outside hospital for [facility] evaluation of dizziness and presyncope Mental / Cognitive Status: Alert;Oriented;Cooperative;Follows Commands Pain: Patient has no complaint of pain Pain Interventions: Patient agrees to participate in therapy;Patient assisted in to position of comfort Comments: pt positive for orthostasis earlier this date - though RN reports pt s afely ambulating to/from bathroom with assistance Ambulation Assist: Independent Mobility at Household Level without Device Patient Owned Equipment: None Comments: Patient reports he has been progressively getting weaker in recent wee ks/months. States he has been crawling on his hands and knees at home due to we akness and fatigue. Pt voices interest in further therapy at discharge, with pos sible inpatient setting prior to home. ROM ROM Method: Active LE ROM: Bilateral;WFL Strength Overall Strength: Generalized Weakness Bed Mobility/Transfer Bed Mobility: Supine to Sit: Minimal Assist;Verbal Cues;Head of Bed Elevated;Use of Rail;Requires Extra Time;Safety Considerations;Assist with Trunk Transfer Type: Sit to/from Stand Transfer: Assistance Level: From;Bed;To;Bed Side Chair;Minimal Assist Transfer: Assistive Device: Roller Walker Transfers: Type Of Assistance: For Balance;For Strength Deficit;For Safety Consi derations;Requires Extra Time End Of Activity Status: Up in Chair;Nursing Notified;Instructed Patient to Reque st Assist with Mobility;Instructed Patient to Use Call Light(tabs alarm activate d) Balance Sitting Balance: Static Sitting Balance;Dynamic Sitting Balance;2 UE Support;Sta ndby Assist Standing Balance: Static Standing Balance;Dynamic Standing Balance;2 UE support; Minimal Assist Gait Gait Distance: 5 feet(to bedside chair) Gait: Assistance Level: Minimal Assist;Safety Considerations;Management of Lines Gait: Assistive Device: Roller Walker Gait: Descriptors: Pace: Slow;Forward trunk flexion;Decreased foot clearance RLE ;Decreased foot clearance LLE;No balance loss;Decreased step length Comments: Patient knees soft and shaky throughout upright posture. Pt reports a nd appears significantly fatigued upon sitting in bedside chair. Activity Limited By: Complaint of Fatigue;Weakness Education Persons Educated: Patient Patient Barriers To Learning: None Noted Teaching Methods: Verbal Instruction Patient Response: Verbalized Understanding Topics: Plan/Goals of PT Interventions;Use of Assistive Device/Orthosis;Mobility Progression;Safety Awareness;Up with Assist Only;Importance of Increasing Activ ity;Recommend Continued Therapy;Therapy Schedule Comments: Encouraged pt to continue mobility to tolerance with roller walker and staff assistance. Assessment/Progress Impaired Mobility Due To: Decreased Strength;Decreased Activity Tolerance;Safety Concerns;Impaired Balance;Deconditioning Impaired Strength Due To: Decreased Activity Tolerance;Deconditioning Assessment/Progress: Should Improve w/ Continued PT Patient requires minimal assistance and roller walker for all mobility this date . Limited due to dizziness, weakness, and reports of significant fatigue. Antic ipate patient would benefit from inpatient setting at discharge. PT to follow. AM-PAC 6 Clicks Basic Mobility Inpatient Turning from your back to your side while in a flat bed without using bed rails: A Little Moving from lying on your back to [...] Basic Mobility: CK Goals Goal Formulation: With Patient Time For Goal Achievement: 5 days Patient Will Go Supine To/From Sit: w/ Stand By Assist Patient Will Transfer Bed/Chair: w/ Stand By Assist Patient Will Transfer Sit to Stand: w/ Stand By Assist Patient Will Ambulate: Greater than 200 Feet, w/ Walker, w/ Stand By Assist Patient Will Go Up / Down Stairs: 3-5 Stairs, w/ Stand By Assist Plan Treatment Interventions: Mobility Training;Endurance Training;Balance Activities ;Strengthening Plan Frequency: 5 Days per Week PT Plan for Next Visit: progress upright tolerance, LE strengthening, endurance, balance assessment PT Discharge Recommendations Recommendation: Inpatient setting Patient Currently Requires Physical Assist With: All mobility;All personal care ADLs;All home functioning ADLs Therapist Leonela Doran, PT, DPT Date 04/08/2020 * Ines Carrera, RN - 04/08/2020 9:26 AM CDT 04/08/20 0838 04/08/20 0847 04/08/20 0852 Vitals Pulse 78 84 91 SpO2 98 % 100 % 96 % BP 107/60 123/86 97/73 Mean NBP (Calculated) 76 MM HG 98 MM HG 81 MM HG BP Source Arm, Left Upper Arm, Left Upper Arm, Left Upper BP Patient Position Supine Dangle Standing Please see orthostatic vital signs above. * Carolyn Caldera, GORDO - 04/07/2020 6:51 AM CDT Pt has had many various complaints throughout shift. Pt states having significan t worsening dizziness. Pt states has not been sleeping for the last several days due to concern related to heart condition. Pt states "I am afraid to go to slee p". Pt states dizziness worsens when closing eyes. This was reported to Dr Eloy valdez. CT head ordered and completed. Pt repeatedly assured that tele monitor would alarm if anything happened with heart rhythm overnight. Pt has been intermittent coughing with dry heaving and occasionally vomits a small amount. Dr Warren i nformed. Compazine ordered. Pt refused due to not wanting to take anything that would increase feelings of dizziness. Pt now states having significant chest avi n/pressure. States it feels "like something is sitting on it". Dr Warren inform ed and EKG ordered. This nurse asked patient if home dose of xanax would be help ful and patient refused stating that it would increase dizziness and would be us eless since someone would surely be in to wake him up soon. Troponins and vital signs have all been within normal limits. Will pass to day shift. * Carolyn Caldera RN - 04/07/2020 3:28 AM CDT Patient arrived to room # 7103 via cart accompanied by EMS. Patient transferred to the bed with and without assistance. Bedside safety checks completed. Initial patient assessment completed. Refer to flowsheet for details. Admission skin assessment completed with: GORDO Paige Pressure injury present on arrival?: No 1. Head/Face/Neck: No 2. Trunk/Back: No 3. Upper Extremities: No 4. Lower Extremities: No 5. Pelvic/Coccyx: No 6. Assessed for device associated injury? Yes 7. Malnutrition Screening Tool (Nursing Nutrition Assessment) Completed? Yes See Doc Flowsheet for additional wound details. INTERVENTIONS: documented in this encounter H&P Notes * Tammi Ruiz MD - 04/07/2020 1:42 AM CDT ATTESTATION I personally performed the sagastume portions of the E/M visit, reviewed my colleague' s documentation of history, physical exam, assessment, and treatment plan and co ncur unless otherwise noted. Updates to the assessment/plan include: Lightheadedness - Reports headache is a little better but dizziness is the same. Does not describe vertigo but was not agreeable to vestibular maneuvers. Uncont rolled anxiety can certainly cause dizziness too. Await telemonitoring and cardi ac evaluation. Peripheral vasodilation from cardiac meds must be considered as w ell, but will wait for cardiac evaluation. Staff name: Tammi Ruiz MD Date: 04/07/2020 Med-private Team Q Team Pager [phone] Admission History and Physical Name: David Rice MRN: [id number] Admission Date: 04/07/2020 Admission Diagnosis: CHF Principal Problem: Syncope Active Problems: Essential hypertension Hyperlipidemia S/P ablation of atrial fibrillation Paroxysmal A-fib (HCC) Hypothyroid Chronic back pain Migraine History of pulmonary embolus (PE) Assessment/Plan: 59 y.o. male with PMH of A. fib s/p ablation, CHF, CAD, hypothyroidism, hyperlip idemia, chronic back pain, migraines and history of PE who transferred from [facility] for evaluation of syncope. Syncope Dizziness Patient was recently discharged from [facility] earlier this week fo r treatment of CHF. He presented to the same hospital yesterday with dizziness and syncopal episode while standing, generalized malaise and nausea. Patient st ates he felt weak and dizzy since discharge from [facility]. Uncle the syncopal episode could be 2/2 arrhythmia, orthostatic hypotension, vas ovagal, TIA, others Work-up done there showed CT head unremarkable, proBNP 1650, WBC 7.3, hemoglobin 11.6, platelet 617, sodium 142, K3.9, CO2 23, BUN 11, creatinine 1.3, lactate 2 .5, troponin negative and EKG showing sinus tach Recent echo on 03/18/2020 was eventually unremarkable Plan Monitor on telemetry Trend troponin, check electrolytes, thyroid and lipid panel, hemoglobin A1c Consult cardiology Severe dizziness and headaches Will repeat CT scan head, patient on anticoagulants to rule out hemorrhage Atrial fibrillation 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 V oalte is the preferred way of communication. Subjective: Primary Care Physician: Indiana Bauer Chief Complaint: No chief complaint on file. HPI: David Rice is a 59 y.o. male with PMH of A. fib s/p ablation, CHF, CAD, hypothyroidism, hyperlipidemia, chronic back pain, migraines and history of PE w ho transferred from [facility] for evaluation of syncope. Patient was recently discharged from [facility] earlier this week fo r treatment of CHF. He presented to the same hospital yesterday with dizziness and syncopal episode while standing, generalized malaise and nausea. Patient st ates he felt weak and dizzy since discharge from [facility]. Dizziness is worse with standing and activity. He is compliant with all his medications and is cu rrently on amiodarone and Eliquis. He denies exertional chest pain and exertion al shortness of breath. Denied any fever, vomiting. No increase in his leg avi n or swelling. Patient was tachycardic and hypotensive there received IV fluid hydration with i mprovement in his vitals. Medical History: Diagnosis Date Arrhythmia Atrial fibrillation [...] 05/25/2019 Performed by Kelby Rodriguez MD at [facility] EP [facility] Family History Problem Relation [...] file Social History Narrative Not on file Allergies Allergen Reactions Contrast Dye Iv, Iodine Containing [Iodinated Contrast Media] NAUSEA AND VOM ITING Patient states he feels nausea, headache, dizzy, hot ("like it will blow his h ead up"), and like he will throw up when he receives contrast dye. Review of Systems System Positives Negatives Constitutional: Fever, chills, unintentional weight loss Eyes: Diplopia, blurry vision ENT: Congestion, sinus pain, ear pain, ear discharge Respiratory: Cough, Shortness of breath Cardiovascular: Palpitations, claudication, Chest pain Gastrointestinal: Vomiting, abdominal pain, hematemesis, melena Genitourinary: Dysuria, blood in urine, incontinence Hematologic: Bleeding dyscrasias, easy bruising Musculoskeletal: Arthralgias, myalgias, joints swelling, joints erythema Neurological: Headache, numbness, tingling, loss of consciousness, seizures, t remors Behavioral/Psych: Suicidal ideation, hallucinations Skin: Rash, itching, skin abrasions, infected skin lesions Objective: Vital Signs: Last Filed In 24 Hours Vital Signs: 24 Hour Range BP: 117/70 (04/07 130) Temp: 36.9 C (98.5 F) (04/07 58) Pulse: 80 (04/07 130) Respirations: 16 PER MINUTE (04/07 130) SpO2: 95 % (04/07 130) Height: 182.9 cm (72") (04/07 58) BP: (117-132)/(70-87) Temp: [36.9 C (98.5 F)] Pulse: [80-82] Respirations: [16 PER MINUTE-18 PER MINUTE] SpO2: [95 %-99 %] PHYSICAL EXAMINATION: General Appearance: Cooperative, NAD Head: NC/AT Neck: no JVD; no LAD Eyes: Conjunctivae/corneas clear. PERRL, EOMs intact. Lungs: CTAB Heart: RRR, no m/r/g Abdomen: Soft, NT, +BS Extremities: Atraumatic, no C/C/E Pulses: +2 in all extremities Neurologic: A, OX3, CNII - XII grossly intact; no gross focal deficits LABS: No results for input(s): NA, K, CL, CO2, GAP, BUN, CR, GLU, CA, ALBUMIN, MG, PO4 , HGBA1C, TSH, JOELLE in the last 72 hours. No results for input(s): WBC, HGB, HCT, PLTCT, PT, INR, PTT, AST, ALT, ALKPHOS, CKMB, MYOGLB, TNI in the last 72 hours. Estimated Creatinine Clearance: 97.8 mL/min (based on SCr of 1.01 mg/dL). Vitals: 04/07/2057 Weight: 108.5 kg (239 lb 3.2 oz) No results for input(s): PHART, PO2ART in the last 72 hours. Invalid input(s): PC02A MEDS IV MEDS Prn HOME MEDS No current facility-administered medications on file prior to encounter. Current Outpatient Medications on File Prior to Encounter Medication Sig Dispense Refill acetaminophen (TYLENOL) 325 mg tablet Take two tablets by mouth every 4 hour s as needed. This medication may be purchased from over the counter from your [facility] pharmacy ALPRAZolam (XANAX) 1 mg tablet Take one tablet by mouth three times daily as needed for Anxiety. (Patient taking differently: Take one-half tablet by mouth every morning, and one tablet at night.) amiodarone (CORDARONE) 200 mg tablet Take three tablets by mouth daily for 1 4 days, THEN one tablet twice daily for 90 days, THEN one tablet daily for 90 da ys. Take 600mg q day for 2 weeks,on 04/20/2020 then take 400mg q day for 3 months. On 07/21/2020, take 200mg q day. Take with food. 312 tablet 0 apixaban (ELIQUIS) 5 mg tablet Take one tablet by mouth twice daily. 60 tabl et 1 atorvastatin (LIPITOR) 40 mg tablet Take one tablet by mouth daily. 90 table t 0 dilTIAZem CD (CARDIZEM CD) 120 mg capsule Take one capsule by mouth daily. 9 0 capsule 0 furosemide (LASIX) 20 mg tablet Take one tablet by mouth twice daily. 60 tab let 1 levothyroxine (SYNTHROID) 50 mcg tablet Take 50 mcg by mouth daily 30 minute s before breakfast. lisinopriL (ZESTRIL) 10 mg tablet Take one tablet by mouth daily. 90 tablet 3 melatonin 5 mg tab Take one tablet by mouth at bedtime daily. [facility] automatic blood pressure machine to monito r VS daily. 1 each 0 oxyCODONE (ROXICODONE) 10 mg tablet Take one tablet by mouth every 12 hours as needed 12 tablet 0 senna (SENOKOT) 8.6 mg tablet Take one tablet by mouth twice daily. traZODone (DESYREL) 50 mg tablet Take one tablet by mouth at bedtime as need ed. 30 tablet 0 No results found. documented in this encounter Consult Notes * Jorgito Petit MD - 04/17/2020 10:20 AM CDT Associated Order(s): CONSULT REHABILITATION MEDICINE PHYSICIAN Physical Medicine & Rehabilitation Consult Service Name: David Rice : 1960 Age: 59 y .o. Admission Date: 04/07/2020 LOS: 0 Date of Service: 04/17/20 Financial Class: Payor: Payor: A[employer] MEDICAID / Plan: AETNA [employer] [place] / P roduct Type: *No Product type* / Referring Physician: Danny Sue MD Reason for Consult: evaluate for Post-Acute Rehab/Placement Precautions: Fall Weight Bearing Precautions: WBAT Active Problems Patient Active Problem List Diagnosis Date Noted Contamination of blood culture 04/08/2020 Syncope 04/07/2020 Septic shock ([facility]) 03/16/2020 E. coli sepsis ([facility]) 03/16/2020 Type 2 NSTEMI (non-ST elevated myocardial infarction) ([facility]) 02/21/2020 Chronic headaches 02/21/2020 Paroxysmal A-fib ([facility]) 02/02/2020 Atypical chest pain 02/02/2020 Hypothyroid 02/02/2020 Chronic back pain 02/02/2020 Migraine 02/02/2020 Anxiety 02/02/2020 History of pulmonary embolus (PE) 02/02/2020 Atrial flutter with rapid ventricular response ([facility]) 01/18/2020 Acute pericarditis 06/03/2019 STEPH (acute kidney injury) ([facility]) 06/03/2019 Chest pain on breathing 05/30/2019 Essential hypertension 12/14/2018 Hyperlipidemia 12/14/2018 S/P ablation of atrial fibrillation 12/14/2018 Gait abnormality 04/17/20 Impaired mobility/ADLs 04/17/20 Impaired transfers 04/17/20 Assessment & Plan David Rice is a 59 y.o. male admitted to [facility] on 04[facility]07/2020 with the following issues: Debility due to pre-syncope Recommendations: Post-acute care rehabilitation needs: subacute rehabilitation This patient likely has goals in at least two out of the three therapeutic disci plines but currently lacks significant acute medical complexity to warrant daily physician oversight at an acute inpatient rehab level of care. Subacute rehabil itation (SNF) may be most appropriate at this time. Impairments: poor activity tolerance and weakness Activity Limitations: toileting, transfers, ambulation and stairs Participation Restrictions: unable to return home safely Family / Patient Dispositional Goals: return home to previous level of function Overall Functional Goals Gait and mobility Mod I RW Transfers Mod I RW ADLs Mod I Cognition / Communication Cognition grossly intact and Speech intact Barriers/Facilitators: Barriers: High burden of care and Poor strength/endurance Facilitators: improving strength / endurance and improving medical condition Rehabilitation Prognosis: Good Tolerance for three hours of therapy a day: Good Thank you for this consultation. Please call our consult pager with questions o r concerns. Jorgito Petit MD Rehab Consult Pager: [phone] History of Present Illness Chief complaint: Dizziness Hospital Course: David Rice is a 59-year-old male with history of A. fib status post ablation on Eliquis, history of PE, heart failure, CAD, hypothyroidism, hyperlipidemia, a nd migraines who was admitted on 04/07 for syncopal work-up. Cardiology consulte d to aid in work-up and helped with medical optimization of his COMPUTER SECURITY SPECIALIST medications. His hospital course has been complicated by orthostatic hypotension requiring intravenous fluids and potential staph bacteremia for which she was on vancomyci n. He is currently being monitored off antibiotics. She did also have chest pa in which was found to be noncardiac. Prior to this admission, patient was living alone and independent with all ADLs and mobility. Currently, he is requiring minimal to moderate assist x2 for gait using a roller walker and minimal assist for most ADLs. Pt is working with PT and OT to address functional and mobility deficits, and re hab medicine is now consulted for post-acute rehab/placement recommendations. Patient denies F/C/N/V/D/SOB/CP. Medical History: Diagnosis Date Arrhythmia Atrial fibrillation [...] Kelby Rodriguez MD at 2 EP [facility] Social History Socioeconomic History Marital status: Single Spouse name: Not on file Number of children: Not on file Years of education: Not on file Highest education level: Not on file Occupational History Not on file Tobacco Use Smoking status: Former Smoker Types: Cigarettes Last attempt to quit: 1980 Years since quittin.6 Smokeless tobacco: Never Used Substance and Sexual Activity Alcohol use: No Drug use: No Sexual activity: Not on file Other Topics Concern Not on file Social History Narrative Not on file Family History Problem Relation Age of Onset Cancer Mother Cancer Father Family history: noncontributory Scheduled Meds:amiodarone (CORDARONE) tablet 200 mg, 200 mg, Oral, TID apixaban (ELIQUIS) tablet 5 mg, 5 mg, [...] tablet 25 mg, 25 mg, Oral, QHS Continuous Infusions: PRN and Respiratory Meds:acetaminophen Q6H PRN, ALPRAZolam TID PRN, aspirin/acet aminophen/caffeine Q6H PRN, oxyCODONE Q4H PRN, prochlorperazine Q6H PRN Allergies Allergen Reactions Contrast Dye Iv, Iodine Containing [Iodinated Contrast Media] NAUSEA AND VOM ITING Patient states he feels nausea, headache, dizzy, hot ("like it will blow his h ead up"), and like he will throw up when he receives contrast dye. Prior Level of Function Self-Care/ADLs: Independent Mobility: independent at community level without assistive device Home Environment: Home Situation: Lives Alone (03/26/2020 10:00 AM) Patient Owned Equipment: None (04/16/2020 10:00 AM) Type of Home: House (03/27/2020 10:00 AM) Entry Stairs: 1-2 Stairs (03/26/2020 10:00 AM) No data recorded Comments: Patient reports he has been progressively getting weaker in recent wee ks/months. States he has been crawling on his hands and knees at home due to we akness and fatigue. Pt voices interest in further therapy at discharge, with pos sible inpatient setting prior to home. (04/16/2020 10:00 AM) No data recorded Current Level Of Function: PT Gait Distance: 85 feet Gait: Assistance Level: Moderate Assist, of 1st person , Safety Considerations, of 2nd person(Mostly mod., but periods of mod; chair fo llow) Gait: Assistive Device: Roller Walker Bed Mobility/Transfers Bed Mobility: Supine to Sit: Head of Bed Elevated, Standby Assist Bed Mobility: Sit to Supine: Standby Assist, HOB Elevated, Use of Rail, Requires Extra Time Comments: Reported dizziness at EOB (10/30) but stated it improved after a few mi n. Denied dizziness upon standing/with walking but notable, progressing sway du ring activity. Cues to evenly destribute weight through feet (vs. through heels ). Transfer Type: Sit to/from Stand Transfer: Assistance Level: Bed, To, Bed Side Chair, Moderate Assist, of 1st per son Transfer: Assistive Device: Roller Walker Transfers: Type Of Assistance: For Balance, For Strength Deficit, For Safety Con siderations, Requires Extra Time End Of Activity Status: In Bed, Nursing Notified, Instructed Patient to Request Assist with Mobility, Instructed Patient to Use Call Light(bed alarm activated) Comments: Pt requires minimal assistance throughout stand as well as with initia l balance as he is consistently retropulsive upon standing. OT ADL's Where Assessed: Chair Eating Assist: Independent Eating Deficits: No Assist Needed Grooming Assist: Minimal Assist Grooming Deficits: Steadying, Wash/Dry Face, Shaving LE Dressing Assist: Stand By Assist LE Dressing Deficits: Setup, Don/Doff R Sock, Don/Doff L Sock Toileting Assist: Minimal Assist Toileting Deficits: Setup, Steadying, Verbal Cueing, Supervision/Safety, Increas ed Time To Complete, Grab Bar Use Comment: Standing at sink to shave and wash face with minimal assist, cuing to u se walker as needed for balance EXECUTIVE PRODUCER PROMOS COGNITIVE EVALUATION SUMMARY PRAGMATICS: BEHAVIOR: AUDITORY COMPREHENSION: ORIENTATION: AUDITORY ATTENTION/WORKING MEMORY: AUDITORY MEMORY/SUSTAINED ATTENTION: NEW LEARNING: SEQUENCING/ORGANIZATION: PROBLEM SOLVING: REASONING: MATH/MONEY SKILLS: VISUAL PERCEPTUAL: SWALLOW EVALUATION SUMMARY Review of Systems A 14 point review of systems was negative except for: that noted in the HPI Physical Exam BP: 100/63 (07/29 0754) Temp: 36.8 C (98.2 F) (04/17 754) Pulse: 72 (04/17 754) Respirations: 18 PER MINUTE (04/17 754) SpO2: 99 % (04/17 754) Body mass index is 32.44 kg/m. Gen: awake, alert, NAD HEENT: NCAT, EOMI, MMM Neck: Supple and symmetric Heart: Extremities are well perfused Lungs: respirations even and non-labored Abdomen: Soft, non-distended Psych: pleasant mood/appropriate affect Ext: No c/c/e MS: Root Right Left Shoulder Abduction C5 5 5 Elbow Flexion C5 5 5 Wrist Extension C6 5 5 Elbow Extension C7 5 5 Finger Flexion C8 5 5 Finger Abduction T1 5 5 Hip Flexion L2 5* 5* Knee Extension L3 5* 5* Dorsiflexion L4 5* 5* EHL Extension L5 5* 5* Plantarflexion S1 5* 5* *significant give-way weakness noted throughout bilateral LEs suspected due to l ack of effort, but seems to be full strength at maximum effort. Neuro: Cranial Nerves Cranial Nerves 2-12 are grossly intact Upper Extremity Sensation Intact to light touch bilaterally Lower Extremity Sensation Intact to light touch bilaterally Clonus Negative Bilaterally Memory/Concentration grossly intact Intake/Output Summary (Last 24 hours) at 04/17/2020 1020 Last data filed at 04/17/2020 0754 Gross per 24 hour Intake 960 ml Output 1100 ml Net -140 ml Hematology: Lab Results Component Value Date HGB 10.6 04/17/2020 HCT 31.7 04/17/2020 PLTCT 317 04/17/2020 WBC 6.6 04/17/2020 NEUT 55 04/17/2020 ANC 3.66 04/17/2020 LYMPH 5 03/19/2020 ALC 1.73 04/17/2020 FARHAN 13 04/17/2020 AMC 0.87 04/17/2020 ABC 0.07 04/17/2020 MCV 82.8 04/17/2020 MCHC 33.5 04/17/2020 MPV 8.1 04/17/2020 RDW 15.0 04/17/2020 , Coagulation: Lab Results Component Value Date PTT 20.7 03/16/2020 INR 1.4 04/07/2020 General Chemistry: Lab Results Component Value Date NA 138 04/17/2020 K 4.2 04/17/2020 CL 105 04/17/2020 GAP 6 04/17/2020 BUN 10 04/17/2020 CR 1.25 04/17/2020 GLU 97 04/17/2020 GLU 99 05/19/2019 CA 8.7 04/17/2020 ALBUMIN 3.4 04/10/2020 OBSCA 1.20 03/18/2020 MG 1.8 04/07/2020 TOTBILI 0.3 04/10/2020 Radiology: Reviewed Ct Head Wo Contrast Result Date: 04/07/2020 EXAM: CT HEAD HISTORY: Male, 59 years old, Headache, loss of consciousness. Trau ma 24 hours ago or more. TECHNIQUE: Multiple contiguous axial images were obtain ed of the brain without intravenous contrast. COMPARISON: None FINDINGS: The ankit tricles and subarachnoid spaces are normal in size and configuration. There is no midline shift or mass effect. The lópez white matter interfaces are maintained . The basal cisterns are patent. There is no evidence of acute intracranial hemo rrhage or extra-axial fluid collection. 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 Additional areas of predominantly sclerotic heterogeneous bone are seen within the right frontal calvarium and right sphenoid wing. IMPRESSION: 1. No acute intracranial hemorrhage or mass effect. 2. 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 By my electronic signature, I attest that I have personally reviewed the image s for this examination and formulated the interpretations and opinions expressed in this report Finalized by Stephen Huerta MD, PhD on 04/07/2020 6:21 AM. Di ctated by Errol Sandy MD on 04/07/2020 6:05 AM. Chest Single View Result Date: 03/22/2020 CHEST SINGLE VIEW Clinical Indication: Increasing oxygen requirements. Compariso n: Chest radiograph from 03/20/2020. CT chest/abdomen/pelvis from 03/16/2020. Findi ngs: Interval removal of endotracheal and gastric tubes. Surgical clips overlie the left upper quadrant of the abdomen. Stable cardiomediastinal configuration. Slight decrease in bibasilar pulmonary opacities and small pleural effusions. No pneumothorax. Persistent small pleural effusions with slight decrease in bibasilar opacities. By my electronic signature, I attest that I have personally reviewed the images for this examination and formulated the interpretations and opinions expressed i n this report Finalized by JACQUI OBREGON M.D. on 03/22/2020 7:44 AM. Dictated by Patrick Ward MD on 03/22/2020 7:17 AM. Chest Single View Result Date: 03/20/2020 CHEST SINGLE VIEW Indication: intubated, hypoxia, follow up effusions. Compariso n: March 18, 2020 Findings: The heart and pulmonary vasculature are similar in ap pearance. There are persistent bilateral pleural effusions with adjacent opaciti es, compatible with atelectasis and/or pneumonia. No pneumothorax is identified. ET and NG tubes appear in similar positions. There is interval removal of the r ight IJ catheter. Similar appearance of the chest with persistent bilateral pleural effusions with adjacent opacities, compatible with atelectasis and/or pneumonia. Finalized by Reina Stack M.D. on 03/20/2020 9:18 AM. Dictated by Reina Stack M.D. on 9:[address] Head External Imaging Result Date: 04/10/2020 This order has been auto finalized and does not contain a result. General Rad Chest External Imaging Result Date: 04/10/2020 This order has been auto finalized and does not contain a result. Regadenoson Mpi Stress Test Result Date: 03/27/2020 Nuclear Report [facility] Division of Nuclear Card iac Imaging Consultation Report EXAMINATION: D-SPECT Gated [id number] Chlor jacinto myocardial perfusion single-photon emission computed tomography for viabilit y, resting regional wall function, resting ejection fraction, and perfusion imag ing utilizing Regadenoson pharmacological stress. Date of Study: 03/27/20 Stud y #: [id number] CATRINA CATRINA Billing ID: [id number] Referring Physician: Requested by: Jaylene Cloud MD BMI: 28.32 kg/m2 INDICATIONS FOR STUDY (HISTORY): This is a 59 year old male with a history of acute encephalopa thy/delirium, and acute respiratory failure with hypoxemia/hypercarbia, severe s epsis, history of paroxysmal atrial fibrillation, type II non-ST segment elevati on myocardial infarction, acute renal injury, essential hypertension, pulmonary embolism, and chronic lower back pain. This study is being done to rule out sig nificant myocardial ischemia. PROCEDURAL DETAILS: Initially, the patient receiv ed a 5 ml intravenous infusion of Regadenoson at 0.08 mg/ml over 10 to 15 second s. Approximately 20 seconds later 1.8 mCi of [id number] was injected in travenously. Throughout the infusion continuous electrocardiographic monitoring and serial electrocardiograms were obtained, as well as intermittent blood press ure recordings. Gated upright D-SPECT tomographic images were then acquired danyel roximately 5 minutes after discontinuation of the regadenoson infusion. When ind icated supine D-SPECT images were also obtained. The patient returned in appr oximately 4 hours and received an additional intravenous injection of 0.55 mCi o f [id number] Chloride as a reinjected dose to assist in the detection of myocar dial ischemia and viability. Images were then reacquired and compared to post s tress images. FINDINGS: Pharmacological Stress Electrocardiogram: The patie nt's resting heart rate was 92 bpm and the resting blood pressure was 125/83. T he patients peak stress heart rate was 97 bpm and the peak stress blood press ure was 147/80. The patient experienced severe and nausea. The resting ECG martina ws sinus rhythm. Following Regadenoson infusion there are no new diagnostic ECG changes and there is no significant ectopy. Conclusion: Pharmacologic stress E CG is negative for ischemia. Ajjfwahuk-ax-Noggtmnqwu Count Ratio: 0.36 (nor mal = or < 0.52). Scintigraphic Findings: Raw images reveal the left ventricular cavity is normal in size. There is normal pulmonary tracer uptake. There is no significant attenuation present. No transient ischemic dilation is present. Tomographic images were reconstructed in three orthogonal views. There is normal homogenous uptake of thallium in all myocardial segments. There are no perfusion defects. All myocardial segments appear viable. Polar coordinate map identifies no perfusion abnormalities. TID Ratio: 1.09 (normal <1.36). Summed Stress Score: 3 , Summed Rest Score: 0 Regional Wall Thickening and Motion Post Stress: There is normal left ventricular wall motion and thi ckening of all myocardial segments. Left Ventricular Ejection Fraction = 51 %. Left Ventricular End Diastolic Volume: 92 mL SUMMARY/OPINION: This study is probably normal with no evidence of significant myocardial ischemia. Left ventr icular systolic function is normal. There are no high risk prognostic indicators present. The pharmacologic ECG portion of the study is negative for ischemia. There are no prior studies available for comparison. In aggregate the current st udy is low risk in regards to predicted annual cardiovascular mortality rate. Jorgito Petit MD Associated attestation - Michael Caldera MD - 04/18/2020 9:49 AM CDT Rehabilitation Medicine Attending Physician Attestation: I personally performed sagastume portions of the history and exam. I discussed the shaka e with the resident and agree with the resident's documentation of history, phys ical assessment and treatment plan unless otherwise noted. Thank you for allowing us to participate in the care of this patient. Michael Caldera MD 04/18/2020 9:49 AM Attending physician * Katie Brito APRN-CNS - 04/15/2020 12:17 PM CDT Associated Order(s): CONSULT CUT OFF MACHINE OPERATOR, SECURITY ARCHITECT; CONSULT CUT OFF MACHINE OPERATOR, SECURITY ARCHITECT Inpatient Psychiatric Clinical Nurse Specialist- Initial Consult Pt. Name: David Rice Room: [place] [address] LOS: 0 Reason for consult: Pt stated he was lonely and would like to have someone to t alk with. Patient relations informed me that son had passed last time he was her e and was buried while patient was in the hospital. Patient was unable to say go odbye. Interventions that would be helpful: abrasive coating machine operator attempted to see patient- he wasn' t interested. Has been flirtatious with some of our female nurses. Mahogany Medina RN set boundari es with him. (see note of 04/13/2020 This service is not able to enter orders. Primary team is responsible for enteri ng orders. Summary 59 y.o. male with PMH of A. fib s/p ablation, CHF, CAD, hypothyroidism, hyperlip idemia, chronic back pain, migraines and history of PE who transferred from [facility] for evaluation of syncope. I appreciate being invited to participate in this patient's care. Call or page i f there are any concerns or questions. Katie Brito [facility] Office [phone] * Denice Gomez - 04/15/2020 7:57 AM CDT Associated Order(s): CONSULT ABRASIVE COATING MACHINE OPERATOR; CONSULT ABRASIVE COATING MACHINE OPERATOR Ball Winder Note: refer to not made by this abrasive coating machine operator on 04/13/20 at 1224 Admit Date: 04/07/2020 Date/Time: User: Pager: [phone] 04/15/2020 7:58 AM Denice Gomez PCU 2 PCU The spiritual care team is available as needed, 12/04, through the [employer] ([phone]). For immediate response, please page [phone]. For a response within 24 hours, please submit an order in O2 for a abrasive coating machine operator consult. * Cammy Winn MBBS - 04/07/2020 11:42 AM CDT Associated Order(s): CONSULT CARDIOLOGY PHYSICIAN Cardiovascular Consultation Note Patient Name: David Rice Age: 59 y.o. Sex: male Reason for consultation: Presyncope Assessment / PLAN: Principal Problem: Syncope Active Problems: Essential hypertension Hyperlipidemia S/P ablation of atrial fibrillation Paroxysmal A-fib (HCC) Hypothyroid Chronic back pain Migraine History of pulmonary embolus (PE) David Rice is a 59 y.o. 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 Cardiology was consulted for further evaluatio n and management. #Presyncope #Lightheadedness and dizziness -Patient described orthostatic symptoms since was discharged from the last hospi talization (he had acute hypoxic respiratory failure required intubation and ICU stay. Had sepsis secondary to E. coli urinary tract infection and possible pne umonia). -Blood pressure in the 100-130s range. -His symptoms are likely orthostatic hypotension. Telemetry reviewed which show ed normal sinus rhythm in 70s to 90s beats per minutes. -Negative troponin x3. -Patient appears euvolemic on exam. -We recommend discontinuing lisinopril 10 mg daily as he is already on diltiazem CD 120 mg daily, amiodarone and Lasix. -Check orthostatic vital signs. #Paroxysmal atrial fibrillation #Paroxysmal supraventricular tachycardia -Status post ablation on 05/2019. -Patient hasCHADS VASC score of 1.Patient is on anticoagulation for mesent seth vein thrombosis also. -COMPUTER SECURITY SPECIALIST diltiazem CD 120 mg daily, Eliquis 5 mg p.o. twice daily and amiodarone 200 mg 3 times daily until 04/17, then should be on 400 mg daily until 07/18, then s hould be on 200 mg daily thereafte #Nonobstructive coronary artery disease -Echocardiogram 03/18/2020 shows normal LVEF of 60% with no left ventricular wall motion abnormalities. -Pharmacological nuclear stress test on 03/27/2020 was probably normal with no miri dence of significant myocardial ischemia. -Troponins were negative x3 this hospitalization. -Denies anginal chest pain currently. Recommendations/Plan -Check orthostatic vital signs. -Discontinue lisinopril 10 mg daily. Order is in. Monitor blood pressure. Can restart small dose of 2.5 mg p.o. daily if needed for blood pressure control. -Patient is currently on amiodarone 200 mg 3 times daily until 04/17, then should be on 400 mg daily until 07/18, then should be on 200 mg daily thereafter. -Continue Eliquis 5 mg p.o. twice daily. Continue the rest of his cardiac medic ations. -Cardiology outpatient follow-up with his primary route relief driver, Dr. Rodriguez. -Inpatient cardiology service will sign off at this time. Please reconsult us w ith any question. It was a pleasure taking care of David Rice. Please feel free to contact me during 8 AM to 6 PM and kindly contact eduardo angel fellow between 6 PM to 8 AM, if you have any questions. Patient was seen, examined and management plan discussed with Dr. Miller. Gloria Winn, Fellow, cardiovascular medicine Pager: [phone] History of Present Illness: David Rice is a 59 y.o. 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 Patient was recently hospitalized at [facility] with severe sepsis secondary to E. col i urinary tract infection and pneumonia in the ICU. Patient had atrial fibrilla tion with rapid ventricular rate and SVT during that admission. Patient was omega morales on amiodarone drip and then switched to p.o. (patient was started on amiodar one p.o. prior to that admission). Patient also was started on diltiazem CD 120 mg daily for episodes of SVTs. Patient was discharged home. Patient lives alone. He reports that since he was last discharged, he feels fat igued and debilitated. He reports lightheadedness and dizziness when he stands up from sitting position and when walk around. He reports he almost blacked out but he never lost consciousness. He reports that he had decreased appetite and decreased p.o. intake due to some abdominal pain since discharge. He went to [facility] last week for heart failure exacerbation and was discharged back home. He went back yesterday to the emergency department for lightheadedness a nd dizziness and was transferred to [facility] for further care. Patient denies any chest pain, apnea, paroxysmal nocturnal dyspnea, leg swelling . Patient reports compliance with his medications. His cardiac medications includ e diltiazem CD 120 mg daily, Lasix 20 mg twice daily, amiodarone 200 mg p.o. 3 t imes daily, Eliquis 5 mg twice daily, atorvastatin 40 mg daily and lisinopril 10 mg daily. Patient denies tobacco smoking, alcohol drinking or illicit drug use. Patient sees Dr. Emmanuel in the outpatient setting. Last was seen on 03/01/2020. Cardiographics: ECG: Normal sinus rhythm, heart rate 78 bpm, incomplete right bundle branch bloc k and left anterior fascicular block Telemetry (personally reviewed): Normal sinus rhythm with heart rate in the 70s to 90s beats per minute Echocardiogram: 03/18/2020 1. No regional wall motion [...] diameter. 7. No pericardial effusion is seen. Myocardial perfusion imaging: Done in 03/27/2020 SUMMARY/OPINION:This study is probably normal with no [...] to predicted annual cardio vascular mortality rate. ROS: A 12 point review of systems has was reviewed and is negative except as per the history of present illness. Medical History: Diagnosis Date Arrhythmia Atrial fibrillation [...] 05/25/2019 Performed by Kelby Rodriguez MD at [facility] EP [facility] TRANSESOPHAGEAL ECHOCARDIOGRAM DURING INTERVENTION N/A 05/25/2019 Performed by Kelby Rodriguez MD at [facility] EP [facility] Social History Socioeconomic History [...] Age of Onset Cancer Mother Cancer Father Allergies Allergen Reactions Contrast Dye Iv, Iodine Containing [Iodinated Contrast Media] NAUSEA AND VOM ITING Patient states he feels nausea, headache, dizzy, hot ("like it will blow his h ead up"), and like he will throw up when he receives contrast dye. Medications Prior to Admission Medication Sig Dispense Refill Last Dose acetaminophen (TYLENOL) 325 mg tablet Take two tablets by mouth every 4 hour s as needed. This medication may be purchased from over the counter from your [facility] ALPRAZolam (XANAX) 1 mg tablet Take one tablet by mouth three times daily as needed for Anxiety. (Patient taking differently: Take one-half tablet by mouth every morning, and one tablet at night.) Unknown amiodarone (CORDARONE) 200 mg tablet Take three tablets by mouth daily for 1 4 days, THEN one tablet twice daily for 90 days, THEN one tablet daily for 90 da ys. Take 600mg q day for 2 weeks,on 04/20/2020 then take 400mg q day for 3 months. On 07/21/2020, take 200mg q day. Take with food. 312 tablet 0 apixaban (ELIQUIS) 5 mg tablet Take one tablet by mouth twice daily. 60 tabl et 1 Unknown atorvastatin (LIPITOR) 40 mg tablet Take one tablet by mouth daily. 90 table t 0 Unknown dilTIAZem CD (CARDIZEM CD) 120 mg capsule Take one capsule by mouth daily. 9 0 capsule 0 furosemide (LASIX) 20 mg tablet Take one tablet by mouth twice daily. 60 tab let 1 levothyroxine (SYNTHROID) 50 mcg tablet Take 50 mcg by mouth daily 30 minute s before breakfast. Unknown lisinopriL (ZESTRIL) 10 mg tablet Take one tablet by mouth daily. 90 tablet 3 Unknown melatonin 5 mg tab Take one tablet by mouth at bedtime daily. [facility] automatic blood pressure machine to monito r VS daily. 1 each 0 Unknown oxyCODONE (ROXICODONE) 10 mg tablet Take one tablet by mouth every 12 hours as needed 12 tablet 0 senna (SENOKOT) 8.6 mg tablet Take one tablet by mouth twice daily. traZODone (DESYREL) 50 mg tablet Take one tablet by mouth at bedtime as need ed. 30 tablet 0 PHYSICAL EXAM: BP 104/61 (BP Source: Arm, Left Lower) | Pulse 82 | Temp 36.7 C (98.1 F) | Ht 1.829 m (6') | Wt 108.5 kg (239 lb 3.2 oz) | SpO2 99% | BMI 32.44 kg/m General Appearance: no acute distress, full alert and oriented HEENT: unremarkable, moist mucous membranes Neck Veins: neck veins are flat, neck veins are not distended Carotid Arteries: normal carotid upstroke bilaterally, no bruits Respiratory: lungs clear to auscultation, no rales, rhonchi, or wheezing Cardiac Rhythm: regular rhythm and normal rate Cardiac Auscultation: Normal S1 & S2, no S3 or S4, no rub Murmurs: no cardiac murmurs Extremities: no lower extremity edema Abdominal Exam: soft, non-tender, no masses, bowel sounds normal Neurologic Exam: neurological assessment grossly intact Scheduled Meds:amiodarone (CORDARONE) tablet 200 mg, 200 mg, Oral, TID apixaban (ELIQUIS) tablet 5 mg, 5 mg, Oral, BID atorvastatin (LIPITOR) tablet 40 mg, 40 mg, Oral, QDAY levothyroxine (SYNTHROID) tablet 50 mcg, 50 mcg, Oral, QDAY 30 min before breakf ast lisinopriL (ZESTRIL) tablet 10 mg, 10 mg, Oral, QDAY melatonin tablet 5 mg, 5 mg, Oral, QHS senna (SENOKOT) tablet 1 tablet, 1 tablet, Oral, BID Continuous Infusions: sodium chloride 0.9 % infusion 75 mL/hr at 04/07/20 0420 LABORATORY, IMAGING AND CARDIAC TESTIN-hour labs: Hematology: Lab Results Component Value Date HGB 11.3 04/07/2020 HCT 33.5 04/07/2020 PLTCT 538 04/07/2020 WBC 6.8 04/07/2020 NEUT 58 04/07/2020 ANC 3.85 04/07/2020 LYMPH 5 03/19/2020 ALC 1.51 04/07/2020 FARHAN 14 04/07/2020 AMC 0.98 04/07/2020 ABC 0.09 04/07/2020 MCV 83.2 04/07/2020 MCHC 33.7 04/07/2020 MPV 8.5 04/07/2020 RDW 15.4 04/07/2020 , Coagulation: Lab Results Component Value Date PTT 20.7 03/16/2020 INR 1.4 04/07/2020 , General Chemistry: Lab Results Component Value Date NA 142 04/07/2020 K 4.0 04/07/2020 CL 109 04/07/2020 GAP 8 04/07/2020 BUN 11 04/07/2020 CR 1.19 04/07/2020 GLU 92 04/07/2020 GLU 99 05/19/2019 CA 9.1 04/07/2020 ALBUMIN 3.5 04/07/2020 OBSCA 1.20 03/18/2020 MG 1.8 04/07/2020 TOTBILI 0.4 04/07/2020 , Enzymes: Lab Results Component Value Date AST 15 04/07/2020 ALT 19 04/07/2020 ALKPHOS 93 04/07/2020 , Cardiac markers: Lab Results Component Value Date TNI 0.04 04/07/2020 and Mg and PO4: Lab Results Component Value Date MG 1.8 04/07/2020 Associated attestation - Cleveland Miller MD - 04/08/2020 7:48 AM CDT I personally performed the sagastume portions of the visit, discussed case with reside nt and concur with resident documentation of history, physical exam, assessment, and treatment plan unless otherwise noted. documented in this encounter Miscellaneous Notes * Case Mgmt DC Plan - Lula Prieto RN - 04/25/2020 3:45 PM CDT Nurse Case Management Note Interventions NC received a message from Maliha Hartman with patient's Medicaid plan [facility] home health services for the patient on 04/26/2020. [facility] called Maliha back and inquired as to why they were recommending home health services for the patient. Maliha indicated that now that the patient left the hospital AMA, his facility t hat accepted him will no longer take him for rehab. Maliha indicated that her medical cash poster suggested home health services for th e patient as an alternate. Informed Maliha that if patient wanted home health services, we would have to as k his PCP if she would be willing to follow home health and then find an agency willing to accept him. Maliha indicated to this [facility] that she had just contacted the patient prior to my phone call and he refused home health services with her and indicated he already had outpatient services arranged from his last hospital admission. [facility] will not be setting up home health services for the patient as he left the ospital AMA and already spoke to Maliha at his insurance indicating he did not w ant home services arranged. Lula Prieto RN, BSN Nurse Breaker Off [phone] * Case Mgmt DC Plan - Viri Mills LSCSW - 04/25/2020 2:15 PM CDT Case Management Progress Note NAME:David Rice : 959 AGE: 59 y.o. ADMISSION DATE: 04/07/2020 DAYS ADMITTED: LOS: 0 days Todays Date: 04/25/2020 Plan DC planning ongoing Interventions ? Support ? Info or Referral ? Discharge Planning Received a call from Elda with [facility], who reports pt called the facility last night to report he has been accused of inappropriate interactions with a nurse Elda calling to ask if this is accurate BREE explained floor staff has reported pt has been inappropriate with them but not aggressive/violent Elda thanked SW for information Elda called back to report she has spoken with her team and in lieu of the new information they no longer feel they can meet pt's needs Team advised via [employer] Called pt to advise [facility] can no longer admit Pt stated he called the facility "because I thought they should know about th e accusation" Pt denies any inappropriate interaction with staff Asked pt how he wanted to proceed with d/c planning and he said he didn't kno w BREE suggested reaching out to [facility], pt agreeable Called Carrie with [facility], , they are accepting pt's and will reassess Sent update referral via [facility] Spoke with Maliha with [facility], to update on d/c omega nning Maliha with [facility] called back She learned insurance has approved pt for skilled She has reached out to [facility] in [place], [place] and they will admit But, may need new Covid test b/f can admit Per Ray Jett MD said approval could be changed from [place] to [place] with no problem Advised Maliha, just heard from nurse and pt requesting to leave AMA Tried to reach pt to advise of approval and facility acceptance but pt alread y off the floor and discharged Called Maliha back, advised pt has been discharged 1640 Call from Carrie at [facility], they will accept pt for admissio n but can't admit until Wednesday Advised pt has left AMA ? Medication Needs ? Financial ? Legal ? Other Disposition ? Expected Discharge Date Expected Discharge Date: 04/26/20 Expected Discharge Time: 1600 ? Transportation ? Next Level of Care (Acute Psych discharges only) ? Discharge Disposition Durable Medical Equipment No service has been selected for the patient. Destination No service has been selected for the patient. Home Care No service has been selected for the patient. Dialysis/Infusion No service has been selected for the patient. Viri Mills LMSW [facility] Office: [phone] Pager: [phone] * Care Plan - Bird Zhang RN - 04/25/2020 6:40 AM CDT Problem: Infection, Risk of Goal: Absence of infection Outcome: Goal Ongoing Problem: Falls, High Risk of Goal: Absence of falls-Adult Patient Outcome: Goal Ongoing Problem: Discharge Planning Goal: Participation in plan of care Outcome: Goal Ongoing Goal: Knowledge regarding plan of care Outcome: Goal Ongoing Goal: Prepared for discharge Outcome: Goal Ongoing Problem: Anxiety Goal: Alleviation of anxiety Outcome: Goal Ongoing Problem: Self-Care Deficit Goal: Maximize ADL functioning Outcome: Goal Ongoing * Case Mgmt DC Plan - Viri Mills LSCSW - 04/24/2020 12:50 PM CDT Case Management Progress Note NAME:David Rice : 959 AGE: 59 y.o. ADMISSION DATE: 04/07/2020 DAYS ADMITTED: LOS: 0 days Todays Date: 04/24/2020 Plan DC planning ongoing for d/c to [facility] when insurance authorization rece ived Interventions ? Support ? Info or Referral ? Discharge Planning Follow up call to Emy with [facility] , about admission Facility still waiting for approval, have asked for additional funds to cover the therapy costs pt needs Spoke with Maliha at [facility], about pending auth [facility] is still reviewing case, is uncertain can approve extra for therapy, st ates they have never been asked to do this before so Maliha, her lunchroom supervisor and the medical cash poster are still reviewing Spoke with pt to advise authorization still pending [id number] Call from Olamide at , she received a call from Thalia in at [facility], asking about pt Olamide reviewed notes and advised [facility] has requested auth for admission Per Thalia, [facility] has not received a request since request for IPR Olamide advised [facility] has been working with Maliha with [facility] Thalia advised there is not Maliha in her office Olamide referred Thalia to [facility] Called Thalia, , discussed pt case, hospital stay and goal for s killed therapy to increase independence so he can return home Thalia explains she spoke with wilder Nuñez at [facility] and advised of the form the f acledy needs to submit to request skilled stay Thalia reports she faxed form to [facility] Appears perhaps [facility] has been working through the wrong team at [facility] to get skilled approved and Maliha and her team deal with [facility] services r/t ongoing ne eds, LTC, community needs but Thalia and her team provide UR needed to approved IPR or skilled Provided contact number to Thalia Called Emy at [facility] to discuss situation r/t submitting request for skilled to wrong team at [facility], Emy transferred SW to the skilled nursing facility counselor, Binh ledesma Spoke with Radha, advised of conversations with Thalia Jett Shelly an d Martine's conversation with Savannah at [facility] about the correct form to submit Advised sent updated clinicals to assist with request for skilled Radha expressed understanding and agreed to f/u with [facility] about submittin g form for skilled ? Medication Needs ? Financial ? Legal ? Other Disposition ? Expected Discharge Date Expected Discharge Date: 04/26/20 Expected Discharge Time: 1700 ? Transportation ? Next Level of Care (Acute Psych discharges only) ? Discharge Disposition Durable Medical Equipment No service has been selected for the patient. [facility] Destination No service has been selected for the patient. Home Care No service has been selected for the patient. Dialysis/Infusion No service has been selected for the patient. Viri Mills MACHINIST APPRENTICE WOOD [facility] Worker Office: [phone] Pager: [phone] * Care Plan - Moris Nazario RN - 04/24/2020 5:29 AM CDT Problem: Discharge Planning Goal: Participation in plan of care Outcome: Goal Ongoing Problem: Discharge Planning Goal: Knowledge regarding plan of care Outcome: Goal Ongoing Problem: Discharge Planning Goal: Prepared for discharge Outcome: Goal Ongoing Problem: Anxiety Goal: Alleviation of anxiety Outcome: Goal Ongoing * Care Plan - Michelle Villalpando RN - 04/22/2020 10:29 PM CDT Problem: Infection, Risk of Goal: Absence of infection Outcome: Goal Ongoing Problem: Falls, High Risk of Goal: Absence of falls-Adult Patient Outcome: Goal Ongoing Problem: Discharge Planning Goal: Participation in plan of care Outcome: Goal Ongoing Goal: Knowledge regarding plan of care Outcome: Goal Ongoing Goal: Prepared for discharge Outcome: Goal Ongoing Problem: Anxiety Goal: Alleviation of anxiety Outcome: Goal Ongoing Problem: Mobility/Activity Intolerance Goal: Maximize functional ADL's and mobility outcomes Outcome: Goal Ongoing Problem: Self-Care Deficit Goal: Maximize ADL functioning Outcome: Goal Ongoing * Case Mgmt DC Plan - Viri Mills LSCSW - 04/22/2020 10:09 AM CDT Case Management Progress Note NAME:David Rice : 959 AGE: 59 y.o. ADMISSION DATE: 04/07/2020 DAYS ADMITTED: LOS: 0 days Todays Date: 04/22/2020 Plan DC planning ongoing for d/c to [facility] when insurance authorization obta ined Interventions ? Support ? Info or Referral ? Discharge Planning Called Emy at [facility], to find out if Ins auth back Was advised, auth is not back and per ins, may not be back until Wednesday Notified team and bedside RN Spoke with pt to advise Called Maliha [phone], [facility] to discuss ins auth No answer, left a detailed message requesting a return call Return call from Maliha with [facility] She has submitted the forms to her lunchroom supervisor requesting approval for pt admi ssion to [facility] ? Medication Needs ? Financial ? Legal ? Other Disposition ? Expected Discharge Date Expected Discharge Date: 04/22/20 Expected Discharge Time: 1600 ? Transportation ? Next Level of Care (Acute Psych discharges only) ? Discharge Disposition Durable Medical Equipment No service has been selected for the patient. Destination No service has been selected for the patient. Home Care No service has been selected for the patient. Dialysis/Infusion No service has been selected for the patient. Viri Mills LMSW [facility] Work[facility] Office: [phone] Pager: [phone] * Care Plan - Helena Camara RN - 04/20/2020 9:50 PM CDT Problem: Infection, Risk of Goal: Absence of infection Outcome: Goal Ongoing Flowsheets (Taken 04/10/2020 0941 by Jennifer Barajas, RN) Absence of infection: Monitor for signs and symptoms of infection Assess for infection (Monitor SIRS Criteria) Administer pharmacological therapies as ordered Implement prevention measures as indicated Problem: Falls, High Risk of Goal: Absence of falls-Adult Patient Outcome: Goal Ongoing Flowsheets (Taken 04/10/2020 0420 by Vivian Wilks, GORDO) Absence of falls-Adult Patient: Complete Fall Risk Assessment. Consider additional interventions if patient is confused, has gait/balance prob lems and on high risk medications. Provide fall prevention strategies. Provde safe environment. Implement fall risk bundle. Provide safe ambulation. Problem: Discharge Planning Goal: Participation in plan of care Outcome: Goal Ongoing Flowsheets (Taken 04/17/2020 1138 by Ines Obrien, GORDO) Participation in Plan of Care: Involve patient/caregiver in care planning decisi on making Goal: Knowledge regarding plan of care Outcome: Goal Ongoing Flowsheets (Taken 04/10/2020 0420 by Vivian Wikls, GORDO) Knowledge regarding plan of care: Provide fall prevention education Provide VTE signs and symptoms education Provide plan of care education Provide infection prevention education Provide medication management education Provide procedural and treatment education Goal: Prepared for discharge Outcome: Goal Ongoing Flowsheets (Taken 04/10/2020 0420 by Vivian Wilks, RN) Prepared for discharge: Provide safe use medical equipment education Complete ADL ability assessment Collaborate with multidisciplinary team for hospital discharge coordination Provide diet and oral health education Problem: Anxiety Goal: Alleviation of anxiety Outcome: Goal Ongoing Flowsheets (Taken 04/10/2020 0420 by Vivian Wilks, GORDO) Alleviation of Anxiety: Assess coping style Provide relaxation techniques education Provide coping support to patient/caregiver Consider consult for anxiety Provide comfort promotion interventions Provide positive coping methods with education Problem: Mobility/Activity Intolerance Goal: Maximize functional ADL's and mobility outcomes Outcome: Goal Ongoing Flowsheets (Taken 04/19/2020 2335) Maximize functional ADLs and mobility outcomes: Administer oxygen to maintain SpO2 at approprate levels Maintain body position Manage environmental safety Problem: Self-Care Deficit Goal: Maximize ADL functioning Outcome: Goal Ongoing Note: Pt requires assistance with most ADL's due to weakness, fatigue, and overe stimation of his ability. * Care Plan - Helena Camara RN - 04/19/2020 11:36 PM CDT Problem: Infection, Risk of Goal: Absence of infection Outcome: Goal Ongoing Flowsheets (Taken 04/10/2020 0941 by Jennifer Barajas, GORDO) Absence of infection: Monitor for signs and symptoms of infection Assess for infection (Monitor SIRS Criteria) Administer pharmacological therapies as ordered Implement prevention measures as indicated Problem: Falls, High Risk of Goal: Absence of falls-Adult Patient Outcome: Goal Ongoing Flowsheets (Taken 04/10/2020 0420 by Vivian Wilks, GORDO) Absence of falls-Adult Patient: Complete Fall Risk Assessment. Consider additional interventions if patient is confused, has gait/balance prob lems and on high risk medications. Provide fall prevention strategies. Provde safe environment. Implement fall risk bundle. Provide safe ambulation. Problem: Discharge Planning Goal: Participation in plan of care Outcome: Goal Ongoing Flowsheets (Taken 04/17/2020 1138 by Ines Obrien, GORDO) Participation in Plan of Care: Involve patient/caregiver in care planning decisi on making Goal: Knowledge regarding plan of care Outcome: Goal Ongoing Flowsheets (Taken 04/10/2020 0420 by Vivian Wilks, GORDO) Knowledge regarding plan of care: Provide fall prevention education Provide VTE signs and symptoms education Provide plan of care education Provide infection prevention education Provide medication management education Provide procedural and treatment education Goal: Prepared for discharge Outcome: Goal Ongoing Flowsheets (Taken 04/10/2020 0420 by Vivian Wilks, RN) Prepared for discharge: Provide safe use medical equipment education Complete ADL ability assessment Collaborate with multidisciplinary team for hospital discharge coordination Provide diet and oral health education Problem: Anxiety Goal: Alleviation of anxiety Outcome: Goal Ongoing Flowsheets (Taken 04/10/2020 0420 by Vivian Wilks, RN) Alleviation of Anxiety: Assess coping style Provide relaxation techniques education Provide coping support to patient/caregiver Consider consult for anxiety Provide comfort promotion interventions Provide positive coping methods with education Problem: Mobility/Activity Intolerance Goal: Maximize functional ADL's and mobility outcomes Outcome: Goal Ongoing Flowsheets (Taken 04/19/2020 2335) Maximize functional ADLs and mobility outcomes: Administer oxygen to maintain SpO2 at approprate levels Maintain body position Manage environmental safety Problem: Self-Care Deficit Goal: Maximize ADL functioning Outcome: Goal Ongoing Note: Pt requires assistance with most ADL's due to weakness. * Case Mgmt DC Plan - Viri Mills LSCSW - 04/19/2020 1:20 PM CDT Case Management Progress Note NAME:David Rice : 959 AGE: 59 y.o. ADMISSION DATE: 04/07/2020 DAYS ADMITTED: LOS: 0 days Todays Date: 04/19/2020 Plan DC to Replaced by [facility] on Wednesday if insurance auth obtained Interventions ? Support ? Info or Referral ? Discharge Planning Spoke with Emy at Replaced by [facility], Pt clinically accepted for admission Facility has requested insurance auth Facility does not have bed until Wednesday regardless if auth back today Faxed negative Covid result to [phone] Pt agreeable to going to [facility] when bed available and ins auth obtained [place] is 04/22/20 ? Medication Needs ? Financial ? Legal ? Other Disposition ? Expected Discharge Date Expected Discharge Date: 04/22/20 Expected Discharge Time: 1600 ? Transportation ? Next Level of Care (Acute Psych discharges only) ? Discharge Disposition Durable Medical Equipment No service has been selected for the patient. Destination No service has been selected for the patient. Home Care No service has been selected for the patient. Dialysis/Infusion No service has been selected for the patient. Viri Mills LMSW [facility] Office: [phone] Pager: [phone] * Care Plan - Helena Camara RN - 04/19/2020 1:39 AM CDT Problem: Infection, Risk of Goal: Absence of infection Outcome: Goal Ongoing Flowsheets (Taken 04/10/2020 0941 by Jennifer Barajas, GORDO) Absence of infection: Monitor for signs and symptoms of infection Assess for infection (Monitor SIRS Criteria) Administer pharmacological therapies as ordered Implement prevention measures as indicated Problem: Falls, High Risk of Goal: Absence of falls-Adult Patient Outcome: Goal Ongoing Flowsheets (Taken 04/10/2020 0420 by Vivian Wilks, RN) Absence of falls-Adult Patient: Complete Fall Risk Assessment. Consider additional interventions if patient is confused, has gait/balance prob lems and on high risk medications. Provide fall prevention strategies. Provde safe environment. Implement fall risk bundle. Provide safe ambulation. Problem: Discharge Planning Goal: Participation in plan of care Outcome: Goal Ongoing Flowsheets (Taken 04/17/2020 1138 by Ines Obrien, GORDO) Participation in Plan of Care: Involve patient/caregiver in care planning decisi on making Goal: Knowledge regarding plan of care Outcome: Goal Ongoing Flowsheets (Taken 04/10/2020 0420 by iVvian Wilks, GORDO) Knowledge regarding plan of care: Provide fall prevention education Provide VTE signs and symptoms education Provide plan of care education Provide infection prevention education Provide medication management education Provide procedural and treatment education Goal: Prepared for discharge Outcome: Goal Ongoing Flowsheets (Taken 04/10/2020419 by Vivian Wilks, GORDO) Prepared for discharge: Provide safe use medical equipment education Complete ADL ability assessment Collaborate with multidisciplinary team for hospital discharge coordination Provide diet and oral health education Problem: Anxiety Goal: Alleviation of anxiety Outcome: Goal Ongoing Flowsheets (Taken 04/10/2020 0420 by Vivian Wilks, RN) Alleviation of Anxiety: Assess coping style Provide relaxation techniques education Provide coping support to patient/caregiver Consider consult for anxiety Provide comfort promotion interventions Provide positive coping methods with education Problem: Mobility/Activity Intolerance Goal: Maximize functional ADL's and mobility outcomes Outcome: Goal Ongoing Flowsheets (Taken 04/10/20200 by Vivian Wilks, GORDO) Maximize functional ADLs and mobility outcomes: Administer oxygen to maintain SpO2 at approprate levels Manage environmental safety Maintain body position Consider consult for mobility/activity intolerance Manage energy conservation for mobility/activity intolerance Problem: Self-Care Deficit Goal: Maximize ADL functioning Outcome: Goal Ongoing Note: Pt requires assistance with all ADL's. * Case Mgmt DC Plan - Viri Mills LSCSW - 04/18/2020 10:24 AM CDT Case Management Progress Note NAME:David Rice : 959 AGE: 59 y.o. ADMISSION DATE: 04/07/2020 DAYS ADMITTED: LOS: 0 days Todays Date: 04/18/2020 Plan DC planning ongoing for placement Interventions ? Support ? Info or Referral ? Discharge Planning ? Medication Needs Pt medically stable for d/c Continue to look for accepting facility Emy with [facility] , called, facility clinically accepted, just finalizing availability and requesting insurance auth Notified pt, he is agreeable to [facility] as long as he can have a private room Idalmis garcia [facility] called, facility not accepting admissions at [facility] s time Maliha [phone], Ray pillowcase maker called to update about conversation with medical cash poster about IPR vs skilled. executive creative director still feels skille d vs IPR is appropriate level of care ? Financial ? Legal ? Other Disposition ? Expected Discharge Date Expected Discharge Date: 04/19/20 Expected Discharge Time: 1300 ? Transportation ? Next Level of Care (Acute Psych discharges only) ? Discharge Disposition Durable Medical Equipment No service has been selected for the patient. [facility] Destination No service has been selected for the patient. Home Care No service has been selected for the patient. Dialysis/Infusion No service has been selected for the patient. Viri Mills [facility] Office: [phone] Pager: [phone] * Care Plan - Brandy Ward RN - 04/18/2020 12:55 AM CDT Problem: Infection, Risk of Goal: Absence of infection Outcome: Goal Ongoing Flowsheets (Taken 04/10/2020 0941 by Jennifer Barajas, GORDO) Absence of infection: Monitor for signs and symptoms of infection Assess for infection (Monitor SIRS Criteria) Administer pharmacological therapies as ordered Implement prevention measures as indicated Problem: Falls, High Risk of Goal: Absence of falls-Adult Patient Outcome: Goal Ongoing Flowsheets (Taken 04/10/2020419 by Vivian Wilks, GORDO) Absence of falls-Adult Patient: Complete Fall Risk Assessment. Consider additional interventions if patient is confused, has gait/balance prob lems and on high risk medications. Provide fall prevention strategies. Provde safe environment. Implement fall risk bundle. Provide safe ambulation. Problem: Discharge Planning Goal: Participation in plan of care Outcome: Goal Ongoing Flowsheets (Taken 04/17/2020 1138 by Ines Obrien, GORDO) Participation in Plan of Care: Involve patient/caregiver in care planning decisi on making Goal: Knowledge regarding plan of care Outcome: Goal Ongoing Flowsheets (Taken 04/10/2020419 by Vivian Wilks, GORDO) Knowledge regarding plan of care: Provide fall prevention education Provide VTE signs and symptoms education Provide plan of care education Provide infection prevention education Provide medication management education Provide procedural and treatment education Goal: Prepared for discharge Outcome: Goal Ongoing Flowsheets (Taken 04/10/2020419 by Vivian Wilks, GORDO) Prepared for discharge: Provide safe use medical equipment education Complete ADL ability assessment Collaborate with multidisciplinary team for hospital discharge coordination Provide diet and oral health education Problem: Anxiety Goal: Alleviation of anxiety Outcome: Goal Ongoing Flowsheets (Taken 04/10/2020419 by Vivian Wilks, GORDO) Alleviation of Anxiety: Assess coping style Provide relaxation techniques education Provide coping support to patient/caregiver Consider consult for anxiety Provide comfort promotion interventions Provide positive coping methods with education Problem: Mobility/Activity Intolerance Goal: Maximize functional ADL's and mobility outcomes Outcome: Goal Ongoing Flowsheets (Taken 04/10/2020419 by Vivian Wilks, GORDO) Maximize functional ADLs and mobility outcomes: Administer oxygen to maintain SpO2 at approprate levels Manage environmental safety Maintain body position Consider consult for mobility/activity intolerance Manage energy conservation for mobility/activity intolerance Problem: Self-Care Deficit Goal: Maximize ADL functioning Outcome: Goal Ongoing * Case Mgmt DC Plan - Viri Mills LSCSW - 04/17/2020 1:47 PM CDT Case Management Progress Note NAME:David Rice : 959 AGE: 59 y.o. ADMISSION DATE: 04/07/2020 DAYS ADMITTED: LOS: 0 days Todays Date: 04/17/2020 Plan DC planning ongoing for d/c to skilled when facility found Interventions ? Support ? Info or Referral ? Discharge Planning Message from pt to call Silva with [facility] [place] [facility] [place] [phone] Spoke with Silva, who states pt called her late yesterday evening about admi ssion to [facility] Advised of d/c planning to date including pt [facility] clinical acceptance but ins denial Per Silva with no change of condition there is no reason to submit for ins [facility] Silva offered to call pt back and explain situation and promote skilled 1230 Silva with [facility], called, she has spoken with pt and ex plained they will not assess as insurance has denied their level of care. She s tates she and pt spoke at length about IPR vs skilled and insurance denial for I PA. At this time she reports pt is agreeable to pursuing SNF Called pt, OT in room, pt reports they have been discussing SNF and he is now agreeable to SW sending referrals to SNF in [place] area as well as near his home Pt prefers a smaller facility Reviewed [facility] compare for facilities and sent referrals to: [facility] (Out of network b/c in [place]) [facility] Care [facility] (Per Makayla, not accepting [place] skilled at this time) [facility] [address] Makayla with [facility] called, this location not accepting [place] skilled right now but she recommends trying [facility] and [facility] Sent referrals per recommendation [facility] - (not accepting [place] skilled at this time) 1645 Johanny, , with [facility] called, declined admission, not IPR appropriate per her ? Medication Needs ? Financial ? Legal ? Other Disposition ? Expected Discharge Date Expected Discharge Date: 04/18/20 Expected Discharge Time: 1300 ? Transportation ? Next Level of Care (Acute Psych discharges only) ? Discharge Disposition Durable Medical Equipment No service has been selected for the patient. Destination No service has been selected for the patient. Home Care No service has been selected for the patient. Dialysis/Infusion No service has been selected for the patient. Viri Mills LMSW [facility] Office: [phone] Pager: [phone] * Care Plan - Ines Obrien RN - 04/17/2020 11:39 AM CDT Problem: Infection, Risk of Goal: Absence of infection Outcome: Goal Ongoing Flowsheets (Taken 04/10/2020 0941 by Jennifer Barajas RN) Absence of infection: Monitor for signs and symptoms of infection Assess for infection (Monitor SIRS Criteria) Administer pharmacological therapies as ordered Implement prevention measures as indicated Problem: Falls, High Risk of Goal: Absence of falls-Adult Patient Outcome: Goal Ongoing Flowsheets (Taken 04/10/2020 0420 by Vivian Wilks, GORDO) Absence of falls-Adult Patient: Complete Fall Risk Assessment. Consider additional interventions if patient is confused, has gait/balance prob lems and on high risk medications. Provide fall prevention strategies. Provde safe environment. Implement fall risk bundle. Provide safe ambulation. Problem: Discharge Planning Goal: Participation in plan of care Outcome: Goal Ongoing Flowsheets (Taken 04/17/2020 1138) Participation in Plan of Care: Involve patient/caregiver in care planning decisi on making Goal: Knowledge regarding plan of care Outcome: Goal Ongoing Flowsheets (Taken 04/10/2020 0420 by Vivian Wilks, GORDO) Knowledge regarding plan of care: Provide fall prevention education Provide VTE signs and symptoms education Provide plan of care education Provide infection prevention education Provide medication management education Provide procedural and treatment education Goal: Prepared for discharge Outcome: Goal Ongoing Flowsheets (Taken 04/10/2020 0420 by Vivian Wilks, GORDO) Prepared for discharge: Provide safe use medical equipment education Complete ADL ability assessment Collaborate with multidisciplinary team for hospital discharge coordination Provide diet and oral health education Problem: Anxiety Goal: Alleviation of anxiety Outcome: Goal Ongoing Flowsheets (Taken 04/10/2020 0420 by Vivian Wilks, GORDO) Alleviation of Anxiety: Assess coping style Provide relaxation techniques education Provide coping support to patient/caregiver Consider consult for anxiety Provide comfort promotion interventions Provide positive coping methods with education Problem: Mobility/Activity Intolerance Goal: Maximize functional ADL's and mobility outcomes Outcome: Goal Ongoing Flowsheets (Taken 04/10/2020419 by Vivian Wilks, GORDO) Maximize functional ADLs and mobility outcomes: Administer oxygen to maintain SpO2 at approprate levels Manage environmental safety Maintain body position Consider consult for mobility/activity intolerance Manage energy conservation for mobility/activity intolerance Problem: Self-Care Deficit Goal: Maximize ADL functioning Outcome: Goal Ongoing * Care Plan - Brandy Ward RN - 04/16/2020 8:36 PM CDT Problem: Infection, Risk of Goal: Absence of infection Outcome: Goal Ongoing Flowsheets (Taken 04/10/2020 09 by Jennifer Barajas RN) Absence of infection: Monitor for signs and symptoms of infection Assess for infection (Monitor SIRS Criteria) Administer pharmacological therapies as ordered Implement prevention measures as indicated Problem: Falls, High Risk of Goal: Absence of falls-Adult Patient Outcome: Goal Ongoing Flowsheets (Taken 04/10/2020419 by Vivian Wilks, GORDO) Absence of falls-Adult Patient: Complete Fall Risk Assessment. Consider additional interventions if patient is confused, has gait/balance prob lems and on high risk medications. Provide fall prevention strategies. Provde safe environment. Implement fall risk bundle. Provide safe ambulation. Problem: Discharge Planning Goal: Participation in plan of care Outcome: Goal Ongoing Flowsheets (Taken 04/10/2020419 by Vivian Wilks, RN) Participation in Plan of Care: Involve patient/caregiver in care planning decisi on making Goal: Knowledge regarding plan of care Outcome: Goal Ongoing Flowsheets (Taken 04/10/2020419 by Vivian Wilks, RN) Knowledge regarding plan of care: Provide fall prevention education Provide VTE signs and symptoms education Provide plan of care education Provide infection prevention education Provide medication management education Provide procedural and treatment education Goal: Prepared for discharge Outcome: Goal Ongoing Flowsheets (Taken 04/10/2020419 by Vivian Wilks, RN) Prepared for discharge: Provide safe use medical equipment education Complete ADL ability assessment Collaborate with multidisciplinary team for hospital discharge coordination Provide diet and oral health education Problem: Anxiety Goal: Alleviation of anxiety Outcome: Goal Ongoing Flowsheets (Taken 04/10/2020419 by Vivian Wilks RN) Alleviation of Anxiety: Assess coping style Provide relaxation techniques education Provide coping support to patient/caregiver Consider consult for anxiety Provide comfort promotion interventions Provide positive coping methods with education Problem: Mobility/Activity Intolerance Goal: Maximize functional ADL's and mobility outcomes Outcome: Goal Ongoing Flowsheets (Taken 04/10/2020419 by Vivian Wilks RN) Maximize functional ADLs and mobility outcomes: Administer oxygen to maintain SpO2 at approprate levels Manage environmental safety Maintain body position Consider consult for mobility/activity intolerance Manage energy conservation for mobility/activity intolerance Problem: Self-Care Deficit Goal: Maximize ADL functioning Outcome: Goal Ongoing * Care Plan - Selina Kwan RN - 04/16/2020 5:23 PM CDT Problem: Infection, Risk of Goal: Absence of infection Outcome: Goal Ongoing Problem: Falls, High Risk of Goal: Absence of falls-Adult Patient Outcome: Goal Ongoing Problem: Discharge Planning Goal: Participation in plan of care Outcome: Goal Ongoing Goal: Knowledge regarding plan of care Outcome: Goal Ongoing Goal: Prepared for discharge Outcome: Goal Ongoing Problem: Anxiety Goal: Alleviation of anxiety Outcome: Goal Ongoing Problem: Mobility/Activity Intolerance Goal: Maximize functional ADL's and mobility outcomes Outcome: Goal Ongoing Problem: Self-Care Deficit Goal: Maximize ADL functioning Outcome: Goal Ongoing * Case Mgmt DC Plan - Viri Mills LSCSW - 04/16/2020 9:38 AM CDT Case Management Progress Note NAME:David Rice : 959 AGE: 59 y.o. ADMISSION DATE: 04/07/2020 DAYS ADMITTED: LOS: 0 days Todays Date: 04/16/2020 Plan DC planning ongoing Interventions ? Support ? Info or Referral ? Discharge Planning 934 Called [facility] [phone] to f/u on referral sent yesterday [facility] facility cannot accept Called pt to advise and discuss options but there was no answer 1020 Called pt to give update, no answer, will try again 1200 Pt called SW to discuss d/c planning Pt reports he spoke with someone "with my medical card" who advised him the r yojana IPR was not approved is because a "dr from [facility] told them he didn't need it" and states was told if it was resubmitted it would be approved. Pt went on to say he talked with his PT who agreed to make a note stating pt needs inpt. Pt a lso referenced a P2P option although he didn't call it this when I asked if this is what he meant he said, "yes." Explained to pt therapy has already been putting in their notes the recommend ation for inpt since 04/08/[address], by nature of initiating a P2P is advocating for and statin g s/he feels pt needs and meets criteria for inpt Advised pt it is his insurance which denied inpt rehab level of care and zay mmended SNF, not the dr or hospital Advised therapy notes which include recommendations are included when referra ls are sent Pt is reluctant to pursue SNF because he doesn't want to be around old and si ck people, states it makes him uncomfortable Advised pt this is the level of care insurance is approving and reminded it w ill be short-term to get him strong enough to go home Pt would like to focus on IPR but SW trying to move focus to skilled and aske d for permission to send more referrals to SNF in the area pt agreed but wants I PA referrals as well [facility] clinicially accepted but Insurance denied [facility] did not clinically accept [facility] did not clinicially accept Called Maliha, , [facility] [place] ad clerk to address statement s r/t ins and IPR [facility] confirmed per notes ins denied IPR but is recommending skilled Maliha will reach out to the medical cash poster to she is there is any chance o f getting IPR approved Email to CM team asking for ideas of smaller nursing homes in the area per p t preference [phone] Jaymie Ceja with pt relations met with pt to address concerns and answer qu estions and explain the situation r/t IPR vs skilled and insurance/P2P After meeting with pt, he still requests [facility] resubmit for ins auth Spoke with Latrice, at [facility] regarding pt's request Unfortunately since there has not been a change in condition [facility] cannot resu bmit for auth as there is no change Did ask team physician to request a rehab medicine consult for second opinion outside of insurance and team on IPR vs skilled Notified Jaymie with Pt relations and attempted to call pt but the line was b usy Will f/u with pt [phone] Follow up call to pt room No answer, will try again 1620 Email from Brianda Hernandez with a request from pt to send referrals to [facility], and [facility] [phone] Sent referral to [facility] via Epic Called [facility] at [phone], the number provided in email but it is out of service Looked up hospital on the internet but could not find it Called pt to advise of [facility] decision and see if he has another number/name fo r the [facility] but there was no answer Will f/u Medication Needs ? Financial ? Legal ? Other Disposition ? Expected Discharge Date Expected Discharge Date: 04/16/20 Expected Discharge Time: 1600 ? Transportation ? Next Level of Care (Acute Psych discharges only) ? Discharge Disposition Durable Medical Equipment No service has been selected for the patient. [facility] Destination No service has been selected for the patient. Home Care No service has been selected for the patient. Dialysis/Infusion No service has been selected for the patient. Viri Mills LMSW [facility] Office: [phone] Pager: [phone] * Care Plan - Brandy Ward RN - 04/15/2020 10:58 PM CDT Problem: Infection, Risk of Goal: Absence of infection Outcome: Goal Ongoing Flowsheets (Taken 04/10/2020 0941 by Jennifer Barajas, RN) Absence of infection: Monitor for signs and symptoms of infection Assess for infection (Monitor SIRS Criteria) Administer pharmacological therapies as ordered Implement prevention measures as indicated Problem: Falls, High Risk of Goal: Absence of falls-Adult Patient Outcome: Goal Ongoing Flowsheets (Taken 04/10/2020 0420 by Vivian Wilks RN) Absence of falls-Adult Patient: Complete Fall Risk Assessment. Consider additional interventions if patient is confused, has gait/balance prob lems and on high risk medications. Provide fall prevention strategies. Provde safe environment. Implement fall risk bundle. Provide safe ambulation. Problem: Discharge Planning Goal: Participation in plan of care Outcome: Goal Ongoing Flowsheets (Taken 04/10/2020419 by Vivian Wilks RN) Participation in Plan of Care: Involve patient/caregiver in care planning decisi on making Goal: Knowledge regarding plan of care Outcome: Goal Ongoing Flowsheets (Taken 04/10/2020419 by Vivian Wilks RN) Knowledge regarding plan of care: Provide fall prevention education Provide VTE signs and symptoms education Provide plan of care education Provide infection prevention education Provide medication management education Provide procedural and treatment education Goal: Prepared for discharge Outcome: Goal Ongoing Flowsheets (Taken 04/10/2020419 by Vivian Wilks RN) Prepared for discharge: Provide safe use medical equipment education Complete ADL ability assessment Collaborate with multidisciplinary team for hospital discharge coordination Provide diet and oral health education Problem: Anxiety Goal: Alleviation of anxiety Outcome: Goal Ongoing Flowsheets (Taken 04/10/2020419 by Vivian Wilks RN) Alleviation of Anxiety: Assess coping style Provide relaxation techniques education Provide coping support to patient/caregiver Consider consult for anxiety Provide comfort promotion interventions Provide positive coping methods with education Problem: Mobility/Activity Intolerance Goal: Maximize functional ADL's and mobility outcomes Outcome: Goal Ongoing Flowsheets (Taken 04/10/2020419 by Vivian Wilks RN) Maximize functional ADLs and mobility outcomes: Administer oxygen to maintain SpO2 at approprate levels Manage environmental safety Maintain body position Consider consult for mobility/activity intolerance Manage energy conservation for mobility/activity intolerance Problem: Self-Care Deficit Goal: Maximize ADL functioning Outcome: Goal Ongoing * Case Mgmt DC Alexander - Viri Mills LSLuci - 04/15/2020 12:17 PM CDT Case Management Progress Note NAME:David Rice : 959 AGE: 59 y.o. ADMISSION DATE: 04/07/2020 DAYS ADMITTED: LOS: 0 days Todays Date: 04/15/2020 Plan DC planning ongoing Interventions ? Support ? Info or Referral ? Discharge Planning Per Dr. Soto, P2P complete, insurance denies IPR, recommends SNF Spoke with pt, explained about insurance denying IPR Pt disappointed and reluctant to go to SNF because of "the old/sick people" i n nursing homes which make him uncomfortable Discussed options and pt does not feel he can return home and car for self Pt approved [facility] [place] as he heard it was a small er facility and he might feel more comfortable Spoke with BREE Del Castillo at [facility], about placement Facility will assess Referral faxed to [phone] ? Medication Needs ? Financial ? Legal ? Other Disposition ? Expected Discharge Date Expected Discharge Date: 04/17/20 Expected Discharge Time: 1600 ? Transportation ? Next Level of Care (Acute Psych discharges only) ? Discharge Disposition Durable Medical Equipment No service has been selected for the patient. Destination No service has been selected for the patient. Home Care No service has been selected for the patient. Dialysis/Infusion No service has been selected for the patient. Viri Mills LMSW [facility] Office: [phone] Pager: [phone] * Care Plan - India Paulino RN - 04/15/2020 6:14 AM CDT Problem: Infection, Risk of Goal: Absence of infection Outcome: Goal Ongoing Problem: Falls, High Risk of Goal: Absence of falls-Adult Patient Outcome: Goal Ongoing Problem: Discharge Planning Goal: Participation in plan of care Outcome: Goal Ongoing Problem: Anxiety Goal: Alleviation of anxiety Outcome: Goal Ongoing Problem: Mobility/Activity Intolerance Goal: Maximize functional ADL's and mobility outcomes Outcome: Goal Ongoing Problem: Self-Care Deficit Goal: Maximize ADL functioning Outcome: Goal Ongoing Problem: Discharge Planning Goal: Knowledge regarding plan of care Flowsheets (Taken 04/10/2020 0420 by Vivian Wilks, GORDO) Knowledge regarding plan of care: Provide fall prevention education Provide VTE signs and symptoms education Provide plan of care education Provide infection prevention education Provide medication management education Provide procedural and treatment education * Case Mgmt DC Plan - Cristal Keating - 04/14/2020 9:11 AM CDT Case Management Progress Note NAME:David Rice : 959 AGE: 59 y.o. ADMISSION DATE: 04/07/2020 DAYS ADMITTED: LOS: 0 days Todays Date: 04/14/2020 Plan: Discharge planning ongoing. Interventions ? Support ? Info or Referral ? Discharge Planning SW spoke to team about P2P. Team made several attempts to reach insurance yesterday through the number pr ovided, but they were not successful. Team has P2P number to attempt again today if time permits. Weekend report updated and primary SW to follow up tomorrow. ? Medication Needs o Financial ? Legal ? Other Disposition ? Expected Discharge Date Expected Discharge Date: 04/15/20 Expected Discharge Time: 1600 ? Transportation ? Next Level of Care (Acute Psych discharges only) ? Discharge Disposition Durable Medical Equipment No service has been selected for the patient. Destination No service has been selected for the patient. Home Care No service has been selected for the patient. Dialysis/Infusion No service has been selected for the patient. Cristal Keating [facility] Emergency Department Pager *[phone] * Care Plan - Mahogany Medina RN - 04/13/2020 11:35 PM CDT Problem: Infection, Risk of Goal: Absence of infection Outcome: Goal Ongoing Flowsheets (Taken 04/10/2020 0941 by Jennifer Barajas, GORDO) Absence of infection: Monitor for signs and symptoms of infection Assess for infection (Monitor SIRS Criteria) Administer pharmacological therapies as ordered Implement prevention measures as indicated Note: Pt assessed for infection. Proper pharmacologic preventions and treatments in place to prevent/treat infection. Pt educated on treatments being given. Problem: Falls, High Risk of Goal: Absence of falls-Adult Patient Outcome: Goal Ongoing Flowsheets (Taken 04/10/2020 0420 by Vivian Wilks, RN) Absence of falls-Adult Patient: Complete Fall Risk Assessment. Consider additional interventions if patient is confused, has gait/balance prob lems and on high risk medications. Provide fall prevention strategies. Provde safe environment. Implement fall risk bundle. Provide safe ambulation. Note: Fall bundle in place. Pt educated on fall risk status and verbalizes under standing of interventions. Call light within reach. Problem: Discharge Planning Goal: Participation in plan of care Outcome: Goal Ongoing Flowsheets (Taken 04/10/2020419 by Vivian Wilks, RN) Participation in Plan of Care: Involve patient/caregiver in care planning decisi on making Note: Pt involved in discharge planning and teaching and verbalizes ajay head Pt questions and concerns addressed regarding discharge Goal: Knowledge regarding plan of care Outcome: Goal Ongoing Flowsheets (Taken 04/10/2020419 by Vivian Wilks, GORDO) Knowledge regarding plan of care: Provide fall prevention education Provide VTE signs and symptoms education Provide plan of care education Provide infection prevention education Provide medication management education Provide procedural and treatment education Goal: Prepared for discharge Outcome: Goal Ongoing Flowsheets (Taken 04/10/2020419 by Vivian Wilks, GORDO) Prepared for discharge: Provide safe use medical equipment education Complete ADL ability assessment Collaborate with multidisciplinary team for hospital discharge coordination Provide diet and oral health education Problem: Anxiety Goal: Alleviation of anxiety Outcome: Goal Ongoing Flowsheets (Taken 04/10/2020419 by Vivian Wilks, GODRO) Alleviation of Anxiety: Assess coping style Provide relaxation techniques education Provide coping support to patient/caregiver Consider consult for anxiety Provide comfort promotion interventions Provide positive coping methods with education Note: Pt refusing Xanax, given melatonin to assist with sleep Problem: Mobility/Activity Intolerance Goal: Maximize functional ADL's and mobility outcomes Outcome: Goal Ongoing Flowsheets (Taken 04/10/2020419 by Vivian Wilks, GORDO) Maximize functional ADLs and mobility outcomes: Administer oxygen to maintain SpO2 at approprate levels Manage environmental safety Maintain body position Consider consult for mobility/activity intolerance Manage energy conservation for mobility/activity intolerance Problem: Self-Care Deficit Goal: Maximize ADL functioning Outcome: Goal Ongoing * Care Plan - Mahogany Medina RN - 04/12/2020 9:30 PM CDT Problem: Infection, Risk of Goal: Absence of infection Outcome: Goal Ongoing Flowsheets (Taken 04/10/2020 0941 by Jennifer Barajas, RN) Absence of infection: Monitor for signs and symptoms of infection Assess for infection (Monitor SIRS Criteria) Administer pharmacological therapies as ordered Implement prevention measures as indicated Note: Pt assessed for infection. Proper pharmacologic preventions and treatments in place to prevent/treat infection. Pt educated on treatments being given. Problem: Falls, High Risk of Goal: Absence of falls-Adult Patient Outcome: Goal Ongoing Flowsheets (Taken 04/10/2020419 by Vivian Wilsk, RN) Absence of falls-Adult Patient: Complete Fall Risk Assessment. Consider additional interventions if patient is confused, has gait/balance prob lems and on high risk medications. Provide fall prevention strategies. Provde safe environment. Implement fall risk bundle. Provide safe ambulation. Problem: Discharge Planning Goal: Participation in plan of care Outcome: Goal Ongoing Flowsheets (Taken 04/10/2020419 by Vivian Wilks, RN) Participation in Plan of Care: Involve patient/caregiver in care planning decisi on making Note: Pt educated on possible discharge to facility tomorrow pending bed availab ility and insurance acceptance Goal: Knowledge regarding plan of care Outcome: Goal Ongoing Flowsheets (Taken 04/10/2020419 by Vivian Wilks, RN) Knowledge regarding plan of care: Provide fall prevention education Provide VTE signs and symptoms education Provide plan of care education Provide infection prevention education Provide medication management education Provide procedural and treatment education Goal: Prepared for discharge Outcome: Goal Ongoing Flowsheets (Taken 04/10/2020419 by Vivian Wilks, RN) Prepared for discharge: Provide safe use medical equipment education Complete ADL ability assessment Collaborate with multidisciplinary team for hospital discharge coordination Provide diet and oral health education Problem: Anxiety Goal: Alleviation of anxiety Outcome: Goal Ongoing Flowsheets (Taken 04/10/2020419 by Vivian Wilks, RN) Alleviation of Anxiety: Assess coping style Provide relaxation techniques education Provide coping support to patient/caregiver Consider consult for anxiety Provide comfort promotion interventions Provide positive coping methods with education Note: Pt given xanax and encouraged to take deep breaths. Lights in room turned down Problem: Mobility/Activity Intolerance Goal: Maximize functional ADL's and mobility outcomes Outcome: Goal Ongoing Flowsheets (Taken 04/10/2020419 by Vivian Wilks RN) Maximize functional ADLs and mobility outcomes: Administer oxygen to maintain SpO2 at approprate levels Manage environmental safety Maintain body position Consider consult for mobility/activity intolerance Manage energy conservation for mobility/activity intolerance Problem: Self-Care Deficit Goal: Maximize ADL functioning Outcome: Goal Ongoing * Case Mgmt DC Plan - Viri Mills LSCSW - 04/12/2020 4:42 PM CDT Case Management Progress Note NAME:David Rice : 959 AGE: 59 y.o. ADMISSION DATE: 04/07/2020 DAYS ADMITTED: LOS: 0 days Todays Date: 04/12/2020 Plan DC planning ongoing Interventions ? Support ? Info or Referral ? Discharge Planning Pt clinically accepted at [facility] Waiting on insurance auth but no bed today even if auth comes back [facility] will have a bed tomorrow so if auth received pt will d/c tomorrow to [facility] Spoke with pt to advise still waiting on inusurance auth Pt expressed understanding 1300 Notified by Lenka at [facility], insurance denied Lenka provided [facility] info/number Advised team insurance denied by [facility] is an option Doctor agreed to call for P Provided number via Voalte [phone] P2P still pending Notified [facility] Added to weekend SW report ? Medication Needs ? Financial ? Legal ? Other Disposition ? Expected Discharge Date Expected Discharge Date: 04/13/20 Expected Discharge Time: 1600 ? Transportation ? Next Level of Care (Acute Psych discharges only) ? Discharge Disposition Durable Medical Equipment No service has been selected for the patient. Destination No service has been selected for the patient. Home Care No service has been selected for the patient. Dialysis/Infusion No service has been selected for the patient. Weekend Needs of SW Instructions for SWCM W/E Staff: Follow up with Dr. Soto about P2P, if approved f/u with Lenka at [facility] [phone] about admission Weekend Contact at agency/facility: Lenka Weekend Fax: NA Transfer Packet completed (TPOPP & PCS form included as appropriate): NA Additional family to be contacted: NA Medication Voucher needed: NA Additional Resources needed (clothing, meal passes, cab voucher, [employer] [place] [employer], etc): NEREIDA Mills LMSW [facility] Office: [phone] Pager: [phone] * Care Plan - Mahogany Medina RN - 04/12/2020 1:05 AM CDT Problem: Infection, Risk of Goal: Absence of infection Outcome: Goal Ongoing Flowsheets (Taken 04/10/2020 0941 by Jennifer Barajas, GORDO) Absence of infection: Monitor for signs and symptoms of infection Assess for infection (Monitor SIRS Criteria) Administer pharmacological therapies as ordered Implement prevention measures as indicated Note: Pt assessed for infection. Proper pharmacologic preventions and treatments in place to prevent/treat infection. Pt educated on treatments being given. Problem: Falls, High Risk of Goal: Absence of falls-Adult Patient Outcome: Goal Ongoing Flowsheets (Taken 04/10/2020419 by Vivian Wilks, RN) Absence of falls-Adult Patient: Complete Fall Risk Assessment. Consider additional interventions if patient is confused, has gait/balance prob lems and on high risk medications. Provide fall prevention strategies. Provde safe environment. Implement fall risk bundle. Provide safe ambulation. Note: Fall bundle in place. Pt educated on fall risk status and verbalizes under standing of interventions. Call light within reach. Problem: Discharge Planning Goal: Participation in plan of care Outcome: Goal Ongoing Flowsheets (Taken 04/10/2020419 by Vivian Wilks, RN) Participation in Plan of Care: Involve patient/caregiver in care planning decisi on making Note: Pt to discharge to facility pending insurance acceptance Goal: Knowledge regarding plan of care Outcome: Goal Ongoing Flowsheets (Taken 04/10/2020419 by Vivian Wilks, RN) Knowledge regarding plan of care: Provide fall prevention education Provide VTE signs and symptoms education Provide plan of care education Provide infection prevention education Provide medication management education Provide procedural and treatment education Goal: Prepared for discharge Outcome: Goal Ongoing Flowsheets (Taken 04/10/2020419 by Vivian Wilks, GORDO) Prepared for discharge: Provide safe use medical equipment education Complete ADL ability assessment Collaborate with multidisciplinary team for hospital discharge coordination Provide diet and oral health education Problem: Anxiety Goal: Alleviation of anxiety Outcome: Goal Ongoing Flowsheets (Taken 04/10/2020419 by Vivian Wilks, RN) Alleviation of Anxiety: Assess coping style Provide relaxation techniques education Provide coping support to patient/caregiver Consider consult for anxiety Provide comfort promotion interventions Provide positive coping methods with education Note: Pt anxious at this time, pt explained that we are here to keep in safe Problem: Mobility/Activity Intolerance Goal: Maximize functional ADL's and mobility outcomes Outcome: Goal Ongoing Flowsheets (Taken 04/10/2020419 by Vivian Wilks, GORDO) Maximize functional ADLs and mobility outcomes: Administer oxygen to maintain SpO2 at approprate levels Manage environmental safety Maintain body position Consider consult for mobility/activity intolerance Manage energy conservation for mobility/activity intolerance Note: Pt able to ambulate with stand by assistance and a walker Problem: Self-Care Deficit Goal: Maximize ADL functioning Outcome: Goal Ongoing * Care Plan - Frida Meier RN - 04/11/2020 10:18 AM CDT Problem: Infection, Risk of Goal: Absence of infection Outcome: Goal Ongoing Problem: Falls, High Risk of Goal: Absence of falls-Adult Patient Outcome: Goal Ongoing Problem: Discharge Planning Goal: Participation in plan of care Outcome: Goal Ongoing Goal: Knowledge regarding plan of care Outcome: Goal Ongoing Goal: Prepared for discharge Outcome: Goal Ongoing Problem: Anxiety Goal: Alleviation of anxiety Outcome: Goal Ongoing Problem: Mobility/Activity Intolerance Goal: Maximize functional ADL's and mobility outcomes Outcome: Goal Ongoing Problem: Self-Care Deficit Goal: Maximize ADL functioning Outcome: Goal Ongoing * Case Mgmt DC Plan - Viri Mills LSCSW - 04/10/2020 9:45 AM CDT Case Management Progress Note NAME:David Rice : 959 AGE: 59 y.o. ADMISSION DATE: 04/07/2020 DAYS ADMITTED: LOS: 1 day Todays Date: 04/10/2020 Plan DC planning ongoing Interventions ? Support ? Info or Referral ? Discharge Planning Spoke with pt, advised [facility] declined admission Discussed options Pt does not want to pursue ST LTC stay only IPR Pt would like referrals sent to [facility] in area Referral sent to [facility] [id number] Received an email from Jaymie Ceja with pt relations explaining pt called h er to pass on a name/number for placement. She advised pt she does not assist w ith this and would pass info on to [facility]. Also pt had passed her name and number to the facility rep, Savannah Jolley, with whom he spoke and she also called Jaymie Called pt in his room but there was no answer. Will f/u Called Savannah Jolley, as provided by Jaymie Nuñez is with [facility] (Not [facility] as email indicated). S he confirmed pt called her about admission Faxed ([phone]) referral to Savannah with [facility] Also looked into [facility] since this was mentioned in the email Looked up number, , spoke with Yodit the swing bed admissions marilyn . This is not an option d/t payor source of [place] only 1300 Spoke with pt to report on progress r/t d/c planning including contact with t facilities he made contact with Advised the swing bed unit at [facility] is not an option/declined admit d/t payor source Explained spoke with Savannah at [facility], about admission and r eferral has been sent Also reminded pt referral has been sent to [facility] 1400 Per Lenka with [facility], pt clinically accepted for admission [facility] will request insurance authorization Notified pt of acceptance at [facility] and pending ins auth Pt acknowledged ? Medication Needs ? Financial ? Legal ? Other Disposition ? Expected Discharge Date Expected Discharge Date: 04/10/20 Expected Discharge Time: 1600 ? Transportation ? Next Level of Care (Acute Psych discharges only) ? Discharge Disposition Durable Medical Equipment No service has been selected for the patient. [facility] Destination No service has been selected for the patient. Home Care No service has been selected for the patient. Dialysis/Infusion No service has been selected for the patient. Viri Mills LMSW [facility] Work[employer] Office: [phone] Pager: [phone] * Care Plan - Jennifer Barajas RN - 04/10/2020 9:43 AM CDT Problem: Infection, Risk of Goal: Absence of infection Outcome: Goal Ongoing Flowsheets (Taken 04/10/2020 0941) Absence of infection: Monitor for signs and symptoms of infection Assess for infection (Monitor SIRS Criteria) Administer pharmacological therapies as ordered Implement prevention measures as indicated Problem: Falls, High Risk of Goal: Absence of falls-Adult Patient Outcome: Goal Ongoing Flowsheets (Taken 04/10/2020 042 by Vivian Wilks RN) Absence of falls-Adult Patient: Complete Fall Risk Assessment. Consider additional interventions if patient is confused, has gait/balance prob lems and on high risk medications. Provide fall prevention strategies. Provde safe environment. Implement fall risk bundle. Provide safe ambulation. Problem: Discharge Planning Goal: Participation in plan of care Outcome: Goal Ongoing Flowsheets (Taken 04/10/2020419 by Vivian Wilks, GORDO) Participation in Plan of Care: Involve patient/caregiver in care planning decisi on making Goal: Knowledge regarding plan of care Outcome: Goal Ongoing Flowsheets (Taken 04/10/2020 042 by Vivian Wilks, RN) Knowledge regarding plan of care: Provide fall prevention education Provide VTE signs and symptoms education Provide plan of care education Provide infection prevention education Provide medication management education Provide procedural and treatment education Goal: Prepared for discharge Outcome: Goal Ongoing Flowsheets (Taken 04/10/2020 0420 by Vivian Wilks, RN) Prepared for discharge: Provide safe use medical equipment education Complete ADL ability assessment Collaborate with multidisciplinary team for hospital discharge coordination Provide diet and oral health education Problem: Anxiety Goal: Alleviation of anxiety Outcome: Goal Ongoing Flowsheets (Taken 04/10/2020 0420 by Vivian Wilks, RN) Alleviation of Anxiety: Assess coping style Provide relaxation techniques education Provide coping support to patient/caregiver Consider consult for anxiety Provide comfort promotion interventions Provide positive coping methods with education Problem: Mobility/Activity Intolerance Goal: Maximize functional ADL's and mobility outcomes Outcome: Goal Ongoing Flowsheets (Taken 04/10/2020419 by Vivian Wilks RN) Maximize functional ADLs and mobility outcomes: Administer oxygen to maintain SpO2 at approprate levels Manage environmental safety Maintain body position Consider consult for mobility/activity intolerance Manage energy conservation for mobility/activity intolerance Problem: Self-Care Deficit Goal: Maximize ADL functioning Outcome: Goal Ongoing * Care Plan - Vivian Wilks RN - 04/10/2020 4:22 AM CDT Problem: Infection, Risk of Goal: Absence of infection Outcome: Goal Ongoing Flowsheets (Taken 04/10/2020419) Absence of infection: Assess for infection (Monitor SIRS Criteria) Implement prevention measures as indicated Monitor for signs and symptoms of infection Administer pharmacological therapies as ordered Goal: Knowledge of Infection Control Procedures Outcome: Goal Achieved Flowsheets (Taken 04/10/2020419) Knowledge of Infection Control procedures: Provide Isolation Precautions Educati on Note: No isolation indicated. Problem: Falls, High Risk of Goal: Absence of falls-Adult Patient Outcome: Goal Ongoing Flowsheets (Taken 04/10/2020419) Absence of falls-Adult Patient: Complete Fall Risk Assessment. Consider additional interventions if patient is confused, has gait/balance prob lems and on high risk medications. Provide fall prevention strategies. Provde safe environment. Implement fall risk bundle. Provide safe ambulation. Goal: Absence of Falls-Pediatric patient Outcome: Goal Achieved Note: Patient is not pediatric status. Problem: Discharge Planning Goal: Participation in plan of care Outcome: Goal Ongoing Flowsheets (Taken 04/10/2020419) Participation in Plan of Care: Involve patient/caregiver in care planning decisi on making Goal: Knowledge regarding plan of care Outcome: Goal Ongoing Flowsheets (Taken 04/10/2020419) Knowledge regarding plan of care: Provide fall prevention education Provide VTE signs and symptoms education Provide plan of care education Provide infection prevention education Provide medication management education Provide procedural and treatment education Goal: Prepared for discharge Outcome: Goal Ongoing Flowsheets (Taken 04/10/2020419) Prepared for discharge: Provide safe use medical equipment education Complete ADL ability assessment Collaborate with multidisciplinary team for hospital discharge coordination Provide diet and oral health education Problem: Anxiety Goal: Alleviation of anxiety Outcome: Goal Ongoing Flowsheets (Taken 04/10/2020 0420) Alleviation of Anxiety: Assess coping style Provide relaxation techniques education Provide coping support to patient/caregiver Consider consult for anxiety Provide comfort promotion interventions Provide positive coping methods with education Problem: Mobility/Activity Intolerance Goal: Maximize functional ADL's and mobility outcomes Outcome: Goal Ongoing Flowsheets (Taken 04/10/2020 0420) Maximize functional ADLs and mobility outcomes: Administer oxygen to maintain SpO2 at approprate levels Manage environmental safety Maintain body position Consider consult for mobility/activity intolerance Manage energy conservation for mobility/activity intolerance Problem: Self-Care Deficit Goal: Maximize ADL functioning Outcome: Goal Ongoing Note: Patient encouraged to perform own ADLs. * Case Mgmt DC Plan - Viri Mills LSCSW - 04/09/2020 12:16 PM CDT Case Management Progress Note NAME:David Rice : 959 AGE: 59 y.o. ADMISSION DATE: 04/07/2020 DAYS ADMITTED: LOS: 1 day Todays Date: 04/09/2020 Plan DC planning ongoing, pt hopes to d/c to [facility] [phone] in [place], [place] when medically stable Interventions ? Support ? Info or Referral ? Discharge Planning Discussed pt in huddle PT/OT evals complete Faxed referral to [facility] [phone] IPR contact is December, , left a message requesting a return call [phone] with [facility] IPR called [facility] Attempted to call pt in his room multiple times but the line was busy Will f/u tomorrow ? Medication Needs ? Financial ? Legal ? Other Disposition ? Expected Discharge Date Expected Discharge Date: 04/09/20 Expected Discharge Time: 1600 ? Transportation ? Next Level of Care (Acute Psych discharges only) ? Discharge Disposition Durable Medical Equipment No service has been selected for the patient. Destination No service has been selected for the patient. Home Care No service has been selected for the patient. Dialysis/Infusion No service has been selected for the patient. Viri Mills LMSW [facility] Work[employer] Office: [phone] Pager: [phone] * Care Plan - Ines Carrera RN - 04/08/2020 5:41 PM CDT Problem: Infection, Risk of Goal: Absence of infection Outcome: Goal Ongoing Goal: Knowledge of Infection Control Procedures Outcome: Goal Ongoing Problem: Falls, High Risk of Goal: Absence of falls-Adult Patient Outcome: Goal Ongoing Goal: Absence of Falls-Pediatric patient Outcome: Goal Ongoing Problem: Discharge Planning Goal: Participation in plan of care Outcome: Goal Ongoing Goal: Knowledge regarding plan of care Outcome: Goal Ongoing Goal: Prepared for discharge Outcome: Goal Ongoing Problem: Anxiety Goal: Alleviation of anxiety Outcome: Goal Ongoing Problem: Mobility/Activity Intolerance Goal: Maximize functional ADL's and mobility outcomes Outcome: Goal Ongoing * Case Mgmt DC Plan - Viri Mills LSCSW - 04/08/2020 2:07 PM CDT Case Management Admission Assessment NAME:David Rice :1960 AGE: 59 y.o. 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 Plan Plan: Case Management Assessment, Assist PRN with SW/NCM Services, Discharge Omega nning for Facility Anticipated Pt lives alone in his home in [place], [place] Hopes to d/c to [facility] at [address] [place] Will contact and send referral after PT/OT evals complete Utilized HCBS for shopping, cooking, cleaning and laundry Uses [id number] [place] [address] - [phone] Patient Address/Phone [address] [facility] [address] (home) Emergency Contact Extended Emergency Contact Information Primary Emergency Contact: Kota Rice Address: [place] [address] Mobile Relation: Son Secondary Emergency Contact: Onur Rice Mobile Relation: Son Fish Butcher needed? No Healthcare Directive Healthcare Directive: No, patient does not have a healthcare directive Would patient like to fill out a (a new) Healthcare Directive?: No, patient decl ined Transportation Does the patient need discharge transport arranged?: Yes Transportation Name, Phone and Availability #1: [id number], Does the patient use Medicaid Transportation?: Yes Expected Discharge Date Expected Discharge Date: 03/28/20 Expected Discharge Time: 1600 Living Situation Prior to Admission Living Arrangements Type of Residence: Home, with [...] system provide 24/7 care if needed?: No Level of Function Prior level of function: Needs assist with ADLs Which ADLs require assistance?: Transfers, shopping, cooking, cleaning, laundry Who assists with ADLs?: HCBS Cognitive Abilities Cognitive Abilities: Alert and Oriented Financial Resources Coverage Primary Insurance: Medicaid(Aetna) Secondary Insurance: No insurance Additional Coverage: RX Source of Income Source Of Income: SSDI Financial Assistance Needed? No needs identified Psychosocial Needs Mental Health Mental Health History: No Substance Use History Substance Use History Screen: No Other No needs identified Current/Previous Services PCP [facility], None, None Pharmacy [address] [place] [phone] Durable Medical Equipment Durable Medical Equipment at home: None Home Health Receiving home health: No Hemodialysis or Peritoneal Dialysis Undergoing hemodialysis or peritoneal dialysis: No Tube/Enteral Feeds Receive tube/enteral feeds: No Infusion Receive infusions: No Private Duty Private duty help used: No Home and Community Based Services Home and community based services: Yes HCBS assistance hours/week: 4 hours a week Services provided: shopping, cooking, cleaning, laundry [facility]: No Hospice Hospice: No Outpatient Therapy PT: No OT: No [employer] PROMOS: No Assisted Facility/Usp SNF: No NH: No Inpatient Rehab IPR: No Long-Term Acute Care Hospital LTACH: No Acute Hospital Stay Acute Hospital Stay: Yes Was patient's stay within the last 30 days?: Yes Name of Hospital: [facility] When did patient receive care?: DC 03/28/20 Readmission Code Group: 9. Unrelated Readmision Viri Mills LMSW [facility] Office: [phone] Pager: [phone] * Care Plan - Nayana Swift RN - 04/08/2020 12:39 AM CDT Problem: Infection, Risk of Goal: Absence of infection Outcome: Goal Ongoing Goal: Knowledge of Infection Control Procedures Outcome: Goal Ongoing Problem: Falls, High Risk of Goal: Absence of falls-Adult Patient Outcome: Goal Ongoing Goal: Absence of Falls-Pediatric patient Outcome: Goal Ongoing Problem: Discharge Planning Goal: Participation in plan of care Outcome: Goal Ongoing Goal: Knowledge regarding plan of care Outcome: Goal Ongoing Goal: Prepared for discharge Outcome: Goal Ongoing Problem: Anxiety Goal: Alleviation of anxiety Outcome: Goal Ongoing documented in this encounter Plan of Treatment [...] nosis HC CBC W/ AUTOMATED DIFF Routine 04/24/2020 4:46 AM CDT HC BASIC METABOLIC PANEL Routine 04/24/2020 4:46 [...] AUTOMATED DIFF Routine 04/19/2020 3:56 AM CDT HC BASIC METABOLIC PANEL Routine 04/19/2020 3:56 AM CDT ECG 12-LEAD STAT 04/19/2020 1:32 AM CDT URINALYSIS, MICROSCOPIC Routine 04/18/2020 5:10 PM CDT HC URINALYSIS, AUTO W Routine 04/18/2020 MICRO 5:10 PM CDT HC CBC W/ AUTOMATED DIFF Routine 04/18/2020 4:46 PM CDT HC TSH(THYROID Routine 04/18/2020 STIMULATING HORM) 4:46 PM CDT HC COMPREHENSIVE Routine 04/18/2020 METABOLIC PANEL 4:46 PM CDT HC CBC W/ AUTOMATED DIFF Routine 04/18/2020 7:53 AM CDT HC BASIC METABOLIC PANEL Routine 04/18/2020 7:53 AM CDT HC CBC W/ AUTOMATED DIFF Routine 04/17/2020 4:28 AM CDT HC BASIC METABOLIC PANEL Routine 04/17/2020 4:28 AM CDT ECG 12-LEAD Routine 04/16/2020 12:40 AM CDT HC CBC,AUTOMATED 04/14/2020 8:08 AM CDT HC BASIC METABOLIC PANEL 04/14/2020 8:08 AM CDT HC BASIC METABOLIC PANEL Routine 04/12/2020 6:24 PM CDT HC CBC W/ AUTOMATED DIFF Routine 04/10/2020 3:44 AM CDT HC COMPREHENSIVE Routine 04/10/2020 METABOLIC PANEL 3:44 AM CDT HC TROPONIN-I STAT 04/09/2020 2:30 PM CDT ECG 12-LEAD STAT 04/09/2020 2:07 PM CDT HC CBC W/ AUTOMATED DIFF Routine 04/09/2020 4:06 AM CDT HC COMPREHENSIVE Routine 04/09/2020 METABOLIC PANEL 4:06 AM CDT CULTURE-BLOOD Routine 04/08/2020 W/SENSITIVITY 4:12 PM CDT HC CULTURE-BLOOD Routine 04/08/2020 4:00 PM CDT HC CBC W/ AUTOMATED DIFF Routine 04/08/2020 4:47 AM CDT HC COMPREHENSIVE Routine 04/08/2020 METABOLIC PANEL 4:47 AM CDT ECG 12-LEAD STAT 04/07/2020 6:39 AM CDT HC TROPONIN-I STAT 04/07/2020 6:[address] HEAD WO CONTRAST STAT 04/07/2020 6:02 AM CDT TROPONIN-I STAT 04/07/2020 4:15 AM CDT COVID-19 (SARS-COV-2) PCR Routine 04/07/2020 2:45 AM CDT HC *FREE T4 (REFLEX) Routine 04/07/2020 2:45 AM CDT HC TSH SCREEN Routine 04/07/2020 2:45 AM CDT HC TROPONIN-I STAT 04/07/2020 2:45 AM CDT HC PT(INR) Routine 04/07/2020 2:45 AM CDT HC CBC W/ AUTOMATED DIFF Routine 04/07/2020 2:45 AM CDT HC PHOSPHOROUS, SERUM Routine 04/07/2020 2:45 AM CDT HC B-TYPE NATRIURETIC Routine 04/07/2020 PEPTIDE 2:45 AM CDT HC MAGNESIUM Routine 04/07/2020 2:45 AM CDT HC HEMOGLOBIN A1C Routine 04/07/2020 2:45 AM CDT HC Routine 04/07/2020 LIPID-5:CHOL/TRG/HDL/LDL+ 2:45 AM CDT VLDL HC COMPREHENSIVE Routine 04/07/2020 METABOLIC PANEL 2:45 AM CDT TELEMETRY STRIPS-SCAN 04/07/2020 12:00 AM CDT TELEMETRY STRIPS-SCAN 04/07/2020 12:00 AM CDT ECG-SCAN 04/07/2020 12:00 AM CDT ECG-SCAN 04/07/2020 12:00 AM CDT ECG-SCAN 04/07/2020 12:00 AM CDT ECG-SCAN 04/07/2020 12:[address] HEAD EXTERNAL IMAGING Routine 04/06/2020 12:05 AM CDT GENERAL RAD CHEST Routine 04/06/2020 EXTERNAL IMAGING 12:00 AM CDT documented in this encounter Results * BASIC METABOLIC PANEL (04/24/2020 4:46 AM CDT) Pathologist [facility] Sodium 142 [...] >60 >60 mL/min [facility] Comment: [place] The eGFR is not validated f or use in drug dosing adjustments. Continue to use estimated creatinine clearance per dosing reference text. Please contact the Clinical Pharmacist for questions. eGFR >60 >60 mL/min [facility] [place] Comment: The eGFR is not validated for use in drug dosing adjustments. Continue to use estimated creatinine clearance per dosing reference text. Please contact the Clinical Pharmacist for questions. Specimen Blood Performing Organization Address City/State/Zipcode Ph one Number [facility] [address] [place] [address] * CBC AND DIFF (04/24/2020 4:46 AM CDT) Pathologist [facility] White Blood 8.2 4.5 - 11.0 K/UL [...] Basophil Count Specimen Blood Performing Organization Address City/[facility] one Number [facility] [address] [place] [address] * BASIC METABOLIC PANEL (04/23/2020 4:01 AM CDT) Sodium 141 137 - 147 MMOL/L [facility] Potassium 3.8 3.5 - 5.1 MMOL/L [facility] Chloride 107 98 - 110 MMOL/L [facility] CO2 28 21 - 30 MMOL/L [facility] Anion Gap 6 3 - 12 [facility] Glucose 86 70 - 100 MG/DL [facility] Blood Urea 13 7 - 25 MG/DL [facility] Nitrogen Creatinine 1.09 0.4 - 1.24 MG/DL [facility] Calcium 8.8 8.5 - 10.6 MG/DL [facility] eGFR Non >60 >60 mL/min [facility] Comment: [place] The eGFR is not validated f or use in drug dosing adjustments. Continue to use estimated creatinine clearance per dosing reference text. Please contact the Clinical Pharmacist for questions. eGFR >60 >60 mL/min [facility] [place] Comment: The eGFR is not validated for use in drug dosing adjustments. Continue to use estimated creatinine clearance per dosing reference text. Please contact the Clinical Pharmacist for questions. Specimen Blood Performing Organization Address City/[facility] Ph one Number [facility] [address] [place] [address] * CBC AND DIFF (04/23/2020 4:01 AM CDT) White Blood 7.0 4.5 - 11.0 K/UL [facility] Cells RBC 3.89 (L) 4.4 - 5.5 M/UL [facility] Hemoglobin 11.1 (L) 13.5 - 16.5 GM/DL [facility] Hematocrit 32.0 (L) 40 - 50 % [facility] MCV 82.2 80 - 100 FL [facility] MCH 28.5 26 - 34 PG [facility] MCHC 34.6 32.0 - 36.0 G/DL [facility] RDW 15.1 (H) 11 - 15 % [facility] Platelet Count 411 (H) 150 - 400 K/UL [facility] [...] - 2 % [facility] Absolute 4.10 1.8 - 7.0 K/UL [facility] Neutrophil Count Absolute Lymph 1.32 1.0 - 4.8 K/UL [facility] Count Absolute 0.96 (H) 0 - 0.80 K/UL [facility] Monocyte Count Absolute 0.53 (H) 0 - 0.45 K/UL [facility] Eosinophil Count Absolute 0.09 0 - 0.20 K/UL [facility] Basophil Count Specimen Blood Performing Organization Address City/State/Zipcode Ph one Number [facility] [address] [place] [address] * BASIC METABOLIC PANEL (04/22/2020 3:52 AM CDT) Sodium 141 137 - 147 MMOL/L [facility] Potassium 3.7 3.5 - 5.1 MMOL/L [facility] Chloride 107 98 - 110 MMOL/L [facility] CO2 27 21 - 30 MMOL/L [facility] Anion Gap 7 3 - 12 [facility] Glucose 86 70 - 100 MG/DL [facility] Blood Urea 12 7 - 25 MG/DL [facility] Nitrogen Creatinine 1.24 0.4 - 1.24 MG/DL [facility] Calcium 8.9 8.5 - 10.6 MG/DL [facility] eGFR Non 59 (L) >60 mL/min [facility] Comment: [place] The eGFR is not validated f or use in drug dosing adjustments. Continue to use estimated creatinine clearance per dosing reference text. Please contact the Clinical Pharmacist for questions. eGFR >60 >60 mL/min [facility] [place] Comment: The eGFR is not validated for use in drug dosing adjustments. Continue to use estimated creatinine clearance per dosing reference text. Please contact the Clinical Pharmacist for questions. Specimen Blood Performing Organization Address City/State/Zipcode Ph one Number [facility] [address] [place] [address] * CBC AND DIFF (04/22/2020 3:52 AM CDT) White Blood 9.0 4.5 - 11.0 K/UL [facility] Cells RBC 3.71 (L) 4.4 - 5.5 M/UL [facility] Hemoglobin 10.3 (L) 13.5 - 16.5 GM/DL [facility] Hematocrit 30.2 (L) 40 - 50 % [facility] MCV 81.5 80 - 100 FL [facility] MCH 27.9 26 - 34 PG [facility] MCHC 34.2 32.0 - 36.0 G/DL [facility] RDW 14.8 11 - 15 % [facility] Platelet Count 406 (H) 150 - 400 K/UL [facility] [...] - 2 % [facility] Absolute 5.62 1.8 - 7.0 K/UL [facility] Neutrophil Count Absolute Lymph 1.66 1.0 - 4.8 K/UL [facility] Count Absolute 1.14 (H) 0 - 0.80 K/UL [facility] Monocyte Count Absolute 0.45 0 - 0.45 K/UL [facility] Eosinophil Count Absolute 0.10 0 - 0.20 K/UL [facility] Basophil Count Specimen Blood Performing Organization Address City/State/Zipcode Ph one Number [facility] [address] [place] [address] * BASIC METABOLIC PANEL (04/21/2020 3:45 AM CDT) Sodium 139 137 - 147 MMOL/L [facility] Potassium 3.7 3.5 - 5.1 MMOL/L [facility] Chloride 105 98 - 110 MMOL/L [facility] CO2 26 21 - 30 MMOL/L [facility] Anion Gap 8 3 - 12 [facility] Glucose 98 70 - 100 MG/DL [facility] Blood Urea 12 7 - 25 MG/DL [facility] Nitrogen Creatinine 1.22 0.4 - 1.24 MG/DL [facility] Calcium 8.7 8.5 - 10.6 MG/DL [facility] eGFR Non >60 >60 mL/min [facility] Comment: [place] The eGFR is not validated f or use in drug dosing adjustments. Continue to use estimated creatinine clearance per dosing reference text. Please contact the Clinical Pharmacist for questions. eGFR >60 >60 mL/min [facility] [place] Comment: The eGFR is not validated for use in drug dosing adjustments. Continue to use estimated creatinine clearance per dosing reference text. Please contact the Clinical Pharmacist for questions. Specimen Blood Performing Organization Address City/State/[facility] one Number [facility] [address] [place] [address] * CBC AND DIFF (04/21/2020 3:45 AM CDT) White Blood 9.4 4.5 - 11.0 K/UL [facility] Cells RBC 3.82 (L) 4.4 - 5.5 M/UL [facility] Hemoglobin 10.8 (L) 13.5 - 16.5 GM/DL [facility] Hematocrit 31.4 (L) 40 - 50 % [facility] MCV 82.0 80 - 100 FL [facility] MCH 28.3 26 - 34 PG [facility] MCHC 34.5 32.0 - 36.0 G/DL [facility] [...] - 2 % [facility] Absolute 6.37 1.8 - 7.0 K/UL [facility] Neutrophil Count Absolute Lymph 1.43 1.0 - 4.8 K/UL [facility] Count Absolute 1.10 (H) 0 - 0.80 K/UL [facility] Monocyte Count Absolute 0.42 0 - 0.45 K/UL [facility] Eosinophil Count Absolute 0.08 0 - 0.20 K/UL [facility] Basophil Count Specimen Blood Performing Organization Address City/State/Zipcode Ph one Number [facility] [address] [place] [address] * BASIC METABOLIC PANEL (04/20/2020 4:14 AM CDT) Pathologist [facility] Sodium 142 137 - 147 MMOL/L [facility] Potassium 4.1 3.5 - 5.1 MMOL/L [facility] Chloride 109 98 - 110 MMOL/L [facility] CO2 25 21 - 30 MMOL/L [facility] Anion Gap 8 3 - 12 [facility] Glucose 84 70 - 100 MG/DL [facility] Blood Urea 10 7 - 25 MG/DL [facility] Nitrogen Creatinine 1.11 0.4 - 1.24 MG/DL [facility] Calcium 8.8 8.5 - 10.6 MG/DL [facility] eGFR Non >60 >60 mL/min [facility] Comment: [place] The eGFR is not validated f or use in drug dosing adjustments. Continue to use estimated creatinine clearance per dosing reference text. Please contact the Clinical Pharmacist for questions. eGFR >60 >60 mL/min [facility] [place] Comment: The eGFR is not validated for use in drug dosing adjustments. Continue to use estimated creatinine clearance per dosing reference text. Please contact the Clinical Pharmacist for questions. Specimen Blood Performing Organization Address [facility]/Zipcode Ph one Number [facility] [address] [place] [address] * CBC AND DIFF (04/20/2020 4:14 AM CDT) Pathologist [facility] White Blood 8.4 4.5 - 11.0 K/UL [facility] Cells RBC 3.87 (L) 4.4 - 5.5 M/UL [facility] Hemoglobin 10.7 (L) 13.5 - 16.5 GM/DL [facility] Hematocrit 31.3 (L) 40 - 50 % [facility] MCV 80.7 80 - 100 FL [facility] MCH 27.6 26 - 34 PG [facility] MCHC 34.2 32.0 - 36.0 G/DL [facility] RDW 15.4 (H) 11 - 15 % [facility] Platelet Count 373 150 - 400 K/UL [facility] MPV 8.5 7 - 11 FL [facility] Neutrophils 64 41 - 77 % [facility] Lymphocytes 19 (L) 24 - 44 % [facility] Monocytes 11 4 - 12 % [facility] Eosinophils 5 0 - 5 % [facility] Basophils 1 0 - 2 % [facility] Absolute 5.42 1.8 - 7.0 K/UL [facility] Neutrophil Count Absolute Lymph 1.55 1.0 - 4.8 K/UL [facility] Count Absolute 0.93 (H) 0 - 0.80 K/UL [facility] Monocyte Count Absolute 0.40 0 - 0.45 K/UL [facility] Eosinophil Count Absolute 0.10 0 - 0.20 K/UL [facility] Basophil Count Specimen Blood Performing Organization Address City/[facility] Ph one Number [facility] [address] [place] [address] * BASIC METABOLIC PANEL (04/19/2020 3:56 AM CDT) Sodium 141 137 - 147 MMOL/L [facility] Potassium 3.8 3.5 - 5.1 MMOL/L [facility] Chloride 107 98 - 110 MMOL/L [facility] CO2 24 21 - 30 MMOL/L [facility] Anion Gap 10 3 - 12 [facility] Glucose 100 70 - 100 MG/DL [facility] Blood Urea 13 7 - 25 MG/DL [facility] Nitrogen Creatinine 1.21 0.4 - 1.24 MG/DL [facility] Calcium 8.8 8.5 - 10.6 MG/DL [facility] eGFR Non >60 >60 mL/min [facility] Comment: [place] The eGFR is not validated f or use in drug dosing adjustments. Continue to use estimated creatinine clearance per dosing reference text. Please contact the Clinical Pharmacist for questions. eGFR >60 >60 mL/min [facility] [place] Comment: The eGFR is not validated for use in drug dosing adjustments. Continue to use estimated creatinine clearance per dosing reference text. Please contact the Clinical Pharmacist for questions. Specimen Blood Performing Organization Address City/[facility] Ph one Number [facility] [address] [place] [address] * CBC AND DIFF (04/19/2020 3:56 AM CDT) White Blood 9.3 4.5 - 11.0 K/UL [facility] Cells RBC 3.92 (L) 4.4 - 5.5 M/UL [facility] Hemoglobin 10.8 (L) 13.5 - 16.5 GM/DL [facility] Hematocrit 31.8 (L) 40 - 50 % [facility] MCV 81.2 80 - 100 FL [facility] MCH 27.6 26 - 34 PG [facility] MCHC 34.0 32.0 - 36.0 G/DL [facility] RDW 15.2 (H) 11 - 15 % [facility] Platelet Count 348 150 - 400 K/UL [facility] MPV 8.7 7 - 11 FL [facility] Neutrophils 64 41 - 77 % [facility] Lymphocytes 19 (L) 24 - 44 % [facility] Monocytes 12 4 - 12 % [facility] Eosinophils 4 0 - 5 % [facility] Basophils 1 0 - 2 % [facility] Absolute 5.97 1.8 - 7.0 K/UL [facility] Neutrophil Count Absolute Lymph 1.79 1.0 - 4.8 K/UL [facility] Count Absolute 1.12 (H) 0 - 0.80 K/UL [facility] Monocyte Count Absolute 0.41 0 - 0.45 K/UL [facility] Eosinophil Count Absolute 0.04 0 - 0.20 K/UL [facility] Basophil Count Specimen Blood Performing Organization Address [facility] Ph one Number [facility] [address] [place] [phone] * URINALYSIS, MICROSCOPIC (04/18/2020 5:10 PM CDT) WBCs,UA 0-2 0 - 2 /HPF [facility] RBCs,UA NONE 0 - 3 /HPF [facility] Specimen Urine - Urine Performing Organization Address [facility] Ph one Number [facility] [address] [place] [address] * URINALYSIS DIPSTICK (04/18/2020 5:10 PM CDT) Color,UA STRAW [facility] Turbidity,UA CLEAR CLEAR-CLEAR [facility] Specific 1.004 1.003 - 1.035 [facility] [place]-Urine pH,UA 7.0 5.0 - 8.0 [facility] [...] - Urine Performing Organization Address [facility] one Number [facility] [address] [place] [address] * THYROID STIMULATING HORMONE-TSH (04/18/2020 4:46 PM CDT) TSH 1.95 0.35 - 5.00 MCU/ML [facility] Specimen Blood Performing Organization Address [facility] one Number [facility] [address] [place] [address] * CBC AND DIFF (04/18/2020 4:46 PM CDT) Pathologist [facility] White Blood 9.1 4.5 - 11.0 K/UL [facility] Cells RBC 4.01 (L) 4.4 - 5.5 M/UL [facility] Hemoglobin 11.1 (L) 13.5 - 16.5 GM/DL [facility] Hematocrit 32.9 (L) 40 - 50 % [facility] MCV 82.0 80 - 100 FL [facility] MCH 27.8 26 - 34 PG [facility] MCHC 33.9 32.0 - 36.0 G/DL [facility] RDW 15.0 11 - 15 % [facility] Platelet Count 383 150 - 400 K/UL [facility] MPV 8.2 7 - 11 FL [facility] Neutrophils 66 41 - 77 % [facility] Lymphocytes 17 (L) 24 - 44 % [facility] Monocytes 12 4 - 12 % [facility] Eosinophils 4 0 - 5 % [facility] Basophils 1 0 - 2 % [facility] Absolute 5.96 1.8 - 7.0 K/UL [facility] Neutrophil Count Absolute Lymph 1.56 1.0 - 4.8 K/UL [facility] Count Absolute 1.06 (H) 0 - 0.80 K/UL [facility] Monocyte Count Absolute 0.38 0 - 0.45 K/UL [facility] Eosinophil Count Absolute 0.11 0 - 0.20 K/UL [facility] Basophil Count Specimen Blood Performing Organization Address [facility] one Number [facility] [address] [place] [address] * COMPREHENSIVE METABOLIC PANEL (04/18/2020 4:46 PM CDT) Sodium 142 137 - 147 [...] (L) >60 mL/min [facility] Comment: [place] The eGFR is not validated f or use in drug dosing adjustments. Continue to use estimated creatinine clearance per dosing reference text. Please contact the Clinical Pharmacist for questions. eGFR >60 >60 mL/min [facility] [place] Comment: The eGFR is not validated for use in drug dosing adjustments. Continue to use estimated creatinine clearance per dosing reference text. Please contact the Clinical Pharmacist for questions. Specimen Blood Performing Organization Address City/State/Zipcode Ph one Number [facility] [address] [place] [address] * BASIC METABOLIC PANEL (04/18/2020 7:53 AM CDT) Sodium 141 137 - 147 [...] 25 MG/DL [facility] Nitrogen Creatinine 1.19 0.4 - 1.24 MG/DL [facility] Calcium 9.1 8.5 - 10.6 MG/DL [facility] eGFR Non >60 >60 mL/min [facility] Comment: [place] The eGFR is not validated f or use in drug dosing adjustments. Continue to use estimated creatinine clearance per dosing reference text. Please contact the Clinical Pharmacist for questions. eGFR >60 >60 mL/min [facility] [place] Comment: The eGFR is not validated for use in drug dosing adjustments. Continue to use estimated creatinine clearance per dosing reference text. Please contact the Clinical Pharmacist for questions. Specimen Blood Performing Organization Address [facility] one Number [facility] [address] [place] [address] * CBC AND DIFF (04/18/2020 7:53 AM CDT) White Blood 7.9 4.5 - 11.0 K/UL [facility] Cells RBC 3.91 (L) 4.4 - 5.5 M/UL [facility] Hemoglobin 11.0 (L) 13.5 - 16.5 GM/DL [facility] Hematocrit 32.2 (L) 40 - 50 % [facility] MCV 82.3 80 - 100 FL [facility] MCH 28.2 26 - 34 PG [facility] MCHC 34.2 32.0 - 36.0 G/DL [facility] RDW 15.3 (H) 11 - 15 % [facility] Platelet Count 341 150 - 400 K/UL [facility] [...] - 2 % [facility] Absolute 5.44 1.8 - 7.0 K/UL [facility] Neutrophil Count Absolute Lymph 0.92 (L) 1.0 - 4.8 K/UL [facility] Count Absolute 1.04 (H) 0 - 0.80 K/UL [facility] Monocyte Count Absolute 0.37 0 - 0.45 K/UL [facility] Eosinophil Count Absolute 0.10 0 - 0.20 K/UL [facility] Basophil Count Specimen Blood Performing Organization Address City/[facility] one Number [facility] [address] [place] [address] * BASIC METABOLIC PANEL (04/17/2020 4:28 AM CDT) Pathologist [facility] Sodium 138 137 - 147 MMOL/L [facility] Potassium 4.2 3.5 - 5.1 MMOL/L [facility] Chloride 105 98 - 110 MMOL/L [facility] CO2 27 21 - 30 MMOL/L [facility] Anion Gap 6 3 - 12 [facility] Glucose 97 70 - 100 MG/DL [facility] Blood Urea 10 7 - 25 MG/DL [facility] Nitrogen Creatinine 1.25 (H) 0.4 - 1.24 MG/DL [facility] Calcium 8.7 8.5 - 10.6 MG/DL [facility] eGFR Non 59 (L) >60 mL/min [facility] Comment: [place] The eGFR is not validated f or use in drug dosing adjustments. Continue to use estimated creatinine clearance per dosing reference text. Please contact the Clinical Pharmacist for questions. eGFR >60 >60 mL/min [facility] [place] Comment: The eGFR is not validated for use in drug dosing adjustments. Continue to use estimated creatinine clearance per dosing reference text. Please contact the Clinical Pharmacist for questions. Specimen Blood Performing Organization Address City/State/Zipcode Ph one Number [facility] [address] [place] [address] * CBC AND DIFF (04/17/2020 4:28 AM CDT) Pathologist [facility] White Blood 6.6 4.5 - 11.0 K/UL [facility] Cells RBC 3.83 (L) 4.4 - 5.5 M/UL [facility] Hemoglobin 10.6 (L) 13.5 - 16.5 GM/DL [facility] Hematocrit 31.7 (L) 40 - 50 % [facility] MCV 82.8 80 - 100 FL [facility] MCH 27.7 26 - 34 PG [facility] MCHC 33.5 32.0 - 36.0 G/DL [facility] RDW 15.0 11 - 15 % [facility] Platelet Count 317 150 - 400 K/UL [facility] MPV 8.1 7 - 11 FL [facility] Neutrophils 55 41 - 77 % [facility] Lymphocytes 26 24 - 44 % [facility] Monocytes 13 (H) 4 - 12 % [facility] Eosinophils 5 0 - 5 % [facility] Basophils 1 0 - 2 % [facility] Absolute 3.66 1.8 - 7.0 K/UL [facility] Neutrophil Count Absolute Lymph 1.73 1.0 - 4.8 K/UL [facility] Count Absolute 0.87 (H) 0 - 0.80 K/UL [facility] Monocyte Count Absolute 0.31 0 - 0.45 K/UL [facility] Eosinophil Count Absolute 0.07 0 - 0.20 K/UL [facility] Basophil Count Specimen Blood Performing Organization Address [facility] Ph one Number [facility] [address] [place] [address] * CBC (04/14/2020 8:08 AM CDT) Pathologist [facility] White Blood [...] LAB Specimen Performing Organization Address [facility] Ph one Number [facility] [address] [place] [address] * BASIC METABOLIC PANEL (04/14/2020 8:08 AM CDT) Pathologist [facility] Sodium 142 137 - 147 MMOL/L [facility] Potassium 4.3 3.5 - 5.1 MMOL/L [facility] Chloride 108 98 - 110 MMOL/L [facility] CO2 27 21 - 30 MMOL/L [facility] Anion Gap 7 3 - 12 [facility] Glucose 92 70 - 100 MG/DL [facility] Blood Urea 10 7 - 25 MG/DL [facility] Nitrogen Creatinine 1.20 0.4 - 1.24 MG/DL [facility] Calcium 8.9 8.5 - 10.6 MG/DL [facility] eGFR Non >60 >60 mL/min [facility] Comment: [place] The eGFR is not validated f or use in drug dosing adjustments. Continue to use estimated creatinine clearance per dosing reference text. Please contact the Clinical Pharmacist for questions. eGFR >60 >60 mL/min [facility] [place] Comment: The eGFR is not validated for use in drug dosing adjustments. Continue to use estimated creatinine clearance per dosing reference text. Please contact the Clinical Pharmacist for questions. Specimen Performing Organization Address [facility] one Number [facility] [address] [place] [address] * BASIC METABOLIC PANEL (04/12/2020 6:24 PM CDT) Sodium 138 137 - 147 MMOL/L [facility] Potassium 4.3 3.5 - 5.1 MMOL/L [facility] Chloride 104 98 - 110 MMOL/L [facility] CO2 26 21 - 30 MMOL/L [facility] Anion Gap 8 3 - 12 [facility] Glucose 106 (H) 70 - 100 MG/DL [facility] Blood Urea 15 7 - 25 MG/DL [facility] Nitrogen Creatinine 1.19 0.4 - 1.24 MG/DL [facility] Calcium 9.1 8.5 - 10.6 MG/DL [facility] eGFR Non >60 >60 mL/min [facility] Comment: [place] The eGFR is not validated f or use in drug dosing adjustments. Continue to use estimated creatinine clearance per dosing reference text. Please contact the Clinical Pharmacist for questions. eGFR >60 >60 mL/min [facility] [place] Comment: The eGFR is not validated for use in drug dosing adjustments. Continue to use estimated creatinine clearance per dosing reference text. Please contact the Clinical Pharmacist for questions. Specimen Blood Performing Organization Address [facility] one Number [facility] [address] [place] [address] * COMPREHENSIVE METABOLIC PANEL (04/10/2020 3:44 AM CDT) Sodium 138 137 - 147 MMOL/L [facility] Potassium 3.5 3.5 - 5.1 MMOL/L [facility] Chloride 105 98 - 110 MMOL/L [facility] Glucose 118 (H) 70 - 100 MG/DL [facility] Blood Urea 11 7 - 25 MG/DL [facility] Nitrogen Creatinine 1.06 0.4 - 1.24 MG/DL [facility] Calcium 9.0 8.5 - 10.6 MG/DL [facility] Total Protein 5.8 (L) 6.0 - 8.0 G/DL [facility] Total Bilirubin 0.3 0.3 - 1.2 MG/DL [facility] Albumin 3.4 (L) 3.5 - 5.0 G/DL [facility] Alk Phosphatase 82 25 - 110 U/L [facility] AST (SGOT) 13 7 - 40 U/L [facility] CO2 24 21 - 30 MMOL/L [facility] ALT (SGPT) 13 7 - 56 U/L [facility] Anion Gap 9 3 - 12 [facility] eGFR Non >60 >60 mL/min [facility] Comment: [place] The eGFR is not validated f or use in drug dosing adjustments. Continue to use estimated creatinine clearance per dosing reference text. Please contact the Clinical Pharmacist for questions. eGFR >60 >60 mL/min [facility] [place] Comment: The eGFR is not validated for use in drug dosing adjustments. Continue to use estimated creatinine clearance per dosing reference text. Please contact the Clinical Pharmacist for questions. Specimen Performing Organization Address City/State/Zipcode Ph one Number [facility] [address] [place] [address] * CBC AND DIFF (04/10/2020 3:44 AM CDT) White Blood 7.8 4.5 - 11.0 K/UL [facility] Cells RBC 3.95 (L) 4.4 - 5.5 M/UL [facility] Hemoglobin 11.1 (L) 13.5 - 16.5 GM/DL [facility] Hematocrit 32.8 (L) 40 - 50 % [facility] MCV 82.9 80 - 100 FL [facility] MCH 28.2 26 - 34 PG [facility] MCHC 34.0 32.0 - 36.0 G/DL [facility] RDW 15.2 (H) 11 - 15 % [facility] Platelet Count 419 (H) 150 - 400 K/UL [facility] MPV 8.4 7 - 11 FL [facility] Neutrophils 64 41 - 77 % [facility] Lymphocytes 16 (L) 24 - 44 % [facility] Monocytes 11 4 - 12 % [facility] Eosinophils 8 (H) 0 - 5 % [facility] Basophils 1 0 - 2 % [facility] Absolute 4.96 1.8 - 7.0 K/UL [facility] Neutrophil Count Absolute Lymph 1.24 1.0 - 4.8 K/UL [facility] Count Absolute 0.89 (H) 0 - 0.80 K/UL [facility] Monocyte Count Absolute 0.62 (H) 0 - 0.45 K/UL [facility] Eosinophil Count Absolute 0.09 0 - 0.20 K/UL [facility] Basophil Count Specimen Performing Organization Address [facility] one Number [facility] [address] [place] [address] * TROPONIN-I (04/09/2020 2:30 PM CDT) Pathologist [facility] Troponin-I 0.04 0.0 - 0.05 NG/ML [facility] Specimen Blood Performing Organization Address [facility] one Number [facility] [address] [place] [address] * COMPREHENSIVE METABOLIC PANEL (04/09/2020 4:06 AM CDT) Pathologist [facility] Sodium 142 137 - 147 MMOL/L [facility] Potassium 3.5 3.5 - 5.1 MMOL/L [facility] Chloride 109 98 - 110 MMOL/L [facility] Glucose 100 70 - 100 MG/DL [facility] Blood Urea 16 7 - 25 MG/DL [facility] Nitrogen Creatinine 1.27 (H) 0.4 - 1.24 MG/DL [facility] Calcium 8.8 8.5 - 10.6 MG/DL [facility] Total Protein 5.6 (L) 6.0 - 8.0 G/DL [facility] Total Bilirubin 0.3 0.3 - 1.2 MG/DL [facility] Albumin 3.3 (L) 3.5 - 5.0 G/DL [facility] Alk Phosphatase 88 25 - 110 U/L [facility] AST (SGOT) 13 7 - 40 U/L [facility] CO2 23 21 - 30 MMOL/L [facility] ALT (SGPT) 14 7 - 56 U/L [facility] Anion Gap 10 3 - 12 [facility] eGFR Non 58 (L) >60 mL/min [facility] Comment: [place] The eGFR is not validated f or use in drug dosing adjustments. Continue to use estimated creatinine clearance per dosing reference text. Please contact the Clinical Pharmacist for questions. eGFR >60 >60 mL/min [facility] [place] Comment: The eGFR is not validated for use in drug dosing adjustments. Continue to use estimated creatinine clearance per dosing reference text. Please contact the Clinical Pharmacist for questions. Specimen Performing Organization Address [facility] Number MAIN LAB [address] [place] [address] * CBC AND DIFF (04/09/2020 4:06 AM CDT) White Blood 6.9 4.5 - 11.0 K/UL [facility] Cells RBC 3.83 (L) 4.4 - 5.5 M/UL [facility] Hemoglobin 10.8 (L) 13.5 - 16.5 GM/DL [facility] Hematocrit 31.7 (L) 40 - 50 % [facility] MCV 82.8 80 - 100 FL [facility] MCH 28.3 26 - 34 PG [facility] MCHC 34.2 32.0 - 36.0 G/DL [facility] RDW 15.2 (H) 11 - 15 % [facility] Platelet Count 437 (H) 150 - 400 K/UL [facility] MPV 8.3 7 - 11 FL [facility] Neutrophils 55 41 - 77 % [facility] Lymphocytes 19 (L) 24 - 44 % [facility] Monocytes 15 (H) 4 - 12 % [facility] Eosinophils 10 (H) 0 - 5 % [facility] Basophils 1 0 - 2 % [facility] Absolute 3.80 1.8 - 7.0 K/UL [facility] Neutrophil Count Absolute Lymph 1.32 1.0 - 4.8 K/UL [facility] Count Absolute 1.04 (H) 0 - 0.80 K/UL [facility] Monocyte Count Absolute 0.70 (H) 0 - 0.45 K/UL [facility] Eosinophil Count Absolute 0.08 0 - 0.20 K/UL [facility] Basophil Count Specimen Performing Organization Address [facility] Ph one Number MAIN LAB [address] [place] [address] * CULTURE-BLOOD W/SENSITIVITY (04/08/2020 4:12 PM CDT) Battery Name BLOOD CULTURE [facility] Specimen BLOOD [facility] Description RIGHT H Special NONE [facility] Requests Culture NO GROWTH 5 DAYS [facility] Report Status FINAL [facility] 04/14/2020 Specimen Blood Performing Organization Address [facility] Number MA[facility] LAB [address] [place] [address] * CULTURE-BLOOD W/SENSITIVITY (04/08/2020 4:00 PM CDT) Pathologist [facility] Battery Name BLOOD CULTURE MAIN LAB Specimen BLOOD MAIN LAB Description LEFT ANTECUBITAL Special NONE MAIN LAB Requests Culture NO GROWTH 5 DAYS MAIN LAB Report Status FINAL MAIN LAB 04/14/2020 Specimen Blood Performing Organization Address [facility] one Number MAIN LAB [address] [place] [address] * COMPREHENSIVE METABOLIC PANEL (04/08/2020 4:47 AM CDT) Pathologist [facility] Sodium 141 137 - 147 MMOL/L MAIN LAB Potassium 4.2 3.5 - 5.1 MMOL/L [facility] Chloride 109 98 - 110 MMOL/L [facility] Glucose 84 70 - 100 MG/DL [facility] Blood Urea 13 7 - 25 MG/DL [facility] Nitrogen Creatinine 1.19 0.4 - 1.24 MG/DL [facility] Calcium 9.0 8.5 - 10.6 MG/DL [facility] Total Protein 5.9 (L) 6.0 - 8.0 G/DL [facility] Total Bilirubin 0.4 0.3 - 1.2 MG/DL [facility] Albumin 3.4 (L) 3.5 - 5.0 G/DL [facility] Alk Phosphatase 95 25 - 110 U/L [facility] AST (SGOT) 15 7 - 40 U/L [facility] CO2 23 21 - 30 MMOL/L [facility] ALT (SGPT) 16 7 - 56 U/L [facility] Anion Gap 9 3 - 12 MAIN LAB eGFR Non >60 >60 mL/min MAIN LAB Comment: [place] The eGFR is not validated f or use in drug dosing adjustments. Continue to use estimated creatinine clearance per dosing reference text. Please contact the Clinical Pharmacist for questions. eGFR >60 >60 mL/min MAIN LAB [place] Comment: The eGFR is not validated for use in drug dosing adjustments. Continue to use estimated creatinine clearance per dosing reference text. Please contact the Clinical Pharmacist for questions. Specimen Performing Organization Address [facility] one Number MAIN LAB [address] [place] [address] * CBC AND DIFF (04/08/2020 4:47 AM CDT) Pathologist [facility] White Blood 6.7 4.5 - 11.0 K/UL MAIN LAB Cells RBC 4.13 (L) 4.4 - 5.5 M/UL [facility] Hemoglobin 11.4 (L) 13.5 - 16.5 GM/DL MAIN LAB Hematocrit 34.1 (L) 40 - 50 % [facility] MCV 82.6 80 - 100 FL MAIN LAB MCH 27.7 26 - 34 PG MAIN LAB MCHC 33.6 32.0 - 36.0 G/DL [facility] RDW 15.2 (H) 11 - 15 % [facility] Platelet Count 502 (H) 150 - 400 K/UL MAIN LAB MPV 8.4 7 - 11 FL MAIN LAB Neutrophils 53 41 - 77 % [facility] Lymphocytes 23 (L) 24 - 44 % [facility] Monocytes 13 (H) 4 - 12 % MAIN LAB Eosinophils 9 (H) 0 - 5 % MAIN LAB Basophils 2 0 - 2 % MAIN LAB Absolute 3.61 1.8 - 7.0 K/UL MAIN LAB Neutrophil Count Absolute Lymph 1.50 1.0 - 4.8 K/UL MAIN LAB Count Absolute 0.86 (H) 0 - 0.80 K/UL MAIN LAB Monocyte Count Absolute 0.58 (H) 0 - 0.45 K/UL MAIN LAB Eosinophil Count Absolute 0.11 0 - 0.20 K/UL MAIN LAB Basophil Count Specimen Performing Organization Address [facility] Ph one Number MAIN LAB [address] [place] [address] * TROPONIN-I (04/07/2020 6:30 AM CDT) Troponin-I 0.04 0.0 - 0.05 NG/ML MAIN LAB Specimen Blood Performing Organization Address [facility] one Number MA[facility] LAB [address] [place] [address] * CT HEAD WO CONTRAST (04/07/2020 6:02 AM CDT) Specimen Impressions Performed At IMPRESSION: RAD RESULTS 1. No acute intracranial hemorrhage [...] Ph one Number [facility] RAD RESULTS * TROPONIN-I (04/07/2020 4:15 AM CDT) Troponin-I 0.05 0.0 - 0.05 NG/ML [facility] Specimen Blood Performing Organization Address [facility] one Number [facility] [address] [place] [address] * FREE T4-FREE THYROXINE (04/07/2020 2:45 AM CDT) T4-Free 1.5 0.6 - 1.6 NG/DL [facility] Specimen Performing Organization Address [facility] one Number [facility] [address] [place] [address] * COMPREHENSIVE METABOLIC PANEL (04/07/2020 2:45 AM CDT) Sodium 142 137 - 147 MMOL/L [facility] Potassium 4.0 3.5 - 5.1 MMOL/L [facility] Chloride 109 98 - 110 MMOL/L [facility] Glucose 92 70 - 100 MG/DL [facility] Blood Urea 11 7 - 25 MG/DL [facility] Nitrogen Creatinine 1.19 0.4 - 1.24 MG/DL [facility] Calcium 9.1 8.5 - 10.6 MG/DL [facility] Total Protein 5.9 (L) 6.0 - 8.0 G/DL [facility] Total Bilirubin 0.4 0.3 - 1.2 MG/DL [facility] Albumin 3.5 3.5 - 5.0 G/DL [facility] Alk Phosphatase 93 25 - 110 U/L [facility] AST (SGOT) 15 7 - 40 U/L [facility] CO2 25 21 - 30 MMOL/L [facility] ALT (SGPT) 19 7 - 56 U/L [facility] Anion Gap 8 3 - 12 [facility] eGFR Non >60 >60 mL/min [facility] Comment: [place] The eGFR is not validated f or use in drug dosing adjustments. Continue to use estimated creatinine clearance per dosing reference text. Please contact the Clinical Pharmacist for questions. eGFR >60 >60 mL/min [facility] [place] Comment: The eGFR is not validated for use in drug dosing adjustments. Continue to use estimated creatinine clearance per dosing reference text. Please contact the Clinical Pharmacist for questions. Specimen Performing Organization Address [facility] Ph one Number MAIN LAB [address] [place] [address] * CBC AND DIFF (04/07/2020 2:45 AM CDT) White Blood 6.8 4.5 - 11.0 K/UL MAIN LAB Cells RBC 4.03 (L) 4.4 - 5.5 M/UL [facility] Hemoglobin 11.3 (L) 13.5 - 16.5 GM/DL [facility] Hematocrit 33.5 (L) 40 - 50 % [facility] MCV 83.2 80 - 100 FL MAIN LAB MCH 28.1 26 - 34 PG [facility] MCHC 33.7 32.0 - 36.0 G/DL [facility] RDW 15.4 (H) 11 - 15 % [facility] Platelet Count 538 (H) 150 - 400 K/UL [facility] MPV 8.5 7 - 11 FL [facility] Neutrophils 58 41 - 77 % [facility] Lymphocytes 22 (L) 24 - 44 % [facility] Monocytes 14 (H) 4 - 12 % MAIN LAB Eosinophils 5 0 - 5 % [facility] Basophils 1 0 - 2 % [facility] Absolute 3.85 1.8 - 7.0 K/UL [facility] Neutrophil Count Absolute Lymph 1.51 1.0 - 4.8 K/UL [facility] Count Absolute 0.98 (H) 0 - 0.80 K/UL [facility] Monocyte Count Absolute 0.35 0 - 0.45 K/UL [facility] Eosinophil Count Absolute 0.09 0 - 0.20 K/UL [facility] Basophil Count Specimen Performing Organization Address [facility] Ph one Number [facility] [address] [place] [address] * COVID-19 (SARS-COV-2) PCR (04/07/2020 2:45 AM CDT) COVID-19 NASOPHARYNGEAL SWAB [facility] (SARS-CoV-2) PCR Source COVID-19 NOT DETECTED DN-NOT DETECTED [facility] (SARS-CoV-2) Comment: PCR This assay is [...] performance characteristics have been verified by the [facility]. Fact sheet for providers: https://www.fda.gov/media/3884 85/download Fact sheet for patients: https://www.fda.gov/media/4288 87/download Specimen Nasopharyngeal Swab Performing Organization Address [facility] one Number MAIN LAB [address] [place] [address] * TSH WITH FREE T4 REFLEX (04/07/2020 2:45 AM CDT) TSH 8.22 (H) 0.35 - 5.00 MCU/ML [facility] Specimen Blood Performing Organization Address [facility] one Number MAIN LAB [address] [place] [address] * TROPONIN-I (04/07/2020 2:45 AM CDT) Troponin-I 0.05 0.0 - 0.05 NG/ML [facility] Specimen Blood Performing Organization Address [facility] one Number MAIN LAB [address] [place] [address] * BNP (B-TYPE NATRIURETIC PEPTI) (04/07/2020 2:45 AM CDT) B Type 331.0 (H) 0 - 100 PG/ML MAIN LAB Natriuretic Peptide Specimen Blood Performing Organization Address [facility] one Number MAIN LAB [address] [place] [address] * LIPID PROFILE (04/07/2020 2:45 AM CDT) Cholesterol 114 <200 MG/DL [facility] [...] 130 mg/dL. Specimen Blood Performing Organization Address [facility] one Number MAIN LAB [address] [place] [address] * HEMOGLOBIN A1C (04/07/2020 2:45 AM CDT) Hemoglobin A1C 5.6 4.0 - 6.0 % MAIN LAB Comment: The ADA recommends that most patients with type 1 and type 2 diabetes maintain an A1c level <7%. Specimen Blood Performing Organization Address [facility] one Number MAIN LAB [address] [place] [address] * PHOSPHORUS (04/07/2020 2:45 AM CDT) Phosphorus 3.4 2.0 - 4.5 MG/DL MAIN LAB Specimen Blood Performing Organization [facility] one Number MAIN LAB [address] [place] [address] * MAGNESIUM (04/07/2020 2:45 AM CDT) Magnesium 1.8 1.6 - 2.6 mg/dL MAIN LAB Specimen Blood Performing [facility] one Number MAIN LAB [address] [place] [address] * PROTIME INR (PT) (04/07/2020 2:45 AM CDT) INR 1.4 (H) 0.8 - 1.2 MAIN LAB Specimen Blood Performing Organization [facility] one Number MAIN LAB [address] [place] [address] * TELEMETRY STRIPS-SCAN (04/07/2020 12:00 AM CDT) [...] CHEST EXTERNAL IMAGING (04/06/2020 12:00 AM CDT) Specimen Narrative Performed At This order has been auto finalized and does not contain a result. documented in this encounter Visit Diagnoses Diagnosis Syncope due to orthostatic hypotension Syncope and collapse Fall, initial encounter Syncope, unspecified syncope type Essential hypertension Unspecified essential hypertension Chronic back pain Backache, unspecified History of pulmonary embolus (PE) Personal history of pulmonary embolism Hyperlipidemia Other and unspecified hyperlipidemia Hypothyroid Unspecified hypothyroidism Migraine Migraine, unspecified, without mention of intractable migraine without mention of status migrainosus Paroxysmal A-fib (HCC) Atrial fibrillation S/P ablation of atrial fibrillation Other postprocedural status Contamination of blood culture documented in this encounter Administered Medications Action Date Dose Rate Site Medication Order MAR Action 04/24/2020 9:11 AM CDT 650 mg acetaminophen (TYLENOL) tablet 650 mg Given 650 mg, Oral, EVERY 6 HOURS PRN, Starting Wed04/09/20 at 1028, Until Jenny 04/25/20 at 1802, Headache, TOTAL ACETAMINOPHEN DOSE NOT TO EXCEED 4GM DAILY, 650 mg Given 04/22/2020 6:28 PM CDT 650 mg Given 04/22/2020 8:10 AM CDT 04/24/2020 9:45 PM CDT 0.5 mg ALPRAZolam (XANAX) tablet 0.5 mg Given 0.5 mg, Oral, THREE TIMES DAILY PRN, Starting Wed04/09/20 at 1029, Until Jenny 04/25/20 at 1802, Anxiety PO 0.5 mg Given 04/24/2020 2:26 PM CDT 0.5 mg Given 04/24/2020 8:12 AM CDT 04/08/2020 1:47 PM CDT 1 mg ALPRAZolam (XANAX) tablet 1 mg Given 1 mg, Oral, THREE TIMES DAILY PRN, Starting Wed04/07/20 at 0641, Until Wed04/09/20 at 1029, Anxiety PO 1 mg Given 04/07/2020 8:38 PM CDT 1 mg Given 04/07/2020 3:05 PM CDT 04/17/2020 8:33 PM CDT 200 mg amiodarone (CORDARONE) tablet 200 mg Given 200 mg, Oral, THREE TIMES DAILY, First dose on Wed04/07/20 at 0900, Until Discontinued 200 mg Given 04/17/2020 3:06 PM CDT 200 mg Given 04/17/2020 8:07 AM CDT 04/25/2020 8:40 AM CDT 400 mg amiodarone (CORDARONE) tablet 400 mg Given 400 mg, Oral, DAILY, First dose (after last modification) on Wed04/18/20 at 0900, Until Discontinued 400 mg Given 04/24/2020 9:10 AM CDT 400 mg Given 04/23/2020 8:36 AM CDT 04/25/2020 8:40 AM CDT 5 mg apixaban (ELIQUIS) tablet 5 mg Given 5 mg, Oral, TWICE DAILY, First dose on Wed04/07/20 at 0900, Until Discontinued , May crush 5 mg or 2.5 mg tablets and suspend in 60 mL of D5W followed by immediate delivery through a nasogastri c tube. No information regarding administration of suspension by mouth i s available. NOTE: This is a HIGH ALERT Medication., 5 mg Given 04/24/2020 9:08 PM CDT 5 mg Given 04/24/2020 9:10 AM CDT aspirin/acetaminophen/caffeine (EXCEDRI N MIGRAINE) 250/250/65 mg tablet 1 tablet 1 tablet, Oral, EVERY 6 HOURS PRN, Starting Wed04/09/20 at 1028, Until Wed04/25/20 at 1802, Headache, Note: Max 8 tabs/day, 04/25/2020 8:40 AM CDT 40 mg atorvastatin (LIPITOR) tablet 40 mg Given 40 mg, Oral, DAILY, First dose on 04/07/20 at 0900, Until Discontinued 40 mg Given 04/24/2020 9:10 AM CDT 40 mg Given 04/23/2020 8:35 AM CDT 04/24/2020 9:31 AM CDT 2 g diclofenac (VOLTAREN) 1 % topical gel 2 Given by g Patient/Fami 2 g, Topical, FOUR TIMES DAILY, First ly dose on Wed04/14/20 at 1700, Until Discontinued, Apply to bilateral shoulder for pain. Measure dose of gel with dosing card (provided)., 2 g Given 04/22/2020 4:45 PM CDT 2 g Given 04/22/2020 8:15 AM CDT 04/25/2020 8:40 AM CDT 120 mg dilTIAZem CD (cardIZEM CD) capsule 120 Given mg 120 mg, Oral, DAILY, First dose on 04/08/20 at 1800, Until Discontinued, DO NOT CRUSH. Hold if SBP<90 or HR<55, 120 mg Given 04/24/2020 9:11 AM CDT 120 mg Given 04/23/2020 8:36 AM CDT 04/09/2020 8:29 AM CDT 1,000 mL 150 mL/hr lactated ringers infusion Given - New 1,000 mL, 1,000 mL, Intravenous, at 150 Bag mL/hr, ONCE, 1 dose, 04/09/20 at 080 0 04/25/2020 6:25 AM CDT 50 mcg levothyroxine (SYNTHROID) tablet 50 mcg Given 50 mcg, Oral, DAILY 30MIN BEFORE BREAKFAST, First dose on Wed04/07/20 at 0630, Until Discontinued, Give 1 hour before a meal. If patient is receiving tube feedings, hold tube feed 1hr befor e and 1hr after dose., 50 mcg Given 04/24/2020 6:06 AM CDT 50 mcg Given 04/23/2020 4:20 AM CDT 04/07/2020 8:10 AM CDT 10 mg lisinopriL (ZESTRIL) tablet 10 mg Given 10 mg, Oral, DAILY, First dose on 04/07/20 at 0900, Until Discontinued 04/23/2020 9:19 PM CDT 5 mg melatonin tablet 5 mg Given 5 mg, Oral, AT BEDTIME DAILY, First dos e on Wed04/07/20 at 0230, Until Discontinued 5 mg Given 04/17/2020 8:33 PM CDT 5 mg Given 04/16/2020 8:06 PM CDT 04/16/2020 12:55 AM CDT 4 mg ondansetron (ZOFRAN) tablet 4 mg Given 4 mg, Oral, ONCE, 1 dose, Wed04/16/20 a t 0130 04/25/2020 8:40 AM CDT 5 mg oxyCODONE (ROXICODONE) tablet 5 mg Given 5 mg, Oral, EVERY 4 HOURS PRN, Startin g Wed04/09/20 at 1110, Until Wed04/25/20 a t 1802, Pain PO 5 mg Given 04/24/2020 12:17 PM CDT 5 mg Given 04/24/2020 6:06 AM CDT 04/09/2020 8:28 AM CDT 2 tablets oxyCODONE/acetaminophen (PERCOCET) 5/325 Given mg tablet 1-2 tablet 1-2 tablet, Oral, EVERY 6 HOURS PRN, Starting Wed04/07/20 at 0159, Until Wed04/09/20 at 1028, Pain PO, TOTAL ACETAMINOPHEN DOSE NOT TO EXCEED 4GM DAILY, 1 tablet Given 04/08/2020 10:24 PM CDT 1 tablet Given 04/08/2020 8:34 PM CDT polyethylene glycol 3350 (MIRALAX) packet 17 g 17 g (1 packet), Oral, DAILY, First dos e on Wed04/12/20 at 1045, Until Discontinued, 8.5 GRAMS = 0.5 PACKET 17 GRAMS = 1 PACKET 34 GRAMS = 2 PACKETS, 04/09/2020 8:28 AM CDT 40 mEq potassium chloride SR (K-DUR) tablet 40 Given mEq 40 mEq, Oral, ONCE, 1 dose, Wed04/09/20 at 0800, Do NOT break or crush table t Give with meal or full glass of water, 04/07/2020 10:51 AM CDT 10 mg prochlorperazine (COMPAZINE) injection Given 10 mg 10 mg, Intravenous, EVERY 6 HOURS PRN, Starting Wed04/07/20 at 0444, Until Wed04/25/20 at 1802, Nausea/Vomiting Injectable, PROTECT FROM LIGHT -- May b e given undiluted, or each 5mg may be diluted with 9 mL of NS to facilitate titration., 04/12/2020 9:25 AM CDT 1 tablet senna (SENOKOT) tablet 1 tablet Given 1 tablet, Oral, TWICE DAILY, First dose on Wed04/07/20 at 0900, Until Discontinued, Hold for loose stools, 1 tablet Given 04/11/2020 9:08 PM CDT 1 tablet Given 04/11/2020 8:06 AM CDT 04/25/2020 8:46 AM CDT 2 tablets senna (SENOKOT) tablet 1-2 tablet Given 1-2 tablet, Oral, TWICE DAILY, First dose (after last modification) on Wed04/12/20 at 2100, Until Discontinued, Hold for loose stools, 2 tablets Given 04/24/2020 9:11 AM CDT 1 tablet Given 04/23/2020 8:36 AM CDT 04/08/2020 7:35 AM CDT 75 mL/hr sodium chloride 0.9 % infusion Given - New 1,000 mL, Intravenous, at 75 mL/hr, Bag CONTINUOUS, Starting Wed04/07/20 at 0215, Until Wed04/08/20 at 1353 75 mL/hr Given - New Bag 04/07/2020 6:29 PM CDT 75 mL/hr Given - New Bag 04/07/2020 4:20 AM CDT 04/23/2020 9:19 PM CDT 25 mg traZODone (DESYREL) tablet 25 mg Given 25 mg, Oral, AT BEDTIME DAILY, First dose on Wed04/09/20 at 2100, Until Discontinued 25 mg Given 04/21/2020 8:21 PM CDT 25 mg Given 04/18/2020 9:28 PM CDT 04/08/2020 11:13 PM CDT 1,250 mg 183 mL/hr vancomycin (VANCOCIN) 1,250 mg in sodium Given - New chloride 0.9% (NS) IVPB Bag 1,250 mg, Intravenous, 275 mL, Administer over 90 Minutes, EVERY 12 HOURS, First dose on Wed04/08/20 at 2300, Until Discontinued, Note Pharmacokinetic Monitoring: Please record infusion start time (Action= Given) and stop time (Action= Completed ) of dose when blood levels are drawn., documented in this encounter
--- OUTSIDE RECORDS SUMMARY | 2020-05-03 11:26 | XMS REPORT | Encounter Summary ---
Author Author [facility] Organization [facility] Address Unknown Phone Unavailable Care Team Providers Care [employer] Name Role Phone Sherman Spicer MD Unavailable Reyna Bond Unavailable Unavailable Indiana Bauer APRN PCP Unavailable Lenka Fuentes RN [phone] Unavailable Encounter Details Care Team Description Date Type Department 04/06/2020 [facility] [address] [address] Social History Date Tobacco Use Types Packs/Day Years Used Quit: 1979 Former Smoker Cigarettes Smokeless Tobacco: Never Used Drinks/Week oz/Week Comments Alcohol Use No Sex Assigned at Date Recorded Not on file Date Recorded COVID-19 Exposure Response 03/27/2020 6:26 [...] Miscellaneous Medical automatic 1 each 0 Supply [facility] blood pressure machine to monitor VS daily. 03/27/2020 oxyCODONE (ROXICODONE) 10 Take one 12 tablet 0 mg tablet tablet by mouth every 12 hours as needed 03/28/2020 traZODone (DESYREL) 50 mg Take one 30 tablet 0 tablet tablet by mouth at bedtime as needed. 03/27/2020 04/07/2020 acetaminophen (TYLENOL) Take two 0 325 mg tablet tablets by mouth every 4 hours as needed. This medication may be purchased from over the counter from your preferred pharmacy 04/11/2020 04/18/2020 amiodarone (CORDARONE) Take 1 tablet 312 tablet 0 200 mg tablet (200mg) by mouth three times daily until 04/17. Then take 2 tablets (400 mg) by mouth once daily until 07/18. Then take 1 tablet (200mg) by mouth once daily thereafter 04/05/2020 04/11/2020 amiodarone (CORDARONE) Take three 312 tablet 0 200 mg tablet tablets by mouth daily for 14 days, THEN one tablet twice daily for 90 days, THEN one tablet daily for 90 days. Take 600mg q day for 2 weeks,on 04/20/2020 then take 400mg q day for 3 months. On 07/21/2020, take 200mg q day. Take with food. 03/27/2020 04/11/2020 furosemide (LASIX) 20 mg Take one 60 tablet 1 tablet tablet by mouth twice daily. 03/01/2020 04/11/2020 lisinopriL (ZESTRIL) 10 Take one 90 tablet 3 mg tablet tablet by mouth daily. 03/27/2020 04/07/2020 melatonin 5 mg tab Take one 0 tablet by mouth at bedtime daily. 03/27/2020 04/07/2020 senna (SENOKOT) 8.6 mg Take one 0 tablet tablet by mouth twice daily. documented as of this [...] Associated Diag nosis GENERAL RAD CHEST Routine 04/06/2020 EXTERNAL IMAGING 12:00 AM CDT documented in this encounter Results * GENERAL RAD CHEST EXTERNAL IMAGING (04/06/2020 12:00 AM CDT) Specimen Narrative Performed At This order has been auto finalized and does not contain a result. documented in this encounter Visit Diagnoses Not on filedocumented in this encounter
--- OUTSIDE RECORDS SUMMARY | 2020-05-03 11:26 | XMS REPORT | Encounter Summary ---
Author Author [facility] Organization [facility] Address Unknown Phone Unavailable Care Team Providers Care Bell Spinner Name Role Phone Sherman Spicer MD Unavailable Reyna Bond Unavailable Unavailable Indiana Bauer APRN PCP Unavailable Lenka Fuentes RN [phone] Unavailable Reason for Visit * Reason Onset Date Comments Follow-up Phone Call 04/22/2020 Encounter Details Care Team Description Date Type Department Surya Greene RN Follow-up Phone Call 04/22/2020 Telephone Cardiology: [facility] [address] [place], [place] [id number] [place] [address] Social History Date Tobacco Use Types Packs/Day [...] encounter Miscellaneous Notes * Telephone Encounter - Surya Greene RN - 04/22/2020 9:45 AM CDT Left VM that I got his message and that inpatient team will be managing his care while he is in the hospital. Also apologized about the phone call but let him k now there was probably an appointment request ordered that prompted the phone ca ll. * Telephone Encounter - Surya Greene RN - 04/22/2020 9:44 AM CDT ----- Message from Mercy Carbajal LPN sent at 04/22/2020 8:05 AM CDT ----- Regarding: PATRICK NEGRETE from patient on triage line Wednesday at 2:49pm. Said what is a matter with our office, are we nuts. He is still in the hospital and we are calling him to make f/u appointment. I have been begging for MPE or someone in his office to come and see me and you will not. I will only have this phone #[phone] for 1 more week. I will not be driving back for appointment 1-2 weeks after I'm out of the hospit al. documented in this encounter Plan of Treatment [...]
--- OUTSIDE RECORDS SUMMARY | 2020-05-03 11:26 | XMS REPORT | Encounter Summary ---
Author Author [facility] Organization [facility] Address Unknown Phone Unavailable Care Team Providers Care Sales And Service Technician Name Role Phone Sherman Spicer MD Unavailable StaReyna hudson Unavailable Unavailable Indiana Bauer APRN PCP Unavailable Lenka Fuentes RN [phone] Unavailable Encounter Details Care Team Description Date Type Department 04/06/2020 Travel Social History Date Tobacco Use Types [...]
--- OUTSIDE RECORDS SUMMARY | 2020-05-03 11:26 | XMS REPORT | Encounter Summary ---
Author Author [facility] Organization [facility] Address Unknown Phone Unavailable Care Team Providers Care Filling Layer Up Name Role Phone Sherman Spicer MD Unavailable StaReyna hudson Unavailable Unavailable Indiana Bauer APRN PCP Unavailable Lenka Fuentes RN [phone] Unavailable Reason for Visit * Reason Onset Date Comments Medication Question 04/05/2020 amiodarone Encounter Details Care Team Description Date Type Department Beny Paredes RN Medication Question (amiodarone) 04/05/2020 Telephone Cardiology: [facility], [address] [facility] [address] [place] [address] Social History Date Tobacco Use Types Packs/Day Years Used Quit: 1979 Former Smoker Cigarettes Smokeless Tobacco: Never Used Drinks/Week oz/Week Comments Alcohol Use No Sex Assigned at Date Recorded Not on file Date Recorded COVID-19 Exposure Response 03/27/2020 6:26 AM CDT In the last month, have you been in contact with [facility] to assess someone who was confirmed or [...] take amiodarone 400qd & to f/u w/ bar attendant for dose adjustments. I instructed him to [...] that he is on. Call him at #[phone]. documented in this encounter Plan of Treatment [...]
--- OUTSIDE RECORDS SUMMARY | 2020-05-03 11:26 | XMS REPORT | Encounter Summary ---
Author Author [facility] Organization [facility] Address Unknown Phone Unavailable Care Team Providers Care Registered Nurse Name Role Phone Sherman Spicer MD Unavailable Reyna Bond Unavailable Unavailable Indiana Bauer APRN PCP Unavailable Lenka Fuentes RN [phone] Unavailable Reason for Visit * Reason Onset Date Comments Appointment 04/01/2020 Encounter Details Care Team Description Date Type Department Patrick Constantino, RN Appointment 04/01/2020 Telephone Cardiology: [facility] [address] [place], [place] [id number] Social History Date Tobacco Use Types Packs/Day [...] Telephone Encounter - Patrick Constantino, RN - 04/01/2020 1:12 PM CDT Pt called scheduling line and was transferred to Clinic. Pt reports he is cu rrently admitted to [facility] in [place], [place] for CP and SOA. Pt reports he was admitted on Wednesday03/29/2020. Pt states he wants to be transferred to . Pt informed that this could not happen d/t [facility] but pt could schedule a OV with MPE when DC from [facility]. This RN spoke to pt for approximately 25 minutes regarding this and his current medical condition. Pt explained that the elsi neff MD had made changes to his medications and pt continues to complain of feeli brittney lightheaded and CP. Again, pt informed that this RN could not transfer care from [facility] but pt offered OV with MPE on [...]
--- OUTSIDE RECORDS SUMMARY | 2020-05-03 11:26 | XMS REPORT | Encounter Summary ---
Author Author [facility] Organization [facility] Address Unknown Phone Unavailable Care Team Providers Care Bicycle Assembler Name Role Phone Sherman Spicer MD Unavailable Reyna Bond Unavailable Unavailable Indiana Bauer APRN PCP Unavailable Lenka Fuentes RN [phone] Unavailable Encounter Details Care Team Description Date Type Department 04/06/2020 [facility] [address] [address] Social History Date Tobacco Use [...] Name Priority Date/Time Associated Diag nosis CT HEAD EXTERNAL IMAGING Routine 04/06/2020 12:05 AM CDT documented in this encounter Results * CT HEAD EXTERNAL IMAGING (04/06/2020 12:05 AM CDT) Specimen Narrative Performed At This order has been auto finalized and does not contain a result. documented in this encounter Visit Diagnoses Not on filedocumented in this encounter
--- OUTSIDE RECORDS SUMMARY | 2020-05-03 11:26 | XMS REPORT | Encounter Summary ---
Author Author [facility] Organization [facility] Address Unknown Phone Unavailable Care Team Providers Care Pattern Finisher Name Role Phone Sherman Spicer MD Unavailable Reyna Bond Unavailable Unavailable Indiana Bauer APRN PCP Unavailable Lenka Fuentes RN [phone] Unavailable Reason for Visit * Reason Onset Date Comments Medical Question 04/17/2020 Encounter Details Care Team Description Date Type Department Patrick Constantino RN Medical Question 04/17/2020 Telephone Cardiology: [facility], [address] [facility] [place] [address] Social History Date Tobacco Use Types Packs/Day [...] Telephone Encounter - Patrick Constantino RN - 04/17/2020 11:41 AM CDT RC to pt. LVM for pt to call back when he is DC from the hospital. * Telephone Encounter - Patrick Constantino RN - 04/17/2020 11:40 AM CDT ----- Message from Deana Vargas sent at 04/17/2020 9:48 AM CDT ----- Regarding: MPE-Low BP Patient is currently admitted in room 804. He is having low BP and feels like he is going to faint when he stands. He would like to speak with nurse. documented in this encounter Plan of Treatment [...]
--- OUTSIDE RECORDS SUMMARY | 2020-05-03 11:26 | XMS REPORT | Encounter Summary ---
Author Author [facility] Organization [facility] Address Unknown Phone Unavailable Care Team Providers Care Exhaust And Muffler Repairer Name Role Phone Sherman Spicer MD Unavailable StaReyna hudson Unavailable Unavailable Indiana Bauer APRN PCP Unavailable Lenka Fuentes RN [phone] Unavailable Encounter Details Care Team Description Date Type Department Ya Howard RN 04/09/2020 Telephone Cardiology: [facility] [address] [place] [address] Social History Date Tobacco Use Types [...] Telephone Encounter - Ya Howard RN - 04/09/2020 9:17 AM CDT David is currently admitted to [facility]. Attempted to return call however, ca ll went straight to voice mail. * Telephone Encounter - Ya Howard RN - 04/09/2020 9:17 AM CDT ----- Message from Deana Vargas sent at 04/09/2020 8:15 AM CDT ----- Regarding: MPE-Admitted [phone], Is currently admitted on 7th floor. He would like to speak to nurs e about seeing a doctor SONAM. documented in this encounter Plan of Treatment Not on filedocumented as of this encounter Goals Goal Patient Associated Recent Progress Patient-Stat Aut hor Goal Type Problems ed? GOAL General No Tana Saldivar, RN Note: Get stronger Take Medication at Right Time, Medication No Lind, Right Day, Right Order, With Adherence Daniol Moseley N or Without Food Correctly documented as of this encounter Visit Diagnoses Not on filedocumented in this encounter
--- OUTSIDE RECORDS SUMMARY | 2020-05-03 11:26 | XMS REPORT | Encounter Summary ---
Author Author [facility] Organization [facility] Address Unknown Phone Unavailable Care Team Providers Care Screen Printing Press Operator Name Role Phone Sherman Spicer MD Unavailable Reyna Bond Unavailable Unavailable Indiana Bauer APRN PCP Unavailable Lenka Fuentes RN [phone] Unavailable Reason for Visit * Reason Onset Date Comments Follow-up Phone Call 04/15/2020 returned call - M ark inpatient at [facility] Encounter Details Care Team Description Date Type Department Ya Howard RN Follow-up Phone Call (returned call - Ma rk inpatient at [facility]) 04/15/2020 Telephone Cardiology: [place] [address] [facility] [place] [address] Social History Date Tobacco Use Types [...] Telephone Encounter - Ya Howard RN - 04/15/2020 9:56 AM CDT David has called and left messages x 2 over the weekend with concerns regarding m anagement of his BP attempted to return call however, no answer left message to let him know I called and Dr Rodriguez has been following his hospti alization. * Telephone Encounter - Ya Howard RN - 04/15/2020 9:56 AM CDT ----- Message from Mercy Carbajal LPN sent at 04/15/2020 8:37 AM CDT ----- Regarding: MPE- hospital request VM from patient on triage line Wednesday at 8:02pm and then at 6:07am today. He would like someone to come up to see him to discuss his b/p medications to ma ke sure he is taking the right ones. He is at #[phone]. documented in this encounter Plan of Treatment [...]
--- OUTSIDE RECORDS SUMMARY | 2020-05-03 11:28 | XMS REPORT | Encounter Summary ---
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 [address] [place] [address] * BASIC METABOLIC PANEL (03/21/2020 5:15 PM CDT) Pathologist [facility] Sodium 144 137 - 147 MMOL/L K[facility] [...] >60 >60 mL/min [facility] Comment: [place] The eGFR is not validated f or use in drug dosing adjustments. Continue to use estimated creatinine clearance per dosing reference text. Please contact the Clinical Pharmacist for questions. eGFR >60 >60 mL/min [facility] [place] Comment: The eGFR is not validated for use in drug dosing adjustments. Continue to use estimated creatinine clearance per dosing reference text. Please contact the Clinical Pharmacist for questions. Specimen Blood Performing Organization Address [facility] one Number MAIN LAB [address] [place] [address] * TROPONIN-I (03/21/2020 1:55 PM CDT) Troponin-I 0.67 (H) 0.0 - 0.05 NG/ML [facility] Specimen Blood Performing Organization Address [facility] Ph one Number MAIN LAB [address] [place] [phone] * PROTEIN/CR RATIO,UR RAN (03/21/2020 1:55 PM CDT) Protein, Random 5 MG/DL [facility] Creatinine, 9 MG/DL [facility] Random Protein/CR 0.6 [facility] ratio Specimen Urine - Urine Performing Organization Address [facility] Ph one Number MAIN LAB [address] [place] [address] * TROPONIN-I (03/21/2020 3:15 AM CDT) Troponin-I 0.72 (H) 0.0 - 0.05 NG/ML [facility] Specimen Performing Organization Address [facility] Ph one Number MAIN LAB [address] [place] [phone] * MAGNESIUM (03/21/2020 3:15 AM CDT) Magnesium 2.3 1.6 - 2.6 mg/dL [facility] Specimen Blood Performing Organization Address [facility] one Number MAIN LAB [address] [place] [phone] * COMPREHENSIVE METABOLIC PANEL (03/21/2020 3:15 AM [...] >60 >60 mL/min [facility] Comment: [place] The eGFR is not validated f or use in drug dosing adjustments. Continue to use estimated creatinine clearance per dosing reference text. Please contact the Clinical Pharmacist for questions. eGFR >60 >60 mL/min [facility] [place] Comment: The eGFR is not validated for use in drug dosing adjustments. Continue to use estimated creatinine clearance per dosing reference text. Please contact the Clinical Pharmacist for questions. Specimen Blood Performing Organization Address City/State/Zipcode Ph one Number [facility] [address] [place] [address] * CBC AND DIFF (03/21/2020 3:15 AM [...] Count Absolute 0.03 0 - 0.20 [facility] MAIN LAB Basophil Count Specimen Blood Performing Organization Address [facility] one Number MAIN LAB [address] [place] [address] * TROPONIN-I (03/20/2020 7:33 PM CDT) Troponin-I 0.32 (H) 0.0 - 0.05 NG/ML [facility] Specimen Blood Performing Organization Address [facility] one Number MAIN LAB [address] [place] [address] * TROPONIN-I (03/20/2020 2:10 PM CDT) Troponin-I 0.22 (H) 0.0 - 0.05 NG/ML MAIN LAB Specimen Performing Organization Address [facility] one Number MAIN LAB [address] [place] [address] * MAGNESIUM (03/20/2020 2:10 PM CDT) Magnesium 2.5 1.6 - 2.6 mg/dL MAIN LAB Specimen Blood Performing Organization Address [facility] one Number MAIN LAB [address] [place] [address] * BASIC METABOLIC PANEL (03/20/2020 2:10 PM [...] Urea 46 (H) 7 - 25 MG/DL MAIN LAB Nitrogen Creatinine 1.25 (H) 0.4 - 1.24 MG/DL MAIN LAB Calcium 8.3 (L) 8.5 - 10.6 MG/DL [facility] eGFR Non 59 (L) >60 mL/min [facility] Comment: [place] The eGFR is not validated f or use in drug dosing adjustments. Continue to use estimated creatinine clearance per dosing reference text. Please contact the Clinical Pharmacist for questions. eGFR >60 >60 mL/min [facility] [place] Comment: The eGFR is not validated for use in drug dosing adjustments. Continue to use estimated creatinine clearance per dosing reference text. Please contact the Clinical Pharmacist for questions. Specimen Blood Performing Organization Address City/[facility] Ph one Number MAIN LAB [address] [place] [address] * BLOOD GASES, ARTERIAL (03/20/2020 8:36 AM [...] Blood, arterial - Blood Performing Organization Address [facility] Ph one Number MAIN LAB [address] [place] [address] * CHEST SINGLE VIEW (03/20/2020 8:29 AM [...] on 03/20/2020 9:16 AM. Performing Organization Address City/State/[place] Ph one Number [facility] RAD RESULTS * MAGNESIUM (03/20/2020 4:45 AM CDT) Magnesium 2.4 1.6 - 2.6 mg/dL [facility] Specimen Blood Performing Organization Address City/[facility] Ph one Number [facility] [address] [place] [address] * COMPREHENSIVE METABOLIC PANEL (03/20/2020 4:45 AM [...] >60 >60 mL/min [facility] Comment: [place] The eGFR is not validated f or use in drug dosing adjustments. Continue to use estimated creatinine clearance per dosing reference text. Please contact the Clinical Pharmacist for questions. eGFR >60 >60 mL/min [facility] [place] Comment: The eGFR is not validated for use in drug dosing adjustments. Continue to use estimated creatinine clearance per dosing reference text. Please contact the Clinical Pharmacist for questions. Specimen Blood Performing Organization Address City/[facility] Ph one Number [place] MAIN LAB [address] [place] [address] * CBC AND DIFF (03/20/2020 4:45 AM [...] Basophil Count Specimen Blood Performing Organization Address City/[facility] one Number [facility] [address] [place] [address] * MAGNESIUM (03/19/2020 3:58 AM CDT) Magnesium 2.3 1.6 - 2.6 mg/dL [facility] Specimen Blood Performing Organization Address City/[facility] one Number [facility] [address] [place] [address] * COMPREHENSIVE METABOLIC PANEL (03/19/2020 3:58 AM [...] >60 >60 mL/min [facility] Comment: [place] The eGFR is not validated f or use in drug dosing adjustments. Continue to use estimated creatinine clearance per dosing reference text. Please contact the Clinical Pharmacist for questions. eGFR >60 >60 mL/min [facility] [place] Comment: The eGFR is not validated for use in drug dosing adjustments. Continue to use estimated creatinine clearance per dosing reference text. Please contact the Clinical Pharmacist for questions. Specimen Blood Performing Organization Address City/State/Zipcode Ph one Number [facility] [address] [place] [address] * CBC AND DIFF (03/19/2020 3:58 AM [...] Count Manual Specimen Blood Performing Organization Address [facility] Ph one Number MAIN LAB [address] [place] [address] * THYROID STIMULATING HORMONE-TSH (03/19/2020 3:58 AM CDT) TSH 7.65 (H) 0.35 - 5.00 MCU/ML MAIN LAB Specimen Blood Performing Organization Address [facility] Ph one Number MAIN LAB [address] [place] [address] * TRIGLYCERIDE (03/19/2020 3:58 AM CDT) Pathologist [facility] Triglycerides 120 <150 MG/DL MAIN LAB Specimen Blood Performing Organization Address [facility] one Number MAIN LAB [address] [place] [address] * BLOOD GASES, ARTERIAL (03/19/2020 3:58 AM [...] Blood, arterial - Blood Performing Organization Address [facility] Ph one Number MAIN LAB [address] [place] [address] * CBC (03/18/2020 12:10 PM CDT) White [...] MAIN LAB Specimen Blood Performing Organization Address City/[facility] Ph one Number MAIN LAB [address] [place] [address] * IONIZED CALCIUM,BG (03/18/2020 9:45 AM CDT) Ionized Calcium 1.20 1.0 - 1.3 MMOL/L MAIN LAB Specimen Blood Performing Organization Address City/[facility] Ph one Number MAIN LAB [address] [place] [address] * PHOSPHORUS (03/18/2020 9:45 AM CDT) Phosphorus 4.0 2.0 - 4.5 MG/DL MAIN LAB Specimen Blood Performing Organization Address [facility] Ph one Number MAIN LAB [address] [place] [address] * MAGNESIUM (03/18/2020 9:45 AM CDT) Magnesium 2.4 1.6 - 2.6 mg/dL MAIN LAB Specimen Blood Performing Organization Address [facility] Ph one Number MAIN LAB [address] [place] [address] * BASIC METABOLIC PANEL (03/18/2020 9:45 AM [...] (L) >60 mL/min [facility] Comment: [place] The eGFR is not validated f or use in drug dosing adjustments. Continue to use estimated creatinine clearance per dosing reference text. Please contact the Clinical Pharmacist for questions. eGFR >60 >60 mL/min [facility] [place] Comment: The eGFR is not validated for use in drug dosing adjustments. Continue to use estimated creatinine clearance per dosing reference text. Please contact the Clinical Pharmacist for questions. Specimen Blood Performing Organization Address City/State/Zipcode Ph one Number MAIN LAB [address] [place] [address] * 2D + DOPPLER ECHO (03/18/2020 7:27 [...] OTHER OUTSIDE Mass Index LAB Cardiology Siemens [id number] OTHER OUTSIDE Ultrasound LAB Machine Referring [place] Bauer OTHER OUTSIDE Provider LAB CV ECHO PV Floor RN OTHER OUTSIDE CLAY PRESS OPERATOR LAB ECHO EF 60 % OTHER OUTSIDE [...] pericardial effusion is seen. Performing Organization Address City/[facility] Ph one Number OTHER OUTSIDE LAB * [...] Blood, arterial - Blood Performing Organization Address City/[facility] Ph one Number [facility] [address] [place] [address] * CHEST SINGLE VIEW (03/18/2020 5:23 AM [...] MAIN LAB Specimen Blood Performing Organization Address City/[facility] Ph one Number [facility] [address] [place] [address] * COMPREHENSIVE METABOLIC PANEL (03/18/2020 4:30 AM [...] >60 >60 mL/min [facility] Comment: [place] The eGFR is not validated f or use in drug dosing adjustments. Continue to use estimated creatinine clearance per dosing reference text. Please contact the Clinical Pharmacist for questions. eGFR >60 >60 mL/min [facility] [place] Comment: The eGFR is not validated for use in drug dosing adjustments. Continue to use estimated creatinine clearance per dosing reference text. Please contact the Clinical Pharmacist for questions. Specimen Blood Performing Organization Address [facility] Ph one Number [facility] [address] [place] [address] * CBC AND DIFF (03/18/2020 4:30 AM [...] Ph one Number [facility] [address] [place] [address] * BASIC METABOLIC PANEL (03/18/2020 1:38 AM [...] >60 >60 mL/min [facility] Comment: [place] The eGFR is not validated f or use in drug dosing adjustments. Continue to use estimated creatinine clearance per dosing reference text. Please contact the Clinical Pharmacist for questions. eGFR >60 >60 mL/min [facility] [place] Comment: The eGFR is not validated for use in drug dosing adjustments. Continue to use estimated creatinine clearance per dosing reference text. Please contact the Clinical Pharmacist for questions. Specimen Blood Performing Organization Address [facility] one Number MAIN LAB [address] [place] [address] * BNP (B-TYPE NATRIURETIC PEPTI) (03/18/2020 1:38 AM CDT) B Type 548.0 (H) 0 - 100 PG/ML MAIN LAB Natriuretic Peptide Specimen Blood Performing Organization Address [facility] Ph one Number MAIN LAB [address] [place] [address] * MAGNESIUM (03/18/2020 1:38 AM CDT) Magnesium 2.5 1.6 - 2.6 mg/dL MAIN LAB Specimen Blood Performing Organization Address [facility] Ph one Number MAIN LAB [address] [place] [address] * CULTURE-BLOOD W/SENSITIVITY (03/17/2020 10:00 PM CDT) Battery Name BLOOD CULTURE MAIN LAB Specimen BLOOD MAIN LAB Description LEFT RADIAL Special NONE MAIN LAB Requests Culture NO GROWTH 5 DAYS [facility]IN [facility] Report Status FINAL MAIN LAB 03/24/2020 Specimen Blood Performing Organization Address [facility] one Number MAIN LAB [address] [place] [address] * CULTURE-BLOOD W/SENSITIVITY (03/17/2020 10:00 PM CDT) Battery Name BLOOD CULTURE MAIN LAB Specimen BLOOD MAIN LAB Description RIGHT IJ WHT Special NONE [facility] MAIN [facility] Requests Culture NO GROWTH 5 DAYS [facility] Report Status FINAL [facility] 03/24/2020 Specimen Blood Performing Organization Address [facility] one Number MAIN LAB [address] [place] [address] * MAGNESIUM (03/17/2020 1:24 PM CDT) Magnesium 2.4 1.6 - 2.6 mg/dL [facility]IN [facility] Specimen Blood Performing Organization Address [facility] one Number [facility]IN [facility] [address] [place] [address] * BASIC METABOLIC PANEL (03/17/2020 1:24 PM [...] 55 (L) >60 mL/min MAIN LAB Comment: [place] The eGFR is not validated f or use in drug dosing adjustments. Continue to use estimated creatinine clearance per dosing reference text. Please contact the Clinical Pharmacist for questions. eGFR >60 >60 mL/min MAIN LAB [place] Comment: The eGFR is not validated for use in drug dosing adjustments. Continue to use estimated creatinine clearance per dosing reference text. Please contact the Clinical Pharmacist for questions. Specimen Blood Performing Organization Address [facility] one Number MAIN LAB [address] [place] [address] * BLOOD GASES, ARTERIAL (03/17/2020 8:50 AM [...] Blood, arterial - Blood Performing Organization Address [facility] one Number MAIN LAB [address] [place] [address] * PROCALCITONIN (03/17/2020 2:50 AM CDT) Procalcitonin 0.44 (H) <0.11 ng/mL MAIN LAB Specimen Performing Organization Address [facility] one Number MAIN LAB [address] [place] [address] * MAGNESIUM (03/17/2020 2:50 AM CDT) Magnesium 2.4 1.6 - 2.6 mg/dL MAIN LAB Specimen Blood Performing Organization Address [facility] one Number MAIN LAB [address] [place] [address] * COMPREHENSIVE METABOLIC PANEL (03/17/2020 2:50 AM [...] >60 >60 mL/min [facility] Comment: [place] The eGFR is not validated f or use in drug dosing adjustments. Continue to use estimated creatinine clearance per dosing reference text. Please contact the Clinical Pharmacist for questions. eGFR >60 >60 mL/min [facility] [place] Comment: The eGFR is not validated for use in drug dosing adjustments. Continue to use estimated creatinine clearance per dosing reference text. Please contact the Clinical Pharmacist for questions. Specimen Blood Performing Organization Address [facility] one Number [facility] [address] [place] [address] * CBC AND DIFF (03/17/2020 2:50 AM [...] Basophil Count Specimen Blood Performing Organization Address [facility] one Number [facility] [address] [place] [address] * CT ABD/PELV WO CONTRAST (03/16/2020 9:43 [...] Urinary bladder is mildly distended with a Sramiento catheter in place and a small amount [...] on 03/16/2020 9:43 PM. Performing Organization Address [facility] Ph one Number RAD RESULTS * VANCOMYCIN TIMED LEVEL (03/16/2020 8:07 PM CDT) Vancomycin 14.1 MCG/ML MAIN LAB Random Specimen Blood Performing Organization Address [facility] Ph one Number MAIN LAB [address] [place] [address] * LACTIC ACID (BG - RAPID LACTATE) (03/16/2020 8:07 PM CDT) Lactic Acid,BG 1.7 0.5 - 2.0 MMOL/L MAIN LAB Specimen Blood Performing Organization Address [facility] Ph one Number MAIN LAB [address] [place] [address] * URINALYSIS, MICROSCOPIC (03/16/2020 5:30 PM CDT) Pathologist [facility] WBCs,UA 20-50 0 - 2 /HPF [facility] MAIN [facility] RBCs,UA PACKED 0 - 3 /HPF [facility] MAIN [facility] Specimen Urine - Urine Performing Organization Address [facility] Ph one Number MAIN LAB [address] [place] [address] * URINALYSIS DIPSTICK (03/16/2020 5:30 PM CDT) Color,UA YELLOW MAIN LAB Turbidity,UA CLEAR CLEAR-CLEAR MAIN LAB Specific 1.029 1.003 - 1.035 MAIN LAB [place]-Urine pH,UA 6.0 5.0 - 8.0 MAIN LAB [...] Specimen Urine - Urine Performing Organization Address [facility] Ph one Number MAIN LAB [address] [place] [address] * TRIGLYCERIDE (03/16/2020 5:26 PM CDT) Triglycerides 145 <150 MG/DL MAIN LAB Specimen Performing Organization Address [facility] Ph one Number MAIN LAB [address] [place] [address] * LIPASE (03/16/2020 5:26 PM CDT) Lipase 4 (L) 11 - 82 U/L MAIN LAB Specimen Blood Performing Organization Address [facility] Ph one Number MAIN LAB [address] [place] [address] * BNP (B-TYPE NATRIURETIC PEPTI) (03/16/2020 5:26 PM CDT) B Type 645.0 (H) 0 - 100 PG/ML MAIN LAB Natriuretic Peptide Specimen Blood Performing Organization Address [facility] Ph one Number MAIN LAB [address] [place] [address] * PHOSPHORUS (03/16/2020 5:26 PM CDT) Phosphorus 3.1 2.0 - 4.5 MG/DL MAIN LAB Specimen Blood Performing Organization Address City/[facility]/Zipcode Ph one Number [facility] MAIN [facility] [address] [place] [address] * MAGNESIUM (03/16/2020 5:26 PM CDT) Pathologist [facility] Magnesium 2.3 1.6 - 2.6 mg/dL [facility] MAIN [facility] Specimen Blood Performing Organization Address [facility] one Number [facility] MAIN [facility] [address] [place] [address] * BLOOD GASES, ARTERIAL (03/16/2020 5:26 PM CDT) Pathologist [facility] pH-Arterial 7.40 7.35 - 7.45 [facility] MAIN [...] Blood, arterial - Blood Performing Organization Address [facility] one Number [facility] MAIN [facility] [address] [place] [address] * COMPREHENSIVE METABOLIC PANEL (03/16/2020 5:26 PM CDT) Pathologist [facility] Sodium 141 137 - 147 MMOL/L [...] Non >60 >60 mL/min MAIN LAB Comment: Kyr[place]z The eGFR is not validated f or use in drug dosing adjustments. Continue to use estimated creatinine clearance per dosing reference text. Please contact the Clinical Pharmacist for questions. eGFR >60 >60 mL/min [facility] MAIN LAB [place]z Comment: The eGFR is not validated for use in drug dosing adjustments. Continue to use estimated creatinine clearance per dosing reference text. Please contact the Clinical Pharmacist for questions. Specimen Blood Performing Organization Address City/[facility] Ph one Number MAIN LAB [address] [place] [address] * PTT (APTT) (03/16/2020 5:26 PM CDT) APTT 20.7 (L) 24.0 - 36.5 SEC MAIN LAB Specimen Blood Performing Organization Address [facility] one Number MAIN LAB [address] [place] [address] * PROTIME INR (PT) (03/16/2020 5:26 PM CDT) INR 1.3 (H) 0.8 - 1.2 MAIN LAB Specimen Blood Performing Organization Address [facility] one Number MAIN LAB [address] [place] [address] * CBC AND DIFF (03/16/2020 5:26 PM [...] Platelet Count 382 150 - 400 K/UL MAIN LAB MPV 8.3 7 - 11 FL MAIN LAB Neutrophils 93 (H) 41 - 77 % [facility] MAIN LAB Lymphocytes 1 (L) 24 - 44 % MAIN LAB Monocytes 5 4 - 12 % MAIN LAB Eosinophils 0 0 - 5 [...] Basophil Count Specimen Blood Performing Organization Address City/[facility] Ph [facility] Number MAIN LAB [address] [place] [address] * CULTURE-BLOOD W/SENSITIVITY (03/16/2020 5:24 PM CDT) Battery Name BLOOD CULTURE [facility] MAIN LAB Specimen BLOOD MAIN LAB Description RIGHT RADIAL ARTERIAL LINE Special NONE [facility] MAIN LAB Requests Culture NO GROWTH 5 DAYS [facility] MAIN LAB Report Status FINAL [facility] MAIN LAB 03/22/2020 Specimen Blood Performing Organization Address [facility] one Number MAIN LAB [address] [place] [id number] * CULTURE-RESP,LOWER W/SENSITIVITY (03/16/2020 4:55 PM CDT) [...] 03/18/2020 Specimen Tracheal Aspirate Performing Organization Address [facility] Ph one Number MAIN LAB [address] [place] [address] * GRAM STAIN (03/16/2020 4:55 PM CDT) Battery Name GRAM STAIN [facility] MAIN LAB Specimen TRACHEAL ASPIRATE [facility] MAIN LAB Description Special NONE [facility] MAIN LAB Requests Gram Stain LESS THAN 10/LPF MAIN LAB NEUTROPHILS LESS THAN 10/LPF SQUAMOUS EPITHELIAL CELLS NO ORGANISMS SEEN Report Status FINAL [facility] MAIN LAB 03/16/2020 Specimen Tracheal Aspirate Performing Organization Address [facility] Ph one Number [facility] MAIN LAB [address] [place] [address] * CULTURE-BLOOD W/SENSITIVITY (03/16/2020 3:26 PM CDT) Battery Name BLOOD CULTURE [facility] MAIN LAB Specimen BLOOD MAIN LAB Description RIGHT IJ RED LUMEN Special NONE MAIN LAB Requests Culture POSITIVE SMEAR: MAIN LAB GRAM POSITIVE COCCI RESEMBLING STAPHYLOCOCCI one bottle only CRITICAL VALUE CALLED TO AND READ BACK BY/TIME/TECH Ines yhman 1706 03/17/20 by AM STAPHYLOCOCCUS, COAGULASE NEGATIVE , probable contamination. Susceptibility performed only by special request. Report Status FINAL MAIN LAB 03/22/2020 Specimen Blood Performing Organization Address City/State/[facility] Ph one Number MAIN LAB [address] [place] [address] * TELEMETRY STRIPS-SCAN (03/16/2020 12:00 AM CDT) [...] OUTSIDE COVID-19 LAB (SARS-CoV-2) Result Source COVID-19 DESIGN AGENT Swab OTHER OUTSIDE (SARS-CoV-2) LAB COVID-19 NegativeComment: Via Sosa OTHER OU IDE (SARS-CoV-2) [place] LAB RNA Douglas-SARS RNA OTHER OUTSIDE LAB Specimen Nasopharyngeal Swab - Nasopharyngeal Swab Narrative Performed At This result has an attachment that is n ot available. Performing Organization Address City/State/Zipcode Ph one Number OTHER OUTSIDE LAB documented in this encounter Visit Diagnoses Diagnosis Sepsis due to Escherichia coli with enc ephalopathy without septic shock ([facility]) Chest pain on breathing Painful respiration Paroxysmal A-fib ([facility]) Atrial fibrillation Type 2 NSTEMI (non-ST elevated myocardi al infarction) ([facility]) Acute myocardial infarction, subendocar dial infarction, episode of care unspecified Septic shock ([facility]) Unspecified septicemia E. coli sepsis ([facility]) Other septicemia due to gram-negative o [...] 1 dose, Wed03/18/20 at 1745, Created by lisa override, Created by lisa override, 03/27/2020 8:37 AM CDT 50 mg [...] Administer over 10 Minutes, ONCE, 1 dose, 03/18/20 at 1830, SPECIAL TUBING REQUIRED Bolus Dose, [...] Oral, THREE TIMES DAILY, First dose on [facility] 03/16/20 at 2100, Until Discontinued 200 mg [...] 03/16/20 at 1700, Until Wed03/20/20 at 1456, -Initiate at 0.2 mcg/kg/hr and [...] Given 2.5 mg, Intravenous, ONCE, 1 dose, 03/20/20 at 2000, PROTECT FROM LIGHT Haloperidol lactate [...] Oral, EVERY 6 HOURS PRN, Startin g 03/22/20 at 1502, Until 03/24/20 at 1358, Pain PO 5 mg Given 03/23/2020 9:19 AM CDT 5 mg Given 03/22/2020 8:48 PM CDT 03/18/2020 7:17 AM CDT 1.5 Diluted mL perflutren lipid microspheres (DEFINITY) Given injection 1-20 Diluted mL 1-20 Diluted mL, Intravenous, ONCE PRN, 1 dose, Starting 03/18/20 at 0712, Until 03/18/20 at 0717, For Procedure, A preschool aide may only administer Definity through a saline [...] mEq 40 mEq, Oral, ONCE, 1 dose, [facility] 03/20/20 at 1800, - Tablet may be [...] mEq 40 mEq, Oral, ONCE, 1 dose, [facility] 03/21/20 at 0700, - Tablet may [...] mEq 40 mEq, Oral, ONCE, 1 dose, [facility] 03/21/20 at 1915, - Tablet may [...] HOURS PRN, Starting 03/24/20 at 1359, Until Wed03/27/20 at 1009, Pain PO 03/26/2020 10:53 PM [...]
--- OUTSIDE RECORDS SUMMARY | 2020-05-03 11:29 | XMS REPORT | Encounter Summary ---
Author Author [facility] Organization [facility] Address Unknown Phone Unavailable Care Team Providers Care Federal Air Marshal Name Role Phone Sherman Spicer MD Unavailable StaReyna hudson Unavailable Unavailable Indiana Bauer APRN PCP Unavailable Lenka Fuentes RN [phone] Unavailable Encounter Details Care Team Description Date Type Department Unknown, MD Cristi 03/15/2020 Orders Only [facility] [address] [address] Social History Date Tobacco Use Types Packs/Day Years Used Quit: 1979 Former Smoker Cigarettes Smokeless Tobacco: Never Used Drinks/Week oz/Week Comments Alcohol Use No Sex Assigned at Date Recorded Not on file Date Recorded COVID-19 Exposure Response 03/16/2020 11:32 [...]
--- OUTSIDE RECORDS SUMMARY | 2020-05-03 11:29 | XMS REPORT | Encounter Summary ---
Author Author [facility] Organization [facility] Address Unknown Phone Unavailable Care Team Providers Care Foreign Collection Clerk Name Role Phone Sherman Spicer MD Unavailable Stalcup, Reyna Unavailable Unavailable Indiana Bauer APRN PCP Unavailable Reason for Visit * Auth/Cert Referred By Contact Referred To Contact Status Reason Specialty Diagnoses / Procedures Diagnoses E. coli sepsis (HCC) Septic Gallbladder Encounter Details Care Team Description Date Type Department Siva Oliveira MD [address] Orth[facility] [place] [address] [place] [address] 03/16/2020 [facility] [address] [address] Social History Date Tobacco Use [...] Medical automatic 1 each 0 Supply [facility] blood pressure machine [...] daily. Take with food. Follow up with air quality specialist for dose adjustments 03/01/2020 03/27/2020 amiodarone (CORDARONE) [...] mcg capsule by mouth twice daily. 03/27/2020 04/11/2020 furosemide (LASIX) 20 mg Take one 60 tablet 1 tablet tablet by mouth twice daily. 03/01/2020 04/11/2020 lisinopriL (ZESTRIL) 10 Take one 90 tablet 3 mg tablet tablet by mouth daily. 03/27/2020 04/07/2020 melatonin 5 mg tab Take one 0 tablet by mouth at bedtime daily. 03/27/2020 oxyCODONE (ROXICODONE) 10 Take 10 mg by 0 mg tablet mouth every 3-4 hours as needed for Pain 03/27/2020 04/07/2020 senna (SENOKOT) 8.6 mg Take one 0 tablet tablet by mouth twice daily. 03/28/2020 03/28/2020 traZODone (DESYREL) 50 mg Take [...]
--- OUTSIDE RECORDS SUMMARY | 2020-05-03 11:29 | XMS REPORT | Encounter Summary ---
Author Author [facility] Organization [facility] Address Unknown Phone Unavailable Care Team Providers Care Salvage Machine Operator Name Role Phone Sherman Spicer MD Unavailable StaReyna hudson Unavailable Unavailable Indiana Bauer APRN PCP Unavailable Lenka Fuentes RN [phone] Unavailable Reason for Referral * Consult, Test & Treat (Routine) Referred By Contact Referred To Contact Status Reason Specialty Diagnoses / Procedures Lev Wiggins MD [address] [facility] Cardiology [facility] [address] [place] [address] New Request Diagnoses Atrial flutter with rapid ventricular response (HCC) P rocedures REQUEST FOR CARDIOLOGY APPOINTMENT Reason for Visit * Reason Onset Date Comments Appointment 03/21/2020 Encounter Details Care Team Description Date Type Department Samia Garzon RN Appointment 03/21/2020 Telephone Cardiology: [address] [place] [address] Social History Date Tobacco Use Types Packs/Day [...]
--- OUTSIDE RECORDS SUMMARY | 2020-05-03 11:29 | XMS REPORT | Encounter Summary ---
Author Author [facility] Organization [facility] Address Unknown Phone Unavailable Care Team Providers Care Dip Unit Operator Name Role Phone Sherman Spicer MD [...]
--- OUTSIDE RECORDS SUMMARY | 2020-05-03 11:29 | XMS REPORT | Encounter Summary ---
Author Author [facility] Organization [facility] Address Unknown Phone Unavailable Care Team Providers Care Sand Operator Name Role Phone Sherman Spicer MD Unavailable Reyna Bond Unavailable Unavailable Indiana Bauer APRN PCP Unavailable Lenka Fuentes RN [phone] Unavailable Reason for Visit * Reason Onset Date Comments Follow-up Phone Call 03/25/2020 Encounter Details Care Team Description Date Type Department Tsering Diehl, RN Follow-up Phone Call 03/25/2020 Telephone Cardiology: [place] [address] [place] [facility] [place] [address] Social History Date Tobacco Use Types [...] Miscellaneous Notes * Telephone Encounter - Tsering Diehl, GORDO - 03/25/2020 4:35 PM CDT This RN contacted pt in regards to VM on triage line requesting MPE presence in hospital. No answer, LVM with call back number. * Telephone Encounter - Tsering Diehl RN - 03/25/2020 4:20 PM CDT ----- Message from Mercy Carbajal LPN sent at 03/25/2020 1:16 PM CDT ----- Regarding: MPE- in hospital VM from patient on triage line. Said that he is in [facility] and would like MPE to come see him as soon as possible. He is on 8th floor, #[phone]. documented in this encounter Plan of Treatment [...]
--- OUTSIDE RECORDS SUMMARY | 2020-05-03 11:29 | XMS REPORT | Encounter Summary ---
Author Author [facility] Organization [facility] Address Unknown Phone Unavailable Care Team Providers Care Roving Teller Name Role Phone Sherman Spicer MD Unavailable StaReyna hudson Unavailable Unavailable Indiana Bauer APRN PCP Unavailable Lenka Fuentes RN [phone] Unavailable Encounter Details Care Team Description Date Type Department Lenka Fuentes RN 03/21/2020 Patient [facility] [address] [place] [address] Social History Date Tobacco Use Types Packs/Day [...] considerations as appropriate. Lenka Fuentes RN Office #[phone] documented in this encounter Plan of Treatment [...]
--- OUTSIDE RECORDS SUMMARY | 2020-05-03 11:29 | XMS REPORT | Encounter Summary ---
Author Author [facility] Organization [facility] Address Unknown Phone Unavailable Care Team Providers Care Skoog Operator Name Role Phone Sherman Spicer MD Unavailable StaReyna hudson Unavailable Unavailable Indiana Bauer APRN PCP Unavailable Lenka Fuentes RN [phone] Unavailable Encounter Details Care Team Description Date Type Department 03/27/2020 Travel Social History Date Tobacco Use Types Packs/Day Years Used Quit: 1979 Former Smoker Cigarettes Smokeless Tobacco: Never Used Drinks/Week oz/Week Comments Alcohol Use No Sex Assigned at Date Recorded Not on file Date Recorded COVID-19 Exposure Response 03/27/2020 6:26 AM CDT In the last month, have you been in contact with [facility] to assess someone who was [...]
--- OUTSIDE RECORDS SUMMARY | 2020-05-03 11:29 | XMS REPORT | Encounter Summary ---
Author Author [facility] Organization [facility] Address Unknown Phone Unavailable Care Team Providers Care Granite Setter Name Role Phone Sherman Spicer MD Unavailable StaReyna hudson Unavailable Unavailable Indiana Bauer APRN PCP Unavailable Encounter Details Care Team Description Date Type Department 03/16/2020 [facility] [address] [address] Social History Date Tobacco Use [...] Miscellaneous Medical automatic 1 each 0 Supply [facility] blood pressure machine to monitor VS daily. [...] daily. Take with food. Follow up with point of care specialist for dose adjustments 03/01/2020 03/27/2020 amiodarone [...]
--- OUTSIDE RECORDS SUMMARY | 2020-05-03 11:30 | XMS REPORT | Encounter Summary ---
Author Author [facility] Organization [facility] Address Unknown Phone Unavailable Care Team Providers Care Interactive Web Developer Name Role Phone Sherman Spicer MD Unavailable StaReyna hudson Unavailable Unavailable Indiana Bauer APRN PCP Unavailable Encounter Details Care Team Description Date Type Department 03/13/2020 [facility] [address] [address] Social History Date Tobacco Use Types Packs/Day Years Used Quit: 1979 Former Smoker Cigarettes Smokeless Tobacco: Never Used Drinks/Week oz/Week Comments Alcohol Use No Sex Assigned at Date Recorded Not on file Date Recorded COVID-19 Exposure Response 03/01/2020 9:05 [...] Medical automatic 1 each 0 Supply [facility] blood pressure machine to monitor VS daily. 03/01/2020 03/27/2020 amiodarone (CORDARONE) Take two 266 tablet 0 200 mg tablet tablets by mouth twice daily for 14 days, THEN one tablet three times daily for 30 days, THEN two tablets daily for 60 days. Take with food. 03/01/2020 04/11/2020 lisinopriL (ZESTRIL) 10 Take one 90 tablet 3 mg tablet tablet by mouth daily. 03/27/2020 oxyCODONE (ROXICODONE) [...]
--- OUTSIDE RECORDS SUMMARY | 2020-05-03 11:30 | XMS REPORT | Encounter Summary ---
Author Author [facility] Organization [facility] Address Unknown Phone Unavailable Care Team Providers Care Cable Hooker Name Role Phone Sherman Spicer MD Unavailable StaReyna hudson Unavailable Unavailable Indiana Bauer APRN PCP Unavailable Reason for Visit * Reason Onset Date Comments Test/procedure 03/11/2020 PFT needed. Encounter Details Care Team Description Date Type Department Patrick Constantino RN Test/procedure (PFT needed.) 03/11/2020 Telephone Cardiology: [facility] [address] [facility] [place] [address] Social History Date Tobacco Use Types Packs/Day [...] amio start. Pt given PFT scheduling number [phone] and advised to complete this in the [...]
--- OUTSIDE RECORDS SUMMARY | 2020-05-03 11:30 | XMS REPORT | Encounter Summary ---
Author Author [facility] Organization [facility] Address Unknown Phone Unavailable Care Team Providers Care Forest Practices Field Coordinator Name Role Phone Sherman Spicer MD Unavailable Reyna Bond Unavailable Unavailable Indiana Bauer APRN PCP Unavailable Encounter Details Care Team Description Date Type Department Ya Howard RN 03/05/2020 Telephone Cardiology: [place] [address] [facility] [place] [address] Social History Date Tobacco Use Types [...] kidneys and belly hurt. Call him at #[phone] and said to keep trying if he [...]
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
--- OUTSIDE RECORDS SUMMARY | 2020-05-03 11:30 | XMS REPORT | Encounter Summary ---
Author Author [facility] Organization [facility] Address Unknown Phone Unavailable Care Team Providers Care Drug Safety Physician Name Role Phone Sherman Spicer MD Unavailable StaReyna hudson Unavailable Unavailable Indiana Bauer APRN PCP Unavailable Encounter Details Care Team Description Date Type Department 03/13/2020 [facility] [address] [address] Social History Date Tobacco Use [...] Miscellaneous Medical automatic 1 each 0 Supply [facility] blood pressure machine to monitor VS daily. [...]
--- OUTSIDE RECORDS SUMMARY | 2020-05-03 11:30 | XMS REPORT | Encounter Summary ---
Author Author [facility] Organization [facility] Address Unknown Phone Unavailable Care Team Providers Care Chemistry Lecturer Name Role Phone Sherman Spicer MD Unavailable StaReyna hudson Unavailable Unavailable Indiana Bauer APRN PCP Unavailable Encounter Details Care Team Description Date Type Department 03/12/2020 [facility] [address] [address] Social History Date Tobacco Use [...] Miscellaneous Medical automatic 1 each 0 Supply [facility] blood pressure machine [...]
--- OUTSIDE RECORDS SUMMARY | 2020-05-03 11:30 | XMS REPORT | Encounter Summary ---
Author Author [facility] Organization [facility] Address Unknown Phone Unavailable Care Team Providers Care Product Management Intern Name Role Phone Sherman Spicer MD Unavailable StaReyna hudson Unavailable Unavailable Indiana Bauer APRN PCP Unavailable Encounter Details Care Team Description Date Type Department 03/14/2020 [facility] [address] [address] Social History Date Tobacco Use [...] Miscellaneous Medical automatic 1 each 0 Supply [facility] blood pressure machine to monitor VS daily. [...]
--- OUTSIDE RECORDS SUMMARY | 2020-05-03 11:30 | XMS REPORT | Encounter Summary ---
Author Author [facility] Organization [facility] Address Unknown Phone Unavailable Care Team Providers Care [employer] Industrial Arts Teacher Name Role Phone Sherman Spicer MD [...]
--- OUTSIDE RECORDS SUMMARY | 2020-05-03 11:30 | XMS REPORT | Encounter Summary ---
Author Author [facility] Organization [facility] Address Unknown Phone Unavailable Care Team Providers Care Remote Pilot Operator Name Role Phone Sherman Spicer MD Unavailable StaReyna hudson Unavailable Unavailable Indiana Bauer APRN PCP Unavailable Reason for Visit * Reason Onset Date Comments Follow Up 03/11/2020 unsure of reason of call, LM to c/b Encounter Details Care Team Description Date Type Department Ya Howard, RN Follow Up (unsure of reason of call, LM to c/b) 03/11/2020 Telephone Cardiology: [place] [address] [place] [address] Social History Date Tobacco Use Types [...] out do same day. Call him at #[phone]. documented in this encounter Plan of Treatment [...]
--- OUTSIDE RECORDS SUMMARY | 2020-05-03 11:30 | XMS REPORT | Encounter Summary ---
Author Author [facility] Organization [facility] Address Unknown Phone Unavailable Care Team Providers Care Artist'S Model Name Role Phone Sherman Spicer MD Unavailable StaReyna hudson Unavailable Unavailable Indiana Bauer APRN PCP Unavailable Encounter Details Care Team Description Date Type Department 03/11/2020 [facility] [address] [address] Social History Date Tobacco Use [...] automatic 1 each 0 Supply [facility] blood pressure machine to monitor VS daily. [...]
--- OUTSIDE RECORDS SUMMARY | 2020-05-03 11:30 | XMS REPORT | Encounter Summary ---
Author Author [facility] Organization [facility] Address Unknown Phone Unavailable Care Team Providers Care Healthcare Analyst Name Role Phone Sherman Spicer MD Unavailable StaReyna hudson Unavailable Unavailable Indiana Bauer APRN PCP Unavailable Encounter Details Care Team Description Date Type Department Ya Howard RN 03/06/2020 Telephone Cardiology: [place] [address] [facility] [place] [address] Social History Date Tobacco [...] Yousif from patient on triage line. Said that he got a wrist b/p cuff and was 110/73. How often should he check it. * Telephone Encounter - Ya Howard RN - 03/06/2020 12:00 PM CDT returned [...]
--- OUTSIDE RECORDS SUMMARY | 2020-05-03 11:30 | XMS REPORT | Encounter Summary ---
Author Author [facility] Organization [facility] Address Unknown Phone Unavailable Care Team Providers Care Coroner Technician Name Role Phone Sherman Spicer MD Unavailable StaReyna hudson Unavailable Unavailable Indiana Bauer APRN PCP Unavailable Encounter Details Care Team Description Date Type Department 03/11/2020 [facility] [address] [address] Social History Date Tobacco Use [...] Medical automatic 1 each 0 Supply [facility] blood pressure machine to monitor [...]
--- OUTSIDE RECORDS SUMMARY | 2020-05-03 11:30 | XMS REPORT | Encounter Summary ---
Author Author [facility] Organization [facility] Address Unknown Phone Unavailable Care Team Providers Care Extrusion Utility Worker Name Role Phone Sherman Spicer MD Unavailable Stalcup, Reyna Unavailable Unavailable Indiana Bauer APRN PCP Unavailable Reason for Visit * Reason Onset Date Comments Nausea 03/12/2020 lm that n/v after t aking medication, attempted to c/b - line disconnected Encounter Details Care Team Description Date Type Department Ya Howard RN Nausea (lm that n/v after taking medicat ion, attempted to c/b - line disconnected) 03/12/2020 Telephone Cardiology: [place] [address] [place] [address] Social History Date Tobacco Use Types [...] Encounter - Ya Howard RN - 03/12/2020 2:48 PM CDT attempted to call today however, recording said line disconnected. will keep trying to call * Telephone Encounter - Ya Howard RN - 03/12/2020 2:47 PM CDT ----- Message from Mercy Carbajal LPN sent at 03/12/2020 8:13 AM CDT ----- Regarding: PATRICK NEGRETE from patient on triage line at 4:54pm [...] at 03/12/2020 8:13 AM CDT ----- Regarding: PATRICK NEGRETE from patient on triage line at 4:54pm [...]
--- OUTSIDE RECORDS SUMMARY | 2020-05-03 11:30 | XMS REPORT | Encounter Summary ---
Author Author [facility] Organization [facility] Address Unknown Phone Unavailable Care Team Providers Care Rn Gyn Name Role Phone Sherman Spicer MD Unavailable StaReyna hudson Unavailable Unavailable Indiana Bauer APRN PCP Unavailable Encounter Details Care Team Description Date Type Department 03/13/[address] [facility] [address] [address] Social History Date Tobacco Use [...]
--- OUTSIDE RECORDS SUMMARY | 2020-05-03 11:30 | XMS REPORT | Encounter Summary ---
Author Author [facility] Organization [facility] Address Unknown Phone Unavailable Care Team Providers Care Manager Talent Acquisition Name Role Phone Sherman Spicer MD Unavailable StaReyna hudson Unavailable Unavailable Indiana Bauer APRN PCP Unavailable Encounter Details Care Team Description Date Type Department 03/13/2020 [facility] [address] [address] Social History Date Tobacco Use [...] Miscellaneous Medical automatic 1 each 0 Supply [facility] blood pressure machine to [...] Procedure Name Priority Date/Time Associated Diag nosis [facility] EXTERNAL IMAG[facility] Routine 03/13/2020 12:10 AM CDT documented in this encounter Results * [facility] EXTERNAL IM[facility] (03/13/2020 12:10 AM CDT) Specimen Narrative Performed At This order has been auto finalized and does not contain a result. documented in this encounter Visit Diagnoses Not on filedocumented in this encounter
--- OUTSIDE RECORDS SUMMARY | 2020-05-03 11:31 | XMS REPORT | Encounter Summary ---
Author Author [facility] Organization [facility] Address Unknown Phone Unavailable Care Team Providers Care Gripper Machine Operator Name Role Phone Sherman Spicer MD Unavailable Stalcup, Reyna Unavailable Unavailable Indiana Bauer APRN PCP Unavailable Reason for Visit * Reason Onset Date Comments Tachycardia 02/28/2020 multiple attempts t o contact, no answer, he c/b but unable to return call Encounter Details Care Team Description Date Type Department Cecy He RN Tachycardia (multiple attempts to contac t, no answer, he c/b but unable to return call) 02/28/2020 Telephone Cardiology: [facility] [place] [address] Social History Date Tobacco Use Types Packs/Day Years Used Quit: 1979 Former Smoker Cigarettes Smokeless Tobacco: Never Used Drinks/Week oz/Week Comments Alcohol Use No Sex Assigned at Date Recorded Not on file Date Recorded COVID-19 Exposure Response 02/20/2020 8:47 [...] Said to call him in am at #[phone]. documented in this encounter Plan of Treatment [...]
--- OUTSIDE RECORDS SUMMARY | 2020-05-03 11:31 | XMS REPORT | Encounter Summary ---
Author Author [facility] Organization [facility] Address Unknown Phone Unavailable Care Team Providers Care Refinery Operator Visbreaking Name Role Phone Sherman Spicer MD Unavailable Ronda Reyna Unavailable Unavailable Indiana Bauer APRN PCP Unavailable Reason for Visit * Reason Onset Date Comments Follow-up Phone Call 02/21/2020 Encounter Details Care Team Description Date Type Department Tsering Diehl, RN Follow-up Phone Call 02/21/2020 Telephone Cardiology: [facility] [address] [place], [place] [id number] Social History Date Tobacco Use Types Packs/Day [...] Encounter - Tsering Diehl, GORDO - 02/21/2020 3:11 PM CDT This RN attempted to return pts call from triage line, at the number he provided , in regards to his inpt concerns. No answer, LVM with call back number. * Telephone Encounter - Tsering Diehl RN - 02/21/2020 3:09 PM CDT ----- Message [...] would like MPE approval. He is at #[phone]. documented in this encounter Plan of Treatment [...]
--- OUTSIDE RECORDS SUMMARY | 2020-05-03 11:31 | XMS REPORT | Encounter Summary ---
Author Author [facility] Organization [facility] Address Unknown Phone Unavailable Care Team Providers Care Carboy Filler Name Role Phone Sherman Spicer MD Unavailable [...]
--- OUTSIDE RECORDS SUMMARY | 2020-05-03 11:31 | XMS REPORT | Encounter Summary ---
Author Author [facility] Organization [facility] Address Unknown Phone Unavailable Care Team Providers Care Remelt Furnace Expediter Name Role Phone Sherman Spicer MD Unavailable Ronda Reyna Unavailable Unavailable Indiana Bauer APRN PCP Unavailable Reason for Visit * Reason Onset Date Comments Medication Question 02/23/2020 pt is on HC9 Encounter Details Care Team Description Date Type Department Brandi Wolfe RN Medication Question (pt is on HC9) 02/23/2020 Telephone Cardiology: [facility] [address] [place], [place] [id number] [place] [address] Social History Date Tobacco Use Types Packs/Day [...] sick. He would like call back at #[phone]. documented in this encounter Plan of Treatment [...]
--- OUTSIDE RECORDS SUMMARY | 2020-05-03 11:31 | XMS REPORT | Encounter Summary ---
Author Author [facility] Organization [facility] Address Unknown Phone Unavailable Care Team Providers Care Hydraulic Tester Name Role Phone Sherman Spicer MD Unavailable StaReyna hudson Unavailable Unavailable Indiana Bauer APRN PCP Unavailable Reason for Visit * Reason Onset Date Comments Other 02/06/2020 Encounter Details Care Team Description Date Type Department Brandi Wolfe, GORDO Other 02/06/2020 Telephone Cardiology: [facility] [address] [place], [place] [id number] Social History Date Tobacco Use Types Packs/Day Years Used Quit: 1979 Former Smoker Cigarettes Smokeless Tobacco: Never Used Drinks/Week oz/Week Comments Alcohol Use No Sex Assigned at Date Recorded Not on file Date Recorded COVID-19 Exposure Response 02/01/2020 10:16 [...] NEGRETE from patient on triage line. Said he [...] 8:10 AM CDT ----- Regarding: MPE- MAYKEL VM from patient on triage line at 5:35pm yesterday returning our call. Said that he was sleeping and not feeling good, all I'm doing is sleeping. He is at #[phone]. documented in this encounter Plan of Treatment [...]
--- OUTSIDE RECORDS SUMMARY | 2020-05-03 11:31 | XMS REPORT | Encounter Summary ---
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 [address] * PTT (APTT) (02/20/2020 11:33 PM CDT) APTT 32.4 24.0 - 36.5 SEC MAIN LAB Specimen Blood Performing Organization Address [facility] Ph one Number MAIN LAB [address] [place] [address] * PROTIME INR (PT) (02/20/2020 11:33 PM CDT) INR 1.3 (H) 0.8 - 1.2 MAIN LAB Specimen Blood Performing Organization Address [facility] Ph one Number MAIN LAB [address] [place] [address] * CBC AND DIFF (02/20/2020 11:33 PM [...] one Number [facility] MAIN [facility] [address] [place] [address] * TELEMETRY STRIPS-SCAN (02/20/2020 12:00 AM CDT) [...] mg, Oral, EVERY 6 HOURS PRN, Starting Wed02/22/20 at 1933, Until Wed02/23/20 at 1348, Pain [...]
--- OUTSIDE RECORDS SUMMARY | 2020-05-03 11:31 | XMS REPORT | Encounter Summary ---
Author Author [facility] Organization [facility] Address Unknown Phone Unavailable Care Team Providers Care Lawyer Real Estate Name Role Phone Sherman Spicer MD Unavailable Reyna Bond Unavailable Unavailable Indiana Bauer APRN PCP Unavailable Encounter Details Care Team Description Date Type Department 02/20/2020 [facility] [address] [address] Social History Date Tobacco Use [...]
--- OUTSIDE RECORDS SUMMARY | 2020-05-03 11:32 | XMS REPORT | Encounter Summary ---
Author Author [facility] Organization [facility] Address Unknown Phone Unavailable Care Team Providers Care Tube Cleaner Name Role Phone Sherman Spicer MD Unavailable Stalcup, Reyna Unavailable Unavailable Indiana Bauer APRN PCP Unavailable Reason for Visit * Reason Onset Date Comments Tachycardia 01/24/2020 Encounter Details Care Team Description Date Type Department Patrick Constantino RN Tachycardia 01/24/2020 Telephone Cardiology: [facility], [address] [place] [address] Social History Date Tobacco Use Types Packs/Day Years Used Quit: 1979 Former Smoker Cigarettes Smokeless Tobacco: Never Used Drinks/Week oz/Week Comments Alcohol Use No Sex Assigned at Date Recorded Not on file Date Recorded COVID-19 Exposure Response 01/17/2020 6:42 [...] nothing that he needs to go to [facility] for. His HR is up to 110 to 116, is that too high. Call him at #[phone]. documented in this encounter Plan of Treatment [...]
--- OUTSIDE RECORDS SUMMARY | 2020-05-03 11:32 | XMS REPORT | Encounter Summary ---
Author Author [facility] Organization [facility] Address Unknown Phone Unavailable Care Team Providers Care World Renowned Chef And Restaurant Owner Name Role Phone Sherman Spicer MD Unavailable StaReyna husdon Unavailable Unavailable Indiana Bauer APRN PCP Unavailable [...]
--- OUTSIDE RECORDS SUMMARY | 2020-05-03 11:32 | XMS REPORT | Encounter Summary ---
Author Author [facility] Organization [facility] Address Unknown Phone Unavailable Care Team Providers Care Copy Director Name Role Phone Sherman Spicer MD Unavailable Reyna Bond Unavailable Unavailable Indiana Bauer APRN PCP Unavailable Reason for Visit * Reason Onset Date Comments Follow-up Phone Call 02/05/2020 Encounter Details Care Team Description Date Type Department Tsering Diehl, RN Follow-up Phone Call 02/05/2020 Telephone Cardiology: [facility] [address] [facility] [place], [place] [id number] Social History Date Tobacco Use Types Packs/Day [...] Notes * Telephone Encounter - Tsering Diehl, RN - 02/05/2020 4:42 PM CDT This RN attempted to contact pt in regards to his VM message on triage line. No answer, left message with call back number. * Telephone Encounter - Tsering Diehl, GORDO - 02/05/2020 4:41 PM CDT ----- Message from Mercy Carbajal LPN sent at 02/05/2020 10:03 AM CDT ----- Regarding: MPE- RC VM from patient on triage line returning our call. Said that he is sorry he missed our call but was in doctors office. Call him at #[phone]. documented in this encounter Plan of Treatment [...]
--- OUTSIDE RECORDS SUMMARY | 2020-05-03 11:32 | XMS REPORT | Encounter Summary ---
Author Author [facility] Organization [facility] Address Unknown Phone Unavailable Care Team Providers Care Rocket Assembly Operator Name Role Phone Sherman Spicer MD Unavailable Stabecca Reyna Unavailable Unavailable Indiana Bauer APRN PCP Unavailable Reason for Visit * Reason Onset Date Comments Anticoagulation 02/01/2020 Eliquis hold Encounter Details Care Team Description Date Type Department Noemi Hernandez RN Anticoagulation (Eliquis hold ) 02/01/2020 Telephone Cardiology: [facility], [address] [place] [address] Social History Date Tobacco Use Types Packs/Day [...] Telephone Encounter - Ya Howard RN - 02/02/2020 3:[address] [...] of mesenteric thrombosis and pulm onary embolism. [id number] score of1:Hypertension He was last see in [...] if so, how long? Call him at #[phone]. documented in this encounter Plan of Treatment [...]
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
--- OUTSIDE RECORDS SUMMARY | 2020-05-03 11:33 | XMS REPORT | Encounter Summary ---
Author Author [facility] Organization [facility] Address Unknown Phone Unavailable Care Team Providers Care Attending Ambulatory Care Name Role Phone Sherman Spicer MD Unavailable StabeccaReyna Unavailable Unavailable Indiana Bauer APRN PCP Unavailable Reason for Visit * Reason Onset Date Comments Other 11/07/2019 Cardiac Rehab Refer ral Encounter Details Care Team Description Date Type Department Rafia Snyder RN Other (Cardiac Rehab Referral) 11/07/2019 Telephone Cardiology: [facility] [address] [id number] [address] [place] [address] Social History Date Tobacco Use [...] Rafia Snyder RN - 11/07/2019 4:41 PM GARMENT TAG STRINGER RN verifying that patient qualifies for cardiac rehab before calling patient dede k. Patient can also call insurance to see if he would qualify for cardiac rehab. RN called provided call back number ([phone]) and was able to LVM informing patient of the above. RN left call back number in message. Will remain availab le. Renetta RN. ----- Message ----- From: Mercy Carbajal LPN Sent: 11/06/2019 8:18 AM GARMENT TAG STRINGER To: Cvm Nurse Ep Subject: MPE- referral VM from patient on triage line Wednesday at 6:10pm. He wanted to know if we had chance to see if MPE would do the heart rehab referr al for him. Call back at # [phone]. 2019 1337 - RN returning call to patient to inform him that he would need t o call rehab center first to see if he qualifies for cardiac rehab. RN attempted to contact patient twice ([phone] both times and both times received the [...] referral first? Call him back at # [phone]. ENT TAG STRINGER documented in this encounter Plan of Treatment Not on filedocumented as of this encounter Goals Goal Patient Associated Recent Progress Patient-Stat Aut hor Goal Type Problems ed? GOAL General No Tana Saldivar, RN Note: Get stronger Take Medication at Right Time, Medication No Lind, Right Day, Right Order, With Adherence Dnailo Moseley N or Without Food Correctly documented as of this encounter Visit Diagnoses Not on filedocumented in this encounter
--- OUTSIDE RECORDS SUMMARY | 2020-05-03 11:33 | XMS REPORT | Encounter Summary ---
Author Author [facility] Organization [facility] Address Unknown Phone Unavailable Care Team Providers Care Traffic Control Specialist Name Role Phone Sherman Spicer MD [...]
--- OUTSIDE RECORDS SUMMARY | 2020-05-03 11:33 | XMS REPORT | Encounter Summary ---
Author Author [facility] Organization [facility] Address Unknown Phone Unavailable Care Team Providers Care Commercial Pilot Name Role Phone Sherman Spicer MD Unavailable Stabecca Reyna Unavailable Unavailable Indiana Bauer APRN PCP Unavailable Reason for Visit * Reason Onset Date Comments Follow-up Phone Call 01/05/2020 returned call, l m to c/b Encounter Details Care Team Description Date Type Department Ya Howard RN Follow-up Phone Call (returned call, lm to c/b) 01/05/2020 Telephone Cardiology: [facility] [address] [place], [place] [id number] [place] [address] Social History Date Tobacco Use Types Packs/Day [...] has a heart question. Call him at #[phone]. documented in this encounter Plan of Treatment [...]
--- OUTSIDE RECORDS SUMMARY | 2020-05-03 11:33 | XMS REPORT | Encounter Summary ---
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 EP consulted, RRR rounding today. Encounter Details Care Team Description Date Type Department Patrick Constantino, RN Follow Up (Pt requested MPE to see chepe i n hospital room. EP consulted, RRR rounding today.) 01/18/2020 Telephone Cardiology: [facility] [address] [place] [address] Social History Date Tobacco Use Types Packs/Day [...] by and see him. He is at #[phone]. documented in this encounter Plan of Treatment [...]
--- OUTSIDE RECORDS SUMMARY | 2020-05-03 11:33 | XMS REPORT | Encounter Summary ---
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 Rice Address: [place] [address] Mobile Relation: Son Secondary Emergency Contact: Onur Rice Mobile Relation: Son Tree Trimmer needed? No Healthcare Directive Healthcare Directive: No, [...] Services ? PCP Indiana Bauer, None, None Chief Station Engineer: Dr. Rodriguez at ? Pharmacy [facility] - [place], [place] - [address] [facility] [address] [facility] [address] [id number] [place], [place] - [address] [place] [address] & [address] [facility] [address] ? Durable Medical Equipment Durable Medical Equipment [...] ? Outpatient Therapy PT: No OT: No SECRETARY BOOK KEEPER: No ? [facility] SNF: No NH: No ? Inpatient Rehab IPR: No ? [facility] LTACH: No ? Acute Hospital Stay Acute Hospital Stay: In the past Was patient's stay within the last 30 days?: No Steph Meyers LMSW *[id number] * Care Plan - [place] [...] >60 >60 mL/min [facility] MAIN LAB Comment: [place] The eGFR is not validated f or use in drug dosing adjustments. Continue to use estimated creatinine clearance per dosing reference text. Please contact the Clinical Pharmacist for questions. eGFR >60 >60 mL/min [facility] MAIN LAB [place] Comment: The eGFR is not validated for use in drug dosing adjustments. Continue to use estimated creatinine clearance per dosing reference text. Please contact the Clinical Pharmacist for questions. Specimen Blood Performing Organization Address City/[facility] Ph one Number MAIN LAB [address] [place] [address] * MAGNESIUM (01/22/2020 3:56 AM CDT) Magnesium 2.2 1.6 - 2.6 mg/dL MAIN LAB Specimen Blood Performing Organization Address City/[facility] Ph one Number MAIN LAB [address] [place] [id number] * PROTIME INR (PT) (01/22/2020 3:56 AM CDT) INR 1.1 0.8 - 1.2 MAIN LAB Specimen Blood Performing Organization Address [facility] Ph one Number MAIN LAB [address] [place] [address] * CBC AND DIFF (01/22/2020 3:56 AM CDT) White Blood 8.9 4.5 - 11.0 K/UL MAIN LAB Cells RBC 5.20 4.4 - 5.5 M/UL MAIN LAB Hemoglobin 14.5 13.5 - 16.5 GM/DL K[facility] MAIN LAB Hematocrit 43.2 40 - 50 % [facility] MAIN LAB MCV 83.0 80 - 100 FL MAIN LAB MCH 27.9 26 - 34 [...] LAB Absolute 5.56 1.8 - 7.0 K/UL MAIN LAB Neutrophil Count Absolute Lymph 1.51 1.0 - 4.8 K/UL [facility] MAIN LAB Count Absolute 1.03 (H) 0 - 0.80 K/UL K[facility] MAIN LAB Monocyte Count Absolute 0.73 (H) 0 - 0.45 K/UL KU MAIN LAB Eosinophil Count Absolute 0.11 0 - 0.20 K/UL KU MAIN LAB Basophil Count Specimen Blood Performing Organization Address [facility] Ph one Number MAIN LAB [address] [place] [address] * PROTIME INR (PT) (01/21/2020 4:38 AM CDT) INR 1.1 0.8 - 1.2 MAIN LAB Specimen Blood Performing Organization Address [facility] Ph one Number MAIN LAB [address] [place] [address] * MAGNESIUM (01/21/2020 4:38 AM CDT) Magnesium 2.3 1.6 - 2.6 mg/dL MAIN LAB Specimen Blood Performing Organization Address [facility] Ph one Number MAIN LAB [address] [place] [address] * COMPREHENSIVE METABOLIC PANEL (01/21/2020 4:38 AM [...] >60 >60 mL/min [facility] MAIN LAB Comment: [place] The eGFR is not validated f or use in drug dosing adjustments. Continue to use estimated creatinine clearance per dosing reference text. Please contact the Clinical Pharmacist for questions. eGFR >60 >60 mL/min [facility] MAIN LAB [place] Comment: The eGFR is not validated for use in drug dosing adjustments. Continue to use estimated creatinine clearance per dosing reference text. Please contact the Clinical Pharmacist for questions. Specimen Blood Performing Organization Address City/State/Zipcode Ph one Number [facility] MAIN LAB [address] [place] [address] * CBC AND DIFF (01/21/2020 4:38 AM [...] Basophil Count Specimen Blood Performing Organization Address [facility] Ph one Number [facility] MAIN LAB [address] [place] [address] * PROTIME INR (PT) (01/20/2020 9:52 AM CDT) INR 1.2 0.8 - 1.2 [facility] MAIN LAB Specimen Blood Performing Organization Address [facility] one Number MAIN LAB [address] [place] [address] * MAGNESIUM (01/20/2020 4:03 AM CDT) Pathologist [facility] Magnesium 2.2 1.6 - 2.6 mg/dL [facility] MAIN LAB Specimen Blood Performing Organization Address [facility] one Number MAIN LAB [address] [place] [address] * COMPREHENSIVE METABOLIC PANEL (01/20/2020 4:03 AM [...] >60 >60 mL/min [facility] MAIN LAB Comment: [place] The eGFR is not validated f or use in drug dosing adjustments. Continue to use estimated creatinine clearance per dosing reference text. Please contact the Clinical Pharmacist for questions. eGFR >60 >60 mL/min [facility] MAIN LAB [place] Comment: The eGFR is not validated for use in drug dosing adjustments. Continue to use estimated creatinine clearance per dosing reference text. Please contact the Clinical Pharmacist for questions. Specimen Blood Performing Organization Address City/[facility] Ph one Number [facility] MAIN LAB [address] [place] [address] * CBC AND DIFF (01/20/2020 4:03 AM [...] Count Specimen Blood Performing Organization Address City/[facility] Ph one Number [facility] MAIN LAB [address] [place] [address] * PROTIME INR (PT) (01/19/2020 4:21 AM CDT) INR 1.2 0.8 - 1.2 [facility] MAIN LAB Specimen Blood Performing Organization Address [facility] one Number MAIN LAB [address] [place] [address] * MAGNESIUM (01/19/2020 4:21 AM CDT) Pathologist [facility] Magnesium 2.0 1.6 - 2.6 mg/dL [facility] MAIN LAB Specimen Blood Performing Organization Address [facility] one Number MAIN LAB [address] [place] [address] * COMPREHENSIVE METABOLIC PANEL (01/19/2020 4:21 AM [...] >60 >60 mL/min [facility] MAIN LAB Comment: [place] The eGFR is not validated f or use in drug dosing adjustments. Continue to use estimated creatinine clearance per dosing reference text. Please contact the Clinical Pharmacist for questions. eGFR >60 >60 mL/min [facility] MAIN LAB [place] Comment: The eGFR is not validated for use in drug dosing adjustments. Continue to use estimated creatinine clearance per dosing reference text. Please contact the Clinical Pharmacist for questions. Specimen Blood Performing Organization Address [facility]/Zipcode Ph one Number MAIN LAB [address] [place] [address] * CBC AND DIFF (01/19/2020 4:21 AM CDT) Pathologist [facility] White Blood 11.7 (H) 4.5 - 11.0 K/UL MAIN LAB Cells RBC 5.16 4.4 - 5.5 M/UL [facility] MAIN LAB Hemoglobin 14.2 13.5 - 16.5 GM/DL [facility] MAIN LAB Hematocrit 42.9 40 - 50 % [facility] MAIN LAB MCV 83.2 80 - 100 FL KU MAIN LAB MCH 27.5 26 - 34 PG MAIN LAB MCHC [...] 0 - 2 % MAIN LAB Absolute 7.40 (H) 1.8 - [...] Count Specimen Blood Performing Organization Address City/[facility] Ph one Number MAIN LAB [address] [place] [address] * POC GLUCOSE (01/18/2020 8:45 PM CDT) Pathologist [facility] Glucose, POC 94 70 - 100 MG/DL MAIN LAB Specimen Performing Organization Address City/[facility] Ph one Number MAIN LAB [address] [place] [address] * 2D + DOPPLER ECHO (01/18/2020 9:49 AM CDT) [facility] IVS 1.31 0.6 - 1.0 cm OTHER [...] 34 OTHER OUTSIDE Index LAB Cardiology Siemens [id number] OTHER OUTSIDE Ultrasound LAB Machine Left Ventricle [...] 2018, EF slightly improved. Performing Organization Address [facility] one Number OTHER OUTSIDE LAB * TROPONIN-I (01/18/2020 6:03 AM CDT) Troponin-I 0.08 (H) 0.0 - 0.05 NG/ML MAIN LAB Specimen Blood Performing Organization Address [facility] one Number [facility] LAB [address] [place] [address] * UA REFLEX CULTURE LABEL (01/18/2020 3:50 AM CDT) UA Reflex Criteria for reflex to culture [facility] N LAB Culture are WBC>10, Positive Nitrit e, and/or >=+1 leukocytes. If quantity is not sufficient, an addendum will follow. Specimen Urine Performing Organization Address [facility] one Number [facility] LAB [address] [place] [address] * URINALYSIS MICROSCOPIC REFLEX TO CULTURE (01/18/2020 3:50 AM CDT) WBCs,UA 0-2 0 - 2 /HPF MAIN LAB RBCs,UA 0-2 0 - 3 /HPF MAIN LAB Comment,UA Criteria for reflex to culture [facility] ARUN N LAB are WBC>10, Positive Nitrite, and/or >=+1 leukocytes. If quantity is not sufficient, an addendum will follow. MucousUA 2+ MAIN LAB Specimen Urine Performing Organization Address [facility] one Number [facility] LAB [address] [place] [address] * URINALYSIS DIPSTICK REFLEX TO CULTURE (01/18/2020 3:50 AM CDT) Color,UA YELLOW [facility] MAIN LAB Turbidity,UA CLEAR CLEAR-CLEAR [facility] MAIN LAB Specific 1.019 1.003 - 1.035 [facility] MAIN LAB [place]-Urine pH,UA 5.0 5.0 - 8.0 KU MAIN [...] Acid, UA Specimen Urine Performing Organization Address [facility] Ph one Number MAIN LAB [address] [place] [address] * LIPID PROFILE (01/18/2020 3:40 AM CDT) [...] than 130 mg/dL. Specimen Performing Organization Address [facility] Ph one Number MAIN LAB [address] [place] [address] * MAGNESIUM (01/18/2020 3:40 AM CDT) Magnesium 2.1 1.6 - 2.6 mg/dL [facility] MAIN LAB Specimen Blood Performing Organization Address [facility] Ph one Number MAIN LAB [address] [place] [address] * COMPREHENSIVE METABOLIC PANEL (01/18/2020 3:40 AM [...] >60 >60 mL/min [facility] MAIN LAB Comment: [place] The eGFR is not validated f or use in drug dosing adjustments. Continue to use estimated creatinine clearance per dosing reference text. Please contact the Clinical Pharmacist for questions. eGFR >60 >60 mL/min [facility] MAIN LAB [place] Comment: The eGFR is not validated for use in drug dosing adjustments. Continue to use estimated creatinine clearance per dosing reference text. Please contact the Clinical Pharmacist for questions. Specimen Blood Performing Organization Address City/State/Zipcode Ph one Number [facility] MAIN LAB [address] [place] [address] * CBC AND DIFF (01/18/2020 3:40 AM [...] Count 408 (H) 150 - 400 K/UL [facility] MAIN LAB MPV 8.3 7 - 11 FL [facility] MAIN LAB Neutrophils 62 41 - 77 % [facility] MAIN LAB Lymphocytes 17 (L) 24 - 44 % MAIN LAB Monocytes 13 (H) 4 - 12 % MAIN LAB Eosinophils 8 (H) 0 - 5 % MAIN LAB Basophils 0 0 - 2 % MAIN LAB Absolute 6.30 1.8 - 7.0 K/UL MAIN LAB Neutrophil Count Absolute Lymph 1.79 1.0 - 4.8 K/UL MAIN LAB Count Absolute 1.31 (H) 0 - 0.80 K/UL MAIN LAB Monocyte Count Absolute 0.86 (H) 0 - 0.45 K/UL MAIN LAB Eosinophil Count Absolute 0.02 0 - 0.20 K/UL MAIN LAB Basophil Count Specimen Blood Performing Organization Address City/[facility] Ph one Number MAIN LAB [address] [place] [address] * TROPONIN-I (01/18/2020 2:05 AM CDT) Troponin-I 0.10 (H) 0.0 - 0.05 NG/ML MAIN LAB Specimen Blood Performing Organization Address [facility] Ph one Number MAIN LAB [address] [place] [address] * HEMOGLOBIN A1C (01/18/2020 12:17 AM CDT) Hemoglobin A1C 5.6 4.0 - 6.0 % MAIN LAB Comment: The ADA recommends that most patients with type 1 and type 2 diabetes maintain an A1c level <7%. Specimen Blood Performing Organization Address [facility] Ph one Number MAIN LAB [address] [place] [address] * TROPONIN-I (01/18/2020 12:00 AM CDT) Troponin-I 0.10 (H) 0.0 - 0.05 NG/ML MAIN LAB Specimen Blood Performing Organization Address [facility] Ph one Number MAIN LAB [address] [place] [address] * CHEST 2 VIEWS (01/17/2020 11:22 PM CDT) Specimen Impressions Performed At No acute cardiopulmonary process. RAD RESULTS Finalized by Kandi Plata M.D. on 7:02 AM. Dictated by Kandi Plata M.D. on 01/18/2020 7:00 AM. Narrative Performed At CHEST 2 VIEWS [facility] RAD RESULTS INDICATION: cardiac arrythmia. COMPARISON STUDY: 05/30/2019. FINDINGS: Lungs: The lung volume is normal. No fo ehma airspace disease. Pleura: No pleural effusion or [...] on 01/18/2020 7:00 AM. Performing Organization Address [facility] one Number KU RAD RESULTS * TSH WITH FREE T4 REFLEX (01/17/2020 10:50 PM CDT) TSH 4.61 0.35 - 5.00 MCU/ML [facility] MAIN LAB Specimen Blood Performing Organization Address [facility] one Number MAIN LAB [address] [place] [address] * TROPONIN-I (01/17/2020 10:50 PM CDT) Troponin-I 0.10 (H) 0.0 - 0.05 NG/ML [facility] MAIN LAB Specimen Blood Performing Organization Address [facility] Ph one Number MAIN LAB [address] [place] [address] * BNP (B-TYPE NATRIURETIC PEPTI) (01/17/2020 10:50 PM CDT) B Type 292.0 (H) 0 - 100 PG/ML [facility] MAIN LAB Natriuretic Peptide Specimen Blood Performing Organization Address [facility] one Number MAIN LAB [address] [place] [address] * PHOSPHORUS (01/17/2020 10:50 PM CDT) Phosphorus 3.2 2.0 - 4.5 MG/DL [facility] MAIN LAB Specimen Blood Performing Organization Address [facility] one Number [facility] MAIN LAB [address] [place] [address] * MAGNESIUM (01/17/2020 10:50 PM CDT) Magnesium 2.1 1.6 - 2.6 mg/dL [facility] MAIN LAB Specimen Blood Performing Organization Address [facility] one Number [facility] MAIN LAB [address] [place] [address] * COMPREHENSIVE METABOLIC PANEL (01/17/2020 10:50 PM [...] >60 >60 mL/min [facility] MAIN LAB Comment: [place] The eGFR is not validated f or use in drug dosing adjustments. Continue to use estimated creatinine clearance per dosing reference text. Please contact the Clinical Pharmacist for questions. eGFR >60 >60 mL/min [facility] MAIN LAB [place] Comment: The eGFR is not validated for use in drug dosing adjustments. Continue to use estimated creatinine clearance per dosing reference text. Please contact the Clinical Pharmacist for questions. Specimen Blood Performing Organization Address [facility] one Number [facility] MAIN LAB [address] [place] [address] * PTT (APTT) (01/17/2020 10:50 PM CDT) Pathologist [facility] APTT 31.0 24.0 - 36.5 SEC MAIN LAB Specimen Blood Performing Organization Address [facility] one Number MAIN LAB [address] [place] [address] * PROTIME INR (PT) (01/17/2020 10:50 PM CDT) Pathologist [facility] INR 1.0 0.8 - 1.2 MAIN LAB Specimen Blood Performing Organization Address [facility] one Number MAIN LAB [address] [place] [address] * CBC AND DIFF (01/17/2020 10:50 PM CDT) Pathologist [facility] White Blood 11.4 (H) 4.5 - 11.0 K/UL MAIN LAB Cells RBC 5.28 4.4 - 5.5 M/UL MAIN LAB Hemoglobin 14.8 13.5 - 16.5 GM/DL MAIN LAB Hematocrit 44.0 40 - 50 % MAIN LAB MCV 83.3 80 - 100 FL MAIN LAB MCH 28.0 26 - 34 PG MAIN LAB MCHC 33.6 32.0 - 36.0 G/DL MAIN LAB RDW 15.3 (H) 11 - 15 % [facility] MAIN LAB Platelet Count 431 (H) 150 - 400 K/UL MAIN LAB MPV 8.4 7 - 11 FL MAIN LAB Neutrophils 63 41 - 77 % MAIN LAB Lymphocytes 18 (L) 24 - 44 % MAIN LAB Monocytes 11 4 - 12 % MAIN LAB Eosinophils 7 (H) 0 - 5 % MAIN LAB Basophils 1 0 - 2 % MAIN LAB Absolute 7.29 (H) 1.8 - [...] Basophil Count Specimen Blood Performing Organization Address [facility] one Number [facility] MAIN LAB [address] [place] [address] * TELEMETRY STRIPS-SCAN (01/17/2020 12:00 AM CDT) [...] mg, Oral, EVERY 6 HOURS PRN, Starting Wed01/18/20 at 0033, Until Wed01/22/20 at 1420, Anxiety PO 0.5 mg Given [...] on eMAR (include date & time). Notify meteorological technician prior to giving next dose if: QTc increase by >15% or to >500 msec, or >550 msec in patients with ventricular conduction abnormalities or ventricular pacing. , - Two hours after all subsequent doses: record QTc on eMAR (include date & time). Notify meteorological technician prior to giving next dose if: QTc [...] dose (after last modification) on 01/21/20 at 2100, Until Discontinued, - Notify physician BEFORE initiating if baseline QTc >440 msec (500 msec in patients wit h ventricular conduction abnormalities). - Two hours after first dose: record QT c on eMAR (include date & time). Notify meteorological technician prior to giving next dose if: QTc increase by >15% or to >500 msec, or >550 msec in patients with ventricular conduction abnormalities or ventricular pacing. , - Two hours after all subsequent doses: record QTc on Sybil R (include date & time). Notify meteorological technician prior to giving next dose if: QTc [...] on eMAR (include date & time). Notify meteorological technician prior to giving next dose if: QTc increase by >15% or to >500 msec, or >550 msec in patients with ventricular conduction abnormalities or ventricular pacing. , - Two hours after all subsequent doses: record QTc on eMAR (include date & time). Notify meteorological technician prior to giving next dose if: QTc [...] on eMAR (include date & time). Notify meteorological technician prior to giving next dose if: QTc increase by >15% or to >500 msec, or >550 msec in patients with ventricular conduction abnormalities or ventricular pacing. , - Two hours after all subsequent doses: record QTc on Sybil R (include date & time). Notify meteorological technician prior to giving next dose if: QTc [...] mEq 40 mEq, Oral, ONCE, 1 dose, [facility] 01/18/20 at 0030 01/21/2020 8:15 AM CDT 40 mEq potassium chloride SR (K-DUR) tablet 40 Given mEq 40 mEq, Oral, ONCE, 1 dose, [place] 01/21/20 at 0630, - Tablet may be [...] THREE TIMES DAILY PRN, Starting Wed01/19/20 at 1950, Until 01/22/20 at 1420, Nausea/Vomiting PO, Other..., nausea/vomiting; prolonged QT c 01/19/2020 11:02 PM CDT 200 mg Deltoid, Left trimethobenzamide (TIGAN) injection 200 Given mg 200 mg, Intramuscular, EVERY 6 HOURS PRN, Starting Wed01/19/20 at 1950, Until Wed01/22/20 at 1420, Nausea/Vomiting Injectable 01/22/2020 8:43 AM CDT Leg, Lef t Verification of Patch Placement and Patch/Topica Integrity - Lidocaine 5% l Verified TWICE DAILY, First dose on 01/21/20 a t 0900, Until Discontinued, Patch checks are required every shift to ensure the patch is still intact and in place. Please verify patch check findings summer jara [facility] entry., Leg, Lower Left Patch/Topical Verified 01/21/2020 9:07 PM CDT Leg, Upper Left Patch/Topical Verified 01/21/2020 9:25 AM CDT documented in this encounter
--- OUTSIDE RECORDS SUMMARY | 2020-05-03 11:33 | XMS REPORT | Encounter Summary ---
Author Author [facility] Organization [facility] Address Unknown Phone Unavailable Care Team Providers Care Certified Pest Control Technician Name Role Phone Sherman Spicer MD Unavailable Reyna Bond Unavailable Unavailable Indiana Bauer APRN PCP Unavailable Encounter Details Care Team Description Date Type Department 01/17/2020 [facility] [address] [address] Social History Date Tobacco [...] stomach. 02/02/2020 vit A-vit Take 2 0 T-sehccm-xqzc-copper tablets by ([id number](VIT mouth daily. A,C-BIOTIN)) 2,500 unit-100 mg-2,500 mcg [...]
--- OUTSIDE RECORDS SUMMARY | 2020-05-03 11:41 | XMS REPORT ---
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 Active 66447302 Problem Mass of sinus R22.0 Active 927969 7 Problem Chronic pain syndrome G89.4 Active 43712121 Problem Posttraumatic stress disorder F43.10 Active 20018489 Problem Severe major depression with psychotic features F3 2.3 Active 31025148 Problem Gastroesophageal reflux disease, esophagitis pre sence not specified K21.9 Active 975639583 Problem Urinary hesitancy R39.11 Active 59 40988 Problem Elevated platelet count D47.3 Active 732888668 Problem Diverticulitis K57.92 Active 43860 6006 Problem Other chronic pain G89.29 Active 8 5122820 Problem Paroxysmal atrial fibrillation I48.0 Active 992575215 Problem Major depressive disorder, recurrent, moderate F33 .1 Active 71002139 Problem Chronic hepatitis C without hepatic coma B18.2 Active 766493570 Problem Sleep disorder G47.9 Active 12412 005 Problem Acquired hypothyroidism E03.9 Active 189802952 Problem Acute non-recurrent frontal sinusitis J01.10 Active 04566823 ALLERGIES No Information ENCOUNTERS Encounter Location Date Diagnosis [address] 340B [id number] [place] [address] Apr, [address] [id number], [place] [address] Apr, Paroxysmal atrial fibrillati on I48.0 ; Chronic pain syndrome G89.4 and Orthostatic hypotension I95.1 [facility] [address] [facility] [id number] [place] [address] Mar, [facility] [address] 340[address] [id number] [place] [address] Mar, [facility] JADIEL [address] 340[address] [id number] [place] [address] Mar, [facility] JADIEL ANDRADE [address] 340[address] [id number], [place] [address] Mar, [facility] [address] [id number] [place] [address] 18 Mar, 2020 Blood pressure check Z01.30 ; Counseled by nurse Z71.9 ; Dizziness R42 ; Headache R51 and Blurred vision H53.8 [facility] [address] 340B [id number] [place] [address] Mar, [facility] JADIEL [address] 340[address] [id number], [place] [address] Mar, Paroxysmal atrial fibrillati on I48.0 ; History of acute respiratory failure Z87.09 and History of sepsis Z86.19 [facility] JADIEL ANDRADE [address] 340[address] [id number], [place] [address] Mar, [facility] [address] [facility] [id number] [place] [address] Mar, [facility] JADIEL ANDRADE [address] 340[address] [id number], [place] [address] Mar, [facility] JADIEL [address] 340B [id number], [place] [address] Mar, Chronic pain syndrome G89.4 and Posttraumatic stress disorder F43.10 [facility] JADIEL [address] 340[address] [id number], [place] [address] Mar, [facility] [address] [facility] [id number] [place] [address] Mar, [facility] JADIEL [address] 340[address] [id number], [place] [address] Mar, [facility] JADIEL [address] 340B [id number] [place] [address] Mar, [facility] JADIEL [address] 340B [id number] [place] [address] Feb, [facility] JADIEL [address] 340B [id number] [place] [address] 17 Feb, 2020 Throat pain R07.0 [facility] JADIEL [address] 340B [id number] [place] [address] 11 Feb, 2020 Chronic pain syndrome G89.[address] 340B [id number], [place] [address] 10 Feb, 2020 Chronic pain syndrome G89.4 and Posttraumatic stress disorder F43.[address] 340B [id number], [place] [address] 08 Feb, 2020 Paroxysmal atrial fibrillati on I48.0 and Acquired hypothyroidism E03.9 [facility] [address] [facility] [id number] [address] [place] [address] Feb, [facility] [address] [facility] [id number] [address] [place] [address] 03 Feb, [address] 340B [id number] [place] [address] Feb, [facility] JADIEL [address] 340[address] [id number], [place] [address] January, [facility] JADIEL [address] 340B [id number], [place] [address] January, Acquired hypothyroidism E03. [address] 340B [id number], [place] [address] January, Mass of neck R22.1 ; Penile rash R21 and Paroxysmal atrial fibrillation I48.0 [facility] JADIEL [address] 340B [id number] [place] [address] January, [address] 340B [id number] [place] [address] 18 Jan, 2020 Mass of neck R22.1 ; Penile rash R21 and Paroxysmal atrial fibrillation I48.0 [facility] [address] 340 [id number] [place] [address] 16 Jan, 2020 [facility] [address] [facility] [id number] [place] [address] January, Chronic pain syndrome G89.4 and Posttraumatic stress disorder F43.[address] 340B [id number] [place] [address] January, Chronic pain syndrome G89.4 and Posttraumatic stress disorder F43.10 [facility] [address] 340 [id number] [place] [address] 15 Dec, 2019 Mouth pain K13.79 and Nausea R11.0 [facility] [address] 340 [id number] [place] [address] 15 Dec, [address] [place] [address] Dec, [address] 340B [id number], [place] [address] 14 Dec, 2019 Chronic pain syndrome G89.4 and Posttraumatic stress disorder F43.[address] 340B [id number] [place] [address] Dec, Chronic pain syndrome G89.4 and Posttraumatic stress disorder F43.[address] 340B [id number] [place] [address] Dec, [address] 340B [id number], [place] [address] 31 Nov, [address] 340B [id number], [place] [address] 19 Nov, 2019 Chronic pain syndrome G89.4 and Posttraumatic stress disorder F43.[address] 340B [id number], [place] [address] Nov, [facility] [address] [facility] [id number] [place] [id number] Oct, [facility] [address] [facility] [id number] [address] [place] [id number] Oct, [facility] [address] [place] [address] Oct, Caries K02.9 [facility] [address] [id number] [place] [address] Oct, [address] 340B [id number], [place] [address] 18 Oct, 2019 Chronic pain syndrome G89.4 and Posttraumatic stress disorder F43.[address] 340B [id number], [place] [address] Oct, [address] 340B [id number], [place] [address] 14 Oct, 2019 Chronic pain syndrome G89.4 and Posttraumatic stress disorder F43.10 [facility] [address] [facility] [id number] [address] [place] [address] [id number] 05 Oct, [address] 340B [id number], [place] [address] Sep, Epigastric abdominal pain R1 0.13 ; Diverticulitis K57.92 and Viral upper respiratory tract infection J06.[address] 340B [id number], [place] [address] Sep, Posttraumatic stress disorde r F43.[address] 340B [id number], [place] [address] Sep, Chronic pain syndrome G89.4 and Posttraumatic stress disorder F43.[address] 340B [id number], [place] [address] Sep, [facility] [address] [facility] [id number] [address] [address] Sep, [address] 340 [id number], [place] [address] Sep, [address] 340B [id number], [place] [address] Sep, Dental abscess K04.7 ; Histo ry of atrial flutter Z86.79 and Neck pain M54.[address] 340 [id number], [place] [address] Sep, Acquired hypothyroidism E03. [address] [id number], [place] [address] Sep, [facility] [address] [place] [address] Aug, 201 9 Posttraumatic stress disorder F43.10 and Chronic pain syndrome G89.[address] [id number], [place] [address] Aug, Chronic pain syndrome G89.4 and Dental caries K02.[address] [id number], [place] [address] Aug, [address] 340 [id number], [place] [address] Jul, Sleep disorder G47.9 [facility] [address] [id number] [place] [id number] Jul, Caries K02.[address] 340 [id number], [place] [address] Jun, Low back pain M54.5 and Othe r chronic pain G89.[address] 340B [id number], [place] [address] Jun, [address] 340B [id number], [place] [address] Jun, Sleep disorder G47.[address] 340 [id number] [place] [address] Jun, Sleep disorder G47.[address] 340 [id number], [place] [address] Jun, Lightheadedness R42 and Rawlins al abscess K04.7 [facility] [address] [id number] [place] [id number] Jun, Dental examination Z01.20 an d Caries K02.[address] 340 [id number], [place] [address] Jun, [address] [id number], [place] [address] Jun, Encounter for immunization Z [address] [id number], [place] [address] Jun, Dental abscess K04.[address] pain, unspecified type R07.[address] 340 [id number], [place] [address] Jun, Encounter for immunization Z [address] [id number], [place] [address] May, Sleep disorder G47.[address] [id number], [place] [address] May, Chronic pain syndrome G89.[address] [id number], [place] [address] 16 May, 2019 History of atrial flutter Z8 6.79 ; Chronic pain syndrome G89.4 and Acquired hypothyroidism E03.[address] 340 [id number], [place] [address] May, [address] [id number], [place] [address] May, Nausea R11.0 and Lightheaded ness R42 [address] [id number], [place] [address] May, Sleep disorder G47.9 [facility] [address] 340 [id number] [place] [address] Apr, Acute non-recurrent frontal sinusitis J01.10 and Tick bite, initial encounter W57.XXXA [facility] [address] 340B [id number] [place] [address] Apr, Sleep disorder G47.9 [facility] [address] 340B [id number] [place] [address] Mar, Sleep disorder G47.9 [facility] [address] 340 [id number] [place] [address] Mar, [facility] [address] 340B [id number] [place] [address] Mar, [facility] [address] 340B [id number] [place] [address] Feb, History of atrial flutter Z8 6.79 and Muscle cramping R25.2 [facility] [address] 340B [id number] [place] [address] Feb, [facility] [address] 340B [id number] [place] [address] Feb, [facility] [address] 340B [id number] [place] [address] Feb, Cellulitis of left upper ext remity L03.114 and Sleep disorder G47.9 [facility] [address] 340B [id number] [place] [address] Feb, Muscle cramping R25.2 [facility] [address] 340B [id number] [place] [address] January, Chronic pain syndrome G89.4 [facility] [address] 340B [id number] [place] [address] January, [facility] [address] 340B [id number] [place] [address] January, Chronic pain syndrome G89.4 ; Dizziness R42 ; Acquired hypothyroidism E03.9 ; Low back pain M54.5 ; Pulmonary embolism without acute cor pulmonale, unspecified chronicity, unspecified pulmonary embolism type I26.99 and Sleep disorder G47.9 [facility] JADIEL ANDRADE [address] 340B [id number] [place] [address] January, [address] 340B [id number] [place] [address] January, [facility] [address] [id number] [address] [place] [address] Sep, Chronic pain syndrome G89.4 [facility] [address] [id number] [address] [place] [address] Sep, [facility] [address] [id number] [address] [place] [address] Sep, [facility] [address] [id number] [address] [place] [address] Sep, [facility] [address] [id number] [address] [place] [address] Sep, [facility] [address] [facility] [id number] [address] [place] [address] Sep, [facility] [address] [id number] [address] [place] [address] Sep, [facility] [address] [id number] [address] [place] [address] Aug, [facility] [address] [facility] [id number] [address] [place] [address] Aug, Portal vein thrombosis I81 ; Chronic pain syndrome G89.4 ; Other acute pulmonary embolism without acute cor pulmonale I26.99 and Chronic hepatitis C without hepatic coma B18.2 [facility] [address] [id number] [address] [place] [address] Aug, [facility] [address] [id number] [address] [place] [address] Aug, [facility] [address] [place] [id number] [address] [place] [address] Jul, Major depressive disorder, r ecurrent, moderate F33.1 and Posttraumatic stress disorder F43.10 [place] [address] [facility] [id number] [address] [place] [address] Jul, Gastroesophageal reflux dise ase, esophagitis presence not specified K21.9 [facility] [address] [place] [id number] [address] [place] [address] Jun, [place] [address] [place] [id number] [address] [place] [address] Jun, [place] [address] [address] Jun, Posttraumatic stress disorde r F43.10 and Severe major depression with psychotic features F32.3 [place] [address] [place] [id number] [address] [place] [address] Apr, [place] [address] [place] [id number] [address] [place] [address] Apr, Mass of sinus R22.0 ; Athero sclerotic heart disease of [place] coronary artery with unspecified angina pectoris I25.119 and Elevated platelet count D47.3 [place] [address] [place] [id number] [address] [place] [address] Apr, Severe major depression with psychotic features F32.3 and Posttraumatic stress disorder F43.10 [facility] [address] [place] [id number] [address] [place] [address] January, [place] [address] [place] [id number] [address] [place] [address] January, Posttraumatic stress disorde r F43.10 and Severe major depression with psychotic features F32.3 [facility] [address] [facility] [id number] [address] [place] [address] Dec, Atherosclerotic heart diseas e of [place] coronary artery with unspecified angina pectoris I25.119 and Elevated platelet count D47.3 [facility] [address] [facility] [id number] [address] [place] [address] Dec, [place] [address] [facility] [id number] [address] [place] [address] Dec, Low energy R53.83 ; Atherosc lerotic heart disease of [place] coronary artery with unspecified angina pectoris I25.119 ; Gastroesophageal reflux disease, esophagitis presence not specified K21.9 and Urinary hesitancy R39.11 [place] [address] [facility] [id number] [address] [place] [address] Dec, Posttraumatic stress disorde r F43.10 and Severe major depression with psychotic features F32.3 [place] [address] [facility] [id number] [address] [place] [address] Oct, [place] [address] [facility] [id number] [address] [place] [address] Sep, Mass of sinus R22.0 [place] [address] [facility] [id number] [address] [place] [address] Sep, Dysuria R30.0 ; Low back avi n M54.5 ; Other chronic pain G89.29 ; Poor nutrition E63.9 ; Gastroesophageal reflux disease, esophagitis presence not specified K21.9 and Mass of sinus R22.0 [place] [address] [facility] [id number] [address] [place] [address] Sep, Posttraumatic stress disorde r F43.10 and Severe major depression with psychotic features F32.3 [facility] [address] [facility] [id number] [address] [place] [address] Sep, [place] [address] [facility] [id number] [address] [place] [address] Aug, [facility] [address] [id number] [address] [place] [address] Aug, Encounter for immunization Z 23 [facility] [address] [id number] [address] [place] [address] Jul, Posttraumatic stress disorde r F43.10 ; Severe major depression with psychotic features F32.3 and Major depressive disorder, recurrent, moderate F33.1 [facility] [address] [id number] [address] [place] [address] Jun, [facility] [address] [id number] [address] [place] [address] Jun, [facility] [address] [id number] [address] [place] [address] May, [facility] [address] [id number] [address] [place] [address] Apr, [facility] [address] [id number] [address] [place] [address] Apr, Posttraumatic stress disorde r F43.10 and Severe major depression with psychotic features F32.3 [facility] [address] [id number] [address] [place] [address] Mar, [facility] [address] [id number] [address] [place] [address] Feb, [facility] [address] [id number] [address] [place] [address] January, [facility] [address] [id number] [address] [place] [address] January, Posttraumatic stress disorde r F43.10 and Severe major depression with psychotic features F32.3 [facility] [address] [id number] [address] [place] [address] Dec, [facility] [address] [id number] [address] [place] [address] Nov, [facility] [address] [facility] [id number] [address] [place] [address] Nov, [facility] [address] [facility] [id number] [address] [place] [address] Oct, Posttraumatic stress disorde r F43.10 and Severe major depression with psychotic features F32.3 [facility] [address] [facility] [id number] [address] [place] [address] Sep, Encounter for immunization Z 23 ; Posttraumatic stress disorder F43.10 and Severe major depression with psychotic features F32.3 [facility] [address] [facility] [id number] [address] [place] [address] Aug, [facility] [address] [facility] [id number] [address] [place] [address] Aug, [facility] [address] [place] [id number] [address] [place] [address] Jul, Encounter for immunization Z 23 ; Posttraumatic stress disorder F43.10 and Severe major depression with psychotic features F32.3 [facility] [address] [place] [id number] [address] [place] [address] Jun, [facility] [address] [place] [id number] [address] [place] [address] Jun, Mass of sinus R22.0 ; Low ba ck pain M54.5 and Paroxysmal atrial fibrillation I48.0 [facility] [address] [place] [id number] [address] [place] [address] May, [facility] [address] [facility] [id number] [address] [place] [address] Apr, Posttraumatic stress disorde r 309.81 and Major depressive disorder, recurrent episode, moderate 296.32 [facility] [address] [facility] [id number] [address] [place] [address] Apr, [facility] [address] [place] [id number] [address] [place] [address] Mar, Major depressive disorder, r ecurrent episode, moderate 296.32 and Posttraumatic stress disorder 309.81 [facility] [address] [id number] [address] [place] [address] Feb, [facility] [address] [id number] [address] [place] [address] Feb, [facility] [address] [id number] [address] [place] [address] January, [facility] [address] [id number] [address] [place] [address] January, [facility] [address] [id number] [address] [place] [id number] January, [facility] [address] [id number] [address] [place] [id number] Dec, [facility] [address] [id number] [address] [place] [id number] Dec, [facility] [address] [id number] [address] [place] [id number] Nov, [facility] [address] [id number] [address] [place] [id number] Nov, [facility] [address] [id number] [address] [place] [id number] Nov, [facility] [address] [id number] [address] [place] [id number] Nov, [facility] [address] [id number] [address] [place] [id number] Nov, [facility] [address] [id number] [address] [place] [id number] Nov, [facility] [address] [id number] [address] [place] [id number] Nov, [facility] [address] [id number] [address] [place] [id number] Nov, [facility] [address] [id number] [address] [place] [address], [place] [id number] Oct, 2014 [facility] [address] [id number] [address] [place] [address], [place] [id number] Oct, 2014 [facility] [address] [id number] [address] [place] [address], [place] [id number] 16 Oct, 2014 [facility] [address] [id number] [address] [place] [address], [place] [id number] 16 Oct, 2014 [facility] [address] [id number] [address] [place] [address], [place] [id number] Oct, 2014 [facility] [address] [id number] [address] [place] [address], [place] [address] Oct, 2014 [facility] [address] [id number] [address] [place] [address], [place] [address] Oct, 2014 [facility] [address] [id number] [address] [place] [address] Oct, 2014 [facility] [address] [id number] [address] [place] [address], [place] [address] Oct, 2014 [facility] [address] [id number] [address] [place] [address], [place] [address] Oct, 2014 [facility] [address] [id number] [address] [place] [address], [place] [address] Oct, 2014 [facility] [address] [id number] [address] [place] [address] Oct, 2014 [facility] [address] [id number] [address] [place] [address], [place] [address] Oct, 2014 [facility] [address] [id number] [address] [place] [address], [place] [address] Oct, 2014 [facility] [address] [id number] [address] [place] [address], [place] [address] Oct, 2014 [facility] [address] [id number] [address] [place] [address], [place] [address] Oct, [facility] [address] [id number] [address] [place] [address], [place] [address] Sep, [facility] [address] [id number] [address] [place] [address], [place] [address] Sep, [facility] [address] [id number] [address] [place] [address], [place] [address] Sep, [facility] [address] [id number] [address] [place] [address], [place] [address] Sep, [facility] [address] [id number] [address] [place] [address], [place] [address] Aug, [facility] [address] [id number] [address] [place] [address], [place] [address] Aug, [facility] [address] [id number] [address] [place] [address], [place] [address] Aug, [facility] [address] [id number] [address] [place] [address], [place] [address] Aug, [facility] [address] [id number] [address] [place] [address], [place] [address] Aug, [facility] [address] [id number] [address] [place] [address], [place] [address] Aug, [facility] [address] [id number] [address] [place] [address], [place] [address] Aug, [facility] [address] [id number] [address] [place] [address], [place] [address] Aug, [facility] [address] [id number] [address] [place] [address], [place] [address] Aug, [facility] [address] [id number] [address] [place] [address], [place] [address] Aug, [facility] [address] [id number] [address] [place] [address], [place] [address] Aug, [facility] [address] [id number] [address] [place] [address], [place] [address] Aug, [facility] [address] [id number] [address] [place] [address], [place] [address] Aug, [facility] [address] [id number] [address] [place] [address], [place] [address] Aug, [facility] [address] [id number] [address] [place] [address], [place] [address] Aug, [facility] [address] [id number] [address] [place] [address], [place] [address] Aug, [facility] [address] [id number] [address] [place] [address], [place] [address] Jul, [facility] [address] [id number] [address] [place] [address], [place] [address] Jul, [facility] [address] [id number] [address] [place] [address], [place] [address] Jul, [facility] [address] [id number] [address] [place] [address], [place] [address] Jul, [facility] [address] [id number] [address] [place] [address], [place] [address] Jul, [facility] [address] [id number] [address] [place] [address], [place] [address] Jul, [facility] [address] [id number] [address] [place] [address] Jun, [facility] [address] [id number] [address] [place] [address], [place] [address] Jun, [facility] [address] [id number] [address] [place] [address], [place] [address] Jun, [facility] [address] [id number] [address] [place] [address] Jun, [facility] [address] [id number] [address] [place] [address] Jun, [facility] [address] [id number] [address] [place] [address], [place] [address] Jun, 2013 [facility] [address] [id number] [address] [place] [address] Jun, [facility] [address] [id number] [address] [place] [address], [place] [address] Jun, [facility] [address] [id number] [address] [place] [address], [place] [address] Jun, 2013 [facility] [address] [id number] [address] [place] [address], [place] [address] Jun, [facility] [address] [id number] [address] [place] [address], [place] [address] Jun, [facility] [address] [id number] [address] [place] [address], [place] [address] Jun, [facility] [address] [id number] [address] [place] [address], [place] [address] Jun, [facility] [address] [id number] [address] [place] [address] Jun, [facility] [address] [id number] [address] [place] [address], [place] [address] 16 May, 2013 [facility] [address] [id number] [address] [place] [address] 16 May, 2013 [facility] [address] [id number] [address] [place] [address] 16 May, 2013 [facility] [address] [id number] [address] [place] [address] 16 May, 2014 [facility] [address] [id number] [address] [place] [address] Apr, [facility] [address] [id number] [address] [place] [address], [place] [address] Apr, [facility] [address] [id number] [address] [place] [address], [place] [address] Apr, [facility] [address] [id number] [address] [place] [address], [place] [address] Apr, [facility] [address] [id number] [address] [place] [address], [place] [address] Mar, [facility] [address] [id number] [address] [place] [address], [place] [address] Mar, [facility] [address] [id number] [address] [place] [address], [place] [address] Mar, [facility] [address] [id number] [address] [place] [address], [place] [address] Mar, [facility] [address] [id number] [address] [place] [address], [place] [address] Mar, [facility] [address] [id number] [address] [place] [address], [place] [address] Mar, [facility] [address] [id number] [address] [place] [address], [place] [address] Mar, [facility] [address] [id number] [address] [place] [address], [place] [address] Mar, [facility] [address] [id number] [address] [place] [address], [place] [address] Mar, [facility] [address] [id number] [address] [place] [address], [place] [address] Mar, [facility] [address] [id number] [address] [place] [address], [place] [address] Mar, [facility] [address] [id number] [address] [place] [address], [place] [address] Mar, [facility] [address] [id number] [address] [place]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
--- OUTSIDE RECORDS SUMMARY | 2020-05-03 11:41 | XMS REPORT ---
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 Active 12760754 Problem Mass of sinus R22.0 Active 595012 7 Problem Chronic pain syndrome G89.4 Active 13874680 Problem Posttraumatic stress disorder F43.10 Active 02980296 Problem Severe major depression with psychotic features F3 2.3 Active 61876325 Problem Gastroesophageal reflux disease, esophagitis pre sence not specified K21.9 Active 031662466 Problem Urinary hesitancy R39.11 Active 59 70689 Problem Elevated platelet count D47.3 Active 423989329 Problem Diverticulitis K57.92 Active 84320 6006 Problem Other chronic pain G89.29 Active 8 4964619 Problem Paroxysmal atrial fibrillation I48.0 Active 989058771 Problem Major depressive disorder, recurrent, moderate F33 .1 Active 39748776 Problem Chronic hepatitis C without hepatic coma B18.2 Active 410815227 Problem Sleep disorder G47.9 Active 95778 005 Problem Acquired hypothyroidism E03.9 Active 296276450 Problem Acute non-recurrent frontal sinusitis J01.10 Active 93054704 ALLERGIES No Information ENCOUNTERS Encounter Location Date Diagnosis [facility] [address] [facility] [id number] [address] [place] [address] Mar, [address] 340B [id number] [place] [address] Mar, [address] 340B [id number] [place] [address] Mar, [address] 340B [id number] [place] [address] Mar, [facility] [address] 340 [id number] [place] [address] 18 Mar, 2020 Blood pressure check Z01.30 ; Counseled by nurse Z71.9 ; Dizziness R42 ; Headache R51 and Blurred vision H53.8 [facility] [address] 340B [id number] [place] [address] 16 Mar, [address] 340B [id number] [place] [address] Mar, Paroxysmal atrial fibrillati on I48.0 ; History of acute respiratory failure Z87.09 and History of sepsis Z86.19 [facility] [address] 340B [id number] [place] [address] 13 Mar, 2020 [facility] [address] [facility] [id number] [address] [place] [address] Mar, [facility] [address] 340B [id number] [address] Mar, [address] 340B [id number] [place] [address] Mar, Chronic pain syndrome G89.4 and Posttraumatic stress disorder F43.[address] 340B [id number] [place] [address] Mar, [facility] [address] [facility] [id number] [address] [place] [address] Mar, [facility] [address] 340B [id number] [place] [address] Mar, [address] 340B [id number] [place] [address] Mar, [address] 340B [id number] [address] Feb, [address] 340B [id number] [place] [address] 17 Feb, 2020 Throat pain R07.0 [facility] [address] 340B [id number] [place] [address] 11 Feb, 2020 Chronic pain syndrome G89.4 [facility] [address] 340B [id number] [place] [address] 10 Feb, 2020 Chronic pain syndrome G89.4 and Posttraumatic stress disorder F43.10 [facility] [address] 340B [id number] [place] [address] 08 Feb, 2020 Paroxysmal atrial fibrillati on I48.0 and Acquired hypothyroidism E03.9 [facility] [address] [facility] [id number] [place] [address] 04 Feb, 2020 [facility] [address] [facility] [id number] [place] [address] 03 Feb, 2020 [facility] [address] 340B [id number] [place] [address] Feb, [facility] [address] 340B [id number] [place] [address] January, [facility] [address] 340B [id number] [place] [address] January, Acquired hypothyroidism E03. 9 [facility] [address] 340B [id number] [place] [address] January, Mass of neck R22.1 ; Penile rash R21 and Paroxysmal atrial fibrillation I48.0 [facility] [address] 340B [id number] [place] [address] January, [facility] [address] 340B [id number] [place] [address] January, Mass of neck R22.1 ; Penile rash R21 and Paroxysmal atrial fibrillation I48.[address] [address] 340 [id number] [place] [address] January, [facility] [address] [id number] [address] [address] January, Chronic pain syndrome G89.4 and Posttraumatic stress disorder F43.10 [address] [id number] [place] [address] 12 Jan, 2020 Chronic pain syndrome G89.4 and Posttraumatic stress disorder F43.10 [facility] [address] 340 [id number] [place] [address] 15 Dec, 2019 Mouth pain K13.79 and Nausea R11.0 [facility] [address] 340 [id number] [place] [address] 15 Dec, [address] [place] [address] 15 Dec, [address] 340B [id number] [place] [address] 14 Dec, 2019 Chronic pain syndrome G89.4 and Posttraumatic stress disorder F43.10 [address] [id number] [place] [address] Dec, Chronic pain syndrome G89.4 and Posttraumatic stress disorder F43.[address] 340B [id number] [place] [address] Dec, [address] 340B [id number] [place] [address] 31 Nov, [address] 340[address] [id number] [place] [address] Nov, Chronic pain syndrome G89.4 and Posttraumatic stress disorder F43.10 [address] [id number] [place] [address] Nov, [facility] [address] [id number] [address] [place] [id number] Oct, [facility] [address] [id number] [address] [place] [id number] Oct, [facility] [address] [place] [address] 19 Oct, 2019 Caries K02.9 [facility] [address] [id number] [address] [place] [address] 18 Oct, [address] 340B [id number] [place] [address] 18 Oct, 2019 Chronic pain syndrome G89.4 and Posttraumatic stress disorder F43.[address] 340B [id number] [place] [address] 18 Oct, [address] 340B [id number] [place] [address] 14 Oct, 2019 Chronic pain syndrome G89.4 and Posttraumatic stress disorder F43.10 [facility] [address] [id number] [address] [place] [id number] 05 Oct, [address] 340B [id number] [place] [address] Sep, Epigastric abdominal pain R1 0.13 ; Diverticulitis K57.92 and Viral upper respiratory tract infection J06.[address] 340B [id number] [place] [address] Sep, Posttraumatic stress disorde r F43.[address] 340B [id number] [place] [address] Sep, Chronic pain syndrome G89.4 and Posttraumatic stress disorder F43.[address] 340B [id number] [place] [address] 15 Sep, 2019 [facility] [address] [id number] [address] [place] [address] Sep, [address] 340B [id number] [place] [address] Sep, [address] 340B [id number] [place] [address] Sep, Dental abscess K04.7 ; Histo ry of atrial flutter Z86.79 and Neck pain M54.[address] 340B [id number] [place] [address] Sep, Acquired hypothyroidism E03. [address] 340B [id number] [place] [address] Sep, [facility] [place] [address] [place] [address] Aug, 201 9 Posttraumatic stress disorder F43.10 and Chronic pain syndrome G89.[address] 340B [id number] [place] [address] Aug, Chronic pain syndrome G89.4 and Dental caries K02.[address] 340B [id number] [place] [address] Aug, [address] 340 [id number] [place] [address] Jul, Sleep disorder G47.9 [facility] [address] [id number] [address] [place] [id number] Jul, Caries K02.[address] 340B [id number] [place] [address] Jun, Low back pain M54.5 and Othe r chronic pain G89.[address] 340B [id number] [place] [address] Jun, [address] 340B [id number] [place] [address] Jun, Sleep disorder G47.[address] 340B [id number] [place] [address] Jun, Sleep disorder G47.[address] 340B [id number] [place] [address] Jun, Lightheadedness R42 and [place] abscess K04.7 [facility] [address] [id number] [address] [place] [id number] Jun, Dental examination Z01.20 an d Caries K02.9 [facility] [address] 340B [id number] [place] [address] Jun, [address] 340B [id number] [place] [address] Jun, Encounter for immunization Z 23 [facility] [address] 340B [id number] [place] [address] Jun, Dental abscess K04.[address] pain, unspecified type R07.[address] 340B [id number] [place] [address] Jun, Encounter for immunization Z [address] 340B [id number] [place] [address] May, Sleep disorder G47.9 [facility] [address] 340B [id number] [place] [address] May, Chronic pain syndrome G89.4 [facility] [address] 340 [id number] [place] [address] 16 May, 2019 History of atrial flutter Z8 6.79 ; Chronic pain syndrome G89.4 and Acquired hypothyroidism E03.9 [facility] [address] [id number] [place] [address] May, [facility] [address] 340 [id number] [place] [address] May, Nausea R11.0 and Lightheaded ness R42 [facility] [address] 340 [id number] [place] [address] May, Sleep disorder G47.9 [facility] [address] 340 [id number] [place] [address] Apr, Acute non-recurrent frontal sinusitis J01.10 and Tick bite, initial encounter W57.XXXA [facility] [address] 340B [id number] [place] [address] Apr, Sleep disorder G47.9 [facility] [address] 340B [id number] [place] [address] Mar, Sleep disorder G47.9 [facility] [address] 340 [id number] [place] [address] Mar, [facility] [address] 340B [id number] [place] [address] Mar, [facility] [address] 340B [id number] [place] [address] Feb, History of atrial flutter Z8 6.79 and Muscle cramping R25.[address] [facility] [address] 340B [id number] [place] [address] Feb, [facility] [address] 340B [id number] [place] [address] Feb, [facility] [address] 340B [id number] [place] [address] Feb, Cellulitis of left upper ext remity L03.114 and Sleep disorder G47.[address] [facility] [facility] [address] 340B [id number] [place] [address] Feb, Muscle cramping R25.[address] [facility] [address] 340B [id number] [place] [address] January, Chronic pain syndrome G89.[address] [facility] [address] 340B [id number] [place] [address] January, [facility] [address] 340B [id number] [place] [address] January, Chronic pain syndrome G89.4 ; Dizziness R42 ; Acquired hypothyroidism E03.9 ; Low back pain M54.5 ; Pulmonary embolism without acute cor pulmonale, unspecified chronicity, unspecified pulmonary embolism type I26.99 and Sleep disorder G47.9 [facility] [address] [facility] 340B [id number] [place] [address] January, [facility] [address] [facility] 340B [id number] [place] [address] January, [facility] [address] [id number] [address] [place] [address] Sep, Chronic pain syndrome G89.4 [facility] [address] [id number] [address] [place] [address] Sep, [facility] [address] [id number] [address] [place] [address] Sep, [facility] [address] [id number] [address] [place] [address] Sep, [facility] [address] [id number] [address] [place] [address] Sep, [facility] [address] [id number] [address] [place] [address] Sep, [facility] [address] [id number] [address] [place] [address] Sep, [facility] [address] [id number] [address] [place] [address] Aug, [facility] [address] [id number] [address] [place] [address] Aug, Portal vein thrombosis I81 ; Chronic pain syndrome G89.4 ; Other acute pulmonary embolism without acute cor pulmonale I26.99 and Chronic hepatitis C without hepatic coma B18.2 [facility] [address] [id number] [address] [place] [address] Aug, [facility] [address] [id number] [address] [place] [address] Aug, [facility] [address] [id number] [address] [place] [address] Jul, Major depressive disorder, r ecurrent, moderate F33.1 and Posttraumatic stress disorder F43.10 [place] [address] [id number] [address] [place] [address] Jul, Gastroesophageal reflux dise ase, esophagitis presence not specified K21.9 [facility] [address] [id number] [address] [place] [address] Jun, [place] [address] [facility] [id number] [address] [place] [address] Jun, [place] [address] [id number] [address] [place] [address] Jun, Posttraumatic stress disorde r F43.10 and Severe major depression with psychotic features F32.3 [place] [address] [facility] [id number] [address] [place] [address] Apr, [place] [address] [facility] [id number] [address] [place] [address] Apr, Mass of sinus R22.0 ; Athero sclerotic heart disease of [place] coronary artery with unspecified angina pectoris I25.119 and Elevated platelet count D47.3 [place] [address] [facility] [id number] [address] [place] [address] Apr, Severe major depression with psychotic features F32.3 and Posttraumatic stress disorder F43.10 [place] [address] [facility] [id number] [address] [place] [address] January, [place] [address] [facility] [id number] [address] [place] [address] January, Posttraumatic stress disorde r F43.10 and Severe major depression with psychotic features F32.3 [place] [address] [facility] [id number] [address] [place] [address] Dec, Atherosclerotic heart diseas e of [place] coronary artery with unspecified angina pectoris I25.119 and Elevated platelet count D47.3 [place] [address] [facility] [id number] [address] [place] [address] Dec, [facility] [address] [facility] [id number] [address] [place] [address] Dec, Low energy R53.83 ; Atherosc lerotic heart disease of [place] coronary artery with unspecified angina pectoris I25.119 ; Gastroesophageal reflux disease, esophagitis presence not specified K21.9 and Urinary hesitancy R39.11 [place] [address] [facility] [id number] [address] [place] [address] Dec, Posttraumatic stress disorde r F43.10 and Severe major depression with psychotic features F32.3 [place] [address] [facility] [id number] [address] [place] [address] Oct, [place] [address] [place] [id number] [place] [address] Sep, Mass of sinus R22.0 [place] [address] [place] [id number] [place] [address] Sep, Dysuria R30.0 ; Low back avi n M54.5 ; Other chronic pain G89.29 ; Poor nutrition E63.9 ; Gastroesophageal reflux disease, esophagitis presence not specified K21.9 and Mass of sinus R22.0 [place] [address] [facility] [id number] [address] [place] [address] Sep, Posttraumatic stress disorde r F43.10 and Severe major depression with psychotic features F32.3 [place] [address] [place] [id number] [address] [place] [address] Sep, [place] [address] [facility] [id number] [address] [place] [address] Aug, [place] [address] [place] [id number] [place] [address] Aug, Encounter for immunization Z 23 [place] [address] [facility] [id number] [address] [place] [address] Jul, Posttraumatic stress disorde r F43.10 ; Severe major depression with psychotic features F32.3 and Major depressive disorder, recurrent, moderate F33.1 [facility] [address] [id number] [address] [place] [address] Jun, [facility] [address] [id number] [address] [place] [address] Jun, [facility] [address] [id number] [address] [place] [address] May, [facility] [address] [id number] [address] [place] [address] Apr, [facility] [address] [id number] [address] [place] [address] Apr, Posttraumatic stress disorde r F43.10 and Severe major depression with psychotic features F32.3 [facility] [address] [id number] [address] [place] [address] Mar, [facility] [address] [id number] [address] [place] [address] Feb, [facility] [address] [id number] [address] [place] [address] January, [facility] [address] [id number] [address] [place] [address] January, Posttraumatic stress disorde r F43.10 and Severe major depression with psychotic features F32.3 [facility] [address] [id number] [address] [place] [address] Dec, [facility] [address] [id number] [address] [place] [address] Nov, [facility] [address] [id number] [address] [place] [address] Nov, [facility] [address] [id number] [address] [place] [address] Oct, Posttraumatic stress disorde r F43.10 and Severe major depression with psychotic features F32.3 [facility] [address] [place] [id number] [address] [place] [address] Sep, Encounter for immunization Z 23 ; Posttraumatic stress disorder F43.10 and Severe major depression with psychotic features F32.3 [facility] [address] [place] [id number] [address] [place] [address] Aug, [facility] [address] [place] [id number] [place] [address] Aug, [facility] [address] [address] Jul, Encounter for immunization Z 23 ; Posttraumatic stress disorder F43.10 and Severe major depression with psychotic features F32.3 [facility] [address] [address] Jun, [facility] [address] [address] Jun, Mass of sinus R22.0 ; Low ba ck pain M54.5 and Paroxysmal atrial fibrillation I48.0 [facility] [address] [address] May, [facility] [address] [address] Apr, Posttraumatic stress disorde r 309.81 and Major depressive disorder, recurrent episode, moderate 296.32 [facility] [address] [address] Apr, [facility] [address] [address] Mar, Major depressive disorder, r ecurrent episode, moderate 296.32 and Posttraumatic stress disorder 309.81 [facility] [address] [place] [id number] [place] [address] Feb, [facility] [address] [place] [id number] [place] [address] Feb, [facility] [address] [id number] [address] [place] [address], [place] [address] January, [facility] [address] [id number] [address] [place] [address], [place] [address] January, [facility] [address] [id number] [address] [place] [address], [place] [address] January, [facility] [address] [id number] [address] [place] [address], [place] [address] Dec, [facility] [address] [id number] [address] [place] [address], [place] [address] Dec, [facility] [address] [id number] [address] [place] [address], [place] [address] Nov, [facility] [address] [id number] [address] [place] [address], [place] [address] Nov, [facility] [address] [id number] [address] [place] [address], [place] [address] Nov, [facility] [address] [id number] [address] [place] [address], [place] [address] Nov, [facility] [address] [id number] [address] [place] [address], [place] [address] Nov, [facility] [address] [id number] [address] [place] [address], [place] [address] Nov, [facility] [address] [id number] [address] [place] [address], [place] [address] Nov, [facility] [address] [id number] [address] [place] [address], [place] [address] Nov, [facility] [address] [id number] [address] [place] [address], [place] [address] Oct, [facility] [address] [id number] [address] [place] [address], [place] [address] Oct, [facility] [address] [id number] [address] [place] [address], [place] [address] 16 Oct, 2014 [facility] [address] [id number] [address] [place] [address], [place] [address] Oct, 2014 [facility] [address] [id number] [address] [place] [address], [place] [address] Oct, 2014 [facility] [address] [id number] [address] [place] [address], [place] [address] Oct, 2014 [facility] [address] [id number] [address] [place] [address], [place] [address] Oct, 2014 [facility] [address] [id number] [address] [place] [address], [place] [address] Oct, 2014 [facility] [address] [id number] [address] [place] [address], [place] [address] Oct, 2014 [facility] [address] [id number] [address] [place] [address], [place] [address] Oct, 2014 [facility] [address] [id number] [address] [place] [address], [place] [address] Oct, 2014 [facility] [address] [id number] [address] [place] [address], [place] [address] Oct, 2014 [facility] [address] [id number] [address] [place] [address], [place] [address] Oct, 2014 [facility] [address] [id number] [address] [place] [address], [place] [address] Oct, 2014 [facility] [address] [id number] [address] [place] [address], [place] [address] Oct, 2014 [facility] [address] [id number] [address] [place] [address], [place] [address] Oct, 2014 [facility] [address] [id number] [address] [place] [address], [place] [address] Sep, [facility] [address] [id number] [address] [place] [address], [place] [address] Sep, [facility] [address] [id number] [address] [place] [address], [place] [address] Sep, [facility] [address] [id number] [address] [place] [address], [place] [address] Sep, [facility] [address] [id number] [address] [place] [address], [place] [address] Aug, [facility] [address] [id number] [address] [place] [address], [place] [address] Aug, [facility] [address] [id number] [address] [place] [address], [place] [address] Aug, [facility] [address] [id number] [address] [place] [address], [place] [address] Aug, [facility] [address] [id number] [address] [place] [address], [place] [address] Aug, [facility] [address] [id number] [address] [place] [address], [place] [address] Aug, [facility] [address] [id number] [address] [place] [address], [place] [address] Aug, [facility] [address] [id number] [address] [place] [address], [place] [address] Aug, [facility] [address] [id number] [address] [place] [address], [place] [address] Aug, [facility] [address] [id number] [address] [place] [address], [place] [address] Aug, [facility] [address] [id number] [address] [place] [address], [place] [address] Aug, [facility] [address] [id number] [address] [place] [address], [place] [address] Aug, [facility] [address] [id number] [address] [place] [address], [place] [address] Aug, [facility] [address] [id number] [address] [place] [address], [place] [address] Aug, [facility] [address] [id number] [address] [place] [address], [place] [address] Aug, [facility] [address] [id number] [address] [place] [address], [place] [address] Aug, [facility] [address] [id number] [address] [place] [address], [place] [address] Jul, [facility] [address] [id number] [address] [place] [address], [place] [address] Jul, [facility] [address] [id number] [address] [place] [address], [place] [address] Jul, [facility] [address] [id number] [address] [place] [address], [place] [address] Jul, [facility] [address] [id number] [address] [place] [address], [place] [address] Jul, [facility] [address] [id number] [address] [place] [address], [place] [address] Jul, [facility] [address] [id number] [address] [place] [address], [place] [address] Jun, [facility] [address] [id number] [address] [place] [address], [place] [address] Jun, [facility] [address] [id number] [address] [place] [address] Jun, [facility] [address] [id number] [address] [place] [id number] Jun, [facility] [address] [id number] [address] [place] [address], [place] [address] Jun, [facility] [address] [id number] [address] [place] [id number] Jun, [facility] [address] [id number] [address] [place] [address], [place] [address] Jun, [facility] [address] [id number] [address] [place] [address], [place] [address] Jun, [facility] [address] [id number] [address] [place] [address], [place] [address] Jun, [facility] [address] [id number] [address] [place] [address], [place] [address] Jun, [facility] [address] [id number] [address] [place] [address], [place] [address] Jun, [facility] [address] [id number] [address] [place] [address], [place] [address] Jun, [facility] [address] [id number] [address] [place] [address], [place] [address] Jun, [facility] [address] [id number] [address] [place] [address], [place] [address] Jun, [facility] [address] [id number] [address] [place] [address], [place] [address] May, [facility] [address] [id number] [address] [place] [address], [place] [address] May, [facility] [address] [id number] [address] [place] [address], [place] [address] May, [facility] [address] [id number] [address] [place] [address], [place] [address] May, [facility] [address] [id number] [address] [place] [address], [place] [address] Apr, [facility] [address] [id number] [address] [place] [address], [place] [address] Apr, [facility] [address] [id number] [address] [place] [address], [place] [address] Apr, [facility] [address] [id number] [address] [place] [address], [place] [address] Apr, [facility] [address] [id number] [address] [place] [address], [place] [address] Mar, [facility] [address] [id number] [address] [place] [address], [place] [address] Mar, 2013 [facility] [address] [id number] [address] [place] [address], [place] [address] Mar, [facility] [address] [id number] [address] [place] [address], [place] [address] Mar, [facility] [address] [id number] [address] [place] [address], [place] [address] Mar, [facility] [address] [id number] [address] [place] [address], [place] [address] Mar, [facility] [address] [id number] [address] [place] [address], [place] [address] Mar, [facility] [address] [id number] [address] [place] [address], [place] [address] Mar, 2013 [facility] [address] [id number] [address] [place] [address], [place] [address] Mar, [facility] [address] [id number] [address] [place] [address], [place] [address] Mar, [facility] [address] [id number] [address] [place] [address], [place] [address] Mar, [facility] [address] [id number] [address] [place] [address], [place] [address] Mar, [facility] [address] [id number] [address] [place] [address], [place] [address] Feb, [facility] [address] [id number] [address] [place] [address], [place] [address] Feb, [facility] [address] [id number] [address] [place] [address], [place] [address] Feb, [facility] [address] [id number] [address] [place] [address], [place] [address] Feb, [facility] [address]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
--- OUTSIDE RECORDS SUMMARY | 2020-05-03 11:41 | XMS REPORT ---
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 Active 89148313 Problem Mass of sinus R22.0 Active 523967 7 Problem Chronic pain syndrome G89.4 Active 79073296 Problem Posttraumatic stress disorder F43.10 Active 89418079 Problem Severe major depression with psychotic features F3 2.3 Active 31832231 Problem Gastroesophageal reflux disease, esophagitis pre sence not specified K21.9 Active 981992196 Problem Urinary hesitancy R39.11 Active 59 28489 Problem Elevated platelet count D47.3 Active 164714138 Problem Diverticulitis K57.92 Active 26736 6006 Problem Other chronic pain G89.29 Active 8 0107727 Problem Paroxysmal atrial fibrillation I48.0 Active 236675929 Problem Major depressive disorder, recurrent, moderate F33 .1 Active 53612928 Problem Chronic hepatitis C without hepatic coma B18.2 Active 914052442 Problem Sleep disorder G47.9 Active 71103 005 Problem Acquired hypothyroidism E03.9 Active 820211731 Problem Acute non-recurrent frontal sinusitis J01.10 Active 10587284 ALLERGIES No Information ENCOUNTERS Encounter Location Date Diagnosis [address] 340[address] [id number] [place] [address] 07 Apr, 2020 Posttraumatic stress disorde r F43.10 and Chronic pain syndrome G89.[address] 340[address] [id number] [place] [address] 07 Apr, 2020 Paroxysmal atrial fibrillati on I48.0 ; Chronic pain syndrome G89.4 and Orthostatic hypotension I95.1 [facility] [address] [facility] [id number] [place] [address] 31 Mar, 2020 [facility] JADIEL [address] 340[address] [id number], [place] [address] Mar, [address] 340[address] [id number] [place] [address] Mar, [address] 340[address] [id number], [place] [address] Mar, [facility] [address] [id number] [place] [address] 18 Mar, 2020 Blood pressure check Z01.30 ; Counseled by nurse Z71.9 ; Dizziness R42 ; Headache R51 and Blurred vision H53.8 [facility] JADIEL [address] 340B [id number], [place] [address] Mar, [address] 340B [id number], [place] [address] Mar, Paroxysmal atrial fibrillati on I48.0 ; History of acute respiratory failure Z87.09 and History of sepsis Z86.19 [facility] JADIEL [address] 340[address] [id number], [place] [address] Mar, [facility] [address] [facility] [id number] [place] [address] Mar, [facility] JADIEL [address] 340B [id number], [place] [address] Mar, [address] 340B [id number], [place] [address] Mar, Chronic pain syndrome G89.4 and Posttraumatic stress disorder F43.[address] 340B [id number], [place] [address] Mar, [facility] [address] [facility] [id number] [place] [address] 08 Mar, [address] [id number] [place] [address] 08 Mar, 2020 [facility] JADIEL ANDRADE [address] 340[address] [id number] [place] [address] 07 Mar, 2020 [facility] JADIEL ANDRADE [address] [id number] [place] [address] 22 Feb, 2020 [facility] JADIEL [address] 340B [id number] [place] [address] 17 Feb, 2020 Throat pain R07.0 [facility] JADIEL [address] 340B [id number] [place] [address] 11 Feb, 2020 Chronic pain syndrome G89.4 [facility] JADIEL [address] 340B [id number], [place] [address] 10 Feb, 2020 Chronic pain syndrome G89.4 and Posttraumatic stress disorder F43.10 [facility] JADIEL [address] 340B [id number] [place] [address] 08 Feb, 2020 Paroxysmal atrial fibrillati on I48.0 and Acquired hypothyroidism E03.9 [facility] [address] [facility] [id number] [address] [place] [address] Feb, [facility] [address] [facility] [id number] [address] [place] [address] 03 Feb, 2020 [facility] JADIEL [address] 340B [id number] [place] [address] Feb, [facility] JADIEL [address] 340B [id number] [place] [address] January, [facility] JADIEL [address] 340B [id number], [place] [address] January, Acquired hypothyroidism E03. 9 [facility] JADIEL [address] 340B [id number] [place] [address] January, Mass of neck R22.1 ; Penile rash R21 and Paroxysmal atrial fibrillation I48.0 [facility] JADIEL ANDRADE [address] 340B [id number], [place] [address] January, [facility] JADIEL [address] 340B [id number] [place] [address] 18 Jan, 2020 Mass of neck R22.1 ; Penile rash R21 and Paroxysmal atrial fibrillation I48.0 [facility] [address] 340 [id number] [place] [address] 16 Jan, 2020 [facility] [address] [facility] [id number] 100[place] [address] January, Chronic pain syndrome G89.4 and Posttraumatic stress disorder F43.[address] 340B [id number] [place] [address] January, Chronic pain syndrome G89.4 and Posttraumatic stress disorder F43.10 [facility] [address] 340 [id number] [place] [address] 15 Dec, 2019 Mouth pain K13.79 and Nausea R11.0 [facility] [address] 340 [id number] [place] [address] 15 Dec, [address] [place] [address] 15 Dec, [address] 340B [id number] [place] [address] 14 Dec, 2019 Chronic pain syndrome G89.4 and Posttraumatic stress disorder F43.[address] 340B [id number], [place] [address] 13 Dec, 2019 Chronic pain syndrome G89.4 and Posttraumatic stress disorder F43.[address] 340B [id number] [place] [address] Dec, [address] 340B [id number], [place] [address] 31 Nov, [address] 340B [id number] [place] [address] 19 Nov, 2019 Chronic pain syndrome G89.4 and Posttraumatic stress disorder F43.10 [address] [id number] [place] [address] Nov, [facility] [address] [id number] [place] [id number] Oct, [facility] [address] [id number] [place] [id number] Oct, [facility] [address] [place] [address] Oct, Caries K02.9 [facility] [address] [id number] 100[place] [address] Oct, [address] [id number], [place] [address] Oct, Chronic pain syndrome G89.4 and Posttraumatic stress disorder F43.[address] 340B [id number], [place] [address] Oct, [address] [id number], [place] [address] 14 Oct, 2019 Chronic pain syndrome G89.4 and Posttraumatic stress disorder F43.10 [facility] [address] [id number] [place] [id number] 05 Oct, [address] 340B [id number] [place] [address] Sep, Epigastric abdominal pain R1 0.13 ; Diverticulitis K57.92 and Viral upper respiratory tract infection J06.[address] 340B [id number], [place] [address] Sep, Posttraumatic stress disorde r F43.10 [address] [id number], [place] [address] Sep, Chronic pain syndrome G89.4 and Posttraumatic stress disorder F43.[address] 340B [id number], [place] [address] Sep, [facility] [address] [id number] 100[place] [address] Sep, [address] 340B [id number], [place] [address] Sep, [address] 340B [id number], [place] [address] Sep, Dental abscess K04.7 ; Histo ry of atrial flutter Z86.79 and Neck pain M54.[address] 340B [id number], [place] [address] Sep, Acquired hypothyroidism E03. [address] 340 [id number], [place] [address] Sep, [facility] [address] [place] [address] Aug, 201 9 Posttraumatic stress disorder F43.10 and Chronic pain syndrome G89.[address] 340 [id number], [place] [address] Aug, Chronic pain syndrome G89.4 and Dental caries K02.[address] 340B [id number], [place] [address] Aug, [address] 340B [id number], [place] [address] Jul, Sleep disorder G47.9 [facility] [address] [id number] [place] [id number] Jul, Caries K02.[address] 340B [id number], [place] [address] Jun, Low back pain M54.5 and Othe r chronic pain G89.[address] 340B [id number], [place] [address] Jun, [address] 340B [id number], [place] [address] Jun, Sleep disorder G47.[address] 340B [id number] [place] [address] Jun, Sleep disorder G47.[address] 340B [id number] [place] [address] Jun, Lightheadedness R42 and Mcpherson al abscess K04.7 [facility] [address] [id number] [place] [id number] Jun, Dental examination Z01.20 an d Caries K02.[address] 340B [id number], [place] [address] Jun, [address] 340B [id number], [place] [address] Jun, Encounter for immunization Z [address] 340B [id number], [place] [address] Jun, Dental abscess K04.[address] pain, unspecified type R07.[address] 340B [id number], [place] [address] Jun, Encounter for immunization Z [address] 340B [id number], [place] [address] May, Sleep disorder G47.[address] 340B [id number], [place] [address] May, Chronic pain syndrome G89.[address] 340B [id number], [place] [address] 16 May, 2019 History of atrial flutter Z8 6.79 ; Chronic pain syndrome G89.4 and Acquired hypothyroidism E03.[address] 340B [id number] [place] [address] May, [address] 340B [id number] [place] [address] May, Nausea R11.0 and Lightheaded ness R42 [facility] [address] 340B [id number] [place] [address] May, Sleep disorder G47.9 [facility] [address] [id number] [place] [address] Apr, Acute non-recurrent frontal sinusitis J01.10 and Tick bite, initial encounter W57.XXXA [facility] [address] 340B [id number] [place] [address] Apr, Sleep disorder G47.9 [facility] [address] 340B [id number] [place] [address] Mar, Sleep disorder G47.9 [facility] [address] 340 [id number] [place] [address] Mar, [facility] JADIEL [address] 340B [id number] [place] [address] Mar, [facility] [address] 340B [id number] [place] [address] Feb, History of atrial flutter Z8 6.79 and Muscle cramping R25.2 [facility] [address] 340B [id number] [place] [address] Feb, [facility] [address] 340[address] [id number] [place] [address] Feb, [facility] [address] 340B [id number], [place] [address] Feb, Cellulitis of left upper ext remity L03.114 and Sleep disorder G47.9 [facility] [address] 340B [id number], [place] [address] Feb, Muscle cramping R25.2 [facility] [address] 340B [id number] [place] [address] January, Chronic pain syndrome G89.4 [facility] [address] 340B [id number], [place] [address] January, [facility] JADIEL ANDRADE [address] 340B [id number] [place] [address] January, Chronic pain syndrome G89.4 ; Dizziness R42 ; Acquired hypothyroidism E03.9 ; Low back pain M54.5 ; Pulmonary embolism without acute cor pulmonale, unspecified chronicity, unspecified pulmonary embolism type I26.99 and Sleep disorder G47.9 [facility] JAIDEL ANDRADE [address] 340B [id number] [place] [address] January, [facility] JADIEL ANDRADE [address] 340B [id number] [place] [address] January, [facility] [address] [facility] [id number] [address] [place] [address] Sep, Chronic pain syndrome G89.4 [facility] [address] [facility] [id number] [address] [place] [address] Sep, [facility] [address] [id number] [address] [place] [address] Sep, [facility] [address] [facility] [id number] [address] [place] [address] Sep, [facility] [address] [facility] [id number] [address] [place] [address] Sep, [facility] [address] [facility] [id number] [address] [place] [address] Sep, [facility] [address] [facility] [id number] [address] [place] [address] Sep, [facility] [address] [facility] [id number] [address] [place] [address] Aug, [facility] [address] [facility] [id number] [address] [place] [address] Aug, Portal vein thrombosis I81 ; Chronic pain syndrome G89.4 ; Other acute pulmonary embolism without acute cor pulmonale I26.99 and Chronic hepatitis C without hepatic coma B18.2 [facility] [address] [id number] [address] [place] [address] 13 Aug, 2017 [facility] [address] [facility] [id number] [address] [place] [address] Aug, [facility] [address] [facility] [id number] [address] [place] [address] Jul, Major depressive disorder, r ecurrent, moderate F33.1 and Posttraumatic stress disorder F43.10 [facility] [address] [facility] [id number] [address] [place] [address] Jul, Gastroesophageal reflux dise ase, esophagitis presence not specified K21.9 [place] [address] [facility] [id number] [address] [place] [address] Jun, [place] [address] [place] [id number] [address] [place] [address] Jun, [facility] [address] [place] [id number] [address] [place] [address] Jun, Posttraumatic stress disorde r F43.10 and Severe major depression with psychotic features F32.3 [place] [address] [facility] [id number] [address] [place] [address] Apr, [facility] [address] [facility] [id number] [address] [place] [address] Apr, Mass of sinus R22.0 ; Athero sclerotic heart disease of [place] coronary artery with unspecified angina pectoris I25.119 and Elevated platelet count D47.3 [facility] [address] [facility] [id number] [address] [place] [address] Apr, Severe major depression with psychotic features F32.3 and Posttraumatic stress disorder F43.10 [facility] [address] [facility] [id number] [address] [place] [address] January, [facility] [address] [facility] [id number] [address] [place] [address] January, Posttraumatic stress disorde r F43.10 and Severe major depression with psychotic features F32.3 [place] [address] [id number] [address] [place] [address] Dec, 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 pectoris I25.119 and Elevated platelet count D47.3 [facility] [address] [id number] [address] [place] [address] Dec, [place] [address] [id number] [address] [place] [address] Dec, Low energy R53.83 ; Atherosc lerotic heart disease of [place] coronary artery with unspecified angina pectoris I25.119 ; Gastroesophageal reflux disease, esophagitis presence not specified K21.9 and Urinary hesitancy R39.11 [place] [address] [facility] [id number] [address] [place] [address] Dec, Posttraumatic stress disorde r F43.10 and Severe major depression with psychotic features F32.3 [place] [address] [id number] [address] [place] [address] Oct, [place] [address] [id number] [address] [place] [address] Sep, Mass of sinus R22.0 [place] [address] [facility] [id number] [address] [place] [address] Sep, Dysuria R30.0 ; Low back avi n M54.5 ; Other chronic pain G89.29 ; Poor nutrition E63.9 ; Gastroesophageal reflux disease, esophagitis presence not specified K21.9 and Mass of sinus R22.0 [place] [address] [id number] [address] [place] [address] Sep, Posttraumatic stress disorde r F43.10 and Severe major depression with psychotic features F32.3 [place] [address] [facility] [id number] [address] [place] [address] Sep, [place] [address] [id number] [address] [place] [address] Aug, [facility] [address] [id number] [address] [place] [address] Aug, Encounter for immunization Z 23 [facility] [address] [id number] [address] [place] [address] Jul, Posttraumatic stress disorde r F43.10 ; Severe major depression with psychotic features F32.3 and Major depressive disorder, recurrent, moderate F33.1 [facility] [address] [id number] [address] [place] [address] Jun, [facility] [address] [id number] [address] [place] [address] Jun, [facility] [address] [id number] [address] [place] [address] May, [facility] [address] [id number] [address] [place] [address] Apr, [facility] [address] [id number] [address] [place] [address] Apr, Posttraumatic stress disorde r F43.10 and Severe major depression with psychotic features F32.3 [facility] [address] [id number] [address] [place] [address] Mar, [facility] [address] [id number] [address] [place] [address] Feb, [facility] [address] [id number] [address] [place] [address] January, [facility] [address] [id number] [address] [place] [address] January, Posttraumatic stress disorde r F43.10 and Severe major depression with psychotic features F32.3 [facility] [address] [id number] [address] [place] [address] Dec, [facility] [address] [id number] [address] [place] [address] Nov, [facility] [address] [facility] [id number] [address] [place] [address] Nov, [facility] [address] [facility] [id number] [address] [place] [address] Oct, Posttraumatic stress disorde r F43.10 and Severe major depression with psychotic features F32.3 [facility] [address] [facility] [id number] [address] [place] [address] Sep, Encounter for immunization Z 23 ; Posttraumatic stress disorder F43.10 and Severe major depression with psychotic features F32.3 [facility] [address] [facility] [id number] [address] [place] [address] Aug, [facility] [address] [facility] [id number] [address] [place] [address] Aug, [facility] [address] [place] [id number] [address] [place] [address] Jul, Encounter for immunization Z 23 ; Posttraumatic stress disorder F43.10 and Severe major depression with psychotic features F32.3 [facility] [address] [facility] [id number] [address] [place] [address] Jun, [facility] [address] [facility] [id number] [address] [place] [address] Jun, Mass of sinus R22.0 ; Low ba ck pain M54.5 and Paroxysmal atrial fibrillation I48.0 [facility] [address] [facility] [id number] [address] [place] [address] May, [facility] [address] [facility] [id number] [address] [place] [address] Apr, Posttraumatic stress disorde r 309.81 and Major depressive disorder, recurrent episode, moderate 296.32 [facility] [address] [facility] [id number] [address] [place] [address] Apr, [facility] [address] [place] [id number] [address] [place] [address] Mar, Major depressive disorder, r ecurrent episode, moderate 296.32 and Posttraumatic stress disorder 309.81 [facility] [address] [id number] [address] [place] [address] Feb, [facility] [address] [id number] [address] [place] [id number] Feb, [facility] [address] [id number] [address] [place] [phone] January, [facility] [address] [id number] [address] [place] [id number] January, [facility] [address] [id number] [address] [place] [id number] January, [facility] [address] [id number] [address] [place] [id number] Dec, [facility] [address] [id number] [address] [place] [id number] Dec, [facility] [address] [id number] [address] [place] [id number] Nov, [facility] [address] [id number] [address] [place] [phone] Nov, [facility] [address] [id number] [address] [place] [id number] Nov, [facility] [address] [id number] [address] [place] [phone] Nov, [facility] [address] [id number] [address] [place] [id number] Nov, [facility] [address] [id number] [address] [place] [id number] Nov, [facility] [address] [address] [id number] [address] [place] [address] Nov, [facility] [address] [id number] [address] [place] [address] Nov, [facility] [address] [id number] [address] [place] [address], [place] [address] Oct, 2014 [facility] [address] [id number] [address] [place] [address], [place] [address] Oct, 2014 [facility] [address] [id number] [address] [place] [address], [place] [address] Oct, 2014 [facility] [address] [id number] [address] [place] [address], [place] [address] Oct, 2014 [facility] [address] [id number] [address] [place] [address], [place] [address] Oct, 2014 [facility] [address] [id number] [address] [place] [address], [place] [address] Oct, 2014 [facility] [address] [id number] [address] [place] [address], [place] [address] Oct, 2014 [facility] [address] [id number] [address] [place] [address], [place] [address] Oct, 2014 [facility] [address] [id number] [address] [place] [address], [place] [address] Oct, 2014 [facility] [address] [id number] [address] [place] [address], [place] [address] Oct, 2014 [facility] [address] [id number] [address] [place] [address], [place] [address] Oct, 2014 [facility] [address] [id number] [address] [place] [address], [place] [address] Oct, 2014 [facility] [address] [id number] [address] [place] [address], [place] [address] Oct, 2014 [facility] [address] [id number] [address] [place] [address], [place] [address] Oct, 2014 [facility] [address] [id number] [address] [place] [address], [place] [address] Oct, [facility] [address] [id number] [address] [place] [address], [place] [address] Oct, [facility] [address] [id number] [address] [place] [address], [place] [address] Sep, [facility] [address] [id number] [address] [place] [address], [place] [address] Sep, [facility] [address] [id number] [address] [place] [address], [place] [address] Sep, [facility] [address] [id number] [address] [place] [address], [place] [address] Sep, [facility] [address] [id number] [address] [place] [address], [place] [address] Aug, [facility] [address] [id number] [address] [place] [address], [place] [address] Aug, [facility] [address] [id number] [address] [place] [address], [place] [address] Aug, [facility] [address] [id number] [address] [place] [address], [place] [address] Aug, [facility] [address] [id number] [address] [place] [address], [place] [address] Aug, [facility] [address] [id number] [address] [place] [address], [place] [address] Aug, [facility] [address] [id number] [address] [place] [address], [place] [address] Aug, [facility] [address] [id number] [address] [place] [address], [place] [address] Aug, [facility] [address] [id number] [address] [place] [address], [place] [address] Aug, [facility] [address] [id number] [address] [place] [address], [place] [address] Aug, [facility] [address] [id number] [address] [place] [address], [place] [address] Aug, [facility] [address] [id number] [address] [place] [address], [place] [address] Aug, [facility] [address] [id number] [address] [place] [address], [place] [address] Aug, [facility] [address] [id number] [address] [place] [address], [place] [address] Aug, [facility] [address] [id number] [address] [place] [address], [place] [address] Aug, [facility] [address] [id number] [address] [place] [address], [place] [address] Aug, [facility] [address] [id number] [address] [place] [address], [place] [address] Jul, [facility] [address] [id number] [address] [place] [address], [place] [address] Jul, [facility] [address] [id number] [address] [place] [address], [place] [address] Jul, [facility] [address] [id number] [address] [place] [address], [place] [address] Jul, [facility] [address] [id number] [address] [place] [address], [place] [address] Jul, [facility] [address] [id number] [address] [place] [address], [place] [address] Jul, [facility] [address] [id number] [address] [place] [address], [place] [address] Jun, [facility] [address] [id number] [address] [place] [address], [place] [address] Jun, [facility] [address] [id number] [address] [place] [address], [place] [address] Jun, [facility] [address] [id number] [address] [place] [address], [place] [address] Jun, [facility] [address] [id number] [address] [place] [address], [place] [address] Jun, 2013 [facility] [address] [id number] [address] [place] [address], [place] [address] Jun, 2013 [facility] [address] [id number] [address] [place] [address], [place] [address] Jun, 2013 [facility] [address] [id number] [address] [place] [address], [place] [address] Jun, [facility] [address] [id number] [address] [place] [address], [place] [address] Jun, [facility] [address] [id number] [address] [place] [address], [place] [address] Jun, [facility] [address] [id number] [address] [place] [address], [place] [address] Jun, [facility] [address] [id number] [address] [place] [address], [place] [address] Jun, [facility] [address] [id number] [address] [place] [address], [place] [address] Jun, [facility] [address] [id number] [address] [place] [address], [place] [address] Jun, [facility] [address] [id number] [address] [place] [address], [place] [address] 16 May, 2013 [facility] [address] [id number] [address] [place] [address], [place] [address] 16 May, 2013 [facility] [address] [id number] [address] [place] [address], [place] [address] 16 May, 2013 [facility] [address] [id number] [address] [place] [address], [place] [address] 16 May, 2013 [facility] [address] [id number] [address] [place] [address], [place] [address] Apr, [facility] [address] [id number] [address] [place] [address], [place] [address] Apr, [facility] [address] [id number] [facility] [place] [address] Apr, [facility] [address] [id number] [address] [place] [address], [place] [address] Apr, [facility] [address] [id number] [address] [place] [address], [place] [address] Mar, [facility] [address] [id number] [address] [place] [address], [place] [address] Mar, [facility] [address] [id number] [address] [place] [address], [place] [address] Mar, [facility] [address] [id number] [address] [place] [address], [place] [address] Mar, [facility] [address] [id number] [address] [place] [address], [place] [address] Mar, [facility] [address] [id number] [address] [place] [address], [place] [address] Mar, [facility] [address] [id number] [address] [place] [address], [place] [address] Mar, [facility] [address] [id number] [address]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
--- OUTSIDE RECORDS SUMMARY | 2020-05-03 12:07 | XMS REPORT | Continuity of Care Document ---
Demographics Preferred Language Unknown Marital Status Unknown Jew Affiliation Unknown Race Unknown Ethnic Group Unknown [...] N/A 11/20/2014 Yes No Known Drug Allergies [id number] Drug Allergy Unknown N/A 11/24/2018 Yes No Known Drug Allergies [id number] Drug Allergy Unknown N/A 03/01/2019 Yes IV [...] ROGERS, BRENNEN ZAMORANO 784.0 headache 04/26/2008 MICHELE OUTSEWER, BRENNEN ZAMORANO 784.0 headache 04/26/2008 VIRGEN DO, [...] DO, SHERRON K 784.0 headache 04/26/2008 BEVERLEY ASSIGNMENT CLERK, OLIVIA M 784.0 headache 04/26/2008 VIRGEN DO, SHERRON K 784.0 headache 04/26/2008 VIRGEN DO, SHERRON K 784.0 headache 04/26/2008 BEVERLEY ASSIGNMENT CLERK, OLIVIA M 784.0 headache 04/26/2008 VIRGEN DO, SHERRON K 784.0 headache 06/09/2008 266.2 B12 DEF W/O ANEMIA 06/09/2008 RYNE ROGERS BRENNEN ZAMORANO 266.2 B12 DEF W/O ANEMIA 06/09/2008 266.2 B12 DEF W/O ANEMIA 06/09/2008 RYNE ROGERS BRENNEN JAUN 266.2 B12 DEF W/O ANEMIA 06/09/2008 RYNE ROGERS BRENNEN ZAMORANO 266.2 B12 DEF W/O ANEMIA 06/09/2008 MICHELE OUTSEWER BRENNEN ZAMORANO 266.2 B12 DEF W/O ANEMIA 06/09/2008 VIRGEN DO, SHERRON K 266.2 B12 DEF W/O ANEMIA 06/09/2008 RYAN HALL APRN 266 .2 B12 DEF W/O ANEMIA 06/09/2008 VIRGEN DO, SHERRON K 266.2 B12 DEF W/O ANEMIA 06/09/2008 VRIGEN DO, SHERRON K 266.2 B12 DEF W/O [...] SUE BRENNEN ZAMORANO 536.8 Dyspepsia 07/04/2008 MICHELE OUTSEWER, BRENNEN JAUN 285.9 ANEMIA 07/04/2008 MICHELE OUTSEWER, BRENNEN JAUN 536.8 Dyspepsia 07/04/2008 MICHELE OUTSEWER, BRENNEN JAUN 285.9 ANEMIA 07/04/2008 MICHELE OUTSEWER, BRENNEN JAUN 536.8 Dyspepsia 07/04/2008 VIRGEN DO, SHERRON K 285.9 ANEMIA 07/04/2008 VIRGEN DO, SHERRON K 536.8 Dyspepsia 07/04/2008 MADL OUTSEWER, RYAN L 285 .9 ANEMIA 07/04/2008 MADL OUTSEWER, RYAN L 536 .8 Dyspepsia 07/04/2008 VIGREN DO, SHERRON K 285.9 ANEMIA 07/04/2008 VIRGEN [...] 07/04/2008 OLIVIA AUGUSTINE 285.9 ANEMIA 07/04/2008 BEVERLEY ASSIGNMENT CLERK, OLIVIA M 536.8 Dyspepsia 07/04/2008 VIRGEN DO, [...] BRENNEN JAUN 528.9 Mouth Pain 09/04/2008 MICHELE OUTSEWER, BRENNEN JAUN 528.9 Mouth Pain 09/04/2008 MICHELE OUTSEWER, BRENNEN JAUN 528.9 Mouth Pain 09/04/2008 VIRGEN [...] fee ling tired or poorly 01/23/2009 MICHELE OUTSEWER, BRENNEN ZAMORANO 302.72 MALE ERECTILE DISORDER 01/23/2009 MICHELE OUTSEWER, BRENNEN ZAMORANO 780.79 feeling tired or poorly 01/23/2009 302.72 MAL E ERECTILE DISORDER 01/23/2009 780.79 fee ling tired or poorly 01/23/2009 MICHELE OUTSEWER, BRENNEN ZAMORANO 302.72 MALE ERECTILE DISORDER 01/23/2009 MICHLEE OUTSEWER, BRENNEN ZAMORANO 780.79 feeling tired or poorly 01/23/2009 MICHELE OUTSEWER, BRENNEN ZAMORANO 302.72 MALE ERECTILE DISORDER 01/23/2009 MICHELE OUTSEWER BRENNEN ZAMORANO 780.79 feeling tired or poorly 01/23/2009 MICHELE OUTSEWER, BRENNEN ZAMORANO 302.72 MALE ERECTILE DISORDER 01/23/2009 MICHELE OUTSEWER, BRENNEN ZAMORANO 780.79 feeling tired or poorly 01/23/2009 VIRGEN DO, SHERRON K 302.72 MALE ERECTILE DISORDER 01/23/2009 VIRGEN DO, SHERRON K 780.79 feeling tired or poorly 01/23/2009 MADL OUTSEWER, RYAN L 302 .72 MALE ERECTILE DISORDER 01/23/2009 MADL OUTSEWER, RYAN L 780 .79 feeling tired or [...] feeling tired or poorly 01/23/2009 VIRGEN DO, SHERRNO K 302.72 MALE ERECTILE DISORDER 01/23/2009 VIRGEN [...] K 789.00 Abdominal Pain 03/06/2009 VIRGEN DO, SHERRNO K 789.00 Abdominal Pain 03/06/2009 VIRGEN DO, [...] SUE BRENNEN ZAMORANO 307.40 INSOMNIA 06/13/2009 MICHELE OUTSEWER, BRENNEN ZAMORANO V04.81 FLU SHOT 06/13/2009 307.40 INS OMNIA 06/13/2009 V04.81 FLU SHOT 06/13/2009 MICHELE OUTSEWER, BRENNEN ZAMORANO 307.40 INSOMNIA 06/13/2009 MICHELE OUTSEWER, BRENNEN ZAMORANO V04.81 FLU SHOT 06/13/2009 MICHELE OUTSEWER, BRENNEN ZAMORANO 307.40 INSOMNIA 06/13/2009 MICHELE OUTSEWER, BRENNEN ZAMORANO V04.81 FLU SHOT 06/13/2009 MICHELE OUTSEWER, BRENNEN ZAMORANO 307.40 INSOMNIA 06/13/2009 MICHELE OUTSEWER, BRENNEN ZAMORANO V04.81 FLU SHOT 06/13/2009 VIRGEN DO, SHERRON K 307.40 INSOMNIA 06/13/2009 VIRGEN DO, SHERRON K V04.81 FLU SHOT 06/13/2009 MADL OUTSEWER, RYAN L 307 .40 INSOMNIA 06/13/2009 MADL OUTSEWER, RYAN L V04 .81 FLU SHOT 06/13/2009 [...] SHERRON K V04.81 FLU SHOT 06/13/2009 OLIVIA AUGUSITNE M 307.40 INSOMNIA 06/13/2009 BEVERLEY ASSIGNMENT CLERKOLIVIA V04.81 FLU SHOT 06/13/2009 VIRGEN DO, SHERRON K 307.40 INSOMNIA 06/13/2009 VIRGEN DO, SHERRON K V04.81 FLU SHOT 09/11/2009 728.85 Mus jose Spasm 09/11/2009 847.9 Spra in Back 09/11/2009 MICHELE OUTSEWER, BRENNEN LEPEH 728.85 Muscle Spasm 09/11/2009 MICHELE OUTSEWER, BRENNEN ZAMORANO 847.9 Sprain Back 09/11/2009 728.85 Mus jose Spasm 09/11/2009 847.9 Spra in Back 09/11/2009 MICHELE OUTSEWER, BRENNEN LEPEH 728.85 Muscle Spasm 09/11/2009 MICHELE OUTSEWER, BRENNEN ZAMORANO 847.9 Sprain Back 09/11/2009 MICHELE OUTSEWER, BRENNEN LEPEH 728.85 Muscle Spasm 09/11/2009 MICHELE OUTSEWER, BRENNEN LEPEH 847.9 Sprain Back 09/11/2009 MICHELE OUTSEWER, BRENNEN LEPEH 728.85 Muscle Spasm 09/11/2009 MICHELE OUTSEWER, BRENNEN ZAMORANO 847.9 Sprain Back 09/11/2009 VIRGEN DO, SHERRON K 728.85 Muscle Spasm 09/11/2009 VIRGEN DO, SHERRON K 847.9 Sprain Back 09/11/2009 MADL OUTSEWER, RYAN L 728 .85 Muscle Spasm 09/11/2009 MADL OUTSEWER, RYAN L 847 .9 Sprain Back 09/11/2009 [...] OLIVIA M 728.85 Muscle Spasm 09/11/2009 BEVERLEY ASSIGNMENT CLERKOLIVIA M 847.9 Sprain Back 09/11/2009 VIRGEN DO, SHERRON K 728.85 Muscle Spasm 09/11/2009 VIRGEN DO, SHERRON K 847.9 Sprain Back 09/11/2009 VIRGEN DO, SHERRON K 728.85 Muscle Spasm 09/11/2009 VIRGEN DO, SHERRON K 847.9 Sprain Back 09/11/2009 BEVERLEY DIAZ, OLIVIA M 728.85 Muscle Spasm 09/11/2009 BEVERLEY ASSIGNMENT CLERK, OLIVIA M 847.9 Sprain Back 09/11/2009 VIRGEN DO, SHERRON K 728.85 Muscle Spasm 09/11/2009 VIRGEN DO, SHERRON K 847.9 Sprain Back 10/23/2009 NODX No Di agnosis 10/23/2009 MICHELE OUTSEWERBRENNEN NODX No Diagnosis 10/23/2009 NODX No Di agnosis 10/23/2009 MICHELE OUTSEWER, BRENNEN ZAMORANO NODX No Diagnosis 10/23/2009 MICHELE OUTSEWER, BRENNEN ZAMORANO NODX No Diagnosis 10/23/2009 MICHELE OUTSEWERBRENNEN NODX No Diagnosis 10/23/2009 VIRGEN DO, SHERRON [...] SHERRON K NODX No Diagnosis 10/23/2009 BEVERLEY ASSIGNMENT CLERK, OLIVIA M N ODX No Diagnosis 10/23/2009 VIRGEN DO, SHERRON K NODX No Diagnosis 10/23/2009 VIRGEN DO, SHERRON K NODX No Diagnosis 10/23/2009 BEVERLEY ASSIGNMENT CLERK, OLIVIA M N ODX No Diagnosis 10/23/2009 [...] N IN JOINT, SITE UNSPECIFIED 05/09/2010 MICHELE OUTSEWER, BRENNEN LEPEH 719.40 PAIN IN JOINT, SITE UNSPECIFIED 05/09/2010 719.40 JOLIE N IN JOINT, SITE UNSPECIFIED 05/09/2010 MICHELE OUTSEWER, BRENNEN LEPEH 719.40 PAIN IN JOINT, SITE UNSPECIFIED 05/09/2010 MICHELE OUTSEWER, BRENNEN LEPEH 719.40 PAIN IN JOINT, SITE UNSPECIFIED 05/09/2010 MICHELE OUTSEWER, BRENNEN LEPEH 719.40 PAIN IN JOINT, SITE [...] UNSPECIFIED NATURE OF RESPIRATORY SYSTEM 06/13/2010 MICHELE OUTSEWER, BRENNEN JAUN 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 06/13/2010 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 06/13/2010 MICHELE OUTSEWER, BRENNEN JAUN 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 06/13/2010 MICHELE OUTSEWER, BRENNEN JAUN 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 06/13/2010 MICHELE OUTSEWER, BRENNEN LEPEH 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 06/13/2010 VIRGEN DO, SHERRON K 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 06/13/2010 MADL OUTSEWER, RYAN L 239 .1 NEOPLASMS OF UNSPECIFIED [...] SHERRON K 309.81 AN PTSD 07/22/2010 MADL OUTSEWER, RYAN L 295 .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 07/22/2010 MADL OUTSEWER, RYAN L 300 .02 AN GEN ANXIETY 07/22/2010 MADL OUTSEWER, RYAN L 301 .9 PD PERS DIS NOS 07/22/2010 MADL OUTSEWER, RYAN L 309 .81 AN PTSD 07/22/2010 [...] SHERRON K 300.02 AN GEN ANXIETY 07/22/2010 VRIGEN DO, SHERRON K 301.9 PD PERS DIS [...] 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 07/22/2010 BEVERLEY ASSIGNMENT CLERKOLIVIA M 300.02 AN GEN ANXIETY 07/22/2010 BEVERLEY ASSIGNMENT CLERKOLIVIA M 301.9 PD PERS DIS NOS 07/22/2010 [...] SHERRON K 309.81 AN PTSD 07/22/2010 BEVERLEY ASSIGNMENT CLERK, OLIVIA M 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 07/22/2010 BEVERLEY ASSIGNMENT CLERK, OLIVIA M 300.02 AN GEN ANXIETY 07/22/2010 BEVERLEY ASSIGNMENT CLERK, OLIVIA M 301.9 PD PERS DIS NOS 07/22/2010 BEVERLEY ASSIGNMENT CLERK, OLIVIA M 309.81 AN PTSD 07/22/2010 VIRGEN [...] Of Skin And Subcutaneous Tissue 12/17/2010 LAURAL OUTSEWER, RYAN L 562 .10 Diverticulosis Of Colon (without Hemorrhage) 12/17/2010 MADL OUTSEWER, RYAN L 709 .9 Unspecified Disorder Of [...] And Abscess Of Unspecified Sites 02/23/2011 MICHELE OUTSEWER, BRENNEN ZAMORANO 452 Portal Vein Thrombosis 02/23/2011 MICHELE OUTSEWER, BRENNEN LEPEH 682.9 Cellulitis And Abscess Of Unspecified Sites 02/23/2011 452 Portal Vein Thrombosis 02/23/2011 682.9 Cell ulitis And Abscess Of Unspecified Sites 02/23/2011 MICHELE OUTSEWER, BRENNEN ZAMORANO 45Joseph Portal Vein Thrombosis 02/23/2011 MICHELE OUTSEWER, BRENNEN LEPEH 682.9 Cellulitis And Abscess Of Unspecified Sites 02/23/2011 MICHELE OUTSEWER, BRENNEN ZAMORANO 452 Portal Vein Thrombosis 02/23/2011 MICHELE OUTSEWER, BRENNEN ZAMORANO 682.9 Cellulitis And Abscess Of Unspecified Sites 02/23/2011 MICHELE OUTSEWER, BRENNEN ZAMORANO 45Joseph Portal Vein Thrombosis 02/23/2011 MICHELE OUTSEWER, BRENNEN ZAMORANO 682.9 Cellulitis And Abscess Of Unspecified Sites 02/23/2011 VIRGEN DO, SHERRON K 452 Portal Vein Thrombosis 02/23/2011 VIRGEN DO, SHERRON K 682.9 Cellulitis And Abscess Of Unspecified Sites 02/23/2011 MADL OUTSEWER, RYAN L 452 Portal Vein Thrombosis 02/23/2011 MADL OUTSEWER, RYAN L 682 .9 Cellulitis And Abscess [...] APRN 780.50 SLEEP DISTURBANCE, UNSPECIFIED 02/24/2011 MICHELE OUTSEWER, BRENNEN ZAMORANO V58.30 Encounter For Change Or Removal Of Nonsurgical Wound D ressing 02/24/2011 780.50 SLE EP DISTURBANCE, UNSPECIFIED 02/24/2011 V58.30 Enc ounter For Change Or Removal Of Nonsurgical Wound Dressing 02/24/2011 MICHELE OUTSEWER, BRENNEN ZAMORANO 780.50 SLEEP DISTURBANCE, UNSPECIFIED 02/24/2011 MICHELE OUTSEWER, BRENNEN ZAMORANO V58.30 Encounter For Change Or Removal Of Nonsurgical Wound D ressing 02/24/2011 MICHELE OUTSEWER, BRENNEN ZAMORANO 780.50 SLEEP DISTURBANCE, UNSPECIFIED 02/24/2011 MICHELE OUTSEWER, BRENNEN ZAMORANO V58.30 Encounter For Change Or Removal Of Nonsurgical Wound D ressing 02/24/2011 MICHELE OUTSEWER, BRENNEN ZAMORANO 780.50 SLEEP DISTURBANCE, UNSPECIFIED 02/24/2011 MICHELE OUTSEWER, BRENNEN ZAMORANO V58.30 Encounter For Change Or Removal Of Nonsurgical Wound D ressing 02/24/2011 VIRGEN DO, SHERRON K 780.50 SLEEP DISTURBANCE, UNSPECIFIED 02/24/2011 VIRGEN DO, SHERRON K V58.30 Encounter For Change Or Removal Of Nonsurgical Wound Dressing 02/24/2011 MADL OUTSEWER, RYAN L 780 .50 SLEEP DISTURBANCE, UNSPECIFIED 02/24/2011 MADL OUTSEWER, RYAN L V58 .30 Encounter For Change [...] SHERRON K 789.05 Abdominal Pain Periumbilic 03/02/2011 VIREGN DO, SHERRON K 789.05 Abdominal Pain Periumbilic [...] ISSU E OF REPEAT PRESCRIPTIONS 03/18/2011 MICHELE OUTSEWERBRENNEN V68.1 ISSUE OF REPEAT PRESCRIPTIONS 03/18/2011 V68.1 [...] RESISTANT STAPHYLOCOCCUS AUR 03/24/2011 Ot 305.1 TOBA TREE SCOUT USE DISORDER 03/24/2011 Ot 530.81 ESO PHAGEAL [...] V58.69 MED ICATION HIGH RISK 03/25/2011 MICHELE OUTSEWER, BRENNEN ZAMORANO V58.69 MEDICATION HIGH RISK 03/25/2011 MICHELE OUTSEWER BRENNEN ZAMORANO V58.69 MEDICATION HIGH RISK 03/25/2011 MICHELE OUTSEWER, BRENNEN ZAMORANO V58.69 MEDICATION HIGH RISK 03/25/2011 [...] METHICILLIN RESISTANT STAPHYLOCOCC US AUREUS 03/26/2011 MICHELE OUTSEWERBRENNEN V12.04 PERSONAL HISTORY OF METHICILLIN RESISTANT STAPHYLOCOCC [...] 298.9 P PS YCHOSIS NOS 09/30/2011 MICHELE OUTSEWER, BRENNEN JAUN 298.9 P PSYCHOSIS NOS 09/30/2011 298.9 P PS YCHOSIS NOS 09/30/2011 MICHELE OUTSEWER, BRENNEN LEPEH 298.9 P PSYCHOSIS NOS 09/30/2011 MICHELE OUTSEWER, BRENNEN ZAMORANO 298.9 P PSYCHOSIS NOS 09/30/2011 MICHELE OUTSEWER, BRENNEN ZAMORANO 298.9 P PSYCHOSIS NOS 09/30/2011 VIRGEN DO, SHERRON K 298.9 P PSYCHOSIS NOS 09/30/2011 MADL OUTSEWER, RYAN L 298 .9 P PSYCHOSIS NOS [...] K 298.9 P PSYCHOSIS NOS 09/30/2011 BEVERLEY ASSIGNMENT CLERK, OLIVIA M 298.9 P PSYCHOSIS NOS 09/30/2011 VIRGEN DO, SHERRON K 298.9 P PSYCHOSIS NOS 09/30/2011 VIRGEN DO, SHERRON K 298.9 P PSYCHOSIS NOS 09/30/2011 BEVERLEY ASSIGNMENT CLERK, OLIVIA M 298.9 P PSYCHOSIS NOS 09/30/2011 [...] SHERRON K 346.90 MIGRAINE HEADACHE 10/04/2013 BEVERLEY ASSIGNMENT CLERK, OLIVIA M 346.90 MIGRAINE HEADACHE 10/04/2013 VIRGEN DO, SHERRON K 346.90 MIGRAINE HEADACHE 10/04/2013 VIRGEN DO, SHERRON K 346.90 MIGRAINE HEADACHE 10/04/2013 BEVERLEY ASSIGNMENT CLERK, OLIVIA M 346.90 MIGRAINE HEADACHE 10/04/2013 VIRGEN DO, SHERRON K 346.90 MIGRAINE HEADACHE 02/13/2014 VIRGEN DO, SHERRON K 338.29 OTHER CHRONIC PAIN 02/13/2014 MADVanessa OUTSEWER, RYAN L 338 .29 OTHER CHRONIC PAIN [...] K 338.29 OTHER CHRONIC PAIN 02/19/2014 MADL OUTSEWER, RYAN L 796 .9 OTHER NONSPECIFIC ABNORMAL [...] Ot 414. 01 CORONARY ATHEROSCLEROSIS OF [place] CORON 02/18/2015 GILES CHRISTIANSON MD Ot 424. [...] PAIN 06/27/2017 SAJAN CRUZ MD, Ot Z79.82 FPC (CURRENT) USE OF ASPIRIN 06/27/2017 SAJAN CRUZ [...] PAIN 06/29/2017 SAJAN CRUZ MD, Ot Z79.82 MAGAZINE GRINDER LOADER (CURRENT) USE OF ASPIRIN 06/29/2017 SAJAN CRUZ [...] PAIN 06/29/2017 SAJAN CRUZ MD, Ot Z79.82 MAGAZINE GRINDER LOADER (CURRENT) USE OF ASPIRIN 06/29/2017 SAJAN CRUZ [...] PAIN 07/14/2017 IMMANUEL FRANCO MD, Ot Z79.82 MAGAZINE GRINDER LOADER (CURRENT) USE OF ASPIRIN 07/14/2017 IMMANUEL FRANCO MD, Ot Z79.89 9 OTHER MAGAZINE GRINDER LOADER (CURRENT) DRUG THERAPY 07/14/2017 IMMANUEL FRANCO MD, [...] Ot I25.10 ATHSCL HEART DISEASE OF [place] CORONARY 08/23/2017 JUAN MANUEL EVANS DO Ot [...] Ot I25.10 ATHSCL HEART DISEASE OF [place] CORONARY 08/24/2017 NATHAN MELCHOR, JUAN MANUEL Ot [...] Ot I25.10 ATHSCL HEART DISEASE OF [place] CORONARY 08/24/2017 NATHAN MELCHOR JUAN MANUEL Ot [...] K Ot R25.2 [facility]2017 [facility] Z79.01 [facility] (CURRENT) USE OF ANTICOAGULANT 09/01/2017 MAHI PANIAGUA DO Ot Z79.82 MAGAZINE GRINDER LOADER (CURRENT) USE OF ASPIRIN 09/01/2017 SIVA MAHI [...] SPASM 09/08/2017 SIVA DOANILAA K Ot 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 09/08/2017 MAHI PANIAGUA DO Ot Z79.82 MAGAZINE GRINDER LOADER (CURRENT) USE OF ASPIRIN 09/08/2017 MAHI PANIAGUA [...] Ot I25.10 ATHSCL HEART DISEASE OF [place] CORONARY 09/24/2017 NATHAN MELCHOR JUAN MANUEL Ot I47.1 SUPRAVENTRICULAR TACHYCARDIA 09/24/2017 NATHAN MELCHOR JUAN MANUEL Ot I48.0 PAROXYSMAL ATRIAL FIBRILLATION 09/24/2017 NATHAN MELCHOR JUAN MANUEL Ot K21.9 GASTRO-ESOPHAGEAL REFLUX DISEASE WITHOUT 09/24/2017 NATHAN MELCHOR JUAN MANUEL Ot K59.09 OTHER CONSTIPATION 09/24/2017 NATHAN MELCHOR JUAN MANUEL Ot Z79.89 1 FPC (CURRENT) USE OF OPIATE ANALGE 09/24/2017 NATHAN MELCHOR JUAN MANUEL Ot Z79.89 9 OTHER [facility]PC (CURRENT) DRUG THERAPY 09/24/2017 NATHAN MELCHOR JUAN [...] UNSPECIFIED 09/25/2017 MAHI PANIAGUA DO Ot Z79.02 MAGAZINE GRINDER LOADER (CURRENT) USE OF ANTITHROMBOTI 09/25/2017 MAHI PANIAGUA [...] Z98.1 ARTH RODESIS STATUS 03/07/2018 EMILIE BANEGAS OUTSEWER Ot I86.1 SCROTAL VARICES 03/07/2018 EMILIE BANEGAS OUTSEWER Ot K46.9 UNSPECIFIED ABDOMINAL HERNIA WITHOUT OBS 03/07/2018 EMILIE BANEGAS OUTSEWER Ot N43.3 HYDROCELE, UNSPECIFIED 03/07/2018 EMILIE BANEGAS OUTSEWER Ot N50.3 CYST OF EPIDIDYMIS 06/24/2018 ERIKA DRAPER, JEOVANNY Mayo Ot B18. 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 06/24/2018 Ot M50.31 OTH ER CERVICAL DISC DEGENERATION, HIGH 06/24/2018 Ot Z98.1 ARTH RODESIS STATUS 06/24/2018 EMILIE BANEGAS OUTSEWER Ot I86.1 SCROTAL VARICES 06/24/2018 EMILIE BANEGAS OUTSEWER Ot K46.9 UNSPECIFIED ABDOMINAL HERNIA WITHOUT OBS 06/24/2018 EMILIE BANEGAS OUTSEWER Ot N43.3 HYDROCELE, UNSPECIFIED 06/24/2018 EMILIE BANEGAS OUTSEWER Ot N50.3 CYST OF EPIDIDYMIS 06/28/2018 JEOVANNY [...] OTHER SPECIFIED PROPHYLACT 09/05/2018 MAKENZIE, EMILIE M OUTSEWER Ot R94.6 ABNORMAL RESULTS OF THYROID FUNCTION MIKE 09/05/2018 TANISHACARRINGTON PALAEONTOLOGIST Ot Z29.8 ENCOUNTER FOR OTHER SPECIFIED PROPHYLACT [...] Ot I25.10 ATHSCL HEART DISEASE OF [place] CORONARY 10/13/2018 NIC LÓPEZ MD Ot I48.0 [...] APRN Ot N50.3 CYST OF EPIDIDYMIS 11/24/2018 JEVOANNY JAMES MD P Ot B18. 2 CHRONIC [...] Z98.1 ARTH RODESIS STATUS 11/25/2018 EMILIE BANEGAS OUTSEWER Ot I86.1 SCROTAL VARICES 11/25/2018 EMILIE BANEGAS [...] CHRONIC VIRAL HEPATITIS C 11/25/2018 EMILIE BANEGAS OUTSEWER Ot E03.8 OTHER SPECIFIED HYPOTHYROIDISM 11/25/2018 EMILIE BANEGAS OUTSEWER Ot I1 0 ESSENTIAL (PRIMARY) HYPERTENSION 11/25/2018 EMILIE BANEGAS OUTSEWER Ot I48.0 PAROXYSMAL ATRIAL FIBRILLATION 01/06/2019 POST [...] I25. 10 ATHSCL HEART DISEASE OF [place] CORONARY 03/01/2019 TERESA MENESES MD Ot I48. 91 UNSPECIFIED ATRIAL FIBRILLATION 03/01/2019 TERESA MENESES MD Ot I48. 92 UNSPECIFIED ATRIAL FLUTTER 03/01/2019 TERESA MENESES MD Ot L03.114 CELLULITIS OF LEFT UPPER LIMB 03/01/2019 TERSEA MENESES MD Ot Z82. 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 10 ATHSCL HEART DISEASE OF [place] CORONARY 03/03/2019 TERESA MENESES MD Ot I48. [...] I25. 10 ATHSCL HEART DISEASE OF [place] CORONARY 03/03/2019 TERESA MENESES MD Ot I48. [...] Ot I86.1 SCROTAL VARICES 03/09/2019 EMILIE BANEGAS OUTSEWER Ot K46.9 UNSPECIFIED ABDOMINAL HERNIA WITHOUT OBS 03/09/2019 EMILIE BANEGAS OUTSEWER Ot N43.3 HYDROCELE, UNSPECIFIED 03/09/2019 EMILIE BANEGAS OUTSEWER Ot N50.3 CYST OF EPIDIDYMIS 03/09/2019 ERIKA DRAPER, JEOVANNY P Ot B18. 2 CHRONIC VIRAL HEPATITIS C 03/09/2019 EMILIE BANEGAS OUTSEWER Ot R94.6 ABNORMAL RESULTS OF THYROID FUNCTION MIKE 03/09/2019 ERIKA DRAPER, JEOVANNY P Ot B18. 2 CHRONIC VIRAL HEPATITIS C 03/09/2019 EMILIE BANEGAS OUTSEWER Ot E03.8 OTHER SPECIFIED HYPOTHYROIDISM 03/09/2019 EMILIE BANEGAS OUTSEWER Ot I1 0 ESSENTIAL (PRIMARY) HYPERTENSION 03/09/2019 EMILIE BANEGAS OUTSEWER Ot I48.0 PAROXYSMAL ATRIAL FIBRILLATION 03/09/2019 NELLY [...] Ot I25.10 ATHSCL HEART DISEASE OF [place] CORONARY 03/09/2019 NELLY POST DO Ot I48.91 UNSPECIFIED ATRIAL FIBRILLATION 03/09/2019 NELLY POST DO Ot I48.92 UNSPECIFIED ATRIAL FLUTTER 03/09/2019 NELLY POST DO Ot R00.0 TACHYCARDIA, UNSPECIFIED 03/09/2019 [place] DO Ot 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 03/09/2019 [place] DO, NELLY Ot Z82.49 FAMILY HX OF ISCHEM HEART DIS AND OTH DI 03/09/2019 [place] DO, NELLY Ot Z85.00 PERSONAL HISTORY OF MALIGNANT NEOPLASM O 03/09/2019 [place] DO, NELLY Ot Z86.010 PERSONAL HISTORY OF COLONIC POLYPS 03/09/2019 [place] DO, NELLY Ot Z86.711 PERSONAL HISTORY OF PULMONARY EMBOLISM 03/09/2019 [place] DO, NELLY Ot Z86.718 PERSONAL HISTORY OF OTHER VENOUS THROMBO 03/09/2019 [place] DO, NELLY Ot Z87.19 PERSONAL HISTORY OF OTHER DISEASES OF TH 03/09/2019 [place] DO, NELLY Ot Z87.891 PERSONAL HISTORY OF NICOTINE DEPENDENCE 03/09/2019 [place] DO, NELLY Ot Z90.49 ACQUIRED ABSENCE OF OTHER SPECIFIED PART 03/10/2019 [place] DO, NELLY Ot E03.9 HYPOTHYROIDISM, UNSPECIFIED 03/10/2019 [place] DO, NELLY Ot F32.9 MAJOR DEPRESSIVE DISORDER, SINGLE EPISOD 03/10/2019 [place] DO, NELLY Ot F41.9 ANXIETY DISORDER, UNSPECIFIED 03/10/2019 [place] DO, NELLY Ot G43.909 MIGRAINE, UNSP, NOT INTRACTABLE, WITHOUT 03/10/2019 [place] DO, NELLY Ot I25.10 ATHSCL HEART DISEASE OF [place] CORONARY 03/10/2019 [place] DO, NELLY Ot I48.91 UNSPECIFIED ATRIAL FIBRILLATION 03/10/2019 [place] DO, NELLY Ot I48.92 UNSPECIFIED ATRIAL FLUTTER 03/10/2019 [place] DO, NELLY Ot R00.0 TACHYCARDIA, UNSPECIFIED 03/10/2019 [place] DO, NELLY Ot 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 03/10/2019 [place] DO, NELLY Ot Z82.49 FAMILY HX OF ISCHEM HEART DIS AND OTH DI 03/10/2019 [place] DO, NELLY Ot Z85.00 PERSONAL HISTORY OF MALIGNANT NEOPLASM O 03/10/2019 [place] DO, NELLY Ot Z86.010 PERSONAL HISTORY OF COLONIC POLYPS 03/10/2019 [place] DO, NELLY Ot Z86.711 PERSONAL HISTORY OF PULMONARY EMBOLISM 03/10/2019 [place] DO, NELLY Ot Z86.718 PERSONAL HISTORY OF OTHER VENOUS THROMBO 03/10/2019 [place] DO, NELLY Ot Z87.19 PERSONAL HISTORY OF OTHER DISEASES OF TH 03/10/2019 [place] DO, NELLY Ot Z87.891 PERSONAL HISTORY OF NICOTINE DEPENDENCE 03/10/2019 [place] DO, NELLY Ot Z90.49 ACQUIRED ABSENCE OF OTHER SPECIFIED PART 03/10/2019 [place] DO, NELLY Ot E03.9 HYPOTHYROIDISM, UNSPECIFIED 03/10/2019 [place] DO, NELLY Ot F32.9 MAJOR DEPRESSIVE DISORDER, SINGLE EPISOD 03/10/2019 [place] DO, NELLY Ot F41.9 ANXIETY DISORDER, UNSPECIFIED 03/10/2019 [place] DO, NELLY Ot G43.909 MIGRAINE, UNSP, NOT INTRACTABLE, WITHOUT 03/10/2019 [place] DO, NELLY Ot I25.10 ATHSCL HEART DISEASE OF [place] CORONARY 03/10/2019 [place] DO, NELLY Ot I48.91 UNSPECIFIED ATRIAL FIBRILLATION 03/10/2019 [place] DO, NELLY Ot I48.92 UNSPECIFIED ATRIAL FLUTTER 03/10/2019 [place] DO, NELLY Ot R00.0 TACHYCARDIA, UNSPECIFIED 03/10/2019 [place] DO, NELLY Ot 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 03/10/2019 [place] DO, NELLY Ot Z82.49 FAMILY HX OF ISCHEM HEART DIS AND OTH DI 03/10/2019 [place] DO, NELLY Ot Z85.00 PERSONAL HISTORY OF MALIGNANT NEOPLASM O 03/10/2019 [place] DO, NELLY Ot Z86.010 PERSONAL HISTORY OF COLONIC POLYPS 03/10/2019 [place] DO, NELLY Ot Z86.711 PERSONAL HISTORY OF PULMONARY EMBOLISM 03/10/2019 [place] DO, NELLY Ot Z86.718 PERSONAL HISTORY OF OTHER VENOUS THROMBO 03/10/2019 [place] DO, NELLY Ot Z87.19 PERSONAL HISTORY OF OTHER DISEASES OF TH 03/10/2019 [place] DO, NELLY Ot Z87.891 PERSONAL HISTORY OF NICOTINE DEPENDENCE 03/10/2019 [place] DO, NELLY Ot Z90.49 ACQUIRED ABSENCE OF OTHER SPECIFIED PART 03/13/2019 [place] DO, NELLY Ot B19.20 UNSPECIFIED VIRAL HEPATITIS C WITHOUT HE 03/13/2019 [place] DO, NELLY Ot E03.9 HYPOTHYROIDISM, UNSPECIFIED 03/13/2019 [place] DO, NELLY Ot F32.9 MAJOR DEPRESSIVE DISORDER, SINGLE EPISOD 03/13/2019 [place] DO, NELLY Ot F41.9 ANXIETY DISORDER, UNSPECIFIED 03/13/2019 [place] DO, NELLY Ot G43.909 MIGRAINE, UNSP, NOT INTRACTABLE, WITHOUT 03/13/2019 [place] DO, NELLY Ot I25.10 ATHSCL HEART DISEASE OF [place] CORONARY 03/13/2019 [place] DO, NELLY Ot I48.91 UNSPECIFIED ATRIAL FIBRILLATION 03/13/2019 [place] DO, NELLY Ot I48.92 UNSPECIFIED ATRIAL FLUTTER 03/13/2019 [place] DO, NELLY Ot R00.0 TACHYCARDIA, UNSPECIFIED 03/13/2019 [place] DO, NELLY Ot Z79.01 [facility] (CURRENT) USE OF ANTICOAGULANT 03/13/2019 [place] DO, NELLY Ot Z82.49 FAMILY HX OF ISCHEM HEART DIS AND OTH DI 03/13/2019 [place] DO, NELLY Ot Z85.00 PERSONAL HISTORY OF MALIGNANT NEOPLASM O 03/13/2019 [place] DO, NELLY Ot Z86.010 PERSONAL HISTORY OF COLONIC POLYPS 03/13/2019 [place] DO, NELLY Ot Z86.711 PERSONAL HISTORY OF PULMONARY EMBOLISM 03/13/2019 [place] DO, NELLY Ot Z86.718 PERSONAL HISTORY OF OTHER VENOUS THROMBO 03/13/2019 [place] DO, NELLY Ot Z87.19 PERSONAL HISTORY OF OTHER DISEASES OF TH 03/13/2019 [place] DO, NELLY Ot Z87.891 PERSONAL HISTORY OF NICOTINE DEPENDENCE 03/13/2019 [place] DO, NELLY Ot Z90.49 ACQUIRED ABSENCE OF OTHER SPECIFIED PART 03/15/2019 [place] DO, NELLY Ot B19.20 UNSPECIFIED VIRAL HEPATITIS C WITHOUT HE 03/15/2019 [place] DO, NELLY Ot E03.9 HYPOTHYROIDISM, UNSPECIFIED 03/15/2019 [place] DO, NELLY Ot F32.9 MAJOR DEPRESSIVE DISORDER, SINGLE EPISOD 03/15/2019 [place] DO, NELLY Ot F41.9 ANXIETY DISORDER, UNSPECIFIED 03/15/2019 [place] DO, NELLY Ot G43.909 MIGRAINE, UNSP, NOT INTRACTABLE, WITHOUT 03/15/2019 [place] DO, NELLY Ot I25.10 ATHSCL HEART DISEASE OF [place] CORONARY 03/15/2019 [place] DO, NELLY Ot I48.91 UNSPECIFIED ATRIAL FIBRILLATION 03/15/2019 [place] DO, NELLY Ot I48.92 UNSPECIFIED ATRIAL FLUTTER 03/15/2019 [place] DO, NELLY Ot R00.0 TACHYCARDIA, UNSPECIFIED 03/15/2019 [place] DO, NELLY Ot Z79.01 [facility] (CURRENT) USE OF ANTICOAGULANT 03/15/2019 [place] DO, NELLY Ot Z82.49 FAMILY HX OF [place] HEART DIS AND OTH DI 03/15/2019 [place] DO, NELLY Ot Z85.00 PERSONAL HISTORY OF MALIGNANT NEOPLASM O 03/15/2019 [place] DO, NELLY Ot Z86.010 PERSONAL HISTORY OF [...] Ot I25.10 ATHSCL HEART DISEASE OF [place] CORONARY 04/10/2019 JOSE TAVERAS DO, Ot I25.2 [...] PERSONAL HISTORY OF PULMONARY EMBOLISM 04/10/2019 JOSE ATVERAS DO, Ot Z86.718 PERSONAL HISTORY OF OTHER [...] I25. 10 ATHSCL HEART DISEASE OF [place] CORONARY 04/14/2019 TERESA MENESES MD Ot I48. [...] Ot I25.10 ATHSCL HEART DISEASE OF [place] CORONARY 04/17/2019 JOSE TAVERAS DO, Ot I25.2 [...] MIGRAINE, UNSP, NOT INTRACTABLE, WITHOUT 04/20/2019 TERESA EMNESES MD Ot I25. 10 ATHSCL HEART DISEASE OF [place] CORONARY 04/20/2019 TERESA MENESES MD Ot I48. [...] DO, Ot F41.9 ANXIETY DISORDER, UNSPECIFIED 05/30/2019 [place] DO, Ot G43.909 MIGRAINE, UNSP, NOT INTRACTABLE, WITHOUT 05/30/2019 [place] DO, Ot I25.10 ATHSCL HEART DISEASE OF [place] CORONARY 05/30/2019 [place] DO, NELLY Ot I48.91 UNSPECIFIED ATRIAL FIBRILLATION 05/30/2019 [place] DO, NELLY Ot I48.92 UNSPECIFIED ATRIAL FLUTTER 05/30/2019 [place] DO, NELLY Ot I50.9 HEART FAILURE, UNSPECIFIED 05/30/2019 [place] DO, NELLY Ot R07.9 CHEST PAIN, UNSPECIFIED 05/30/2019 [place] DO, NELLY Ot R79.89 OTHER SPECIFIED ABNORMAL FINDINGS OF BLO 05/30/2019 [place] DO, NELLY Ot Z82.49 FAMILY HX OF [place] HEART DIS AND OTH DI 05/30/2019 [place] DO, NELLY Ot Z86.010 PERSONAL HISTORY OF COLONIC POLYPS 05/30/2019 [place] DO, NELLY Ot Z86.711 PERSONAL HISTORY OF PULMONARY EMBOLISM 05/30/2019 [place] DO, NELLY Ot Z86.718 PERSONAL HISTORY OF OTHER VENOUS THROMBO 05/30/2019 [place] DO, NELLY Ot Z87.891 PERSONAL HISTORY OF NICOTINE DEPENDENCE 05/30/2019 [place] DO, NELLY Ot Z90.49 ACQUIRED ABSENCE OF OTHER SPECIFIED PART 06/02/2019 [place] DO, NELLY Ot B19.20 UNSPECIFIED VIRAL HEPATITIS C WITHOUT HE 06/02/2019 [place] DO, NELLY Ot E03.9 HYPOTHYROIDISM, UNSPECIFIED 06/02/2019 [place] DO, NELLY Ot F32.9 MAJOR DEPRESSIVE DISORDER, SINGLE EPISOD 06/02/2019 [place] DO, NELLY Ot F41.9 ANXIETY DISORDER, UNSPECIFIED 06/02/2019 [place] DO, NELLY Ot G43.909 MIGRAINE, UNSP, NOT INTRACTABLE, WITHOUT 06/02/2019 [place] DO, NELLY Ot I25.10 ATHSCL HEART DISEASE OF [place] CORONARY 06/02/2019 [place] DO, NELLY Ot I48.91 UNSPECIFIED ATRIAL FIBRILLATION 06/02/2019 [place] DO, NELLY Ot I48.92 UNSPECIFIED ATRIAL FLUTTER 06/02/2019 [place] DO, NELLY Ot I50.9 HEART FAILURE, UNSPECIFIED 06/02/2019 [place] DO, NELLY Ot R07.9 CHEST PAIN, UNSPECIFIED 06/02/2019 [place] DO, NELLY Ot R79.89 OTHER SPECIFIED ABNORMAL FINDINGS OF BLO 06/02/2019 [place] DO, NELLY Ot Z82.49 FAMILY HX OF ISCHEM HEART DIS AND OTH DI 06/02/2019 [place] DO, NELLY Ot Z86.010 PERSONAL HISTORY OF [...] I25. 10 ATHSCL HEART DISEASE OF [place] CORONARY 10/21/2019 TERESA MENESES MD Ot I48. [...] I25. 10 ATHSCL HEART DISEASE OF [place] CORONARY 11/09/2019 FLACO DURÁN MD Ot I48. 91 UNSPECIFIED ATRIAL FIBRILLATION 11/09/2019 FLACO DURÁN MD Ot R07. 0 PAIN IN THROAT 11/09/2019 FLACO DURÁN MD, Ot R07. 9 CHEST PAIN, UNSPECIFIED 11/09/2019 FLACO DURÁN MD Ot R22. 0 LOCALIZED SWELLING, MASS AND LUMP, HEAD 11/09/2019 [place] MD, FLACO W Ot Z79. 01 [facility] (CURRENT) USE OF ANTICOAGULANT 11/09/2019 FLACO DURÁN [...] I25. 10 ATHSCL HEART DISEASE OF [place] CORONARY 11/14/2019 FLACO DURÁN MD, Ot I48. 91 UNSPECIFIED ATRIAL FIBRILLATION 11/14/2019 FLACO DURÁN MD Ot R07. 0 PAIN IN THROAT 11/14/2019 FLACO DURÁN MD, Ot R07. 9 CHEST PAIN, UNSPECIFIED 11/14/2019 FLACO DURÁN MD, Ot R22. 0 LOCALIZED SWELLING, MASS AND LUMP, HEAD 11/14/2019 FLACO DURÁN MD, Ot Z79. 01 [facility] (CURRENT) USE OF ANTICOAGULANT 11/14/2019 FLACO DURÁN [...] I25. 10 ATHSCL HEART DISEASE OF [place] CORONARY 11/22/2019 FLACO DURÁN MD, Ot I48. 91 UNSPECIFIED ATRIAL FIBRILLATION 11/22/2019 FLACO DURÁN MD, Ot R07. 0 PAIN IN THROAT 11/22/2019 FLACO DURÁN MD, Ot R07. 9 CHEST PAIN, UNSPECIFIED 11/22/2019 FLACO DURÁN MD, Ot R22. 0 LOCALIZED SWELLING, MASS AND LUMP, HEAD 11/22/2019 FLACO DURÁN MD, Ot Z79. 01 [employer] (CURRENT) USE OF ANTICOAGULANT 11/22/2019 FLACO DURÁN [...] I25. 10 ATHSCL HEART DISEASE OF [place] CORONARY 12/20/2019 TERESA MENESES MD Ot I48. [...] I25.1 0 ATHSCL HEART DISEASE OF [place] CORONARY 01/19/2020 KACY MARC MD Ot I48.9 1 UNSPECIFIED ATRIAL FIBRILLATION 01/19/2020 KACY MARC MD Ot I48.9 2 UNSPECIFIED ATRIAL FLUTTER 01/19/2020 KACY MARC MD Ot M19.9 1 PRIMARY OSTEOARTHRITIS, UNSPECIFIED SITE 01/19/2020 KACY MARC MD Ot N40.0 BENIGN PROSTATIC HYPERPLASIA WITHOUT LOW 01/19/2020 KACY MARC MD Ot R07.9 CHEST PAIN, UNSPECIFIED 01/19/2020 KACY MARC MD Ot Z79.8 99 OTHER [facility] (CURRENT) DRUG THERAPY 01/19/2020 KACY MARC MD [...] I25. 10 ATHSCL HEART DISEASE OF [place] CORONARY 01/19/2020 TERESA MENESES MD Ot I48. [...] I25. 10 ATHSCL HEART DISEASE OF [place] CORONARY 01/25/2020 FLACO DURÁN MD Ot I48. 91 UNSPECIFIED ATRIAL FIBRILLATION 01/25/2020 FLACO DURÁN MD Ot R07. 0 PAIN IN THROAT 01/25/2020 FLACO DURÁN MD, Ot R07. 9 CHEST PAIN, UNSPECIFIED 01/25/2020 FLACO DURÁN MD, Ot R22. 0 LOCALIZED SWELLING, MASS AND LUMP, HEAD 01/25/2020 FLACO DURÁN MD, Ot Z79. 01 [facility] (CURRENT) USE OF ANTICOAGULANT 01/25/2020 FLACO DURÁN [...] 02/22/2020 TERESA MENESES MD Ot Z79. 01 [facility] (CURRENT) USE OF ANTICOAGULANT 02/22/2020 TERESA MENESES [...] 02/29/2020 TERESA MENESES MD Ot Z79. 01 [employer] (CURRENT) USE OF ANTICOAGULANT 02/29/2020 TERESA MENESES [...] I25. 10 ATHSCL HEART DISEASE OF [place] CORONARY 03/11/2020 SHAAN DRAPER, JUAN CARLOS Estevez [...] JUAN CARLOS GARDUNO MD Ot Z79. 01 [employer] (CURRENT) USE OF ANTICOAGULANT 03/11/2020 JUAN CARLOS [...] I25. 10 ATHSCL HEART DISEASE OF [place] CORONARY 03/15/2020 JUAN CARLOS GARDUNO MD Ot [...] JUAN CARLOS GARDUNO MD Ot Z79. 01 [facility] (CURRENT) USE OF ANTICOAGULANT 03/15/2020 JUAN CARLOS [...] I25. 10 ATHSCL HEART DISEASE OF [place] CORONARY 03/16/2020 JUAN CARLOS GARDUNO MD Ot I48. 0 PAROXYSMAL ATRIAL FIBRILLATION 03/16/2020 JUAN CARLOS GARDUNO MD Ot J18. 9 PNEUMONIA, UNSPECIFIED ORGANISM 03/16/2020 JUAN CARLOS GARDUNO MD Ot J96. 00 ACUTE RESPIRATORY FAILURE, UNSP W HYPOXI 03/16/2020 JUAN CARLOS GARDUNO MD Ot K57. 90 DVRTCLOS OF INTEST, PART UNSP, W/O PERF 03/16/2020 JUAN CARLOS GARUDNO MD Ot K64. 9 UNSPECIFIED HEMORRHOIDS 03/16/2020 [...] JUAN CARLOS GARDUNO MD Ot Z79. 01 [employer] (CURRENT) USE OF ANTICOAGULANT 03/16/2020 JUAN CARLOS [...] DEPRESSIVE DISORDER, SINGLE EPISOD 03/16/2020 SHAAN DRAPER, JUAN CARLOS Estevez Ot F41. 9 ANXIETY DISORDER, UNSPECIFIED 03/16/2020 SHAAN DRAPER, JUAN CARLOS Estevez Ot G43.909 MIGRAINE, UNSP, NOT INTRACTABLE, WITHOUT 03/16/2020 SHAAN DRAPER, JUAN CARLOS Estevez Ot I10 ESSENTIAL (PRIMARY) HYPERTENSION 03/16/2020 SHAAN DRAPER, JUAN CARLOS Estevez Ot I21. A1 MYOCARDIAL INFARCTION TYPE 2 03/16/2020 SHAAN DRAPER, JUAN CARLOS Estevez Ot I25. 10 ATHSCL HEART DISEASE OF [place] CORONARY 03/16/2020 SHAAN DRAPER, JUAN CARLOS Estevez Ot I48. 0 PAROXYSMAL ATRIAL FIBRILLATION 03/16/2020 SHAAN DRAPER, JUAN CARLOS Estevez Ot J18. 9 PNEUMONIA, UNSPECIFIED ORGANISM 03/16/2020 SHAAN DRAPER, JUAN CARLOS Estevez Ot J96. [...] JUAN CARLOS GARDUNO MD Ot Z79. 01 [facility] (CURRENT) USE OF ANTICOAGULANT 03/16/2020 JUAN CARLOS [...] 04/01/2020 TERESA MENESES MD Ot Z79. 01 [employer] (CURRENT) USE OF ANTICOAGULANT 04/01/2020 TERESA MENESES [...] 04/03/2020 [place] DO, JUAN MANUEL Ot Z79.01 [facility] (CURRENT) USE OF ANTICOAGULANT 04/03/2020 [place] DO, [...] I25. 10 ATHSCL HEART DISEASE OF [place] CORONARY 04/05/2020 JUAN CARLOS GARDUNO MD Ot [...] JUAN CARLOS GARDUNO MD Ot Z79. 01 [employer] (CURRENT) USE OF ANTICOAGULANT 04/05/2020 JUAN CARLOS [...] I25. 10 ATHSCL HEART DISEASE OF [place] CORONARY 04/05/2020 SHAAN DRAPER, JUAN CARLOS Estevez [...] DRAPER, JUAN CARLOS Estevez Ot Z79. 01 [employer] (CURRENT) USE OF ANTICOAGULANT 04/05/2020 SHAAN DRAPER, [...] I25. 10 ATHSCL HEART DISEASE OF [place] CORONARY 04/05/2020 SHAAN DRAPER, JUAN CARLOS Estevez Ot I48. 0 PAROXYSMAL ATRIAL FIBRILLATION 04/05/2020 SHAAN DRAPER, JUAN CARLOS Estevez Ot J18. 9 PNEUMONIA, UNSPECIFIED ORGANISM 04/05/2020 SHAAN DRAPER, JUAN CARLOS Estevez Ot J96. 00 ACUTE RESPIRATORY FAILURE, UNSP W HYPOXI 04/05/2020 SHAAN DRAPER, JUAN CARLOS Estevez Ot K57. 90 DVRTCLOS OF INTEST, PART UNSP, W/O PERF 04/05/2020 SHAAN DRAPER, JUAN CARLOS Estevez Ot K64. 9 UNSPECIFIED HEMORRHOIDS 04/05/2020 JUAN CARLOS GARDUNO MD Ot M19. 91 PRIMARY OSTEOARTHRITIS, UNSPECIFIED SITE 04/05/2020 SHAAN DRAPER, JUAN CARLOS Estevez Ot N17. [...] JUAN CARLOS GARDUNO MD Ot Z79. 01 [employer]ER (CURRENT) USE OF ANTICOAGULANT 04/05/2020 JUAN CARLOS GARDUNO MD Ot Z85.038 PERSONAL HISTORY OF MALIGNANT NEOPLASM O 04/05/2020 JUAN CARLOS GARDUNO MD Ot Z86. 19 PERSONAL HISTORY OF OTHER INFECTIOUS AND 04/05/2020 JUAN CARLOS GARDUNO MD Ot Z86.711 PERSONAL HISTORY OF PULMONARY EMBOLISM 04/05/2020 JUAN CARLOS GARDUNO MD Ot Z87.891 PERSONAL HISTORY OF NICOTINE DEPENDENCE 04/05/2020 JUAN CARLOS GARDUNO MD Ot Z90. 81 ACQUIRED ABSENCE OF SPLEEN 04/06/2020 [place] DO, NELLY Ot E03.9 HYPOTHYROIDISM, UNSPECIFIED 04/06/2020 [place] DO, NELLY Ot E78.00 PURE HYPERCHOLESTEROLEMIA, UNSPECIFIED 04/06/2020 [place] DO, NELLY Ot F41.9 ANXIETY DISORDER, UNSPECIFIED 04/06/2020 [place] DO, NELLY Ot G89.29 OTHER CHRONIC PAIN 04/06/2020 [place] DO, NELLY Ot I10 ESSENTIAL (PRIMARY) HYPERTENSION 04/06/2020 [place] DO, NELLY Ot I48.91 UNSPECIFIED ATRIAL FIBRILLATION 04/06/2020 [place] DO, NELLY Ot I50.9 HEART FAILURE, UNSPECIFIED 04/06/2020 [facility], NELLY Ot M54.9 DORSALGIA, UNSPECIFIED 04/06/2020 [place] DO, NELLY Ot R42 DIZZINESS AND GIDDINESS 04/06/2020 [facility], NELLY Ot R55 SYNCOPE AND COLLAPSE 04/06/2020 [facility], NELLY Ot Z79.01 [facility] (CURRENT) USE OF ANTICOAGULANT 04/06/2020 [facility], NELLY Ot Z79.891 [facility] (CURRENT) USE OF OPIATE ANALGE 04/06/2020 [facility], NELLY Ot Z82.49 FAMILY HX OF [place] HEART DIS AND OTH DI 04/06/2020 [facility], NELLY Ot Z85.038 PERSONAL HISTORY OF MALIGNANT NEOPLASM O 04/06/2020 [facility], NELLY Ot Z91.041 RADIOGRAPHIC DYE ALLERGY STATUS 04/19/2020 SHAAN DRAPER, JUAN CARLOS Estevez Ot A41. 51 SEPSIS DUE TO ESCHERICHIA COLI [E. COLI] 04/19/2020 SHAAN DRAPER, JUAN CARLOS Estevez Ot D64. 9 ANEMIA, UNSPECIFIED 04/19/2020 SHAAN DRAPER, JUAN CARLOS Estevez Ot E03. 9 HYPOTHYROIDISM, UNSPECIFIED 04/19/2020 SHAAN DRAPER, JUAN CARLOS Estevez Ot E78. 00 PURE HYPERCHOLESTEROLEMIA, UNSPECIFIED 04/19/2020 SHAAN DRAPER, JUAN CARLOS Estevez Ot E87. 2 ACIDOSIS 04/19/2020 SHAAN DRAPER, JUAN CARLOS Estevez Ot F32. 9 MAJOR DEPRESSIVE DISORDER, SINGLE EPISOD 04/19/2020 SHAAN DRAPER, JUAN CARLOS Estevez Ot F41. 9 ANXIETY DISORDER, UNSPECIFIED 04/19/2020 SHAAN DRAPER, JUAN CARLOS Estevez Ot G43.909 MIGRAINE, UNSP, NOT INTRACTABLE, WITHOUT 04/19/2020 SHAAN DRAPER, JUAN CARLOS Estevez Ot I10 ESSENTIAL (PRIMARY) HYPERTENSION 04/19/2020 SHAAN DRAPER, JUAN CARLOS Estevez Ot I21. A1 MYOCARDIAL INFARCTION TYPE 2 04/19/2020 SHAAN DRAPER, JUAN CARLOS Estevez Ot I25. 10 ATHSCL HEART DISEASE OF [place] CORONARY 04/19/2020 SHAAN DRAPER, JUAN CARLOS Estevez Ot I48. 0 PAROXYSMAL ATRIAL FIBRILLATION 04/19/2020 SHAAN DRAPER, JUAN CARLOS Estevez Ot J18. 9 PNEUMONIA, UNSPECIFIED ORGANISM 04/19/2020 SHAAN DRAPER, JUAN CARLOS Estevez Ot J96. 00 ACUTE RESPIRATORY FAILURE, UNSP W HYPOXI 04/19/2020 SHAAN DRAPER, JUAN CARLOS Estevez Ot K57. 90 DVRTCLOS OF INTEST, PART UNSP, W/O PERF 04/19/2020 JUAN CARLOS GARDUNO MD Ot K64. 9 UNSPECIFIED HEMORRHOIDS 04/19/2020 SHAAN DRAPER, JUAN CARLOS Estevez Ot M19. 91 PRIMARY OSTEOARTHRITIS, UNSPECIFIED SITE 04/19/2020 JUAN CARLOS GARDUNO MD Ot N17. 9 ACUTE KIDNEY FAILURE, UNSPECIFIED 04/19/2020 JUAN CARLOS GARDUNO MD Ot N39. 0 URINARY TRACT INFECTION, SITE NOT SPECIF 04/19/2020 JUAN CARLOS GARDUNO MD Ot N42. 9 DISORDER OF PROSTATE, UNSPECIFIED 04/19/2020 JUAN CARLOS GARDUNO MD Ot R04. 2 HEMOPTYSIS 04/19/2020 JUAN CARLOS GARDUNO MD Ot R65. 21 SEVERE SEPSIS WITH SEPTIC SHOCK 04/19/2020 JUAN CARLOS GARDUNO MD Ot Z20.828 CONTACT W AND EXPOSURE TO OTH VIRAL COMM 04/19/2020 JUAN CARLOS GARDUNO MD Ot Z79. 01 [facility] (CURRENT) USE OF ANTICOAGULANT 04/19/2020 JUAN CARLOS GARDUNO MD Ot Z85.038 PERSONAL HISTORY OF MALIGNANT NEOPLASM O 04/19/2020 JUAN CARLOS GARDUNO MD Ot Z86. 19 PERSONAL HISTORY OF OTHER INFECTIOUS AND 04/19/2020 JUAN CARLOS GARDUNO MD Ot Z86.711 PERSONAL HISTORY OF PULMONARY EMBOLISM 04/19/2020 SHAAN DRAPER, JUAN CARLOS Estevez Ot Z87.891 PERSONAL HISTORY OF NICOTINE DEPENDENCE 04/19/2020 SHAAN DRAPER, JUAN CARLOS Estevez Ot Z90. 81 ACQUIRED ABSENCE OF SPLEEN 04/19/2020 JUAN CARLOS GARDUNO MD Ot A41. 51 SEPSIS DUE TO ESCHERICHIA COLI [E. COLI] 04/19/2020 JUAN CARLOS GARDUNO MD Ot D64. 9 ANEMIA, UNSPECIFIED 04/19/2020 SHAAN DRAPER, JUAN CARLOS Estevez Ot E03. 9 HYPOTHYROIDISM, UNSPECIFIED 04/19/2020 SHAAN DRAPER, JUAN CARLOS Estevez Ot E78. 00 PURE HYPERCHOLESTEROLEMIA, UNSPECIFIED 04/19/2020 SHAAN DRAPER, JUAN CARLOS Estevez Ot E87. 2 ACIDOSIS 04/19/2020 JUAN CARLOS GARDUNO MD Ot F32. 9 MAJOR DEPRESSIVE DISORDER, SINGLE EPISOD 04/19/2020 SHAAN DRAPER, JUAN CARLOS Estevez Ot F41. 9 ANXIETY DISORDER, UNSPECIFIED 04/19/2020 JUAN CARLOS GARDUNO MD Ot G43.909 MIGRAINE, UNSP, NOT INTRACTABLE, WITHOUT 04/19/2020 SHAAN DRAPER, JUAN CARLOS Estevez Ot I10 ESSENTIAL (PRIMARY) HYPERTENSION 04/19/2020 JUAN CARLOS GARDUNO MD Ot I21. A1 MYOCARDIAL INFARCTION TYPE 2 04/19/2020 JUAN CARLOS GARDUNO MD Ot I25. 10 ATHSCL HEART DISEASE OF [place] CORONARY 04/19/2020 JUAN CARLOS GARDUNO MD Ot I48. 0 PAROXYSMAL ATRIAL FIBRILLATION 04/19/2020 JUAN CARLOS GARDUNO MD Ot J18. 9 PNEUMONIA, UNSPECIFIED ORGANISM 04/19/2020 JUAN CARLOS GARDUNO MD Ot J96. 00 ACUTE RESPIRATORY FAILURE, UNSP W HYPOXI 04/19/2020 JUAN CARLOS GARDUNO MD Ot K57. 90 DVRTCLOS OF INTEST, PART UNSP, W/O PERF 04/19/2020 JUAN CARLOS GARDUNO MD Ot K64. 9 UNSPECIFIED HEMORRHOIDS 04/19/2020 JUAN CARLOS GARDUNO MD Ot M19. 91 PRIMARY OSTEOARTHRITIS, UNSPECIFIED SITE 04/19/2020 JUAN CARLOS GARDUNO MD Ot N17. 9 ACUTE KIDNEY FAILURE, UNSPECIFIED 04/19/2020 JUAN CARLOS GARDUNO MD Ot N39. 0 URINARY TRACT INFECTION, SITE NOT SPECIF 04/19/2020 JUAN CARLOS GARDUNO MD Ot N42. 9 DISORDER OF PROSTATE, UNSPECIFIED 04/19/2020 JUAN CARLOS GARDUNO MD Ot R04. 2 HEMOPTYSIS 04/19/2020 JUAN CARLOS GARDUNO MD Ot R65. 21 SEVERE SEPSIS WITH SEPTIC SHOCK 04/19/2020 JUAN CARLOS GARDUNO MD Ot Z20.828 CONTACT W AND EXPOSURE TO OTH VIRAL COMM 04/19/2020 JUAN CARLOS GARDUNO MD Ot Z79. 01 [facility] (CURRENT) USE OF ANTICOAGULANT 04/19/2020 JUAN CARLOS GARDUNO MD Ot Z85.038 PERSONAL HISTORY OF MALIGNANT NEOPLASM O 04/19/2020 JUAN CARLOS GARDUNO MD Ot Z86. 19 PERSONAL HISTORY OF OTHER INFECTIOUS AND 04/19/2020 JUAN CARLOS GARDUNO MD Ot Z86.711 PERSONAL HISTORY OF PULMONARY EMBOLISM 04/19/2020 JUAN CARLOS GARDUNO MD Ot Z87.891 PERSONAL HISTORY OF NICOTINE DEPENDENCE 04/19/2020 JUAN CARLOS GARDUNO MD Ot Z90. 81 ACQUIRED ABSENCE OF SPLEEN 04/21/2020 JAMILA EVANS DOI Ot A41.51 SEPSIS DUE TO ESCHERICHIA COLI [E. COLI] 04/21/2020 JAMILA EVANS DOI Ot B18.2 CHRONIC VIRAL HEPATITIS C 04/21/2020 NATHAN MELCHOR JUAN MANUEL Ot C18.9 MALIGNANT NEOPLASM OF COLON, UNSPECIFIED 04/21/2020 [place] DO, JUAN MANUEL Ot E03.9 HYPOTHYROIDISM, UNSPECIFIED 04/21/2020 [place] DO, JUAN MANUEL Ot E78.5 HYPERLIPIDEMIA, UNSPECIFIED 04/21/2020 [place] DO, JUAN MANUEL Ot E87.2 ACIDOSIS 04/21/2020 [place] DO, JUAN MANUEL Ot F32.9 MAJOR DEPRESSIVE DISORDER, SINGLE EPISOD 04/21/2020 [place] DO, JUAN MANUEL Ot F41.9 ANXIETY DISORDER, UNSPECIFIED 04/21/2020 [place] DO, JUAN MANUEL Ot F60.3 BORDERLINE PERSONALITY DISORDER 04/21/2020 [place] DO, JUAN MANUEL Ot G72.81 CRITICAL ILLNESS MYOPATHY 04/21/2020 [place] DO, JUAN MANUEL Ot G89.4 CHRONIC PAIN SYNDROME 04/21/2020 [place] DO, JUAN MANUEL Ot I10 ESSENTIAL (PRIMARY) HYPERTENSION 04/21/2020 [place] DO, JUAN MANUEL Ot I21.A1 MYOCARDIAL INFARCTION TYPE 2 04/21/2020 [place] DO, JUAN MANUEL Ot I48.0 PAROXYSMAL ATRIAL FIBRILLATION 04/21/2020 [place] DO, JUAN MANUEL Ot I48.92 UNSPECIFIED ATRIAL FLUTTER 04/21/2020 [place] DO, JUAN MANUEL Ot K21.9 GASTRO-ESOPHAGEAL REFLUX DISEASE WITHOUT 04/21/2020 [place] DO, JUAN MANUEL Ot M19.91 PRIMARY OSTEOARTHRITIS, UNSPECIFIED SITE 04/21/2020 [place] DO, JUAN MANUEL Ot N12 TUBULO-INTERSTITIAL NEPHRITIS, NOT SPCF 04/21/2020 [place] DO, JUAN MANUEL Ot R41.0 DISORIENTATION, UNSPECIFIED 04/21/2020 [place] DO, JUAN MANUEL Ot Z79.01 [facility] (CURRENT) USE OF ANTICOAGULANT 04/21/2020 [place] DO, JUAN MANUEL Ot Z86.71 1 PERSONAL HISTORY OF PULMONARY EMBOLISM 04/21/2020 [place] DO, JUAN MANUEL Ot Z90.81 ACQUIRED ABSENCE OF SPLEEN 04/21/2020 [place] DO, JUAN MANUEL Ot Z98.1 ARTHRODESIS STATUS 04/21/2020 [place] DO, JUAN MANUEL Ot A41.51 SEPSIS DUE TO ESCHERICHIA COLI [E. COLI] 04/21/2020 [place] DO, JUAN MANUEL Ot B18.2 CHRONIC VIRAL HEPATITIS C 04/21/2020 [place] DO, JUAN MANUEL Ot C18.9 MALIGNANT NEOPLASM OF COLON, UNSPECIFIED 04/21/2020 [place] DO, JUAN MANUEL Ot E03.9 HYPOTHYROIDISM, UNSPECIFIED 04/21/2020 [place] DO, JUAN MANUEL Ot E78.5 HYPERLIPIDEMIA, UNSPECIFIED 04/21/2020 [place] DO, JUAN MANUEL Ot E87.2 ACIDOSIS 04/21/2020 [place] DO, JUAN MANUEL Ot F32.9 MAJOR DEPRESSIVE DISORDER, SINGLE EPISOD 04/21/2020 [place] DO, JUAN MANUEL Ot F41.9 ANXIETY DISORDER, UNSPECIFIED 04/21/2020 [place] DO, JUAN MANUEL Ot F60.3 BORDERLINE PERSONALITY DISORDER 04/21/2020 EVANS DO, JUAN MANUEL Ot G72.81 CRITICAL ILLNESS MYOPATHY 04/21/2020 EVANS DO, JUAN MANUEL Ot G89.4 CHRONIC PAIN SYNDROME 04/21/2020 EVANS DO, JUAN MANUEL Ot I10 ESSENTIAL (PRIMARY) HYPERTENSION 04/21/2020 EVANS DO, JUAN MANUEL Ot I21.A1 MYOCARDIAL INFARCTION TYPE 2 04/21/2020 EVANS DO, JUAN MANUEL Ot I48.0 PAROXYSMAL ATRIAL FIBRILLATION 04/21/2020 EVANS DO, JUAN MANUEL Ot I48.92 UNSPECIFIED ATRIAL FLUTTER 04/21/2020 EVANS DO, JUAN MANUEL Ot K21.9 GASTRO-ESOPHAGEAL REFLUX DISEASE WITHOUT 04/21/2020 EVANS DO, JUAN MANUEL Ot M19.91 PRIMARY OSTEOARTHRITIS, UNSPECIFIED SITE 04/21/2020 EVANS DO, JUAN MANUEL Ot N12 TUBULO-INTERSTITIAL NEPHRITIS, NOT SPCF 04/21/2020 EVANS DO, JUAN MANUEL Ot R41.0 DISORIENTATION, UNSPECIFIED 04/21/2020 EVANS DO, JUAN MANUEL Ot Z79.01 FPC (CURRENT) USE OF ANTICOAGULANT 04/21/2020 NATHAN MELCHOR JUAN MANUEL Ot Z86.71 1 PERSONAL HISTORY OF PULMONARY EMBOLISM 04/21/2020 EVANS DO, JUAN MANUEL Ot Z90.81 ACQUIRED ABSENCE OF SPLEEN 04/21/2020 EVANS DO, JUAN MANUEL Ot Z98.1 ARTHRODESIS STATUS 04/21/2020 EVANS DO, JUAN MANUEL Ot A41.51 SEPSIS DUE TO ESCHERICHIA COLI [E. COLI] 04/21/2020 EVANS DO, JUAN MANUEL Ot B18.2 CHRONIC VIRAL HEPATITIS C 04/21/2020 EVANS DO, JUAN MANUEL Ot C18.9 MALIGNANT NEOPLASM OF COLON, UNSPECIFIED 04/21/2020 EVANS DO, JUAN MANUEL Ot E03.9 HYPOTHYROIDISM, UNSPECIFIED 04/21/2020 EVANS DO, JUAN MANUEL Ot E78.5 HYPERLIPIDEMIA, UNSPECIFIED 04/21/2020 EVANS DO, JUAN MANUEL Ot E87.2 ACIDOSIS 04/21/2020 EVANS DO, JUAN MANUEL Ot F32.9 MAJOR DEPRESSIVE DISORDER, SINGLE EPISOD 04/21/2020 EVANS DO, JUAN MANUEL Ot F41.9 ANXIETY DISORDER, UNSPECIFIED 04/21/2020 EVANS DO, JUAN MANUEL Ot F60.3 BORDERLINE PERSONALITY DISORDER 04/21/2020 EVANS DO, JUAN MANUEL Ot G72.81 CRITICAL ILLNESS MYOPATHY 04/21/2020 EVANS DO, JUAN MANUEL Ot G89.4 CHRONIC PAIN SYNDROME 04/21/2020 EVANS DO, JUAN MANUEL Ot I10 ESSENTIAL (PRIMARY) HYPERTENSION 04/21/2020 EVANS DO, JUAN MANUEL Ot I21.A1 MYOCARDIAL INFARCTION TYPE 2 04/21/2020 EVANS DO, JUAN MANUEL Ot I48.0 PAROXYSMAL ATRIAL FIBRILLATION 04/21/2020 EVANS DO, JUAN MANUEL Ot I48.92 UNSPECIFIED ATRIAL FLUTTER 04/21/2020 EVANS DO, JUAN MANUEL Ot K21.9 GASTRO-ESOPHAGEAL REFLUX DISEASE WITHOUT 04/21/2020 EVANS DO, JUAN MANUEL Ot M19.91 PRIMARY OSTEOARTHRITIS, UNSPECIFIED SITE 04/21/2020 EVANS DO, JUAN MANUEL Ot N12 TUBULO-INTERSTITIAL NEPHRITIS, NOT SPCF 04/21/2020 EVANS DO, JUAN MANUEL Ot R41.0 DISORIENTATION, UNSPECIFIED 04/21/2020 EVANS DO, JUAN MANUEL Ot 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 COLI] 04/21/2020 EVANS DO, JUAN MANUEL Ot B18.2 CHRONIC VIRAL HEPATITIS C 04/21/2020 EVANS DO, JUAN MANUEL Ot C18.9 MALIGNANT NEOPLASM OF COLON, UNSPECIFIED 04/21/2020 EVANS DO, JUAN MANUEL Ot E03.9 HYPOTHYROIDISM, UNSPECIFIED 04/21/2020 EVANS DO, JUAN MANUEL Ot E78.5 HYPERLIPIDEMIA, UNSPECIFIED 04/21/2020 EVANS DO, JUAN MANUEL Ot E87.2 ACIDOSIS 04/21/2020 EVANS DO JUAN MANUEL Ot F32.9 MAJOR DEPRESSIVE DISORDER, SINGLE EPISOD 04/21/2020 EVANS DO, JUAN MANUEL Ot F41.9 ANXIETY DISORDER, UNSPECIFIED 04/21/2020 EVANS DO JUAN MANUEL Ot F60.3 BORDERLINE PERSONALITY DISORDER 04/21/2020 EVANS DO, JUAN MANUEL Ot G72.81 CRITICAL ILLNESS MYOPATHY 04/21/2020 EVANSPAUL MELCHOR JUAN MANUEL Ot G89.4 CHRONIC PAIN SYNDROME 04/21/2020 EVANS DO JUAN MANUEL Ot I10 ESSENTIAL (PRIMARY) HYPERTENSION 04/21/2020 EVANS DO JUAN MANUEL Ot I21.A1 MYOCARDIAL INFARCTION TYPE 2 04/21/2020 EVANS DO JUAN MANUEL Ot I48.0 PAROXYSMAL ATRIAL FIBRILLATION 04/21/2020 EVANS DO JUAN MANUEL Ot I48.92 UNSPECIFIED ATRIAL FLUTTER 04/21/2020 EVANS DO JUAN MANULE Ot K21.9 GASTRO-ESOPHAGEAL REFLUX DISEASE WITHOUT 04/21/2020 EVANSPAUL MELCHOR JUAN MANUEL Ot M19.91 PRIMARY OSTEOARTHRITIS, UNSPECIFIED SITE 04/21/2020 EVANS DO JUAN MANUEL Ot N12 TUBULO-INTERSTITIAL NEPHRITIS, NOT SPCF 04/21/2020 EVANS DO JUAN MANUEL Ot R41.0 DISORIENTATION, UNSPECIFIED 04/21/2020 EVANSPAUL MELCHOR JUAN MANUEL Ot 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 04/21/2020 NATHAN MELCHOR JUAN MANUEL Ot Z86.71 1 PERSONAL HISTORY OF PULMONARY EMBOLISM 04/21/2020 NATHAN MELCHOR JUAN MANUEL Ot Z90.81 ACQUIRED ABSENCE OF SPLEEN 04/21/2020 NATHAN MELCHOR JUAN MANUEL Ot Z98.1 ARTHRODESIS STATUS Procedures Code Description Performed By Per tad On 45.23 COLO NOSCOPY 02/16/2011 86.22 EXCI S DEBRIDE OF WOUND, INFECT, OR BURN 02/18/2011 86.04 OTHE R SKIN SUBQ I D 03/23/2011 61082 PSYC H IND W/MED CK 20 09/06/2012 40314 ROUT INE VENIPUNCTURE 02/13/2014 91185 INR (IN HOUSE) 02/13/2014 59008 CBC 02/13/2014 61346 CMP 02/13/2014 [id number] GF R CALC (RESULT ONLY) 02/13/2014 27301 SONDRA MIN D 25-HYDROXY (D2,D3, TOTAL) 02/13/2014 75686 VIT B 12 02/13/2014 22430 TSH 02/13/2014 TESTFRTOT TESTOSTERONE FREE AND TOTAL MALE 02/13/2014 13499 ROUT INE VENIPUNCTURE 02/19/2014 04756 LIPI D PANEL 02/19/2014 J1080 Depo -Testosterone 200 mg/mL oil 03/12/2014 57747 THER APUTIC INJ SQ/IM 04/11/2014 90362 THER APUTIC INJ SQ/IM 05/08/2014 53621 THER APUTIC INJ SQ/IM 06/20/2014 77621 THER APUTIC INJ SQ/IM 06/20/2014 80098 ROUT INE VENIPUNCTURE 06/21/2014 76268 UA L PRABHAKAR DIP 06/21/2014 TESTFRTOT TESTOSTERONE FREE AND TOTAL MALE 06/22/2014 35440 TEST OSTERONE TOTAL MALES 07/23/2014 06691 THER APUTIC INJ SQ/IM 07/23/2014 J1080 Depo -Testosterone 200 mg/mL oil 07/23/2014 89964 THER APUTIC INJ SQ/IM 08/20/2014 76190 THER APUTIC INJ SQ/IM 09/27/2014 16552 AMERITOX 11/05/2014 00041 THER APUTIC INJ SQ/IM 12/21/2014 99.61 ATRI AL CARDIOVERSION 02/17/2015 37.22 LEFT HEART CARDIAC CATH 02/18/2015 88.42 CONT RAST AORTOGRAM 02/18/2015 88.53 LT H EART ANGIOCARDIOGRAM 02/18/2015 88.56 ZACKERY WILLIAM ARTERIOGR-2 CATH 02/18/2015 [id number] ME ASURE OF CARDIAC SAMPL PRESSURE, L H 09/24/2017 [id number] FL UOROSCOPY OF MULT COR ART USING L OSM 09/24/2017 [id number] FL UOROSCOPY OF LEFT HEART USING LOW OSMO 09/24/2017 [id number] ME ASURE OF CARDIAC SAMPL PRESSURE, L H 10/13/2018 [id number] FL UOROSCOPY OF MULT COR ART USING L OSM 10/13/2018 [id number] FL UOROSCOPY OF LEFT HEART USING LOW OSMO 10/13/2018 [id number] FL UOROSCOPY OF THORACIC AORTA USING LOW 10/13/2018 [id number] IN SERTION OF ENDOTRACHEAL AIRWAY INTO TR 03/13/2020 [id number] RE SPIRATORY VENTILATION, 24- 96 CONSECUTI 03/13/2020 [...] coagulation assay See Footnote NR Prothrombin gene [id number] mutation detect ion - 08/23/17 11:01 Prothrombin gene [id number] mutation detection See fo otnote [facility] Comprehensive metabolic panel - 09/01/17 [...] detection by PCR with reflex to quantitation [id number] <=11 HEPATITIS C GENOTYPE - 11/12/17 11:55 [...] CORRECTED 10.1 mg/dL 8.5-10.1 Serum or plasma nvfse-7-tkkfgqmzpxl.tumo r marker measurement (mass/volume) - 06/24/18 12:38 Serum or plasma surco-2-hjyqlqylzex.tumo r marker measurement (mass/volume) 6.0 % 0.0-8.8 [...] volume) 1.12 ng/dL 0.70-1.48 Serum or plasma kiywi-3-diptwebrfpq.tumo r marker measurement (mass/volume) - 10/04/18 10:34 Serum or plasma eojoq-5-sdfgqarxupj.tumo r marker measurement (mass/volume) 6.0 % 0.0-8.8 [...] Negative Urine-Blood Negative Negative Urine-Color Yellow Colorless-[place] Urine-Glucose Negative Negative Urine-Ketones Negative Negative Urine-Leukocytes Negative Negative Urine-Mucus 1+ Urine-Nitrite Negative Negative Urine-Other Urine Saved if Culture Need ed (48hrs from time of collection) Urine-pH 5.5 5-8.5 Urine-Protein Negative Negative Urine-RBC Negative Urine-Specific [place] 1.010 1.000-1 .030 Urine-WBC Rare/HPF Urobilinogen 0.2 [...] 7-25 CREATININE 1.49 mg/dL 0.70-1.25 eGFR NON-AFR. SPANISH 50 mL/min/1.73m2 > OR = 60 eGFR [...] Ab, Quant, IgM <0.80 index 0.00-0.79 Jannet Hin Spotted Fev, IgG, Qn - 9 04:53 [...] Negative Urine-Blood Negative Negative Urine-Color Yellow Colorless-[place] Urine-Epithelial Cells 0-5/HPF Urine-Glucose Negative Negative Urine-Ketones Negative Negative Urine-Leukocytes Negative Negative Urine-Mucus 1+ Urine-Nitrite Negative Negative Urine-Other Urine Saved if Culture Need ed (48hrs from time of collection) Urine-pH 6.0 5-8.5 Urine-Protein Trace Negative Urine-RBC 0-2/HPF Urine-Specific [place] 1.015 1.000-1 .030 Urine-WBC 0-2/HPF Urobilinogen 0.2 [...] finding identification by light micr oscopy OK [facility] Comprehensive metabolic panel - 01/17/20 [...] culture - 03/11/20 21:05 Bacterial urine culture [id number] NRG COLONY COUNT >100,000/ML NRG SUSCEPTIBILITY SUSCEPTIBILITY REPORTED 03/13/20 12: 20 NRG RAPID ID PRELIM RAPID ID TEST AT [facility] 03/12 07:30 NRG ID CONFIRMATION RML [...] culture SEE COMMEN NRG Coronavirus SARS-CoV-2 SO 2018 - 0 21:35 Coronavirus Ab [Units/volume] in [...] Staphylococcus aureus (MRSA) scr eening culture NEG [facility] Bacterial blood culture - 03/12/20 08:35 Bacterial blood culture NG [facility] Bacterial blood culture - 03/12/20 08:38 QUANTITY OF GROWTH . [facility] Bacterial blood culture SEE COMMEN [facility] Bacterial blood culture - 03/12/20 18:00 Bacterial blood culture NG [facility] Whole blood basic metabolic panel [...] OF GROWTH Isolated NRG Bacterial blood culture [id number] NRG SUSCEPTIBILITY SUSCEPTIBILITY REPORTED 03/16 10:45 NRG [...] GOLD QUANTIFERON PLUS - 03/13/20 08:4 0 [id number] 0.00 [iU]/mL 0.00-0.34 QuantiFERON-TB test Negative Negative [...] culture - 03/30/20 04:15 Bacterial urine culture [id number] NRG COLONY COUNT >100,000/ML NRG SUSCEPTIBILITY SUSCEPTIBILITY REPORTED 03-31-20, 17 05 NRG Dirithromycin susceptibility test by dis [...] culture - 03/30/20 11:15 Bacterial urine culture [id number] NRG COLONY COUNT >100,000/ML NRG SUSCEPTIBILITY REFER [...] 109 mmol/L 98-107 Carbon dioxide 21 mmol/L -32 Serum or plasma anion gap [...] Negative Urine-Blood Negative Negative Urine-Color Yellow Colorless-[place] Urine-Epithelial Cells 0-5/HPF Urine-Glucose Negative Negative Urine-Ketones Negative Negative Urine-Leukocytes 1+ Negative Urine-Nitrite Negative Negative Urine-Other Urine Saved if Culture Need ed (48hrs from time of collection) Urine-pH 7.5 5-8.5 Urine-Protein Negative Negative Urine-RBC 2-5/HPF Urine-Specific [place] 1.015 1.000-1 .030 Urine-WBC 2-5/HPF Urobilinogen 0.2 E.U./dL 0.2-1.0 Complete blood count (CBC) with automate d white blood cell (WBC) differential - 04/06/20 18:45 Blood leukocytes automated count (number/volume) 7.3 10*3/uL 4.3-11.0 Blood erythrocytes automated count (number/volume) 4.24 10*6/uL 4.35-5.85 Venous blood hemoglobin measurement (mass/volume) 11.6 g/dL 13.3-17.7 Blood hematocrit (volume fraction) 35 % 40-54 Automated erythrocyte mean corpuscular volume 82 [ foz_us] 80-99 Automated erythrocyte mean corpuscular h emoglobin (mass per erythrocyte) 27 pg 25-34 Automated erythrocyte mean corpuscular h emoglobin concentration measurement (mass/volume) 33 g/dL 32-36 Automated erythrocyte distribution width ratio 15. 3 % 10.0- 14.5 Automated blood platelet count (count/volume) 617 10*3/uL 130-400 Automated blood platelet mean volume measurement 9.9 [foz_us] 7.4-10.4 Automated blood neutrophils/100 leukocytes 65 % 42-75 Automated blood lymphocytes/100 leukocytes 20 % 12-44 Blood monocytes/100 leukocytes 12 % 0-12 Automated blood eosinophils/100 leukocytes 2 % 0-10 Automated blood basophils/100 leukocytes 1 % 0-10 Blood neutrophils automated count (number/volume) 4.7 10*3 1.8-7.8 Blood lymphocytes automated count (number/volume) 1.5 10*3 1.0-4.0 Blood monocytes automated count (number/volume) 0. 9 10*3 0.0-1.0 Automated eosinophil count 0.2 10*3/uL 0 .0-0.3 Automated blood basophil count (count/volume) 0.1 10*3/uL 0.0-0.1 Blood lactic acid measurement (moles/vol ume) - 04/06/20 18:45 Blood lactic acid measurement (moles/volume) 2.48 mmol/L 0.50-2.00 Comprehensive metabolic panel - 04/06/20 18:45 Serum or plasma sodium measurement (moles/volume) 142 mmol/L 135-145 Serum or plasma potassium measurement (moles/volume) 3.9 mmol/L 3.6-5.0 Serum or plasma chloride measurement (moles/volume) 105 mmol/L 98-107 Carbon dioxide 23 mmol/L 21-32 Serum or plasma anion gap determination (moles/volume) 14 mmol/L 5-14 Serum or plasma urea nitrogen measurement (mass/volume ) 11 mg/dL 7-18 Serum or plasma creatinine measurement (mass/volume) 1.34 mg/dL 0.60-1.30 Serum or plasma urea nitrogen/creatinine mass ratio 8 NRG Serum or plasma creatinine measurement w ith calculation of estimated glomerular filtration rate 54 NRG Serum or plasma glucose measurement (mass/volume) 105 mg/dL 70-105 Serum or plasma calcium measurement (mass/volume) 10.0 mg/dL 8.5-10.1 Serum or plasma total bilirubin measurement (mass/volu me) 0.3 mg/dL 0.1-1.0 Serum or plasma alkaline phosphatase javon surement (enzymatic activity/volume) 105 U/L 40-136 Serum or plasma aspartate aminotransfera se measurement (enzymatic activity/volume) 16 U/L 5-34 Serum or plasma alanine aminotransferase measurement (enzymatic activity/volume) 19 U/L 0-55 Serum or plasma protein measurement (mass/volume) 6.6 g/dL 6.4-8.2 Serum or plasma albumin measurement (mass/volume) 3.9 g/dL 3.2-4.5 CALCIUM CORRECTED 10.1 mg/dL 8.5-10.1 Magnesium - 04/06/20 18:45 Magnesium 1.7 mg/dL 1.6-2.4 TROPONIN I FS - 04/06/20 18:45 TROPONIN I FS < 0.30 <0.30 PROBNP FS - 04/06/20 18:45 PROBNP FS 1645.0 pg/mL <75.0 Bacterial blood culture - 04/06/20 19:26 QUANTITY OF GROWTH . NRG Bacterial blood culture SEE COMMEN NRG SUSCEPTIBILITY RML REPORTED ID 04/09 11:05 NRG MRSA SCREEN PRELIM RAPID ID OF PROBABLE COAG NRG RAPID ID KU 04/08 14:45, BY Venkatesh DAS NRG MRSA CONFIRMATION NEGATIVE STAPH REPORTED TO ALLIS ON AT NRG Bacterial blood culture - 04/06/20 19:35 Bacterial blood culture NG NRG Serum or plasma lactate measurement (mol es/volume) - 04/06/20 20:45 Serum or plasma lactate measurement (moles/volume) 0.90 mmol/L 0.50-2.00 Complete blood count (CBC) with automate d white blood cell (WBC) differential - 04/26/20 23:00 Blood leukocytes automated count (number/volume) 11.0 10*3/uL 4.3-11.0 Blood erythrocytes automated count (number/volume) 4.47 10*6/uL 4.35-5.85 Venous blood hemoglobin measurement (mass/volume) 11.9 g/dL 13.3-17.7 Blood hematocrit (volume fraction) 36 % 40-54 Automated erythrocyte mean corpuscular volume 80 [ foz_us] 80-99 Automated erythrocyte mean corpuscular h emoglobin (mass per erythrocyte) 27 pg 25-34 Automated erythrocyte mean corpuscular h emoglobin concentration measurement (mass/volume) 33 g/dL 32-36 Automated erythrocyte distribution width ratio 15. 3 % 10.0- 14.5 Automated blood platelet count (count/volume) 583 10*3/uL 130-400 Automated blood platelet mean volume measurement 10.0 [foz_us] 7.4-10.4 Automated blood neutrophils/100 leukocytes 70 % 42-75 Automated blood lymphocytes/100 leukocytes 16 % 12-44 Blood monocytes/100 leukocytes 10 % 0-12 Automated blood eosinophils/100 leukocytes 3 % 0-10 Automated blood basophils/100 leukocytes 1 % 0-10 Blood neutrophils automated count (number/volume) 7.7 10*3 1.8-7.8 Blood lymphocytes automated count (number/volume) 1.8 10*3 1.0-4.0 Blood monocytes automated count (number/volume) 1. 1 10*3 0.0-1.0 Automated eosinophil count 0.4 10*3/uL 0 .0-0.3 Automated blood basophil count (count/volume) 0.1 10*3/uL 0.0-0.1 PT panel in platelet poor plasma by coag ulation assay - 04/26/20 23:00 Prothrombin time (PT) in platelet poor plasma by coagu lation assay 15.6 s 12.2-14.7 INR in platelet poor plasma or blood by coagulation as say 1.2 0.8-1.4 Activated partial thromboplastin time (a PTT) in platelet poor plasma bycoagulation assay - 04/26/20 23:00 Activated partial thromboplastin time (a PTT) in platelet poor plasma bycoagulation assay 31 s 24-35 Fibrin D-dimer FEU measurement in platel et poor plasma (mass/volume) - 04/26/20 23:00 Fibrin D-dimer FEU measurement in platelet poor plasma (mass/volume) 0.51 ug/mL 0.00-0.49 Erythrocyte sedimentation rate by katia gren method - 04/26/20 23:00 Erythrocyte sedimentation rate by westergren method 30 mm 0- 30 Comprehensive metabolic panel - 04/26/20 23:00 Serum or plasma sodium measurement (moles/volume) 140 [...] plasma alkaline phosphatase javon surement (enzymatic activity/volume) 112 U/L 40-136 Serum or plasma aspartate aminotransfera se measurement (enzymatic activity/volume) 14 U/L 5-34 Serum or plasma alanine aminotransferase measurement (enzymatic activity/volume) 13 U/L 0-55 Serum or plasma protein measurement (mass/volume) 6.5 g/dL 6.4-8.2 Serum or plasma albumin measurement (mass/volume) 3.8 g/dL 3.2-4.5 CALCIUM CORRECTED 9.7 mg/dL 8.5-10.1 Magnesium - 04/26/20 23:00 Magnesium 1.9 mg/dL 1.6-2.4 Myoglobin, serum - 04/26/20 23:00 Myoglobin, serum 36.8 ng/mL 10.0-92.0 Serum ragweed IgE antibody assay - 04/26 23:00 Serum ragweed IgE antibody assay 155 U/L 125-220 PROCALCITONIN (PCT) - 04/26/20 23:00 PROCALCITONIN (PCT) 0.03 ng/mL <0.10 Serum or plasma troponin i.cardiac measu rement (mass/volume) - 04/26/20 23:00 Serum or plasma troponin i.cardiac measurement (mass/v olume) 0.109 ng/mL <0.028 Serum or plasma C reactive protein measu rement (mass/volume) - 04/26/20 23:00 Serum or plasma C reactive protein measurement (mass/v olume) 1.27 mg/dL 0.00-0.50 Complete blood count (CBC) with automate d white blood cell (WBC) differential - 04/27/20 04:55 Blood leukocytes automated count (number/volume) 10.3 10*3/uL 4.3-11.0 Blood erythrocytes automated count (number/volume) 4.06 10*6/uL 4.35-5.85 Venous blood hemoglobin measurement (mass/volume) 10.8 g/dL 13.3-17.7 Blood hematocrit (volume fraction) 33 % 40-54 Automated erythrocyte mean corpuscular volume 80 [ foz_us] 80-99 Automated erythrocyte mean corpuscular h emoglobin (mass per erythrocyte) 27 pg 25-34 Automated erythrocyte mean corpuscular h emoglobin concentration measurement (mass/volume) 33 g/dL 32-36 Automated erythrocyte distribution width ratio 14. 9 % 10.0- 14.5 Automated blood platelet count (count/volume) 562 10*3/uL 130-400 Automated blood platelet mean volume measurement 10.3 [foz_us] 7.4-10.4 Automated blood neutrophils/100 leukocytes 67 % 42-75 Automated blood lymphocytes/100 leukocytes 15 % 12-44 Blood monocytes/100 leukocytes 12 % 0-12 Automated blood eosinophils/100 leukocytes 5 % 0-10 Automated blood basophils/100 leukocytes 1 % 0-10 Blood neutrophils automated count (number/volume) 6.9 10*3 1.8-7.8 Blood lymphocytes automated count (number/volume) 1.6 10*3 1.0-4.0 Blood monocytes automated count (number/volume) 1. 2 10*3 0.0-1.0 Automated eosinophil count 0.5 10*3/uL 0 .0-0.3 Automated blood basophil count (count/volume) 0.1 10*3/uL 0.0-0.1 Comprehensive metabolic panel - 04/27/20 04:55 Serum or plasma sodium measurement (moles/volume) 141 mmol/L 135-145 Serum or plasma potassium measurement (moles/volume) 3.2 mmol/L 3.6-5.0 Serum or plasma chloride measurement (moles/volume) 109 mmol/L 98-107 Carbon dioxide 22 mmol/L 21-32 Serum or plasma anion gap determination (moles/volume) 10 mmol/L 5-14 Serum or plasma urea nitrogen measurement (mass/volume ) 13 mg/dL 7-18 Serum or plasma creatinine measurement (mass/volume) 1.06 mg/dL 0.60-1.30 Serum or plasma urea nitrogen/creatinine [...] plasma alkaline phosphatase javon surement (enzymatic activity/volume) 102 U/L 40-136 Serum or plasma aspartate aminotransfera se measurement (enzymatic activity/volume) 12 U/L 5-34 Serum or plasma alanine aminotransferase measurement (enzymatic activity/volume) 12 U/L 0-55 Serum or plasma protein measurement (mass/volume) 6.2 g/dL 6.4-8.2 Serum or plasma albumin measurement (mass/volume) 3.5 g/dL 3.2-4.5 CALCIUM CORRECTED 9.5 mg/dL 8.5-10.1 Lipid 1996 panel - 04/27/20 04:55 Serum or plasma triglyceride measurement (mass/volume) 72 mg/dL <150 Serum or plasma cholesterol measurement (mass/volume) 124 mg/dL < 200 Serum or plasma cholesterol in HDL measurement (mass/v olume) 30 mg/dL 40-60 Cholesterol in LDL [mass/volume] in serum or plasma by direct assay 74 mg/dL 1-129 Serum or plasma cholesterol in VLDL measurement (mass/ volume) 14 mg/dL 5-40 Serum or plasma troponin i.cardiac measu rement (mass/volume) - 04/27/20 04:55 Serum or plasma troponin i.cardiac measurement (mass/v olume) 0.123 ng/mL <0.028 Serum ragweed IgE antibody assay - 04/27 04:55 Serum ragweed IgE antibody assay 11.0 % 3.7-19.4 Complete blood count (CBC) with automate d white blood cell (WBC) differential - 04/28/20 04:45 Blood leukocytes automated count (number/volume) 9.0 10*3/uL 4.3-11.0 Blood erythrocytes automated count (number/volume) 3.70 10*6/uL 4.35-5.85 Venous blood hemoglobin measurement (mass/volume) 10.0 g/dL 13.3-17.7 Blood hematocrit (volume fraction) 30 % 40-54 Automated erythrocyte mean corpuscular volume 81 [ foz_us] 80-99 Automated erythrocyte mean corpuscular h emoglobin (mass per erythrocyte) 27 pg 25-34 Automated erythrocyte mean corpuscular h emoglobin concentration measurement (mass/volume) 33 g/dL 32-36 Automated erythrocyte distribution width ratio 15. 3 % 10.0- 14.5 Automated blood platelet count (count/volume) 499 10*3/uL 130-400 Automated blood platelet mean volume measurement 9.8 [foz_us] 7.4-10.4 Automated blood neutrophils/100 leukocytes 56 % 42-75 Automated blood lymphocytes/100 leukocytes 20 % 12-44 Blood monocytes/100 leukocytes 14 % 0-12 Automated blood eosinophils/100 leukocytes 10 % 0-10 Automated blood basophils/100 leukocytes 1 % 0-10 Blood neutrophils automated count (number/volume) 5.1 10*3 1.8-7.8 Blood lymphocytes automated count (number/volume) 1.8 10*3 1.0-4.0 Blood monocytes automated count (number/volume) 1. 2 10*3 0.0-1.0 Automated eosinophil count 0.9 10*3/uL 0 .0-0.3 Automated blood basophil count (count/volume) 0.1 10*3/uL 0.0-0.1 Whole blood basic metabolic panel - 06/09 04:45 Serum or plasma sodium measurement (moles/volume) 137 mmol/L 135-145 Serum or plasma potassium measurement (moles/volume) 3.8 mmol/L 3.6-5.0 Serum or plasma chloride measurement (moles/volume) 107 mmol/L 98-107 Carbon dioxide 24 mmol/L 21-32 Serum or plasma anion gap determination (moles/volume) 6 mmol/L 5-14 Serum or plasma urea nitrogen measurement (mass/volume ) 11 mg/dL 7-18 Serum or plasma creatinine measurement (mass/volume) 1.02 mg/dL 0.60-1.30 Serum or plasma urea nitrogen/creatinine mass ratio 11 NRG Serum or plasma creatinine measurement w ith calculation of estimated glomerular filtration rate > NRG Serum or plasma glucose measurement (mass/volume) 103 mg/dL 70-105 Serum or plasma calcium measurement (mass/volume) 8.5 mg/dL 8.5-10.1 Magnesium - 04/28/20 04:45 Magnesium 1.8 mg/dL 1.6-2.4 Complete blood count (CBC) with automate d white blood cell (WBC) differential - 04/29/20 04:37 Blood leukocytes automated count (number/volume) 10.3 10*3/uL 4.3-11.0 Blood erythrocytes automated count (number/volume) 3.74 10*6/uL 4.35-5.85 Venous blood hemoglobin measurement (mass/volume) 9.9 g/dL 13.3-17.7 Blood hematocrit (volume fraction) 31 % 40-54 Automated erythrocyte mean corpuscular volume 82 [ foz_us] 80-99 Automated erythrocyte mean corpuscular h emoglobin (mass per erythrocyte) 27 pg 25-34 Automated erythrocyte mean corpuscular h emoglobin concentration measurement (mass/volume) 32 g/dL 32-36 Automated erythrocyte distribution width ratio 15. 0 % 10.0- 14.5 Automated blood platelet count (count/volume) 498 10*3/uL 130-400 Automated blood platelet mean volume measurement 10.6 [foz_us] 7.4-10.4 Automated blood neutrophils/100 leukocytes 66 % 42-75 Automated blood lymphocytes/100 leukocytes 11 % 12-44 Blood monocytes/100 leukocytes 13 % 0-12 Automated blood eosinophils/100 leukocytes 9 % 0-10 Automated blood basophils/100 leukocytes 1 % 0-10 Blood neutrophils automated count (number/volume) 6.8 10*3 1.8-7.8 Blood lymphocytes automated count (number/volume) 1.2 10*3 1.0-4.0 Blood monocytes automated count (number/volume) 1. 4 10*3 0.0-1.0 Automated eosinophil count 1.0 10*3/uL 0 .0-0.3 Automated blood basophil count (count/volume) 0.1 10*3/uL 0.0-0.1 Whole blood basic metabolic panel - 04/20 04:57 Serum or plasma sodium measurement (moles/volume) 140 mmol/L 135-145 Serum or plasma potassium measurement (moles/volume) 4.2 mmol/L 3.6-5.0 Serum or plasma chloride measurement (moles/volume) 109 mmol/L 98-107 Carbon dioxide 24 mmol/L 21-32 Serum or plasma anion gap determination (moles/volume) 7 mmol/L 5-14 Serum or plasma urea nitrogen measurement (mass/volume ) 12 mg/dL 7-18 Serum or plasma creatinine measurement (mass/volume) 1.24 mg/dL 0.60-1.30 Serum or plasma urea nitrogen/creatinine mass ratio 10 NRG Serum or plasma creatinine measurement w ith calculation of estimated glomerular filtration rate 59 NRG Serum or plasma glucose measurement (mass/volume) 89 mg/dL 70-105 Serum or plasma calcium measurement (mass/volume) 8.3 mg/dL 8.5-10.1 Magnesium - 04/29/20 04:57 Magnesium 1.9 mg/dL 1.6-2.4 Complete blood count (CBC) with automate d white blood cell (WBC) differential - 04/30/20 04:55 Blood leukocytes automated count (number/volume) 10.5 10*3/uL 4.3-11.0 Blood erythrocytes automated count (number/volume) 3.78 10*6/uL 4.35-5.85 Venous blood hemoglobin measurement (mass/volume) 10.1 g/dL 13.3-17.7 Blood hematocrit (volume fraction) 31 % 40-54 Automated erythrocyte mean corpuscular volume 82 [ foz_us] 80-99 Automated erythrocyte mean corpuscular h emoglobin (mass per erythrocyte) 27 pg 25-34 Automated erythrocyte mean corpuscular h emoglobin concentration measurement (mass/volume) 33 g/dL 32-36 Automated erythrocyte distribution width ratio 15. 2 % 10.0- 14.5 Automated blood platelet count (count/volume) 500 10*3/uL 130-400 Automated blood platelet mean volume measurement 10.1 [foz_us] 7.4-10.4 Automated blood neutrophils/100 leukocytes 64 % 42-75 Automated blood lymphocytes/100 leukocytes 14 % 12-44 Blood monocytes/100 leukocytes 16 % 0-12 Automated blood eosinophils/100 leukocytes 6 % 0-10 Automated blood basophils/100 leukocytes 0 % 0-10 Blood neutrophils automated count (number/volume) 6.7 10*3 1.8-7.8 Blood lymphocytes automated count (number/volume) 1.4 10*3 1.0-4.0 Blood monocytes automated count (number/volume) 1. 6 10*3 0.0-1.0 Automated eosinophil count 0.7 10*3/uL 0 .0-0.3 Automated blood basophil count (count/volume) 0.0 10*3/uL 0.0-0.1 Comprehensive metabolic panel - 04/30/20 04:55 Serum or plasma sodium measurement (moles/volume) 138 mmol/L 135-145 Serum or plasma potassium measurement (moles/volume) 4.0 mmol/L 3.6-5.0 Serum or plasma chloride measurement (moles/volume) 106 mmol/L 98-107 Carbon dioxide 24 mmol/L 21-32 Serum or plasma anion gap determination (moles/volume) 8 mmol/L 5-14 Serum or plasma urea nitrogen measurement (mass/volume ) 11 mg/dL 7-18 Serum or plasma creatinine measurement (mass/volume) 1.17 mg/dL 0.60-1.30 Serum or plasma urea nitrogen/creatinine mass ratio 9 NRG Serum or plasma creatinine measurement w ith calculation of estimated glomerular filtration rate > NRG Serum or plasma glucose measurement (mass/volume) 117 mg/dL 70-105 Serum or plasma calcium measurement (mass/volume) 8.4 mg/dL 8.5-10.1 Serum or plasma total bilirubin measurement (mass/volu me) 0.3 mg/dL 0.1-1.0 Serum or plasma alkaline phosphatase javon surement (enzymatic activity/volume) 98 U/L 40-136 Serum or plasma aspartate aminotransfera se measurement (enzymatic activity/volume) 12 U/L 5-34 Serum or plasma alanine aminotransferase measurement (enzymatic activity/volume) 12 U/L 0-55 Serum or plasma protein measurement (mass/volume) 6.0 g/dL 6.4-8.2 Serum or plasma albumin measurement (mass/volume) 3.4 g/dL 3.2-4.5 CALCIUM CORRECTED 8.9 mg/dL 8.5-10.1 Complete blood count (CBC) with automate d white blood cell (WBC) differential - 05/01/20 04:42 Blood leukocytes automated count (number/volume) 8.8 10*3/uL 4.3-11.0 Blood erythrocytes automated count (number/volume) 3.50 10*6/uL 4.35-5.85 Venous blood hemoglobin measurement (mass/volume) 9.4 g/dL 13.3-17.7 Blood hematocrit (volume fraction) 29 % 40-54 Automated erythrocyte mean corpuscular volume 82 [ foz_us] 80-99 Automated erythrocyte mean corpuscular h emoglobin (mass per erythrocyte) 27 pg 25-34 Automated erythrocyte mean corpuscular h emoglobin concentration measurement (mass/volume) 33 g/dL 32-36 Automated erythrocyte distribution width ratio 15. 4 % 10.0- 14.5 Automated blood platelet count (count/volume) 459 10*3/uL 130-400 Automated blood platelet mean volume measurement 10.5 [foz_us] 7.4-10.4 Automated blood neutrophils/100 leukocytes 58 % 42-75 Automated blood lymphocytes/100 leukocytes 16 % 12-44 Blood monocytes/100 leukocytes 18 % 0-12 Automated blood eosinophils/100 leukocytes 8 % 0-10 Automated blood basophils/100 leukocytes 0 % 0-10 Blood neutrophils automated count (number/volume) 5.1 10*3 1.8-7.8 Blood lymphocytes automated count (number/volume) 1.4 10*3 1.0-4.0 Blood monocytes automated count (number/volume) 1. 6 10*3 0.0-1.0 Automated eosinophil count 0.7 10*3/uL 0 .0-0.3 Automated blood basophil count (count/volume) 0.0 10*3/uL 0.0-0.1 Comprehensive metabolic panel - 05/01/20 04:42 Serum or plasma sodium measurement (moles/volume) 141 mmol/L 135-145 Serum or plasma potassium measurement (moles/volume) 3.8 mmol/L 3.6-5.0 Serum or plasma chloride measurement (moles/volume) 110 mmol/L 98-107 Carbon dioxide 23 mmol/L 21-32 Serum or plasma anion gap determination (moles/volume) 8 mmol/L 5-14 Serum or plasma urea nitrogen measurement (mass/volume ) 9 mg/dL 7-18 Serum or plasma creatinine measurement (mass/volume) 0.93 mg/dL 0.60-1.30 Serum or plasma urea nitrogen/creatinine mass ratio 10 NRG Serum or plasma creatinine measurement w ith calculation of estimated glomerular filtration rate > NRG Serum or plasma glucose measurement (mass/volume) 81 mg/dL 70-105 Serum or plasma calcium measurement (mass/volume) 8.3 mg/dL 8.5-10.1 Serum or plasma total bilirubin measurement (mass/volu me) 0.4 mg/dL 0.1-1.0 Serum or plasma alkaline phosphatase javon surement (enzymatic activity/volume) 91 U/L 40-136 Serum or plasma aspartate aminotransfera se measurement (enzymatic activity/volume) 12 U/L 5-34 Serum or plasma alanine aminotransferase measurement (enzymatic activity/volume) 11 U/L 0-55 Serum or plasma protein measurement (mass/volume) 5.4 g/dL 6.4-8.2 Serum or plasma albumin measurement (mass/volume) 3.0 g/dL 3.2-4.5 CALCIUM CORRECTED 9.1 mg/dL 8.5-10.1 Complete blood count (CBC) with automate d white blood cell (WBC) differential - 05/02/20 05:10 Blood leukocytes automated count (number/volume) 8.3 10*3/uL 4.3-11.0 Blood erythrocytes automated count (number/volume) 3.40 10*6/uL 4.35-5.85 Venous blood hemoglobin measurement (mass/volume) 9.0 g/dL 13.3-17.7 Blood hematocrit (volume fraction) 28 % 40-54 Automated erythrocyte mean corpuscular volume 82 [ foz_us] 80-99 Automated erythrocyte mean corpuscular h emoglobin (mass per erythrocyte) 27 pg 25-34 Automated erythrocyte mean corpuscular h emoglobin concentration measurement (mass/volume) 32 g/dL 32-36 Automated erythrocyte distribution width ratio 15. 2 % 10.0- 14.5 Automated blood platelet count (count/volume) 418 10*3/uL 130-400 Automated blood platelet mean volume measurement 10.4 [foz_us] 7.4-10.4 Automated blood neutrophils/100 leukocytes 59 % 42-75 Automated blood lymphocytes/100 leukocytes 16 % 12-44 Blood monocytes/100 leukocytes 15 % 0-12 Automated blood eosinophils/100 leukocytes 9 % 0-10 Automated blood basophils/100 leukocytes 1 % 0-10 Blood neutrophils automated count (number/volume) 4.9 10*3 1.8-7.8 Blood lymphocytes automated count (number/volume) 1.3 10*3 1.0-4.0 Blood monocytes automated count (number/volume) 1. 3 10*3 0.0-1.0 Automated eosinophil count 0.8 10*3/uL 0 .0-0.3 Automated blood basophil count (count/volume) 0.1 10*3/uL 0.0-0.1 Comprehensive metabolic panel - 05/02/20 05:10 Serum or plasma sodium measurement (moles/volume) 141 mmol/L 135-145 Serum or plasma potassium measurement (moles/volume) 3.7 mmol/L 3.6-5.0 Serum or plasma chloride measurement (moles/volume) 111 mmol/L 98-107 Carbon dioxide 25 mmol/L 21-32 Serum or plasma anion gap determination (moles/volume) 5 mmol/L 5-14 Serum or plasma urea nitrogen measurement (mass/volume ) 10 mg/dL 7-18 Serum or plasma creatinine measurement (mass/volume) 0.95 mg/dL 0.60-1.30 Serum or plasma urea nitrogen/creatinine mass ratio 11 NRG Serum or plasma creatinine measurement w ith calculation of estimated glomerular filtration rate > NRG Serum or plasma glucose measurement (mass/volume) 95 mg/dL 70-105 Serum or plasma calcium measurement (mass/volume) 8.2 mg/dL 8.5-10.1 Serum or plasma total bilirubin measurement (mass/volu me) 0.3 mg/dL 0.1-1.0 Serum or plasma alkaline phosphatase javon surement (enzymatic activity/volume) 87 U/L 40-136 Serum or plasma aspartate aminotransfera se measurement (enzymatic activity/volume) 8 U/L 5-34 Serum or plasma alanine aminotransferase measurement (enzymatic activity/volume) 10 U/L 0-55 Serum or plasma protein measurement (mass/volume) 5.3 g/dL 6.4-8.2 Serum or plasma albumin measurement (mass/volume) 3.0 g/dL 3.2-4.5 CALCIUM CORRECTED 9.0 mg/dL 8.5-10.1 Encounters ACCT No. Visit Date/Time Discharge Status Pt. Type Provider Facility Loc./Unit Complaint [id number] 01/08/2017 10:09:00 Document Registration [id number] 09/24/2017 09:08:55 09/24/2017 23:59:5 9 CLS Outpatient [id number] 04/06/2020 18:28:00 020 23:28:00 DIS Emergency POST NELLY MELCHOR [facility] ER FS NAUSEA [id number] 03/30/2020 11:30:00 12:18:00 DIS Outpatient JUAN MANUEL EVANS DO [facility] 4TH GENERAL WEAKNESS,DEBILI TY [id number] 03/28/2020 23:31:00 00:43:00 DIS Outpatient ZAIRA DRAPER, TERESA Caal [facility] ER FS CHEST PAIN,NUMB LEGS [id number] 03/11/2020 23:00:00 14:10:00 DIS Outpatient SHAAN DRAPER, JUAN CARLOS Estevez [facility] ICU CHEST PAIN,UTI,N/V [id number] 02/20/2020 19:28:00 22:20:00 DIS Outpatient ZAIRA DRAPER, TERESA Caal [facility] ER FS CHEST PAIN [id number] 01/17/2020 17:23:00 20:05:00 DIS Outpatient MONICO DRAPER, KACY Feliciano [facility] ER FS CHEST PAIN [id number] 11/09/2019 14:00:00 15:54:00 DIS Outpatient LEEANNA DRAPER, FLACO Verma [facility] ER FS CHEST PAIN [id number] 05/29/2019 13:31:00 01:57:00 DIS Emergency NELLY POST DO [facility] ER FS CHEST PAIN [id number] 04/10/2019 20:06:00 21:58:00 DIS Emergency JOSE TAVERAS DO [facility] ER FS FEELS WEAK, CHEST PAIN, SOB [id number] 03/09/2019 16:33:00 18:40:00 DIS Emergency NELLY POST DO [facility] ER FS HIGH HEART RATE [id number] 03/01/2019 21:54:00 23:36:00 DIS Emergency LARRY DRAPER, MUNDO Lawson [facility] ER R ARM RASH [id number] 03/01/2019 11:23:00 12:17:00 DIS Outpatient ZAIRA DRAPER, TERESA Caal [facility] ER FS ABSCESS [id number] 01/06/2019 15:50:00 16:25:00 DIS Emergency NELLY OPST DO [facility] ER FS POST OP WEAKNESS [id number] 10/12/2018 19:36:00 15:26:00 DIS Inpatient NIC LÓPEZ MD [facility] ICU AFIB W RVR AND CP [id number] 10/04/2018 10:11:00 23:59:59 CLS Outpatient EMILIE BANEGAS APRN [facility] LAB I10 [id number] 10/04/2018 10:08:00 23:59:59 CLS Outpatient JEOVANNY JAMES MD [facility] LAB SEE ORDER [id number] 09/05/2018 00:11:00 23:59:59 CLS Preadmit CARRINGTON GARAY [facility] CR3 CARDIAC REHAB P HASE III [id number] 08/05/2018 08:18:00 00:01:00 DIS Outpatient CARRINGTON GARAY [facility] CR3 CARDIAC REHAB P HASE III [id number] 08/23/2018 10:33:00 23:59:59 CLS Outpatient EMILIE BANEGAS APRN [facility] RAD ELEVATED TSH,THYROID T ENDERNESS [id number] 08/03/2018 07:26:00 00:01:00 DIS Outpatient CARRINGTON GARAY [facility] CR3 CARDIAC REHAB P HASE III [id number] 06/24/2018 12:24:00 23:59:59 CLS Outpatient JEOVANNY JAMES MD [facility] LAB B18.2 [id number] 02/18/2018 08:28:00 06/01/2 018 23:59:59 CLS Outpatient EMILIE BANEGAS APRN [facility] RAD GROIN PAIN,HERNIA [id number] 11/12/2017 11:37:00 018 23:59:59 CLS Outpatient ERIKA DRAPER, JEOVANNY Mayo [facility] LAB B18.2 [id number] 11/09/2017 11:00:00 018 23:59:59 CLS Preadmit EMILIE BANEGAS APRN [facility] RAD NECK PAIN,LOW BACK PAIN [id number] 10/07/2017 08:00:00 018 23:59:59 CLS Preadmit YESENIA DRAPER, Kitty HYLTON [facility] CARD R07.9 CHEST PAIN [id number] 09/25/2017 20:08:00 018 21:54:00 [facility] CP [id number] 09/24/2017 04:14:00 018 16:25:00 DIS Inpatient JUAN MANUEL EVANS DO, [facility] ICU A-FIB [id number] 09/01/2017 21:13:00 23:09:00 DIS Emergency MEDORA MAHI MELCHOR a [facility] ER LEG CRAMPS;CHEST PAIN;B LOOD CLOTS [id number] 08/21/2017 08:27:00 017 13:45:00 DIS Inpatient JUAN MANUEL EVANS DO, V [facility] 4TH PE,HYPOXIA [id number] 07/14/2017 09:27:00 017 13:45:00 DIS Outpatient IMMANUEL FRANCO MD [facility] ENDO ABD. PAIN/HX DIVERTICUL ITIS [id number] 07/12/2017 05:37:00 017 13:22:00 DIS Outpatient IMMANUEL FRANCO MD [facility] PREOP ABD. PAIN/HX DIVERTICUL ITIS [id number] 06/28/2017 20:15:00 017 21:29:00 DIS Emergency ZAIRA DRAPER, TERESA Caal [facility] ER ABD PAIN/PASSING BLOOD IN STOOL [id number] 06/27/2017 19:26:00 017 22:19:00 DIS Emergency ANTHONY DRAPER, SAJAN Estevez [facility] ER AB PAIN [id number] 05/13/2017 11:16:00 017 23:59:59 CLS Preadmit MARK DRAPER, NAHOMI De La Cruz [facility] RAD MASS OF SINUS [id number] 02/16/2015 22:13:00 015 12:04:00 DIS Inpatient MEGHAN DRAPER, GILES Caal [facility] CSD TACHYCARDIA [id number] 04/27/2020 00:47:[address] Inpatient JUAN MANUEL EVANS DO [facility] [place] 4TH CHEST PAIN,NEW SYNCOPE [id number] 11/25/2018 11:02:00 Document Registration [id number] 11/22/2017 10:40:00 Document Registration [id number] 02/18/2015 08:22:00 Document Registration [id number] 02/18/2015 08:21:00 Document Registration [id number] 02/18/2015 08:21:00 Document Registration [id number] 02/18/2015 08:21:00 Document Registration [id number] 09/20/2011 01:05:00 Document Registration [id number] 09/06/2011 00:55:00 Document Registration [id number] 04/10/2011 10:45:00 Document Registration [id number] 02/23/2011 16:44:00 Document Registration [id number] 02/21/2011 17:19:00 Document Registration [id number] 02/21/2011 08:45:00 Document Registration [id number] 02/14/2011 14:03:00 Document Registration [id number] 02/01/2011 20:31:00 Document Registration [id number] 10/29/2010 19:11:00 Document Registration [id number] 02/11/2010 06:03:00 Document Registration [id number] 05/24/2019 14:09:00 Document Registration [id number] 11/24/2018 04:35:00 019 09:20:00 DIS Emergency HERMELINDO FREDERICK MELCHOR [facility] ER FS HEADACHE [id number] 04/26/2020 11:20:00 04/26/2020 23:59:5 9 CLS Outpatient NIKKI WILEY [facility] [id number] 02/14/2020 07:15:00 Document Registration [id number] 06/13/2019 10:15:00 Document Registration [id number] 02/20/2019 17:20:00 Document Registration [id number] 02/08/2019 14:00:00 Document Registration [id number] 05/24/2019 15:09:00 Document Registration [id number] 05/30/2019 10:10:00 Document Registration [id number] 12/21/2014 14:36:00 12/21/2014 23:59: 59 CLS Outpatient VIRGEN DOSHERRON [id number] 11/05/2014 10:03:00 11/05/2014 23:59: 59 CLS Outpatient VIRGEN DOYOCASTAA Syeda [id number] 11/05/2014 09:04:00 11/05/2014 23:59: 59 CLS Outpatient OLIVIA AUGUSTINE [id number] 09/27/2014 12:57:00 09/27/2014 23:59: 59 CLS Outpatient VIRGEN DOSHERRON [id number] 08/22/2014 08:19:00 08/22/2014 23:59: 59 CLS Outpatient OLIVIA AUGUSTINE [id number] 08/20/2014 11:14:00 08/20/2014 23:59: 59 CLS Outpatient VIRGEN DOSHERRON [id number] 08/20/2014 10:45:00 08/20/2014 23:59: 59 CLS Outpatient VIRGEN DOYOCASTAA Syeda [id number] 07/23/2014 12:53:00 07/23/2014 23:59: 59 CLS Outpatient VIRGEN DOYOCASTAA Syeda [id number] 07/23/2014 12:53:00 07/23/2014 23:59: 59 CLS Outpatient VIRGEN DO, SHERRON Syeda [id number] 06/21/2014 11:51:00 06/21/2014 23:59: 59 CLS Outpatient VIRGEN DOYOCASTAA Syeda [id number] 06/20/2014 09:06:00 06/20/2014 23:59: 59 CLS Outpatient VIRGEN DOSHERRON [id number] 06/05/2014 11:28:00 06/05/2014 23:59: 59 CLS Outpatient VIRGEN DOSHERRON [id number] 05/08/2014 13:37:00 05/08/2014 23:59: 59 CLS Outpatient VIRGEN DOSHERRON [id number] 04/11/2014 12:20:00 04/11/2014 23:59: 59 CLS Outpatient VIRGEN DOSHERRON [id number] 03/12/2014 09:18:00 03/12/2014 23:59: 59 CLS Outpatient VIRGEN DOSHERRON [id number] 02/19/2014 08:24:00 02/19/2014 23:59: 59 CLS Outpatient RYAN HALL APRN [id number] 02/13/2014 08:48:00 02/13/2014 23:59: 59 CLS Outpatient VIRGEN DOSHERRON [id number] 12/12/2013 16:22:00 12/12/2013 23:59: 59 CLS Outpatient MICHELE OUTSEWERBRENNEN [place] [id number] 10/04/2013 09:47:00 10/04/2013 23:59: 59 CLS Outpatient RYNE OUTSEWERBRENNEN [place] [id number] 01/23/2013 11:08:00 01/23/2013 23:59: 59 CLS Outpatient BRENNEN MICHELE APRN [id number] 09/06/2012 10:35:00 09/06/2012 23:59: 59 CLS Outpatient BRENNEN MICHELE APRN [id number] 04/08/2012 09:14:00 04/08/2012 23:59:5 9 CLS Outpatient [id number] 01/10/2013 11:04:00 Document Registration [id number] 04/06/2020 13:10:00 04/06/2020 15:40 :00 [id number]01[facility]2020 20:08:00 02/01/2020 23:48 :00 [id number] 10/10/2019 18:31:00 10/10/2019 20:07 :00 [id number] 05/29/2019 12:35:00 05/29/2019 12:35: 00 DIS Outpatient Yanira [place] [id number] 05/27/2019 17:58:00 05/27/2019 20:50: 00 DIS Outpatient Yanira [facility] ER [id number] 05/19/2019 03:52:00 05/19/2019 06:15: 00 DIS Outpatient [facility] ER [id number] 03/20/2019 17:55:00 03/20/2019 20:08: 00 DIS Outpatient Yanira [facility] ER [id number] 02/03/2019 17:01:00 02/03/2019 19:16: 00 DIS Outpatient Yanira [facility] ER [id number] 08/05/2018 14:25:00 08/06/2018 08:30: 00 DIS Outpatient Eduardo Champagne [facility] ER [id number] 06/28/2017 21:46:00 06/29/2017 02:10: 00 DIS Outpatient ROSITA WATKINS [id number] 06/28/2017 23:55:46 Document Registration
== END 2020-05-02 12:10 | disposition home or self-care (01) | DRG 282 ==
LOC: EDUNIT# 22:39 → ER 22:41 → 4TH 22:42 → UNDOADMOB 04-27 00:47 → 4TH 04-27 00:47 → OBSVTOIN 04-27 11:23 → INTOOBSV 04-27 11:23 → UNDODISIN 05-02 12:10
PROVIDERS: ADMIT Internal Medicine; ATTEND Internal Medicine
DX: I95.2 Hypotension due to drugs (principal); I21.A1 Myocardial infarction type 2; F60.3 Borderline personality disorder; I95.89 Other hypotension; K29.70 Gastritis, unspecified, without bleeding; R63.0 Anorexia; I25.10 Atherosclerotic heart disease of native coronary artery without angina pectoris; I48.0 Paroxysmal atrial fibrillation; I10 Essential (primary) hypertension; R25.1 Tremor, unspecified; R53.1 Weakness; R63.4 Abnormal weight loss; R55 Syncope and collapse; R53.81 Other malaise; F41.9 Anxiety disorder, unspecified; E78.5 Hyperlipidemia, unspecified; I34.0 Nonrheumatic mitral (valve) insufficiency; F32.9 Major depressive disorder, single episode, unspecified; M19.91 Primary osteoarthritis, unspecified site; M54.9 Dorsalgia, unspecified; K57.90 Diverticulosis of intestine, part unspecified, without perforation or abscess without bleeding; K64.9 Unspecified hemorrhoids; G43.909 Migraine, unspecified, not intractable, without status migrainosus; N42.9 Disorder of prostate, unspecified; Z85.038 Personal history of other malignant neoplasm of large intestine; Z76.5 Malingerer [conscious simulation]; Z86.19 Personal history of other infectious and parasitic diseases; Z86.711 Personal history of pulmonary embolism; Z87.891 Personal history of nicotine dependence; Z90.81 Acquired absence of spleen
CPT/HCPCS: 36415; 71045; 80048; 80053; 80061; 82533; 83615; 83735; 83874; 84145; 84484; 85025; 85379; 85610; 85652; 85730; 86141; 93005; 93041; 93306; G0378

== ENCOUNTER 2020-07-26 21:18 | Emergency (ER) | payer MEDICAID ==
[~2020-07-26 21:18] MED LIST changes: -AMIO200T4 PO; +AMIO200T6 PO; +MECL-149 PO; -OXYC5TAB96 PO; -PANT40TA3 PO; +PANT40TA52 PO
[2020-07-26] MEDS ORDERED: NS IV 1000 ML 1,000 ML IV STA (21:32)
--- NOTE | 2020-07-26 21:35 | ED General ---
General Chief Complaint: Dizziness/Syncope Stated Complaint: DIZZY Source of Information: Patient History of Present Illness Date Seen by Provider: Jul 26, 2020 Time Seen by Provider: 21:25 Initial Comments This patient is a 59-year-old male that presents to the urgency department complaining of about not feeling good. Patient states started around 4 PM this afternoon he continues. Patient does have a history of A. fib and has had a cardiac ablation in the past. Patient states he feels dizzy when walking. Patient denies any chest pain. Denies any nausea vomiting. Denies any headache. We'll do medical evaluation treatment is needed Timing/Duration: 4-6 Hours Severity: Moderate Associated Systoms: No Denies Symptoms, No Chest Pain, No Cough, No Diaphoresis, No Fever/Chills, No Headaches, No Loss of Appetite, No Malaise, No Nausea/Vomiting, No Rash, No Seizure, No Shortness of Air, No Syncope, No Weakness, No Other Allergies and Home Medications Allergies Uncoded Allergies: IV contrast (Allergy, Unknown, 03/11/20) Home Medications Alprazolam 1 Mg Tablet, 0.5 MG PO DAILY PRN for ANXIETY, (Reported) Alprazolam 1 Mg Tablet, 1 MG PO HS PRN for ANXIETY, (Reported) Amiodarone HCl 200 Mg Tablet, 200 MG PO DAILY Prescribed by: JUAN MANUEL EVANS on 05/02/20 1023 Apixaban 5 Mg Tablet, 5 MG PO BID, (Reported) Atorvastatin Calcium 40 Mg Tablet, 40 MG PO DAILY, (Reported) Levothyroxine Sodium 50 Mcg Tablet, 50 MCG PO DAILY, (Reported) Lisinopril 10 Mg Tablet, 10 MG PO DAILY, (Reported) Meclizine HCl 25 Mg Tablet, 12.5 MG PO TID PRN for DIZZINESS Prescribed by: JUAN MANUEL EVANS on 05/02/20 1023 Oxycodone HCl 10 Mg Tablet, 10 MG PO Q6H PRN for PAIN-SEVERE (8-10), (Reported) Potassium Chloride 10 Meq Tablet.er, 10 MEQ PO DAILY@0700 Prescribed by: JUAN MANUEL EVANS on 04/03/20 0957 Patient Home Medication List Home Medication List Reviewed: Yes Review of Systems Review of Systems Constitutional: No no symptoms reported; see HPI; No chills, No diaphoresis; dizziness; No fever, No malaise, No weakness, No weight gain, No weight loss, No other EENTM: No see HPI, No no symptoms reported, No ear discharge, No hearing loss, No ear pain, No blurred vision, No double vision, No eye pain, No tearing, No vision loss, No dental problems, No hoarseness, No mouth pain, No mouth swelling, No epistaxis, No nose congestion, No nose pain, No throat pain, No throat swelling, No other Respiratory: No no symptoms reported, No see HPI, No cough, No dyspnea on exertion, No hemoptysis, No orthopnea, No phlegm, No short of breath, No stridor, No wheezing, No other Cardiovascular: No no symptoms reported, No see HPI, No chest pain, No edema, No Hx of Intervention, No palpitations, No syncope, No vascular heart diseas, No other Gastrointestinal: No RUQ, No LUQ, No RLQ, No LLQ, No no symptoms reported, No see HPI, No abdominal pain, No constipation, No diarrhea, No dysphagia, No hematemesis, No heartburn, No jaundice, No loss of appetite, No melena, No nausea, No vomiting, No other Genitourinary: No no symptoms reported, No see HPI, No decreased output, No discharge, No dysuria, No frequency, No hematuria, No hesitancy, No incontinence, No nocturia, No pain, No other Musculoskeletal: No no symptoms reported, No see HPI, No back pain, No gout, No joint pain, No joint swelling, No muscle pain, No muscle stiffness, No muscle cramps, No muscle twitching, No muscle weakness, No neck pain, No other Skin: No no symptoms reported, No see HPI, No change in color, No change in hair/nails, No dryness, No hx of skin cancer, No lesions, No lumps, No pruritus, No rash, No other All Other Systems Reviewed Negative Unless Noted: Yes Past Tgumzjz-Mptntf-Crjiaq Hx Patient Social History Type Used: Cigarettes Former Smoker, Quit: Jul 12, 1985 2nd Hand Smoke Exposure: No Recent Foreign Travel: No Contact w/Someone Who Travel: No Recent Hopitalizations: No Immunizations Up To Date Tetanus Booster (TDap): Unknown Date of Pneumonia Vaccine: Jul 21, 2018 Date of Influenza Vaccine: Jul 21, 2018 Seasonal Allergies Seasonal Allergies: No Past Medical History Surgeries: Yes (Cardiac Ablation, spleenectomy) Appendectomy, Bowel Surgery Respiratory: Yes Pulmonary Embolism Cardiac: Yes Atrial Fibrillation, High Cholesterol, Hypertension, Irregular Heartbeat Neurological: Yes Headaches /Migraines Reproductive Disorders: No Sexually Transmitted Disease: Yes (Hep C: treated) HIV/AIDS: No Genitourinary: No Prostate Problems Gastrointestinal: Yes (COLON CA WITH SURGICAL INTERVENTION) Diverticulosis, Hemorrhoids Musculoskeletal: Yes Arthritis, Chronic Back Pain Endocrine: Yes Hypothyroidsim HEENT: No Loss of Vision: Denies Hearing Impairment: Denies Cancer: Yes Colon Did You Recieve Any Treatments: Yes What Type of Treatment Did You: Surgical Intervention Psychosocial: Yes Anxiety, Depression Integumentary: No Blood Disorders: No Adverse Reaction/Blood Tranf: No Family Medical History FH: emphysema 19 MOTHER FH: lung cancer 19 FATHER Heart Disease, Hypertension Physical Exam Vital Signs Vital Signs - First Documented 07/26/20 21:22 Pulse 89 Resp 16 B/P (MAP) 132/78 (96) Pulse Ox 97 O2 Delivery Room Air Capillary Refill : Height, Weight, BMI Height: 6'0" Weight: 224lbs. 0oz. 101.790220tl; 39.30 BMI Method:Stated General Appearance: No Apparent Distress, WD/WN Respiratory: Chest Non Tender, Lungs Clear, Normal Breath Sounds, No Accessory Muscle Use, No Respiratory Distress Cardiovascular: Regular Rate, Rhythm, No Edema, No Gallop, No JVD, No Murmur, Normal Peripheral Pulses Gastrointestinal: Normal Bowel Sounds, No Organomegaly, No Pulsatile Mass, Non Tender, Soft Neurologic/Psychiatric: Alert, Oriented x3, No Motor/Sensory Deficits, Normal Mood/Affect Skin: Normal Color, Warm/Dry Procedures/Interventions Date of ETT Placement: Mar 13, 2020 Time of ETT Placement: 729 Progress/Results/Core Measures Suspected Sepsis SIRS Temperature: Pulse: Respiratory Rate: Laboratory Tests 07/26/20 21:35: White Blood Count 9.3 Blood Pressure / Mean: Laboratory Tests 07/26/20 21:35: Creatinine 1.32H, INR Comment 1.1, Platelet Count 393, Total Bilirubin 0.2 Results/Orders Lab Results Laboratory Tests Test 07/26/20 21:35 07/26/20 22:25 Range/Units White Blood Count 9.3 4.3-11.0 10^3/uL Red Blood Count 4.80 4.35-5.85 10^6/uL Hemoglobin 11.5 L 13.3-17.7 G/DL Hematocrit 35 L 40-54 % Mean Corpuscular Volume 73 L 80-99 FL Mean Corpuscular Hemoglobin 24 L 25-34 PG Mean Corpuscular Hemoglobin Concent 33 32-36 G/DL Red Cell Distribution Width 16.9 H 10.0-14.5 % Platelet Count 393 130-400 10^3/uL Mean Platelet Volume 10.3 7.4-10.4 FL Immature Granulocyte % (Auto) 0 % Neutrophils (%) (Auto) 59 42-75 % Lymphocytes (%) (Auto) 20 12-44 % Monocytes (%) (Auto) 12 0-12 % Eosinophils (%) (Auto) 8 0-10 % Basophils (%) (Auto) 1 0-10 % Neutrophils # (Auto) 5.5 1.8-7.8 X 10^3 Lymphocytes # (Auto) 1.9 1.0-4.0 X 10^3 Monocytes # (Auto) 1.1 H 0.0-1.0 X 10^3 Eosinophils # (Auto) 0.7 H 0.0-0.3 10^3/uL Basophils # (Auto) 0.1 0.0-0.1 10^3/uL Immature Granulocyte # (Auto) 0.0 0.0-0.1 10^3/uL Prothrombin Time 14.4 12.2-14.7 SEC INR Comment 1.1 0.8-1.4 Sodium Level 136 135-145 MMOL/L Potassium Level 4.6 3.6-5.0 MMOL/L Chloride Level 103 98-107 MMOL/L Carbon Dioxide Level 22 21-32 MMOL/L Anion Gap 11 5-14 MMOL/L Blood Urea Nitrogen 18 7-18 MG/DL Creatinine 1.32 H 0.60-1.30 MG/DL Estimat Glomerular Filtration Rate 55 BUN/Creatinine Ratio 14 Glucose Level 147 H 70-105 MG/DL Calcium Level 8.8 8.5-10.1 MG/DL Corrected Calcium 9.0 8.5-10.1 MG/DL Total Bilirubin 0.2 0.1-1.0 MG/DL Aspartate Amino Transf (AST/SGOT) 19 5-34 U/L Alanine Aminotransferase (ALT/SGPT) 12 0-55 U/L Alkaline Phosphatase 121 40-136 U/L Troponin I < 0.30 <0.30 NG/ML Pro-B-Type Natriuretic Peptide 1737.0 H <75.0 PG/ML Total Protein 6.6 6.4-8.2 GM/DL Albumin 3.8 3.2-4.5 GM/DL Smear Scan ACANTHOCYTES 2+ Urine Color YELLOW Urine Clarity CLEAR Urine pH 6.0 5-9 Urine Specific [place] >=1.030 1.016-1.022 Urine Protein NEGATIVE NEGATIVE Urine Glucose (UA) NEGATIVE NEGATIVE Urine Ketones NEGATIVE NEGATIVE Urine Nitrite NEGATIVE NEGATIVE Urine Bilirubin NEGATIVE NEGATIVE Urine Urobilinogen 0.2 < = 1.0 MG/DL Urine Leukocyte Esterase NEGATIVE NEGATIVE Urine RBC (Auto) NEGATIVE NEGATIVE Urine RBC NONE /HPF Urine WBC RARE /HPF Urine Squamous Epithelial Cells RARE /HPF Urine Crystals NONE /LPF Urine Bacteria TRACE /HPF Urine Casts NONE /LPF Urine Mucus MODERATE H /LPF Urine Culture Indicated NO Urine Opiates Screen NEGATIVE NEGATIVE Urine Oxycodone Screen POSITIVE H NEGATIVE Urine Methadone Screen NEGATIVE NEGATIVE Urine Propoxyphene Screen NEGATIVE NEGATIVE Urine Barbiturates Screen NEGATIVE NEGATIVE Ur Tricyclic Antidepressants Screen NEGATIVE NEGATIVE Urine Phencyclidine Screen NEGATIVE NEGATIVE Urine Amphetamines Screen NEGATIVE NEGATIVE Urine Methamphetamines Screen NEGATIVE NEGATIVE Urine Benzodiazepines Screen POSITIVE H NEGATIVE Urine Cocaine Screen NEGATIVE NEGATIVE Urine Cannabinoids Screen NEGATIVE NEGATIVE My Orders Orders - JERRICA RAM MD Ed Iv/Invasive Line Start (07/26/20 21:31) Comprehensive Metabolic Panel (07/26/20 21:31) Cbc With Automated Diff (07/26/20 21:31) Drug Screen Stat (Urine) (07/26/20 21:31) Urinalysis (07/26/20 21:31) Troponin I Fs (07/26/20 21:31) Protime With Inr (07/26/20 21:31) Probnp Fs (07/26/20 21:31) Chest 1 View Ap/Pa Only (07/26/20 21:31) Ekg Tracing (07/26/20 21:31) Orthostatic Vital Signs (Adult (07/26/20 21:31) Ns Iv 1000 Ml (Sodium Chloride 0.9%) (07/26/20 21:32) Vital Signs/I&O 07/26/20 07/26/20 21:22 21:37 Pulse 89 82 84 84 Resp 16 B/P (MAP) 132/78 (96) 124/78 (93) 123/78 (93) 131/82 (98) Pulse Ox 97 O2 Delivery Room Air Capillary Refill : Progress Note : Time: 22:44 Progress Note Negative evaluation in the emergency Department patient does have positive drug screen for prescribed medications from his PCP. Patient's chronic conditions appear to be stable. Encourage by mouth fluids. Tylenol Motrin as needed for fever pain. Get plenty rest. Follow-up with PCP in 2-3 days ECG Initial ECG Impression Date: Jul 26, 2020 Initial ECG Impression Time: 21:24 Initial ECG Rate: 84 Initial ECG Rhythm: Normal Sinus Initial ECG Intervals Incomplete right bundle branch block and left anterior fascicular block Prolonged QT Initial ECG Impression: Normal, Nonspecific Changes Comment Sinus rhythm with a heart rate of 84. Incomplete right bundle-branch block and left anterior sick for block. Prolonged QT interval. Departure Impression Primary Impression: Encounter for medical screening examination Additional Impression: Dizziness Disposition: 01 HOME, SELF-CARE Condition: Stable Departure-Patient Inst. Decision time for Depature: 22:45 Referrals: [facility] (PCP) Primary Care Physician NIKKI WILEY APRN (Family) Primary Care Physician Patient Instructions: Dizziness, Nonvertigo, (DC) Add. Discharge Instructions: Encourage by mouth fluids. Tylenol Motrin as needed for fever pain. Get plenty rest. Follow-up with PCP in 2-3 days All discharge instructions reviewed with patient and/or family. Voiced understanding. JERRICA RAM MD Jul 26, 2020 21:35
[2020-07-26 21:37] VITALS: BP_SYST 123; BP_SYST 124; BP_SYST 131; BP_DIAS 78; BP_DIAS 82
--- NOTE | 2020-07-26 21:49 | Diagnostic Imaging Report ---
INDICATION: Dizziness. EXAMINATION: Portable chest. FINDINGS: Mild cardiomegaly with no failure. There is left basilar discoid atelectasis. No infiltrate or effusion is seen. IMPRESSION: Left basilar discoid atelectasis. Besides the atelectasis there is no significant change from 04/26/2020. Dictated by: Dictated on workstation # [id number]
[2020-07-26 21:51] LABS: BASOPHILS % (AUTO) 1 % (0-10); EOSINOPHILS % (AUTO) 8 % (0-10); HEMATOCRIT 35 % (40-54); HEMOGLOBIN 11.5 G/DL (13.3-17.7); LYMPHOCYTES % (AUTO) 20 % (12-44); MEAN CORPUSCULAR HEMOGLOBIN 24 PG (25-34); MEAN CORPUSCULAR HGB CONC 33 G/DL (32-36); MEAN CORPUSCULAR VOLUME 73 FL (80-99); MEAN PLATELET VOLUME 10.3 FL (7.4-10.4); MONOCYTES % (AUTO) 12 % (0-12); NEUTROPHILS % (AUTO) 59 % (42-75); PLATELET COUNT 393 10^3/uL (130-400); WHITE BLOOD COUNT 9.3 10^3/uL (4.3-11.0)
[2020-07-26 21:52] LABS: BASOPHILS # (AUTO) 0.1 10^3/uL (0.0-0.1); EOSINOPHILS # (AUTO) 0.7 10^3/uL (0.0-0.3); LYMPHOCYTES # (AUTO) 1.9 X 10^3 (1.0-4.0); MONOCYTES # (AUTO) 1.1 X 10^3 (0.0-1.0); NEUTROPHILS # (AUTO) 5.5 X 10^3 (1.8-7.8)
[2020-07-26 21:54] LABS: INR 1.1 (0.8-1.4); PROTHROMBIN TIME PATIENT 14.4 SEC (12.2-14.7)
[2020-07-26 22:02] LABS: SMEAR SCAN COMMENT ACANTHOCYTES 2+
[2020-07-26 22:13] LABS: ALANINE AMINOTRANSFERASE 12 U/L (0-55); ALKALINE PHOSPHATASE 121 U/L (40-136); BILIRUBIN,TOTAL 0.2 MG/DL (0.1-1.0); BUN/CREATININE RATIO 14; CALCIUM 8.8 MG/DL (8.5-10.1); CARBON DIOXIDE 22 MMOL/L (21-32); CHLORIDE 103 MMOL/L (98-107); CREATININE SERUM 1.32 MG/DL (0.60-1.30); GFR ESTIMATED 55; GLUCOSE 147 MG/DL (70-105); POTASSIUM 4.6 MMOL/L (3.6-5.0); SODIUM 136 MMOL/L (135-145)
[2020-07-26 22:14] LABS: ALBUMIN 3.8 GM/DL (3.2-4.5); TOTAL PROTEIN 6.6 GM/DL (6.4-8.2)
[2020-07-26 22:36] LABS: CLARITY,URINE CLEAR; COLOR,URINE YELLOW
[2020-07-26 22:37] LABS: BACTERIA,URINE TRACE /HPF; BILIRUBIN,URINE NEGATIVE (NEGATIVE); GLUCOSE, URINE (UA) NEGATIVE (NEGATIVE); KETONES,URINE NEGATIVE (NEGATIVE); LEUKOCYTE ESTERASE ,URINE NEGATIVE (NEGATIVE); NITRITE,URINE NEGATIVE (NEGATIVE); PROTEIN,URINE NEGATIVE (NEGATIVE); SQUAMOUS EPITHELIAL CELL,UR RARE /HPF; WBC,URINE RARE /HPF
[2020-07-26 22:42] LABS: AMPHETAMINE SCREEN, URINE NEGATIVE (NEGATIVE); BARBITURATE SCREEN URINE NEGATIVE (NEGATIVE); BENZODIAZEPINES SCREEN URINE POSITIVE (NEGATIVE); CANNABINOID SCREEN, URINE NEGATIVE (NEGATIVE); COCAINE SCREEN URINE NEGATIVE (NEGATIVE); METHADONE STAT NEGATIVE (NEGATIVE); METHAMPHETAMINE SCREEN URINE S NEGATIVE (NEGATIVE); OPIATE SCREEN URINE NEGATIVE (NEGATIVE); OXYCODONE STAT POSITIVE (NEGATIVE); PROPOXYPHENE STAT NEGATIVE (NEGATIVE); TRICYCLIC ANTIDEPRESSANTS SCRE NEGATIVE (NEGATIVE)
[2020-07-26 22:48] VITALS: BP 132/83
== END 2020-07-26 22:49 | disposition home or self-care (01) ==
LOC: EDUNIT# 21:18 → ER FS 21:19
DX: R42 Dizziness and giddiness (principal); I10 Essential (primary) hypertension; G89.29 Other chronic pain; M54.9 Dorsalgia, unspecified; E78.00 Pure hypercholesterolemia, unspecified; E03.9 Hypothyroidism, unspecified; I48.91 Unspecified atrial fibrillation; F41.9 Anxiety disorder, unspecified; Z80.1 Family history of malignant neoplasm of trachea, bronchus and lung; Z82.49 Family history of ischemic heart disease and other diseases of the circulatory system; Z85.038 Personal history of other malignant neoplasm of large intestine; Z86.711 Personal history of pulmonary embolism; Z87.891 Personal history of nicotine dependence; Z79.01 Long term (current) use of anticoagulants; Z79.891 Long term (current) use of opiate analgesic; Z79.890 Hormone replacement therapy; Z91.041 Radiographic dye allergy status
CPT/HCPCS: 36415; 71045; 80053; 80306; 81000; 83880; 84484; 85025; 85610; 93005

== ENCOUNTER 2020-08-03 15:40 | Emergency (ER) | payer MEDICAID ==
[2020-08-03 15:57] VITALS: BP_SYST 130; BP_SYST 137; BP_DIAS 83; BP_DIAS 85
--- NOTE | 2020-08-03 16:06 | ED Syncope ---
General Chief Complaint: Dizziness/Syncope Stated Complaint: DIZZINESS; NEAR SYNCOPE; BP 180/110 Nursing Triage Note: Has been sick x 1 week with dizziness, high blood pressure, headache. Was sent here from urgent care today due to high blood pressure. Was seen in ED one week ago for same symptoms. Denies fevers, nausea, vomiting, or respiratory symptoms. States he was taken off of his heart medicine and is going to have an ablation next month. Has hx of afib. Also has the sensation of being choked and states it has been difficult to swallow for one week. Also states he intermittently started seeing black spots today. History of Present Illness Date Seen by Provider: Aug 03, 2020 Time Seen by Provider: 15:55 Initial Comments 59-year-old male presents with a one-week history of feeling lightheaded and dizzy with associated throat tightness. States that his symptoms are persistent and that he's had them before. Seen in the urgent care today and then sent to the ER for more thorough evaluation. Past medical history significant for atrial fibrillation with an ablation about one year ago. He has been on amiodarone up until one month ago and this was stopped. Followed at [facility]. Denies any recent illness, cough, shortness of air, fever or chills, chest pain, palpitations or swelling of extremities. Allergies and Home Medications Allergies Uncoded Allergies: IV contrast (Allergy, Unknown, 03/11/20) Home Medications Alprazolam 1 Mg Tablet, 0.5 MG PO DAILY PRN for ANXIETY, (Reported) Alprazolam 1 Mg Tablet, 1 MG PO HS PRN for ANXIETY, (Reported) Amiodarone HCl 200 Mg Tablet, 200 MG PO DAILY Prescribed by: JUAN MANUEL EVANS on 05/02/20 1023 Apixaban 5 Mg Tablet, 5 MG PO BID, (Reported) Atorvastatin Calcium 40 Mg Tablet, 40 MG PO DAILY, (Reported) Levothyroxine Sodium 50 Mcg Tablet, 50 MCG PO DAILY, (Reported) Lisinopril 10 Mg Tablet, 10 MG PO DAILY, (Reported) Meclizine HCl 25 Mg Tablet, 12.5 MG PO TID PRN for DIZZINESS Prescribed by: JUAN MANUEL EVANS on 05/02/20 1023 Oxycodone HCl 10 Mg Tablet, 10 MG PO Q6H PRN for PAIN-SEVERE (8-10), (Reported) Potassium Chloride 10 Meq Tablet.er, 10 MEQ PO DAILY@0700 Prescribed by: JUAN MANUEL EVANS on 04/03/20 1616 Patient Home Medication List Home Medication List Reviewed: Yes Review of Systems Constitutional: No chills; dizziness; No fever, No malaise, No weakness Respiratory: No cough, No hemoptysis, No short of breath Cardiovascular: No chest pain, No palpitations, No syncope Gastrointestinal: No abdominal pain, No nausea, No vomiting Musculoskeletal: No back pain, No joint pain Skin: No change in color, No rash Psychiatric/Neurological: Denies Headache, Denies Numbness, Denies Paresthesia, Denies Tremors, Denies Weakness Past Tczvilh-Odjfrr-Oguhkn Hx Past Med/Social Hx: Reviewed Nursing Past Med/Soc Hx Patient Social History Alcohol Use: Denies Use Recreational Drug Use: No (DENIES ETOH OR TOBACCO USE) Smoking Status: Former Smoker Type Used: Cigarettes Former Smoker, Quit: Jul 12, 1985 2nd Hand Smoke Exposure: No Recent Foreign Travel: No Contact w/Someone Who Travel: No Recent Infectious Disease Expo: No Recent Hopitalizations: No Physical Abuse: No Sexual Abuse: No Mistreated: No Fear: No Immunizations Up To Date Tetanus Booster (TDap): Unknown Date of Pneumonia Vaccine: Jul 21, 2018 Date of Influenza Vaccine: Jul 21, 2018 Seasonal Allergies Seasonal Allergies: No Past Medical History Surgeries: Yes (Cardiac Ablation, spleenectomy) Appendectomy, Bowel Surgery Respiratory: Yes Pulmonary Embolism Cardiac: Yes Atrial Fibrillation, High Cholesterol, Hypertension, Irregular Heartbeat Neurological: Yes Headaches /Migraines Reproductive Disorders: No Sexually Transmitted Disease: Yes (Hep C: treated) HIV/AIDS: No Genitourinary: No Prostate Problems Gastrointestinal: Yes (COLON CA WITH SURGICAL INTERVENTION) Diverticulosis, Hemorrhoids Musculoskeletal: Yes Arthritis, Chronic Back Pain Endocrine: Yes Hypothyroidsim HEENT: No Loss of Vision: Denies Hearing Impairment: Denies Cancer: Yes Colon Did You Recieve Any Treatments: Yes What Type of Treatment Did You: Surgical Intervention Psychosocial: Yes Anxiety, Depression Integumentary: No Blood Disorders: No Adverse Reaction/Blood Tranf: No Family Medical History FH: emphysema 19 MOTHER FH: lung cancer 19 FATHER Heart Disease, Hypertension Physical Exam Vital Signs Vital Signs - First Documented 08/03/20 15:45 Temp 36.8 Pulse 81 Resp 13 B/P (MAP) 132/90 (104) Pulse Ox 98 Capillary Refill : Less Than 3 Seconds Height, Weight, BMI Height: 6'0" Weight: 224lbs. 0oz. 101.427115xy; 39.30 BMI Method:Stated General Appearance: No Apparent Distress, WD/WN HEENT: PERRL/EOMI, Normal ENT Inspection Neck: Normal Inspection, Non Tender Cardiovascular: Regular Rate, Rhythm, No Edema, No JVD, Normal Peripheral Pulses Respiratory: Chest Non Tender, Lungs Clear, Normal Breath Sounds Gastrointestinal: Non Tender, Soft; No Distended, No Guarding Extremities: Normal Capillary Refill, Non Tender, No Pedal Edema Neurologic/Psychiatric: Alert, Oriented x3, No Motor/Sensory Deficits, Normal Mood/Affect Cranial Nerves: Normal Hearing, Normal Speech Motor/Sensory: No Motor Deficit, No Sensory Deficit Skin: Normal Color, Warm/Dry Procedures/Interventions Date of ETT Placement: Mar 13, 2020 Time of ETT Placement: 729 Progress/Results/Core Measures Results/Orders Lab Results Laboratory Tests Test 08/03/20 16:16 Range/Units White Blood Count 9.4 4.3-11.0 10^3/uL Red Blood Count 4.93 4.35-5.85 10^6/uL Hemoglobin 11.6 L 13.3-17.7 G/DL Hematocrit 36 L 40-54 % Mean Corpuscular Volume 72 L 80-99 FL Mean Corpuscular Hemoglobin 24 L 25-34 PG Mean Corpuscular Hemoglobin Concent 33 32-36 G/DL Red Cell Distribution Width 17.0 H 10.0-14.5 % Platelet Count 374 130-400 10^3/uL Mean Platelet Volume 10.2 7.4-10.4 FL Immature Granulocyte % (Auto) 0 % Neutrophils (%) (Auto) 67 42-75 % Lymphocytes (%) (Auto) 15 12-44 % Monocytes (%) (Auto) 11 0-12 % Eosinophils (%) (Auto) 6 0-10 % Basophils (%) (Auto) 1 0-10 % Neutrophils # (Auto) 6.3 1.8-7.8 X 10^3 Lymphocytes # (Auto) 1.4 1.0-4.0 X 10^3 Monocytes # (Auto) 1.1 H 0.0-1.0 X 10^3 Eosinophils # (Auto) 0.5 H 0.0-0.3 10^3/uL Basophils # (Auto) 0.1 0.0-0.1 10^3/uL Immature Granulocyte # (Auto) 0.0 0.0-0.1 10^3/uL Sodium Level 138 135-145 MMOL/L Potassium Level 4.1 3.6-5.0 MMOL/L Chloride Level 103 98-107 MMOL/L Carbon Dioxide Level 24 21-32 MMOL/L Anion Gap 11 5-14 MMOL/L Blood Urea Nitrogen 16 7-18 MG/DL Creatinine 1.29 0.60-1.30 MG/DL Estimat Glomerular Filtration Rate 57 BUN/Creatinine Ratio 12 Glucose Level 104 70-105 MG/DL Calcium Level 8.9 8.5-10.1 MG/DL Corrected Calcium 9.0 8.5-10.1 MG/DL Total Bilirubin 0.5 0.1-1.0 MG/DL Aspartate Amino Transf (AST/SGOT) 13 5-34 U/L Alanine Aminotransferase (ALT/SGPT) 11 0-55 U/L Alkaline Phosphatase 159 H 40-136 U/L Troponin I < 0.30 <0.30 NG/ML Total Protein 6.6 6.4-8.2 GM/DL Albumin 3.9 3.2-4.5 GM/DL My Orders Orders - ROVENSTINE,MENA L DO Chest 1 View Ap/Pa Only (08/03/20 15:57) Cbc With Automated Diff (08/03/20 15:57) Comprehensive Metabolic Panel (08/03/20 15:57) Troponin I Fs (08/03/20 15:57) Ekg Tracing (08/03/20 15:57) Orthostatic Vital Signs (Adult (08/03/20 15:58) Vital Signs/I&O 08/03/20 08/03/20 15:45 15:57 Temp 36.8 Pulse 81 78 83 Resp 13 B/P (MAP) 132/90 (104) 130/83 (99) 137/85 (102) Pulse Ox 98 Blood Pressure Mean: 104 Initial ECG Impression Date: Aug 03, 2020 Initial ECG Impression Time: 16:00 Initial ECG Rate: 77 Initial ECG Rhythm: Normal Sinus Initial ECG Impression: Normal Diagnostic Imaging Diagonstic Imaging: Xray Plain Films/CT/US/NM/MRI: chest Comments FINDINGS: There is some minimal linear opacity in right base consistent with minimal atelectasis; otherwise, the lungs are clear. There is no effusion or pneumothorax. IMPRESSION: No acute cardiopulmonary process is identified. Dictated on workstation # [id number] Dict: 08/03/20 1620 Trans: 08/03/20 1624 [id number] Interpreted by: MASOUD LESLIE MD Electronically signed by: Departure Impression Primary Impression: Dizziness Disposition: 01 HOME, SELF-CARE Condition: Stable Departure-Patient Inst. Decision time for Depature: 17:03 Referrals: [facility] (PCP) Primary Care Physician NIKKI WILEY APRN (Family) Primary Care Physician Patient Instructions: Dizziness, Nonvertigo, (DC) Add. Discharge Instructions: Follow up with your PCP next week for re-evaluation All discharge instructions reviewed with patient and/or family. Voiced understanding. MENA AMOR DO Aug 03, 2020 16:06
--- NOTE | 2020-08-03 16:24 | Diagnostic Imaging Report ---
INDICATION: Syncope and hypertension. TIME OF EXAM: 4:09 p.m. COMPARISON: Correlation is made with prior chest from 07/26/2020. FINDINGS: There is some minimal linear opacity in right base consistent with minimal atelectasis; otherwise, the lungs are clear. There is no effusion or pneumothorax. IMPRESSION: No acute cardiopulmonary process is identified. Dictated by: Dictated on workstation # [id number]
[2020-08-03 16:32] LABS: EOSINOPHILS % (AUTO) 6 % (0-10); HEMATOCRIT 36 % (40-54); HEMOGLOBIN 11.6 G/DL (13.3-17.7); LYMPHOCYTES % (AUTO) 15 % (12-44); MEAN CORPUSCULAR HEMOGLOBIN 24 PG (25-34); MEAN CORPUSCULAR HGB CONC 33 G/DL (32-36); MEAN CORPUSCULAR VOLUME 72 FL (80-99); MEAN PLATELET VOLUME 10.2 FL (7.4-10.4); MONOCYTES % (AUTO) 11 % (0-12); NEUTROPHILS % (AUTO) 67 % (42-75); PLATELET COUNT 374 10^3/uL (130-400); WHITE BLOOD COUNT 9.4 10^3/uL (4.3-11.0)
[2020-08-03 16:33] LABS: BASOPHILS # (AUTO) 0.1 10^3/uL (0.0-0.1); BASOPHILS % (AUTO) 1 % (0-10); EOSINOPHILS # (AUTO) 0.5 10^3/uL (0.0-0.3); LYMPHOCYTES # (AUTO) 1.4 X 10^3 (1.0-4.0); MONOCYTES # (AUTO) 1.1 X 10^3 (0.0-1.0); NEUTROPHILS # (AUTO) 6.3 X 10^3 (1.8-7.8)
[2020-08-03 16:53] LABS: ALANINE AMINOTRANSFERASE 11 U/L (0-55); ALBUMIN 3.9 GM/DL (3.2-4.5); ALKALINE PHOSPHATASE 159 U/L (40-136); BILIRUBIN,TOTAL 0.5 MG/DL (0.1-1.0); BUN/CREATININE RATIO 12; CALCIUM 8.9 MG/DL (8.5-10.1); CARBON DIOXIDE 24 MMOL/L (21-32); CHLORIDE 103 MMOL/L (98-107); CREATININE SERUM 1.29 MG/DL (0.60-1.30); GFR ESTIMATED 57; GLUCOSE 104 MG/DL (70-105); POTASSIUM 4.1 MMOL/L (3.6-5.0); SODIUM 138 MMOL/L (135-145); TOTAL PROTEIN 6.6 GM/DL (6.4-8.2)
[2020-08-03 17:08] VITALS: BP 125/87
== END 2020-08-03 17:09 | disposition home or self-care (01) ==
LOC: EDUNIT# 15:40 → ER FS 15:41
DX: R42 Dizziness and giddiness (principal); F41.9 Anxiety disorder, unspecified; I10 Essential (primary) hypertension; E78.00 Pure hypercholesterolemia, unspecified; E03.9 Hypothyroidism, unspecified; G89.29 Other chronic pain; M54.9 Dorsalgia, unspecified; I48.91 Unspecified atrial fibrillation; Z80.1 Family history of malignant neoplasm of trachea, bronchus and lung; Z82.49 Family history of ischemic heart disease and other diseases of the circulatory system; Z85.038 Personal history of other malignant neoplasm of large intestine; Z87.891 Personal history of nicotine dependence; Z86.711 Personal history of pulmonary embolism; Z79.890 Hormone replacement therapy; Z91.041 Radiographic dye allergy status; Z79.891 Long term (current) use of opiate analgesic; Z79.01 Long term (current) use of anticoagulants
CPT/HCPCS: 36415; 71045; 80053; 84484; 85025

== ENCOUNTER 2020-09-05 18:17 | Emergency (ER) | payer MEDICAID ==
[~2020-09-05] VITALS: Ht 182 cm; Wt 98.7 kg
--- NOTE | 2020-09-05 18:31 | ED Chest Pain ---
General Stated Complaint: HEADACHE,CHEST PAIN Source: patient History of Present Illness Date Seen by Provider: Sep 05, 2020 Time Seen by Provider: 18:31 Initial Comments 59-year-old male presenting with sinus pressure and headache, cough, chest pain with cough. He states this is been going on for the last several days. He has congestion and drainage that is making him throw up mucus. He has subjective fever and chills with body aches and joint pain. He denies any ill contacts that he is aware of. He is feeling dizzy and lightheaded with changing positions. He is worried that he might be getting an infection. He was septic earlier this year and is very nervous that that might happen again. He is scheduled to go to [facility] for testing and to get a cardiac ablation this month yet. Allergies and Home Medications Allergies Uncoded Allergies: IV contrast (Allergy, Unknown, 03/11/20) Home Medications Alprazolam 1 Mg Tablet, 0.5 MG PO DAILY PRN for ANXIETY, (Reported) Alprazolam 1 Mg Tablet, 1 MG PO HS PRN for ANXIETY, (Reported) Amiodarone HCl 200 Mg Tablet, 200 MG PO DAILY Prescribed by: JUAN MANUEL EVANS on 05/02/20 1023 Apixaban 5 Mg Tablet, 5 MG PO BID, (Reported) Atorvastatin Calcium 40 Mg Tablet, 40 MG PO DAILY, (Reported) Cephalexin 500 Mg Tablet, 500 MG PO TID Prescribed by: KACY MARC on 09/05/202054 Levothyroxine Sodium 50 Mcg Tablet, 50 MCG PO DAILY, (Reported) Lisinopril 10 Mg Tablet, 10 MG PO DAILY, (Reported) Meclizine HCl 25 Mg Tablet, 12.5 MG PO TID PRN for DIZZINESS Prescribed by: JUAN MANUEL EVANS on 05/02/20 1023 Oxycodone HCl 10 Mg Tablet, 10 MG PO Q6H PRN for PAIN-SEVERE (8-10), (Reported) Potassium Chloride 10 Meq Tablet.er, 10 MEQ PO DAILY@0700 Prescribed by: JUAN MANUEL EVANS on 04/03/20 0957 Patient Home Medication List Home Medication List Reviewed: Yes Review of Systems Review of Systems Constitutional: see HPI, chills, dizziness, fever, malaise EENTM: No Blurred Vision; Nose Congestion Respiratory: See HPI, Cough Cardiovascular: See HPI, Chest Pain (with cough) Gastrointestinal: See HPI Genitourinary: No Symptoms Reported Musculoskeletal: see HPI Skin: No rash Psychiatric/Neurological: Headache (sinus pressure) Past Icxpukj-Fwdidy-Uzcccq Hx Past Med/Social Hx: Reviewed Nursing Past Med/Soc Hx Patient Social History Type Used: Cigarettes Former Smoker, Quit: Jul 12, 1985 2nd Hand Smoke Exposure: No Recent Foreign Travel: No Contact w/Someone Who Travel: No Recent Hopitalizations: No Immunizations Up To Date Tetanus Booster (TDap): Unknown Date of Pneumonia Vaccine: Jul 21, 2018 Date of Influenza Vaccine: Jul 21, 2018 Seasonal Allergies Seasonal Allergies: No Past Medical History Surgeries: Yes (Cardiac Ablation, spleenectomy) Appendectomy, Bowel Surgery Respiratory: Yes Pulmonary Embolism Cardiac: Yes Atrial Fibrillation, High Cholesterol, Hypertension, Irregular Heartbeat Neurological: Yes Headaches /Migraines Reproductive Disorders: No Sexually Transmitted Disease: Yes (Hep C: treated) HIV/AIDS: No Genitourinary: No Prostate Problems Gastrointestinal: Yes (COLON CA WITH SURGICAL INTERVENTION) Diverticulosis, Hemorrhoids Musculoskeletal: Yes Arthritis, Chronic Back Pain Endocrine: Yes Hypothyroidsim HEENT: No Loss of Vision: Denies Hearing Impairment: Denies Cancer: Yes Colon Did You Recieve Any Treatments: Yes What Type of Treatment Did You: Surgical Intervention Psychosocial: Yes Anxiety, Depression Integumentary: No Blood Disorders: No Adverse Reaction/Blood Tranf: No Family Medical History FH: emphysema 19 MOTHER FH: lung cancer 19 FATHER Heart Disease, Hypertension Physical Exam Vital Signs Vital Signs - First Documented 09/05/20 18:35 Temp 37.3 Pulse 87 Resp 23 B/P (MAP) 167/85 (112) Pulse Ox 97 O2 Delivery Room Air Capillary Refill : Height, Weight, BMI Height: 6'0" Weight: 224lbs. 0oz. [id number]; 39.30 BMI Method:Stated General Appearance: No Apparent Distress, WD/WN HEENT: PERRL/EOMI, Pharynx Normal, TM Abnormal (L) (dullness), TM Abnormal (R) (dullness) Neck: Full Range of Motion, Normal Inspection, Supple Respiratory: Chest Non Tender, Normal Breath Sounds, No Accessory Muscle Use, No Respiratory Distress, Decreased Breath Sounds Cardiovascular: Regular Rate, Rhythm, Normal Peripheral Pulses Gastrointestinal: No Pulsatile Mass, Non Tender, Soft Extremity: Normal Capillary Refill, Normal Range of Motion, No Calf Tenderness, No Pedal Edema Neurologic/Psychiatric: Alert, Oriented x3, No Motor/Sensory Deficits Skin: Normal Color, Warm/Dry Focused Exam Lactate Level 09/05/20 19:05: Lactic Acid Level 1.21 Lactic Acid Level Laboratory Tests Test 09/05/20 19:05 Lactic Acid Level 1.21 MMOL/L (0.50-2.00) Procedures/Interventions Date of ETT Placement: Mar 13, 2020 Time of ETT Placement: 729 Progress/Results/Core Measures Results/Orders Lab Results Laboratory Tests Test 09/05/20 18:32 09/05/20 19:05 Range/Units White Blood Count 9.3 4.3-11.0 10^3/uL Red Blood Count 5.17 4.35-5.85 10^6/uL Hemoglobin 12.0 L 13.3-17.7 G/DL Hematocrit 37 L 40-54 % Mean Corpuscular Volume 72 L 80-99 FL Mean Corpuscular Hemoglobin 23 L 25-34 PG Mean Corpuscular Hemoglobin Concent 32 32-36 G/DL Red Cell Distribution Width 19.8 H 10.0-14.5 % Platelet Count 404 H 130-400 10^3/uL Mean Platelet Volume 10.4 7.4-10.4 FL Immature Granulocyte % (Auto) 0 % Neutrophils (%) (Auto) 59 42-75 % Lymphocytes (%) (Auto) 20 12-44 % Monocytes (%) (Auto) 13 H 0-12 % Eosinophils (%) (Auto) 7 0-10 % Basophils (%) (Auto) 1 0-10 % Neutrophils # (Auto) 5.5 1.8-7.8 X 10^3 Lymphocytes # (Auto) 1.8 1.0-4.0 X 10^3 Monocytes # (Auto) 1.2 H 0.0-1.0 X 10^3 Eosinophils # (Auto) 0.7 H 0.0-0.3 10^3/uL Basophils # (Auto) 0.1 0.0-0.1 10^3/uL Immature Granulocyte # (Auto) 0.0 0.0-0.1 10^3/uL Sodium Level 138 135-145 MMOL/L Potassium Level 3.6 3.6-5.0 MMOL/L Chloride Level 105 98-107 MMOL/L Carbon Dioxide Level 23 21-32 MMOL/L Anion Gap 10 5-14 MMOL/L Blood Urea Nitrogen 15 7-18 MG/DL Creatinine 1.33 H 0.60-1.30 MG/DL Estimat Glomerular Filtration Rate 55 BUN/Creatinine Ratio 11 Glucose Level 123 H 70-105 MG/DL Calcium Level 9.4 8.5-10.1 MG/DL Corrected Calcium 9.4 8.5-10.1 MG/DL Total Bilirubin 0.5 0.1-1.0 MG/DL Aspartate Amino Transf (AST/SGOT) 15 5-34 U/L Alanine Aminotransferase (ALT/SGPT) 14 0-55 U/L Alkaline Phosphatase 135 40-136 U/L C-Reactive Protein 0.74 H <0.50 MG/DL Total Protein 7.0 6.4-8.2 GM/DL Albumin 4.0 3.2-4.5 GM/DL Lactic Acid Level 1.21 0.50-2.00 MMOL/L My Orders Orders - KACY MARC MD Ekg Tracing (09/05/20 18:31) Cbc With Automated Diff (09/05/20 18:59) Comprehensive Metabolic Panel (09/05/20 18:59) Chest 1 View Ap/Pa Only (09/05/20 18:59) Ed Iv/Invasive Line Start (09/05/20 18:59) Monitor-Rhythm Ecg Trace Only (09/05/20 18:59) Crp Fs (09/05/20 18:59) Ct Head/Maxillofacial Wo (09/05/20 18:59) Lactic Acid Analyzer (09/05/20 19:01) Cephalexin Capsule (Keflex Capsule) (09/05/20 20:52) Vital Signs/I&O 09/05/20 09/05/20 09/05/20 18:35 18:39 20:58 Temp 37.3 Pulse 87 76 Resp 23 20 B/P (MAP) 167/85 (112) 143/99 Pulse Ox 97 98 O2 Delivery Room Air Room Air Room Air Progress Progress Note #1: Progress Note check labs, ECG, CXR and CT head/sinus to look for infection and reason for he adache/sinus pressure. Progress Note #2: Progress Note ECG without acute changes compared to his prior tracings in the system. labs stable without acute changes. normal lactic acid. CXR without acute significant abnormality and no definite infiltrate. CT head/sinuses no acute findings. 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 With his subjective fever/chills then he may still have more of a viral infection or mild early bacterial infection. Since he is set to do cardiac t esting and surgery in next 10-14 days at will see about doing short course of keflex to help cover for possible sinus disease with his dull TM bilaterally and drainage with congestion and cough, fever and body aches. He did not want a Covid test as he states he is to do one Wednesday at . Initial ECG Impression Date: Sep 05, 2020 Initial ECG Impression Time: 18:30 Initial ECG Rate: 87 Initial ECG Rhythm: Normal Sinus Initial ECG Comparisson: Unchanged Comment sinus rhythm with a heart rate of 87 bpm. Left anterior fascicular block. QT interval 399 ms with a QTc interval 480 ms. WA interval [address] elevation. Appears similar to prior tracings in the system. Diagnostic Imaging Diagonstic Imaging: Xray Plain Films/CT/US/NM/MRI: chest Comments [facility] [place] NAME: JUAN CARLOS [facility]FFNEY [facility] REC#: [id number] PT STATUS: REG ER : 1960 PHYSICIAN: KACY MARC MD ADMIT DATE: 09/05/20/ER FS Draft Date of Exam:09/05/20 CHEST 1 VIEW AP/PA ONLY INDICATION: cough, congestion COMPARISON: 08/03/2020 FINDINGS: Single frontal view of the chest demonstrates normal heart size and pulmonary vascularity. The lungs are show minimal patchy left basilar airspace disease. Otherwise, lungs are clear. There is no large effusion or pneumothorax. The visualized osseous structures show no acute abnormalities. IMPRESSION: 1. Probable minimal left basilar atelectasis. Dictated on workstation # [id number] Dict: 09/05/201941 Trans: 09/05/201943 [facility] [id number] Interpreted by: PEDRITO ROY MD Electronically signed by: Diagonstic Imaging: CT Plain Films/CT/US/NM/MRI: facial bones, head Comments [facility] [place] [place] NAME: JUAN CARLOS GAFFNEY [facility] REC#: [id number] PT STATUS: REG ER : 1960 PHYSICIAN: KACY MARC MD ADMIT DATE: 09/05/20/ER FS Draft Date of Exam:09/05/20 CT HEAD/MAXILLOFACIAL WO PROCEDURE: CT head and maxillofacial without contrast. TECHNIQUE: Multiple contiguous axial images were obtained through the head and facial bones without the use of intravenous contrast. Auto Exposure Controls were utilized during the CT exam to meet ALARA standards for radiation dose reduction. INDICATION: Headache. Sinus pressure. Dizziness. COMPARISON: 04/06/2020 FINDINGS: CT head: The ventricles and cortical sulci are diffusely prominent, compatible with age-related volume loss. There is no midline shift or mass-effect. No acute intra-axial hemorrhage is seen. There are no abnormal areas of increased or decreased density to suggest acute hemorrhage or edema. No extra-axial masses or collections are present. The bony calvarium is intact. CT FACIAL BONES: There is no acute fracture of the facial bones. Zygomatic arches are intact, bilaterally. Medial and lateral pterygoid plates are intact as well. Additionally, there is no acute fracture or dislocation of the included portions of the mandible. There is prominent groundglass density of the base of the right sphenoid extending into the posterior right orbital region as well as inferomedially to the right sphenoid sinus region. Appearance is consistent with fibrous dysplasia and is stable when compared to 12/22/2007. There is no fracture of the orbits nor of the paranasal sinuses. No abnormal air-fluid levels are seen. Nasal septum and nasal bones are intact. The globes are symmetric. There is supraorbital foreign body on the right. IMPRESSION: 1. No acute intracranial abnormality. No CT evidence of mass, acute infarct or intracranial hemorrhage. 2. No acute fracture or dislocation of the visualized facial bones. 3. Stable thickening and groundglass density of the right sphenoid extending to the right orbit and sphenoid sinus consistent with underlying fibrous dysplasia. Dictated on workstation # [id number] Dict: 09/05/201949 Trans: 09/05/201957 [facility] [id number] Interpreted by: PEDRITO ROY MD Electronically signed by: Departure Impression Primary Impression: Upper respiratory infection with cough and congestion Additional Impressions: Sinus pressure Acute viral syndrome Disposition: 01 HOME, SELF-CARE Condition: Stable Departure-Patient Inst. Decision time for Depature: 20:55 Referrals: [facility] (PCP) Primary Care Physician NIKKI WILEY APRN (Family) Primary Care Physician Patient Instructions: Upper Respiratory Infection ED, Viral Syndrome (DC), Sinusitis, Adult ED Add. Discharge Instructions: Encourage fluids and rest. Follow up with clinic for continued concerns. Take full course of antibiotics to help with your sinus drainage and congestion. Use a humidifier or vaporizer to help with congestion while you sleep. Scripts Cephalexin (Cephalexin) 500 Mg Tablet 500 MG PO TID for 7 Days, #20 TAB 0 Refills Prov: KACY MARC MD 09/05/20 KACY MARC MD Sep 05, 2020 18:31
[2020-09-05 19:08] LABS: HEMATOCRIT 37 % (40-54); MEAN CORPUSCULAR HEMOGLOBIN 23 PG (25-34); MEAN CORPUSCULAR HGB CONC 32 G/DL (32-36); MEAN CORPUSCULAR VOLUME 72 FL (80-99); MEAN PLATELET VOLUME 10.4 FL (7.4-10.4); NEUTROPHILS % (AUTO) 59 % (42-75); PLATELET COUNT 404 10^3/uL (130-400); WHITE BLOOD COUNT 9.3 10^3/uL (4.3-11.0)
[2020-09-05 19:09] LABS: BASOPHILS # (AUTO) 0.1 10^3/uL (0.0-0.1); BASOPHILS % (AUTO) 1 % (0-10); EOSINOPHILS # (AUTO) 0.7 10^3/uL (0.0-0.3); EOSINOPHILS % (AUTO) 7 % (0-10); LYMPHOCYTES # (AUTO) 1.8 X 10^3 (1.0-4.0); LYMPHOCYTES % (AUTO) 20 % (12-44); MONOCYTES # (AUTO) 1.2 X 10^3 (0.0-1.0); MONOCYTES % (AUTO) 13 % (0-12); NEUTROPHILS # (AUTO) 5.5 X 10^3 (1.8-7.8)
[2020-09-05 19:22] LABS: POTASSIUM 3.6 MMOL/L (3.6-5.0)
[2020-09-05 19:23] LABS: BILIRUBIN,TOTAL 0.5 MG/DL (0.1-1.0); CALCIUM 9.4 MG/DL (8.5-10.1); CREATININE SERUM 1.33 MG/DL (0.60-1.30)
--- NOTE | 2020-09-05 19:44 | Diagnostic Imaging Report ---
INDICATION: cough, congestion COMPARISON: 08/03/2020 FINDINGS: Single frontal view of the chest demonstrates normal heart size and pulmonary vascularity. The lungs are show minimal patchy left basilar airspace disease. Otherwise, lungs are clear. There is no large effusion or pneumothorax. The visualized osseous structures show no acute abnormalities. IMPRESSION: 1. Probable minimal left basilar atelectasis. Dictated by: Dictated on workstation # [id number]
--- NOTE | 2020-09-05 19:59 | Diagnostic Imaging Report ---
PROCEDURE: CT head and maxillofacial without contrast. TECHNIQUE: Multiple contiguous axial images were obtained through the head and facial bones without the use of intravenous contrast. Auto Exposure Controls were utilized during the CT exam to meet ALARA standards for radiation dose reduction. INDICATION: Headache. Sinus pressure. Dizziness. COMPARISON: 04/06/2020 FINDINGS: CT head: The ventricles and cortical sulci are diffusely prominent, compatible with age-related volume loss. There is no midline shift or mass-effect. No acute intra-axial hemorrhage is seen. There are no abnormal areas of increased or decreased density to suggest acute hemorrhage or edema. No extra-axial masses or collections are present. The bony calvarium is intact. CT FACIAL BONES: There is no acute fracture of the facial bones. Zygomatic arches are intact, bilaterally. Medial and lateral pterygoid plates are intact as well. Additionally, there is no acute fracture or dislocation of the included portions of the mandible. There is prominent groundglass density of the base of the right sphenoid extending into the posterior right orbital region as well as inferomedially to the right sphenoid sinus region. Appearance is consistent with fibrous dysplasia and is stable when compared to 12/22/2007. There is no fracture of the orbits nor of the paranasal sinuses. No abnormal air-fluid levels are seen. Nasal septum and nasal bones are intact. The globes are symmetric. There is supraorbital foreign body on the right. IMPRESSION: 1. No acute intracranial abnormality. No CT evidence of mass, acute infarct or intracranial hemorrhage. 2. No acute fracture or dislocation of the visualized facial bones. 3. Stable thickening and groundglass density of the right sphenoid extending to the right orbit and sphenoid sinus consistent with underlying fibrous dysplasia. Dictated by: Dictated on workstation # [id number]
[2020-09-05] MEDS ORDERED: CEPHALEXIN 250 MG (KEFLEX) CAP PO STA (20:52)
[2020-09-05] MEDS ORDERED: CEPH500T PO (20:55)
[2020-09-05 20:58] VITALS: BP 143/99
== END 2020-09-05 21:02 | disposition home or self-care (01) ==
LOC: EDUNIT# 18:17 → ER FS 18:18
DX: J06.9 Acute upper respiratory infection, unspecified (principal); L98.8 Other specified disorders of the skin and subcutaneous tissue; B34.9 Viral infection, unspecified; F41.9 Anxiety disorder, unspecified; E03.9 Hypothyroidism, unspecified; I10 Essential (primary) hypertension; G89.29 Other chronic pain; I48.91 Unspecified atrial fibrillation; M54.9 Dorsalgia, unspecified; E78.00 Pure hypercholesterolemia, unspecified; Z82.49 Family history of ischemic heart disease and other diseases of the circulatory system; Z80.1 Family history of malignant neoplasm of trachea, bronchus and lung; Z85.038 Personal history of other malignant neoplasm of large intestine; Z87.891 Personal history of nicotine dependence; Z86.711 Personal history of pulmonary embolism; Z79.890 Hormone replacement therapy; Z91.041 Radiographic dye allergy status; Z79.01 Long term (current) use of anticoagulants; Z79.891 Long term (current) use of opiate analgesic
CPT/HCPCS: 36415; 70450; 70486; 71045; 80053; 83605; 85025; 86141; 93041

== ENCOUNTER 2020-09-20 15:09 | Emergency (ER) | payer MEDICAID ==
[~2020-09-20] VITALS: Ht 182.8 cm; Wt 93.7 kg
[~2020-09-20 15:09] MED LIST changes: +CEPH500T PO
--- NOTE | 2020-09-20 15:12 | ED Lower Extremity ---
General Stated Complaint: PAINFUL BUMP ON RT LEG Source: patient Exam Limitations: no limitations History of Present Illness Date Seen by Provider: Sep 20, 2020 Time Seen by Provider: 15:14 Initial Comments 59-year-old male presents with painful "bump" on his right leg. Patient reports that he awoke with it. He denies any known trauma. It is tender to palpation and somewhat firm. Patient reports she is concerned because he is on a blood thinner. Patient does not have any color change. He is able to ambulate without difficulty. No other systemic complaints. Allergies and Home Medications Allergies Uncoded Allergies: IV contrast (Allergy, Unknown, 03/11/20) Home Medications Alprazolam 1 Mg Tablet, 0.5 MG PO DAILY PRN for ANXIETY, (Reported) Alprazolam 1 Mg Tablet, 1 MG PO HS PRN for ANXIETY, (Reported) Amiodarone HCl 200 Mg Tablet, 200 MG PO DAILY Prescribed by: JUAN MANUEL EVANS on 05/02/20 1023 Apixaban 5 Mg Tablet, 5 MG PO BID, (Reported) Atorvastatin Calcium 40 Mg Tablet, 40 MG PO DAILY, (Reported) Cephalexin 500 Mg Tablet, 500 MG PO TID Prescribed by: KACY MARC on 09/05/202054 Levothyroxine Sodium 50 Mcg Tablet, 50 MCG PO DAILY, (Reported) Lisinopril 10 Mg Tablet, 10 MG PO DAILY, (Reported) Meclizine HCl 25 Mg Tablet, 12.5 MG PO TID PRN for DIZZINESS Prescribed by: JUAN MANUEL EVANS on 05/02/20 1023 Oxycodone HCl 10 Mg Tablet, 10 MG PO Q6H PRN for PAIN-SEVERE (8-10), (Reported) Potassium Chloride 10 Meq Tablet.er, 10 MEQ PO DAILY@0700 Prescribed by: JUAN MANUEL EVANS on 04/03/20 0957 Patient Home Medication List Home Medication List Reviewed: Yes Review of Systems Constitutional: no symptoms reported EENTM: no symptoms reported Respiratory: no symptoms reported Cardiovascular: no symptoms reported Gastrointestinal: no symptoms reported Genitourinary: no symptoms reported Musculoskeletal: see HPI Skin: see HPI Psychiatric/Neurological: No Symptoms Reported Past Ilouusl-Wbmpco-Ojatxo Hx Patient Social History Type Used: Cigarettes Former Smoker, Quit: Jul 12, 1985 2nd Hand Smoke Exposure: No Recent Foreign Travel: No Contact w/Someone Who Travel: No Recent Hopitalizations: No Immunizations Up To Date Tetanus Booster (TDap): Unknown Date of Pneumonia Vaccine: Jul 21, 2018 Date of Influenza Vaccine: Jul 21, 2018 Seasonal Allergies Seasonal Allergies: No Past Medical History Surgeries: Yes (Cardiac Ablation, spleenectomy) Appendectomy, Bowel Surgery Respiratory: Yes Pulmonary Embolism Cardiac: Yes Atrial Fibrillation, High Cholesterol, Hypertension, Irregular Heartbeat Neurological: Yes Headaches /Migraines Reproductive Disorders: No Sexually Transmitted Disease: Yes (Hep C: treated) HIV/AIDS: No Genitourinary: No Prostate Problems Gastrointestinal: Yes (COLON CA WITH SURGICAL INTERVENTION) Diverticulosis, Hemorrhoids Musculoskeletal: Yes Arthritis, Chronic Back Pain Endocrine: Yes Hypothyroidsim HEENT: No Loss of Vision: Denies Hearing Impairment: Denies Cancer: Yes Colon Did You Recieve Any Treatments: Yes What Type of Treatment Did You: Surgical Intervention Psychosocial: Yes Anxiety, Depression Integumentary: No Blood Disorders: No Adverse Reaction/Blood Tranf: No Family Medical History FH: emphysema 19 MOTHER FH: lung cancer 19 FATHER Heart Disease, Hypertension Physical Exam Vital Signs Vital Signs - First Documented 09/20/20 15:13 Temp 37.7 Pulse 96 Resp 16 B/P (MAP) 109/66 (80) Pulse Ox 94 O2 Delivery Room Air Capillary Refill : Height, Weight, BMI Height: 6'0" Weight: 224lbs. 0oz. 101.377099ee; 29.00 BMI Method:Stated General Appearance: WD/WN Neck: full range of motion Cardiovascular: normal peripheral pulses, regular rate, rhythm Respiratory: no respiratory distress, no accessory muscle use Hips: bilateral hip non-tender Legs: right leg soft tissue tenderness, right leg swelling (midshin right lower leg) Knees: bilateral knee non-tender Ankles: bilateral ankle non-tender Feet: bilateral foot non-tender Neurologic/Tendon: normal sensation, normal tendon functions Neurologic/Psychiatric: alert, normal mood/affect, oriented x 3 Skin: other (mild swelling mid right lower leg, firm tender but no color change, erythema or warmth) Procedures/Interventions Date of ETT Placement: Mar 13, 2020 Time of ETT Placement: 0730 Progress/Results/Core Measures Results/Orders My Orders Orders - SANTA CALDERA DO Tibia Fibula 2 View Right (09/20/20 15:17) Vital Signs/I&O 09/20/20 15:13 Temp 37.7 Pulse 96 Resp 16 B/P (MAP) 109/66 (80) Pulse Ox 94 O2 Delivery Room Air Departure Impression Primary Impression: Contusion of right lower leg, initial encounter Disposition: HOME, SELF-CARE Condition: Stable Departure-Patient Inst. Referrals: [facility] (PCP) Primary Care Physician NIKKI WILEY APRN (Family) Primary Care Physician Patient Instructions: Contusion (DC), Minor Contusion ED, Taking Care of Bruises Add. Discharge Instructions: Follow-up with your primary care provider as needed SNATA CALDERA DO Sep 20, 2020 15:12
[2020-09-20 15:13] VITALS: BP 109/66
--- NOTE | 2020-09-20 15:34 | Diagnostic Imaging Report ---
Indication: Right lower leg injury AP lateral views of the right tibia-fibula show no fracture, dislocation or other acute abnormalities. There is a focal area of soft tissue swelling in the anterior tibial region of the right leg. IMPRESSION: No acute osseous abnormality seen. Dictated by: Dictated on workstation # [id number]
== END 2020-09-20 15:45 | disposition home or self-care (01) ==
LOC: EDUNIT# 15:09 → ER FS 15:10
DX: S80.11XA Contusion of right lower leg, initial encounter (principal); I48.91 Unspecified atrial fibrillation; G89.29 Other chronic pain; M54.9 Dorsalgia, unspecified; E78.00 Pure hypercholesterolemia, unspecified; I10 Essential (primary) hypertension; F41.9 Anxiety disorder, unspecified; E03.9 Hypothyroidism, unspecified; Z91.041 Radiographic dye allergy status; Z87.891 Personal history of nicotine dependence; Z86.711 Personal history of pulmonary embolism; Z85.038 Personal history of other malignant neoplasm of large intestine; Z79.890 Hormone replacement therapy; Z82.49 Family history of ischemic heart disease and other diseases of the circulatory system; Z80.1 Family history of malignant neoplasm of trachea, bronchus and lung; Z79.01 Long term (current) use of anticoagulants; Z79.891 Long term (current) use of opiate analgesic; X58.XXXA Exposure to other specified factors, initial encounter
CPT/HCPCS: 73590

== ENCOUNTER 2020-11-02 20:34 | Inpatient (IN) | payer MEDICAID ==
[~2020-11-02] VITALS: Ht 182.8 cm; Wt 112.7 kg
[~2020-11-02 20:34] MED LIST changes: -LISI10TA2 PO; +LISI10TA25 PO
[2020-11-02] MEDS ORDERED: NS IV 1000 ML 2,000 ML ONE (21:34)
[2020-11-02] MEDS ORDERED: NS IV 1000 ML 1,000 ML IV SCH ×2 (21:45)
[2020-11-02 21:46] LABS: BASOPHILS # (AUTO) 0.1 10^3/uL (0.0-0.1); BASOPHILS % (AUTO) 1 % (0-10); EOSINOPHILS # (AUTO) 0.4 10^3/uL (0.0-0.3); EOSINOPHILS % (AUTO) 4 % (0-10); HEMATOCRIT 38 % (40-54); HEMOGLOBIN 12.1 g/dL (13.3-17.7); LYMPHOCYTES % (AUTO) 8 % (12-44); MEAN CORPUSCULAR HEMOGLOBIN 24 pg (25-34); MEAN CORPUSCULAR HGB CONC 32 g/dL (32-36); MEAN CORPUSCULAR VOLUME 74 fL (80-99); MEAN PLATELET VOLUME 10.2 fL (9.0-12.2); MONOCYTES # (AUTO) 1.1 10^3/uL (0.0-1.0); MONOCYTES % (AUTO) 9 % (0-12); NEUTROPHILS # (AUTO) 9.8 10^3/uL (1.8-7.8); NEUTROPHILS % (AUTO) 79 % (42-75); PLATELET COUNT 457 10^3/uL (130-400); WHITE BLOOD COUNT 12.4 10^3/uL (4.3-11.0)
[2020-11-02 21:55] LABS: POTASSIUM 4.2 MMOL/L (3.6-5.0)
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
[2020-11-02 21:56] LABS: CALCIUM 9.2 MG/DL (8.5-10.1)
[2020-11-02 21:57] LABS: INR 1.2 (0.8-1.4); PROTHROMBIN TIME PATIENT 15.1 SEC (12.2-14.7)
[2020-11-02 21:59] LABS: BILIRUBIN,TOTAL 0.5 MG/DL (0.1-1.0)
[2020-11-02] MEDS ORDERED: NS IV 500 ML 500 ML IV SCH (22:00)
[2020-11-02 22:09] LABS: ALBUMIN 4.1 GM/DL (3.2-4.5); MAGNESIUM 2.5 MG/DL (1.6-2.4)
[2020-11-02 22:11] LABS: EOSINOPHILS % (MANUAL) 1 %; HYPOCHROMASIA SLIGHT; LYMPHOCYTES % (MANUAL) 7 %; MONOCYTES % (MANUAL) 5 %; NEUTROPHILS % (MANUAL) 87 %
[2020-11-02 22:12] LABS: ACANTHOCYTES MODERATE
[2020-11-02 22:15] LABS: CREATININE SERUM 1.49 MG/DL (0.60-1.30); TOTAL PROTEIN 7.1 GM/DL (6.4-8.2)
[2020-11-02 22:48] LABS: HEMOGLOBIN 9.6 g/dL (13.3-17.7); MEAN PLATELET VOLUME 10.7 fL (9.0-12.2); WHITE BLOOD COUNT 11.6 10^3/uL (4.3-11.0)
[2020-11-02] MEDS ORDERED: PIPERACILLIN SODIUM/TAZOBACTAM 4.5 GM in NS (IVPB) 100 ML IV ONE (23:15)
[2020-11-02] MEDS ORDERED: NS IV 500 ML 500 ML ONE ×2 (23:36→23:51)
[2020-11-02 23:42] VITALS: BP 89/54
[2020-11-02] MEDS ORDERED: PIPERACILLIN/TAZO 4.5 GM VIAL (ZOSYN) IV ONE (23:42)
[2020-11-02] MEDS ORDERED: NS (IVPB) 100 ML ONE (23:43)
[2020-11-02 23:59] VITALS: BP 84/54
[2020-11-02] MEDS ORDERED: HUMAN PROTHROMBIN COMPLX(PCC) 500 UNIT (KCENTRA) IV ONE (23:59)
[2020-11-03] VITALS (7 sets, daily range): BP systolic 84–140; BP diastolic 54–86
--- NOTE | 2020-11-03 00:06 | HISTORY AND PHYSICAL ---
DATE OF SERVICE: ATTENDING COMPANY DANCER: [facility]. HISTORY OF PRESENT ILLNESS: The patient is a 59-year-old male who is a poor historian. He presented with pain more in the left lower abdominal quadrant. He has a longstanding history of constipation and in the Emergency Department, underwent a digital rectal examination where there was a bolus of stool; however, after this, there was a significant amount of red blood per rectum. The patient is on apixaban for atrial fibrillation. He also did have what appears to be a left sided colon resection from what appears to be a previous history of a complicated diverticulosis. A CT scan was performed, which did show a colonic staple line along the left lower abdominal quadrant; however, there also appears to be a presacral hematoma, which may indicate a small perforation as well as bleeding below the peritoneal reflection. He is afebrile and only has a mildly elevated white count of 12.4. He is currently receiving fresh frozen plasma to reverse his anticoagulation. PAST MEDICAL HISTORY: Complicated diverticulitis, hypercholesterolemia, atrial fibrillation, hypertension, history of pulmonary embolism, hepatitis C, migraine headaches, hemorrhoids, hypothyroid, depression. PAST SURGICAL HISTORY: Left-sided colon resection, cardiac ablation and splenectomy. ALLERGIES: IV CONTRAST DYE. MEDICATIONS: Alprazolam 1 mg p.r.n., amiodarone 200 mg daily, apixaban 5 mg b.i.d., atorvastatin 40 mg daily, cephalexin 500 mg t.i.d., levothyroxine 50 mcg daily, lisinopril 10 mg daily, meclizine 25 mg t.i.d. p.r.n., oxycodone 10 mg p.r.n., potassium 10 mEq daily. SOCIAL HISTORY: Previous smoker, quit in 1984, 30 pack years. Previous alcohol. FAMILY HISTORY: Father with lung cancer. VITAL SIGNS: Temperature 36.1, blood pressure 130/61, pulse 130, respirations 24. REVIEW OF SYSTEMS: This is a well-nourished male who is a poor historian and somewhat confused, which is his normal baseline. He does not report any shortness of breath or difficulty breathing. No chest pain, palpitations, diaphoresis. No nausea, vomiting, left lower quadrant abdominal pain with rectal bleeding starting today. No fever, chills, no recent inadvertent weight loss. All other review of systems negative. PHYSICAL EXAMINATION: CHEST: Few scattered rales bilaterally. HEART: Regular, no murmurs. EXTREMITIES: No lower extremity edema, negative Homans sign. HEENT: No scleral icterus. NECK: No cervical lymphadenopathy. ABDOMEN: Soft, nondistended. There is pain in the left lower abdominal quadrant and suprapubic region upon deep palpation with voluntary guarding, no rebound. SKIN: Warm, dry. LABORATORY DATA: WBC 11.6, hemoglobin 9.6, hematocrit 30, platelets 330, BUN 18, creatinine 1.49. ASSESSMENT AND PLAN: A 59-year-old male with diverticulitis with possible microperforation with bleeding beneath the peritoneal reflection along the presacral fascia. We will proceed with bowel rest, keep him n.p.o. Proceed with IV hydration as well as IV antibiotics. We will closely monitor his clinical status as well as including abdominal pain and signs of sepsis as well as bleeding. If his clinical condition deteriorates, he may need a diverting loop colostomy to divert the fecal stream from the rectum. If he remains stable, we will continue with bowel rest, TPN and then later proceed with a Gastrografin rectal contrast study to confirm resolution of the microperforation and then proceed with a clear liquid diet and advance as tolerated. Job ID: [id number] DocumentID: [id number] Dictated Date: 11/02/2020 23:31:48 Veterinary Epidemiologist Date: 11/03/2020 00:06:24 Dictated By: IMMANUEL FRANCO MD
[2020-11-03] MEDS ORDERED: PIPERACILLIN/TAZOBACTAM 4.5 GM in NS (IVPB) 100 ML IV ONE (00:15)
[2020-11-03 00:29] LABS: BILIRUBIN,URINE NEGATIVE (NEGATIVE); CLARITY,URINE CLEAR; COLOR,URINE YELLOW; GLUCOSE, URINE (UA) NEGATIVE (NEGATIVE); KETONES,URINE NEGATIVE (NEGATIVE); LEUKOCYTE ESTERASE ,URINE NEGATIVE (NEGATIVE); NITRITE,URINE NEGATIVE (NEGATIVE); PH,URINE 5.5 (5-9); PROTEIN,URINE NEGATIVE (NEGATIVE)
[2020-11-03] MEDS: fentaNYL INJECTION 100 MCG/2 ML AMP IVP PRN ×9 (00:32→20:18)
[2020-11-03 00:43] LABS: BACTERIA,URINE NEGATIVE /HPF; HYALINE CASTS, URINE 0-2 /LPF; SQUAMOUS EPITHELIAL CELL,UR 0-2 /HPF
[2020-11-03] MEDS ORDERED: HUMAN PROTHROMBIN COMPLX(PCC) 500 UNIT (KCENTRA) IV ONE ×3 (01:00)
[2020-11-03] MEDS: NS IV 1000 ML 1,000 ML IV SCH ×3 (01:34→12:58)
[2020-11-03 03:44] LABS: BASOPHILS # (AUTO) 0.1 10^3/uL (0.0-0.1); BASOPHILS % (AUTO) 0 % (0-10); EOSINOPHILS % (AUTO) 0 % (0-10); HEMATOCRIT 27 % (40-54); HEMOGLOBIN 8.9 g/dL (13.3-17.7); LYMPHOCYTES # (AUTO) 0.4 10^3/uL (1.0-4.0); LYMPHOCYTES % (AUTO) 2 % (12-44); MEAN CORPUSCULAR HEMOGLOBIN 25 pg (25-34); MEAN CORPUSCULAR HGB CONC 33 g/dL (32-36); MEAN CORPUSCULAR VOLUME 77 fL (80-99); MEAN PLATELET VOLUME 10.7 fL (9.0-12.2); MONOCYTES # (AUTO) 1.1 10^3/uL (0.0-1.0); MONOCYTES % (AUTO) 7 % (0-12); NEUTROPHILS # (AUTO) 13.9 10^3/uL (1.8-7.8); NEUTROPHILS % (AUTO) 90 % (42-75); PLATELET COUNT 269 10^3/uL (130-400); WHITE BLOOD COUNT 15.5 10^3/uL (4.3-11.0)
[2020-11-03 03:57] LABS: ALBUMIN 3.2 GM/DL (3.2-4.5); POTASSIUM 3.7 MMOL/L (3.6-5.0)
[2020-11-03 03:58] LABS: CALCIUM 7.8 MG/DL (8.5-10.1)
[2020-11-03 04:00] LABS: TOTAL PROTEIN 5.3 GM/DL (6.4-8.2)
[2020-11-03 04:01] LABS: BILIRUBIN,TOTAL 1.1 MG/DL (0.1-1.0)
[2020-11-03 04:03] LABS: CREATININE SERUM 1.3 MG/DL (0.60-1.30); PHOSPHORUS 1.5 MG/DL (2.3-4.7)
[2020-11-03 04:06] LABS: MAGNESIUM 1.7 MG/DL (1.6-2.4)
[2020-11-03] MEDS ORDERED: NS (IVPB) 100 ML ONE ×2 (06:37→06:38)
[2020-11-03] MEDS ORDERED: PIPERACILLIN/TAZO 4.5 GM VIAL (ZOSYN) IV ONE (06:37)
[2020-11-03] MEDS: PIPERACILLIN/TAZO 4.5 GM/NS 100 ML IV SCH ×6 (06:47→22:00)
--- NOTE | 2020-11-03 06:48 | Diagnostic Imaging Report ---
Indication: Dyspnea with generalized weakness and abdominal pain. Comparison: 09/05/2020. Discussion: Single portable supine view of the chest was obtained. Normal heart size. No consolidation, pleural fluid, or pneumothorax. No osseous abnormality. Impression: 1. Negative portable chest. Dictated by: Dictated on workstation # [id number]
--- NOTE | 2020-11-03 06:49 | Diagnostic Imaging Report ---
EXAMINATION: CT Abdomen Pelvis without contrast. TECHNIQUE: Multiple contiguous axial images were obtained through the abdomen and pelvis without the use of intravenous contrast. All CT scans use one or more of the following dose optimizing techniques: automated exposure control, MA and/or KvP adjustment based on a patient size and exam type, or iterative reconstruction. HISTORY: LLQ PAIN, RECTAL BLEEDING COMPARISON: CT abdomen and pelvis 03/11/2020. FINDINGS: Lung bases: Bibasilar dependent atelectasis. Solid organs: The liver is normal. The gallbladder is normal. There is no biliary ductal dilation. Pancreas is normal. The spleen appears surgically absent. There are multiple small splenules in the left upper quadrant. Adrenal glands are normal. There is a nonobstructing 3 mm left renal calculus. No hydronephrosis. Bowel: The stomach and small bowel are normal without obstruction. There appears to be a perforation of the left posterior quadrant of the rectum with surrounding hyperdense material (series 2 image 87). Perforation measures approximately 9.2 cm from the anal verge. There are surgical changes of the distal colon. Scattered colonic diverticulosis. No findings of acute appendicitis. Peritoneum: Small amount of hyperdense fluid within the presacral space (series 2 image 78). There is a mild amount of mesenteric stranding which is nonspecific. No suspicious lymphadenopathy. Vasculature: Calcification of the aorta without aneurysm. Musculoskeletal: Degenerative changes of the spine without suspicious osseous lesion or compression fracture. Pelvis: The prostate gland is normal. The urinary bladder is normal. IMPRESSION: 1. Suspected perforation of the left posterior rectum approximately 9.2 cm from the anal verge. There is adjacent hyperdense material which is concerning for hemorrhage. This could be secondary to an infectious or inflammatory proctitis. Recommend correlation with colonoscopy to exclude underlying neoplasm at this location. 2. Nonobstructing left renal calculi measuring up to 0.3 cm without hydronephrosis. 3. Agree with preliminary interpretation. Dictated by: Dictated on workstation # [id number]
--- NOTE | 2020-11-03 07:21 | Diagnostic Imaging Report ---
Indication: Dyspnea. Anemia. Comparison: 11/02/2020. Discussion: Single portable upright view of the chest was obtained. Low lung volumes. Focal infiltrate is noted within the left lung base, likely atelectasis given poor inspiratory effort. Stable normal heart size. No pleural fluid or pneumothorax. No osseous abnormality. Impression: 1. Poor inspiratory effort with new linear infiltrate within the left lung base, likely atelectasis. Dictated by: Dictated on workstation # [id number]
[2020-11-03] MEDS ORDERED: FLEC100T PO (08:27)
[2020-11-03] MEDS ORDERED: LEVO75TA6 PO (08:27)
[2020-11-03] MEDS ORDERED: OXYC-556 PO (08:27)
[2020-11-03] MEDS: PANTOPRAZOLE 40 MG (PROTONIX) VIAL IV SCH (08:31)
[2020-11-03] MEDS ORDERED: LORazepam INJ 2 MG/ML (ATIVAN) VIAL ONE (10:00)
[2020-11-03] MEDS ORDERED: TPN IV SCH (10:30)
[2020-11-03] MEDS ORDERED: POTASSIUM PHOSPHATE INJ 30 MM in NS IV 500 ML 500 ML IV NR (11:00)
--- NOTE | 2020-11-03 11:05 | Diagnostic Imaging Report ---
INDICATION: Post central line placement EXAMINATION: Chest 11/03/2020. COMPARISON: 11/03/2020 at 3:51 a.m. FINDINGS: Single view chest. There is a left-sided central line with the tip in the mid SVC. Heart and pulmonary vasculature stable from recent. There is atelectasis at the left lung base with remaining chest similar to previous imaging. No effusions or pneumothorax. IMPRESSION: 1. Central line tip as above. Remaining chest stable. Dictated by: Dictated on workstation # [id number]
[2020-11-03 13:24] LABS: INR 1.1 (0.8-1.4); PROTHROMBIN TIME PATIENT 14.9 SEC (12.2-14.7)
--- NOTE | 2020-11-03 15:34 | OPERATIVE REPORT ---
DATE OF SERVICE: 11/03/2020 ATTENDING SUBASSEMBLER: [facility]. PREOPERATIVE DIAGNOSIS: Rectal bleed with likely extraperitoneal rectal tear. POSTOPERATIVE DIAGNOSIS: Rectal bleed with likely extraperitoneal rectal tear. PROCEDURE PERFORMED: Placement of a left subclavian central venous catheter. SURGEON: Immanuel Franco MD. USABILITY SPECIALIST: Checo Solano APRN. ANESTHESIA: Local. ESTIMATED BLOOD LOSS: Minimal. DISPOSITION: The patient tolerated the procedure well. INDICATIONS FOR PROCEDURE: The patient is a 59-year-old male, who presented with lower abdominal quadrant pain. He has a longstanding history of constipation and states that he manually disimpact himself; however, this time around used an object, which caused a significant amount of rectal bleeding. A CT scan was performed, which did not show any free intraabdominal air, only a small amount of fluid behind the rectum and the presacral space, likely some level of rectal mucosal tear and bleeding. Since being admitted and given fresh frozen plasma as well as blood for being anticoagulated with abixaban BID. Since then he appears to have stopped bleeding. He does not have any peritoneal signs. He is also afebrile. DESCRIPTION OF PROCEDURE: The chest and neck were prepped and draped in a standard surgical fashion. A 1% lidocaine was used to anesthetize the overlying skin in the subclavian region. The left subclavian vein was then cannulated withdrawing the venous blood. The guidewire was then inserted without any resistance. The cannulating needle was removed and a skin incision was made using 11 blade. A tract was then created using a venous dilator and through this opening, a triple lumen central venous catheter was placed over the guidewire using the Seldinger technique. The guidewire removed and all three ports luis venous blood and saline pushed in without any resistance. The catheter was sutured to the skin using 3-0 silk sutures. Catheter was then cleaned and covered with the Op-Site. The patient tolerated the procedure well. We will get a post-procedure chest x-ray. Job ID: [id number] DocumentID: [id number] Dictated Date: 11/03/2020 10:58:14 Nurse Reviewer Date: 11/03/2020 15:33:52 Dictated By: IMMANUEL FRANCO MD [facility]
[2020-11-03] MEDS ORDERED: SODIUM CHLORIDE 14.6% INJ 70 MEQ, POTASSIUM ACETATE INJ 40 MEQ, POTASSIUM PHOSPHATE INJ... IV SCH ×10 (17:00)
[2020-11-03] MEDS: LORazepam INJ 2 MG/ML (ATIVAN) VIAL IVP PRN (17:44)
[2020-11-03] MEDS: 1/2 NS IV SOLUTION 1,000 ML IV SCH ×2 (17:46→22:01)
[2020-11-04] MEDS: fentaNYL INJECTION 100 MCG/2 ML AMP IVP PRN ×7 (02:18→23:38)
[2020-11-04 04:16] LABS: BASOPHILS # (AUTO) 0.1 10^3/uL (0.0-0.1); BASOPHILS % (AUTO) 1 % (0-10); EOSINOPHILS # (AUTO) 0.4 10^3/uL (0.0-0.3); EOSINOPHILS % (AUTO) 3 % (0-10); HEMATOCRIT 26 % (40-54); HEMOGLOBIN 8.3 g/dL (13.3-17.7); LYMPHOCYTES # (AUTO) 1.5 10^3/uL (1.0-4.0); LYMPHOCYTES % (AUTO) 13 % (12-44); MEAN CORPUSCULAR HEMOGLOBIN 26 pg (25-34); MEAN CORPUSCULAR HGB CONC 31 g/dL (32-36); MEAN CORPUSCULAR VOLUME 82 fL (80-99); MEAN PLATELET VOLUME 10.8 fL (9.0-12.2); MONOCYTES # (AUTO) 1.7 10^3/uL (0.0-1.0); MONOCYTES % (AUTO) 15 % (0-12); NEUTROPHILS # (AUTO) 7.5 10^3/uL (1.8-7.8); NEUTROPHILS % (AUTO) 67 % (42-75); PLATELET COUNT 258 10^3/uL (130-400); WHITE BLOOD COUNT 11.2 10^3/uL (4.3-11.0)
[2020-11-04 04:25] LABS: ALBUMIN 3.1 GM/DL (3.2-4.5); CHLORIDE 112 MMOL/L (98-107); POTASSIUM 4.3 MMOL/L (3.6-5.0); SODIUM 139 MMOL/L (135-145)
[2020-11-04 04:27] LABS: CALCIUM 7.7 MG/DL (8.5-10.1); INR 1.1 (0.8-1.4); PROTHROMBIN TIME PATIENT 14.5 SEC (12.2-14.7)
[2020-11-04 04:28] LABS: GLUCOSE 180 MG/DL (70-105); TOTAL PROTEIN 5.4 GM/DL (6.4-8.2); TRIGLYCERIDES 84 MG/DL (<150)
[2020-11-04 04:29] LABS: CARBON DIOXIDE 20 MMOL/L (21-32)
[2020-11-04 04:30] LABS: BILIRUBIN,TOTAL 0.7 MG/DL (0.1-1.0)
[2020-11-04 04:31] LABS: ALKALINE PHOSPHATASE 87 U/L (40-136); PHOSPHORUS 2.1 MG/DL (2.3-4.7)
[2020-11-04 04:32] LABS: CREATININE SERUM 1.16 MG/DL (0.60-1.30); GFR ESTIMATED > 60
[2020-11-04 04:33] LABS: BUN/CREATININE RATIO 17
[2020-11-04 04:35] LABS: ALANINE AMINOTRANSFERASE 12 U/L (0-55); MAGNESIUM 1.9 MG/DL (1.6-2.4)
[2020-11-04] MEDS: PIPERACILLIN/TAZO 4.5 GM/NS 100 ML IV SCH ×6 (06:06→22:24)
--- NOTE | 2020-11-04 07:39 | Diagnostic Imaging Report ---
EXAM: CHEST 1 VIEW, AP/PA ONLY INDICATION: Acute blood loss. Anemia. COMPARISON: Chest radiograph 11/03/2020. FINDINGS: Normal heart size and central pulmonary vascularity. Left PICC tip mid SVC. Mild atelectasis or infiltrate and left lung base is stable. No large pleural effusion or pneumothorax. Surgical clips LUQ. IMPRESSION: 1. Stable mild atelectasis or infiltrate left lung base. 2. Left PICC tip mid SVC. Dictated by: Dictated on workstation # [id number]
--- NOTE | 2020-11-04 08:08 | Consultation-Cardiology ---
HPI-Cardiology Cardiology Consultation: Date of Consultation 11/04/20 Time Seen by a Provider: 08:15 Date of Admission 11-02-20 Attending Physician Immanuel Lou MD Admitting Physician [facility] Consulting Physician Curt Hurd MD HPI: Chief Complaint: PAF OAC Mr. Gaffney is a 59 yr old male admitted to ICU 10 from the ED with GI bleed. He reports he has a h/o a-fib for which he follows with Dr. Rodriguez at [facility]. He reports he saw Dr. Rodriguez last month. He states he has been on Eliquis BID. He reports he felt something pop in his LLQ and then had bright red blood from his rectum. He reports continued abdominal discomfort. No c/o CP, palpitations, dyspnea or LE swelling. Review of Systems-Cardiology Review of Systems Constitutional: No chills, No fever, No malaise Eyes: No vision change Ears/Nose/Throat: No epistaxis, No recent hearing loss Respiratory: As described under HPI Cardiovascular: As described under HPI Gastrointestinal: No constipation, No diarrhea, No nausea, No vomiting Genitourinary: No dysuria, No hematuria Musculoskeletal: no symptoms reported Skin: No rash on exposed areas, No ulcerations on exposed areas Psychiatric/Neurological: No anxiety, No depression, No seizure, No focal weakness, No syncope Hematologic: No bleeding abnormalities HOS-Pdgfrm-Ysxrfz Hx Patient Social History Smoking Status: Former Smoker 2nd Hand Smoke Exposure: No Immunizations Up To Date Tetanus Booster (TDap): Unknown Date of Pneumonia Vaccine: Jul 21, 2018 Date of Influenza Vaccine: Jun 20, 2020 Past Medical History PMH As described under Assessment. Family Medical History Family Medical History: He does not report any family h/o CAD. Family History: FH: emphysema 19 MOTHER FH: lung cancer 19 FATHER Allergies and Home Medications Allergies Uncoded Allergies: IV contrast (Allergy, Unknown, 03/11/20) Home Medications Alprazolam 1 Mg Tablet, 1 MG PO BID PRN for ANXIETY, (Reported) Apixaban 5 Mg Tablet, 5 MG PO BID, (Reported) Atorvastatin Calcium 40 Mg Tablet, 40 MG PO DAILY, (Reported) Flecainide Acetate 100 Mg Tablet, 100 MG PO DAILY PRN for AFIB SYMPTOMS, (Reported) IF AFTER 15-30 MINUTES SYMPTOMS COMTINUE TAKE 1 ADDITONAL TABLET Levothyroxine Sodium 75 Mcg Tablet, 75 MCG PO DAILY, (Reported) Multivitamins with Iron 1 Each Tablet, 1 EACH PO DAILY, (Reported) Oxycodone HCl 10 Mg Tablet, 10 MG PO Q6H PRN for PAIN-SEVERE (8-10), (Reported) Patient Home Medication List Home Medication List Reviewed: Yes Physical Exam-Cardiology Physical Exam Vital Signs/I&O 11/04/20 11/05/20 11/05/20 11/05/20 20:41 00:00 01:00 04:00 Temp 36.7 37.0 Pulse 80 82 83 Resp 20 20 B/P (MAP) 101/61 (74) 101/60 (74) Pulse Ox 96 99 O2 Delivery Room Air Room Air Room Air 11/05/20 07:00 Pulse 84 11/05/20 00:00 Intake Total 2500 ml Output Total 251 ml Balance 2249 ml Capillary Refill : Less Than 3 Seconds Constitutional: AAO x 3, well-developed, well-nourished HEENT: PERRL, hearing is well preserved, oral hygience is good Neck: No carotid bruit; carotid pulses are 2 + bilaterally Respiratory: No accessory muscle use, No respiratory distress; chest expansion is symmetric, chest is bilaterally symmetric Cardiovascular: regular rate-rhythm; No JVD; S1 and S2 Gastrointestinal: tender, soft, round; No guarding; audible bowel sounds Extremities: no lower extremity edema bilateral Neurologic/Psychiatric: grossly intact (moves all extremities) Skin: No rash on exposed areas, No ulcerations on exposed areas Data Review Labs Laboratory Tests 11/04/20 10:15: Lactic Acid Level 1.27 11/04/20 11:30: Glucometer 141H 11/04/20 12:33: Lab Scanned Report Transfusion Reaction Form 11/05/20 00:29: Glucometer 126H 11/05/20 05:15: White Blood Count 13.1H, Red Blood Count 3.03L, Hemoglobin 7.8L, Hematocrit 24L, Mean Corpuscular Volume 80, Mean Corpuscular Hemoglobin 26, Mean Corpuscular Hemoglobin Concent 32, Red Cell Distribution Width 21.4H, Platelet Count 251, Mean Platelet Volume 10.5, Immature Granulocyte % (Auto) 0, Neutrophils (%) (Auto) 71, Lymphocytes (%) (Auto) 11L, Monocytes (%) (Auto) 14H, Eosinophils (%) (Auto) 3, Basophils (%) (Auto) 0, Neutrophils # (Auto) 9.3H, Lymphocytes # (Auto) 1.4, Monocytes # (Auto) 1.8H, Eosinophils # (Auto) 0.4H, Basophils # (Auto) 0.1, Immature Granulocyte # (Auto) 0.1, Sodium Level 140, Potassium Level 4.2, Chloride Level 111H, Carbon Dioxide Level 21, Anion Gap 8, Blood Urea Nitrogen 26H, Creatinine 1.03, Estimat Glomerular Filtration Rate > 60, BUN/Creatinine Ratio 25, Glucose Level 109H, Calcium Level 7.8L Microbiology 11/02/20 MRSA Screen - Final, Complete MRSA not isolated Radiology NAME: JUAN CARLOS GAFFNEY [facility] REC#: [id number] PT STATUS: ADM IN : 1960 PHYSICIAN: IMMANUEL LOU MD ADMIT DATE: 11/02/20/ICU Draft Date of Exam:11/04/20 CHEST 1 VIEW, AP/PA ONLY EXAM: CHEST 1 VIEW, AP/PA ONLY INDICATION: Acute blood loss. Anemia. COMPARISON: Chest radiograph 11/03/2020. FINDINGS: Normal heart size and central pulmonary vascularity. Left PICC tip mid SVC. Mild atelectasis or infiltrate and left lung base is stable. No large pleural effusion or pneumothorax. Surgical clips LUQ. IMPRESSION: 1. Stable mild atelectasis or infiltrate left lung base. 2. Left PICC tip mid SVC. Dictated on workstation # [id number] Dict: 11/04/20 0737 Trans: 11/04/20 0739 [facility] [id number] Interpreted by: AMANDEEP YEE MD Electronically signed by: A/P-Cardiology Assessment/Admission Diagnosis PAF, s/p ablation by Dr Rodriguez at [facility] in 2019 or 2019; pt reports to have had recurrence in February 2020 OAC with Eliquis Mild CAD consisting of mild to mod dz of the LAD that has been unchanged on card caths of 2014, 2017, and 2018 Echo of 03/31/20: LVEF 55-65%, mod MR, PASP 35-40 mmHg H/O PE and DVT in the past per report Hep C + H/O left sided colon resection H/O splenectomy Suspected perforation of the left posterior rectum approximately 9.2 cm from the anal verge. per CT of the abdomen on 11-03-20 - management per Dr. Lou Discussion and Recomendations H/O PAF with ablation tx in the past per Dr. Rodriguez - currently SR on tele Rectal bleed with likely extraperitoneal rectal tear - management per Dr. Lou OAC with Eliquis currently being held d/t bleed as noted above Currently NPO receiving TPN Monitor lab closely Further recs will be based on hospitalization We would like to thank GI and medical services for this consult GEOVANNA LOCKE Nov 04, 2020 08:08
[2020-11-04] MEDS: PANTOPRAZOLE 40 MG (PROTONIX) VIAL IV SCH (08:36)
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
[2020-11-04] MEDS ORDERED: MULT-158 PO (10:04)
[2020-11-04] MEDS ORDERED: SODIUM PHOSPHATE INJ 30 MM in NS (IVPB) 250 ML INJ ONE (10:15)
--- NOTE | 2020-11-04 12:11 | Consultation-Cardiology ---
HPI-Cardiology Cardiology Consultation: Date of Consultation 11/04/20 Time Seen by a Provider: 09:30 Date of Admission Attending Physician Georgi Lou MD Admitting Physician [facility] Consulting Physician KAYLAN FULTON MD, FACP, [facility] HPI: Chief Complaint: Reason for card consult. H/o PAF and OAC HPI Mr. Rice is a 59 yr old male admitted to ICU 10 from the ED with GI bleed. He reports he has a h/o a-fib for which he follows with Dr. Rodriguez at [facility]. He reports he saw Dr. Rodriguez last month. He states he has been on Eliquis BID. He reports he felt something pop in his LLQ and then had bright red blood from his rectum. He reports continued abdominal discomfort. No c/o CP, palpitations, dyspnea or LE swelling. Review of Systems-Cardiology Review of Systems Constitutional: No chills, No fever, No malaise Eyes: No vision change Ears/Nose/Throat: No epistaxis, No recent hearing loss Respiratory: As described under HPI Cardiovascular: As described under HPI Gastrointestinal: No constipation, No diarrhea, No nausea, No vomiting Genitourinary: No dysuria, No hematuria Musculoskeletal: no symptoms reported Skin: No rash on exposed areas, No ulcerations on exposed areas Psychiatric/Neurological: No anxiety, No depression, No seizure, No focal weakness, No syncope Hematologic: No bleeding abnormalities ABS-Yvradf-Swoyhb Hx Patient Social History Smoking Status: Former Smoker 2nd Hand Smoke Exposure: No Immunizations Up To Date Tetanus Booster (TDap): Unknown Date of Pneumonia Vaccine: Jul 21, 2018 Date of Influenza Vaccine: Jun 20, 2020 Past Medical History PMH As described under Assessment. Family Medical History Family Medical History: He does not report any family h/o CAD. Family History: FH: emphysema 19 MOTHER FH: lung cancer 19 FATHER Allergies and Home Medications Allergies Uncoded Allergies: IV contrast (Allergy, Unknown, 03/11/20) Home Medications Alprazolam 1 Mg Tablet, 1 MG PO BID PRN for ANXIETY, (Reported) Apixaban 5 Mg Tablet, 5 MG PO BID, (Reported) Atorvastatin Calcium 40 Mg Tablet, 40 MG PO DAILY, (Reported) Flecainide Acetate 100 Mg Tablet, 100 MG PO DAILY PRN for AFIB SYMPTOMS, (Reported) IF AFTER 15-30 MINUTES SYMPTOMS COMTINUE TAKE 1 ADDITONAL TABLET Levothyroxine Sodium 75 Mcg Tablet, 75 MCG PO DAILY, (Reported) Multivitamins with Iron 1 Each Tablet, 1 EACH PO DAILY, (Reported) Oxycodone HCl 10 Mg Tablet, 10 MG PO Q6H PRN for PAIN-SEVERE (8-10), (Reported) Patient Home Medication List Home Medication List Reviewed: Yes Physical Exam-Cardiology Physical Exam Vital Signs/I&O 11/04/20 11/04/20 11/04/20 11/04/20 01:00 01:00 02:00 03:00 Pulse 92 92 92 92 Resp 18 19 19 B/P (MAP) 108/64 (79) 102/69 (80) 98/78 (85) Pulse Ox 94 93 94 O2 Delivery Room Air Room Air Room Air 11/04/20 11/04/20 11/04/20 11/04/20 04:00 04:45 05:00 06:00 Temp 36.8 Pulse 90 90 89 Resp 14 20 14 B/P (MAP) 113/65 (81) 107/76 (86) 114/70 (85) Pulse Ox 97 94 96 O2 Delivery Room Air 11/04/20 11/04/20 11/04/20 11/04/20 06:41 07:00 07:45 08:00 Temp 36.7 Pulse 90 89 90 Resp 18 15 B/P (MAP) 108/67 (81) 108/70 (83) Pulse Ox 93 94 O2 Delivery Room Air Room Air 11/04/20 11/04/20 11/04/20 11/04/20 08:46 09:00 10:00 11:00 Pulse 87 86 87 Resp 12 11 17 B/P (MAP) 120/77 (91) 117/68 (84) 123/73 (90) Pulse Ox 98 96 95 96 O2 Delivery Room Air Room Air Room Air Room Air 11/04/20 00:00 Intake Total 1750 ml Output Total 730 ml Balance 1020 ml Capillary Refill : Less Than 3 Seconds Constitutional: AAO x 3, well-developed, well-nourished HEENT: PERRL, hearing is well preserved, oral hygience is good Neck: No carotid bruit; carotid pulses are 2 + bilaterally Respiratory: No accessory muscle use, No respiratory distress; chest expansion is symmetric, chest is bilaterally symmetric Cardiovascular: regular rate-rhythm; No JVD; S1 and S2 Gastrointestinal: tender, soft, round; No guarding; audible bowel sounds Extremities: no lower extremity edema bilateral Neurologic/Psychiatric: grossly intact (moves all extremities) Skin: No rash on exposed areas, No ulcerations on exposed areas Data Review Labs Laboratory Tests 11/03/20 12:50: Prothrombin Time 14.9H, INR Comment 1.1 11/03/20 23:43: Glucometer 107 11/04/20 04:05: Prothrombin Time 14.5, INR Comment 1.1, White Blood Count 11.2H, Red Blood Count 3.24L, Hemoglobin 8.3L, Hematocrit 26L, Mean Corpuscular Volume 82, Mean Corpuscular Hemoglobin 26, Mean Corpuscular Hemoglobin Concent 31L, Red Cell Distribution Width 21.7H, Platelet Count 258, Mean Platelet Volume 10.8, Immature Granulocyte % (Auto) 0, Neutrophils (%) (Auto) 67, Lymphocytes (%) (A uto) 13, Monocytes (%) (Auto) 15H, Eosinophils (%) (Auto) 3, Basophils (%) (Auto) 1, Neutrophils # (Auto) 7.5, Lymphocytes # (Auto) 1.5, Monocytes # (Auto) 1.7H, Eosinophils # (Auto) 0.4H, Basophils # (Auto) 0.1, Immature Granulocyte # (Auto) 0.0, Sodium Level 139, Potassium Level 4.3, Chloride Level 112H, Carbon Dioxide Level 20L, Anion Gap 7, Blood Urea Nitrogen 20H, Creatinine 1.16, Estimat Glomerular Filtration Rate > 60, BUN/Creatinine Ratio 17, Glucose Level 180H, Calcium Level 7.7L, Corrected Calcium 8.4L, Phosphorus Level 2.1L, Magnesium Level 1.9, Total Bilirubin 0.7, Aspartate Amino Transf (AST/SGOT) 16, Alanine Aminotransferase (ALT/SGPT) 12, Alkaline Phosphatase 87, Total Protein 5.4L, Albumin 3.1L, Triglycerides Level 84 11/04/20 10:15: Lactic Acid Level 1.27 11/04/20 11:30: Glucometer 141H Microbiology 11/02/20 MRSA Screen - Final, Complete MRSA not isolated A/P-Cardiology Assessment/Admission Diagnosis PAF, s/p ablation by Dr Rodriguez at [facility] in 2018 or 2019; pt reports to have had recurrence in February 2020 OAC with Eliquis Mild CAD consisting of mild to mod dz of the LAD that has been unchanged on card caths of 2014, 2017, and 2018 Echo of 03/31/20: LVEF 55-65%, mod MR, PASP 35-40 mmHg H/O PE and DVT in the past per report Hep C + H/O left sided colon resection H/O splenectomy Suspected perforation of the left posterior rectum approximately 9.2 cm from the anal verge. per CT of the abdomen on 11-03-20 - management per Dr. Lou Discussion and Recomendations H/O PAF with ablation tx in the past per Dr. Rodriguez - currently SR on tele Rectal bleed with likely extraperitoneal rectal tear - management per Dr. Lou OAC with Eliquis currently being held d/t bleed as noted above Currently NPO receiving TPN Monitor lab closely Further recs will be based on hospitalization We would like to thank Surg and Medical services for this consult KAYLAN FULTON MD FACP FAC [facility] Nov 04, 2020 12:11
--- NOTE | 2020-11-04 16:56 | Progress Note ---
Subjective Date Seen by a Provider: Nov 04, 2020 Time Seen by a Provider: 16:00 Subjective/Events-last exam doing ok. still complains of lower abd pain. no fever/chills. no rectal bleed. Focused Exam Lactate Level 11/04/20 10:15: Lactic Acid Level 1.27 Objective Exam Vital Signs Date Time Temp Pulse Resp B/P (MAP) Pulse Ox O2 Delivery O2 Flow Rate FiO2 11/04/20 15:00 89 19 131/76 (94) 96 Room Air 11/04/20 14:00 86 11 119/81 (94) 96 Room Air 11/04/20 13:00 89 18 132/85 (101) 96 Room Air 11/04/20 12:36 87 11/04/20 12:00 88 16 122/76 (91) 95 Room Air 11/04/20 11:00 87 17 123/73 (90) 96 Room Air 11/04/20 10:00 86 11 117/68 (84) 95 Room Air 11/04/20 09:00 87 12 120/77 (91) 96 Room Air 11/04/20 08:46 98 Room Air 11/04/20 08:00 90 15 108/70 (83) 94 Room Air 11/04/20 07:45 36.7 11/04/20 07:00 89 18 108/67 (81) 93 Room Air 11/04/20 06:41 90 11/04/20 06:00 89 14 114/70 (85) 96 11/04/20 05:00 90 20 107/76 (86) 94 11/04/20 04:45 36.8 11/04/20 04:00 90 14 113/65 (81) 97 Room Air 11/04/20 03:00 92 19 98/78 (85) 94 Room Air 11/04/20 02:00 92 19 102/69 (80) 93 Room Air 11/04/20 01:00 92 11/04/20 01:00 92 18 108/64 (79) 94 Room Air 11/04/20 00:00 92 19 109/71 (84) 94 Room Air 11/03/20 23:41 36.6 11/03/20 23:00 94 18 89/62 (71) 94 Room Air 11/03/20 22:00 95 13 113/68 (83) 97 Room Air 11/03/20 21:00 96 Room Air 11/03/20 21:00 92 9 92/65 (74) 95 Room Air 11/03/20 20:18 37.4 93 18 90/59 (69) 96 Room Air 11/03/20 19:00 97 11/03/20 19:00 96 22 128/91 (103) 95 Room Air 11/03/20 18:05 37.2 11/03/20 18:00 93 13 120/72 (88) 96 Room Air 11/03/20 17:00 98 21 119/72 (88) 93 Room Air I & O 11/04/20 07:00 Intake Total 1850 ml Output Total 1430 ml Balance 420 ml Capillary Refill : Less Than 3 Seconds General Appearance: No Apparent Distress HEENT: PERRL/EOMI Neck: Full Range of Motion Respiratory: Chest Non Tender, Lungs Clear, Normal Breath Sounds Cardiovascular: Regular Rate, Rhythm Gastrointestinal: normal bowel sounds, soft Extremity: Normal Capillary Refill Neurologic/Psychiatric: Alert, Oriented x3 Skin: Normal Color Lymphatic: No Adenopathy Results Lab Laboratory Tests 11/03/20 23:43: Glucometer 107 11/04/20 04:05: White Blood Count 11.2H, Red Blood Count 3.24L, Hemoglobin 8.3L, Hematocrit 26L, Mean Corpuscular Volume 82, Mean Corpuscular Hemoglobin 26, Mean Corpuscular Hemoglobin Concent 31L, Red Cell Distribution Width 21.7H, Platelet Count 258, Mean Platelet Volume 10.8, Immature Granulocyte % (Auto) 0, Neutrophils (%) (Auto) 67, Lymphocytes (%) (Auto) 13, Monocytes (%) (Auto) 15H, Eosinophils (%) (Auto) 3, Basophils (%) (Auto) 1, Neutrophils # (Auto) 7.5, Lymphocytes # (Auto) 1.5, Monocytes # (Auto) 1.7H, Eosinophils # (Auto) 0.4H, Basophils # (Auto) 0.1, Immature Granulocyte # (Auto) 0.0, Prothrombin Time 14.5, INR Comment 1.1, Sodium Level 139, Potassium Level 4.3, Chloride Level 112H, Carbon Dioxide Level 20L, Anion Gap 7, Blood Urea Nitrogen 20H, Creatinine 1.16, Estimat Glomerular Filtration Rate > 60, BUN/Creatinine Ratio 17, Glucose Level 180H, Calcium Level 7.7L, Corrected Calcium 8.4L, Phosphorus Level 2.1L, Magnesium Level 1.9, Total Bilirubin 0.7, Aspartate Amino Transf (AST/SGOT) 16, Alanine Aminotransferase (ALT/SGPT) 12, Alkaline Phosphatase 87, Total Protein 5.4L, Albumin 3.1L, Triglycerides Level 84 11/04/20 10:15: Lactic Acid Level 1.27 11/04/20 11:30: Glucometer 141H 11/04/20 12:33: Lab Scanned Report Transfusion Reaction Form Microbiology 11/02/20 MRSA Screen - Final, Complete MRSA not isolated Assessment/Plan Assessment/Plan Assess & Plan/Chief Complaint rectal tear and bleeding secondary to trauma. bowel rest. TPN abx. ambulate. gastrograffin enema likely wednesday. IMMANUEL FRANCO MD Nov 04, 2020 16:56
[2020-11-04] MEDS ORDERED: SODIUM ACETATE IV SCH ×9 (17:00)
[2020-11-04] MEDS ORDERED: [UNRECOGNIZED DRUG - OTHER] IV SCH ×9 (17:00)
[2020-11-04] MEDS ORDERED: SODIUM PHOSPHATE IV SCH ×9 (17:00)
[2020-11-04] MEDS ORDERED: POTASSIUM CHLORIDE IV SCH ×9 (17:00)
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
[2020-11-04] MEDS: ONDANSETRON 4 MG/2 ML (SDV) Z0FRAN IVP PRN (19:01)
[2020-11-04] MEDS: 1/2 NS IV SOLUTION 1,000 ML IV SCH ×2 (20:02→23:38)
[2020-11-04 20:07] VITALS: BP 123/74
[2020-11-04] MEDS: oxyCODONE/APAP 10/325MG (PERCOCET 10) TABLET PO PRN (22:28)
[2020-11-05] VITALS (9 sets, daily range): BP systolic 101–150; BP diastolic 60–91
[2020-11-05] MEDS: ONDANSETRON 4 MG/2 ML (SDV) Z0FRAN IVP PRN ×5 (00:37→21:00)
[2020-11-05] MEDS: PIPERACILLIN/TAZO 4.5 GM/NS 100 ML IV SCH ×6 (05:13→22:04)
[2020-11-05 05:22] LABS: BASOPHILS # (AUTO) 0.1 10^3/uL (0.0-0.1); BASOPHILS % (AUTO) 0 % (0-10); EOSINOPHILS # (AUTO) 0.4 10^3/uL (0.0-0.3); EOSINOPHILS % (AUTO) 3 % (0-10); HEMATOCRIT 24 % (40-54); HEMOGLOBIN 7.8 g/dL (13.3-17.7); LYMPHOCYTES # (AUTO) 1.4 10^3/uL (1.0-4.0); LYMPHOCYTES % (AUTO) 11 % (12-44); MEAN CORPUSCULAR HEMOGLOBIN 26 pg (25-34); MEAN CORPUSCULAR HGB CONC 32 g/dL (32-36); MEAN CORPUSCULAR VOLUME 80 fL (80-99); MEAN PLATELET VOLUME 10.5 fL (9.0-12.2); MONOCYTES # (AUTO) 1.8 10^3/uL (0.0-1.0); MONOCYTES % (AUTO) 14 % (0-12); NEUTROPHILS # (AUTO) 9.3 10^3/uL (1.8-7.8); NEUTROPHILS % (AUTO) 71 % (42-75); PLATELET COUNT 251 10^3/uL (130-400); WHITE BLOOD COUNT 13.1 10^3/uL (4.3-11.0)
[2020-11-05 05:39] LABS: CHLORIDE 111 MMOL/L (98-107); POTASSIUM 4.2 MMOL/L (3.6-5.0); SODIUM 140 MMOL/L (135-145)
[2020-11-05 05:40] LABS: CALCIUM 7.8 MG/DL (8.5-10.1)
[2020-11-05 05:41] LABS: GLUCOSE 109 MG/DL (70-105)
[2020-11-05 05:42] LABS: CARBON DIOXIDE 21 MMOL/L (21-32)
[2020-11-05 05:45] LABS: CREATININE SERUM 1.03 MG/DL (0.60-1.30); GFR ESTIMATED > 60
[2020-11-05 05:46] LABS: BUN/CREATININE RATIO 25
[2020-11-05] MEDS: PANTOPRAZOLE 40 MG (PROTONIX) VIAL IV SCH (08:17)
[2020-11-05] MEDS: oxyCODONE/APAP 10/325MG (PERCOCET 10) TABLET PO PRN ×2 (08:18→13:35)
--- NOTE | 2020-11-05 10:10 | Progress Note - Cardiology ---
Cardiology SOAP Progress Note Subjective: Sitting up in recliner at the bedside States he feels dizzy this morning C/O abd pain No c/o CP or palpitations Objective: I&O/Vital Signs 11/06/20 11/06/20 11/06/20 11/06/20 00:00 01:00 04:40 06:53 Temp 37.0 36.5 Pulse 94 87 82 84 Resp 20 18 B/P (MAP) 115/58 (77) 113/72 (86) Pulse Ox 95 96 O2 Delivery Room Air Room Air 11/06/20 08:37 Temp 36.9 Pulse 83 Resp 18 B/P (MAP) 115/69 (84) Pulse Ox 96 O2 Delivery Room Air 11/06/20 00:00 Intake Total 460 ml Output Total 250 ml Balance 210 ml Weight (Pounds): 224 Weight (Ounces): 0 Weight (Calculated Kilograms): 101.992895 Constitutional: AAO x 3, well-developed, well-nourished Respiratory: No accessory muscle use, No respiratory distress; chest expansion is symmetric, chest is bilaterally symmetric Cardiovascular: regular rate-rhythm; No JVD; S1 and S2 Gastrointestional: tender, soft, round; No guarding; audible bowel sounds Extremities: no lower extremity edema bilateral Neurologic/Psychiatric: grossly intact (moves all extremities) Skin: No rash on exposed areas, No ulcerations on exposed areas Results/Procedures: Labs Laboratory Tests 11/05/20 11:06: Glucometer 116H 11/05/20 18:07: Glucometer 123H 11/06/20 00:11: Glucometer 109 11/06/20 06:01: White Blood Count 11.2H, Red Blood Count 3.43L, Hemoglobin 8.9L, Hematocrit 28L, Mean Corpuscular Volume 80, Mean Corpuscular Hemoglobin 26, Mean Corpuscular Hemoglobin Concent 32, Red Cell Distribution Width 21.2H, Platelet Count 281, Mean Platelet Volume 10.5, Immature Granulocyte % (Auto) 0, Neutrophils (%) (Auto) 68, Lymphocytes (%) (Auto) 12, Monocytes (%) (Auto) 14H, Eosinophils (%) (Auto) 5, Basophils (%) (Auto) 1, Neutrophils # (Auto) 7.6, Lymphocytes # (Auto) 1.4, Monocytes # (Auto) 1.5H, Eosinophils # (Auto) 0.6H, Basophils # (Auto) 0.1, Immature Granulocyte # (Auto) 0.0, Sodium Level 141, Potassium Level 3.9, Chloride Level 111H, Carbon Dioxide Level 22, Anion Gap 8, Blood Urea Nitrogen 28H, Creatinine 1.05, Estimat Glomerular Filtration Rate > 60, BUN/Creatinine Ratio 27, Glucose Level 115H, Calcium Level 8.0L, Phosphorus Level 2.8, Magnesium Level 2.9H 11/06/20 06:07: Glucometer 112H Microbiology 11/02/20 MRSA Screen - Final, Complete MRSA not isolated A/P: Assessment: PAF, s/p ablation by Dr Rodriguez at [facility] in 2018 or 2019; pt reports to have had recurrence in February 2020 OAC with Eliquis Mild CAD consisting of mild to mod dz of the LAD that has been unchanged on card caths of 2014, 2017, and 2018 Echo of 03/31/20: LVEF 55-65%, mod MR, PASP 35-40 mmHg H/O PE and DVT in the past per report Hep C + H/O left sided colon resection H/O splenectomy Suspected perforation of the left posterior rectum approximately 9.2 cm from the anal verge. per CT of the abdomen on 11-03-20 - management per Dr. Lou Plan: H/O PAF with ablation tx in the past per Dr. Rodriguez - currently SR on tele Rectal bleed with likely extraperitoneal rectal tear - management per Dr. Lou OAC with Eliquis currently being held d/t bleed as noted above Currently NPO receiving TPN Monitor lab closely Anemia - management per medical/surgical services - advise transfusion, spoke with Dr. Alonso this morning Increasing abd pain - Dr. Lou managing GEOVANNA LOCKE Nov 05, 2020 10:10
[2020-11-05] MEDS ORDERED: IOHEXOL 350 MG/ML 100 ML (OMNIPAQUE 350) VIAL IV ONE (11:00)
[2020-11-05] MEDS ORDERED: NS 100 ML (IVPB) BAG IV ONE (11:00)
[2020-11-05] MEDS ORDERED: NS IV 500 ML 500 ML IV SCH ×2 (11:00)
[2020-11-05] MEDS ORDERED: CATHETER FLUSH 10 ML SYR IV PRN (11:00)
[2020-11-05] MEDS ORDERED: HOLD METFORMIN - RECEIVED CONTRAST 20 ML VIAL IV SCH (11:00)
--- NOTE | 2020-11-05 11:52 | Diagnostic Imaging Report ---
EXAMINATION: CT Abdomen/Pelvis without contrast. TECHNIQUE: Multiple contiguous axial images were obtained through the abdomen and pelvis without the use of intravenous contrast. All CT scans use one or more of the following dose optimizing techniques: automated exposure control, MA and/or KvP adjustment based on a patient size and exam type, or iterative reconstruction. HISTORY: Worsening abdominal pain. COMPARISON: 11/02/2020. FINDINGS: Lung bases: Small bilateral pleural effusions with left basilar atelectasis or scarring. Solid organs: The liver is normal. The gallbladder is normal. There is no biliary ductal dilation. Pancreas is normal. The spleen is surgically absent. There are multiple splenules within the left upper quadrant. Adrenal glands are normal. Multiple nonobstructing left renal calculi measuring up to 0.2 cm. No hydronephrosis. Bowel: The stomach and small bowel are normal without obstruction. Stable hyperdensity along the left posterior rectum compared to 11/02/2020. Stable hyperdense material along the presacral space. Scattered colonic diverticulosis. No findings of acute appendicitis. Peritoneum: There is no intraperitoneal free fluid or free air. Stable mesenteric edema. No suspicious lymphadenopathy. Vasculature: Calcification of the aorta without aneurysm. Musculoskeletal: Degenerative changes of the spine without suspicious osseous lesion or compression fracture. Pelvis: The prostate gland is normal. The urinary bladder is normal. IMPRESSION: 1. Stable hyperdensity along the left posterior rectum extending into the presacral space remains concerning for hemorrhage. Differential consideration could include a focal rectal mass. Recommend correlation with colonoscopy. 2. Stable nonobstructing left renal calculi without hydronephrosis. 3. Colonic diverticulosis. Dictated by: Dictated on workstation # [id number]
[2020-11-05] MEDS: HYDROmorphone 2 MG/ML VIAL (DILAUDID) IV PRN (13:48)
--- NOTE | 2020-11-05 13:57 | Progress Note ---
Subjective Date Seen by a Provider: Nov 05, 2020 Time Seen by a Provider: 13:00 Subjective/Events-last exam increased lower abd pain. also developed nausea with clears. CT stable from last. no bowel fxn. Focused Exam Lactate Level 11/04/20 10:15: Lactic Acid Level 1.27 Objective Exam Vital Signs Date Time Temp Pulse Resp B/P (MAP) Pulse Ox O2 Delivery O2 Flow Rate FiO2 11/05/20 12:44 85 11/05/20 12:12 36.5 87 145/88 11/05/20 11:55 36.5 88 150/90 11/05/20 11:32 36.6 84 20 131/86 (101) 98 Room Air 11/05/20 09:00 99 Room Air 11/05/20 08:00 36.6 87 20 110/71 (84) 99 Room Air 11/05/20 07:00 84 11/05/20 04:00 37.0 83 20 101/60 (74) 99 Room Air 11/05/20 01:00 82 11/05/20 00:00 36.7 80 20 101/61 (74) 96 Room Air 11/04/20 20:41 Room Air 11/04/20 20:07 37.0 104 22 123/74 (90) 98 Room Air 11/04/20 19:00 107 11/04/20 17:00 94 23 134/85 (101) 97 Room Air 11/04/20 16:00 89 30 133/81 (98) 96 Room Air 11/04/20 15:00 89 19 131/76 (94) 96 Room Air 11/04/20 14:00 86 11 119/81 (94) 96 Room Air I & O 11/05/20 07:00 Intake Total 2650 ml Output Total 951 ml Balance 1699 ml Capillary Refill : Less Than 3 Seconds General Appearance: No Apparent Distress HEENT: PERRL/EOMI Neck: Full Range of Motion Respiratory: Chest Non Tender, Lungs Clear, Normal Breath Sounds Cardiovascular: Regular Rate, Rhythm Gastrointestinal: soft, tenderness Extremity: Normal Capillary Refill Neurologic/Psychiatric: Alert, Oriented x3 Skin: Normal Color Lymphatic: No Adenopathy Results Lab Laboratory Tests 11/05/20 00:29: Glucometer 126H 11/05/20 05:15: White Blood Count 13.1H, Red Blood Count 3.03L, Hemoglobin 7.8L, Hematocrit 24L, Mean Corpuscular Volume 80, Mean Corpuscular Hemoglobin 26, Mean Corpuscular Hemoglobin Concent 32, Red Cell Distribution Width 21.4H, Platelet Count 251, Mean Platelet Volume 10.5, Immature Granulocyte % (Auto) 0, Neutrophils (%) (Auto) 71, Lymphocytes (%) (Auto) 11L, Monocytes (%) (Auto) 14H, Eosinophils (%) (Auto) 3, Basophils (%) (Auto) 0, Neutrophils # (Auto) 9.3H, Lymphocytes # (Auto) 1.4, Monocytes # (Auto) 1.8H, Eosinophils # (Auto) 0.4H, Basophils # (Auto) 0.1, Immature Granulocyte # (Auto) 0.1, Sodium Level 140, Potassium Level 4.2, Chloride Level 111H, Carbon Dioxide Level 21, Anion Gap 8, Blood Urea Nitrogen 26H, Creatinine 1.03, Estimat Glomerular Filtration Rate > 60, BUN/Creatinine Ratio 25, Glucose Level 109H, Calcium Level 7.8L, Phosphorus Level 3.0, Magnesium Level 2.0 11/05/20 11:06: Glucometer 116H Microbiology 11/02/20 MRSA Screen - Final, Complete MRSA not isolated Assessment/Plan Assessment/Plan Assess & Plan/Chief Complaint rectal tear and bleeding secondary to trauma. bowel rest. TPN abx. add flagyl ambulate and IS to prevent atelectasis repeat CT scan stable. will continue with NPO and bowel rest until return of bowel fxn. . IMMANUEL FRANCO MD Nov 05, 2020 13:57
--- NOTE | 2020-11-05 15:09 | Progress Note - Cardiology ---
Cardiology SOAP Progress Note Subjective: No cp or palp or syncope Gen weakness and malaise No n/v No focal weakness No shortness of breath at rest Objective: I&O/Vital Signs 11/05/20 11/05/20 11/05/20 11/05/20 04:00 07:00 08:00 09:00 Temp 37.0 36.6 Pulse 83 84 87 Resp 20 20 B/P (MAP) 101/60 (74) 110/71 (84) Pulse Ox 99 99 99 O2 Delivery Room Air Room Air Room Air 11/05/20 11/05/20 11/05/20 11/05/20 11:32 11:55 12:12 12:44 Temp 36.6 36.5 36.5 Pulse 84 88 87 85 Resp 20 B/P (MAP) 131/86 (101) 150/90 145/88 Pulse Ox 98 O2 Delivery Room Air 11/05/20 00:00 Intake Total 2500 ml Output Total 251 ml Balance 2249 ml Weight (Pounds): 224 Weight (Ounces): 0 Weight (Calculated Kilograms): 101.365198 Constitutional: AAO x 3, well-developed, well-nourished Respiratory: No accessory muscle use, No respiratory distress; chest expansion is symmetric, chest is bilaterally symmetric Cardiovascular: regular rate-rhythm; No JVD; S1 and S2 Gastrointestional: tender, soft, round; No guarding; audible bowel sounds Extremities: no lower extremity edema bilateral Neurologic/Psychiatric: grossly intact (moves all extremities) Skin: No rash on exposed areas, No ulcerations on exposed areas Results/Procedures: Labs Laboratory Tests 11/05/20 00:29: Glucometer 126H 11/05/20 05:15: White Blood Count 13.1H, Red Blood Count 3.03L, Hemoglobin 7.8L, Hematocrit 24L, Mean Corpuscular Volume 80, Mean Corpuscular Hemoglobin 26, Mean Corpuscular Hemoglobin Concent 32, Red Cell Distribution Width 21.4H, Platelet Count 251, Mean Platelet Volume 10.5, Immature Granulocyte % (Auto) 0, Neutrophils (%) (Auto) 71, Lymphocytes (%) (Auto) 11L, Monocytes (%) (Auto) 14H, Eosinophils (%) (Auto) 3, Basophils (%) (Auto) 0, Neutrophils # (Auto) 9.3H, Lymphocytes # (Auto) 1.4, Monocytes # (Auto) 1.8H, Eosinophils # (Auto) 0.4H, Basophils # (Auto) 0.1, Immature Granulocyte # (Auto) 0.1, Sodium Level 140, Potassium Level 4.2, Chloride Level 111H, Carbon Dioxide Level 21, Anion Gap 8, Blood Urea Nitrogen 26H, Creatinine 1.03, Estimat Glomerular Filtration Rate > 60, BUN/Creatinine Ratio 25, Glucose Level 109H, Calcium Level 7.8L, Phosphorus Level 3.0, Magnesium Level 2.0 11/05/20 11:06: Glucometer 116H Microbiology 11/02/20 MRSA Screen - Final, Complete MRSA not isolated Laboratory Tests 11/04/20 04:05 11/05/20 05:15 A/P: Assessment: PAF, s/p ablation by Dr Rodriguez at [facility] in 2018 or 2019; pt reports to have had recurrence in February 2020 OAC with Eliquis Mild CAD consisting of mild to mod dz of the LAD that has been unchanged on card caths of 2014, 2017, and 2018 Echo of 03/31/20: LVEF 55-65%, mod MR, PASP 35-40 mmHg H/O PE and DVT in the past per report Hep C + H/O left sided colon resection H/O splenectomy Suspected perforation of the left posterior rectum approximately 9.2 cm from the anal verge. per CT of the abdomen on 11-03-20 - management per Dr. Lou Plan: Monitor heart rhythm OAC with Eliquis currently being held d/t bleed as noted above. Currently getting blood transfusion Currently NPO receiving TPN Monitor lab closely KAYLAN FULTON MD FACP [facility] Nov 05, 2020 15:09
[2020-11-05] MEDS: LORazepam INJ 2 MG/ML (ATIVAN) VIAL IVP PRN (16:28)
[2020-11-05] MEDS ORDERED: POTASSIUM CHLORIDE IV SCH ×10 (17:00)
[2020-11-05] MEDS ORDERED: SODIUM ACETATE IV SCH ×10 (17:00)
[2020-11-05] MEDS ORDERED: [UNRECOGNIZED DRUG - OTHER] IV SCH ×10 (17:00)
[2020-11-05] MEDS ORDERED: SODIUM PHOSPHATE IV SCH ×10 (17:00)
--- NOTE | 2020-11-05 17:39 | Progress Note ---
Subjective Subjective/Events-last exam Patient having increased pain this AM. States that he is having more nausea and has been vomiting up phlegm. NPO. Review of Systems General: Malaise Pulmonary: No Dyspnea, No Cough Cardiovascular: No: Chest Pain, Palpitations Gastrointestinal: Nausea, Vomiting, Abdominal Pain Neurological: No: Weakness, Incoordination Focused Exam Lactate Level 11/04/20 10:15: Lactic Acid Level 1.27 Objective Exam Last Set of Vital Signs Vital Signs Date Time Temp Pulse Resp B/P (MAP) Pulse Ox O2 Delivery O2 Flow Rate FiO2 11/05/20 16:08 36.4 81 19 137/91 (106) 96 Room Air Capillary Refill : Less Than 3 Seconds I&O Intake and Output 11/05/20 00:00 Intake Total 2500 ml Output Total 1126 ml Balance 1374 ml Intake Oral 250 ml IV Total 2250 ml Output Urine Total 1126 ml # Bowel Movements 1 General: Alert, Oriented X3, Mild Distress Lungs: Clear to Auscultation, Normal Air Movement Heart: Regular Rate, No Murmurs Abdomen: Other (diffuse abdominal pain with palpation, rebound ttp, normal bowel sounds) Results/Procedures Lab Laboratory Tests 11/05/20 00:29: Glucometer 126H 11/05/20 05:15: White Blood Count 13.1H, Red Blood Count 3.03L, Hemoglobin 7.8L, Hematocrit 24L, Mean Corpuscular Volume 80, Mean Corpuscular Hemoglobin 26, Mean Corpuscular He moglobin Concent 32, Red Cell Distribution Width 21.4H, Platelet Count 251, Mean Platelet Volume 10.5, Immature Granulocyte % (Auto) 0, Neutrophils (%) (Auto) 71, Lymphocytes (%) (Auto) 11L, Monocytes (%) (Auto) 14H, Eosinophils (%) (Auto) 3, Basophils (%) (Auto) 0, Neutrophils # (Auto) 9.3H, Lymphocytes # (Auto) 1.4, Monocytes # (Auto) 1.8H, Eosinophils # (Auto) 0.4H, Basophils # (Auto) 0.1, Immature Granulocyte # (Auto) 0.1, Sodium Level 140, Potassium Level 4.2, Chloride Level 111H, Carbon Dioxide Level 21, Anion Gap 8, Blood Urea Nitrogen 26H, Creatinine 1.03, Estimat Glomerular Filtration Rate > 60, BUN/Creatinine Ratio 25, Glucose Level 109H, Calcium Level 7.8L, Phosphorus Level 3.0, Magnesium Level 2.0 11/05/20 11:06: Glucometer 116H Microbiology 11/02/20 MRSA Screen - Final, Complete MRSA not isolated Radiology NAME: JUAN CARLOS GAFFNEY [facility] REC#: [id number] PT STATUS: ADM IN : 1960 PHYSICIAN: IMMANUEL FRANCO MD ADMIT DATE: 11/02/20/ICU Draft Date of Exam:11/04/20 CHEST 1 VIEW, AP/PA ONLY EXAM: CHEST 1 VIEW, AP/PA ONLY INDICATION: Acute blood loss. Anemia. COMPARISON: Chest radiograph 11/03/2020. FINDINGS: Normal heart size and central pulmonary vascularity. Left PICC tip mid SVC. Mild atelectasis or infiltrate and left lung base is stable. No large pleural effusion or pneumothorax. Surgical clips LUQ. IMPRESSION: 1. Stable mild atelectasis or infiltrate left lung base. 2. Left PICC tip mid SVC. Dictated on workstation # [id number] Dict: 11/04/20 0737 Trans: 11/04/20 0739 CV [id number] Interpreted by: AMANDEEP YEE MD Electronically signed by: Assessment/Plan Assessment/Plan (1) Acute lower GI hemorrhage Status: Acute Assessment & Plan: 11/04: Consulted by General Surgery, patient on strict bowel rest, NPO 11/05: Increased pain, Repeat CT scan today, order 1 unit pRBCs due to increased dizziness and fatigue (2) Acute blood loss anemia Status: Acute Assessment & Plan: 11/04: Will get iron studies (3) Atrial fibrillation Status: Chronic Assessment & Plan: 11/04: Cardiology consulted, patient previously on OAC currently on hold Qualifiers: Qualified Codes: I48.0 - Paroxysmal atrial fibrillation (4) Rectal perforation Status: Acute Assessment & Plan: 11/04: Bowel rest (5) Hypertension Status: Chronic Assessment & Plan: 11/04: Continue home meds, continue to monitor, hold if bleeding increases Qualifiers: Qualified Codes: I10 - Essential (primary) hypertension (6) Hepatitis C Status: Resolved Assessment & Plan: - s/p treated in (7) Hyperlipidemia Status: Chronic Qualifiers: Qualified Codes: E78.2 - Mixed hyperlipidemia (8) H/O splenectomy (9) History of colon resection (10) DVT prophylaxis Assessment & Plan: - SCDs given GI bleeding NIC ANGULO MD Nov 05, 2020 17:39
[2020-11-05] MEDS ORDERED: BENZONATATE 100 MG (TESSALON) CAPSULE PO ONE (20:46)
[2020-11-05] MEDS: metroNIDAZOLE 500MG/100ML IVPB 100 ML IV SCH (20:51)
[2020-11-05] MEDS: BENZONATATE 100 MG (TESSALON) CAPSULE PO SCH (20:51)
[2020-11-05] MEDS: 1/2 NS IV SOLUTION 1,000 ML IV SCH (22:03)
[2020-11-06] VITALS: BP 115/58
[2020-11-06] MEDS: LORazepam INJ 2 MG/ML (ATIVAN) VIAL IVP PRN ×2 (01:05→20:08)
[2020-11-06 04:40] VITALS: BP 113/72
[2020-11-06] MEDS: HYDROmorphone 2 MG/ML VIAL (DILAUDID) IV PRN (06:02)
[2020-11-06] MEDS: BENZONATATE 100 MG (TESSALON) CAPSULE PO SCH ×3 (06:02→18:23)
[2020-11-06] MEDS: PIPERACILLIN/TAZO 4.5 GM/NS 100 ML IV SCH ×6 (06:03→21:22)
[2020-11-06 06:14] LABS: BASOPHILS # (AUTO) 0.1 10^3/uL (0.0-0.1); BASOPHILS % (AUTO) 1 % (0-10); EOSINOPHILS # (AUTO) 0.6 10^3/uL (0.0-0.3); EOSINOPHILS % (AUTO) 5 % (0-10); HEMATOCRIT 28 % (40-54); HEMOGLOBIN 8.9 g/dL (13.3-17.7); LYMPHOCYTES # (AUTO) 1.4 10^3/uL (1.0-4.0); LYMPHOCYTES % (AUTO) 12 % (12-44); MEAN CORPUSCULAR HEMOGLOBIN 26 pg (25-34); MEAN CORPUSCULAR HGB CONC 32 g/dL (32-36); MEAN CORPUSCULAR VOLUME 80 fL (80-99); MEAN PLATELET VOLUME 10.5 fL (9.0-12.2); MONOCYTES # (AUTO) 1.5 10^3/uL (0.0-1.0); MONOCYTES % (AUTO) 14 % (0-12); NEUTROPHILS # (AUTO) 7.6 10^3/uL (1.8-7.8); NEUTROPHILS % (AUTO) 68 % (42-75); PLATELET COUNT 281 10^3/uL (130-400); WHITE BLOOD COUNT 11.2 10^3/uL (4.3-11.0)
[2020-11-06 06:25] LABS: CHLORIDE 111 MMOL/L (98-107); POTASSIUM 3.9 MMOL/L (3.6-5.0); SODIUM 141 MMOL/L (135-145)
[2020-11-06 06:26] LABS: GLUCOSE 115 MG/DL (70-105)
[2020-11-06 06:28] LABS: CARBON DIOXIDE 22 MMOL/L (21-32)
[2020-11-06 06:30] LABS: CREATININE SERUM 1.05 MG/DL (0.60-1.30); GFR ESTIMATED > 60
[2020-11-06 06:31] LABS: BUN/CREATININE RATIO 27
[2020-11-06] MEDS: PANTOPRAZOLE 40 MG (PROTONIX) VIAL IV SCH (08:04)
[2020-11-06] MEDS: metroNIDAZOLE 500MG/100ML IVPB 100 ML IV SCH ×2 (08:04→20:09)
[2020-11-06 08:37] VITALS: BP 115/69
[2020-11-06 08:56] LABS: MAGNESIUM 2.9 MG/DL (1.6-2.4); PHOSPHORUS 2.8 MG/DL (2.3-4.7)
--- NOTE | 2020-11-06 09:43 | Progress Note - Cardiology ---
Cardiology SOAP Progress Note Subjective: Sitting up in bed C/O abdominal pain No c/o CP or SOB Objective: I&O/Vital Signs 11/06/20 11/06/20 11/06/20 11/06/20 04:40 06:53 08:37 12:51 Temp 36.5 36.9 Pulse 82 84 83 84 Resp 18 18 B/P (MAP) 113/72 (86) 115/69 (84) Pulse Ox 96 96 O2 Delivery Room Air Room Air 11/06/20 00:00 Intake Total 460 ml Output Total 250 ml Balance 210 ml Weight (Pounds): 224 Weight (Ounces): 0 Weight (Calculated Kilograms): 101.706848 Constitutional: AAO x 3, well-developed, well-nourished Respiratory: No accessory muscle use, No respiratory distress; chest expansion is symmetric, chest is bilaterally symmetric Cardiovascular: regular rate-rhythm; No JVD; S1 and S2 Gastrointestional: tender, soft, round; No guarding; audible bowel sounds Extremities: no lower extremity edema bilateral Neurologic/Psychiatric: grossly intact (moves all extremities) Skin: No rash on exposed areas, No ulcerations on exposed areas Results/Procedures: Labs Laboratory Tests 11/05/20 18:07: Glucometer 123H 11/06/20 00:11: Glucometer 109 11/06/20 06:01: White Blood Count 11.2H, Red Blood Count 3.43L, Hemoglobin 8.9L, Hematocrit 28L, Mean Corpuscular Volume 80, Mean Corpuscular Hemoglobin 26, Mean Corpuscular Hemoglobin Concent 32, Red Cell Distribution Width 21.2H, Platelet Count 281, Mean Platelet Volume 10.5, Immature Granulocyte % (Auto) 0, Neutrophils (%) (Auto) 68, Lymphocytes (%) (Auto) 12, Monocytes (%) (Auto) 14H, Eosinophils (%) (Auto) 5, Basophils (%) (Auto) 1, Neutrophils # (Auto) 7.6, Lymphocytes # (Auto) 1.4, Monocytes # (Auto) 1.5H, Eosinophils # (Auto) 0.6H, Basophils # (Auto) 0.1, Immature Granulocyte # (Auto) 0.0, Sodium Level 141, Potassium Level 3.9, Chloride Level 111H, Carbon Dioxide Level 22, Anion Gap 8, Blood Urea Nitrogen 28H, Creatinine 1.05, Estimat Glomerular Filtration Rate > 60, BUN/Creatinine Ratio 27, Glucose Level 115H, Calcium Level 8.0L, Phosphorus Level 2.8, Magnesium Level 2.9H 11/06/20 06:07: Glucometer 112H Microbiology 11/02/20 MRSA Screen - Final, Complete MRSA not isolated Procedures NAME: JUAN CARLOS GAFFNEY [facility] REC#: [id number] PT STATUS: ADM IN : 1960 PHYSICIAN: IMMANUEL LOU MD ADMIT DATE: 11/02/20 Signed Date of Exam:11/05/20 CT ABDOMEN/PELVIS WO EXAMINATION: CT Abdomen/Pelvis without contrast. TECHNIQUE: Multiple contiguous axial images were obtained through the abdomen and pelvis without the use of intravenous contrast. All CT scans use one or more of the following dose optimizing techniques: automated exposure control, MA and/or KvP adjustment based on a patient size and exam type, or iterative reconstruction. HISTORY: Worsening abdominal pain. COMPARISON: 11/02/2020. FINDINGS: Lung bases: Small bilateral pleural effusions with left basilar atelectasis or scarring. Solid organs: The liver is normal. The gallbladder is normal. There is no biliary ductal dilation. Pancreas is normal. The spleen is surgically absent. There are multiple splenules within the left upper quadrant. Adrenal glands are normal. Multiple nonobstructing left renal calculi measuring up to 0.2 cm. No hydronephrosis. Bowel: The stomach and small bowel are normal without obstruction. Stable hyperdensity along the left posterior rectum compared to 11/02/2020. Stable hyperdense material along the presacral space. Scattered colonic diverticulosis. No findings of acute appendicitis. Peritoneum: There is no intraperitoneal free fluid or free air. Stable mesenteric edema. No suspicious lymphadenopathy. Vasculature: Calcification of the aorta without aneurysm. Musculoskeletal: Degenerative changes of the spine without suspicious osseous lesion or compression fracture. Pelvis: The prostate gland is normal. The urinary bladder is normal. IMPRESSION: 1. Stable hyperdensity along the left posterior rectum extending into the presacral space remains concerning for hemorrhage. Differential consideration could include a focal rectal mass. Recommend correlation with colonoscopy. 2. Stable nonobstructing left renal calculi without hydronephrosis. 3. Colonic diverticulosis. Dictated by: Dictated on workstation # [id number] Dict: 11/05/20 1143 Trans: 11/05/20 1228 [id number] Interpreted by: NANDINI RIVAS DO Electronically signed by: NANDINI RIVAS DO 11/05/20 1228 A/P: Assessment: PAF, s/p ablation by Dr Rodriguez at [facility] in 2018 or 2019; pt reports to have had recurrence in February 2020 OAC with Eliquis Mild CAD consisting of mild to mod dz of the LAD that has been unchanged on card caths of 2014, 2017, and 2018 Echo of 03/31/20: LVEF 55-65%, mod MR, PASP 35-40 mmHg H/O PE and DVT in the past per report Hep C + H/O left sided colon resection H/O splenectomy Suspected perforation of the left posterior rectum approximately 9.2 cm from the anal verge. per CT of the abdomen on 11-03-20 - management per Dr. Lou Plan: Monitor heart rhythm OAC with Eliquis currently being held d/t bleed as noted above H/H improved post transfusion Currently NPO receiving TPN Monitor lab closely GEOVANNA LOCKE Nov 06, 2020 09:43
[2020-11-06] MEDS: oxyCODONE/APAP 10/325MG (PERCOCET 10) TABLET PO PRN ×2 (12:02→18:24)
--- NOTE | 2020-11-06 12:13 | Progress Note ---
Subjective Date Seen by a Provider: Nov 06, 2020 Time Seen by a Provider: 11:00 Subjective/Events-last exam doing ok. pain better controlled. ambulating some. Focused Exam Lactate Level 11/04/20 10:15: Lactic Acid Level 1.27 Objective Exam Vital Signs Date Time Temp Pulse Resp B/P (MAP) Pulse Ox O2 Delivery O2 Flow Rate FiO2 11/06/20 08:37 36.9 83 18 115/69 (84) 96 Room Air 11/06/20 06:53 84 11/06/20 04:40 36.5 82 18 113/72 (86) 96 Room Air 11/06/20 01:00 87 11/06/20 00:00 37.0 94 20 115/58 (77) 95 Room Air 11/05/20 21:00 Room Air 11/05/20 20:35 37.1 80 20 120/88 (99) 95 Room Air 11/05/20 19:00 81 11/05/20 16:08 36.4 81 19 137/91 (106) 96 Room Air 11/05/20 14:55 36.0 86 126/82 11/05/20 12:44 85 11/05/20 12:12 36.5 87 145/88 I & O 11/06/20 07:00 Intake Total 630 ml Output Total 850 ml Balance -220 ml Capillary Refill : Less Than 3 Seconds General Appearance: No Apparent Distress HEENT: PERRL/EOMI Neck: Full Range of Motion Respiratory: Chest Non Tender Cardiovascular: Regular Rate, Rhythm Gastrointestinal: normal bowel sounds Extremity: Normal Capillary Refill Neurologic/Psychiatric: Alert Skin: Normal Color Lymphatic: No Adenopathy Results Lab Laboratory Tests 11/05/20 18:07: Glucometer 123H 11/06/20 00:11: Glucometer 109 11/06/20 06:01: White Blood Count 11.2H, Red Blood Count 3.43L, Hemoglobin 8.9L, Hematocrit 28L, Mean Corpuscular Volume 80, Mean Corpuscular Hemoglobin 26, Mean Corpuscular Hemoglobin Concent 32, Red Cell Distribution Width 21.2H, Platelet Count 281, Mean Platelet Volume 10.5, Immature Granulocyte % (Auto) 0, Neutrophils (%) (Auto) 68, Lymphocytes (%) (Auto) 12, Monocytes (%) (Auto) 14H, Eosinophils (%) (Auto) 5, Basophils (%) (Auto) 1, Neutrophils # (Auto) 7.6, Lymphocytes # (Auto) 1.4, Monocytes # (Auto) 1.5H, Eosinophils # (Auto) 0.6H, Basophils # (Auto) 0.1, Immature Granulocyte # (Auto) 0.0, Sodium Level 141, Potassium Level 3.9, Chloride Level 111H, Carbon Dioxide Level 22, Anion Gap 8, Blood Urea Nitrogen 28H, Creatinine 1.05, Estimat Glomerular Filtration Rate > 60, BUN/Creatinine Ratio 27, Glucose Level 115H, Calcium Level 8.0L, Phosphorus Level 2.8, Magnesium Level 2.9H 11/06/20 06:07: Glucometer 112H Microbiology 11/02/20 MRSA Screen - Final, Complete MRSA not isolated Assessment/Plan Assessment/Plan Assess & Plan/Chief Complaint rectal tear and bleeding secondary to trauma. bowel rest. TPN abx. add flagyl ambulate and IS to prevent atelectasis repeat CT scan stable. will continue with NPO and bowel rest until return of bowel fxn. . IMMANUEL FRANCO MD Nov 06, 2020 12:13
--- NOTE | 2020-11-06 13:44 | Progress Note - Cardiology ---
Cardiology SOAP Progress Note Subjective: Intermittent, post-prandial, epigastric burning No n/v No palp or syncope No shortness of breath Gen malaise present Objective: I&O/Vital Signs 11/06/20 11/06/20 11/06/20 11/06/20 04:40 06:53 08:37 12:51 Temp 36.5 36.9 Pulse 82 84 83 84 Resp 18 18 B/P (MAP) 113/72 (86) 115/69 (84) Pulse Ox 96 96 O2 Delivery Room Air Room Air 11/06/20 00:00 Intake Total 460 ml Output Total 250 ml Balance 210 ml Weight (Pounds): 224 Weight (Ounces): 0 Weight (Calculated Kilograms): 101.064009 Constitutional: AAO x 3, well-developed, well-nourished Respiratory: No accessory muscle use, No respiratory distress; chest expansion is symmetric, chest is bilaterally symmetric Cardiovascular: regular rate-rhythm; No JVD; S1 and S2 Gastrointestional: tender, soft, round; No guarding; audible bowel sounds Extremities: no lower extremity edema bilateral Neurologic/Psychiatric: grossly intact (moves all extremities) Skin: No rash on exposed areas, No ulcerations on exposed areas Results/Procedures: Labs Laboratory Tests 11/05/20 18:07: Glucometer 123H 11/06/20 00:11: Glucometer 109 11/06/20 06:01: White Blood Count 11.2H, Red Blood Count 3.43L, Hemoglobin 8.9L, Hematocrit 28L, Mean Corpuscular Volume 80, Mean Corpuscular Hemoglobin 26, Mean Corpuscular Hemoglobin Concent 32, Red Cell Distribution Width 21.2H, Platelet Count 281, Mean Platelet Volume 10.5, Immature Granulocyte % (Auto) 0, Neutrophils (%) (A uto) 68, Lymphocytes (%) (Auto) 12, Monocytes (%) (Auto) 14H, Eosinophils (%) ( Auto) 5, Basophils (%) (Auto) 1, Neutrophils # (Auto) 7.6, Lymphocytes # (Auto) 1.4, Monocytes # (Auto) 1.5H, Eosinophils # (Auto) 0.6H, Basophils # (Auto) 0.1, Immature Granulocyte # (Auto) 0.0, Sodium Level 141, Potassium Level 3.9, Chloride Level 111H, Carbon Dioxide Level 22, Anion Gap 8, Blood Urea Nitrogen 28H, Creatinine 1.05, Estimat Glomerular Filtration Rate > 60, BUN/Creatinine Ratio 27, Glucose Level 115H, Calcium Level 8.0L, Phosphorus Level 2.8, Magnesium Level 2.9H 11/06/20 06:07: Glucometer 112H Microbiology 11/02/20 MRSA Screen - Final, Complete MRSA not isolated Laboratory Tests 11/05/20 05:15 11/06/20 06:01 A/P: Assessment: PAF, s/p ablation by Dr Rodriguez at [facility] in 2018 or 2019; pt reports to have had recurrence in February 2020 OAC with Eliquis Mild CAD consisting of mild to mod dz of the LAD that has been unchanged on card caths of 2014, 2017, and 2018 Echo of 03/31/20: LVEF 55-65%, mod MR, PASP 35-40 mmHg H/O PE and DVT in the past per report Hep C + H/O left-sided colon resection H/O splenectomy Suspected perforation of the left posterior rectum approximately 9.2 cm from the anal verge. per CT of the abdomen on 11-03-20 - management per Dr. Lou Plan: Monitor heart rhythm OAC with Eliquis currently being held d/t bleed as noted above H/H improved post transfusion Currently NPO receiving TPN Some symptoms suggestive of GERD. Add PPI Monitor lab closely KAYLAN FULTON MD FACP [facility] Nov 06, 2020 13:44
[2020-11-06] MEDS: 1/2 NS IV SOLUTION 1,000 ML IV SCH (15:38)
[2020-11-06 16:20] VITALS: BP 120/74
[2020-11-06] MEDS ORDERED: [UNRECOGNIZED DRUG - OTHER] IV SCH ×10 (17:00)
[2020-11-06] MEDS ORDERED: POTASSIUM CHLORIDE IV SCH ×10 (17:00)
[2020-11-06] MEDS ORDERED: SODIUM ACETATE IV SCH ×10 (17:00)
--- NOTE | 2020-11-06 17:28 | Progress Note ---
Subjective Subjective/Events-last exam Patient feeling better this AM. Pain is better controlled. Denies any vomiting this AM. Tolerating ambulation. Reviewed CT results with patient. Review of Systems Pulmonary: No Dyspnea, No Cough Cardiovascular: No: Chest Pain, Palpitations Gastrointestinal: Abdominal Pain, Constipation; No: Nausea, Vomiting Focused Exam Lactate Level 11/04/20 10:15: Lactic Acid Level 1.27 Objective Exam Last Set of Vital Signs Vital Signs Date Time Temp Pulse Resp B/P (MAP) Pulse Ox O2 Delivery O2 Flow Rate FiO2 11/06/20 16:20 36.6 86 18 120/74 (89) 97 Room Air Capillary Refill : Less Than 3 Seconds I&O Intake and Output 11/06/20 00:00 Intake Total 730 ml Output Total 525 ml Balance 205 ml Intake Oral 300 ml IV Total 430 ml Output Urine Total 525 ml # Voids 3 General: Alert, Oriented X3, No Acute Distress Lungs: Clear to Auscultation, Normal Air Movement Heart: Regular Rate, No Murmurs Abdomen: Soft, Other (moderate ttp LLQ, no rebound or gaurding) Skin: No Rashes, No Breakdown Neuro: Normal Speech, Sensation Intact, Cranial Nerves 3-12 NL Results/Procedures Lab Laboratory Tests 11/05/20 18:07: Glucometer 123H 11/06/20 00:11: Glucometer 109 11/06/20 06:01: White Blood Count 11.2H, Red Blood Count 3.43L, Hemoglobin 8.9L, Hematocrit 28L, Mean Corpuscular Volume 80, Mean Corpuscular Hemoglobin 26, Mean Corpuscular Hemoglobin Concent 32, Red Cell Distribution Width 21.2H, Platelet Count 281, Mean Platelet Volume 10.5, Immature Granulocyte % (Auto) 0, Neutrophils (%) (Auto) 68, Lymphocytes (%) (Auto) 12, Monocytes (%) (Auto) 14H, Eosinophils (%) (Auto) 5, Basophils (%) (Auto) 1, Neutrophils # (Auto) 7.6, Lymphocytes # (Auto) 1.4, Monocytes # (Auto) 1.5H, Eosinophils # (Auto) 0.6H, Basophils # (Auto) 0.1, Immature Granulocyte # (Auto) 0.0, Sodium Level 141, Potassium Level 3.9, Chloride Level 111H, Carbon Dioxide Level 22, Anion Gap 8, Blood Urea Nitrogen 28H, Creatinine 1.05, Estimat Glomerular Filtration Rate > 60, BUN/Creatinine Ratio 27, Glucose Level 115H, Calcium Level 8.0L, Phosphorus Level 2.8, Magnesium Level 2.9H 11/06/20 06:07: Glucometer 112H Microbiology 11/02/20 MRSA Screen - Final, Complete MRSA not isolated Radiology NAME: JUAN CARLOS GAFFNEY [facility] REC#: [id number] PT STATUS: ADM IN : 1960 PHYSICIAN: IMMANUEL FRANCO MD ADMIT DATE: 11/02/20/ICU Draft Date of Exam:11/04/20 CHEST 1 VIEW, AP/PA ONLY EXAM: CHEST 1 VIEW, AP/PA ONLY INDICATION: Acute blood loss. Anemia. COMPARISON: Chest radiograph 11/03/2020. FINDINGS: Normal heart size and central pulmonary vascularity. Left PICC tip mid SVC. Mild atelectasis or infiltrate and left lung base is stable. No large pleural effusion or pneumothorax. Surgical clips LUQ. IMPRESSION: 1. Stable mild atelectasis or infiltrate left lung base. 2. Left PICC tip mid SVC. Dictated on workstation # [id number] Dict: 11/04/20 0737 Trans: 11/04/[address] [facility] [id number] Interpreted by: AMANDEEP YEE MD Electronically signed by: Assessment/Plan Assessment/Plan (1) Acute lower GI hemorrhage Status: Acute Assessment & Plan: 11/04: Consulted by General Surgery, patient on strict bowel rest, NPO 11/05: Increased pain, Repeat CT scan today, order 1 unit pRBCs due to increased dizziness and fatigue 11/06: Continue with bowel rest, started on TPN by surgery (2) Acute blood loss anemia Status: Acute Assessment & Plan: 11/04: Will get iron studies 11/06: Stable today after 1 unit pRBCs yesterday (3) Atrial fibrillation Status: Chronic Assessment & Plan: 11/04: Cardiology consulted, patient previously on OAC currently on hold Qualifiers: Qualified Codes: I48.0 - Paroxysmal atrial fibrillation (4) Rectal perforation Status: Acute Assessment & Plan: 11/04: Bowel rest (5) Hypertension Status: Chronic Assessment & Plan: 11/04: Continue home meds, continue to monitor, hold if bleeding increases Qualifiers: Qualified Codes: I10 - Essential (primary) hypertension (6) Hepatitis C Status: Resolved Assessment & Plan: - s/p treated in (7) Hyperlipidemia Status: Chronic Qualifiers: Qualified Codes: E78.2 - Mixed hyperlipidemia (8) H/O splenectomy (9) History of colon resection (10) DVT prophylaxis Assessment & Plan: - SCDs given GI bleeding NIC ANGULO MD Nov 06, 2020 17:27
[2020-11-06 20:00] VITALS: BP 131/81
[2020-11-07] VITALS (7 sets, daily range): BP systolic 101–138; BP diastolic 57–75
[2020-11-07] MEDS: BENZONATATE 100 MG (TESSALON) CAPSULE PO SCH ×5 (00:01→23:41)
[2020-11-07] MEDS: oxyCODONE/APAP 10/325MG (PERCOCET 10) TABLET PO PRN ×2 (00:05→05:44)
[2020-11-07] MEDS: LORazepam INJ 2 MG/ML (ATIVAN) VIAL IVP PRN ×2 (03:19→22:09)
[2020-11-07] MEDS: PIPERACILLIN/TAZO 4.5 GM/NS 100 ML IV SCH ×6 (05:44→22:09)
[2020-11-07 06:02] LABS: BASOPHILS # (AUTO) 0.1 10^3/uL (0.0-0.1); BASOPHILS % (AUTO) 1 % (0-10); EOSINOPHILS % (AUTO) 9 % (0-10); HEMATOCRIT 26 % (40-54); HEMOGLOBIN 8.5 g/dL (13.3-17.7); LYMPHOCYTES # (AUTO) 1.2 10^3/uL (1.0-4.0); LYMPHOCYTES % (AUTO) 11 % (12-44); MEAN CORPUSCULAR HEMOGLOBIN 27 pg (25-34); MEAN CORPUSCULAR HGB CONC 33 g/dL (32-36); MEAN CORPUSCULAR VOLUME 81 fL (80-99); MEAN PLATELET VOLUME 10.2 fL (9.0-12.2); MONOCYTES # (AUTO) 1.9 10^3/uL (0.0-1.0); MONOCYTES % (AUTO) 16 % (0-12); NEUTROPHILS # (AUTO) 7.4 10^3/uL (1.8-7.8); NEUTROPHILS % (AUTO) 63 % (42-75); PLATELET COUNT 245 10^3/uL (130-400); WHITE BLOOD COUNT 11.6 10^3/uL (4.3-11.0)
[2020-11-07 06:14] LABS: CHLORIDE 109 MMOL/L (98-107); SODIUM 138 MMOL/L (135-145)
[2020-11-07 06:15] LABS: CALCIUM 7.9 MG/DL (8.5-10.1)
[2020-11-07 06:16] LABS: GLUCOSE 100 MG/DL (70-105)
[2020-11-07 06:17] LABS: CARBON DIOXIDE 23 MMOL/L (21-32)
[2020-11-07 06:20] LABS: BUN/CREATININE RATIO 28; CREATININE SERUM 0.97 MG/DL (0.60-1.30); GFR ESTIMATED > 60
[2020-11-07] MEDS: PANTOPRAZOLE 40 MG (PROTONIX) VIAL IV SCH (08:10)
[2020-11-07] MEDS: metroNIDAZOLE 500MG/100ML IVPB 100 ML IV SCH ×2 (08:10→19:51)
[2020-11-07] MEDS: 1/2 NS IV SOLUTION 1,000 ML IV SCH (08:10)
[2020-11-07 08:18] LABS: MAGNESIUM 2.2 MG/DL (1.6-2.4); PHOSPHORUS 2.8 MG/DL (2.3-4.7)
--- NOTE | 2020-11-07 09:13 | Progress Note - Cardiology ---
Cardiology SOAP Progress Note Subjective: Lying in bed C/O continued abdominal pain No c/o CP this morning No c/o SOB or palpitations Objective: I&O/Vital Signs 11/07/20 11/07/20 11/07/20 11/07/20 04:33 06:52 08:00 09:00 Temp 36.5 36.0 Pulse 86 84 88 Resp 18 18 B/P (MAP) 110/68 (82) 115/66 (82) Pulse Ox 95 95 O2 Delivery Room Air Room Air Room Air 11/07/20 11/07/20 12:00 12:41 Temp 36.9 Pulse 73 90 Resp 16 B/P (MAP) 101/57 (72) Pulse Ox 95 O2 Delivery Room Air 11/07/20 00:00 Intake Total 50 ml Output Total 125 ml Balance -75 ml Weight (Pounds): 224 Weight (Ounces): 0 Weight (Calculated Kilograms): 101.433901 Constitutional: AAO x 3, well-developed, well-nourished Respiratory: No accessory muscle use, No respiratory distress; chest expansion is symmetric, chest is bilaterally symmetric Cardiovascular: regular rate-rhythm; No JVD; S1 and S2 Gastrointestional: tender, soft, round; No guarding; audible bowel sounds Extremities: no lower extremity edema bilateral Neurologic/Psychiatric: grossly intact (moves all extremities) Skin: No rash on exposed areas, No ulcerations on exposed areas Results/Procedures: Labs Laboratory Tests 11/07/20 00:02: Glucometer 112H 11/07/20 05:50: White Blood Count 11.6H, Red Blood Count 3.20L, Hemoglobin 8.5L, Hematocrit 26L, Mean Corpuscular Volume 81, Mean Corpuscular Hemoglobin 27, Mean Corpuscular Hemoglobin Concent 33, Red Cell Distribution Width 21.4H, Platelet Count 245, Mean Platelet Volume 10.2, Immature Granulocyte % (Auto) 0, Neutrophils (%) (Auto) 63, Lymphocytes (%) (Auto) 11L, Monocytes (%) (Auto) 16H, Eosinophils (%) (Auto) 9, Basophils (%) (Auto) 1, Neutrophils # (Auto) 7.4, Lymphocytes # (Auto) 1.2, Monocytes # (Auto) 1.9H, Eosinophils # (Auto) 1.0H, Basophils # (Auto) 0.1, Immature Granulocyte # (Auto) 0.0, Sodium Level 138, Potassium Level 4.0, Chloride Level 109H, Carbon Dioxide Level 23, Anion Gap 6, Blood Urea Nitrogen 27H, Creatinine 0.97, Estimat Glomerular Filtration Rate > 60, BUN/Creatinine Ratio 28, Glucose Level 100, Calcium Level 7.9L, Phosphorus Level 2.8, Magnesium Level 2.2 11/07/20 13:14: Glucometer 90 Microbiology 11/02/20 MRSA Screen - Final, Complete MRSA not isolated A/P: Assessment: PAF, s/p ablation by Dr Rodriguez at [facility] in 2018 or 2019; pt reports to have had recurrence in February 2020 OAC with Eliquis Mild CAD consisting of mild to mod dz of the LAD that has been unchanged on card caths of 2014, 2017, and 2018 Echo of 03/31/20: LVEF 55-65%, mod MR, PASP 35-40 mmHg H/O PE and DVT in the past per report Hep C + H/O left-sided colon resection H/O splenectomy Suspected perforation of the left posterior rectum approximately 9.2 cm from the anal verge. per CT of the abdomen on 11-03-20 - management per Dr. Lou Plan: Monitor heart rhythm OAC with Eliquis currently being held d/t bleed as noted above Currently NPO receiving TPN Monitor lab closely GEOVANNA LOCKE Nov 07, 2020 09:13
[2020-11-07] MEDS ORDERED: ALTEPLASE 2 MG (CATHFLO) IV ONE ×2 (10:30→11:15)
--- NOTE | 2020-11-07 10:30 | Progress Note ---
Subjective Date Seen by a Provider: Nov 07, 2020 Time Seen by a Provider: 09:45 Subjective/Events-last exam Patient seen with Dr. Lou. Patient reports having more abdominal pain this morning and reports it is all over as well as nausea. He did report that he vomited clear mucus this morning twice. He said he tried to have a bowel movement yesterday without success. He reports that he feels like he has pressure in the rectum. He denies passing flatus. Objective Exam Vital Signs Date Time Temp Pulse Resp B/P (MAP) Pulse Ox O2 Delivery O2 Flow Rate FiO2 11/07/20 09:00 Room Air 11/07/20 08:00 36.0 88 18 115/66 (82) 95 Room Air 11/07/20 06:52 84 11/07/20 04:33 36.5 86 18 110/68 (82) 95 Room Air 11/07/20 01:00 87 11/07/20 00:00 36.7 92 22 122/75 (91) 96 Room Air 11/06/20 20:10 Room Air 11/06/20 20:00 37.1 87 18 131/81 (98) 96 Room Air 11/06/20 19:59 97 Room Air 11/06/20 19:00 91 11/06/20 16:20 36.6 86 18 120/74 (89) 97 Room Air 11/06/20 12:51 84 I & O 11/07/20 07:00 Intake Total 100 ml Output Total 125 ml Balance -25 ml Capillary Refill : Less Than 3 SecondsLess Than 3 Seconds General Appearance: No Apparent Distress, WD/WN Respiratory: No Accessory Muscle Use, No Respiratory Distress Cardiovascular: Regular Rate, Rhythm, No Edema Gastrointestinal: soft, tenderness (Epigastric and lower abdomen) Extremity: Normal Inspection, Normal Range of Motion Neurologic/Psychiatric: Alert, Oriented x3 Skin: Normal Color, Warm/Dry Results Lab Laboratory Tests 11/07/20 00:02: Glucometer 112H 11/07/20 05:50: White Blood Count 11.6H, Red Blood Count 3.20L, Hemoglobin 8.5L, Hematocrit 26L, Mean Corpuscular Volume 81, Mean Corpuscular Hemoglobin 27, Mean Corpuscular Hemoglobin Concent 33, Red Cell Distribution Width 21.4H, Platelet Count 245, Mean Platelet Volume 10.2, Immature Granulocyte % (Auto) 0, Neutrophils (%) (Auto) 63, Lymphocytes (%) (Auto) 11L, Monocytes (%) (Auto) 16H, Eosinophils (%) (Auto) 9, Basophils (%) (Auto) 1, Neutrophils # (Auto) 7.4, Lymphocytes # (Auto) 1.2, Monocytes # (Auto) 1.9H, Eosinophils # (Auto) 1.0H, Basophils # (Auto) 0.1, Immature Granulocyte # (Auto) 0.0, Sodium Level 138, Potassium Level 4.0, Chloride Level 109H, Carbon Dioxide Level 23, Anion Gap 6, Blood Urea Nitrogen 27H, Creatinine 0.97, Estimat Glomerular Filtration Rate > 60, BUN/Creatinine Ratio 28, Glucose Level 100, Calcium Level 7.9L, Phosphorus Level 2.8, Magnesium Level 2.2 Microbiology 11/02/20 MRSA Screen - Final, Complete MRSA not isolated Assessment/Plan Assessment/Plan Assess & Plan/Chief Complaint rectal tear and bleeding secondary to trauma. bowel rest. TPN Continue abx, pain and nausea medications ambulate and IS to prevent atelectasis repeat CT scan stable. will continue with NPO and bowel rest until return of bowel fxn. . BENJAMIN TAYLOR [employer] JUSTICE Nov 07, 2020 10:30
[2020-11-07] MEDS ORDERED: WATER (STERILE) FOR INJECTION 10 ML ONE (11:49)
--- NOTE | 2020-11-07 14:08 | Progress Note - Cardiology ---
Cardiology SOAP Progress Note Subjective: No cp or palp or syncope No shortness of breath at rest Gen malaise and weakness present No n/v/d Objective: I&O/Vital Signs 11/07/20 11/07/20 11/07/20 11/07/20 04:33 06:52 08:00 09:00 Temp 36.5 36.0 Pulse 86 84 88 Resp 18 18 B/P (MAP) 110/68 (82) 115/66 (82) Pulse Ox 95 95 O2 Delivery Room Air Room Air Room Air 11/07/20 12:41 Pulse 90 11/07/20 00:00 Intake Total 50 ml Output Total 125 ml Balance -75 ml Weight (Pounds): 224 Weight (Ounces): 0 Weight (Calculated Kilograms): 101.781879 Constitutional: AAO x 3, well-developed, well-nourished Respiratory: No accessory muscle use, No respiratory distress; chest expansion is symmetric, chest is bilaterally symmetric Cardiovascular: regular rate-rhythm; No JVD; S1 and S2 Gastrointestional: tender, soft, round; No guarding; audible bowel sounds Extremities: no lower extremity edema bilateral Neurologic/Psychiatric: grossly intact (moves all extremities) Skin: No rash on exposed areas, No ulcerations on exposed areas Results/Procedures: Labs Laboratory Tests 11/07/20 00:02: Glucometer 112H 11/07/20 05:50: White Blood Count 11.6H, Red Blood Count 3.20L, Hemoglobin 8.5L, Hematocrit 26L, Mean Corpuscular Volume 81, Mean Corpuscular Hemoglobin 27, Mean Corpuscular Hemoglobin Concent 33, Red Cell Distribution Width 21.4H, Platelet Count 245, Mean Platelet Volume 10.2, Immature Granulocyte % (Auto) 0, Neutrophils (%) (Auto) 63, Lymphocytes (%) (Auto) 11L, Monocytes (%) (Auto) 16H, Eosinophils (%) (Auto) 9, Basophils (%) (Auto) 1, Neutrophils # (Auto) 7.4, Lymphocytes # (Auto) 1.2, Monocytes # (Auto) 1.9H, Eosinophils # (Auto) 1.0H, Basophils # (Auto) 0.1, Immature Granulocyte # (Auto) 0.0, Sodium Level 138, Potassium Level 4.0, Chloride Level 109H, Carbon Dioxide Level 23, Anion Gap 6, Blood Urea Nitrogen 27H, Creatinine 0.97, Estimat Glomerular Filtration Rate > 60, BUN/Creatinine Ratio 28, Glucose Level 100, Calcium Level 7.9L, Phosphorus Level 2.8, Magnesium Level 2.2 11/07/20 13:14: Glucometer 90 Microbiology 11/02/20 MRSA Screen - Final, Complete MRSA not isolated Laboratory Tests 11/06/20 06:01 11/07/20 05:50 A/P: Assessment: Suspected perforation of the left posterior rectum approximately 9.2 cm from the anal verge, per CT of the abdomen on 11-03-20, associated with GI bleed - management per Dr. Carmine FERRIS, s/p ablation by Dr Rodriguez at [facility] in 2018 or 2019; pt reports to have had recurrence in February 2020 OAC with Eliquis, currently held because of GI bleed Mild CAD consisting of mild to mod dz of the LAD that has been unchanged on card caths of 2014, 2017, and 2018 Echo of 03/31/20: LVEF 55-65%, mod MR, PASP 35-40 mmHg H/O PE and DVT in the past per report Hep C + H/O left-sided colon resection H/O splenectomy Plan: Monitor heart rhythm OAC with Eliquis currently being held d/t bleed as noted above Currently NPO receiving TPN Monitor lab closely KAYLAN FULTON MD [facility] CCDS Nov 07, 2020 14:08
[2020-11-07] MEDS: ONDANSETRON 4 MG/2 ML (SDV) Z0FRAN IVP PRN (14:13)
--- NOTE | 2020-11-07 14:57 | Progress Note ---
Subjective Subjective/Events-last exam Patient states that his pain is some better but he has increase with ambulation or moving around. Feels like he needs to have a stool and tried this AM and nothing came out. Currently NPO and able to do some ice chips. Review of Systems Pulmonary: No Dyspnea, No Cough Cardiovascular: No: Chest Pain, Palpitations Gastrointestinal: Nausea, Abdominal Pain, Constipation Genitourinary: No Dysuria, No Frequency, No Incontinence Neurological: Weakness Objective Exam Last Set of Vital Signs Vital Signs Date Time Temp Pulse Resp B/P (MAP) Pulse Ox O2 Delivery O2 Flow Rate FiO2 11/07/20 12:41 90 11/07/20 12:00 36.9 16 101/57 (72) 95 Room Air Capillary Refill : Less Than 3 SecondsLess Than 3 Seconds I&O Intake and Output 11/06/20 23:59 Intake Total 100 ml Output Total 725 ml Balance -625 ml Intake Oral 100 ml Output Urine Total 725 ml # Voids 4 General: Alert, Oriented X3, Cooperative, No Acute Distress HEENT: Mucous Memb Moist/[place] Lungs: Clear to Auscultation, Normal Air Movement Heart: Regular Rate, No Murmurs Abdomen: Soft, Other (hypoactive bowel sounds, mild gaurding LLQ, no rebound) Extremities: No Edema, No Tenderness/Swelling Psych/Mental Status: Mental Status NL, Other (depressed mood) Results/Procedures Lab Laboratory Tests 11/07/20 00:02: Glucometer 112H 11/07/20 05:50: White Blood Count 11.6H, Red Blood Count 3.20L, Hemoglobin 8.5L, Hematocrit 26L, Mean Corpuscular Volume 81, Mean Corpuscular Hemoglobin 27, Mean Corpuscular Hemoglobin Concent 33, Red Cell Distribution Width 21.4H, Platelet Count 245, Mean Platelet Volume 10.2, Immature Granulocyte % (Auto) 0, Neutrophils (%) (Auto) 63, Lymphocytes (%) (Auto) 11L, Monocytes (%) (Auto) 16H, Eosinophils (%) (Auto) 9, Basophils (%) (Auto) 1, Neutrophils # (Auto) 7.4, Lymphocytes # (Auto) 1.2, Monocytes # (Auto) 1.9H, Eosinophils # (Auto) 1.0H, Basophils # (Auto) 0.1, Immature Granulocyte # (Auto) 0.0, Sodium Level 138, Potassium Level 4.0, Chloride Level 109H, Carbon Dioxide Level 23, Anion Gap 6, Blood Urea Nitrogen 27H, Creatinine 0.97, Estimat Glomerular Filtration Rate > 60, BUN/Creatinine R atio 28, Glucose Level 100, Calcium Level 7.9L, Phosphorus Level 2.8, Magnesium Level 2.2 11/07/20 13:14: Glucometer 90 Microbiology 11/02/20 MRSA Screen - Final, Complete MRSA not isolated Radiology NAME: JUAN CARLOS GAFFNEY [facility] REC#: [id number] PT STATUS: ADM IN : 1960 PHYSICIAN: IMMANEUL FRANCO MD ADMIT DATE: 11/02/20/ICU Draft Date of Exam:11/04/20 CHEST 1 VIEW, AP/PA ONLY EXAM: CHEST 1 VIEW, AP/PA ONLY INDICATION: Acute blood loss. Anemia. COMPARISON: Chest radiograph 11/03/2020. FINDINGS: Normal heart size and central pulmonary vascularity. Left PICC tip mid SVC. Mild atelectasis or infiltrate and left lung base is stable. No large pleural effusion or pneumothorax. Surgical clips LUQ. IMPRESSION: 1. Stable mild atelectasis or infiltrate left lung base. 2. Left PICC tip mid SVC. Dictated on workstation # [id number] Dict: 11/04/20 0737 Trans: 11/04/20 0739 CVB [id number] Interpreted by: AMANDEEP YEE MD Electronically signed by: Assessment/Plan Assessment/Plan (1) Acute lower GI hemorrhage Status: Acute Assessment & Plan: 11/04: Consulted by General Surgery, patient on strict bowel rest, NPO 11/05: Increased pain, Repeat CT scan today, order 1 unit pRBCs due to increased dizziness and fatigue 11/06: Continue with bowel rest, started on TPN by surgery 11/07: Continue bowel rest and TPN (2) Acute blood loss anemia Status: Acute Assessment & Plan: 11/04: Will get iron studies 11/06: Stable today after 1 unit pRBCs yesterday (3) Atrial fibrillation Status: Chronic Assessment & Plan: 11/04: Cardiology consulted, patient previously on OAC currently on hold Qualifiers: Qualified Codes: I48.0 - Paroxysmal atrial fibrillation (4) Rectal perforation Status: Acute Assessment & Plan: 11/04: Bowel rest (5) Hypertension Status: Chronic Assessment & Plan: 11/04: Continue home meds, continue to monitor, hold if bleeding increases Qualifiers: Qualified Codes: I10 - Essential (primary) hypertension (6) Hepatitis C Status: Resolved Assessment & Plan: - s/p treated in (7) Hyperlipidemia Status: Chronic Qualifiers: Qualified Codes: E78.2 - Mixed hyperlipidemia (8) H/O splenectomy (9) History of colon resection (10) DVT prophylaxis Assessment & Plan: - SCDs given GI bleeding NIC ANGULO MD Nov 07, 2020 14:57
[2020-11-07] MEDS: POTASSIUM CHLORIDE IV SCH ×10 (17:23)
[2020-11-07] MEDS: SODIUM ACETATE IV SCH ×10 (17:23)
[2020-11-07] MEDS: SODIUM PHOSPHATE IV SCH ×10 (17:23)
[2020-11-07] MEDS: [UNRECOGNIZED DRUG - OTHER] IV SCH ×10 (17:23)
[2020-11-08 04:00] VITALS: BP 127/77
[2020-11-08] MEDS: BENZONATATE 100 MG (TESSALON) CAPSULE PO SCH ×3 (05:29→18:25)
[2020-11-08 05:39] LABS: BASOPHILS # (AUTO) 0.1 10^3/uL (0.0-0.1); BASOPHILS % (AUTO) 1 % (0-10); EOSINOPHILS # (AUTO) 0.9 10^3/uL (0.0-0.3); EOSINOPHILS % (AUTO) 8 % (0-10); HEMATOCRIT 26 % (40-54); HEMOGLOBIN 8.3 g/dL (13.3-17.7); LYMPHOCYTES # (AUTO) 1.2 10^3/uL (1.0-4.0); LYMPHOCYTES % (AUTO) 11 % (12-44); MEAN CORPUSCULAR HEMOGLOBIN 26 pg (25-34); MEAN CORPUSCULAR HGB CONC 32 g/dL (32-36); MEAN CORPUSCULAR VOLUME 81 fL (80-99); MEAN PLATELET VOLUME 10.1 fL (9.0-12.2); MONOCYTES # (AUTO) 2.1 10^3/uL (0.0-1.0); MONOCYTES % (AUTO) 19 % (0-12); NEUTROPHILS # (AUTO) 6.5 10^3/uL (1.8-7.8); NEUTROPHILS % (AUTO) 60 % (42-75); PLATELET COUNT 303 10^3/uL (130-400); WHITE BLOOD COUNT 10.8 10^3/uL (4.3-11.0)
[2020-11-08 05:45] LABS: CHLORIDE 109 MMOL/L (98-107); SODIUM 140 MMOL/L (135-145)
[2020-11-08 05:46] LABS: CALCIUM 7.9 MG/DL (8.5-10.1)
[2020-11-08 05:47] LABS: GLUCOSE 90 MG/DL (70-105)
[2020-11-08 05:48] LABS: CARBON DIOXIDE 25 MMOL/L (21-32)
[2020-11-08 05:50] LABS: PHOSPHORUS 2.7 MG/DL (2.3-4.7)
[2020-11-08 05:51] LABS: CREATININE SERUM 0.97 MG/DL (0.60-1.30); GFR ESTIMATED > 60
[2020-11-08 05:52] LABS: BUN/CREATININE RATIO 27
[2020-11-08 05:53] LABS: MAGNESIUM 2.1 MG/DL (1.6-2.4)
[2020-11-08 08:00] VITALS: BP 119/80
[2020-11-08] MEDS: PANTOPRAZOLE 40 MG (PROTONIX) VIAL IV SCH (08:38)
[2020-11-08] MEDS: metroNIDAZOLE 500MG/100ML IVPB 100 ML IV SCH ×2 (08:39→20:26)
[2020-11-08] MEDS: 1/2 NS IV SOLUTION 1,000 ML IV SCH (08:39)
--- NOTE | 2020-11-08 11:35 | Progress Note ---
Subjective Date Seen by a Provider: Nov 08, 2020 Time Seen by a Provider: 10:00 Subjective/Events-last exam doing ok. passed flatus. no BM yet. no nausea/vomiting. no fever/chills. Objective Exam Vital Signs Date Time Temp Pulse Resp B/P (MAP) Pulse Ox O2 Delivery O2 Flow Rate FiO2 11/08/20 09:00 Room Air 11/08/20 08:00 36.3 80 16 119/80 (93) 95 Room Air 11/08/20 07:00 80 11/08/20 04:00 37.0 80 18 127/77 (94) 95 Room Air 11/08/20 01:00 90 11/07/20 23:43 37.6 89 20 101/58 (72) 94 Room Air 11/07/20 23:31 95 Room Air 11/07/20 20:05 Room Air 11/07/20 19:29 36.7 90 18 119/62 (81) 95 Room Air 11/07/20 19:00 94 11/07/20 16:00 37.4 89 18 138/69 (92) 96 Room Air 11/07/20 12:41 90 11/07/20 12:00 36.9 73 16 101/57 (72) 95 Room Air I & O 11/08/20 07:00 Intake Total 100 ml Output Total 575 ml Balance -475 ml Capillary Refill : Less Than 3 SecondsLess Than 3 Seconds General Appearance: No Apparent Distress HEENT: PERRL/EOMI Neck: Full Range of Motion Respiratory: Chest Non Tender, Lungs Clear Cardiovascular: Regular Rate, Rhythm Gastrointestinal: soft, tenderness Extremity: Normal Capillary Refill Neurologic/Psychiatric: Alert, Oriented x3 Skin: Normal Color Lymphatic: No Adenopathy Results Lab Laboratory Tests 11/07/20 13:14: Glucometer 90 11/07/20 17:02: Glucometer 122H 11/07/20 23:45: Glucometer 123H 11/08/20 05:25: White Blood Count 10.8, Red Blood Count 3.17L, Hemoglobin 8.3L, Hematocrit 26L, Mean Corpuscular Volume 81, Mean Corpuscular Hemoglobin 26, Mean Corpuscular Hemoglobin Concent 32, Red Cell Distribution Width 21.3H, Platelet Count 303, Mean Platelet Volume 10.1, Immature Granulocyte % (Auto) 0, Neutrophils (%) (Auto) 60, Lymphocytes (%) (Auto) 11L, Monocytes (%) (Auto) 19H, Eosinophils (%) (Auto) 8, Basophils (%) (Auto) 1, Neutrophils # (Auto) 6.5, Lymphocytes # (Auto) 1.2, Monocytes # (Auto) 2.1H, Eosinophils # (Auto) 0.9H, Basophils # (Auto) 0.1, Immature Granulocyte # (Auto) 0.0, Sodium Level 140, Potassium Level 4.0, Chloride Level 109H, Carbon Dioxide Level 25, Anion Gap 6, Blood Urea Nitrogen 26H, Creatinine 0.97, Estimat Glomerular Filtration Rate > 60, BUN/Creatinine Ratio 27, Glucose Level 90, Calcium Level 7.9L, Phosphorus Level 2.7, Magnesium Level 2.1 Microbiology 11/02/20 MRSA Screen - Final, Complete MRSA not isolated Assessment/Plan Assessment/Plan Assess & Plan/Chief Complaint rectal tear and bleeding secondary to trauma. bowel rest. TPN abx. add flagyl ambulate and IS to prevent atelectasis repeat CT scan stable. will continue with NPO and bowel rest until return of bowel fxn. when more significant bowel fxn, will start clears. IMMANUEL FRANCO MD Nov 08, 2020 11:35
[2020-11-08 12:00] VITALS: BP 106/60
--- NOTE | 2020-11-08 12:34 | Progress Note ---
Subjective Subjective/Events-last exam Patient resting comfortably this AM. Still NPO. Pain is about the same Review of Systems Pulmonary: No Dyspnea, No Cough Gastrointestinal: Abdominal Pain; No: Nausea, Vomiting Genitourinary: No Dysuria, No Frequency, No Incontinence Neurological: No: Weakness, Incoordination Objective Exam Last Set of Vital Signs Vital Signs Date Time Temp Pulse Resp B/P (MAP) Pulse Ox O2 Delivery O2 Flow Rate FiO2 11/08/20 09:00 Room Air 11/08/20 08:00 36.3 80 16 119/80 (93) 95 Capillary Refill : Less Than 3 SecondsLess Than 3 Seconds I&O Intake and Output 11/08/20 00:00 Intake Total 150 ml Output Total 575 ml Balance -425 ml Intake Oral 150 ml Output Urine Total 575 ml # Voids 1 General: Alert, Oriented X3, Cooperative, No Acute Distress Lungs: Clear to Auscultation, Normal Air Movement Heart: Regular Rate, No Murmurs Abdomen: Soft, Other (hypoactive bowel sounds, diffuse abdominal ttp greatest at LLQ) Psych/Mental Status: Mental Status NL, Mood NL Results/Procedures Lab Laboratory Tests 11/07/20 13:14: Glucometer 90 11/07/20 17:02: Glucometer 122H 11/07/20 23:45: Glucometer 123H 11/08/20 05:25: White Blood Count 10.8, Red Blood Count 3.17L, Hemoglobin 8.3L, Hematocrit 26L, Mean Corpuscular Volume 81, Mean Corpuscular Hemoglobin 26, Mean Corpuscular Hemoglobin Concent 32, Red Cell Distribution Width 21.3H, Platelet Count 303, Mean Platelet Volume 10.1, Immature Granulocyte % (Auto) 0, Neutrophils (%) (Auto) 60, Lymphocytes (%) (Auto) 11L, Monocytes (%) (Auto) 19H, Eosinophils (%) (Auto) 8, Basophils (%) (Auto) 1, Neutrophils # (Auto) 6.5, Lymphocytes # (Auto) 1.2, Monocytes # (Auto) 2.1H, Eosinophils # (Auto) 0.9H, Basophils # (Auto) 0.1, Immature Granulocyte # (Auto) 0.0, Sodium Level 140, Potassium Level 4.0, Chloride Level 109H, Carbon Dioxide Level 25, Anion Gap 6, Blood Urea Nitrogen 26H, Creatinine 0.97, Estimat Glomerular Filtration Rate > 60, BUN/Creatinine Ratio 27, Glucose Level 90, Calcium Level 7.9L, Phosphorus Level 2.7, Magnesium Level 2.1 Microbiology 11/02/20 MRSA Screen - Final, Complete MRSA not isolated Radiology NAME: JUAN CARLOS GAFFNEY [facility] REC#: [id number] PT STATUS: ADM IN : 1960 PHYSICIAN: IMMANUEL FRANCO MD ADMIT DATE: 11/02/20/ICU Draft Date of Exam:11/04/20 CHEST 1 VIEW, AP/PA ONLY EXAM: CHEST 1 VIEW, AP/PA ONLY INDICATION: Acute blood loss. Anemia. COMPARISON: Chest radiograph 11/03/2020. FINDINGS: Normal heart size and central pulmonary vascularity. Left PICC tip mid SVC. Mild atelectasis or infiltrate and left lung base is stable. No large pleural effusion or pneumothorax. Surgical clips LUQ. IMPRESSION: 1. Stable mild atelectasis or infiltrate left lung base. 2. Left PICC tip mid SVC. Dictated on workstation # [id number] Dict: 11/04/20 0737 Trans: 11/04/20 0739 CV [id number] Interpreted by: AMANDEEP YEE MD Electronically signed by: Assessment/Plan Assessment/Plan (1) Acute lower GI hemorrhage Status: Acute Assessment & Plan: 11/04: Consulted by General Surgery, patient on strict bowel rest, NPO 11/05: Increased pain, Repeat CT scan today, order 1 unit pRBCs due to increased dizziness and fatigue 11/06: Continue with bowel rest, started on TPN by surgery 11/07: Continue bowel rest and TPN 11/08: Passed flatus, continue bowel rest and TPN until BM (2) Acute blood loss anemia Status: Acute Assessment & Plan: 11/04: Will get iron studies 11/06: Stable today after 1 unit pRBCs yesterday (3) Atrial fibrillation Status: Chronic Assessment & Plan: 11/04: Cardiology consulted, patient previously on OAC currently on hold Qualifiers: Qualified Codes: I48.0 - Paroxysmal atrial fibrillation (4) Rectal perforation Status: Acute Assessment & Plan: 11/04: Bowel rest (5) Hypertension Status: Chronic Assessment & Plan: 11/04: Continue home meds, continue to monitor, hold if bleeding increases Qualifiers: Qualified Codes: I10 - Essential (primary) hypertension (6) Hepatitis C Status: Resolved Assessment & Plan: - s/p treated in (7) Hyperlipidemia Status: Chronic Qualifiers: Qualified Codes: E78.2 - Mixed hyperlipidemia (8) H/O splenectomy (9) History of colon resection (10) DVT prophylaxis Assessment & Plan: - SCDs given GI bleeding NIC ANGULO MD Nov 08, 2020 12:34
[2020-11-08] MEDS: LORazepam INJ 2 MG/ML (ATIVAN) VIAL IVP PRN ×2 (15:49→22:14)
[2020-11-08 15:55] VITALS: BP 120/73
--- NOTE | 2020-11-08 16:36 | Cardiology Progress Note ---
Cardiology SOAP Progress Note Subjective: Feels okay. Objective: I&O/Vital Signs 11/09/20 11/09/20 11/09/20 11/09/20 04:03 07:00 07:35 09:00 Temp 36.8 36.4 Pulse 90 85 80 Resp 18 18 B/P (MAP) 121/70 (87) 135/78 (97) Pulse Ox 96 95 95 O2 Delivery Room Air Room Air Room Air 11/09/20 11/09/20 11:23 13:00 Temp 37.2 Pulse 77 90 Resp 18 B/P (MAP) 147/92 (110) Pulse Ox 98 O2 Delivery Room Air 11/09/20 00:00 Output Total 575 ml Balance -575 ml Weight (Pounds): 224 Weight (Ounces): 0 Weight (Calculated Kilograms): 101.887948 Constitutional: AAO x 3, well-developed, well-nourished Respiratory: No accessory muscle use, No respiratory distress; chest expansion is symmetric, chest is bilaterally symmetric Cardiovascular: regular rate-rhythm; No JVD; S1 and S2 Gastrointestional: tender, soft, round; No guarding; audible bowel sounds Extremities: no lower extremity edema bilateral Neurologic/Psychiatric: grossly intact (moves all extremities) Skin: No rash on exposed areas, No ulcerations on exposed areas Results/Procedures: Labs Laboratory Tests 11/08/20 17:20: Glucometer 127H 11/09/20 00:10: Glucometer 120H 11/09/20 04:55: White Blood Count 10.0, Red Blood Count 3.13L, Hemoglobin 8.2L, Hematocrit 26L, Mean Corpuscular Volume 82, Mean Corpuscular Hemoglobin 26, Mean Corpuscular Hemoglobin Concent 32, Red Cell Distribution Width 21.7H, Platelet Count 328, Mean Platelet Volume 10.7, Immature Granulocyte % (Auto) 0, Neutrophils (%) (Au to) 68, Lymphocytes (%) (Auto) 10L, Monocytes (%) (Auto) 16H, Eosinophils (%) (Auto) 5, Basophils (%) (Auto) 1, Neutrophils # (Auto) 6.8, Lymphocytes # (Auto) 1.0, Monocytes # (Auto) 1.6H, Eosinophils # (Auto) 0.5H, Basophils # (Auto) 0.1, Immature Granulocyte # (Auto) 0.0, Sodium Level 140, Potassium Level 4.1, Chloride Level 109H, Carbon Dioxide Level 23, Anion Gap 8, Blood Urea Nitrogen 26H, Creatinine 0.92, Estimat Glomerular Filtration Rate > 60, BUN/Creatinine Ratio 28, Glucose Level 144H, Calcium Level 8.1L 11/09/20 10:56: Glucometer 130H Microbiology 11/02/20 MRSA Screen - Final, Complete MRSA not isolated A/P: Assessment/Dx: Suspected perforation of the left posterior rectum approximately 9.2 cm from the anal verge, per CT of the abdomen on 11-03-20, associated with GI bleed - management per Dr. Carmine FERRIS, s/p ablation by Dr Rodriguez at [facility] in 2018 or 2019; pt reports to have had recurrence in February 2020 OAC with Eliquis, currently held because of GI bleed Mild CAD consisting of mild to mod dz of the LAD that has been unchanged on card caths of 2014, 2017, and 2018 Echo of 03/31/20: LVEF 55-65%, mod MR, PASP 35-40 mmHg H/O PE and DVT in the past per report Hep C + H/O left-sided colon resection H/O splenectomy Plan: Monitor heart rhythm OAC with Eliquis currently being held d/t bleed as noted above Monitor lab closely Thank you for your consultation. Please call me if you have any questions. Michael Patterson MD, FACP, FACC, FSCAI, FHRS, CCDS Interventional Cardiology Cardiac Electrophysiology Vascular Medicine and Endovascular Interventions Kitty PATTERSON MD Nov 08, 2020 16:36
[2020-11-08] MEDS: [UNRECOGNIZED DRUG - OTHER] IV SCH ×10 (17:34)
[2020-11-08] MEDS: SODIUM ACETATE IV SCH ×10 (17:34)
[2020-11-08] MEDS: SODIUM PHOSPHATE IV SCH ×10 (17:34)
[2020-11-08] MEDS: POTASSIUM CHLORIDE IV SCH ×10 (17:34)
[2020-11-08 20:12] VITALS: BP 124/70
[2020-11-08] MEDS: HYDROmorphone 2 MG/ML VIAL (DILAUDID) IV PRN (20:26)
[2020-11-09] MEDS: BENZONATATE 100 MG (TESSALON) CAPSULE PO SCH ×4 (00:08→23:45)
[2020-11-09 00:10] VITALS: BP 126/80
[2020-11-09 04:03] VITALS: BP 121/70
[2020-11-09 06:32] LABS: BASOPHILS # (AUTO) 0.1 10^3/uL (0.0-0.1); BASOPHILS % (AUTO) 1 % (0-10); EOSINOPHILS # (AUTO) 0.5 10^3/uL (0.0-0.3); EOSINOPHILS % (AUTO) 5 % (0-10); HEMATOCRIT 26 % (40-54); HEMOGLOBIN 8.2 g/dL (13.3-17.7); LYMPHOCYTES % (AUTO) 10 % (12-44); MEAN CORPUSCULAR HEMOGLOBIN 26 pg (25-34); MEAN CORPUSCULAR HGB CONC 32 g/dL (32-36); MEAN CORPUSCULAR VOLUME 82 fL (80-99); MEAN PLATELET VOLUME 10.7 fL (9.0-12.2); MONOCYTES # (AUTO) 1.6 10^3/uL (0.0-1.0); MONOCYTES % (AUTO) 16 % (0-12); NEUTROPHILS # (AUTO) 6.8 10^3/uL (1.8-7.8); NEUTROPHILS % (AUTO) 68 % (42-75); PLATELET COUNT 328 10^3/uL (130-400)
[2020-11-09 06:38] LABS: CHLORIDE 109 MMOL/L (98-107); POTASSIUM 4.1 MMOL/L (3.6-5.0); SODIUM 140 MMOL/L (135-145)
[2020-11-09 06:39] LABS: CALCIUM 8.1 MG/DL (8.5-10.1)
[2020-11-09 06:40] LABS: GLUCOSE 144 MG/DL (70-105)
[2020-11-09 06:41] LABS: CARBON DIOXIDE 23 MMOL/L (21-32)
[2020-11-09 06:44] LABS: CREATININE SERUM 0.92 MG/DL (0.60-1.30); GFR ESTIMATED > 60
[2020-11-09 06:45] LABS: BUN/CREATININE RATIO 28
[2020-11-09] MEDS: 1/2 NS IV SOLUTION 1,000 ML IV SCH ×2 (06:50→08:13)
[2020-11-09 07:35] VITALS: BP 135/78
[2020-11-09] MEDS: metroNIDAZOLE 500MG/100ML IVPB 100 ML IV SCH ×2 (08:13→20:52)
[2020-11-09] MEDS: PANTOPRAZOLE 40 MG (PROTONIX) VIAL IV SCH (08:13)
[2020-11-09 11:23] VITALS: BP 147/92
--- NOTE | 2020-11-09 11:32 | Progress Note ---
Subjective Date Seen by a Provider: Nov 09, 2020 Time Seen by a Provider: 10:30 Subjective/Events-last exam doing better today. less pain and passing flatus. ambulating better as well. no rectal bleed. Objective Exam Vital Signs Date Time Temp Pulse Resp B/P (MAP) Pulse Ox O2 Delivery O2 Flow Rate FiO2 11/09/20 11:23 37.2 77 18 147/92 (110) 98 Room Air 11/09/20 09:00 95 Room Air 11/09/20 07:35 36.4 80 18 135/78 (97) 95 Room Air 11/09/20 07:00 85 11/09/20 04:03 36.8 90 18 121/70 (87) 96 Room Air 11/09/20 01:00 90 11/09/20 00:10 36.9 91 18 126/80 (95) 95 Room Air 11/08/20 21:27 Room Air 11/08/20 20:12 37.4 87 22 124/70 (88) 94 Room Air 11/08/20 19:00 85 11/08/20 15:55 37.0 86 19 120/73 (89) 100 Room Air 11/08/20 12:45 87 11/08/20 12:00 36.0 83 16 106/60 (75) 94 Room Air I & O 11/09/20 07:00 Output Total 575 ml Balance -575 ml Capillary Refill : Less Than 3 SecondsLess Than 3 Seconds General Appearance: No Apparent Distress HEENT: PERRL/EOMI Neck: Full Range of Motion Respiratory: Chest Non Tender, Rhonci Cardiovascular: Regular Rate, Rhythm Gastrointestinal: normal bowel sounds, soft, tenderness Extremity: Normal Capillary Refill Neurologic/Psychiatric: Alert, Oriented x3 Skin: Normal Color Lymphatic: No Adenopathy Results Lab Laboratory Tests 11/08/20 17:20: Glucometer 127H 11/09/20 00:10: Glucometer 120H 11/09/20 04:55: White Blood Count 10.0, Red Blood Count 3.13L, Hemoglobin 8.2L, Hematocrit 26L, Mean Corpuscular Volume 82, Mean Corpuscular Hemoglobin 26, Mean Corpuscular Hemoglobin Concent 32, Red Cell Distribution Width 21.7H, Platelet Count 328, Mean Platelet Volume 10.7, Immature Granulocyte % (Auto) 0, Neutrophils (%) (Auto) 68, Lymphocytes (%) (Auto) 10L, Monocytes (%) (Auto) 16H, Eosinophils (%) (Auto) 5, Basophils (%) (Auto) 1, Neutrophils # (Auto) 6.8, Lymphocytes # (Auto) 1.0, Monocytes # (Auto) 1.6H, Eosinophils # (Auto) 0.5H, Basophils # (Auto) 0.1, Immature Granulocyte # (Auto) 0.0, Sodium Level 140, Potassium Level 4.1, Chloride Level 109H, Carbon Dioxide Level 23, Anion Gap 8, Blood Urea Nitrogen 26H, Creatinine 0.92, Estimat Glomerular Filtration Rate > 60, BUN/Creatinine Ratio 28, Glucose Level 144H, Calcium Level 8.1L 11/09/20 10:56: Glucometer 130H Microbiology 11/02/20 MRSA Screen - Final, Complete MRSA not isolated Assessment/Plan Assessment/Plan Assess & Plan/Chief Complaint rectal tear and bleeding secondary to trauma. bowel rest. TPN abx. add flagyl ambulate and IS to prevent atelectasis repeat CT scan stable. start clear liquid diet. IMMANUEL FRANCO MD Nov 09, 2020 11:32
[2020-11-09] MEDS: HYDROmorphone 2 MG/ML VIAL (DILAUDID) IV PRN (12:06)
[2020-11-09] MEDS: LORazepam INJ 2 MG/ML (ATIVAN) VIAL IVP PRN (12:09)
--- NOTE | 2020-11-09 14:12 | Progress Note - Hospitalist ---
Subjective HPI/CC On Admission Date Seen by Provider: Nov 09, 2020 Time Seen by Provider: 13:00 Subjective/Events-last exam Patient reports feeling better less rectal pain no further bleeding no chills or fever appetite improving. Objective Exam Vital Signs Vital Signs Date Time Temp Pulse Resp B/P (MAP) Pulse Ox O2 Delivery O2 Flow Rate FiO2 11/09/20 13:00 90 11/09/20 11:23 37.2 18 147/92 (110) 98 Room Air Capillary Refill : Less Than 3 SecondsLess Than 3 Seconds General Appearance: No Apparent Distress Respiratory: Chest Non Tender, Lungs Clear, Normal Breath Sounds, No Accessory Muscle Use, No Respiratory Distress Cardiovascular: Regular Rate, Rhythm, No Edema, No Gallop, No JVD, No Murmur, Normal Peripheral Pulses Gastrointestinal: Normal Bowel Sounds, No Organomegaly, No Pulsatile Mass, Non Tender, Soft Results/Procedures Lab Laboratory Tests 11/09/20 04:55 Patient resulted labs reviewed. Assessment/Plan Assessment and Plan Assess & Plan/Chief Complaint (1) Acute lower GI hemorrhage Status: Acute Assessment & Plan: 11/04: Consulted by General Surgery, patient on strict bowel rest, NPO 11/05: Increased pain, Repeat CT scan today, order 1 unit pRBCs due to increased dizziness and fatigue 11/06: Continue with bowel rest, started on TPN by surgery 11/07: Continue bowel rest and TPN 11/08: Passed flatus, continue bowel rest and TPN until BM 11/09: Patient tolerating clear liquids with improvement in symptoms and no concerning infectious type symptoms continue antibiotics. (2) Acute blood loss anemia Status: Acute Assessment & Plan: 11/04: Will get iron studies 11/06: Stable today after 1 unit pRBCs yesterday (3) Atrial fibrillation Status: Chronic Assessment & Plan: 11/04: Cardiology consulted, patient previously on OAC currently on hold Qualifiers: Qualified Codes: I48.0 - Paroxysmal atrial fibrillation (4) Rectal perforation Status: Acute Assessment & Plan: 11/04: Bowel rest (5) Hypertension Status: Chronic Assessment & Plan: 11/04: Continue home meds, continue to monitor, hold if bleeding increases Qualifiers: Qualified Codes: I10 - Essential (primary) hypertension (6) Hepatitis C Status: Resolved Assessment & Plan: - s/p treated in (7) Hyperlipidemia Status: Chronic Qualifiers: Qualified Codes: E78.2 - Mixed hyperlipidemia (8) H/O splenectomy (9) History of colon resection (10) DVT prophylaxis Assessment & Plan: - SCDs given GI bleeding JUAN CARLOS GARDUNO MD Nov 09, 2020 14:12
[2020-11-09 15:59] VITALS: BP 121/73
[2020-11-09] MEDS: [UNRECOGNIZED DRUG - OTHER] IV SCH ×10 (17:50)
[2020-11-09] MEDS: SODIUM ACETATE IV SCH ×10 (17:50)
[2020-11-09] MEDS: SODIUM PHOSPHATE IV SCH ×10 (17:50)
[2020-11-09] MEDS: POTASSIUM CHLORIDE IV SCH ×10 (17:50)
[2020-11-09 19:32] VITALS: BP 146/82
[2020-11-10] VITALS (9 sets, daily range): BP systolic 110–176; BP diastolic 64–120
[2020-11-10 05:27] LABS: BASOPHILS # (AUTO) 0.1 10^3/uL (0.0-0.1); BASOPHILS % (AUTO) 1 % (0-10); EOSINOPHILS # (AUTO) 0.6 10^3/uL (0.0-0.3); EOSINOPHILS % (AUTO) 6 % (0-10); HEMATOCRIT 26 % (40-54); HEMOGLOBIN 8.4 g/dL (13.3-17.7); LYMPHOCYTES # (AUTO) 1.3 10^3/uL (1.0-4.0); LYMPHOCYTES % (AUTO) 13 % (12-44); MEAN CORPUSCULAR HEMOGLOBIN 26 pg (25-34); MEAN CORPUSCULAR HGB CONC 32 g/dL (32-36); MEAN CORPUSCULAR VOLUME 82 fL (80-99); MEAN PLATELET VOLUME 10.5 fL (9.0-12.2); MONOCYTES # (AUTO) 1.6 10^3/uL (0.0-1.0); MONOCYTES % (AUTO) 16 % (0-12); NEUTROPHILS # (AUTO) 6.6 10^3/uL (1.8-7.8); NEUTROPHILS % (AUTO) 65 % (42-75); PLATELET COUNT 379 10^3/uL (130-400); WHITE BLOOD COUNT 10.2 10^3/uL (4.3-11.0)
[2020-11-10 05:38] LABS: CHLORIDE 109 MMOL/L (98-107); SODIUM 140 MMOL/L (135-145)
[2020-11-10 05:40] LABS: GLUCOSE 137 MG/DL (70-105)
[2020-11-10 05:42] LABS: CARBON DIOXIDE 24 MMOL/L (21-32)
[2020-11-10 05:44] LABS: CREATININE SERUM 0.86 MG/DL (0.60-1.30); GFR ESTIMATED > 60
[2020-11-10 05:45] LABS: BUN/CREATININE RATIO 29
[2020-11-10] MEDS: BENZONATATE 100 MG (TESSALON) CAPSULE PO SCH ×4 (06:13→23:40)
[2020-11-10] MEDS: 1/2 NS IV SOLUTION 1,000 ML IV SCH (07:30)
[2020-11-10] MEDS: metroNIDAZOLE 500MG/100ML IVPB 100 ML IV SCH (09:23)
[2020-11-10] MEDS: PANTOPRAZOLE 40 MG (PROTONIX) VIAL IV SCH ×2 (09:23→20:35)
--- NOTE | 2020-11-10 10:28 | Progress Note ---
Subjective Date Seen by a Provider: Nov 10, 2020 Time Seen by a Provider: 10:00 Subjective/Events-last exam doing ok. passing flatus. pain controlled. no BM. no fever/chills. Objective Exam Vital Signs Date Time Temp Pulse Resp B/P (MAP) Pulse Ox O2 Delivery O2 Flow Rate FiO2 11/10/20 09:38 Room Air 11/10/20 09:08 36.5 87 20 155/98 (117) 97 Room Air 11/10/20 07:39 36.9 84 20 155/96 (115) 97 Room Air 11/10/20 07:00 83 11/10/20 03:56 36.8 83 16 119/70 (86) 95 Room Air 11/10/20 01:00 90 11/10/20 00:00 36.8 87 17 138/83 (101) 97 Room Air 11/09/20 23:18 93 Room Air 11/09/20 20:50 Room Air 11/09/20 19:32 36.6 86 20 146/82 (103) 92 Room Air 11/09/20 19:00 100 11/09/20 15:59 36.4 84 18 121/73 (89) 96 Room Air 11/09/20 13:00 90 11/09/20 11:23 37.2 77 18 147/92 (110) 98 Room Air I & O 11/10/20 07:00 Intake Total 1020 ml Output Total 900 ml Balance 120 ml Capillary Refill : Less Than 3 SecondsLess Than 3 Seconds General Appearance: No Apparent Distress HEENT: PERRL/EOMI Neck: Full Range of Motion Respiratory: Decreased Breath Sounds, Wheezing Cardiovascular: Regular Rate, Rhythm Gastrointestinal: normal bowel sounds, soft Extremity: Normal Capillary Refill Neurologic/Psychiatric: Alert Skin: Normal Color Lymphatic: No Adenopathy Results Lab Laboratory Tests 11/09/20 10:56: Glucometer 130H 11/09/20 17:42: Glucometer 107 11/09/20 23:43: Glucometer 119H 11/10/20 05:06: White Blood Count 10.2, Red Blood Count 3.22L, Hemoglobin 8.4L, Hematocrit 26L, Mean Corpuscular Volume 82, Mean Corpuscular Hemoglobin 26, Mean Corpuscular Hemoglobin Concent 32, Red Cell Distribution Width 21.2H, Platelet Count 379, Mean Platelet Volume 10.5, Immature Granulocyte % (Auto) 0, Neutrophils (%) (Auto) 65, Lymphocytes (%) (Auto) 13, Monocytes (%) (Auto) 16H, Eosinophils (%) (Auto) 6, Basophils (%) (Auto) 1, Neutrophils # (Auto) 6.6, Lymphocytes # (Auto) 1.3, Monocytes # (Auto) 1.6H, Eosinophils # (Auto) 0.6H, Basophils # (Auto) 0.1, Immature Granulocyte # (Auto) 0.0, Sodium Level 140, Potassium Level 4.0, Chloride Level 109H, Carbon Dioxide Level 24, Anion Gap 7, Blood Urea Nitrogen 25H, Creatinine 0.86, Estimat Glomerular Filtration Rate > 60, BUN/Creatinine Ratio 29, Glucose Level 137H, Calcium Level 8.0L Microbiology 11/02/20 MRSA Screen - Final, Complete MRSA not isolated Assessment/Plan Assessment/Plan Assess & Plan/Chief Complaint rectal tear and bleeding secondary to trauma. bowel rest. TPN abx. add flagyl patient will need to ambulate more. repeat CT scan stable. start clear liquid diet. add IMMANUEL Mercado MD Nov 10, 2020 10:28
[2020-11-10] MEDS: SUCRALFATE 1 GM (CARAFATE) TAB PO SCH ×3 (11:24→20:35)
[2020-11-10] MEDS: METOCLOPRAMIDE INJ 10 MG/2 ML (REGLAN) IVP SCH ×3 (11:25→20:36)
--- NOTE | 2020-11-10 13:17 | Cardiology Progress Note ---
Cardiology SOAP Progress Note Subjective: No cardiac complaints Objective: I&O/Vital Signs 11/10/20 11/10/20 11/10/20 11/10/20 03:56 07:00 07:39 09:08 Temp 36.8 36.9 36.5 Pulse 83 83 84 87 Resp 16 20 20 B/P (MAP) 119/70 (86) 155/96 (115) 155/98 (117) Pulse Ox 95 97 97 O2 Delivery Room Air Room Air Room Air 11/10/20 11/10/20 11/10/20 09:38 11:10 12:31 Temp 36.8 Pulse 87 83 Resp 18 B/P (MAP) 175/81 (112) Pulse Ox 97 O2 Delivery Room Air Room Air 11/10/20 00:00 Intake Total 920 ml Output Total 650 ml Balance 270 ml Weight (Pounds): 224 Weight (Ounces): 0 Weight (Calculated Kilograms): [id number] Constitutional: AAO x 3, well-developed, well-nourished Respiratory: No accessory muscle use, No respiratory distress; chest expansion is symmetric, chest is bilaterally symmetric Cardiovascular: regular rate-rhythm; No JVD; S1 and S2 Gastrointestional: tender, soft, round; No guarding; audible bowel sounds Extremities: no lower extremity edema bilateral Neurologic/Psychiatric: grossly intact (moves all extremities) Skin: No rash on exposed areas, No ulcerations on exposed areas Results/Procedures: Labs Laboratory Tests 11/09/20 17:42: Glucometer 107 11/09/20 23:43: Glucometer 119H 11/10/20 05:06: White Blood Count 10.2, Red Blood Count 3.22L, Hemoglobin 8.4L, Hematocrit 26L, Mean Corpuscular Volume 82, Mean Corpuscular Hemoglobin 26, Mean Corpuscular Hemoglobin Concent 32, Red Cell Distribution Width 21.2H, Platelet Count 379, Mean Platelet Volume 10.5, Immature Granulocyte % (Auto) 0, Neutrophils (%) (Auto) 65, Lymphocytes (%) (Auto) 13, Monocytes (%) (Auto) 16H, Eosinophils (%) (Auto) 6, Basophils (%) (Auto) 1, Neutrophils # (Auto) 6.6, Lymphocytes # (Auto) 1.3, Monocytes # (Auto) 1.6H, Eosinophils # (Auto) 0.6H, Basophils # (Auto) 0.1, Immature Granulocyte # (Auto) 0.0, Sodium Level 140, Potassium Level 4.0, Chloride Level 109H, Carbon Dioxide Level 24, Anion Gap 7, Blood Urea Nitrogen 25H, Creatinine 0.86, Estimat Glomerular Filtration Rate > 60, BUN/Creatinine Ratio 29, Glucose Level 137H, Calcium Level 8.0L 11/10/20 11:32: Glucometer 127H Microbiology 11/02/20 MRSA Screen - Final, Complete MRSA not isolated A/P: Assessment/Dx: Suspected perforation of the left posterior rectum approximately 9.2 cm from the anal verge, per CT of the abdomen on 11-03-20, associated with GI bleed - management per Dr. Carmine FERRIS, s/p ablation by Dr Rodriguez at [facility] in 2018 or 2019; pt reports to have had recurrence in February 2020 OAC with Eliquis, currently held because of GI bleed Mild CAD consisting of mild to mod dz of the LAD that has been unchanged on card caths of 2014, 2017, and 2018 Echo of 03/31/20: LVEF 55-65%, mod MR, PASP 35-40 mmHg H/O PE and DVT in the past per report Hep C + H/O left-sided colon resection H/O splenectomy Plan: Monitor heart rhythm OAC with Eliquis currently being held d/t bleed as noted above Monitor lab closely Thank you for your consultation. Please call me if you have any questions. Michael Patterson MD, FACP, FACC, FSCAI, FHRS, CCDS Interventional Cardiology Cardiac Electrophysiology Vascular Medicine and Endovascular Interventions Kitty PATTERSON MD Nov 10, 2020 13:16
[2020-11-10] MEDS: LORazepam INJ 2 MG/ML (ATIVAN) VIAL IVP PRN ×2 (15:46→23:40)
[2020-11-10] MEDS: POTASSIUM CHLORIDE IV SCH ×10 (16:09)
[2020-11-10] MEDS: SODIUM ACETATE IV SCH ×10 (16:09)
[2020-11-10] MEDS: [UNRECOGNIZED DRUG - OTHER] IV SCH ×10 (16:09)
[2020-11-10] MEDS: SODIUM PHOSPHATE IV SCH ×10 (16:09)
[2020-11-11 03:55] VITALS: BP 132/79
[2020-11-11] MEDS: SUCRALFATE 1 GM (CARAFATE) TAB PO SCH ×4 (05:39→20:42)
[2020-11-11] MEDS: BENZONATATE 100 MG (TESSALON) CAPSULE PO SCH ×4 (05:39→23:40)
[2020-11-11 05:54] LABS: BASOPHILS # (AUTO) 0.1 10^3/uL (0.0-0.1); BASOPHILS % (AUTO) 1 % (0-10); EOSINOPHILS # (AUTO) 0.6 10^3/uL (0.0-0.3); EOSINOPHILS % (AUTO) 6 % (0-10); HEMATOCRIT 25 % (40-54); HEMOGLOBIN 8.2 g/dL (13.3-17.7); LYMPHOCYTES # (AUTO) 1.4 10^3/uL (1.0-4.0); LYMPHOCYTES % (AUTO) 14 % (12-44); MEAN CORPUSCULAR HEMOGLOBIN 26 pg (25-34); MEAN CORPUSCULAR HGB CONC 32 g/dL (32-36); MEAN CORPUSCULAR VOLUME 81 fL (80-99); MEAN PLATELET VOLUME 10.5 fL (9.0-12.2); MONOCYTES # (AUTO) 1.7 10^3/uL (0.0-1.0); MONOCYTES % (AUTO) 18 % (0-12); NEUTROPHILS # (AUTO) 5.6 10^3/uL (1.8-7.8); NEUTROPHILS % (AUTO) 60 % (42-75); PLATELET COUNT 420 10^3/uL (130-400); WHITE BLOOD COUNT 9.5 10^3/uL (4.3-11.0)
[2020-11-11 06:05] LABS: CHLORIDE 109 MMOL/L (98-107); POTASSIUM 3.9 MMOL/L (3.6-5.0); SODIUM 139 MMOL/L (135-145)
[2020-11-11 06:06] LABS: CALCIUM 7.9 MG/DL (8.5-10.1); GLUCOSE 110 MG/DL (70-105)
[2020-11-11 06:08] LABS: CARBON DIOXIDE 24 MMOL/L (21-32)
[2020-11-11 06:10] LABS: CREATININE SERUM 0.85 MG/DL (0.60-1.30); GFR ESTIMATED > 60
[2020-11-11 06:11] LABS: BUN/CREATININE RATIO 28
[2020-11-11 08:00] VITALS: BP 133/83
[2020-11-11 09:56] LABS: MAGNESIUM 2.2 MG/DL (1.6-2.4)
--- NOTE | 2020-11-11 09:57 | Cardiology Progress Note ---
Subjective Date Seen by Provider: Nov 11, 2020 Time Seen by Provider: 09:56 Subjective/Events-last exam Patient in bed, denies any chest pain or palpitations. Objective-Cardiology Exam Last Set of Vital Signs Vital Signs 11/11/20 08:00 Temp 36.8 Pulse 90 Resp 20 B/P (MAP) 133/83 (100) Pulse Ox 94 O2 Delivery Room Air Capillary Refill : Less Than 3 SecondsLess Than 3 Seconds I&O Intake and Output 11/11/20 00:00 Intake Total 500 ml Output Total 1000 ml Balance -500 ml Intake Oral 400 ml IV Total 100 ml Output Urine Total 1000 ml General: Alert, Oriented X3, Cooperative, No Acute Distress HEENT: Mucous Memb Moist/[place] Lungs: Clear to Auscultation, Normal Air Movement Heart: Regular Rate, No Murmurs Abdomen: Soft, Other (hypoactive bowel sounds, diffuse abdominal ttp greatest at LLQ) Extremities: No Edema, No Tenderness/Swelling Skin: No Rashes, No Breakdown Neuro: Normal Speech, Sensation Intact, Cranial Nerves 3-12 NL Psych/Mental Status: Mental Status NL, Mood NL Results Lab Laboratory Tests 11/11/20 05:40 A/P-Cardiology Admission Diagnosis Perforation of the posterior rectum Paroxysmal atrial fibrillation Coronary artery disease Hepatitis C Assessment/Plan Suspected perforation of the left posterior rectum approximately 9.2 cm from the anal verge, per CT of the abdomen on 11-03-20, associated with GI bleed - management per Dr. Carmine FERRIS, s/p ablation by Dr Rodriguez at [facility] in 2018 or 2019; pt reports to have had recurrence in February 2020, currently in sinus rhythm OAC with Eliquis, currently held because of GI bleed Mild CAD consisting of mild to mod dz of the LAD that has been unchanged on card caths of 2014, 2017, and 2018 Echo of 03/31/20: LVEF 55-65%, mod MR, PASP 35-40 mmHg H/O PE and DVT in the past per report Hep C + H/O left-sided colon resection H/O splenectomy Patient was seen and evaluated with Winsome, examination performed, management plan was discussed, agree with the current scribed note, I made few changes to the note using Italic font Patient was seen at bedside, still having abdominal pain Denied any chest pain Currently off oral anticoagulation which will be restarted once clinically stable. Continue to monitor SINGH-SHILPI,WINSOME K PA Nov 11, 2020 9:57 am GILES CHRISTIANSON MD Nov 11, 2020 10:55 am
[2020-11-11] MEDS: PANTOPRAZOLE 40 MG (PROTONIX) VIAL IV SCH ×2 (11:04→20:43)
[2020-11-11] MEDS: METOCLOPRAMIDE INJ 10 MG/2 ML (REGLAN) IVP SCH ×4 (11:04→20:43)
--- NOTE | 2020-11-11 11:37 | Progress Note - Hospitalist ---
KAITY LOPEZ,[facility] 11/11/20 1137: Subjective HPI/CC On Admission Date Seen by Provider: Nov 11, 2020 Time Seen by Provider: 10:15 The patient is a 59-year-old male who is a poor historian. He presented with pain more in the left lower abdominal quadrant. He has a longstanding history of constipation and in the Emergency Department, underwent a digital rectal examination where there was a bolus of stool; however, after this, there was a significant amount of red blood per rectum. The patient is on apixaban for atrial fibrillation. He also did have what appears to be a left sided colon resection from what appears to be a previous history of a complicated diverticulosis. A CT scan was performed, which did show a colonic staple line along the left lower abdominal quadrant; however, there also appears to be a presacral hematoma, which may indicate a small perforation as well as bleeding below the peritoneal reflection. He is afebrile and only has a mildly elevated white count of 12.4. He is currently receiving fresh frozen plasma to reverse his anticoagulation. Subjective/Events-last exam He continues to endorse significant abdominal pain w/o passage of BM, though endorses intermittent flatus. He is eating ice chips and drinking water & coffee but states that he vomits each night. Denies SOB, fevers, chills. Endorses CP with deep inspiration that is not reproduced upon examination & cough. Objective Exam Vital Signs Vital Signs Date Time Temp Pulse Resp B/P (MAP) Pulse Ox O2 Delivery O2 Flow Rate FiO2 11/11/20 08:00 36.8 90 20 133/83 (100) 94 Room Air Capillary Refill : Less Than 3 SecondsLess Than 3 Seconds General Appearance: Mild Distress Respiratory: Chest Non Tender, Lungs Clear, Normal Breath Sounds Cardiovascular: Regular Rate, Rhythm, No Edema Gastrointestinal: Normal Bowel Sounds, Tenderness Extremity: Normal Capillary Refill, Non Tender, No Calf Tenderness, No Pedal E gaby Results/Procedures Lab Laboratory Tests 11/11/20 05:40 Patient resulted labs reviewed. Assessment/Plan Assessment and Plan Assess & Plan/Chief Complaint 1. Rectal tear + hemorrhage -General surgery consulted -Bowel rest, TPN, clear fluids -Considering colonoscopy to correlate radiologic findings 2. A-fib -Cardiology following -Holding eliquis 3. Anemia -Monitor with CBCs -Consider iron studies -Transfused pRBCs x3, FFP x3 -Transfuse if Hb < 7.0 4. Cough -Tessalon perles 5. Nausea/Vomiting -Reglan -AUGUSTA Alvarado DO 11/12/20 0536: Subjective Subjective/Events-last exam Pt having a lot of pain Hgb 8.2 Bowel rest with TPN maintained AF managed by cardiology Holding anticoagulation due to rectal bleeding Review of Systems General: Fatigue Gastrointestinal: Abdominal Pain Objective Exam General Appearance: No Apparent Distress, WD/WN Respiratory: Lungs Clear Cardiovascular: Irregularly Irregular Assessment/Plan Assessment and Plan Assess & Plan/Chief Complaint Assessment: Rectal perforation Anemia AF Plan: Supportive care TPN Supervisory-Addendum Brief Verification & Attestation Participated in pt care: history, MDM, physical Personally performed: exam, history, MDM, supervision of care Care discussed with: Medical Student Procedures: n/a Results interpretation: Verified all documentation Verification and Attestation of Medical Student E/M Service A medical student performed and documented this service in my presence. I reviewed and verified all information documented by the medical student and made modifications to such information, when appropriate. I personally performed the physical exam and medical decision making. Augusta Mays, Nov 12, 2020,05:35 KAITY LOPEZ,MED STUDEN Nov 11, 2020 11:37 AUGUSTA MAYS DO Nov 12, 2020 05:36
[2020-11-11 12:00] VITALS: BP 132/76
[2020-11-11] MEDS: 1/2 NS IV SOLUTION 1,000 ML IV SCH ×2 (12:54→23:45)
[2020-11-11] MEDS: HYDROmorphone 2 MG/ML VIAL (DILAUDID) IV PRN (15:11)
[2020-11-11 16:00] VITALS: BP 156/75
[2020-11-11] MEDS: [UNRECOGNIZED DRUG - OTHER] IV SCH ×20 (16:50→17:10)
[2020-11-11] MEDS: SODIUM PHOSPHATE IV SCH ×20 (16:50→17:10)
[2020-11-11] MEDS: SODIUM ACETATE IV SCH ×20 (16:50→17:10)
[2020-11-11] MEDS: POTASSIUM CHLORIDE IV SCH ×20 (16:50→17:10)
--- NOTE | 2020-11-11 17:59 | Progress Note ---
Subjective Date Seen by a Provider: Nov 11, 2020 Time Seen by a Provider: 17:30 Subjective/Events-last exam doing better. tolerating clears but just doesnt like it. passing flatus. no fever/chills. pain controlled. Objective Exam Vital Signs Date Time Temp Pulse Resp B/P (MAP) Pulse Ox O2 Delivery O2 Flow Rate FiO2 11/11/20 16:00 36.8 87 18 156/75 (102) 95 Room Air 11/11/20 12:41 85 11/11/20 12:00 36.6 94 20 132/76 (94) 96 Room Air 11/11/20 09:00 96 Room Air 11/11/20 08:00 36.8 90 20 133/83 (100) 94 Room Air 11/11/20 06:40 100 11/11/20 03:55 36.8 88 18 132/79 (96) 96 Room Air 11/11/20 01:00 94 11/10/20 23:40 37.0 94 18 141/90 (107) 96 Room Air 11/10/20 23:07 96 Room Air 11/10/20 20:48 Room Air 11/10/20 20:06 36.8 87 20 110/64 (79) 96 Room Air 11/10/20 19:00 86 11/10/20 18:28 87 117/76 (90) I & O 11/11/20 07:00 Intake Total 550 ml Output Total 1000 ml Balance -450 ml Capillary Refill : Less Than 3 SecondsLess Than 3 Seconds General Appearance: No Apparent Distress HEENT: PERRL/EOMI Neck: Full Range of Motion Respiratory: Chest Non Tender, Rhonci Cardiovascular: Regular Rate, Rhythm Gastrointestinal: normal bowel sounds, non tender, soft Extremity: Normal Capillary Refill Neurologic/Psychiatric: Alert, Oriented x3 Skin: Normal Color Lymphatic: No Adenopathy Results Lab Laboratory Tests 11/10/20 18:13: Glucometer 137H 11/10/20 23:57: Glucometer 121H 11/11/20 05:40: White Blood Count 9.5, Red Blood Count 3.14L, Hemoglobin 8.2L, Hematocrit 25L, Mean Corpuscular Volume 81, Mean Corpuscular Hemoglobin 26, Mean Corpuscular Hemoglobin Concent 32, Red Cell Distribution Width 21.3H, Platelet Count 420H, Mean Platelet Volume 10.5, Immature Granulocyte % (Auto) 0, Neutrophils (%) (Auto) 60, Lymphocytes (%) (Auto) 14, Monocytes (%) (Auto) 18H, Eosinophils (%) (Auto) 6, Basophils (%) (Auto) 1, Neutrophils # (Auto) 5.6, Lymphocytes # (Auto) 1.4, Monocytes # (Auto) 1.7H, Eosinophils # (Auto) 0.6H, Basophils # (Auto) 0.1, Immature Granulocyte # (Auto) 0.0, Sodium Level 139, Potassium Level 3.9, Chloride Level 109H, Carbon Dioxide Level 24, Anion Gap 6, Blood Urea Nitrogen 24H, Creatinine 0.85, Estimat Glomerular Filtration Rate > 60, BUN/Creatinine Ratio 28, Glucose Level 110H, Calcium Level 7.9L, Phosphorus Level 3.0, Magnesium Level 2.2 11/11/20 12:43: Glucometer 134H 11/11/20 13:25: Lab Scanned Report Transfusion Reaction Form 11/11/20 17:19: Glucometer 90 Microbiology 11/02/20 MRSA Screen - Final, Complete MRSA not isolated Assessment/Plan Assessment/Plan Assess & Plan/Chief Complaint rectal tear and bleeding secondary to trauma. bowel rest. TPN abx. add flagyl patient will need to ambulate more. add reglan. advance to dys 3 diet. IMMANUEL FRANCO MD Nov 11, 2020 17:59
[2020-11-11 20:00] VITALS: BP 165/85
[2020-11-11 23:37] VITALS: BP 151/103
[2020-11-11] MEDS: LORazepam INJ 2 MG/ML (ATIVAN) VIAL IVP PRN (23:40)
[2020-11-12 03:25] VITALS: BP 120/74
[2020-11-12] MEDS: SUCRALFATE 1 GM (CARAFATE) TAB PO SCH ×4 (05:13→21:16)
[2020-11-12] MEDS: BENZONATATE 100 MG (TESSALON) CAPSULE PO SCH ×4 (05:14→23:29)
[2020-11-12 05:19] LABS: BASOPHILS # (AUTO) 0.1 10^3/uL (0.0-0.1); BASOPHILS % (AUTO) 1 % (0-10); EOSINOPHILS # (AUTO) 0.5 10^3/uL (0.0-0.3); EOSINOPHILS % (AUTO) 5 % (0-10); HEMATOCRIT 25 % (40-54); HEMOGLOBIN 8.1 g/dL (13.3-17.7); LYMPHOCYTES # (AUTO) 0.8 10^3/uL (1.0-4.0); LYMPHOCYTES % (AUTO) 8 % (12-44); MEAN CORPUSCULAR HEMOGLOBIN 26 pg (25-34); MEAN CORPUSCULAR HGB CONC 32 g/dL (32-36); MEAN CORPUSCULAR VOLUME 81 fL (80-99); MEAN PLATELET VOLUME 10.4 fL (9.0-12.2); MONOCYTES # (AUTO) 1.9 10^3/uL (0.0-1.0); MONOCYTES % (AUTO) 20 % (0-12); NEUTROPHILS # (AUTO) 6.3 10^3/uL (1.8-7.8); NEUTROPHILS % (AUTO) 66 % (42-75); PLATELET COUNT 421 10^3/uL (130-400); WHITE BLOOD COUNT 9.7 10^3/uL (4.3-11.0)
[2020-11-12 05:28] LABS: CHLORIDE 109 MMOL/L (98-107); POTASSIUM 4.2 MMOL/L (3.6-5.0); SODIUM 139 MMOL/L (135-145)
[2020-11-12 05:29] LABS: CALCIUM 7.9 MG/DL (8.5-10.1); GLUCOSE 110 MG/DL (70-105)
[2020-11-12 05:31] LABS: CARBON DIOXIDE 24 MMOL/L (21-32)
[2020-11-12 05:33] LABS: CREATININE SERUM 0.82 MG/DL (0.60-1.30); GFR ESTIMATED > 60
[2020-11-12 05:34] LABS: BUN/CREATININE RATIO 27
[2020-11-12 06:09] LABS: ACANTHOCYTES MODERATE; EOSINOPHILS % (MANUAL) 3 %; LYMPHOCYTES % (MANUAL) 12 %; MONOCYTES % (MANUAL) 16 %; NEUTROPHILS % (MANUAL) 69 %
[2020-11-12 08:00] VITALS: BP 152/84
[2020-11-12] MEDS: METOCLOPRAMIDE INJ 10 MG/2 ML (REGLAN) IVP SCH ×4 (09:03→21:16)
[2020-11-12] MEDS: meTOprolol TARTRATE 25 MG (LOPRESSOR) TABLET PO SCH ×2 (09:03→21:17)
[2020-11-12] MEDS: PANTOPRAZOLE 40 MG (PROTONIX) VIAL IV SCH ×2 (09:04→21:16)
--- NOTE | 2020-11-12 09:06 | Cardiology Progress Note ---
Subjective Date Seen by Provider: Nov 12, 2020 Time Seen by Provider: 08:10 Subjective/Events-last exam Patient in bed, c/o occasional palpitations, c/o abd pain after eating. Objective-Cardiology Exam Last Set of Vital Signs Vital Signs 11/12/20 11/12/20 11/12/20 08:00 09:00 12:34 Temp 37.0 Pulse 81 Resp 20 B/P (MAP) 152/84 (106) Pulse Ox 95 O2 Delivery Room Air Capillary Refill : Less Than 3 SecondsLess Than 3 Seconds I&O Intake and Output 11/12/20 00:00 Intake Total 750 ml Output Total 1150 ml Balance -400 ml Intake Oral 750 ml Output Urine Total 1150 ml General: Alert, Oriented X3, Cooperative, No Acute Distress HEENT: Mucous Memb Moist/[place] Lungs: Clear to Auscultation, Normal Air Movement Heart: Regular Rate, No Murmurs Abdomen: Soft, Other (hypoactive bowel sounds, diffuse abdominal ttp greatest at LLQ) Extremities: No Edema, No Tenderness/Swelling Skin: No Rashes, No Breakdown Neuro: Normal Speech, Sensation Intact, Cranial Nerves 3-12 NL Psych/Mental Status: Mental Status NL, Mood NL Results Lab Laboratory Tests 11/12/20 05:11 A/P-Cardiology Admission Diagnosis Perforation of the posterior rectum Paroxysmal atrial fibrillation Coronary artery disease Hepatitis C Assessment/Plan Suspected perforation of the left posterior rectum approximately 9.2 cm from the anal verge, per CT of the abdomen on 11-03-20, associated with GI bleed - management per Dr. Lou PAF, s/p ablation by Dr oRdriguez at [facility] in 2018 or 2019; pt reports to have had recurrence in February 2020, currently in sinus rhythm with occ PAT. I will add Lopressor 12.5mg BID, continue on telemetry. OAC with Eliquis, currently held because of GI bleed Mild CAD consisting of mild to mod dz of the LAD that has been unchanged on card caths of 2014, 2017, and 2018 Echo of 03/31/20: LVEF 55-65%, mod MR, PASP 35-40 mmHg H/O PE and DVT in the past per report Hep C + H/O left-sided colon resection H/O splenectomy Patient was seen and evaluated with Winsome, examination performed, management plan was discussed, agree with the current scribed note, I made few changes to the note using Italic font Patient was seen at bedside, sitting comfortably, still having abdominal pain after eating. No chest pain was reported. Reporting occasional episode of palpitation feeling F7 of tachycardia Telemetry reviewed showed multiple paroxysmal atrial tachycardia episode, regular rhythm, I started him back on Lopressor 12.5 mg twice daily and I will evaluate tolerance and response WINSOME RIVERO Nov 12, 2020 09:06 GILES CHRISTIANSON MD Nov 12, 2020 14:05
--- NOTE | 2020-11-12 11:49 | Progress Note - Hospitalist ---
JESSICAKAITY Feliciano,[facility] 11/12/20 1149: Subjective HPI/CC On Admission Date Seen by Provider: Nov 12, 2020 Time Seen by Provider: 10:45 The patient is a 59-year-old male who is a poor historian. He presented with pain more in the left lower abdominal quadrant. He has a longstanding history of constipation and in the Emergency Department, underwent a digital rectal examination where there was a bolus of stool; however, after this, there was a significant amount of red blood per rectum. The patient is on apixaban for atrial fibrillation. He also did have what appears to be a left sided colon resection from what appears to be a previous history of a complicated diverticulosis. A CT scan was performed, which did show a colonic staple line along the left lower abdominal quadrant; however, there also appears to be a presacral hematoma, which may indicate a small perforation as well as bleeding below the peritoneal reflection. He is afebrile and only has a mildly elevated white count of 12.4. He is currently receiving fresh frozen plasma to reverse his anticoagulation. Subjective/Events-last exam Feels slightly better today. Still no BM/flatus. Stated he would try to eat some eggs. Review of Systems General: No Chills HEENT: No Head Aches Pulmonary: No Dyspnea Cardiovascular: No: Chest Pain Gastrointestinal: Abdominal Pain, Constipation Genitourinary: No Dysuria Objective Exam Vital Signs Vital Signs Date Time Temp Pulse Resp B/P (MAP) Pulse Ox O2 Delivery O2 Flow Rate FiO2 11/12/20 08:00 37.0 89 20 152/84 (106) 95 Room Air Capillary Refill : Less Than 3 SecondsLess Than 3 Seconds General Appearance: No Apparent Distress Respiratory: Chest Non Tender, Lungs Clear, Normal Breath Sounds Cardiovascular: Regular Rate, Rhythm, No Edema Gastrointestinal: Normal Bowel Sounds, Tenderness Results/Procedures Lab Laboratory Tests 11/12/20 05:11 Patient resulted labs reviewed. Assessment/Plan Assessment and Plan Assess & Plan/Chief Complaint 1. Rectal tear + hemorrhage -General surgery consulted -Bowel rest, TPN, clear fluids -Considering colonoscopy to correlate radiologic findings -work with PT/OT 2. A-fib -Cardiology following -Metoprolol -Holding eliquis 3. Anemia -Monitor with CBCs -Consider iron studies -Transfused pRBCs x3, FFP x3 -Transfuse if Hb < 7.0 4. Cough -Tessalon perles 5. Nausea/Vomiting -Reglan -AUGUSTA Alvarado DO 11/13/20 0544: Subjective Subjective/Events-last exam Pt not in a good mood Needs a shower so will have nursing help him do that No bowels moving, no gas Ate a bit better this morning Review of Systems General: Fatigue, Malaise Objective Exam General Appearance: No Apparent Distress, WD/WN Respiratory: Lungs Clear Cardiovascular: Irregularly Irregular Assessment/Plan Assessment and Plan Assess & Plan/Chief Complaint Shower Pain control Supervisory-Addendum Brief Verification & Attestation Participated in pt care: history, MDM, physical Personally performed: exam, history, MDM, supervision of care Care discussed with: Medical Student Procedures: n/a Results interpretation: Verified all documentation Verification and Attestation of Medical Student E/M Service A medical student performed and documented this service in my presence. I reviewed and verified all information documented by the medical student and made modifications to such information, when appropriate. I personally performed the physical exam and medical decision making. Augusta Evans, Nov 13, 2020,05:42 KAITY LOPEZ,MED STUDEN Nov 12, 2020 11:49 AUGUSTA EVANS DO Nov 13, 2020 05:44
[2020-11-12 12:00] VITALS: BP 132/83
--- NOTE | 2020-11-12 14:20 | Progress Note ---
Subjective Date Seen by a Provider: Nov 12, 2020 Time Seen by a Provider: 14:00 Subjective/Events-last exam states still no BM. no fever/chills. wbc normal. Objective Exam Vital Signs Date Time Temp Pulse Resp B/P (MAP) Pulse Ox O2 Delivery O2 Flow Rate FiO2 11/12/20 12:34 81 11/12/20 09:00 95 Room Air 11/12/20 08:00 37.0 89 20 152/84 (106) 95 Room Air 11/12/20 06:38 95 11/12/20 03:25 97 16 120/74 (89) 93 Room Air 11/12/20 01:00 93 11/11/20 23:37 96 18 151/103 (119) 97 Room Air 11/11/20 21:00 Room Air 11/11/20 20:00 37.0 100 18 165/85 (111) 96 Room Air 11/11/20 19:00 99 11/11/20 16:00 36.8 87 18 156/75 (102) 95 Room Air I & O 11/12/20 07:00 Intake Total 800 ml Output Total 1000 ml Balance -200 ml Capillary Refill : Less Than 3 SecondsLess Than 3 Seconds General Appearance: No Apparent Distress HEENT: PERRL/EOMI Neck: Full Range of Motion Respiratory: Chest Non Tender, Rhonci Cardiovascular: Regular Rate, Rhythm Gastrointestinal: normal bowel sounds, soft, distended Extremity: Normal Capillary Refill Neurologic/Psychiatric: Alert, Oriented x3 Skin: Normal Color Lymphatic: No Adenopathy Results Lab Laboratory Tests 11/11/20 17:19: Glucometer 90 11/11/20 23:37: Glucometer 115H 11/12/20 05:11: White Blood Count 9.7, Red Blood Count 3.09L, Hemoglobin 8.1L, Hematocrit 25L, Mean Corpuscular Volume 81, Mean Corpuscular Hemoglobin 26, Mean Corpuscular Hemoglobin Concent 32, Red Cell Distribution Width 21.1H, Platelet Count 421H, Mean Platelet Volume 10.4, Immature Granulocyte % (Auto) 0, Neutrophils (%) (Auto) 66, Lymphocytes (%) (Auto) 8L, Monocytes (%) (Auto) 20H, Eosinophils (%) (Auto) 5, Basophils (%) (Auto) 1, Neutrophils # (Auto) 6.3, Lymphocytes # (Auto) 0.8L, Monocytes # (Auto) 1.9H, Eosinophils # (Auto) 0.5H, Basophils # (Auto) 0.1, Immature Granulocyte # (Auto) 0.0, Neutrophils % (Manual) 69, Lymphocytes % (Manual) 12, Monocytes % (Manual) 16, Eosinophils % (Manual) 3, Acanthocytes MODERATE, Sodium Level 139, Potassium Level 4.2, Chloride Level 109H, Carbon Dioxide Level 24, Anion Gap 6, Blood Urea Nitrogen 22H, Creatinine 0.82, Estimat Glomerular Filtration Rate > 60, BUN/Creatinine Ratio 27, Glucose Level 110H, Calcium Level 7.9L Microbiology 11/02/20 MRSA Screen - Final, Complete MRSA not isolated Assessment/Plan Assessment/Plan Assess & Plan/Chief Complaint rectal tear and bleeding secondary to trauma. bowel rest. TPN abx. add flagyl patient will need to ambulate more. increase reglan and add small amount miralax advance to dys 3 diet. IMMANUEL FRANCO MD Nov 12, 2020 14:20
[2020-11-12] MEDS: POTASSIUM CHLORIDE IV SCH ×10 (15:10)
[2020-11-12] MEDS: [UNRECOGNIZED DRUG - OTHER] IV SCH ×10 (15:10)
[2020-11-12] MEDS: SODIUM ACETATE IV SCH ×10 (15:10)
[2020-11-12] MEDS: SODIUM PHOSPHATE IV SCH ×10 (15:10)
[2020-11-12 16:00] VITALS: BP 102/65
[2020-11-12] MEDS: 1/2 NS IV SOLUTION 1,000 ML IV SCH (18:49)
[2020-11-12 20:00] VITALS: BP 136/87
[2020-11-12] MEDS: polyethylene glycoL POWDER 17 GM (MIRALAX) PACK PO SCH (21:22)
[2020-11-12] MEDS: HYDROmorphone 2 MG/ML VIAL (DILAUDID) IV PRN (23:27)
[2020-11-12 23:46] VITALS: BP 134/84
[2020-11-13 03:44] VITALS: BP 122/72
[2020-11-13] MEDS: LEVOTHYROXINE 75 MCG (LEVOTHROID) TABLET PO SCH (05:32)
[2020-11-13] MEDS: SUCRALFATE 1 GM (CARAFATE) TAB PO SCH ×4 (05:32→20:22)
[2020-11-13] MEDS: BENZONATATE 100 MG (TESSALON) CAPSULE PO SCH ×4 (05:33→23:58)
[2020-11-13 05:53] LABS: BASOPHILS # (AUTO) 0.1 10^3/uL (0.0-0.1); BASOPHILS % (AUTO) 1 % (0-10); EOSINOPHILS # (AUTO) 0.5 10^3/uL (0.0-0.3); EOSINOPHILS % (AUTO) 5 % (0-10); HEMATOCRIT 26 % (40-54); HEMOGLOBIN 8.4 g/dL (13.3-17.7); LYMPHOCYTES % (AUTO) 11 % (12-44); MEAN CORPUSCULAR HEMOGLOBIN 26 pg (25-34); MEAN CORPUSCULAR HGB CONC 32 g/dL (32-36); MEAN CORPUSCULAR VOLUME 81 fL (80-99); MEAN PLATELET VOLUME 10.6 fL (9.0-12.2); MONOCYTES # (AUTO) 1.7 10^3/uL (0.0-1.0); MONOCYTES % (AUTO) 18 % (0-12); NEUTROPHILS # (AUTO) 6.1 10^3/uL (1.8-7.8); NEUTROPHILS % (AUTO) 65 % (42-75); PLATELET COUNT 445 10^3/uL (130-400); WHITE BLOOD COUNT 9.3 10^3/uL (4.3-11.0)
[2020-11-13 05:55] LABS: ALBUMIN 3.2 GM/DL (3.2-4.5); CHLORIDE 108 MMOL/L (98-107); POTASSIUM 4.1 MMOL/L (3.6-5.0); SODIUM 138 MMOL/L (135-145)
[2020-11-13 05:56] LABS: CALCIUM 7.9 MG/DL (8.5-10.1)
[2020-11-13 05:58] LABS: GLUCOSE 113 MG/DL (70-105); TOTAL PROTEIN 5.7 GM/DL (6.4-8.2)
[2020-11-13 05:59] LABS: CARBON DIOXIDE 24 MMOL/L (21-32)
[2020-11-13 06:00] LABS: BILIRUBIN,TOTAL 1.1 MG/DL (0.1-1.0)
[2020-11-13 06:01] LABS: ALKALINE PHOSPHATASE 110 U/L (40-136); CREATININE SERUM 0.86 MG/DL (0.60-1.30); GFR ESTIMATED > 60
[2020-11-13 06:02] LABS: BUN/CREATININE RATIO 29
[2020-11-13 06:04] LABS: ALANINE AMINOTRANSFERASE 22 U/L (0-55)
[2020-11-13 08:00] VITALS: BP 140/90
[2020-11-13] MEDS: METOCLOPRAMIDE INJ 10 MG/2 ML (REGLAN) IVP SCH ×4 (08:35→20:21)
[2020-11-13] MEDS: PANTOPRAZOLE 40 MG (PROTONIX) VIAL IV SCH ×2 (08:35→20:19)
[2020-11-13] MEDS: meTOprolol TARTRATE 25 MG (LOPRESSOR) TABLET PO SCH ×2 (08:35→20:22)
[2020-11-13] MEDS: HYDROmorphone 2 MG/ML VIAL (DILAUDID) IV PRN ×2 (10:15→15:54)
--- NOTE | 2020-11-13 11:09 | Progress Note - Hospitalist ---
Subjective HPI/CC On Admission Date Seen by Provider: Nov 13, 2020 Time Seen by Provider: 10:45 The patient is a 59-year-old male who is a poor historian. He presented with pain more in the left lower abdominal quadrant. He has a longstanding history of constipation and in the Emergency Department, underwent a digital rectal examination where there was a bolus of stool; however, after this, there was a significant amount of red blood per rectum. The patient is on apixaban for atrial fibrillation. He also did have what appears to be a left sided colon resection from what appears to be a previous history of a complicated diverticulosis. A CT scan was performed, which did show a colonic staple line along the left lower abdominal quadrant; however, there also appears to be a presacral hematoma, which may indicate a small perforation as well as bleeding below the peritoneal reflection. He is afebrile and only has a mildly elevated white count of 12.4. He is currently receiving fresh frozen plasma to reverse his anticoagulation. Subjective/Events-last exam Pt in a little better mood No bowels moving yet Will initiate CT scan with rectal contrast to see if we can initiate a BM while checking to see if the perforation has been repaired and remains intact Review of Systems General: Fatigue Objective Exam Vital Signs Vital Signs Date Time Temp Pulse Resp B/P (MAP) Pulse Ox O2 Delivery O2 Flow Rate FiO2 11/14/20 04:00 36.5 82 18 121/77 (92) 97 Room Air Capillary Refill : Less Than 3 SecondsLess Than 3 Seconds General Appearance: No Apparent Distress, WD/WN, Chronically ill Respiratory: Lungs Clear Cardiovascular: Regular Rate, Rhythm Neurologic/Psychiatric: Alert, Oriented x3, No Motor/Sensory Deficits, Depressed Affect Results/Procedures Lab Laboratory Tests 11/13/20 05:35 Patient resulted labs reviewed. Assessment/Plan Assessment and Plan Assess & Plan/Chief Complaint Assessment: Rectal perforation Ileus AF Mental illness Plan: Supportive care TPN CT with rectal contrast JUAN MANUEL EVANS DO Nov 13, 2020 11:09
[2020-11-13] MEDS ORDERED: IOHEXOL 350 MG/ML 100 ML (OMNIPAQUE 350) VIAL IV ONE (11:15)
[2020-11-13] MEDS ORDERED: HOLD METFORMIN - RECEIVED CONTRAST 20 ML VIAL IV SCH (11:15)
[2020-11-13] MEDS ORDERED: NS 100 ML (IVPB) BAG IV ONE (11:15)
[2020-11-13 12:00] VITALS: BP 138/89
--- NOTE | 2020-11-13 12:11 | Cardiology Progress Note ---
Subjective Date Seen by Provider: Nov 13, 2020 Time Seen by Provider: 08:20 Subjective/Events-last exam Patient is sitting up in bed, continues to complain of abdominal discomfort. Denies any chest pain Objective-Cardiology Exam Last Set of Vital Signs Vital Signs 11/13/20 11/13/20 12:00 12:42 Temp 36.2 Pulse 87 Resp 20 B/P (MAP) 138/89 (105) Pulse Ox 93 O2 Delivery Room Air Capillary Refill : Less Than 3 SecondsLess Than 3 Seconds I&O Intake and Output 11/12/20 23:59 Intake Total 750 ml Output Total 925 ml Balance -175 ml Intake Oral 750 ml Output Urine Total 925 ml General: Alert, Oriented X3, Cooperative, No Acute Distress HEENT: Mucous Memb Moist/[place] Lungs: Clear to Auscultation, Normal Air Movement Heart: Regular Rate, No Murmurs Abdomen: Soft, Other (hypoactive bowel sounds, diffuse abdominal ttp greatest at LLQ) Extremities: No Edema, No Tenderness/Swelling Skin: No Rashes, No Breakdown Neuro: Normal Speech, Sensation Intact, Cranial Nerves 3-12 NL Psych/Mental Status: Mental Status NL, Mood NL Results Lab Laboratory Tests 11/13/20 05:35 A/P-Cardiology Admission Diagnosis Perforation of the posterior rectum Paroxysmal atrial fibrillation Coronary artery disease Hepatitis C Assessment/Plan Suspected perforation of the left posterior rectum approximately 9.2 cm from the anal verge, per CT of the abdomen on 11-03-20, associated with GI bleed - management per Dr. Carmine FERRIS, s/p ablation by Dr Rodriguez at [facility] in 2018 or 2019; pt reports to have had recurrence in February 2020, currently in sinus rhythm with occ PAT. Started on Lopressor 12.5mg BID, continue on telemetry. OAC with Eliquis, currently held because of GI bleed Mild CAD consisting of mild to mod dz of the LAD that has been unchanged on card caths of 2014, 2017, and 2018 Echo of 03/31/20: LVEF 55-65%, mod MR, PASP 35-40 mmHg H/O PE and DVT in the past per report Hep C + H/O left-sided colon resection H/O splenectomy Patient was seen and evaluated with Dangelo, examination performed, management plan was discussed, agree with the current scribed note, I made few changes to the note using Italic font Patient is feeling slightly better, reporting upper epigastric reproducible pain No further episode of atrial tachycardia, continue to monitor telemetry Management per General Surgeon and primary physician DANGELO RIVERO Nov 13, 2020 12:11 pm GILES CHRISTIANSON MD Nov 13, 2020 2:52 pm
--- NOTE | 2020-11-13 13:03 | Diagnostic Imaging Report ---
EXAMINATION: CT Abdomen Pelvis with and without intravenous contrast. TECHNIQUE: Precontrast acquisitions were acquired through the abdomen and pelvis. Multiple contiguous axial images were obtained through the abdomen and pelvis after the administration of intravenous contrast. All CT scans use one or more of the following dose optimizing techniques: automated exposure control, MA and/or KvP adjustment based on a patient size and exam type, or iterative reconstruction. HISTORY: Presacral hematoma. COMPARISON: 11/05/2020. FINDINGS: Limited views of the lower thorax show moderate bilateral pleural effusions. Bibasilar atelectasis. The liver is normal without focal lesion. There is no biliary ductal dilation. Gallbladder is distended and the wall appears slightly irregular. Pancreas is normal. Spleen is absent. Adrenal glands are normal. The kidneys are normal. There is no hydronephrosis. Urinary bladder is normal. There has been a prior sigmoid colon resection. There is a mass associated with the distal rectum measuring at least 2.0 x 3.1 cm (series 3, image 37). There is mucosal irregularity with heaped-up margins. There is high attenuating material either representing scattered mass or hemorrhage extending into the mesorectal fat. No extravasation of contrast is seen. There is a small amount of fluid layering in the pelvis. There is a small amount of free abdominal fluid. There is no free air. There is diffuse body wall edema. No abdominal or pelvic lymphadenopathy. Aorta is normal in caliber without aneurysm. There are no suspicious osseous lesions. IMPRESSION: 1. The rectal abnormality clearly appears to be a mass on this exam with thinner slices with focal irregularity of the mucosa with heaped-up margins and soft tissue extending beyond the margin of the rectum. The high attenuation associated with this masslike area may represent associated hemorrhage or further extension of the mass which extends into the mesorectal fascia. Direct visualization is recommended. Dictated by: Dictated on workstation # [id number]
--- NOTE | 2020-11-13 15:02 | Progress Note ---
Subjective Date Seen by a Provider: Nov 13, 2020 Time Seen by a Provider: 10:00 Subjective/Events-last exam doing ok. passing flatus but no BM. has some abd distention. minimal pain. Objective Exam Vital Signs Date Time Temp Pulse Resp B/P (MAP) Pulse Ox O2 Delivery O2 Flow Rate FiO2 11/13/20 12:42 87 11/13/20 12:00 36.2 90 20 138/89 (105) 93 Room Air 11/13/20 09:37 93 Room Air 11/13/20 08:00 36.8 90 18 140/90 (107) 93 Room Air 11/13/20 06:35 81 11/13/20 03:44 36.6 90 22 122/72 (89) 96 Room Air 11/13/20 01:00 87 11/12/20 23:46 36.8 99 22 134/84 (101) 95 Room Air 11/12/20 21:00 Room Air 11/12/20 20:00 36.6 87 16 136/87 (103) 97 11/12/20 19:00 82 11/12/20 16:00 36.6 80 18 102/65 (77) 96 I & O 11/13/20 06:59 Intake Total 1225 ml Output Total 1250 ml Balance -25 ml Capillary Refill : Less Than 3 SecondsLess Than 3 Seconds General Appearance: No Apparent Distress HEENT: PERRL/EOMI Neck: Full Range of Motion Respiratory: Chest Non Tender, Rhonci Cardiovascular: Regular Rate, Rhythm Gastrointestinal: normal bowel sounds, soft, distended Extremity: Normal Capillary Refill Neurologic/Psychiatric: Alert, Oriented x3 Skin: Normal Color Lymphatic: No Adenopathy Results Lab Laboratory Tests 11/12/20 17:36: Glucometer 114H 11/13/20 00:59: Glucometer 135H 11/13/20 05:30: Glucometer 119H 11/13/20 05:35: White Blood Count 9.3, Red Blood Count 3.21L, Hemoglobin 8.4L, Hematocrit 26L, Mean Corpuscular Volume 81, Mean Corpuscular Hemoglobin 26, Mean Corpuscular Hemoglobin Concent 32, Red Cell Distribution Width 21.1H, Platelet Count 445H, Mean Platelet Volume 10.6, Immature Granulocyte % (Auto) 0, Neutrophils (%) (Auto) 65, Lymphocytes (%) (Auto) 11L, Monocytes (%) (Auto) 18H, Eosinophils (%) (Auto) 5, Basophils (%) (Auto) 1, Neutrophils # (Auto) 6.1, Lymphocytes # (Auto) 1.0, Monocytes # (Auto) 1.7H, Eosinophils # (Auto) 0.5H, Basophils # (Auto) 0.1, Immature Granulocyte # (Auto) 0.0, Sodium Level 138, Potassium Level 4.1, Chloride Level 108H, Carbon Dioxide Level 24, Anion Gap 6, Blood Urea Nitrogen 25H, Creatinine 0.86, Estimat Glomerular Filtration Rate > 60, BUN/Creatinine Ratio 29, Glucose Level 113H, Calcium Level 7.9L, Corrected Calcium 8.5, Total Bilirubin 1.1H, Aspartate Amino Transf (AST/SGOT) 25, Alanine Aminotransferase (ALT/SGPT) 22, Alkaline Phosphatase 110, Total Protein 5.7L, Albumin 3.2 11/13/20 11:00: Glucometer 128H Microbiology 11/02/20 MRSA Screen - Final, Complete MRSA not isolated Assessment/Plan Assessment/Plan Assess & Plan/Chief Complaint rectal tear and bleeding secondary to trauma. bowel rest. TPN abx. add flagyl patient will need to ambulate more. increase reglan and add small amount miralax advance to dys [address] abd and pelvis with rectal contrast. will need OP colonoscopy. IMMANUEL FRANCO MD Nov 13, 2020 15:02
--- NOTE | 2020-11-13 15:14 | Discharge Inst-Surgical ---
D/C Lap Instructions-JOAN Follow Up Appt in 2 weeks Activity as tolerated mechanically altered dys 3 diet with colace 200mg BID scheduled Symptoms to Report: Fever over 101 degree F, Nausea/Vomiting Infection Signs and Symptoms to report: Increased redness, Foul odor of wound, Increased drainage Bathing instructions: May shower Operative Area Clean/Dry; Keep incision clean/dry If any problems/questions: Contact your physician or go to Emergency Room IMMANUEL FRANCO MD Nov 13, 2020 15:13
[2020-11-13 16:16] VITALS: BP 182/104
[2020-11-13] MEDS: SODIUM PHOSPHATE IV SCH ×10 (17:57)
[2020-11-13] MEDS: POTASSIUM CHLORIDE IV SCH ×10 (17:57)
[2020-11-13] MEDS: [UNRECOGNIZED DRUG - OTHER] IV SCH ×10 (17:57)
[2020-11-13] MEDS: SODIUM ACETATE IV SCH ×10 (17:57)
[2020-11-13 19:57] VITALS: BP 124/68
[2020-11-13] MEDS: polyethylene glycoL POWDER 17 GM (MIRALAX) PACK PO SCH (20:22)
[2020-11-14 00:02] VITALS: BP 131/85
[2020-11-14] MEDS: 1/2 NS IV SOLUTION 1,000 ML IV SCH ×2 (01:12→13:04)
[2020-11-14 04:00] VITALS: BP 121/77
[2020-11-14 05:13] LABS: BASOPHILS # (AUTO) 0.1 10^3/uL (0.0-0.1); BASOPHILS % (AUTO) 1 % (0-10); EOSINOPHILS # (AUTO) 0.2 10^3/uL (0.0-0.3); EOSINOPHILS % (AUTO) 2 % (0-10); HEMATOCRIT 26 % (40-54); HEMOGLOBIN 8.3 g/dL (13.3-17.7); LYMPHOCYTES # (AUTO) 0.9 10^3/uL (1.0-4.0); LYMPHOCYTES % (AUTO) 9 % (12-44); MEAN CORPUSCULAR HEMOGLOBIN 26 pg (25-34); MEAN CORPUSCULAR HGB CONC 32 g/dL (32-36); MEAN CORPUSCULAR VOLUME 81 fL (80-99); MEAN PLATELET VOLUME 10.7 fL (9.0-12.2); MONOCYTES # (AUTO) 1.7 10^3/uL (0.0-1.0); MONOCYTES % (AUTO) 16 % (0-12); NEUTROPHILS # (AUTO) 7.7 10^3/uL (1.8-7.8); NEUTROPHILS % (AUTO) 72 % (42-75); PLATELET COUNT 463 10^3/uL (130-400); WHITE BLOOD COUNT 10.7 10^3/uL (4.3-11.0)
[2020-11-14 05:33] LABS: ALBUMIN 3.2 GM/DL (3.2-4.5)
[2020-11-14 05:34] LABS: CHLORIDE 108 MMOL/L (98-107); POTASSIUM 4.4 MMOL/L (3.6-5.0); SODIUM 138 MMOL/L (135-145)
[2020-11-14 05:35] LABS: CALCIUM 8.5 MG/DL (8.5-10.1)
[2020-11-14 05:36] LABS: GLUCOSE 109 MG/DL (70-105); TOTAL PROTEIN 5.6 GM/DL (6.4-8.2)
[2020-11-14 05:37] LABS: CARBON DIOXIDE 24 MMOL/L (21-32)
[2020-11-14 05:39] LABS: ALKALINE PHOSPHATASE 114 U/L (40-136)
[2020-11-14 05:40] LABS: CREATININE SERUM 0.83 MG/DL (0.60-1.30); GFR ESTIMATED > 60
[2020-11-14 05:41] LABS: BUN/CREATININE RATIO 27
[2020-11-14 05:43] LABS: ALANINE AMINOTRANSFERASE 27 U/L (0-55)
[2020-11-14] MEDS: BENZONATATE 100 MG (TESSALON) CAPSULE PO SCH ×4 (06:12→23:55)
[2020-11-14] MEDS: LEVOTHYROXINE 75 MCG (LEVOTHROID) TABLET PO SCH (06:12)
[2020-11-14] MEDS: SUCRALFATE 1 GM (CARAFATE) TAB PO SCH ×4 (06:12→20:01)
--- NOTE | 2020-11-14 07:19 | Progress Note - Surgery ---
GEOVANNA NINO,MED STUDENT 11/14/20 0719: Subjective Date Seen by a Provider: Nov 14, 2020 Time Seen by a Provider: 06:20 Subjective/Events-last exam Pt seen and examined this morning. Reports mild abd pain in LLQ and epigastric areas. Notes that he has had increased scrotal swelling as well. Is trying to ambulate more. Reports small BMs with blood yesterday Review of Systems General: No Chills, No Fatigue HEENT: No Head Aches Pulmonary: Dyspnea (with exertion); No Cough Cardiovascular: Edema; No: Chest Pain Gastrointestinal: Abdominal Pain (LLQ ad epigastric), Hematochezia; No: Nausea, Vomiting Genitourinary: No Dysuria, No Hematuria Objective Exam Vital Signs Date Time Temp Pulse Resp B/P (MAP) Pulse Ox O2 Delivery O2 Flow Rate FiO2 11/14/20 04:00 36.5 82 18 121/77 (92) 97 Room Air 11/14/20 01:00 90 11/14/20 00:02 36.2 91 18 131/85 (100) 97 Room Air 11/13/20 23:50 92 Room Air 11/13/20 21:00 92 Room Air 11/13/20 19:57 36.4 89 18 124/68 (86) 96 Room Air 11/13/20 19:00 89 11/13/20 16:16 36.2 93 20 182/104 (130) 97 Room Air 11/13/20 12:42 87 11/13/20 12:00 36.2 90 20 138/89 (105) 93 Room Air 11/13/20 09:37 93 Room Air 11/13/20 08:00 36.8 90 18 140/90 (107) 93 Room Air I & O 11/14/20 07:00 Intake Total 2080 ml Output Total 925 ml Balance 1155 ml Capillary Refill : Less Than 3 SecondsLess Than 3 Seconds General Appearance: No Apparent Distress, WD/WN HEENT: PERRL/EOMI Neck: Full Range of Motion Respiratory: Lungs Clear, No Accessory Muscle Use, No Respiratory Distress Cardiovascular: Regular Rate, Rhythm, No Murmur Peripheral Pulses: 1+ Dorsalis Pedis (R); 2+ Dorsalis Pedis (R); 1+ Left Dors- Pedis (L); 2+ Left Dors-Pedis (L), 2+ Radial Pulses (R), 2+ Radial Pulses (L) Gastrointestinal: abnormal bowel sounds (decreased), distended (firm); No guarding; tenderness (worse in epigastric area) Extremity: Normal Capillary Refill, Calf Tenderness (anterior calfs with palpation), Pedal Edema Neurologic/Psychiatric: Alert, Oriented x3, No Motor/Sensory Deficits, Depressed Affect Skin: Normal Color, Warm/Dry Results Lab Laboratory Tests 11/13/20 11:00: Glucometer 128H 11/13/20 17:50: Glucometer 95 11/14/20 00:08: Glucometer 108 11/14/20 05:00: White Blood Count 10.7, Red Blood Count 3.25L, Hemoglobin 8.3L, Hematocrit 26L, Mean Corpuscular Volume 81, Mean Corpuscular Hemoglobin 26, Mean Corpuscular Hemoglobin Concent 32, Red Cell Distribution Width 20.9H, Platelet Count 463H, Mean Platelet Volume 10.7, Immature Granulocyte % (Auto) 0, Neutrophils (%) (Auto) 72, Lymphocytes (%) (Auto) 9L, Monocytes (%) (Auto) 16H, Eosinophils (%) (Auto) 2, Basophils (%) (Auto) 1, Neutrophils # (Auto) 7.7, Lymphocytes # (Auto) 0.9L, Monocytes # (Auto) 1.7H, Eosinophils # (Auto) 0.2, Basophils # (Auto) 0.1, Immature Granulocyte # (Auto) 0.0, Sodium Level 138, Potassium Level 4.4, Chloride Level 108H, Carbon Dioxide Level 24, Anion Gap 6, Blood Urea Nitrogen 22H, Creatinine 0.83, Estimat Glomerular Filtration Rate > 60, BUN/Creatinine Ratio 27, Glucose Level 109H, Calcium Level 8.5, Corrected Calcium 9.1, Total Bilirubin 1.0, Aspartate Amino Transf (AST/SGOT) 31, Alanine Aminotransferase (ALT/SGPT) 27, Alkaline Phosphatase 114, Total Protein 5.6L, Albumin 3.2 11/14/20 05:37: Glucometer 114H Microbiology 11/02/20 MRSA Screen - Final, Complete MRSA not isolated Assessment/Plan Assessment/Plan Assessment/Plan Rectal tear and bleeding secondary to trauma Scrotal swelling Hx of Hep C Hypothyroidism Paroxysmal AFib 2/2 ablation currently on TPN advance diet, dysphagia 3 consider decreasing fluids or adding lasix encourage ambulation and IS FILIBERTO VENTURA DO 11/14/20 1655: Subjective Time Seen by a Provider: 07:59 Subjective/Events-last exam Pt seen and examined, he had just gotten out of bed and was shivering. States he is more swollen and had small BM with blood. He is hungry and is asking when he can go home. Review of Systems General: No Chills; Fatigue, Malaise HEENT: No Head Aches Pulmonary: Dyspnea (with exertion); No Cough Cardiovascular: Edema; No: Chest Pain Gastrointestinal: Abdominal Pain (LLQ ad epigastric), Hematochezia; No: Nausea, Vomiting Genitourinary: No Dysuria, No Hematuria Objective Exam General Appearance: No Apparent Distress, WD/WN HEENT: PERRL/EOMI Respiratory: Lungs Clear, No Accessory Muscle Use, No Respiratory Distress, Decreased Breath Sounds (at bases with dullness to percussion) Cardiovascular: Regular Rate, Rhythm, No Murmur Gastrointestinal: abnormal bowel sounds (decreased), distended (firm); No guarding; tenderness (worse in epigastric area) Extremity: Calf Tenderness (anterior calfs with palpation), Pedal Edema (+2-3) Neurologic/Psychiatric: Alert, Oriented x3, Depressed Affect Assessment/Plan Assessment/Plan Assessment/Plan Rectal tear and bleeding secondary to trauma Bilateral Pleural Effusions Scrotal swelling Hx of Hep C Hypothyroidism Paroxysmal AFib 2/2 ablation currently on TPN, would like to advance diet, need to consider decreasing fluids or adding lasix (will talk with IM and cardiology), encourage ambulation and IS CT with rectal contrast did not show any extravasation, still showed "mass like effect". Plan to do Flex Sig with possible biopsy, would like to look at area of trauma and see if we can start pt on regular diet and get him out of hospital. Supervisory-Addendum Brief Verification & Attestation Participated in pt care: history, MDM, physical Personally performed: exam, history, MDM Care discussed with: Medical Student Procedures: n/a Verification and Attestation of Medical Student E/M Service A medical student performed and documented this service. I then reviewed and verified all information documented by the medical student and made modifications to such information, when appropriate. I personally performed a physical exam, medical decision making and then discussed any differences between the notes and made revisions as necessary to create one note. Filiberto Ventura , 11/14/20 , 16:55 GEOVANNA NINO,MED STUDENT Nov 14, 2020 07:19 FILIBERTO VENTURA DO Nov 14, 2020 16:55
[2020-11-14 07:30] VITALS: BP 116/77
[2020-11-14] MEDS: meTOprolol TARTRATE 25 MG (LOPRESSOR) TABLET PO SCH ×2 (07:42→20:01)
[2020-11-14] MEDS: PANTOPRAZOLE 40 MG (PROTONIX) VIAL IV SCH ×2 (07:43→20:00)
[2020-11-14] MEDS: METOCLOPRAMIDE INJ 10 MG/2 ML (REGLAN) IVP SCH ×4 (07:47→20:01)
--- NOTE | 2020-11-14 09:33 | Cardiology Progress Note ---
Subjective Date Seen by Provider: Nov 14, 2020 Time Seen by Provider: 09:32 Subjective/Events-last exam patient is laying down in bed, still having occasional palpitation, feeling his heart rate tracing whenever he get out of bed. Reporting improvement in abdominal pain Review of Systems General: No Chills, No Night Sweats, No Fatigue, No Malaise, No Appetite, No Other HEENT: No Head Aches, No Visual Changes, No Eye Pain, No Ear Pain, No Dysphasia, No Sinus Congestion, No Post Nasal Drip, No Sore Throat, No Other Pulmonary: No Dyspnea, No Cough, No Pleuritic Chest Pain, No Other Cardiovascular: Palpitations; No: Chest Pain, Orthopnea, Paroxysmal Noc. Dyspnea, Edema, Lt Headedness, Other Objective-Cardiology Exam Last Set of Vital Signs Vital Signs 11/14/20 07:30 Temp 37.2 Pulse 86 Resp 18 B/P (MAP) 116/77 (90) Pulse Ox 98 O2 Delivery Room Air Capillary Refill : Less Than 3 SecondsLess Than 3 Seconds I&O Intake and Output 11/13/20 23:59 Intake Total 2435 ml Output Total 1350 ml Balance 1085 ml Intake Oral 2435 ml Output Urine Total 1350 ml # Voids 5 # Bowel Movements 3 General: Alert, Oriented X3, Cooperative, No Acute Distress HEENT: Atraumatic, PERRLA, Mucous Memb Moist/[place] Neck: Supple, No JVD Lungs: Clear to Auscultation, Normal Air Movement Heart: Regular Rate, Normal S1, Normal S2, No Murmurs Abdomen: Soft, Other (hypoactive bowel sounds, diffuse abdominal ttp greatest at LLQ) Extremities: No Clubbing, No Cyanosis, No Edema, No Tenderness/Swelling Skin: No Rashes, No Breakdown Neuro: Normal Speech, Sensation Intact, Cranial Nerves 3-12 NL Psych/Mental Status: Mental Status NL, Mood NL Results Lab Laboratory Tests 11/14/20 05:00 A/P-Cardiology Admission Diagnosis Perforation of the posterior rectum Paroxysmal atrial fibrillation Coronary artery disease Hepatitis C Assessment/Plan Perforation of the left posterior rectum approximately 9.2 cm from the anal verge, per CT of the abdomen on 11-03-20, associated with GI bleed - management per General Surgery PAF, s/p ablation by Dr Rodriguez at [facility] in 2018 or 2019; pt reports to have had recurrence in February 2020, currently in sinus rhythm with occ PAT. still having episodes of palpitation, I will increase Lopressor to 25 mg twice daily and evaluate tolerance and response OAC with Eliquis, currently held because of GI bleed Mild CAD consisting of mild to mod dz of the LAD that has been unchanged on card caths of 2014, 2017, and 2018 Echo of 03/31/20: LVEF 55-65%, mod MR, PASP 35-40 mmHg H/O PE and DVT in the past per report Hep C + H/O left-sided colon resection H/O splenectomy GILES CHRISTIANSON MD Nov 14, 2020 09:33
--- NOTE | 2020-11-14 10:36 | Progress Note - Hospitalist ---
Subjective HPI/CC On Admission Date Seen by Provider: Nov 14, 2020 Time Seen by Provider: 11:00 The patient is a 59-year-old male who is a poor historian. He presented with pain more in the left lower abdominal quadrant. He has a longstanding history of constipation and in the Emergency Department, underwent a digital rectal examination where there was a bolus of stool; however, after this, there was a significant amount of red blood per rectum. The patient is on apixaban for atrial fibrillation. He also did have what appears to be a left sided colon resection from what appears to be a previous history of a complicated diverticulosis. A CT scan was performed, which did show a colonic staple line along the left lower abdominal quadrant; however, there also appears to be a presacral hematoma, which may indicate a small perforation as well as bleeding below the peritoneal reflection. He is afebrile and only has a mildly elevated white count of 12.4. He is currently receiving fresh frozen plasma to reverse his anticoagulation. Subjective/Events-last exam Patient about the same Apathetic Edema reported so will reach out to Cardiology regarding dose and frequency of diuresis No new pain BM+ Review of Systems General: Fatigue Cardiovascular: Edema Gastrointestinal: Abdominal Pain Objective Exam Vital Signs Vital Signs Date Time Temp Pulse Resp B/P (MAP) Pulse Ox O2 Delivery O2 Flow Rate FiO2 11/15/20 00:06 37.2 81 18 114/71 (85) 97 Room Air Capillary Refill : Less Than 3 SecondsLess Than 3 Seconds General Appearance: No Apparent Distress, WD/WN, Chronically ill Respiratory: Lungs Clear Cardiovascular: Irregularly Irregular Extremity: Pedal Edema Results/Procedures Lab Laboratory Tests 11/14/20 05:00 Patient resulted labs reviewed. Assessment/Plan Assessment and Plan Assess & Plan/Chief Complaint Assessment: Rectal perforation Ileus AF Mental illness Plan: Supportive care TPN CT with rectal contrast 11/14/20: Edema management per Cardiology Supportive care JUAN MANUEL EVANS DO Nov 14, 2020 10:36
[2020-11-14 12:21] VITALS: BP 144/86
[2020-11-14 16:01] VITALS: BP 137/73
[2020-11-14] MEDS: POTASSIUM CHLORIDE IV SCH ×10 (16:52)
[2020-11-14] MEDS: SODIUM PHOSPHATE IV SCH ×10 (16:52)
[2020-11-14] MEDS: [UNRECOGNIZED DRUG - OTHER] IV SCH ×10 (16:52)
[2020-11-14] MEDS: SODIUM ACETATE IV SCH ×10 (16:52)
[2020-11-14] MEDS ORDERED: FUROSEMIDE 40 MG/4 ML INJ (LASIX) IVP NR ×2 (17:00→17:15)
[2020-11-14 19:18] VITALS: BP 129/83
[2020-11-14] MEDS: polyethylene glycoL POWDER 17 GM (MIRALAX) PACK PO SCH (20:00)
[2020-11-15] VITALS (10 sets, daily range): BP systolic 89–162; BP diastolic 53–95
[2020-11-15] MEDS: LORazepam INJ 2 MG/ML (ATIVAN) VIAL IVP PRN (02:18)
[2020-11-15] MEDS: SUCRALFATE 1 GM (CARAFATE) TAB PO SCH ×4 (05:00→20:51)
[2020-11-15] MEDS: BENZONATATE 100 MG (TESSALON) CAPSULE PO SCH ×4 (05:01→23:44)
[2020-11-15] MEDS: LEVOTHYROXINE 75 MCG (LEVOTHROID) TABLET PO SCH (05:01)
[2020-11-15 05:40] LABS: ALBUMIN 3.1 GM/DL (3.2-4.5); CHLORIDE 107 MMOL/L (98-107); POTASSIUM 4.4 MMOL/L (3.6-5.0); SODIUM 138 MMOL/L (135-145)
[2020-11-15 05:41] LABS: BASOPHILS # (AUTO) 0.1 10^3/uL (0.0-0.1); BASOPHILS % (AUTO) 1 % (0-10); CALCIUM 7.8 MG/DL (8.5-10.1); EOSINOPHILS # (AUTO) 0.3 10^3/uL (0.0-0.3); EOSINOPHILS % (AUTO) 2 % (0-10); HEMATOCRIT 26 % (40-54); HEMOGLOBIN 8.2 g/dL (13.3-17.7); LYMPHOCYTES # (AUTO) 0.9 10^3/uL (1.0-4.0); LYMPHOCYTES % (AUTO) 9 % (12-44); MEAN CORPUSCULAR HEMOGLOBIN 26 pg (25-34); MEAN CORPUSCULAR HGB CONC 32 g/dL (32-36); MEAN CORPUSCULAR VOLUME 80 fL (80-99); MEAN PLATELET VOLUME 10.7 fL (9.0-12.2); MONOCYTES # (AUTO) 1.8 10^3/uL (0.0-1.0); MONOCYTES % (AUTO) 17 % (0-12); NEUTROPHILS # (AUTO) 7.7 10^3/uL (1.8-7.8); NEUTROPHILS % (AUTO) 71 % (42-75); PLATELET COUNT 482 10^3/uL (130-400); WHITE BLOOD COUNT 10.8 10^3/uL (4.3-11.0)
[2020-11-15 05:42] LABS: GLUCOSE 130 MG/DL (70-105); TOTAL PROTEIN 5.4 GM/DL (6.4-8.2)
[2020-11-15 05:43] LABS: CARBON DIOXIDE 24 MMOL/L (21-32)
[2020-11-15 05:46] LABS: ALKALINE PHOSPHATASE 133 U/L (40-136); CREATININE SERUM 0.88 MG/DL (0.60-1.30); GFR ESTIMATED > 60
[2020-11-15 05:47] LABS: BUN/CREATININE RATIO 26
[2020-11-15 05:49] LABS: ALANINE AMINOTRANSFERASE 31 U/L (0-55)
--- NOTE | 2020-11-15 07:10 | Progress Note - Surgery ---
GEOVANNA NINO,MED STUDENT 11/15/20 0710: Subjective Date Seen by a Provider: Nov 15, 2020 Time Seen by a Provider: 06:30 Subjective/Events-last exam Pt seen and examined this morning. States his swelling is about the same as yesterday. Reports a large BM last night. Reports SOB with exertion and dizziness that is similar to yesterday. Is hungry. Review of Systems General: No Chills; Fatigue, Appetite HEENT: Other (dizziness when standing up) Pulmonary: Dyspnea (with exertion), Cough Cardiovascular: Edema; No: Chest Pain, Palpitations Gastrointestinal: Abdominal Pain (8/10 epigastric, 3/10 LLQ); No: Nausea, Vomiting Objective Exam Vital Signs Date Time Temp Pulse Resp B/P (MAP) Pulse Ox O2 Delivery O2 Flow Rate FiO2 11/15/20 04:48 36.5 88 18 120/76 (91) 97 Room Air 11/15/20 00:06 37.2 81 18 114/71 (85) 97 Room Air 11/14/20 21:00 92 Room Air 11/14/20 20:52 98 Room Air 11/14/20 19:18 36.6 86 20 129/83 (98) 96 Room Air 11/14/20 16:01 36.6 83 20 137/73 (94) 98 Room Air 11/14/20 13:00 90 11/14/20 12:21 37.2 97 20 144/86 (105) 98 Room Air 11/14/20 09:59 98 Room Air 11/14/20 07:30 37.2 86 18 116/77 (90) 98 Room Air I & O 11/15/20 07:00 Intake Total 1600 ml Balance 1600 ml Capillary Refill : Less Than 3 SecondsLess Than 3 Seconds General Appearance: No Apparent Distress, WD/WN HEENT: PERRL/EOMI, Moist Mucous Membranes; No Scleral Icterus (L), No Scleral Icterus (R) Respiratory: Lungs Clear, No Accessory Muscle Use, No Respiratory Distress, Decreased Breath Sounds (bilateral bases) Cardiovascular: Regular Rate, Rhythm, No Murmur Peripheral Pulses: 1+ Dorsalis Pedis (R), 1+ Left Dors-Pedis (L); 2+ Radial Pulses (R), 2+ Radial Pulses (L) Gastrointestinal: abnormal bowel sounds (decreased), distended (firm); No guarding; tenderness (worse in epigastric area) Extremity: No Calf Tenderness, Pedal Edema (2+ BLE) Neurologic/Psychiatric: Alert, Oriented x3, Depressed Affect Skin: Normal Color, Warm/Dry Results Lab Laboratory Tests 11/14/20 11:52: Glucometer 116H 11/14/20 19:37: Glucometer 123H 11/14/20 21:45: 11/15/20 00:09: Glucometer 118H 11/15/20 05:25: White Blood Count 10.8, Red Blood Count 3.21L, Hemoglobin 8.2L, Hematocrit 26L, Mean Corpuscular Volume 80, Mean Corpuscular Hemoglobin 26, Mean Corpuscular Hemoglobin Concent 32, Red Cell Distribution Width 20.9H, Platelet Count 482H, Mean Platelet Volume 10.7, Immature Granulocyte % (Auto) 0, Neutrophils (%) (Auto) 71, Lymphocytes (%) (Auto) 9L, Monocytes (%) (Auto) 17H, Eosinophils (%) (Auto) 2, Basophils (%) (Auto) 1, Neutrophils # (Auto) 7.7, Lymphocytes # (Auto) 0.9L, Monocytes # (Auto) 1.8H, Eosinophils # (Auto) 0.3, Basophils # (Auto) 0.1, Immature Granulocyte # (Auto) 0.0, Sodium Level 138, Potassium Level 4.4, Chloride Level 107, Carbon Dioxide Level 24, Anion Gap 7, Blood Urea Nitrogen 23H, Creatinine 0.88, Estimat Glomerular Filtration Rate > 60, BUN/Creatinine Ratio 26, Glucose Level 130H, Calcium Level 7.8L, Corrected Calcium 8.5, Total Bilirubin 1.0, Aspartate Amino Transf (AST/SGOT) 30, Alanine Aminotransferase (ALT/SGPT) 31, Alkaline Phosphatase 133, Total Protein 5.4L, Albumin 3.1L Microbiology 11/02/20 MRSA Screen - Final, Complete MRSA not isolated Assessment/Plan Assessment/Plan Assessment/Plan Rectal tear and bleeding secondary to trauma Bilateral Pleural Effusions Scrotal swelling Hx of Hep C Hypothyroidism Paroxysmal AFib s/p ablation Continue TPN, NPO for flex sig today Encourage ambulation, IS Hope to advance diet after flex sig if possible FILIBERTO VENTURA DO 11/15/20 1624: Subjective Time Seen by a Provider: 16:01 Subjective/Events-last exam Pt seen and examined, doing well after Flex Sig this afternoon. He wants to eat real food and asking about going home. Review of Systems General: No Chills; Fatigue Pulmonary: Dyspnea (with exertion), Cough Cardiovascular: Edema; No: Chest Pain, Palpitations Gastrointestinal: Abdominal Pain (8/10 epigastric, 3/10 LLQ); No: Nausea, Vomiting Objective Exam General Appearance: No Apparent Distress, Obese HEENT: Moist Mucous Membranes; No Scleral Icterus (L), No Scleral Icterus (R) Respiratory: Lungs Clear, No Accessory Muscle Use, No Respiratory Distress, Decreased Breath Sounds (bilateral bases) Cardiovascular: Regular Rate, Rhythm, No Murmur Gastrointestinal: abnormal bowel sounds (decreased), distended (firm); No guarding; tenderness (worse in epigastric area) Extremity: No Calf Tenderness, Pedal Edema (2+ BLE) Assessment/Plan Assessment/Plan Assessment/Plan Rectal tear and bleeding secondary to trauma - appeared basically healed during Flex Sig today Diverticula and Int Hemorrhoids - seen during colonoscopy Bilateral Pleural Effusions Scrotal swelling Hx of Hep C Hypothyroidism Paroxysmal AFib s/p ablation Decrease TPN to 1/2 rate for 12 hours and then D/C, start on regular diet. Encourage ambulation and IS use. Lasix for pleural effusions and edema. Probably can restart Eliquis; however, there was some blood in rectal vault seen as scope was inserted. Supervisory-Addendum Brief Verification & Attestation Participated in pt care: history, MDM, physical Personally performed: history, MDM Care discussed with: Medical Student Procedures: n/a Verification and Attestation of Medical Student E/M Service A medical student performed and documented this service. I then reviewed and verified all information documented by the medical student and made modifications to such information, when appropriate. I personally performed a physical exam, medical decision making and then discussed any differences between the notes and made revisions as necessary to create one note. Filiberto Ventura , 11/15/20 , 16:23 GEOVANNA NINO,MED STUDENT Nov 15, 2020 07:10 FILIBERTO VENTURA DO Nov 15, 2020 16:24
[2020-11-15] MEDS: PANTOPRAZOLE 40 MG (PROTONIX) VIAL IV SCH ×2 (08:23→20:50)
[2020-11-15] MEDS: METOCLOPRAMIDE INJ 10 MG/2 ML (REGLAN) IVP SCH ×4 (08:24→20:51)
[2020-11-15] MEDS: meTOprolol TARTRATE 25 MG (LOPRESSOR) TABLET PO SCH ×2 (08:28→20:51)
[2020-11-15] MEDS: 1/2 NS IV SOLUTION 1,000 ML IV SCH (08:33)
[2020-11-15] MEDS ORDERED: LACTATED RINGERS 1,000 ML IV ONE (10:32)
[2020-11-15] MEDS ORDERED: proPOfol 200 MG/20 ML (DIPRIVAN) VIAL IV ONE (11:34)
[2020-11-15] MEDS ORDERED: MIDAZOLAM 2 MG/2 ML (VERSED) VIAL ONE (11:40)
--- NOTE | 2020-11-15 11:42 | Progress Note - Hospitalist ---
Subjective HPI/CC On Admission Date Seen by Provider: Nov 15, 2020 Time Seen by Provider: 10:30 The patient is a 59-year-old male who is a poor historian. He presented with pain more in the left lower abdominal quadrant. He has a longstanding history of constipation and in the Emergency Department, underwent a digital rectal examination where there was a bolus of stool; however, after this, there was a significant amount of red blood per rectum. The patient is on apixaban for atrial fibrillation. He also did have what appears to be a left sided colon resection from what appears to be a previous history of a complicated diverticulosis. A CT scan was performed, which did show a colonic staple line along the left lower abdominal quadrant; however, there also appears to be a presacral hematoma, which may indicate a small perforation as well as bleeding below the peritoneal reflection. He is afebrile and only has a mildly elevated white count of 12.4. He is currently receiving fresh frozen plasma to reverse his anticoagulation. Subjective/Events-last exam Pt sleeping a lot Edema noted Lasix given AF monitored Review of Systems General: Fatigue, Malaise Neurological: Weakness Objective Exam Vital Signs Vital Signs Date Time Temp Pulse Resp B/P (MAP) Pulse Ox O2 Delivery O2 Flow Rate FiO2 11/16/20 04:47 37.0 78 18 105/67 (80) 97 Room Air 11/15/20 12:15 10 Capillary Refill : Less Than 3 SecondsLess Than 3 Seconds General Appearance: No Apparent Distress, WD/WN, Chronically ill Respiratory: Chest Non Tender, Lungs Clear, Normal Breath Sounds, No Accessory Muscle Use, No Respiratory Distress Cardiovascular: Regular Rate, Rhythm, No Gallop, No JVD, No Murmur, Normal Peripheral Pulses Extremity: Pedal Edema Neurologic/Psychiatric: Alert, Oriented x3, No Motor/Sensory Deficits, Normal Mood/Affect Results/Procedures Lab Laboratory Tests 11/16/20 05:05 Patient resulted labs reviewed. Assessment/Plan Assessment and Plan Assess & Plan/Chief Complaint Assessment: Rectal perforation Ileus AF Mental illness Plan: Supportive care TPN CT with rectal contrast 11/14/20: Edema management per Cardiology Supportive care 11/15/20: Edema management Monitor labs JUAN MANUEL EVANS DO Nov 15, 2020 11:42
[2020-11-15] MEDS: LACTATED RINGERS 1,000 ML IV ONE ×2 (11:45→12:44)
--- NOTE | 2020-11-15 12:16 | Progress Note-Post Operative ---
Post-Operative Progess Note Surgeon (s)/Wood Patternmaker (s) Surgeon BON SANCHEZ DO Wood Patternmaker: none Pre-Operative Diagnosis rectal mass, rectal bleed Post-Operative Diagnosis mostly healed perforation diverticula rectal polyp Procedure & Operative Findings Date of Procedure 11/15/20 Procedure Performed/Findings flex sig with bx Anesthesia Type IV sedation by Anesthesia Estimated Blood Loss Estimated blood loss (mL): scant Specimens/Packing Specimens Removed rectal polyp BON SANCHEZ DO Nov 15, 2020 12:16
[2020-11-15 12:31] LABS: PHOSPHORUS 3.2 MG/DL (2.3-4.7)
[2020-11-15 12:33] LABS: MAGNESIUM 2.1 MG/DL (1.6-2.4)
--- NOTE | 2020-11-15 13:41 | Anesthesia-General Post-Op ---
MAC Patient Condition Mental Status/LOC: Same as Preop Cardiovascular: Satisfactory Nausea/Vomiting: Absent Respiratory: Satisfactory Pain: Controlled Complications: Absent Post Op Complications Complications None Follow Up Care/Instructions Patient Instructions None needed. Anesthesiology Discharge Order Discharge Order Patient is doing well, no complaints, stable vital signs, no apparent adverse anesthesia problems. GEORGINA PRESLEY DO Nov 15, 2020 13:41
[2020-11-15] MEDS ORDERED: FUROSEMIDE 40 MG/4 ML INJ (LASIX) ONE (16:30)
[2020-11-15] MEDS: SODIUM PHOSPHATE IV SCH ×10 (16:41)
[2020-11-15] MEDS: [UNRECOGNIZED DRUG - OTHER] IV SCH ×10 (16:41)
[2020-11-15] MEDS: SODIUM ACETATE IV SCH ×10 (16:41)
[2020-11-15] MEDS: POTASSIUM CHLORIDE IV SCH ×10 (16:41)
[2020-11-15] MEDS: polyethylene glycoL POWDER 17 GM (MIRALAX) PACK PO SCH (20:54)
--- NOTE | 2020-11-15 23:10 | OPERATIVE REPORT ---
DATE OF SERVICE: PREOPERATIVE DIAGNOSES: History of rectal trauma, rectal bleed, questionable mass seen on CT. POSTOPERATIVE DIAGNOSES: Diverticula, healing traumatic rectal perforation and a rectal polyp. BLOOD LOSS: Scant. FLUIDS: Per anesthesia. POSTOPERATIVE CONDITION: Stable. INDICATION FOR PROCEDURE: The patient is a 60-year-old male who had a rectal perforation secondary to trauma. On the CAT scan, it looked like there may be a mass and needed to have a colonoscopy to see if we could start on regular diet and make sure there was not a mass. FINDINGS: The patient had some retained fecal material, but he also had diverticula, rectal polyp and could see that the area of trauma was healing. There was some blood in the rectum, but did not see any active bleeding. PROCEDURE NOTE: After informed consent was obtained, the patient was brought to the endoscopy suite, placed in bed in left lateral decubitus position. He was administered IV sedation by the anesthesiologist who then monitored his vitals the entire time, heart rate, blood pressure and pulse ox and the scope was inserted. Upon entry, noted some blood in the rectum, irrigated this and then pushed passes into the sigmoid colon, saw some diverticula. Pushed up to just below the splenic flexure. Again, lots of formed fecal material and some diverticula, but no other pathology and pulled back slowly down into the rectum, could see where the perforation occurred. There was some healing tissue and scab here. No active bleeding and then right around this area saw a small polyp. Elected to do a cold biopsy of this polyp, removed this and then suctioned all the air out, flushed a little bit and then removed the scope. The patient tolerated the procedure. He was recovered in endoscopy suite. Job ID: [id number] DocumentID: [id number] Dictated Date: 11/15/2020 17:34:22 Beamer Helper Date: 11/15/2020 23:09:46 Dictated By: BON SANCHEZ DO
[2020-11-16] MEDS: ALPRAZolam 1 MG (XANAX) TAB PO PRN ×2 (00:13→23:46)
[2020-11-16 04:47] VITALS: BP 105/67
[2020-11-16] MEDS: D5 LR IV SOLUTION 1,000 ML IV SCH ×3 (04:48→23:51)
[2020-11-16 05:18] LABS: BASOPHILS # (AUTO) 0.1 10^3/uL (0.0-0.1); BASOPHILS % (AUTO) 1 % (0-10); EOSINOPHILS # (AUTO) 0.2 10^3/uL (0.0-0.3); EOSINOPHILS % (AUTO) 2 % (0-10); HEMATOCRIT 25 % (40-54); HEMOGLOBIN 8.2 g/dL (13.3-17.7); LYMPHOCYTES # (AUTO) 1.1 10^3/uL (1.0-4.0); LYMPHOCYTES % (AUTO) 11 % (12-44); MEAN CORPUSCULAR HEMOGLOBIN 26 pg (25-34); MEAN CORPUSCULAR HGB CONC 32 g/dL (32-36); MEAN CORPUSCULAR VOLUME 79 fL (80-99); MEAN PLATELET VOLUME 10.5 fL (9.0-12.2); MONOCYTES # (AUTO) 2.1 10^3/uL (0.0-1.0); MONOCYTES % (AUTO) 20 % (0-12); NEUTROPHILS # (AUTO) 7.2 10^3/uL (1.8-7.8); NEUTROPHILS % (AUTO) 67 % (42-75); PLATELET COUNT 499 10^3/uL (130-400); WHITE BLOOD COUNT 10.8 10^3/uL (4.3-11.0)
[2020-11-16 05:25] LABS: ALBUMIN 3.1 GM/DL (3.2-4.5); CHLORIDE 108 MMOL/L (98-107); SODIUM 139 MMOL/L (135-145)
[2020-11-16 05:26] LABS: CALCIUM 7.8 MG/DL (8.5-10.1)
[2020-11-16 05:27] LABS: GLUCOSE 93 MG/DL (70-105); TOTAL PROTEIN 5.3 GM/DL (6.4-8.2)
[2020-11-16 05:28] LABS: CARBON DIOXIDE 24 MMOL/L (21-32)
[2020-11-16 05:29] LABS: BILIRUBIN,TOTAL 1.4 MG/DL (0.1-1.0)
[2020-11-16 05:31] LABS: ALKALINE PHOSPHATASE 142 U/L (40-136); CREATININE SERUM 0.92 MG/DL (0.60-1.30); GFR ESTIMATED > 60
[2020-11-16 05:32] LABS: BUN/CREATININE RATIO 25
[2020-11-16 05:34] LABS: ALANINE AMINOTRANSFERASE 39 U/L (0-55)
[2020-11-16] MEDS: BENZONATATE 100 MG (TESSALON) CAPSULE PO SCH ×4 (06:23→23:46)
[2020-11-16] MEDS: LEVOTHYROXINE 75 MCG (LEVOTHROID) TABLET PO SCH (06:23)
[2020-11-16] MEDS: SUCRALFATE 1 GM (CARAFATE) TAB PO SCH ×4 (06:23→21:01)
--- NOTE | 2020-11-16 07:18 | Progress Note - Hospitalist ---
Subjective HPI/CC On Admission Date Seen by Provider: Nov 16, 2020 Time Seen by Provider: 11:30 The patient is a 59-year-old male who is a poor historian. He presented with pain more in the left lower abdominal quadrant. He has a longstanding history of constipation and in the Emergency Department, underwent a digital rectal examination where there was a bolus of stool; however, after this, there was a significant amount of red blood per rectum. The patient is on apixaban for atrial fibrillation. He also did have what appears to be a left sided colon resection from what appears to be a previous history of a complicated diverticulosis. A CT scan was performed, which did show a colonic staple line along the left lower abdominal quadrant; however, there also appears to be a presacral hematoma, which may indicate a small perforation as well as bleeding below the peritoneal reflection. He is afebrile and only has a mildly elevated white count of 12.4. He is currently receiving fresh frozen plasma to reverse his anticoagulation. Subjective/Events-last exam Patient doing well Edema improved Lasix given Dr Maria indicates stability from AF standpoint Review of Systems General: Fatigue Cardiovascular: Edema Objective Exam Vital Signs Vital Signs Date Time Temp Pulse Resp B/P (MAP) Pulse Ox O2 Delivery O2 Flow Rate FiO2 11/16/20 19:11 80 11/16/20 16:00 37.8 18 107/71 (83) 95 Room Air 11/15/20 12:15 10 Capillary Refill : Less Than 3 SecondsLess Than 3 Seconds General Appearance: No Apparent Distress, WD/WN, Chronically ill Respiratory: Chest Non Tender, Lungs Clear, Normal Breath Sounds, No Accessory Muscle Use, No Respiratory Distress Cardiovascular: Regular Rate, Rhythm, No Gallop, No JVD, No Murmur, Normal Peripheral Pulses Extremity: Pedal Edema Neurologic/Psychiatric: Alert, Oriented x3, No Motor/Sensory Deficits, Depressed Affect Results/Procedures Lab Laboratory Tests 11/16/20 05:05 Patient resulted labs reviewed. Assessment/Plan Assessment and Plan Assess & Plan/Chief Complaint Assessment: Rectal perforation Ileus AF Mental illness Plan: Supportive care TPN CT with rectal contrast 11/14/20: Edema management per Cardiology Supportive care 11/15/20: Edema management Monitor labs 11/16/20: Edema improved Hesitant about going home JUAN MANUEL EVANS DO Nov 16, 2020 07:18
[2020-11-16 08:00] VITALS: BP 149/97
--- NOTE | 2020-11-16 08:11 | Progress Note - Surgery ---
GEOVANNA NINO,MED STUDENT 11/16/20 0811: Subjective Date Seen by a Provider: Nov 16, 2020 Time Seen by a Provider: 07:47 Subjective/Events-last exam Pt seen and examined this AM. States he is going to try eating pancakes for breakfast. States SOB with exertion has improved and the pain and swelling in his scrotum has decreased. Reports minimal abdominal pain. Review of Systems Pulmonary: No Dyspnea, No Cough Cardiovascular: Edema; No: Chest Pain Gastrointestinal: Abdominal Pain; No: Nausea, Vomiting Genitourinary: Other (scrotal swelling, improving) Objective Exam Vital Signs Date Time Temp Pulse Resp B/P (MAP) Pulse Ox O2 Delivery O2 Flow Rate FiO2 11/16/20 07:00 79 11/16/20 04:47 37.0 78 18 105/67 (80) 97 Room Air 11/16/20 01:00 81 11/15/20 23:32 37.6 81 18 103/63 (76) 95 Room Air 11/15/20 20:50 Room Air 11/15/20 19:26 37.5 91 18 162/84 (110) 96 Room Air 11/15/20 15:33 37.0 101 20 141/95 (110) 96 Room Air 11/15/20 12:47 83 11/15/20 12:36 36.0 87 16 130/85 (100) 98 Room Air 11/15/20 12:20 84 18 97 Room Air 11/15/20 12:15 85 18 100 OxyMask 10 11/15/20 12:10 83 18 99 OxyMask 10 11/15/20 09:00 Room Air 11/15/20 08:19 38.0 93 18 133/81 (98) 95 Room Air I & O 11/16/20 07:00 Intake Total 1150 ml Output Total 2025 ml Balance -875 ml Capillary Refill : Less Than 3 SecondsLess Than 3 Seconds General Appearance: No Apparent Distress, WD/WN HEENT: Moist Mucous Membranes; No Scleral Icterus (L), No Scleral Icterus (R) Respiratory: Lungs Clear, No Accessory Muscle Use, No Respiratory Distress, Decreased Breath Sounds (decreased bases, improved from yesterday) Cardiovascular: Regular Rate, Rhythm, No Murmur Peripheral Pulses: 1+ Dorsalis Pedis (R), 1+ Left Dors-Pedis (L); 2+ Radial Pulses (R), 2+ Radial Pulses (L) Gastrointestinal: normal bowel sounds, distended (improved and softer than yesterday); No guarding; tenderness (worse in RUQ) Extremity: Pedal Edema Neurologic/Psychiatric: Alert, Oriented x3, No Motor/Sensory Deficits, Depressed Affect Skin: Normal Color, Warm/Dry Results Lab Laboratory Tests 11/15/20 12:54: Glucometer 117H 11/15/20 17:27: Glucometer 114H 11/15/20 23:36: Glucometer 109 11/16/20 05:05: White Blood Count 10.8, Red Blood Count 3.21L, Hemoglobin 8.2L, Hematocrit 25L, Mean Corpuscular Volume 79L, Mean Corpuscular Hemoglobin 26, Mean Corpuscular Hemoglobin Concent 32, Red Cell Distribution Width 20.4H, Platelet Count 499H, Mean Platelet Volume 10.5, Immature Granulocyte % (Auto) 0, Neutrophils (%) ( Auto) 67, Lymphocytes (%) (Auto) 11L, Monocytes (%) (Auto) 20H, Eosinophils (%) (Auto) 2, Basophils (%) (Auto) 1, Neutrophils # (Auto) 7.2, Lymphocytes # (Auto) 1.1, Monocytes # (Auto) 2.1H, Eosinophils # (Auto) 0.2, Basophils # (Auto) 0.1, Immature Granulocyte # (Auto) 0.0, Sodium Level 139, Potassium Level 4.0, Chloride Level 108H, Carbon Dioxide Level 24, Anion Gap 7, Blood Urea Nitrogen 23H, Creatinine 0.92, Estimat Glomerular Filtration Rate > 60, BUN/Creatinine Ratio 25, Glucose Level 93, Calcium Level 7.8L, Corrected Calcium 8.5, Total Bilirubin 1.4H, Aspartate Amino Transf (AST/SGOT) 35H, Alanine Aminotransferase (ALT/SGPT) 39, Alkaline Phosphatase 142H, Total Protein 5.3L, Albumin 3.1L Microbiology 11/14/20 MRSA Screen - Final, Complete MRSA not isolated Assessment/Plan Assessment/Plan Assessment/Plan Rectal tear and bleeding secondary to trauma - appeared basically healed during Flex Sig yesterday Diverticula and Int Hemorrhoids - seen during colonoscopy 11/15 Bilateral Pleural Effusions Scrotal swelling, improving Hx of Hep C Hypothyroidism Paroxysmal AFib s/p ablation Regular diet, encourage pt to keep stools soft Continue D5/LR until pt is eating adequately Encourage ambulation and IS Continue lasix Can restart eliquis, continue to monitor for signs of worsening rectal bleeding FILIBERTO VENTURA DO 11/16/20 1556: Subjective Time Seen by a Provider: 10:30 Subjective/Events-last exam Pt seen and examined, states he feels better; just wants to eat and go home. Review of Systems General: No Chills, No Night Sweats; Fatigue Pulmonary: No Dyspnea, No Cough Cardiovascular: Edema; No: Chest Pain Gastrointestinal: Abdominal Pain; No: Nausea, Vomiting Genitourinary: Other (scrotal swelling, improving) Objective Exam General Appearance: No Apparent Distress, WD/WN HEENT: Moist Mucous Membranes Respiratory: Lungs Clear, No Accessory Muscle Use, No Respiratory Distress, Decreased Breath Sounds (decreased bases, improved from yesterday) Cardiovascular: Regular Rate, Rhythm, No Murmur Gastrointestinal: normal bowel sounds, distended (improved and softer than yesterday); No guarding Extremity: Pedal Edema (+2 bilaterally) Assessment/Plan Assessment/Plan Assessment/Plan Rectal tear and bleeding secondary to trauma - appeared basically healed during Flex Sig yesterday Diverticula and Int Hemorrhoids - seen during colonoscopy 11/15 Bilateral Pleural Effusions Scrotal swelling, improving Hx of Hep C Hypothyroidism Paroxysmal AFib s/p ablation Regular diet, encourage pt to keep stools soft Continue D5/LR until pt is eating adequately Encourage ambulation and IS Continue lasix for pleural effusions and edema Can restart eliquis, continue to monitor for signs of worsening rectal bleeding Supervisory-Addendum Brief Verification & Attestation Participated in pt care: history, MDM, physical Personally performed: exam, history, MDM Care discussed with: Medical Student Procedures: n/a Verification and Attestation of Medical Student E/M Service A medical student performed and documented this service. I then reviewed and verified all information documented by the medical student and made modifications to such information, when appropriate. I personally performed a physical exam, medical decision making and then discussed any differences between the notes and made revisions as necessary to create one note. Filiberto Ventura , 11/16/20 , 15:56 GEOVANNA NINO,MED STUDENT Nov 16, 2020 08:11 FILIBERTO VENTURA DO Nov 16, 2020 15:56
[2020-11-16] MEDS: meTOprolol TARTRATE 25 MG (LOPRESSOR) TABLET PO SCH ×2 (09:57→21:01)
[2020-11-16] MEDS: METOCLOPRAMIDE INJ 10 MG/2 ML (REGLAN) IVP SCH ×4 (09:57→21:00)
[2020-11-16] MEDS: PANTOPRAZOLE 40 MG (PROTONIX) VIAL IV SCH ×2 (09:57→21:00)
[2020-11-16] MEDS: FUROSEMIDE 40 MG/4 ML INJ (LASIX) IVP SCH (09:57)
--- NOTE | 2020-11-16 10:46 | Cardiology Progress Note ---
Subjective Date Seen by Provider: Nov 16, 2020 Time Seen by Provider: 10:44 Subjective/Events-last exam Patient is laying down in bed. No new complaint Review of Systems General: No Chills, No Night Sweats, No Fatigue, No Malaise, No Appetite, No Other HEENT: No Head Aches, No Visual Changes, No Eye Pain, No Ear Pain, No Dysphasia, No Sinus Congestion, No Post Nasal Drip, No Sore Throat, No Other Pulmonary: No Dyspnea, No Cough, No Pleuritic Chest Pain, No Other Cardiovascular: No: Chest Pain, Palpitations, Orthopnea, Paroxysmal Noc. Dyspnea, Edema, Lt Headedness, Other Objective-Cardiology Exam Last Set of Vital Signs Vital Signs 11/15/20 11/16/20 12:15 08:00 Temp 37.4 Pulse 86 Resp 22 B/P (MAP) 149/97 (114) Pulse Ox 94 O2 Delivery Room Air O2 Flow Rate 10 Capillary Refill : Less Than 3 SecondsLess Than 3 Seconds I&O Intake and Output 11/16/20 00:00 Intake Total 450 ml Output Total 1875 ml Balance -1425 ml Intake Oral 100 ml IV Total 350 ml Output Urine Total 1875 ml # Voids 2 # Bowel Movements 1 General: Alert, Oriented X3, Cooperative, No Acute Distress HEENT: Atraumatic, PERRLA, Mucous Memb Moist/Brice Neck: Supple, No JVD Lungs: Clear to Auscultation, Normal Air Movement Heart: Regular Rate, Normal S1, Normal S2, No Murmurs Abdomen: Soft, Other (hypoactive bowel sounds, diffuse abdominal ttp greatest at LLQ) Extremities: No Clubbing, No Cyanosis, No Edema, No Tenderness/Swelling Skin: No Rashes, No Breakdown Neuro: Normal Speech, Sensation Intact, Cranial Nerves 3-12 NL Psych/Mental Status: Mental Status NL, Mood NL Results Lab Laboratory Tests 11/16/20 05:05 A/P-Cardiology Admission Diagnosis Perforation of the posterior rectum Paroxysmal atrial fibrillation Coronary artery disease Hepatitis C Assessment/Plan Perforation of the left posterior rectum approximately 9.2 cm from the anal verge, per CT of the abdomen on 11-03-20, associated with GI bleed, I'll repeat flexible sigmoidoscopy reported by Dr. Ventura as healed area. Managed by general surgery PAF, s/p ablation by Dr Rodriguez at [facility] in 2019 or 2019; pt reports to have had recurrence in February 2020, currently in sinus rhythm with occ PAT. reporting improvement with the palpitation. Continue to monitor OAC with Eliquis, currently held because of GI bleed, restart oral anticoagulation once okayed by Dr. Ventura Mild CAD consisting of mild to mod dz of the LAD that has been unchanged on card caths of 2014, 2017, and 2018 Echo of 03/31/20: LVEF 55-65%, mod MR, PASP 35-40 mmHg H/O PE and DVT in the past per report Hep C + H/O left-sided colon resection H/O splenectomy GILES CHRISTIANSON MD Nov 16, 2020 10:46
[2020-11-16 12:10] VITALS: BP 146/84
[2020-11-16 16:00] VITALS: BP 107/71
[2020-11-16 20:00] VITALS: BP 107/57
[2020-11-16] MEDS: polyethylene glycoL POWDER 17 GM (MIRALAX) PACK PO SCH (21:01)
[2020-11-17] VITALS: BP 98/52
[2020-11-17 03:53] VITALS: BP 92/52
[2020-11-17] MEDS: LEVOTHYROXINE 75 MCG (LEVOTHROID) TABLET PO SCH (06:35)
[2020-11-17] MEDS: SUCRALFATE 1 GM (CARAFATE) TAB PO SCH ×2 (06:35→11:59)
[2020-11-17] MEDS: BENZONATATE 100 MG (TESSALON) CAPSULE PO SCH ×3 (06:35→11:40)
[2020-11-17] MEDS ORDERED: FLECAINIDE 100 MG (TAMBOCOR) TAB PO PRN (07:30)
[2020-11-17 07:45] LABS: BASOPHILS # (AUTO) 0.1 10^3/uL (0.0-0.1); BASOPHILS % (AUTO) 1 % (0-10); EOSINOPHILS # (AUTO) 0.3 10^3/uL (0.0-0.3); EOSINOPHILS % (AUTO) 3 % (0-10); HEMATOCRIT 27 % (40-54); HEMOGLOBIN 8.7 g/dL (13.3-17.7); LYMPHOCYTES # (AUTO) 1.1 10^3/uL (1.0-4.0); LYMPHOCYTES % (AUTO) 11 % (12-44); MEAN CORPUSCULAR HEMOGLOBIN 26 pg (25-34); MEAN CORPUSCULAR HGB CONC 32 g/dL (32-36); MEAN CORPUSCULAR VOLUME 82 fL (80-99); MEAN PLATELET VOLUME 10.8 fL (9.0-12.2); MONOCYTES # (AUTO) 1.9 10^3/uL (0.0-1.0); MONOCYTES % (AUTO) 19 % (0-12); NEUTROPHILS # (AUTO) 6.7 10^3/uL (1.8-7.8); NEUTROPHILS % (AUTO) 66 % (42-75); PLATELET COUNT 563 10^3/uL (130-400); WHITE BLOOD COUNT 10.2 10^3/uL (4.3-11.0)
[2020-11-17] MEDS: PANTOPRAZOLE 40 MG (PROTONIX) VIAL IV SCH (07:55)
[2020-11-17] MEDS: METOCLOPRAMIDE INJ 10 MG/2 ML (REGLAN) IVP SCH (07:55)
[2020-11-17 07:56] LABS: ALBUMIN 3.3 GM/DL (3.2-4.5)
[2020-11-17] MEDS: FUROSEMIDE 40 MG/4 ML INJ (LASIX) IVP SCH (07:56)
[2020-11-17 07:57] LABS: CHLORIDE 107 MMOL/L (98-107); POTASSIUM 3.8 MMOL/L (3.6-5.0); SODIUM 142 MMOL/L (135-145)
[2020-11-17 07:59] LABS: GLUCOSE 83 MG/DL (70-105); TOTAL PROTEIN 5.6 GM/DL (6.4-8.2)
[2020-11-17 08:00] VITALS: BP 131/77
[2020-11-17 08:00] LABS: CARBON DIOXIDE 26 MMOL/L (21-32)
[2020-11-17 08:01] LABS: BILIRUBIN,TOTAL 1.4 MG/DL (0.1-1.0)
[2020-11-17 08:02] LABS: ALKALINE PHOSPHATASE 199 U/L (40-136)
[2020-11-17 08:03] LABS: CREATININE SERUM 1.13 MG/DL (0.60-1.30); GFR ESTIMATED > 60
[2020-11-17 08:04] LABS: BUN/CREATININE RATIO 22
[2020-11-17 08:06] LABS: ALANINE AMINOTRANSFERASE 44 U/L (0-55)
[2020-11-17] MEDS ORDERED: APIXABAN 5 MG (ELIQUIS) TABLET PO SCH (09:00)
--- NOTE | 2020-11-17 10:14 | Cardiology Progress Note ---
Subjective Date Seen by Provider: Nov 17, 2020 Time Seen by Provider: 10:13 Subjective/Events-last exam Patient is laying down in bed, feeling better today. No new complaint Review of Systems General: No Chills, No Night Sweats, No Fatigue, No Malaise, No Appetite, No Other HEENT: No Head Aches, No Visual Changes, No Eye Pain, No Ear Pain, No Dysphasia, No Sinus Congestion, No Post Nasal Drip, No Sore Throat, No Other Pulmonary: No Dyspnea, No Cough, No Pleuritic Chest Pain, No Other Cardiovascular: No: Chest Pain, Palpitations, Orthopnea, Paroxysmal Noc. Dyspnea, Edema, Lt Headedness, Other Objective-Cardiology Exam Last Set of Vital Signs Vital Signs 11/15/20 11/17/20 12:15 08:00 Temp 36.8 Pulse 89 Resp 20 B/P (MAP) 131/77 (95) Pulse Ox 93 O2 Delivery Room Air O2 Flow Rate 10 Capillary Refill : Less Than 3 SecondsLess Than 3 Seconds I&O Intake and Output 11/17/20 00:00 Intake Total 2285 ml Output Total 150 ml Balance 2135 ml Intake Oral 1585 ml IV Total 700 ml Output Urine Total 150 ml # Voids 6 # Bowel Movements 3 General: Alert, Oriented X3, Cooperative, No Acute Distress HEENT: Atraumatic, PERRLA, Mucous Memb Moist/[place] Neck: Supple, No JVD Lungs: Clear to Auscultation, Normal Air Movement Heart: Regular Rate, Normal S1, Normal S2, No Murmurs Abdomen: Soft, Other (hypoactive bowel sounds, diffuse abdominal ttp greatest at LLQ) Extremities: No Clubbing, No Cyanosis, No Edema, No Tenderness/Swelling Skin: No Rashes, No Breakdown Neuro: Normal Speech, Sensation Intact, Cranial Nerves 3-12 NL Psych/Mental Status: Mental Status NL, Mood NL Results Lab Laboratory Tests 11/17/20 07:27 A/P-Cardiology Admission Diagnosis Perforation of the posterior rectum Paroxysmal atrial fibrillation Coronary artery disease Hepatitis C Assessment/Plan Perforation of the left posterior rectum approximately 9.2 cm from the anal verge, per CT of the abdomen on 11-03-20, associated with GI bleed, I'll repeat flexible sigmoidoscopy reported by Dr. Ventura as healed area. Managed by general surgery PAF, s/p ablation by Dr Rodriguez at [facility] in 2018 or 2019; pt reports to have had recurrence in February 2020, currently in sinus rhythm with occ PAT. reporting improvement with the palpitation. On his reconciliation list the patient indicated that he was not taking flecainide at home anymore. I discontinued it from his home meds OAC with Eliquis, currently held because of GI bleed, restart oral anticoagulation once okayed by Dr. Ventura Mild CAD consisting of mild to mod dz of the LAD that has been unchanged on card caths of 2014, 2017, and 2018 Echo of 03/31/20: LVEF 55-65%, mod MR, PASP 35-40 mmHg H/O PE and DVT in the past per report Hep C + H/O left-sided colon resection H/O splenectomy GILES CHRISTIANSON MD Nov 17, 2020 10:13 am
--- NOTE | 2020-11-17 10:14 | Progress Note - Surgery ---
GEOVANNA NINO,MED STUDENT 11/17/20 1014: Subjective Date Seen by a Provider: Nov 17, 2020 Time Seen by a Provider: 09:55 Subjective/Events-last exam Pt seen and examined this morning. States he is feeling really good and also seems more upbeat today. Having some night sweats. Reports improvement in abd pain. Still having small amount of blood with BMs. Feels like swelling in abdomen and legs has decreased but still reports swelling in scrotal area. Asks if more lasix would help with this. OAC restarted this AM. Denies chest pain, SOB, palpitations. Review of Systems General: Night Sweats Pulmonary: No Dyspnea; Cough Cardiovascular: Edema; No: Chest Pain, Palpitations Gastrointestinal: Hematochezia; No: Nausea, Vomiting, Abdominal Pain Genitourinary: Other (scrotal swelling) Objective Exam Vital Signs Date Time Temp Pulse Resp B/P (MAP) Pulse Ox O2 Delivery O2 Flow Rate FiO2 11/17/20 08:00 Room Air 11/17/20 08:00 36.8 89 20 131/77 (95) 93 Room Air 11/17/20 07:00 80 11/17/20 03:53 36.8 83 20 92/52 (65) 92 Room Air 11/17/20 01:00 82 11/17/20 00:00 37.2 83 20 98/52 (67) 96 Room Air 11/16/20 20:59 Room Air 11/16/20 20:00 36.8 84 20 107/57 (74) 93 Room Air 11/16/20 19:11 80 11/16/20 16:00 37.8 83 18 107/71 (83) 95 Room Air 11/16/20 12:38 80 11/16/20 12:10 37.2 85 20 146/84 (104) 96 Room Air I & O 11/17/20 07:00 Intake Total 1885 ml Balance 1885 ml Capillary Refill : Less Than 3 SecondsLess Than 3 Seconds General Appearance: No Apparent Distress, WD/WN HEENT: Moist Mucous Membranes Neck: No Lymphadenopathy (L), No Lymphadenopathy (R) Respiratory: Lungs Clear, No Accessory Muscle Use, No Respiratory Distress, Decreased Breath Sounds (bilateral bases, improving) Cardiovascular: Regular Rate, Rhythm, No Murmur Gastrointestinal: normal bowel sounds, non tender, soft, distended (improving); No guarding Extremity: No Calf Tenderness, Pedal Edema Neurologic/Psychiatric: Alert, Oriented x3, No Motor/Sensory Deficits Skin: Normal Color, Diaphoresis Results Lab Laboratory Tests 11/16/20 11:29: Glucometer 101 11/16/20 17:52: Glucometer 93 11/17/20 07:27: White Blood Count 10.2, Red Blood Count 3.35L, Hemoglobin 8.7L, Hematocrit 27L, Mean Corpuscular Volume 82, Mean Corpuscular Hemoglobin 26, Mean Corpuscular Hemoglobin Concent 32, Red Cell Distribution Width 20.5H, Platelet Count 563H, Mean Platelet Volume 10.8, Immature Granulocyte % (Auto) 0, Neutrophils (%) (Auto) 66, Lymphocytes (%) (Auto) 11L, Monocytes (%) (Auto) 19H, Eosinophils (%) (Auto) 3, Basophils (%) (Auto) 1, Neutrophils # (Auto) 6.7, Lymphocytes # (Auto) 1.1, Monocytes # (Auto) 1.9H, Eosinophils # (Auto) 0.3, Basophils # (Auto) 0.1, Immature Granulocyte # (Auto) 0.0, Sodium Level 142, Potassium Level 3.8, Chloride Level 107, Carbon Dioxide Level 26, Anion Gap 9, Blood Urea Nitrogen 25H, Creatinine 1.13, Estimat Glomerular Filtration Rate > 60, BUN/Creatinine Ratio 22, Glucose Level 83, Calcium Level 8.0L, Corrected Calcium 8.6, Total Bilirubin 1.4H, Aspartate Amino Transf (AST/SGOT) 33, Alanine Aminotransferase (ALT/SGPT) 44, Alkaline Phosphatase 199H, Total Protein 5.6L, Albumin 3.3 Microbiology 11/14/20 MRSA Screen - Final, Complete MRSA not isolated Assessment/Plan Assessment/Plan Assessment/Plan Rectal tear and bleeding secondary to trauma - appeared basically healed during Flex Sig 11/15 Diverticula and Int Hemorrhoids - seen during Flex Sig 11/15 Bilateral Pleural Effusions Scrotal swelling, improving Hx of Hep C Hypothyroidism Paroxysmal AFib s/p ablation Regular diet, encourage pt to keep stools soft D/c fluids? Encourage ambulation and IS Continue lasix for pleural effusions and edema Continue to monitor for signs of worsening rectal bleeding FILIBERTO VENTURA DO 11/17/20 2005: Subjective Time Seen by a Provider: 10:51 Subjective/Events-last exam Pt seen and examined, states he is ready to go home. Concerned about home meds "for my heart and the swelling". Review of Systems General: Night Sweats Pulmonary: No Dyspnea, No Cough Cardiovascular: Edema; No: Chest Pain, Palpitations Gastrointestinal: Hematochezia; No: Nausea, Vomiting, Abdominal Pain Genitourinary: Other (scrotal swelling) Objective Exam General Appearance: No Apparent Distress, WD/WN HEENT: Moist Mucous Membranes Respiratory: Lungs Clear, No Accessory Muscle Use, No Respiratory Distress, Decreased Breath Sounds (bilateral bases, improving) Cardiovascular: Regular Rate, Rhythm, No Murmur Gastrointestinal: normal bowel sounds, non tender, soft, distended (improving); No guarding Extremity: No Calf Tenderness, Pedal Edema Neurologic/Psychiatric: Alert, Oriented x3 Assessment/Plan Assessment/Plan Assessment/Plan Rectal tear and bleeding secondary to trauma - appeared basically healed during Flex Sig 11/15 Diverticula and Int Hemorrhoids - seen during Flex Sig 11/15 Bilateral Pleural Effusions Scrotal swelling, improving Hx of Hep C Hypothyroidism Paroxysmal AFib s/p ablation Regular diet, encourage pt to keep stools soft Encourage ambulation and IS Continue lasix for pleural effusions and edema - change per cardiology Pt ok to to go home and told to continue to monitor for signs of worsening rectal bleeding Supervisory-Addendum Brief Verification & Attestation Participated in pt care: history, MDM, physical Personally performed: exam, history, MDM Care discussed with: Medical Student Procedures: n/a Verification and Attestation of Medical Student E/M Service A medical student performed and documented this service. I then reviewed and verified all information documented by the medical student and made modifications to such information, when appropriate. I personally performed a physical exam, medical decision making and then discussed any differences between the notes and made revisions as necessary to create one note. Filiberto Ventura , 11/17/20 , 20:05 GEOVANNA NINO,MED STUDENT Nov 17, 2020 10:14 FILIBERTO VENTURA DO Nov 17, 2020 20:05
[2020-11-17] MEDS: D5 LR IV SOLUTION 1,000 ML IV SCH (11:36)
[2020-11-17 11:54] VITALS: BP 115/55
[2020-11-17] MEDS ORDERED: POLY17PO31 PO (12:36)
[2020-11-17] MEDS ORDERED: SUCR1TAB PO (12:36)
[2020-11-17] MEDS ORDERED: FURO-124 PO (12:36)
[2020-11-17] MEDS ORDERED: PANT40TA2 PO (12:36)
--- NOTE | 2020-11-17 12:37 | Discharge Summary ---
Discharge Summary Hospital Course Was the Problem List Reviewed?: Yes Problems/Dx: (1) Rectal perforation Status: Acute (2) Acute lower GI hemorrhage Status: Acute (3) Acute blood loss anemia Status: Acute (4) Atrial fibrillation Status: Chronic Qualifiers: Qualified Codes: I48.0 - Paroxysmal atrial fibrillation Hospital Course Date of Admission: Nov 02, 2020 at 23:29 Admission Diagnosis : Family Physician/Provider: Indiana Bauer Aprn Date of Discharge: 11/17/20 Discharge Diagnosis: rectal perforation, post op ileus, anemia, acute blood loss anemia, AF Hospital Course: Long course after admitted for rectal perforation due to insering a wooden spoon in his rectum due to constipation. Dr Lou consulted and management ensued. TPN placed without absolute bowel rest. Pain was controlled. Cardiology consulted for AF. Patient had a very slow recovery along with volume overload requiring IV lasix. Patient ultimately was able to ambulate and felt well enough to DC and have close f/u with [facility]. Labs and Pending Lab Test: Laboratory Tests 11/16/20 17:52: Glucometer 93 11/17/20 07:27: White Blood Count 10.2, Red Blood Count 3.35L, Hemoglobin 8.7L, Hematocrit 27L, Mean Corpuscular Volume 82, Mean Corpuscular Hemoglobin 26, Mean Corpuscular Hemoglobin Concent 32, Red Cell Distribution Width 20.5H, Platelet Count 563H, Mean Platelet Volume 10.8, Immature Granulocyte % (Auto) 0, Neutrophils (%) (Auto) 66, Lymphocytes (%) (Auto) 11L, Monocytes (%) (Auto) 19H, Eosinophils (%) (Auto) 3, Basophils (%) (Auto) 1, Neutrophils # (Auto) 6.7, Lymphocytes # (Auto) 1.1, Monocytes # (Auto) 1.9H, Eosinophils # (Auto) 0.3, Basophils # (Auto) 0.1, Immature Granulocyte # (Auto) 0.0, Sodium Level 142, Potassium Level 3.8, Chloride Level 107, Carbon Dioxide Level 26, Anion Gap 9, Blood Urea Nitrogen 25H, Creatinine 1.13, Estimat Glomerular Filtration Rate > 60, BUN/Creatinine Ratio 22, Glucose Level 83, Calcium Level 8.0L, Corrected Calcium 8.6, Total Bilirubin 1.4H, Aspartate Amino Transf (AST/SGOT) 33, Alanine Aminotransferase (ALT/SGPT) 44, Alkaline Phosphatase 199H, Total Protein 5.6L, Albumin 3.3 Microbiology 11/14/20 MRSA Screen - Final, Complete MRSA not isolated Home Meds Active Protonix (Pantoprazole Sodium) 40 Mg Tablet.dr 40 Mg PO DAILY Lasix (Furosemide) 40 Mg Tablet 40 Mg PO Q48H Sucralfate 1 Gm Tablet 1 Gm PO ACHS Polyethylene Glycol 3350 17 Gm Powd.pack 8.5 Gm PO HS Reported Hair Vitamin (Multivitamins with Iron) 1 Each Tablet 1 Each PO DAILY Levothyroxine Sodium 75 Mcg Tablet 75 Mcg PO DAILY Xanax (Alprazolam) 1 Mg Tablet 1 Mg PO BID PRN Oxycodone HCl 10 Mg Tablet 10 Mg PO Q6H PRN Atorvastatin Calcium 40 Mg Tablet 40 Mg PO DAILY Eliquis (Apixaban) 5 Mg Tablet 5 Mg PO BID Assessment/Pt Instructions [facility] 1 week Nae Bauer Discharge Planning: <30 minutes discharge planning Discharge Physical Examination Vital Signs Vital Signs Date Time Temp Pulse Resp B/P (MAP) Pulse Ox O2 Delivery O2 Flow Rate FiO2 11/17/20 11:54 36.4 87 20 115/55 (75) 93 Room Air 11/15/20 12:15 10 General Appearance: No Apparent Distress, WD/WN Respiratory: Chest Non Tender, Lungs Clear, Normal Breath Sounds, No Accessory Muscle Use, No Respiratory Distress Allergies: Coded Allergies: Iodinated Contrast Media (Verified Allergy, Unknown, 11/14/20) Discharge Summary Date of Admission Nov 02, 2020 at 23:29 Date of Discharge Discharge Date: Nov 17, 2020 Discharge Diagnosis Assessment: Rectal perforation Ileus AF Mental illness Plan: Supportive care TPN CT with rectal contrast 11/14/20: Edema management per Cardiology Supportive care 11/15/20: Edema management Monitor labs 11/16/20: Edema improved Hesitant about going home JUAN MANUEL EVANS DO Nov 17, 2020 12:37
== END 2020-11-17 13:31 | disposition home or self-care (01) | DRG 394 ==
LOC: EDUNIT# 20:34 → ER 20:37 → ICU 23:29 → 4TH 11-04 18:20
PROVIDERS: ADMIT Surgery; ATTEND Surgery
PROC: 02HV33Z Insertion of Infusion Device into Superior Vena Cava, Percutaneous Approach (ICD-10-PCS; 2020-11-03)
PROC: 0DBP8ZX Excision of Rectum, Via Natural or Artificial Opening Endoscopic, Diagnostic (ICD-10-PCS; principal; 2020-11-15 12:03)
DX: S36.69XA Other injury of rectum, initial encounter (principal); D62 Acute posthemorrhagic anemia; J90 Pleural effusion, not elsewhere classified; K56.7 Ileus, unspecified; K92.1 Melena; K59.09 Other constipation; I48.0 Paroxysmal atrial fibrillation; Z20.822 Contact with and (suspected) exposure to COVID-19; I34.0 Nonrheumatic mitral (valve) insufficiency; E78.00 Pure hypercholesterolemia, unspecified; G43.909 Migraine, unspecified, not intractable, without status migrainosus; G89.29 Other chronic pain; M19.90 Unspecified osteoarthritis, unspecified site; M54.9 Dorsalgia, unspecified; E03.9 Hypothyroidism, unspecified; F41.9 Anxiety disorder, unspecified; F32.9 Major depressive disorder, single episode, unspecified; B19.20 Unspecified viral hepatitis C without hepatic coma; N50.89 Other specified disorders of the male genital organs; K62.1 Rectal polyp; R05 Cough; K57.30 Diverticulosis of large intestine without perforation or abscess without bleeding; R11.2 Nausea with vomiting, unspecified; E87.70 Fluid overload, unspecified; I25.10 Atherosclerotic heart disease of native coronary artery without angina pectoris; K21.9 Gastro-esophageal reflux disease without esophagitis; Z79.01 Long term (current) use of anticoagulants; Z90.49 Acquired absence of other specified parts of digestive tract; Z86.718 Personal history of other venous thrombosis and embolism; Z86.711 Personal history of pulmonary embolism; Z90.81 Acquired absence of spleen; Z87.891 Personal history of nicotine dependence
CPT/HCPCS: 36415; 71045; 74176; 74178; 80048; 80053; 81000; 82962; 83540; 83605; 83735; 84100; 84134; 84478; 85007; 85025; 85027; 85610; 85730; 86850; 86900; 86901; 86920; 87081; 87635; 93005; 93041; 94664; 94760

== ENCOUNTER 2020-11-20 07:16 | Observation (INO) | payer MEDICAID ==
[~2020-11-20 07:16] MED LIST changes: +FURO-124 PO; +LEVO75TA6 PO; +MULT-158 PO; +OXYC-556 PO; +PANT40TA2 PO; +POLY17PO54 PO; +SUCR1TAB PO
[2020-11-20] MEDS ORDERED: ACETAMINOPHEN 500 MG TAB (TYLENOL) PO STA (07:32)
[2020-11-20] MEDS ORDERED: ONDANSETRON 4 MG/2 ML (SDV) Z0FRAN IVP STA (07:35)
[2020-11-20] MEDS: NS IV 1000 ML 1,000 ML IV STA ×2 (07:46→08:25)
[2020-11-20 07:47] LABS: HEMATOCRIT 28 % (40-54); HEMOGLOBIN 9.1 G/DL (13.3-17.7); LYMPHOCYTES % (AUTO) 3 % (12-44); MEAN CORPUSCULAR HEMOGLOBIN 25 PG (25-34); MEAN CORPUSCULAR HGB CONC 32 G/DL (32-36); MEAN CORPUSCULAR VOLUME 79 FL (80-99); MEAN PLATELET VOLUME 10.6 FL (7.4-10.4); MONOCYTES % (AUTO) 13 % (0-12); NEUTROPHILS % (AUTO) 82 % (42-75); PLATELET COUNT 610 10^3/uL (130-400); WHITE BLOOD COUNT 15.5 10^3/uL (4.3-11.0)
[2020-11-20 07:48] LABS: BASOPHILS # (AUTO) 0.1 10^3/uL (0.0-0.1); BASOPHILS % (AUTO) 1 % (0-10); EOSINOPHILS # (AUTO) 0.2 10^3/uL (0.0-0.3); EOSINOPHILS % (AUTO) 1 % (0-10); LYMPHOCYTES # (AUTO) 0.5 X 10^3 (1.0-4.0); MONOCYTES # (AUTO) 1.9 X 10^3 (0.0-1.0); NEUTROPHILS # (AUTO) 12.8 X 10^3 (1.8-7.8)
[2020-11-20 07:59] LABS: INR 1.1 (0.8-1.4); PROTHROMBIN TIME PATIENT 14.8 SEC (12.2-14.7)
[2020-11-20 08:08] LABS: CHLORIDE 104 MMOL/L (98-107); SODIUM 140 MMOL/L (135-145)
[2020-11-20 08:09] LABS: ALANINE AMINOTRANSFERASE 32 U/L (0-55); ALBUMIN 3.5 GM/DL (3.2-4.5); ALKALINE PHOSPHATASE 252 U/L (40-136); BILIRUBIN,TOTAL 1.1 MG/DL (0.1-1.0); BUN/CREATININE RATIO 13; CALCIUM 8.6 MG/DL (8.5-10.1); CARBON DIOXIDE 26 MMOL/L (21-32); CREATININE SERUM 1.04 MG/DL (0.60-1.30); GFR ESTIMATED > 60; GLUCOSE 104 MG/DL (70-105); TOTAL PROTEIN 6.2 GM/DL (6.4-8.2)
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
[2020-11-20 08:14] LABS: BACTERIA,URINE NEGATIVE /HPF; BILIRUBIN,URINE NEGATIVE (NEGATIVE); CLARITY,URINE CLEAR; COLOR,URINE YELLOW; GLUCOSE, URINE (UA) NEGATIVE (NEGATIVE); KETONES,URINE NEGATIVE (NEGATIVE); LEUKOCYTE ESTERASE ,URINE NEGATIVE (NEGATIVE); NITRITE,URINE NEGATIVE (NEGATIVE); PH,URINE 7.5 (5-9); PROTEIN,URINE NEGATIVE (NEGATIVE); SQUAMOUS EPITHELIAL CELL,UR RARE /HPF; WBC,URINE 0-2 /HPF
[2020-11-20 08:15] LABS: BENZODIAZEPINES SCREEN URINE POSITIVE (NEGATIVE); OPIATE SCREEN URINE POSITIVE (NEGATIVE); OXYCODONE STAT POSITIVE (NEGATIVE)
[2020-11-20 08:16] LABS: AMPHETAMINE SCREEN, URINE NEGATIVE (NEGATIVE); BARBITURATE SCREEN URINE NEGATIVE (NEGATIVE); CANNABINOID SCREEN, URINE NEGATIVE (NEGATIVE); COCAINE SCREEN URINE NEGATIVE (NEGATIVE); METHADONE STAT NEGATIVE (NEGATIVE); METHAMPHETAMINE SCREEN URINE S NEGATIVE (NEGATIVE); PROPOXYPHENE STAT NEGATIVE (NEGATIVE); TRICYCLIC ANTIDEPRESSANTS SCRE NEGATIVE (NEGATIVE)
[2020-11-20 08:30] LABS: ACANTHOCYTES SLIGHT; BAND NEUTROPHILS 3 %; BASOPHILS % (MANUAL) 1 %; EOSINOPHILS % (MANUAL) 0 %; HYPOCHROMASIA MODERATE; LYMPHOCYTES % (MANUAL) 5 %; MONOCYTES % (MANUAL) 4 %; NEUTROPHILS % (MANUAL) 87 %
--- NOTE | 2020-11-20 08:35 | Diagnostic Imaging Report ---
EXAM: CHEST 1 VIEW AP/PA ONLY. INDICATION: Fever. Shortness of breath. COMPARISON: Chest radiograph 11/04/2020. FINDINGS: Stable heart size and central pulmonary vascularity. Increasing airspace consolidation in the lung bases. No pleural effusion or pneumothorax. No acute osseous findings. IMPRESSION: Increasing consolidation in the lung bases could represent atelectasis or infiltrate. Dictated by: Dictated on workstation # [id number]
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
[2020-11-20] MEDS ORDERED: CEFEPIME INJECTION 1,000 MG in WATER (STERILE) FOR INJECTION 10 ML IV STA (09:17)
[2020-11-20] MEDS ORDERED: LEVOFLOXACIN 750 MG/150 ML IV 150 ML IV STA (09:17)
[2020-11-20] MEDS ORDERED: NS IV 1000 ML 1,000 ML ONE (11:16)
[2020-11-20] MEDS: NS IV 1000 ML 1,000 ML IV SCH (11:40)
[2020-11-20 12:05] VITALS: BP 119/77
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
[2020-11-20 12:36] VITALS: BP 176/82
[2020-11-20] MEDS ORDERED: ONDANSETRON 4 MG/2 ML (SDV) Z0FRAN IVP PRN (14:00)
[2020-11-20] MEDS: RT-ALBUTEROL/IPRATROPIUM 3 ML (DUONEB) VIAL INH SCH ×2 (14:56→18:04)
[2020-11-20] MEDS ORDERED: FURO40TA4 PO (15:43)
[2020-11-20] MEDS ORDERED: SUCR1TAB36 PO (15:43)
[2020-11-20] MEDS ORDERED: PANT40TA52 PO (15:43)
[2020-11-20 15:48] VITALS: BP 112/72
[2020-11-20] MEDS: CEFEPIME 1,000 MG/SWFI 10 ML IV PUSH IV SCH ×4 (15:50→20:33)
[2020-11-20] MEDS: ACETAMINOPHEN 325 MG TABLET PO PRN (15:56)
[2020-11-20] MEDS ORDERED: RT-ALBUTEROL/IPRATROPIUM 3 ML (DUONEB) VIAL INH PRN (16:00)
[2020-11-20] MEDS ORDERED: NON-FORMULARY MEDICATION 1 EA EA (Oxycodone HCl 10 MG) PO PRN (17:15)
[2020-11-20 19:20] VITALS: BP 176/82
[2020-11-20 20:00] VITALS: BP 112/76
[2020-11-20] MEDS: ALPRAZolam 1 MG (XANAX) TAB PO PRN (20:33)
[2020-11-20] MEDS: SUCRALFATE 1 GM (CARAFATE) TAB PO SCH (20:33)
[2020-11-20] MEDS: APIXABAN 5 MG (ELIQUIS) TABLET PO SCH (20:33)
[2020-11-20] MEDS ORDERED: CEFEPIME INJECTION 2,000 MG in WATER (STERILE) FOR INJECTION 20 ML IV SCH (21:00)
[2020-11-20 23:31] VITALS: BP 116/82
[2020-11-21] MEDS: NS IV 1000 ML 1,000 ML IV SCH ×2 (00:10→16:06)
[2020-11-21 03:42] VITALS: BP 114/63
[2020-11-21] MEDS: CEFEPIME 1,000 MG/SWFI 10 ML IV PUSH IV SCH ×8 (03:54→20:57)
[2020-11-21] MEDS: LEVOTHYROXINE 75 MCG (LEVOTHROID) TABLET PO SCH (05:35)
[2020-11-21] MEDS: SUCRALFATE 1 GM (CARAFATE) TAB PO SCH ×4 (05:35→20:57)
[2020-11-21 06:00] LABS: BASOPHILS # (AUTO) 0.1 10^3/uL (0.0-0.1); BASOPHILS % (AUTO) 1 % (0-10); EOSINOPHILS # (AUTO) 0.4 10^3/uL (0.0-0.3); EOSINOPHILS % (AUTO) 4 % (0-10); HEMATOCRIT 26 % (40-54); HEMOGLOBIN 8.3 g/dL (13.3-17.7); LYMPHOCYTES # (AUTO) 1.1 10^3/uL (1.0-4.0); LYMPHOCYTES % (AUTO) 12 % (12-44); MEAN CORPUSCULAR HEMOGLOBIN 25 pg (25-34); MEAN CORPUSCULAR HGB CONC 32 g/dL (32-36); MEAN CORPUSCULAR VOLUME 79 fL (80-99); MEAN PLATELET VOLUME 10.8 fL (9.0-12.2); MONOCYTES # (AUTO) 1.4 10^3/uL (0.0-1.0); MONOCYTES % (AUTO) 16 % (0-12); NEUTROPHILS # (AUTO) 5.7 10^3/uL (1.8-7.8); NEUTROPHILS % (AUTO) 66 % (42-75); PLATELET COUNT 589 10^3/uL (130-400); WHITE BLOOD COUNT 8.7 10^3/uL (4.3-11.0)
[2020-11-21 06:20] LABS: ALANINE AMINOTRANSFERASE 29 U/L (0-55); ALKALINE PHOSPHATASE 196 U/L (40-136); BILIRUBIN,TOTAL 0.7 MG/DL (0.1-1.0); BUN/CREATININE RATIO 13; CALCIUM 7.9 MG/DL (8.5-10.1); CARBON DIOXIDE 22 MMOL/L (21-32); CHLORIDE 109 MMOL/L (98-107); CREATININE SERUM 1.12 MG/DL (0.60-1.30); GFR ESTIMATED > 60; GLUCOSE 111 MG/DL (70-105); POTASSIUM 3.6 MMOL/L (3.6-5.0); SODIUM 140 MMOL/L (135-145); TOTAL PROTEIN 5.4 GM/DL (6.4-8.2)
[2020-11-21 07:14] VITALS: BP 93/50
[2020-11-21] MEDS: APIXABAN 5 MG (ELIQUIS) TABLET PO SCH ×2 (08:04→20:57)
[2020-11-21] MEDS: ALPRAZolam 1 MG (XANAX) TAB PO PRN ×2 (08:04→20:57)
[2020-11-21] MEDS: PANTOPRAZOLE 40 MG (PROTONIX) TAB PO SCH (08:04)
[2020-11-21] MEDS ORDERED: LEVOFLOXACIN 750 MG/150 ML IV 150 ML IV SCH (10:00)
--- NOTE | 2020-11-21 10:53 | Progress Note ---
Subjective Subjective/Events-last exam Afebrile, feeling much better today, swelling in legs decreased, has been out and walked in the halls. Focused Exam Lactate Level 11/20/20 07:30: Lactic Acid Level 1.54 Objective Exam Last Set of Vital Signs Vital Signs Date Time Temp Pulse Resp B/P (MAP) Pulse Ox O2 Delivery O2 Flow Rate FiO2 11/21/20 08:00 97 Room Air 11/21/20 07:14 35.9 83 18 93/50 (64) 11/20/20 19:20 21 Capillary Refill : Less Than 3 Seconds I&O Intake and Output 11/21/20 00:00 Intake Total 3765 ml Balance 3765 ml Intake Oral 605 ml IV Total 3160 ml # Voids 3 # Bowel Movements 1 General: Alert, No Acute Distress Lungs: Clear to Auscultation, Normal Air Movement Heart: Regular Rate, No Murmurs Extremities: Other (1+ pitting edema to legs) Psych/Mental Status: Mental Status NL, Mood NL Results/Procedures Lab Laboratory Tests 11/20/20 11:00: Coronavirus 2019 ([facility]) Negative 11/20/20 11:54: Procalcitonin 0.12H 11/21/20 05:20: White Blood Count 8.7, Red Blood Count 3.31L, Hemoglobin 8.3L, Hematocrit 26L, Mean Corpuscular Volume 79L, Mean Corpuscular Hemoglobin 25, Mean Corpuscular Hemoglobin Concent 32, Red Cell Distribution Width 19.7H, Platelet Count 589H, Mean Platelet Volume 10.8, Immature Granulocyte % (Auto) 0, Neutrophils (%) (Auto) 66, Lymphocytes (%) (Auto) 12, Monocytes (%) (Auto) 16H, Eosinophils (%) (Auto) 4, Basophils (%) (Auto) 1, Neutrophils # (Auto) 5.7, Lymphocytes # (Auto) 1.1, Monocytes # (Auto) 1.4H, Eosinophils # (Auto) 0.4H, Basophils # (Auto) 0.1, Immature Granulocyte # (Auto) 0.0, Sodium Level 140, Potassium Level 3.6, Chloride Level 109H, Carbon Dioxide Level 22, Anion Gap 9, Blood Urea Nitrogen 15, Creatinine 1.12, Estimat Glomerular Filtration Rate > 60, BUN/Creatinine Ratio 13, Glucose Level 111H, Calcium Level 7.9L, Corrected Calcium 8.7, Total Bilirubin 0.7, Aspartate Amino Transf (AST/SGOT) 19, Alanine Aminotransferase (ALT/SGPT) 29, Alkaline Phosphatase 196H, Total Protein 5.4L, Albumin 3.0L Radiology CXR 11/20/20: IMPRESSION: Increasing consolidation in the lung bases could represent atelectasis or infiltrate. CT abd/pelvis 11/20/20: IMPRESSION: 1. Improving soft tissue inflammation and presacral edema adjacent to the rectosigmoid colon in the area of prior perforation. There is also decreased small amount of free fluid in the abdomen and pelvis. No evidence of bowel obstruction or free air. 2. Stable bilateral pleural effusions with bibasilar opacities. 3. Stable nonobstructing punctate calculus in the superior pole of the left kidney. No evidence of hydronephrosis. Assessment/Plan Assessment/Plan (1) Hospital-acquired pneumonia Status: Acute Assessment & Plan: Levofloxacin, leukocytosis improving, symptoms improving. (2) Sepsis Status: Acute Assessment & Plan: Suspect secondary to pneumonia. UA okay. Treat for healthcare associated pnemonia. Cultures pending. Qualifiers: Qualified Codes: A41.9 - Sepsis, unspecified organism (3) Atrial fibrillation Status: Chronic Assessment & Plan: Resume home metoprolol and apixaban (4) Hypertension Status: Chronic Assessment & Plan: Resume home meds Qualifiers: Qualified Codes: I10 - Essential (primary) hypertension (5) GERD (gastroesophageal reflux disease) Status: Chronic (6) Acute blood loss anemia Status: Acute Assessment & Plan: Recently hospitalized with rectal perforation, anemia stable from last visit. Monitor closely. (7) Rectal perforation Status: Acute Assessment & Plan: Recently hospitalized for this, CT shows improvement. (8) Fever Status: Resolved Qualifiers: Qualified Codes: R50.9 - Fever, unspecified (9) DVT prophylaxis Status: Acute Assessment & Plan: Resume home apixaban NAHOMI FLORES MD Nov 21, 2020 10:53
--- NOTE | 2020-11-21 11:12 | Physical Therapy Progress Note ---
Therapy Progress Note Visited with patient as he was ambulating independently in hallway pushing his IV pole. Patient was observed ambulating independently >1000' without difficulty. Per nursing, patient is also up independently in room and toileting self. No skilled PT indicated. 1 visit (1100) RAMIRO HOUSTON PT Nov 21, 2020 11:12
--- NOTE | 2020-11-21 11:52 | Occupational Therapy Eval ---
OT Evaluation-General/PLF Medical Diagnosis Admission Date Nov 20, 2020 at 10:40 Medical Diagnosis: Pneumonia/sepsis Onset Date: Nov 20, 2020 Therapy Diagnosis Therapy Diagnosis: Weakness, Decreased ADL skills Height/Weight Height (Feet): 6 Height (Inches): 0 Weight (Pounds): 224 Weight (Ounces): 0 Precautions Precautions/Isolations: Fall Prevention Weight Bear Status Weight Bearing Restriction: Weight Bearing/Tolerated Referral Physician: Dr. Roach Referral Reason: Activity Tolerance, Self Care, Evaluation/Treatment, Strengthening/ROM Medical History Pertinent Medical History: Atrial Fib, Arthritis, CAD, Diverticulitis, GERD, HTN, Hypothroidism Additional Medical History Hep C, Sigmoid tear Current History Pt. was recently in hospital due to sigmoid tear from trauma. Pt. was discharged on 11-17-20. He returned on 11-20-20 with nausea and chills. Reviewed History: Yes Social History Home: Single Level Current Living Status: Alone ADL-Prior Level of Function SCALE: Activities may be completed with or without assistive devices. 3-Sgzedifrlb-pkptbts completes the activity by him/herself with no assistance from a helper. 5-Set-up or Clean-up Assistance-helper sets up or cleans up; patient completes activity. [place] assists only prior to or following the activity. 4-Supervision or Touching Assistance-helper provides verbal cues and/or touching/steadying and/or contact guard assistance as patient completes activity. Assistance may be provided throughout the activity or intermittently. 3-Partial/Moderate Assistance-helper does LESS THAN HALF the effort. [place] lifts, holds or supports trunk or limbs, but provides less than half the effort. 2-Substantial/Maximal Assistance-helper does MORE THAN HALF the effort. [place] lifts or holds trunk or limbs and provides more than half the effort. 4-Cixwqojsp-tnpmgz does ALL the effort. Patient does none of the effort to com plete the activity. Or, the assistance of 2 or more helpers is required for the patient to complete the activity. If activity was not attempted, code reason: 7-Patient Refused. 9-Not Applicable-not attempted and the patient did not perform the activity before the current illness, exacerbation or injury. 10-Not Attempted due to Environmental Limitations-(lack of equipment, weather restraints, etc.). 88-Not Attempted due to Medical Conditions or Safety Concerns. ADL PLOF Comments Pt. states that he was independent with daily tasks. Self Care: Independent Functional Cognition: Unknown OT Current Status Subjective Pt. states, "I am just so tired." Mental Status/Objective Patient Orientation: Person, Place Attachments: IV Current Upper Extremity ROM WFL ADL-Treatment Eating (QC): 6 (per pt) Shower/Bathe Self (QC): 5 (Per pt. and nurse. Pt. showered earlier on his own. Assume set up as pt. has IV placement.) On/Off Footwear (QC): 6 (Pt. able to doff/don slipper socks.) Toileting Hygiene (QC): 6 (Per pt. report he is able to take self to toilet and cleanse self.) Other Treatments Nursing verified to this OT that pt. showered self earlier, and was up ambulating independently in hallways. No further OT needed at this time due to pt's current functional status. Education OT Patient Education: Correct positioning, Progress toward Goal/Update tx plan, Purpose of tx/functional activities, Reviewed precautions, Rehab process Teaching Recipient: Patient OT Snf Goals Snf Goals Time Frame: Nov 21, 2020 Additional Goals: 1-Demonstrate ADL Tasks, 2-Verbalize Understanding 1=Demonstrate adherence to instructed precautions during ADL tasks. 2=Patient will verbalize/demonstrate understanding of assistive devices/mo difications for ADL. 3=Patient will improve strength/tolerance for activity to enable patient to perform ADL's. OT Education/Plan Problem List/Assessment Assessment: No Skilled OT Needs ID'd Discharge Recommendations Plan/Recommendations: Discontinue OT Treatment Plan/Plan of Care Plan of Care: OTHER Treatment Duration: Nov 21, 2020 Frequency: 1 time per week Time/GCodes Start Time: 11:00 Stop Time: 11:10 Total Time Billed (hr/min): 10 Billed Treatment Time 1, EVH x 10minutes Discontinue OT services. No OT warranted at this time. DEB DURAN OT Nov 21, 2020 11:52
[2020-11-21 12:00] VITALS: BP 112/76
[2020-11-21 15:19] VITALS: BP 108/71
[2020-11-21 19:26] VITALS: BP 115/75
[2020-11-21] MEDS: ACETAMINOPHEN 325 MG TABLET PO PRN (20:57)
[2020-11-21 23:40] VITALS: BP 118/76
[2020-11-22] MEDS: CEFEPIME 1,000 MG/SWFI 10 ML IV PUSH IV SCH ×4 (03:44→08:58)
[2020-11-22 03:54] VITALS: BP 119/75
[2020-11-22] MEDS: NS IV 1000 ML 1,000 ML IV SCH (03:58)
[2020-11-22 05:35] LABS: HEMOGLOBIN 8.5 g/dL (13.3-17.7); MEAN PLATELET VOLUME 10.1 fL (9.0-12.2); WHITE BLOOD COUNT 8.5 10^3/uL (4.3-11.0)
[2020-11-22 05:41] LABS: POTASSIUM 3.9 MMOL/L (3.6-5.0)
[2020-11-22 05:42] LABS: CALCIUM 7.8 MG/DL (8.5-10.1)
[2020-11-22 05:46] LABS: CREATININE SERUM 1.25 MG/DL (0.60-1.30)
[2020-11-22] MEDS: LEVOTHYROXINE 75 MCG (LEVOTHROID) TABLET PO SCH (06:11)
[2020-11-22] MEDS: SUCRALFATE 1 GM (CARAFATE) TAB PO SCH ×2 (06:11→11:11)
[2020-11-22 08:00] VITALS: BP 130/81
[2020-11-22] MEDS: APIXABAN 5 MG (ELIQUIS) TABLET PO SCH (08:55)
[2020-11-22] MEDS: PANTOPRAZOLE 40 MG (PROTONIX) TAB PO SCH (08:55)
[2020-11-22] MEDS ORDERED: RT-ALBUINH IH (11:42)
[2020-11-22] MEDS ORDERED: LEVO750T39 PO (11:42)
[2020-11-22] MEDS ORDERED: FURO40TA4 PO (11:42)
--- NOTE | 2020-11-22 11:48 | Discharge Summary ---
Discharge Summary Hospital Course Problems/Diagnosis: (1) Hospital-acquired pneumonia Status: Acute Assessment & Plan: Levofloxacin, leukocytosis improving, symptoms improving. Discharged with 7 days of levofloxacin. (2) Sepsis Status: Resolved Resolution Date/Time: 11/22/20 @ 11:43 Assessment & Plan: Suspect secondary to pneumonia. UA okay. Treat for healthcare associated pnemonia. Cultures pending. Qualifiers: Qualified Codes: A41.9 - Sepsis, unspecified organism (3) Atrial fibrillation Status: Chronic Assessment & Plan: Resume home metoprolol and apixaban (4) Hypertension Status: Chronic Assessment & Plan: Resume home meds Qualifiers: Qualified Codes: I10 - Essential (primary) hypertension (5) GERD (gastroesophageal reflux disease) Status: Chronic (6) Acute blood loss anemia Status: Acute Assessment & Plan: Recently hospitalized with rectal perforation, anemia stable from last visit. Monitor closely. (7) Rectal perforation Status: Acute Assessment & Plan: Recently hospitalized for this, CT shows improvement. (8) Fever Status: Resolved Resolution Date/Time: 11/21/20 @ 10:53 Qualifiers: Qualified Codes: R50.9 - Fever, unspecified (9) Edema Status: Acute Assessment & Plan: Will change lasix to daily due to persistent significant edema. Qualifiers: Qualified Codes: R60.1 - Generalized edema Hospital Course Date of Admission: Nov 20, 2020 at 10:40 Admission Diagnosis : Family Physician/Provider: Indiana Bauer Aprn Date of Discharge: 11/22/20 Discharge Diagnosis: See problem list Hospital Course: See problem list Labs and Pending Lab Test: Laboratory Tests 11/22/20 05:04: White Blood Count 8.5, Red Blood Count 3.37L, Hemoglobin 8.5L, Hematocrit 27L, Mean Corpuscular Volume 81, Mean Corpuscular Hemoglobin 25, Mean Corpuscular Hemoglobin Concent 31L, Red Cell Distribution Width 19.9H, Platelet Count 614H, Mean Platelet Volume 10.1, Sodium Level 138, Potassium Level 3.9, Chloride Level 108H, Carbon Dioxide Level 23, Anion Gap 7, Blood Urea Nitrogen 16, Creatinine 1.25, Estimat Glomerular Filtration Rate 59, BUN/Creatinine Ratio 13, Glucose Level 104, Calcium Level 7.8L Microbiology 11/20/20 Gram Stain - Final, Resulted 11/20/20 Sputum Culture, Resulted Pending 11/20/20 Blood Culture - Preliminary, Resulted No growth Home Meds Active Reported Pantoprazole Sodium 40 Mg Tablet.dr 40 Mg PO DAILY Furosemide 40 Mg Tablet 40 Mg PO Q48H Carafate (Sucralfate) 1 Gm Tablet 1 Gm PO ACHS Levothyroxine Sodium 75 Mcg Tablet 75 Mcg PO DAILY Xanax (Alprazolam) 1 Mg Tablet 1 Mg PO BID PRN Oxycodone HCl 10 Mg Tablet 10 Mg PO Q6H PRN Atorvastatin Calcium 40 Mg Tablet 40 Mg PO DAILY Eliquis (Apixaban) 5 Mg Tablet 5 Mg PO BID Assessment/Pt DC Instructions Follow up with on Wednesday, 11/25 at 9:20 with Nae [facility] at [facility]. Discharge Diet: Cardiac Diet Activity as Tolerated: Yes Discharge Physical Examination Allergies: Coded Allergies: Iodinated Contrast Media (Verified Allergy, Unknown, 11/14/20) General Appearance: No Apparent Distress, WD/WN Respiratory: Lungs Clear, Normal Breath Sounds Cardiovascular: Regular Rate, Rhythm, No Murmur Gastrointestinal: Normal Bowel Sounds, Non Tender, Soft Extremity: Pedal Edema (1-2+ pitting) Skin: Warm/Dry Neurologic/Psychiatric: Alert, Normal Mood/Affect NAHOMI FLORES MD Nov 22, 2020 11:48
[2020-11-22 14:43] VITALS: BP 130/81
== END 2020-11-22 11:39 | disposition home or self-care (01) ==
LOC: EDUNIT# 07:16 → ER FS 07:20 → 4TH 10:40 → UNDOADMOB 10:40 → 4TH 11:31 → UNDODISOB 11-22 14:55
PROVIDERS: ADMIT Family Medicine; ATTEND Internal Medicine
DX: J18.9 Pneumonia, unspecified organism (principal); I10 Essential (primary) hypertension; K21.9 Gastro-esophageal reflux disease without esophagitis; D62 Acute posthemorrhagic anemia; K63.1 Perforation of intestine (nontraumatic); R60.1 Generalized edema; A41.9 Sepsis, unspecified organism; E78.5 Hyperlipidemia, unspecified; I48.0 Paroxysmal atrial fibrillation; E78.00 Pure hypercholesterolemia, unspecified; I26.99 Other pulmonary embolism without acute cor pulmonale; G43.909 Migraine, unspecified, not intractable, without status migrainosus; E03.9 Hypothyroidism, unspecified; G89.29 Other chronic pain; F41.9 Anxiety disorder, unspecified; F32.9 Major depressive disorder, single episode, unspecified; Z79.01 Long term (current) use of anticoagulants; Z79.899 Other long term (current) drug therapy; Z91.041 Radiographic dye allergy status; Z79.890 Hormone replacement therapy; Z87.891 Personal history of nicotine dependence; Z80.1 Family history of malignant neoplasm of trachea, bronchus and lung
CPT/HCPCS: 36415; 71045; 74176; 80048; 80053; 80306; 81000; 83605; 83880; 84145; 84484; 85007; 85025; 85027; 85610; 85730; 86141; 87040; 87070; 87205; 87635; 93005; 93041; 94640; 94664; 94760; 96365; 96375; G0378

== ENCOUNTER 2021-01-19 20:28 | Emergency (ER) | payer MEDICAID ==
[~2021-01-19] VITALS: Ht 182.9 cm; Wt 104.5 kg
[~2021-01-19 20:28] MED LIST changes: -DRON400T2 PO; +DRON400T6 PO; +FURO40TA4 PO; +LEVO750T39 PO; +RT-ALBUINH IH; +SENN8.8S14 PO; -SENN8.8S6 PO; +SUCR1TAB36 PO
[2021-01-19 21:02] LABS: HEMATOCRIT 28 % (40-54); HEMOGLOBIN 8.8 G/DL (13.3-17.7); MEAN CORPUSCULAR HEMOGLOBIN 22 PG (25-34); MEAN CORPUSCULAR HGB CONC 32 G/DL (32-36); MEAN CORPUSCULAR VOLUME 70 FL (80-99); MEAN PLATELET VOLUME 9.8 FL (7.4-10.4); PLATELET COUNT 439 10^3/uL (130-400); WHITE BLOOD COUNT 9.5 10^3/uL (4.3-11.0)
[2021-01-19 21:03] LABS: BASOPHILS # (AUTO) 0.1 10^3/uL (0.0-0.1); BASOPHILS % (AUTO) 1 % (0-10); EOSINOPHILS # (AUTO) 0.7 10^3/uL (0.0-0.3); EOSINOPHILS % (AUTO) 7 % (0-10); LYMPHOCYTES # (AUTO) 1.5 X 10^3 (1.0-4.0); LYMPHOCYTES % (AUTO) 16 % (12-44); MONOCYTES # (AUTO) 1.3 X 10^3 (0.0-1.0); MONOCYTES % (AUTO) 14 % (0-12); NEUTROPHILS # (AUTO) 5.8 X 10^3 (1.8-7.8); NEUTROPHILS % (AUTO) 61 % (42-75)
[2021-01-19] MEDS ORDERED: NS IV 1000 ML 1,000 ML IV SCH ×2 (21:15→21:30)
[2021-01-19 21:19] LABS: BACTERIA,URINE FEW /HPF; BILIRUBIN,URINE NEGATIVE (NEGATIVE); CLARITY,URINE CLEAR; COLOR,URINE YELLOW; GLUCOSE, URINE (UA) NEGATIVE (NEGATIVE); HYALINE CASTS, URINE 0-2 /LPF; KETONES,URINE NEGATIVE (NEGATIVE); LEUKOCYTE ESTERASE ,URINE 1+ (NEGATIVE); NITRITE,URINE NEGATIVE (NEGATIVE); PROTEIN,URINE TRACE (NEGATIVE); RBC,URINE RARE /HPF
--- NOTE | 2021-01-19 21:19 | Diagnostic Imaging Report ---
INDICATION: Abdominal pain. EXAMINATION: Abdominal series was performed with frontal chest radiograph and supine and upright abdominal films. FINDINGS: Heart is borderline in size. There is no pneumothorax, gross pleural fluid or focal infiltrate. There is no free intraperitoneal air. There is prominent stool throughout the colon. There is a surgical anastomosis in the pelvis. IMPRESSION: Prominent stool throughout the colon. No sign of free air or bowel obstruction. Previous surgical anastomosis in the left side of the pelvis. Single view of the chest shows no acute finding. Dictated by: Dictated on workstation # [id number]
[2021-01-19 21:21] LABS: ALANINE AMINOTRANSFERASE 11 U/L (0-55); ALBUMIN 3.7 GM/DL (3.2-4.5); ALKALINE PHOSPHATASE 191 U/L (40-136); BILIRUBIN,TOTAL 0.7 MG/DL (0.1-1.0); BUN/CREATININE RATIO 12; CALCIUM 8.7 MG/DL (8.5-10.1); CARBON DIOXIDE 24 MMOL/L (21-32); CHLORIDE 104 MMOL/L (98-107); CREATININE SERUM 1.15 MG/DL (0.60-1.30); GFR ESTIMATED > 60; GLUCOSE 113 MG/DL (70-105); LIPASE 10 U/L (8-78); POTASSIUM 3.5 MMOL/L (3.6-5.0); SODIUM 137 MMOL/L (135-145); TOTAL PROTEIN 6.3 GM/DL (6.4-8.2)
--- NOTE | 2021-01-19 22:03 | Diagnostic Imaging Report ---
INDICATION: Abdominal pain in left upper quadrant. History of splenectomy and colon resection. TECHNIQUE: Multiple contiguous axial images were obtained through the abdomen and pelvis without the use of intravenous contrast. Auto Exposure Controls were utilized during the CT exam to meet ALARA standards for radiation dose reduction. COMPARISON: 11/20/2020. FINDINGS: Compared to the prior study, the bilateral pleural effusions are nearly resolved. Visualized portions of the lung bases show some mild bibasilar scarring or atelectasis. There is no free intraperitoneal air. The liver shows no focal lesion without contrast. Gallbladder appears normal. The spleen is absent with some residual splenic tissue in the left upper quadrant, unchanged from the prior study. Pancreas and adrenals are normal. Kidneys, bilaterally, show no hydronephrosis. There is a nonocclusive stone in the left kidney superiorly. There is no ureteral stone or hydronephrosis. There is no retroperitoneal mass or adenopathy. There is some edema in the left upper quadrant mesentery but this appears unchanged compared to 11/20/2020. Visualized bowel loops show no obstruction. There are extensive colonic diverticuli. There is a surgical anastomosis in the sigmoid region. There is some stranding in the right peritoneal fat, which is unchanged compared to the prior study, without well-defined fluid collection. The subcutaneous edema seen in the previous study is much improved. There is a trace of free fluid around the liver. IMPRESSION: Near complete resolution of bilateral pleural effusions compared to the prior study with improvement in subcutaneous edema compared to the prior study. Patient's had splenectomy and colon resection. There are extensive colonic diverticuli. There is no evidence of bowel obstruction or abscess. There is edema in the mesentery which appears similar to the prior study. There is a nonocclusive stone in the left kidney. Dictated by: Dictated on workstation # [id number]
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
[2021-01-19 22:31] VITALS: BP 142/90
== END 2021-01-19 22:31 | disposition home or self-care (01) ==
LOC: EDUNIT# 20:28 → ER FS 20:31
DX: R42 Dizziness and giddiness (principal); R14.0 Abdominal distension (gaseous); K59.00 Constipation, unspecified; I10 Essential (primary) hypertension; I48.91 Unspecified atrial fibrillation; G89.29 Other chronic pain; M54.9 Dorsalgia, unspecified; E03.9 Hypothyroidism, unspecified; F41.9 Anxiety disorder, unspecified; E78.00 Pure hypercholesterolemia, unspecified; Z91.041 Radiographic dye allergy status; Z87.891 Personal history of nicotine dependence; Z86.718 Personal history of other venous thrombosis and embolism; Z79.891 Long term (current) use of opiate analgesic; Z79.01 Long term (current) use of anticoagulants; Z79.890 Hormone replacement therapy; Z79.899 Other long term (current) drug therapy
CPT/HCPCS: 36415; 74022; 74176; 80053; 81000; 83690; 83880; 85025; 87088

== ENCOUNTER 2021-01-20 20:17 | Observation (INO) | payer MEDICAID ==
[~2021-01-20] VITALS: Ht 182.9 cm; Wt 105.4 kg
[2021-01-20] MEDS ORDERED: HYDROmorphone 2 MG/ML VIAL (DILAUDID) IV ONE (21:30)
[2021-01-20 21:31] LABS: BASOPHILS # (AUTO) 0.1 10^3/uL (0.0-0.1); BASOPHILS % (AUTO) 1 % (0-10); EOSINOPHILS # (AUTO) 0.5 10^3/uL (0.0-0.3); EOSINOPHILS % (AUTO) 7 % (0-10); HEMATOCRIT 28 % (40-54); HEMOGLOBIN 8.8 g/dL (13.3-17.7); LYMPHOCYTES # (AUTO) 1.2 10^3/uL (1.0-4.0); LYMPHOCYTES % (AUTO) 15 % (12-44); MEAN CORPUSCULAR HEMOGLOBIN 22 pg (25-34); MEAN CORPUSCULAR HGB CONC 31 g/dL (32-36); MEAN CORPUSCULAR VOLUME 70 fL (80-99); MEAN PLATELET VOLUME 10.1 fL (9.0-12.2); MONOCYTES % (AUTO) 13 % (0-12); NEUTROPHILS # (AUTO) 5.2 10^3/uL (1.8-7.8); NEUTROPHILS % (AUTO) 65 % (42-75); PLATELET COUNT 461 10^3/uL (130-400); WHITE BLOOD COUNT 8.1 10^3/uL (4.3-11.0)
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
[2021-01-20 21:38] LABS: CHLORIDE 105 MMOL/L (98-107); POTASSIUM 3.5 MMOL/L (3.6-5.0); SODIUM 139 MMOL/L (135-145)
[2021-01-20 21:39] LABS: CALCIUM 8.7 MG/DL (8.5-10.1)
[2021-01-20 21:40] LABS: GLUCOSE 105 MG/DL (70-105)
[2021-01-20 21:41] LABS: CARBON DIOXIDE 24 MMOL/L (21-32)
[2021-01-20 21:43] LABS: CREATININE SERUM 1.14 MG/DL (0.60-1.30); GFR ESTIMATED > 60
[2021-01-20 21:44] LABS: BUN/CREATININE RATIO 10
[2021-01-20] MEDS ORDERED: KETOROLAC 30 MG/ML VIAL IVP ONE (22:00)
[2021-01-20] MEDS ORDERED: ONDANSETRON 4 MG/2 ML (SDV) Z0FRAN IVP ONE (22:00)
--- NOTE | 2021-01-20 22:13 | Diagnostic Imaging Report ---
INDICATION: Chest pain Frontal chest obtained at 09:41 p.m. and compared to 11/20/2020. Heart is top limits normal in size. There is mild central vascular prominence. There is no focal infiltrate or pneumothorax or pleural fluid. IMPRESSION: Borderline heart size with mild central vascular prominence. No acute infiltrate or pleural fluid. Dictated by: Dictated on workstation # [id number]
--- NOTE | 2021-01-20 22:14 | Diagnostic Imaging Report ---
INDICATION: Abdominal pain Abdominal film obtained at 09:43 p.m. The abdominal bowel gas pattern is unremarkable. There is moderate stool throughout the colon. There is no overt obstruction or ileus. There are surgical sutures in the left side of the pelvis. IMPRESSION: Unremarkable bowel gas pattern. Dictated by: Dictated on workstation # [id number]
[2021-01-20] MEDS ORDERED: morphine INJ 10 MG/ML 1ML (SYR OR VIAL) IVP STA (22:59)
[2021-01-20] MEDS ORDERED: ASPIRIN 81 MG CHEW (CHILDREN'S ASA) ONE (23:02)
[2021-01-20] MEDS ORDERED: POTASSIUM CL 10MEQ/50ML IVPB 50 ML IV SCH (23:45)
[2021-01-21] MEDS ORDERED: CATHETER FLUSH 10 ML SYR IV PRN (00:15)
[2021-01-21] MEDS ORDERED: morphine INJ 4 MG/ML 1 ML (VIAL/SYRINGE) IV PRN (00:15)
[2021-01-21] MEDS ORDERED: KCL 20 MEQ TAB (K-DUR) PO ONE (00:45)
[2021-01-21 02:04] VITALS: BP 148/96
[2021-01-21] MEDS ORDERED: RT-ALBUTEROL SULF 2.5 MG/3 ML PRE-MIX VIAL INH PRN (02:15)
[2021-01-21 03:19] LABS: BASOPHILS # (AUTO) 0.1 10^3/uL (0.0-0.1); BASOPHILS % (AUTO) 1 % (0-10); EOSINOPHILS # (AUTO) 0.7 10^3/uL (0.0-0.3); EOSINOPHILS % (AUTO) 10 % (0-10); HEMATOCRIT 27 % (40-54); HEMOGLOBIN 8.6 g/dL (13.3-17.7); LYMPHOCYTES # (AUTO) 1.4 10^3/uL (1.0-4.0); LYMPHOCYTES % (AUTO) 19 % (12-44); MEAN CORPUSCULAR HEMOGLOBIN 22 pg (25-34); MEAN CORPUSCULAR HGB CONC 32 g/dL (32-36); MEAN CORPUSCULAR VOLUME 68 fL (80-99); MEAN PLATELET VOLUME 11.1 fL (9.0-12.2); MONOCYTES # (AUTO) 1.1 10^3/uL (0.0-1.0); MONOCYTES % (AUTO) 15 % (0-12); NEUTROPHILS # (AUTO) 4.3 10^3/uL (1.8-7.8); NEUTROPHILS % (AUTO) 56 % (42-75); PLATELET COUNT 228 10^3/uL (130-400); WHITE BLOOD COUNT 7.7 10^3/uL (4.3-11.0)
[2021-01-21 03:41] LABS: BUN/CREATININE RATIO 10; CARBON DIOXIDE 21 MMOL/L (21-32); CHLORIDE 106 MMOL/L (98-107); CREATININE SERUM 1.14 MG/DL (0.60-1.30); GFR ESTIMATED > 60; GLUCOSE 89 MG/DL (70-105); MAGNESIUM 1.9 MG/DL (1.6-2.4); PHOSPHORUS 2.9 MG/DL (2.3-4.7); SODIUM 137 MMOL/L (135-145)
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
[2021-01-21] MEDS ORDERED: KCL 20 MEQ TAB (K-DUR) PO SCH (06:00)
[2021-01-21] MEDS ORDERED: POTASSIUM CL 10MEQ/50ML IVPB 50 ML IV SCH (06:00)
[2021-01-21] MEDS ORDERED: MAGNESIUM 1 GM/100 ML IVPB 100 ML IV SCH (06:00)
[2021-01-21] MEDS ORDERED: LEVOTHYROXINE 75 MCG (LEVOTHROID) TABLET PO SCH (06:30)
[2021-01-21] MEDS: CATHETER FLUSH 10 ML SYR IV SCH ×3 (06:33→22:02)
--- NOTE | 2021-01-21 08:40 | Consultation-Cardiology ---
HPI-Cardiology Cardiology Consultation: Date of Consultation 01/21/21 Time Seen by a Provider: 08:40 Date of Admission 01-20-21 Attending Physician Augusta Mays DO Admitting Physician [facility] Consulting Physician Curt Hurd MD HPI: Chief Complaint: CP A-fib Mr. Gaffney is a 60 yr old male admitted to ICU 2 from the ED with abdominal pain, gen weakness, dizziness, SOB. He reports he has had lower extremity swelling. He reports he has not been feeling well for the last few weeks. He reports he has had lightheadedness with changes in position. No c/o syncope or near synope. He reports chest pain, pressure, which is mid-sternal, does not radiate and has been constant for over a week. He reports nothing makes it better or worse. He states he continues to have mid-sternal chest discomfort which is somewhat better than at the time of admission. He reports he has PAF, but he has not been on anything other than ASA d/t hematuria a few weeks ago and recent abdominal surgery in Oct 2020 d/t a rectal tear. He reports he has been taking Eliquis BID and has not missed any doses. He reports his main concern at this time is abdominal pain an nausea. Review of Systems-Cardiology Review of Systems Constitutional: No chills, No fever; lightheadedness, malaise Eyes: No vision change Ears/Nose/Throat: No epistaxis, No recent hearing loss, No ulcerations Respiratory: As described under HPI Cardiovascular: As described under HPI Gastrointestinal: As described under HPI Genitourinary: No dysuria; hematuria Musculoskeletal: no symptoms reported Skin: No rash on exposed areas, No ulcerations on exposed areas Psychiatric/Neurological: depression; No seizure, No focal weakness, No syncope Hematologic: No bleeding abnormalities All Other Systems Reviewed Negative Unless Noted: Yes CIC-Hnbnvx-Ewoqte Hx Patient Social History Smoking Status: Never a Smoker 2nd Hand Smoke Exposure: No Have you traveled recently?: No Alcohol Use?: No Pt feels they are or have been: No Immunizations Up To Date Tetanus Booster (TDap): Unknown Date of Pneumonia Vaccine: Jul 21, 2018 Date of Influenza Vaccine: Jun 20, 2020 Past Medical History PMH As described under Assessment. Family Medical History Family Medical History: He does not report any family h/o CAD. Family History: FH: emphysema 19 MOTHER FH: lung cancer 19 FATHER Allergies and Home Medications Allergies Coded Allergies: Iodinated Contrast Media (Verified Allergy, Unknown, 11/14/20) Home Medications Alprazolam 1 Mg Tablet, 1 MG PO BID PRN for ANXIETY, (Reported) Last Action: Continued Apixaban 5 Mg Tablet, 5 MG PO BID, (Reported) Last Action: Continued Atorvastatin Calcium 40 Mg Tablet, 40 MG PO DAILY, (Reported) Last Action: Continued Levothyroxine Sodium 88 Mcg Tablet, 88 MCG PO DAILY, (Reported) Last Action: Continued Oxycodone HCl 10 Mg Tablet, 10 MG PO Q6H PRN for PAIN-SEVERE (8-10), (Reported) Last Action: Converted Physical Exam-Cardiology Physical Exam Vital Signs/I&O 01/21/21 01/21/21 01/22/21 01/22/21 21:55 23:41 00:42 04:00 Temp 36.5 36.4 Pulse 82 83 71 Resp 18 18 B/P (MAP) 130/69 (89) 112/77 (89) Pulse Ox 96 96 96 O2 Delivery Room Air Room Air Room Air 01/22/21 07:45 Temp 36.4 Pulse 73 Resp 18 B/P (MAP) 105/71 (82) Pulse Ox 97 O2 Delivery Room Air 01/21/21 23:59 Intake Total 420 ml Output Total 350 ml Balance 70 ml Capillary Refill : Less Than 3 Seconds Constitutional: AAO x 3, well-developed, well-nourished HEENT: PERRL, hearing is well preserved Neck: No carotid bruit; carotid pulses are 2 + bilaterally Respiratory: No accessory muscle use, No respiratory distress; chest expansion is symmetric, chest is bilaterally symmetric, other (bi-basilar crackles) Cardiovascular: regular rate-rhythm; No JVD; S1 and S2 Gastrointestinal: round, distended, audible bowel sounds Extremities: other (ankle swelling bilat) Neurologic/Psychiatric: grossly intact (moves all extremities) Skin: No rash on exposed areas, No ulcerations on exposed areas Other comments flat affect Data Review Labs Laboratory Tests 01/22/21 03:57: White Blood Count 9.1, Red Blood Count 4.23L, Hemoglobin 9.1L, Hematocrit 30L, Mean Corpuscular Volume 70L, Mean Corpuscular Hemoglobin 22L, Mean Corpuscular Hemoglobin Concent 31L, Red Cell Distribution Width 17.2H, Platelet Count 445H, Mean Platelet Volume 10.4, Immature Granulocyte % (Auto) 0, Neutrophils (%) (Auto) 61, Lymphocytes (%) (Auto) 15, Monocytes (%) (Auto) 16H, Eosinophils (%) (Auto) 8, Basophils (%) (Auto) 1, Neutrophils # (Auto) 5.5, Lymphocytes # (Auto) 1.4, Monocytes # (Auto) 1.4H, Eosinophils # (Auto) 0.7H, Basophils # (Auto) 0.1, Immature Granulocyte # (Auto) 0.0, Sodium Level 141, Potassium Level 4.3, Chloride Level 108H, Carbon Dioxide Level 24, Anion Gap 9, Blood Urea Nitrogen 16, Creatinine 1.19, Estimat Glomerular Filtration Rate > 60, BUN/Creatinine Ratio 13, Glucose Level 114H, Calcium Level 8.7, Corrected Calcium 9.1, Total Bilirubin 0.9, Aspartate Amino Transf (AST/SGOT) 25, Alanine Aminotransferase (ALT/SGPT) 16, Alkaline Phosphatase 175H, Total Protein 6.2L, Albumin 3.5 Microbiology 01/20/21 MRSA Screen - Final, Complete MRSA not isolated Radiology NAME: YEIMYJUAN CARLOS [facility] REC#: [id number] PT STATUS: REG ER : 1960 PHYSICIAN: KIARRA ACOSTA MD ADMIT DATE: 01/20/21/ER Signed Date of Exam:01/20/21 ABDOMEN/KUB 1VIEW INDICATION: Abdominal pain Abdominal film obtained at 09:43 p.m. The abdominal bowel gas pattern is unremarkable. There is moderate stool throughout the colon. There is no overt obstruction or ileus. There are surgical sutures in the left side of the pelvis. IMPRESSION: Unremarkable bowel gas pattern. Dictated by: Dictated on workstation # [id number] Dict: 01/20/212211 Trans: 01/20/212224 [facility] [id number] Interpreted by: SHERRI JAMES MD Electronically signed by: SHERRI JAMES MD 01/20/212224 NAME: JUAN CARLOS [facility] REC#: [id number] PT STATUS: REG ER : 1960 PHYSICIAN: KIARRA ACOSTA MD ADMIT DATE: 01/20/21/ER Signed Date of Exam:01/20/21 CHEST 1 VIEW, AP/PA ONLY INDICATION: Chest pain Frontal chest obtained at 09:41 p.m. and compared to 11/20/2020. Heart is top limits normal in size. There is mild central vascular prominence. There is no focal infiltrate or pneumothorax or pleural fluid. IMPRESSION: Borderline heart size with mild central vascular prominence. No acute infiltrate or pleural fluid. Dictated by: Dictated on workstation # [id number] Dict: 01/20/212210 Trans: 01/20/212224 [facility] [id number] Interpreted by: SHERRI JAMES MD Electronically signed by: SHERRI JAMES MD 01/20/212224 ECG Impression ECG Initial ECG Rhythm: Normal Sinus A/P-Cardiology Assessment/Admission Diagnosis Chest pain of undetermined etiology Gen weakness/fatigue of undetermined etiology Mildly elevated troponin - NSTEMI vs Type 2 MA Anemia of undetermined etiology Perforation of the left posterior rectum approximately 9.2 cm from the anal verge, per CT of the abdomen on 11-03-20, associated with GI bleed - managed by Zenaida Borrero PAF, s/p ablation by Dr Rodriguez at [facility] in 2018 or 2019; pt reports to have had recurrence in February 2020 OAC with Eliquis Mild CAD consisting of mild to mod dz of the LAD that has been unchanged on card caths of 2014, 2017, and 2018 Echo of 03/31/20: LVEF 55-65%, mod MR, PASP 35-40 mmHg H/O PE and DVT in the past per report Hep C + H/O left-sided colon resection H/O splenectomy Discussion and Recomendations Chest pain of undetermined etiology - advised MPI to eval perfusion, which he refuses Elevated troponin NSTEMI vs Type 2 MA Advised MPI to eval perfusion - he refuses PAF - currently SR with controlled rate Continue OAC with Eliquis if ok with surgical/medical services Echocardiogram to eval structure and function Management of abdominal pain per medical services Add PPI and pepcid Monitor lab Replace electrolytes as indicated We would like to thank medical services for this consult Clinical Quality Measures AMI/AHF: ASA po Prior to arrival: GEOVANNA Mabry [facility] January 21, 2021 08:40
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
[2021-01-21] MEDS ORDERED: ASPIRIN 81 MG CHEW (CHILDREN'S ASA) PO SCH ×2 (09:00)
[2021-01-21] MEDS ORDERED: ASPIRIN 325 MG (5 GR) TABLET PO SCH (09:00)
[2021-01-21] MEDS ORDERED: PANTOPRAZOLE 40 MG (PROTONIX) VIAL ONE (09:14)
[2021-01-21] MEDS ORDERED: REGADENOSON 0.4 MG/5 ML SYR (LEXISCAN) IV ONE (10:15)
[2021-01-21] MEDS ORDERED: LEVO88TA54 PO (10:23)
[2021-01-21] MEDS ORDERED: PANTOPRAZOLE 40 MG (PROTONIX) VIAL IV ONE (10:30)
[2021-01-21] MEDS ORDERED: FAMOTIDINE 20 MG (PEPCID) TABLET PO ONE (10:30)
[2021-01-21] MEDS ORDERED: ACETAMINOPHEN 325 MG TABLET ONE (16:24)
[2021-01-21] MEDS ORDERED: ACETAMINOPHEN 325 MG TABLET PO PRN (16:30)
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
--- NOTE | 2021-01-21 17:07 | Consultation-Cardiology ---
HPI-Cardiology Cardiology Consultation: Date of Consultation 01/21/21 Time Seen by a Provider: 16:00 Date of Admission Attending Physician Augusta Mays DO Admitting Physician [place] Consulting Physician KAYLAN FULTON MD, MA, FACP, FACC, [facility], CCDS HPI: Chief Complaint: CC: CP HPI Mr. Rice is a 60 yr old male admitted to ICU 2 from the ED with abdominal pain, gen weakness, dizziness, SOB. He reports he has had lower extremity swelling. He reports he has not been feeling well for the last few weeks. He reports he has had lightheadedness with changes in position. No c/o syncope or near synope. He reports chest pain, pressure, which is mid-sternal, does not radiate and has been constant for over a week. He reports nothing makes it better or worse. He states he continues to have mid-sternal chest discomfort which is somewhat better than at the time of admission. He reports he has PAF, but he has not been on anything other than ASA d/t hematuria a few weeks ago and recent abdominal surgery in Oct 2020 d/t a rectal tear. He reports he has been taking Eliquis BID and has not missed any doses. He reports his main concern at this time is abdominal pain an nausea. Review of Systems-Cardiology Review of Systems Constitutional: No chills, No fever; lightheadedness, malaise Eyes: No vision change Ears/Nose/Throat: No epistaxis, No recent hearing loss, No ulcerations Respiratory: As described under HPI Cardiovascular: As described under HPI Gastrointestinal: As described under HPI Genitourinary: No dysuria; hematuria Musculoskeletal: no symptoms reported Skin: No rash on exposed areas, No ulcerations on exposed areas Psychiatric/Neurological: depression; No seizure, No focal weakness, No syncope Hematologic: No bleeding abnormalities All Other Systems Reviewed Negative Unless Noted: Yes JDY-Qsosad-Fwullt Hx Patient Social History Smoking Status: Never a Smoker 2nd Hand Smoke Exposure: No Have you traveled recently?: No Alcohol Use?: No Pt feels they are or have been: No Immunizations Up To Date Tetanus Booster (TDap): Unknown Date of Pneumonia Vaccine: Jul 21, 2018 Date of Influenza Vaccine: Jun 20, 2020 Past Medical History PMH As described under Assessment. Family Medical History Family Medical History: He does not report any family h/o CAD. Family History: FH: emphysema 19 MOTHER FH: lung cancer 19 FATHER Allergies and Home Medications Allergies Coded Allergies: Iodinated Contrast Media (Verified Allergy, Unknown, 11/14/20) Home Medications Alprazolam 1 Mg Tablet, 1 MG PO BID PRN for ANXIETY, (Reported) Last Action: Reviewed Apixaban 5 Mg Tablet, 5 MG PO BID, (Reported) Last Action: Reviewed Atorvastatin Calcium 40 Mg Tablet, 40 MG PO DAILY, (Reported) Last Action: Reviewed Levothyroxine Sodium 88 Mcg Tablet, 88 MCG PO DAILY, (Reported) Last Action: Reviewed Oxycodone HCl 10 Mg Tablet, 10 MG PO Q6H PRN for PAIN-SEVERE (8-10), (Reported) Last Action: Reviewed Patient Home Medication List Home Medication List Reviewed: Yes Physical Exam-Cardiology Physical Exam Vital Signs/I&O 01/21/21 01/21/21 01/21/21 01/21/21 06:00 06:57 07:40 08:00 Temp 36.9 Pulse 79 79 Resp 21 B/P (MAP) 121/81 (94) Pulse Ox 94 98 O2 Delivery Room Air Room Air 01/21/21 01/21/21 01/21/21 01/21/21 08:00 12:00 12:00 12:57 Temp 36.3 Pulse 78 79 78 Resp 13 12 B/P (MAP) 118/85 (96) 115/78 (90) Pulse Ox 95 94 O2 Delivery Room Air Room Air 01/21/21 01/21/21 15:26 16:00 Temp 36.8 Pulse 77 Resp 15 B/P (MAP) 119/78 (92) Pulse Ox 95 O2 Delivery Room Air Capillary Refill : Less Than 3 Seconds Constitutional: AAO x 3, well-developed, well-nourished HEENT: PERRL, hearing is well preserved Neck: No carotid bruit; carotid pulses are 2 + bilaterally Respiratory: No accessory muscle use, No respiratory distress; chest expansion is symmetric, chest is bilaterally symmetric, other (bi-basilar crackles) Cardiovascular: regular rate-rhythm; No JVD; S1 and S2 Gastrointestinal: round, distended, audible bowel sounds Extremities: other (ankle swelling bilat) Neurologic/Psychiatric: grossly intact (moves all extremities) Skin: No rash on exposed areas, No ulcerations on exposed areas Data Review Labs Laboratory Tests 01/20/21 20:45: White Blood Count 8.1, Red Blood Count 4.02L, Hemoglobin 8.8L, Hematocrit 28L, Mean Corpuscular Volume 70L, Mean Corpuscular Hemoglobin 22L, Mean Corpuscular Hemoglobin Concent 31L, Red Cell Distribution Width 17.0H, Platelet Count 461H, Mean Platelet Volume 10.1, Immature Granulocyte % (Auto) 0, Neutrophils (%) (Auto) 65, Lymphocytes (%) (Auto) 15, Monocytes (%) (Auto) 13H, Eosinophils (%) (Auto) 7, Basophils (%) (Auto) 1, Neutrophils # (Auto) 5.2, Lymphocytes # (Auto) 1.2, Monocytes # (Auto) 1.0, Eosinophils # (Auto) 0.5H, Basophils # (Auto) 0.1, Immature Granulocyte # (Auto) 0.0, Sodium Level 139, Potassium Level 3.5L, Chloride Level 105, Carbon Dioxide Level 24, Anion Gap 10, Blood Urea Nitrogen 11, Creatinine 1.14, Estimat Glomerular Filtration Rate > 60, BUN/Creatinine Ratio 10, Glucose Level 105, Calcium Level 8.7, Troponin I 0.047H 01/21/21 03:01: White Blood Count 7.7, Red Blood Count 3.93L, Hemoglobin 8.6L, Hematocrit 27L, Mean Corpuscular Volume 68L, Mean Corpuscular Hemoglobin 22L, Mean Corpuscular Hemoglobin Concent 32, Red Cell Distribution Width 16.6H, Platelet Count 228, Mean Platelet Volume 11.1, Immature Granulocyte % (Auto) 0, Neutrophils (%) (Auto) 56, Lymphocytes (%) (Auto) 19, Monocytes (%) (Auto) 15H, Eosinophils (%) (Auto) 10, Basophils (%) (Auto) 1, Neutrophils # (Auto) 4.3, Lymphocytes # (Auto) 1.4, Monocytes # (Auto) 1.1H, Eosinophils # (Auto) 0.7H, Basophils # (Auto) 0.1, Immature Granulocyte # (Auto) 0.0, Sodium Level 137, Potassium Level 4.0, Chloride Level 106, Carbon Dioxide Level 21, Anion Gap 10, Blood Urea Nitrogen 11, Creatinine 1.14, Estimat Glomerular Filtration Rate > 60, BUN/Creatinine Ratio 10, Glucose Level 89, Calcium Level 8.0L, Phosphorus Level 2.9, Magnesium Level 1.9 01/21/21 05:57: Troponin I 0.051H Microbiology 01/20/21 MRSA Screen - Final, Complete MRSA not isolated A/P-Cardiology Assessment/Admission Diagnosis Nonspecific chest discomfort of undetermined etiology, likely noncardiac Gen weakness/fatigue of undetermined etiology Dilated cardiomyopathy with mild, [id number]-jf-[id number] systolic CHF - Echo n 01/21/21: LVEF 35-40%, enlargement of atria and RV (mild), mild to mod MR, severe TR, PASP 25-30 mmHg - Mildly elevated troponin on 01/20/21 - likely type 2 [place] due to CHF Microcytic, hypochromic anemia of undetermined etiology, managed by the Med svce Perforation of the left posterior rectum approximately 9.2 cm from the anal verge, per CT of the abdomen on 11-03-20, associated with GI bleed - managed by Dr. Borrero PAF - s/p ablation by Dr Rodriguez at [facility] in 2018 or 2019; pt reports to have had recurrence in February 2020 - OAC with Eliquis Mild CAD consisting of mild to mod dz of the LAD that has been unchanged on card caths of 2014, 2017, and 2018 Echo of 03/31/20: LVEF 55-65%, mod MR, PASP 35-40 mmHg H/O PE and DVT in the past per report Hep C + H/O left-sided colon resection H/O splenectomy Discussion and Recomendations Advised MPI to eval for ischemia as a potential cause of nonspecific chest disc omfort, he refuses Continue OAC with Eliquis if ok with surgical/medical services Continue bb for cardiomyopathy, add MARLEY-inhib Advised sleep studies as part of w/u for cardiomyopathy Management of abdominal pain per Medical services Add PPI and Pepcid Monitor lab Replace electrolytes as indicated We would like to thank Medical services for this consult Clinical Quality Measures AMI/AHF: ASA po Prior to arrival: KAYLAN Kelly MD [facility]S January 21, 2021 17:07
[2021-01-21] MEDS ORDERED: ALPRAZolam 1 MG (XANAX) TAB PO PRN (17:45)
[2021-01-21] MEDS ORDERED: APIXABAN 5 MG (ELIQUIS) TABLET PO SCH (21:00)
[2021-01-21] MEDS: FAMOTIDINE 20 MG (PEPCID) TABLET PO SCH (21:59)
[2021-01-21] MEDS: APIXABAN 5 MG (ELIQUIS) TABLET PO SCH (21:59)
[2021-01-22 04:26] LABS: BASOPHILS # (AUTO) 0.1 10^3/uL (0.0-0.1); BASOPHILS % (AUTO) 1 % (0-10); EOSINOPHILS # (AUTO) 0.7 10^3/uL (0.0-0.3); EOSINOPHILS % (AUTO) 8 % (0-10); HEMATOCRIT 30 % (40-54); HEMOGLOBIN 9.1 g/dL (13.3-17.7); LYMPHOCYTES # (AUTO) 1.4 10^3/uL (1.0-4.0); LYMPHOCYTES % (AUTO) 15 % (12-44); MEAN CORPUSCULAR HEMOGLOBIN 22 pg (25-34); MEAN CORPUSCULAR HGB CONC 31 g/dL (32-36); MEAN CORPUSCULAR VOLUME 70 fL (80-99); MEAN PLATELET VOLUME 10.4 fL (9.0-12.2); MONOCYTES # (AUTO) 1.4 10^3/uL (0.0-1.0); MONOCYTES % (AUTO) 16 % (0-12); NEUTROPHILS # (AUTO) 5.5 10^3/uL (1.8-7.8); NEUTROPHILS % (AUTO) 61 % (42-75); PLATELET COUNT 445 10^3/uL (130-400); WHITE BLOOD COUNT 9.1 10^3/uL (4.3-11.0)
[2021-01-22 04:39] LABS: ALBUMIN 3.5 GM/DL (3.2-4.5)
[2021-01-22 04:40] LABS: CHLORIDE 108 MMOL/L (98-107); POTASSIUM 4.3 MMOL/L (3.6-5.0); SODIUM 141 MMOL/L (135-145)
[2021-01-22 04:41] LABS: CALCIUM 8.7 MG/DL (8.5-10.1)
[2021-01-22 04:42] LABS: GLUCOSE 114 MG/DL (70-105); TOTAL PROTEIN 6.2 GM/DL (6.4-8.2)
[2021-01-22 04:43] LABS: CARBON DIOXIDE 24 MMOL/L (21-32)
[2021-01-22 04:44] LABS: BILIRUBIN,TOTAL 0.9 MG/DL (0.1-1.0)
[2021-01-22 04:45] LABS: ALKALINE PHOSPHATASE 175 U/L (40-136)
[2021-01-22 04:46] LABS: CREATININE SERUM 1.19 MG/DL (0.60-1.30); GFR ESTIMATED > 60
[2021-01-22 04:47] LABS: BUN/CREATININE RATIO 13
[2021-01-22 04:48] LABS: ALANINE AMINOTRANSFERASE 16 U/L (0-55)
[2021-01-22] MEDS: CATHETER FLUSH 10 ML SYR IV SCH (05:20)
--- NOTE | 2021-01-22 06:06 | Progress Note - Hospitalist ---
Subjective HPI/CC On Admission Date Seen by Provider: January 22, 2021 Time Seen by Provider: 09:00 CC: Chest Pain HPI: This is a 60yoWM known to me from multiple hospital stays with a hx of AF with RVR and bowel perforation who presented to the ER with chest pain and palpitations found to have AF with RVR placed in the ICU and cardiology consulted. Pt does have mental issues. Pt having nausea and vomiting, placed him on Protonix and consulted Dr. Lou for no BM for one week, hx of perforation. At this current time pt denies any other significant problems. Subjective/Events-last exam see dc note Objective Exam Vital Signs Vital Signs Date Time Temp Pulse Resp B/P (MAP) Pulse Ox O2 Delivery O2 Flow Rate FiO2 01/22/21 15:42 36.5 81 18 116/65 98 Room Air 01/21/21 02:04 21 Capillary Refill : Less Than 3 Seconds General Appearance: No Apparent Distress, WD/WN, Chronically ill Results/Procedures Lab Laboratory Tests 01/22/21 03:57 Patient resulted labs reviewed. Assessment/Plan Assessment and Plan Assess & Plan/Chief Complaint see dc note Diagnosis/Problems Diagnosis/Problems (1) Atrial fibrillation Status: Chronic (2) Hypertension Status: Chronic Clinical Quality Measures AMI/AHF: ASA po Prior to arrival: JUAN MANUEL Johansen DO January 22, 2021 06:06
[2021-01-22] MEDS: APIXABAN 5 MG (ELIQUIS) TABLET PO SCH (08:14)
[2021-01-22] MEDS: FAMOTIDINE 20 MG (PEPCID) TABLET PO SCH (08:14)
[2021-01-22] MEDS ORDERED: LEVOTHYROXINE 88 MCG (LEVOTHORID) TAB PO SCH (09:00)
[2021-01-22] MEDS ORDERED: PANTOPRAZOLE 40 MG (PROTONIX) TAB PO SCH (09:00)
[2021-01-22] MEDS ORDERED: lisINopril 5 MG (PRINIVIL) TABLET PO SCH (09:00)
[2021-01-22] MEDS ORDERED: SENNA W/DOCUSATE (SENOKOT S) TABLET PO SCH (10:45)
[2021-01-22] MEDS ORDERED: polyethylene glycoL POWDER 17 GM (MIRALAX) PACK PO SCH (10:45)
[2021-01-22] MEDS ORDERED: LACTULOSE SYRUP 10GM/15ML (ENULOSE) 30ML UDC PO SCH (10:45)
[2021-01-22] MEDS ORDERED: SENNOSIDES 8.6 MG (SENOKOT) TAB ONE (11:14)
[2021-01-22] MEDS ORDERED: LACTULOSE SYRUP 10GM/15ML (ENULOSE) 30ML UDC ONE (11:14)
[2021-01-22] MEDS ORDERED: polyethylene glycoL POWDER 17 GM (MIRALAX) PACK ONE (11:14)
[2021-01-22] MEDS ORDERED: SENNA W/DOCUSATE (SENOKOT S) TABLET ONE (11:23)
--- NOTE | 2021-01-22 12:27 | Progress Note ---
Subjective Date Seen by a Provider: January 22, 2021 Time Seen by a Provider: 12:00 Subjective/Events-last exam doing ok. had odd affect and mean to staff. some crampy abd pain with no bm yet. normal axr. Objective Exam Vital Signs Date Time Temp Pulse Resp B/P (MAP) Pulse Ox O2 Delivery O2 Flow Rate FiO2 01/22/21 09:00 97 Room Air 01/22/21 07:45 36.4 73 18 105/71 (82) 97 Room Air 01/22/21 06:50 01/22/21 06:45 71 01/22/21 04:00 36.4 71 18 112/77 (89) 96 Room Air 01/22/21 00:42 83 01/21/21 23:41 36.5 82 18 130/69 (89) 96 Room Air 01/21/21 21:55 96 Room Air 01/21/21 19:17 36.9 76 18 119/77 (91) 96 Room Air 01/21/21 19:00 79 01/21/21 16:00 77 15 119/78 (92) 95 Room Air 01/21/21 15:26 36.8 01/21/21 12:57 78 I & O 01/22/21 07:00 Intake Total 852 ml Output Total 350 ml Balance 502 ml Capillary Refill : Less Than 3 Seconds General Appearance: No Apparent Distress HEENT: PERRL/EOMI Neck: Full Range of Motion Respiratory: Chest Non Tender, Rhonci Cardiovascular: Regular Rate, Rhythm Gastrointestinal: normal bowel sounds, soft, tenderness Extremity: Normal Capillary Refill Neurologic/Psychiatric: Alert, Oriented x3 Skin: Normal Color Lymphatic: No Adenopathy Results Lab Laboratory Tests 01/22/21 03:57: White Blood Count 9.1, Red Blood Count 4.23L, Hemoglobin 9.1L, Hematocrit 30L, Mean Corpuscular Volume 70L, Mean Corpuscular Hemoglobin 22L, Mean Corpuscular Hemoglobin Concent 31L, Red Cell Distribution Width 17.2H, Platelet Count 445H, Mean Platelet Volume 10.4, Immature Granulocyte % (Auto) 0, Neutrophils (%) (Auto) 61, Lymphocytes (%) (Auto) 15, Monocytes (%) (Auto) 16H, Eosinophils (%) (Auto) 8, Basophils (%) (Auto) 1, Neutrophils # (Auto) 5.5, Lymphocytes # (Auto) 1.4, Monocytes # (Auto) 1.4H, Eosinophils # (Auto) 0.7H, Basophils # (Auto) 0.1, Immature Granulocyte # (Auto) 0.0, Sodium Level 141, Potassium Level 4.3, Chloride Level 108H, Carbon Dioxide Level 24, Anion Gap 9, Blood Urea Nitrogen 16, Creatinine 1.19, Estimat Glomerular Filtration Rate > 60, BUN/Creatinine Ratio 13, Glucose Level 114H, Calcium Level 8.7, Corrected Calcium 9.1, Total Bilirubin 0.9, Aspartate Amino Transf (AST/SGOT) 25, Alanine Aminotransferase (ALT/SGPT) 16, Alkaline Phosphatase 175H, Total Protein 6.2L, Albumin 3.5 Microbiology 01/20/21 MRSA Screen - Final, Complete MRSA not isolated Assessment/Plan Assessment/Plan Assess & Plan/Chief Complaint a-fib with rvr and constipation. cont miralax bid until significant BM Clinical Quality Measures AMI/AHF: ASA po Prior to arrival: IMMANUEL Subramanian MD January 22, 2021 12:27
--- NOTE | 2021-01-22 12:32 | Diagnostic Imaging Report ---
INDICATION: Constipation. COMPARISON: 01/20/2021. FINDINGS: Two supine radiographic views of the abdomen were obtained. The small bowel loops are nondistended. Moderate air and stool are again noted scattered throughout the colon. No unexpected extraosseous calcifications or radiopaque foreign bodies are seen. The osseous structures show age-related degenerative changes. IMPRESSION: 1. Nonobstructed small bowel gas pattern. 2. Moderate colonic air and stool. Please correlate for constipation. Dictated by: Dictated on workstation # [id number]
--- NOTE | 2021-01-22 12:34 | Progress Note - Cardiology ---
Cardiology SOAP Progress Note Subjective: Gen malaise and weakness No cp or palp or syncope No shortness of breath at rest No n/v/d Reports abd discomfort and constipation Objective: I&O/Vital Signs 01/22/21 01/22/21 01/22/21 01/22/21 00:42 04:00 06:45 06:50 Temp 36.4 Pulse 83 71 71 Resp 18 B/P (MAP) 112/77 (89) Pulse Ox 96 O2 Delivery Room Air 01/22/21 01/22/21 07:45 09:00 Temp 36.4 Pulse 73 Resp 18 B/P (MAP) 105/71 (82) Pulse Ox 97 97 O2 Delivery Room Air Room Air 01/22/21 00:00 Intake Total 420 ml Output Total 350 ml Balance 70 ml Weight (Pounds): 224 Weight (Ounces): 0 Weight (Calculated Kilograms): [id number] Constitutional: AAO x 3, well-developed, well-nourished Respiratory: No accessory muscle use, No respiratory distress; chest expansion is symmetric, chest is bilaterally symmetric, other (bi-basilar crackles) Cardiovascular: regular rate-rhythm; No JVD; S1 and S2 Gastrointestional: round, distended, audible bowel sounds Extremities: other (ankle swelling bilat) Neurologic/Psychiatric: grossly intact (moves all extremities) Skin: No rash on exposed areas, No ulcerations on exposed areas Results/Procedures: Labs Laboratory Tests 01/22/21 03:57: White Blood Count 9.1, Red Blood Count 4.23L, Hemoglobin 9.1L, Hematocrit 30L, Mean Corpuscular Volume 70L, Mean Corpuscular Hemoglobin 22L, Mean Corpuscular Hemoglobin Concent 31L, Red Cell Distribution Width 17.2H, Platelet Count 445H, Mean Platelet Volume 10.4, Immature Granulocyte % (Auto) 0, Neutrophils (%) (Auto) 61, Lymphocytes (%) (Auto) 15, Monocytes (%) (Auto) 16H, Eosinophils (%) (Auto) 8, Basophils (%) (Auto) 1, Neutrophils # (Auto) 5.5, Lymphocytes # (Auto) 1.4, Monocytes # (Auto) 1.4H, Eosinophils # (Auto) 0.7H, Basophils # (Auto) 0.1, Immature Granulocyte # (Auto) 0.0, Sodium Level 141, Potassium Level 4.3, Chloride Level 108H, Carbon Dioxide Level 24, Anion Gap 9, Blood Urea Nitrogen 16, Creatinine 1.19, Estimat Glomerular Filtration Rate > 60, BUN/Creatinine Ratio 13, Glucose Level 114H, Calcium Level 8.7, Corrected Calcium 9.1, Total Bilirubin 0.9, Aspartate Amino Transf (AST/SGOT) 25, Alanine Aminotransferase (ALT/SGPT) 16, Alkaline Phosphatase 175H, Total Protein 6.2L, Albumin 3.5 Microbiology 01/20/21 MRSA Screen - Final, Complete MRSA not isolated Laboratory Tests 01/20/21 20:45 01/21/21 03:01 01/22/21 03:57 A/P: Assessment: Nonspecific chest discomfort of undetermined etiology, likely noncardiac Gen weakness/fatigue of undetermined etiology Dilated cardiomyopathy with mild, [id number] systolic CHF - Echo n 01/21/21: LVEF 35-40%, enlargement of atria and RV (mild), mild to mod MR, severe TR, PASP 25-30 mmHg - Mildly elevated troponin on 01/20/21 - likely type 2 [place] due to CHF Abd discomfort and constipation, managed by Dr Mays Microcytic, hypochromic anemia of undetermined etiology, managed by the [employer] [facility] Perforation of the left posterior rectum approximately 9.2 cm from the anal verge, per CT of the abdomen on 11-03-20, associated with GI bleed - managed by Dr. Borrero PAF - s/p ablation by Dr Rodriguez at [facility] in 2018 or 2019; pt reports to have had recurrence in February 2020 - OAC with Eliquis Mild CAD consisting of mild to mod dz of the LAD that has been unchanged on card caths of 2014, 2017, and 2018 Echo of 03/31/20: LVEF 55-65%, mod MR, PASP 35-40 mmHg H/O PE and DVT in the past per report Hep C + H/O left-sided colon resection H/O splenectomy Plan: Advised MPI to eval for ischemia as a potential cause of nonspecific chest discomfort, he refuses Continue OAC with Eliquis, continue bb for cardiomyopathy, and continue newly- added MARLEY-inhib. Regimen has been approved by the Med svce Advised sleep studies as part of w/u for cardiomyopathy Management of abdominal pain per Medical services Monitor lab Replace electrolytes as indicated Clinical Quality Measures AMI/AHF: ASA po Prior to arrival: KAYLAN Kelly MD FACP [facility]S January 22, 2021 12:34
[2021-01-22] MEDS ORDERED: MTP25TSR PO (13:10)
[2021-01-22] MEDS ORDERED: LISI-729 PO (13:10)
[2021-01-22] MEDS ORDERED: LACT20SO2 PO (13:25)
[2021-01-22] MEDS ORDERED: POLY17PO54 PO (13:25)
[2021-01-22] MEDS ORDERED: SENN1TAB76 PO (13:25)
[2021-01-22] MEDS ORDERED: PANT40TA52 PO (13:25)
[2021-01-22] MEDS ORDERED: ALPR1TAB2 PO (13:25)
[2021-01-22] MEDS ORDERED: FAMO20TA5 PO (13:25)
--- NOTE | 2021-01-22 13:27 | Discharge Summary ---
Discharge Summary Hospital Course Was the Problem List Reviewed?: Yes Problems/Dx: (1) Atrial fibrillation Status: Chronic (2) Hypertension Status: Chronic Hospital Course Date of Admission: January 20, 2021 at 23:00 Admission Diagnosis : Family Physician/Provider: Indiana Bauer Aprn Date of Discharge: 01/22/21 Discharge Diagnosis: AF RVR, Type II NSTEMI, Constipation, malingering Hospital Course: Hospital course: Pt had an uneventful hospital course, he was placed in observation for elevated Troponin and AFIB with RVR and constipation, Dr. Lou was consulted, placed on PPI and Pepsid, Dr. Hurd reviewed his case and felt it was unnecessary to proceed on with any additional procedures like a cardiac cath, overall he did very well, had no significant complaints and laxatives were ordered upon disch arge and he was stable at that time and went home in an uneventful manner. Labs and Pending Lab Test: Laboratory Tests 01/22/21 03:57: White Blood Count 9.1, Red Blood Count 4.23L, Hemoglobin 9.1L, Hematocrit 30L, Mean Corpuscular Volume 70L, Mean Corpuscular Hemoglobin 22L, Mean Corpuscular Hemoglobin Concent 31L, Red Cell Distribution Width 17.2H, Platelet Count 445H, Mean Platelet Volume 10.4, Immature Granulocyte % (Auto) 0, Neutrophils (%) (Auto) 61, Lymphocytes (%) (Auto) 15, Monocytes (%) (Auto) 16H, Eosinophils (%) (Auto) 8, Basophils (%) (Auto) 1, Neutrophils # (Auto) 5.5, Lymphocytes # (Auto) 1.4, Monocytes # (Auto) 1.4H, Eosinophils # (Auto) 0.7H, Basophils # (Auto) 0.1, Immature Granulocyte # (Auto) 0.0, Sodium Level 141, Potassium Level 4.3, Chloride Level 108H, Carbon Dioxide Level 24, Anion Gap 9, Blood Urea Nitrogen 16, Creatinine 1.19, Estimat Glomerular Filtration Rate > 60, BUN/Creatinine Ratio 13, Glucose Level 114H, Calcium Level 8.7, Corrected Calcium 9.1, Total Bilirubin 0.9, Aspartate Amino Transf (AST/SGOT) 25, Alanine Aminotransferase (ALT/SGPT) 16, Alkaline Phosphatase 175H, Total Protein 6.2L, Albumin 3.5 Microbiology 01/20/21 MRSA Screen - Final, Complete MRSA not isolated Home Meds Active Pantoprazole Sodium 40 Mg Tablet.dr 40 Mg PO DAILY Famotidine 20 Mg Tablet 20 Mg PO BID Stool Softener-Laxative Tablet (Sennosides/Docusate Sodium) 1 Each Tablet 2 Ea PO BID Polyethylene Glycol 3350 17 Gm Powd.pack 17 Gm PO BID Lactulose 20 Gm/30 Ml Solution 10 Gm PO BID Xanax (Alprazolam) 1 Mg Tablet 1 Mg PO BID PRN Lisinopril 5 Mg Tablet 5 Mg PO DAILY Metoprolol Succinate 25 Mg Tab.er.24h 25 Mg PO DAILY Reported Levothyroxine Sodium 88 Mcg Tablet 88 Mcg PO DAILY Oxycodone HCl 10 Mg Tablet 10 Mg PO Q6H PRN Atorvastatin Calcium 40 Mg Tablet 40 Mg PO DAILY Eliquis (Apixaban) 5 Mg Tablet 5 Mg PO BID Assessment/Pt Instructions [facility] later this week Discharge Planning: <30 minutes discharge planning Discharge Instructions Discharge Diet: Cardiac Diet Discharge Physical Examination Vital Signs Vital Signs Date Time Temp Pulse Resp B/P (MAP) Pulse Ox O2 Delivery O2 Flow Rate FiO2 01/22/21 12:46 36.5 82 18 116/65 (82) 98 Room Air 01/21/21 02:04 21 General Appearance: No Apparent Distress, WD/WN, Chronically ill Respiratory: Lungs Clear Cardiovascular: Regular Rate, Rhythm Neurologic/Psychiatric: Alert, Oriented x3, No Motor/Sensory Deficits, Normal Mood/Affect Allergies: Coded Allergies: Iodinated Contrast Media (Verified Allergy, Unknown, 11/14/20) Discharge Summary Date of Admission January 20, 2021 at 23:00 Date of Discharge Discharge Date: January 22, 2021 Admission Diagnosis Assessment: AF RVR CP Abdominal pain h/o obstruction Chronic pain Mental illness Plan: Cardiology Dr Lou Monitor AF OAC Home meds Discharge Diagnosis (1) Atrial fibrillation Status: Chronic (2) Hypertension Status: Chronic Clinical Quality Measures AMI/AHF: ASA po Prior to arrival: JUAN MANUEL Johansen DO January 22, 2021 13:27
[2021-01-22 15:42] VITALS: BP 116/65
== END 2021-01-22 15:46 | disposition home or self-care (01) ==
LOC: EDUNIT# 20:17 → ER 20:20 → ICU 23:00 → 4TH 01-21 18:23
PROVIDERS: ADMIT Internal Medicine; ATTEND Internal Medicine
DX: I48.0 Paroxysmal atrial fibrillation (principal); I21.A1 Myocardial infarction type 2; K59.09 Other constipation; E78.00 Pure hypercholesterolemia, unspecified; I11.0 Hypertensive heart disease with heart failure; I42.0 Dilated cardiomyopathy; I50.23 Acute on chronic systolic (congestive) heart failure; D50.9 Iron deficiency anemia, unspecified; G43.909 Migraine, unspecified, not intractable, without status migrainosus; M19.90 Unspecified osteoarthritis, unspecified site; G89.29 Other chronic pain; M54.9 Dorsalgia, unspecified; E03.9 Hypothyroidism, unspecified; I25.10 Atherosclerotic heart disease of native coronary artery without angina pectoris; F41.9 Anxiety disorder, unspecified; F32.9 Major depressive disorder, single episode, unspecified; Z90.81 Acquired absence of spleen; Z91.041 Radiographic dye allergy status; Z79.890 Hormone replacement therapy; Z86.010 Personal history of colon polyps; Z79.899 Other long term (current) drug therapy; Z79.891 Long term (current) use of opiate analgesic; Z86.718 Personal history of other venous thrombosis and embolism; Z85.038 Personal history of other malignant neoplasm of large intestine; Z87.891 Personal history of nicotine dependence
CPT/HCPCS: 36415; 71045; 74018; 80048; 80053; 83735; 84100; 84484; 85025; 87081; 93005; 93306; 96374; 96375; G0378

== ENCOUNTER 2021-01-31 17:18 | Emergency (ER) | payer MEDICAID ==
[~2021-01-31] VITALS: Ht 182.8 cm; Wt 99.7 kg
[~2021-01-31 17:18] MED LIST changes: +FAMO20TA5 PO; +LACT20SO2 PO; +LEVO88TA54 PO; +LISI-729 PO; +MTP25TSR PO; +SENN1TAB76 PO
[2021-01-31 17:36] LABS: BASOPHILS # (AUTO) 0.1 10^3/uL (0.0-0.1); BASOPHILS % (AUTO) 1 % (0-10); EOSINOPHILS # (AUTO) 0.4 10^3/uL (0.0-0.3); EOSINOPHILS % (AUTO) 5 % (0-10); HEMATOCRIT 32 % (40-54); HEMOGLOBIN 10.1 G/DL (13.3-17.7); LYMPHOCYTES # (AUTO) 1.3 X 10^3 (1.0-4.0); LYMPHOCYTES % (AUTO) 16 % (12-44); MEAN CORPUSCULAR HEMOGLOBIN 21 PG (25-34); MEAN CORPUSCULAR HGB CONC 31 G/DL (32-36); MEAN CORPUSCULAR VOLUME 68 FL (80-99); MEAN PLATELET VOLUME 9.9 FL (7.4-10.4); MONOCYTES # (AUTO) 1.1 X 10^3 (0.0-1.0); MONOCYTES % (AUTO) 13 % (0-12); NEUTROPHILS # (AUTO) 5.4 X 10^3 (1.8-7.8); NEUTROPHILS % (AUTO) 65 % (42-75); PLATELET COUNT 558 10^3/uL (130-400); WHITE BLOOD COUNT 8.3 10^3/uL (4.3-11.0)
[2021-01-31 17:55] LABS: ALANINE AMINOTRANSFERASE 13 U/L (0-55); ALKALINE PHOSPHATASE 239 U/L (40-136); BILIRUBIN,TOTAL 0.9 MG/DL (0.1-1.0); BUN/CREATININE RATIO 10; CALCIUM 9.5 MG/DL (8.5-10.1); CARBON DIOXIDE 25 MMOL/L (21-32); CHLORIDE 106 MMOL/L (98-107); GFR ESTIMATED > 60; GLUCOSE 126 MG/DL (70-105); SODIUM 143 MMOL/L (135-145); TOTAL PROTEIN 7.1 GM/DL (6.4-8.2)
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
--- NOTE | 2021-01-31 18:34 | Diagnostic Imaging Report ---
EXAMINATION: Portable erect AP chest at 6:19 PM INDICATION: Chest pain The borderline cardiomegaly and the mildly prominent central pulmonary vascularity seen on the prior exam of 01/20/2021 are again evident and not significantly changed. Minimal atelectasis is also again seen in the left lung base. There is no consolidated pneumonia identified nor is there any evidence for significant pleural effusion. The mediastinum is not widened. The osseous structures are intact. IMPRESSION: Stable chest. There has been no adverse change since the prior exam. Dictated by: Dictated on workstation # [id number]
[2021-01-31 18:46] VITALS: BP 147/87
== END 2021-01-31 18:46 | disposition home or self-care (01) ==
LOC: EDUNIT# 17:18 → ER FS 17:19
DX: R07.9 Chest pain, unspecified (principal); I10 Essential (primary) hypertension; E78.00 Pure hypercholesterolemia, unspecified; I48.91 Unspecified atrial fibrillation; G89.29 Other chronic pain; M54.9 Dorsalgia, unspecified; E03.9 Hypothyroidism, unspecified; F41.9 Anxiety disorder, unspecified; Z91.041 Radiographic dye allergy status; Z87.891 Personal history of nicotine dependence; Z86.711 Personal history of pulmonary embolism; Z86.718 Personal history of other venous thrombosis and embolism; Z79.01 Long term (current) use of anticoagulants; Z79.899 Other long term (current) drug therapy; Z79.891 Long term (current) use of opiate analgesic; Z79.890 Hormone replacement therapy
CPT/HCPCS: 36415; 71045; 80053; 84484; 85025

== ENCOUNTER 2021-03-06 05:39 | Outpatient (CLI) | payer MEDICAID ==
[~2021-03-06] VITALS: Ht 182.9 cm; Wt 93.2 kg
== END 2021-03-06 15:34 | disposition home or self-care (01) ==
LOC: PREOP 05:39
PROVIDERS: ATTEND Surgery
DX: Z01.818 Encounter for other preprocedural examination (principal)

== ENCOUNTER 2021-04-02 18:12 | Emergency (ER) | payer OTHER, MEDICAID ==
[~2021-04-02] VITALS: Ht 182 cm; Wt 90.0 kg
[2021-04-02] MEDS ORDERED: morphine INJ 10 MG/ML 1ML (SYR OR VIAL) IVP ONE (18:30)
[2021-04-02] MEDS ORDERED: ASPIRIN 81 MG CHEW (CHILDREN'S ASA) PO ONE (18:30)
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
[2021-04-02 18:44] LABS: HEMATOCRIT 32 % (40-54); MEAN CORPUSCULAR HEMOGLOBIN 21 PG (25-34); MEAN CORPUSCULAR HGB CONC 32 G/DL (32-36); MEAN CORPUSCULAR VOLUME 65 FL (80-99); WHITE BLOOD COUNT 9.6 10^3/uL (4.3-11.0)
[2021-04-02 18:45] LABS: BASOPHILS # (AUTO) 0.1 10^3/uL (0.0-0.1); BASOPHILS % (AUTO) 1 % (0-10); EOSINOPHILS # (AUTO) 0.4 10^3/uL (0.0-0.3); EOSINOPHILS % (AUTO) 5 % (0-10); LYMPHOCYTES # (AUTO) 1.3 X 10^3 (1.0-4.0); LYMPHOCYTES % (AUTO) 14 % (12-44); MEAN PLATELET VOLUME 9.9 FL (7.4-10.4); MONOCYTES # (AUTO) 1.3 X 10^3 (0.0-1.0); MONOCYTES % (AUTO) 13 % (0-12); NEUTROPHILS # (AUTO) 6.4 X 10^3 (1.8-7.8); NEUTROPHILS % (AUTO) 67 % (42-75); PLATELET COUNT 543 10^3/uL (130-400)
[2021-04-02 18:52] LABS: INR 1.2 (0.8-1.4); PROTHROMBIN TIME PATIENT 15.6 SEC (12.2-14.7)
--- NOTE | 2021-04-02 19:02 | Diagnostic Imaging Report ---
Clinical indication: Patient with chest pain. Exam: Portable chest x-ray upright view. Comparisons: Chest x-ray dated 01/31/2021. Findings: Lungs/pleura: There is minimal bibasilar atelectasis. There is no lung infiltrate. There is no pneumothorax. There is no pleural effusion. Mediastinum: Unremarkable. Pulmonary vasculature: Unremarkable. Heart: Unremarkable. Bones/extrathoracic soft tissue: There are degenerative spurs involving the thoracic spine. Impression: There is no radiographic evidence of acute cardiopulmonary process. There is minimal bibasilar atelectasis. Dictated by: Dictated on workstation # [id number]
[2021-04-02 19:29] LABS: POTASSIUM 3.9 MMOL/L (3.6-5.0)
[2021-04-02 19:30] LABS: ALBUMIN 3.9 GM/DL (3.2-4.5); BILIRUBIN,TOTAL 0.8 MG/DL (0.1-1.0); CALCIUM 9.4 MG/DL (8.5-10.1); CREATININE SERUM 1.26 MG/DL (0.60-1.30); MAGNESIUM 2.1 MG/DL (1.6-2.4); TOTAL PROTEIN 6.8 GM/DL (6.4-8.2)
[2021-04-02] MEDS ORDERED: HYDROcodone/APAP 5 MG/325 MG (LORTAB) TAB PO ONE (19:30)
[2021-04-02] MEDS ORDERED: KETOROLAC 30 MG/ML VIAL IVP ONE (19:30)
[2021-04-02 21:31] VITALS: BP 136/82
== END 2021-04-02 21:31 | disposition home or self-care (01) ==
LOC: EDUNIT# 18:12 → ER FS 18:13
DX: R07.89 Other chest pain (principal); I10 Essential (primary) hypertension; E78.00 Pure hypercholesterolemia, unspecified; F41.9 Anxiety disorder, unspecified; E03.9 Hypothyroidism, unspecified; G89.29 Other chronic pain; M54.9 Dorsalgia, unspecified; F17.210 Nicotine dependence, cigarettes, uncomplicated; Z79.890 Hormone replacement therapy; Z79.01 Long term (current) use of anticoagulants; Z79.899 Other long term (current) drug therapy; Z79.891 Long term (current) use of opiate analgesic
CPT/HCPCS: 36415; 71045; 80053; 83735; 83874; 83880; 84484; 85025; 85610; 85730; 86141; 93005; 93041

== ENCOUNTER → 2021-04-07 | Outpatient (CLI) | payer MEDICAID, OTHER | LOC: CARD 11:00 | PROVIDERS: ATTEND Internal Medicine Cardiovascular Disease | DX: I07.1 Rheumatic tricuspid insufficiency (principal) | CPT/HCPCS: 93306 ==

== ENCOUNTER 2021-04-26 22:34 | Emergency (ER) | payer MEDICAID ==
[~2021-04-26] VITALS: Ht 183 cm; Wt 94.0 kg
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
[2021-04-26] MEDS ORDERED: ONDANSETRON 4 MG/2 ML (SDV) Z0FRAN IVP ONE (23:00)
[2021-04-26] MEDS ORDERED: NS IV 1000 ML 1,000 ML IV SCH (23:00)
[2021-04-26 23:14] LABS: HEMATOCRIT 33 % (40-54); HEMOGLOBIN 10.3 G/DL (13.3-17.7); MEAN CORPUSCULAR HEMOGLOBIN 21 PG (25-34); MEAN CORPUSCULAR HGB CONC 32 G/DL (32-36); MEAN CORPUSCULAR VOLUME 66 FL (80-99); WHITE BLOOD COUNT 11.5 10^3/uL (4.3-11.0)
[2021-04-26 23:15] LABS: BASOPHILS # (AUTO) 0.1 10^3/uL (0.0-0.1); BASOPHILS % (AUTO) 1 % (0-10); EOSINOPHILS # (AUTO) 0.4 10^3/uL (0.0-0.3); EOSINOPHILS % (AUTO) 4 % (0-10); LYMPHOCYTES # (AUTO) 1.3 X 10^3 (1.0-4.0); LYMPHOCYTES % (AUTO) 11 % (12-44); MEAN PLATELET VOLUME 10.1 FL (7.4-10.4); MONOCYTES # (AUTO) 1.5 X 10^3 (0.0-1.0); MONOCYTES % (AUTO) 13 % (0-12); NEUTROPHILS # (AUTO) 8.2 X 10^3 (1.8-7.8); NEUTROPHILS % (AUTO) 71 % (42-75); PLATELET COUNT 508 10^3/uL (130-400)
[2021-04-26] MEDS ORDERED: ONDA4TAB11 PO (23:26)
[2021-04-26] MEDS ORDERED: FAMO-119 PO (23:26)
[2021-04-26 23:33] LABS: ALBUMIN 3.8 GM/DL (3.2-4.5); BILIRUBIN,TOTAL 0.8 MG/DL (0.1-1.0); CALCIUM 8.9 MG/DL (8.5-10.1); CREATININE SERUM 1.17 MG/DL (0.60-1.30); POTASSIUM 3.9 MMOL/L (3.6-5.0); TOTAL PROTEIN 6.9 GM/DL (6.4-8.2)
[2021-04-26 23:50] VITALS: BP 112/70
== END 2021-04-26 23:52 | disposition home or self-care (01) ==
LOC: EDUNIT# 22:34 → ER FS 22:37
DX: R11.0 Nausea (principal); R10.13 Epigastric pain; R74.8 Abnormal levels of other serum enzymes; I10 Essential (primary) hypertension; G89.29 Other chronic pain; M54.9 Dorsalgia, unspecified; E78.00 Pure hypercholesterolemia, unspecified; I48.91 Unspecified atrial fibrillation; E03.9 Hypothyroidism, unspecified; Z86.718 Personal history of other venous thrombosis and embolism; Z86.711 Personal history of pulmonary embolism; Z79.891 Long term (current) use of opiate analgesic; Z79.01 Long term (current) use of anticoagulants; Z79.899 Other long term (current) drug therapy; Z79.890 Hormone replacement therapy
CPT/HCPCS: 36415; 80053; 83690; 85025

== ENCOUNTER 2021-07-19 17:43 | Emergency (ER) | payer MEDICAID ==
[~2021-07-19] VITALS: Ht 183 cm; Wt 90.7 kg
[~2021-07-19 17:43] MED LIST changes: +DOXY100C5 PO; +FAMO-119 PO; +LEVO75CA5 PO; +ONDA4TAB11 PO
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
[2021-07-19 18:08] LABS: BASOPHILS # (AUTO) 0.1 10^3/uL (0.0-0.1); BASOPHILS % (AUTO) 1 % (0-10); EOSINOPHILS # (AUTO) 0.9 10^3/uL (0.0-0.3); EOSINOPHILS % (AUTO) 6 % (0-10); HEMATOCRIT 40 % (40-54); HEMOGLOBIN 13.1 g/dL (13.3-17.7); LYMPHOCYTES # (AUTO) 1.8 10^3/uL (1.0-4.0); LYMPHOCYTES % (AUTO) 13 % (12-44); MEAN CORPUSCULAR HEMOGLOBIN 23 pg (25-34); MEAN CORPUSCULAR HGB CONC 32 g/dL (32-36); MEAN CORPUSCULAR VOLUME 72 fL (80-99); MONOCYTES # (AUTO) 1.4 10^3/uL (0.0-1.0); MONOCYTES % (AUTO) 10 % (0-12); NEUTROPHILS # (AUTO) 9.5 10^3/uL (1.8-7.8); NEUTROPHILS % (AUTO) 70 % (42-75); PLATELET COUNT 633 10^3/uL (130-400); WHITE BLOOD COUNT 13.6 10^3/uL (4.3-11.0)
[2021-07-19] MEDS ORDERED: ALPRAZolam 0.5 MG (XANAX) TAB ONE (18:09)
[2021-07-19] MEDS ORDERED: ALPRAZolam 1 MG (XANAX) TAB PO ONE (18:15)
[2021-07-19] MEDS ORDERED: ASPIRIN 81 MG CHEW (CHILDREN'S ASA) PO ONE (18:15)
[2021-07-19 18:17] LABS: ALBUMIN 4.3 GM/DL (3.2-4.5); POTASSIUM 4.1 MMOL/L (3.6-5.0)
[2021-07-19 18:18] LABS: CALCIUM 9.9 MG/DL (8.5-10.1)
[2021-07-19 18:20] LABS: INR 1.2 (0.8-1.4); PROTHROMBIN TIME PATIENT 15.4 SEC (12.2-14.7); TOTAL PROTEIN 7.6 GM/DL (6.4-8.2)
[2021-07-19 18:21] LABS: BILIRUBIN,TOTAL 0.8 MG/DL (0.1-1.0)
[2021-07-19 18:23] LABS: CREATININE SERUM 1.33 MG/DL (0.60-1.30)
[2021-07-19 18:26] LABS: EOSINOPHILS % (MANUAL) 7 %; LYMPHOCYTES % (MANUAL) 14 %; MAGNESIUM 1.9 MG/DL (1.6-2.4); MONOCYTES % (MANUAL) 11 %; NEUTROPHILS % (MANUAL) 68 %
[2021-07-19 18:27] LABS: ACANTHOCYTES MARKED; TARGET CELLS SLIGHT
--- NOTE | 2021-07-19 18:59 | Diagnostic Imaging Report ---
EXAMINATION: Chest 1 view. HISTORY: Chest pain. COMPARISON: 05/31/2021. FINDINGS: There is mild atelectasis in the lung bases. No pleural effusion or pneumothorax. Heart size is normal. IMPRESSION: Mild atelectasis in the lung bases. Dictated by: Dictated on workstation # [id number]
[2021-07-19] MEDS ORDERED: cefTRIAXone 1,000 MG in WATER (STERILE) FOR INJECTION 10 ML IV ONE (19:15)
[2021-07-19] MEDS ORDERED: RX-ALBUTEROL INHALER 8.5 GM HFA (PROAIR) IH STA (19:16)
[2021-07-19] MEDS ORDERED: CEFD300C3 PO (19:16)
[2021-07-19 19:43] VITALS: BP 103/84
== END 2021-07-19 19:43 | disposition home or self-care (01) ==
LOC: EDUNIT# 17:43 → ER 17:46
DX: J18.9 Pneumonia, unspecified organism (principal); I10 Essential (primary) hypertension; E78.00 Pure hypercholesterolemia, unspecified; I48.91 Unspecified atrial fibrillation; E03.9 Hypothyroidism, unspecified; F41.9 Anxiety disorder, unspecified; Z86.711 Personal history of pulmonary embolism; Z86.718 Personal history of other venous thrombosis and embolism; Z79.01 Long term (current) use of anticoagulants; Z79.890 Hormone replacement therapy; Z79.899 Other long term (current) drug therapy
CPT/HCPCS: 36415; 71045; 80053; 83735; 83874; 83880; 84484; 85007; 85027; 85610; 85730; 93005; 93041

== ENCOUNTER 2021-08-23 19:47 | Emergency (ER) | payer MEDICAID ==
[~2021-08-23] VITALS: Ht 183 cm; Wt 91.0 kg
[~2021-08-23 19:47] MED LIST changes: -AMIO200T6 PO; +AMIO200T65 PO; +CEFD300C3 PO; +CYCL10TA25; +CYCL10TA25 PO; -CYCL10TA9; -CYCL10TA9 PO; -LISI-729 PO; +LISI5TAB20 PO; +POTA-160 PO; -POTA10TA6 PO
[2021-08-23 20:14] LABS: BASOPHILS # (AUTO) 0.1 10^3/uL (0.0-0.1); BASOPHILS % (AUTO) 1 % (0-10); EOSINOPHILS # (AUTO) 0.6 10^3/uL (0.0-0.3); EOSINOPHILS % (AUTO) 5 % (0-10); HEMATOCRIT 39 % (40-54); HEMOGLOBIN 12.6 g/dL (13.3-17.7); LYMPHOCYTES # (AUTO) 1.8 10^3/uL (1.0-4.0); LYMPHOCYTES % (AUTO) 13 % (12-44); MEAN CORPUSCULAR HEMOGLOBIN 24 pg (25-34); MEAN CORPUSCULAR HGB CONC 32 g/dL (32-36); MEAN CORPUSCULAR VOLUME 74 fL (80-99); MONOCYTES # (AUTO) 1.5 10^3/uL (0.0-1.0); MONOCYTES % (AUTO) 11 % (0-12); NEUTROPHILS # (AUTO) 9.3 10^3/uL (1.8-7.8); NEUTROPHILS % (AUTO) 69 % (42-75); PLATELET COUNT 573 10^3/uL (130-400); WHITE BLOOD COUNT 13.4 10^3/uL (4.3-11.0)
[2021-08-23] MEDS ORDERED: ASPIRIN 81 MG CHEW (CHILDREN'S ASA) PO ONE (20:15)
[2021-08-23] MEDS ORDERED: dilTIAZem DRIP PRE-MIX 125 ML IV SCH (20:15)
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
[2021-08-23 20:23] LABS: INR 1.3 (0.8-1.4); PROTHROMBIN TIME PATIENT 16.2 SEC (12.2-14.7)
[2021-08-23 20:35] LABS: BILIRUBIN,TOTAL 0.6 MG/DL (0.1-1.0); CALCIUM 9.8 MG/DL (8.5-10.1); CREATININE SERUM 1.54 MG/DL (0.60-1.30); MAGNESIUM 2.1 MG/DL (1.6-2.4); POTASSIUM 4.1 MMOL/L (3.6-5.0); TOTAL PROTEIN 7.3 GM/DL (6.4-8.2)
--- NOTE | 2021-08-23 20:40 | Diagnostic Imaging Report ---
INDICATION: Chest pain. TECHNIQUE: Single view chest 8:15 PM. CORRELATION STUDY: 07/19/2021. FINDINGS: Heart size and mediastinum appear generally stable. No evidence of overt failure. Perhaps minimal basilar atelectasis at both lung bases superimposed on chronic changes of the lung parenchyma. Surgical clips in left upper quadrant. IMPRESSION: Perhaps minimal basilar atelectasis. Otherwise stable chest demonstrates no acute abnormality. Dictated by: Dictated on workstation # [id number]
[2021-08-23] MEDS: NS IV 500 ML 500 ML IV SCH ×2 (21:21→21:32)
[2021-08-23 21:25] VITALS: BP 119/103
== END 2021-08-23 21:25 | disposition left against medical advice (07) ==
LOC: EDUNIT# 19:47 → ER 19:48
DX: I48.91 Unspecified atrial fibrillation (principal); I10 Essential (primary) hypertension; E03.9 Hypothyroidism, unspecified; E78.00 Pure hypercholesterolemia, unspecified; F41.9 Anxiety disorder, unspecified; F32.9 Major depressive disorder, single episode, unspecified; G43.909 Migraine, unspecified, not intractable, without status migrainosus; Z86.718 Personal history of other venous thrombosis and embolism; Z86.711 Personal history of pulmonary embolism; Z79.01 Long term (current) use of anticoagulants; Z79.890 Hormone replacement therapy; Z79.899 Other long term (current) drug therapy
CPT/HCPCS: 36415; 71045; 80053; 83735; 83874; 83880; 84484; 85025; 85610; 85730; 93005; 93041

== ENCOUNTER 2021-09-05 18:27 | Inpatient (IN) | payer MEDICAID ==
[~2021-09-05] VITALS: Ht 182.8 cm; Wt 95.0 kg
[2021-09-05] VITALS (7 sets, daily range): BP systolic 114–154; BP diastolic 74–87
[~2021-09-05 18:27] MED LIST changes: +PRD10T PO
[2021-09-05] MEDS ORDERED: NITROGLYCERIN 0.4 MG SL TABS BTL 25'S SL PRN ×2 (19:00→19:45)
[2021-09-05] MEDS ORDERED: ASPIRIN 81 MG CHEW (CHILDREN'S ASA) PO ONE (19:00)
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
[2021-09-05 19:11] LABS: BASOPHILS % (AUTO) 0 % (0-10); EOSINOPHILS % (AUTO) 0 % (0-10); HEMATOCRIT 34 % (40-54); HEMOGLOBIN 11.2 g/dL (13.3-17.7); LYMPHOCYTES # (AUTO) 0.4 10^3/uL (1.0-4.0); LYMPHOCYTES % (AUTO) 1 % (12-44); MEAN CORPUSCULAR HEMOGLOBIN 24 pg (25-34); MEAN CORPUSCULAR HGB CONC 33 g/dL (32-36); MEAN CORPUSCULAR VOLUME 74 fL (80-99); MEAN PLATELET VOLUME 9.8 fL (9.0-12.2); MONOCYTES # (AUTO) 1.3 10^3/uL (0.0-1.0); MONOCYTES % (AUTO) 5 % (0-12); NEUTROPHILS # (AUTO) 23.3 10^3/uL (1.8-7.8); NEUTROPHILS % (AUTO) 93 % (42-75); PLATELET COUNT 491 10^3/uL (130-400); WHITE BLOOD COUNT 25.1 10^3/uL (4.3-11.0)
[2021-09-05 19:31] LABS: FIBRIN DEGRADATION PRODUCTS <= 0.27 UG/ML (0.00-0.49); INR 1.3 (0.8-1.4); PARTIAL THROMBOPLASTIN TIME 29 SEC (24-35); PROTHROMBIN TIME PATIENT 16.5 SEC (12.2-14.7)
[2021-09-05 19:37] LABS: ERYTHROCYTE SEDIMENTATION RATE 11 MM/HR (0-30)
[2021-09-05 19:39] LABS: ALANINE AMINOTRANSFERASE 24 U/L (0-55); ALBUMIN 3.9 GM/DL (3.2-4.5); ALKALINE PHOSPHATASE 212 U/L (40-136); AMYLASE 33 U/L (25-125); BILIRUBIN,TOTAL 1.1 MG/DL (0.1-1.0); BUN/CREATININE RATIO 17; CALCIUM 9.7 MG/DL (8.5-10.1); CARBON DIOXIDE 20 MMOL/L (21-32); CHLORIDE 105 MMOL/L (98-107); CREATINE KINASE 43 U/L (30-200); CREATINE KINASE MB 1.8 NG/ML (<6.6); CREATININE SERUM 1.26 MG/DL (0.60-1.30); GFR ESTIMATED 58; GLUCOSE 116 MG/DL (70-105); LIPASE 15 U/L (8-78); POTASSIUM 4.5 MMOL/L (3.6-5.0); SODIUM 138 MMOL/L (135-145); TOTAL PROTEIN 7.2 GM/DL (6.4-8.2)
[2021-09-05 19:40] LABS: LYMPHOCYTES % (MANUAL) 2 %; NEUTROPHILS % (MANUAL) 98 %
[2021-09-05 19:41] LABS: ACANTHOCYTES SLIGHT
--- NOTE | 2021-09-05 19:43 | Diagnostic Imaging Report ---
Portable AP chest at 7:42. Indication: Tachycardia The heart size is stable when compared to the prior exam of 08/23/2021. The previous study did suggest that there was perhaps minimal bibasilar atelectasis. Those findings are again evident and do not seem to have changed significantly. The upper lungs are generally clear. The central pulmonary vascularity does not appear to be engorged. The mediastinum is not widened. The osseous structures are intact. Impression: Stable chest. There has been no significant change since the prior exam. Dictated by: Dictated on workstation # [id number]
[2021-09-05 19:58] LABS: BILIRUBIN,URINE NEGATIVE (NEGATIVE); CLARITY,URINE CLEAR; COLOR,URINE YELLOW; GLUCOSE, URINE (UA) NEGATIVE (NEGATIVE); KETONES,URINE NEGATIVE (NEGATIVE); LEUKOCYTE ESTERASE ,URINE NEGATIVE (NEGATIVE); NITRITE,URINE NEGATIVE (NEGATIVE); PROTEIN,URINE NEGATIVE (NEGATIVE)
[2021-09-05 20:16] LABS: AMPHETAMINE SCREEN, URINE NEGATIVE (NEGATIVE); BARBITURATE SCREEN URINE NEGATIVE (NEGATIVE); BENZODIAZEPINES SCREEN URINE POSITIVE (NEGATIVE); CANNABINOID SCREEN, URINE NEGATIVE (NEGATIVE); COCAINE SCREEN URINE NEGATIVE (NEGATIVE); METHADONE STAT NEGATIVE (NEGATIVE); METHAMPHETAMINE SCREEN URINE S NEGATIVE (NEGATIVE); OPIATE SCREEN URINE NEGATIVE (NEGATIVE); OXYCODONE STAT NEGATIVE (NEGATIVE); PROPOXYPHENE STAT NEGATIVE (NEGATIVE); TRICYCLIC ANTIDEPRESSANTS SCRE NEGATIVE (NEGATIVE)
[2021-09-05 20:22] LABS: AMORPHOUS SEDIMENT,UR RARE AMOR URATES /LPF; BACTERIA,URINE NEGATIVE /HPF; WBC,URINE RARE /HPF
[2021-09-05] MEDS ORDERED: PATIENT MAY USE OWN MEDS, ALL PO SCH (20:45)
[2021-09-05] MEDS ORDERED: LOSA25TA2 PO (22:06)
[2021-09-05] MEDS ORDERED: OMEP20CA18 PO (22:06)
[2021-09-05] MEDS: ALPRAZolam 1 MG (XANAX) TAB PO PRN (22:46)
[2021-09-05] MEDS: APIXABAN 5 MG (ELIQUIS) TABLET PO SCH (22:47)
[2021-09-06 00:38] VITALS: BP 106/73
[2021-09-06 04:00] VITALS: BP 101/69
[2021-09-06] MEDS: LEVOTHYROXINE 75 MCG (LEVOTHROID) TABLET PO SCH (05:38)
[2021-09-06 08:00] VITALS: BP 133/83
[2021-09-06] MEDS: APIXABAN 5 MG (ELIQUIS) TABLET PO SCH ×2 (08:04→21:07)
[2021-09-06] MEDS ORDERED: APIXABAN 5 MG (ELIQUIS) TABLET PO SCH (09:00)
[2021-09-06] MEDS ORDERED: lisINopril 5 MG (PRINIVIL) TABLET PO SCH (09:00)
[2021-09-06 09:20] LABS: HEMATOCRIT 33 % (40-54); HEMOGLOBIN 11.1 g/dL (13.3-17.7); MEAN CORPUSCULAR HEMOGLOBIN 25 pg (25-34); MEAN CORPUSCULAR HGB CONC 33 g/dL (32-36); MEAN CORPUSCULAR VOLUME 74 fL (80-99); MEAN PLATELET VOLUME 10.4 fL (9.0-12.2); PLATELET COUNT 466 10^3/uL (130-400); WHITE BLOOD COUNT 23.4 10^3/uL (4.3-11.0)
[2021-09-06 09:25] LABS: ALBUMIN 3.6 GM/DL (3.2-4.5)
[2021-09-06 09:26] LABS: POTASSIUM 4.1 MMOL/L (3.6-5.0)
[2021-09-06 09:27] LABS: CALCIUM 9.3 MG/DL (8.5-10.1)
[2021-09-06 09:28] LABS: TOTAL PROTEIN 6.6 GM/DL (6.4-8.2)
[2021-09-06 09:30] LABS: BILIRUBIN,TOTAL 0.9 MG/DL (0.1-1.0)
[2021-09-06 09:32] LABS: CREATININE SERUM 1.18 MG/DL (0.60-1.30)
--- NOTE | 2021-09-06 11:28 | Consultation-Cardiology ---
HPI-Cardiology Cardiology Consultation: Date of Consultation 09/06/21 Time Seen by a Provider: 11:00 Date of Admission Attending Physician Nahomi Flores MD Admitting Physician [facility] Consulting Physician KAYLAN FULTON MD, MA, FACP, FACC, [facility], CCDS HPI: Chief Complaint: CC: continuous chest discomfort, difficulty swallowing, and intermittent palpitations HPI 60 yo man who is approx 10 days out from his second A Fib ablation that was done at [facility] in or around 08/27/21. Has had continuous chest discomfort since then that is located in the L parasternal area, varies from sharp to dull, from mild to mod, and does not radiate. It is sometimes worse with breathing. Overall, this has very slowly been improving, but he has started to have a feeling of intermittent palpitations for the past two days. That, he says, what brought him to the ER because he was concerned he has recurrence of A Fib. These episodes have been lasting several minutes and pulse rate has been up to 130, he says. No syncope. Now swelling. Does report discomfort in the L groin at the site of vascular access for A Fib ablation in the L groin. He also reports that he has had significant swallowing difficulty since the last ablation procedure. He is not sure if that has improved very slightly over the course of last several days. Denies fever or chills Review of Systems-Cardiology Review of Systems Constitutional: malaise; No weight loss, No weight gain Eyes: No vision change Ears/Nose/Throat: No ear discharge, No nasal drainage, No recent hearing loss Respiratory: As described under HPI Cardiovascular: As described under HPI Gastrointestinal: No diarrhea, No nausea, No vomiting Genitourinary: No dysuria, No hematuria, No urine frequency changes Musculoskeletal: neck pain (chronic) Skin: No rash, No ulcerations Psychiatric/Neurological: No seizure, No focal weakness, No syncope Hematologic: No bleeding abnormalities [id number] Hx Patient Social History Smoking Status: Former Smoker 2nd Hand Smoke Exposure: No Have you traveled recently?: No Alcohol Use?: No Substance type: Opiates/Opioids, Misuse of prescript meds Pt feels they are or have been: No Tobacco type used: Cigarettes Immunizations Up To Date Tetanus Booster (TDap): Unknown Date of Pneumonia Vaccine: Jul 21, 2018 Date of Influenza Vaccine: Jul 21, 2021 Past Medical History PMH As described under Assessment. Family Medical History Family Medical History: He does not report any family h/o CAD. Family History: FH: emphysema 19 MOTHER FH: lung cancer 19 FATHER Allergies and Home Medications Allergies Coded Allergies: Iodinated Contrast Media (Verified Allergy, Unknown, 11/14/20) Patient Home Medication List Home Medication List Reviewed: Yes Alprazolam (Xanax) 1 Mg Tablet, 1 MG PO BID PRN for ANXIETY Prescribed by: JUAN MANUEL EVANS on 01/22/21 1326 Last Action: Continued Apixaban (Eliquis) 5 Mg Tablet, 5 MG PO BID, (Reported) Entered as Reported by: TAN OTT on 09/24/17 0825 Last Action: Continued Atorvastatin Calcium (Atorvastatin Calcium) 40 Mg Tablet, 40 MG PO DAILY, ( Reported) Entered as Reported by: NANDINI COOK on 03/11/202040 Last Action: Continued Levothyroxine Sodium (Levothyroxine) 75 Mcg Capsule, 75 MCG PO DAILY, (Reported) Entered as Reported by: MAAME HOUSTON on 06/01/21 0540 Last Action: Converted Lisinopril (Lisinopril) 5 Mg Tablet, 5 MG PO DAILY Prescribed by: GEOVANNA LOCKE on 01/22/211309 Last Action: Continued Losartan Potassium (Cozaar) 25 Mg Tablet, 12.5 MG PO DAILY, (Reported) Entered as Reported by: NAHOMI FLORES on 09/05/212205 Last Action: New Order Metoprolol Succinate (Metoprolol Succinate) 25 Mg Tab.er.24h, 25 MG PO DAILY Prescribed by: GEOVANNA LOCKE on 01/22/211309 Last Action: Continued Omeprazole (Omeprazole) 20 Mg Capsule.dr, 20 MG PO DAILY, (Reported) Entered as Reported by: NAHOMI FLORES on 09/05/212205 Last Action: New Order Oxycodone HCl (Oxycodone HCl) 10 Mg Tablet, 10 MG PO Q6H PRN for PAIN-SEVERE (8- 10), (Reported) Entered as Reported by: DALILA VERAS on 03/12/20 1547 Last Action: Converted Prednisone (Prednisone) 10 Mg Tab, 0 PO UD, (Reported) Entered as Reported by: NAHOMI FLORES on 09/05/212206 Last Action: Reviewed Discontinued Medications Cefdinir (Cefdinir) 300 Mg Capsule, 300 MG PO BID Prescribed by: BRENDA MORRIS on 07/19/211915 Last Action: Discontinued Flecainide Acetate (Flecainide Acetate) 100 Mg Tablet, 100 MG PO DAILY, (Reported) Entered as Reported by: MAAME HOUSTON on 06/01/21 0540 Last Action: Discontinued Physical Exam-Cardiology Physical Exam Vital Signs/I&O 09/05/21 09/06/21 09/06/21 09/06/21 23:31 00:38 01:01 04:00 Temp 36.6 36.2 36.4 Pulse 81 93 84 79 Resp 18 18 20 B/P (MAP) 114/74 (87) 106/73 (84) 101/69 (80) Pulse Ox 97 97 97 O2 Delivery Room Air Room Air Room Air 09/06/21 09/06/21 09/06/21 07:00 08:00 08:00 Temp 36.5 Pulse 81 80 Resp 20 B/P (MAP) 133/83 (100) Pulse Ox 98 O2 Delivery Room Air Room Air 09/06/21 00:00 Intake Total 100 ml Output Total 225 ml Balance -125 ml Capillary Refill : Less Than 3 Seconds Constitutional: AAO x 3, well-developed HEENT: PERRL, other, EOMI, hard of hearing (mild) Neck: carotid pulses are 2 + bilaterally Respiratory: No accessory muscle use; other (good, bilateral air entry) Cardiovascular: regular rate-rhythm, S1 and S2, systolic murmur (soft GRISELDA at card base) Gastrointestinal: No tender; soft; No guarding, No rebound; audible bowel sounds Extremities: No clubbing, No cyanosis, No significant edema Neurologic/Psychiatric: oriented x 3, other (moves all limbs equally) Skin: No rash on exposed areas, No ulcerations on exposed areas Data Review Labs Laboratory Tests 09/05/21 18:56: Procalcitonin 0.05 09/05/21 19:00: White Blood Count 25.1H, Red Blood Count 4.64, Hemoglobin 11.2L, Hematocrit 34L, Mean Corpuscular Volume 74L, Mean Corpuscular Hemoglobin 24L, Mean Corpuscular Hemoglobin Concent 33, Red Cell Distribution Width 17.9H, Platelet Count 491H, Mean Platelet Volume 9.8, Immature Granulocyte % (Auto) 1, Neutrophils (%) ( Auto) 93H, Lymphocytes (%) (Auto) 1L, Monocytes (%) (Auto) 5, Eosinophils (%) (Auto) 0, Basophils (%) (Auto) 0, Neutrophils # (Auto) 23.3H, Lymphocytes # (Auto) 0.4L, Monocytes # (Auto) 1.3H, Eosinophils # (Auto) 0.0, Basophils # (Auto) 0.0, Immature Granulocyte # (Auto) 0.2H, Neutrophils % (Manual) 98, Lymphocytes % (Manual) 2, Acanthocytes SLIGHT, Erythrocyte Sedimentation Rate 11 , Prothrombin Time 16.5H, INR Comment 1.3, Activated Partial Thromboplast Time 29, D-Dimer <= 0.27, Sodium Level 138, Potassium Level 4.5, Chloride Level 105, Carbon Dioxide Level 20L, Anion Gap 13, Blood Urea Nitrogen 21H, Creatinine 1. 26, Estimat Glomerular Filtration Rate 58, BUN/Creatinine Ratio 17, Glucose Level 116H, Calcium Level 9.7, Corrected Calcium 9.8, Magnesium Level 2.0, Total Bilirubin 1.1H, Aspartate Amino Transf (AST/SGOT) 21, Alanine Aminotransferase (ALT/SGPT) 24, Alkaline Phosphatase 212H, Lactate Dehydrogenase 243H, Total Crea della Kinase 43, Creatine Kinase MB 1.8, Myoglobin 84.0, Troponin I 0.212H, C- Reactive Protein High Sensitivity 0.65H, B-Type Natriuretic Peptide 1331.0H, Total Protein 7.2, Albumin 3.9, Amylase Level 33, Lipase 15, Serum Alcohol < 10 09/05/21 19:08: Influenza Type A (RT-PCR) Not Detected, Influenza Type B (RT-PCR) Not Detected, SARS-CoV-2 RNA (RT-PCR) Not Detected 09/05/21 19:25: Lactic Acid Level 1.77 09/05/21 19:53: Urine Color YELLOW, Urine Clarity CLEAR, Urine pH 6.0, Urine Specific [place] 1.015L, Urine Protein NEGATIVE, Urine Glucose (UA) NEGATIVE, Urine Ketones NEGATIVE, Urine Nitrite NEGATIVE, Urine Bilirubin NEGATIVE, Urine Urobilinogen 0.2, Urine Leukocyte Esterase NEGATIVE, Urine RBC (Auto) NEGATIVE, Urine RBC NONE, Urine WBC RARE, Urine Crystals PRESENTH, Urine Amorphous Sediment RARE RAFY URATESH, Urine Bacteria NEGATIVE, Urine Casts NONE, Urine Mucus NEGATIVE, Urine Culture Indicated CULTURE PENDING, Urine Opiates Screen NEGATIVE, Urine Oxycodone Screen NEGATIVE, Urine Methadone Screen NEGATIVE, Urine Propoxyphene Screen NEGATIVE, Urine Barbiturates Screen NEGATIVE, Ur Tricyclic Antidepressants Screen NEGATIVE, Urine Phencyclidine Screen NEGATIVE, Urine Amphetamines Screen NEGATIVE, Urine Methamphetamines Screen NEGATIVE, Urine Benzodiazepines Screen POSITIVEH, Urine Cocaine Screen NEGATIVE, Urine Cannabinoids Screen NEGATIVE 09/05/21 19:57: Group A Streptococcus Screen NEGATIVE 09/06/21 00:20: Troponin I 0.245H 09/06/21 09:02: White Blood Count 23.4H, Red Blood Count 4.51, Hemoglobin 11.1L, Hematocrit 33L, Mean Corpuscular Volume 74L, Mean Corpuscular Hemoglobin 25, Mean Corpuscular Hemoglobin Concent 33, Red Cell Distribution Width 18.1H, Platelet Count 466H, Mean Platelet Volume 10.4, Sodium Level 138, Potassium Level 4.1, Chloride Level 108H, Carbon Dioxide Level 21, Anion Gap 9, Blood Urea Nitrogen 25H, Creatinine 1.18, Estimat Glomerular Filtration Rate 63, BUN/Creatinine Ratio 21, Glucose Level 131H, Calcium Level 9.3, Corrected Calcium 9.6, Total Bilirubin 0.9, Aspartate Amino Transf (AST/SGOT) 22, Alanine Aminotransferase (ALT/SGPT) 24, Alkaline Phosphatase 202H, Total Protein 6.6, Albumin 3.6 Laboratory Tests 09/05/21 19:00 09/06/21 09:02 A/P-Cardiology Assessment/Admission Diagnosis Chest discomfort since A Fib ablation at [facility] in or around 09/06/21, post-ablation pericarditis suspected - Echo on 09/06/21: No pericard eff, LVEF 40-45%, mod conc LVH, RV and biatrial enlargement, trivial MR, PASP 40-45 mmHg Marked leucocytosis of undetermined etiology - Med Svce managing Dysphagia after A Fib ablation of Aug 2021, possibly related to pharyngeal/esophageal injury from intubation - Med Svce managing Minimal troponin elevation - type 2 [place], likely related to recurrent episodes of PAF and ablation of PAF in Aug 2021 Dilated cardiomyopathy with mild, [id number] systolic CHF - Echo n 01/21/21: LVEF 35-40%, enlargement of atria and RV (mild), mild to mod MR, severe TR, PASP 25-30 mmHg - Echo on 09/06/21: No pericard eff, LVEF 40-45%, mod conc LVH, RV and biatrial enlargement, trivial MR, PASP 40-45 mmHg PAF - s/p ablation by Dr Rodriguez at [facility] in 2018 or 2019; pt reports to have had recurrence in February 2020 - s/p second ablation at [facility] in Aug 2021 - OAC with Eliquis H/O PE and DVT in the past per report Mild CAD consisting of mild to mod dz of the LAD that has been unchanged on card caths of 2014, 2017, and 2018 Microcytic, hypochromic anemia of undetermined etiology, managed by the Med svce Perforation of the left posterior rectum approximately 9.2 cm from the anal verge, per CT of the abdomen on 11-03-20, associated with GI bleed - managed by Dr. Borrero Hep C + H/O left-sided colon resection H/O splenectomy Discussion and Recomendations * Monitor on tele * Increase beta-diana * Continue oral anticoag * Med Svce to eval and treat leucocytosis and dysphagia * Monitor labs Clinical Quality Measures AMI/AHF: ASA po Prior to arrival: KAYLAN Kelly MD [facility] Sep 06, 2021 11:28
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
[2021-09-06 12:00] VITALS: BP 161/92
[2021-09-06] MEDS ORDERED: predniSONE 20 MG TAB PO ONE (12:00)
[2021-09-06 16:21] VITALS: BP 123/82
[2021-09-06] MEDS: CHLORASEPTIC LOZENGE MM PRN ×2 (16:22→20:12)
[2021-09-06 20:00] VITALS: BP 127/81
[2021-09-06] MEDS: ALPRAZolam 1 MG (XANAX) TAB PO PRN (21:07)
[2021-09-07 01:00] VITALS: BP 122/84
[2021-09-07] MEDS: CHLORASEPTIC LOZENGE MM PRN ×2 (02:59→11:40)
[2021-09-07 04:27] VITALS: BP 125/86
[2021-09-07 06:01] LABS: BASOPHILS % (AUTO) 0 % (0-10); EOSINOPHILS % (AUTO) 0 % (0-10); HEMATOCRIT 34 % (40-54); HEMOGLOBIN 10.8 g/dL (13.3-17.7); LYMPHOCYTES # (AUTO) 0.8 10^3/uL (1.0-4.0); LYMPHOCYTES % (AUTO) 4 % (12-44); MEAN CORPUSCULAR HEMOGLOBIN 24 pg (25-34); MEAN CORPUSCULAR HGB CONC 32 g/dL (32-36); MEAN CORPUSCULAR VOLUME 75 fL (80-99); MEAN PLATELET VOLUME 10.8 fL (9.0-12.2); MONOCYTES % (AUTO) 6 % (0-12); NEUTROPHILS # (AUTO) 15.9 10^3/uL (1.8-7.8); NEUTROPHILS % (AUTO) 90 % (42-75); PLATELET COUNT 461 10^3/uL (130-400); WHITE BLOOD COUNT 17.8 10^3/uL (4.3-11.0)
[2021-09-07 06:17] LABS: POTASSIUM 4.8 MMOL/L (3.6-5.0)
[2021-09-07 06:18] LABS: CALCIUM 8.7 MG/DL (8.5-10.1)
[2021-09-07 06:22] LABS: CREATININE SERUM 1.2 MG/DL (0.60-1.30)
[2021-09-07] MEDS: LEVOTHYROXINE 75 MCG (LEVOTHROID) TABLET PO SCH (06:48)
[2021-09-07] MEDS ORDERED: METO50TA7 PO (07:50)
[2021-09-07 08:00] VITALS: BP 137/90
[2021-09-07] MEDS: APIXABAN 5 MG (ELIQUIS) TABLET PO SCH (08:37)
[2021-09-07] MEDS ORDERED: meTOproloL SUCCINATE 50 MG (TOPROL XL) TAB PO SCH (09:00)
[2021-09-07] MEDS: ALPRAZolam 1 MG (XANAX) TAB PO PRN (09:57)
--- NOTE | 2021-09-07 11:10 | Discharge Summary ---
Discharge Summary Hospital Course Problems/Diagnosis: (1) Elevated troponin Status: Acute Assessment & Plan: Cardiology consulted, appreciate recommendations. Stable, suspect related to recent ablation. Echo done and showed EF 45-50%, no other acute significant abnormalities. (2) Leukocytosis Status: Acute Assessment & Plan: CXR without clear evidence of infection, urine with no obvious infection, culture pending. Possibly secondary to steroid use, monitor closely given history of asplenia. 09/07- trended down without antibiotic treatment. (3) Esophageal dysphagia Status: Acute Assessment & Plan: Uncertain etiology, trying to obtain records from [facility] to avoid repeating procedures unnecessarily, currently is able to take medications and eat food. 09/07- reviewed clinic chart and verbal report from [place] was that he had posterior pharynx injury they treated with steroids, will continue those. As for his esophageal dysphagia, that is not addressed, however, he is able to tolerate full meals here, can follow up outpatient for scope as needed. (4) Atrial fibrillation Status: Chronic Assessment & Plan: Increased metoprolol dose. (5) Hypertension Status: Chronic (6) Hyperlipidemia Status: Chronic (7) Hepatitis C Status: Chronic Resolution Date/Time: 11/04/20 @ 17:31 Hospital Course Date of Admission: Sep 05, 2021 at 20:13 Admission Diagnosis : [facility] Date of Discharge: 09/07/21 Discharge Diagnosis: See problem list Hospital Course: From HPI: His story is quite difficult to follow, dates and days change frequently as do the order of different hospitals and the procedures and the order the procedures were done in. Had fast heart rate wednesday, after ablation Wed, and reports that is why he came to the ER, after his primary told him to go in earlier in the day and he did not. Has had sore throat since after procedure, says they told him that his esophagus was torn up and he got put on steroids by primary started on . On further clarification, it sounds like he came to our ER maybe on Aug 22, and then left AMA, went to [facility] and they couldn't get his heart rate down, and he wanted to go to because he has seen Dr. Rodriguez before, but they perhaps were full, the only places they could send him were [place] or [place]. He then went to [facility] on Wed the and after that had the pain and difficulty swallowing after he woke up which he thinks was around Wednesday, maybe and what sounds like an ENT scope who said his throat was torn up. However, he apparently had ablation on Wednesday, so it is unclear how there was a scope or intubation prior to that. He thinks there are a few days in the hospital he doesn't remember, and doesn't know what happened. He saw someone at [facility] on of this week and was started on steroid taper. He vomited a small amount of blood and Wednesday, he thinks maybe from swal lowing blood from the esophageal or throat irritation, has not had any since. He feels he has to push on the base of his throat to get food to go down, but he was able to eat breakfast this morning. See problem list for hospital course Labs and Pending Lab Test: Laboratory Tests 09/07/21 05:20: White Blood Count 17.8H, Red Blood Count 4.51, Hemoglobin 10.8L, Hematocrit 34L, Mean Corpuscular Volume 75L, Mean Corpuscular Hemoglobin 24L, Mean Corpuscular Hemoglobin Concent 32, Red Cell Distribution Width 18.4H, Platelet Count 461H, Mean Platelet Volume 10.8, Immature Granulocyte % (Auto) 1, Neutrophils (%) (Auto) 90H, Lymphocytes (%) (Auto) 4L, Monocytes (%) (Auto) 6, Eosinophils (%) (Auto) 0, Basophils (%) (Auto) 0, Neutrophils # (Auto) 15.9H, Lymphocytes # (Auto) 0.8L, Monocytes # (Auto) 1.0, Eosinophils # (Auto) 0.0, Basophils # (Auto) 0.0, Immature Granulocyte # (Auto) 0.1, Sodium Level 135, Potassium Level 4.8, Chloride Level 104, Carbon Dioxide Level 22, Anion Gap 9, Blood Urea Nitrogen 27H, Creatinine 1.20, Estimat Glomerular Filtration Rate 61, BUN/Creatinine Ratio 23, Glucose Level 109H, Calcium Level 8.7 Microbiology 09/05/21 Blood Culture - Preliminary, Resulted No growth 09/05/21 Throat Culture - Preliminary, Resulted No Beta Strep isolated 09/05/21 Urine Culture - Preliminary, Resulted Slight Growth Present Home Meds Active Metoprolol Succinate 50 Mg Tab.er.24h 50 Mg PO DAILY Xanax (Alprazolam) 1 Mg Tablet 1 Mg PO BID PRN Reported Prednisone 10 Mg Tab 0 PO UD 6 pills day 1, 5 pills day 2, 4 pills day 3, 3 pills day 4, 2 pills day 5, 1 pill day 6 Cozaar (Losartan Potassium) 25 Mg Tablet 12.5 Mg PO DAILY Omeprazole 20 Mg Capsule.dr 20 Mg PO DAILY Levothyroxine (Levothyroxine Sodium) 75 Mcg Capsule 75 Mcg PO DAILY Oxycodone HCl 10 Mg Tablet 10 Mg PO Q6H PRN Atorvastatin Calcium 40 Mg Tablet 40 Mg PO DAILY Eliquis (Apixaban) 5 Mg Tablet 5 Mg PO BID Assessment/Pt DC Instructions Follow up with primary physician within one week of discharge. Follow up with Cardiac manager process improvement as planned. Discharge Diet: Cardiac Diet Activity as Tolerated: Yes Orders-Post D/C & Referrals Pneu Vac Indicated: Yes Discharge Physical Examination Allergies: Coded Allergies: Iodinated Contrast Media (Verified Allergy, Unknown, 11/14/20) General Appearance: No Apparent Distress Respiratory: Lungs Clear, Normal Breath Sounds Cardiovascular: Regular Rate, Rhythm, No Murmur Extremity: No Pedal Edema Skin: Normal Color, Warm/Dry Neurologic/Psychiatric: Alert, Normal Mood/Affect Clinical Quality Measures AMI/AHF: ASA po Prior to arrival: NAHOMI Evans MD Sep 07, 2021 11:10
[2021-09-07] MEDS ORDERED: predniSONE 10 MG TAB PO ONE (12:00)
--- NOTE | 2021-09-07 13:23 | Progress Note - Cardiology ---
Cardiology SOAP Progress Note Subjective: Swallowing better. Able to eat full meals Chest discomfort better. NTG does not help any; only gets dizzy with NTG. Chest discomfort is gradually improving on its own No palp since admission No syncope No swelling Weakness and malaise are better Wishes to go home Objective: I&O/Vital Signs 09/07/21 09/07/21 09/07/21 09/07/21 04:27 07:00 08:00 08:00 Temp 36.6 36.4 Pulse 83 77 75 Resp 19 20 B/P (MAP) 125/86 (99) 137/90 (106) Pulse Ox 97 98 O2 Delivery Room Air Room Air Room Air 09/07/21 00:00 Intake Total 1620 ml Output Total 1125 ml Balance 495 ml Weight (Pounds): 224 Weight (Ounces): 0 Weight (Calculated Kilograms): 101.456126 Constitutional: AAO x 3, well-developed Respiratory: No accessory muscle use; other (good, bilateral air entry) Cardiovascular: regular rate-rhythm, S1 and S2, systolic murmur (soft GRISELDA at card base) Gastrointestional: No tender; soft; No guarding, No rebound; audible bowel sounds Extremities: No clubbing, No cyanosis, No significant edema Neurologic/Psychiatric: oriented x 3, other (moves all limbs equally) Skin: No rash on exposed areas, No ulcerations on exposed areas Results/Procedures: Labs Laboratory Tests 09/07/21 05:20: White Blood Count 17.8H, Red Blood Count 4.51, Hemoglobin 10.8L, Hematocrit 34L, Mean Corpuscular Volume 75L, Mean Corpuscular Hemoglobin 24L, Mean Corpuscular Hemoglobin Concent 32, Red Cell Distribution Width 18.4H, Platelet Count 461H, Mean Platelet Volume 10.8, Immature Granulocyte % (Auto) 1, Neutrophils (%) (Auto) 90H, Lymphocytes (%) (Auto) 4L, Monocytes (%) (Auto) 6, Eosinophils (%) (Auto) 0, Basophils (%) (Auto) 0, Neutrophils # (Auto) 15.9H, Lymphocytes # (Auto) 0.8L, Monocytes # (Auto) 1.0, Eosinophils # (Auto) 0.0, Basophils # (Auto) 0.0, Immature Granulocyte # (Auto) 0.1, Sodium Level 135, Potassium Level 4.8, Chloride Level 104, Carbon Dioxide Level 22, Anion Gap 9, Blood Urea Nitro gen 27H, Creatinine 1.20, Estimat Glomerular Filtration Rate 61, BUN/Creatinine Ratio 23, Glucose Level 109H, Calcium Level 8.7 Microbiology 09/05/21 Blood Culture - Preliminary, Resulted No growth 09/05/21 Throat Culture - Preliminary, Resulted No Beta Strep isolated 09/05/21 Urine Culture - Preliminary, Resulted Slight Growth Present Laboratory Tests 09/05/21 19:00 09/06/21 09:02 09/07/21 05:20 A/P: Assessment: Chest discomfort since A Fib ablation at [facility] in or around 09/06/21, 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 Pt reports improvement Minimal troponin elevation - type 2 MN, likely related to recurrent episodes of PAF and ablation of PAF in Aug 2021 Dilated cardiomyopathy with mild, [id number] systolic CHF - Echo n 01/21/21: LVEF 35-40%, enlargement of atria and RV (mild), mild to mod MR, severe TR, PASP 25-30 mmHg - Echo on 09/06/21: No pericard eff, LVEF 40-45%, mod conc LVH, RV and biatrial enlargement, trivial MR, PASP 40-45 mmHg PAF - s/p ablation by Dr Rodriguez at [facility] in 2018 or 2019; pt reports to have had recurrence in February 2020 - s/p second ablation at [facility] in Aug 2021 - OAC with Eliquis H/O PE and DVT in the past per report Mild CAD consisting of mild to mod dz of the LAD that has been unchanged on card caths of 2014, 2017, and 2018 Microcytic, hypochromic anemia of undetermined etiology, managed by the Med svce Perforation of the left posterior rectum approximately 9.2 cm from the anal verge, per CT of the abdomen on 11-03-20, associated with GI bleed - managed by Dr. Borrero Hep C + H/O left-sided colon resection H/O splenectomy Plan: * Cardiac status appears stable * Discussed with Dr Roach, his primary * Advised outpt cardiology f/u. He says he has apptt with EP in the next 1-2 weeks. For gen cardiology, he is due to see Dr Collins. We have advised him to call Dr Collins office for an early apptt * Monitor labs Clinical Quality Measures AMI/AHF: ASA po Prior to arrival: KAYLAN Kelly MD FACP [facility] CCDS Sep 07, 2021 13:23
[2021-09-08] MEDS ORDERED: predniSONE 20 MG TAB PO ONE (12:00)
[2021-09-09] MEDS ORDERED: predniSONE 10 MG TAB PO ONE (12:00)
== END 2021-09-07 11:59 | disposition home or self-care (01) | DRG 280 ==
LOC: EDUNIT# 18:27 → ER 18:31 → 4TH 20:13
PROVIDERS: ADMIT Family Medicine; ATTEND Family Medicine
DX: I97.190 Other postprocedural cardiac functional disturbances following cardiac surgery (principal); I21.A1 Myocardial infarction type 2; I50.23 Acute on chronic systolic (congestive) heart failure; I31.9 Disease of pericardium, unspecified; I42.0 Dilated cardiomyopathy; D72.829 Elevated white blood cell count, unspecified; T38.0X5A Adverse effect of glucocorticoids and synthetic analogues, initial encounter; R13.10 Dysphagia, unspecified; I48.0 Paroxysmal atrial fibrillation; D50.9 Iron deficiency anemia, unspecified; B19.20 Unspecified viral hepatitis C without hepatic coma; E78.00 Pure hypercholesterolemia, unspecified; I11.0 Hypertensive heart disease with heart failure; G43.909 Migraine, unspecified, not intractable, without status migrainosus; K57.90 Diverticulosis of intestine, part unspecified, without perforation or abscess without bleeding; G89.29 Other chronic pain; M54.2 Cervicalgia; M54.9 Dorsalgia, unspecified; M19.90 Unspecified osteoarthritis, unspecified site; Z20.822 Contact with and (suspected) exposure to COVID-19; E03.9 Hypothyroidism, unspecified; F41.9 Anxiety disorder, unspecified; I25.10 Atherosclerotic heart disease of native coronary artery without angina pectoris; F32.A Depression, unspecified; Z86.711 Personal history of pulmonary embolism; Z86.718 Personal history of other venous thrombosis and embolism; Z90.81 Acquired absence of spleen; Z90.49 Acquired absence of other specified parts of digestive tract; Z85.038 Personal history of other malignant neoplasm of large intestine; Z98.1 Arthrodesis status; Z79.890 Hormone replacement therapy; Z79.899 Other long term (current) drug therapy; Z91.041 Radiographic dye allergy status
CPT/HCPCS: 36415; 71045; 80048; 80053; 80306; 80320; 81000; 82150; 82550; 82553; 83605; 83615; 83690; 83735; 83874; 83880; 84145; 84484; 85007; 85025; 85027; 85379; 85610; 85652; 85730; 86141; 87040; 87088; 87430; 87636; 93005; 93041; 93306; G0378

== ENCOUNTER 2021-09-16 10:24 | Emergency (ER) | payer MEDICAID ==
[~2021-09-16] VITALS: Ht 182.9 cm; Wt 99.8 kg
[~2021-09-16 10:24] MED LIST changes: +LOSA25TA2 PO; +METO50TA7 PO; +OMEP20CA18 PO
[2021-09-16] MEDS ORDERED: ONDANSETRON 4 MG/2 ML (SDV) Z0FRAN IVP STA (10:45)
[2021-09-16] MEDS ORDERED: NS IV 1000 ML 1,000 ML IV STA (10:45)
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
[2021-09-16 10:58] LABS: INR 1.3 (0.8-1.4); PROTHROMBIN TIME PATIENT 16.2 SEC (12.2-14.7)
[2021-09-16 11:05] LABS: HEMATOCRIT 35 % (40-54); HEMOGLOBIN 11.2 g/dL (13.3-17.7); MEAN CORPUSCULAR HEMOGLOBIN 24 pg (25-34); MEAN CORPUSCULAR VOLUME 75 fL (80-99)
[2021-09-16 11:06] LABS: BASOPHILS # (AUTO) 0.1 10^3/uL (0.0-0.1); BASOPHILS % (AUTO) 1 % (0-10); EOSINOPHILS # (AUTO) 0.8 10^3/uL (0.0-0.3); EOSINOPHILS % (AUTO) 7 % (0-10); LYMPHOCYTES # (AUTO) 1.5 X 10^3 (1.0-4.0); LYMPHOCYTES % (AUTO) 12 % (12-44); MEAN CORPUSCULAR HGB CONC 32 g/dL (32-36); MEAN PLATELET VOLUME 10.1 fL (9.0-12.2); MONOCYTES # (AUTO) 2.1 X 10^3 (0.0-1.0); MONOCYTES % (AUTO) 17 % (0-12); NEUTROPHILS # (AUTO) 7.5 X 10^3 (1.8-7.8); NEUTROPHILS % (AUTO) 63 % (42-75); PLATELET COUNT 393 10^3/uL (130-400)
[2021-09-16 11:09] LABS: CREATININE SERUM 1.53 MG/DL (0.60-1.30); POTASSIUM 4.3 MMOL/L (3.6-5.0)
[2021-09-16 11:10] LABS: ALBUMIN 4.1 GM/DL (3.2-4.5); BILIRUBIN,TOTAL 0.9 MG/DL (0.1-1.0); CALCIUM 9.3 MG/DL (8.5-10.1); MAGNESIUM 2.2 MG/DL (1.6-2.4); TOTAL PROTEIN 7.3 GM/DL (6.4-8.2)
--- NOTE | 2021-09-16 11:17 | Diagnostic Imaging Report ---
INDICATION: Chest pain and cough. TECHNIQUE: AP view of chest is obtained with comparison made to study of 09/05/2021. FINDINGS: Overall heart size and pulmonary vascularity are at the upper limits of normal without overt edema. Mild basilar atelectasis and/or scarring is similar to the previous study. There is no pneumothorax or new infiltrate. No definite pleural fluid is seen. IMPRESSION: Mild basilar atelectasis and/or scarring without evidence of new infiltrate or other adverse change. Dictated by: Dictated on workstation # [id number]
[2021-09-16 11:47] VITALS: BP 117/64
== END 2021-09-16 11:47 | disposition home or self-care (01) ==
LOC: EDUNIT# 10:24 → ER FS 10:26
DX: E86.0 Dehydration (principal); R61 Generalized hyperhidrosis; I44.4 Left anterior fascicular block; R14.0 Abdominal distension (gaseous); R05.9 Cough, unspecified; I10 Essential (primary) hypertension; I48.91 Unspecified atrial fibrillation; E03.9 Hypothyroidism, unspecified; E78.00 Pure hypercholesterolemia, unspecified; F41.9 Anxiety disorder, unspecified; F32.9 Major depressive disorder, single episode, unspecified; G43.909 Migraine, unspecified, not intractable, without status migrainosus; Z85.038 Personal history of other malignant neoplasm of large intestine; Z86.711 Personal history of pulmonary embolism; Z86.718 Personal history of other venous thrombosis and embolism; Z79.01 Long term (current) use of anticoagulants; Z79.52 Long term (current) use of systemic steroids; Z79.890 Hormone replacement therapy; Z79.899 Other long term (current) drug therapy
CPT/HCPCS: 36415; 71045; 80053; 82947; 83605; 83690; 83735; 83880; 84484; 85025; 85610; 85730; 93005; 93041

== ENCOUNTER 2021-11-13 20:13 | Observation (INO) | payer MEDICAID ==
[~2021-11-13] VITALS: Ht 170 cm; Wt 99.8 kg
[2021-11-13] MEDS ORDERED: NS IV 1000 ML 1,000 ML IV SCH (20:45)
[2021-11-13] MEDS ORDERED: cefTRIAXone 1 GM PRE-MIX 50 ML IV ONE (20:45)
[2021-11-13] MEDS ORDERED: ASPIRIN 81 MG CHEW (CHILDREN'S ASA) PO ONE (20:45)
[2021-11-13] MEDS ORDERED: AZITHROMYCIN 250 MG TAB (ZITHROMAX) PO ONE (20:45)
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
[2021-11-13 20:52] LABS: BASOPHILS # (AUTO) 0.1 10^3/uL (0.0-0.1); BASOPHILS % (AUTO) 1 % (0-10); EOSINOPHILS # (AUTO) 1.1 10^3/uL (0.0-0.3); EOSINOPHILS % (AUTO) 9 % (0-10); HEMATOCRIT 36 % (40-54); HEMOGLOBIN 11.3 g/dL (13.3-17.7); LYMPHOCYTES # (AUTO) 1.4 10^3/uL (1.0-4.0); LYMPHOCYTES % (AUTO) 11 % (12-44); MEAN CORPUSCULAR HEMOGLOBIN 23 pg (25-34); MEAN CORPUSCULAR HGB CONC 32 g/dL (32-36); MEAN CORPUSCULAR VOLUME 72 fL (80-99); MEAN PLATELET VOLUME 10.6 fL (9.0-12.2); MONOCYTES # (AUTO) 1.6 10^3/uL (0.0-1.0); MONOCYTES % (AUTO) 13 % (0-12); NEUTROPHILS # (AUTO) 8.3 10^3/uL (1.8-7.8); NEUTROPHILS % (AUTO) 66 % (42-75); PLATELET COUNT 430 10^3/uL (130-400); WHITE BLOOD COUNT 12.6 10^3/uL (4.3-11.0)
[2021-11-13 21:05] LABS: INR 1.4 (0.8-1.4); PROTHROMBIN TIME PATIENT 17.7 SEC (12.2-14.7)
--- NOTE | 2021-11-13 21:10 | Diagnostic Imaging Report ---
EXAMINATION: Portable chest. COMPARISON: Prior study from September 16, 2021. INDICATION: Cough, dizziness and shortness of breath. FINDINGS: There is enlargement of the cardiac silhouette but no current evidence of failure or edema. Some minimal linear airspace opacity at the left base is most likely reflective of atelectasis. There is no dense alveolar consolidation. There is no large effusion or pneumothorax. IMPRESSION: 1. Enlarged cardiac silhouette without evidence of edema or failure. 2. Patchy linear densities at the left base are most likely reflective of atelectasis. Dictated by: Dictated on workstation # [id number]
[2021-11-13 21:12] LABS: BILIRUBIN,TOTAL 1.2 MG/DL (0.1-1.0); CALCIUM 9.4 MG/DL (8.5-10.1); CREATININE SERUM 1.39 MG/DL (0.60-1.30); MAGNESIUM 2.1 MG/DL (1.6-2.4); POTASSIUM 3.9 MMOL/L (3.6-5.0); TOTAL PROTEIN 6.9 GM/DL (6.4-8.2)
[2021-11-13 23:06] VITALS: BP 131/83
[2021-11-13 23:15] VITALS: BP 100/73
[2021-11-13 23:30] VITALS: BP 116/80
[2021-11-14] VITALS: BP 109/80
[2021-11-14] MEDS ORDERED: ALPRAZolam 1 MG (XANAX) TAB PO ONE (01:15)
[2021-11-14] MEDS ORDERED: NITROGLYCERIN 0.4 MG SL TABS BTL 25'S SL PRN (01:15)
[2021-11-14] MEDS ORDERED: FUROSEMIDE 40 MG/4 ML INJ (LASIX) IV ONE (01:30)
[2021-11-14] MEDS ORDERED: oxyCODONE/APAP 7.5-325 MG (PERCOCET 7.5) TABLET PO PRN (01:30)
[2021-11-14] MEDS ORDERED: LORazepam INJ 2 MG/ML (ATIVAN) VIAL IV PRN (01:30)
[2021-11-14] MEDS ORDERED: ONDANSETRON 4 MG/2 ML (SDV) Z0FRAN IV PRN (01:30)
[2021-11-14] MEDS ORDERED: ACETAMINOPHEN 325 MG TABLET PO PRN (01:30)
[2021-11-14 05:00] LABS: BASOPHILS # (AUTO) 0.1 10^3/uL (0.0-0.1); BASOPHILS % (AUTO) 1 % (0-10); EOSINOPHILS # (AUTO) 1.2 10^3/uL (0.0-0.3); EOSINOPHILS % (AUTO) 10 % (0-10); HEMATOCRIT 32 % (40-54); HEMOGLOBIN 10.3 g/dL (13.3-17.7); LYMPHOCYTES # (AUTO) 1.2 10^3/uL (1.0-4.0); LYMPHOCYTES % (AUTO) 10 % (12-44); MEAN CORPUSCULAR HEMOGLOBIN 23 pg (25-34); MEAN CORPUSCULAR HGB CONC 32 g/dL (32-36); MEAN CORPUSCULAR VOLUME 71 fL (80-99); MEAN PLATELET VOLUME 10.2 fL (9.0-12.2); MONOCYTES # (AUTO) 1.7 10^3/uL (0.0-1.0); MONOCYTES % (AUTO) 14 % (0-12); NEUTROPHILS # (AUTO) 7.7 10^3/uL (1.8-7.8); NEUTROPHILS % (AUTO) 64 % (42-75); PLATELET COUNT 366 10^3/uL (130-400); WHITE BLOOD COUNT 11.9 10^3/uL (4.3-11.0)
[2021-11-14 05:16] LABS: POTASSIUM 3.8 MMOL/L (3.6-5.0)
[2021-11-14 05:17] LABS: CALCIUM 8.9 MG/DL (8.5-10.1)
[2021-11-14 05:22] LABS: CREATININE SERUM 1.26 MG/DL (0.60-1.30)
[2021-11-14] MEDS ORDERED: CATHETER FLUSH 10 ML SYR IV SCH (06:00)
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
[2021-11-14] MEDS ORDERED: LEVOTHYROXINE 75 MCG (LEVOTHROID) TABLET PO SCH (06:30)
[2021-11-14] MEDS ORDERED: FUROSEMIDE 40 MG/4 ML INJ (LASIX) IV SCH (07:00)
--- NOTE | 2021-11-14 07:18 | Diagnostic Imaging Report ---
INDICATION: Acute on chronic heart failure. COMPARISON: 11/13/2021 FINDINGS: The heart size is stable. There appear to be increasing bibasilar infiltrates. There is no pleural effusion or pneumothorax. The mediastinum is unremarkable. IMPRESSION: Increasing bibasilar pulmonary infiltrates. Dictated by: Dictated on workstation # [id number]
[2021-11-14 08:25] VITALS: BP 107/68
[2021-11-14] MEDS ORDERED: ASPIRIN E.C. 81 MG (ECOTRIN) TAB PO SCH (09:00)
[2021-11-14] MEDS ORDERED: PANTOPRAZOLE 40 MG (PROTONIX) TAB PO SCH (09:00)
[2021-11-14] MEDS ORDERED: APIXABAN 5 MG (ELIQUIS) TABLET PO SCH ×2 (09:00→21:00)
[2021-11-14] MEDS ORDERED: KCL 10 MEQ TAB (MICRO K) PO SCH (09:00)
[2021-11-14] MEDS ORDERED: meTOproloL SUCCINATE 50 MG (TOPROL XL) TAB PO SCH (09:00)
[2021-11-14] MEDS ORDERED: LOSARTAN 25 MG (COZAAR) TAB PO SCH (09:00)
[2021-11-14] MEDS ORDERED: ASPI-1238 PO (10:13)
[2021-11-14] MEDS ORDERED: PRED10TA22 PO (10:13)
[2021-11-14] MEDS ORDERED: CEFD300C3 PO (10:13)
[2021-11-14] MEDS ORDERED: RT-ALBUINH IH (10:13)
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
[2021-11-14] MEDS ORDERED: ALPRAZolam 1 MG (XANAX) TAB PO PRN (10:15)
[2021-11-15] MEDS ORDERED: LEVOTHYROXINE 75 MCG (LEVOTHROID) TABLET PO SCH (06:30)
[2021-11-15] MEDS ORDERED: LOSARTAN 25 MG (COZAAR) TAB PO SCH (09:00)
[2021-11-15] MEDS ORDERED: meTOproloL SUCCINATE 50 MG (TOPROL XL) TAB PO SCH (09:00)
[2021-11-15] MEDS ORDERED: PANTOPRAZOLE 20 MG TABLET (PROTONIX) PO SCH (09:00)
== END 2021-11-14 13:45 | disposition home or self-care (01) ==
LOC: EDUNIT# 20:13 → ER 20:16 → CSD 22:30 → INTOOBSV 22:30
PROVIDERS: ADMIT Internal Medicine; ATTEND Internal Medicine
DX: J40 Bronchitis, not specified as acute or chronic (principal); I11.0 Hypertensive heart disease with heart failure; I50.43 Acute on chronic combined systolic (congestive) and diastolic (congestive) heart failure; I24.9 Acute ischemic heart disease, unspecified; I48.91 Unspecified atrial fibrillation; R77.8 Other specified abnormalities of plasma proteins; E78.5 Hyperlipidemia, unspecified; E03.9 Hypothyroidism, unspecified; I42.0 Dilated cardiomyopathy; Z79.891 Long term (current) use of opiate analgesic; Z79.890 Hormone replacement therapy; Z79.899 Other long term (current) drug therapy; Z79.01 Long term (current) use of anticoagulants; Z87.891 Personal history of nicotine dependence; Z80.1 Family history of malignant neoplasm of trachea, bronchus and lung
CPT/HCPCS: 36415; 71045; 80048; 80053; 80061; 83605; 83735; 83874; 83880; 84145; 84484; 85025; 85610; 85730; 86141; 87040; 87636; 93005

== ENCOUNTER 2022-01-18 14:55 | Emergency (ER) | payer MEDICAID ==
[~2022-01-18] VITALS: Ht 170 cm; Wt 99.8 kg
[~2022-01-18 14:55] MED LIST changes: +ASPI-1238 PO; +OMEP20TA56 PO; -OMEP20TA7 PO; +PRED10TA22 PO
[2022-01-18 15:44] LABS: BASOPHILS # (AUTO) 0.1 10^3/uL (0.0-0.1); BASOPHILS % (AUTO) 2 % (0-10); EOSINOPHILS # (AUTO) 0.6 10^3/uL (0.0-0.3); EOSINOPHILS % (AUTO) 8 % (0-10); HEMATOCRIT 24 % (40-54); HEMOGLOBIN 7.8 g/dL (13.3-17.7); LYMPHOCYTES # (AUTO) 0.9 10^3/uL (1.0-4.0); LYMPHOCYTES % (AUTO) 13 % (12-44); MEAN CORPUSCULAR HEMOGLOBIN 22 pg (25-34); MEAN CORPUSCULAR HGB CONC 32 g/dL (32-36); MEAN CORPUSCULAR VOLUME 70 fL (80-99); MEAN PLATELET VOLUME 10.9 fL (9.0-12.2); MONOCYTES % (AUTO) 14 % (0-12); NEUTROPHILS # (AUTO) 4.7 10^3/uL (1.8-7.8); NEUTROPHILS % (AUTO) 64 % (42-75); PLATELET COUNT 335 10^3/uL (130-400); WHITE BLOOD COUNT 7.3 10^3/uL (4.3-11.0)
[2022-01-18] MEDS ORDERED: NS IV 500 ML 500 ML IV STA (15:44)
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
--- NOTE | 2022-01-18 15:57 | Diagnostic Imaging Report ---
HISTORY: Chest pain. TECHNIQUE: Frontal view of the chest. COMPARISON: 11/14/2021. FINDINGS: Lung volumes are mildly low. There are mild opacities in the left lung base, similar to prior exams, may represent chronic scarring or atelectasis. No new consolidation is seen. There is no pleural effusion or pneumothorax. The cardiac silhouette is normal in size. IMPRESSION: No acute pulmonary abnormality is seen. Dictated by: Dictated on workstation # [id number]
[2022-01-18 16:10] LABS: ALBUMIN 3.5 GM/DL (3.2-4.5); BILIRUBIN,TOTAL 1.4 MG/DL (0.1-1.0); CALCIUM 8.8 MG/DL (8.5-10.1); CREATININE SERUM 1.58 MG/DL (0.60-1.30); MAGNESIUM 2.1 MG/DL (1.6-2.4); POTASSIUM 4.3 MMOL/L (3.6-5.0); TOTAL PROTEIN 6.4 GM/DL (6.4-8.2)
[2022-01-18] MEDS ORDERED: FAMOTIDINE 20MG/2ML IV (PEPCID) IVP ONE (17:15)
[2022-01-18] MEDS ORDERED: RT-ALBUTEROL HFA 8.5 GM INHALER IH STA (17:15)
[2022-01-18] MEDS ORDERED: EPINEPHrine INJECTION 1 MG/ML AMP IM ONE (17:15)
[2022-01-18] MEDS ORDERED: NS IV 1000 ML 1,000 ML IV STA (17:15)
[2022-01-18] MEDS ORDERED: diphenhydrAMINE 50 MG/ML INJ (BENADRYL) IVP ONE (17:15)
[2022-01-18 18:29] VITALS: BP 105/72
[2022-01-18 18:32] LABS: INR 1.6 (0.8-1.4); PROTHROMBIN TIME PATIENT 19.4 SEC (12.2-14.7)
== END 2022-01-18 18:29 | disposition home or self-care (01) ==
LOC: EDUNIT# 14:55 → ER FS 14:56
DX: D64.9 Anemia, unspecified (principal); I10 Essential (primary) hypertension; I48.91 Unspecified atrial fibrillation; Z79.02 Long term (current) use of antithrombotics/antiplatelets
CPT/HCPCS: 36415; 71045; 80053; 83735; 83880; 84484; 85025; 85610; 85730; 93005; 93041

== ENCOUNTER 2022-01-22 16:05 | Emergency (ER) | payer MEDICAID ==
[~2022-01-22] VITALS: Ht 182.9 cm; Wt 104.1 kg
[2022-01-22 16:41] LABS: BASOPHILS # (AUTO) 0.1 10^3/uL (0.0-0.1); BASOPHILS % (AUTO) 1 % (0-10); EOSINOPHILS # (AUTO) 0.2 10^3/uL (0.0-0.3); EOSINOPHILS % (AUTO) 2 % (0-10); HEMATOCRIT 31 % (40-54); HEMOGLOBIN 10.2 g/dL (13.3-17.7); LYMPHOCYTES % (AUTO) 11 % (12-44); MEAN CORPUSCULAR HEMOGLOBIN 22 pg (25-34); MEAN CORPUSCULAR HGB CONC 33 g/dL (32-36); MEAN CORPUSCULAR VOLUME 67 fL (80-99); MEAN PLATELET VOLUME 11.2 fL (9.0-12.2); MONOCYTES # (AUTO) 1.2 10^3/uL (0.0-1.0); MONOCYTES % (AUTO) 13 % (0-12); NEUTROPHILS # (AUTO) 6.7 10^3/uL (1.8-7.8); NEUTROPHILS % (AUTO) 73 % (42-75); PLATELET COUNT 450 10^3/uL (130-400); WHITE BLOOD COUNT 9.2 10^3/uL (4.3-11.0)
--- NOTE | 2022-01-22 16:46 | Diagnostic Imaging Report ---
INDICATION: SOA COMPARISON: 01/18/2022. FINDINGS: Single frontal view of the chest demonstrates normal heart size and pulmonary vascularity. The lungs are well aerated and clear. No large pleural effusion or pneumothorax is seen. The visualized osseous structures show no acute abnormalities. IMPRESSION: 1. No acute cardiopulmonary process. Dictated by: Dictated on workstation # [id number]
[2022-01-22 17:08] LABS: BUN/CREATININE RATIO 22; CALCIUM 9.2 MG/DL (8.5-10.1); CARBON DIOXIDE 19 MMOL/L (21-32); CHLORIDE 107 MMOL/L (98-107); CREATININE SERUM 1.72 MG/DL (0.60-1.30); GFR ESTIMATED 44; GLUCOSE 99 MG/DL (70-105); POTASSIUM 4.4 MMOL/L (3.6-5.0); SODIUM 137 MMOL/L (135-145)
[2022-01-22 17:09] LABS: ALANINE AMINOTRANSFERASE 15 U/L (0-55); ALBUMIN 3.6 GM/DL (3.2-4.5); ALKALINE PHOSPHATASE 273 U/L (40-136); BILIRUBIN,TOTAL 1.9 MG/DL (0.1-1.0); TOTAL PROTEIN 6.6 GM/DL (6.4-8.2)
[2022-01-22] MEDS ORDERED: FUROSEMIDE 40 MG/4 ML INJ (LASIX) IVP ONE (17:15)
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
[2022-01-22 18:05] VITALS: BP 134/86
== END 2022-01-22 18:12 | disposition home or self-care (01) ==
LOC: EDUNIT# 16:05 → ER FS 16:06
DX: I11.0 Hypertensive heart disease with heart failure (principal); I50.9 Heart failure, unspecified
CPT/HCPCS: 36415; 71045; 80053; 83880; 84484; 85025; 93005

== ENCOUNTER 2022-04-09 12:15 | Emergency (ER) | payer MEDICAID ==
[~2022-04-09] VITALS: Ht 182 cm; Wt 90.0 kg
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
[2022-04-09 12:49] LABS: BASOPHILS # (AUTO) 0.1 10^3/uL (0.0-0.1); BASOPHILS % (AUTO) 1 % (0-10); EOSINOPHILS # (AUTO) 0.7 10^3/uL (0.0-0.3); EOSINOPHILS % (AUTO) 6 % (0-10); HEMATOCRIT 36 % (40-54); HEMOGLOBIN 12.1 g/dL (13.3-17.7); LYMPHOCYTES # (AUTO) 1.1 10^3/uL (1.0-4.0); LYMPHOCYTES % (AUTO) 11 % (12-44); MEAN CORPUSCULAR HEMOGLOBIN 26 pg (25-34); MEAN CORPUSCULAR HGB CONC 33 g/dL (32-36); MEAN CORPUSCULAR VOLUME 77 fL (80-99); MEAN PLATELET VOLUME 10.7 fL (9.0-12.2); MONOCYTES # (AUTO) 1.6 10^3/uL (0.0-1.0); MONOCYTES % (AUTO) 15 % (0-12); NEUTROPHILS # (AUTO) 7.2 10^3/uL (1.8-7.8); NEUTROPHILS % (AUTO) 67 % (42-75); PLATELET COUNT 417 10^3/uL (130-400); WHITE BLOOD COUNT 10.7 10^3/uL (4.3-11.0)
--- NOTE | 2022-04-09 12:59 | Diagnostic Imaging Report ---
INDICATION: Chest pain, shortness of air, cough. TECHNIQUE: Single-view chest at 12:46 p.m. CORRELATION STUDY: 01/22/2022. FINDINGS: Heart size is borderline enlarged. Vasculature is overall within normal limits. Perhaps minimal atelectasis at the left lung base. No definitive infiltrate. Multiple clips in the left upper quadrant of the abdomen. IMPRESSION: 1. Perhaps minimal basilar atelectasis. No definitive infiltrate. Dictated by: Dictated on workstation # [id number]
[2022-04-09 13:24] LABS: INR 1.6 (0.8-1.4); PROTHROMBIN TIME PATIENT 19.5 SEC (12.2-14.7)
[2022-04-09 14:04] LABS: CALCIUM 9.3 MG/DL (8.5-10.1); CREATININE SERUM 1.5 MG/DL (0.60-1.30); POTASSIUM 4.7 MMOL/L (3.6-5.0)
[2022-04-09 14:05] LABS: ALBUMIN 3.6 GM/DL (3.2-4.5); BILIRUBIN,TOTAL 1.5 MG/DL (0.1-1.0); TOTAL PROTEIN 7.1 GM/DL (6.4-8.2)
[2022-04-09] MEDS: FUROSEMIDE 40 MG/4 ML INJ (LASIX) IVP STA (15:20)
[2022-04-09 15:56] VITALS: BP 141/103
[2022-04-09 15:58] LABS: BILIRUBIN,URINE NEGATIVE (NEGATIVE); CLARITY,URINE CLEAR; COLOR,URINE YELLOW; GLUCOSE, URINE (UA) NEGATIVE (NEGATIVE); KETONES,URINE NEGATIVE (NEGATIVE); LEUKOCYTE ESTERASE ,URINE NEGATIVE (NEGATIVE); NITRITE,URINE NEGATIVE (NEGATIVE); PH,URINE 5.5 (5-9); PROTEIN,URINE NEGATIVE (NEGATIVE)
[2022-04-09 16:06] LABS: BACTERIA,URINE NEGATIVE /HPF; HYALINE CASTS, URINE 0-2 /LPF; RBC,URINE RARE /HPF; WBC,URINE RARE /HPF
== END 2022-04-09 16:30 | disposition short-term general hospital (02) ==
LOC: EDUNIT# 12:15 → ER FS 12:17
DX: I13.0 Hypertensive heart and chronic kidney disease with heart failure and stage 1 through stage 4 chronic kidney disease, or unspecified chronic kidney disease (principal); N18.9 Chronic kidney disease, unspecified; I50.9 Heart failure, unspecified; R60.0 Localized edema; Z87.891 Personal history of nicotine dependence; Z20.822 Contact with and (suspected) exposure to COVID-19
CPT/HCPCS: 36415; 71045; 80053; 81000; 83690; 83735; 83874; 83880; 84484; 85025; 85610; 85730; 87636; 93005

== ENCOUNTER 2022-05-04 23:09 | Emergency (ER) | payer MEDICAID ==
[~2022-05-04] VITALS: Ht 182.9 cm; Wt 91.6 kg
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
[2022-05-04] MEDS ORDERED: PANTOPRAZOLE 40 MG (PROTONIX) VIAL IV ONE (23:30)
[2022-05-04] MEDS ORDERED: ONDANSETRON 4 MG/2 ML (SDV) Z0FRAN IVP ONE (23:30)
[2022-05-04] MEDS ORDERED: LACTATED RINGERS 1,000 ML IV ONE (23:30)
[2022-05-04 23:40] LABS: BASOPHILS # (AUTO) 0.1 10^3/uL (0.0-0.1); BASOPHILS % (AUTO) 2 % (0-10); EOSINOPHILS # (AUTO) 0.1 10^3/uL (0.0-0.3); EOSINOPHILS % (AUTO) 1 % (0-10); HEMATOCRIT 40 % (40-54); HEMOGLOBIN 13.4 g/dL (13.3-17.7); LYMPHOCYTES # (AUTO) 0.6 10^3/uL (1.0-4.0); LYMPHOCYTES % (AUTO) 8 % (12-44); MEAN CORPUSCULAR HEMOGLOBIN 27 pg (25-34); MEAN CORPUSCULAR HGB CONC 34 g/dL (32-36); MEAN CORPUSCULAR VOLUME 80 fL (80-99); MEAN PLATELET VOLUME 10.7 fL (9.0-12.2); MONOCYTES # (AUTO) 0.9 10^3/uL (0.0-1.0); MONOCYTES % (AUTO) 11 % (0-12); NEUTROPHILS # (AUTO) 6.4 10^3/uL (1.8-7.8); NEUTROPHILS % (AUTO) 79 % (42-75); PLATELET COUNT 460 10^3/uL (130-400); WHITE BLOOD COUNT 8.2 10^3/uL (4.3-11.0)
[2022-05-04 23:56] LABS: ALBUMIN 3.7 GM/DL (3.2-4.5); CHLORIDE 106 MMOL/L (98-107); INR 1.4 (0.8-1.4); POTASSIUM 4.3 MMOL/L (3.6-5.0); PROTHROMBIN TIME PATIENT 17.3 SEC (12.2-14.7); SODIUM 139 MMOL/L (135-145)
[2022-05-04 23:57] LABS: CALCIUM 9.9 MG/DL (8.5-10.1)
[2022-05-04 23:58] LABS: AMYLASE 32 U/L (25-125); GLUCOSE 100 MG/DL (70-105); TOTAL PROTEIN 7.5 GM/DL (6.4-8.2)
[2022-05-04 23:59] LABS: CARBON DIOXIDE 20 MMOL/L (21-32)
[2022-05-05] LABS: BILIRUBIN,TOTAL 2.1 MG/DL (0.1-1.0)
[2022-05-05 00:02] LABS: ALKALINE PHOSPHATASE 185 U/L (40-136); CREATININE SERUM 1.44 MG/DL (0.60-1.30); GFR ESTIMATED 55
[2022-05-05 00:03] LABS: BUN/CREATININE RATIO 10
[2022-05-05 00:05] LABS: ALANINE AMINOTRANSFERASE 15 U/L (0-55); MAGNESIUM 1.6 MG/DL (1.6-2.4)
[2022-05-05 00:06] LABS: LIPASE 15 U/L (8-78)
[2022-05-05] MEDS ORDERED: LACTATED RINGERS 1,000 ML IV ONE (00:45)
[2022-05-05] MEDS ORDERED: ONDA4TAB11 PO (01:10)
[2022-05-05] MEDS ORDERED: PANT40TA2 PO (01:10)
[2022-05-05 01:40] VITALS: BP 116/77
== END 2022-05-05 01:42 | disposition home or self-care (01) ==
LOC: EDUNIT# 23:09 → ER 23:11
DX: F41.9 Anxiety disorder, unspecified (principal); F99 Mental disorder, not otherwise specified; F17.210 Nicotine dependence, cigarettes, uncomplicated; Z20.822 Contact with and (suspected) exposure to COVID-19
CPT/HCPCS: 36415; 80053; 80320; 82150; 83690; 83735; 85025; 85610; 85730; 87636; 93041

== ENCOUNTER 2022-05-07 07:53 | Emergency (ER) | payer MEDICAID ==
[~2022-05-07] VITALS: Ht 182.8 cm; Wt 90.7 kg
[2022-05-07] MEDS ORDERED: ASPIRIN 81 MG CHEW (CHILDREN'S ASA) PO ONE (08:15)
[2022-05-07 08:19] LABS: BASOPHILS # (AUTO) 0.2 10^3/uL (0.0-0.1); BASOPHILS % (AUTO) 2 % (0-10); EOSINOPHILS % (AUTO) 10 % (0-10); HEMATOCRIT 38 % (40-54); HEMOGLOBIN 13.1 g/dL (13.3-17.7); LYMPHOCYTES # (AUTO) 1.3 10^3/uL (1.0-4.0); LYMPHOCYTES % (AUTO) 13 % (12-44); MEAN CORPUSCULAR HEMOGLOBIN 28 pg (25-34); MEAN CORPUSCULAR HGB CONC 35 g/dL (32-36); MEAN CORPUSCULAR VOLUME 80 fL (80-99); MEAN PLATELET VOLUME 10.8 fL (9.0-12.2); MONOCYTES # (AUTO) 1.4 10^3/uL (0.0-1.0); MONOCYTES % (AUTO) 14 % (0-12); NEUTROPHILS # (AUTO) 6.1 10^3/uL (1.8-7.8); NEUTROPHILS % (AUTO) 61 % (42-75); PLATELET COUNT 423 10^3/uL (130-400)
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
[2022-05-07 08:24] LABS: ALBUMIN 3.5 GM/DL (3.2-4.5)
[2022-05-07 08:26] LABS: CALCIUM 9.4 MG/DL (8.5-10.1)
[2022-05-07 08:27] LABS: TOTAL PROTEIN 7.1 GM/DL (6.4-8.2)
[2022-05-07 08:29] LABS: BILIRUBIN,TOTAL 1.9 MG/DL (0.1-1.0)
[2022-05-07 08:30] LABS: CREATININE SERUM 1.59 MG/DL (0.60-1.30)
[2022-05-07 08:33] LABS: MAGNESIUM 1.9 MG/DL (1.6-2.4)
[2022-05-07 08:58] LABS: INR 1.8 (0.8-1.4); PROTHROMBIN TIME PATIENT 21.6 SEC (12.2-14.7)
--- NOTE | 2022-05-07 09:02 | Diagnostic Imaging Report ---
Indication: Chest pressure. Shortness of air. Headache. COMPARISON: 04/09/2022 FINDINGS: Frontal and lateral radiographic views of the chest were obtained and show normal cardiac silhouette. Pulmonary vasculature is prominent. Char B-lines are noted. Lungs are otherwise clear. There is no large effusion or pneumothorax. Osseous structures show no acute abnormalities. IMPRESSION: 1. Pulmonary vascular congestion and perhaps early pulmonary edema. Dictated by: Dictated on workstation # [id number]
[2022-05-07] MEDS ORDERED: ACETAMINOPHEN 500 MG TAB (TYLENOL) PO ONE (10:15)
[2022-05-07] MEDS ORDERED: HYDROcodone/APAP 5 MG/325 MG (LORTAB) TAB PO ONE (10:45)
[2022-05-07] MEDS ORDERED: FUROSEMIDE 40 MG/4 ML INJ (LASIX) IVP ONE (11:15)
[2022-05-07 12:27] VITALS: BP 131/90
== END 2022-05-07 12:27 | disposition home or self-care (01) ==
LOC: ER 07:54
DX: F43.21 Adjustment disorder with depressed mood (principal); R60.0 Localized edema; R07.89 Other chest pain; R77.8 Other specified abnormalities of plasma proteins; R10.84 Generalized abdominal pain; Z87.891 Personal history of nicotine dependence
CPT/HCPCS: 36415; 71046; 80053; 83690; 83735; 83874; 84484; 85025; 85610; 85730; 93005; 93041

== ENCOUNTER 2022-05-07 22:39 | Emergency (ER) | payer MEDICAID ==
[2022-05-07 22:48] VITALS: BP 133/86
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
[2022-05-08 00:21] LABS: BASOPHILS # (AUTO) 0.2 10^3/uL (0.0-0.1); BASOPHILS % (AUTO) 2 % (0-10); EOSINOPHILS # (AUTO) 0.8 10^3/uL (0.0-0.3); EOSINOPHILS % (AUTO) 8 % (0-10); HEMATOCRIT 37 % (40-54); HEMOGLOBIN 12.6 g/dL (13.3-17.7); LYMPHOCYTES # (AUTO) 1.2 10^3/uL (1.0-4.0); LYMPHOCYTES % (AUTO) 12 % (12-44); MEAN CORPUSCULAR HEMOGLOBIN 27 pg (25-34); MEAN CORPUSCULAR HGB CONC 34 g/dL (32-36); MEAN CORPUSCULAR VOLUME 80 fL (80-99); MEAN PLATELET VOLUME 10.3 fL (9.0-12.2); MONOCYTES # (AUTO) 1.4 10^3/uL (0.0-1.0); MONOCYTES % (AUTO) 15 % (0-12); NEUTROPHILS % (AUTO) 63 % (42-75); PLATELET COUNT 414 10^3/uL (130-400); WHITE BLOOD COUNT 9.5 10^3/uL (4.3-11.0)
[2022-05-08 00:37] LABS: ALBUMIN 3.5 GM/DL (3.2-4.5); INR 1.7 (0.8-1.4); PROTHROMBIN TIME PATIENT 20.1 SEC (12.2-14.7)
[2022-05-08 00:38] LABS: POTASSIUM 3.5 MMOL/L (3.6-5.0)
[2022-05-08 00:39] LABS: CALCIUM 9.2 MG/DL (8.5-10.1)
[2022-05-08 00:42] LABS: BILIRUBIN,TOTAL 1.7 MG/DL (0.1-1.0)
[2022-05-08 00:44] LABS: CREATININE SERUM 1.82 MG/DL (0.60-1.30)
--- NOTE | 2022-05-08 05:39 | Diagnostic Imaging Report ---
INDICATION: CHF. COMPARISON: Earlier same day FINDINGS: Single frontal radiographic view of the chest was obtained and demonstrates stable normal cardiac silhouette. Pulmonary vasculature is improved. Char B-lines are less obvious. Otherwise, lungs remain clear. There is no large effusion or pneumothorax. Osseous structures show no gross acute abnormalities. IMPRESSION: 1. Improving vascular congestion. Dictated by: Dictated on workstation # [id number]
== END 2022-05-08 05:24 | disposition home or self-care (01) ==
LOC: EDUNIT# 22:39 → ER 22:41
DX: F43.20 Adjustment disorder, unspecified (principal); I50.9 Heart failure, unspecified; I11.0 Hypertensive heart disease with heart failure; M79.81 Nontraumatic hematoma of soft tissue; Z86.718 Personal history of other venous thrombosis and embolism; Z79.01 Long term (current) use of anticoagulants
CPT/HCPCS: 36415; 71045; 80053; 83880; 84484; 85025; 85610; 86141; 93005

== ENCOUNTER 2022-05-12 10:57 | Emergency (ER) | payer MEDICAID ==
[2022-05-12 11:18] LABS: BASOPHILS # (AUTO) 0.1 10^3/uL (0.0-0.1); BASOPHILS % (AUTO) 1 % (0-10); EOSINOPHILS # (AUTO) 1.3 10^3/uL (0.0-0.3); EOSINOPHILS % (AUTO) 12 % (0-10); HEMATOCRIT 40 % (40-54); HEMOGLOBIN 13.7 g/dL (13.3-17.7); LYMPHOCYTES # (AUTO) 1.4 10^3/uL (1.0-4.0); LYMPHOCYTES % (AUTO) 13 % (12-44); MEAN CORPUSCULAR HEMOGLOBIN 27 pg (25-34); MEAN CORPUSCULAR HGB CONC 34 g/dL (32-36); MEAN CORPUSCULAR VOLUME 80 fL (80-99); MEAN PLATELET VOLUME 10.8 fL (9.0-12.2); MONOCYTES # (AUTO) 1.3 10^3/uL (0.0-1.0); MONOCYTES % (AUTO) 13 % (0-12); NEUTROPHILS # (AUTO) 6.2 10^3/uL (1.8-7.8); NEUTROPHILS % (AUTO) 61 % (42-75); PLATELET COUNT 411 10^3/uL (130-400); WHITE BLOOD COUNT 10.2 10^3/uL (4.3-11.0)
[2022-05-12] MEDS ORDERED: ONDANSETRON 4 MG/2 ML (SDV) Z0FRAN IVP STA (11:18)
[2022-05-12] MEDS ORDERED: fentaNYL INJ 100 MCG/2 ML AMP IVP STA ×2 (11:18→13:17)
[2022-05-12] MEDS ORDERED: PANTOPRAZOLE 40 MG (PROTONIX) VIAL IV STA (11:18)
[2022-05-12 11:31] LABS: INR 1.2 (0.8-1.4); PROTHROMBIN TIME PATIENT 15.3 SEC (12.2-14.7)
[2022-05-12 11:47] LABS: ANISOCYTOSIS SLIGHT; BAND NEUTROPHILS 0 %; BASOPHILS % (MANUAL) 0 %; EOSINOPHILS % (MANUAL) 13 %; LYMPHOCYTES % (MANUAL) 8 %; MONOCYTES % (MANUAL) 10 %; NEUTROPHILS % (MANUAL) 69 %
[2022-05-12 11:48] LABS: ACANTHOCYTES MODERATE
[2022-05-12 11:49] LABS: BILIRUBIN,TOTAL 1.4 MG/DL (0.1-1.0); CALCIUM 9.5 MG/DL (8.5-10.1); CREATININE SERUM 1.53 MG/DL (0.60-1.30); MAGNESIUM 1.9 MG/DL (1.6-2.4); POTASSIUM 3.8 MMOL/L (3.6-5.0)
[2022-05-12 11:50] LABS: ALBUMIN 3.9 GM/DL (3.2-4.5); TOTAL PROTEIN 7.7 GM/DL (6.4-8.2)
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
--- NOTE | 2022-05-12 12:44 | Diagnostic Imaging Report ---
PROCEDURE: CT chest, abdomen, and pelvis without contrast. TECHNIQUE: Multiple contiguous axial images were obtained through the chest, abdomen, and pelvis without the use of intravenous contrast. Auto Exposure Controls were utilized during the CT exam to meet ALARA standards for radiation dose reduction. INDICATION: Chest pain, abdominal pain, nausea and vomiting, hematemesis. COMPARISON: Abdominal/pelvic CT of 01/19/2021. FINDINGS: CHEST: No findings of pneumonia. No focal pulmonary consolidation. No evidence for pulmonary edema. No suspicious mass or concerning pulmonary nodularity. There is no thoracic lymphadenopathy. The aorta is nonaneurysmal and normal in caliber. There are coronary artery atherosclerotic vascular calcifications. There is no pleural or pericardial effusion. No endobronchial filling defect. No suspicious chest wall lesion. ABDOMEN/PELVIS: Hazy induration and increased density of the fat along the mesenteric root in the left upper quadrant is a redemonstrated finding and believed chronic. There is no appendicitis. There is previous sigmoid resection and anastomosis without evidence for its complication. There are diverticula in the sigmoid colon proximally which shows some mild stranding of the perisigmoidal fat; however, this is decreased from the prior exam and is likely some chronic scarring. No convincing evidence for active or acute diverticulitis. The atherosclerotic aorta is nonaneurysmal. There is no hydroureteronephrosis. Nonobstructing left upper pole nephrolithiasis, stable. The liver, gallbladder, and bile ducts are nonacute with mild hepatic steatosis and mild hepatomegaly, unchanged. The pancreas is nonfocal. The spleen is surgically absent with some left upper quadrant splenules, chronic. There is no finding of hemorrhage. There is no pneumatosis. There is no free air. The prostate, seminal vesicles, and urinary bladder are nonacute. IMPRESSION: CHEST: No pneumonia, mass, or acute chest pathology. Nonaneurysmal aortic atherosclerosis and coronary artery vascular calcifications are chronic. ABDOMEN/PELVIS: 1. Some chronic zoe mesentery along the left upper quadrant mesenteric root is stable. Colonic diverticulosis and prior sigmoid resection and anastomosis with mild perisigmoidal scarring but no acute diverticulitis apparent. 2. Nonobstructing nephrolithiasis, chronic. No hemorrhage, abscess, obstructive features, or acute finding. 3. Chronic mild fatty hepatomegaly with no acute biliary abnormality. Dictated by: Dictated on workstation # [id number]
[2022-05-12] MEDS ORDERED: LORazepam 0.5 MG (ATIVAN) TABLET PO STA (13:17)
[2022-05-12] MEDS ORDERED: ONDA4TAB11 PO ×2 (13:22→14:22)
[2022-05-12] MEDS ORDERED: PANT40TA2 PO ×2 (13:22→14:22)
[2022-05-12 13:55] VITALS: BP 120/73
== END 2022-05-12 15:44 | disposition home or self-care (01) ==
LOC: EDUNIT# 10:57 → ER FS 10:59
DX: K29.70 Gastritis, unspecified, without bleeding (principal); K92.0 Hematemesis; F43.20 Adjustment disorder, unspecified
CPT/HCPCS: 36415; 71250; 74176; 80053; 83690; 83735; 83880; 84484; 85007; 85027; 85610; 85730; 93005; 93041; 96374; 96375; 96376

== ENCOUNTER 2022-05-15 22:37 | Emergency (ER) | payer MEDICAID ==
[~2022-05-15] VITALS: Ht 182.8 cm; Wt 90.0 kg
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
[2022-05-15 22:57] LABS: BASOPHILS # (AUTO) 0.1 10^3/uL (0.0-0.1); BASOPHILS % (AUTO) 1 % (0-10); EOSINOPHILS # (AUTO) 0.8 10^3/uL (0.0-0.3); EOSINOPHILS % (AUTO) 9 % (0-10); HEMATOCRIT 36 % (40-54); HEMOGLOBIN 12.3 g/dL (13.3-17.7); LYMPHOCYTES # (AUTO) 1.3 10^3/uL (1.0-4.0); LYMPHOCYTES % (AUTO) 14 % (12-44); MEAN CORPUSCULAR HEMOGLOBIN 28 pg (25-34); MEAN CORPUSCULAR HGB CONC 35 g/dL (32-36); MEAN CORPUSCULAR VOLUME 80 fL (80-99); MEAN PLATELET VOLUME 10.4 fL (9.0-12.2); MONOCYTES # (AUTO) 1.4 10^3/uL (0.0-1.0); MONOCYTES % (AUTO) 14 % (0-12); NEUTROPHILS # (AUTO) 6.1 10^3/uL (1.8-7.8); NEUTROPHILS % (AUTO) 63 % (42-75); PLATELET COUNT 368 10^3/uL (130-400); WHITE BLOOD COUNT 9.8 10^3/uL (4.3-11.0)
[2022-05-15] MEDS ORDERED: ANTACID SUSP 30 ML UDC (MYLANTA) PO ONE (23:00)
[2022-05-15] MEDS ORDERED: DROPERIDOL 5 MG/2 ML (INAPSINE) ED ONLY! IV ONE (23:00)
[2022-05-15 23:14] LABS: ALBUMIN 3.9 GM/DL (3.2-4.5); BILIRUBIN,TOTAL 1.2 MG/DL (0.1-1.0); CALCIUM 9.2 MG/DL (8.5-10.1); CREATININE SERUM 1.91 MG/DL (0.60-1.30); POTASSIUM 4.1 MMOL/L (3.6-5.0); TOTAL PROTEIN 7.1 GM/DL (6.4-8.2)
[2022-05-15] MEDS ORDERED: diphenhydrAMINE 25 MG TAB (BENADRYL) PO PRN (23:30)
[2022-05-15] MEDS ORDERED: ACETAMINOPHEN 500 MG TAB (TYLENOL) PO PRN (23:30)
[2022-05-15 23:35] LABS: AMPHETAMINE SCREEN, URINE NEGATIVE (NEGATIVE); BARBITURATE SCREEN URINE NEGATIVE (NEGATIVE); BENZODIAZEPINES SCREEN URINE POSITIVE (NEGATIVE); CANNABINOID SCREEN, URINE NEGATIVE (NEGATIVE); COCAINE SCREEN URINE NEGATIVE (NEGATIVE); METHADONE STAT NEGATIVE (NEGATIVE); OPIATE SCREEN URINE NEGATIVE (NEGATIVE); OXYCODONE STAT POSITIVE (NEGATIVE); PROPOXYPHENE STAT NEGATIVE (NEGATIVE); TRICYCLIC ANTIDEPRESSANTS SCRE NEGATIVE (NEGATIVE)
[2022-05-16] MEDS ORDERED: ZIPRASIDONE 20 MG INJ (GEODON) VIAL IM ONE (03:15)
[2022-05-16] MEDS ORDERED: WATER (STERILE) FOR INJ 10 ML BTL INJ SCH (03:15)
[2022-05-16] MEDS ORDERED: diphenhydrAMINE 50 MG/ML INJ (BENADRYL) IM ONE (03:15)
[2022-05-16 05:36] VITALS: BP 110/82
== END 2022-05-16 05:36 | disposition home or self-care (01) ==
LOC: EDUNIT# 22:37 → ER FS 22:38
DX: R10.84 Generalized abdominal pain (principal); F32.A Depression, unspecified; Z20.822 Contact with and (suspected) exposure to COVID-19
CPT/HCPCS: 36415; 80053; 80306; 83605; 83690; 85025; 86141; 87636

== ENCOUNTER → 2022-05-20 | Outpatient (CLI) | payer MEDICAID ==
[~2022-05-20] VITALS: Ht 182.9 cm; Wt 95.7 kg
== END | disposition home or self-care (01) ==
LOC: PREOP 05:35
PROVIDERS: ATTEND Surgery
DX: Z01.818 Encounter for other preprocedural examination (principal)

== ENCOUNTER 2022-08-19 19:04 | Emergency (ER) | payer MEDICAID ==
[~2022-08-19] VITALS: Ht 182.8 cm; Wt 98.4 kg
[~2022-08-19 19:04] MED LIST changes: +ALBU8.5H6 IH; +LEVO750T PO; -LEVO750T39 PO; -RT-ALBUINH IH
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
--- NOTE | 2022-08-19 20:24 | Diagnostic Imaging Report ---
EXAMINATION: Chest 1 view, HISTORY: Shortness of breath. COMPARISON: 05/07/2022. FINDINGS: Moderate right pleural effusion is seen with right basilar opacities. No pneumothorax. Stable chronic silhouette. IMPRESSION: Moderate right-sided pleural effusion with right basilar opacities. Dictated by: Dictated on workstation # [id number]
[2022-08-19 20:27] LABS: BASOPHILS # (AUTO) 0.1 10^3/uL (0.0-0.1); BASOPHILS % (AUTO) 1 % (0-10); EOSINOPHILS # (AUTO) 0.3 10^3/uL (0.0-0.3); EOSINOPHILS % (AUTO) 3 % (0-10); HEMATOCRIT 33 % (40-54); HEMOGLOBIN 11.8 g/dL (13.3-17.7); LYMPHOCYTES # (AUTO) 0.7 10^3/uL (1.0-4.0); LYMPHOCYTES % (AUTO) 8 % (12-44); MEAN CORPUSCULAR HEMOGLOBIN 29 pg (25-34); MEAN CORPUSCULAR HGB CONC 36 g/dL (32-36); MEAN CORPUSCULAR VOLUME 81 fL (80-99); MEAN PLATELET VOLUME 10.9 fL (9.0-12.2); MONOCYTES # (AUTO) 1.1 10^3/uL (0.0-1.0); MONOCYTES % (AUTO) 11 % (0-12); NEUTROPHILS # (AUTO) 7.3 10^3/uL (1.8-7.8); NEUTROPHILS % (AUTO) 77 % (42-75); PLATELET COUNT 403 10^3/uL (130-400); WHITE BLOOD COUNT 9.5 10^3/uL (4.3-11.0)
[2022-08-19 20:42] LABS: ACANTHOCYTES MARKED; BURR CELLS MARKED; CRENATED RBC MARKED; EOSINOPHILS % (MANUAL) 4 %; LYMPHOCYTES % (MANUAL) 2 %; MONOCYTES % (MANUAL) 10 %; NEUTROPHILS % (MANUAL) 84 %; POLYCHROMASIA MARKED; TARGET CELLS MARKED
[2022-08-19 20:45] LABS: CALCIUM 8.7 MG/DL (8.5-10.1); CREATININE SERUM 2.62 MG/DL (0.60-1.30); POTASSIUM 2.8 MMOL/L (3.6-5.0)
[2022-08-19] MEDS ORDERED: NS (IVPB) 250 ML IV ONE (21:00)
[2022-08-19] MEDS ORDERED: KCL 20 MEQ TAB (K-DUR) PO ONE (21:00)
[2022-08-19] MEDS ORDERED: BUME1TAB8 PO (21:16)
[2022-08-19] MEDS: POTASSIUM CL 10MEQ/50ML IVPB 50 ML IV SCH ×2 (21:36→22:33)
[2022-08-19] MEDS ORDERED: FUROSEMIDE 40 MG/4 ML INJ (LASIX) IVP ONE (22:00)
[2022-08-19 23:58] VITALS: BP 116/74
== END 2022-08-19 23:58 | disposition home or self-care (01) ==
LOC: EDUNIT# 19:04 → ER 19:05
DX: I11.0 Hypertensive heart disease with heart failure (principal); I50.9 Heart failure, unspecified; I48.91 Unspecified atrial fibrillation; Z91.14 Patient's other noncompliance with medication regimen; Z79.01 Long term (current) use of anticoagulants
CPT/HCPCS: 36415; 71045; 80048; 83735; 83880; 85007; 85027; 99283

== ENCOUNTER 2022-08-25 22:26 | Inpatient (IN) | payer MEDICAID ==
[~2022-08-25] VITALS: Ht 182 cm; Wt 100.7 kg
[~2022-08-25 22:26] MED LIST changes: +BUME1TAB8 PO
[2022-08-25] MEDS ORDERED: IBUPROFEN 800 MG (MOTRIN) TAB PO STA (22:40)
[2022-08-25] MEDS ORDERED: NS IV 1000 ML 1,000 ML IV SCH (22:45)
[2022-08-25 22:52] LABS: BASOPHILS # (AUTO) 0.1 10^3/uL (0.0-0.1); BASOPHILS % (AUTO) 1 % (0-10); EOSINOPHILS # (AUTO) 0.1 10^3/uL (0.0-0.3); EOSINOPHILS % (AUTO) 1 % (0-10); HEMATOCRIT 35 % (40-54); HEMOGLOBIN 12.3 g/dL (13.3-17.7); LYMPHOCYTES # (AUTO) 0.5 10^3/uL (1.0-4.0); LYMPHOCYTES % (AUTO) 5 % (12-44); MEAN CORPUSCULAR HEMOGLOBIN 29 pg (25-34); MEAN CORPUSCULAR HGB CONC 35 g/dL (32-36); MEAN CORPUSCULAR VOLUME 82 fL (80-99); MEAN PLATELET VOLUME 10.9 fL (9.0-12.2); MONOCYTES # (AUTO) 1.3 10^3/uL (0.0-1.0); MONOCYTES % (AUTO) 13 % (0-12); NEUTROPHILS # (AUTO) 8.1 10^3/uL (1.8-7.8); NEUTROPHILS % (AUTO) 80 % (42-75); PLATELET COUNT 474 10^3/uL (130-400); WHITE BLOOD COUNT 10.1 10^3/uL (4.3-11.0)
[2022-08-25 22:59] LABS: PROTHROMBIN TIME PATIENT 23.3 SEC (12.2-14.7)
[2022-08-25 23:02] LABS: ALBUMIN 3.2 GM/DL (3.2-4.5); CHLORIDE 100 MMOL/L (98-107); POTASSIUM 3.1 MMOL/L (3.6-5.0); SODIUM 135 MMOL/L (135-145)
[2022-08-25 23:03] LABS: CALCIUM 8.7 MG/DL (8.5-10.1)
[2022-08-25 23:04] LABS: AMYLASE 41 U/L (25-125)
[2022-08-25 23:05] LABS: GLUCOSE 92 MG/DL (70-105); TOTAL PROTEIN 7.2 GM/DL (6.4-8.2)
[2022-08-25 23:06] LABS: BILIRUBIN,TOTAL 3.9 MG/DL (0.1-1.0); CARBON DIOXIDE 22 MMOL/L (21-32)
[2022-08-25 23:08] LABS: ALKALINE PHOSPHATASE 162 U/L (40-136); CREATININE SERUM 2.39 MG/DL (0.60-1.30); GFR ESTIMATED 30
[2022-08-25 23:10] LABS: ACETAMINOPHEN < 10 UG/ML (10-30); ANISOCYTOSIS MARKED; BUN/CREATININE RATIO 15; LYMPHOCYTES % (MANUAL) 5 %; MONOCYTES % (MANUAL) 12 %; NEUTROPHILS % (MANUAL) 83 %; POIKILOCYTOSIS MARKED; POLYCHROMASIA MODERATE; TARGET CELLS MARKED
[2022-08-25 23:11] LABS: ACANTHOCYTES MARKED; ALANINE AMINOTRANSFERASE 13 U/L (0-55); CRENATED RBC MARKED; ERYTHROCYTE SEDIMENTATION RATE 8 MM/HR (0-30); MAGNESIUM 1.4 MG/DL (1.6-2.4)
[2022-08-25 23:12] LABS: CREATINE KINASE 113 U/L (30-200); LIPASE 23 U/L (8-78)
[2022-08-25 23:19] LABS: CREATINE KINASE MB 2.1 NG/ML (<6.6)
[2022-08-25] MEDS ORDERED: CEFEPIME INJECTION 1,000 MG in NS (IVPB) 50 ML IV ONE (23:30)
[2022-08-25] MEDS ORDERED: MAGNESIUM 1 GM/100 ML IVPB 100 ML IV ONE (23:30)
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
[2022-08-25 23:41] LABS: BILIRUBIN,URINE 1+ (NEGATIVE); CLARITY,URINE CLEAR; COLOR,URINE ORANGE; GLUCOSE, URINE (UA) TRACE (NEGATIVE); KETONES,URINE NEGATIVE (NEGATIVE); LEUKOCYTE ESTERASE ,URINE NEGATIVE (NEGATIVE); NITRITE,URINE NEGATIVE (NEGATIVE); PROTEIN,URINE 2+ (NEGATIVE)
[2022-08-26] VITALS (11 sets, daily range): BP systolic 79–154; BP diastolic 33–96
[2022-08-26 00:03] LABS: AMPHETAMINE SCREEN, URINE NEGATIVE (NEGATIVE); BARBITURATE SCREEN URINE NEGATIVE (NEGATIVE); BENZODIAZEPINES SCREEN URINE POSITIVE (NEGATIVE); CANNABINOID SCREEN, URINE NEGATIVE (NEGATIVE); COCAINE SCREEN URINE NEGATIVE (NEGATIVE); METHADONE STAT NEGATIVE (NEGATIVE); OPIATE SCREEN URINE NEGATIVE (NEGATIVE); OXYCODONE STAT POSITIVE (NEGATIVE); PROPOXYPHENE STAT NEGATIVE (NEGATIVE); TRICYCLIC ANTIDEPRESSANTS SCRE NEGATIVE (NEGATIVE)
[2022-08-26 00:04] LABS: BACTERIA,URINE LARGE /HPF; GRANULAR CASTS,URINE 0-2 /LPF
[2022-08-26] MEDS ORDERED: NS IV 1000 ML 1,000 ML IV SCH (02:15)
[2022-08-26] MEDS ORDERED: ONDANSETRON 4 MG/2 ML (SDV) Z0FRAN IV PRN (03:00)
[2022-08-26] MEDS ORDERED: morphine INJ 4 MG/ML 1 ML (VIAL/SYRINGE) IV PRN (03:00)
[2022-08-26] MEDS ORDERED: EPINEPHrine 1 MG INJECTION 4 MG in NS (IVPB) 248 ML IV SCH (03:00)
[2022-08-26] MEDS ORDERED: NITROGLYCERIN 0.4 MG SL TABS BTL 25'S SL PRN (03:00)
[2022-08-26] MEDS ORDERED: D5 1/2 NS W/KCL 20 MEQ/L 1,000 ML IV SCH (03:00)
[2022-08-26] MEDS ORDERED: IBUPROFEN 800 MG (MOTRIN) TAB PO PRN (03:00)
[2022-08-26] MEDS ORDERED: VASOPRESSIN INJECTION 20 UNIT in NS (IVPB) 100 ML IV SCH (03:00)
[2022-08-26] MEDS ORDERED: NOREPINEPHRINE 8 MG/250 ML 250 ML IV SCH (03:00)
[2022-08-26 03:59] LABS: BASOPHILS # (AUTO) 0.1 10^3/uL (0.0-0.1); BASOPHILS % (AUTO) 1 % (0-10); EOSINOPHILS # (AUTO) 0.1 10^3/uL (0.0-0.3); EOSINOPHILS % (AUTO) 1 % (0-10); HEMATOCRIT 29 % (40-54); HEMOGLOBIN 10.2 g/dL (13.3-17.7); LYMPHOCYTES # (AUTO) 1.1 10^3/uL (1.0-4.0); LYMPHOCYTES % (AUTO) 11 % (12-44); MEAN CORPUSCULAR HEMOGLOBIN 29 pg (25-34); MEAN CORPUSCULAR HGB CONC 35 g/dL (32-36); MEAN CORPUSCULAR VOLUME 83 fL (80-99); MEAN PLATELET VOLUME 11.4 fL (9.0-12.2); MONOCYTES # (AUTO) 1.6 10^3/uL (0.0-1.0); MONOCYTES % (AUTO) 16 % (0-12); NEUTROPHILS # (AUTO) 7.2 10^3/uL (1.8-7.8); NEUTROPHILS % (AUTO) 71 % (42-75); PLATELET COUNT 385 10^3/uL (130-400); WHITE BLOOD COUNT 10.1 10^3/uL (4.3-11.0)
[2022-08-26 04:14] LABS: ALBUMIN 2.5 GM/DL (3.2-4.5); CHLORIDE 103 MMOL/L (98-107); POTASSIUM 3.4 MMOL/L (3.6-5.0); SODIUM 134 MMOL/L (135-145)
[2022-08-26 04:15] LABS: CALCIUM 7.9 MG/DL (8.5-10.1)
[2022-08-26 04:16] LABS: TRIGLYCERIDES 63 MG/DL (<150); VLDL CHOLESTEROL 13 MG/DL (5-40)
[2022-08-26 04:17] LABS: GLUCOSE 95 MG/DL (70-105); TOTAL PROTEIN 5.7 GM/DL (6.4-8.2)
[2022-08-26 04:18] LABS: BILIRUBIN,TOTAL 3.3 MG/DL (0.1-1.0); CARBON DIOXIDE 22 MMOL/L (21-32)
[2022-08-26 04:20] LABS: ALKALINE PHOSPHATASE 133 U/L (40-136); CREATININE SERUM 2.38 MG/DL (0.60-1.30); GFR ESTIMATED 30
[2022-08-26 04:21] LABS: BUN/CREATININE RATIO 16; CHOLESTEROL 60 MG/DL (< 200)
[2022-08-26 04:22] LABS: HDL CHOLESTEROL < 15 MG/DL (40-60)
[2022-08-26 04:23] LABS: ALANINE AMINOTRANSFERASE 10 U/L (0-55); MAGNESIUM 1.5 MG/DL (1.6-2.4)
[2022-08-26] MEDS ORDERED: FUROSEMIDE 40 MG/4 ML INJ (LASIX) IV ONE (06:00)
[2022-08-26] MEDS ORDERED: NS IV 500 ML 500 ML ONE (06:11)
--- NOTE | 2022-08-26 07:55 | Diagnostic Imaging Report ---
PROCEDURE: CT head wo r/o stroke. TECHNIQUE: Multiple contiguous axial images were obtained through the brain without the use of intravenous contrast. Auto Exposure Controls were utilized during the CT exam to meet ALARA standards for radiation dose reduction. INDICATION: Acute confusion and recent fall COMPARISON: 09/05/2020 CT HEAD: CT images of the head were obtained. FINDINGS: Ventricles and sulci are within normal limits for size. There is no intracranial hemorrhage identified. There is no abnormal mass effect or shift of midline structures. Groundglass density is again seen involving the right sphenoid bone which may be due to fibrous dysplasia with possible component of chronic sinusitis as well. IMPRESSION: Unremarkable CT of the head. Dictated by: Dictated on workstation # [id number]
[2022-08-26] MEDS ORDERED: CEFEPIME 1,000 MG/NS 50 ML IVPB IV SCH ×2 (08:00)
[2022-08-26] MEDS ORDERED: MAGNESIUM OXIDE (MAG-OX)400 MG TAB PO NR (08:30)
[2022-08-26] MEDS ORDERED: KCL 20 MEQ TAB (K-DUR) PO NR (08:30)
--- NOTE | 2022-08-26 08:30 | Diagnostic Imaging Report ---
EXAMINATION: Chest 1 view HISTORY: Fall. Left-sided rib pain. COMPARISON: 08/19/2022. FINDINGS: Interval increase in size in a small to moderate right-sided pleural effusion with bibasilar opacities present. No pneumothorax. Stable prominent cardiac silhouette. No acute displaced rib fractures are seen. IMPRESSION: 1. Increasing small to moderate right-sided pleural effusion with bibasilar opacities. 2. No acute displaced rib fractures. If symptoms persist consider dedicated radiographs of the ribs to further evaluate. Dictated by: Dictated on workstation # [id number]
--- NOTE | 2022-08-26 08:41 | Diagnostic Imaging Report ---
EXAMINATION: CT chest without contrast. TECHNIQUE: Multiple contiguous axial images were obtained through the chest without the use of intravenous contrast. All CT scans use one or more of the following dose optimizing techniques: automated exposure control, MA and/or KvP adjustment based on patient size and exam type or iterative reconstruction. HISTORY: TRAUMA, L RIB PAIN COMPARISON: 05/12/2022 FINDINGS: Thyroid: The thyroid is normal. Mediastinum: Heart size is normal without significant pericardial effusion. The aorta is normal in caliber. No suspicious lymphadenopathy. Lungs and airways: There is a large right pleural effusion with atelectasis or consolidation in the lung bases. No pneumothorax. Linear groundglass opacity within the lingula is new from 05/12/2022. The airways are normal. Upper abdomen: There is mild ascites. Musculoskeletal: There is a mildly displaced fracture of the lateral left 6th rib. IMPRESSION: 1. Mildly displaced lateral left 6th rib fracture. 2. Large right pleural effusion with patchy atelectasis or consolidation in the lungs greatest within the lung bases. 3. Agree with preliminary interpretation. Dictated by: Dictated on workstation # [id number]
--- NOTE | 2022-08-26 08:47 | Consultation-Cardiology ---
HPI-Cardiology Cardiology Consultation: Date of Consultation 08/26/22 Date of Admission 08/25/22 Attending Physician Carolyn Newell Aprn Admitting Physician Admitting Physician: Nahomi Flores MD Attending Physician: Nahomi Flores MD Consulting Physician JENNIFER JORDAN JR, MD HPI: Time Seen by a Provider: 08:47 Chief Complaint: REASON FOR CONSULTATION: Elevated troponin and peripheral edema. I had the pleasure of seeing David on the cardiac stepdown unit at [facility] in [place], [place] this morning. He is known to me from the office. He has a history of coronary artery disease with moderate disease of a diagonal branch noted at cardiac catheterization in 2019, paroxysmal atrial fibrillation status post ablation, mild cardiomyopathy, mild dilatation of the thoracic aorta, hyperlipidemia, stage III chronic kidney disease, and a history of a pulmonary embolism. He states he was doing well until 1 week ago when he started developing increasing bilateral lower extremity edema. He saw his primary provider who gave him an unknown medication that he states begins with the letter P. This started to help with his peripheral edema. However, a few days ago he was walking up and down hills and started developing substernal chest tightness. He denies radiation or associated symptoms. When he stopped walking, the chest discomfort resolved. On the other hand, his peripheral edema was not completely resolving so yesterday he came to the emergency room for further evaluation. He was admitted overnight. He was found to have an elevated troponin level and a cardiology consultation was requested. During his evaluation in the emergency room, he was also found to be COVID-positive. He denies dyspnea, paroxysmal nocturnal dyspnea, orthopnea, palpitations, lightheadedness, or syncope. Soon after I spoke to the patient, he told the nurse he wants to leave [facility] because nobody can do anything for him. Certain portions of this document may have been dictated utilizing voice recognition technology. Inherent to this technology, typographical and grammatical errors may exist. As much as I am diligent to identify and correct these mistakes, some errors may remain in the document. Review of Systems-Cardiology Review of Systems Other comments Review of 10 organ systems is as per the history of present illness, otherwise negative. [id number] Hx Patient Social History Smoking Status: Former Smoker 2nd Hand Smoke Exposure: No Have you traveled recently?: No Alcohol Use?: No Substance type: Opiates/Opioids, Misuse of prescript meds Pt feels they are or have been: No Immunizations Up To Date Tetanus Booster (TDap): Unknown Date of Pneumonia Vaccine: Jul 21, 2018 Date of Influenza Vaccine: Jun 22, 2022 Past Medical History PMH As described under Assessment. Family Medical History Family Medical History: The patient does not know of any family history of premature coronary artery disease in first-degree relatives. Family History: FH: emphysema 19 MOTHER FH: lung cancer 19 FATHER Allergies and Home Medications Allergies Coded Allergies: Iodinated Contrast Media (Verified Allergy, Unknown, 11/14/20) Patient Home Medication List Home Medication List Reviewed: Yes Alprazolam (Xanax) 1 Mg Tablet, 1 MG PO BID PRN for ANXIETY Prescribed by: JUAN MANUEL EVANS on 01/22/21 1326 Last Action: Reviewed Apixaban (Eliquis) 5 Mg Tablet, 5 MG PO BID, (Reported) Entered as Reported by: TAN OTT on 09/24/17 0825 Last Action: Reviewed Aspirin (Aspirin EC) 81 Mg Tablet.dr, 81 MG PO DAILY Prescribed by: NAHOMI FLORES on 08/26/22951 Atorvastatin Calcium (Atorvastatin Calcium) 40 Mg Tablet, 40 MG PO DAILY, (Reported) Entered as Reported by: NANDINI COOK on 03/11/202040 Last Action: Reviewed Bumetanide (Bumetanide) 1 Mg Tablet, 1 MG PO BID Prescribed by: LATRICE AGARWAL on 08/19/222115 Last Action: Reviewed Cefdinir (Cefdinir) 300 Mg Capsule, 300 MG PO BID Prescribed by: NAHOMI FLORES on 08/26/22951 Lactulose (Lactulose) 20 Gram/30 Ml Solution, 10 GM PO BID Prescribed by: NAHOMI FLORES on 08/26/22951 Levothyroxine Sodium (Levothyroxine) 75 Mcg Capsule, 75 MCG PO DAILY, (Reported) Entered as Reported by: MAAME HOUSTON on 06/01/21 0540 Last Action: Reviewed Midodrine HCl (Midodrine HCl) 5 Mg Tablet, 5 MG PO TID, (Reported) Entered as Reported by: NAHOMI FLORES on 08/26/22 0948 Last Action: Reviewed Oxycodone HCl (Oxycodone HCl) 10 Mg Tablet, 10 MG PO Q6H PRN for PAIN-SEVERE (8- 10), (Reported) Entered as Reported by: DALILA VERAS on 03/12/20 1547 Last Action: Reviewed Trazodone HCl (Trazodone HCl) 50 Mg Tablet, 50 MG PO HS, (Reported) Entered as Reported by: NAHOMI FLORES on 08/26/2248 Last Action: Reviewed Discontinued Medications Albuterol Sulfate (Ventolin Hfa) 1 Puff Puff, 2 PUFF IH Q4H Prescribed by: JUAN MANUEL EVANS on 11/14/21 101 Last Action: Discontinued Aspirin (Aspirin EC) 81 Mg Tablet.dr, 81 MG PO DAILY Prescribed by: JUAN MANUEL EVANS on 11/14/21 101 Last Action: Discontinued Cefdinir (Cefdinir) 300 Mg Capsule, 300 MG PO BID Prescribed by: JUAN MANUEL EVANS on 11/14/21 101 Last Action: Discontinued Losartan Potassium (Cozaar) 25 Mg Tablet, 12.5 MG PO DAILY, (Reported) Entered as Reported by: NAHOMI FLORES on 09/05/212205 Last Action: Discontinued Metoprolol Succinate (Metoprolol Succinate) 50 Mg Tab.er.24h, 50 MG PO DAILY Prescribed by: NAHOMI FLORES on 09/07/21 0750 Last Action: Discontinued Omeprazole (Omeprazole) 20 Mg Capsule.dr, 20 MG PO DAILY, (Reported) Entered as Reported by: NAHOMI FLORES on 09/05/212205 Last Action: Discontinued Ondansetron (Ondansetron Odt) 4 Mg Tab.rapdis, 4 MG PO Q4H Prescribed by: KACY MARC on 05/12/221421 Last Action: Discontinued Pantoprazole Sodium (Protonix) 40 Mg Tablet.dr, 40 MG PO DAILY Prescribed by: KACY MARC on 05/12/221421 Last Action: Discontinued Prednisone (Prednisone) 10 Mg Tab.ds.pk, 10 MG PO BID Prescribed by: JUAN MANUEL EVANS on 11/14/21 1013 Last Action: Discontinued Spironolactone (Spironolactone) 25 Mg Tablet, 25 MG PO DAILY, (Reported) Entered as Reported by: NAHOMI FLORES on 12/7/22 0948 Last Action: Reviewed Exam Vital Signs Vital Signs Date Time Temp Pulse Resp B/P (MAP) Pulse Ox O2 Delivery O2 Flow Rate FiO2 08/26/22 10:10 08/26/22 09:00 81 23 96 Room Air 08/26/22 08:00 36.2 Physical Exam Due to the patient's COVID status, I spoke with the patient from the doorway. General: The patient is breathing spontaneously. HENT: Normocephalic. Atraumatic. Skin: There is no pallor. Neurologic: Oriented x3. Cranial nerves III through XII grossly intact. Moving all 4 extremities. Psychiatric: Appears cooperative but as above, soon after I spoke to the patient, he decided to leave AMA.. Labs Laboratory Tests Test 08/25/22 22:38 08/25/22 22:52 08/25/22 22:53 08/25/22 23:36 Range/Units White Blood Count 10.1 4.3-11.0 10^3/uL Red Blood Count 4.28 L 4.30-5.52 10^6/uL Hemoglobin 12.3 L 13.3-17.7 g/dL Hematocrit 35 L 40-54 % Mean Corpuscular Volume 82 80-99 fL Mean Corpuscular Hemoglobin 29 25-34 pg Mean Corpuscular Hemoglobin Concent 35 32-36 g/dL Red Cell Distribution Width 19.9 H 10.0-14.5 % Platelet Count 474 H 130-400 10^3/uL Mean Platelet Volume 10.9 9.0-12.2 fL Immature Granulocyte % (Auto) 0 % Neutrophils (%) (Auto) 80 H 42-75 % Lymphocytes (%) (Auto) 5 L 12-44 % Monocytes (%) (Auto) 13 H 0-12 % Eosinophils (%) (Auto) 1 0-10 % Basophils (%) (Auto) 1 0-10 % Neutrophils # (Auto) 8.1 H 1.8-7.8 10^3/uL Lymphocytes # (Auto) 0.5 L 1.0-4.0 10^3/uL Monocytes # (Auto) 1.3 H 0.0-1.0 10^3/uL Eosinophils # (Auto) 0.1 0.0-0.3 10^3/uL Basophils # (Auto) 0.1 0.0-0.1 10^3/uL Immature Granulocyte # (Auto) 0.0 0.0-0.1 10^3/uL Neutrophils % (Manual) 83 % Lymphocytes % (Manual) 5 % Monocytes % (Manual) 12 % Polychromasia MODERATE Poikilocytosis MARKED Anisocytosis MARKED Target Cells MARKED Crenated Cell MARKED Acanthocytes MARKED Erythrocyte Sedimentation Rate 8 0-30 MM/HR Prothrombin Time 23.3 H 12.2-14.7 SEC INR Comment 2.0 H 0.8-1.4 Activated Partial Thromboplast Time 39 H 24-35 SEC Sodium Level 135 135-145 MMOL/L Potassium Level 3.1 L 3.6-5.0 MMOL/L Chloride Level 100 98-107 MMOL/L Carbon Dioxide Level 22 21-32 MMOL/L Anion Gap 13 5-14 MMOL/L Blood Urea Nitrogen 37 H 7-18 MG/DL Creatinine 2.39 H 0.60-1.30 MG/DL Estimat Glomerular Filtration Rate 30 BUN/Creatinine Ratio 15 Glucose Level 92 70-105 MG/DL Calcium Level 8.7 8.5-10.1 MG/DL Corrected Calcium 9.3 8.5-10.1 MG/DL Magnesium Level 1.4 L 1.6-2.4 MG/DL Total Bilirubin 3.9 H 0.1-1.0 MG/DL Aspartate Amino Transf (AST/SGOT) 24 5-34 U/L Alanine Aminotransferase (ALT/SGPT) 13 0-55 U/L Alkaline Phosphatase 162 H 40-136 U/L Total Creatine Kinase 113 30-200 U/L Creatine Kinase MB 2.1 <6.6 NG/ML Myoglobin 482.2 H 10.0-92.0 NG/ML Troponin I 0.344 *H <0.028 NG/ML C-Reactive Protein High Sensitivity 2.57 H 0.00-0.50 MG/DL B-Type Natriuretic Peptide 1659.1 H <100.0 PG/ML Total Protein 7.2 6.4-8.2 GM/DL Albumin 3.2 3.2-4.5 GM/DL Amylase Level 41 25-125 U/L Lipase 23 8-78 U/L Procalcitonin 0.60 H <0.10 NG/ML Acetaminophen Level < 10 L 10-30 UG/ML Serum Alcohol < 10 <10 MG/DL Lactic Acid Level 2.12 *H 0.50-2.00 MMOL/L Ammonia 53 H 11-32 UMOL/L Influenza Type A (RT-PCR) Not Detected Not Detecte Influenza Type B (RT-PCR) Not Detected Not Detecte SARS-CoV-2 RNA (RT-PCR) Detected H Not Detecte Urine Color ORANGE Urine Clarity CLEAR Urine pH 5.0 5-9 Urine Specific [place] >=1.030 1.016-1.022 Urine Protein 2+ H NEGATIVE Urine Glucose (UA) TRACE H NEGATIVE Urine Ketones NEGATIVE NEGATIVE Urine Nitrite NEGATIVE NEGATIVE Urine Bilirubin 1+ H NEGATIVE Urine Urobilinogen 4.0 < = 1.0 MG/DL Urine Leukocyte Esterase NEGATIVE NEGATIVE Urine RBC (Auto) NEGATIVE NEGATIVE Urine RBC NONE /HPF Urine WBC 2-5 /HPF Urine Squamous Epithelial Cells 2-5 /HPF Urine Crystals NONE /LPF Urine Bacteria LARGE H /HPF Urine Casts PRESENT /LPF Urine Hyaline Casts 5-10 H /LPF Urine Granular Casts 0-2 H /LPF Urine Mucus LARGE H /LPF Urine Culture Indicated CULTURE PENDING Urine Opiates Screen NEGATIVE NEGATIVE Urine Oxycodone Screen POSITIVE H NEGATIVE Urine Methadone Screen NEGATIVE NEGATIVE Urine Propoxyphene Screen NEGATIVE NEGATIVE Urine Barbiturates Screen NEGATIVE NEGATIVE Ur Tricyclic Antidepressants Screen NEGATIVE NEGATIVE Urine Phencyclidine Screen NEGATIVE NEGATIVE Urine Amphetamines Screen NEGATIVE NEGATIVE Urine Methamphetamines Screen NEGATIVE NEGATIVE Urine Benzodiazepines Screen POSITIVE H NEGATIVE Urine Cocaine Screen NEGATIVE NEGATIVE Urine Cannabinoids Screen NEGATIVE NEGATIVE Test 08/26/22 03:50 08/26/22 06:40 Range/Units White Blood Count 10.1 4.3-11.0 10^3/uL Red Blood Count 3.56 L 4.30-5.52 10^6/uL Hemoglobin 10.2 L 13.3-17.7 g/dL Hematocrit 29 L 40-54 % Mean Corpuscular Volume 83 80-99 fL Mean Corpuscular Hemoglobin 29 25-34 pg Mean Corpuscular Hemoglobin Concent 35 32-36 g/dL Red Cell Distribution Width 19.9 H 10.0-14.5 % Platelet Count 385 130-400 10^3/uL Mean Platelet Volume 11.4 9.0-12.2 fL Immature Granulocyte % (Auto) 1 % Neutrophils (%) (Auto) 71 42-75 % Lymphocytes (%) (Auto) 11 L 12-44 % Monocytes (%) (Auto) 16 H 0-12 % Eosinophils (%) (Auto) 1 0-10 % Basophils (%) (Auto) 1 0-10 % Neutrophils # (Auto) 7.2 1.8-7.8 10^3/uL Lymphocytes # (Auto) 1.1 1.0-4.0 10^3/uL Monocytes # (Auto) 1.6 H 0.0-1.0 10^3/uL Eosinophils # (Auto) 0.1 0.0-0.3 10^3/uL Basophils # (Auto) 0.1 0.0-0.1 10^3/uL Immature Granulocyte # (Auto) 0.1 0.0-0.1 10^3/uL Sodium Level 134 L 135-145 MMOL/L Potassium Level 3.4 L 3.6-5.0 MMOL/L Chloride Level 103 98-107 MMOL/L Carbon Dioxide Level 22 21-32 MMOL/L Anion Gap 9 5-14 MMOL/L Blood Urea Nitrogen 38 H 7-18 MG/DL Creatinine 2.38 H 0.60-1.30 MG/DL Estimat Glomerular Filtration Rate 30 BUN/Creatinine Ratio 16 Glucose Level 95 70-105 MG/DL Lactic Acid Level 1.40 0.50-2.00 MMOL/L Calcium Level 7.9 L 8.5-10.1 MG/DL Corrected Calcium 9.1 8.5-10.1 MG/DL Magnesium Level 1.5 L 1.6-2.4 MG/DL Total Bilirubin 3.3 H 0.1-1.0 MG/DL Aspartate Amino Transf (AST/SGOT) 20 5-34 U/L Alanine Aminotransferase (ALT/SGPT) 10 0-55 U/L Alkaline Phosphatase 133 40-136 U/L Troponin I 0.436 *H 0.454 *H <0.028 NG/ML Total Protein 5.7 L 6.4-8.2 GM/DL Albumin 2.5 L 3.2-4.5 GM/DL Triglycerides Level 63 <150 MG/DL Cholesterol Level 60 < 200 MG/DL LDL Cholesterol Direct 39 1-129 MG/DL VLDL Cholesterol 13 5-40 MG/DL HDL Cholesterol < 15 L 40-60 MG/DL Radiology ELECTROCARDIOGRAM (05/01/2022): Sinus rhythm with left anterior hemiblock and possible old anterior myocardial infarction. LABS (04/13/2022): Sodium 139. Potassium 4.3. Glucose 123. BUN 21. Creatinine 1.73. GFR 44. Total bilirubin 1.3. Alkaline phosphatase 151 (high). AST 15. ALT 10. WBC 9.9. Hemoglobin 10.8. Platelets 353,000. LABS (04/09/2022): Sodium 139. Potassium 5. Glucose 76. BUN 20. Creatinine 1.47. GFR 53. TSH 3.58. ADVANCED CARDIAC MRI WITH AND WITHOUT CONTRAST (02/13/2022): 1. Mild left atrial enlargement. There is trace regurgitant phase dispersion associated with the mitral valve. 2. No significant focal pulmonary vein stenosis. Early branching of the right superior pulmonary vein and common left pulmonary vein again noted. 3. Normal left ventricular size and wall thickness with lower limits normal ejection fraction of about 49%. 4. Mild right atrial enlargement. Right ventricle normal size and wall thickness normal ejection fraction of about 49%. 4. Mild right atrial enlargement. Right ventricle normal size and wall thickness with mildly decreased ejection fraction of about 41%. 5. Small right and trace left pleural effusions. REGADENOSON NUCLEAR STRESS TEST (02/07/2022): 1. The study is mildly abnormal with mild global hypokinesis and mild left ventricular systolic dysfunction with a calculated ejection fraction of 47%. 2. There is a small, predominantly fixed perfusion defect of mild intensity involving the apical inferior/inferolateral segments which is more prominent on the stress supine acquisitions. We know this might represent diaphragmatic attenuation artifact, a small area of apical inferior/inferolateral ischemia cannot be conclusively ruled out. 3. Pulmonary to myocardial count ratio of 0.47 and TID p.o. of 0.47. 4. The pharmacologic ECG portion of the study is negative for ischemia. 5. Comparison was made with a prior D SPECT study completed 03/27/2020. Ejection fraction was 51%. Previous study was interpreted as probably normal with no evidence of significant myocardial ischemia. Side to side comparison of the perfusion patterns show similar, albeit less pronounced, apical inferior/inferolateral perfusion abnormality in prior study as well. 5. In aggregate the current study is intermediate risk in regards to predicted annual cardiovascular mentality due to mildly reduced LV systolic function. ECHOCARDIOGRAM (02/07/2022): 1. Normal LV size with concentric LV remodeling. 2. Mild global hypokinesis particularly pronounced in the mid and apical anterolateral/anterior wall segments. 3. Mild left ventricular systolic dysfunction. LVEF 45%. 4. Normal RV size with moderately reduced RV systolic function. 5. Mildly dilated right atrium. Normal central venous pressure. 6. Moderate tricuspid and mild mitral regurgitation. 7. Estimated peak systolic PA pressure of 24 mmHg. 8. Mildly dilated aortic root and proximal ascending aorta. 9. No pericardial effusion. LABS (11/14/2021): Sodium 133. Potassium 3.8. BUN 17. Creatinine 1.26. GFR 64. Glucose 103. Total cholesterol 81. Triglycerides 59. HDL 19. Direct LDL 46. Troponin 0.116. LABS (11/13/2021): Hemoglobin 11.3. Platelets 430,000. LABS (06/01/2021): Sodium 140. Potassium 3.9. Creatinine 1.2. GFR 61. Glucose 93 . Liver function tests normal. Total cholesterol 117. Triglycerides 71. HDL 24. Direct LDL 79. Hemoglobin 10.7. Platelets 545,000. Troponin 0.095. CARDIAC CATHETERIZATION (10/13/2018): 1. Type II myocardial infarction likely secondary to rapid atrial fibrillation. 2. Moderate first diagonal disease, with patent rest of the coronary arteries. 3. Increased LVEDP suggests diastolic dysfunction. ECG Impression ECG Comment Sinus tachycardia at 101 bpm with low voltage in the precordial leads, left anterior hemiblock, incomplete right bundle branch block, and possible old inferior and anterior myocardial infarction's. Diagnosis/Problems Diagnosis/Problems (1) Non-ST elevation myocardial infarction (NSTEMI), initial care episode Assessment & Plan: His troponin levels are elevated but flat. He also has acute kidney injury on chronic kidney disease some of which may explain the abnormal troponin level. He does not have any ischemic changes on his electrocardiogram and had a cardiac catheterization 3 years ago that showed nonobstructive disease. This could certainly be due to progression of the coronary artery disease and a type I non-ST elevation myocardial infarction. He would not currently be a candidate for cardiac catheterization until his renal function improves. I had planned to discuss treatment options with the patient but soon after I saw the patient and before I was able to write my note, he left the hospital AGAINST MEDICAL ADVICE. I have asked the nursing staff to schedule him a follow-up appointment with me in the office within 1 month. (2) Acute on chronic HFrEF (heart failure with reduced ejection fraction) Assessment & Plan: He has peripheral edema and his BNP level is elevated. The most recent assessment of his ejection fraction was around 40% by cardiac MRI as noted above. I was planning to give him some intravenous diuretic but as above, the patient left AMA. (3) Cardiomyopathy Status: Chronic Assessment & Plan: As above, his most recent ejection fraction was around 40% by cardiac MRI. He had not been on any of the usual guideline directed medical therapy due to chronic hypotension requiring midodrine. His ejection fraction has been above the cutoff for recommending a prophylactic defibrillator. (4) Paroxysmal atrial fibrillation Assessment & Plan: He had 2 previous ablations in the past. He has been on apixaban for stroke prophylaxis which should be continued. (5) Coronary artery disease with unstable angina pectoris Assessment & Plan: As above, he may have suffered a type I non-ST elevation myocardial infarction but unfortunately, he left the facility AMA. (6) Primary hypertension Assessment & Plan: He has actually been having some intermittent hypotension and has required midodrine for blood pressure support. (7) Mixed hyperlipidemia Assessment & Plan: Continue statin medication. (8) COVID-19 virus infection Status: Acute Assessment & Plan: This was being managed by the hospitalist until the patient left the facility AMA. (9) Acute kidney injury superimposed on chronic kidney disease Assessment & Plan: Etiology unclear. This may be secondary to heart failure and sometimes will improve with intravenous diuresis which I had planned but again, the patient left AMA. JENNIFER JORDAN JR, MD Aug 26, 2022 08:47
[2022-08-26] MEDS ORDERED: LACTULOSE SYRUP 10GM/15ML (ENULOSE) 30ML UDC PO SCH (09:00)
[2022-08-26] MEDS ORDERED: ASPIRIN E.C. 81 MG (ECOTRIN) TAB PO SCH (09:00)
[2022-08-26] MEDS ORDERED: APIXABAN 5 MG (ELIQUIS) TABLET PO SCH (09:00)
[2022-08-26] MEDS ORDERED: SPIR25TA5 PO (09:48)
[2022-08-26] MEDS ORDERED: MIDO5TAB3 PO (09:48)
[2022-08-26] MEDS ORDERED: TRZ50T PO (09:48)
[2022-08-26] MEDS ORDERED: ASPI-1238 PO (09:52)
[2022-08-26] MEDS ORDERED: LACT20SO2 PO (09:52)
[2022-08-26] MEDS ORDERED: CEFD300C3 PO (09:52)
--- NOTE | 2022-08-26 09:54 | Short Stay Summary ---
History of Present Illness History of Present Illness Reason for visit/HPI Pt states he came to ER due to side pain. This morning he is wanting to leave, he states his liver tests are always abnormal and his heart tests are abnormal but there is nothing to do about them. He says he feels the same as he always does and wants to go home, and is going to leave AMA this morning if not discharged. He states his leg swelling is better than it had been in past, but the redness is new in last several days. He denies dizziness or shortness of breath or chest pain. He says he has his medications at home, and is willing to take whatever new scrips we recommend, but is not willing to stay. Per ER notes, he [ ] Date of Admission Aug 26, 2022 at 00:20 Date of Discharge Aug 26, 2022 Time Seen by Provider: 09:00 Attending Physician Carolyn Newell Aprn Admitting Physician Admitting Physician: Nahomi Flores MD Attending Physician: Nahomi Flores MD Consult Allergies and Home Medications Allergies Coded Allergies: Iodinated Contrast Media (Verified Allergy, Unknown, 11/14/20) Patient Home Medication List Home Medication List Reviewed: Yes (Med list here represents meds on discharge.) Alprazolam (Xanax) 1 Mg Tablet, 1 MG PO BID PRN for ANXIETY Prescribed by: JUAN MANUEL EVANS on 01/22/21 1326 Last Action: Reviewed Apixaban (Eliquis) 5 Mg Tablet, 5 MG PO BID, (Reported) Entered as Reported by: TAN OTT on 09/24/17 0825 Last Action: Reviewed Aspirin (Aspirin EC) 81 Mg Tablet.dr, 81 MG PO DAILY Prescribed by: NAHOMI FLORES on 08/26/22951 Atorvastatin Calcium (Atorvastatin Calcium) 40 Mg Tablet, 40 MG PO DAILY, (Reported) Entered as Reported by: NANDINI COOK on 03/11/202040 Last Action: Reviewed Bumetanide (Bumetanide) 1 Mg Tablet, 1 MG PO BID Prescribed by: LATRICE AGARWAL on 08/19/222115 Last Action: Reviewed Cefdinir (Cefdinir) 300 Mg Capsule, 300 MG PO BID Prescribed by: NAHOMI FLORES on 08/26/22951 Lactulose (Lactulose) 20 Gram/30 Ml Solution, 10 GM PO BID Prescribed by: NAHOMI FLORES on 08/26/22 0952 Levothyroxine Sodium (Levothyroxine) 75 Mcg Capsule, 75 MCG PO DAILY, (Reported) Entered as Reported by: MAAME HOUSTON on 06/01/21 0540 Last Action: Reviewed Midodrine HCl (Midodrine HCl) 5 Mg Tablet, 5 MG PO TID, (Reported) Entered as Reported by: NAHOMI FLORES on 08/26/22 09 Last Action: Reviewed Oxycodone HCl (Oxycodone HCl) 10 Mg Tablet, 10 MG PO Q6H PRN for PAIN-SEVERE (8- 10), (Reported) Entered as Reported by: DALILA VERAS on 03/12/20 1547 Last Action: Reviewed Trazodone HCl (Trazodone HCl) 50 Mg Tablet, 50 MG PO HS, (Reported) Entered as Reported by: NAHOMI FLORES on 08/26/22947 Last Action: Reviewed Discontinued Medications Albuterol Sulfate (Ventolin Hfa) 1 Puff Puff, 2 PUFF IH Q4H Prescribed by: JUAN MANUEL EVANS on 11/14/21 101 Last Action: Discontinued Aspirin (Aspirin EC) 81 Mg Tablet., 81 MG PO DAILY Prescribed by: JUAN MANUEL EVANS on 11/14/21 1013 Last Action: Discontinued Cefdinir (Cefdinir) 300 Mg Capsule, 300 MG PO BID Prescribed by: JUAN MANUEL EVANS on 11/14/21 1013 Last Action: Discontinued Losartan Potassium (Cozaar) 25 Mg Tablet, 12.5 MG PO DAILY, (Reported) Entered as Reported by: NAHOMI FLORES on 09/05/212205 Last Action: Discontinued Metoprolol Succinate (Metoprolol Succinate) 50 Mg Tab.er.24h, 50 MG PO DAILY Prescribed by: NAHOMI FLORES on 09/07/21 0750 Last Action: Discontinued Omeprazole (Omeprazole) 20 Mg Capsule.dr, 20 MG PO DAILY, (Reported) Entered as Reported by: NAHOMI FLORES on 09/05/212205 Last Action: Discontinued Ondansetron (Ondansetron Odt) 4 Mg Tab.rapdis, 4 MG PO Q4H Prescribed by: KACY MARC on 05/12/221421 Last Action: Discontinued Pantoprazole Sodium (Protonix) 40 Mg Tablet.dr, 40 MG PO DAILY Prescribed by: KACY MARC on 05/12/22 142 Last Action: Discontinued Prednisone (Prednisone) 10 Mg Tab.ds.pk, 10 MG PO BID Prescribed by: JUAN MANUEL EVANS on 11/14/21 1013 Last Action: Discontinued Spironolactone (Spironolactone) 25 Mg Tablet, 25 MG PO DAILY, (Reported) Entered as Reported by: NAHOMI FLORES on 08/26/22 0948 Last Action: Reviewed Past [id number]-[id number]-[id number] Hx Patient Social History Smoking Status: Former Smoker Former Smoker, Quit: Jul 12, 1985 2nd Hand Smoke Exposure: No Recent Hopitalizations: No Have you traveled recently?: No Alcohol Use?: No Substance type: Opiates/Opioids, Misuse of prescript meds Pt feels they are or have been: No Immunizations Up To Date Tetanus Booster (TDap): Unknown Date of Pneumonia Vaccine: Jul 21, 2018 Date of Influenza Vaccine: Jun 22, 2022 Seasonal Allergies Seasonal Allergies: No Surgeries Yes (SPLEENECTOMY;COLON RESECTION; CARDIAC ABLATION) Abdominal, Appendectomy, Bowel Surgery, Cardiac, Orthopedic Respiratory Yes Pneumonia, Pulmonary Embolism Cardiovascular Yes (S/P CARDIAC ABLATION 08/27/21) Atrial Fibrillation, Chronic Edema/Swelling, Deep Vein Thrombosis, High Cholesterol, Hypertension, Irregular Heartbeat Neurological Yes Headaches /Migraines Reproductive System Hx Reproductive Disorders: No HIV/AIDS: No Genitourinary Yes Prostate Problems Gastrointestinal Yes (COLON CA W/ SURGICAL INTERVENTION;HEP C;GI BLEED 10/2020;SPLEENECTOMY) Gastrointestinal Bleed, Diverticulosis, Hemorrhoids, Hepatitis, Polyps Musculoskeletal Yes (CHRONIC NECK AND BACK PAIN --S/P C-SPINE FUSION) Arthritis, Chronic Back Pain Endocrine History of Endocrine Disorders: Yes Endocrine Disorders: Hypothyroidsim HEENT History of HEENT Disorders: Yes (ALL TEETH REMOVED) Loss of Vision: Denies Hearing Impairment: Denies Cancer Yes Colon Did You Recieve Any Treatments: Yes Type of Treatment: Surgical Intervention Psychosocial History of Psychiatric Problem: Yes (RX DRUG ABUSE) Behavioral Health Disorders: Anxiety, Depression Integumentary History of Skin or Integumenta: Yes (MRSA OF ABDOMINAL WOUND 2010) Blood Transfusions History of Blood Disorders: No Adverse Reaction to a Blood Tr: No Family Medical History Significant Family History: Heart Disease, Hypertension Family Hx: FH: emphysema 19 MOTHER FH: lung cancer 19 FATHER Review of Systems Constitutional: No dizziness, No fever Respiratory: No short of breath Cardiovascular: No chest pain Physical Exam Vital Signs Vital Signs - First Documented 08/25/22 22:28 Temp 38.5 Pulse 108 Resp 20 B/P (MAP) 110/78 (89) Pulse Ox 96 O2 Delivery Room Air Capillary Refill : Less Than 3 Seconds Height, Weight, BMI Height: 6'0" Weight: 224lbs. 0oz. 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 Norm as Tested; No Motor Weakness Skin: Other (marked erythema and warmth of both anterior shins and dorsum of feet) Short Stay Diagnosis Conclusion Labs Laboratory Tests 08/25/22 22:38: White Blood Count 10.1, Red Blood Count 4.28L, Hemoglobin 12.3L, Hematocrit 35L, Mean Corpuscular Volume 82, Mean Corpuscular Hemoglobin 29, Mean Corpuscular Hemoglobin Concent 35, Red Cell Distribution Width 19.9H, Platelet Count 474H, Mean Platelet Volume 10.9, Immature Granulocyte % (Auto) 0, Neutrophils (%) (Auto) 80H, Lymphocytes (%) (Auto) 5L, Monocytes (%) (Auto) 13H, Eosinophils (%) (Auto) 1, Basophils (%) (Auto) 1, Neutrophils # (Auto) 8.1H, Lymphocytes # (Auto) 0.5L, Monocytes # (Auto) 1.3H, Eosinophils # (Auto) 0.1, Basophils # (Auto) 0.1, Immature Granulocyte # (Auto) 0.0, Neutrophils % (Manual) 83, Lymphocytes % (Manual) 5, Monocytes % (Manual) 12, Polychromasia MODERATE, Poikilocytosis MARKED, Anisocytosis MARKED, Target Cells MARKED, Crenated Cell MARKED, Acanthocytes MARKED, Erythrocyte Sedimentation Rate 8, Prothrombin Time 23.3H, INR Comment 2.0H, Activated Partial Thromboplast Time 39H, Sodium Level 135, Potassium Level 3.1L, Chloride Level 100, Carbon Dioxide Level 22, Anion Gap 13, Blood Urea Nitrogen 37H, Creatinine 2.39H, Estimat Glomerular Filtration Rate 30, BUN/Creatinine Ratio 15, Glucose Level 92, Calcium Level 8.7, Corrected Calcium 9.3, Magnesium Level 1.4L, Total Bilirubin 3.9H, Aspartate Amino Transf (AST/SGOT) 24, Alanine Aminotransferase (ALT/SGPT) 13, Alkaline Phosphatase 162H , Total Creatine Kinase 113, Creatine Kinase MB 2.1, Myoglobin 482.2H, Troponin I 0.344*H, C-Reactive Protein High Sensitivity 2.57H, B-Type Natriuretic Peptide 1659.1H, Total Protein 7.2, Albumin 3.2, Amylase Level 41, Lipase 23, Procalcitonin 0.60H, Acetaminophen Level < 10L, Serum Alcohol < 10 08/25/22 22:52: Lactic Acid Level 2.12*H, Ammonia 53H 08/25/22 22:53: Influenza Type A (RT-PCR) Not Detected, Influenza Type B (RT-PCR) Not Detected, SARS-CoV-2 RNA (RT-PCR) DetectedH 08/25/22 23:36: Urine Color ORANGE, Urine Clarity CLEAR, Urine pH 5.0, Urine Specific [place] >=1.030, Urine Protein 2+H, Urine Glucose (UA) TRACEH, Urine Ketones NEGATIVE, Urine Nitrite NEGATIVE, Urine Bilirubin 1+H, Urine Urobilinogen 4.0, Urine Leukocyte Esterase NEGATIVE, Urine RBC (Auto) NEGATIVE, Urine RBC NONE, Urine WBC 2-5, Urine Squamous Epithelial Cells 2-5, Urine Crystals NONE, Urine Bacteria LARGEH, Urine Casts PRESENT, Urine Hyaline Casts 5-10H, Urine Granular Casts 0-2H, Urine Mucus LARGEH, Urine Culture Indicated CULTURE PENDING, Urine Opiates Screen NEGATIVE, Urine Oxycodone Screen POSITIVEH, Urine Methadone Screen NEGATIVE, Urine Propoxyphene Screen NEGATIVE, Urine Barbiturates Screen NEGATIVE, Ur Tricyclic Antidepressants Screen NEGATIVE, Urine Phencyclidine Screen NEGATIVE, Urine Amphetamines Screen NEGATIVE, Urine Methamphetamines Screen NEGATIVE, Urine Benzodiazepines Screen POSITIVEH, Urine Cocaine Screen NEGATIVE, Urine Cannabinoids Screen NEGATIVE 08/26/22 03:50: White Blood Count 10.1, Red Blood Count 3.56L, Hemoglobin 10.2L, Hematocrit 29L, Mean Corpuscular Volume 83, Mean Corpuscular Hemoglobin 29, Mean Corpuscular Hemoglobin Concent 35, Red Cell Distribution Width 19.9H, Platelet Count 385, Mean Platelet Volume 11.4, Immature Granulocyte % (Auto) 1, Neutrophils (%) (Auto) 71, Lymphocytes (%) (Auto) 11L, Monocytes (%) (Auto) 16H, Eosinophils (%) (Auto) 1, Basophils (%) (Auto) 1, Neutrophils # (Auto) 7.2, Lymphocytes # (Auto) 1.1, Monocytes # (Auto) 1.6H, Eosinophils # (Auto) 0.1, Basophils # (Auto) 0.1, Immature Granulocyte # (Auto) 0.1, Sodium Level 134L, Potassium Level 3.4L, Chloride Level 103, Carbon Dioxide Level 22, Anion Gap 9, Blood Urea Nitrogen 38H, Creatinine 2.38H, Estimat Glomerular Filtration Rate 30, BUN/Creatinine Ratio 16, Glucose Level 95, Lactic Acid Level 1.40, Calcium Level 7.9L, Corrected Calcium 9.1, Magnesium Level 1.5L, Total Bilirubin 3.3H, Aspartate Amino Transf (AST/SGOT) 20, Alanine Aminotransferase (ALT/SGPT) 10, Alkaline Phosphatase 133, Troponin I 0.436*H, Total Protein 5.7L, Albumin 2.5L, Triglycerides Level 63, Cholesterol Level 60, LDL Cholesterol Direct 39, VLDL Cholesterol 13, HDL Cholesterol < 15L 08/26/22 06:40: Troponin I 0.454*H NAHOMI FLORES MD Aug 26, 2022 09:54
== END 2022-08-26 10:10 | disposition home or self-care (01) | DRG 871 ==
LOC: EDUNIT# 22:26 → ER 22:27 → CSD 08-26 00:20
PROVIDERS: ADMIT Family Medicine; ATTEND Family Medicine
PROC: 8E0ZXY6 Isolation (ICD-10-PCS; principal; 2022-08-26)
DX: A41.89 Other specified sepsis (principal); I21.4 Non-ST elevation (NSTEMI) myocardial infarction; U07.1 COVID-19; I50.23 Acute on chronic systolic (congestive) heart failure; I13.0 Hypertensive heart and chronic kidney disease with heart failure and stage 1 through stage 4 chronic kidney disease, or unspecified chronic kidney disease; N17.9 Acute kidney failure, unspecified; N39.0 Urinary tract infection, site not specified; R18.8 Other ascites; I25.110 Atherosclerotic heart disease of native coronary artery with unstable angina pectoris; R65.20 Severe sepsis without septic shock; Z79.82 Long term (current) use of aspirin; Z79.899 Other long term (current) drug therapy; Z87.891 Personal history of nicotine dependence; F11.90 Opioid use, unspecified, uncomplicated; Z86.718 Personal history of other venous thrombosis and embolism; G43.909 Migraine, unspecified, not intractable, without status migrainosus; K57.90 Diverticulosis of intestine, part unspecified, without perforation or abscess without bleeding; M19.90 Unspecified osteoarthritis, unspecified site; G89.29 Other chronic pain; M54.9 Dorsalgia, unspecified; E03.9 Hypothyroidism, unspecified; F41.9 Anxiety disorder, unspecified; F32.A Depression, unspecified; I48.0 Paroxysmal atrial fibrillation; N18.30 Chronic kidney disease, stage 3 unspecified; Z86.711 Personal history of pulmonary embolism; E78.2 Mixed hyperlipidemia; B19.20 Unspecified viral hepatitis C without hepatic coma; Z90.81 Acquired absence of spleen
CPT/HCPCS: 36415; 70450; 71045; 71250; 80053; 80061; 80306; 80320; 80329; 81000; 82140; 82150; 82550; 82553; 83605; 83690; 83735; 83874; 83880; 84145; 84484; 85007; 85025; 85027; 85610; 85652; 85730; 86141; 87040; 87088; 87636; 93005; 93041

== ENCOUNTER 2022-08-28 09:02 | Emergency (ER) | payer MEDICAID ==
[~2022-08-28 09:02] MED LIST changes: +MIDO5TAB3 PO; +SPIR25TA5 PO; +TRZ50T PO
== END 2022-08-28 10:20 | disposition left against medical advice (07) ==
LOC: EDUNIT# 09:02 → ER FS 09:04
DX: K92.0 Hematemesis (principal)

== ENCOUNTER 2022-08-31 13:23 | Emergency (ER) | payer MEDICAID ==
[~2022-08-31] VITALS: Ht 182 cm; Wt 98.4 kg
[2022-08-31] MEDS ORDERED: LACTULOSE SYRUP 10GM/15ML (ENULOSE) 30ML UDC PO ONE (13:45)
[2022-08-31 13:59] LABS: BASOPHILS # (AUTO) 0.1 10^3/uL (0.0-0.1); BASOPHILS % (AUTO) 1 % (0-10); EOSINOPHILS # (AUTO) 0.1 10^3/uL (0.0-0.3); EOSINOPHILS % (AUTO) 1 % (0-10); HEMATOCRIT 34 % (40-54); HEMOGLOBIN 12.2 g/dL (13.3-17.7); LYMPHOCYTES # (AUTO) 0.8 10^3/uL (1.0-4.0); LYMPHOCYTES % (AUTO) 7 % (12-44); MEAN CORPUSCULAR HEMOGLOBIN 29 pg (25-34); MEAN CORPUSCULAR HGB CONC 36 g/dL (32-36); MEAN CORPUSCULAR VOLUME 80 fL (80-99); MEAN PLATELET VOLUME 11.3 fL (9.0-12.2); MONOCYTES % (AUTO) 9 % (0-12); NEUTROPHILS # (AUTO) 9.1 10^3/uL (1.8-7.8); NEUTROPHILS % (AUTO) 83 % (42-75); PLATELET COUNT 441 10^3/uL (130-400); WHITE BLOOD COUNT 11.1 10^3/uL (4.3-11.0)
[2022-08-31 14:04] LABS: INR 3.5 (0.8-1.4); PROTHROMBIN TIME PATIENT 35.5 SEC (12.2-14.7)
[2022-08-31 14:05] LABS: ALBUMIN 3.2 GM/DL (3.2-4.5); BILIRUBIN,TOTAL 3.1 MG/DL (0.1-1.0); CALCIUM 8.9 MG/DL (8.5-10.1); CREATININE SERUM 4.12 MG/DL (0.60-1.30); POTASSIUM 3.8 MMOL/L (3.6-5.0); TOTAL PROTEIN 6.9 GM/DL (6.4-8.2)
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
--- NOTE | 2022-08-31 14:25 | Diagnostic Imaging Report ---
EXAMINATION: Chest 1 view HISTORY: Swelling COMPARISON: 08/25/2022 FINDINGS: Stable enlargement of the cardiac silhouette. Stable right pleural effusion with bibasilar interstitial and airspace opacities. No pneumothorax. The osseous structures are intact. IMPRESSION: 1. Persistent right pleural effusion with bibasilar atelectasis or consolidation. Dictated by: Dictated on workstation # [id number]
[2022-08-31 14:32] LABS: BAND NEUTROPHILS 0 %; BASOPHILS % (MANUAL) 1 %; EOSINOPHILS % (MANUAL) 1 %; LYMPHOCYTES % (MANUAL) 4 %; MONOCYTES % (MANUAL) 2 %; NEUTROPHILS % (MANUAL) 92 %; POLYCHROMASIA SLIGHT
[2022-08-31 14:33] LABS: ACANTHOCYTES MARKED; ANISOCYTOSIS MARKED; HYPOCHROMASIA MODERATE; SCHISTOCYTES SLIGHT; TARGET CELLS MODERATE
[2022-08-31 14:34] LABS: POIKILOCYTOSIS MARKED
[2022-08-31] MEDS ORDERED: cefTRIAXone 1 GM PRE-MIX 50 ML IV ONE (16:15)
[2022-08-31] MEDS ORDERED: BUMETANIDE 1 MG/4 ML (BUMEX) VIAL IV ONE (18:30)
[2022-08-31] MEDS: NS IV 1000 ML 1,000 ML IV SCH (18:35)
[2022-08-31 18:47] LABS: BILIRUBIN,URINE NEGATIVE (NEGATIVE); CLARITY,URINE CLEAR; COLOR,URINE ORANGE; GLUCOSE, URINE (UA) NEGATIVE (NEGATIVE); KETONES,URINE NEGATIVE (NEGATIVE); LEUKOCYTE ESTERASE ,URINE NEGATIVE (NEGATIVE); NITRITE,URINE NEGATIVE (NEGATIVE); PH,URINE 5.5 (5-9); PROTEIN,URINE 1+ (NEGATIVE)
[2022-08-31 18:53] LABS: BACTERIA,URINE FEW /HPF; WBC,URINE 0-2 /HPF
[2022-09-01] MEDS: NS IV 1000 ML 1,000 ML IV SCH (05:04)
[2022-09-01] MEDS ORDERED: APIXABAN 5 MG (ELIQUIS) TABLET PO ONE (06:30)
[2022-09-01] MEDS ORDERED: LEVOTHYROXINE 75 MCG (LEVOTHROID) TABLET PO ONE (06:30)
[2022-09-01 07:14] LABS: BASOPHILS # (AUTO) 0.1 10^3/uL (0.0-0.1); BASOPHILS % (AUTO) 1 % (0-10); EOSINOPHILS # (AUTO) 0.3 10^3/uL (0.0-0.3); EOSINOPHILS % (AUTO) 3 % (0-10); HEMATOCRIT 32 % (40-54); HEMOGLOBIN 11.6 g/dL (13.3-17.7); LYMPHOCYTES # (AUTO) 0.9 10^3/uL (1.0-4.0); LYMPHOCYTES % (AUTO) 10 % (12-44); MEAN CORPUSCULAR HEMOGLOBIN 29 pg (25-34); MEAN CORPUSCULAR HGB CONC 36 g/dL (32-36); MEAN CORPUSCULAR VOLUME 80 fL (80-99); MEAN PLATELET VOLUME 10.8 fL (9.0-12.2); MONOCYTES # (AUTO) 1.1 10^3/uL (0.0-1.0); MONOCYTES % (AUTO) 11 % (0-12); NEUTROPHILS # (AUTO) 7.3 10^3/uL (1.8-7.8); NEUTROPHILS % (AUTO) 75 % (42-75); PLATELET COUNT 332 10^3/uL (130-400); WHITE BLOOD COUNT 9.7 10^3/uL (4.3-11.0)
[2022-09-01 07:29] LABS: CALCIUM 8.5 MG/DL (8.5-10.1); CREATININE SERUM 3.89 MG/DL (0.60-1.30); POTASSIUM 3.5 MMOL/L (3.6-5.0)
[2022-09-01] MEDS ORDERED: LACTULOSE SYRUP 10GM/15ML (ENULOSE) 30ML UDC PO ONE (07:45)
[2022-09-01] MEDS ORDERED: BUMETANIDE 1 MG/4 ML (BUMEX) VIAL IV STA (07:53)
[2022-09-01] MEDS ORDERED: ONDANSETRON 4 MG/2 ML (SDV) Z0FRAN IVP ONE (14:30)
[2022-09-01 15:00] VITALS: BP 107/79
== END 2022-09-01 14:45 | disposition short-term general hospital (02) ==
LOC: EDUNIT# 13:23 → ER 13:24
DX: L03.115 Cellulitis of right lower limb (principal); L03.116 Cellulitis of left lower limb; I50.9 Heart failure, unspecified; R18.8 Other ascites; N17.9 Acute kidney failure, unspecified; Z86.19 Personal history of other infectious and parasitic diseases
CPT/HCPCS: 36415; 71045; 80048; 80053; 81000; 82140; 83605; 83880; 84484; 85007; 85025; 85027; 85610; 85730; 87040; 87088; 93005